=== PATIENT | male | born 1940 | race African-American/Black ===

== ENCOUNTER → 2017-04-20 19:02 | Inpatient (IN) | payer OTHER ==
--- NOTE | 2015-06-26 21:49 | PDOC ---
History of Present Illness - General Chief Complaint: Bleeding from Anus Stated Complaint: RECTAL BLEEDING Time Seen by Provider: 06/26/15 21:49 - History of Present Illness Initial Comments: 06/26/15 21:57 The patient is a 75 year old male with past medical history of hypertension, diabetes, and recent ingrown hernia, who presents to the emergency department with complaints of rectal bleeding that started today. Before being evaluated in the ED he felt the urge to use the restroom and syncopized while walking resulting in him falling and hitting his head. (Marnie Willoughby) Past History - Travel Have you traveled outside of the country in the last 21 days: No Have you been in close contact with anyone: No Do you have fever or illness?: Yes - Past Medical History Diabetes: Yes HTN: Yes Suicide Attempt (Hx): No Other medical history: inguinal hernia L - Immunization History Immunization Up to Date: No - Psycho/Social/Smoking Cessation Hx Anxiety: No Suicidal Ideation: No Smoking Status: No Smoking History: Never smoked Have you smoked in the past 12 months: No Number of Cigarettes Smoked Daily: 0 Information on smoking cessation initiated: No Hx Alcohol Use: No Drug/Substance Use Hx: No Substance Use Type: None <Carmelo Walker - Last Filed: 06/26/15 23:47> - Past Medical History Allergies/Adverse Reactions: Allergies Allergy/AdvReac Type Severity Reaction Status Date / Time No Known Allergies Allergy Verified 06/26/15 21:31 Home Medications: Ambulatory Orders Amlodipine Besylate [Norvasc -] 5 mg PO DAILY #30 tablet 06/01/15 Lisinopril [Prinivil -] 10 mg PO DAILY #30 tablet 06/01/15 Metoprolol Tartrate [Lopressor -] 25 mg PO DAILY #30 tablet 06/01/15 Pantoprazole Sodium [Protonix -] 40 mg PO DAILY #30 tablet.ec 06/01/15 Repaglinide [Prandin -] 0.5 mg PO TIDCM #90 tablet 06/01/15 Review of Systems - Review of Systems Able to Perform ROS?: Yes Is the patient limited Wallisian proficient: No All Other Systems: Reviewed and Negative <Marnie Willoughby - Last Filed: 06/27/15 00:38> - Review of Systems Comments:: 06/26/15 21:58 CONSTITUTIONAL: Absent: fever, no chills, no fatigue EYES: Absent: visual changes ENT: Absent: ear pain, no sore throat CARDIOVASCULAR: Absent: chest pain, no palpitations RESPIRATORY: Absent: cough, no SOB GI: Absent: abdominal pain, no nausea, no vomiting, no constipation, no diarrhea Present: bleeding from anus GENITOURINARY: Absent: dysuria, no frequency, no hematuria MUSKULOSKELETAL: Absent: back pain, no arthralgia, no myalgia SKIN: Absent: rash NEURO: Absent: headache (Marnie Willoughby) *Physical Exam - Vital Signs Vital Signs: Last Vital Signs Temp Pulse Resp BP Pulse Ox 98.1 F 104 H 18 122/61 99 06/27/15 00:14 06/27/15 00:14 06/27/15 00:14 06/27/15 00:14 06/27/15 00:14 - Physical Exam Comments: 06/26/15 22:00 GENERAL: Well-appearing, well-nourished. No apparent distress. HEENT: Normocephalic, atraumatic. PERRL, EOM intact. no scleral icterus CARDIOVASCULAR: Normal S1, S2. Regular rate and rhythm. PULMONARY: Clear to auscultation bilaterally. ABDOMEN: non-distended, non-tender. + abdomen is soft greyson melena per rectum EXTREMITIES: Normal ROM in all four extremities. No gross deformities. SKIN: Warm, dry. No rash, skin shows no evidence of palor NEUROLOGICAL: No focal neurological deficits. Slightly altered but arousable, (Marnie Willoughby) Procedures ECG Review #1 06/26/15 22:35 Sinus tachycardia possible left atrial enlargement left ventricular hypertrophy with repolarization abnormality. Abnormal ECG Vent. Rate: 102 BPM (Marnie Willoughby) ED Treatment Course - LABORATORY CBC & Chemistry Diagram: 06/26/15 22:08 06/26/15 21:50 <Carmelo Walker - Last Filed: 06/26/15 23:47> - LABORATORY CBC & Chemistry Diagram: 06/26/15 22:08 06/26/15 21:50 <Marnie Willoughby - Last Filed: 06/27/15 00:38> - ADDITIONAL ORDERS Additional order review: Laboratory Results 06/26/15 21:50 INR 1.24 H Sodium 143 Potassium 3.4 L Chloride 106 Carbon Dioxide 26 Anion Gap 11 BUN 18 D Creatinine 1.6 H D Creat Clearance w eGFR 42.58 Random Glucose 252 H D Lactic Acid 3.048 H Calcium 9.0 Magnesium 1.9 Total Bilirubin 0.4 D AST 10 L ALT 17 D Alkaline Phosphatase 82 Creatine Kinase 152 Creatine Kinase Index 0.7 CK-MB (CK-2) 1.077 CK-MB (CK-2) Rel Index Cancelled Troponin I 0.02 L Total Protein 7.5 Albumin 3.6 Lipase 140 Blood Type Cancelled Antibody Screen Cancelled Crossmatch See Detail Spec Expiration Date Cancelled 06/26/15 06/26/15 22:08 21:50 RBC 3.50 L Cancelled MCV 89.4 Cancelled MCHC 33.1 Cancelled RDW 14.2 Cancelled MPV 9.4 Cancelled Neutrophils % 52.0 Cancelled Lymphocytes % 37.3 Cancelled Monocytes % 4.6 Cancelled Eosinophils % 5.3 H Cancelled Basophils % 0.8 Cancelled - RADIOLOGY Radiograph Interpretation: 06/27/15 00:36 EXAM: CT of the cervical spine without contrast. Impression: no fracture; as above. EXAM: CT of the brain without contrast. Impression: no hemorrhage or fracture. EXAM: CT evaluation of the abdomen & pelvis without contrast. Impression: right inguinal hernia, as above. Reported by: Reagan Patel MD (Case,Marnie) - Medications Given in the ED: ED Medications Discontinued Medications Generic Name Dose Route Start Last Admin Trade Name Freq PRN Reason Stop Dose Admin Sodium Chloride 1,000 mls @ 1,000 mls/hr 06/26/15 22:35 06/26/15 22:45 Normal Saline - IV 06/26/15 23:34 1,000 mls/hr ASDIR STA Administration Ondansetron HCl 8 mg 06/26/15 22:35 06/26/15 22:47 Zofran Injection - IVPUSH 06/26/15 22:36 8 mg ONCE ONE Administration Medical Decision Making - Critical Care Time Total Critical Care Time (minutes): 60 Critical Care Statement: The care of this patient involved high complexity decision making to prevent further life threatening deterioration of the patient 's condition and/or to evalute & treat vital organ system(s) failure or risk of failure. <Emelle,Sargine - Last Filed: 06/26/15 23:47> - Medical Decision Making 06/26/15 23:47 The scribe's documentation has been prepared under my direction and personally reviewed by me in its entirety. I confirm that the note above accurately reflects all work, treatment, procedures, and medical decision making performed by me. 75-year-old male who presents with a complaint of lower GI bleed. Before coming to the emergency department, the patient had one large bloody bowel movement. Patient was triaged and found to be tachycardic to 120. Denies any nausea vomiting. Denies any abdominal pain. Patient was recently admitted and discharged in the hospital for incarcerated inguinal hernia and small bowel obstruction. Patient did not have surgery at that time. There was no report of any GI bleed at that time also. While in the emergency department, the patient felt the need to have another bowel movement and when he got up he syncopized and hit his head on the floor. A large amount of blood was noted coming from the rectal area. 2 lines were placed in the patient and labs and in addition to CT of the head, cervical spine, and abdomen/pelvis. Hemoglobin was noted to be at 10, which dropped from had dropped tremendously from 13 from the previous admission. Patient also has an acute renal insufficiency with a creatinine of 1.6. Patient is persistently tachycardic. Patient has been accepted by the hospitalist service for admission. Patient has been accepted by Dr. Mast to go to the ICU. Dr. Cast who is covering for Dr. Michelle has been consult and is aware of the patient. 2 units of blood has been ordered for the patient to be infused. (Carmelo Walker) 06/26/15 23:[address] Cast, he was made aware of the patient's status. (Marnie Willoughby) *DC/Admit/Observation/Transfer - Discharge Dispostion Admit: Yes <Carmelo Walker - Last Filed: 06/26/15 23:47> - Diagnosis Diagnosis at time of Disposition: Lower GI bleed - Discharge Dispostion Condition at time of disposition: Guarded - Referrals - Patient Instructions - Post Discharge Activity - Attestations Scribe Attestion: Documentation prepared by Marnie Willoughby, acting as durable medical equipment repairer for Carmelo Walker MD, /DO.
[2015-06-26 22:13] LABS: INR 1.24 (0.86-1.14); PROTHROMBIN TIME (PATIENT) 13.4 SEC (9.5-11.7)
[2015-06-26 22:23] LABS: ALBUMIN 3.6 g/dl (3.5-5.0); BILIRUBIN,TOTAL 0.4 mg/dL (0.2-1.0); CREATININE 1.6 mg/dL (0.6-1.3); MAGNESIUM 1.9 mg/dL (1.8-2.4); TOT PROT 7.5 g/dl (6.4-8.2)
[2015-06-26 22:27] LABS: TROPONIN I 0.02 ng/ml (0.03-0.5)
[2015-06-26 23:19] LABS: BASOPHIL 0.8 % (0-2.0); EOSINOPHIL 5.3 % (0-4.5); MCH 29.6 pg (25.7-33.7); MCHC 33.1 g/dl (32.0-35.9); MEAN CELL VOLUME 89.4 fl (80-96); MEAN PLT VOLUME 9.4 fl (7.5-11.1); PLATELET COUNT 198 K/MM3 (134-434); RDW 14.2 % (11.9-15.9); WHITE BLOOD COUNT 12.6 K/mm3 (4.0-10.0)
--- NOTE | 2015-06-27 00:04 | HP ---
Admitting History and Physical - Admission History of Present Illness: 75yo M c/o BRBPR that started today during a BM at 1500. Pt states that he had the urge to defecate and had a large BRBPR with loose stools. Pt stated several hours later he had another BM with black tarry stools. While in the ER pt had to use the restroom again and when ambulating to the restroom syncopized and hit his head on the floor, sustaining a laceration to the inner left side of bottom lip. He stated he had pain on defecation but denies straining, and was having normal stools for the past several days and had normal brown stools twice daily. +nausea and dizziness that began in the ER. Pt denies CP, SOB, palpitation, blurred vision, fever, chills, V/C. Denies frequent NSAID or ASA use. Pt states he had a bleed many years ago but not as severe as this episodes. Pt was recently discharged 06/01/15 for HTN urgency. PMHx: HTN, DM, inguinal hernia PSHx: hernia repair SOcial Hx: denies ETOH, TObacco, and illicit drug use Family Hx: unknown type of stomach disease in father, CONSTITUTIONAL: generalized weakness Absent: fever, chills, diaphoresis, , malaise, loss of appetite HEENT: Absent: rhinorrhea, nasal congestion, throat pain, throat swelling, difficulty swallowing, mouth swelling, ear pain, eye pain, visual Changes CARDIOVASCULAR: Absent: chest pain, syncope, palpitations, irregular heart rate, lightheadedness , peripheral edema RESPIRATORY: Absent: cough, shortness of breath, dyspnea with exertion, orthopnea, wheezing, stridor, hemoptysis GASTROINTESTINAL:abdominal pain, nausea, melena, hematochezia Absent: abdominal distension, vomiting, diarrhea, constipation, GENITOURINARY: Absent: dysuria, frequency, urgency, hesitancy, hematuria, flank pain, genital pain MUSCULOSKELETAL: Absent: myalgia, arthralgia, joint swelling SKIN: Absent: rash, itching, pallor HEMATOLOGIC/IMMUNOLOGIC: Absent: easy bleeding, easy bruising, lymphadenopathy, frequent infections ENDOCRINE: Absent: unexplained weight gain, unexplained weight loss, heat intolerance, cold intolerance NEUROLOGIC: Absent: headache, focal weakness or paresthesia, dizziness, unsteady gait, seizure, mental status changes, bladder or bowel incontinence PSYCHIATRIC: Absent: anxiety, depression, suicidal or homicidal ideation, hallucinations. Medication Instructions Recorded Amlodipine Besylate [Norvasc -] 5 mg PO DAILY #30 tablet 06/01/15 Lisinopril [Prinivil -] 10 mg PO DAILY #30 tablet 06/01/15 Metoprolol Tartrate [Lopressor -] 25 mg PO DAILY #30 tablet 06/01/15 Pantoprazole Sodium [Protonix -] 40 mg PO DAILY #30 tablet.ec 06/01/15 Repaglinide [Prandin -] 0.5 mg PO TIDCM #90 tablet 06/01/15 Last Vital Signs Temp Pulse Resp BP Pulse Ox 97.9 F 120 H 16 126/74 99 06/26/15 21:28 06/26/15 21:28 06/26/15 21:28 06/26/15 21:28 06/26/15 21:51 GENERAL: Well developed, well nourished. Awake & alert. No acute distress. HEENT: Normocephalic, atraumatic. PERRLA, EOMI. No conjunctival pallor. Sclera are non- icteric. Moist mucous membranes. Oropharynx is clear. NECK: Supple. Full ROM. No JVD. Carotid pulses 2+ and symmetric, without bruits. No thyroidmegaly. No lymphadenopathy. CARDIOVASCULAR: S1 S2 tachycardic . No murmurs, rubs, or gallops. Distal pulses are 2+ and symmetric. PULMONARY: No evidence of respiratory distress. Lungs clear to auscultation bilaterally. No wheezing, rales or rhonchi. ABDOMINAL:+reducible right sided inguinal hernia Soft, Non-tender, Non-distended. No rebound or guarding. No organomegaly. Normoactive bowel sounds. MUSCULOSKELETAL Normal range of motion at all joints. No bony deformities or tenderness. No CVA tenderness. EXTREMITIES: No cyanosis. No clubbing. No edema. No calf tenderness. SKIN: Warm and dry. Normal capillary refill. No rashes. No jaundice. NEUROLOGICAL: Alert, awake, appropriate. Cranial nerves 2-12 intact. No deficits to light touch and temperature in face, upper extremities and lower extremities. No motor deficits in the in face, upper extremities and lower extremities. Normoreflexic in the upper and lower extremities. Normal speech. PSYCHIATRIC: Cooperative. Good eye contact. Appropriate mood and affect. CBCD WBC 12.6 K/mm3 (4.0-10.0) H D 06/26/15 22:08 RBC 3.50 M/mm3 (4.00-5.60) L 06/26/15 22:08 Hgb 10.4 GM/dL (11.7-16.9) L D 06/26/15 22:08 Hct 31.3 % (35.4-49) L D 06/26/15 22:08 MCV 89.4 fl (80-96) 06/26/15 22:08 MCHC 33.1 g/dl (32.0-35.9) 06/26/15 22:08 RDW 14.2 % (11.9-15.9) 06/26/15 22:08 Plt Count 198 K/MM3 (134-434) 06/26/15 22:08 MPV 9.4 fl (7.5-11.1) 06/26/15 22:08 CMP Sodium 143 mmol/L (136-145) 06/26/15 21:50 Potassium 3.4 mmol/L (3.5-5.1) L 06/26/15 21:50 Chloride 106 mmol/L (98-107) 06/26/15 21:50 Carbon Dioxide 26 mmol/L (21-32) 06/26/15 21:50 Anion Gap 11 (8-16) 06/26/15 21:50 BUN 18 mg/dL (7-18) D 06/26/15 21:50 Creatinine 1.6 mg/dL (0.6-1.3) H D 06/26/15 21:50 Creat Clearance w eGFR 42.58 (>60) 06/26/15 21:50 Random Glucose 252 mg/dL (74-106) H D 06/26/15 21:50 Calcium 9.0 mg/dL (8.5-10.1) 06/26/15 21:50 Total Bilirubin 0.4 mg/dL (0.2-1.0) D 06/26/15 21:50 AST 10 U/L (15-37) L 06/26/15 21:50 ALT 17 U/L (12-78) D 06/26/15 21:50 Alkaline Phosphatase 82 U/L (50-136) 06/26/15 21:50 Total Protein 7.5 g/dl (6.4-8.2) 06/26/15 21:50 Albumin 3.6 g/dl (3.5-5.0) 06/26/15 21:50 CARDIAC ENZYMES Creatine Kinase 152 IU/L (38-174) 06/26/15 21:50 Troponin I 0.02 ng/ml (0.03-0.5) L 06/26/15 21:50 A/P 75yo M with PMH HTN, DM and inguinal hernia with GI bleed 1. GI bleed- Admit to MICU for close monitoring, continuous cardiac monitoring. 2 large bore IV, Start Protonix ggt, cbc q8H, NS 2L bolus, NS @ 125cc/h, NPO, type and screen, Consult GI for EGD/colonoscopy. transfuse to keep Hgb >7, trend cardiac markers and EKG for possible demand ischemia due to large acute blood loss. No NSAIDS 2. syncopal episodes- due to acute bleed. F/u ct head and c-spine, fall precautions. bedrest 3. Hypokalemia- replete with KCl 10meq x2. repeat in AM 4. DAVID- likely dehydration. IVF, repeat. avoid nephrotoxic meds 5. HTN- currently normotensive. hold oral hypotensives 6. DM- NPO, monitor sugars closely, FS Q6H, ISS, hold oral hypoglycemics 7. Ingunial hernia- reducible. 8. DVT ppx- SCD - Past Medical History Cardiovascular: Yes: HTN Endocrine: Yes: Diabetes Mellitus - Smoking History Smoking history: Never smoked Have you smoked in the past 12 months: No Aproximately how many cigarettes per day: 0 - Alcohol/Substance Use Hx Alcohol Use: No Home Medications - Allergies Allergies/Adverse Reactions: Allergies Allergy/AdvReac Type Severity Reaction Status Date / Time No Known Allergies Allergy Verified 06/26/15 21:31 - Home Medications Home Medications: Ambulatory Orders Amlodipine Besylate [Norvasc -] 5 mg PO DAILY #30 tablet 06/01/15 Lisinopril [Prinivil -] 10 mg PO DAILY #30 tablet 06/01/15 Metoprolol Tartrate [Lopressor -] 25 mg PO DAILY #30 tablet 06/01/15 Pantoprazole Sodium [Protonix -] 40 mg PO DAILY #30 tablet.ec 06/01/15 Repaglinide [Prandin -] 0.5 mg PO TIDCM #90 tablet 06/01/15 Physical Examination Vital Signs: Vital Signs Temperature 97.9 F 06/26/15 21:28 Pulse Rate 120 H 06/26/15 21:28 Respiratory Rate 16 06/26/15 21:28 Blood Pressure 126/74 06/26/15 21:28 O2 Sat by Pulse Oximetry (%) 99 06/26/15 21:51 Labs: CBC, BMP 06/26/15 22:08 06/26/15 21:50
[2015-06-27] MEDS: PANTOPRAZOLE SODIUM 80 MG in SODIUM CHLORIDE 100 ML IVPB SCH ×2 (01:30→11:34)
[2015-06-27 01:39] VITALS: BMI 28.0
[2015-06-27] MEDS: SODIUM CHLORIDE 1,000 ML IV SCH ×3 (02:00→21:47)
[2015-06-27] MEDS: INSULIN SLIDING SCALE (NOVOLOG) 1 VIAL SQ SCH ×4 (06:47→19:07)
[2015-06-27] MEDS: KCL 10 MEQ IVPB 100 ML IVPB SCH ×2 (06:50→06:58)
[2015-06-27 08:12] LABS: MCHC 34.2 g/dl (32.0-35.9); MEAN CELL VOLUME 87.6 fl (80-96); MEAN PLT VOLUME 8.9 fl (7.5-11.1); PLATELET COUNT 132 K/MM3 (134-434); RDW 14.3 % (11.9-15.9); WHITE BLOOD COUNT 9.6 K/mm3 (4.0-10.0)
--- NOTE | 2015-06-27 08:36 | CONSULT ---
Consult Consult Specialty:: PULMONARY/CCM Referred by:: ER Reason for Consultation:: GI Bleed - History of Present Illness Chief Complaint: rectal bleeding History of Present Illness: 75yo male with h/o HTN, DM, inguinal hernia who presents after rectal bleeding. He states that it started out as bright red but then he had another episode where he had dark tarry stools. While in the ER, he had a syncopal episode while walking to the bathroom. He denies taking NSAIDs or ASA. No alcohol. He reports having a colonoscopy in the past but many years ago. No fevers, chills or sweats. No nausea, vomiting or abdominal pain. No chest pain or shortness of breath. Currently in the ICU for monitoring, AM H/H pending. - History Source History Provided By: Patient, Medical Record Limitations to Obtaining History: No Limitations - Past Medical History Cardio/Vascular: Yes: HTN Endocrine: Yes: Diabetes Mellitus - Past Surgical History Past Surgical History: Yes: Hernia Repair - Alcohol/Substance Use Hx Alcohol Use: No - Smoking History Smoking history: Never smoked Have you smoked in the past 12 months: No Aproximately how many cigarettes per day: 0 Home Medications - Allergies Allergies/Adverse Reactions: Allergies Allergy/AdvReac Type Severity Reaction Status Date / Time No Known Allergies Allergy Verified 06/26/15 21:31 - Home Medications Home Medications: Ambulatory Orders Amlodipine Besylate [Norvasc -] 5 mg PO DAILY #30 tablet 06/01/15 Lisinopril [Prinivil -] 10 mg PO DAILY #30 tablet 06/01/15 Metoprolol Tartrate [Lopressor -] 25 mg PO DAILY #30 tablet 06/01/15 Pantoprazole Sodium [Protonix -] 40 mg PO DAILY #30 tablet.ec 06/01/15 Repaglinide [Prandin -] 0.5 mg PO TIDCM #90 tablet 06/01/15 Family Disease History - Family Disease History Other Family History: non-contributory Review of Systems - Review of Systems Constitutional: reports: Weakness. denies: Chills, Fever Eyes: denies: Recent Change in Vision HENT: denies: Nasal Congestion, Throat Pain Neck: denies: Stiffness, Tenderness Cardiovascular: denies: Chest Pain, Edema, Palpitations, Shortness of Breath Respiratory: denies: Cough, Hemoptysis, SOB, Wheezing Gastrointestinal: reports: Melena, Rectal Bleeding. denies: Abdominal Pain, Diarrhea, Nausea Genitourinary: denies: Dysuria, Hematuria Neurological: reports: Syncope. denies: Headache Endocrine: denies: Unexplained Weight Gain, Unexplained Weight Loss Physical Exam Vital Sings: Vital Signs Temperature 98.2 F 06/27/15 06:00 Pulse Rate 83 06/27/15 08:00 Respiratory Rate 20 06/27/15 08:00 Blood Pressure 133/64 06/27/15 08:00 O2 Sat by Pulse Oximetry (%) 99 06/27/15 01:11 Constitutional: Yes: Calm Eyes: Yes: Conjunctiva Clear, EOM Intact HENT: Yes: Atraumatic, Normocephalic Neck: Yes: Supple, Trachea Midline Cardiovascular: Yes: Regular Rate and Rhythm Respiratory: Yes: Regular, Diminished (decreased breath sounds at the bases) ...Clubbing: No Gastrointestinal: Yes: Normal Bowel Sounds, Soft. No: Tenderness Edema: No Neurological: Yes: Alert, Oriented Labs: CBC, BMP 06/27/15 07:40 Imaging - Results Chest X-ray: Report Reviewed, Image Reviewed (no infiltrates) Assessment/Plan Acute GI Bleed Syncope from above HTN DM CKD - monitor H/H - transfuse as needed - protonix - GI evaluation - IVF - NPO - ensure large bore peripheral access - DVT prophylaxis - continue ICU monitoring for now Thank you for this consult Agus Jordan MD
--- NOTE | 2015-06-27 09:09 | HOSP ---
Subjective - Review of Symptoms Events since last encounter: Hospitalist-addendum Pt awake and alert. No further rectal bleeding. No chest pain or sob. S/p 1 unit prbc overnight as discussed with RN. Awaiting gi eval. VSS. General: Chills, Fatigue, Malaise HEENT: Head Aches, Visual Changes Cardiovascular: Chest Pain Gastrointestinal: Nausea, Vomiting, Abdominal Pain, Diarrhea, Constipation, Melena, Hematochezia Genitourinary: Incontinence Musculoskeletal: Back Pain Neurological: Weakness Physical Examination Vital Signs: Vital Signs Temperature 98.2 F 06/27/15 06:00 Pulse Rate 83 06/27/15 08:00 Respiratory Rate 20 06/27/15 08:00 Blood Pressure 133/64 06/27/15 08:00 O2 Sat by Pulse Oximetry (%) 99 06/27/15 01:11 Constitutional: Yes: Well Nourished, No Distress HENT: Yes: Atraumatic, Normocephalic, Other (pallor, no scleral icterus. Facial/ lip laceration, no bleeding) Cardiovascular: Yes: Regular Rate and Rhythm, S1, S2 Respiratory: Yes: CTA Bilaterally. No: Rales, Rhonchi, Wheezes Gastrointestinal: Yes: Normal Bowel Sounds, Soft, Hernia (rt sided, reducible). No: Distention, Tenderness Extremities: No: Cyanosis, Erythema Edema: No Integumentary: No: Rash Neurological: Yes: Alert, Cran Nerves II-XII Intact Labs: CBC, BMP 06/27/15 07:40 CBCD WBC 9.6 K/mm3 (4.0-10.0) 06/27/15 07:40 RBC 3.00 M/mm3 (4.00-5.60) L 06/27/15 07:40 Hgb 9.0 GM/dL (11.7-16.9) L D 06/27/15 07:40 Hct 26.3 % (35.4-49) L D 06/27/15 07:40 MCV 87.6 fl (80-96) 06/27/15 07:40 MCHC 34.2 g/dl (32.0-35.9) 06/27/15 07:40 RDW 14.3 % (11.9-15.9) 06/27/15 07:40 Plt Count 132 K/MM3 (134-434) L D 06/27/15 07:40 MPV 8.9 fl (7.5-11.1) 06/27/15 07:40 CMP Sodium 143 mmol/L (136-145) 06/26/15 21:50 Potassium 3.4 mmol/L (3.5-5.1) L 06/26/15 21:50 Chloride 106 mmol/L (98-107) 06/26/15 21:50 Carbon Dioxide 26 mmol/L (21-32) 06/26/15 21:50 Anion Gap 11 (8-16) 06/26/15 21:50 BUN 18 mg/dL (7-18) D 06/26/15 21:50 Creatinine 1.6 mg/dL (0.6-1.3) H D 06/26/15 21:50 Creat Clearance w eGFR 42.58 (>60) 06/26/15 21:50 Random Glucose 252 mg/dL (74-106) H D 06/26/15 21:50 Calcium 9.0 mg/dL (8.5-10.1) 06/26/15 21:50 Total Bilirubin 0.4 mg/dL (0.2-1.0) D 06/26/15 21:50 AST 10 U/L (15-37) L 06/26/15 21:50 ALT 17 U/L (12-78) D 06/26/15 21:50 Alkaline Phosphatase 82 U/L (50-136) 06/26/15 21:50 Total Protein 7.5 g/dl (6.4-8.2) 06/26/15 21:50 Albumin 3.6 g/dl (3.5-5.0) 06/26/15 21:50 CARDIAC ENZYMES Creatine Kinase 152 IU/L (38-174) 06/26/15 21:50 Troponin I 0.02 ng/ml (0.03-0.5) L 06/26/15 21:50 Current Medications Generic Name Dose Route Start Last Admin Trade Name Freq PRN Reason Stop Dose Admin Acetaminophen 650 mg 06/27/15 00:32 Tylenol - PO Q6H PRN FEVER OR PAIN Chlorhexidine Gluconate 1 applic 06/27/15 22:00 Hibiclens For Decolonization - TP HS KWAKU Sodium Chloride 1,000 mls @ 125 mls/hr 06/27/15 00:45 06/27/15 05:00 Normal Saline - IV 125 mls/hr ASDIR KWAKU Administration Pantoprazole Sodium 80 mg/ 100 mls @ 10 mls/hr 06/27/15 00:45 06/27/15 01:30 Sodium Chloride IVPB 10 mls/hr Q10H KWAKU Administration 8 MG/HR Insulin Aspart 0 units 06/27/15 03:15 06/27/15 06:47 Novolog Flexpen Sliding Scale - SQ Not Given Q6HPO [facility] Protocol Metoprolol Tartrate 25 mg 06/27/15 10:00 Lopressor - PO DAILY KWAKU Mupirocin 1 applic 06/27/15 10:00 Bactroban Ointment (For Decolonization) - NS 07/02/15 09:59 BID KWAKU Ondansetron HCl 4 mg 06/27/15 00:32 Zofran Injection - IVPB Q6H PRN NAUSEA Hospitalist Encounter Assessment: A/P This is a 75yo M with PMHx HTN, DM and inguinal hernia now presenting with dark tarry stool and BRBPR with epidose of syncope GI bleed, likely upper -cont icu monitoring -protonix drip -npo -ivf -gi eval pending with Dr. Cast f/u h/h, s/p 1 unit prbc; transfuse to keep hgb >7 (baseline appears to be 13, today 9<--10.4) Syncope, likely secondary acute blood loss -F/u ct head and c-spine -fall precautions -bedrest for now -cont ivf -check orthostatics Acute blood loss anemia secondary #1 -f/u h/h and transfuse to keep hgb >7 HTN-controlled, stable -hold antihypertensives secondary to acute blood loss Hypokalemia -replete and check mg; but K+ likely to increased after prbc transfusion as well DAVID- likely dehydration and acute blood loss -avoid nephrotoxic agents -f/u bun/creat (baseline appears to be 1.2-1.5, today 1.6) -f/u UA DM-uncontrolled -NISS with fsbs q6 -hold oral hypoglycemics while npo Ingunial hernia- reducible -f/u as outpatient for elective surgery dvt/gi prophylaxis -scds, no anticoagulation secondary gib -ppi drip
--- NOTE | 2015-06-27 09:57 | PN ---
Progress Note (short form) - Note Progress Note: PULMONARY/CCM Pt found on floor with pool of blood with clots. He denies LOC, states he slipped. EBL ~500mL, will transfuse 2 units PRBC. Agus Jordan MD
--- NOTE | 2015-06-27 10:05 | EKG ---
Test Reason : Blood Pressure : / mmHG Vent. Rate : 102 BPM Atrial Rate : 102 BPM P-R Int : 160 ms QRS Dur : 092 ms QT Int : 374 ms P-R-T Axes : 072 027 066 degrees QTc Int : 487 ms SINUS TACHYCARDIA POSSIBLE LEFT ATRIAL ENLARGEMENT LEFT VENTRICULAR HYPERTROPHY WITH REPOLARIZATION ABNORMALITY ABNORMAL ECG WHEN COMPARED WITH ECG OF 28-MAY-2015 22:15, NO SIGNIFICANT CHANGE WAS FOUND Confirmed by MALI VOGT MD ([id number]) on 06/27/2015 10:04:41 AM Referred By: Overread By: MALI VOGT MD
--- NOTE | 2015-06-27 11:23 | CONSULT ---
Consult Consult Specialty:: gastroenterology Referred by:: hospitalist Reason for Consultation:: lower gi bleeding - History of Present Illness History of Present Illness: 75 y/o male has intermittent rectal bleeding for the past 3 years which are all self limited. Yesterday he developed several episodes of rectal bleeding resulting in syncopal episodes.This morning developed severe bleeding resulting in syncopal episodes.History of hernia repair. - History Source History Provided By: Patient Limitations to Obtaining History: No Limitations - Past Medical History Cardio/Vascular: Yes: HTN Endocrine: Yes: Diabetes Mellitus - Past Surgical History Past Surgical History: Yes: Hernia Repair - Alcohol/Substance Use Hx Alcohol Use: No - Smoking History Smoking history: Never smoked Have you smoked in the past 12 months: No Aproximately how many cigarettes per day: 0 Home Medications - Allergies Allergies/Adverse Reactions: Allergies Allergy/AdvReac Type Severity Reaction Status Date / Time No Known Allergies Allergy Verified 06/26/15 21:31 - Home Medications Home Medications: Ambulatory Orders Amlodipine Besylate [Norvasc -] 5 mg PO DAILY #30 tablet 06/01/15 Lisinopril [Prinivil -] 10 mg PO DAILY #30 tablet 06/01/15 Metoprolol Tartrate [Lopressor -] 25 mg PO DAILY #30 tablet 06/01/15 Pantoprazole Sodium [Protonix -] 40 mg PO DAILY #30 tablet.ec 06/01/15 Repaglinide [Prandin -] 0.5 mg PO TIDCM #90 tablet 06/01/15 Family Disease History - Family Disease History Other Family History: non-contributory Review of Systems - Review of Systems Constitutional: reports: No Symptoms Gastrointestinal: reports: Abdominal Pain Physical Exam-GI Vital Signs: Vital Signs Temperature 98.0 F 06/27/15 10:00 Pulse Rate 80 06/27/15 10:00 Respiratory Rate 20 06/27/15 10:00 Blood Pressure 136/78 06/27/15 10:00 O2 Sat by Pulse Oximetry (%) 99 06/27/15 01:11 Constitutional: Yes: No Distress Eyes: Yes: Conjunctiva Clear HENT: Yes: Normocephalic Neck: Yes: Trachea Midline Cardiovascular: Yes: Regular Rate and Rhythm ...Palpate: Yes: Soft. No: Firm/Rigid, Guarding, Hepatomegaly, Mass, Pulsatile Mass, Splenomegaly, Tenderness Labs: CBC, BMP 06/27/15 07:40 INR, PTT INR 1.24 (0.86-1.14) H 06/26/15 21:50 Imaging - Results Cat Scan: Image Reviewed (right inguinal hernia, small bowel , no dilatation, no SBO) Problem List - Problems (1) Lower GI bleed Assessment/Plan: diverticular bleeding vs malignant lesion r>for colonoscopy, surgical consult ct of head
[2015-06-27 16:41] LABS: MCH 29.4 pg (25.7-33.7); MCHC 33.3 g/dl (32.0-35.9); MEAN CELL VOLUME 88.1 fl (80-96); MEAN PLT VOLUME 9.2 fl (7.5-11.1); PLATELET COUNT 109 K/MM3 (134-434); RDW 14.4 % (11.9-15.9); WHITE BLOOD COUNT 11.5 K/mm3 (4.0-10.0)
[2015-06-27] MEDS: PROPOFOL 100 ML IVPB SCH (20:05)
[2015-06-27 20:59] LABS: URINE APPEARANCE CLEAR; URINE BILIRUBIN NEGATIVE (NEGATIVE); URINE BLOOD NEGATIVE (NEGATIVE); URINE COLOR YELLOW; URINE GLUCOSE (UA) NEGATIVE (NEGATIVE); URINE KETONE NEGATIVE (NEGATIVE); URINE LEUK ESTERASE NEGATIVE (NEGATIVE); URINE NITRITE NEGATIVE (NEGATIVE); URINE PROTEIN NEGATIVE (NEGATIVE); URINE UROBILINOGEN NEGATIVE E.U./dl (0.2-1.0)
[2015-06-27] MEDS: MUPIROCIN 2% TOPICAL OINTMENT FOR DECOLONIZATION NS SCH (21:48)
[2015-06-27] MEDS: CHLORHEXIDINE GLUCONATE 4% CLEANSER FOR DECOLONIZATION TP SCH (21:48)
[2015-06-27 22:11] LABS: MCHC 32.6 g/dl (32.0-35.9); MEAN PLT VOLUME 8.8 fl (7.5-11.1); PLATELET COUNT 114 K/MM3 (134-434); RDW 14.8 % (11.9-15.9)
[2015-06-28] MEDS: INSULIN SLIDING SCALE (NOVOLOG) 1 VIAL SQ SCH ×4 (01:23→18:18)
--- NOTE | 2015-06-28 07:21 | PN ---
GI Progress Note Subjective: pt had rebleeding last nigh at 12 am . The hemoglobin dropped to 7 and low platelets. Platelets were given. Since that time no further bleeding was noted. Fleet enemas was given no active bleeding noted. This morning pt was noted to have a high temperature despite being on Levaquin. - Objective Vital Signs: Vital Signs Temperature 100.6 F H 06/28/15 06:00 Pulse Rate 101 H 06/28/15 06:00 Respiratory Rate 10 L 06/28/15 06:03 Blood Pressure 116/48 06/28/15 06:00 O2 Sat by Pulse Oximetry (%) 100 06/27/15 22:00 Constitutional: Well Nourished Eyes: Yes: Conjunctiva Clear HENT: Yes: Atraumatic Neck: Yes: Supple Cardiovascular: Yes: Regular Rate and Rhythm Respiratory: Yes: CTA Bilaterally ...Palpate: Yes: Soft. No: Firm/Rigid, Guarding, Hepatomegaly, Mass, Pulsatile Mass, Splenomegaly, Tenderness Labs: CBC, BMP 06/27/15 22:00 INR, PTT INR 1.24 (0.86-1.14) H 06/26/15 21:50 Problem List - Problems (1) Lower GI bleed Assessment/Plan: -Diverticular bleeding R> if bleeding recurs will need to transfuse 2 units of FFP. No bleeding noted after platelet transfusion (2) Fever Assessment/Plan: possibly secondary to pneumonia R. repeat c-xray ID consult
--- NOTE | 2015-06-28 09:10 | PN ---
Progress Note (short form) - Note Progress Note: PULMONARY/CCM Pt seen and examined in the ICU. Events noted, pt s/p colonoscopy found to have diverticular disease s/p clipping. Intubated overnight likely from aspiration. Last Vital Signs Temp Pulse Resp BP Pulse Ox 100.6 F H 101 H 10 L 116/48 100 06/28/15 06:00 06/28/15 06:00 06/28/15 06:03 06/28/15 06:00 06/27/15 22:00 Intake & Output 06/25/15 06/26/15 06/27/15 06/28/15 23:59 23:59 23:59 23:59 Intake Total 4994 1770 Output Total 500 600 Balance 4494 1170 Weight 175 lb 168 lb 6.4 oz 175 lb 8 oz Gen: intubated, sedated Heart: tachycardic, regular Lung: decreased breath sounds at the bases Abd: soft, nontender Ext: no edema CBC, BMP 06/27/15 22:00 06/26/15 21:50 CXR: LLL infiltrate Active Medications Acetaminophen (Tylenol -) 650 mg PO Q6H PRN PRN Reason: FEVER OR PAIN Chlorhexidine Gluconate (Hibiclens For Decolonization -) 1 applic TP HS [facility] Last Admin: 06/27/15 21:48 Dose: 1 applic Fentanyl (Sublimaze Injection -) 50 mcg IVPUSH [id number] PRN PRN Reason: PAIN Stop: 06/30/15 20:03 Levofloxacin (Levaquin 250 Mg Premixed Ivpb -) 50 mls @ 50 mls/hr IVPB DAILY [facility] Propofol (Diprivan -) 100 mls @ 2.292 mls/hr IVPB TITR [facility]; 5 MCG/KG/MIN PRN Reason: Protocol Last Titration: 06/28/15 04:21 Dose: 40 mcg/kg/min Pantoprazole Sodium 80 mg/ (Sodium Chloride) 100 mls @ 10 mls/hr IVPB Q10H [facility] PRN Reason: 8 MG/HR Last Admin: 06/28/15 07:30 Dose: Not Given Sodium Chloride (Normal Saline -) 1,000 mls @ 125 mls/hr IV ASDIR [facility] Last Admin: 06/27/15 21:47 Dose: 125 mls/hr Insulin Aspart (Novolog Flexpen Sliding Scale -) 0 units SQ Q6HPO [facility] PRN Reason: Protocol Last Admin: 06/28/15 06:40 Dose: 2 units Metoprolol Tartrate (Lopressor -) [address] [facility] Mupirocin (Bactroban Ointment (For Decolonization) -) [address] [facility] Stop: 07/02/15 21:59 Last Admin: 06/27/15 21:48 Dose: 1 applic Ondansetron HCl (Zofran Injection -) 4 mg IVPB Q6H PRN PRN Reason: NAUSEA A/P Acute Lower Diverticular GI Bleed Acute Blood Loss Anemia Acute Respiratory Failure Pneumonia likely aspiration HTN DM CKD - monitor CBC, coags - transfuse as needed - protonix - IVF - replete lytes - IV antibiotics - f/u cultures - NPO - ensure large bore peripheral access - DVT prophylaxis - continue ICU monitoring
--- NOTE | 2015-06-28 09:38 | PN ---
Progress Note (short form) - Note Progress Note: Pt sedated on the vent. S/p colonoscopy yesterday with clipping. Repeat pending today. Still oozing blood as per RN. Fever 100.6. S/p 3 units prbcs o/n as per RN. Last Vital Signs Temp Pulse Resp BP Pulse Ox 100.6 F H 101 H 10 L 116/48 100 06/28/15 06:00 06/28/15 06:00 06/28/15 09:00 06/28/15 06:00 06/28/15 09:00 Physical Examination Constitutional: Yes: Well Nourished, No Distress HENT: Yes: Atraumatic, Normocephalic, Other (pallor, no scleral icterus. Facial/ lip laceration, no bleeding) Cardiovascular: Yes: Regular Rate and Rhythm, S1, S2 Respiratory: Yes: CTA Bilaterally. No: Rales, Rhonchi, Wheezes Gastrointestinal: Yes: Normal Bowel Sounds, Soft, Hernia (rt sided, reducible). No: Distention, Tenderness Extremities: No: Cyanosis, Erythema Edema: No Integumentary: No: Rash Neurological: Yes: sedated on the vent, unable to assess [employer] Labs: CBCD WBC 20.0 K/mm3 (4.0-10.0) H D 06/27/15 22:00 RBC 2.55 M/mm3 (4.00-5.60) L D 06/27/15 22:00 Hgb 7.4 GM/dL (11.7-16.9) L D 06/27/15 22:00 Hct 22.7 % (35.4-49) L D 06/27/15 22:00 MCV 89.0 fl (80-96) 06/27/15 22:00 MCHC 32.6 g/dl (32.0-35.9) 06/27/15 22:00 RDW 14.8 % (11.9-15.9) 06/27/15 22:00 Plt Count 114 K/MM3 (134-434) L 06/27/15 22:00 MPV 8.8 fl (7.5-11.1) 06/27/15 22:00 CMP Sodium 143 mmol/L (136-145) 06/26/15 21:50 Potassium 3.4 mmol/L (3.5-5.1) L 06/26/15 21:50 Chloride 106 mmol/L (98-107) 06/26/15 21:50 Carbon Dioxide 26 mmol/L (21-32) 06/26/15 21:50 Anion Gap 11 (8-16) 06/26/15 21:50 BUN 18 mg/dL (7-18) D 06/26/15 21:50 Creatinine 1.6 mg/dL (0.6-1.3) H D 06/26/15 21:50 Creat Clearance w eGFR 42.58 (>60) 06/26/15 21:50 Random Glucose 252 mg/dL (74-106) H D 06/26/15 21:50 Calcium 9.0 mg/dL (8.5-10.1) 06/26/15 21:50 Total Bilirubin 0.4 mg/dL (0.2-1.0) D 06/26/15 21:50 AST 10 U/L (15-37) L 06/26/15 21:50 ALT 17 U/L (12-78) D 06/26/15 21:50 Alkaline Phosphatase 82 U/L (50-136) 06/26/15 21:50 Total Protein 7.5 g/dl (6.4-8.2) 06/26/15 21:50 Albumin 3.6 g/dl (3.5-5.0) 06/26/15 21:50 CARDIAC ENZYMES Creatine Kinase 152 IU/L (38-174) 06/26/15 21:50 Troponin I 0.02 ng/ml (0.03-0.5) L 06/26/15 21:50 Current Medications Generic Name Dose Route Start Last Admin Trade Name Freq PRN Reason Stop Dose Admin Acetaminophen 650 mg 06/27/15 20:52 Tylenol - PO Q6H PRN FEVER OR PAIN Chlorhexidine Gluconate 1 applic 06/27/15 22:00 06/27/15 21:48 Hibiclens For Decolonization - TP 1 applic HS [facility] Administration Fentanyl 50 mcg 06/27/15 20:02 Sublimaze Injection - IVPUSH 06/30/15 20:03 [id number] PRN PAIN Levofloxacin 50 mls @ 50 mls/hr 06/28/15 10:00 Levaquin 250 Mg Premixed Ivpb - IVPB DAILY [facility] Propofol 100 mls @ 2.292 mls/hr 06/27/15 20:00 06/28/15 04:21 Diprivan - IVPB 40 mcg/kg/min TITR [facility] Titration Protocol 5 MCG/KG/MIN Pantoprazole Sodium 80 mg/ 100 mls @ 10 mls/hr 06/28/15 06:45 06/28/15 07:30 Sodium Chloride IVPB Not Given Q10H K[facility]U 8 MG/HR Sodium Chloride 1,000 mls @ 125 mls/hr 06/27/15 20:52 06/27/15 21:47 Normal Saline - IV 125 mls/hr ASDIR KWAKU Administration Clindamycin Phosphate 300 mg/ 50 mls @ 104 mls/hr 06/28/15 09:15 Dextrose IVPB Q6H-IV [facility] Insulin Aspart 0 units 06/28/15 00:00 06/28/15 06:40 Novolog Flexpen Sliding Scale - SQ 2 units Q6HPO [facility] Administration Protocol Metoprolol Tartrate 25 mg 06/28/15 10:00 Lopressor - PO DAILY [facility] Mupirocin 1 applic 06/27/15 22:00 06/27/15 21:48 Bactroban Ointment (For Decolonization) - NS 07/02/15 21:59 1 applic BID [facility] Administration Ondansetron HCl 4 mg 06/27/15 20:52 Zofran Injection - IVPB Q6H PRN NAUSEA Hospitalist Encounter Assessment: A/P This is a 75yo M with PMHx HTN, DM and inguinal hernia now presenting with dark tarry stool and BRBPR with epidose of syncope GI bleed, lower due to diverticular bleed -s/p colonoscopy yesterday and clipped, with oozing o/n for repeat colonoscopy today with Dr. Cast; consent for procedure obtained from dtr -gi f/u appreciated -no further melena, all BRBPR cw diverticular LGIB and as per scope -surgery on consult as well pending repeat colonoscopy if will need OR;consent for procedure obtained from dtr -cont icu monitoring -protonix drip -npo -ivf -f/u h/h dropped to 7.4 from 9, s/p 3 unit prbcs o/n 1 unit ffp and 2 plts; transfuse to keep hgb >7 (baseline appears to be 13) -repeat h/h pending this am Syncope, likely secondary acute blood loss -F/u ct head and c-spine negative -fall precautions -bedrest for now -cont ivf -check orthostatics Acute blood loss anemia secondary #1 -f/u h/h and transfuse to keep hgb >7; s/p 3 units prbcs o/n Fever r/o aspiration -pt remains on the vent; pulmonary/CC mgmt appreciated -f/u cxr and abg -trend fever -f/u cultures -cont levaquin and added flagyl to cover anaerobes HTN-controlled, stable -hold antihypertensives secondary to acute blood loss Hypokalemia -replete and check mg; but K+ likely to increased after prbc transfusion as well DAVID- likely dehydration and acute blood loss -avoid nephrotoxic agents -f/u bun/creat (baseline appears to be 1.2-1.5, yesterday 1.6), pending -f/u UA DM-uncontrolled -NISS with fsbs q6 -hold oral hypoglycemics while npo Ingunial hernia- reducible -f/u as outpatient for elective surgery dvt/gi prophylaxis -scds, no anticoagulation secondary gib -ppi drip GI bleed, lower due to diverticular bleed -s/p colonscopy yesterday and clipped, with oozing o/n for repeat colonoscopy today with Dr. Cast; consent for procedure obtained from [facility] -gi f/u appreciated -no further melena, all BRBPR cw diverticular LGIB and as per scope -surgery on consult as well pending repeat colonoscopy if will need OR;consent for procedure obtained from dtr -cont icu monitoring -protonix drip -npo -ivf -f/u h/h dropped to 7.4 from 9, s/p 3 unit prbcs o/n 1 unit ffp and 2 plts; transfuse to keep hgb >7 (baseline appears to be 13) -repeat h/h pending this am Syncope, likely secondary acute blood loss -F/u ct head and c-spine negative -fall precautions -bedrest for now -cont ivf -check orthostatics Acute blood loss anemia secondary #1 -f/u h/h and transfuse to keep hgb >7; s/p 3 units prbcs o/n Fever r/o aspiration -pt remains on the vent; pulmonary/CC mgmt appreciated -f/u cxr and abg -trend fever -f/u cultures -cont levaquin and add flagyl to cover anaerobes HTN-controlled, stable -hold antihypertensives secondary to acute blood loss Hypokalemia -replete and check mg; but K+ likely to increased after prbc transfusion as well DAVID- likely dehydration and acute blood loss -avoid nephrotoxic agents -f/u bun/creat (baseline appears to be 1.2-1.5, yesterday 1.6), pending -f/u UA DM-uncontrolled -NISS with fsbs q6 -hold oral hypoglycemics while npo Ingunial hernia- reducible -f/u as outpatient for elective surgery dvt/gi prophylaxis -scds, no anticoagulation secondary gib -ppi drip
[2015-06-28] MEDS: METOPROLOL TARTRATE 25 MG TABLET (FP) PO SCH (10:00)
[2015-06-28 10:10] LABS: MCH 29.6 pg (25.7-33.7); MCHC 34.5 g/dl (32.0-35.9); MEAN CELL VOLUME 85.8 fl (80-96); MEAN PLT VOLUME 8.4 fl (7.5-11.1); PLATELET COUNT 129 K/MM3 (134-434); RDW 14.3 % (11.9-15.9); WHITE BLOOD COUNT 22.8 K/mm3 (4.0-10.0)
[2015-06-28] MEDS: MUPIROCIN 2% TOPICAL OINTMENT FOR DECOLONIZATION NS SCH ×2 (10:26→22:15)
--- NOTE | 2015-06-28 10:29 | PN ---
Progress Note (short form) - Note Progress Note: ID Consult dictated Respiratory failure Probable aspiration LLL pneumonia Leukocytosis-multifactorial S/P LGIB Pending c/s empiric ceftriaxone 2gm IVPB q24h Ventilatory support
[2015-06-28 10:45] LABS: INR 1.36 (0.86-1.14); PROTHROMBIN TIME (PATIENT) 14.4 SEC (9.5-11.7)
[2015-06-28 10:55] LABS: ALBUMIN 2.4 g/dl (3.5-5.0); CALCIUM 7.9 mg/dL (8.5-10.1); CREATININE 2.3 mg/dL (0.6-1.3); MAGNESIUM 2.3 mg/dL (1.8-2.4); PHOSPHOROUS 3.5 mg/dL (2.5-4.9); TOT PROT 4.6 g/dl (6.4-8.2); TROPONIN I 0.11 ng/ml (0.03-0.5)
[2015-06-28] MEDS: PROPOFOL 100 ML IVPB SCH ×3 (11:05→22:14)
[2015-06-28 11:23] LABS: PLATELET COMMENT2 NO CLOTTING DETECTED; PLATELET ESTIMATE SLT DECREASED (NORMAL)
[2015-06-28 12:08] LABS: URINE APPEARANCE SLCLOUDY; URINE BILIRUBIN NEGATIVE (NEGATIVE); URINE BLOOD NEGATIVE (NEGATIVE); URINE COLOR YELLOW; URINE GLUCOSE (UA) NEGATIVE (NEGATIVE); URINE KETONE NEGATIVE (NEGATIVE); URINE LEUK ESTERASE NEGATIVE (NEGATIVE); URINE NITRITE NEGATIVE (NEGATIVE); URINE PROTEIN NEGATIVE (NEGATIVE); URINE UROBILINOGEN NEGATIVE E.U./dl (0.2-1.0)
[2015-06-28] MEDS: CEFTRIAXONE 2 GM in DEXTROSE 5%-WATER - 100 ML IVPB SCH (12:26)
--- NOTE | 2015-06-28 16:07 | CONSULT ---
Consult - text type - Consultation Consultation Note: HPI: Called to evaluate 75yo male who had BRBPR that started 06/27/15 at 1500. He was admitted to [facility]. While in the ER, pt syncopized while ambulating on his way to use the restroom. Pt is now in the ICU where he was intubated s/p colonoscopy 06/28/15 (bleeding diverticula; clipping) secondary to aspiration. Per RN notes, he had some pain with defecation but denies straining. +nausea and dizziness. Per ER documentation, he had a bleed many years ago but not as severe as this episodes. Recently discharged 06/01/15 for HTN urgency. Patient had multiple bloody bm's yesterday. Received a total of: 8 PRBC, 2 FFP, 2 PLTs. Per previous documentation: denies CP, SOB, palpitation, fever, chills. Denies frequent NSAID or ASA use. PMHx: HTN, DM, inguinal hernia PSHx: hernia repair Medications Acetaminophen (Tylenol -) 650 mg PO Q6H PRN Pantoprazole Sodium 80 mg/ (Sodium Chloride) 100 mls @ 10 mls/hr IVPB Q10H [facility] Ceftriaxone Sodium 2 gm/ (Dextrose) 100 mls @ 200 mls/hr IVPB DAILY [facility] Metoprolol Tartrate (Lopressor -) 25 mg PO DAILY [facility] Mupirocin (Bactroban Ointment (For Decolonization) -) 1 applic NS BID [facility] Allergies: NKDA Colonoscopy 06/28: report pending CXR 06/27/15: Left basilar infiltrate CBC 06/28/15 09:35 BMP 06/28/15 09:35 INR, PTT INR 1.36 (0.86-1.14) H 06/28/15 09:35 Intake & Output 06/27/15 06/28/15 06/28/15 23:59 11:59 23:59 Intake Total 3794 1770 Output Total 500 600 100 Balance 3294 1170 -100 Weight 175 lb 8 oz Intake: IV 2100 365 Normal Saline - 1,000 ml 1500 @ 125 mls/hr IV ASDIR KWAK[facility] Rx#:[id number] Diprivan - 100 ml @ 5 MCG 240 /KG/MIN 2.292 mls/hr IVPB TITR [facility] Rx#:[id number] Normal Saline - 1,000 ml 125 @ 125 mls/hr IV ASDIR [facility] Rx#:[id number] IVPB 100 Blood Product 594 Packed Cells 1100 1050 Platelets 255 Output: Gastric Drainage 400 Urine 500 200 100 Void 200 Schwartz 100 Other: Voiding Method Indwelling Catheter Indwelling Catheter # Unmeasured Voids Schwartz 400 Weight Measurement Method Built in [facility] PE General: Intubated. Lungst: cta b/l anteriorly Cor: S1/S2, no murmurs detected Abd: soft, nt, nd, + bs x4 LE: athrombic pumps b/l. no swelling/edema/pain b/l Assessment: Lower GI bleed (diverticula) Plan: 1. Vent per respiratory 2. Serial Hct 3. Transfuse PRBC prn 4. GI/DVT ppx 5. NGT to intermittent lwcs 6. Schwartz to gravity and monitor I/O 7. Follow up repeat colonoscopy 8. Surgery team will follow 9. Above plan was discussed with Dr. Breaux and agrees.
--- NOTE | 2015-06-28 17:28 | PN ---
Progress Note (short form) - Note Progress Note: chart reviewed consult in chart 75 yr old with Diverticular Bleed/ aspiration pneumonitis At this point bleeding remains well controlled with no further evidence of bleeding will remain on stand by in the even of recurrent bleeding
[2015-06-28] MEDS: SODIUM CHLORIDE 1,000 ML IV SCH (22:14)
[2015-06-28] MEDS: CHLORHEXIDINE GLUCONATE 4% CLEANSER FOR DECOLONIZATION TP SCH (22:15)
[2015-06-28] MEDS: PANTOPRAZOLE SODIUM 40 MG in SODIUM CHLORIDE 100 ML IVPB SCH (22:16)
[2015-06-29 00:22] LABS: BASOPHIL 0.7 % (0-2.0); EOSINOPHIL 2.8 % (0-4.5); MCHC 33.3 g/dl (32.0-35.9); MEAN CELL VOLUME 87.3 fl (80-96); MEAN PLT VOLUME 8.9 fl (7.5-11.1); NEUTROPHILS 71.7 % (42.8-82.8); PLATELET COUNT 108 K/MM3 (134-434); RDW 15.3 % (11.9-15.9); WHITE BLOOD COUNT 15.1 K/mm3 (4.0-10.0)
[2015-06-29] MEDS: INSULIN SLIDING SCALE (NOVOLOG) 1 VIAL SQ SCH ×4 (01:56→20:26)
[2015-06-29 07:31] LABS: BASOPHIL 0.4 % (0-2.0); EOSINOPHIL 1.2 % (0-4.5); MCH 29.7 pg (25.7-33.7); MCHC 33.9 g/dl (32.0-35.9); MEAN CELL VOLUME 87.5 fl (80-96); MEAN PLT VOLUME 7.7 fl (7.5-11.1); NEUTROPHILS 84.6 % (42.8-82.8); PLATELET COUNT 116 K/MM3 (134-434); RDW 14.5 % (11.9-15.9); WHITE BLOOD COUNT 14.3 K/mm3 (4.0-10.0)
[2015-06-29 07:45] LABS: INR 1.4 (0.86-1.14); PROTHROMBIN TIME (PATIENT) 14.8 SEC (9.5-11.7)
[2015-06-29 07:46] LABS: ACTIVATED PTT 25.9 SECONDS (23.5-38.3)
[2015-06-29 08:08] LABS: ALBUMIN 2.1 g/dl (3.5-5.0); BILIRUBIN,TOTAL 0.3 mg/dL (0.2-1.0); CALCIUM 7.1 mg/dL (8.5-10.1); MAGNESIUM 2.2 mg/dL (1.8-2.4); PHOSPHOROUS 3.2 mg/dL (2.5-4.9)
--- NOTE | 2015-06-29 08:40 | PN ---
Progress Note (short form) - Note Progress Note: PULMONARY/CCM Pt seen and examined in the ICU. Continues to bleed. Has received 11 units PRBC , 4 units FFP, 4 units platelets since admission. Remains intubated, sedated. Last Vital Signs Temp Pulse Resp BP Pulse Ox 98.7 F 103 H 19 134/60 97 06/29/15 06:00 06/29/15 06:00 06/29/15 07:08 06/29/15 06:00 06/28/15 22:10 Intake & Output 06/26/15 06/27/15 06/28/15 06/29/15 23:59 23:59 23:59 23:59 Intake Total 4994 3568 2706 Output Total 500 1100 350 Balance 4494 3608 2356 Weight 175 lb 168 lb 6.4 oz 175 lb 8 oz 177 lb 6 oz Gen: intubated, sedated Heart: tachycardic, regular Lung: decreased breath sounds at the bases Abd: soft, nontender Ext: no edema CBC, BMP 06/29/15 07:15 06/29/15 07:15 CXR: LLL infiltrate Active Medications Acetaminophen (Tylenol -) 650 mg PO Q6H PRN PRN Reason: FEVER OR PAIN Chlorhexidine Gluconate (Hibiclens For Decolonization -) 1 applic TP HS [facility] Last Admin: 06/28/15 22:15 Dose: 1 applic Fentanyl (Sublimaze Injection -) 50 mcg IVPUSH [id number] PRN PRN Reason: PAIN Stop: 06/30/15 20:03 Propofol (Diprivan -) 100 mls @ 2.292 mls/hr IVPB TITR [facility]U; 5 MCG/KG/MIN PRN Reason: Protocol Last Admin: 06/28/15 22:14 Dose: 13.749 mls/hr Sodium Chloride (Normal Saline -) 1,000 mls @ 125 mls/hr IV ASDIR [facility] Last Admin: 06/28/15 22:14 Dose: 125 mls/hr Ceftriaxone Sodium 2 gm/ (Dextrose) 100 mls @ 200 mls/hr IVPB DAILY [facility] Last Admin: 06/28/15 12:26 Dose: 200 mls/hr Pantoprazole Sodium 40 mg/ (Sodium Chloride) 100 mls @ 200 mls/hr IVPB BID [facility] Last Admin: 06/28/15 22:16 Dose: 200 mls/hr Insulin Aspart (Novolog Flexpen Sliding Scale -) 0 units SQ Q6HPO [facility] PRN Reason: Protocol Last Admin: 06/29/15 07:56 Dose: Not Given Metoprolol Tartrate (Lopressor -) 25 mg PO DAILY [facility] Last Admin: 06/28/15 10:00 Dose: Not Given Mupirocin (Bactroban Ointment (For Decolonization) -) 1 applic NS BID [facility] Stop: 07/02/15 21:59 Last Admin: 06/28/15 22:15 Dose: 1 applic Ondansetron HCl (Zofran Injection -) 4 mg IVPB Q6H PRN PRN Reason: NAUSEA A/P Acute Lower Diverticular GI Bleed Acute Blood Loss Anemia Acute Respiratory Failure Pneumonia likely aspiration HTN DM CKD - monitor CBC, coags - transfuse as needed - to OR for left hemicolectomy - protonix - continue isotonic IVF, will change to hypotonics when stable - replete lytes - IV antibiotics - f/u cultures - NPO - ensure large bore peripheral access - DVT prophylaxis - continue ICU monitoring
--- NOTE | 2015-06-29 10:04 | EKG ---
Test Reason : Blood Pressure : / mmHG Vent. Rate : 080 BPM Atrial Rate : 080 BPM P-R Int : 162 ms QRS Dur : 094 ms QT Int : 426 ms P-R-T Axes : 049 -04 059 degrees QTc Int : 491 ms NORMAL SINUS RHYTHM WITH SINUS ARRHYTHMIA LEFT VENTRICULAR HYPERTROPHY WITH REPOLARIZATION ABNORMALITY PROLONGED QT ABNORMAL ECG WHEN COMPARED WITH ECG OF 26-JUN-2015 22:13, NO SIGNIFICANT CHANGE WAS FOUND Confirmed by LEIF HERRERA, MONI ([id number]) on 06/29/2015 10:04:35 AM Referred By: AI GARZA DR Overread By: MONI YADAV MD
--- NOTE | 2015-06-29 10:11 | PN ---
Progress Note (short form) - Note Progress Note: Subjective: intubated . per RN, had bleeding perrectum last night , received 3 RBC, 2 FFPs and 2 Plt . n o further bleed. Objective: Last Vital Signs Temp Pulse Resp BP Pulse Ox 98.2 F 106 H 17 116/48 97 06/29/15 08:00 06/29/15 08:00 06/29/15 08:00 06/29/15 08:00 06/28/15 22:10 I&O: Intake & Output 06/26/15 06/27/15 06/28/15 06/29/15 23:59 23:59 23:59 23:59 Intake Total 4994 3568 2706 Output Total 500 1100 350 Balance 4494 2468 2356 Weight 175 lb 168 lb 6.4 oz 175 lb 8 oz 177 lb 6 oz Physical Exam: NAD , intubated, sedated . CV: RRR, tachy 100-105 . lung s: CTAB ext : no edema on legs . abd : soft, NT, ND , nl BS Labs: Laboratory Results - last 24 hr 06/26/15 06/28/15 06/28/15 21:50 06:27 09:35 WBC 22.8 H RBC 3.04 L Hgb 9.0 L D Hct 26.1 L MCV 85.8 MCHC 34.5 RDW 14.3 Plt Count 129 L MPV 8.4 Neutrophils % 83.0 H D Lymphocytes % 6.0 L D Monocytes % 3.0 L Eosinophils % 0.0 D Basophils % 2.0 Band Neutrophils 6.0 Differential Comment Manual diff done Platelet Estimate Slt decreased Platelet Comment No clotting detected INR 1.36 H PTT (Actin FS) Sodium 147 H Potassium 3.9 Chloride 115 H Carbon Dioxide 25 Anion Gap 7 L BUN 25 H D Creatinine 2.3 H D Creat Clearance w eGFR 28.01 POC Glucometer [phone] Random Glucose 188 H D Calcium 7.9 L Phosphorus 3.5 Magnesium 2.3 D Total Bilirubin 1.0 D AST 13 L D ALT 21 D Alkaline Phosphatase 44 L D Creatine Kinase 62 Troponin I 0.11 D Total Protein 4.6 L D Albumin 2.4 L D Urine Color Urine Appearance Urine pH Ur Specific Hitch[place] Urine Protein Urine Glucose (UA) Urine Ketones Urine Blood Urine Nitrite Urine Bilirubin Urine Urobilinogen Ur Leukocyte Esterase Blood Type O POSITIVE Antibody Screen Negative Crossmatch See Detail Crossmatch IS Only See Detail Spec Expiration Date 06/28/15 06/28/15 06/28/15 10:00 12:52 17:42 WBC RBC Hgb Hct MCV MCHC RDW Plt Count MPV Neutrophils % Lymphocytes % Monocytes % Eosinophils % Basophils % Band Neutrophils Differential Comment Platelet Estimate Platelet Comment INR PTT (Actin FS) Sodium Potassium Chloride Carbon Dioxide Anion Gap BUN Creatinine Creat Clearance w eGFR POC Glucometer [phone] Random Glucose Calcium Phosphorus Magnesium Total Bilirubin AST ALT Alkaline Phosphatase Creatine Kinase Troponin I Total Protein Albumin Urine Color Yellow Urine Appearance Slcloudy Urine pH 5.0 Ur Specific Hitch[place] 1.026 Urine Protein Negative Urine Glucose (UA) Negative Urine Ketones Negative Urine Blood Negative Urine Nitrite Negative Urine Bilirubin Negative Urine Urobilinogen Negative Ur Leukocyte Esterase Negative Blood Type Antibody Screen Crossmatch Crossmatch IS Only Spec Expiration Date 06/29/15 06/29/15 00:00 07:15 WBC 15.1 H D 14.3 H RBC 2.27 L D 2.45 L Hgb 6.6 L* D 7.3 L D Hct 19.8 L D 21.5 L MCV 87.3 87.5 MCHC 33.3 33.9 RDW 15.3 14.5 Plt Count 108 L 116 L MPV 8.9 7.7 D Neutrophils % 71.7 84.6 H Lymphocytes % 18.0 D 8.2 D Monocytes % 6.8 D 5.6 Eosinophils % 2.8 D 1.2 Basophils % 0.7 0.4 Band Neutrophils Differential Comment Platelet Estimate Platelet Comment INR 1.40 H PTT (Actin FS) 25.9 Sodium 149 H Potassium 4.0 Chloride 118 H Carbon Dioxide 23 Anion Gap 8 BUN 28 H Creatinine 2.0 H Creat Clearance w eGFR 32.92 POC Glucometer Random Glucose 202 H Calcium 7.1 L Phosphorus 3.2 Magnesium 2.2 Total Bilirubin 0.3 D AST 12 L ALT 14 D Alkaline Phosphatase 36 L Creatine Kinase Troponin I Total Protein 4.0 L Albumin 2.1 L Urine Color Urine Appearance Urine pH Ur Specific [place] Urine Protein Urine Glucose (UA) Urine Ketones Urine Blood Urine Nitrite Urine Bilirubin Urine Urobilinogen Ur Leukocyte Esterase Blood Type Antibody Screen Crossmatch Crossmatch IS Only Spec Expiration Date Current Medications Generic Name Dose Route Start Last Admin Trade Name Freq PRN Reason Stop Dose Admin Acetaminophen 650 mg 06/27/15 20:52 Tylenol - PO Q6H PRN FEVER OR PAIN Chlorhexidine Gluconate 1 applic 06/27/15 22:00 06/28/15 22:15 Hibiclens For Decolonization - TP 1 applic HS KWAKU Administration Fentanyl 50 mcg 06/27/15 20:02 Sublimaze Injection - IVPUSH 06/30/15 20:03 [id number] PRN PAIN Propofol 100 mls @ 2.292 mls/hr 06/27/15 20:00 06/28/15 22:14 Diprivan - IVPB 13.749 mls/hr TITR KWAKU Administration Protocol 5 MCG/KG/MIN Sodium Chloride 1,000 mls @ 125 mls/hr 06/27/15 20:52 06/28/15 22:14 Normal Saline - IV 125 mls/hr ASDIR KWAKU Administration Ceftriaxone Sodium 2 gm/ 100 mls @ 200 mls/hr 06/28/15 10:30 06/28/15 12:26 Dextrose IVPB 200 mls/hr DAILY KWAKU Administration Pantoprazole Sodium 40 mg/ 100 mls @ 200 mls/hr 06/28/15 22:00 06/28/15 22:16 Sodium Chloride IVPB 200 mls/hr BID KWAKU Administration Metronidazole 100 mls @ 100 mls/hr 06/29/15 18:00 Flagyl 500mg Premixed Ivpb - IVPB Q8H-IV KWAKU Insulin Aspart 0 units 06/28/15 00:00 06/29/15 07:56 Novolog Flexpen Sliding Scale - SQ Not Given Q6HPO [facility] Protocol Metoprolol Tartrate 25 mg 06/28/15 10:00 06/28/15 10:00 Lopressor - PO Not Given DAILY KWAKU Mupirocin 1 applic 06/27/15 22:00 06/28/15 22:15 Bactroban Ointment (For Decolonization) - NS 07/02/15 21:59 1 applic BID KWAKU Administration Ondansetron HCl 4 mg 06/27/15 20:52 Zofran Injection - IVPB Q6H PRN NAUSEA Imaging: cxray reviewed. Assessment/Plan: This is a 75yo M with PMHx HTN, DM and inguinal hernia now presenting with dark tarry stool and BRBPR with epidose of syncope 1- Lower GI bleed :s/p colonoscopy on 06/27 . cont to bleed over night , now stopped , Hb dropped, still 7.3 after 3 units of RBC. - getting another unit of rRBC, will be transfused another one. - repeat Hb after transfusion - for hemicolectomy today . - cont PPI - hold BB in the setting of GI bleed 2- leukocytosis : due to suspected LLL asp PNA , - intubated now - cont CtX, appreciate ID REcs - add flagyl to cover Anaerobs as aspiration is suspected - plans fro extubation after sx 3- acute blood loss anemia : as above 4- syncope : probably due to GI bleed and hypotension cont IVF 5- hypernatremia : due to dehydration and free water loss . cont NS ( hypotonic compared to plasma ) , repeat this afternoon 6- DAVID : due to pre-renal azotemia , can't r/o ATN monitor 7-DM : SSI q 6 hrs DVT PX : SCds d/w ICU staff -NISS with fsbs q6 -hold oral hypoglycemics while npo Ingunial hernia- reducible -f/u as outpatient for elective surgery dvt/gi prophylaxis -scds, no anticoagulation secondary gib -ppi drip
[2015-06-29] MEDS: METOPROLOL TARTRATE 25 MG TABLET (FP) PO SCH (11:52)
--- NOTE | 2015-06-29 12:08 | PN ---
Progress Note, Physician History of Present Illness: Sedated on ventilator Recurrent rectal bleeding past 24h requiring transfusion of PRBCs Low grade temps WBC improved - Current Medication List Current Medications: Active Medications Acetaminophen (Tylenol -) 650 mg PO Q6H PRN PRN Reason: FEVER OR PAIN Chlorhexidine Gluconate (Hibiclens For Decolonization -) 1 applic TP HS KWAKU Last Admin: 06/28/15 22:15 Dose: 1 applic Fentanyl (Sublimaze Injection -) 50 mcg IVPUSH [id number] PRN PRN Reason: PAIN Stop: 06/30/15 20:03 Propofol (Diprivan -) 100 mls @ 2.292 mls/hr IVPB TITR KWAKU; 5 MCG/KG/MIN PRN Reason: Protocol Last Admin: 06/28/15 22:14 Dose: 13.749 mls/hr Sodium Chloride (Normal Saline -) 1,000 mls @ 125 mls/hr IV ASDIR KWAKU Last Admin: 06/28/15 22:14 Dose: 125 mls/hr Ceftriaxone Sodium 2 gm/ (Dextrose) 100 mls @ 200 mls/hr IVPB DAILY [facility] Last Admin: 06/28/15 12:26 Dose: 200 mls/hr Pantoprazole Sodium 40 mg/ (Sodium Chloride) 100 mls @ 200 mls/hr IVPB BID KWAKU Last Admin: 06/28/15 22:16 Dose: 200 mls/hr Metronidazole (Flagyl 500mg Premixed Ivpb -) 100 mls @ 100 mls/hr IVPB Q8H-IV KWAKU Insulin Aspart (Novolog Flexpen Sliding Scale -) 0 units SQ Q6HPO KWAKU PRN Reason: Protocol Last Admin: 06/29/15 07:56 Dose: Not Given Mupirocin (Bactroban Ointment (For Decolonization) -) 1 applic NS BID KWAKU Stop: 07/02/15 21:59 Last Admin: 06/28/15 22:15 Dose: 1 applic Ondansetron HCl (Zofran Injection -) 4 mg IVPB Q6H PRN PRN Reason: NAUSEA - Objective Vital Signs: Vital Signs Temperature 98.2 F 06/29/15 10:00 Pulse Rate 105 H 06/29/15 10:00 Respiratory Rate 17 06/29/15 10:00 Blood Pressure 128/55 06/29/15 10:00 O2 Sat by Pulse Oximetry (%) 100 06/29/15 09:43 Constitutional: Yes: No Distress Eyes: Yes: Conjunctiva Clear Cardiovascular: Yes: Regular Rate and Rhythm, S1, S2 Respiratory: Yes: CTA Bilaterally, Mechanically Ventilated Gastrointestinal: Yes: Normal Bowel Sounds, Soft. No: Tenderness Edema: Yes Edema: LLE: 1+, RLE: 1+ Labs: CBC, BMP 06/29/15 07:15 06/29/15 07:15 INR, PTT INR 1.40 (0.86-1.14) H 06/29/15 07:15 Assessment/Plan Probable aspiration pneumonia Lower GI bleed Leukocytosis- improved Azotemia Continue empiric ceftriaxone/ flagyl Ventilatory support
[2015-06-29 13:58] LABS: ARTERIAL BLOOD GAS HCO3 21.8 meq/L (22-26); ARTERIAL BLOOD GAS pH 7.41 (7.35-7.45)
[2015-06-29 14:01] LABS: PT. ON O2? YES
[2015-06-29 14:02] LABS: LPM/O2% 100%; MECH. VENT. Y; TYPE OF O2 MECH VENT; VENT RATE 12; VT/PRESS 500
--- NOTE | 2015-06-29 14:39 | OP ---
Operative Note - Note: Pre-Operative Diagnosis: Gi bleeding Operation: r breann colectomy Findings: diverticulosis Surgeon: Joe Cardoza Anesthesia: General Specimens Removed: r colon Estimated Blood Loss (mls): 100 Blood Volume Replaced (mls): 2 Operative Report Dictated: Yes
--- NOTE | 2015-06-29 14:47 | PN ---
Progress Note (short form) - Note Progress Note: patient developedped severe gi bleeding. Discussed case with daughters at length, risk of surgery discussed at length, agreed to proposed surgery. Case discussed with Dr Dai and Dr May
--- NOTE | 2015-06-29 15:03 | SURG ---
Surgery Trim Mounter Note Trim Mounter: Carmen Hunter PA-C Date of Service: 06/29/15 Diagnosis: diverticular bleeding Procedure: right hemicolectomy I was present for the entirety of the operative procedure. For further detail, please refer to operative report.
[2015-06-29] MEDS: PROPOFOL 100 ML IVPB SCH (15:30)
[2015-06-29] MEDS: HYDROmorphone HCL CARPU-JECT 1 MG/1 ML DISP.SYRIN IVPUSH PRN ×4 (16:08→16:34)
[2015-06-29] MEDS: PANTOPRAZOLE SODIUM 40 MG in SODIUM CHLORIDE 100 ML IVPB SCH ×2 (16:33→22:24)
[2015-06-29] MEDS: CEFTRIAXONE 2 GM in DEXTROSE 5%-WATER - 100 ML IVPB SCH (16:34)
[2015-06-29] MEDS: METRONIDAZOLE 500 MG PREMIXED 100 ML IVPB SCH (19:04)
[2015-06-29 19:08] LABS: BASOPHIL 0.3 % (0-2.0); EOSINOPHIL 1.2 % (0-4.5); MCHC 33.2 g/dl (32.0-35.9); MEAN CELL VOLUME 87.5 fl (80-96); MEAN PLT VOLUME 8.1 fl (7.5-11.1); NEUTROPHILS 84.5 % (42.8-82.8); PLATELET COUNT 87 K/MM3 (134-434); RDW 15.1 % (11.9-15.9); WHITE BLOOD COUNT 14.7 K/mm3 (4.0-10.0)
[2015-06-29 19:32] LABS: CALCIUM 6.9 mg/dL (8.5-10.1); CREATININE 1.5 mg/dL (0.6-1.3)
[2015-06-29] MEDS: MUPIROCIN 2% TOPICAL OINTMENT FOR DECOLONIZATION NS SCH (22:24)
[2015-06-29] MEDS: CHLORHEXIDINE GLUCONATE 4% CLEANSER FOR DECOLONIZATION TP SCH (22:24)
[2015-06-29 22:27] LABS: BASOPHIL 0.1 % (0-2.0); EOSINOPHIL 2.7 % (0-4.5); MCH 29.2 pg (25.7-33.7); MCHC 33.7 g/dl (32.0-35.9); MEAN CELL VOLUME 86.7 fl (80-96); MEAN PLT VOLUME 7.9 fl (7.5-11.1); NEUTROPHILS 83.4 % (42.8-82.8); PLATELET COUNT 89 K/MM3 (134-434); RDW 14.9 % (11.9-15.9); WHITE BLOOD COUNT 15.5 K/mm3 (4.0-10.0)
[2015-06-30] MEDS: INSULIN SLIDING SCALE (NOVOLOG) 1 VIAL SQ SCH ×4 (00:07→18:51)
[2015-06-30] MEDS: METRONIDAZOLE 500 MG PREMIXED 100 ML IVPB SCH ×3 (01:34→17:58)
--- NOTE | 2015-06-30 08:02 | PN ---
Progress Note (short form) - Note Progress Note: ID Day 1 post op Intubated Empiric intrabdominal coverage Ceftriaxone and metronidazole Selected Entries 06/29/15 06/30/15 06/30/15 18:07 06:00 07:24 Temperature 97.7 F 98.4 F Pulse Rate 95 H 84 Respiratory 13 14 Rate Blood Pressure 149/68 166/66 Lung Bilat rhonchi Cor S1 S2 Abd Soft midline op dressing Microbiology 06/28/15 17:30 Sputum - Endotrachea Suction/Ventilator Gram Stain - Final 06/28/15 10:00 Urine For Antigen Detection Legionella Antigen - Final 06/28/15 10:00 Urine For Antigen Detection Streptococcus pneumoniae Antigen (M - Final 06/27/15 20:30 Urine - Urine Schwartz Urine Culture - Final NO GROWTH OBTAINED 06/28/15 09:32 Blood - Peripheral Venous Blood Culture - Preliminary NO GROWTH OBTAINED AFTER 24 HOURS, INCUBATION TO CONTINUE FOR 4 DAYS. 06/28/15 09:32 Blood - Peripheral Venous Blood Culture - Preliminary NO GROWTH OBTAINED AFTER 24 HOURS, INCUBATION TO CONTINUE FOR 4 DAYS. Laboratory Tests 06/29/15 06/29/15 18:30 21:30 WBC 15.5 H Hgb 7.8 L Hct 23.1 L Plt Count 89 L BUN 23 H Creatinine 1.5 H D Assessment Day 1 post op hemicolectomy Respiratory failure ? PNA aspiration Anemia Lower GI bleeding thus surgery Multiply blood transfused Plan Continue antibiotics as ordered Martín HERRERA
--- NOTE | 2015-06-30 08:45 | PN ---
Progress Note (short form) - Note Progress Note: PULMONARY/CCM Pt seen and examined in the ICU. s/p right hemicolectomy. Remains intubated, sedated. Last Vital Signs Temp Pulse Resp BP Pulse Ox 98.4 F 84 14 166/66 100 06/30/15 06:00 06/30/15 06:00 06/30/15 07:24 06/30/15 06:00 06/29/15 21:00 Intake & Output 06/27/15 06/28/15 06/29/15 06/30/15 23:59 23:59 23:59 23:59 Intake Total 4994 3568 5492 1686.4 Output Total 500 1100 1400 400 Balance 4494 2468 4092 1286.4 Weight 168 lb 6.4 oz 175 lb 8 oz 177 lb 6 oz 188 lb 7.924 oz Gen: intubated, sedated Heart: tachycardic, regular Lung: decreased breath sounds at the bases Abd: soft, nontender, dressing dry Ext: no edema CBC, BMP 06/29/15 21:30 06/29/15 18:30 Active Medications Acetaminophen (Tylenol -) 650 mg PO Q6H PRN PRN Reason: FEVER OR PAIN Chlorhexidine Gluconate (Hibiclens For Decolonization -) 1 applic TP HS KWAKU Last Admin: 06/29/15 22:24 Dose: Not Given Hydromorphone HCl (Dilaudid Injection -) 0.5 mg IVPUSH [id number] PRN PRN Reason: PAIN Stop: 07/02/15 15:18 Last Admin: 06/29/15 16:34 Dose: 0.5 mg Metronidazole (Flagyl 500mg Premixed Ivpb -) 100 mls @ 100 mls/hr IVPB Q8H-IV KWAKU Last Admin: 06/30/15 01:34 Dose: 100 mls/hr Propofol (Diprivan -) 100 mls @ 2.292 mls/hr IVPB TITR KWAKU; 5 MCG/KG/MIN PRN Reason: Protocol Last Admin: 06/29/15 15:30 Dose: 0 mls Ceftriaxone Sodium 2 gm/ (Dextrose) 100 mls @ 200 mls/hr IVPB DAILY KWAKU Pantoprazole Sodium 40 mg/ (Sodium Chloride) 100 mls @ 200 mls/hr IVPB BID KWAKU Last Admin: 06/29/15 22:24 Dose: 200 mls/hr Sodium Chloride (Normal Saline -) 1,000 mls @ 125 mls/hr IV ASDIR [facility] Last Admin: 06/29/15 19:11 Dose: 125 mls/hr Insulin Aspart (Novolog Flexpen Sliding Scale -) 0 units SQ Q6HPO KWAKU PRN Reason: Protocol Last Admin: 06/30/15 06:06 Dose: Not Given Morphine Sulfate (Morphine Injection -) 4 mg IVPUSH Q4H PRN PRN Reason: PAIN Mupirocin (Bactroban Ointment (For Decolonization) -) 1 applic NS BID KWAKU Stop: 07/04/15 21:59 Last Admin: 06/29/15 22:24 Dose: 1 applic Ondansetron HCl (Zofran Injection -) 4 mg IVPB Q6H PRN PRN Reason: NAUSEA A/P Acute Lower Diverticular GI Bleed Acute Blood Loss Anemia Acute Respiratory Failure Pneumonia likely aspiration HTN DM CKD - monitor CBC, coags - transfuse as needed - protonix - will change IVF to hypotonic solution - IV antibiotics - f/u cultures - NPO - await return of bowel function - ensure large bore peripheral access - DVT/GI prophylaxis - continue ICU monitoring
[2015-06-30 09:06] LABS: BASOPHIL 0.2 % (0-2.0); EOSINOPHIL 4.2 % (0-4.5); MCH 29.7 pg (25.7-33.7); MCHC 34.2 g/dl (32.0-35.9); MEAN CELL VOLUME 86.8 fl (80-96); PLATELET COUNT 94 K/MM3 (134-434); RDW 15.2 % (11.9-15.9); WHITE BLOOD COUNT 14.3 K/mm3 (4.0-10.0)
[2015-06-30 09:36] LABS: BILIRUBIN,TOTAL 0.4 mg/dL (0.2-1.0); CALCIUM 7.3 mg/dL (8.5-10.1); CREATININE 1.3 mg/dL (0.6-1.3); MAGNESIUM 2.1 mg/dL (1.8-2.4); PHOSPHOROUS 2.5 mg/dL (2.5-4.9); TOT PROT 4.3 g/dl (6.4-8.2)
[2015-06-30] MEDS: PANTOPRAZOLE SODIUM 40 MG in SODIUM CHLORIDE 100 ML IVPB SCH ×2 (09:49→21:17)
[2015-06-30] MEDS: morphine CARPU-JECT 4 MG/1 ML DISP.SYRIN IVPUSH PRN (10:07)
[2015-06-30] MEDS: MUPIROCIN 2% TOPICAL OINTMENT FOR DECOLONIZATION NS SCH ×2 (10:09→21:17)
--- NOTE | 2015-06-30 11:38 | PN ---
Progress Note, Physician Chief Complaint: s/p right hemicolectomy under GA History of Present Illness: Patient came in with lower GI bleed not controlled by endoscopic clipping, went for right hemicolectomy - Current Medication List Current Medications: Active Medications Acetaminophen (Tylenol -) 650 mg PO Q6H PRN PRN Reason: FEVER OR PAIN Chlorhexidine Gluconate (Hibiclens For Decolonization -) 1 applic TP HS [facility] Last Admin: 06/29/15 22:24 Dose: Not Given Hydromorphone HCl (Dilaudid Injection -) 0.5 mg IVPUSH [id number] PRN PRN Reason: PAIN Stop: 07/02/15 15:18 Last Admin: 06/29/15 16:34 Dose: 0.5 mg Metronidazole (Flagyl 500mg Premixed Ivpb -) 100 mls @ 100 mls/hr IVPB Q8H-IV KWAKU Last Admin: 06/30/15 09:43 Dose: 100 mls/hr Propofol (Diprivan -) 100 mls @ 2.292 mls/hr IVPB TITR KWAKU; 5 MCG/KG/MIN PRN Reason: Protocol Last Admin: 06/29/15 15:30 Dose: 0 mls Ceftriaxone Sodium 2 gm/ (Dextrose) 100 mls @ 200 mls/hr IVPB DAILY KWAKU Pantoprazole Sodium 40 mg/ (Sodium Chloride) 100 mls @ 200 mls/hr IVPB BID [facility] Last Admin: 06/30/15 09:49 Dose: 200 mls/hr Potassium Chloride/Dextrose/Sod Cl (D5-1/2ns+20 Meq Kcl -) 1,000 mls @ 75 mls/ hr IV ASDIR [facility] Last Admin: 06/30/15 09:39 Dose: 75 mls/hr Insulin Aspart (Novolog Flexpen Sliding Scale -) 0 units SQ Q6HPO KWAKU PRN Reason: Protocol Last Admin: 06/30/15 06:06 Dose: Not Given Morphine Sulfate (Morphine Injection -) 4 mg IVPUSH Q4H PRN PRN Reason: PAIN Last Admin: 06/30/15 10:07 Dose: 4 mg Mupirocin (Bactroban Ointment (For Decolonization) -) 1 applic NS BID [facility] Stop: 07/04/15 21:59 Last Admin: 06/30/15 10:09 Dose: 1 applic Ondansetron HCl (Zofran Injection -) 4 mg IVPB Q6H PRN PRN Reason: NAUSEA - Objective Vital Signs: Vital Signs Temperature 98.4 F 06/30/15 06:00 Pulse Rate 84 06/30/15 06:00 Respiratory Rate 17 06/30/15 09:00 Blood Pressure 166/66 06/30/15 06:00 O2 Sat by Pulse Oximetry (%) 100 06/30/15 09:00 Constitutional: Yes: Calm Cardiovascular: Yes: Tachycardia Respiratory: Yes: Intubated, Mechanically Ventilated Gastrointestinal: Yes: Soft (sedated) Labs: CBC, BMP 06/30/15 08:25 06/30/15 08:25 INR, PTT INR 1.40 (0.86-1.14) H 06/29/15 07:15 Assessment/Plan Patient is HD stable after surgery post op day 1, hypertensive to the 150's. Patient was on a sedation vacation when seen in the AM. Patient does not require pain management at this time. If the patient needs a TELECOMMUNICATION TOWER TECHNICIAN after extubation, please consult the dept of anesthesia otherwise, we sign off.
[2015-06-30] MEDS: CEFTRIAXONE 2 GM in DEXTROSE 5%-WATER - 100 ML IVPB SCH (12:20)
--- NOTE | 2015-06-30 13:19 | PN ---
Progress Note (short form) - Note Progress Note: Subjective: intubated .no events over night Objective: Last Vital Signs Temp Pulse Resp BP Pulse Ox 97.3 F L 74 17 186/79 100 06/30/15 08:00 06/30/15 10:00 06/30/15 10:00 06/30/15 10:00 06/30/15 09:00 I&O: Intake & Output 06/27/15 06/28/15 06/29/15 06/30/15 23:59 23:59 23:59 23:59 Intake Total 4994 3568 5492 1966.4 Output Total 500 1100 1400 400 Balance 4494 2468 4092 1566.4 Weight 168 lb 6.4 oz 175 lb 8 oz 177 lb 6 oz 188 lb 7.924 oz Physical Exam: NAD , intubated, non responsive CV: RRR, lungs: CTAB ext : no edema on legs . abd : soft, NT, ND , nl BS Labs: Laboratory Results - last 24 hr 06/26/15 06/29/15 06/29/15 21:50 13:57 18:30 WBC 14.7 H RBC 2.75 L Hgb 8.0 L Hct 24.0 L MCV 87.5 MCHC 33.2 RDW 15.1 Plt Count 87 L D MPV 8.1 Neutrophils % 84.5 H Lymphocytes % 8.0 Monocytes % 6.0 Eosinophils % 1.2 Basophils % 0.3 Puncture Site Md puncture ABG pH 7.41 ABG pCO2 at Pt Temp 35.4 ABG pO2 at Pt Temp 338.0 H* ABG HCO3 21.8 L ABG O2 Sat (Measured) 100.0 H* ABG O2 Content 10.4 L ABG Base Excess -2.0 Izaiah Test Not applicable O2 Delivery Device Mech vent Oxygen Flow Rate 100% Vent Mode A/c Vent Rate 12 Mechanical Rate Y PEEP 5.0 Pressure Support Vent 500 Sodium 149 H Potassium 3.9 Chloride 119 H Carbon Dioxide 24 Anion Gap 6 L BUN 23 H Creatinine 1.5 H D Creat Clearance w eGFR POC Glucometer Random Glucose 197 H Calcium 6.9 L* Phosphorus Magnesium Total Bilirubin AST ALT Alkaline Phosphatase Total Protein Albumin Blood Type O POSITIVE Antibody Screen Negative Crossmatch See Detail Crossmatch IS Only See Detail Spec Expiration Date 06/29/15 06/29/15 06/30/15 21:30 23:27 05:35 WBC 15.5 H RBC 2.66 L Hgb 7.8 L Hct 23.1 L MCV 86.7 MCHC 33.7 RDW 14.9 Plt Count 89 L MPV 7.9 Neutrophils % 83.4 H Lymphocytes % 8.6 Monocytes % 5.2 Eosinophils % 2.7 D Basophils % 0.1 Puncture Site ABG pH ABG pCO2 at Pt Temp ABG pO2 at Pt Temp ABG HCO3 ABG O2 Sat (Measured) ABG O2 Content ABG Base Excess Izaiah Test O2 Delivery Device Oxygen Flow Rate Vent Mode Vent Rate Mechanical Rate PEEP Pressure Support Vent Sodium Potassium Chloride Carbon Dioxide Anion Gap BUN Creatinine Creat Clearance w eGFR POC Glucometer 209.45010 198.54236 Random Glucose Calcium Phosphorus Magnesium Total Bilirubin AST ALT Alkaline Phosphatase Total Protein Albumin Blood Type Antibody Screen Crossmatch Crossmatch IS Only Spec Expiration Date 06/30/15 06/30/15 08:25 12:18 WBC 14.3 H RBC 2.52 L Hgb 7.5 L Hct 21.9 L MCV 86.8 MCHC 34.2 RDW 15.2 Plt Count 94 L MPV 8.0 Neutrophils % 82.0 Lymphocytes % 8.5 Monocytes % 5.1 Eosinophils % 4.2 Basophils % 0.2 Puncture Site ABG pH ABG pCO2 at Pt Temp ABG pO2 at Pt Temp ABG HCO3 ABG O2 Sat (Measured) ABG O2 Content ABG Base Excess Izaiah Test O2 Delivery Device Oxygen Flow Rate Vent Mode Vent Rate Mechanical Rate PEEP Pressure Support Vent Sodium 150 H Potassium 3.9 Chloride 119 H Carbon Dioxide 24 Anion Gap 7 L BUN 18 D Creatinine 1.3 Creat Clearance w eGFR 54.11 POC Glucometer 211.27060 Random Glucose 171 H Calcium 7.3 L Phosphorus 2.5 D Magnesium 2.1 Total Bilirubin 0.4 D AST 13 L ALT 14 Alkaline Phosphatase 40 L Total Protein 4.3 L Albumin 2.0 L Blood Type Antibody Screen Crossmatch Crossmatch IS Only Spec Expiration Date Imaging cxray reviewed. Assessment/Plan: This is a 75yo M with PMHx HTN, DM and inguinal hernia now presenting with dark tarry stool and BRBPR with epidose of syncope 1- Lower GI bleed :post op day 1 s/p R hemicolectomy - Hb 7.5 . transfuse 2 units of RBC - repeat Hb at 7 pm . - cont PPI BID 2- lacute resp failure : due to possible aspiration PNA , - intubated now - cont CtX, and flagyl - cxray reviewed. - off sedation for a trial of extubation 3- acute blood loss anemia : as above 4- HTN: resume BB as bleeding stopped 5- hypernatremia : due to dehydration and free water loss . change the IVF to 1/2 NS due to hyperglycemia in the setting of DM monitor NA level closely to ensure appropriate drop in Na level ( < 0.5 meq/dl/ hr ) 6- DAVID : due to pre-renal azotemia , can't r/o ATN monitor 7-DM : SSI q 6 hrs change IVF DVT PX : SCds d/w ICU dr. Jordan
[2015-06-30] MEDS: SODIUM CHLORIDE 0.45%/POT 1,000 ML IV SCH (15:27)
--- NOTE | 2015-06-30 17:09 | PN ---
GI Progress Note Subjective: pt noted to be unresponsive off propofol. no active bleeding, no rectal bleeding - Objective Vital Signs: Vital Signs Temperature 98.9 F 06/30/15 12:00 Pulse Rate 81 06/30/15 16:00 Respiratory Rate 14 06/30/15 16:37 Blood Pressure 171/75 06/30/15 16:00 O2 Sat by Pulse Oximetry (%) 100 06/30/15 10:00 Constitutional: Other (on ventilator) Eyes: Yes: Conjunctiva Clear Neck: Yes: Supple Cardiovascular: Yes: Regular Rate and Rhythm ...Palpate: Yes: Soft. No: Firm/Rigid, Guarding, Hepatomegaly, Mass, Splenomegaly, Tenderness Labs: CBC, BMP 06/30/15 08:25 INR, PTT INR 1.40 (0.86-1.14) H 06/29/15 07:15 Problem List - Problems (1) Lower GI bleed Assessment/Plan: Diverticular bleeding--resolved R> consider neurology consult, Cardiology consult no active bleeding,advance diet as per Surgery, reconsult as necessary
[2015-06-30] MEDS: PROPOFOL 100 ML IVPB SCH (17:57)
[2015-06-30] MEDS: LABETALOL HCL 5 MG/1 ML (100MG/20 ML VIAL) IVPUSH PRN (20:30)
[2015-06-30] MEDS: CHLORHEXIDINE GLUCONATE 4% CLEANSER FOR DECOLONIZATION TP SCH (21:17)
[2015-07-01] MEDS: METRONIDAZOLE 500 MG PREMIXED 100 ML IVPB SCH ×3 (00:59→18:22)
[2015-07-01 03:39] LABS: MCH 29.5 pg (25.7-33.7); MEAN CELL VOLUME 89.2 fl (80-96); MEAN PLT VOLUME 9.5 fl (7.5-11.1); PLATELET COUNT 110 K/MM3 (134-434); RDW 15.4 % (11.9-15.9); WHITE BLOOD COUNT 16.6 K/mm3 (4.0-10.0)
[2015-07-01] MEDS: INSULIN SLIDING SCALE (NOVOLOG) 1 VIAL SQ SCH ×4 (06:28→18:49)
[2015-07-01 06:57] LABS: BASOPHIL 0.3 % (0-2.0); EOSINOPHIL 3.6 % (0-4.5); MCH 30.2 pg (25.7-33.7); MCHC 34.4 g/dl (32.0-35.9); MEAN CELL VOLUME 87.7 fl (80-96); MEAN PLT VOLUME 8.5 fl (7.5-11.1); NEUTROPHILS 79.4 % (42.8-82.8); PLATELET COUNT 105 K/MM3 (134-434); RDW 15.2 % (11.9-15.9); WHITE BLOOD COUNT 16.7 K/mm3 (4.0-10.0)
[2015-07-01 07:28] LABS: INR 1.34 (0.86-1.14); PROTHROMBIN TIME (PATIENT) 14.2 SEC (9.5-11.7)
--- NOTE | 2015-07-01 07:28 | PN ---
Progress Note, Physician Chief Complaint: ID Remains intubated Concern is he that he is unresponsive 2 units PRBC given overnight - Current Medication List Current Medications: Active Medications Acetaminophen (Tylenol -) 650 mg PO Q6H PRN PRN Reason: FEVER OR PAIN Chlorhexidine Gluconate (Hibiclens For Decolonization -) 1 applic TP HS [facility] Last Admin: 06/30/15 21:17 Dose: 1 applic Hydromorphone HCl (Dilaudid Injection -) 0.5 mg IVPUSH [id number] PRN PRN Reason: PAIN Stop: 07/02/15 15:18 Last Admin: 06/29/15 16:34 Dose: 0.5 mg Metronidazole (Flagyl 500mg Premixed Ivpb -) 100 mls @ 100 mls/hr IVPB Q8H-IV [facility] Last Admin: 07/01/15 00:59 Dose: 100 mls/hr Propofol (Diprivan -) 100 mls @ 2.292 mls/hr IVPB TITR [facility]; 5 MCG/KG/MIN PRN Reason: Protocol Last Admin: 06/30/15 17:57 Dose: Not Given Ceftriaxone Sodium 2 gm/ (Dextrose) 100 mls @ 200 mls/hr IVPB DAILY [facility] Last Admin: 06/30/15 12:20 Dose: 200 mls/hr Pantoprazole Sodium 40 mg/ (Sodium Chloride) 100 mls @ 200 mls/hr IVPB BID [facility] Last Admin: 06/30/15 21:17 Dose: 200 mls/hr Potassium Chloride/Sodium Chloride (1/2ns+20meq Kcl) 1,000 mls @ 75 mls/hr IV ASDIR [facility] Last Admin: 06/30/15 15:27 Dose: 75 mls/hr Insulin Aspart (Novolog Flexpen Sliding Scale -) 0 units SQ Q6HPO [facility] PRN Reason: Protocol Last Admin: 07/01/15 06:28 Dose: Not Given Labetalol HCl (Normodyne Injection -) 10 mg IVPUSH Q6H PRN PRN Reason: HYPERTENSION Last Admin: 06/30/15 20:30 Dose: 10 mg Morphine Sulfate (Morphine Injection -) 4 mg IVPUSH Q4H PRN PRN Reason: PAIN Last Admin: 06/30/15 10:07 Dose: 4 mg Mupirocin (Bactroban Ointment (For Decolonization) -) 1 applic NS BID [facility] Stop: 07/04/15 21:59 Last Admin: 06/30/15 21:17 Dose: 1 applic Ondansetron HCl (Zofran Injection -) 4 mg IVPB Q6H PRN PRN Reason: NAUSEA - Objective Vital Signs: Vital Signs Temperature 98.1 F 07/01/15 02:00 Pulse Rate 96 H 07/01/15 06:00 Respiratory Rate 15 07/01/15 07:01 Blood Pressure 185/84 07/01/15 06:00 O2 Sat by Pulse Oximetry (%) 99 06/30/15 22:35 Constitutional: Yes: Other (Unresponsive) Cardiovascular: Yes: Regular Rate and Rhythm, S1, S2 Respiratory: Yes: WNL, Regular, CTA Bilaterally Gastrointestinal: Yes: Soft, Other (surgical incicsion) Edema: No Labs: CBC, BMP 07/01/15 05:30 INR, PTT INR 1.40 (0.86-1.14) H 06/29/15 07:15 Assessment/Plan Microbiology 06/28/15 17:30 Sputum - Endotrachea Suction/Ventilator Gram Stain - Final 06/27/15 20:30 Urine - Urine Schwartz Urine Culture - Final NO GROWTH OBTAINED 06/28/15 17:30 Sputum - Endotrachea Suction/Ventilator Sputum Culture - Preliminary NORMAL RESPIRATORY ARMAND 06/28/15 09:32 Blood - Peripheral Venous Blood Culture - Preliminary NO GROWTH OBTAINED AFTER 48 HOURS, INCUBATION TO CONTINUE FOR 3 DAYS. 06/28/15 09:32 Blood - Peripheral Venous Blood Culture - Preliminary NO GROWTH OBTAINED AFTER 48 HOURS, INCUBATION TO CONTINUE FOR 3 DAYS. Laboratory Tests 07/01/15 05:30 Hgb 8.9 L Hct 25.8 L Plt Count 105 L Assessment Day 2 hemicolectomy for GI bleeding Gi bleed multiply transfused 2units last night PNA probable aspiration Respiratory failure Unresponsive mental status( previous Ct head neg) Plan Continue Ceftriaxone and metronidazole started 06/28 Martín HERRERA
[2015-07-01 07:30] LABS: ACTIVATED PTT 27.8 SECONDS (23.5-38.3); ALBUMIN 2.1 g/dl (3.5-5.0); ALK PHOS 44 U/L (50-136); ANION GAP 6 (8-16); BILIRUBIN,TOTAL 0.6 mg/dL (0.2-1.0); CALCIUM 7.8 mg/dL (8.5-10.1); CO2 26 mmol/L (21-32); CREATININE 1.1 mg/dL (0.6-1.3); GLUCOSE,RANDOM 153 mg/dL (74-106); MAGNESIUM 2.1 mg/dL (1.8-2.4); PHOSPHOROUS 2.1 mg/dL (2.5-4.9); SGOT/AST 12 U/L (15-37); SGPT/ALT 14 U/L (12-78); TOT PROT 4.6 g/dl (6.4-8.2)
[2015-07-01] MEDS: LABETALOL HCL 5 MG/1 ML (100MG/20 ML VIAL) IVPUSH PRN (08:08)
--- NOTE | 2015-07-01 09:07 | PN ---
Progress Note (short form) - Note Progress Note: Progress Note PULM/CCM Patient Name: CRUZ LEE Date of : 1940 Patient Status: Inpatient Attending Provider: Yolis Arthur Patient seen and examined in the ICU. Intubated on AC Mode of vent. Poorly responsive to noxious stimuli. Apparently has been off sedation since yesterday. Intake & Output 06/28/15 06/29/15 06/30/15 07/01/15 23:59 23:59 23:59 23:59 Intake Total 3568 5492 2766.4 412.5 Output Total 1100 1400 1600 600 Balance 2468 4092 1166.4 -187.5 Weight 175 lb 8 oz 177 lb 6 oz 188 lb 7.924 oz 186 lb 4.65 oz Last Vital Signs Temp Pulse Resp BP Pulse Ox 98.1 F 96 H 15 185/84 99 07/01/15 02:00 07/01/15 06:00 07/01/15 07:01 07/01/15 06:00 06/30/15 22:35 Active Medications Acetaminophen (Tylenol -) 650 mg PO Q6H PRN PRN Reason: FEVER OR PAIN Chlorhexidine Gluconate (Hibiclens For Decolonization -) 1 applic TP HS [facility] Last Admin: 06/30/15 21:17 Dose: 1 applic Metronidazole (Flagyl 500mg Premixed Ivpb -) 100 mls @ 100 mls/hr IVPB Q8H-IV [facility] Last Admin: 07/01/15 00:59 Dose: 100 mls/hr Propofol (Diprivan -) 100 mls @ 2.292 mls/hr IVPB TITR [facility]; 5 MCG/KG/MIN PRN Reason: Protocol Last Admin: 06/30/15 17:57 Dose: Not Given Ceftriaxone Sodium 2 gm/ (Dextrose) 100 mls @ 200 mls/hr IVPB DAILY [facility] Last Admin: 06/30/15 12:20 Dose: 200 mls/hr Pantoprazole Sodium 40 mg/ (Sodium Chloride) 100 mls @ 200 mls/hr IVPB BID [facility] Last Admin: 06/30/15 21:17 Dose: 200 mls/hr Potassium Chloride/Sodium Chloride (1/2ns+20meq Kcl) 1,000 mls @ 75 mls/hr IV ASDIR [facility] Last Admin: 06/30/15 15:27 Dose: 75 mls/hr Insulin Aspart (Novolog Flexpen Sliding Scale -) 0 units SQ Q6HPO [facility] PRN Reason: Protocol Last Admin: 07/01/15 06:28 Dose: Not Given Metoprolol Tartrate (Lopressor Injection -) 5 mg IVPUSH Q6H [facility] Morphine Sulfate (Morphine Injection -) 4 mg IVPUSH Q4H PRN PRN Reason: PAIN Last Admin: 06/30/15 10:07 Dose: 4 mg Mupirocin (Bactroban Ointment (For Decolonization) -) 1 applic NS BID [facility] Stop: 07/04/15 21:59 Last Admin: 06/30/15 21:17 Dose: 1 applic Ondansetron HCl (Zofran Injection -) 4 mg IVPB Q6H PRN PRN Reason: NAUSEA Gen: intubated, poorly repsonsive Heart: S1S2 Lung: decreased breath sounds at the bases Abd: soft, (+) Hypoactive BS, dressing dry Ext: no edema Laboratory Results - last 24 hr 06/26/15 06/30/15 06/30/15 21:50 05:35 08:25 WBC 14.3 H RBC 2.52 L Hgb 7.5 L Hct 21.9 L MCV 86.8 MCHC 34.2 RDW 15.2 Plt Count 94 L MPV 8.0 Neutrophils % 82.0 Lymphocytes % 8.5 Monocytes % 5.1 Eosinophils % 4.2 Basophils % 0.2 INR PTT (Actin FS) Sodium 150 H Potassium 3.9 Chloride 119 H Carbon Dioxide 24 Anion Gap 7 L BUN 18 D Creatinine 1.3 Creat Clearance w eGFR 54.11 POC Glucometer 198.41366 Random Glucose 171 H Calcium 7.3 L Phosphorus 2.5 D Magnesium 2.1 Total Bilirubin 0.4 D AST 13 L ALT 14 Alkaline Phosphatase 40 L Total Protein 4.3 L Albumin 2.0 L Blood Type O POSITIVE Antibody Screen Negative Crossmatch See Detail Crossmatch IS Only See Detail Spec Expiration Date 06/30/15 06/30/15 06/30/15 12:18 15:15 16:30 WBC RBC Hgb Hct MCV MCHC RDW Plt Count MPV Neutrophils % Lymphocytes % Monocytes % Eosinophils % Basophils % INR PTT (Actin FS) Sodium 149 H Potassium Chloride Carbon Dioxide Anion Gap BUN Creatinine Creat Clearance w eGFR POC Glucometer 211.56758 Random Glucose Calcium Phosphorus Magnesium Total Bilirubin AST ALT Alkaline Phosphatase Total Protein Albumin Blood Type O POSITIVE Antibody Screen Negative Crossmatch See Detail Crossmatch IS Only Spec Expiration Date 06/30/15 07/01/15 07/01/15 18:10 00:30 03:00 WBC 16.6 H RBC 3.07 L D Hgb 9.1 L D Hct 27.4 L D MCV 89.2 MCHC 33.0 RDW 15.4 Plt Count 110 L MPV 9.5 D Neutrophils % Lymphocytes % Monocytes % Eosinophils % Basophils % INR PTT (Actin FS) Sodium Potassium Chloride Carbon Dioxide Anion Gap BUN Creatinine Creat Clearance w eGFR POC Glucometer 208.60031 157.59173 Random Glucose Calcium Phosphorus Magnesium Total Bilirubin AST ALT Alkaline Phosphatase Total Protein Albumin Blood Type Antibody Screen Crossmatch Crossmatch IS Only Spec Expiration Date 07/01/15 07/01/15 05:30 05:59 WBC 16.7 H RBC 2.94 L Hgb 8.9 L Hct 25.8 L MCV 87.7 MCHC 34.4 RDW 15.2 Plt Count 105 L MPV 8.5 D Neutrophils % 79.4 Lymphocytes % 9.9 Monocytes % 6.8 Eosinophils % 3.6 Basophils % 0.3 INR 1.34 H PTT (Actin FS) 27.8 Sodium 149 H Potassium 3.4 L Chloride 117 H Carbon Dioxide 26 Anion Gap 6 L BUN 14 D Creatinine 1.1 Creat Clearance w eGFR > 60 POC Glucometer 170.27017 Random Glucose 153 H Calcium 7.8 L Phosphorus 2.1 L Magnesium 2.1 Total Bilirubin 0.6 D AST 12 L ALT 14 Alkaline Phosphatase 44 L Total Protein 4.6 L Albumin 2.1 L Blood Type Antibody Screen Crossmatch Crossmatch IS Only Spec Expiration Date IMP: S/P Right Hemicoletomy due to Acute Lower Diverticular GI Bleed AMS -> etiology to be determined -> (?) Lingering sedation Acute Blood Loss Anemia Acute Respiratory Failure Pneumonia likely aspiration HTN DM CKD PLAN: - CT Head - BP control -> will need to restart BP meds - monitor CBC, coags - transfuse as needed - protonix - IVF - IV antibiotics - Enteral feeds when OK with surgery - DVT/GI prophylaxis Dr Agosto CCTime 35"
[2015-07-01] MEDS: MUPIROCIN 2% TOPICAL OINTMENT FOR DECOLONIZATION NS SCH ×2 (10:47→21:11)
[2015-07-01] MEDS: PANTOPRAZOLE SODIUM 40 MG in SODIUM CHLORIDE 100 ML IVPB SCH ×2 (10:48→21:10)
--- NOTE | 2015-07-01 10:57 | PN ---
Progress Note (short form) - Note Progress Note: Subjective: intubated .off sedation since yesterday.no events over night Objective: Last Vital Signs Temp Pulse Resp BP Pulse Ox 97.3 F L 74 17 186/79 100 06/30/15 08:00 06/30/15 10:00 06/30/15 10:00 06/30/15 10:00 06/30/15 09:00 Physical Exam: NAD , intubated, non responsive CV: RRR, lungs: CTAB ext : no edema on legs . abd : soft, NT, ND , nl BS Intake & Output 06/28/15 06/29/15 06/30/15 07/01/15 23:59 23:59 23:59 23:59 Intake Total 3568 5492 2766.4 412.5 Output Total 1100 1400 1600 600 Balance 2468 4092 1166.4 -187.5 Weight 175 lb 8 oz 177 lb 6 oz 188 lb 7.924 oz 186 lb 4.65 oz Labs: Laboratory Results - last 24 hr 06/26/15 06/30/15 06/30/15 21:50 05:35 12:18 WBC RBC Hgb Hct MCV MCHC RDW Plt Count MPV Neutrophils % Lymphocytes % Monocytes % Eosinophils % Basophils % INR PTT (Actin FS) Sodium Potassium Chloride Carbon Dioxide Anion Gap BUN Creatinine Creat Clearance w eGFR POC Glucometer 198.61293 211.13712 Random Glucose Calcium Phosphorus Magnesium Total Bilirubin AST ALT Alkaline Phosphatase Total Protein Albumin Blood Type O POSITIVE Antibody Screen Negative Crossmatch See Detail Crossmatch IS Only See Detail Spec Expiration Date 06/30/15 06/30/15 06/30/15 15:15 16:30 18:10 WBC RBC Hgb Hct MCV MCHC RDW Plt Count MPV Neutrophils % Lymphocytes % Monocytes % Eosinophils % Basophils % INR PTT (Actin FS) Sodium 149 H Potassium Chloride Carbon Dioxide Anion Gap BUN Creatinine Creat Clearance w eGFR POC Glucometer 208.77430 Random Glucose Calcium Phosphorus Magnesium Total Bilirubin AST ALT Alkaline Phosphatase Total Protein Albumin Blood Type O POSITIVE Antibody Screen Negative Crossmatch See Detail Crossmatch IS Only Spec Expiration Date 07/01/15 07/01/15 07/01/15 00:30 03:00 05:30 WBC 16.6 H 16.7 H RBC 3.07 L D 2.94 L Hgb 9.1 L D 8.9 L Hct 27.4 L D 25.8 L MCV 89.2 87.7 MCHC 33.0 34.4 RDW 15.4 15.2 Plt Count 110 L 105 L MPV 9.5 D 8.5 D Neutrophils % 79.4 Lymphocytes % 9.9 Monocytes % 6.8 Eosinophils % 3.6 Basophils % 0.3 INR 1.34 H PTT (Actin FS) 27.8 Sodium 149 H Potassium 3.4 L Chloride 117 H Carbon Dioxide 26 Anion Gap 6 L BUN 14 D Creatinine 1.1 Creat Clearance w eGFR > 60 POC Glucometer 157.66011 Random Glucose 153 H Calcium 7.8 L Phosphorus 2.1 L Magnesium 2.1 Total Bilirubin 0.6 D AST 12 L ALT 14 Alkaline Phosphatase 44 L Total Protein 4.6 L Albumin 2.1 L Blood Type Antibody Screen Crossmatch Crossmatch IS Only Spec Expiration Date 07/01/15 05:59 WBC RBC Hgb Hct MCV MCHC RDW Plt Count MPV Neutrophils % Lymphocytes % Monocytes % Eosinophils % Basophils % INR PTT (Actin FS) Sodium Potassium Chloride Carbon Dioxide Anion Gap BUN Creatinine Creat Clearance w eGFR POC Glucometer 170.51503 Random Glucose Calcium Phosphorus Magnesium Total Bilirubin AST ALT Alkaline Phosphatase Total Protein Albumin Blood Type Antibody Screen Crossmatch Crossmatch IS Only Spec Expiration Date Assessment/Plan: This is a 75yo M with PMHx HTN, DM and inguinal hernia now presenting with dark tarry stool and BRBPR with epidose of syncope 1- Lower GI bleed :post op day 2 s/p R hemicolectomy - Hb 8.9 . s/p 2 units of RBC yesterday - repeat Hb in am - cont PPI BID 2- AMS , inability to extubate : off sedation since yesterday am. ? IC process . ? non convulsive seizures ( unlikely ) . ? unoxic brain injury Ct scan of head ordered. if CT scan with no etiology , will c/s neuro 3- lacute resp failure : due to possible aspiration PNA , - intubated now - cont CtX, and flagyl -try to extubate when possible 4- HTN: added standing lopressor IV q 6 hr this am . HR can tolerate will monitor 5- hypernatremia : due to dehydration and free water loss . cont NS @ 75 . 6- DAVID : due to pre-renal azotemia , can't r/o ATN monitor 7-DM : SSI q 6 hrs 8- hypokalemia , hypophosphatemia : replete DVT PX : SCds ICU level of care ' critical time spent 35 min
[2015-07-01] MEDS: morphine CARPU-JECT 4 MG/1 ML DISP.SYRIN IVPUSH PRN (11:21)
[2015-07-01] MEDS: CEFTRIAXONE 2 GM in DEXTROSE 5%-WATER - 100 ML IVPB SCH (11:24)
--- NOTE | 2015-07-01 12:44 | PN ---
Progress Note (short form) - Note Progress Note: POD#2 s/p Right hemicolectomy for transverse colon diverticulum. As per nursing staff, pt now off sedation since yesterday and is responsive to suctioning. Head CT just completed. No rectal bleeding noted, s/p 2 units PRBC overnight Vital Signs Period Temp Pulse Resp BP Sys/Santiago Pulse Ox Last 24 Hr 98.1 F-99.4 F 72-105 14-23 142-197/55-90 99-100 ngt: bilious, minimal castellano-2200ml over 24 hours PE: GEN: intubated, non-responsive to painful stimuli HEENT: puplis equal and reactive to light ABD: soft, non-distended, non-tender. midline inc c/d/i with naiv LE: scds in place, no calf swelling b/l CBC, BMP 07/01/15 05:30 07/01/15 05:30 CT-07/01 acute, nonhemorrhagic right frontal infarct A/P: 75 yo male s/p Right hemicolectomy, POD#2 now off sedation, non-responsive with CT findings of right frontal non-hemorrhagic infarct cont supportive care neurology consult as per ICU H&H 07/24 after 2 units PRBC post-op without evidence of further rectal bleeding. Continue to monitor daily. May use ngt for meds if needed, but no feeds until bowel function returns D/w Dr. Cardoza
--- NOTE | 2015-07-01 13:00 | HOSP ---
Subjective - Review of Symptoms Events since last encounter: CT scan of head reviewed. Acute stroke . I called a consult for Dr. Nelson, office notified by me and I am waiting for a call back - unfortunately , in the setting of recent severe GI bleed, I can't give aspirin . - will apply permissive HTN, will not treat untill BP > 200/110. - RN notified of new BP med changes - will call daughter Carole Physical Examination Vital Signs: Vital Signs Temperature 98.9 F 07/01/15 10:00 Pulse Rate 93 H 07/01/15 10:56 Respiratory Rate 17 07/01/15 10:56 Blood Pressure 189/88 07/01/15 10:45 O2 Sat by Pulse Oximetry (%) 100 07/01/15 10:56 Labs: CBC, BMP 07/01/15 05:30 07/01/15 05:30
[2015-07-01] MEDS: SODIUM CHLORIDE 0.45%/POT 1,000 ML IV SCH (13:30)
--- NOTE | 2015-07-01 17:27 | PN ---
GI Progress Note Subjective: continue to be unresponsive, spoke to both daughters and made aware diagnosis of acute stroke, no active bleeding noted - Objective Vital Signs: Vital Signs Temperature 100.5 F H 07/01/15 14:00 Pulse Rate 127 H 07/01/15 16:49 Respiratory Rate 16 07/01/15 16:49 Blood Pressure 191/100 07/01/15 16:49 O2 Sat by Pulse Oximetry (%) 100 07/01/15 15:27 Constitutional: Well Nourished Eyes: Yes: Conjunctiva Clear HENT: Yes: Atraumatic Neck: Yes: Supple Respiratory: Yes: Regular ...Auscultate: No: Normoactive Bowel Sounds ...Palpate: Yes: Soft. No: Firm/Rigid, Guarding, Hepatomegaly, Mass, Pulsatile Mass, Splenomegaly, Tenderness Labs: CBC, BMP 07/01/15 05:30 07/01/15 05:30 INR, PTT INR 1.34 (0.86-1.14) H 07/01/15 05:30 Problem List - Problems (1) Lower GI bleed Assessment/Plan: --stable, no bms R> tube feeds as per surgery
--- NOTE | 2015-07-01 17:36 | CONSULT ---
Consult Consult Specialty:: [facility] Referred by:: Jerson Reason for Consultation:: AMS - History Source History Provided By: Medical Record Limitations to Obtaining History: No Limitations - Past Medical History Cardio/Vascular: Yes: HTN Endocrine: Yes: Diabetes Mellitus - Past Surgical History Past Surgical History: Yes: Hernia Repair - Alcohol/Substance Use Hx Alcohol Use: No - Smoking History Smoking history: Never smoked Have you smoked in the past 12 months: No Aproximately how many cigarettes per day: 0 Home Medications - Allergies Allergies/Adverse Reactions: Allergies Allergy/AdvReac Type Severity Reaction Status Date / Time No Known Allergies Allergy Verified 06/26/15 21:31 - Home Medications Home Medications: Ambulatory Orders Amlodipine Besylate [Norvasc -] 5 mg PO DAILY #30 tablet 06/01/15 Lisinopril [Prinivil -] 10 mg PO DAILY #30 tablet 06/01/15 Metoprolol Tartrate [Lopressor -] 25 mg PO DAILY #30 tablet 06/01/15 Pantoprazole Sodium [Protonix -] 40 mg PO DAILY #30 tablet.ec 06/01/15 Repaglinide [Prandin -] 0.5 mg PO TIDCM #90 tablet 06/01/15 Family Disease History - Family Disease History Family History: Denies Other Family History: non-contributory Review of Systems - Review of Systems Constitutional: reports: No Symptoms Eyes: reports: No Symptoms HENT: reports: No Symptoms Physical Exam-Neuro Vital Signs: Vital Signs Temperature 100.5 F H 07/01/15 14:00 Pulse Rate 127 H 07/01/15 16:49 Respiratory Rate 16 07/01/15 16:49 Blood Pressure 191/100 07/01/15 16:49 O2 Sat by Pulse Oximetry (%) 100 07/01/15 15:27 Labs: CBC, BMP 07/01/15 05:30 07/01/15 05:30 INR, PTT INR 1.34 (0.86-1.14) H 07/01/15 05:30 - Neuro Exam Level Of Consciousness: Yes: Comatose (opened eyes ) Eyes: Yes: PERRLA DTR's: 0 Left Bicep, 0 Right Bicep, 0 Right Tricep, 0 Left Brachioradialis Babinski: Present Imaging - Results Cat Scan: Image Reviewed (No CVA) Problem List - Problems (1) Anoxic brain damage Assessment/Plan: NO CVA Head CT repeat NOT BRAIN DANNA No Antiplatelet Prognosis gaurded for any good recoverty follow up with GI
[2015-07-01] MEDS: PROPOFOL 100 ML IVPB SCH (18:16)
--- NOTE | 2015-07-01 19:08 | HOSP ---
Subjective - Review of Symptoms Events since last encounter: Dr. Nelson note reviewed. per him there is no stroke. Dr. nelson paged no response I can't reach the radiologist to discusee. spoke to Dr. Duran , covering for Dr. Nelson. he will look at the CT scan and call back with recommendations , as pt BP is elevated and if he does have a stroke , BP need to be permissively elevated , and if there is no stroke BP need to be lower. Dr. Robertson will call back the covering Night MD. Physical Examination Vital Signs: Vital Signs Temperature 100.5 F H 07/01/15 14:00 Pulse Rate 127 H 07/01/15 16:49 Respiratory Rate 16 07/01/15 16:49 Blood Pressure 191/100 07/01/15 16:49 O2 Sat by Pulse Oximetry (%) 100 07/01/15 15:27 Labs: CBC, BMP 07/01/15 05:30 07/01/15 05:30
[2015-07-01] MEDS: CHLORHEXIDINE GLUCONATE 4% CLEANSER FOR DECOLONIZATION TP SCH (21:11)
--- NOTE | 2015-07-01 22:18 | PN ---
Progress Note (short form) - Note Progress Note: Was asked by the primary care physician to review the head CT. I do agree with the radiologist that there is an acute stroke in the right frontal subcortical centrum semiovale region, it is also possible that the Genu is involved as well. confirm. Comparison is made from prior head ct dated 06/27 in which there findings were not appreciated would reduced sbp by 20% and maintain permissive htn for 48hrs case was discussed with the primary team
[2015-07-02] MEDS: METRONIDAZOLE 500 MG PREMIXED 100 ML IVPB SCH ×3 (02:51→18:44)
[2015-07-02 06:29] LABS: BASOPHIL 0.4 % (0-2.0); MCH 29.8 pg (25.7-33.7); MCHC 33.2 g/dl (32.0-35.9); MEAN CELL VOLUME 89.8 fl (80-96); MEAN PLT VOLUME 8.3 fl (7.5-11.1); NEUTROPHILS 79.6 % (42.8-82.8); PLATELET COUNT 127 K/MM3 (134-434); RDW 15.3 % (11.9-15.9); WHITE BLOOD COUNT 15.1 K/mm3 (4.0-10.0)
[2015-07-02 06:52] LABS: ANION GAP 6 (8-16); CALCIUM 7.6 mg/dL (8.5-10.1); CO2 29 mmol/L (21-32); GLUCOSE,RANDOM 163 mg/dL (74-106); PHOSPHOROUS 1.8 mg/dL (2.5-4.9); SGOT/AST 11 U/L (15-37)
[2015-07-02 06:54] LABS: ALK PHOS 47 U/L (50-136); BILIRUBIN,TOTAL 0.5 mg/dL (0.2-1.0); MAGNESIUM 1.9 mg/dL (1.8-2.4); SGPT/ALT 13 U/L (12-78); TOT PROT 4.7 g/dl (6.4-8.2)
--- NOTE | 2015-07-02 07:29 | PN ---
Progress Note, Physician Chief Complaint: ID Ceftriaxone and metronidazole Intubated Day 3 right hemicolectomy - Current Medication List Current Medications: Active Medications Acetaminophen (Tylenol -) 650 mg PO Q6H PRN PRN Reason: FEVER OR PAIN Chlorhexidine Gluconate (Hibiclens For Decolonization -) 1 applic TP HS [facility] Last Admin: 07/01/15 21:11 Dose: 1 applic Metronidazole (Flagyl 500mg Premixed Ivpb -) 100 mls @ 100 mls/hr IVPB Q8H-IV [facility] Last Admin: 07/02/15 02:51 Dose: 100 mls/hr Propofol (Diprivan -) 100 mls @ 2.292 mls/hr IVPB TITR [facility]; 5 MCG/KG/MIN PRN Reason: Protocol Last Admin: 07/01/15 18:16 Dose: Not Given Ceftriaxone Sodium 2 gm/ (Dextrose) 100 mls @ 200 mls/hr IVPB DAILY [facility] Last Admin: 07/01/15 11:24 Dose: 200 mls/hr Pantoprazole Sodium 40 mg/ (Sodium Chloride) 100 mls @ 200 mls/hr IVPB BID [facility] Last Admin: 07/01/15 21:10 Dose: 200 mls/hr Potassium Chloride/Sodium Chloride (1/2ns+20meq Kcl) 1,000 mls @ 75 mls/hr IV ASDIR [facility] Last Admin: 07/01/15 13:30 Dose: Not Given Insulin Aspart (Novolog Flexpen Sliding Scale -) 0 units SQ Q6HPO [facility] PRN Reason: Protocol Last Admin: 07/02/15 00:00 Dose: Not Given Metoprolol Tartrate (Lopressor Injection -) 5 mg IVPUSH Q6H PRN PRN Reason: HYPERTENSION Mupirocin (Bactroban Ointment (For Decolonization) -) 1 applic NS BID [facility] Stop: 07/04/15 21:59 Last Admin: 07/01/15 21:11 Dose: 1 applic Ondansetron HCl (Zofran Injection -) 4 mg IVPB Q6H PRN PRN Reason: NAUSEA - Objective Vital Signs: Vital Signs Temperature 99.1 F 07/02/15 06:00 Pulse Rate 110 H 07/02/15 06:00 Respiratory Rate 14 07/02/15 06:30 Blood Pressure 163/80 07/02/15 06:00 O2 Sat by Pulse Oximetry (%) 99 07/01/15 21:00 Neck: Yes: WNL, Supple Cardiovascular: Yes: Regular Rate and Rhythm, S1, S2 Respiratory: Yes: WNL, Regular, CTA Bilaterally Gastrointestinal: Yes: Soft, Other (Post op dressing) Labs: CBC, BMP 07/02/15 05:20 INR, PTT INR 1.34 (0.86-1.14) H 07/01/15 05:30 Assessment/Plan Laboratory Tests 07/01/15 07/02/15 05:30 05:20 WBC 15.1 H Hgb 8.1 L Hct 24.4 L Plt Count 127 L D BUN 14 D Creatinine 1.1 Assessment 1. Day 3 surgery post op hemicolectomy 2. Respiratory failure 3. Anemia multiple blood transfusions Plan Continue antibiotics to completion another 72 hrs Martín HERRERA
[2015-07-02 07:44] LABS: ARTERIAL BLOOD GAS HCO3 25.5 meq/L (22-26); ARTERIAL BLOOD GAS pH 7.45 (7.35-7.45)
[2015-07-02 07:46] LABS: LPM/O2% 40%; MECH. VENT. YES; PT. ON O2? YES; TYPE OF O2 VENT; VENT RATE 10; VT/PRESS 500
--- NOTE | 2015-07-02 09:34 | PN ---
Progress Note (short form) - Note Progress Note: Subjective: intubated .still unconscious Objective: Last Vital Signs Temp Pulse Resp BP Pulse Ox 99.1 F 110 H 10 L 163/80 100 07/02/15 06:00 07/02/15 06:00 07/02/15 09:00 07/02/15 06:00 07/02/15 09:00 Physical Exam: NAD , intubated, non responsive CV: RRR, lungs: CTAB ext : no edema on legs . abd : soft, NT, ND , nl BS neuro : unconscious, non responsive to sternal rub. no rigidity in arms, falxid . reflexes : 0biceps b/l , 0 knee jerk b/l no facial droop, round pupils Intake & Output 06/29/15 06/30/15 07/01/15 07/02/15 23:59 23:59 23:59 23:59 Intake Total 5492 2766.4 1762.5 1204.2 Output Total 1400 1600 2300 600 Balance 4092 1166.4 -537.5 604.2 Weight 177 lb 6 oz 188 lb 7.924 oz 186 lb 4.65 oz 186 lb 4.65 oz Labs: Laboratory Results - last 24 hr 06/26/15 07/02/15 07/02/15 21:50 02:56 05:20 WBC 15.1 H RBC 2.71 L Hgb 8.1 L Hct 24.4 L MCV 89.8 MCHC 33.2 RDW 15.3 Plt Count 127 L D MPV 8.3 Neutrophils % 79.6 Lymphocytes % 8.7 Monocytes % 7.3 Eosinophils % 4.0 Basophils % 0.4 Puncture Site ABG pH ABG pCO2 at Pt Temp ABG pO2 at Pt Temp ABG HCO3 ABG O2 Sat (Measured) ABG O2 Content ABG Base Excess Izaiah Test O2 Delivery Device Oxygen Flow Rate Vent Mode Vent Rate Mechanical Rate PEEP Pressure Support Vent Sodium 147 H Potassium 3.3 L Chloride 112 H Carbon Dioxide 29 Anion Gap 6 L BUN 13 Creatinine 1.0 Creat Clearance w eGFR > 60 POC Glucometer 178.33162 Random Glucose 163 H Calcium 7.6 L Phosphorus 1.8 L Magnesium 1.9 Total Bilirubin 0.5 AST 11 L ALT 13 Alkaline Phosphatase 47 L Total Protein 4.7 L Albumin 2.0 L Blood Type O POSITIVE Antibody Screen Negative Crossmatch See Detail Crossmatch IS Only See Detail Spec Expiration Date 07/02/15 07/02/15 06:13 07:10 WBC RBC Hgb Hct MCV MCHC RDW Plt Count MPV Neutrophils % Lymphocytes % Monocytes % Eosinophils % Basophils % Puncture Site Right radial ABG pH 7.45 ABG pCO2 at Pt Temp 37.3 ABG pO2 at Pt Temp 177.0 H* D ABG HCO3 25.5 ABG O2 Sat (Measured) 100.0 H* ABG O2 Content 13.7 L ABG Base Excess 2.0 Izaiah Test Positive O2 Delivery Device Vent Oxygen Flow Rate 40% Vent Mode A/c Vent Rate 10 Mechanical Rate Yes PEEP 5.0 Pressure Support Vent 500 Sodium Potassium Chloride Carbon Dioxide Anion Gap BUN Creatinine Creat Clearance w eGFR POC Glucometer 168.56558 Random Glucose Calcium Phosphorus Magnesium Total Bilirubin AST ALT Alkaline Phosphatase Total Protein Albumin Blood Type Antibody Screen Crossmatch Crossmatch IS Only Spec Expiration Date Assessment/Plan: This is a 75yo M with PMHx HTN, DM and inguinal hernia now presenting with dark tarry stool and BRBPR with epidose of syncope, he was admitted to ICU, continued to beedl despite intervention during colonoscopy . he ended up having R hemicolectomy . now with a stroke and inability to extubate 1- Lower GI bleed :post op day 2 s/p R hemicolectomy - Hb 8.1 . s/p RBC transfusions - monitor carefully , transfuse if Hb < 8 - repeat Hb in am - cont PPI BID 2- AMS , inability to extubate , off sedation but no responsivness . CT scan showed [address] Linton note reviewed. can't obtain MRI as intubated . repeat Ct scan ordered. cont with permissive HTN, and appreciate neuro Recs. can't use anti-platelet meds now as pt had severe GI bleed , and Hb is still dropping. further d/w neuro and GI when stable from GI standpoint . 3- acute resp failure : due to possible aspiration PNA , - intubated now . ABG reviewed - cont CtX, and flagyl - ID on case . Recs appreciated 4- HTN: PRN lopressor for BP > 200/110 further Recs by neuro 5- hypernatremia : due to dehydration and free water loss . cont NS @ 75 . Na improved 6- DAVID : due to pre-renal azotemia , resolved 7-DM : SSI q 6 hrs 8- hypokalemia , hypophosphatemia : replete DVT PX : SCds ICU level of care ' critical time spent 35 min case was d/w daughter yesterday. will contact her again today
--- NOTE | 2015-07-02 09:45 | PN ---
Progress Note (short form) - Note Progress Note: Progress Note PULM/CCM Patient Name: RCUZ LEE Date of : 1940 Patient Status: Inpatient Attending Provider: Yolis Arthur Patient seen and examined in the ICU. Intubated on AC Mode of vent. Remains poorly responsive to noxious stimuli. CT Head: viewed by 2 neuro consultants. Suspicion of acute CVA. This was also the opinion of Radiology. Clinically his exam is consistent with an acute neurologic injury. Intake & Output 06/29/15 06/30/15 07/01/15 07/02/15 23:59 23:59 23:59 23:59 Intake Total 5492 2766.4 1762.5 1204.2 Output Total 1400 1600 2300 600 Balance 4092 1166.4 -537.5 604.2 Weight 177 lb 6 oz 188 lb 7.924 oz 186 lb 4.65 oz 186 lb 4.65 oz Last Vital Signs Temp Pulse Resp BP Pulse Ox 99.1 F 110 H 10 L 163/80 100 07/02/15 06:00 07/02/15 06:00 07/02/15 09:00 07/02/15 06:00 07/02/15 09:00 Active Medications Acetaminophen (Tylenol -) 650 mg PO Q6H PRN PRN Reason: FEVER OR PAIN Chlorhexidine Gluconate (Hibiclens For Decolonization -) 1 applic TP HS [facility] Last Admin: 07/01/15 21:11 Dose: 1 applic Metronidazole (Flagyl 500mg Premixed Ivpb -) 100 mls @ 100 mls/hr IVPB Q8H-IV [facility] Last Admin: 07/02/15 02:51 Dose: 100 mls/hr Propofol (Diprivan -) 100 mls @ 2.292 mls/hr IVPB TITR [facility]; 5 MCG/KG/MIN PRN Reason: Protocol Last Admin: 07/01/15 18:16 Dose: Not Given Ceftriaxone Sodium 2 gm/ (Dextrose) 100 mls @ 200 mls/hr IVPB DAILY [facility] Last Admin: 07/01/15 11:24 Dose: 200 mls/hr Pantoprazole Sodium 40 mg/ (Sodium Chloride) 100 mls @ 200 mls/hr IVPB BID [facility] Last Admin: 07/01/15 21:10 Dose: 200 mls/hr Potassium Chloride/Sodium Chloride (1/2ns+20meq Kcl) 1,000 mls @ 75 mls/hr IV ASDIR [facility] Last Admin: 07/01/15 13:30 Dose: Not Given Potassium Phosphate 15 mm/ (Sodium Chloride) 255 mls @ 62.5 mls/hr IVPB ONCE ONE Stop: 07/02/15 13:39 Insulin Aspart (Novolog Flexpen Sliding Scale -) 0 units SQ Q6HPO [facility] PRN Reason: Protocol Last Admin: 07/02/15 00:00 Dose: Not Given Metoprolol Tartrate (Lopressor Injection -) 5 mg IVPUSH Q6H PRN PRN Reason: HYPERTENSION Mupirocin (Bactroban Ointment (For Decolonization) -) 1 applic NS BID [facility] Stop: 07/04/15 21:59 Last Admin: 07/01/15 21:11 Dose: 1 applic Ondansetron HCl (Zofran Injection -) 4 mg IVPB Q6H PRN PRN Reason: NAUSEA Gen: intubated, poorly repsonsive Heart: S1S2 Lung: decreased breath sounds at the bases Abd: soft, (+) Hypoactive BS, dressing dry Ext: no edema Laboratory Results - last 24 hr 06/26/15 07/02/15 07/02/15 21:50 02:56 05:20 WBC 15.1 H RBC 2.71 L Hgb 8.1 L Hct 24.4 L MCV 89.8 MCHC 33.2 RDW 15.3 Plt Count 127 L D MPV 8.3 Neutrophils % 79.6 Lymphocytes % 8.7 Monocytes % 7.3 Eosinophils % 4.0 Basophils % 0.4 Puncture Site ABG pH ABG pCO2 at Pt Temp ABG pO2 at Pt Temp ABG HCO3 ABG O2 Sat (Measured) ABG O2 Content ABG Base Excess Izaiah Test O2 Delivery Device Oxygen Flow Rate Vent Mode Vent Rate Mechanical Rate PEEP Pressure Support Vent Sodium 147 H Potassium 3.3 L Chloride 112 H Carbon Dioxide 29 Anion Gap 6 L BUN 13 Creatinine 1.0 Creat Clearance w eGFR > 60 POC Glucometer 178.29296 Random Glucose 163 H Calcium 7.6 L Phosphorus 1.8 L Magnesium 1.9 Total Bilirubin 0.5 AST 11 L ALT 13 Alkaline Phosphatase 47 L Total Protein 4.7 L Albumin 2.0 L Blood Type O POSITIVE Antibody Screen Negative Crossmatch See Detail Crossmatch IS Only See Detail Spec Expiration Date 07/02/15 07/02/15 06:13 07:10 WBC RBC Hgb Hct MCV MCHC RDW Plt Count MPV Neutrophils % Lymphocytes % Monocytes % Eosinophils % Basophils % Puncture Site Right radial ABG pH 7.45 ABG pCO2 at Pt Temp 37.3 ABG pO2 at Pt Temp 177.0 H* D ABG HCO3 25.5 ABG O2 Sat (Measured) 100.0 H* ABG O2 Content 13.7 L ABG Base Excess 2.0 Izaiah Test Positive O2 Delivery Device Vent Oxygen Flow Rate 40% Vent Mode A/c Vent Rate 10 Mechanical Rate Yes PEEP 5.0 Pressure Support Vent 500 Sodium Potassium Chloride Carbon Dioxide Anion Gap BUN Creatinine Creat Clearance w eGFR POC Glucometer 168.38611 Random Glucose Calcium Phosphorus Magnesium Total Bilirubin AST ALT Alkaline Phosphatase Total Protein Albumin Blood Type Antibody Screen Crossmatch Crossmatch IS Only Spec Expiration Date IMP: Acute CVA S/P Right Hemicoletomy due to Acute Lower Diverticular GI Bleed Acute Blood Loss Anemia Acute Respiratory Failure Pneumonia likely aspiration HTN DM CKD PLAN: - BP control - Neuro F/up - monitor CBC, coags - transfuse as needed - Replete lytes - protonix - IV antibiotics per ID - Enteral feeds when OK with surgery - DVT/GI prophylaxis - Anti-platelets are on hold due to severe bleeding that required surgery and the fact the his H&H is slowly trending down Dr Agosto CCTime 35"
[2015-07-02] MEDS: PANTOPRAZOLE SODIUM 40 MG in SODIUM CHLORIDE 100 ML IVPB SCH ×2 (10:49→22:25)
[2015-07-02] MEDS: CEFTRIAXONE 2 GM in DEXTROSE 5%-WATER - 100 ML IVPB SCH (10:51)
[2015-07-02] MEDS: PROPOFOL 100 ML IVPB SCH ×2 (11:27→16:31)
--- NOTE | 2015-07-02 11:29 | PATH ---
Surgical Pathology Report Patient Name: CRUZ LEE Med. Rec. 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 Specimen(s) Received RIIGHT COLON Clinical History Lower gastrointestinal hemorrhage Final Diagnosis COLON, RIGHT, HEMICOLECTOMY: SEVERE DIVERTICULOSIS WITH FOCI OF PERIDIVERTICULAR ACTIVE AND CHRONIC INFLAMMATION AND FIBROSIS AND EVIDENCE OF PRIOR CLIPPING. APPENDIX WITH PARTIAL FIBROUS OBLITERATION. SURGICAL RESECTION MARGINS APPEAR VIABLE. NO MALIGNANCY IDENTIFIED. Electronically Signed Rashard Heath M.D. Gross Description Received in formalin, labeled "right colon" is a 4 cm in length portion of terminal ileum with an attached 47 cm in length portion of cecum and right colon. The specimen is received partially opened with a stapled proximal resection margin. The specimen displays abundant detached pericolonic adipose tissue. The serosa is pink-sharma and smooth. There is a 9 cm in length vermiform appendix attached to the cecum. The colonic mucosa is sharma-pink, focally congested wit preserved folds and displays three attached alvarez metallic clips. Sectioning of the specimen in the area of the clips reveals a large diverticulum. Sectioning of the remaining specimen reveals numerous diverticula, some of which contain fecal material. No mucosal masses are identified. Language Asst sections submitted in fifteen cassettes as follows: 1, proximal mucosal margin of resection; 2, distal mucosal margin of resection; 3, mesenteric margin of resection; 4, appendix; 5-6, screening representative large diverticulum in area of metallic clip; 7-13, additional screening representative diverticula; 14, uninvolved colon; 15, uninvolved terminal ileum. (DS) [email or web address]/07/01/2015
[2015-07-02] MEDS: MUPIROCIN 2% TOPICAL OINTMENT FOR DECOLONIZATION NS SCH ×2 (11:30→22:25)
--- NOTE | 2015-07-02 11:59 | HOSP ---
Subjective - Review of Symptoms Events since last encounter: called by RN , pt had big red BM . sample sent for guaiac CBC sent I will order 2 units of RBC to be transfused I spoke with DR. Cast who recommended a CTA of abd /pelvis , will d/w Dr. Galindo will talk to daughter Physical Examination Vital Signs: Vital Signs Temperature 99.1 F 07/02/15 06:00 Pulse Rate 110 H 07/02/15 11:29 Respiratory Rate 21 07/02/15 11:35 Blood Pressure 220/111 07/02/15 11:29 O2 Sat by Pulse Oximetry (%) 98 07/02/15 10:19 Labs: CBC, BMP 07/02/15 05:20 07/02/15 05:20
[2015-07-02 12:18] LABS: MCH 30.1 pg (25.7-33.7); MCHC 33.9 g/dl (32.0-35.9); MEAN CELL VOLUME 88.9 fl (80-96); PLATELET COUNT 128 K/MM3 (134-434); RDW 15.2 % (11.9-15.9); WHITE BLOOD COUNT 15.3 K/mm3 (4.0-10.0)
[2015-07-02 14:50] LABS: ART PUNCT SITE ARTERIAL LINE
[2015-07-02] MEDS: INSULIN SLIDING SCALE (NOVOLOG) 1 VIAL SQ SCH ×3 (14:57→18:43)
[2015-07-02] MEDS: ACETAMINOPHEN 1000 MG/100 ML VIAL (NON FORMULARY) IVPB PRN (16:00)
[2015-07-02] MEDS: SODIUM CHLORIDE 0.45%/POT 1,000 ML IV SCH (16:23)
--- NOTE | 2015-07-02 17:51 | PN ---
Progress Note, Physician History of Present Illness: Chart reviwed and events noted Seen in MICU Still vent dependant Now with myoiclinus omnious ssign for brainstem insult No response to verbal stimuli On Propafol - Current Medication List Current Medications: Active Medications Acetaminophen (Ofirmev Injection -) 1,000 mg IVPB Q6H PRN PRN Reason: FEVER OR PAIN Stop: 07/03/15 04:48 Chlorhexidine Gluconate (Hibiclens For Decolonization -) 1 applic TP HS [facility] Last Admin: 07/01/15 21:11 Dose: 1 applic Metronidazole (Flagyl 500mg Premixed Ivpb -) 100 mls @ 100 mls/hr IVPB Q8H-IV [facility] Last Admin: 07/02/15 11:30 Dose: 100 mls/hr Propofol (Diprivan -) 100 mls @ 2.292 mls/hr IVPB TITR [facility]; 5 MCG/KG/MIN PRN Reason: Protocol Last Admin: 07/02/15 16:31 Dose: 2.292 mls/hr Ceftriaxone Sodium 2 gm/ (Dextrose) 100 mls @ 200 mls/hr IVPB DAILY [facility] Last Admin: 07/02/15 10:51 Dose: 200 mls/hr Pantoprazole Sodium 40 mg/ (Sodium Chloride) 100 mls @ 200 mls/hr IVPB BID [facility] Last Admin: 07/02/15 10:49 Dose: 200 mls/hr Potassium Chloride/Sodium Chloride (1/2ns+20meq Kcl) 1,000 mls @ 75 mls/hr IV ASDIR [facility] Last Admin: 07/02/15 16:23 Dose: 75 mls/hr Insulin Aspart (Novolog Flexpen Sliding Scale -) 0 units SQ Q6HPO [facility] PRN Reason: Protocol Last Admin: 07/02/15 14:57 Dose: Not Given Metoprolol Tartrate (Lopressor Injection -) 5 mg IVPUSH Q6H PRN PRN Reason: HYPERTENSION Last Admin: 07/02/15 11:29 Dose: 5 mg Mupirocin (Bactroban Ointment (For Decolonization) -) 1 applic NS BID [facility] Stop: 07/04/15 21:59 Last Admin: 07/02/15 11:30 Dose: 1 applic Ondansetron HCl (Zofran Injection -) 4 mg IVPB Q6H PRN PRN Reason: NAUSEA - Objective Vital Signs: Vital Signs Temperature 99.6 F 07/02/15 12:00 Pulse Rate 90 07/02/15 16:00 Respiratory Rate 25 H 07/02/15 16:00 Blood Pressure 183/79 07/02/15 16:00 O2 Sat by Pulse Oximetry (%) 98 07/02/15 10:19 Constitutional: Yes: Well Nourished Eyes: Yes: WNL HENT: Yes: WNL Neurological: Yes: Other (Coma On vent Myoclonus Eye gaze up tongue sponatenous movement positive corneals tone) Labs: CBC, BMP 07/02/15 11:45 07/02/15 05:20 INR, PTT INR 1.34 (0.86-1.14) H 07/01/15 05:30 - ....Imaging Cat Scan: Image Reviewed Problem List - Problems (1) Anoxic brain damage Assessment/Plan: Again I reviewed all CT from 06/26 till today The patient suffered anoxic shape insults to brian brain with hypoperfsuion It is not classic ischemic CVA BP management is crucial we target mean ABP at 105-110 to keep the cerebral blood flow Prognosis is gaurded for any good recovery
[2015-07-02 19:20] LABS: BASOPHIL 0.2 % (0-2.0); EOSINOPHIL 2.6 % (0-4.5); MCH 29.6 pg (25.7-33.7); MCHC 33.3 g/dl (32.0-35.9); MEAN CELL VOLUME 89.1 fl (80-96); MEAN PLT VOLUME 8.6 fl (7.5-11.1); NEUTROPHILS 82.7 % (42.8-82.8); PLATELET COUNT 131 K/MM3 (134-434); RDW 15.2 % (11.9-15.9); WHITE BLOOD COUNT 15.2 K/mm3 (4.0-10.0)
[2015-07-02] MEDS: CHLORHEXIDINE GLUCONATE 4% CLEANSER FOR DECOLONIZATION TP SCH (22:25)
[2015-07-02] MEDS: METOPROLOL TARTRATE 5 MG/5 ML VIAL IVPUSH PRN (23:50)
[2015-07-03 00:24] LABS: BASOPHIL 0.7 % (0-2.0); EOSINOPHIL 3.8 % (0-4.5); MCH 29.7 pg (25.7-33.7); MCHC 33.4 g/dl (32.0-35.9); MEAN CELL VOLUME 88.7 fl (80-96); MEAN PLT VOLUME 8.6 fl (7.5-11.1); NEUTROPHILS 79.5 % (42.8-82.8); PLATELET COUNT 141 K/MM3 (134-434); RDW 15.2 % (11.9-15.9); WHITE BLOOD COUNT 15.2 K/mm3 (4.0-10.0)
[2015-07-03] MEDS: METRONIDAZOLE 500 MG PREMIXED 100 ML IVPB SCH ×3 (01:15→19:03)
[2015-07-03] MEDS: ACETAMINOPHEN 1000 MG/100 ML VIAL (NON FORMULARY) IVPB PRN (03:11)
[2015-07-03] MEDS: SODIUM CHLORIDE 0.45%/POT 1,000 ML IV SCH ×3 (03:13→22:32)
[2015-07-03] MEDS: INSULIN SLIDING SCALE (NOVOLOG) 1 VIAL SQ SCH ×4 (05:43→19:02)
[2015-07-03] MEDS: PROPOFOL 100 ML IVPB SCH ×2 (05:43→16:10)
[2015-07-03 06:06] LABS: BASOPHIL 0.3 % (0-2.0); EOSINOPHIL 5.4 % (0-4.5); MCH 29.2 pg (25.7-33.7); MCHC 32.8 g/dl (32.0-35.9); MEAN PLT VOLUME 8.4 fl (7.5-11.1); NEUTROPHILS 78.5 % (42.8-82.8); PLATELET COUNT 138 K/MM3 (134-434); RDW 15.6 % (11.9-15.9); WHITE BLOOD COUNT 15.1 K/mm3 (4.0-10.0)
[2015-07-03] MEDS: METOPROLOL TARTRATE 5 MG/5 ML VIAL IVPUSH PRN ×3 (06:39→22:33)
[2015-07-03 07:02] LABS: ALBUMIN 1.8 g/dl (3.5-5.0); ANION GAP 6 (8-16); CALCIUM 7.8 mg/dL (8.5-10.1); CO2 30 mmol/L (21-32); GLUCOSE,RANDOM 121 mg/dL (74-106); MAGNESIUM 1.9 mg/dL (1.8-2.4); PHOSPHOROUS 2.8 mg/dL (2.5-4.9); SGOT/AST 14 U/L (15-37); SGPT/ALT 10 U/L (12-78)
[2015-07-03 07:04] LABS: ALK PHOS 45 U/L (50-136); BILIRUBIN,TOTAL 0.5 mg/dL (0.2-1.0); TOT PROT 4.6 g/dl (6.4-8.2)
[2015-07-03 08:00] LABS: ARTERIAL BLOOD GAS BASE EXCESS 3.4 meq/l (-2-2); ARTERIAL BLOOD GAS HCO3 25.7 meq/L (22-26)
[2015-07-03 08:02] LABS: ART PUNCT SITE ARTERIAL LINE; PT. ON O2? YES
[2015-07-03 08:03] LABS: ARTERIAL BLOOD GAS pH 7.54 (7.35-7.45); LPM/O2% 40%; MECH. VENT. ESPRIT; TYPE OF O2 MEC.VENT; VENT RATE 10; VT/PRESS 500
--- NOTE | 2015-07-03 08:23 | PN ---
Progress Note (short form) - Note Progress Note: Progress Note PULM/CCM Patient Name: CRUZ LEE Date of : 1940 Patient Status: Inpatient Attending Provider: Yolis Arthur Patient seen and examined in the ICU. Intubated on AC Mode of vent. Remains poorly responsive to noxious stimuli. Elevated BP. Intake & Output 06/30/15 07/01/15 07/02/15 07/03/15 23:59 23:59 23:59 23:59 Intake Total 2766.4 1762.5 3714.2 753 Output Total 1600 2300 2400 600 Balance 1166.4 -537.5 1314.2 153 Weight 188 lb 7.924 oz 186 lb 4.65 oz 186 lb 4.65 oz 182 lb 12.8 oz Last Vital Signs Temp Pulse Resp BP Pulse Ox 98.7 F 77 27 H 197/88 100 07/03/15 08:00 07/03/15 08:00 07/03/15 08:00 07/03/15 08:00 07/02/15 22:00 Active Medications Chlorhexidine Gluconate (Hibiclens For Decolonization -) 1 applic TP HS [facility] Last Admin: 07/02/15 22:25 Dose: 1 applic Metronidazole (Flagyl 500mg Premixed Ivpb -) 100 mls @ 100 mls/hr IVPB Q8H-IV [facility] Last Admin: 07/03/15 01:15 Dose: 100 mls/hr Propofol (Diprivan -) 100 mls @ 2.292 mls/hr IVPB TITR [facility]; 5 MCG/KG/MIN PRN Reason: Protocol Last Admin: 07/03/15 05:43 Dose: 3.667 mls/hr Ceftriaxone Sodium 2 gm/ (Dextrose) 100 mls @ 200 mls/hr IVPB DAILY [facility] Last Admin: 07/02/15 10:51 Dose: 200 mls/hr Pantoprazole Sodium 40 mg/ (Sodium Chloride) 100 mls @ 200 mls/hr IVPB BID [facility] Last Admin: 07/02/15 22:25 Dose: 200 mls/hr Potassium Chloride/Sodium Chloride (1/2ns+20meq Kcl) 1,000 mls @ 75 mls/hr IV ASDIR [facility] Last Admin: 07/03/15 03:13 Dose: 75 mls/hr Insulin Aspart (Novolog Flexpen Sliding Scale -) 0 units SQ Q6HPO [facility] PRN Reason: Protocol Last Admin: 07/03/15 05:43 Dose: Not Given Metoprolol Tartrate (Lopressor Injection -) 5 mg IVPUSH Q6H PRN PRN Reason: HYPERTENSION Last Admin: 07/03/15 06:39 Dose: 5 mg Mupirocin (Bactroban Ointment (For Decolonization) -) 1 applic NS BID [facility] Stop: 07/04/15 21:59 Last Admin: 07/02/15 22:25 Dose: 1 applic Ondansetron HCl (Zofran Injection -) 4 mg IVPB Q6H PRN PRN Reason: NAUSEA Gen: intubated, poorly repsonsive Heart: S1S2 Lung: decreased breath sounds at the bases Abd: soft, (+) Hypoactive BS, dressing dry Ext: no edema IMP: Acute Brainstem CVA S/P Right Hemicoletomy due to Acute Lower Diverticular GI Bleed Acute Blood Loss Anemia Acute Respiratory Failure Pneumonia likely aspiration HTN DM CKD PLAN: - BP control -> will add Enalaprilat for better BP control - Neuro F/up - monitor CBC, coags - transfuse as needed - Replete lytes - protonix - IV antibiotics per ID - Enteral feeds when OK with surgery - DVT/GI prophylaxis - Anti-platelets are on hold due to severe bleeding that required surgery and the fact the his H&H is slowly trending down Dr Agosto CCTime 35"
--- NOTE | 2015-07-03 08:47 | PN ---
Progress Note (short form) - Note Progress Note: Pt sedated on the vent. Not waking up. Discussed with RN Fever 100.7 o/n. No further rectal bleeding. BP elevated. Objective Last Vital Signs Temp Pulse Resp BP Pulse Ox 98.7 F 77 27 H 197/88 100 07/03/15 08:00 07/03/15 08:00 07/03/15 08:00 07/03/15 08:00 07/02/15 22:00 Physical Examination Constitutional: Yes: Well Nourished, No Distress, sedated on the vent HENT: Yes: Atraumatic, Normocephalic, Other (pallor, no scleral icterus. Facial/ lip laceration, no bleeding) Cardiovascular: Yes: Regular Rate and Rhythm, S1, S2 Respiratory: Yes: CTA Bilaterally. 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 Labs: CBCD WBC 15.1 K/mm3 (4.0-10.0) H 07/03/15 05:15 RBC 2.84 M/mm3 (4.00-5.60) L 07/03/15 05:15 Hgb 8.3 GM/dL (11.7-16.9) L 07/03/15 05:15 Hct 25.3 % (35.4-49) L 07/03/15 05:15 MCV 89.0 fl (80-96) 07/03/15 05:15 MCHC 32.8 g/dl (32.0-35.9) 07/03/15 05:15 RDW 15.6 % (11.9-15.9) 07/03/15 05:15 Plt Count 138 K/MM3 (134-434) 07/03/15 05:15 MPV 8.4 fl (7.5-11.1) 07/03/15 05:15 CMP Sodium 147 mmol/L (136-145) H 07/03/15 05:15 Potassium 3.4 mmol/L (3.5-5.1) L 07/03/15 05:15 Chloride 111 mmol/L (98-107) H 07/03/15 05:15 Carbon Dioxide 30 mmol/L (21-32) 07/03/15 05:15 Anion Gap 6 (8-16) L 07/03/15 05:15 BUN 15 mg/dL (7-18) 07/03/15 05:15 Creatinine 1.0 mg/dL (0.6-1.3) 07/03/15 05:15 Creat Clearance w eGFR > 60 (>60) 07/03/15 05:15 Random Glucose 121 mg/dL (74-106) H D 07/03/15 05:15 Calcium 7.8 mg/dL (8.5-10.1) L 07/03/15 05:15 Total Bilirubin 0.5 mg/dL (0.2-1.0) 07/03/15 05:15 AST 14 U/L (15-37) L D 07/03/15 05:15 ALT 10 U/L (12-78) L D 07/03/15 05:15 Alkaline Phosphatase 45 U/L (50-136) L 07/03/15 05:15 Total Protein 4.6 g/dl (6.4-8.2) L 07/03/15 05:15 Albumin 1.8 g/dl (3.5-5.0) L 07/03/15 05:15 CARDIAC ENZYMES Creatine Kinase 62 IU/L (38-174) 06/28/15 09:35 Troponin I 0.11 ng/ml (0.03-0.5) D 06/28/15 09:35 Current Medications Generic Name Dose Route Start Last Admin Trade Name Ginette PRN Reason Stop Dose Admin Chlorhexidine Gluconate 1 applic 06/29/15 22:00 07/02/15 22:25 Hibiclens For Decolonization - TP 1 applic HS [facility] Administration Enalaprilat 1.25 mg 07/03/15 09:00 Vasotec Injection - IVPB Q6H-IV [facility] Hydralazine HCl 10 mg 07/03/15 08:42 Apresoline Injection - IVPUSH 07/03/15 08:43 ONCE ONE Metronidazole 100 mls @ 100 mls/hr 06/29/15 18:00 07/03/15 01:15 Flagyl 500mg Premixed Ivpb - IVPB 100 mls/hr Q8H-IV [facility] Administration Propofol 100 mls @ 2.292 mls/hr 06/29/15 16:02 07/03/15 05:43 Diprivan - IVPB 3.667 mls/hr TITR [facility] Administration Protocol 5 MCG/KG/MIN Ceftriaxone Sodium 2 gm/ 100 mls @ 200 mls/hr 06/30/15 10:00 07/02/15 10:51 Dextrose IVPB 200 mls/hr DAILY [facility] Administration Pantoprazole Sodium 40 mg/ 100 mls @ 200 mls/hr 06/29/15 22:00 07/02/15 22:25 Sodium Chloride IVPB 200 mls/hr BID [facility] Administration Potassium Chloride/Sodium Chloride 1,000 mls @ 75 mls/hr 06/30/15 13:30 03:13 1/2ns+20meq Kcl IV 75 mls/hr ASDIR [facility] Administration Potassium Chloride 100 mls @ 100 mls/hr 07/03/15 08:30 Potassium Chloride 10 Meq Premix Ivpb - IVPB 07/03/15 10:29 Q60M [facility] Insulin Aspart 0 units 06/29/15 18:00 07/03/15 05:43 Novolog Flexpen Sliding Scale - SQ Not Given Q6HPO [facility] Protocol Metoprolol Tartrate 5 mg 07/02/15 19:04 07/03/15 06:39 Lopressor Injection - IVPUSH 5 mg Q6H PRN Administration HYPERTENSION Mupirocin 1 applic 06/29/15 22:00 07/02/15 22:25 Bactroban Ointment (For Decolonization) - NS 07/04/15 21:59 1 applic BID [facility] Administration Ondansetron HCl 4 mg 06/29/15 16:02 Zofran Injection - IVPB Q6H PRN NAUSEA Hospitalist Encounter Assessment: A/P This is a 75yo M with PMHx HTN, DM and inguinal hernia who presented with dark tarry stool and BRBPR with episode of syncope, now s/p rt hemicolectomy and unresponsive on the vent AMS r/o anoxic brain injury r/o CVA -remains intubated on the vent, sedated -pulmonary/critical care mgmt appreciated -f/u abg and cxr -neurology f/u appreciated -pt now with myocolonus jerks GI bleed, lower due to diverticular bleed s/p Rt hemicolectomy, POD#4 -surgery f/u appreciated -s/p colonoscopy and clipped -gi f/u appreciated -no further melena, all BRBPR cw diverticular LGIB and as per scope -cont icu monitoring -protonix drip -npo -ivf -f/u h/h stable, hgb 8.3 -cont flagyl and rocephin as per ID Syncope, likely secondary acute blood loss vs neurologic event -echo showed ef 51%, nml LVSF, mod LVH -Reviewed CT head showing acute vs. subacute infarct -fall precautions -bedrest for now -cont ivf Acute blood loss anemia secondary #1 -f/u h/h, stable w/o further bleeding -transfuse to keep hgb >7 Fever r/o aspiration -pt remains on the vent; pulmonary/CC mgmt appreciated -f/u cxr and abg -trend fever -f/u cultures -cont levaquin and added flagyl to cover anaerobes Accelerated HTN-uncontrolled, stable -cont lopressor and vasotec -added 1 dose hydralazine for sbp 170-200 this am Hypokalemia -replete and check mg; but K+ likely to increased after prbc transfusion as well DAVID- likely dehydration and acute blood loss, improved -avoid nephrotoxic agents -f/u bun/creat, stable -f/u UA DM-controlled -NISS with fsbs q6 -hold oral hypoglycemics while npo dvt/gi prophylaxis -scds, no anticoagulation secondary gib -ppi drip
[2015-07-03] MEDS: ENALAPRILAT DIHYDRATE 1.25 MG/1 ML VIAL IVPB SCH ×3 (09:08→21:00)
[2015-07-03] MEDS: PANTOPRAZOLE SODIUM 40 MG in SODIUM CHLORIDE 100 ML IVPB SCH ×2 (09:30→22:00)
[2015-07-03] MEDS: CEFTRIAXONE 2 GM in DEXTROSE 5%-WATER - 100 ML IVPB SCH (09:31)
--- NOTE | 2015-07-03 10:32 | PN ---
Progress Note (short form) - Note Progress Note: s/p right hemicolectomy stable from surgical point of view with bowel function Incision clean and dry NGt Not in good position ( distal esophagus) would replace witha dopoff feeing tube and may start tube feediings as per ICU team. Thanks
[2015-07-03] MEDS: KCL 10 MEQ IVPB 100 ML IVPB SCH ×2 (10:53→12:25)
[2015-07-03] MEDS: MUPIROCIN 2% TOPICAL OINTMENT FOR DECOLONIZATION NS SCH ×2 (10:54→22:18)
[2015-07-03] MEDS: CHLORHEXIDINE GLUCONATE 4% CLEANSER FOR DECOLONIZATION TP SCH (22:23)
[2015-07-04] MEDS: METRONIDAZOLE 500 MG PREMIXED 100 ML IVPB SCH ×3 (02:00→19:12)
[2015-07-04] MEDS: ENALAPRILAT DIHYDRATE 1.25 MG/1 ML VIAL IVPB SCH ×4 (02:56→21:30)
[2015-07-04] MEDS: PROPOFOL 100 ML IVPB SCH ×3 (02:57→23:40)
[2015-07-04] MEDS: METOPROLOL TARTRATE 5 MG/5 ML VIAL IVPUSH PRN ×3 (06:00→23:41)
[2015-07-04] MEDS: INSULIN SLIDING SCALE (NOVOLOG) 1 VIAL SQ SCH ×4 (06:00→19:11)
[2015-07-04 06:55] LABS: BASOPHIL 0.4 % (0-2.0); EOSINOPHIL 4.2 % (0-4.5); MCH 29.8 pg (25.7-33.7); MCHC 33.5 g/dl (32.0-35.9); MEAN CELL VOLUME 88.7 fl (80-96); MEAN PLT VOLUME 8.8 fl (7.5-11.1); PLATELET COUNT 187 K/MM3 (134-434); RDW 15.4 % (11.9-15.9); WHITE BLOOD COUNT 17.5 K/mm3 (4.0-10.0)
[2015-07-04 07:39] LABS: ALK PHOS 51 U/L (50-136); ANION GAP 9 (8-16); BILIRUBIN,TOTAL 0.5 mg/dL (0.2-1.0); CALCIUM 8.3 mg/dL (8.5-10.1); CO2 24 mmol/L (21-32); CREATININE 0.9 mg/dL (0.6-1.3); GLUCOSE,RANDOM 132 mg/dL (74-106); MAGNESIUM 1.8 mg/dL (1.8-2.4); PHOSPHOROUS 2.7 mg/dL (2.5-4.9); SGOT/AST 18 U/L (15-37); SGPT/ALT 11 U/L (12-78); TOT PROT 5.5 g/dl (6.4-8.2)
[2015-07-04 08:06] LABS: ARTERIAL BLD GAS O2 SATURATION 99.8 % (90-98.9); ARTERIAL BLOOD GAS BASE EXCESS 0.6 meq/l (-2-2); ARTERIAL BLOOD GAS HCO3 22.9 meq/L (22-26)
--- NOTE | 2015-07-04 08:22 | PN ---
Progress Note (short form) - Note Progress Note: Progress Note PULM/CCM Patient Name: CRUZ LEE Date of : 1940 Patient Status: Inpatient Attending Provider: Yolis Arthur Patient seen and examined in the ICU. Intubated on AC Mode of vent. Remains poorly responsive to noxious stimuli, although he is no low dose propofol. Intake & Output 07/01/15 07/02/15 07/03/15 07/04/15 23:59 23:59 23:59 23:59 Intake Total 1762.5 3714.2 1163 692.5 Output Total 2300 2400 2300 500 Balance -537.5 1314.2 -1137 192.5 Weight 186 lb 4.65 oz 186 lb 4.65 oz 182 lb 12.8 oz 181 lb 6.4 oz Last Vital Signs Temp Pulse Resp BP Pulse Ox 98.1 F 89 18 188/92 97 07/04/15 06:00 07/04/15 06:00 07/04/15 07:18 07/04/15 06:00 07/03/15 22:00 Active Medications Chlorhexidine Gluconate (Hibiclens For Decolonization -) 1 applic TP HS [facility] Last Admin: 07/03/15 22:23 Dose: 1 applic Enalaprilat (Vasotec Injection -) 1.25 mg IVPB Q6H-IV [facility] Last Admin: 07/04/15 08:18 Dose: 1.25 mg Metronidazole (Flagyl 500mg Premixed Ivpb -) 100 mls @ 100 mls/hr IVPB Q8H-IV [facility] Last Admin: 07/04/15 02:00 Dose: 100 mls/hr Propofol (Diprivan -) 100 mls @ 2.292 mls/hr IVPB TITR [facility]; 5 MCG/KG/MIN PRN Reason: Protocol Last Admin: 07/04/15 02:57 Dose: 2.292 mls/hr Ceftriaxone Sodium 2 gm/ (Dextrose) 100 mls @ 200 mls/hr IVPB DAILY [facility] Last Admin: 07/03/15 09:31 Dose: 200 mls/hr Pantoprazole Sodium 40 mg/ (Sodium Chloride) 100 mls @ 200 mls/hr IVPB BID [facility] Last Admin: 07/03/15 22:00 Dose: 200 mls/hr Potassium Chloride/Sodium Chloride (1/2ns+20meq Kcl) 1,000 mls @ 75 mls/hr IV ASDIR [facility] Last Admin: 07/03/15 22:32 Dose: 75 mls/hr Insulin Aspart (Novolog Flexpen Sliding Scale -) 0 units SQ Q6HPO [facility] PRN Reason: Protocol Last Admin: 07/04/15 06:00 Dose: Not Given Metoprolol Tartrate (Lopressor Injection -) 5 mg IVPUSH Q6H PRN PRN Reason: HYPERTENSION Last Admin: 07/04/15 06:00 Dose: 5 mg Mupirocin (Bactroban Ointment (For Decolonization) -) 1 applic NS BID [facility] Stop: 07/04/15 21:59 Last Admin: 07/03/15 22:18 Dose: 1 applic Ondansetron HCl (Zofran Injection -) 4 mg IVPB Q6H PRN PRN Reason: NAUSEA Gen: intubated, poorly repsonsive Heart: S1S2 Lung: decreased breath sounds at the bases Abd: soft, (+) Hypoactive BS, dressing dry Ext: no edema Laboratory Results - last 24 hr 06/30/15 07/03/15 07/04/15 15:15 11:41 05:15 WBC 17.5 H RBC 3.31 L Hgb 9.9 L D Hct 29.4 L D MCV 88.7 MCHC 33.5 RDW 15.4 Plt Count 187 D MPV 8.8 Neutrophils % 80.0 Lymphocytes % 9.5 Monocytes % 5.9 Eosinophils % 4.2 Basophils % 0.4 Sodium 142 Potassium 3.3 L Chloride 109 H Carbon Dioxide 24 Anion Gap 9 BUN 16 Creatinine 0.9 Creat Clearance w eGFR > 60 POC Glucometer [phone] Random Glucose 132 H Calcium 8.3 L Phosphorus 2.7 Magnesium 1.8 Total Bilirubin 0.5 AST 18 D ALT 11 L Alkaline Phosphatase 51 Total Protein 5.5 L Albumin 2.0 L Blood Type O POSITIVE Antibody Screen Negative Crossmatch See Detail 07/04/15 05:18 WBC RBC Hgb Hct MCV MCHC RDW Plt Count MPV Neutrophils % Lymphocytes % Monocytes % Eosinophils % Basophils % Sodium Potassium Chloride Carbon Dioxide Anion Gap BUN Creatinine Creat Clearance w eGFR POC Glucometer [phone] Random Glucose Calcium Phosphorus Magnesium Total Bilirubin AST ALT Alkaline Phosphatase Total Protein Albumin Blood Type Antibody Screen Crossmatch IMP: Acute Brainstem CVA S/P Right Hemicoletomy due to Acute Lower Diverticular GI Bleed Acute Blood Loss Anemia Acute Respiratory Failure Pneumonia likely aspiration HTN DM CKD PLAN: - BP control -> MAP 105 to 110 per Guidelines to maintain perfusion - monitor CBC, coags - transfuse as needed - Replete lytes - protonix - IV antibiotics per ID - Enteral feeds trial - DVT/GI prophylaxis - Anti-platelets are on hold due to severe bleeding that required surgery and the fact the his H&H is slowly trending down Dr Agosto CCTime 35"
[2015-07-04 08:49] LABS: ART PUNCT SITE ARTERIAL LINE; LPM/O2% 30%; MECH. VENT. ESPRIT; PT. ON O2? YES; TYPE OF O2 MEC.VENT; VENT RATE 10; VT/PRESS 500
[2015-07-04] MEDS: PANTOPRAZOLE SODIUM 40 MG in SODIUM CHLORIDE 100 ML IVPB SCH ×2 (09:21→22:00)
[2015-07-04] MEDS: CEFTRIAXONE 2 GM in DEXTROSE 5%-WATER - 100 ML IVPB SCH (09:21)
--- NOTE | 2015-07-04 10:54 | PN ---
Progress Note (short form) - Note Progress Note: Pt sedated on the vent. Not waking up. Discussed with RN no fever o/n. No further rectal bleeding. Brown stool. BP elevated. Remains npo. Objective Last Vital Signs Temp Pulse Resp BP Pulse Ox 99.1 F 105 H 17 197/91 97 07/04/15 10:00 07/04/15 10:00 07/04/15 10:00 07/04/15 10:00 07/04/15 09:00 Physical Examination Constitutional: Yes: Well Nourished, No Distress, sedated on the vent HENT: Yes: Atraumatic, Normocephalic, Other (pallor, no scleral icterus. Facial/ lip laceration, no bleeding) Cardiovascular: Yes: Regular Rate and Rhythm, S1, S2 Respiratory: Yes: CTA Bilaterally. 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 WBC 17.5 K/mm3 (4.0-10.0) H 07/04/15 05:15 RBC 3.31 M/mm3 (4.00-5.60) L 07/04/15 05:15 Hgb 9.9 GM/dL (11.7-16.9) L D 07/04/15 05:15 Hct 29.4 % (35.4-49) L D 07/04/15 05:15 MCV 88.7 fl (80-96) 07/04/15 05:15 MCHC 33.5 g/dl (32.0-35.9) 07/04/15 05:15 RDW 15.4 % (11.9-15.9) 07/04/15 05:15 Plt Count 187 K/MM3 (134-434) D 07/04/15 05:15 MPV 8.8 fl (7.5-11.1) 07/04/15 05:15 CMP Sodium 142 mmol/L (136-145) 07/04/15 05:15 Potassium 3.3 mmol/L (3.5-5.1) L 07/04/15 05:15 Chloride 109 mmol/L (98-107) H 07/04/15 05:15 Carbon Dioxide 24 mmol/L (21-32) 07/04/15 05:15 Anion Gap 9 (8-16) 07/04/15 05:15 BUN 16 mg/dL (7-18) 07/04/15 05:15 Creatinine 0.9 mg/dL (0.6-1.3) 07/04/15 05:15 Creat Clearance w eGFR > 60 (>60) 07/04/15 05:15 Random Glucose 132 mg/dL (74-106) H 07/04/15 05:15 Calcium 8.3 mg/dL (8.5-10.1) L 07/04/15 05:15 Total Bilirubin 0.5 mg/dL (0.2-1.0) 07/04/15 05:15 AST 18 U/L (15-37) D 07/04/15 05:15 ALT 11 U/L (12-78) L 07/04/15 05:15 Alkaline Phosphatase 51 U/L (50-136) 07/04/15 05:15 Total Protein 5.5 g/dl (6.4-8.2) L 07/04/15 05:15 Albumin 2.0 g/dl (3.5-5.0) L 07/04/15 05:15 CARDIAC ENZYMES Creatine Kinase 62 IU/L (38-174) 06/28/15 09:35 Troponin I 0.11 ng/ml (0.03-0.5) D 06/28/15 09:35 ABG Results ABG pH 7.50 (7.35-7.45) H 07/04/15 08:00 ABG pCO2 at Pt Temp 29.3 mmHg (35-45) L 07/04/15 08:00 ABG pO2 at Pt Temp 134.0 mmHg (70-100) H 07/04/15 08:00 ABG HCO3 22.9 meq/L (22-26) 07/04/15 08:00 ABG O2 Sat (Measured) 99.8 % (90-98.9) H* 07/04/15 08:00 ABG O2 Content 13.0 % vol (15-22) L 07/04/15 08:00 ABG Base Excess 0.6 meq/l (-2-2) 07/04/15 08:00 Current Medications Generic Name Dose Route Start Last Admin Trade Name Freq PRN Reason Stop Dose Admin Chlorhexidine Gluconate 1 applic 06/29/15 22:00 07/03/15 22:23 Hibiclens For Decolonization - TP 1 applic HS [facility] Administration Enalaprilat 1.25 mg 07/03/15 09:00 07/04/15 08:18 Vasotec Injection - IVPB 1.25 mg Q6H-IV [facility] Administration Metronidazole 100 mls @ 100 mls/hr 06/29/15 18:00 07/04/15 09:21 Flagyl 500mg Premixed Ivpb - IVPB 100 mls/hr Q8H-IV [facility] Administration Propofol 100 mls @ 2.292 mls/hr 06/29/15 16:02 07/04/15 02:57 Diprivan - IVPB 2.292 mls/hr TITR [facility] Administration Protocol 5 MCG/KG/MIN Ceftriaxone Sodium 2 gm/ 100 mls @ 200 mls/hr 06/30/15 10:00 07/04/15 09:21 Dextrose IVPB 200 mls/hr DAILY [facility] Administration Pantoprazole Sodium 40 mg/ 100 mls @ 200 mls/hr 06/29/15 22:00 07/04/15 09:21 Sodium Chloride IVPB 200 mls/hr BID [facility] Administration Potassium Chloride/Sodium Chloride 1,000 mls @ 75 mls/hr 06/30/15 13:30 22:32 1/2ns+20meq Kcl IV 75 mls/hr ASDIR [facility] Administration Insulin Aspart 0 units 06/29/15 18:00 07/04/15 06:00 Novolog Flexpen Sliding Scale - SQ Not Given Q6HPO [facility] Protocol Metoprolol Tartrate 5 mg 07/02/15 19:04 07/04/15 06:00 Lopressor Injection - IVPUSH 5 mg Q6H PRN Administration HYPERTENSION Mupirocin 1 applic 06/29/15 22:00 07/03/15 22:18 Bactroban Ointment (For Decolonization) - NS 07/04/15 21:59 1 applic BID [facility] Administration Ondansetron HCl 4 mg 06/29/15 16:02 Zofran Injection - IVPB Q6H PRN NAUSEA Potassium Chloride 40 meq 07/04/15 18:00 Kcl Oral Solution - PO 07/04/15 18:01 ONCE ONE Microbiology 07/02/15 18:00 Blood - Peripheral Venous Blood Culture - Preliminary NO GROWTH OBTAINED AFTER 24 HOURS, INCUBATION TO CONTINUE FOR 4 DAYS. 07/02/15 18:00 Blood - Peripheral Venous Blood Culture - Preliminary NO GROWTH OBTAINED AFTER 24 HOURS, INCUBATION TO CONTINUE FOR 4 DAYS. 06/28/15 09:32 Blood - Peripheral Venous Blood Culture - Final NO GROWTH AFTER 5 DAYS INCUBATION 06/28/15 09:32 Blood - Peripheral Venous Blood Culture - Final NO GROWTH AFTER 5 DAYS INCUBATION 06/28/15 17:30 Sputum - Endotrachea Suction/Ventilator Gram Stain - Final 06/28/15 17:30 Sputum - Endotrachea Suction/Ventilator Sputum Culture - Final NORMAL RESPIRATORY ARMAND 06/27/15 20:30 Urine - Urine Schwartz Urine Culture - Final NO GROWTH OBTAINED 06/28/15 10:00 Urine For Antigen Detection Legionella Antigen - Final 06/28/15 10:00 Urine For Antigen Detection Streptococcus pneumoniae Antigen (M - Final A/P This is a 75yo M with PMHx HTN, DM and inguinal hernia who presented with dark tarry stool and BRBPR with episode of syncope, now s/p rt hemicolectomy and unresponsive on the vent AMS r/o anoxic brain injury r/o CVA -remains intubated on the vent, sedated -pulmonary/critical care mgmt appreciated -f/u abg and cxr -neurology f/u appreciated -pt now with myocolonus jerks GI bleed, lower due to diverticular bleed s/p Rt hemicolectomy, POD#5 -surgery f/u appreciated -s/p colonoscopy and clipped -gi f/u appreciated -no further melena, all BRBPR cw diverticular LGIB and as per scope -cont icu monitoring -protonix drip -npo -ngt in place with tip in gastric fundus as reviewed xray and report -tody will start enteral feeding trial (Vital 1.2@20cc/hr, increase q8hr 10cc with goal 50cc); ok with pulmonary -ivf -f/u h/h stable, hgb 9.9 -cont flagyl and rocephin as per ID Syncope, likely secondary acute blood loss vs neurologic event -echo showed ef 51%, nml LVSF, mod LVH -Reviewed CT head showing acute vs. subacute infarct -fall precautions -bedrest for now -cont ivf Acute blood loss anemia secondary #1 -f/u h/h, stable w/o further bleeding -transfuse to keep hgb >7 Fever r/o aspiration/leukocytosis -pt remains on the vent; pulmonary/CC mgmt appreciated -f/u cxr and abg -trend fever, 99.1 low grade -wbc uptrending 17.5<-15.1 -f/u cultures -cont levaquin and added flagyl to cover anaerobes Accelerated HTN-uncontrolled, stable -cont lopressor and vasotec -added 1 dose hydralazine for sbp 170-200 this am Hypokalemia -replete and check mg; but K+ likely to increased after prbc transfusion as well DAVID- likely dehydration and acute blood loss, improved -avoid nephrotoxic agents -f/u bun/creat, stable -f/u UA DM-controlled -NISS with fsbs q6 -hold oral hypoglycemics while npo dvt/gi prophylaxis -scds, no anticoagulation secondary gib -ppi drip
[2015-07-04] MEDS: MUPIROCIN 2% TOPICAL OINTMENT FOR DECOLONIZATION NS SCH (11:40)
--- NOTE | 2015-07-04 14:13 | PN ---
Progress Note, Physician History of Present Illness: events noted chart reviewed patient seen in the medical ICU Patient still is vent-dependent patient still with the myoclonic jerking movements these are not seizures. Patient is not responsive to painful stimuli patient grimaces slightly. Patient does not follow any commands all 4 extremities are with increased tone again with no spontaneous movement. - Current Medication List Current Medications: Active Medications Chlorhexidine Gluconate (Hibiclens For Decolonization -) 1 applic TP HS [facility] Last Admin: 07/03/15 22:23 Dose: 1 applic Enalaprilat (Vasotec Injection -) 1.25 mg IVPB Q6H-IV [facility] Last Admin: 07/04/15 08:18 Dose: 1.25 mg Hydralazine HCl (Apresoline Injection -) 10 mg IVPUSH Q6H PRN PRN Reason: HYPERTENSION Metronidazole (Flagyl 500mg Premixed Ivpb -) 100 mls @ 100 mls/hr IVPB Q8H-IV [facility] Last Admin: 07/04/15 09:21 Dose: 100 mls/hr Propofol (Diprivan -) 100 mls @ 2.292 mls/hr IVPB TITR [facility]; 5 MCG/KG/MIN PRN Reason: Protocol Last Titration: 07/04/15 11:41 Dose: 8 mcg/kg/min Ceftriaxone Sodium 2 gm/ (Dextrose) 100 mls @ 200 mls/hr IVPB DAILY [facility] Last Admin: 07/04/15 09:21 Dose: 200 mls/hr Pantoprazole Sodium 40 mg/ (Sodium Chloride) 100 mls @ 200 mls/hr IVPB BID [facility] Last Admin: 07/04/15 09:21 Dose: 200 mls/hr Potassium Chloride/Sodium Chloride (1/2ns+20meq Kcl) 1,000 mls @ 75 mls/hr IV ASDIR [facility] Last Admin: 07/03/15 22:32 Dose: 75 mls/hr Insulin Aspart (Novolog Flexpen Sliding Scale -) 0 units SQ Q6HPO [facility] PRN Reason: Protocol Last Admin: 07/04/15 06:00 Dose: Not Given Metoprolol Tartrate (Lopressor Injection -) 5 mg IVPUSH Q6H PRN PRN Reason: HYPERTENSION Last Admin: 07/04/15 11:03 Dose: 5 mg Mupirocin (Bactroban Ointment (For Decolonization) -) 1 applic NS BID [facility] Stop: 07/04/15 21:59 Last Admin: 07/04/15 11:40 Dose: 1 applic Ondansetron HCl (Zofran Injection -) 4 mg IVPB Q6H PRN PRN Reason: NAUSEA Potassium Chloride (Kcl Oral Solution -) 40 meq PO ONCE ONE Stop: 07/04/15 18:01 - Objective Vital Signs: Vital Signs Temperature 99.1 F 07/04/15 10:00 Pulse Rate 72 07/04/15 12:00 Respiratory Rate 20 07/04/15 12:00 Blood Pressure 185/82 07/04/15 12:00 O2 Sat by Pulse Oximetry (%) 97 07/04/15 10:00 Constitutional: Yes: Well Nourished Eyes: Yes: WNL Neurological: Yes: Other (vvent dependent, , in coma bilateral sluggishly reactive pupil weak gag decreased tone all overcontinue his movements positive corneal) Labs: CBC, BMP 07/04/15 05:15 07/04/15 05:15 INR, PTT INR 1.34 (0.86-1.14) H 07/01/15 05:30 Problem List - Problems (1) Anoxic brain damage Assessment/Plan: not brain 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 Meeting with the family regarding future planning 2. Prognosis is guarded for any functional recovery from the current condition.
[2015-07-04] MEDS: SODIUM CHLORIDE 0.45%/POT 1,000 ML IV SCH (15:04)
[2015-07-04] MEDS: hydrALAZINE HCL 20 MG/ML VIAL IVPUSH PRN (15:25)
[2015-07-04] MEDS: CHLORHEXIDINE GLUCONATE 4% CLEANSER FOR DECOLONIZATION TP SCH (22:00)
[2015-07-05] MEDS: METRONIDAZOLE 500 MG PREMIXED 100 ML IVPB SCH ×3 (02:00→17:25)
[2015-07-05] MEDS: ENALAPRILAT DIHYDRATE 1.25 MG/1 ML VIAL IVPB SCH (03:06)
[2015-07-05] MEDS: SODIUM CHLORIDE 0.45%/POT 1,000 ML IV SCH ×2 (05:21→17:24)
[2015-07-05] MEDS: METOPROLOL TARTRATE 5 MG/5 ML VIAL IVPUSH PRN ×2 (05:22→16:30)
[2015-07-05] MEDS: INSULIN SLIDING SCALE (NOVOLOG) 1 VIAL SQ SCH ×4 (06:00→17:25)
[2015-07-05 06:51] LABS: BASOPHIL 0.4 % (0-2.0); EOSINOPHIL 5.9 % (0-4.5); MCHC 34.1 g/dl (32.0-35.9); MEAN CELL VOLUME 87.9 fl (80-96); MEAN PLT VOLUME 8.3 fl (7.5-11.1); NEUTROPHILS 76.3 % (42.8-82.8); PLATELET COUNT 211 K/MM3 (134-434); RDW 14.9 % (11.9-15.9); WHITE BLOOD COUNT 14.6 K/mm3 (4.0-10.0)
[2015-07-05 07:33] LABS: ALBUMIN 1.9 g/dl (3.5-5.0); ANION GAP 7 (8-16); CALCIUM 7.7 mg/dL (8.5-10.1); CO2 25 mmol/L (21-32); CREATININE 0.9 mg/dL (0.6-1.3); GLUCOSE,RANDOM 189 mg/dL (74-106); MAGNESIUM 1.9 mg/dL (1.8-2.4)
[2015-07-05 07:35] LABS: ALK PHOS 49 U/L (50-136); BILIRUBIN,TOTAL 0.3 mg/dL (0.2-1.0); PHOSPHOROUS 2.7 mg/dL (2.5-4.9); SGOT/AST 18 U/L (15-37); SGPT/ALT 11 U/L (12-78); TOT PROT 4.9 g/dl (6.4-8.2)
--- NOTE | 2015-07-05 08:11 | PN ---
Progress Note (short form) - Note Progress Note: Progress Note PULM/CCM Patient Name: CRUZ LEE Date of : 1940 Patient Status: Inpatient Attending Provider: Yolis Arthur Patient seen and examined in the ICU. Intubated on AC Mode of vent. Remains poorly responsive to noxious stimuli. No significant change in his poor mental status. Tolerating enteral feeds. Intake & Output 07/02/15 07/03/15 07/04/15 07/05/15 23:59 23:59 23:59 23:59 Intake Total 3714.2 1163 2888.5 1023 Output Total 2400 2300 1500 500 Balance 1314.2 -1137 1388.5 523 Weight 186 lb 4.65 oz 182 lb 12.8 oz 181 lb 6.4 oz 182 lb 9.6 oz Last Vital Signs Temp Pulse Resp BP Pulse Ox 98.6 F 82 20 179/85 98 07/05/15 06:00 07/05/15 06:00 07/05/15 06:00 07/05/15 06:00 07/04/15 22:00 Active Medications Chlorhexidine Gluconate (Hibiclens For Decolonization -) 1 applic TP HS [facility] Last Admin: 07/04/15 22:00 Dose: 1 applic Hydralazine HCl (Apresoline Injection -) 10 mg IVPUSH Q6H PRN PRN Reason: HYPERTENSION- prn sbp > 160 Last Admin: 07/04/15 15:25 Dose: 10 mg Metronidazole (Flagyl 500mg Premixed Ivpb -) 100 mls @ 100 mls/hr IVPB Q8H-IV [facility] Last Admin: 07/05/15 02:00 Dose: 100 mls/hr Propofol (Diprivan -) 100 mls @ 2.292 mls/hr IVPB TITR [facility]; 5 MCG/KG/MIN PRN Reason: Protocol Last Admin: 07/04/15 23:40 Dose: 3.667 mls/hr Ceftriaxone Sodium 2 gm/ (Dextrose) 100 mls @ 200 mls/hr IVPB DAILY [facility] Last Admin: 07/04/15 09:21 Dose: 200 mls/hr Pantoprazole Sodium 40 mg/ (Sodium Chloride) 100 mls @ 200 mls/hr IVPB BID [facility] Last Admin: 07/04/15 22:00 Dose: 200 mls/hr Potassium Chloride/Sodium Chloride (1/2ns+20meq Kcl) 1,000 mls @ 75 mls/hr IV ASDIR [facility] Last Admin: 07/05/15 05:21 Dose: 75 mls/hr Insulin Aspart (Novolog Flexpen Sliding Scale -) 0 units SQ Q6HPO [facility] PRN Reason: Protocol Last Admin: 07/05/15 06:00 Dose: Not Given Metoprolol Tartrate (Lopressor Injection -) 5 mg IVPUSH Q6H PRN PRN Reason: HYPERTENSION Last Admin: 07/05/15 05:22 Dose: 5 mg Ondansetron HCl (Zofran Injection -) 4 mg IVPB Q6H PRN PRN Reason: NAUSEA Gen: intubated, poorly repsonsive Heart: S1S2 Lung: decreased breath sounds at the bases Abd: soft, (+) Hypoactive BS, dressing dry Ext: no edema Laboratory Results - last 24 hr 06/30/15 07/04/15 07/04/15 15:15 08:00 17:16 WBC RBC Hgb Hct MCV MCHC RDW Plt Count MPV Neutrophils % Lymphocytes % Monocytes % Eosinophils % Basophils % Puncture Site Arterial line ABG pH 7.50 H ABG pCO2 at Pt Temp 29.3 L ABG pO2 at Pt Temp 134.0 H ABG HCO3 22.9 ABG O2 Sat (Measured) 99.8 H* ABG O2 Content 13.0 L ABG Base Excess 0.6 Izaiah Test Not applicable O2 Delivery Device Mec.vent Oxygen Flow Rate 30% Vent Mode A/c Vent Rate 10 Mechanical Rate Esprit PEEP 5.0 Pressure Support Vent 500 POC Glucometer [phone] Blood Type O POSITIVE Antibody Screen Negative Crossmatch See Detail 07/05/15 07/05/15 07/05/15 01:02 05:40 06:34 WBC 14.6 H RBC 3.03 L Hgb 9.1 L Hct 26.7 L MCV 87.9 MCHC 34.1 RDW 14.9 Plt Count 211 MPV 8.3 Neutrophils % 76.3 Lymphocytes % 10.6 Monocytes % 6.8 Eosinophils % 5.9 H Basophils % 0.4 Puncture Site ABG pH ABG pCO2 at Pt Temp ABG pO2 at Pt Temp ABG HCO3 ABG O2 Sat (Measured) ABG O2 Content ABG Base Excess Izaiah Test O2 Delivery Device Oxygen Flow Rate Vent Mode Vent Rate Mechanical Rate PEEP Pressure Support Vent POC Glucometer 161.74586 [phone] Blood Type Antibody Screen Crossmatch CXR: No gross change 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
[2015-07-05 08:22] LABS: ARTERIAL BLOOD GAS BASE EXCESS 1.5 meq/l (-2-2); ARTERIAL BLOOD GAS HCO3 23.6 meq/L (22-26); ARTERIAL BLOOD GAS pH 7.51 (7.35-7.45)
[2015-07-05 08:23] LABS: ART PUNCT SITE ARTERIAL LINE; LPM/O2% 100; MECH. VENT. YES; PT. ON O2? YES; TYPE OF O2 VENT
[2015-07-05 08:24] LABS: VENT RATE 10; VT/PRESS 500
--- NOTE | 2015-07-05 09:49 | PN ---
Progress Note (short form) - Note Progress Note: Pt sedated on the vent. Not waking up. Discussed with RN no fever o/n. No further rectal bleeding. Having diarrhea. Started on enteral feeds yesterday. BP remains elevated. Objective Last Vital Signs Temp Pulse Resp BP Pulse Ox 98.6 F 84 10 L 182/75 98 07/05/15 06:00 07/05/15 08:00 07/05/15 09:00 07/05/15 08:00 07/05/15 09:00 Physical Examination Constitutional: Yes: Well Nourished, No Distress, sedated on the vent HENT: Yes: Atraumatic, Normocephalic, Other (pallor, no scleral icterus. Facial/ lip laceration, no bleeding) Cardiovascular: Yes: Regular Rate and Rhythm, S1, S2 Respiratory: Yes: CTA Bilaterally. 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, unable to fully assess photographs curator Labs: CBCD WBC 14.6 K/mm3 (4.0-10.0) H 07/05/15 05:40 RBC 3.03 M/mm3 (4.00-5.60) L 07/05/15 05:40 Hgb 9.1 GM/dL (11.7-16.9) L 07/05/15 05:40 Hct 26.7 % (35.4-49) L 07/05/15 05:40 MCV 87.9 fl (80-96) 07/05/15 05:40 MCHC 34.1 g/dl (32.0-35.9) 07/05/15 05:40 RDW 14.9 % (11.9-15.9) 07/05/15 05:40 Plt Count 211 K/MM3 (134-434) 07/05/15 05:40 MPV 8.3 fl (7.5-11.1) 07/05/15 05:40 CMP Sodium 143 mmol/L (136-145) 07/05/15 05:40 Potassium 3.8 mmol/L (3.5-5.1) 07/05/15 05:40 Chloride 111 mmol/L (98-107) H 07/05/15 05:40 Carbon Dioxide 25 mmol/L (21-32) 07/05/15 05:40 Anion Gap 7 (8-16) L 07/05/15 05:40 BUN 18 mg/dL (7-18) 07/05/15 05:40 Creatinine 0.9 mg/dL (0.6-1.3) 07/05/15 05:40 Creat Clearance w eGFR > 60 (>60) 07/05/15 05:40 Random Glucose 189 mg/dL (74-106) H D 07/05/15 05:40 Calcium 7.7 mg/dL (8.5-10.1) L 07/05/15 05:40 Total Bilirubin 0.3 mg/dL (0.2-1.0) D 07/05/15 05:40 AST 18 U/L (15-37) 07/05/15 05:40 ALT 11 U/L (12-78) L 07/05/15 05:40 Alkaline Phosphatase 49 U/L (50-136) L 07/05/15 05:40 Total Protein 4.9 g/dl (6.4-8.2) L 07/05/15 05:40 Albumin 1.9 g/dl (3.5-5.0) L 07/05/15 05:40 CARDIAC ENZYMES Creatine Kinase 62 IU/L (38-174) 06/28/15 09:35 Troponin I 0.11 ng/ml (0.03-0.5) D 06/28/15 09:35 Current Medications Generic Name Dose Route Start Last Admin Trade Name Freq PRN Reason Stop Dose Admin Amlodipine Besylate 5 mg 07/05/15 10:00 Norvasc - PO DAILY KWAKU Chlorhexidine Gluconate 1 applic 06/29/15 22:00 07/04/15 22:00 Hibiclens For Decolonization - TP 1 applic HS KWAKU Administration Hydralazine HCl 10 mg 07/04/15 13:42 07/04/15 15:25 Apresoline Injection - IVPUSH 10 mg Q6H PRN Administration HYPERTENSION- prn sbp > 160 Metronidazole 100 mls @ 100 mls/hr 06/29/15 18:00 07/05/15 02:00 Flagyl 500mg Premixed Ivpb - IVPB 100 mls/hr Q8H-IV KWAKU Administration Propofol 100 mls @ 2.292 mls/hr 06/29/15 16:02 07/04/15 23:40 Diprivan - IVPB 3.667 mls/hr TITR KWAKU Administration Protocol 5 MCG/KG/MIN Ceftriaxone Sodium 2 gm/ 100 mls @ 200 mls/hr 06/30/15 10:00 07/04/15 09:21 Dextrose IVPB 200 mls/hr DAILY KWAKU Administration Pantoprazole Sodium 40 mg/ 100 mls @ 200 mls/hr 06/29/15 22:00 07/04/15 22:00 Sodium Chloride IVPB 200 mls/hr BID KWAKU Administration Potassium Chloride/Sodium Chloride 1,000 mls @ 75 mls/hr 06/30/15 13:30 05:21 1/2ns+20meq Kcl IV 75 mls/hr ASDIR KWAKU Administration Insulin Aspart 0 units 06/29/15 18:00 07/05/15 06:00 Novolog Flexpen Sliding Scale - SQ Not Given Q6HPO KWAKU Protocol Lisinopril 10 mg 07/05/15 10:00 Prinivil - PO DAILY [facility] Metoprolol Tartrate 5 mg 07/02/15 19:04 07/05/15 05:22 Lopressor Injection - IVPUSH 5 mg Q6H PRN Administration HYPERTENSION Ondansetron HCl 4 mg 06/29/15 16:02 Zofran Injection - IVPB Q6H PRN NAUSEA Microbiology 07/02/15 18:00 Blood - Peripheral Venous Blood Culture - Preliminary NO GROWTH OBTAINED AFTER 48 HOURS, INCUBATION TO CONTINUE FOR 3 DAYS. 07/02/15 18:00 Blood - Peripheral Venous Blood Culture - Preliminary NO GROWTH OBTAINED AFTER 48 HOURS, INCUBATION TO CONTINUE FOR 3 DAYS. 06/28/15 09:32 Blood - Peripheral Venous Blood Culture - Final NO GROWTH AFTER 5 DAYS INCUBATION 06/28/15 09:32 Blood - Peripheral Venous Blood Culture - Final NO GROWTH AFTER 5 DAYS INCUBATION 06/28/15 17:30 Sputum - Endotrachea Suction/Ventilator Gram Stain - Final 06/28/15 17:30 Sputum - Endotrachea Suction/Ventilator Sputum Culture - Final NORMAL RESPIRATORY ARMAND 06/27/15 20:30 Urine - Urine Schwartz Urine Culture - Final NO GROWTH OBTAINED 06/28/15 10:00 Urine For Antigen Detection Legionella Antigen - Final 06/28/15 10:00 Urine For Antigen Detection Streptococcus pneumoniae Antigen (M - Final A/P This is a 75yo M with PMHx HTN, DM and inguinal hernia who presented with dark tarry stool and BRBPR with episode of syncope, now s/p rt hemicolectomy and unresponsive on the vent AMS r/o anoxic brain injury r/o CVA, now in ?vegetative state -remains intubated on the vent, sedated -pulmonary/critical care mgmt appreciated -f/u abg and cxr -neurology f/u appreciated -pt now with myocolonus jerks and not seizures per neurology GI bleed, lower due to diverticular bleed s/p Rt hemicolectomy, POD#6 -surgery f/u appreciated -s/p colonoscopy and clipped -gi f/u appreciated -no further melena, all BRBPR cw diverticular LGIB and as per scope -cont icu monitoring -protonix drip -npo -ngt in place with tip in gastric fundus as reviewed xray and report -07/04 started on enteral feeding trial (Vital 1.2@20cc/hr, increase q8hr 10cc with goal 50cc) now at 30cc but having diarrhea with rectal tube in place -ivf -f/u h/h stable, hgb 9.1 -cont flagyl and rocephin as per ID Syncope, likely secondary acute blood loss vs neurologic event -echo showed ef 51%, nml LVSF, mod LVH -Reviewed CT head showing acute vs. subacute infarct -fall precautions -bedrest for now -cont ivf Acute blood loss anemia secondary #1 -f/u h/h, stable w/o further bleeding -transfuse to keep hgb >7 Fever r/o aspiration/leukocytosis -pt remains on the vent; pulmonary/CC mgmt appreciated -f/u cxr and abg -trend fever, 99.1 low grade -wbc uptrending 14.6<-17.5<-15.1 -f/u cultures -cont rocephin and added flagyl to cover anaerobes Accelerated HTN-uncontrolled, stable -cont lopressor and vasotec -added 1 dose hydralazine for sbp 170-200 this am Hypokalemia -replete and check mg; but K+ likely to increased after prbc transfusion as well DAVID- likely dehydration and acute blood loss, improved -avoid nephrotoxic agents -f/u bun/creat, stable -f/u UA DM-controlled -NISS with fsbs q6 -hold oral hypoglycemics while npo dvt/gi prophylaxis -scds, no anticoagulation secondary gib -ppi drip d/c planning -will need trach and peg then LT care since in vegetative state not waking up. Palliative consult pending to discuss further with family if agreeable to proceed with peg and trach as pt will likely then need LT care vs. readdress code status for comfort measures. If family agree to trach then Dr. Agosto would help arrange and consult surgery/CTS. TBD as we discussed
[2015-07-05] MEDS: PANTOPRAZOLE SODIUM 40 MG in SODIUM CHLORIDE 100 ML IVPB SCH ×2 (10:53→21:13)
[2015-07-05] MEDS: CEFTRIAXONE 2 GM in DEXTROSE 5%-WATER - 100 ML IVPB SCH (10:53)
[2015-07-05] MEDS: amLODIPine BESYLATE 5 MG TABLET (FP) PO SCH (12:18)
[2015-07-05] MEDS: LISINOPRIL 10 MG TABLET (FP) PO SCH (12:19)
[2015-07-05] MEDS: PROPOFOL 100 ML IVPB SCH (16:13)
[2015-07-05] MEDS: CHLORHEXIDINE GLUCONATE 4% CLEANSER FOR DECOLONIZATION TP SCH (21:13)
[2015-07-06] MEDS: INSULIN SLIDING SCALE (NOVOLOG) 1 VIAL SQ SCH ×5 (00:17→23:11)
[2015-07-06] MEDS: METRONIDAZOLE 500 MG PREMIXED 100 ML IVPB SCH ×3 (02:32→18:00)
[2015-07-06 06:45] LABS: BASOPHIL 0.4 % (0-2.0); EOSINOPHIL 4.6 % (0-4.5); MCH 29.7 pg (25.7-33.7); MCHC 33.4 g/dl (32.0-35.9); MEAN CELL VOLUME 88.9 fl (80-96); MEAN PLT VOLUME 8.1 fl (7.5-11.1); NEUTROPHILS 83.2 % (42.8-82.8); PLATELET COUNT 285 K/MM3 (134-434); RDW 14.9 % (11.9-15.9); WHITE BLOOD COUNT 18.4 K/mm3 (4.0-10.0)
[2015-07-06 07:17] LABS: CREATININE 0.9 mg/dL (0.6-1.3)
[2015-07-06 07:22] LABS: ALBUMIN 2.1 g/dl (3.5-5.0); ALK PHOS 54 U/L (50-136); ANION GAP 8 (8-16); BILIRUBIN,TOTAL 0.4 mg/dL (0.2-1.0); CO2 24 mmol/L (21-32); GLUCOSE,RANDOM 190 mg/dL (74-106); MAGNESIUM 1.8 mg/dL (1.8-2.4); SGOT/AST 22 U/L (15-37); SGPT/ALT 13 U/L (12-78); TOT PROT 5.4 g/dl (6.4-8.2)
[2015-07-06 07:25] LABS: ARTERIAL BLD GAS O2 SATURATION 99.7 % (90-98.9); ARTERIAL BLOOD GAS BASE EXCESS 0.8 meq/l (-2-2); ARTERIAL BLOOD GAS HCO3 24.3 meq/L (22-26); ARTERIAL BLOOD GAS pH 7.45 (7.35-7.45)
[2015-07-06 07:31] LABS: ART PUNCT SITE ARTERIAL LINE; PT. ON O2? YES
[2015-07-06 07:32] LABS: LPM/O2% 30%; MECH. VENT. ESPRIT; TYPE OF O2 MEC.VENT; VENT RATE 10; VT/PRESS 500
--- NOTE | 2015-07-06 09:02 | PN ---
Progress Note (short form) - Note Progress Note: Progress Note PULM/CCM Patient Name: CRUZ LEE Date of : 1940 Patient Status: Inpatient Attending Provider: Yolis Arthur Patient seen and examined in the ICU. Intubated on AC Mode of vent. Remains poorly responsive to noxious stimuli. No significant change in his poor mental status. Myoclonic jerks intermittently noted. (+) diarrhea Intake & Output 07/03/15 07/04/15 07/05/15 07/06/15 23:59 23:59 23:59 23:59 Intake Total 1163 2888.5 2985 Output Total 2300 1500 1400 700 Balance -1137 1388.5 1585 -700 Weight 182 lb 12.8 oz 181 lb 6.4 oz 182 lb 9.6 oz 182 lb 5.156 oz Last Vital Signs Temp Pulse Resp BP Pulse Ox 100.0 F H 96 H 22 111/86 100 07/06/15 06:00 07/06/15 06:00 07/06/15 07:20 07/06/15 06:00 07/05/15 22:15 Active Medications Amlodipine Besylate (Norvasc -) 5 mg PO DAILY KWAKU Last Admin: 07/05/15 12:18 Dose: 5 mg Chlorhexidine Gluconate (Hibiclens For Decolonization -) 1 applic TP HS KWAKU Last Admin: 07/05/15 21:13 Dose: 1 applic Hydralazine HCl (Apresoline Injection -) 10 mg IVPUSH Q6H PRN PRN Reason: HYPERTENSION- prn sbp > 160 Last Admin: 07/04/15 15:25 Dose: 10 mg Metronidazole (Flagyl 500mg Premixed Ivpb -) 100 mls @ 100 mls/hr IVPB Q8H-IV KWAKU Last Admin: 07/06/15 02:32 Dose: 100 mls/hr Propofol (Diprivan -) 100 mls @ 2.292 mls/hr IVPB TITR KWAKU; 5 MCG/KG/MIN PRN Reason: Protocol Last Admin: 07/05/15 16:13 Dose: Not Given Ceftriaxone Sodium 2 gm/ (Dextrose) 100 mls @ 200 mls/hr IVPB DAILY KWAKU Last Admin: 07/05/15 10:53 Dose: 200 mls/hr Pantoprazole Sodium 40 mg/ (Sodium Chloride) 100 mls @ 200 mls/hr IVPB BID KWAKU Last Admin: 07/05/15 21:13 Dose: 200 mls/hr Potassium Chloride/Sodium Chloride (1/2ns+20meq Kcl) 1,000 mls @ 75 mls/hr IV ASDIR [facility] Last Admin: 07/05/15 17:24 Dose: Not Given Insulin Aspart (Novolog Flexpen Sliding Scale -) 0 units SQ Q6HPO KWAKU PRN Reason: Protocol Last Admin: 07/06/15 06:46 Dose: Not Given Lisinopril (Prinivil -) 10 mg PO DAILY KWAKU Last Admin: 07/05/15 12:19 Dose: 10 mg Metoprolol Tartrate (Lopressor Injection -) 5 mg IVPUSH Q6H PRN PRN Reason: HYPERTENSION Last Admin: 07/05/15 16:30 Dose: 5 mg Ondansetron HCl (Zofran Injection -) 4 mg IVPB Q6H PRN PRN Reason: NAUSEA Gen: intubated, poorly repsonsive Heart: S1S2 Lung: decreased breath sounds at the bases Abd: soft, (+) BS Ext: no edema Laboratory Results - last 24 hr 06/30/15 07/05/15 07/05/15 15:15 12:05 16:29 WBC RBC Hgb Hct MCV MCHC RDW Plt Count MPV Neutrophils % Lymphocytes % Monocytes % Eosinophils % Basophils % Puncture Site ABG pH ABG pCO2 at Pt Temp ABG pO2 at Pt Temp ABG HCO3 ABG O2 Sat (Measured) ABG O2 Content ABG Base Excess Izaiah Test O2 Delivery Device Oxygen Flow Rate Vent Mode Vent Rate Mechanical Rate PEEP Pressure Support Vent Sodium Potassium Chloride Carbon Dioxide Anion Gap BUN Creatinine Creat Clearance w eGFR POC Glucometer 268.72458 205.21972 Random Glucose Calcium Phosphorus Magnesium Total Bilirubin AST ALT Alkaline Phosphatase Total Protein Albumin Blood Type O POSITIVE Antibody Screen Negative Crossmatch See Detail 07/06/15 07/06/15 07/06/15 00:15 06:15 06:22 WBC 18.4 H RBC 2.56 L Hgb 7.6 L D Hct 22.8 L MCV 88.9 MCHC 33.4 RDW 14.9 Plt Count 285 D MPV 8.1 Neutrophils % 83.2 H Lymphocytes % 6.6 L D Monocytes % 5.2 Eosinophils % 4.6 H Basophils % 0.4 Puncture Site ABG pH ABG pCO2 at Pt Temp ABG pO2 at Pt Temp ABG HCO3 ABG O2 Sat (Measured) ABG O2 Content ABG Base Excess Izaiah Test O2 Delivery Device Oxygen Flow Rate Vent Mode Vent Rate Mechanical Rate PEEP Pressure Support Vent Sodium 141 Potassium 3.6 Chloride 109 H Carbon Dioxide 24 Anion Gap 8 BUN 13 D Creatinine 0.9 Creat Clearance w eGFR > 60 POC Glucometer 232.81606 181.81799 Random Glucose 190 H Calcium 8.0 L Phosphorus 3.0 Magnesium 1.8 Total Bilirubin 0.4 D AST 22 D ALT 13 Alkaline Phosphatase 54 Total Protein 5.4 L Albumin 2.1 L Blood Type Antibody Screen Crossmatch 07/06/15 07:25 WBC RBC Hgb Hct MCV MCHC RDW Plt Count MPV Neutrophils % Lymphocytes % Monocytes % Eosinophils % Basophils % Puncture Site Arterial line ABG pH 7.45 ABG pCO2 at Pt Temp 35.8 D ABG pO2 at Pt Temp 137.0 H D ABG HCO3 24.3 ABG O2 Sat (Measured) 99.7 H* ABG O2 Content 12.2 L ABG Base Excess 0.8 Izaiah Test Not applicable O2 Delivery Device Mec.vent Oxygen Flow Rate 30% Vent Mode A/c Vent Rate 10 Mechanical Rate Esprit PEEP 5.0 Pressure Support Vent 500 Sodium Potassium Chloride Carbon Dioxide Anion Gap BUN Creatinine Creat Clearance w eGFR POC Glucometer Random Glucose Calcium Phosphorus Magnesium Total Bilirubin AST ALT Alkaline Phosphatase Total Protein Albumin Blood Type Antibody Screen Crossmatch CXR: No gross change 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
[2015-07-06] MEDS: LISINOPRIL 10 MG TABLET (FP) PO SCH (09:32)
[2015-07-06] MEDS: amLODIPine BESYLATE 5 MG TABLET (FP) PO SCH (09:32)
[2015-07-06] MEDS: CEFTRIAXONE 2 GM in DEXTROSE 5%-WATER - 100 ML IVPB SCH (09:32)
--- NOTE | 2015-07-06 09:59 | PN ---
Progress Note (short form) - Note Progress Note: Pt off sedation on the vent. Pt not waking up. Discussed with RN fever 100 rectally at 6am. No further rectal bleeding. Having diarrhea. Continuing enteral feeds yesterday. BP remains elevated. Awaiting palliative consult to discuss with family if will proceed with trach and peg since pt will need LT care as he remains unresponsive with no improvement in mental status. Objective Last Vital Signs Temp Pulse Resp BP Pulse Ox 100.0 F H 99 H 18 136/69 100 07/06/15 06:00 07/06/15 08:00 07/06/15 08:00 07/06/15 08:00 07/05/15 22:15 Physical Examination Constitutional: Yes: Well Nourished, No Distress, sedated on the vent HENT: Yes: Atraumatic, Normocephalic, Other (pallor, no scleral icterus. Facial/ lip laceration, no bleeding) Cardiovascular: Yes: Regular Rate and Rhythm, S1, S2 Respiratory: Yes: CTA Bilaterally. No: Rales, Rhonchi, Wheezes Gastrointestinal: Yes: Soft, +navi c/d/i, +bowel sounds, less distended Extremities: No: Cyanosis, Erythema, myoclonus jerks Edema: No Integumentary: No: Rash Neurological: Yes: off sedation on the vent, remains unresponsive even to painful stimuli, minimal corneals Labs: CBCD WBC 18.4 K/mm3 (4.0-10.0) H 07/06/15 06:15 RBC 2.56 M/mm3 (4.00-5.60) L 07/06/15 06:15 Hgb 7.6 GM/dL (11.7-16.9) L D 07/06/15 06:15 Hct 22.8 % (35.4-49) L 07/06/15 06:15 MCV 88.9 fl (80-96) 07/06/15 06:15 MCHC 33.4 g/dl (32.0-35.9) 07/06/15 06:15 RDW 14.9 % (11.9-15.9) 07/06/15 06:15 Plt Count 285 K/MM3 (134-434) D 07/06/15 06:15 MPV 8.1 fl (7.5-11.1) 09/08/15 06:15 CMP Sodium 141 mmol/L (136-145) 07/06/15 06:15 Potassium 3.6 mmol/L (3.5-5.1) 07/06/15 06:15 Chloride 109 mmol/L (98-107) H 07/06/15 06:15 Carbon Dioxide 24 mmol/L (21-32) 07/06/15 06:15 Anion Gap 8 (8-16) 07/06/15 06:15 BUN 13 mg/dL (7-18) D 07/06/15 06:15 Creatinine 0.9 mg/dL (0.6-1.3) 07/06/15 06:15 Creat Clearance w eGFR > 60 (>60) 07/06/15 06:15 Random Glucose 190 mg/dL (74-106) H 07/06/15 06:15 Calcium 8.0 mg/dL (8.5-10.1) L 07/06/15 06:15 Total Bilirubin 0.4 mg/dL (0.2-1.0) D 07/06/15 06:15 AST 22 U/L (15-37) D 07/06/15 06:15 ALT 13 U/L (12-78) 07/06/15 06:15 Alkaline Phosphatase 54 U/L (50-136) 07/06/15 06:15 Total Protein 5.4 g/dl (6.4-8.2) L 07/06/15 06:15 Albumin 2.1 g/dl (3.5-5.0) L 07/06/15 06:15 CARDIAC ENZYMES Creatine Kinase 62 IU/L (38-174) 06/28/15 09:35 Troponin I 0.11 ng/ml (0.03-0.5) D 06/28/15 09:35 Microbiology 07/02/15 18:00 Blood - Peripheral Venous Blood Culture - Preliminary NO GROWTH OBTAINED AFTER 72 HOURS, INCUBATION TO CONTINUE FOR 2 DAYS. 07/02/15 18:00 Blood - Peripheral Venous Blood Culture - Preliminary NO GROWTH OBTAINED AFTER 72 HOURS, INCUBATION TO CONTINUE FOR 2 DAYS. 06/28/15 09:32 Blood - Peripheral Venous Blood Culture - Final NO GROWTH AFTER 5 DAYS INCUBATION 06/28/15 09:32 Blood - Peripheral Venous Blood Culture - Final NO GROWTH AFTER 5 DAYS INCUBATION 06/28/15 17:30 Sputum - Endotrachea Suction/Ventilator Gram Stain - Final 06/28/15 17:30 Sputum - Endotrachea Suction/Ventilator Sputum Culture - Final NORMAL RESPIRATORY ARMAND 06/27/15 20:30 Urine - Urine Schwartz Urine Culture - Final NO GROWTH OBTAINED 06/28/15 10:00 Urine For Antigen Detection Legionella Antigen - Final 06/28/15 10:00 Urine For Antigen Detection Streptococcus pneumoniae Antigen (M - Final Current Medications Generic Name Dose Route Start Last Admin Trade Name Freq PRN Reason Stop Dose Admin Amlodipine Besylate 5 mg 07/05/15 10:00 07/06/15 09:32 Norvasc - PO 5 mg DAILY KWAKU Administration Chlorhexidine Gluconate 1 applic 06/29/15 22:00 07/05/15 21:13 Hibiclens For Decolonization - TP 1 applic HS KWAKU Administration Hydralazine HCl 10 mg 07/04/15 13:42 07/04/15 15:25 Apresoline Injection - IVPUSH 10 mg Q6H PRN Administration HYPERTENSION- prn sbp > 160 Metronidazole 100 mls @ 100 mls/hr 06/29/15 18:00 07/06/15 09:32 Flagyl 500mg Premixed Ivpb - IVPB 100 mls/hr Q8H-IV KWAKU Administration Propofol 100 mls @ 2.292 mls/hr 06/29/15 16:02 07/05/15 16:13 Diprivan - IVPB Not Given TITR KWAKU Protocol 5 MCG/KG/MIN Ceftriaxone Sodium 2 gm/ 100 mls @ 200 mls/hr 06/30/15 10:00 07/06/15 09:32 Dextrose IVPB 200 mls/hr DAILY KWAKU Administration Pantoprazole Sodium 40 mg/ 100 mls @ 200 mls/hr 06/29/15 22:00 07/05/15 21:13 Sodium Chloride IVPB 200 mls/hr BID KWAKU Administration Potassium Chloride/Sodium Chloride 1,000 mls @ 75 mls/hr 06/30/15 13:30 17:24 1/2ns+20meq Kcl IV Not Given ASDIR KWAKU Insulin Aspart 0 units 06/29/15 18:00 07/06/15 06:46 Novolog Flexpen Sliding Scale - SQ Not Given Q6HPO KWAKU Protocol Lisinopril 10 mg 07/05/15 10:00 07/06/15 09:32 Prinivil - PO 10 mg DAILY KWAKU Administration Metoprolol Tartrate 5 mg 07/02/15 19:04 07/05/15 16:30 Lopressor Injection - IVPUSH 5 mg Q6H PRN Administration HYPERTENSION Ondansetron HCl 4 mg 06/29/15 16:02 Zofran Injection - IVPB Q6H PRN NAUSEA A/P This is a 75yo M with PMHx HTN, DM and inguinal hernia who presented with dark tarry stool and BRBPR with episode of syncope, now s/p rt hemicolectomy and unresponsive on the vent AMS r/o anoxic brain injury r/o CVA, now in ?vegetative state -remains intubated on the vent, not sedated but not waking up -pulmonary/critical care mgmt appreciated -f/u abg and cxr -neurology f/u appreciated -pt now with myocolonus jerks and not seizures per neurology -will need trach and peg, tbd and will need to start conversation with family; palliative consulted as well since will require LT care since remains unresponsive and prognosis of improving and waking up poor GI bleed, lower due to diverticular bleed s/p Rt hemicolectomy, POD#7 -surgery f/u appreciated -s/p colonoscopy and clipped -gi f/u appreciated -no further melena, all BRBPR cw diverticular LGIB and as per scope -cont icu monitoring -protonix drip -npo -ngt in place with tip in gastric fundus as reviewed xray and report -07/04 started on enteral feeding trial (Vital 1.2@20cc/hr, increase q8hr 10cc with goal 50cc) now at 30cc but having diarrhea with rectal tube in place -ivf -f/u h/h dropped to 7.6<--9.1, repeat today before transfusing -cont flagyl and rocephin as per ID Syncope, likely secondary acute blood loss vs neurologic event -echo showed ef 51%, nml LVSF, mod LVH -Reviewed CT head showing acute vs. subacute infarct -fall precautions -bedrest for now -cont ivf Acute blood loss anemia secondary #1 -f/u h/h, stable w/o further bleeding -transfuse to keep hgb >7 -repeat h/h Fever r/o aspiration/leukocytosis -pt remains on the vent; pulmonary/CC mgmt appreciated -f/u cxr and abg -trend fever, 99.1 low grade -wbc uptrending 18.4<--14.6<-17.5<-15.1 -f/u cultures -cont rocephin and added flagyl to cover anaerobes Accelerated HTN- better controlled, improving -cont lopressor and vasotec -added 1 dose hydralazine for sbp 170-200 this am Hypokalemia -replete and check mg; but K+ likely to increased after prbc transfusion as well DAVID- likely dehydration and acute blood loss, improved -avoid nephrotoxic agents -f/u bun/creat, stable -f/u UA DM-controlled -NISS with fsbs q6 -hold oral hypoglycemics while npo dvt/gi prophylaxis -scds, no anticoagulation secondary gib -ppi drip d/c planning -will need trach and peg then LT care since in vegetative state not waking up. Palliative consult pending to discuss further with family if agreeable to proceed with peg and trach as pt will likely then need LT care vs. readdress code status for comfort measures. If family agree to trach then Dr. Agosto would help arrange and consult surgery/CTS. TBD as we discussed
[2015-07-06] MEDS: PANTOPRAZOLE SODIUM 40 MG in SODIUM CHLORIDE 100 ML IVPB SCH ×2 (10:12→22:52)
--- NOTE | 2015-07-06 10:39 | PN ---
Progress Note (short form) - Note Progress Note: Neurology Pt off sedation on the vent and not responsive. Is overbreathing the vent, minimal myoclonic jerks as would be expected. No significant improvement in mental status. Objective Last Vital Signs Temp Pulse Resp BP Pulse Ox 100.0 F H 99 H 18 136/69 100 07/06/15 06:00 07/06/15 08:00 07/06/15 08:00 07/06/15 08:00 07/05/15 22:15 Physical Examination Constitutional: Yes: Well Nourished, No Distress, sedated on the vent HENT: Yes: Atraumatic, Normocephalic, Other (pallor, no scleral icterus. Facial/ lip laceration, no bleeding) Cardiovascular: Yes: Regular Rate and Rhythm, S1, S2 Respiratory: Yes: CTA Bilaterally. No: Rales, Rhonchi, Wheezes Gastrointestinal: Yes: Soft, +navi c/d/i, +bowel sounds, less distended Extremities: No: Cyanosis, Erythema, myoclonus jerks Edema: No Integumentary: No: Rash Neurological: Yes: off sedation on the vent, remains unresponsive even to painful stimuli, minimal corneals Labs: CBCD WBC 18.4 K/mm3 (4.0-10.0) H 07/06/15 06:15 RBC 2.56 M/mm3 (4.00-5.60) L 07/06/15 06:15 Hgb 7.6 GM/dL (11.7-16.9) L D 07/06/15 06:15 Hct 22.8 % (35.4-49) L 07/06/15 06:15 MCV 88.9 fl (80-96) 07/06/15 06:15 MCHC 33.4 g/dl (32.0-35.9) 07/06/15 06:15 RDW 14.9 % (11.9-15.9) 07/06/15 06:15 Plt Count 285 K/MM3 (134-434) D 07/06/15 06:15 MPV 8.1 fl (7.5-11.1) 07/06/15 06:15 Current Medications Generic Name Dose Route Start Last Admin Trade Name Freq PRN Reason Stop Dose Admin Amlodipine Besylate 5 mg 07/05/15 10:00 07/06/15 09:32 Norvasc - PO 5 mg DAILY KWAKU Administration Chlorhexidine Gluconate 1 applic 06/29/15 22:00 07/05/15 21:13 Hibiclens For Decolonization - TP 1 applic HS KWAKU Administration Hydralazine HCl 10 mg 07/04/15 13:42 07/04/15 15:25 Apresoline Injection - IVPUSH 10 mg Q6H PRN Administration HYPERTENSION- prn sbp > 160 Metronidazole 100 mls @ 100 mls/hr 06/29/15 18:00 07/06/15 09:32 Flagyl 500mg Premixed Ivpb - IVPB 100 mls/hr Q8H-IV KWAKU Administration Propofol 100 mls @ 2.292 mls/hr 06/29/15 16:02 07/05/15 16:13 Diprivan - IVPB Not Given TITR KWAKU Protocol 5 MCG/KG/MIN Ceftriaxone Sodium 2 gm/ 100 mls @ 200 mls/hr 06/30/15 10:00 07/06/15 09:32 Dextrose IVPB 200 mls/hr DAILY KWAKU Administration Pantoprazole Sodium 40 mg/ 100 mls @ 200 mls/hr 06/29/15 22:00 07/05/15 21:13 Sodium Chloride IVPB 200 mls/hr BID KWAKU Administration Potassium Chloride/Sodium Chloride 1,000 mls @ 75 mls/hr 06/30/15 13:30 17:24 1/2ns+20meq Kcl IV Not Given ASDIR KWAKU Insulin Aspart 0 units 06/29/15 18:00 07/06/15 06:46 Novolog Flexpen Sliding Scale - SQ Not Given Q6HPO KWAKU Protocol Lisinopril 10 mg 07/05/15 10:00 07/06/15 09:32 Prinivil - PO 10 mg DAILY KWAKU Administration Metoprolol Tartrate 5 mg 07/02/15 19:04 07/05/15 16:30 Lopressor Injection - IVPUSH 5 mg Q6H PRN Administration HYPERTENSION Ondansetron HCl 4 mg 06/29/15 16:02 Zofran Injection - IVPB Q6H PRN NAUSEA Imagin07/02/15 NCHCT with L posterior infarct A/P This is a 75yo M with PMHx HTN, DM and inguinal hernia who presented with dark tarry stool and BRBPR with episode of syncope, now s/p rt hemicolectomy and unresponsive on the vent possibly anoxic brain injury 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 local [employer] prognosis may be poor given lack of improvement thus far and now off sedation but mental status still obtunded. Consider palliative care.
[2015-07-06] MEDS: SODIUM CHLORIDE 0.45%/POT 1,000 ML IV SCH (14:54)
[2015-07-06] MEDS: CHLORHEXIDINE GLUCONATE 4% CLEANSER FOR DECOLONIZATION TP SCH (22:51)
[2015-07-07] MEDS: INSULIN SLIDING SCALE (NOVOLOG) 1 VIAL SQ SCH ×4 (00:05→17:21)
[2015-07-07 07:09] LABS: BASOPHIL 0.5 % (0-2.0); EOSINOPHIL 4.5 % (0-4.5); MCH 29.4 pg (25.7-33.7); MCHC 33.6 g/dl (32.0-35.9); MEAN CELL VOLUME 87.6 fl (80-96); NEUTROPHILS 83.4 % (42.8-82.8); PLATELET COUNT 248 K/MM3 (134-434); RDW 14.9 % (11.9-15.9); WHITE BLOOD COUNT 17.8 K/mm3 (4.0-10.0)
[2015-07-07 07:36] LABS: ANION GAP 8 (8-16); CO2 24 mmol/L (21-32); GLUCOSE,RANDOM 228 mg/dL (74-106); PHOSPHOROUS 2.8 mg/dL (2.5-4.9); SGOT/AST 29 U/L (15-37)
[2015-07-07 07:39] LABS: ALK PHOS 54 U/L (50-136); BILIRUBIN,TOTAL 0.3 mg/dL (0.2-1.0); CALCIUM 7.8 mg/dL (8.5-10.1); CREATININE 0.6 mg/dL (0.6-1.3); MAGNESIUM 1.8 mg/dL (1.8-2.4); SGPT/ALT 19 U/L (12-78); TOT PROT 5.2 g/dl (6.4-8.2)
[2015-07-07] MEDS: hydrALAZINE HCL 20 MG/ML VIAL IVPUSH PRN ×2 (08:12→17:10)
--- NOTE | 2015-07-07 08:31 | PN ---
Progress Note (short form) - Note Progress Note: Progress Note PULM/CCM Patient Name: CRUZ LEE Date of : 1940 Patient Status: Inpatient Attending Provider: Yolis Arthur Patient seen and examined in the ICU. Intubated on AC Mode of vent. Remains poorly responsive to noxious stimuli. Currently off all sedation. No significant change in his poor mental status. Myoclonic jerks intermittently noted. Intake & Output 07/04/15 07/05/15 07/06/15 07/07/15 23:59 23:59 23:59 23:59 Intake Total 2888.5 2985 1475 945 Output Total 1500 1400 2425 850 Balance 1388.5 1585 -950 95 Weight 181 lb 6.4 oz 182 lb 9.6 oz 182 lb 5.156 oz 182 lb 8.684 oz Last Vital Signs Temp Pulse Resp BP Pulse Ox 98.6 F 110 H 25 H 176/74 100 07/07/15 06:00 07/07/15 08:22 07/07/15 08:00 07/07/15 08:22 07/06/15 20:06 Active Medications Amlodipine Besylate (Norvasc -) 5 mg PO DAILY [facility] Last Admin: 07/06/15 09:32 Dose: 5 mg Chlorhexidine Gluconate (Hibiclens For Decolonization -) 1 applic TP HS [facility] Last Admin: 07/06/15 22:51 Dose: 1 applic Hydralazine HCl (Apresoline Injection -) 10 mg IVPUSH Q6H PRN PRN Reason: HYPERTENSION- prn sbp > 160 Last Admin: 07/07/15 08:12 Dose: 10 mg Ceftriaxone Sodium 2 gm/ (Dextrose) 100 mls @ 200 mls/hr IVPB DAILY [facility] Last Admin: 07/06/15 09:32 Dose: 200 mls/hr Pantoprazole Sodium 40 mg/ (Sodium Chloride) 100 mls @ 200 mls/hr IVPB BID [facility] Last Admin: 07/06/15 22:52 Dose: 200 mls/hr Potassium Chloride/Sodium Chloride (1/2ns+20meq Kcl) 1,000 mls @ 75 mls/hr IV ASDIR [facility] Last Admin: 07/06/15 14:54 Dose: 75 mls/hr Insulin Aspart (Novolog Flexpen Sliding Scale -) 0 units SQ Q6HPO [facility]AKU PRN Reason: Protocol Last Admin: 07/07/15 06:50 Dose: 2 unit Lisinopril (Prinivil -) 10 mg PO DAILY [facility] Last Admin: 07/06/15 09:32 Dose: 10 mg Metoprolol Tartrate (Lopressor Injection -) 5 mg IVPUSH Q6H PRN PRN Reason: HYPERTENSION Last Admin: 07/05/15 16:30 Dose: 5 mg Ondansetron HCl (Zofran Injection -) 4 mg IVPB Q6H PRN PRN Reason: NAUSEA Gen: intubated, poorly repsonsive Heart: S1S2 Lung: decreased breath sounds at the bases Abd: soft, (+) BS Ext: no edema Laboratory Results - last 24 hr 07/03/15 07/06/15 07/06/15 05:15 12:11 19:20 WBC RBC Hgb Hct MCV MCHC RDW Plt Count MPV Neutrophils % Lymphocytes % Monocytes % Eosinophils % Basophils % Sodium Potassium Chloride Carbon Dioxide Anion Gap BUN Creatinine Creat Clearance w eGFR POC Glucometer 274.49270 270.30919 Random Glucose Calcium Phosphorus Magnesium Total Bilirubin AST ALT Alkaline Phosphatase Total Protein Albumin Hepatitis C Ab (EIA) <0.1 07/06/15 07/07/15 07/07/15 22:46 05:20 06:35 WBC 17.8 H RBC 3.03 L Hgb 8.9 L D Hct 26.5 L D MCV 87.6 MCHC 33.6 RDW 14.9 Plt Count 248 MPV 8.0 Neutrophils % 83.4 H Lymphocytes % 6.9 L Monocytes % 4.7 Eosinophils % 4.5 Basophils % 0.5 Sodium 141 Potassium 3.8 Chloride 109 H Carbon Dioxide 24 Anion Gap 8 BUN 10 D Creatinine 0.6 D Creat Clearance w eGFR > 60 POC Glucometer 282.09520 240.80236 Random Glucose 228 H Calcium 7.8 L Phosphorus 2.8 Magnesium 1.8 Total Bilirubin 0.3 D AST 29 D ALT 19 D Alkaline Phosphatase 54 Total Protein 5.2 L Albumin 2.0 L Hepatitis C Ab (EIA) CXR: Rotated / No gross change IMP: Acute Brainstem CVA S/P Right Hemicoletomy due to Acute Lower Diverticular GI Bleed Acute Blood Loss Anemia Acute Respiratory Failure Pneumonia likely aspiration HTN DM CKD PLAN: - BP control - monitor CBC, coags - transfuse as needed - Replete lytes - protonix - IV antibiotics per ID - Enteral feeds as tolerated - DVT/GI prophylaxis - Anti-platelets are on hold due to severe bleeding that required surgery and the fact the his H&H is slowly trending down - Need GOC discussion with family as his overall prognosis for meaningful recovery is grave Dr Agosto CCTime 35"
[2015-07-07] MEDS: LISINOPRIL 10 MG TABLET (FP) PO SCH (09:39)
[2015-07-07] MEDS: amLODIPine BESYLATE 5 MG TABLET (FP) PO SCH (09:39)
[2015-07-07] MEDS: CEFTRIAXONE 2 GM in DEXTROSE 5%-WATER - 100 ML IVPB SCH (09:40)
--- NOTE | 2015-07-07 10:12 | PN ---
Progress Note (short form) - Note Progress Note: Pt remains off sedation on the vent, but not waking up. Discussed with RN fever 99 rectally overnight. No further rectal bleeding. Still having diarrhea. Continuing enteral feeds. BP remains elevated. Awaiting palliative consult to discuss with family if will proceed with trach and peg since pt will need LT care as he remains unresponsive with no improvement in mental status. Objective Last Vital Signs Temp Pulse Resp BP Pulse Ox 98.6 F 110 H 24 167/75 100 07/07/15 06:00 07/07/15 08:22 07/07/15 09:35 07/07/15 09:35 07/07/15 09:00 Physical Examination Constitutional: Yes: Well Nourished, No Distress, sedated on the vent HENT: Yes: Atraumatic, Normocephalic, Other (pallor, no scleral icterus. Facial/ lip laceration, no bleeding) Cardiovascular: Yes: Regular Rate and Rhythm, S1, S2 Respiratory: Yes: CTA Bilaterally. No: Rales, Rhonchi, Wheezes Gastrointestinal: Yes: Soft, +navi c/d/i, +bowel sounds, less distended Extremities: No: Cyanosis, Erythema, myoclonus jerks Edema: No Integumentary: No: Rash Neurological: Yes: off sedation on the vent, remains unresponsive even to painful stimuli, minimal corneals Labs: CBCD WBC 17.8 K/mm3 (4.0-10.0) H 07/07/15 05:20 RBC 3.03 M/mm3 (4.00-5.60) L 07/07/15 05:20 Hgb 8.9 GM/dL (11.7-16.9) L D 07/07/15 05:20 Hct 26.5 % (35.4-49) L D 07/07/15 05:20 MCV 87.6 fl (80-96) 07/07/15 05:20 MCHC 33.6 g/dl (32.0-35.9) 07/07/15 05:20 RDW 14.9 % (11.9-15.9) 07/07/15 05:20 Plt Count 248 K/MM3 (134-434) 07/07/15 05:20 MPV 8.0 fl (7.5-11.1) 07/07/15 05:20 CMP Sodium 141 mmol/L (136-145) 07/07/15 05:20 Potassium 3.8 mmol/L (3.5-5.1) 07/07/15 05:20 Chloride 109 mmol/L (98-107) H 07/07/15 05:20 Carbon Dioxide 24 mmol/L (21-32) 07/07/15 05:20 Anion Gap 8 (8-16) 07/07/15 05:20 BUN 10 mg/dL (7-18) D 07/07/15 05:20 Creatinine 0.6 mg/dL (0.6-1.3) D 07/07/15 05:20 Creat Clearance w eGFR > 60 (>60) 07/07/15 05:20 Random Glucose 228 mg/dL (74-106) H 07/07/15 05:20 Calcium 7.8 mg/dL (8.5-10.1) L 07/07/15 05:20 Total Bilirubin 0.3 mg/dL (0.2-1.0) D 07/07/15 05:20 AST 29 U/L (15-37) D 07/07/15 05:20 ALT 19 U/L (12-78) D 07/07/15 05:20 Alkaline Phosphatase 54 U/L (50-136) 07/07/15 05:20 Total Protein 5.2 g/dl (6.4-8.2) L 07/07/15 05:20 Albumin 2.0 g/dl (3.5-5.0) L 07/07/15 05:20 CARDIAC ENZYMES Creatine Kinase 62 IU/L (38-174) 06/28/15 09:35 Troponin I 0.11 ng/ml (0.03-0.5) D 06/28/15 09:35 ABG Results ABG pH 7.45 (7.35-7.45) 07/06/15 07:25 ABG pCO2 at Pt Temp 35.8 mmHg (35-45) D 07/06/15 07:25 ABG pO2 at Pt Temp 137.0 mmHg (70-100) H D 07/06/15 07:25 ABG HCO3 24.3 meq/L (22-26) 07/06/15 07:25 ABG O2 Sat (Measured) 99.7 % (90-98.9) H* 07/06/15 07:25 ABG O2 Content 12.2 % vol (15-22) L 07/06/15 07:25 ABG Base Excess 0.8 meq/l (-2-2) 07/06/15 07:25 Microbiology 07/02/15 18:00 Blood - Peripheral Venous Blood Culture - Preliminary NO GROWTH OBTAINED AFTER 96 HOURS, INCUBATION TO CONTINUE FOR 1 DAYS. 07/02/15 18:00 Blood - Peripheral Venous Blood Culture - Preliminary NO GROWTH OBTAINED AFTER 96 HOURS, INCUBATION TO CONTINUE FOR 1 DAYS. 06/28/15 09:32 Blood - Peripheral Venous Blood Culture - Final NO GROWTH AFTER 5 DAYS INCUBATION 06/28/15 09:32 Blood - Peripheral Venous Blood Culture - Final NO GROWTH AFTER 5 DAYS INCUBATION 06/28/15 17:30 Sputum - Endotrachea Suction/Ventilator Gram Stain - Final 06/28/15 17:30 Sputum - Endotrachea Suction/Ventilator Sputum Culture - Final NORMAL RESPIRATORY ARMAND 06/27/15 20:30 Urine - Urine Schwartz Urine Culture - Final NO GROWTH OBTAINED 06/28/15 10:00 Urine For Antigen Detection Legionella Antigen - Final 06/28/15 10:00 Urine For Antigen Detection Streptococcus pneumoniae Antigen (M - Final Current Medications Generic Name Dose Route Start Last Admin Trade Name Freq PRN Reason Stop Dose Admin Amlodipine Besylate 5 mg 07/05/15 10:00 07/07/15 09:39 Norvasc - PO 5 mg DAILY [facility] Administration Chlorhexidine Gluconate 1 applic 06/29/15 22:00 07/06/15 22:51 Hibiclens For Decolonization - TP 1 applic HS [facility] Administration Hydralazine HCl 10 mg 07/04/15 13:42 07/07/15 08:12 Apresoline Injection - IVPUSH 10 mg Q6H PRN Administration HYPERTENSION- prn sbp > 160 Pantoprazole Sodium 40 mg/ 100 mls @ 200 mls/hr 06/29/15 22:00 07/06/15 22:52 Sodium Chloride IVPB 200 mls/hr BID [facility]AK[facility] Administration Potassium Chloride/Sodium Chloride 1,000 mls @ 75 mls/hr 06/30/15 13:30 14:54 1/2ns+20meq Kcl IV 75 mls/hr ASDIR [facility] Administration Insulin Aspart 0 units 06/29/15 18:00 07/07/15 06:50 Novolog Flexpen Sliding Scale - SQ 2 unit Q6HPO K[facility]AKU Administration Protocol Lisinopril 10 mg 07/05/15 10:00 07/07/15 09:39 Prinivil - PO 10 mg DAILY [facility] Administration Metoprolol Tartrate 5 mg 07/02/15 19:04 07/05/15 16:30 Lopressor Injection - IVPUSH 5 mg Q6H PRN Administration HYPERTENSION Ondansetron HCl 4 mg 06/29/15 16:02 Zofran Injection - IVPB Q6H PRN NAUSEA A/P This is a 75yo M with PMHx HTN, DM and inguinal hernia who presented with dark tarry stool and BRBPR with episode of syncope, now s/p rt hemicolectomy and unresponsive on the vent AMS-multifactorial secondary anoxic brain injury, 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, not seizures -remains intubated on the vent, not sedated but not waking up -pulmonary/critical care mgmt appreciated -f/u abg and cxr -neurology f/u appreciated -pt now with myocolonus jerks and not seizures per neurology -will need trach and peg, tbd and will need to start conversation with family; palliative consulted as well since will require LT care since remains unresponsive and prognosis of improving and waking up poor GI bleed, lower due to diverticular bleed s/p Rt hemicolectomy, POD#8 -surgery f/u appreciated -s/p colonoscopy and clipped -gi f/u appreciated -no further melena, all BRBPR cw diverticular LGIB and as per scope -cont icu monitoring -protonix drip -npo -ngt in place with tip in gastric fundus as reviewed xray and report -07/04 started on enteral feeding trial (Vital 1.2@20cc/hr, increase q8hr 10cc with goal 50cc) now at 30cc but having diarrhea with rectal tube in place -ivf -f/u h/h 8.9/26.5, stable -s/p flagyl and rocephin as per ID Syncope, likely secondary acute blood loss vs neurologic event -echo showed ef 51%, nml LVSF, mod LVH -Reviewed CT head showing acute vs. subacute infarct -fall precautions -bedrest for now -cont ivf Acute blood loss anemia secondary #1 -f/u h/h, stable w/o further bleeding -transfuse to keep hgb >7 -repeat h/h Fever r/o aspiration/leukocytosis -pt remains on the vent; pulmonary/CC mgmt appreciated -f/u cxr and abg -trend fever, 99.1 low grade -wbc downtrending 17.8<-18.4<--14.6<-17.5<-15.1 -f/u cultures -cont rocephin and added flagyl to cover anaerobes Accelerated HTN- better controlled, improving -cont lopressor and vasotec -hydralazine prn Hypokalemia -replete and check mg; but K+ likely to increased after prbc transfusion as well DAVID- likely dehydration and acute blood loss, improved -avoid nephrotoxic agents -f/u bun/creat, stable -f/u UA DM-controlled -NISS with fsbs q6 -hold oral hypoglycemics while npo dvt/gi prophylaxis -scds, no anticoagulation secondary gib -ppi drip d/c planning -will need trach and peg then LT care since in vegetative state not waking up. Palliative consult pending to discuss further with family if agreeable to proceed with peg and trach as pt will likely then need LT care vs. readdress code status for comfort measures. If family agree to trach then Dr. Agosto would help arrange and consult surgery/CTS. TBD as we discussed
[2015-07-07] MEDS: PANTOPRAZOLE SODIUM 40 MG in SODIUM CHLORIDE 100 ML IVPB SCH ×2 (10:49→21:40)
--- NOTE | 2015-07-07 12:38 | WOUND ---
Wound Assessment [facility] Reason for visit: Wound Assessment Request for consultation: by [facility] Interdisciplinary Wound Care Team Initial Encounter: No Previous Encounter: Yes - History of Present Illness This is a 75yo M with PMHx HTN, DM and inguinal hernia who presented with dark tarry stool and BRBPR with episode of syncope, now s/p rt hemicolectomy and unresponsive on the vent. Patient is presently being treated for: 1. AMS-multifactorial secondary anoxic brain injury, 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, not seizures; remains intubated on the vent, not sedated but not waking up 2. GI bleed, lower due to diverticular bleed s/p Rt hemicolectomy, POD#8 3. Syncope, likely secondary acute blood loss vs neurologic event 4. Acute blood loss anemia secondary GI bleed 5. Fever r/o aspiration/leukocytosis 6. Accelerated HTN- better controlled, improving 7. Hypokalemia 8. DAVID 9. DM Past Medical History Cardio/Vascular HTN Endocrine Diabetes Mellitus Past Surgical History Past Surgical History Hernia Repair Social History Smoking history Never smoked Have you smoked in the past 12 No months Hx Alcohol Use No Current Medications Generic Name Dose Route Start Last Admin Trade Name Freq PRN Reason Stop Dose Admin Amlodipine Besylate 5 mg 07/05/15 10:00 07/07/15 09:39 Norvasc - PO 5 mg DAILY [facility] Administration Chlorhexidine Gluconate 1 applic 06/29/15 22:00 07/06/15 22:51 Hibiclens For Decolonization - TP 1 applic HS [facility] Administration Hydralazine HCl 10 mg 07/04/15 13:42 07/07/15 08:12 Apresoline Injection - IVPUSH 10 mg Q6H PRN Administration HYPERTENSION- prn sbp > 160 Pantoprazole Sodium 40 mg/ 100 mls @ 200 mls/hr 06/29/15 22:00 07/07/15 10:49 Sodium Chloride IVPB 200 mls/hr BID [facility] Administration Potassium Chloride/Sodium Chloride 1,000 mls @ 75 mls/hr 06/30/15 13:30 14:54 1/2ns+20meq Kcl IV 75 mls/hr ASDIR [facility] Administration Insulin Aspart 0 units 06/29/15 18:00 07/07/15 12:27 Novolog Flexpen Sliding Scale - SQ 6 unit Q6HPO [facility]U Administration Protocol Lisinopril 10 mg 07/05/15 10:00 07/07/15 09:39 Prinivil - PO 10 mg DAILY [facility] Administration Metoprolol Tartrate 5 mg 07/02/15 19:04 07/05/15 16:30 Lopressor Injection - IVPUSH 5 mg Q6H PRN Administration HYPERTENSION Ondansetron HCl 4 mg 06/29/15 16:02 Zofran Injection - IVPB Q6H PRN NAUSEA Allergies Allergy/AdvReac Type Severity Reaction Status Date / Time No Known Allergies Allergy Verified 06/26/15 21:31 Physical Exam - Objective Last Vital Signs Temp Pulse Resp BP Pulse Ox 98.7 F 118 H 21 189/76 99 07/07/15 10:00 07/07/15 12:00 07/07/15 12:00 07/07/15 12:00 07/07/15 11:45 Laboratory Last Values WBC 17.8 K/mm3 (4.0-10.0) H 07/07/15 05:20 Corrected WBC (auto) Cancelled 06/26/15 21:50 RBC 3.03 M/mm3 (4.00-5.60) L 07/07/15 05:20 Hgb 8.9 GM/dL (11.7-16.9) L D 07/07/15 05:20 Hct 26.5 % (35.4-49) L D 07/07/15 05:20 MCV 87.6 fl (80-96) 07/07/15 05:20 MCHC 33.6 g/dl (32.0-35.9) 07/07/15 05:20 RDW 14.9 % (11.9-15.9) 07/07/15 05:20 Plt Count 248 K/MM3 (134-434) 07/07/15 05:20 MPV 8.0 fl (7.5-11.1) 07/07/15 05:20 Add Manual Diff Cancelled 06/26/15 21:50 Neutrophils % 83.4 % (42.8-82.8) H 07/07/15 05:20 Lymphocytes % 6.9 % (8-40) L 07/07/15 05:20 Monocytes % 4.7 % (3.8-10.2) 07/07/15 05:20 Eosinophils % 4.5 % (0-4.5) 07/07/15 05:20 Basophils % 0.5 % (0-2.0) 07/07/15 05:20 Band Neutrophils 6.0 % (0-10) 06/28/15 09:35 Differential Comment Manual diff done 06/28/15 09:35 Smudge Cells Cancelled 06/26/15 21:50 Platelet Estimate Slt decreased (NORMAL) 06/28/15 09:35 Platelet Comment No clumping noted 06/28/15 09:35 Platelet Comment No clotting detected 06/28/15 09:35 Normal RBC Morphology Cancelled 06/26/15 21:50 RBC Morphology Cancelled 06/26/15 21:50 INR 1.34 (0.86-1.14) H 07/01/15 05:30 PTT (Actin FS) 27.8 SECONDS (23.5-38.3) 07/01/15 05:30 Puncture Site Arterial line 07/06/15 07:25 ABG pH 7.45 (7.35-7.45) 07/06/15 07:25 ABG pCO2 at Pt Temp 35.8 mmHg (35-45) D 07/06/15 07:25 ABG pO2 at Pt Temp 137.0 mmHg (70-100) H D 07/06/15 07:25 ABG HCO3 24.3 meq/L (22-26) 07/06/15 07:25 ABG O2 Sat (Measured) 99.7 % (90-98.9) H* 07/06/15 07:25 ABG O2 Content 12.2 % vol (15-22) L 07/06/15 07:25 ABG Base Excess 0.8 meq/l (-2-2) 07/06/15 07:25 Izaiah Test Not applicable 07/06/15 07:25 O2 Delivery Device Mec.vent 07/06/15 07:25 Oxygen Flow Rate 30% 07/06/15 07:25 Vent Mode A/c 07/06/15 07:25 Vent Rate 10 07/06/15 07:25 Mechanical Rate Esprit 07/06/15 07:25 PEEP 5.0 cmH2O 07/06/15 07:25 Pressure Support Vent 500 07/06/15 07:25 Sodium 141 mmol/L (136-145) 07/07/15 05:20 Potassium 3.8 mmol/L (3.5-5.1) 07/07/15 05:20 Chloride 109 mmol/L (98-107) H 07/07/15 05:20 Carbon Dioxide 24 mmol/L (21-32) 07/07/15 05:20 Anion Gap 8 (8-16) 07/07/15 05:20 BUN 10 mg/dL (7-18) D 07/07/15 05:20 Creatinine 0.6 mg/dL (0.6-1.3) D 07/07/15 05:20 Creat Clearance w eGFR > 60 (>60) 07/07/15 05:20 POC Glucometer 240.28188 UNITS (()) 07/07/15 06:35 Random Glucose 228 mg/dL (74-106) H 07/07/15 05:20 Lactic Acid 1.606 mmol/L (0.4-2.0) 06/27/15 10:10 Calcium 7.8 mg/dL (8.5-10.1) L 07/07/15 05:20 Phosphorus 2.8 mg/dL (2.5-4.9) 07/07/15 05:20 Magnesium 1.8 mg/dL (1.8-2.4) 07/07/15 05:20 Total Bilirubin 0.3 mg/dL (0.2-1.0) D 07/07/15 05:20 AST 29 U/L (15-37) D 07/07/15 05:20 ALT 19 U/L (12-78) D 07/07/15 05:20 Alkaline Phosphatase 54 U/L (50-136) 07/07/15 05:20 Creatine Kinase 62 IU/L (38-174) 06/28/15 09:35 Creatine Kinase Index 0.7 % (0.0-5.0) 06/26/15 21:50 CK-MB (CK-2) 1.077 ng/ml (0.3-4.0) 06/26/15 21:50 CK-MB (CK-2) Rel Index Cancelled 06/26/15 21:50 Troponin I 0.11 ng/ml (0.03-0.5) D 06/28/15 09:35 Total Protein 5.2 g/dl (6.4-8.2) L 07/07/15 05:20 Albumin 2.0 g/dl (3.5-5.0) L 07/07/15 05:20 Lipase 140 U/L (73-293) 06/26/15 21:50 Prolactin 19.8 ng/ml (4.0-15.2) H 07/02/15 05:20 Urine Color Yellow 06/28/15 10:00 Urine Appearance Slcloudy 06/28/15 10:00 Urine pH 5.0 (5.0-8.0) 06/28/15 10:00 Ur Specific [place] 1.026 (1.001-1.035) 06/28/15 10:00 Urine Protein Negative (NEGATIVE) 06/28/15 10:00 Urine Glucose (UA) Negative (NEGATIVE) 06/28/15 10:00 Urine Ketones Negative (NEGATIVE) 06/28/15 10:00 Urine Blood Negative (NEGATIVE) 06/28/15 10:00 Urine Nitrite Negative (NEGATIVE) 06/28/15 10:00 Urine Bilirubin Negative (NEGATIVE) 06/28/15 10:00 Urine Urobilinogen Negative E.U./dl (0.2-1.0) 06/28/15 10:00 Ur Leukocyte Esterase Negative (NEGATIVE) 06/28/15 10:00 Stool Occult Blood Negative (NEGATIVE) 07/02/15 12:00 Hepatitis C Ab (EIA) <0.1 s/co ratio (0.0-0.9) 07/03/15 05:15 Blood Type O POSITIVE 06/30/15 15:15 Antibody Screen Negative 06/30/15 15:15 Crossmatch See Detail 06/30/15 15:15 Crossmatch IS Only See Detail 06/26/15 21:50 Spec Expiration Date 06/26/15 21:50 Microbiology 07/02/15 18:00 Blood - Peripheral Venous Blood Culture - Preliminary NO GROWTH OBTAINED AFTER 96 HOURS, INCUBATION TO CONTINUE FOR 1 DAYS. 07/02/15 18:00 Blood - Peripheral Venous Blood Culture - Preliminary NO GROWTH OBTAINED AFTER 96 HOURS, INCUBATION TO CONTINUE FOR 1 DAYS. 06/28/15 09:32 Blood - Peripheral Venous Blood Culture - Final NO GROWTH AFTER 5 DAYS INCUBATION 06/28/15 09:32 Blood - Peripheral Venous Blood Culture - Final NO GROWTH AFTER 5 DAYS INCUBATION 06/28/15 17:30 Sputum - Endotrachea Suction/Ventilator Gram Stain - Final 06/28/15 17:30 Sputum - Endotrachea Suction/Ventilator Sputum Culture - Final NORMAL RESPIRATORY ARMAND 06/27/15 20:30 Urine - Urine Schwartz Urine Culture - Final NO GROWTH OBTAINED 06/28/15 10:00 Urine For Antigen Detection Legionella Antigen - Final 06/28/15 10:00 Urine For Antigen Detection Streptococcus pneumoniae Antigen (M - Final Wounds - Wound Wound #1 Type of wound: Yes: Pressure ulcer Stage: II Location/laterality: right buttock Wound size: 1.2cm L x 2.5cm W x 0.1cm deep Thickness: Partial Undermining: No Tunneling: No Drainage/exudate: No Wound bed tissue: Yes: Erythematous Wound edges color: Normally pigmented Wound edges raised: No Wound edges rolled: No Wound edges contracted: No Pain: No Surrounding tissue to 4cm: Yes: Healthy Wound #2 Type of wound: Yes: Pressure ulcer Stage: II Location/laterality: 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, 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 Wound size: 1cm L x 0.25cm W x 0.1cm D Thickness: Partial Undermining: No Tunneling: No Drainage/exudate: No Wound bed tissue: Yes: Erythematous Wound edges color: Normally pigmented Wound edges raised: No Wound edges rolled: No Wound edges contracted: No Pain: No Surrounding tissue to 4cm: Yes: Healthy Assessment/Plan Wound #1 Diagnosis: Pressure ulcer Wound specific intervention: Allevyn dressing Wound #2 Diagnosis: Pressure ulcer Wound specific intervention: Barrier cream Indicators of Infection: No pus, no cellulitis Impediments to healing: Limited mobility, Unable to self-position in bed ( Intubated), Hypoalbunemia, Nutritional deficiencies, Incontinence of urine, Incontinence of bowel Nutrition/Dietary supplements/vitamins: Continue Vital tube feeds; added MVI Support Surface: [employer] Bed HOB elevation: 30 degrees Off-loading: Turning/repositioning q2h, Elevate heels off bed with pillows Incontinence management: Schwartz in place, Rectal tube in place, Avoid diapers; if must be used, do not secure around patient
[2015-07-07] MEDS: SODIUM CHLORIDE 0.45%/POT 1,000 ML IV SCH (14:28)
[2015-07-07] MEDS: CHLORHEXIDINE GLUCONATE 4% CLEANSER FOR DECOLONIZATION TP SCH (21:40)
[2015-07-07] MEDS: MULTIVITAMINS THERAPEUTIC PO SCH (22:15)
[2015-07-08 05:54] LABS: BASOPHIL 0.3 % (0-2.0); EOSINOPHIL 3.4 % (0-4.5); MCH 29.3 pg (25.7-33.7); MEAN CELL VOLUME 88.9 fl (80-96); MEAN PLT VOLUME 8.1 fl (7.5-11.1); NEUTROPHILS 84.1 % (42.8-82.8); PLATELET COUNT 264 K/MM3 (134-434); RDW 15.1 % (11.9-15.9); WHITE BLOOD COUNT 18.3 K/mm3 (4.0-10.0)
[2015-07-08] MEDS: INSULIN SLIDING SCALE (NOVOLOG) 1 VIAL SQ SCH ×3 (06:49→17:29)
[2015-07-08 06:54] LABS: ALBUMIN 1.9 g/dl (3.5-5.0); ANION GAP 7 (8-16); BILIRUBIN,TOTAL 0.2 mg/dL (0.2-1.0); CALCIUM 7.9 mg/dL (8.5-10.1); CO2 25 mmol/L (21-32); CREATININE 0.9 mg/dL (0.6-1.3); GLUCOSE,RANDOM 288 mg/dL (74-106); PHOSPHOROUS 3.4 mg/dL (2.5-4.9); SGOT/AST 24 U/L (15-37); SGPT/ALT 23 U/L (12-78)
[2015-07-08 06:55] LABS: ALK PHOS 59 U/L (50-136)
[2015-07-08] MEDS: hydrALAZINE HCL 20 MG/ML VIAL IVPUSH PRN ×2 (07:10→12:13)
--- NOTE | 2015-07-08 08:23 | PN ---
Progress Note (short form) - Note Progress Note: Pt remains off sedation on the vent, but not waking up. Still spiking low grade fever. Discussed with RN fever 100 rectally overnight. No further rectal bleeding. Still having diarrhea. Continuing enteral feeds. BP remains elevated. Awaiting palliative consult to discuss with family if will proceed with trach and peg since pt will need LT care as he remains unresponsive with no improvement in mental status. Objective Last Vital Signs Temp Pulse Resp BP Pulse Ox 99 F 114 H 25 H 190/82 100 07/08/15 06:00 07/08/15 06:00 07/08/15 06:45 07/08/15 06:00 07/07/15 22:59 Physical Examination Constitutional: Yes: Well Nourished, No Distress, sedated on the vent HENT: Yes: Atraumatic, Normocephalic, Other (pallor, no scleral icterus. Facial/ lip laceration, no bleeding) Cardiovascular: Yes: Regular Rate and Rhythm, S1, S2 Respiratory: Yes: CTA Bilaterally. No: Rales, Rhonchi, Wheezes Gastrointestinal: Yes: Soft, +navi c/d/i, +bowel sounds, less distended Extremities: No: Cyanosis, Erythema, myoclonus jerks Edema: No Integumentary: No: Rash Neurological: Yes: off sedation on the vent, remains unresponsive even to painful stimuli, +corneals Labs: CBCD WBC 18.3 K/mm3 (4.0-10.0) H 07/08/15 05:00 RBC 3.00 M/mm3 (4.00-5.60) L 07/08/15 05:00 Hgb 8.8 GM/dL (11.7-16.9) L 07/08/15 05:00 Hct 26.7 % (35.4-49) L 07/08/15 05:00 MCV 88.9 fl (80-96) 07/08/15 05:00 MCHC 33.0 g/dl (32.0-35.9) 07/08/15 05:00 RDW 15.1 % (11.9-15.9) 07/08/15 05:00 Plt Count 264 K/MM3 (134-434) 07/08/15 05:00 MPV 8.1 fl (7.5-11.1) 07/08/15 05:00 CMP Sodium 143 mmol/L (136-145) 07/08/15 05:00 Potassium 4.3 mmol/L (3.5-5.1) 07/08/15 05:00 Chloride 111 mmol/L (98-107) H 07/08/15 05:00 Carbon Dioxide 25 mmol/L (21-32) 07/08/15 05:00 Anion Gap 7 (8-16) L 07/08/15 05:00 BUN 13 mg/dL (7-18) D 07/08/15 05:00 Creatinine 0.9 mg/dL (0.6-1.3) D 07/08/15 05:00 Creat Clearance w eGFR > 60 (>60) 07/08/15 05:00 Random Glucose 288 mg/dL (74-106) H D 07/08/15 05:00 Calcium 7.9 mg/dL (8.5-10.1) L 07/08/15 05:00 Total Bilirubin 0.2 mg/dL (0.2-1.0) D 07/08/15 05:00 AST 24 U/L (15-37) 07/08/15 05:00 ALT 23 U/L (12-78) D 07/08/15 05:00 Alkaline Phosphatase 59 U/L (50-136) 07/08/15 05:00 Total Protein 5.0 g/dl (6.4-8.2) L 07/08/15 05:00 Albumin 1.9 g/dl (3.5-5.0) L 07/08/15 05:00 CARDIAC ENZYMES Creatine Kinase 62 IU/L (38-174) 06/28/15 09:35 Troponin I 0.11 ng/ml (0.03-0.5) D 06/28/15 09:35 ABG Results ABG pH 7.45 (7.35-7.45) 07/06/15 07:25 ABG pCO2 at Pt Temp 35.8 mmHg (35-45) D 07/06/15 07:25 ABG pO2 at Pt Temp 137.0 mmHg (70-100) H D 07/06/15 07:25 ABG HCO3 24.3 meq/L (22-26) 07/06/15 07:25 ABG O2 Sat (Measured) 99.7 % (90-98.9) H* 07/06/15 07:25 ABG O2 Content 12.2 % vol (15-22) L 07/06/15 07:25 ABG Base Excess 0.8 meq/l (-2-2) 07/06/15 07:25 Microbiology 07/02/15 18:00 Blood - Peripheral Venous Blood Culture - Final NO GROWTH AFTER 5 DAYS INCUBATION 07/02/15 18:00 Blood - Peripheral Venous Blood Culture - Final NO GROWTH AFTER 5 DAYS INCUBATION 06/28/15 09:32 Blood - Peripheral Venous Blood Culture - Final NO GROWTH AFTER 5 DAYS INCUBATION 06/28/15 09:32 Blood - Peripheral Venous Blood Culture - Final NO GROWTH AFTER 5 DAYS INCUBATION 06/28/15 17:30 Sputum - Endotrachea Suction/Ventilator Gram Stain - Final 06/28/15 17:30 Sputum - Endotrachea Suction/Ventilator Sputum Culture - Final NORMAL RESPIRATORY ARMAND 06/27/15 20:30 Urine - Urine Schwartz Urine Culture - Final NO GROWTH OBTAINED 06/28/15 10:00 Urine For Antigen Detection Legionella Antigen - Final 06/28/15 10:00 Urine For Antigen Detection Streptococcus pneumoniae Antigen (M - Final Current Medications Generic Name Dose Route Start Last Admin Trade Name Freq PRN Reason Stop Dose Admin Amlodipine Besylate 5 mg 07/05/15 10:00 07/07/15 09:39 Norvasc - PO 5 mg DAILY KWAKU Administration Chlorhexidine Gluconate 1 applic 06/29/15 22:00 07/07/15 21:40 Hibiclens For Decolonization - TP 1 applic HS KWAKU Administration Hydralazine HCl 10 mg 07/04/15 13:42 07/08/15 07:10 Apresoline Injection - IVPUSH 10 mg Q6H PRN Administration HYPERTENSION- prn sbp > 160 Pantoprazole Sodium 40 mg/ 100 mls @ 200 mls/hr 06/29/15 22:00 07/07/15 21:40 Sodium Chloride IVPB 200 mls/hr BID KWAKU Administration Potassium Chloride/Sodium Chloride 1,000 mls @ 75 mls/hr 06/30/15 13:30 14:28 1/2ns+20meq Kcl IV Not Given ASDIR KWAKU Insulin Aspart 0 units 06/29/15 18:00 07/08/15 06:49 Novolog Flexpen Sliding Scale - SQ Not Given Q6HPO [facility] Protocol Lisinopril 10 mg 07/05/15 10:00 07/07/15 09:39 Prinivil - PO 10 mg DAILY KWAKU Administration Metoprolol Tartrate 5 mg 07/02/15 19:04 07/05/15 16:30 Lopressor Injection - IVPUSH 5 mg Q6H PRN Administration HYPERTENSION Multivitamins 5 ml 07/07/15 21:45 07/07/15 22:15 Thera-Plus - PO 5 ml DAILY KWAKU Administration Ondansetron HCl 4 mg 06/29/15 16:02 Zofran Injection - IVPB Q6H PRN NAUSEA A/P This is a 75yo M with PMHx HTN, DM and inguinal hernia who presented with dark tarry stool and BRBPR with episode of syncope, now s/p rt hemicolectomy and unresponsive on the vent AMS-multifactorial secondary anoxic brain injury, 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, not seizures -remains intubated on the vent, not sedated but not waking up -pulmonary/critical care mgmt appreciated -f/u abg and cxr -neurology f/u appreciated -pt now with myocolonus jerks and not seizures per neurology -will need trach and peg, tbd and will need to start conversation with family; palliative consulted as well since will require LT care since remains unresponsive and prognosis of improving and waking up poor GI bleed, lower due to diverticular bleed s/p Rt hemicolectomy, POD#9 -surgery f/u appreciated -s/p colonoscopy and clipped -gi f/u appreciated -no further melena, all BRBPR cw diverticular LGIB and as per scope -cont icu monitoring -protonix drip -cont enteral feeds as tolerated, at goal of 50cc/hr -ngt in place with tip in gastric fundus as reviewed xray and report -07/04 started on enteral feeding trial (Vital 1.2@20cc/hr, increase q8hr 10cc with goal 50cc) now at 30cc but having diarrhea with rectal tube in place -ivf -f/u h/h 8.8/26.7<--8.9/26.5, stable -s/p flagyl and rocephin as per ID Syncope, likely secondary acute blood loss vs neurologic event -echo showed ef 51%, nml LVSF, mod LVH -Reviewed CT head showing acute vs. subacute infarct -fall precautions -bedrest for now -cont ivf Acute blood loss anemia secondary #1 -f/u h/h, stable w/o further bleeding -transfuse to keep hgb >7 -repeat h/h (8.8 hgb ), stable Fever r/o aspiration/leukocytosis -pt remains on the vent; pulmonary/CC mgmt appreciated -f/u cxr and abg -trend fever, 100 low grade -wbc uptrending 18.3<-17.8<-18.4<--14.6<-17.5<-15.1 -f/u cultures ngtd -cont rocephin and added flagyl to cover anaerobes Accelerated HTN- better controlled, improving -cont lopressor and vasotec -hydralazine prn Hypokalemia, resolved -replete and check mg; but K+ likely to increased after prbc transfusion as well DAVID- likely dehydration and acute blood loss, improved -avoid nephrotoxic agents -f/u bun/creat, stable -f/u UA DM-controlled -NISS with fsbs q6 -hold oral hypoglycemics while npo dvt/gi prophylaxis -scds, no anticoagulation secondary gib -ppi drip d/c planning -will need trach and peg then LT care since in vegetative state not waking up. Palliative consult pending (Nurse Kirsten ryan at present) to discuss further with family if agreeable to proceed with peg and trach as pt will likely then need LT care vs. readdress code status for comfort measures. If family agree to trach then Dr. Agosto would help arrange and consult surgery/CTS. TBD as we discussed
--- NOTE | 2015-07-08 09:41 | PN ---
Progress Note (short form) - Note Progress Note: PULMONARY/CCM Pt seen and examined in the ICU. Remains intubated, unresponsive. Tachycardic and tachypneic this AM. Last Vital Signs Temp Pulse Resp BP Pulse Ox 99 F 142 H 28 H 186/82 98 07/08/15 06:00 07/08/15 09:06 07/08/15 09:06 07/08/15 09:06 07/08/15 09:06 Intake & Output 07/05/15 07/06/15 07/07/15 07/08/15 23:59 23:59 23:59 23:59 Intake Total 2985 1475 2895 940 Output Total 1400 2425 1800 450 Balance 1585 -950 1095 490 Weight 182 lb 9.6 oz 182 lb 5.156 oz 182 lb 8.684 oz 183 lb 3.266 oz Gen: intubated, poorly responsive Heart: tachycardic, regular Lung: decreased breath sounds at the bases Abd: soft, nontender, dressing dry Ext: + edema CBC, BMP 07/08/15 05:00 07/08/15 05:00 Active Medications Amlodipine Besylate (Norvasc -) 5 mg PO DAILY [facility] Last Admin: 07/07/15 09:39 Dose: 5 mg Chlorhexidine Gluconate (Hibiclens For Decolonization -) 1 applic TP HS [facility] Last Admin: 07/07/15 21:40 Dose: 1 applic Hydralazine HCl (Apresoline Injection -) 10 mg IVPUSH Q6H PRN PRN Reason: HYPERTENSION- prn sbp > 160 Last Admin: 07/08/15 07:10 Dose: 10 mg Pantoprazole Sodium 40 mg/ (Sodium Chloride) 100 mls @ 200 mls/hr IVPB BID [facility] Last Admin: 07/07/15 21:40 Dose: 200 mls/hr Potassium Chloride/Sodium Chloride (1/2ns+20meq Kcl) 1,000 mls @ 75 mls/hr IV ASDIR [facility] Last Admin: 07/07/15 14:28 Dose: Not Given Insulin Aspart (Novolog Flexpen Sliding Scale -) 0 units SQ Q6HPO KWAKU PRN Reason: Protocol Last Admin: 07/08/15 06:49 Dose: Not Given Lisinopril (Prinivil -) 10 mg PO DAILY [facility] Last Admin: 07/07/15 09:39 Dose: 10 mg Metoprolol Tartrate (Lopressor Injection -) 5 mg IVPUSH Q6H PRN PRN Reason: HYPERTENSION Last Admin: 07/05/15 16:30 Dose: 5 mg Multivitamins (Thera-Plus -) 5 ml PO DAILY KWAKU Last Admin: 07/07/15 22:15 Dose: 5 ml Ondansetron HCl (Zofran Injection -) 4 mg IVPB Q6H PRN PRN Reason: NAUSEA A/P Acute Lower Diverticular GI Bleed Acute Blood Loss Anemia Acute Respiratory Failure Acute CVA s/p Pneumonia HTN DM CKD - check EKG - IV lopressor - monitor CBC, coags - protonix - d/c IVF - s/p antibiotics - ensure large bore peripheral access - DVT/GI prophylaxis - poor prognosis for meaningful recovery - d/w family goals of care - continue ICU monitoring
[2015-07-08] MEDS: METOPROLOL TARTRATE 5 MG/5 ML VIAL IVPUSH PRN (09:45)
[2015-07-08] MEDS: PANTOPRAZOLE SODIUM 40 MG in SODIUM CHLORIDE 100 ML IVPB SCH ×2 (09:51→21:53)
[2015-07-08] MEDS: amLODIPine BESYLATE 5 MG TABLET (FP) PO SCH (09:52)
[2015-07-08] MEDS: LISINOPRIL 10 MG TABLET (FP) PO SCH (09:52)
[2015-07-08] MEDS: MULTIVITAMINS THERAPEUTIC PO SCH (12:18)
--- NOTE | 2015-07-08 15:53 | EKG ---
Test Reason : Blood Pressure : / mmHG Vent. Rate : 142 BPM Atrial Rate : 142 BPM P-R Int : 126 ms QRS Dur : 084 ms QT Int : 298 ms P-R-T Axes : 055 015 158 degrees QTc Int : [address] ABNORMAL ECG WHEN COMPARED WITH ECG OF 27-JUN-2015 09:55, VENT. RATE HAS INCREASED BY 62 BPM T WAVE INVERSION NOW EVIDENT IN LATERAL LEADS Confirmed by PRABHJOT YOUNG ([id number]) on 07/08/2015 3:52:15 PM Referred By: Overread By: PRABHJOT YOUNG
[2015-07-08] MEDS: CHLORHEXIDINE GLUCONATE 4% CLEANSER FOR DECOLONIZATION TP SCH (21:53)
[2015-07-09 05:55] LABS: BASOPHIL 0.5 % (0-2.0); EOSINOPHIL 3.1 % (0-4.5); MCH 29.4 pg (25.7-33.7); MCHC 32.6 g/dl (32.0-35.9); MEAN CELL VOLUME 90.4 fl (80-96); MEAN PLT VOLUME 8.4 fl (7.5-11.1); NEUTROPHILS 86.4 % (42.8-82.8); PLATELET COUNT 341 K/MM3 (134-434); RDW 15.2 % (11.9-15.9); WHITE BLOOD COUNT 18.8 K/mm3 (4.0-10.0)
[2015-07-09 06:29] LABS: CALCIUM 8.6 mg/dL (8.5-10.1); CREATININE 0.9 mg/dL (0.6-1.3); MAGNESIUM 1.9 mg/dL (1.8-2.4); PHOSPHOROUS 3.8 mg/dL (2.5-4.9)
[2015-07-09] MEDS: INSULIN SLIDING SCALE (NOVOLOG) 1 VIAL SQ SCH ×3 (06:30→12:21)
[2015-07-09] MEDS: hydrALAZINE HCL 20 MG/ML VIAL IVPUSH PRN (06:34)
--- NOTE | 2015-07-09 08:42 | PN ---
Progress Note (short form) - Note Progress Note: Subjective: intubated .still unconscious. per RN , no events over night , no further bleed. BP remains elevated Objective: Last Vital Signs Temp Pulse Resp BP Pulse Ox 98.5 F 113 H 22 182/90 99 07/09/15 06:00 07/09/15 06:00 07/09/15 06:52 07/09/15 06:00 07/08/15 19:51 Physical Exam: NAD , intubated, non responsive even to sternal rub CV: RRR, HR in low 90s on tele lungs: CTAB ext : no edema on legs. abd : soft, NT, ND , nl BS , surgical wound with navi on neuro : unconscious, non responsive to sternal rub.no spontaneous movements in ext . reflexes : 0biceps b/l , 0 knee jerk b/l no facial droop, round pupils reactive to light, positive corneal reflexes . coughs on vent Intake & Output 07/06/15 07/07/15 07/08/15 07/09/15 23:59 23:59 23:59 23:59 Intake Total 1475 2895 1880 720 Output Total 2425 1800 1150 500 Balance -950 1095 730 220 Weight 182 lb 5.156 oz 182 lb 8.684 oz 183 lb 3.266 oz 182 lb Labs: Laboratory Results - last 24 hr 07/08/15 07/08/15 07/08/15 05:46 12:00 16:46 WBC RBC Hgb Hct MCV MCHC RDW Plt Count MPV Neutrophils % Lymphocytes % Monocytes % Eosinophils % Basophils % Sodium Potassium Chloride Carbon Dioxide Anion Gap BUN Creatinine POC Glucometer 163.99140 363.10989 [phone] Random Glucose Calcium Phosphorus Magnesium 07/09/15 07/09/15 07/09/15 00:16 05:00 06:26 WBC 18.8 H RBC 3.35 L Hgb 9.9 L D Hct 30.3 L MCV 90.4 MCHC 32.6 RDW 15.2 Plt Count 341 D MPV 8.4 Neutrophils % 86.4 H Lymphocytes % 6.1 L Monocytes % 3.9 Eosinophils % 3.1 Basophils % 0.5 Sodium 140 Potassium 3.9 Chloride 108 H Carbon Dioxide 26 Anion Gap 6 L BUN 11 Creatinine 0.9 POC Glucometer [phone] Random Glucose 263 H Calcium 8.6 Phosphorus 3.8 Magnesium 1.9 Assessment/Plan: This is a 75yo M with PMHx HTN, DM and inguinal hernia now presenting with dark tarry stool and BRBPR with epidose of syncope, he was admitted to ICU, continued to beed despite intervention during colonoscopy . he ended up having R hemicolectomy . now off sedation , not waking up, with possible anoxic brain injury and stroke 1- Lower GI bleed :post op day 10 s/p R hemicolectomy - stable hb , no further bleed - monitor H&H - cont PPI gtt 2- AMS , inability to extubate , off sedation but no responsiveness . possible anoxic brain injury and CVA still has brain stem reflexes poor prognosis d/w daughter trach and PEG , she will d/w family 3- leukocytosis : worse, received Abx for possible asp PNA . Cxray reviewed, no ASD , no evidence of inf now has diarrhea , possibly due to TF, but infection theresa c diff need to be r/o - send stool studies and C diff 4- HTN: BP on monitor 150 /80 . but has been elevated - cont lisiopril and norvasc - add metoprolol through NG. - d/c PRN hydralazine due to tachycardia . - PRN lopressor IV - EKG from yesterday reviewed, new lateral TWI. - repeat EKG this am , with resolved tachycardia but persistent lateral TWI. - check trop - consult card 5- hypernatremia :resolved 6- DAVID : due to pre-renal azotemia , resolved 7-DM : GBM in 300s , adjust SSI 8- electrolyte Abn : resolved DVT PX : SCds ICU level of care critical time spent 45 min spoke to chente Madden , updated her . d/w her need for PEG and Trach, she will think about it also told her of the poor prognosis. will arrange for a family meeting when family is ready Pressure Support Vent 500 Sodium Potassium Chloride Carbon Dioxide Anion Gap BUN Creatinine Creat Clearance w eGFR POC Glucometer [phone] Random Glucose Calcium Phosphorus Magnesium Total Bilirubin AST ALT Alkaline Phosphatase Total Protein Albumin Blood Type Antibody Screen Crossmatch Crossmatch IS Only Spec Expiration Date Assessment/Plan: This is a 75yo M with PMHx HTN, DM and inguinal hernia now presenting with dark tarry stool and BRBPR with epidose of syncope, he was admitted to ICU, continued to beedl despite intervention during colonoscopy . he ended up having R hemicolectomy . now with a stroke and inability to extubate 1- Lower GI bleed :post op day 2 s/p R hemicolectomy - Hb 8.1 . s/p RBC transfusions - monitor carefully , transfuse if Hb < 8 - repeat Hb in am - cont PPI BID 2- AMS , inability to extubate , off sedation but no responsivness . CT scan showed [address] Linton note reviewed. can't obtain MRI as intubated . repeat Ct scan ordered. cont with permissive HTN, and appreciate neuro Recs. can't use anti-platelet meds now as pt had severe GI bleed , and Hb is still dropping. further d/w neuro and GI when stable from GI standpoint . 3- acute resp failure : due to possible aspiration PNA , - intubated now . ABG reviewed - cont CtX, and flagyl - ID on case . Recs appreciated 4- HTN: PRN lopressor for BP > 200/110 further Recs by neuro 5- hypernatremia : due to dehydration and free water loss . cont NS @ 75 . Na improved 6- DAVID : due to pre-renal azotemia , resolved 7-DM : SSI q 6 hrs 8- hypokalemia , hypophosphatemia : replete DVT PX : SCds ICU level of care ' critical time spent 35 min case was d/w daughter yesterday. will contact her again today
--- NOTE | 2015-07-09 09:15 | PN ---
Progress Note (short form) - Note Progress Note: PULMONARY/CCM Pt seen and examined in the ICU. Remains intubated, unresponsive. Heart rhythm sinus with better rates. Last Vital Signs Temp Pulse Resp BP Pulse Ox 98.5 F 113 H 22 182/90 99 07/09/15 06:00 07/09/15 06:00 07/09/15 06:52 07/09/15 06:00 07/08/15 19:51 Intake & Output 07/06/15 07/07/15 07/08/15 07/09/15 23:59 23:59 23:59 23:59 Intake Total 1475 2895 1880 720 Output Total 2425 1800 1150 500 Balance -950 1095 730 220 Weight 182 lb 5.156 oz 182 lb 8.684 oz 183 lb 3.266 oz 182 lb Gen: intubated, poorly responsive Heart: tachycardic, regular Lung: decreased breath sounds at the bases Abd: soft, nontender, dressing dry Ext: + edema CBC, BMP 07/09/15 05:00 07/09/15 05:00 Active Medications Amlodipine Besylate (Norvasc -) 5 mg PO DAILY [facility] Last Admin: 07/08/15 09:52 Dose: 5 mg Chlorhexidine Gluconate (Hibiclens For Decolonization -) 1 applic TP HS [facility] Last Admin: 07/08/15 21:53 Dose: 1 applic Pantoprazole Sodium 40 mg/ (Sodium Chloride) 100 mls @ 200 mls/hr IVPB BID [facility] Last Admin: 07/08/15 21:53 Dose: 200 mls/hr Insulin Aspart (Novolog Flexpen Sliding Scale -) 0 units SQ Q6HPO [facility] PRN Reason: Protocol Lisinopril (Prinivil -) 10 mg PO DAILY [facility] Last Admin: 07/08/15 09:52 Dose: 10 mg Metoprolol Tartrate (Lopressor -) 25 mg PO BID [facility] Metoprolol Tartrate (Lopressor Injection -) 5 mg IVPUSH Q6H PRN PRN Reason: HYPERTENSION Midazolam HCl (Versed -) 2 mg IVPUSH Q6H PRN PRN Reason: AGITATION Multivitamins (Thera-Plus -) 5 ml PO DAILY [facility] Last Admin: 07/08/15 12:18 Dose: 5 ml Ondansetron HCl (Zofran Injection -) 4 mg IVPB Q6H PRN PRN Reason: NAUSEA A/P Acute Lower Diverticular GI Bleed Acute Blood Loss Anemia Acute Respiratory Failure Acute CVA s/p Pneumonia HTN DM CKD - monitor CBC, coags - protonix - s/p antibiotics - ensure large bore peripheral access - DVT/GI prophylaxis - poor prognosis for meaningful recovery - d/w family goals of care - continue ICU monitoring
--- NOTE | 2015-07-09 09:55 | EKG ---
Test Reason : Blood Pressure : / mmHG Vent. Rate : 094 BPM Atrial Rate : 094 BPM P-R Int : 148 ms QRS Dur : 088 ms QT Int : 414 ms P-R-T Axes : 065 002 117 degrees QTc Int : 517 ms NORMAL SINUS RHYTHM T WAVE ABNORMALITY, CONSIDER LATERAL ISCHEMIA PROLONGED QT ABNORMAL ECG WHEN COMPARED WITH ECG OF 08-JUL-2015 09:34, VENT. RATE HAS DECREASED BY [address] NO LONGER DEPRESSED IN INFERIOR LEADS NONSPECIFIC T WAVE ABNORMALITY NOW EVIDENT IN INFERIOR LEADS T WAVE INVERSION NOW EVIDENT IN ANTERIOR LEADS Confirmed by TORIE HERRERA, MALI ([id number]) on 07/09/2015 9:54:55 AM Referred By: NEVA SHAFFER Overread By: MALI VOGT MD
[2015-07-09] MEDS: PANTOPRAZOLE SODIUM 40 MG in SODIUM CHLORIDE 100 ML IVPB SCH ×2 (10:19→21:53)
[2015-07-09] MEDS: LISINOPRIL 10 MG TABLET (FP) PO SCH (10:19)
[2015-07-09] MEDS: amLODIPine BESYLATE 5 MG TABLET (FP) PO SCH (10:19)
[2015-07-09] MEDS: METOPROLOL TARTRATE 25 MG TABLET (FP) PO SCH ×2 (10:19→21:52)
[2015-07-09] MEDS: MULTIVITAMINS THERAPEUTIC PO SCH (12:22)
[2015-07-09] MEDS: CHLORHEXIDINE GLUCONATE 4% CLEANSER FOR DECOLONIZATION TP SCH (21:52)
[2015-07-10] MEDS: INSULIN SLIDING SCALE (NOVOLOG) 1 VIAL SQ SCH ×4 (00:23→17:09)
[2015-07-10] MEDS: METOPROLOL TARTRATE 5 MG/5 ML VIAL IVPUSH PRN (00:24)
[2015-07-10 06:29] LABS: BASOPHIL 0.7 % (0-2.0); EOSINOPHIL 3.8 % (0-4.5); MCH 29.6 pg (25.7-33.7); MCHC 33.2 g/dl (32.0-35.9); MEAN CELL VOLUME 89.3 fl (80-96); MEAN PLT VOLUME 7.8 fl (7.5-11.1); NEUTROPHILS 82.9 % (42.8-82.8); PLATELET COUNT 351 K/MM3 (134-434); RDW 15.4 % (11.9-15.9); WHITE BLOOD COUNT 15.3 K/mm3 (4.0-10.0)
[2015-07-10 06:38] LABS: ALBUMIN 2.1 g/dl (3.5-5.0); ALK PHOS 59 U/L (50-136); ANION GAP 4 (8-16); BILIRUBIN,TOTAL 0.2 mg/dL (0.2-1.0); CALCIUM 8.4 mg/dL (8.5-10.1); CO2 30 mmol/L (21-32); CREATININE 0.9 mg/dL (0.6-1.3); GLUCOSE,RANDOM 256 mg/dL (74-106); PHOSPHOROUS 4.1 mg/dL (2.5-4.9); SGOT/AST 23 U/L (15-37); SGPT/ALT 26 U/L (12-78); TOT PROT 5.4 g/dl (6.4-8.2)
[2015-07-10] MEDS: MIDAZOLAM HCL 2 MG/2 ML SINGLE DOSE VIAL IVPUSH PRN (07:31)
--- NOTE | 2015-07-10 08:31 | PN ---
Progress Note (short form) - Note Progress Note: Subjective: intubated .still unconscious. per RN , had an episode of tachycardia and tachypnea this am , improved with versed . Objective: Last Vital Signs Temp Pulse Resp BP Pulse Ox 98.5 F 113 H 22 182/90 99 07/09/15 06:00 07/09/15 06:00 07/09/15 06:52 07/09/15 06:00 07/08/15 19:51 Physical Exam: NAD , intubated, non responsive even to sternal rub CV: RRR, HR in 110s lungs: CTAB ext : no edema on legs. abd : soft, NT, ND , nl BS , surgical wound with navi on neuro : unconscious, non responsive to sternal rub.no spontaneous movements in ext . reflexes : 0biceps b/l , 0 knee jerk b/l no facial droop, round pupils reactive to light. Last Vital Signs Temp Pulse Resp BP Pulse Ox 98.6 F 109 H 22 160/78 96 07/10/15 06:00 07/10/15 06:00 07/10/15 07:08 07/10/15 06:00 07/09/15 21:20 Labs: Laboratory Results - last 24 hr 07/09/15 07/09/15 07/09/15 05:00 12:15 16:47 WBC RBC Hgb Hct MCV MCHC RDW Plt Count MPV Neutrophils % Lymphocytes % Monocytes % Eosinophils % Basophils % Sodium Potassium Chloride Carbon Dioxide Anion Gap BUN Creatinine Creat Clearance w eGFR POC Glucometer 323.60171 293.50158 Random Glucose Calcium Phosphorus Magnesium Total Bilirubin AST ALT Alkaline Phosphatase Troponin I 0.07 D Total Protein Albumin 07/10/15 07/10/15 07/10/15 00:22 05:20 07:01 WBC 15.3 H RBC 3.05 L Hgb 9.0 L Hct 27.3 L MCV 89.3 MCHC 33.2 RDW 15.4 Plt Count 351 MPV 7.8 Neutrophils % 82.9 H Lymphocytes % 7.7 L D Monocytes % 4.9 Eosinophils % 3.8 Basophils % 0.7 Sodium 143 Potassium 4.0 Chloride 109 H Carbon Dioxide 30 Anion Gap 4 L BUN 13 Creatinine 0.9 Creat Clearance w eGFR > 60 POC Glucometer 292.13590 303.62705 Random Glucose 256 H Calcium 8.4 L Phosphorus 4.1 Magnesium 2.0 Total Bilirubin 0.2 AST 23 ALT 26 Alkaline Phosphatase 59 Troponin I Total Protein 5.4 L Albumin 2.1 L Assessment/Plan: This is a 75yo M with PMHx HTN, DM and inguinal hernia now presenting with dark tarry stool and BRBPR with epidose of syncope, he was admitted to ICU, continued to bleed despite intervention during colonoscopy . he ended up having R hemicolectomy . now off sedation , not waking up, with possible anoxic brain injury and stroke 1- Lower GI bleed :post op day 11 s/p R hemicolectomy - stable hb , no further bleed - monitor H&H - change PPI to IV protonix BID 2- AMS , inability to extubate , off sedation but no responsiveness . possible anoxic brain injury and CVA still has brain stem reflexes poor prognosis family to decide about PEG and trach 3- leukocytosis : slightly improved today , received Abx for possible asp PNA . diarrhea is most likely due to TF , but stool studies are still pending 4- HTN: BP cont to be elevated - cont lisiopril and norvasc - cont metoprolol through NG. ( started yesterday ) , can adjust further if needed . - PRN lopressor IV - trop nl , card c/s is pending 5- hypernatremia :resolved 6- DAVID : due to pre-renal azotemia , resolved 7-DM : GBM is still elevated , but SSi was adjusted yesterday . if remains elevated can give standing dose of regular insulin 8- electrolyte Abn : resolved DVT PX : SCds , can't use lovenox due to bleeding ICU level of care critical time spent 35 min will arrange for a family meeting when family is ready
[2015-07-10] MEDS: amLODIPine BESYLATE 5 MG TABLET (FP) PO SCH (09:06)
[2015-07-10] MEDS: LISINOPRIL 10 MG TABLET (FP) PO SCH (09:06)
[2015-07-10] MEDS: METOPROLOL TARTRATE 25 MG TABLET (FP) PO SCH ×2 (09:06→21:21)
[2015-07-10] MEDS: PANTOPRAZOLE SODIUM 40 MG in SODIUM CHLORIDE 100 ML IVPB SCH ×2 (09:07→21:21)
[2015-07-10] MEDS: MULTIVITAMINS THERAPEUTIC PO SCH (11:47)
--- NOTE | 2015-07-10 15:23 | PN ---
Progress Note (short form) - Note Progress Note: seen and examined in the ICU remains intubted: PSV 5/5 rr 25 Tv 305 BP stable still non responsive Current Medications Amlodipine Besylate (Norvasc -) 5 mg PO DAILY [facility] Last Admin: 07/10/15 09:06 Dose: 5 mg Chlorhexidine Gluconate (Hibiclens For Decolonization -) 1 applic TP HS [facility] Last Admin: 07/09/15 21:52 Dose: 1 applic Pantoprazole Sodium 40 mg/ (Sodium Chloride) 100 mls @ 200 mls/hr IVPB BID [facility] Last Admin: 07/10/15 09:07 Dose: 200 mls/hr Insulin Aspart (Novolog Flexpen Sliding Scale -) 0 units SQ Q6HPO [facility] PRN Reason: Protocol Last Admin: 07/10/15 11:46 Dose: 8 units Lisinopril (Prinivil -) 10 mg PO DAILY [facility] Last Admin: 07/10/15 09:06 Dose: 10 mg Metoprolol Tartrate (Lopressor -) 25 mg PO BID [facility] Last Admin: 07/10/15 09:06 Dose: 25 mg Metoprolol Tartrate (Lopressor Injection -) 5 mg IVPUSH Q6H PRN PRN Reason: HYPERTENSION Last Admin: 07/10/15 00:24 Dose: 5 mg Midazolam HCl (Versed -) 2 mg IVPUSH Q6H PRN PRN Reason: AGITATION Last Admin: 07/10/15 07:31 Dose: 2 mg Multivitamins (Thera-Plus -) 5 ml PO DAILY [facility] Last Admin: 07/10/15 11:47 Dose: 5 ml Ondansetron HCl (Zofran Injection -) 4 mg IVPB Q6H PRN PRN Reason: NAUSEA Vital Signs Period Temp Pulse Resp BP Sys/Santiago Pulse Ox Last 24 Hr 97.6 F-99 F 88-113 16-26 128-173/59-92 96-100 Intake & Output 07/07/15 07/08/15 07/09/15 07/10/15 23:59 23:59 23:59 23:59 Intake Total 2895 1880 2780 950 Output Total 1800 1150 1800 500 Balance 1095 730 980 450 Weight 82.8 kg 83.1 kg 82.554 kg 81.221 kg Exam: Neuro: opens eyes to voice, not following commands, does not localize to noxious stim CV: NSR s1, s2 Pulm: diminished in bases Abd: SNTND +bs Ext: WWP trace UE edema CBC, BMP 07/10/15 05:20 07/10/15 05:20 Microbiology 07/10/15 10:30 Stool Gram Stain - Final 07/02/15 18:00 Blood - Peripheral Venous Blood Culture - Final NO GROWTH AFTER 5 DAYS INCUBATION 07/02/15 18:00 Blood - Peripheral Venous Blood Culture - Final NO GROWTH AFTER 5 DAYS INCUBATION 06/28/15 09:32 Blood - Peripheral Venous Blood Culture - Final NO GROWTH AFTER 5 DAYS INCUBATION 06/28/15 09:32 Blood - Peripheral Venous Blood Culture - Final NO GROWTH AFTER 5 DAYS INCUBATION 06/28/15 17:30 Sputum - Endotrachea Suction/Ventilator Gram Stain - Final 06/28/15 17:30 Sputum - Endotrachea Suction/Ventilator Sputum Culture - Final NORMAL RESPIRATORY ARMAND 06/27/15 20:30 Urine - Urine Schwartz Urine Culture - Final NO GROWTH OBTAINED 06/28/15 10:00 Urine For Antigen Detection Legionella Antigen - Final 06/28/15 10:00 Urine For Antigen Detection Streptococcus pneumoniae Antigen (M - Final A/P Acute Lower Diverticular GI Bleed Acute Blood Loss Anemia Acute Respiratory Failure Acute CVA s/p Pneumonia HTN DM CKD - monitor CBC, coags - protonix - s/p antibiotics - ensure large bore peripheral access - DVT/GI prophylaxis - poor prognosis for meaningful recovery - d/w family goals of care would likely tolerate extubation but high risk of recurrent resp failure 2/2 AMS and inability to protect airway - continue ICU monitoring Boerem ACNP CCT 35"
[2015-07-10] MEDS: CHLORHEXIDINE GLUCONATE 4% CLEANSER FOR DECOLONIZATION TP SCH (21:21)
[2015-07-11] MEDS: INSULIN SLIDING SCALE (NOVOLOG) 1 VIAL SQ SCH ×4 (00:29→17:06)
[2015-07-11] MEDS: METOPROLOL TARTRATE 5 MG/5 ML VIAL IVPUSH PRN (04:00)
[2015-07-11 06:42] LABS: MCH 29.8 pg (25.7-33.7); MCHC 33.4 g/dl (32.0-35.9); MEAN CELL VOLUME 89.3 fl (80-96); MEAN PLT VOLUME 7.6 fl (7.5-11.1); PLATELET COUNT 317 K/MM3 (134-434); RDW 14.9 % (11.9-15.9); WHITE BLOOD COUNT 12.7 K/mm3 (4.0-10.0)
[2015-07-11 07:08] LABS: CALCIUM 8.1 mg/dL (8.5-10.1); CREATININE 0.8 mg/dL (0.6-1.3); MAGNESIUM 1.9 mg/dL (1.8-2.4)
[2015-07-11 07:09] LABS: PHOSPHOROUS 3.9 mg/dL (2.5-4.9)
[2015-07-11 07:11] LABS: INR 1.26 (0.86-1.14); PROTHROMBIN TIME (PATIENT) 13.3 SEC (9.5-11.7)
--- NOTE | 2015-07-11 08:01 | PN ---
Progress Note (short form) - Note Progress Note: Pulm/CCM seen and examined in the ICU no acute events BP stable poor mental status family considering usp mech vent Active Medications Generic Name Dose Route Start Last Admin Trade Name Freq PRN Reason Stop Dose Admin Amlodipine Besylate 10 mg 07/11/15 10:00 Norvasc - PO DAILY [facility] Chlorhexidine Gluconate 1 applic 06/29/15 22:00 07/10/15 21:21 Hibiclens For Decolonization - TP 1 applic HS [facility] Administration Pantoprazole Sodium 40 mg/ 100 mls @ 200 mls/hr 06/29/15 22:00 07/10/15 21:21 Sodium Chloride IVPB 200 mls/hr BID [facility] Administration Insulin Aspart 0 units 07/09/15 08:57 07/11/15 06:26 Novolog Flexpen Sliding Scale - SQ 6 units Q6HPO [facility] Administration Protocol Lisinopril 10 mg 07/05/15 10:00 07/10/15 09:06 Prinivil - PO 10 mg DAILY [facility] Administration Metoprolol Tartrate 25 mg 07/09/15 10:00 07/10/15 21:21 Lopressor - PO 25 mg BID [facility] Administration Metoprolol Tartrate 5 mg 07/09/15 08:29 07/11/15 04:00 Lopressor Injection - IVPUSH 5 mg Q6H PRN Administration HYPERTENSION Midazolam HCl 2 mg 07/09/15 09:01 07/10/15 07:31 Versed - IVPUSH 2 mg Q6H PRN Administration AGITATION Multivitamins 5 ml 07/07/15 21:45 07/10/15 11:47 Thera-Plus - PO 5 ml DAILY [facility] Administration Ondansetron HCl 4 mg 06/29/15 16:02 Zofran Injection - IVPB Q6H PRN NAUSEA Vital Signs Temperature 99 F 07/11/15 06:00 Pulse Rate 81 07/11/15 06:00 Respiratory Rate 16 07/11/15 06:20 Blood Pressure 153/69 07/11/15 06:00 O2 Sat by Pulse Oximetry (%) 99 07/10/15 20:29 Intake & Output 07/08/15 07/09/15 07/10/15 07/11/15 23:59 23:59 23:59 23:59 Intake Total 1880 2780 1890 940 Output Total 1150 1800 900 700 Balance 730 980 990 240 Weight 83.1 kg 82.554 kg 81.221 kg 80.796 kg Exam: Neuro: opens eyes to loud or noxious stimuli, blinks to threat, does not withdrawal CV: NSR s1, s2 Pulm: coarse crackles bilaterally Abd: SNTND +bs Ext: WWP 2+ dependent edema CBCD WBC 12.7 K/mm3 (4.0-10.0) H 07/11/15 05:20 RBC 2.88 M/mm3 (4.00-5.60) L 07/11/15 05:20 Hgb 8.6 GM/dL (11.7-16.9) L 07/11/15 05:20 Hct 25.7 % (35.4-49) L 07/11/15 05:20 MCV 89.3 fl (80-96) 07/11/15 05:20 MCHC 33.4 g/dl (32.0-35.9) 07/11/15 05:20 RDW 14.9 % (11.9-15.9) 07/11/15 05:20 Plt Count 317 K/MM3 (134-434) 07/11/15 05:20 MPV 7.6 fl (7.5-11.1) 07/11/15 05:20 CMP Sodium 143 mmol/L (136-145) 07/11/15 05:20 Potassium 4.1 mmol/L (3.5-5.1) 07/11/15 05:20 Chloride 108 mmol/L (98-107) H 07/11/15 05:20 Carbon Dioxide 28 mmol/L (21-32) 07/11/15 05:20 Anion Gap 7 (8-16) L 07/11/15 05:20 BUN 15 mg/dL (7-18) 07/11/15 05:20 Creatinine 0.8 mg/dL (0.6-1.3) 07/11/15 05:20 Creat Clearance w eGFR > 60 (>60) 07/10/15 05:20 Calcium 8.1 mg/dL (8.5-10.1) L 07/11/15 05:20 Total Bilirubin 0.2 mg/dL (0.2-1.0) 07/10/15 05:20 AST 23 U/L (15-37) 07/10/15 05:20 ALT 26 U/L (12-78) 07/10/15 05:20 Alkaline Phosphatase 59 U/L (50-136) 07/10/15 05:20 Total Protein 5.4 g/dl (6.4-8.2) L 07/10/15 05:20 Albumin 2.1 g/dl (3.5-5.0) L 07/10/15 05:20 Microbiology 07/10/15 10:30 Stool Gram Stain - Final 07/02/15 18:00 Blood - Peripheral Venous Blood Culture - Final NO GROWTH AFTER 5 DAYS INCUBATION 07/02/15 18:00 Blood - Peripheral Venous Blood Culture - Final NO GROWTH AFTER 5 DAYS INCUBATION 06/28/15 09:32 Blood - Peripheral Venous Blood Culture - Final NO GROWTH AFTER 5 DAYS INCUBATION 06/28/15 09:32 Blood - Peripheral Venous Blood Culture - Final NO GROWTH AFTER 5 DAYS INCUBATION 06/28/15 17:30 Sputum - Endotrachea Suction/Ventilator Gram Stain - Final 06/28/15 17:30 Sputum - Endotrachea Suction/Ventilator Sputum Culture - Final NORMAL RESPIRATORY ARMAND 06/27/15 20:30 Urine - Urine Schwartz Urine Culture - Final NO GROWTH OBTAINED 06/28/15 10:00 Urine For Antigen Detection Legionella Antigen - Final 06/28/15 10:00 Urine For Antigen Detection Streptococcus pneumoniae Antigen (M - Final A/P Acute Lower Diverticular GI Bleed Acute Blood Loss Anemia Acute Respiratory Failure Acute CVA s/p Pneumonia HTN DM CKD - monitor CBC, coags - protonix - s/p antibiotics - ensure large bore peripheral access - DVT/GI prophylaxis - poor prognosis for meaningful recovery - palliative care - continue ICU monitoring - need trach and peg if in line with family wishes Boerem ACNP CCT 35"
[2015-07-11 08:05] LABS: ARTERIAL BLOOD GAS pH 7.44 (7.35-7.45)
[2015-07-11 08:06] LABS: ALLENS TEST POSITIVE; ART PUNCT SITE RIGHT RADIAL; ARTERIAL BLD GAS O2 SATURATION 99.1 % (90-98.9); ARTERIAL BLOOD GAS BASE EXCESS 3.8 meq/l (-2-2); ARTERIAL BLOOD GAS HCO3 27.8 meq/L (22-26); LPM/O2% 30%; MECH. VENT. YES; PT. ON O2? YES; TYPE OF O2 VENTILATOR; VENT RATE 10; VT/PRESS 500
--- NOTE | 2015-07-11 08:23 | PN ---
Progress Note (short form) - Note Progress Note: Subjective: intubated .still unconscious. per RN , had HTN over night and received IV lopressor Objective: Last Vital Signs Temp Pulse Resp BP Pulse Ox 99 F 81 16 153/69 99 07/11/15 06:00 07/11/15 06:00 07/11/15 06:20 07/11/15 06:00 07/10/15 20:29 Physical Exam: NAD , intubated, non responsive even to sternal rub CV: RRR, HR in 110s lungs: CTAB ext : no edema on legs. abd : soft, NT, ND , nl BS , surgical wound with navi on neuro : unconscious, non responsive to sternal rub.no spontaneous movements in ext . reflexes : 0biceps b/l , 0 knee jerk b/l . pupils are round and equal and reactive to light no facial droop, Labs: Laboratory Results - last 24 hr 07/10/15 07/10/15 07/11/15 11:40 17:08 00:22 WBC RBC Hgb Hct MCV MCHC RDW Plt Count MPV INR Anticoagulation Therapy Puncture Site ABG pH ABG pCO2 at Pt Temp ABG pO2 at Pt Temp ABG HCO3 ABG O2 Sat (Measured) ABG O2 Content ABG Base Excess Izaiah Test O2 Delivery Device Oxygen Flow Rate Vent Mode Vent Rate Mechanical Rate PEEP Pressure Support Vent Sodium Potassium Chloride Carbon Dioxide Anion Gap BUN Creatinine POC Glucometer 341.06733 304.72225 273.05914 Random Glucose Calcium Phosphorus Magnesium 07/11/15 07/11/15 05:20 07:07 WBC 12.7 H RBC 2.88 L Hgb 8.6 L Hct 25.7 L MCV 89.3 MCHC 33.4 RDW 14.9 Plt Count 317 MPV 7.6 INR 1.26 H Anticoagulation Therapy Y Puncture Site Right radial ABG pH 7.44 ABG pCO2 at Pt Temp 42.1 ABG pO2 at Pt Temp 113.0 H D ABG HCO3 27.8 H ABG O2 Sat (Measured) 99.1 H ABG O2 Content 13.3 L ABG Base Excess 3.8 H Izaiah Test Positive O2 Delivery Device Ventilator Oxygen Flow Rate 30% Vent Mode A/c Vent Rate 10 Mechanical Rate Yes PEEP 5.0 Pressure Support Vent 500 Sodium 143 Potassium 4.1 Chloride 108 H Carbon Dioxide 28 Anion Gap 7 L BUN 15 Creatinine 0.8 POC Glucometer Random Glucose 236 H Calcium 8.1 L Phosphorus 3.9 Magnesium 1.9 Assessment/Plan: This is a 75yo M with PMHx HTN, DM and inguinal hernia now presenting with dark tarry stool and BRBPR with epidose of syncope, he was admitted to ICU, continued to bleed despite intervention during colonoscopy . he ended up having R hemicolectomy . now off sedation , not waking up, with possible anoxic brain injury and stroke 1- Lower GI bleed :post op day 11 s/p R hemicolectomy - stable hb , no further bleed - cont PPI 2- AMS , inability to extubate , off sedation but no responsiveness . possible anoxic brain injury and CVA still has brain stem reflexes poor prognosis family to decide about PEG and trach 3- leukocytosis : slightly improved today , received Abx for possible asp PNA . developed leuocytosis , and diarrhea , now with positive c diff antigen instool. d/w Dr. Raymond, will treat and isolate 4- HTN: BP cont to be elevated -cont lisiopril and increase norvasc - cont metoprolol through NG. if BP remains elevated , will increase BB - PRN lopressor IV - trop nl , card c/s is still pending due to EKG changes 5- hypernatremia :resolved 6- DAVID : due to pre-renal azotemia , resolved 7-DM : cont SSI 8- electrolyte Abn : resolved DVT PX : SCds , can't use lovenox due to bleeding ICU level of care critical time spent 30 min will arrange for a family meeting when family is ready
[2015-07-11] MEDS: PANTOPRAZOLE SODIUM 40 MG in SODIUM CHLORIDE 100 ML IVPB SCH ×2 (09:22→22:00)
[2015-07-11] MEDS: LISINOPRIL 10 MG TABLET (FP) PO SCH (09:23)
[2015-07-11] MEDS: METOPROLOL TARTRATE 25 MG TABLET (FP) PO SCH ×2 (09:23→22:00)
[2015-07-11] MEDS: amLODIPine BESYLATE 5 MG TABLET (FP) PO SCH (09:23)
[2015-07-11] MEDS: METRONIDAZOLE 500 MG PREMIXED 100 ML IVPB SCH ×2 (12:46→17:06)
[2015-07-11] MEDS: MULTIVITAMINS THERAPEUTIC PO SCH (12:47)
[2015-07-11] MEDS: amLODIPine BESYLATE 10 MG TABLET (FP) PO SCH (12:47)
[2015-07-11] MEDS: CHLORHEXIDINE GLUCONATE 4% CLEANSER FOR DECOLONIZATION TP SCH (22:00)
[2015-07-12] MEDS: INSULIN SLIDING SCALE (NOVOLOG) 1 VIAL SQ SCH ×4 (00:07→18:04)
[2015-07-12] MEDS: METRONIDAZOLE 500 MG PREMIXED 100 ML IVPB SCH ×3 (02:15→18:04)
[2015-07-12 06:43] LABS: BASOPHIL 0.7 % (0-2.0); EOSINOPHIL 6.8 % (0-4.5); MCH 29.5 pg (25.7-33.7); MCHC 33.1 g/dl (32.0-35.9); MEAN CELL VOLUME 89.1 fl (80-96); MEAN PLT VOLUME 7.7 fl (7.5-11.1); NEUTROPHILS 78.3 % (42.8-82.8); PLATELET COUNT 331 K/MM3 (134-434); RDW 14.4 % (11.9-15.9); WHITE BLOOD COUNT 12.8 K/mm3 (4.0-10.0)
[2015-07-12] MEDS: MIDAZOLAM HCL 2 MG/2 ML SINGLE DOSE VIAL IVPUSH PRN (06:49)
[2015-07-12 07:01] LABS: ALBUMIN 2.2 g/dl (3.5-5.0); ALK PHOS 75 U/L (50-136); ANION GAP 6 (8-16); BILIRUBIN,TOTAL 0.2 mg/dL (0.2-1.0); CALCIUM 8.2 mg/dL (8.5-10.1); CO2 31 mmol/L (21-32); CREATININE 0.8 mg/dL (0.6-1.3); GLUCOSE,RANDOM 253 mg/dL (74-106); MAGNESIUM 1.7 mg/dL (1.8-2.4); PHOSPHOROUS 3.9 mg/dL (2.5-4.9); SGOT/AST 17 U/L (15-37); SGPT/ALT 23 U/L (12-78); TOT PROT 5.5 g/dl (6.4-8.2)
--- NOTE | 2015-07-12 09:27 | PN ---
Progress Note (short form) - Note Progress Note: Subjective: intubated .still unconscious. Hypertensive over night , no events Objective: Last Vital Signs Temp Pulse Resp BP Pulse Ox 98.8 F 96 H 21 167/77 99 07/12/15 05:17 07/12/15 05:17 07/12/15 06:10 07/12/15 05:17 07/11/15 21:50 Physical Exam: NAD , intubated, non responsive even to sternal rub . opens his eyes spontaneously CV: RRR, no MRG lungs: CTAB ext : no edema on legs. abd : soft, NT, ND , nl BS , surgical wound with navi on neuro : unconscious, non responsive to sternal rub.no spontaneous movements in ext . reflexes , 0 knee jerk b/l . pupils are round and equal and reactive to light , positive corneal reflex no facial droop, Labs: Laboratory Results - last 24 hr 07/11/15 07/11/15 07/11/15 13:27 16:56 22:48 WBC RBC Hgb Hct MCV MCHC RDW Plt Count MPV Neutrophils % Lymphocytes % Monocytes % Eosinophils % Basophils % Sodium Potassium Chloride Carbon Dioxide Anion Gap BUN Creatinine Creat Clearance w eGFR POC Glucometer 256.25584 214.47902 296.43877 Random Glucose Calcium Phosphorus Magnesium Total Bilirubin AST ALT Alkaline Phosphatase Total Protein Albumin 07/12/15 07/12/15 05:14 05:20 WBC 12.8 H RBC 3.01 L Hgb 8.9 L Hct 26.8 L MCV 89.1 MCHC 33.1 RDW 14.4 Plt Count 331 MPV 7.7 Neutrophils % 78.3 Lymphocytes % 8.6 Monocytes % 5.6 Eosinophils % 6.8 H Basophils % 0.7 Sodium 138 Potassium 3.7 Chloride 101 Carbon Dioxide 31 Anion Gap 6 L BUN 14 Creatinine 0.8 Creat Clearance w eGFR > 60 POC Glucometer [phone] Random Glucose 253 H Calcium 8.2 L Phosphorus 3.9 Magnesium 1.7 L Total Bilirubin 0.2 AST 17 D ALT 23 Alkaline Phosphatase 75 D Total Protein 5.5 L Albumin 2.2 L Assessment/Plan: This is a 75yo M with PMHx HTN, DM and inguinal hernia now presenting with dark tarry stool and BRBPR with epidose of syncope, he was admitted to ICU, continued to bleed despite intervention during colonoscopy . he ended up having R hemicolectomy . now off sedation , not waking up, with possible anoxic brain injury and stroke 1- Lower GI bleed: post op day 12 s/p R hemicolectomy - stable hb , no further bleed - cont PPI 2- AMS , inability to extubate , off sedation but no responsiveness . possible anoxic brain injury and CVA still has brain stem reflexes . opens his eyes today poor prognosis family to decide about PEG and trach after d/w ICU staff 3- leukocytosis : slightly improved today , received Abx for possible asp PNA . developed leuocytosis , and diarrhea , now with positive c diff antigen in stool. cont flagyl day 12/12 4- HTN: BP cont to be elevated -cont lisiopril and norvasc - increase metoprolol through NG. - trop nl , card c/s is still pending due to EKG changes 5- hypernatremia :resolved 6- DAVID : due to pre-renal azotemia , resolved 7-DM : cont SSI 8- electrolyte Abn : replete Mg DVT PX : SCds , can't use lovenox due to bleeding ICU level of care critical time spent 30 min will arrange for a family meeting when family is ready
[2015-07-12] MEDS: amLODIPine BESYLATE 10 MG TABLET (FP) PO SCH (09:47)
[2015-07-12] MEDS: METOPROLOL TARTRATE 25 MG TABLET (FP) PO SCH ×2 (09:47→21:36)
[2015-07-12] MEDS: LISINOPRIL 10 MG TABLET (FP) PO SCH (09:47)
[2015-07-12] MEDS: PANTOPRAZOLE SODIUM 40 MG in SODIUM CHLORIDE 100 ML IVPB SCH ×2 (09:47→21:37)
--- NOTE | 2015-07-12 10:35 | PN ---
Progress Note (short form) - Note Progress Note: PULMONARY/CCM Pt seen and examined in the ICU. Remains intubated, unresponsive. Clinically unchanged. Last Vital Signs Temp Pulse Resp BP Pulse Ox 98.8 F 96 H 22 167/77 95 07/12/15 05:17 07/12/15 05:17 07/12/15 09:48 07/12/15 05:17 07/12/15 09:48 Intake & Output 07/09/15 07/10/15 07/11/15 07/12/15 23:59 23:59 23:59 23:59 Intake Total 2780 1890 2640 690 Output Total 5472 453 8173 700 Balance 980 990 240 -10 Weight 182 lb 179 lb 1 oz 178 lb 2 oz 174 lb 9.6 oz Gen: intubated, poorly responsive Heart: tachycardic, regular Lung: decreased breath sounds at the bases Abd: soft, nontender, dressing dry Ext: + edema CBC, BMP 07/12/15 05:20 07/12/15 05:20 Active Medications Amlodipine Besylate (Norvasc -) 10 mg PO DAILY [facility] Last Admin: 07/12/15 09:47 Dose: 10 mg Chlorhexidine Gluconate (Hibiclens For Decolonization -) 1 applic TP HS [facility] Last Admin: 07/11/15 22:00 Dose: 1 applic Pantoprazole Sodium 40 mg/ (Sodium Chloride) 100 mls @ 200 mls/hr IVPB BID [facility] Last Admin: 07/12/15 09:47 Dose: 200 mls/hr Metronidazole (Flagyl 500mg Premixed Ivpb -) 100 mls @ 100 mls/hr IVPB Q8H-IV [facility] Last Admin: 07/12/15 09:47 Dose: 100 mls/hr Insulin Aspart (Novolog Flexpen Sliding Scale -) 0 units SQ Q6HPO [facility] PRN Reason: Protocol Last Admin: 07/12/15 06:14 Dose: 6 units Lisinopril (Prinivil -) 10 mg PO DAILY [facility] Last Admin: 07/12/15 09:47 Dose: 10 mg Metoprolol Tartrate (Lopressor -) 25 mg PO BID [facility] Last Admin: 07/12/15 09:47 Dose: 25 mg Metoprolol Tartrate (Lopressor Injection -) 5 mg IVPUSH Q6H PRN PRN Reason: HYPERTENSION Last Admin: 07/11/15 04:00 Dose: 5 mg Multivitamins (Thera-Plus -) 5 ml PO DAILY [facility] Last Admin: 07/11/15 12:47 Dose: 5 ml Ondansetron HCl (Zofran Injection -) 4 mg IVPB Q6H PRN PRN Reason: NAUSEA A/P Acute Lower Diverticular GI Bleed Acute Blood Loss Anemia Acute Respiratory Failure Acute CVA s/p Pneumonia HTN DM CKD - monitor CBC, coags - protonix - continue antibiotics - ensure large bore peripheral access - DVT/GI prophylaxis - poor prognosis for meaningful recovery - d/w family goals of care - left message on HCP voicemail to discuss goals of care
[2015-07-12] MEDS: MULTIVITAMINS THERAPEUTIC PO SCH (15:23)
[2015-07-12] MEDS: CHLORHEXIDINE GLUCONATE 4% CLEANSER FOR DECOLONIZATION TP SCH (21:36)
[2015-07-13] MEDS: INSULIN SLIDING SCALE (NOVOLOG) 1 VIAL SQ SCH ×5 (00:30→23:02)
[2015-07-13] MEDS: METRONIDAZOLE 500 MG PREMIXED 100 ML IVPB SCH ×3 (02:00→17:35)
[2015-07-13 06:12] LABS: BASOPHIL 0.6 % (0-2.0); EOSINOPHIL 5.9 % (0-4.5); MCH 29.8 pg (25.7-33.7); MCHC 33.5 g/dl (32.0-35.9); MEAN CELL VOLUME 89.2 fl (80-96); MEAN PLT VOLUME 7.7 fl (7.5-11.1); PLATELET COUNT 348 K/MM3 (134-434); RDW 14.9 % (11.9-15.9); WHITE BLOOD COUNT 13.5 K/mm3 (4.0-10.0)
[2015-07-13 07:17] LABS: ALBUMIN 2.2 g/dl (3.5-5.0); ALK PHOS 75 U/L (50-136); ANION GAP 6 (8-16); BILIRUBIN,TOTAL 0.2 mg/dL (0.2-1.0); CALCIUM 8.3 mg/dL (8.5-10.1); CO2 32 mmol/L (21-32); CREATININE 0.9 mg/dL (0.6-1.3); GLUCOSE,RANDOM 158 mg/dL (74-106); PHOSPHOROUS 4.3 mg/dL (2.5-4.9); SGOT/AST 17 U/L (15-37); SGPT/ALT 18 U/L (12-78); TOT PROT 5.7 g/dl (6.4-8.2)
--- NOTE | 2015-07-13 09:00 | PN ---
Progress Note (short form) - Note Progress Note: PULMONARY/CCM Pt seen and examined in the ICU. Remains intubated, unresponsive. Clinically unchanged. Spoke to daughter Carole yesterday regarding pt's condition and prognosis and need for trach/PEG if they would like to continue medical care. She said she would need to speak to her sister and get back to us. Last Vital Signs Temp Pulse Resp BP Pulse Ox 99.4 F 89 18 157/78 100 07/13/15 06:00 07/13/15 08:45 07/13/15 08:45 07/13/15 07:30 07/13/15 08:45 Intake & Output 07/10/15 07/11/15 07/12/15 07/13/15 23:59 23:59 23:59 23:59 Intake Total 1890 2640 1790 900 Output Total 900 2400 1600 1000 Balance 990 240 190 -100 Weight 179 lb 1 oz 178 lb 2 oz 174 lb 9.6 oz 174 lb Gen: intubated, poorly responsive Heart: tachycardic, regular Lung: decreased breath sounds at the bases Abd: soft, nontender, dressing dry Ext: + edema CBC, BMP 07/13/15 05:00 07/13/15 05:00 Active Medications Amlodipine Besylate (Norvasc -) 10 mg PO DAILY [facility] Last Admin: 07/12/15 09:47 Dose: 10 mg Chlorhexidine Gluconate (Hibiclens For Decolonization -) 1 applic TP HS [facility] Last Admin: 07/12/15 21:36 Dose: 1 applic Pantoprazole Sodium 40 mg/ (Sodium Chloride) 100 mls @ 200 mls/hr IVPB BID [facility] Last Admin: 07/12/15 21:37 Dose: 200 mls/hr Metronidazole (Flagyl 500mg Premixed Ivpb -) 100 mls @ 100 mls/hr IVPB Q8H-IV [facility] Last Admin: 07/13/15 02:00 Dose: 100 mls/hr Insulin Aspart (Novolog Flexpen Sliding Scale -) 0 units SQ Q6HPO [facility] PRN Reason: Protocol Last Admin: 07/13/15 06:01 Dose: 2 units Lisinopril (Prinivil -) 10 mg PO DAILY [facility] Last Admin: 07/12/15 09:47 Dose: 10 mg Metoprolol Tartrate (Lopressor Injection -) 5 mg IVPUSH Q6H PRN PRN Reason: HYPERTENSION Last Admin: 07/11/15 04:00 Dose: 5 mg Metoprolol Tartrate (Lopressor -) 37.5 mg PO BID [facility] Last Admin: 07/12/15 21:36 Dose: 37.5 mg Multivitamins (Thera-Plus -) 5 ml PO DAILY [facility] Last Admin: 07/12/15 15:23 Dose: 5 ml Ondansetron HCl (Zofran Injection -) 4 mg IVPB Q6H PRN PRN Reason: NAUSEA A/P Acute Lower Diverticular GI Bleed Acute Blood Loss Anemia Acute Respiratory Failure Acute CVA s/p Pneumonia HTN DM CKD - monitor CBC, coags - protonix - continue antibiotics - ensure large bore peripheral access - DVT/GI prophylaxis - poor prognosis for meaningful recovery - continue discussions with family re: goals of care
[2015-07-13] MEDS: METOPROLOL TARTRATE 25 MG TABLET (FP) PO SCH ×2 (10:06→22:44)
[2015-07-13] MEDS: amLODIPine BESYLATE 10 MG TABLET (FP) PO SCH (10:06)
[2015-07-13] MEDS: LISINOPRIL 10 MG TABLET (FP) PO SCH (10:06)
[2015-07-13] MEDS: MULTIVITAMINS THERAPEUTIC PO SCH (10:07)
[2015-07-13] MEDS: PANTOPRAZOLE SODIUM 40 MG in SODIUM CHLORIDE 100 ML IVPB SCH ×2 (11:15→22:44)
--- NOTE | 2015-07-13 17:27 | PN ---
Progress Note (short form) - Note Progress Note: Subjective: intubated .still unconscious. no events overnight Objective: Last Vital Signs Temp Pulse Resp BP Pulse Ox 99.1 F 80 21 156/69 100 07/13/15 10:00 07/13/15 16:00 07/13/15 16:00 07/13/15 16:00 07/13/15 08:45 Physical Exam: NAD , intubated, opens his eyes to sternal rub . CV: RRR, no MRG lungs: CTAB ext : no edema on legs. abd : soft, NT, ND , nl BS , surgical wound with navi on neuro : unconscious, .no spontaneous movements in ext . reflexes , 0 knee jerk b/l . pupils are round and equal and reactive to light , positive corneal reflex no facial droop, Labs: Laboratory Results - last 24 hr 07/12/15 07/13/15 07/13/15 17:36 05:00 05:34 WBC 13.5 H RBC 2.95 L Hgb 8.8 L Hct 26.3 L MCV 89.2 MCHC 33.5 RDW 14.9 Plt Count 348 MPV 7.7 Neutrophils % 78.0 Lymphocytes % 8.5 Monocytes % 7.0 Eosinophils % 5.9 H Basophils % 0.6 Sodium 140 Potassium 4.3 Chloride 102 Carbon Dioxide 32 Anion Gap 6 L BUN 15 Creatinine 0.9 Creat Clearance w eGFR > 60 POC Glucometer 352.67066 174.63738 Random Glucose 158 H D Calcium 8.3 L Phosphorus 4.3 Magnesium 2.0 Total Bilirubin 0.2 AST 17 ALT 18 D Alkaline Phosphatase 75 Total Protein 5.7 L Albumin 2.2 L Assessment/Plan: This is a 75yo M with PMHx HTN, DM and inguinal hernia now presenting with dark tarry stool and BRBPR with epidose of syncope, he was admitted to ICU, continued to bleed despite intervention during colonoscopy . he ended up having R hemicolectomy . now off sedation , not waking up, with possible anoxic brain injury and stroke 1- Lower GI bleed: post op day 13 s/p R hemicolectomy - navi to be removed as per d/w Dr. Breaux 2- AMS , inability to extubate , off sedation but no responsiveness . possible anoxic brain injury and CVA pending decision re. PEG and trach 3- leukocytosis : improved, being treated for c diff colitis as he had positive c diff antigen in stool. cont flagyl day 01/09 4- HTN: chnages weremade yesterday -cont lisiopril and norvasc - cont increased dose of metoprolol . 5- hypernatremia :resolved 6- DAVID : due to pre-renal azotemia, resolved 7-DM : cont SSI 8- electrolyte Abn : resolved DVT PX : SCds , can't use lovenox due to bleeding ICU level of care critical time spent 30 min
[2015-07-13] MEDS: CHLORHEXIDINE GLUCONATE 4% CLEANSER FOR DECOLONIZATION TP SCH (22:43)
[2015-07-14] MEDS: METRONIDAZOLE 500 MG PREMIXED 100 ML IVPB SCH ×3 (02:00→18:31)
[2015-07-14] MEDS: METOPROLOL TARTRATE 25 MG TABLET (FP) PO SCH ×2 (09:40→21:34)
[2015-07-14] MEDS: amLODIPine BESYLATE 10 MG TABLET (FP) PO SCH (09:40)
[2015-07-14] MEDS: LISINOPRIL 10 MG TABLET (FP) PO SCH (09:40)
[2015-07-14] MEDS: MULTIVITAMINS THERAPEUTIC PO SCH (09:40)
[2015-07-14 10:13] LABS: BASOPHIL 0.9 % (0-2.0); EOSINOPHIL 5.3 % (0-4.5); MCH 30.3 pg (25.7-33.7); MCHC 34.1 g/dl (32.0-35.9); MEAN CELL VOLUME 88.8 fl (80-96); NEUTROPHILS 74.8 % (42.8-82.8); PLATELET COUNT 363 K/MM3 (134-434); RDW 14.7 % (11.9-15.9); WHITE BLOOD COUNT 10.7 K/mm3 (4.0-10.0)
[2015-07-14 10:34] LABS: ALBUMIN 2.1 g/dl (3.5-5.0); ALK PHOS 78 U/L (50-136); ANION GAP 8 (8-16); BILIRUBIN,TOTAL 0.2 mg/dL (0.2-1.0); CALCIUM 8.4 mg/dL (8.5-10.1); CO2 31 mmol/L (21-32); CREATININE 0.9 mg/dL (0.6-1.3); GLUCOSE,RANDOM 231 mg/dL (74-106); MAGNESIUM 1.9 mg/dL (1.8-2.4); PHOSPHOROUS 3.6 mg/dL (2.5-4.9); SGOT/AST 17 U/L (15-37); SGPT/ALT 19 U/L (12-78); TOT PROT 5.8 g/dl (6.4-8.2)
[2015-07-14] MEDS: PANTOPRAZOLE SODIUM 40 MG in SODIUM CHLORIDE 100 ML IVPB SCH ×2 (10:45→21:35)
--- NOTE | 2015-07-14 12:06 | PN ---
Progress Note (short form) - Note Progress Note: PULMONARY/CCM Pt seen and examined in the ICU. Remains intubated, unresponsive. Clinically unchanged. No decision made from family yet. Last Vital Signs Temp Pulse Resp BP Pulse Ox 98.8 F 86 18 152/64 99 07/14/15 01:53 07/14/15 03:55 07/14/15 12:03 07/14/15 03:55 07/13/15 20:10 Intake & Output 07/11/15 07/12/15 07/13/15 07/14/15 23:59 23:59 23:59 23:59 Intake Total 2640 1790 1950 Output Total 2400 1600 1900 Balance 240 190 50 Weight 178 lb 2 oz 174 lb 9.6 oz 174 lb Gen: intubated, poorly responsive Heart: RRR Lung: decreased breath sounds at the bases Abd: soft, nontender, dressing dry Ext: + edema CBC, BMP 07/14/15 06:00 07/14/15 06:00 Active Medications Amlodipine Besylate (Norvasc -) 10 mg PO DAILY [facility] Last Admin: 07/13/15 10:06 Dose: 10 mg Chlorhexidine Gluconate (Hibiclens For Decolonization -) 1 applic TP HS [facility] Last Admin: 07/13/15 22:43 Dose: 1 applic Pantoprazole Sodium 40 mg/ (Sodium Chloride) 100 mls @ 200 mls/hr IVPB BID [facility] Last Admin: 07/13/15 22:44 Dose: 200 mls/hr Metronidazole (Flagyl 500mg Premixed Ivpb -) 100 mls @ 100 mls/hr IVPB Q8H-IV [facility] Last Admin: 07/14/15 02:00 Dose: 100 mls/hr Insulin Aspart (Novolog Flexpen Sliding Scale -) 0 units SQ Q6HPO [facility] PRN Reason: Protocol Last Admin: 07/13/15 23:02 Dose: 8 units Lisinopril (Prinivil -) 10 mg PO DAILY [facility] Last Admin: 07/13/15 10:06 Dose: 10 mg Metoprolol Tartrate (Lopressor Injection -) 5 mg IVPUSH Q6H PRN PRN Reason: HYPERTENSION Last Admin: 07/11/15 04:00 Dose: 5 mg Metoprolol Tartrate (Lopressor -) 37.5 mg PO BID [facility] Last Admin: 07/13/15 22:44 Dose: 37.5 mg Multivitamins (Thera-Plus -) 5 ml PO DAILY [facility] Last Admin: 07/13/15 10:07 Dose: 5 ml Ondansetron HCl (Zofran Injection -) 4 mg IVPB Q6H PRN PRN Reason: NAUSEA A/P Acute Lower Diverticular GI Bleed Acute Blood Loss Anemia Acute Respiratory Failure Acute CVA s/p Pneumonia HTN DM CKD - monitor CBC, coags - protonix - continue antibiotics - ensure large bore peripheral access - DVT/GI prophylaxis - poor prognosis for meaningful recovery - continue discussions with family re: goals of care
[2015-07-14] MEDS: INSULIN SLIDING SCALE (NOVOLOG) 1 VIAL SQ SCH ×2 (12:46→18:39)
--- NOTE | 2015-07-14 18:12 | PN ---
Progress Note (short form) - Note Progress Note: Subjective: intubated .still unconscious. no events overnight Objective: Last Vital Signs Temp Pulse Resp BP Pulse Ox 98.8 F 108 H 22 169/83 99 07/14/15 01:53 07/14/15 16:00 07/14/15 17:57 07/14/15 16:00 07/14/15 10:00 Physical Exam: NAD , intubated, opens his eyes to sternal rub . CV: RRR, no MRG lungs: CTAB ext : no edema on legs. abd : soft, NT, ND , nl BS , surgical wound with navi on neuro : unconscious, .no spontaneous movements in ext . pupils are round and equal and reactive to light no facial droop, Labs: Laboratory Results - last 24 hr 07/13/15 07/13/15 07/13/15 13:00 17:35 22:23 WBC RBC Hgb Hct MCV MCHC RDW Plt Count MPV Neutrophils % Lymphocytes % Monocytes % Eosinophils % Basophils % Sodium Potassium Chloride Carbon Dioxide Anion Gap BUN Creatinine Creat Clearance w eGFR POC Glucometer 263.97402 295.50139 301.37214 Random Glucose Calcium Phosphorus Magnesium Total Bilirubin AST ALT Alkaline Phosphatase Total Protein Albumin 07/14/15 07/14/15 07/14/15 04:55 06:00 11:56 WBC 10.7 H RBC 2.88 L Hgb 8.7 L Hct 25.5 L MCV 88.8 MCHC 34.1 RDW 14.7 Plt Count 363 MPV 8.0 Neutrophils % 74.8 Lymphocytes % 11.3 D Monocytes % 7.7 Eosinophils % 5.3 H Basophils % 0.9 Sodium 139 Potassium 4.0 Chloride 100 Carbon Dioxide 31 Anion Gap 8 BUN 16 Creatinine 0.9 Creat Clearance w eGFR > 60 POC Glucometer 262.50458 250.75934 Random Glucose 231 H D Calcium 8.4 L Phosphorus 3.6 Magnesium 1.9 Total Bilirubin 0.2 AST 17 ALT 19 Alkaline Phosphatase 78 Total Protein 5.8 L Albumin 2.1 L Assessment/Plan: This is a 75yo M with PMHx HTN, DM and inguinal hernia now presenting with dark tarry stool and BRBPR with epidose of syncope, he was admitted to ICU, continued to bleed despite intervention during colonoscopy . he ended up having R hemicolectomy . now off sedation , not waking up, with possible anoxic brain injury and stroke 1- Lower GI bleed: post op day 14 s/p R hemicolectomy - navi were removed yesterday 2- AMS , inability to extubate , off sedation but no responsiveness . possible anoxic brain injury and CVA pending decision re. PEG and trach and goals of care 3- leukocytosis : improved, being treated for c diff colitis as he had positive c diff antigen in stool. cont flagyl day 02/09 4- HTN: BP cont to be elevated but improved -cont lisiopril and norvasc - cont increased dose of metoprolol . will make new changes tomorrow if needed 5- hypernatremia :resolved 6- DAVID : due to pre-renal azotemia, resolved 7-DM : cont SSI 8- electrolyte Abn : resolved DVT PX : SCds , can't use lovenox due to bleeding ICU level of care critical time spent 30 min d/w Dr. Jordan poor prognosis
[2015-07-14] MEDS: CHLORHEXIDINE GLUCONATE 4% CLEANSER FOR DECOLONIZATION TP SCH (21:34)
[2015-07-15] MEDS: INSULIN SLIDING SCALE (NOVOLOG) 1 VIAL SQ SCH ×4 (00:10→18:16)
[2015-07-15] MEDS: METRONIDAZOLE 500 MG PREMIXED 100 ML IVPB SCH ×3 (01:38→18:17)
[2015-07-15] MEDS: METOPROLOL TARTRATE 5 MG/5 ML VIAL IVPUSH PRN (02:25)
[2015-07-15 05:53] LABS: BASOPHIL 0.8 % (0-2.0); EOSINOPHIL 2.9 % (0-4.5); MCH 29.2 pg (25.7-33.7); MCHC 32.7 g/dl (32.0-35.9); MEAN CELL VOLUME 89.5 fl (80-96); MEAN PLT VOLUME 8.1 fl (7.5-11.1); NEUTROPHILS 77.3 % (42.8-82.8); PLATELET COUNT 407 K/MM3 (134-434); RDW 14.8 % (11.9-15.9); WHITE BLOOD COUNT 13.4 K/mm3 (4.0-10.0)
[2015-07-15 06:14] LABS: CALCIUM 8.4 mg/dL (8.5-10.1)
[2015-07-15 06:19] LABS: ALBUMIN 2.3 g/dl (3.5-5.0); ALK PHOS 90 U/L (50-136); ANION GAP 6 (8-16); BILIRUBIN,TOTAL 0.3 mg/dL (0.2-1.0); CO2 33 mmol/L (21-32); GLUCOSE,RANDOM 274 mg/dL (74-106); MAGNESIUM 1.9 mg/dL (1.8-2.4); PHOSPHOROUS 3.7 mg/dL (2.5-4.9); SGPT/ALT 22 U/L (12-78); TOT PROT 6.4 g/dl (6.4-8.2)
[2015-07-15 07:17] LABS: CREATININE 0.6 mg/dL (0.6-1.3)
[2015-07-15 07:18] LABS: SGOT/AST 37 U/L (15-37)
--- NOTE | 2015-07-15 09:20 | PN ---
Progress Note (short form) - Note Progress Note: Progress Note PULM/CCM Patient Name: CRUZ LEE Date of : 1940 Patient Status: Inpatient Attending Provider: Yolis Arthur Patient seen and examined in the ICU. Intubated on AC Mode of vent. Remains minimally responsive to noxious stimuli. Remains off all sedation. No significant change in his poor mental status. Myoclonic jerks intermittently noted. Intake & Output 07/12/15 07/13/15 07/14/15 07/15/15 23:59 23:59 23:59 23:59 Intake Total 1790 1950 1095 1020 Output Total 1600 1900 400 500 Balance 190 50 695 520 Weight 174 lb 9.6 oz 174 lb 174 lb 8 oz Last Vital Signs Temp Pulse Resp BP Pulse Ox 98.6 F 100 H 18 177/84 100 07/15/15 06:00 07/15/15 06:00 07/15/15 08:32 07/15/15 06:00 07/15/15 08:32 Active Medications Amlodipine Besylate (Norvasc -) 10 mg PO DAILY [facility] Last Admin: 07/14/15 09:40 Dose: 10 mg Chlorhexidine Gluconate (Hibiclens For Decolonization -) 1 applic TP HS [facility] Last Admin: 07/14/15 21:34 Dose: 1 applic Pantoprazole Sodium 40 mg/ (Sodium Chloride) 100 mls @ 200 mls/hr IVPB BID [facility] Last Admin: 07/14/15 21:35 Dose: 200 mls/hr Metronidazole (Flagyl 500mg Premixed Ivpb -) 100 mls @ 100 mls/hr IVPB Q8H-IV [facility] Last Admin: 07/15/15 01:38 Dose: 100 mls/hr Insulin Aspart (Novolog Flexpen Sliding Scale -) 0 units SQ Q6HPO [facility] PRN Reason: Protocol Last Admin: 07/15/15 07:07 Dose: 8 units Lisinopril (Prinivil -) 10 mg PO DAILY [facility] Last Admin: 07/14/15 09:40 Dose: 10 mg Metoprolol Tartrate (Lopressor Injection -) 5 mg IVPUSH Q6H PRN PRN Reason: HYPERTENSION Last Admin: 07/15/15 02:25 Dose: 5 mg Metoprolol Tartrate (Lopressor -) 37.5 mg PO BID [facility] Last Admin: 07/14/15 21:34 Dose: 37.5 mg Multivitamins (Thera-Plus -) 5 ml PO DAILY [facility] Last Admin: 07/14/15 09:40 Dose: 5 ml Ondansetron HCl (Zofran Injection -) 4 mg IVPB Q6H PRN PRN Reason: NAUSEA Gen: intubated, minimally repsonsive Heart: S1S2 Lung: decreased breath sounds at the bases Abd: soft, (+) BS Ext: no edema Laboratory Results - last 24 hr 07/14/15 07/14/15 07/14/15 04:55 06:00 11:56 WBC 10.7 H RBC 2.88 L Hgb 8.7 L Hct 25.5 L MCV 88.8 MCHC 34.1 RDW 14.7 Plt Count 363 MPV 8.0 Neutrophils % 74.8 Lymphocytes % 11.3 D Monocytes % 7.7 Eosinophils % 5.3 H Basophils % 0.9 Sodium 139 Potassium 4.0 Chloride 100 Carbon Dioxide 31 Anion Gap 8 BUN 16 Creatinine 0.9 Creat Clearance w eGFR > 60 POC Glucometer 262.42764 250.19481 Random Glucose 231 H D Calcium 8.4 L Phosphorus 3.6 Magnesium 1.9 Total Bilirubin 0.2 AST 17 ALT 19 Alkaline Phosphatase 78 Total Protein 5.8 L Albumin 2.1 L 07/14/15 07/14/15 07/15/15 18:38 21:43 05:00 WBC 13.4 H RBC 3.28 L Hgb 9.6 L D Hct 29.4 L D MCV 89.5 MCHC 32.7 RDW 14.8 Plt Count 407 MPV 8.1 Neutrophils % 77.3 Lymphocytes % 11.5 Monocytes % 7.5 Eosinophils % 2.9 Basophils % 0.8 Sodium 140 Potassium 4.7 Chloride 101 Carbon Dioxide 33 H Anion Gap 6 L BUN 16 Creatinine 0.6 D Creat Clearance w eGFR > 60 POC Glucometer [phone] Random Glucose 274 H Calcium 8.4 L Phosphorus 3.7 Magnesium 1.9 Total Bilirubin 0.3 D AST 37 D ALT 22 Alkaline Phosphatase 90 Total Protein 6.4 Albumin 2.3 L CXR: No gross change IMP: Acute Brainstem CVA S/P Right Hemicoletomy due to Acute Lower Diverticular GI Bleed Acute Blood Loss Anemia Acute Respiratory Failure Pneumonia likely aspiration HTN DM CKD PLAN: - BP control - monitor CBC - protonix - Antibiotics per ID - Enteral feeds as tolerated - DVT/GI prophylaxis - Anti-platelets are on hold due to severe bleeding that required surgery and the fact the his H&H is slowly trending down - Need GOC discussion with family as his overall prognosis for meaningful recovery is grave - > If family cannot come to a decision -> May need Ethics consult Dr Agosto CCTime [phone]"
[2015-07-15] MEDS: PANTOPRAZOLE SODIUM 40 MG in SODIUM CHLORIDE 100 ML IVPB SCH ×2 (09:56→22:10)
[2015-07-15] MEDS: LISINOPRIL 10 MG TABLET (FP) PO SCH (09:59)
[2015-07-15] MEDS: MULTIVITAMINS THERAPEUTIC PO SCH (10:00)
[2015-07-15] MEDS: amLODIPine BESYLATE 10 MG TABLET (FP) PO SCH (10:00)
--- NOTE | 2015-07-15 11:08 | PN ---
Progress Note (short form) - Note Progress Note: Subjective: intubated .still unconscious. had a fever last night . still with diarrhea. Objective: Last Vital Signs Temp Pulse Resp BP Pulse Ox 98.6 F 96 H 18 177/84 100 07/15/15 06:00 07/15/15 10:53 07/15/15 10:00 07/15/15 06:00 07/15/15 10:53 Physical Exam: NAD , intubated, deos not open his eyes today to sturnal rub CV: RRR, no MRG lungs: CTAB , decreased breath sounds at bases b/l ext : no edema on legs. abd : soft, NT, ND , nl BS neuro : unconscious, .no spontaneous movements in ext . pupils are round and equal and reactive to light, positive corneal reflexes no facial droop, Labs: Laboratory Results - last 24 hr 07/14/15 07/14/15 07/14/15 04:55 11:56 18:38 WBC RBC Hgb Hct MCV MCHC RDW Plt Count MPV Neutrophils % Lymphocytes % Monocytes % Eosinophils % Basophils % Sodium Potassium Chloride Carbon Dioxide Anion Gap BUN Creatinine Creat Clearance w eGFR POC Glucometer 262.65177 250.61981 285.10857 Random Glucose Calcium Phosphorus Magnesium Total Bilirubin AST ALT Alkaline Phosphatase Total Protein Albumin 07/14/15 07/15/15 21:43 05:00 WBC 13.4 H RBC 3.28 L Hgb 9.6 L D Hct 29.4 L D MCV 89.5 MCHC 32.7 RDW 14.8 Plt Count 407 MPV 8.1 Neutrophils % 77.3 Lymphocytes % 11.5 Monocytes % 7.5 Eosinophils % 2.9 Basophils % 0.8 Sodium 140 Potassium 4.7 Chloride 101 Carbon Dioxide 33 H Anion Gap 6 L BUN 16 Creatinine 0.6 D Creat Clearance w eGFR > 60 POC Glucometer 225.08766 Random Glucose 274 H Calcium 8.4 L Phosphorus 3.7 Magnesium 1.9 Total Bilirubin 0.3 D AST 37 D ALT 22 Alkaline Phosphatase 90 Total Protein 6.4 Albumin 2.3 L Assessment/Plan: This is a 75yo M with PMHx HTN, DM and inguinal hernia now presenting with dark tarry stool and BRBPR with epidose of syncope, he was admitted to ICU, continued to bleed despite intervention during colonoscopy . he ended up having R hemicolectomy . now off sedation , not waking up, with possible anoxic brain injury and stroke 1- Lower GI bleed: post op day 15 s/p R hemicolectomy - navi were removed on 07/13 - no further bleed 2- AMS , inability to extubate , off sedation but no responsiveness . possible anoxic brain injury and CVA pending decision re. PEG and trach and goals of care . spoke to daughter Carole over the phone, she will come to ICU today and will discuss 3- leukocytosis : improved, being treated for c diff colitis as he had positive c diff antigen in stool. cont flagyl day had fever last night , and on 07/13 . will send blood cx cxray with no ASD 4- HTN: BP cont to be elevated but improved -cont lisiopril and norvasc - increase metoprolol to 50 BID 5- hypernatremia :resolved 6- DAVID : due to pre-renal azotemia, resolved 7-DM : cont SSI 8- electrolyte Abn : resolved DVT PX : SCds , can't use lovenox due to recent bleeding ICU level of care critical time spent 35 min poor prognosis I encouraged sister to get all her sisters for a family meeting for a decision about either withdrawal of care or PEG /Trach . will discuss further this evening
[2015-07-15] MEDS: METOPROLOL TARTRATE 25 MG TABLET (FP) PO SCH (12:13)
[2015-07-15] MEDS: ACETAMINOPHEN 650 MG/20.3 ML ORAL SOLUTION (CUPS) NGT PRN (18:16)
--- NOTE | 2015-07-15 19:11 | HOSP ---
Subjective - Review of Symptoms Events since last encounter: family meeting with daughter Becca . goals of care discussed, current situation and poor prognosis were explained . family did not make a decision as they are concerned about lack of insurance in case he is tached and PEG'd and has to go to LTAC. . family reassured that pt will get the care he needs here pending placement if care is not withdrawn. social work c/s placed . Physical Examination Vital Signs: Vital Signs Temperature 100.7 F H 07/15/15 18:00 Pulse Rate 101 H 07/15/15 18:00 Respiratory Rate 20 07/15/15 18:47 Blood Pressure 147/69 07/15/15 18:00 O2 Sat by Pulse Oximetry (%) 100 07/15/15 10:53 Labs: CBC, BMP 07/15/15 05:00 07/15/15 05:00
[2015-07-15] MEDS: CHLORHEXIDINE GLUCONATE 4% CLEANSER FOR DECOLONIZATION TP SCH (22:07)
[2015-07-15] MEDS: METOPROLOL TARTRATE 50 MG TABLET (FP) PO SCH (22:08)
[2015-07-16] MEDS: INSULIN SLIDING SCALE (NOVOLOG) 1 VIAL SQ SCH ×5 (00:09→23:31)
[2015-07-16] MEDS: METRONIDAZOLE 500 MG PREMIXED 100 ML IVPB SCH ×3 (01:14→18:01)
[2015-07-16] MEDS: ACETAMINOPHEN 650 MG/20.3 ML ORAL SOLUTION (CUPS) NGT PRN ×2 (06:22→22:26)
[2015-07-16] MEDS: METOPROLOL TARTRATE 5 MG/5 ML VIAL IVPUSH PRN (06:27)
[2015-07-16 06:38] LABS: MCH 29.6 pg (25.7-33.7); MCHC 32.8 g/dl (32.0-35.9); MEAN CELL VOLUME 90.1 fl (80-96); MEAN PLT VOLUME 7.8 fl (7.5-11.1); PLATELET COUNT 384 K/MM3 (134-434); RDW 14.8 % (11.9-15.9); WHITE BLOOD COUNT 12.8 K/mm3 (4.0-10.0)
[2015-07-16 06:52] LABS: ALBUMIN 2.2 g/dl (3.5-5.0); CALCIUM 8.5 mg/dL (8.5-10.1)
[2015-07-16 06:57] LABS: ALK PHOS 93 U/L (50-136); ANION GAP 6 (8-16); BILIRUBIN,TOTAL 0.2 mg/dL (0.2-1.0); CO2 33 mmol/L (21-32); CREATININE 0.8 mg/dL (0.6-1.3); GLUCOSE,RANDOM 257 mg/dL (74-106); SGOT/AST 15 U/L (15-37); SGPT/ALT 18 U/L (12-78); TOT PROT 5.8 g/dl (6.4-8.2)
--- NOTE | 2015-07-16 08:49 | PN ---
Progress Note (short form) - Note Progress Note: Progress Note PULM/CCM Patient Name: CRUZ LEE Date of : 1940 Patient Status: Inpatient Attending Provider: Yolis Arthur Patient seen and examined in the ICU. Intubated on AC Mode of vent. Remains minimally responsive to noxious stimuli. Has been off all sedation. No significant change in his poor mental status. Intake & Output 07/13/15 07/14/15 07/15/15 07/16/15 23:59 23:59 23:59 23:59 Intake Total 1950 1095 1020 Output Total 9417 346 9304 500 Balance 50 985 480 -500 Weight 174 lb 174 lb 8 oz 169 lb 3 oz Last Vital Signs Temp Pulse Resp BP Pulse Ox 99.7 F H 102 H 18 197/95 98 07/16/15 06:00 07/16/15 06:27 07/16/15 06:44 07/16/15 06:27 07/15/15 21:00 Active Medications Acetaminophen (Tylenol Oral Solution -) 650 mg NGT Q6H PRN PRN Reason: FEVER Last Admin: 07/16/15 06:22 Dose: 650 mg Amlodipine Besylate (Norvasc -) 10 mg PO DAILY [facility] Last Admin: 07/15/15 10:00 Dose: 10 mg Chlorhexidine Gluconate (Hibiclens For Decolonization -) 1 applic TP HS [facility] Last Admin: 07/15/15 22:07 Dose: 1 applic Pantoprazole Sodium 40 mg/ (Sodium Chloride) 100 mls @ 200 mls/hr IVPB BID [facility] Last Admin: 07/15/15 22:10 Dose: 200 mls/hr Metronidazole (Flagyl 500mg Premixed Ivpb -) 100 mls @ 100 mls/hr IVPB Q8H-IV [facility] Last Admin: 07/16/15 01:14 Dose: 100 mls/hr Insulin Aspart (Novolog Flexpen Sliding Scale -) 0 units SQ Q6HPO [facility] PRN Reason: Protocol Last Admin: 07/16/15 06:33 Dose: 8 units Lisinopril (Prinivil -) 10 mg PO DAILY [facility] Last Admin: 07/15/15 09:59 Dose: 10 mg Metoprolol Tartrate (Lopressor Injection -) 5 mg IVPUSH Q6H PRN PRN Reason: HYPERTENSION Last Admin: 07/16/15 06:27 Dose: 5 mg Metoprolol Tartrate (Lopressor -) 50 mg PO BID [facility] Last Admin: 07/15/15 22:08 Dose: 50 mg Multivitamins (Thera-Plus -) 5 ml PO DAILY [facility] Last Admin: 07/15/15 10:00 Dose: 5 ml Ondansetron HCl (Zofran Injection -) 4 mg IVPB Q6H PRN PRN Reason: NAUSEA Gen: intubated, minimally repsonsive Heart: S1S2 Lung: decreased breath sounds at the bases Abd: soft, (+) BS Ext: no edema Laboratory Results - last 24 hr 07/15/15 07/15/15 07/16/15 12:18 17:58 00:06 WBC RBC Hgb Hct MCV MCHC RDW Plt Count MPV Sodium Potassium Chloride Carbon Dioxide Anion Gap BUN Creatinine Creat Clearance w eGFR POC Glucometer 320.31033 316.81615 314.59495 Random Glucose Calcium Total Bilirubin AST ALT Alkaline Phosphatase Total Protein Albumin 07/16/15 07/16/15 05:20 06:33 WBC 12.8 H RBC 2.93 L Hgb 8.7 L Hct 26.4 L MCV 90.1 MCHC 32.8 RDW 14.8 Plt Count 384 MPV 7.8 Sodium 141 Potassium 4.1 Chloride 102 Carbon Dioxide 33 H Anion Gap 6 L BUN 17 Creatinine 0.8 D Creat Clearance w eGFR > 60 POC Glucometer 317.03067 Random Glucose 257 H Calcium 8.5 Total Bilirubin 0.2 D AST 15 D ALT 18 Alkaline Phosphatase 93 Total Protein 5.8 L Albumin 2.2 L CXR: Clear IMP: Acute Brainstem CVA S/P Right Hemicoletomy due to Acute Lower Diverticular GI Bleed Acute Blood Loss Anemia Acute Respiratory Failure Pneumonia likely aspiration HTN DM CKD PLAN: - Still no decision by the Family -> they cannot decide between compassionate extubation or Trach/PEG and LTAC placement - protonix - Antibiotics per ID - Enteral feeds as tolerated - DVT/GI prophylaxis - Anti-platelets are on hold due to severe bleeding that required surgery and the fact the his H&H is slowly trending down - Due to his grave prognosis -> I would favor compassionate extubation Dr Agosto CCTime [phone]" CCTime [phone]"
[2015-07-16] MEDS: PANTOPRAZOLE SODIUM 40 MG in SODIUM CHLORIDE 100 ML IVPB SCH ×2 (09:45→22:26)
[2015-07-16] MEDS: LISINOPRIL 10 MG TABLET (FP) PO SCH (09:46)
[2015-07-16] MEDS: METOPROLOL TARTRATE 50 MG TABLET (FP) PO SCH ×2 (09:46→22:25)
[2015-07-16] MEDS: amLODIPine BESYLATE 10 MG TABLET (FP) PO SCH (09:46)
[2015-07-16] MEDS: MULTIVITAMINS THERAPEUTIC PO SCH (09:47)
[2015-07-16] MEDS: CHLORHEXIDINE GLUCONATE 4% CLEANSER FOR DECOLONIZATION TP SCH (22:25)
[2015-07-17] MEDS: METRONIDAZOLE 500 MG PREMIXED 100 ML IVPB SCH ×3 (01:06→17:44)
[2015-07-17 06:03] LABS: MCHC 33.2 g/dl (32.0-35.9); MEAN CELL VOLUME 90.3 fl (80-96); MEAN PLT VOLUME 8.1 fl (7.5-11.1); PLATELET COUNT 358 K/MM3 (134-434); RDW 15.2 % (11.9-15.9); WHITE BLOOD COUNT 13.9 K/mm3 (4.0-10.0)
[2015-07-17 06:25] LABS: ALBUMIN 2.4 g/dl (3.5-5.0); ANION GAP 7 (8-16); CO2 34 mmol/L (21-32); CREATININE 0.8 mg/dL (0.6-1.3); GLUCOSE,RANDOM 235 mg/dL (74-106)
[2015-07-17 06:29] LABS: ALK PHOS 104 U/L (50-136); BILIRUBIN,TOTAL 0.2 mg/dL (0.2-1.0); SGOT/AST 14 U/L (15-37); SGPT/ALT 19 U/L (12-78); TOT PROT 6.3 g/dl (6.4-8.2)
[2015-07-17] MEDS: INSULIN SLIDING SCALE (NOVOLOG) 1 VIAL SQ SCH ×4 (06:43→23:32)
--- NOTE | 2015-07-17 09:06 | PN ---
Progress Note (short form) - Note Progress Note: PULMONARY/CCM Pt seen and examined in the ICU. Remains intubated, unresponsive. Clinically unchanged. No decision made from family yet. Last Vital Signs Temp Pulse Resp BP Pulse Ox 98.9 F 94 H 16 171/80 100 07/17/15 06:00 07/17/15 08:00 07/17/15 08:44 07/17/15 08:00 07/17/15 08:44 Intake & Output 07/14/15 07/15/15 07/16/15 07/17/15 23:59 23:59 23:59 23:59 Intake Total 1095 1020 1790 Output Total 400 1500 2250 500 Balance 475 -164 -623 -500 Weight 174 lb 8 oz 169 lb 3 oz 169 lb 9 oz Gen: intubated, poorly responsive Heart: RRR Lung: decreased breath sounds at the bases Abd: soft, nontender, dressing dry Ext: + edema CBC, BMP 07/17/15 05:00 07/17/15 05:00 Active Medications Acetaminophen (Tylenol Oral Solution -) 650 mg NGT Q6H PRN PRN Reason: FEVER Last Admin: 07/16/15 22:26 Dose: 650 mg Amlodipine Besylate (Norvasc -) 10 mg PO DAILY [facility] Last Admin: 07/16/15 09:46 Dose: 10 mg Chlorhexidine Gluconate (Hibiclens For Decolonization -) 1 applic TP HS [facility] Last Admin: 07/16/15 22:25 Dose: 1 applic Pantoprazole Sodium 40 mg/ (Sodium Chloride) 100 mls @ 200 mls/hr IVPB BID [facility] Last Admin: 07/16/15 22:26 Dose: 200 mls/hr Metronidazole (Flagyl 500mg Premixed Ivpb -) 100 mls @ 100 mls/hr IVPB Q8H-IV [facility] Last Admin: 07/17/15 01:06 Dose: 100 mls/hr Insulin Aspart (Novolog Flexpen Sliding Scale -) 0 units SQ Q6HPO [facility] PRN Reason: Protocol Last Admin: 07/17/15 06:43 Dose: 6 units Lisinopril (Prinivil -) 10 mg PO DAILY [facility] Last Admin: 07/16/15 09:46 Dose: 10 mg Metoprolol Tartrate (Lopressor Injection -) 5 mg IVPUSH Q6H PRN PRN Reason: HYPERTENSION Last Admin: 07/16/15 06:27 Dose: 5 mg Metoprolol Tartrate (Lopressor -) 50 mg PO BID [facility] Last Admin: 07/16/15 22:25 Dose: 50 mg Multivitamins (Thera-Plus -) 5 ml PO DAILY [facility] Last Admin: 07/16/15 09:47 Dose: 5 ml Ondansetron HCl (Zofran Injection -) 4 mg IVPB Q6H PRN PRN Reason: NAUSEA A/P Acute Respiratory Failure Acute CVA/Anoxic Brain Injury Acute Lower Diverticular GI Bleed Acute Blood Loss Anemia s/p Pneumonia HTN DM CKD - monitor CBC, coags - protonix - continue antibiotics - ensure large bore peripheral access - enteral feeds - DVT/GI prophylaxis - poor prognosis for meaningful recovery - continue discussions with family re: goals of care - recommend compassionate extubation
[2015-07-17] MEDS: METOPROLOL TARTRATE 50 MG TABLET (FP) PO SCH ×2 (09:18→21:40)
[2015-07-17] MEDS: amLODIPine BESYLATE 10 MG TABLET (FP) PO SCH (09:19)
[2015-07-17] MEDS: LISINOPRIL 10 MG TABLET (FP) PO SCH (09:19)
[2015-07-17] MEDS: PANTOPRAZOLE SODIUM 40 MG in SODIUM CHLORIDE 100 ML IVPB SCH ×2 (09:26→21:40)
[2015-07-17] MEDS: MULTIVITAMINS THERAPEUTIC PO SCH (12:03)
[2015-07-17] MEDS: ACETAMINOPHEN 650 MG/20.3 ML ORAL SOLUTION (CUPS) NGT PRN (17:45)
[2015-07-17] MEDS: VANCOMYCIN 250 MG/5 ML ORAL SOLUTION PEG SCH ×2 (21:39→23:33)
[2015-07-17] MEDS: CHLORHEXIDINE GLUCONATE 4% CLEANSER FOR DECOLONIZATION TP SCH (21:40)
[2015-07-17] MEDS: CHLORHEXIDINE GLUCONATE 0.12% 15ML CUP MM SCH (23:32)
[2015-07-18] MEDS: VANCOMYCIN 250 MG/5 ML ORAL SOLUTION PEG SCH ×4 (06:05→23:40)
[2015-07-18] MEDS: INSULIN SLIDING SCALE (NOVOLOG) 1 VIAL SQ SCH ×3 (06:05→17:58)
--- NOTE | 2015-07-18 09:01 | PN ---
Progress Note (short form) - Note Progress Note: PULMONARY/CCM Pt seen and examined in the ICU. Remains intubated, unresponsive. Clinically unchanged. Still no decision made from family yet. Last Vital Signs Temp Pulse Resp BP Pulse Ox 98.6 F 97 H 17 160/76 100 07/18/15 06:00 07/18/15 06:00 07/18/15 06:30 07/18/15 06:00 07/17/15 20:39 Intake & Output 07/15/15 07/16/15 07/17/15 07/18/15 23:59 23:59 23:59 23:59 Intake Total 1020 1790 2040 490 Output Total 1500 2250 2000 1400 Balance -480 -460 40 -910 Weight 174 lb 8 oz 169 lb 3 oz 169 lb 9 oz 168 lb Gen: intubated, poorly responsive Heart: RRR Lung: decreased breath sounds at the bases Abd: soft, nontender, dressing dry Ext: + edema CBC, BMP 07/17/15 05:00 07/17/15 05:00 Active Medications Acetaminophen (Tylenol Oral Solution -) 650 mg NGT Q6H PRN PRN Reason: FEVER Last Admin: 07/17/15 17:45 Dose: 650 mg Amlodipine Besylate (Norvasc -) 10 mg PO DAILY [facility] Last Admin: 07/17/15 09:19 Dose: 10 mg Chlorhexidine Gluconate (Hibiclens For Decolonization -) 1 applic TP HS [facility] Last Admin: 07/17/15 21:40 Dose: 1 applic Chlorhexidine Gluconate (Peridex -) 15 ml MM BID [facility] Last Admin: 07/17/15 23:32 Dose: 15 ml Pantoprazole Sodium 40 mg/ (Sodium Chloride) 100 mls @ 200 mls/hr IVPB BID [facility] Last Admin: 07/17/15 21:40 Dose: 200 mls/hr Insulin Aspart (Novolog Flexpen Sliding Scale -) 0 units SQ Q6HPO [facility] PRN Reason: Protocol Last Admin: 07/18/15 06:05 Dose: 6 units Lisinopril (Prinivil -) 10 mg PO DAILY [facility] Last Admin: 07/17/15 09:19 Dose: 10 mg Metoprolol Tartrate (Lopressor Injection -) 5 mg IVPUSH Q6H PRN PRN Reason: HYPERTENSION Last Admin: 07/16/15 06:27 Dose: 5 mg Metoprolol Tartrate (Lopressor -) 50 mg PO BID [facility] Last Admin: 07/17/15 21:40 Dose: 50 mg Multivitamins (Thera-Plus -) 5 ml PO DAILY [facility] Last Admin: 07/17/15 12:03 Dose: 5 ml Ondansetron HCl (Zofran Injection -) 4 mg IVPB Q6H PRN PRN Reason: NAUSEA Vancomycin HCl (Vancomycin Oral Solution) 125 mg PEG Q6HPO [facility] Last Admin: 07/18/15 06:05 Dose: 125 mg A/P Acute Respiratory Failure Acute CVA/Anoxic Brain Injury Acute Lower Diverticular GI Bleed Acute Blood Loss Anemia s/p Pneumonia HTN DM CKD - monitor CBC, coags - protonix - continue antibiotics - ensure large bore peripheral access - enteral feeds - DVT/GI prophylaxis - poor prognosis for meaningful recovery - continue discussions with family re: goals of care - recommend compassionate extubation
[2015-07-18] MEDS: METOPROLOL TARTRATE 50 MG TABLET (FP) PO SCH ×2 (10:51→21:52)
[2015-07-18] MEDS: LISINOPRIL 10 MG TABLET (FP) PO SCH (10:51)
[2015-07-18] MEDS: amLODIPine BESYLATE 10 MG TABLET (FP) PO SCH (10:51)
[2015-07-18] MEDS: PANTOPRAZOLE SODIUM 40 MG in SODIUM CHLORIDE 100 ML IVPB SCH ×2 (10:52→21:52)
[2015-07-18] MEDS: CHLORHEXIDINE GLUCONATE 0.12% 15ML CUP MM SCH ×2 (11:46→21:53)
[2015-07-18] MEDS: MULTIVITAMINS THERAPEUTIC PO SCH (11:46)
[2015-07-18] MEDS: CHLORHEXIDINE GLUCONATE 4% CLEANSER FOR DECOLONIZATION TP SCH (21:53)
[2015-07-19] MEDS: VANCOMYCIN 250 MG/5 ML ORAL SOLUTION PEG SCH ×4 (05:42→23:58)
[2015-07-19] MEDS: INSULIN SLIDING SCALE (NOVOLOG) 1 VIAL SQ SCH ×5 (05:43→23:57)
[2015-07-19 07:26] LABS: BASOPHIL 0.5 % (0-2.0); EOSINOPHIL 3.7 % (0-4.5); MCH 29.8 pg (25.7-33.7); MCHC 33.3 g/dl (32.0-35.9); MEAN CELL VOLUME 89.5 fl (80-96); MEAN PLT VOLUME 8.1 fl (7.5-11.1); NEUTROPHILS 80.9 % (42.8-82.8); PLATELET COUNT 333 K/MM3 (134-434); RDW 14.3 % (11.9-15.9); WHITE BLOOD COUNT 13.2 K/mm3 (4.0-10.0)
[2015-07-19 07:55] LABS: ALBUMIN 2.2 g/dl (3.5-5.0); ALK PHOS 118 U/L (50-136); ANION GAP 7 (8-16); BILIRUBIN,TOTAL 0.3 mg/dL (0.2-1.0); CALCIUM 8.6 mg/dL (8.5-10.1); CO2 33 mmol/L (21-32); CREATININE 0.9 mg/dL (0.6-1.3); GLUCOSE,RANDOM 235 mg/dL (74-106); SGOT/AST 14 U/L (15-37); SGPT/ALT 15 U/L (12-78); TOT PROT 5.9 g/dl (6.4-8.2)
--- NOTE | 2015-07-19 09:13 | PN ---
Progress Note (short form) - Note Progress Note: PULMONARY/CCM Pt seen and examined in the ICU. Remains intubated, unresponsive. Clinically unchanged. Still awaiting decision from family. Last Vital Signs Temp Pulse Resp BP Pulse Ox 99.8 F H 102 H 19 170/80 100 07/19/15 05:39 07/19/15 05:39 07/19/15 06:28 07/19/15 05:39 07/18/15 21:00 Intake & Output 07/16/15 07/17/15 07/18/15 07/19/15 23:59 23:59 23:59 23:59 Intake Total 1790 2040 1450 870 Output Total 2250 1999 1999 700 Balance -460 40 -550 170 Weight 169 lb 3 oz 169 lb 9 oz 168 lb 165 lb 2.02 oz Gen: intubated, poorly responsive Heart: RRR Lung: decreased breath sounds at the bases Abd: soft, nontender, dressing dry Ext: + edema CBC, BMP 07/19/15 05:10 07/19/15 05:10 Active Medications Acetaminophen (Tylenol Oral Solution -) 650 mg NGT Q6H PRN PRN Reason: FEVER Last Admin: 07/17/15 17:45 Dose: 650 mg Amlodipine Besylate (Norvasc -) 10 mg PO DAILY [facility] Last Admin: 07/18/15 10:51 Dose: 10 mg Chlorhexidine Gluconate (Hibiclens For Decolonization -) 1 applic TP HS [facility] Last Admin: 07/18/15 21:53 Dose: 1 applic Chlorhexidine Gluconate (Peridex -) 15 ml MM BID [facility] Last Admin: 07/18/15 21:53 Dose: 15 ml Pantoprazole Sodium 40 mg/ (Sodium Chloride) 100 mls @ 200 mls/hr IVPB BID [facility] Last Admin: 07/18/15 21:52 Dose: 200 mls/hr Insulin Aspart (Novolog Flexpen Sliding Scale -) 0 units SQ Q6HPO [facility] PRN Reason: Protocol Last Admin: 07/19/15 05:43 Dose: 6 units Lisinopril (Prinivil -) 10 mg PO DAILY [facility] Last Admin: 07/18/15 10:51 Dose: 10 mg Metoprolol Tartrate (Lopressor Injection -) 5 mg IVPUSH Q6H PRN PRN Reason: HYPERTENSION Last Admin: 07/16/15 06:27 Dose: 5 mg Metoprolol Tartrate (Lopressor -) 50 mg PO BID [facility] Last Admin: 07/18/15 21:52 Dose: 50 mg Multivitamins (Thera-Plus -) 5 ml PO DAILY [facility] Last Admin: 07/18/15 11:46 Dose: 5 ml Ondansetron HCl (Zofran Injection -) 4 mg IVPB Q6H PRN PRN Reason: NAUSEA Vancomycin HCl (Vancomycin Oral Solution) 125 mg PEG Q6HPO [facility] Last Admin: 07/19/15 05:42 Dose: 125 mg A/P Acute Respiratory Failure Acute CVA/Anoxic Brain Injury Acute Lower Diverticular GI Bleed Acute Blood Loss Anemia s/p Pneumonia HTN DM CKD + C Diff Ag - continue supportive care - continue antibiotics - ensure large bore peripheral access - enteral feeds - DVT/GI prophylaxis - poor prognosis for meaningful recovery - discussed with daughter Carole today at length, she needs more time to decide but will come in Sunday to discuss
[2015-07-19] MEDS: METOPROLOL TARTRATE 50 MG TABLET (FP) PO SCH ×2 (09:23→21:51)
[2015-07-19] MEDS: amLODIPine BESYLATE 10 MG TABLET (FP) PO SCH (09:24)
[2015-07-19] MEDS: CHLORHEXIDINE GLUCONATE 0.12% 15ML CUP MM SCH ×2 (09:24→21:52)
[2015-07-19] MEDS: LISINOPRIL 10 MG TABLET (FP) PO SCH (09:25)
[2015-07-19] MEDS: MULTIVITAMINS THERAPEUTIC PO SCH (09:26)
[2015-07-19] MEDS: PANTOPRAZOLE SODIUM 40 MG in SODIUM CHLORIDE 100 ML IVPB SCH ×2 (09:26→21:51)
[2015-07-19] MEDS: ACETAMINOPHEN 650 MG/20.3 ML ORAL SOLUTION (CUPS) NGT PRN (11:03)
[2015-07-19] MEDS: CHLORHEXIDINE GLUCONATE 4% CLEANSER FOR DECOLONIZATION TP SCH (21:52)
[2015-07-20] MEDS: MIDAZOLAM HCL 2 MG/2 ML SINGLE DOSE VIAL IVPUSH PRN (00:01)
[2015-07-20] MEDS: INSULIN SLIDING SCALE (NOVOLOG) 1 VIAL SQ SCH ×4 (05:56→23:31)
[2015-07-20] MEDS: VANCOMYCIN 250 MG/5 ML ORAL SOLUTION PEG SCH ×4 (05:57→23:31)
[2015-07-20 07:05] LABS: BASOPHIL 0.7 % (0-2.0); EOSINOPHIL 5.8 % (0-4.5); MCH 29.8 pg (25.7-33.7); MCHC 33.1 g/dl (32.0-35.9); MEAN PLT VOLUME 7.7 fl (7.5-11.1); NEUTROPHILS 76.2 % (42.8-82.8); PLATELET COUNT 308 K/MM3 (134-434); RDW 14.6 % (11.9-15.9); WHITE BLOOD COUNT 12.9 K/mm3 (4.0-10.0)
[2015-07-20 07:26] LABS: ALBUMIN 2.3 g/dl (3.5-5.0); ANION GAP 7 (8-16); CALCIUM 8.8 mg/dL (8.5-10.1); CO2 34 mmol/L (21-32); CREATININE 0.9 mg/dL (0.6-1.3); GLUCOSE,RANDOM 224 mg/dL (74-106); PHOSPHOROUS 4.3 mg/dL (2.5-4.9); SGOT/AST 15 U/L (15-37); SGPT/ALT 15 U/L (12-78)
[2015-07-20 07:30] LABS: ALK PHOS 107 U/L (50-136); BILIRUBIN,TOTAL 0.3 mg/dL (0.2-1.0); TOT PROT 6.3 g/dl (6.4-8.2)
--- NOTE | 2015-07-20 07:44 | PN ---
Progress Note (short form) - Note Progress Note: Pt seen and examined. Pt is intubated and unresponsive Current Medications Generic Name Dose Route Start Last Admin Trade Name Freq PRN Reason Stop Dose Admin Acetaminophen 650 mg 07/15/15 11:05 07/19/15 11:03 Tylenol Oral Solution - NGT 650 mg Q6H PRN Administration FEVER Amlodipine Besylate 10 mg 07/11/15 10:00 07/19/15 09:24 Norvasc - PO 10 mg DAILY [facility]U Administration Chlorhexidine Gluconate 1 applic 06/29/15 22:00 07/19/15 21:52 Hibiclens For Decolonization - TP 1 applic HS [facility]U Administration Chlorhexidine Gluconate 15 ml 07/17/15 22:00 07/19/15 21:52 Peridex - MM 15 ml BID K[facility]AKU Administration Pantoprazole Sodium 40 mg/ 100 mls @ 200 mls/hr 06/29/15 22:00 07/19/15 21:51 Sodium Chloride IVPB 200 mls/hr BID [facility]AKU Administration Insulin Aspart 0 units 07/09/15 08:57 07/20/15 05:56 Novolog Flexpen Sliding Scale - SQ 4 units Q6HPO KWAKU Administration Protocol Lisinopril 10 mg 07/05/15 10:00 07/19/15 09:25 Prinivil - PO 10 mg DAILY [facility] Administration Metoprolol Tartrate 5 mg 07/09/15 08:29 07/16/15 06:27 Lopressor Injection - IVPUSH 5 mg Q6H PRN Administration HYPERTENSION Metoprolol Tartrate 50 mg 07/15/15 22:00 07/19/15 21:51 Lopressor - PO 50 mg BID [facility] Administration Midazolam HCl 2 mg 07/19/15 23:24 07/20/15 00:01 Versed - IVPUSH 2 mg Q6H PRN Administration AGITATION Multivitamins 5 ml 07/07/15 21:45 07/19/15 09:26 Thera-Plus - PO 5 ml DAILY [facility] Administration Ondansetron HCl 4 mg 06/29/15 16:02 Zofran Injection - IVPB Q6H PRN NAUSEA Vancomycin HCl 125 mg 07/17/15 18:00 07/20/15 05:57 Vancomycin Oral Solution PEG 125 mg Q6HPO KWAKU Administration Last Vital Signs Temp Pulse Resp BP Pulse Ox 99.9 F H 92 H 18 169/70 98 07/20/15 06:00 07/20/15 06:00 07/20/15 07:15 07/20/15 06:00 07/19/15 22:54 Intake & Output 07/17/15 07/18/15 07/19/15 07/20/15 23:59 23:59 23:59 23:59 Intake Total 2039 1450 1910 500 Output Total 1999 1999 240 900 Balance 40 550 490 -400 Weight 169 lb 9 oz 168 lb 165 lb 2.02 oz 166 lb 0.129 oz General- resting comfortable, pt does not withdraw to pain HEENT- PEERL CV- S1S2 RRR no murmur/rub/gallops Lungs- coarse breath sounds B/L no wheezing/rhonchi/rales Abdomen- soft NT/ND no guarding/rebound +BS Extremities- B/L UE 1+ pitting edema Lines: ETT/NGT/Schwartz/Rectal CBCD WBC 12.9 K/mm3 (4.0-10.0) H 07/20/15 05:20 RBC 2.98 M/mm3 (4.00-5.60) L 07/20/15 05:20 Hgb 8.9 GM/dL (11.7-16.9) L 07/20/15 05:20 Hct 26.8 % (35.4-49) L 07/20/15 05:20 MCV 90.0 fl (80-96) 07/20/15 05:20 MCHC 33.1 g/dl (32.0-35.9) 07/20/15 05:20 RDW 14.6 % (11.9-15.9) 07/20/15 05:20 Plt Count 308 K/MM3 (134-434) 07/20/15 05:20 MPV 7.7 fl (7.5-11.1) 07/20/15 05:20 CMP Sodium 144 mmol/L (136-145) 07/20/15 05:20 Potassium 4.1 mmol/L (3.5-5.1) 07/20/15 05:20 Chloride 103 mmol/L (98-107) 07/20/15 05:20 Carbon Dioxide 34 mmol/L (21-32) H 07/20/15 05:20 Anion Gap 7 (8-16) L 07/20/15 05:20 BUN 20 mg/dL (7-18) H 07/20/15 05:20 Creatinine 0.9 mg/dL (0.6-1.3) 07/20/15 05:20 Creat Clearance w eGFR > 60 (>60) 07/20/15 05:20 Random Glucose 224 mg/dL (74-106) H 07/20/15 05:20 Calcium 8.8 mg/dL (8.5-10.1) 07/20/15 05:20 Total Bilirubin 0.3 mg/dL (0.2-1.0) 07/20/15 05:20 AST 15 U/L (15-37) 07/20/15 05:20 ALT 15 U/L (12-78) 07/20/15 05:20 Alkaline Phosphatase 107 U/L (50-136) 07/20/15 05:20 Total Protein 6.3 g/dl (6.4-8.2) L 07/20/15 05:20 Albumin 2.3 g/dl (3.5-5.0) L 07/20/15 05:20 CARDIAC ENZYMES Creatine Kinase 62 IU/L (38-174) 06/28/15 09:35 Troponin I 0.07 ng/ml (0.03-0.5) D 07/09/15 05:00 CXR- no acute infiltrate A/P 75 yo M with PMH HTN, DM, inguinal hernia a/w BRBPR and melena with multiple syncopal episodes. 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 Neuro- Anoxic brain injury s/p brainstem CVA- +brainstem functioning (pupils reactive, breathing over the vent). Receiving minimal doses of versed. unresponsive. 2. CV- HTN- hemodynamically stable cont metoprolol IVP prn, cont norvasc/ lisinopril 3. Respiratory- Intubated. saturating well on vent. pt will need to be tracheostomy. d/w family tomorrow 4. Abdomen- s/p R hemicolectomy. tolerating enteral feeds. Will need to d/w family for PEG 5. ID- C. diff + Tm 101. mild leukocytosis. on vanco day 4. 6. Endo- DM- uncontrolled. Start levemir 8units QHS, cont FS, ISS 7. DVT/GI PPx- on scd, protonix 8. Poor prognosis, family aware, discussion tomorrow to discuss goals of care.
--- NOTE | 2015-07-20 08:56 | PN ---
Progress Note (short form) - Note Progress Note: PULMONARY/CCM Pt seen and examined in the ICU. Remains intubated, unresponsive. Clinically unchanged. Last Vital Signs Temp Pulse Resp BP Pulse Ox 99.9 F H 92 H 18 169/70 98 07/20/15 06:00 07/20/15 06:00 07/20/15 07:15 07/20/15 06:00 07/19/15 22:54 Intake & Output 07/17/15 07/18/15 07/19/15 07/20/15 23:59 23:59 23:59 23:59 Intake Total 2039 1450 1910 500 Output Total 1999 1999 2400 900 Balance 40 550 -490 -400 Weight 169 lb 9 oz 168 lb 165 lb 2.02 oz 166 lb 0.129 oz Gen: intubated, poorly responsive Heart: RRR Lung: decreased breath sounds at the bases Abd: soft, nontender, dressing dry Ext: + edema CBC, BMP 07/20/15 05:20 07/20/15 05:20 Active Medications Acetaminophen (Tylenol Oral Solution -) 650 mg NGT Q6H PRN PRN Reason: FEVER Last Admin: 07/19/15 11:03 Dose: 650 mg Amlodipine Besylate (Norvasc -) 10 mg PO DAILY [facility] Last Admin: 07/19/15 09:24 Dose: 10 mg Chlorhexidine Gluconate (Hibiclens For Decolonization -) 1 applic TP HS [facility] Last Admin: 07/19/15 21:52 Dose: 1 applic Chlorhexidine Gluconate (Peridex -) 15 ml MM BID [facility] Last Admin: 07/19/15 21:52 Dose: 15 ml Pantoprazole Sodium 40 mg/ (Sodium Chloride) 100 mls @ 200 mls/hr IVPB BID [facility] Last Admin: 07/19/15 21:51 Dose: 200 mls/hr Insulin Aspart (Novolog Flexpen Sliding Scale -) 0 units SQ Q6HPO [facility] PRN Reason: Protocol Last Admin: 07/20/15 05:56 Dose: 4 units Lisinopril (Prinivil -) 10 mg PO DAILY [facility] Last Admin: 07/19/15 09:25 Dose: 10 mg Metoprolol Tartrate (Lopressor Injection -) 5 mg IVPUSH Q6H PRN PRN Reason: HYPERTENSION Last Admin: 07/16/15 06:27 Dose: 5 mg Metoprolol Tartrate (Lopressor -) 50 mg PO BID [facility] Last Admin: 07/19/15 21:51 Dose: 50 mg Midazolam HCl (Versed -) 2 mg IVPUSH Q6H PRN PRN Reason: AGITATION Last Admin: 07/20/15 00:01 Dose: 2 mg Multivitamins (Thera-Plus -) 5 ml PO DAILY [facility] Last Admin: 07/19/15 09:26 Dose: 5 ml Ondansetron HCl (Zofran Injection -) 4 mg IVPB Q6H PRN PRN Reason: NAUSEA Vancomycin HCl (Vancomycin Oral Solution) 125 mg PEG Q6HPO [facility] Last Admin: 07/20/15 05:57 Dose: 125 mg A/P Acute Respiratory Failure Acute CVA/Anoxic Brain Injury Acute Lower Diverticular GI Bleed Acute Blood Loss Anemia s/p Pneumonia HTN DM CKD + C Diff Ag - continue supportive care - continue antibiotics - ensure large bore peripheral access - enteral feeds - DVT/GI prophylaxis - poor prognosis for meaningful recovery - for family meeting tomorrow AM for further direction - will likely need tracheostomy
[2015-07-20] MEDS: METOPROLOL TARTRATE 50 MG TABLET (FP) PO SCH ×2 (09:29→21:20)
[2015-07-20] MEDS: amLODIPine BESYLATE 10 MG TABLET (FP) PO SCH (09:30)
[2015-07-20] MEDS: LISINOPRIL 10 MG TABLET (FP) PO SCH (09:30)
[2015-07-20] MEDS: CHLORHEXIDINE GLUCONATE 0.12% 15ML CUP MM SCH ×2 (09:30→21:22)
[2015-07-20] MEDS: MULTIVITAMINS THERAPEUTIC PO SCH (09:31)
[2015-07-20] MEDS: PANTOPRAZOLE SODIUM 40 MG in SODIUM CHLORIDE 100 ML IVPB SCH ×2 (09:32→21:20)
[2015-07-20] MEDS: METOPROLOL TARTRATE 5 MG/5 ML VIAL IVPUSH PRN (18:12)
[2015-07-20] MEDS: ACETAMINOPHEN 650 MG/20.3 ML ORAL SOLUTION (CUPS) NGT PRN (21:20)
[2015-07-20] MEDS: CHLORHEXIDINE GLUCONATE 4% CLEANSER FOR DECOLONIZATION TP SCH (21:22)
[2015-07-21] MEDS: VANCOMYCIN 250 MG/5 ML ORAL SOLUTION PEG SCH ×4 (06:34→23:06)
[2015-07-21] MEDS: INSULIN SLIDING SCALE (NOVOLOG) 1 VIAL SQ SCH ×4 (06:35→23:04)
[2015-07-21 07:05] LABS: BASOPHIL 0.6 % (0-2.0); MCH 29.8 pg (25.7-33.7); MCHC 33.5 g/dl (32.0-35.9); MEAN CELL VOLUME 88.8 fl (80-96); MEAN PLT VOLUME 7.7 fl (7.5-11.1); NEUTROPHILS 72.2 % (42.8-82.8); PLATELET COUNT 292 K/MM3 (134-434); RDW 14.4 % (11.9-15.9); WHITE BLOOD COUNT 11.8 K/mm3 (4.0-10.0)
[2015-07-21 07:18] LABS: CALCIUM 9.1 mg/dL (8.5-10.1); PHOSPHOROUS 4.1 mg/dL (2.5-4.9)
--- NOTE | 2015-07-21 07:28 | PN ---
Progress Note (short form) - Note Progress Note: Pt seen and examined. Pt is intubated and unresponsive Current Medications Generic Name Dose Route Start Last Admin Trade Name Freq PRN Reason Stop Dose Admin Acetaminophen 650 mg 07/15/15 11:05 07/20/15 21:20 Tylenol Oral Solution - NGT 650 mg Q6H PRN Administration FEVER Amlodipine Besylate 10 mg 07/11/15 10:00 07/20/15 09:30 Norvasc - PO 10 mg DAILY [facility] Administration Chlorhexidine Gluconate 1 applic 06/29/15 22:00 07/20/15 21:22 Hibiclens For Decolonization - TP 1 applic HS [facility]AKU Administration Chlorhexidine Gluconate 15 ml 07/17/15 22:00 07/20/15 21:22 Peridex - MM 15 ml BID [facility] Administration Pantoprazole Sodium 40 mg/ 100 mls @ 200 mls/hr 06/29/15 22:00 07/20/15 21:20 Sodium Chloride IVPB 200 mls/hr BID [facility] Administration Insulin Aspart 0 units 07/09/15 08:57 07/21/15 06:35 Novolog Flexpen Sliding Scale - SQ 4 unit Q6HPO [facility] Administration Protocol Insulin Detemir 8 units 07/20/15 22:00 07/20/15 21:41 Levemir Flexpen - SQ 8 units HS [facility] Administration Lisinopril 10 mg 07/05/15 10:00 07/20/15 09:30 Prinivil - PO 10 mg DAILY [facility] Administration Metoprolol Tartrate 5 mg 07/09/15 08:29 07/20/15 18:12 Lopressor Injection - IVPUSH 5 mg Q6H PRN Administration HYPERTENSION Metoprolol Tartrate 50 mg 07/15/15 22:00 07/20/15 21:20 Lopressor - PO 50 mg BID [facility]AKU Administration Midazolam HCl 2 mg 07/19/15 23:24 07/20/15 00:01 Versed - IVPUSH 2 mg Q6H PRN Administration AGITATION Multivitamins 5 ml 07/07/15 21:45 07/20/15 09:31 Thera-Plus - PO 5 ml DAILY [facility] Administration Ondansetron HCl 4 mg 06/29/15 16:02 Zofran Injection - IVPB Q6H PRN NAUSEA Vancomycin HCl 125 mg 07/17/15 18:00 07/21/15 06:34 Vancomycin Oral Solution PEG 125 mg Q6HPO [facility]AKU Administration Last Vital Signs Temp Pulse Resp BP Pulse Ox 97.6 F 90 15 144/81 100 07/21/15 06:00 07/21/15 06:00 07/21/15 06:25 07/21/15 06:00 07/20/15 22:00 Intake & Output 07/18/15 07/19/15 07/20/15 07/21/15 23:59 23:59 23:59 23:59 Intake Total 1450 1910 1270 800 Output Total 1999 2400 1900 1100 Balance -550 -490 -630 -300 Weight 168 lb 165 lb 2.02 oz 166 lb 0.129 oz 161 lb 4.8 oz General- resting comfortable, pt does not withdraw to pain HEENT- PEERL CV- S1S2 RRR no murmur/rub/gallops Lungs- coarse breath sounds B/L no wheezing/rhonchi/rales Abdomen- soft NT/ND no guarding/rebound +BS Extremities- B/L UE 1+ pitting edema Lines: ETT/NGT/Schwartz/Rectal CBCD WBC 11.8 K/mm3 (4.0-10.0) H 07/21/15 05:20 RBC 3.05 M/mm3 (4.00-5.60) L 07/21/15 05:20 Hgb 9.1 GM/dL (11.7-16.9) L 07/21/15 05:20 Hct 27.1 % (35.4-49) L 07/21/15 05:20 MCV 88.8 fl (80-96) 07/21/15 05:20 MCHC 33.5 g/dl (32.0-35.9) 07/21/15 05:20 RDW 14.4 % (11.9-15.9) 07/21/15 05:20 Plt Count 292 K/MM3 (134-434) 07/21/15 05:20 MPV 7.7 fl (7.5-11.1) 07/21/15 05:20 CMP Sodium 145 mmol/L (136-145) 07/21/15 05:20 Potassium 3.7 mmol/L (3.5-5.1) 07/21/15 05:20 Chloride 104 mmol/L (98-107) 07/21/15 05:20 Carbon Dioxide 33 mmol/L (21-32) H 07/21/15 05:20 Anion Gap 8 (8-16) 07/21/15 05:20 BUN 21 mg/dL (7-18) H 07/21/15 05:20 Creatinine 1.0 mg/dL (0.6-1.3) 07/21/15 05:20 Creat Clearance w eGFR > 60 (>60) 07/20/15 05:20 Calcium 9.1 mg/dL (8.5-10.1) 07/21/15 05:20 Total Bilirubin 0.3 mg/dL (0.2-1.0) 07/20/15 05:20 AST 15 U/L (15-37) 07/20/15 05:20 ALT 15 U/L (12-78) 07/20/15 05:20 Alkaline Phosphatase 107 U/L (50-136) 07/20/15 05:20 Total Protein 6.3 g/dl (6.4-8.2) L 07/20/15 05:20 Albumin 2.3 g/dl (3.5-5.0) L 07/20/15 05:20 A/P 75 yo M with PMH HTN, DM, inguinal hernia a/w BRBPR and melena with multiple syncopal episodes. 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 Neuro- Anoxic brain injury s/p brainstem CVA- +brainstem functioning (pupils reactive, breathing over the vent). Receiving minimal doses of versed. unresponsive. 2. CV- HTN- hemodynamically stable cont metoprolol IVP prn, cont norvasc/ lisinopril 3. Respiratory- Intubated. saturating well on vent. pt will need to be tracheostomy. 4. Abdomen- s/p R hemicolectomy. tolerating enteral feeds. 5. ID- C. diff -Afebrile x24H. mild leukocytosis. on vanco day 4. 6. Endo- DM- uncontrolled. Will increase levemir to 12units QHS, cont FS, ISS 7. DVT/GI PPx- on scd, protonix 8. Poor prognosis, family aware, discussion today regarding passionate extubation and withdrawal of care vs continued support, which would entail Trach and PEG Trach and PEG
--- NOTE | 2015-07-21 08:38 | PN ---
Progress Note (short form) - Note Progress Note: PULMONARY/CCM Pt seen and examined in the ICU. Remains intubated, unresponsive. Clinically unchanged. Last Vital Signs Temp Pulse Resp BP Pulse Ox 97.6 F 90 15 144/81 100 07/21/15 06:00 07/21/15 06:00 07/21/15 06:25 07/21/15 06:00 07/20/15 22:00 Intake & Output 07/18/15 07/19/15 07/20/15 07/21/15 23:59 23:59 23:59 23:59 Intake Total 1450 1910 1270 800 Output Total 1999 2400 1900 1100 Balance -550 -490 -630 -300 Weight 168 lb 165 lb 2.02 oz 166 lb 0.129 oz 161 lb 4.8 oz Gen: intubated, poorly responsive Heart: RRR Lung: decreased breath sounds at the bases Abd: soft, nontender, dressing dry Ext: + edema CBC, BMP 07/21/15 05:20 07/21/15 05:20 Active Medications Acetaminophen (Tylenol Oral Solution -) 650 mg NGT Q6H PRN PRN Reason: FEVER Last Admin: 07/20/15 21:20 Dose: 650 mg Amlodipine Besylate (Norvasc -) 10 mg PO DAILY [facility] Last Admin: 07/20/15 09:30 Dose: 10 mg Chlorhexidine Gluconate (Hibiclens For Decolonization -) 1 applic TP HS [facility] Last Admin: 07/20/15 21:22 Dose: 1 applic Chlorhexidine Gluconate (Peridex -) 15 ml MM BID [facility] Last Admin: 07/20/15 21:22 Dose: 15 ml Pantoprazole Sodium 40 mg/ (Sodium Chloride) 100 mls @ 200 mls/hr IVPB BID [facility] Last Admin: 07/20/15 21:20 Dose: 200 mls/hr Insulin Aspart (Novolog Flexpen Sliding Scale -) 0 units SQ Q6HPO [facility] PRN Reason: Protocol Last Admin: 07/21/15 06:35 Dose: 4 unit Insulin Detemir (Levemir Flexpen -) 8 units SQ HS [facility] Last Admin: 07/20/15 21:41 Dose: 8 units Lisinopril (Prinivil -) 10 mg PO DAILY [facility] Last Admin: 07/20/15 09:30 Dose: 10 mg Metoprolol Tartrate (Lopressor Injection -) 5 mg IVPUSH Q6H PRN PRN Reason: HYPERTENSION Last Admin: 07/20/15 18:12 Dose: 5 mg Metoprolol Tartrate (Lopressor -) 50 mg PO BID [facility] Last Admin: 07/20/15 21:20 Dose: 50 mg Midazolam HCl (Versed -) 2 mg IVPUSH Q6H PRN PRN Reason: AGITATION Last Admin: 07/20/15 00:01 Dose: 2 mg Multivitamins (Thera-Plus -) 5 ml PO DAILY [facility] Last Admin: 07/20/15 09:31 Dose: 5 ml Ondansetron HCl (Zofran Injection -) 4 mg IVPB Q6H PRN PRN Reason: NAUSEA Vancomycin HCl (Vancomycin Oral Solution) 125 mg PEG Q6HPO [facility] Last Admin: 07/21/15 06:34 Dose: 125 mg A/P Acute Respiratory Failure Acute CVA/Anoxic Brain Injury Acute Lower Diverticular GI Bleed Acute Blood Loss Anemia s/p Pneumonia HTN DM CKD + C Diff Ag - continue supportive care - continue antibiotics - enteral feeds - DVT/GI prophylaxis - poor prognosis for meaningful recovery - for family meeting today to discuss further direction - will need tracheostomy
[2015-07-21] MEDS: PANTOPRAZOLE SODIUM 40 MG in SODIUM CHLORIDE 100 ML IVPB SCH ×2 (09:18→21:29)
[2015-07-21] MEDS: METOPROLOL TARTRATE 50 MG TABLET (FP) PO SCH ×2 (09:18→21:28)
[2015-07-21] MEDS: amLODIPine BESYLATE 10 MG TABLET (FP) PO SCH (09:18)
[2015-07-21] MEDS: CHLORHEXIDINE GLUCONATE 0.12% 15ML CUP MM SCH ×2 (09:18→21:29)
[2015-07-21] MEDS: LISINOPRIL 10 MG TABLET (FP) PO SCH (09:18)
[2015-07-21] MEDS: MULTIVITAMINS THERAPEUTIC PO SCH (09:18)
--- NOTE | 2015-07-21 13:54 | PN ---
Progress Note (short form) - Note Progress Note: PULMONARY/CCM Discussed with pt's daughter pt's condition and prognosis. She would like to continue to wait to assess her father's neurologic recovery. She agrees to a tracheostomy and PEG. She also made his father DNR in the event of a cardiac arrest. Agus Jordan MD
[2015-07-21] MEDS: ACETAMINOPHEN 650 MG/20.3 ML ORAL SOLUTION (CUPS) NGT PRN (20:37)
[2015-07-21] MEDS: METOPROLOL TARTRATE 5 MG/5 ML VIAL IVPUSH PRN (20:38)
[2015-07-21] MEDS: CHLORHEXIDINE GLUCONATE 4% CLEANSER FOR DECOLONIZATION TP SCH (21:28)
[2015-07-22] MEDS: INSULIN SLIDING SCALE (NOVOLOG) 1 VIAL SQ SCH ×3 (05:46→18:28)
[2015-07-22] MEDS: VANCOMYCIN 250 MG/5 ML ORAL SOLUTION PEG SCH ×4 (05:46→23:50)
[2015-07-22 06:56] LABS: BASOPHIL 0.7 % (0-2.0); EOSINOPHIL 5.5 % (0-4.5); MCH 29.9 pg (25.7-33.7); MCHC 33.6 g/dl (32.0-35.9); MEAN CELL VOLUME 88.8 fl (80-96); MEAN PLT VOLUME 8.2 fl (7.5-11.1); NEUTROPHILS 72.6 % (42.8-82.8); PLATELET COUNT 273 K/MM3 (134-434); RDW 14.5 % (11.9-15.9); WHITE BLOOD COUNT 11.2 K/mm3 (4.0-10.0)
[2015-07-22 07:08] LABS: INR 1.26 (0.86-1.14); PROTHROMBIN TIME (PATIENT) 13.3 SEC (9.5-11.7)
[2015-07-22 07:18] LABS: CALCIUM 9.3 mg/dL (8.5-10.1); CREATININE 0.7 mg/dL (0.6-1.3); PHOSPHOROUS 4.3 mg/dL (2.5-4.9)
--- NOTE | 2015-07-22 08:48 | PN ---
Progress Note (short form) - Note Progress Note: Progress Note PULM/CCM Patient Name: CRUZ LEE Date of : 1940 Patient Status: Inpatient Attending Provider: Yolis Arthur Patient seen and examined in the ICU. Intubated on AC Mode of vent. No change in mental status. Has been off all sedation. Intake & Output 07/19/15 07/20/15 07/21/15 07/22/15 23:59 23:59 23:59 23:59 Intake Total 1910 1270 1350 Output Total 2400 1900 2050 800 Balance -490 -630 -700 -800 Weight 165 lb 2.02 oz 166 lb 0.129 oz 161 lb 4.8 oz 157 lb 9 oz Last Vital Signs Temp Pulse Resp BP Pulse Ox 99.0 F 97 H 16 155/77 100 07/22/15 06:00 07/22/15 08:05 07/22/15 08:06 07/22/15 06:00 07/22/15 08:06 Active Medications Acetaminophen (Tylenol Oral Solution -) 650 mg NGT Q6H PRN PRN Reason: FEVER Last Admin: 07/21/15 20:37 Dose: 650 mg Amlodipine Besylate (Norvasc -) 10 mg PO DAILY [facility] Last Admin: 07/21/15 09:18 Dose: 10 mg Chlorhexidine Gluconate (Hibiclens For Decolonization -) 1 applic TP HS [facility] Last Admin: 07/21/15 21:28 Dose: 1 applic Chlorhexidine Gluconate (Peridex -) 15 ml MM BID [facility] Last Admin: 07/21/15 21:29 Dose: 15 ml Pantoprazole Sodium 40 mg/ (Sodium Chloride) 100 mls @ 200 mls/hr IVPB BID [facility] Last Admin: 07/21/15 21:29 Dose: 200 mls/hr Insulin Aspart (Novolog Flexpen Sliding Scale -) 0 units SQ Q6HPO [facility] PRN Reason: Protocol Last Admin: 07/22/15 05:46 Dose: 2 units Insulin Detemir (Levemir Flexpen -) 12 units SQ HS [facility] Last Admin: 07/21/15 21:28 Dose: 12 units Lisinopril (Prinivil -) 10 mg PO DAILY [facility] Last Admin: 07/21/15 09:18 Dose: 10 mg Metoprolol Tartrate (Lopressor Injection -) 5 mg IVPUSH Q6H PRN PRN Reason: HYPERTENSION Last Admin: 07/21/15 20:38 Dose: 5 mg Metoprolol Tartrate (Lopressor -) 50 mg PO BID [facility] Last Admin: 07/21/15 21:28 Dose: 50 mg Midazolam HCl (Versed -) 2 mg IVPUSH Q6H PRN PRN Reason: AGITATION Last Admin: 07/20/15 00:01 Dose: 2 mg Multivitamins (Thera-Plus -) 5 ml PO DAILY [facility] Last Admin: 07/21/15 09:18 Dose: 5 ml Ondansetron HCl (Zofran Injection -) 4 mg IVPB Q6H PRN PRN Reason: NAUSEA Vancomycin HCl (Vancomycin Oral Solution) 125 mg PEG Q6HPO [facility] Last Admin: 07/22/15 05:46 Dose: 125 mg Gen: intubated, minimally repsonsive Heart: S1S2 Lung: decreased breath sounds at the bases Abd: soft, (+) BS Ext: (+) edema Laboratory Results - last 24 hr 07/20/15 07/21/15 07/21/15 21:28 06:23 12:04 WBC RBC Hgb Hct MCV MCHC RDW Plt Count MPV Neutrophils % Lymphocytes % Monocytes % Eosinophils % Basophils % INR PTT (Actin FS) Sodium Potassium Chloride Carbon Dioxide Anion Gap BUN Creatinine POC Glucometer [phone] [phone] Random Glucose Calcium Phosphorus Magnesium 07/21/15 07/21/15 07/22/15 17:44 23:02 05:20 WBC 11.2 H RBC 3.19 L Hgb 9.5 L Hct 28.3 L MCV 88.8 MCHC 33.6 RDW 14.5 Plt Count 273 MPV 8.2 Neutrophils % 72.6 Lymphocytes % 15.4 Monocytes % 5.8 Eosinophils % 5.5 H Basophils % 0.7 INR 1.26 H PTT (Actin FS) 28.0 Sodium 146 H Potassium 4.0 Chloride 106 Carbon Dioxide 34 H Anion Gap 6 L BUN 21 H Creatinine 0.7 D POC Glucometer [phone] Random Glucose 176 H Calcium 9.3 Phosphorus 4.3 Magnesium 2.0 07/22/15 05:43 WBC RBC Hgb Hct MCV MCHC RDW Plt Count MPV Neutrophils % Lymphocytes % Monocytes % Eosinophils % Basophils % INR PTT (Actin FS) Sodium Potassium Chloride Carbon Dioxide Anion Gap BUN Creatinine POC Glucometer [phone] Random Glucose Calcium Phosphorus Magnesium CXR: Clear IMP: Acute Brainstem CVA S/P Right Hemicoletomy due to Acute Lower Diverticular GI Bleed Acute Blood Loss Anemia Acute Respiratory Failure Pneumonia likely aspiration HTN DM CKD C diff Ag (+) PLAN: - Family has decided on Trach & PEG - PPI - Antibiotics per ID - Enteral feeds as tolerated - DVT/GI prophylaxis Dr Agosto CCTime 35"
[2015-07-22] MEDS: METOPROLOL TARTRATE 50 MG TABLET (FP) PO SCH ×2 (09:35→22:01)
[2015-07-22] MEDS: amLODIPine BESYLATE 10 MG TABLET (FP) PO SCH (09:36)
[2015-07-22] MEDS: LISINOPRIL 10 MG TABLET (FP) PO SCH (09:36)
[2015-07-22] MEDS: MULTIVITAMINS THERAPEUTIC PO SCH (09:37)
[2015-07-22] MEDS: PANTOPRAZOLE SODIUM 40 MG in SODIUM CHLORIDE 100 ML IVPB SCH ×2 (09:37→22:01)
[2015-07-22] MEDS: CHLORHEXIDINE GLUCONATE 0.12% 15ML CUP MM SCH ×2 (09:37→22:01)
--- NOTE | 2015-07-22 10:06 | CONSULT ---
Consult Consult Specialty:: Cardiothoracic Surgery - History of Present Illness History of Present Illness: 75 yo M who presented with c/o rectal bleeding on 06/26, pt underwent a R hemicoloectomy on 06/29/15. POst operatively pt was unresponsive and found to have a stroke on CT of head on 07/01/15. pt remains intubated and unresponsive in the ICU. I have been consulted for trachestomy placement. - History Source History Provided By: Medical Record Limitations to Obtaining History: Intubated - Past Medical History Cardio/Vascular: Yes: HTN Endocrine: Yes: Diabetes Mellitus - Past Surgical History Past Surgical History: Yes: Hernia Repair - Alcohol/Substance Use Hx Alcohol Use: No - Smoking History Smoking history: Never smoked Have you smoked in the past 12 months: No Aproximately how many cigarettes per day: 0 Home Medications - Allergies Allergies/Adverse Reactions: Allergies Allergy/AdvReac Type Severity Reaction Status Date / Time No Known Allergies Allergy Verified 06/26/15 21:31 - Home Medications Home Medications: Ambulatory Orders Amlodipine Besylate [Norvasc -] 5 mg PO DAILY #30 tablet 06/01/15 Lisinopril [Prinivil -] 10 mg PO DAILY #30 tablet 06/01/15 Metoprolol Tartrate [Lopressor -] 25 mg PO DAILY #30 tablet 06/01/15 Pantoprazole Sodium [Protonix -] 40 mg PO DAILY #30 tablet.ec 06/01/15 Repaglinide [Prandin -] 0.5 mg PO TIDCM #90 tablet 06/01/15 Family Disease History - Family Disease History Other Family History: non-contributory Review of Systems Unable to obtain ROS, reason: pt intubated Physical Exam Vital Signs: Vital Signs Temperature 99.0 F 07/22/15 06:00 Pulse Rate 97 H 07/22/15 08:05 Respiratory Rate 16 07/22/15 08:06 Blood Pressure 155/77 07/22/15 08:00 O2 Sat by Pulse Oximetry (%) 100 07/22/15 08:06 Neck: Yes: WNL, Trachea Midline Cardiovascular: Yes: WNL Respiratory: Yes: Regular, Intubated, Mechanically Ventilated Labs: CBC, BMP 07/22/15 05:20 07/22/15 05:20 Imaging - Results Chest X-ray: Report Reviewed, Image Reviewed Assessment/Plan Failure to wean from ventilator Plan for trachestomy tomorrow. Pre-op/consent/ NPO I spent 45min 50% of which was in results review, planning and consultation with patient and medical team.
--- NOTE | 2015-07-22 12:50 | PN ---
Progress Note (short form) - Note Progress Note: Pt seen and examined. Pt is intubated and unresponsive Current Medications Generic Name Dose Route Start Last Admin Trade Name Freq PRN Reason Stop Dose Admin Acetaminophen 650 mg 07/15/15 11:05 07/21/15 20:37 Tylenol Oral Solution - NGT 650 mg Q6H PRN Administration FEVER Amlodipine Besylate 10 mg 07/11/15 10:00 07/22/15 09:36 Norvasc - PO 10 mg DAILY KWAKU Administration Chlorhexidine Gluconate 1 applic 06/29/15 22:00 07/21/15 21:28 Hibiclens For Decolonization - TP 1 applic HS KWAKU Administration Chlorhexidine Gluconate 15 ml 07/17/15 22:00 07/22/15 09:37 Peridex - MM 15 ml BID KWAKU Administration Pantoprazole Sodium 40 mg/ 100 mls @ 200 mls/hr 06/29/15 22:00 07/22/15 09:37 Sodium Chloride IVPB 200 mls/hr BID KWAKU Administration Insulin Aspart 0 units 07/09/15 08:57 07/22/15 11:10 Novolog Flexpen Sliding Scale - SQ 6 units Q6HPO KWAKU Administration Protocol Insulin Detemir 12 units 07/21/15 13:36 07/21/15 21:28 Levemir Flexpen - SQ 12 units HS KWAKU Administration Lisinopril 10 mg 07/05/15 10:00 07/22/15 09:36 Prinivil - PO 10 mg DAILY KWAKU Administration Metoprolol Tartrate 5 mg 07/09/15 08:29 07/21/15 20:38 Lopressor Injection - IVPUSH 5 mg Q6H PRN Administration HYPERTENSION Metoprolol Tartrate 50 mg 07/15/15 22:00 07/22/15 09:35 Lopressor - PO 50 mg BID KWAKU Administration Midazolam HCl 2 mg 07/19/15 23:24 07/20/15 00:01 Versed - IVPUSH 2 mg Q6H PRN Administration AGITATION Multivitamins 5 ml 07/07/15 21:45 07/22/15 09:37 Thera-Plus - PO 5 ml DAILY KWAKU Administration Ondansetron HCl 4 mg 06/29/15 16:02 Zofran Injection - IVPB Q6H PRN NAUSEA Vancomycin HCl 125 mg 07/17/15 18:00 07/22/15 11:10 Vancomycin Oral Solution PEG 125 mg Q6HPO KWAKU Administration Last Vital Signs Temp Pulse Resp BP Pulse Ox 98.2 F 103 H 17 166/80 100 07/22/15 10:00 07/22/15 10:00 07/22/15 10:00 07/22/15 10:00 07/22/15 10:00 Intake & Output 07/19/15 07/20/15 07/21/15 07/22/15 23:59 23:59 23:59 23:59 Intake Total 1910 1270 1350 Output Total 2400 1900 2050 800 Balance -490 -630 -700 -800 Weight 165 lb 2.02 oz 166 lb 0.129 oz 161 lb 4.8 oz 157 lb 9 oz General- resting comfortable, pt does not withdraw to pain HEENT- PEERL CV- S1S2 RRR no murmur/rub/gallops Lungs- coarse breath sounds B/L no wheezing/rhonchi/rales Abdomen- soft NT/ND no guarding/rebound +BS Extremities- B/L UE 1+ pitting edema Lines: ETT/NGT/Schwartz/Rectal CBCD WBC 11.2 K/mm3 (4.0-10.0) H 07/22/15 05:20 RBC 3.19 M/mm3 (4.00-5.60) L 07/22/15 05:20 Hgb 9.5 GM/dL (11.7-16.9) L 07/22/15 05:20 Hct 28.3 % (35.4-49) L 07/22/15 05:20 MCV 88.8 fl (80-96) 07/22/15 05:20 MCHC 33.6 g/dl (32.0-35.9) 07/22/15 05:20 RDW 14.5 % (11.9-15.9) 07/22/15 05:20 Plt Count 273 K/MM3 (134-434) 07/22/15 05:20 MPV 8.2 fl (7.5-11.1) 07/22/15 05:20 CMP Sodium 146 mmol/L (136-145) H 07/22/15 05:20 Potassium 4.0 mmol/L (3.5-5.1) 07/22/15 05:20 Chloride 106 mmol/L (98-107) 07/22/15 05:20 Carbon Dioxide 34 mmol/L (21-32) H 07/22/15 05:20 Anion Gap 6 (8-16) L 07/22/15 05:20 BUN 21 mg/dL (7-18) H 07/22/15 05:20 Creatinine 0.7 mg/dL (0.6-1.3) D 07/22/15 05:20 Creat Clearance w eGFR > 60 (>60) 07/20/15 05:20 Calcium 9.3 mg/dL (8.5-10.1) 07/22/15 05:20 Total Bilirubin 0.3 mg/dL (0.2-1.0) 07/20/15 05:20 AST 15 U/L (15-37) 07/20/15 05:20 ALT 15 U/L (12-78) 07/20/15 05:20 Alkaline Phosphatase 107 U/L (50-136) 07/20/15 05:20 Total Protein 6.3 g/dl (6.4-8.2) L 07/20/15 05:20 Albumin 2.3 g/dl (3.5-5.0) L 07/20/15 05:20 A/P 75 yo M with PMH HTN, DM, inguinal hernia a/w BRBPR and melena with multiple syncopal episodes. 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 Neuro- Anoxic brain injury s/p brainstem CVA- +brainstem functioning (pupils reactive, breathing over the vent). Has not received any doses of versed in 48H unresponsive. 2. CV- HTN- hypertensive will increase lisinopril to 20mg and metoprolol to 75mg. cont to monitor 3. Respiratory- Intubated. saturating well on vent.family decided on trach. evaluation today. npo tonight for trach 4. Abdomen- s/p R hemicolectomy. tolerating enteral feeds. pt to get PEG 5. ID- C. diff -Afebrile. mild leukocytosis. on vanco po day 6 6. Endo- DM- uncontrolled. cont current mangaement for now to monitor response. will decrease levemir to 6units QHS as pt is npo luis miguel, cont FS, ISS 7. DVT/GI PPx- on scd, protonix 8. Poor prognosis, family discussion yesterday. pt now DNR.
[2015-07-22] MEDS: MIDAZOLAM HCL 2 MG/2 ML SINGLE DOSE VIAL IVPUSH PRN (21:55)
[2015-07-22] MEDS: CHLORHEXIDINE GLUCONATE 4% CLEANSER FOR DECOLONIZATION TP SCH (22:02)
[2015-07-22] MEDS: PROPOFOL 100 ML IVPB SCH (22:30)
[2015-07-23] MEDS: INSULIN SLIDING SCALE (NOVOLOG) 1 VIAL SQ SCH ×4 (00:15→17:08)
[2015-07-23] MEDS: VANCOMYCIN 250 MG/5 ML ORAL SOLUTION PEG SCH ×3 (05:39→17:09)
[2015-07-23 06:39] LABS: MCH 29.2 pg (25.7-33.7); MCHC 32.6 g/dl (32.0-35.9); MEAN CELL VOLUME 89.4 fl (80-96); PLATELET COUNT 241 K/MM3 (134-434); RDW 14.2 % (11.9-15.9)
[2015-07-23 06:49] LABS: INR 1.31 (0.86-1.14); PROTHROMBIN TIME (PATIENT) 14.1 SEC (9.5-11.7)
[2015-07-23 06:52] LABS: ACTIVATED PTT 28.6 SECONDS (23.5-38.3)
[2015-07-23 07:23] LABS: ALBUMIN 2.5 g/dl (3.4-5.0); ALK PHOS 102 U/L (45-117); ANION GAP 6 (8-16); BILIRUBIN,TOTAL 0.3 mg/dL (0.2-1.0); CALCIUM 9.4 mg/dL (8.5-10.1); CO2 32 mmol/L (21-32); CREATININE 0.8 mg/dL (0.6-1.3); GLUCOSE,RANDOM 172 mg/dL (74-106); SGOT/AST 17 U/L (15-37); SGPT/ALT 19 U/L (12-78); TOT PROT 6.7 g/dl (6.4-8.2)
--- NOTE | 2015-07-23 08:06 | PN ---
Progress Note (short form) - Note Progress Note: Pt seen and examined. Pt is intubated and unresponsive Current Medications Generic Name Dose Route Start Last Admin Trade Name Freq PRN Reason Stop Dose Admin Acetaminophen 650 mg 07/15/15 11:05 07/21/15 20:37 Tylenol Oral Solution - NGT 650 mg Q6H PRN Administration FEVER Amlodipine Besylate 10 mg 07/11/15 10:00 07/22/15 09:36 Norvasc - PO 10 mg DAILY KWAKU Administration Chlorhexidine Gluconate 1 applic 06/29/15 22:00 07/22/15 22:02 Hibiclens For Decolonization - TP 1 applic HS KWAKU Administration Chlorhexidine Gluconate 15 ml 07/17/15 22:00 07/22/15 22:01 Peridex - MM 15 ml BID KWAKU Administration Pantoprazole Sodium 40 mg/ 100 mls @ 200 mls/hr 06/29/15 22:00 07/22/15 22:01 Sodium Chloride IVPB 200 mls/hr BID KWAKU Administration Propofol 100 mls @ 2.144 mls/hr 07/22/15 22:30 07/22/15 22:30 Diprivan - IVPB 2.144 mls/hr TITR KWAKU Administration Protocol 5 MCG/KG/MIN Insulin Aspart 0 units 07/09/15 08:57 07/23/15 06:13 Novolog Flexpen Sliding Scale - SQ 2 units Q6HPO KWAKU Administration Protocol Insulin Detemir 6 units 07/22/15 22:00 07/22/15 22:01 Levemir Flexpen - SQ 6 units HS KWAKU Administration Lisinopril 20 mg 07/23/15 10:00 Prinivil - PO DAILY KWAKU Metoprolol Tartrate 5 mg 07/09/15 08:29 07/21/15 20:38 Lopressor Injection - IVPUSH 5 mg Q6H PRN Administration HYPERTENSION Metoprolol Tartrate 75 mg 07/22/15 22:00 07/22/15 22:01 Lopressor - PO 75 mg BID KWAKU Administration Midazolam HCl 2 mg 07/19/15 23:24 07/22/15 21:55 Versed - IVPUSH 2 mg Q6H PRN Administration AGITATION Multivitamins 5 ml 07/07/15 21:45 07/22/15 09:37 Thera-Plus - PO 5 ml DAILY KWAKU Administration Ondansetron HCl 4 mg 06/29/15 16:02 Zofran Injection - IVPB Q6H PRN NAUSEA Vancomycin HCl 125 mg 07/17/15 18:00 07/23/15 05:39 Vancomycin Oral Solution PEG Not Given Q6HPO KWAKU Last Vital Signs Temp Pulse Resp BP Pulse Ox 98.2 F 85 14 150/75 98 07/23/15 06:00 07/23/15 07:48 07/23/15 07:48 07/23/15 06:00 07/23/15 07:48 General- resting comfortable, pt does not withdraw to pain HEENT- PEERL CV- S1S2 RRR no murmur/rub/gallops Lungs- coarse breath sounds B/L no wheezing/rhonchi/rales Abdomen- soft NT/ND no guarding/rebound +BS Extremities- B/L UE 1+ pitting edema Lines: ETT/NGT/Schwartz/Rectal CBCD WBC 11.0 K/mm3 (4.0-10.0) H 07/23/15 05:20 RBC 3.17 M/mm3 (4.00-5.60) L 07/23/15 05:20 Hgb 9.2 GM/dL (11.7-16.9) L 07/23/15 05:20 Hct 28.3 % (35.4-49) L 07/23/15 05:20 MCV 89.4 fl (80-96) 07/23/15 05:20 MCHC 32.6 g/dl (32.0-35.9) 07/23/15 05:20 RDW 14.2 % (11.9-15.9) 07/23/15 05:20 Plt Count 241 K/MM3 (134-434) 07/23/15 05:20 MPV 8.0 fl (7.5-11.1) 07/23/15 05:20 CMP Sodium 145 mmol/L (136-145) 07/23/15 05:20 Potassium 3.8 mmol/L (3.5-5.1) 07/23/15 05:20 Chloride 107 mmol/L (98-107) 07/23/15 05:20 Carbon Dioxide 32 mmol/L (21-32) 07/23/15 05:20 Anion Gap 6 (8-16) L 07/23/15 05:20 BUN 19 mg/dL (7-18) H 07/23/15 05:20 Creatinine 0.8 mg/dL (0.6-1.3) 07/23/15 05:20 Creat Clearance w eGFR > 60 (>60) 07/23/15 05:20 Calcium 9.4 mg/dL (8.5-10.1) 07/23/15 05:20 Total Bilirubin 0.3 mg/dL (0.2-1.0) 07/23/15 05:20 AST 17 U/L (15-37) 07/23/15 05:20 ALT 19 U/L (12-78) D 07/23/15 05:20 Alkaline Phosphatase 102 U/L (45-117) 07/23/15 05:20 Total Protein 6.7 g/dl (6.4-8.2) 07/23/15 05:20 Albumin 2.5 g/dl (3.4-5.0) L 07/23/15 05:20 A/P 75 yo M with PMH HTN, DM, inguinal hernia a/w BRBPR and melena with multiple syncopal episodes. 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 Neuro- Anoxic brain injury s/p brainstem CVA- +brainstem functioning (pupils reactive, breathing over the vent). Minimal doses of versed required. unresponsive. 2. CV- HTN- uncontrolled. will cont to monitor and titrate medications accordingly. Cont lisinopril/metoprolol. 3. Respiratory- Intubated. saturating well on vent.NPO for bedside trach this morning. 4. Abdomen- s/p R hemicolectomy. tolerating enteral feeds. Evaluation for PEG 5. ID- C. diff -Afebrile. mild leukocytosis. on vanco po day 7 6. Endo- DM- uncontrolled. Will resume levemir 12 units at bedtime. will titrate for optimization of sugars, cont FS, ISS 7. DVT/GI PPx- on scd, protonix 8. Poor prognosis, DNR. Pt may go to floors tomorrow if remains hemodynamically stable I spent 35 minutes Critical Care time, excluding separately billable procedures , involving high complexity decision making to assess, manipulate and support vital system function(s) to treat single or multiple vital organ system failure and/or to prevent further life threatening deterioration of the patient's condition.
--- NOTE | 2015-07-23 08:50 | PN ---
Progress Note (short form) - Note Progress Note: Progress Note PULM/CCM Patient Name: CRUZ LEE Date of : 1940 Patient Status: Inpatient Attending Provider: Yolis Arthur Patient seen and examined in the ICU. Intubated on AC Mode of vent. No change in mental status. For bedside Trach this AM. Intake & Output 07/20/15 07/21/15 07/22/15 07/23/15 23:59 23:59 23:59 23:59 Intake Total 1270 1350 940 491 Output Total 1900 2050 3150 500 Balance -630 -700 -2210 -9 Weight 166 lb 0.129 oz 161 lb 4.8 oz 157 lb 9 oz 155 lb 6.4 oz Last Vital Signs Temp Pulse Resp BP Pulse Ox 98.2 F 83 13 143/77 98 07/23/15 06:00 07/23/15 08:00 07/23/15 08:00 07/23/15 08:00 07/23/15 07:48 Active Medications Acetaminophen (Tylenol Oral Solution -) 650 mg NGT Q6H PRN PRN Reason: FEVER Last Admin: 07/21/15 20:37 Dose: 650 mg Amlodipine Besylate (Norvasc -) 10 mg PO DAILY [facility] Last Admin: 07/22/15 09:36 Dose: 10 mg Chlorhexidine Gluconate (Hibiclens For Decolonization -) 1 applic TP HS KWAKU Last Admin: 07/22/15 22:02 Dose: 1 applic Chlorhexidine Gluconate (Peridex -) 15 ml MM BID KWAKU Last Admin: 07/22/15 22:01 Dose: 15 ml Pantoprazole Sodium 40 mg/ (Sodium Chloride) 100 mls @ 200 mls/hr IVPB BID KWAKU Last Admin: 07/22/15 22:01 Dose: 200 mls/hr Propofol (Diprivan -) 100 mls @ 2.144 mls/hr IVPB TITR KWAKU; 5 MCG/KG/MIN PRN Reason: Protocol Last Titration: 07/23/15 08:32 Dose: 10 mcg/kg/min Insulin Aspart (Novolog Flexpen Sliding Scale -) 0 units SQ Q6HPO KWAKU PRN Reason: Protocol Last Admin: 07/23/15 06:13 Dose: 2 units Insulin Detemir (Levemir Flexpen -) 6 units SQ HS [facility] Last Admin: 07/22/15 22:01 Dose: 6 units Lisinopril (Prinivil -) 20 mg PO DAILY [facility] Metoprolol Tartrate (Lopressor Injection -) 5 mg IVPUSH Q6H PRN PRN Reason: HYPERTENSION Last Admin: 07/21/15 20:38 Dose: 5 mg Metoprolol Tartrate (Lopressor -) 75 mg PO BID [facility] Last Admin: 07/22/15 22:01 Dose: 75 mg Midazolam HCl (Versed -) 2 mg IVPUSH Q6H PRN PRN Reason: AGITATION Last Admin: 07/22/15 21:55 Dose: 2 mg Multivitamins (Thera-Plus -) 5 ml PO DAILY [facility] Last Admin: 07/22/15 09:37 Dose: 5 ml Ondansetron HCl (Zofran Injection -) 4 mg IVPB Q6H PRN PRN Reason: NAUSEA Vancomycin HCl (Vancomycin Oral Solution) 125 mg PEG Q6HPO [facility] Last Admin: 07/23/15 05:39 Dose: Not Given Gen: intubated, minimally repsonsive Heart: S1S2 Lung: decreased breath sounds at the bases Abd: soft, (+) BS Ext: (+) edema Laboratory Results - last 24 hr 07/22/15 07/22/15 07/22/15 11:12 11:54 17:47 WBC RBC Hgb Hct MCV MCHC RDW Plt Count MPV INR PTT (Actin FS) Sodium Potassium Chloride Carbon Dioxide Anion Gap BUN Creatinine Creat Clearance w eGFR POC Glucometer 252.52278 262.56408 Random Glucose Calcium Total Bilirubin AST ALT Alkaline Phosphatase Total Protein Albumin Blood Type O POSITIVE Antibody Screen Negative 07/22/15 07/23/15 07/23/15 21:34 00:14 05:20 WBC 11.0 H RBC 3.17 L Hgb 9.2 L Hct 28.3 L MCV 89.4 MCHC 32.6 RDW 14.2 Plt Count 241 MPV 8.0 INR 1.31 H PTT (Actin FS) 28.6 Sodium 145 Potassium 3.8 Chloride 107 Carbon Dioxide 32 Anion Gap 6 L BUN 19 H Creatinine 0.8 Creat Clearance w eGFR > 60 POC Glucometer 228.78548 213.08396 Random Glucose 172 H Calcium 9.4 Total Bilirubin 0.3 AST 17 ALT 19 D Alkaline Phosphatase 102 Total Protein 6.7 Albumin 2.5 L Blood Type Antibody Screen 07/23/15 06:10 WBC RBC Hgb Hct MCV MCHC RDW Plt Count MPV INR PTT (Actin FS) Sodium Potassium Chloride Carbon Dioxide Anion Gap BUN Creatinine Creat Clearance w eGFR POC Glucometer [phone] Random Glucose Calcium Total Bilirubin AST ALT Alkaline Phosphatase Total Protein Albumin Blood Type Antibody Screen IMP: Acute Brainstem CVA S/P Right Hemicoletomy due to Acute Lower Diverticular GI Bleed Acute Blood Loss Anemia Acute Respiratory Failure Pneumonia likely aspiration HTN DM CKD C diff Ag (+) PLAN: - For Bedside Trach - PPI - Antibiotics per ID - Enteral feeds as tolerated - DVT/GI prophylaxis - Floor is stable in the AM Dr Agosto CCTime 35"
--- NOTE | 2015-07-23 09:46 | OP ---
Operative Note - Note: Operative Date: 07/23/15 Pre-Operative Diagnosis: Resp Failure Operation: percutaneous tracheostomy Findings: size [address] Post-Operative Diagnosis: Same as Pre-op Surgeon: Elia Leal Anesthesia: General Estimated Blood Loss (mls): 5 Fluid Volume Replaced (mls): 100 Operative Report Dictated: Yes
[2015-07-23] MEDS: LISINOPRIL 20 MG TABLET (FP) PO SCH (10:01)
[2015-07-23] MEDS: METOPROLOL TARTRATE 50 MG TABLET (FP) PO SCH ×2 (10:01→22:00)
[2015-07-23] MEDS: amLODIPine BESYLATE 10 MG TABLET (FP) PO SCH (10:01)
[2015-07-23] MEDS: CHLORHEXIDINE GLUCONATE 0.12% 15ML CUP MM SCH ×2 (10:01→22:00)
--- NOTE | 2015-07-23 10:01 | PROC ---
Intubation - Intubation Reason for Intubation: Respiratory Failure, Airway Protection, Ventilatory Failure Intubation Method: orotracheal Blade used: Glidescope Tube Size (cm): 7.5 Tube position @ lip (cm): 22 Tube position confirmed by: Direct visualization, CO2 detector, Chest x-ray, Breath sounds Breath Sounds after Intubation: equal Post Intubation Xray: Yes
[2015-07-23] MEDS: MULTIVITAMINS THERAPEUTIC PO SCH (10:02)
[2015-07-23] MEDS: PANTOPRAZOLE SODIUM 40 MG in SODIUM CHLORIDE 100 ML IVPB SCH ×2 (10:02→22:00)
--- NOTE | 2015-07-23 10:44 | PROC ---
Procedure Note Procedure: Bilateral Bronchoscopy. After informed consent was taken the patient was given Propfol and Rocuronium in preparation for the Trach placement. The bronchscope was inserted via the ETT. The areli was visualized. The distal airways were inspected. Copious secretions were noted throughout. No endobronchial lesions noted. The Bronchoscope was withdrawn to the upper 1/3 of the trachea and helped too guide a placement of a Percutaneous Tracheostomy. Dr Agosto
[2015-07-23] MEDS: CHLORHEXIDINE GLUCONATE 4% CLEANSER FOR DECOLONIZATION TP SCH (22:00)
[2015-07-23] MEDS: INSULIN DETEMIR SQ SCH (22:00)
[2015-07-23] MEDS: PROPOFOL 100 ML IVPB SCH (22:05)
[2015-07-24] MEDS: VANCOMYCIN 250 MG/5 ML ORAL SOLUTION PEG SCH ×4 (06:06→18:35)
[2015-07-24] MEDS: INSULIN SLIDING SCALE (NOVOLOG) 1 VIAL SQ SCH ×4 (06:13→18:35)
[2015-07-24 06:38] LABS: BASOPHIL 0.5 % (0-2.0); EOSINOPHIL 1.7 % (0-4.5); MCH 28.9 pg (25.7-33.7); MCHC 32.5 g/dl (32.0-35.9); MEAN CELL VOLUME 88.9 fl (80-96); MEAN PLT VOLUME 7.9 fl (7.5-11.1); NEUTROPHILS 82.7 % (42.8-82.8); PLATELET COUNT 201 K/MM3 (134-434); RDW 14.2 % (11.9-15.9); WHITE BLOOD COUNT 13.2 K/mm3 (4.0-10.0)
[2015-07-24 07:17] LABS: ALBUMIN 2.5 g/dl (3.4-5.0); ALK PHOS 88 U/L (45-117); ANION GAP 8 (8-16); BILIRUBIN,TOTAL 0.4 mg/dL (0.2-1.0); CALCIUM 9.1 mg/dL (8.5-10.1); CO2 30 mmol/L (21-32); CREATININE 0.8 mg/dL (0.6-1.3); GLUCOSE,RANDOM 197 mg/dL (74-106); SGOT/AST 17 U/L (15-37); SGPT/ALT 16 U/L (12-78); TOT PROT 6.8 g/dl (6.4-8.2)
[2015-07-24] MEDS: PROPOFOL 100 ML IVPB SCH ×2 (07:30→23:18)
--- NOTE | 2015-07-24 08:43 | PN ---
Progress Note (short form) - Note Progress Note: Subjective: trached .still unconscious on propofol . no events last night Objective: Last Vital Signs Temp Pulse Resp BP Pulse Ox 98.3 F 110 H 16 179/93 99 07/24/15 02:00 07/24/15 07:47 07/24/15 07:47 07/24/15 02:00 07/24/15 07:47 Physical Exam: NAD, trached .deos not open his eyes today to sturnal rub CV: RRR, no MRG lungs:course breath sounds b/l ext : no edema on legs. hands edema , no erythema abd : soft, NT, ND , nl BS neuro : unconscious,no facial droop , Labs: Laboratory Results - last 24 hr 07/23/15 07/24/15 10:54 05:20 WBC 13.2 H RBC 3.21 L Hgb 9.3 L Hct 28.5 L MCV 88.9 MCHC 32.5 RDW 14.2 Plt Count 201 MPV 7.9 Neutrophils % 82.7 Lymphocytes % 9.2 D Monocytes % 5.9 Eosinophils % 1.7 Basophils % 0.5 Sodium 145 Potassium 3.9 Chloride 107 Carbon Dioxide 30 Anion Gap 8 BUN 19 H Creatinine 0.8 Creat Clearance w eGFR > 60 POC Glucometer 213.75356 Random Glucose 197 H Calcium 9.1 Total Bilirubin 0.4 D AST 17 ALT 16 Alkaline Phosphatase 88 Total Protein 6.8 Albumin 2.5 L Assessment/Plan: 5 yo M with PMH HTN, DM, inguinal hernia a/w BRBPR and melena with multiple syncopal episodes. Dx with persistent diverticular bleed with R hemicolectomy, course complicated with CVA now in the ICU unresponsive and anoxic brain injury had tracheostomy on 07/23. 1- GI bleed, s/p colonoscopy and R hemicolectomy. now stable 2- Anoxic brain injury and CVA, now o n propofol . will try to wean s/p Trach yesterday. plan for PEG by GI 3- uncontrolled HTN: cont norvasc and metoprolol. BP better today , but slightly tachy ( 105-107 on tele ) 4- DM : cont levemir and SSI 5- C diff colitis : day 8 on po vanco 6- dispo : stable to transfer t floor critical care time spent 35 min DNR
--- NOTE | 2015-07-24 09:12 | OP ---
DATE OF OPERATION: 07/23/2015 OPERATION: Percutaneous tracheostomy size 8 Shiley. PREOPERATIVE DIAGNOSIS: Respiratory failure. POSTOPERATIVE DIAGNOSIS: Respiratory failure. ANESTHESIA: General. ANESTHESIOLOGIST: ICU team. ESTIMATED BLOOD LOSS: 5 ml. IV FLUIDS: 100 ml. FINDINGS: Size 8 Shiley placed percutaneously under bronchoscopic guidance. DESCRIPTION OF PROCEDURE: Prior to starting the procedure, a final check was made to confirm the patient's readiness. Patient was placed supine in the ICU bed with a slight neck extension. The neck and chest were prepped and draped in the usual sterile fashion. A bronchoscopy was performed by Dr. Agosto and will be dictated separately. Under bronchoscopic guidance, an access needle was placed through a 1 cm incision, 1 cm above the sternal notch. The access needle was watched entering the anterior surface of the trachea and a guidewire was threaded toward the areli. Sequential dilation over the wire was done under bronchoscopic guidance until a size 8 Shiley was placed and confirmed by bronchoscopy. The cuff was inflated, the tracheostomy was secured with four Prolene stitches and the procedure was done. A dressing was applied. The patient tolerated the procedure well. I was present throughout the case and remained available afterward. Elia Leal MD HJT/htsab
[2015-07-24] MEDS: CHLORHEXIDINE GLUCONATE 0.12% 15ML CUP MM SCH ×2 (09:23→23:17)
[2015-07-24] MEDS: amLODIPine BESYLATE 10 MG TABLET (FP) PO SCH (09:23)
[2015-07-24] MEDS: METOPROLOL TARTRATE 50 MG TABLET (FP) PO SCH ×2 (09:23→23:16)
[2015-07-24] MEDS: LISINOPRIL 20 MG TABLET (FP) PO SCH (09:23)
[2015-07-24] MEDS: MULTIVITAMINS THERAPEUTIC PO SCH (09:24)
[2015-07-24] MEDS: PANTOPRAZOLE SODIUM 40 MG in SODIUM CHLORIDE 100 ML IVPB SCH ×2 (09:24→23:17)
[2015-07-24] MEDS: ACETAMINOPHEN 650 MG/20.3 ML ORAL SOLUTION (CUPS) NGT PRN (09:45)
--- NOTE | 2015-07-24 11:27 | PN ---
GI Progress Note Subjective: s/p trachesotomy , pt on tube feeds - Objective Vital Signs: Vital Signs Temperature 101.6 F H 07/24/15 10:00 Pulse Rate 88 07/24/15 10:00 Respiratory Rate 17 07/24/15 10:00 Blood Pressure 158/83 07/24/15 10:00 O2 Sat by Pulse Oximetry (%) 99 07/24/15 09:00 Constitutional: Well Nourished, Other (on ventilator) Eyes: Yes: Conjunctiva Clear HENT: Yes: Atraumatic Neck: Yes: Supple Cardiovascular: Yes: Regular Rate and Rhythm Respiratory: Yes: CTA Bilaterally ...Palpate: Yes: Soft. No: Firm/Rigid, Guarding, Hepatomegaly, Mass, Splenomegaly, Tenderness Labs: CBC, BMP 07/24/15 05:20 07/24/15 05:20 INR, PTT INR 1.31 (0.86-1.14) H 07/23/15 05:20 Problem List - Problems (1) Dysphagia Assessment/Plan: R.for PEG insertion, informed consent obtained from her daughter Michelle
--- NOTE | 2015-07-24 14:04 | PN ---
Progress Note (short form) - Note Progress Note: Pulm/CCM Patient seen and examined in the ICU. 24HR: Trached without incident Hemodynamically stable fever today but no change in secretions, will send trach aspirated Vital Signs Temp 101.6 F H 07/24/15 10:00 Pulse 90 07/24/15 12:00 Resp 19 07/24/15 12:00 BP 143/73 07/24/15 12:00 Pulse Ox 99 07/24/15 09:00 Intake & Output 07/23/15 07/24/15 07/24/15 23:59 11:59 23:59 Intake Total 1008 250 Output Total 1200 Balance -192 250 Weight 70.5 kg Intake: IV 108 50 Diprivan - 100 ml @ 5 MCG 108 50 /KG/MIN 2.144 mls/hr IVPB TITR [facility] Rx#:[id number] IVPB 200 200 Tube Feeding 250 Packed Cells 350 Tube Irrigant 100 Output: Urine 900 Schwartz 900 Stool 300 Other: Voiding Method Indwelling Catheter Indwelling Catheter Weight Measurement Method Built in [facility] Active Medications Acetaminophen (Tylenol Oral Solution -) 650 mg NGT Q6H PRN PRN Reason: FEVER Last Admin: 07/24/15 09:45 Dose: 650 mg Amlodipine Besylate (Norvasc -) 10 mg PO DAILY [facility] Last Admin: 07/24/15 09:23 Dose: 10 mg Chlorhexidine Gluconate (Hibiclens For Decolonization -) 1 applic TP HS [facility] Last Admin: 07/23/15 22:00 Dose: 1 applic Chlorhexidine Gluconate (Peridex -) 15 ml MM BID [facility] Last Admin: 07/24/15 09:23 Dose: 15 ml Pantoprazole Sodium 40 mg/ (Sodium Chloride) 100 mls @ 200 mls/hr IVPB BID [facility] Last Admin: 07/24/15 09:24 Dose: 200 mls/hr Propofol (Diprivan -) 100 mls @ 2.144 mls/hr IVPB TITR KWAKU; 5 MCG/KG/MIN PRN Reason: Protocol Last Titration: 07/24/15 08:08 Dose: 0 mcg/kg/min Insulin Aspart (Novolog Flexpen Sliding Scale -) 0 units SQ Q6HPO [facility] PRN Reason: Protocol Last Admin: 07/24/15 11:59 Dose: 6 units Insulin Detemir (Levemir Flexpen -) 12 units SQ HS [facility] Last Admin: 07/23/15 22:00 Dose: Not Given Lisinopril (Prinivil -) 20 mg PO DAILY [facility] Last Admin: 07/24/15 09:23 Dose: 20 mg Metoprolol Tartrate (Lopressor Injection -) 5 mg IVPUSH Q6H PRN PRN Reason: HYPERTENSION Last Admin: 07/21/15 20:38 Dose: 5 mg Metoprolol Tartrate (Lopressor -) 75 mg PO BID [facility] Last Admin: 07/24/15 09:23 Dose: 75 mg Multivitamins (Thera-Plus -) 5 ml PO DAILY [facility] Last Admin: 07/24/15 09:24 Dose: 5 ml Ondansetron HCl (Zofran Injection -) 4 mg IVPB Q6H PRN PRN Reason: NAUSEA Vancomycin HCl (Vancomycin Oral Solution) 125 mg PEG Q6HPO [facility] Last Admin: 07/24/15 11:59 Dose: 125 mg Gen: trached, obtunded Heart: S1S2 Lung: decreased breath sounds at the bases Abd: soft, (+) BS Ext: (+) edema bilaterally Laboratory Last Values WBC 13.2 K/mm3 (4.0-10.0) H 07/24/15 05:20 Corrected WBC (auto) Cancelled 06/26/15 21:50 RBC 3.21 M/mm3 (4.00-5.60) L 07/24/15 05:20 Hgb 9.3 GM/dL (11.7-16.9) L 07/24/15 05:20 Hct 28.5 % (35.4-49) L 07/24/15 05:20 MCV 88.9 fl (80-96) 07/24/15 05:20 MCHC 32.5 g/dl (32.0-35.9) 07/24/15 05:20 RDW 14.2 % (11.9-15.9) 07/24/15 05:20 Plt Count 201 K/MM3 (134-434) 07/24/15 05:20 MPV 7.9 fl (7.5-11.1) 07/24/15 05:20 Add Manual Diff Cancelled 06/26/15 21:50 Neutrophils % 82.7 % (42.8-82.8) 07/24/15 05:20 Lymphocytes % 9.2 % (8-40) D 07/24/15 05:20 Monocytes % 5.9 % (3.8-10.2) 07/24/15 05:20 Eosinophils % 1.7 % (0-4.5) 07/24/15 05:20 Basophils % 0.5 % (0-2.0) 07/24/15 05:20 Band Neutrophils 6.0 % (0-10) 06/28/15 09:35 Differential Comment Manual diff done 06/28/15 09:35 Smudge Cells Cancelled 06/26/15 21:50 Platelet Estimate Slt decreased (NORMAL) 06/28/15 09:35 Platelet Comment No clumping noted 06/28/15 09:35 Platelet Comment No clotting detected 06/28/15 09:35 Normal RBC Morphology Cancelled 06/26/15 21:50 RBC Morphology Cancelled 06/26/15 21:50 INR 1.31 (0.86-1.14) H 07/23/15 05:20 PTT (Actin FS) 28.6 SECONDS (23.5-38.3) 07/23/15 05:20 Anticoagulation Therapy Y 07/11/15 07:07 Puncture Site Right radial 07/11/15 07:07 ABG pH 7.44 (7.35-7.45) 07/11/15 07:07 ABG pCO2 at Pt Temp 42.1 mmHg (35-45) 07/11/15 07:07 ABG pO2 at Pt Temp 113.0 mmHg (70-100) H D 07/11/15 07:07 ABG HCO3 27.8 meq/L (22-26) H 07/11/15 07:07 ABG O2 Sat (Measured) 99.1 % (90-98.9) H 07/11/15 07:07 ABG O2 Content 13.3 % vol (15-22) L 07/11/15 07:07 ABG Base Excess 3.8 meq/l (-2-2) H 07/11/15 07:07 Izaiah Test Positive 07/11/15 07:07 O2 Delivery Device Ventilator 07/11/15 07:07 Oxygen Flow Rate 30% 07/11/15 07:07 Vent Mode A/c 07/11/15 07:07 Vent Rate 10 07/11/15 07:07 Mechanical Rate Yes 07/11/15 07:07 PEEP 5.0 cmH2O 07/11/15 07:07 Pressure Support Vent 500 07/11/15 07:07 Sodium 145 mmol/L (136-145) 07/24/15 05:20 Potassium 3.9 mmol/L (3.5-5.1) 07/24/15 05:20 Chloride 107 mmol/L (98-107) 07/24/15 05:20 Carbon Dioxide 30 mmol/L (21-32) 07/24/15 05:20 Anion Gap 8 (8-16) 07/24/15 05:20 BUN 19 mg/dL (7-18) H 07/24/15 05:20 Creatinine 0.8 mg/dL (0.6-1.3) 07/24/15 05:20 Creat Clearance w eGFR > 60 (>60) 07/24/15 05:20 POC Glucometer 213.38040 UNITS (()) 07/23/15 10:54 Random Glucose 197 mg/dL (74-106) H 07/24/15 05:20 Lactic Acid 1.606 mmol/L (0.4-2.0) 06/27/15 10:10 Calcium 9.1 mg/dL (8.5-10.1) 07/24/15 05:20 Phosphorus 4.3 mg/dL (2.5-4.9) 07/22/15 05:20 Magnesium 2.0 mg/dL (1.8-2.4) 07/22/15 05:20 Total Bilirubin 0.4 mg/dL (0.2-1.0) D 07/24/15 05:20 AST 17 U/L (15-37) 07/24/15 05:20 ALT 16 U/L (12-78) 07/24/15 05:20 Alkaline Phosphatase 88 U/L (45-117) 07/24/15 05:20 Creatine Kinase 62 IU/L (38-174) 06/28/15 09:35 Creatine Kinase Index 0.7 % (0.0-5.0) 06/26/15 21:50 CK-MB (CK-2) 1.077 ng/ml (0.3-4.0) 06/26/15 21:50 CK-MB (CK-2) Rel Index Cancelled 06/26/15 21:50 Troponin I 0.07 ng/ml (0.03-0.5) D 07/09/15 05:00 Total Protein 6.8 g/dl (6.4-8.2) 07/24/15 05:20 Albumin 2.5 g/dl (3.4-5.0) L 07/24/15 05:20 Lipase 140 U/L (73-293) 06/26/15 21:50 Prolactin 19.8 ng/ml (4.0-15.2) H 07/02/15 05:20 Urine Color Yellow 06/28/15 10:00 Urine Appearance Slcloudy 06/28/15 10:00 Urine pH 5.0 (5.0-8.0) 06/28/15 10:00 Ur Specific [place] 1.026 (1.001-1.035) 06/28/15 10:00 Urine Protein Negative (NEGATIVE) 06/28/15 10:00 Urine Glucose (UA) Negative (NEGATIVE) 06/28/15 10:00 Urine Ketones Negative (NEGATIVE) 06/28/15 10:00 Urine Blood Negative (NEGATIVE) 06/28/15 10:00 Urine Nitrite Negative (NEGATIVE) 06/28/15 10:00 Urine Bilirubin Negative (NEGATIVE) 06/28/15 10:00 Urine Urobilinogen Negative E.U./dl (0.2-1.0) 06/28/15 10:00 Ur Leukocyte Esterase Negative (NEGATIVE) 06/28/15 10:00 Stool Occult Blood Negative (NEGATIVE) 07/02/15 12:00 Hepatitis C Ab (EIA) <0.1 s/co ratio (0.0-0.9) 07/03/15 05:15 Blood Type O POSITIVE 07/22/15 11:54 Antibody Screen Negative 07/22/15 11:54 Crossmatch See Detail 06/30/15 15:15 Crossmatch IS Only See Detail 06/26/15 21:50 Spec Expiration Date 06/26/15 21:50 Microbiology 07/15/15 11:30 Blood - Peripheral Venous Blood Culture - Final NO GROWTH AFTER 5 DAYS INCUBATION 07/15/15 11:30 Blood - Peripheral Venous Blood Culture - Final NO GROWTH AFTER 5 DAYS INCUBATION 07/10/15 10:30 Stool Stool Culture - Final NO SALMONELLA, SHIGELLA, YERSINIA, CAMPYLOBACTER OR E COLI 0157 ISOLATED 07/10/15 10:35 Stool Clostridium difficile Antigen (MACHO) - Final 07/10/15 10:35 Stool Clostridium difficile Toxin Assay - Final 07/10/15 10:30 Stool Gram Stain - Final 07/02/15 18:00 Blood - Peripheral Venous Blood Culture - Final NO GROWTH AFTER 5 DAYS INCUBATION 07/02/15 18:00 Blood - Peripheral Venous Blood Culture - Final NO GROWTH AFTER 5 DAYS INCUBATION 06/28/15 09:32 Blood - Peripheral Venous Blood Culture - Final NO GROWTH AFTER 5 DAYS INCUBATION 06/28/15 09:32 Blood - Peripheral Venous Blood Culture - Final NO GROWTH AFTER 5 DAYS INCUBATION 06/28/15 17:30 Sputum - Endotrachea Suction/Ventilator Gram Stain - Final 06/28/15 17:30 Sputum - Endotrachea Suction/Ventilator Sputum Culture - Final NORMAL RESPIRATORY ARMAND 06/27/15 20:30 Urine - Urine Schwartz Urine Culture - Final NO GROWTH OBTAINED 06/28/15 10:00 Urine For Antigen Detection Legionella Antigen - Final 06/28/15 10:00 Urine For Antigen Detection Streptococcus pneumoniae Antigen (M - Final IMP: Acute Brainstem CVA S/P Right Hemicoletomy due to Acute Lower Diverticular GI Bleed Acute Blood Loss Anemia Acute Respiratory Failure Pneumonia likely aspiration HTN DM CKD C diff Ag (+) PLAN: - S/p trach - PPI - Antibiotics per ID, - Enteral feeds as tolerated - DVT/GI prophylaxis - Ok for tx to floor, need plan for [place] dispo Luis Berry [id number] CCTime 35"
[2015-07-24] MEDS: CHLORHEXIDINE GLUCONATE 4% CLEANSER FOR DECOLONIZATION TP SCH (23:14)
[2015-07-24] MEDS: INSULIN DETEMIR SQ SCH (23:17)
[2015-07-25 06:38] LABS: BASOPHIL 0.6 % (0-2.0); EOSINOPHIL 3.1 % (0-4.5); MCHC 32.3 g/dl (32.0-35.9); MEAN CELL VOLUME 89.7 fl (80-96); NEUTROPHILS 79.4 % (42.8-82.8); PLATELET COUNT 189 K/MM3 (134-434); RDW 14.6 % (11.9-15.9); WHITE BLOOD COUNT 12.5 K/mm3 (4.0-10.0)
[2015-07-25 06:47] LABS: INR 1.38 (0.86-1.14); PROTHROMBIN TIME (PATIENT) 14.6 SEC (9.5-11.7)
[2015-07-25] MEDS: INSULIN SLIDING SCALE (NOVOLOG) 1 VIAL SQ SCH ×4 (06:50→17:06)
[2015-07-25 07:03] LABS: CALCIUM 9.1 mg/dL (8.5-10.1); CREATININE 0.9 mg/dL (0.6-1.3)
[2015-07-25 07:04] LABS: PHOSPHOROUS 4.1 mg/dL (2.5-4.9)
--- NOTE | 2015-07-25 08:16 | PN ---
Progress Note (short form) - Note Progress Note: Pulm/CCM Patient seen and examined in the ICU. 24HR: Still with low grade temp sput sent yesterday, pending peg planned for Vital Signs Temp 99.3 F 07/25/15 06:00 Pulse 100 H 07/25/15 07:20 Resp 13 07/25/15 07:20 BP 172/83 07/25/15 06:00 Pulse Ox 99 07/25/15 07:20 Intake & Output 07/24/15 07/24/15 07/25/15 11:59 23:59 11:59 Intake Total 250 640 Output Total 550 400 Balance 250 -550 240 Weight 70.5 kg 71 kg Intake: IV 50 Diprivan - 100 ml @ 5 MCG 50 /KG/MIN 2.144 mls/hr IVPB TITR [facility] Rx#:[id number] IVPB 200 100 Tube Feeding 360 Tube Irrigant 180 Output: Urine 550 400 Schwartz 550 400 Other: Voiding Method Indwelling Catheter Indwelling Catheter Indwelling Catheter Weight Measurement Method Built in [facility] Built in [facility] Laboratory Last Values WBC 12.5 K/mm3 (4.0-10.0) H 07/25/15 05:20 Corrected WBC (auto) Cancelled 06/26/15 21:50 RBC 3.17 M/mm3 (4.00-5.60) L 07/25/15 05:20 Hgb 9.2 GM/dL (11.7-16.9) L 07/25/15 05:20 Hct 28.4 % (35.4-49) L 07/25/15 05:20 MCV 89.7 fl (80-96) 07/25/15 05:20 MCHC 32.3 g/dl (32.0-35.9) 07/25/15 05:20 RDW 14.6 % (11.9-15.9) 07/25/15 05:20 Plt Count 189 K/MM3 (134-434) 07/25/15 05:20 MPV 8.0 fl (7.5-11.1) 07/25/15 05:20 Add Manual Diff Cancelled 06/26/15 21:50 Neutrophils % 79.4 % (42.8-82.8) 07/25/15 05:20 Lymphocytes % 10.5 % (8-40) 07/25/15 05:20 Monocytes % 6.4 % (3.8-10.2) 07/25/15 05:20 Eosinophils % 3.1 % (0-4.5) D 07/25/15 05:20 Basophils % 0.6 % (0-2.0) 07/25/15 05:20 Band Neutrophils 6.0 % (0-10) 06/28/15 09:35 Differential Comment Manual diff done 06/28/15 09:35 Smudge Cells Cancelled 06/26/15 21:50 Platelet Estimate Slt decreased (NORMAL) 06/28/15 09:35 Platelet Comment No clumping noted 06/28/15 09:35 Platelet Comment No clotting detected 06/28/15 09:35 Normal RBC Morphology Cancelled 06/26/15 21:50 RBC Morphology Cancelled 06/26/15 21:50 INR 1.38 (0.86-1.14) H 07/25/15 05:20 PTT (Actin FS) 28.6 SECONDS (23.5-38.3) 07/23/15 05:20 Anticoagulation Therapy Y 07/11/15 07:07 Puncture Site Right radial 07/11/15 07:07 ABG pH 7.44 (7.35-7.45) 07/11/15 07:07 ABG pCO2 at Pt Temp 42.1 mmHg (35-45) 07/11/15 07:07 ABG pO2 at Pt Temp 113.0 mmHg (70-100) H D 07/11/15 07:07 ABG HCO3 27.8 meq/L (22-26) H 07/11/15 07:07 ABG O2 Sat (Measured) 99.1 % (90-98.9) H 07/11/15 07:07 ABG O2 Content 13.3 % vol (15-22) L 07/11/15 07:07 ABG Base Excess 3.8 meq/l (-2-2) H 07/11/15 07:07 Izaiah Test Positive 07/11/15 07:07 O2 Delivery Device Ventilator 07/11/15 07:07 Oxygen Flow Rate 30% 07/11/15 07:07 Vent Mode A/c 07/11/15 07:07 Vent Rate 10 07/11/15 07:07 Mechanical Rate Yes 07/11/15 07:07 PEEP 5.0 cmH2O 07/11/15 07:07 Pressure Support Vent 500 07/11/15 07:07 Sodium 146 mmol/L (136-145) H 07/25/15 05:20 Potassium 3.7 mmol/L (3.5-5.1) 07/25/15 05:20 Chloride 109 mmol/L (98-107) H 07/25/15 05:20 Carbon Dioxide 32 mmol/L (21-32) 07/25/15 05:20 Anion Gap 5 (8-16) L 07/25/15 05:20 BUN 22 mg/dL (7-18) H 07/25/15 05:20 Creatinine 0.9 mg/dL (0.6-1.3) 07/25/15 05:20 Creat Clearance w eGFR > 60 (>60) 07/24/15 05:20 POC Glucometer 226.56607 UNITS (()) 07/24/15 16:29 Random Glucose 211 mg/dL (74-106) H 07/25/15 05:20 Lactic Acid 1.606 mmol/L (0.4-2.0) 06/27/15 10:10 Calcium 9.1 mg/dL (8.5-10.1) 07/25/15 05:20 Phosphorus 4.1 mg/dL (2.5-4.9) 07/25/15 05:20 Magnesium 2.0 mg/dL (1.8-2.4) 07/25/15 05:20 Total Bilirubin 0.4 mg/dL (0.2-1.0) D 07/24/15 05:20 AST 17 U/L (15-37) 07/24/15 05:20 ALT 16 U/L (12-78) 07/24/15 05:20 Alkaline Phosphatase 88 U/L (45-117) 07/24/15 05:20 Creatine Kinase 62 IU/L (38-174) 06/28/15 09:35 Creatine Kinase Index 0.7 % (0.0-5.0) 06/26/15 21:50 CK-MB (CK-2) 1.077 ng/ml (0.3-4.0) 06/26/15 21:50 CK-MB (CK-2) Rel Index Cancelled 06/26/15 21:50 Troponin I 0.07 ng/ml (0.03-0.5) D 07/09/15 05:00 Total Protein 6.8 g/dl (6.4-8.2) 07/24/15 05:20 Albumin 2.5 g/dl (3.4-5.0) L 07/24/15 05:20 Lipase 140 U/L (73-293) 06/26/15 21:50 Prolactin 19.8 ng/ml (4.0-15.2) H 07/02/15 05:20 Urine Color Yellow 06/28/15 10:00 Urine Appearance Slcloudy 06/28/15 10:00 Urine pH 5.0 (5.0-8.0) 06/28/15 10:00 Ur Specific [place] 1.026 (1.001-1.035) 06/28/15 10:00 Urine Protein Negative (NEGATIVE) 06/28/15 10:00 Urine Glucose (UA) Negative (NEGATIVE) 06/28/15 10:00 Urine Ketones Negative (NEGATIVE) 06/28/15 10:00 Urine Blood Negative (NEGATIVE) 06/28/15 10:00 Urine Nitrite Negative (NEGATIVE) 06/28/15 10:00 Urine Bilirubin Negative (NEGATIVE) 06/28/15 10:00 Urine Urobilinogen Negative E.U./dl (0.2-1.0) 06/28/15 10:00 Ur Leukocyte Esterase Negative (NEGATIVE) 06/28/15 10:00 Stool Occult Blood Negative (NEGATIVE) 07/02/15 12:00 Hepatitis C Ab (EIA) <0.1 s/co ratio (0.0-0.9) 07/03/15 05:15 Blood Type O POSITIVE 07/22/15 11:54 Antibody Screen Negative 07/22/15 11:54 Crossmatch See Detail 06/30/15 15:15 Crossmatch IS Only See Detail 06/26/15 21:50 Spec Expiration Date 06/26/15 21:50 Gen: trached, obtunded Heart: S1S2 Lung: decreased breath sounds at the bases Abd: soft, (+) BS Ext: (+) edema bilaterally, L UE > R Neuro: minimal response to noxious stimuli Microbiology 07/15/15 11:30 Blood - Peripheral Venous Blood Culture - Final NO GROWTH AFTER 5 DAYS INCUBATION 07/15/15 11:30 Blood - Peripheral Venous Blood Culture - Final NO GROWTH AFTER 5 DAYS INCUBATION 07/10/15 10:30 Stool Stool Culture - Final NO SALMONELLA, SHIGELLA, YERSINIA, CAMPYLOBACTER OR E COLI 0157 ISOLATED 07/10/15 10:35 Stool Clostridium difficile Antigen (MACHO) - Final 07/10/15 10:35 Stool Clostridium difficile Toxin Assay - Final 07/10/15 10:30 Stool Gram Stain - Final 07/02/15 18:00 Blood - Peripheral Venous Blood Culture - Final NO GROWTH AFTER 5 DAYS INCUBATION 07/02/15 18:00 Blood - Peripheral Venous Blood Culture - Final NO GROWTH AFTER 5 DAYS INCUBATION 06/28/15 09:32 Blood - Peripheral Venous Blood Culture - Final NO GROWTH AFTER 5 DAYS INCUBATION 06/28/15 09:32 Blood - Peripheral Venous Blood Culture - Final NO GROWTH AFTER 5 DAYS INCUBATION 06/28/15 17:30 Sputum - Endotrachea Suction/Ventilator Gram Stain - Final 06/28/15 17:30 Sputum - Endotrachea Suction/Ventilator Sputum Culture - Final NORMAL RESPIRATORY ARMAND 06/27/15 20:30 Urine - Urine Schwartz Urine Culture - Final NO GROWTH OBTAINED 06/28/15 10:00 Urine For Antigen Detection Legionella Antigen - Final 06/28/15 10:00 Urine For Antigen Detection Streptococcus pneumoniae Antigen (M - Final IMP: Acute Brainstem CVA S/P Right Hemicoletomy due to Acute Lower Diverticular GI Bleed Acute Blood Loss Anemia Acute Respiratory Failure Pneumonia likely aspiration HTN DM CKD C diff Ag (+) PLAN: - S/p trach - PPI - Antibiotics per ID, trach asp pending - Enteral feeds as tolerated - DVT/GI prophylaxis - Ok for tx to floor, need plan for [place] dispo Luis Berry [id number] CCTime 35"
--- NOTE | 2015-07-25 08:54 | PN ---
Progress Note (short form) - Note Progress Note: Subjective: trached .still unconscious off sedation . no events last night Objective: Last Vital Signs Temp Pulse Resp BP Pulse Ox 99.3 F 100 H 10 L 172/83 99 07/25/15 06:00 07/25/15 07:20 07/25/15 08:29 07/25/15 06:00 07/25/15 08:29 Physical Exam: NAD, trached .deos not open his eyes to sturnal rub CV: RRR, no MRG lungs:course breath sounds b/l ext : no edema on legs. hands edema , no erythema abd : soft, NT, ND , nl BS neuro : unconscious,no facial droop , Labs: Laboratory Results - last 24 hr 07/24/15 07/24/15 07/24/15 06:11 11:57 16:29 WBC RBC Hgb Hct MCV MCHC RDW Plt Count MPV Neutrophils % Lymphocytes % Monocytes % Eosinophils % Basophils % INR Sodium Potassium Chloride Carbon Dioxide Anion Gap BUN Creatinine POC Glucometer 211.42845 254.14922 226.96395 Random Glucose Calcium Phosphorus Magnesium 07/25/15 05:20 WBC 12.5 H RBC 3.17 L Hgb 9.2 L Hct 28.4 L MCV 89.7 MCHC 32.3 RDW 14.6 Plt Count 189 MPV 8.0 Neutrophils % 79.4 Lymphocytes % 10.5 Monocytes % 6.4 Eosinophils % 3.1 D Basophils % 0.6 INR 1.38 H Sodium 146 H Potassium 3.7 Chloride 109 H Carbon Dioxide 32 Anion Gap 5 L BUN 22 H Creatinine 0.9 POC Glucometer Random Glucose 211 H Calcium 9.1 Phosphorus 4.1 Magnesium 2.0 Assessment/Plan: 5 yo M with PMH HTN, DM, inguinal hernia a/w BRBPR and melena with multiple syncopal episodes. Dx with persistent diverticular bleed with R hemicolectomy, course complicated with CVA now in the ICU unresponsive and anoxic brain injury had tracheostomy on 07/23. 1- GI bleed, s/p colonoscopy and R hemicolectomy. now stable 2- Anoxic brain injury and CVA, now off sedation. s/p Trach 07/23. plan for PEG by GI on Sunday 3- uncontrolled HTN: cont norvasc and metoprolol. BP better today 4- hypernatremia : increase free water with TF 5- DM : cont levemir and SSI 6- C diff colitis : day 07/12 on po vanco 7- dispo : stable to transfer t floor critical care time spent 35 min D/w ICU staff DNR
[2015-07-25] MEDS: amLODIPine BESYLATE 10 MG TABLET (FP) PO SCH (09:09)
[2015-07-25] MEDS: MULTIVITAMINS THERAPEUTIC PO SCH (09:09)
[2015-07-25] MEDS: PANTOPRAZOLE SODIUM 40 MG in SODIUM CHLORIDE 100 ML IVPB SCH ×2 (09:09→22:14)
[2015-07-25] MEDS: LISINOPRIL 20 MG TABLET (FP) PO SCH (09:09)
[2015-07-25] MEDS: CHLORHEXIDINE GLUCONATE 0.12% 15ML CUP MM SCH ×2 (09:09→22:14)
[2015-07-25] MEDS: METOPROLOL TARTRATE 50 MG TABLET (FP) PO SCH ×2 (09:09→22:14)
[2015-07-25] MEDS: VANCOMYCIN 250 MG/5 ML ORAL SOLUTION PO SCH ×2 (11:37→17:06)
[2015-07-25] MEDS: ACETAMINOPHEN 650 MG/20.3 ML ORAL SOLUTION (CUPS) NGT PRN (13:04)
[2015-07-25] MEDS: CHLORHEXIDINE GLUCONATE 4% CLEANSER FOR DECOLONIZATION TP SCH (22:13)
[2015-07-25] MEDS: INSULIN DETEMIR SQ SCH (22:13)
[2015-07-26] MEDS: INSULIN SLIDING SCALE (NOVOLOG) 1 VIAL SQ SCH ×5 (06:50→22:40)
[2015-07-26] MEDS: VANCOMYCIN 250 MG/5 ML ORAL SOLUTION PO SCH ×4 (06:50→17:36)
--- NOTE | 2015-07-26 08:26 | PN ---
Progress Note (short form) - Note Progress Note: Subjective: trached .still unconscious off sedation . no events last night Objective: Last Vital Signs Temp Pulse Resp BP Pulse Ox 99.8 F H 106 H 16 154/85 99 07/26/15 02:00 07/26/15 06:00 07/26/15 06:00 07/26/15 06:00 07/25/15 22:00 Physical Exam: NAD, trached .deos not open his eyes to sturnal rub CV: RRR, no MRG lungs:CTAB anteriorly ext: no edema on legs. hands edema , no erythema abd: soft, NT, ND , nl BS neuro : unconscious,no facial droop , Labs: Laboratory Results - last 24 hr 07/24/15 07/25/15 07/25/15 23:03 06:50 11:18 POC Glucometer 209.08108 205.61003 221.88347 07/25/15 07/25/15 07/26/15 16:42 22:06 05:15 POC Glucometer 215.14911 224.42973 252.62359 Assessment/Plan: 5 yo M with PMH HTN, DM, inguinal hernia a/w BRBPR and melena with multiple syncopal episodes. Dx with persistent diverticular bleed with R hemicolectomy, course complicated with CVA now in the ICU unresponsive and anoxic brain injury had tracheostomy on 07/23. 1- GI bleed, s/p colonoscopy and R hemicolectomy. now stable . H&H pending this am 2- Anoxic brain injury and CVA, now off sedation. s/p Trach 07/23. plan for PEG by GI on Sunday make NPO after MN 3- uncontrolled HTN: cont norvasc and metoprolol. BP better today 4- hypernatremia : free water with TF was inreased yesterday , no labs this am yet 5- DM :increase levemir to 14 u HS . cont SSI 6- C diff colitis : 08/11 on po vanco critical care time spent 35 min DNR
--- NOTE | 2015-07-26 09:05 | PN ---
Progress Note (short form) - Note Progress Note: Progress Note PULM/CCM Patient Name: CRUZ LEE Date of : 1940 Patient Status: Inpatient Attending Provider: Yolis Arthur Patient seen and examined in the ICU. AC Mode of vent via a Trach. No change in mental status. Obtunded. Low grade temps. Intake & Output 07/23/15 07/24/15 07/25/15 07/26/15 23:59 23:59 23:59 23:59 Intake Total 4299 490 4167 700 Output Total 8444 985 2076 400 Balance -201 14 65 300 Weight 155 lb 6.4 oz 155 lb 6.814 oz 156 lb 8.451 oz 149 lb 14.629 oz Last Vital Signs Temp Pulse Resp BP Pulse Ox 99.8 F H 106 H 16 154/85 99 07/26/15 02:00 07/26/15 06:00 07/26/15 06:00 07/26/15 06:00 07/25/15 22:00 Active Medications Acetaminophen (Tylenol Oral Solution -) 650 mg NGT Q6H PRN PRN Reason: FEVER Last Admin: 07/25/15 13:04 Dose: 650 mg Amlodipine Besylate (Norvasc -) 10 mg PO DAILY [facility] Last Admin: 07/25/15 09:09 Dose: 10 mg Chlorhexidine Gluconate (Hibiclens For Decolonization -) 1 applic TP HS [facility] Last Admin: 07/25/15 22:13 Dose: 1 applic Chlorhexidine Gluconate (Peridex -) 15 ml MM BID [facility] Last Admin: 07/25/15 22:14 Dose: 15 ml Pantoprazole Sodium 40 mg/ (Sodium Chloride) 100 mls @ 200 mls/hr IVPB BID [facility] Last Admin: 07/25/15 22:14 Dose: 200 mls/hr Insulin Aspart (Novolog Flexpen Sliding Scale -) 0 units SQ Q6HPO [facility] PRN Reason: Protocol Last Admin: 07/26/15 06:50 Dose: 6 units Insulin Detemir (Levemir Flexpen -) 14 units SQ HS [facility] Lisinopril (Prinivil -) 20 mg PO DAILY [facility] Last Admin: 07/25/15 09:09 Dose: 20 mg Metoprolol Tartrate (Lopressor Injection -) 5 mg IVPUSH Q6H PRN PRN Reason: HYPERTENSION Last Admin: 07/21/15 20:38 Dose: 5 mg Metoprolol Tartrate (Lopressor -) 75 mg PO BID [facility] Last Admin: 07/25/15 22:14 Dose: 75 mg Multivitamins (Thera-Plus -) 5 ml PO DAILY [facility] Last Admin: 07/25/15 09:09 Dose: 5 ml Ondansetron HCl (Zofran Injection -) 4 mg IVPB Q6H PRN PRN Reason: NAUSEA Vancomycin HCl (Vancomycin Oral Solution) 125 mg PO Q6HPO [facility] Last Admin: 07/26/15 06:50 Dose: 2.5 ml Gen: intubated, obtunded Heart: S1S2 Lung: decreased breath sounds at the bases Abd: soft, (+) BS Ext: (+) edema Laboratory Results - last 24 hr 07/24/15 07/25/15 07/25/15 23:03 06:50 11:18 POC Glucometer 209.17454 205.08678 221.74867 07/25/15 07/25/15 07/26/15 16:42 22:06 05:15 POC Glucometer 215.95966 224.78181 252.32913 IMP: Acute Brainstem CVA S/P Right Hemicoletomy due to Acute Lower Diverticular GI Bleed Acute Blood Loss Anemia Acute Respiratory Failure Pneumonia likely aspiration HTN DM CKD C diff Ag (+) PLAN: - For PEG - PPI - Antibiotics per ID - Enteral feeds as tolerated - DVT/GI prophylaxis - Vent Floor Dr Agosto CCTime 35"
[2015-07-26] MEDS: amLODIPine BESYLATE 10 MG TABLET (FP) PO SCH (09:30)
[2015-07-26] MEDS: METOPROLOL TARTRATE 50 MG TABLET (FP) PO SCH ×2 (09:30→22:36)
[2015-07-26] MEDS: LISINOPRIL 20 MG TABLET (FP) PO SCH (09:30)
[2015-07-26] MEDS: MULTIVITAMINS THERAPEUTIC PO SCH (09:31)
[2015-07-26] MEDS: CHLORHEXIDINE GLUCONATE 0.12% 15ML CUP MM SCH ×2 (09:31→22:37)
[2015-07-26] MEDS: PANTOPRAZOLE SODIUM 40 MG in SODIUM CHLORIDE 100 ML IVPB SCH ×2 (09:31→22:40)
[2015-07-26] MEDS: CHLORHEXIDINE GLUCONATE 4% CLEANSER FOR DECOLONIZATION TP SCH (22:29)
[2015-07-26] MEDS: ACETAMINOPHEN 650 MG/20.3 ML ORAL SOLUTION (CUPS) NGT PRN (22:30)
[2015-07-26] MEDS: INSULIN DETEMIR SQ SCH (22:34)
[2015-07-27] MEDS: INSULIN SLIDING SCALE (NOVOLOG) 1 VIAL SQ SCH ×5 (06:13→23:18)
[2015-07-27] MEDS: VANCOMYCIN 250 MG/5 ML ORAL SOLUTION PO SCH ×4 (06:13→17:41)
[2015-07-27 06:28] LABS: BASOPHIL 0.5 % (0-2.0); EOSINOPHIL 2.9 % (0-4.5); MCH 29.1 pg (25.7-33.7); MCHC 32.3 g/dl (32.0-35.9); MEAN PLT VOLUME 8.9 fl (7.5-11.1); PLATELET COUNT 182 K/MM3 (134-434); RDW 14.5 % (11.9-15.9); WHITE BLOOD COUNT 12.9 K/mm3 (4.0-10.0)
[2015-07-27 06:57] LABS: ALBUMIN 2.4 g/dl (3.4-5.0); ANION GAP 6 (8-16); CALCIUM 9.3 mg/dL (8.5-10.1); CO2 32 mmol/L (21-32); CREATININE 0.8 mg/dL (0.6-1.3); GLUCOSE,RANDOM 175 mg/dL (74-106); SGOT/AST 21 U/L (15-37); SGPT/ALT 28 U/L (12-78)
[2015-07-27 06:58] LABS: ALK PHOS 87 U/L (45-117); BILIRUBIN,TOTAL 0.4 mg/dL (0.2-1.0); TOT PROT 6.7 g/dl (6.4-8.2)
--- NOTE | 2015-07-27 08:58 | PN ---
Progress Note (short form) - Note Progress Note: Progress Note PULM/CCM Patient Name: CRUZ LEE Date of : 1940 Patient Status: Inpatient Attending Provider: Yolis Arthur Patient seen and examined in the ICU. AC Mode of vent via a Trach. No change in mental status. (+) fever noted. Intake & Output 07/24/15 07/25/15 07/26/15 07/27/15 23:59 23:59 23:59 23:59 Intake Total 664 1340 1280 400 Output Total 650 1275 1300 400 Balance 14 65 -20 0 Weight 155 lb 6.814 oz 156 lb 8.451 oz 149 lb 14.629 oz 149 lb 11.102 oz Last Vital Signs Temp Pulse Resp BP Pulse Ox 100.8 F H 93 H 16 169/75 98 07/27/15 06:00 07/27/15 08:00 07/27/15 08:00 07/27/15 08:00 07/27/15 08:00 Active Medications Acetaminophen (Tylenol Oral Solution -) 650 mg NGT Q6H PRN PRN Reason: FEVER Last Admin: 07/26/15 22:30 Dose: 650 mg Amlodipine Besylate (Norvasc -) 10 mg PO DAILY [facility] Last Admin: 07/26/15 09:30 Dose: 10 mg Chlorhexidine Gluconate (Hibiclens For Decolonization -) 1 applic TP HS [facility] Last Admin: 07/26/15 22:29 Dose: 1 applic Chlorhexidine Gluconate (Peridex -) 15 ml MM BID [facility] Last Admin: 07/26/15 22:37 Dose: 15 ml Pantoprazole Sodium 40 mg/ (Sodium Chloride) 100 mls @ 200 mls/hr IVPB BID [facility] Last Admin: 07/26/15 22:40 Dose: 200 mls/hr Insulin Aspart (Novolog Flexpen Sliding Scale -) 0 units SQ Q6HPO [facility] PRN Reason: Protocol Last Admin: 07/27/15 06:13 Dose: Not Given Insulin Detemir (Levemir Flexpen -) 14 units SQ HS [facility] Last Admin: 07/26/15 22:34 Dose: 14 units Lisinopril (Prinivil -) 20 mg PO DAILY [facility] Last Admin: 07/26/15 09:30 Dose: 20 mg Metoprolol Tartrate (Lopressor Injection -) 5 mg IVPUSH Q6H PRN PRN Reason: HYPERTENSION Last Admin: 07/21/15 20:38 Dose: 5 mg Metoprolol Tartrate (Lopressor -) 75 mg PO BID [facility] Last Admin: 07/26/15 22:36 Dose: 75 mg Multivitamins (Thera-Plus -) 5 ml PO DAILY [facility] Last Admin: 07/26/15 09:31 Dose: 5 ml Ondansetron HCl (Zofran Injection -) 4 mg IVPB Q6H PRN PRN Reason: NAUSEA Vancomycin HCl (Vancomycin Oral Solution) 125 mg PO Q6HPO [facility] Last Admin: 07/27/15 06:13 Dose: Not Given Gen: intubated, obtunded Heart: S1S2 Lung: decreased breath sounds at the bases Abd: soft, (+) BS Ext: (+) edema Laboratory Results - last 24 hr 07/26/15 07/26/15 07/26/15 12:32 17:16 22:32 WBC RBC Hgb Hct MCV MCHC RDW Plt Count MPV Neutrophils % Lymphocytes % Monocytes % Eosinophils % Basophils % Sodium Potassium Chloride Carbon Dioxide Anion Gap BUN Creatinine Creat Clearance w eGFR POC Glucometer 228.55760 249.31971 235.59180 Random Glucose Calcium Total Bilirubin AST ALT Alkaline Phosphatase Total Protein Albumin 07/27/15 07/27/15 05:05 05:49 WBC 12.9 H RBC 3.15 L Hgb 9.1 L Hct 28.3 L MCV 90.0 MCHC 32.3 RDW 14.5 Plt Count 182 MPV 8.9 D Neutrophils % 81.0 Lymphocytes % 10.6 Monocytes % 5.0 Eosinophils % 2.9 Basophils % 0.5 Sodium 148 H Potassium 3.6 Chloride 110 H Carbon Dioxide 32 Anion Gap 6 L BUN 22 H Creatinine 0.8 Creat Clearance w eGFR > 60 POC Glucometer 190.53664 Random Glucose 175 H Calcium 9.3 Total Bilirubin 0.4 AST 21 D ALT 28 D Alkaline Phosphatase 87 Total Protein 6.7 Albumin 2.4 L IMP: Acute Brainstem CVA S/P Right Hemicoletomy due to Acute Lower Diverticular GI Bleed Acute Blood Loss Anemia Acute Respiratory Failure Pneumonia likely aspiration HTN DM CKD C diff Ag (+) PLAN: - For PEG - PPI - Antibiotics per ID - Enteral feeds as tolerated - DVT/GI prophylaxis - Vent Floor Overall prognosis for meaningful recovery is grave Dr Agosto CCTime 35"
[2015-07-27] MEDS: amLODIPine BESYLATE 10 MG TABLET (FP) PO SCH (09:20)
[2015-07-27] MEDS: METOPROLOL TARTRATE 50 MG TABLET (FP) PO SCH ×2 (09:20→21:19)
[2015-07-27] MEDS: LISINOPRIL 20 MG TABLET (FP) PO SCH (09:20)
[2015-07-27] MEDS: PANTOPRAZOLE SODIUM 40 MG in SODIUM CHLORIDE 100 ML IVPB SCH ×2 (09:21→21:19)
[2015-07-27] MEDS: MULTIVITAMINS THERAPEUTIC PO SCH (09:22)
[2015-07-27] MEDS: CHLORHEXIDINE GLUCONATE 0.12% 15ML CUP MM SCH ×2 (09:38→21:19)
--- NOTE | 2015-07-27 12:52 | PN ---
Progress Note (short form) - Note Progress Note: Subjective: trached .still unconscious off sedation . no events last night Objective: Last Vital Signs Temp Pulse Resp BP Pulse Ox 100.8 F H 92 H 15 175/87 98 07/27/15 06:00 07/27/15 11:05 07/27/15 10:00 07/27/15 10:00 07/27/15 11:05 Physical Exam: NAD, trached .deos not open his eyes to sternal rub CV: RRR, no MRG lungs:CTAB anteriorly ext: no edema on legs. hands edema , no erythema abd: soft, NT, ND , nl BS neuro : unconscious,no facial droop , Labs: Laboratory Results - last 24 hr 07/26/15 07/26/15 07/26/15 12:32 17:16 22:32 WBC RBC Hgb Hct MCV MCHC RDW Plt Count MPV Neutrophils % Lymphocytes % Monocytes % Eosinophils % Basophils % Sodium Potassium Chloride Carbon Dioxide Anion Gap BUN Creatinine Creat Clearance w eGFR POC Glucometer 228.39992 249.42188 235.86433 Random Glucose Calcium Total Bilirubin AST ALT Alkaline Phosphatase Total Protein Albumin 07/27/15 07/27/15 05:05 05:49 WBC 12.9 H RBC 3.15 L Hgb 9.1 L Hct 28.3 L MCV 90.0 MCHC 32.3 RDW 14.5 Plt Count 182 MPV 8.9 D Neutrophils % 81.0 Lymphocytes % 10.6 Monocytes % 5.0 Eosinophils % 2.9 Basophils % 0.5 Sodium 148 H Potassium 3.6 Chloride 110 H Carbon Dioxide 32 Anion Gap 6 L BUN 22 H Creatinine 0.8 Creat Clearance w eGFR > 60 POC Glucometer 190.70285 Random Glucose 175 H Calcium 9.3 Total Bilirubin 0.4 AST 21 D ALT 28 D Alkaline Phosphatase 87 Total Protein 6.7 Albumin 2.4 L Assessment/Plan: 5 yo M with PMH HTN, DM, inguinal hernia a/w BRBPR and melena with multiple syncopal episodes. Dx with persistent diverticular bleed with R hemicolectomy, course complicated with CVA now in the ICU unresponsive and anoxic brain injury had tracheostomy on 07/23. 1- GI bleed, s/p colonoscopy and R hemicolectomy. now stable . H&H stabl e 2- Anoxic brain injury and CVA, now off sedation. s/p Trach 07/23. EGD was refused by daughter yesterday , today she is agreeable . plan fro EGD this afternoon will resume feeds as recommended by GI 3- continued fever . unclear reason , being treated for c diff. repeatedly cxray with no PNA . bronch with nl stephanie . check UA and U cx. UA will have pyuria as from [place] but will wait for cx. will d/w ID 4- uncontrolled HTN: cont norvasc and increase metoprolol. 5- hypernatremia : will increase free water with TF when TF are resumed 6- DM : levemir was incfreased to 14 u HS yesterday . cont SSI . BS improved 7- C diff colitis : day 09/11 on po [facility] critical care time spent 35 min transfer to floor will call daughter . DNR
--- NOTE | 2015-07-27 15:17 | PN ---
Progress Note (short form) - Note Progress Note: pt's daughter Craole will need give consent for anesthesia. PEG cancelled again. Please recall as necessary.
--- NOTE | 2015-07-27 16:40 | PN ---
Progress Note (short form) - Note Progress Note: Asked to followup for recurrent fever continues to have loose stools and has rectal tube remains unresponsive s/p percutaneous trach 07/23 fevers since 07/24 po vanco since 07/17 Vital Signs Period Temp Pulse Resp BP Sys/Santiago Pulse Ox Last 24 Hr 99.9 F-101.8 F 76-103 12- 141-175/71-87 98-98 ngt/castellano cor-rrr lungs decreased bs at bases abd no distention, well healed midline scar rectal tube stage two sacral ulcer no erythema, no purulence stage 2 ulcer right ear ext no edema CBC, BMP 07/27/15 05:05 07/27/15 05:05 a/p fevers in the 75 year old man hospital day #30 concerns would include pneumonia, catheter related UTI and 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
[2015-07-27 17:56] LABS: URINE APPEARANCE CLEAR; URINE BILIRUBIN NEGATIVE (NEGATIVE); URINE COLOR YELLOW; URINE GLUCOSE (UA) NEGATIVE (NEGATIVE); URINE KETONE NEGATIVE (NEGATIVE); URINE LEUK ESTERASE NEGATIVE (NEGATIVE); URINE NITRITE NEGATIVE (NEGATIVE); URINE PROTEIN NEGATIVE (NEGATIVE); URINE UROBILINOGEN NEGATIVE E.U./dl (0.2-1.0)
[2015-07-27 18:01] LABS: URINE BLOOD 2+ (NEGATIVE)
[2015-07-27 18:10] LABS: URINE MUCUS RARE; URINE RBC 180 /hpf (0-3); URINE WBC 5 /hpf (3-5)
[2015-07-27] MEDS: CHLORHEXIDINE GLUCONATE 4% CLEANSER FOR DECOLONIZATION TP SCH (21:20)
[2015-07-27] MEDS: INSULIN DETEMIR SQ SCH (23:18)
[2015-07-27] MEDS: ACETAMINOPHEN 650 MG/20.3 ML ORAL SOLUTION (CUPS) NGT PRN (23:19)
[2015-07-28] MEDS: VANCOMYCIN 250 MG/5 ML ORAL SOLUTION PO SCH ×5 (00:21→23:22)
[2015-07-28] MEDS: INSULIN SLIDING SCALE (NOVOLOG) 1 VIAL SQ SCH ×4 (06:05→23:21)
[2015-07-28 06:26] LABS: MCH 28.7 pg (25.7-33.7); MCHC 31.7 g/dl (32.0-35.9); MEAN CELL VOLUME 90.5 fl (80-96); PLATELET COUNT 190 K/MM3 (134-434); RDW 14.1 % (11.9-15.9); WHITE BLOOD COUNT 13.6 K/mm3 (4.0-10.0)
[2015-07-28 06:53] LABS: ALBUMIN 2.5 g/dl (3.4-5.0); ALK PHOS 89 U/L (45-117); ANION GAP 5 (8-16); BILIRUBIN,TOTAL 0.3 mg/dL (0.2-1.0); CALCIUM 9.3 mg/dL (8.5-10.1); CO2 32 mmol/L (21-32); CREATININE 0.8 mg/dL (0.6-1.3); GLUCOSE,RANDOM 199 mg/dL (74-106); SGOT/AST 24 U/L (15-37); SGPT/ALT 29 U/L (12-78); TOT PROT 6.8 g/dl (6.4-8.2)
--- NOTE | 2015-07-28 09:24 | PN ---
Progress Note (short form) - Note Progress Note: PULMONARY/CCM Pt seen and examined in the ICU. Remains intubated, poorly responsive. Remains febrile. Last Vital Signs Temp Pulse Resp BP Pulse Ox 99.0 F 80 15 153/69 98 07/28/15 05:54 07/28/15 05:54 07/28/15 07:27 07/28/15 05:54 07/27/15 21:09 Intake & Output 07/25/15 07/26/15 07/27/15 07/28/15 23:59 23:59 23:59 23:59 Intake Total 1340 1280 800 550 Output Total 1275 1300 1370 500 Balance 65 -20 -570 50 Weight 156 lb 8.451 oz 149 lb 14.629 oz 149 lb 11.102 oz 148 lb 2.41 oz Gen: intubated, poorly responsive Heart: RRR Lung: decreased breath sounds at the bases Abd: soft, nontender, dressing dry Ext: + edema CBC, BMP 07/28/15 05:10 07/28/15 05:10 Active Medications Acetaminophen (Tylenol Oral Solution -) 650 mg NGT Q6H PRN PRN Reason: FEVER Last Admin: 07/27/15 23:19 Dose: 650 mg Amlodipine Besylate (Norvasc -) 10 mg PO DAILY [facility] Last Admin: 07/27/15 09:20 Dose: 10 mg Chlorhexidine Gluconate (Hibiclens For Decolonization -) 1 applic TP HS [facility] Last Admin: 07/27/15 21:20 Dose: 1 applic Chlorhexidine Gluconate (Peridex -) 15 ml MM BID [facility] Last Admin: 07/27/15 21:19 Dose: 15 ml Pantoprazole Sodium 40 mg/ (Sodium Chloride) 100 mls @ 200 mls/hr IVPB BID [facility] Last Admin: 07/27/15 21:19 Dose: 200 mls/hr Insulin Aspart (Novolog Flexpen Sliding Scale -) 0 units SQ Q6HPO [facility] PRN Reason: Protocol Last Admin: 07/28/15 06:05 Dose: 4 units Insulin Detemir (Levemir Flexpen -) 14 units SQ HS [facility] Last Admin: 07/27/15 23:18 Dose: 14 units Lisinopril (Prinivil -) 20 mg PO DAILY [facility] Last Admin: 07/27/15 09:20 Dose: 20 mg Metoprolol Tartrate (Lopressor Injection -) 5 mg IVPUSH Q6H PRN PRN Reason: HYPERTENSION Last Admin: 07/21/15 20:38 Dose: 5 mg Metoprolol Tartrate (Lopressor -) 100 mg PO BID [facility] Last Admin: 07/27/15 21:19 Dose: 100 mg Multivitamins (Thera-Plus -) 5 ml PO DAILY [facility] Last Admin: 07/27/15 09:22 Dose: Not Given Ondansetron HCl (Zofran Injection -) 4 mg IVPB Q6H PRN PRN Reason: NAUSEA Vancomycin HCl (Vancomycin Oral Solution) 125 mg PO Q6HPO [facility] Last Admin: 07/28/15 06:05 Dose: 2.5 ml A/P Acute Respiratory Failure s/p Tracheostomy Acute CVA/Anoxic Brain Injury Acute Lower Diverticular GI Bleed Acute Blood Loss Anemia s/p Pneumonia HTN DM CKD + C Diff Ag Fever - antibiotics per ID - f/u pending cultures - CT sinuses to r/o sinusitis - enteral feeds - increase free water - DVT/GI prophylaxis
[2015-07-28] MEDS: METOPROLOL TARTRATE 50 MG TABLET (FP) PO SCH ×2 (09:46→22:42)
[2015-07-28] MEDS: MULTIVITAMINS THERAPEUTIC PO SCH (09:46)
[2015-07-28] MEDS: CHLORHEXIDINE GLUCONATE 0.12% 15ML CUP MM SCH ×2 (09:46→22:42)
[2015-07-28] MEDS: amLODIPine BESYLATE 10 MG TABLET (FP) PO SCH (09:47)
[2015-07-28] MEDS: LISINOPRIL 20 MG TABLET (FP) PO SCH (09:47)
[2015-07-28] MEDS: PANTOPRAZOLE SODIUM 40 MG in SODIUM CHLORIDE 100 ML IVPB SCH ×2 (09:47→22:42)
[2015-07-28] MEDS: ACETAMINOPHEN 650 MG/20.3 ML ORAL SOLUTION (CUPS) NGT PRN (09:48)
--- NOTE | 2015-07-28 10:44 | PN ---
Progress Note (short form) - Note Progress Note: Subjective: trached .still unconscious off sedation . no events last night Objective: Last Vital Signs Temp Pulse Resp BP Pulse Ox 100.4 F H 108 H 15 151/77 98 07/28/15 10:00 07/28/15 10:00 07/28/15 10:00 07/28/15 10:00 07/27/15 21:09 Physical Exam: NAD, trached .does not open his eyes to sternal rub CV: RRR, no MRG lungs:CTAB anteriorly ext: no edema on legs. hands edema , no erythema abd: soft, NT, ND , nl BS neuro : unconscious,no facial droop , Labs: Laboratory Results - last 24 hr 07/27/15 07/27/15 07/27/15 11:24 15:55 17:29 WBC RBC Hgb Hct MCV MCHC RDW Plt Count MPV Sodium Potassium Chloride Carbon Dioxide Anion Gap BUN Creatinine Creat Clearance w eGFR POC Glucometer 169.93599 172.76230 Random Glucose Calcium Total Bilirubin AST ALT Alkaline Phosphatase Total Protein Albumin Urine Color Yellow Urine Appearance Clear Urine pH 6.0 Ur Specific [place] 1.020 Urine Protein Negative Urine Glucose (UA) Negative Urine Ketones Negative Urine Blood 2+ H Urine Nitrite Negative Urine Bilirubin Negative Urine Urobilinogen Negative Ur Leukocyte Esterase Negative Urine RBC 180 Urine WBC 5 Ur Epithelial Cells Rare Urine Mucus Rare 07/27/15 07/28/15 07/28/15 23:15 05:10 06:03 WBC 13.6 H RBC 3.20 L Hgb 9.2 L Hct 29.0 L MCV 90.5 MCHC 31.7 L RDW 14.1 Plt Count 190 MPV 9.0 Sodium 149 H Potassium 3.6 Chloride 112 H Carbon Dioxide 32 Anion Gap 5 L BUN 22 H Creatinine 0.8 Creat Clearance w eGFR > 60 POC Glucometer 226.90550 214.37722 Random Glucose 199 H Calcium 9.3 Total Bilirubin 0.3 D AST 24 ALT 29 Alkaline Phosphatase 89 Total Protein 6.8 Albumin 2.5 L Urine Color Urine Appearance Urine pH Ur Specific [place] Urine Protein Urine Glucose (UA) Urine Ketones Urine Blood Urine Nitrite Urine Bilirubin Urine Urobilinogen Ur Leukocyte Esterase Urine RBC Urine WBC Ur Epithelial Cells Urine Mucus Assessment/Plan: 5 yo M with PMH HTN, DM, inguinal hernia a/w BRBPR and melena with multiple syncopal episodes. Dx with persistent diverticular bleed with R hemicolectomy, course complicated with CVA now in the ICU unresponsive and anoxic brain injury had tracheostomy on 07/23. 1- GI bleed, s/p colonoscopy and R hemicolectomy. H&H stable 2- Anoxic brain injury and CVA, now off sedation. s/p Trach 07/23. EGD was declined by daughter again yesterday. feeds were resumed yesterday will d/w daughter the option of placing a PEG Via VIR with topical anesthesia as her main concern is [place] 3- continued fever . unclear reason , being treated for c diff. repeatedly cxray with no PNA . bronch with nl stephanie . UA reviewed. and U cx pending CT of sinuses is pending C diff PCR pending cont po vanco 4- uncontrolled HTN: better , cont norvasc and metoprolol. 5- hypernatremia : free water was increased last night with TF. free waater flushed added . will monitor 6- DM : levemir 14 units HS . cont SSI . 7- C diff colitis : day 10/11 on po vanco critical care time spent 35 min transfer to floor pending message left fro daughter to call back DNR
[2015-07-28] MEDS: AMINO ACIDS/PROTEIN HYDROLYS SUGAR-FREE 30 ML PACKET PO SCH (11:37)
[2015-07-28] MEDS: CHLORHEXIDINE GLUCONATE 4% CLEANSER FOR DECOLONIZATION TP SCH (22:40)
[2015-07-29] MEDS: INSULIN SLIDING SCALE (NOVOLOG) 1 VIAL SQ SCH ×4 (07:04→17:16)
[2015-07-29] MEDS: VANCOMYCIN 250 MG/5 ML ORAL SOLUTION PO SCH ×3 (07:05→17:16)
[2015-07-29 08:19] LABS: BASOPHIL 0.6 % (0-2.0); EOSINOPHIL 2.1 % (0-4.5); MCH 28.9 pg (25.7-33.7); MCHC 32.2 g/dl (32.0-35.9); MEAN CELL VOLUME 89.8 fl (80-96); MEAN PLT VOLUME 8.5 fl (7.5-11.1); NEUTROPHILS 80.7 % (42.8-82.8); PLATELET COUNT 201 K/MM3 (134-434); RDW 14.4 % (11.9-15.9); WHITE BLOOD COUNT 15.4 K/mm3 (4.0-10.0)
[2015-07-29 08:51] LABS: ALBUMIN 2.6 g/dl (3.4-5.0); ANION GAP 4 (8-16); BILIRUBIN,TOTAL 0.3 mg/dL (0.2-1.0); CALCIUM 9.5 mg/dL (8.5-10.1); CO2 33 mmol/L (21-32); CREATININE 0.9 mg/dL (0.6-1.3); GLUCOSE,RANDOM 261 mg/dL (74-106); MAGNESIUM 2.2 mg/dL (1.8-2.4); PHOSPHOROUS 3.5 mg/dL (2.5-4.9); SGOT/AST 25 U/L (15-37)
[2015-07-29 08:54] LABS: ALK PHOS 104 U/L (45-117); SGPT/ALT 36 U/L (12-78)
[2015-07-29] MEDS: LISINOPRIL 20 MG TABLET (FP) PO SCH (09:48)
[2015-07-29] MEDS: CHLORHEXIDINE GLUCONATE 0.12% 15ML CUP MM SCH ×2 (09:49→21:27)
[2015-07-29] MEDS: METOPROLOL TARTRATE 50 MG TABLET (FP) PO SCH ×2 (09:49→21:26)
[2015-07-29] MEDS: amLODIPine BESYLATE 10 MG TABLET (FP) PO SCH (09:49)
[2015-07-29] MEDS: AMINO ACIDS/PROTEIN HYDROLYS SUGAR-FREE 30 ML PACKET PO SCH (09:50)
[2015-07-29] MEDS: MULTIVITAMINS THERAPEUTIC PO SCH (09:51)
[2015-07-29 10:37] LABS: INR 1.3 (0.86-1.14); PROTHROMBIN TIME (PATIENT) 13.8 SEC (9.5-11.7)
[2015-07-29] MEDS: PANTOPRAZOLE SODIUM 40 MG in SODIUM CHLORIDE 100 ML IVPB SCH ×2 (12:07→21:27)
--- NOTE | 2015-07-29 14:15 | PN ---
Progress Note (short form) - Note Progress Note: PULMONARY/CCM Pt seen and examined in the ICU. Remains intubated, poorly responsive. Fever curve trending down. Last Vital Signs Temp Pulse Resp BP Pulse Ox 98.7 F 82 18 139/92 96 07/29/15 07:29 07/29/15 10:00 07/29/15 10:00 07/29/15 07:29 07/29/15 10:00 Gen: intubated, poorly responsive Heart: RRR Lung: decreased breath sounds at the bases Abd: soft, nontender, dressing dry Ext: + edema CBC, BMP 07/29/15 07:00 07/29/15 07:00 Active Medications Acetaminophen (Tylenol Oral Solution -) 650 mg NGT Q6H PRN PRN Reason: FEVER Amino Acids (Prostat Sugar-Free Packet -) 30 ml PO DAILY [facility] Last Admin: 07/29/15 09:50 Dose: 30 ml Amlodipine Besylate (Norvasc -) 10 mg PO DAILY [facility] Last Admin: 07/29/15 09:49 Dose: 10 mg Chlorhexidine Gluconate (Hibiclens For Decolonization -) 1 applic TP HS [facility] Last Admin: 07/28/15 22:40 Dose: Not Given Chlorhexidine Gluconate (Peridex -) 15 ml MM BID [facility] Last Admin: 07/29/15 09:49 Dose: 15 ml Pantoprazole Sodium 40 mg/ (Sodium Chloride) 100 mls @ 200 mls/hr IVPB BID [facility] Last Admin: 07/29/15 12:07 Dose: 200 mls/hr Insulin Aspart (Novolog Flexpen Sliding Scale -) 0 units SQ Q6HPO [facility] PRN Reason: Protocol Last Admin: 07/29/15 12:32 Dose: 2 units Insulin Detemir (Levemir Flexpen -) 16 units SQ HS [facility] Lisinopril (Prinivil -) 20 mg PO DAILY [facility] Last Admin: 07/29/15 09:48 Dose: 20 mg Metoprolol Tartrate (Lopressor -) 100 mg PO BID [facility] Last Admin: 07/29/15 09:49 Dose: 100 mg Metoprolol Tartrate (Lopressor Injection -) 5 mg IVPB Q6H PRN PRN Reason: HYPERTENSION Multivitamins (Thera-Plus -) 5 ml PO DAILY [facility] Last Admin: 07/29/15 09:51 Dose: 5 ml Ondansetron HCl (Zofran Injection -) 4 mg IVPB Q6H PRN PRN Reason: NAUSEA Vancomycin HCl (Vancomycin Oral Solution) 125 mg PO Q6HPO [facility] Last Admin: 07/29/15 12:08 Dose: 125 mg A/P Acute Respiratory Failure s/p Tracheostomy Acute CVA/Anoxic Brain Injury Acute Lower Diverticular GI Bleed Acute Blood Loss Anemia s/p Pneumonia HTN DM CKD + C Diff Ag Fever - antibiotics per ID - f/u pending cultures - enteral feeds - increase free water - DVT/GI prophylaxis - continue discussions with family regarding goals of care
--- NOTE | 2015-07-29 15:31 | PN ---
Progress Note, Physician History of Present Illness: Poorly responsive Low grade temp Still with loose stool; has rectal tube For feeding gastrostomy - Current Medication List Current Medications: Active Medications Acetaminophen (Tylenol Oral Solution -) 650 mg NGT Q6H PRN PRN Reason: FEVER Amino Acids (Prostat Sugar-Free Packet -) 30 ml PO DAILY [facility] Last Admin: 07/29/15 09:50 Dose: 30 ml Amlodipine Besylate (Norvasc -) 10 mg PO DAILY [facility] Last Admin: 07/29/15 09:49 Dose: 10 mg Chlorhexidine Gluconate (Hibiclens For Decolonization -) 1 applic TP HS [facility] Last Admin: 07/28/15 22:40 Dose: Not Given Chlorhexidine Gluconate (Peridex -) 15 ml MM BID [facility] Last Admin: 07/29/15 09:49 Dose: 15 ml Pantoprazole Sodium 40 mg/ (Sodium Chloride) 100 mls @ 200 mls/hr IVPB BID [facility] Last Admin: 07/29/15 12:07 Dose: 200 mls/hr Insulin Aspart (Novolog Flexpen Sliding Scale -) 0 units SQ Q6HPO [facility] PRN Reason: Protocol Last Admin: 07/29/15 12:32 Dose: 2 units Insulin Detemir (Levemir Flexpen -) 16 units SQ [facility] Lisinopril (Prinivil -) 20 mg PO DAILY [facility] Last Admin: 07/29/15 09:48 Dose: 20 mg Metoprolol Tartrate (Lopressor -) 100 mg PO BID [facility] Last Admin: 07/29/15 09:49 Dose: 100 mg Metoprolol Tartrate (Lopressor Injection -) 5 mg IVPB Q6H PRN PRN Reason: HYPERTENSION Multivitamins (Thera-Plus -) 5 ml PO DAILY [facility] Last Admin: 07/29/15 09:51 Dose: 5 ml Ondansetron HCl (Zofran Injection -) 4 mg IVPB Q6H PRN PRN Reason: NAUSEA Vancomycin HCl (Vancomycin Oral Solution) 125 mg PO Q6HPO [facility] Last Admin: 07/29/15 12:08 Dose: 125 mg - Objective Vital Signs: Vital Signs Temperature 98.7 F 07/29/15 07:29 Pulse Rate 100 H 07/29/15 15:00 Respiratory Rate 15 07/29/15 15:00 Blood Pressure 130/80 07/29/15 15:00 O2 Sat by Pulse Oximetry (%) 96 07/29/15 10:00 Constitutional: Yes: No Distress, Other (poorly responsive) Cardiovascular: Yes: Regular Rate and Rhythm, S1, S2 Respiratory: Yes: Mechanically Ventilated Gastrointestinal: Yes: Normal Bowel Sounds, Soft. No: Tenderness Labs: CBC, BMP 07/29/15 07:00 07/29/15 07:00 INR, PTT INR 1.30 (0.86-1.14) H 07/29/15 10:00 Assessment/Plan s/p Probable aspiration pneumonia Respiratory failure s/p Lower GI bleed Low grade fever Leukocytosis Azotemia Blood c/s no growth Continue vancomycin po Ventilatory support
--- NOTE | 2015-07-29 19:32 | PN ---
Progress Note (short form) - Note Progress Note: Subjective: trached .still unconscious off sedation . no events last night Objective: Last Vital Signs Temp Pulse Resp BP Pulse Ox 99.9 F H 112 H 17 138/80 98 07/29/15 17:07 07/29/15 17:07 07/29/15 17:07 07/29/15 17:07 07/29/15 10:00 Physical Exam: NAD, trached .does not open his eyes to sternal rub . positive corneal reflexes CV: RRR, no MRG lungs:CTAB anteriorly ext: no edema on legs. hands edema , no erythema abd: soft, NT, ND , nl BS neuro : unconscious,no facial droop , Labs: Laboratory Results - last 24 hr 06/26/15 07/28/15 07/29/15 21:50 23:18 05:34 WBC RBC Hgb Hct MCV MCHC RDW Plt Count MPV Neutrophils % Lymphocytes % Monocytes % Eosinophils % Basophils % INR Sodium Potassium Chloride Carbon Dioxide Anion Gap BUN Creatinine Creat Clearance w eGFR POC Glucometer 190 280 Random Glucose Calcium Phosphorus Magnesium Total Bilirubin AST ALT Alkaline Phosphatase Total Protein Albumin Crossmatch See Detail Crossmatch IS Only See Detail 07/29/15 07/29/15 07/29/15 07:00 10:00 12:10 WBC 15.4 H RBC 3.39 L Hgb 9.8 L Hct 30.4 L MCV 89.8 MCHC 32.2 RDW 14.4 Plt Count 201 MPV 8.5 Neutrophils % 80.7 Lymphocytes % 12.3 Monocytes % 4.3 Eosinophils % 2.1 Basophils % 0.6 INR 1.30 H Sodium 150 H Potassium 3.9 Chloride 113 H Carbon Dioxide 33 H Anion Gap 4 L BUN 26 H Creatinine 0.9 Creat Clearance w eGFR > 60 POC Glucometer 233 Random Glucose 261 H D Calcium 9.5 Phosphorus 3.5 Magnesium 2.2 Total Bilirubin 0.3 AST 25 ALT 36 D Alkaline Phosphatase 104 Total Protein 7.0 Albumin 2.6 L Crossmatch Crossmatch IS Only 07/29/15 17:03 WBC RBC Hgb Hct MCV MCHC RDW Plt Count MPV Neutrophils % Lymphocytes % Monocytes % Eosinophils % Basophils % INR Sodium Potassium Chloride Carbon Dioxide Anion Gap BUN Creatinine Creat Clearance w eGFR POC Glucometer 219 Random Glucose Calcium Phosphorus Magnesium Total Bilirubin AST ALT Alkaline Phosphatase Total Protein Albumin Crossmatch Crossmatch IS Only Microbiology 07/27/15 15:55 Urine Culture - Final Urine - Urine Schwartz NO GROWTH OBTAINED 07/27/15 19:00 Blood Culture - Preliminary Blood - Peripheral Venous NO GROWTH OBTAINED AFTER 24 HOURS, INCUBATION TO CONTINUE FOR 4 DAYS. 07/27/15 19:00 Blood Culture - Preliminary Blood - Peripheral Venous NO GROWTH OBTAINED AFTER 24 HOURS, INCUBATION TO CONTINUE FOR 4 DAYS. Assessment/Plan: 5 yo M with PMH HTN, DM, inguinal hernia a/w BRBPR and melena with multiple syncopal episodes. Dx with persistent diverticular bleed with R hemicolectomy, course complicated with CVA now in the ICU unresponsive and anoxic brain injury had tracheostomy on 07/23. 1- GI bleed, s/p colonoscopy and R hemicolectomy. H&H stable 2- Anoxic brain injury and CVA, now off sedation. s/p Trach 07/23. EGD was declined by daughter . d/w daughter the risk of infection, and ulcers/septal perforation with NG tube , and discussed with her the option of IR placement of PEG with risk of bleed, perforation and infection . she agreed to the procedure . spoke with Dr. Duke , plan for PEG in am . give barium today , resume feeds , NPO after mid night 3- continued fever . unclear reason , being treated for c diff. repeatedly cxray with no PNA . bronch with nl stephanie . U cx no growth CT of sinuses with no infection C diff PCR pending cont po vanco 4- uncontrolled HTN: better , cont norvasc and metoprolol. 5- hypernatremia : cont continuous water with TF and free water flushes 6- DM : levemir 14 units HS . cont SSI . 7- C diff colitis : day 13 on po vanco , will cont pending ID recs and PCR DNR
[2015-07-29] MEDS: CHLORHEXIDINE GLUCONATE 4% CLEANSER FOR DECOLONIZATION TP SCH (21:27)
[2015-07-29] MEDS: INSULIN DETEMIR SQ SCH (21:27)
[2015-07-30] MEDS: INSULIN SLIDING SCALE (NOVOLOG) 1 VIAL SQ SCH ×4 (01:02→18:58)
[2015-07-30] MEDS: VANCOMYCIN 250 MG/5 ML ORAL SOLUTION PO SCH ×3 (01:03→17:32)
[2015-07-30 07:17] LABS: BASOPHIL 0.5 % (0-2.0); EOSINOPHIL 1.5 % (0-4.5); MCH 29.2 pg (25.7-33.7); MCHC 32.5 g/dl (32.0-35.9); MEAN CELL VOLUME 89.8 fl (80-96); MEAN PLT VOLUME 8.8 fl (7.5-11.1); NEUTROPHILS 81.2 % (42.8-82.8); PLATELET COUNT 180 K/MM3 (134-434); RDW 14.3 % (11.9-15.9); WHITE BLOOD COUNT 15.5 K/mm3 (4.0-10.0)
--- NOTE | 2015-07-30 13:13 | PN ---
Progress Note, Physician Chief Complaint: PULMONARY POORLY RESPONSIVE ON VENT SUPPORT AC MODE - Current Medication List Current Medications: Active Medications Acetaminophen (Tylenol Oral Solution -) 650 mg NGT Q6H PRN PRN Reason: FEVER Amino Acids (Prostat Sugar-Free Packet -) 30 ml PO DAILY [facility] Last Admin: 07/29/15 09:50 Dose: 30 ml Amlodipine Besylate (Norvasc -) 10 mg PO DAILY [facility] Last Admin: 07/29/15 09:49 Dose: 10 mg Chlorhexidine Gluconate (Peridex -) 15 ml MM BID [facility] Last Admin: 07/29/15 21:27 Dose: 15 ml Glucagon (Glucagon -) 1 mg IVPUSH ONCE ONE Stop: 07/30/15 11:53 Last Admin: 07/30/15 11:52 Dose: 1 mg Pantoprazole Sodium 40 mg/ (Sodium Chloride) 100 mls @ 200 mls/hr IVPB BID [facility] Last Admin: 07/29/15 21:27 Dose: 200 mls/hr Insulin Aspart (Novolog Flexpen Sliding Scale -) 0 units SQ Q6HPO [facility] PRN Reason: Protocol Last Admin: 07/30/15 07:32 Dose: Not Given Insulin Detemir (Levemir Flexpen -) 16 units SQ HS [facility] Last Admin: 07/29/15 21:27 Dose: 16 units Lisinopril (Prinivil -) 20 mg PO DAILY [facility] Last Admin: 07/29/15 09:48 Dose: 20 mg Metoprolol Tartrate (Lopressor -) 100 mg PO BID [facility] Last Admin: 07/29/15 21:26 Dose: 100 mg Metoprolol Tartrate (Lopressor Injection -) 5 mg IVPB Q6H PRN PRN Reason: HYPERTENSION Multivitamins (Thera-Plus -) 5 ml PO DAILY [facility] Last Admin: 07/29/15 09:51 Dose: 5 ml Ondansetron HCl (Zofran Injection -) 4 mg IVPB Q6H PRN PRN Reason: NAUSEA Vancomycin HCl (Vancomycin Oral Solution) 125 mg PO Q6HPO [facility] Last Admin: 07/30/15 07:32 Dose: Not Given - Objective Vital Signs: Vital Signs Temperature 101.1 F H 07/30/15 09:15 Pulse Rate 98 H 07/30/15 12:54 Respiratory Rate 14 07/30/15 12:09 Blood Pressure 132/80 07/30/15 12:09 O2 Sat by Pulse Oximetry (%) 100 07/30/15 12:54 Constitutional: Yes: Thin, Other (POORLY RESPONSIVE) Eyes: Yes: WNL HENT: Yes: WNL Neck: Yes: Supple (TRACH) Cardiovascular: Yes: Regular Rate and Rhythm, S1, S2 Respiratory: Yes: Rhonchi (FEW SCATTERED RHONCHI) Gastrointestinal: Yes: Normal Bowel Sounds, Soft Extremities: Yes: WNL Edema: No Labs: CBC 07/30/15 06:20 Problem List - Problems (1) Anoxic brain damage Code: G93.1 (2) Lower GI bleed Code: K92.2 (3) 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 (4) Respiratory failure Code: J96.90 Qualifiers: Chronicity: acute (5) Fever Code: R50.9 (6) CVA (cerebral vascular accident) Code: I63.9 Qualifiers: CVA mechanism: unspecified Qualifier Code: (I63.9) Cerebral infarction , unspecified Assessment/Plan A/P Acute Respiratory Failure s/p Tracheostomy Acute CVA/Anoxic Brain Injury Acute Lower Diverticular GI Bleed Acute Blood Loss Anemia s/p Pneumonia HTN DM CKD + C Diff Ag Fever - continue vent support on ac mode - enteral feeds - DVT/GI prophylaxis DR HENRY
[2015-07-30] MEDS: PANTOPRAZOLE SODIUM 40 MG in SODIUM CHLORIDE 100 ML IVPB SCH ×2 (15:00→22:55)
[2015-07-30] MEDS: amLODIPine BESYLATE 10 MG TABLET (FP) PO SCH (17:30)
[2015-07-30] MEDS: METOPROLOL TARTRATE 50 MG TABLET (FP) PO SCH ×2 (17:30→22:28)
[2015-07-30] MEDS: AMINO ACIDS/PROTEIN HYDROLYS SUGAR-FREE 30 ML PACKET PO SCH (17:31)
[2015-07-30] MEDS: LISINOPRIL 20 MG TABLET (FP) PO SCH (17:31)
[2015-07-30] MEDS: MULTIVITAMINS THERAPEUTIC PO SCH (17:32)
--- NOTE | 2015-07-30 17:59 | PN ---
Progress Note (short form) - Note Progress Note: Subjective: trached .still unconscious off sedation . no events last night Objective: Last Vital Signs Temp Pulse Resp BP Pulse Ox 97.6 F 92 H 16 126/70 100 07/30/15 14:14 07/30/15 14:14 07/30/15 14:14 07/30/15 14:14 07/30/15 12:54 Physical Exam: NAD, trached .does not open his eyes to sternal rub . positive corneal reflexes CV: RRR, no MRG lungs:CTAB anteriorly ext: no edema on legs. hands edema improved , no erythema abd: soft, NT, ND , nl BS neuro : unconscious,no facial droop , Labs: Laboratory Results - last 24 hr 07/29/15 07/30/15 07/30/15 21:20 05:44 06:20 WBC 15.5 H RBC 3.20 L Hgb 9.3 L Hct 28.7 L MCV 89.8 MCHC 32.5 RDW 14.3 Plt Count 180 MPV 8.8 Neutrophils % 81.2 Lymphocytes % 11.5 Monocytes % 5.3 Eosinophils % 1.5 Basophils % 0.5 POC Glucometer 214 202 07/30/15 07/30/15 14:22 17:05 WBC RBC Hgb Hct MCV MCHC RDW Plt Count MPV Neutrophils % Lymphocytes % Monocytes % Eosinophils % Basophils % POC Glucometer 220 231 Assessment/Plan: 5 yo M with PMH HTN, DM, inguinal hernia a/w BRBPR and melena with multiple syncopal episodes. Dx with persistent diverticular bleed with R hemicolectomy, course complicated with CVA now in the ICU unresponsive and anoxic brain injury had tracheostomy on 07/23. 1- GI bleed, s/p colonoscopy and R hemicolectomy. H&H stable 2- Anoxic brain injury and CVA, now off sedation. s/p Trach 07/23. PEG through IR this am . keep NPO til am then xray in am . . will start IVF as will be NPO and hypernatremic ( 1/2 NS ) 3- continued fever . unclear reason , being treated for c diff. repeatedly cxray with no PNA . bronch with nl stephanie . U cx no growth CT of sinuses with no infection C diff PCR pending cont po vanco now will repeat blood cx 4- uncontrolled HTN: better , cont norvasc and metoprolol. did not get any meds this am as NPO, BP OK. will add HZN PRN q 6 h fro BP > 165 /100 5- hypernatremia : due to free water deficit . cstart IVF 1/2 NS 6- DM : levemir 14 units HS . cont SSI . kiko BS 7- C diff colitis : day 13 on po vanco , will cont pending ID recs and PCR 8- nutrition : now NPO . but tomorrow if PEg to be used. resume Glucerna 1.5 at goal 50 cc./hr and 24 cc of continuous water. as well as TID free water through PEg ( ordered ) DNR daughter updated yesterday . will start d/c planning on Sunday
[2015-07-30] MEDS: SODIUM CHLORIDE 0.45% 1,000 ML IV SCH (18:56)
[2015-07-30] MEDS: CHLORHEXIDINE GLUCONATE 0.12% 15ML CUP MM SCH ×2 (18:57→22:55)
[2015-07-30] MEDS: INSULIN DETEMIR SQ SCH (22:50)
[2015-07-31] MEDS: VANCOMYCIN 250 MG/5 ML ORAL SOLUTION PO SCH ×3 (00:20→11:23)
[2015-07-31] MEDS: INSULIN SLIDING SCALE (NOVOLOG) 1 VIAL SQ SCH ×5 (00:23→23:15)
[2015-07-31] MEDS: SODIUM CHLORIDE 0.45% 1,000 ML IV SCH (05:41)
--- NOTE | 2015-07-31 07:21 | PN ---
Progress Note (short form) - Note Progress Note: Pt seen and examined. Pt s/p PEG placement. unresponsive Current Medications Generic Name Dose Route Start Last Admin Trade Name Freq PRN Reason Stop Dose Admin Acetaminophen 650 mg 07/28/15 19:09 Tylenol Oral Solution - NGT Q6H PRN FEVER Amino Acids 30 ml 07/28/15 11:00 07/30/15 17:31 Prostat Sugar-Free Packet - PO Not Given DAILY [facility] Amlodipine Besylate 10 mg 07/29/15 10:00 07/30/15 17:30 Norvasc - PO Not Given DAILY [facility] Chlorhexidine Gluconate 15 ml 07/28/15 22:00 07/30/15 22:55 Peridex - MM 15 ml BID [facility] Administration Hydralazine HCl 5 mg 07/30/15 17:52 Apresoline Injection - IVPUSH Q6H PRN HYPERTENSION Pantoprazole Sodium 40 mg/ 100 mls @ 200 mls/hr 07/28/15 22:00 07/30/15 22:55 Sodium Chloride IVPB 200 mls/hr BID [facility] Administration Sodium Chloride 1,000 mls @ 100 mls/hr 07/30/15 18:00 07/31/15 05:41 1/2 Normal Saline IV 100 mls/hr ASDIR [facility] Administration Insulin Aspart 0 units 07/29/15 00:00 07/31/15 06:06 Novolog Flexpen Sliding Scale - SQ Not Given Q6HPO [facility] Protocol Insulin Detemir 16 units 07/29/15 22:00 07/30/15 22:50 Levemir Flexpen - SQ Not Given HS [facility] Lisinopril 20 mg 07/29/15 10:00 07/30/15 17:31 Prinivil - PO Not Given DAILY [facility] Metoprolol Tartrate 100 mg 07/27/15 12:52 07/30/15 22:28 Lopressor - PO Not Given BID [facility] Metoprolol Tartrate 5 mg 07/28/15 19:09 Lopressor Injection - IVPB Q6H PRN HYPERTENSION Multivitamins 5 ml 07/29/15 10:00 07/30/15 17:32 Thera-Plus - PO Not Given DAILY [facility] Ondansetron HCl 4 mg 07/28/15 19:09 Zofran Injection - IVPB Q6H PRN NAUSEA Vancomycin HCl 125 mg 07/29/15 00:00 07/31/15 06:07 Vancomycin Oral Solution PO Not Given Q6HPO [facility] Last Vital Signs Temp Pulse Resp BP Pulse Ox 100.4 F H 113 H 16 146/85 100 07/31/15 07:17 07/31/15 07:17 07/31/15 07:17 07/31/15 07:17 07/30/15 22:00 Intake & Output 07/28/15 07/29/15 07/30/15 07/31/15 23:59 23:59 23:59 23:59 Intake Total 650 2000 1300 Output Total 299 639 2338 350 Balance -150 1300 -1200 950 Weight 148 lb 2.41 oz General- resting comfortable, pt does not withdraw to pain, +gag reflex HEENT- sluggish pupil response CV- S1S2 RRR no murmur/rub/gallops Lungs- coarse breath sounds B/L no wheezing/rhonchi/rales Abdomen- soft NT/ND +LUQ PEG no guarding/rebound +BS Extremities- B/L UE 1+ pitting edema Lines: trach/NGT/PEG/Schwartz/Rectal CBCD WBC 13.8 K/mm3 (4.0-10.0) H 07/31/15 10:10 RBC 3.10 M/mm3 (4.00-5.60) L 07/31/15 10:10 Hgb 9.0 GM/dL (11.7-16.9) L 07/31/15 10:10 Hct 27.8 % (35.4-49) L 07/31/15 10:10 MCV 89.6 fl (80-96) 07/31/15 10:10 MCHC 32.3 g/dl (32.0-35.9) 07/31/15 10:10 RDW 14.3 % (11.9-15.9) 07/31/15 10:10 Plt Count 167 K/MM3 (134-434) 07/31/15 10:10 MPV 8.5 fl (7.5-11.1) 07/31/15 10:10 CMP Sodium 152 mmol/L (136-145) H 07/31/15 10:10 Potassium 3.9 mmol/L (3.5-5.1) 07/29/15 07:00 Chloride 113 mmol/L (98-107) H 07/29/15 07:00 Carbon Dioxide 33 mmol/L (21-32) H 07/29/15 07:00 Anion Gap 4 (8-16) L 07/29/15 07:00 BUN 26 mg/dL (7-18) H 07/29/15 07:00 Creatinine 0.9 mg/dL (0.6-1.3) 07/29/15 07:00 Creat Clearance w eGFR > 60 (>60) 07/29/15 07:00 Calcium 9.5 mg/dL (8.5-10.1) 07/29/15 07:00 Total Bilirubin 0.3 mg/dL (0.2-1.0) 07/29/15 07:00 AST 25 U/L (15-37) 07/29/15 07:00 ALT 36 U/L (12-78) D 07/29/15 07:00 Alkaline Phosphatase 104 U/L (45-117) 07/29/15 07:00 Total Protein 7.0 g/dl (6.4-8.2) 07/29/15 07:00 Albumin 2.6 g/dl (3.4-5.0) L 07/29/15 07:00 Microbiology 07/27/15 19:00 Blood Culture - Preliminary Blood - Peripheral Venous NO GROWTH OBTAINED AFTER 72 HOURS, INCUBATION TO CONTINUE FOR 2 DAYS. 07/27/15 19:00 Blood Culture - Preliminary Blood - Peripheral Venous NO GROWTH OBTAINED AFTER 72 HOURS, INCUBATION TO CONTINUE FOR 2 DAYS. A/P 75 yo M with PMH HTN, DM, inguinal hernia a/w BRBPR and melena with multiple syncopal episodes. 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 Neuro- Anoxic brain injury s/p brainstem CVA- +brainstem functioning (pupils reactive, breathing over the vent). Not requiring medications for agitation. unresponsive. 2. CV- HTN- controlled. will cont to monitor and titrate medications accordingly. Cont lisinopril/metoprolol/norvasc 3. Respiratory- s/p trach. saturating well. 4. Abdomen- s/p R hemicolectomy. s/p PEG yesterday. confirmed placement with GI series and will start tube feeds. Glucerna @ 50cc/H. remove NGT 5. Hypernatremia- will d/c IVF. 3.45L water deficit. start 250cc Q6H 6. ID- C. diff -Afebrile. leukocytosis improved. on vanco po day 15 7. Endo- DM- controlled. Cont levemir 16 units at bedtime. cont FS, ISS 8. DVT/GI PPx- on scd, protonix 9. Poor prognosis, DNR. Pt will require fpc placement, will likely be medically stable for discharge for sunday.
[2015-07-31] MEDS: PANTOPRAZOLE SODIUM 40 MG in SODIUM CHLORIDE 100 ML IVPB SCH ×2 (10:41→22:16)
[2015-07-31 10:45] LABS: BASOPHIL 0.5 % (0-2.0); EOSINOPHIL 2.3 % (0-4.5); MCH 28.9 pg (25.7-33.7); MCHC 32.3 g/dl (32.0-35.9); MEAN CELL VOLUME 89.6 fl (80-96); MEAN PLT VOLUME 8.5 fl (7.5-11.1); NEUTROPHILS 81.9 % (42.8-82.8); PLATELET COUNT 167 K/MM3 (134-434); RDW 14.3 % (11.9-15.9); WHITE BLOOD COUNT 13.8 K/mm3 (4.0-10.0)
[2015-07-31] MEDS: MULTIVITAMINS THERAPEUTIC PO SCH (11:20)
[2015-07-31] MEDS: METOPROLOL TARTRATE 50 MG TABLET (FP) PO SCH (11:20)
[2015-07-31] MEDS: CHLORHEXIDINE GLUCONATE 0.12% 15ML CUP MM SCH ×2 (11:21→22:16)
[2015-07-31] MEDS: amLODIPine BESYLATE 10 MG TABLET (FP) PO SCH (11:21)
[2015-07-31] MEDS: LISINOPRIL 20 MG TABLET (FP) PO SCH (11:21)
[2015-07-31] MEDS: AMINO ACIDS/PROTEIN HYDROLYS SUGAR-FREE 30 ML PACKET PO SCH (11:22)
--- NOTE | 2015-07-31 12:04 | PN ---
Progress Note, Physician History of Present Illness: PULMONARY UNRESPONSIVE ON VENT SUPPORT AC MODE,FEBRILE - Current Medication List Current Medications: Active Medications Acetaminophen (Tylenol Oral Solution -) 650 mg NGT Q6H PRN PRN Reason: FEVER Last Admin: 07/31/15 11:20 Dose: 650 mg Amino Acids (Prostat Sugar-Free Packet -) 30 ml PO DAILY [facility] [place] Last Admin: 07/31/15 11:22 Dose: 30 ml Amlodipine Besylate (Norvasc -) 10 mg PO DAILY [facility] [place] Last Admin: 07/31/15 11:21 Dose: 10 mg Chlorhexidine Gluconate (Peridex -) 15 ml MM BID [facility] [place] Last Admin: 07/31/15 11:21 Dose: 15 ml Hydralazine HCl (Apresoline Injection -) 5 mg IVPUSH Q6H PRN PRN Reason: HYPERTENSION Pantoprazole Sodium 40 mg/ (Sodium Chloride) 100 mls @ 200 mls/hr IVPB BID [facility] [place] Last Admin: 07/31/15 10:41 Dose: 200 mls/hr Sodium Chloride (1/2 Normal Saline) 1,000 mls @ 100 mls/hr IV ASDIR [facility] [place] Last Admin: 07/31/15 05:41 Dose: 100 mls/hr Insulin Aspart (Novolog Flexpen Sliding Scale -) 0 units SQ Q6HPO [facility] PRN Reason: Protocol Last Admin: 07/31/15 11:22 Dose: 2 units Insulin Detemir (Levemir Flexpen -) 16 units SQ HS [facility] [place] Last Admin: 07/30/15 22:50 Dose: Not Given Lisinopril (Prinivil -) 20 mg PO DAILY [facility] [place] Last Admin: 07/31/15 11:21 Dose: 20 mg Metoprolol Tartrate (Lopressor -) 100 mg PO BID [facility] [place] Last Admin: 07/31/15 11:20 Dose: 100 mg Metoprolol Tartrate (Lopressor Injection -) 5 mg IVPB Q6H PRN PRN Reason: HYPERTENSION Multivitamins (Thera-Plus -) 5 ml PO DAILY [facility] [place] Last Admin: 07/31/15 11:20 Dose: 5 ml Ondansetron HCl (Zofran Injection -) 4 mg IVPB Q6H PRN PRN Reason: NAUSEA Vancomycin HCl (Vancomycin Oral Solution) 125 mg PO Q6HPO [facility] [place] Last Admin: 10/03/15 11:23 Dose: 125 mg - Objective Vital Signs: Vital Signs Temperature 100.7 F H 07/31/15 11:00 Pulse Rate 108 H 07/31/15 11:00 Respiratory Rate 16 07/31/15 11:00 Blood Pressure 147/91 07/31/15 11:00 O2 Sat by Pulse Oximetry (%) 100 07/30/15 22:00 Constitutional: Yes: No Distress, Thin, Other (UNRESPONSIVE) Eyes: Yes: WNL HENT: Yes: WNL Neck: Yes: Supple (TRACH) Cardiovascular: Yes: Regular Rate and Rhythm, S1, S2 Respiratory: Yes: Diminished (FEW RHONCHI) Gastrointestinal: Yes: Normal Bowel Sounds, Soft Extremities: Yes: WNL Edema: No Labs: CBC, BMP 07/31/15 10:10 07/31/15 10:10 INR, PTT INR 1.30 (0.86-1.14) H 07/29/15 10:00 Problem List - Problems (1) Anoxic brain damage Code: G93.1 (2) Lower GI bleed Code: K92.2 (3) 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
[2015-07-31] MEDS: VANCOMYCIN 250 MG/5 ML ORAL SOLUTION GT SCH ×2 (17:31→23:16)
[2015-07-31] MEDS: METOPROLOL TARTRATE 50 MG TABLET (FP) GT SCH (22:16)
[2015-07-31] MEDS: INSULIN DETEMIR SQ SCH (23:15)
[2015-08-01] MEDS: INSULIN SLIDING SCALE (NOVOLOG) 1 VIAL SQ SCH ×4 (06:29→23:33)
[2015-08-01] MEDS: VANCOMYCIN 250 MG/5 ML ORAL SOLUTION GT SCH ×4 (06:30→23:34)
--- NOTE | 2015-08-01 07:29 | PN ---
Progress Note (short form) - Note Progress Note: Pt seen and examined. unresponsive Current Medications Generic Name Dose Route Start Last Admin Trade Name Freq PRN Reason Stop Dose Admin Acetaminophen 650 mg 07/31/15 15:42 Tylenol Oral Solution - GT Q6H PRN FEVER Amino Acids 30 ml 08/01/15 10:00 Prostat Sugar-Free Packet - GT DAILY [facility] Amlodipine Besylate 10 mg 08/01/15 10:00 Norvasc - GT DAILY [facility] Chlorhexidine Gluconate 15 ml 07/28/15 22:00 07/31/15 22:16 Peridex - MM 15 ml BID [facility] Administration Pantoprazole Sodium 40 mg/ 100 mls @ 200 mls/hr 07/28/15 22:00 07/31/15 22:16 Sodium Chloride IVPB 200 mls/hr BID [facility] Administration Insulin Aspart 0 units 07/29/15 00:00 08/01/15 06:29 Novolog Flexpen Sliding Scale - SQ 4 units Q6HPO [facility] Administration Protocol Insulin Detemir 16 units 07/29/15 22:00 07/31/15 23:15 Levemir Flexpen - SQ 16 units HS [facility] Administration Lisinopril 20 mg 08/01/15 10:00 Prinivil - GT DAILY [facility] Metoprolol Tartrate 5 mg 07/28/15 19:09 Lopressor Injection - IVPB Q6H PRN HYPERTENSION Metoprolol Tartrate 100 mg 07/31/15 22:00 07/31/15 22:16 Lopressor - GT 100 mg BID [facility] Administration Multivitamins 5 ml 07/31/15 15:38 Thera-Plus - GT DAILY [facility] Ondansetron HCl 4 mg 07/28/15 19:09 Zofran Injection - IVPB Q6H PRN NAUSEA Vancomycin HCl 125 mg 07/31/15 18:00 08/01/15 06:30 Vancomycin Oral Solution GT 125 mg Q6HPO [facility] Administration Last Vital Signs Temp Pulse Resp BP Pulse Ox 99.9 F H 93 H 16 142/84 98 08/01/15 06:00 08/01/15 06:00 08/01/15 06:00 08/01/15 06:00 08/01/15 00:00 Intake & Output 07/29/15 07/30/15 07/31/15 08/01/15 23:59 23:59 23:59 23:59 Intake Total 1999 3400 850 Output Total 700 1200 1550 Balance 1300 -1200 1850 850 General- resting comfortable, pt does not withdraw to pain, +gag reflex HEENT- sluggish pupil response CV- S1S2 RRR no murmur/rub/gallops Lungs- coarse breath sounds B/L no wheezing/rhonchi/rales Abdomen- soft NT/ND +LUQ PEG no guarding/rebound +BS Extremities- B/L UE 1+ pitting edema Lines: trach/PEG/Schwartz/Rectal CBCD WBC 13.4 K/mm3 (4.0-10.0) H 08/01/15 07:20 RBC 3.17 M/mm3 (4.00-5.60) L 08/01/15 07:20 Hgb 9.2 GM/dL (11.7-16.9) L 08/01/15 07:20 Hct 28.4 % (35.4-49) L 08/01/15 07:20 MCV 89.7 fl (80-96) 08/01/15 07:20 MCHC 32.5 g/dl (32.0-35.9) 08/01/15 07:20 RDW 14.2 % (11.9-15.9) 08/01/15 07:20 Plt Count 185 K/MM3 (134-434) 08/01/15 07:20 MPV 9.1 fl (7.5-11.1) 08/01/15 07:20 Microbiology 07/27/15 19:00 Blood Culture - Preliminary Blood - Peripheral Venous NO GROWTH OBTAINED AFTER 96 HOURS, INCUBATION TO CONTINUE FOR 1 DAYS. 07/27/15 19:00 Blood Culture - Preliminary Blood - Peripheral Venous NO GROWTH OBTAINED AFTER 96 HOURS, INCUBATION TO CONTINUE FOR 1 DAYS. 07/30/15 18:30 Blood Culture - Preliminary Blood - Peripheral Venous NO GROWTH OBTAINED AFTER 24 HOURS, INCUBATION TO CONTINUE FOR 4 DAYS. 07/30/15 18:30 Blood Culture - Preliminary Blood - Peripheral Venous NO GROWTH OBTAINED AFTER 24 HOURS, INCUBATION TO CONTINUE FOR 4 DAYS. A/P 75 yo M with PMH HTN, DM, inguinal hernia a/w BRBPR and melena with multiple syncopal episodes. 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 Neuro- Anoxic brain injury s/p brainstem CVA- +brainstem functioning (pupils reactive, breathing over the vent). Not requiring medications for agitation. unresponsive. 2. CV- HTN- controlled. will cont to monitor and titrate medications accordingly. Cont lisinopril/metoprolol/norvasc 3. Respiratory- s/p trach. saturating well. 4. Abdomen- s/p R hemicolectomy. s/p PEG yesterday. confirmed placement with GI series and will start tube feeds. Glucerna @ 50cc/H. 5. Hypernatremia- stable. increase water flushes to 300cc Q6H 6. ID- C. diff -Tmax 100.6. BCx repeated 24H ago, will obtain CXR leukocytosis stable. on vanco po day 16 7. Endo- DM- controlled. Cont levemir 16 units at bedtime. cont FS, ISS 8. DVT/GI PPx- on scd, protonix 9. Poor prognosis, DNR. Pt will require mcc placement once medically stable. 07/30/15 18:30 Blood Culture - Preliminary Blood - Peripheral Venous NO GROWTH OBTAINED AFTER 24 HOURS, INCUBATION TO CONTINUE FOR 4 DAYS. A/P 75 yo M with PMH HTN, DM, inguinal hernia a/w BRBPR and melena with multiple syncopal episodes. 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 Neuro- Anoxic brain injury s/p brainstem CVA- +brainstem functioning (pupils reactive, breathing over the vent). Not requiring medications for agitation. unresponsive. 2. CV- HTN- controlled. will cont to monitor and titrate medications accordingly. Cont lisinopril/metoprolol/norvasc 3. Respiratory- s/p trach. saturating well. 4. Abdomen- s/p R hemicolectomy. s/p PEG yesterday. confirmed placement with GI series and will start tube feeds. Glucerna @ 50cc/H. remove NGT 5. Hypernatremia- will d/c IVF. 3.45L water deficit. start 250cc Q6H 6. ID- C. diff -Afebrile. leukocytosis improved. on vanco po day 15 7. Endo- DM- controlled. Cont levemir 16 units at bedtime. cont FS, ISS 8. DVT/GI PPx- on scd, protonix 9. Poor prognosis, DNR. Pt will require mcc placement, will likely be medically stable for discharge for sunday.
[2015-08-01 09:18] LABS: BASOPHIL 0.6 % (0-2.0); EOSINOPHIL 2.5 % (0-4.5); MCH 29.1 pg (25.7-33.7); MCHC 32.5 g/dl (32.0-35.9); MEAN CELL VOLUME 89.7 fl (80-96); MEAN PLT VOLUME 9.1 fl (7.5-11.1); NEUTROPHILS 81.3 % (42.8-82.8); PLATELET COUNT 185 K/MM3 (134-434); RDW 14.2 % (11.9-15.9); WHITE BLOOD COUNT 13.4 K/mm3 (4.0-10.0)
[2015-08-01] MEDS: METOPROLOL TARTRATE 50 MG TABLET (FP) GT SCH ×2 (10:48→22:05)
[2015-08-01] MEDS: amLODIPine BESYLATE 10 MG TABLET (FP) GT SCH (10:49)
[2015-08-01] MEDS: CHLORHEXIDINE GLUCONATE 0.12% 15ML CUP MM SCH ×2 (10:50→22:05)
[2015-08-01] MEDS: LISINOPRIL 20 MG TABLET (FP) GT SCH (10:51)
[2015-08-01] MEDS: AMINO ACIDS/PROTEIN HYDROLYS SUGAR-FREE 30 ML PACKET GT SCH (10:51)
[2015-08-01] MEDS: MULTIVITAMINS THERAPEUTIC GT SCH (10:52)
[2015-08-01] MEDS: PANTOPRAZOLE SOD 40 MG SUSPENSION PACKET GT SCH (10:52)
[2015-08-01] MEDS: ACETAMINOPHEN 650 MG/20.3 ML ORAL SOLUTION (CUPS) GT PRN ×3 (10:53→23:34)
--- NOTE | 2015-08-01 11:08 | PN ---
Progress Note, Physician History of Present Illness: PULMONARY NO CHANGE UNRESPONSIVE ON VENT SUPPORT AC MODE. - Current Medication List Current Medications: Active Medications Acetaminophen (Tylenol Oral Solution -) 650 mg GT Q6H PRN PRN Reason: FEVER Last Admin: 08/01/15 10:53 Dose: 650 mg Amino Acids (Prostat Sugar-Free Packet -) 30 ml GT DAILY [facility] Last Admin: 08/01/15 10:51 Dose: 30 ml Amlodipine Besylate (Norvasc -) 10 mg GT DAILY [facility] Last Admin: 08/01/15 10:49 Dose: 10 mg Chlorhexidine Gluconate (Peridex -) 15 ml MM BID [facility] Last Admin: 08/01/15 10:50 Dose: 15 ml Insulin Aspart (Novolog Flexpen Sliding Scale -) 0 units SQ Q6HPO [facility] PRN Reason: Protocol Last Admin: 08/01/15 06:29 Dose: 4 units Insulin Detemir (Levemir Flexpen -) 16 units SQ HS [facility] Last Admin: 07/31/15 23:15 Dose: 16 units Lisinopril (Prinivil -) 20 mg GT DAILY [facility] Last Admin: 08/01/15 10:51 Dose: 20 mg Metoprolol Tartrate (Lopressor Injection -) 5 mg IVPB Q6H PRN PRN Reason: HYPERTENSION Metoprolol Tartrate (Lopressor -) 100 mg GT BID [facility] Last Admin: 08/01/15 10:48 Dose: 100 mg Multivitamins (Thera-Plus -) 5 ml GT DAILY [facility] Last Admin: 08/01/15 10:52 Dose: 5 ml Ondansetron HCl (Zofran Injection -) 4 mg IVPB Q6H PRN PRN Reason: NAUSEA Pantoprazole Sodium (Protonix Packets For Oral Suspension -) 40 mg GT DAILY [facility] Last Admin: 08/01/15 10:52 Dose: 40 mg Vancomycin HCl (Vancomycin Oral Solution) 125 mg GT Q6HPO [facility] Last Admin: 08/01/15 06:30 Dose: 125 mg - Objective Vital Signs: Vital Signs Temperature 99.9 F H 08/01/15 06:00 Pulse Rate 93 H 08/01/15 06:00 Respiratory Rate 15 08/01/15 10:00 Blood Pressure 142/84 08/01/15 06:00 O2 Sat by Pulse Oximetry (%) 98 08/01/15 00:00 Constitutional: Yes: Thin, Other (UNRESPONSIVE) Eyes: Yes: WNL HENT: Yes: WNL Neck: Yes: WNL Cardiovascular: Yes: Regular Rate and Rhythm, S1, S2 Respiratory: Yes: Diminished Gastrointestinal: Yes: WNL Extremities: Yes: WNL Edema: No Neurological: Yes: Unresponsive Labs: CBC, BMP 08/01/15 07:20 08/01/15 07:20 INR, PTT INR 1.30 (0.86-1.14) H 07/29/15 10:00 Problem List - Problems (1) Anoxic brain damage Code: G93.1 (2) Lower GI bleed Code: K92.2 (3) 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 - enteral feeds - DVT/GI prophylaxis -chest x-ray today - Prognosis poor DR HENRY
[2015-08-01] MEDS: INSULIN DETEMIR SQ SCH (23:33)
[2015-08-02] MEDS: INSULIN SLIDING SCALE (NOVOLOG) 1 VIAL SQ SCH ×4 (05:37→21:02)
[2015-08-02] MEDS: VANCOMYCIN 250 MG/5 ML ORAL SOLUTION GT SCH ×3 (05:37→18:26)
[2015-08-02] MEDS: ACETAMINOPHEN 650 MG/20.3 ML ORAL SOLUTION (CUPS) GT PRN ×2 (05:37→14:49)
--- NOTE | 2015-08-02 07:44 | PN ---
Progress Note (short form) - Note Progress Note: Pt seen and examined. unresponsive Current Medications Generic Name Dose Route Start Last Admin Trade Name Freq PRN Reason Stop Dose Admin Acetaminophen 650 mg 07/31/15 15:42 08/02/15 05:37 Tylenol Oral Solution - GT 650 mg Q6H PRN Administration FEVER Amino Acids 30 ml 08/01/15 10:00 08/01/15 10:51 Prostat Sugar-Free Packet - GT 30 ml DAILY [facility] Administration Amlodipine Besylate 10 mg 08/01/15 10:00 08/01/15 10:49 Norvasc - GT 10 mg DAILY [facility] Administration Chlorhexidine Gluconate 15 ml 07/28/15 22:00 08/01/15 22:05 Peridex - MM 15 ml BID [facility] Administration Insulin Aspart 0 units 07/29/15 00:00 08/02/15 05:37 Novolog Flexpen Sliding Scale - SQ 6 units Q6HPO [facility] Administration Protocol Insulin Detemir 16 units 07/29/15 22:00 08/01/15 23:33 Levemir Flexpen - SQ 16 units HS [facility] Administration Lisinopril 20 mg 08/01/15 10:00 08/01/15 10:51 Prinivil - GT 20 mg DAILY [facility] Administration Metoprolol Tartrate 5 mg 07/28/15 19:09 Lopressor Injection - IVPB Q6H PRN HYPERTENSION Metoprolol Tartrate 100 mg 07/31/15 22:00 08/01/15 22:05 Lopressor - GT 100 mg BID [facility] Administration Multivitamins 5 ml 07/31/15 15:38 08/01/15 10:52 Thera-Plus - GT 5 ml DAILY [facility] Administration Ondansetron HCl 4 mg 07/28/15 19:09 Zofran Injection - IVPB Q6H PRN NAUSEA Pantoprazole Sodium 40 mg 08/01/15 10:00 08/01/15 10:52 Protonix Packets For Oral Suspension - GT 40 mg DAILY [facility] Administration Vancomycin HCl 125 mg 07/31/15 18:00 08/02/15 05:37 Vancomycin Oral Solution GT 125 mg Q6HPO [facility] Administration Last Vital Signs Temp Pulse Resp BP Pulse Ox 101.7 F H 96 H 14 153/79 100 08/02/15 06:00 08/02/15 06:00 08/02/15 06:25 08/02/15 06:00 08/01/15 21:00 General- resting comfortable, pt does not withdraw to pain, +gag reflex HEENT- sluggish pupil response CV- S1S2 RRR no murmur/rub/gallops Lungs- coarse breath sounds B/L no wheezing/rhonchi/rales Abdomen- soft NT/ND +LUQ PEG no guarding/rebound +BS Extremities- B/L UE 1+ pitting edema Lines: trach/PEG/Schwartz/Rectal CBCD WBC 12.4 K/mm3 (4.0-10.0) H 08/02/15 06:00 RBC 3.13 M/mm3 (4.00-5.60) L 08/02/15 06:00 Hgb 9.2 GM/dL (11.7-16.9) L 08/02/15 06:00 Hct 28.3 % (35.4-49) L 08/02/15 06:00 MCV 90.2 fl (80-96) 08/02/15 06:00 MCHC 32.4 g/dl (32.0-35.9) 08/02/15 06:00 RDW 14.0 % (11.9-15.9) 08/02/15 06:00 Plt Count 182 K/MM3 (134-434) 08/02/15 06:00 MPV 9.1 fl (7.5-11.1) 08/02/15 06:00 CMP Sodium 150 mmol/L (136-145) H 08/02/15 06:00 Potassium 3.9 mmol/L (3.5-5.1) 07/29/15 07:00 Chloride 113 mmol/L (98-107) H 07/29/15 07:00 Carbon Dioxide 33 mmol/L (21-32) H 07/29/15 07:00 Anion Gap 4 (8-16) L 07/29/15 07:00 BUN 26 mg/dL (7-18) H 07/29/15 07:00 Creatinine 0.9 mg/dL (0.6-1.3) 07/29/15 07:00 Creat Clearance w eGFR > 60 (>60) 07/29/15 07:00 Calcium 9.5 mg/dL (8.5-10.1) 07/29/15 07:00 Total Bilirubin 0.3 mg/dL (0.2-1.0) 07/29/15 07:00 AST 25 U/L (15-37) 07/29/15 07:00 ALT 36 U/L (12-78) D 07/29/15 07:00 Alkaline Phosphatase 104 U/L (45-117) 07/29/15 07:00 Total Protein 7.0 g/dl (6.4-8.2) 07/29/15 07:00 Albumin 2.6 g/dl (3.4-5.0) L 07/29/15 07:00 Microbiology 07/27/15 19:00 Blood Culture - Final Blood - Peripheral Venous NO GROWTH AFTER 5 DAYS INCUBATION 07/27/15 19:00 Blood Culture - Final Blood - Peripheral Venous NO GROWTH AFTER 5 DAYS INCUBATION 07/30/15 18:30 Blood Culture - Preliminary Blood - Peripheral Venous NO GROWTH OBTAINED AFTER 48 HOURS, INCUBATION TO CONTINUE FOR 3 DAYS. 07/30/15 18:30 Blood Culture - Preliminary Blood - Peripheral Venous NO GROWTH OBTAINED AFTER 48 HOURS, INCUBATION TO CONTINUE FOR 3 DAYS. CXR- no acute infiltrate A/P 75 yo M with PMH HTN, DM, inguinal hernia a/w BRBPR and melena with multiple syncopal episodes. 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 Neuro- Anoxic brain injury s/p brainstem CVA- +brainstem functioning (pupils reactive, breathing over the vent). Not requiring medications for agitation. unresponsive. 2. CV- HTN- controlled. will cont to monitor and titrate medications accordingly. Cont lisinopril/metoprolol/norvasc 3. Respiratory- s/p trach. saturating well. Vent dependednt 4. Abdomen- s/p R hemicolectomy. s/p PEG tolerating tube feeds. Glucerna @ 50cc/ H. 5. Hypernatremia- stable. cont water flushes at 300cc Q6H 6. ID- C. diff -Tmax 101.7. CXR negative. Repeat BCx no growth will repeat Cdiff culture as stool yellow. WIll start Flagyl 500mg Q8H. will call ID for other suggestions. on vanco po day 17 7. Endo- DM- uncontrolled. possible due to infection. will increase levemir to 20units QHS and start novolog 2units QAC. cont FS, ISS 8. DVT/GI PPx- on scd, protonix 9. Poor prognosis, DNR. Pt will require technician terminal and repeater placement once medically stable.
[2015-08-02] MEDS: METRONIDAZOLE 500 MG PREMIXED 100 ML IVPB SCH ×4 (07:45→18:28)
[2015-08-02 08:04] LABS: BASOPHIL 0.5 % (0-2.0); EOSINOPHIL 3.3 % (0-4.5); MCH 29.2 pg (25.7-33.7); MCHC 32.4 g/dl (32.0-35.9); MEAN CELL VOLUME 90.2 fl (80-96); MEAN PLT VOLUME 9.1 fl (7.5-11.1); NEUTROPHILS 80.8 % (42.8-82.8); PLATELET COUNT 182 K/MM3 (134-434); WHITE BLOOD COUNT 12.4 K/mm3 (4.0-10.0)
[2015-08-02] MEDS: CHLORHEXIDINE GLUCONATE 0.12% 15ML CUP MM SCH ×3 (11:05→21:01)
[2015-08-02] MEDS: METOPROLOL TARTRATE 50 MG TABLET (FP) GT SCH ×2 (11:06→21:00)
[2015-08-02] MEDS: LISINOPRIL 20 MG TABLET (FP) GT SCH (11:06)
[2015-08-02] MEDS: amLODIPine BESYLATE 10 MG TABLET (FP) GT SCH (11:07)
[2015-08-02] MEDS: AMINO ACIDS/PROTEIN HYDROLYS SUGAR-FREE 30 ML PACKET GT SCH (11:08)
[2015-08-02] MEDS: PANTOPRAZOLE SOD 40 MG SUSPENSION PACKET GT SCH ×3 (11:08→15:00)
[2015-08-02] MEDS: MULTIVITAMINS THERAPEUTIC GT SCH (11:08)
--- NOTE | 2015-08-02 12:23 | PN ---
Progress Note, Physician History of Present Illness: PULMONARY NO CHANGE UNRESPONSIVE ON VENT SUPPORT AC MODE,REMAINS FEBRILE. - Current Medication List Current Medications: Active Medications Acetaminophen (Tylenol Oral Solution -) 650 mg GT Q6H PRN PRN Reason: FEVER Last Admin: 08/02/15 05:37 Dose: 650 mg Amino Acids (Prostat Sugar-Free Packet -) 30 ml GT DAILY [facility] Last Admin: 08/02/15 11:08 Dose: 30 ml Amlodipine Besylate (Norvasc -) 10 mg GT DAILY [facility] Last Admin: 08/02/15 11:07 Dose: 10 mg Chlorhexidine Gluconate (Peridex -) 15 ml MM BID [facility] Last Admin: 08/01/15 22:05 Dose: 15 ml Metronidazole (Flagyl 500mg Premixed Ivpb -) 100 mls @ 100 mls/hr IVPB Q8H-IV [facility] Last Admin: 08/02/15 11:07 Dose: 100 mls/hr Insulin Aspart (Novolog Flexpen Sliding Scale -) 0 units SQ Q6HPO [facility] PRN Reason: Protocol Last Admin: 08/02/15 05:37 Dose: 6 units Insulin Detemir (Levemir Flexpen -) 16 units SQ HS [facility] Last Admin: 08/01/15 23:33 Dose: 16 units Lisinopril (Prinivil -) 20 mg GT DAILY [facility] Last Admin: 08/02/15 11:06 Dose: 20 mg Metoprolol Tartrate (Lopressor Injection -) 5 mg IVPB Q6H PRN PRN Reason: HYPERTENSION Metoprolol Tartrate (Lopressor -) 100 mg GT BID [facility] Last Admin: 08/02/15 11:06 Dose: 100 mg Multivitamins (Thera-Plus -) 5 ml GT DAILY [facility] Last Admin: 08/02/15 11:08 Dose: 5 ml Ondansetron HCl (Zofran Injection -) 4 mg IVPB Q6H PRN PRN Reason: NAUSEA Pantoprazole Sodium (Protonix Packets For Oral Suspension -) 40 mg GT DAILY [facility] Last Admin: 08/02/15 11:08 Dose: 40 mg Vancomycin HCl (Vancomycin Oral Solution) 125 mg GT Q6HPO [facility] Last Admin: 08/02/15 11:09 Dose: 125 mg - Objective Vital Signs: Vital Signs Temperature 101.7 F H 08/02/15 06:00 Pulse Rate 96 H 08/02/15 11:04 Respiratory Rate 13 08/02/15 11:04 Blood Pressure 151/84 08/02/15 11:04 O2 Sat by Pulse Oximetry (%) 100 08/01/15 21:00 Constitutional: Yes: Thin, Other (UNRESPONSIVE) Eyes: Yes: WNL HENT: Yes: WNL Neck: Yes: Supple (TRACH) Cardiovascular: Yes: Regular Rate and Rhythm, S1, S2 Respiratory: Yes: Rhonchi (SCATTERED RHONCHI) Gastrointestinal: Yes: Normal Bowel Sounds, Soft Extremities: Yes: WNL Edema: No Labs: CBC, BMP 08/02/15 06:00 08/02/15 06:00 INR, PTT INR 1.30 (0.86-1.14) H 07/29/15 10:00 - ....Imaging Chest X-ray: Report Reviewed, Image Reviewed (no infiltrates) Problem List - Problems (1) Anoxic brain damage Code: G93.1 (2) Lower GI bleed Code: K92.2 (3) 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 - enteral feeds - DVT/GI prophylaxis - cultures - Prognosis poor DR HENRY
--- NOTE | 2015-08-02 16:22 | PN ---
Progress Note, Physician History of Present Illness: Persistant, higher grade fever past 24-28h Continued loose stool in rectal tube Poorly responsive - Current Medication List Current Medications: Active Medications Acetaminophen (Tylenol Oral Solution -) 650 mg GT Q6H PRN PRN Reason: FEVER Last Admin: 08/02/15 14:49 Dose: 650 mg Amino Acids (Prostat Sugar-Free Packet -) 30 ml GT DAILY [facility] Last Admin: 08/02/15 11:08 Dose: 30 ml Amlodipine Besylate (Norvasc -) 10 mg GT DAILY [facility] Last Admin: 08/02/15 11:07 Dose: 10 mg Chlorhexidine Gluconate (Peridex -) 15 ml MM BID [facility] Last Admin: 08/02/15 15:00 Dose: 15 ml Metronidazole (Flagyl 500mg Premixed Ivpb -) 100 mls @ 100 mls/hr IVPB Q8H-IV [facility] Last Admin: 08/02/15 11:10 Dose: 100 mls/hr Insulin Aspart (Novolog Flexpen Sliding Scale -) 0 units SQ Q6HPO [facility] PRN Reason: Protocol Last Admin: 08/02/15 12:15 Dose: 4 units Insulin Aspart (Novolog Flexpen -) 2 units SQ TIDAC [facility] Insulin Detemir (Levemir Flexpen -) 20 units SQ [facility] Lisinopril (Prinivil -) 20 mg GT DAILY [facility] Last Admin: 08/02/15 11:06 Dose: 20 mg Metoprolol Tartrate (Lopressor Injection -) 5 mg IVPB Q6H PRN PRN Reason: HYPERTENSION Metoprolol Tartrate (Lopressor -) 100 mg GT BID [facility] Last Admin: 08/02/15 11:06 Dose: 100 mg Multivitamins (Thera-Plus -) 5 ml GT DAILY [facility] Last Admin: 08/02/15 11:08 Dose: 5 ml Ondansetron HCl (Zofran Injection -) 4 mg IVPB Q6H PRN PRN Reason: NAUSEA Pantoprazole Sodium (Protonix Packets For Oral Suspension -) 40 mg GT DAILY [facility] Last Admin: 08/02/15 15:00 Dose: 40 mg Vancomycin HCl (Vancomycin Oral Solution) 125 mg GT Q6HPO [facility] Last Admin: 08/02/15 11:09 Dose: 125 mg - Objective Vital Signs: Vital Signs Temperature 101.2 F H 08/02/15 14:45 Pulse Rate 89 08/02/15 14:45 Respiratory Rate 15 08/02/15 14:45 Blood Pressure 139/82 08/02/15 14:45 O2 Sat by Pulse Oximetry (%) 98 08/02/15 10:34 Constitutional: Yes: No Distress Cardiovascular: Yes: Regular Rate and Rhythm, S1, S2 Respiratory: Yes: Mechanically Ventilated Gastrointestinal: Yes: Normal Bowel Sounds, Soft. No: Tenderness Edema: Yes Integumentary: Yes: Other (+ sacral decubitus ; + necrotic tissue; no drainage) Labs: CBC, BMP 08/02/15 06:00 08/02/15 06:00 INR, PTT INR 1.30 (0.86-1.14) H 07/29/15 10:00 Assessment/Plan ? recurrent aspiration pneumonia Respiratory failure s/p Lower GI bleed fever Leukocytosis Azotemia Reculture empiric ceftriaxone/ flagyl, stat dose vancomycin
[2015-08-02] MEDS: CEFTRIAXONE 1 GM in DEXTROSE 5%-WATER - 50 ML IVPB SCH (18:10)
[2015-08-02] MEDS: INSULIN ASPART SQ SCH (18:25)
[2015-08-02 19:14] LABS: URINE APPEARANCE CLOUDY; URINE BILIRUBIN NEGATIVE (NEGATIVE); URINE BLOOD NEGATIVE (NEGATIVE); URINE COLOR YELLOW; URINE GLUCOSE (UA) 1+ (NEGATIVE); URINE KETONE NEGATIVE (NEGATIVE); URINE LEUK ESTERASE NEGATIVE (NEGATIVE); URINE NITRITE NEGATIVE (NEGATIVE); URINE PROTEIN NEGATIVE (NEGATIVE); URINE UROBILINOGEN NEGATIVE E.U./dl (0.2-1.0)
[2015-08-02] MEDS: INSULIN DETEMIR SQ SCH (20:59)
[2015-08-03] MEDS: VANCOMYCIN 250 MG/5 ML ORAL SOLUTION GT SCH ×5 (00:03→23:09)
[2015-08-03] MEDS: METRONIDAZOLE 500 MG PREMIXED 100 ML IVPB SCH ×3 (02:01→18:44)
[2015-08-03] MEDS: INSULIN SLIDING SCALE (NOVOLOG) 1 VIAL SQ SCH ×5 (02:02→23:09)
[2015-08-03] MEDS: INSULIN ASPART SQ SCH ×4 (06:22→23:08)
[2015-08-03 07:23] LABS: BASOPHIL 0.5 % (0-2.0); EOSINOPHIL 2.6 % (0-4.5); MCH 28.5 pg (25.7-33.7); MCHC 32.1 g/dl (32.0-35.9); MEAN CELL VOLUME 88.9 fl (80-96); NEUTROPHILS 82.3 % (42.8-82.8); PLATELET COUNT 188 K/MM3 (134-434); RDW 14.2 % (11.9-15.9); WHITE BLOOD COUNT 14.2 K/mm3 (4.0-10.0)
--- NOTE | 2015-08-03 08:12 | PN ---
Progress Note (short form) - Note Progress Note: Pt seen and examined. unresponsive Current Medications Generic Name Dose Route Start Last Admin Trade Name Freq PRN Reason Stop Dose Admin Acetaminophen 650 mg 07/31/15 15:42 08/02/15 14:49 Tylenol Oral Solution - GT 650 mg Q6H PRN Administration FEVER Amino Acids 30 ml 08/01/15 10:00 08/02/15 11:08 Prostat Sugar-Free Packet - GT 30 ml DAILY [facility] Administration Amlodipine Besylate 10 mg 08/01/15 10:00 08/02/15 11:07 Norvasc - GT 10 mg DAILY [facility] Administration Chlorhexidine Gluconate 15 ml 07/28/15 22:00 08/02/15 21:01 Peridex - MM 15 ml BID [facility] Administration Metronidazole 100 mls @ 100 mls/hr 08/02/15 07:45 08/03/15 02:01 Flagyl 500mg Premixed Ivpb - IVPB 100 mls/hr Q8H-IV [facility] Administration Ceftriaxone Sodium 1 gm/ 50 mls @ 100 mls/hr 08/02/15 16:30 08/02/15 18:10 Dextrose IVPB 100 mls/hr DAILY [facility] Administration Insulin Aspart 0 units 07/29/15 00:00 08/03/15 06:21 Novolog Flexpen Sliding Scale - SQ 4 units Q6HPO [facility] Administration Protocol Insulin Aspart 2 units 08/02/15 16:30 08/03/15 06:22 Novolog Flexpen - SQ 2 units TIDAC [facility] Administration Insulin Detemir 20 units 08/02/15 22:00 08/02/15 20:59 Levemir Flexpen - SQ 20 units HS [facility] Administration Lisinopril 20 mg 08/01/15 10:00 08/02/15 11:06 Prinivil - GT 20 mg DAILY [facility] Administration Metoprolol Tartrate 5 mg 07/28/15 19:09 Lopressor Injection - IVPB Q6H PRN HYPERTENSION Metoprolol Tartrate 100 mg 07/31/15 22:00 08/02/15 21:00 Lopressor - GT 100 mg BID [facility] Administration Multivitamins 5 ml 07/31/15 15:38 08/02/15 11:08 Thera-Plus - GT 5 ml DAILY [facility] Administration Ondansetron HCl 4 mg 07/28/15 19:09 Zofran Injection - IVPB Q6H PRN NAUSEA Pantoprazole Sodium 40 mg 08/01/15 10:00 08/02/15 15:00 Protonix Packets For Oral Suspension - GT 40 mg DAILY [facility] Administration Vancomycin HCl 125 mg 07/31/15 18:00 08/03/15 06:22 Vancomycin Oral Solution GT 125 mg Q6HPO [facility] Administration Last Vital Signs Temp Pulse Resp BP Pulse Ox 99.2 F 80 18 145/65 99 08/03/15 06:00 08/03/15 06:00 08/03/15 06:00 08/03/15 06:00 08/02/15 22:36 General- resting comfortable, pt does not withdraw to pain, +gag reflex HEENT- PERRL, no secretions from trach CV- S1S2 RRR no murmur/rub/gallops Lungs- coarse breath sounds B/L no wheezing/rhonchi/rales Abdomen- soft NT/ND +LUQ PEG no guarding/rebound +BS Extremities- B/L UE 2+ pitting edema Lines: trach/PEG/Schwartz/Rectal CBCD WBC 14.2 K/mm3 (4.0-10.0) H 08/03/15 06:35 RBC 3.07 M/mm3 (4.00-5.60) L 08/03/15 06:35 Hgb 8.8 GM/dL (11.7-16.9) L 08/03/15 06:35 Hct 27.3 % (35.4-49) L 08/03/15 06:35 MCV 88.9 fl (80-96) 08/03/15 06:35 MCHC 32.1 g/dl (32.0-35.9) 08/03/15 06:35 RDW 14.2 % (11.9-15.9) 08/03/15 06:35 Plt Count 188 K/MM3 (134-434) 08/03/15 06:35 MPV 9.0 fl (7.5-11.1) 08/03/15 06:35 CMP Sodium 149 mmol/L (136-145) H 08/03/15 06:35 Potassium 3.9 mmol/L (3.5-5.1) 07/29/15 07:00 Chloride 113 mmol/L (98-107) H 07/29/15 07:00 Carbon Dioxide 33 mmol/L (21-32) H 07/29/15 07:00 Anion Gap 4 (8-16) L 07/29/15 07:00 BUN 26 mg/dL (7-18) H 07/29/15 07:00 Creatinine 0.9 mg/dL (0.6-1.3) 07/29/15 07:00 Creat Clearance w eGFR > 60 (>60) 07/29/15 07:00 Calcium 9.5 mg/dL (8.5-10.1) 07/29/15 07:00 Total Bilirubin 0.3 mg/dL (0.2-1.0) 07/29/15 07:00 AST 25 U/L (15-37) 07/29/15 07:00 ALT 36 U/L (12-78) D 07/29/15 07:00 Alkaline Phosphatase 104 U/L (45-117) 07/29/15 07:00 Total Protein 7.0 g/dl (6.4-8.2) 07/29/15 07:00 Albumin 2.6 g/dl (3.4-5.0) L 07/29/15 07:00 Microbiology 07/30/15 18:30 Blood Culture - Preliminary Blood - Peripheral Venous NO GROWTH OBTAINED AFTER 72 HOURS, INCUBATION TO CONTINUE FOR 2 DAYS. 07/30/15 18:30 Blood Culture - Preliminary Blood - Peripheral Venous NO GROWTH OBTAINED AFTER 72 HOURS, INCUBATION TO CONTINUE FOR 2 DAYS. A/P 75 yo M with PMH HTN, DM, inguinal hernia a/w BRBPR and melena with multiple syncopal episodes. 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 Neuro- Anoxic brain injury s/p brainstem CVA- +brainstem functioning (pupils reactive, breathing over the vent). Not requiring medications for agitation. unresponsive. 2. CV- HTN- controlled. will cont to monitor and titrate medications accordingly. Cont lisinopril/metoprolol/norvasc 3. Respiratory- s/p trach. saturating well. Vent dependednt 4. Abdomen- s/p R hemicolectomy. s/p PEG tolerating tube feeds. Glucerna @ 50cc/ H. 5. Hypernatremia- stable. cont water flushes at 300cc Q6H 6. ID- C. diff -Tmax 101.2. mild leukocytosis today. Awaiting repeat Cdiff cx evaluated by ID and started on Vanco IV and Ceftriaxone Day2. COnt Flagyl day2. on vanco po day 18 7. Endo- DM- uncontrolled. possible due to infection. insulin adjusted yesterday will monitor and adjust accordingly. cont FS, ISS 8. DVT/GI PPx- on scd, protonix 9. Poor prognosis, DNR. Pt will require intermodal customer service placement once medically stable.
[2015-08-03] MEDS: CHLORHEXIDINE GLUCONATE 0.12% 15ML CUP MM SCH ×2 (11:14→21:59)
[2015-08-03] MEDS: MULTIVITAMINS THERAPEUTIC GT SCH (11:14)
[2015-08-03] MEDS: amLODIPine BESYLATE 10 MG TABLET (FP) GT SCH (11:15)
[2015-08-03] MEDS: LISINOPRIL 20 MG TABLET (FP) GT SCH (11:15)
[2015-08-03] MEDS: METOPROLOL TARTRATE 50 MG TABLET (FP) GT SCH ×2 (11:16→21:58)
[2015-08-03] MEDS: PANTOPRAZOLE SOD 40 MG SUSPENSION PACKET GT SCH (11:16)
[2015-08-03] MEDS: AMINO ACIDS/PROTEIN HYDROLYS SUGAR-FREE 30 ML PACKET GT SCH (11:16)
--- NOTE | 2015-08-03 11:16 | PN ---
Progress Note (short form) - Note Progress Note: POD#11 s/p trach placement on vent VSS trach site: clean and dry A/P: s/p trach removed trach sutures today Please reconsult if needed
[2015-08-03] MEDS: ACETAMINOPHEN 650 MG/20.3 ML ORAL SOLUTION (CUPS) GT PRN ×2 (11:43→19:10)
--- NOTE | 2015-08-03 14:15 | PN ---
Progress Note, Physician History of Present Illness: Unresponsive Temps lower grade today + Loose stool in rectal tube Breathing non labored - Current Medication List Current Medications: Active Medications Acetaminophen (Tylenol Oral Solution -) 650 mg GT Q6H PRN PRN Reason: FEVER Last Admin: 08/03/15 11:43 Dose: 650 mg Amino Acids (Prostat Sugar-Free Packet -) 30 ml GT DAILY [facility] Last Admin: 08/03/15 11:16 Dose: 30 ml Amlodipine Besylate (Norvasc -) 10 mg GT DAILY [facility] Last Admin: 08/03/15 11:15 Dose: 10 mg Chlorhexidine Gluconate (Peridex -) 15 ml MM BID [facility] Last Admin: 08/03/15 11:14 Dose: 15 ml Metronidazole (Flagyl 500mg Premixed Ivpb -) 100 mls @ 100 mls/hr IVPB Q8H-IV [facility] Last Admin: 08/03/15 11:04 Dose: 100 mls/hr Ceftriaxone Sodium 1 gm/ (Dextrose) 50 mls @ 100 mls/hr IVPB DAILY [facility] Last Admin: 08/02/15 18:10 Dose: 100 mls/hr Insulin Aspart (Novolog Flexpen Sliding Scale -) 0 units SQ Q6HPO [facility] PRN Reason: Protocol Last Admin: 08/03/15 12:03 Dose: 4 units Insulin Aspart (Novolog Flexpen -) 2 units SQ Q6H [facility] Last Admin: 08/03/15 12:04 Dose: 2 units Insulin Detemir (Levemir Flexpen -) 20 units SQ HS [facility] Last Admin: 08/02/15 20:59 Dose: 20 units Lisinopril (Prinivil -) 20 mg GT DAILY [facility] Last Admin: 08/03/15 11:15 Dose: 20 mg Metoprolol Tartrate (Lopressor Injection -) 5 mg IVPB Q6H PRN PRN Reason: HYPERTENSION Metoprolol Tartrate (Lopressor -) 100 mg GT BID [facility] Last Admin: 08/03/15 11:16 Dose: 100 mg Multivitamins (Thera-Plus -) 5 ml GT DAILY [facility] Last Admin: 08/03/15 11:14 Dose: 5 ml Ondansetron HCl (Zofran Injection -) 4 mg IVPB Q6H PRN PRN Reason: NAUSEA Pantoprazole Sodium (Protonix Packets For Oral Suspension -) 40 mg GT DAILY [facility] Last Admin: 08/03/15 11:16 Dose: 40 mg Vancomycin HCl (Vancomycin Oral Solution) 125 mg GT Q6HPO [facility] Last Admin: 08/03/15 11:17 Dose: 125 mg - Objective Vital Signs: Vital Signs Temperature 100.5 F H 08/03/15 13:37 Pulse Rate 75 08/03/15 13:37 Respiratory Rate 20 08/03/15 13:37 Blood Pressure 141/74 08/03/15 13:37 O2 Sat by Pulse Oximetry (%) 98 08/03/15 10:18 Constitutional: Yes: No Distress Cardiovascular: Yes: Regular Rate and Rhythm, S1, S2 Respiratory: Yes: Mechanically Ventilated Gastrointestinal: Yes: Normal Bowel Sounds, Soft. No: Tenderness Edema: Yes Labs: CBC, BMP 08/03/15 06:35 08/03/15 06:35 INR, PTT INR 1.30 (0.86-1.14) H 07/29/15 10:00 Assessment/Plan ? recurrent aspiration pneumonia Respiratory failure s/p Lower GI bleed fever Leukocytosis Azotemia Repeat cultures pending Continue empiric ceftriaxone/ flagyl, stat dose vancomycin given
[2015-08-03] MEDS: CEFTRIAXONE 1 GM in DEXTROSE 5%-WATER - 50 ML IVPB SCH (14:34)
--- NOTE | 2015-08-03 15:08 | PN ---
Progress Note (short form) - Note Progress Note: Progress Note PULM/CCM Patient Name: CRUZ LEE Date of : 1940 Patient Status: Inpatient Attending Provider: Yolis Arthur No change in mental status. Fever noted. Intake & Output 07/31/15 08/01/15 08/02/15 08/03/15 23:59 23:59 23:59 23:59 Intake Total 3400 2750 2750 1450 Output Total 8193 382 7048 300 Balance 1850 1850 1670 1150 Last Vital Signs Temp Pulse Resp BP Pulse Ox 100.5 F H 75 16 141/74 98 08/03/15 13:37 08/03/15 13:37 08/03/15 14:24 08/03/15 13:37 08/03/15 10:18 Active Medications Acetaminophen (Tylenol Oral Solution -) 650 mg GT Q6H PRN PRN Reason: FEVER Last Admin: 08/03/15 11:43 Dose: 650 mg Amino Acids (Prostat Sugar-Free Packet -) 30 ml GT DAILY [facility] Last Admin: 08/03/15 11:16 Dose: 30 ml Amlodipine Besylate (Norvasc -) 10 mg GT DAILY [facility] Last Admin: 08/03/15 11:15 Dose: 10 mg Chlorhexidine Gluconate (Peridex -) 15 ml MM BID [facility] Last Admin: 08/03/15 11:14 Dose: 15 ml Metronidazole (Flagyl 500mg Premixed Ivpb -) 100 mls @ 100 mls/hr IVPB Q8H-IV [facility] Last Admin: 08/03/15 11:04 Dose: 100 mls/hr Ceftriaxone Sodium 1 gm/ (Dextrose) 50 mls @ 100 mls/hr IVPB DAILY [facility] Last Admin: 08/03/15 14:34 Dose: 100 mls/hr Insulin Aspart (Novolog Flexpen Sliding Scale -) 0 units SQ Q6HPO [facility] PRN Reason: Protocol Last Admin: 08/03/15 12:03 Dose: 4 units Insulin Aspart (Novolog Flexpen -) 2 units SQ Q6H [facility] Last Admin: 08/03/15 12:04 Dose: 2 units Insulin Detemir (Levemir Flexpen -) 20 units SQ HS [facility] Last Admin: 08/02/15 20:59 Dose: 20 units Lisinopril (Prinivil -) 20 mg GT DAILY [facility] Last Admin: 08/03/15 11:15 Dose: 20 mg Metoprolol Tartrate (Lopressor Injection -) 5 mg IVPB Q6H PRN PRN Reason: HYPERTENSION Metoprolol Tartrate (Lopressor -) 100 mg GT BID [facility] Last Admin: 08/03/15 11:16 Dose: 100 mg Multivitamins (Thera-Plus -) 5 ml GT DAILY [facility] Last Admin: 08/03/15 11:14 Dose: 5 ml Ondansetron HCl (Zofran Injection -) 4 mg IVPB Q6H PRN PRN Reason: NAUSEA Pantoprazole Sodium (Protonix Packets For Oral Suspension -) 40 mg GT DAILY [facility] Last Admin: 08/03/15 11:16 Dose: 40 mg Vancomycin HCl (Vancomycin Oral Solution) 125 mg GT Q6HPO [facility] Last Admin: 08/03/15 11:17 Dose: 125 mg Gen: Trached, obtunded Heart: S1S2 Lung: decreased breath sounds at the bases Abd: soft, (+) BS Ext: (+) edema Laboratory Results - last 24 hr 08/02/15 08/02/15 08/02/15 17:30 18:15 20:59 WBC RBC Hgb Hct MCV MCHC RDW Plt Count MPV Neutrophils % Lymphocytes % Monocytes % Eosinophils % Basophils % Sodium POC Glucometer 260 226 Urine Color Yellow Urine Appearance Cloudy Urine pH 5.0 Ur Specific [place] 1.029 Urine Protein Negative Urine Glucose (UA) 1+ H Urine Ketones Negative Urine Blood Negative Urine Nitrite Negative Urine Bilirubin Negative Urine Urobilinogen Negative Ur Leukocyte Esterase Negative 08/03/15 08/03/15 08/03/15 06:21 06:35 11:59 WBC 14.2 H RBC 3.07 L Hgb 8.8 L Hct 27.3 L MCV 88.9 MCHC 32.1 RDW 14.2 Plt Count 188 MPV 9.0 Neutrophils % 82.3 Lymphocytes % 10.2 Monocytes % 4.4 Eosinophils % 2.6 Basophils % 0.5 Sodium 149 H POC Glucometer 242 235 Urine Color Urine Appearance Urine pH Ur Specific [place] Urine Protein Urine Glucose (UA) Urine Ketones Urine Blood Urine Nitrite Urine Bilirubin Urine Urobilinogen Ur Leukocyte Esterase IMP: Acute Brainstem CVA S/P Right Hemicoletomy due to Acute Lower Diverticular GI Bleed Acute Blood Loss Anemia Acute Respiratory Failure Pneumonia likely aspiration HTN DM CKD C diff Ag (+) PLAN: - Antibiotics per ID - Enteral feeds as tolerated - DVT/GI prophylaxis - Vent Floor Overall prognosis for meaningful recovery is grave would favor comfort measures only Dr Agosto
[2015-08-03] MEDS: INSULIN DETEMIR SQ SCH (23:07)
[2015-08-04] MEDS: METRONIDAZOLE 500 MG PREMIXED 100 ML IVPB SCH ×3 (02:06→18:11)
[2015-08-04] MEDS: ACETAMINOPHEN 650 MG/20.3 ML ORAL SOLUTION (CUPS) GT PRN ×2 (02:15→22:25)
[2015-08-04] MEDS: INSULIN ASPART SQ SCH ×5 (06:50→23:59)
[2015-08-04] MEDS: INSULIN SLIDING SCALE (NOVOLOG) 1 VIAL SQ SCH ×4 (06:51→23:46)
[2015-08-04] MEDS: VANCOMYCIN 250 MG/5 ML ORAL SOLUTION GT SCH ×4 (06:52→23:48)
[2015-08-04 07:34] LABS: BASOPHIL 0.5 % (0-2.0); MCH 28.9 pg (25.7-33.7); MCHC 32.2 g/dl (32.0-35.9); MEAN PLT VOLUME 9.5 fl (7.5-11.1); NEUTROPHILS 79.5 % (42.8-82.8); PLATELET COUNT 182 K/MM3 (134-434); RDW 14.3 % (11.9-15.9); WHITE BLOOD COUNT 13.3 K/mm3 (4.0-10.0)
[2015-08-04] MEDS: CEFTRIAXONE 1 GM in DEXTROSE 5%-WATER - 50 ML IVPB SCH (09:47)
[2015-08-04] MEDS: AMINO ACIDS/PROTEIN HYDROLYS SUGAR-FREE 30 ML PACKET GT SCH (09:53)
[2015-08-04] MEDS: MULTIVITAMINS THERAPEUTIC GT SCH (09:53)
[2015-08-04] MEDS: CHLORHEXIDINE GLUCONATE 0.12% 15ML CUP MM SCH ×2 (09:53→21:49)
[2015-08-04] MEDS: LISINOPRIL 20 MG TABLET (FP) GT SCH (09:56)
[2015-08-04] MEDS: PANTOPRAZOLE SOD 40 MG SUSPENSION PACKET GT SCH (09:57)
[2015-08-04] MEDS: METOPROLOL TARTRATE 50 MG TABLET (FP) GT SCH ×2 (09:57→21:49)
[2015-08-04] MEDS: amLODIPine BESYLATE 10 MG TABLET (FP) GT SCH (09:57)
--- NOTE | 2015-08-04 10:03 | PN ---
Progress Note (short form) - Note Progress Note: Pt seen and examined. unresponsive Current Medications Generic Name Dose Route Start Last Admin Trade Name Freq PRN Reason Stop Dose Admin Acetaminophen 650 mg 07/31/15 15:42 08/04/15 02:15 Tylenol Oral Solution - GT 650 mg Q6H PRN Administration FEVER Amino Acids 30 ml 08/01/15 10:00 08/04/15 09:53 Prostat Sugar-Free Packet - GT 30 ml DAILY KWAKU Administration Amlodipine Besylate 10 mg 08/01/15 10:00 08/04/15 09:57 Norvasc - GT 10 mg DAILY KWAKU Administration Chlorhexidine Gluconate 15 ml 07/28/15 22:00 08/04/15 09:53 Peridex - MM 15 ml BID KWAKU Administration Metronidazole 100 mls @ 100 mls/hr 08/02/15 07:45 08/04/15 09:47 Flagyl 500mg Premixed Ivpb - IVPB 100 mls/hr Q8H-IV KWAKU Administration Ceftriaxone Sodium 1 gm/ 50 mls @ 100 mls/hr 08/02/15 16:30 08/04/15 09:47 Dextrose IVPB 100 mls/hr DAILY KWAKU Administration Insulin Aspart 0 units 07/29/15 00:00 08/04/15 06:51 Novolog Flexpen Sliding Scale - SQ 4 units Q6HPO KWAKU Administration Protocol Insulin Aspart 2 units 08/03/15 11:45 08/04/15 06:50 Novolog Flexpen - SQ 2 units Q6H KWAKU Administration Insulin Detemir 20 units 08/02/15 22:00 08/03/15 23:07 Levemir Flexpen - SQ 20 units HS KWAKU Administration Lisinopril 20 mg 08/01/15 10:00 08/04/15 09:56 Prinivil - GT 20 mg DAILY KWAKU Administration Metoprolol Tartrate 5 mg 07/28/15 19:09 Lopressor Injection - IVPB Q6H PRN HYPERTENSION Metoprolol Tartrate 100 mg 07/31/15 22:00 08/04/15 09:57 Lopressor - GT 100 mg BID KWAKU Administration Multivitamins 5 ml 07/31/15 15:38 08/04/15 09:53 Thera-Plus - GT 5 ml DAILY KWAKU Administration Ondansetron HCl 4 mg 07/28/15 19:09 Zofran Injection - IVPB Q6H PRN NAUSEA Pantoprazole Sodium 40 mg 08/01/15 10:00 08/04/15 09:57 Protonix Packets For Oral Suspension - GT 40 mg DAILY KWAKU Administration Vancomycin HCl 125 mg 07/31/15 18:00 08/04/15 06:52 Vancomycin Oral Solution GT 125 mg Q6HPO KWAKU Administration Last Vital Signs Temp Pulse Resp BP Pulse Ox 100.1 F H 93 H 18 145/84 100 08/04/15 06:00 08/04/15 06:00 08/04/15 06:45 08/04/15 06:00 08/03/15 22:00 Intake & Output 08/01/15 08/02/15 08/03/15 08/04/15 23:59 23:59 23:59 23:59 Intake Total 2750 2750 3050 1300 Output Total 900 1080 1260 Balance 1850 1670 1790 1300 General- resting comfortable, pt does not withdraw to pain, +gag reflex HEENT- PERRL, no secretions from trach CV- S1S2 RRR no murmur/rub/gallops Lungs- coarse breath sounds B/L no wheezing/rhonchi/rales Abdomen- soft NT/ND +LUQ PEG no guarding/rebound +BS Extremities- B/L UE 2+ pitting edema Lines: trach/PEG/Rectal CBCD WBC 13.3 K/mm3 (4.0-10.0) H 08/04/15 06:00 RBC 2.95 M/mm3 (4.00-5.60) L 08/04/15 06:00 Hgb 8.5 GM/dL (11.7-16.9) L 08/04/15 06:00 Hct 26.6 % (35.4-49) L 08/04/15 06:00 MCV 90.0 fl (80-96) 08/04/15 06:00 MCHC 32.2 g/dl (32.0-35.9) 08/04/15 06:00 RDW 14.3 % (11.9-15.9) 08/04/15 06:00 Plt Count 182 K/MM3 (134-434) 08/04/15 06:00 MPV 9.5 fl (7.5-11.1) 08/04/15 06:00 CMP Sodium 151 mmol/L (136-145) H 08/04/15 06:00 Potassium 3.9 mmol/L (3.5-5.1) 07/29/15 07:00 Chloride 113 mmol/L (98-107) H 07/29/15 07:00 Carbon Dioxide 33 mmol/L (21-32) H 07/29/15 07:00 Anion Gap 4 (8-16) L 07/29/15 07:00 BUN 26 mg/dL (7-18) H 07/29/15 07:00 Creatinine 0.9 mg/dL (0.6-1.3) 07/29/15 07:00 Creat Clearance w eGFR > 60 (>60) 07/29/15 07:00 Calcium 9.5 mg/dL (8.5-10.1) 07/29/15 07:00 Total Bilirubin 0.3 mg/dL (0.2-1.0) 07/29/15 07:00 AST 25 U/L (15-37) 07/29/15 07:00 ALT 36 U/L (12-78) D 07/29/15 07:00 Alkaline Phosphatase 104 U/L (45-117) 07/29/15 07:00 Total Protein 7.0 g/dl (6.4-8.2) 07/29/15 07:00 Albumin 2.6 g/dl (3.4-5.0) L 07/29/15 07:00 Microbiology 08/02/15 19:00 Urine Culture - Final Urine - Urine Schwartz NO GROWTH OBTAINED 07/30/15 18:30 Blood Culture - Preliminary Blood - Peripheral Venous NO GROWTH OBTAINED AFTER 96 HOURS, INCUBATION TO CONTINUE FOR 1 DAYS. 07/30/15 18:30 Blood Culture - Preliminary Blood - Peripheral Venous NO GROWTH OBTAINED AFTER 96 HOURS, INCUBATION TO CONTINUE FOR 1 DAYS. 08/02/15 17:20 Blood Culture - Preliminary Blood - Peripheral Venous NO GROWTH OBTAINED AFTER 24 HOURS, INCUBATION TO CONTINUE FOR 4 DAYS. 08/02/15 17:20 Blood Culture - Preliminary Blood - Peripheral Venous NO GROWTH OBTAINED AFTER 24 HOURS, INCUBATION TO CONTINUE FOR 4 DAYS. 08/02/15 22:55 Clostridium difficile Antigen (MACHO) - Final Stool Clostridium difficile Toxin Assay - Final A/P 75 yo M with PMH HTN, DM, inguinal hernia a/w BRBPR and melena with multiple syncopal episodes. 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 Neuro- Anoxic brain injury s/p brainstem CVA- +brainstem functioning (pupils reactive, breathing over the vent). Not requiring medications for agitation. unresponsive. 2. CV- HTN- controlled. will cont to monitor and titrate medications accordingly. Cont lisinopril/metoprolol/norvasc 3. Respiratory- s/p trach. saturating well. Vent dependent 4. Abdomen- s/p R hemicolectomy. s/p PEG tolerating tube feeds. Glucerna @ 50cc/ H. 5. Hypernatremia- trending up. increase water flushes at 350cc Q6H, water deficit 3.16 L 6. ID- C. diff -Tmax 101.8. multiple spikes. stable leukocytosis. Cdiff negative. Evaluated by ID and started on Vanco and Ceftriaxone Day3. Cont Flagyl day 3. on vanco po day 19. possible d/c po vanco? will discuss with ID 7. Endo- DM- uncontrolled. possible due to infection. Will increase lantus to 25units and novolog 3units Q6H. cont FS, ISS 8. DVT/GI PPx- on scd, protonix 9. Poor prognosis, DNR. Pt will require rn long term care placement once medically stable.
--- NOTE | 2015-08-04 12:54 | WOUND ---
Wound Assessment [facility] Reason for visit: Wound Assessment Request for consultation: by [facility] Interdisciplinary Wound Care Team Initial Encounter: No Previous Encounter: Yes - History of Present Illness Past Medical History Cardio/Vascular HTN Endocrine Diabetes Mellitus Past Surgical History Past Surgical History Hernia Repair Social History Smoking history Never smoked Have you smoked in the past 12 No months Hx Alcohol Use No Current Medications Generic Name Dose Route Start Last Admin Trade Name Freq PRN Reason Stop Dose Admin Acetaminophen 650 mg 07/31/15 15:42 08/04/15 02:15 Tylenol Oral Solution - GT 650 mg Q6H PRN Administration FEVER Amino Acids 30 ml 08/01/15 10:00 08/04/15 09:53 Prostat Sugar-Free Packet - GT 30 ml DAILY KWAKU Administration Amlodipine Besylate 10 mg 08/01/15 10:00 08/04/15 09:57 Norvasc - GT 10 mg DAILY KWAKU Administration Chlorhexidine Gluconate 15 ml 07/28/15 22:00 08/04/15 09:53 Peridex - MM 15 ml BID KWAKU Administration Metronidazole 100 mls @ 100 mls/hr 08/02/15 07:45 08/04/15 09:47 Flagyl 500mg Premixed Ivpb - IVPB 100 mls/hr Q8H-IV KWAKU Administration Ceftriaxone Sodium 1 gm/ 50 mls @ 100 mls/hr 08/02/15 16:30 08/04/15 09:47 Dextrose IVPB 100 mls/hr DAILY KWAKU Administration Insulin Aspart 0 units 07/29/15 00:00 08/04/15 12:13 Novolog Flexpen Sliding Scale - SQ 4 units Q6HPO KWAKU Administration Protocol Insulin Aspart 3 units 08/04/15 11:26 08/04/15 12:24 Novolog Flexpen - SQ Not Given Q6HPO KWAKU Insulin Detemir 25 units 08/04/15 11:26 Levemir Flexpen - SQ [facility] Lisinopril 20 mg 08/01/15 10:00 08/04/15 09:56 Prinivil - GT 20 mg DAILY KWAKU Administration Metoprolol Tartrate 5 mg 07/28/15 19:09 Lopressor Injection - IVPB Q6H PRN HYPERTENSION Metoprolol Tartrate 100 mg 07/31/15 22:00 08/04/15 09:57 Lopressor - GT 100 mg BID KWAKU Administration Multivitamins 5 ml 07/31/15 15:38 08/04/15 09:53 Thera-Plus - GT 5 ml DAILY KWAKU Administration Ondansetron HCl 4 mg 07/28/15 19:09 Zofran Injection - IVPB Q6H PRN NAUSEA Pantoprazole Sodium 40 mg 08/01/15 10:00 08/04/15 09:57 Protonix Packets For Oral Suspension - GT 40 mg DAILY KWAKU Administration Vancomycin HCl 125 mg 07/31/15 18:00 08/04/15 12:14 Vancomycin Oral Solution GT 125 mg Q6HPO KWAKU Administration Allergies Allergy/AdvReac Type Severity Reaction Status Date / Time No Known Allergies Allergy Verified 06/26/15 21:31 Physical Exam - Objective Last Vital Signs Temp Pulse Resp BP Pulse Ox 100.1 F H 97 H 20 145/84 98 08/04/15 06:00 08/04/15 10:07 08/04/15 10:07 08/04/15 06:00 08/04/15 10:07 Laboratory Last Values WBC 13.3 K/mm3 (4.0-10.0) H 08/04/15 06:00 Corrected WBC (auto) Cancelled 06/26/15 21:50 RBC 2.95 M/mm3 (4.00-5.60) L 08/04/15 06:00 Hgb 8.5 GM/dL (11.7-16.9) L 08/04/15 06:00 Hct 26.6 % (35.4-49) L 08/04/15 06:00 MCV 90.0 fl (80-96) 08/04/15 06:00 MCHC 32.2 g/dl (32.0-35.9) 08/04/15 06:00 RDW 14.3 % (11.9-15.9) 08/04/15 06:00 Plt Count 182 K/MM3 (134-434) 08/04/15 06:00 MPV 9.5 fl (7.5-11.1) 08/04/15 06:00 Add Manual Diff Cancelled 06/26/15 21:50 Neutrophils % 79.5 % (42.8-82.8) 08/04/15 06:00 Lymphocytes % 11.7 % (8-40) 08/04/15 06:00 Monocytes % 4.3 % (3.8-10.2) 08/04/15 06:00 Eosinophils % 4.0 % (0-4.5) 08/04/15 06:00 Basophils % 0.5 % (0-2.0) 08/04/15 06:00 Band Neutrophils 6.0 % (0-10) 06/28/15 09:35 Differential Comment Manual diff done 06/28/15 09:35 Smudge Cells Cancelled 06/26/15 21:50 Platelet Estimate Slt decreased (NORMAL) 06/28/15 09:35 Platelet Comment No clumping noted 06/28/15 09:35 Platelet Comment No clotting detected 06/28/15 09:35 Normal RBC Morphology Cancelled 06/26/15 21:50 RBC Morphology Cancelled 06/26/15 21:50 INR 1.30 (0.86-1.14) H 07/29/15 10:00 PTT (Actin FS) 28.6 SECONDS (23.5-38.3) 07/23/15 05:20 Anticoagulation Therapy Y 07/11/15 07:07 Puncture Site Right radial 07/11/15 07:07 ABG pH 7.44 (7.35-7.45) 07/11/15 07:07 ABG pCO2 at Pt Temp 42.1 mmHg (35-45) 07/11/15 07:07 ABG pO2 at Pt Temp 113.0 mmHg (70-100) H D 07/11/15 07:07 ABG HCO3 27.8 meq/L (22-26) H 07/11/15 07:07 ABG O2 Sat (Measured) 99.1 % (90-98.9) H 07/11/15 07:07 ABG O2 Content 13.3 % vol (15-22) L 07/11/15 07:07 ABG Base Excess 3.8 meq/l (-2-2) H 07/11/15 07:07 Izaiah Test Positive 07/11/15 07:07 O2 Delivery Device Ventilator 07/11/15 07:07 Oxygen Flow Rate 30% 07/11/15 07:07 Vent Mode A/c 07/11/15 07:07 Vent Rate 10 07/11/15 07:07 Mechanical Rate Yes 07/11/15 07:07 PEEP 5.0 cmH2O 07/11/15 07:07 Pressure Support Vent 500 09/13/15 07:07 Sodium 151 mmol/L (136-145) H 08/04/15 06:00 Potassium 3.9 mmol/L (3.5-5.1) 07/29/15 07:00 Chloride 113 mmol/L (98-107) H 07/29/15 07:00 Carbon Dioxide 33 mmol/L (21-32) H 07/29/15 07:00 Anion Gap 4 (8-16) L 07/29/15 07:00 BUN 26 mg/dL (7-18) H 07/29/15 07:00 Creatinine 0.9 mg/dL (0.6-1.3) 07/29/15 07:00 Creat Clearance w eGFR > 60 (>60) 07/29/15 07:00 POC Glucometer 212 UNITS (()) 08/04/15 12:10 Random Glucose 261 mg/dL (74-106) H D 07/29/15 07:00 Lactic Acid 1.606 mmol/L (0.4-2.0) 06/27/15 10:10 Calcium 9.5 mg/dL (8.5-10.1) 07/29/15 07:00 Phosphorus 3.5 mg/dL (2.5-4.9) 07/29/15 07:00 Magnesium 2.2 mg/dL (1.8-2.4) 07/29/15 07:00 Total Bilirubin 0.3 mg/dL (0.2-1.0) 07/29/15 07:00 AST 25 U/L (15-37) 07/29/15 07:00 ALT 36 U/L (12-78) D 07/29/15 07:00 Alkaline Phosphatase 104 U/L (45-117) 07/29/15 07:00 Creatine Kinase 62 IU/L (38-174) 06/28/15 09:35 Creatine Kinase Index 0.7 % (0.0-5.0) 06/26/15 21:50 CK-MB (CK-2) 1.077 ng/ml (0.3-4.0) 06/26/15 21:50 CK-MB (CK-2) Rel Index Cancelled 06/26/15 21:50 Troponin I 0.07 ng/ml (0.03-0.5) D 07/09/15 05:00 Total Protein 7.0 g/dl (6.4-8.2) 07/29/15 07:00 Albumin 2.6 g/dl (3.4-5.0) L 07/29/15 07:00 Lipase 140 U/L (73-293) 06/26/15 21:50 Prolactin 19.8 ng/ml (4.0-15.2) H 07/02/15 05:20 Urine Color Yellow 08/02/15 17:30 Urine Appearance Cloudy 08/02/15 17:30 Urine pH 5.0 (5.0-8.0) 08/02/15 17:30 Ur Specific Thor 1.029 (1.001-1.035) 08/02/15 17:30 Urine Protein Negative (NEGATIVE) 08/02/15 17:30 Urine Glucose (UA) 1+ (NEGATIVE) H 08/02/15 17:30 Urine Ketones Negative (NEGATIVE) 08/02/15 17:30 Urine Blood Negative (NEGATIVE) 08/02/15 17:30 Urine Nitrite Negative (NEGATIVE) 08/02/15 17:30 Urine Bilirubin Negative (NEGATIVE) 08/02/15 17:30 Urine Urobilinogen Negative E.U./dl (0.2-1.0) 08/02/15 17:30 Ur Leukocyte Esterase Negative (NEGATIVE) 08/02/15 17:30 Urine RBC 180 /hpf (0-3) 07/27/15 15:55 Urine WBC 5 /hpf (3-5) 07/27/15 15:55 Ur Epithelial Cells Rare /hpf (FEW) 07/27/15 15:55 Urine Mucus Rare 07/27/15 15:55 Stool Occult Blood Negative (NEGATIVE) 07/02/15 12:00 Hepatitis C Ab (EIA) <0.1 s/co ratio (0.0-0.9) 07/03/15 05:15 Blood Type O POSITIVE 07/22/15 11:54 Antibody Screen Negative 07/22/15 11:54 Crossmatch See Detail 06/30/15 15:15 Crossmatch IS Only See Detail 06/26/15 21:50 Spec Expiration Date 06/26/15 21:50 Microbiology 08/02/15 19:00 Urine - Urine Schwartz Urine Culture - Final NO GROWTH OBTAINED 07/30/15 18:30 Blood - Peripheral Venous Blood Culture - Preliminary NO GROWTH OBTAINED AFTER 96 HOURS, INCUBATION TO CONTINUE FOR 1 DAYS. 07/30/15 18:30 Blood - Peripheral Venous Blood Culture - Preliminary NO GROWTH OBTAINED AFTER 96 HOURS, INCUBATION TO CONTINUE FOR 1 DAYS. 08/02/15 17:20 Blood - Peripheral Venous Blood Culture - Preliminary NO GROWTH OBTAINED AFTER 24 HOURS, INCUBATION TO CONTINUE FOR 4 DAYS. 08/02/15 17:20 Blood - Peripheral Venous Blood Culture - Preliminary NO GROWTH OBTAINED AFTER 24 HOURS, INCUBATION TO CONTINUE FOR 4 DAYS. 08/02/15 22:55 Stool Clostridium difficile Antigen (MACHO) - Final 08/02/15 22:55 Stool Clostridium difficile Toxin Assay - Final 07/27/15 19:00 Blood - Peripheral Venous Blood Culture - Final NO GROWTH AFTER 5 DAYS INCUBATION 07/27/15 19:00 Blood - Peripheral Venous Blood Culture - Final NO GROWTH AFTER 5 DAYS INCUBATION 07/27/15 19:30 Stool Clostridium difficile (PCR) - Final 07/27/15 15:55 Urine - Urine Schwartz Urine Culture - Final NO GROWTH OBTAINED 07/24/15 21:50 Sputum - Endotrachea Suction/Ventilator Gram Stain - Final 07/24/15 21:50 Sputum - Endotrachea Suction/Ventilator Sputum Culture - Preliminary NORMAL RESPIRATORY ARMAND 07/15/15 11:30 Blood - Peripheral Venous Blood Culture - Final NO GROWTH AFTER 5 DAYS INCUBATION 07/15/15 11:30 Blood - Peripheral Venous Blood Culture - Final NO GROWTH AFTER 5 DAYS INCUBATION 07/10/15 10:30 Stool Stool Culture - Final NO SALMONELLA, SHIGELLA, YERSINIA, CAMPYLOBACTER OR E COLI 0157 ISOLATED 07/10/15 10:35 Stool Clostridium difficile Antigen (MACHO) - Final 07/10/15 10:35 Stool Clostridium difficile Toxin Assay - Final 07/10/15 10:30 Stool Gram Stain - Final 07/02/15 18:00 Blood - Peripheral Venous Blood Culture - Final NO GROWTH AFTER 5 DAYS INCUBATION 07/02/15 18:00 Blood - Peripheral Venous Blood Culture - Final NO GROWTH AFTER 5 DAYS INCUBATION 06/28/15 09:32 Blood - Peripheral Venous Blood Culture - Final NO GROWTH AFTER 5 DAYS INCUBATION 06/28/15 09:32 Blood - Peripheral Venous Blood Culture - Final NO GROWTH AFTER 5 DAYS INCUBATION 06/28/15 17:30 Sputum - Endotrachea Suction/Ventilator Gram Stain - Final 06/28/15 17:30 Sputum - Endotrachea Suction/Ventilator Sputum Culture - Final NORMAL RESPIRATORY ARMAND 06/27/15 20:30 Urine - Urine Schwartz Urine Culture - Final NO GROWTH OBTAINED 06/28/15 10:00 Urine For Antigen Detection Legionella Antigen - Final 06/28/15 10:00 Urine For Antigen Detection Streptococcus pneumoniae Antigen (M - Final Wounds - Wound Wound #1 Type of wound: Yes: Pressure ulcer Stage: III (healing) Location/laterality: sacrum across the midline Wound size: 5cmL x 9cm W x 05cmD Thickness: Partial Undermining: No Tunneling: No Drainage/exudate: No Wound bed tissue: Yes: Erythematous Wound edges color: Erythematous Wound edges raised: No Wound edges rolled: No Wound edges contracted: No Pain: No Surrounding tissue to 4cm: Yes: Healthy Wound #2 Type of wound: Yes: Pressure ulcer Stage: II Location/laterality: left ear Wound size: 1.5cmL x .75cmW x 0.1cmD Thickness: Partial Undermining: No Tunneling: No Drainage/exudate: No Wound bed tissue: Yes: Erythematous Wound edges color: Normally pigmented Wound edges raised: No Wound edges rolled: No Wound edges contracted: No Pain: No Surrounding tissue to 4cm: Yes: Healthy Assessment/Plan Wound #1 Diagnosis: Pressure ulcer Wound specific intervention: Optifoam sacral dressing Wound #2 Diagnosis: Pressure ulcer Wound specific intervention: apply silvadene to affected area daily Impediments to healing: Limited mobility, Unable to self-position in bed, Hypoalbunemia, Nutritional deficiencies, Incontinence of urine, Incontinence of bowel Nutrition/Dietary supplements/vitamins: No recommendations Support Surface: Accucair Overlay HOB elevation: 30 degrees Off-loading: Turning/repositioning q2h, Elevate heels off bed with pillows Incontinence management: Schwartz in place, Rectal tube in place, Avoid diapers; if must be used, do not secure around patient
--- NOTE | 2015-08-04 14:39 | PN ---
Progress Note (short form) - Note Progress Note: PULMONARY CHART REVIEWED PATIENT EXAMINED VENT SETTINGS NOTED NO OVERALL CHANGE IN CLINICAL CONDITION A/P Respiratory Failure s/p Tracheostomy Acute CVA/Anoxic Brain Injury S/P Acute Lower Diverticular GI Bleed Acute Blood Loss Anemia s/p Pneumonia HTN DM CKD + C Diff Ag Fever - continue vent support on ac mode no weaning potential at this time. - enteral feeds - DVT/GI prophylaxis - cultures - Prognosis poor R VIN HERRERA
[2015-08-04] MEDS: INSULIN DETEMIR SQ SCH (21:48)
[2015-08-05] MEDS: METRONIDAZOLE 500 MG PREMIXED 100 ML IVPB SCH ×2 (01:27→10:22)
[2015-08-05] MEDS: INSULIN ASPART SQ SCH ×4 (05:46→23:38)
[2015-08-05] MEDS: INSULIN SLIDING SCALE (NOVOLOG) 1 VIAL SQ SCH ×4 (05:47→23:37)
[2015-08-05] MEDS: VANCOMYCIN 250 MG/5 ML ORAL SOLUTION GT SCH ×4 (05:47→23:38)
[2015-08-05 08:10] LABS: BASOPHIL 0.6 % (0-2.0); EOSINOPHIL 3.2 % (0-4.5); MCH 28.9 pg (25.7-33.7); MCHC 32.8 g/dl (32.0-35.9); MEAN PLT VOLUME 8.8 fl (7.5-11.1); NEUTROPHILS 81.7 % (42.8-82.8); PLATELET COUNT 184 K/MM3 (134-434); RDW 14.2 % (11.9-15.9); WHITE BLOOD COUNT 13.1 K/mm3 (4.0-10.0)
[2015-08-05] MEDS: LISINOPRIL 20 MG TABLET (FP) GT SCH (10:21)
[2015-08-05] MEDS: CHLORHEXIDINE GLUCONATE 0.12% 15ML CUP MM SCH ×2 (10:21→21:46)
[2015-08-05] MEDS: amLODIPine BESYLATE 10 MG TABLET (FP) GT SCH (10:21)
[2015-08-05] MEDS: METOPROLOL TARTRATE 50 MG TABLET (FP) GT SCH ×2 (10:21→21:45)
[2015-08-05] MEDS: AMINO ACIDS/PROTEIN HYDROLYS SUGAR-FREE 30 ML PACKET GT SCH (10:22)
[2015-08-05] MEDS: PANTOPRAZOLE SOD 40 MG SUSPENSION PACKET GT SCH (10:22)
[2015-08-05] MEDS: MULTIVITAMINS THERAPEUTIC GT SCH (10:23)
--- NOTE | 2015-08-05 10:34 | PN ---
Progress Note (short form) - Note Progress Note: Pt seen and examined. unresponsive Current Medications Generic Name Dose Route Start Last Admin Trade Name Freq PRN Reason Stop Dose Admin Acetaminophen 650 mg 07/31/15 15:42 08/04/15 22:25 Tylenol Oral Solution - GT 650 mg Q6H PRN Administration FEVER Amino Acids 30 ml 08/01/15 10:00 08/05/15 10:22 Prostat Sugar-Free Packet - GT 30 ml DAILY KWAKU Administration Amlodipine Besylate 10 mg 08/01/15 10:00 08/05/15 10:21 Norvasc - GT 10 mg DAILY KWAKU Administration Chlorhexidine Gluconate 15 ml 07/28/15 22:00 08/05/15 10:21 Peridex - MM 15 ml BID KWAKU Administration Metronidazole 100 mls @ 100 mls/hr 08/02/15 07:45 08/05/15 10:22 Flagyl 500mg Premixed Ivpb - IVPB 100 mls/hr Q8H-IV KWAKU Administration Ceftriaxone Sodium 1 gm/ 50 mls @ 100 mls/hr 08/02/15 16:30 08/04/15 09:47 Dextrose IVPB 100 mls/hr DAILY KWAKU Administration Insulin Aspart 0 units 07/29/15 00:00 08/05/15 05:47 Novolog Flexpen Sliding Scale - SQ 2 units Q6HPO KWAKU Administration Protocol Insulin Aspart 3 units 08/04/15 11:26 08/05/15 05:46 Novolog Flexpen - SQ 3 units Q6HPO KWAKU Administration Insulin Detemir 25 units 08/04/15 11:26 08/04/15 21:48 Levemir Flexpen - SQ 25 units HS KWAKU Administration Lisinopril 20 mg 08/01/15 10:00 08/05/15 10:21 Prinivil - GT 20 mg DAILY KWAKU Administration Metoprolol Tartrate 5 mg 07/28/15 19:09 Lopressor Injection - IVPB Q6H PRN HYPERTENSION Metoprolol Tartrate 100 mg 07/31/15 22:00 08/05/15 10:21 Lopressor - GT 100 mg BID KWAKU Administration Multivitamins 5 ml 07/31/15 15:38 08/05/15 10:23 Thera-Plus - GT 5 ml DAILY KWAKU Administration Ondansetron HCl 4 mg 07/28/15 19:09 Zofran Injection - IVPB Q6H PRN NAUSEA Pantoprazole Sodium 40 mg 08/01/15 10:00 08/05/15 10:22 Protonix Packets For Oral Suspension - GT 40 mg DAILY KWAKU Administration Vancomycin HCl 125 mg 07/31/15 18:00 08/05/15 05:47 Vancomycin Oral Solution GT 125 mg Q6HPO KWAKU Administration Last Vital Signs Temp Pulse Resp BP Pulse Ox 98.4 F 99 H 16 151/89 100 08/05/15 06:00 08/05/15 10:13 08/05/15 10:13 08/05/15 10:13 08/04/15 22:00 Intake & Output 08/02/15 08/03/15 08/04/15 08/05/15 23:59 23:59 23:59 23:59 Intake Total 2750 3050 2650 Output Total 1080 1260 800 Balance 1670 1790 1850 General- resting comfortable, pt does not withdraw to pain, +gag reflex HEENT- PERRL, no secretions from trach CV- S1S2 RRR no murmur/rub/gallops Lungs- coarse breath sounds B/L no wheezing/rhonchi/rales Abdomen- soft NT/ND +LUQ PEG no guarding/rebound +BS Extremities- B/L UE 2+ pitting edema Lines: trach/PEG/Rectal CBCD WBC 13.1 K/mm3 (4.0-10.0) H 08/05/15 08:00 RBC 2.83 M/mm3 (4.00-5.60) L 08/05/15 08:00 Hgb 8.2 GM/dL (11.7-16.9) L 08/05/15 08:00 Hct 24.9 % (35.4-49) L 08/05/15 08:00 MCV 88.0 fl (80-96) 08/05/15 08:00 MCHC 32.8 g/dl (32.0-35.9) 08/05/15 08:00 RDW 14.2 % (11.9-15.9) 08/05/15 08:00 Plt Count 184 K/MM3 (134-434) 08/05/15 08:00 MPV 8.8 fl (7.5-11.1) 08/05/15 08:00 CMP Sodium 145 mmol/L (136-145) 08/05/15 Unknown Potassium 3.9 mmol/L (3.5-5.1) 07/29/15 07:00 Chloride 113 mmol/L (98-107) H 07/29/15 07:00 Carbon Dioxide 33 mmol/L (21-32) H 07/29/15 07:00 Anion Gap 4 (8-16) L 07/29/15 07:00 BUN 26 mg/dL (7-18) H 07/29/15 07:00 Creatinine 0.9 mg/dL (0.6-1.3) 07/29/15 07:00 Creat Clearance w eGFR > 60 (>60) 07/29/15 07:00 Calcium 9.5 mg/dL (8.5-10.1) 07/29/15 07:00 Total Bilirubin 0.3 mg/dL (0.2-1.0) 07/29/15 07:00 AST 25 U/L (15-37) 07/29/15 07:00 ALT 36 U/L (12-78) D 07/29/15 07:00 Alkaline Phosphatase 104 U/L (45-117) 07/29/15 07:00 Total Protein 7.0 g/dl (6.4-8.2) 07/29/15 07:00 Albumin 2.6 g/dl (3.4-5.0) L 07/29/15 07:00 Microbiology 07/30/15 18:30 Blood Culture - Final Blood - Peripheral Venous NO GROWTH AFTER 5 DAYS INCUBATION 07/30/15 18:30 Blood Culture - Final Blood - Peripheral Venous NO GROWTH AFTER 5 DAYS INCUBATION 08/02/15 17:20 Blood Culture - Preliminary Blood - Peripheral Venous NO GROWTH OBTAINED AFTER 48 HOURS, INCUBATION TO CONTINUE FOR 3 DAYS. 08/02/15 17:20 Blood Culture - Preliminary Blood - Peripheral Venous NO GROWTH OBTAINED AFTER 48 HOURS, INCUBATION TO CONTINUE FOR 3 DAYS. 08/02/15 19:00 Urine Culture - Final Urine - Urine Schwartz NO GROWTH OBTAINED A/P 75 yo M with PMH HTN, DM, inguinal hernia a/w BRBPR and melena with multiple syncopal episodes. 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 Neuro- Anoxic brain injury s/p brainstem CVA- +brainstem functioning (pupils reactive, breathing over the vent). Not requiring medications for agitation. unresponsive. 2. CV- HTN- controlled. will cont to monitor and titrate medications accordingly. Cont lisinopril/metoprolol/norvasc 3. Respiratory- s/p trach. saturating well. Vent dependent 4. Abdomen- s/p R hemicolectomy. s/p PEG tolerating tube feeds. Glucerna @ 50cc/ H. 5. Hypernatremia- resolved. Cont water flushes at 350cc Q6H, monitor 6. ID- C. diff -Tmax 100.3. stable leukocytosis. Cdiff negative. Cont Flagyl, Vanco and Ceftriaxone Day4. on vanco po day 20. will discuss with ID about de- esculation of abx as repeat BCx, Ucx and cdiff negative, 7. Endo- DM- improved. possible due to infection. insulin regimen adjusted yesterday. will cont to monitor for now. COnt lantus 25units and novolog 3units Q6H. cont FS, ISS 8. DVT/GI PPx- on scd, protonix 9. Poor prognosis, DNR. Pt will require intermediate accountant placement once medically stable, possibly when pt is afebrile 24H off IV Abx
[2015-08-05] MEDS: CEFTRIAXONE 1 GM in DEXTROSE 5%-WATER - 50 ML IVPB SCH (12:17)
--- NOTE | 2015-08-05 13:46 | PN ---
Progress Note (short form) - Note Progress Note: PULMONARY Remains vented, poorly responsive. Low grade fevers. Last Vital Signs Temp Pulse Resp BP Pulse Ox 100.3 F H 99 H 14 151/89 100 08/05/15 10:45 08/05/15 10:13 08/05/15 10:25 08/05/15 10:13 08/04/15 22:00 Gen: intubated, poorly responsive Heart: RRR Lung: decreased breath sounds at the bases Abd: soft, nontender, dressing dry Ext: + edema CBC, BMP 08/05/15 08:00 08/05/15 Unknown Active Medications Acetaminophen (Tylenol Oral Solution -) 650 mg GT Q6H PRN PRN Reason: FEVER Last Admin: 08/04/15 22:25 Dose: 650 mg Amino Acids (Prostat Sugar-Free Packet -) 30 ml GT DAILY [facility] Last Admin: 08/05/15 10:22 Dose: 30 ml Amlodipine Besylate (Norvasc -) 10 mg GT DAILY [facility] Last Admin: 08/05/15 10:21 Dose: 10 mg Chlorhexidine Gluconate (Peridex -) 15 ml MM BID [facility] Last Admin: 08/05/15 10:21 Dose: 15 ml Metronidazole (Flagyl 500mg Premixed Ivpb -) 100 mls @ 100 mls/hr IVPB Q8H-IV [facility] Last Admin: 08/05/15 10:22 Dose: 100 mls/hr Ceftriaxone Sodium 1 gm/ (Dextrose) 50 mls @ 100 mls/hr IVPB DAILY [facility] Last Admin: 08/05/15 12:17 Dose: 100 mls/hr Insulin Aspart (Novolog Flexpen Sliding Scale -) 0 units SQ Q6HPO [facility] PRN Reason: Protocol Last Admin: 08/05/15 12:22 Dose: 4 units Insulin Aspart (Novolog Flexpen -) 3 units SQ Q6HPO [facility] Last Admin: 08/05/15 12:23 Dose: 3 units Insulin Detemir (Levemir Flexpen -) 25 units SQ HS [facility] Last Admin: 08/04/15 21:48 Dose: 25 units Lisinopril (Prinivil -) 20 mg GT DAILY [facility] Last Admin: 08/05/15 10:21 Dose: 20 mg Metoprolol Tartrate (Lopressor Injection -) 5 mg IVPB Q6H PRN PRN Reason: HYPERTENSION Metoprolol Tartrate (Lopressor -) 100 mg GT BID [facility] Last Admin: 08/05/15 10:21 Dose: 100 mg Multivitamins (Thera-Plus -) 5 ml GT DAILY [facility] Last Admin: 08/05/15 10:23 Dose: 5 ml Ondansetron HCl (Zofran Injection -) 4 mg IVPB Q6H PRN PRN Reason: NAUSEA Pantoprazole Sodium (Protonix Packets For Oral Suspension -) 40 mg GT DAILY [facility] Last Admin: 08/05/15 10:22 Dose: 40 mg Vancomycin HCl (Vancomycin Oral Solution) 125 mg GT Q6HPO [facility] Last Admin: 08/05/15 12:17 Dose: 125 mg A/P Acute Respiratory Failure s/p Tracheostomy Acute CVA/Anoxic Brain Injury Acute Lower Diverticular GI Bleed Acute Blood Loss Anemia s/p Pneumonia HTN DM CKD + C Diff Ag Fever - antibiotics per ID - enteral feeds - DVT/GI prophylaxis - continue discussions with family regarding goals of care - poor prognosis for meaningful recovery
--- NOTE | 2015-08-05 14:32 | PN ---
Progress Note, Physician History of Present Illness: Unresponsive Low grade temps Cultures negative to date - Current Medication List Current Medications: Active Medications Acetaminophen (Tylenol Oral Solution -) 650 mg GT Q6H PRN PRN Reason: FEVER Last Admin: 08/04/15 22:25 Dose: 650 mg Amino Acids (Prostat Sugar-Free Packet -) 30 ml GT DAILY [facility] Last Admin: 08/05/15 10:22 Dose: 30 ml Amlodipine Besylate (Norvasc -) 10 mg GT DAILY [facility] Last Admin: 08/05/15 10:21 Dose: 10 mg Chlorhexidine Gluconate (Peridex -) 15 ml MM BID [facility] Last Admin: 08/05/15 10:21 Dose: 15 ml Metronidazole (Flagyl 500mg Premixed Ivpb -) 100 mls @ 100 mls/hr IVPB Q8H-IV [facility] Last Admin: 08/05/15 10:22 Dose: 100 mls/hr Ceftriaxone Sodium 1 gm/ (Dextrose) 50 mls @ 100 mls/hr IVPB DAILY [facility] Last Admin: 08/05/15 12:17 Dose: 100 mls/hr Insulin Aspart (Novolog Flexpen Sliding Scale -) 0 units SQ Q6HPO [facility] PRN Reason: Protocol Last Admin: 08/05/15 12:22 Dose: 4 units Insulin Aspart (Novolog Flexpen -) 3 units SQ Q6HPO [facility] Last Admin: 08/05/15 12:23 Dose: 3 units Insulin Detemir (Levemir Flexpen -) 25 units SQ HS [facility] Last Admin: 08/04/15 21:48 Dose: 25 units Lisinopril (Prinivil -) 20 mg GT DAILY [facility] Last Admin: 08/05/15 10:21 Dose: 20 mg Metoprolol Tartrate (Lopressor Injection -) 5 mg IVPB Q6H PRN PRN Reason: HYPERTENSION Metoprolol Tartrate (Lopressor -) 100 mg GT BID [facility] Last Admin: 08/05/15 10:21 Dose: 100 mg Multivitamins (Thera-Plus -) 5 ml GT DAILY [facility] Last Admin: 08/05/15 10:23 Dose: 5 ml Ondansetron HCl (Zofran Injection -) 4 mg IVPB Q6H PRN PRN Reason: NAUSEA Pantoprazole Sodium (Protonix Packets For Oral Suspension -) 40 mg GT DAILY [facility] Last Admin: 08/05/15 10:22 Dose: 40 mg Vancomycin HCl (Vancomycin Oral Solution) 125 mg GT Q6HPO [facility] Last Admin: 08/05/15 12:17 Dose: 125 mg - Objective Vital Signs: Vital Signs Temperature 100.3 F H 08/05/15 10:45 Pulse Rate 99 H 08/05/15 10:13 Respiratory Rate 14 08/05/15 10:25 Blood Pressure 151/89 08/05/15 10:13 O2 Sat by Pulse Oximetry (%) 100 08/04/15 22:00 Constitutional: Yes: No Distress Eyes: Yes: Conjunctiva Clear Cardiovascular: Yes: Regular Rate and Rhythm, S1, S2 Respiratory: Yes: Diminished Gastrointestinal: Yes: Normal Bowel Sounds, Soft. No: Tenderness Edema: Yes Edema: LLE: 1+, RLE: 1+ Labs: CBC, BMP 08/05/15 08:00 08/05/15 Unknown INR, PTT INR 1.30 (0.86-1.14) H 07/29/15 10:00 Assessment/Plan ? recurrent aspiration pneumonia Respiratory failure s/p Lower GI bleed + C difficile low grade fever Leukocytosis Azotemia D/C IV antibiotics, observe Continue vancomycin via GT for C difficile
[2015-08-05] MEDS: INSULIN DETEMIR SQ SCH (21:45)
[2015-08-06] MEDS: INSULIN ASPART SQ SCH ×4 (05:48→23:42)
[2015-08-06] MEDS: INSULIN SLIDING SCALE (NOVOLOG) 1 VIAL SQ SCH ×4 (05:48→23:43)
[2015-08-06] MEDS: VANCOMYCIN 250 MG/5 ML ORAL SOLUTION GT SCH ×4 (05:49→23:37)
[2015-08-06 08:33] LABS: BASOPHIL 0.4 % (0-2.0); EOSINOPHIL 2.7 % (0-4.5); MCH 29.1 pg (25.7-33.7); MEAN CELL VOLUME 88.3 fl (80-96); MEAN PLT VOLUME 9.4 fl (7.5-11.1); NEUTROPHILS 82.1 % (42.8-82.8); PLATELET COUNT 184 K/MM3 (134-434); RDW 14.1 % (11.9-15.9); WHITE BLOOD COUNT 12.2 K/mm3 (4.0-10.0)
[2015-08-06] MEDS: METOPROLOL TARTRATE 50 MG TABLET (FP) GT SCH ×2 (10:30→21:36)
[2015-08-06] MEDS: LISINOPRIL 20 MG TABLET (FP) GT SCH (10:30)
[2015-08-06] MEDS: MULTIVITAMINS THERAPEUTIC GT SCH (10:31)
[2015-08-06] MEDS: amLODIPine BESYLATE 10 MG TABLET (FP) GT SCH (10:31)
[2015-08-06] MEDS: CHLORHEXIDINE GLUCONATE 0.12% 15ML CUP MM SCH ×2 (10:32→21:37)
[2015-08-06] MEDS: PANTOPRAZOLE SOD 40 MG SUSPENSION PACKET GT SCH (10:32)
[2015-08-06] MEDS: AMINO ACIDS/PROTEIN HYDROLYS SUGAR-FREE 30 ML PACKET GT SCH (10:32)
--- NOTE | 2015-08-06 14:19 | PN ---
Progress Note (short form) - Note Progress Note: Subjective: trached .still unconscious off sedation . no events last night , no fever in last 24 hrs. Objective: Last Vital Signs Temp Pulse Resp BP Pulse Ox 98.1 F 82 23 138/84 95 08/06/15 06:45 08/06/15 04:42 08/06/15 11:10 08/06/15 04:42 08/05/15 14:34 Physical Exam: NAD, trached . does not open his eyes to sternal rub . CV: RRR, no MRG lungs:CTAB anteriorly ext: no edema on legs. abd: soft, NT, ND , nl BS neuro : unconscious,no facial droop , Labs: Laboratory Results - last 24 hr 08/05/15 08/05/15 08/06/15 18:24 23:32 05:45 WBC RBC Hgb Hct MCV MCHC RDW Plt Count MPV Neutrophils % Lymphocytes % Monocytes % Eosinophils % Basophils % Sodium POC Glucometer 245 205 177 08/06/15 08/06/15 06:00 11:10 WBC 12.2 H RBC 2.89 L Hgb 8.4 L Hct 25.5 L MCV 88.3 MCHC 33.0 RDW 14.1 Plt Count 184 MPV 9.4 Neutrophils % 82.1 Lymphocytes % 10.5 Monocytes % 4.3 Eosinophils % 2.7 Basophils % 0.4 Sodium 143 POC Glucometer 155 Microbiology 08/02/15 17:20 Blood Culture - Preliminary Blood - Peripheral Venous NO GROWTH OBTAINED AFTER 72 HOURS, INCUBATION TO CONTINUE FOR 2 DAYS. 08/02/15 17:20 Blood Culture - Preliminary Blood - Peripheral Venous NO GROWTH OBTAINED AFTER 72 HOURS, INCUBATION TO CONTINUE FOR 2 DAYS. Assessment/Plan: 5 yo M with PMH HTN, DM, inguinal hernia a/w BRBPR and melena with multiple syncopal episodes. Dx with persistent diverticular bleed with R hemicolectomy, course complicated with CVA now in the ICU unresponsive and anoxic brain injury had tracheostomy on 07/23. then transferred to floor 1- GI bleed, s/p colonoscopy and R hemicolectomy. no further bleed 2- Anoxic brain injury and CVA, now off sedation. s/p Trach 07/23. s/p PEG no improvement 3- continued fever . no fever for 24 hrs. ID recs appreciated. d/c IV abx. cont po vanco day 21 for c diff 4- uncontrolled HTN: better controlled now 5-hypernatremia : resolved. cont free water with TF 6- DM :stable . cont current regimen 7- nutrition :cont TF. at goal . free water . DNR bed search in progress, SPoke to CM and SW, not able to reach daughter Carole for placement options. can be placed if remains afebrile DNR daughter updated yesterday . will start d/c planning on Sunday 5 yo M with PMH HTN, DM, inguinal hernia a/w BRBPR and melena with multiple syncopal episodes. 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 Neuro- Anoxic brain injury s/p brainstem CVA- +brainstem functioning (pupils reactive, breathing over the vent). Not requiring medications for agitation. unresponsive. 2. CV- HTN- controlled. will cont to monitor and titrate medications accordingly. Cont lisinopril/metoprolol/norvasc 3. Respiratory- s/p trach. saturating well. Vent dependent 4. Abdomen- s/p R hemicolectomy. s/p PEG tolerating tube feeds. Glucerna @ 50cc/ H. 5. Hypernatremia- resolved. Cont water flushes at 350cc Q6H, monitor 6. ID- C. diff -Tmax 100.3. stable leukocytosis. Cdiff negative. Cont Flagyl, Vanco and Ceftriaxone Day4. on vanco po day 20. will discuss with ID about de- esculation of abx as repeat BCx, Ucx and cdiff negative, 7. Endo- DM- improved. possible due to infection. insulin regimen adjusted yesterday. will cont to monitor for now. COnt lantus 25units and novolog 3units Q6H. cont FS, ISS 8. DVT/GI PPx- on scd, protonix 9. Poor prognosis, DNR. Pt will require intermediate project manager placement once medically stable, possibly when pt is afebrile 24H off IV Abx
[2015-08-06] MEDS: INSULIN DETEMIR SQ SCH (21:37)
[2015-08-07] MEDS: INSULIN SLIDING SCALE (NOVOLOG) 1 VIAL SQ SCH ×3 (06:23→18:27)
[2015-08-07] MEDS: INSULIN ASPART SQ SCH ×3 (06:23→18:28)
[2015-08-07] MEDS: VANCOMYCIN 250 MG/5 ML ORAL SOLUTION GT SCH ×3 (06:24→18:36)
[2015-08-07 08:42] LABS: BASOPHIL 0.5 % (0-2.0); EOSINOPHIL 2.2 % (0-4.5); MCH 29.3 pg (25.7-33.7); MCHC 33.2 g/dl (32.0-35.9); MEAN CELL VOLUME 88.3 fl (80-96); MEAN PLT VOLUME 9.7 fl (7.5-11.1); NEUTROPHILS 82.8 % (42.8-82.8); PLATELET COUNT 202 K/MM3 (134-434); RDW 14.3 % (11.9-15.9)
[2015-08-07] MEDS: LISINOPRIL 20 MG TABLET (FP) GT SCH (09:40)
[2015-08-07] MEDS: amLODIPine BESYLATE 10 MG TABLET (FP) GT SCH (09:40)
[2015-08-07] MEDS: METOPROLOL TARTRATE 50 MG TABLET (FP) GT SCH ×2 (09:41→21:49)
[2015-08-07] MEDS: CHLORHEXIDINE GLUCONATE 0.12% 15ML CUP MM SCH ×2 (09:42→21:44)
[2015-08-07] MEDS: PANTOPRAZOLE SOD 40 MG SUSPENSION PACKET GT SCH (09:42)
[2015-08-07] MEDS: MULTIVITAMINS THERAPEUTIC GT SCH (09:42)
[2015-08-07] MEDS: AMINO ACIDS/PROTEIN HYDROLYS SUGAR-FREE 30 ML PACKET GT SCH (09:42)
--- NOTE | 2015-08-07 12:19 | PN ---
Progress Note (short form) - Note Progress Note: PULMONARY CHART REVIEWED PATIENT EXAMINED VENT SETTINGS NOTED LOW GRADE TEMP PERSISTS NO OVERALL CHANGE IN CLINICAL CONDITION A/P Respiratory Failure s/p Tracheostomy Acute CVA/Anoxic Brain Injury S/P Acute Lower Diverticular GI Bleed Acute Blood Loss Anemia s/p Pneumonia HTN DM CKD + C Diff Ag Fever - continue vent support on ac mode no weaning potential at this time. - enteral feeds - DVT/GI prophylaxis - cultures - Prognosis poor [facility]
[2015-08-07] MEDS: INSULIN DETEMIR SQ SCH (21:49)
--- NOTE | 2015-08-07 22:38 | PN ---
Progress Note (short form) - Note Progress Note: SUBJECTIVE: Patient seen and examined at bedside. Intubated, sedated. OBJECTIVE Vitals Vital Signs Period Temp Pulse Resp BP Sys/Santiago Pulse Ox Last 24 Hr 97.2 F-99.1 F 76-100 12-87 136-145/61-90 96-99 PHYSICAL EXAM GENERAL: The patient is sedated. HEAD: Normal with no signs of trauma. EYES: Pupils equal, round and reactive to light, sclera anicteric, conjunctiva clear. ENT: Ears normal, nares patent, oropharynx not visualized due to ETT. Dry mucous membranes. NECK: No lymphadenopathy, JVD, or masses. LUNGS: Mechanical breath sounds. No wheezes, rhonchi or crackles appreciated. HEART: Regular rate and rhythm, normal S1 and S2 without murmur, rub or gallop. ABDOMEN: Soft, nontender, normoactive bowel sounds. No guarding, no rebound. No masses. EXTREMITIES: 2+ edema RUE and RLE; 2+pulses, warm, well-perfused. NEUROLOGICAL: Cannot be assessed. SKIN: Warm, dry, normal turgor. Laboratory Results - last 24 hr 08/06/15 08/07/15 08/07/15 23:40 06:22 07:00 WBC 12.0 H RBC 2.87 L Hgb 8.4 L Hct 25.3 L MCV 88.3 MCHC 33.2 RDW 14.3 Plt Count 202 MPV 9.7 Neutrophils % 82.8 Lymphocytes % 9.8 Monocytes % 4.7 Eosinophils % 2.2 Basophils % 0.5 POC Glucometer 207 154 08/07/15 08/07/15 08/07/15 12:46 18:27 21:42 WBC RBC Hgb Hct MCV MCHC RDW Plt Count MPV Neutrophils % Lymphocytes % Monocytes % Eosinophils % Basophils % POC Glucometer 182 185 220 Current Medications Generic Name Dose Route Start Last Admin Trade Name Freq PRN Reason Stop Dose Admin Acetaminophen 650 mg 07/31/15 15:42 08/04/15 22:25 Tylenol Oral Solution - GT 650 mg Q6H PRN Administration FEVER Amino Acids 30 ml 08/01/15 10:00 08/07/15 09:42 Prostat Sugar-Free Packet - GT 30 ml DAILY [facility] Administration Amlodipine Besylate 10 mg 08/01/15 10:00 08/07/15 09:40 Norvasc - GT 10 mg DAILY [facility] Administration Chlorhexidine Gluconate 15 ml 07/28/15 22:00 08/07/15 21:44 Peridex - MM 15 ml BID [facility] Administration Insulin Aspart 0 units 07/29/15 00:00 08/07/15 18:27 Novolog Flexpen Sliding Scale - SQ 2 units Q6HPO [facility] Administration Protocol Insulin Aspart 3 units 08/04/15 11:26 08/07/15 18:28 Novolog Flexpen - SQ 3 units Q6HPO [facility] Administration Insulin Detemir 25 units 08/04/15 11:26 08/07/15 21:49 Levemir Flexpen - SQ 25 units HS [facility] Administration Lisinopril 20 mg 08/01/15 10:00 08/07/15 09:40 Prinivil - GT 20 mg DAILY [facility] Administration Metoprolol Tartrate 5 mg 07/28/15 19:09 Lopressor Injection - IVPB Q6H PRN HYPERTENSION Metoprolol Tartrate 100 mg 07/31/15 22:00 08/07/15 21:49 Lopressor - GT 100 mg BID [facility] Administration Multivitamins 5 ml 07/31/15 15:38 08/07/15 09:42 Thera-Plus - GT 5 ml DAILY [facility] Administration Ondansetron HCl 4 mg 07/28/15 19:09 Zofran Injection - IVPB Q6H PRN NAUSEA Pantoprazole Sodium 40 mg 08/01/15 10:00 08/07/15 09:42 Protonix Packets For Oral Suspension - GT 40 mg DAILY [facility] Administration Vancomycin HCl 125 mg 07/31/15 18:00 08/07/15 18:36 Vancomycin Oral Solution GT 125 mg Q6HPO [facility] Administration ASSESSMENT & PLAN 75 year-old man with a PMH of HTN, IDDM, inguinal hernia a/w BRBPR and melena with multiple syncopal episodes. 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 By system NEUROLOGICAL Anoxic brain injury s/p brainstem CVA +brainstem functioning (pupils reactive, breathing over the vent). Not requiring medications for agitation. unresponsive. CARDIOVASCULAR Hypertension --controlled --continue lisinopril, metoprolol, amlodipine RESPIRATORY Respiratory failure --s/p trach, vent dependent GASTROINTESTINAL s/p right hemicolectomy s/p PEG --tolerating tube feeds ID C. diff -Tmax 100.3. stable leukocytosis. Cdiff negative. Cont Flagyl, Vanco and Ceftriaxone Day4. on vanco po day 20. will discuss with ID about de- esculation of abx as repeat BCx, Ucx and cdiff negative, RENAL Hypernatremia- resolved. Cont water flushes at 350cc Q6H, monitor ENDOCRINE DM- improved. possible due to infection. insulin regimen adjusted yesterday. will cont to monitor for now. COnt lantus 25units and novolog 3units Q6H. cont FS, ISS FLUIDS/ELECTROLYTES/NUTRITION FLUIDS: ELECTROLYTES: replete as indicated NUTRITION: Glucerna @50cc/hr PROPHYLAXIS DVT: GI: DISPO: Poor prognosis, DNR. Pt will require intermediate card tender placement once medically stable, possibly when pt is afebrile 24H off IV Abx
[2015-08-08] MEDS: VANCOMYCIN 250 MG/5 ML ORAL SOLUTION GT SCH ×4 (00:16→18:16)
[2015-08-08] MEDS: INSULIN SLIDING SCALE (NOVOLOG) 1 VIAL SQ SCH ×4 (00:17→17:59)
[2015-08-08] MEDS: INSULIN ASPART SQ SCH ×4 (00:17→17:59)
[2015-08-08] MEDS: METOPROLOL TARTRATE 50 MG TABLET (FP) GT SCH ×2 (09:07→22:44)
[2015-08-08] MEDS: LISINOPRIL 20 MG TABLET (FP) GT SCH (09:07)
[2015-08-08] MEDS: amLODIPine BESYLATE 10 MG TABLET (FP) GT SCH (09:07)
[2015-08-08 09:08] LABS: BASOPHIL 0.4 % (0-2.0); EOSINOPHIL 2.7 % (0-4.5); MCH 29.1 pg (25.7-33.7); MCHC 32.9 g/dl (32.0-35.9); MEAN CELL VOLUME 88.5 fl (80-96); MEAN PLT VOLUME 8.9 fl (7.5-11.1); NEUTROPHILS 79.6 % (42.8-82.8); PLATELET COUNT 212 K/MM3 (134-434); RDW 14.3 % (11.9-15.9); WHITE BLOOD COUNT 11.5 K/mm3 (4.0-10.0)
[2015-08-08] MEDS: AMINO ACIDS/PROTEIN HYDROLYS SUGAR-FREE 30 ML PACKET GT SCH (09:08)
[2015-08-08] MEDS: PANTOPRAZOLE SOD 40 MG SUSPENSION PACKET GT SCH (09:08)
[2015-08-08] MEDS: CHLORHEXIDINE GLUCONATE 0.12% 15ML CUP MM SCH ×2 (09:08→22:43)
[2015-08-08] MEDS: MULTIVITAMINS THERAPEUTIC GT SCH (09:09)
[2015-08-08 09:59] LABS: ALBUMIN 2.4 g/dl (3.4-5.0); ALK PHOS 106 U/L (45-117); ANION GAP 5 (8-16); BILIRUBIN,TOTAL 0.2 mg/dL (0.2-1.0); CO2 32 mmol/L (21-32); CREATININE 0.6 mg/dL (0.6-1.3); GLUCOSE,RANDOM 146 mg/dL (74-106); MAGNESIUM 2.1 mg/dL (1.8-2.4); PHOSPHOROUS 4.1 mg/dL (2.5-4.9); SGOT/AST 26 U/L (15-37); SGPT/ALT 33 U/L (12-78); TOT PROT 6.1 g/dl (6.4-8.2)
--- NOTE | 2015-08-08 11:21 | PN ---
Progress Note (short form) - Note Progress Note: Hospital day #42 for this 75 year old male with a history of admitted on 06/26 with GI bleed, course complicated by acute CVA and respiratory failure s/p intubation-->tracheostomy. EVENTS: Afebrile > 24h. PHYSICAL EXAM GENERAL: Opens eyes to voice. HEAD: Normal with no signs of trauma. EYES: Pupils equal, round and reactive to light, sclera anicteric, conjunctiva clear. ENT: Ears normal, nares patent. Dry mucous membranes. NECK: No lymphadenopathy, JVD, or masses. LUNGS: Mechanical breath sounds. No wheezes, rhonchi or crackles. HEART: Regular rate and rhythm, normal S1 and S2 without murmur, rub or gallop. ABDOMEN: Soft, nontender, normoactive bowel sounds. No guarding, no rebound. No masses. EXTREMITIES: 2+ edema RUE and RLE; 2+pulses, warm, well-perfused. NEUROLOGICAL: Withdraws to painful stimuli. SKIN: Warm, dry, normal turgor. Stage III sacral, Stage II left ear pressure ulcers. 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 1. NEURO: NEUROLOGICAL -Anoxic brain injury s/p brainstem CVA -No response to painful stimulation off sedation -Poor prognosis for meaningful recovery 2. CARDIOVASCULAR: HTN -At goal -Continue lisinopril, metoprolol, amlodipine 3. RESPIRATORY -S/p trach, vent dependent, no potential for weaning at this time 4. GI: S/p diverticular bleed, right hemicolectomy -S/p PEG -Tolerating feeds 5. ID: C. difficile -Stable (11.5 today) -C difficile positive -Blood and urine cultures negative -Continue Vancomycin per GT, dc IV abx per ID 6. ENDO: DM -Cont Levemir 25units hs and novolog 3 units q6h -FS q6h -Glucerna feeds 7. INTEG: Mult pressure ulcers -Prostat per GT -Optifoam, Allevyn, Accuair mattress -Frequent turning and positioning 8. F/E/N -FLUIDS: Hypernatremia- resolved. Cont water flushes at 350cc Q6H, monitor -ELECTROLYTES: replete as indicated -NUTRITION: Glucerna @50cc/hr PPX: SCDs, protonix GT. DISPO: Transfer to SNF. Discussed with case management. DISPO: Transfer to SNF. Discussed with case management. DISPO: Transfer to SNF. Discussed with case management. --continue lisinopril, metoprolol, amlodipine RESPIRATORY Respiratory failure --s/p trach, vent dependent GASTROINTESTINAL s/p right hemicolectomy s/p PEG --tolerating tube feeds ID C. diff -Tmax 100.3. stable leukocytosis. Cdiff negative. Cont Flagyl, Vanco and Ceftriaxone Day4. on vanco po day 20. will discuss with ID about de- esculation of abx as repeat BCx, Ucx and cdiff negative, RENAL Hypernatremia- resolved. Cont water flushes at 350cc Q6H, monitor ENDOCRINE DM- improved. possible due to infection. insulin regimen adjusted yesterday. will cont to monitor for now. COnt lantus 25units and novolog 3units Q6H. cont FS, ISS FLUIDS/ELECTROLYTES/NUTRITION FLUIDS: ELECTROLYTES: replete as indicated NUTRITION: Glucerna @50cc/hr PROPHYLAXIS DVT: GI: DISPO: Transfer to SNF. Discussed with case management. DISPO: Transfer to SNF. Discussed with case management.
--- NOTE | 2015-08-08 12:18 | PN ---
Progress Note (short form) - Note Progress Note: PULMONARY CHART REVIEWED PATIENT EXAMINED VENT SETTINGS NOTED AFEBRILE NO OVERALL CHANGE IN CLINICAL CONDITION A/P Respiratory Failure s/p Tracheostomy Acute CVA/Anoxic Brain Injury S/P Acute Lower Diverticular GI Bleed Acute Blood Loss Anemia s/p Pneumonia HTN DM CKD + C Diff Ag Fever - continue vent support on ac mode no weaning potential at this time. - enteral feeds - DVT/GI prophylaxis - Prognosis poor R VIN HERRER[facility]
[2015-08-08] MEDS: INSULIN DETEMIR SQ SCH (22:43)
[2015-08-09] MEDS: INSULIN SLIDING SCALE (NOVOLOG) 1 VIAL SQ SCH ×4 (01:04→17:49)
[2015-08-09] MEDS: VANCOMYCIN 250 MG/5 ML ORAL SOLUTION GT SCH ×4 (01:04→17:48)
[2015-08-09] MEDS: INSULIN ASPART SQ SCH ×4 (01:06→17:48)
[2015-08-09] MEDS: amLODIPine BESYLATE 10 MG TABLET (FP) GT SCH (10:19)
[2015-08-09] MEDS: METOPROLOL TARTRATE 50 MG TABLET (FP) GT SCH ×2 (10:19→21:02)
[2015-08-09] MEDS: MULTIVITAMINS THERAPEUTIC GT SCH (10:19)
[2015-08-09] MEDS: CHLORHEXIDINE GLUCONATE 0.12% 15ML CUP MM SCH ×2 (10:19→21:02)
[2015-08-09] MEDS: LISINOPRIL 20 MG TABLET (FP) GT SCH (10:19)
[2015-08-09] MEDS: AMINO ACIDS/PROTEIN HYDROLYS SUGAR-FREE 30 ML PACKET GT SCH (10:19)
[2015-08-09] MEDS: PANTOPRAZOLE SOD 40 MG SUSPENSION PACKET GT SCH (10:19)
--- NOTE | 2015-08-09 13:13 | PN ---
Progress Note, Physician History of Present Illness: PULMONARY NO CHANGE POORLY RESPONSIVE ON VENT SUPPORT AC MODE. - Current Medication List Current Medications: Active Medications Acetaminophen (Tylenol Oral Solution -) 650 mg GT Q6H PRN PRN Reason: FEVER Last Admin: 08/04/15 22:25 Dose: 650 mg Amino Acids (Prostat Sugar-Free Packet -) 30 ml GT DAILY [facility] Last Admin: 08/09/15 10:19 Dose: 30 ml Amlodipine Besylate (Norvasc -) 10 mg GT DAILY [facility] Last Admin: 08/09/15 10:19 Dose: 10 mg Chlorhexidine Gluconate (Peridex -) 15 ml MM BID [facility] Last Admin: 08/09/15 10:19 Dose: 15 ml Insulin Aspart (Novolog Flexpen Sliding Scale -) 0 units SQ Q6HPO [facility] PRN Reason: Protocol Last Admin: 08/09/15 11:23 Dose: 4 units Insulin Aspart (Novolog Flexpen -) 3 units SQ Q6HPO [facility] Last Admin: 08/09/15 11:23 Dose: 3 units Insulin Detemir (Levemir Flexpen -) 25 units SQ HS [facility] Last Admin: 08/08/15 22:43 Dose: 25 units Lisinopril (Prinivil -) 20 mg GT DAILY [facility] Last Admin: 08/09/15 10:19 Dose: 20 mg Metoprolol Tartrate (Lopressor Injection -) 5 mg IVPB Q6H PRN PRN Reason: HYPERTENSION Metoprolol Tartrate (Lopressor -) 100 mg GT BID [facility] Last Admin: 08/09/15 10:19 Dose: 100 mg Multivitamins (Thera-Plus -) 5 ml GT DAILY [facility] Last Admin: 08/09/15 10:19 Dose: 5 ml Ondansetron HCl (Zofran Injection -) 4 mg IVPB Q6H PRN PRN Reason: NAUSEA Pantoprazole Sodium (Protonix Packets For Oral Suspension -) 40 mg GT DAILY [facility] Last Admin: 08/09/15 10:19 Dose: 40 mg Vancomycin HCl (Vancomycin Oral Solution) 125 mg GT Q6HPO [facility] Last Admin: 08/09/15 11:25 Dose: 125 mg - Objective Vital Signs: Vital Signs Temperature 98.9 F 08/09/15 09:00 Pulse Rate 91 H 08/09/15 10:28 Respiratory Rate 16 08/09/15 10:15 Blood Pressure 148/95 08/09/15 09:00 O2 Sat by Pulse Oximetry (%) 98 08/09/15 10:28 Constitutional: Yes: Calm, Thin, Other (POORLY RESPONSIVE) Eyes: Yes: WNL HENT: Yes: WNL Neck: Yes: Supple (TRACHE) Cardiovascular: Yes: Regular Rate and Rhythm, S1, S2 Respiratory: Yes: Rhonchi (SCATTERED JUANPABLO RHONCHI) Gastrointestinal: Yes: Normal Bowel Sounds, Soft Extremities: Yes: WNL Edema: No Labs: CBC, BMP 08/08/15 08:35 08/08/15 08:35 INR, PTT INR 1.30 (0.86-1.14) H 07/29/15 10:00 Problem List - Problems (1) Anoxic brain damage Code: G93.1 (2) Lower GI bleed Code: K92.2 (3) 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 (5) Fever Code: R50.9 (6) CVA (cerebral vascular accident) Code: I63.9 Qualifiers: CVA mechanism: unspecified Qualifier Code: (I63.9) Cerebral infarction , unspecified Assessment/Plan A/P Acute Respiratory Failure s/p Tracheostomy Acute CVA/Anoxic Brain Injury S/P Acute Lower Diverticular GI Bleed Acute Blood Loss Anemia s/p Pneumonia HTN DM CKD + C Diff Ag Fever - continue vent support on ac mode no weaning potential at this time. - enteral feeds - DVT/GI prophylaxis - cultures - Prognosis poor DR HENRY
--- NOTE | 2015-08-09 19:25 | PN ---
Progress Note (short form) - Note Progress Note: SUBJECTIVE Hospital day #43 for this 75 year old male admitted on 06/26 with GI bleed, course complicated by acute CVA and respiratory failure s/p intubation--> tracheostomy and PEG. EVENTS: Afebrile > 24h. PHYSICAL EXAM GENERAL: Eyes open today, moves right hand and wiggles right toes to command. HEAD: Normal with no signs of trauma. EYES: Pupils equal, round and reactive to light, sclera anicteric, conjunctiva clear. ENT: Ears normal, nares patent. Dry mucous membranes. NECK: No lymphadenopathy, JVD, or masses. LUNGS: Mechanical breath sounds. No wheezes, rhonchi or crackles. HEART: Regular rate and rhythm, normal S1 and S2 without murmur, rub or gallop. ABDOMEN: Soft, nontender, normoactive bowel sounds. No guarding, no rebound. No masses. EXTREMITIES: 2+ edema RUE and RLE; 2+pulses, warm, well-perfused. NEUROLOGICAL: Withdraws to painful stimuli. Right-sided facial droop. SKIN: Warm, dry, normal turgor. Stage III sacral, Stage II left ear pressure ulcers. 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 1. NEURO: NEUROLOGICAL -Anoxic brain injury s/p brainstem CVA -Improvement over past 48 hours: eyes are open, following simple commands; can move right hand and right toes; no movement on left side 2. CARDIOVASCULAR: HTN -At goal -Continue lisinopril, metoprolol, amlodipine 3. RESPIRATORY -S/p trach, vent dependent, no potential for weaning at this time 4. GI: S/p diverticular bleed, right hemicolectomy -S/p PEG -Tolerating feeds 5. ID: C. difficile -Stable -C difficile positive -Blood and urine cultures negative -Continue Vancomycin per GT, dc IV abx per ID 6. ENDO: DM -Cont Levemir 25units hs and novolog 3 units q6h -FS q6h -Glucerna feeds 7. INTEG: Mult pressure ulcers -Prostat per GT -Optifoam, Allevyn, Accuair mattress -Frequent turning and positioning 8. F/E/N -FLUIDS: Hypernatremia- resolved. Cont water flushes at 350cc Q6H, monitor -ELECTROLYTES: replete as indicated -NUTRITION: Glucerna @50cc/hr PPX: SCDs, protonix GT. DISPO: Transfer to SNF. Discussed with case management.
[2015-08-09] MEDS: INSULIN DETEMIR SQ SCH (21:02)
[2015-08-10] MEDS: INSULIN SLIDING SCALE (NOVOLOG) 1 VIAL SQ SCH ×5 (00:22→23:31)
[2015-08-10] MEDS: INSULIN ASPART SQ SCH ×5 (00:22→23:30)
[2015-08-10] MEDS: VANCOMYCIN 250 MG/5 ML ORAL SOLUTION GT SCH ×5 (00:23→23:31)
[2015-08-10] MEDS: AMINO ACIDS/PROTEIN HYDROLYS SUGAR-FREE 30 ML PACKET GT SCH (10:23)
[2015-08-10] MEDS: LISINOPRIL 20 MG TABLET (FP) GT SCH (10:23)
[2015-08-10] MEDS: amLODIPine BESYLATE 10 MG TABLET (FP) GT SCH (10:23)
[2015-08-10] MEDS: METOPROLOL TARTRATE 50 MG TABLET (FP) GT SCH ×2 (10:23→22:09)
[2015-08-10] MEDS: CHLORHEXIDINE GLUCONATE 0.12% 15ML CUP MM SCH ×2 (10:23→22:09)
[2015-08-10] MEDS: PANTOPRAZOLE SOD 40 MG SUSPENSION PACKET GT SCH (10:24)
[2015-08-10] MEDS: MULTIVITAMINS THERAPEUTIC GT SCH (10:24)
--- NOTE | 2015-08-10 11:44 | PN ---
Progress Note (short form) - Note Progress Note: PULMONARY Remains vented, poorly responsive. On SIMV trials. Last Vital Signs Temp Pulse Resp BP Pulse Ox 98.8 F 93 H 22 157/88 98 08/10/15 10:00 08/10/15 10:35 08/10/15 10:25 08/10/15 10:00 08/10/15 10:35 Gen: intubated, poorly responsive Heart: RRR Lung: decreased breath sounds at the bases Abd: soft, nontender, dressing dry Ext: + edema CBC, BMP 08/08/15 08:35 08/08/15 08:35 Active Medications Acetaminophen (Tylenol Oral Solution -) 650 mg GT Q6H PRN PRN Reason: FEVER Last Admin: 08/04/15 22:25 Dose: 650 mg Amino Acids (Prostat Sugar-Free Packet -) 30 ml GT DAILY [facility] Last Admin: 08/10/15 10:23 Dose: 30 ml Amlodipine Besylate (Norvasc -) 10 mg GT DAILY [facility] Last Admin: 08/10/15 10:23 Dose: 10 mg Chlorhexidine Gluconate (Peridex -) 15 ml MM BID [facility] Last Admin: 08/10/15 10:23 Dose: 15 ml Insulin Aspart (Novolog Flexpen Sliding Scale -) 0 units SQ Q6HPO [facility] PRN Reason: Protocol Last Admin: 08/10/15 11:37 Dose: 4 units Insulin Aspart (Novolog Flexpen -) 3 units SQ Q6HPO [facility] Last Admin: 08/10/15 11:36 Dose: 3 units Insulin Detemir (Levemir Flexpen -) 25 units SQ HS [facility] Last Admin: 08/09/15 21:02 Dose: 25 units Lisinopril (Prinivil -) 20 mg GT DAILY [facility] Last Admin: 08/10/15 10:23 Dose: 20 mg Metoprolol Tartrate (Lopressor Injection -) 5 mg IVPB Q6H PRN PRN Reason: HYPERTENSION Metoprolol Tartrate (Lopressor -) 100 mg GT BID [facility] Last Admin: 08/10/15 10:23 Dose: 100 mg Multivitamins (Thera-Plus -) 5 ml GT DAILY [facility] Last Admin: 08/10/15 10:24 Dose: 5 ml Ondansetron HCl (Zofran Injection -) 4 mg IVPB Q6H PRN PRN Reason: NAUSEA Pantoprazole Sodium (Protonix Packets For Oral Suspension -) 40 mg GT DAILY [facility] Last Admin: 08/10/15 10:24 Dose: 40 mg Vancomycin HCl (Vancomycin Oral Solution) 125 mg GT Q6HPO [facility] Last Admin: 08/10/15 11:37 Dose: 125 mg A/P Acute Respiratory Failure s/p Tracheostomy Acute CVA/Anoxic Brain Injury Acute Lower Diverticular GI Bleed Acute Blood Loss Anemia s/p Pneumonia HTN DM CKD + C Diff Ag Fever - antibiotics per ID - enteral feeds - DVT/GI prophylaxis - continue discussions with family regarding goals of care - poor prognosis for meaningful recovery
--- NOTE | 2015-08-10 13:55 | PN ---
Progress Note, Physician History of Present Illness: pt seen and evaluated at the bedside - Current Medication List Current Medications: Active Medications Acetaminophen (Tylenol Oral Solution -) 650 mg GT Q6H PRN PRN Reason: FEVER Last Admin: 08/04/15 22:25 Dose: 650 mg Amino Acids (Prostat Sugar-Free Packet -) 30 ml GT DAILY [facility] Last Admin: 08/10/15 10:23 Dose: 30 ml Amlodipine Besylate (Norvasc -) 10 mg GT DAILY [facility] Last Admin: 08/10/15 10:23 Dose: 10 mg Chlorhexidine Gluconate (Peridex -) 15 ml MM BID [facility] Last Admin: 08/10/15 10:23 Dose: 15 ml Insulin Aspart (Novolog Flexpen Sliding Scale -) 0 units SQ Q6HPO [facility] PRN Reason: Protocol Last Admin: 08/10/15 11:37 Dose: 4 units Insulin Aspart (Novolog Flexpen -) 3 units SQ Q6HPO [facility] Last Admin: 08/10/15 11:36 Dose: 3 units Insulin Detemir (Levemir Flexpen -) 25 units SQ [facility] Last Admin: 08/09/15 21:02 Dose: 25 units Lisinopril (Prinivil -) 20 mg GT DAILY [facility] Last Admin: 08/10/15 10:23 Dose: 20 mg Metoprolol Tartrate (Lopressor Injection -) 5 mg IVPB Q6H PRN PRN Reason: HYPERTENSION Metoprolol Tartrate (Lopressor -) 100 mg GT BID [facility] Last Admin: 08/10/15 10:23 Dose: 100 mg Multivitamins (Thera-Plus -) 5 ml GT DAILY [facility] Last Admin: 08/10/15 10:24 Dose: 5 ml Ondansetron HCl (Zofran Injection -) 4 mg IVPB Q6H PRN PRN Reason: NAUSEA Pantoprazole Sodium (Protonix Packets For Oral Suspension -) 40 mg GT DAILY [facility] Last Admin: 08/10/15 10:24 Dose: 40 mg Vancomycin HCl (Vancomycin Oral Solution) 125 mg GT Q6HPO [facility] Last Admin: 08/10/15 11:37 Dose: 125 mg - Objective Vital Signs: Vital Signs Temperature 98.8 F 08/10/15 10:00 Pulse Rate 93 H 08/10/15 10:35 Respiratory Rate 22 08/10/15 10:25 Blood Pressure 157/88 08/10/15 10:00 O2 Sat by Pulse Oximetry (%) 98 08/10/15 10:35 Constitutional: Yes: Well Nourished, No Distress, Calm Eyes: Yes: WNL, Conjunctiva Clear HENT: Yes: WNL, Atraumatic, Normocephalic Neck: Yes: Other (trach collar in place) Cardiovascular: Yes: WNL, Regular Rate and Rhythm Respiratory: Yes: WNL, Regular, CTA Bilaterally Gastrointestinal: Yes: Normal Bowel Sounds, Other (PEG tube in place) ...Rectal Exam: Yes: Other (rectal tube in place) Genitourinary: Yes: Schwartz Present Musculoskeletal: Yes: WNL Extremities: Yes: WNL Edema: No Integumentary: Yes: WNL Neurological: Yes: WNL, Alert, Oriented ...Motor Strength: WNL Psychiatric: Yes: WNL Labs: CBC, BMP 08/08/15 08:35 08/08/15 08:35 INR, PTT INR 1.30 (0.86-1.14) H 07/29/15 10:00 Assessment/Plan 75 year old male admitted on 06/26 with GI bleed, course complicated by acute CVA and respiratory failure s/p intubation-->tracheostomy and PEG. 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 diff -cont PO vancomycin via PEG tube DVT proph -venodyne boots
[2015-08-10] MEDS: INSULIN DETEMIR SQ SCH (23:30)
[2015-08-11] MEDS: INSULIN ASPART SQ SCH ×4 (06:16→23:12)
[2015-08-11] MEDS: INSULIN SLIDING SCALE (NOVOLOG) 1 VIAL SQ SCH ×4 (06:16→23:13)
[2015-08-11] MEDS: VANCOMYCIN 250 MG/5 ML ORAL SOLUTION GT SCH ×4 (06:17→23:13)
--- NOTE | 2015-08-11 09:04 | PN ---
Progress Note, Physician History of Present Illness: pt seen and evaluated at the bedside - Current Medication List Current Medications: Active Medications Acetaminophen (Tylenol Oral Solution -) 650 mg GT Q6H PRN PRN Reason: FEVER Last Admin: 08/04/15 22:25 Dose: 650 mg Amino Acids (Prostat Sugar-Free Packet -) 30 ml GT DAILY [facility] Last Admin: 08/10/15 10:23 Dose: 30 ml Amlodipine Besylate (Norvasc -) 10 mg GT DAILY [facility] Last Admin: 08/10/15 10:23 Dose: 10 mg Chlorhexidine Gluconate (Peridex -) 15 ml MM BID [facility] Last Admin: 08/10/15 22:09 Dose: 15 ml Insulin Aspart (Novolog Flexpen Sliding Scale -) 0 units SQ Q6HPO [facility] PRN Reason: Protocol Last Admin: 08/11/15 06:16 Dose: 4 units Insulin Aspart (Novolog Flexpen -) 3 units SQ Q6HPO [facility] Last Admin: 08/11/15 06:16 Dose: 3 units Insulin Detemir (Levemir Flexpen -) 25 units SQ [facility] Last Admin: 08/10/15 23:30 Dose: 25 units Lisinopril (Prinivil -) 20 mg GT DAILY [facility] Last Admin: 08/10/15 10:23 Dose: 20 mg Metoprolol Tartrate (Lopressor Injection -) 5 mg IVPB Q6H PRN PRN Reason: HYPERTENSION Metoprolol Tartrate (Lopressor -) 100 mg GT BID [facility] Last Admin: 08/10/15 22:09 Dose: 100 mg Multivitamins (Thera-Plus -) 5 ml GT DAILY [facility] Last Admin: 08/10/15 10:24 Dose: 5 ml Ondansetron HCl (Zofran Injection -) 4 mg IVPB Q6H PRN PRN Reason: NAUSEA Pantoprazole Sodium (Protonix Packets For Oral Suspension -) 40 mg GT DAILY [facility] Last Admin: 08/10/15 10:24 Dose: 40 mg Vancomycin HCl (Vancomycin Oral Solution) 125 mg GT Q6HPO [facility] Last Admin: 08/11/15 06:17 Dose: 125 mg - Objective Vital Signs: Vital Signs Temperature 99.8 F H 08/11/15 06:00 Pulse Rate 85 08/11/15 06:00 Respiratory Rate 15 08/11/15 06:23 Blood Pressure 146/81 08/11/15 06:00 O2 Sat by Pulse Oximetry (%) 100 08/10/15 22:00 Eyes: Yes: WNL, Conjunctiva Clear HENT: Yes: WNL, Atraumatic, Normocephalic, Other Neck: Yes: Supple, Trachea Midline, Other (trach collar in place attached to vent) Cardiovascular: Yes: WNL, Regular Rate and Rhythm Respiratory: Yes: WNL, Regular, CTA Bilaterally Gastrointestinal: Yes: Normal Bowel Sounds, Other (PEG tube in place) ...Rectal Exam: Yes: Other (rectal tube in place) Genitourinary: Yes: Schwartz Present Musculoskeletal: Yes: WNL Extremities: Yes: WNL Edema: No Integumentary: Yes: WNL Neurological: Yes: WNL, Alert, Oriented ...Motor Strength: WNL Psychiatric: Yes: WNL Labs: CBC, BMP 08/08/15 08:35 08/08/15 08:35 INR, PTT INR 1.30 (0.86-1.14) H 07/29/15 10:00 Assessment/Plan 75 year old male admitted on 06/26 with GI bleed, course complicated by acute CVA and respiratory failure s/p intubation-->tracheostomy and PEG. 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 diff -cont PO vancomycin via PEG tube DVT proph -venodyne boots
[2015-08-11] MEDS: METOPROLOL TARTRATE 50 MG TABLET (FP) GT SCH ×2 (09:31→22:07)
[2015-08-11] MEDS: amLODIPine BESYLATE 10 MG TABLET (FP) GT SCH (09:31)
[2015-08-11] MEDS: CHLORHEXIDINE GLUCONATE 0.12% 15ML CUP MM SCH ×2 (09:32→22:08)
[2015-08-11] MEDS: LISINOPRIL 20 MG TABLET (FP) GT SCH (09:32)
[2015-08-11] MEDS: AMINO ACIDS/PROTEIN HYDROLYS SUGAR-FREE 30 ML PACKET GT SCH ×2 (09:32→22:08)
[2015-08-11] MEDS: PANTOPRAZOLE SOD 40 MG SUSPENSION PACKET GT SCH (09:32)
[2015-08-11] MEDS: MULTIVITAMINS THERAPEUTIC GT SCH (09:33)
--- NOTE | 2015-08-11 12:28 | WOUND ---
Wound Assessment [facility] Reason for visit: Wound Assessment Request for consultation: by [facility] Interdisciplinary Wound Care Team Initial Encounter: No Previous Encounter: Yes - History of Present Illness Past Medical History Cardio/Vascular HTN Endocrine Diabetes Mellitus Past Surgical History Past Surgical History Hernia Repair Social History Smoking history Never smoked Have you smoked in the past 12 No months Hx Alcohol Use No Current Medications Generic Name Dose Route Start Last Admin Trade Name Freq PRN Reason Stop Dose Admin Acetaminophen 650 mg 07/31/15 15:42 08/04/15 22:25 Tylenol Oral Solution - GT 650 mg Q6H PRN Administration FEVER Amino Acids 30 ml 08/01/15 10:00 08/11/15 09:32 Prostat Sugar-Free Packet - GT 30 ml DAILY [facility] Administration Amlodipine Besylate 10 mg 08/01/15 10:00 08/11/15 09:31 Norvasc - GT 10 mg DAILY [facility] Administration Chlorhexidine Gluconate 15 ml 07/28/15 22:00 08/11/15 09:32 Peridex - MM 15 ml BID [facility] Administration Insulin Aspart 0 units 07/29/15 00:00 08/11/15 12:15 Novolog Flexpen Sliding Scale - SQ 2 units Q6HPO [facility] Administration Protocol Insulin Aspart 3 units 08/04/15 11:26 08/11/15 12:14 Novolog Flexpen - SQ 3 units Q6HPO [facility] Administration Insulin Detemir 25 units 08/04/15 11:26 08/10/15 23:30 Levemir Flexpen - SQ 25 units HS [facility] Administration Lisinopril 20 mg 08/01/15 10:00 08/11/15 09:32 Prinivil - GT 20 mg DAILY [facility] Administration Metoprolol Tartrate 5 mg 07/28/15 19:09 Lopressor Injection - IVPB Q6H PRN HYPERTENSION Metoprolol Tartrate 100 mg 07/31/15 22:00 08/11/15 09:31 Lopressor - GT 100 mg BID [facility] Administration Multivitamins 5 ml 07/31/15 15:38 08/11/15 09:33 Thera-Plus - GT 5 ml DAILY [facility] Administration Ondansetron HCl 4 mg 07/28/15 19:09 Zofran Injection - IVPB Q6H PRN NAUSEA Pantoprazole Sodium 40 mg 08/01/15 10:00 08/11/15 09:32 Protonix Packets For Oral Suspension - GT 40 mg DAILY [facility] Administration Vancomycin HCl 125 mg 07/31/15 18:00 08/11/15 06:17 Vancomycin Oral Solution GT 125 mg Q6HPO [facility] Administration Allergies Allergy/AdvReac Type Severity Reaction Status Date / Time No Known Allergies Allergy Verified 06/26/15 21:31 Physical Exam - Objective Last Vital Signs Temp Pulse Resp BP Pulse Ox 99.8 F H 104 H 12 146/81 95 08/11/15 06:00 08/11/15 09:33 08/11/15 09:33 08/11/15 06:00 08/11/15 09:33 Laboratory Last Values WBC 11.5 K/mm3 (4.0-10.0) H 08/08/15 08:35 Corrected WBC (auto) Cancelled 06/26/15 21:50 RBC 2.80 M/mm3 (4.00-5.60) L 08/08/15 08:35 Hgb 8.1 GM/dL (11.7-16.9) L 08/08/15 08:35 Hct 24.7 % (35.4-49) L 08/08/15 08:35 MCV 88.5 fl (80-96) 08/08/15 08:35 MCHC 32.9 g/dl (32.0-35.9) 08/08/15 08:35 RDW 14.3 % (11.9-15.9) 08/08/15 08:35 Plt Count 212 K/MM3 (134-434) 08/08/15 08:35 MPV 8.9 fl (7.5-11.1) 08/08/15 08:35 Add Manual Diff Cancelled 06/26/15 21:50 Neutrophils % 79.6 % (42.8-82.8) 08/08/15 08:35 Lymphocytes % 11.5 % (8-40) 08/08/15 08:35 Monocytes % 5.8 % (3.8-10.2) 08/08/15 08:35 Eosinophils % 2.7 % (0-4.5) 08/08/15 08:35 Basophils % 0.4 % (0-2.0) 08/08/15 08:35 Band Neutrophils 6.0 % (0-10) 06/28/15 09:35 Differential Comment Manual diff done 06/28/15 09:35 Smudge Cells Cancelled 06/26/15 21:50 Platelet Estimate Slt decreased (NORMAL) 06/28/15 09:35 Platelet Comment No clumping noted 06/28/15 09:35 Platelet Comment No clotting detected 06/28/15 09:35 Normal RBC Morphology Cancelled 06/26/15 21:50 RBC Morphology Cancelled 06/26/15 21:50 INR 1.30 (0.86-1.14) H 07/29/15 10:00 PTT (Actin FS) 28.6 SECONDS (23.5-38.3) 07/23/15 05:20 Anticoagulation Therapy Y 07/11/15 07:07 Puncture Site Right radial 07/11/15 07:07 ABG pH 7.44 (7.35-7.45) 07/11/15 07:07 ABG pCO2 at Pt Temp 42.1 mmHg (35-45) 07/11/15 07:07 ABG pO2 at Pt Temp 113.0 mmHg (70-100) H D 07/11/15 07:07 ABG HCO3 27.8 meq/L (22-26) H 07/11/15 07:07 ABG O2 Sat (Measured) 99.1 % (90-98.9) H 07/11/15 07:07 ABG O2 Content 13.3 % vol (15-22) L 07/11/15 07:07 ABG Base Excess 3.8 meq/l (-2-2) H 07/11/15 07:07 Izaiah Test Positive 07/11/15 07:07 O2 Delivery Device Ventilator 07/11/15 07:07 Oxygen Flow Rate 30% 07/11/15 07:07 Vent Mode A/c 07/11/15 07:07 Vent Rate 10 07/11/15 07:07 Mechanical Rate Yes 07/11/15 07:07 PEEP 5.0 cmH2O 07/11/15 07:07 Pressure Support Vent 500 07/11/15 07:07 Sodium 144 mmol/L (136-145) 08/08/15 08:35 Potassium 4.1 mmol/L (3.5-5.1) 08/08/15 08:35 Chloride 107 mmol/L (98-107) 08/08/15 08:35 Carbon Dioxide 32 mmol/L (21-32) 08/08/15 08:35 Anion Gap 5 (8-16) L 08/08/15 08:35 BUN 19 mg/dL (7-18) H D 08/08/15 08:35 Creatinine 0.6 mg/dL (0.6-1.3) D 08/08/15 08:35 Creat Clearance w eGFR > 60 (>60) 08/08/15 08:35 POC Glucometer 155 UNITS (()) 08/11/15 11:59 Random Glucose 146 mg/dL (74-106) H D 08/08/15 08:35 Lactic Acid 1.606 mmol/L (0.4-2.0) 06/27/15 10:10 Calcium 9.0 mg/dL (8.5-10.1) 08/08/15 08:35 Phosphorus 4.1 mg/dL (2.5-4.9) 08/08/15 08:35 Magnesium 2.1 mg/dL (1.8-2.4) 08/08/15 08:35 Total Bilirubin 0.2 mg/dL (0.2-1.0) D 08/08/15 08:35 AST 26 U/L (15-37) 08/08/15 08:35 ALT 33 U/L (12-78) 08/08/15 08:35 Alkaline Phosphatase 106 U/L (45-117) 08/08/15 08:35 Creatine Kinase 62 IU/L (38-174) 06/28/15 09:35 Creatine Kinase Index 0.7 % (0.0-5.0) 06/26/15 21:50 CK-MB (CK-2) 1.077 ng/ml (0.3-4.0) 06/26/15 21:50 CK-MB (CK-2) Rel Index Cancelled 06/26/15 21:50 Troponin I 0.07 ng/ml (0.03-0.5) D 07/09/15 05:00 Total Protein 6.1 g/dl (6.4-8.2) L 08/08/15 08:35 Albumin 2.4 g/dl (3.4-5.0) L 08/08/15 08:35 Lipase 140 U/L (73-293) 06/26/15 21:50 Prolactin 19.8 ng/ml (4.0-15.2) H 07/02/15 05:20 Urine Color Yellow 08/02/15 17:30 Urine Appearance Cloudy 08/02/15 17:30 Urine pH 5.0 (5.0-8.0) 08/02/15 17:30 Ur Specific Constable 1.029 (1.001-1.035) 08/02/15 17:30 Urine Protein Negative (NEGATIVE) 08/02/15 17:30 Urine Glucose (UA) 1+ (NEGATIVE) H 08/02/15 17:30 Urine Ketones Negative (NEGATIVE) 08/02/15 17:30 Urine Blood Negative (NEGATIVE) 08/02/15 17:30 Urine Nitrite Negative (NEGATIVE) 08/02/15 17: Urine Bilirubin Negative (NEGATIVE) 08/02/15 17:30 Urine Urobilinogen Negative E.U./dl (0.2-1.0) 08/02/15 17:30 Ur Leukocyte Esterase Negative (NEGATIVE) 08/02/15 17:30 Urine RBC 180 /hpf (0-3) 07/27/15 15:55 Urine WBC 5 /hpf (3-5) 07/27/15 15:55 Ur Epithelial Cells Rare /hpf (FEW) 07/27/15 15:55 Urine Mucus Rare 07/27/15 15:55 Stool Occult Blood Negative (NEGATIVE) 07/02/15 12:00 Hepatitis C Ab (EIA) <0.1 s/co ratio (0.0-0.9) 07/03/15 05:15 Blood Type O POSITIVE 07/22/15 11:54 Antibody Screen Negative 07/22/15 11:54 Crossmatch See Detail 06/30/15 15:15 Crossmatch IS Only See Detail 06/26/15 21:50 Spec Expiration Date 06/26/15 21:50 Microbiology 08/02/15 17:20 Blood - Peripheral Venous Blood Culture - Final NO GROWTH AFTER 5 DAYS INCUBATION 08/02/15 17:20 Blood - Peripheral Venous Blood Culture - Final NO GROWTH AFTER 5 DAYS INCUBATION 07/24/15 21:50 Sputum - Endotrachea Suction/Ventilator Gram Stain - Final 07/24/15 21:50 Sputum - Endotrachea Suction/Ventilator Sputum Culture - Final NORMAL RESPIRATORY ARMAND 07/30/15 18:30 Blood - Peripheral Venous Blood Culture - Final NO GROWTH AFTER 5 DAYS INCUBATION 07/30/15 18:30 Blood - Peripheral Venous Blood Culture - Final NO GROWTH AFTER 5 DAYS INCUBATION 08/02/15 19:00 Urine - Urine Schwartz Urine Culture - Final NO GROWTH OBTAINED 08/02/15 22:55 Stool Clostridium difficile Antigen (MACHO) - Final 08/02/15 22:55 Stool Clostridium difficile Toxin Assay - Final 07/27/15 19:00 Blood - Peripheral Venous Blood Culture - Final NO GROWTH AFTER 5 DAYS INCUBATION 07/27/15 19:00 Blood - Peripheral Venous Blood Culture - Final NO GROWTH AFTER 5 DAYS INCUBATION 07/27/15 19:30 Stool Clostridium difficile (PCR) - Final 07/27/15 15:55 Urine - Urine Schwartz Urine Culture - Final NO GROWTH OBTAINED 07/15/15 11:30 Blood - Peripheral Venous Blood Culture - Final NO GROWTH AFTER 5 DAYS INCUBATION 07/15/15 11:30 Blood - Peripheral Venous Blood Culture - Final NO GROWTH AFTER 5 DAYS INCUBATION 07/10/15 10:30 Stool Stool Culture - Final NO SALMONELLA, SHIGELLA, YERSINIA, CAMPYLOBACTER OR E COLI 0157 ISOLATED 07/10/15 10:35 Stool Clostridium difficile Antigen (MACHO) - Final 07/10/15 10:35 Stool Clostridium difficile Toxin Assay - Final 07/10/15 10:30 Stool Gram Stain - Final 07/02/15 18:00 Blood - Peripheral Venous Blood Culture - Final NO GROWTH AFTER 5 DAYS INCUBATION 07/02/15 18:00 Blood - Peripheral Venous Blood Culture - Final NO GROWTH AFTER 5 DAYS INCUBATION 06/28/15 09:32 Blood - Peripheral Venous Blood Culture - Final NO GROWTH AFTER 5 DAYS INCUBATION 06/28/15 09:32 Blood - Peripheral Venous Blood Culture - Final NO GROWTH AFTER 5 DAYS INCUBATION 06/28/15 17:30 Sputum - Endotrachea Suction/Ventilator Gram Stain - Final 06/28/15 17:30 Sputum - Endotrachea Suction/Ventilator Sputum Culture - Final NORMAL RESPIRATORY ARMAND 06/27/15 20:30 Urine - Urine Schwartz Urine Culture - Final NO GROWTH OBTAINED 06/28/15 10:00 Urine For Antigen Detection Legionella Antigen - Final 06/28/15 10:00 Urine For Antigen Detection Streptococcus pneumoniae Antigen (M - Final Wounds - Wound Wound #1 Type of wound: Yes: Pressure ulcer Assessment/Plan Wound #1 Diagnosis: Pressure ulcer Wound #2 Diagnosis: Pressure ulcer
--- NOTE | 2015-08-11 14:33 | PN ---
Progress Note, Physician History of Present Illness: PULMONARY NO CHANGE POORLY RESPONSIVE ON VENT SUPPORT,AC MODE - Current Medication List Current Medications: Active Medications Acetaminophen (Tylenol Oral Solution -) 650 mg GT Q6H PRN PRN Reason: FEVER Last Admin: 08/04/15 22:25 Dose: 650 mg Amino Acids (Prostat Sugar-Free Packet -) 30 ml GT BID [facility] Amlodipine Besylate (Norvasc -) 10 mg GT DAILY [facility] Last Admin: 08/11/15 09:31 Dose: 10 mg Chlorhexidine Gluconate (Peridex -) 15 ml MM BID [facility] Last Admin: 08/11/15 09:32 Dose: 15 ml Insulin Aspart (Novolog Flexpen Sliding Scale -) 0 units SQ Q6HPO [facility] PRN Reason: Protocol Last Admin: 08/11/15 12:15 Dose: 2 units Insulin Aspart (Novolog Flexpen -) 3 units SQ Q6HPO [facility] Last Admin: 08/11/15 12:14 Dose: 3 units Insulin Detemir (Levemir Flexpen -) 25 units SQ HS [facility] Last Admin: 08/10/15 23:30 Dose: 25 units Lisinopril (Prinivil -) 20 mg GT DAILY [facility] Last Admin: 08/11/15 09:32 Dose: 20 mg Metoprolol Tartrate (Lopressor Injection -) 5 mg IVPB Q6H PRN PRN Reason: HYPERTENSION Metoprolol Tartrate (Lopressor -) 100 mg GT BID [facility] Last Admin: 08/11/15 09:31 Dose: 100 mg Multivitamins (Thera-Plus -) 5 ml GT DAILY [facility] Last Admin: 08/11/15 09:33 Dose: 5 ml Ondansetron HCl (Zofran Injection -) 4 mg IVPB Q6H PRN PRN Reason: NAUSEA Pantoprazole Sodium (Protonix Packets For Oral Suspension -) 40 mg GT DAILY [facility] Last Admin: 08/11/15 09:32 Dose: 40 mg Vancomycin HCl (Vancomycin Oral Solution) 125 mg GT Q6HPO [facility] Last Admin: 08/11/15 13:34 Dose: 125 mg - Objective Vital Signs: Vital Signs Temperature 98.1 F 08/11/15 12:46 Pulse Rate 84 08/11/15 12:46 Respiratory Rate 18 08/11/15 14:18 Blood Pressure 146/84 10/14/15 12:46 O2 Sat by Pulse Oximetry (%) 100 08/11/15 12:49 Constitutional: Yes: Thin, Other (POORLY RESPONSIVE) Eyes: Yes: WNL HENT: Yes: WNL Neck: Yes: Supple (TRACH) Cardiovascular: Yes: Regular Rate and Rhythm, S1, S2 Respiratory: Yes: Diminished, Rhonchi (FEW RHONCHI) Gastrointestinal: Yes: WNL Extremities: Yes: WNL Edema: No Labs: Problem List - Problems (1) Anoxic brain damage Code: G93.1 (2) Lower GI bleed Code: K92.2 (3) 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 - enteral feeds - DVT/GI prophylaxis - Prognosis poor DR HENRY
[2015-08-11] MEDS: ACETAMINOPHEN 650 MG/20.3 ML ORAL SOLUTION (CUPS) GT PRN (15:25)
[2015-08-11] MEDS: MUPIROCIN 2% TOPICAL OINTMENT 22 GM TUBE TP SCH (22:07)
[2015-08-11] MEDS: INSULIN DETEMIR SQ SCH (23:12)
[2015-08-12] MEDS: INSULIN ASPART SQ SCH ×3 (06:32→17:48)
[2015-08-12] MEDS: VANCOMYCIN 250 MG/5 ML ORAL SOLUTION GT SCH ×3 (06:33→17:48)
[2015-08-12] MEDS: INSULIN SLIDING SCALE (NOVOLOG) 1 VIAL SQ SCH ×3 (06:33→17:48)
[2015-08-12] MEDS: CHLORHEXIDINE GLUCONATE 0.12% 15ML CUP MM SCH ×2 (10:08→22:09)
[2015-08-12] MEDS: amLODIPine BESYLATE 10 MG TABLET (FP) GT SCH (10:09)
[2015-08-12] MEDS: MULTIVITAMINS THERAPEUTIC GT SCH (10:09)
[2015-08-12] MEDS: PANTOPRAZOLE SOD 40 MG SUSPENSION PACKET GT SCH (10:10)
[2015-08-12] MEDS: AMINO ACIDS/PROTEIN HYDROLYS SUGAR-FREE 30 ML PACKET GT SCH ×2 (10:10→22:09)
[2015-08-12] MEDS: LISINOPRIL 20 MG TABLET (FP) GT SCH (10:10)
[2015-08-12] MEDS: METOPROLOL TARTRATE 50 MG TABLET (FP) GT SCH ×2 (10:11→22:09)
--- NOTE | 2015-08-12 10:54 | PN ---
Progress Note, Physician History of Present Illness: pt seen and evaluated at the bedside - Current Medication List Current Medications: Active Medications Acetaminophen (Tylenol Oral Solution -) 650 mg GT Q6H PRN PRN Reason: FEVER Last Admin: 08/11/15 15:25 Dose: 650 mg Amino Acids (Prostat Sugar-Free Packet -) 30 ml GT BID [facility] Last Admin: 08/12/15 10:10 Dose: 30 ml Amlodipine Besylate (Norvasc -) 10 mg GT DAILY [facility] Last Admin: 08/12/15 10:09 Dose: 10 mg Chlorhexidine Gluconate (Peridex -) 15 ml MM BID [facility] Last Admin: 08/12/15 10:08 Dose: 15 ml Collagenase (Santyl -) 1 applic TP DAILY [facility] Insulin Aspart (Novolog Flexpen Sliding Scale -) 0 units SQ Q6HPO [facility] PRN Reason: Protocol Last Admin: 08/12/15 06:33 Dose: 2 units Insulin Aspart (Novolog Flexpen -) 3 units SQ Q6HPO [facility] Last Admin: 08/12/15 06:32 Dose: 3 units Insulin Detemir (Levemir Flexpen -) 25 units SQ HS [facility] Last Admin: 08/11/15 23:12 Dose: 25 units Lisinopril (Prinivil -) 20 mg GT DAILY [facility] Last Admin: 08/12/15 10:10 Dose: 20 mg Metoprolol Tartrate (Lopressor Injection -) 5 mg IVPB Q6H PRN PRN Reason: HYPERTENSION Metoprolol Tartrate (Lopressor -) 100 mg GT BID [facility] Last Admin: 08/12/15 10:11 Dose: 100 mg Multivitamins (Thera-Plus -) 5 ml GT DAILY [facility] Last Admin: 08/12/15 10:09 Dose: 5 ml Mupirocin (Bactroban 2% Ointment -) 1 applic TP BID [facility] Last Admin: 08/11/15 22:07 Dose: 1 applic Ondansetron HCl (Zofran Injection -) 4 mg IVPB Q6H PRN PRN Reason: NAUSEA Pantoprazole Sodium (Protonix Packets For Oral Suspension -) 40 mg GT DAILY [facility] Last Admin: 08/12/15 10:10 Dose: 40 mg Vancomycin HCl (Vancomycin Oral Solution) 125 mg GT Q6HPO [facility] Last Admin: 08/12/15 06:33 Dose: 125 mg - Objective Vital Signs: Vital Signs Temperature 98.7 F 08/12/15 07:00 Pulse Rate 85 08/12/15 10:00 Respiratory Rate 14 08/12/15 10:00 Blood Pressure 165/88 08/12/15 09:39 O2 Sat by Pulse Oximetry (%) 99 08/12/15 10:00 Eyes: Yes: WNL, Conjunctiva Clear HENT: Yes: WNL, Atraumatic, Normocephalic Neck: Yes: Supple, Trachea Midline, Other (trach collar in place attached to vent) Cardiovascular: Yes: WNL, Regular Rate and Rhythm Respiratory: Yes: WNL, Regular, CTA Bilaterally Gastrointestinal: Yes: WNL, Normal Bowel Sounds Musculoskeletal: Yes: WNL Extremities: Yes: WNL Edema: No Integumentary: Yes: WNL Neurological: Yes: WNL, Alert, Oriented ...Motor Strength: WNL Psychiatric: Yes: WNL Labs: CBC, BMP 08/08/15 08:35 08/08/15 08:35 INR, PTT INR 1.30 (0.86-1.14) H 07/29/15 10:00 Assessment/Plan 75 year old male admitted on 06/26 with GI bleed, course complicated by acute CVA and respiratory failure s/p intubation-->tracheostomy and PEG. 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 diff -cont PO vancomycin via PEG tube DVT proph -venodyne boots
[2015-08-12] MEDS: MUPIROCIN 2% TOPICAL OINTMENT 22 GM TUBE TP SCH ×2 (11:00→22:08)
[2015-08-12] MEDS: COLLAGENASE CLOSTRIDIUM HIST. 30 GRAMS TUBE TP SCH (11:00)
[2015-08-12] MEDS: ACETAMINOPHEN 650 MG/20.3 ML ORAL SOLUTION (CUPS) GT PRN ×2 (12:01→22:19)
--- NOTE | 2015-08-12 14:36 | PN ---
Progress Note (short form) - Note Progress Note: PULMONARY Remains vented, poorly responsive.Febrile overnight. Last Vital Signs Temp Pulse Resp BP Pulse Ox 101.8 F H 111 H 16 165/88 97 08/12/15 11:10 08/12/15 10:00 08/12/15 12:10 08/12/15 09:39 08/12/15 12:10 Gen: intubated, poorly responsive Heart: RRR Lung: decreased breath sounds at the bases Abd: soft, nontender, dressing dry Ext: + edema CBC, BMP 08/08/15 08:35 08/08/15 08:35 Active Medications Acetaminophen (Tylenol Oral Solution -) 650 mg GT Q6H PRN PRN Reason: FEVER Last Admin: 08/12/15 12:01 Dose: 650 mg Amino Acids (Prostat Sugar-Free Packet -) 30 ml GT BID [facility] Last Admin: 08/12/15 10:10 Dose: 30 ml Amlodipine Besylate (Norvasc -) 10 mg GT DAILY [facility] Last Admin: 08/12/15 10:09 Dose: 10 mg Chlorhexidine Gluconate (Peridex -) 15 ml MM BID [facility] Last Admin: 08/12/15 10:08 Dose: 15 ml Collagenase (Santyl -) 1 applic TP DAILY [facility] Last Admin: 08/12/15 11:00 Dose: 1 applic Insulin Aspart (Novolog Flexpen Sliding Scale -) 0 units SQ Q6HPO [facility] PRN Reason: Protocol Last Admin: 08/12/15 11:41 Dose: 4 units Insulin Aspart (Novolog Flexpen -) 3 units SQ Q6HPO [facility] Last Admin: 08/12/15 11:40 Dose: 3 units Insulin Detemir (Levemir Flexpen -) 25 units SQ HS [facility] Last Admin: 08/11/15 23:12 Dose: 25 units Lisinopril (Prinivil -) 20 mg GT DAILY [facility] Last Admin: 08/12/15 10:10 Dose: 20 mg Metoprolol Tartrate (Lopressor Injection -) 5 mg IVPB Q6H PRN PRN Reason: HYPERTENSION Metoprolol Tartrate (Lopressor -) 100 mg GT BID [facility] Last Admin: 08/12/15 10:11 Dose: 100 mg Multivitamins (Thera-Plus -) 5 ml GT DAILY [facility] Last Admin: 08/12/15 10:09 Dose: 5 ml Mupirocin (Bactroban 2% Ointment -) 1 applic TP BID [facility] Last Admin: 08/11/15 22:07 Dose: 1 applic Ondansetron HCl (Zofran Injection -) 4 mg IVPB Q6H PRN PRN Reason: NAUSEA Pantoprazole Sodium (Protonix Packets For Oral Suspension -) 40 mg GT DAILY [facility] Last Admin: 08/12/15 10:10 Dose: 40 mg Vancomycin HCl (Vancomycin Oral Solution) 125 mg GT Q6HPO [facility] Last Admin: 08/12/15 12:03 Dose: 125 mg A/P Acute Respiratory Failure s/p Tracheostomy Acute CVA/Anoxic Brain Injury Acute Lower Diverticular GI Bleed Acute Blood Loss Anemia s/p Pneumonia HTN DM CKD + C Diff Ag Fever - antibiotics per ID - enteral feeds - DVT/GI prophylaxis - continue discussions with family regarding goals of care - poor prognosis for meaningful recovery
[2015-08-12] MEDS: INSULIN DETEMIR SQ SCH (22:10)
[2015-08-13] MEDS: INSULIN SLIDING SCALE (NOVOLOG) 1 VIAL SQ SCH ×5 (00:30→23:15)
[2015-08-13] MEDS: VANCOMYCIN 250 MG/5 ML ORAL SOLUTION GT SCH ×3 (00:31→13:27)
[2015-08-13] MEDS: INSULIN ASPART SQ SCH ×5 (00:31→23:16)
[2015-08-13] MEDS: ACETAMINOPHEN 650 MG/20.3 ML ORAL SOLUTION (CUPS) GT PRN ×2 (06:08→11:06)
[2015-08-13] MEDS: MUPIROCIN 2% TOPICAL OINTMENT 22 GM TUBE TP SCH ×2 (11:02→21:05)
[2015-08-13] MEDS: amLODIPine BESYLATE 10 MG TABLET (FP) GT SCH (11:03)
[2015-08-13] MEDS: METOPROLOL TARTRATE 50 MG TABLET (FP) GT SCH ×2 (11:03→21:05)
[2015-08-13] MEDS: AMINO ACIDS/PROTEIN HYDROLYS SUGAR-FREE 30 ML PACKET GT SCH ×2 (11:04→21:06)
[2015-08-13] MEDS: LISINOPRIL 20 MG TABLET (FP) GT SCH (11:04)
[2015-08-13] MEDS: COLLAGENASE CLOSTRIDIUM HIST. 30 GRAMS TUBE TP SCH (11:04)
[2015-08-13] MEDS: CHLORHEXIDINE GLUCONATE 0.12% 15ML CUP MM SCH ×2 (11:04→21:06)
[2015-08-13] MEDS: PANTOPRAZOLE SOD 40 MG SUSPENSION PACKET GT SCH (11:04)
[2015-08-13] MEDS: MULTIVITAMINS THERAPEUTIC GT SCH (11:05)
--- NOTE | 2015-08-13 13:08 | PN ---
Progress Note, Physician History of Present Illness: pulmonary no change,pooorly responsive on vent support,febrile 102.1 - Current Medication List Current Medications: Active Medications Acetaminophen (Tylenol Oral Solution -) 650 mg GT Q6H PRN PRN Reason: FEVER Last Admin: 08/13/15 11:06 Dose: 650 mg Amino Acids (Prostat Sugar-Free Packet -) 30 ml GT BID [facility] Last Admin: 08/13/15 11:04 Dose: 30 ml Amlodipine Besylate (Norvasc -) 10 mg GT DAILY [facility] Last Admin: 08/13/15 11:03 Dose: 10 mg Chlorhexidine Gluconate (Peridex -) 15 ml MM BID [facility] Last Admin: 08/13/15 11:04 Dose: 15 ml Collagenase (Santyl -) 1 applic TP DAILY [facility] Last Admin: 08/13/15 11:04 Dose: 1 applic Insulin Aspart (Novolog Flexpen Sliding Scale -) 0 units SQ Q6HPO [facility] PRN Reason: Protocol Last Admin: 08/13/15 05:44 Dose: 4 units Insulin Aspart (Novolog Flexpen -) 3 units SQ Q6HPO [facility] Last Admin: 08/13/15 05:45 Dose: 3 units Insulin Detemir (Levemir Flexpen -) 25 units SQ HS [facility] Last Admin: 08/12/15 22:10 Dose: 25 units Lisinopril (Prinivil -) 20 mg GT DAILY [facility] Last Admin: 08/13/15 11:04 Dose: 20 mg Metoprolol Tartrate (Lopressor Injection -) 5 mg IVPB Q6H PRN PRN Reason: HYPERTENSION Metoprolol Tartrate (Lopressor -) 100 mg GT BID [facility] Last Admin: 08/13/15 11:03 Dose: 100 mg Multivitamins (Thera-Plus -) 5 ml GT DAILY [facility] Last Admin: 08/13/15 11:05 Dose: 5 ml Mupirocin (Bactroban 2% Ointment -) 1 applic TP BID [facility] Last Admin: 08/13/15 11:02 Dose: 1 applic Ondansetron HCl (Zofran Injection -) 4 mg IVPB Q6H PRN PRN Reason: NAUSEA Pantoprazole Sodium (Protonix Packets For Oral Suspension -) 40 mg GT DAILY [facility] Last Admin: 08/13/15 11:04 Dose: 40 mg Vancomycin HCl (Vancomycin Oral Solution) 125 mg GT Q6HPO [facility] Last Admin: 08/13/15 05:45 Dose: 125 mg - Objective Vital Signs: Vital Signs Temperature 102.1 F H 08/13/15 11:00 Pulse Rate 116 H 08/13/15 11:00 Respiratory Rate 20 08/13/15 11:00 Blood Pressure 148/88 08/13/15 11:00 O2 Sat by Pulse Oximetry (%) 98 08/13/15 09:50 Constitutional: Yes: Thin, Other (poorly responsive) Eyes: Yes: WNL HENT: Yes: WNL Neck: Yes: Supple (trach) Cardiovascular: Yes: Regular Rate and Rhythm, S1, S2 Respiratory: Yes: Rhonchi (scattered lamien rhonchi) Gastrointestinal: Yes: WNL Extremities: Yes: WNL Edema: No Labs: Problem List - Problems (1) Anoxic brain damage Code: G93.1 (2) Lower GI bleed Code: K92.2 (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 - enteral feeds - DVT/GI prophylaxis - cultures - Prognosis poor - ID f/u DR HENRY
--- NOTE | 2015-08-13 14:45 | PN ---
Progress Note, Physician History of Present Illness: pt seen and evaluated at the bedside - Current Medication List Current Medications: Active Medications Acetaminophen (Tylenol Oral Solution -) 650 mg GT Q6H PRN PRN Reason: FEVER Last Admin: 08/13/15 11:06 Dose: 650 mg Amino Acids (Prostat Sugar-Free Packet -) 30 ml GT BID [facility] Last Admin: 08/13/15 11:04 Dose: 30 ml Amlodipine Besylate (Norvasc -) 10 mg GT DAILY [facility] Last Admin: 08/13/15 11:03 Dose: 10 mg Chlorhexidine Gluconate (Peridex -) 15 ml MM BID [facility] Last Admin: 08/13/15 11:04 Dose: 15 ml Collagenase (Santyl -) 1 applic TP DAILY [facility] Last Admin: 08/13/15 11:04 Dose: 1 applic Insulin Aspart (Novolog Flexpen Sliding Scale -) 0 units SQ Q6HPO [facility] PRN Reason: Protocol Last Admin: 08/13/15 13:26 Dose: 4 units Insulin Aspart (Novolog Flexpen -) 3 units SQ Q6HPO [facility] Last Admin: 08/13/15 13:25 Dose: 3 units Insulin Detemir (Levemir Flexpen -) 25 units SQ HS [facility] Last Admin: 08/12/15 22:10 Dose: 25 units Lisinopril (Prinivil -) 20 mg GT DAILY [facility] Last Admin: 08/13/15 11:04 Dose: 20 mg Metoprolol Tartrate (Lopressor Injection -) 5 mg IVPB Q6H PRN PRN Reason: HYPERTENSION Metoprolol Tartrate (Lopressor -) 100 mg GT BID [facility] Last Admin: 08/13/15 11:03 Dose: 100 mg Multivitamins (Thera-Plus -) 5 ml GT DAILY [facility] Last Admin: 08/13/15 11:05 Dose: 5 ml Mupirocin (Bactroban 2% Ointment -) 1 applic TP BID [facility] Last Admin: 08/13/15 11:02 Dose: 1 applic Ondansetron HCl (Zofran Injection -) 4 mg IVPB Q6H PRN PRN Reason: NAUSEA Pantoprazole Sodium (Protonix Packets For Oral Suspension -) 40 mg GT DAILY [facility] Last Admin: 08/13/15 11:04 Dose: 40 mg - Objective Vital Signs: Vital Signs Temperature 102.1 F H 08/13/15 11:00 Pulse Rate 116 H 08/13/15 11:00 Respiratory Rate 18 08/13/15 13:32 Blood Pressure 148/88 08/13/15 11:00 O2 Sat by Pulse Oximetry (%) 98 08/13/15 09:50 Constitutional: Yes: Well Nourished, No Distress, Calm Eyes: Yes: WNL, Conjunctiva Clear HENT: Yes: WNL, Atraumatic, Normocephalic Neck: Yes: Supple, Trachea Midline, Other (trach collar in place attatched to vent) Cardiovascular: Yes: WNL, Regular Rate and Rhythm Respiratory: Yes: WNL, Regular, CTA Bilaterally Gastrointestinal: Yes: WNL, Normal Bowel Sounds Musculoskeletal: Yes: WNL Extremities: Yes: WNL Edema: No Integumentary: Yes: WNL Neurological: Yes: WNL, Alert, Oriented ...Motor Strength: WNL Psychiatric: Yes: WNL Labs: CBC, BMP 08/08/15 08:35 08/08/15 08:35 INR, PTT INR 1.30 (0.86-1.14) H 07/29/15 10:00 Assessment/Plan 75 year old male admitted on 06/26 with GI bleed, course complicated by acute CVA and respiratory failure s/p intubation-->tracheostomy and PEG. 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 diff -cont PO vancomycin via PEG tube DVT proph -venodyne boots
[2015-08-13 15:44] LABS: BASOPHIL 0.5 % (0-2.0); EOSINOPHIL 1.5 % (0-4.5); MCH 28.3 pg (25.7-33.7); MCHC 31.1 g/dl (32.0-35.9); MEAN PLT VOLUME 8.5 fl (7.5-11.1); PLATELET COUNT 271 K/MM3 (134-434); RDW 15.6 % (11.9-15.9)
[2015-08-13 16:42] LABS: CALCIUM 9.2 mg/dL (8.5-10.1); CREATININE 0.6 mg/dL (0.6-1.3)
[2015-08-13] MEDS: IBUPROFEN 100 MG/5 ML UNIT DOSE CUPS PO PRN ×2 (17:23→23:17)
[2015-08-13] MEDS: INSULIN DETEMIR SQ SCH (21:05)
[2015-08-13] MEDS: VANCOMYCIN 250 MG/5 ML ORAL SOLUTION PO SCH (23:17)
[2015-08-14] MEDS: INSULIN SLIDING SCALE (NOVOLOG) 1 VIAL SQ SCH ×4 (05:50→23:21)
[2015-08-14] MEDS: INSULIN ASPART SQ SCH ×4 (05:50→23:21)
[2015-08-14] MEDS: VANCOMYCIN 250 MG/5 ML ORAL SOLUTION PO SCH ×4 (05:52→23:22)
[2015-08-14] MEDS: ACETAMINOPHEN 650 MG/20.3 ML ORAL SOLUTION (CUPS) GT PRN ×3 (05:53→22:45)
[2015-08-14] MEDS: LISINOPRIL 20 MG TABLET (FP) GT SCH (09:17)
[2015-08-14] MEDS: amLODIPine BESYLATE 10 MG TABLET (FP) GT SCH (09:17)
[2015-08-14] MEDS: MUPIROCIN 2% TOPICAL OINTMENT 22 GM TUBE TP SCH ×2 (09:17→22:27)
[2015-08-14] MEDS: METOPROLOL TARTRATE 50 MG TABLET (FP) GT SCH ×2 (09:17→22:27)
[2015-08-14] MEDS: AMINO ACIDS/PROTEIN HYDROLYS SUGAR-FREE 30 ML PACKET GT SCH ×2 (09:18→22:28)
[2015-08-14] MEDS: CHLORHEXIDINE GLUCONATE 0.12% 15ML CUP MM SCH ×2 (09:18→22:28)
[2015-08-14] MEDS: PANTOPRAZOLE SOD 40 MG SUSPENSION PACKET GT SCH (09:18)
[2015-08-14] MEDS: MULTIVITAMINS THERAPEUTIC GT SCH (09:19)
[2015-08-14 09:20] LABS: URINE APPEARANCE CLEAR; URINE BILIRUBIN NEGATIVE (NEGATIVE); URINE BLOOD NEGATIVE (NEGATIVE); URINE COLOR YELLOW; URINE GLUCOSE (UA) 1+ (NEGATIVE); URINE KETONE NEGATIVE (NEGATIVE); URINE LEUK ESTERASE NEGATIVE (NEGATIVE); URINE NITRITE NEGATIVE (NEGATIVE); URINE PROTEIN NEGATIVE (NEGATIVE); URINE UROBILINOGEN NEGATIVE E.U./dl (0.2-1.0)
[2015-08-14] MEDS: COLLAGENASE CLOSTRIDIUM HIST. 30 GRAMS TUBE TP SCH (10:33)
--- NOTE | 2015-08-14 11:01 | PN ---
Progress Note, Physician History of Present Illness: pt seen and evaluated at the bedside - Current Medication List Current Medications: Active Medications Acetaminophen (Tylenol Oral Solution -) 650 mg GT Q6H PRN PRN Reason: FEVER Last Admin: 08/14/15 05:53 Dose: 650 mg Amino Acids (Prostat Sugar-Free Packet -) 30 ml GT BID [facility] Last Admin: 08/14/15 09:18 Dose: 30 ml Amlodipine Besylate (Norvasc -) 10 mg GT DAILY [facility] Last Admin: 08/14/15 09:17 Dose: 10 mg Chlorhexidine Gluconate (Peridex -) 15 ml MM BID [facility] Last Admin: 08/14/15 09:18 Dose: 15 ml Collagenase (Santyl -) 1 applic TP DAILY [facility] Last Admin: 08/14/15 10:33 Dose: 1 applic Ibuprofen (Motrin Oral Suspension -) 200 mg PO Q6H PRN PRN Reason: FEVER Last Admin: 08/13/15 23:17 Dose: 200 mg Insulin Aspart (Novolog Flexpen Sliding Scale -) 0 units SQ Q6HPO [facility] PRN Reason: Protocol Last Admin: 08/14/15 05:50 Dose: 2 units Insulin Aspart (Novolog Flexpen -) 3 units SQ Q6HPO [facility] Last Admin: 08/14/15 05:50 Dose: 3 units Insulin Detemir (Levemir Flexpen -) 25 units SQ HS [facility] Last Admin: 08/13/15 21:05 Dose: 25 units Lisinopril (Prinivil -) 20 mg GT DAILY [facility] Last Admin: 08/14/15 09:17 Dose: 20 mg Metoprolol Tartrate (Lopressor Injection -) 5 mg IVPB Q6H PRN PRN Reason: HYPERTENSION Metoprolol Tartrate (Lopressor -) 100 mg GT BID [facility] Last Admin: 08/14/15 09:17 Dose: 100 mg Multivitamins (Thera-Plus -) 5 ml GT DAILY [facility] Last Admin: 08/14/15 09:19 Dose: 5 ml Mupirocin (Bactroban 2% Ointment -) 1 applic TP BID [facility] Last Admin: 08/14/15 09:17 Dose: 1 applic Ondansetron HCl (Zofran Injection -) 4 mg IVPB Q6H PRN PRN Reason: NAUSEA Pantoprazole Sodium (Protonix Packets For Oral Suspension -) 40 mg GT DAILY [facility] Last Admin: 08/14/15 09:18 Dose: 40 mg Vancomycin HCl (Vancomycin Oral Solution) 250 mg PO Q6HPO [facility] - Objective Vital Signs: Vital Signs Temperature 102.6 F H 08/13/15 23:00 Pulse Rate 106 H 08/13/15 18:30 Respiratory Rate 16 08/14/15 06:09 Blood Pressure 146/88 08/13/15 18:30 O2 Sat by Pulse Oximetry (%) 97 08/13/15 22:00 Constitutional: Yes: Well Nourished, No Distress, Calm Eyes: Yes: WNL, Conjunctiva Clear HENT: Yes: WNL, Atraumatic, Normocephalic Neck: Yes: Supple, Trachea Midline, Other (trach collar in place attatched to vent) Cardiovascular: Yes: WNL, Regular Rate and Rhythm Respiratory: Yes: WNL, Regular, CTA Bilaterally Gastrointestinal: Yes: Normal Bowel Sounds, Other (PEG tube in place) Musculoskeletal: Yes: WNL Extremities: Yes: WNL Edema: No Integumentary: Yes: WNL Neurological: Yes: WNL, Alert, Oriented ...Motor Strength: WNL Psychiatric: Yes: WNL Labs: CBC, BMP 08/13/15 15:00 08/13/15 15:00 INR, PTT INR 1.30 (0.86-1.14) H 07/29/15 10:00 Assessment/Plan 75 year old male admitted on 06/26 with GI bleed, course complicated by acute CVA and respiratory failure s/p intubation-->tracheostomy and PEG. 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 diff -follow up blood cultures HTN -cont amlodipine -cont lisinopril -cont metoprolol C. diff -cont PO vancomycin via PEG tube DVT proph -venodyne boots
--- NOTE | 2015-08-14 11:05 | PN ---
Progress Note, Physician History of Present Illness: Recurrent fever noted Pt awake, non verbal No acute distress Not acutely toxic appearing - Current Medication List Current Medications: Active Medications Acetaminophen (Tylenol Oral Solution -) 650 mg GT Q6H PRN PRN Reason: FEVER Last Admin: 08/14/15 05:53 Dose: 650 mg Amino Acids (Prostat Sugar-Free Packet -) 30 ml GT BID [facility] Last Admin: 08/14/15 09:18 Dose: 30 ml Amlodipine Besylate (Norvasc -) 10 mg GT DAILY [facility] Last Admin: 08/14/15 09:17 Dose: 10 mg Chlorhexidine Gluconate (Peridex -) 15 ml MM BID [facility] Last Admin: 08/14/15 09:18 Dose: 15 ml Collagenase (Santyl -) 1 applic TP DAILY [facility] Last Admin: 08/14/15 10:33 Dose: 1 applic Ibuprofen (Motrin Oral Suspension -) 200 mg PO Q6H PRN PRN Reason: FEVER Last Admin: 08/13/15 23:17 Dose: 200 mg Insulin Aspart (Novolog Flexpen Sliding Scale -) 0 units SQ Q6HPO [facility] PRN Reason: Protocol Last Admin: 08/14/15 05:50 Dose: 2 units Insulin Aspart (Novolog Flexpen -) 3 units SQ Q6HPO [facility] Last Admin: 08/14/15 05:50 Dose: 3 units Insulin Detemir (Levemir Flexpen -) 25 units SQ HS [facility] Last Admin: 08/13/15 21:05 Dose: 25 units Lisinopril (Prinivil -) 20 mg GT DAILY [facility] Last Admin: 08/14/15 09:17 Dose: 20 mg Metoprolol Tartrate (Lopressor Injection -) 5 mg IVPB Q6H PRN PRN Reason: HYPERTENSION Metoprolol Tartrate (Lopressor -) 100 mg GT BID [facility] Last Admin: 08/14/15 09:17 Dose: 100 mg Multivitamins (Thera-Plus -) 5 ml GT DAILY [facility] Last Admin: 08/14/15 09:19 Dose: 5 ml Mupirocin (Bactroban 2% Ointment -) 1 applic TP BID [facility] Last Admin: 08/14/15 09:17 Dose: 1 applic Ondansetron HCl (Zofran Injection -) 4 mg IVPB Q6H PRN PRN Reason: NAUSEA Pantoprazole Sodium (Protonix Packets For Oral Suspension -) 40 mg GT DAILY [facility] Last Admin: 08/14/15 09:18 Dose: 40 mg Vancomycin HCl (Vancomycin Oral Solution) 250 mg PO Q6HPO [facility] - Objective Vital Signs: Vital Signs Temperature 102.6 F H 08/13/15 23:00 Pulse Rate 106 H 08/13/15 18:30 Respiratory Rate 16 08/14/15 06:09 Blood Pressure 146/88 08/13/15 18:30 O2 Sat by Pulse Oximetry (%) 97 08/13/15 22:00 Constitutional: Yes: No Distress Eyes: Yes: Conjunctiva Clear Cardiovascular: Yes: Regular Rate and Rhythm, S1, S2 Respiratory: Yes: Mechanically Ventilated Gastrointestinal: Yes: Normal Bowel Sounds, Soft. No: Tenderness Edema: Yes Labs: CBC, BMP 08/13/15 15:00 08/13/15 15:00 INR, PTT INR 1.30 (0.86-1.14) H 07/29/15 10:00 Assessment/Plan recurrent fever ? source ? non-infectious ( atelectasis on CXR) Respiratory failure s/p Lower GI bleed + C difficile Leukocytosis Repeat blood, urine c/s Continue vancomycin via GT for C difficile
--- NOTE | 2015-08-14 12:37 | PN ---
Progress Note, Physician History of Present Illness: PULMONARY NO CHANGE,POORLY RESPONSIVE ON VENT SUPPORT AC MODE. REMAINS [place]RILE - Current Medication List Current Medications: Active Medications Acetaminophen (Tylenol Oral Solution -) 650 mg GT Q6H PRN PRN Reason: FEVER Last Admin: 08/14/15 05:53 Dose: 650 mg Amino Acids (Prostat Sugar-Free Packet -) 30 ml GT BID [facility] Last Admin: 08/14/15 09:18 Dose: 30 ml Amlodipine Besylate (Norvasc -) 10 mg GT DAILY [facility] Last Admin: 08/14/15 09:17 Dose: 10 mg Chlorhexidine Gluconate (Peridex -) 15 ml MM BID [facility] Last Admin: 08/14/15 09:18 Dose: 15 ml Collagenase (Santyl -) 1 applic TP DAILY [facility] Last Admin: 08/14/15 10:33 Dose: 1 applic Ibuprofen (Motrin Oral Suspension -) 200 mg PO Q6H PRN PRN Reason: FEVER Last Admin: 08/13/15 23:17 Dose: 200 mg Insulin Aspart (Novolog Flexpen Sliding Scale -) 0 units SQ Q6HPO [facility] PRN Reason: Protocol Last Admin: 08/14/15 05:50 Dose: 2 units Insulin Aspart (Novolog Flexpen -) 3 units SQ Q6HPO [facility] Last Admin: 08/14/15 05:50 Dose: 3 units Insulin Detemir (Levemir Flexpen -) 25 units SQ HS [facility] Last Admin: 08/13/15 21:05 Dose: 25 units Lisinopril (Prinivil -) 20 mg GT DAILY [facility] Last Admin: 08/14/15 09:17 Dose: 20 mg Metoprolol Tartrate (Lopressor Injection -) 5 mg IVPB Q6H PRN PRN Reason: HYPERTENSION Metoprolol Tartrate (Lopressor -) 100 mg GT BID [facility] Last Admin: 08/14/15 09:17 Dose: 100 mg Multivitamins (Thera-Plus -) 5 ml GT DAILY [facility] Last Admin: 08/14/15 09:19 Dose: 5 ml Mupirocin (Bactroban 2% Ointment -) 1 applic TP BID [facility] Last Admin: 08/14/15 09:17 Dose: 1 applic Ondansetron HCl (Zofran Injection -) 4 mg IVPB Q6H PRN PRN Reason: NAUSEA Pantoprazole Sodium (Protonix Packets For Oral Suspension -) 40 mg GT DAILY [facility] Last Admin: 08/14/15 09:18 Dose: 40 mg Vancomycin HCl (Vancomycin Oral Solution) 250 mg PO Q6HPO [facility] - Objective Vital Signs: Vital Signs Temperature 102.6 F H 08/13/15 23:00 Pulse Rate 106 H 08/14/15 10:05 Respiratory Rate 14 08/14/15 10:05 Blood Pressure 146/88 08/13/15 18:30 O2 Sat by Pulse Oximetry (%) 97 08/14/15 10:05 Constitutional: Yes: Calm, Thin Eyes: Yes: WNL HENT: Yes: WNL Neck: Yes: WNL Cardiovascular: Yes: Regular Rate and Rhythm, S1, S2 Respiratory: Yes: Rhonchi, Other (RHONCHI) Gastrointestinal: Yes: Normal Bowel Sounds, Soft Extremities: Yes: WNL Edema: No Labs: CBC, BMP 08/13/15 15:00 08/13/15 15:00 INR, PTT INR 1.30 (0.86-1.14) H 07/29/15 10:00 Problem List - Problems (1) Anoxic brain damage Code: G93.1 (2) Lower GI bleed Code: K92.2 (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 - enteral feeds - DVT/GI prophylaxis - Prognosis poor DR HENRY
[2015-08-14] MEDS: INSULIN DETEMIR SQ SCH (23:20)
[2015-08-15] MEDS: INSULIN ASPART SQ SCH ×4 (07:06→23:31)
[2015-08-15] MEDS: INSULIN SLIDING SCALE (NOVOLOG) 1 VIAL SQ SCH ×4 (07:08→23:31)
[2015-08-15] MEDS: VANCOMYCIN 250 MG/5 ML ORAL SOLUTION PO SCH ×5 (07:08→23:32)
[2015-08-15 07:57] LABS: BASOPHIL 0.5 % (0-2.0); EOSINOPHIL 2.7 % (0-4.5); MCH 29.3 pg (25.7-33.7); MCHC 32.4 g/dl (32.0-35.9); MEAN CELL VOLUME 90.3 fl (80-96); MEAN PLT VOLUME 8.5 fl (7.5-11.1); PLATELET COUNT 232 K/MM3 (134-434); RDW 15.2 % (11.9-15.9); WHITE BLOOD COUNT 15.1 K/mm3 (4.0-10.0)
[2015-08-15 08:24] LABS: CALCIUM 9.6 mg/dL (8.5-10.1); CREATININE 0.6 mg/dL (0.6-1.3)
[2015-08-15] MEDS: amLODIPine BESYLATE 10 MG TABLET (FP) GT SCH (10:38)
[2015-08-15] MEDS: LISINOPRIL 20 MG TABLET (FP) GT SCH (10:38)
[2015-08-15] MEDS: METOPROLOL TARTRATE 50 MG TABLET (FP) GT SCH ×2 (10:38→22:20)
[2015-08-15] MEDS: AMINO ACIDS/PROTEIN HYDROLYS SUGAR-FREE 30 ML PACKET GT SCH ×2 (10:39→22:21)
[2015-08-15] MEDS: PANTOPRAZOLE SOD 40 MG SUSPENSION PACKET GT SCH (10:39)
[2015-08-15] MEDS: CHLORHEXIDINE GLUCONATE 0.12% 15ML CUP MM SCH ×2 (10:39→22:20)
[2015-08-15] MEDS: MULTIVITAMINS THERAPEUTIC GT SCH (10:40)
[2015-08-15] MEDS: IBUPROFEN 100 MG/5 ML UNIT DOSE CUPS PO PRN ×2 (12:00→18:03)
[2015-08-15] MEDS: MUPIROCIN 2% TOPICAL OINTMENT 22 GM TUBE TP SCH ×2 (12:00→22:20)
[2015-08-15] MEDS: COLLAGENASE CLOSTRIDIUM HIST. 30 GRAMS TUBE TP SCH (12:00)
--- NOTE | 2015-08-15 12:10 | PN ---
Progress Note, Physician History of Present Illness: pt seen and evaluated at the bedside - Current Medication List Current Medications: Active Medications Acetaminophen (Tylenol Oral Solution -) 650 mg GT Q6H PRN PRN Reason: FEVER Last Admin: 08/14/15 22:45 Dose: 650 mg Amino Acids (Prostat Sugar-Free Packet -) 30 ml GT BID [facility] Last Admin: 08/15/15 10:39 Dose: 30 ml Amlodipine Besylate (Norvasc -) 10 mg GT DAILY [facility] Last Admin: 08/15/15 10:38 Dose: 10 mg Chlorhexidine Gluconate (Peridex -) 15 ml MM BID [facility] Last Admin: 08/15/15 10:39 Dose: 15 ml Collagenase (Santyl -) 1 applic TP DAILY [facility] Last Admin: 08/14/15 10:33 Dose: 1 applic Ibuprofen (Motrin Oral Suspension -) 200 mg PO Q6H PRN PRN Reason: FEVER Last Admin: 08/13/15 23:17 Dose: 200 mg Insulin Aspart (Novolog Flexpen Sliding Scale -) 0 units SQ Q6HPO [facility] PRN Reason: Protocol Last Admin: 08/15/15 11:14 Dose: 4 units Insulin Aspart (Novolog Flexpen -) 3 units SQ Q6HPO [facility] Last Admin: 08/15/15 11:14 Dose: 3 units Insulin Detemir (Levemir Flexpen -) 25 units SQ HS [facility] Last Admin: 08/14/15 23:20 Dose: 25 units Lisinopril (Prinivil -) 20 mg GT DAILY [facility] Last Admin: 08/15/15 10:38 Dose: 20 mg Metoprolol Tartrate (Lopressor Injection -) 5 mg IVPB Q6H PRN PRN Reason: HYPERTENSION Metoprolol Tartrate (Lopressor -) 100 mg GT BID [facility] Last Admin: 08/15/15 10:38 Dose: 100 mg Multivitamins (Thera-Plus -) 5 ml GT DAILY [facility] Last Admin: 08/15/15 10:40 Dose: 5 ml Mupirocin (Bactroban 2% Ointment -) 1 applic TP BID [facility] Last Admin: 08/14/15 22:27 Dose: 1 applic Ondansetron HCl (Zofran Injection -) 4 mg IVPB Q6H PRN PRN Reason: NAUSEA Pantoprazole Sodium (Protonix Packets For Oral Suspension -) 40 mg GT DAILY [facility] Last Admin: 08/15/15 10:39 Dose: 40 mg Vancomycin HCl (Vancomycin Oral Solution) 250 mg PO Q6HPO [facility] Last Admin: 08/15/15 07:08 Dose: 250 mg - Objective Vital Signs: Vital Signs Temperature 99.2 F 08/15/15 09:00 Pulse Rate 111 H 08/15/15 09:00 Respiratory Rate 15 08/15/15 10:15 Blood Pressure 153/91 08/15/15 09:00 O2 Sat by Pulse Oximetry (%) 100 08/14/15 22:00 Constitutional: Yes: Well Nourished, No Distress, Calm Eyes: Yes: WNL, Conjunctiva Clear HENT: Yes: WNL, Atraumatic, Normocephalic Neck: Yes: WNL, Supple, Trachea Midline Cardiovascular: Yes: WNL, Regular Rate and Rhythm Respiratory: Yes: WNL, Regular, CTA Bilaterally Gastrointestinal: Yes: WNL, Normal Bowel Sounds Musculoskeletal: Yes: WNL Extremities: Yes: WNL Edema: No Integumentary: Yes: WNL Neurological: Yes: WNL, Alert, Oriented ...Motor Strength: WNL Psychiatric: Yes: WNL Labs: CBC, BMP 08/15/15 06:00 08/15/15 06:00 INR, PTT INR 1.30 (0.86-1.14) H 07/29/15 10:00 Assessment/Plan 75 year old male admitted on 06/26 with GI bleed, course complicated by acute CVA and respiratory failure s/p intubation-->tracheostomy and PEG. 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 diff -follow up blood cultures Hypernatremia -started free water 250 Q6 via PEG -cont to follow sodium HTN -cont amlodipine -cont lisinopril -cont metoprolol C. diff -cont PO vancomycin via PEG tube DVT proph -venodyne boots
--- NOTE | 2015-08-15 12:58 | PN ---
Progress Note, Physician History of Present Illness: PULMONARY NO CHANGE POORLY RESPONSIVE ON VENT SUPPORT AC MODE. - Current Medication List Current Medications: Active Medications Acetaminophen (Tylenol Oral Solution -) 650 mg GT Q6H PRN PRN Reason: FEVER Last Admin: 08/14/15 22:45 Dose: 650 mg Amino Acids (Prostat Sugar-Free Packet -) 30 ml GT BID [facility] Last Admin: 08/15/15 10:39 Dose: 30 ml Amlodipine Besylate (Norvasc -) 10 mg GT DAILY [facility] Last Admin: 08/15/15 10:38 Dose: 10 mg Chlorhexidine Gluconate (Peridex -) 15 ml MM BID [facility] Last Admin: 08/15/15 10:39 Dose: 15 ml Collagenase (Santyl -) 1 applic TP DAILY [facility] Last Admin: 08/14/15 10:33 Dose: 1 applic Ibuprofen (Motrin Oral Suspension -) 200 mg PO Q6H PRN PRN Reason: FEVER Last Admin: 08/13/15 23:17 Dose: 200 mg Insulin Aspart (Novolog Flexpen Sliding Scale -) 0 units SQ Q6HPO [facility] PRN Reason: Protocol Last Admin: 08/15/15 11:14 Dose: 4 units Insulin Aspart (Novolog Flexpen -) 3 units SQ Q6HPO [facility] Last Admin: 08/15/15 11:14 Dose: 3 units Insulin Detemir (Levemir Flexpen -) 25 units SQ HS [facility] Last Admin: 08/14/15 23:20 Dose: 25 units Lisinopril (Prinivil -) 20 mg GT DAILY [facility] Last Admin: 08/15/15 10:38 Dose: 20 mg Metoprolol Tartrate (Lopressor Injection -) 5 mg IVPB Q6H PRN PRN Reason: HYPERTENSION Metoprolol Tartrate (Lopressor -) 100 mg GT BID [facility] Last Admin: 08/15/15 10:38 Dose: 100 mg Multivitamins (Thera-Plus -) 5 ml GT DAILY [facility] Last Admin: 08/15/15 10:40 Dose: 5 ml Mupirocin (Bactroban 2% Ointment -) 1 applic TP BID [facility] Last Admin: 08/14/15 22:27 Dose: 1 applic Ondansetron HCl (Zofran Injection -) 4 mg IVPB Q6H PRN PRN Reason: NAUSEA Pantoprazole Sodium (Protonix Packets For Oral Suspension -) 40 mg GT DAILY [facility] Last Admin: 08/15/15 10:39 Dose: 40 mg Vancomycin HCl (Vancomycin Oral Solution) 250 mg PO Q6HPO [facility] Last Admin: 08/15/15 07:08 Dose: 250 mg - Objective Vital Signs: Vital Signs Temperature 101.6 F H 08/15/15 12:00 Pulse Rate 111 H 08/15/15 09:00 Respiratory Rate 15 08/15/15 10:15 Blood Pressure 153/91 08/15/15 09:00 O2 Sat by Pulse Oximetry (%) 100 08/14/15 22:00 Constitutional: Yes: Thin, Other (POORLY RESPONSIVE) Eyes: Yes: WNL HENT: Yes: WNL Neck: Yes: Supple (TRAC) Cardiovascular: Yes: Pulse Irregular, S1, S2 Respiratory: Yes: Rhonchi (FEW RHONCHI) Gastrointestinal: Yes: Normal Bowel Sounds, Soft Extremities: Yes: WNL Edema: No Labs: CBC, BMP 08/15/15 06:00 08/15/15 06:00 INR, PTT INR 1.30 (0.86-1.14) H 07/29/15 10:00 Problem List - Problems (1) Anoxic brain damage Code: G93.1 (2) Lower GI bleed Code: K92.2 (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 - enteral feeds - DVT/GI prophylaxis - Prognosis poor DR HENRY
[2015-08-15] MEDS: ACETAMINOPHEN 650 MG/20.3 ML ORAL SOLUTION (CUPS) GT PRN (22:21)
[2015-08-15] MEDS: INSULIN DETEMIR SQ SCH (23:30)
[2015-08-16] MEDS: INSULIN ASPART SQ SCH (06:20)
[2015-08-16] MEDS: INSULIN SLIDING SCALE (NOVOLOG) 1 VIAL SQ SCH (06:21)
[2015-08-16] MEDS: VANCOMYCIN 250 MG/5 ML ORAL SOLUTION PO SCH ×3 (06:22→18:01)
[2015-08-16 07:47] LABS: BASOPHIL 0.5 % (0-2.0); EOSINOPHIL 2.9 % (0-4.5); MCH 29.2 pg (25.7-33.7); MCHC 32.5 g/dl (32.0-35.9); MEAN PLT VOLUME 8.5 fl (7.5-11.1); NEUTROPHILS 79.8 % (42.8-82.8); PLATELET COUNT 211 K/MM3 (134-434); RDW 15.3 % (11.9-15.9)
[2015-08-16 08:06] LABS: CALCIUM 9.5 mg/dL (8.5-10.1); CREATININE 0.7 mg/dL (0.6-1.3)
[2015-08-16] MEDS: METOPROLOL TARTRATE 50 MG TABLET (FP) GT SCH ×2 (10:24→23:16)
[2015-08-16] MEDS: CHLORHEXIDINE GLUCONATE 0.12% 15ML CUP MM SCH (10:25)
[2015-08-16] MEDS: AMINO ACIDS/PROTEIN HYDROLYS SUGAR-FREE 30 ML PACKET GT SCH ×2 (10:25→23:18)
[2015-08-16] MEDS: LISINOPRIL 20 MG TABLET (FP) GT SCH (10:25)
[2015-08-16] MEDS: amLODIPine BESYLATE 10 MG TABLET (FP) GT SCH (10:25)
[2015-08-16] MEDS: PANTOPRAZOLE SOD 40 MG SUSPENSION PACKET GT SCH (10:26)
[2015-08-16] MEDS: MULTIVITAMINS THERAPEUTIC GT SCH (10:26)
[2015-08-16] MEDS: ACETAMINOPHEN 650 MG/20.3 ML ORAL SOLUTION (CUPS) GT PRN ×2 (10:27→22:20)
[2015-08-16] MEDS: COLLAGENASE CLOSTRIDIUM HIST. 30 GRAMS TUBE TP SCH (11:07)
[2015-08-16] MEDS: MUPIROCIN 2% TOPICAL OINTMENT 22 GM TUBE TP SCH (11:07)
--- NOTE | 2015-08-16 11:31 | PN ---
Progress Note, Physician History of Present Illness: pt seen and evaluated at the bedside - Current Medication List Current Medications: Active Medications Acetaminophen (Tylenol Oral Solution -) 650 mg GT Q6H PRN PRN Reason: FEVER Last Admin: 08/16/15 10:27 Dose: 650 mg Amino Acids (Prostat Sugar-Free Packet -) 30 ml GT BID [facility] Last Admin: 08/16/15 10:25 Dose: 30 ml Amlodipine Besylate (Norvasc -) 10 mg GT DAILY [facility] Last Admin: 08/16/15 10:25 Dose: 10 mg Chlorhexidine Gluconate (Peridex -) 15 ml MM BID [facility] Last Admin: 08/16/15 10:25 Dose: 15 ml Collagenase (Santyl -) 1 applic TP DAILY [facility] Last Admin: 08/16/15 11:07 Dose: 1 applic Ibuprofen (Motrin Oral Suspension -) 200 mg PO Q6H PRN PRN Reason: FEVER Last Admin: 08/15/15 18:03 Dose: 200 mg Insulin Aspart (Novolog Vial) 3 units SQ Q6HPO [facility] Insulin Aspart (Novolog Vial) 0 units SQ Q6HPO [facility] PRN Reason: Protocol Insulin Detemir (Levemir Vial -) [address] [facility] Lisinopril (Prinivil -) 20 mg GT DAILY [facility] Last Admin: 08/16/15 10:25 Dose: 20 mg Metoprolol Tartrate (Lopressor Injection -) 5 mg IVPB Q6H PRN PRN Reason: HYPERTENSION Metoprolol Tartrate (Lopressor -) 100 mg GT BID [facility] Last Admin: 08/16/15 10:24 Dose: 100 mg Multivitamins (Thera-Plus -) 5 ml GT DAILY [facility] Last Admin: 08/16/15 10:26 Dose: 5 ml Mupirocin (Bactroban 2% Ointment -) 1 applic TP BID [facility] Last Admin: 08/16/15 11:07 Dose: 1 applic Ondansetron HCl (Zofran Injection -) 4 mg IVPB Q6H PRN PRN Reason: NAUSEA Pantoprazole Sodium (Protonix Packets For Oral Suspension -) 40 mg GT DAILY [facility] Last Admin: 08/16/15 10:26 Dose: 40 mg Vancomycin HCl (Vancomycin Oral Solution) 250 mg PO Q6HPO [facility] Last Admin: 08/16/15 06:22 Dose: 250 mg - Objective Vital Signs: Vital Signs Temperature 101.7 F H 08/16/15 10:00 Pulse Rate 93 H 08/16/15 10:50 Respiratory Rate 14 08/16/15 10:50 Blood Pressure 159/87 08/16/15 10:00 O2 Sat by Pulse Oximetry (%) 97 08/16/15 10:50 Eyes: Yes: WNL, Conjunctiva Clear HENT: Yes: WNL, Atraumatic, Normocephalic Neck: Yes: Supple, Trachea Midline, Other (trach collar attatched to vent) Cardiovascular: Yes: WNL, Regular Rate and Rhythm Respiratory: Yes: WNL, Regular, CTA Bilaterally Gastrointestinal: Yes: Normal Bowel Sounds, Other (PEG tube in place) Musculoskeletal: Yes: WNL Extremities: Yes: WNL Edema: No Integumentary: Yes: WNL Neurological: Yes: WNL, Alert, Oriented ...Motor Strength: WNL Psychiatric: Yes: WNL Labs: CBC, BMP 08/16/15 06:50 08/16/15 06:50 INR, PTT INR 1.30 (0.86-1.14) H 07/29/15 10:00 Assessment/Plan 75 year old male admitted on 06/26 with GI bleed, course complicated by acute CVA and respiratory failure s/p intubation-->tracheostomy and PEG. 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 diff; will also add flagyl -follow up blood cultures Hypernatremia -started free water 250 Q6 via PEG; will increase to 300 -cont to follow sodium HTN -cont amlodipine -cont lisinopril -cont metoprolol C. diff -cont PO vancomycin via PEG tube DVT proph -venodyne boots
[2015-08-16] MEDS: INSULIN (NOVOLOG) ASPART 100 UNITS/ML 10ML VIAL SQ SCH ×6 (12:40→23:46)
--- NOTE | 2015-08-16 14:48 | PN ---
Progress Note, Physician History of Present Illness: PULMONARY NO CHANGE POORLY RESPONSIVE ON VENT SUPPORT AC MODE. - Current Medication List Current Medications: Active Medications Acetaminophen (Tylenol Oral Solution -) 650 mg GT Q6H PRN PRN Reason: FEVER Last Admin: 08/16/15 10:27 Dose: 650 mg Amino Acids (Prostat Sugar-Free Packet -) 30 ml GT BID [facility] Last Admin: 08/16/15 10:25 Dose: 30 ml Amlodipine Besylate (Norvasc -) 10 mg GT DAILY [facility] Last Admin: 08/16/15 10:25 Dose: 10 mg Chlorhexidine Gluconate (Peridex -) 15 ml MM BID [facility] Last Admin: 08/16/15 10:25 Dose: 15 ml Collagenase (Santyl -) 1 applic TP DAILY [facility] Last Admin: 08/16/15 11:07 Dose: 1 applic Ibuprofen (Motrin Oral Suspension -) 200 mg PO Q6H PRN PRN Reason: FEVER Last Admin: 08/15/15 18:03 Dose: 200 mg Insulin Aspart (Novolog Vial) 3 units SQ Q6HPO [facility] Last Admin: 08/16/15 12:40 Dose: 3 units Insulin Aspart (Novolog Vial) 0 units SQ Q6HPO [facility] PRN Reason: Protocol Last Admin: 08/16/15 12:41 Dose: 4 units Insulin Detemir (Levemir Vial -) 25 units SQ [facility] Lisinopril (Prinivil -) 20 mg GT DAILY [facility] Last Admin: 08/16/15 10:25 Dose: 20 mg Metoprolol Tartrate (Lopressor Injection -) 5 mg IVPB Q6H PRN PRN Reason: HYPERTENSION Metoprolol Tartrate (Lopressor -) 100 mg GT BID [facility] Last Admin: 08/16/15 10:24 Dose: 100 mg Multivitamins (Thera-Plus -) 5 ml GT DAILY [facility] Last Admin: 08/16/15 10:26 Dose: 5 ml Mupirocin (Bactroban 2% Ointment -) 1 applic TP BID [facility] Last Admin: 08/16/15 11:07 Dose: 1 applic Ondansetron HCl (Zofran Injection -) 4 mg IVPB Q6H PRN PRN Reason: NAUSEA Pantoprazole Sodium (Protonix Packets For Oral Suspension -) 40 mg GT DAILY [facility] Last Admin: 08/16/15 10:26 Dose: 40 mg Vancomycin HCl (Vancomycin Oral Solution) 250 mg PO Q6HPO [facility] Last Admin: 08/16/15 12:42 Dose: 250 mg - Objective Vital Signs: Vital Signs Temperature 101.7 F H 08/16/15 10:00 Pulse Rate 93 H 08/16/15 10:50 Respiratory Rate 14 08/16/15 10:50 Blood Pressure 159/87 08/16/15 10:00 O2 Sat by Pulse Oximetry (%) 97 08/16/15 10:50 Constitutional: Yes: Thin, Other (UNRESPONSIVE) Eyes: Yes: WNL HENT: Yes: WNL Neck: Yes: Supple (TRACH) Cardiovascular: Yes: Regular Rate and Rhythm, S1, S2 Respiratory: Yes: Diminished Gastrointestinal: Yes: WNL Extremities: Yes: WNL Edema: No Labs: CBC, BMP 08/16/15 06:50 08/16/15 06:50 INR, PTT INR 1.30 (0.86-1.14) H 07/29/15 10:00 Problem List - Problems (1) Anoxic brain damage Code: G93.1 (2) Lower GI bleed Code: K92.2 (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 - enteral feeds - DVT/GI prophylaxis - Prognosis poor DR HENRY
--- NOTE | 2015-08-16 17:06 | PN ---
Progress Note, Physician History of Present Illness: Awake but not responsive Remains febrile Cultures negative - Current Medication List Current Medications: Active Medications Acetaminophen (Tylenol Oral Solution -) 650 mg GT Q6H PRN PRN Reason: FEVER Last Admin: 08/16/15 10:27 Dose: 650 mg Amino Acids (Prostat Sugar-Free Packet -) 30 ml GT BID [facility] Last Admin: 08/16/15 10:25 Dose: 30 ml Amlodipine Besylate (Norvasc -) 10 mg GT DAILY [facility] Last Admin: 08/16/15 10:25 Dose: 10 mg Chlorhexidine Gluconate (Peridex -) 15 ml MM BID [facility] Last Admin: 08/16/15 10:25 Dose: 15 ml Collagenase (Santyl -) 1 applic TP DAILY [facility] Last Admin: 08/16/15 11:07 Dose: 1 applic Ibuprofen (Motrin Oral Suspension -) 200 mg PO Q6H PRN PRN Reason: FEVER Last Admin: 08/15/15 18:03 Dose: 200 mg Insulin Aspart (Novolog Vial) 3 units SQ Q6HPO [facility] Last Admin: 08/16/15 12:40 Dose: 3 units Insulin Aspart (Novolog Vial) 0 units SQ Q6HPO [facility] PRN Reason: Protocol Last Admin: 08/16/15 12:41 Dose: 4 units Insulin Detemir (Levemir Vial -) 25 units SQ [facility] Lisinopril (Prinivil -) 20 mg GT DAILY [facility] Last Admin: 08/16/15 10:25 Dose: 20 mg Metoprolol Tartrate (Lopressor Injection -) 5 mg IVPB Q6H PRN PRN Reason: HYPERTENSION Metoprolol Tartrate (Lopressor -) 100 mg GT BID [facility] Last Admin: 08/16/15 10:24 Dose: 100 mg Multivitamins (Thera-Plus -) 5 ml GT DAILY [facility] Last Admin: 08/16/15 10:26 Dose: 5 ml Mupirocin (Bactroban 2% Ointment -) 1 applic TP BID [facility] Last Admin: 08/16/15 11:07 Dose: 1 applic Ondansetron HCl (Zofran Injection -) 4 mg IVPB Q6H PRN PRN Reason: NAUSEA Pantoprazole Sodium (Protonix Packets For Oral Suspension -) 40 mg GT DAILY [facility] Last Admin: 08/16/15 10:26 Dose: 40 mg Vancomycin HCl (Vancomycin Oral Solution) 250 mg PO Q6HPO [facility] Last Admin: 08/16/15 12:42 Dose: 250 mg - Objective Vital Signs: Vital Signs Temperature 99.0 F 08/16/15 15:20 Pulse Rate 84 08/16/15 15:20 Respiratory Rate 18 08/16/15 15:20 Blood Pressure 159/87 08/16/15 10:00 O2 Sat by Pulse Oximetry (%) 97 08/16/15 10:50 Constitutional: Yes: Other (chronically il appearing) Eyes: Yes: Conjunctiva Clear Cardiovascular: Yes: Regular Rate and Rhythm, S1, S2 Respiratory: Yes: Mechanically Ventilated Gastrointestinal: Yes: Normal Bowel Sounds, Soft. No: Tenderness Edema: Yes Labs: CBC, BMP 08/16/15 06:50 08/16/15 06:50 INR, PTT INR 1.30 (0.86-1.14) H 07/29/15 10:00 Assessment/Plan recurrent fever ? source ? non-infectious ( atelectasis on CXR) Respiratory failure s/p Lower GI bleed + C difficile Leukocytosis Repeat blood, urine c/s- no growth Continue vancomycin via GT for C difficile
[2015-08-16] MEDS: INSULIN DETEMIR 100 UNITS/ML MDV SQ SCH (23:46)
[2015-08-17] MEDS: MUPIROCIN 2% TOPICAL OINTMENT 22 GM TUBE TP SCH ×3 (00:05→22:00)
[2015-08-17] MEDS: VANCOMYCIN 250 MG/5 ML ORAL SOLUTION PO SCH ×4 (00:17→17:49)
[2015-08-17] MEDS: CHLORHEXIDINE GLUCONATE 0.12% 15ML CUP MM SCH ×3 (00:17→21:14)
[2015-08-17] MEDS: INSULIN (NOVOLOG) ASPART 100 UNITS/ML 10ML VIAL SQ SCH ×6 (06:47→17:50)
[2015-08-17] MEDS: ACETAMINOPHEN 650 MG/20.3 ML ORAL SOLUTION (CUPS) GT PRN ×2 (06:51→15:47)
[2015-08-17] MEDS: MULTIVITAMINS THERAPEUTIC GT SCH (10:57)
[2015-08-17] MEDS: amLODIPine BESYLATE 10 MG TABLET (FP) GT SCH (10:57)
[2015-08-17] MEDS: METOPROLOL TARTRATE 50 MG TABLET (FP) GT SCH ×2 (10:58→21:14)
[2015-08-17] MEDS: LISINOPRIL 20 MG TABLET (FP) GT SCH (10:59)
[2015-08-17] MEDS: AMINO ACIDS/PROTEIN HYDROLYS SUGAR-FREE 30 ML PACKET GT SCH ×2 (10:59→21:14)
[2015-08-17] MEDS: PANTOPRAZOLE SOD 40 MG SUSPENSION PACKET GT SCH (11:00)
[2015-08-17] MEDS: COLLAGENASE CLOSTRIDIUM HIST. 30 GRAMS TUBE TP SCH (11:08)
--- NOTE | 2015-08-17 12:56 | PN ---
Progress Note, Physician History of Present Illness: pulmonary no change poorly responsive on vent support ac mode. - Current Medication List Current Medications: Active Medications Acetaminophen (Tylenol Oral Solution -) 650 mg GT Q6H PRN PRN Reason: FEVER Last Admin: 08/17/15 06:51 Dose: 650 mg Amino Acids (Prostat Sugar-Free Packet -) 30 ml GT BID [facility] Last Admin: 08/17/15 10:59 Dose: 30 ml Amlodipine Besylate (Norvasc -) 10 mg GT DAILY [facility] Last Admin: 08/17/15 10:57 Dose: 10 mg Chlorhexidine Gluconate (Peridex -) 15 ml MM BID [facility] Last Admin: 08/17/15 10:57 Dose: 15 ml Collagenase (Santyl -) 1 applic TP DAILY [facility] Last Admin: 08/17/15 11:08 Dose: 1 applic Ibuprofen (Motrin Oral Suspension -) 200 mg PO Q6H PRN PRN Reason: FEVER Last Admin: 08/15/15 18:03 Dose: 200 mg Insulin Aspart (Novolog Vial) 3 units SQ Q6HPO [facility] Last Admin: 08/17/15 06:47 Dose: 3 units Insulin Aspart (Novolog Vial) 0 units SQ Q6HPO [facility] PRN Reason: Protocol Last Admin: 08/17/15 06:48 Dose: 4 units Insulin Detemir (Levemir Vial -) 25 units SQ HS [facility] Last Admin: 08/16/15 23:46 Dose: 25 units Lisinopril (Prinivil -) 20 mg GT DAILY [facility] Last Admin: 08/17/15 10:59 Dose: 20 mg Metoprolol Tartrate (Lopressor Injection -) 5 mg IVPB Q6H PRN PRN Reason: HYPERTENSION Metoprolol Tartrate (Lopressor -) 100 mg GT BID [facility] Last Admin: 08/17/15 10:58 Dose: 100 mg Multivitamins (Thera-Plus -) 5 ml GT DAILY [facility] Last Admin: 08/17/15 10:57 Dose: 5 ml Mupirocin (Bactroban 2% Ointment -) 1 applic TP BID [facility] Last Admin: 08/17/15 11:07 Dose: 1 applic Ondansetron HCl (Zofran Injection -) 4 mg IVPB Q6H PRN PRN Reason: NAUSEA Pantoprazole Sodium (Protonix Packets For Oral Suspension -) 40 mg GT DAILY [facility] Last Admin: 08/17/15 11:00 Dose: 40 mg Vancomycin HCl (Vancomycin Oral Solution) 250 mg PO Q6HPO [facility] Last Admin: 08/17/15 11:00 Dose: 250 mg - Objective Vital Signs: Vital Signs Temperature 99.7 F H 08/17/15 11:15 Pulse Rate 108 H 08/17/15 11:15 Respiratory Rate 12 08/17/15 11:15 Blood Pressure 152/98 08/17/15 11:15 O2 Sat by Pulse Oximetry (%) 100 08/17/15 10:00 Constitutional: Yes: Thin, Other (poorly responsive) Eyes: Yes: WNL HENT: Yes: WNL Neck: Yes: Supple (trach) Cardiovascular: Yes: Regular Rate and Rhythm, S1, S2 Respiratory: Yes: Diminished Gastrointestinal: Yes: WNL Extremities: Yes: WNL Edema: No Labs: CBC, BMP 08/16/15 06:50 08/16/15 06:50 INR, PTT INR 1.30 (0.86-1.14) H 07/29/15 10:00 Problem List - Problems (1) Anoxic brain damage Code: G93.1 (2) Lower GI bleed Code: K92.2 (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 - enteral feeds - DVT/GI prophylaxis - Prognosis poor DR HENRY
--- NOTE | 2015-08-17 14:12 | PN ---
Progress Note (short form) - Note Progress Note: Pt seen and examined. unresponsive Current Medications Generic Name Dose Route Start Last Admin Trade Name Freq PRN Reason Stop Dose Admin Acetaminophen 650 mg 07/31/15 15:42 08/17/15 06:51 Tylenol Oral Solution - GT 650 mg Q6H PRN Administration FEVER Amino Acids 30 ml 08/11/15 22:00 08/17/15 10:59 Prostat Sugar-Free Packet - GT 30 ml BID KWAKU Administration Amlodipine Besylate 10 mg 08/01/15 10:00 08/17/15 10:57 Norvasc - GT 10 mg DAILY KWAKU Administration Chlorhexidine Gluconate 15 ml 07/28/15 22:00 08/17/15 10:57 Peridex - MM 15 ml BID KWAKU Administration Collagenase 1 applic 08/12/15 10:00 08/17/15 11:08 Santyl - TP 1 applic DAILY KWAKU Administration Ibuprofen 200 mg 08/13/15 14:55 08/15/15 18:03 Motrin Oral Suspension - PO 200 mg Q6H PRN Administration FEVER Insulin Aspart 3 units 08/16/15 12:00 08/17/15 13:00 Novolog Vial SQ 3 units Q6HPO KWAKU Administration Insulin Aspart 0 units 08/16/15 12:00 08/17/15 13:00 Novolog Vial SQ 2 units Q6HPO KWAKU Administration Protocol Insulin Detemir 25 units 08/16/15 22:00 08/16/15 23:46 Levemir Vial - SQ 25 units HS KWAKU Administration Lisinopril 20 mg 08/01/15 10:00 08/17/15 10:59 Prinivil - GT 20 mg DAILY KWAKU Administration Metoprolol Tartrate 5 mg 07/28/15 19:09 Lopressor Injection - IVPB Q6H PRN HYPERTENSION Metoprolol Tartrate 100 mg 07/31/15 22:00 08/17/15 10:58 Lopressor - GT 100 mg BID KWAKU Administration Multivitamins 5 ml 07/31/15 15:38 08/17/15 10:57 Thera-Plus - GT 5 ml DAILY KWAKU Administration Mupirocin 1 applic 08/11/15 22:00 08/17/15 11:07 Bactroban 2% Ointment - TP 1 applic BID KWAKU Administration Ondansetron HCl 4 mg 07/28/15 19:09 Zofran Injection - IVPB Q6H PRN NAUSEA Pantoprazole Sodium 40 mg 08/01/15 10:00 08/17/15 11:00 Protonix Packets For Oral Suspension - GT 40 mg DAILY KWAKU Administration Vancomycin HCl 250 mg 08/14/15 10:34 08/17/15 11:00 Vancomycin Oral Solution PO 250 mg Q6HPO KWAKU Administration Last Vital Signs Temp Pulse Resp BP Pulse Ox 99.7 F H 108 H 12 152/98 100 08/17/15 11:15 08/17/15 11:15 08/17/15 11:15 08/17/15 11:15 08/17/15 10:00 Intake & Output 08/14/15 08/15/15 08/16/15 08/17/15 23:59 23:59 23:59 23:59 Intake Total 1670 2300 2350 950 Output Total 650 Balance 1670 2300 1700 950 General- resting comfortable, pt does not withdraw to pain, +gag reflex, spontaneous eye openning HEENT- PERRL, no secretions from trach CV- S1S2 RRR no murmur/rub/gallops Lungs- coarse breath sounds B/L no wheezing/rhonchi/rales Abdomen- soft NT/ND +LUQ PEG no guarding/rebound +BS Extremities- no edema Lines: trach/PEG/Rectal Microbiology 08/14/15 10:50 Blood Culture - Preliminary Blood - Peripheral Venous NO GROWTH OBTAINED AFTER 72 HOURS, INCUBATION TO CONTINUE FOR 2 DAYS. 08/14/15 10:50 Blood Culture - Preliminary Blood - Peripheral Venous NO GROWTH OBTAINED AFTER 72 HOURS, INCUBATION TO CONTINUE FOR 2 DAYS. A/P 75 yo M with PMH HTN, DM, inguinal hernia a/w BRBPR and melena with multiple syncopal episodes. 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 Neuro- Anoxic brain injury s/p brainstem CVA- +brainstem functioning (pupils reactive, breathing over the vent). Not requiring medications for agitation. unresponsive. 2. CV- HTN- controlled. will cont to monitor and titrate medications accordingly. Cont lisinopril/metoprolol/norvasc 3. Respiratory- s/p trach. saturating well. Vent dependent. no weaning potential at this time 4. Abdomen- s/p R hemicolectomy. s/p PEG tolerating tube feeds. Glucerna @ 50cc/ H. 5. Hypernatremia- elevated. Cont water flushes at 300cc Q6H, monitor 6. ID- C. diff -Tmax 101.5. stable leukocytosis. no source of infection. possible central fevers? Cdiff negative. Cont Vanco po 7. Endo- DM- improved. Cont lantus 25units and novolog 3units Q6H. cont FS, ISS 8. DVT/GI PPx- on scd, protonix 9. Poor prognosis, DNR. Pt awaiting placement in vent capable facility
--- NOTE | 2015-08-17 15:04 | PN ---
Progress Note, Physician History of Present Illness: Non verbal Remains febrile with mildly elevated WBC Cultures negative - Current Medication List Current Medications: Active Medications Acetaminophen (Tylenol Oral Solution -) 650 mg GT Q6H PRN PRN Reason: FEVER Last Admin: 08/17/15 06:51 Dose: 650 mg Amino Acids (Prostat Sugar-Free Packet -) 30 ml GT BID [facility] Last Admin: 08/17/15 10:59 Dose: 30 ml Amlodipine Besylate (Norvasc -) 10 mg GT DAILY [facility] Last Admin: 08/17/15 10:57 Dose: 10 mg Chlorhexidine Gluconate (Peridex -) 15 ml MM BID [facility] Last Admin: 08/17/15 10:57 Dose: 15 ml Collagenase (Santyl -) 1 applic TP DAILY [facility] Last Admin: 08/17/15 11:08 Dose: 1 applic Ibuprofen (Motrin Oral Suspension -) 200 mg PO Q6H PRN PRN Reason: FEVER Last Admin: 08/15/15 18:03 Dose: 200 mg Insulin Aspart (Novolog Vial) 3 units SQ Q6HPO [facility] Last Admin: 08/17/15 13:00 Dose: 3 units Insulin Aspart (Novolog Vial) 0 units SQ Q6HPO KWAKU PRN Reason: Protocol Last Admin: 08/17/15 13:00 Dose: 2 units Insulin Detemir (Levemir Vial -) 25 units SQ HS [facility] Last Admin: 08/16/15 23:46 Dose: 25 units Lisinopril (Prinivil -) 20 mg GT DAILY [facility] Last Admin: 08/17/15 10:59 Dose: 20 mg Metoprolol Tartrate (Lopressor Injection -) 5 mg IVPB Q6H PRN PRN Reason: HYPERTENSION Metoprolol Tartrate (Lopressor -) 100 mg GT BID [facility] Last Admin: 08/17/15 10:58 Dose: 100 mg Multivitamins (Thera-Plus -) 5 ml GT DAILY [facility] Last Admin: 08/17/15 10:57 Dose: 5 ml Mupirocin (Bactroban 2% Ointment -) 1 applic TP BID [facility] Last Admin: 08/17/15 11:07 Dose: 1 applic Ondansetron HCl (Zofran Injection -) 4 mg IVPB Q6H PRN PRN Reason: NAUSEA Pantoprazole Sodium (Protonix Packets For Oral Suspension -) 40 mg GT DAILY [facility] Last Admin: 08/17/15 11:00 Dose: 40 mg Vancomycin HCl (Vancomycin Oral Solution) 250 mg PO Q6HPO [facility] Last Admin: 08/17/15 11:00 Dose: 250 mg - Objective Vital Signs: Vital Signs Temperature 99.7 F H 08/17/15 11:15 Pulse Rate 108 H 08/17/15 11:15 Respiratory Rate 15 08/17/15 15:00 Blood Pressure 152/98 08/17/15 11:15 O2 Sat by Pulse Oximetry (%) 100 08/17/15 10:00 Constitutional: Yes: No Distress, Cachectic Cardiovascular: Yes: Regular Rate and Rhythm, S1, S2 Respiratory: Yes: Mechanically Ventilated Gastrointestinal: Yes: Normal Bowel Sounds, Soft. No: Tenderness Edema: LLE: 1+, RLE: 1+ Labs: CBC, BMP 08/16/15 06:50 08/16/15 06:50 INR, PTT INR 1.30 (0.86-1.14) H 07/29/15 10:00 Assessment/Plan recurrent fever ? source ? non-infectious ( atelectasis on CXR) Respiratory failure s/p Lower GI bleed + C difficile Leukocytosis Repeat blood c/s- no growth Continue vancomycin via GT for C difficile
[2015-08-17] MEDS: INSULIN DETEMIR 100 UNITS/ML MDV SQ SCH (22:14)
[2015-08-18] MEDS: VANCOMYCIN 250 MG/5 ML ORAL SOLUTION PO SCH ×4 (01:00→18:42)
[2015-08-18] MEDS: INSULIN (NOVOLOG) ASPART 100 UNITS/ML 10ML VIAL SQ SCH ×8 (01:00→18:41)
[2015-08-18] MEDS: ACETAMINOPHEN 650 MG/20.3 ML ORAL SOLUTION (CUPS) GT PRN ×2 (06:13→15:26)
[2015-08-18 08:05] LABS: BASOPHIL 0.5 % (0-2.0); EOSINOPHIL 3.2 % (0-4.5); MCH 29.2 pg (25.7-33.7); MEAN CELL VOLUME 91.1 fl (80-96); MEAN PLT VOLUME 9.3 fl (7.5-11.1); NEUTROPHILS 79.3 % (42.8-82.8); PLATELET COUNT 169 K/MM3 (134-434); RDW 15.2 % (11.9-15.9); WHITE BLOOD COUNT 13.6 K/mm3 (4.0-10.0)
--- NOTE | 2015-08-18 09:28 | PN ---
Progress Note (short form) - Note Progress Note: Pt seen and examined. unresponsive Current Medications Generic Name Dose Route Start Last Admin Trade Name Freq PRN Reason Stop Dose Admin Acetaminophen 650 mg 07/31/15 15:42 08/18/15 06:13 Tylenol Oral Solution - GT 650 mg Q6H PRN Administration FEVER Amino Acids 30 ml 08/11/15 22:00 08/17/15 21:14 Prostat Sugar-Free Packet - GT 30 ml BID KAWKU Administration Amlodipine Besylate 10 mg 08/01/15 10:00 08/17/15 10:57 Norvasc - GT 10 mg DAILY KWAKU Administration Chlorhexidine Gluconate 15 ml 07/28/15 22:00 08/17/15 21:14 Peridex - MM 15 ml BID KWAKU Administration Collagenase 1 applic 08/12/15 10:00 08/17/15 11:08 Santyl - TP 1 applic DAILY KWAKU Administration Ibuprofen 200 mg 08/13/15 14:55 08/15/15 18:03 Motrin Oral Suspension - PO 200 mg Q6H PRN Administration FEVER Insulin Aspart 3 units 08/16/15 12:00 08/18/15 06:10 Novolog Vial SQ 3 units Q6HPO KWAKU Administration Insulin Aspart 0 units 08/16/15 12:00 08/18/15 06:11 Novolog Vial SQ 2 units Q6HPO KWAKU Administration Protocol Insulin Detemir 25 units 08/16/15 22:00 08/17/15 22:14 Levemir Vial - SQ 25 units HS KWAKU Administration Lisinopril 20 mg 08/01/15 10:00 08/17/15 10:59 Prinivil - GT 20 mg DAILY KWAKU Administration Metoprolol Tartrate 5 mg 07/28/15 19:09 Lopressor Injection - IVPB Q6H PRN HYPERTENSION Metoprolol Tartrate 100 mg 07/31/15 22:00 08/17/15 21:14 Lopressor - GT 100 mg BID KWAKU Administration Multivitamins 5 ml 07/31/15 15:38 08/17/15 10:57 Thera-Plus - GT 5 ml DAILY KWAKU Administration Mupirocin 1 applic 08/11/15 22:00 08/17/15 22:00 Bactroban 2% Ointment - TP 1 applic BID KWAKU Administration Ondansetron HCl 4 mg 07/28/15 19:09 Zofran Injection - IVPB Q6H PRN NAUSEA Pantoprazole Sodium 40 mg 08/01/15 10:00 08/17/15 11:00 Protonix Packets For Oral Suspension - GT 40 mg DAILY KWAKU Administration Vancomycin HCl 250 mg 08/14/15 10:34 08/18/15 06:13 Vancomycin Oral Solution PO 250 mg Q6HPO KWAKU Administration Last Vital Signs Temp Pulse Resp BP Pulse Ox 100.1 F H 114 H 19 152/90 100 08/18/15 06:00 08/18/15 06:00 08/18/15 06:05 08/18/15 06:00 08/17/15 22:00 Intake & Output 08/15/15 08/16/15 08/17/15 08/18/15 23:59 23:59 23:59 23:59 Intake Total 2300 2350 2350 Output Total 650 Balance 2300 1700 2350 General- resting comfortable, pt does not withdraw to pain, +gag reflex, spontaneous eye openning HEENT- PERRL, no secretions from trach CV- S1S2 RRR no murmur/rub/gallops Lungs- coarse breath sounds B/L no wheezing/rhonchi/rales Abdomen- soft NT/ND +LUQ PEG no guarding/rebound +BS Extremities- no edema Lines: trach/PEG/Rectal CBCD WBC 13.6 K/mm3 (4.0-10.0) H 08/18/15 06:00 RBC 3.23 M/mm3 (4.00-5.60) L 08/18/15 06:00 Hgb 9.4 GM/dL (11.7-16.9) L 08/18/15 06:00 Hct 29.4 % (35.4-49) L 08/18/15 06:00 MCV 91.1 fl (80-96) 08/18/15 06:00 MCHC 32.0 g/dl (32.0-35.9) 08/18/15 06:00 RDW 15.2 % (11.9-15.9) 08/18/15 06:00 Plt Count 169 K/MM3 (134-434) 08/18/15 06:00 MPV 9.3 fl (7.5-11.1) 08/18/15 06:00 CMP Sodium 155 mmol/L (136-145) H 08/18/15 06:00 Potassium 3.9 mmol/L (3.5-5.1) 08/16/15 06:50 Chloride 114 mmol/L (98-107) H 08/16/15 06:50 Carbon Dioxide 30 mmol/L (21-32) 08/16/15 06:50 Anion Gap 10 (8-16) 08/16/15 06:50 BUN 29 mg/dL (7-18) H 08/16/15 06:50 Creatinine 0.7 mg/dL (0.6-1.3) 08/16/15 06:50 Creat Clearance w eGFR > 60 (>60) 08/08/15 08:35 Calcium 9.5 mg/dL (8.5-10.1) 08/16/15 06:50 Total Bilirubin 0.2 mg/dL (0.2-1.0) D 08/08/15 08:35 AST 26 U/L (15-37) 08/08/15 08:35 ALT 33 U/L (12-78) 08/08/15 08:35 Alkaline Phosphatase 106 U/L (45-117) 08/08/15 08:35 Total Protein 6.1 g/dl (6.4-8.2) L 08/08/15 08:35 Albumin 2.4 g/dl (3.4-5.0) L 08/08/15 08:35 Microbiology 08/14/15 10:50 Blood Culture - Preliminary Blood - Peripheral Venous NO GROWTH OBTAINED AFTER 72 HOURS, INCUBATION TO CONTINUE FOR 2 DAYS. 08/14/15 10:50 Blood Culture - Preliminary Blood - Peripheral Venous NO GROWTH OBTAINED AFTER 72 HOURS, INCUBATION TO CONTINUE FOR 2 DAYS. A/P 75 yo M with PMH HTN, DM, inguinal hernia a/w BRBPR and melena with multiple syncopal episodes. 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 Neuro- Anoxic brain injury s/p brainstem CVA- +brainstem functioning (pupils reactive, breathing over the vent). Not requiring medications for agitation. unresponsive. 2. CV- HTN- controlled. will cont to monitor and titrate medications accordingly. Cont lisinopril/metoprolol/norvasc 3. Respiratory- s/p trach. saturating well. Vent dependent. no weaning potential at this time 4. Abdomen- s/p R hemicolectomy. s/p PEG tolerating tube feeds. Glucerna @ 50cc/ H. 5. Hypernatremia- elevated. Water deficit 4.3L. increase water flushes at 350cc Q6H, monitor 6. ID- C. diff -Tmax 100.8. stable leukocytosis. no source of infection. possible central fevers? Cdiff negative. Cont Vanco po 7. Endo- DM- improved. Cont lantus 25units and novolog 3units Q6H. cont FS, ISS 8. DVT/GI PPx- on scd, protonix 9. Poor prognosis, DNR. Pt awaiting placement in vent capable facility
[2015-08-18] MEDS: PANTOPRAZOLE SOD 40 MG SUSPENSION PACKET GT SCH (10:32)
[2015-08-18] MEDS: amLODIPine BESYLATE 10 MG TABLET (FP) GT SCH (10:37)
[2015-08-18] MEDS: AMINO ACIDS/PROTEIN HYDROLYS SUGAR-FREE 30 ML PACKET GT SCH ×2 (10:37→22:52)
[2015-08-18] MEDS: LISINOPRIL 20 MG TABLET (FP) GT SCH (10:37)
[2015-08-18] MEDS: MUPIROCIN 2% TOPICAL OINTMENT 22 GM TUBE TP SCH ×2 (10:37→22:51)
[2015-08-18] MEDS: METOPROLOL TARTRATE 50 MG TABLET (FP) GT SCH ×2 (10:37→22:52)
[2015-08-18] MEDS: CHLORHEXIDINE GLUCONATE 0.12% 15ML CUP MM SCH ×2 (10:37→22:52)
[2015-08-18] MEDS: COLLAGENASE CLOSTRIDIUM HIST. 30 GRAMS TUBE TP SCH (10:38)
--- NOTE | 2015-08-18 11:32 | PN ---
Progress Note (short form) - Note Progress Note: Wound Assessment [facility] Reason for visit: Wound Assessment Request for consultation: by [facility] Interdisciplinary Wound Care Team Initial Encounter: No Previous Encounter: Yes - History of Present Illness Past Medical History Cardio/Vascular HTN Endocrine Diabetes Mellitus Past Surgical History Past Surgical History Hernia Repair Social History Smoking history Never smoked Have you smoked in the past 12 No months Hx Alcohol Use No Current Medications Generic Name Dose Route Start Last Admin Trade Name Freq PRN Reason Stop Dose Admin Acetaminophen 650 mg 07/31/15 15:42 08/04/15 02:15 Tylenol Oral Solution - GT 650 mg Q6H PRN Administration FEVER Amino Acids 30 ml 08/01/15 10:00 08/04/15 09:53 Prostat Sugar-Free Packet - GT 30 ml DAILY KWAKU Administration Amlodipine Besylate 10 mg 08/01/15 10:00 08/04/15 09:57 Norvasc - GT 10 mg DAILY KWAKU Administration Chlorhexidine Gluconate 15 ml 07/28/15 22:00 08/04/15 09:53 Peridex - MM 15 ml BID KWAKU Administration Metronidazole 100 mls @ 100 mls/hr 08/02/15 07:45 08/04/15 09:47 Flagyl 500mg Premixed Ivpb - IVPB 100 mls/hr Q8H-IV KWAKU Administration Ceftriaxone Sodium 1 gm/ 50 mls @ 100 mls/hr 08/02/15 16:30 08/04/15 09:47 Dextrose IVPB 100 mls/hr DAILY KWAKU Administration Insulin Aspart 0 units 07/29/15 00:00 08/04/15 12:13 Novolog Flexpen Sliding Scale - SQ 4 units Q6HPO KWAKU Administration Protocol Insulin Aspart 3 units 08/04/15 11:26 08/04/15 12:24 Novolog Flexpen - SQ Not Given Q6HPO KWAKU Insulin Detemir 25 units 08/04/15 11:26 Levemir Flexpen - SQ HS [facility] Lisinopril 20 mg 08/01/15 10:00 08/04/15 09:56 Prinivil - GT 20 mg DAILY KWAKU Administration Metoprolol Tartrate 5 mg 07/28/15 19:09 Lopressor Injection - IVPB Q6H PRN HYPERTENSION Metoprolol Tartrate 100 mg 07/31/15 22:00 08/04/15 09:57 Lopressor - GT 100 mg BID KWAKU Administration Multivitamins 5 ml 07/31/15 15:38 08/04/15 09:53 Thera-Plus - GT 5 ml DAILY KWAKU Administration Ondansetron HCl 4 mg 07/28/15 19:09 Zofran Injection - IVPB Q6H PRN NAUSEA Pantoprazole Sodium 40 mg 08/01/15 10:00 08/04/15 09:57 Protonix Packets For Oral Suspension - GT 40 mg DAILY KWAKU Administration Vancomycin HCl 125 mg 07/31/15 18:00 08/04/15 12:14 Vancomycin Oral Solution GT 125 mg Q6HPO KWAKU Administration Allergies Allergy/AdvReac Type Severity Reaction Status Date / Time No Known Allergies Allergy Verified 06/26/15 21:31 Physical Exam - Objective Last Vital Signs Temp Pulse Resp BP Pulse Ox 100.1 F H 97 H 20 145/84 98 08/04/15 06:00 08/04/15 10:07 08/04/15 10:07 08/04/15 06:00 08/04/15 10:07 Laboratory Last Values WBC 13.3 K/mm3 (4.0-10.0) H 08/04/15 06:00 Corrected WBC (auto) Cancelled 06/26/15 21:50 RBC 2.95 M/mm3 (4.00-5.60) L 08/04/15 06:00 Hgb 8.5 GM/dL (11.7-16.9) L 08/04/15 06:00 Hct 26.6 % (35.4-49) L 08/04/15 06:00 MCV 90.0 fl (80-96) 08/04/15 06:00 MCHC 32.2 g/dl (32.0-35.9) 08/04/15 06:00 RDW 14.3 % (11.9-15.9) 08/04/15 06:00 Plt Count 182 K/MM3 (134-434) 08/04/15 06:00 MPV 9.5 fl (7.5-11.1) 08/04/15 06:00 Add Manual Diff Cancelled 06/26/15 21:50 Neutrophils % 79.5 % (42.8-82.8) 08/04/15 06:00 Lymphocytes % 11.7 % (8-40) 08/04/15 06:00 Monocytes % 4.3 % (3.8-10.2) 08/04/15 06:00 Eosinophils % 4.0 % (0-4.5) 08/04/15 06:00 Basophils % 0.5 % (0-2.0) 08/04/15 06:00 Band Neutrophils 6.0 % (0-10) 06/28/15 09:35 Differential Comment Manual diff done 06/28/15 09:35 Smudge Cells Cancelled 06/26/15 21:50 Platelet Estimate Slt decreased (NORMAL) 06/28/15 09:35 Platelet Comment No clumping noted 06/28/15 09:35 Platelet Comment No clotting detected 06/28/15 09:35 Normal RBC Morphology Cancelled 06/26/15 21:50 RBC Morphology Cancelled 06/26/15 21:50 INR 1.30 (0.86-1.14) H 07/29/15 10:00 PTT (Actin FS) 28.6 SECONDS (23.5-38.3) 07/23/15 05:20 Anticoagulation Therapy Y 07/11/15 07:07 Puncture Site Right radial 07/11/15 07:07 ABG pH 7.44 (7.35-7.45) 07/11/15 07:07 ABG pCO2 at Pt Temp 42.1 mmHg (35-45) 07/11/15 07:07 ABG pO2 at Pt Temp 113.0 mmHg (70-100) H D 07/11/15 07:07 ABG HCO3 27.8 meq/L (22-26) H 07/11/15 07:07 ABG O2 Sat (Measured) 99.1 % (90-98.9) H 07/11/15 07:07 ABG O2 Content 13.3 % vol (15-22) L 07/11/15 07:07 ABG Base Excess 3.8 meq/l (-2-2) H 07/11/15 07:07 Izaiah Test Positive 07/11/15 07:07 O2 Delivery Device Ventilator 07/11/15 07:07 Oxygen Flow Rate 30% 07/11/15 07:07 Vent Mode A/c 07/11/15 07:07 Vent Rate 10 07/11/15 07:07 Mechanical Rate Yes 07/11/15 07:07 PEEP 5.0 cmH2O 07/11/15 07:07 Pressure Support Vent 500 07/11/15 07:07 Sodium 151 mmol/L (136-145) H 08/04/15 06:00 Potassium 3.9 mmol/L (3.5-5.1) 07/29/15 07:00 Chloride 113 mmol/L (98-107) H 07/29/15 07:00 Carbon Dioxide 33 mmol/L (21-32) H 07/29/15 07:00 Anion Gap 4 (8-16) L 07/29/15 07:00 BUN 26 mg/dL (7-18) H 07/29/15 07:00 Creatinine 0.9 mg/dL (0.6-1.3) 07/29/15 07:00 Creat Clearance w eGFR > 60 (>60) 07/29/15 07:00 POC Glucometer 212 UNITS (()) 08/04/15 12:10 Random Glucose 261 mg/dL (74-106) H D 07/29/15 07:00 Lactic Acid 1.606 mmol/L (0.4-2.0) 06/27/15 10:10 Calcium 9.5 mg/dL (8.5-10.1) 07/29/15 07:00 Phosphorus 3.5 mg/dL (2.5-4.9) 07/29/15 07:00 Magnesium 2.2 mg/dL (1.8-2.4) 07/29/15 07:00 Total Bilirubin 0.3 mg/dL (0.2-1.0) 07/29/15 07:00 AST 25 U/L (15-37) 07/29/15 07:00 ALT 36 U/L (12-78) D 07/29/15 07:00 Alkaline Phosphatase 104 U/L (45-117) 07/29/15 07:00 Creatine Kinase 62 IU/L (38-174) 06/28/15 09:35 Creatine Kinase Index 0.7 % (0.0-5.0) 06/26/15 21:50 CK-MB (CK-2) 1.077 ng/ml (0.3-4.0) 06/26/15 21:50 CK-MB (CK-2) Rel Index Cancelled 06/26/15 21:50 Troponin I 0.07 ng/ml (0.03-0.5) D 07/09/15 05:00 Total Protein 7.0 g/dl (6.4-8.2) 07/29/15 07:00 Albumin 2.6 g/dl (3.4-5.0) L 07/29/15 07:00 Lipase 140 U/L (73-293) 06/26/15 21:50 Prolactin 19.8 ng/ml (4.0-15.2) H 07/02/15 05:20 Urine Color Yellow 08/02/15 17:30 Urine Appearance Cloudy 08/02/15 17:30 Urine pH 5.0 (5.0-8.0) 08/02/15 17:30 Ur Specific [place] 1.029 (1.001-1.035) 08/02/15 17:30 Urine Protein Negative (NEGATIVE) 08/02/15 17:30 Urine Glucose (UA) 1+ (NEGATIVE) H 08/02/15 17:30 Urine Ketones Negative (NEGATIVE) 08/02/15 17:30 Urine Blood Negative (NEGATIVE) 08/02/15 17:30 Urine Nitrite Negative (NEGATIVE) 08/02/15 17:30 Urine Bilirubin Negative (NEGATIVE) 08/02/15 17:30 Urine Urobilinogen Negative E.U./dl (0.2-1.0) 08/02/15 17:30 Ur Leukocyte Esterase Negative (NEGATIVE) 08/02/15 17:30 Urine RBC 180 /hpf (0-3) 07/27/15 15:55 Urine WBC 5 /hpf (3-5) 07/27/15 15:55 Ur Epithelial Cells Rare /hpf (FEW) 07/27/15 15:55 Urine Mucus Rare 07/27/15 15:55 Stool Occult Blood Negative (NEGATIVE) 07/02/15 12:00 Hepatitis C Ab (EIA) <0.1 s/co ratio (0.0-0.9) 07/03/15 05: Blood Type O POSITIVE 07/22/15 11:54 Antibody Screen Negative 07/22/15 11:54 Crossmatch See Detail 06/30/15 15:15 Crossmatch IS Only See Detail 06/26/15 21:50 Spec Expiration Date 06/26/15 21:50 Microbiology 08/02/15 19:00 Urine - Urine Schwartz Urine Culture - Final NO GROWTH OBTAINED 07/30/15 18:30 Blood - Peripheral Venous Blood Culture - Preliminary NO GROWTH OBTAINED AFTER 96 HOURS, INCUBATION TO CONTINUE FOR 1 DAYS. 07/30/15 18:30 Blood - Peripheral Venous Blood Culture - Preliminary NO GROWTH OBTAINED AFTER 96 HOURS, INCUBATION TO CONTINUE FOR 1 DAYS. 08/02/15 17:20 Blood - Peripheral Venous Blood Culture - Preliminary NO GROWTH OBTAINED AFTER 24 HOURS, INCUBATION TO CONTINUE FOR 4 DAYS. 08/02/15 17:20 Blood - Peripheral Venous Blood Culture - Preliminary NO GROWTH OBTAINED AFTER 24 HOURS, INCUBATION TO CONTINUE FOR 4 DAYS. 08/02/15 22:55 Stool Clostridium difficile Antigen (MACHO) - Final 08/02/15 22:55 Stool Clostridium difficile Toxin Assay - Final 07/27/15 19:00 Blood - Peripheral Venous Blood Culture - Final NO GROWTH AFTER 5 DAYS INCUBATION 07/27/15 19:00 Blood - Peripheral Venous Blood Culture - Final NO GROWTH AFTER 5 DAYS INCUBATION 07/27/15 19:30 Stool Clostridium difficile (PCR) - Final 07/27/15 15:55 Urine - Urine Schwartz Urine Culture - Final NO GROWTH OBTAINED 07/24/15 21:50 Sputum - Endotrachea Suction/Ventilator Gram Stain - Final 07/24/15 21:50 Sputum - Endotrachea Suction/Ventilator Sputum Culture - Preliminary NORMAL RESPIRATORY ARMAND 07/15/15 11:30 Blood - Peripheral Venous Blood Culture - Final NO GROWTH AFTER 5 DAYS INCUBATION 07/15/15 11:30 Blood - Peripheral Venous Blood Culture - Final NO GROWTH AFTER 5 DAYS INCUBATION 07/10/15 10:30 Stool Stool Culture - Final NO SALMONELLA, SHIGELLA, YERSINIA, CAMPYLOBACTER OR E COLI 0157 ISOLATED 07/10/15 10:35 Stool Clostridium difficile Antigen (MACHO) - Final 07/10/15 10:35 Stool Clostridium difficile Toxin Assay - Final 07/10/15 10:30 Stool Gram Stain - Final 07/02/15 18:00 Blood - Peripheral Venous Blood Culture - Final NO GROWTH AFTER 5 DAYS INCUBATION 07/02/15 18:00 Blood - Peripheral Venous Blood Culture - Final NO GROWTH AFTER 5 DAYS INCUBATION 06/28/15 09:32 Blood - Peripheral Venous Blood Culture - Final NO GROWTH AFTER 5 DAYS INCUBATION 06/28/15 09:32 Blood - Peripheral Venous Blood Culture - Final NO GROWTH AFTER 5 DAYS INCUBATION 06/28/15 17:30 Sputum - Endotrachea Suction/Ventilator Gram Stain - Final 06/28/15 17:30 Sputum - Endotrachea Suction/Ventilator Sputum Culture - Final NORMAL RESPIRATORY ARMAND 06/27/15 20:30 Urine - Urine Schwartz Urine Culture - Final NO GROWTH OBTAINED 06/28/15 10:00 Urine For Antigen Detection Legionella Antigen - Final 06/28/15 10:00 Urine For Antigen Detection Streptococcus pneumoniae Antigen (M - Final Wounds - Wound Wound #1 Type of wound: Yes: Pressure ulcer Stage: III Location/laterality: sacrum across the midline Wound size: 5cmL x 7cm W x 0.5cmD Thickness: Partial Undermining: No Tunneling: No Drainage/exudate: yes, sanguinous Wound bed tissue: Erythematous, oozing blood Wound edges color: Erythematous Wound edges raised: yes Wound edges rolled: yes, partially Wound edges contracted: No Pain: No Surrounding tissue to 4cm: Yes: erythematous Wound #2 Type of wound: Yes: Pressure ulcer Stage: II Location/laterality: left ear Wound size: 2.0cmL x .5cmW x 0.1cmD Thickness: Partial Undermining: No Tunneling: No Drainage/exudate: Yes, serosanguinous Wound bed tissue: Yes: Erythematous Wound edges color: Normally pigmented Wound edges raised: No Wound edges rolled: No Wound edges contracted: No Pain: No Surrounding tissue to 4cm: Yes: Healthy Wound #3 Pressure ulcer, healed Stage II Assessment/Plan Wound #1 Diagnosis: Pressure ulcer Wound specific intervention: Collagenase to slough area Allevyn dressing Wound #2 Diagnosis: Pressure ulcer Wound specific intervention: apply silvadene to affected area daily Wound 3 Diagnosis: pressure ulcer Wound specific intervention: none Impediments to healing: Limited mobility, Unable to self-position in bed, Hypoalbunemia, Nutritional deficiencies, Incontinence of urine, Incontinence of bowel Nutrition/Dietary supplements/vitamins: change to Jevity 1.5 at goal of 50, continue Prostat BID No recommendations Support Surface: Accucair Overlay HOB elevation: 30 degrees Off-loading: Turning/repositioning q2h, Elevate heels off bed with pillows Incontinence management: Avoid diapers; if must be used, do not secure around patient
[2015-08-18] MEDS: SILVER SULFADIAZINE 1% TOP CREAM 50 GM JAR TP SCH (12:55)
[2015-08-18] MEDS: MULTIVITAMINS THERAPEUTIC GT SCH (15:25)
[2015-08-18] MEDS: INSULIN DETEMIR 100 UNITS/ML MDV SQ SCH (22:51)
[2015-08-19] MEDS: VANCOMYCIN 250 MG/5 ML ORAL SOLUTION PO SCH ×4 (00:21→17:26)
[2015-08-19] MEDS: INSULIN (NOVOLOG) ASPART 100 UNITS/ML 10ML VIAL SQ SCH ×8 (00:21→17:26)
[2015-08-19 07:15] LABS: BASOPHIL 0.5 % (0-2.0); EOSINOPHIL 3.2 % (0-4.5); MCH 28.6 pg (25.7-33.7); MCHC 31.5 g/dl (32.0-35.9); MEAN CELL VOLUME 90.8 fl (80-96); MEAN PLT VOLUME 9.6 fl (7.5-11.1); NEUTROPHILS 79.7 % (42.8-82.8); PLATELET COUNT 152 K/MM3 (134-434); RDW 15.4 % (11.9-15.9); WHITE BLOOD COUNT 13.4 K/mm3 (4.0-10.0)
[2015-08-19] MEDS: METOPROLOL TARTRATE 50 MG TABLET (FP) GT SCH ×2 (10:22→22:47)
[2015-08-19] MEDS: amLODIPine BESYLATE 10 MG TABLET (FP) GT SCH (10:23)
[2015-08-19] MEDS: CHLORHEXIDINE GLUCONATE 0.12% 15ML CUP MM SCH ×2 (10:23→22:47)
[2015-08-19] MEDS: LISINOPRIL 20 MG TABLET (FP) GT SCH (10:24)
[2015-08-19] MEDS: AMINO ACIDS/PROTEIN HYDROLYS SUGAR-FREE 30 ML PACKET GT SCH ×2 (10:24→22:47)
[2015-08-19] MEDS: PANTOPRAZOLE SOD 40 MG SUSPENSION PACKET GT SCH (10:24)
[2015-08-19] MEDS: MULTIVITAMINS THERAPEUTIC GT SCH (10:25)
[2015-08-19] MEDS: COLLAGENASE CLOSTRIDIUM HIST. 30 GRAMS TUBE TP SCH (10:30)
--- NOTE | 2015-08-19 13:34 | PN ---
Progress Note (short form) - Note Progress Note: Pt seen and examined. unresponsive Current Medications Generic Name Dose Route Start Last Admin Trade Name Freq PRN Reason Stop Dose Admin Acetaminophen 650 mg 07/31/15 15:42 08/18/15 15:26 Tylenol Oral Solution - GT 650 mg Q6H PRN Administration FEVER Amino Acids 30 ml 08/11/15 22:00 08/19/15 10:24 Prostat Sugar-Free Packet - GT 30 ml BID KWAKU Administration Amlodipine Besylate 10 mg 08/01/15 10:00 08/19/15 10:23 Norvasc - GT 10 mg DAILY KWAKU Administration Chlorhexidine Gluconate 15 ml 07/28/15 22:00 08/19/15 10:23 Peridex - MM 15 ml BID KWAKU Administration Collagenase 1 applic 08/12/15 10:00 08/19/15 10:30 Santyl - TP 1 applic DAILY KWAKU Administration Ibuprofen 200 mg 08/13/15 14:55 08/15/15 18:03 Motrin Oral Suspension - PO 200 mg Q6H PRN Administration FEVER Insulin Aspart 3 units 08/16/15 12:00 08/19/15 12:07 Novolog Vial SQ 3 units Q6HPO KWAKU Administration Insulin Aspart 0 units 08/16/15 12:00 08/19/15 12:04 Novolog Vial SQ Not Given Q6HPO KWAKU Protocol Insulin Detemir 25 units 08/16/15 22:00 08/18/15 22:51 Levemir Vial - SQ 25 units HS KWAKU Administration Lisinopril 20 mg 08/01/15 10:00 08/19/15 10:24 Prinivil - GT 20 mg DAILY KWAKU Administration Metoprolol Tartrate 5 mg 07/28/15 19:09 Lopressor Injection - IVPB Q6H PRN HYPERTENSION Metoprolol Tartrate 100 mg 07/31/15 22:00 08/19/15 10:22 Lopressor - GT 100 mg BID KWAKU Administration Multivitamins 5 ml 07/31/15 15:38 08/19/15 10:25 Thera-Plus - GT 5 ml DAILY KWAKU Administration Mupirocin 1 applic 08/11/15 22:00 08/18/15 22:51 Bactroban 2% Ointment - TP 1 applic BID KWAKU Administration Ondansetron HCl 4 mg 07/28/15 19:09 Zofran Injection - IVPB Q6H PRN NAUSEA Pantoprazole Sodium 40 mg 08/01/15 10:00 08/19/15 10:24 Protonix Packets For Oral Suspension - GT 40 mg DAILY KWAKU Administration Silver Sulfadiazine 1 applic 08/18/15 11:45 08/18/15 12:55 Silvadene - TP 1 applic DAILY KWAKU Administration Vancomycin HCl 250 mg 08/14/15 10:34 08/19/15 06:25 Vancomycin Oral Solution PO 250 mg Q6HPO KWAKU Administration Last Vital Signs Temp Pulse Resp BP Pulse Ox 97.9 F 89 17 160/89 100 08/19/15 06:00 08/19/15 06:00 08/19/15 10:05 08/19/15 06:00 08/18/15 22:00 General- resting comfortable, pt does not withdraw to pain, +gag reflex, spontaneous eye openning HEENT- PERRL, no secretions from trach CV- S1S2 RRR no murmur/rub/gallops Lungs- coarse breath sounds B/L no wheezing/rhonchi/rales Abdomen- soft NT/ND +LUQ PEG no guarding/rebound +BS Extremities- no edema Lines: trach/PEG/Rectal CBCD WBC 13.4 K/mm3 (4.0-10.0) H 08/19/15 06:25 RBC 3.36 M/mm3 (4.00-5.60) L 08/19/15 06:25 Hgb 9.6 GM/dL (11.7-16.9) L 08/19/15 06:25 Hct 30.5 % (35.4-49) L 08/19/15 06:25 MCV 90.8 fl (80-96) 08/19/15 06:25 MCHC 31.5 g/dl (32.0-35.9) L 08/19/15 06:25 RDW 15.4 % (11.9-15.9) 08/19/15 06:25 Plt Count 152 K/MM3 (134-434) 08/19/15 06:25 MPV 9.6 fl (7.5-11.1) 08/19/15 06:25 CMP Sodium 155 mmol/L (136-145) H 08/19/15 06:25 Potassium 3.9 mmol/L (3.5-5.1) 08/16/15 06:50 Chloride 114 mmol/L (98-107) H 08/16/15 06:50 Carbon Dioxide 30 mmol/L (21-32) 08/16/15 06:50 Anion Gap 10 (8-16) 08/16/15 06:50 BUN 29 mg/dL (7-18) H 08/16/15 06:50 Creatinine 0.7 mg/dL (0.6-1.3) 08/16/15 06:50 Creat Clearance w eGFR > 60 (>60) 08/08/15 08:35 Calcium 9.5 mg/dL (8.5-10.1) 08/16/15 06:50 Total Bilirubin 0.2 mg/dL (0.2-1.0) D 08/08/15 08:35 AST 26 U/L (15-37) 08/08/15 08:35 ALT 33 U/L (12-78) 08/08/15 08:35 Alkaline Phosphatase 106 U/L (45-117) 08/08/15 08:35 Total Protein 6.1 g/dl (6.4-8.2) L 08/08/15 08:35 Albumin 2.4 g/dl (3.4-5.0) L 08/08/15 08:35 A/P 75 yo M with PMH HTN, DM, inguinal hernia a/w BRBPR and melena with multiple syncopal episodes. 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 Neuro- Anoxic brain injury s/p brainstem CVA- +brainstem functioning (pupils reactive, breathing over the vent). Not requiring medications for agitation. unresponsive. 2. CV- HTN- uncontrolled. increased lisinopril to 40mg will cont to monitor and titrate medications accordingly. Cont lisinopril/metoprolol/norvasc 3. Respiratory- s/p trach. saturating well. Vent dependent. no weaning potential at this time 4. Abdomen- s/p R hemicolectomy. s/p PEG tolerating tube feeds. Glucerna @ 50cc/ H. 5. Hypernatremia- elevated. Water deficit 4.3L. increase water flushes at 400cc Q6H, monitor 6. ID- C. diff -Tmax 100.4. stable leukocytosis. no source of infection. possible central fevers? Cdiff negative. Cont Vanco po 7. Endo- DM- improved. Cont lantus 25units and novolog 3units Q6H. cont FS, ISS 8. DVT/GI PPx- on scd, protonix 9. Poor prognosis, DNR. Pt awaiting placement in vent capable facility
--- NOTE | 2015-08-19 14:28 | PN ---
Progress Note (short form) - Note Progress Note: PULMONARY Remains vented, poorly responsive. Tolerating CPAP/PS. Last Vital Signs Temp Pulse Resp BP Pulse Ox 100.0 F H 91 H 17 139/75 100 08/19/15 14:26 08/19/15 14:00 08/19/15 14:23 08/19/15 14:00 08/18/15 22:00 Gen: vented, poorly responsive Heart: RRR Lung: decreased breath sounds at the bases Abd: soft, nontender, dressing dry Ext: + edema CBC, BMP 08/19/15 06:25 08/19/15 06:25 Active Medications Acetaminophen (Tylenol Oral Solution -) 650 mg GT Q6H PRN PRN Reason: FEVER Last Admin: 08/18/15 15:26 Dose: 650 mg Amino Acids (Prostat Sugar-Free Packet -) 30 ml GT BID [facility] Last Admin: 08/19/15 10:24 Dose: 30 ml Amlodipine Besylate (Norvasc -) 10 mg GT DAILY [facility] Last Admin: 08/19/15 10:23 Dose: 10 mg Chlorhexidine Gluconate (Peridex -) 15 ml MM BID [facility] Last Admin: 08/19/15 10:23 Dose: 15 ml Collagenase (Santyl -) 1 applic TP DAILY [facility] Last Admin: 08/19/15 10:30 Dose: 1 applic Ibuprofen (Motrin Oral Suspension -) 200 mg PO Q6H PRN PRN Reason: FEVER Last Admin: 08/15/15 18:03 Dose: 200 mg Insulin Aspart (Novolog Vial) 3 units SQ Q6HPO [facility] Last Admin: 08/19/15 12:07 Dose: 3 units Insulin Aspart (Novolog Vial) 0 units SQ Q6HPO [facility] PRN Reason: Protocol Last Admin: 08/19/15 12:04 Dose: Not Given Insulin Detemir (Levemir Vial -) 25 units SQ HS [facility] Last Admin: 08/18/15 22:51 Dose: 25 units Lisinopril (Prinivil -) 40 mg GT DAILY [facility] Metoprolol Tartrate (Lopressor Injection -) 5 mg IVPB Q6H PRN PRN Reason: HYPERTENSION Metoprolol Tartrate (Lopressor -) 100 mg GT BID [facility] Last Admin: 08/19/15 10:22 Dose: 100 mg Multivitamins (Thera-Plus -) 5 ml GT DAILY [facility] Last Admin: 08/19/15 10:25 Dose: 5 ml Mupirocin (Bactroban 2% Ointment -) 1 applic TP BID [facility] Last Admin: 08/18/15 22:51 Dose: 1 applic Ondansetron HCl (Zofran Injection -) 4 mg IVPB Q6H PRN PRN Reason: NAUSEA Pantoprazole Sodium (Protonix Packets For Oral Suspension -) 40 mg GT DAILY [facility] Last Admin: 08/19/15 10:24 Dose: 40 mg Silver Sulfadiazine (Silvadene -) 1 applic TP DAILY [facility] Last Admin: 08/18/15 12:55 Dose: 1 applic Vancomycin HCl (Vancomycin Oral Solution) 250 mg PO Q6HPO [facility] Last Admin: 08/19/15 06:25 Dose: 250 mg A/P Acute Respiratory Failure s/p Tracheostomy Acute CVA/Anoxic Brain Injury Acute Lower Diverticular GI Bleed Acute Blood Loss Anemia s/p Pneumonia HTN DM CKD + C Diff Ag Fever - antibiotics per ID - enteral feeds - DVT/GI prophylaxis - continue discussions with family regarding goals of care - poor prognosis for meaningful recovery - will need vent placement
[2015-08-19] MEDS: MUPIROCIN 2% TOPICAL OINTMENT 22 GM TUBE TP SCH ×2 (15:27→22:47)
[2015-08-19] MEDS: SILVER SULFADIAZINE 1% TOP CREAM 50 GM JAR TP SCH (15:28)
[2015-08-19] MEDS: ACETAMINOPHEN 650 MG/20.3 ML ORAL SOLUTION (CUPS) GT PRN ×2 (17:28→22:51)
[2015-08-19] MEDS: INSULIN DETEMIR 100 UNITS/ML MDV SQ SCH (22:55)
[2015-08-20] MEDS: INSULIN (NOVOLOG) ASPART 100 UNITS/ML 10ML VIAL SQ SCH ×10 (00:27→23:50)
[2015-08-20] MEDS: VANCOMYCIN 250 MG/5 ML ORAL SOLUTION PO SCH ×5 (00:28→23:50)
[2015-08-20] MEDS: ACETAMINOPHEN 650 MG/20.3 ML ORAL SOLUTION (CUPS) GT PRN ×2 (05:54→16:00)
--- NOTE | 2015-08-20 06:42 | PN ---
Progress Note (short form) - Note Progress Note: Pt seen and examined. unresponsive Current Medications Generic Name Dose Route Start Last Admin Trade Name Freq PRN Reason Stop Dose Admin Acetaminophen 650 mg 07/31/15 15:42 08/20/15 05:54 Tylenol Oral Solution - GT 650 mg Q6H PRN Administration FEVER Amino Acids 30 ml 08/11/15 22:00 08/19/15 22:47 Prostat Sugar-Free Packet - GT 30 ml BID KWAKU Administration Amlodipine Besylate 10 mg 08/01/15 10:00 08/19/15 10:23 Norvasc - GT 10 mg DAILY KWAKU Administration Chlorhexidine Gluconate 15 ml 07/28/15 22:00 08/19/15 22:47 Peridex - MM 15 ml BID KWAKU Administration Collagenase 1 applic 08/12/15 10:00 08/19/15 10:30 Santyl - TP 1 applic DAILY K[facility]AKU Administration Ibuprofen 200 mg 08/13/15 14:55 08/15/15 18:03 Motrin Oral Suspension - PO 200 mg Q6H PRN Administration FEVER Insulin Aspart 3 units 08/16/15 12:00 08/20/15 05:53 Novolog Vial SQ 3 units Q6HPO KWAKU Administration Insulin Aspart 0 units 08/16/15 12:00 08/20/15 05:53 Novolog Vial SQ 2 units Q6HPO KWAKU Administration Protocol Insulin Detemir 25 units 08/16/15 22:00 08/19/15 22:55 Levemir Vial - SQ 25 units HS KWAKU Administration Lisinopril 40 mg 08/20/15 10:00 Prinivil - GT DAILY KWAKU Metoprolol Tartrate 5 mg 07/28/15 19:09 Lopressor Injection - IVPB Q6H PRN HYPERTENSION Metoprolol Tartrate 100 mg 07/31/15 22:00 08/19/15 22:47 Lopressor - GT 100 mg BID KWAKU Administration Multivitamins 5 ml 07/31/15 15:38 08/19/15 10:25 Thera-Plus - GT 5 ml DAILY KWAKU Administration Mupirocin 1 applic 08/11/15 22:00 08/19/15 22:47 Bactroban 2% Ointment - TP 1 applic BID KWAKU Administration Ondansetron HCl 4 mg 07/28/15 19:09 Zofran Injection - IVPB Q6H PRN NAUSEA Pantoprazole Sodium 40 mg 08/01/15 10:00 08/19/15 10:24 Protonix Packets For Oral Suspension - GT 40 mg DAILY KWAKU Administration Silver Sulfadiazine 1 applic 08/18/15 11:45 08/19/15 15:28 Silvadene - TP 1 applic DAILY KWAKU Administration Vancomycin HCl 250 mg 08/14/15 10:34 08/20/15 05:54 Vancomycin Oral Solution PO 250 mg Q6HPO KWAKU Administration Last Vital Signs Temp Pulse Resp BP Pulse Ox 102.0 F H 96 H 18 140/81 99 08/20/15 02:00 08/20/15 04:00 08/20/15 04:00 08/20/15 04:00 08/19/15 10:00 General- resting comfortable, pt does not withdraw to pain, +gag reflex, spontaneous eye openning HEENT- PERRL, no secretions from trach CV- S1S2 RRR no murmur/rub/gallops Lungs- coarse breath sounds B/L no wheezing/rhonchi/rales Abdomen- soft NT/ND +LUQ PEG no guarding/rebound +BS Extremities- no edema Lines: trach/PEG/Rectal CBCD WBC 12.7 K/mm3 (4.0-10.0) H 08/20/15 06:35 RBC 3.12 M/mm3 (4.00-5.60) L 08/20/15 06:35 Hgb 8.9 GM/dL (11.7-16.9) L 08/20/15 06:35 Hct 28.6 % (35.4-49) L 08/20/15 06:35 MCV 91.8 fl (80-96) 08/20/15 06:35 MCHC 31.1 g/dl (32.0-35.9) L 08/20/15 06:35 RDW 15.7 % (11.9-15.9) 08/20/15 06:35 Plt Count 137 K/MM3 (134-434) 08/20/15 06:35 MPV 10.2 fl (7.5-11.1) 08/20/15 06:35 CMP Sodium 156 mmol/L (136-145) H 08/20/15 06:35 Potassium 3.9 mmol/L (3.5-5.1) 08/16/15 06:50 Chloride 114 mmol/L (98-107) H 08/16/15 06:50 Carbon Dioxide 30 mmol/L (21-32) 08/16/15 06:50 Anion Gap 10 (8-16) 08/16/15 06:50 BUN 29 mg/dL (7-18) H 08/16/15 06:50 Creatinine 0.7 mg/dL (0.6-1.3) 08/16/15 06:50 Creat Clearance w eGFR > 60 (>60) 08/08/15 08:35 Calcium 9.5 mg/dL (8.5-10.1) 08/16/15 06:50 Total Bilirubin 0.2 mg/dL (0.2-1.0) D 08/08/15 08:35 AST 26 U/L (15-37) 08/08/15 08:35 ALT 33 U/L (12-78) 08/08/15 08:35 Alkaline Phosphatase 106 U/L (45-117) 08/08/15 08:35 Total Protein 6.1 g/dl (6.4-8.2) L 08/08/15 08:35 Albumin 2.4 g/dl (3.4-5.0) L 08/08/15 08:35 A/P 75 yo M with PMH HTN, DM, inguinal hernia a/w BRBPR and melena with multiple syncopal episodes. 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 Neuro- Anoxic brain injury s/p brainstem CVA- +brainstem functioning (pupils reactive, breathing over the vent). Not requiring medications for agitation. unresponsive. 2. CV- HTN- improved. cont to monitor and titrate medications accordingly. Cont lisinopril/metoprolol/norvasc 3. Respiratory- s/p trach. saturating well. Vent dependent. no weaning potential at this time 4. Abdomen- s/p R hemicolectomy. s/p PEG tolerating tube feeds. Switch tube feeds to Jevity 1.5 @ 50cc/H. 5. Hypernatremia- elevated. Water deficit 4.3L. cont water flushes at 400cc Q6H , monitor 6. ID- C. diff -Tmax 102. stable leukocytosis. no source of infection. possible central fevers? Cdiff negative. Cont Vanco po 7. Endo- DM- improved. Cont lantus 25units and novolog 3units Q6H. cont FS, ISS 8. DVT/GI PPx- on scd, protonix 9. Poor prognosis, DNR. Pt awaiting placement in vent capable facility
[2015-08-20 07:39] LABS: BASOPHIL 0.6 % (0-2.0); EOSINOPHIL 3.9 % (0-4.5); MCH 28.6 pg (25.7-33.7); MCHC 31.1 g/dl (32.0-35.9); MEAN CELL VOLUME 91.8 fl (80-96); MEAN PLT VOLUME 10.2 fl (7.5-11.1); NEUTROPHILS 78.8 % (42.8-82.8); PLATELET COUNT 137 K/MM3 (134-434); RDW 15.7 % (11.9-15.9); WHITE BLOOD COUNT 12.7 K/mm3 (4.0-10.0)
[2015-08-20] MEDS: amLODIPine BESYLATE 10 MG TABLET (FP) GT SCH (09:00)
[2015-08-20] MEDS: LISINOPRIL 20 MG TABLET (FP) GT SCH (09:00)
[2015-08-20] MEDS: AMINO ACIDS/PROTEIN HYDROLYS SUGAR-FREE 30 ML PACKET GT SCH ×2 (09:02→21:15)
[2015-08-20] MEDS: PANTOPRAZOLE SOD 40 MG SUSPENSION PACKET GT SCH (09:02)
[2015-08-20] MEDS: METOPROLOL TARTRATE 50 MG TABLET (FP) GT SCH ×2 (09:02→21:14)
[2015-08-20] MEDS: CHLORHEXIDINE GLUCONATE 0.12% 15ML CUP MM SCH ×2 (09:03→21:15)
[2015-08-20] MEDS: MULTIVITAMINS THERAPEUTIC GT SCH (09:03)
[2015-08-20] MEDS: MUPIROCIN 2% TOPICAL OINTMENT 22 GM TUBE TP SCH ×2 (11:05→21:12)
[2015-08-20] MEDS: SILVER SULFADIAZINE 1% TOP CREAM 50 GM JAR TP SCH (11:05)
[2015-08-20] MEDS: COLLAGENASE CLOSTRIDIUM HIST. 30 GRAMS TUBE TP SCH (11:05)
--- NOTE | 2015-08-20 15:06 | PN ---
Progress Note (short form) - Note Progress Note: PULMONARY CHART REVIEWED PATIENT EXAMINED VENT SETTINGS NOTED TEMP CURVE DECREASING CLINICAL CONDITION UNCHANGED A/P Respiratory Failure s/p Tracheostomy Acute CVA/Anoxic Brain Injury S/P Acute Lower Diverticular GI Bleed Acute Blood Loss Anemia s/p Pneumonia HTN DM CKD + C Diff Ag Fever - continue vent support on ac mode no weaning potential at this time. - enteral feeds - DVT/GI prophylaxis - Prognosis poor - vent snf placement Demario BANUELOS MD
[2015-08-20] MEDS: INSULIN DETEMIR 100 UNITS/ML MDV SQ SCH (21:12)
[2015-08-21] MEDS: ACETAMINOPHEN 650 MG/20.3 ML ORAL SOLUTION (CUPS) GT PRN (02:06)
[2015-08-21] MEDS: VANCOMYCIN 250 MG/5 ML ORAL SOLUTION PO SCH ×4 (06:14→23:56)
[2015-08-21] MEDS: IBUPROFEN 100 MG/5 ML UNIT DOSE CUPS PO PRN (06:14)
[2015-08-21] MEDS: INSULIN (NOVOLOG) ASPART 100 UNITS/ML 10ML VIAL SQ SCH ×7 (06:16→23:57)
[2015-08-21 07:26] LABS: BASOPHIL 0.5 % (0-2.0); EOSINOPHIL 3.8 % (0-4.5); MCH 29.3 pg (25.7-33.7); MCHC 32.2 g/dl (32.0-35.9); MEAN CELL VOLUME 91.2 fl (80-96); MEAN PLT VOLUME 9.9 fl (7.5-11.1); NEUTROPHILS 77.1 % (42.8-82.8); RDW 15.6 % (11.9-15.9); WHITE BLOOD COUNT 11.5 K/mm3 (4.0-10.0)
[2015-08-21 09:18] LABS: PLATELET COUNT 119 K/MM3 (134-434)
--- NOTE | 2015-08-21 09:31 | PN ---
Progress Note (short form) - Note Progress Note: Pt seen and examined. unresponsive Current Medications Generic Name Dose Route Start Last Admin Trade Name Freq PRN Reason Stop Dose Admin Acetaminophen 650 mg 07/31/15 15:42 08/21/15 02:06 Tylenol Oral Solution - GT 650 mg Q6H PRN Administration FEVER Amino Acids 30 ml 08/11/15 22:00 08/20/15 21:15 Prostat Sugar-Free Packet - GT 30 ml BID KWAKU Administration Amlodipine Besylate 10 mg 08/01/15 10:00 08/20/15 09:00 Norvasc - GT 10 mg DAILY [facility]U Administration Chlorhexidine Gluconate 15 ml 07/28/15 22:00 08/20/15 21:15 Peridex - MM 15 ml BID KWAKU Administration Collagenase 1 applic 08/12/15 10:00 08/20/15 11:05 Santyl - TP 1 applic DAILY [facility]U Administration Ibuprofen 200 mg 08/13/15 14:55 08/21/15 06:14 Motrin Oral Suspension - PO 200 mg Q6H PRN Administration FEVER Insulin Aspart 3 units 08/16/15 12:00 08/21/15 06:16 Novolog Vial SQ 3 units Q6HPO KWAKU Administration Insulin Aspart 0 units 08/16/15 12:00 08/21/15 06:17 Novolog Vial SQ 4 units Q6HPO KWAKU Administration Protocol Insulin Detemir 25 units 08/16/15 22:00 08/20/15 21:12 Levemir Vial - SQ 25 units HS [facility]WAKU Administration Lisinopril 40 mg 08/20/15 10:00 08/20/15 09:00 Prinivil - GT 40 mg DAILY [facility]AKU Administration Metoprolol Tartrate 5 mg 07/28/15 19:09 Lopressor Injection - IVPB Q6H PRN HYPERTENSION Metoprolol Tartrate 100 mg 07/31/15 22:00 08/20/15 21:14 Lopressor - GT 100 mg BID KWKAU Administration Multivitamins 5 ml 07/31/15 15:38 08/20/15 09:03 Thera-Plus - GT 5 ml DAILY KWAKU Administration Mupirocin 1 applic 08/11/15 22:00 08/20/15 21:12 Bactroban 2% Ointment - TP 1 applic BID KWAKU Administration Ondansetron HCl 4 mg 07/28/15 19:09 Zofran Injection - IVPB Q6H PRN NAUSEA Pantoprazole Sodium 40 mg 08/01/15 10:00 08/20/15 09:02 Protonix Packets For Oral Suspension - GT 40 mg DAILY KWAKU Administration Silver Sulfadiazine 1 applic 08/18/15 11:45 08/20/15 11:05 Silvadene - TP 1 applic DAILY KWAKU Administration Vancomycin HCl 250 mg 08/14/15 10:34 08/21/15 06:14 Vancomycin Oral Solution PO 250 mg Q6HPO KWAKU Administration Last Vital Signs Temp Pulse Resp BP Pulse Ox 100.9 F H 91 H 14 129/78 100 08/21/15 07:59 08/21/15 07:59 08/21/15 06:10 08/21/15 07:59 08/20/15 22:00 General- resting comfortable, pt does not withdraw to pain, +gag reflex, spontaneous eye openning HEENT- PERRL, no secretions from trach CV- S1S2 RRR no murmur/rub/gallops Lungs- coarse breath sounds B/L no wheezing/rhonchi/rales Abdomen- soft NT/ND +LUQ PEG no guarding/rebound +BS Extremities- no edema Lines: trach/PEG/Rectal CBCD WBC 11.5 K/mm3 (4.0-10.0) H 08/21/15 06:30 RBC 2.93 M/mm3 (4.00-5.60) L 08/21/15 06:30 Hgb 8.6 GM/dL (11.7-16.9) L 08/21/15 06:30 Hct 26.7 % (35.4-49) L 08/21/15 06:30 MCV 91.2 fl (80-96) 08/21/15 06:30 MCHC 32.2 g/dl (32.0-35.9) 08/21/15 06:30 RDW 15.6 % (11.9-15.9) 08/21/15 06:30 Plt Count 119 K/MM3 (134-434) L 08/21/15 06:30 MPV 9.9 fl (7.5-11.1) 08/21/15 06:30 CMP Sodium 152 mmol/L (136-145) H 08/21/15 06:00 Potassium 3.9 mmol/L (3.5-5.1) 08/16/15 06:50 Chloride 114 mmol/L (98-107) H 08/16/15 06:50 Carbon Dioxide 30 mmol/L (21-32) 08/16/15 06:50 Anion Gap 10 (8-16) 08/16/15 06:50 BUN 29 mg/dL (7-18) H 08/16/15 06:50 Creatinine 0.7 mg/dL (0.6-1.3) 08/16/15 06:50 Creat Clearance w eGFR > 60 (>60) 08/08/15 08:35 Calcium 9.5 mg/dL (8.5-10.1) 08/16/15 06:50 Total Bilirubin 0.2 mg/dL (0.2-1.0) D 08/08/15 08:35 AST 26 U/L (15-37) 08/08/15 08:35 ALT 33 U/L (12-78) 08/08/15 08:35 Alkaline Phosphatase 106 U/L (45-117) 08/08/15 08:35 Total Protein 6.1 g/dl (6.4-8.2) L 08/08/15 08:35 Albumin 2.4 g/dl (3.4-5.0) L 08/08/15 08:35 A/P 75 yo M with PMH HTN, DM, inguinal hernia a/w BRBPR and melena with multiple syncopal episodes. 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 Neuro- Anoxic brain injury s/p brainstem CVA- +brainstem functioning (pupils reactive, breathing over the vent). Not requiring medications for agitation. unresponsive. 2. CV- HTN- elevated. Increase metoprolol to 125mg BID. cont to monitor and titrate medications accordingly. Cont lisinopril/metoprolol/norvasc 3. Respiratory- s/p trach. saturating well. Vent dependent. no weaning potential at this time 4. Abdomen- s/p R hemicolectomy. s/p PEG tolerating tube feeds. Switch tube feeds to Jevity 1.5 @ 50cc/H. 5. Hypernatremia- improved. Water deficit 3.45L. cont water flushes at 400cc Q6H , monitor 6. ID- C. diff -Tmax 101.7. stable leukocytosis. no source of infection. possible central fevers? Cdiff negative. Cont Vanco po 7. Endo- DM- uncontrolled possible due to change in tube feeds. will increase novolog to 5units Q6H and lantus to 28units. cont FS, ISS 8. DVT/GI PPx- on scd, protonix 9. Poor prognosis, DNR. Pt awaiting placement in vent capable facility
[2015-08-21] MEDS: COLLAGENASE CLOSTRIDIUM HIST. 30 GRAMS TUBE TP SCH (10:00)
[2015-08-21] MEDS: SILVER SULFADIAZINE 1% TOP CREAM 50 GM JAR TP SCH (10:00)
[2015-08-21] MEDS: MUPIROCIN 2% TOPICAL OINTMENT 22 GM TUBE TP SCH ×2 (10:00→21:18)
[2015-08-21] MEDS: amLODIPine BESYLATE 10 MG TABLET (FP) GT SCH (10:09)
[2015-08-21] MEDS: LISINOPRIL 20 MG TABLET (FP) GT SCH (10:09)
[2015-08-21] MEDS: MULTIVITAMINS THERAPEUTIC GT SCH (10:10)
[2015-08-21] MEDS: AMINO ACIDS/PROTEIN HYDROLYS SUGAR-FREE 30 ML PACKET GT SCH ×2 (10:10→21:18)
[2015-08-21] MEDS: METOPROLOL TARTRATE 50 MG TABLET (FP) GT SCH ×2 (10:44→21:17)
[2015-08-21] MEDS: CHLORHEXIDINE GLUCONATE 0.12% 15ML CUP MM SCH ×2 (15:51→21:16)
[2015-08-21] MEDS: PANTOPRAZOLE SOD 40 MG SUSPENSION PACKET GT SCH (18:45)
[2015-08-21] MEDS: INSULIN DETEMIR 100 UNITS/ML MDV SQ SCH (22:47)
[2015-08-22] MEDS: INSULIN (NOVOLOG) ASPART 100 UNITS/ML 10ML VIAL SQ SCH ×8 (05:51→23:04)
[2015-08-22] MEDS: VANCOMYCIN 250 MG/5 ML ORAL SOLUTION PO SCH ×4 (05:54→23:02)
[2015-08-22] MEDS: CHLORHEXIDINE GLUCONATE 0.12% 15ML CUP MM SCH ×2 (09:59→21:29)
[2015-08-22] MEDS: PANTOPRAZOLE SOD 40 MG SUSPENSION PACKET GT SCH (09:59)
[2015-08-22] MEDS: METOPROLOL TARTRATE 50 MG TABLET (FP) GT SCH ×2 (10:02→21:29)
[2015-08-22] MEDS: amLODIPine BESYLATE 10 MG TABLET (FP) GT SCH (10:03)
[2015-08-22] MEDS: LISINOPRIL 20 MG TABLET (FP) GT SCH (10:03)
[2015-08-22] MEDS: AMINO ACIDS/PROTEIN HYDROLYS SUGAR-FREE 30 ML PACKET GT SCH ×2 (10:04→21:30)
[2015-08-22] MEDS: MULTIVITAMINS THERAPEUTIC GT SCH (10:08)
[2015-08-22] MEDS: MUPIROCIN 2% TOPICAL OINTMENT 22 GM TUBE TP SCH ×2 (11:24→21:31)
[2015-08-22] MEDS: COLLAGENASE CLOSTRIDIUM HIST. 30 GRAMS TUBE TP SCH (11:24)
[2015-08-22] MEDS: SILVER SULFADIAZINE 1% TOP CREAM 50 GM JAR TP SCH (11:25)
--- NOTE | 2015-08-22 12:51 | PN ---
Progress Note (short form) - Note Progress Note: PULMONARY CHART REVIEWED PATIENT EXAMINED VENT SETTINGS NOTED/ APPEARS TO BE TOLERATING CPAP WITH PSV 15 TEMP CURVE DECREASING CLINICAL CONDITION UNCHANGED A/P Respiratory Failure s/p Tracheostomy Acute CVA/Anoxic Brain Injury S/P Acute Lower Diverticular GI Bleed Acute Blood Loss Anemia s/p Pneumonia HTN DM CKD + C Diff Ag Fever - continue vent support/would keep on a/c as weaning off vent given neurological status does not seem to be an option. - enteral feeds - DVT/GI prophylaxis - Prognosis poor - vent snf placement Demario BANUELOS MD
--- NOTE | 2015-08-22 13:35 | PN ---
Progress Note (short form) - Note Progress Note: Pt seen and examined. unresponsive Current Medications Generic Name Dose Route Start Last Admin Trade Name Freq PRN Reason Stop Dose Admin Acetaminophen 650 mg 07/31/15 15:42 08/21/15 02:06 Tylenol Oral Solution - GT 650 mg Q6H PRN Administration FEVER Amino Acids 30 ml 08/11/15 22:00 08/22/15 10:04 Prostat Sugar-Free Packet - GT 30 ml BID KWAKU Administration Amlodipine Besylate 10 mg 08/01/15 10:00 08/22/15 10:03 Norvasc - GT 10 mg DAILY K[facility]U Administration Chlorhexidine Gluconate 15 ml 07/28/15 22:00 08/22/15 09:59 Peridex - MM 15 ml BID K[facility]AKU Administration Collagenase 1 applic 08/12/15 10:00 08/22/15 11:24 Santyl - TP 1 applic DAILY [facility]U Administration Ibuprofen 200 mg 08/13/15 14:55 08/21/15 06:14 Motrin Oral Suspension - PO 200 mg Q6H PRN Administration FEVER Insulin Aspart 5 units 08/21/15 09:35 08/22/15 12:19 Novolog Vial SQ 5 units Q6HPO K[facility]U Administration Insulin Aspart 0 units 08/21/15 18:00 08/22/15 12:19 Novolog Vial SQ Not Given Q6HPO KWAKU Protocol Insulin Detemir 28 units 08/21/15 09:35 08/21/15 22:47 Levemir Vial SQ 28 units HS [facility]U Administration Lisinopril 40 mg 08/20/15 10:00 08/22/15 10:03 Prinivil - GT 40 mg DAILY [facility] Administration Metoprolol Tartrate 5 mg 07/28/15 19:09 Lopressor Injection - IVPB Q6H PRN HYPERTENSION Metoprolol Tartrate 125 mg 08/21/15 09:35 08/22/15 10:02 Lopressor - GT 125 mg BID [facility]U Administration Multivitamins 5 ml 07/31/15 15:38 08/22/15 10:08 Thera-Plus - GT 5 ml DAILY [facility] Administration Mupirocin 1 applic 08/11/15 22:00 08/22/15 11:24 Bactroban 2% Ointment - TP 1 applic BID [facility] Administration Ondansetron HCl 4 mg 07/28/15 19:09 Zofran Injection - IVPB Q6H PRN NAUSEA Pantoprazole Sodium 40 mg 08/01/15 10:00 08/22/15 09:59 Protonix Packets For Oral Suspension - GT 40 mg DAILY [facility] Administration Silver Sulfadiazine 1 applic 08/18/15 11:45 08/22/15 11:25 Silvadene - TP 1 applic DAILY [facility] Administration Vancomycin HCl 250 mg 08/14/15 10:34 08/22/15 12:20 Vancomycin Oral Solution PO 250 mg Q6HPO [facility] Administration Last Vital Signs Temp Pulse Resp BP Pulse Ox 100.8 F H 93 H 18 142/86 99 08/22/15 09:12 08/22/15 10:47 08/22/15 10:47 08/22/15 09:12 08/22/15 10:47 General- resting comfortable, pt does not withdraw to pain, +gag reflex, spontaneous eye openning HEENT- PERRL, no secretions from trach CV- S1S2 RRR no murmur/rub/gallops Lungs- coarse breath sounds B/L no wheezing/rhonchi/rales Abdomen- soft NT/ND +LUQ PEG no guarding/rebound +BS Extremities- no edema Lines: trach/PEG/Rectal A/P 75 yo M with PMH HTN, DM, inguinal hernia a/w BRBPR and melena with multiple syncopal episodes. 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 Neuro- Anoxic brain injury s/p brainstem CVA- +brainstem functioning (pupils reactive, breathing over the vent). Not requiring medications for agitation. unresponsive. 2. CV- HTN- stable. cont to monitor and titrate medications accordingly. Cont lisinopril/metoprolol/norvasc 3. Respiratory- s/p trach. saturating well. Vent dependent. no weaning potential at this time 4. Abdomen- s/p R hemicolectomy. s/p PEG tolerating tube feeds. Jevity 1.5 @ 50cc/H. 5. Hypernatremia- cont water flushes at 400cc Q6H, monitor 6. ID- C. diff -Tmax 101.8. stable leukocytosis. no source of infection. possible central fevers? Cdiff negative. Cont Vanco po 7. Endo- DM- now controlled. cont novolog 5units Q6H and lantus 28units. cont FS , ISS 8. DVT/GI PPx- on scd, protonix 9. Poor prognosis, DNR. Pt awaiting placement in vent capable facility
[2015-08-22] MEDS: ACETAMINOPHEN 650 MG/20.3 ML ORAL SOLUTION (CUPS) GT PRN (14:54)
[2015-08-22] MEDS: INSULIN DETEMIR 100 UNITS/ML MDV SQ SCH (21:30)
[2015-08-23] MEDS: INSULIN (NOVOLOG) ASPART 100 UNITS/ML 10ML VIAL SQ SCH ×6 (05:47→18:10)
[2015-08-23] MEDS: VANCOMYCIN 250 MG/5 ML ORAL SOLUTION PO SCH ×3 (05:48→18:11)
[2015-08-23] MEDS: ACETAMINOPHEN 650 MG/20.3 ML ORAL SOLUTION (CUPS) GT PRN (05:48)
[2015-08-23 07:40] LABS: BASOPHIL 0.6 % (0-2.0); EOSINOPHIL 4.6 % (0-4.5); MCH 29.7 pg (25.7-33.7); MCHC 32.8 g/dl (32.0-35.9); MEAN CELL VOLUME 90.5 fl (80-96); MEAN PLT VOLUME 9.7 fl (7.5-11.1); NEUTROPHILS 73.2 % (42.8-82.8); PLATELET COUNT 115 K/MM3 (134-434); RDW 15.2 % (11.9-15.9); WHITE BLOOD COUNT 8.9 K/mm3 (4.0-10.0)
[2015-08-23] MEDS: METOPROLOL TARTRATE 50 MG TABLET (FP) GT SCH ×2 (09:36→22:26)
[2015-08-23] MEDS: LISINOPRIL 20 MG TABLET (FP) GT SCH (09:39)
[2015-08-23] MEDS: amLODIPine BESYLATE 10 MG TABLET (FP) GT SCH (09:40)
[2015-08-23] MEDS: AMINO ACIDS/PROTEIN HYDROLYS SUGAR-FREE 30 ML PACKET GT SCH ×2 (09:56→22:27)
[2015-08-23] MEDS: MULTIVITAMINS THERAPEUTIC GT SCH (09:57)
[2015-08-23] MEDS: PANTOPRAZOLE SOD 40 MG SUSPENSION PACKET GT SCH (09:57)
[2015-08-23] MEDS: CHLORHEXIDINE GLUCONATE 0.12% 15ML CUP MM SCH ×2 (10:00→22:26)
[2015-08-23] MEDS: SILVER SULFADIAZINE 1% TOP CREAM 50 GM JAR TP SCH (10:00)
[2015-08-23] MEDS: COLLAGENASE CLOSTRIDIUM HIST. 30 GRAMS TUBE TP SCH (10:00)
--- NOTE | 2015-08-23 10:22 | PN ---
Progress Note (short form) - Note Progress Note: Pt seen and examined. unresponsive Current Medications Generic Name Dose Route Start Last Admin Trade Name Freq PRN Reason Stop Dose Admin Acetaminophen 650 mg 07/31/15 15:42 08/23/15 05:48 Tylenol Oral Solution - GT 650 mg Q6H PRN Administration FEVER Amino Acids 30 ml 08/11/15 22:00 08/23/15 09:56 Prostat Sugar-Free Packet - GT 30 ml BID [facility] Administration Amlodipine Besylate 10 mg 08/01/15 10:00 08/23/15 09:40 Norvasc - GT 10 mg DAILY [facility] Administration Chlorhexidine Gluconate 15 ml 07/28/15 22:00 08/22/15 21:29 Peridex - MM 15 ml BID [facility] Administration Collagenase 1 applic 08/12/15 10:00 08/22/15 11:24 Santyl - TP 1 applic DAILY [facility] Administration Ibuprofen 200 mg 08/13/15 14:55 08/21/15 06:14 Motrin Oral Suspension - PO 200 mg Q6H PRN Administration FEVER Insulin Aspart 5 units 08/21/15 09:35 08/23/15 05:47 Novolog Vial SQ 5 units Q6HPO [facility] Administration Insulin Aspart 0 units 08/21/15 18:00 08/23/15 05:47 Novolog Vial SQ 2 units Q6HPO [facility] Administration Protocol Insulin Detemir 28 units 08/21/15 09:35 08/22/15 21:30 Levemir Vial SQ 28 units HS [facility] Administration Lisinopril 40 mg 08/20/15 10:00 08/23/15 09:39 Prinivil - GT 40 mg DAILY [facility] Administration Metoprolol Tartrate 5 mg 07/28/15 19:09 Lopressor Injection - IVPB Q6H PRN HYPERTENSION Metoprolol Tartrate 125 mg 08/21/15 09:35 08/23/15 09:36 Lopressor - GT 125 mg BID [facility] Administration Multivitamins 5 ml 07/31/15 15:38 08/23/15 09:57 Thera-Plus - GT 5 ml DAILY [facility] Administration Mupirocin 1 applic 08/11/15 22:00 08/22/15 21:31 Bactroban 2% Ointment - TP 1 applic BID [facility] Administration Ondansetron HCl 4 mg 07/28/15 19:09 Zofran Injection - IVPB Q6H PRN NAUSEA Pantoprazole Sodium 40 mg 08/01/15 10:00 08/23/15 09:57 Protonix Packets For Oral Suspension - GT 40 mg DAILY [facility] Administration Silver Sulfadiazine 1 applic 08/18/15 11:45 08/22/15 11:25 Silvadene - TP 1 applic DAILY [facility] Administration Vancomycin HCl 250 mg 08/14/15 10:34 08/23/15 05:48 Vancomycin Oral Solution PO 250 mg Q6HPO [facility] Administration Last Vital Signs Temp Pulse Resp BP Pulse Ox 101.0 F H 85 14 149/81 98 08/23/15 05:00 08/23/15 05:00 08/23/15 06:12 08/23/15 05:00 08/22/15 22:00 General- resting comfortable, pt does not withdraw to pain, +gag reflex, spontaneous eye openning HEENT- PERRL, no secretions from trach CV- S1S2 RRR no murmur/rub/gallops Lungs- coarse breath sounds B/L no wheezing/rhonchi/rales Abdomen- soft NT/ND +LUQ PEG no guarding/rebound +BS Extremities- no edema Lines: trach/PEG/Rectal CMP Sodium 154 mmol/L (136-145) H 08/23/15 06:15 Potassium 3.9 mmol/L (3.5-5.1) 08/16/15 06:50 Chloride 114 mmol/L (98-107) H 08/16/15 06:50 Carbon Dioxide 30 mmol/L (21-32) 08/16/15 06:50 Anion Gap 10 (8-16) 08/16/15 06:50 BUN 29 mg/dL (7-18) H 08/16/15 06:50 Creatinine 0.7 mg/dL (0.6-1.3) 08/16/15 06:50 Creat Clearance w eGFR > 60 (>60) 08/08/15 08:35 Calcium 9.5 mg/dL (8.5-10.1) 08/16/15 06:50 Total Bilirubin 0.2 mg/dL (0.2-1.0) D 08/08/15 08:35 AST 26 U/L (15-37) 08/08/15 08:35 ALT 33 U/L (12-78) 08/08/15 08:35 Alkaline Phosphatase 106 U/L (45-117) 08/08/15 08:35 Total Protein 6.1 g/dl (6.4-8.2) L 08/08/15 08:35 Albumin 2.4 g/dl (3.4-5.0) L 08/08/15 08:35 A/P 75 yo M with PMH HTN, DM, inguinal hernia a/w BRBPR and melena with multiple syncopal episodes. 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 Neuro- Anoxic brain injury s/p brainstem CVA- +brainstem functioning (pupils reactive, breathing over the vent). Not requiring medications for agitation. unresponsive. 2. CV- HTN- stable. cont to monitor and titrate medications accordingly. Cont lisinopril/metoprolol/norvasc 3. Respiratory- s/p trach. saturating well. Vent dependent. no weaning potential at this time 4. Abdomen- s/p R hemicolectomy. s/p PEG tolerating tube feeds. Jevity 1.5 @ 50cc/H. 5. Hypernatremia- water deficit 4L. increase water flushes at 500cc Q6H, monitor 6. ID- C. diff -Tmax 101.1. leukocytosis resolved. no source of infection. possible central fevers? Cdiff negative. Cont Vanco po per ID 7. Endo- DM- now controlled. cont novolog 5units Q6H and lantus 28units. cont FS , ISS 8. DVT/GI PPx- on scd, protonix 9. Poor prognosis, DNR. Pt awaiting placement in vent capable facility
[2015-08-23] MEDS: MUPIROCIN 2% TOPICAL OINTMENT 22 GM TUBE TP SCH ×2 (11:00→22:27)
--- NOTE | 2015-08-23 12:47 | PN ---
Progress Note, Physician History of Present Illness: Pulmonary no change unresponsive on vent support ac mode,remains febrile. - Current Medication List Current Medications: Active Medications Acetaminophen (Tylenol Oral Solution -) 650 mg GT Q6H PRN PRN Reason: FEVER Last Admin: 08/23/15 05:48 Dose: 650 mg Amino Acids (Prostat Sugar-Free Packet -) 30 ml GT BID [facility] Last Admin: 08/23/15 09:56 Dose: 30 ml Amlodipine Besylate (Norvasc -) 10 mg GT DAILY [facility] Last Admin: 08/23/15 09:40 Dose: 10 mg Chlorhexidine Gluconate (Peridex -) 15 ml MM BID [facility] Last Admin: 08/22/15 21:29 Dose: 15 ml Collagenase (Santyl -) 1 applic TP DAILY [facility] Last Admin: 08/22/15 11:24 Dose: 1 applic Ibuprofen (Motrin Oral Suspension -) 200 mg PO Q6H PRN PRN Reason: FEVER Last Admin: 08/21/15 06:14 Dose: 200 mg Insulin Aspart (Novolog Vial) 5 units SQ Q6HPO [facility] Last Admin: 08/23/15 12:01 Dose: Not Given Insulin Aspart (Novolog Vial) 0 units SQ Q6HPO [facility] PRN Reason: Protocol Last Admin: 08/23/15 12:01 Dose: Not Given Insulin Detemir (Levemir Vial) 28 units SQ HS [facility] Last Admin: 08/22/15 21:30 Dose: 28 units Lisinopril (Prinivil -) 40 mg GT DAILY [facility] Last Admin: 08/23/15 09:39 Dose: 40 mg Metoprolol Tartrate (Lopressor Injection -) 5 mg IVPB Q6H PRN PRN Reason: HYPERTENSION Metoprolol Tartrate (Lopressor -) 125 mg GT BID [facility] Last Admin: 08/23/15 09:36 Dose: 125 mg Multivitamins (Thera-Plus -) 5 ml GT DAILY [facility] Last Admin: 08/23/15 09:57 Dose: 5 ml Mupirocin (Bactroban 2% Ointment -) 1 applic TP BID [facility] Last Admin: 08/22/15 21:31 Dose: 1 applic Ondansetron HCl (Zofran Injection -) 4 mg IVPB Q6H PRN PRN Reason: NAUSEA Pantoprazole Sodium (Protonix Packets For Oral Suspension -) 40 mg GT DAILY [facility] Last Admin: 08/23/15 09:57 Dose: 40 mg Silver Sulfadiazine (Silvadene -) 1 applic TP DAILY [facility] Last Admin: 08/22/15 11:25 Dose: 1 applic Vancomycin HCl (Vancomycin Oral Solution) 250 mg PO Q6HPO [facility] Last Admin: 08/23/15 12:02 Dose: Not Given - Objective Vital Signs: Vital Signs Temperature 101.0 F H 08/23/15 05:00 Pulse Rate 85 08/23/15 05:00 Respiratory Rate 13 08/23/15 10:30 Blood Pressure 149/81 08/23/15 05:00 O2 Sat by Pulse Oximetry (%) 98 08/22/15 22:00 Constitutional: Yes: Thin, Other (unresponsive) Eyes: Yes: WNL HENT: Yes: WNL Neck: Yes: Supple (trach) Cardiovascular: Yes: Regular Rate and Rhythm, S1, S2 Respiratory: Yes: Diminished (few scattered lamine rhonchi) Gastrointestinal: Yes: Normal Bowel Sounds, Soft Extremities: Yes: WNL Edema: No Labs: CBC, BMP 08/23/15 06:15 08/23/15 06:15 INR, PTT INR 1.30 (0.86-1.14) H 07/29/15 10:00 Problem List - Problems (1) Anoxic brain damage Code: G93.1 (2) Lower GI bleed Code: K92.2 (3) 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 - enteral feeds - DVT/GI prophylaxis - Prognosis poor DR HENRY
[2015-08-23] MEDS: INSULIN DETEMIR 100 UNITS/ML MDV SQ SCH (22:26)
[2015-08-24] MEDS: INSULIN (NOVOLOG) ASPART 100 UNITS/ML 10ML VIAL SQ SCH ×10 (00:13→23:43)
[2015-08-24] MEDS: VANCOMYCIN 250 MG/5 ML ORAL SOLUTION PO SCH ×5 (00:13→23:44)
[2015-08-24] MEDS: ACETAMINOPHEN 650 MG/20.3 ML ORAL SOLUTION (CUPS) GT PRN ×2 (06:45→15:00)
[2015-08-24 08:11] LABS: BASOPHIL 0.6 % (0-2.0); EOSINOPHIL 3.8 % (0-4.5); MCH 29.8 pg (25.7-33.7); MCHC 33.1 g/dl (32.0-35.9); MEAN CELL VOLUME 89.9 fl (80-96); MEAN PLT VOLUME 9.2 fl (7.5-11.1); NEUTROPHILS 74.3 % (42.8-82.8); PLATELET COUNT 125 K/MM3 (134-434); RDW 15.6 % (11.9-15.9); WHITE BLOOD COUNT 9.5 K/mm3 (4.0-10.0)
[2015-08-24] MEDS: LISINOPRIL 20 MG TABLET (FP) GT SCH (10:57)
[2015-08-24] MEDS: amLODIPine BESYLATE 10 MG TABLET (FP) GT SCH (10:57)
[2015-08-24] MEDS: PANTOPRAZOLE SOD 40 MG SUSPENSION PACKET GT SCH (10:58)
[2015-08-24] MEDS: MULTIVITAMINS THERAPEUTIC GT SCH (10:58)
[2015-08-24] MEDS: AMINO ACIDS/PROTEIN HYDROLYS SUGAR-FREE 30 ML PACKET GT SCH ×2 (10:58→22:32)
[2015-08-24] MEDS: METOPROLOL TARTRATE 50 MG TABLET (FP) GT SCH ×2 (10:59→22:22)
[2015-08-24] MEDS: CHLORHEXIDINE GLUCONATE 0.12% 15ML CUP MM SCH ×2 (10:59→22:32)
[2015-08-24] MEDS: MUPIROCIN 2% TOPICAL OINTMENT 22 GM TUBE TP SCH ×2 (11:30→22:33)
--- NOTE | 2015-08-24 11:45 | PN ---
Progress Note, Physician History of Present Illness: pulmonary no change,unresponsive on vent support ac mode,afebrile - Current Medication List Current Medications: Active Medications Acetaminophen (Tylenol Oral Solution -) 650 mg GT Q6H PRN PRN Reason: FEVER Last Admin: 08/24/15 06:45 Dose: 650 mg Amino Acids (Prostat Sugar-Free Packet -) 30 ml GT BID [facility] Last Admin: 08/24/15 10:58 Dose: 30 ml Amlodipine Besylate (Norvasc -) 10 mg GT DAILY [facility] Last Admin: 08/24/15 10:57 Dose: 10 mg Chlorhexidine Gluconate (Peridex -) 15 ml MM BID [facility] Last Admin: 08/24/15 10:59 Dose: 15 ml Collagenase (Santyl -) 1 applic TP DAILY [facility] Last Admin: 08/23/15 10:00 Dose: 1 applic Ibuprofen (Motrin Oral Suspension -) 200 mg PO Q6H PRN PRN Reason: FEVER Last Admin: 08/21/15 06:14 Dose: 200 mg Insulin Aspart (Novolog Vial) 5 units SQ Q6HPO [facility] Last Admin: 08/24/15 06:46 Dose: 5 units Insulin Aspart (Novolog Vial) 0 units SQ Q6HPO [facility] PRN Reason: Protocol Last Admin: 08/24/15 06:46 Dose: 2 units Insulin Detemir (Levemir Vial) 28 units SQ HS [facility] Last Admin: 08/23/15 22:26 Dose: 28 units Lisinopril (Prinivil -) 40 mg GT DAILY [facility] Last Admin: 08/24/15 10:57 Dose: 40 mg Metoprolol Tartrate (Lopressor Injection -) 5 mg IVPB Q6H PRN PRN Reason: HYPERTENSION Metoprolol Tartrate (Lopressor -) 125 mg GT BID [facility] Last Admin: 08/24/15 10:59 Dose: 125 mg Multivitamins (Thera-Plus -) 5 ml GT DAILY [facility] Last Admin: 08/24/15 10:58 Dose: 5 ml Mupirocin (Bactroban 2% Ointment -) 1 applic TP BID [facility] Last Admin: 08/23/15 22:27 Dose: 1 applic Ondansetron HCl (Zofran Injection -) 4 mg IVPB Q6H PRN PRN Reason: NAUSEA Pantoprazole Sodium (Protonix Packets For Oral Suspension -) 40 mg GT DAILY [facility] Last Admin: 08/24/15 10:58 Dose: 40 mg Silver Sulfadiazine (Silvadene -) 1 applic TP DAILY [facility] Last Admin: 08/23/15 10:00 Dose: 1 applic Vancomycin HCl (Vancomycin Oral Solution) 250 mg PO Q6HPO [facility] Last Admin: 08/24/15 06:45 Dose: 250 mg - Objective Vital Signs: Vital Signs Temperature 98.1 F 08/24/15 06:00 Pulse Rate 91 H 08/24/15 10:56 Respiratory Rate 13 08/24/15 10:56 Blood Pressure 142/83 08/24/15 10:56 O2 Sat by Pulse Oximetry (%) 99 08/23/15 22:00 Constitutional: Yes: Thin, Other (unresponsive) Eyes: Yes: WNL HENT: Yes: WNL Neck: Yes: Supple Cardiovascular: Yes: Regular Rate and Rhythm, S1, S2 Respiratory: Yes: Rhonchi (few rhonchi lamine) Gastrointestinal: Yes: Normal Bowel Sounds, Soft Extremities: Yes: WNL Edema: No Labs: CBC, BMP 08/24/15 07:15 08/24/15 07:15 INR, PTT INR 1.30 (0.86-1.14) H 07/29/15 10:00 Problem List - Problems (1) Anoxic brain damage Code: G93.1 (2) Lower GI bleed Code: K92.2 (3) 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 - enteral feeds - DVT/GI prophylaxis - Prognosis poor DR HENRY
--- NOTE | 2015-08-24 12:59 | PN ---
Progress Note (short form) - Note Progress Note: Subjective: Pt seen at bedside. He is non responsive. Objective: Last Vital Signs Temp Pulse Resp BP Pulse Ox 98.1 F 91 H 13 142/83 99 08/24/15 06:00 08/24/15 10:56 08/24/15 10:56 08/24/15 10:56 08/23/15 22:00 PE: Neuro: non responsive, appears comfortable, spontaneous eye movement Pulm: clear anteriorly, trach placed Cv: s1 s2 rrr no mrg Abd: peg tube CDI, soft, +Bs : rectal tube Ext: no edema, warm Vent Settings: AC/10/500/40/5 CBCD WBC 9.5 K/mm3 (4.0-10.0) 08/24/15 07:15 RBC 2.98 M/mm3 (4.00-5.60) L 08/24/15 07:15 Hgb 8.9 GM/dL (11.7-16.9) L 08/24/15 07:15 Hct 26.8 % (35.4-49) L 08/24/15 07:15 MCV 89.9 fl (80-96) 08/24/15 07:15 MCHC 33.1 g/dl (32.0-35.9) 08/24/15 07:15 RDW 15.6 % (11.9-15.9) 08/24/15 07:15 Plt Count 125 K/MM3 (134-434) L 08/24/15 07:15 MPV 9.2 fl (7.5-11.1) 08/24/15 07:15 CMP Sodium 149 mmol/L (136-145) H 08/24/15 07:15 Potassium 3.9 mmol/L (3.5-5.1) 08/16/15 06:50 Chloride 114 mmol/L (98-107) H 08/16/15 06:50 Carbon Dioxide 30 mmol/L (21-32) 08/16/15 06:50 Anion Gap 10 (8-16) 08/16/15 06:50 BUN 29 mg/dL (7-18) H 08/16/15 06:50 Creatinine 0.7 mg/dL (0.6-1.3) 08/16/15 06:50 Creat Clearance w eGFR > 60 (>60) 08/08/15 08:35 Calcium 9.5 mg/dL (8.5-10.1) 08/16/15 06:50 Total Bilirubin 0.2 mg/dL (0.2-1.0) D 08/08/15 08:35 AST 26 U/L (15-37) 08/08/15 08:35 ALT 33 U/L (12-78) 08/08/15 08:35 Alkaline Phosphatase 106 U/L (45-117) 08/08/15 08:35 Total Protein 6.1 g/dl (6.4-8.2) L 08/08/15 08:35 Albumin 2.4 g/dl (3.4-5.0) L 08/08/15 08:35 Current Medications Generic Name Dose Route Start Last Admin Trade Name Freq PRN Reason Stop Dose Admin Acetaminophen 650 mg 07/31/15 15:42 08/24/15 06:45 Tylenol Oral Solution - GT 650 mg Q6H PRN Administration FEVER Amino Acids 30 ml 08/11/15 22:00 08/24/15 10:58 Prostat Sugar-Free Packet - GT 30 ml BID [facility] Administration Amlodipine Besylate 10 mg 08/01/15 10:00 08/24/15 10:57 Norvasc - GT 10 mg DAILY [facility] Administration Chlorhexidine Gluconate 15 ml 07/28/15 22:00 08/24/15 10:59 Peridex - MM 15 ml BID [facility] Administration Collagenase 1 applic 08/12/15 10:00 08/23/15 10:00 Santyl - TP 1 applic DAILY [facility] Administration Ibuprofen 200 mg 08/13/15 14:55 08/21/15 06:14 Motrin Oral Suspension - PO 200 mg Q6H PRN Administration FEVER Insulin Aspart 5 units 08/21/15 09:35 08/24/15 12:15 Novolog Vial SQ 5 units Q6HPO [facility] Administration Insulin Aspart 0 units 08/21/15 18:00 08/24/15 12:16 Novolog Vial SQ 3 units Q6HPO [facility] Administration Protocol Insulin Detemir 28 units 08/21/15 09:35 08/23/15 22:26 Levemir Vial SQ 28 units HS [facility] Administration Lisinopril 40 mg 08/20/15 10:00 08/24/15 10:57 Prinivil - GT 40 mg DAILY [facility] Administration Metoprolol Tartrate 5 mg 07/28/15 19:09 Lopressor Injection - IVPB Q6H PRN HYPERTENSION Metoprolol Tartrate 125 mg 08/21/15 09:35 08/24/15 10:59 Lopressor - GT 125 mg BID [facility] Administration Multivitamins 5 ml 07/31/15 15:38 08/24/15 10:58 Thera-Plus - GT 5 ml DAILY [facility] Administration Mupirocin 1 applic 08/11/15 22:00 08/23/15 22:27 Bactroban 2% Ointment - TP 1 applic BID [facility] Administration Ondansetron HCl 4 mg 07/28/15 19:09 Zofran Injection - IVPB Q6H PRN NAUSEA Pantoprazole Sodium 40 mg 08/01/15 10:00 08/24/15 10:58 Protonix Packets For Oral Suspension - GT 40 mg DAILY [facility] Administration Silver Sulfadiazine 1 applic 08/18/15 11:45 08/23/15 10:00 Silvadene - TP 1 applic DAILY [facility] Administration Vancomycin HCl 250 mg 08/14/15 10:34 08/24/15 12:17 Vancomycin Oral Solution PO 250 mg Q6HPO [facility] Administration Assessment: 75 year old male with PMH HTN, DM, inguinal hernia admitted with BRBPR and melena with multiple syncopal episodes. 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 Plan: 1. Anoxic brain injury s/p brainstem CVA - +brainstem functioning: pupils reactive, breathing over the vent 2. HTN- stable - Cont lisinopril/metoprolol/norvasc - Monitor and increase as needed 3. Vent dependent s/p ROSAMARIA - s/p trach, vent dependent with no weaning potential at this time 4. s/p R hemicolectomy - PEG intact, cont with tube feeds of Jevity 1.5 @ 50cc/H 5. Hypernatremia - Water deficit 2.5L today - Cont water flushes at 500cc Q6H, monitor 6. Diarrhea - C diff on 08/02/15 toxin negative - Diarrhea reported today, resend c diff culture - Cont Vanco po per ID 7. Febrile - Leukocytosis resolved - Central fevers? Monitor 8. DM - cont novolog 5units Q6H - Lantus 28units - BGM, ISS ACHS 8. DVT/GI PPx- on scd, protonix 9. Poor prognosis, DNR. Pt awaiting placement in vent capable facility
[2015-08-24] MEDS: SILVER SULFADIAZINE 1% TOP CREAM 50 GM JAR TP SCH (14:00)
[2015-08-24] MEDS: COLLAGENASE CLOSTRIDIUM HIST. 30 GRAMS TUBE TP SCH (14:00)
[2015-08-24] MEDS: INSULIN DETEMIR 100 UNITS/ML MDV SQ SCH (22:32)
[2015-08-25] MEDS: INSULIN (NOVOLOG) ASPART 100 UNITS/ML 10ML VIAL SQ SCH ×6 (06:59→18:49)
[2015-08-25] MEDS: VANCOMYCIN 250 MG/5 ML ORAL SOLUTION PO SCH ×3 (07:00→18:26)
[2015-08-25 08:00] LABS: BASOPHIL 0.6 % (0-2.0); EOSINOPHIL 3.3 % (0-4.5); MCH 29.2 pg (25.7-33.7); MCHC 32.4 g/dl (32.0-35.9); MEAN CELL VOLUME 90.2 fl (80-96); MEAN PLT VOLUME 9.6 fl (7.5-11.1); NEUTROPHILS 76.1 % (42.8-82.8); PLATELET COUNT 138 K/MM3 (134-434); RDW 15.6 % (11.9-15.9); WHITE BLOOD COUNT 12.3 K/mm3 (4.0-10.0)
[2015-08-25] MEDS: ACETAMINOPHEN 650 MG/20.3 ML ORAL SOLUTION (CUPS) GT PRN ×2 (08:22→08:23)
[2015-08-25] MEDS: METOPROLOL TARTRATE 50 MG TABLET (FP) GT SCH ×2 (10:14→22:42)
[2015-08-25] MEDS: amLODIPine BESYLATE 10 MG TABLET (FP) GT SCH (10:14)
[2015-08-25] MEDS: LISINOPRIL 20 MG TABLET (FP) GT SCH (10:15)
[2015-08-25] MEDS: AMINO ACIDS/PROTEIN HYDROLYS SUGAR-FREE 30 ML PACKET GT SCH ×2 (10:15→22:42)
[2015-08-25] MEDS: CHLORHEXIDINE GLUCONATE 0.12% 15ML CUP MM SCH ×2 (10:15→22:42)
[2015-08-25] MEDS: PANTOPRAZOLE SOD 40 MG SUSPENSION PACKET GT SCH (10:16)
[2015-08-25] MEDS: MULTIVITAMINS THERAPEUTIC GT SCH (10:17)
[2015-08-25] MEDS: COLLAGENASE CLOSTRIDIUM HIST. 30 GRAMS TUBE TP SCH (12:00)
[2015-08-25] MEDS: SILVER SULFADIAZINE 1% TOP CREAM 50 GM JAR TP SCH (12:00)
[2015-08-25] MEDS: MUPIROCIN 2% TOPICAL OINTMENT 22 GM TUBE TP SCH ×2 (12:00→22:37)
--- NOTE | 2015-08-25 12:25 | PN ---
Progress Note, Physician History of Present Illness: PULMONARY NO CHANGE UNRESPONSIVE ON VENT SUPPORT,FEBRILE - Current Medication List Current Medications: Active Medications Acetaminophen (Tylenol Oral Solution -) 650 mg GT Q6H PRN PRN Reason: FEVER Last Admin: 08/25/15 08:23 Dose: 650 mg Amino Acids (Prostat Sugar-Free Packet -) 30 ml GT BID [facility] Last Admin: 08/25/15 10:15 Dose: 30 ml Amlodipine Besylate (Norvasc -) 10 mg GT DAILY [facility] Last Admin: 08/25/15 10:14 Dose: 10 mg Chlorhexidine Gluconate (Peridex -) 15 ml MM BID [facility] Last Admin: 08/25/15 10:15 Dose: 15 ml Collagenase (Santyl -) 1 applic TP DAILY [facility] Last Admin: 08/24/15 14:00 Dose: 1 applic Ibuprofen (Motrin Oral Suspension -) 200 mg PO Q6H PRN PRN Reason: FEVER Last Admin: 08/21/15 06:14 Dose: 200 mg Insulin Aspart (Novolog Vial) 5 units SQ Q6HPO [facility] Last Admin: 08/25/15 12:13 Dose: 5 units Insulin Aspart (Novolog Vial) 0 units SQ Q6HPO [facility] PRN Reason: Protocol Last Admin: 08/25/15 07:00 Dose: 2 units Insulin Detemir (Levemir Vial) 28 units SQ HS [facility] Last Admin: 08/24/15 22:32 Dose: 28 units Lisinopril (Prinivil -) 40 mg GT DAILY [facility] Last Admin: 08/25/15 10:15 Dose: 40 mg Metoprolol Tartrate (Lopressor Injection -) 5 mg IVPB Q6H PRN PRN Reason: HYPERTENSION Metoprolol Tartrate (Lopressor -) 125 mg GT BID [facility] Last Admin: 08/25/15 10:14 Dose: 125 mg Multivitamins (Thera-Plus -) 5 ml GT DAILY [facility] Last Admin: 08/25/15 10:17 Dose: 5 ml Mupirocin (Bactroban 2% Ointment -) 1 applic TP BID [facility] Last Admin: 08/24/15 22:33 Dose: 1 applic Ondansetron HCl (Zofran Injection -) 4 mg IVPB Q6H PRN PRN Reason: NAUSEA Pantoprazole Sodium (Protonix Packets For Oral Suspension -) 40 mg GT DAILY [facility] Last Admin: 08/25/15 10:16 Dose: 40 mg Silver Sulfadiazine (Silvadene -) 1 applic TP DAILY [facility] Last Admin: 08/24/15 14:00 Dose: 1 applic Vancomycin HCl (Vancomycin Oral Solution) 250 mg PO Q6HPO [facility] Last Admin: 08/25/15 07:00 Dose: 250 mg - Objective Vital Signs: Vital Signs Temperature 101.4 F H 08/25/15 08:17 Pulse Rate 78 08/25/15 10:00 Respiratory Rate 11 L 08/25/15 10:00 Blood Pressure 146/80 08/25/15 08:17 O2 Sat by Pulse Oximetry (%) 97 08/25/15 10:00 Constitutional: Yes: Thin, Other (UNRESPONSIVE) Eyes: Yes: WNL HENT: Yes: WNL Neck: Yes: Supple (TRACH) Cardiovascular: Yes: Regular Rate and Rhythm, S1, S2 Respiratory: Yes: Diminished Gastrointestinal: Yes: WNL Extremities: Yes: WNL Labs: CBC, BMP 08/25/15 06:00 08/25/15 06:00 INR, PTT INR 1.30 (0.86-1.14) H 07/29/15 10:00 Problem List - Problems (1) Anoxic brain damage Code: G93.1 (2) Lower GI bleed Code: K92.2 (3) 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 - enteral feeds - DVT/GI prophylaxis - Prognosis poor DR HENRY
--- NOTE | 2015-08-25 13:55 | PN ---
Progress Note (short form) - Note Progress Note: Subjective: Pt seen at bedside. He is non responsive. He appears comfortable. Objective: Last Vital Signs Temp Pulse Resp BP Pulse Ox 100.3 F H 79 17 145/80 100 08/26/15 06:00 08/26/15 06:00 08/26/15 06:26 08/26/15 06:00 08/25/15 22:00 PE: Neuro: non responsive, appears comfortable, spontaneous eye movement Pulm: clear anteriorly, trach placed Cv: s1 s2 rrr no mrg Abd: peg tube CDI, soft, +Bs Ext: no edema, warm Vent Settings: AC/10/500/30/5 CBCD WBC 11.1 K/mm3 (4.0-10.0) H 08/26/15 08:30 RBC 2.78 M/mm3 (4.00-5.60) L 08/26/15 08:30 Hgb 8.1 GM/dL (11.7-16.9) L 08/26/15 08:30 Hct 25.0 % (35.4-49) L 08/26/15 08:30 MCV 90.0 fl (80-96) 08/26/15 08:30 MCHC 32.4 g/dl (32.0-35.9) 08/26/15 08:30 RDW 15.9 % (11.9-15.9) 08/26/15 08:30 Plt Count 136 K/MM3 (134-434) 08/26/15 08:30 MPV 9.5 fl (7.5-11.1) 08/26/15 08:30 CMP Sodium 146 mmol/L (136-145) H 08/26/15 08:30 Potassium 3.4 mmol/L (3.5-5.1) L 08/26/15 08:30 Chloride 109 mmol/L (98-107) H 08/26/15 08:30 Carbon Dioxide 33 mmol/L (21-32) H 08/26/15 08:30 Anion Gap 4 (8-16) L 08/26/15 08:30 BUN 21 mg/dL (7-18) H D 08/26/15 08:30 Creatinine 0.5 mg/dL (0.6-1.3) L D 08/26/15 08:30 Creat Clearance w eGFR > 60 (>60) 08/08/15 08:35 Calcium 9.3 mg/dL (8.5-10.1) 08/26/15 08:30 Total Bilirubin 0.2 mg/dL (0.2-1.0) D 08/08/15 08:35 AST 26 U/L (15-37) 08/08/15 08:35 ALT 33 U/L (12-78) 08/08/15 08:35 Alkaline Phosphatase 106 U/L (45-117) 08/08/15 08:35 Total Protein 6.1 g/dl (6.4-8.2) L 08/08/15 08:35 Albumin 2.4 g/dl (3.4-5.0) L 08/08/15 08:35 Current Medications Generic Name Dose Route Start Last Admin Trade Name Freq PRN Reason Stop Dose Admin Acetaminophen 650 mg 07/31/15 15:42 08/25/15 08:23 Tylenol Oral Solution - GT 650 mg Q6H PRN Administration FEVER Amino Acids 30 ml 08/11/15 22:00 08/25/15 10:15 Prostat Sugar-Free Packet - GT 30 ml BID [facility] Administration Amlodipine Besylate 10 mg 08/01/15 10:00 08/25/15 10:14 Norvasc - GT 10 mg DAILY [facility] Administration Chlorhexidine Gluconate 15 ml 07/28/15 22:00 08/25/15 10:15 Peridex - MM 15 ml BID [facility] Administration Collagenase 1 applic 08/12/15 10:00 08/24/15 14:00 Santyl - TP 1 applic DAILY [facility] Administration Ibuprofen 200 mg 08/13/15 14:55 08/21/15 06:14 Motrin Oral Suspension - PO 200 mg Q6H PRN Administration FEVER Insulin Aspart 5 units 08/21/15 09:35 08/25/15 12:13 Novolog Vial SQ 5 units Q6HPO [facility] Administration Insulin Aspart 0 units 08/21/15 18:00 08/25/15 07:00 Novolog Vial SQ 2 units Q6HPO [facility] Administration Protocol Insulin Detemir 28 units 08/21/15 09:35 08/24/15 22:32 Levemir Vial SQ 28 units HS [facility] Administration Lisinopril 40 mg 08/20/15 10:00 08/25/15 10:15 Prinivil - GT 40 mg DAILY [facility] Administration Metoprolol Tartrate 5 mg 07/28/15 19:09 Lopressor Injection - IVPB Q6H PRN HYPERTENSION Metoprolol Tartrate 125 mg 08/21/15 09:35 08/25/15 10:14 Lopressor - GT 125 mg BID [facility] Administration Multivitamins 5 ml 07/31/15 15:38 08/25/15 10:17 Thera-Plus - GT 5 ml DAILY [facility] Administration Mupirocin 1 applic 08/11/15 22:00 08/24/15 22:33 Bactroban 2% Ointment - TP 1 applic BID [facility] Administration Ondansetron HCl 4 mg 07/28/15 19:09 Zofran Injection - IVPB Q6H PRN NAUSEA Pantoprazole Sodium 40 mg 08/01/15 10:00 08/25/15 10:16 Protonix Packets For Oral Suspension - GT 40 mg DAILY [facility] Administration Silver Sulfadiazine 1 applic 08/18/15 11:45 08/24/15 14:00 Silvadene - TP 1 applic DAILY [facility] Administration Vancomycin HCl 250 mg 08/14/15 10:34 08/25/15 13:15 Vancomycin Oral Solution PO 250 mg Q6HPO [facility] Administration Assessment: 75 year old male with PMH HTN, DM, inguinal hernia admitted with BRBPR and melena with multiple syncopal episodes. 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 Plan: 1. Anoxic brain injury s/p brainstem CVA - +brainstem functioning: pupils reactive 2. HTN- stable - Cont lisinopril/metoprolol/norvasc - Monitor and increase as needed 3. Vent dependent s/p ROSAMARIA - s/p trach, vent dependent with no weaning potential at this time 4. s/p R hemicolectomy - PEG intact, cont with tube feeds of Jevity 1.5 @ 50cc/H - Dietary re consult to adjust feeds d/t diarrhea 5. Hypernatremia - Water deficit 1.7 L today - Decrease water flushes at 250cc Q6H, monitor 6. Diarrhea - C diff on 08/02/15 toxin negative - Repeat c diff negative - will obtain dietary consult for eval of tube feeds - Cont PO vanc per ID 7. Febrile - Likely neurogenic as has been febrile majority of hospital stay - Cultures pending 8. DM - cont novolog 5units Q6H - Lantus 28units - BGM, ISS ACHS 9. Electrolytes: - Hypokalemia: replete 20meq today 8. DVT/GI PPx- on scd, protonix 9. Poor prognosis, DNR. Pt awaiting placement in vent capable facility
[2015-08-25] MEDS: INSULIN DETEMIR 100 UNITS/ML MDV SQ SCH (22:37)
[2015-08-26] MEDS: INSULIN (NOVOLOG) ASPART 100 UNITS/ML 10ML VIAL SQ SCH ×10 (00:42→23:03)
[2015-08-26] MEDS: VANCOMYCIN 250 MG/5 ML ORAL SOLUTION PO SCH ×5 (00:44→23:04)
[2015-08-26 09:10] LABS: BASOPHIL 0.6 % (0-2.0); EOSINOPHIL 3.7 % (0-4.5); MCH 29.2 pg (25.7-33.7); MCHC 32.4 g/dl (32.0-35.9); MEAN PLT VOLUME 9.5 fl (7.5-11.1); NEUTROPHILS 74.1 % (42.8-82.8); PLATELET COUNT 136 K/MM3 (134-434); RDW 15.9 % (11.9-15.9); WHITE BLOOD COUNT 11.1 K/mm3 (4.0-10.0)
[2015-08-26] MEDS: SILVER SULFADIAZINE 1% TOP CREAM 50 GM JAR TP SCH (09:33)
[2015-08-26] MEDS: CHLORHEXIDINE GLUCONATE 0.12% 15ML CUP MM SCH ×2 (09:34→23:02)
[2015-08-26] MEDS: PANTOPRAZOLE SOD 40 MG SUSPENSION PACKET GT SCH (09:34)
[2015-08-26] MEDS: amLODIPine BESYLATE 10 MG TABLET (FP) GT SCH (09:35)
[2015-08-26] MEDS: LISINOPRIL 20 MG TABLET (FP) GT SCH (09:35)
[2015-08-26] MEDS: METOPROLOL TARTRATE 50 MG TABLET (FP) GT SCH ×2 (09:35→23:02)
[2015-08-26] MEDS: MUPIROCIN 2% TOPICAL OINTMENT 22 GM TUBE TP SCH ×2 (09:36→23:01)
[2015-08-26] MEDS: COLLAGENASE CLOSTRIDIUM HIST. 30 GRAMS TUBE TP SCH (09:36)
[2015-08-26] MEDS: AMINO ACIDS/PROTEIN HYDROLYS SUGAR-FREE 30 ML PACKET GT SCH ×2 (09:36→23:02)
[2015-08-26] MEDS: MULTIVITAMINS THERAPEUTIC GT SCH (09:36)
[2015-08-26 09:37] LABS: CALCIUM 9.3 mg/dL (8.5-10.1); CREATININE 0.5 mg/dL (0.6-1.3)
--- NOTE | 2015-08-26 12:26 | PN ---
Progress Note (short form) - Note Progress Note: PULMONARY Remains vented, poorly responsive. Low grade fevers overnight. Last Vital Signs Temp Pulse Resp BP Pulse Ox 98.1 F 76 11 L 143/77 99 08/26/15 10:00 08/26/15 10:15 08/26/15 10:15 08/26/15 10:00 08/26/15 10:15 Gen: vented, poorly responsive Heart: RRR Lung: decreased breath sounds at the bases Abd: soft, nontender, dressing dry Ext: + edema CBC, BMP 08/26/15 08:30 08/26/15 08:30 Active Medications Acetaminophen (Tylenol Oral Solution -) 650 mg GT Q6H PRN PRN Reason: FEVER Last Admin: 08/25/15 08:23 Dose: 650 mg Amino Acids (Prostat Sugar-Free Packet -) 30 ml GT BID [facility] Last Admin: 08/26/15 09:36 Dose: 30 ml Amlodipine Besylate (Norvasc -) 10 mg GT DAILY [facility] Last Admin: 08/26/15 09:35 Dose: 10 mg Chlorhexidine Gluconate (Peridex -) 15 ml MM BID [facility] Last Admin: 08/26/15 09:34 Dose: 15 ml Collagenase (Santyl -) 1 applic TP DAILY [facility] Last Admin: 08/26/15 09:36 Dose: 1 applic Ibuprofen (Motrin Oral Suspension -) 200 mg PO Q6H PRN PRN Reason: FEVER Last Admin: 08/21/15 06:14 Dose: 200 mg Insulin Aspart (Novolog Vial) 5 units SQ Q6HPO [facility] Last Admin: 08/26/15 05:22 Dose: 5 units Insulin Aspart (Novolog Vial) 0 units SQ Q6HPO [facility] PRN Reason: Protocol Last Admin: 08/26/15 05:22 Dose: Not Given Insulin Detemir (Levemir Vial) 28 units SQ HS [facility] Last Admin: 08/25/15 22:37 Dose: 28 units Lisinopril (Prinivil -) 40 mg GT DAILY [facility] Last Admin: 08/26/15 09:35 Dose: 40 mg Metoprolol Tartrate (Lopressor Injection -) 5 mg IVPB Q6H PRN PRN Reason: HYPERTENSION Metoprolol Tartrate (Lopressor -) 125 mg GT BID [facility] Last Admin: 08/26/15 09:35 Dose: 125 mg Multivitamins (Thera-Plus -) 5 ml GT DAILY [facility] Last Admin: 08/26/15 09:36 Dose: 5 ml Mupirocin (Bactroban 2% Ointment -) 1 applic TP BID [facility] Last Admin: 08/26/15 09:36 Dose: 1 applic Ondansetron HCl (Zofran Injection -) 4 mg IVPB Q6H PRN PRN Reason: NAUSEA Pantoprazole Sodium (Protonix Packets For Oral Suspension -) 40 mg GT DAILY [facility] Last Admin: 08/26/15 09:34 Dose: 40 mg Silver Sulfadiazine (Silvadene -) 1 applic TP DAILY [facility] Last Admin: 08/26/15 09:33 Dose: 1 applic Vancomycin HCl (Vancomycin Oral Solution) 250 mg PO Q6HPO [facility] Last Admin: 08/26/15 05:21 Dose: 250 mg A/P Acute Respiratory Failure s/p Tracheostomy Acute CVA/Anoxic Brain Injury Acute Lower Diverticular GI Bleed Acute Blood Loss Anemia s/p Pneumonia HTN DM CKD + C Diff Ag Fever - antibiotics per ID - enteral feeds - DVT/GI prophylaxis - poor prognosis for meaningful recovery - will need vent placement
[2015-08-26] MEDS: INSULIN DETEMIR 100 UNITS/ML MDV SQ SCH (23:01)
[2015-08-27] MEDS: ACETAMINOPHEN 650 MG/20.3 ML ORAL SOLUTION (CUPS) GT PRN ×3 (02:45→16:00)
[2015-08-27] MEDS: INSULIN (NOVOLOG) ASPART 100 UNITS/ML 10ML VIAL SQ SCH ×6 (06:35→17:57)
[2015-08-27] MEDS: VANCOMYCIN 250 MG/5 ML ORAL SOLUTION PO SCH ×3 (06:36→17:31)
[2015-08-27 07:09] LABS: BASOPHIL 0.4 % (0-2.0); EOSINOPHIL 2.7 % (0-4.5); MCH 29.3 pg (25.7-33.7); MCHC 32.8 g/dl (32.0-35.9); MEAN CELL VOLUME 89.4 fl (80-96); MEAN PLT VOLUME 9.7 fl (7.5-11.1); NEUTROPHILS 80.5 % (42.8-82.8); PLATELET COUNT 150 K/MM3 (134-434); RDW 15.8 % (11.9-15.9)
[2015-08-27 07:27] LABS: CALCIUM 9.5 mg/dL (8.5-10.1); CREATININE 0.6 mg/dL (0.6-1.3)
[2015-08-27] MEDS: COLLAGENASE CLOSTRIDIUM HIST. 30 GRAMS TUBE TP SCH (09:57)
[2015-08-27] MEDS: MUPIROCIN 2% TOPICAL OINTMENT 22 GM TUBE TP SCH ×2 (09:57→22:24)
[2015-08-27] MEDS: SILVER SULFADIAZINE 1% TOP CREAM 50 GM JAR TP SCH (09:58)
[2015-08-27] MEDS: METOPROLOL TARTRATE 50 MG TABLET (FP) GT SCH ×2 (10:06→22:24)
[2015-08-27] MEDS: CHLORHEXIDINE GLUCONATE 0.12% 15ML CUP MM SCH ×2 (10:08→22:24)
[2015-08-27] MEDS: amLODIPine BESYLATE 10 MG TABLET (FP) GT SCH (10:08)
[2015-08-27] MEDS: LISINOPRIL 20 MG TABLET (FP) GT SCH (10:08)
[2015-08-27] MEDS: MULTIVITAMINS THERAPEUTIC GT SCH (10:09)
[2015-08-27] MEDS: PANTOPRAZOLE SOD 40 MG SUSPENSION PACKET GT SCH (10:09)
[2015-08-27] MEDS: AMINO ACIDS/PROTEIN HYDROLYS SUGAR-FREE 30 ML PACKET GT SCH ×2 (10:09→22:25)
--- NOTE | 2015-08-27 11:49 | PN ---
Progress Note, Physician History of Present Illness: PULMONARY NO CHANGE POORLY RESPONSIVE ON VENT SUPPORT AC MODE. - Current Medication List Current Medications: Active Medications Acetaminophen (Tylenol Oral Solution -) 650 mg GT Q6H PRN PRN Reason: FEVER Last Admin: 08/27/15 10:23 Dose: 650 mg Amino Acids (Prostat Sugar-Free Packet -) 30 ml GT BID [facility] Last Admin: 08/27/15 10:09 Dose: 30 ml Amlodipine Besylate (Norvasc -) 10 mg GT DAILY [facility] Last Admin: 08/27/15 10:08 Dose: 10 mg Chlorhexidine Gluconate (Peridex -) 15 ml MM BID [facility] Last Admin: 08/27/15 10:08 Dose: 15 ml Collagenase (Santyl -) 1 applic TP DAILY [facility] Last Admin: 08/27/15 09:57 Dose: 1 applic Ibuprofen (Motrin Oral Suspension -) 200 mg PO Q6H PRN PRN Reason: FEVER Last Admin: 08/21/15 06:14 Dose: 200 mg Insulin Aspart (Novolog Vial) 5 units SQ Q6HPO [facility] Last Admin: 08/27/15 11:38 Dose: 5 units Insulin Aspart (Novolog Vial) 0 units SQ Q6HPO [facility] PRN Reason: Protocol Last Admin: 08/27/15 11:38 Dose: 2 units Insulin Detemir (Levemir Vial) 28 units SQ HS [facility] Last Admin: 08/26/15 23:01 Dose: 28 units Lisinopril (Prinivil -) 40 mg GT DAILY [facility] Last Admin: 08/27/15 10:08 Dose: 40 mg Metoprolol Tartrate (Lopressor Injection -) 5 mg IVPB Q6H PRN PRN Reason: HYPERTENSION Metoprolol Tartrate (Lopressor -) 125 mg GT BID [facility] Last Admin: 08/27/15 10:06 Dose: 125 mg Multivitamins (Thera-Plus -) 5 ml GT DAILY [facility] Last Admin: 08/27/15 10:09 Dose: 5 ml Mupirocin (Bactroban 2% Ointment -) 1 applic TP BID [facility] Last Admin: 08/27/15 09:57 Dose: 1 applic Ondansetron HCl (Zofran Injection -) 4 mg IVPB Q6H PRN PRN Reason: NAUSEA Pantoprazole Sodium (Protonix Packets For Oral Suspension -) 40 mg GT DAILY [facility] Last Admin: 08/27/15 10:09 Dose: 40 mg Silver Sulfadiazine (Silvadene -) 1 applic TP DAILY [facility] Last Admin: 08/27/15 09:58 Dose: 1 applic Vancomycin HCl (Vancomycin Oral Solution) 250 mg PO Q6HPO [facility] Last Admin: 08/27/15 06:36 Dose: 250 mg - Objective Vital Signs: Vital Signs Temperature 101.2 F H 08/27/15 10:00 Pulse Rate 102 H 08/27/15 10:00 Respiratory Rate 18 08/27/15 10:00 Blood Pressure 151/74 08/27/15 10:00 O2 Sat by Pulse Oximetry (%) 99 08/26/15 22:00 Constitutional: Yes: Thin, Other (POORLY RESPONSIVE) Eyes: Yes: WNL HENT: Yes: WNL Neck: Yes: Supple (TRACH) Cardiovascular: Yes: Regular Rate and Rhythm, S1, S2 Respiratory: Yes: Diminished Gastrointestinal: Yes: WNL Extremities: Yes: WNL Edema: No Labs: CBC, BMP 08/27/15 06:30 08/27/15 06:30 INR, PTT INR 1.30 (0.86-1.14) H 07/29/15 10:00 Problem List - Problems (1) Anoxic brain damage Code: G93.1 (2) Lower GI bleed Code: K92.2 (3) 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 - enteral feeds - DVT/GI prophylaxis - Prognosis poor - [place] placement vent facility DR HENRY
--- NOTE | 2015-08-27 15:32 | PN ---
Progress Note (short form) - Note Progress Note: SUBJECTIVE: Patient seen and examined. On vent. No signs of pain. OBJECTIVE GENERAL: In no apparent distress. HEAD: Normal with no signs of trauma. EYES: Pupils equal, round and reactive to light, sclera anicteric, conjunctiva clear. ENT: Ears normal, nares patent. Dry mucous membranes. NECK: No lymphadenopathy, JVD, or masses. LUNGS: Mechanical breath sounds. No wheezes, rhonchi or crackles. HEART: Regular rate and rhythm, normal S1 and S2 without murmur, rub or gallop. ABDOMEN: Soft, nontender, normoactive bowel sounds. No guarding, no rebound. No masses. EXTREMITIES: 2+ edema RUE and RLE; 2+pulses, warm, well-perfused. NEUROLOGICAL: Opened eyes to gentle stimulation. Not following commands. Right- sided facial droop. CBCD WBC 13.0 K/mm3 (4.0-10.0) H 08/27/15 06:30 RBC 2.94 M/mm3 (4.00-5.60) L 08/27/15 06:30 Hgb 8.6 GM/dL (11.7-16.9) L 08/27/15 06:30 Hct 26.3 % (35.4-49) L 08/27/15 06:30 MCV 89.4 fl (80-96) 08/27/15 06:30 MCHC 32.8 g/dl (32.0-35.9) 08/27/15 06:30 RDW 15.8 % (11.9-15.9) 08/27/15 06:30 Plt Count 150 K/MM3 (134-434) 08/27/15 06:30 MPV 9.7 fl (7.5-11.1) 08/27/15 06:30 CMP Sodium 150 mmol/L (136-145) H 08/27/15 06:30 Potassium 3.7 mmol/L (3.5-5.1) 08/27/15 06:30 Chloride 111 mmol/L (98-107) H 08/27/15 06:30 Carbon Dioxide 30 mmol/L (21-32) 08/27/15 06:30 Anion Gap 9 (8-16) 08/27/15 06:30 BUN 23 mg/dL (7-18) H 08/27/15 06:30 Creatinine 0.6 mg/dL (0.6-1.3) 08/27/15 06:30 Creat Clearance w eGFR > 60 (>60) 08/08/15 08:35 Calcium 9.5 mg/dL (8.5-10.1) 08/27/15 06:30 Total Bilirubin 0.2 mg/dL (0.2-1.0) D 08/08/15 08:35 AST 26 U/L (15-37) 08/08/15 08:35 ALT 33 U/L (12-78) 08/08/15 08:35 Alkaline Phosphatase 106 U/L (45-117) 08/08/15 08:35 Total Protein 6.1 g/dl (6.4-8.2) L 08/08/15 08:35 Albumin 2.4 g/dl (3.4-5.0) L 08/08/15 08:35 Current Medications Generic Name Dose Route Start Last Admin Trade Name Jaylanq PRN Reason Stop Dose Admin Acetaminophen 650 mg 07/31/15 15:42 08/27/15 10:23 Tylenol Oral Solution - GT 650 mg Q6H PRN Administration FEVER Amino Acids 30 ml 08/11/15 22:00 08/27/15 10:09 Prostat Sugar-Free Packet - GT 30 ml BID [facility] Administration Amlodipine Besylate 10 mg 08/01/15 10:00 08/27/15 10:08 Norvasc - GT 10 mg DAILY [facility] Administration Chlorhexidine Gluconate 15 ml 07/28/15 22:00 08/27/15 10:08 Peridex - MM 15 ml BID [facility] Administration Collagenase 1 applic 08/12/15 10:00 08/27/15 09:57 Santyl - TP 1 applic DAILY [facility] Administration Ibuprofen 200 mg 08/13/15 14:55 08/21/15 06:14 Motrin Oral Suspension - PO 200 mg Q6H PRN Administration FEVER Insulin Aspart 5 units 08/21/15 09:35 08/27/15 11:38 Novolog Vial SQ 5 units Q6HPO [facility] Administration Insulin Aspart 0 units 08/21/15 18:00 08/27/15 11:38 Novolog Vial SQ 2 units Q6HPO [facility] Administration Protocol Insulin Detemir 28 units 08/21/15 09:35 08/26/15 23:01 Levemir Vial SQ 28 units HS [facility] Administration Lisinopril 40 mg 08/20/15 10:00 08/27/15 10:08 Prinivil - GT 40 mg DAILY [facility] Administration Metoprolol Tartrate 5 mg 07/28/15 19:09 Lopressor Injection - IVPB Q6H PRN HYPERTENSION Metoprolol Tartrate 125 mg 08/21/15 09:35 08/27/15 10:06 Lopressor - GT 125 mg BID [facility] Administration Multivitamins 5 ml 07/31/15 15:38 08/27/15 10:09 Thera-Plus - GT 5 ml DAILY [facility] Administration Mupirocin 1 applic 08/11/15 22:00 08/27/15 09:57 Bactroban 2% Ointment - TP 1 applic BID [facility] Administration Ondansetron HCl 4 mg 07/28/15 19:09 Zofran Injection - IVPB Q6H PRN NAUSEA Pantoprazole Sodium 40 mg 08/01/15 10:00 08/27/15 10:09 Protonix Packets For Oral Suspension - GT 40 mg DAILY [facility] Administration Silver Sulfadiazine 1 applic 08/18/15 11:45 08/27/15 09:58 Silvadene - TP 1 applic DAILY [facility] Administration Vancomycin HCl 250 mg 08/26/15 18:00 08/27/15 15:02 Vancomycin Oral Solution PO 250 mg Q6HPO [facility] Administration A/P: This is hospital day #61 for this 75 year-old male with HTN, IDDM, inguinal hernia, and diverticular bleed s/p R hemicolectomy, 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 Anoxic brain injury s/p brainstem CVA --+brainstem functioning; opens eyes to gentle physical stimulation Hypertension --continue lisinopril, metoprolol, amlodipine Respiratory failure secondary to anoxic brain injury --s/p trach, vent dependent, no potential for weaning --vent settings: AC/10/500/30/5 s/p diverticular bleed, right hemicolectomy --s/p PEG --tolerating feeds Hypernatremia --stop free water q3 hours; instead, program tube feed flushes to 40cc's per hour = 960cc's q24 hours and see if Na improves C. difficile colitis --continue PO Vanc per PEG IDDM --Levemir --Novolog standing and sliding scale --fingersticks Multiple pressure ulcers -- Stage III sacrum, Stage II left ear -- optifoam, Allevyn, Accuair mattress -- frequent turning and positioning FLUIDS/ELECTROLYTES/NUTRITION FLUIDS: Hypernatremic; will give 40cc free water hourly with tube feeds ELECTROLYTES: replete as indicated NUTRITION: Glucerna tube feeds at goal DVT Prophylaxis --SCDs, lovenox DISPO: Placement issue due to lack of any insurance. Advised case management is working on this. Needs transfer to long-term care facility. DNR.
[2015-08-27] MEDS: ENOXAPARIN NA (PORCINE) 40 MG/0.4 ML DISP.SYRIN SQ SCH (18:24)
[2015-08-27] MEDS: INSULIN DETEMIR 100 UNITS/ML MDV SQ SCH (22:25)
[2015-08-28] MEDS: INSULIN (NOVOLOG) ASPART 100 UNITS/ML 10ML VIAL SQ SCH ×8 (00:41→17:44)
[2015-08-28] MEDS: VANCOMYCIN 250 MG/5 ML ORAL SOLUTION PO SCH ×4 (00:42→17:42)
[2015-08-28] MEDS: IBUPROFEN 100 MG/5 ML UNIT DOSE CUPS PO PRN (06:48)
[2015-08-28 08:15] LABS: BASOPHIL 0.7 % (0-2.0); EOSINOPHIL 2.5 % (0-4.5); MCH 29.4 pg (25.7-33.7); MCHC 32.4 g/dl (32.0-35.9); MEAN CELL VOLUME 90.5 fl (80-96); MEAN PLT VOLUME 9.6 fl (7.5-11.1); PLATELET COUNT 173 K/MM3 (134-434); RDW 16.4 % (11.9-15.9); WHITE BLOOD COUNT 13.8 K/mm3 (4.0-10.0)
[2015-08-28 08:41] LABS: ALBUMIN 2.7 g/dl (3.4-5.0); ANION GAP 6 (8-16); CALCIUM 9.4 mg/dL (8.5-10.1); CO2 31 mmol/L (21-32); CREATININE 0.6 mg/dL (0.6-1.3); GLUCOSE,RANDOM 140 mg/dL (74-106); SGOT/AST 23 U/L (15-37); SGPT/ALT 37 U/L (12-78)
[2015-08-28 08:43] LABS: ALK PHOS 111 U/L (45-117); BILIRUBIN,TOTAL 0.3 mg/dL (0.2-1.0); TOT PROT 6.9 g/dl (6.4-8.2)
[2015-08-28] MEDS: MUPIROCIN 2% TOPICAL OINTMENT 22 GM TUBE TP SCH ×2 (10:09→22:05)
[2015-08-28] MEDS: METOPROLOL TARTRATE 50 MG TABLET (FP) GT SCH ×2 (10:10→22:04)
[2015-08-28] MEDS: CHLORHEXIDINE GLUCONATE 0.12% 15ML CUP MM SCH ×2 (10:11→22:04)
[2015-08-28] MEDS: LISINOPRIL 20 MG TABLET (FP) GT SCH (10:11)
[2015-08-28] MEDS: amLODIPine BESYLATE 10 MG TABLET (FP) GT SCH (10:11)
[2015-08-28] MEDS: ENOXAPARIN NA (PORCINE) 40 MG/0.4 ML DISP.SYRIN SQ SCH (10:11)
[2015-08-28] MEDS: COLLAGENASE CLOSTRIDIUM HIST. 30 GRAMS TUBE TP SCH (10:12)
[2015-08-28] MEDS: AMINO ACIDS/PROTEIN HYDROLYS SUGAR-FREE 30 ML PACKET GT SCH ×2 (10:12→22:04)
[2015-08-28] MEDS: PANTOPRAZOLE SOD 40 MG SUSPENSION PACKET GT SCH (10:12)
[2015-08-28] MEDS: SILVER SULFADIAZINE 1% TOP CREAM 50 GM JAR TP SCH (10:13)
[2015-08-28] MEDS: MULTIVITAMINS THERAPEUTIC GT SCH (10:13)
--- NOTE | 2015-08-28 11:17 | PN ---
Progress Note, Physician History of Present Illness: PULMONARY NO CHANGE POORLY RESPONSIVE ON VENT SUPPORT AC MODE, REMAINS FEBRILE - Current Medication List Current Medications: Active Medications Acetaminophen (Tylenol Oral Solution -) 650 mg GT Q6H PRN PRN Reason: FEVER Last Admin: 08/27/15 16:00 Dose: 650 mg Amino Acids (Prostat Sugar-Free Packet -) 30 ml GT BID [facility] Last Admin: 08/28/15 10:12 Dose: 30 ml Amlodipine Besylate (Norvasc -) 10 mg GT DAILY [facility] Last Admin: 08/28/15 10:11 Dose: 10 mg Chlorhexidine Gluconate (Peridex -) 15 ml MM BID [facility] Last Admin: 08/28/15 10:11 Dose: 15 ml Collagenase (Santyl -) 1 applic TP DAILY [facility] Last Admin: 08/28/15 10:12 Dose: 1 applic Enoxaparin Sodium (Lovenox -) 40 mg SQ DAILY [facility] Last Admin: 08/28/15 10:11 Dose: 40 mg Ibuprofen (Motrin Oral Suspension -) 200 mg PO Q6H PRN PRN Reason: FEVER Last Admin: 08/28/15 06:48 Dose: 200 mg Insulin Aspart (Novolog Vial) 5 units SQ Q6HPO [facility] Last Admin: 08/28/15 06:49 Dose: 5 units Insulin Aspart (Novolog Vial) 0 units SQ Q6HPO [facility] PRN Reason: Protocol Last Admin: 08/28/15 06:49 Dose: 2 units Insulin Detemir (Levemir Vial) 28 units SQ HS [facility] Last Admin: 08/27/15 22:25 Dose: 28 units Lisinopril (Prinivil -) 40 mg GT DAILY [facility] Last Admin: 08/28/15 10:11 Dose: 40 mg Metoprolol Tartrate (Lopressor Injection -) 5 mg IVPB Q6H PRN PRN Reason: HYPERTENSION Metoprolol Tartrate (Lopressor -) 125 mg GT BID [facility] Last Admin: 08/28/15 10:10 Dose: 125 mg Multivitamins (Thera-Plus -) 5 ml GT DAILY [facility] Last Admin: 08/28/15 10:13 Dose: 5 ml Mupirocin (Bactroban 2% Ointment -) 1 applic TP BID [facility] Last Admin: 08/28/15 10:09 Dose: 1 applic Ondansetron HCl (Zofran Injection -) 4 mg IVPB Q6H PRN PRN Reason: NAUSEA Pantoprazole Sodium (Protonix Packets For Oral Suspension -) 40 mg GT DAILY [facility] Last Admin: 08/28/15 10:12 Dose: 40 mg Silver Sulfadiazine (Silvadene -) 1 applic TP DAILY [facility] Last Admin: 08/28/15 10:13 Dose: 1 applic Vancomycin HCl (Vancomycin Oral Solution) 250 mg PO Q6HPO [facility] Last Admin: 08/28/15 06:48 Dose: 250 mg - Objective Vital Signs: Vital Signs Temperature 101.9 F H 08/28/15 06:00 Pulse Rate 104 H 08/28/15 10:00 Respiratory Rate 14 08/28/15 10:00 Blood Pressure 156/80 08/28/15 10:00 O2 Sat by Pulse Oximetry (%) 99 08/27/15 22:00 Constitutional: Yes: Calm, Thin Eyes: Yes: WNL HENT: Yes: WNL Neck: Yes: WNL Cardiovascular: Yes: Regular Rate and Rhythm, S1, S2 Respiratory: Yes: Rhonchi (FEW RHONCHI) Gastrointestinal: Yes: Normal Bowel Sounds, Soft Extremities: Yes: WNL Edema: No Labs: CBC, BMP 08/28/15 07:20 08/28/15 07:20 INR, PTT INR 1.30 (0.86-1.14) H 07/29/15 10:00 Problem List - Problems (1) Anoxic brain damage Code: G93.1 (2) Lower GI bleed Code: K92.2 (3) 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 - enteral feeds - DVT/GI prophylaxis - Prognosis poor - [place] placement vent facility DR HENRY
--- NOTE | 2015-08-28 11:45 | PN ---
Progress Note (short form) - Note Progress Note: SUBJECTIVE: Patient seen and examined. OBJECTIVE Vital Signs Period Temp Pulse Resp BP Sys/Santiago Pulse Ox Last 24 Hr 101.5 F-101.9 F 20-104 13-84 134-162/69-80 98-99 GENERAL: In no apparent distress. HEAD: Normal with no signs of trauma. EYES: Pupils equal, round and reactive to light, sclera anicteric, conjunctiva clear. ENT: Ears normal, nares patent. Dry mucous membranes. NECK: No lymphadenopathy, JVD, or masses. LUNGS: Mechanical breath sounds. No wheezes, rhonchi or crackles. HEART: Regular rate and rhythm, normal S1 and S2 without murmur, rub or gallop. ABDOMEN: Soft, nontender, normoactive bowel sounds. No guarding, no rebound. No masses. EXTREMITIES: 2+ edema RUE and RLE; 2+pulses, warm, well-perfused. NEUROLOGICAL: Eyes open, not tracking. No purposeful movement. Right-sided facial droop. Laboratory Results - last 24 hr 08/27/15 08/27/15 08/28/15 11:35 17:09 00:40 WBC RBC Hgb Hct MCV MCHC RDW Plt Count MPV Neutrophils % Lymphocytes % Monocytes % Eosinophils % Basophils % Sodium Potassium Chloride Carbon Dioxide Anion Gap BUN Creatinine Creat Clearance w eGFR POC Glucometer 198 182 211 Random Glucose Calcium Magnesium Total Bilirubin AST ALT Alkaline Phosphatase Total Protein Albumin 08/28/15 08/28/15 06:23 07:20 WBC 13.8 H RBC 3.04 L Hgb 8.9 L Hct 27.5 L MCV 90.5 MCHC 32.4 RDW 16.4 H Plt Count 173 MPV 9.6 Neutrophils % 79.0 Lymphocytes % 13.0 Monocytes % 4.8 Eosinophils % 2.5 Basophils % 0.7 Sodium 148 H Potassium 3.5 Chloride 111 H Carbon Dioxide 31 Anion Gap 6 L BUN 21 H Creatinine 0.6 Creat Clearance w eGFR > 60 POC Glucometer 164 Random Glucose 140 H D Calcium 9.4 Magnesium 2.0 Total Bilirubin 0.3 D AST 23 ALT 37 Alkaline Phosphatase 111 Total Protein 6.9 Albumin 2.7 L Current Medications Generic Name Dose Route Start Last Admin Trade Name Freq PRN Reason Stop Dose Admin Acetaminophen 650 mg 07/31/15 15:42 08/27/15 16:00 Tylenol Oral Solution - GT 650 mg Q6H PRN Administration FEVER Amino Acids 30 ml 08/11/15 22:00 08/28/15 10:12 Prostat Sugar-Free Packet - GT 30 ml BID [facility]WAKU Administration Amlodipine Besylate 10 mg 08/01/15 10:00 08/28/15 10:11 Norvasc - GT 10 mg DAILY [facility]U Administration Chlorhexidine Gluconate 15 ml 07/28/15 22:00 08/28/15 10:11 Peridex - MM 15 ml BID KWAKU Administration Collagenase 1 applic 08/12/15 10:00 08/28/15 10:12 Santyl - TP 1 applic DAILY [facility]AKU Administration Enoxaparin Sodium 40 mg 08/27/15 16:15 08/28/15 10:11 Lovenox - SQ 40 mg DAILY [facility]U Administration Ibuprofen 200 mg 08/13/15 14:55 08/28/15 06:48 Motrin Oral Suspension - PO 200 mg Q6H PRN Administration FEVER Insulin Aspart 5 units 08/21/15 09:35 08/28/15 06:49 Novolog Vial SQ 5 units Q6HPO K[facility]AKU Administration Insulin Aspart 0 units 08/21/15 18:00 08/28/15 06:49 Novolog Vial SQ 2 units Q6HPO K[facility]U Administration Protocol Insulin Detemir 28 units 08/21/15 09:35 08/27/15 22:25 Levemir Vial SQ 28 units HS [facility]U Administration Lisinopril 40 mg 08/20/15 10:00 08/28/15 10:11 Prinivil - GT 40 mg DAILY [facility]U Administration Metoprolol Tartrate 5 mg 07/28/15 19:09 Lopressor Injection - IVPB Q6H PRN HYPERTENSION Metoprolol Tartrate 125 mg 08/21/15 09:35 08/28/15 10:10 Lopressor - GT 125 mg BID K[facility]AKU Administration Multivitamins 5 ml 07/31/15 15:38 08/28/15 10:13 Thera-Plus - GT 5 ml DAILY [facility]U Administration Mupirocin 1 applic 08/11/15 22:00 08/28/15 10:09 Bactroban 2% Ointment - TP 1 applic BID [facility]U Administration Ondansetron HCl 4 mg 07/28/15 19:09 Zofran Injection - IVPB Q6H PRN NAUSEA Pantoprazole Sodium 40 mg 08/01/15 10:00 08/28/15 10:12 Protonix Packets For Oral Suspension - GT 40 mg DAILY [facility]U Administration Silver Sulfadiazine 1 applic 08/18/15 11:45 08/28/15 10:13 Silvadene - TP 1 applic DAILY [facility]U Administration Vancomycin HCl 250 mg 08/26/15 18:00 08/28/15 06:48 Vancomycin Oral Solution PO 250 mg Q6HPO K[facility]AKU Administration A/P: This is hospital day #62 for this 75 year-old male with HTN, IDDM, inguinal hernia, and diverticular bleed s/p R hemicolectomy, 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 Anoxic brain injury s/p brainstem CVA Hypertension --continue lisinopril, metoprolol, amlodipine Respiratory failure secondary to anoxic brain injury CPAP trial --s/p trach, vent dependent, no potential for weaning --trial of CPAP today x 3 hours --vent settings: AC 10/500/30/5 s/p diverticular bleed, right hemicolectomy --s/p PEG --tolerating feeds Hypernatremia --improved to 148 (<--150); continue free water via feeding tube pump @40cc' s per hour C. difficile colitis, ruled out --negative, d/c PO vanco IDDM --Levemir --Novolog standing and sliding scale --fingersticks Multiple pressure ulcers -- Stage III sacrum, Stage II left ear -- optifoam, Allevyn, Accuair mattress -- frequent turning and positioning FLUIDS/ELECTROLYTES/NUTRITION FLUIDS: 40cc free water hourly via tube feeds pump ELECTROLYTES: replete as indicated NUTRITION: Glucerna tube feeds at goal DVT Prophylaxis --SCDs, lovenox DISPO: Placement issue due to lack of any insurance. Advised case management is working on this. Needs transfer to long-term care facility. DNR.
[2015-08-28] MEDS: ACETAMINOPHEN 650 MG/20.3 ML ORAL SOLUTION (CUPS) GT PRN ×2 (12:04→22:05)
[2015-08-28] MEDS: INSULIN DETEMIR 100 UNITS/ML MDV SQ SCH (22:02)
[2015-08-29] MEDS: INSULIN (NOVOLOG) ASPART 100 UNITS/ML 10ML VIAL SQ SCH ×8 (00:04→17:07)
[2015-08-29 07:49] LABS: BASOPHIL 0.5 % (0-2.0); EOSINOPHIL 2.5 % (0-4.5); MCH 29.2 pg (25.7-33.7); MCHC 32.5 g/dl (32.0-35.9); MEAN CELL VOLUME 89.9 fl (80-96); MEAN PLT VOLUME 9.3 fl (7.5-11.1); PLATELET COUNT 189 K/MM3 (134-434); RDW 16.5 % (11.9-15.9)
[2015-08-29 08:15] LABS: ALBUMIN 2.7 g/dl (3.4-5.0); ANION GAP 10 (8-16); BILIRUBIN,TOTAL 0.3 mg/dL (0.2-1.0); CALCIUM 9.1 mg/dL (8.5-10.1); CO2 29 mmol/L (21-32); CREATININE 0.5 mg/dL (0.6-1.3); GLUCOSE,RANDOM 191 mg/dL (74-106); SGOT/AST 21 U/L (15-37); SGPT/ALT 38 U/L (12-78); TOT PROT 6.7 g/dl (6.4-8.2)
[2015-08-29 08:16] LABS: ALK PHOS 114 U/L (45-117)
[2015-08-29] MEDS: ACETAMINOPHEN 650 MG/20.3 ML ORAL SOLUTION (CUPS) GT PRN ×2 (11:09→18:39)
--- NOTE | 2015-08-29 11:38 | PN ---
Progress Note, Physician History of Present Illness: pulmonary no change unresponsive on vent support ac mode. - Current Medication List Current Medications: Active Medications Acetaminophen (Tylenol Oral Solution -) 650 mg GT Q6H PRN PRN Reason: FEVER Last Admin: 08/29/15 11:09 Dose: 650 mg Amino Acids (Prostat Sugar-Free Packet -) 30 ml GT BID [facility] Last Admin: 08/28/15 22:04 Dose: 30 ml Amlodipine Besylate (Norvasc -) 10 mg GT DAILY [facility] Last Admin: 08/28/15 10:11 Dose: 10 mg Chlorhexidine Gluconate (Peridex -) 15 ml MM BID [facility] Last Admin: 08/28/15 22:04 Dose: 15 ml Collagenase (Santyl -) 1 applic TP DAILY [facility] Last Admin: 08/28/15 10:12 Dose: 1 applic Enoxaparin Sodium (Lovenox -) 40 mg SQ DAILY [facility] Last Admin: 08/28/15 10:11 Dose: 40 mg Ibuprofen (Motrin Oral Suspension -) 200 mg PO Q6H PRN PRN Reason: FEVER Last Admin: 08/28/15 06:48 Dose: 200 mg Insulin Aspart (Novolog Vial) 5 units SQ Q6HPO [facility] Last Admin: 08/29/15 06:28 Dose: 5 units Insulin Aspart (Novolog Vial) 0 units SQ Q6HPO [facility] PRN Reason: Protocol Last Admin: 08/29/15 06:28 Dose: 2 units Insulin Detemir (Levemir Vial) 28 units SQ HS [facility] Last Admin: 08/28/15 22:02 Dose: 28 units Lisinopril (Prinivil -) 40 mg GT DAILY [facility] Last Admin: 08/28/15 10:11 Dose: 40 mg Metoprolol Tartrate (Lopressor Injection -) 5 mg IVPB Q6H PRN PRN Reason: HYPERTENSION Metoprolol Tartrate (Lopressor -) 125 mg GT BID [facility] Last Admin: 08/28/15 22:04 Dose: 125 mg Multivitamins (Thera-Plus -) 5 ml GT DAILY [facility] Last Admin: 08/28/15 10:13 Dose: 5 ml Mupirocin (Bactroban 2% Ointment -) 1 applic TP BID [facility] Last Admin: 08/28/15 22:05 Dose: 1 applic Ondansetron HCl (Zofran Injection -) 4 mg IVPB Q6H PRN PRN Reason: NAUSEA Pantoprazole Sodium (Protonix Packets For Oral Suspension -) 40 mg GT DAILY [facility] Last Admin: 08/28/15 10:12 Dose: 40 mg Silver Sulfadiazine (Silvadene -) 1 applic TP DAILY [facility] Last Admin: 08/28/15 10:13 Dose: 1 applic - Objective Vital Signs: Vital Signs Temperature 99.7 F H 08/29/15 05:00 Pulse Rate 93 H 08/29/15 05:00 Respiratory Rate 08/29/15 10:55 Blood Pressure 149/84 08/29/15 05:00 O2 Sat by Pulse Oximetry (%) 98 08/28/15 10:00 Constitutional: Yes: Thin, Other (unresponsive) Eyes: Yes: WNL HENT: Yes: WNL Neck: Yes: Supple (trach) Cardiovascular: Yes: S1, S2 Respiratory: Yes: Rhonchi (few rhonchi) Gastrointestinal: Yes: Normal Bowel Sounds, Soft Extremities: Yes: WNL Edema: No Labs: CBC, BMP 08/29/15 06:00 08/29/15 06:00 INR, PTT INR 1.30 (0.86-1.14) H 07/29/15 10:00 Problem List - Problems (1) Anoxic brain damage Code: G93.1 (2) Lower GI bleed Code: K92.2 (3) 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 - enteral feeds - DVT/GI prophylaxis - Prognosis poor - NH placement vent facility DR HENRY
[2015-08-29] MEDS: LISINOPRIL 20 MG TABLET (FP) GT SCH (11:55)
[2015-08-29] MEDS: amLODIPine BESYLATE 10 MG TABLET (FP) GT SCH (11:55)
[2015-08-29] MEDS: ENOXAPARIN NA (PORCINE) 40 MG/0.4 ML DISP.SYRIN SQ SCH (11:56)
[2015-08-29] MEDS: CHLORHEXIDINE GLUCONATE 0.12% 15ML CUP MM SCH ×2 (11:56→22:28)
[2015-08-29] MEDS: METOPROLOL TARTRATE 50 MG TABLET (FP) GT SCH ×2 (11:56→22:28)
[2015-08-29] MEDS: AMINO ACIDS/PROTEIN HYDROLYS SUGAR-FREE 30 ML PACKET GT SCH ×2 (11:57→22:28)
[2015-08-29] MEDS: PANTOPRAZOLE SOD 40 MG SUSPENSION PACKET GT SCH (11:58)
[2015-08-29] MEDS: MULTIVITAMINS THERAPEUTIC GT SCH (11:58)
[2015-08-29] MEDS: SILVER SULFADIAZINE 1% TOP CREAM 50 GM JAR TP SCH (12:06)
[2015-08-29] MEDS: COLLAGENASE CLOSTRIDIUM HIST. 30 GRAMS TUBE TP SCH (12:07)
[2015-08-29] MEDS: MUPIROCIN 2% TOPICAL OINTMENT 22 GM TUBE TP SCH ×2 (12:08→22:26)
--- NOTE | 2015-08-29 16:57 | PN ---
Progress Note (short form) - Note Progress Note: SUBJECTIVE: Patient seen and examined. No s/s of pain. OBJECTIVE Vital Signs Period Temp Pulse Resp BP Sys/Santiago Pulse Ox Last 24 Hr 98.9 F-101.8 F 77-106 15-20 125-149/65-93 100-100 GENERAL: In no apparent distress. HEAD: Normal with no signs of trauma. EYES: Pupils equal, round and reactive to light, sclera anicteric, conjunctiva clear. ENT: Ears normal, nares patent. Dry mucous membranes. NECK: No lymphadenopathy, JVD, or masses. LUNGS: Mechanical breath sounds. No wheezes, rhonchi or crackles. HEART: Regular rate and rhythm, normal S1 and S2 without murmur, rub or gallop. ABDOMEN: Soft, nontender, normoactive bowel sounds. No guarding, no rebound. No masses. EXTREMITIES: 2+ edema RUE and RLE; 2+pulses, warm, well-perfused. NEUROLOGICAL: Opens eyes to physical stimulus. No purposeful movement. Right- sided facial droop. Laboratory Results - last 24 hr 08/28/15 08/28/15 08/28/15 07:20 17:41 21:53 WBC RBC Hgb Hct MCV MCHC RDW Plt Count MPV Neutrophils % Lymphocytes % Monocytes % Eosinophils % Basophils % Sodium Potassium Chloride Carbon Dioxide Anion Gap BUN Creatinine Creat Clearance w eGFR POC Glucometer 157 160 Random Glucose Calcium Phosphorus 3.7 Magnesium Total Bilirubin AST ALT Alkaline Phosphatase Total Protein Albumin 08/29/15 08/29/15 08/29/15 00:01 05:28 05:32 WBC RBC Hgb Hct MCV MCHC RDW Plt Count MPV Neutrophils % Lymphocytes % Monocytes % Eosinophils % Basophils % Sodium Potassium Chloride Carbon Dioxide Anion Gap BUN Creatinine Creat Clearance w eGFR POC Glucometer 219 179 66 Random Glucose Calcium Phosphorus Magnesium Total Bilirubin AST ALT Alkaline Phosphatase Total Protein Albumin 08/29/15 08/29/15 06:00 11:00 WBC 15.0 H RBC 2.98 L Hgb 8.7 L Hct 26.8 L MCV 89.9 MCHC 32.5 RDW 16.5 H Plt Count 189 MPV 9.3 Neutrophils % 75.0 Lymphocytes % 17.1 D Monocytes % 4.9 Eosinophils % 2.5 Basophils % 0.5 Sodium 149 H Potassium 3.3 L Chloride 110 H Carbon Dioxide 29 Anion Gap 10 BUN 22 H Creatinine 0.5 L Creat Clearance w eGFR > 60 POC Glucometer 199 Random Glucose 191 H D Calcium 9.1 Phosphorus 4.0 Magnesium 2.0 Total Bilirubin 0.3 AST 21 ALT 38 Alkaline Phosphatase 114 Total Protein 6.7 Albumin 2.7 L Current Medications Generic Name Dose Route Start Last Admin Trade Name Freq PRN Reason Stop Dose Admin Acetaminophen 650 mg 07/31/15 15:42 08/29/15 11:09 Tylenol Oral Solution - GT 650 mg Q6H PRN Administration FEVER Amino Acids 30 ml 08/11/15 22:00 08/29/15 11:57 Prostat Sugar-Free Packet - GT 30 ml BID KWAKU Administration Amlodipine Besylate 10 mg 08/01/15 10:00 08/29/15 11:55 Norvasc - GT 10 mg DAILY [facility]U Administration Chlorhexidine Gluconate 15 ml 07/28/15 22:00 08/29/15 11:56 Peridex - MM 15 ml BID KWAKU Administration Collagenase 1 applic 08/12/15 10:00 08/29/15 12:07 Santyl - TP 1 applic DAILY [facility] Administration Enoxaparin Sodium 40 mg 08/27/15 16:15 08/29/15 11:56 Lovenox - SQ 40 mg DAILY [facility] Administration Ibuprofen 200 mg 08/13/15 14:55 08/28/15 06:48 Motrin Oral Suspension - PO 200 mg Q6H PRN Administration FEVER Insulin Aspart 5 units 08/21/15 09:35 08/29/15 12:06 Novolog Vial SQ 5 units Q6HPO [facility]AKU Administration Insulin Aspart 0 units 08/21/15 18:00 08/29/15 12:06 Novolog Vial SQ 2 units Q6HPO [facility]AKU Administration Protocol Insulin Detemir 28 units 08/21/15 09:35 08/28/15 22:02 Levemir Vial SQ 28 units HS [facility]AKU Administration Lisinopril 40 mg 08/20/15 10:00 08/29/15 11:55 Prinivil - GT 40 mg DAILY [facility] Administration Metoprolol Tartrate 5 mg 07/28/15 19:09 Lopressor Injection - IVPB Q6H PRN HYPERTENSION Metoprolol Tartrate 125 mg 08/21/15 09:35 08/29/15 11:56 Lopressor - GT 125 mg BID KWAKU Administration Multivitamins 5 ml 07/31/15 15:38 08/29/15 11:58 Thera-Plus - GT 5 ml DAILY [facility] Administration Mupirocin 1 applic 08/11/15 22:00 08/29/15 12:08 Bactroban 2% Ointment - TP 1 applic BID [facility]U Administration Ondansetron HCl 4 mg 07/28/15 19:09 Zofran Injection - IVPB Q6H PRN NAUSEA Pantoprazole Sodium 40 mg 08/01/15 10:00 08/29/15 11:58 Protonix Packets For Oral Suspension - GT 40 mg DAILY [facility] Administration Silver Sulfadiazine 1 applic 08/18/15 11:45 08/29/15 12:06 Silvadene - TP 1 applic DAILY [facility] Administration A/P: This is hospital day #63 for this 75 year-old male with HTN, IDDM, inguinal hernia, and diverticular bleed s/p R hemicolectomy, 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 Anoxic brain injury s/p brainstem CVA Hypertension --continue lisinopril, metoprolol, amlodipine Respiratory failure secondary to anoxic brain injury CPAP trial --s/p trach, vent dependent, daily pressure support trials --spoke to respiratory, no pressure support trial today due to tachypnea --vent settings: AC 10/500/30/5 s/p diverticular bleed, right hemicolectomy --s/p PEG --tolerating feeds Hypernatremia --Na 149, increase free water via feeding tube pump to 45cc's per hour C. difficile colitis, ruled out IDDM --Levemir --Novolog standing and sliding scale --fingersticks Multiple pressure ulcers -- Stage III sacrum, Stage II left ear -- optifoam, Allevyn, Accuair mattress -- frequent turning and positioning FLUIDS/ELECTROLYTES/NUTRITION FLUIDS: 45cc free water hourly via tube feeds pump ELECTROLYTES: replete as indicated NUTRITION: Glucerna tube feeds at goal DVT Prophylaxis --SCDs, lovenox DISPO: Placement issue due to lack of any insurance. Advised case management is working on this. Needs transfer to long-term care facility. DNR.
[2015-08-29] MEDS: INSULIN DETEMIR 100 UNITS/ML MDV SQ SCH (23:05)
[2015-08-30] MEDS: ACETAMINOPHEN 650 MG/20.3 ML ORAL SOLUTION (CUPS) GT PRN (06:17)
[2015-08-30] MEDS: INSULIN (NOVOLOG) ASPART 100 UNITS/ML 10ML VIAL SQ SCH ×10 (06:20→23:00)
[2015-08-30] MEDS: MULTIVITAMINS THERAPEUTIC GT SCH (10:01)
[2015-08-30] MEDS: PANTOPRAZOLE SOD 40 MG SUSPENSION PACKET GT SCH (10:01)
[2015-08-30] MEDS: amLODIPine BESYLATE 10 MG TABLET (FP) GT SCH (10:01)
[2015-08-30] MEDS: ENOXAPARIN NA (PORCINE) 40 MG/0.4 ML DISP.SYRIN SQ SCH (10:01)
[2015-08-30] MEDS: LISINOPRIL 20 MG TABLET (FP) GT SCH (10:01)
[2015-08-30] MEDS: CHLORHEXIDINE GLUCONATE 0.12% 15ML CUP MM SCH ×2 (10:02→22:33)
[2015-08-30] MEDS: AMINO ACIDS/PROTEIN HYDROLYS SUGAR-FREE 30 ML PACKET GT SCH ×2 (10:02→22:31)
[2015-08-30] MEDS: SILVER SULFADIAZINE 1% TOP CREAM 50 GM JAR TP SCH (10:03)
[2015-08-30] MEDS: COLLAGENASE CLOSTRIDIUM HIST. 30 GRAMS TUBE TP SCH (10:03)
[2015-08-30] MEDS: MUPIROCIN 2% TOPICAL OINTMENT 22 GM TUBE TP SCH ×2 (10:05→22:33)
[2015-08-30] MEDS: METOPROLOL TARTRATE 50 MG TABLET (FP) GT SCH ×2 (10:05→22:32)
--- NOTE | 2015-08-30 11:57 | PN ---
Progress Note (short form) - Note Progress Note: PULMONARY Remains vented, poorly responsive. Febrile overnight. Last Vital Signs Temp Pulse Resp BP Pulse Ox 99.0 F 104 H 15 158/91 98 08/30/15 09:26 08/30/15 10:05 08/30/15 10:00 08/30/15 09:26 08/30/15 10:05 Gen: vented, poorly responsive Heart: RRR Lung: decreased breath sounds at the bases Abd: soft, nontender, dressing dry Ext: no edema CBC, BMP 08/29/15 06:00 08/29/15 06:00 Active Medications Acetaminophen (Tylenol Oral Solution -) 650 mg GT Q6H PRN PRN Reason: FEVER Last Admin: 08/30/15 06:17 Dose: 650 mg Amino Acids (Prostat Sugar-Free Packet -) 30 ml GT BID [facility] Last Admin: 08/30/15 10:02 Dose: 30 ml Amlodipine Besylate (Norvasc -) 10 mg GT DAILY [facility] Last Admin: 08/30/15 10:01 Dose: 10 mg Chlorhexidine Gluconate (Peridex -) 15 ml MM BID [facility] Last Admin: 08/30/15 10:02 Dose: 15 ml Collagenase (Santyl -) 1 applic TP DAILY [facility] Last Admin: 08/30/15 10:03 Dose: 1 applic Enoxaparin Sodium (Lovenox -) 40 mg SQ DAILY [facility] Last Admin: 08/30/15 10:01 Dose: 40 mg Ibuprofen (Motrin Oral Suspension -) 200 mg PO Q6H PRN PRN Reason: FEVER Last Admin: 08/28/15 06:48 Dose: 200 mg Insulin Aspart (Novolog Vial) 5 units SQ Q6HPO [facility] Last Admin: 08/30/15 11:22 Dose: 5 units Insulin Aspart (Novolog Vial) 0 units SQ Q6HPO [facility] PRN Reason: Protocol Last Admin: 08/30/15 11:23 Dose: 2 units Insulin Detemir (Levemir Vial) 28 units SQ HS [facility] Last Admin: 08/29/15 23:05 Dose: 28 units Lisinopril (Prinivil -) 40 mg GT DAILY [facility] Last Admin: 08/30/15 10:01 Dose: 40 mg Metoprolol Tartrate (Lopressor Injection -) 5 mg IVPB Q6H PRN PRN Reason: HYPERTENSION Metoprolol Tartrate (Lopressor -) 125 mg GT BID [facility] Last Admin: 08/30/15 10:05 Dose: 125 mg Multivitamins (Thera-Plus -) 5 ml GT DAILY [facility] Last Admin: 08/30/15 10:01 Dose: 5 ml Mupirocin (Bactroban 2% Ointment -) 1 applic TP BID [facility] Last Admin: 08/30/15 10:05 Dose: 1 applic Ondansetron HCl (Zofran Injection -) 4 mg IVPB Q6H PRN PRN Reason: NAUSEA Pantoprazole Sodium (Protonix Packets For Oral Suspension -) 40 mg GT DAILY [facility] Last Admin: 08/30/15 10:01 Dose: 40 mg Silver Sulfadiazine (Silvadene -) 1 applic TP DAILY [facility] Last Admin: 08/30/15 10:03 Dose: 1 applic A/P Acute Respiratory Failure s/p Tracheostomy Acute CVA/Anoxic Brain Injury Acute Lower Diverticular GI Bleed Acute Blood Loss Anemia s/p Pneumonia HTN DM CKD + C Diff Ag Fever - antibiotics per ID - enteral feeds - DVT/GI prophylaxis - poor prognosis for meaningful recovery - spontaneous breathing trials as tolerated but pt poor candidate for weaning due to poor mental status - will need vent placement
--- NOTE | 2015-08-30 18:42 | PN ---
Progress Note (short form) - Note Progress Note: SUBJECTIVE: Patient seen and examined. No s/s of pain. OBJECTIVE Vital Signs Period Temp Pulse Resp BP Sys/Santiago Pulse Ox Last 24 Hr 99.0 F-102.1 F 96-107 12-18 155-158/83-91 98-99 GENERAL: In no apparent distress. HEAD: Normal with no signs of trauma. EYES: Pupils equal, round and reactive to light, sclera anicteric, conjunctiva clear. ENT: Ears normal, nares patent. Dry mucous membranes. NECK: No lymphadenopathy, JVD, or masses. LUNGS: Mechanical breath sounds. No wheezes, rhonchi or crackles. HEART: Regular rate and rhythm, normal S1 and S2 without murmur, rub or gallop. ABDOMEN: Soft, nontender, normoactive bowel sounds. No guarding, no rebound. No masses. EXTREMITIES: 2+ edema RUE and RLE; 2+pulses, warm, well-perfused. NEUROLOGICAL: Opens eyes to physical stimulus. No purposeful movement. Right- sided facial droop. CBCD WBC 15.0 K/mm3 (4.0-10.0) H 08/29/15 06:00 RBC 2.98 M/mm3 (4.00-5.60) L 08/29/15 06:00 Hgb 8.7 GM/dL (11.7-16.9) L 08/29/15 06:00 Hct 26.8 % (35.4-49) L 08/29/15 06:00 MCV 89.9 fl (80-96) 08/29/15 06:00 MCHC 32.5 g/dl (32.0-35.9) 08/29/15 06:00 RDW 16.5 % (11.9-15.9) H 08/29/15 06:00 Plt Count 189 K/MM3 (134-434) 08/29/15 06:00 MPV 9.3 fl (7.5-11.1) 08/29/15 06:00 CMP Sodium 149 mmol/L (136-145) H 08/29/15 06:00 Potassium 3.3 mmol/L (3.5-5.1) L 08/29/15 06:00 Chloride 110 mmol/L (98-107) H 08/29/15 06:00 Carbon Dioxide 29 mmol/L (21-32) 08/29/15 06:00 Anion Gap 10 (8-16) 08/29/15 06:00 BUN 22 mg/dL (7-18) H 08/29/15 06:00 Creatinine 0.5 mg/dL (0.6-1.3) L 08/29/15 06:00 Creat Clearance w eGFR > 60 (>60) 08/29/15 06:00 Calcium 9.1 mg/dL (8.5-10.1) 08/29/15 06:00 Total Bilirubin 0.3 mg/dL (0.2-1.0) 08/29/15 06:00 AST 21 U/L (15-37) 08/29/15 06:00 ALT 38 U/L (12-78) 08/29/15 06:00 Alkaline Phosphatase 114 U/L (45-117) 08/29/15 06:00 Total Protein 6.7 g/dl (6.4-8.2) 08/29/15 06:00 Albumin 2.7 g/dl (3.4-5.0) L 08/29/15 06:00 Current Medications Generic Name Dose Route Start Last Admin Trade Name Freq PRN Reason Stop Dose Admin Acetaminophen 650 mg 07/31/15 15:42 08/30/15 06:17 Tylenol Oral Solution - GT 650 mg Q6H PRN Administration FEVER Amino Acids 30 ml 08/11/15 22:00 08/30/15 10:02 Prostat Sugar-Free Packet - GT 30 ml BID [facility]U Administration Amlodipine Besylate 10 mg 08/01/15 10:00 08/30/15 10:01 Norvasc - GT 10 mg DAILY [facility] Administration Chlorhexidine Gluconate 15 ml 07/28/15 22:00 08/30/15 10:02 Peridex - MM 15 ml BID [facility] Administration Collagenase 1 applic 08/12/15 10:00 08/30/15 10:03 Santyl - TP 1 applic DAILY [facility] Administration Enoxaparin Sodium 40 mg 08/27/15 16:15 08/30/15 10:01 Lovenox - SQ 40 mg DAILY [facility] Administration Ibuprofen 200 mg 08/13/15 14:55 08/28/15 06:48 Motrin Oral Suspension - PO 200 mg Q6H PRN Administration FEVER Insulin Aspart 5 units 08/21/15 09:35 08/30/15 17:51 Novolog Vial SQ 5 units Q6HPO [facility]U Administration Insulin Aspart 0 units 08/21/15 18:00 08/30/15 17:51 Novolog Vial SQ 4 units Q6HPO [facility] Administration Protocol Insulin Detemir 28 units 08/21/15 09:35 08/29/15 23:05 Levemir Vial SQ 28 units HS [facility] Administration Lisinopril 40 mg 08/20/15 10:00 08/30/15 10:01 Prinivil - GT 40 mg DAILY [facility] Administration Metoprolol Tartrate 5 mg 07/28/15 19:09 Lopressor Injection - IVPB Q6H PRN HYPERTENSION Metoprolol Tartrate 125 mg 08/21/15 09:35 08/30/15 10:05 Lopressor - GT 125 mg BID [facility] Administration Multivitamins 5 ml 07/31/15 15:38 08/30/15 10:01 Thera-Plus - GT 5 ml DAILY [facility] Administration Mupirocin 1 applic 08/11/15 22:00 08/30/15 10:05 Bactroban 2% Ointment - TP 1 applic BID [facility] Administration Ondansetron HCl 4 mg 07/28/15 19:09 Zofran Injection - IVPB Q6H PRN NAUSEA Pantoprazole Sodium 40 mg 08/01/15 10:00 08/30/15 10:01 Protonix Packets For Oral Suspension - GT 40 mg DAILY [facility] Administration Silver Sulfadiazine 1 applic 08/18/15 11:45 08/30/15 10:03 Silvadene - TP 1 applic DAILY [facility] Administration A/P: This is hospital day #64 for this 75 year-old male with HTN, IDDM, inguinal hernia, and diverticular bleed s/p R hemicolectomy, 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 Anoxic brain injury s/p brainstem CVA Hypertension --continue lisinopril, metoprolol, amlodipine Respiratory failure secondary to anoxic brain injury CPAP trial --s/p trach, vent dependent, daily pressure support trials --spoke to respiratory, no pressure support trial today due to tachypnea --vent settings: AC 10/500/30/5 s/p diverticular bleed, right hemicolectomy --s/p PEG --tolerating feeds Hypernatremia --Na 149, free water via feeding tube pump @ 45cc's per hour; check Na level in am C. difficile colitis, ruled out IDDM --Levemir --Novolog standing and sliding scale --fingersticks Multiple pressure ulcers -- Stage III sacrum, Stage II left ear -- optifoam, Allevyn, Accuair mattress -- frequent turning and positioning FLUIDS/ELECTROLYTES/NUTRITION FLUIDS: 45cc free water hourly via tube feeds pump ELECTROLYTES: replete as indicated NUTRITION: Glucerna tube feeds at goal DVT Prophylaxis --SCDs, lovenox DISPO: Placement issue due to lack of any insurance. Advised case management is working on this. Needs transfer to long-term care facility. DNR.
[2015-08-30] MEDS: INSULIN DETEMIR 100 UNITS/ML MDV SQ SCH (22:53)
[2015-08-31] MEDS: INSULIN (NOVOLOG) ASPART 100 UNITS/ML 10ML VIAL SQ SCH ×6 (06:48→18:02)
--- NOTE | 2015-08-31 09:33 | PN ---
Progress Note (short form) - Note Progress Note: Subjective: The patient was seen and examined at the bedside, trach, opening eyes to verbal stimuli, not following commands Current Medications Generic Name Dose Route Start Last Admin Trade Name Freq PRN Reason Stop Dose Admin Acetaminophen 650 mg 07/31/15 15:42 08/30/15 06:17 Tylenol Oral Solution - GT 650 mg Q6H PRN Administration FEVER Amino Acids 30 ml 08/11/15 22:00 08/30/15 22:31 Prostat Sugar-Free Packet - GT 30 ml BID KWAKU Administration Amlodipine Besylate 10 mg 08/01/15 10:00 08/30/15 10:01 Norvasc - GT 10 mg DAILY KWAKU Administration Chlorhexidine Gluconate 15 ml 07/28/15 22:00 08/30/15 22:33 Peridex - MM 15 ml BID KWAKU Administration Collagenase 1 applic 08/12/15 10:00 08/30/15 10:03 Santyl - TP 1 applic DAILY KWAKU Administration Enoxaparin Sodium 40 mg 08/27/15 16:15 08/30/15 10:01 Lovenox - SQ 40 mg DAILY KWAKU Administration Ibuprofen 200 mg 08/13/15 14:55 08/28/15 06:48 Motrin Oral Suspension - PO 200 mg Q6H PRN Administration FEVER Insulin Aspart 5 units 08/21/15 09:35 08/31/15 06:48 Novolog Vial SQ 5 units Q6HPO KWAKU Administration Insulin Aspart 0 units 08/21/15 18:00 08/31/15 06:49 Novolog Vial SQ 4 units Q6HPO KWAKU Administration Protocol Insulin Detemir 28 units 08/21/15 09:35 08/30/15 22:53 Levemir Vial SQ 28 units HS KWAKU Administration Lisinopril 40 mg 08/20/15 10:00 08/30/15 10:01 Prinivil - GT 40 mg DAILY KWAKU Administration Metoprolol Tartrate 5 mg 07/28/15 19:09 Lopressor Injection - IVPB Q6H PRN HYPERTENSION Metoprolol Tartrate 125 mg 08/21/15 09:35 08/30/15 22:32 Lopressor - GT 125 mg BID KWAKU Administration Multivitamins 5 ml 07/31/15 15:38 08/30/15 10:01 Thera-Plus - GT 5 ml DAILY KWAKU Administration Mupirocin 1 applic 08/11/15 22:00 08/30/15 22:33 Bactroban 2% Ointment - TP 1 applic BID KWAKU Administration Ondansetron HCl 4 mg 07/28/15 19:09 Zofran Injection - IVPB Q6H PRN NAUSEA Pantoprazole Sodium 40 mg 08/01/15 10:00 08/30/15 10:01 Protonix Packets For Oral Suspension - GT 40 mg DAILY KWAKU Administration Silver Sulfadiazine 1 applic 08/18/15 11:45 08/30/15 10:03 Silvadene - TP 1 applic DAILY KWAKU Administration Objective: Vital Signs Period Temp Pulse Resp BP Sys/Santiago Pulse Ox Last 24 Hr 98.9 F-100.4 F 88-104 12-18 128-150/66-81 98-99 Physical Exam: General: No distressed noted, not able to follow commands HEENT: Trach in place, on vent Lungs: Mechanical breath sounds, no adventitious sounds Heart: RRR, S1S2 Abd: Soft, non-tender, non-distended. Normoactive bowel sounds Ext: Warm, well-perfused. 2+ DP/PT bilaterally Neuro: Eye opening to verbal stimuli. Right side facial droop CBCD WBC 15.0 K/mm3 (4.0-10.0) H 08/29/15 06:00 RBC 2.98 M/mm3 (4.00-5.60) L 08/29/15 06:00 Hgb 8.7 GM/dL (11.7-16.9) L 08/29/15 06:00 Hct 26.8 % (35.4-49) L 08/29/15 06:00 MCV 89.9 fl (80-96) 08/29/15 06:00 MCHC 32.5 g/dl (32.0-35.9) 08/29/15 06:00 RDW 16.5 % (11.9-15.9) H 08/29/15 06:00 Plt Count 189 K/MM3 (134-434) 08/29/15 06:00 MPV 9.3 fl (7.5-11.1) 08/29/15 06:00 CMP Sodium 149 mmol/L (136-145) H 08/29/15 06:00 Potassium 3.3 mmol/L (3.5-5.1) L 08/29/15 06:00 Chloride 110 mmol/L (98-107) H 08/29/15 06:00 Carbon Dioxide 29 mmol/L (21-32) 08/29/15 06:00 Anion Gap 10 (8-16) 08/29/15 06:00 BUN 22 mg/dL (7-18) H 08/29/15 06:00 Creatinine 0.5 mg/dL (0.6-1.3) L 08/29/15 06:00 Creat Clearance w eGFR > 60 (>60) 08/29/15 06:00 Random Glucose 191 mg/dL (74-106) H D 08/29/15 06:00 Calcium 9.1 mg/dL (8.5-10.1) 08/29/15 06:00 Total Bilirubin 0.3 mg/dL (0.2-1.0) 08/29/15 06:00 AST 21 U/L (15-37) 08/29/15 06:00 ALT 38 U/L (12-78) 08/29/15 06:00 Alkaline Phosphatase 114 U/L (45-117) 08/29/15 06:00 Total Protein 6.7 g/dl (6.4-8.2) 08/29/15 06:00 Albumin 2.7 g/dl (3.4-5.0) L 08/29/15 06:00 CARDIAC ENZYMES Creatine Kinase 62 IU/L (38-174) 06/28/15 09:35 Troponin I 0.07 ng/ml (0.03-0.5) D 07/09/15 05:00 Assessment: This is a 75 year old male with PMHx of HTN, IDDM, inguinal hernia who presented to the ED with diverticular bleed s/p R hemicolectomy with hospital course (day 65) 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 Plan: 1) Neurology: Brainstem CVA with anoxic brain injury - S/p trach placement 07/23 - Ventilatory dependent: 2) Cardiology: HTN - Continue Lisinopril - Continue Metoprolol - Continue Amlodipine 3) GI: Diverticular bleed, s/p right hemicoletomy with PEG placement - Tolerating feeds well - Per dietary, free water at 175cc q3h - Hypernatremia, f/u CMP this AM C.diff - Completed course of Vancomycin on 08/26 4) Endocrine: IDDM - ISS q6h - BGM q6h - Levemir 28u sq qhs 5) Integumentary: Compromised skin integrity - Stage III sacrum - Stage II left eat - Turn and reposition q2h - Accuair mattress 6) F/E/N: - Tube feeds with free water q3h - Monitor electrolytes - Prostat bid - Multivitamin 7) Prophylaxis: - Lovenox 40mg sq daily - SCDs bilaterally 8)Dispo: - Discussed with Cammie GONZALEZ), working on long-term care facility placement CODE STATUS: DNR working on this. Needs transfer to long-term care facility. DNR. --SCDs, lovenox DISPO: Placement issue due to lack of any insurance. Advised case management is working on this. Needs transfer to long-term care facility. DNR. Q6HPO KWAKU Administration Insulin Aspart 0 units 08/21/15 18:00 08/30/15 17:51 Novolog Vial SQ 4 units Q6HPO KWAKU Administration Protocol Insulin Detemir 28 units 08/21/15 09:35 08/29/15 23:05 Levemir Vial SQ 28 units HS KWAKU Administration Lisinopril 40 mg 08/20/15 10:00 08/30/15 10:01 Prinivil - GT 40 mg DAILY KWAKU Administration Metoprolol Tartrate 5 mg 07/28/15 19:09 Lopressor Injection - IVPB Q6H PRN HYPERTENSION Metoprolol Tartrate 125 mg 08/21/15 09:35 08/30/15 10:05 Lopressor - GT 125 mg BID KWAKU Administration Multivitamins 5 ml 07/31/15 15:38 08/30/15 10:01 Thera-Plus - GT 5 ml DAILY KWAKU Administration Mupirocin 1 applic 08/11/15 22:00 08/30/15 10:05 Bactroban 2% Ointment - TP 1 applic BID KWAKU Administration Ondansetron HCl 4 mg 07/28/15 19:09 Zofran Injection - IVPB Q6H PRN NAUSEA Pantoprazole Sodium 40 mg 08/01/15 10:00 08/30/15 10:01 Protonix Packets For Oral Suspension - GT 40 mg DAILY KWAKU Administration Silver Sulfadiazine 1 applic 08/18/15 11:45 08/30/15 10:03 Silvadene - TP 1 applic DAILY KWAKU Administration A/P: This is hospital day #64 for this 75 year-old male with HTN, IDDM, inguinal hernia, and diverticular bleed s/p R hemicolectomy, 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 Anoxic brain injury s/p brainstem CVA Hypertension --continue lisinopril, metoprolol, amlodipine Respiratory failure secondary to anoxic brain injury CPAP trial --s/p trach, vent dependent, daily pressure support trials --spoke to respiratory, no pressure support trial today due to tachypnea --vent settings: AC 10/500/30/5 s/p diverticular bleed, right hemicolectomy --s/p PEG --tolerating feeds Hypernatremia --Na 149, free water via feeding tube pump @ 45cc's per hour; check Na level in am C. difficile colitis, ruled out IDDM --Levemir --Novolog standing and sliding scale --fingersticks Multiple pressure ulcers -- Stage III sacrum, Stage II left ear -- optifoam, Allevyn, Accuair mattress -- frequent turning and positioning FLUIDS/ELECTROLYTES/NUTRITION FLUIDS: 45cc free water hourly via tube feeds pump ELECTROLYTES: replete as indicated NUTRITION: Glucerna tube feeds at goal DVT Prophylaxis --SCDs, lovenox DISPO: Placement issue due to lack of any insurance. Advised case management is working on this. Needs transfer to long-term care facility. DNR.
[2015-08-31] MEDS: ENOXAPARIN NA (PORCINE) 40 MG/0.4 ML DISP.SYRIN SQ SCH (11:15)
[2015-08-31] MEDS: SILVER SULFADIAZINE 1% TOP CREAM 50 GM JAR TP SCH (11:15)
[2015-08-31] MEDS: COLLAGENASE CLOSTRIDIUM HIST. 30 GRAMS TUBE TP SCH (11:15)
[2015-08-31] MEDS: MUPIROCIN 2% TOPICAL OINTMENT 22 GM TUBE TP SCH ×2 (11:15→22:52)
[2015-08-31] MEDS: AMINO ACIDS/PROTEIN HYDROLYS SUGAR-FREE 30 ML PACKET GT SCH ×2 (11:16→22:53)
[2015-08-31] MEDS: CHLORHEXIDINE GLUCONATE 0.12% 15ML CUP MM SCH ×2 (11:16→22:53)
[2015-08-31] MEDS: amLODIPine BESYLATE 10 MG TABLET (FP) GT SCH (11:16)
[2015-08-31] MEDS: LISINOPRIL 20 MG TABLET (FP) GT SCH (11:16)
[2015-08-31] MEDS: METOPROLOL TARTRATE 50 MG TABLET (FP) GT SCH ×2 (11:17→22:52)
[2015-08-31] MEDS: PANTOPRAZOLE SOD 40 MG SUSPENSION PACKET GT SCH (11:17)
[2015-08-31] MEDS: MULTIVITAMINS THERAPEUTIC GT SCH (11:17)
--- NOTE | 2015-08-31 11:51 | PN ---
Progress Note, Physician History of Present Illness: pulmonary no change unresponsive on vent support ac mode. - Current Medication List Current Medications: Active Medications Acetaminophen (Tylenol Oral Solution -) 650 mg GT Q6H PRN PRN Reason: FEVER Last Admin: 08/30/15 06:17 Dose: 650 mg Amino Acids (Prostat Sugar-Free Packet -) 30 ml GT BID [facility] Last Admin: 08/31/15 11:16 Dose: 30 ml Amlodipine Besylate (Norvasc -) 10 mg GT DAILY [facility] Last Admin: 08/31/15 11:16 Dose: 10 mg Chlorhexidine Gluconate (Peridex -) 15 ml MM BID [facility] Last Admin: 08/31/15 11:16 Dose: 15 ml Collagenase (Santyl -) 1 applic TP DAILY [facility] Last Admin: 08/31/15 11:15 Dose: 1 applic Enoxaparin Sodium (Lovenox -) 40 mg SQ DAILY [facility] Last Admin: 08/31/15 11:15 Dose: 40 mg Ibuprofen (Motrin Oral Suspension -) 200 mg PO Q6H PRN PRN Reason: FEVER Last Admin: 08/28/15 06:48 Dose: 200 mg Insulin Aspart (Novolog Vial) 5 units SQ Q6HPO [facility] Last Admin: 08/31/15 06:48 Dose: 5 units Insulin Aspart (Novolog Vial) 0 units SQ Q6HPO [facility] PRN Reason: Protocol Last Admin: 08/31/15 06:49 Dose: 4 units Insulin Detemir (Levemir Vial) 28 units SQ HS [facility] Last Admin: 08/30/15 22:53 Dose: 28 units Lisinopril (Prinivil -) 40 mg GT DAILY [facility] Last Admin: 08/31/15 11:16 Dose: 40 mg Metoprolol Tartrate (Lopressor Injection -) 5 mg IVPB Q6H PRN PRN Reason: HYPERTENSION Metoprolol Tartrate (Lopressor -) 125 mg GT BID [facility] Last Admin: 08/31/15 11:17 Dose: 125 mg Multivitamins (Thera-Plus -) 5 ml GT DAILY [facility] Last Admin: 08/31/15 11:17 Dose: 5 ml Mupirocin (Bactroban 2% Ointment -) 1 applic TP BID [facility] Last Admin: 08/31/15 11:15 Dose: 1 applic Ondansetron HCl (Zofran Injection -) 4 mg IVPB Q6H PRN PRN Reason: NAUSEA Pantoprazole Sodium (Protonix Packets For Oral Suspension -) 40 mg GT DAILY [facility] Last Admin: 08/31/15 11:17 Dose: 40 mg Silver Sulfadiazine (Silvadene -) 1 applic TP DAILY [facility] Last Admin: 08/31/15 11:15 Dose: 1 applic - Objective Vital Signs: Vital Signs Temperature 98.9 F 08/31/15 09:07 Pulse Rate 88 08/31/15 09:07 Respiratory Rate 12 08/31/15 10:36 Blood Pressure 132/78 08/31/15 09:07 O2 Sat by Pulse Oximetry (%) 99 08/30/15 22:00 Constitutional: Yes: Thin, Other (unresponsive) Eyes: Yes: WNL HENT: Yes: WNL Neck: Yes: Supple (trached) Cardiovascular: Yes: Regular Rate and Rhythm, S1, S2 Respiratory: Yes: Rhonchi (few rhonchi) Gastrointestinal: Yes: Normal Bowel Sounds, Soft Extremities: Yes: WNL Edema: No Labs: CBC, BMP 08/29/15 06:00 08/29/15 06:00 INR, PTT INR 1.30 (0.86-1.14) H 07/29/15 10:00 Problem List - Problems (1) Anoxic brain damage Code: G93.1 (2) Lower GI bleed Code: K92.2 (3) 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 - enteral feeds - DVT/GI prophylaxis - Prognosis poor - NH placement vent facility - [facility]
[2015-08-31 12:21] LABS: BASOPHIL 0.4 % (0-2.0); EOSINOPHIL 3.5 % (0-4.5); MCH 28.5 pg (25.7-33.7); MCHC 32.2 g/dl (32.0-35.9); MEAN CELL VOLUME 88.7 fl (80-96); PLATELET COUNT 222 K/MM3 (134-434); RDW 15.5 % (11.9-15.9); WHITE BLOOD COUNT 12.9 K/mm3 (4.0-10.0)
[2015-08-31 12:51] LABS: ALBUMIN 2.5 g/dl (3.4-5.0); ANION GAP 7 (8-16); BILIRUBIN,TOTAL 0.2 mg/dL (0.2-1.0); CALCIUM 9.3 mg/dL (8.5-10.1); CO2 31 mmol/L (21-32); CREATININE 0.4 mg/dL (0.6-1.3); GLUCOSE,RANDOM 147 mg/dL (74-106); MAGNESIUM 2.1 mg/dL (1.8-2.4); SGOT/AST 14 U/L (15-37); SGPT/ALT 30 U/L (12-78)
[2015-08-31 12:52] LABS: ALK PHOS 104 U/L (45-117); TOT PROT 6.5 g/dl (6.4-8.2)
--- NOTE | 2015-08-31 16:10 | PN ---
Progress Note (short form) - Note Progress Note: neurology follow up pt seen and examined at bedside today. He is now trached but awake and able to establish eye contact he appears to make purposeful movements with his right arm carotids dopplers were negative 2d echo was limited VSS/Afebrile general: resting in bed comfortable, no distress abd: soft ND/NT/+bs neuro: sensory aphaisa, possible motor as well but does not have a speaking valve to evaluate, does not mimic gestures slight left NFL,left arm plegic, minimal toe movement in the left foot minimal reaction to tactile stimuli in the left arm and left foot. + babinski left foot, reduced muscle bulk throughout A/P likely had multi territory ischemic infarcts with resultant left arm/leg plegia that were not well visualized on prior CTH in the setting of rectal bleeding resulting in the need for a hemicolectomy. 1. repeat HCT 2. check ldl 3. not on anti-platelets due to gi bleeding 4. physical therapy 5. attempt speaking valve trail if able 6. supportive care
[2015-08-31] MEDS: INSULIN DETEMIR 100 UNITS/ML MDV SQ SCH (22:53)
[2015-09-01] MEDS: INSULIN (NOVOLOG) ASPART 100 UNITS/ML 10ML VIAL SQ SCH ×8 (00:05→17:39)
[2015-09-01 08:04] LABS: BASOPHIL 0.5 % (0-2.0); EOSINOPHIL 3.5 % (0-4.5); MCH 29.1 pg (25.7-33.7); MCHC 32.8 g/dl (32.0-35.9); MEAN CELL VOLUME 88.8 fl (80-96); MEAN PLT VOLUME 8.8 fl (7.5-11.1); NEUTROPHILS 79.2 % (42.8-82.8); PLATELET COUNT 232 K/MM3 (134-434); RDW 15.8 % (11.9-15.9); WHITE BLOOD COUNT 11.6 K/mm3 (4.0-10.0)
[2015-09-01 08:31] LABS: ALBUMIN 2.6 g/dl (3.4-5.0); ANION GAP 8 (8-16); BILIRUBIN,TOTAL 0.2 mg/dL (0.2-1.0); CALCIUM 9.3 mg/dL (8.5-10.1); CO2 30 mmol/L (21-32); CREATININE 0.3 mg/dL (0.6-1.3); GLUCOSE,RANDOM 152 mg/dL (74-106); SGOT/AST 14 U/L (15-37); SGPT/ALT 29 U/L (12-78); TOT PROT 6.6 g/dl (6.4-8.2)
[2015-09-01 08:32] LABS: ALK PHOS 112 U/L (45-117)
[2015-09-01] MEDS: MUPIROCIN 2% TOPICAL OINTMENT 22 GM TUBE TP SCH ×2 (10:00→21:24)
[2015-09-01] MEDS: METOPROLOL TARTRATE 50 MG TABLET (FP) GT SCH ×2 (10:21→21:32)
[2015-09-01] MEDS: ENOXAPARIN NA (PORCINE) 40 MG/0.4 ML DISP.SYRIN SQ SCH (10:22)
[2015-09-01] MEDS: amLODIPine BESYLATE 10 MG TABLET (FP) GT SCH (10:22)
[2015-09-01] MEDS: AMINO ACIDS/PROTEIN HYDROLYS SUGAR-FREE 30 ML PACKET GT SCH ×2 (10:23→21:33)
[2015-09-01] MEDS: CHLORHEXIDINE GLUCONATE 0.12% 15ML CUP MM SCH ×2 (10:23→21:28)
[2015-09-01] MEDS: LISINOPRIL 20 MG TABLET (FP) GT SCH (10:23)
[2015-09-01] MEDS: MULTIVITAMINS THERAPEUTIC GT SCH (10:24)
[2015-09-01] MEDS: PANTOPRAZOLE SOD 40 MG SUSPENSION PACKET GT SCH (10:24)
[2015-09-01] MEDS: SILVER SULFADIAZINE 1% TOP CREAM 50 GM JAR TP SCH (10:25)
[2015-09-01] MEDS: COLLAGENASE CLOSTRIDIUM HIST. 30 GRAMS TUBE TP SCH (10:25)
--- NOTE | 2015-09-01 12:21 | PN ---
Progress Note (short form) - Note Progress Note: [facility] *LIVE* Progress Note (short form) Patient Name: CRUZ LEE Date of : 1940 Patient Status: Inpatient Attending Provider: Pam Silverman Date: 08/18/15 11:32 Initialization Date: 08/18/15 11:32 Progress Note (short form) - Note Progress Note: Wound Assessment [facility] Reason for visit: Wound Assessment Request for consultation: by [facility] Interdisciplinary Wound Care Team Initial Encounter: No Previous Encounter: Yes - History of Present Illness Past Medical History Cardio/Vascular HTN Endocrine Diabetes Mellitus Past Surgical History Past Surgical History Hernia Repair Social History Smoking history Never smoked Have you smoked in the past 12 No months Hx Alcohol Use No Current Medications Generic Name Dose Route Start Last Admin Trade Name Freq PRN Reason Stop Dose Admin Acetaminophen 650 mg 07/31/15 15:42 08/04/15 02:15 Tylenol Oral Solution - GT 650 mg Q6H PRN Administration FEVER Amino Acids 30 ml 08/01/15 10:00 08/04/15 09:53 Prostat Sugar-Free Packet - GT 30 ml DAILY KWAKU Administration Amlodipine Besylate 10 mg 08/01/15 10:00 08/04/15 09:57 Norvasc - GT 10 mg DAILY KWAKU Administration Chlorhexidine Gluconate 15 ml 07/28/15 22:00 08/04/15 09:53 Peridex - MM 15 ml BID KWAKU Administration Metronidazole 100 mls @ 100 mls/hr 08/02/15 07:45 08/04/15 09:47 Flagyl 500mg Premixed Ivpb - IVPB 100 mls/hr Q8H-IV KWAKU Administration Ceftriaxone Sodium 1 gm/ 50 mls @ 100 mls/hr 08/02/15 16:30 08/04/15 09:47 Dextrose IVPB 100 mls/hr DAILY KWAKU Administration Insulin Aspart 0 units 07/29/15 00:00 08/04/15 12:13 Novolog Flexpen Sliding Scale - SQ 4 units Q6HPO KWAKU Administration Protocol Insulin Aspart 3 units 08/04/15 11:26 08/04/15 12:24 Novolog Flexpen - SQ Not Given Q6HPO KWAKU Insulin Detemir 25 units 08/04/15 11:26 Levemir Flexpen - SQ HS KWAKU Lisinopril 20 mg 08/01/15 10:00 08/04/15 09:56 Prinivil - GT 20 mg DAILY KWAKU Administration Metoprolol Tartrate 5 mg 07/28/15 19:09 Lopressor Injection - IVPB Q6H PRN HYPERTENSION Metoprolol Tartrate 100 mg 07/31/15 22:00 08/04/15 09:57 Lopressor - GT 100 mg BID KWAKU Administration Multivitamins 5 ml 07/31/15 15:38 08/04/15 09:53 Thera-Plus - GT 5 ml DAILY KWAKU Administration Ondansetron HCl 4 mg 07/28/15 19:09 Zofran Injection - IVPB Q6H PRN NAUSEA Pantoprazole Sodium 40 mg 08/01/15 10:00 08/04/15 09:57 Protonix Packets For Oral Suspension - GT 40 mg DAILY KWAKU Administration Vancomycin HCl 125 mg 07/31/15 18:00 08/04/15 12:14 Vancomycin Oral Solution GT 125 mg Q6HPO KWAKU Administration Allergies Allergy/AdvReac Type Severity Reaction Status Date / Time No Known Allergies Allergy Verified 06/26/15 21:31 Physical Exam - Objective Last Vital Signs Temp Pulse Resp BP Pulse Ox 100.1 F H 97 H 20 145/84 98 08/04/15 06:00 08/04/15 10:07 08/04/15 10:07 08/04/15 06:00 08/04/15 10:07 Laboratory Last Values WBC 13.3 K/mm3 (4.0-10.0) H 08/04/15 06:00 Corrected WBC (auto) Cancelled 06/26/15 21:50 RBC 2.95 M/mm3 (4.00-5.60) L 08/04/15 06:00 Hgb 8.5 GM/dL (11.7-16.9) L 08/04/15 06:00 Hct 26.6 % (35.4-49) L 08/04/15 06:00 MCV 90.0 fl (80-96) 08/04/15 06:00 MCHC 32.2 g/dl (32.0-35.9) 08/04/15 06:00 RDW 14.3 % (11.9-15.9) 08/04/15 06:00 Plt Count 182 K/MM3 (134-434) 08/04/15 06:00 MPV 9.5 fl (7.5-11.1) 08/04/15 06:00 Add Manual Diff Cancelled 06/26/15 21:50 Neutrophils % 79.5 % (42.8-82.8) 08/04/15 06:00 Lymphocytes % 11.7 % (8-40) 08/04/15 06:00 Monocytes % 4.3 % (3.8-10.2) 08/04/15 06:00 Eosinophils % 4.0 % (0-4.5) 08/04/15 06:00 Basophils % 0.5 % (0-2.0) 08/04/15 06:00 Band Neutrophils 6.0 % (0-10) 06/28/15 09:35 Differential Comment Manual diff done 06/28/15 09:35 Smudge Cells Cancelled 06/26/15 21:50 Platelet Estimate Slt decreased (NORMAL) 06/28/15 09:35 Platelet Comment No clumping noted 06/28/15 09:35 Platelet Comment No clotting detected 06/28/15 09:35 Normal RBC Morphology Cancelled 06/26/15 21:50 RBC Morphology Cancelled 06/26/15 21:50 INR 1.30 (0.86-1.14) H 07/29/15 10:00 PTT (Actin FS) 28.6 SECONDS (23.5-38.3) 07/23/15 05:20 Anticoagulation Therapy Y 07/11/15 07:07 Puncture Site Right radial 07/11/15 07:07 ABG pH 7.44 (7.35-7.45) 07/11/15 07:07 ABG pCO2 at Pt Temp 42.1 mmHg (35-45) 07/11/15 07:07 ABG pO2 at Pt Temp 113.0 mmHg (70-100) H D 07/11/15 07:07 ABG HCO3 27.8 meq/L (22-26) H 07/11/15 07:07 ABG O2 Sat (Measured) 99.1 % (90-98.9) H 07/11/15 07:07 ABG O2 Content 13.3 % vol (15-22) L 07/11/15 07:07 ABG Base Excess 3.8 meq/l (-2-2) H 07/11/15 07:07 Izaiah Test Positive 07/11/15 07:07 O2 Delivery Device Ventilator 07/11/15 07:07 Oxygen Flow Rate 30% 07/11/15 07:07 Vent Mode A/c 07/11/15 07:07 Vent Rate 10 07/11/15 07:07 Mechanical Rate Yes 07/11/15 07:07 PEEP 5.0 cmH2O 07/11/15 07:07 Pressure Support Vent 500 07/11/15 07:07 Sodium 151 mmol/L (136-145) H 08/04/15 06:00 Potassium 3.9 mmol/L (3.5-5.1) 07/29/15 07:00 Chloride 113 mmol/L (98-107) H 07/29/15 07:00 Carbon Dioxide 33 mmol/L (21-32) H 07/29/15 07:00 Anion Gap 4 (8-16) L 07/29/15 07:00 BUN 26 mg/dL (7-18) H 07/29/15 07:00 Creatinine 0.9 mg/dL (0.6-1.3) 07/29/15 07:00 Creat Clearance w eGFR > 60 (>60) 07/29/15 07:00 POC Glucometer 212 UNITS (()) 08/04/15 12:10 Random Glucose 261 mg/dL (74-106) H D 07/29/15 07:00 Lactic Acid 1.606 mmol/L (0.4-2.0) 06/27/15 10:10 Calcium 9.5 mg/dL (8.5-10.1) 07/29/15 07:00 Phosphorus 3.5 mg/dL (2.5-4.9) 07/29/15 07:00 Magnesium 2.2 mg/dL (1.8-2.4) 07/29/15 07:00 Total Bilirubin 0.3 mg/dL (0.2-1.0) 07/29/15 07:00 AST 25 U/L (15-37) 07/29/15 07:00 ALT 36 U/L (12-78) D 07/29/15 07:00 Alkaline Phosphatase 104 U/L (45-117) 07/29/15 07:00 Creatine Kinase 62 IU/L (38-174) 06/28/15 09:35 Creatine Kinase Index 0.7 % (0.0-5.0) 06/26/15 21:50 CK-MB (CK-2) 1.077 ng/ml (0.3-4.0) 06/26/15 21:50 CK-MB (CK-2) Rel Index Cancelled 06/26/15 21:50 Troponin I 0.07 ng/ml (0.03-0.5) D 07/09/15 05:00 Total Protein 7.0 g/dl (6.4-8.2) 07/29/15 07:00 Albumin 2.6 g/dl (3.4-5.0) L 07/29/15 07:00 Lipase 140 U/L (73-293) 06/26/15 21:50 Prolactin 19.8 ng/ml (4.0-15.2) H 07/02/15 05:20 Urine Color Yellow 08/02/15 17:30 Urine Appearance Cloudy 08/02/15 17:30 Urine pH 5.0 (5.0-8.0) 08/02/15 17:30 Ur Specific Carson 1.029 (1.001-1.035) 08/02/15 17:30 Urine Protein Negative (NEGATIVE) 08/02/15 17:30 Urine Glucose (UA) 1+ (NEGATIVE) H 08/02/15 17:30 Urine Ketones Negative (NEGATIVE) 08/02/15 17:30 Urine Blood Negative (NEGATIVE) 08/02/15 17:30 Urine Nitrite Negative (NEGATIVE) 08/02/15 17:30 Urine Bilirubin Negative (NEGATIVE) 08/02/15 17:30 Urine Urobilinogen Negative E.U./dl (0.2-1.0) 08/02/15 17:30 Ur Leukocyte Esterase Negative (NEGATIVE) 08/02/15 17:30 Urine RBC 180 /hpf (0-3) 07/27/15 15:55 Urine WBC 5 /hpf (3-5) 07/27/15 15:55 Ur Epithelial Cells Rare /hpf (FEW) 07/27/15 15:55 Urine Mucus Rare 07/27/15 15:55 Stool Occult Blood Negative (NEGATIVE) 07/02/15 12:00 Hepatitis C Ab (EIA) <0.1 s/co ratio (0.0-0.9) 07/03/15 05:15 Blood Type O POSITIVE 07/22/15 11:54 Antibody Screen Negative 07/22/15 11:54 Crossmatch See Detail 06/30/15 15:15 Crossmatch IS Only See Detail 06/26/15 21:50 Spec Expiration Date 06/26/15 21:50 Microbiology 08/02/15 19:00 Urine - Urine Castellano Urine Culture - Final NO GROWTH OBTAINED 07/30/15 18:30 Blood - Peripheral Venous Blood Culture - Preliminary NO GROWTH OBTAINED AFTER 96 HOURS, INCUBATION TO CONTINUE FOR 1 DAYS. 07/30/15 18:30 Blood - Peripheral Venous Blood Culture - Preliminary NO GROWTH OBTAINED AFTER 96 HOURS, INCUBATION TO CONTINUE FOR 1 DAYS. 08/02/15 17:20 Blood - Peripheral Venous Blood Culture - Preliminary NO GROWTH OBTAINED AFTER 24 HOURS, INCUBATION TO CONTINUE FOR 4 DAYS. 08/02/15 17:20 Blood - Peripheral Venous Blood Culture - Preliminary NO GROWTH OBTAINED AFTER 24 HOURS, INCUBATION TO CONTINUE FOR 4 DAYS. 08/02/15 22:55 Stool Clostridium difficile Antigen (MACHO) - Final 08/02/15 22:55 Stool Clostridium difficile Toxin Assay - Final 07/27/15 19:00 Blood - Peripheral Venous Blood Culture - Final NO GROWTH AFTER 5 DAYS INCUBATION 07/27/15 19:00 Blood - Peripheral Venous Blood Culture - Final NO GROWTH AFTER 5 DAYS INCUBATION 07/27/15 19:30 Stool Clostridium difficile (PCR) - Final 07/27/15 15:55 Urine - Urine Castellano Urine Culture - Final NO GROWTH OBTAINED 07/24/15 21:50 Sputum - Endotrachea Suction/Ventilator Gram Stain - Final 07/24/15 21:50 Sputum - Endotrachea Suction/Ventilator Sputum Culture - Preliminary NORMAL RESPIRATORY ARMAND 07/15/15 11:30 Blood - Peripheral Venous Blood Culture - Final NO GROWTH AFTER 5 DAYS INCUBATION 07/15/15 11:30 Blood - Peripheral Venous Blood Culture - Final NO GROWTH AFTER 5 DAYS INCUBATION 07/10/15 10:30 Stool Stool Culture - Final NO SALMONELLA, SHIGELLA, YERSINIA, CAMPYLOBACTER OR E COLI 0157 ISOLATED 07/10/15 10:35 Stool Clostridium difficile Antigen (MACHO) - Final 07/10/15 10:35 Stool Clostridium difficile Toxin Assay - Final 07/10/15 10:30 Stool Gram Stain - Final 07/02/15 18:00 Blood - Peripheral Venous Blood Culture - Final NO GROWTH AFTER 5 DAYS INCUBATION 07/02/15 18:00 Blood - Peripheral Venous Blood Culture - Final NO GROWTH AFTER 5 DAYS INCUBATION 06/28/15 09:32 Blood - Peripheral Venous Blood Culture - Final NO GROWTH AFTER 5 DAYS INCUBATION 06/28/15 09:32 Blood - Peripheral Venous Blood Culture - Final NO GROWTH AFTER 5 DAYS INCUBATION 06/28/15 17:30 Sputum - Endotrachea Suction/Ventilator Gram Stain - Final 06/28/15 17:30 Sputum - Endotrachea Suction/Ventilator Sputum Culture - Final NORMAL RESPIRATORY ARMAND 06/27/15 20:30 Urine - Urine Castellano Urine Culture - Final NO GROWTH OBTAINED 06/28/15 10:00 Urine For Antigen Detection Legionella Antigen - Final 06/28/15 10:00 Urine For Antigen Detection Streptococcus pneumoniae Antigen (M - Final Wounds - Wound Wound #1 Type of wound: Yes: Pressure ulcer Stage: III healing; no slough, but edges macerated Location/laterality: sacrum across the midline Wound size: 5cmL x 4cm W x 1.0cmD Thickness: Partial Undermining: No Tunneling: No Drainage/exudate: no Wound bed tissue: Erythematous Wound edges color: Erythematous Wound edges raised: yes Wound edges rolled: yes, partially Wound edges contracted: No Pain: No Surrounding tissue to 4cm: Yes: erythematous Wound #2 Type of wound: Yes: Pressure ulcer Stage: II healing Location/laterality: left ear Wound size: 2.0cmL x .5cmW x 0.1cmD Thickness: Partial Undermining: No Tunneling: No Drainage/exudate: Yes, serosanguinous Wound bed tissue: Yes: Erythematous Wound edges color: Normally pigmented Wound edges raised: No Wound edges rolled: No Wound edges contracted: No Pain: No Surrounding tissue to 4cm: Yes: Healthy Wound #3 Pressure ulcer, healed Stage II Assessment/Plan Wound #1 Diagnosis: Pressure ulcer Wound specific intervention: Collagenase to slough area; continue daily; castellano collection system to reduce moisture, maceration Allevyn dressing Wound #2 Diagnosis: Pressure ulcer Wound specific intervention: apply silvadene to affected area daily Wound 3 Diagnosis: pressure ulcer Wound specific intervention: none Impediments to healing: Limited mobility, Unable to self-position in bed, Hypoalbunemia, Nutritional deficiencies, Incontinence of urine, Incontinence of bowel Nutrition/Dietary supplements/vitamins: change to Jevity 1.5 at goal of 50, continue Prostat BID; free water via tube feed pump No recommendations Support Surface: Accucair Overlay HOB elevation: 30 degrees Off-loading: Turning/repositioning q2h, Elevate heels off bed with pillows Incontinence management: Avoid diapers; if must be used, do not secure around patient
--- NOTE | 2015-09-01 15:02 | PN ---
Progress Note (short form) - Note Progress Note: PULMONARY Remains vented, eyes open. Febrile overnight. Last Vital Signs Temp Pulse Resp BP Pulse Ox 100.7 F H 78 18 131/70 99 09/01/15 13:17 09/01/15 13:17 09/01/15 14:09 09/01/15 13:17 09/01/15 11:31 Gen: vented, awake Heart: RRR Lung: decreased breath sounds at the bases Abd: soft, nontender, dressing dry Ext: no edema CBC, BMP 09/01/15 07:10 09/01/15 07:10 Active Medications Acetaminophen (Tylenol Oral Solution -) 650 mg GT Q6H PRN PRN Reason: FEVER Last Admin: 08/30/15 06:17 Dose: 650 mg Amino Acids (Prostat Sugar-Free Packet -) 30 ml GT BID [facility] Last Admin: 09/01/15 10:23 Dose: 30 ml Amlodipine Besylate (Norvasc -) 10 mg GT DAILY [facility] Last Admin: 09/01/15 10:22 Dose: 10 mg Chlorhexidine Gluconate (Peridex -) 15 ml MM BID [facility] Last Admin: 09/01/15 10:23 Dose: 15 ml Collagenase (Santyl -) 1 applic TP DAILY [facility] Last Admin: 09/01/15 10:25 Dose: 1 applic Enoxaparin Sodium (Lovenox -) 40 mg SQ DAILY [facility] Last Admin: 09/01/15 10:22 Dose: 40 mg Ibuprofen (Motrin Oral Suspension -) 200 mg PO Q6H PRN PRN Reason: FEVER Last Admin: 08/28/15 06:48 Dose: 200 mg Insulin Aspart (Novolog Vial) 5 units SQ Q6HPO [facility] Last Admin: 09/01/15 13:07 Dose: 5 units Insulin Aspart (Novolog Vial) 0 units SQ Q6HPO [facility] PRN Reason: Protocol Last Admin: 09/01/15 12:43 Dose: Not Given Insulin Detemir (Levemir Vial) 28 units SQ HS [facility] Last Admin: 08/31/15 22:53 Dose: 28 units Lisinopril (Prinivil -) 40 mg GT DAILY [facility] Last Admin: 09/01/15 10:23 Dose: 40 mg Metoprolol Tartrate (Lopressor Injection -) 5 mg IVPB Q6H PRN PRN Reason: HYPERTENSION Metoprolol Tartrate (Lopressor -) 125 mg GT BID [facility] Last Admin: 09/01/15 10:21 Dose: 125 mg Multivitamins (Thera-Plus -) 5 ml GT DAILY [facility] Last Admin: 09/01/15 10:24 Dose: 5 ml Mupirocin (Bactroban 2% Ointment -) 1 applic TP BID [facility] Last Admin: 08/31/15 22:52 Dose: 1 applic Ondansetron HCl (Zofran Injection -) 4 mg IVPB Q6H PRN PRN Reason: NAUSEA Pantoprazole Sodium (Protonix Packets For Oral Suspension -) 40 mg GT DAILY [facility] Last Admin: 09/01/15 10:24 Dose: 40 mg Silver Sulfadiazine (Silvadene -) 1 applic TP DAILY [facility] Last Admin: 09/01/15 10:25 Dose: 1 applic A/P Acute Respiratory Failure s/p Tracheostomy Acute CVA/Anoxic Brain Injury Acute Lower Diverticular GI Bleed Acute Blood Loss Anemia s/p Pneumonia HTN DM CKD + C Diff Ag Fever - enteral feeds - DVT/GI prophylaxis - spontaneous breathing trials as tolerated but pt poor candidate for weaning due to poor mental status - will need vent placement
--- NOTE | 2015-09-01 15:42 | PN ---
Progress Note (short form) - Note Progress Note: neurology follow up pt seen and examined at bedside today. He is now trached but awake and able to establish eye contact makes purposeful movements with his right arm carotids dopplers were negative 2d echo was limited VSS/Afebrile general: resting in bed comfortable, no distress abd: soft ND/NT/+bs neuro: sensory aphaisa, possible motor as well but does not have a speaking valve to evaluate, does not mimic gestures slight left NFL,left arm plegic, minimal toe movement in the left foot minimal reaction to tactile stimuli in the left arm and left foot. + babinski left foot, reduced muscle bulk throughout A/P likely had multi territory ischemic infarcts with resultant left arm/leg plegia that were not well visualized on prior CTH in the setting of rectal bleeding resulting in the need for a hemicolectomy. 1. repeat HCT 2. check ldl 3. not on anti-platelets due to gi bleeding 4. physical therapy 5. attempt speaking valve trail if able 6. supportive care
--- NOTE | 2015-09-01 15:43 | PN ---
Progress Note (short form) - Note Progress Note: Subjective: The patient was seen and examined at the bedside, trach, opening eyes to verbal stimuli, not following commands 24 hour events: Febrile, f/u urine culture, UA, blood culture, chest x-ray Current Medications Generic Name Dose Route Start Last Admin Trade Name Freq PRN Reason Stop Dose Admin Acetaminophen 650 mg 07/31/15 15:42 08/30/15 06:17 Tylenol Oral Solution - GT 650 mg Q6H PRN Administration FEVER Amino Acids 30 ml 08/11/15 22:00 09/01/15 10:23 Prostat Sugar-Free Packet - GT 30 ml BID [facility] Administration Amlodipine Besylate 10 mg 08/01/15 10:00 09/01/15 10:22 Norvasc - GT 10 mg DAILY [facility] Administration Chlorhexidine Gluconate 15 ml 07/28/15 22:00 09/01/15 10:23 Peridex - MM 15 ml BID [facility] Administration Collagenase 1 applic 08/12/15 10:00 09/01/15 10:25 Santyl - TP 1 applic DAILY [facility] Administration Enoxaparin Sodium 40 mg 08/27/15 16:15 09/01/15 10:22 Lovenox - SQ 40 mg DAILY [facility] Administration Ibuprofen 200 mg 08/13/15 14:55 08/28/15 06:48 Motrin Oral Suspension - PO 200 mg Q6H PRN Administration FEVER Insulin Aspart 5 units 08/21/15 09:35 09/01/15 13:07 Novolog Vial SQ 5 units Q6HPO [facility] Administration Insulin Aspart 0 units 08/21/15 18:00 09/01/15 12:43 Novolog Vial SQ Not Given Q6HPO [facility] Protocol Insulin Detemir 28 units 08/21/15 09:35 08/31/15 22:53 Levemir Vial SQ 28 units HS [facility] Administration Lisinopril 40 mg 08/20/15 10:00 09/01/15 10:23 Prinivil - GT 40 mg DAILY [facility] Administration Metoprolol Tartrate 5 mg 07/28/15 19:09 Lopressor Injection - IVPB Q6H PRN HYPERTENSION Metoprolol Tartrate 125 mg 08/21/15 09:35 09/01/15 10:21 Lopressor - GT 125 mg BID [facility] Administration Multivitamins 5 ml 07/31/15 15:38 09/01/15 10:24 Thera-Plus - GT 5 ml DAILY [facility] Administration Mupirocin 1 applic 08/11/15 22:00 08/31/15 22:52 Bactroban 2% Ointment - TP 1 applic BID [facility] Administration Ondansetron HCl 4 mg 07/28/15 19:09 Zofran Injection - IVPB Q6H PRN NAUSEA Pantoprazole Sodium 40 mg 08/01/15 10:00 09/01/15 10:24 Protonix Packets For Oral Suspension - GT 40 mg DAILY [facility] Administration Silver Sulfadiazine 1 applic 08/18/15 11:45 09/01/15 10:25 Silvadene - TP 1 applic DAILY [facility] Administration Objective: Vital Signs Period Temp Pulse Resp BP Sys/Santiago Pulse Ox Last 24 Hr 99.4 F-100.7 F 78-98 10 131-142/70-78 99-100 Physical Exam: General: No distress noted, not able to follow commands HEENT: Trach in place, on vent Lungs: Mechanical breath sounds, no adventitious sounds Heart: RRR, S1S2 Abd: Soft, non-tender, non-distended. Normoactive bowel sounds Ext: Warm, well-perfused. 2+ DP/PT bilaterally Neuro: Eye opening to verbal stimuli. Right side facial droop CBCD WBC 11.6 K/mm3 (4.0-10.0) H 09/01/15 07:10 RBC 2.96 M/mm3 (4.00-5.60) L 09/01/15 07:10 Hgb 8.6 GM/dL (11.7-16.9) L 09/01/15 07:10 Hct 26.3 % (35.4-49) L 09/01/15 07:10 MCV 88.8 fl (80-96) 09/01/15 07:10 MCHC 32.8 g/dl (32.0-35.9) 09/01/15 07:10 RDW 15.8 % (11.9-15.9) 09/01/15 07:10 Plt Count 232 K/MM3 (134-434) 09/01/15 07:10 MPV 8.8 fl (7.5-11.1) 09/01/15 07:10 CMP Sodium 144 mmol/L (136-145) 09/01/15 07:10 Potassium 3.4 mmol/L (3.5-5.1) L 09/01/15 07:10 Chloride 106 mmol/L (98-107) 09/01/15 07:10 Carbon Dioxide 30 mmol/L (21-32) 09/01/15 07:10 Anion Gap 8 (8-16) 09/01/15 07:10 BUN 20 mg/dL (7-18) H 09/01/15 07:10 Creatinine 0.3 mg/dL (0.6-1.3) L D 09/01/15 07:10 Creat Clearance w eGFR > 60 (>60) 09/01/15 07:10 Random Glucose 152 mg/dL (74-106) H 09/01/15 07:10 Calcium 9.3 mg/dL (8.5-10.1) 09/01/15 07:10 Total Bilirubin 0.2 mg/dL (0.2-1.0) 09/01/15 07:10 AST 14 U/L (15-37) L 09/01/15 07:10 ALT 29 U/L (12-78) 09/01/15 07:10 Alkaline Phosphatase 112 U/L (45-117) 09/01/15 07:10 Total Protein 6.6 g/dl (6.4-8.2) 09/01/15 07:10 Albumin 2.6 g/dl (3.4-5.0) L 09/01/15 07:10 CARDIAC ENZYMES Creatine Kinase 62 IU/L (38-174) 06/28/15 09:35 Troponin I 0.07 ng/ml (0.03-0.5) D 07/09/15 05:00 Assessment: This is a 75 year old male with PMHx of HTN, IDDM, inguinal hernia who presented to the ED with diverticular bleed s/p R hemicolectomy with hospital course (day 65) 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 Plan: 1) Neurology: Brainstem CVA with anoxic brain injury - S/p trach placement 07/23 - Ventilatory dependent: // - Not a good candidate for wean trial, poor mental status - Per neuro, no anticoagulation 2/2 GI bleeding 2) ID: Persistent leukocytosis, febrile - F/u UA, urine culture - F/u blood culture - Chest X-ray with bibasilar atelectasis - Will reconsult ID for evaluation 3) Cardiology: HTN - Continue Lisinopril - Continue Metoprolol - Continue Amlodipine 4) GI: Diverticular bleed, s/p right hemicoletomy with PEG placement - Tolerating feeds well - Per dietary, free water at 175cc q3h C.diff - Completed course of Vancomycin on 08/26 5) Endocrine: IDDM - ISS q6h - BGM q6h - Levemir 28u sq qhs 6) Integumentary: Compromised skin integrity - Stage III sacrum - Stage II left eat - Turn and reposition q2h - Accuair mattress 7) F/E/N: - Tube feeds with free water q3h - Monitor electrolytes - Prostat bid - Multivitamin - Hypernatremia, resolved 8) Prophylaxis: - Lovenox 40mg sq daily - SCDs bilaterally 9) Dispo: - Discussed with Cammie GONZALEZ), working on long-term care facility placement CODE STATUS: DNR
[2015-09-01 21:33] LABS: URINE APPEARANCE SLCLOUDY; URINE BILIRUBIN NEGATIVE (NEGATIVE); URINE BLOOD NEGATIVE (NEGATIVE); URINE COLOR YELLOW; URINE GLUCOSE (UA) NEGATIVE (NEGATIVE); URINE KETONE NEGATIVE (NEGATIVE); URINE LEUK ESTERASE NEGATIVE (NEGATIVE); URINE NITRITE NEGATIVE (NEGATIVE); URINE PROTEIN NEGATIVE (NEGATIVE); URINE UROBILINOGEN NEGATIVE E.U./dl (0.2-1.0)
[2015-09-01] MEDS: INSULIN DETEMIR 100 UNITS/ML MDV SQ SCH (22:27)
[2015-09-02] MEDS: INSULIN (NOVOLOG) ASPART 100 UNITS/ML 10ML VIAL SQ SCH ×10 (00:50→23:41)
[2015-09-02 08:22] LABS: BASOPHIL 0.6 % (0-2.0); EOSINOPHIL 2.7 % (0-4.5); MCH 29.1 pg (25.7-33.7); MCHC 32.9 g/dl (32.0-35.9); MEAN CELL VOLUME 88.4 fl (80-96); MEAN PLT VOLUME 8.7 fl (7.5-11.1); PLATELET COUNT 256 K/MM3 (134-434); RDW 15.8 % (11.9-15.9); WHITE BLOOD COUNT 13.3 K/mm3 (4.0-10.0)
[2015-09-02 08:54] LABS: ALBUMIN 2.6 g/dl (3.4-5.0); ANION GAP 7 (8-16); BILIRUBIN,TOTAL 0.2 mg/dL (0.2-1.0); CALCIUM 9.4 mg/dL (8.5-10.1); CHOLESTEROL 106 mg/dL (50-200); CO2 27 mmol/L (21-32); CREATININE 0.4 mg/dL (0.6-1.3); GLUCOSE,RANDOM 154 mg/dL (74-106); LDL CHOLESTEROL (ONLY SJRH) 66 mg/dL; SGOT/AST 17 U/L (15-37); SGPT/ALT 24 U/L (12-78); TOT PROT 6.7 g/dl (6.4-8.2)
[2015-09-02 08:55] LABS: ALK PHOS 104 U/L (45-117)
[2015-09-02] MEDS: ENOXAPARIN NA (PORCINE) 40 MG/0.4 ML DISP.SYRIN SQ SCH (10:37)
[2015-09-02] MEDS: METOPROLOL TARTRATE 50 MG TABLET (FP) GT SCH ×2 (10:40→21:23)
[2015-09-02] MEDS: amLODIPine BESYLATE 10 MG TABLET (FP) GT SCH (10:41)
[2015-09-02] MEDS: CHLORHEXIDINE GLUCONATE 0.12% 15ML CUP MM SCH ×2 (10:41→21:18)
[2015-09-02] MEDS: LISINOPRIL 20 MG TABLET (FP) GT SCH (10:41)
[2015-09-02] MEDS: AMINO ACIDS/PROTEIN HYDROLYS SUGAR-FREE 30 ML PACKET GT SCH ×2 (10:42→21:18)
[2015-09-02] MEDS: PANTOPRAZOLE SOD 40 MG SUSPENSION PACKET GT SCH (10:42)
[2015-09-02] MEDS: ACETAMINOPHEN 650 MG/20.3 ML ORAL SOLUTION (CUPS) GT PRN (10:43)
[2015-09-02] MEDS: MULTIVITAMINS THERAPEUTIC GT SCH (10:43)
[2015-09-02] MEDS: MUPIROCIN 2% TOPICAL OINTMENT 22 GM TUBE TP SCH ×2 (10:47→21:19)
[2015-09-02] MEDS: COLLAGENASE CLOSTRIDIUM HIST. 30 GRAMS TUBE TP SCH (10:48)
[2015-09-02] MEDS: SILVER SULFADIAZINE 1% TOP CREAM 50 GM JAR TP SCH (10:48)
--- NOTE | 2015-09-02 12:38 | CONSULT ---
Admitting History and Physical - Primary Care Physician PCP: Pam Silverman - Admission History Source: Medical Record Limitations to Obtaining History: Other (Lethargy/trach/vent/Peg) - Past Medical History Cardiovascular: Yes: HTN Endocrine: Yes: Diabetes Mellitus - Past Surgical History Past Surgical History: Yes: Hernia Repair - Smoking History Smoking history: Never smoked Have you smoked in the past 12 months: No Aproximately how many cigarettes per day: 0 - Alcohol/Substance Use Hx Alcohol Use: No History - Admission Reason For Visit: LOWER GASTROINTESTINAL HEMORRHAGE - General Mental Status: Lethargic (briefly arousable) - Hearing Hearing: Normal Speech Evaluation - Communication Primary Language: FILIPINO Communication: Yes: Non-Communicable Oral Expression Ability: Yes: Non-Verbal, Non-Vocal - Speech Production Able to Make Needs Known: Yes: Severely Impaired (no attempt) - Swallow Evaluation/Bedside Assessment Current Nutritional Intake: G Tube Tracheostomy Present: Yes Patient on Ventilator: Yes Recommendations - Speech Evaluation, Impression/Plan Impression: Non communicative. Lethargic but arousable. left hemiplegia. Recommendations: Passy [place] Valve - Recommendations Diet Consistency: NPO Liquids: NPO
--- NOTE | 2015-09-02 12:47 | CONSULT ---
[place] Valve Eval - Assessment Prior to PMV Placement O2 Sat by Pulse Oximetry (%): 99 Secretions: Small Amount Patient on Ventilator: Yes Suctioned: Yes Cuff Status: Inflated [place] Valve in Place - Speech Characteristics Able to Phonate with PMV in place: No Speech Pattern: Impaired - Assessment with PMV in Place O2 Sat by Pulse Oximetry (%): 99 Change in Mental Status with PMV in Place: No Able to Manage Secretions: Yes Pt's subjective response to PMV: Yes: Other (Pt swallowed saliva x 2 while on PMV.) Length of time with PMV in place: 10 min - Recommendations Recommendations: PMV as tolerated, Remove PMV while sleeping, Monitor Pulse Ox PMV on (to expedite weaning. ), Supervision while PMV on
--- NOTE | 2015-09-02 13:23 | PN ---
Progress Note (short form) - Note Progress Note: neurology follow up pt seen and examined at bedside today. CTH reviewed trached slightly more lethargic today makes purposeful movements with his right arm carotids Dopplers were negative 2d echo was limited VSS/Afebrile general: resting in bed comfortable, no distress abd: soft ND/NT/+bs neuro: sensory aphaisa, possible motor as well but does not have a speaking valve to evaluate, does not mimic gestures slight left NFL,left arm plegic, minimal toe movement in the left foot minimal reaction to tactile stimuli in the left arm and left foot. + babinski left foot, reduced muscle bulk throughout A/P likely had multi territory ischemic infarcts with resultant left arm/leg plegia that were not well visualized on prior CTH in the setting of rectal bleeding resulting in the need for a hemicolectomy. 1. repeat HCT can explain the patients left side weakness and given degree of atrophy likely represents prior cognitive impairment. however the degree of language deficit cannot be explained by the HEAD CT alone and may represent some degree of depression or toxic metabolic encephalopathy 2. ldl 66 3. not on anti-platelets due to gi bleeding 4. physical therapy 5. speaking valve trail started 6. supportive care
--- NOTE | 2015-09-02 13:39 | PN ---
Progress Note (short form) - Note Progress Note: Subjective: The patient was seen and examined at the bedside, trach, opening eyes to verbal stimuli, squeezed right hand on command and wiggled right toes on command. Current Medications Generic Name Dose Route Start Last Admin Trade Name Freq PRN Reason Stop Dose Admin Acetaminophen 650 mg 07/31/15 15:42 09/02/15 10:43 Tylenol Oral Solution - GT 650 mg Q6H PRN Administration FEVER Amino Acids 30 ml 08/11/15 22:00 09/02/15 10:42 Prostat Sugar-Free Packet - GT 30 ml BID [facility] Administration Amlodipine Besylate 10 mg 08/01/15 10:00 09/02/15 10:41 Norvasc - GT 10 mg DAILY [facility] Administration Chlorhexidine Gluconate 15 ml 07/28/15 22:00 09/02/15 10:41 Peridex - MM 15 ml BID [facility] Administration Collagenase 1 applic 08/12/15 10:00 09/02/15 10:48 Santyl - TP 1 applic DAILY [facility] Administration Enoxaparin Sodium 40 mg 08/27/15 16:15 09/02/15 10:37 Lovenox - SQ 40 mg DAILY [facility] Administration Ibuprofen 200 mg 08/13/15 14:55 08/28/15 06:48 Motrin Oral Suspension - PO 200 mg Q6H PRN Administration FEVER Insulin Aspart 5 units 08/21/15 09:35 09/02/15 11:57 Novolog Vial SQ 5 units Q6HPO [facility] Administration Insulin Aspart 0 units 08/21/15 18:00 09/02/15 11:59 Novolog Vial SQ 2 units Q6HPO [facility] Administration Protocol Insulin Detemir 28 units 08/21/15 09:35 09/01/15 22:27 Levemir Vial SQ 28 units HS [facility] Administration Lisinopril 40 mg 08/20/15 10:00 09/02/15 10:41 Prinivil - GT 40 mg DAILY [facility] Administration Metoprolol Tartrate 5 mg 07/28/15 19:09 Lopressor Injection - IVPB Q6H PRN HYPERTENSION Metoprolol Tartrate 125 mg 08/21/15 09:35 09/02/15 10:40 Lopressor - GT 125 mg BID [facility] Administration Multivitamins 5 ml 07/31/15 15:38 09/02/15 10:43 Thera-Plus - GT 5 ml DAILY [facility] Administration Mupirocin 1 applic 08/11/15 22:00 09/02/15 10:47 Bactroban 2% Ointment - TP 1 applic BID [facility] Administration Ondansetron HCl 4 mg 07/28/15 19:09 Zofran Injection - IVPB Q6H PRN NAUSEA Pantoprazole Sodium 40 mg 08/01/15 10:00 09/02/15 10:42 Protonix Packets For Oral Suspension - GT 40 mg DAILY [facility] Administration Silver Sulfadiazine 1 applic 08/18/15 11:45 09/02/15 10:48 Silvadene - TP 1 applic DAILY [facility] Administration Objective: Vital Signs Period Temp Pulse Resp BP Sys/Santiago Pulse Ox Last 24 Hr 98.6 F-99.9 F 80-108 15-19 136-156/80-82 99-100 Physical Exam: General: No distress noted, following simple commands today HEENT: Trach in place, on vent Lungs: Mechanical breath sounds, no adventitious sounds Heart: RRR, S1S2 Abd: PEG in place. Rectal tube in place. Soft, non-tender, non-distended. Normoactive bowel sounds Ext: Warm, well-perfused. 2+ DP/PT bilaterally Neuro: Eye opening to verbal stimuli. Right side facial droop CBCD WBC 13.3 K/mm3 (4.0-10.0) H 09/02/15 06:30 RBC 2.88 M/mm3 (4.00-5.60) L 09/02/15 06:30 Hgb 8.4 GM/dL (11.7-16.9) L 09/02/15 06:30 Hct 25.4 % (35.4-49) L 09/02/15 06:30 MCV 88.4 fl (80-96) 09/02/15 06:30 MCHC 32.9 g/dl (32.0-35.9) 09/02/15 06:30 RDW 15.8 % (11.9-15.9) 09/02/15 06:30 Plt Count 256 K/MM3 (134-434) 09/02/15 06:30 MPV 8.7 fl (7.5-11.1) 09/02/15 06:30 CMP Sodium 141 mmol/L (136-145) 09/02/15 06:30 Potassium 3.8 mmol/L (3.5-5.1) 09/02/15 06:30 Chloride 107 mmol/L (98-107) 09/02/15 06:30 Carbon Dioxide 27 mmol/L (21-32) 09/02/15 06:30 Anion Gap 7 (8-16) L 09/02/15 06:30 BUN 18 mg/dL (7-18) 09/02/15 06:30 Creatinine 0.4 mg/dL (0.6-1.3) L D 09/02/15 06:30 Creat Clearance w eGFR > 60 (>60) 09/02/15 06:30 Random Glucose 154 mg/dL (74-106) H 09/02/15 06:30 Calcium 9.4 mg/dL (8.5-10.1) 09/02/15 06:30 Total Bilirubin 0.2 mg/dL (0.2-1.0) 09/02/15 06:30 AST 17 U/L (15-37) D 09/02/15 06:30 ALT 24 U/L (12-78) 09/02/15 06:30 Alkaline Phosphatase 104 U/L (45-117) 09/02/15 06:30 Total Protein 6.7 g/dl (6.4-8.2) 09/02/15 06:30 Albumin 2.6 g/dl (3.4-5.0) L 09/02/15 06:30 CARDIAC ENZYMES Creatine Kinase 62 IU/L (38-174) 06/28/15 09:35 Troponin I 0.07 ng/ml (0.03-0.5) D 07/09/15 05:00 Assessment: This is a 75 year old male with PMHx of HTN, IDDM, inguinal hernia who presented to the ED with diverticular bleed s/p R hemicolectomy with hospital course (day 65) 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 Plan: 1) Neurology: Acute CVA with anoxic brain injury - S/p trach placement 07/23 - Ventilatory dependent: /30/5 - Per neuro, no anticoagulation 2/2 GI bleeding - Passy-[place] Valve trial for about 10min, pulse ox remained 99%, patient was able to swallow 2x - Continue PMV while awake as tolerated - Appreciate Susanne Mckenzie consult - Appreciate neuro consult 2) ID: Persistent leukocytosis, febrile - UA negative, F/u urine culture - Blood culture, NGTD - Chest X-ray with bibasilar atelectasis - Low grade fever this AM, worsening leukocytosis: Will obtain CT chest, CTAP to r/o any infectious process - F/u ESR/CRP - Appreciate ID consult 3) Cardiology: HTN - Continue Lisinopril - Continue Metoprolol - Continue Amlodipine 4) GI: Diverticular bleed, s/p right hemicoletomy with PEG placement - Tolerating feeds well - Per dietary, free water at 175cc q3h C.diff - Completed course of Vancomycin on 08/26 5) Endocrine: IDDM - ISS q6h - BGM q6h - Levemir 28u sq qhs 6) Integumentary: Compromised skin integrity - Stage III sacrum - Stage II left eat - Turn and reposition q2h - Accuair mattress 7) F/E/N: - Tube feeds with free water q3h - Monitor electrolytes - Prostat bid - Multivitamin - Hypernatremia, resolved 8) Prophylaxis: - Lovenox 40mg sq daily - SCDs bilaterally 9) Dispo: - Discussed with Cammie GONZALEZ), working on long-term care facility placement CODE STATUS: DNR
--- NOTE | 2015-09-02 14:56 | PN ---
Progress Note (short form) - Note Progress Note: Progress Note PULM/CCM Patient Name: CRUZ LEE Date of : 1940 Patient Status: Inpatient Attending Provider: Yolis Arthur NAD on AC Mode of vent 30% FiO2. Intermittently opening eyes to command/moving right side. Intake & Output 08/30/15 08/31/15 09/01/15 09/02/15 23:59 23:59 23:59 23:59 Intake Total 1994 3350 1200 50 Balance 1994 3350 1200 50 Last Vital Signs Temp Pulse Resp BP Pulse Ox 97.3 F L 98 H 16 154/87 99 09/02/15 14:37 09/02/15 10:39 09/02/15 14:37 09/02/15 14:37 09/02/15 12:47 Active Medications Acetaminophen (Tylenol Oral Solution -) 650 mg GT Q6H PRN PRN Reason: FEVER Last Admin: 09/02/15 10:43 Dose: 650 mg Amino Acids (Prostat Sugar-Free Packet -) 30 ml GT BID [facility] Last Admin: 09/02/15 10:42 Dose: 30 ml Amlodipine Besylate (Norvasc -) 10 mg GT DAILY [facility] Last Admin: 09/02/15 10:41 Dose: 10 mg Chlorhexidine Gluconate (Peridex -) 15 ml MM BID [facility] Last Admin: 09/02/15 10:41 Dose: 15 ml Collagenase (Santyl -) 1 applic TP DAILY [facility] Last Admin: 09/02/15 10:48 Dose: 1 applic Enoxaparin Sodium (Lovenox -) 40 mg SQ DAILY [facility] Last Admin: 09/02/15 10:37 Dose: 40 mg Ibuprofen (Motrin Oral Suspension -) 200 mg PO Q6H PRN PRN Reason: FEVER Last Admin: 08/28/15 06:48 Dose: 200 mg Insulin Aspart (Novolog Vial) 5 units SQ Q6HPO [facility] Last Admin: 09/02/15 11:57 Dose: 5 units Insulin Aspart (Novolog Vial) 0 units SQ Q6HPO [facility] PRN Reason: Protocol Last Admin: 09/02/15 11:59 Dose: 2 units Insulin Detemir (Levemir Vial) 28 units SQ HS [facility] Last Admin: 09/01/15 22:27 Dose: 28 units Lisinopril (Prinivil -) 40 mg GT DAILY [facility] Last Admin: 09/02/15 10:41 Dose: 40 mg Metoprolol Tartrate (Lopressor Injection -) 5 mg IVPB Q6H PRN PRN Reason: HYPERTENSION Metoprolol Tartrate (Lopressor -) 125 mg GT BID [facility] Last Admin: 09/02/15 10:40 Dose: 125 mg Multivitamins (Thera-Plus -) 5 ml GT DAILY [facility] Last Admin: 09/02/15 10:43 Dose: 5 ml Mupirocin (Bactroban 2% Ointment -) 1 applic TP BID [facility] Last Admin: 09/02/15 10:47 Dose: 1 applic Ondansetron HCl (Zofran Injection -) 4 mg IVPB Q6H PRN PRN Reason: NAUSEA Pantoprazole Sodium (Protonix Packets For Oral Suspension -) 40 mg GT DAILY [facility] Last Admin: 09/02/15 10:42 Dose: 40 mg Silver Sulfadiazine (Silvadene -) 1 applic TP DAILY [facility] Last Admin: 09/02/15 10:48 Dose: 1 applic Gen: Trached, NAD Heart: S1S2 Lung: decreased breath sounds at the bases Abd: soft, (+) BS Ext: (+) edema Laboratory Results - last 24 hr 09/01/15 09/01/15 09/02/15 17:06 20:00 00:56 WBC RBC Hgb Hct MCV MCHC RDW Plt Count MPV Neutrophils % Lymphocytes % Monocytes % Eosinophils % Basophils % Sodium Potassium Chloride Carbon Dioxide Anion Gap BUN Creatinine Creat Clearance w eGFR POC Glucometer 162 221 Random Glucose Calcium Total Bilirubin AST ALT Alkaline Phosphatase Total Protein Albumin Triglycerides Cholesterol Total LDL Cholesterol HDL Cholesterol Urine Color Yellow Urine Appearance Slcloudy Urine pH 5.0 Ur Specific [place] 1.021 Urine Protein Negative Urine Glucose (UA) Negative Urine Ketones Negative Urine Blood Negative Urine Nitrite Negative Urine Bilirubin Negative Urine Urobilinogen Negative Ur Leukocyte Esterase Negative 09/02/15 09/02/15 09/02/15 06:28 06:30 11:42 WBC 13.3 H RBC 2.88 L Hgb 8.4 L Hct 25.4 L MCV 88.4 MCHC 32.9 RDW 15.8 Plt Count 256 MPV 8.7 Neutrophils % 80.0 Lymphocytes % 11.7 Monocytes % 5.0 Eosinophils % 2.7 Basophils % 0.6 Sodium 141 Potassium 3.8 Chloride 107 Carbon Dioxide 27 Anion Gap 7 L BUN 18 Creatinine 0.4 L D Creat Clearance w eGFR > 60 POC Glucometer 192 167 Random Glucose 154 H Calcium 9.4 Total Bilirubin 0.2 AST 17 D ALT 24 Alkaline Phosphatase 104 Total Protein 6.7 Albumin 2.6 L Triglycerides 143 D Cholesterol 106 D Total LDL Cholesterol 66 HDL Cholesterol 26 L D Urine Color Urine Appearance Urine pH Ur Specific [place] Urine Protein Urine Glucose (UA) Urine Ketones Urine Blood Urine Nitrite Urine Bilirubin Urine Urobilinogen Ur Leukocyte Esterase IMP: Acute Brainstem CVA S/P Right Hemicoletomy due to Acute Lower Diverticular GI Bleed Acute Blood Loss Anemia Acute Respiratory Failure Pneumonia likely aspiration HTN DM CKD C diff Ag (+) PLAN: - Enteral feeds as tolerated - DVT/GI prophylaxis - Wean as mental status allows - D/C Planning Dr Agosto
--- NOTE | 2015-09-02 16:51 | PN ---
Progress Note (short form) - Note Progress Note: lethargic asked to f/u for continued intermittent fevers s/p right hemicolectomy 06/29 s/p trach 07/23 s/p gt 07/30 continued intermittent fevers Vital Signs Period Temp Pulse Resp BP Sys/Santiago Pulse Ox Last 24 Hr 97.3 F-99.9 F 91-108 13-19 136-156/80-87 99-100 cor-rrr lungs decreased bs at bases abd soft,nt ext no edema healing sacral ulcer cxray bibasilar atelectasis CBC, BMP 09/02/15 06:30 09/02/15 06:30 lfts normal Microbiology 09/01/15 10:10 Urine Culture - Final Urine - Urine - Catheterized 09/01/15 08:53 Blood Culture - Preliminary Blood - Peripheral Venous NO GROWTH OBTAINED AFTER 24 HOURS, INCUBATION TO CONTINUE FOR 4 DAYS. 09/01/15 08:53 Blood Culture - Preliminary Blood - Peripheral Venous NO GROWTH OBTAINED AFTER 24 HOURS, INCUBATION TO CONTINUE FOR 4 DAYS. Current Medications Acetaminophen (Tylenol Oral Solution -) 650 mg GT Q6H PRN PRN Reason: FEVER Last Admin: 09/02/15 10:43 Dose: 650 mg Amino Acids (Prostat Sugar-Free Packet -) 30 ml GT BID [facility] Last Admin: 09/02/15 10:42 Dose: 30 ml Amlodipine Besylate (Norvasc -) 10 mg GT DAILY [facility] Last Admin: 09/02/15 10:41 Dose: 10 mg Chlorhexidine Gluconate (Peridex -) 15 ml MM BID [facility] Last Admin: 09/02/15 10:41 Dose: 15 ml Collagenase (Santyl -) 1 applic TP DAILY [facility] Last Admin: 09/02/15 10:48 Dose: 1 applic Enoxaparin Sodium (Lovenox -) 40 mg SQ DAILY [facility] Last Admin: 09/02/15 10:37 Dose: 40 mg Ibuprofen (Motrin Oral Suspension -) 200 mg PO Q6H PRN PRN Reason: FEVER Last Admin: 08/28/15 06:48 Dose: 200 mg Insulin Aspart (Novolog Vial) 5 units SQ Q6HPO [facility] Last Admin: 09/02/15 11:57 Dose: 5 units Insulin Aspart (Novolog Vial) 0 units SQ Q6HPO [facility] PRN Reason: Protocol Last Admin: 09/02/15 11:59 Dose: 2 units Insulin Detemir (Levemir Vial) 28 units SQ HS [facility] Last Admin: 09/01/15 22:27 Dose: 28 units Lisinopril (Prinivil -) 40 mg GT DAILY [facility] Last Admin: 09/02/15 10:41 Dose: 40 mg Metoprolol Tartrate (Lopressor Injection -) 5 mg IVPB Q6H PRN PRN Reason: HYPERTENSION Metoprolol Tartrate (Lopressor -) 125 mg GT BID [facility] Last Admin: 09/02/15 10:40 Dose: 125 mg Multivitamins (Thera-Plus -) 5 ml GT DAILY [facility] Last Admin: 09/02/15 10:43 Dose: 5 ml Mupirocin (Bactroban 2% Ointment -) 1 applic TP BID [facility] Last Admin: 09/02/15 10:47 Dose: 1 applic Ondansetron HCl (Zofran Injection -) 4 mg IVPB Q6H PRN PRN Reason: NAUSEA Pantoprazole Sodium (Protonix Packets For Oral Suspension -) 40 mg GT DAILY [facility] Last Admin: 09/02/15 10:42 Dose: 40 mg Silver Sulfadiazine (Silvadene -) 1 applic TP DAILY [facility] Last Admin: 09/02/15 10:48 Dose: 1 applic a/p FUO- check esr/crp multiple negative cultures consider CT scan chest abd pelvis for completeness to r/o any infectious source observe off antibiotics
[2015-09-02] MEDS: INSULIN DETEMIR 100 UNITS/ML MDV SQ SCH (21:16)
[2015-09-03] MEDS: IBUPROFEN 100 MG/5 ML UNIT DOSE CUPS PO PRN (02:05)
[2015-09-03] MEDS: INSULIN (NOVOLOG) ASPART 100 UNITS/ML 10ML VIAL SQ SCH ×6 (06:16→17:21)
[2015-09-03 08:33] LABS: BASOPHIL 0.4 % (0-2.0); EOSINOPHIL 3.5 % (0-4.5); MCHC 32.8 g/dl (32.0-35.9); MEAN CELL VOLUME 88.3 fl (80-96); MEAN PLT VOLUME 8.6 fl (7.5-11.1); NEUTROPHILS 78.8 % (42.8-82.8); PLATELET COUNT 264 K/MM3 (134-434); RDW 15.5 % (11.9-15.9); WHITE BLOOD COUNT 12.4 K/mm3 (4.0-10.0)
[2015-09-03 09:03] LABS: ALBUMIN 2.5 g/dl (3.4-5.0); ANION GAP 8 (8-16); C-REACTIVE PROTEIN 2.1 MG/DL (0.00-0.3); CALCIUM 9.5 mg/dL (8.5-10.1); CO2 29 mmol/L (21-32); CREATININE 0.3 mg/dL (0.6-1.3); GLUCOSE,RANDOM 136 mg/dL (74-106); SGOT/AST 11 U/L (15-37); SGPT/ALT 22 U/L (12-78)
[2015-09-03 09:05] LABS: ALK PHOS 101 U/L (45-117); BILIRUBIN,TOTAL 0.2 mg/dL (0.2-1.0); TOT PROT 6.4 g/dl (6.4-8.2)
--- NOTE | 2015-09-03 10:27 | PN ---
Progress Note (short form) - Note Progress Note: SUBJECTIVE: Patient seen and examined. No s/s of pain. Squeezes hand on command. OBJECTIVE Vital Signs Period Temp Pulse Resp BP Sys/Santiago Pulse Ox Last 24 Hr 97.3 F-101.2 F 86-98 10-16 139-155/70-87 99-99 GENERAL: In no apparent distress. HEAD: Normal with no signs of trauma. EYES: Pupils equal, round and reactive to light, sclera anicteric, conjunctiva clear. ENT: Ears normal, nares patent. Dry mucous membranes. NECK: No lymphadenopathy, JVD, or masses. LUNGS: Mechanical breath sounds. No wheezes, rhonchi or crackles. HEART: Regular rate and rhythm, normal S1 and S2 without murmur, rub or gallop. ABDOMEN: Soft, nontender, normoactive bowel sounds. No guarding, no rebound. No masses. EXTREMITIES: 2+ edema RUE and RLE; 2+pulses, warm, well-perfused. NEUROLOGICAL: Eyes open today. Squeezes right hand to command. Laboratory Results - last 24 hr 09/02/15 09/02/15 09/02/15 11:42 17:28 21:15 WBC RBC Hgb Hct MCV MCHC RDW Plt Count MPV Neutrophils % Lymphocytes % Monocytes % Eosinophils % Basophils % Sodium Potassium Chloride Carbon Dioxide Anion Gap BUN Creatinine Creat Clearance w eGFR POC Glucometer 167 164 178 Random Glucose Calcium Total Bilirubin AST ALT Alkaline Phosphatase C-Reactive Protein Total Protein Albumin 09/02/15 09/03/15 09/03/15 23:32 06:15 07:30 WBC 12.4 H RBC 2.90 L Hgb 8.4 L Hct 25.6 L MCV 88.3 MCHC 32.8 RDW 15.5 Plt Count 264 MPV 8.6 Neutrophils % 78.8 Lymphocytes % 12.1 Monocytes % 5.2 Eosinophils % 3.5 Basophils % 0.4 Sodium 144 Potassium 3.6 Chloride 107 Carbon Dioxide 29 Anion Gap 8 BUN 18 Creatinine 0.3 L D Creat Clearance w eGFR > 60 POC Glucometer 166 171 Random Glucose 136 H Calcium 9.5 Total Bilirubin 0.2 AST 11 L D ALT 22 Alkaline Phosphatase 101 C-Reactive Protein 2.1 H Total Protein 6.4 Albumin 2.5 L Current Medications Generic Name Dose Route Start Last Admin Trade Name Freq PRN Reason Stop Dose Admin Acetaminophen 650 mg 07/31/15 15:42 09/02/15 10:43 Tylenol Oral Solution - GT 650 mg Q6H PRN Administration FEVER Amino Acids 30 ml 08/11/15 22:00 09/02/15 21:18 Prostat Sugar-Free Packet - GT 30 ml BID [facility] Administration Amlodipine Besylate 10 mg 08/01/15 10:00 09/02/15 10:41 Norvasc - GT 10 mg DAILY [facility] Administration Chlorhexidine Gluconate 15 ml 07/28/15 22:00 09/02/15 21:18 Peridex - MM 15 ml BID [facility] Administration Collagenase 1 applic 08/12/15 10:00 09/02/15 10:48 Santyl - TP 1 applic DAILY [facility] Administration Enoxaparin Sodium 40 mg 08/27/15 16:15 09/02/15 10:37 Lovenox - SQ 40 mg DAILY [facility] Administration Ibuprofen 200 mg 08/13/15 14:55 09/03/15 02:05 Motrin Oral Suspension - PO 200 mg Q6H PRN Administration FEVER Insulin Aspart 5 units 08/21/15 09:35 09/03/15 06:16 Novolog Vial SQ 5 units Q6HPO [facility] Administration Insulin Aspart 0 units 08/21/15 18:00 09/03/15 06:17 Novolog Vial SQ 2 units Q6HPO [facility] Administration Protocol Insulin Detemir 28 units 08/21/15 09:35 09/02/15 21:16 Levemir Vial SQ 28 units HS [facility] Administration Lisinopril 40 mg 08/20/15 10:00 09/02/15 10:41 Prinivil - GT 40 mg DAILY [facility] Administration Metoprolol Tartrate 5 mg 07/28/15 19:09 Lopressor Injection - IVPB Q6H PRN HYPERTENSION Metoprolol Tartrate 125 mg 08/21/15 09:35 09/02/15 21:23 Lopressor - GT 125 mg BID [facility] Administration Multivitamins 5 ml 07/31/15 15:38 09/02/15 10:43 Thera-Plus - GT 5 ml DAILY [facility] Administration Mupirocin 1 applic 08/11/15 22:00 09/02/15 21:19 Bactroban 2% Ointment - TP 1 applic BID [facility] Administration Ondansetron HCl 4 mg 07/28/15 19:09 Zofran Injection - IVPB Q6H PRN NAUSEA Pantoprazole Sodium 40 mg 08/01/15 10:00 09/02/15 10:42 Protonix Packets For Oral Suspension - GT 40 mg DAILY [facility] Administration Silver Sulfadiazine 1 applic 08/18/15 11:45 09/02/15 10:48 Silvadene - TP 1 applic DAILY [facility] Administration A/P: This is hospital day #68 for this 75 year-old male with HTN, IDDM, inguinal hernia, and diverticular bleed s/p R hemicolectomy, 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 Anoxic brain injury s/p brainstem CVA Persistent fevers of unknown origin Persistent leukocytosis --fevers are likely neurogenic secondary to anoxic brain injury, but CT chest , abdomen, pelvis today per ID recommendation to r/o infectious source --esr, crp pending Hypertension --continue lisinopril, metoprolol, amlodipine Respiratory failure secondary to anoxic brain injury CPAP trial --s/p trach, vent dependent; last documented pressure support trial was on by SOLE Koenig; order entered 08/29 for respiratory to perform daily pressure support trials and document if done or not done; no entries noted; will discuss with [employer] supervisor of respiratory s/p diverticular bleed, right hemicolectomy --s/p PEG --tolerating feeds Hypernatremia --Na 144, free water via feeding tube pump @ 45cc's per hour; check Na level in am C. difficile colitis, ruled out IDDM --Levemir --Novolog standing and sliding scale --fingersticks Multiple pressure ulcers -- Stage III sacrum healing, Stage II left ear healing -- collagenase to Stage III slough area, silvadene to Stage II left ear --turn and position q2h FLUIDS/ELECTROLYTES/NUTRITION FLUIDS: 45cc free water hourly via tube feeds pump ELECTROLYTES: replete as indicated NUTRITION: Glucerna tube feeds at goal DVT Prophylaxis --SCDs, lovenox DISPO: Placement issue due to lack of any insurance. Advised case management is working on this. Needs transfer to long-term care facility. DNR.
[2015-09-03] MEDS: LISINOPRIL 20 MG TABLET (FP) GT SCH (11:21)
[2015-09-03] MEDS: METOPROLOL TARTRATE 50 MG TABLET (FP) GT SCH ×2 (11:21→23:51)
[2015-09-03] MEDS: amLODIPine BESYLATE 10 MG TABLET (FP) GT SCH (11:21)
[2015-09-03] MEDS: CHLORHEXIDINE GLUCONATE 0.12% 15ML CUP MM SCH ×2 (11:22→23:51)
[2015-09-03] MEDS: AMINO ACIDS/PROTEIN HYDROLYS SUGAR-FREE 30 ML PACKET GT SCH (11:22)
[2015-09-03] MEDS: ENOXAPARIN NA (PORCINE) 40 MG/0.4 ML DISP.SYRIN SQ SCH (11:22)
[2015-09-03] MEDS: PANTOPRAZOLE SOD 40 MG SUSPENSION PACKET GT SCH (11:23)
[2015-09-03] MEDS: MULTIVITAMINS THERAPEUTIC GT SCH (11:23)
[2015-09-03] MEDS: MUPIROCIN 2% TOPICAL OINTMENT 22 GM TUBE TP SCH (12:31)
[2015-09-03] MEDS: SILVER SULFADIAZINE 1% TOP CREAM 50 GM JAR TP SCH (12:32)
[2015-09-03] MEDS: COLLAGENASE CLOSTRIDIUM HIST. 30 GRAMS TUBE TP SCH (12:32)
--- NOTE | 2015-09-03 17:12 | PN ---
Progress Note (short form) - Note Progress Note: PULMONARY CHART REVIEWED PATIENT EXAMINED VENT SETTINGS NOTED/ NAD on AC Mode of vent 30% FiO2. Intermittently opening eyes to command/moving right side. TEMP CURVE PROBLEMATIC CLINICAL CONDITION UNCHANGED A/P Respiratory Failure s/p Tracheostomy Acute CVA/Anoxic Brain Injury S/P Acute Lower Diverticular GI Bleed Acute Blood Loss Anemia s/p Pneumonia HTN DM CKD + C Diff Ag Fever - continue vent support/would keep on a/c as weaning off vent given neurological status does not seem to be an option. - enteral feeds - DVT/GI prophylaxis - Prognosis poor - vent snf placement - ID suggests ct abd/pelvis Demario BANUELOS MD
--- NOTE | 2015-09-03 19:41 | HOSP ---
Subjective - Review of Symptoms Subjective: I called pt daughter and informed her of the CT findings of active bleeding and this is an urgent situation that will eventually need an IR procedure . daughter, initial reaction she did not want aggressive procedures because her dad started to get better. I explained that if this bleeding continues it might lead to . and she understands that. I explained that radiologist will discuss the procedure further with her , and she can make that decision at that time. primary team , has contacted radiologist . and blood transfusin ordered. Physical Examination Vital Signs: Vital Signs Temperature 99.4 F 09/03/15 18:58 Pulse Rate 90 09/03/15 18:58 Respiratory Rate 12 09/03/15 19:16 Blood Pressure 147/81 09/03/15 18:58 O2 Sat by Pulse Oximetry (%) 98 09/03/15 11:13
[2015-09-03 19:42] LABS: BASOPHIL 0.4 % (0-2.0); EOSINOPHIL 2.7 % (0-4.5); MCH 28.1 pg (25.7-33.7); MCHC 31.3 g/dl (32.0-35.9); MEAN CELL VOLUME 89.9 fl (80-96); MEAN PLT VOLUME 8.6 fl (7.5-11.1); NEUTROPHILS 78.1 % (42.8-82.8); PLATELET COUNT 277 K/MM3 (134-434); RDW 15.7 % (11.9-15.9); WHITE BLOOD COUNT 12.8 K/mm3 (4.0-10.0)
[2015-09-03 19:48] LABS: INR 1.32 (0.86-1.14); PROTHROMBIN TIME (PATIENT) 14.2 SEC (9.5-11.7)
[2015-09-03 19:50] LABS: ACTIVATED PTT 28.9 SECONDS (23.5-38.3)
[2015-09-03 19:57] LABS: ALBUMIN 2.5 g/dl (3.4-5.0); ALK PHOS 90 U/L (45-117); ANION GAP 4 (8-16); BILIRUBIN,TOTAL 0.3 mg/dL (0.2-1.0); CALCIUM 9.3 mg/dL (8.5-10.1); CO2 31 mmol/L (21-32); CREATININE 0.4 mg/dL (0.6-1.3); GLUCOSE,RANDOM 80 mg/dL (74-106); SGOT/AST 17 U/L (15-37); SGPT/ALT 22 U/L (12-78); TOT PROT 6.4 g/dl (6.4-8.2)
[2015-09-03] MEDS: INSULIN DETEMIR 100 UNITS/ML MDV SQ SCH (23:52)
[2015-09-03] MEDS: MUPIROCIN 2% TOPICAL OINTMENT FOR DECOLONIZATION NS SCH (23:52)
[2015-09-04 03:16] LABS: BASOPHIL 0.5 % (0-2.0); EOSINOPHIL 1.6 % (0-4.5); MCH 28.6 pg (25.7-33.7); MCHC 31.9 g/dl (32.0-35.9); MEAN CELL VOLUME 89.5 fl (80-96); MEAN PLT VOLUME 9.2 fl (7.5-11.1); NEUTROPHILS 84.1 % (42.8-82.8); PLATELET COUNT 244 K/MM3 (134-434); RDW 15.9 % (11.9-15.9)
[2015-09-04] MEDS: INSULIN (NOVOLOG) ASPART 100 UNITS/ML 10ML VIAL SQ SCH ×8 (07:55→17:21)
--- NOTE | 2015-09-04 08:50 | PN ---
Progress Note, Physician History of Present Illness: Events noted CT A/P done for persistant fevers showed an active GI bleed. Now in ICU s/p IR procedure Awake, no acute distress Still with intermittant fever, elevated WBC. Cultures negative CT chest showed atelectasis - Current Medication List Current Medications: Active Medications Acetaminophen (Tylenol Oral Solution -) 650 mg GT Q6H PRN PRN Reason: FEVER Last Admin: 09/02/15 10:43 Dose: 650 mg Amlodipine Besylate (Norvasc -) 10 mg GT DAILY [facility] Last Admin: 09/03/15 11:21 Dose: 10 mg Chlorhexidine Gluconate (Peridex -) 15 ml MM BID [facility] Last Admin: 09/03/15 23:51 Dose: 15 ml Chlorhexidine Gluconate (Hibiclens For Decolonization -) 1 applic TP HS [facility] Last Admin: 09/03/15 23:51 Dose: 1 applic Collagenase (Santyl -) 1 applic TP DAILY [facility] Last Admin: 09/03/15 12:32 Dose: 1 applic Ibuprofen (Motrin Oral Suspension -) 200 mg PO Q6H PRN PRN Reason: FEVER Last Admin: 09/03/15 02:05 Dose: 200 mg Insulin Aspart (Novolog Vial) 5 units SQ Q6HPO [facility] Last Admin: 09/04/15 07:55 Dose: Not Given Insulin Aspart (Novolog Vial) 0 units SQ Q6HPO [facility] PRN Reason: Protocol Last Admin: 09/04/15 07:55 Dose: Not Given Insulin Detemir (Levemir Vial) 28 units SQ [facility] Last Admin: 09/03/15 23:52 Dose: 28 units Lisinopril (Prinivil -) 40 mg GT DAILY [facility] Last Admin: 09/03/15 11:21 Dose: 40 mg Metoprolol Tartrate (Lopressor Injection -) 5 mg IVPB Q6H PRN PRN Reason: HYPERTENSION Metoprolol Tartrate (Lopressor -) 125 mg GT BID [facility] Last Admin: 09/03/15 23:51 Dose: 125 mg Multivitamins (Thera-Plus -) 5 ml GT DAILY [facility] Last Admin: 09/03/15 11:23 Dose: 5 ml Mupirocin (Bactroban Ointment (For Decolonization) -) 1 applic NS BID [facility] Stop: 09/08/15 21:59 Last Admin: 09/03/15 23:52 Dose: 1 applic Ondansetron HCl (Zofran Injection -) 4 mg IVPB Q6H PRN PRN Reason: NAUSEA Pantoprazole Sodium (Protonix Packets For Oral Suspension -) 40 mg GT DAILY [facility] Last Admin: 09/03/15 11:23 Dose: 40 mg Silver Sulfadiazine (Silvadene -) 1 applic TP DAILY [facility] Last Admin: 09/03/15 12:32 Dose: 1 applic - Objective Vital Signs: Vital Signs Temperature 99.4 F 09/03/15 22:00 Pulse Rate 82 09/04/15 05:00 Respiratory Rate 16 09/04/15 07:19 Blood Pressure 151/76 09/04/15 05:00 O2 Sat by Pulse Oximetry (%) 100 09/03/15 22:17 Constitutional: Yes: No Distress Cardiovascular: Yes: Regular Rate and Rhythm, S1, S2 Respiratory: Yes: Diminished Gastrointestinal: Yes: Normal Bowel Sounds, Soft. No: Tenderness Edema: Yes Labs: CBC, BMP 09/04/15 02:15 09/03/15 19:20 INR, PTT INR 1.32 (0.86-1.14) H 09/03/15 19:20 Assessment/Plan S/P GI bleed Fever/ leukocytosis Hx R hemicolectomy for diverticular bleed S/P CVA Resp failure Hx C difficile Continue ICU monitoring Reculture for persistant temp Observe off antibiotics- hesitant to treat in light of absence of clear infectious focus, negative cultures, and protracted C difficile
--- NOTE | 2015-09-04 09:19 | PN ---
Progress Note (short form) - Note Progress Note: Progress Note: Progress Note PULM/CCM Patient Name: CRUZ LEE Date of : 1940 Patient Status: Inpatient Attending Provider: Yolis Arthur Pt seen and examined in ICU 24HR: illiac artery bleed, went to IR unclear where coiled or gel foam embo but crit stable dressing at R groin with small hematoma, no active bleeding Vital Signs Temp 99.4 F 09/03/15 22:00 Pulse 82 09/04/15 05:00 Resp 16 09/04/15 07:19 BP 151/76 09/04/15 05:00 Pulse Ox 100 09/03/15 22:17 Intake & Output 09/03/15 09/03/15 09/04/15 11:59 23:59 11:59 Intake Total 450 500 Balance 450 500 Weight 75.1 kg Intake: IV 500 Normal Saline - 1,000 ml 500 @ 1000 mls/hr IV ASDIR STA Rx#:[id number] Tube Feeding 250 Tube Irrigant 200 Other: Voiding Method Diaper Indwelling Catheter # Unmeasured Voids Void 1 2 Weight Measurement Method Built in [facility] Active Medications Acetaminophen (Tylenol Oral Solution -) 650 mg GT Q6H PRN PRN Reason: FEVER Last Admin: 09/02/15 10:43 Dose: 650 mg Amlodipine Besylate (Norvasc -) 10 mg GT DAILY [facility] Last Admin: 09/03/15 11:21 Dose: 10 mg Chlorhexidine Gluconate (Peridex -) 15 ml MM BID [facility] Last Admin: 09/03/15 23:51 Dose: 15 ml Chlorhexidine Gluconate (Hibiclens For Decolonization -) 1 applic TP HS [facility] Last Admin: 09/03/15 23:51 Dose: 1 applic Collagenase (Santyl -) 1 applic TP DAILY [facility] Last Admin: 09/03/15 12:32 Dose: 1 applic Ibuprofen (Motrin Oral Suspension -) 200 mg PO Q6H PRN PRN Reason: FEVER Last Admin: 09/03/15 02:05 Dose: 200 mg Insulin Aspart (Novolog Vial) 5 units SQ Q6HPO [facility] Last Admin: 09/04/15 07:55 Dose: Not Given Insulin Aspart (Novolog Vial) 0 units SQ Q6HPO [facility] PRN Reason: Protocol Last Admin: 09/04/15 07:55 Dose: Not Given Insulin Detemir (Levemir Vial) 28 units SQ HS [facility] Last Admin: 09/03/15 23:52 Dose: 28 units Lisinopril (Prinivil -) 40 mg GT DAILY [facility] Last Admin: 09/03/15 11:21 Dose: 40 mg Metoprolol Tartrate (Lopressor Injection -) 5 mg IVPB Q6H PRN PRN Reason: HYPERTENSION Metoprolol Tartrate (Lopressor -) 125 mg GT BID [facility] Last Admin: 09/03/15 23:51 Dose: 125 mg Multivitamins (Thera-Plus -) 5 ml GT DAILY [facility] Last Admin: 09/03/15 11:23 Dose: 5 ml Mupirocin (Bactroban Ointment (For Decolonization) -) 1 applic NS BID [facility] Stop: 09/08/15 21:59 Last Admin: 09/03/15 23:52 Dose: 1 applic Ondansetron HCl (Zofran Injection -) 4 mg IVPB Q6H PRN PRN Reason: NAUSEA Pantoprazole Sodium (Protonix Packets For Oral Suspension -) 40 mg GT DAILY [facility] Last Admin: 09/03/15 11:23 Dose: 40 mg Silver Sulfadiazine (Silvadene -) 1 applic TP DAILY [facility] Last Admin: 09/03/15 12:32 Dose: 1 applic Gen: Trached, NAD Heart: S1S2 Lung: decreased breath sounds at the bases Abd: soft, (+) BS Groin: dressed access site R groin with small hematoma, no active bleeding Ext: (+) edema CBC, BMP 09/04/15 02:15 09/03/15 19:20 IMP: Illiac bleed s/p IR procedure with apparent hemostasis achieved Acute Brainstem CVA S/P Right Hemicoletomy due to Acute Lower Diverticular GI Bleed Acute Blood Loss Anemia Acute Respiratory Failure Pneumonia likely aspiration HTN DM CKD C diff Ag (+) PLAN: - trend CBC, monitor hematoma - Enteral feeds as tolerated - DVT/GI prophylaxis - Wean as mental status allows - D/C Planning - ID following, cxl off abx, monitor fever curve/wbc -ok for floor Luis Berry [facility] [id number] 35min CCT Problem List - Problems (1) Anoxic brain damage Code: G93.1 (2) Fever Code: R50.9 (3) 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
[2015-09-04] MEDS: PANTOPRAZOLE SOD 40 MG SUSPENSION PACKET GT SCH (09:52)
[2015-09-04] MEDS: METOPROLOL TARTRATE 50 MG TABLET (FP) GT SCH ×2 (09:52→21:56)
[2015-09-04] MEDS: MULTIVITAMINS THERAPEUTIC GT SCH (09:53)
[2015-09-04] MEDS: SILVER SULFADIAZINE 1% TOP CREAM 50 GM JAR TP SCH (09:53)
[2015-09-04] MEDS: COLLAGENASE CLOSTRIDIUM HIST. 30 GRAMS TUBE TP SCH (09:53)
[2015-09-04] MEDS: MUPIROCIN 2% TOPICAL OINTMENT FOR DECOLONIZATION NS SCH ×2 (09:57→21:55)
[2015-09-04] MEDS: amLODIPine BESYLATE 10 MG TABLET (FP) GT SCH (09:57)
[2015-09-04] MEDS: LISINOPRIL 20 MG TABLET (FP) GT SCH (09:57)
[2015-09-04] MEDS: CHLORHEXIDINE GLUCONATE 0.12% 15ML CUP MM SCH ×2 (09:57→21:56)
--- NOTE | 2015-09-04 18:21 | PN ---
Progress Note (short form) - Note Progress Note: 24 hour events: --Sent for CT imaging abdomen/pelvis to see if abscess/collection as possible soure of persistent fevers and leukocytosis; no abscess or collection seen but active bleed from the left internal illiac artery into the left medial gluteus muscle; IR notified,embolization performed and coils placed; f/u imaging showed reduction of flow but no dense occlusion; patient tolerated well, remained hemodynamically stable throughout, no transfusion required SUBJECTIVE: Patient seen and examined. No s/s of pain. Not opening eyes or following commands today. OBJECTIVE Vital Signs Period Temp Pulse Resp BP Sys/Santiago Pulse Ox Last 24 Hr 99.2 F-99.4 F 74-123 10-19 142-179/65-87 95-100 GENERAL: In no apparent distress. HEAD: Normal with no signs of trauma. EYES: Pupils equal, round and reactive to light, sclera anicteric, conjunctiva clear. ENT: Ears normal, nares patent. Dry mucous membranes. NECK: No lymphadenopathy, JVD, or masses. LUNGS: Mechanical breath sounds. No wheezes, rhonchi or crackles. HEART: Regular rate and rhythm, normal S1 and S2 without murmur, rub or gallop. ABDOMEN: Soft, nontender, normoactive bowel sounds. No guarding, no rebound. No masses. EXTREMITIES: dressing at right groin with small hematoma, c/d/i NEUROLOGICAL: Not following commands Laboratory Results - last 24 hr 09/03/15 09/03/15 09/03/15 18:48 19:00 19:20 WBC 12.8 H RBC 2.89 L Hgb 8.1 L Hct 26.0 L MCV 89.9 MCHC 31.3 L RDW 15.7 Plt Count 277 MPV 8.6 Neutrophils % 78.1 Lymphocytes % 13.8 Monocytes % 5.0 Eosinophils % 2.7 Basophils % 0.4 INR 1.32 H PTT (Actin FS) 28.9 Sodium 139 Potassium 3.6 Chloride 104 Carbon Dioxide 31 Anion Gap 4 L BUN 16 Creatinine 0.4 L D Creat Clearance w eGFR > 60 POC Glucometer Random Glucose 80 D Lactic Acid 1.561 Calcium 9.3 Total Bilirubin 0.3 D AST 17 D ALT 22 Alkaline Phosphatase 90 Total Protein 6.4 Albumin 2.5 L Blood Type O POSITIVE Antibody Screen Negative Crossmatch See Detail See Detail 11/07/15 11/07/15 11/07/15 00:15 02:15 07:41 WBC 14.0 H RBC 2.93 L Hgb 8.4 L Hct 26.2 L MCV 89.5 MCHC 31.9 L RDW 15.9 Plt Count 244 MPV 9.2 Neutrophils % 84.1 H Lymphocytes % 9.2 D Monocytes % 4.6 Eosinophils % 1.6 Basophils % 0.5 INR PTT (Actin FS) Sodium Potassium Chloride Carbon Dioxide Anion Gap BUN Creatinine Creat Clearance w eGFR POC Glucometer 145.92702 99.54087 Random Glucose Lactic Acid Calcium Total Bilirubin AST ALT Alkaline Phosphatase Total Protein Albumin Blood Type Antibody Screen Crossmatch Current Medications Generic Name Dose Route Start Last Admin Trade Name Freq PRN Reason Stop Dose Admin Acetaminophen 650 mg 07/31/15 15:42 09/02/15 10:43 Tylenol Oral Solution - GT 650 mg Q6H PRN Administration FEVER Amlodipine Besylate 10 mg 08/01/15 10:00 09/04/15 09:57 Norvasc - GT 10 mg DAILY [facility] Administration Chlorhexidine Gluconate 15 ml 07/28/15 22:00 09/04/15 09:57 Peridex - MM 15 ml BID [facility] Administration Chlorhexidine Gluconate 1 applic 09/03/15 22:00 09/03/15 23:51 Hibiclens For Decolonization - TP 1 applic HS [facility] Administration Collagenase 1 applic 08/12/15 10:00 09/04/15 09:53 Santyl - TP 1 applic DAILY [facility] Administration Ibuprofen 200 mg 08/13/15 14:55 09/03/15 02:05 Motrin Oral Suspension - PO 200 mg Q6H PRN Administration FEVER Insulin Aspart 5 units 08/21/15 09:35 09/04/15 17:19 Novolog Vial SQ 5 units Q6HPO [facility] Administration Insulin Aspart 0 units 08/21/15 18:00 09/04/15 17:21 Novolog Vial SQ Not Given Q6HPO [facility] Protocol Insulin Detemir 28 units 08/21/15 09:35 09/03/15 23:52 Levemir Vial SQ 28 units HS [facility] Administration Lisinopril 40 mg 08/20/15 10:00 09/04/15 09:57 Prinivil - GT 40 mg DAILY [facility] Administration Metoprolol Tartrate 5 mg 07/28/15 19:09 Lopressor Injection - IVPB Q6H PRN HYPERTENSION Metoprolol Tartrate 125 mg 08/21/15 09:35 09/04/15 09:52 Lopressor - GT 125 mg BID [facility] Administration Multivitamins 5 ml 07/31/15 15:38 09/04/15 09:53 Thera-Plus - GT 5 ml DAILY [facility] Administration Mupirocin 1 applic 09/03/15 22:00 09/04/15 09:57 Bactroban Ointment (For Decolonization) - NS 09/08/15 21:59 1 applic BID [facility] Administration Ondansetron HCl 4 mg 07/28/15 19:09 Zofran Injection - IVPB Q6H PRN NAUSEA Pantoprazole Sodium 40 mg 08/01/15 10:00 09/04/15 09:52 Protonix Packets For Oral Suspension - GT 40 mg DAILY [facility] Administration Silver Sulfadiazine 1 applic 08/18/15 11:45 09/04/15 09:53 Silvadene - TP 1 applic DAILY [facility] Administration A/P: This is hospital day #69 for this 75 year-old male with HTN, IDDM, inguinal hernia, and diverticular bleed s/p R hemicolectomy, 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 s/p trach and PEG. S/p embolization of left internal illiac artery bleed on 09/03. Anoxic brain injury s/p brainstem CVA --intermittently able to follow minimal commands to open eyes, squeeze right hand Persistent fevers of unknown origin Persistent leukocytosis --multiple rounds of cultures negative --[place] CT scans yesterday show no obvious source --esr, crp mildly elevated Hypertension --continue lisinopril, metoprolol, amlodipine Respiratory failure secondary to anoxic brain injury CPAP trial --s/p trach, vent dependent; last documented pressure support trial was on by SOLE Koenig; order entered 08/29 for respiratory to perform daily pressure support trials and document if done or not done; no entries noted; will discuss with [employer] supervisor [employer] of respiratory s/p diverticular bleed, right hemicolectomy --s/p PEG --tolerating feeds Hypernatremia --Na 139 (received 2L+ of NS yesterday in anticipation of embolization/ concern for active bleed); continue frree water via feeding tube pump @ 45cc's per hour; check Na level in am C. difficile colitis, ruled out IDDM --Levemir --Novolog standing and sliding scale --fingersticks Multiple pressure ulcers -- Stage III sacrum healing, Stage II left ear healing -- collagenase to Stage III slough area, silvadene to Stage II left ear --turn and position q2h FLUIDS/ELECTROLYTES/NUTRITION FLUIDS: 45cc free water hourly via tube feeds pump ELECTROLYTES: replete as indicated NUTRITION: Glucerna tube feeds at goal DVT Prophylaxis --SCDs, lovenox DISPO: Placement issue due to lack of any insurance. Advised case management is working on this. Needs transfer to long-term care facility. DNR.
[2015-09-04] MEDS: CHLORHEXIDINE GLUCONATE 4% CLEANSER FOR DECOLONIZATION TP SCH (21:55)
[2015-09-04] MEDS: INSULIN DETEMIR 100 UNITS/ML MDV SQ SCH (21:59)
[2015-09-05] MEDS: INSULIN (NOVOLOG) ASPART 100 UNITS/ML 10ML VIAL SQ SCH ×8 (00:03→17:09)
[2015-09-05 07:23] LABS: BASOPHIL 0.4 % (0-2.0); EOSINOPHIL 2.8 % (0-4.5); MCH 29.2 pg (25.7-33.7); MCHC 33.4 g/dl (32.0-35.9); MEAN CELL VOLUME 87.3 fl (80-96); MEAN PLT VOLUME 8.4 fl (7.5-11.1); NEUTROPHILS 77.6 % (42.8-82.8); PLATELET COUNT 266 K/MM3 (134-434); RDW 15.8 % (11.9-15.9); WHITE BLOOD COUNT 12.9 K/mm3 (4.0-10.0)
[2015-09-05 07:49] LABS: ALBUMIN 2.5 g/dl (3.4-5.0); ANION GAP 7 (8-16); BILIRUBIN,TOTAL 0.3 mg/dL (0.2-1.0); CALCIUM 8.6 mg/dL (8.5-10.1); CO2 27 mmol/L (21-32); CREATININE 0.5 mg/dL (0.6-1.3); GLUCOSE,RANDOM 149 mg/dL (74-106); MAGNESIUM 1.7 mg/dL (1.8-2.4); SGOT/AST 11 U/L (15-37); SGPT/ALT 18 U/L (12-78); TOT PROT 6.2 g/dl (6.4-8.2)
[2015-09-05 07:50] LABS: ALK PHOS 100 U/L (45-117)
[2015-09-05] MEDS: MUPIROCIN 2% TOPICAL OINTMENT FOR DECOLONIZATION NS SCH ×2 (09:41→21:40)
[2015-09-05] MEDS: amLODIPine BESYLATE 10 MG TABLET (FP) GT SCH (09:51)
[2015-09-05] MEDS: METOPROLOL TARTRATE 50 MG TABLET (FP) GT SCH ×2 (09:51→21:39)
[2015-09-05] MEDS: PANTOPRAZOLE SOD 40 MG SUSPENSION PACKET GT SCH (09:52)
[2015-09-05] MEDS: CHLORHEXIDINE GLUCONATE 0.12% 15ML CUP MM SCH ×2 (09:52→21:39)
[2015-09-05] MEDS: LISINOPRIL 20 MG TABLET (FP) GT SCH (09:52)
[2015-09-05] MEDS: MULTIVITAMINS THERAPEUTIC GT SCH (09:53)
[2015-09-05] MEDS: COLLAGENASE CLOSTRIDIUM HIST. 30 GRAMS TUBE TP SCH (09:53)
[2015-09-05] MEDS: SILVER SULFADIAZINE 1% TOP CREAM 50 GM JAR TP SCH (09:53)
--- NOTE | 2015-09-05 15:00 | PN ---
Progress Note (short form) - Note Progress Note: Progress Note: Progress Note PULM/CCM Patient Name: CRUZ LEE Date of : 1940 Patient Status: Inpatient Attending Provider: Yolis Arthur Pt seen and examined in ICU 24HR: crit stable, no overt bleeding in for floor bed, none avail Vital Signs Temp 98.1 F 09/05/15 06:00 Pulse 72 09/05/15 14:00 Resp 16 09/05/15 14:00 BP 139/58 09/05/15 14:00 Pulse Ox 99 09/05/15 10:00 Intake & Output 09/04/15 09/05/15 09/05/15 23:59 11:59 23:59 Intake Total 2475 1465 Output Total 800 Balance 2475 665 Weight 72.575 kg Intake: IV 1000 Normal Saline - 1,000 ml 1000 @ 1000 mls/hr IV ASDIR STA Rx#:[id number] Tube Feeding 800 1150 Tube Irrigant 675 315 Output: Drainage 400 fecal tube 400 Urine 400 Void 400 Other: Voiding Method External Catheter External Catheter # Unmeasured Voids Void 1 Weight Measurement Method Built in [facility] Current Medications Acetaminophen (Tylenol Oral Solution -) 650 mg GT Q6H PRN PRN Reason: FEVER Amlodipine Besylate (Norvasc -) 10 mg GT DAILY [facility] Last Admin: 09/05/15 09:51 Dose: 10 mg Chlorhexidine Gluconate (Hibiclens For Decolonization -) 1 applic TP HS [facility] Last Admin: 09/04/15 21:55 Dose: 1 applic Chlorhexidine Gluconate (Peridex -) 15 ml MM BID [facility] Last Admin: 09/05/15 09:52 Dose: 15 ml Collagenase (Santyl -) 1 applic TP DAILY [facility] Last Admin: 09/05/15 09:53 Dose: 1 applic Ibuprofen (Motrin Oral Suspension -) 200 mg PO Q6H PRN PRN Reason: FEVER Insulin Aspart (Novolog Vial) 5 units SQ Q6HPO [facility] Last Admin: 09/05/15 06:49 Dose: 5 units Insulin Aspart (Novolog Vial) 0 units SQ Q6HPO [facility] PRN Reason: Protocol Last Admin: 09/05/15 06:49 Dose: 2 units Insulin Detemir (Levemir Vial) 28 units SQ HS [facility] Last Admin: 09/04/15 21:59 Dose: 28 units Lisinopril (Prinivil -) 40 mg GT DAILY [facility] Last Admin: 09/05/15 09:52 Dose: 40 mg Metoprolol Tartrate (Lopressor -) 125 mg GT BID [facility] Last Admin: 09/05/15 09:51 Dose: 125 mg Metoprolol Tartrate (Lopressor Injection -) 5 mg IVPB Q6H PRN PRN Reason: HYPERTENSION Multivitamins (Thera-Plus -) 5 ml GT DAILY [facility] Last Admin: 09/05/15 09:53 Dose: 5 ml Mupirocin (Bactroban Ointment (For Decolonization) -) 1 applic NS BID [facility] Stop: 09/08/15 21:59 Last Admin: 09/05/15 09:41 Dose: 1 applic Ondansetron HCl (Zofran Injection -) 4 mg IVPB Q6H PRN PRN Reason: NAUSEA Pantoprazole Sodium (Protonix Packets For Oral Suspension -) 40 mg GT DAILY [facility] Last Admin: 09/05/15 09:52 Dose: 40 mg Silver Sulfadiazine (Silvadene -) 1 applic TP DAILY [facility] Last Admin: 09/05/15 09:53 Dose: 1 applic Gen: Trached, NAD Heart: S1S2 Lung: decreased breath sounds at the bases Abd: soft, (+) BS Groin: dressed access site R groin with small hematoma, no active bleeding Ext: (+) edema CBC, BMP 09/05/15 05:10 09/05/15 05:10 IMP: Illiac bleed s/p IR procedure with apparent hemostasis achieved Acute Brainstem CVA S/P Right Hemicoletomy due to Acute Lower Diverticular GI Bleed Acute Blood Loss Anemia Acute Respiratory Failure Pneumonia likely aspiration HTN DM CKD C diff Ag (+) PLAN: - trend CBC, monitor hematoma - Enteral feeds as tolerated - DVT/GI prophylaxis - Wean vent as mental status allows - D/C Planning for NH - ID following, cxl off abx, monitor fever curve/wbc -ok for floor [facility] [id number] Problem List - Problems (1) Anoxic brain damage Code: G93.1 (2) Fever Code: R50.9 (3) 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
[2015-09-05 15:20] LABS: PHOSPHOROUS 3.8 mg/dL (2.5-4.9)
--- NOTE | 2015-09-05 19:34 | PN ---
Progress Note (short form) - Note Progress Note: SUBJECTIVE: Patient seen and examined. No s/s of pain. Not opening eyes or following commands. OBJECTIVE Vital Signs Period Temp Pulse Resp BP Sys/Santiago Pulse Ox Last 24 Hr 97.3 F-99.4 F 68-102 10-19 120-155/58-80 99-100 GENERAL: In no apparent distress. HEAD: Normal with no signs of trauma. EYES: Pupils equal, round and reactive to light, sclera anicteric, conjunctiva clear. ENT: Ears normal, nares patent. Dry mucous membranes. NECK: No lymphadenopathy, JVD, or masses. LUNGS: Mechanical breath sounds. No wheezes, rhonchi or crackles. HEART: Regular rate and rhythm, normal S1 and S2 without murmur, rub or gallop. ABDOMEN: Soft, nontender, normoactive bowel sounds. No guarding, no rebound. No masses. EXTREMITIES: dressing at right groin with small hematoma, c/d/i NEUROLOGICAL: Not following commands Laboratory Results - last 24 hr 09/04/15 09/05/15 09/05/15 23:59 05:10 06:08 WBC 12.9 H RBC 2.79 L Hgb 8.1 L Hct 24.3 L MCV 87.3 MCHC 33.4 RDW 15.8 Plt Count 266 MPV 8.4 Neutrophils % 77.6 Lymphocytes % 13.5 D Monocytes % 5.7 Eosinophils % 2.8 Basophils % 0.4 Sodium 137 Potassium 3.4 L Chloride 103 Carbon Dioxide 27 Anion Gap 7 L BUN 12 D Creatinine 0.5 L D Creat Clearance w eGFR > 60 POC Glucometer 198.23076 178.83684 Random Glucose 149 H D Calcium 8.6 Phosphorus 3.8 Magnesium 1.7 L Total Bilirubin 0.3 AST 11 L D ALT 18 Alkaline Phosphatase 100 Total Protein 6.2 L Albumin 2.5 L 09/05/15 09/05/15 11:43 17:08 WBC RBC Hgb Hct MCV MCHC RDW Plt Count MPV Neutrophils % Lymphocytes % Monocytes % Eosinophils % Basophils % Sodium Potassium Chloride Carbon Dioxide Anion Gap BUN Creatinine Creat Clearance w eGFR POC Glucometer 186.12892 208.54772 Random Glucose Calcium Phosphorus Magnesium Total Bilirubin AST ALT Alkaline Phosphatase Total Protein Albumin Current Medications Generic Name Dose Route Start Last Admin Trade Name Freq PRN Reason Stop Dose Admin Acetaminophen 650 mg 09/04/15 19:27 Tylenol Oral Solution - GT Q6H PRN FEVER Amlodipine Besylate 10 mg 09/05/15 10:00 09/05/15 09:51 Norvasc - GT 10 mg DAILY [facility] Administration Chlorhexidine Gluconate 1 applic 09/04/15 22:00 09/04/15 21:55 Hibiclens For Decolonization - TP 1 applic HS [facility] Administration Chlorhexidine Gluconate 15 ml 09/04/15 22:00 09/05/15 09:52 Peridex - MM 15 ml BID [facility] Administration Collagenase 1 applic 09/05/15 10:00 09/05/15 09:53 Santyl - TP 1 applic DAILY [facility] Administration Ibuprofen 200 mg 09/04/15 19:27 Motrin Oral Suspension - PO Q6H PRN FEVER Insulin Aspart 5 units 09/05/15 00:00 09/05/15 17:08 Novolog Vial SQ 5 units Q6HPO [facility] Administration Insulin Aspart 0 units 09/05/15 00:00 09/05/15 17:09 Novolog Vial SQ 4 units Q6HPO [facility] Administration Protocol Insulin Detemir 28 units 09/04/15 22:00 09/04/15 21:59 Levemir Vial SQ 28 units HS [facility] Administration Lisinopril 40 mg 09/05/15 10:00 09/05/15 09:52 Prinivil - GT 40 mg DAILY [facility] Administration Metoprolol Tartrate 125 mg 09/04/15 22:00 09/05/15 09:51 Lopressor - GT 125 mg BID [facility] Administration Metoprolol Tartrate 5 mg 09/04/15 19:27 Lopressor Injection - IVPB Q6H PRN HYPERTENSION Multivitamins 5 ml 09/05/15 10:00 09/05/15 09:53 Thera-Plus - GT 5 ml DAILY [facility] Administration Mupirocin 1 applic 09/04/15 22:00 09/05/15 09:41 Bactroban Ointment (For Decolonization) - NS 09/08/15 21:59 1 applic BID [facility] Administration Ondansetron HCl 4 mg 09/04/15 19:27 Zofran Injection - IVPB Q6H PRN NAUSEA Pantoprazole Sodium 40 mg 09/05/15 10:00 09/05/15 09:52 Protonix Packets For Oral Suspension - GT 40 mg DAILY [facility] Administration Silver Sulfadiazine 1 applic 09/05/15 10:00 09/05/15 09:53 Silvadene - TP 1 applic DAILY [facility] Administration A/P: This is hospital day #70 for this 75 year-old male with HTN, IDDM, inguinal hernia, and diverticular bleed s/p R hemicolectomy, 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 s/p trach and PEG. S/p embolization of left internal illiac artery bleed on 09/03. Anoxic brain injury s/p brainstem CVA --intermittently able to follow minimal commands to open eyes, squeeze right hand Persistent fevers of unknown origin Persistent leukocytosis --multiple rounds of cultures negative --09/03 CT scans show no obvious source --esr, crp mildly elevated Hypertension --continue lisinopril, metoprolol, amlodipine Respiratory failure secondary to anoxic brain injury CPAP trial --s/p trach, vent dependent; needs daily pressure support trials s/p diverticular bleed, right hemicolectomy --s/p PEG --tolerating feeds Hypernatremia --Na 137; continue free water via feeding tube pump @ 45cc's per houR C. difficile colitis, ruled out IDDM --Levemir --Novolog standing and sliding scale --fingersticks Multiple pressure ulcers -- Stage III sacrum healing, Stage II left ear healing -- collagenase to Stage III slough area, silvadene to Stage II left ear -- turn and position q2h FLUIDS/ELECTROLYTES/NUTRITION FLUIDS: 45cc free water hourly via tube feeds pump ELECTROLYTES: replete as indicated NUTRITION: Glucerna tube feeds at goal DVT Prophylaxis --SCDs, lovenox DISPO: Placement issue due to lack of any insurance. Advised case management is working on this. Needs transfer to long-term care facility. DNR. concern for active bleed); continue frree water via feeding tube pump @ 45cc's per hour; check Na level in am C. difficile colitis, ruled out IDDM --Levemir --Novolog standing and sliding scale --fingersticks Multiple pressure ulcers -- Stage III sacrum healing, Stage II left ear healing -- collagenase to Stage III slough area, silvadene to Stage II left ear --turn and position q2h FLUIDS/ELECTROLYTES/NUTRITION FLUIDS: 45cc free water hourly via tube feeds pump ELECTROLYTES: replete as indicated NUTRITION: Glucerna tube feeds at goal DVT Prophylaxis --SCDs, lovenox DISPO: Placement issue due to lack of any insurance. Advised case management is working on this. Needs transfer to long-term care facility. DNR.
[2015-09-05] MEDS: CHLORHEXIDINE GLUCONATE 4% CLEANSER FOR DECOLONIZATION TP SCH (21:39)
[2015-09-05] MEDS: INSULIN DETEMIR 100 UNITS/ML MDV SQ SCH (21:44)
[2015-09-06 06:09] LABS: BASOPHIL 0.7 % (0-2.0); EOSINOPHIL 3.8 % (0-4.5); MCH 29.3 pg (25.7-33.7); MEAN CELL VOLUME 88.7 fl (80-96); MEAN PLT VOLUME 8.8 fl (7.5-11.1); NEUTROPHILS 77.8 % (42.8-82.8); PLATELET COUNT 244 K/MM3 (134-434); RDW 15.8 % (11.9-15.9); WHITE BLOOD COUNT 13.1 K/mm3 (4.0-10.0)
[2015-09-06] MEDS: INSULIN (NOVOLOG) ASPART 100 UNITS/ML 10ML VIAL SQ SCH ×6 (06:18→12:40)
[2015-09-06 06:44] LABS: ALBUMIN 2.3 g/dl (3.4-5.0); ALK PHOS 90 U/L (45-117); ANION GAP 7 (8-16); BILIRUBIN,TOTAL 0.2 mg/dL (0.2-1.0); CALCIUM 8.4 mg/dL (8.5-10.1); CO2 27 mmol/L (21-32); CREATININE 0.5 mg/dL (0.6-1.3); GLUCOSE,RANDOM 143 mg/dL (74-106); PHOSPHOROUS 3.3 mg/dL (2.5-4.9); SGOT/AST 8 U/L (15-37); SGPT/ALT 14 U/L (12-78)
[2015-09-06 08:26] LABS: BASOPHIL 0.8 % (0-2.0); EOSINOPHIL 3.9 % (0-4.5); MCH 29.7 pg (25.7-33.7); MCHC 33.7 g/dl (32.0-35.9); MEAN CELL VOLUME 88.2 fl (80-96); MEAN PLT VOLUME 7.6 fl (7.5-11.1); NEUTROPHILS 77.2 % (42.8-82.8); PLATELET COUNT 248 K/MM3 (134-434); WHITE BLOOD COUNT 13.4 K/mm3 (4.0-10.0)
--- NOTE | 2015-09-06 09:11 | PN ---
Progress Note (short form) - Note Progress Note: Progress Note PULM/CCM Patient Name: CRUZ LEE Date of : 1940 Patient Status: Inpatient Attending Provider: Marcella Mcdonald No acute events overnight. AC mode of vent. No overt bleeding overnight. Intake & Output 09/03/15 09/04/15 09/05/15 09/06/15 23:59 23:59 23:59 23:59 Intake Total 450 2975 2065 1240 Output Total 1200 Balance 450 2975 865 1240 Weight 165 lb 9.074 oz 160 lb 161 lb 4.8 oz Last Vital Signs Temp Pulse Resp BP Pulse Ox 99.2 F 95 H 12 132/60 99 09/06/15 06:00 09/06/15 06:00 09/06/15 06:43 09/06/15 06:00 09/05/15 22:00 Active Medications Acetaminophen (Tylenol Oral Solution -) 650 mg GT Q6H PRN PRN Reason: FEVER Amlodipine Besylate (Norvasc -) 10 mg GT DAILY [facility] Last Admin: 09/05/15 09:51 Dose: 10 mg Chlorhexidine Gluconate (Hibiclens For Decolonization -) 1 applic TP HS [facility] Last Admin: 09/05/15 21:39 Dose: 1 applic Chlorhexidine Gluconate (Peridex -) 15 ml MM BID [facility] Last Admin: 09/05/15 21:39 Dose: 15 ml Collagenase (Santyl -) 1 applic TP DAILY [facility] Last Admin: 09/05/15 09:53 Dose: 1 applic Ibuprofen (Motrin Oral Suspension -) 200 mg PO Q6H PRN PRN Reason: FEVER Insulin Aspart (Novolog Vial) 5 units SQ Q6HPO [facility] Last Admin: 09/06/15 06:18 Dose: 5 units Insulin Aspart (Novolog Vial) 0 units SQ Q6HPO [facility] PRN Reason: Protocol Last Admin: 09/06/15 06:18 Dose: 2 units Insulin Detemir (Levemir Vial) 28 units SQ HS [facility] Last Admin: 09/05/15 21:44 Dose: 28 units Lisinopril (Prinivil -) 40 mg GT DAILY [facility] Last Admin: 09/05/15 09:52 Dose: 40 mg Metoprolol Tartrate (Lopressor -) 125 mg GT BID [facility] Last Admin: 09/05/15 21:39 Dose: 125 mg Metoprolol Tartrate (Lopressor Injection -) 5 mg IVPB Q6H PRN PRN Reason: HYPERTENSION Multivitamins (Thera-Plus -) 5 ml GT DAILY [facility] Last Admin: 09/05/15 09:53 Dose: 5 ml Mupirocin (Bactroban Ointment (For Decolonization) -) 1 applic NS BID [facility] Stop: 09/08/15 21:59 Last Admin: 09/05/15 21:40 Dose: 1 applic Ondansetron HCl (Zofran Injection -) 4 mg IVPB Q6H PRN PRN Reason: NAUSEA Pantoprazole Sodium (Protonix Packets For Oral Suspension -) 40 mg GT DAILY [facility] Last Admin: 09/05/15 09:52 Dose: 40 mg Silver Sulfadiazine (Silvadene -) 1 applic TP DAILY [facility] Last Admin: 09/05/15 09:53 Dose: 1 applic Gen: Trached, NAD Heart: S1S2 Lung: decreased breath sounds at the bases Abd: soft, (+) BS Groin: dressed access site R groin with small hematoma, no active bleeding Ext: (+) edema Laboratory Results - last 24 hr 09/03/15 09/05/15 09/05/15 19:20 05:10 11:43 WBC RBC Hgb Hct MCV MCHC RDW Plt Count MPV Neutrophils % Lymphocytes % Monocytes % Eosinophils % Basophils % Sodium Potassium Chloride Carbon Dioxide Anion Gap BUN Creatinine Creat Clearance w eGFR POC Glucometer [phone] Random Glucose Calcium Phosphorus 3.8 Magnesium Total Bilirubin AST ALT Alkaline Phosphatase Total Protein Albumin Crossmatch See Detail 09/05/15 09/05/15 09/06/15 17:08 21:30 05:10 WBC 13.1 H RBC 2.51 L Hgb 7.3 L Hct 22.2 L MCV 88.7 MCHC 33.0 RDW 15.8 Plt Count 244 MPV 8.8 Neutrophils % 77.8 Lymphocytes % 11.8 Monocytes % 5.9 Eosinophils % 3.8 Basophils % 0.7 Sodium 137 Potassium 3.7 Chloride 103 Carbon Dioxide 27 Anion Gap 7 L BUN 11 Creatinine 0.5 L Creat Clearance w eGFR > 60 POC Glucometer 208.64374 155.81766 Random Glucose 143 H Calcium 8.4 L Phosphorus 3.3 Magnesium 2.0 Total Bilirubin 0.2 D AST 8 L D ALT 14 D Alkaline Phosphatase 90 Total Protein 6.0 L Albumin 2.3 L Crossmatch 09/06/15 09/06/15 05:34 08:17 WBC 13.4 H RBC 2.55 L Hgb 7.6 L Hct 22.5 L MCV 88.2 MCHC 33.7 RDW 16.0 H Plt Count 248 MPV 7.6 D Neutrophils % 77.2 Lymphocytes % 11.1 Monocytes % 7.0 Eosinophils % 3.9 Basophils % 0.8 Sodium Potassium Chloride Carbon Dioxide Anion Gap BUN Creatinine Creat Clearance w eGFR POC Glucometer 163.80424 Random Glucose Calcium Phosphorus Magnesium Total Bilirubin AST ALT Alkaline Phosphatase Total Protein Albumin Crossmatch IMP: Illiac bleed s/p IR procedure with apparent hemostasis achieved Acute Brainstem CVA S/P Right Hemicoletomy due to Acute Lower Diverticular GI Bleed Acute Blood Loss Anemia Acute Respiratory Failure Pneumonia likely aspiration HTN DM CKD C diff Ag (+) PLAN: - trend CBC, monitor hematoma - Enteral feeds as tolerated - DVT/GI prophylaxis - Wean vent as mental status allows - D/C Planning for NH - ID following, cxl off abx, monitor fever curve/wbc -ok for floor Problem List - Problems (1) Anoxic brain damage Code: G93.1 (2) Fever Code: R50.9 (3) 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
[2015-09-06] MEDS: MUPIROCIN 2% TOPICAL OINTMENT FOR DECOLONIZATION NS SCH ×2 (10:00→21:49)
--- NOTE | 2015-09-06 10:41 | PN ---
Progress Note, Physician History of Present Illness: No acute distress on ventilator Afebrile No further GI bleeding reported WBC remains slightly elevated Stable off antibiotics - Current Medication List Current Medications: Active Medications Acetaminophen (Tylenol Oral Solution -) 650 mg GT Q6H PRN PRN Reason: FEVER Amlodipine Besylate (Norvasc -) 10 mg GT DAILY [facility] Last Admin: 09/05/15 09:51 Dose: 10 mg Chlorhexidine Gluconate (Hibiclens For Decolonization -) 1 applic TP HS [facility] Last Admin: 09/05/15 21:39 Dose: 1 applic Chlorhexidine Gluconate (Peridex -) 15 ml MM BID [facility] Last Admin: 09/05/15 21:39 Dose: 15 ml Collagenase (Santyl -) 1 applic TP DAILY [facility] Last Admin: 09/05/15 09:53 Dose: 1 applic Ibuprofen (Motrin Oral Suspension -) 200 mg PO Q6H PRN PRN Reason: FEVER Insulin Aspart (Novolog Vial) 5 units SQ Q6HPO [facility] Last Admin: 09/06/15 06:18 Dose: 5 units Insulin Aspart (Novolog Vial) 0 units SQ Q6HPO [facility] PRN Reason: Protocol Last Admin: 09/06/15 06:18 Dose: 2 units Insulin Detemir (Levemir Vial) 28 units SQ HS [facility] Last Admin: 09/05/15 21:44 Dose: 28 units Lisinopril (Prinivil -) 40 mg GT DAILY [facility] Last Admin: 09/05/15 09:52 Dose: 40 mg Metoprolol Tartrate (Lopressor -) 125 mg GT BID [facility] Last Admin: 09/05/15 21:39 Dose: 125 mg Metoprolol Tartrate (Lopressor Injection -) 5 mg IVPB Q6H PRN PRN Reason: HYPERTENSION Multivitamins (Thera-Plus -) 5 ml GT DAILY [facility] Last Admin: 09/05/15 09:53 Dose: 5 ml Mupirocin (Bactroban Ointment (For Decolonization) -) 1 applic NS BID [facility] Stop: 09/08/15 21:59 Last Admin: 09/05/15 21:40 Dose: 1 applic Ondansetron HCl (Zofran Injection -) 4 mg IVPB Q6H PRN PRN Reason: NAUSEA Pantoprazole Sodium (Protonix Packets For Oral Suspension -) 40 mg GT DAILY [facility] Last Admin: 09/05/15 09:52 Dose: 40 mg Silver Sulfadiazine (Silvadene -) 1 applic TP DAILY [facility] Last Admin: 09/05/15 09:53 Dose: 1 applic - Objective Vital Signs: Vital Signs Temperature 99.2 F 09/06/15 06:00 Pulse Rate 95 H 09/06/15 06:00 Respiratory Rate 14 09/06/15 09:24 Blood Pressure 132/60 09/06/15 06:00 O2 Sat by Pulse Oximetry (%) 99 09/05/15 22:00 Constitutional: Yes: No Distress Eyes: Yes: Conjunctiva Clear Cardiovascular: Yes: Regular Rate and Rhythm, S1, S2 Respiratory: Yes: CTA Bilaterally Gastrointestinal: Yes: Normal Bowel Sounds, Soft. No: Tenderness Edema: Yes Edema: LLE: 1+, RLE: 1+ Labs: CBC, BMP 09/06/15 08:17 09/06/15 05:10 INR, PTT INR 1.32 (0.86-1.14) H 09/03/15 19:20 Assessment/Plan S/P GI bleed Fever/ leukocytosis Hx R hemicolectomy for diverticular bleed S/P CVA Resp failure Hx C difficile Continue ICU monitoring Reculture for persistant temp Observe off antibiotics
[2015-09-06] MEDS: METOPROLOL TARTRATE 50 MG TABLET (FP) GT SCH ×2 (10:54→21:49)
[2015-09-06] MEDS: amLODIPine BESYLATE 10 MG TABLET (FP) GT SCH (10:55)
[2015-09-06] MEDS: CHLORHEXIDINE GLUCONATE 0.12% 15ML CUP MM SCH ×2 (10:55→21:49)
[2015-09-06] MEDS: LISINOPRIL 20 MG TABLET (FP) GT SCH (10:55)
[2015-09-06] MEDS: PANTOPRAZOLE SOD 40 MG SUSPENSION PACKET GT SCH (10:56)
--- NOTE | 2015-09-06 12:29 | PN ---
Progress Note (short form) - Note Progress Note: SUBJECTIVE: Patient seen and examined. Opened eyes to voice. OBJECTIVE Vital Signs Period Temp Pulse Resp BP Sys/Santiago Pulse Ox Last 24 Hr 99 F-99.5 F 72-107 10-18 120-147/58-69 99-99 GENERAL: In no apparent distress. HEAD: Normal with no signs of trauma. EYES: Pupils equal, round and reactive to light, sclera anicteric, conjunctiva clear. ENT: Ears normal, nares patent. Dry mucous membranes. NECK: No lymphadenopathy, JVD, or masses. LUNGS: Mechanical breath sounds. No wheezes, rhonchi or crackles. HEART: Regular rate and rhythm, normal S1 and S2 without murmur, rub or gallop. ABDOMEN: Soft, nontender, normoactive bowel sounds. No guarding, no rebound. No masses. EXTREMITIES: dressing at right groin with small hematoma, c/d/i NEUROLOGICAL: Not following commands CBCD WBC 13.4 K/mm3 (4.0-10.0) H 09/06/15 08:17 RBC 2.55 M/mm3 (4.00-5.60) L 09/06/15 08:17 Hgb 7.6 GM/dL (11.7-16.9) L 09/06/15 08:17 Hct 22.5 % (35.4-49) L 09/06/15 08:17 MCV 88.2 fl (80-96) 09/06/15 08:17 MCHC 33.7 g/dl (32.0-35.9) 09/06/15 08:17 RDW 16.0 % (11.9-15.9) H 09/06/15 08:17 Plt Count 248 K/MM3 (134-434) 09/06/15 08:17 MPV 7.6 fl (7.5-11.1) D 09/06/15 08:17 CMP Sodium 137 mmol/L (136-145) 09/06/15 05:10 Potassium 3.7 mmol/L (3.5-5.1) 09/06/15 05:10 Chloride 103 mmol/L (98-107) 09/06/15 05:10 Carbon Dioxide 27 mmol/L (21-32) 09/06/15 05:10 Anion Gap 7 (8-16) L 09/06/15 05:10 BUN 11 mg/dL (7-18) 09/06/15 05:10 Creatinine 0.5 mg/dL (0.6-1.3) L 09/06/15 05:10 Creat Clearance w eGFR > 60 (>60) 09/06/15 05:10 Calcium 8.4 mg/dL (8.5-10.1) L 09/06/15 05:10 Total Bilirubin 0.2 mg/dL (0.2-1.0) D 09/06/15 05:10 AST 8 U/L (15-37) L D 09/06/15 05:10 ALT 14 U/L (12-78) D 09/06/15 05:10 Alkaline Phosphatase 90 U/L (45-117) 09/06/15 05:10 Total Protein 6.0 g/dl (6.4-8.2) L 09/06/15 05:10 Albumin 2.3 g/dl (3.4-5.0) L 09/06/15 05:10 Current Medications Generic Name Dose Route Start Last Admin Trade Name Freq PRN Reason Stop Dose Admin Acetaminophen 650 mg 09/04/15 19:27 Tylenol Oral Solution - GT Q6H PRN FEVER Amlodipine Besylate 10 mg 09/05/15 10:00 09/06/15 10:55 Norvasc - GT 10 mg DAILY [facility] Administration Chlorhexidine Gluconate 1 applic 09/04/15 22:00 09/05/15 21:39 Hibiclens For Decolonization - TP 1 applic HS [facility] Administration Chlorhexidine Gluconate 15 ml 09/04/15 22:00 09/06/15 10:55 Peridex - MM 15 ml BID [facility] Administration Collagenase 1 applic 09/05/15 10:00 09/05/15 09:53 Santyl - TP 1 applic DAILY [facility] Administration Ibuprofen 200 mg 09/04/15 19:27 Motrin Oral Suspension - PO Q6H PRN FEVER Insulin Aspart 5 units 09/05/15 00:00 09/06/15 06:18 Novolog Vial SQ 5 units Q6HPO [facility] Administration Insulin Aspart 0 units 09/05/15 00:00 09/06/15 06:18 Novolog Vial SQ 2 units Q6HPO [facility] Administration Protocol Insulin Detemir 28 units 09/04/15 22:00 11/08/15 21:44 Levemir Vial SQ 28 units HS [facility] Administration Lisinopril 40 mg 09/05/15 10:00 09/06/15 10:55 Prinivil - GT 40 mg DAILY [facility] Administration Metoprolol Tartrate 125 mg 09/04/15 22:00 09/06/15 10:54 Lopressor - GT 125 mg BID [facility] Administration Metoprolol Tartrate 5 mg 09/04/15 19:27 Lopressor Injection - IVPB Q6H PRN HYPERTENSION Multivitamins 5 ml 09/05/15 10:00 09/05/15 09:53 Thera-Plus - GT 5 ml DAILY [facility] Administration Mupirocin 1 applic 09/04/15 22:00 09/05/15 21:40 Bactroban Ointment (For Decolonization) - NS 09/08/15 21:59 1 applic BID [facility] Administration Ondansetron HCl 4 mg 09/04/15 19:27 Zofran Injection - IVPB Q6H PRN NAUSEA Pantoprazole Sodium 40 mg 09/05/15 10:00 09/06/15 10:56 Protonix Packets For Oral Suspension - GT 40 mg DAILY [facility] Administration Silver Sulfadiazine 1 applic 09/05/15 10:00 09/05/15 09:53 Silvadene - TP 1 applic DAILY [facility] Administration A/P: This is hospital day #71 for this 75 year-old male with HTN, IDDM, inguinal hernia, and diverticular bleed s/p R hemicolectomy, 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 S/p trach and PEG. S/p embolization of left internal illiac artery bleed on 09/03. Iliac artery bleed s/p embolization --h/h dropped today 8.1-->7.6; will repeat in 6 hours Anoxic brain injury s/p brainstem CVA --intermittently able to follow minimal commands to open eyes, squeeze right hand Persistent fevers of unknown origin Persistent leukocytosis --multiple rounds of cultures negative --09/03 CT scans show no obvious source --esr, crp mildly elevated Hypertension --continue lisinopril, metoprolol, amlodipine Respiratory failure secondary to anoxic brain injury CPAP trial --s/p trach, vent dependent; needs daily pressure support trials s/p diverticular bleed, right hemicolectomy --s/p PEG --tolerating feeds Hypernatremia --Na 137; continue free water via feeding tube pump @ 45cc's per houR C. difficile colitis, ruled out IDDM --Levemir --Novolog standing and sliding scale --fingersticks Multiple pressure ulcers -- Stage III sacrum healing, Stage II left ear healing -- collagenase to Stage III slough area, silvadene to Stage II left ear -- turn and position q2h FLUIDS/ELECTROLYTES/NUTRITION FLUIDS: 45cc free water hourly via tube feeds pump ELECTROLYTES: replete as indicated NUTRITION: Glucerna tube feeds at goal DVT Prophylaxis --SCDs, lovenox DISPO: Placement issue due to lack of any insurance. Advised case management is working on this. Needs transfer to long-term care facility. DNR.
[2015-09-06] MEDS: COLLAGENASE CLOSTRIDIUM HIST. 30 GRAMS TUBE TP SCH (12:39)
[2015-09-06] MEDS: SILVER SULFADIAZINE 1% TOP CREAM 50 GM JAR TP SCH (12:39)
[2015-09-06] MEDS: MULTIVITAMINS THERAPEUTIC GT SCH (13:27)
[2015-09-06] MEDS: CHLORHEXIDINE GLUCONATE 4% CLEANSER FOR DECOLONIZATION TP SCH (21:49)
[2015-09-06] MEDS: INSULIN DETEMIR 100 UNITS/ML MDV SQ SCH (22:00)
[2015-09-07 06:51] LABS: MCH 28.4 pg (25.7-33.7); MCHC 32.5 g/dl (32.0-35.9); MEAN CELL VOLUME 87.4 fl (80-96); MEAN PLT VOLUME 7.8 fl (7.5-11.1); PLATELET COUNT 304 K/MM3 (134-434); RDW 15.9 % (11.9-15.9); WHITE BLOOD COUNT 12.6 K/mm3 (4.0-10.0)
[2015-09-07] MEDS: INSULIN (NOVOLOG) ASPART 100 UNITS/ML 10ML VIAL SQ SCH ×9 (07:03→19:12)
--- NOTE | 2015-09-07 08:19 | PN ---
Progress Note (short form) - Note Progress Note: SUBJECTIVE: Patient seen and examined. Eyes open, no purposeful movement. OBJECTIVE Vital Signs Period Temp Pulse Resp BP Sys/Santiago Pulse Ox Last 24 Hr 98.1 F-99.8 F 72-107 14-33 119-155/63-81 97-98 GENERAL: In no apparent distress. HEAD: Normal with no signs of trauma. EYES: Pupils equal, round and reactive to light, sclera anicteric, conjunctiva clear. ENT: Ears normal, nares patent. Dry mucous membranes. NECK: No lymphadenopathy, JVD, or masses. LUNGS: Mechanical breath sounds. No wheezes, rhonchi or crackles. HEART: Regular rate and rhythm, normal S1 and S2 without murmur, rub or gallop. ABDOMEN: Soft, nontender, normoactive bowel sounds. No guarding, no rebound. No masses. EXTREMITIES: dressing at right groin with small hematoma, c/d/i NEUROLOGICAL: Not following commands CBCD WBC 12.6 K/mm3 (4.0-10.0) H 09/07/15 05:00 RBC 2.72 M/mm3 (4.00-5.60) L 09/07/15 05:00 Hgb 7.7 GM/dL (11.7-16.9) L 09/07/15 05:00 Hct 23.8 % (35.4-49) L 09/07/15 05:00 MCV 87.4 fl (80-96) 09/07/15 05:00 MCHC 32.5 g/dl (32.0-35.9) 09/07/15 05:00 RDW 15.9 % (11.9-15.9) 09/07/15 05:00 Plt Count 304 K/MM3 (134-434) D 09/07/15 05:00 MPV 7.8 fl (7.5-11.1) 09/07/15 05:00 CMP Sodium 137 mmol/L (136-145) 09/06/15 05:10 Potassium 3.7 mmol/L (3.5-5.1) 09/06/15 05:10 Chloride 103 mmol/L (98-107) 09/06/15 05:10 Carbon Dioxide 27 mmol/L (21-32) 09/06/15 05:10 Anion Gap 7 (8-16) L 09/06/15 05:10 BUN 11 mg/dL (7-18) 09/06/15 05:10 Creatinine 0.5 mg/dL (0.6-1.3) L 09/06/15 05:10 Creat Clearance w eGFR > 60 (>60) 09/06/15 05:10 Calcium 8.4 mg/dL (8.5-10.1) L 09/06/15 05:10 Total Bilirubin 0.2 mg/dL (0.2-1.0) D 09/06/15 05:10 AST 8 U/L (15-37) L D 09/06/15 05:10 ALT 14 U/L (12-78) D 09/06/15 05:10 Alkaline Phosphatase 90 U/L (45-117) 09/06/15 05:10 Total Protein 6.0 g/dl (6.4-8.2) L 09/06/15 05:10 Albumin 2.3 g/dl (3.4-5.0) L 09/06/15 05:10 Current Medications Generic Name Dose Route Start Last Admin Trade Name Freq PRN Reason Stop Dose Admin Acetaminophen 650 mg 09/04/15 19:27 Tylenol Oral Solution - GT Q6H PRN FEVER Amlodipine Besylate 10 mg 09/05/15 10:00 09/07/15 10:02 Norvasc - GT 10 mg DAILY KWAKU Administration Chlorhexidine Gluconate 1 applic 09/04/15 22:00 09/06/15 21:49 Hibiclens For Decolonization - TP 1 applic HS KWAKU Administration Chlorhexidine Gluconate 15 ml 09/04/15 22:00 09/07/15 10:02 Peridex - MM 15 ml BID KWAKU Administration Collagenase 1 applic 09/05/15 10:00 09/07/15 10:04 Santyl - TP 1 applic DAILY KWAKU Administration Ibuprofen 200 mg 09/04/15 19:27 Motrin Oral Suspension - PO Q6H PRN FEVER Insulin Aspart 5 units 09/05/15 00:00 09/07/15 12:46 Novolog Vial SQ 5 units Q6HPO KWAKU Administration Insulin Aspart 0 units 09/05/15 00:00 09/07/15 12:45 Novolog Vial SQ 4 units Q6HPO KWAKU Administration Protocol Insulin Detemir 28 units 09/04/15 22:00 09/06/15 22:00 Levemir Vial SQ 28 units HS KWAKU Administration Lisinopril 40 mg 09/05/15 10:00 09/07/15 10:02 Prinivil - GT 40 mg DAILY KWAKU Administration Metoprolol Tartrate 125 mg 09/04/15 22:00 09/07/15 10:01 Lopressor - GT 125 mg BID KWAKU Administration Metoprolol Tartrate 5 mg 09/04/15 19:27 Lopressor Injection - IVPB Q6H PRN HYPERTENSION Multivitamins 5 ml 09/05/15 10:00 09/07/15 10:05 Thera-Plus - GT 5 ml DAILY KWAKU Administration Mupirocin 1 applic 09/04/15 22:00 09/07/15 10:00 Bactroban Ointment (For Decolonization) - NS 09/08/15 21:59 1 applic BID KWAKU Administration Ondansetron HCl 4 mg 09/04/15 19:27 Zofran Injection - IVPB Q6H PRN NAUSEA Pantoprazole Sodium 40 mg 09/05/15 10:00 09/07/15 12:10 Protonix Packets For Oral Suspension - GT 40 mg DAILY KWAKU Administration Silver Sulfadiazine 1 applic 09/05/15 10:00 09/07/15 10:04 Silvadene - TP 1 applic DAILY KWAKU Administration A/P: This is hospital day #72 for this 75 year-old male with HTN, IDDM, inguinal hernia, and diverticular bleed s/p R hemicolectomy, 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 S/p trach and PEG. S/p embolization of left internal illiac artery bleed on 09/03. Iliac artery bleed s/p embolization --h/h 7.7, stable Anoxic brain injury s/p brainstem CVA --intermittently able to follow minimal commands to open eyes, squeeze right hand Persistent fevers of unknown origin Persistent leukocytosis --multiple rounds of cultures negative --09/03 CT scans show no obvious source --esr, crp mildly elevated Hypertension --continue lisinopril, metoprolol, amlodipine Respiratory failure secondary to anoxic brain injury CPAP trial --s/p trach, vent dependent; needs daily pressure support trials; have discussed this with boot lace cutter machine and nursing staff; standing order for respiratory therapy to do this and to make written entry of daily progress s/p diverticular bleed, right hemicolectomy --s/p PEG --tolerating feeds Hypernatremia --Na 137; continue free water via feeding tube pump @ 45cc's per houR C. difficile colitis, ruled out IDDM --Levemir --Novolog standing and sliding scale --fingersticks Multiple pressure ulcers -- Stage III sacrum healing, Stage II left ear healing -- collagenase to Stage III slough area, silvadene to Stage II left ear -- turn and position q2h FLUIDS/ELECTROLYTES/NUTRITION FLUIDS: 45cc free water hourly via tube feeds pump ELECTROLYTES: replete as indicated NUTRITION: Glucerna tube feeds at goal DVT Prophylaxis --SCDs, lovenox DISPO: Placement issue due to lack of any insurance. Advised case management is working on this. Needs transfer to long-term care facility. DNR.
--- NOTE | 2015-09-07 08:38 | PN ---
Progress Note (short form) - Note Progress Note: Progress Note PULM/CCM Patient Name: CRUZ LEE Date of : 1940 Patient Status: Inpatient Attending Provider: Marcella Mcdonald No acute events overnight. AC mode of vent. No overt bleeding overnight. H&H stable on today's labs. Intake & Output 09/04/15 09/05/15 09/06/15 09/07/15 23:59 23:59 23:59 23:59 Intake Total 2975 2065 1340 950 Output Total 9148 145 2951 Balance 2975 865 1040 -300 Weight 165 lb 9.074 oz 160 lb 161 lb 4.8 oz 158 lb 3.2 oz Last Vital Signs Temp Pulse Resp BP Pulse Ox 98.4 F 95 H 14 155/79 98 09/07/15 06:00 09/07/15 06:00 09/07/15 07:19 09/07/15 06:00 09/06/15 22:33 Active Medications Acetaminophen (Tylenol Oral Solution -) 650 mg GT Q6H PRN PRN Reason: FEVER Amlodipine Besylate (Norvasc -) 10 mg GT DAILY [facility] Last Admin: 09/06/15 10:55 Dose: 10 mg Chlorhexidine Gluconate (Hibiclens For Decolonization -) 1 applic TP HS [facility] Last Admin: 09/06/15 21:49 Dose: 1 applic Chlorhexidine Gluconate (Peridex -) 15 ml MM BID KWAKU Last Admin: 09/06/15 21:49 Dose: 15 ml Collagenase (Santyl -) 1 applic TP DAILY [facility] Last Admin: 09/06/15 12:39 Dose: 1 applic Ibuprofen (Motrin Oral Suspension -) 200 mg PO Q6H PRN PRN Reason: FEVER Insulin Aspart (Novolog Vial) 5 units SQ Q6HPO KWAKU Last Admin: 09/07/15 07:03 Dose: 5 units Insulin Aspart (Novolog Vial) 0 units SQ Q6HPO KWAKU PRN Reason: Protocol Last Admin: 09/07/15 07:04 Dose: 2 units Insulin Detemir (Levemir Vial) 28 units SQ HS [facility] Last Admin: 09/06/15 22:00 Dose: 28 units Lisinopril (Prinivil -) 40 mg GT DAILY [facility] Last Admin: 09/06/15 10:55 Dose: 40 mg Metoprolol Tartrate (Lopressor -) 125 mg GT BID [facility] Last Admin: 09/06/15 21:49 Dose: 125 mg Metoprolol Tartrate (Lopressor Injection -) 5 mg IVPB Q6H PRN PRN Reason: HYPERTENSION Multivitamins (Thera-Plus -) 5 ml GT DAILY [facility] Last Admin: 09/06/15 13:27 Dose: 5 ml Mupirocin (Bactroban Ointment (For Decolonization) -) 1 applic NS BID [facility] Stop: 09/08/15 21:59 Last Admin: 09/06/15 21:49 Dose: 1 applic Ondansetron HCl (Zofran Injection -) 4 mg IVPB Q6H PRN PRN Reason: NAUSEA Pantoprazole Sodium (Protonix Packets For Oral Suspension -) 40 mg GT DAILY [facility] Last Admin: 09/06/15 10:56 Dose: 40 mg Silver Sulfadiazine (Silvadene -) 1 applic TP DAILY [facility] Last Admin: 09/06/15 12:39 Dose: 1 applic Gen: Trached, NAD Heart: S1S2 Lung: decreased breath sounds at the bases Abd: soft, (+) BS Groin: no active bleeding Ext: (+) edema Laboratory Results - last 24 hr 09/03/15 09/06/15 09/06/15 18:48 11:43 18:12 WBC RBC Hgb Hct MCV MCHC RDW Plt Count MPV POC Glucometer [id number] Crossmatch See Detail 09/07/15 05:00 WBC 12.6 H RBC 2.72 L Hgb 7.7 L Hct 23.8 L MCV 87.4 MCHC 32.5 RDW 15.9 Plt Count 304 D MPV 7.8 POC Glucometer Crossmatch IMP: Illiac bleed s/p IR procedure with apparent hemostasis achieved Acute Brainstem CVA S/P Right Hemicoletomy due to Acute Lower Diverticular GI Bleed Acute Blood Loss Anemia Acute Respiratory Failure Pneumonia likely aspiration HTN DM CKD C diff Ag (+) PLAN: - Follow CBC - Enteral feeds as tolerated - DVT/GI prophylaxis - Wean vent as mental status allows - Vent floor Problem List - Problems (1) Anoxic brain damage Code: G93.1 (2) Fever Code: R50.9 (3) 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
[2015-09-07] MEDS: MUPIROCIN 2% TOPICAL OINTMENT FOR DECOLONIZATION NS SCH ×2 (10:00→21:43)
[2015-09-07] MEDS: METOPROLOL TARTRATE 50 MG TABLET (FP) GT SCH ×2 (10:01→21:49)
[2015-09-07] MEDS: amLODIPine BESYLATE 10 MG TABLET (FP) GT SCH (10:02)
[2015-09-07] MEDS: CHLORHEXIDINE GLUCONATE 0.12% 15ML CUP MM SCH ×2 (10:02→21:49)
[2015-09-07] MEDS: LISINOPRIL 20 MG TABLET (FP) GT SCH (10:02)
[2015-09-07] MEDS: SILVER SULFADIAZINE 1% TOP CREAM 50 GM JAR TP SCH (10:04)
[2015-09-07] MEDS: COLLAGENASE CLOSTRIDIUM HIST. 30 GRAMS TUBE TP SCH (10:04)
[2015-09-07] MEDS: MULTIVITAMINS THERAPEUTIC GT SCH (10:05)
[2015-09-07] MEDS: PANTOPRAZOLE SOD 40 MG SUSPENSION PACKET GT SCH (12:10)
[2015-09-07] MEDS: CHLORHEXIDINE GLUCONATE 4% CLEANSER FOR DECOLONIZATION TP SCH (21:43)
[2015-09-07] MEDS: INSULIN DETEMIR 100 UNITS/ML MDV SQ SCH (21:59)
[2015-09-08] MEDS: INSULIN (NOVOLOG) ASPART 100 UNITS/ML 10ML VIAL SQ SCH ×8 (00:07→18:02)
[2015-09-08 06:23] LABS: MCH 28.7 pg (25.7-33.7); MCHC 32.5 g/dl (32.0-35.9); MEAN CELL VOLUME 88.4 fl (80-96); MEAN PLT VOLUME 7.7 fl (7.5-11.1); PLATELET COUNT 289 K/MM3 (134-434); RDW 15.7 % (11.9-15.9); WHITE BLOOD COUNT 10.2 K/mm3 (4.0-10.0)
[2015-09-08 07:21] LABS: ALBUMIN 2.6 g/dl (3.4-5.0); ALK PHOS 95 U/L (45-117); ANION GAP 7 (8-16); BILIRUBIN,TOTAL 0.2 mg/dL (0.2-1.0); CALCIUM 9.4 mg/dL (8.5-10.1); CO2 30 mmol/L (21-32); CREATININE 0.3 mg/dL (0.6-1.3); GLUCOSE,RANDOM 97 mg/dL (74-106); SGOT/AST 10 U/L (15-37); SGPT/ALT 15 U/L (12-78); TOT PROT 6.7 g/dl (6.4-8.2)
--- NOTE | 2015-09-08 08:04 | PN ---
Progress Note (short form) - Note Progress Note: Seen and examined in the ICU. Lethargic. AC mode vent 30% FIO2. Open eyes with tactile stimulus. No acute events overnight. Intake & Output 09/05/15 09/06/15 09/07/15 09/08/15 23:59 23:59 23:59 23:59 Intake Total 2065 1340 2000 1140 Output Total 9516 102 4144 300 Balance 865 1040 -1350 840 Weight 72.575 kg 73.164 kg 71.758 kg 72.631 kg Last Vital Signs Temp Pulse Resp BP Pulse Ox 98.4 F 90 16 148/71 98 09/08/15 06:00 09/08/15 06:00 09/08/15 07:00 09/08/15 06:00 09/07/15 22:00 Active Medications Generic Name Dose Route Start Last Admin Trade Name Freq PRN Reason Stop Dose Admin Acetaminophen 650 mg 09/04/15 19:27 Tylenol Oral Solution - GT Q6H PRN FEVER Amlodipine Besylate 10 mg 09/05/15 10:00 09/07/15 10:02 Norvasc - GT 10 mg DAILY KWAKU Administration Chlorhexidine Gluconate 1 applic 09/04/15 22:00 09/07/15 21:43 Hibiclens For Decolonization - TP 1 applic HS KWAKU Administration Chlorhexidine Gluconate 15 ml 09/04/15 22:00 09/07/15 21:49 Peridex - MM 15 ml BID KWAKU Administration Collagenase 1 applic 09/05/15 10:00 09/07/15 10:04 Santyl - TP 1 applic DAILY KWAKU Administration Ibuprofen 200 mg 09/04/15 19:27 Motrin Oral Suspension - PO Q6H PRN FEVER Insulin Aspart 5 units 09/05/15 00:00 09/08/15 06:28 Novolog Vial SQ Not Given Q6HPO KWAKU Insulin Aspart 0 units 09/05/15 00:00 09/08/15 06:28 Novolog Vial SQ Not Given Q6HPO KWAKU Protocol Insulin Detemir 28 units 09/04/15 22:00 09/07/15 21:59 Levemir Vial SQ 28 units HS KWAKU Administration Lisinopril 40 mg 09/05/15 10:00 09/07/15 10:02 Prinivil - GT 40 mg DAILY KWAKU Administration Metoprolol Tartrate 125 mg 09/04/15 22:00 09/07/15 21:49 Lopressor - GT 125 mg BID KWAKU Administration Metoprolol Tartrate 5 mg 09/04/15 19:27 Lopressor Injection - IVPB Q6H PRN HYPERTENSION Multivitamins 5 ml 09/05/15 10:00 09/07/15 10:05 Thera-Plus - GT 5 ml DAILY KWAKU Administration Mupirocin 1 applic 09/04/15 22:00 09/07/15 21:43 Bactroban Ointment (For Decolonization) - NS 09/08/15 21:59 1 applic BID KWAKU Administration Ondansetron HCl 4 mg 09/04/15 19:27 Zofran Injection - IVPB Q6H PRN NAUSEA Pantoprazole Sodium 40 mg 09/05/15 10:00 09/07/15 12:10 Protonix Packets For Oral Suspension - GT 40 mg DAILY KWAKU Administration Silver Sulfadiazine 1 applic 09/05/15 10:00 09/07/15 10:04 Silvadene - TP 1 applic DAILY KWAKU Administration GENERAL: Lethargic. Trached. No apparent distress. HEENT: Trached. CARDIOVASCULAR: Normal S1, S2. Regular rate and rhythm. PULMONARY: Few scattered rhonchi at the bases. ABDOMEN: Soft, non-distended, non-tender. + Bowel sounds. Intact PEG. EXTREMITIES: Chronic changes. SKIN: Warm, dry. No rash NEUROLOGICAL: Lethargic, not following commands. Laboratory Last Values WBC 10.2 K/mm3 (4.0-10.0) H 09/08/15 05:10 Corrected WBC (auto) Cancelled 06/26/15 21:50 RBC 2.75 M/mm3 (4.00-5.60) L 09/08/15 05:10 Hgb 7.9 GM/dL (11.7-16.9) L 09/08/15 05:10 Hct 24.3 % (35.4-49) L 09/08/15 05:10 MCV 88.4 fl (80-96) 09/08/15 05:10 MCHC 32.5 g/dl (32.0-35.9) 09/08/15 05:10 RDW 15.7 % (11.9-15.9) 09/08/15 05:10 Plt Count 289 K/MM3 (134-434) 09/08/15 05:10 MPV 7.7 fl (7.5-11.1) 09/08/15 05:10 Add Manual Diff Cancelled 06/26/15 21:50 Neutrophils % 77.2 % (42.8-82.8) 09/06/15 08:17 Lymphocytes % 11.1 % (8-40) 09/06/15 08:17 Monocytes % 7.0 % (3.8-10.2) 09/06/15 08:17 Eosinophils % 3.9 % (0-4.5) 09/06/15 08:17 Basophils % 0.8 % (0-2.0) 09/06/15 08:17 Band Neutrophils 6.0 % (0-10) 06/28/15 09:35 Differential Comment Manual diff done 06/28/15 09:35 Smudge Cells Cancelled 06/26/15 21:50 Platelet Estimate Slt decreased (NORMAL) 06/28/15 09:35 Platelet Comment No clumping noted 06/28/15 09:35 Platelet Comment No clotting detected 06/28/15 09:35 Normal RBC Morphology Cancelled 06/26/15 21:50 RBC Morphology Cancelled 06/26/15 21:50 ESR 66 mm/hr (0-20) H 09/03/15 07:30 INR 1.32 (0.86-1.14) H 09/03/15 19:20 PTT (Actin FS) 28.9 SECONDS (23.5-38.3) 09/03/15 19:20 Anticoagulation Therapy Y 07/11/15 07:07 Puncture Site Right radial 07/11/15 07:07 ABG pH 7.44 (7.35-7.45) 07/11/15 07:07 ABG pCO2 at Pt Temp 42.1 mmHg (35-45) 07/11/15 07:07 ABG pO2 at Pt Temp 113.0 mmHg (70-100) H D 07/11/15 07:07 ABG HCO3 27.8 meq/L (22-26) H 07/11/15 07:07 ABG O2 Sat (Measured) 99.1 % (90-98.9) H 07/11/15 07:07 ABG O2 Content 13.3 % vol (15-22) L 07/11/15 07:07 ABG Base Excess 3.8 meq/l (-2-2) H 07/11/15 07:07 Izaiah Test Positive 07/11/15 07:07 O2 Delivery Device Ventilator 07/11/15 07:07 Oxygen Flow Rate 30% 07/11/15 07:07 Vent Mode A/c 07/11/15 07:07 Vent Rate 10 07/11/15 07:07 Mechanical Rate Yes 07/11/15 07:07 PEEP 5.0 cmH2O 07/11/15 07:07 Pressure Support Vent 500 07/11/15 07:07 Sodium 138 mmol/L (136-145) 09/08/15 05:10 Potassium 3.5 mmol/L (3.5-5.1) 09/08/15 05:10 Chloride 101 mmol/L (98-107) 09/08/15 05:10 Carbon Dioxide 30 mmol/L (21-32) 09/08/15 05:10 Anion Gap 7 (8-16) L 09/08/15 05:10 BUN 8 mg/dL (7-18) D 09/08/15 05:10 Creatinine 0.3 mg/dL (0.6-1.3) L D 09/08/15 05:10 Creat Clearance w eGFR > 60 (>60) 09/08/15 05:10 POC Glucometer 191.12273 UNITS (()) 09/07/15 16:54 Random Glucose 97 mg/dL (74-106) D 09/08/15 05:10 Lactic Acid 1.561 mmol/L (0.4-2.0) 09/03/15 19:00 Calcium 9.4 mg/dL (8.5-10.1) 09/08/15 05:10 Phosphorus 3.3 mg/dL (2.5-4.9) 09/06/15 05:10 Magnesium 2.0 mg/dL (1.8-2.4) 09/06/15 05:10 Total Bilirubin 0.2 mg/dL (0.2-1.0) 09/08/15 05:10 AST 10 U/L (15-37) L D 09/08/15 05:10 ALT 15 U/L (12-78) 09/08/15 05:10 Alkaline Phosphatase 95 U/L (45-117) 09/08/15 05:10 Creatine Kinase 62 IU/L (38-174) 06/28/15 09:35 Creatine Kinase Index 0.7 % (0.0-5.0) 06/26/15 21:50 CK-MB (CK-2) 1.077 ng/ml (0.3-4.0) 06/26/15 21:50 CK-MB (CK-2) Rel Index Cancelled 06/26/15 21:50 Troponin I 0.07 ng/ml (0.03-0.5) D 07/09/15 05:00 C-Reactive Protein 2.1 MG/DL (0.00-0.3) H 09/03/15 07:30 Total Protein 6.7 g/dl (6.4-8.2) 09/08/15 05:10 Albumin 2.6 g/dl (3.4-5.0) L 09/08/15 05:10 Triglycerides 143 mg/dL (35-160) D 09/02/15 06:30 Cholesterol 106 mg/dL (50-200) D 09/02/15 06:30 Total LDL Cholesterol 66 mg/dL 09/02/15 06:30 HDL Cholesterol 26 mg/dL (40-60) L D 09/02/15 06:30 Lipase 140 U/L (73-293) 06/26/15 21:50 Prolactin 19.8 ng/ml (4.0-15.2) H 07/02/15 05:20 Urine Color Yellow 09/01/15 20:00 Urine Appearance Slcloudy 09/01/15 20:00 Urine pH 5.0 (5.0-8.0) 09/01/15 20:00 Ur Specific [place] 1.021 (1.001-1.035) 09/01/15 20:00 Urine Protein Negative (NEGATIVE) 09/01/15 20:00 Urine Glucose (UA) Negative (NEGATIVE) 09/01/15 20:00 Urine Ketones Negative (NEGATIVE) 09/01/15 20:00 Urine Blood Negative (NEGATIVE) 09/01/15 20:00 Urine Nitrite Negative (NEGATIVE) 09/01/15 20:00 Urine Bilirubin Negative (NEGATIVE) 09/01/15 20:00 Urine Urobilinogen Negative E.U./dl (0.2-1.0) 09/01/15 20:00 Ur Leukocyte Esterase Negative (NEGATIVE) 09/01/15 20:00 Urine RBC 180 /hpf (0-3) 07/27/15 15:55 Urine WBC 5 /hpf (3-5) 07/27/15 15:55 Ur Epithelial Cells Rare /hpf (FEW) 07/27/15 15:55 Urine Mucus Rare 07/27/15 15:55 Stool Occult Blood Negative (NEGATIVE) 07/02/15 12:00 Hepatitis C Ab (EIA) <0.1 s/co ratio (0.0-0.9) 07/03/15 05:15 Blood Type O POSITIVE 09/03/15 18:48 Antibody Screen Negative 09/03/15 18:48 Crossmatch See Detail 09/03/15 19:20 Crossmatch IS Only See Detail 06/26/15 21:50 Spec Expiration Date 06/26/15 21:50 PLAN: - Follow CBC - Enteral feeds as tolerated - DVT/GI prophylaxis - Wean vent as mental status allows - Vent floor Dr. Agosto Documentation prepared by Angelina Amaro, acting as director of medical education for Francisco Agosto MD. 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 difficile colitis Code: A04.7
[2015-09-08] MEDS: MUPIROCIN 2% TOPICAL OINTMENT FOR DECOLONIZATION NS SCH (11:01)
[2015-09-08] MEDS: CHLORHEXIDINE GLUCONATE 0.12% 15ML CUP MM SCH ×2 (11:01→21:37)
[2015-09-08] MEDS: amLODIPine BESYLATE 10 MG TABLET (FP) GT SCH (11:01)
[2015-09-08] MEDS: METOPROLOL TARTRATE 50 MG TABLET (FP) GT SCH ×2 (11:01→21:36)
[2015-09-08] MEDS: MULTIVITAMINS THERAPEUTIC GT SCH (11:01)
[2015-09-08] MEDS: PANTOPRAZOLE SOD 40 MG SUSPENSION PACKET GT SCH (11:02)
[2015-09-08] MEDS: LISINOPRIL 20 MG TABLET (FP) GT SCH (11:02)
[2015-09-08] MEDS: COLLAGENASE CLOSTRIDIUM HIST. 30 GRAMS TUBE TP SCH (11:02)
[2015-09-08] MEDS: SILVER SULFADIAZINE 1% TOP CREAM 50 GM JAR TP SCH (11:02)
--- NOTE | 2015-09-08 13:29 | PN ---
Progress Note (short form) - Note Progress Note: Wound Assessment H Reason for visit: Wound Assessment Request for consultation: by [facility] Interdisciplinary Wound Care Team Initial Encounter: No Previous Encounter: Yes Wounds - Wound Wound #1 Type of wound: Yes: Pressure ulcer Stage: III Location/laterality: sacrum across the midline Wound size: 9cmL x 11cm W x 0.5cmD Thickness: Partial Undermining: No Tunneling: No Drainage/exudate: yes, sanguinous Wound bed tissue: Erythematous, oozing blood Wound edges color: Erythematous Wound edges raised: yes Wound edges rolled: yes, partially Wound edges contracted: No Pain: No Surrounding tissue to 4cm: Yes: erythematous Wound #2 Type of wound: Yes: Pressure ulcer Stage: III Location/laterality: left ear Wound size: 2.0cmL x 1.0cmW x 0.1cmD Thickness: Partial Undermining: No Tunneling: No Drainage/exudate: Yes, serosanguinous Wound bed tissue: Yes: Erythematous Wound edges color: Normally pigmented Wound edges raised: No Wound edges rolled: No Wound edges contracted: No Pain: No Surrounding tissue to 4cm: Yes: Healthy Wound #3 Pressure ulcer, healed Stage II Assessment/Plan Wound #1 Diagnosis: Pressure ulcer Wound specific intervention: Collagenase to slough area Allevyn dressing Wound #2 Diagnosis: Pressure ulcer Wound specific intervention: Collagenase Wound 3 Diagnosis: pressure ulcer Wound specific intervention: none Impediments to healing: Limited mobility, Unable to self-position in bed, Hypoalbunemia, Nutritional deficiencies, Incontinence of urine, Incontinence of bowel Nutrition/Dietary supplements/vitamins: change to Jevity 1.5 at goal of 50, continue Prostat BID No recommendations Support Surface: Accucair Overlay HOB elevation: 30 degrees Off-loading: Turning/repositioning q2h, Elevate heels off bed with pillows Incontinence management: Avoid diapers; if must be used, do not secure around patient Insulin Aspart 3 units 08/04/15 11:26 08/04/15 12:24 Novolog Flexpen - SQ Not Given Q6HPO KWAKU Insulin Detemir 25 units 08/04/15 11:26 Levemir Flexpen - SQ HS KWAKU Lisinopril 20 mg 08/01/15 10:00 08/04/15 09:56 Prinivil - GT 20 mg DAILY KWAKU Administration Metoprolol Tartrate 5 mg 07/28/15 19:09 Lopressor Injection - IVPB Q6H PRN HYPERTENSION Metoprolol Tartrate 100 mg 07/31/15 22:00 08/04/15 09:57 Lopressor - GT 100 mg BID KWAKU Administration Multivitamins 5 ml 07/31/15 15:38 08/04/15 09:53 Thera-Plus - GT 5 ml DAILY KWAKU Administration Ondansetron HCl 4 mg 07/28/15 19:09 Zofran Injection - IVPB Q6H PRN NAUSEA Pantoprazole Sodium 40 mg 08/01/15 10:00 08/04/15 09:57 Protonix Packets For Oral Suspension - GT 40 mg DAILY KWAKU Administration Vancomycin HCl 125 mg 07/31/15 18:00 08/04/15 12:14 Vancomycin Oral Solution GT 125 mg Q6HPO KWAKU Administration Allergies Allergy/AdvReac Type Severity Reaction Status Date / Time No Known Allergies Allergy Verified 06/26/15 21:31 Physical Exam - Objective Last Vital Signs Temp Pulse Resp BP Pulse Ox 100.1 F H 97 H 20 145/84 98 08/04/15 06:00 08/04/15 10:07 08/04/15 10:07 08/04/15 06:00 08/04/15 10:07 Laboratory Last Values WBC 13.3 K/mm3 (4.0-10.0) H 08/04/15 06:00 Corrected WBC (auto) Cancelled 06/26/15 21:50 RBC 2.95 M/mm3 (4.00-5.60) L 08/04/15 06:00 Hgb 8.5 GM/dL (11.7-16.9) L 08/04/15 06:00 Hct 26.6 % (35.4-49) L 08/04/15 06:00 MCV 90.0 fl (80-96) 08/04/15 06:00 MCHC 32.2 g/dl (32.0-35.9) 08/04/15 06:00 RDW 14.3 % (11.9-15.9) 08/04/15 06:00 Plt Count 182 K/MM3 (134-434) 08/04/15 06:00 MPV 9.5 fl (7.5-11.1) 08/04/15 06:00 Add Manual Diff Cancelled 06/26/15 21:50 Neutrophils % 79.5 % (42.8-82.8) 08/04/15 06:00 Lymphocytes % 11.7 % (8-40) 08/04/15 06:00 Monocytes % 4.3 % (3.8-10.2) 08/04/15 06:00 Eosinophils % 4.0 % (0-4.5) 08/04/15 06:00 Basophils % 0.5 % (0-2.0) 08/04/15 06:00 Band Neutrophils 6.0 % (0-10) 06/28/15 09:35 Differential Comment Manual diff done 06/28/15 09:35 Smudge Cells Cancelled 06/26/15 21:50 Platelet Estimate Slt decreased (NORMAL) 06/28/15 09:35 Platelet Comment No clumping noted 06/28/15 09:35 Platelet Comment No clotting detected 06/28/15 09:35 Normal RBC Morphology Cancelled 06/26/15 21:50 RBC Morphology Cancelled 06/26/15 21:50 INR 1.30 (0.86-1.14) H 07/29/15 10:00 PTT (Actin FS) 28.6 SECONDS (23.5-38.3) 07/23/15 05:20 Anticoagulation Therapy Y 07/11/15 07:07 Puncture Site Right radial 07/11/15 07:07 ABG pH 7.44 (7.35-7.45) 07/11/15 07:07 ABG pCO2 at Pt Temp 42.1 mmHg (35-45) 07/11/15 07:07 ABG pO2 at Pt Temp 113.0 mmHg (70-100) H D 07/11/15 07:07 ABG HCO3 27.8 meq/L (22-26) H 07/11/15 07:07 ABG O2 Sat (Measured) 99.1 % (90-98.9) H 07/11/15 07:07 ABG O2 Content 13.3 % vol (15-22) L 07/11/15 07:07 ABG Base Excess 3.8 meq/l (-2-2) H 07/11/15 07:07 Izaiah Test Positive 07/11/15 07:07 O2 Delivery Device Ventilator 07/11/15 07:07 Oxygen Flow Rate 30% 07/11/15 07:07 Vent Mode A/c 07/11/15 07:07 Vent Rate 10 07/11/15 07:07 Mechanical Rate Yes 07/11/15 07:07 PEEP 5.0 cmH2O 07/11/15 07:07 Pressure Support Vent 500 07/11/15 07:07 Sodium 151 mmol/L (136-145) H 08/04/15 06:00 Potassium 3.9 mmol/L (3.5-5.1) 07/29/15 07:00 Chloride 113 mmol/L (98-107) H 07/29/15 07:00 Carbon Dioxide 33 mmol/L (21-32) H 07/29/15 07:00 Anion Gap 4 (8-16) L 07/29/15 07:00 BUN 26 mg/dL (7-18) H 07/29/15 07:00 Creatinine 0.9 mg/dL (0.6-1.3) 07/29/15 07:00 Creat Clearance w eGFR > 60 (>60) 07/29/15 07:00 POC Glucometer 212 UNITS (()) 08/04/15 12:10 Random Glucose 261 mg/dL (74-106) H D 07/29/15 07:00 Lactic Acid 1.606 mmol/L (0.4-2.0) 06/27/15 10:10 Calcium 9.5 mg/dL (8.5-10.1) 07/29/15 07:00 Phosphorus 3.5 mg/dL (2.5-4.9) 07/29/15 07:00 Magnesium 2.2 mg/dL (1.8-2.4) 07/29/15 07:00 Total Bilirubin 0.3 mg/dL (0.2-1.0) 07/29/15 07:00 AST 25 U/L (15-37) 07/29/15 07:00 ALT 36 U/L (12-78) D 07/29/15 07:00 Alkaline Phosphatase 104 U/L (45-117) 07/29/15 07:00 Creatine Kinase 62 IU/L (38-174) 06/28/15 09:35 Creatine Kinase Index 0.7 % (0.0-5.0) 06/26/15 21:50 CK-MB (CK-2) 1.077 ng/ml (0.3-4.0) 06/26/15 21:50 CK-MB (CK-2) Rel Index Cancelled 06/26/15 21:50 Troponin I 0.07 ng/ml (0.03-0.5) D 07/09/15 05:00 Total Protein 7.0 g/dl (6.4-8.2) 07/29/15 07:00 Albumin 2.6 g/dl (3.4-5.0) L 07/29/15 07:00 Lipase 140 U/L (73-293) 06/26/15 21:50 Prolactin 19.8 ng/ml (4.0-15.2) H 07/02/15 05:20 Urine Color Yellow 08/02/15 17:30 Urine Appearance Cloudy 08/02/15 17:30 Urine pH 5.0 (5.0-8.0) 08/02/15 17:30 Ur Specific Slater 1.029 (1.001-1.035) 08/02/15 17:30 Urine Protein Negative (NEGATIVE) 08/02/15 17:30 Urine Glucose (UA) 1+ (NEGATIVE) H 08/02/15 17:30 Urine Ketones Negative (NEGATIVE) 08/02/15 17:30 Urine Blood Negative (NEGATIVE) 08/02/15 17:30 Urine Nitrite Negative (NEGATIVE) 08/02/15 17:30 Urine Bilirubin Negative (NEGATIVE) 08/02/15 17:30 Urine Urobilinogen Negative E.U./dl (0.2-1.0) 08/02/15 17:30 Ur Leukocyte Esterase Negative (NEGATIVE) 08/02/15 17:30 Urine RBC 180 /hpf (0-3) 07/27/15 15:55 Urine WBC 5 /hpf (3-5) 07/27/15 15:55 Ur Epithelial Cells Rare /hpf (FEW) 07/27/15 15:55 Urine Mucus Rare 07/27/15 15:55 Stool Occult Blood Negative (NEGATIVE) 07/02/15 12:00 Hepatitis C Ab (EIA) <0.1 s/co ratio (0.0-0.9) 07/03/15 05:15 Blood Type O POSITIVE 07/22/15 11:54 Antibody Screen Negative 07/22/15 11:54 Crossmatch See Detail 06/30/15 15:15 Crossmatch IS Only See Detail 06/26/15 21:50 Spec Expiration Date 06/26/15 21:50 Microbiology 08/02/15 19:00 Urine - Urine Schwartz Urine Culture - Final NO GROWTH OBTAINED 07/30/15 18:30 Blood - Peripheral Venous Blood Culture - Preliminary NO GROWTH OBTAINED AFTER 96 HOURS, INCUBATION TO CONTINUE FOR 1 DAYS. 07/30/15 18:30 Blood - Peripheral Venous Blood Culture - Preliminary NO GROWTH OBTAINED AFTER 96 HOURS, INCUBATION TO CONTINUE FOR 1 DAYS. 08/02/15 17:20 Blood - Peripheral Venous Blood Culture - Preliminary NO GROWTH OBTAINED AFTER 24 HOURS, INCUBATION TO CONTINUE FOR 4 DAYS. 08/02/15 17:20 Blood - Peripheral Venous Blood Culture - Preliminary NO GROWTH OBTAINED AFTER 24 HOURS, INCUBATION TO CONTINUE FOR 4 DAYS. 08/02/15 22:55 Stool Clostridium difficile Antigen (MACHO) - Final 08/02/15 22:55 Stool Clostridium difficile Toxin Assay - Final 07/27/15 19:00 Blood - Peripheral Venous Blood Culture - Final NO GROWTH AFTER 5 DAYS INCUBATION 07/27/15 19:00 Blood - Peripheral Venous Blood Culture - Final NO GROWTH AFTER 5 DAYS INCUBATION 07/27/15 19:30 Stool Clostridium difficile (PCR) - Final 07/27/15 15:55 Urine - Urine Schwartz Urine Culture - Final NO GROWTH OBTAINED 07/24/15 21:50 Sputum - Endotrachea Suction/Ventilator Gram Stain - Final 07/24/15 21:50 Sputum - Endotrachea Suction/Ventilator Sputum Culture - Preliminary NORMAL RESPIRATORY ARMAND 07/15/15 11:30 Blood - Peripheral Venous Blood Culture - Final NO GROWTH AFTER 5 DAYS INCUBATION 07/15/15 11:30 Blood - Peripheral Venous Blood Culture - Final NO GROWTH AFTER 5 DAYS INCUBATION 07/10/15 10:30 Stool Stool Culture - Final NO SALMONELLA, SHIGELLA, YERSINIA, CAMPYLOBACTER OR E COLI 0157 ISOLATED 07/10/15 10:35 Stool Clostridium difficile Antigen (MACHO) - Final 07/10/15 10:35 Stool Clostridium difficile Toxin Assay - Final 07/10/15 10:30 Stool Gram Stain - Final 07/02/15 18:00 Blood - Peripheral Venous Blood Culture - Final NO GROWTH AFTER 5 DAYS INCUBATION 07/02/15 18:00 Blood - Peripheral Venous Blood Culture - Final NO GROWTH AFTER 5 DAYS INCUBATION 06/28/15 09:32 Blood - Peripheral Venous Blood Culture - Final NO GROWTH AFTER 5 DAYS INCUBATION 06/28/15 09:32 Blood - Peripheral Venous Blood Culture - Final NO GROWTH AFTER 5 DAYS INCUBATION 06/28/15 17:30 Sputum - Endotrachea Suction/Ventilator Gram Stain - Final 06/28/15 17:30 Sputum - Endotrachea Suction/Ventilator Sputum Culture - Final NORMAL RESPIRATORY ARMAND 06/27/15 20:30 Urine - Urine Schwartz Urine Culture - Final NO GROWTH OBTAINED 06/28/15 10:00 Urine For Antigen Detection Legionella Antigen - Final 06/28/15 10:00 Urine For Antigen Detection Streptococcus pneumoniae Antigen (M - Final Wounds - Wound Wound #1 Type of wound: Yes: Pressure ulcer Stage: III Location/laterality: sacrum across the midline Wound size: 9cmL x 11cm W x 0.5cmD Thickness: Partial Undermining: No Tunneling: No Drainage/exudate: yes, sanguinous Wound bed tissue: Erythematous, oozing blood Wound edges color: Erythematous Wound edges raised: yes Wound edges rolled: yes, partially Wound edges contracted: No Pain: No Surrounding tissue to 4cm: Yes: erythematous Wound #2 Type of wound: Yes: Pressure ulcer Stage: III Location/laterality: left ear Wound size: 2.0cmL x 1.0cmW x 0.1cmD Thickness: Partial Undermining: No Tunneling: No Drainage/exudate: Yes, serosanguinous Wound bed tissue: Yes: Erythematous Wound edges color: Normally pigmented Wound edges raised: No Wound edges rolled: No Wound edges contracted: No Pain: No Surrounding tissue to 4cm: Yes: Healthy Wound #3 Pressure ulcer, healed Stage II Assessment/Plan Wound #1 Diagnosis: Pressure ulcer Wound specific intervention: Collagenase to slough area Allevyn dressing Wound #2 Diagnosis: Pressure ulcer Wound specific intervention: Collagenase Wound 3 Diagnosis: pressure ulcer Wound specific intervention: none Impediments to healing: Limited mobility, Unable to self-position in bed, Hypoalbunemia, Nutritional deficiencies, Incontinence of urine, Incontinence of bowel Nutrition/Dietary supplements/vitamins: change to Jevity 1.5 at goal of 50, continue Prostat BID No recommendations Support Surface: Accucair Overlay HOB elevation: 30 degrees Off-loading: Turning/repositioning q2h, Elevate heels off bed with pillows Incontinence management: Avoid diapers; if must be used, do not secure around patient
--- NOTE | 2015-09-08 14:32 | PN ---
Progress Note (short form) - Note Progress Note: Hospitalist Progress Note SUBJECTIVE:This patient is new to me on this admission. Patient in nonverbal. Eyes open, no purposeful movement. Not following commands. OBJECTIVE: Last Vital Signs Temp Pulse Resp BP Pulse Ox 98.7 F 84 12 144/75 99 09/08/15 10:00 09/08/15 12:00 09/08/15 12:00 09/08/15 12:00 09/08/15 10:00 GENERAL: Lethargic. Trached. No apparent distress. PULMONARY: Few scattered rhonchi at the bases. CARDIOVASCULAR: nS1,S2, RRR ABDOMINAL: Soft, non-distended, non-tender. + Bowel sounds. Intact PEG. EXTREMITIES: chronic changes, warm, dry NEUROLOGICAL: lethargic, not following commands. Eyes open. CBCD WBC 10.2 K/mm3 (4.0-10.0) H 09/08/15 05:10 RBC 2.75 M/mm3 (4.00-5.60) L 09/08/15 05:10 Hgb 7.9 GM/dL (11.7-16.9) L 09/08/15 05:10 Hct 24.3 % (35.4-49) L 09/08/15 05:10 MCV 88.4 fl (80-96) 09/08/15 05:10 MCHC 32.5 g/dl (32.0-35.9) 09/08/15 05:10 RDW 15.7 % (11.9-15.9) 09/08/15 05:10 Plt Count 289 K/MM3 (134-434) 09/08/15 05:10 MPV 7.7 fl (7.5-11.1) 09/08/15 05:10 CMP Sodium 138 mmol/L (136-145) 09/08/15 05:10 Potassium 3.5 mmol/L (3.5-5.1) 09/08/15 05:10 Chloride 101 mmol/L (98-107) 09/08/15 05:10 Carbon Dioxide 30 mmol/L (21-32) 09/08/15 05:10 Anion Gap 7 (8-16) L 09/08/15 05:10 BUN 8 mg/dL (7-18) D 09/08/15 05:10 Creatinine 0.3 mg/dL (0.6-1.3) L D 09/08/15 05:10 Creat Clearance w eGFR > 60 (>60) 09/08/15 05:10 Calcium 9.4 mg/dL (8.5-10.1) 09/08/15 05:10 Total Bilirubin 0.2 mg/dL (0.2-1.0) 09/08/15 05:10 AST 10 U/L (15-37) L D 09/08/15 05:10 ALT 15 U/L (12-78) 09/08/15 05:10 Alkaline Phosphatase 95 U/L (45-117) 09/08/15 05:10 Total Protein 6.7 g/dl (6.4-8.2) 09/08/15 05:10 Albumin 2.6 g/dl (3.4-5.0) L 09/08/15 05:10 Current Medications Generic Name Dose Route Start Last Admin Trade Name Freq PRN Reason Stop Dose Admin Acetaminophen 650 mg 09/04/15 19:27 Tylenol Oral Solution - GT Q6H PRN FEVER Amlodipine Besylate 10 mg 09/05/15 10:00 09/08/15 11:01 Norvasc - GT 10 mg DAILY KWAKU Administration Chlorhexidine Gluconate 1 applic 09/04/15 22:00 09/07/15 21:43 Hibiclens For Decolonization - TP 1 applic HS KWAKU Administration Chlorhexidine Gluconate 15 ml 09/04/15 22:00 09/08/15 11:01 Peridex - MM 15 ml BID KWAKU Administration Collagenase 1 applic 09/05/15 10:00 09/08/15 11:02 Santyl - TP 1 applic DAILY KWAKU Administration Ibuprofen 200 mg 09/04/15 19:27 Motrin Oral Suspension - PO Q6H PRN FEVER Insulin Aspart 5 units 09/05/15 00:00 09/08/15 12:37 Novolog Vial SQ 5 units Q6HPO KWAKU Administration Insulin Aspart 0 units 09/05/15 00:00 09/08/15 12:36 Novolog Vial SQ 2 units Q6HPO KWAKU Administration Protocol Insulin Detemir 28 units 09/04/15 22:00 09/07/15 21:59 Levemir Vial SQ 28 units HS KWAKU Administration Lisinopril 40 mg 09/05/15 10:00 09/08/15 11:02 Prinivil - GT 40 mg DAILY KWAKU Administration Metoprolol Tartrate 125 mg 09/04/15 22:00 09/08/15 11:01 Lopressor - GT 125 mg BID KWAKU Administration Metoprolol Tartrate 5 mg 09/04/15 19:27 Lopressor Injection - IVPB Q6H PRN HYPERTENSION Multivitamins 5 ml 09/05/15 10:00 09/08/15 11:01 Thera-Plus - GT 5 ml DAILY KWAKU Administration Mupirocin 1 applic 09/04/15 22:00 09/08/15 11:01 Bactroban Ointment (For Decolonization) - NS 09/08/15 21:59 1 applic BID KWAKU Administration Ondansetron HCl 4 mg 09/04/15 19:27 Zofran Injection - IVPB Q6H PRN NAUSEA Pantoprazole Sodium 40 mg 09/05/15 10:00 09/08/15 11:02 Protonix Packets For Oral Suspension - GT 40 mg DAILY KWAKU Administration Silver Sulfadiazine 1 applic 09/05/15 10:00 09/08/15 11:02 Silvadene - TP 1 applic DAILY KWAKU Administration ASSESSMENT/PLAN:This is hospital day #73 for this 75 year-old male with HTN, IDDM, inguinal hernia, and diverticular bleed s/p R hemicolectomy, 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 S/p trach and PEG. S/p embolization of left internal illiac artery bleed on 09/03. Iliac artery bleed s/p embolization -h/h 7.9, stable - no signs of active bleeding Anoxic brain injury s/p brainstem CVA -intermittently able to follow minimal commands to open eyes, squeeze right hand Persistent fevers of unknown origin Persistent leukocytosis - currently afebrile - WBC trending down -multiple rounds of cultures negative -09/03 CT scans show no obvious source -esr, crp mildly elevated Hypertension -continue lisinopril, metoprolol, amlodipine Respiratory failure secondary to anoxic brain injury CPAP trial -s/p trach, vent dependent; needs daily pressure support trials; have discussed this with maintenance welder and nursing staff; standing order for respiratory therapy to do this and to make written entry of daily progress s/p diverticular bleed, right hemicolectomy -s/p PEG -tolerating feeds Hypernatremia -Na 137; continue free water via feeding tube pump @ 45cc's per hour IDDM -Levemir -Novolog standing and sliding scale -fingersticks Multiple pressure ulcers - Stage III sacrum healing, Stage II left ear healing - collagenase to Stage III slough area, silvadene to Stage II left ear - turn and position q2h FLUIDS/ELECTROLYTES/NUTRITION -FLUIDS: 45cc free water hourly via tube feeds pump -ELECTROLYTES: replete as indicated -NUTRITION: Glucerna tube feeds at goal DVT Prophylaxis --SCDs, lovenox DISPO: Transfer to vent floor. Placement issue due to lack of any insurance. Advised case management is working on this. Needs transfer to long-term care facility. DNR.
[2015-09-08] MEDS: CHLORHEXIDINE GLUCONATE 4% CLEANSER FOR DECOLONIZATION TP SCH (21:36)
[2015-09-08] MEDS: INSULIN DETEMIR 100 UNITS/ML MDV SQ SCH (22:08)
[2015-09-09] MEDS: INSULIN (NOVOLOG) ASPART 100 UNITS/ML 10ML VIAL SQ SCH ×8 (00:04→17:21)
[2015-09-09 06:27] LABS: MCH 28.4 pg (25.7-33.7); MCHC 32.2 g/dl (32.0-35.9); MEAN CELL VOLUME 88.1 fl (80-96); MEAN PLT VOLUME 7.5 fl (7.5-11.1); PLATELET COUNT 330 K/MM3 (134-434); RDW 15.6 % (11.9-15.9); WHITE BLOOD COUNT 11.1 K/mm3 (4.0-10.0)
--- NOTE | 2015-09-09 08:43 | PN ---
Progress Note (short form) - Note Progress Note: Progress Note PULM/CCM Patient Name: CRUZ LEE Date of : 1940 Patient Status: Inpatient Attending Provider: Marcella Mcdonald No acute events overnight. AC mode of vent. No overt bleeding overnight. Intake & Output 09/06/15 09/07/15 09/08/15 09/09/15 23:59 23:59 23:59 23:59 Intake Total 1340 2000 1670 2800 Output Total 300 3350 2060 2300 Balance 1040 -1350 -390 500 Weight 161 lb 4.8 oz 158 lb 3.2 oz 160 lb 2 oz 159 lb 3.2 oz Last Vital Signs Temp Pulse Resp BP Pulse Ox 98.4 F 98 H 18 147/73 98 09/09/15 06:00 09/09/15 06:00 09/09/15 07:38 09/09/15 06:00 09/08/15 22:31 Active Medications Acetaminophen (Tylenol Oral Solution -) 650 mg GT Q6H PRN PRN Reason: FEVER Amlodipine Besylate (Norvasc -) 10 mg GT DAILY [facility] Last Admin: 09/08/15 11:01 Dose: 10 mg Chlorhexidine Gluconate (Hibiclens For Decolonization -) 1 applic TP HS [facility] Last Admin: 09/08/15 21:36 Dose: 1 applic Chlorhexidine Gluconate (Peridex -) 15 ml MM BID KWAKU Last Admin: 09/08/15 21:37 Dose: 15 ml Collagenase (Santyl -) 1 applic TP DAILY [facility] Last Admin: 09/08/15 11:02 Dose: 1 applic Ibuprofen (Motrin Oral Suspension -) 200 mg PO Q6H PRN PRN Reason: FEVER Insulin Aspart (Novolog Vial) 5 units SQ Q6HPO KWAKU Last Admin: 09/09/15 06:38 Dose: Not Given Insulin Aspart (Novolog Vial) 0 units SQ Q6HPO KWAKU PRN Reason: Protocol Last Admin: 09/09/15 06:38 Dose: Not Given Insulin Detemir (Levemir Vial) 28 units SQ HS [facility] Last Admin: 09/08/15 22:08 Dose: 28 units Lisinopril (Prinivil -) 40 mg GT DAILY [facility] Last Admin: 09/08/15 11:02 Dose: 40 mg Metoprolol Tartrate (Lopressor -) 125 mg GT BID [facility] Last Admin: 09/08/15 21:36 Dose: 125 mg Metoprolol Tartrate (Lopressor Injection -) 5 mg IVPB Q6H PRN PRN Reason: HYPERTENSION Multivitamins (Thera-Plus -) 5 ml GT DAILY [facility] Last Admin: 09/08/15 11:01 Dose: 5 ml Ondansetron HCl (Zofran Injection -) 4 mg IVPB Q6H PRN PRN Reason: NAUSEA Pantoprazole Sodium (Protonix Packets For Oral Suspension -) 40 mg GT DAILY [facility] Last Admin: 09/08/15 11:02 Dose: 40 mg Silver Sulfadiazine (Silvadene -) 1 applic TP DAILY [facility] Last Admin: 09/08/15 11:02 Dose: 1 applic Gen: Trached, NAD Heart: S1S2 Lung: decreased breath sounds at the bases Abd: soft, (+) BS Groin: no active bleeding Ext: (+) edema Laboratory Results - last 24 hr 09/08/15 09/08/15 09/08/15 00:04 06:22 12:35 WBC RBC Hgb Hct MCV MCHC RDW Plt Count MPV POC Glucometer 190.36806 117.55509 153.44048 09/08/15 09/08/15 09/08/15 18:01 21:46 23:29 WBC RBC Hgb Hct MCV MCHC RDW Plt Count MPV POC Glucometer 121.66741 219.92434 239.25132 09/09/15 09/09/15 05:10 06:24 WBC 11.1 H RBC 2.77 L Hgb 7.9 L Hct 24.5 L MCV 88.1 MCHC 32.2 RDW 15.6 Plt Count 330 MPV 7.5 POC Glucometer 124.00506 IMP: Illiac bleed s/p IR procedure with apparent hemostasis achieved Acute Brainstem CVA S/P Right Hemicoletomy due to Acute Lower Diverticular GI Bleed Acute Blood Loss Anemia Acute Respiratory Failure Pneumonia likely aspiration HTN DM CKD C diff Ag (+) PLAN: - Follow CBC - Enteral feeds as tolerated - DVT/GI prophylaxis - Wean vent as mental status allows - Vent floor Problem List - Problems (1) Anoxic brain damage Code: G93.1 (2) Fever Code: R50.9 (3) 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
[2015-09-09] MEDS: METOPROLOL TARTRATE 50 MG TABLET (FP) GT SCH ×3 (09:08→21:47)
[2015-09-09] MEDS: amLODIPine BESYLATE 10 MG TABLET (FP) GT SCH ×2 (09:08→10:15)
[2015-09-09] MEDS: LISINOPRIL 20 MG TABLET (FP) GT SCH ×2 (09:09→10:15)
[2015-09-09] MEDS: PANTOPRAZOLE SOD 40 MG SUSPENSION PACKET GT SCH ×2 (09:09→10:16)
[2015-09-09] MEDS: SILVER SULFADIAZINE 1% TOP CREAM 50 GM JAR TP SCH ×2 (09:10→10:17)
[2015-09-09] MEDS: MULTIVITAMINS THERAPEUTIC GT SCH ×2 (09:10→10:17)
[2015-09-09] MEDS: COLLAGENASE CLOSTRIDIUM HIST. 30 GRAMS TUBE TP SCH ×2 (09:10→10:16)
--- NOTE | 2015-09-09 10:15 | PN ---
Progress Note (short form) - Note Progress Note: Hospitalist Progress Note SUBJECTIVE: Patient in nonverbal. no purposeful movement noted. Responses to tactile stimuli. Not following commands. OBJECTIVE: Last Vital Signs Temp Pulse Resp BP Pulse Ox 98.4 F 100 H 14 140/70 98 09/09/15 06:00 09/09/15 08:00 09/09/15 08:00 09/09/15 08:00 09/08/15 22:31 GENERAL: Lethargic. Trached. No apparent distress. PULMONARY: Few scattered rhonchi at the bases. CARDIOVASCULAR: nS1,S2, RRR ABDOMINAL: Soft, non-distended, non-tender. + Bowel sounds. Intact PEG. EXTREMITIES: chronic changes, warm, dry NEUROLOGICAL: lethargic, not following commands. Eyes open to tactile stimuli. CBCD WBC 11.1 K/mm3 (4.0-10.0) H 09/09/15 05:10 RBC 2.77 M/mm3 (4.00-5.60) L 09/09/15 05:10 Hgb 7.9 GM/dL (11.7-16.9) L 09/09/15 05:10 Hct 24.5 % (35.4-49) L 09/09/15 05:10 MCV 88.1 fl (80-96) 09/09/15 05:10 MCHC 32.2 g/dl (32.0-35.9) 09/09/15 05:10 RDW 15.6 % (11.9-15.9) 09/09/15 05:10 Plt Count 330 K/MM3 (134-434) 09/09/15 05:10 MPV 7.5 fl (7.5-11.1) 09/09/15 05:10 CMP Sodium 138 mmol/L (136-145) 09/08/15 05:10 Potassium 3.5 mmol/L (3.5-5.1) 09/08/15 05:10 Chloride 101 mmol/L (98-107) 09/08/15 05:10 Carbon Dioxide 30 mmol/L (21-32) 09/08/15 05:10 Anion Gap 7 (8-16) L 09/08/15 05:10 BUN 8 mg/dL (7-18) D 09/08/15 05:10 Creatinine 0.3 mg/dL (0.6-1.3) L D 09/08/15 05:10 Creat Clearance w eGFR > 60 (>60) 09/08/15 05:10 Calcium 9.4 mg/dL (8.5-10.1) 09/08/15 05:10 Total Bilirubin 0.2 mg/dL (0.2-1.0) 09/08/15 05:10 AST 10 U/L (15-37) L D 09/08/15 05:10 ALT 15 U/L (12-78) 09/08/15 05:10 Alkaline Phosphatase 95 U/L (45-117) 09/08/15 05:10 Total Protein 6.7 g/dl (6.4-8.2) 09/08/15 05:10 Albumin 2.6 g/dl (3.4-5.0) L 09/08/15 05:10 Current Medications Generic Name Dose Route Start Last Admin Trade Name Freq PRN Reason Stop Dose Admin Acetaminophen 650 mg 09/09/15 09:29 Tylenol Oral Solution - GT Q6H PRN FEVER Amlodipine Besylate 10 mg 09/09/15 10:00 Norvasc - GT DAILY [facility] Chlorhexidine Gluconate 1 applic 09/09/15 22:00 Hibiclens For Decolonization - TP HS [facility] Chlorhexidine Gluconate 15 ml 09/09/15 10:00 Peridex - MM BID [facility] Collagenase 1 applic 09/09/15 10:00 Santyl - TP DAILY [facility] Ibuprofen 200 mg 09/09/15 09:29 Motrin Oral Suspension - PO Q6H PRN FEVER Insulin Aspart 5 units 09/09/15 12:00 Novolog Vial SQ Q6HPO [facility] Insulin Aspart 0 units 09/09/15 12:00 Novolog Vial SQ Q6HPO [facility] Protocol Insulin Detemir 28 units 09/09/15 22:00 Levemir Vial SQ HS [facility] Lisinopril 40 mg 09/09/15 10:00 Prinivil - GT DAILY [facility] Metoprolol Tartrate 125 mg 09/09/15 10:00 Lopressor - GT BID [facility] Metoprolol Tartrate 5 mg 09/09/15 09:29 Lopressor Injection - IVPB Q6H PRN HYPERTENSION Multivitamins 5 ml 09/09/15 10:00 Thera-Plus - GT DAILY [facility] Ondansetron HCl 4 mg 09/09/15 09:29 Zofran Injection - IVPB Q6H PRN NAUSEA Pantoprazole Sodium 40 mg 09/09/15 10:00 Protonix Packets For Oral Suspension - GT DAILY [facility] Silver Sulfadiazine 1 applic 09/09/15 10:00 Silvadene - TP DAILY [facility] ASSESSMENT/PLAN:This is hospital day #74 for this 75 year-old male with HTN, IDDM, inguinal hernia, and diverticular bleed s/p R hemicolectomy, 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 S/p trach and PEG. S/p embolization of left internal illiac artery bleed on 09/03. Iliac artery bleed s/p embolization -hgb 7.9, stable - no signs of active bleeding Anoxic brain injury s/p brainstem CVA -intermittently able to follow minimal commands to open eyes, squeeze right hand - Eyes only to tactile stimuli Persistent fevers of unknown origin -Persistent leukocytosis -currently afebrile -multiple rounds of cultures negative -09/03 CT scans show no obvious source -esr, crp mildly elevated Hypertension -continue lisinopril, metoprolol, amlodipine Respiratory failure secondary to anoxic brain injury CPAP trial -s/p trach, vent dependent; needs daily pressure support trials; have discussed this with waste oil pumper and nursing staff; standing order for respiratory therapy to do this and to make written entry of daily progress s/p diverticular bleed, right hemicolectomy -s/p PEG -tolerating feeds Hypernatremia -resolved; continue free water via feeding tube pump @ 45cc's per hour IDDM -Levemir -Novolog standing and sliding scale -fingersticks Multiple pressure ulcers - Stage III sacrum healing, Stage II left ear healing - collagenase to Stage III slough area, silvadene to Stage II left ear - turn and position q2h FLUIDS/ELECTROLYTES/NUTRITION -FLUIDS: 45cc free water hourly via tube feeds pump -ELECTROLYTES: replete as indicated -NUTRITION: Glucerna tube feeds at goal DVT Prophylaxis -SCDs, lovenox DISPO: Transfer to vent floor. Placement issue due to lack of any insurance. Advised case management is working on this. Needs transfer to long-term care facility. DNR.
[2015-09-09] MEDS: CHLORHEXIDINE GLUCONATE 0.12% 15ML CUP MM SCH ×2 (11:51→21:47)
[2015-09-09] MEDS: CHLORHEXIDINE GLUCONATE 4% CLEANSER FOR DECOLONIZATION TP SCH (21:47)
[2015-09-09] MEDS: INSULIN DETEMIR 100 UNITS/ML MDV SQ SCH (22:12)
[2015-09-10] MEDS: INSULIN (NOVOLOG) ASPART 100 UNITS/ML 10ML VIAL SQ SCH ×8 (00:04→17:54)
[2015-09-10 06:20] LABS: MCH 28.1 pg (25.7-33.7); MEAN CELL VOLUME 87.9 fl (80-96); MEAN PLT VOLUME 7.5 fl (7.5-11.1); PLATELET COUNT 340 K/MM3 (134-434); RDW 15.7 % (11.9-15.9); WHITE BLOOD COUNT 11.6 K/mm3 (4.0-10.0)
--- NOTE | 2015-09-10 08:48 | PN ---
Progress Note (short form) - Note Progress Note: Seen and examined in the ICU. Awake AC motive vent 35 % FiO2. No acute events overnight. Not following commands. No occult bleeding overnight. H/H stable. Intake & Output 09/07/15 09/08/15 09/09/15 09/10/15 23:59 23:59 23:59 23:59 Intake Total 1999 1670 2800 1200 Output Total 3350 2060 2550 900 Balance -1350 -390 250 300 Weight 71.758 kg 72.631 kg 72.212 kg 71.781 kg Last Vital Signs Temp Pulse Resp BP Pulse Ox 98.7 F 94 H 16 154/74 98 09/10/15 06:00 09/10/15 06:00 09/10/15 08:00 09/10/15 06:00 09/10/15 08:09 Active Medications Generic Name Dose Route Start Last Admin Trade Name Freq PRN Reason Stop Dose Admin Acetaminophen 650 mg 09/09/15 09:29 Tylenol Oral Solution - GT Q6H PRN FEVER Amlodipine Besylate 10 mg 09/09/15 10:00 09/10/15 09:07 Norvasc - GT 10 mg DAILY [facility] Administration Chlorhexidine Gluconate 1 applic 09/09/15 22:00 09/09/15 21:47 Hibiclens For Decolonization - TP 1 applic HS [facility] Administration Chlorhexidine Gluconate 15 ml 09/09/15 10:00 09/09/15 21:47 Peridex - MM 15 ml BID [facility] Administration Collagenase 1 applic 09/09/15 10:00 09/10/15 09:08 Santyl - TP 1 applic DAILY [facility] Administration Ibuprofen 200 mg 09/09/15 09:29 Motrin Oral Suspension - PO Q6H PRN FEVER Insulin Aspart 5 units 09/09/15 12:00 09/10/15 06:24 Novolog Vial SQ Not Given Q6HPO [facility] Insulin Aspart 0 units 09/09/15 12:00 09/10/15 06:25 Novolog Vial SQ Not Given Q6HPO [facility] Protocol Insulin Detemir 28 units 09/09/15 22:00 09/09/15 22:12 Levemir Vial SQ 28 units HS [facility] Administration Lisinopril 40 mg 09/09/15 10:00 09/10/15 09:08 Prinivil - GT 40 mg DAILY [facility] Administration Metoprolol Tartrate 125 mg 09/09/15 10:00 09/10/15 09:07 Lopressor - GT 125 mg BID [facility] Administration Metoprolol Tartrate 5 mg 09/09/15 09:29 Lopressor Injection - IVPB Q6H PRN HYPERTENSION Multivitamins 5 ml 09/09/15 10:00 09/10/15 09:09 Thera-Plus - GT 5 ml DAILY [facility] Administration Ondansetron HCl 4 mg 09/09/15 09:29 Zofran Injection - IVPB Q6H PRN NAUSEA Pantoprazole Sodium 40 mg 09/09/15 10:00 09/10/15 09:08 Protonix Packets For Oral Suspension - GT 40 mg DAILY [facility] Administration Silver Sulfadiazine 1 applic 09/09/15 10:00 09/10/15 09:08 Silvadene - TP 1 applic DAILY [facility] Administration Gen: Trached, no drainage from the tracheostomy site Heart: RRR Lung: Clear Abd: Soft, +bowel sounds, Peg tube intact Ext: No edema Laboratory Last Values WBC 11.6 K/mm3 (4.0-10.0) H 09/10/15 05:00 Corrected WBC (auto) Cancelled 06/26/15 21:50 RBC 2.85 M/mm3 (4.00-5.60) L 09/10/15 05:00 Hgb 8.0 GM/dL (11.7-16.9) L 09/10/15 05:00 Hct 25.1 % (35.4-49) L 09/10/15 05:00 MCV 87.9 fl (80-96) 09/10/15 05:00 MCHC 32.0 g/dl (32.0-35.9) 09/10/15 05:00 RDW 15.7 % (11.9-15.9) 09/10/15 05:00 Plt Count 340 K/MM3 (134-434) 09/10/15 05:00 MPV 7.5 fl (7.5-11.1) 09/10/15 05:00 Add Manual Diff Cancelled 06/26/15 21:50 Neutrophils % 77.2 % (42.8-82.8) 09/06/15 08:17 Lymphocytes % 11.1 % (8-40) 09/06/15 08:17 Monocytes % 7.0 % (3.8-10.2) 09/06/15 08:17 Eosinophils % 3.9 % (0-4.5) 09/06/15 08:17 Basophils % 0.8 % (0-2.0) 09/06/15 08:17 Band Neutrophils 6.0 % (0-10) 06/28/15 09:35 Differential Comment Manual diff done 06/28/15 09:35 Smudge Cells Cancelled 06/26/15 21:50 Platelet Estimate Slt decreased (NORMAL) 06/28/15 09:35 Platelet Comment No clumping noted 06/28/15 09:35 Platelet Comment No clotting detected 06/28/15 09:35 Normal RBC Morphology Cancelled 06/26/15 21:50 RBC Morphology Cancelled 06/26/15 21:50 ESR 66 mm/hr (0-20) H 09/03/15 07:30 INR 1.32 (0.86-1.14) H 09/03/15 19:20 PTT (Actin FS) 28.9 SECONDS (23.5-38.3) 09/03/15 19:20 Anticoagulation Therapy Y 07/11/15 07:07 Puncture Site Right radial 07/11/15 07:07 ABG pH 7.44 (7.35-7.45) 07/11/15 07:07 ABG pCO2 at Pt Temp 42.1 mmHg (35-45) 07/11/15 07:07 ABG pO2 at Pt Temp 113.0 mmHg (70-100) H D 07/11/15 07:07 ABG HCO3 27.8 meq/L (22-26) H 07/11/15 07:07 ABG O2 Sat (Measured) 99.1 % (90-98.9) H 07/11/15 07:07 ABG O2 Content 13.3 % vol (15-22) L 07/11/15 07:07 ABG Base Excess 3.8 meq/l (-2-2) H 07/11/15 07:07 Izaiah Test Positive 07/11/15 07:07 O2 Delivery Device Ventilator 07/11/15 07:07 Oxygen Flow Rate 30% 07/11/15 07:07 Vent Mode A/c 07/11/15 07:07 Vent Rate 10 07/11/15 07:07 Mechanical Rate Yes 07/11/15 07:07 PEEP 5.0 cmH2O 07/11/15 07:07 Pressure Support Vent 500 07/11/15 07:07 Sodium 138 mmol/L (136-145) 09/08/15 05:10 Potassium 3.5 mmol/L (3.5-5.1) 09/08/15 05:10 Chloride 101 mmol/L (98-107) 09/08/15 05:10 Carbon Dioxide 30 mmol/L (21-32) 09/08/15 05:10 Anion Gap 7 (8-16) L 09/08/15 05:10 BUN 8 mg/dL (7-18) D 09/08/15 05:10 Creatinine 0.3 mg/dL (0.6-1.3) L D 09/08/15 05:10 Creat Clearance w eGFR > 60 (>60) 09/08/15 05:10 POC Glucometer 199.40312 UNITS (()) 09/09/15 16:54 Random Glucose 97 mg/dL (74-106) D 09/08/15 05:10 Lactic Acid 1.561 mmol/L (0.4-2.0) 09/03/15 19:00 Calcium 9.4 mg/dL (8.5-10.1) 09/08/15 05:10 Phosphorus 3.3 mg/dL (2.5-4.9) 09/06/15 05:10 Magnesium 2.0 mg/dL (1.8-2.4) 09/06/15 05:10 Total Bilirubin 0.2 mg/dL (0.2-1.0) 09/08/15 05:10 AST 10 U/L (15-37) L D 09/08/15 05:10 ALT 15 U/L (12-78) 09/08/15 05:10 Alkaline Phosphatase 95 U/L (45-117) 09/08/15 05:10 Creatine Kinase 62 IU/L (38-174) 06/28/15 09:35 Creatine Kinase Index 0.7 % (0.0-5.0) 06/26/15 21:50 CK-MB (CK-2) 1.077 ng/ml (0.3-4.0) 06/26/15 21:50 CK-MB (CK-2) Rel Index Cancelled 06/26/15 21:50 Troponin I 0.07 ng/ml (0.03-0.5) D 07/09/15 05:00 C-Reactive Protein 2.1 MG/DL (0.00-0.3) H 09/03/15 07:30 Total Protein 6.7 g/dl (6.4-8.2) 09/08/15 05:10 Albumin 2.6 g/dl (3.4-5.0) L 09/08/15 05:10 Triglycerides 143 mg/dL (35-160) D 09/02/15 06:30 Cholesterol 106 mg/dL (50-200) D 09/02/15 06:30 Total LDL Cholesterol 66 mg/dL 09/02/15 06:30 HDL Cholesterol 26 mg/dL (40-60) L D 09/02/15 06:30 Lipase 140 U/L (73-293) 06/26/15 21:50 Prolactin 19.8 ng/ml (4.0-15.2) H 07/02/15 05:20 Urine Color Yellow 09/01/15 20:00 Urine Appearance Slcloudy 09/01/15 20:00 Urine pH 5.0 (5.0-8.0) 09/01/15 20:00 Ur Specific [place] 1.021 (1.001-1.035) 09/01/15 20:00 Urine Protein Negative (NEGATIVE) 09/01/15 20:00 Urine Glucose (UA) Negative (NEGATIVE) 09/01/15 20:00 Urine Ketones Negative (NEGATIVE) 09/01/15 20:00 Urine Blood Negative (NEGATIVE) 09/01/15 20:00 Urine Nitrite Negative (NEGATIVE) 09/01/15 20:00 Urine Bilirubin Negative (NEGATIVE) 09/01/15 20:00 Urine Urobilinogen Negative E.U./dl (0.2-1.0) 09/01/15 20:00 Ur Leukocyte Esterase Negative (NEGATIVE) 09/01/15 20:00 Urine RBC 180 /hpf (0-3) 07/27/15 15:55 Urine WBC 5 /hpf (3-5) 07/27/15 15:55 Ur Epithelial Cells Rare /hpf (FEW) 07/27/15 15:55 Urine Mucus Rare 07/27/15 15:55 Stool Occult Blood Negative (NEGATIVE) 07/02/15 12:00 Hepatitis C Ab (EIA) <0.1 s/co ratio (0.0-0.9) 07/03/15 05:15 Blood Type O POSITIVE 09/03/15 18:48 Antibody Screen Negative 09/03/15 18:48 Crossmatch See Detail 09/03/15 19:20 Crossmatch IS Only See Detail 06/26/15 21:50 Spec Expiration Date 06/26/15 21:50 IMP: Illiac bleed s/p IR procedure with apparent hemostasis achieved Acute Brainstem CVA S/P Right Hemicoletomy due to Acute Lower Diverticular GI Bleed Acute Blood Loss Anemia Acute Respiratory Failure Pneumonia likely aspiration HTN DM CKD C diff Ag (+) PLAN: - Follow CBC - Enteral feeds as tolerated - DVT/GI prophylaxis - Wean vent as mental status allows - Vent floor Dr. Agosto Documentation prepared by Linsey Hollins, acting as expert medical writer for Saman Agosto MD.
[2015-09-10] MEDS: amLODIPine BESYLATE 10 MG TABLET (FP) GT SCH (09:07)
[2015-09-10] MEDS: METOPROLOL TARTRATE 50 MG TABLET (FP) GT SCH ×2 (09:07→21:14)
[2015-09-10] MEDS: SILVER SULFADIAZINE 1% TOP CREAM 50 GM JAR TP SCH (09:08)
[2015-09-10] MEDS: PANTOPRAZOLE SOD 40 MG SUSPENSION PACKET GT SCH (09:08)
[2015-09-10] MEDS: COLLAGENASE CLOSTRIDIUM HIST. 30 GRAMS TUBE TP SCH (09:08)
[2015-09-10] MEDS: LISINOPRIL 20 MG TABLET (FP) GT SCH (09:08)
[2015-09-10] MEDS: MULTIVITAMINS THERAPEUTIC GT SCH (09:09)
[2015-09-10] MEDS: CHLORHEXIDINE GLUCONATE 0.12% 15ML CUP MM SCH ×2 (13:25→21:14)
--- NOTE | 2015-09-10 16:08 | PN ---
Progress Note (short form) - Note Progress Note: Hospitalist Progress Note SUBJECTIVE: Patient in nonverbal. no purposeful movement noted. Responses to tactile stimuli. Not following commands. OBJECTIVE: Last Vital Signs Temp Pulse Resp BP Pulse Ox 98.7 F 85 20 154/64 97 09/10/15 06:00 09/10/15 14:00 09/10/15 15:25 09/10/15 14:00 09/10/15 11:08 GENERAL: Lethargic. Trached. No apparent distress. PULMONARY: Few scattered rhonchi at the bases. CARDIOVASCULAR: nS1,S2, RRR ABDOMINAL: Soft, non-distended, non-tender. + Bowel sounds. Intact PEG. EXTREMITIES: chronic changes, warm, dry NEUROLOGICAL: lethargic, not following commands. Eyes open to tactile stimuli. CBCD WBC 11.6 K/mm3 (4.0-10.0) H 09/10/15 05:00 RBC 2.85 M/mm3 (4.00-5.60) L 09/10/15 05:00 Hgb 8.0 GM/dL (11.7-16.9) L 09/10/15 05:00 Hct 25.1 % (35.4-49) L 09/10/15 05:00 MCV 87.9 fl (80-96) 09/10/15 05:00 MCHC 32.0 g/dl (32.0-35.9) 09/10/15 05:00 RDW 15.7 % (11.9-15.9) 09/10/15 05:00 Plt Count 340 K/MM3 (134-434) 09/10/15 05:00 MPV 7.5 fl (7.5-11.1) 09/10/15 05:00 CMP Sodium 138 mmol/L (136-145) 09/08/15 05:10 Potassium 3.5 mmol/L (3.5-5.1) 09/08/15 05:10 Chloride 101 mmol/L (98-107) 09/08/15 05:10 Carbon Dioxide 30 mmol/L (21-32) 09/08/15 05:10 Anion Gap 7 (8-16) L 09/08/15 05:10 BUN 8 mg/dL (7-18) D 09/08/15 05:10 Creatinine 0.3 mg/dL (0.6-1.3) L D 09/08/15 05:10 Creat Clearance w eGFR > 60 (>60) 09/08/15 05:10 Calcium 9.4 mg/dL (8.5-10.1) 09/08/15 05:10 Total Bilirubin 0.2 mg/dL (0.2-1.0) 09/08/15 05:10 AST 10 U/L (15-37) L D 09/08/15 05:10 ALT 15 U/L (12-78) 09/08/15 05:10 Alkaline Phosphatase 95 U/L (45-117) 09/08/15 05:10 Total Protein 6.7 g/dl (6.4-8.2) 09/08/15 05:10 Albumin 2.6 g/dl (3.4-5.0) L 09/08/15 05:10 Current Medications Generic Name Dose Route Start Last Admin Trade Name Freq PRN Reason Stop Dose Admin Acetaminophen 650 mg 09/09/15 09:29 Tylenol Oral Solution - GT Q6H PRN FEVER Amlodipine Besylate 10 mg 09/09/15 10:00 09/10/15 09:07 Norvasc - GT 10 mg DAILY [facility] Administration Chlorhexidine Gluconate 1 applic 09/09/15 22:00 09/09/15 21:47 Hibiclens For Decolonization - TP 1 applic HS [facility] Administration Chlorhexidine Gluconate 15 ml 09/09/15 10:00 09/10/15 13:25 Peridex - MM 15 ml BID [facility] Administration Collagenase 1 applic 09/09/15 10:00 09/10/15 09:08 Santyl - TP 1 applic DAILY [facility] Administration Ibuprofen 200 mg 09/09/15 09:29 Motrin Oral Suspension - PO Q6H PRN FEVER Insulin Aspart 5 units 09/09/15 12:00 09/10/15 13:16 Novolog Vial SQ Not Given Q6HPO [facility] Insulin Aspart 0 units 09/09/15 12:00 09/10/15 11:40 Novolog Vial SQ Not Given Q6HPO [facility] Protocol Insulin Detemir 28 units 09/09/15 22:00 09/09/15 22:12 Levemir Vial SQ 28 units HS [facility] Administration Lisinopril 40 mg 09/09/15 10:00 09/10/15 09:08 Prinivil - GT 40 mg DAILY [facility] Administration Metoprolol Tartrate 125 mg 09/09/15 10:00 09/10/15 09:07 Lopressor - GT 125 mg BID [facility] Administration Metoprolol Tartrate 5 mg 09/09/15 09:29 Lopressor Injection - IVPB Q6H PRN HYPERTENSION Multivitamins 5 ml 09/09/15 10:00 09/10/15 09:09 Thera-Plus - GT 5 ml DAILY [facility] Administration Ondansetron HCl 4 mg 09/09/15 09:29 Zofran Injection - IVPB Q6H PRN NAUSEA Pantoprazole Sodium 40 mg 09/09/15 10:00 09/10/15 09:08 Protonix Packets For Oral Suspension - GT 40 mg DAILY [facility] Administration Silver Sulfadiazine 1 applic 09/09/15 10:00 09/10/15 09:08 Silvadene - TP 1 applic DAILY [facility] Administration ASSESSMENT/PLAN:This is hospital day #74 for this 75 year-old male with HTN, IDDM, inguinal hernia, and diverticular bleed s/p R hemicolectomy, 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 S/p trach and PEG. S/p embolization of left internal illiac artery bleed on 09/03. Iliac artery bleed s/p embolization - stable - no signs of active bleeding Anoxic brain injury s/p brainstem CVA - was intermittently able to follow minimal commands to open eyes, squeeze right hand - not currently following commands - Eyes only to tactile stimuli Persistent fevers of unknown origin -Persistent leukocytosis -currently afebrile -multiple rounds of cultures negative -09/03 CT scans show no obvious source -esr, crp mildly elevated - repeat c.dif negative Hypertension -continue lisinopril, metoprolol, amlodipine Respiratory failure secondary to anoxic brain injury -CPAP trials -s/p trach, vent dependent; needs daily pressure support trials; have discussed this with plate mill hand and nursing staff; standing order for respiratory therapy to do this and to make written entry of daily progress s/p diverticular bleed, right hemicolectomy -s/p PEG -tolerating feeds Hypernatremia -resolved; continue free water via feeding tube pump @ 45cc's per hour IDDM -Levemir -Novolog standing and sliding scale -fingersticks Multiple pressure ulcers - Stage III sacrum healing, Stage II left ear healing - collagenase to Stage III slough area, silvadene to Stage II left ear - turn and position q2h FEN: -FLUIDS: 45cc free water hourly via tube feeds pump -ELECTROLYTES: replete as indicated -NUTRITION: Glucerna tube feeds DVT Prophylaxis -SCDs, lovenox DISPO: Transfer to vent floor. Placement issue due to lack of any insurance. Advised case management is working on this. Needs transfer to long-term care facility. DNR.
[2015-09-10] MEDS: CHLORHEXIDINE GLUCONATE 4% CLEANSER FOR DECOLONIZATION TP SCH (21:00)
[2015-09-10] MEDS: INSULIN DETEMIR 100 UNITS/ML MDV SQ SCH (21:13)
[2015-09-11] MEDS: INSULIN (NOVOLOG) ASPART 100 UNITS/ML 10ML VIAL SQ SCH ×10 (00:39→23:32)
[2015-09-11] MEDS: amLODIPine BESYLATE 10 MG TABLET (FP) GT SCH ×2 (10:00→11:13)
[2015-09-11] MEDS: METOPROLOL TARTRATE 50 MG TABLET (FP) GT SCH ×3 (10:00→21:44)
[2015-09-11] MEDS: LISINOPRIL 20 MG TABLET (FP) GT SCH ×2 (10:00→11:13)
[2015-09-11] MEDS: CHLORHEXIDINE GLUCONATE 0.12% 15ML CUP MM SCH ×2 (11:13→21:44)
[2015-09-11] MEDS: PANTOPRAZOLE SOD 40 MG SUSPENSION PACKET GT SCH (11:14)
[2015-09-11] MEDS: MULTIVITAMINS THERAPEUTIC GT SCH (11:14)
[2015-09-11] MEDS: COLLAGENASE CLOSTRIDIUM HIST. 30 GRAMS TUBE TP SCH (11:14)
[2015-09-11] MEDS: SILVER SULFADIAZINE 1% TOP CREAM 50 GM JAR TP SCH (11:14)
--- NOTE | 2015-09-11 14:03 | PN ---
Progress Note, Physician History of Present Illness: PULMONARY POORLY RESPONSIVE ON VENT SUPPORT AC MODE,-RESP DISTRESS - Current Medication List Current Medications: Active Medications Acetaminophen (Tylenol Oral Solution -) 650 mg GT Q6H PRN PRN Reason: FEVER Amlodipine Besylate (Norvasc -) 10 mg GT DAILY [facility] Last Admin: 09/11/15 10:00 Dose: 10 mg Chlorhexidine Gluconate (Hibiclens For Decolonization -) 1 applic TP HS [facility] Last Admin: 09/10/15 21:00 Dose: 1 applic Chlorhexidine Gluconate (Peridex -) 15 ml MM BID [facility] Last Admin: 09/11/15 11:13 Dose: 15 ml Collagenase (Santyl -) 1 applic TP DAILY [facility] Last Admin: 09/11/15 11:14 Dose: 1 applic Ibuprofen (Motrin Oral Suspension -) 200 mg PO Q6H PRN PRN Reason: FEVER Insulin Aspart (Novolog Vial) 5 units SQ Q6HPO [facility] Last Admin: 09/11/15 12:17 Dose: 5 units Insulin Aspart (Novolog Vial) 0 units SQ Q6HPO [facility] PRN Reason: Protocol Last Admin: 09/11/15 12:18 Dose: 4 units Insulin Detemir (Levemir Vial) 28 units SQ HS [facility] Last Admin: 09/10/15 21:13 Dose: 28 units Lisinopril (Prinivil -) 40 mg GT DAILY [facility] Last Admin: 09/11/15 10:00 Dose: 40 mg Metoprolol Tartrate (Lopressor -) 125 mg GT BID [facility] Last Admin: 09/11/15 10:00 Dose: 125 mg Metoprolol Tartrate (Lopressor Injection -) 5 mg IVPB Q6H PRN PRN Reason: HYPERTENSION Multivitamins (Thera-Plus -) 5 ml GT DAILY [facility] Last Admin: 09/11/15 11:14 Dose: 5 ml Ondansetron HCl (Zofran Injection -) 4 mg IVPB Q6H PRN PRN Reason: NAUSEA Pantoprazole Sodium (Protonix Packets For Oral Suspension -) 40 mg GT DAILY [facility] Last Admin: 09/11/15 11:14 Dose: 40 mg Silver Sulfadiazine (Silvadene -) 1 applic TP DAILY [facility] Last Admin: 09/11/15 11:14 Dose: 1 applic - Objective Vital Signs: Vital Signs Temperature 99.4 F 09/11/15 08:57 Pulse Rate 111 H 09/11/15 08:57 Respiratory Rate 12 09/11/15 10:30 Blood Pressure 145/75 09/11/15 08:57 O2 Sat by Pulse Oximetry (%) 99 09/11/15 10:30 Constitutional: Yes: Thin, Other (POORLY RESPONSIVE) Eyes: Yes: WNL HENT: Yes: WNL, Atraumatic, Normocephalic Neck: Yes: Supple (TRACHED) Cardiovascular: Yes: Regular Rate and Rhythm, S1, S2 Respiratory: Yes: Diminished Gastrointestinal: Yes: WNL Extremities: Yes: WNL Edema: No Labs: CBC, BMP 09/10/15 05:00 09/08/15 05:10 INR, PTT INR 1.32 (0.86-1.14) H 09/03/15 19:20 Problem List - Problems (1) Anoxic brain damage Code: G93.1 (2) Lower GI bleed Code: K92.2 (3) 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 Qualifier Code: (J96.20) Acute and chronic respiratory failure, unspecified whether with hypoxia or hypercapnia (5) Fever Code: R50.9 (6) CVA (cerebral vascular accident) Code: I63.9 Qualifiers: CVA mechanism: unspecified Qualifier Code: (I63.9) Cerebral infarction , unspecified (7) Acute blood loss anemia Code: D62 (8) Acute brainstem infarction Code: I63.8 (9) CKD (chronic kidney disease) Code: N18.9 (10) Pneumonia Code: J18.9 Assessment/Plan IMP: Illiac bleed s/p IR procedure with apparent hemostasis achieved Acute Brainstem CVA S/P Right Hemicoletomy due to Acute Lower Diverticular GI Bleed Acute Blood Loss Anemia Acute Respiratory Failure Pneumonia likely aspiration HTN DM CKD C diff Ag (+) PLAN: - Follow CBC - Enteral feeds as tolerated - DVT/GI prophylaxis - Wean vent as mental status allows - Vent floor - pt will require placement in in ventilator unit in [facility]dc care facility DR HENRY
--- NOTE | 2015-09-11 17:12 | PN ---
Progress Note (short form) - Note Progress Note: Subjective: pt seen and examined at bedside, spontaneous eye movement noted, no purposeful movement, appears comfortable Objective: Last Vital Signs Temp Pulse Resp BP Pulse Ox 99.6 F 80 16 145/75 99 09/11/15 15:03 09/11/15 15:03 09/11/15 15:03 09/11/15 08:57 09/11/15 10:30 PE: Neuro: spontaneous eye movement Pulm: Course BS, trach placed Cv: s1 s2 rrr no mrg Abd: peg tube CDI, soft, +Bs Ext: LUE edema +2, no lower ext edema Vent Settings: CPAP /10/500/30/5 CBCD WBC 11.6 K/mm3 (4.0-10.0) H 09/10/15 05:00 RBC 2.85 M/mm3 (4.00-5.60) L 09/10/15 05:00 Hgb 8.0 GM/dL (11.7-16.9) L 09/10/15 05:00 Hct 25.1 % (35.4-49) L 09/10/15 05:00 MCV 87.9 fl (80-96) 09/10/15 05:00 MCHC 32.0 g/dl (32.0-35.9) 09/10/15 05:00 RDW 15.7 % (11.9-15.9) 09/10/15 05:00 Plt Count 340 K/MM3 (134-434) 09/10/15 05:00 MPV 7.5 fl (7.5-11.1) 09/10/15 05:00 Current Medications Generic Name Dose Route Start Last Admin Trade Name Freq PRN Reason Stop Dose Admin Acetaminophen 650 mg 09/09/15 09:29 Tylenol Oral Solution - GT Q6H PRN FEVER Amlodipine Besylate 10 mg 09/09/15 10:00 09/11/15 10:00 Norvasc - GT 10 mg DAILY [facility] Administration Chlorhexidine Gluconate 1 applic 09/09/15 22:00 09/10/15 21:00 Hibiclens For Decolonization - TP 1 applic HS [facility] Administration Chlorhexidine Gluconate 15 ml 09/09/15 10:00 09/11/15 11:13 Peridex - MM 15 ml BID [facility] Administration Collagenase 1 applic 09/09/15 10:00 09/11/15 11:14 Santyl - TP 1 applic DAILY [facility] Administration Ibuprofen 200 mg 09/09/15 09:29 Motrin Oral Suspension - PO Q6H PRN FEVER Insulin Aspart 5 units 09/09/15 12:00 09/11/15 12:17 Novolog Vial SQ 5 units Q6HPO [facility] Administration Insulin Aspart 0 units 09/09/15 12:00 09/11/15 12:18 Novolog Vial SQ 4 units Q6HPO [facility] Administration Protocol Insulin Detemir 28 units 09/09/15 22:00 09/10/15 21:13 Levemir Vial SQ 28 units HS [facility] Administration Lisinopril 40 mg 09/09/15 10:00 09/11/15 10:00 Prinivil - GT 40 mg DAILY [facility] Administration Metoprolol Tartrate 125 mg 09/09/15 10:00 09/11/15 10:00 Lopressor - GT 125 mg BID [facility] Administration Metoprolol Tartrate 5 mg 09/09/15 09:29 Lopressor Injection - IVPB Q6H PRN HYPERTENSION Multivitamins 5 ml 09/09/15 10:00 09/11/15 11:14 Thera-Plus - GT 5 ml DAILY [facility] Administration Ondansetron HCl 4 mg 09/09/15 09:29 Zofran Injection - IVPB Q6H PRN NAUSEA Pantoprazole Sodium 40 mg 09/09/15 10:00 09/11/15 11:14 Protonix Packets For Oral Suspension - GT 40 mg DAILY [facility] Administration Silver Sulfadiazine 1 applic 09/09/15 10:00 09/11/15 11:14 Silvadene - TP 1 applic DAILY [facility] Administration Assessment: 75 year old male with PMHx of HTN, IDDM, inguinal hernia who presented to the ED with diverticular bleed s/p R hemicolectomy with hospital course complicated by 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 Plan: 1.Anoxic brain injury s/p brainstem CVA - Currently not following commands, eyes open to tactile stimuli 2. Persistent fevers of unknown origin - Persistent leukocytosis with continuously negative blood cultures - Diarrhea resolved, c diff negative - Likely neurogenic 3. Respiratory failure secondary to anoxic brain injury - s/p trach, vent dependent - Cont CPAP trials - Daily pressure support trails per RT 4. Iliac artery bleed s/p embolization 09/03 - Hgb Stable 5. HTN - Continue lisinopril, metoprolol, amlodipine 6. Multiple pressure ulcers - Stage III sacrum healing, Stage II left ear healing, per wound care assessment - Collagenase to Stage III slough area, silvadene to Stage II left ear - turn and position q2h 7. S/p diverticular bleed with right hemicolectomy -s/p PEG with continuous tube feeds 8. Hypernatremia -resolved; continue free water via feeding tube pump @ 45cc's per hour 9. IDDM - Levemir 28units HS - ISS BGM ACHS FEN: -FLUIDS: 45cc free water hourly via tube feeds pump -ELECTROLYTES: replete as indicated -NUTRITION: Glucerna tube feeds DVT Prophylaxis: SCDs, lovenox DISPO: Transfer to vent floor. Placement issue due to lack of any insurance. Advised case management is working on this. Needs transfer to long-term care facility. DNR. Placement issue due to lack of any insurance. Advised case management is working on this. Needs transfer to long-term care facility. DNR.
[2015-09-11] MEDS: CHLORHEXIDINE GLUCONATE 4% CLEANSER FOR DECOLONIZATION TP SCH (21:44)
[2015-09-11] MEDS: INSULIN DETEMIR 100 UNITS/ML MDV SQ SCH (23:00)
[2015-09-12] MEDS: INSULIN (NOVOLOG) ASPART 100 UNITS/ML 10ML VIAL SQ SCH ×10 (06:46→23:04)
[2015-09-12 07:48] LABS: BASOPHIL 0.7 % (0-2.0); MCHC 33.2 g/dl (32.0-35.9); MEAN CELL VOLUME 87.4 fl (80-96); MEAN PLT VOLUME 6.8 fl (7.5-11.1); NEUTROPHILS 70.3 % (42.8-82.8); PLATELET COUNT 311 K/MM3 (134-434); RDW 15.5 % (11.9-15.9); WHITE BLOOD COUNT 9.9 K/mm3 (4.0-10.0)
[2015-09-12 08:51] LABS: CALCIUM 9.1 mg/dL (8.5-10.1); CREATININE 0.5 mg/dL (0.6-1.3)
[2015-09-12] MEDS: METOPROLOL TARTRATE 50 MG TABLET (FP) GT SCH ×2 (11:01→21:27)
[2015-09-12] MEDS: amLODIPine BESYLATE 10 MG TABLET (FP) GT SCH (11:01)
[2015-09-12] MEDS: PANTOPRAZOLE SOD 40 MG SUSPENSION PACKET GT SCH (11:02)
[2015-09-12] MEDS: COLLAGENASE CLOSTRIDIUM HIST. 30 GRAMS TUBE TP SCH (11:02)
[2015-09-12] MEDS: CHLORHEXIDINE GLUCONATE 0.12% 15ML CUP MM SCH ×2 (11:02→23:00)
[2015-09-12] MEDS: LISINOPRIL 20 MG TABLET (FP) GT SCH (11:02)
[2015-09-12] MEDS: SILVER SULFADIAZINE 1% TOP CREAM 50 GM JAR TP SCH (11:03)
[2015-09-12] MEDS: MULTIVITAMINS THERAPEUTIC GT SCH (11:03)
--- NOTE | 2015-09-12 15:36 | PN ---
Progress Note (short form) - Note Progress Note: Subjective: pt seen and examined at bedside, no change. non verbal, appears comfortable. Objective: Last Vital Signs Temp Pulse Resp BP Pulse Ox 99.3 F 86 18 169/91 98 09/12/15 15:05 09/12/15 15:05 09/12/15 15:05 09/12/15 15:05 09/12/15 11:54 PE: Neuro: spontaneous eye movement Pulm: Course BS, trach placed Cv: s1 s2 rrr no mrg Abd: peg tube CDI, soft, +Bs Ext: LUE edema +2, no lower ext edema Vent Settings: CPAP /10/500/30/10 CBCD WBC 9.9 K/mm3 (4.0-10.0) 09/12/15 06:00 RBC 2.76 M/mm3 (4.00-5.60) L 09/12/15 06:00 Hgb 8.0 GM/dL (11.7-16.9) L 09/12/15 06:00 Hct 24.1 % (35.4-49) L 09/12/15 06:00 MCV 87.4 fl (80-96) 09/12/15 06:00 MCHC 33.2 g/dl (32.0-35.9) 09/12/15 06:00 RDW 15.5 % (11.9-15.9) 09/12/15 06:00 Plt Count 311 K/MM3 (134-434) 09/12/15 06:00 MPV 6.8 fl (7.5-11.1) L 09/12/15 06:00 CMP Sodium 137 mmol/L (136-145) 09/12/15 06:00 Potassium 3.7 mmol/L (3.5-5.1) 09/12/15 06:00 Chloride 97 mmol/L (98-107) L 09/12/15 06:00 Carbon Dioxide 31 mmol/L (21-32) 09/12/15 06:00 Anion Gap 9 (8-16) 09/12/15 06:00 BUN 12 mg/dL (7-18) D 09/12/15 06:00 Creatinine 0.5 mg/dL (0.6-1.3) L D 09/12/15 06:00 Creat Clearance w eGFR > 60 (>60) 09/08/15 05:10 Calcium 9.1 mg/dL (8.5-10.1) 09/12/15 06:00 Total Bilirubin 0.2 mg/dL (0.2-1.0) 09/08/15 05:10 AST 10 U/L (15-37) L D 09/08/15 05:10 ALT 15 U/L (12-78) 09/08/15 05:10 Alkaline Phosphatase 95 U/L (45-117) 09/08/15 05:10 Total Protein 6.7 g/dl (6.4-8.2) 09/08/15 05:10 Albumin 2.6 g/dl (3.4-5.0) L 09/08/15 05:10 Current Medications Generic Name Dose Route Start Last Admin Trade Name Freq PRN Reason Stop Dose Admin Acetaminophen 650 mg 09/09/15 09:29 Tylenol Oral Solution - GT Q6H PRN FEVER Amlodipine Besylate 10 mg 09/09/15 10:00 09/12/15 11:01 Norvasc - GT 10 mg DAILY [facility] Administration Chlorhexidine Gluconate 1 applic 09/09/15 22:00 09/11/15 21:44 Hibiclens For Decolonization - TP 1 applic HS [facility] Administration Chlorhexidine Gluconate 15 ml 09/09/15 10:00 09/12/15 11:02 Peridex - MM 15 ml BID [facility] Administration Collagenase 1 applic 09/09/15 10:00 09/12/15 11:02 Santyl - TP 1 applic DAILY [facility] Administration Ibuprofen 200 mg 09/09/15 09:29 Motrin Oral Suspension - PO Q6H PRN FEVER Insulin Aspart 5 units 09/09/15 12:00 09/12/15 06:46 Novolog Vial SQ 5 units Q6HPO [facility] Administration Insulin Aspart 0 units 09/09/15 12:00 09/12/15 06:47 Novolog Vial SQ 2 units Q6HPO [facility] Administration Protocol Insulin Detemir 28 units 09/09/15 22:00 09/11/15 23:00 Levemir Vial SQ 28 units HS [facility] Administration Lisinopril 40 mg 09/09/15 10:00 09/12/15 11:02 Prinivil - GT 40 mg DAILY [facility] Administration Metoprolol Tartrate 125 mg 09/09/15 10:00 09/12/15 11:01 Lopressor - GT 125 mg BID [facility] Administration Metoprolol Tartrate 5 mg 09/09/15 09:29 Lopressor Injection - IVPB Q6H PRN HYPERTENSION Multivitamins 5 ml 09/09/15 10:00 09/12/15 11:03 Thera-Plus - GT 5 ml DAILY [facility] Administration Ondansetron HCl 4 mg 09/09/15 09:29 Zofran Injection - IVPB Q6H PRN NAUSEA Pantoprazole Sodium 40 mg 09/09/15 10:00 09/12/15 11:02 Protonix Packets For Oral Suspension - GT 40 mg DAILY [facility] Administration Silver Sulfadiazine 1 applic 09/09/15 10:00 09/12/15 11:03 Silvadene - TP 1 applic DAILY [facility] Administration Assessment: 75 year old male with PMHx of HTN, IDDM, inguinal hernia who presented to the ED with diverticular bleed s/p R hemicolectomy with hospital course complicated by 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 Plan: 1.Anoxic brain injury s/p brainstem CVA - Currently not following commands, eyes open to tactile stimuli 2. Leukocytosis - Resolved - Afebrile, culture data negative 3. Respiratory failure secondary to anoxic brain injury - s/p trach, vent dependent - Cont CPAP trials - Daily pressure support trails per RT 4. Iliac artery bleed s/p embolization 09/03 - Hgb Stable 5. HTN - Continue lisinopril, metoprolol, amlodipine 6. Multiple pressure ulcers - Stage III sacrum healing, Stage II left ear healing, per wound care assessment - Collagenase to Stage III slough area, silvadene to Stage II left ear - turn and position q2h 7. S/p diverticular bleed with right hemicolectomy - S/p PEG with continuous tube feeds 8. Hypernatremia - Resolved; continue free water via feeding tube pump @ 45cc's per hour 9. IDDM - Levemir 28units HS - ISS BGM ACHS FEN: -FLUIDS: 45cc free water hourly via tube feeds pump -ELECTROLYTES: replete as indicated -NUTRITION: Glucerna tube feeds DVT Prophylaxis: SCDs, lovenox DISPO: Transfer to vent floor. Placement issue due to lack of any insurance. Advised case management is working on this. Needs transfer to long-term care facility. DNR. working on this. Needs transfer to long-term care facility. DNR.
[2015-09-12] MEDS: INSULIN DETEMIR 100 UNITS/ML MDV SQ SCH (21:26)
[2015-09-12] MEDS: CHLORHEXIDINE GLUCONATE 4% CLEANSER FOR DECOLONIZATION TP SCH (21:28)
[2015-09-13] MEDS: INSULIN (NOVOLOG) ASPART 100 UNITS/ML 10ML VIAL SQ SCH ×8 (05:44→23:01)
[2015-09-13 07:42] LABS: BASOPHIL 0.6 % (0-2.0); EOSINOPHIL 5.6 % (0-4.5); MCH 29.1 pg (25.7-33.7); MCHC 33.5 g/dl (32.0-35.9); MEAN CELL VOLUME 86.8 fl (80-96); MEAN PLT VOLUME 6.8 fl (7.5-11.1); NEUTROPHILS 70.7 % (42.8-82.8); PLATELET COUNT 282 K/MM3 (134-434); RDW 15.3 % (11.9-15.9); WHITE BLOOD COUNT 9.8 K/mm3 (4.0-10.0)
--- NOTE | 2015-09-13 10:21 | PN ---
Progress Note (short form) - Note Progress Note: Subjective: pt seen and examined at bedside, no acute events noted overnight. Objective: Last Vital Signs Temp Pulse Resp BP Pulse Ox 99.1 F 86 18 140/75 98 09/13/15 05:55 09/13/15 05:55 09/13/15 05:55 09/13/15 05:55 09/12/15 22:00 PE: Neuro: spontaneous eye movement Pulm: Course BS, trach placed Cv: s1 s2 rrr no mrg Abd: peg tube CDI, soft, +Bs Ext: LUE edema +2, no lower ext edema, warm to touch Vent Settings: CPAP/10/500/30/10 CBCD WBC 9.8 K/mm3 (4.0-10.0) 09/13/15 07:00 RBC 2.64 M/mm3 (4.00-5.60) L 09/13/15 07:00 Hgb 7.7 GM/dL (11.7-16.9) L 09/13/15 07:00 Hct 23.0 % (35.4-49) L 09/13/15 07:00 MCV 86.8 fl (80-96) 09/13/15 07:00 MCHC 33.5 g/dl (32.0-35.9) 09/13/15 07:00 RDW 15.3 % (11.9-15.9) 09/13/15 07:00 Plt Count 282 K/MM3 (134-434) 09/13/15 07:00 MPV 6.8 fl (7.5-11.1) L 09/13/15 07:00 Current Medications Generic Name Dose Route Start Last Admin Trade Name Freq PRN Reason Stop Dose Admin Acetaminophen 650 mg 09/09/15 09:29 Tylenol Oral Solution - GT Q6H PRN FEVER Amlodipine Besylate 10 mg 09/09/15 10:00 09/12/15 11:01 Norvasc - GT 10 mg DAILY [facility] Administration Chlorhexidine Gluconate 1 applic 09/09/15 22:00 09/12/15 21:28 Hibiclens For Decolonization - TP Not Given HS [facility]U Chlorhexidine Gluconate 15 ml 09/09/15 10:00 09/12/15 23:00 Peridex - MM 15 ml BID [facility] Administration Collagenase 1 applic 09/09/15 10:00 09/12/15 11:02 Santyl - TP 1 applic DAILY [facility] Administration Ibuprofen 200 mg 09/09/15 09:29 Motrin Oral Suspension - PO Q6H PRN FEVER Insulin Aspart 5 units 09/09/15 12:00 09/13/15 05:44 Novolog Vial SQ 5 units Q6HPO [facility] Administration Insulin Aspart 0 units 09/09/15 12:00 09/13/15 05:47 Novolog Vial SQ 2 units Q6HPO [facility] Administration Protocol Insulin Detemir 28 units 09/09/15 22:00 09/12/15 21:26 Levemir Vial SQ 28 units HS [facility] Administration Lisinopril 40 mg 09/09/15 10:00 09/12/15 11:02 Prinivil - GT 40 mg DAILY [facility] Administration Metoprolol Tartrate 125 mg 09/09/15 10:00 09/12/15 21:27 Lopressor - GT 125 mg BID [facility] Administration Metoprolol Tartrate 5 mg 09/09/15 09:29 Lopressor Injection - IVPB Q6H PRN HYPERTENSION Multivitamins 5 ml 09/09/15 10:00 09/12/15 11:03 Thera-Plus - GT 5 ml DAILY [facility] Administration Ondansetron HCl 4 mg 09/09/15 09:29 Zofran Injection - IVPB Q6H PRN NAUSEA Pantoprazole Sodium 40 mg 09/09/15 10:00 09/12/15 11:02 Protonix Packets For Oral Suspension - GT 40 mg DAILY [facility] Administration Silver Sulfadiazine 1 applic 09/09/15 10:00 09/12/15 11:03 Silvadene - TP 1 applic DAILY [facility] Administration Assessment: 75 year old male with PMHx of HTN, IDDM, inguinal hernia who presented to the ED with diverticular bleed s/p R hemicolectomy with hospital course complicated by 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 Plan: 1.Anoxic brain injury s/p brainstem CVA - Currently not following commands, eyes open to tactile stimuli 2. Respiratory failure secondary to anoxic brain injury - s/p trach, vent dependent - Cont CPAP trials - Daily pressure support trails per RT 3. Iliac artery bleed s/p embolization 09/03 - Hgb minor decrease, monitor for bleeding 4. HTN - Continue lisinopril, metoprolol, amlodipine 5. Multiple pressure ulcers - Stage III sacrum healing, Stage II left ear healing, per wound care assessment - Collagenase to Stage III slough area, silvadene to Stage II left ear - turn and position q2h 6. S/p diverticular bleed with right hemicolectomy - S/p PEG with continuous tube feeds 9. Hypernatremia - Resolved; continue free water via feeding tube pump @ 45cc's per hour 10. IDDM - Levemir 28units HS - ISS BGM ACHS FEN: -FLUIDS: 45cc free water hourly via tube feeds pump -ELECTROLYTES: replete as indicated -NUTRITION: Glucerna tube feeds DVT Prophylaxis: SCDs, lovenox DISPO: Placement issue due to lack of any insurance. Advised case management is working on this. Needs transfer to long-term care facility. DNR.
[2015-09-13] MEDS: METOPROLOL TARTRATE 50 MG TABLET (FP) GT SCH ×2 (10:30→22:46)
[2015-09-13] MEDS: amLODIPine BESYLATE 10 MG TABLET (FP) GT SCH (10:31)
[2015-09-13] MEDS: COLLAGENASE CLOSTRIDIUM HIST. 30 GRAMS TUBE TP SCH (10:31)
[2015-09-13] MEDS: LISINOPRIL 20 MG TABLET (FP) GT SCH (10:31)
[2015-09-13] MEDS: MULTIVITAMINS THERAPEUTIC GT SCH (10:33)
[2015-09-13] MEDS: SILVER SULFADIAZINE 1% TOP CREAM 50 GM JAR TP SCH (10:33)
[2015-09-13] MEDS: PANTOPRAZOLE SOD 40 MG SUSPENSION PACKET GT SCH (10:33)
[2015-09-13] MEDS: CHLORHEXIDINE GLUCONATE 0.12% 15ML CUP MM SCH ×2 (13:30→22:46)
--- NOTE | 2015-09-13 15:45 | PN ---
Progress Note, Physician History of Present Illness: PULMONARY POORLY RESPONSIVE ON VENT SUPPORT CURRENTLY ON CPAP WITH PS TOLERATION WELL. - Current Medication List Current Medications: Active Medications Acetaminophen (Tylenol Oral Solution -) 650 mg GT Q6H PRN PRN Reason: FEVER Amlodipine Besylate (Norvasc -) 10 mg GT DAILY [facility] Last Admin: 09/13/15 10:31 Dose: 10 mg Chlorhexidine Gluconate (Hibiclens For Decolonization -) 1 applic TP HS [facility] Last Admin: 09/12/15 21:28 Dose: Not Given Chlorhexidine Gluconate (Peridex -) 15 ml MM BID [facility] Last Admin: 09/13/15 13:30 Dose: 15 ml Collagenase (Santyl -) 1 applic TP DAILY [facility] Last Admin: 09/13/15 10:31 Dose: 1 applic Ibuprofen (Motrin Oral Suspension -) 200 mg PO Q6H PRN PRN Reason: FEVER Insulin Aspart (Novolog Vial) 5 units SQ Q6HPO [facility] Last Admin: 09/13/15 13:36 Dose: 5 units Insulin Aspart (Novolog Vial) 0 units SQ Q6HPO [facility] PRN Reason: Protocol Last Admin: 09/13/15 13:40 Dose: Not Given Insulin Detemir (Levemir Vial) 28 units SQ HS [facility] Last Admin: 09/12/15 21:26 Dose: 28 units Lisinopril (Prinivil -) 40 mg GT DAILY [facility] Last Admin: 09/13/15 10:31 Dose: 40 mg Metoprolol Tartrate (Lopressor -) 125 mg GT BID [facility] Last Admin: 09/13/15 10:30 Dose: 125 mg Metoprolol Tartrate (Lopressor Injection -) 5 mg IVPB Q6H PRN PRN Reason: HYPERTENSION Multivitamins (Thera-Plus -) 5 ml GT DAILY [facility] Last Admin: 09/13/15 10:33 Dose: 5 ml Ondansetron HCl (Zofran Injection -) 4 mg IVPB Q6H PRN PRN Reason: NAUSEA Pantoprazole Sodium (Protonix Packets For Oral Suspension -) 40 mg GT DAILY [facility] Last Admin: 09/13/15 10:33 Dose: 40 mg Silver Sulfadiazine (Silvadene -) 1 applic TP DAILY [facility] Last Admin: 09/13/15 10:33 Dose: 1 applic - Objective Vital Signs: Vital Signs Temperature 98.7 F 09/13/15 09:00 Pulse Rate 91 H 09/13/15 09:00 Respiratory Rate 21 09/13/15 14:33 Blood Pressure 129/63 09/13/15 09:00 O2 Sat by Pulse Oximetry (%) 98 09/13/15 10:00 Constitutional: Yes: Thin, Other (POORLY RESPONSIVE) Eyes: Yes: WNL HENT: Yes: WNL Neck: Yes: Supple (TRACH) Cardiovascular: Yes: Pulse Irregular, S1, S2 Respiratory: Yes: Diminished, Rhonchi (SCATTERED RHONCHI) Gastrointestinal: Yes: Normal Bowel Sounds, Soft Extremities: Yes: WNL Edema: No Labs: CBC, BMP 09/13/15 07:00 09/12/15 06:00 INR, PTT INR 1.32 (0.86-1.14) H 09/03/15 19:20 Problem List - Problems (1) Anoxic brain damage Code: G93.1 (2) Lower GI bleed Code: K92.2 (3) 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 Qualifier Code: (J96.20) Acute and chronic respiratory failure, unspecified whether with hypoxia or hypercapnia (5) Fever Code: R50.9 (6) CVA (cerebral vascular accident) Code: I63.9 Qualifiers: CVA mechanism: unspecified Qualifier Code: (I63.9) Cerebral infarction , unspecified (7) Acute blood loss anemia Code: D62 (8) 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
[2015-09-13] MEDS: INSULIN DETEMIR 100 UNITS/ML MDV SQ SCH (22:57)
[2015-09-13] MEDS: CHLORHEXIDINE GLUCONATE 4% CLEANSER FOR DECOLONIZATION TP SCH (23:01)
[2015-09-14] MEDS: INSULIN (NOVOLOG) ASPART 100 UNITS/ML 10ML VIAL SQ SCH ×8 (06:20→23:31)
[2015-09-14] MEDS: LISINOPRIL 20 MG TABLET (FP) GT SCH (10:31)
[2015-09-14] MEDS: amLODIPine BESYLATE 10 MG TABLET (FP) GT SCH (10:31)
[2015-09-14] MEDS: METOPROLOL TARTRATE 50 MG TABLET (FP) GT SCH ×2 (10:31→22:04)
[2015-09-14] MEDS: PANTOPRAZOLE SOD 40 MG SUSPENSION PACKET GT SCH (10:32)
[2015-09-14] MEDS: CHLORHEXIDINE GLUCONATE 0.12% 15ML CUP MM SCH ×2 (10:32→22:04)
[2015-09-14] MEDS: COLLAGENASE CLOSTRIDIUM HIST. 30 GRAMS TUBE TP SCH (10:33)
[2015-09-14] MEDS: SILVER SULFADIAZINE 1% TOP CREAM 50 GM JAR TP SCH (10:33)
[2015-09-14] MEDS: MULTIVITAMINS THERAPEUTIC GT SCH (10:33)
--- NOTE | 2015-09-14 13:26 | PN ---
Progress Note (short form) - Note Progress Note: Subjective: pt seen and examined at bedside, no acute events noted overnight. Objective: Last Vital Signs Temp Pulse Resp BP Pulse Ox 99.4 F 110 H 21 170/99 97 09/14/15 09:00 09/14/15 09:00 09/14/15 10:30 09/14/15 09:00 09/14/15 10:00 PE: Neuro: spontaneous eye movement Pulm: Course BS, trach placed Cv: s1 s2 rrr no mrg Abd: peg tube CDI, soft, +Bs Ext: LUE edema +2, no lower ext edema, warm to touch Vent Settings: CPAP/10/500/30/10 CBCD WBC 9.8 K/mm3 (4.0-10.0) 09/13/15 07:00 RBC 2.64 M/mm3 (4.00-5.60) L 09/13/15 07:00 Hgb 7.7 GM/dL (11.7-16.9) L 09/13/15 07:00 Hct 23.0 % (35.4-49) L 09/13/15 07:00 MCV 86.8 fl (80-96) 09/13/15 07:00 MCHC 33.5 g/dl (32.0-35.9) 09/13/15 07:00 RDW 15.3 % (11.9-15.9) 09/13/15 07:00 Plt Count 282 K/MM3 (134-434) 09/13/15 07:00 MPV 6.8 fl (7.5-11.1) L 09/13/15 07:00 CMP Sodium 137 mmol/L (136-145) 09/12/15 06:00 Potassium 3.7 mmol/L (3.5-5.1) 09/12/15 06:00 Chloride 97 mmol/L (98-107) L 09/12/15 06:00 Carbon Dioxide 31 mmol/L (21-32) 09/12/15 06:00 Anion Gap 9 (8-16) 09/12/15 06:00 BUN 12 mg/dL (7-18) D 09/12/15 06:00 Creatinine 0.5 mg/dL (0.6-1.3) L D 09/12/15 06:00 Creat Clearance w eGFR > 60 (>60) 09/08/15 05:10 Calcium 9.1 mg/dL (8.5-10.1) 09/12/15 06:00 Total Bilirubin 0.2 mg/dL (0.2-1.0) 09/08/15 05:10 AST 10 U/L (15-37) L D 09/08/15 05:10 ALT 15 U/L (12-78) 09/08/15 05:10 Alkaline Phosphatase 95 U/L (45-117) 09/08/15 05:10 Total Protein 6.7 g/dl (6.4-8.2) 09/08/15 05:10 Albumin 2.6 g/dl (3.4-5.0) L 09/08/15 05:10 Current Medications Generic Name Dose Route Start Last Admin Trade Name Freq PRN Reason Stop Dose Admin Acetaminophen 650 mg 09/09/15 09:29 Tylenol Oral Solution - GT Q6H PRN FEVER Amlodipine Besylate 10 mg 09/09/15 10:00 09/14/15 10:31 Norvasc - GT 10 mg DAILY [facility] Administration Chlorhexidine Gluconate 1 applic 09/09/15 22:00 09/13/15 23:01 Hibiclens For Decolonization - TP Not Given HS [facility] Chlorhexidine Gluconate 15 ml 09/09/15 10:00 09/14/15 10:32 Peridex - MM 15 ml BID [facility] Administration Collagenase 1 applic 09/09/15 10:00 09/14/15 10:33 Santyl - TP 1 applic DAILY [facility] Administration Ibuprofen 200 mg 09/09/15 09:29 Motrin Oral Suspension - PO Q6H PRN FEVER Insulin Aspart 5 units 09/09/15 12:00 09/14/15 14:09 Novolog Vial SQ 5 units Q6HPO [facility] Administration Insulin Aspart 0 units 09/09/15 12:00 09/14/15 14:10 Novolog Vial SQ 2 units Q6HPO [facility] Administration Protocol Insulin Detemir 28 units 09/09/15 22:00 09/13/15 22:57 Levemir Vial SQ 28 units HS [facility] Administration Lisinopril 40 mg 09/09/15 10:00 09/14/15 10:31 Prinivil - GT 40 mg DAILY [facility] Administration Metoprolol Tartrate 125 mg 09/09/15 10:00 09/14/15 10:31 Lopressor - GT 125 mg BID [facility] Administration Metoprolol Tartrate 5 mg 09/09/15 09:29 Lopressor Injection - IVPB Q6H PRN HYPERTENSION Multivitamins 5 ml 09/09/15 10:00 09/14/15 10:33 Thera-Plus - GT 5 ml DAILY [facility] Administration Ondansetron HCl 4 mg 09/09/15 09:29 Zofran Injection - IVPB Q6H PRN NAUSEA Pantoprazole Sodium 40 mg 09/09/15 10:00 09/14/15 10:32 Protonix Packets For Oral Suspension - GT 40 mg DAILY [facility] Administration Silver Sulfadiazine 1 applic 09/09/15 10:00 09/14/15 10:33 Silvadene - TP 1 applic DAILY [facility] Administration Assessment/Plan: 75 year old male with PMHx of HTN, IDDM, inguinal hernia who presented to the ED with diverticular bleed s/p R hemicolectomy with hospital course complicated by 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 Anoxic brain injury s/p brainstem CVA - Currently not following commands, eyes open to tactile stimuli. Moving all extremities R>L Respiratory failure secondary to anoxic brain injury - s/p trach, vent dependent - Cont CPAP trials - Daily pressure support trails per RT Iliac artery bleed s/p embolization 09/03 - Hgb minor decrease, monitor for bleeding HTN - Continue lisinopril, metoprolol, amlodipine Multiple pressure ulcers - Stage III sacrum healing, Stage II left ear healing, per wound care assessment - Collagenase to Stage III slough area, silvadene to Stage II left ear - turn and position q2h S/p diverticular bleed with right hemicolectomy - S/p PEG with continuous tube feeds Hypernatremia - Resolved; continue free water via feeding tube pump @ 45cc's per hour IDDM - Levemir 28units HS - ISS BGM ACHS FEN: -FLUIDS: 45cc free water hourly via tube feeds pump -ELECTROLYTES: replete as indicated -NUTRITION: Glucerna tube feeds DVT Prophylaxis: SCDs, lovenox DISPO: Placement issue due to lack of any insurance. Advised case management is working on this. Needs transfer to long-term care facility. DNR.
--- NOTE | 2015-09-14 14:17 | PN ---
Progress Note (short form) - Note Progress Note: Progress Note PULM/CCM Patient Name: CRUZ LEE Date of : 1940 Patient Status: Inpatient Attending Provider: Marcella Mcdonald No acute events overnight. Intermittently tolerating CPAP wean. Intake & Output 09/11/15 09/12/15 09/13/15 09/14/15 23:59 23:59 23:59 23:59 Intake Total 1200 2300 1300 Output Total 600 Balance 1200 2300 1300 -600 Last Vital Signs Temp Pulse Resp BP Pulse Ox 99.4 F 110 H 21 170/99 97 09/14/15 09:00 09/14/15 09:00 09/14/15 10:30 09/14/15 09:00 09/14/15 10:00 Active Medications Acetaminophen (Tylenol Oral Solution -) 650 mg GT Q6H PRN PRN Reason: FEVER Amlodipine Besylate (Norvasc -) 10 mg GT DAILY [facility] Last Admin: 09/14/15 10:31 Dose: 10 mg Chlorhexidine Gluconate (Hibiclens For Decolonization -) 1 applic TP HS [facility] Last Admin: 09/13/15 23:01 Dose: Not Given Chlorhexidine Gluconate (Peridex -) 15 ml MM BID [facility] Last Admin: 09/14/15 10:32 Dose: 15 ml Collagenase (Santyl -) 1 applic TP DAILY [facility] Last Admin: 09/14/15 10:33 Dose: 1 applic Ibuprofen (Motrin Oral Suspension -) 200 mg PO Q6H PRN PRN Reason: FEVER Insulin Aspart (Novolog Vial) 5 units SQ Q6HPO [facility] Last Admin: 09/14/15 14:09 Dose: 5 units Insulin Aspart (Novolog Vial) 0 units SQ Q6HPO [facility] PRN Reason: Protocol Last Admin: 09/14/15 14:10 Dose: 2 units Insulin Detemir (Levemir Vial) 28 units SQ HS [facility] Last Admin: 09/13/15 22:57 Dose: 28 units Lisinopril (Prinivil -) 40 mg GT DAILY [facility] Last Admin: 09/14/15 10:31 Dose: 40 mg Metoprolol Tartrate (Lopressor -) 125 mg GT BID [facility] Last Admin: 09/14/15 10:31 Dose: 125 mg Metoprolol Tartrate (Lopressor Injection -) 5 mg IVPB Q6H PRN PRN Reason: HYPERTENSION Multivitamins (Thera-Plus -) 5 ml GT DAILY [facility] Last Admin: 09/14/15 10:33 Dose: 5 ml Ondansetron HCl (Zofran Injection -) 4 mg IVPB Q6H PRN PRN Reason: NAUSEA Pantoprazole Sodium (Protonix Packets For Oral Suspension -) 40 mg GT DAILY [facility] Last Admin: 09/14/15 10:32 Dose: 40 mg Silver Sulfadiazine (Silvadene -) 1 applic TP DAILY [facility] Last Admin: 09/14/15 10:33 Dose: 1 applic Gen: Trached, NAD Heart: S1S2 Lung: decreased breath sounds at the bases Abd: soft, (+) BS Groin: no active bleeding Ext: (+) edema Laboratory Results - last 24 hr 09/13/15 09/13/15 09/14/15 17:17 22:54 06:19 POC Glucometer 124 141 126 IMP: Illiac bleed s/p IR procedure with apparent hemostasis achieved Acute Brainstem CVA S/P Right Hemicoletomy due to Acute Lower Diverticular GI Bleed Acute Blood Loss Anemia Acute Respiratory Failure Pneumonia likely aspiration HTN DM CKD C diff Ag (+) PLAN: - Wean as tolerated - DVT/GI prophylaxis - D/C planning Problem List - Problems (1) Anoxic brain damage Code: G93.1 (2) Fever Code: R50.9 (3) 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 Plt Count MPV POC Glucometer 121.87237 219.74236 239.79235 09/09/15 09/09/15 05:10 06:24 WBC 11.1 H RBC 2.77 L Hgb 7.9 L Hct 24.5 L MCV 88.1 MCHC 32.2 RDW 15.6 Plt Count 330 MPV 7.5 POC Glucometer [phone] IMP: Illiac bleed s/p IR procedure with apparent hemostasis achieved Acute Brainstem CVA S/P Right Hemicoletomy due to Acute Lower Diverticular GI Bleed Acute Blood Loss Anemia Acute Respiratory Failure Pneumonia likely aspiration HTN DM CKD C diff Ag (+) PLAN: - Follow CBC - Enteral feeds as tolerated - DVT/GI prophylaxis - Wean vent as mental status allows - Vent floor Problem List - Problems (1) Anoxic brain damage Code: G93.1 (2) Fever Code: R50.9 (3) 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
[2015-09-14] MEDS: INSULIN DETEMIR 100 UNITS/ML MDV SQ SCH (22:04)
[2015-09-14] MEDS: CHLORHEXIDINE GLUCONATE 4% CLEANSER FOR DECOLONIZATION TP SCH (22:05)
[2015-09-15] MEDS: INSULIN (NOVOLOG) ASPART 100 UNITS/ML 10ML VIAL SQ SCH ×5 (06:34→17:51)
[2015-09-15] MEDS: METOPROLOL TARTRATE 50 MG TABLET (FP) GT SCH ×2 (10:23→22:02)
[2015-09-15] MEDS: amLODIPine BESYLATE 10 MG TABLET (FP) GT SCH (10:23)
[2015-09-15] MEDS: PANTOPRAZOLE SOD 40 MG SUSPENSION PACKET GT SCH (10:23)
[2015-09-15] MEDS: LISINOPRIL 20 MG TABLET (FP) GT SCH (10:23)
[2015-09-15] MEDS: CHLORHEXIDINE GLUCONATE 0.12% 15ML CUP MM SCH ×2 (10:23→22:03)
[2015-09-15] MEDS: MULTIVITAMINS THERAPEUTIC GT SCH (10:24)
--- NOTE | 2015-09-15 11:54 | PN ---
Progress Note (short form) - Note Progress Note: Wound Assessment H Reason for visit: Wound Assessment Request for consultation: by [facility] Interdisciplinary Wound Care Team Initial Encounter: No Previous Encounter: Yes Wounds - Wound Wound #1 Type of wound: Yes: Pressure ulcer Stage: III Location/laterality: sacrum across the midline Wound size: 9cmL x 11cm W x 0.5cmD Thickness: Partial Undermining: No Tunneling: No Drainage/exudate: yes, sanguinous Wound bed tissue: Slough, erythematous Wound edges color: Erythematous Wound edges raised: yes Wound edges rolled: yes, partially Wound edges contracted: No Pain: No Surrounding tissue to 4cm: Yes: erythematous Wound #2 Type of wound: Yes: Pressure ulcer Stage: III Location/laterality: left ear Wound size: 2.0cmL x 1.0cmW x 0.1cmD Thickness: Partial Undermining: No Tunneling: No Drainage/exudate: Yes, serosanguinous Wound bed tissue: Yes: Erythematous Wound edges color: Normally pigmented Wound edges raised: No Wound edges rolled: No Wound edges contracted: No Pain: No Surrounding tissue to 4cm: Yes: Healthy Wound #3 Pressure ulcer, healed Stage II Assessment/Plan Wound #1 Diagnosis: Pressure ulcer Wound specific intervention: Collagenase to slough area Allevyn dressing Wound #2 Diagnosis: Pressure ulcer Wound specific intervention: Silvadene Wound 3 Diagnosis: pressure ulcer Wound specific intervention: none Impediments to healing: Limited mobility, Unable to self-position in bed, Hypoalbunemia, Nutritional deficiencies, Incontinence of urine, Incontinence of bowel Nutrition/Dietary supplements/vitamins: change to Jevity 1.5 at goal of 50, continue Prostat BID No recommendations; added Prostat BID today Support Surface: Accucair Overlay HOB elevation: 30 degrees Off-loading: Turning/repositioning q2h, Elevate heels off bed with pillows Incontinence management: Avoid diapers; if must be used, do not secure around patient
[2015-09-15] MEDS: SILVER SULFADIAZINE 1% TOP CREAM 50 GM JAR TP SCH (12:17)
[2015-09-15] MEDS: COLLAGENASE CLOSTRIDIUM HIST. 30 GRAMS TUBE TP SCH (12:17)
--- NOTE | 2015-09-15 13:16 | PN ---
Progress Note (short form) - Note Progress Note: PULMONARY CHART REVIEWED PATIENT EXAMINED VENT SETTINGS NOTED/ NAD on CPAP Will attempt trach collar Intermittently opening eyes to command/moving right side. TEMP CURVE PROBLEMATIC CLINICAL CONDITION UNCHANGED A/P Respiratory Failure s/p Tracheostomy Acute CVA/Anoxic Brain Injury S/P Acute Lower Diverticular GI Bleed Acute Blood Loss Anemia s/p Pneumonia HTN DM CKD + C Diff Ag Fever - continue vent support/with weaning as tolerated - enteral feeds - DVT/GI prophylaxis - Prognosis poor - vent snf placement Demario BANUELOS MD
--- NOTE | 2015-09-15 14:20 | PN ---
Progress Note (short form) - Note Progress Note: Subjective: pt seen and examined at bedside, no acute events noted overnight. Objective: Last Vital Signs Temp Pulse Resp BP Pulse Ox 99.3 F 86 18 148/79 100 09/15/15 06:00 09/15/15 13:13 09/15/15 09:50 09/15/15 06:00 09/15/15 13:13 PE: Neuro: spontaneous eye movement Pulm: Course BS, trach placed Cv: s1 s2 rrr no mrg Abd: peg tube CDI, soft, +Bs Ext: LUE edema +2, no lower ext edema, warm to touch Vent Settings: CPAP/10/500/30/10 CBCD WBC 9.8 K/mm3 (4.0-10.0) 09/13/15 07:00 RBC 2.64 M/mm3 (4.00-5.60) L 09/13/15 07:00 Hgb 7.7 GM/dL (11.7-16.9) L 09/13/15 07:00 Hct 23.0 % (35.4-49) L 09/13/15 07:00 MCV 86.8 fl (80-96) 09/13/15 07:00 MCHC 33.5 g/dl (32.0-35.9) 09/13/15 07:00 RDW 15.3 % (11.9-15.9) 09/13/15 07:00 Plt Count 282 K/MM3 (134-434) 09/13/15 07:00 MPV 6.8 fl (7.5-11.1) L 09/13/15 07:00 CMP Sodium 137 mmol/L (136-145) 09/12/15 06:00 Potassium 3.7 mmol/L (3.5-5.1) 09/12/15 06:00 Chloride 97 mmol/L (98-107) L 09/12/15 06:00 Carbon Dioxide 31 mmol/L (21-32) 09/12/15 06:00 Anion Gap 9 (8-16) 09/12/15 06:00 BUN 12 mg/dL (7-18) D 09/12/15 06:00 Creatinine 0.5 mg/dL (0.6-1.3) L D 09/12/15 06:00 Creat Clearance w eGFR > 60 (>60) 09/08/15 05:10 Calcium 9.1 mg/dL (8.5-10.1) 09/12/15 06:00 Total Bilirubin 0.2 mg/dL (0.2-1.0) 09/08/15 05:10 AST 10 U/L (15-37) L D 09/08/15 05:10 ALT 15 U/L (12-78) 09/08/15 05:10 Alkaline Phosphatase 95 U/L (45-117) 09/08/15 05:10 Total Protein 6.7 g/dl (6.4-8.2) 09/08/15 05:10 Albumin 2.6 g/dl (3.4-5.0) L 09/08/15 05:10 Current Medications Generic Name Dose Route Start Last Admin Trade Name Freq PRN Reason Stop Dose Admin Acetaminophen 650 mg 09/09/15 09:29 Tylenol Oral Solution - GT Q6H PRN FEVER Amino Acids 30 ml 09/15/15 17:30 Prostat Sugar-Free Packet - PO BID@0800,1730 [facility] Amlodipine Besylate 10 mg 09/09/15 10:00 09/15/15 10:23 Norvasc - GT 10 mg DAILY [facility] Administration Chlorhexidine Gluconate 1 applic 09/09/15 22:00 09/14/15 22:05 Hibiclens For Decolonization - TP Not Given HS [facility] Chlorhexidine Gluconate 15 ml 09/09/15 10:00 09/15/15 10:23 Peridex - MM 15 ml BID [facility] Administration Collagenase 1 applic 09/09/15 10:00 09/15/15 12:17 Santyl - TP 1 applic DAILY [facility] Administration Ibuprofen 200 mg 09/09/15 09:29 Motrin Oral Suspension - PO Q6H PRN FEVER Insulin Aspart 0 units 09/09/15 12:00 09/15/15 12:18 Novolog Vial SQ Not Given Q6HPO [facility] Protocol Insulin Detemir 28 units 09/09/15 22:00 09/14/15 22:04 Levemir Vial SQ 28 units HS [facility] Administration Lisinopril 40 mg 09/09/15 10:00 09/15/15 10:23 Prinivil - GT 40 mg DAILY [facility] Administration Metoprolol Tartrate 125 mg 09/09/15 10:00 09/15/15 10:23 Lopressor - GT 125 mg BID [facility] Administration Metoprolol Tartrate 5 mg 09/09/15 09:29 Lopressor Injection - IVPB Q6H PRN HYPERTENSION Multivitamins 5 ml 09/09/15 10:00 09/15/15 10:24 Thera-Plus - GT 5 ml DAILY [facility] Administration Ondansetron HCl 4 mg 09/09/15 09:29 Zofran Injection - IVPB Q6H PRN NAUSEA Pantoprazole Sodium 40 mg 09/09/15 10:00 09/15/15 10:23 Protonix Packets For Oral Suspension - GT 40 mg DAILY [facility] Administration Silver Sulfadiazine 1 applic 09/09/15 10:00 09/15/15 12:17 Silvadene - TP 1 applic DAILY [facility] Administration Assessment/Plan: 75 year old male with PMHx of HTN, IDDM, inguinal hernia who presented to the ED with diverticular bleed s/p R hemicolectomy with hospital course complicated by 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 Anoxic brain injury s/p brainstem CVA - Currently not following commands, eyes open to tactile stimuli. Moving all extremities R>L Respiratory failure secondary to anoxic brain injury - s/p trach, vent dependent - Cont CPAP trials - Daily pressure support trails per RT Iliac artery bleed s/p embolization 09/03 - Hgb stable. repeat cbc in am. monitor for bleeding HTN - Continue lisinopril, metoprolol, amlodipine Multiple pressure ulcers - Stage III sacrum healing, Stage II left ear healing, per wound care assessment - Collagenase to Stage III slough area, silvadene to Stage II left ear - turn and position q2h S/p diverticular bleed with right hemicolectomy - S/p PEG with continuous tube feeds Hypernatremia - Resolved; continue free water via feeding tube pump @ 45cc's per hour IDDM - Levemir 28units HS - ISS BGM ACHS FEN: -FLUIDS: 45cc free water hourly via tube feeds pump -ELECTROLYTES: replete as indicated -NUTRITION: Glucerna tube feeds DVT Prophylaxis: SCDs, lovenox DISPO: Placement issue due to lack of any insurance. Advised case management is working on this. Needs transfer to long-term care facility. DNR.
[2015-09-15] MEDS: AMINO ACIDS/PROTEIN HYDROLYS SUGAR-FREE 30 ML PACKET PO SCH (17:49)
[2015-09-15] MEDS: INSULIN DETEMIR 100 UNITS/ML MDV SQ SCH (22:00)
[2015-09-15] MEDS: CHLORHEXIDINE GLUCONATE 4% CLEANSER FOR DECOLONIZATION TP SCH (22:01)
[2015-09-16] MEDS: INSULIN (NOVOLOG) ASPART 100 UNITS/ML 10ML VIAL SQ SCH ×5 (00:50→23:03)
[2015-09-16 07:44] LABS: MCH 28.2 pg (25.7-33.7); MCHC 32.7 g/dl (32.0-35.9); MEAN CELL VOLUME 86.2 fl (80-96); MEAN PLT VOLUME 6.7 fl (7.5-11.1); RDW 15.4 % (11.9-15.9); WHITE BLOOD COUNT 11.1 K/mm3 (4.0-10.0)
[2015-09-16 08:20] LABS: CALCIUM 9.1 mg/dL (8.5-10.1); CREATININE 0.5 mg/dL (0.6-1.3)
[2015-09-16 09:36] LABS: PLATELET COMMENT2 NO CLOTTING DETECTED; PLATELET COUNT 279 K/MM3 (134-434); PLATELET ESTIMATE ADEQUATE (NORMAL)
[2015-09-16] MEDS: AMINO ACIDS/PROTEIN HYDROLYS SUGAR-FREE 30 ML PACKET PO SCH ×2 (10:45→16:57)
[2015-09-16] MEDS: PANTOPRAZOLE SOD 40 MG SUSPENSION PACKET GT SCH (10:46)
[2015-09-16] MEDS: CHLORHEXIDINE GLUCONATE 0.12% 15ML CUP MM SCH ×2 (10:46→22:33)
[2015-09-16] MEDS: METOPROLOL TARTRATE 50 MG TABLET (FP) GT SCH ×2 (10:46→22:32)
[2015-09-16] MEDS: COLLAGENASE CLOSTRIDIUM HIST. 30 GRAMS TUBE TP SCH (10:47)
[2015-09-16] MEDS: amLODIPine BESYLATE 10 MG TABLET (FP) GT SCH (10:47)
[2015-09-16] MEDS: LISINOPRIL 20 MG TABLET (FP) GT SCH (10:47)
[2015-09-16] MEDS: SILVER SULFADIAZINE 1% TOP CREAM 50 GM JAR TP SCH (10:48)
[2015-09-16] MEDS: MULTIVITAMINS THERAPEUTIC GT SCH (10:48)
--- NOTE | 2015-09-16 14:01 | PN ---
Progress Note (short form) - Note Progress Note: Subjective: pt seen and examined at bedside, no acute events noted overnight. Objective: Last Vital Signs Temp Pulse Resp BP Pulse Ox 99.4 F 95 H 18 145/84 99 09/16/15 10:00 09/16/15 10:00 09/16/15 10:00 09/16/15 10:00 09/16/15 09:15 PE: Neuro: spontaneous eye movement Pulm: Course BS, trach placed Cv: s1 s2 rrr no mrg Abd: peg tube CDI, soft, +Bs Ext: LUE edema +2, no lower ext edema, warm to touch CBCD WBC 11.1 K/mm3 (4.0-10.0) H 09/16/15 07:20 RBC 2.75 M/mm3 (4.00-5.60) L 09/16/15 07:20 Hgb 7.7 GM/dL (11.7-16.9) L 09/16/15 07:20 Hct 23.7 % (35.4-49) L 09/16/15 07:20 MCV 86.2 fl (80-96) 09/16/15 07:20 MCHC 32.7 g/dl (32.0-35.9) 09/16/15 07:20 RDW 15.4 % (11.9-15.9) 09/16/15 07:20 Plt Count 279 K/MM3 (134-434) 09/16/15 07:20 MPV 6.7 fl (7.5-11.1) L 09/16/15 07:20 CMP Sodium 136 mmol/L (136-145) 09/16/15 07:20 Potassium 3.4 mmol/L (3.5-5.1) L 09/16/15 07:20 Chloride 97 mmol/L (98-107) L 09/16/15 07:20 Carbon Dioxide 32 mmol/L (21-32) 09/16/15 07:20 Anion Gap 7 (8-16) L 09/16/15 07:20 BUN 10 mg/dL (7-18) 09/16/15 07:20 Creatinine 0.5 mg/dL (0.6-1.3) L 09/16/15 07:20 Creat Clearance w eGFR > 60 (>60) 09/08/15 05:10 Calcium 9.1 mg/dL (8.5-10.1) 09/16/15 07:20 Total Bilirubin 0.2 mg/dL (0.2-1.0) 09/08/15 05:10 AST 10 U/L (15-37) L D 09/08/15 05:10 ALT 15 U/L (12-78) 09/08/15 05:10 Alkaline Phosphatase 95 U/L (45-117) 09/08/15 05:10 Total Protein 6.7 g/dl (6.4-8.2) 09/08/15 05:10 Albumin 2.6 g/dl (3.4-5.0) L 09/08/15 05:10 Current Medications Generic Name Dose Route Start Last Admin Trade Name Freq PRN Reason Stop Dose Admin Acetaminophen 650 mg 09/09/15 09:29 Tylenol Oral Solution - GT Q6H PRN FEVER Amino Acids 30 ml 09/15/15 17:30 09/16/15 10:45 Prostat Sugar-Free Packet - PO 30 ml BID@0800,1730 [facility] Administration Amlodipine Besylate 10 mg 09/09/15 10:00 09/16/15 10:47 Norvasc - GT 10 mg DAILY [facility] Administration Chlorhexidine Gluconate 1 applic 09/09/15 22:00 09/15/15 22:01 Hibiclens For Decolonization - TP 1 applic HS [facility] Administration Chlorhexidine Gluconate 15 ml 09/09/15 10:00 09/16/15 10:46 Peridex - MM 15 ml BID [facility] Administration Collagenase 1 applic 09/09/15 10:00 09/16/15 10:47 Santyl - TP 1 applic DAILY [facility] Administration Ibuprofen 200 mg 09/09/15 09:29 Motrin Oral Suspension - PO Q6H PRN FEVER Insulin Aspart 0 units 09/09/15 12:00 09/16/15 11:08 Novolog Vial SQ Not Given Q6HPO [facility] Protocol Insulin Detemir 28 units 09/09/15 22:00 09/15/15 22:00 Levemir Vial SQ 28 units HS [facility] Administration Lisinopril 40 mg 09/09/15 10:00 09/16/15 10:47 Prinivil - GT 40 mg DAILY [facility] Administration Metoprolol Tartrate 125 mg 09/09/15 10:00 09/16/15 10:46 Lopressor - GT 125 mg BID [facility] Administration Metoprolol Tartrate 5 mg 09/09/15 09:29 Lopressor Injection - IVPB Q6H PRN HYPERTENSION Multivitamins 5 ml 09/09/15 10:00 09/16/15 10:48 Thera-Plus - GT 5 ml DAILY [facility] Administration Ondansetron HCl 4 mg 09/09/15 09:29 Zofran Injection - IVPB Q6H PRN NAUSEA Pantoprazole Sodium 40 mg 09/09/15 10:00 09/16/15 10:46 Protonix Packets For Oral Suspension - GT 40 mg DAILY [facility] Administration Silver Sulfadiazine 1 applic 09/09/15 10:00 09/16/15 10:48 Silvadene - TP 1 applic DAILY [facility] Administration Assessment/Plan: 75 year old male with PMHx of HTN, IDDM, inguinal hernia who presented to the ED with diverticular bleed s/p R hemicolectomy with hospital course complicated by 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 Anoxic brain injury s/p brainstem CVA - Currently not following commands, eyes open to tactile stimuli. Moving all extremities R>L Respiratory failure secondary to anoxic brain injury - s/p trach, vent dependent - Cont CPAP trials - Daily pressure support trails per RT Iliac artery bleed s/p embolization 09/03 - Hgb stable. HTN - Continue lisinopril, metoprolol, amlodipine Multiple pressure ulcers - Stage III sacrum healing, Stage II left ear healing, per wound care assessment - Collagenase to Stage III slough area, silvadene to Stage II left ear - turn and position q2h S/p diverticular bleed with right hemicolectomy - S/p PEG with continuous tube feeds Hypernatremia - Resolved; continue free water via feeding tube pump @ 45cc's per hour IDDM - Levemir 28units HS - ISS BGM ACHS FEN: -FLUIDS: 45cc free water hourly via tube feeds pump -ELECTROLYTES: replete as indicated -NUTRITION: Glucerna tube feeds DVT Prophylaxis: SCDs, lovenox DISPO: Placement issue due to lack of any insurance. Needs transfer to long-term care facility. DNR.
[2015-09-16] MEDS: CHLORHEXIDINE GLUCONATE 4% CLEANSER FOR DECOLONIZATION TP SCH (22:32)
[2015-09-16] MEDS: INSULIN DETEMIR 100 UNITS/ML MDV SQ SCH (23:02)
[2015-09-17] MEDS: INSULIN (NOVOLOG) ASPART 100 UNITS/ML 10ML VIAL SQ SCH ×4 (05:34→23:00)
[2015-09-17] MEDS: amLODIPine BESYLATE 10 MG TABLET (FP) GT SCH (11:06)
[2015-09-17] MEDS: LISINOPRIL 20 MG TABLET (FP) GT SCH (11:06)
[2015-09-17] MEDS: METOPROLOL TARTRATE 100 MG, METOPROLOL TARTRATE 25 MG GT SCH ×2 (11:07→22:51)
[2015-09-17] MEDS: AMINO ACIDS/PROTEIN HYDROLYS SUGAR-FREE 30 ML PACKET PO SCH ×2 (11:07→17:29)
[2015-09-17] MEDS: PANTOPRAZOLE SOD 40 MG SUSPENSION PACKET GT SCH (11:07)
[2015-09-17] MEDS: CHLORHEXIDINE GLUCONATE 0.12% 15ML CUP MM SCH (11:14)
[2015-09-17] MEDS: SILVER SULFADIAZINE 1% TOP CREAM 50 GM JAR TP SCH (11:15)
[2015-09-17] MEDS: MULTIVITAMINS THERAPEUTIC GT SCH (11:16)
--- NOTE | 2015-09-17 12:24 | PN ---
Progress Note (short form) - Note Progress Note: Subjective: pt seen and examined at bedside, he appears comfortable he is on Trach collar 35%. Objective: Last Vital Signs Temp Pulse Resp BP Pulse Ox 98.9 F 101 H 19 151/88 97 09/17/15 10:00 09/17/15 10:00 09/17/15 10:00 09/17/15 10:00 09/17/15 09:44 PE: Neuro: non responsive, non verbal Pulm: Course BS, trach placed Cv: s1 s2 rrr no mrg Abd: peg tube CDI, soft, +Bs Ext: LUE edema +2, no lower ext edema, warm to touch Current Medications Generic Name Dose Route Start Last Admin Trade Name Freq PRN Reason Stop Dose Admin Acetaminophen 650 mg 09/09/15 09:29 Tylenol Oral Solution - GT Q6H PRN FEVER Amino Acids 30 ml 09/15/15 17:30 09/17/15 11:07 Prostat Sugar-Free Packet - PO 30 ml BID@0800,1730 [facility] Administration Amlodipine Besylate 10 mg 09/09/15 10:00 09/17/15 11:06 Norvasc - GT 10 mg DAILY [facility] Administration Collagenase 1 applic 09/09/15 10:00 09/16/15 10:47 Santyl - TP 1 applic DAILY [facility] Administration Ibuprofen 200 mg 09/09/15 09:29 Motrin Oral Suspension - PO Q6H PRN FEVER Insulin Aspart 0 units 09/09/15 12:00 09/17/15 11:35 Novolog Vial SQ 2 units Q6HPO [facility] Administration Protocol Insulin Detemir 28 units 09/09/15 22:00 09/16/15 23:02 Levemir Vial SQ Not Given HS [facility] Lisinopril 40 mg 09/09/15 10:00 09/17/15 11:06 Prinivil - GT 40 mg DAILY [facility] Administration Metoprolol Tartrate 5 mg 09/09/15 09:29 Lopressor Injection - IVPB Q6H PRN HYPERTENSION Metoprolol Tartrate 100 mg/ 125 mg 09/17/15 10:00 09/17/15 11:07 Metoprolol Tartrate 25 mg GT 125 mg BID [facility] Administration Multivitamins 5 ml 09/09/15 10:00 09/17/15 11:16 Thera-Plus - GT 5 ml DAILY [facility] Administration Ondansetron HCl 4 mg 09/09/15 09:29 Zofran Injection - IVPB Q6H PRN NAUSEA Pantoprazole Sodium 40 mg 09/09/15 10:00 09/17/15 11:07 Protonix Packets For Oral Suspension - GT 40 mg DAILY [facility] Administration Silver Sulfadiazine 1 applic 09/09/15 10:00 09/17/15 11:15 Silvadene - TP 1 applic DAILY [facility] Administration Assessment: 75 year old male with PMHx of HTN, IDDM, inguinal hernia who presented to the ED with diverticular bleed s/p R hemicolectomy with hospital course complicated by 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 Plan: 1.Anoxic brain injury s/p brainstem CVAs - Mental status unchanged 2. Respiratory failure secondary to anoxic brain injury - On trach collar since 09/14 3. Iliac artery bleed s/p embolization 09/03 - Will trend hgb, stable 4. HTN - Continue lisinopril, metoprolol, amlodipine 5. Multiple pressure ulcers - Stage III sacrum healing, Stage II left ear healing, per wound care assessment - Collagenase to Stage III slough area, silvadene to Stage II left ear - turn and position q2h 6. S/p diverticular bleed with right hemicolectomy - S/p PEG with continuous tube feeds 9. Hypernatremia - Resolved; continue free water via feeding tube pump @ 45cc's per hour 10. IDDM - Levemir 28units HS - ISS BGM ACHS FEN: -FLUIDS: 45cc free water hourly via tube feeds pump -ELECTROLYTES: replete as indicated -NUTRITION: Glucerna tube feeds DVT Prophylaxis: SCDs, lovenox DISPO: Placement issue due to lack of any insurance. Advised case management is working on this. Needs transfer to long-term care facility. DNR.
[2015-09-17] MEDS: COLLAGENASE CLOSTRIDIUM HIST. 30 GRAMS TUBE TP SCH (17:29)
[2015-09-17] MEDS: INSULIN DETEMIR 100 UNITS/ML MDV SQ SCH (22:59)
[2015-09-18] MEDS: INSULIN (NOVOLOG) ASPART 100 UNITS/ML 10ML VIAL SQ SCH ×3 (06:15→18:20)
[2015-09-18 08:38] LABS: BASOPHIL 1.3 % (0-2.0); MCH 28.1 pg (25.7-33.7); MCHC 32.5 g/dl (32.0-35.9); MEAN CELL VOLUME 86.3 fl (80-96); NEUTROPHILS 74.2 % (42.8-82.8); PLATELET COUNT 297 K/MM3 (134-434); RDW 15.4 % (11.9-15.9); WHITE BLOOD COUNT 12.2 K/mm3 (4.0-10.0)
[2015-09-18] MEDS: AMINO ACIDS/PROTEIN HYDROLYS SUGAR-FREE 30 ML PACKET PO SCH ×2 (08:48→18:20)
[2015-09-18 09:05] LABS: CALCIUM 9.7 mg/dL (8.5-10.1); CREATININE 0.5 mg/dL (0.7-1.3)
--- NOTE | 2015-09-18 09:45 | PN ---
Progress Note (short form) - Note Progress Note: Subjective: pt seen and examined at bedside, comfortable, on Trach collar 40% Objective: Last Vital Signs Temp Pulse Resp BP Pulse Ox 99.3 F 96 H 22 153/96 98 09/18/15 07:59 09/18/15 07:59 09/18/15 06:00 09/18/15 07:59 09/17/15 21:00 PE: Neuro: spontaneous eye movement, non verbal Pulm: Course BS, trach placed Cv: s1 s2 rrr no mrg Abd: peg tube CDI, soft, +Bs Ext: Spontaneous movement of RUE, LUE edema +2, no lower ext edema, warm to touch CBCD WBC 12.2 K/mm3 (4.0-10.0) H 09/18/15 08:10 RBC 3.09 M/mm3 (4.00-5.60) L 09/18/15 08:10 Hgb 8.7 GM/dL (11.7-16.9) L D 09/18/15 08:10 Hct 26.7 % (35.4-49) L 09/18/15 08:10 MCV 86.3 fl (80-96) 09/18/15 08:10 MCHC 32.5 g/dl (32.0-35.9) 09/18/15 08:10 RDW 15.4 % (11.9-15.9) 09/18/15 08:10 Plt Count 297 K/MM3 (134-434) 09/18/15 08:10 MPV 7.0 fl (7.5-11.1) L 09/18/15 08:10 CMP Sodium 140 mmol/L (136-145) 09/18/15 08:10 Potassium 3.7 mmol/L (3.5-5.1) 09/18/15 08:10 Chloride 98 mmol/L (98-107) 09/18/15 08:10 Carbon Dioxide 34 mmol/L (21-32) H 09/18/15 08:10 Anion Gap 8 (8-16) 09/18/15 08:10 BUN 14 mg/dL (7-18) D 09/18/15 08:10 Creatinine 0.5 mg/dL (0.7-1.3) L 09/18/15 08:10 Creat Clearance w eGFR > 60 (>60) 09/08/15 05:10 Calcium 9.7 mg/dL (8.5-10.1) 09/18/15 08:10 Total Bilirubin 0.2 mg/dL (0.2-1.0) 09/08/15 05:10 AST 10 U/L (15-37) L D 09/08/15 05:10 ALT 15 U/L (12-78) 09/08/15 05:10 Alkaline Phosphatase 95 U/L (45-117) 09/08/15 05:10 Total Protein 6.7 g/dl (6.4-8.2) 09/08/15 05:10 Albumin 2.6 g/dl (3.4-5.0) L 09/08/15 05:10 09/18/15 08:10 Calcium 9.7 Current Medications Generic Name Dose Route Start Last Admin Trade Name Freq PRN Reason Stop Dose Admin Acetaminophen 650 mg 09/09/15 09:29 Tylenol Oral Solution - GT Q6H PRN FEVER Albuterol Sulfate 1 amp 09/18/15 09:30 Ventolin 0.083% Nebulizer Soln - NEB Q4H PRN SHORT OF BREATH/WHEEZING Amino Acids 30 ml 09/15/15 17:30 09/18/15 08:48 Prostat Sugar-Free Packet - PO 30 ml BID@0800,1730 [facility] Administration Amlodipine Besylate 10 mg 09/09/15 10:00 09/17/15 11:06 Norvasc - GT 10 mg DAILY [facility] Administration Collagenase 1 applic 09/09/15 10:00 09/17/15 17:29 Santyl - TP 1 applic DAILY [facility] Administration Ibuprofen 200 mg 09/09/15 09:29 Motrin Oral Suspension - PO Q6H PRN FEVER Insulin Aspart 0 units 09/09/15 12:00 09/18/15 06:15 Novolog Vial SQ Not Given Q6HPO [facility] Protocol Insulin Detemir 28 units 09/09/15 22:00 09/17/15 22:59 Levemir Vial SQ 28 units HS [facility] Administration Lisinopril 40 mg 09/09/15 10:00 09/17/15 11:06 Prinivil - GT 40 mg DAILY [facility] Administration Metoprolol Tartrate 5 mg 09/09/15 09:29 Lopressor Injection - IVPB Q6H PRN HYPERTENSION Metoprolol Tartrate 100 mg/ 125 mg 09/17/15 10:00 09/17/15 22:51 Metoprolol Tartrate 25 mg GT 125 mg BID [facility] Administration Multivitamins 5 ml 09/09/15 10:00 09/17/15 11:16 Thera-Plus - GT 5 ml DAILY [facility] Administration Ondansetron HCl 4 mg 09/09/15 09:29 Zofran Injection - IVPB Q6H PRN NAUSEA Pantoprazole Sodium 40 mg 09/09/15 10:00 09/17/15 11:07 Protonix Packets For Oral Suspension - GT 40 mg DAILY [facility] Administration Silver Sulfadiazine 1 applic 09/09/15 10:00 09/17/15 11:15 Silvadene - TP 1 applic DAILY [facility] Administration Assessment: 75 year old male with PMHx of HTN, IDDM, inguinal hernia who presented to the ED with diverticular bleed s/p R hemicolectomy with hospital course complicated by 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 Plan: 1.Anoxic brain injury s/p brainstem CVAs - Mental status unchanged 2. Respiratory failure secondary to anoxic brain injury - On trach collar since 09/14 - Albuterol neb PRN 3. Leukocytosis - During this admission pt has has persistent leukocytosis, all culture date negative - Will monitor, likely neurogenic 4. 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 HTN - Continue lisinopril, metoprolol, amlodipine 6. Multiple pressure ulcers - Stage III sacrum healing, Stage II left ear healing, per wound care assessment - Collagenase to Stage III slough area, silvadene to Stage II left ear - turn and position q2h 7. S/p diverticular bleed with right hemicolectomy - S/p PEG with continuous tube feeds 8. Hypernatremia - Resolved; continue free water via feeding tube pump @ 45cc's per hour 9. IDDM - Levemir 28units HS - ISS BGM ACHS FEN: -FLUIDS: 45cc free water hourly via tube feeds pump -ELECTROLYTES: replete as indicated -NUTRITION: Glucerna tube feeds DVT Prophylaxis: SCDs, lovenox DISPO: Placement issue due to lack of any insurance. Advised case management is working on this. Needs transfer to long-term care facility. DNR.
[2015-09-18] MEDS: METOPROLOL TARTRATE 100 MG, METOPROLOL TARTRATE 25 MG GT SCH ×2 (10:09→21:32)
[2015-09-18] MEDS: PANTOPRAZOLE SOD 40 MG SUSPENSION PACKET GT SCH (10:09)
[2015-09-18] MEDS: LISINOPRIL 20 MG TABLET (FP) GT SCH (10:09)
[2015-09-18] MEDS: amLODIPine BESYLATE 10 MG TABLET (FP) GT SCH (10:09)
[2015-09-18] MEDS: COLLAGENASE CLOSTRIDIUM HIST. 30 GRAMS TUBE TP SCH (10:10)
[2015-09-18] MEDS: MULTIVITAMINS THERAPEUTIC GT SCH (10:10)
[2015-09-18] MEDS: SILVER SULFADIAZINE 1% TOP CREAM 50 GM JAR TP SCH (10:10)
--- NOTE | 2015-09-18 12:24 | PN ---
Progress Note (short form) - Note Progress Note: PULMONARY CHART REVIEWED PATIENT EXAMINED / stable on trach collar Intermittently opening eyes to command/moving right side. TEMP CURVE PROBLEMATIC CLINICAL CONDITION UNCHANGED A/P Respiratory Failure s/p Tracheostomy Acute CVA/Anoxic Brain Injury S/P Acute Lower Diverticular GI Bleed Acute Blood Loss Anemia s/p Pneumonia HTN DM CKD + C Diff Ag Fever - continue trach collar with vent back-up - enteral feeds - DVT/GI prophylaxis - Prognosis poor - snf placement Demario BANUELOS MD
[2015-09-18] MEDS: INSULIN DETEMIR 100 UNITS/ML MDV SQ SCH (21:32)
[2015-09-19] MEDS: INSULIN (NOVOLOG) ASPART 100 UNITS/ML 10ML VIAL SQ SCH ×4 (00:25→17:32)
[2015-09-19] MEDS: amLODIPine BESYLATE 10 MG TABLET (FP) GT SCH (10:33)
[2015-09-19] MEDS: AMINO ACIDS/PROTEIN HYDROLYS SUGAR-FREE 30 ML PACKET PO SCH ×2 (10:33→17:33)
[2015-09-19] MEDS: LISINOPRIL 20 MG TABLET (FP) GT SCH (10:33)
[2015-09-19] MEDS: METOPROLOL TARTRATE 100 MG, METOPROLOL TARTRATE 25 MG GT SCH ×2 (10:33→21:39)
[2015-09-19] MEDS: PANTOPRAZOLE SOD 40 MG SUSPENSION PACKET GT SCH (10:34)
[2015-09-19] MEDS: MULTIVITAMINS THERAPEUTIC GT SCH (10:34)
[2015-09-19] MEDS: SILVER SULFADIAZINE 1% TOP CREAM 50 GM JAR TP SCH (10:34)
[2015-09-19] MEDS: COLLAGENASE CLOSTRIDIUM HIST. 30 GRAMS TUBE TP SCH (10:34)
--- NOTE | 2015-09-19 10:59 | PN ---
Progress Note (short form) - Note Progress Note: PULMONARY CHART REVIEWED PATIENT EXAMINED / stable on trach collar Intermittently opening eyes to command/moving right side. TEMP CURVE REMAINS PROBLEMATIC CLINICAL CONDITION UNCHANGED A/P Respiratory Failure s/p Tracheostomy Acute CVA/Anoxic Brain Injury S/P Acute Lower Diverticular GI Bleed Acute Blood Loss Anemia s/p Pneumonia HTN DM CKD + C Diff Ag Fever - continue trach collar with vent back-up - enteral feeds - DVT/GI prophylaxis - Prognosis poor - snf placement Demario BANUELOS MD
--- NOTE | 2015-09-19 11:14 | PN ---
Progress Note (short form) - Note Progress Note: Subjective: pt seen and examined at bedside, comfortable, eyes open, on Trach collar 40% Objective: Last Vital Signs Temp Pulse Resp BP Pulse Ox 99.5 F 96 H 20 144/85 98 09/19/15 07:00 09/19/15 07:00 09/18/15 22:00 09/19/15 07:00 09/18/15 22:52 PE: Neuro: spontaneous eye movement, non verbal Pulm: Tach collar placed Cv: s1 s2 rrr no mrg Abd: peg tube CDI, soft, +Bs Ext: Spontaneous movement of RUE LUE edema +2, no lower ext edema, warm to touch Current Medications Generic Name Dose Route Start Last Admin Trade Name Freq PRN Reason Stop Dose Admin Acetaminophen 650 mg 09/09/15 09:29 Tylenol Oral Solution - GT Q6H PRN FEVER Albuterol Sulfate 1 amp 09/18/15 09:30 Ventolin 0.083% Nebulizer Soln - NEB Q4H PRN SHORT OF BREATH/WHEEZING Amino Acids 30 ml 09/15/15 17:30 09/19/15 10:33 Prostat Sugar-Free Packet - PO 30 ml BID@0800,1730 [facility] Administration Amlodipine Besylate 10 mg 09/09/15 10:00 09/19/15 10:33 Norvasc - GT 10 mg DAILY [facility] Administration Collagenase 1 applic 09/09/15 10:00 09/19/15 10:34 Santyl - TP 1 applic DAILY [facility] Administration Ibuprofen 200 mg 09/09/15 09:29 Motrin Oral Suspension - PO Q6H PRN FEVER Insulin Aspart 0 units 09/09/15 12:00 09/19/15 06:32 Novolog Vial SQ 2 units Q6HPO [facility] Administration Protocol Insulin Detemir 28 units 09/09/15 22:00 09/18/15 21:32 Levemir Vial SQ 28 units HS [facility] Administration Lisinopril 40 mg 09/09/15 10:00 09/19/15 10:33 Prinivil - GT 40 mg DAILY [facility] Administration Metoprolol Tartrate 5 mg 09/09/15 09:29 Lopressor Injection - IVPB Q6H PRN HYPERTENSION Metoprolol Tartrate 100 mg/ 125 mg 09/17/15 10:00 09/19/15 10:33 Metoprolol Tartrate 25 mg GT 125 mg BID [facility] Administration Multivitamins 5 ml 09/09/15 10:00 09/19/15 10:34 Thera-Plus - GT 5 ml DAILY [facility] Administration Ondansetron HCl 4 mg 09/09/15 09:29 Zofran Injection - IVPB Q6H PRN NAUSEA Pantoprazole Sodium 40 mg 09/09/15 10:00 09/19/15 10:34 Protonix Packets For Oral Suspension - GT 40 mg DAILY [facility] Administration Silver Sulfadiazine 1 applic 09/09/15 10:00 09/19/15 10:34 Silvadene - TP 1 applic DAILY [facility] Administration Assessment: 75 year old male with PMHx of HTN, IDDM, inguinal hernia who presented to the ED with diverticular bleed s/p R hemicolectomy with hospital course complicated by 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 Plan: 1.Anoxic brain injury s/p brainstem CVAs - Mental status unchanged 2. Respiratory failure secondary to anoxic brain injury - On trach collar since 09/14 - Albuterol neb PRN 3. Leukocytosis - During this admission pt has has persistent leukocytosis, all culture date negative - Elevated today, continue to monitor, likely neurogenic 4. 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 HTN - Continue lisinopril, metoprolol, amlodipine 6. Multiple pressure ulcers - Stage III sacrum healing, Stage II left ear healing, per wound care assessment - Collagenase to Stage III slough area, silvadene to Stage II left ear - turn and position q2h 7. S/p diverticular bleed with right hemicolectomy - S/p PEG with continuous tube feeds 8. Hypernatremia - Resolved; continue free water via feeding tube pump @ 45cc's per hour 9. IDDM - Levemir 28units HS - ISS BGM ACHS FEN: -FLUIDS: 45cc free water hourly via tube feeds pump -ELECTROLYTES: replete as indicated -NUTRITION: Glucerna tube feeds DVT Prophylaxis: SCDs, lovenox DISPO: Placement issue due to lack of any insurance. Advised case management is working on this. Needs transfer to long-term care facility. DNR.
[2015-09-19] MEDS: ALBUTEROL SO4 0.083% IH SOL 2.5 MG/3 ML VIAL.NEB. NEB PRN (11:52)
[2015-09-19] MEDS: INSULIN DETEMIR 100 UNITS/ML MDV SQ SCH (21:39)
[2015-09-20] MEDS: INSULIN (NOVOLOG) ASPART 100 UNITS/ML 10ML VIAL SQ SCH ×5 (00:15→23:01)
[2015-09-20] MEDS: AMINO ACIDS/PROTEIN HYDROLYS SUGAR-FREE 30 ML PACKET PO SCH ×2 (08:00→18:15)
[2015-09-20] MEDS: PANTOPRAZOLE SOD 40 MG SUSPENSION PACKET GT SCH (10:00)
[2015-09-20] MEDS: COLLAGENASE CLOSTRIDIUM HIST. 30 GRAMS TUBE TP SCH (10:00)
[2015-09-20] MEDS: SILVER SULFADIAZINE 1% TOP CREAM 50 GM JAR TP SCH (10:00)
[2015-09-20] MEDS: amLODIPine BESYLATE 10 MG TABLET (FP) GT SCH (10:00)
[2015-09-20] MEDS: MULTIVITAMINS THERAPEUTIC GT SCH (10:00)
[2015-09-20] MEDS: LISINOPRIL 20 MG TABLET (FP) GT SCH (10:00)
[2015-09-20] MEDS: METOPROLOL TARTRATE 100 MG, METOPROLOL TARTRATE 25 MG GT SCH ×2 (10:00→23:00)
--- NOTE | 2015-09-20 11:14 | PN ---
Progress Note (short form) - Note Progress Note: PULMONARY No fevers overnight. Tolerating trach collar since yesterday. Last Vital Signs Temp Pulse Resp BP Pulse Ox 98.2 F 95 H 20 146/76 98 09/20/15 09:48 09/20/15 09:48 09/20/15 09:48 09/20/15 09:48 09/20/15 06:10 Gen: eyes open, breathing nonlabored Heart: RRR Lung: decreased breath sounds at the bases Abd: soft, nontender Ext: no edema CBC, BMP 09/18/15 08:10 09/18/15 08:10 Active Medications Acetaminophen (Tylenol Oral Solution -) 650 mg GT Q6H PRN PRN Reason: FEVER Albuterol Sulfate (Ventolin 0.083% Nebulizer Soln -) 1 amp NEB Q4H PRN PRN Reason: SHORT OF BREATH/WHEEZING Last Admin: 09/19/15 11:52 Dose: 1 amp Amino Acids (Prostat Sugar-Free Packet -) 30 ml PO BID@0800,1730 [facility] Last Admin: 09/19/15 17:33 Dose: 30 ml Amlodipine Besylate (Norvasc -) 10 mg GT DAILY [facility] Last Admin: 09/19/15 10:33 Dose: 10 mg Collagenase (Santyl -) 1 applic TP DAILY [facility] Last Admin: 09/19/15 10:34 Dose: 1 applic Ibuprofen (Motrin Oral Suspension -) 200 mg PO Q6H PRN PRN Reason: FEVER Insulin Aspart (Novolog Vial) 0 units SQ Q6HPO [facility] PRN Reason: Protocol Last Admin: 09/20/15 06:15 Dose: Not Given Insulin Detemir (Levemir Vial) 28 units SQ HS [facility] Last Admin: 09/19/15 21:39 Dose: 28 units Lisinopril (Prinivil -) 40 mg GT DAILY [facility] Last Admin: 09/19/15 10:33 Dose: 40 mg Metoprolol Tartrate (Lopressor Injection -) 5 mg IVPB Q6H PRN PRN Reason: HYPERTENSION Metoprolol Tartrate 100 mg/ (Metoprolol Tartrate 25 mg) 125 mg GT BID [facility] Last Admin: 09/19/15 21:39 Dose: 125 mg Multivitamins (Thera-Plus -) 5 ml GT DAILY [facility] Last Admin: 09/19/15 10:34 Dose: 5 ml Ondansetron HCl (Zofran Injection -) 4 mg IVPB Q6H PRN PRN Reason: NAUSEA Pantoprazole Sodium (Protonix Packets For Oral Suspension -) 40 mg GT DAILY [facility] Last Admin: 09/19/15 10:34 Dose: 40 mg Silver Sulfadiazine (Silvadene -) 1 applic TP DAILY [facility] Last Admin: 09/19/15 10:34 Dose: 1 applic A/P Acute Respiratory Failure s/p Tracheostomy Acute CVA/Anoxic Brain Injury Acute Lower Diverticular GI Bleed Acute Blood Loss Anemia s/p Pneumonia HTN DM CKD + C Diff Ag Fever - enteral feeds - DVT prophylaxis - aspiration precautions - trach collar as tolerated - may not need vent facility placement if tolerating trach collar
--- NOTE | 2015-09-20 16:25 | PN ---
Progress Note (short form) - Note Progress Note: Subjective: pt seen and examined at bedside, maintaining stable status with trach collar 40%. Objective: Last Vital Signs Temp Pulse Resp BP Pulse Ox 99.5 F 96 H 20 144/85 98 09/19/15 07:00 09/19/15 07:00 09/18/15 22:00 09/19/15 07:00 09/18/15 22:52 PE: Neuro: spontaneous eye movement, non verbal Pulm: Tach collar placed, clear anteriorly Cv: s1 s2 rrr no mrg Abd: peg tube CDI, soft, +Bs Ext: Spontaneous movement of RUE LUE edema +2, no lower ext edema, warm to touch Current Medications Generic Name Dose Route Start Last Admin Trade Name Freq PRN Reason Stop Dose Admin Acetaminophen 650 mg 09/09/15 09:29 Tylenol Oral Solution - GT Q6H PRN FEVER Albuterol Sulfate 1 amp 09/18/15 09:30 09/19/15 11:52 Ventolin 0.083% Nebulizer Soln - NEB 1 amp Q4H PRN Administration SHORT OF BREATH/WHEEZING Amino Acids 30 ml 09/15/15 17:30 09/20/15 08:00 Prostat Sugar-Free Packet - PO 30 ml BID@0800,1730 [facility] Administration Amlodipine Besylate 10 mg 09/09/15 10:00 09/20/15 10:00 Norvasc - GT 10 mg DAILY [facility] Administration Collagenase 1 applic 09/09/15 10:00 09/20/15 10:00 Santyl - TP 1 applic DAILY [facility] Administration Ibuprofen 200 mg 09/09/15 09:29 Motrin Oral Suspension - PO Q6H PRN FEVER Insulin Aspart 0 units 09/09/15 12:00 09/20/15 12:51 Novolog Vial SQ Not Given Q6HPO [facility] Protocol Insulin Detemir 28 units 09/09/15 22:00 09/19/15 21:39 Levemir Vial SQ 28 units HS [facility] Administration Lisinopril 40 mg 09/09/15 10:00 09/20/15 10:00 Prinivil - GT 40 mg DAILY [facility] Administration Metoprolol Tartrate 5 mg 09/09/15 09:29 Lopressor Injection - IVPB Q6H PRN HYPERTENSION Metoprolol Tartrate 100 mg/ 125 mg 09/17/15 10:00 09/20/15 10:00 Metoprolol Tartrate 25 mg GT 125 mg BID [facility] Administration Multivitamins 5 ml 09/09/15 10:00 09/20/15 10:00 Thera-Plus - GT 5 ml DAILY [facility] Administration Ondansetron HCl 4 mg 09/09/15 09:29 Zofran Injection - IVPB Q6H PRN NAUSEA Pantoprazole Sodium 40 mg 09/09/15 10:00 09/20/15 10:00 Protonix Packets For Oral Suspension - GT 40 mg DAILY [facility] Administration Silver Sulfadiazine 1 applic 09/09/15 10:00 09/20/15 10:00 Silvadene - TP 1 applic DAILY [facility] Administration Assessment: 75 year old male with PMHx of HTN, IDDM, inguinal hernia who presented to the ED with diverticular bleed s/p R hemicolectomy with hospital course complicated by 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 Plan: 1. Anoxic brain injury s/p brainstem CVAs - Mental status unchanged 2. Respiratory failure secondary to anoxic brain injury - On trach collar since 09/14/15, to this fact may no longer need placement d/t vent. Will discuss with CM - Albuterol neb PRN 3. Leukocytosis - During this admission pt has has persistent leukocytosis, all culture date negative - Elevated today, continue to monitor, likely neurogenic 4. 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 HTN - Continue lisinopril, metoprolol, amlodipine 6. Multiple pressure ulcers - Stage III sacrum healing, Stage II left ear healing, per wound care assessment - Collagenase to Stage III slough area, silvadene to Stage II left ear - turn and position q2h 7. S/p diverticular bleed with right hemicolectomy - S/p PEG with continuous tube feeds 8. Hypernatremia - Resolved; continue free water via feeding tube pump @ 45cc's per hour 9. IDDM - Levemir 28 units HS - ISS BGM ACHS FEN: -FLUIDS: 45cc free water hourly via tube feeds pump -ELECTROLYTES: replete as indicated -NUTRITION: Glucerna tube feeds DVT Prophylaxis: SCDs, lovenox Dispo: - Placement issue continue issues due to lack of insurance. Case management aware, placement facilities increase as may no longer vent placement with trach collar in place CODE STATUS: DNR
[2015-09-20] MEDS: INSULIN DETEMIR 100 UNITS/ML MDV SQ SCH (23:00)
[2015-09-20] MEDS: ACETAMINOPHEN 650 MG/20.3 ML ORAL SOLUTION (CUPS) GT PRN (23:03)
[2015-09-21] MEDS: INSULIN (NOVOLOG) ASPART 100 UNITS/ML 10ML VIAL SQ SCH ×4 (07:09→23:04)
[2015-09-21] MEDS: AMINO ACIDS/PROTEIN HYDROLYS SUGAR-FREE 30 ML PACKET PO SCH ×2 (08:28→17:40)
[2015-09-21] MEDS: LISINOPRIL 20 MG TABLET (FP) GT SCH (09:57)
[2015-09-21] MEDS: PANTOPRAZOLE SOD 40 MG SUSPENSION PACKET GT SCH (09:57)
[2015-09-21] MEDS: METOPROLOL TARTRATE 100 MG, METOPROLOL TARTRATE 25 MG GT SCH ×2 (09:57→23:03)
[2015-09-21] MEDS: MULTIVITAMINS THERAPEUTIC GT SCH (09:57)
[2015-09-21] MEDS: amLODIPine BESYLATE 10 MG TABLET (FP) GT SCH (09:57)
[2015-09-21] MEDS: COLLAGENASE CLOSTRIDIUM HIST. 30 GRAMS TUBE TP SCH (09:58)
[2015-09-21] MEDS: SILVER SULFADIAZINE 1% TOP CREAM 50 GM JAR TP SCH (09:58)
--- NOTE | 2015-09-21 13:09 | PN ---
Progress Note (short form) - Note Progress Note: PULMONARY Febrile overnight. Tolerating trach collar over 2 days. Last Vital Signs Temp Pulse Resp BP Pulse Ox 98.8 F 106 H 18 145/78 95 09/21/15 10:00 09/21/15 10:00 09/21/15 10:00 09/21/15 10:00 09/21/15 10:00 Gen: eyes open, breathing nonlabored Heart: RRR Lung: decreased breath sounds at the bases Abd: soft, nontender Ext: no edema CBC, BMP 09/18/15 08:10 09/18/15 08:10 Active Medications Acetaminophen (Tylenol Oral Solution -) 650 mg GT Q6H PRN PRN Reason: FEVER Last Admin: 09/20/15 23:03 Dose: 650 mg Albuterol Sulfate (Ventolin 0.083% Nebulizer Soln -) 1 amp NEB Q4H PRN PRN Reason: SHORT OF BREATH/WHEEZING Last Admin: 09/19/15 11:52 Dose: 1 amp Amino Acids (Prostat Sugar-Free Packet -) 30 ml PO BID@0800,1730 [facility] Last Admin: 09/21/15 08:28 Dose: 30 ml Amlodipine Besylate (Norvasc -) 10 mg GT DAILY [facility] Last Admin: 09/21/15 09:57 Dose: 10 mg Collagenase (Santyl -) 1 applic TP DAILY [facility] Last Admin: 09/21/15 09:58 Dose: 1 applic Ibuprofen (Motrin Oral Suspension -) 200 mg PO Q6H PRN PRN Reason: FEVER Insulin Aspart (Novolog Vial) 0 units SQ Q6HPO [facility] PRN Reason: Protocol Last Admin: 09/21/15 07:09 Dose: Not Given Insulin Detemir (Levemir Vial) 28 units SQ HS [facility] Last Admin: 09/20/15 23:00 Dose: 28 units Lisinopril (Prinivil -) 40 mg GT DAILY [facility] Last Admin: 09/21/15 09:57 Dose: 40 mg Metoprolol Tartrate (Lopressor Injection -) 5 mg IVPB Q6H PRN PRN Reason: HYPERTENSION Metoprolol Tartrate 100 mg/ (Metoprolol Tartrate 25 mg) 125 mg GT BID [facility] Last Admin: 09/21/15 09:57 Dose: 125 mg Multivitamins (Thera-Plus -) 5 ml GT DAILY [facility] Last Admin: 09/21/15 09:57 Dose: 5 ml Ondansetron HCl (Zofran Injection -) 4 mg IVPB Q6H PRN PRN Reason: NAUSEA Pantoprazole Sodium (Protonix Packets For Oral Suspension -) 40 mg GT DAILY [facility] Last Admin: 09/21/15 09:57 Dose: 40 mg Silver Sulfadiazine (Silvadene -) 1 applic TP DAILY [facility] Last Admin: 09/21/15 09:58 Dose: 1 applic A/P Acute Respiratory Failure s/p Tracheostomy Acute CVA/Anoxic Brain Injury Acute Lower Diverticular GI Bleed Acute Blood Loss Anemia s/p Pneumonia HTN DM CKD + C Diff Ag Fever - enteral feeds - DVT prophylaxis - aspiration precautions - trach collar as tolerated - may not need vent facility placement if tolerating trach collar
--- NOTE | 2015-09-21 16:16 | PN ---
Progress Note (short form) - Note Progress Note: Subjective: pt seen and examined at bedside, stable on trach collar 40%. Objective: Last Vital Signs Temp Pulse Resp BP Pulse Ox 99.8 F H 82 18 122/83 96 09/21/15 15:06 09/21/15 15:06 09/21/15 15:06 09/21/15 15:06 09/21/15 10:30 PE: Neuro: spontaneous eye movement, non verbal Pulm: Tach collar placed, clear anteriorly Cv: s1 s2 rrr no mrg Abd: peg tube CDI, soft, +Bs Ext: Spontaneous movement of RUE LUE edema +2, no lower ext edema, warm to touch Current Medications Generic Name Dose Route Start Last Admin Trade Name Freq PRN Reason Stop Dose Admin Acetaminophen 650 mg 09/09/15 09:29 09/20/15 23:03 Tylenol Oral Solution - GT 650 mg Q6H PRN Administration FEVER Albuterol Sulfate 1 amp 09/18/15 09:30 09/19/15 11:52 Ventolin 0.083% Nebulizer Soln - NEB 1 amp Q4H PRN Administration SHORT OF BREATH/WHEEZING Amino Acids 30 ml 09/15/15 17:30 09/21/15 08:28 Prostat Sugar-Free Packet - PO 30 ml BID@0800,1730 [facility] Administration Amlodipine Besylate 10 mg 09/09/15 10:00 09/21/15 09:57 Norvasc - GT 10 mg DAILY [facility] Administration Collagenase 1 applic 09/09/15 10:00 09/21/15 09:58 Santyl - TP 1 applic DAILY [facility] Administration Ibuprofen 200 mg 09/09/15 09:29 Motrin Oral Suspension - PO Q6H PRN FEVER Insulin Aspart 0 units 09/09/15 12:00 09/21/15 12:00 Novolog Vial SQ 2 units Q6HPO [facility] Administration Protocol Insulin Detemir 28 units 09/09/15 22:00 09/20/15 23:00 Levemir Vial SQ 28 units HS [facility] Administration Lisinopril 40 mg 09/09/15 10:00 09/21/15 09:57 Prinivil - GT 40 mg DAILY [facility] Administration Metoprolol Tartrate 5 mg 09/09/15 09:29 Lopressor Injection - IVPB Q6H PRN HYPERTENSION Metoprolol Tartrate 100 mg/ 125 mg 09/17/15 10:00 09/21/15 09:57 Metoprolol Tartrate 25 mg GT 125 mg BID [facility] Administration Multivitamins 5 ml 09/09/15 10:00 09/21/15 09:57 Thera-Plus - GT 5 ml DAILY [facility] Administration Ondansetron HCl 4 mg 09/09/15 09:29 Zofran Injection - IVPB Q6H PRN NAUSEA Pantoprazole Sodium 40 mg 09/09/15 10:00 09/21/15 09:57 Protonix Packets For Oral Suspension - GT 40 mg DAILY [facility] Administration Silver Sulfadiazine 1 applic 09/09/15 10:00 09/21/15 09:58 Silvadene - TP 1 applic DAILY [facility] Administration Assessment: 75 year old male with PMHx of HTN, IDDM, inguinal hernia who presented to the ED with diverticular bleed s/p R hemicolectomy with hospital course complicated by 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 Plan: 1. Anoxic brain injury s/p brainstem CVAs - Mental status unchanged 2. Respiratory failure secondary to anoxic brain injury - Cont trach collar - Albuterol neb PRN 3. Leukocytosis - During this admission pt has has persistent leukocytosis, all culture date negative 4. 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 HTN - Continue lisinopril, metoprolol, amlodipine 6. Multiple pressure ulcers - Stage III sacrum healing, Stage II left ear healing, per wound care assessment - Collagenase to Stage III slough area, silvadene to Stage II left ear - turn and position q2h 7. S/p diverticular bleed with right hemicolectomy - S/p PEG with continuous tube feeds 8. Hypernatremia - Resolved; continue free water via feeding tube pump @ 45cc's per hour 9. IDDM - Levemir 28 units HS - ISS BGM ACHS FEN: -FLUIDS: 45cc free water hourly via tube feeds pump -ELECTROLYTES: replete as indicated -NUTRITION: Glucerna tube feeds DVT Prophylaxis: SCDs, lovenox CODE STATUS: DNR Dispo: - Placement issue continue issues due to lack of insurance. Case management aware, placement facilities increase as may no longer vent placement with trach collar in place CODE STATUS: DNR
[2015-09-21] MEDS: INSULIN DETEMIR 100 UNITS/ML MDV SQ SCH (23:04)
[2015-09-22] MEDS: INSULIN (NOVOLOG) ASPART 100 UNITS/ML 10ML VIAL SQ SCH ×3 (06:50→17:34)
[2015-09-22] MEDS: AMINO ACIDS/PROTEIN HYDROLYS SUGAR-FREE 30 ML PACKET PO SCH ×2 (08:08→17:34)
[2015-09-22] MEDS: amLODIPine BESYLATE 10 MG TABLET (FP) GT SCH (11:29)
[2015-09-22] MEDS: LISINOPRIL 20 MG TABLET (FP) GT SCH (11:29)
[2015-09-22] MEDS: METOPROLOL TARTRATE 100 MG, METOPROLOL TARTRATE 25 MG GT SCH ×2 (11:29→22:39)
[2015-09-22] MEDS: PANTOPRAZOLE SOD 40 MG SUSPENSION PACKET GT SCH (11:29)
[2015-09-22] MEDS: MULTIVITAMINS THERAPEUTIC GT SCH (11:30)
[2015-09-22] MEDS: SILVER SULFADIAZINE 1% TOP CREAM 50 GM JAR TP SCH (12:46)
[2015-09-22] MEDS: COLLAGENASE CLOSTRIDIUM HIST. 30 GRAMS TUBE TP SCH (12:46)
--- NOTE | 2015-09-22 13:10 | PN ---
Progress Note (short form) - Note Progress Note: Subjective: pt seen and examined at bedside, stable on trach collar 40%. Objective: Last Vital Signs Temp Pulse Resp BP Pulse Ox 98.9 F 108 H 20 152/86 98 09/22/15 10:00 09/22/15 10:00 09/22/15 10:00 09/22/15 10:00 09/22/15 10:00 PE: General: No acute distress Neuro: spontaneous eye movement, non verbal Pulm: Tach collar placed, clear anteriorly Cv: s1 s2 rrr no mrg Abd: peg tube CDI, soft, +Bs Ext: LUE edema +2, no lower ext edema, warm to touch CBCD WBC 12.2 K/mm3 (4.0-10.0) H 09/18/15 08:10 RBC 3.09 M/mm3 (4.00-5.60) L 09/18/15 08:10 Hgb 8.7 GM/dL (11.7-16.9) L D 09/18/15 08:10 Hct 26.7 % (35.4-49) L 09/18/15 08:10 MCV 86.3 fl (80-96) 09/18/15 08:10 MCHC 32.5 g/dl (32.0-35.9) 09/18/15 08:10 RDW 15.4 % (11.9-15.9) 09/18/15 08:10 Plt Count 297 K/MM3 (134-434) 09/18/15 08:10 MPV 7.0 fl (7.5-11.1) L 09/18/15 08:10 CMP Sodium 140 mmol/L (136-145) 09/18/15 08:10 Potassium 3.7 mmol/L (3.5-5.1) 09/18/15 08:10 Chloride 98 mmol/L (98-107) 09/18/15 08:10 Carbon Dioxide 34 mmol/L (21-32) H 09/18/15 08:10 Anion Gap 8 (8-16) 09/18/15 08:10 BUN 14 mg/dL (7-18) D 09/18/15 08:10 Creatinine 0.5 mg/dL (0.7-1.3) L 09/18/15 08:10 Creat Clearance w eGFR > 60 (>60) 09/08/15 05:10 Calcium 9.7 mg/dL (8.5-10.1) 09/18/15 08:10 Total Bilirubin 0.2 mg/dL (0.2-1.0) 09/08/15 05:10 AST 10 U/L (15-37) L D 09/08/15 05:10 ALT 15 U/L (12-78) 09/08/15 05:10 Alkaline Phosphatase 95 U/L (45-117) 09/08/15 05:10 Total Protein 6.7 g/dl (6.4-8.2) 09/08/15 05:10 Albumin 2.6 g/dl (3.4-5.0) L 09/08/15 05:10 Current Medications Generic Name Dose Route Start Last Admin Trade Name Freq PRN Reason Stop Dose Admin Acetaminophen 650 mg 09/09/15 09:29 09/20/15 23:03 Tylenol Oral Solution - GT 650 mg Q6H PRN Administration FEVER Albuterol Sulfate 1 amp 09/18/15 09:30 09/19/15 11:52 Ventolin 0.083% Nebulizer Soln - NEB 1 amp Q4H PRN Administration SHORT OF BREATH/WHEEZING Amino Acids 30 ml 09/15/15 17:30 09/22/15 08:08 Prostat Sugar-Free Packet - PO 30 ml BID@0800,1730 [facility] Administration Amlodipine Besylate 10 mg 09/09/15 10:00 09/22/15 11:29 Norvasc - GT 10 mg DAILY [facility] Administration Collagenase 1 applic 09/09/15 10:00 09/22/15 12:46 Santyl - TP 1 applic DAILY [facility] Administration Ibuprofen 200 mg 09/09/15 09:29 Motrin Oral Suspension - PO Q6H PRN FEVER Insulin Aspart 0 units 09/09/15 12:00 09/22/15 11:33 Novolog Vial SQ 2 units Q6HPO [facility] Administration Protocol Insulin Detemir 28 units 09/09/15 22:00 09/21/15 23:04 Levemir Vial SQ 28 units HS [facility] Administration Lisinopril 40 mg 09/09/15 10:00 09/22/15 11:29 Prinivil - GT 40 mg DAILY [facility] Administration Metoprolol Tartrate 5 mg 09/09/15 09:29 Lopressor Injection - IVPB Q6H PRN HYPERTENSION Metoprolol Tartrate 100 mg/ 125 mg 09/17/15 10:00 09/22/15 11:29 Metoprolol Tartrate 25 mg GT 125 mg BID [facility] Administration Multivitamins 5 ml 09/09/15 10:00 09/22/15 11:30 Thera-Plus - GT 5 ml DAILY [facility] Administration Ondansetron HCl 4 mg 09/09/15 09:29 Zofran Injection - IVPB Q6H PRN NAUSEA Pantoprazole Sodium 40 mg 09/09/15 10:00 09/22/15 11:29 Protonix Packets For Oral Suspension - GT 40 mg DAILY [facility] Administration Silver Sulfadiazine 1 applic 09/09/15 10:00 09/22/15 12:46 Silvadene - TP 1 applic DAILY [facility] Administration Assessment: 75 year old male with PMHx of HTN, IDDM, inguinal hernia who presented to the ED with diverticular bleed s/p R hemicolectomy with hospital course complicated by 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 Plan: 1. Anoxic brain injury s/p brainstem CVAs - Mental status unchanged 2. Respiratory failure secondary to anoxic brain injury - Cont trach collar - Albuterol neb PRN 3. Leukocytosis - During this admission pt has has persistent leukocytosis, all culture date negative - afebrile 4. 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 HTN - Continue lisinopril, metoprolol, amlodipine 6. Multiple pressure ulcers - Stage III sacrum healing, Stage II left ear healing, per wound care assessment - Collagenase to Stage III slough area, silvadene to Stage II left ear - turn and position q2h 7. S/p diverticular bleed with right hemicolectomy - S/p PEG with continuous tube feeds 8. Hypernatremia - Resolved; continue free water via feeding tube pump @ 45cc's per hour 9. IDDM - Levemir 28 units HS - ISS BGM ACHS FEN: -FLUIDS: 45cc free water hourly via tube feeds pump -ELECTROLYTES: replete as indicated -NUTRITION: Glucerna tube feeds DVT Prophylaxis: SCDs, lovenox CODE STATUS: DNR
[2015-09-22] MEDS: INSULIN DETEMIR 100 UNITS/ML MDV SQ SCH (22:33)
[2015-09-23] MEDS: INSULIN (NOVOLOG) ASPART 100 UNITS/ML 10ML VIAL SQ SCH ×5 (00:10→23:10)
[2015-09-23 08:00] LABS: MCH 28.5 pg (25.7-33.7); MCHC 33.1 g/dl (32.0-35.9); MEAN CELL VOLUME 86.2 fl (80-96); MEAN PLT VOLUME 6.8 fl (7.5-11.1); PLATELET COUNT 269 K/MM3 (134-434); RDW 15.4 % (11.9-15.9)
[2015-09-23] MEDS: AMINO ACIDS/PROTEIN HYDROLYS SUGAR-FREE 30 ML PACKET PO SCH ×2 (08:26→17:35)
[2015-09-23 08:29] LABS: CALCIUM 9.6 mg/dL (8.5-10.1); CREATININE 0.5 mg/dL (0.7-1.3)
--- NOTE | 2015-09-23 09:53 | PN ---
Progress Note (short form) - Note Progress Note: Subjective: pt seen and examined at bedside, stable on trach collar 40%. Objective: Last Vital Signs Temp Pulse Resp BP Pulse Ox 98.8 F 84 20 146/82 98 09/23/15 06:00 09/23/15 06:00 09/23/15 06:00 09/23/15 06:00 09/23/15 02:24 PE: General: No acute distress Neuro: spontaneous eye movement, non verbal Pulm: Tach collar placed, rhonchi Cv: s1 s2 rrr no mrg Abd: peg tube CDI, soft, +Bs Ext: LUE edema +1, no lower ext edema, warm to touch CBCD WBC 9.0 K/mm3 (4.0-10.0) 09/23/15 07:00 RBC 2.97 M/mm3 (4.00-5.60) L 09/23/15 07:00 Hgb 8.5 GM/dL (11.7-16.9) L 09/23/15 07:00 Hct 25.6 % (35.4-49) L 09/23/15 07:00 MCV 86.2 fl (80-96) 09/23/15 07:00 MCHC 33.1 g/dl (32.0-35.9) 09/23/15 07:00 RDW 15.4 % (11.9-15.9) 09/23/15 07:00 Plt Count 269 K/MM3 (134-434) 09/23/15 07:00 MPV 6.8 fl (7.5-11.1) L 09/23/15 07:00 CMP Sodium 138 mmol/L (136-145) 09/23/15 07:00 Potassium 3.3 mmol/L (3.5-5.1) L 09/23/15 07:00 Chloride 98 mmol/L (98-107) 09/23/15 07:00 Carbon Dioxide 32 mmol/L (21-32) 09/23/15 07:00 Anion Gap 8 (8-16) 09/23/15 07:00 BUN 15 mg/dL (7-18) 09/23/15 07:00 Creatinine 0.5 mg/dL (0.7-1.3) L 09/23/15 07:00 Creat Clearance w eGFR > 60 (>60) 09/08/15 05:10 Calcium 9.6 mg/dL (8.5-10.1) 09/23/15 07:00 Total Bilirubin 0.2 mg/dL (0.2-1.0) 09/08/15 05:10 AST 10 U/L (15-37) L D 09/08/15 05:10 ALT 15 U/L (12-78) 09/08/15 05:10 Alkaline Phosphatase 95 U/L (45-117) 09/08/15 05:10 Total Protein 6.7 g/dl (6.4-8.2) 09/08/15 05:10 Albumin 2.6 g/dl (3.4-5.0) L 09/08/15 05:10 Current Medications Generic Name Dose Route Start Last Admin Trade Name Freq PRN Reason Stop Dose Admin Acetaminophen 650 mg 09/09/15 09:29 09/20/15 23:03 Tylenol Oral Solution - GT 650 mg Q6H PRN Administration FEVER Albuterol Sulfate 1 amp 09/18/15 09:30 09/19/15 11:52 Ventolin 0.083% Nebulizer Soln - NEB 1 amp Q4H PRN Administration SHORT OF BREATH/WHEEZING Amino Acids 30 ml 09/15/15 17:30 09/23/15 08:26 Prostat Sugar-Free Packet - PO 30 ml BID@0800,1730 KWAKU Administration Amlodipine Besylate 10 mg 09/09/15 10:00 09/22/15 11:29 Norvasc - GT 10 mg DAILY KWAKU Administration Collagenase 1 applic 09/09/15 10:00 09/22/15 12:46 Santyl - TP 1 applic DAILY KWAKU Administration Ibuprofen 200 mg 09/09/15 09:29 Motrin Oral Suspension - PO Q6H PRN FEVER Insulin Aspart 0 units 09/09/15 12:00 09/23/15 06:24 Novolog Vial SQ 2 units Q6HPO KWAKU Administration Protocol Insulin Detemir 28 units 09/09/15 22:00 09/22/15 22:33 Levemir Vial SQ 28 units HS KWAKU Administration Lisinopril 40 mg 09/09/15 10:00 09/22/15 11:29 Prinivil - GT 40 mg DAILY KWAKU Administration Metoprolol Tartrate 5 mg 09/09/15 09:29 Lopressor Injection - IVPB Q6H PRN HYPERTENSION Metoprolol Tartrate 100 mg/ 125 mg 09/17/15 10:00 09/22/15 22:39 Metoprolol Tartrate 25 mg GT 125 mg BID KWAKU Administration Multivitamins 5 ml 09/09/15 10:00 09/22/15 11:30 Thera-Plus - GT 5 ml DAILY KWAKU Administration Ondansetron HCl 4 mg 09/09/15 09:29 Zofran Injection - IVPB Q6H PRN NAUSEA Pantoprazole Sodium 40 mg 09/09/15 10:00 09/22/15 11:29 Protonix Packets For Oral Suspension - GT 40 mg DAILY KWAKU Administration Silver Sulfadiazine 1 applic 09/09/15 10:00 09/22/15 12:46 Silvadene - TP 1 applic DAILY KWAKU Administration Assessment/plan: 75 year old male with PMHx of HTN, IDDM, inguinal hernia who presented to the ED with diverticular bleed s/p R hemicolectomy with hospital course complicated by 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 Anoxic brain injury s/p brainstem CVAs - Mental status unchanged Respiratory failure secondary to anoxic brain injury - Cont trach collar - Albuterol neb PRN Leukocytosis - During this admission pt has has persistent leukocytosis, all culture date negative - afebrile - resolved Iliac artery bleed s/p embolization 09/03 - Stable at this time HTN - Continue lisinopril, metoprolol, amlodipine Multiple pressure ulcers - Stage III sacrum healing, Stage II left ear healing, per wound care assessment - Collagenase to Stage III slough area, silvadene to Stage II left ear - turn and position q2h S/p diverticular bleed with right hemicolectomy - S/p PEG with continuous tube feeds Hypernatremia - Resolved; continue free water via feeding tube pump @ 45cc's per hour IDDM - Levemir 28 units HS - ISS BGM ACHS FEN: -FLUIDS: 45cc free water hourly via tube feeds pump -ELECTROLYTES: replete as indicated. Hypokalemia today, repleted -NUTRITION: Glucerna tube feeds DVT Prophylaxis: SCDs, lovenox CODE STATUS: DNR
[2015-09-23] MEDS: LISINOPRIL 20 MG TABLET (FP) GT SCH (10:19)
[2015-09-23] MEDS: amLODIPine BESYLATE 10 MG TABLET (FP) GT SCH (10:20)
[2015-09-23] MEDS: PANTOPRAZOLE SOD 40 MG SUSPENSION PACKET GT SCH (10:20)
[2015-09-23] MEDS: METOPROLOL TARTRATE 100 MG, METOPROLOL TARTRATE 25 MG GT SCH ×2 (10:20→23:05)
[2015-09-23] MEDS: MULTIVITAMINS THERAPEUTIC GT SCH (10:22)
[2015-09-23] MEDS: COLLAGENASE CLOSTRIDIUM HIST. 30 GRAMS TUBE TP SCH (10:38)
[2015-09-23] MEDS: SILVER SULFADIAZINE 1% TOP CREAM 50 GM JAR TP SCH (10:39)
--- NOTE | 2015-09-23 11:04 | PN ---
Progress Note (short form) - Note Progress Note: PULMONARY PATIENT EXAMINED / stable on trach collar/O2 Intermittently opening eyes to command/moving right side. CLINICAL CONDITION UNCHANGED A/P Respiratory Failure s/p Tracheostomy now stable on O2 off vent Acute CVA/Anoxic Brain Injury S/P Acute Lower Diverticular GI Bleed Acute Blood Loss Anemia s/p Pneumonia HTN DM CKD + C Diff Ag - continue trach collar with O2 - enteral feeds - DVT/GI prophylaxis - snf placement Demario BANUELOS MD
[2015-09-23] MEDS: INSULIN DETEMIR 100 UNITS/ML MDV SQ SCH (23:10)
[2015-09-24] MEDS: INSULIN (NOVOLOG) ASPART 100 UNITS/ML 10ML VIAL SQ SCH ×3 (06:30→17:49)
[2015-09-24] MEDS: AMINO ACIDS/PROTEIN HYDROLYS SUGAR-FREE 30 ML PACKET PO SCH ×2 (09:05→17:49)
[2015-09-24] MEDS: METOPROLOL TARTRATE 100 MG, METOPROLOL TARTRATE 25 MG GT SCH ×2 (09:19→22:04)
[2015-09-24] MEDS: MULTIVITAMINS THERAPEUTIC GT SCH (09:20)
[2015-09-24] MEDS: amLODIPine BESYLATE 10 MG TABLET (FP) GT SCH (09:20)
[2015-09-24] MEDS: LISINOPRIL 20 MG TABLET (FP) GT SCH (09:20)
[2015-09-24] MEDS: PANTOPRAZOLE SOD 40 MG SUSPENSION PACKET GT SCH (09:20)
[2015-09-24] MEDS: SILVER SULFADIAZINE 1% TOP CREAM 50 GM JAR TP SCH (11:00)
[2015-09-24] MEDS: COLLAGENASE CLOSTRIDIUM HIST. 30 GRAMS TUBE TP SCH (11:00)
--- NOTE | 2015-09-24 15:19 | PN ---
Progress Note (short form) - Note Progress Note: Subjective: pt seen and examined at bedside. No acute events overnight. Objective: Selected Entries 09/24/15 05:00 Temperature 98.8 F Pulse Rate 83 Respiratory 20 Rate Blood Pressure 162/95 PE: General: No acute distress Neuro: spontaneous eye movement, non verbal Pulm: Tach collar placed, rhonchi Cv: s1 s2 rrr no mrg Abd: peg tube CDI, soft, +Bs Ext: LUE edema +1, no lower ext edema, warm to touch CBCD WBC 9.0 K/mm3 (4.0-10.0) 09/23/15 07:00 RBC 2.97 M/mm3 (4.00-5.60) L 09/23/15 07:00 Hgb 8.5 GM/dL (11.7-16.9) L 09/23/15 07:00 Hct 25.6 % (35.4-49) L 09/23/15 07:00 MCV 86.2 fl (80-96) 09/23/15 07:00 MCHC 33.1 g/dl (32.0-35.9) 09/23/15 07:00 RDW 15.4 % (11.9-15.9) 09/23/15 07:00 Plt Count 269 K/MM3 (134-434) 09/23/15 07:00 MPV 6.8 fl (7.5-11.1) L 09/23/15 07:00 CMP Sodium 138 mmol/L (136-145) 09/23/15 07:00 Potassium 3.3 mmol/L (3.5-5.1) L 09/23/15 07:00 Chloride 98 mmol/L (98-107) 09/23/15 07:00 Carbon Dioxide 32 mmol/L (21-32) 09/23/15 07:00 Anion Gap 8 (8-16) 09/23/15 07:00 BUN 15 mg/dL (7-18) 09/23/15 07:00 Creatinine 0.5 mg/dL (0.7-1.3) L 09/23/15 07:00 Creat Clearance w eGFR > 60 (>60) 09/08/15 05:10 Calcium 9.6 mg/dL (8.5-10.1) 09/23/15 07:00 Total Bilirubin 0.2 mg/dL (0.2-1.0) 09/08/15 05:10 AST 10 U/L (15-37) L D 09/08/15 05:10 ALT 15 U/L (12-78) 09/08/15 05:10 Alkaline Phosphatase 95 U/L (45-117) 09/08/15 05:10 Total Protein 6.7 g/dl (6.4-8.2) 09/08/15 05:10 Albumin 2.6 g/dl (3.4-5.0) L 09/08/15 05:10 Current Medications Generic Name Dose Route Start Last Admin Trade Name Freq PRN Reason Stop Dose Admin Acetaminophen 650 mg 09/09/15 09:29 09/20/15 23:03 Tylenol Oral Solution - GT 650 mg Q6H PRN Administration FEVER Albuterol Sulfate 1 amp 09/18/15 09:30 09/19/15 11:52 Ventolin 0.083% Nebulizer Soln - NEB 1 amp Q4H PRN Administration SHORT OF BREATH/WHEEZING Amino Acids 30 ml 09/15/15 17:30 09/23/15 08:26 Prostat Sugar-Free Packet - PO 30 ml BID@0800,1730 KWAKU Administration Amlodipine Besylate 10 mg 09/09/15 10:00 09/22/15 11:29 Norvasc - GT 10 mg DAILY KWAKU Administration Collagenase 1 applic 09/09/15 10:00 09/22/15 12:46 Santyl - TP 1 applic DAILY KWAKU Administration Ibuprofen 200 mg 09/09/15 09:29 Motrin Oral Suspension - PO Q6H PRN FEVER Insulin Aspart 0 units 09/09/15 12:00 09/23/15 06:24 Novolog Vial SQ 2 units Q6HPO KWAKU Administration Protocol Insulin Detemir 28 units 09/09/15 22:00 09/22/15 22:33 Levemir Vial SQ 28 units HS KWAKU Administration Lisinopril 40 mg 09/09/15 10:00 09/22/15 11:29 Prinivil - GT 40 mg DAILY KWAKU Administration Metoprolol Tartrate 5 mg 09/09/15 09:29 Lopressor Injection - IVPB Q6H PRN HYPERTENSION Metoprolol Tartrate 100 mg/ 125 mg 09/17/15 10:00 09/22/15 22:39 Metoprolol Tartrate 25 mg GT 125 mg BID KWAKU Administration Multivitamins 5 ml 09/09/15 10:00 09/22/15 11:30 Thera-Plus - GT 5 ml DAILY KWAKU Administration Ondansetron HCl 4 mg 09/09/15 09:29 Zofran Injection - IVPB Q6H PRN NAUSEA Pantoprazole Sodium 40 mg 09/09/15 10:00 09/22/15 11:29 Protonix Packets For Oral Suspension - GT 40 mg DAILY KWAKU Administration Silver Sulfadiazine 1 applic 09/09/15 10:00 09/22/15 12:46 Silvadene - TP 1 applic DAILY KWAKU Administration Assessment/plan: 75 year old male with PMHx of HTN, IDDM, inguinal hernia who presented to the ED with diverticular bleed s/p R hemicolectomy with hospital course complicated by 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 Anoxic brain injury s/p brainstem CVAs - Mental status unchanged Respiratory failure secondary to anoxic brain injury - Cont trach collar - Albuterol neb PRN Leukocytosis - During this admission pt has has persistent leukocytosis, all culture date negative Iliac artery bleed s/p embolization 09/03 - Stable at this time HTN - Continue lisinopril, metoprolol, amlodipine Multiple pressure ulcers - Stage III sacrum healing, Stage II left ear healing, per wound care assessment - Collagenase to Stage III slough area, silvadene to Stage II left ear - turn and position q2h S/p diverticular bleed with right hemicolectomy - S/p PEG with continuous tube feeds Hypernatremia - Resolved; continue free water via feeding tube pump @ 45cc's per hour IDDM - Levemir 28 units HS - ISS BGM ACHS FEN: -FLUIDS: 45cc free water hourly via tube feeds pump -ELECTROLYTES: replete as indicated. Hypokalemia today, repleted -NUTRITION: Glucerna tube feeds DVT Prophylaxis: SCDs, lovenox CODE STATUS: DNR
[2015-09-24] MEDS: INSULIN DETEMIR 100 UNITS/ML MDV SQ SCH (22:05)
[2015-09-25] MEDS: INSULIN (NOVOLOG) ASPART 100 UNITS/ML 10ML VIAL SQ SCH ×4 (00:59→18:35)
[2015-09-25] MEDS: amLODIPine BESYLATE 10 MG TABLET (FP) GT SCH (09:22)
[2015-09-25] MEDS: METOPROLOL TARTRATE 100 MG, METOPROLOL TARTRATE 25 MG GT SCH ×2 (09:22→22:14)
[2015-09-25] MEDS: PANTOPRAZOLE SOD 40 MG SUSPENSION PACKET GT SCH (09:23)
[2015-09-25] MEDS: LISINOPRIL 20 MG TABLET (FP) GT SCH (09:23)
[2015-09-25] MEDS: SILVER SULFADIAZINE 1% TOP CREAM 50 GM JAR TP SCH (09:24)
[2015-09-25] MEDS: COLLAGENASE CLOSTRIDIUM HIST. 30 GRAMS TUBE TP SCH (09:24)
[2015-09-25] MEDS: MULTIVITAMINS THERAPEUTIC GT SCH (09:25)
[2015-09-25] MEDS: AMINO ACIDS/PROTEIN HYDROLYS SUGAR-FREE 30 ML PACKET PO SCH ×2 (09:25→18:35)
--- NOTE | 2015-09-25 10:41 | PN ---
Progress Note (short form) - Note Progress Note: Subjective: pt seen and examined at bedside, no overnight events Objective: Last Vital Signs Temp Pulse Resp BP Pulse Ox 99.4 F 87 16 125/78 98 09/25/15 06:00 09/25/15 06:00 09/25/15 06:00 09/25/15 06:00 09/25/15 03:25 PE: General: No acute distress Neuro: spontaneous eye movement, non verbal Pulm: Tach collar placed, clear breath sounds bilaterally Cv: s1 s2 rrr no mrg Abd: peg tube CDI, soft, +Bs Ext: LUE edema +1, no lower ext edema, warm to touch CBCD WBC 9.0 K/mm3 (4.0-10.0) 09/23/15 07:00 RBC 2.97 M/mm3 (4.00-5.60) L 09/23/15 07:00 Hgb 8.5 GM/dL (11.7-16.9) L 09/23/15 07:00 Hct 25.6 % (35.4-49) L 09/23/15 07:00 MCV 86.2 fl (80-96) 09/23/15 07:00 MCHC 33.1 g/dl (32.0-35.9) 09/23/15 07:00 RDW 15.4 % (11.9-15.9) 09/23/15 07:00 Plt Count 269 K/MM3 (134-434) 09/23/15 07:00 MPV 6.8 fl (7.5-11.1) L 09/23/15 07:00 CMP Sodium 138 mmol/L (136-145) 09/23/15 07:00 Potassium 3.3 mmol/L (3.5-5.1) L 09/23/15 07:00 Chloride 98 mmol/L (98-107) 09/23/15 07:00 Carbon Dioxide 32 mmol/L (21-32) 09/23/15 07:00 Anion Gap 8 (8-16) 09/23/15 07:00 BUN 15 mg/dL (7-18) 09/23/15 07:00 Creatinine 0.5 mg/dL (0.7-1.3) L 09/23/15 07:00 Creat Clearance w eGFR > 60 (>60) 09/08/15 05:10 Calcium 9.6 mg/dL (8.5-10.1) 09/23/15 07:00 Total Bilirubin 0.2 mg/dL (0.2-1.0) 09/08/15 05:10 AST 10 U/L (15-37) L D 09/08/15 05:10 ALT 15 U/L (12-78) 09/08/15 05:10 Alkaline Phosphatase 95 U/L (45-117) 09/08/15 05:10 Total Protein 6.7 g/dl (6.4-8.2) 09/08/15 05:10 Albumin 2.6 g/dl (3.4-5.0) L 09/08/15 05:10 Current Medications Generic Name Dose Route Start Last Admin Trade Name Freq PRN Reason Stop Dose Admin Acetaminophen 650 mg 09/09/15 09:29 09/20/15 23:03 Tylenol Oral Solution - GT 650 mg Q6H PRN Administration FEVER Albuterol Sulfate 1 amp 09/18/15 09:30 09/19/15 11:52 Ventolin 0.083% Nebulizer Soln - NEB 1 amp Q4H PRN Administration SHORT OF BREATH/WHEEZING Amino Acids 30 ml 09/15/15 17:30 09/25/15 09:25 Prostat Sugar-Free Packet - PO 30 ml BID@0800,1730 KWKAU Administration Amlodipine Besylate 10 mg 09/09/15 10:00 09/25/15 09:22 Norvasc - GT 10 mg DAILY KWAKU Administration Collagenase 1 applic 09/09/15 10:00 09/25/15 09:24 Santyl - TP 1 applic DAILY KWAKU Administration Ibuprofen 200 mg 09/09/15 09:29 Motrin Oral Suspension - PO Q6H PRN FEVER Insulin Aspart 0 units 09/09/15 12:00 09/25/15 06:12 Novolog Vial SQ Not Given Q6HPO [facility] Protocol Insulin Detemir 28 units 09/09/15 22:00 09/24/15 22:05 Levemir Vial SQ 28 units HS KWAKU Administration Lisinopril 40 mg 09/09/15 10:00 09/25/15 09:23 Prinivil - GT 40 mg DAILY KWAKU Administration Metoprolol Tartrate 5 mg 09/09/15 09:29 Lopressor Injection - IVPB Q6H PRN HYPERTENSION Metoprolol Tartrate 100 mg/ 125 mg 09/17/15 10:00 09/25/15 09:22 Metoprolol Tartrate 25 mg GT 125 mg BID KWAKU Administration Multivitamins 5 ml 09/09/15 10:00 09/25/15 09:25 Thera-Plus - GT 5 ml DAILY KWAKU Administration Ondansetron HCl 4 mg 09/09/15 09:29 Zofran Injection - IVPB Q6H PRN NAUSEA Pantoprazole Sodium 40 mg 09/09/15 10:00 09/25/15 09:23 Protonix Packets For Oral Suspension - GT 40 mg DAILY KWAKU Administration Silver Sulfadiazine 1 applic 09/09/15 10:00 09/25/15 09:24 Silvadene - TP 1 applic DAILY KWAKU Administration Assessment/plan: 75 year old male with PMHx of HTN, IDDM, inguinal hernia who presented to the ED with diverticular bleed s/p R hemicolectomy with hospital course complicated by 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 Anoxic brain injury s/p brainstem CVAs - Mental status unchanged Respiratory failure secondary to anoxic brain injury - Cont trach collar - Albuterol neb PRN Leukocytosis - During this admission pt has has persistent leukocytosis, all culture date negative - afebrile Iliac artery bleed s/p embolization 09/03 - Stable at this time HTN - Continue lisinopril, metoprolol, amlodipine Multiple pressure ulcers - Stage III sacrum healing, Stage II left ear healing, per wound care assessment - Collagenase to Stage III slough area, silvadene to Stage II left ear - turn and position q2h S/p diverticular bleed with right hemicolectomy - S/p PEG with continuous tube feeds Hypernatremia - Resolved; continue free water via feeding tube pump @ 45cc's per hour IDDM - Levemir 28 units HS - ISS BGM ACHS FEN: -FLUIDS: 45cc free water hourly via tube feeds pump -ELECTROLYTES: replete as indicated. -NUTRITION: Glucerna tube feeds DVT Prophylaxis: SCDs, lovenox CODE STATUS: DNR
[2015-09-25 17:12] LABS: CALCIUM 9.6 mg/dL (8.5-10.1); CREATININE 0.6 mg/dL (0.7-1.3)
[2015-09-25] MEDS: INSULIN DETEMIR 100 UNITS/ML MDV SQ SCH (22:13)
[2015-09-26] MEDS: INSULIN (NOVOLOG) ASPART 100 UNITS/ML 10ML VIAL SQ SCH ×4 (00:21→17:19)
[2015-09-26] MEDS: ALBUTEROL SO4 0.083% IH SOL 2.5 MG/3 ML VIAL.NEB. NEB PRN (02:03)
[2015-09-26 08:09] LABS: MCH 28.6 pg (25.7-33.7); MCHC 33.3 g/dl (32.0-35.9); MEAN CELL VOLUME 85.8 fl (80-96); PLATELET COUNT 297 K/MM3 (134-434); RDW 15.8 % (11.9-15.9); WHITE BLOOD COUNT 9.9 K/mm3 (4.0-10.0)
[2015-09-26 09:13] LABS: CALCIUM 9.9 mg/dL (8.5-10.1); CREATININE 0.6 mg/dL (0.7-1.3)
[2015-09-26] MEDS: LISINOPRIL 20 MG TABLET (FP) GT SCH (09:26)
[2015-09-26] MEDS: PANTOPRAZOLE SOD 40 MG SUSPENSION PACKET GT SCH (09:26)
[2015-09-26] MEDS: COLLAGENASE CLOSTRIDIUM HIST. 30 GRAMS TUBE TP SCH (09:26)
[2015-09-26] MEDS: SILVER SULFADIAZINE 1% TOP CREAM 50 GM JAR TP SCH (09:26)
[2015-09-26] MEDS: MULTIVITAMINS THERAPEUTIC GT SCH (09:27)
[2015-09-26] MEDS: AMINO ACIDS/PROTEIN HYDROLYS SUGAR-FREE 30 ML PACKET PO SCH ×2 (09:27→17:19)
[2015-09-26] MEDS: METOPROLOL TARTRATE 100 MG, METOPROLOL TARTRATE 25 MG GT SCH ×2 (09:28→22:36)
[2015-09-26] MEDS: amLODIPine BESYLATE 10 MG TABLET (FP) GT SCH (09:28)
--- NOTE | 2015-09-26 11:56 | PN ---
Progress Note (short form) - Note Progress Note: Subjective: pt seen and examined at bedside. No acute events overnight. Objective: Last Vital Signs Temp Pulse Resp BP Pulse Ox 99.1 F 75 20 153/73 99 09/26/15 10:00 09/26/15 11:05 09/26/15 10:00 09/26/15 10:00 09/26/15 11:05 PE: General: No acute distress Neuro: spontaneous eye movement, non verbal Pulm: Tach collar placed, rhonchi Cv: s1 s2 rrr no mrg Abd: peg tube CDI, soft, +Bs Ext: LUE edema +1, no lower ext edema, warm to touch CBCD WBC 9.9 K/mm3 (4.0-10.0) 09/26/15 07:20 RBC 3.00 M/mm3 (4.00-5.60) L 09/26/15 07:20 Hgb 8.6 GM/dL (11.7-16.9) L 09/26/15 07:20 Hct 25.7 % (35.4-49) L 09/26/15 07:20 MCV 85.8 fl (80-96) 09/26/15 07:20 MCHC 33.3 g/dl (32.0-35.9) 09/26/15 07:20 RDW 15.8 % (11.9-15.9) 09/26/15 07:20 Plt Count 297 K/MM3 (134-434) 09/26/15 07:20 MPV 7.0 fl (7.5-11.1) L 09/26/15 07:20 CMP Sodium 138 mmol/L (136-145) 09/26/15 07:20 Potassium 3.4 mmol/L (3.5-5.1) L 09/26/15 07:20 Chloride 97 mmol/L (98-107) L 09/26/15 07:20 Carbon Dioxide 33 mmol/L (21-32) H 09/26/15 07:20 Anion Gap 8 (8-16) 09/26/15 07:20 BUN 17 mg/dL (7-18) 09/26/15 07:20 Creatinine 0.6 mg/dL (0.7-1.3) L 09/26/15 07:20 Creat Clearance w eGFR > 60 (>60) 09/08/15 05:10 Calcium 9.9 mg/dL (8.5-10.1) 09/26/15 07:20 Total Bilirubin 0.2 mg/dL (0.2-1.0) 09/08/15 05:10 AST 10 U/L (15-37) L D 09/08/15 05:10 ALT 15 U/L (12-78) 09/08/15 05:10 Alkaline Phosphatase 95 U/L (45-117) 09/08/15 05:10 Total Protein 6.7 g/dl (6.4-8.2) 09/08/15 05:10 Albumin 2.6 g/dl (3.4-5.0) L 09/08/15 05:10 Current Medications Generic Name Dose Route Start Last Admin Trade Name Freq PRN Reason Stop Dose Admin Acetaminophen 650 mg 09/09/15 09:29 09/20/15 23:03 Tylenol Oral Solution - GT 650 mg Q6H PRN Administration FEVER Albuterol Sulfate 1 amp 09/18/15 09:30 09/26/15 02:03 Ventolin 0.083% Nebulizer Soln - NEB 1 amp Q4H PRN Administration SHORT OF BREATH/WHEEZING Amino Acids 30 ml 09/15/15 17:30 09/26/15 09:27 Prostat Sugar-Free Packet - PO 30 ml BID@0800,1730 KWKAU Administration Amlodipine Besylate 10 mg 09/09/15 10:00 09/26/15 09:28 Norvasc - GT 10 mg DAILY KWAKU Administration Collagenase 1 applic 09/09/15 10:00 09/26/15 09:26 Santyl - TP 1 applic DAILY KWAKU Administration Ibuprofen 200 mg 09/09/15 09:29 Motrin Oral Suspension - PO Q6H PRN FEVER Insulin Aspart 0 units 09/09/15 12:00 09/26/15 12:29 Novolog Vial SQ 2 units Q6HPO KWAKU Administration Protocol Insulin Detemir 28 units 09/09/15 22:00 09/25/15 22:13 Levemir Vial SQ 28 units HS KWAKU Administration Lisinopril 40 mg 09/09/15 10:00 09/26/15 09:26 Prinivil - GT 40 mg DAILY KWAKU Administration Metoprolol Tartrate 5 mg 09/09/15 09:29 Lopressor Injection - IVPB Q6H PRN HYPERTENSION Metoprolol Tartrate 100 mg/ 125 mg 09/17/15 10:00 09/26/15 09:28 Metoprolol Tartrate 25 mg GT 125 mg BID KWAKU Administration Multivitamins 5 ml 09/09/15 10:00 09/26/15 09:27 Thera-Plus - GT 5 ml DAILY KWAKU Administration Ondansetron HCl 4 mg 09/09/15 09:29 Zofran Injection - IVPB Q6H PRN NAUSEA Pantoprazole Sodium 40 mg 09/09/15 10:00 09/26/15 09:26 Protonix Packets For Oral Suspension - GT 40 mg DAILY KWAKU Administration Silver Sulfadiazine 1 applic 09/09/15 10:00 09/26/15 09:26 Silvadene - TP 1 applic DAILY KWAKU Administration Assessment/plan: 75 year old male with PMHx of HTN, IDDM, inguinal hernia who presented to the ED with diverticular bleed s/p R hemicolectomy with hospital course complicated by 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 Anoxic brain injury s/p brainstem CVAs - Mental status unchanged Respiratory failure secondary to anoxic brain injury - Cont trach collar - Albuterol neb PRN Leukocytosis - During this admission pt has has persistent leukocytosis, all culture date negative Iliac artery bleed s/p embolization 09/03 - Stable at this time HTN - Continue lisinopril, metoprolol, amlodipine Multiple pressure ulcers - Stage III sacrum healing, Stage II left ear healing, per wound care assessment - Collagenase to Stage III slough area, silvadene to Stage II left ear - turn and position q2h S/p diverticular bleed with right hemicolectomy - S/p PEG with continuous tube feeds Hypernatremia - Resolved; continue free water via feeding tube pump @ 45cc's per hour IDDM - Levemir 28 units HS - ISS BGM ACHS FEN: -FLUIDS: 45cc free water hourly via tube feeds pump -ELECTROLYTES: replete as indicated. Hypokalemia today, repleted -NUTRITION: Glucerna tube feeds DVT Prophylaxis: SCDs, lovenox CODE STATUS: DNR
[2015-09-26] MEDS: INSULIN DETEMIR 100 UNITS/ML MDV SQ SCH (22:36)
[2015-09-26] MEDS: ENOXAPARIN NA (PORCINE) 40 MG/0.4 ML DISP.SYRIN SQ SCH (22:36)
[2015-09-27] MEDS: INSULIN (NOVOLOG) ASPART 100 UNITS/ML 10ML VIAL SQ SCH ×4 (00:30→23:27)
[2015-09-27] MEDS: METOPROLOL TARTRATE 100 MG, METOPROLOL TARTRATE 25 MG GT SCH ×2 (10:54→23:25)
[2015-09-27] MEDS: amLODIPine BESYLATE 10 MG TABLET (FP) GT SCH (10:56)
[2015-09-27] MEDS: ENOXAPARIN NA (PORCINE) 40 MG/0.4 ML DISP.SYRIN SQ SCH (10:56)
[2015-09-27] MEDS: LISINOPRIL 20 MG TABLET (FP) GT SCH (10:57)
[2015-09-27] MEDS: PANTOPRAZOLE SOD 40 MG SUSPENSION PACKET GT SCH (10:58)
[2015-09-27] MEDS: COLLAGENASE CLOSTRIDIUM HIST. 30 GRAMS TUBE TP SCH (10:58)
[2015-09-27] MEDS: SILVER SULFADIAZINE 1% TOP CREAM 50 GM JAR TP SCH (10:59)
[2015-09-27] MEDS: MULTIVITAMINS THERAPEUTIC GT SCH (10:59)
[2015-09-27] MEDS: AMINO ACIDS/PROTEIN HYDROLYS SUGAR-FREE 30 ML PACKET PO SCH ×2 (11:00→17:38)
--- NOTE | 2015-09-27 11:47 | PN ---
Progress Note (short form) - Note Progress Note: Subjective: Pt seen and examined at bedside. No acute events overnight. Appears comfortable. TC 40% Objective: Last Vital Signs Temp Pulse Resp BP Pulse Ox 100.1 F H 89 22 140/75 96 09/27/15 07:00 09/27/15 07:00 09/26/15 17:00 09/27/15 07:00 09/26/15 22:00 PE: General: No acute distress Neuro: spontaneous eye movement, non verbal Pulm: Tach collar placed, clear anteriorly Cv: s1 s2 rrr no mrg Abd: peg tube CDI, soft, +Bs Ext: LUE edema +1, no lower ext edema, warm to touch, non purposeful movement of RUE Current Medications Generic Name Dose Route Start Last Admin Trade Name Freq PRN Reason Stop Dose Admin Acetaminophen 650 mg 09/09/15 09:29 09/20/15 23:03 Tylenol Oral Solution - GT 650 mg Q6H PRN Administration FEVER Amino Acids 30 ml 09/15/15 17:30 09/27/15 11:00 Prostat Sugar-Free Packet - PO 30 ml BID@0800,1730 KWAKU Administration Amlodipine Besylate 10 mg 09/09/15 10:00 09/27/15 10:56 Norvasc - GT 10 mg DAILY KWAKU Administration Collagenase 1 applic 09/09/15 10:00 09/27/15 10:58 Santyl - TP 1 applic DAILY KWAKU Administration Enoxaparin Sodium 40 mg 09/26/15 18:15 09/27/15 10:56 Lovenox - SQ 40 mg DAILY KWAKU Administration Ibuprofen 200 mg 09/09/15 09:29 Motrin Oral Suspension - PO Q6H PRN FEVER Insulin Aspart 0 units 09/09/15 12:00 09/27/15 06:10 Novolog Vial SQ Not Given Q6HPO [facility] Protocol Insulin Detemir 28 units 09/09/15 22:00 09/26/15 22:36 Levemir Vial SQ 28 units HS KWAKU Administration Lisinopril 40 mg 09/09/15 10:00 09/27/15 10:57 Prinivil - GT 40 mg DAILY KWAKU Administration Metoprolol Tartrate 5 mg 09/09/15 09:29 Lopressor Injection - IVPB Q6H PRN HYPERTENSION Metoprolol Tartrate 100 mg/ 125 mg 09/17/15 10:00 09/27/15 10:54 Metoprolol Tartrate 25 mg GT 125 mg BID KWAKU Administration Multivitamins 5 ml 09/09/15 10:00 09/27/15 10:59 Thera-Plus - GT 5 ml DAILY KWAKU Administration Ondansetron HCl 4 mg 09/09/15 09:29 Zofran Injection - IVPB Q6H PRN NAUSEA Pantoprazole Sodium 40 mg 09/09/15 10:00 09/27/15 10:58 Protonix Packets For Oral Suspension - GT 40 mg DAILY KWAKU Administration Silver Sulfadiazine 1 applic 09/09/15 10:00 09/27/15 10:59 Silvadene - TP Not Given DAILY KWAKU Assessment: 75 year old male with PMHx of HTN, IDDM, inguinal hernia who presented to the ED with diverticular bleed s/p Righ hemicolectomy with 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 Plan: 1. Anoxic brain injury s/p brainstem CVAs - Mental status unchanged 2. Respiratory failure secondary to anoxic brain injury - Cont trach collar - Albuterol neb PRN 3. HTN - Continue lisinopril, metoprolol, amlodipine 4. Multiple pressure ulcers - Stage III sacrum healing, Stage II left ear healing, per wound care assessment - Collagenase to Stage III slough area, silvadene to Stage II left ear - turn and position q2h 5. IDDM - Levemir 28 units HS - ISS BGM ACHS FEN: -FLUIDS: 45cc free water hourly via tube feeds pump -ELECTROLYTES: replete as indicated -NUTRITION: Glucerna tube feeds DVT Prophylaxis: SCDs, lovenox CODE STATUS: DNR
[2015-09-27] MEDS: INSULIN DETEMIR 100 UNITS/ML MDV SQ SCH (21:18)
[2015-09-28] MEDS: INSULIN (NOVOLOG) ASPART 100 UNITS/ML 10ML VIAL SQ SCH ×4 (05:17→23:36)
--- NOTE | 2015-09-28 09:58 | PN ---
Progress Note (short form) - Note Progress Note: Subjective: Pt seen and examined at bedside. No acute changes overnight, resting comfortably. TC 35% Objective: Last Vital Signs Temp Pulse Resp BP Pulse Ox 99.8 F H 90 20 156/81 98 09/28/15 07:59 09/28/15 07:59 09/28/15 07:59 09/28/15 07:59 09/28/15 02:35 PE: General: No acute distress Neuro: spontaneous eye movement, non verbal Pulm: Tach collar placed, clear anteriorly Cv: s1 s2 rrr no mrg Abd: peg tube CDI, soft, +BS Ext: LUE edema +1, no lower ext edema, warm to touch, non purposeful movement of RUE Current Medications Generic Name Dose Route Start Last Admin Trade Name Freq PRN Reason Stop Dose Admin Acetaminophen 650 mg 09/09/15 09:29 09/20/15 23:03 Tylenol Oral Solution - GT 650 mg Q6H PRN Administration FEVER Amino Acids 30 ml 09/15/15 17:30 09/27/15 17:38 Prostat Sugar-Free Packet - PO 30 ml BID@0800,1730 [facility] Administration Amlodipine Besylate 10 mg 09/09/15 10:00 09/27/15 10:56 Norvasc - GT 10 mg DAILY [facility] Administration Collagenase 1 applic 09/09/15 10:00 09/27/15 10:58 Santyl - TP 1 applic DAILY [facility] Administration Enoxaparin Sodium 40 mg 09/26/15 18:15 09/27/15 10:56 Lovenox - SQ 40 mg DAILY [facility] Administration Ibuprofen 200 mg 09/09/15 09:29 Motrin Oral Suspension - PO Q6H PRN FEVER Insulin Aspart 0 units 09/09/15 12:00 09/28/15 05:17 Novolog Vial SQ Not Given Q6HPO [facility] Protocol Insulin Detemir 28 units 09/09/15 22:00 09/27/15 21:18 Levemir Vial SQ 28 units HS [facility] Administration Lisinopril 40 mg 09/09/15 10:00 09/27/15 10:57 Prinivil - GT 40 mg DAILY [facility] Administration Metoprolol Tartrate 5 mg 09/09/15 09:29 Lopressor Injection - IVPB Q6H PRN HYPERTENSION Metoprolol Tartrate 100 mg/ 125 mg 09/17/15 10:00 09/27/15 23:25 Metoprolol Tartrate 25 mg GT 125 mg BID [facility] Administration Multivitamins 5 ml 09/09/15 10:00 09/27/15 10:59 Thera-Plus - GT 5 ml DAILY [facility] Administration Ondansetron HCl 4 mg 09/09/15 09:29 Zofran Injection - IVPB Q6H PRN NAUSEA Pantoprazole Sodium 40 mg 09/09/15 10:00 09/27/15 10:58 Protonix Packets For Oral Suspension - GT 40 mg DAILY [facility] Administration Silver Sulfadiazine 1 applic 09/09/15 10:00 09/27/15 10:59 Silvadene - TP Not Given DAILY [facility] Assessment: 75 year old male with PMHx of HTN, IDDM, inguinal hernia who presented to the ED with diverticular bleed s/p Righ hemicolectomy with 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 Plan: 1. Anoxic brain injury s/p brainstem CVAs - Mental status unchanged 2. Respiratory failure secondary to anoxic brain injury - Cont trach collar - Albuterol neb PRN 3. HTN - Continue lisinopril, metoprolol, amlodipine 4. Multiple pressure ulcers - Stage III sacrum healing, Stage II left ear healing, per wound care assessment - Collagenase to Stage III slough area, silvadene to Stage II left ear - turn and position q2h 5. IDDM - Levemir 28 units HS - ISS BGM ACHS FEN: -FLUIDS: 45cc free water hourly via tube feeds pump -ELECTROLYTES: replete as indicated -NUTRITION: Glucerna tube feeds DVT Prophylaxis: SCDs, lovenox CODE STATUS: DNR
[2015-09-28] MEDS: METOPROLOL TARTRATE 100 MG, METOPROLOL TARTRATE 25 MG GT SCH ×2 (10:19→21:46)
[2015-09-28] MEDS: LISINOPRIL 20 MG TABLET (FP) GT SCH (10:19)
[2015-09-28] MEDS: amLODIPine BESYLATE 10 MG TABLET (FP) GT SCH (10:19)
[2015-09-28] MEDS: ENOXAPARIN NA (PORCINE) 40 MG/0.4 ML DISP.SYRIN SQ SCH (10:20)
[2015-09-28] MEDS: PANTOPRAZOLE SOD 40 MG SUSPENSION PACKET GT SCH (10:20)
[2015-09-28] MEDS: AMINO ACIDS/PROTEIN HYDROLYS SUGAR-FREE 30 ML PACKET PO SCH ×2 (10:20→17:42)
[2015-09-28] MEDS: MULTIVITAMINS THERAPEUTIC GT SCH (10:20)
[2015-09-28] MEDS: INSULIN DETEMIR 100 UNITS/ML MDV SQ SCH (21:40)
[2015-09-29] MEDS: INSULIN (NOVOLOG) ASPART 100 UNITS/ML 10ML VIAL SQ SCH ×3 (06:23→18:05)
[2015-09-29 08:13] LABS: BASOPHIL 1.3 % (0-2.0); EOSINOPHIL 4.8 % (0-4.5); MCH 28.4 pg (25.7-33.7); MCHC 32.9 g/dl (32.0-35.9); MEAN CELL VOLUME 86.5 fl (80-96); MEAN PLT VOLUME 7.2 fl (7.5-11.1); NEUTROPHILS 68.5 % (42.8-82.8); PLATELET COUNT 345 K/MM3 (134-434); RDW 15.9 % (11.9-15.9); WHITE BLOOD COUNT 9.9 K/mm3 (4.0-10.0)
[2015-09-29] MEDS: AMINO ACIDS/PROTEIN HYDROLYS SUGAR-FREE 30 ML PACKET PO SCH ×2 (09:00→18:05)
[2015-09-29 09:50] LABS: ANION GAP 7 (8-16); CALCIUM 9.6 mg/dL (8.5-10.1); CO2 32 mmol/L (21-32); CREATININE 0.6 mg/dL (0.7-1.3); GLUCOSE,RANDOM 161 mg/dL (74-106); SGOT/AST 31 U/L (15-37); SGPT/ALT 82 U/L (12-78)
[2015-09-29 09:53] LABS: ALK PHOS 99 U/L (45-117); BILIRUBIN,TOTAL 0.2 mg/dL (0.2-1.0); TOT PROT 7.3 g/dl (6.4-8.2)
[2015-09-29] MEDS: LISINOPRIL 20 MG TABLET (FP) GT SCH (10:42)
[2015-09-29] MEDS: ENOXAPARIN NA (PORCINE) 40 MG/0.4 ML DISP.SYRIN SQ SCH (10:42)
[2015-09-29] MEDS: amLODIPine BESYLATE 10 MG TABLET (FP) GT SCH (10:42)
[2015-09-29] MEDS: PANTOPRAZOLE SOD 40 MG SUSPENSION PACKET GT SCH (10:43)
[2015-09-29] MEDS: MULTIVITAMINS THERAPEUTIC GT SCH (10:43)
[2015-09-29] MEDS: METOPROLOL TARTRATE 100 MG, METOPROLOL TARTRATE 25 MG GT SCH ×2 (10:43→22:09)
--- NOTE | 2015-09-29 12:27 | PN ---
Progress Note (short form) - Note Progress Note: Wound Assessment H Reason for visit: Wound Assessment Request for consultation: by [facility] Interdisciplinary Wound Care Team Initial Encounter: No Previous Encounter: Yes Wounds - Wound Wound #1 Type of wound: Yes: Pressure ulcer Stage: III Location/laterality: sacrum across the midline Wound size: 6cmL x 6cm W x 0.5cmD Thickness: Partial Undermining: No Tunneling: No Drainage/exudate: yes, serosanguinous, COPIOUS Wound bed tissue: Slough, erythematous Wound edges color: Erythematous Wound edges raised: yes Wound edges rolled: yes, partially Wound edges contracted: No Pain: No Surrounding tissue to 4cm: Yes: erythematous Wound #2 Type of wound: Yes: Pressure ulcer Stage: III healing Location/laterality: left ear Wound size: 0.5cmL x 0.7cmW x 0.1cmD Thickness: Partial Undermining: No Tunneling: No Drainage/exudate: Yes, Wound bed tissue: Yes: Erythematous, slough Wound edges color: Normally pigmented Wound edges raised: No Wound edges rolled: No Wound edges contracted: No Pain: No Surrounding tissue to 4cm: Yes: Healthy Wound #3 Pressure ulcer, healed Stage II Assessment/Plan Wound #1 Diagnosis: Pressure ulcer Wound specific intervention: Collagenase to slough area TWICE DAILY Allevyn dressing Wound #2 Diagnosis: Pressure ulcer Wound specific intervention: Silvadene DAILY Wound 3 Diagnosis: pressure ulcer Wound specific intervention: none Impediments to healing: Limited mobility, Unable to self-position in bed, Hypoalbunemia, Nutritional deficiencies, Incontinence of urine, Incontinence of bowel Nutrition/Dietary supplements/vitamins: change to Jevity 1.5 at goal of 50, continue Prostat BID No recommendations; added Prostat BID today Support Surface: Accucair Overlay HOB elevation: 30 degrees Off-loading: Turning/repositioning q2h, Elevate heels off bed with pillows Incontinence management: Avoid diapers; if must be used, do not secure around patient
[2015-09-29] MEDS: COLLAGENASE CLOSTRIDIUM HIST. 30 GRAMS TUBE TP SCH ×2 (12:59→13:00)
[2015-09-29] MEDS: SILVER SULFADIAZINE 1% TOP CREAM 50 GM JAR TP SCH ×2 (12:59→13:03)
--- NOTE | 2015-09-29 13:23 | PN ---
Progress Note (short form) - Note Progress Note: Subjective: Pt seen and examined at bedside. No acute changes overnight, resting comfortably. Current Medications Generic Name Dose Route Start Last Admin Trade Name Freq PRN Reason Stop Dose Admin Acetaminophen 650 mg 09/09/15 09:29 09/20/15 23:03 Tylenol Oral Solution - GT 650 mg Q6H PRN Administration FEVER Amino Acids 30 ml 09/15/15 17:30 09/29/15 09:00 Prostat Sugar-Free Packet - PO 30 ml BID@0800,1730 [facility] Administration Amlodipine Besylate 10 mg 09/09/15 10:00 09/29/15 10:42 Norvasc - GT 10 mg DAILY [facility] Administration Collagenase 1 applic 09/09/15 10:00 09/29/15 13:00 Santyl - TP Not Given DAILY [facility] Enoxaparin Sodium 40 mg 09/26/15 18:15 09/29/15 10:42 Lovenox - SQ 40 mg DAILY [facility] Administration Ibuprofen 200 mg 09/09/15 09:29 Motrin Oral Suspension - PO Q6H PRN FEVER Insulin Aspart 0 units 09/09/15 12:00 09/29/15 12:59 Novolog Vial SQ 2 units Q6HPO [facility] Administration Protocol Insulin Detemir 28 units 09/09/15 22:00 09/28/15 21:40 Levemir Vial SQ 28 units HS [facility] Administration Lisinopril 40 mg 09/09/15 10:00 09/29/15 10:42 Prinivil - GT 40 mg DAILY [facility] Administration Metoprolol Tartrate 5 mg 09/09/15 09:29 Lopressor Injection - IVPB Q6H PRN HYPERTENSION Metoprolol Tartrate 100 mg/ 125 mg 09/17/15 10:00 09/29/15 10:43 Metoprolol Tartrate 25 mg GT 125 mg BID [facility] Administration Multivitamins 5 ml 09/09/15 10:00 09/29/15 10:43 Thera-Plus - GT 5 ml DAILY [facility] Administration Ondansetron HCl 4 mg 09/09/15 09:29 Zofran Injection - IVPB Q6H PRN NAUSEA Pantoprazole Sodium 40 mg 09/09/15 10:00 09/29/15 10:43 Protonix Packets For Oral Suspension - GT 40 mg DAILY [facility] Administration Silver Sulfadiazine 1 applic 09/09/15 10:00 09/29/15 13:03 Silvadene - TP Not Given DAILY K[facility]AKU Objective: Vital Signs Period Temp Pulse Resp BP Sys/Santiago Pulse Ox Last 24 Hr 97.7 F-99.5 F 84-103 18-20 136-145/66-79 97-98 Physical Exam: General: No acute distress Neuro: spontaneous eye movement, non verbal Pulm: Tach collar placed, clear anteriorly Cv: s1 s2 rrr no mrg Abd: peg tube CDI, soft, +BS Ext: LUE edema +1, no lower ext edema, warm to touch, non purposeful movement of RUE CBCD WBC 9.9 K/mm3 (4.0-10.0) 09/29/15 07:00 RBC 3.32 M/mm3 (4.00-5.60) L 09/29/15 07:00 Hgb 9.4 GM/dL (11.7-16.9) L 09/29/15 07:00 Hct 28.7 % (35.4-49) L 09/29/15 07:00 MCV 86.5 fl (80-96) 09/29/15 07:00 MCHC 32.9 g/dl (32.0-35.9) 09/29/15 07:00 RDW 15.9 % (11.9-15.9) 09/29/15 07:00 Plt Count 345 K/MM3 (134-434) 09/29/15 07:00 MPV 7.2 fl (7.5-11.1) L 09/29/15 07:00 CMP Sodium 138 mmol/L (136-145) 09/29/15 08:30 Potassium 3.4 mmol/L (3.5-5.1) L 09/29/15 08:30 Chloride 99 mmol/L (98-107) 09/29/15 08:30 Carbon Dioxide 32 mmol/L (21-32) 09/29/15 08:30 Anion Gap 7 (8-16) L 09/29/15 08:30 BUN 17 mg/dL (7-18) 09/29/15 08:30 Creatinine 0.6 mg/dL (0.7-1.3) L 09/29/15 08:30 Creat Clearance w eGFR > 60 (>60) 09/29/15 08:30 Random Glucose 161 mg/dL (74-106) H 09/29/15 08:30 Calcium 9.6 mg/dL (8.5-10.1) 09/29/15 08:30 Total Bilirubin 0.2 mg/dL (0.2-1.0) 09/29/15 08:30 AST 31 U/L (15-37) D 09/29/15 08:30 ALT 82 U/L (12-78) H D 09/29/15 08:30 Alkaline Phosphatase 99 U/L (45-117) 09/29/15 08:30 Total Protein 7.3 g/dl (6.4-8.2) 09/29/15 08:30 Albumin 3.0 g/dl (3.4-5.0) L 09/29/15 08:30 CARDIAC ENZYMES Creatine Kinase 62 IU/L (38-174) 06/28/15 09:35 Troponin I 0.07 ng/ml (0.03-0.5) D 07/09/15 05:00 Assessment: 75 year old male with PMHx of HTN, IDDM, inguinal hernia who presented to the ED with diverticular bleed s/p Righ hemicolectomy with 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 Plan: 1. Anoxic brain injury s/p brainstem CVAs - Mental status unchanged 2. Respiratory failure secondary to anoxic brain injury - Cont trach collar - Albuterol neb PRN 3. HTN - Continue lisinopril, metoprolol, amlodipine 4. Multiple pressure ulcers - Stage III sacrum healing: Collagenase bid with Allevyn dressing - Stage II left ear healing: Silvadene - Turn and position q2h 5. IDDM - Levemir 28 units HS - ISS BGM ACHS 6. F/E/N: - Tube feeds: Vital 1.5 @60ml/hr - Hypokalemia: replete 7. Prophylaxis: - SCDs bilaterally - Lovenox CODE STATUS: DNR CODE STATUS: DNR
[2015-09-29] MEDS: INSULIN DETEMIR 100 UNITS/ML MDV SQ SCH (22:09)
[2015-09-30] MEDS: INSULIN (NOVOLOG) ASPART 100 UNITS/ML 10ML VIAL SQ SCH ×5 (00:25→22:59)
[2015-09-30 08:27] LABS: ALK PHOS 99 U/L (45-117); ANION GAP 8 (8-16); BILIRUBIN,TOTAL 0.2 mg/dL (0.2-1.0); CALCIUM 9.8 mg/dL (8.5-10.1); CO2 32 mmol/L (21-32); CREATININE 0.5 mg/dL (0.7-1.3); GLUCOSE,RANDOM 139 mg/dL (74-106); SGOT/AST 22 U/L (15-37); SGPT/ALT 63 U/L (12-78); TOT PROT 7.4 g/dl (6.4-8.2)
[2015-09-30] MEDS: AMINO ACIDS/PROTEIN HYDROLYS SUGAR-FREE 30 ML PACKET PO SCH ×2 (09:25→17:51)
[2015-09-30] MEDS: LISINOPRIL 20 MG TABLET (FP) GT SCH (09:25)
[2015-09-30] MEDS: ENOXAPARIN NA (PORCINE) 40 MG/0.4 ML DISP.SYRIN SQ SCH (09:26)
[2015-09-30] MEDS: amLODIPine BESYLATE 10 MG TABLET (FP) GT SCH (09:26)
[2015-09-30] MEDS: PANTOPRAZOLE SOD 40 MG SUSPENSION PACKET GT SCH (09:26)
[2015-09-30] MEDS: MULTIVITAMINS THERAPEUTIC GT SCH (09:34)
[2015-09-30] MEDS: METOPROLOL TARTRATE 100 MG, METOPROLOL TARTRATE 25 MG GT SCH ×2 (09:35→22:53)
[2015-09-30] MEDS: SILVER SULFADIAZINE 1% TOP CREAM 50 GM JAR TP SCH (12:31)
[2015-09-30] MEDS: COLLAGENASE CLOSTRIDIUM HIST. 30 GRAMS TUBE TP SCH (12:31)
--- NOTE | 2015-09-30 12:48 | PN ---
Progress Note (short form) - Note Progress Note: PULMONARY Doing well on trach collar. Last Vital Signs Temp Pulse Resp BP Pulse Ox 98.7 F 91 H 18 145/78 97 09/30/15 09:39 09/30/15 10:51 09/30/15 09:39 09/30/15 09:39 09/30/15 10:51 Gen: eyes open, breathing nonlabored Heart: RRR Lung: decreased breath sounds at the bases Abd: soft, nontender Ext: no edema CBC, BMP 09/29/15 07:00 09/30/15 06:50 Active Medications Acetaminophen (Tylenol Oral Solution -) 650 mg GT Q6H PRN PRN Reason: FEVER Last Admin: 09/20/15 23:03 Dose: 650 mg Amino Acids (Prostat Sugar-Free Packet -) 30 ml PO BID@0800,1730 [facility] Last Admin: 09/30/15 09:25 Dose: 30 ml Amlodipine Besylate (Norvasc -) 10 mg GT DAILY [facility] Last Admin: 09/30/15 09:26 Dose: 10 mg Collagenase (Santyl -) 1 applic TP DAILY [facility] Last Admin: 09/30/15 12:31 Dose: 1 applic Enoxaparin Sodium (Lovenox -) 40 mg SQ DAILY [facility] Last Admin: 09/30/15 09:26 Dose: 40 mg Ibuprofen (Motrin Oral Suspension -) 200 mg PO Q6H PRN PRN Reason: FEVER Insulin Aspart (Novolog Vial) 0 units SQ Q6HPO [facility] PRN Reason: Protocol Last Admin: 09/30/15 12:30 Dose: 2 units Insulin Detemir (Levemir Vial) 28 units SQ HS [facility] Last Admin: 09/29/15 22:09 Dose: 28 units Lisinopril (Prinivil -) 40 mg GT DAILY [facility] Last Admin: 09/30/15 09:25 Dose: 40 mg Metoprolol Tartrate (Lopressor Injection -) 5 mg IVPB Q6H PRN PRN Reason: HYPERTENSION Metoprolol Tartrate 100 mg/ (Metoprolol Tartrate 25 mg) 125 mg GT BID [facility] Last Admin: 09/30/15 09:35 Dose: 125 mg Multivitamins (Thera-Plus -) 5 ml GT DAILY [facility] Last Admin: 09/30/15 09:34 Dose: 5 ml Ondansetron HCl (Zofran Injection -) 4 mg IVPB Q6H PRN PRN Reason: NAUSEA Pantoprazole Sodium (Protonix Packets For Oral Suspension -) 40 mg GT DAILY [facility] Last Admin: 09/30/15 09:26 Dose: 40 mg Silver Sulfadiazine (Silvadene -) 1 applic TP DAILY [facility] Last Admin: 09/30/15 12:31 Dose: 1 applic A/P Acute Respiratory Failure s/p Tracheostomy Acute CVA/Anoxic Brain Injury Acute Lower Diverticular GI Bleed Acute Blood Loss Anemia s/p Pneumonia HTN DM CKD + C Diff Ag Fever - enteral feeds - DVT prophylaxis - aspiration precautions - trach collar as tolerated - does not need vent facility placement
--- NOTE | 2015-09-30 13:00 | PN ---
Progress Note (short form) - Note Progress Note: Subjective: Pt seen and examined at bedside. No acute changes overnight, resting comfortably. Current Medications Generic Name Dose Route Start Last Admin Trade Name Freq PRN Reason Stop Dose Admin Acetaminophen 650 mg 09/09/15 09:29 09/20/15 23:03 Tylenol Oral Solution - GT 650 mg Q6H PRN Administration FEVER Amino Acids 30 ml 09/15/15 17:30 09/29/15 09:00 Prostat Sugar-Free Packet - PO 30 ml BID@0800,1730 [facility] Administration Amlodipine Besylate 10 mg 09/09/15 10:00 09/29/15 10:42 Norvasc - GT 10 mg DAILY [facility] Administration Collagenase 1 applic 09/09/15 10:00 09/29/15 13:00 Santyl - TP Not Given DAILY [facility] Enoxaparin Sodium 40 mg 09/26/15 18:15 09/29/15 10:42 Lovenox - SQ 40 mg DAILY [facility] Administration Ibuprofen 200 mg 09/09/15 09:29 Motrin Oral Suspension - PO Q6H PRN FEVER Insulin Aspart 0 units 09/09/15 12:00 09/29/15 12:59 Novolog Vial SQ 2 units Q6HPO [facility] Administration Protocol Insulin Detemir 28 units 09/09/15 22:00 09/28/15 21:40 Levemir Vial SQ 28 units HS [facility] Administration Lisinopril 40 mg 09/09/15 10:00 09/29/15 10:42 Prinivil - GT 40 mg DAILY [facility] Administration Metoprolol Tartrate 5 mg 09/09/15 09:29 Lopressor Injection - IVPB Q6H PRN HYPERTENSION Metoprolol Tartrate 100 mg/ 125 mg 09/17/15 10:00 09/29/15 10:43 Metoprolol Tartrate 25 mg GT 125 mg BID [facility]U Administration Multivitamins 5 ml 09/09/15 10:00 09/29/15 10:43 Thera-Plus - GT 5 ml DAILY [facility] Administration Ondansetron HCl 4 mg 09/09/15 09:29 Zofran Injection - IVPB Q6H PRN NAUSEA Pantoprazole Sodium 40 mg 09/09/15 10:00 09/29/15 10:43 Protonix Packets For Oral Suspension - GT 40 mg DAILY [facility] Administration Silver Sulfadiazine 1 applic 09/09/15 10:00 09/29/15 13:03 Silvadene - TP Not Given DAILY [facility] Objective: Vital Signs Period Temp Pulse Resp BP Sys/Santiago Pulse Ox Last 24 Hr 97.6 F-99.0 F 88-95 18-20 133-150/70-83 97-99 Physical Exam: General: No acute distress Neuro: spontaneous eye movement, non verbal Pulm: Tach collar placed, clear anteriorly Cv: s1 s2 rrr no mrg Abd: peg tube CDI, soft, +BS Ext: LUE edema +1, no lower ext edema, warm to touch CBCD WBC 9.9 K/mm3 (4.0-10.0) 09/29/15 07:00 RBC 3.32 M/mm3 (4.00-5.60) L 09/29/15 07:00 Hgb 9.4 GM/dL (11.7-16.9) L 09/29/15 07:00 Hct 28.7 % (35.4-49) L 09/29/15 07:00 MCV 86.5 fl (80-96) 09/29/15 07:00 MCHC 32.9 g/dl (32.0-35.9) 09/29/15 07:00 RDW 15.9 % (11.9-15.9) 09/29/15 07:00 Plt Count 345 K/MM3 (134-434) 09/29/15 07:00 MPV 7.2 fl (7.5-11.1) L 09/29/15 07:00 CMP Sodium 139 mmol/L (136-145) 09/30/15 06:50 Potassium 3.7 mmol/L (3.5-5.1) 09/30/15 06:50 Chloride 99 mmol/L (98-107) 09/30/15 06:50 Carbon Dioxide 32 mmol/L (21-32) 09/30/15 06:50 Anion Gap 8 (8-16) 09/30/15 06:50 BUN 16 mg/dL (7-18) 09/30/15 06:50 Creatinine 0.5 mg/dL (0.7-1.3) L 09/30/15 06:50 Creat Clearance w eGFR > 60 (>60) 09/30/15 06:50 Random Glucose 139 mg/dL (74-106) H 09/30/15 06:50 Calcium 9.8 mg/dL (8.5-10.1) 09/30/15 06:50 Total Bilirubin 0.2 mg/dL (0.2-1.0) 09/30/15 06:50 AST 22 U/L (15-37) D 09/30/15 06:50 ALT 63 U/L (12-78) D 09/30/15 06:50 Alkaline Phosphatase 99 U/L (45-117) 09/30/15 06:50 Total Protein 7.4 g/dl (6.4-8.2) 09/30/15 06:50 Albumin 3.0 g/dl (3.4-5.0) L 09/30/15 06:50 CARDIAC ENZYMES Creatine Kinase 62 IU/L (38-174) 06/28/15 09:35 Troponin I 0.07 ng/ml (0.03-0.5) D 07/09/15 05:00 Assessment: 75 year old male with PMHx of HTN, IDDM, inguinal hernia who presented to the ED with diverticular bleed s/p Righ hemicolectomy with 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 Plan: 1. Anoxic brain injury s/p brainstem CVAs - Mental status unchanged 2. Respiratory failure secondary to anoxic brain injury - Cont trach collar - Will not need to be discharged to a vent facility - Albuterol neb PRN 3. HTN - Continue lisinopril, metoprolol, amlodipine 4. Multiple pressure ulcers - Stage III sacrum healing: Collagenase bid with Allevyn dressing - Stage II left ear healing: Silvadene - Turn and position q2h 5. IDDM - Levemir 28 units HS - ISS BGM ACHS 6. F/E/N: - Tube feeds: Vital 1.5 @60ml/hr - Hypokalemia: replete 7. Prophylaxis: - SCDs bilaterally - Lovenox CODE STATUS: DNR
[2015-09-30] MEDS: INSULIN DETEMIR 100 UNITS/ML MDV SQ SCH (22:58)
[2015-10-01] MEDS: ACETAMINOPHEN 650 MG/20.3 ML ORAL SOLUTION (CUPS) GT PRN (03:14)
[2015-10-01] MEDS: INSULIN (NOVOLOG) ASPART 100 UNITS/ML 10ML VIAL SQ SCH ×4 (06:38→23:17)
[2015-10-01] MEDS: AMINO ACIDS/PROTEIN HYDROLYS SUGAR-FREE 30 ML PACKET PO SCH ×2 (08:30→18:08)
[2015-10-01] MEDS: amLODIPine BESYLATE 10 MG TABLET (FP) GT SCH (10:00)
[2015-10-01] MEDS: LISINOPRIL 20 MG TABLET (FP) GT SCH (10:00)
[2015-10-01] MEDS: PANTOPRAZOLE SOD 40 MG SUSPENSION PACKET GT SCH (10:00)
[2015-10-01] MEDS: MULTIVITAMINS THERAPEUTIC GT SCH (10:00)
[2015-10-01] MEDS: METOPROLOL TARTRATE 100 MG, METOPROLOL TARTRATE 25 MG GT SCH ×2 (10:00→23:18)
[2015-10-01] MEDS: ENOXAPARIN NA (PORCINE) 40 MG/0.4 ML DISP.SYRIN SQ SCH (10:00)
[2015-10-01] MEDS: SILVER SULFADIAZINE 1% TOP CREAM 50 GM JAR TP SCH (11:45)
[2015-10-01] MEDS: COLLAGENASE CLOSTRIDIUM HIST. 30 GRAMS TUBE TP SCH (11:45)
--- NOTE | 2015-10-01 14:20 | PN ---
Progress Note (short form) - Note Progress Note: Subjective: Pt seen and examined at bedside. Resting comfortably, no acute changes. Objective: Last Vital Signs Temp Pulse Resp BP Pulse Ox 99.1 F 108 H 20 149/56 95 10/01/15 10:00 10/01/15 12:20 10/01/15 10:00 10/01/15 10:00 10/01/15 12:20 PE: General: No acute distress Neuro: spontaneous eye movement, non verbal Pulm: Tach collar placed, clear anteriorly Cv: s1 s2 rrr no mrg Abd: peg tube CDI, soft, +BS Ext: LUE edema +1, no lower ext edema, warm to touch, non purposeful movement of RUE Current Medications Generic Name Dose Route Start Last Admin Trade Name Freq PRN Reason Stop Dose Admin Acetaminophen 650 mg 09/09/15 09:29 10/01/15 03:14 Tylenol Oral Solution - GT 650 mg Q6H PRN Administration FEVER Amino Acids 30 ml 09/15/15 17:30 10/01/15 08:30 Prostat Sugar-Free Packet - PO 30 ml BID@0800,1730 [facility] Administration Amlodipine Besylate 10 mg 09/09/15 10:00 10/01/15 10:00 Norvasc - GT 10 mg DAILY [facility] Administration Collagenase 1 applic 09/09/15 10:00 10/01/15 11:45 Santyl - TP 1 applic DAILY [facility] Administration Enoxaparin Sodium 40 mg 09/26/15 18:15 10/01/15 10:00 Lovenox - SQ 40 mg DAILY [facility] Administration Ibuprofen 200 mg 09/09/15 09:29 Motrin Oral Suspension - PO Q6H PRN FEVER Insulin Aspart 0 units 09/09/15 12:00 10/01/15 13:31 Novolog Vial SQ Not Given Q6HPO [facility] Protocol Insulin Detemir 28 units 09/09/15 22:00 09/30/15 22:58 Levemir Vial SQ 28 units HS [facility] Administration Lisinopril 40 mg 09/09/15 10:00 10/01/15 10:00 Prinivil - GT 40 mg DAILY [facility] Administration Metoprolol Tartrate 5 mg 09/09/15 09:29 Lopressor Injection - IVPB Q6H PRN HYPERTENSION Metoprolol Tartrate 100 mg/ 125 mg 09/17/15 10:00 10/01/15 10:00 Metoprolol Tartrate 25 mg GT 125 mg BID [facility] Administration Multivitamins 5 ml 09/09/15 10:00 10/01/15 10:00 Thera-Plus - GT 5 ml DAILY [facility] Administration Ondansetron HCl 4 mg 09/09/15 09:29 Zofran Injection - IVPB Q6H PRN NAUSEA Pantoprazole Sodium 40 mg 09/09/15 10:00 10/01/15 10:00 Protonix Packets For Oral Suspension - GT 40 mg DAILY [facility] Administration Silver Sulfadiazine 1 applic 09/09/15 10:00 10/01/15 11:45 Silvadene - TP 1 applic DAILY [facility] Administration Assessment: 75 year old male with PMHx of HTN, IDDM, inguinal hernia who presented to the ED with diverticular bleed s/p Righ hemicolectomy with 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 Plan: 1. Anoxic brain injury s/p brainstem CVAs - Mental status unchanged 2. Respiratory failure secondary to anoxic brain injury - Cont trach collar - Albuterol neb PRN 3. HTN - Continue lisinopril, metoprolol, amlodipine 4. Multiple pressure ulcers - Stage III sacrum healing: Collagenase bid with Allevyn dressing - Stage II left ear healing: Silvadene - Turn and position q2h 5. IDDM - Levemir 28 units HS - ISS BGM ACHS 6. F/E/N: - Tube feeds: Vital 1.5 @60ml/hr 7. Prophylaxis: - SCDs bilaterally - Lovenox CODE STATUS: DNR
[2015-10-01] MEDS: INSULIN DETEMIR 100 UNITS/ML MDV SQ SCH (23:17)
[2015-10-02] MEDS: INSULIN (NOVOLOG) ASPART 100 UNITS/ML 10ML VIAL SQ SCH ×3 (05:59→18:01)
[2015-10-02] MEDS: ACETAMINOPHEN 650 MG/20.3 ML ORAL SOLUTION (CUPS) GT PRN (07:06)
--- NOTE | 2015-10-02 08:43 | PN ---
Progress Note (short form) - Note Progress Note: Subjective: Pt seen and examined at bedside. Low grade temp overnight, tylenol given. Currently, resting comfortable. TC 40% Objective: Last Vital Signs Temp Pulse Resp BP Pulse Ox 100.2 F H 104 H 20 140/92 98 10/02/15 07:05 10/02/15 07:05 10/02/15 07:05 10/02/15 07:05 10/02/15 06:56 PE: General: No acute distress Neuro: spontaneous eye movement, non verbal Pulm: Tach collar placed, clear anteriorly Cv: s1 s2 rrr no mrg Abd: peg tube CDI, soft, +BS Ext: LUE edema+1, no lower ext edema, warm to touch +2 DP pulses, non purposeful movement of RUE Current Medications Generic Name Dose Route Start Last Admin Trade Name Freq PRN Reason Stop Dose Admin Acetaminophen 650 mg 09/09/15 09:29 10/02/15 07:06 Tylenol Oral Solution - GT 650 mg Q6H PRN Administration FEVER Amino Acids 30 ml 09/15/15 17:30 10/01/15 18:08 Prostat Sugar-Free Packet - PO 30 ml BID@0800,1730 [facility] Administration Amlodipine Besylate 10 mg 09/09/15 10:00 10/01/15 10:00 Norvasc - GT 10 mg DAILY [facility] Administration Collagenase 1 applic 09/09/15 10:00 10/01/15 11:45 Santyl - TP 1 applic DAILY [facility] Administration Enoxaparin Sodium 40 mg 09/26/15 18:15 10/01/15 10:00 Lovenox - SQ 40 mg DAILY [facility] Administration Ibuprofen 200 mg 09/09/15 09:29 Motrin Oral Suspension - PO Q6H PRN FEVER Insulin Aspart 0 units 09/09/15 12:00 10/02/15 05:59 Novolog Vial SQ 2 units Q6HPO [facility] Administration Protocol Insulin Detemir 28 units 09/09/15 22:00 10/01/15 23:17 Levemir Vial SQ 28 units HS [facility] Administration Lisinopril 40 mg 09/09/15 10:00 10/01/15 10:00 Prinivil - GT 40 mg DAILY [facility] Administration Metoprolol Tartrate 5 mg 09/09/15 09:29 Lopressor Injection - IVPB Q6H PRN HYPERTENSION Metoprolol Tartrate 100 mg/ 125 mg 09/17/15 10:00 10/01/15 23:18 Metoprolol Tartrate 25 mg GT 125 mg BID [facility] Administration Multivitamins 5 ml 09/09/15 10:00 10/01/15 10:00 Thera-Plus - GT 5 ml DAILY [facility] Administration Ondansetron HCl 4 mg 09/09/15 09:29 Zofran Injection - IVPB Q6H PRN NAUSEA Pantoprazole Sodium 40 mg 09/09/15 10:00 10/01/15 10:00 Protonix Packets For Oral Suspension - GT 40 mg DAILY [facility] Administration Silver Sulfadiazine 1 applic 09/09/15 10:00 10/01/15 11:45 Silvadene - TP 1 applic DAILY [facility] Administration Assessment: 75 year old male with PMHx of HTN, IDDM, inguinal hernia who presented to the ED with diverticular bleed s/p Righ hemicolectomy with 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 Plan: 1. Anoxic brain injury s/p brainstem CVAs - Mental status unchanged 2. Respiratory failure secondary to anoxic brain injury - Cont trach collar - Albuterol neb PRN 3. HTN - Continue lisinopril, metoprolol, amlodipine 4. Multiple pressure ulcers - Stage III sacrum healing: Collagenase bid with Allevyn dressing - Stage II left ear healing: Silvadene - Turn and position q2h 5. IDDM - Levemir 28 units HS - ISS BGM ACHS 6. F/E/N: - Tube feeds: Vital 1.5 @60ml/hr 7. Prophylaxis: - SCDs bilaterally - Lovenox CODE STATUS: DNR
[2015-10-02] MEDS: AMINO ACIDS/PROTEIN HYDROLYS SUGAR-FREE 30 ML PACKET PO SCH ×2 (08:53→17:58)
[2015-10-02] MEDS: METOPROLOL TARTRATE 100 MG, METOPROLOL TARTRATE 25 MG GT SCH ×2 (09:43→22:06)
[2015-10-02] MEDS: LISINOPRIL 20 MG TABLET (FP) GT SCH (09:43)
[2015-10-02] MEDS: amLODIPine BESYLATE 10 MG TABLET (FP) GT SCH (09:43)
[2015-10-02] MEDS: PANTOPRAZOLE SOD 40 MG SUSPENSION PACKET GT SCH (09:43)
[2015-10-02] MEDS: MULTIVITAMINS THERAPEUTIC GT SCH (09:44)
[2015-10-02] MEDS: ENOXAPARIN NA (PORCINE) 40 MG/0.4 ML DISP.SYRIN SQ SCH (09:44)
[2015-10-02] MEDS: COLLAGENASE CLOSTRIDIUM HIST. 30 GRAMS TUBE TP SCH (11:43)
[2015-10-02] MEDS: SILVER SULFADIAZINE 1% TOP CREAM 50 GM JAR TP SCH (11:44)
[2015-10-02] MEDS: INSULIN DETEMIR 100 UNITS/ML MDV SQ SCH (22:06)
[2015-10-03] MEDS: INSULIN (NOVOLOG) ASPART 100 UNITS/ML 10ML VIAL SQ SCH ×5 (00:42→23:01)
--- NOTE | 2015-10-03 08:55 | PN ---
Progress Note (short form) - Note Progress Note: Subjective: Pt seen and examined at bedside. He appears comfortable. Objective: Last Vital Signs Temp Pulse Resp BP Pulse Ox 97.4 F L 93 H 18 142/87 99 10/03/15 06:05 10/03/15 06:05 10/03/15 06:05 10/03/15 06:05 10/02/15 21:00 PE: General: No acute distress Neuro: spontaneous eye movement, non verbal Pulm: Tach collar 40%, scattered ronchi anteriorly Cv: s1 s2 rrr no mrg Abd: peg tube CDI, soft, +BS Ext: LUE edema+1, no lower ext edema, warm to touch +2 DP pulses, non purposeful movement of RUE Current Medications Generic Name Dose Route Start Last Admin Trade Name Freq PRN Reason Stop Dose Admin Acetaminophen 650 mg 09/09/15 09:29 10/02/15 07:06 Tylenol Oral Solution - GT 650 mg Q6H PRN Administration FEVER Albuterol Sulfate 1 amp 10/02/15 18:41 Ventolin 0.083% Nebulizer Soln - NEB Q4H PRN SHORT OF BREATH/WHEEZING Amino Acids 30 ml 09/15/15 17:30 10/02/15 17:58 Prostat Sugar-Free Packet - PO 30 ml BID@0800,1730 KWAKU Administration Amlodipine Besylate 10 mg 09/09/15 10:00 10/02/15 09:43 Norvasc - GT 10 mg DAILY KWAKU Administration Collagenase 1 applic 09/09/15 10:00 10/02/15 11:43 Santyl - TP 1 applic DAILY KWAKU Administration Enoxaparin Sodium 40 mg 09/26/15 18:15 10/02/15 09:44 Lovenox - SQ 40 mg DAILY KWAKU Administration Ibuprofen 200 mg 09/09/15 09:29 Motrin Oral Suspension - PO Q6H PRN FEVER Insulin Aspart 0 units 09/09/15 12:00 10/03/15 05:26 Novolog Vial SQ 2 units Q6HPO KWAKU Administration Protocol Insulin Detemir 28 units 09/09/15 22:00 10/02/15 22:06 Levemir Vial SQ 28 units HS KWAKU Administration Lisinopril 40 mg 09/09/15 10:00 10/02/15 09:43 Prinivil - GT 40 mg DAILY KWAKU Administration Metoprolol Tartrate 5 mg 09/09/15 09:29 Lopressor Injection - IVPB Q6H PRN HYPERTENSION Metoprolol Tartrate 100 mg/ 125 mg 09/17/15 10:00 10/02/15 22:06 Metoprolol Tartrate 25 mg GT 125 mg BID KWAKU Administration Multivitamins 5 ml 09/09/15 10:00 10/02/15 09:44 Thera-Plus - GT 5 ml DAILY KWAKU Administration Ondansetron HCl 4 mg 09/09/15 09:29 Zofran Injection - IVPB Q6H PRN NAUSEA Pantoprazole Sodium 40 mg 09/09/15 10:00 10/02/15 09:43 Protonix Packets For Oral Suspension - GT 40 mg DAILY KWAKU Administration Silver Sulfadiazine 1 applic 09/09/15 10:00 10/02/15 11:44 Silvadene - TP 1 applic DAILY KWAKU Administration Assessment: 75 year old male with PMHx of HTN, IDDM, inguinal hernia who presented to the ED with diverticular bleed s/p Right hemicolectomy with 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 Plan: 1. Anoxic brain injury s/p brainstem CVAs - Mental status unchanged 2. Respiratory failure secondary to anoxic brain injury - Trach collar - Albuterol neb PRN 3. HTN - Lisinopril/Metoprolol/Amlodipine 4. Multiple pressure ulcers - Stage III sacrum healing: Collagenase bid with Allevyn dressing - Stage II left ear healing: Silvadene - Turn and position q2h 5. IDDM - Levemir 28 units HS - ISS BGM ACHS 6. F/E/N: - Tube feeds: Vital 1.5 @60ml/hr 7. Prophylaxis: - SCDs bilaterally - Lovenox CODE STATUS: DNR
[2015-10-03] MEDS: amLODIPine BESYLATE 10 MG TABLET (FP) GT SCH (10:57)
[2015-10-03] MEDS: AMINO ACIDS/PROTEIN HYDROLYS SUGAR-FREE 30 ML PACKET PO SCH ×2 (10:57→17:10)
[2015-10-03] MEDS: LISINOPRIL 20 MG TABLET (FP) GT SCH (10:57)
[2015-10-03] MEDS: PANTOPRAZOLE SOD 40 MG SUSPENSION PACKET GT SCH (10:58)
[2015-10-03] MEDS: ENOXAPARIN NA (PORCINE) 40 MG/0.4 ML DISP.SYRIN SQ SCH (10:58)
[2015-10-03] MEDS: METOPROLOL TARTRATE 100 MG, METOPROLOL TARTRATE 25 MG GT SCH ×2 (10:58→23:01)
[2015-10-03] MEDS: MULTIVITAMINS THERAPEUTIC GT SCH (10:59)
[2015-10-03] MEDS: SILVER SULFADIAZINE 1% TOP CREAM 50 GM JAR TP SCH (11:54)
[2015-10-03] MEDS: COLLAGENASE CLOSTRIDIUM HIST. 30 GRAMS TUBE TP SCH (11:55)
[2015-10-03] MEDS: INSULIN DETEMIR 100 UNITS/ML MDV SQ SCH (23:00)
[2015-10-04] MEDS: INSULIN (NOVOLOG) ASPART 100 UNITS/ML 10ML VIAL SQ SCH ×4 (06:28→23:01)
--- NOTE | 2015-10-04 08:07 | PN ---
Progress Note (short form) - Note Progress Note: Subjective: Pt seen and examined at bedside. He is resting comfortably. Objective: Last Vital Signs Temp Pulse Resp BP Pulse Ox 98.8 F 96 H 20 153/95 97 10/04/15 05:59 10/04/15 06:20 10/04/15 05:59 10/04/15 05:59 10/04/15 06:20 PE: General: No acute distress Neuro: spontaneous eye movement, non verbal Pulm: Tach collar 35%, scattered ronchi anteriorly Cv: s1 s2 rrr no mrg Abd: peg tube CDI, soft, +BS Ext: LUE edema+1, no lower ext edema, warm, non purposeful movement of RUE Current Medications Generic Name Dose Route Start Last Admin Trade Name Freq PRN Reason Stop Dose Admin Acetaminophen 650 mg 09/09/15 09:29 10/02/15 07:06 Tylenol Oral Solution - GT 650 mg Q6H PRN Administration FEVER Albuterol Sulfate 1 amp 10/02/15 18:41 Ventolin 0.083% Nebulizer Soln - NEB Q4H PRN SHORT OF BREATH/WHEEZING Amino Acids 30 ml 09/15/15 17:30 10/03/15 17:10 Prostat Sugar-Free Packet - PO 30 ml BID@0800,1730 KWAKU Administration Amlodipine Besylate 10 mg 09/09/15 10:00 10/03/15 10:57 Norvasc - GT 10 mg DAILY KWAKU Administration Collagenase 1 applic 09/09/15 10:00 10/03/15 11:55 Santyl - TP 1 applic DAILY KWAKU Administration Enoxaparin Sodium 40 mg 09/26/15 18:15 10/03/15 10:58 Lovenox - SQ 40 mg DAILY KWAKU Administration Ibuprofen 200 mg 09/09/15 09:29 Motrin Oral Suspension - PO Q6H PRN FEVER Insulin Aspart 0 units 09/09/15 12:00 10/04/15 06:28 Novolog Vial SQ 2 units Q6HPO KWAKU Administration Protocol Insulin Detemir 28 units 09/09/15 22:00 10/03/15 23:00 Levemir Vial SQ 28 units HS KWAKU Administration Lisinopril 40 mg 09/09/15 10:00 10/03/15 10:57 Prinivil - GT 40 mg DAILY KWAKU Administration Metoprolol Tartrate 5 mg 09/09/15 09:29 Lopressor Injection - IVPB Q6H PRN HYPERTENSION Metoprolol Tartrate 100 mg/ 125 mg 09/17/15 10:00 10/03/15 23:01 Metoprolol Tartrate 25 mg GT 125 mg BID KWAKU Administration Multivitamins 5 ml 09/09/15 10:00 10/03/15 10:59 Thera-Plus - GT 5 ml DAILY KWAKU Administration Ondansetron HCl 4 mg 09/09/15 09:29 Zofran Injection - IVPB Q6H PRN NAUSEA Pantoprazole Sodium 40 mg 09/09/15 10:00 10/03/15 10:58 Protonix Packets For Oral Suspension - GT 40 mg DAILY KWAKU Administration Silver Sulfadiazine 1 applic 09/09/15 10:00 10/03/15 11:54 Silvadene - TP 1 applic DAILY KWAKU Administration Assessment: 75 year old male with PMHx of HTN, IDDM, inguinal hernia who presented to the ED with diverticular bleed s/p Right hemicolectomy with 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 Plan: 1. Anoxic brain injury s/p brainstem CVAs - Mental status unchanged 2. Respiratory failure secondary to anoxic brain injury - Trach collar - Albuterol neb PRN 3. HTN - Lisinopril/Metoprolol/Amlodipine 4. Multiple pressure ulcers - Stage III sacrum healing: Collagenase bid with Allevyn dressing - Stage II left ear healing: Silvadene - Turn and position q2h 5. IDDM - Levemir 28 units HS - ISS BGM ACHS 6. F/E/N: - Tube feeds: Vital 1.5 @60ml/hr 7. Prophylaxis: - SCDs bilaterally - Lovenox CODE STATUS: DNR
[2015-10-04] MEDS: AMINO ACIDS/PROTEIN HYDROLYS SUGAR-FREE 30 ML PACKET PO SCH ×2 (09:30→18:00)
[2015-10-04] MEDS: amLODIPine BESYLATE 10 MG TABLET (FP) GT SCH (11:31)
[2015-10-04] MEDS: ENOXAPARIN NA (PORCINE) 40 MG/0.4 ML DISP.SYRIN SQ SCH (11:31)
[2015-10-04] MEDS: LISINOPRIL 20 MG TABLET (FP) GT SCH (11:31)
[2015-10-04] MEDS: METOPROLOL TARTRATE 100 MG, METOPROLOL TARTRATE 25 MG GT SCH ×2 (11:32→22:46)
[2015-10-04] MEDS: PANTOPRAZOLE SOD 40 MG SUSPENSION PACKET GT SCH (11:33)
[2015-10-04] MEDS: MULTIVITAMINS THERAPEUTIC GT SCH (11:34)
[2015-10-04] MEDS: COLLAGENASE CLOSTRIDIUM HIST. 30 GRAMS TUBE TP SCH (14:00)
[2015-10-04] MEDS: SILVER SULFADIAZINE 1% TOP CREAM 50 GM JAR TP SCH (14:00)
[2015-10-04] MEDS: INSULIN DETEMIR 100 UNITS/ML MDV SQ SCH (22:45)
[2015-10-05] MEDS: INSULIN (NOVOLOG) ASPART 100 UNITS/ML 10ML VIAL SQ SCH ×3 (05:58→17:57)
[2015-10-05] MEDS: AMINO ACIDS/PROTEIN HYDROLYS SUGAR-FREE 30 ML PACKET PO SCH ×2 (10:03→17:57)
[2015-10-05] MEDS: ENOXAPARIN NA (PORCINE) 40 MG/0.4 ML DISP.SYRIN SQ SCH (10:03)
[2015-10-05] MEDS: LISINOPRIL 20 MG TABLET (FP) GT SCH (10:03)
[2015-10-05] MEDS: METOPROLOL TARTRATE 100 MG, METOPROLOL TARTRATE 25 MG GT SCH ×2 (10:04→21:38)
[2015-10-05] MEDS: PANTOPRAZOLE SOD 40 MG SUSPENSION PACKET GT SCH (10:04)
[2015-10-05] MEDS: amLODIPine BESYLATE 10 MG TABLET (FP) GT SCH (10:04)
[2015-10-05] MEDS: MULTIVITAMINS THERAPEUTIC GT SCH (10:05)
[2015-10-05] MEDS: COLLAGENASE CLOSTRIDIUM HIST. 30 GRAMS TUBE TP SCH (11:51)
[2015-10-05] MEDS: SILVER SULFADIAZINE 1% TOP CREAM 50 GM JAR TP SCH (11:51)
--- NOTE | 2015-10-05 12:42 | PN ---
Progress Note (short form) - Note Progress Note: Subjective: Pt seen and examined at bedside. No events overnight. Per RN patient coughs copious amounts of sputum up himself. Objective: Last Vital Signs Temp Pulse Resp BP Pulse Ox 100.3 F H 88 22 150/83 98 10/05/15 10:00 10/05/15 10:01 10/05/15 10:00 10/05/15 10:00 10/05/15 10:01 PE: General: No acute distress Neuro: spontaneous eye movement, non verbal Pulm: Tach collar 35%, scattered ronchi anteriorly Cv: s1 s2 rrr no mrg Abd: peg tube CDI, soft, +BS Ext: LUE edema+1, no lower ext edema, warm, non purposeful movement of RUE Current Medications Generic Name Dose Route Start Last Admin Trade Name Freq PRN Reason Stop Dose Admin Acetaminophen 650 mg 09/09/15 09:29 10/02/15 07:06 Tylenol Oral Solution - GT 650 mg Q6H PRN Administration FEVER Albuterol Sulfate 1 amp 10/02/15 18:41 Ventolin 0.083% Nebulizer Soln - NEB Q4H PRN SHORT OF BREATH/WHEEZING Amino Acids 30 ml 09/15/15 17:30 10/05/15 10:03 Prostat Sugar-Free Packet - PO 30 ml BID@0800,1730 KWAKU Administration Amlodipine Besylate 10 mg 09/09/15 10:00 10/05/15 10:04 Norvasc - GT 10 mg DAILY KWAKU Administration Collagenase 1 applic 09/09/15 10:00 10/05/15 11:51 Santyl - TP 1 applic DAILY KWAKU Administration Enoxaparin Sodium 40 mg 09/26/15 18:15 10/05/15 10:03 Lovenox - SQ 40 mg DAILY KWAKU Administration Ibuprofen 200 mg 09/09/15 09:29 Motrin Oral Suspension - PO Q6H PRN FEVER Insulin Aspart 0 units 09/09/15 12:00 10/05/15 11:52 Novolog Vial SQ Not Given Q6HPO [facility] Protocol Insulin Detemir 28 units 09/09/15 22:00 10/04/15 22:45 Levemir Vial SQ 28 units HS KWAKU Administration Lisinopril 40 mg 09/09/15 10:00 10/05/15 10:03 Prinivil - GT 40 mg DAILY KWAKU Administration Metoprolol Tartrate 5 mg 09/09/15 09:29 Lopressor Injection - IVPB Q6H PRN HYPERTENSION Metoprolol Tartrate 100 mg/ 125 mg 09/17/15 10:00 10/05/15 10:04 Metoprolol Tartrate 25 mg GT 125 mg BID KWAKU Administration Multivitamins 5 ml 09/09/15 10:00 10/05/15 10:05 Thera-Plus - GT 5 ml DAILY KWAKU Administration Ondansetron HCl 4 mg 09/09/15 09:29 Zofran Injection - IVPB Q6H PRN NAUSEA Pantoprazole Sodium 40 mg 09/09/15 10:00 10/05/15 10:04 Protonix Packets For Oral Suspension - GT 40 mg DAILY KWAKU Administration Silver Sulfadiazine 1 applic 09/09/15 10:00 10/05/15 11:51 Silvadene - TP 1 applic DAILY KWAKU Administration Assessment: 75 year old male with PMHx of HTN, IDDM, inguinal hernia who presented to the ED with diverticular bleed s/p Right hemicolectomy with 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 Plan: 1. Anoxic brain injury s/p brainstem CVAs - Mental status unchanged 2. Respiratory failure secondary to anoxic brain injury - Trach collar - Albuterol neb PRN 3. HTN - Lisinopril/Metoprolol/Amlodipine 4. Multiple pressure ulcers - Stage III sacrum healing: Collagenase bid with Allevyn dressing - Stage II left ear healing: Silvadene - Turn and position q2h 5. IDDM - Levemir 28 units HS - ISS BGM ACHS 6. F/E/N: - Tube feeds: Vital 1.5 @60ml/hr 7. Prophylaxis: - SCDs bilaterally - Lovenox CODE STATUS: DNR
[2015-10-05] MEDS: INSULIN DETEMIR 100 UNITS/ML MDV SQ SCH (21:38)
[2015-10-06] MEDS: INSULIN (NOVOLOG) ASPART 100 UNITS/ML 10ML VIAL SQ SCH ×4 (00:30→17:42)
[2015-10-06 09:17] LABS: BASOPHIL 1.3 % (0-2.0); EOSINOPHIL 3.7 % (0-4.5); MCH 27.8 pg (25.7-33.7); MCHC 32.2 g/dl (32.0-35.9); MEAN CELL VOLUME 86.3 fl (80-96); MEAN PLT VOLUME 7.9 fl (7.5-11.1); NEUTROPHILS 73.7 % (42.8-82.8); PLATELET COUNT 321 K/MM3 (134-434); RDW 16.2 % (11.9-15.9); WHITE BLOOD COUNT 11.6 K/mm3 (4.0-10.0)
[2015-10-06] MEDS: LISINOPRIL 20 MG TABLET (FP) GT SCH (09:38)
[2015-10-06] MEDS: amLODIPine BESYLATE 10 MG TABLET (FP) GT SCH (09:38)
[2015-10-06] MEDS: MULTIVITAMINS THERAPEUTIC GT SCH (09:38)
[2015-10-06] MEDS: PANTOPRAZOLE SOD 40 MG SUSPENSION PACKET GT SCH (09:39)
[2015-10-06] MEDS: AMINO ACIDS/PROTEIN HYDROLYS SUGAR-FREE 30 ML PACKET PO SCH ×2 (09:40→17:42)
[2015-10-06] MEDS: METOPROLOL TARTRATE 100 MG, METOPROLOL TARTRATE 25 MG GT SCH ×2 (09:40→21:49)
[2015-10-06] MEDS: ENOXAPARIN NA (PORCINE) 40 MG/0.4 ML DISP.SYRIN SQ SCH (09:41)
[2015-10-06 09:49] LABS: ALBUMIN 2.9 g/dl (3.4-5.0); ANION GAP 8 (8-16); CALCIUM 9.5 mg/dL (8.5-10.1); CO2 32 mmol/L (21-32); CREATININE 0.6 mg/dL (0.7-1.3); GLUCOSE,RANDOM 148 mg/dL (74-106); SGOT/AST 14 U/L (15-37); SGPT/ALT 27 U/L (12-78)
[2015-10-06 09:51] LABS: ALK PHOS 94 U/L (45-117); BILIRUBIN,TOTAL 0.2 mg/dL (0.2-1.0); TOT PROT 7.1 g/dl (6.4-8.2)
[2015-10-06] MEDS: SILVER SULFADIAZINE 1% TOP CREAM 50 GM JAR TP SCH (10:00)
[2015-10-06] MEDS: COLLAGENASE CLOSTRIDIUM HIST. 30 GRAMS TUBE TP SCH (10:00)
--- NOTE | 2015-10-06 10:09 | PN ---
Progress Note (short form) - Note Progress Note: Subjective: Pt seen and examined at bedside. He is sleeping, non responsive to verbal stimuli. He appears comfortable. Objective: Last Vital Signs Temp Pulse Resp BP Pulse Ox 97.5 F L 101 H 20 129/81 100 10/06/15 06:00 10/06/15 06:00 10/06/15 06:00 10/06/15 06:00 10/05/15 21:00 PE: General: No acute distress Neuro: spontaneous eye movement, non verbal Pulm: Tach collar 35%, scattered ronchi anteriorly, + secretions Cv: s1 s2 rrr no mrg Abd: peg tube CDI, soft, +BS Ext: LUE edema+1, no lower ext edema, warm, non purposeful movement of RUE CBCD WBC 11.6 K/mm3 (4.0-10.0) H 10/06/15 08:30 RBC 3.10 M/mm3 (4.00-5.60) L 10/06/15 08:30 Hgb 8.6 GM/dL (11.7-16.9) L 10/06/15 08:30 Hct 26.7 % (35.4-49) L 10/06/15 08:30 MCV 86.3 fl (80-96) 10/06/15 08:30 MCHC 32.2 g/dl (32.0-35.9) 10/06/15 08:30 RDW 16.2 % (11.9-15.9) H 10/06/15 08:30 Plt Count 321 K/MM3 (134-434) 10/06/15 08:30 MPV 7.9 fl (7.5-11.1) 10/06/15 08:30 CMP Sodium 140 mmol/L (136-145) 10/06/15 08:30 Potassium 3.7 mmol/L (3.5-5.1) 10/06/15 08:30 Chloride 100 mmol/L (98-107) 10/06/15 08:30 Carbon Dioxide 32 mmol/L (21-32) 10/06/15 08:30 Anion Gap 8 (8-16) 10/06/15 08:30 BUN 18 mg/dL (7-18) 10/06/15 08:30 Creatinine 0.6 mg/dL (0.7-1.3) L 10/06/15 08:30 Creat Clearance w eGFR > 60 (>60) 10/06/15 08:30 Calcium 9.5 mg/dL (8.5-10.1) 10/06/15 08:30 Total Bilirubin 0.2 mg/dL (0.2-1.0) 10/06/15 08:30 AST 14 U/L (15-37) L D 10/06/15 08:30 ALT 27 U/L (12-78) D 10/06/15 08:30 Alkaline Phosphatase 94 U/L (45-117) 10/06/15 08:30 Total Protein 7.1 g/dl (6.4-8.2) 10/06/15 08:30 Albumin 2.9 g/dl (3.4-5.0) L 10/06/15 08:30 Current Medications Generic Name Dose Route Start Last Admin Trade Name Freq PRN Reason Stop Dose Admin Acetaminophen 650 mg 09/09/15 09:29 10/02/15 07:06 Tylenol Oral Solution - GT 650 mg Q6H PRN Administration FEVER Albuterol Sulfate 1 amp 10/02/15 18:41 Ventolin 0.083% Nebulizer Soln - NEB Q4H PRN SHORT OF BREATH/WHEEZING Amino Acids 30 ml 09/15/15 17:30 10/06/15 09:40 Prostat Sugar-Free Packet - PO 30 ml BID@0800,1730 KWAKU Administration Amlodipine Besylate 10 mg 09/09/15 10:00 10/06/15 09:38 Norvasc - GT 10 mg DAILY KWAKU Administration Collagenase 1 applic 09/09/15 10:00 10/05/15 11:51 Santyl - TP 1 applic DAILY KWAKU Administration Enoxaparin Sodium 40 mg 09/26/15 18:15 10/06/15 09:41 Lovenox - SQ 40 mg DAILY KWAKU Administration Ibuprofen 200 mg 09/09/15 09:29 Motrin Oral Suspension - PO Q6H PRN FEVER Insulin Aspart 0 units 09/09/15 12:00 10/06/15 06:44 Novolog Vial SQ Not Given Q6HPO [facility] Protocol Insulin Detemir 28 units 09/09/15 22:00 10/05/15 21:38 Levemir Vial SQ 28 units HS KWAKU Administration Lisinopril 40 mg 09/09/15 10:00 10/06/15 09:38 Prinivil - GT 40 mg DAILY KWAKU Administration Metoprolol Tartrate 5 mg 09/09/15 09:29 Lopressor Injection - IVPB Q6H PRN HYPERTENSION Metoprolol Tartrate 100 mg/ 125 mg 09/17/15 10:00 10/06/15 09:40 Metoprolol Tartrate 25 mg GT 125 mg BID KWAKU Administration Multivitamins 5 ml 09/09/15 10:00 10/06/15 09:38 Thera-Plus - GT 5 ml DAILY KWAKU Administration Ondansetron HCl 4 mg 09/09/15 09:29 Zofran Injection - IVPB Q6H PRN NAUSEA Pantoprazole Sodium 40 mg 09/09/15 10:00 10/06/15 09:39 Protonix Packets For Oral Suspension - GT 40 mg DAILY KWAKU Administration Silver Sulfadiazine 1 applic 09/09/15 10:00 10/05/15 11:51 Silvadene - TP 1 applic DAILY KWAKU Administration Assessment: 75 year old male with PMHx of HTN, IDDM, inguinal hernia who presented to the ED with diverticular bleed s/p Right hemicolectomy with 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 Plan: 1. Anoxic brain injury s/p brainstem CVAs - Mental status unchanged 2. Respiratory failure secondary to anoxic brain injury - Trach collar - Albuterol neb PRN 3. HTN - Lisinopril/Metoprolol/Amlodipine 4. Multiple pressure ulcers - Stage III sacrum healing: Collagenase bid with Allevyn dressing - Stage II left ear healing: Silvadene - Turn and position q2h 5. IDDM - Levemir 28 units HS - ISS BGM ACHS 6. F/E/N: - Tube feeds: Vital 1.5 @60ml/hr 7. Prophylaxis: - SCDs bilaterally - Lovenox CODE STATUS: DNR
[2015-10-06] MEDS: INSULIN DETEMIR 100 UNITS/ML MDV SQ SCH (21:49)
[2015-10-07] MEDS: INSULIN (NOVOLOG) ASPART 100 UNITS/ML 10ML VIAL SQ SCH ×4 (06:35→23:08)
[2015-10-07] MEDS: AMINO ACIDS/PROTEIN HYDROLYS SUGAR-FREE 30 ML PACKET PO SCH ×2 (09:00→17:54)
[2015-10-07] MEDS: ENOXAPARIN NA (PORCINE) 40 MG/0.4 ML DISP.SYRIN SQ SCH (10:22)
[2015-10-07] MEDS: COLLAGENASE CLOSTRIDIUM HIST. 30 GRAMS TUBE TP SCH (10:26)
[2015-10-07] MEDS: LISINOPRIL 20 MG TABLET (FP) GT SCH (10:26)
[2015-10-07] MEDS: PANTOPRAZOLE SOD 40 MG SUSPENSION PACKET GT SCH (10:26)
[2015-10-07] MEDS: amLODIPine BESYLATE 10 MG TABLET (FP) GT SCH (10:26)
[2015-10-07] MEDS: SILVER SULFADIAZINE 1% TOP CREAM 50 GM JAR TP SCH (10:26)
[2015-10-07] MEDS: METOPROLOL TARTRATE 100 MG, METOPROLOL TARTRATE 25 MG GT SCH ×2 (10:27→23:07)
[2015-10-07] MEDS: MULTIVITAMINS THERAPEUTIC GT SCH (10:27)
--- NOTE | 2015-10-07 12:16 | PN ---
Progress Note (short form) - Note Progress Note: Subjective: Pt seen and examined at bedside. He is awake, non responsive to verbal stimuli. He appears comfortable. Objective: Last Vital Signs Temp Pulse Resp BP Pulse Ox 99.9 F H 87 20 149/79 94 L 10/07/15 06:00 10/07/15 09:05 10/06/15 22:33 10/07/15 06:00 10/07/15 09:05 PE: General: No acute distress Neuro: spontaneous eye movement, non verbal Pulm: Tach collar 35%, scattered rhonchi anteriorly, + secretions Cv: s1 s2 rrr no mrg Abd: peg tube CDI, soft, +BS Ext: LUE edema+1, no lower ext edema, warm, non purposeful movement of RUE CBCD WBC 11.6 K/mm3 (4.0-10.0) H 10/06/15 08:30 RBC 3.10 M/mm3 (4.00-5.60) L 10/06/15 08:30 Hgb 8.6 GM/dL (11.7-16.9) L 10/06/15 08:30 Hct 26.7 % (35.4-49) L 10/06/15 08:30 MCV 86.3 fl (80-96) 10/06/15 08:30 MCHC 32.2 g/dl (32.0-35.9) 10/06/15 08:30 RDW 16.2 % (11.9-15.9) H 10/06/15 08:30 Plt Count 321 K/MM3 (134-434) 10/06/15 08:30 MPV 7.9 fl (7.5-11.1) 10/06/15 08:30 CMP Sodium 140 mmol/L (136-145) 10/06/15 08:30 Potassium 3.7 mmol/L (3.5-5.1) 10/06/15 08:30 Chloride 100 mmol/L (98-107) 10/06/15 08:30 Carbon Dioxide 32 mmol/L (21-32) 10/06/15 08:30 Anion Gap 8 (8-16) 10/06/15 08:30 BUN 18 mg/dL (7-18) 10/06/15 08:30 Creatinine 0.6 mg/dL (0.7-1.3) L 10/06/15 08:30 Creat Clearance w eGFR > 60 (>60) 10/06/15 08:30 Calcium 9.5 mg/dL (8.5-10.1) 10/06/15 08:30 Total Bilirubin 0.2 mg/dL (0.2-1.0) 10/06/15 08:30 AST 14 U/L (15-37) L D 10/06/15 08:30 ALT 27 U/L (12-78) D 10/06/15 08:30 Alkaline Phosphatase 94 U/L (45-117) 10/06/15 08:30 Total Protein 7.1 g/dl (6.4-8.2) 10/06/15 08:30 Albumin 2.9 g/dl (3.4-5.0) L 10/06/15 08:30 Current Medications Generic Name Dose Route Start Last Admin Trade Name Freq PRN Reason Stop Dose Admin Acetaminophen 650 mg 09/09/15 09:29 10/02/15 07:06 Tylenol Oral Solution - GT 650 mg Q6H PRN Administration FEVER Albuterol Sulfate 1 amp 10/02/15 18:41 Ventolin 0.083% Nebulizer Soln - NEB Q4H PRN SHORT OF BREATH/WHEEZING Amino Acids 30 ml 09/15/15 17:30 10/07/15 09:00 Prostat Sugar-Free Packet - PO 30 ml BID@0800,1730 KWAKU Administration Amlodipine Besylate 10 mg 09/09/15 10:00 10/07/15 10:26 Norvasc - GT 10 mg DAILY KWAKU Administration Collagenase 1 applic 09/09/15 10:00 10/07/15 10:26 Santyl - TP 1 applic DAILY KWAKU Administration Enoxaparin Sodium 40 mg 09/26/15 18:15 10/07/15 10:22 Lovenox - SQ 40 mg DAILY KWAKU Administration Ibuprofen 200 mg 09/09/15 09:29 Motrin Oral Suspension - PO Q6H PRN FEVER Insulin Aspart 0 units 09/09/15 12:00 10/07/15 06:35 Novolog Vial SQ 2 units Q6HPO KWAKU Administration Protocol Insulin Detemir 28 units 09/09/15 22:00 10/06/15 21:49 Levemir Vial SQ 28 units HS KWAKU Administration Lisinopril 40 mg 11/12/15 10:00 10/07/15 10:26 Prinivil - GT 40 mg DAILY KWAKU Administration Metoprolol Tartrate 5 mg 09/09/15 09:29 Lopressor Injection - IVPB Q6H PRN HYPERTENSION Metoprolol Tartrate 100 mg/ 125 mg 09/17/15 10:00 10/07/15 10:27 Metoprolol Tartrate 25 mg GT 125 mg BID KWAKU Administration Multivitamins 5 ml 09/09/15 10:00 10/07/15 10:27 Thera-Plus - GT 5 ml DAILY KWAKU Administration Ondansetron HCl 4 mg 09/09/15 09:29 Zofran Injection - IVPB Q6H PRN NAUSEA Pantoprazole Sodium 40 mg 09/09/15 10:00 10/07/15 10:26 Protonix Packets For Oral Suspension - GT 40 mg DAILY KWAKU Administration Silver Sulfadiazine 1 applic 09/09/15 10:00 10/07/15 10:26 Silvadene - TP 1 applic DAILY KWAKU Administration Assessment/Plan: 75 year old male with PMHx of HTN, IDDM, inguinal hernia who presented to the ED with diverticular bleed s/p Right hemicolectomy with 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 Anoxic brain injury s/p brainstem CVAs - Mental status unchanged Respiratory failure secondary to anoxic brain injury - Trach collar - Albuterol neb PRN HTN - Lisinopril/Metoprolol/Amlodipine Multiple pressure ulcers - Stage III sacrum healing: Collagenase bid with Allevyn dressing - Stage II left ear healing: Silvadene - Turn and position q2h IDDM - Levemir 28 units HS - ISS BGM ACHS F/E/N: - Tube feeds: Vital 1.5 @60ml/hr Prophylaxis: - SCDs bilaterally - Lovenox CODE STATUS: DNR
[2015-10-07] MEDS: INSULIN DETEMIR 100 UNITS/ML MDV SQ SCH (23:07)
[2015-10-08] MEDS: INSULIN (NOVOLOG) ASPART 100 UNITS/ML 10ML VIAL SQ SCH ×4 (06:07→23:00)
[2015-10-08] MEDS: LISINOPRIL 20 MG TABLET (FP) GT SCH (09:37)
[2015-10-08] MEDS: ENOXAPARIN NA (PORCINE) 40 MG/0.4 ML DISP.SYRIN SQ SCH (09:37)
[2015-10-08] MEDS: amLODIPine BESYLATE 10 MG TABLET (FP) GT SCH (09:37)
[2015-10-08] MEDS: METOPROLOL TARTRATE 100 MG, METOPROLOL TARTRATE 25 MG GT SCH ×2 (09:38→22:52)
[2015-10-08] MEDS: PANTOPRAZOLE SOD 40 MG SUSPENSION PACKET GT SCH (09:38)
[2015-10-08] MEDS: AMINO ACIDS/PROTEIN HYDROLYS SUGAR-FREE 30 ML PACKET PO SCH ×2 (09:38→17:21)
[2015-10-08] MEDS: MULTIVITAMINS THERAPEUTIC GT SCH (09:39)
[2015-10-08] MEDS: COLLAGENASE CLOSTRIDIUM HIST. 30 GRAMS TUBE TP SCH (15:00)
[2015-10-08] MEDS: SILVER SULFADIAZINE 1% TOP CREAM 50 GM JAR TP SCH (15:00)
--- NOTE | 2015-10-08 16:23 | PN ---
Progress Note (short form) - Note Progress Note: Subjective: Pt seen and examined at bedside. He is awake, non responsive to verbal stimuli. NAD. Objective: Last Vital Signs Temp Pulse Resp BP Pulse Ox 99.8 F H 85 20 157/93 97 10/08/15 14:45 10/08/15 14:45 10/08/15 14:45 10/08/15 09:44 10/08/15 10:00 PE: General: No acute distress Neuro: spontaneous eye movement, non verbal Pulm: Tach collar 35%, scattered rhonchi anteriorly, + secretions Cv: s1 s2 rrr no mrg Abd: peg tube CDI, soft, +BS Ext: LUE edema+1, no lower ext edema, warm, non purposeful movement of RUE CBCD WBC 11.6 K/mm3 (4.0-10.0) H 10/06/15 08:30 RBC 3.10 M/mm3 (4.00-5.60) L 10/06/15 08:30 Hgb 8.6 GM/dL (11.7-16.9) L 10/06/15 08:30 Hct 26.7 % (35.4-49) L 10/06/15 08:30 MCV 86.3 fl (80-96) 10/06/15 08:30 MCHC 32.2 g/dl (32.0-35.9) 10/06/15 08:30 RDW 16.2 % (11.9-15.9) H 10/06/15 08:30 Plt Count 321 K/MM3 (134-434) 10/06/15 08:30 MPV 7.9 fl (7.5-11.1) 10/06/15 08:30 CMP Sodium 140 mmol/L (136-145) 10/06/15 08:30 Potassium 3.7 mmol/L (3.5-5.1) 10/06/15 08:30 Chloride 100 mmol/L (98-107) 10/06/15 08:30 Carbon Dioxide 32 mmol/L (21-32) 10/06/15 08:30 Anion Gap 8 (8-16) 10/06/15 08:30 BUN 18 mg/dL (7-18) 10/06/15 08:30 Creatinine 0.6 mg/dL (0.7-1.3) L 10/06/15 08:30 Creat Clearance w eGFR > 60 (>60) 10/06/15 08:30 Calcium 9.5 mg/dL (8.5-10.1) 10/06/15 08:30 Total Bilirubin 0.2 mg/dL (0.2-1.0) 10/06/15 08:30 AST 14 U/L (15-37) L D 10/06/15 08:30 ALT 27 U/L (12-78) D 10/06/15 08:30 Alkaline Phosphatase 94 U/L (45-117) 10/06/15 08:30 Total Protein 7.1 g/dl (6.4-8.2) 10/06/15 08:30 Albumin 2.9 g/dl (3.4-5.0) L 10/06/15 08:30 Current Medications Generic Name Dose Route Start Last Admin Trade Name Freq PRN Reason Stop Dose Admin Acetaminophen 650 mg 09/09/15 09:29 10/02/15 07:06 Tylenol Oral Solution - GT 650 mg Q6H PRN Administration FEVER Amino Acids 30 ml 09/15/15 17:30 10/08/15 09:38 Prostat Sugar-Free Packet - PO 30 ml BID@0800,1730 KWAKU Administration Amlodipine Besylate 10 mg 09/09/15 10:00 10/08/15 09:37 Norvasc - GT 10 mg DAILY KWAKU Administration Collagenase 1 applic 09/09/15 10:00 10/07/15 10:26 Santyl - TP 1 applic DAILY KWAKU Administration Enoxaparin Sodium 40 mg 09/26/15 18:15 10/08/15 09:37 Lovenox - SQ 40 mg DAILY KWAKU Administration Ibuprofen 200 mg 09/09/15 09:29 Motrin Oral Suspension - PO Q6H PRN FEVER Insulin Aspart 0 units 09/09/15 12:00 10/08/15 13:01 Novolog Vial SQ 2 units Q6HPO KWAKU Administration Protocol Insulin Detemir 28 units 09/09/15 22:00 10/07/15 23:07 Levemir Vial SQ 28 units HS KWAKU Administration Lisinopril 40 mg 09/09/15 10:00 10/08/15 09:37 Prinivil - GT 40 mg DAILY KWAKU Administration Metoprolol Tartrate 5 mg 09/09/15 09:29 Lopressor Injection - IVPB Q6H PRN HYPERTENSION Metoprolol Tartrate 100 mg/ 125 mg 09/17/15 10:00 10/08/15 09:38 Metoprolol Tartrate 25 mg GT 125 mg BID KWAKU Administration Multivitamins 5 ml 09/09/15 10:00 10/08/15 09:39 Thera-Plus - GT 5 ml DAILY KWAKU Administration Ondansetron HCl 4 mg 09/09/15 09:29 Zofran Injection - IVPB Q6H PRN NAUSEA Pantoprazole Sodium 40 mg 09/09/15 10:00 10/08/15 09:38 Protonix Packets For Oral Suspension - GT 40 mg DAILY KWAKU Administration Silver Sulfadiazine 1 applic 09/09/15 10:00 10/07/15 10:26 Silvadene - TP 1 applic DAILY KWAKU Administration Assessment/Plan: 75 year old male with PMHx of HTN, IDDM, inguinal hernia who presented to the ED with diverticular bleed s/p Right hemicolectomy with 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 Anoxic brain injury s/p brainstem CVAs - Mental status unchanged Respiratory failure secondary to anoxic brain injury - Trach collar - Albuterol neb PRN HTN - Lisinopril/Metoprolol/Amlodipine Multiple pressure ulcers - Stage III sacrum healing: Collagenase bid with Allevyn dressing - Stage II left ear healing: Silvadene - Turn and position q2h IDDM - Levemir 28 units HS - ISS BGM ACHS F/E/N: - Tube feeds: Vital 1.5 @60ml/hr Prophylaxis: - SCDs bilaterally - Lovenox CODE STATUS: DNR
[2015-10-08] MEDS: INSULIN DETEMIR 100 UNITS/ML MDV SQ SCH (22:53)
[2015-10-09] MEDS: INSULIN (NOVOLOG) ASPART 100 UNITS/ML 10ML VIAL SQ SCH ×3 (05:31→17:42)
[2015-10-09] MEDS: METOPROLOL TARTRATE 100 MG, METOPROLOL TARTRATE 25 MG GT SCH ×2 (09:28→22:10)
[2015-10-09] MEDS: PANTOPRAZOLE SOD 40 MG SUSPENSION PACKET GT SCH (09:28)
[2015-10-09] MEDS: amLODIPine BESYLATE 10 MG TABLET (FP) GT SCH (09:29)
[2015-10-09] MEDS: AMINO ACIDS/PROTEIN HYDROLYS SUGAR-FREE 30 ML PACKET PO SCH ×2 (09:29→17:42)
[2015-10-09] MEDS: LISINOPRIL 20 MG TABLET (FP) GT SCH (09:29)
[2015-10-09] MEDS: ENOXAPARIN NA (PORCINE) 40 MG/0.4 ML DISP.SYRIN SQ SCH (09:29)
[2015-10-09] MEDS: MULTIVITAMINS THERAPEUTIC GT SCH (09:30)
[2015-10-09] MEDS: COLLAGENASE CLOSTRIDIUM HIST. 30 GRAMS TUBE TP SCH (10:00)
[2015-10-09] MEDS: SILVER SULFADIAZINE 1% TOP CREAM 50 GM JAR TP SCH (10:00)
--- NOTE | 2015-10-09 12:40 | PN ---
Progress Note (short form) - Note Progress Note: Subjective: Pt seen and examined at bedside. TC @35%, asleep. No events overnight Objective: Last Vital Signs Temp Pulse Resp BP Pulse Ox 98.9 F 79 20 157/85 98 10/09/15 10:00 10/09/15 10:05 10/09/15 10:00 10/09/15 10:00 10/09/15 10:05 PE: General: No acute distress Neuro: spontaneous eye movement, non verbal Pulm: TC, scattered ronchi anteriorly, + secretions Cv: s1 s2 rrr no mrg Abd: peg tube CDI, soft, +BS Ext: LUE edema+1, no lower ext edema, warm, non purposeful movement of RUE, no LUE movement Current Medications Generic Name Dose Route Start Last Admin Trade Name Freq PRN Reason Stop Dose Admin Acetaminophen 650 mg 09/09/15 09:29 10/02/15 07:06 Tylenol Oral Solution - GT 650 mg Q6H PRN Administration FEVER Amino Acids 30 ml 09/15/15 17:30 10/09/15 09:29 Prostat Sugar-Free Packet - PO 30 ml BID@0800,1730 KWAKU Administration Amlodipine Besylate 10 mg 09/09/15 10:00 10/09/15 09:29 Norvasc - GT 10 mg DAILY KWAKU Administration Collagenase 1 applic 09/09/15 10:00 10/08/15 15:00 Santyl - TP 1 applic DAILY KWAKU Administration Enoxaparin Sodium 40 mg 09/26/15 18:15 10/09/15 09:29 Lovenox - SQ 40 mg DAILY KWAKU Administration Ibuprofen 200 mg 09/09/15 09:29 Motrin Oral Suspension - PO Q6H PRN FEVER Insulin Aspart 0 units 09/09/15 12:00 10/09/15 11:35 Novolog Vial SQ 6 units Q6HPO KWAKU Administration Protocol Insulin Detemir 28 units 09/09/15 22:00 10/08/15 22:53 Levemir Vial SQ 28 units HS KWAKU Administration Lisinopril 40 mg 09/09/15 10:00 10/09/15 09:29 Prinivil - GT 40 mg DAILY KWAKU Administration Metoprolol Tartrate 5 mg 09/09/15 09:29 Lopressor Injection - IVPB Q6H PRN HYPERTENSION Metoprolol Tartrate 100 mg/ 125 mg 09/17/15 10:00 10/09/15 09:28 Metoprolol Tartrate 25 mg GT 125 mg BID KWAKU Administration Multivitamins 5 ml 09/09/15 10:00 10/09/15 09:30 Thera-Plus - GT 5 ml DAILY KWAKU Administration Ondansetron HCl 4 mg 09/09/15 09:29 Zofran Injection - IVPB Q6H PRN NAUSEA Pantoprazole Sodium 40 mg 09/09/15 10:00 10/09/15 09:28 Protonix Packets For Oral Suspension - GT 40 mg DAILY KWAKU Administration Silver Sulfadiazine 1 applic 09/09/15 10:00 10/08/15 15:00 Silvadene - TP 1 applic DAILY KWAKU Administration Assessment: 75 year old male with PMHx of HTN, IDDM, inguinal hernia who presented to the ED with diverticular bleed s/p Right hemicolectomy with 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 Plan: 1. Anoxic brain injury s/p brainstem CVAs - Mental status unchanged 2. Respiratory failure secondary to anoxic brain injury - Trach collar - Albuterol neb PRN 3. HTN - Lisinopril/Metoprolol/Amlodipine 4. Multiple pressure ulcers - Stage III sacrum healing: Collagenase bid with Allevyn dressing - Stage II left ear healing: Silvadene - Turn and position q2h 5. IDDM - Levemir 28 units HS - ISS BGM ACHS 6. F/E/N: - Tube feeds: Vital 1.5 @60ml/hr 7. Prophylaxis: - SCDs bilaterally - Lovenox CODE STATUS: DNR
[2015-10-09] MEDS: INSULIN DETEMIR 100 UNITS/ML MDV SQ SCH (22:09)
[2015-10-10] MEDS: INSULIN (NOVOLOG) ASPART 100 UNITS/ML 10ML VIAL SQ SCH ×5 (00:26→23:09)
[2015-10-10] MEDS: ACETAMINOPHEN 650 MG/20.3 ML ORAL SOLUTION (CUPS) GT PRN (01:19)
[2015-10-10] MEDS: LISINOPRIL 20 MG TABLET (FP) GT SCH (09:36)
[2015-10-10] MEDS: amLODIPine BESYLATE 10 MG TABLET (FP) GT SCH (09:36)
[2015-10-10] MEDS: AMINO ACIDS/PROTEIN HYDROLYS SUGAR-FREE 30 ML PACKET PO SCH ×2 (09:37→16:49)
[2015-10-10] MEDS: METOPROLOL TARTRATE 100 MG, METOPROLOL TARTRATE 25 MG GT SCH ×2 (09:37→22:44)
[2015-10-10] MEDS: PANTOPRAZOLE SOD 40 MG SUSPENSION PACKET GT SCH (09:38)
[2015-10-10] MEDS: MULTIVITAMINS THERAPEUTIC GT SCH (09:38)
[2015-10-10] MEDS: SILVER SULFADIAZINE 1% TOP CREAM 50 GM JAR TP SCH (10:00)
[2015-10-10] MEDS: COLLAGENASE CLOSTRIDIUM HIST. 30 GRAMS TUBE TP SCH (10:00)
--- NOTE | 2015-10-10 10:07 | PN ---
Progress Note (short form) - Note Progress Note: Subjective: Pt seen and examined at bedside. No acute distress noted. Objective: Last Vital Signs Temp Pulse Resp BP Pulse Ox 98.8 F 113 H 22 179/90 98 10/10/15 09:13 10/10/15 09:13 10/10/15 09:13 10/10/15 09:13 10/09/15 21:00 PE: General: No acute distress Neuro: spontaneous eye movement, non verbal Pulm: TC, scattered ronchi anteriorly Cv: s1 s2 rrr no mrg Abd: peg tube CDI, soft, +BS Ext: LUE edema+1, no lower ext edema, warm, non purposeful movement of RUE, no LUE movement Current Medications Generic Name Dose Route Start Last Admin Trade Name Freq PRN Reason Stop Dose Admin Acetaminophen 650 mg 09/09/15 09:29 10/10/15 01:19 Tylenol Oral Solution - GT 650 mg Q6H PRN Administration FEVER Amino Acids 30 ml 09/15/15 17:30 10/10/15 09:37 Prostat Sugar-Free Packet - PO 30 ml BID@0800,1730 KWAKU Administration Amlodipine Besylate 10 mg 09/09/15 10:00 10/10/15 09:36 Norvasc - GT 10 mg DAILY KWAKU Administration Collagenase 1 applic 09/09/15 10:00 10/09/15 10:00 Santyl - TP 1 applic DAILY KWAKU Administration Ibuprofen 200 mg 09/09/15 09:29 Motrin Oral Suspension - PO Q6H PRN FEVER Insulin Aspart 0 units 09/09/15 12:00 10/10/15 05:49 Novolog Vial SQ 2 units Q6HPO KWAKU Administration Protocol Insulin Detemir 28 units 09/09/15 22:00 10/09/15 22:09 Levemir Vial SQ 28 units HS KWAKU Administration Lisinopril 40 mg 09/09/15 10:00 10/10/15 09:36 Prinivil - GT 40 mg DAILY KWAKU Administration Metoprolol Tartrate 5 mg 09/09/15 09:29 Lopressor Injection - IVPB Q6H PRN HYPERTENSION Metoprolol Tartrate 100 mg/ 125 mg 09/17/15 10:00 10/10/15 09:37 Metoprolol Tartrate 25 mg GT 125 mg BID KWAKU Administration Multivitamins 5 ml 09/09/15 10:00 12/13/15 09:38 Thera-Plus - GT 5 ml DAILY KWAKU Administration Ondansetron HCl 4 mg 09/09/15 09:29 Zofran Injection - IVPB Q6H PRN NAUSEA Pantoprazole Sodium 40 mg 09/09/15 10:00 10/10/15 09:38 Protonix Packets For Oral Suspension - GT 40 mg DAILY KWAKU Administration Silver Sulfadiazine 1 applic 09/09/15 10:00 10/09/15 10:00 Silvadene - TP 1 applic DAILY KWAKU Administration Assessment: 75 year old male with PMHx of HTN, IDDM, inguinal hernia who presented to the ED with diverticular bleed s/p Right hemicolectomy with 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 Plan: 1. Anoxic brain injury s/p brainstem CVAs - Mental status unchanged 2. Respiratory failure secondary to anoxic brain injury - Trach collar - Albuterol neb PRN 3. HTN - Lisinopril/Metoprolol/Amlodipine 4. Multiple pressure ulcers - Stage III sacrum healing: Collagenase bid with Allevyn dressing - Stage II left ear healing: Silvadene - Turn and position q2h 5. IDDM - Levemir 28 units HS - ISS BGM ACHS 6. F/E/N: - Tube feeds: Vital 1.5 @60ml/hr 7. Prophylaxis: - SCDs bilaterally - Lovenox CODE STATUS: DNR - Tube feeds: Vital 1.5 @60ml/hr 7. Prophylaxis: - SCDs bilaterally - Lovenox CODE STATUS: DNR
[2015-10-10] MEDS: INSULIN DETEMIR 100 UNITS/ML MDV SQ SCH (22:42)
[2015-10-11] MEDS: INSULIN (NOVOLOG) ASPART 100 UNITS/ML 10ML VIAL SQ SCH ×3 (06:15→18:24)
[2015-10-11] MEDS: AMINO ACIDS/PROTEIN HYDROLYS SUGAR-FREE 30 ML PACKET PO SCH ×2 (08:57→18:25)
[2015-10-11] MEDS: LISINOPRIL 20 MG TABLET (FP) GT SCH (09:19)
[2015-10-11] MEDS: amLODIPine BESYLATE 10 MG TABLET (FP) GT SCH (09:19)
[2015-10-11] MEDS: METOPROLOL TARTRATE 100 MG, METOPROLOL TARTRATE 25 MG GT SCH ×2 (09:20→22:32)
[2015-10-11] MEDS: MULTIVITAMINS THERAPEUTIC GT SCH (09:21)
[2015-10-11] MEDS: PANTOPRAZOLE SOD 40 MG SUSPENSION PACKET GT SCH (09:21)
[2015-10-11] MEDS: SILVER SULFADIAZINE 1% TOP CREAM 50 GM JAR TP SCH (11:55)
[2015-10-11] MEDS: COLLAGENASE CLOSTRIDIUM HIST. 30 GRAMS TUBE TP SCH (11:55)
--- NOTE | 2015-10-11 12:27 | PN ---
Progress Note (short form) - Note Progress Note: Subjective: Pt seen and examined at bedside. No acute distress noted. TC 35% Objective: Last Vital Signs Temp Pulse Resp BP Pulse Ox 99.6 F 96 H 20 156/96 99 10/11/15 06:00 10/11/15 06:00 10/10/15 22:00 10/11/15 06:00 10/10/15 21:00 PE: General: No acute distress Neuro: spontaneous eye movement, non verbal Pulm: TC, scattered ronchi anteriorly Cv: s1 s2 rrr no mrg Abd: peg tube CDI, soft, +BS Ext: LUE edema+1, no lower ext edema, warm, non purposeful movement of RUE, no LUE movement Current Medications Generic Name Dose Route Start Last Admin Trade Name Freq PRN Reason Stop Dose Admin Acetaminophen 650 mg 09/09/15 09:29 10/10/15 01:19 Tylenol Oral Solution - GT 650 mg Q6H PRN Administration FEVER Amino Acids 30 ml 09/15/15 17:30 10/11/15 08:57 Prostat Sugar-Free Packet - PO 30 ml BID@0800,1730 KWAKU Administration Amlodipine Besylate 10 mg 09/09/15 10:00 10/11/15 09:19 Norvasc - GT 10 mg DAILY KWAKU Administration Collagenase 1 applic 09/09/15 10:00 10/11/15 11:55 Santyl - TP 1 applic DAILY KWAKU Administration Ibuprofen 200 mg 09/09/15 09:29 Motrin Oral Suspension - PO Q6H PRN FEVER Insulin Aspart 0 units 09/09/15 12:00 10/11/15 11:54 Novolog Vial SQ 2 units Q6HPO KWAKU Administration Protocol Insulin Detemir 28 units 09/09/15 22:00 10/10/15 22:42 Levemir Vial SQ 28 units HS KWAKU Administration Lisinopril 40 mg 09/09/15 10:00 10/11/15 09:19 Prinivil - GT 40 mg DAILY KWAKU Administration Metoprolol Tartrate 5 mg 09/09/15 09:29 Lopressor Injection - IVPB Q6H PRN HYPERTENSION Metoprolol Tartrate 100 mg/ 125 mg 09/17/15 10:00 10/11/15 09:20 Metoprolol Tartrate 25 mg GT 125 mg BID KWAKU Administration Multivitamins 5 ml 09/09/15 10:00 10/11/15 09:21 Thera-Plus - GT 5 ml DAILY KWAKU Administration Ondansetron HCl 4 mg 09/09/15 09:29 Zofran Injection - IVPB Q6H PRN NAUSEA Pantoprazole Sodium 40 mg 09/09/15 10:00 10/11/15 09:21 Protonix Packets For Oral Suspension - GT 40 mg DAILY KAWKU Administration Silver Sulfadiazine 1 applic 09/09/15 10:00 10/11/15 11:55 Silvadene - TP 1 applic DAILY KWAKU Administration Assessment: 75 year old male with PMHx of HTN, IDDM, inguinal hernia who presented to the ED with diverticular bleed s/p Right hemicolectomy with 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 Plan: 1. Anoxic brain injury s/p brainstem CVAs - Mental status unchanged 2. Respiratory failure secondary to anoxic brain injury - Trach collar - Albuterol neb PRN 3. HTN - Lisinopril/Metoprolol/Amlodipine 4. Multiple pressure ulcers - Stage III sacrum healing: Collagenase bid with Allevyn dressing - Stage II left ear healing: Silvadene - Turn and position q2h 5. IDDM - Levemir 28 units HS - ISS BGM ACHS 6. F/E/N: - Tube feeds: Vital 1.5 @60ml/hr 7. Prophylaxis: - SCDs bilaterally - Lovenox CODE STATUS: DNR
[2015-10-11] MEDS: INSULIN DETEMIR 100 UNITS/ML MDV SQ SCH (22:31)
[2015-10-12] MEDS: INSULIN (NOVOLOG) ASPART 100 UNITS/ML 10ML VIAL SQ SCH ×4 (00:21→18:47)
--- NOTE | 2015-10-12 08:05 | PN ---
Progress Note (short form) - Note Progress Note: Subjective: Pt seen and examined at bedside. No changes reported. Objective: Last Vital Signs Temp Pulse Resp BP Pulse Ox 99.1 F 109 H 20 146/86 98 10/11/15 22:00 10/11/15 22:16 10/11/15 22:00 10/11/15 22:00 10/11/15 22:16 PE: Neuro: spontaneous eye movement, non verbal Pulm: TC, scattered ronchi anteriorly Cv: s1 s2 rrr no mrg Abd: peg tube CDI, soft, +BS Ext: LUE edema+1, no lower ext edema, warm, non purposeful movement of RUE, no LUE movement Current Medications Generic Name Dose Route Start Last Admin Trade Name Freq PRN Reason Stop Dose Admin Acetaminophen 650 mg 09/09/15 09:29 10/10/15 01:19 Tylenol Oral Solution - GT 650 mg Q6H PRN Administration FEVER Amino Acids 30 ml 09/15/15 17:30 10/11/15 18:25 Prostat Sugar-Free Packet - PO 30 ml BID@0800,1730 KWAKU Administration Amlodipine Besylate 10 mg 09/09/15 10:00 10/11/15 09:19 Norvasc - GT 10 mg DAILY KWAKU Administration Collagenase 1 applic 09/09/15 10:00 10/11/15 11:55 Santyl - TP 1 applic DAILY KWAKU Administration Ibuprofen 200 mg 09/09/15 09:29 Motrin Oral Suspension - PO Q6H PRN FEVER Insulin Aspart 0 units 09/09/15 12:00 10/12/15 05:48 Novolog Vial SQ Not Given Q6HPO [facility] Protocol Insulin Detemir 28 units 09/09/15 22:00 10/11/15 22:31 Levemir Vial SQ 28 units HS KWAKU Administration Lisinopril 40 mg 09/09/15 10:00 10/11/15 09:19 Prinivil - GT 40 mg DAILY KWAKU Administration Metoprolol Tartrate 5 mg 09/09/15 09:29 Lopressor Injection - IVPB Q6H PRN HYPERTENSION Metoprolol Tartrate 100 mg/ 125 mg 09/17/15 10:00 10/11/15 22:32 Metoprolol Tartrate 25 mg GT 125 mg BID KWAKU Administration Multivitamins 5 ml 09/09/15 10:00 10/11/15 09:21 Thera-Plus - GT 5 ml DAILY KWAKU Administration Ondansetron HCl 4 mg 09/09/15 09:29 Zofran Injection - IVPB Q6H PRN NAUSEA Pantoprazole Sodium 40 mg 09/09/15 10:00 10/11/15 09:21 Protonix Packets For Oral Suspension - GT 40 mg DAILY KWAKU Administration Silver Sulfadiazine 1 applic 09/09/15 10:00 10/11/15 11:55 Silvadene - TP 1 applic DAILY KWAKU Administration Assessment: 75 year old male with PMHx of HTN, IDDM, inguinal hernia who presented to the ED with diverticular bleed s/p Right hemicolectomy with 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 Plan: 1. Anoxic brain injury s/p brainstem CVAs - Mental status unchanged 2. Respiratory failure secondary to anoxic brain injury - Trach collar - Albuterol neb PRN 3. HTN - Lisinopril/Metoprolol/Amlodipine 4. Multiple pressure ulcers - Stage III sacrum healing: Collagenase bid with Allevyn dressing - Stage II left ear healing: Silvadene - Turn and position q2h 5. IDDM - Levemir 28 units HS - ISS BGM ACHS 6. F/E/N: - Tube feeds: Vital 1.5 @60ml/hr 7. Prophylaxis: - SCDs bilaterally - Lovenox CODE STATUS: DNR
[2015-10-12] MEDS: AMINO ACIDS/PROTEIN HYDROLYS SUGAR-FREE 30 ML PACKET PO SCH ×2 (08:56→18:47)
[2015-10-12] MEDS: LISINOPRIL 20 MG TABLET (FP) GT SCH (10:47)
[2015-10-12] MEDS: amLODIPine BESYLATE 10 MG TABLET (FP) GT SCH (10:47)
[2015-10-12] MEDS: METOPROLOL TARTRATE 100 MG, METOPROLOL TARTRATE 25 MG GT SCH ×2 (10:47→22:15)
[2015-10-12] MEDS: MULTIVITAMINS THERAPEUTIC GT SCH (10:48)
[2015-10-12] MEDS: PANTOPRAZOLE SOD 40 MG SUSPENSION PACKET GT SCH (10:48)
[2015-10-12] MEDS: SILVER SULFADIAZINE 1% TOP CREAM 50 GM JAR TP SCH (14:00)
[2015-10-12] MEDS: COLLAGENASE CLOSTRIDIUM HIST. 30 GRAMS TUBE TP SCH ×2 (18:51→22:15)
[2015-10-12] MEDS: INSULIN DETEMIR 100 UNITS/ML MDV SQ SCH (22:16)
[2015-10-13] MEDS: INSULIN (NOVOLOG) ASPART 100 UNITS/ML 10ML VIAL SQ SCH ×4 (00:15→17:21)
[2015-10-13 08:29] LABS: BASOPHIL 0.7 % (0-2.0); EOSINOPHIL 6.3 % (0-4.5); MCH 28.2 pg (25.7-33.7); MCHC 32.7 g/dl (32.0-35.9); MEAN CELL VOLUME 86.4 fl (80-96); MEAN PLT VOLUME 7.6 fl (7.5-11.1); NEUTROPHILS 65.2 % (42.8-82.8); PLATELET COUNT 295 K/MM3 (134-434); RDW 15.8 % (11.9-15.9); WHITE BLOOD COUNT 7.7 K/mm3 (4.0-10.0)
[2015-10-13 08:57] LABS: ALBUMIN 3.2 g/dl (3.4-5.0); ALK PHOS 95 U/L (45-117); ANION GAP 8 (8-16); BILIRUBIN,TOTAL 0.2 mg/dL (0.2-1.0); CALCIUM 9.8 mg/dL (8.5-10.1); CO2 32 mmol/L (21-32); CREATININE 0.6 mg/dL (0.7-1.3); GLUCOSE,RANDOM 143 mg/dL (74-106); SGOT/AST 14 U/L (15-37); SGPT/ALT 24 U/L (12-78); TOT PROT 7.4 g/dl (6.4-8.2)
[2015-10-13] MEDS: PANTOPRAZOLE SOD 40 MG SUSPENSION PACKET GT SCH (09:12)
[2015-10-13] MEDS: AMINO ACIDS/PROTEIN HYDROLYS SUGAR-FREE 30 ML PACKET PO SCH ×2 (09:13→17:20)
[2015-10-13] MEDS: amLODIPine BESYLATE 10 MG TABLET (FP) GT SCH (09:13)
[2015-10-13] MEDS: LISINOPRIL 20 MG TABLET (FP) GT SCH (09:13)
[2015-10-13] MEDS: MULTIVITAMINS THERAPEUTIC GT SCH (09:14)
[2015-10-13] MEDS: METOPROLOL TARTRATE 100 MG, METOPROLOL TARTRATE 25 MG GT SCH ×2 (09:14→22:20)
--- NOTE | 2015-10-13 11:22 | PN ---
Progress Note (short form) - Note Progress Note: Subjective: Pt seen and examined at bedside. Passive ROM provided. Current Medications Generic Name Dose Route Start Last Admin Trade Name Freq PRN Reason Stop Dose Admin Acetaminophen 650 mg 09/09/15 09:29 10/10/15 01:19 Tylenol Oral Solution - GT 650 mg Q6H PRN Administration FEVER Albuterol Sulfate 1 amp 10/12/15 17:04 Ventolin 0.083% Nebulizer Soln - NEB Q4H PRN SHORT OF BREATH/WHEEZING Amino Acids 30 ml 09/15/15 17:30 10/13/15 09:13 Prostat Sugar-Free Packet - PO 30 ml BID@0800,1730 KWAKU Administration Amlodipine Besylate 10 mg 09/09/15 10:00 10/13/15 09:13 Norvasc - GT 10 mg DAILY KWAKU Administration Collagenase 1 applic 10/12/15 22:00 10/12/15 22:15 Santyl - TP 1 applic BID KWAKU Administration Ibuprofen 200 mg 09/09/15 09:29 Motrin Oral Suspension - PO Q6H PRN FEVER Insulin Aspart 0 units 09/09/15 12:00 10/13/15 06:29 Novolog Vial SQ Not Given Q6HPO KWAKU Protocol Insulin Detemir 28 units 09/09/15 22:00 10/12/15 22:16 Levemir Vial SQ 28 units HS KWAKU Administration Lisinopril 40 mg 09/09/15 10:00 10/13/15 09:13 Prinivil - GT 40 mg DAILY KWAKU Administration Metoprolol Tartrate 5 mg 09/09/15 09:29 Lopressor Injection - IVPB Q6H PRN HYPERTENSION Metoprolol Tartrate 100 mg/ 125 mg 09/17/15 10:00 10/13/15 09:14 Metoprolol Tartrate 25 mg GT 125 mg BID KWAKU Administration Multivitamins 5 ml 09/09/15 10:00 10/13/15 09:14 Thera-Plus - GT 5 ml DAILY KWAKU Administration Ondansetron HCl 4 mg 09/09/15 09:29 Zofran Injection - IVPB Q6H PRN NAUSEA Pantoprazole Sodium 40 mg 09/09/15 10:00 10/13/15 09:12 Protonix Packets For Oral Suspension - GT 40 mg DAILY KWAKU Administration Silver Sulfadiazine 1 applic 09/09/15 10:00 10/12/15 14:00 Silvadene - TP 1 applic DAILY KWAKU Administration Objective: Vital Signs Period Temp Pulse Resp BP Sys/Santiago Pulse Ox Last 24 Hr 98.4 F-99.2 F 70-92 19-20 123-152/66-90 98-99 Physical Exam: General: No acute distress Neuro: spontaneous eye movement, non verbal Pulm: Tach collar placed, clear anteriorly CV: RRR, S1S2 Abd: Soft, non-tender, non-distended. Normoactive bowel sounds. Peg tube CDI, Ext: Warm, well-perfused. 2+ DP/PT bilaterally CBCD WBC 7.7 K/mm3 (4.0-10.0) D 10/13/15 07:50 RBC 3.36 M/mm3 (4.00-5.60) L 10/13/15 07:50 Hgb 9.5 GM/dL (11.7-16.9) L D 10/13/15 07:50 Hct 29.0 % (35.4-49) L 10/13/15 07:50 MCV 86.4 fl (80-96) 10/13/15 07:50 MCHC 32.7 g/dl (32.0-35.9) 10/13/15 07:50 RDW 15.8 % (11.9-15.9) 10/13/15 07:50 Plt Count 295 K/MM3 (134-434) 10/13/15 07:50 MPV 7.6 fl (7.5-11.1) 10/13/15 07:50 CMP Sodium 141 mmol/L (136-145) 10/13/15 07:50 Potassium 3.5 mmol/L (3.5-5.1) 10/13/15 07:50 Chloride 101 mmol/L (98-107) 10/13/15 07:50 Carbon Dioxide 32 mmol/L (21-32) 10/13/15 07:50 Anion Gap 8 (8-16) 10/13/15 07:50 BUN 20 mg/dL (7-18) H 10/13/15 07:50 Creatinine 0.6 mg/dL (0.7-1.3) L 10/13/15 07:50 Creat Clearance w eGFR > 60 (>60) 10/13/15 07:50 Random Glucose 143 mg/dL (74-106) H 10/13/15 07:50 Calcium 9.8 mg/dL (8.5-10.1) 10/13/15 07:50 Total Bilirubin 0.2 mg/dL (0.2-1.0) 10/13/15 07:50 AST 14 U/L (15-37) L 10/13/15 07:50 ALT 24 U/L (12-78) 10/13/15 07:50 Alkaline Phosphatase 95 U/L (45-117) 10/13/15 07:50 Total Protein 7.4 g/dl (6.4-8.2) 10/13/15 07:50 Albumin 3.2 g/dl (3.4-5.0) L 10/13/15 07:50 CARDIAC ENZYMES Creatine Kinase 62 IU/L (38-174) 06/28/15 09:35 Troponin I 0.07 ng/ml (0.03-0.5) D 07/09/15 05:00 Assessment: 75 year old male with PMHx of HTN, IDDM, inguinal hernia who presented to the ED with diverticular bleed s/p Righ hemicolectomy with 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 Plan: 1. Anoxic brain injury s/p brainstem CVAs - Mental status unchanged - Moves R foot toes on command 2. Respiratory failure secondary to anoxic brain injury - Cont trach collar - Will not need to be discharged to a vent facility - Albuterol neb PRN 3. HTN - Continue lisinopril, metoprolol, amlodipine 4. Multiple pressure ulcers - Stage III sacrum healing: Will change to Medihoney dressing daily - Stage II left ear healing: healed - Turn and position q2h 5. IDDM - Levemir 28 units HS - ISS BGM ACHS 6. F/E/N: - Tube feeds: Vital 1.5 @60ml/hr 7. Prophylaxis: - SCDs bilaterally - Lovenox - PT for passive ROM. Instructed the nurse to do frequent passive ROM as well CODE STATUS: DNR
[2015-10-13] MEDS: COLLAGENASE CLOSTRIDIUM HIST. 30 GRAMS TUBE TP SCH ×2 (11:30→22:20)
--- NOTE | 2015-10-13 11:50 | PN ---
Progress Note (short form) - Note Progress Note: Wound Assessment H Reason for visit: Wound Assessment Request for consultation: by [facility] Interdisciplinary Wound Care Team Initial Encounter: No Previous Encounter: Yes Wounds - Wound Wound #1 Type of wound: Yes: Pressure ulcer Stage: III Location/laterality: sacrum across the midline Wound size: 5cmL x 5cm W x 0.5cmD Thickness: Partial Undermining: No Tunneling: No Drainage/exudate: yes, serosanguinous, COPIOUS Wound bed tissue: Slough, erythematous Wound edges color: Erythematous Wound edges raised: yes Wound edges rolled: yes, partially Wound edges contracted: No Pain: No Surrounding tissue to 4cm: Yes: erythematous Wound #2 Type of wound: Yes: Pressure ulcer Stage: III healed Location/laterality: left ear Wound size: 0.5cmL x 0.7cmW x 0.1cmD Thickness: Partial Undermining: No Tunneling: No Drainage/exudate: Yes, Wound bed tissue: Yes: Erythematous, slough Wound edges color: Normally pigmented Wound edges raised: No Wound edges rolled: No Wound edges contracted: No Pain: No Surrounding tissue to 4cm: Yes: Healthy Wound #3 Pressure ulcer, healed Stage II Assessment/Plan Wound #1 Diagnosis: Pressure ulcer Wound specific intervention: Collagenase to slough area TWICE DAILY Allevyn dressing Wound #2 Diagnosis: Pressure ulcer Wound specific intervention: None Wound 3 Diagnosis: pressure ulcer Wound specific intervention: none Impediments to healing: Limited mobility, Unable to self-position in bed, Hypoalbunemia, Nutritional deficiencies, Incontinence of urine, Incontinence of bowel Nutrition/Dietary supplements/vitamins: change to Jevity 1.5 at goal of 50, continue Prostat BID No recommendations; added Prostat BID today Support Surface: Accucair Overlay HOB elevation: 30 degrees Off-loading: Turning/repositioning q2h, Elevate heels off bed with pillows Incontinence management: Avoid diapers; if must be used, do not secure around patient
[2015-10-13] MEDS: SILVER SULFADIAZINE 1% TOP CREAM 50 GM JAR TP SCH (13:00)
[2015-10-13] MEDS: INSULIN DETEMIR 100 UNITS/ML MDV SQ SCH (22:20)
[2015-10-14] MEDS: INSULIN (NOVOLOG) ASPART 100 UNITS/ML 10ML VIAL SQ SCH ×4 (00:09→17:29)
[2015-10-14] MEDS: ALBUTEROL SO4 0.083% IH SOL 2.5 MG/3 ML VIAL.NEB. NEB PRN ×2 (06:50→11:10)
[2015-10-14] MEDS: AMINO ACIDS/PROTEIN HYDROLYS SUGAR-FREE 30 ML PACKET PO SCH ×2 (08:48→17:38)
[2015-10-14] MEDS: COLLAGENASE CLOSTRIDIUM HIST. 30 GRAMS TUBE TP SCH ×2 (09:29→22:37)
[2015-10-14] MEDS: amLODIPine BESYLATE 10 MG TABLET (FP) GT SCH (09:29)
[2015-10-14] MEDS: LISINOPRIL 20 MG TABLET (FP) GT SCH (09:29)
[2015-10-14] MEDS: MULTIVITAMINS THERAPEUTIC GT SCH (09:30)
[2015-10-14] MEDS: PANTOPRAZOLE SOD 40 MG SUSPENSION PACKET GT SCH (09:30)
[2015-10-14] MEDS: METOPROLOL TARTRATE 100 MG, METOPROLOL TARTRATE 25 MG GT SCH ×2 (09:30→22:37)
--- NOTE | 2015-10-14 10:14 | PN ---
Progress Note (short form) - Note Progress Note: Hospitalist Progress Note SUBJECTIVE: Patient seen and examined at bedside. NAD noted. Awake. OBJECTIVE: Last Vital Signs Temp Pulse Resp BP Pulse Ox 98.9 F 89 20 135/70 98 10/14/15 06:00 10/14/15 06:00 10/14/15 06:00 10/14/15 06:00 10/14/15 02:35 GENERAL: no acute distress PULMONARY:Tach collar placed, rhonchi. CARDIOVASCULAR: nS1,S2, RRR, no RMG ABDOMINAL: soft, nontender, nondistended, normoactive bowel sounds. Peg tube CDI. EXTREMITIES: warm, well perfused, no edema. 2+ DP/PT bilaterally NEUROLOGICAL:spontaneous eye movement, non verbal CBCD WBC 7.7 K/mm3 (4.0-10.0) D 10/13/15 07:50 RBC 3.36 M/mm3 (4.00-5.60) L 10/13/15 07:50 Hgb 9.5 GM/dL (11.7-16.9) L D 10/13/15 07:50 Hct 29.0 % (35.4-49) L 10/13/15 07:50 MCV 86.4 fl (80-96) 10/13/15 07:50 MCHC 32.7 g/dl (32.0-35.9) 10/13/15 07:50 RDW 15.8 % (11.9-15.9) 10/13/15 07:50 Plt Count 295 K/MM3 (134-434) 10/13/15 07:50 MPV 7.6 fl (7.5-11.1) 10/13/15 07:50 CMP Sodium 141 mmol/L (136-145) 10/13/15 07:50 Potassium 3.5 mmol/L (3.5-5.1) 10/13/15 07:50 Chloride 101 mmol/L (98-107) 10/13/15 07:50 Carbon Dioxide 32 mmol/L (21-32) 10/13/15 07:50 Anion Gap 8 (8-16) 10/13/15 07:50 BUN 20 mg/dL (7-18) H 10/13/15 07:50 Creatinine 0.6 mg/dL (0.7-1.3) L 10/13/15 07:50 Creat Clearance w eGFR > 60 (>60) 10/13/15 07:50 Calcium 9.8 mg/dL (8.5-10.1) 10/13/15 07:50 Total Bilirubin 0.2 mg/dL (0.2-1.0) 10/13/15 07:50 AST 14 U/L (15-37) L 10/13/15 07:50 ALT 24 U/L (12-78) 10/13/15 07:50 Alkaline Phosphatase 95 U/L (45-117) 10/13/15 07:50 Total Protein 7.4 g/dl (6.4-8.2) 10/13/15 07:50 Albumin 3.2 g/dl (3.4-5.0) L 10/13/15 07:50 Current Medications Generic Name Dose Route Start Last Admin Trade Name Freq PRN Reason Stop Dose Admin Acetaminophen 650 mg 09/09/15 09:29 10/10/15 01:19 Tylenol Oral Solution - GT 650 mg Q6H PRN Administration FEVER Albuterol Sulfate 1 amp 10/12/15 17:04 10/14/15 06:50 Ventolin 0.083% Nebulizer Soln - NEB 1 amp Q4H PRN Administration SHORT OF BREATH/WHEEZING Amino Acids 30 ml 09/15/15 17:30 10/14/15 08:48 Prostat Sugar-Free Packet - PO 30 ml BID@0800,1730 KWAKU Administration Amlodipine Besylate 10 mg 09/09/15 10:00 10/14/15 09:29 Norvasc - GT 10 mg DAILY KWAKU Administration Collagenase 1 applic 10/12/15 22:00 10/14/15 09:29 Santyl - TP 1 applic BID KWAKU Administration Ibuprofen 200 mg 09/09/15 09:29 Motrin Oral Suspension - PO Q6H PRN FEVER Insulin Aspart 0 units 09/09/15 12:00 10/14/15 06:25 Novolog Vial SQ Not Given Q6HPO [facility] Protocol Insulin Detemir 28 units 09/09/15 22:00 10/13/15 22:20 Levemir Vial SQ 28 units HS KWAKU Administration Lisinopril 40 mg 09/09/15 10:00 10/14/15 09:29 Prinivil - GT 40 mg DAILY KWAKU Administration Metoprolol Tartrate 5 mg 09/09/15 09:29 Lopressor Injection - IVPB Q6H PRN HYPERTENSION Metoprolol Tartrate 100 mg/ 125 mg 09/17/15 10:00 10/14/15 09:30 Metoprolol Tartrate 25 mg GT 125 mg BID KWAKU Administration Multivitamins 5 ml 09/09/15 10:00 10/14/15 09:30 Thera-Plus - GT 5 ml DAILY KWAKU Administration Ondansetron HCl 4 mg 09/09/15 09:29 Zofran Injection - IVPB Q6H PRN NAUSEA Pantoprazole Sodium 40 mg 09/09/15 10:00 10/14/15 09:30 Protonix Packets For Oral Suspension - GT 40 mg DAILY KWAKU Administration Assessment/Plan: 75 year old male with PMHx of HTN, IDDM, inguinal hernia who presented to the ED with diverticular bleed s/p Righ hemicolectomy with 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 Anoxic brain injury s/p brainstem CVAs - Mental status unchanged - Moves R foot toes on command Respiratory failure secondary to anoxic brain injury - Cont trach collar - Will not need to be discharged to a vent facility - Albuterol neb PRN HTN - Continue lisinopril, metoprolol, amlodipine Multiple pressure ulcers - Stage III sacrum healing: Will change to Medihoney dressing daily - Stage II left ear healing: healed - Turn and position q2h IDDM - Levemir 28 units HS - ISS BGM ACHS F/E/N: - Tube feeds: Vital 1.5 @60ml/hr Prophylaxis: - SCDs bilaterally - Lovenox - PT for passive ROM. frequent passive ROM as well by nursing Dispo: Requires alf placement. CODE STATUS: DNR
[2015-10-14] MEDS: INSULIN DETEMIR 100 UNITS/ML MDV SQ SCH (22:36)
[2015-10-15] MEDS: INSULIN (NOVOLOG) ASPART 100 UNITS/ML 10ML VIAL SQ SCH ×4 (06:52→17:27)
[2015-10-15] MEDS: AMINO ACIDS/PROTEIN HYDROLYS SUGAR-FREE 30 ML PACKET PO SCH ×2 (08:56→17:20)
[2015-10-15] MEDS: ACETAMINOPHEN 650 MG/20.3 ML ORAL SOLUTION (CUPS) GT PRN (10:23)
[2015-10-15] MEDS: METOPROLOL TARTRATE 100 MG, METOPROLOL TARTRATE 25 MG GT SCH ×2 (10:24→22:35)
[2015-10-15] MEDS: amLODIPine BESYLATE 10 MG TABLET (FP) GT SCH (10:24)
[2015-10-15] MEDS: ENOXAPARIN NA (PORCINE) 40 MG/0.4 ML DISP.SYRIN SQ SCH (10:24)
[2015-10-15] MEDS: PANTOPRAZOLE SOD 40 MG SUSPENSION PACKET GT SCH (10:24)
[2015-10-15] MEDS: MULTIVITAMINS THERAPEUTIC GT SCH (10:24)
[2015-10-15] MEDS: LISINOPRIL 20 MG TABLET (FP) GT SCH (10:24)
[2015-10-15] MEDS: COLLAGENASE CLOSTRIDIUM HIST. 30 GRAMS TUBE TP SCH ×2 (10:25→22:35)
--- NOTE | 2015-10-15 15:13 | PN ---
Progress Note (short form) - Note Progress Note: Hospitalist Progress Note SUBJECTIVE: Patient seen and examined at bedside. NAD noted. Awake. OBJECTIVE: Last Vital Signs Temp Pulse Resp BP Pulse Ox 99.2 F 99 H 18 147/90 97 10/15/15 10:00 10/15/15 10:30 10/15/15 10:00 10/15/15 10:00 10/15/15 10:30 GENERAL: no acute distress PULMONARY:Tach collar placed, rhonchi. CARDIOVASCULAR: nS1,S2, RRR, no RMG ABDOMINAL: soft, nontender, nondistended, normoactive bowel sounds. Peg tube CDI. EXTREMITIES: warm, well perfused, no edema. 2+ DP/PT bilaterally NEUROLOGICAL:spontaneous eye movement, non verbal CBCD WBC 7.7 K/mm3 (4.0-10.0) D 10/13/15 07:50 RBC 3.36 M/mm3 (4.00-5.60) L 10/13/15 07:50 Hgb 9.5 GM/dL (11.7-16.9) L D 10/13/15 07:50 Hct 29.0 % (35.4-49) L 10/13/15 07:50 MCV 86.4 fl (80-96) 10/13/15 07:50 MCHC 32.7 g/dl (32.0-35.9) 10/13/15 07:50 RDW 15.8 % (11.9-15.9) 10/13/15 07:50 Plt Count 295 K/MM3 (134-434) 10/13/15 07:50 MPV 7.6 fl (7.5-11.1) 10/13/15 07:50 CMP Sodium 141 mmol/L (136-145) 10/13/15 07:50 Potassium 3.5 mmol/L (3.5-5.1) 10/13/15 07:50 Chloride 101 mmol/L (98-107) 10/13/15 07:50 Carbon Dioxide 32 mmol/L (21-32) 10/13/15 07:50 Anion Gap 8 (8-16) 10/13/15 07:50 BUN 20 mg/dL (7-18) H 10/13/15 07:50 Creatinine 0.6 mg/dL (0.7-1.3) L 10/13/15 07:50 Creat Clearance w eGFR > 60 (>60) 10/13/15 07:50 Calcium 9.8 mg/dL (8.5-10.1) 10/13/15 07:50 Total Bilirubin 0.2 mg/dL (0.2-1.0) 10/13/15 07:50 AST 14 U/L (15-37) L 10/13/15 07:50 ALT 24 U/L (12-78) 10/13/15 07:50 Alkaline Phosphatase 95 U/L (45-117) 10/13/15 07:50 Total Protein 7.4 g/dl (6.4-8.2) 10/13/15 07:50 Albumin 3.2 g/dl (3.4-5.0) L 10/13/15 07:50 Current Medications Generic Name Dose Route Start Last Admin Trade Name Freq PRN Reason Stop Dose Admin Acetaminophen 650 mg 09/09/15 09:29 10/15/15 10:23 Tylenol Oral Solution - GT 650 mg Q6H PRN Administration FEVER Albuterol Sulfate 1 amp 10/12/15 17:04 10/14/15 11:10 Ventolin 0.083% Nebulizer Soln - NEB 1 amp Q4H PRN Administration SHORT OF BREATH/WHEEZING Amino Acids 30 ml 09/15/15 17:30 10/15/15 08:56 Prostat Sugar-Free Packet - PO 30 ml BID@0800,1730 KWAKU Administration Amlodipine Besylate 10 mg 09/09/15 10:00 10/15/15 10:24 Norvasc - GT 10 mg DAILY KWAKU Administration Collagenase 1 applic 10/12/15 22:00 10/15/15 10:25 Santyl - TP 1 applic BID KWAKU Administration Enoxaparin Sodium 40 mg 10/15/15 10:00 10/15/15 10:24 Lovenox - SQ 40 mg DAILY KWAKU Administration Ibuprofen 200 mg 09/09/15 09:29 Motrin Oral Suspension - PO Q6H PRN FEVER Insulin Aspart 0 units 09/09/15 12:00 10/15/15 11:31 Novolog Vial SQ Not Given Q6HPO KWAKU Protocol Insulin Detemir 28 units 09/09/15 22:00 10/14/15 22:36 Levemir Vial SQ 28 units HS KWAKU Administration Lisinopril 40 mg 09/09/15 10:00 10/15/15 10:24 Prinivil - GT 40 mg DAILY KWAKU Administration Metoprolol Tartrate 5 mg 09/09/15 09:29 Lopressor Injection - IVPB Q6H PRN HYPERTENSION Metoprolol Tartrate 100 mg/ 125 mg 09/17/15 10:00 10/15/15 10:24 Metoprolol Tartrate 25 mg GT 125 mg BID KWAKU Administration Multivitamins 5 ml 09/09/15 10:00 10/15/15 10:24 Thera-Plus - GT 5 ml DAILY KWAKU Administration Ondansetron HCl 4 mg 09/09/15 09:29 Zofran Injection - IVPB Q6H PRN NAUSEA Pantoprazole Sodium 40 mg 09/09/15 10:00 10/15/15 10:24 Protonix Packets For Oral Suspension - GT 40 mg DAILY KWAKU Administration Assessment/Plan: 75 year old male with PMHx of HTN, IDDM, inguinal hernia who presented to the ED with diverticular bleed s/p Righ hemicolectomy with 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 Anoxic brain injury s/p brainstem CVAs - Mental status unchanged - not following commands Respiratory failure secondary to anoxic brain injury - Cont trach collar - Albuterol neb PRN HTN - Continue lisinopril, metoprolol, amlodipine Multiple pressure ulcers - Stage III sacrum healing: Will change to Medihoney dressing daily - Stage II left ear healing: healed - Turn and position q2h IDDM - Levemir 28 units HS - ISS BGM ACHS F/E/N: - Tube feeds: Vital 1.5 @60ml/hr Prophylaxis: - SCDs bilaterally - Lovenox - PT for passive ROM. frequent passive ROM as well by nursing Dispo: Requires [facility] care CODE STATUS: DNR
[2015-10-15] MEDS: INSULIN DETEMIR 100 UNITS/ML MDV SQ SCH (22:35)
[2015-10-16] MEDS: INSULIN (NOVOLOG) ASPART 100 UNITS/ML 10ML VIAL SQ SCH ×4 (01:24→17:55)
[2015-10-16] MEDS: amLODIPine BESYLATE 10 MG TABLET (FP) GT SCH (10:26)
[2015-10-16] MEDS: LISINOPRIL 20 MG TABLET (FP) GT SCH (10:26)
[2015-10-16] MEDS: METOPROLOL TARTRATE 100 MG, METOPROLOL TARTRATE 25 MG GT SCH ×2 (10:27→21:22)
[2015-10-16] MEDS: PANTOPRAZOLE SOD 40 MG SUSPENSION PACKET GT SCH (10:28)
[2015-10-16] MEDS: MULTIVITAMINS THERAPEUTIC GT SCH (10:29)
[2015-10-16] MEDS: COLLAGENASE CLOSTRIDIUM HIST. 30 GRAMS TUBE TP SCH ×2 (10:29→21:22)
[2015-10-16] MEDS: AMINO ACIDS/PROTEIN HYDROLYS SUGAR-FREE 30 ML PACKET PO SCH ×2 (10:29→17:56)
--- NOTE | 2015-10-16 14:01 | PN ---
Progress Note (short form) - Note Progress Note: Hospitalist Progress Note SUBJECTIVE: Patient seen and examined at bedside. NAD noted. Awake. OBJECTIVE: Last Vital Signs Temp Pulse Resp BP Pulse Ox 98.9 F 103 H 20 146/89 98 10/16/15 05:44 10/16/15 11:33 10/16/15 05:44 10/16/15 05:44 10/16/15 11:33 GENERAL: no acute distress PULMONARY:Tach collar placed, rhonchi. CARDIOVASCULAR: nS1,S2, RRR, no RMG ABDOMINAL: soft, nontender, nondistended, normoactive bowel sounds. Peg tube CDI. EXTREMITIES: warm, well perfused, no edema. 2+ DP/PT bilaterally NEUROLOGICAL:spontaneous eye movement, non verbal CBCD WBC 7.7 K/mm3 (4.0-10.0) D 10/13/15 07:50 RBC 3.36 M/mm3 (4.00-5.60) L 10/13/15 07:50 Hgb 9.5 GM/dL (11.7-16.9) L D 10/13/15 07:50 Hct 29.0 % (35.4-49) L 10/13/15 07:50 MCV 86.4 fl (80-96) 10/13/15 07:50 MCHC 32.7 g/dl (32.0-35.9) 10/13/15 07:50 RDW 15.8 % (11.9-15.9) 10/13/15 07:50 Plt Count 295 K/MM3 (134-434) 10/13/15 07:50 MPV 7.6 fl (7.5-11.1) 10/13/15 07:50 CMP Sodium 141 mmol/L (136-145) 10/13/15 07:50 Potassium 3.5 mmol/L (3.5-5.1) 10/13/15 07:50 Chloride 101 mmol/L (98-107) 10/13/15 07:50 Carbon Dioxide 32 mmol/L (21-32) 10/13/15 07:50 Anion Gap 8 (8-16) 10/13/15 07:50 BUN 20 mg/dL (7-18) H 10/13/15 07:50 Creatinine 0.6 mg/dL (0.7-1.3) L 10/13/15 07:50 Creat Clearance w eGFR > 60 (>60) 10/13/15 07:50 Calcium 9.8 mg/dL (8.5-10.1) 10/13/15 07:50 Total Bilirubin 0.2 mg/dL (0.2-1.0) 10/13/15 07:50 AST 14 U/L (15-37) L 10/13/15 07:50 ALT 24 U/L (12-78) 10/13/15 07:50 Alkaline Phosphatase 95 U/L (45-117) 10/13/15 07:50 Total Protein 7.4 g/dl (6.4-8.2) 10/13/15 07:50 Albumin 3.2 g/dl (3.4-5.0) L 10/13/15 07:50 Current Medications Generic Name Dose Route Start Last Admin Trade Name Freq PRN Reason Stop Dose Admin Acetaminophen 650 mg 09/09/15 09:29 10/15/15 10:23 Tylenol Oral Solution - GT 650 mg Q6H PRN Administration FEVER Albuterol Sulfate 1 amp 10/12/15 17:04 10/14/15 11:10 Ventolin 0.083% Nebulizer Soln - NEB 1 amp Q4H PRN Administration SHORT OF BREATH/WHEEZING Amino Acids 30 ml 09/15/15 17:30 10/16/15 10:29 Prostat Sugar-Free Packet - PO 30 ml BID@0800,1730 KWAKU Administration Amlodipine Besylate 10 mg 09/09/15 10:00 10/16/15 10:26 Norvasc - GT 10 mg DAILY KWAKU Administration Collagenase 1 applic 10/12/15 22:00 10/16/15 10:29 Santyl - TP 1 applic BID KWAKU Administration Enoxaparin Sodium 40 mg 10/15/15 10:00 10/15/15 10:24 Lovenox - SQ 40 mg DAILY KWAKU Administration Ibuprofen 200 mg 09/09/15 09:29 Motrin Oral Suspension - PO Q6H PRN FEVER Insulin Aspart 0 units 09/09/15 12:00 10/16/15 12:12 Novolog Vial SQ 2 units Q6HPO KWAKU Administration Protocol Insulin Detemir 28 units 09/09/15 22:00 10/15/15 22:35 Levemir Vial SQ 28 units HS KWAKU Administration Lisinopril 40 mg 09/09/15 10:00 10/16/15 10:26 Prinivil - GT 40 mg DAILY KWAKU Administration Metoprolol Tartrate 5 mg 09/09/15 09:29 Lopressor Injection - IVPB Q6H PRN HYPERTENSION Metoprolol Tartrate 100 mg/ 125 mg 09/17/15 10:00 10/16/15 10:27 Metoprolol Tartrate 25 mg GT 125 mg BID KWAKU Administration Multivitamins 5 ml 09/09/15 10:00 10/16/15 10:29 Thera-Plus - GT 5 ml DAILY KWAKU Administration Ondansetron HCl 4 mg 09/09/15 09:29 Zofran Injection - IVPB Q6H PRN NAUSEA Pantoprazole Sodium 40 mg 09/09/15 10:00 10/16/15 10:28 Protonix Packets For Oral Suspension - GT 40 mg DAILY KWAKU Administration Assessment/Plan: Patient is a 75 year old male with PMHx of HTN, IDDM, inguinal hernia who presented to the ED with diverticular bleed s/p Righ hemicolectomy with 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 Anoxic brain injury s/p brainstem CVAs - Mental status unchanged - awake - not following commands Respiratory failure secondary to anoxic brain injury - Cont trach collar - Albuterol neb PRN HTN - Continue lisinopril, metoprolol, amlodipine Multiple pressure ulcers - Stage III sacrum healing: Will change to Medihoney dressing daily - Stage II left ear healing: healed - Turn and position q2h IDDM - Levemir 28 units HS - ISS BGM ACHS F/E/N: - Tube feeds: Vital 1.5 @60ml/hr Prophylaxis: - SCDs bilaterally - Lovenox - PT for passive ROM. frequent passive ROM as well by nursing Dispo: Requires terminal clerk care CODE STATUS: DNR
[2015-10-16] MEDS: ENOXAPARIN NA (PORCINE) 40 MG/0.4 ML DISP.SYRIN SQ SCH (14:48)
[2015-10-16] MEDS: INSULIN DETEMIR 100 UNITS/ML MDV SQ SCH (21:23)
[2015-10-17] MEDS: INSULIN (NOVOLOG) ASPART 100 UNITS/ML 10ML VIAL SQ SCH ×5 (00:54→23:20)
[2015-10-17] MEDS: ENOXAPARIN NA (PORCINE) 40 MG/0.4 ML DISP.SYRIN SQ SCH (09:06)
[2015-10-17] MEDS: AMINO ACIDS/PROTEIN HYDROLYS SUGAR-FREE 30 ML PACKET PO SCH ×2 (09:06→17:49)
[2015-10-17] MEDS: amLODIPine BESYLATE 10 MG TABLET (FP) GT SCH (09:07)
[2015-10-17] MEDS: LISINOPRIL 20 MG TABLET (FP) GT SCH (09:07)
[2015-10-17] MEDS: METOPROLOL TARTRATE 100 MG, METOPROLOL TARTRATE 25 MG GT SCH ×2 (09:07→21:58)
[2015-10-17] MEDS: PANTOPRAZOLE SOD 40 MG SUSPENSION PACKET GT SCH (09:08)
[2015-10-17] MEDS: MULTIVITAMINS THERAPEUTIC GT SCH (09:08)
[2015-10-17] MEDS: COLLAGENASE CLOSTRIDIUM HIST. 30 GRAMS TUBE TP SCH ×2 (09:08→21:57)
[2015-10-17 09:19] LABS: MCH 28.3 pg (25.7-33.7); MCHC 32.8 g/dl (32.0-35.9); MEAN CELL VOLUME 86.2 fl (80-96); MEAN PLT VOLUME 7.6 fl (7.5-11.1); PLATELET COUNT 286 K/MM3 (134-434); RDW 16.2 % (11.9-15.9); WHITE BLOOD COUNT 9.2 K/mm3 (4.0-10.0)
[2015-10-17 10:04] LABS: CALCIUM 10.9 mg/dL (8.5-10.1); CREATININE 0.6 mg/dL (0.7-1.3)
--- NOTE | 2015-10-17 12:19 | PN ---
Progress Note (short form) - Note Progress Note: Hospitalist Progress Note SUBJECTIVE: Patient seen and examined at bedside. NAD noted. Awake. OBJECTIVE: Last Vital Signs Temp Pulse Resp BP Pulse Ox 97.6 F 87 18 139/85 98 10/16/15 17:10 10/17/15 10:31 10/17/15 06:00 10/17/15 06:00 10/17/15 10:31 GENERAL: no acute distress PULMONARY:Tach collar placed, rhonchi. CARDIOVASCULAR: nS1,S2, RRR, no RMG ABDOMINAL: soft, nontender, nondistended, normoactive bowel sounds. Peg tube CDI. EXTREMITIES: warm, well perfused, no edema. 2+ DP/PT bilaterally NEUROLOGICAL:spontaneous eye movement, non verbal CBCD WBC 9.2 K/mm3 (4.0-10.0) 10/17/15 08:00 RBC 3.43 M/mm3 (4.00-5.60) L 10/17/15 08:00 Hgb 9.7 GM/dL (11.7-16.9) L 10/17/15 08:00 Hct 29.6 % (35.4-49) L 10/17/15 08:00 MCV 86.2 fl (80-96) 10/17/15 08:00 MCHC 32.8 g/dl (32.0-35.9) 10/17/15 08:00 RDW 16.2 % (11.9-15.9) H 10/17/15 08:00 Plt Count 286 K/MM3 (134-434) 10/17/15 08:00 MPV 7.6 fl (7.5-11.1) 10/17/15 08:00 CMP Sodium 141 mmol/L (136-145) 10/17/15 08:00 Potassium 3.4 mmol/L (3.5-5.1) L 10/17/15 08:00 Chloride 101 mmol/L (98-107) 10/17/15 08:00 Carbon Dioxide 31 mmol/L (21-32) 10/17/15 08:00 Anion Gap 9 (8-16) 10/17/15 08:00 BUN 20 mg/dL (7-18) H 10/17/15 08:00 Creatinine 0.6 mg/dL (0.7-1.3) L 10/17/15 08:00 Creat Clearance w eGFR > 60 (>60) 10/13/15 07:50 Calcium 10.9 mg/dL (8.5-10.1) H 10/17/15 08:00 Total Bilirubin 0.2 mg/dL (0.2-1.0) 10/13/15 07:50 AST 14 U/L (15-37) L 10/13/15 07:50 ALT 24 U/L (12-78) 10/13/15 07:50 Alkaline Phosphatase 95 U/L (45-117) 10/13/15 07:50 Total Protein 7.4 g/dl (6.4-8.2) 10/13/15 07:50 Albumin 3.2 g/dl (3.4-5.0) L 10/13/15 07:50 Current Medications Generic Name Dose Route Start Last Admin Trade Name Freq PRN Reason Stop Dose Admin Acetaminophen 650 mg 09/09/15 09:29 10/15/15 10:23 Tylenol Oral Solution - GT 650 mg Q6H PRN Administration FEVER Albuterol Sulfate 1 amp 10/12/15 17:04 10/14/15 11:10 Ventolin 0.083% Nebulizer Soln - NEB 1 amp Q4H PRN Administration SHORT OF BREATH/WHEEZING Amino Acids 30 ml 09/15/15 17:30 10/17/15 09:06 Prostat Sugar-Free Packet - PO 30 ml BID@0800,1730 KWAKU Administration Amlodipine Besylate 10 mg 09/09/15 10:00 10/17/15 09:07 Norvasc - GT 10 mg DAILY KWAKU Administration Collagenase 1 applic 10/12/15 22:00 10/17/15 09:08 Santyl - TP 1 applic BID KWAKU Administration Enoxaparin Sodium 40 mg 10/15/15 10:00 10/17/15 09:06 Lovenox - SQ 40 mg DAILY KWAKU Administration Ibuprofen 200 mg 09/09/15 09:29 Motrin Oral Suspension - PO Q6H PRN FEVER Insulin Aspart 0 units 09/09/15 12:00 10/17/15 12:12 Novolog Vial SQ 2 units Q6HPO KWAKU Administration Protocol Insulin Detemir 28 units 09/09/15 22:00 10/16/15 21:23 Levemir Vial SQ 28 units HS KWAKU Administration Lisinopril 40 mg 09/09/15 10:00 10/17/15 09:07 Prinivil - GT 40 mg DAILY KWAKU Administration Metoprolol Tartrate 5 mg 09/09/15 09:29 Lopressor Injection - IVPB Q6H PRN HYPERTENSION Metoprolol Tartrate 100 mg/ 125 mg 09/17/15 10:00 10/17/15 09:07 Metoprolol Tartrate 25 mg GT 125 mg BID KWAKU Administration Multivitamins 5 ml 09/09/15 10:00 10/17/15 09:08 Thera-Plus - GT 5 ml DAILY KWAKU Administration Ondansetron HCl 4 mg 09/09/15 09:29 Zofran Injection - IVPB Q6H PRN NAUSEA Pantoprazole Sodium 40 mg 09/09/15 10:00 10/17/15 09:08 Protonix Packets For Oral Suspension - GT 40 mg DAILY KWAKU Administration Potassium Chloride 20 meq 10/17/15 10:43 Kcl Oral Solution - PO 10/17/15 10:44 ONCE ONE Assessment/Plan: Patient is a 75 year old male with PMHx of HTN, IDDM, inguinal hernia who presented to the ED with diverticular bleed s/p Righ hemicolectomy with 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 Anoxic brain injury s/p brainstem CVAs - Mental status unchanged - awake - not following commands Respiratory failure secondary to anoxic brain injury - Cont trach collar - Albuterol neb PRN HTN - Continue lisinopril, metoprolol, amlodipine Multiple pressure ulcers - Stage III sacrum healing: Medihoney dressing daily - Stage II left ear healing: healed - Turn and position q2h IDDM - Levemir 28 units HS - ISS BGM ACHS F/E/N: - Tube feeds: Vital 1.5 @60ml/hr - hypokalemia-- repleted Prophylaxis: - SCDs bilaterally - Lovenox - PT for passive ROM. frequent passive ROM as well by nursing Dispo: Requires termite exterminator care CODE STATUS: DNR
[2015-10-17] MEDS: INSULIN DETEMIR 100 UNITS/ML MDV SQ SCH (21:56)
[2015-10-18] MEDS: INSULIN (NOVOLOG) ASPART 100 UNITS/ML 10ML VIAL SQ SCH ×4 (06:35→23:10)
[2015-10-18] MEDS: AMINO ACIDS/PROTEIN HYDROLYS SUGAR-FREE 30 ML PACKET PO SCH ×2 (09:00→17:45)
--- NOTE | 2015-10-18 10:20 | PN ---
Progress Note (short form) - Note Progress Note: Subjective: Pt seen and examined at bedside. Appears comfortable. Objective: Last Vital Signs Temp Pulse Resp BP Pulse Ox 98.8 F 89 20 137/91 98 10/18/15 06:10 10/18/15 06:15 10/18/15 06:10 10/18/15 06:10 10/18/15 06:15 PE: Neuro: spontaneous eye movement, non verbal Pulm: TC, scattered ronchi anteriorly Cv: s1 s2 rrr no mrg Abd: peg tube CDI, soft, +BS Ext: LUE edema+1, no lower ext edema, warm, non purposeful movement of RUE, no LUE movement Current Medications Generic Name Dose Route Start Last Admin Trade Name Freq PRN Reason Stop Dose Admin Acetaminophen 650 mg 09/09/15 09:29 10/15/15 10:23 Tylenol Oral Solution - GT 650 mg Q6H PRN Administration FEVER Albuterol Sulfate 1 amp 10/12/15 17:04 10/14/15 11:10 Ventolin 0.083% Nebulizer Soln - NEB 1 amp Q4H PRN Administration SHORT OF BREATH/WHEEZING Amino Acids 30 ml 09/15/15 17:30 10/17/15 17:49 Prostat Sugar-Free Packet - PO 30 ml BID@0800,1730 KWAKU Administration Amlodipine Besylate 10 mg 09/09/15 10:00 10/17/15 09:07 Norvasc - GT 10 mg DAILY KWAKU Administration Collagenase 1 applic 10/12/15 22:00 10/17/15 21:57 Santyl - TP 1 applic BID KWAKU Administration Enoxaparin Sodium 40 mg 10/15/15 10:00 10/17/15 09:06 Lovenox - SQ 40 mg DAILY KWAKU Administration Ibuprofen 200 mg 09/09/15 09:29 Motrin Oral Suspension - PO Q6H PRN FEVER Insulin Aspart 0 units 09/09/15 12:00 10/18/15 06:35 Novolog Vial SQ 2 units Q6HPO KWAKU Administration Protocol Insulin Detemir 28 units 09/09/15 22:00 10/17/15 21:56 Levemir Vial SQ 28 units HS KWAKU Administration Lisinopril 40 mg 09/09/15 10:00 10/17/15 09:07 Prinivil - GT 40 mg DAILY KWAKU Administration Metoprolol Tartrate 5 mg 09/09/15 09:29 Lopressor Injection - IVPB Q6H PRN HYPERTENSION Metoprolol Tartrate 100 mg/ 125 mg 09/17/15 10:00 10/17/15 21:58 Metoprolol Tartrate 25 mg GT 125 mg BID KWAKU Administration Multivitamins 5 ml 09/09/15 10:00 10/17/15 09:08 Thera-Plus - GT 5 ml DAILY KWAKU Administration Ondansetron HCl 4 mg 09/09/15 09:29 Zofran Injection - IVPB Q6H PRN NAUSEA Pantoprazole Sodium 40 mg 09/09/15 10:00 10/17/15 09:08 Protonix Packets For Oral Suspension - GT 40 mg DAILY KWAKU Administration Assessment: 75 year old male with PMHx of HTN, IDDM, inguinal hernia who presented to the ED with diverticular bleed s/p Right hemicolectomy with 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 Plan: 1. Respiratory failure secondary to anoxic brain injury - Trach collar - Albuterol neb PRN 2. HTN - Lisinopril/Metoprolol/Amlodipine 3. Multiple pressure ulcers - Stage III sacrum healing: Collagenase bid with Allevyn dressing - Stage II left ear healing: Silvadene - Turn and position q2h 4. IDDM - Levemir 28 units HS - ISS BGM ACHS 5. F/E/N: - Tube feeds: Vital 1.5 @60ml/hr 6. Prophylaxis: - SCDs bilaterally - Lovenox CODE STATUS: DNR CODE STATUS: DNR
[2015-10-18] MEDS: ENOXAPARIN NA (PORCINE) 40 MG/0.4 ML DISP.SYRIN SQ SCH (11:58)
[2015-10-18] MEDS: METOPROLOL TARTRATE 100 MG, METOPROLOL TARTRATE 25 MG GT SCH ×2 (11:58→22:58)
[2015-10-18] MEDS: MULTIVITAMINS THERAPEUTIC GT SCH (11:59)
[2015-10-18] MEDS: COLLAGENASE CLOSTRIDIUM HIST. 30 GRAMS TUBE TP SCH ×2 (11:59→23:00)
[2015-10-18] MEDS: LISINOPRIL 20 MG TABLET (FP) GT SCH (11:59)
[2015-10-18] MEDS: PANTOPRAZOLE SOD 40 MG SUSPENSION PACKET GT SCH (11:59)
[2015-10-18] MEDS: amLODIPine BESYLATE 10 MG TABLET (FP) GT SCH (11:59)
[2015-10-18] MEDS: INSULIN DETEMIR 100 UNITS/ML MDV SQ SCH (22:58)
[2015-10-19] MEDS: INSULIN (NOVOLOG) ASPART 100 UNITS/ML 10ML VIAL SQ SCH ×3 (05:36→17:02)
[2015-10-19] MEDS: ENOXAPARIN NA (PORCINE) 40 MG/0.4 ML DISP.SYRIN SQ SCH (09:27)
[2015-10-19] MEDS: METOPROLOL TARTRATE 100 MG, METOPROLOL TARTRATE 25 MG GT SCH ×2 (09:27→22:29)
[2015-10-19] MEDS: AMINO ACIDS/PROTEIN HYDROLYS SUGAR-FREE 30 ML PACKET PO SCH ×2 (09:27→17:02)
[2015-10-19] MEDS: MULTIVITAMINS THERAPEUTIC GT SCH (09:27)
[2015-10-19] MEDS: amLODIPine BESYLATE 10 MG TABLET (FP) GT SCH (09:28)
[2015-10-19] MEDS: PANTOPRAZOLE SOD 40 MG SUSPENSION PACKET GT SCH (09:28)
[2015-10-19] MEDS: LISINOPRIL 20 MG TABLET (FP) GT SCH (09:28)
[2015-10-19] MEDS: COLLAGENASE CLOSTRIDIUM HIST. 30 GRAMS TUBE TP SCH ×2 (09:28→22:29)
--- NOTE | 2015-10-19 12:24 | PN ---
Progress Note (short form) - Note Progress Note: Subjective: Pt seen and examined at bedside. His eyes open to verbal stimuli. He is not following commands. Per RN he was dangled this AM. Objective: Last Vital Signs Temp Pulse Resp BP Pulse Ox 99.7 F H 105 H 20 140/91 98 10/19/15 09:32 10/19/15 10:50 10/19/15 09:32 10/19/15 09:32 10/19/15 10:50 PE: Neuro: spontaneous eye movement, non verbal Pulm: TC, clear anteriorly Cv: s1 s2 rrr no mrg Abd: peg tube CDI, soft, +BS Ext: LUE edema+1, no lower ext edema, warm, non purposeful movement of RUE, no LUE movement Current Medications Generic Name Dose Route Start Last Admin Trade Name Freq PRN Reason Stop Dose Admin Acetaminophen 650 mg 09/09/15 09:29 10/15/15 10:23 Tylenol Oral Solution - GT 650 mg Q6H PRN Administration FEVER Albuterol Sulfate 1 amp 10/12/15 17:04 10/14/15 11:10 Ventolin 0.083% Nebulizer Soln - NEB 1 amp Q4H PRN Administration SHORT OF BREATH/WHEEZING Amino Acids 30 ml 09/15/15 17:30 10/19/15 09:27 Prostat Sugar-Free Packet - PO 30 ml BID@0800,1730 KWAKU Administration Amlodipine Besylate 10 mg 09/09/15 10:00 10/19/15 09:28 Norvasc - GT 10 mg DAILY KWAKU Administration Collagenase 1 applic 10/12/15 22:00 10/19/15 09:28 Santyl - TP 1 applic BID KWAKU Administration Enoxaparin Sodium 40 mg 10/15/15 10:00 10/19/15 09:27 Lovenox - SQ 40 mg DAILY KWAKU Administration Ibuprofen 200 mg 09/09/15 09:29 Motrin Oral Suspension - PO Q6H PRN FEVER Insulin Aspart 0 units 09/09/15 12:00 10/19/15 12:15 Novolog Vial SQ 2 units Q6HPO KWAKU Administration Protocol Insulin Detemir 28 units 09/09/15 22:00 10/18/15 22:58 Levemir Vial SQ 28 units HS KWAKU Administration Lisinopril 40 mg 09/09/15 10:00 10/19/15 09:28 Prinivil - GT 40 mg DAILY KWAKU Administration Metoprolol Tartrate 5 mg 09/09/15 09:29 Lopressor Injection - IVPB Q6H PRN HYPERTENSION Metoprolol Tartrate 100 mg/ 125 mg 09/17/15 10:00 10/19/15 09:27 Metoprolol Tartrate 25 mg GT 125 mg BID KWAKU Administration Multivitamins 5 ml 09/09/15 10:00 10/19/15 09:27 Thera-Plus - GT 5 ml DAILY KWAKU Administration Ondansetron HCl 4 mg 09/09/15 09:29 Zofran Injection - IVPB Q6H PRN NAUSEA Pantoprazole Sodium 40 mg 09/09/15 10:00 10/19/15 09:28 Protonix Packets For Oral Suspension - GT 40 mg DAILY KWAKU Administration Assessment: 75 year old male with PMHx of HTN, IDDM, inguinal hernia who presented to the ED with diverticular bleed s/p Right hemicolectomy with 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 Plan: 1. Respiratory failure secondary to anoxic brain injury - Trach collar - Albuterol neb PRN 2. HTN - Lisinopril/Metoprolol/Amlodipine 3. Multiple pressure ulcers - Stage III sacrum healing: Collagenase bid with Allevyn dressing - Stage II left ear healing: Silvadene - Turn and position q2h 4. IDDM - Levemir 28 units HS - ISS BGM ACHS 5. F/E/N: - Tube feeds: Vital 1.5 @60ml/hr 6. Prophylaxis: - SCDs bilaterally - Lovenox CODE STATUS: DNR
[2015-10-19] MEDS: INSULIN DETEMIR 100 UNITS/ML MDV SQ SCH (22:28)
[2015-10-20] MEDS: INSULIN (NOVOLOG) ASPART 100 UNITS/ML 10ML VIAL SQ SCH ×4 (00:27→17:35)
[2015-10-20] MEDS: AMINO ACIDS/PROTEIN HYDROLYS SUGAR-FREE 30 ML PACKET PO SCH ×2 (10:00→17:36)
[2015-10-20] MEDS: MULTIVITAMINS THERAPEUTIC GT SCH (11:00)
[2015-10-20] MEDS: METOPROLOL TARTRATE 100 MG, METOPROLOL TARTRATE 25 MG GT SCH ×2 (11:00→21:39)
[2015-10-20] MEDS: LISINOPRIL 20 MG TABLET (FP) GT SCH (11:00)
[2015-10-20] MEDS: PANTOPRAZOLE SOD 40 MG SUSPENSION PACKET GT SCH (11:00)
[2015-10-20] MEDS: amLODIPine BESYLATE 10 MG TABLET (FP) GT SCH (11:00)
[2015-10-20] MEDS: ENOXAPARIN NA (PORCINE) 40 MG/0.4 ML DISP.SYRIN SQ SCH (11:00)
[2015-10-20] MEDS: COLLAGENASE CLOSTRIDIUM HIST. 30 GRAMS TUBE TP SCH ×2 (11:36→21:40)
[2015-10-20] MEDS: INSULIN DETEMIR 100 UNITS/ML MDV SQ SCH (21:39)
[2015-10-21] MEDS: INSULIN (NOVOLOG) ASPART 100 UNITS/ML 10ML VIAL SQ SCH ×4 (00:15→17:15)
[2015-10-21 08:03] LABS: BASOPHIL 0.9 % (0-2.0); EOSINOPHIL 5.8 % (0-4.5); MCH 27.7 pg (25.7-33.7); MCHC 32.1 g/dl (32.0-35.9); MEAN CELL VOLUME 86.3 fl (80-96); MEAN PLT VOLUME 8.2 fl (7.5-11.1); NEUTROPHILS 57.4 % (42.8-82.8); PLATELET COUNT 274 K/MM3 (134-434); RDW 16.3 % (11.9-15.9); WHITE BLOOD COUNT 8.4 K/mm3 (4.0-10.0)
[2015-10-21 08:21] LABS: ALBUMIN 3.3 g/dl (3.4-5.0); ANION GAP 8 (8-16); BILIRUBIN,TOTAL 0.2 mg/dL (0.2-1.0); CALCIUM 10.5 mg/dL (8.5-10.1); CO2 32 mmol/L (21-32); CREATININE 0.6 mg/dL (0.7-1.3); GLUCOSE,RANDOM 133 mg/dL (74-106); SGOT/AST 17 U/L (15-37); SGPT/ALT 30 U/L (12-78); TOT PROT 7.9 g/dl (6.4-8.2)
[2015-10-21 08:22] LABS: ALK PHOS 91 U/L (45-117)
[2015-10-21] MEDS: AMINO ACIDS/PROTEIN HYDROLYS SUGAR-FREE 30 ML PACKET PO SCH ×2 (09:14→17:15)
[2015-10-21] MEDS: amLODIPine BESYLATE 10 MG TABLET (FP) GT SCH (09:15)
[2015-10-21] MEDS: METOPROLOL TARTRATE 100 MG, METOPROLOL TARTRATE 25 MG GT SCH ×2 (09:15→21:17)
[2015-10-21] MEDS: ENOXAPARIN NA (PORCINE) 40 MG/0.4 ML DISP.SYRIN SQ SCH (09:15)
[2015-10-21] MEDS: MULTIVITAMINS THERAPEUTIC GT SCH (09:16)
[2015-10-21] MEDS: LISINOPRIL 20 MG TABLET (FP) GT SCH (09:16)
[2015-10-21] MEDS: PANTOPRAZOLE SOD 40 MG SUSPENSION PACKET GT SCH (09:16)
[2015-10-21] MEDS: COLLAGENASE CLOSTRIDIUM HIST. 30 GRAMS TUBE TP SCH ×2 (12:04→21:18)
--- NOTE | 2015-10-21 13:29 | PN ---
Progress Note (short form) - Note Progress Note: Subjective: Pt seen and examined at bedside. He has increased secretions, suction at the bedside by RN. Objective: Last Vital Signs Temp Pulse Resp BP Pulse Ox 98.6 F 96 H 18 139/90 97 10/21/15 10:00 10/21/15 10:00 10/21/15 10:00 10/21/15 10:00 10/20/15 22:30 PE: Neuro: spontaneous eye movement, non verbal Pulm: TC 28%. + secretions Cv: s1 s2 rrr no mrg Abd: peg tube CDI, soft, +BS Ext: LUE edema+1, no lower ext edema, warm, non purposeful movement of RUE, no LUE movement CBCD WBC 8.4 K/mm3 (4.0-10.0) 10/21/15 07:20 RBC 3.61 M/mm3 (4.00-5.60) L 10/21/15 07:20 Hgb 10.0 GM/dL (11.7-16.9) L 10/21/15 07:20 Hct 31.2 % (35.4-49) L 10/21/15 07:20 MCV 86.3 fl (80-96) 10/21/15 07:20 MCHC 32.1 g/dl (32.0-35.9) 10/21/15 07:20 RDW 16.3 % (11.9-15.9) H 10/21/15 07:20 Plt Count 274 K/MM3 (134-434) 10/21/15 07:20 MPV 8.2 fl (7.5-11.1) 10/21/15 07:20 CMP Sodium 142 mmol/L (136-145) 10/21/15 07:20 Potassium 3.6 mmol/L (3.5-5.1) 10/21/15 07:20 Chloride 102 mmol/L (98-107) 10/21/15 07:20 Carbon Dioxide 32 mmol/L (21-32) 10/21/15 07:20 Anion Gap 8 (8-16) 10/21/15 07:20 BUN 19 mg/dL (7-18) H 10/21/15 07:20 Creatinine 0.6 mg/dL (0.7-1.3) L 10/21/15 07:20 Creat Clearance w eGFR > 60 (>60) 10/21/15 07:20 Calcium 10.5 mg/dL (8.5-10.1) H 10/21/15 07:20 Total Bilirubin 0.2 mg/dL (0.2-1.0) 10/21/15 07:20 AST 17 U/L (15-37) D 10/21/15 07:20 ALT 30 U/L (12-78) D 10/21/15 07:20 Alkaline Phosphatase 91 U/L (45-117) 10/21/15 07:20 Total Protein 7.9 g/dl (6.4-8.2) 10/21/15 07:20 Albumin 3.3 g/dl (3.4-5.0) L 10/21/15 07:20 Current Medications Generic Name Dose Route Start Last Admin Trade Name Freq PRN Reason Stop Dose Admin Acetaminophen 650 mg 09/09/15 09:29 10/15/15 10:23 Tylenol Oral Solution - GT 650 mg Q6H PRN Administration FEVER Albuterol Sulfate 1 amp 10/19/15 17:04 Ventolin 0.083% Nebulizer Soln - NEB Q4H PRN SHORT OF BREATH/WHEEZING Amino Acids 30 ml 09/15/15 17:30 10/21/15 09:14 Prostat Sugar-Free Packet - PO 30 ml BID@0800,1730 KWAKU Administration Amlodipine Besylate 10 mg 09/09/15 10:00 10/21/15 09:15 Norvasc - GT 10 mg DAILY KWAKU Administration Collagenase 1 applic 10/12/15 22:00 10/21/15 12:04 Santyl - TP 1 applic BID KWAKU Administration Enoxaparin Sodium 40 mg 10/15/15 10:00 10/21/15 09:15 Lovenox - SQ 40 mg DAILY KWAKU Administration Ibuprofen 200 mg 09/09/15 09:29 Motrin Oral Suspension - PO Q6H PRN FEVER Insulin Aspart 0 units 09/09/15 12:00 10/21/15 12:03 Novolog Vial SQ 2 units Q6HPO KWAKU Administration Protocol Insulin Detemir 28 units 09/09/15 22:00 10/20/15 21:39 Levemir Vial SQ 28 units HS KWAKU Administration Lisinopril 40 mg 09/09/15 10:00 10/21/15 09:16 Prinivil - GT 40 mg DAILY KWAKU Administration Metoprolol Tartrate 5 mg 09/09/15 09:29 Lopressor Injection - IVPB Q6H PRN HYPERTENSION Metoprolol Tartrate 100 mg/ 125 mg 09/17/15 10:00 10/21/15 09:15 Metoprolol Tartrate 25 mg GT 125 mg BID KWAKU Administration Multivitamins 5 ml 09/09/15 10:00 10/21/15 09:16 Thera-Plus - GT 5 ml DAILY KWAKU Administration Ondansetron HCl 4 mg 09/09/15 09:29 Zofran Injection - IVPB Q6H PRN NAUSEA Pantoprazole Sodium 40 mg 09/09/15 10:00 10/21/15 09:16 Protonix Packets For Oral Suspension - GT 40 mg DAILY KWAKU Administration Assessment: 75 year old male with PMHx of HTN, IDDM, inguinal hernia who presented to the ED with diverticular bleed s/p Right hemicolectomy with 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 Plan: 1. Respiratory failure secondary to anoxic brain injury - Trach collar - Albuterol neb PRN 2. HTN - Lisinopril/Metoprolol/Amlodipine 3. Multiple pressure ulcers - Stage III sacrum healing: Collagenase bid with Allevyn dressing - Stage II left ear healing: Silvadene - Turn and position q2h 4. IDDM - Levemir 28 units HS - ISS BGM ACHS 5. F/E/N: - Tube feeds: Vital 1.5 @60ml/hr 6. Prophylaxis: - SCDs bilaterally - Lovenox CODE STATUS: DNR
[2015-10-21] MEDS: INSULIN DETEMIR 100 UNITS/ML MDV SQ SCH (22:40)
[2015-10-22] MEDS: INSULIN (NOVOLOG) ASPART 100 UNITS/ML 10ML VIAL SQ SCH ×4 (00:38→17:54)
[2015-10-22] MEDS: AMINO ACIDS/PROTEIN HYDROLYS SUGAR-FREE 30 ML PACKET PO SCH ×2 (08:54→17:54)
[2015-10-22] MEDS: MULTIVITAMINS THERAPEUTIC GT SCH (09:00)
[2015-10-22] MEDS: PANTOPRAZOLE SOD 40 MG SUSPENSION PACKET GT SCH (09:00)
[2015-10-22] MEDS: amLODIPine BESYLATE 10 MG TABLET (FP) GT SCH (09:00)
[2015-10-22] MEDS: LISINOPRIL 20 MG TABLET (FP) GT SCH (09:00)
[2015-10-22] MEDS: ENOXAPARIN NA (PORCINE) 40 MG/0.4 ML DISP.SYRIN SQ SCH (09:01)
[2015-10-22] MEDS: METOPROLOL TARTRATE 100 MG, METOPROLOL TARTRATE 25 MG GT SCH ×2 (09:01→21:55)
[2015-10-22] MEDS: COLLAGENASE CLOSTRIDIUM HIST. 30 GRAMS TUBE TP SCH ×2 (11:58→21:55)
--- NOTE | 2015-10-22 13:24 | PN ---
Progress Note (short form) - Note Progress Note: Subjective: Pt seen and examined at bedside. He is awake, he is comfortable. Objective: Last Vital Signs Temp Pulse Resp BP Pulse Ox 98.9 F 81 20 142/86 99 10/22/15 10:00 10/22/15 10:44 10/22/15 10:00 10/22/15 10:00 10/22/15 10:44 PE: Neuro: spontaneous eye movement, non verbal Pulm: TC 28%, clear anteriorly Cv: s1 s2 rrr no mrg Abd: peg tube CDI, soft, +BS Ext: LUE edema+1, no lower ext edema, warm, non purposeful movement of RUE, no LUE movement Current Medications Generic Name Dose Route Start Last Admin Trade Name Freq PRN Reason Stop Dose Admin Acetaminophen 650 mg 09/09/15 09:29 10/15/15 10:23 Tylenol Oral Solution - GT 650 mg Q6H PRN Administration FEVER Albuterol Sulfate 1 amp 10/19/15 17:04 Ventolin 0.083% Nebulizer Soln - NEB Q4H PRN SHORT OF BREATH/WHEEZING Amino Acids 30 ml 09/15/15 17:30 10/22/15 08:54 Prostat Sugar-Free Packet - PO 30 ml BID@0800,1730 KWAKU Administration Amlodipine Besylate 10 mg 09/09/15 10:00 10/22/15 09:00 Norvasc - GT 10 mg DAILY KWAKU Administration Collagenase 1 applic 10/12/15 22:00 10/22/15 11:58 Santyl - TP 1 applic BID KWAKU Administration Enoxaparin Sodium 40 mg 10/15/15 10:00 10/22/15 09:01 Lovenox - SQ 40 mg DAILY KWAKU Administration Ibuprofen 200 mg 09/09/15 09:29 Motrin Oral Suspension - PO Q6H PRN FEVER Insulin Aspart 0 units 09/09/15 12:00 10/22/15 11:58 Novolog Vial SQ 2 units Q6HPO KWAKU Administration Protocol Insulin Detemir 28 units 09/09/15 22:00 10/21/15 22:40 Levemir Vial SQ 28 units HS KWAKU Administration Lisinopril 40 mg 09/09/15 10:00 10/22/15 09:00 Prinivil - GT 40 mg DAILY KWAKU Administration Metoprolol Tartrate 5 mg 09/09/15 09:29 Lopressor Injection - IVPB Q6H PRN HYPERTENSION Metoprolol Tartrate 100 mg/ 125 mg 09/17/15 10:00 10/22/15 09:01 Metoprolol Tartrate 25 mg GT 125 mg BID KWAKU Administration Multivitamins 5 ml 09/09/15 10:00 10/22/15 09:00 Thera-Plus - GT 5 ml DAILY KWAKU Administration Ondansetron HCl 4 mg 09/09/15 09:29 Zofran Injection - IVPB Q6H PRN NAUSEA Pantoprazole Sodium 40 mg 09/09/15 10:00 10/22/15 09:00 Protonix Packets For Oral Suspension - GT 40 mg DAILY KWAKU Administration Assessment: 75 year old male with PMHx of HTN, IDDM, inguinal hernia who presented to the ED with diverticular bleed s/p Right hemicolectomy with 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 Plan: 1. Respiratory failure secondary to anoxic brain injury - Cont trach collar - Albuterol neb PRN 2. HTN - Lisinopril/Metoprolol/Amlodipine 3. Multiple pressure ulcers - Stage III sacrum healing: Collagenase bid with Allevyn dressing - Stage II left ear healing: Silvadene - Turn and position q2h 4. IDDM - Levemir 28 units HS - ISS BGM ACHS 5. F/E/N: - Tube feeds: Vital 1.5 @60ml/hr 6. Prophylaxis: - SCDs bilaterally - Lovenox CODE STATUS: DNR
[2015-10-22] MEDS: INSULIN DETEMIR 100 UNITS/ML MDV SQ SCH (21:54)
[2015-10-23] MEDS: INSULIN (NOVOLOG) ASPART 100 UNITS/ML 10ML VIAL SQ SCH ×4 (00:02→18:13)
[2015-10-23] MEDS: ALBUTEROL SO4 0.083% IH SOL 2.5 MG/3 ML VIAL.NEB. NEB PRN ×2 (06:20→09:15)
[2015-10-23] MEDS: AMINO ACIDS/PROTEIN HYDROLYS SUGAR-FREE 30 ML PACKET PO SCH ×2 (08:49→18:14)
[2015-10-23] MEDS: amLODIPine BESYLATE 10 MG TABLET (FP) GT SCH (10:47)
[2015-10-23] MEDS: LISINOPRIL 20 MG TABLET (FP) GT SCH (10:47)
[2015-10-23] MEDS: ENOXAPARIN NA (PORCINE) 40 MG/0.4 ML DISP.SYRIN SQ SCH (10:48)
[2015-10-23] MEDS: COLLAGENASE CLOSTRIDIUM HIST. 30 GRAMS TUBE TP SCH ×2 (10:48→21:35)
[2015-10-23] MEDS: MULTIVITAMINS THERAPEUTIC GT SCH (10:48)
[2015-10-23] MEDS: METOPROLOL TARTRATE 100 MG, METOPROLOL TARTRATE 25 MG GT SCH ×2 (10:48→21:21)
[2015-10-23] MEDS: PANTOPRAZOLE SOD 40 MG SUSPENSION PACKET GT SCH (10:48)
--- NOTE | 2015-10-23 14:04 | PN ---
Progress Note (short form) - Note Progress Note: SUBJECTIVE: Patient seen and examined at bedside. Opened eyes to physical touch. Non-purposeful head movements. OBJECTIVE: Vitals Vital Signs Period Temp Pulse Resp BP Sys/Santiago Pulse Ox Last 24 Hr 97.9 F-98.8 F 77-106 18-22 124-156/85-92 96-98 GENERAL: The patient is somnolent, arousable, opens eyes to physical stimulation. No signs of pain. HEAD: Normal with no signs of trauma. EYES: Pupils equal, round and reactive to light, extraocular movements intact, sclera anicteric, conjunctiva clear. ENT: Ears normal, nares patent, oropharynx clear without exudates. Moist mucous membranes. Trach collar. NECK: Normal range of motion, supple without lymphadenopathy, JVD, or masses. LUNGS: Breath sounds equal, clear to auscultation bilaterally. No wheezes, and no crackles. HEART: Regular rate and rhythm, normal S1 and S2 without murmur, rub or gallop. ABDOMEN: Soft, nontender, normoactive bowel sounds. No guarding, no rebound. No masses. UPPER EXTREMITIES: 2+ pulses, warm, well-perfused, no edema. LOWER EXTREMITIES: 2+ pulses, warm, well-perfused, no edema. NEUROLOGICAL: Unable to assess. CBCD WBC 8.4 K/mm3 (4.0-10.0) 10/21/15 07:20 RBC 3.61 M/mm3 (4.00-5.60) L 10/21/15 07:20 Hgb 10.0 GM/dL (11.7-16.9) L 10/21/15 07:20 Hct 31.2 % (35.4-49) L 10/21/15 07:20 MCV 86.3 fl (80-96) 10/21/15 07:20 MCHC 32.1 g/dl (32.0-35.9) 10/21/15 07:20 RDW 16.3 % (11.9-15.9) H 10/21/15 07:20 Plt Count 274 K/MM3 (134-434) 10/21/15 07:20 MPV 8.2 fl (7.5-11.1) 10/21/15 07:20 CMP Sodium 142 mmol/L (136-145) 10/21/15 07:20 Potassium 3.6 mmol/L (3.5-5.1) 10/21/15 07:20 Chloride 102 mmol/L (98-107) 10/21/15 07:20 Carbon Dioxide 32 mmol/L (21-32) 10/21/15 07:20 Anion Gap 8 (8-16) 10/21/15 07:20 BUN 19 mg/dL (7-18) H 10/21/15 07:20 Creatinine 0.6 mg/dL (0.7-1.3) L 10/21/15 07:20 Creat Clearance w eGFR > 60 (>60) 10/21/15 07:20 Calcium 10.5 mg/dL (8.5-10.1) H 10/21/15 07:20 Total Bilirubin 0.2 mg/dL (0.2-1.0) 10/21/15 07:20 AST 17 U/L (15-37) D 10/21/15 07:20 ALT 30 U/L (12-78) D 10/21/15 07:20 Alkaline Phosphatase 91 U/L (45-117) 10/21/15 07:20 Total Protein 7.9 g/dl (6.4-8.2) 10/21/15 07:20 Albumin 3.3 g/dl (3.4-5.0) L 10/21/15 07:20 Current Medications Generic Name Dose Route Start Last Admin Trade Name Freq PRN Reason Stop Dose Admin Acetaminophen 650 mg 09/09/15 09:29 10/15/15 10:23 Tylenol Oral Solution - GT 650 mg Q6H PRN Administration FEVER Albuterol Sulfate 1 amp 10/19/15 17:04 10/23/15 09:15 Ventolin 0.083% Nebulizer Soln - NEB 1 amp Q4H PRN Administration SHORT OF BREATH/WHEEZING Amino Acids 30 ml 09/15/15 17:30 10/23/15 18:14 Prostat Sugar-Free Packet - PO 30 ml BID@0800,1730 KWAKU Administration Amlodipine Besylate 10 mg 09/09/15 10:00 10/23/15 10:47 Norvasc - GT 10 mg DAILY KWAKU Administration Collagenase 1 applic 10/12/15 22:00 10/23/15 10:48 Santyl - TP 1 applic BID KWAKU Administration Enoxaparin Sodium 40 mg 10/15/15 10:00 10/23/15 10:48 Lovenox - SQ 40 mg DAILY KWAKU Administration Ibuprofen 200 mg 09/09/15 09:29 Motrin Oral Suspension - PO Q6H PRN FEVER Insulin Aspart 0 units 09/09/15 12:00 10/23/15 18:13 Novolog Vial SQ 2 units Q6HPO KWAKU Administration Protocol Insulin Detemir 28 units 09/09/15 22:00 10/22/15 21:54 Levemir Vial SQ 28 units HS KWAKU Administration Lisinopril 40 mg 09/09/15 10:00 10/23/15 10:47 Prinivil - GT 40 mg DAILY KWAKU Administration Metoprolol Tartrate 5 mg 09/09/15 09:29 Lopressor Injection - IVPB Q6H PRN HYPERTENSION Metoprolol Tartrate 100 mg/ 125 mg 09/17/15 10:00 10/23/15 10:48 Metoprolol Tartrate 25 mg GT 125 mg BID KWAKU Administration Multivitamins 5 ml 09/09/15 10:00 10/23/15 10:48 Thera-Plus - GT 5 ml DAILY KWAKU Administration Ondansetron HCl 4 mg 09/09/15 09:29 Zofran Injection - IVPB Q6H PRN NAUSEA Pantoprazole Sodium 40 mg 09/09/15 10:00 10/23/15 10:48 Protonix Packets For Oral Suspension - GT 40 mg DAILY KWAKU Administration Assessment: 75 year old male with PMHx of HTN, IDDM, inguinal hernia who presented to the ED with diverticular bleed s/p Right hemicolectomy with 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 Plan: 1. Respiratory failure secondary to anoxic brain injury - Cont trach collar - Albuterol neb PRN 2. HTN - Lisinopril/Metoprolol/Amlodipine 3. Multiple pressure ulcers - Stage III sacrum healing: Collagenase bid with Allevyn dressing - Stage II left ear healing: Silvadene - Turn and position q2h 4. IDDM - Levemir 28 units HS - ISS BGM ACHS 5. F/E/N: - Tube feeds: Vital 1.5 @60ml/hr 6. Prophylaxis: - SCDs bilaterally - Lovenox CODE STATUS: DNR
[2015-10-23] MEDS: INSULIN DETEMIR 100 UNITS/ML MDV SQ SCH (21:24)
[2015-10-24] MEDS: INSULIN (NOVOLOG) ASPART 100 UNITS/ML 10ML VIAL SQ SCH ×5 (00:17→23:43)
[2015-10-24] MEDS: PANTOPRAZOLE SOD 40 MG SUSPENSION PACKET GT SCH (09:39)
[2015-10-24] MEDS: METOPROLOL TARTRATE 100 MG, METOPROLOL TARTRATE 25 MG GT SCH ×2 (09:39→21:19)
[2015-10-24] MEDS: ENOXAPARIN NA (PORCINE) 40 MG/0.4 ML DISP.SYRIN SQ SCH (09:39)
[2015-10-24] MEDS: LISINOPRIL 20 MG TABLET (FP) GT SCH (09:39)
[2015-10-24] MEDS: amLODIPine BESYLATE 10 MG TABLET (FP) GT SCH (09:39)
[2015-10-24] MEDS: AMINO ACIDS/PROTEIN HYDROLYS SUGAR-FREE 30 ML PACKET PO SCH ×2 (09:39→17:45)
[2015-10-24] MEDS: MULTIVITAMINS THERAPEUTIC GT SCH (09:40)
[2015-10-24] MEDS: ALBUTEROL SO4 0.083% IH SOL 2.5 MG/3 ML VIAL.NEB. NEB PRN (10:50)
[2015-10-24] MEDS: COLLAGENASE CLOSTRIDIUM HIST. 30 GRAMS TUBE TP SCH ×2 (12:11→21:18)
--- NOTE | 2015-10-24 20:08 | PN ---
Progress Note (short form) - Note Progress Note: SUBJECTIVE: Patient seen and examined at bedside. Opened eyes to voice today. OBJECTIVE: Vitals Vital Signs Period Temp Pulse Resp BP Sys/Santiago Pulse Ox Last 24 Hr 98.6 F-98.9 F 79-94 18-22 134-138/72-84 96-99 GENERAL: The patient is somnolent, arousable, opens eyes to physical stimulation. No signs of pain. HEAD: Normal with no signs of trauma. EYES: Pupils equal, round and reactive to light, extraocular movements intact, sclera anicteric, conjunctiva clear. ENT: Ears normal, nares patent, oropharynx clear without exudates. Moist mucous membranes. Trach collar. NECK: Normal range of motion, supple without lymphadenopathy, JVD, or masses. LUNGS: Breath sounds equal, clear to auscultation bilaterally. No wheezes, and no crackles. HEART: Regular rate and rhythm, normal S1 and S2 without murmur, rub or gallop. ABDOMEN: Soft, nontender, normoactive bowel sounds. No guarding, no rebound. No masses. UPPER EXTREMITIES: 2+ pulses, warm, well-perfused, no edema. LOWER EXTREMITIES: 2+ pulses, warm, well-perfused, no edema. NEUROLOGICAL: Unable to assess. CBCD WBC 8.4 K/mm3 (4.0-10.0) 10/21/15 07:20 RBC 3.61 M/mm3 (4.00-5.60) L 10/21/15 07:20 Hgb 10.0 GM/dL (11.7-16.9) L 10/21/15 07:20 Hct 31.2 % (35.4-49) L 10/21/15 07:20 MCV 86.3 fl (80-96) 10/21/15 07:20 MCHC 32.1 g/dl (32.0-35.9) 10/21/15 07:20 RDW 16.3 % (11.9-15.9) H 10/21/15 07:20 Plt Count 274 K/MM3 (134-434) 10/21/15 07:20 MPV 8.2 fl (7.5-11.1) 10/21/15 07:20 CMP Sodium 142 mmol/L (136-145) 10/21/15 07:20 Potassium 3.6 mmol/L (3.5-5.1) 10/21/15 07:20 Chloride 102 mmol/L (98-107) 10/21/15 07:20 Carbon Dioxide 32 mmol/L (21-32) 10/21/15 07:20 Anion Gap 8 (8-16) 10/21/15 07:20 BUN 19 mg/dL (7-18) H 10/21/15 07:20 Creatinine 0.6 mg/dL (0.7-1.3) L 10/21/15 07:20 Creat Clearance w eGFR > 60 (>60) 10/21/15 07:20 Calcium 10.5 mg/dL (8.5-10.1) H 10/21/15 07:20 Total Bilirubin 0.2 mg/dL (0.2-1.0) 10/21/15 07:20 AST 17 U/L (15-37) D 10/21/15 07:20 ALT 30 U/L (12-78) D 10/21/15 07:20 Alkaline Phosphatase 91 U/L (45-117) 10/21/15 07:20 Total Protein 7.9 g/dl (6.4-8.2) 10/21/15 07:20 Albumin 3.3 g/dl (3.4-5.0) L 10/21/15 07:20 Current Medications Generic Name Dose Route Start Last Admin Trade Name Freq PRN Reason Stop Dose Admin Acetaminophen 650 mg 09/09/15 09:29 10/15/15 10:23 Tylenol Oral Solution - GT 650 mg Q6H PRN Administration FEVER Amino Acids 30 ml 09/15/15 17:30 10/24/15 17:45 Prostat Sugar-Free Packet - PO 30 ml BID@0800,1730 KWAKU Administration Amlodipine Besylate 10 mg 09/09/15 10:00 10/24/15 09:39 Norvasc - GT 10 mg DAILY KWAKU Administration Collagenase 1 applic 10/12/15 22:00 10/24/15 12:11 Santyl - TP 1 applic BID KWAKU Administration Enoxaparin Sodium 40 mg 10/15/15 10:00 10/24/15 09:39 Lovenox - SQ 40 mg DAILY KWAKU Administration Ibuprofen 200 mg 09/09/15 09:29 Motrin Oral Suspension - PO Q6H PRN FEVER Insulin Aspart 0 units 09/09/15 12:00 10/24/15 17:45 Novolog Vial SQ 2 units Q6HPO KWAKU Administration Protocol Insulin Detemir 28 units 09/09/15 22:00 10/23/15 21:24 Levemir Vial SQ 28 units HS KWAKU Administration Lisinopril 40 mg 09/09/15 10:00 10/24/15 09:39 Prinivil - GT 40 mg DAILY KWAKU Administration Metoprolol Tartrate 5 mg 09/09/15 09:29 Lopressor Injection - IVPB Q6H PRN HYPERTENSION Metoprolol Tartrate 100 mg/ 125 mg 09/17/15 10:00 10/24/15 09:39 Metoprolol Tartrate 25 mg GT 125 mg BID KWAKU Administration Multivitamins 5 ml 09/09/15 10:00 10/24/15 09:40 Thera-Plus - GT 5 ml DAILY KWAKU Administration Ondansetron HCl 4 mg 09/09/15 09:29 Zofran Injection - IVPB Q6H PRN NAUSEA Pantoprazole Sodium 40 mg 09/09/15 10:00 10/24/15 09:39 Protonix Packets For Oral Suspension - GT 40 mg DAILY KWAKU Administration Assessment: 75 year old male with PMHx of HTN, IDDM, inguinal hernia who presented to the ED with diverticular bleed s/p Right hemicolectomy with 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 Plan: 1. Respiratory failure secondary to anoxic brain injury - Cont trach collar - Albuterol neb PRN 2. HTN - Lisinopril/Metoprolol/Amlodipine 3. Multiple pressure ulcers - Stage III sacrum healing: Collagenase bid with Allevyn dressing - Stage II left ear healed - Turn and position q2h 4. IDDM - Levemir 28 units HS - ISS BGM ACHS 5. F/E/N: - Tube feeds: Vital 1.5 @60ml/hr 6. Prophylaxis: - SCDs bilaterally - Lovenox CODE STATUS: DNR
[2015-10-24] MEDS: INSULIN DETEMIR 100 UNITS/ML MDV SQ SCH (21:14)
[2015-10-25] MEDS: INSULIN (NOVOLOG) ASPART 100 UNITS/ML 10ML VIAL SQ SCH ×4 (05:45→23:30)
[2015-10-25] MEDS: AMINO ACIDS/PROTEIN HYDROLYS SUGAR-FREE 30 ML PACKET PO SCH ×2 (08:55→16:54)
[2015-10-25] MEDS: METOPROLOL TARTRATE 100 MG, METOPROLOL TARTRATE 25 MG GT SCH ×2 (08:59→21:30)
[2015-10-25] MEDS: amLODIPine BESYLATE 10 MG TABLET (FP) GT SCH (08:59)
[2015-10-25] MEDS: LISINOPRIL 20 MG TABLET (FP) GT SCH (08:59)
[2015-10-25] MEDS: MULTIVITAMINS THERAPEUTIC GT SCH (09:00)
[2015-10-25] MEDS: ENOXAPARIN NA (PORCINE) 40 MG/0.4 ML DISP.SYRIN SQ SCH (09:00)
[2015-10-25] MEDS: PANTOPRAZOLE SOD 40 MG SUSPENSION PACKET GT SCH (09:00)
--- NOTE | 2015-10-25 11:04 | PN ---
Progress Note (short form) - Note Progress Note: SUBJECTIVE: Patient seen and examined at bedside. Not responsive to voice today. Responds to physical stimuli. OBJECTIVE: Vitals Vital Signs Period Temp Pulse Resp BP Sys/Santiago Pulse Ox Last 24 Hr 98.6 F-99.7 F 87-105 18-22 135-152/84-92 96-96 GENERAL: The patient is somnolent. No signs of pain. HEAD: Normal with no signs of trauma. EYES: Pupils equal, round and reactive to light, extraocular movements intact, sclera anicteric, conjunctiva clear. ENT: Ears normal, nares patent, oropharynx clear without exudates. Moist mucous membranes. Trach collar. NECK: Normal range of motion, supple without lymphadenopathy, JVD, or masses. LUNGS: Breath sounds equal, clear to auscultation bilaterally. No wheezes, and no crackles. HEART: Regular rate and rhythm, normal S1 and S2 without murmur, rub or gallop. ABDOMEN: Soft, nontender, normoactive bowel sounds. No guarding, no rebound. No masses. UPPER EXTREMITIES: 2+ pulses, warm, well-perfused, no edema. LOWER EXTREMITIES: 2+ pulses, warm, well-perfused, no edema. NEUROLOGICAL: Unable to assess. CBCD WBC 8.4 K/mm3 (4.0-10.0) 10/21/15 07:20 RBC 3.61 M/mm3 (4.00-5.60) L 10/21/15 07:20 Hgb 10.0 GM/dL (11.7-16.9) L 10/21/15 07:20 Hct 31.2 % (35.4-49) L 10/21/15 07:20 MCV 86.3 fl (80-96) 10/21/15 07:20 MCHC 32.1 g/dl (32.0-35.9) 10/21/15 07:20 RDW 16.3 % (11.9-15.9) H 10/21/15 07:20 Plt Count 274 K/MM3 (134-434) 10/21/15 07:20 MPV 8.2 fl (7.5-11.1) 10/21/15 07:20 CMP Sodium 142 mmol/L (136-145) 10/21/15 07:20 Potassium 3.6 mmol/L (3.5-5.1) 10/21/15 07:20 Chloride 102 mmol/L (98-107) 10/21/15 07:20 Carbon Dioxide 32 mmol/L (21-32) 10/21/15 07:20 Anion Gap 8 (8-16) 10/21/15 07:20 BUN 19 mg/dL (7-18) H 10/21/15 07:20 Creatinine 0.6 mg/dL (0.7-1.3) L 10/21/15 07:20 Creat Clearance w eGFR > 60 (>60) 10/21/15 07:20 Calcium 10.5 mg/dL (8.5-10.1) H 10/21/15 07:20 Total Bilirubin 0.2 mg/dL (0.2-1.0) 10/21/15 07:20 AST 17 U/L (15-37) D 10/21/15 07:20 ALT 30 U/L (12-78) D 10/21/15 07:20 Alkaline Phosphatase 91 U/L (45-117) 10/21/15 07:20 Total Protein 7.9 g/dl (6.4-8.2) 10/21/15 07:20 Albumin 3.3 g/dl (3.4-5.0) L 10/21/15 07:20 Current Medications Generic Name Dose Route Start Last Admin Trade Name Ginette PRN Reason Stop Dose Admin Acetaminophen 650 mg 09/09/15 09:29 10/15/15 10:23 Tylenol Oral Solution - GT 650 mg Q6H PRN Administration FEVER Albuterol Sulfate 1 amp 10/25/15 10:42 Ventolin 0.083% Nebulizer Soln - NEB Q4H PRN SHORT OF BREATH/WHEEZING Amino Acids 30 ml 09/15/15 17:30 10/25/15 08:55 Prostat Sugar-Free Packet - PO 30 ml BID@0800,1730 KWAKU Administration Amlodipine Besylate 10 mg 09/09/15 10:00 10/25/15 08:59 Norvasc - GT 10 mg DAILY KWAKU Administration Collagenase 1 applic 10/12/15 22:00 10/24/15 21:18 Santyl - TP 1 applic BID KWAKU Administration Enoxaparin Sodium 40 mg 10/15/15 10:00 10/25/15 09:00 Lovenox - SQ 40 mg DAILY KWAKU Administration Ibuprofen 200 mg 09/09/15 09:29 Motrin Oral Suspension - PO Q6H PRN FEVER Insulin Aspart 0 units 09/09/15 12:00 10/25/15 05:45 Novolog Vial SQ 2 units Q6HPO KWAKU Administration Protocol Insulin Detemir 28 units 09/09/15 22:00 10/24/15 21:14 Levemir Vial SQ 28 units HS KWAKU Administration Lisinopril 40 mg 09/09/15 10:00 10/25/15 08:59 Prinivil - GT 40 mg DAILY KWAKU Administration Metoprolol Tartrate 5 mg 09/09/15 09:29 Lopressor Injection - IVPB Q6H PRN HYPERTENSION Metoprolol Tartrate 100 mg/ 125 mg 09/17/15 10:00 10/25/15 08:59 Metoprolol Tartrate 25 mg GT 125 mg BID KWAKU Administration Multivitamins 5 ml 09/09/15 10:00 10/25/15 09:00 Thera-Plus - GT 5 ml DAILY KWAKU Administration Ondansetron HCl 4 mg 09/09/15 09:29 Zofran Injection - IVPB Q6H PRN NAUSEA Pantoprazole Sodium 40 mg 09/09/15 10:00 10/25/15 09:00 Protonix Packets For Oral Suspension - GT 40 mg DAILY KWAKU Administration Assessment: 75 year old male with PMHx of HTN, IDDM, inguinal hernia who presented to the ED with diverticular bleed s/p right hemicolectomy with 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 Plan: 1. Respiratory failure secondary to anoxic brain injury - Cont trach collar - Albuterol neb PRN 2. HTN - Lisinopril/Metoprolol/Amlodipine 3. Multiple pressure ulcers - Stage III sacrum healing: Collagenase bid with Allevyn dressing - Stage II left ear healed - Turn and position q2h 4. IDDM - Levemir 28 units HS - ISS BGM ACHS 5. F/E/N: - Tube feeds: Vital 1.5 @60ml/hr 6. Prophylaxis: - SCDs bilaterally - Lovenox CODE STATUS: DNR
[2015-10-25] MEDS: COLLAGENASE CLOSTRIDIUM HIST. 30 GRAMS TUBE TP SCH ×2 (13:00→22:30)
[2015-10-25] MEDS: INSULIN DETEMIR 100 UNITS/ML MDV SQ SCH (21:30)
[2015-10-26] MEDS: INSULIN (NOVOLOG) ASPART 100 UNITS/ML 10ML VIAL SQ SCH ×4 (05:59→23:19)
[2015-10-26] MEDS: AMINO ACIDS/PROTEIN HYDROLYS SUGAR-FREE 30 ML PACKET PO SCH ×2 (09:10→17:58)
[2015-10-26] MEDS: LISINOPRIL 20 MG TABLET (FP) GT SCH (09:57)
[2015-10-26] MEDS: ENOXAPARIN NA (PORCINE) 40 MG/0.4 ML DISP.SYRIN SQ SCH (09:57)
[2015-10-26] MEDS: amLODIPine BESYLATE 10 MG TABLET (FP) GT SCH (09:57)
[2015-10-26] MEDS: METOPROLOL TARTRATE 100 MG, METOPROLOL TARTRATE 25 MG GT SCH ×2 (09:57→23:18)
[2015-10-26] MEDS: PANTOPRAZOLE SOD 40 MG SUSPENSION PACKET GT SCH (09:58)
[2015-10-26] MEDS: COLLAGENASE CLOSTRIDIUM HIST. 30 GRAMS TUBE TP SCH ×2 (09:59→23:19)
[2015-10-26] MEDS: MULTIVITAMINS THERAPEUTIC GT SCH (10:00)
--- NOTE | 2015-10-26 22:27 | PN ---
Progress Note (short form) - Note Progress Note: SUBJECTIVE: Patient seen and examined at bedside. Not responsive to voice. Responds to physical stimuli. OBJECTIVE: Vitals Vital Signs Period Temp Pulse Resp BP Sys/Santiago Pulse Ox Last 24 Hr 98.4 F-100.0 F 81-93 19-22 125-157/75-90 96-98 GENERAL: The patient is somnolent. No signs of pain. HEAD: Normal with no signs of trauma. EYES: Pupils equal, round and reactive to light, extraocular movements intact, sclera anicteric, conjunctiva clear. ENT: Ears normal, nares patent, oropharynx clear without exudates. Moist mucous membranes. Trach collar. NECK: Normal range of motion, supple without lymphadenopathy, JVD, or masses. LUNGS: Breath sounds equal, clear to auscultation bilaterally. No wheezes, and no crackles. HEART: Regular rate and rhythm, normal S1 and S2 without murmur, rub or gallop. ABDOMEN: Soft, nontender, normoactive bowel sounds. No guarding, no rebound. No masses. UPPER EXTREMITIES: 2+ pulses, warm, well-perfused, no edema. LOWER EXTREMITIES: 2+ pulses, warm, well-perfused, no edema. NEUROLOGICAL: Unable to assess. CBCD WBC 8.4 K/mm3 (4.0-10.0) 10/21/15 07:20 RBC 3.61 M/mm3 (4.00-5.60) L 10/21/15 07:20 Hgb 10.0 GM/dL (11.7-16.9) L 10/21/15 07:20 Hct 31.2 % (35.4-49) L 10/21/15 07:20 MCV 86.3 fl (80-96) 10/21/15 07:20 MCHC 32.1 g/dl (32.0-35.9) 10/21/15 07:20 RDW 16.3 % (11.9-15.9) H 10/21/15 07:20 Plt Count 274 K/MM3 (134-434) 10/21/15 07:20 MPV 8.2 fl (7.5-11.1) 10/21/15 07:20 CMP Sodium 142 mmol/L (136-145) 10/21/15 07:20 Potassium 3.6 mmol/L (3.5-5.1) 10/21/15 07:20 Chloride 102 mmol/L (98-107) 10/21/15 07:20 Carbon Dioxide 32 mmol/L (21-32) 10/21/15 07:20 Anion Gap 8 (8-16) 10/21/15 07:20 BUN 19 mg/dL (7-18) H 10/21/15 07:20 Creatinine 0.6 mg/dL (0.7-1.3) L 10/21/15 07:20 Creat Clearance w eGFR > 60 (>60) 10/21/15 07:20 Calcium 10.5 mg/dL (8.5-10.1) H 10/21/15 07:20 Total Bilirubin 0.2 mg/dL (0.2-1.0) 10/21/15 07:20 AST 17 U/L (15-37) D 10/21/15 07:20 ALT 30 U/L (12-78) D 10/21/15 07:20 Alkaline Phosphatase 91 U/L (45-117) 10/21/15 07:20 Total Protein 7.9 g/dl (6.4-8.2) 10/21/15 07:20 Albumin 3.3 g/dl (3.4-5.0) L 10/21/15 07:20 Current Medications Generic Name Dose Route Start Last Admin Trade Name Freq PRN Reason Stop Dose Admin Acetaminophen 650 mg 09/09/15 09:29 10/15/15 10:23 Tylenol Oral Solution - GT 650 mg Q6H PRN Administration FEVER Albuterol Sulfate 1 amp 10/25/15 10:42 Ventolin 0.083% Nebulizer Soln - NEB Q4H PRN SHORT OF BREATH/WHEEZING Amino Acids 30 ml 09/15/15 17:30 10/26/15 17:58 Prostat Sugar-Free Packet - PO 30 ml BID@0800,1730 KWAKU Administration Amlodipine Besylate 10 mg 09/09/15 10:00 10/26/15 09:57 Norvasc - GT 10 mg DAILY KWAKU Administration Collagenase 1 applic 10/12/15 22:00 10/26/15 09:59 Santyl - TP 1 applic BID KWAKU Administration Enoxaparin Sodium 40 mg 10/15/15 10:00 10/26/15 09:57 Lovenox - SQ 40 mg DAILY KWAKU Administration Ibuprofen 200 mg 09/09/15 09:29 Motrin Oral Suspension - PO Q6H PRN FEVER Insulin Aspart 0 units 09/09/15 12:00 10/26/15 17:58 Novolog Vial SQ 2 units Q6HPO KWAKU Administration Protocol Insulin Detemir 28 units 09/09/15 22:00 10/25/15 21:30 Levemir Vial SQ 28 units HS KWAKU Administration Lisinopril 40 mg 09/09/15 10:00 10/26/15 09:57 Prinivil - GT 40 mg DAILY KWAKU Administration Metoprolol Tartrate 5 mg 09/09/15 09:29 Lopressor Injection - IVPB Q6H PRN HYPERTENSION Metoprolol Tartrate 100 mg/ 125 mg 09/17/15 10:00 10/26/15 09:57 Metoprolol Tartrate 25 mg GT 125 mg BID KWAKU Administration Multivitamins 5 ml 09/09/15 10:00 10/26/15 10:00 Thera-Plus - GT 5 ml DAILY KWAKU Administration Ondansetron HCl 4 mg 09/09/15 09:29 Zofran Injection - IVPB Q6H PRN NAUSEA Pantoprazole Sodium 40 mg 09/09/15 10:00 10/26/15 09:58 Protonix Packets For Oral Suspension - GT 40 mg DAILY KWAKU Administration Assessment: 75 year old male with PMHx of HTN, IDDM, inguinal hernia who presented to the ED with diverticular bleed s/p right hemicolectomy with 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 Plan: 1. Respiratory failure secondary to anoxic brain injury - Cont trach collar - Albuterol neb PRN 2. HTN - Lisinopril/Metoprolol/Amlodipine 3. Multiple pressure ulcers - Stage III sacrum healing: Collagenase bid with Allevyn dressing - Stage II left ear healed - Turn and position q2h - Wound care rounds tomorrow 4. IDDM - Levemir 28 units HS - ISS BGM ACHS 5. F/E/N: - Tube feeds: Vital 1.5 @60ml/hr 6. Prophylaxis: - SCDs bilaterally - Lovenox CODE STATUS: DNR
[2015-10-26] MEDS: INSULIN DETEMIR 100 UNITS/ML MDV SQ SCH (23:18)
[2015-10-27] MEDS: INSULIN (NOVOLOG) ASPART 100 UNITS/ML 10ML VIAL SQ SCH ×3 (05:26→17:47)
[2015-10-27] MEDS: AMINO ACIDS/PROTEIN HYDROLYS SUGAR-FREE 30 ML PACKET PO SCH ×2 (09:43→17:57)
[2015-10-27] MEDS: METOPROLOL TARTRATE 100 MG, METOPROLOL TARTRATE 25 MG GT SCH ×2 (09:43→21:59)
[2015-10-27] MEDS: MULTIVITAMINS THERAPEUTIC GT SCH (09:44)
[2015-10-27] MEDS: amLODIPine BESYLATE 10 MG TABLET (FP) GT SCH (09:44)
[2015-10-27] MEDS: ENOXAPARIN NA (PORCINE) 40 MG/0.4 ML DISP.SYRIN SQ SCH (09:44)
[2015-10-27] MEDS: PANTOPRAZOLE SOD 40 MG SUSPENSION PACKET GT SCH (09:44)
[2015-10-27] MEDS: LISINOPRIL 20 MG TABLET (FP) GT SCH (09:44)
--- NOTE | 2015-10-27 10:47 | PN ---
Progress Note (short form) - Note Progress Note: [facility] *LIVE* Progress Note (short form) Patient Name: CRUZ LEE Date of : 1940 Patient Status: Inpatient Attending Provider: Marcella Mcdonald Date: 10/13/15 11:45 Initialization Date: 10/13/15 11:45 Progress Note (short form) - Note Progress Note: Wound Assessment [facility] Reason for visit: Wound Assessment Request for consultation: by [facility] Interdisciplinary Wound Care Team Initial Encounter: No Previous Encounter: Yes Wounds - Wound Wound #1 A Type of wound: Yes: Pressure ulcer Stage: III Location/laterality: left buttock Wound size: 3cmL x 2cm W x 0.5cmD Thickness: Partial Undermining: No Tunneling: No Drainage/exudate: yes, serosanguinous, sca t Wound bed tissue: granulating Wound edges color: thick, white, fibrous Wound edges raised: yes Wound edges rolled: yes, partially Wound edges contracted: yes Pain: No Surrounding tissue to 4cm: Yes: healthy - Wound Wound #1 B Type of wound: Yes: Pressure ulcer Stage: III Location/laterality: left buttock Wound size: 2.5cmL x 2cm W x 0.5cmD Thickness: Partial Undermining: No Tunneling: No Drainage/exudate: yes, serosanguinous, sca t Wound bed tissue: slough Wound edges color: thick, white, fibrous Wound edges raised: yes Wound edges rolled: yes, partially Wound edges contracted: yes Pain: No Surrounding tissue to 4cm: Yes: healthy Wound #2 Type of wound: Yes: Pressure ulcer Stage: III healed Location/laterality: left ear Wound size: 0.5cmL x 0.7cmW x 0.1cmD Thickness: Partial Undermining: No Tunneling: No Drainage/exudate: Yes, Wound bed tissue: Yes: Erythematous, slough Wound edges color: Normally pigmented Wound edges raised: No Wound edges rolled: No Wound edges contracted: No Pain: No Surrounding tissue to 4cm: Yes: Healthy Assessment/Plan Wound #1 Diagnosis: Pressure ulcer Wound specific intervention: Collagenase to slough area daily Allevyn dressing Wound #2 Diagnosis: Pressure ulcer Wound specific intervention: None Wound 3 Diagnosis: pressure ulcer Wound specific intervention: none Impediments to healing: Limited mobility, Unable to self-position in bed, Hypoalbunemia, Nutritional deficiencies, Incontinence of urine, Incontinence of bowel Nutrition/Dietary supplements/vitamins: change to Jevity 1.5 at goal of 50, continue Prostat BID No recommendations; added Prostat BID today Support Surface: Accucair Overlay HOB elevation: 30 degrees Off-loading: Turning/repositioning q2h, Elevate heels off bed with pillows Incontinence management: Avoid diapers; if must be used, do not secure around patient
[2015-10-27] MEDS: COLLAGENASE CLOSTRIDIUM HIST. 30 GRAMS TUBE TP SCH ×2 (12:23→21:59)
[2015-10-27] MEDS: INSULIN DETEMIR 100 UNITS/ML MDV SQ SCH (21:59)
[2015-10-28] MEDS: INSULIN (NOVOLOG) ASPART 100 UNITS/ML 10ML VIAL SQ SCH ×5 (00:17→23:52)
[2015-10-28 10:28] LABS: MCH 27.8 pg (25.7-33.7); MCHC 31.9 g/dl (32.0-35.9); MEAN CELL VOLUME 87.3 fl (80-96); MEAN PLT VOLUME 8.5 fl (7.5-11.1); PLATELET COUNT 251 K/MM3 (134-434); RDW 16.7 % (11.9-15.9); WHITE BLOOD COUNT 17.4 K/mm3 (4.0-10.0)
[2015-10-28] MEDS: PANTOPRAZOLE SOD 40 MG SUSPENSION PACKET GT SCH (10:30)
[2015-10-28] MEDS: LISINOPRIL 20 MG TABLET (FP) GT SCH (10:31)
[2015-10-28] MEDS: METOPROLOL TARTRATE 100 MG, METOPROLOL TARTRATE 25 MG GT SCH ×2 (10:32→22:03)
[2015-10-28] MEDS: ENOXAPARIN NA (PORCINE) 40 MG/0.4 ML DISP.SYRIN SQ SCH (10:32)
[2015-10-28] MEDS: amLODIPine BESYLATE 10 MG TABLET (FP) GT SCH (10:33)
[2015-10-28] MEDS: AMINO ACIDS/PROTEIN HYDROLYS SUGAR-FREE 30 ML PACKET PO SCH ×2 (10:33→17:44)
[2015-10-28] MEDS: MULTIVITAMINS THERAPEUTIC GT SCH (10:34)
[2015-10-28] MEDS: ACETAMINOPHEN 650 MG/20.3 ML ORAL SOLUTION (CUPS) GT PRN ×2 (12:00→17:53)
[2015-10-28] MEDS: COLLAGENASE CLOSTRIDIUM HIST. 30 GRAMS TUBE TP SCH ×2 (12:41→22:03)
--- NOTE | 2015-10-28 13:38 | PN ---
Progress Note, Physician Chief Complaint: Pt seen and examined at bedside, status remains unchanged - Current Medication List Current Medications: Active Medications Acetaminophen (Tylenol Oral Solution -) 650 mg GT Q6H PRN PRN Reason: FEVER Last Admin: 10/28/15 12:00 Dose: 650 mg Albuterol Sulfate (Ventolin 0.083% Nebulizer Soln -) 1 amp NEB Q4H PRN PRN Reason: SHORT OF BREATH/WHEEZING Amino Acids (Prostat Sugar-Free Packet -) 30 ml PO BID@0800,1730 [facility] Last Admin: 10/28/15 10:33 Dose: 30 ml Amlodipine Besylate (Norvasc -) 10 mg GT DAILY [facility] Last Admin: 10/28/15 10:33 Dose: 10 mg Collagenase (Santyl -) 1 applic TP BID [facility] Last Admin: 10/28/15 12:41 Dose: 1 applic Ampicillin Sodium/Sulbactam (Sodium 1.5 gm/ Sodium Chloride) 100 mls @ 200 mls/ hr IVPB Q8H-IV [facility] Last Admin: 10/28/15 13:22 Dose: 200 mls/hr Ibuprofen (Motrin Oral Suspension -) 200 mg PO Q6H PRN PRN Reason: FEVER Last Admin: 10/28/15 13:23 Dose: 200 mg Insulin Aspart (Novolog Vial) 0 units SQ Q6HPO [facility] PRN Reason: Protocol Last Admin: 10/28/15 12:41 Dose: 2 units Insulin Detemir (Levemir Vial) 28 units SQ HS [facility] Last Admin: 10/27/15 21:59 Dose: 28 units Lisinopril (Prinivil -) 40 mg GT DAILY [facility] Last Admin: 10/28/15 10:31 Dose: 40 mg Metoprolol Tartrate (Lopressor Injection -) 5 mg IVPB Q6H PRN PRN Reason: HYPERTENSION Metoprolol Tartrate 100 mg/ (Metoprolol Tartrate 25 mg) 125 mg GT BID [facility] Last Admin: 10/28/15 10:32 Dose: 125 mg Multivitamins (Thera-Plus -) 5 ml GT DAILY [facility] Last Admin: 10/28/15 10:34 Dose: 5 ml Ondansetron HCl (Zofran Injection -) 4 mg IVPB Q6H PRN PRN Reason: NAUSEA Pantoprazole Sodium (Protonix Packets For Oral Suspension -) 40 mg GT DAILY [facility] Last Admin: 10/28/15 10:30 Dose: 40 mg - Objective Vital Signs: Vital Signs Temperature 101.7 F H 10/28/15 09:23 Pulse Rate 124 H 10/28/15 09:23 Respiratory Rate 22 10/28/15 09:23 Blood Pressure 177/92 10/28/15 09:23 O2 Sat by Pulse Oximetry (%) 97 10/28/15 10:00 Constitutional: Yes: No Distress, Calm, Other (non verbal) Eyes: Yes: WNL, Conjunctiva Clear HENT: Yes: Normocephalic Neck: Yes: WNL, Supple Cardiovascular: Yes: WNL, Regular Rate and Rhythm Respiratory: Yes: Other (trach) Gastrointestinal: Yes: Normal Bowel Sounds, Soft, Other (peg tube) Genitourinary: Yes: Incontinence Musculoskeletal: Yes: Muscle Weakness Edema: No Peripheral Pulses WNL: Yes Integumentary: Yes: Pressure Ulcer (sacral ulcer) Wound/Incision: Yes: Dressing Dry and Intact Neurological: Yes: Unresponsive Labs: CBC, BMP 10/28/15 10:00 10/21/15 07:20 INR, PTT INR 1.32 (0.86-1.14) H 09/03/15 19:20 - ....Imaging Chest X-ray: Pending Assessment/Plan This is a 75 year old male with PMHx of HTN, IDDM, inguinal hernia who presented to the ED with diverticular bleed s/p right hemicolectomy with 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 * Fever r/o sepsis? aspiration pneumonia - Lopez cultures ordered - WBC trending up from 8.4 to 17.4 - cxr ordered - lactic acid level 2.7 , will give IV and Rpt lactic acid in 6 hrs - case discussed with ID Dr. Guardado, will see pt later - started on Unasyn * Respiratory failure secondary to anoxic brain injury - Cont trach collar - Albuterol neb PRN * HTN- elevated - will cont on Lisinopril/Metoprolol/Amlodipine and PRN Lopressor - will monitor BP closely * Multiple pressure ulcers - Stage III sacrum healing: Collagenase bid with Allevyn dressing - Stage II left ear healed - Turn and position q2h - will cont wound care *IDDM - Levemir 28 units HS - ISS BGM ACHS * F/E/N: - Tube feeds: Vital 1.5 @60ml/hr *Prophylaxis: - SCDs bilaterally - Lovenox CODE STATUS: DNR
[2015-10-28 14:54] LABS: URINE APPEARANCE CLEAR; URINE BILIRUBIN NEGATIVE (NEGATIVE); URINE BLOOD NEGATIVE (NEGATIVE); URINE COLOR YELLOW; URINE GLUCOSE (UA) NEGATIVE (NEGATIVE); URINE KETONE NEGATIVE (NEGATIVE); URINE LEUK ESTERASE NEGATIVE (NEGATIVE); URINE NITRITE NEGATIVE (NEGATIVE); URINE PROTEIN NEGATIVE (NEGATIVE); URINE UROBILINOGEN NEGATIVE E.U./dl (0.2-1.0)
[2015-10-28] MEDS: PIPERACILLIN/TAZOB 3.375 GM 3.375 GM in DEXTROSE 5%-WATER - 50 ML IVPB SCH ×2 (16:29→17:44)
[2015-10-28] MEDS: SODIUM CHLORIDE 1,000 ML IV SCH (17:47)
[2015-10-28 18:57] LABS: CALCIUM 9.3 mg/dL (8.5-10.1)
[2015-10-28 18:58] LABS: CREATININE 0.9 mg/dL (0.7-1.3)
[2015-10-28] MEDS: INSULIN DETEMIR 100 UNITS/ML MDV SQ SCH (22:02)
[2015-10-29] MEDS: PIPERACILLIN/TAZOB 3.375 GM 3.375 GM in DEXTROSE 5%-WATER - 50 ML IVPB SCH ×3 (01:13→18:03)
[2015-10-29] MEDS: INSULIN (NOVOLOG) ASPART 100 UNITS/ML 10ML VIAL SQ SCH ×4 (05:37→23:50)
[2015-10-29 07:47] LABS: BASOPHIL 0.3 % (0-2.0); EOSINOPHIL 4.6 % (0-4.5); MCH 28.5 pg (25.7-33.7); MCHC 32.8 g/dl (32.0-35.9); MEAN CELL VOLUME 86.8 fl (80-96); MEAN PLT VOLUME 8.4 fl (7.5-11.1); NEUTROPHILS 68.3 % (42.8-82.8); PLATELET COUNT 196 K/MM3 (134-434); RDW 16.7 % (11.9-15.9); WHITE BLOOD COUNT 10.3 K/mm3 (4.0-10.0)
[2015-10-29] MEDS: AMINO ACIDS/PROTEIN HYDROLYS SUGAR-FREE 30 ML PACKET PO SCH ×2 (08:52→18:03)
[2015-10-29] MEDS: COLLAGENASE CLOSTRIDIUM HIST. 30 GRAMS TUBE TP SCH ×2 (10:00→21:25)
--- NOTE | 2015-10-29 11:23 | PN ---
Progress Note, Physician Chief Complaint: ID Discussed with Marcella Mcdonald regarding new onset fevers Vancomcyin and Zosyn given empiriclly per Dr Guardado day 1 I note on exam now profuse diarrhea - Current Medication List Current Medications: Active Medications Acetaminophen (Tylenol Oral Solution -) 650 mg GT Q6H PRN PRN Reason: FEVER Last Admin: 10/28/15 17:53 Dose: 650 mg Albuterol Sulfate (Ventolin 0.083% Nebulizer Soln -) 1 amp NEB Q4H PRN PRN Reason: SHORT OF BREATH/WHEEZING Amino Acids (Prostat Sugar-Free Packet -) 30 ml PO BID@0800,1730 [facility] Last Admin: 10/29/15 08:52 Dose: 30 ml Amlodipine Besylate (Norvasc -) 10 mg GT DAILY [facility] Last Admin: 10/28/15 10:33 Dose: 10 mg Collagenase (Santyl -) 1 applic TP BID [facility] Last Admin: 10/28/15 22:03 Dose: 1 applic Sodium Chloride (Normal Saline -) 1,000 mls @ 100 mls/hr IV ASDIR [facility] Last Admin: 10/28/15 17:47 Dose: 100 mls/hr Piperacillin Sod/Tazobactam (Sod 3.375 gm/ Dextrose) 50 mls @ 100 mls/hr IVPB Q8H-IV [facility] Last Admin: 10/29/15 01:13 Dose: 100 mls/hr Ibuprofen (Motrin Oral Suspension -) 200 mg PO Q6H PRN PRN Reason: FEVER Last Admin: 10/28/15 13:23 Dose: 200 mg Insulin Aspart (Novolog Vial) 0 units SQ Q6HPO [facility] PRN Reason: Protocol Last Admin: 10/29/15 05:37 Dose: 2 units Insulin Detemir (Levemir Vial) 28 units SQ HS [facility] Last Admin: 10/28/15 22:02 Dose: 28 units Lisinopril (Prinivil -) 40 mg GT DAILY [facility] Last Admin: 10/28/15 10:31 Dose: 40 mg Metoprolol Tartrate (Lopressor Injection -) 5 mg IVPB Q6H PRN PRN Reason: HYPERTENSION Metoprolol Tartrate 100 mg/ (Metoprolol Tartrate 25 mg) 125 mg GT BID [facility] Last Admin: 10/28/15 22:03 Dose: 125 mg Multivitamins (Thera-Plus -) 5 ml GT DAILY [facility] Last Admin: 10/28/15 10:34 Dose: 5 ml Ondansetron HCl (Zofran Injection -) 4 mg IVPB Q6H PRN PRN Reason: NAUSEA Pantoprazole Sodium (Protonix Packets For Oral Suspension -) 40 mg GT DAILY [facility] Last Admin: 10/28/15 10:30 Dose: 40 mg - Objective Vital Signs: Vital Signs Temperature 99.1 F 10/29/15 06:00 Pulse Rate 101 H 10/29/15 09:17 Respiratory Rate 18 10/28/15 23:37 Blood Pressure 140/75 10/29/15 06:00 O2 Sat by Pulse Oximetry (%) 97 10/29/15 09:17 Cardiovascular: Yes: S1, S2 Respiratory: Yes: WNL, Regular, CTA Bilaterally Gastrointestinal: Yes: WNL, Normal Bowel Sounds, Soft Integumentary: Yes: Other (Buttock decubitus ulcer) Labs: CBC, BMP 10/29/15 06:00 10/28/15 17:13 INR, PTT INR 1.32 (0.86-1.14) H 09/03/15 19:20 Assessment/Plan Microbiology 10/28/15 10:50 Blood - Peripheral Venous Blood Culture - Preliminary NO GROWTH OBTAINED AFTER 24 HOURS, INCUBATION TO CONTINUE FOR 4 DAYS. 10/28/15 10:50 Blood - Peripheral Venous Blood Culture - Preliminary NO GROWTH OBTAINED AFTER 24 HOURS, INCUBATION TO CONTINUE FOR 4 DAYS. Laboratory Tests 10/28/15 10/28/15 10/28/15 10:00 14:30 17:13 WBC 17.4 H D Hgb Hct Plt Count BUN 28 H D Creatinine 0.9 D Ur Leukocyte Esterase Negative 10/29/15 06:00 WBC 10.3 H D Hgb 8.6 L D Hct 26.3 L D Plt Count 196 D BUN Creatinine Ur Leukocyte Esterase Assessment New onset of fever for this 75 year old with tracheostomy and decubitus ulcers Straight cath urine analysis not impressive nor is chest xray. He has diarrhea raising again the issue fever from C diff. Blood cultures no growth Doubt sacral osteo would cause this acute onset of fever Plan Await cultures Sputum from trach Zosyn continue C diff toxin to send\Add flagyl
--- NOTE | 2015-10-29 14:42 | PN ---
Progress Note (short form) - Note Progress Note: SUBJECTIVE: Patient seen and examined at bedside. Eyes open, non-purposeful movement. Does not track to voice. Reflex hand grasping. OBJECTIVE: Vitals Vital Signs Period Temp Pulse Resp BP Sys/Santiago Pulse Ox Last 24 Hr 99.1 F-100.5 F 87-115 18-20 124-142/64-79 97-97 GENERAL: The patient has periods of somnolence, periods of wakefulness. No signs of pain. HEAD: Normal with no signs of trauma. EYES: Pupils equal, round and reactive to light, sclera anicteric, conjunctiva clear. ENT: Ears normal, nares patent, oropharynx clear without exudates. Moist mucous membranes. Trach collar. NECK: Normal range of motion, supple without lymphadenopathy, JVD, or masses. LUNGS: Breath sounds equal, clear to auscultation bilaterally. No wheezes, and no crackles. HEART: Regular rate and rhythm, normal S1 and S2 without murmur, rub or gallop. ABDOMEN: Soft, nontender, normoactive bowel sounds. No guarding, no rebound. No masses. UPPER EXTREMITIES: 2+ pulses, warm, well-perfused, no edema. LOWER EXTREMITIES: 2+ pulses, warm, well-perfused, no edema. NEUROLOGICAL: Unable to assess. Laboratory Results - last 24 hr 10/28/15 10/29/15 10/29/15 23:50 05:35 06:00 WBC 10.3 H D RBC 3.03 L D Hgb 8.6 L D Hct 26.3 L D MCV 86.8 MCHC 32.8 RDW 16.7 H Plt Count 196 D MPV 8.4 Neutrophils % 68.3 Lymphocytes % 20.4 D Monocytes % 6.4 Eosinophils % 4.6 H Basophils % 0.3 POC Glucometer 185 164 10/29/15 10/29/15 12:45 18:01 WBC RBC Hgb Hct MCV MCHC RDW Plt Count MPV Neutrophils % Lymphocytes % Monocytes % Eosinophils % Basophils % POC Glucometer 87 120 Current Medications Generic Name Dose Route Start Last Admin Trade Name Freq PRN Reason Stop Dose Admin Acetaminophen 650 mg 09/09/15 09:29 10/28/15 17:53 Tylenol Oral Solution - GT 650 mg Q6H PRN Administration FEVER Albuterol Sulfate 1 amp 10/25/15 10:42 Ventolin 0.083% Nebulizer Soln - NEB Q4H PRN SHORT OF BREATH/WHEEZING Amino Acids 30 ml 09/15/15 17:30 10/29/15 18:03 Prostat Sugar-Free Packet - PO 30 ml BID@0800,1730 [facility] Administration Amlodipine Besylate 10 mg 09/09/15 10:00 10/29/15 16:29 Norvasc - GT 10 mg DAILY [facility] Administration Collagenase 1 applic 10/12/15 22:00 10/29/15 10:00 Santyl - TP 1 applic BID [facility] Administration Sodium Chloride 1,000 mls @ 100 mls/hr 10/28/15 14:15 10/29/15 16:38 Normal Saline - IV 100 mls/hr ASDIR [facility] Administration Piperacillin Sod/Tazobactam 50 mls @ 100 mls/hr 10/28/15 15:30 10/29/15 18:03 Sod 3.375 gm/ Dextrose IVPB 100 mls/hr Q8H-IV [facility] Administration Ibuprofen 200 mg 09/09/15 09:29 10/28/15 13:23 Motrin Oral Suspension - PO 200 mg Q6H PRN Administration FEVER Insulin Aspart 0 units 09/09/15 12:00 10/29/15 18:04 Novolog Vial SQ Not Given Q6HPO [facility] Protocol Insulin Detemir 28 units 09/09/15 22:00 10/28/15 22:02 Levemir Vial SQ 28 units HS [facility] Administration Lisinopril 40 mg 09/09/15 10:00 10/29/15 16:29 Prinivil - GT 40 mg DAILY [facility] Administration Metoprolol Tartrate 5 mg 09/09/15 09:29 Lopressor Injection - IVPB Q6H PRN HYPERTENSION Metoprolol Tartrate 100 mg/ 125 mg 09/17/15 10:00 10/29/15 16:46 Metoprolol Tartrate 25 mg GT Not Given BID [facility] Metronidazole 500 mg 10/29/15 14:00 10/29/15 16:35 Flagyl - PO 500 mg TID [facility] Administration Multivitamins 5 ml 09/09/15 10:00 10/29/15 16:30 Thera-Plus - GT 5 ml DAILY [facility] Administration Ondansetron HCl 4 mg 09/09/15 09:29 Zofran Injection - IVPB Q6H PRN NAUSEA Pantoprazole Sodium 40 mg 09/09/15 10:00 10/29/15 16:30 Protonix Packets For Oral Suspension - GT 40 mg DAILY [facility] Administration Assessment & Plan: 75 year old male with PMHx of HTN, IDDM, inguinal hernia who presented to the ED with diverticular bleed s/p right hemicolectomy with 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 Over past 24 hours, spiked fever and white count. Leukocytosis Fever Lactic acidosis --yesterday WBC 17.3, today 10.3; Tm 101.8; lactic acid 2.7-->2.3 --cultures pending --C.diff antigen and antibody negative, ordered C.diff PCR --continue Zosyn (day #2) Respiratory failure secondary to anoxic brain injury --Cont trach collar --Albuterol neb PRN Hypertension Lisinopril/Metoprolol/Amlodipine Multiple pressure ulcers IDDM --Levemir 28 units HS --Novolog sliding scale coverage --fingersticks 5. F/E/N: - Tube feeds: Vital 1.5 @60ml/hr 6. Prophylaxis: - SCDs bilaterally - Lovenox CODE STATUS: DNR IDDM - Levemir 28 units HS - ISS BGM ACHS 5. F/E/N: - Tube feeds: Vital 1.5 @60ml/hr 6. Prophylaxis: - SCDs bilaterally - Lovenox CODE STATUS: DNR
[2015-10-29] MEDS: SODIUM CHLORIDE 1,000 ML IV SCH ×2 (16:28→16:38)
[2015-10-29] MEDS: amLODIPine BESYLATE 10 MG TABLET (FP) GT SCH (16:29)
[2015-10-29] MEDS: LISINOPRIL 20 MG TABLET (FP) GT SCH (16:29)
[2015-10-29] MEDS: PANTOPRAZOLE SOD 40 MG SUSPENSION PACKET GT SCH (16:30)
[2015-10-29] MEDS: MULTIVITAMINS THERAPEUTIC GT SCH (16:30)
[2015-10-29] MEDS: metroNIDAZOLE 250 MG TABLET PO SCH ×2 (16:35→21:24)
[2015-10-29] MEDS: METOPROLOL TARTRATE 100 MG, METOPROLOL TARTRATE 25 MG GT SCH ×2 (16:46→21:25)
[2015-10-29] MEDS: ALBUTEROL SO4 0.083% IH SOL 2.5 MG/3 ML VIAL.NEB. NEB PRN (17:30)
[2015-10-29] MEDS: INSULIN DETEMIR 100 UNITS/ML MDV SQ SCH (21:29)
[2015-10-30] MEDS: PIPERACILLIN/TAZOB 3.375 GM 3.375 GM in DEXTROSE 5%-WATER - 50 ML IVPB SCH ×3 (01:00→17:23)
[2015-10-30] MEDS: metroNIDAZOLE 250 MG TABLET PO SCH ×3 (06:03→21:33)
[2015-10-30] MEDS: INSULIN (NOVOLOG) ASPART 100 UNITS/ML 10ML VIAL SQ SCH ×3 (06:04→17:24)
[2015-10-30] MEDS: AMINO ACIDS/PROTEIN HYDROLYS SUGAR-FREE 30 ML PACKET PO SCH ×2 (10:36→17:23)
[2015-10-30] MEDS: COLLAGENASE CLOSTRIDIUM HIST. 30 GRAMS TUBE TP SCH ×2 (10:39→21:35)
[2015-10-30] MEDS: METOPROLOL TARTRATE 100 MG, METOPROLOL TARTRATE 25 MG GT SCH ×2 (10:40→21:32)
[2015-10-30] MEDS: MULTIVITAMINS THERAPEUTIC GT SCH (10:41)
[2015-10-30] MEDS: PANTOPRAZOLE SOD 40 MG SUSPENSION PACKET GT SCH (10:41)
[2015-10-30] MEDS: amLODIPine BESYLATE 10 MG TABLET (FP) GT SCH (10:41)
[2015-10-30] MEDS: LISINOPRIL 20 MG TABLET (FP) GT SCH (10:41)
[2015-10-30 12:32] LABS: BASOPHIL 0.7 % (0-2.0); EOSINOPHIL 6.8 % (0-4.5); MCH 28.9 pg (25.7-33.7); MEAN CELL VOLUME 87.7 fl (80-96); MEAN PLT VOLUME 8.7 fl (7.5-11.1); NEUTROPHILS 65.9 % (42.8-82.8); PLATELET COUNT 190 K/MM3 (134-434); RDW 16.5 % (11.9-15.9)
[2015-10-30 13:05] LABS: ALBUMIN 2.7 g/dl (3.4-5.0); ALK PHOS 73 U/L (45-117); ANION GAP 8 (8-16); BILIRUBIN,TOTAL 0.2 mg/dL (0.2-1.0); CO2 28 mmol/L (21-32); CREATININE 0.6 mg/dL (0.7-1.3); GLUCOSE,RANDOM 126 mg/dL (74-106); SGOT/AST 11 U/L (15-37); SGPT/ALT 14 U/L (12-78); TOT PROT 6.4 g/dl (6.4-8.2)
[2015-10-30] MEDS: SODIUM CHLORIDE 1,000 ML IV SCH (14:39)
[2015-10-30] MEDS: POTASSIUM CHLORIDE 40 MEQ/30 ML UNIT DOSE CUP PO SCH ×2 (17:23→21:32)
--- NOTE | 2015-10-30 18:26 | PN ---
Progress Note (short form) - Note Progress Note: SUBJECTIVE: Patient seen and examined at bedside. Eyes open, non-purposeful movement. Does not track to voice. Reflex hand grasping. OBJECTIVE: Vitals Vital Signs Temperature 97.9 F 10/30/15 17:26 Pulse Rate 91 H 10/30/15 17:26 Respiratory Rate 20 10/30/15 17:26 Blood Pressure 148/83 10/30/15 17:26 O2 Sat by Pulse Oximetry (%) 99 10/30/15 10:45 GENERAL: The patient has periods of somnolence, periods of wakefulness. No signs of pain. HEAD: Normal with no signs of trauma. EYES: Pupils equal, round and reactive to light, sclera anicteric, conjunctiva clear. ENT: Ears normal, nares patent, oropharynx clear without exudates. Moist mucous membranes. Trach collar. NECK: Normal range of motion, supple without lymphadenopathy, JVD, or masses. LUNGS: Breath sounds equal, clear to auscultation bilaterally. No wheezes, and no crackles. HEART: Regular rate and rhythm, normal S1 and S2 without murmur, rub or gallop. ABDOMEN: Soft, nontender, normoactive bowel sounds. No guarding, no rebound. No masses. UPPER EXTREMITIES: 2+ pulses, warm, well-perfused, no edema. LOWER EXTREMITIES: 2+ pulses, warm, well-perfused, no edema. NEUROLOGICAL: Unable to assess. Laboratory Results - last 24 hr 10/30/15 10/30/15 10/30/15 11:23 11:55 17:20 WBC 8.0 RBC 2.94 L Hgb 8.5 L Hct 25.7 L MCV 87.7 MCHC 33.0 RDW 16.5 H Plt Count 190 MPV 8.7 Neutrophils % 65.9 Lymphocytes % 20.7 Monocytes % 5.9 Eosinophils % 6.8 H Basophils % 0.7 Sodium 144 Potassium 3.2 L Chloride 108 H Carbon Dioxide 28 Anion Gap 8 BUN 15 D Creatinine 0.6 L D Creat Clearance w eGFR > 60 POC Glucometer 135 156 Random Glucose 126 H D Calcium 9.0 Total Bilirubin 0.2 AST 11 L D ALT 14 D Alkaline Phosphatase 73 Total Protein 6.4 Albumin 2.7 L Current Medications Generic Name Dose Route Start Last Admin Trade Name Freq PRN Reason Stop Dose Admin Acetaminophen 650 mg 09/09/15 09:29 12/31/15 17:53 Tylenol Oral Solution - GT 650 mg Q6H PRN Administration FEVER Albuterol Sulfate 1 amp 10/25/15 10:42 10/29/15 17:30 Ventolin 0.083% Nebulizer Soln - NEB 1 amp Q4H PRN Administration SHORT OF BREATH/WHEEZING Amino Acids 30 ml 09/15/15 17:30 10/30/15 17:23 Prostat Sugar-Free Packet - PO 30 ml BID@0800,1730 [facility] Administration Amlodipine Besylate 10 mg 09/09/15 10:00 10/30/15 10:41 Norvasc - GT 10 mg DAILY [facility] Administration Collagenase 1 applic 10/12/15 22:00 10/30/15 10:39 Santyl - TP 1 applic BID [facility] Administration Sodium Chloride 1,000 mls @ 100 mls/hr 10/28/15 14:15 10/30/15 14:39 Normal Saline - IV 100 mls/hr ASDIR [facility] Administration Piperacillin Sod/Tazobactam 50 mls @ 100 mls/hr 10/28/15 15:30 10/30/15 17:23 Sod 3.375 gm/ Dextrose IVPB 100 mls/hr Q8H-IV [facility] Administration Ibuprofen 200 mg 09/09/15 09:29 10/28/15 13:23 Motrin Oral Suspension - PO 200 mg Q6H PRN Administration FEVER Insulin Aspart 0 units 09/09/15 12:00 10/30/15 17:24 Novolog Vial SQ 2 units Q6HPO [facility] Administration Protocol Insulin Detemir 28 units 09/09/15 22:00 10/29/15 21:29 Levemir Vial SQ 28 units HS [facility] Administration Lisinopril 40 mg 09/09/15 10:00 10/30/15 10:41 Prinivil - GT 40 mg DAILY [facility] Administration Metoprolol Tartrate 5 mg 09/09/15 09:29 Lopressor Injection - IVPB Q6H PRN HYPERTENSION Metoprolol Tartrate 100 mg/ 125 mg 09/17/15 10:00 10/30/15 10:40 Metoprolol Tartrate 25 mg GT 125 mg BID [facility] Administration Metronidazole 500 mg 10/29/15 14:00 10/30/15 14:40 Flagyl - PO 500 mg TID [facility] Administration Multivitamins 5 ml 09/09/15 10:00 10/30/15 10:41 Thera-Plus - GT 5 ml DAILY [facility] Administration Ondansetron HCl 4 mg 09/09/15 09:29 Zofran Injection - IVPB Q6H PRN [facility]A Pantoprazole Sodium 40 mg 09/09/15 10:00 10/30/15 10:41 Protonix Packets For Oral Suspension - GT 40 mg DAILY [facility] Administration Potassium Chloride 40 meq 10/30/15 15:00 10/30/15 17:23 Kcl Oral Solution - PO 10/30/15 22:01 40 meq BID [facility] Administration Assessment & Plan: 75 year old male with PMHx of HTN, IDDM, inguinal hernia who presented to the ED with diverticular bleed s/p right hemicolectomy with 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 Over past 24 hours, spiked fever and white count. Leukocytosis, resolved Fever, resolved Lactic acidosis --WBC has trended to WNL, Tm 100.3 --cultures pending --C.diff antigen and antibody negative, ordered C.diff PCR --continue Zosyn (day #3), metronidazole (day #2) Respiratory failure secondary to anoxic brain injury --Cont trach collar --Albuterol neb PRN Hypertension Lisinopril/Metoprolol/Amlodipine Multiple pressure ulcers IDDM --Levemir 28 units HS --Novolog sliding scale coverage --fingersticks 5. F/E/N: - Tube feeds: Vital 1.5 @60ml/hr 6. Prophylaxis: - SCDs bilaterally - Lovenox CODE STATUS: DNR
--- NOTE | 2015-10-30 18:29 | PN ---
Progress Note, Physician History of Present Illness: Awake. responsive Temps, WBC down + loose BMs - Current Medication List Current Medications: Active Medications Acetaminophen (Tylenol Oral Solution -) 650 mg GT Q6H PRN PRN Reason: FEVER Last Admin: 10/28/15 17:53 Dose: 650 mg Albuterol Sulfate (Ventolin 0.083% Nebulizer Soln -) 1 amp NEB Q4H PRN PRN Reason: SHORT OF BREATH/WHEEZING Last Admin: 10/29/15 17:30 Dose: 1 amp Amino Acids (Prostat Sugar-Free Packet -) 30 ml PO BID@0800,1730 [facility] Last Admin: 10/30/15 17:23 Dose: 30 ml Amlodipine Besylate (Norvasc -) 10 mg GT DAILY [facility] Last Admin: 10/30/15 10:41 Dose: 10 mg Collagenase (Santyl -) 1 applic TP BID [facility] Last Admin: 10/30/15 10:39 Dose: 1 applic Sodium Chloride (Normal Saline -) 1,000 mls @ 100 mls/hr IV ASDIR [facility] Last Admin: 10/30/15 14:39 Dose: 100 mls/hr Piperacillin Sod/Tazobactam (Sod 3.375 gm/ Dextrose) 50 mls @ 100 mls/hr IVPB Q8H-IV [facility] Last Admin: 10/30/15 17:23 Dose: 100 mls/hr Ibuprofen (Motrin Oral Suspension -) 200 mg PO Q6H PRN PRN Reason: FEVER Last Admin: 10/28/15 13:23 Dose: 200 mg Insulin Aspart (Novolog Vial) 0 units SQ Q6HPO [facility] PRN Reason: Protocol Last Admin: 10/30/15 17:24 Dose: 2 units Insulin Detemir (Levemir Vial) 28 units SQ HS [facility] Last Admin: 10/29/15 21:29 Dose: 28 units Lisinopril (Prinivil -) 40 mg GT DAILY [facility] Last Admin: 10/30/15 10:41 Dose: 40 mg Metoprolol Tartrate (Lopressor Injection -) 5 mg IVPB Q6H PRN PRN Reason: HYPERTENSION Metoprolol Tartrate 100 mg/ (Metoprolol Tartrate 25 mg) 125 mg GT BID [facility] Last Admin: 10/30/15 10:40 Dose: 125 mg Metronidazole (Flagyl -) 500 mg PO TID [facility] Last Admin: 10/30/15 14:40 Dose: 500 mg Multivitamins (Thera-Plus -) 5 ml GT DAILY [facility] Last Admin: 10/30/15 10:41 Dose: 5 ml Ondansetron HCl (Zofran Injection -) 4 mg IVPB Q6H PRN PRN Reason: NAUSEA Pantoprazole Sodium (Protonix Packets For Oral Suspension -) 40 mg GT DAILY [facility] Last Admin: 10/30/15 10:41 Dose: 40 mg Potassium Chloride (Kcl Oral Solution -) 40 meq PO BID [facility] Stop: 10/30/15 22:01 Last Admin: 10/30/15 17:23 Dose: 40 meq - Objective Vital Signs: Vital Signs Temperature 97.9 F 10/30/15 17:26 Pulse Rate 91 H 10/30/15 17:26 Respiratory Rate 20 10/30/15 17:26 Blood Pressure 148/83 10/30/15 17:26 O2 Sat by Pulse Oximetry (%) 99 10/30/15 10:45 Constitutional: Yes: No Distress Cardiovascular: Yes: Regular Rate and Rhythm, S1, S2 Respiratory: Yes: Diminished Gastrointestinal: Yes: Normal Bowel Sounds, Soft Labs: CBC, BMP 10/30/15 11:55 10/30/15 11:55 INR, PTT INR 1.32 (0.86-1.14) H 09/03/15 19:20 Assessment/Plan Fever/ leukocytosis-improved S/P CVA Resp failure R/O C difficile Continue empiric zosyn/ flagyl
[2015-10-30] MEDS: INSULIN DETEMIR 100 UNITS/ML MDV SQ SCH (21:34)
[2015-10-31] MEDS: INSULIN (NOVOLOG) ASPART 100 UNITS/ML 10ML VIAL SQ SCH ×4 (00:02→18:29)
[2015-10-31] MEDS: PIPERACILLIN/TAZOB 3.375 GM 3.375 GM in DEXTROSE 5%-WATER - 50 ML IVPB SCH ×3 (02:04→17:32)
[2015-10-31] MEDS: metroNIDAZOLE 250 MG TABLET PO SCH ×3 (06:36→22:34)
[2015-10-31] MEDS: SODIUM CHLORIDE 1,000 ML IV SCH ×3 (06:37→14:47)
[2015-10-31 08:36] LABS: BASOPHIL 1.1 % (0-2.0); EOSINOPHIL 5.6 % (0-4.5); MCH 28.2 pg (25.7-33.7); MCHC 32.4 g/dl (32.0-35.9); MEAN CELL VOLUME 86.9 fl (80-96); MEAN PLT VOLUME 8.7 fl (7.5-11.1); NEUTROPHILS 64.2 % (42.8-82.8); PLATELET COUNT 242 K/MM3 (134-434); RDW 16.4 % (11.9-15.9); WHITE BLOOD COUNT 7.4 K/mm3 (4.0-10.0)
[2015-10-31 08:58] LABS: ALBUMIN 3.2 g/dl (3.4-5.0); ALK PHOS 88 U/L (45-117); ANION GAP 10 (8-16); BILIRUBIN,TOTAL 0.2 mg/dL (0.2-1.0); CALCIUM 9.9 mg/dL (8.5-10.1); CO2 26 mmol/L (21-32); CREATININE 0.5 mg/dL (0.7-1.3); GLUCOSE,RANDOM 154 mg/dL (74-106); MAGNESIUM 1.8 mg/dL (1.8-2.4); PHOSPHOROUS 2.8 mg/dL (2.5-4.9); SGOT/AST 12 U/L (15-37); SGPT/ALT 16 U/L (12-78); TOT PROT 7.7 g/dl (6.4-8.2)
[2015-10-31] MEDS: PANTOPRAZOLE SOD 40 MG SUSPENSION PACKET GT SCH (10:28)
[2015-10-31] MEDS: METOPROLOL TARTRATE 100 MG, METOPROLOL TARTRATE 25 MG GT SCH ×2 (10:28→22:34)
[2015-10-31] MEDS: AMINO ACIDS/PROTEIN HYDROLYS SUGAR-FREE 30 ML PACKET PO SCH ×2 (10:28→17:32)
[2015-10-31] MEDS: LISINOPRIL 20 MG TABLET (FP) GT SCH (10:28)
[2015-10-31] MEDS: amLODIPine BESYLATE 10 MG TABLET (FP) GT SCH (10:28)
[2015-10-31] MEDS: COLLAGENASE CLOSTRIDIUM HIST. 30 GRAMS TUBE TP SCH ×2 (10:28→22:34)
[2015-10-31] MEDS: MULTIVITAMINS THERAPEUTIC GT SCH (10:29)
[2015-10-31] MEDS: INSULIN DETEMIR 100 UNITS/ML MDV SQ SCH (22:31)
[2015-10-31] MEDS: ENOXAPARIN NA (PORCINE) 40 MG/0.4 ML DISP.SYRIN SQ SCH (22:31)
[2015-11-01] MEDS: INSULIN (NOVOLOG) ASPART 100 UNITS/ML 10ML VIAL SQ SCH ×5 (00:59→23:17)
[2015-11-01] MEDS: PIPERACILLIN/TAZOB 3.375 GM 3.375 GM in DEXTROSE 5%-WATER - 50 ML IVPB SCH ×3 (01:00→17:25)
[2015-11-01] MEDS: metroNIDAZOLE 250 MG TABLET PO SCH ×3 (06:17→23:15)
--- NOTE | 2015-11-01 08:08 | CONSULT ---
Consult Consult Specialty:: Vascular Surgery (Dr. Moser) Referred by:: Medicine Reason for Consultation:: Sacral Ulcer - History of Present Illness Chief Complaint: None offered by patient History of Present Illness: Called to evaluate sacral ulcer. 75 yo male with multiple medical problems. Trached. Bed-bound patient who remains in supine position. - History Source History Provided By: Medical Record Limitations to Obtaining History: Clinical Condition - Past Medical History Cardio/Vascular: Yes: HTN Endocrine: Yes: Diabetes Mellitus - Past Surgical History Past Surgical History: Yes: Hernia Repair - Alcohol/Substance Use Hx Alcohol Use: No - Smoking History Smoking history: Never smoked Have you smoked in the past 12 months: No Aproximately how many cigarettes per day: 0 Home Medications - Allergies Allergies/Adverse Reactions: Allergies Allergy/AdvReac Type Severity Reaction Status Date / Time No Known Allergies Allergy Verified 06/26/15 21:31 - Home Medications Home Medications: Ambulatory Orders Amino Acids/Protein Hydrolys [Prostat Sugar-Free Packet -] 30 ml GT DAILY packet 08/09/15 Amlodipine Besylate [Norvasc -] 10 mg GT DAILY tablet 08/09/15 Chlorhexidine Gluconate [Peridex -] 15 ml MM BID cup 08/09/15 Insulin (Levemir) [Levemir Flexpen -] 25 units SQ HS pen 08/09/15 Insulin (Novolog) [Novolog Flexpen -] 3 units SQ Q6HPO pen 08/09/15 Insulin Sliding Scale [Novolog Vial Sliding Scale -] 0 units SQ Q6HPO pen 08/09 Lisinopril [Prinivil -] 20 mg GT DAILY tablet 08/09/15 Metoprolol Tartrate Injection [Lopressor Injection -] 5 mg IVPB Q6H PRN #0 vial 08/09/15 Metoprolol Tartrate [Lopressor -] 100 mg GT BID tablet 08/09/15 Ondansetron Injection [Zofran Injection] 4 mg IVPB Q6H PRN #0 vial 08/09/15 Pantoprazole Suspension [Protonix Packets For Oral Suspension -] 40 mg GT DAILY packet 08/09/15 Vancomycin Oral Solution 125 mg GT Q6HPO ml 08/09/15 Family Disease History - Family Disease History Other Family History: non-contributory Review of Systems - Review of Systems Constitutional: denies: Chills, Fever Neck: reports: No Symptoms Cardiovascular: denies: Chest Pain, Palpitations Respiratory: denies: SOB, Wheezing Gastrointestinal: reports: No Symptoms. denies: Abdominal Pain Physical Exam Vital Signs: Vital Signs Temperature 98.9 F 11/01/15 07:38 Pulse Rate 91 H 11/01/15 07:38 Respiratory Rate 20 10/31/15 22:00 Blood Pressure 148/85 11/01/15 07:38 O2 Sat by Pulse Oximetry (%) 98 11/01/15 06:30 Constitutional: Yes: Calm, Thin Cardiovascular: Yes: Regular Rate and Rhythm, S1, S2 Respiratory: Yes: Regular, CTA Bilaterally Gastrointestinal: Yes: Normal Bowel Sounds, Soft Musculoskeletal: No: Joint Stiffness, Joint Swelling Extremities: Yes: WNL Edema: No Peripheral Pulses WNL: Yes (2+ b/l upper/lower extrem) Integumentary: Yes: Pressure Ulcer, Other (Sacral ulcer x2. approx 2x2cm. Both are pink. + granulation tissue to base. no undermining. no slough. no foul odor. ) Neurological: Yes: Aphasia, Pre-Existing Deficit Labs: CBC, BMP 10/31/15 07:15 10/31/15 07:15 Problem List - Problems (1) Sacral decubitus ulcer, stage II Code: L89.152 Assessment/Plan 1. Frequent repositioning of patient (RLR --> Supine --> LLR q 20 mins) 2. No surgical or enzymatic debridement needed 3. Xeroform dressing daily to sacral ulcers 4. Cont medical management On behalf of Dr. Moser, thank you for allowing us to participate in your patients care. Re-consult PRN.
[2015-11-01 08:09] LABS: BASOPHIL 1.4 % (0-2.0); EOSINOPHIL 6.1 % (0-4.5); MCH 28.9 pg (25.7-33.7); MCHC 33.7 g/dl (32.0-35.9); MEAN CELL VOLUME 85.8 fl (80-96); MEAN PLT VOLUME 8.5 fl (7.5-11.1); NEUTROPHILS 63.2 % (42.8-82.8); PLATELET COUNT 272 K/MM3 (134-434); RDW 16.5 % (11.9-15.9); WHITE BLOOD COUNT 5.7 K/mm3 (4.0-10.0)
[2015-11-01] MEDS: AMINO ACIDS/PROTEIN HYDROLYS SUGAR-FREE 30 ML PACKET PO SCH ×2 (08:31→17:32)
[2015-11-01 08:33] LABS: ALBUMIN 2.8 g/dl (3.4-5.0); ANION GAP 10 (8-16); CALCIUM 9.1 mg/dL (8.5-10.1); CO2 26 mmol/L (21-32); CREATININE 0.6 mg/dL (0.7-1.3); GLUCOSE,RANDOM 165 mg/dL (74-106); MAGNESIUM 1.5 mg/dL (1.8-2.4); SGOT/AST 14 U/L (15-37); SGPT/ALT 14 U/L (12-78)
[2015-11-01 08:35] LABS: ALK PHOS 88 U/L (45-117); BILIRUBIN,TOTAL 0.3 mg/dL (0.2-1.0); TOT PROT 6.8 g/dl (6.4-8.2)
[2015-11-01] MEDS: METOPROLOL TARTRATE 100 MG, METOPROLOL TARTRATE 25 MG GT SCH ×2 (09:09→23:16)
[2015-11-01] MEDS: LISINOPRIL 20 MG TABLET (FP) GT SCH (09:10)
[2015-11-01] MEDS: amLODIPine BESYLATE 10 MG TABLET (FP) GT SCH (09:10)
[2015-11-01] MEDS: ENOXAPARIN NA (PORCINE) 40 MG/0.4 ML DISP.SYRIN SQ SCH (09:11)
[2015-11-01] MEDS: MULTIVITAMINS THERAPEUTIC GT SCH (09:11)
[2015-11-01] MEDS: COLLAGENASE CLOSTRIDIUM HIST. 30 GRAMS TUBE TP SCH ×2 (09:11→23:16)
[2015-11-01] MEDS: PANTOPRAZOLE SOD 40 MG SUSPENSION PACKET GT SCH (09:11)
[2015-11-01] MEDS: ALBUTEROL SO4 0.083% IH SOL 2.5 MG/3 ML VIAL.NEB. NEB PRN (10:30)
--- NOTE | 2015-11-01 11:22 | CONSULT ---
Consult Consult Specialty:: Urology Reason for Consultation:: Hydronephrosis on Ct Scan - History Source History Provided By: Medical Record Limitations to Obtaining History: Intubated - Past Medical History Cardio/Vascular: Yes: HTN Endocrine: Yes: Diabetes Mellitus - Past Surgical History Past Surgical History: Yes: Hernia Repair - Alcohol/Substance Use Hx Alcohol Use: No - Smoking History Smoking history: Never smoked Have you smoked in the past 12 months: No Aproximately how many cigarettes per day: 0 Home Medications - Allergies Allergies/Adverse Reactions: Allergies Allergy/AdvReac Type Severity Reaction Status Date / Time No Known Allergies Allergy Verified 06/26/15 21:31 - Home Medications Home Medications: Ambulatory Orders Amino Acids/Protein Hydrolys [Prostat Sugar-Free Packet -] 30 ml GT DAILY packet 08/09/15 Amlodipine Besylate [Norvasc -] 10 mg GT DAILY tablet 08/09/15 Chlorhexidine Gluconate [Peridex -] 15 ml MM BID cup 08/09/15 Insulin (Levemir) [Levemir Flexpen -] 25 units SQ HS pen 08/09/15 Insulin (Novolog) [Novolog Flexpen -] 3 units SQ Q6HPO pen 08/09/15 Insulin Sliding Scale [Novolog Vial Sliding Scale -] 0 units SQ Q6HPO pen 08/09 Lisinopril [Prinivil -] 20 mg GT DAILY tablet 08/09/15 Metoprolol Tartrate Injection [Lopressor Injection -] 5 mg IVPB Q6H PRN #0 vial 08/09/15 Metoprolol Tartrate [Lopressor -] 100 mg GT BID tablet 08/09/15 Ondansetron Injection [Zofran Injection] 4 mg IVPB Q6H PRN #0 vial 08/09/15 Pantoprazole Suspension [Protonix Packets For Oral Suspension -] 40 mg GT DAILY packet 08/09/15 Vancomycin Oral Solution 125 mg GT Q6HPO ml 08/09/15 Family Disease History - Family Disease History Other Family History: non-contributory Physical Exam- Vital Signs: Vital Signs Temperature 99.2 F 11/01/15 08:56 Pulse Rate 100 H 11/01/15 08:56 Respiratory Rate 20 11/01/15 08:56 Blood Pressure 137/96 11/01/15 08:56 O2 Sat by Pulse Oximetry (%) 98 11/01/15 06:30 Labs: CBC, BMP 11/01/15 08:00 11/01/15 08:00 Assessment/Plan 75 yr old with multiple medical problem, who is incontinent, but voiding was found to have mild hydro on Ct Scan. Unable to get any history. Ct Scan reviewd. No evidence of any acute pathology. Please let us know if you need any further urology follow up. Pt. was seen on 10/31/2015. Thank you
[2015-11-01] MEDS: SODIUM CHLORIDE 1,000 ML IV SCH ×2 (11:45→17:25)
[2015-11-01] MEDS: POTASSIUM CHLORIDE 40 MEQ/30 ML UNIT DOSE CUP PO SCH ×2 (11:45→17:32)
--- NOTE | 2015-11-01 13:56 | PN ---
Progress Note (short form) - Note Progress Note: SUBJECTIVE: Patient seen and examined at bedside. Eyes open, non-purposeful movement. Does not track to voice. Reflex hand grasping. OBJECTIVE: Vitals Vital Signs Period Temp Pulse Resp BP Sys/Santiago Pulse Ox Last 24 Hr 98.6 F-983 F 71-100 20-21 137-149/83-96 96-100 GENERAL: The patient has periods of somnolence, periods of wakefulness. No signs of pain. HEAD: Normal with no signs of trauma. EYES: Pupils equal, round and reactive to light, sclera anicteric, conjunctiva clear. ENT: Ears normal, nares patent, oropharynx clear without exudates. Moist mucous membranes. Trach collar. NECK: Normal range of motion, supple without lymphadenopathy, JVD, or masses. LUNGS: Breath sounds equal, clear to auscultation bilaterally. No wheezes, and no crackles. HEART: Regular rate and rhythm, normal S1 and S2 without murmur, rub or gallop. ABDOMEN: Soft, nontender, normoactive bowel sounds. No guarding, no rebound. No masses. UPPER EXTREMITIES: 2+ pulses, warm, well-perfused, no edema. LOWER EXTREMITIES: 2+ pulses, warm, well-perfused, no edema. NEUROLOGICAL: Unable to assess. Laboratory Results - last 24 hr 10/31/15 10/31/15 11/01/15 17:50 21:14 05:55 WBC RBC Hgb Hct MCV MCHC RDW Plt Count MPV Neutrophils % Lymphocytes % Monocytes % Eosinophils % Basophils % Sodium Potassium Chloride Carbon Dioxide Anion Gap BUN Creatinine Creat Clearance w eGFR POC Glucometer 231 212 188 Random Glucose Calcium Magnesium Total Bilirubin AST ALT Alkaline Phosphatase Total Protein Albumin 11/01/15 11/01/15 11/01/15 08:00 11:33 16:51 WBC 5.7 RBC 3.36 L Hgb 9.7 L D Hct 28.8 L MCV 85.8 MCHC 33.7 RDW 16.5 H Plt Count 272 MPV 8.5 Neutrophils % 63.2 Lymphocytes % 24.3 Monocytes % 5.0 Eosinophils % 6.1 H Basophils % 1.4 Sodium 143 Potassium 3.4 L Chloride 107 Carbon Dioxide 26 Anion Gap 10 BUN 11 D Creatinine 0.6 L Creat Clearance w eGFR > 60 POC Glucometer 131 143 Random Glucose 165 H Calcium 9.1 Magnesium 1.5 L Total Bilirubin 0.3 D AST 14 L ALT 14 Alkaline Phosphatase 88 Total Protein 6.8 Albumin 2.8 L Current Medications Generic Name Dose Route Start Last Admin Trade Name Ginette PRN Reason Stop Dose Admin Acetaminophen 650 mg 09/09/15 09:29 10/28/15 17:53 Tylenol Oral Solution - GT 650 mg Q6H PRN Administration FEVER Albuterol Sulfate 1 amp 10/25/15 10:42 11/01/15 10:30 Ventolin 0.083% Nebulizer Soln - NEB 1 amp Q4H PRN Administration SHORT OF BREATH/WHEEZING Amino Acids 30 ml 09/15/15 17:30 11/01/15 17:32 Prostat Sugar-Free Packet - PO 30 ml BID@0800,1730 [facility] Administration Amlodipine Besylate 10 mg 09/09/15 10:00 11/01/15 09:10 Norvasc - GT 10 mg DAILY [facility] Administration Collagenase 1 applic 10/12/15 22:00 11/01/15 09:11 Santyl - TP 1 applic BID [facility] Administration Enoxaparin Sodium 40 mg 10/31/15 17:15 11/01/15 09:11 Lovenox - SQ 40 mg DAILY [facility] Administration Sodium Chloride 1,000 mls @ 100 mls/hr 10/28/15 14:15 11/01/15 17:25 Normal Saline - IV Not Given ASDIR [facility] Piperacillin Sod/Tazobactam 50 mls @ 100 mls/hr 10/28/15 15:30 11/01/15 17:25 Sod 3.375 gm/ Dextrose IVPB 100 mls/hr Q8H-IV [facility] Administration Ibuprofen 200 mg 09/09/15 09:29 10/28/15 13:23 Motrin Oral Suspension - PO 200 mg Q6H PRN Administration FEVER Insulin Aspart 0 units 09/09/15 12:00 11/01/15 17:20 Novolog Vial SQ Not Given Q6HPO [facility] Protocol Insulin Detemir 28 units 09/09/15 22:00 10/31/15 22:31 Levemir Vial SQ 28 units HS [facility] Administration Lisinopril 40 mg 09/09/15 10:00 11/01/15 09:10 Prinivil - GT 40 mg DAILY [facility] Administration Metoprolol Tartrate 5 mg 09/09/15 09:29 Lopressor Injection - IVPB Q6H PRN HYPERTENSION Metoprolol Tartrate 100 mg/ 125 mg 09/17/15 10:00 11/01/15 09:09 Metoprolol Tartrate 25 mg GT 125 mg BID [facility] Administration Metronidazole 500 mg 10/29/15 14:00 11/01/15 13:58 Flagyl - PO 500 mg TID [facility] Administration Multivitamins 5 ml 09/09/15 10:00 11/01/15 09:11 Thera-Plus - GT 5 ml DAILY [facility] Administration Ondansetron HCl 4 mg 09/09/15 09:29 Zofran Injection - IVPB Q6H PRN NAUSEA Pantoprazole Sodium 40 mg 09/09/15 10:00 11/01/15 09:11 Protonix Packets For Oral Suspension - GT 40 mg DAILY [facility] Administration Potassium Chloride 40 meq 11/01/15 12:00 11/01/15 17:32 Kcl Oral Solution - PO 11/01/15 18:01 40 meq Q6H [facility] Administration Assessment & Plan: 75 year old male with PMHx of HTN, IDDM, inguinal hernia who presented to the ED with diverticular bleed s/p right hemicolectomy with 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 Over past 24 hours, spiked fever and white count. Leukocytosis, resolved Fever, resolved Lactic acidosis Diarrhea --WBC has trended to WNL, afebrile --blood cultures from 10/28 NGTD; urine culture from 10/28 negative --C.diff antigen and antibody from 10/29 negative, C.diff PCR from 10/30 pending --continue Zosyn (day #4), metronidazole (day #3) Respiratory failure secondary to anoxic brain injury --Cont trach collar --Albuterol neb PRN Hypertension Lisinopril/Metoprolol/Amlodipine Multiple pressure ulcers IDDM --Levemir 28 units HS --Novolog sliding scale coverage --fingersticks 5. F/E/N: - Tube feeds: Vital 1.5 @60ml/hr 6. Prophylaxis: - SCDs bilaterally - Lovenox CODE STATUS: DNR
--- NOTE | 2015-11-01 15:46 | PN ---
Progress Note (short form) - Note Progress Note: ID Since starting Zosyn and metronidazole his fevers have been flat. Still has diarrhea but getting feedings. Has rectal tubes Selected Entries 11/01/15 15:21 Temperature 98.6 F Pulse Rate 86 Respiratory 21 Rate Blood Pressure 149/85 NeckTracheostomy Abd PEG tube Sacral wound Laboratory Tests 11/01/15 08:00 WBC 5.7 Hgb 9.7 L D Hct 28.8 L Plt Count 272 BUN 11 D Creatinine 0.6 L Microbiology 10/29/15 11:15 Stool Clostridium difficile Antigen (MACHO) - Final 10/29/15 11:15 Stool Clostridium difficile Toxin Assay - Final 10/28/15 10:50 Blood - Peripheral Venous Blood Culture - Preliminary NO GROWTH OBTAINED AFTER 96 HOURS, INCUBATION TO CONTINUE FOR 1 DAYS. Assessment Respiratory failure Fevers resolved on antibiotics Stage 2 decubitus Issue of C diff infection discussed but toxin neg(PCR ordered) Plan Continue zosyn for 7 days Flagyl pending C diff PCR Martín HERRERA
[2015-11-01] MEDS: INSULIN DETEMIR 100 UNITS/ML MDV SQ SCH (23:15)
[2015-11-02] MEDS: PIPERACILLIN/TAZOB 3.375 GM 3.375 GM in DEXTROSE 5%-WATER - 50 ML IVPB SCH ×3 (03:21→18:56)
[2015-11-02] MEDS: metroNIDAZOLE 250 MG TABLET PO SCH ×3 (06:13→22:00)
[2015-11-02] MEDS: INSULIN (NOVOLOG) ASPART 100 UNITS/ML 10ML VIAL SQ SCH ×4 (06:13→23:31)
[2015-11-02] MEDS: AMINO ACIDS/PROTEIN HYDROLYS SUGAR-FREE 30 ML PACKET PO SCH ×2 (08:00→18:56)
[2015-11-02 09:47] LABS: BASOPHIL 0.6 % (0-2.0); EOSINOPHIL 5.7 % (0-4.5); MCHC 33.6 g/dl (32.0-35.9); MEAN CELL VOLUME 86.3 fl (80-96); NEUTROPHILS 66.8 % (42.8-82.8); PLATELET COUNT 259 K/MM3 (134-434); WHITE BLOOD COUNT 7.3 K/mm3 (4.0-10.0)
[2015-11-02] MEDS: METOPROLOL TARTRATE 100 MG, METOPROLOL TARTRATE 25 MG GT SCH ×2 (10:07→22:00)
[2015-11-02] MEDS: ENOXAPARIN NA (PORCINE) 40 MG/0.4 ML DISP.SYRIN SQ SCH (10:07)
[2015-11-02] MEDS: MULTIVITAMINS THERAPEUTIC GT SCH (10:08)
[2015-11-02] MEDS: LISINOPRIL 20 MG TABLET (FP) GT SCH (10:08)
[2015-11-02] MEDS: COLLAGENASE CLOSTRIDIUM HIST. 30 GRAMS TUBE TP SCH ×2 (10:08→22:00)
[2015-11-02] MEDS: amLODIPine BESYLATE 10 MG TABLET (FP) GT SCH (10:08)
[2015-11-02] MEDS: PANTOPRAZOLE SOD 40 MG SUSPENSION PACKET GT SCH (10:08)
[2015-11-02 10:23] LABS: ALBUMIN 2.9 g/dl (3.4-5.0); ALK PHOS 83 U/L (45-117); ANION GAP 8 (8-16); BILIRUBIN,TOTAL 0.2 mg/dL (0.2-1.0); CALCIUM 9.5 mg/dL (8.5-10.1); CO2 28 mmol/L (21-32); CREATININE 0.6 mg/dL (0.7-1.3); GLUCOSE,RANDOM 195 mg/dL (74-106); MAGNESIUM 1.9 mg/dL (1.8-2.4); SGOT/AST 13 U/L (15-37); SGPT/ALT 19 U/L (12-78)
[2015-11-02] MEDS: ALBUTEROL SO4 0.083% IH SOL 2.5 MG/3 ML VIAL.NEB. NEB PRN (11:02)
[2015-11-02] MEDS: SODIUM CHLORIDE 1,000 ML IV SCH (14:30)
--- NOTE | 2015-11-02 18:10 | PN ---
Progress Note (short form) - Note Progress Note: Hospitalist Progress Note SUBJECTIVE: Patient seen and examined at bedside. NAD noted. Awake. OBJECTIVE: Last Vital Signs Temp Pulse Resp BP Pulse Ox 99.4 F 82 22 157/99 100 11/02/15 14:55 11/02/15 14:55 11/02/15 14:55 11/02/15 10:00 11/02/15 12:45 GENERAL: no acute distress. Awake. PULMONARY:Tach collar placed, rhonchi. CARDIOVASCULAR: nS1,S2, RRR, no RMG ABDOMINAL: soft, nontender, nondistended, normoactive bowel sounds. Peg tube CDI. EXTREMITIES: warm, well perfused, no edema. 2+ DP/PT bilaterally NEUROLOGICAL:spontaneous eye movement, non verbal. Unable to fully assess. CBCD WBC 7.3 K/mm3 (4.0-10.0) 11/02/15 07:45 RBC 3.20 M/mm3 (4.00-5.60) L 11/02/15 07:45 Hgb 9.3 GM/dL (11.7-16.9) L 11/02/15 07:45 Hct 27.7 % (35.4-49) L 11/02/15 07:45 MCV 86.3 fl (80-96) 11/02/15 07:45 MCHC 33.6 g/dl (32.0-35.9) 11/02/15 07:45 RDW 16.0 % (11.9-15.9) H 11/02/15 07:45 Plt Count 259 K/MM3 (134-434) 11/02/15 07:45 MPV 8.0 fl (7.5-11.1) 11/02/15 07:45 CMP Sodium 142 mmol/L (136-145) 11/02/15 07:45 Potassium 3.6 mmol/L (3.5-5.1) 11/02/15 07:45 Chloride 106 mmol/L (98-107) 11/02/15 07:45 Carbon Dioxide 28 mmol/L (21-32) 11/02/15 07:45 Anion Gap 8 (8-16) 11/02/15 07:45 BUN 11 mg/dL (7-18) 11/02/15 07:45 Creatinine 0.6 mg/dL (0.7-1.3) L 11/02/15 07:45 Creat Clearance w eGFR > 60 (>60) 11/02/15 07:45 Calcium 9.5 mg/dL (8.5-10.1) 11/02/15 07:45 Total Bilirubin 0.2 mg/dL (0.2-1.0) D 11/02/15 07:45 AST 13 U/L (15-37) L 11/02/15 07:45 ALT 19 U/L (12-78) D 11/02/15 07:45 Alkaline Phosphatase 83 U/L (45-117) 11/02/15 07:45 Total Protein 7.0 g/dl (6.4-8.2) 11/02/15 07:45 Albumin 2.9 g/dl (3.4-5.0) L 11/02/15 07:45 Current Medications Generic Name Dose Route Start Last Admin Trade Name Freq PRN Reason Stop Dose Admin Acetaminophen 650 mg 09/09/15 09:29 10/28/15 17:53 Tylenol Oral Solution - GT 650 mg Q6H PRN Administration FEVER Albuterol Sulfate 1 amp 10/25/15 10:42 11/02/15 11:02 Ventolin 0.083% Nebulizer Soln - NEB 1 amp Q4H PRN Administration SHORT OF BREATH/WHEEZING Amino Acids 30 ml 09/15/15 17:30 11/02/15 08:00 Prostat Sugar-Free Packet - PO 30 ml BID@0800,1730 [facility] Administration Amlodipine Besylate 10 mg 09/09/15 10:00 11/02/15 10:08 Norvasc - GT 10 mg DAILY [facility] Administration Collagenase 1 applic 10/12/15 22:00 11/02/15 10:08 Santyl - TP 1 applic BID [facility] Administration Enoxaparin Sodium 40 mg 10/31/15 17:15 11/02/15 10:07 Lovenox - SQ 40 mg DAILY [facility] Administration Sodium Chloride 1,000 mls @ 100 mls/hr 10/28/15 14:15 11/01/15 17:25 Normal Saline - IV Not Given ASDIR KWAKU Piperacillin Sod/Tazobactam 50 mls @ 100 mls/hr 10/28/15 15:30 11/02/15 10:05 Sod 3.375 gm/ Dextrose IVPB 100 mls/hr Q8H-IV [facility] Administration Ibuprofen 200 mg 09/09/15 09:29 10/28/15 13:23 Motrin Oral Suspension - PO 200 mg Q6H PRN Administration FEVER Insulin Aspart 0 units 09/09/15 12:00 11/02/15 11:59 Novolog Vial SQ Not Given Q6HPO [facility] Protocol Insulin Detemir 28 units 09/09/15 22:00 11/01/15 23:15 Levemir Vial SQ 28 units HS [facility] Administration Lisinopril 40 mg 09/09/15 10:00 11/02/15 10:08 Prinivil - GT 40 mg DAILY [facility] Administration Metoprolol Tartrate 5 mg 09/09/15 09:29 Lopressor Injection - IVPB Q6H PRN HYPERTENSION Metoprolol Tartrate 100 mg/ 125 mg 09/17/15 10:00 11/02/15 10:07 Metoprolol Tartrate 25 mg GT 125 mg BID [facility] Administration Metronidazole 500 mg 10/29/15 14:00 11/02/15 06:13 Flagyl - PO 500 mg TID [facility] Administration Multivitamins 5 ml 09/09/15 10:00 11/02/15 10:08 Thera-Plus - GT 5 ml DAILY [facility] Administration Ondansetron HCl 4 mg 09/09/15 09:29 Zofran Injection - IVPB Q6H PRN NAUSEA Pantoprazole Sodium 40 mg 09/09/15 10:00 11/02/15 10:08 Protonix Packets For Oral Suspension - GT 40 mg DAILY [facility] Administration Assessment/Plan: Patient is a 75 year old male with PMHx of HTN, IDDM, inguinal hernia who presented to the ED with diverticular bleed s/p Righ hemicolectomy with 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 Leukocytosis, resolved Fever, resolved Lactic acidosis Diarrhea -WBC has trended to WNL, afebrile -blood cultures from 10/28 NGTD; urine culture from 10/28 negative -C.diff antigen and antibody from 10/29 negative, C.diff PCR from 10/30 pending -continue Zosyn (day #5), metronidazole (day #4)-- continue zosyn for total of 7 days. Respiratory failure secondary to anoxic brain injury -Cont trach collar -Albuterol neb PRN Hypertension -Continue Lisinopril/Metoprolol/Amlodipine Multiple pressure ulcers IDDM -Levemir 28 units HS -Novolog sliding scale coverage -fingersticks F/E/N: - Tube feeds: Vital 1.5 @60ml/hr Prophylaxis: - SCDs bilaterally - Lovenox CODE STATUS: DNR
[2015-11-02] MEDS: INSULIN DETEMIR 100 UNITS/ML MDV SQ SCH (23:00)
[2015-11-03] MEDS: INSULIN (NOVOLOG) ASPART 100 UNITS/ML 10ML VIAL SQ SCH ×5 (01:00→23:37)
[2015-11-03] MEDS: PIPERACILLIN/TAZOB 3.375 GM 3.375 GM in DEXTROSE 5%-WATER - 50 ML IVPB SCH ×3 (01:03→18:12)
[2015-11-03] MEDS: metroNIDAZOLE 250 MG TABLET PO SCH (06:44)
[2015-11-03] MEDS: AMINO ACIDS/PROTEIN HYDROLYS SUGAR-FREE 30 ML PACKET PO SCH ×2 (09:01→18:11)
--- NOTE | 2015-11-03 09:59 | PN ---
Progress Note, Physician History of Present Illness: Awake, responsive No acute distress Afebrile - Current Medication List Current Medications: Active Medications Acetaminophen (Tylenol Oral Solution -) 650 mg GT Q6H PRN PRN Reason: FEVER Last Admin: 10/28/15 17:53 Dose: 650 mg Albuterol Sulfate (Ventolin 0.083% Nebulizer Soln -) 1 amp NEB Q4H PRN PRN Reason: SHORT OF BREATH/WHEEZING Last Admin: 11/02/15 11:02 Dose: 1 amp Amino Acids (Prostat Sugar-Free Packet -) 30 ml PO BID@0800,1730 [facility] Last Admin: 11/03/15 09:01 Dose: 30 ml Amlodipine Besylate (Norvasc -) 10 mg GT DAILY [facility] Last Admin: 11/02/15 10:08 Dose: 10 mg Collagenase (Santyl -) 1 applic TP BID [facility] Last Admin: 11/02/15 22:00 Dose: 1 applic Enoxaparin Sodium (Lovenox -) 40 mg SQ DAILY [facility] Last Admin: 11/02/15 10:07 Dose: 40 mg Sodium Chloride (Normal Saline -) 1,000 mls @ 100 mls/hr IV ASDIR [facility] Last Admin: 11/02/15 14:30 Dose: 100 mls/hr Piperacillin Sod/Tazobactam (Sod 3.375 gm/ Dextrose) 50 mls @ 100 mls/hr IVPB Q8H-IV [facility] Last Admin: 11/03/15 01:03 Dose: 100 mls/hr Ibuprofen (Motrin Oral Suspension -) 200 mg PO Q6H PRN PRN Reason: FEVER Last Admin: 10/28/15 13:23 Dose: 200 mg Insulin Aspart (Novolog Vial) 0 units SQ Q6HPO [facility] PRN Reason: Protocol Last Admin: 11/03/15 06:37 Dose: 2 units Insulin Detemir (Levemir Vial) 28 units SQ HS [facility] Last Admin: 11/02/15 23:00 Dose: 28 units Lisinopril (Prinivil -) 40 mg GT DAILY [facility] Last Admin: 11/02/15 10:08 Dose: 40 mg Metoprolol Tartrate (Lopressor Injection -) 5 mg IVPB Q6H PRN PRN Reason: HYPERTENSION Metoprolol Tartrate 100 mg/ (Metoprolol Tartrate 25 mg) 125 mg GT BID [facility] Last Admin: 11/02/15 22:00 Dose: 125 mg Metronidazole (Flagyl -) 500 mg PO TID [facility] Last Admin: 11/03/15 06:44 Dose: 500 mg Multivitamins (Thera-Plus -) 5 ml GT DAILY [facility] Last Admin: 11/02/15 10:08 Dose: 5 ml Ondansetron HCl (Zofran Injection -) 4 mg IVPB Q6H PRN PRN Reason: NAUSEA Pantoprazole Sodium (Protonix Packets For Oral Suspension -) 40 mg GT DAILY [facility] Last Admin: 11/02/15 10:08 Dose: 40 mg - Objective Vital Signs: Vital Signs Temperature 98.8 F 11/03/15 07:52 Pulse Rate 82 11/03/15 07:52 Respiratory Rate 20 11/03/15 07:52 Blood Pressure 149/88 11/03/15 07:52 O2 Sat by Pulse Oximetry (%) 100 11/02/15 12:45 Constitutional: Yes: No Distress Cardiovascular: Yes: Regular Rate and Rhythm, S1, S2 Respiratory: Yes: Diminished Gastrointestinal: Yes: Normal Bowel Sounds, Soft. No: Tenderness Edema: No Labs: CBC, BMP 11/02/15 07:45 11/02/15 07:45 INR, PTT INR 1.32 (0.86-1.14) H 09/03/15 19:20 Assessment/Plan Respiratory failure Fever/ leukocytosis- resolved Decubitus ulcer Diarrhea C difficile PCR (-) Continue zosyn/ flagyl additional 24hr
[2015-11-03] MEDS: LISINOPRIL 20 MG TABLET (FP) GT SCH (10:50)
[2015-11-03] MEDS: METOPROLOL TARTRATE 100 MG, METOPROLOL TARTRATE 25 MG GT SCH ×2 (10:50→22:28)
[2015-11-03] MEDS: amLODIPine BESYLATE 10 MG TABLET (FP) GT SCH (10:51)
[2015-11-03] MEDS: PANTOPRAZOLE SOD 40 MG SUSPENSION PACKET GT SCH (10:51)
[2015-11-03] MEDS: ENOXAPARIN NA (PORCINE) 40 MG/0.4 ML DISP.SYRIN SQ SCH (10:51)
[2015-11-03] MEDS: MULTIVITAMINS THERAPEUTIC GT SCH (10:51)
[2015-11-03] MEDS: COLLAGENASE CLOSTRIDIUM HIST. 30 GRAMS TUBE TP SCH ×2 (11:00→22:28)
[2015-11-03 11:40] LABS: MCH 28.4 pg (25.7-33.7); MCHC 32.9 g/dl (32.0-35.9); MEAN CELL VOLUME 86.5 fl (80-96); MEAN PLT VOLUME 7.5 fl (7.5-11.1); PLATELET COUNT 289 K/MM3 (134-434); RDW 16.5 % (11.9-15.9); WHITE BLOOD COUNT 9.4 K/mm3 (4.0-10.0)
[2015-11-03 12:00] LABS: CALCIUM 9.5 mg/dL (8.5-10.1); CREATININE 0.7 mg/dL (0.7-1.3)
--- NOTE | 2015-11-03 15:48 | PN ---
Progress Note (short form) - Note Progress Note: Hospitalist Progress Note SUBJECTIVE: Patient seen and examined at bedside. NAD noted. Awake. does not follow commands OBJECTIVE: Last Vital Signs Temp Pulse Resp BP Pulse Ox 99.3 F 90 22 145/83 97 11/03/15 14:34 11/03/15 14:34 11/03/15 14:34 11/03/15 14:00 11/03/15 09:55 GENERAL: no acute distress. Awake. PULMONARY:Tach collar placed, rhonchi. CARDIOVASCULAR: nS1,S2, RRR, no RMG ABDOMINAL: soft, nontender, nondistended, normoactive bowel sounds. Peg tube CDI. EXTREMITIES: warm, well perfused, no edema. 2+ DP/PT bilaterally NEUROLOGICAL:spontaneous eye movement, non verbal. Unable to fully assess. CBCD WBC 9.4 K/mm3 (4.0-10.0) 11/03/15 11:05 RBC 3.24 M/mm3 (4.00-5.60) L 11/03/15 11:05 Hgb 9.2 GM/dL (11.7-16.9) L 11/03/15 11:05 Hct 28.0 % (35.4-49) L 11/03/15 11:05 MCV 86.5 fl (80-96) 11/03/15 11:05 MCHC 32.9 g/dl (32.0-35.9) 11/03/15 11:05 RDW 16.5 % (11.9-15.9) H 11/03/15 11:05 Plt Count 289 K/MM3 (134-434) 11/03/15 11:05 MPV 7.5 fl (7.5-11.1) 11/03/15 11:05 CMP Sodium 143 mmol/L (136-145) 11/03/15 11:05 Potassium 3.7 mmol/L (3.5-5.1) 11/03/15 11:05 Chloride 107 mmol/L (98-107) 11/03/15 11:05 Carbon Dioxide 27 mmol/L (21-32) 11/03/15 11:05 Anion Gap 9 (8-16) 11/03/15 11:05 BUN 12 mg/dL (7-18) 11/03/15 11:05 Creatinine 0.7 mg/dL (0.7-1.3) 11/03/15 11:05 Creat Clearance w eGFR > 60 (>60) 11/02/15 07:45 Calcium 9.5 mg/dL (8.5-10.1) 11/03/15 11:05 Total Bilirubin 0.2 mg/dL (0.2-1.0) D 11/02/15 07:45 AST 13 U/L (15-37) L 11/02/15 07:45 ALT 19 U/L (12-78) D 11/02/15 07:45 Alkaline Phosphatase 83 U/L (45-117) 11/02/15 07:45 Total Protein 7.0 g/dl (6.4-8.2) 11/02/15 07:45 Albumin 2.9 g/dl (3.4-5.0) L 11/02/15 07:45 Current Medications Generic Name Dose Route Start Last Admin Trade Name Freq PRN Reason Stop Dose Admin Acetaminophen 650 mg 09/09/15 09:29 10/28/15 17:53 Tylenol Oral Solution - GT 650 mg Q6H PRN Administration FEVER Albuterol Sulfate 1 amp 10/25/15 10:42 11/02/15 11:02 Ventolin 0.083% Nebulizer Soln - NEB 1 amp Q4H PRN Administration SHORT OF BREATH/WHEEZING Amino Acids 30 ml 09/15/15 17:30 11/03/15 09:01 Prostat Sugar-Free Packet - PO 30 ml BID@0800,1730 [facility] Administration Amlodipine Besylate 10 mg 09/09/15 10:00 11/03/15 10:51 Norvasc - GT 10 mg DAILY [facility] Administration Collagenase 1 applic 10/12/15 22:00 11/02/15 22:00 Santyl - TP 1 applic BID [facility] Administration Enoxaparin Sodium 40 mg 10/31/15 17:15 11/03/15 10:51 Lovenox - SQ 40 mg DAILY [facility] Administration Sodium Chloride 1,000 mls @ 100 mls/hr 10/28/15 14:15 11/02/15 14:30 Normal Saline - IV 100 mls/hr ASDIR [facility] Administration Piperacillin Sod/Tazobactam 50 mls @ 100 mls/hr 10/28/15 15:30 11/03/15 10:52 Sod 3.375 gm/ Dextrose IVPB 100 mls/hr Q8H-IV [facility] Administration Ibuprofen 200 mg 09/09/15 09:29 10/28/15 13:23 Motrin Oral Suspension - PO 200 mg Q6H PRN Administration FEVER Insulin Aspart 0 units 09/09/15 12:00 11/03/15 12:51 Novolog Vial SQ 2 units Q6HPO [facility] Administration Protocol Insulin Detemir 28 units 09/09/15 22:00 11/02/15 23:00 Levemir Vial SQ 28 units HS [facility] Administration Lisinopril 40 mg 09/09/15 10:00 11/03/15 10:50 Prinivil - GT 40 mg DAILY [facility] Administration Metoprolol Tartrate 5 mg 09/09/15 09:29 Lopressor Injection - IVPB Q6H PRN HYPERTENSION Metoprolol Tartrate 100 mg/ 125 mg 09/17/15 10:00 11/03/15 10:50 Metoprolol Tartrate 25 mg GT 25 mg BID [facility] Administration Multivitamins 5 ml 09/09/15 10:00 11/03/15 10:51 Thera-Plus - GT 5 ml DAILY [facility] Administration Ondansetron HCl 4 mg 09/09/15 09:29 Zofran Injection - IVPB Q6H PRN NAUSEA Pantoprazole Sodium 40 mg 09/09/15 10:00 11/03/15 10:51 Protonix Packets For Oral Suspension - GT 40 mg DAILY [facility] Administration Assessment/Plan: Patient is a 75 year old male with PMHx of HTN, IDDM, inguinal hernia who presented to the ED with diverticular bleed s/p Righ hemicolectomy with 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 Leukocytosis, resolved Fever, resolved Lactic acidosis- resolved Diarrhea -WBC has trended to WNL, afebrile -blood cultures from 10/28 NGTD; urine culture from 10/28 negative -C.diff antigen and antibody from 10/29 negative, C.diff PCR from 10/30 negative -continue Zosyn Respiratory failure secondary to anoxic brain injury -Cont trach collar -Albuterol neb PRN Hypertension -Continue Lisinopril/Metoprolol/Amlodipine Multiple pressure ulcers IDDM -Levemir 28 units HS -Novolog sliding scale coverage -fingersticks F/E/N: - Tube feeds: Vital 1.5 @60ml/hr Prophylaxis: - SCDs bilaterally - Lovenox CODE STATUS: DNR
[2015-11-03] MEDS: SODIUM CHLORIDE 1,000 ML IV SCH (19:45)
[2015-11-03] MEDS: INSULIN DETEMIR 100 UNITS/ML MDV SQ SCH (22:29)
[2015-11-04] MEDS: PIPERACILLIN/TAZOB 3.375 GM 3.375 GM in DEXTROSE 5%-WATER - 50 ML IVPB SCH ×4 (03:00→18:55)
[2015-11-04] MEDS: INSULIN (NOVOLOG) ASPART 100 UNITS/ML 10ML VIAL SQ SCH ×4 (06:40→23:53)
[2015-11-04] MEDS: AMINO ACIDS/PROTEIN HYDROLYS SUGAR-FREE 30 ML PACKET PO SCH ×2 (09:10→18:00)
[2015-11-04] MEDS: METOPROLOL TARTRATE 100 MG, METOPROLOL TARTRATE 25 MG GT SCH ×2 (10:58→23:00)
[2015-11-04] MEDS: ENOXAPARIN NA (PORCINE) 40 MG/0.4 ML DISP.SYRIN SQ SCH (10:59)
[2015-11-04] MEDS: PANTOPRAZOLE SOD 40 MG SUSPENSION PACKET GT SCH (10:59)
[2015-11-04] MEDS: amLODIPine BESYLATE 10 MG TABLET (FP) GT SCH (10:59)
[2015-11-04] MEDS: MULTIVITAMINS THERAPEUTIC GT SCH (10:59)
[2015-11-04] MEDS: LISINOPRIL 20 MG TABLET (FP) GT SCH (10:59)
[2015-11-04] MEDS: SODIUM CHLORIDE 1,000 ML IV SCH ×3 (11:20→23:56)
[2015-11-04] MEDS: COLLAGENASE CLOSTRIDIUM HIST. 30 GRAMS TUBE TP SCH ×2 (12:00→22:59)
--- NOTE | 2015-11-04 16:42 | PN ---
Progress Note, Physician History of Present Illness: Awake, alert No acute distress Afebrile WBC normal - Current Medication List Current Medications: Active Medications Acetaminophen (Tylenol Oral Solution -) 650 mg GT Q6H PRN PRN Reason: FEVER Last Admin: 10/28/15 17:53 Dose: 650 mg Albuterol Sulfate (Ventolin 0.083% Nebulizer Soln -) 1 amp NEB Q4H PRN PRN Reason: SHORT OF BREATH/WHEEZING Last Admin: 11/02/15 11:02 Dose: 1 amp Amino Acids (Prostat Sugar-Free Packet -) 30 ml PO BID@0800,1730 [facility] Last Admin: 11/04/15 09:10 Dose: 30 ml Amlodipine Besylate (Norvasc -) 10 mg GT DAILY [facility] Last Admin: 11/04/15 10:59 Dose: 10 mg Collagenase (Santyl -) 1 applic TP BID [facility] Last Admin: 11/03/15 22:28 Dose: 1 applic Enoxaparin Sodium (Lovenox -) 40 mg SQ DAILY [facility] Last Admin: 11/04/15 10:59 Dose: 40 mg Sodium Chloride (Normal Saline -) 1,000 mls @ 100 mls/hr IV ASDIR [facility] Last Admin: 11/04/15 11:20 Dose: 100 mls/hr Ibuprofen (Motrin Oral Suspension -) 200 mg PO Q6H PRN PRN Reason: FEVER Last Admin: 10/28/15 13:23 Dose: 200 mg Insulin Aspart (Novolog Vial) 0 units SQ Q6HPO [facility] PRN Reason: Protocol Last Admin: 11/04/15 12:30 Dose: Not Given Insulin Detemir (Levemir Vial) 28 units SQ HS [facility] Last Admin: 11/03/15 22:29 Dose: 28 units Lisinopril (Prinivil -) 40 mg GT DAILY [facility] Last Admin: 11/04/15 10:59 Dose: 40 mg Metoprolol Tartrate (Lopressor Injection -) 5 mg IVPB Q6H PRN PRN Reason: HYPERTENSION Metoprolol Tartrate 100 mg/ (Metoprolol Tartrate 25 mg) 125 mg GT BID [facility] Last Admin: 11/04/15 10:58 Dose: 125 mg Multivitamins (Thera-Plus -) 5 ml GT DAILY [facility] Last Admin: 11/04/15 10:59 Dose: 5 ml Ondansetron HCl (Zofran Injection -) 4 mg IVPB Q6H PRN PRN Reason: NAUSEA Pantoprazole Sodium (Protonix Packets For Oral Suspension -) 40 mg GT DAILY [facility] Last Admin: 11/04/15 10:59 Dose: 40 mg - Objective Vital Signs: Vital Signs Temperature 99.9 F H 11/04/15 14:13 Pulse Rate 90 11/04/15 14:13 Respiratory Rate 22 11/04/15 14:13 Blood Pressure 147/90 11/04/15 10:52 O2 Sat by Pulse Oximetry (%) 98 11/04/15 08:10 Constitutional: Yes: No Distress Eyes: Yes: Conjunctiva Clear Cardiovascular: Yes: Regular Rate and Rhythm, S1, S2 Respiratory: Yes: Diminished Gastrointestinal: Yes: Normal Bowel Sounds, Soft. No: Tenderness Labs: CBC, BMP 11/03/15 11:05 11/03/15 11:05 INR, PTT INR 1.32 (0.86-1.14) H 09/03/15 19:20 Assessment/Plan Respiratory failure Fever/ leukocytosis- resolved Decubitus ulcer Diarrhea C difficile PCR (-) Discontinue zosyn/ flagyl , observe off
--- NOTE | 2015-11-04 16:55 | PN ---
Progress Note (short form) - Note Progress Note: Hospitalist Progress Note SUBJECTIVE: Patient seen and examined at bedside. NAD noted. Awake. OBJECTIVE: Last Vital Signs Temp Pulse Resp BP Pulse Ox 99.9 F H 90 22 147/90 98 11/04/15 14:13 11/04/15 14:13 11/04/15 14:13 11/04/15 10:52 11/04/15 08:10 GENERAL: no acute distress. Awake. PULMONARY:Tach collar placed, rhonchi. CARDIOVASCULAR: nS1,S2, RRR, no RMG ABDOMINAL: soft, nontender, nondistended, normoactive bowel sounds. Peg tube CDI. EXTREMITIES: warm, well perfused, no edema. 2+ DP/PT bilaterally NEUROLOGICAL:spontaneous eye movement, non verbal. Unable to fully assess. CBCD WBC 9.4 K/mm3 (4.0-10.0) 11/03/15 11:05 RBC 3.24 M/mm3 (4.00-5.60) L 11/03/15 11:05 Hgb 9.2 GM/dL (11.7-16.9) L 11/03/15 11:05 Hct 28.0 % (35.4-49) L 11/03/15 11:05 MCV 86.5 fl (80-96) 11/03/15 11:05 MCHC 32.9 g/dl (32.0-35.9) 11/03/15 11:05 RDW 16.5 % (11.9-15.9) H 11/03/15 11:05 Plt Count 289 K/MM3 (134-434) 11/03/15 11:05 MPV 7.5 fl (7.5-11.1) 11/03/15 11:05 CMP Sodium 143 mmol/L (136-145) 11/03/15 11:05 Potassium 3.7 mmol/L (3.5-5.1) 11/03/15 11:05 Chloride 107 mmol/L (98-107) 11/03/15 11:05 Carbon Dioxide 27 mmol/L (21-32) 11/03/15 11:05 Anion Gap 9 (8-16) 11/03/15 11:05 BUN 12 mg/dL (7-18) 11/03/15 11:05 Creatinine 0.7 mg/dL (0.7-1.3) 11/03/15 11:05 Creat Clearance w eGFR > 60 (>60) 11/02/15 07:45 Calcium 9.5 mg/dL (8.5-10.1) 11/03/15 11:05 Total Bilirubin 0.2 mg/dL (0.2-1.0) D 11/02/15 07:45 AST 13 U/L (15-37) L 11/02/15 07:45 ALT 19 U/L (12-78) D 11/02/15 07:45 Alkaline Phosphatase 83 U/L (45-117) 11/02/15 07:45 Total Protein 7.0 g/dl (6.4-8.2) 11/02/15 07:45 Albumin 2.9 g/dl (3.4-5.0) L 11/02/15 07:45 Current Medications Generic Name Dose Route Start Last Admin Trade Name Freq PRN Reason Stop Dose Admin Acetaminophen 650 mg 09/09/15 09:29 10/28/15 17:53 Tylenol Oral Solution - GT 650 mg Q6H PRN Administration FEVER Albuterol Sulfate 1 amp 10/25/15 10:42 11/02/15 11:02 Ventolin 0.083% Nebulizer Soln - NEB 1 amp Q4H PRN Administration SHORT OF BREATH/WHEEZING Amino Acids 30 ml 09/15/15 17:30 11/04/15 09:10 Prostat Sugar-Free Packet - PO 30 ml BID@0800,1730 KWAKU Administration Amlodipine Besylate 10 mg 09/09/15 10:00 11/04/15 10:59 Norvasc - GT 10 mg DAILY KWAKU Administration Collagenase 1 applic 10/12/15 22:00 11/03/15 22:28 Santyl - TP 1 applic BID KWKAU Administration Enoxaparin Sodium 40 mg 10/31/15 17:15 11/04/15 10:59 Lovenox - SQ 40 mg DAILY KWAKU Administration Sodium Chloride 1,000 mls @ 100 mls/hr 10/28/15 14:15 11/04/15 11:20 Normal Saline - IV 100 mls/hr ASDIR KWAKU Administration Ibuprofen 200 mg 09/09/15 09:29 10/28/15 13:23 Motrin Oral Suspension - PO 200 mg Q6H PRN Administration FEVER Insulin Aspart 0 units 09/09/15 12:00 11/04/15 12:30 Novolog Vial SQ Not Given Q6HPO [facility] Protocol Insulin Detemir 28 units 09/09/15 22:00 11/03/15 22:29 Levemir Vial SQ 28 units HS KWAKU Administration Lisinopril 40 mg 09/09/15 10:00 11/04/15 10:59 Prinivil - GT 40 mg DAILY KWAKU Administration Metoprolol Tartrate 5 mg 09/09/15 09:29 Lopressor Injection - IVPB Q6H PRN HYPERTENSION Metoprolol Tartrate 100 mg/ 125 mg 09/17/15 10:00 11/04/15 10:58 Metoprolol Tartrate 25 mg GT 125 mg BID KWAKU Administration Multivitamins 5 ml 09/09/15 10:00 11/04/15 10:59 Thera-Plus - GT 5 ml DAILY KWAKU Administration Ondansetron HCl 4 mg 09/09/15 09:29 Zofran Injection - IVPB Q6H PRN NAUSEA Pantoprazole Sodium 40 mg 09/09/15 10:00 11/04/15 10:59 Protonix Packets For Oral Suspension - GT 40 mg DAILY KWAKU Administration Assessment/Plan: Patient is a 75 year old male with PMHx of HTN, IDDM, inguinal hernia who presented to the ED with diverticular bleed s/p Righ hemicolectomy with 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 Leukocytosis, resolved Fever, resolved Lactic acidosis- resolved Diarrhea -WBC has trended to WNL, afebrile -blood cultures from 10/28 NGTD; urine culture from 10/28 negative -C.diff antigen and antibody from 10/29 negative, C.diff PCR from 10/30 negative - observe off antibiotics Respiratory failure secondary to anoxic brain injury -Cont trach collar -Albuterol neb PRN Hypertension -Continue Lisinopril/Metoprolol/Amlodipine Multiple pressure ulcers IDDM -Levemir 28 units HS -Novolog sliding scale coverage -fingersticks F/E/N: - Tube feeds: Vital 1.5 @60ml/hr Prophylaxis: - SCDs bilaterally - Lovenox CODE STATUS: DNR
[2015-11-04] MEDS: INSULIN DETEMIR 100 UNITS/ML MDV SQ SCH (23:53)
[2015-11-05] MEDS: PIPERACILLIN/TAZOB 3.375 GM 3.375 GM in DEXTROSE 5%-WATER - 50 ML IVPB SCH ×3 (02:14→17:26)
[2015-11-05] MEDS: INSULIN (NOVOLOG) ASPART 100 UNITS/ML 10ML VIAL SQ SCH ×3 (06:36→17:27)
[2015-11-05] MEDS: SODIUM CHLORIDE 1,000 ML IV SCH ×2 (10:58→14:15)
[2015-11-05] MEDS: ENOXAPARIN NA (PORCINE) 40 MG/0.4 ML DISP.SYRIN SQ SCH (11:08)
[2015-11-05] MEDS: METOPROLOL TARTRATE 100 MG, METOPROLOL TARTRATE 25 MG GT SCH ×2 (11:08→21:44)
[2015-11-05] MEDS: AMINO ACIDS/PROTEIN HYDROLYS SUGAR-FREE 30 ML PACKET PO SCH ×2 (11:08→17:27)
[2015-11-05] MEDS: PANTOPRAZOLE SOD 40 MG SUSPENSION PACKET GT SCH (11:08)
[2015-11-05] MEDS: LISINOPRIL 20 MG TABLET (FP) GT SCH (11:09)
[2015-11-05] MEDS: amLODIPine BESYLATE 10 MG TABLET (FP) GT SCH (11:09)
[2015-11-05] MEDS: MULTIVITAMINS THERAPEUTIC GT SCH (11:10)
--- NOTE | 2015-11-05 12:16 | PN ---
Progress Note (short form) - Note Progress Note: Hospitalist Progress Note SUBJECTIVE: Patient seen and examined at bedside. NAD noted. Awake. Spontaneous movement. OBJECTIVE: Last Vital Signs Temp Pulse Resp BP Pulse Ox 98.6 F 99 H 20 167/88 97 11/05/15 06:05 11/05/15 10:21 11/05/15 10:00 11/05/15 10:00 11/05/15 10:21 GENERAL: no acute distress. Awake. PULMONARY:Tach collar placed, rhonchi. CARDIOVASCULAR: nS1,S2, RRR, no RMG ABDOMINAL: soft, nontender, nondistended, normoactive bowel sounds. Peg tube CDI. EXTREMITIES: warm, well perfused, no edema. 2+ DP/PT bilaterally NEUROLOGICAL:spontaneous eye movement, non verbal. Unable to fully assess. CBCD WBC 9.4 K/mm3 (4.0-10.0) 11/03/15 11:05 RBC 3.24 M/mm3 (4.00-5.60) L 11/03/15 11:05 Hgb 9.2 GM/dL (11.7-16.9) L 11/03/15 11:05 Hct 28.0 % (35.4-49) L 11/03/15 11:05 MCV 86.5 fl (80-96) 11/03/15 11:05 MCHC 32.9 g/dl (32.0-35.9) 11/03/15 11:05 RDW 16.5 % (11.9-15.9) H 11/03/15 11:05 Plt Count 289 K/MM3 (134-434) 11/03/15 11:05 MPV 7.5 fl (7.5-11.1) 11/03/15 11:05 CMP Sodium 143 mmol/L (136-145) 11/03/15 11:05 Potassium 3.7 mmol/L (3.5-5.1) 11/03/15 11:05 Chloride 107 mmol/L (98-107) 11/03/15 11:05 Carbon Dioxide 27 mmol/L (21-32) 11/03/15 11:05 Anion Gap 9 (8-16) 11/03/15 11:05 BUN 12 mg/dL (7-18) 11/03/15 11:05 Creatinine 0.7 mg/dL (0.7-1.3) 11/03/15 11:05 Creat Clearance w eGFR > 60 (>60) 11/02/15 07:45 Calcium 9.5 mg/dL (8.5-10.1) 11/03/15 11:05 Total Bilirubin 0.2 mg/dL (0.2-1.0) D 11/02/15 07:45 AST 13 U/L (15-37) L 11/02/15 07:45 ALT 19 U/L (12-78) D 11/02/15 07:45 Alkaline Phosphatase 83 U/L (45-117) 11/02/15 07:45 Total Protein 7.0 g/dl (6.4-8.2) 11/02/15 07:45 Albumin 2.9 g/dl (3.4-5.0) L 11/02/15 07:45 Assessment/Plan: Patient is a 75 year old male with PMHx of HTN, IDDM, inguinal hernia who presented to the ED with diverticular bleed s/p Righ hemicolectomy with 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 Leukocytosis, resolved Fever, resolved Lactic acidosis- resolved Diarrhea -WBC has trended to WNL, afebrile -blood cultures from 10/28 NGTD; urine culture from 10/28 negative -C.diff antigen and antibody from 10/29 negative, C.diff PCR from 10/30 negative - abx per ID Respiratory failure secondary to anoxic brain injury -Cont trach collar -Albuterol neb PRN Hypertension -Continue Lisinopril/Metoprolol/Amlodipine Multiple pressure ulcers IDDM -Levemir 28 units HS -Novolog sliding scale coverage -fingersticks F/E/N: - Tube feeds: Vital 1.5 @60ml/hr Prophylaxis: - SCDs bilaterally - Lovenox CODE STATUS: DNR
[2015-11-05] MEDS: ALBUTEROL SO4 0.083% IH SOL 2.5 MG/3 ML VIAL.NEB. NEB PRN (12:28)
[2015-11-05] MEDS: COLLAGENASE CLOSTRIDIUM HIST. 30 GRAMS TUBE TP SCH ×2 (13:00→21:44)
[2015-11-05] MEDS: INSULIN DETEMIR 100 UNITS/ML MDV SQ SCH (21:44)
[2015-11-06] MEDS: INSULIN (NOVOLOG) ASPART 100 UNITS/ML 10ML VIAL SQ SCH ×5 (00:22→23:18)
[2015-11-06] MEDS: SODIUM CHLORIDE 1,000 ML IV SCH ×3 (00:30→22:50)
[2015-11-06] MEDS: PIPERACILLIN/TAZOB 3.375 GM 3.375 GM in DEXTROSE 5%-WATER - 50 ML IVPB SCH ×3 (02:29→17:35)
[2015-11-06] MEDS: AMINO ACIDS/PROTEIN HYDROLYS SUGAR-FREE 30 ML PACKET PO SCH ×2 (08:16→17:35)
[2015-11-06] MEDS: METOPROLOL TARTRATE 100 MG, METOPROLOL TARTRATE 25 MG GT SCH ×2 (10:09→22:51)
[2015-11-06] MEDS: ENOXAPARIN NA (PORCINE) 40 MG/0.4 ML DISP.SYRIN SQ SCH (10:10)
[2015-11-06] MEDS: PANTOPRAZOLE SOD 40 MG SUSPENSION PACKET GT SCH (10:11)
[2015-11-06] MEDS: amLODIPine BESYLATE 10 MG TABLET (FP) GT SCH (10:11)
[2015-11-06] MEDS: LISINOPRIL 20 MG TABLET (FP) GT SCH (10:11)
[2015-11-06] MEDS: MULTIVITAMINS THERAPEUTIC GT SCH (10:12)
[2015-11-06] MEDS: COLLAGENASE CLOSTRIDIUM HIST. 30 GRAMS TUBE TP SCH ×2 (13:28→22:51)
--- NOTE | 2015-11-06 17:23 | PN ---
Progress Note (short form) - Note Progress Note: Subjective: Pt seen and examined at bedside. Rectal tube with watery bowel. Saline flush turned off. Sacral wound cleaned and re dressed. Now with spontaneous movement Objective: Last Vital Signs Temp Pulse Resp BP Pulse Ox 98.6 F 85 18 144/86 97 11/06/15 14:00 11/06/15 14:00 11/06/15 14:00 11/06/15 14:00 11/06/15 10:25 PE: Neuro: spontaneous eye movement, non verbal Pulm: bilateral rhonchi, + secretions, trach collar CV: s1 s2 rrr no mrg Abd: s, nt nd +bs Skin: sacral ulcer red, no draining Ext: warm, no edema Current Medications Generic Name Dose Route Start Last Admin Trade Name Freq PRN Reason Stop Dose Admin Acetaminophen 650 mg 09/09/15 09:29 10/28/15 17:53 Tylenol Oral Solution - GT 650 mg Q6H PRN Administration FEVER Amino Acids 30 ml 09/15/15 17:30 11/06/15 08:16 Prostat Sugar-Free Packet - PO 30 ml BID@0800,1730 KWAKU Administration Amlodipine Besylate 10 mg 09/09/15 10:00 11/06/15 10:11 Norvasc - GT 10 mg DAILY KWAKU Administration Collagenase 1 applic 10/12/15 22:00 11/06/15 13:28 Santyl - TP 1 applic BID KWAKU Administration Enoxaparin Sodium 40 mg 10/31/15 17:15 11/06/15 10:10 Lovenox - SQ 40 mg DAILY KWAKU Administration Sodium Chloride 1,000 mls @ 100 mls/hr 10/28/15 14:15 11/06/15 11:02 Normal Saline - IV 100 mls/hr ASDIR KWAKU Administration Piperacillin Sod/Tazobactam 50 mls @ 100 mls/hr 11/04/15 18:30 11/06/15 10:14 Sod 3.375 gm/ Dextrose IVPB 100 mls/hr Q8H-IV KWAKU Administration Ibuprofen 200 mg 09/09/15 09:29 10/28/15 13:23 Motrin Oral Suspension - PO 200 mg Q6H PRN Administration FEVER Insulin Aspart 0 units 09/09/15 12:00 11/06/15 13:27 Novolog Vial SQ 2 units Q6HPO KWAKU Administration Protocol Insulin Detemir 28 units 09/09/15 22:00 11/05/15 21:44 Levemir Vial SQ 28 units HS KWAKU Administration Lisinopril 40 mg 09/09/15 10:00 11/06/15 10:11 Prinivil - GT 40 mg DAILY KWAKU Administration Metoprolol Tartrate 5 mg 09/09/15 09:29 Lopressor Injection - IVPB Q6H PRN HYPERTENSION Metoprolol Tartrate 100 mg/ 125 mg 09/17/15 10:00 11/06/15 10:09 Metoprolol Tartrate 25 mg GT 125 mg BID KWAKU Administration Multivitamins 5 ml 09/09/15 10:00 11/06/15 10:12 Thera-Plus - GT 5 ml DAILY KWAKU Administration Ondansetron HCl 4 mg 09/09/15 09:29 Zofran Injection - IVPB Q6H PRN NAUSEA Pantoprazole Sodium 40 mg 09/09/15 10:00 11/06/15 10:11 Protonix Packets For Oral Suspension - GT 40 mg DAILY KWAKU Administration Assessment: 75 year old male with PMHx of HTN, IDDM, inguinal hernia presented to the ED with diverticular bleed s/p Right hemicolectomy. 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 Plan: 1. Diarrhea - Negative for C diff - Cont saline flush turned off, will monitor for formed bowel, if improves can start probiotic - Observe off antibiotics - Has been afebrile for 24 hours - ID following, rec appreciated 2. Respiratory failure secondary to anoxic brain injury - Cont trach collar - Albuterol neb PRN 3. Hypertension - Cont Lisinopril/Metoprolol/Amlodipine 4. Multiple pressure ulcers - Cont daily dressing changes - Turn Q2 hours 5. IDDM - Levemir 28 units HS - ISS, BGM ACHS 6. F/E/N: - Tube feeds: Vital 1.5 @60ml/hr Prophylaxis: - SCDs bilaterally - Lovenox CODE STATUS: DNR CODE STATUS: DNR DAILY KWAKU Administration Ondansetron HCl 4 mg 09/09/15 09:29 Zofran Injection - IVPB Q6H PRN NAUSEA Pantoprazole Sodium 40 mg 09/09/15 10:00 11/06/15 10:11 Protonix Packets For Oral Suspension - GT 40 mg DAILY KWAKU Administration
[2015-11-06] MEDS: INSULIN DETEMIR 100 UNITS/ML MDV SQ SCH (22:51)
[2015-11-07] MEDS: PIPERACILLIN/TAZOB 3.375 GM 3.375 GM in DEXTROSE 5%-WATER - 50 ML IVPB SCH ×3 (02:37→17:22)
[2015-11-07] MEDS: INSULIN (NOVOLOG) ASPART 100 UNITS/ML 10ML VIAL SQ SCH ×3 (06:52→17:28)
[2015-11-07] MEDS: AMINO ACIDS/PROTEIN HYDROLYS SUGAR-FREE 30 ML PACKET PO SCH ×2 (07:56→17:22)
[2015-11-07] MEDS: SODIUM CHLORIDE 1,000 ML IV SCH ×2 (09:48→14:27)
[2015-11-07] MEDS: METOPROLOL TARTRATE 100 MG, METOPROLOL TARTRATE 25 MG GT SCH ×2 (09:49→22:21)
[2015-11-07] MEDS: ENOXAPARIN NA (PORCINE) 40 MG/0.4 ML DISP.SYRIN SQ SCH (09:49)
[2015-11-07] MEDS: amLODIPine BESYLATE 10 MG TABLET (FP) GT SCH (09:50)
[2015-11-07] MEDS: LISINOPRIL 20 MG TABLET (FP) GT SCH (09:51)
[2015-11-07] MEDS: COLLAGENASE CLOSTRIDIUM HIST. 30 GRAMS TUBE TP SCH ×2 (09:51→22:22)
[2015-11-07] MEDS: PANTOPRAZOLE SOD 40 MG SUSPENSION PACKET GT SCH (09:51)
[2015-11-07] MEDS: MULTIVITAMINS THERAPEUTIC GT SCH (09:51)
--- NOTE | 2015-11-07 10:38 | PN ---
Progress Note (short form) - Note Progress Note: Subjective: Pt seen and examined at bedside. Bowel movements show some formation , however still watery. Pt resting comfortably. Objective: Last Vital Signs Temp Pulse Resp BP Pulse Ox 98.8 F 96 H 20 165/99 96 11/07/15 10:00 11/07/15 10:00 11/07/15 10:00 11/07/15 10:00 11/06/15 21:00 PE: Neuro: spontaneous eye movement, non verbal Pulm: bilateral rhonchi, trach collar CV: s1 s2 rrr no mrg Abd: s, nt nd +bs Skin: sacral ulcer dressed Ext: warm, no edema Current Medications Generic Name Dose Route Start Last Admin Trade Name Freq PRN Reason Stop Dose Admin Acetaminophen 650 mg 09/09/15 09:29 10/28/15 17:53 Tylenol Oral Solution - GT 650 mg Q6H PRN Administration FEVER Amino Acids 30 ml 09/15/15 17:30 11/07/15 07:56 Prostat Sugar-Free Packet - PO 30 ml BID@0800,1730 KWAKU Administration Amlodipine Besylate 10 mg 09/09/15 10:00 11/07/15 09:50 Norvasc - GT 10 mg DAILY KWAKU Administration Collagenase 1 applic 10/12/15 22:00 11/07/15 09:51 Santyl - TP 1 applic BID KWAKU Administration Enoxaparin Sodium 40 mg 10/31/15 17:15 11/07/15 09:49 Lovenox - SQ 40 mg DAILY KWAKU Administration Sodium Chloride 1,000 mls @ 100 mls/hr 10/28/15 14:15 11/07/15 09:48 Normal Saline - IV 100 mls/hr ASDIR KWAKU Administration Piperacillin Sod/Tazobactam 50 mls @ 100 mls/hr 11/04/15 18:30 11/07/15 09:51 Sod 3.375 gm/ Dextrose IVPB 100 mls/hr Q8H-IV KWAKU Administration Ibuprofen 200 mg 09/09/15 09:29 10/28/15 13:23 Motrin Oral Suspension - PO 200 mg Q6H PRN Administration FEVER Insulin Aspart 0 units 09/09/15 12:00 11/07/15 06:52 Novolog Vial SQ 2 units Q6HPO KWAKU Administration Protocol Insulin Detemir 28 units 09/09/15 22:00 11/06/15 22:51 Levemir Vial SQ 28 units HS KWAKU Administration Lisinopril 40 mg 09/09/15 10:00 11/07/15 09:51 Prinivil - GT 40 mg DAILY KWAKU Administration Metoprolol Tartrate 5 mg 09/09/15 09:29 Lopressor Injection - IVPB Q6H PRN HYPERTENSION Metoprolol Tartrate 100 mg/ 125 mg 09/17/15 10:00 11/07/15 09:49 Metoprolol Tartrate 25 mg GT 125 mg BID KWAKU Administration Multivitamins 5 ml 09/09/15 10:00 11/07/15 09:51 Thera-Plus - GT 5 ml DAILY KWAKU Administration Ondansetron HCl 4 mg 09/09/15 09:29 Zofran Injection - IVPB Q6H PRN NAUSEA Pantoprazole Sodium 40 mg 09/09/15 10:00 11/07/15 09:51 Protonix Packets For Oral Suspension - GT 40 mg DAILY KWAKU Administration Assessment: 75 year old male with PMHx of HTN, IDDM, inguinal hernia presented to the ED with diverticular bleed s/p Right hemicolectomy. 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 Plan: 1. Diarrhea - Negative for C diff, PCR negative - Cont to observe off antibiotics, afebrile x48hr - Follow cbc in am - Consider probiotic - ID following 2. Respiratory failure secondary to anoxic brain injury - Cont trach collar - Albuterol neb PRN 3. Hypertension - Cont Lisinopril/Metoprolol/Amlodipine 4. Multiple pressure ulcers - Cont daily dressing changes - Turn Q2 hours 5. IDDM - Levemir 28 units HS - ISS, BGM ACHS 6. F/E/N: - Tube feeds: Vital 1.5 @60ml/hr - RD aware of diarrhea Prophylaxis: - SCDs bilaterally - Lovenox CODE STATUS: DNR
[2015-11-07] MEDS: INSULIN DETEMIR 100 UNITS/ML MDV SQ SCH (22:21)
[2015-11-08] MEDS: INSULIN (NOVOLOG) ASPART 100 UNITS/ML 10ML VIAL SQ SCH ×5 (00:02→23:29)
[2015-11-08] MEDS: PIPERACILLIN/TAZOB 3.375 GM 3.375 GM in DEXTROSE 5%-WATER - 50 ML IVPB SCH ×3 (01:59→17:45)
[2015-11-08] MEDS: SODIUM CHLORIDE 1,000 ML IV SCH ×3 (01:59→19:05)
[2015-11-08] MEDS: amLODIPine BESYLATE 10 MG TABLET (FP) GT SCH (09:29)
[2015-11-08] MEDS: METOPROLOL TARTRATE 100 MG, METOPROLOL TARTRATE 25 MG GT SCH ×2 (09:29→21:23)
[2015-11-08] MEDS: PANTOPRAZOLE SOD 40 MG SUSPENSION PACKET GT SCH (09:29)
[2015-11-08] MEDS: AMINO ACIDS/PROTEIN HYDROLYS SUGAR-FREE 30 ML PACKET PO SCH ×2 (09:29→17:45)
[2015-11-08] MEDS: LISINOPRIL 20 MG TABLET (FP) GT SCH (09:30)
[2015-11-08] MEDS: MULTIVITAMINS THERAPEUTIC GT SCH (09:30)
[2015-11-08] MEDS: COLLAGENASE CLOSTRIDIUM HIST. 30 GRAMS TUBE TP SCH ×2 (13:27→21:28)
--- NOTE | 2015-11-08 18:20 | PN ---
Progress Note (short form) - Note Progress Note: Subjective: Pt seen and examined at bedside. Bowel formation improving, rectal tube reported leaks, RN aware to change. Objective: Last Vital Signs Temp Pulse Resp BP Pulse Ox 98.8 F 96 H 20 165/99 96 11/07/15 10:00 11/07/15 10:00 11/07/15 10:00 11/07/15 10:00 11/06/15 21:00 PE: Neuro: spontaneous eye movement, non verbal Pulm: bilateral rhonchi, trach collar CV: s1 s2 rrr no mrg Abd: s, nt nd +bs Skin: sacral ulcer dressed Ext: warm, no edema, bi lateral arm movement, and right lower extremity Current Medications Generic Name Dose Route Start Last Admin Trade Name Freq PRN Reason Stop Dose Admin Acetaminophen 650 mg 09/09/15 09:29 10/28/15 17:53 Tylenol Oral Solution - GT 650 mg Q6H PRN Administration FEVER Amino Acids 30 ml 09/15/15 17:30 11/08/15 17:45 Prostat Sugar-Free Packet - PO 30 ml BID@0800,1730 KWAKU Administration Amlodipine Besylate 10 mg 09/09/15 10:00 11/08/15 09:29 Norvasc - GT 10 mg DAILY KWAKU Administration Collagenase 1 applic 10/12/15 22:00 11/08/15 13:27 Santyl - TP 1 applic BID KWAKU Administration Sodium Chloride 1,000 mls @ 100 mls/hr 10/28/15 14:15 11/08/15 14:23 Normal Saline - IV 100 mls/hr ASDIR KWAKU Administration Piperacillin Sod/Tazobactam 50 mls @ 100 mls/hr 11/04/15 18:30 11/08/15 17:45 Sod 3.375 gm/ Dextrose IVPB 100 mls/hr Q8H-IV KWAKU Administration Ibuprofen 200 mg 09/09/15 09:29 10/28/15 13:23 Motrin Oral Suspension - PO 200 mg Q6H PRN Administration FEVER Insulin Aspart 0 units 09/09/15 12:00 11/08/15 17:37 Novolog Vial SQ Not Given Q6HPO [facility] Protocol Insulin Detemir 28 units 09/09/15 22:00 11/07/15 22:21 Levemir Vial SQ 28 units HS KWAKU Administration Lisinopril 40 mg 09/09/15 10:00 11/08/15 09:30 Prinivil - GT 40 mg DAILY KWAKU Administration Metoprolol Tartrate 5 mg 09/09/15 09:29 Lopressor Injection - IVPB Q6H PRN HYPERTENSION Metoprolol Tartrate 100 mg/ 125 mg 09/17/15 10:00 11/08/15 09:29 Metoprolol Tartrate 25 mg GT 125 mg BID KWAKU Administration Multivitamins 5 ml 09/09/15 10:00 11/08/15 09:30 Thera-Plus - GT 5 ml DAILY KWAKU Administration Ondansetron HCl 4 mg 09/09/15 09:29 Zofran Injection - IVPB Q6H PRN NAUSEA Pantoprazole Sodium 40 mg 09/09/15 10:00 11/08/15 09:29 Protonix Packets For Oral Suspension - GT 40 mg DAILY KWAKU Administration Assessment: 75 year old male with PMHx of HTN, IDDM, inguinal hernia presented to the ED with diverticular bleed s/p Right hemicolectomy. 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 Plan: 1. Diarrhea - Negative for C diff, PCR negative - Stool formation improving - Start Bacid - ID following 2. Respiratory failure secondary to anoxic brain injury - Cont trach collar - Albuterol neb PRN 3. Hypertension - Cont Lisinopril/Metoprolol/Amlodipine 4. Multiple pressure ulcers - Cont daily dressing changes - Turn Q2 hours 5. IDDM - Levemir 28 units HS - ISS, BGM ACHS 6. F/E/N: - Tube feeds: Vital 1.5 @60ml/hr Prophylaxis: - SCDs bilaterally - Lovenox CODE STATUS: DNR - Lovenox CODE STATUS: DNR
[2015-11-08] MEDS: LACTOBACILLUS ACIDOPHILUS 1 EACH TAB (FP) PO SCH (21:23)
[2015-11-08] MEDS: INSULIN DETEMIR 100 UNITS/ML MDV SQ SCH (21:27)
[2015-11-09] MEDS: SODIUM CHLORIDE 1,000 ML IV SCH ×2 (02:00→15:14)
[2015-11-09] MEDS: PIPERACILLIN/TAZOB 3.375 GM 3.375 GM in DEXTROSE 5%-WATER - 50 ML IVPB SCH ×3 (02:19→18:16)
[2015-11-09] MEDS: INSULIN (NOVOLOG) ASPART 100 UNITS/ML 10ML VIAL SQ SCH ×3 (05:25→18:16)
[2015-11-09] MEDS: AMINO ACIDS/PROTEIN HYDROLYS SUGAR-FREE 30 ML PACKET PO SCH ×2 (09:30→18:16)
[2015-11-09] MEDS: amLODIPine BESYLATE 10 MG TABLET (FP) GT SCH (10:59)
[2015-11-09] MEDS: PANTOPRAZOLE SOD 40 MG SUSPENSION PACKET GT SCH (10:59)
[2015-11-09] MEDS: LISINOPRIL 20 MG TABLET (FP) GT SCH (11:00)
[2015-11-09] MEDS: METOPROLOL TARTRATE 100 MG, METOPROLOL TARTRATE 25 MG GT SCH ×2 (11:00→21:26)
[2015-11-09] MEDS: MULTIVITAMINS THERAPEUTIC GT SCH (11:00)
[2015-11-09] MEDS: LACTOBACILLUS ACIDOPHILUS 1 EACH TAB (FP) PO SCH (11:01)
[2015-11-09] MEDS: COLLAGENASE CLOSTRIDIUM HIST. 30 GRAMS TUBE TP SCH ×2 (12:14→21:26)
--- NOTE | 2015-11-09 16:21 | PN ---
Progress Note (short form) - Note Progress Note: Subjective: Pt seen and examined at bedside he is awake, appears comfortable. Objective: Last Vital Signs Temp Pulse Resp BP Pulse Ox 98.4 F 92 H 22 157/98 96 11/09/15 14:06 11/09/15 14:06 11/09/15 14:06 11/09/15 09:00 11/09/15 09:00 PE: Neuro: spontaneous eye movement, non verbal Pulm: bilateral rhonchi, trach collar CV: s1 s2 rrr no mrg Abd: s, nt nd +bs Skin: sacral ulcer dressed Ext: warm, no edema, bi lateral arm movement, and right lower extremity Current Medications Generic Name Dose Route Start Last Admin Trade Name Freq PRN Reason Stop Dose Admin Acetaminophen 650 mg 09/09/15 09:29 10/28/15 17:53 Tylenol Oral Solution - GT 650 mg Q6H PRN Administration FEVER Amino Acids 30 ml 09/15/15 17:30 11/08/15 17:45 Prostat Sugar-Free Packet - PO 30 ml BID@0800,1730 KWAKU Administration Amlodipine Besylate 10 mg 09/09/15 10:00 11/08/15 09:29 Norvasc - GT 10 mg DAILY KWAKU Administration Collagenase 1 applic 10/12/15 22:00 11/08/15 13:27 Santyl - TP 1 applic BID KWAKU Administration Sodium Chloride 1,000 mls @ 100 mls/hr 10/28/15 14:15 11/08/15 14:23 Normal Saline - IV 100 mls/hr ASDIR KWAKU Administration Piperacillin Sod/Tazobactam 50 mls @ 100 mls/hr 11/04/15 18:30 11/08/15 17:45 Sod 3.375 gm/ Dextrose IVPB 100 mls/hr Q8H-IV KWAKU Administration Ibuprofen 200 mg 09/09/15 09:29 10/28/15 13:23 Motrin Oral Suspension - PO 200 mg Q6H PRN Administration FEVER Insulin Aspart 0 units 09/09/15 12:00 11/08/15 17:37 Novolog Vial SQ Not Given Q6HPO KWAKU Protocol Insulin Detemir 28 units 09/09/15 22:00 11/07/15 22:21 Levemir Vial SQ 28 units HS KWAKU Administration Lisinopril 40 mg 09/09/15 10:00 11/08/15 09:30 Prinivil - GT 40 mg DAILY KWAKU Administration Metoprolol Tartrate 5 mg 09/09/15 09:29 Lopressor Injection - IVPB Q6H PRN HYPERTENSION Metoprolol Tartrate 100 mg/ 125 mg 09/17/15 10:00 11/08/15 09:29 Metoprolol Tartrate 25 mg GT 125 mg BID KWAKU Administration Multivitamins 5 ml 09/09/15 10:00 11/08/15 09:30 Thera-Plus - GT 5 ml DAILY KWAKU Administration Ondansetron HCl 4 mg 09/09/15 09:29 Zofran Injection - IVPB Q6H PRN NAUSEA Pantoprazole Sodium 40 mg 09/09/15 10:00 11/08/15 09:29 Protonix Packets For Oral Suspension - GT 40 mg DAILY KWAKU Administration Assessment: 75 year old male with PMHx of HTN, IDDM, inguinal hernia presented to the ED with diverticular bleed s/p Right hemicolectomy. 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 Plan: 1. Diarrhea - Improved - Stool formation improved since continuous saline flush discontinued - Cont Bacid - ID following 2. Respiratory failure secondary to anoxic brain injury - Cont trach collar - Albuterol neb PRN 3. Hypertension - Cont Lisinopril/Metoprolol/Amlodipine 4. Multiple pressure ulcers - Cont daily dressing changes - Turn Q2 hours 5. IDDM - Levemir 28 units HS - ISS, BGM ACHS 6. F/E/N: - Tube feeds: Vital 1.5 @60ml/hr Prophylaxis: - SCDs bilaterally - Lovenox CODE STATUS: DNR
[2015-11-09] MEDS: INSULIN DETEMIR 100 UNITS/ML MDV SQ SCH (21:26)
[2015-11-10] MEDS: INSULIN (NOVOLOG) ASPART 100 UNITS/ML 10ML VIAL SQ SCH ×5 (00:35→23:17)
[2015-11-10] MEDS: PIPERACILLIN/TAZOB 3.375 GM 3.375 GM in DEXTROSE 5%-WATER - 50 ML IVPB SCH ×3 (02:47→18:03)
[2015-11-10] MEDS: SODIUM CHLORIDE 1,000 ML IV SCH ×2 (02:48→13:00)
[2015-11-10] MEDS: ALBUTEROL SO4 0.083% IH SOL 2.5 MG/3 ML VIAL.NEB. NEB SCH ×4 (06:00→19:10)
[2015-11-10] MEDS: AMINO ACIDS/PROTEIN HYDROLYS SUGAR-FREE 30 ML PACKET PO SCH ×2 (10:58→17:55)
[2015-11-10] MEDS: PANTOPRAZOLE SOD 40 MG SUSPENSION PACKET GT SCH (10:59)
[2015-11-10] MEDS: METOPROLOL TARTRATE 100 MG, METOPROLOL TARTRATE 25 MG GT SCH ×2 (10:59→22:26)
[2015-11-10] MEDS: LISINOPRIL 20 MG TABLET (FP) GT SCH (11:00)
[2015-11-10] MEDS: MULTIVITAMINS THERAPEUTIC GT SCH (11:00)
[2015-11-10] MEDS: LACTOBACILLUS ACIDOPHILUS 1 EACH TAB (FP) PO SCH (11:00)
[2015-11-10] MEDS: amLODIPine BESYLATE 10 MG TABLET (FP) GT SCH (11:00)
[2015-11-10] MEDS: COLLAGENASE CLOSTRIDIUM HIST. 30 GRAMS TUBE TP SCH (15:45)
--- NOTE | 2015-11-10 22:35 | PN ---
Progress Note (short form) - Note Progress Note: SUBJECTIVE: Patient seen and examined at bedside. Eyes open, non-purposeful movement. Does not track to voice. Reflex hand grasping. OBJECTIVE: Vitals Vital Signs Period Temp Pulse Resp BP Sys/Santiago Pulse Ox Last 24 Hr 97.2 F-98.6 F 84-93 16-24 149-164/86-96 97-98 GENERAL: The patient has periods of somnolence, periods of wakefulness. No signs of pain. HEAD: Normal with no signs of trauma. EYES: Pupils equal, round and reactive to light, sclera anicteric, conjunctiva clear. ENT: Ears normal, nares patent, oropharynx clear without exudates. Moist mucous membranes. Trach collar. NECK: Normal range of motion, supple without lymphadenopathy, JVD, or masses. LUNGS: Breath sounds equal, clear to auscultation bilaterally. No wheezes, and no crackles. HEART: Regular rate and rhythm, normal S1 and S2 without murmur, rub or gallop. ABDOMEN: Soft, nontender, normoactive bowel sounds. No guarding, no rebound. No masses. UPPER EXTREMITIES: 2+ pulses, warm, well-perfused, no edema. LOWER EXTREMITIES: 2+ pulses, warm, well-perfused, no edema. NEUROLOGICAL: Unable to assess. SKIN: #1: Right buttock Stage III pressure ulcer healing 3.0cmL x 2.0cm W x 0.2cm D fibrous rim circumscribes the wound, granulating tissue at base #2: Left buttock State III pressure ulcer healing 4.0cmL x 3.0cmW x 0.2cm D fibrous rim circumscribes the wound, granulating tissue at base CBCD WBC 9.4 K/mm3 (4.0-10.0) 11/03/15 11:05 RBC 3.24 M/mm3 (4.00-5.60) L 11/03/15 11:05 Hgb 9.2 GM/dL (11.7-16.9) L 11/03/15 11:05 Hct 28.0 % (35.4-49) L 11/03/15 11:05 MCV 86.5 fl (80-96) 11/03/15 11:05 MCHC 32.9 g/dl (32.0-35.9) 11/03/15 11:05 RDW 16.5 % (11.9-15.9) H 11/03/15 11:05 Plt Count 289 K/MM3 (134-434) 11/03/15 11:05 MPV 7.5 fl (7.5-11.1) 11/03/15 11:05 CMP Sodium 143 mmol/L (136-145) 11/03/15 11:05 Potassium 3.7 mmol/L (3.5-5.1) 11/03/15 11:05 Chloride 107 mmol/L (98-107) 11/03/15 11:05 Carbon Dioxide 27 mmol/L (21-32) 11/03/15 11:05 Anion Gap 9 (8-16) 11/03/15 11:05 BUN 12 mg/dL (7-18) 11/03/15 11:05 Creatinine 0.7 mg/dL (0.7-1.3) 11/03/15 11:05 Creat Clearance w eGFR > 60 (>60) 11/02/15 07:45 Calcium 9.5 mg/dL (8.5-10.1) 11/03/15 11:05 Total Bilirubin 0.2 mg/dL (0.2-1.0) D 11/02/15 07:45 AST 13 U/L (15-37) L 11/02/15 07:45 ALT 19 U/L (12-78) D 11/02/15 07:45 Alkaline Phosphatase 83 U/L (45-117) 11/02/15 07:45 Total Protein 7.0 g/dl (6.4-8.2) 11/02/15 07:45 Albumin 2.9 g/dl (3.4-5.0) L 11/02/15 07:45 Current Medications Generic Name Dose Route Start Last Admin Trade Name Freq PRN Reason Stop Dose Admin Acetaminophen 650 mg 09/09/15 09:29 10/28/15 17:53 Tylenol Oral Solution - GT 650 mg Q6H PRN Administration FEVER Albuterol Sulfate 1 amp 11/09/15 18:00 11/10/15 19:10 Ventolin 0.083% Nebulizer Soln - NEB 1 amp QIDR KWAKU Administration Amino Acids 30 ml 09/15/15 17:30 11/10/15 17:55 Prostat Sugar-Free Packet - PO 30 ml BID@0800,1730 KWAKU Administration Amlodipine Besylate 10 mg 09/09/15 10:00 11/10/15 11:00 Norvasc - GT 10 mg DAILY KWAKU Administration Sodium Chloride 1,000 mls @ 100 mls/hr 10/28/15 14:15 11/10/15 13:00 Normal Saline - IV 100 mls/hr ASDIR KWAKU Administration Piperacillin Sod/Tazobactam 50 mls @ 100 mls/hr 11/04/15 18:30 11/10/15 18:03 Sod 3.375 gm/ Dextrose IVPB 100 mls/hr Q8H-IV KWAKU Administration Ibuprofen 200 mg 09/09/15 09:29 10/28/15 13:23 Motrin Oral Suspension - PO 200 mg Q6H PRN Administration FEVER Insulin Aspart 0 units 09/09/15 12:00 11/10/15 17:55 Novolog Vial SQ 2 units Q6HPO KWAKU Administration Protocol Insulin Detemir 28 units 09/09/15 22:00 11/09/15 21:26 Levemir Vial SQ 28 units HS KWAKU Administration Lactobacillus Acidophilus 1 tab 11/08/15 18:30 11/10/15 11:00 Bacid - PO 1 tab DAILY KWAKU Administration Lisinopril 40 mg 09/09/15 10:00 11/10/15 11:00 Prinivil - GT 40 mg DAILY KWAKU Administration Metoprolol Tartrate 5 mg 09/09/15 09:29 Lopressor Injection - IVPB Q6H PRN HYPERTENSION Metoprolol Tartrate 100 mg/ 125 mg 09/17/15 10:00 11/10/15 22:26 Metoprolol Tartrate 25 mg GT 125 mg BID KWAKU Administration Multivitamins 5 ml 09/09/15 10:00 11/10/15 11:00 Thera-Plus - GT 5 ml DAILY KWAKU Administration Ondansetron HCl 4 mg 09/09/15 09:29 Zofran Injection - IVPB Q6H PRN NAUSEA Pantoprazole Sodium 40 mg 09/09/15 10:00 11/10/15 10:59 Protonix Packets For Oral Suspension - GT 40 mg DAILY KWAKU Administration Assessment & Plan: 75 year old male with PMHx of HTN, IDDM, inguinal hernia who presented to the ED with diverticular bleed s/p right hemicolectomy with 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 Leukocytosis, resolved Fever, resolved Diarrhea, improved --WBC WNL, afebrile --C.diff antigen and antibody from 10/29 negative, C.diff PCR from 10/30 negative --all antibiotics off Respiratory failure secondary to anoxic brain injury --Cont trach collar --Albuterol neb PRN Hypertension Lisinopril/Metoprolol/Amlodipine Multiple pressure ulcers, improving --d/c collagenase --Allevyn sacral ulcer dressing only IDDM --Levemir 28 units HS --Novolog sliding scale coverage --fingersticks 5. F/E/N: - Tube feeds: Vital 1.5 @60ml/hr 6. Prophylaxis: - SCDs bilaterally - Lovenox CODE STATUS: DNR
[2015-11-10] MEDS: INSULIN DETEMIR 100 UNITS/ML MDV SQ SCH (23:17)
[2015-11-11] MEDS: SODIUM CHLORIDE 1,000 ML IV SCH ×4 (02:40→22:35)
[2015-11-11] MEDS: PIPERACILLIN/TAZOB 3.375 GM 3.375 GM in DEXTROSE 5%-WATER - 50 ML IVPB SCH ×3 (02:40→17:37)
[2015-11-11] MEDS: ALBUTEROL SO4 0.083% IH SOL 2.5 MG/3 ML VIAL.NEB. NEB SCH ×4 (06:00→18:27)
[2015-11-11] MEDS: INSULIN (NOVOLOG) ASPART 100 UNITS/ML 10ML VIAL SQ SCH ×4 (07:00→23:17)
[2015-11-11] MEDS: LISINOPRIL 20 MG TABLET (FP) GT SCH (10:06)
[2015-11-11] MEDS: METOPROLOL TARTRATE 100 MG, METOPROLOL TARTRATE 25 MG GT SCH ×2 (10:07→22:36)
[2015-11-11] MEDS: LACTOBACILLUS ACIDOPHILUS 1 EACH TAB (FP) PO SCH (10:07)
[2015-11-11] MEDS: AMINO ACIDS/PROTEIN HYDROLYS SUGAR-FREE 30 ML PACKET PO SCH ×2 (10:07→17:44)
[2015-11-11] MEDS: PANTOPRAZOLE SOD 40 MG SUSPENSION PACKET GT SCH (10:08)
[2015-11-11] MEDS: MULTIVITAMINS THERAPEUTIC GT SCH (10:08)
[2015-11-11] MEDS: amLODIPine BESYLATE 10 MG TABLET (FP) GT SCH (10:08)
--- NOTE | 2015-11-11 22:44 | PN ---
Progress Note (short form) - Note Progress Note: SUBJECTIVE: Patient seen and examined at bedside. Eyes open, non-purposeful movement. Does not track to voice. Spasticity noted in right arm today. OBJECTIVE: Vitals Vital Signs Period Temp Pulse Resp BP Sys/Santiago Pulse Ox Last 24 Hr 98.0 F-98.9 F 72-98 14-20 116-172/67-100 96-97 GENERAL: The patient has periods of somnolence, periods of wakefulness. Wakeful today. No signs of pain. HEAD: Normal with no signs of trauma. EYES: Pupils equal, round and reactive to light, sclera anicteric, conjunctiva clear. ENT: Ears normal, nares patent, oropharynx clear without exudates. Moist mucous membranes. Trach collar, thin white secretions. NECK: Normal range of motion, supple without lymphadenopathy, JVD, or masses. LUNGS: Breath sounds equal, clear to auscultation bilaterally. No wheezes, and no crackles. HEART: Regular rate and rhythm, normal S1 and S2 without murmur, rub or gallop. ABDOMEN: Soft, nontender, normoactive bowel sounds. No guarding, no rebound. No masses. UPPER EXTREMITIES: 2+ pulses, warm, well-perfused, no edema. LOWER EXTREMITIES: 2+ pulses, warm, well-perfused, no edema. NEUROLOGICAL: Unable to assess. SKIN: #1: Right buttock Stage III pressure ulcer healing 3.0cmL x 2.0cm W x 0.2cm D fibrous rim circumscribes the wound, granulating tissue at base #2: Left buttock State III pressure ulcer healing 4.0cmL x 3.0cmW x 0.2cm D fibrous rim circumscribes the wound, granulating tissue at base CBCD WBC 9.4 K/mm3 (4.0-10.0) 11/03/15 11:05 RBC 3.24 M/mm3 (4.00-5.60) L 11/03/15 11:05 Hgb 9.2 GM/dL (11.7-16.9) L 11/03/15 11:05 Hct 28.0 % (35.4-49) L 11/03/15 11:05 MCV 86.5 fl (80-96) 11/03/15 11:05 MCHC 32.9 g/dl (32.0-35.9) 11/03/15 11:05 RDW 16.5 % (11.9-15.9) H 11/03/15 11:05 Plt Count 289 K/MM3 (134-434) 11/03/15 11:05 MPV 7.5 fl (7.5-11.1) 11/03/15 11:05 CMP Sodium 143 mmol/L (136-145) 11/03/15 11:05 Potassium 3.7 mmol/L (3.5-5.1) 11/03/15 11:05 Chloride 107 mmol/L (98-107) 11/03/15 11:05 Carbon Dioxide 27 mmol/L (21-32) 11/03/15 11:05 Anion Gap 9 (8-16) 11/03/15 11:05 BUN 12 mg/dL (7-18) 11/03/15 11:05 Creatinine 0.7 mg/dL (0.7-1.3) 11/03/15 11:05 Creat Clearance w eGFR > 60 (>60) 11/02/15 07:45 Calcium 9.5 mg/dL (8.5-10.1) 11/03/15 11:05 Total Bilirubin 0.2 mg/dL (0.2-1.0) D 11/02/15 07:45 AST 13 U/L (15-37) L 11/02/15 07:45 ALT 19 U/L (12-78) D 11/02/15 07:45 Alkaline Phosphatase 83 U/L (45-117) 11/02/15 07:45 Total Protein 7.0 g/dl (6.4-8.2) 11/02/15 07:45 Albumin 2.9 g/dl (3.4-5.0) L 11/02/15 07:45 Current Medications Generic Name Dose Route Start Last Admin Trade Name Freq PRN Reason Stop Dose Admin Acetaminophen 650 mg 09/09/15 09:29 10/28/15 17:53 Tylenol Oral Solution - GT 650 mg Q6H PRN Administration FEVER Albuterol Sulfate 1 amp 11/09/15 18:00 11/11/15 18:27 Ventolin 0.083% Nebulizer Soln - NEB 1 amp QIDR KWAKU Administration Amino Acids 30 ml 09/15/15 17:30 11/11/15 17:44 Prostat Sugar-Free Packet - PO 30 ml BID@0800,1730 KWAKU Administration Amlodipine Besylate 10 mg 09/09/15 10:00 11/11/15 10:08 Norvasc - GT 10 mg DAILY KWAKU Administration Sodium Chloride 1,000 mls @ 100 mls/hr 10/28/15 14:15 11/11/15 22:35 Normal Saline - IV 100 mls/hr ASDIR KWAKU Administration Ibuprofen 200 mg 09/09/15 09:29 10/28/15 13:23 Motrin Oral Suspension - PO 200 mg Q6H PRN Administration FEVER Insulin Aspart 0 units 09/09/15 12:00 11/11/15 17:18 Novolog Vial SQ Not Given Q6HPO [facility] Protocol Insulin Detemir 28 units 09/09/15 22:00 11/10/15 23:17 Levemir Vial SQ 28 units HS KWAKU Administration Lactobacillus Acidophilus 1 tab 11/08/15 18:30 11/11/15 10:07 Bacid - PO 1 tab DAILY KWAKU Administration Lisinopril 40 mg 09/09/15 10:00 11/11/15 10:06 Prinivil - GT 40 mg DAILY KWAKU Administration Metoprolol Tartrate 5 mg 09/09/15 09:29 Lopressor Injection - IVPB Q6H PRN HYPERTENSION Metoprolol Tartrate 100 mg/ 125 mg 09/17/15 10:00 11/11/15 22:36 Metoprolol Tartrate 25 mg GT 125 mg BID KWAKU Administration Multivitamins 5 ml 09/09/15 10:00 11/11/15 10:08 Thera-Plus - GT 5 ml DAILY KWAKU Administration Ondansetron HCl 4 mg 09/09/15 09:29 Zofran Injection - IVPB Q6H PRN NAUSEA Pantoprazole Sodium 40 mg 09/09/15 10:00 11/11/15 10:08 Protonix Packets For Oral Suspension - GT 40 mg DAILY KWAKU Administration Assessment & Plan: 75 year old male with PMHx of HTN, IDDM, inguinal hernia who presented to the ED with diverticular bleed s/p right hemicolectomy with 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 Respiratory failure secondary to anoxic brain injury --Cont trach collar --Albuterol neb PRN Hypertension Lisinopril/Metoprolol/Amlodipine Multiple pressure ulcers, improving --d/c collagenase --Allevyn sacral ulcer dressing only IDDM --Levemir 28 units HS --Novolog sliding scale coverage --fingersticks 5. F/E/N: - Tube feeds: Vital 1.5 @60ml/hr 6. Prophylaxis: - SCDs bilaterally - Lovenox CODE STATUS: DNR
[2015-11-11] MEDS: INSULIN DETEMIR 100 UNITS/ML MDV SQ SCH (23:17)
[2015-11-12] MEDS: ALBUTEROL SO4 0.083% IH SOL 2.5 MG/3 ML VIAL.NEB. NEB SCH ×4 (00:05→18:22)
[2015-11-12] MEDS: INSULIN (NOVOLOG) ASPART 100 UNITS/ML 10ML VIAL SQ SCH ×4 (06:27→23:24)
[2015-11-12] MEDS: AMINO ACIDS/PROTEIN HYDROLYS SUGAR-FREE 30 ML PACKET PO SCH ×2 (08:55→18:27)
[2015-11-12] MEDS: SODIUM CHLORIDE 1,000 ML IV SCH ×2 (10:00→21:34)
[2015-11-12] MEDS: amLODIPine BESYLATE 10 MG TABLET (FP) GT SCH (10:45)
[2015-11-12] MEDS: METOPROLOL TARTRATE 100 MG, METOPROLOL TARTRATE 25 MG GT SCH ×2 (10:46→21:32)
[2015-11-12] MEDS: PANTOPRAZOLE SOD 40 MG SUSPENSION PACKET GT SCH (10:47)
[2015-11-12] MEDS: LACTOBACILLUS ACIDOPHILUS 1 EACH TAB (FP) PO SCH (10:47)
[2015-11-12] MEDS: LISINOPRIL 20 MG TABLET (FP) GT SCH (10:47)
[2015-11-12] MEDS: MULTIVITAMINS THERAPEUTIC GT SCH (15:10)
--- NOTE | 2015-11-12 18:29 | PN ---
Progress Note (short form) - Note Progress Note: SUBJECTIVE: Patient seen and examined at bedside. Eyes open, non-purposeful movement. Does not track to voice. No spasticity today in upper extremities, reflexively grabs hand on right. OBJECTIVE: Vitals Vital Signs Period Temp Pulse Resp BP Sys/Santiago Pulse Ox Last 24 Hr 97.9 F-99.2 F 69-104 20-24 130-160/79-89 99 GENERAL: The patient has periods of somnolence, periods of wakefulness. Wakeful again today. No signs of pain. HEAD: Normal with no signs of trauma. EYES: Pupils equal, round and reactive to light, sclera anicteric, conjunctiva clear. ENT: Ears normal, nares patent, oropharynx clear without exudates. Moist mucous membranes. Trach collar, thin white secretions. NECK: Normal range of motion, supple without lymphadenopathy, JVD, or masses. LUNGS: Coarse breath sounds. No wheezes, and no crackles. HEART: Regular rate and rhythm, normal S1 and S2 without murmur, rub or gallop. ABDOMEN: Soft, nontender, normoactive bowel sounds. No guarding, no rebound. No masses. UPPER EXTREMITIES: 2+ pulses, warm, well-perfused, no edema. LOWER EXTREMITIES: 2+ pulses, warm, well-perfused, no edema. NEUROLOGICAL: Unable to assess. SKIN: #1: Right buttock Stage III pressure ulcer healing 3.0cmL x 2.0cm W x 0.2cm D fibrous rim circumscribes the wound, granulating tissue at base #2: Left buttock State III pressure ulcer healing 4.0cmL x 3.0cmW x 0.2cm D fibrous rim circumscribes the wound, granulating tissue at base CBCD WBC 9.4 K/mm3 (4.0-10.0) 11/03/15 11:05 RBC 3.24 M/mm3 (4.00-5.60) L 11/03/15 11:05 Hgb 9.2 GM/dL (11.7-16.9) L 11/03/15 11:05 Hct 28.0 % (35.4-49) L 11/03/15 11:05 MCV 86.5 fl (80-96) 11/03/15 11:05 MCHC 32.9 g/dl (32.0-35.9) 11/03/15 11:05 RDW 16.5 % (11.9-15.9) H 11/03/15 11:05 Plt Count 289 K/MM3 (134-434) 11/03/15 11:05 MPV 7.5 fl (7.5-11.1) 11/03/15 11:05 CMP Sodium 143 mmol/L (136-145) 11/03/15 11:05 Potassium 3.7 mmol/L (3.5-5.1) 11/03/15 11:05 Chloride 107 mmol/L (98-107) 11/03/15 11:05 Carbon Dioxide 27 mmol/L (21-32) 11/03/15 11:05 Anion Gap 9 (8-16) 11/03/15 11:05 BUN 12 mg/dL (7-18) 11/03/15 11:05 Creatinine 0.7 mg/dL (0.7-1.3) 11/03/15 11:05 Creat Clearance w eGFR > 60 (>60) 11/02/15 07:45 Calcium 9.5 mg/dL (8.5-10.1) 11/03/15 11:05 Total Bilirubin 0.2 mg/dL (0.2-1.0) D 11/02/15 07:45 AST 13 U/L (15-37) L 11/02/15 07:45 ALT 19 U/L (12-78) D 11/02/15 07:45 Alkaline Phosphatase 83 U/L (45-117) 11/02/15 07:45 Total Protein 7.0 g/dl (6.4-8.2) 11/02/15 07:45 Albumin 2.9 g/dl (3.4-5.0) L 11/02/15 07:45 Current Medications Generic Name Dose Route Start Last Admin Trade Name Freq PRN Reason Stop Dose Admin Acetaminophen 650 mg 09/09/15 09:29 10/28/15 17:53 Tylenol Oral Solution - GT 650 mg Q6H PRN Administration FEVER Albuterol Sulfate 1 amp 11/09/15 18:00 11/11/15 18:27 Ventolin 0.083% Nebulizer Soln - NEB 1 amp QIDR KWAKU Administration Amino Acids 30 ml 09/15/15 17:30 11/11/15 17:44 Prostat Sugar-Free Packet - PO 30 ml BID@0800,1730 KWAKU Administration Amlodipine Besylate 10 mg 09/09/15 10:00 11/11/15 10:08 Norvasc - GT 10 mg DAILY KWAKU Administration Sodium Chloride 1,000 mls @ 100 mls/hr 10/28/15 14:15 11/11/15 22:35 Normal Saline - IV 100 mls/hr ASDIR KWAKU Administration Ibuprofen 200 mg 09/09/15 09:29 10/28/15 13:23 Motrin Oral Suspension - PO 200 mg Q6H PRN Administration FEVER Insulin Aspart 0 units 09/09/15 12:00 11/11/15 17:18 Novolog Vial SQ Not Given Q6HPO KWAKU Protocol Insulin Detemir 28 units 09/09/15 22:00 11/10/15 23:17 Levemir Vial SQ 28 units HS KWAKU Administration Lactobacillus Acidophilus 1 tab 11/08/15 18:30 11/11/15 10:07 Bacid - PO 1 tab DAILY KWAKU Administration Lisinopril 40 mg 09/09/15 10:00 11/11/15 10:06 Prinivil - GT 40 mg DAILY KWAKU Administration Metoprolol Tartrate 5 mg 09/09/15 09:29 Lopressor Injection - IVPB Q6H PRN HYPERTENSION Metoprolol Tartrate 100 mg/ 125 mg 09/17/15 10:00 11/11/15 22:36 Metoprolol Tartrate 25 mg GT 125 mg BID KWAKU Administration Multivitamins 5 ml 09/09/15 10:00 11/11/15 10:08 Thera-Plus - GT 5 ml DAILY KWAKU Administration Ondansetron HCl 4 mg 09/09/15 09:29 Zofran Injection - IVPB Q6H PRN NAUSEA Pantoprazole Sodium 40 mg 09/09/15 10:00 11/11/15 10:08 Protonix Packets For Oral Suspension - GT 40 mg DAILY KWAKU Administration Assessment & Plan: 75 year old male with PMHx of HTN, IDDM, inguinal hernia who presented to the ED with diverticular bleed s/p right hemicolectomy with 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 Respiratory failure secondary to anoxic brain injury --Cont trach collar --Albuterol neb PRN Hypertension Lisinopril/Metoprolol/Amlodipine Multiple pressure ulcers, improving --d/c collagenase --Allevyn sacral ulcer dressing only IDDM --Levemir 28 units HS --Novolog sliding scale coverage --fingersticks 5. F/E/N: - Tube feeds: Vital 1.5 @60ml/hr 6. Prophylaxis: - SCDs bilaterally - Lovenox CODE STATUS: DNR; weekly labs tomorrow.
[2015-11-12] MEDS: INSULIN DETEMIR 100 UNITS/ML MDV SQ SCH (22:17)
[2015-11-13] MEDS: ALBUTEROL SO4 0.083% IH SOL 2.5 MG/3 ML VIAL.NEB. NEB SCH ×5 (00:08→23:44)
[2015-11-13] MEDS: INSULIN (NOVOLOG) ASPART 100 UNITS/ML 10ML VIAL SQ SCH ×3 (06:09→18:32)
[2015-11-13 08:57] LABS: EOSINOPHIL 3.8 % (0-4.5); MCH 29.2 pg (25.7-33.7); MCHC 33.8 g/dl (32.0-35.9); MEAN CELL VOLUME 86.4 fl (80-96); MEAN PLT VOLUME 7.4 fl (7.5-11.1); NEUTROPHILS 70.7 % (42.8-82.8); PLATELET COUNT 267 K/MM3 (134-434); RDW 17.6 % (11.9-15.9); WHITE BLOOD COUNT 9.4 K/mm3 (4.0-10.0)
[2015-11-13 09:10] LABS: INR 1.29 (0.80-1.00); PROTHROMBIN TIME (PATIENT) 13.6 SEC (9.4-11.6)
[2015-11-13 09:59] LABS: ALK PHOS 98 U/L (45-117); ANION GAP 11 (8-16); BILIRUBIN,TOTAL 0.2 mg/dL (0.2-1.0); CO2 27 mmol/L (21-32); CREATININE 0.5 mg/dL (0.7-1.3); GLUCOSE,RANDOM 150 mg/dL (74-106); MAGNESIUM 1.6 mg/dL (1.8-2.4); PHOSPHOROUS 3.4 mg/dL (2.5-4.9); SGOT/AST 14 U/L (15-37); SGPT/ALT 17 U/L (12-78); TOT PROT 7.3 g/dl (6.4-8.2)
[2015-11-13] MEDS: SODIUM CHLORIDE 1,000 ML IV SCH ×3 (10:04→21:35)
[2015-11-13] MEDS: LISINOPRIL 20 MG TABLET (FP) GT SCH (10:05)
[2015-11-13] MEDS: PANTOPRAZOLE SOD 40 MG SUSPENSION PACKET GT SCH (10:05)
[2015-11-13] MEDS: MULTIVITAMINS THERAPEUTIC GT SCH (10:05)
[2015-11-13] MEDS: LACTOBACILLUS ACIDOPHILUS 1 EACH TAB (FP) PO SCH (10:05)
[2015-11-13] MEDS: METOPROLOL TARTRATE 100 MG, METOPROLOL TARTRATE 25 MG GT SCH ×2 (10:05→21:33)
[2015-11-13] MEDS: amLODIPine BESYLATE 10 MG TABLET (FP) GT SCH (10:05)
[2015-11-13] MEDS: AMINO ACIDS/PROTEIN HYDROLYS SUGAR-FREE 30 ML PACKET PO SCH ×2 (10:06→18:41)
[2015-11-13] MEDS: POTASSIUM CHLORIDE 40 MEQ/30 ML UNIT DOSE CUP GT SCH ×2 (12:37→18:41)
[2015-11-13] MEDS: INSULIN DETEMIR 100 UNITS/ML MDV SQ SCH (22:33)
--- NOTE | 2015-11-13 23:05 | PN ---
Progress Note (short form) - Note Progress Note: SUBJECTIVE: Patient seen and examined at bedside. Eyes open, non-purposeful movement. Does not track to voice. OBJECTIVE: Vitals Vital Signs Period Temp Pulse Resp BP Sys/Santiago Pulse Ox Last 24 Hr 97.7 F-99.5 F 86-92 18-20 148-160/61-94 100-100 GENERAL: The patient has periods of somnolence, periods of wakefulness. Wakeful today. Eyes open. No signs of pain. HEAD: Normal with no signs of trauma. EYES: Pupils equal, round and reactive to light, sclera anicteric, conjunctiva clear. ENT: Ears normal, nares patent, oropharynx clear without exudates. Moist mucous membranes. Trach collar, no secretions. NECK: Normal range of motion, supple without lymphadenopathy, JVD, or masses. LUNGS: Coarse breath sounds. No wheezes, and no crackles. HEART: Regular rate and rhythm, normal S1 and S2 without murmur, rub or gallop. ABDOMEN: Soft, nontender, normoactive bowel sounds. No guarding, no rebound. No masses. UPPER EXTREMITIES: 2+ pulses, warm, well-perfused, no edema. LOWER EXTREMITIES: 2+ pulses, warm, well-perfused, no edema. NEUROLOGICAL: Unable to assess. SKIN: Wounds not visualized today. Laboratory Results - last 24 hr 11/13/15 11/13/15 11/13/15 07:15 12:55 18:30 WBC 9.4 RBC 3.43 L Hgb 10.0 L Hct 29.7 L MCV 86.4 MCHC 33.8 RDW 17.6 H Plt Count 267 MPV 7.4 L Neutrophils % 70.7 Lymphocytes % 20.4 Monocytes % 4.1 Eosinophils % 3.8 Basophils % 1.0 INR 1.29 H Sodium 142 Potassium 3.4 L Chloride 104 Carbon Dioxide 27 Anion Gap 11 BUN 11 Creatinine 0.5 L D Creat Clearance w eGFR > 60 POC Glucometer 179 150 Random Glucose 150 H D Calcium 10.0 Phosphorus 3.4 D Magnesium 1.6 L Total Bilirubin 0.2 AST 14 L ALT 17 Alkaline Phosphatase 98 Total Protein 7.3 Albumin 3.0 L Current Medications Generic Name Dose Route Start Last Admin Trade Name Freq PRN Reason Stop Dose Admin Acetaminophen 650 mg 09/09/15 09:29 10/28/15 17:53 Tylenol Oral Solution - GT 650 mg Q6H PRN Administration FEVER Albuterol Sulfate 1 amp 11/09/15 18:00 11/13/15 17:53 Ventolin 0.083% Nebulizer Soln - NEB 1 amp QIDR KWAKU Administration Amino Acids 30 ml 09/15/15 17:30 11/13/15 18:41 Prostat Sugar-Free Packet - PO 30 ml BID@0800,1730 KWAKU Administration Amlodipine Besylate 10 mg 09/09/15 10:00 11/13/15 10:05 Norvasc - GT 10 mg DAILY KWAKU Administration Sodium Chloride 1,000 mls @ 100 mls/hr 10/28/15 14:15 11/13/15 21:35 Normal Saline - IV 100 mls/hr ASDIR KWAKU Administration Ibuprofen 200 mg 09/09/15 09:29 10/28/15 13:23 Motrin Oral Suspension - PO 200 mg Q6H PRN Administration FEVER Insulin Aspart 0 units 09/09/15 12:00 11/13/15 18:32 Novolog Vial SQ Not Given Q6HPO [facility] Protocol Insulin Detemir 28 units 09/09/15 22:00 11/13/15 22:33 Levemir Vial SQ 28 units HS KWAKU Administration Lactobacillus Acidophilus 1 tab 11/08/15 18:30 11/13/15 10:05 Bacid - PO 1 tab DAILY KWAKU Administration Lisinopril 40 mg 09/09/15 10:00 11/13/15 10:05 Prinivil - GT 40 mg DAILY KWAKU Administration Metoprolol Tartrate 5 mg 09/09/15 09:29 Lopressor Injection - IVPB Q6H PRN HYPERTENSION Metoprolol Tartrate 100 mg/ 125 mg 09/17/15 10:00 11/13/15 21:33 Metoprolol Tartrate 25 mg GT 125 mg BID KWAKU Administration Multivitamins 5 ml 09/09/15 10:00 11/13/15 10:05 Thera-Plus - GT 5 ml DAILY KWAKU Administration Ondansetron HCl 4 mg 09/09/15 09:29 Zofran Injection - IVPB Q6H PRN NAUSEA Pantoprazole Sodium 40 mg 09/09/15 10:00 11/13/15 10:05 Protonix Packets For Oral Suspension - GT 40 mg DAILY KWAKU Administration Assessment & Plan: 75 year old male with PMHx of HTN, IDDM, inguinal hernia who presented to the ED with diverticular bleed s/p right hemicolectomy with 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 Respiratory failure secondary to anoxic brain injury --Cont trach collar --Albuterol neb PRN Hypertension Lisinopril/Metoprolol/Amlodipine Multiple pressure ulcers, improving --d/c collagenase --Allevyn sacral ulcer dressing only IDDM --Levemir 28 units HS --Novolog sliding scale coverage --fingersticks Fluids/Electrolytes/Nutrition Fluids: d/c IV fluids Electrolytes: replete as indicated; Mg and K repleted today Nutrition: tube feeds at goal; will discuss free water calculation with nutrition DVT prophylaxis: SCDs bilaterally, Lovenox CODE STATUS: DNR
[2015-11-14] MEDS: INSULIN (NOVOLOG) ASPART 100 UNITS/ML 10ML VIAL SQ SCH ×4 (01:07→18:20)
[2015-11-14] MEDS: ALBUTEROL SO4 0.083% IH SOL 2.5 MG/3 ML VIAL.NEB. NEB SCH ×4 (06:30→23:25)
[2015-11-14 09:54] LABS: CALCIUM 9.7 mg/dL (8.5-10.1); CREATININE 0.5 mg/dL (0.7-1.3)
[2015-11-14] MEDS: LACTOBACILLUS ACIDOPHILUS 1 EACH TAB (FP) PO SCH (10:42)
[2015-11-14] MEDS: PANTOPRAZOLE SOD 40 MG SUSPENSION PACKET GT SCH (10:42)
[2015-11-14] MEDS: LISINOPRIL 20 MG TABLET (FP) GT SCH (10:42)
[2015-11-14] MEDS: MULTIVITAMINS THERAPEUTIC GT SCH (10:42)
[2015-11-14] MEDS: AMINO ACIDS/PROTEIN HYDROLYS SUGAR-FREE 30 ML PACKET PO SCH ×2 (10:43→18:20)
[2015-11-14] MEDS: amLODIPine BESYLATE 10 MG TABLET (FP) GT SCH (10:43)
[2015-11-14] MEDS: METOPROLOL TARTRATE 100 MG, METOPROLOL TARTRATE 25 MG GT SCH ×2 (10:43→21:38)
[2015-11-14 11:23] LABS: MAGNESIUM 1.9 mg/dL (1.8-2.4)
--- NOTE | 2015-11-14 16:37 | PN ---
Progress Note (short form) - Note Progress Note: SUBJECTIVE: Patient seen and examined at bedside. OBJECTIVE: Vitals Vital Signs Period Temp Pulse Resp BP Sys/Santiago Pulse Ox Last 24 Hr 97.9 F-98.7 F 70-100 18-22 139-150/69-94 99-100 GENERAL: The patient has periods of somnolence, periods of wakefulness. Eyes closed today. No signs of pain. HEAD: Normal with no signs of trauma. EYES: Pupils equal, round and reactive to light, sclera anicteric, conjunctiva clear. ENT: Ears normal, nares patent, oropharynx clear without exudates. Moist mucous membranes. Trach collar, no secretions. NECK: Normal range of motion, supple without lymphadenopathy, JVD, or masses. LUNGS: Coarse breath sounds. No wheezes, and no crackles. HEART: Regular rate and rhythm, normal S1 and S2 without murmur, rub or gallop. ABDOMEN: Soft, nontender, normoactive bowel sounds. No guarding, no rebound. No masses. UPPER EXTREMITIES: 2+ pulses, warm, well-perfused, no edema. LOWER EXTREMITIES: 2+ pulses, warm, well-perfused, no edema. NEUROLOGICAL: Unable to assess. SKIN: Wounds not visualized today. CBCD WBC 9.4 K/mm3 (4.0-10.0) 11/13/15 07:15 RBC 3.43 M/mm3 (4.00-5.60) L 11/13/15 07:15 Hgb 10.0 GM/dL (11.7-16.9) L 11/13/15 07:15 Hct 29.7 % (35.4-49) L 11/13/15 07:15 MCV 86.4 fl (80-96) 11/13/15 07:15 MCHC 33.8 g/dl (32.0-35.9) 11/13/15 07:15 RDW 17.6 % (11.9-15.9) H 11/13/15 07:15 Plt Count 267 K/MM3 (134-434) 11/13/15 07:15 MPV 7.4 fl (7.5-11.1) L 11/13/15 07:15 CMP Sodium 144 mmol/L (136-145) 11/14/15 09:00 Potassium 3.7 mmol/L (3.5-5.1) 11/14/15 09:00 Chloride 107 mmol/L (98-107) 11/14/15 09:00 Carbon Dioxide 28 mmol/L (21-32) 11/14/15 09:00 Anion Gap 9 (8-16) 11/14/15 09:00 BUN 13 mg/dL (7-18) 11/14/15 09:00 Creatinine 0.5 mg/dL (0.7-1.3) L 11/14/15 09:00 Creat Clearance w eGFR > 60 (>60) 11/13/15 07:15 Calcium 9.7 mg/dL (8.5-10.1) 11/14/15 09:00 Total Bilirubin 0.2 mg/dL (0.2-1.0) 11/13/15 07:15 AST 14 U/L (15-37) L 11/13/15 07:15 ALT 17 U/L (12-78) 11/13/15 07:15 Alkaline Phosphatase 98 U/L (45-117) 11/13/15 07:15 Total Protein 7.3 g/dl (6.4-8.2) 11/13/15 07:15 Albumin 3.0 g/dl (3.4-5.0) L 11/13/15 07:15 Current Medications Generic Name Dose Route Start Last Admin Trade Name Freq PRN Reason Stop Dose Admin Acetaminophen 650 mg 09/09/15 09:29 10/28/15 17:53 Tylenol Oral Solution - GT 650 mg Q6H PRN Administration FEVER Albuterol Sulfate 1 amp 11/09/15 18:00 11/14/15 11:27 Ventolin 0.083% Nebulizer Soln - NEB 1 amp QIDR KWAKU Administration Amino Acids 30 ml 09/15/15 17:30 11/14/15 10:43 Prostat Sugar-Free Packet - PO 30 ml BID@0800,1730 KWAKU Administration Amlodipine Besylate 10 mg 09/09/15 10:00 11/14/15 10:43 Norvasc - GT 10 mg DAILY KWAKU Administration Ibuprofen 200 mg 09/09/15 09:29 10/28/15 13:23 Motrin Oral Suspension - PO 200 mg Q6H PRN Administration FEVER Insulin Aspart 0 units 09/09/15 12:00 11/14/15 12:01 Novolog Vial SQ 2 units Q6HPO KWAKU Administration Protocol Insulin Detemir 28 units 09/09/15 22:00 11/13/15 22:33 Levemir Vial SQ 28 units HS KWAKU Administration Lactobacillus Acidophilus 1 tab 11/08/15 18:30 11/14/15 10:42 Bacid - PO 1 tab DAILY KWAKU Administration Lisinopril 40 mg 09/09/15 10:00 11/14/15 10:42 Prinivil - GT 40 mg DAILY KWAKU Administration Metoprolol Tartrate 5 mg 09/09/15 09:29 Lopressor Injection - IVPB Q6H PRN HYPERTENSION Metoprolol Tartrate 100 mg/ 125 mg 09/17/15 10:00 11/14/15 10:43 Metoprolol Tartrate 25 mg GT 125 mg BID KWAKU Administration Multivitamins 5 ml 09/09/15 10:00 11/14/15 10:42 Thera-Plus - GT 5 ml DAILY KWAKU Administration Pantoprazole Sodium 40 mg 09/09/15 10:00 11/14/15 10:42 Protonix Packets For Oral Suspension - GT 40 mg DAILY KWAKU Administration Assessment & Plan: 75 year old male with PMHx of HTN, IDDM, inguinal hernia who presented to the ED with diverticular bleed s/p right hemicolectomy with 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 Respiratory failure secondary to anoxic brain injury --Cont trach collar --Albuterol neb PRN Hypertension Lisinopril/Metoprolol/Amlodipine Multiple pressure ulcers, improving --d/c collagenase --Allevyn sacral ulcer dressing only IDDM --Levemir 28 units HS --Novolog sliding scale coverage --fingersticks Fluids/Electrolytes/Nutrition Fluids: d/c IV fluids Electrolytes: replete as indicated; Mg and K WNL today Nutrition: tube feeds at goal; will discuss free water calculation with nutrition DVT prophylaxis: SCDs bilaterally, Lovenox CODE STATUS: DNR
[2015-11-14] MEDS: INSULIN DETEMIR 100 UNITS/ML MDV SQ SCH (21:40)
[2015-11-15] MEDS: INSULIN (NOVOLOG) ASPART 100 UNITS/ML 10ML VIAL SQ SCH ×4 (00:22→18:35)
[2015-11-15] MEDS: ALBUTEROL SO4 0.083% IH SOL 2.5 MG/3 ML VIAL.NEB. NEB SCH ×3 (06:37→18:48)
[2015-11-15] MEDS: AMINO ACIDS/PROTEIN HYDROLYS SUGAR-FREE 30 ML PACKET PO SCH (09:18)
[2015-11-15] MEDS: LISINOPRIL 20 MG TABLET (FP) GT SCH (09:55)
[2015-11-15] MEDS: LACTOBACILLUS ACIDOPHILUS 1 EACH TAB (FP) PO SCH (09:56)
[2015-11-15] MEDS: amLODIPine BESYLATE 10 MG TABLET (FP) GT SCH (09:56)
[2015-11-15] MEDS: METOPROLOL TARTRATE 100 MG, METOPROLOL TARTRATE 25 MG GT SCH ×2 (09:56→22:13)
[2015-11-15] MEDS: MULTIVITAMINS THERAPEUTIC GT SCH (09:57)
[2015-11-15] MEDS: PANTOPRAZOLE SOD 40 MG SUSPENSION PACKET GT SCH (09:57)
--- NOTE | 2015-11-15 17:56 | PN ---
Progress Note (short form) - Note Progress Note: SUBJECTIVE: Patient seen and examined at bedside. Awake. OBJECTIVE: Vitals Vital Signs Period Temp Pulse Resp BP Sys/Santiago Pulse Ox Last 24 Hr 97.9 F-98.7 F 70-100 18-22 139-150/69-94 99-100 GENERAL: The patient has periods of somnolence, periods of wakefulness. Awake today, moving head back and forth in the absence of any type of stimulus. No vocalization, no grimacing. No indication of pain. HEAD: Normal with no signs of trauma. EYES: Pupils equal, round and reactive to light, sclera anicteric, conjunctiva clear. ENT: Ears normal, nares patent, oropharynx clear without exudates. Moist mucous membranes. Trach collar, thin, white/sharma secretions. NECK: Normal range of motion, supple without lymphadenopathy, JVD, or masses. LUNGS: Coarse breath sounds. No wheezes, and no crackles. HEART: Regular rate and rhythm, normal S1 and S2 without murmur, rub or gallop. ABDOMEN: Soft, nontender, normoactive bowel sounds. No guarding, no rebound. No masses. UPPER EXTREMITIES: 2+ pulses, warm, well-perfused, no edema. LOWER EXTREMITIES: 2+ pulses, warm, well-perfused, no edema. NEUROLOGICAL: Unable to assess. SKIN: Wounds not visualized today. CBCD WBC 9.4 K/mm3 (4.0-10.0) 11/13/15 07:15 RBC 3.43 M/mm3 (4.00-5.60) L 11/13/15 07:15 Hgb 10.0 GM/dL (11.7-16.9) L 11/13/15 07:15 Hct 29.7 % (35.4-49) L 11/13/15 07:15 MCV 86.4 fl (80-96) 11/13/15 07:15 MCHC 33.8 g/dl (32.0-35.9) 11/13/15 07:15 RDW 17.6 % (11.9-15.9) H 11/13/15 07:15 Plt Count 267 K/MM3 (134-434) 11/13/15 07:15 MPV 7.4 fl (7.5-11.1) L 11/13/15 07:15 CMP Sodium 144 mmol/L (136-145) 11/14/15 09:00 Potassium 3.7 mmol/L (3.5-5.1) 11/14/15 09:00 Chloride 107 mmol/L (98-107) 11/14/15 09:00 Carbon Dioxide 28 mmol/L (21-32) 11/14/15 09:00 Anion Gap 9 (8-16) 11/14/15 09:00 BUN 13 mg/dL (7-18) 11/14/15 09:00 Creatinine 0.5 mg/dL (0.7-1.3) L 11/14/15 09:00 Creat Clearance w eGFR > 60 (>60) 11/13/15 07:15 Calcium 9.7 mg/dL (8.5-10.1) 11/14/15 09:00 Total Bilirubin 0.2 mg/dL (0.2-1.0) 11/13/15 07:15 AST 14 U/L (15-37) L 11/13/15 07:15 ALT 17 U/L (12-78) 11/13/15 07:15 Alkaline Phosphatase 98 U/L (45-117) 11/13/15 07:15 Total Protein 7.3 g/dl (6.4-8.2) 11/13/15 07:15 Albumin 3.0 g/dl (3.4-5.0) L 11/13/15 07:15 Current Medications Generic Name Dose Route Start Last Admin Trade Name Freq PRN Reason Stop Dose Admin Acetaminophen 650 mg 09/09/15 09:29 10/28/15 17:53 Tylenol Oral Solution - GT 650 mg Q6H PRN Administration FEVER Albuterol Sulfate 1 amp 11/09/15 18:00 11/15/15 12:00 Ventolin 0.083% Nebulizer Soln - NEB 1 amp QIDR KWAKU Administration Amino Acids 30 ml 09/15/15 17:30 11/15/15 09:18 Prostat Sugar-Free Packet - PO 30 ml BID@0800,1730 KWAKU Administration Amlodipine Besylate 10 mg 09/09/15 10:00 11/15/15 09:56 Norvasc - GT 10 mg DAILY KWAKU Administration Ibuprofen 200 mg 09/09/15 09:29 10/28/15 13:23 Motrin Oral Suspension - PO 200 mg Q6H PRN Administration FEVER Insulin Aspart 0 units 09/09/15 12:00 11/15/15 12:21 Novolog Vial SQ Not Given Q6HPO [facility] Protocol Insulin Detemir 28 units 09/09/15 22:00 11/14/15 21:40 Levemir Vial SQ 28 units HS KWAKU Administration Lactobacillus Acidophilus 1 tab 11/08/15 18:30 11/15/15 09:56 Bacid - PO 1 tab DAILY KWAKU Administration Lisinopril 40 mg 09/09/15 10:00 11/15/15 09:55 Prinivil - GT 40 mg DAILY KWAKU Administration Metoprolol Tartrate 5 mg 09/09/15 09:29 Lopressor Injection - IVPB Q6H PRN HYPERTENSION Metoprolol Tartrate 100 mg/ 125 mg 09/17/15 10:00 11/15/15 09:56 Metoprolol Tartrate 25 mg GT 125 mg BID KWAKU Administration Multivitamins 5 ml 09/09/15 10:00 11/15/15 09:57 Thera-Plus - GT 5 ml DAILY KWAKU Administration Pantoprazole Sodium 40 mg 09/09/15 10:00 11/15/15 09:57 Protonix Packets For Oral Suspension - GT 40 mg DAILY KWAKU Administration Assessment & Plan: 75 year old male with PMHx of HTN, IDDM, inguinal hernia who presented to the ED with diverticular bleed s/p right hemicolectomy with 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 Respiratory failure secondary to anoxic brain injury --Cont trach collar --Albuterol neb PRN Hypertension Lisinopril/Metoprolol/Amlodipine Multiple pressure ulcers, improving --Allevyn sacral ulcer dressing only IDDM --Levemir 28 units HS --Novolog sliding scale coverage --fingersticks Fluids/Electrolytes/Nutrition Fluids: 45mL/hour free water via pump; appreciate nutrition's input Electrolytes: replete as indicated; Mg and K WNL today Nutrition: tube feeds at goal DVT prophylaxis: SCDs bilaterally, Lovenox CODE STATUS: DNR
[2015-11-15] MEDS: INSULIN DETEMIR 100 UNITS/ML MDV SQ SCH (22:12)
[2015-11-16] MEDS: INSULIN (NOVOLOG) ASPART 100 UNITS/ML 10ML VIAL SQ SCH ×4 (00:10→18:42)
[2015-11-16] MEDS: ALBUTEROL SO4 0.083% IH SOL 2.5 MG/3 ML VIAL.NEB. NEB SCH ×4 (00:17→18:09)
[2015-11-16] MEDS: MULTIVITAMINS THERAPEUTIC GT SCH (10:58)
[2015-11-16] MEDS: METOPROLOL TARTRATE 100 MG, METOPROLOL TARTRATE 25 MG GT SCH (10:58)
[2015-11-16] MEDS: LACTOBACILLUS ACIDOPHILUS 1 EACH TAB (FP) PO SCH (10:58)
[2015-11-16] MEDS: AMINO ACIDS/PROTEIN HYDROLYS SUGAR-FREE 30 ML PACKET PO SCH ×2 (10:58→18:41)
[2015-11-16] MEDS: LISINOPRIL 20 MG TABLET (FP) GT SCH (10:58)
[2015-11-16] MEDS: amLODIPine BESYLATE 10 MG TABLET (FP) GT SCH (10:58)
[2015-11-16] MEDS: PANTOPRAZOLE SOD 40 MG SUSPENSION PACKET GT SCH (12:05)
[2015-11-16] MEDS: INSULIN DETEMIR 100 UNITS/ML MDV SQ SCH (21:42)
--- NOTE | 2015-11-16 21:43 | PN ---
Progress Note (short form) - Note Progress Note: SUBJECTIVE: Patient seen and examined at bedside. Awake. OBJECTIVE: Vitals Vital Signs Period Temp Pulse Resp BP Sys/Santiago Pulse Ox Last 24 Hr 98.0 F-99.4 F 91-115 18-22 130-172/77-93 97-100 GENERAL: The patient has periods of somnolence, periods of wakefulness. Awake today, moving head back and forth in the absence of any type of stimulus. No vocalization, no grimacing. No indication of pain. HEAD: Normal with no signs of trauma. EYES: Pupils equal, round and reactive to light, sclera anicteric, conjunctiva clear. ENT: Ears normal, nares patent, oropharynx clear without exudates. Moist mucous membranes. Trach collar, thin, white/sharma secretions. NECK: Normal range of motion, supple without lymphadenopathy, JVD, or masses. LUNGS: Coarse breath sounds. No wheezes, and no crackles. HEART: Regular rate and rhythm, normal S1 and S2 without murmur, rub or gallop. ABDOMEN: Soft, nontender, normoactive bowel sounds. No guarding, no rebound. No masses. UPPER EXTREMITIES: 2+ pulses, warm, well-perfused, no edema. LOWER EXTREMITIES: 2+ pulses, warm, well-perfused, no edema. NEUROLOGICAL: Unable to assess. SKIN: Wounds not visualized today. CBCD WBC 9.4 K/mm3 (4.0-10.0) 11/13/15 07:15 RBC 3.43 M/mm3 (4.00-5.60) L 11/13/15 07:15 Hgb 10.0 GM/dL (11.7-16.9) L 11/13/15 07:15 Hct 29.7 % (35.4-49) L 11/13/15 07:15 MCV 86.4 fl (80-96) 11/13/15 07:15 MCHC 33.8 g/dl (32.0-35.9) 11/13/15 07:15 RDW 17.6 % (11.9-15.9) H 11/13/15 07:15 Plt Count 267 K/MM3 (134-434) 11/13/15 07:15 MPV 7.4 fl (7.5-11.1) L 11/13/15 07:15 CMP Sodium 144 mmol/L (136-145) 11/14/15 09:00 Potassium 3.7 mmol/L (3.5-5.1) 11/14/15 09:00 Chloride 107 mmol/L (98-107) 11/14/15 09:00 Carbon Dioxide 28 mmol/L (21-32) 11/14/15 09:00 Anion Gap 9 (8-16) 11/14/15 09:00 BUN 13 mg/dL (7-18) 11/14/15 09:00 Creatinine 0.5 mg/dL (0.7-1.3) L 11/14/15 09:00 Creat Clearance w eGFR > 60 (>60) 11/13/15 07:15 Calcium 9.7 mg/dL (8.5-10.1) 11/14/15 09:00 Total Bilirubin 0.2 mg/dL (0.2-1.0) 11/13/15 07:15 AST 14 U/L (15-37) L 11/13/15 07:15 ALT 17 U/L (12-78) 11/13/15 07:15 Alkaline Phosphatase 98 U/L (45-117) 11/13/15 07:15 Total Protein 7.3 g/dl (6.4-8.2) 11/13/15 07:15 Albumin 3.0 g/dl (3.4-5.0) L 11/13/15 07:15 Current Medications Generic Name Dose Route Start Last Admin Trade Name Freq PRN Reason Stop Dose Admin Acetaminophen 650 mg 09/09/15 09:29 10/28/15 17:53 Tylenol Oral Solution - GT 650 mg Q6H PRN Administration FEVER Albuterol Sulfate 1 amp 11/09/15 18:00 11/16/15 18:09 Ventolin 0.083% Nebulizer Soln - NEB 1 amp QIDR KWAKU Administration Amino Acids 30 ml 09/15/15 17:30 11/16/15 18:41 Prostat Sugar-Free Packet - PO 30 ml BID@0800,1730 KWAKU Administration Amlodipine Besylate 10 mg 09/09/15 10:00 11/16/15 10:58 Norvasc - GT 10 mg DAILY KWAKU Administration Ibuprofen 200 mg 09/09/15 09:29 10/28/15 13:23 Motrin Oral Suspension - PO 200 mg Q6H PRN Administration FEVER Insulin Aspart 0 units 09/09/15 12:00 11/16/15 18:42 Novolog Vial SQ 2 units Q6HPO KWAKU Administration Protocol Insulin Detemir 28 units 09/09/15 22:00 11/15/15 22:12 Levemir Vial SQ 28 units HS KWAKU Administration Lactobacillus Acidophilus 1 tab 11/08/15 18:30 11/16/15 10:58 Bacid - PO 1 tab DAILY KWAKU Administration Lisinopril 40 mg 09/09/15 10:00 11/16/15 10:58 Prinivil - GT 40 mg DAILY KWAKU Administration Metoprolol Tartrate 5 mg 09/09/15 09:29 Lopressor Injection - IVPB Q6H PRN HYPERTENSION Metoprolol Tartrate 150 mg 11/16/15 21:12 Lopressor - GT BID KWAKU Multivitamins 5 ml 09/09/15 10:00 11/16/15 10:58 Thera-Plus - GT 5 ml DAILY KWAKU Administration Pantoprazole Sodium 40 mg 09/09/15 10:00 11/16/15 12:05 Protonix Packets For Oral Suspension - GT 40 mg DAILY KWAKU Administration Assessment & Plan: 75 year old male with PMHx of HTN, IDDM, inguinal hernia who presented to the ED with diverticular bleed s/p right hemicolectomy with 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 Anoxic brain injury --second day where patient observed to have increased repetitive rotation of head and neck, eyes open; will obtain EEG Respiratory failure secondary to anoxic brain injury --Cont trach collar --Albuterol neb PRN Hypertension --blood pressure and HR have been incrementally increasing; increase metoprolol to 150mg GT BID; continue amlodipine, lisinopril Sacral pressure ulcers, improving --these wounds continue to improve and are monitored on weekly wound rounds; granulating tissue in wound beds --Allevyn sacral ulcer dressing only IDDM --Levemir 28 units HS --Novolog sliding scale coverage --fingersticks Fluids/Electrolytes/Nutrition Fluids: 45mL/hour free water via pump; appreciate nutrition's input Electrolytes: replete as indicated; Mg and K WNL today Nutrition: tube feeds at goal DVT prophylaxis: SCDs bilaterally, Lovenox CODE STATUS: DNR
[2015-11-16] MEDS: METOPROLOL TARTRATE 50 MG TABLET (FP) GT SCH (21:45)
[2015-11-17] MEDS: INSULIN (NOVOLOG) ASPART 100 UNITS/ML 10ML VIAL SQ SCH ×4 (00:15→17:40)
[2015-11-17] MEDS: ALBUTEROL SO4 0.083% IH SOL 2.5 MG/3 ML VIAL.NEB. NEB SCH ×4 (06:00→18:20)
[2015-11-17] MEDS: LISINOPRIL 20 MG TABLET (FP) GT SCH (09:52)
[2015-11-17] MEDS: METOPROLOL TARTRATE 50 MG TABLET (FP) GT SCH ×2 (09:52→21:47)
[2015-11-17] MEDS: LACTOBACILLUS ACIDOPHILUS 1 EACH TAB (FP) PO SCH (09:52)
[2015-11-17] MEDS: MULTIVITAMINS THERAPEUTIC GT SCH (09:53)
[2015-11-17] MEDS: PANTOPRAZOLE SOD 40 MG SUSPENSION PACKET GT SCH (09:53)
[2015-11-17] MEDS: amLODIPine BESYLATE 10 MG TABLET (FP) GT SCH (09:53)
[2015-11-17] MEDS: AMINO ACIDS/PROTEIN HYDROLYS SUGAR-FREE 30 ML PACKET PO SCH ×3 (09:53→21:47)
--- NOTE | 2015-11-17 17:49 | PN ---
Progress Note (short form) - Note Progress Note: This patient is new to me today (11/17/2015) on this admission,was admitted on . Date of admission 06/27/2015 for GI bleed. Events noted. Patient is a 75 yo M with PMHx HTN, DM, inguinal hernia was admitted on 2014 for Bright red blood per rectum and melena with multiple syncopal episodes. Dxgnosed with persistent diverticular bleed s/p colonoscopy ,s/p R hemicolectomy due to GI bleed on 06/29/2015. Course was complicated with CVA. patient was in the ICU unresponsive with anoxic brain injury had tracheostomy on 07/23/2015 .and then transferred to floor. Patient is on the vent. lying in bed unresponsive ,due anoxia . Vital Signs Temperature 97.3 F L 11/17/15 14:43 Pulse Rate 75 11/17/15 14:43 Respiratory Rate 17 11/17/15 14:43 Blood Pressure 138/74 11/17/15 14:43 O2 Sat by Pulse Oximetry (%) 97 11/17/15 09:28 GENERAL: The patient has periods of somnolence, periods of wakefulness. Awake today, moving head back and forth in the absence of any type of stimulus. No vocalization, no grimacing. No indication of pain. HEAD: Normal with no signs of trauma. EYES: PERRLA, sclera anicteric, conjunctiva clear. ENT: positive for Trach collar, thin, white/sharma secretions. NECK: supple , no JVD, no masses. LUNGS: Coarse breath sounds. No wheezes, and no crackles. HEART: RRR, normal S1 and S2 without murmur, rub or gallop. ABDOMEN: Soft, NT, normoactive bowel sounds. NG,NR, No masses. EXTREMITIES: 2+ pulses, warm, well-perfused, no edema. NEUROLOGICAL: Unable to assess. SKIN: Wounds not visualized today. CBCD WBC 9.4 K/mm3 (4.0-10.0) 11/13/15 07:15 RBC 3.43 M/mm3 (4.00-5.60) L 11/13/15 07:15 Hgb 10.0 GM/dL (11.7-16.9) L 11/13/15 07:15 Hct 29.7 % (35.4-49) L 11/13/15 07:15 MCV 86.4 fl (80-96) 11/13/15 07:15 MCHC 33.8 g/dl (32.0-35.9) 11/13/15 07:15 RDW 17.6 % (11.9-15.9) H 11/13/15 07:15 Plt Count 267 K/MM3 (134-434) 11/13/15 07:15 MPV 7.4 fl (7.5-11.1) L 11/13/15 07:15 CMP Sodium 144 mmol/L (136-145) 11/14/15 09:00 Potassium 3.7 mmol/L (3.5-5.1) 11/14/15 09:00 Chloride 107 mmol/L (98-107) 11/14/15 09:00 Carbon Dioxide 28 mmol/L (21-32) 11/14/15 09:00 Anion Gap 9 (8-16) 11/14/15 09:00 BUN 13 mg/dL (7-18) 11/14/15 09:00 Creatinine 0.5 mg/dL (0.7-1.3) L 11/14/15 09:00 Creat Clearance w eGFR > 60 (>60) 11/13/15 07:15 Random Glucose 186 mg/dL (74-106) H D 11/14/15 09:00 Calcium 9.7 mg/dL (8.5-10.1) 11/14/15 09:00 Total Bilirubin 0.2 mg/dL (0.2-1.0) 11/13/15 07:15 AST 14 U/L (15-37) L 11/13/15 07:15 ALT 17 U/L (12-78) 11/13/15 07:15 Alkaline Phosphatase 98 U/L (45-117) 11/13/15 07:15 Total Protein 7.3 g/dl (6.4-8.2) 11/13/15 07:15 Albumin 3.0 g/dl (3.4-5.0) L 11/13/15 07:15 CARDIAC ENZYMES Creatine Kinase 62 IU/L (38-174) 06/28/15 09:35 Troponin I 0.07 ng/ml (0.03-0.5) D 07/09/15 05:00 Current Medications Generic Name Dose Route Start Last Admin Trade Name Freq PRN Reason Stop Dose Admin Acetaminophen 650 mg 09/09/15 09:29 10/28/15 17:53 Tylenol Oral Solution - GT 650 mg Q6H PRN Administration FEVER Albuterol Sulfate 1 amp 11/09/15 18:00 11/17/15 12:30 Ventolin 0.083% Nebulizer Soln - NEB 1 amp QIDR KWAKU Administration Amino Acids 30 ml 09/15/15 17:30 11/17/15 17:38 Prostat Sugar-Free Packet - PO Not Given BID@0800,1730 KWAKU Amlodipine Besylate 10 mg 09/09/15 10:00 11/17/15 09:53 Norvasc - GT 10 mg DAILY KWAKU Administration Ibuprofen 200 mg 09/09/15 09:29 10/28/15 13:23 Motrin Oral Suspension - PO 200 mg Q6H PRN Administration FEVER Insulin Aspart 0 units 09/09/15 12:00 11/17/15 17:40 Novolog Vial SQ 2 units Q6HPO KWAKU Administration Protocol Insulin Detemir 28 units 09/09/15 22:00 11/16/15 21:42 Levemir Vial SQ 28 units HS KWAKU Administration Lactobacillus Acidophilus 1 tab 11/08/15 18:30 11/17/15 09:52 Bacid - PO 1 tab DAILY KWAKU Administration Lisinopril 40 mg 09/09/15 10:00 11/17/15 09:52 Prinivil - GT 40 mg DAILY KWAKU Administration Metoprolol Tartrate 5 mg 09/09/15 09:29 Lopressor Injection - IVPB Q6H PRN HYPERTENSION Metoprolol Tartrate 150 mg 11/16/15 21:12 11/17/15 09:52 Lopressor - GT 150 mg BID KWAKU Administration Multivitamins 5 ml 09/09/15 10:00 11/17/15 09:53 Thera-Plus - GT 5 ml DAILY KWAKU Administration Pantoprazole Sodium 40 mg 09/09/15 10:00 11/17/15 09:53 Protonix Packets For Oral Suspension - GT 40 mg DAILY KWAKU Administration 75 year old male with PMHx of HTN, IDDM, inguinal hernia who presented to the ED with diverticular bleed s/p right hemicolectomy with 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 1-s/p Acute GI bleed, s/p colonoscopy and R hemicolectomy. no further bleed noted 2- Anoxic brain injury and CVA, s/p Trach 07/23, s/p PEG 3- HTN Uncontrolled continue meds on lopressor 4-Acute hypernatremia : resolved. cont free water with TF 5- DM2:stable . cont current regimen 6- nutrition :cont TF. at goal . free water . DVT Px: SCds DNR Daughter's name Carole. 5- DM :stable . cont current regimen 6- nutrition :cont TF. at goal . free water . DNR Daughter's name Carole.
[2015-11-17] MEDS: INSULIN DETEMIR 100 UNITS/ML MDV SQ SCH (21:47)
[2015-11-18] MEDS: INSULIN (NOVOLOG) ASPART 100 UNITS/ML 10ML VIAL SQ SCH ×4 (00:15→18:15)
[2015-11-18] MEDS: ALBUTEROL SO4 0.083% IH SOL 2.5 MG/3 ML VIAL.NEB. NEB SCH ×4 (06:00→18:15)
[2015-11-18] MEDS: PANTOPRAZOLE SOD 40 MG SUSPENSION PACKET GT SCH (11:11)
[2015-11-18] MEDS: amLODIPine BESYLATE 10 MG TABLET (FP) GT SCH (11:11)
[2015-11-18] MEDS: METOPROLOL TARTRATE 50 MG TABLET (FP) GT SCH ×2 (11:11→21:56)
[2015-11-18] MEDS: LACTOBACILLUS ACIDOPHILUS 1 EACH TAB (FP) PO SCH (11:12)
[2015-11-18] MEDS: AMINO ACIDS/PROTEIN HYDROLYS SUGAR-FREE 30 ML PACKET PO SCH ×2 (11:12→18:15)
[2015-11-18] MEDS: LISINOPRIL 20 MG TABLET (FP) GT SCH (11:12)
[2015-11-18] MEDS: MULTIVITAMINS THERAPEUTIC GT SCH (11:13)
--- NOTE | 2015-11-18 18:52 | PN ---
Progress Note (short form) - Note Progress Note: This patient is new to [place] 11/18/[facility],was admitted on 06/27/2015 from emergency room. Date of admission 06/27/2015 for GI bleed. Events noted. Patient is a 75 yo M with PMHx HTN, DM, inguinal hernia was admitted on 2014 for Bright red blood per rectum and melena with multiple syncopal episodes. Dxgnosed with persistent diverticular bleed s/p colonoscopy ,s/p R hemicolectomy due to GI bleed on 06/29/2015. Course was complicated with CVA. patient was in the ICU unresponsive with anoxic brain injury had tracheostomy on 07/23/2015 .and then transferred to floor. comfortable, no acute distress, no new events. Vital Signs Temperature 99.7 F H 11/18/15 15:17 Pulse Rate 93 H 11/18/15 15:17 Respiratory Rate 20 11/18/15 15:17 Blood Pressure 146/92 11/18/15 15:17 O2 Sat by Pulse Oximetry (%) 98 11/18/15 12:53 GENERAL: The patient has periods of somnolence, periods of wakefulness. HEAD: Normal with no signs of trauma. EYES: PERRLA, sclera anicteric, conjunctiva clear. ENT: positive for Trach collar, thin, white/sharma secretions. NECK: supple , no JVD, no masses. LUNGS: Coarse breath sounds. No wheezes, and no crackles. HEART: RRR, normal S1 and S2 without murmur, rub or gallop. ABDOMEN: Soft, NT, normoactive bowel sounds. NG,NR, No masses. EXTREMITIES: 2+ pulses, warm, well-perfused, no edema. NEUROLOGICAL: Unable to assess. SKIN: Wounds not visualized today CBCD WBC 9.4 K/mm3 (4.0-10.0) 11/13/15 07:15 RBC 3.43 M/mm3 (4.00-5.60) L 11/13/15 07:15 Hgb 10.0 GM/dL (11.7-16.9) L 11/13/15 07:15 Hct 29.7 % (35.4-49) L 11/13/15 07:15 MCV 86.4 fl (80-96) 11/13/15 07:15 MCHC 33.8 g/dl (32.0-35.9) 11/13/15 07:15 RDW 17.6 % (11.9-15.9) H 11/13/15 07:15 Plt Count 267 K/MM3 (134-434) 11/13/15 07:15 MPV 7.4 fl (7.5-11.1) L 11/13/15 07:15 CMP Sodium 144 mmol/L (136-145) 11/14/15 09:00 Potassium 3.7 mmol/L (3.5-5.1) 11/14/15 09:00 Chloride 107 mmol/L (98-107) 11/14/15 09:00 Carbon Dioxide 28 mmol/L (21-32) 11/14/15 09:00 Anion Gap 9 (8-16) 11/14/15 09:00 BUN 13 mg/dL (7-18) 11/14/15 09:00 Creatinine 0.5 mg/dL (0.7-1.3) L 11/14/15 09:00 Creat Clearance w eGFR > 60 (>60) 11/13/15 07:15 Random Glucose 186 mg/dL (74-106) H D 11/14/15 09:00 Calcium 9.7 mg/dL (8.5-10.1) 11/14/15 09:00 Total Bilirubin 0.2 mg/dL (0.2-1.0) 11/13/15 07:15 AST 14 U/L (15-37) L 11/13/15 07:15 ALT 17 U/L (12-78) 11/13/15 07:15 Alkaline Phosphatase 98 U/L (45-117) 11/13/15 07:15 Total Protein 7.3 g/dl (6.4-8.2) 11/13/15 07:15 Albumin 3.0 g/dl (3.4-5.0) L 11/13/15 07:15 CARDIAC ENZYMES Creatine Kinase 62 IU/L (38-174) 06/28/15 09:35 Troponin I 0.07 ng/ml (0.03-0.5) D 07/09/15 05:00 Current Medications Generic Name Dose Route Start Last Admin Trade Name Freq PRN Reason Stop Dose Admin Acetaminophen 650 mg 09/09/15 09:29 10/28/15 17:53 Tylenol Oral Solution - GT 650 mg Q6H PRN Administration FEVER Albuterol Sulfate 1 amp 11/09/15 18:00 11/18/15 18:15 Ventolin 0.083% Nebulizer Soln - NEB 1 amp QIDR KWAKU Administration Amino Acids 30 ml 09/15/15 17:30 11/18/15 18:15 Prostat Sugar-Free Packet - PO 30 ml BID@0800,1730 KWAKU Administration Amlodipine Besylate 10 mg 09/09/15 10:00 11/18/15 11:11 Norvasc - GT 10 mg DAILY KWAKU Administration Ibuprofen 200 mg 09/09/15 09:29 10/28/15 13:23 Motrin Oral Suspension - PO 200 mg Q6H PRN Administration FEVER Insulin Aspart 0 units 09/09/15 12:00 11/18/15 18:15 Novolog Vial SQ 2 units Q6HPO KWAKU Administration Protocol Insulin Detemir 28 units 09/09/15 22:00 11/17/15 21:47 Levemir Vial SQ 28 units HS KWAKU Administration Lactobacillus Acidophilus 1 tab 11/08/15 18:30 11/18/15 11:12 Bacid - PO 1 tab DAILY KWAKU Administration Lisinopril 40 mg 09/09/15 10:00 11/18/15 11:12 Prinivil - GT 40 mg DAILY KWAKU Administration Metoprolol Tartrate 5 mg 09/09/15 09:29 Lopressor Injection - IVPB Q6H PRN HYPERTENSION Metoprolol Tartrate 150 mg 11/16/15 21:12 11/18/15 11:11 Lopressor - GT 150 mg BID KWAKU Administration Multivitamins 5 ml 09/09/15 10:00 11/18/15 11:13 Thera-Plus - GT 5 ml DAILY KWAKU Administration Pantoprazole Sodium 40 mg 09/09/15 10:00 11/18/15 11:11 Protonix Packets For Oral Suspension - GT 40 mg DAILY KWAKU Administration 75 year old male with PMHx of HTN, IDDM, inguinal hernia who presented to the ED with diverticular bleed s/p right hemicolectomy with 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 75 year old male with PMHx of HTN, IDDM, inguinal hernia who presented to the ED with diverticular bleed s/p right hemicolectomy with 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 1-s/p Acute GI bleed, s/p colonoscopy and R hemicolectomy. no further bleed noted 2- Anoxic brain injury and CVA, s/p Trach 07/23, s/p PEG 3- HTN Uncontrolled continue meds on lopressor 4-Acute hypernatremia : resolved. cont free water with TF 5- DM2:stable . cont current regimen 6- nutrition :cont TF. at goal . free water . DVT Px: SCds DNR Daughter's name Carole. continue current treatment. Daughter's name Carole. continue current treatment. DVT Px: SCds DNR Daughter's name Carole. continue current treatment.
[2015-11-18] MEDS: INSULIN DETEMIR 100 UNITS/ML MDV SQ SCH (21:56)
[2015-11-19] MEDS: INSULIN (NOVOLOG) ASPART 100 UNITS/ML 10ML VIAL SQ SCH ×4 (00:08→18:48)
[2015-11-19] MEDS: METOPROLOL TARTRATE 50 MG TABLET (FP) GT SCH ×2 (09:10→21:49)
[2015-11-19] MEDS: AMINO ACIDS/PROTEIN HYDROLYS SUGAR-FREE 30 ML PACKET PO SCH ×2 (09:10→17:18)
[2015-11-19] MEDS: MULTIVITAMINS THERAPEUTIC GT SCH (12:10)
[2015-11-19] MEDS: LISINOPRIL 20 MG TABLET (FP) GT SCH (12:11)
[2015-11-19] MEDS: LACTOBACILLUS ACIDOPHILUS 1 EACH TAB (FP) PO SCH (12:11)
[2015-11-19] MEDS: amLODIPine BESYLATE 10 MG TABLET (FP) GT SCH (12:12)
[2015-11-19] MEDS: PANTOPRAZOLE SOD 40 MG SUSPENSION PACKET GT SCH (12:12)
--- NOTE | 2015-11-19 15:45 | PN ---
Progress Note (short form) - Note Progress Note: This patient is new [place] [facility] 11/18/[facility],was admitted on 06/27/2015. Date of admission 06/27/2015 for GI bleed. Events noted. Patient is a 75 yo M with PMHx HTN, DM, inguinal hernia was admitted on 2014 for Bright red blood per rectum and melena with multiple syncopal episodes. Dxgnosed with persistent diverticular bleed s/p colonoscopy ,s/p R hemicolectomy due to GI bleed on 06/29/2015. Course was complicated with CVA. patient was in the ICU unresponsive with anoxic brain injury had tracheostomy on 07/23/2015 .and then transferred to floor. No fever or chills, on trach. Vital Signs Temperature 98.5 F 11/19/15 14:27 Pulse Rate 82 11/19/15 14:27 Respiratory Rate 18 11/19/15 14:27 Blood Pressure 150/97 11/19/15 10:00 O2 Sat by Pulse Oximetry (%) 96 11/19/15 10:13 GENERAL: The patient has periods of somnolence, periods of wakefulness. . HEAD: Normal with no signs of trauma. EYES: PERRLA, sclera anicteric, conjunctiva clear. ENT: positive for Trach collar, thin, white/sharma secretions. NECK: supple , no JVD, no masses. LUNGS: Coarse breath sounds. No wheezes, and no crackles. HEART: RRR, normal S1 and S2 without murmur, rub or gallop. ABDOMEN: Soft, NT, normoactive bowel sounds. NG,NR, No masses. EXTREMITIES: 2+ pulses, warm, well-perfused, no edema. NEUROLOGICAL: Unable to assess. SKIN: Wounds not visualized today CBCD WBC 9.4 K/mm3 (4.0-10.0) 11/13/15 07:15 RBC 3.43 M/mm3 (4.00-5.60) L 11/13/15 07:15 Hgb 10.0 GM/dL (11.7-16.9) L 11/13/15 07:15 Hct 29.7 % (35.4-49) L 11/13/15 07:15 MCV 86.4 fl (80-96) 11/13/15 07:15 MCHC 33.8 g/dl (32.0-35.9) 11/13/15 07:15 RDW 17.6 % (11.9-15.9) H 11/13/15 07:15 Plt Count 267 K/MM3 (134-434) 11/13/15 07:15 MPV 7.4 fl (7.5-11.1) L 11/13/15 07:15 CMP Sodium 144 mmol/L (136-145) 11/14/15 09:00 Potassium 3.7 mmol/L (3.5-5.1) 11/14/15 09:00 Chloride 107 mmol/L (98-107) 11/14/15 09:00 Carbon Dioxide 28 mmol/L (21-32) 11/14/15 09:00 Anion Gap 9 (8-16) 11/14/15 09:00 BUN 13 mg/dL (7-18) 11/14/15 09:00 Creatinine 0.5 mg/dL (0.7-1.3) L 11/14/15 09:00 Creat Clearance w eGFR > 60 (>60) 11/13/15 07:15 Random Glucose 186 mg/dL (74-106) H D 11/14/15 09:00 Calcium 9.7 mg/dL (8.5-10.1) 11/14/15 09:00 Total Bilirubin 0.2 mg/dL (0.2-1.0) 11/13/15 07:15 AST 14 U/L (15-37) L 11/13/15 07:15 ALT 17 U/L (12-78) 11/13/15 07:15 Alkaline Phosphatase 98 U/L (45-117) 11/13/15 07:15 Total Protein 7.3 g/dl (6.4-8.2) 11/13/15 07:15 Albumin 3.0 g/dl (3.4-5.0) L 11/13/15 07:15 CARDIAC ENZYMES Creatine Kinase 62 IU/L (38-174) 06/28/15 09:35 Troponin I 0.07 ng/ml (0.03-0.5) D 07/09/15 05:00 Current Medications Generic Name Dose Route Start Last Admin Trade Name Freq PRN Reason Stop Dose Admin Acetaminophen 650 mg 09/09/15 09:29 10/28/15 17:53 Tylenol Oral Solution - GT 650 mg Q6H PRN Administration FEVER Amino Acids 30 ml 09/15/15 17:30 11/19/15 09:10 Prostat Sugar-Free Packet - PO 30 ml BID@0800,1730 KWAKU Administration Amlodipine Besylate 10 mg 09/09/15 10:00 11/19/15 12:12 Norvasc - GT 10 mg DAILY KWAKU Administration Ibuprofen 200 mg 09/09/15 09:29 10/28/15 13:23 Motrin Oral Suspension - PO 200 mg Q6H PRN Administration FEVER Insulin Aspart 0 units 09/09/15 12:00 11/19/15 12:21 Novolog Vial SQ 2 units Q6HPO KWAKU Administration Protocol Insulin Detemir 28 units 09/09/15 22:00 11/18/15 21:56 Levemir Vial SQ 28 units HS KWAKU Administration Lactobacillus Acidophilus 1 tab 11/08/15 18:30 11/19/15 12:11 Bacid - PO 1 tab DAILY KWAKU Administration Lisinopril 40 mg 09/09/15 10:00 11/19/15 12:11 Prinivil - GT 40 mg DAILY KWAKU Administration Metoprolol Tartrate 5 mg 09/09/15 09:29 Lopressor Injection - IVPB Q6H PRN HYPERTENSION Metoprolol Tartrate 150 mg 11/16/15 21:12 11/19/15 09:10 Lopressor - GT 150 mg BID KWAKU Administration Multivitamins 5 ml 09/09/15 10:00 11/19/15 12:10 Thera-Plus - GT 5 ml DAILY KWAKU Administration Pantoprazole Sodium 40 mg 09/09/15 10:00 11/19/15 12:12 Protonix Packets For Oral Suspension - GT 40 mg DAILY KWAKU Administration 75 year old male with PMHx of HTN, IDDM, inguinal hernia who presented to the ED with diverticular bleed s/p right hemicolectomy with 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 75 year old male with PMHx of HTN, IDDM, inguinal hernia who presented to the ED with diverticular bleed s/p right hemicolectomy with 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 1-s/p Acute GI bleed, s/p colonoscopy and R hemicolectomy. no further bleed noted 2- Anoxic brain injury and CVA, s/p Trach 07/23, s/p PEG 3- HTN Uncontrolled continue meds on lopressor 4-Acute hypernatremia : resolved. cont free water with TF 5- DM2:stable . cont current regimen 6- nutrition :cont TF. at goal . free water . DVT Px: SCds DNR Daughter's name Carole. 6- nutrition :cont TF. at goal . free water . DVT Px: SCds DNR Daughter's name Carole. 6- nutrition :cont TF. at goal . free water . DVT Px: SCds DNR Daughter's name Carole.
[2015-11-19] MEDS: INSULIN DETEMIR 100 UNITS/ML MDV SQ SCH (21:48)
[2015-11-20] MEDS: INSULIN (NOVOLOG) ASPART 100 UNITS/ML 10ML VIAL SQ SCH ×5 (00:15→23:56)
[2015-11-20] MEDS: AMINO ACIDS/PROTEIN HYDROLYS SUGAR-FREE 30 ML PACKET PO SCH ×2 (08:00→17:00)
[2015-11-20] MEDS: METOPROLOL TARTRATE 50 MG TABLET (FP) GT SCH ×2 (10:23→23:56)
[2015-11-20] MEDS: LACTOBACILLUS ACIDOPHILUS 1 EACH TAB (FP) PO SCH (10:23)
[2015-11-20] MEDS: PANTOPRAZOLE SOD 40 MG SUSPENSION PACKET GT SCH (10:24)
[2015-11-20] MEDS: MULTIVITAMINS THERAPEUTIC GT SCH (10:24)
[2015-11-20] MEDS: amLODIPine BESYLATE 10 MG TABLET (FP) GT SCH (10:24)
[2015-11-20] MEDS: LISINOPRIL 20 MG TABLET (FP) GT SCH (10:24)
--- NOTE | 2015-11-20 16:38 | PN ---
Progress Note (short form) - Note Progress Note: This patient is new to [facility] 11/18/2015,was admitted on 06/27/2015. Date of admission 06/27/2015 for GI bleed. Events noted. Patient is a 75 yo M with PMHx HTN, DM, inguinal hernia was admitted on 2014 for Bright red blood per rectum and melena with multiple syncopal episodes. Dxgnosed with persistent diverticular bleed s/p colonoscopy ,s/p R hemicolectomy due to GI bleed on 06/29/2015. Course was complicated with CVA. patient was in the ICU unresponsive with anoxic brain injury had tracheostomy on 07/23/2015 .and then transferred to floor. Comfortable, no acute distress, positive for trach. Vital Signs Temperature 98.4 F 11/20/15 14:49 Pulse Rate 88 11/20/15 14:49 Respiratory Rate 22 11/20/15 14:49 Blood Pressure 143/91 11/20/15 10:00 O2 Sat by Pulse Oximetry (%) 98 11/20/15 09:00 GENERAL: The patient has periods of somnolence, periods of wakefulness. HEAD: Normal with no signs of trauma. EYES: PERRLA, sclera anicteric, conjunctiva clear. ENT: positive for Trach collar, thin, white/sharma secretions. NECK: supple , no JVD, no masses. LUNGS: Coarse breath sounds. No wheezes, and no crackles. HEART: RRR, normal S1 and S2 without murmur, rub or gallop. ABDOMEN: Soft, NT, normoactive bowel sounds. NG,NR, No masses. EXTREMITIES: 2+ pulses, warm, well-perfused, no edema. NEUROLOGICAL: Unable to assess. SKIN: Wounds not visualized today CBCD WBC 9.4 K/mm3 (4.0-10.0) 11/13/15 07:15 RBC 3.43 M/mm3 (4.00-5.60) L 11/13/15 07:15 Hgb 10.0 GM/dL (11.7-16.9) L 11/13/15 07:15 Hct 29.7 % (35.4-49) L 11/13/15 07:15 MCV 86.4 fl (80-96) 11/13/15 07:15 MCHC 33.8 g/dl (32.0-35.9) 11/13/15 07:15 RDW 17.6 % (11.9-15.9) H 11/13/15 07:15 Plt Count 267 K/MM3 (134-434) 11/13/15 07:15 MPV 7.4 fl (7.5-11.1) L 11/13/15 07:15 CMP Sodium 144 mmol/L (136-145) 11/14/15 09:00 Potassium 3.7 mmol/L (3.5-5.1) 11/14/15 09:00 Chloride 107 mmol/L (98-107) 11/14/15 09:00 Carbon Dioxide 28 mmol/L (21-32) 11/14/15 09:00 Anion Gap 9 (8-16) 11/14/15 09:00 BUN 13 mg/dL (7-18) 11/14/15 09:00 Creatinine 0.5 mg/dL (0.7-1.3) L 11/14/15 09:00 Creat Clearance w eGFR > 60 (>60) 11/13/15 07:15 Random Glucose 186 mg/dL (74-106) H D 11/14/15 09:00 Calcium 9.7 mg/dL (8.5-10.1) 11/14/15 09:00 Total Bilirubin 0.2 mg/dL (0.2-1.0) 11/13/15 07:15 AST 14 U/L (15-37) L 11/13/15 07:15 ALT 17 U/L (12-78) 11/13/15 07:15 Alkaline Phosphatase 98 U/L (45-117) 11/13/15 07:15 Total Protein 7.3 g/dl (6.4-8.2) 11/13/15 07:15 Albumin 3.0 g/dl (3.4-5.0) L 11/13/15 07:15 CARDIAC ENZYMES Creatine Kinase 62 IU/L (38-174) 06/28/15 09:35 Troponin I 0.07 ng/ml (0.03-0.5) D 07/09/15 05:00 Current Medications Generic Name Dose Route Start Last Admin Trade Name Freq PRN Reason Stop Dose Admin Acetaminophen 650 mg 09/09/15 09:29 10/28/15 17:53 Tylenol Oral Solution - GT 650 mg Q6H PRN Administration FEVER Amino Acids 30 ml 09/15/15 17:30 11/20/15 08:00 Prostat Sugar-Free Packet - PO 30 ml BID@0800,1730 KWAKU Administration Amlodipine Besylate 10 mg 09/09/15 10:00 11/20/15 10:24 Norvasc - GT 10 mg DAILY KWAKU Administration Ibuprofen 200 mg 09/09/15 09:29 10/28/15 13:23 Motrin Oral Suspension - PO 200 mg Q6H PRN Administration FEVER Insulin Aspart 0 units 09/09/15 12:00 11/20/15 12:05 Novolog Vial SQ 2 units Q6HPO KWAKU Administration Protocol Insulin Detemir 28 units 09/09/15 22:00 11/19/15 21:48 Levemir Vial SQ 28 units HS KWAKU Administration Lactobacillus Acidophilus 1 tab 11/08/15 18:30 11/20/15 10:23 Bacid - PO 1 tab DAILY KWAKU Administration Lisinopril 40 mg 09/09/15 10:00 11/20/15 10:24 Prinivil - GT 40 mg DAILY KWAKU Administration Metoprolol Tartrate 5 mg 09/09/15 09:29 Lopressor Injection - IVPB Q6H PRN HYPERTENSION Metoprolol Tartrate 150 mg 11/16/15 21:12 11/20/15 10:23 Lopressor - GT 150 mg BID KWAKU Administration Multivitamins 5 ml 09/09/15 10:00 11/20/15 10:24 Thera-Plus - GT 5 ml DAILY KWAKU Administration Pantoprazole Sodium 40 mg 09/09/15 10:00 11/20/15 10:24 Protonix Packets For Oral Suspension - GT 40 mg DAILY KWAKU Administration 75 year old male with PMHx of HTN, IDDM, inguinal hernia who presented to the ED with diverticular bleed s/p right hemicolectomy with 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 1-s/p Acute GI bleed, s/p colonoscopy and R hemicolectomy. no further bleed noted 2- Anoxic brain injury and CVA, s/p Trach 07/23, s/p PEG 3- HTN Uncontrolled continue meds on lopressor 4-Acute hypernatremia : resolved. cont free water with TF 5- DM2:stable . cont current regimen 6- nutrition :cont TF. at goal . free water . DVT Px: SCds DNR Daughter's name Carole.
[2015-11-20] MEDS: INSULIN DETEMIR 100 UNITS/ML MDV SQ SCH (23:55)
[2015-11-21] MEDS: INSULIN (NOVOLOG) ASPART 100 UNITS/ML 10ML VIAL SQ SCH ×4 (06:44→23:09)
[2015-11-21] MEDS: AMINO ACIDS/PROTEIN HYDROLYS SUGAR-FREE 30 ML PACKET PO SCH ×2 (09:00→23:00)
[2015-11-21] MEDS: MULTIVITAMINS THERAPEUTIC GT SCH (10:41)
[2015-11-21] MEDS: METOPROLOL TARTRATE 50 MG TABLET (FP) GT SCH ×2 (10:41→23:00)
[2015-11-21] MEDS: LACTOBACILLUS ACIDOPHILUS 1 EACH TAB (FP) PO SCH (10:42)
[2015-11-21] MEDS: amLODIPine BESYLATE 10 MG TABLET (FP) GT SCH (10:42)
[2015-11-21] MEDS: PANTOPRAZOLE SOD 40 MG SUSPENSION PACKET GT SCH (10:42)
[2015-11-21] MEDS: LISINOPRIL 20 MG TABLET (FP) GT SCH (10:42)
--- NOTE | 2015-11-21 19:42 | PN ---
Progress Note (short form) - Note Progress Note: Subjective: . no events last night Objective: Last Vital Signs Temp Pulse Resp BP Pulse Ox 98.3 F 85 20 146/83 97 11/21/15 16:50 11/21/15 16:50 11/21/15 16:50 11/21/15 16:50 11/21/15 11:29 Physical Exam: NAD, trached .spontaneous head movements . CV: RRR, no MRG lungs:CTAB anteriorly ext: no edema on legs. L heal bruise abd: soft, NT, ND , nl BS PEG Laboratory Results - last 24 hr 11/20/15 11/20/15 11/21/15 19:58 23:50 06:04 POC Glucometer 137 205 160 11/21/15 11/21/15 12:19 17:49 POC Glucometer 156 147 Current Medications Generic Name Dose Route Start Last Admin Trade Name Freq PRN Reason Stop Dose Admin Acetaminophen 650 mg 09/09/15 09:29 10/28/15 17:53 Tylenol Oral Solution - GT 650 mg Q6H PRN Administration FEVER Amino Acids 30 ml 09/15/15 17:30 11/21/15 09:00 Prostat Sugar-Free Packet - PO 30 ml BID@0800,1730 KWAKU Administration Amlodipine Besylate 10 mg 09/09/15 10:00 11/21/15 10:42 Norvasc - GT 10 mg DAILY KWAKU Administration Ibuprofen 200 mg 09/09/15 09:29 10/28/15 13:23 Motrin Oral Suspension - PO 200 mg Q6H PRN Administration FEVER Insulin Aspart 0 units 09/09/15 12:00 11/21/15 17:49 Novolog Vial SQ Not Given Q6HPO [facility] Protocol Insulin Detemir 28 units 09/09/15 22:00 11/20/15 23:55 Levemir Vial SQ 28 units HS KWAKU Administration Lactobacillus Acidophilus 1 tab 11/08/15 18:30 11/21/15 10:42 Bacid - PO 1 tab DAILY KWAKU Administration Lisinopril 40 mg 09/09/15 10:00 11/21/15 10:42 Prinivil - GT 40 mg DAILY KWAKU Administration Metoprolol Tartrate 5 mg 09/09/15 09:29 Lopressor Injection - IVPB Q6H PRN HYPERTENSION Metoprolol Tartrate 150 mg 11/16/15 21:12 11/21/15 10:41 Lopressor - GT 150 mg BID KWAKU Administration Multivitamins 5 ml 09/09/15 10:00 11/21/15 10:41 Thera-Plus - GT 5 ml DAILY KWAKU Administration Pantoprazole Sodium 40 mg 09/09/15 10:00 11/21/15 10:42 Protonix Packets For Oral Suspension - GT 40 mg DAILY KWAKU Administration Assessment/Plan: 5 yo M with PMH HTN, DM, inguinal hernia a/w BRBPR and melena with multiple syncopal episodes. Dx with persistent diverticular bleed with R hemicolectomy, course complicated with CVA now in the ICU unresponsive and anoxic brain injury had tracheostomy on 07/23. also s/p PEG placement and iliac artery bleed s /p embolization 09/03/15. 1-acute GI bleed, s/p colonoscopy and R hemicolectomy. no further bleed 2- Anoxic brain injury and CVA, s/p Trach 07/23. s/p PEG 3- HTN : cont meds . better controlled 4- DM : cont insulin 5- nutrition through PEG DNR
[2015-11-21] MEDS: INSULIN DETEMIR 100 UNITS/ML MDV SQ SCH (23:00)
[2015-11-22] MEDS: INSULIN (NOVOLOG) ASPART 100 UNITS/ML 10ML VIAL SQ SCH ×4 (06:22→23:39)
[2015-11-22] MEDS: AMINO ACIDS/PROTEIN HYDROLYS SUGAR-FREE 30 ML PACKET PO SCH ×2 (09:32→17:56)
[2015-11-22] MEDS: METOPROLOL TARTRATE 50 MG TABLET (FP) GT SCH ×2 (09:57→22:04)
[2015-11-22] MEDS: LISINOPRIL 20 MG TABLET (FP) GT SCH (09:57)
[2015-11-22] MEDS: LACTOBACILLUS ACIDOPHILUS 1 EACH TAB (FP) PO SCH (09:57)
[2015-11-22] MEDS: PANTOPRAZOLE SOD 40 MG SUSPENSION PACKET GT SCH (09:57)
[2015-11-22] MEDS: MULTIVITAMINS THERAPEUTIC GT SCH (09:57)
[2015-11-22] MEDS: amLODIPine BESYLATE 10 MG TABLET (FP) GT SCH (09:58)
--- NOTE | 2015-11-22 16:58 | PN ---
Progress Note (short form) - Note Progress Note: This patient is new to [facility] 11/18/2015,was admitted on 06/27/2015. Date of admission 06/27/2015 for GI bleed. Events noted. Patient is a 75 yo M with PMHx HTN, DM, inguinal hernia was admitted on 2014 for Bright red blood per rectum and melena with multiple syncopal episodes. Dxgnosed with persistent diverticular bleed s/p colonoscopy ,s/p R hemicolectomy due to GI bleed on 06/29/2015. Course was complicated with CVA. patient was in the ICU unresponsive with anoxic brain injury had tracheostomy on 07/23/2015 .and then transferred to floor. No new events noted. Vital Signs Temperature 98.4 F 11/22/15 14:32 Pulse Rate 84 11/22/15 14:32 Respiratory Rate 22 11/22/15 14:32 Blood Pressure 150/96 11/22/15 10:00 O2 Sat by Pulse Oximetry (%) 98 11/22/15 10:03 GENERAL: The patient has periods of somnolence, periods of wakefulness. No vocalization, no grimacing. No indication of pain. HEAD: Normal with no signs of trauma. EYES: PERRLA, sclera anicteric, conjunctiva clear. ENT: positive for Trach collar, thin, white/sharma secretions. NECK: supple , no JVD, no masses. LUNGS: Coarse breath sounds. No wheezes, and no crackles. HEART: RRR, normal S1 and S2 without murmur, rub or gallop. ABDOMEN: Soft, NT, normoactive bowel sounds. NG,NR, No masses. EXTREMITIES: 2+ pulses, warm, well-perfused, no edema. NEUROLOGICAL: Unable to assess. SKIN: Wounds not visualized today. CBCD WBC 9.4 K/mm3 (4.0-10.0) 11/13/15 07:15 RBC 3.43 M/mm3 (4.00-5.60) L 11/13/15 07:15 Hgb 10.0 GM/dL (11.7-16.9) L 11/13/15 07:15 Hct 29.7 % (35.4-49) L 11/13/15 07:15 MCV 86.4 fl (80-96) 11/13/15 07:15 MCHC 33.8 g/dl (32.0-35.9) 11/13/15 07:15 RDW 17.6 % (11.9-15.9) H 11/13/15 07:15 Plt Count 267 K/MM3 (134-434) 11/13/15 07:15 MPV 7.4 fl (7.5-11.1) L 11/13/15 07:15 CMP Sodium 144 mmol/L (136-145) 11/14/15 09:00 Potassium 3.7 mmol/L (3.5-5.1) 11/14/15 09:00 Chloride 107 mmol/L (98-107) 11/14/15 09:00 Carbon Dioxide 28 mmol/L (21-32) 11/14/15 09:00 Anion Gap 9 (8-16) 11/14/15 09:00 BUN 13 mg/dL (7-18) 11/14/15 09:00 Creatinine 0.5 mg/dL (0.7-1.3) L 11/14/15 09:00 Creat Clearance w eGFR > 60 (>60) 11/13/15 07:15 Random Glucose 186 mg/dL (74-106) H D 11/14/15 09:00 Calcium 9.7 mg/dL (8.5-10.1) 11/14/15 09:00 Total Bilirubin 0.2 mg/dL (0.2-1.0) 11/13/15 07:15 AST 14 U/L (15-37) L 11/13/15 07:15 ALT 17 U/L (12-78) 11/13/15 07:15 Alkaline Phosphatase 98 U/L (45-117) 11/13/15 07:15 Total Protein 7.3 g/dl (6.4-8.2) 11/13/15 07:15 Albumin 3.0 g/dl (3.4-5.0) L 11/13/15 07:15 CARDIAC ENZYMES Creatine Kinase 62 IU/L (38-174) 06/28/15 09:35 Troponin I 0.07 ng/ml (0.03-0.5) D 07/09/15 05:00 Current Medications Generic Name Dose Route Start Last Admin Trade Name Freq PRN Reason Stop Dose Admin Acetaminophen 650 mg 09/09/15 09:29 10/28/15 17:53 Tylenol Oral Solution - GT 650 mg Q6H PRN Administration FEVER Amino Acids 30 ml 09/15/15 17:30 11/22/15 09:32 Prostat Sugar-Free Packet - PO 30 ml BID@0800,1730 KWAKU Administration Amlodipine Besylate 10 mg 09/09/15 10:00 11/22/15 09:58 Norvasc - GT 10 mg DAILY KWAKU Administration Ibuprofen 200 mg 09/09/15 09:29 10/28/15 13:23 Motrin Oral Suspension - PO 200 mg Q6H PRN Administration FEVER Insulin Aspart 0 units 09/09/15 12:00 11/22/15 12:56 Novolog Vial SQ Not Given Q6HPO [facility] Protocol Insulin Detemir 28 units 09/09/15 22:00 11/21/15 23:00 Levemir Vial SQ 28 units HS KWAKU Administration Lactobacillus Acidophilus 1 tab 11/08/15 18:30 11/22/15 09:57 Bacid - PO 1 tab DAILY KWAKU Administration Lisinopril 40 mg 09/09/15 10:00 11/22/15 09:57 Prinivil - GT 40 mg DAILY KWAKU Administration Metoprolol Tartrate 5 mg 09/09/15 09:29 Lopressor Injection - IVPB Q6H PRN HYPERTENSION Metoprolol Tartrate 150 mg 11/16/15 21:12 11/22/15 09:57 Lopressor - GT 150 mg BID KWAKU Administration Multivitamins 5 ml 09/09/15 10:00 11/22/15 09:57 Thera-Plus - GT 5 ml DAILY KWAKU Administration Pantoprazole Sodium 40 mg 09/09/15 10:00 11/22/15 09:57 Protonix Packets For Oral Suspension - GT 40 mg DAILY KWAKU Administration 75 year old male with PMHx of HTN, IDDM, inguinal hernia who presented to the ED with diverticular bleed s/p right hemicolectomy with 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 1-s/p Acute GI bleed, s/p colonoscopy and R hemicolectomy. no further bleed noted 2- Anoxic brain injury and CVA, s/p Trach 07/23, s/p PEG 3- HTN Uncontrolled continue meds on lopressor 4-Acute hypernatremia : resolved. cont free water with TF 5- DM2:stable . cont current regimen 6- nutrition :cont TF. at goal . free water . DVT Px: SCds DNR Daughter's name Carole. will order some labs for am.
[2015-11-22 18:26] LABS: BASOPHIL 0.8 % (0-2.0); EOSINOPHIL 3.7 % (0-4.5); MEAN CELL VOLUME 87.6 fl (80-96); MEAN PLT VOLUME 8.8 fl (7.5-11.1); NEUTROPHILS 68.1 % (42.8-82.8); PLATELET COUNT 228 K/MM3 (134-434); RDW 17.4 % (11.9-15.9); WHITE BLOOD COUNT 9.2 K/mm3 (4.0-10.0)
[2015-11-22] MEDS: INSULIN DETEMIR 100 UNITS/ML MDV SQ SCH (22:03)
[2015-11-23] MEDS: INSULIN (NOVOLOG) ASPART 100 UNITS/ML 10ML VIAL SQ SCH ×4 (06:17→23:31)
[2015-11-23 08:35] LABS: CALCIUM 9.8 mg/dL (8.5-10.1); MAGNESIUM 1.9 mg/dL (1.8-2.4)
[2015-11-23 08:38] LABS: CREATININE 0.7 mg/dL (0.7-1.3); PHOSPHOROUS 3.6 mg/dL (2.5-4.9)
[2015-11-23] MEDS: LACTOBACILLUS ACIDOPHILUS 1 EACH TAB (FP) PO SCH (10:50)
[2015-11-23] MEDS: LISINOPRIL 20 MG TABLET (FP) GT SCH (10:50)
[2015-11-23] MEDS: METOPROLOL TARTRATE 50 MG TABLET (FP) GT SCH ×2 (10:50→23:30)
[2015-11-23] MEDS: PANTOPRAZOLE SOD 40 MG SUSPENSION PACKET GT SCH (10:50)
[2015-11-23] MEDS: AMINO ACIDS/PROTEIN HYDROLYS SUGAR-FREE 30 ML PACKET PO SCH ×2 (10:50→19:13)
[2015-11-23] MEDS: amLODIPine BESYLATE 10 MG TABLET (FP) GT SCH (10:50)
[2015-11-23] MEDS: MULTIVITAMINS THERAPEUTIC GT SCH (10:50)
--- NOTE | 2015-11-23 17:04 | PN ---
Progress Note (short form) - Note Progress Note: Vital Signs This patient is new to [place] 11/18/2015,was admitted on 06/27/2015. Date of admission 06/27/2015 for GI bleed. Events noted. Patient is a 75 yo M with PMHx HTN, DM, inguinal hernia was admitted on 2014 for Bright red blood per rectum and melena with multiple syncopal episodes. Dxgnosed with persistent diverticular bleed s/p colonoscopy ,s/p R hemicolectomy due to GI bleed on 06/29/2015. Course was complicated with CVA. patient was in the ICU unresponsive with anoxic brain injury had tracheostomy on 07/23/2015 .and then transferred to floor. No new event noted. Temperature 98.9 F 11/23/15 10:00 Pulse Rate 88 11/23/15 11:10 Respiratory Rate 20 11/23/15 10:00 Blood Pressure 152/87 11/23/15 10:00 O2 Sat by Pulse Oximetry (%) 97 11/23/15 11:10 GENERAL: The patient has periods of somnolence, periods of wakefulness. No vocalization, no grimacing. No indication of pain. HEAD: Normal with no signs of trauma. EYES: PERRLA, sclera anicteric, conjunctiva clear. ENT: positive for Trach collar, thin, white/sharma secretions. NECK: supple , no JVD, no masses. LUNGS: Coarse breath sounds. No wheezes, and no crackles. HEART: RRR, normal S1 and S2 without murmur, rub or gallop. ABDOMEN: Soft, NT, normoactive bowel sounds. NG,NR, No masses. EXTREMITIES: 2+ pulses, warm, well-perfused, no edema. NEUROLOGICAL: Unable to assess. SKIN: Wounds not visualized today. CBCD WBC 9.2 K/mm3 (4.0-10.0) 11/22/15 17:15 RBC 3.65 M/mm3 (4.00-5.60) L 11/22/15 17:15 Hgb 10.2 GM/dL (11.7-16.9) L 11/22/15 17:15 Hct 32.0 % (35.4-49) L 11/22/15 17:15 MCV 87.6 fl (80-96) 11/22/15 17:15 MCHC 32.0 g/dl (32.0-35.9) 11/22/15 17:15 RDW 17.4 % (11.9-15.9) H 11/22/15 17:15 Plt Count 228 K/MM3 (134-434) 11/22/15 17:15 MPV 8.8 fl (7.5-11.1) D 11/22/15 17:15 CMP Sodium 143 mmol/L (136-145) 11/23/15 06:45 Potassium 3.6 mmol/L (3.5-5.1) 11/23/15 06:45 Chloride 102 mmol/L (98-107) 11/23/15 06:45 Carbon Dioxide 32 mmol/L (21-32) 11/23/15 06:45 Anion Gap 9 (8-16) 11/23/15 06:45 BUN 24 mg/dL (7-18) H D 11/23/15 06:45 Creatinine 0.7 mg/dL (0.7-1.3) D 11/23/15 06:45 Creat Clearance w eGFR > 60 (>60) 11/13/15 07:15 Random Glucose 163 mg/dL (74-106) H 11/23/15 06:45 Calcium 9.8 mg/dL (8.5-10.1) 11/23/15 06:45 Total Bilirubin 0.2 mg/dL (0.2-1.0) 11/13/15 07:15 AST 14 U/L (15-37) L 11/13/15 07:15 ALT 17 U/L (12-78) 11/13/15 07:15 Alkaline Phosphatase 98 U/L (45-117) 11/13/15 07:15 Total Protein 7.3 g/dl (6.4-8.2) 11/13/15 07:15 Albumin 3.0 g/dl (3.4-5.0) L 11/13/15 07:15 CARDIAC ENZYMES Creatine Kinase 62 IU/L (38-174) 06/28/15 09:35 Troponin I 0.07 ng/ml (0.03-0.5) D 07/09/15 05:00 Current Medications Generic Name Dose Route Start Last Admin Trade Name Freq PRN Reason Stop Dose Admin Acetaminophen 650 mg 09/09/15 09:29 12/31/15 17:53 Tylenol Oral Solution - GT 650 mg Q6H PRN Administration FEVER Amino Acids 30 ml 09/15/15 17:30 11/23/15 10:50 Prostat Sugar-Free Packet - PO 30 ml BID@0800,1730 [facility] Administration Amlodipine Besylate 10 mg 09/09/15 10:00 11/23/15 10:50 Norvasc - GT 10 mg DAILY [facility] Administration Ibuprofen 200 mg 09/09/15 09:29 10/28/15 13:23 Motrin Oral Suspension - PO 200 mg Q6H PRN Administration FEVER Insulin Aspart 0 units 09/09/15 12:00 11/23/15 12:59 Novolog Vial SQ 2 units Q6HPO [facility] Administration Protocol Insulin Detemir 28 units 09/09/15 22:00 11/22/15 22:03 Levemir Vial SQ 28 units HS [facility] Administration Lactobacillus Acidophilus 1 tab 11/08/15 18:30 11/23/15 10:50 Bacid - PO 1 tab DAILY [facility] Administration Lisinopril 40 mg 09/09/15 10:00 11/23/15 10:50 Prinivil - GT 40 mg DAILY [facility] Administration Metoprolol Tartrate 5 mg 09/09/15 09:29 Lopressor Injection - IVPB Q6H PRN HYPERTENSION Metoprolol Tartrate 150 mg 11/16/15 21:12 11/23/15 10:50 Lopressor - GT 150 mg BID [facility] Administration Multivitamins 5 ml 09/09/15 10:00 11/23/15 10:50 Thera-Plus - GT 5 ml DAILY [facility] Administration Pantoprazole Sodium 40 mg 09/09/15 10:00 11/23/15 10:50 Protonix Packets For Oral Suspension - GT 40 mg DAILY [facility] Administration 75 year old male with PMHx of HTN, IDDM, inguinal hernia who presented to the ED with diverticular bleed s/p right hemicolectomy with 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 1-s/p Acute GI bleed, s/p colonoscopy and R hemicolectomy. no further bleed noted 2- Anoxic brain injury and CVA, s/p Trach 9/25, s/p PEG 3- HTN Uncontrolled continue meds on lopressor 4-Acute hypernatremia : resolved. cont free water with TF 5- DM2:stable . cont current regimen 6- nutrition :cont TF. at goal . free water . DVT Px: SCds DNR Daughter's name Carole. weekly labs.
[2015-11-23] MEDS: INSULIN DETEMIR 100 UNITS/ML MDV SQ SCH (23:30)
[2015-11-24] MEDS: INSULIN (NOVOLOG) ASPART 100 UNITS/ML 10ML VIAL SQ SCH ×4 (06:24→23:44)
[2015-11-24] MEDS: LISINOPRIL 20 MG TABLET (FP) GT SCH (09:54)
[2015-11-24] MEDS: PANTOPRAZOLE SOD 40 MG SUSPENSION PACKET GT SCH (09:54)
[2015-11-24] MEDS: MULTIVITAMINS THERAPEUTIC GT SCH (09:54)
[2015-11-24] MEDS: AMINO ACIDS/PROTEIN HYDROLYS SUGAR-FREE 30 ML PACKET PO SCH ×2 (09:55→17:11)
[2015-11-24] MEDS: METOPROLOL TARTRATE 50 MG TABLET (FP) GT SCH ×2 (09:55→21:50)
[2015-11-24] MEDS: amLODIPine BESYLATE 10 MG TABLET (FP) GT SCH (09:55)
[2015-11-24] MEDS: LACTOBACILLUS ACIDOPHILUS 1 EACH TAB (FP) PO SCH (09:55)
--- NOTE | 2015-11-24 21:20 | PN ---
Progress Note (short form) - Note Progress Note: Subjective: . no events last night Objective: Last Vital Signs Temp Pulse Resp BP Pulse Ox 99.4 F 98 H 20 142/83 96 11/24/15 18:24 11/24/15 18:24 11/24/15 18:24 11/24/15 18:24 11/24/15 10:08 Physical Exam: NAD, trached .spontaneous head movements . mucus secretions at trach CV: RRR, no MRG lungs:CTAB anteriorly ext: no edema on legs. L heal bruise abd: soft, NT, ND , nl BS PEG Assessment/Plan: 5 yo M with PMH HTN, DM, inguinal hernia a/w BRBPR and melena with multiple syncopal episodes. Dx with persistent diverticular bleed with R hemicolectomy, course complicated with CVA now in the ICU unresponsive and anoxic brain injury had tracheostomy on 07/23. also s/p PEG placement and iliac artery bleed s /p embolization 09/03/15. 1-acute GI bleed, s/p colonoscopy and R hemicolectomy. no further bleed 2- Anoxic brain injury and CVA, s/p Trach 07/23. s/p PEG check Cxray as he has increased secretions from trach 3- HTN : cont meds . better controlled 4- DM : cont insulin 5- nutrition through PEG DNR
[2015-11-24] MEDS: INSULIN DETEMIR 100 UNITS/ML MDV SQ SCH (21:50)
[2015-11-25] MEDS: INSULIN (NOVOLOG) ASPART 100 UNITS/ML 10ML VIAL SQ SCH ×3 (05:51→17:58)
[2015-11-25] MEDS: AMINO ACIDS/PROTEIN HYDROLYS SUGAR-FREE 30 ML PACKET PO SCH ×2 (08:50→17:59)
[2015-11-25] MEDS: amLODIPine BESYLATE 10 MG TABLET (FP) GT SCH (10:28)
[2015-11-25] MEDS: LISINOPRIL 20 MG TABLET (FP) GT SCH (10:28)
[2015-11-25] MEDS: METOPROLOL TARTRATE 50 MG TABLET (FP) GT SCH ×2 (10:29→23:21)
[2015-11-25] MEDS: PANTOPRAZOLE SOD 40 MG SUSPENSION PACKET GT SCH (10:29)
[2015-11-25] MEDS: LACTOBACILLUS ACIDOPHILUS 1 EACH TAB (FP) PO SCH (10:29)
[2015-11-25] MEDS: MULTIVITAMINS THERAPEUTIC GT SCH (10:29)
--- NOTE | 2015-11-25 20:26 | PN ---
Progress Note (short form) - Note Progress Note: Subjective: . no events last night . increased yellowish secretions Objective: Last Vital Signs Temp Pulse Resp BP Pulse Ox 100 F H 100 H 24 133/82 98 11/25/15 10:11/25/15 10:11/25/15 10:11/25/15 10:11/25/15 11:00 Physical Exam: NAD, trached .spontaneous head movements . mucus secretions at trach CV: RRR, no MRG lungs:CTAB anteriorly ext: no edema on legs. L heal bruise abd: soft, NT, ND , nl BS PEG Assessment/Plan: 5 yo M with PMH HTN, DM, inguinal hernia a/w BRBPR and melena with multiple syncopal episodes. Dx with persistent diverticular bleed with R hemicolectomy, course complicated with CVA now in the ICU unresponsive and anoxic brain injury had tracheostomy on 07/23. also s/p PEG placement and iliac artery bleed s /p embolization 09/03/15. 1-acute GI bleed, s/p colonoscopy and R hemicolectomy. no further bleed 2- fever , increased secretions ( yellow ) , cxray with possible retrocardiac infiltrate .: will start vanc and zosyn . will contact Dr. Fragoso for approval of treatment for HAP 3- Anoxic brain injury and CVA, s/p Trach 07/23. s/p PEG 3- HTN : cont meds . better controlled 4- DM : cont insulin 5- nutrition through PEG DNR
[2015-11-25] MEDS: INSULIN DETEMIR 100 UNITS/ML MDV SQ SCH (23:26)
[2015-11-26] MEDS: INSULIN (NOVOLOG) ASPART 100 UNITS/ML 10ML VIAL SQ SCH ×4 (01:31→17:43)
[2015-11-26] MEDS: PIPERACILLIN/TAZOB 3.375 GM 3.375 GM in DEXTROSE 5%-WATER - 50 ML IVPB SCH ×6 (03:44→21:47)
[2015-11-26] MEDS: VANCOMYCIN 1,000 MG in DEXTROSE 5%-WATER - 250 ML IVPB SCH ×4 (03:45→17:24)
[2015-11-26 07:25] LABS: BASOPHIL 0.6 % (0-2.0); EOSINOPHIL 5.3 % (0-4.5); MCH 28.6 pg (25.7-33.7); MCHC 33.1 g/dl (32.0-35.9); MEAN CELL VOLUME 86.4 fl (80-96); MEAN PLT VOLUME 8.3 fl (7.5-11.1); NEUTROPHILS 63.6 % (42.8-82.8); PLATELET COUNT 194 K/MM3 (134-434); RDW 17.2 % (11.9-15.9); WHITE BLOOD COUNT 7.1 K/mm3 (4.0-10.0)
[2015-11-26] MEDS: AMINO ACIDS/PROTEIN HYDROLYS SUGAR-FREE 30 ML PACKET PO SCH ×2 (09:03→17:45)
[2015-11-26] MEDS: LACTOBACILLUS ACIDOPHILUS 1 EACH TAB (FP) PO SCH (09:04)
[2015-11-26] MEDS: PANTOPRAZOLE SOD 40 MG SUSPENSION PACKET GT SCH (09:04)
[2015-11-26] MEDS: METOPROLOL TARTRATE 50 MG TABLET (FP) GT SCH ×2 (09:04→21:51)
[2015-11-26] MEDS: LISINOPRIL 20 MG TABLET (FP) GT SCH (09:04)
[2015-11-26] MEDS: amLODIPine BESYLATE 10 MG TABLET (FP) GT SCH (09:05)
[2015-11-26] MEDS: MULTIVITAMINS THERAPEUTIC GT SCH (12:48)
--- NOTE | 2015-11-26 15:29 | PN ---
Progress Note (short form) - Note Progress Note: Subjective: Pt seen and examined at bedside. Passive ROM provided. 24 hour events: tmax 99.1 Current Medications Generic Name Dose Route Start Last Admin Trade Name Freq PRN Reason Stop Dose Admin Acetaminophen 650 mg 09/09/15 09:29 10/28/15 17:53 Tylenol Oral Solution - GT 650 mg Q6H PRN Administration FEVER Amino Acids 30 ml 09/15/15 17:30 11/26/15 09:03 Prostat Sugar-Free Packet - PO 30 ml BID@0800,1730 [facility] Administration Amlodipine Besylate 10 mg 09/09/15 10:00 11/26/15 09:05 Norvasc - GT 10 mg DAILY [facility] Administration Piperacillin Sod/Tazobactam 50 mls @ 100 mls/hr 11/25/15 21:45 11/26/15 10:41 Sod 3.375 gm/ Dextrose IVPB 100 mls/hr Q6H-IV [facility] Administration Vancomycin HCl 1,000 mg/ 250 mls @ 166.667 mls/hr 11/26/15 16:30 Dextrose IVPB Q12H [facility] Ibuprofen 200 mg 09/09/15 09:29 10/28/15 13:23 Motrin Oral Suspension - PO 200 mg Q6H PRN Administration FEVER Insulin Aspart 0 units 09/09/15 12:00 11/26/15 12:48 Novolog Vial SQ Not Given Q6HPO ON LICENSE OF [facility] Protocol Insulin Detemir 28 units 09/09/15 22:00 11/25/15 23:26 Levemir Vial SQ 28 units HS [facility] Administration Lactobacillus Acidophilus 1 tab 11/08/15 18:30 11/26/15 09:04 Bacid - PO 1 tab DAILY [facility] Administration Lisinopril 40 mg 09/09/15 10:00 11/26/15 09:04 Prinivil - GT 40 mg DAILY [facility] Administration Metoprolol Tartrate 5 mg 09/09/15 09:29 Lopressor Injection - IVPB Q6H PRN HYPERTENSION Metoprolol Tartrate 150 mg 11/16/15 21:12 11/26/15 09:04 Lopressor - GT 150 mg BID [facility] Administration Multivitamins 5 ml 09/09/15 10:00 11/26/15 12:48 Thera-Plus - GT 5 ml DAILY [facility] Administration Pantoprazole Sodium 40 mg 09/09/15 10:00 11/26/15 09:04 Protonix Packets For Oral Suspension - GT 40 mg DAILY [facility] Administration Objective: Vital Signs Period Temp Pulse Resp BP Sys/Santiago Pulse Ox Last 24 Hr 98.2 F-99.1 F 83-103 20-24 133-148/74-90 97-99 Physical Exam: General: No acute distress Neuro: spontaneous eye movement, non verbal Pulm: Tach collar, clear anteriorly, minimal yellow secretions CV: RRR, S1S2 Abd: Soft, non-tender, non-distended. Normoactive bowel sounds. Peg tube CDI, Ext: Warm, well-perfused. 2+ DP/PT bilaterally CBCD WBC 7.1 K/mm3 (4.0-10.0) 11/26/15 06:45 RBC 3.43 M/mm3 (4.00-5.60) L 11/26/15 06:45 Hgb 9.8 GM/dL (11.7-16.9) L 11/26/15 06:45 Hct 29.6 % (35.4-49) L 11/26/15 06:45 MCV 86.4 fl (80-96) 11/26/15 06:45 MCHC 33.1 g/dl (32.0-35.9) 11/26/15 06:45 RDW 17.2 % (11.9-15.9) H 11/26/15 06:45 Plt Count 194 K/MM3 (134-434) 11/26/15 06:45 MPV 8.3 fl (7.5-11.1) 11/26/15 06:45 CMP Sodium 143 mmol/L (136-145) 11/23/15 06:45 Potassium 3.6 mmol/L (3.5-5.1) 11/23/15 06:45 Chloride 102 mmol/L (98-107) 11/23/15 06:45 Carbon Dioxide 32 mmol/L (21-32) 11/23/15 06:45 Anion Gap 9 (8-16) 11/23/15 06:45 BUN 24 mg/dL (7-18) H D 11/23/15 06:45 Creatinine 0.7 mg/dL (0.7-1.3) D 11/23/15 06:45 Creat Clearance w eGFR > 60 (>60) 11/13/15 07:15 Random Glucose 163 mg/dL (74-106) H 11/23/15 06:45 Calcium 9.8 mg/dL (8.5-10.1) 11/23/15 06:45 Total Bilirubin 0.2 mg/dL (0.2-1.0) 11/13/15 07:15 AST 14 U/L (15-37) L 11/13/15 07:15 ALT 17 U/L (12-78) 11/13/15 07:15 Alkaline Phosphatase 98 U/L (45-117) 11/13/15 07:15 Total Protein 7.3 g/dl (6.4-8.2) 11/13/15 07:15 Albumin 3.0 g/dl (3.4-5.0) L 11/13/15 07:15 CARDIAC ENZYMES Creatine Kinase 62 IU/L (38-174) 06/28/15 09:35 Troponin I 0.07 ng/ml (0.03-0.5) D 07/09/15 05:00 Assessment: 75 year old male with PMHx of HTN, IDDM, inguinal hernia who presented to the ED with diverticular bleed s/p Righ hemicolectomy with 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 Plan: 1. Pneumonia: HAP - Chest X-ray with possible retrocardiac infiltrate. - Continue Vancomycin - Continue Zosyn 2. Anoxic brain injury s/p brainstem CVAs - Mental status unchanged 3. Respiratory failure secondary to anoxic brain injury - Cont trach collar - Will not need to be discharged to a vent facility - Albuterol neb PRN 4. HTN - Continue lisinopril, metoprolol, amlodipine 5. Multiple pressure ulcers - Stage III sacrum healing - Stage II left ear healing - Turn and position q2h 6. IDDM - Levemir 28 units HS - ISS BGM ACHS 7. F/E/N: - Tube feeds: Vital 1.5 @60ml/hr 8. Prophylaxis: - SCDs bilaterally - Lovenox - PT for passive ROM. Instructed the nurse to do frequent passive ROM as well CODE STATUS: DNR
[2015-11-26] MEDS: INSULIN DETEMIR 100 UNITS/ML MDV SQ SCH (21:49)
[2015-11-27] MEDS: INSULIN (NOVOLOG) ASPART 100 UNITS/ML 10ML VIAL SQ SCH ×4 (00:05→17:19)
[2015-11-27] MEDS: PIPERACILLIN/TAZOB 3.375 GM 3.375 GM in DEXTROSE 5%-WATER - 50 ML IVPB SCH ×4 (02:29→22:23)
[2015-11-27] MEDS: VANCOMYCIN 1,000 MG in DEXTROSE 5%-WATER - 250 ML IVPB SCH ×2 (03:39→17:19)
[2015-11-27] MEDS: AMINO ACIDS/PROTEIN HYDROLYS SUGAR-FREE 30 ML PACKET PO SCH ×2 (08:45→17:19)
[2015-11-27] MEDS: LACTOBACILLUS ACIDOPHILUS 1 EACH TAB (FP) PO SCH (11:51)
[2015-11-27] MEDS: LISINOPRIL 20 MG TABLET (FP) GT SCH (11:51)
[2015-11-27] MEDS: ENOXAPARIN NA (PORCINE) 40 MG/0.4 ML DISP.SYRIN SQ SCH (11:52)
[2015-11-27] MEDS: PANTOPRAZOLE SOD 40 MG SUSPENSION PACKET GT SCH (11:52)
[2015-11-27] MEDS: MULTIVITAMINS THERAPEUTIC GT SCH (11:52)
[2015-11-27] MEDS: amLODIPine BESYLATE 10 MG TABLET (FP) GT SCH (11:52)
[2015-11-27] MEDS: METOPROLOL TARTRATE 50 MG TABLET (FP) GT SCH ×2 (11:53→22:23)
--- NOTE | 2015-11-27 18:41 | PN ---
Progress Note (short form) - Note Progress Note: Subjective: . no events last night . Objective: Last Vital Signs Temp Pulse Resp BP Pulse Ox 98.8 F 84 20 151/97 98 11/27/15 15:41 11/27/15 15:41 11/27/15 15:41 11/27/15 15:41 11/27/15 10:02 Physical Exam: NAD, trached .track with his eyes . CV: RRR, no MRG lungs:course breath sounds b/l anteriorly ext: no edema on legs. L heal bruise abd: soft, NT, ND , nl BS PEG Assessment/Plan: 5 yo M with PMH HTN, DM, inguinal hernia a/w BRBPR and melena with multiple syncopal episodes. Dx with persistent diverticular bleed with R hemicolectomy, course complicated with CVA now in the ICU unresponsive and anoxic brain injury had tracheostomy on 07/23. also s/p PEG placement and iliac artery bleed s /p embolization 09/03/15. 1-acute GI bleed, s/p colonoscopy and R hemicolectomy. no further bleed 2- hcap: cont vanc and zosyn 3- Anoxic brain injury and CVA, s/p Trach 07/23. s/p PEG 3- HTN : cont meds . better controlled 4- DM : cont insulin 5- nutrition through PEG DNR
[2015-11-27] MEDS: INSULIN DETEMIR 100 UNITS/ML MDV SQ SCH (22:23)
[2015-11-28] MEDS: INSULIN (NOVOLOG) ASPART 100 UNITS/ML 10ML VIAL SQ SCH ×5 (00:10→23:54)
[2015-11-28] MEDS: PIPERACILLIN/TAZOB 3.375 GM 3.375 GM in DEXTROSE 5%-WATER - 50 ML IVPB SCH ×4 (02:22→21:12)
[2015-11-28] MEDS: VANCOMYCIN 1,000 MG in DEXTROSE 5%-WATER - 250 ML IVPB SCH ×2 (04:47→16:30)
[2015-11-28] MEDS: AMINO ACIDS/PROTEIN HYDROLYS SUGAR-FREE 30 ML PACKET PO SCH ×2 (08:59→17:11)
[2015-11-28] MEDS: LACTOBACILLUS ACIDOPHILUS 1 EACH TAB (FP) PO SCH (09:06)
[2015-11-28] MEDS: LISINOPRIL 20 MG TABLET (FP) GT SCH (09:06)
[2015-11-28] MEDS: METOPROLOL TARTRATE 50 MG TABLET (FP) GT SCH ×2 (09:07→21:17)
[2015-11-28] MEDS: ENOXAPARIN NA (PORCINE) 40 MG/0.4 ML DISP.SYRIN SQ SCH (09:07)
[2015-11-28] MEDS: PANTOPRAZOLE SOD 40 MG SUSPENSION PACKET GT SCH (09:08)
[2015-11-28] MEDS: MULTIVITAMINS THERAPEUTIC GT SCH (09:08)
[2015-11-28] MEDS: amLODIPine BESYLATE 10 MG TABLET (FP) GT SCH (09:08)
--- NOTE | 2015-11-28 18:39 | PN ---
Progress Note (short form) - Note Progress Note: Subjective: . no events last night . Objective: Last Vital Signs Temp Pulse Resp BP Pulse Ox 99.3 F 92 H 20 142/89 96 11/28/15 17:10 11/28/15 17:10 11/28/15 17:10 11/28/15 17:10 11/28/15 11:41 Physical Exam: NAD, trached .track with his eyes . CV: RRR, no MRG lungs:course breath sounds b/l anteriorly ext: no edema on legs. L heal bruise abd: soft, NT, ND , nl BS PEG Assessment/Plan: 5 yo M with PMH HTN, DM, inguinal hernia a/w BRBPR and melena with multiple syncopal episodes. Dx with persistent diverticular bleed with R hemicolectomy, course complicated with CVA now in the ICU unresponsive and anoxic brain injury had tracheostomy on 07/23. also s/p PEG placement and iliac artery bleed s /p embolization 09/03/15. 1-acute GI bleed, s/p colonoscopy and R hemicolectomy. no further bleed 2- hcap: cont vanc and zosyn day 3- Anoxic brain injury and CVA, s/p Trach 07/23. s/p PEG 3- HTN : cont meds . better controlled 4- DM : cont insulin 5- nutrition through PEG : at goal 60 cc/he of jevity 1.5 with free water 45/hr DNR
[2015-11-28] MEDS: INSULIN DETEMIR 100 UNITS/ML MDV SQ SCH (21:12)
[2015-11-29] MEDS: PIPERACILLIN/TAZOB 3.375 GM 3.375 GM in DEXTROSE 5%-WATER - 50 ML IVPB SCH ×4 (03:28→21:03)
[2015-11-29] MEDS: VANCOMYCIN 1,000 MG in DEXTROSE 5%-WATER - 250 ML IVPB SCH ×2 (04:54→16:58)
[2015-11-29] MEDS: INSULIN (NOVOLOG) ASPART 100 UNITS/ML 10ML VIAL SQ SCH ×4 (05:15→23:49)
[2015-11-29] MEDS: AMINO ACIDS/PROTEIN HYDROLYS SUGAR-FREE 30 ML PACKET PO SCH ×2 (09:14→17:00)
[2015-11-29] MEDS: ENOXAPARIN NA (PORCINE) 40 MG/0.4 ML DISP.SYRIN SQ SCH (10:08)
[2015-11-29] MEDS: LISINOPRIL 20 MG TABLET (FP) GT SCH (10:09)
[2015-11-29] MEDS: MULTIVITAMINS THERAPEUTIC GT SCH (10:09)
[2015-11-29] MEDS: PANTOPRAZOLE SOD 40 MG SUSPENSION PACKET GT SCH (10:09)
[2015-11-29] MEDS: METOPROLOL TARTRATE 50 MG TABLET (FP) GT SCH ×2 (10:09→21:04)
[2015-11-29] MEDS: amLODIPine BESYLATE 10 MG TABLET (FP) GT SCH (10:09)
[2015-11-29] MEDS: LACTOBACILLUS ACIDOPHILUS 1 EACH TAB (FP) PO SCH (10:10)
--- NOTE | 2015-11-29 17:50 | PN ---
Progress Note (short form) - Note Progress Note: Subjective: . no events last night . Objective: Last Vital Signs Temp Pulse Resp BP Pulse Ox 98.3 F 110 H 12 155/83 98 11/29/15 14:00 11/29/15 14:00 11/29/15 14:00 11/29/15 14:00 11/29/15 10:28 Physical Exam: NAD .tracks with his eyes and his head . CV: RRR, no MRG lungs:course breath sounds b/l anteriorly ext: no edema on legs. L heal bruise abd: soft, NT, ND , nl BS PEG Laboratory Results - last 24 hr 11/28/15 11/28/15 11/29/15 21:22 23:53 05:14 POC Glucometer 137 146 202 11/29/15 11/29/15 12:41 16:59 POC Glucometer 203 209 Assessment/Plan: 75 yo M with PMH HTN, DM, inguinal hernia a/w BRBPR and melena with multiple syncopal episodes. Dx with persistent diverticular bleed with R hemicolectomy, course complicated with CVA now in the ICU unresponsive and anoxic brain injury had tracheostomy on 07/23. also s/p PEG placement and iliac artery bleed s /p embolization 09/03/15. 1-acute GI bleed, s/p colonoscopy and R hemicolectomy. no further bleed 2- HCAP: cont vanc and zosyn day no more fever 3- Anoxic brain injury and CVA, s/p Trach 07/23. s/p PEG 3- HTN: cont meds . slightly better today 4- DM : cont insulin 5- nutrition through PEG : at goal 60 cc/he of jevity 1.5 with free water 45/hr DNR
[2015-11-29] MEDS: INSULIN DETEMIR 100 UNITS/ML MDV SQ SCH (21:04)
[2015-11-30] MEDS: PIPERACILLIN/TAZOB 3.375 GM 3.375 GM in DEXTROSE 5%-WATER - 50 ML IVPB SCH ×4 (03:23→21:53)
[2015-11-30] MEDS: VANCOMYCIN 1,000 MG in DEXTROSE 5%-WATER - 250 ML IVPB SCH ×2 (04:55→17:57)
[2015-11-30] MEDS: INSULIN (NOVOLOG) ASPART 100 UNITS/ML 10ML VIAL SQ SCH ×3 (05:12→18:08)
[2015-11-30] MEDS: AMINO ACIDS/PROTEIN HYDROLYS SUGAR-FREE 30 ML PACKET PO SCH ×2 (08:54→17:57)
[2015-11-30] MEDS: LACTOBACILLUS ACIDOPHILUS 1 EACH TAB (FP) PO SCH (09:48)
[2015-11-30] MEDS: amLODIPine BESYLATE 10 MG TABLET (FP) GT SCH (09:49)
[2015-11-30] MEDS: ENOXAPARIN NA (PORCINE) 40 MG/0.4 ML DISP.SYRIN SQ SCH (09:49)
[2015-11-30] MEDS: LISINOPRIL 20 MG TABLET (FP) GT SCH (09:50)
[2015-11-30] MEDS: METOPROLOL TARTRATE 50 MG TABLET (FP) GT SCH ×2 (10:01→21:53)
[2015-11-30] MEDS: PANTOPRAZOLE SOD 40 MG SUSPENSION PACKET GT SCH (10:20)
[2015-11-30] MEDS: MULTIVITAMINS THERAPEUTIC GT SCH (10:20)
--- NOTE | 2015-11-30 18:15 | PN ---
Progress Note (short form) - Note Progress Note: Subjective: . no events last night . Objective: Last Vital Signs Temp Pulse Resp BP Pulse Ox 98.9 F 92 H 18 142/83 98 11/30/15 14:00 11/30/15 14:00 11/30/15 14:00 11/30/15 14:00 11/30/15 10:07 Physical Exam: NAD .tracks with his eyes and his head . CV: RRR, no MRG lungs:course breath sounds b/l anteriorly ext: no edema on legs. L heal bruise abd: soft, NT, ND , nl BS PEG Laboratory Results - last 24 hr 11/29/15 11/29/15 11/30/15 21:00 23:22 05:11 POC Glucometer 196 154 178 11/30/15 12:11 POC Glucometer 188 Assessment/Plan: 75 yo M with PMH HTN, DM, inguinal hernia a/w BRBPR and melena with multiple syncopal episodes. Dx with persistent diverticular bleed with R hemicolectomy, course complicated with CVA now in the ICU unresponsive and anoxic brain injury had tracheostomy on 07/23. also s/p PEG placement and iliac artery bleed s /p embolization 09/03/15. 1-acute GI bleed, s/p colonoscopy and R hemicolectomy. no further bleed 2- HCAP: cont vanc and zosyn day no more fever vanco trough tomorrow am 3- Anoxic brain injury and CVA, s/p Trach 07/23. s/p PEG 3- HTN: cont meds . 4- DM : cont insulin 5- nutrition through PEG : at goal 60 cc/he of jevity 1.5 with free water 45/hr DNR
[2015-11-30] MEDS: INSULIN DETEMIR 100 UNITS/ML MDV SQ SCH (21:53)
[2015-12-01] MEDS: INSULIN (NOVOLOG) ASPART 100 UNITS/ML 10ML VIAL SQ SCH ×4 (00:15→18:00)
[2015-12-01] MEDS: PIPERACILLIN/TAZOB 3.375 GM 3.375 GM in DEXTROSE 5%-WATER - 50 ML IVPB SCH ×4 (03:20→21:29)
[2015-12-01] MEDS: VANCOMYCIN 1,000 MG in DEXTROSE 5%-WATER - 250 ML IVPB SCH ×2 (06:37→16:46)
[2015-12-01] MEDS: LACTOBACILLUS ACIDOPHILUS 1 EACH TAB (FP) PO SCH (11:25)
[2015-12-01] MEDS: LISINOPRIL 20 MG TABLET (FP) GT SCH (11:25)
[2015-12-01] MEDS: PANTOPRAZOLE SOD 40 MG SUSPENSION PACKET GT SCH (11:25)
[2015-12-01] MEDS: MULTIVITAMINS THERAPEUTIC GT SCH (11:25)
[2015-12-01] MEDS: AMINO ACIDS/PROTEIN HYDROLYS SUGAR-FREE 30 ML PACKET PO SCH ×2 (11:26→16:46)
[2015-12-01] MEDS: amLODIPine BESYLATE 10 MG TABLET (FP) GT SCH (11:26)
[2015-12-01] MEDS: METOPROLOL TARTRATE 50 MG TABLET (FP) GT SCH ×2 (11:26→22:29)
[2015-12-01] MEDS: ENOXAPARIN NA (PORCINE) 40 MG/0.4 ML DISP.SYRIN SQ SCH (11:26)
--- NOTE | 2015-12-01 12:59 | PN ---
Progress Note, Physician History of Present Illness: pt seen and evaluated at the bedside - Current Medication List Current Medications: Active Medications Acetaminophen (Tylenol Oral Solution -) 650 mg GT Q6H PRN PRN Reason: FEVER Last Admin: 10/28/15 17:53 Dose: 650 mg Amino Acids (Prostat Sugar-Free Packet -) 30 ml PO BID@0800,1730 [facility] Last Admin: 12/01/15 11:26 Dose: 30 ml Amlodipine Besylate (Norvasc -) 10 mg GT DAILY [facility] Last Admin: 12/01/15 11:26 Dose: 10 mg Enoxaparin Sodium (Lovenox -) 40 mg SQ DAILY [facility] Last Admin: 12/01/15 11:26 Dose: 40 mg Piperacillin Sod/Tazobactam (Sod 3.375 gm/ Dextrose) 50 mls @ 100 mls/hr IVPB Q6H-IV [facility] Last Admin: 12/01/15 09:44 Dose: 100 mls/hr Vancomycin HCl 1,000 mg/ (Dextrose) 250 mls @ 166.667 mls/hr IVPB Q12H [facility] Last Admin: 12/01/15 06:37 Dose: 166.667 mls/hr Ibuprofen (Motrin Oral Suspension -) 200 mg PO Q6H PRN PRN Reason: FEVER Last Admin: 10/28/15 13:23 Dose: 200 mg Insulin Aspart (Novolog Vial) 0 units SQ Q6HPO [facility] PRN Reason: Protocol Last Admin: 12/01/15 11:30 Dose: 2 units Insulin Detemir (Levemir Vial) 28 units SQ HS [facility] Last Admin: 11/30/15 21:53 Dose: 28 units Lactobacillus Acidophilus (Bacid -) 1 tab PO DAILY [facility] Last Admin: 12/01/15 11:25 Dose: 1 tab Lisinopril (Prinivil -) 40 mg GT DAILY [facility] Last Admin: 12/01/15 11:25 Dose: 40 mg Metoprolol Tartrate (Lopressor Injection -) 5 mg IVPB Q6H PRN PRN Reason: HYPERTENSION Metoprolol Tartrate (Lopressor -) 150 mg GT BID [facility] Last Admin: 12/01/15 11:26 Dose: 150 mg Multivitamins (Thera-Plus -) 5 ml GT DAILY [facility] Last Admin: 12/01/15 11:25 Dose: 5 ml Pantoprazole Sodium (Protonix Packets For Oral Suspension -) 40 mg GT DAILY [facility] Last Admin: 12/01/15 11:25 Dose: 40 mg - Objective Vital Signs: Vital Signs Temperature 98.5 F 12/01/15 11:41 Pulse Rate 90 12/01/15 11:41 Respiratory Rate 20 12/01/15 11:41 Blood Pressure 156/94 12/01/15 11:41 O2 Sat by Pulse Oximetry (%) 97 12/01/15 11:13 Constitutional: Yes: Well Nourished, No Distress, Calm Eyes: Yes: WNL, Conjunctiva Clear HENT: Yes: WNL, Atraumatic, Normocephalic Neck: Yes: Supple, Trachea Midline, Other (trach in place) Cardiovascular: Yes: WNL, Regular Rate and Rhythm Respiratory: Yes: WNL, Regular, CTA Bilaterally Gastrointestinal: Yes: Normal Bowel Sounds, Other (PEG in Place) Musculoskeletal: Yes: WNL Extremities: Yes: WNL Edema: No Integumentary: Yes: WNL Neurological: Yes: Alert ...Motor Strength: WNL Psychiatric: Yes: WNL Labs: CBC, BMP 11/26/15 06:45 11/23/15 06:45 INR, PTT INR 1.29 (0.80-1.00) H 11/13/15 07:15 Assessment/Plan 75 year old male admitted on 06/26 with GI bleed, course complicated by acute CVA and respiratory failure s/p intubation-->tracheostomy and PEG. 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 diff -completed PO vancomycin via PEG tube DVT proph -venodyne boots
[2015-12-01] MEDS: INSULIN DETEMIR 100 UNITS/ML MDV SQ SCH (22:29)
[2015-12-02] MEDS: INSULIN (NOVOLOG) ASPART 100 UNITS/ML 10ML VIAL SQ SCH ×5 (00:15→23:09)
[2015-12-02] MEDS: PIPERACILLIN/TAZOB 3.375 GM 3.375 GM in DEXTROSE 5%-WATER - 50 ML IVPB SCH ×4 (02:43→22:00)
[2015-12-02] MEDS: VANCOMYCIN 1,000 MG in DEXTROSE 5%-WATER - 250 ML IVPB SCH ×2 (04:46→17:22)
[2015-12-02] MEDS: LACTOBACILLUS ACIDOPHILUS 1 EACH TAB (FP) PO SCH (11:39)
[2015-12-02] MEDS: METOPROLOL TARTRATE 50 MG TABLET (FP) GT SCH ×2 (11:39→22:02)
[2015-12-02] MEDS: LISINOPRIL 20 MG TABLET (FP) GT SCH (11:39)
[2015-12-02] MEDS: amLODIPine BESYLATE 10 MG TABLET (FP) GT SCH (11:40)
[2015-12-02] MEDS: ENOXAPARIN NA (PORCINE) 40 MG/0.4 ML DISP.SYRIN SQ SCH (11:40)
[2015-12-02] MEDS: MULTIVITAMINS THERAPEUTIC GT SCH (11:40)
[2015-12-02] MEDS: AMINO ACIDS/PROTEIN HYDROLYS SUGAR-FREE 30 ML PACKET PO SCH ×2 (11:40→17:23)
[2015-12-02] MEDS: PANTOPRAZOLE SOD 40 MG SUSPENSION PACKET GT SCH (11:40)
[2015-12-02] MEDS: ALBUTEROL SO4 2.5/IPRATROPIUM 0.5 INH SOL 3 ML VIAL.NEB. NEB PRN (14:33)
--- NOTE | 2015-12-02 17:59 | PN ---
Progress Note, Physician History of Present Illness: pt seen and evaluated at the bedside - Current Medication List Current Medications: Active Medications Acetaminophen (Tylenol Oral Solution -) 650 mg GT Q6H PRN PRN Reason: FEVER Last Admin: 10/28/15 17:53 Dose: 650 mg Albuterol/Ipratropium (Duoneb -) 1 amp NEB Q4H PRN PRN Reason: SHORTNESS OF BREATH Last Admin: 12/02/15 14:33 Dose: 1 amp Amino Acids (Prostat Sugar-Free Packet -) 30 ml PO BID@0800,1730 [facility] Last Admin: 12/02/15 17:23 Dose: 30 ml Amlodipine Besylate (Norvasc -) 10 mg GT DAILY [facility] Last Admin: 12/02/15 11:40 Dose: 10 mg Enoxaparin Sodium (Lovenox -) 40 mg SQ DAILY [facility] Last Admin: 12/02/15 11:40 Dose: 40 mg Piperacillin Sod/Tazobactam (Sod 3.375 gm/ Dextrose) 50 mls @ 100 mls/hr IVPB Q6H-IV [facility] Last Admin: 12/02/15 15:09 Dose: 100 mls/hr Vancomycin HCl 1,000 mg/ (Dextrose) 250 mls @ 166.667 mls/hr IVPB Q12H [facility] Last Admin: 12/02/15 17:22 Dose: 166.667 mls/hr Ibuprofen (Motrin Oral Suspension -) 200 mg PO Q6H PRN PRN Reason: FEVER Last Admin: 10/28/15 13:23 Dose: 200 mg Insulin Aspart (Novolog Vial) 0 units SQ Q6HPO [facility] PRN Reason: Protocol Last Admin: 12/02/15 17:48 Dose: 2 units Insulin Detemir (Levemir Vial) 28 units SQ HS [facility] Last Admin: 12/01/15 22:29 Dose: 28 units Lactobacillus Acidophilus (Bacid -) 1 tab PO DAILY [facility] Last Admin: 12/02/15 11:39 Dose: 1 tab Lisinopril (Prinivil -) 40 mg GT DAILY [facility] Last Admin: 12/02/15 11:39 Dose: 40 mg Metoprolol Tartrate (Lopressor Injection -) 5 mg IVPB Q6H PRN PRN Reason: HYPERTENSION Metoprolol Tartrate (Lopressor -) 150 mg GT BID [facility] Last Admin: 12/02/15 11:39 Dose: 150 mg Multivitamins (Thera-Plus -) 5 ml GT DAILY [facility] Last Admin: 12/02/15 11:40 Dose: 5 ml Pantoprazole Sodium (Protonix Packets For Oral Suspension -) 40 mg GT DAILY [facility] Last Admin: 12/02/15 11:40 Dose: 40 mg - Objective Vital Signs: Vital Signs Temperature 98.6 F 12/02/15 13:55 Pulse Rate 79 12/02/15 13:56 Respiratory Rate 18 12/02/15 13:55 Blood Pressure 146/97 12/02/15 13:55 O2 Sat by Pulse Oximetry (%) 99 12/02/15 13:56 Eyes: Yes: WNL, Conjunctiva Clear HENT: Yes: WNL, Atraumatic, Normocephalic Neck: Yes: Supple, Trachea Midline, Other (trach in place) Cardiovascular: Yes: WNL, Regular Rate and Rhythm Respiratory: Yes: WNL, Regular, CTA Bilaterally Gastrointestinal: Yes: Normal Bowel Sounds, Other (PEG in place) Musculoskeletal: Yes: WNL Extremities: Yes: WNL Edema: No Integumentary: Yes: WNL Neurological: Yes: WNL, Alert, Oriented ...Motor Strength: WNL Psychiatric: Yes: WNL Labs: CBC, BMP 11/26/15 06:45 11/23/15 06:45 INR, PTT INR 1.29 (0.80-1.00) H 11/13/15 07:15 Assessment/Plan 75 year old male admitted on 06/26 with GI bleed, course complicated by acute CVA and respiratory failure s/p intubation-->tracheostomy and PEG. 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 diff -completed PO vancomycin via PEG tube DVT proph -venodyne boots
[2015-12-02] MEDS: INSULIN DETEMIR 100 UNITS/ML MDV SQ SCH (22:10)
[2015-12-03] MEDS: VANCOMYCIN 1,000 MG in DEXTROSE 5%-WATER - 250 ML IVPB SCH ×2 (05:27→16:14)
[2015-12-03] MEDS: INSULIN (NOVOLOG) ASPART 100 UNITS/ML 10ML VIAL SQ SCH ×3 (05:35→17:28)
[2015-12-03 08:16] LABS: ALBUMIN 3.1 g/dl (3.4-5.0); ALK PHOS 96 U/L (45-117); ANION GAP 9 (8-16); BILIRUBIN,TOTAL 0.3 mg/dL (0.2-1.0); CO2 30 mmol/L (21-32); CREATININE 0.7 mg/dL (0.7-1.3); GLUCOSE,RANDOM 229 mg/dL (74-106); SGOT/AST 20 U/L (15-37); SGPT/ALT 20 U/L (12-78); TOT PROT 7.3 g/dl (6.4-8.2)
[2015-12-03 09:50] LABS: BASOPHIL 1.1 % (0-2.0); EOSINOPHIL 4.3 % (0-4.5); MCH 28.2 pg (25.7-33.7); MEAN CELL VOLUME 85.3 fl (80-96); MEAN PLT VOLUME 7.9 fl (7.5-11.1); NEUTROPHILS 67.6 % (42.8-82.8); PLATELET COUNT 239 K/MM3 (134-434); RDW 16.5 % (11.9-15.9); WHITE BLOOD COUNT 8.8 K/mm3 (4.0-10.0)
[2015-12-03] MEDS: MULTIVITAMINS THERAPEUTIC GT SCH (10:16)
[2015-12-03] MEDS: ENOXAPARIN NA (PORCINE) 40 MG/0.4 ML DISP.SYRIN SQ SCH (10:17)
[2015-12-03] MEDS: AMINO ACIDS/PROTEIN HYDROLYS SUGAR-FREE 30 ML PACKET PO SCH ×2 (10:18→17:28)
[2015-12-03] MEDS: LACTOBACILLUS ACIDOPHILUS 1 EACH TAB (FP) PO SCH (10:18)
[2015-12-03] MEDS: amLODIPine BESYLATE 10 MG TABLET (FP) GT SCH (10:18)
[2015-12-03] MEDS: PANTOPRAZOLE SOD 40 MG SUSPENSION PACKET GT SCH (10:23)
[2015-12-03] MEDS: METOPROLOL TARTRATE 50 MG TABLET (FP) GT SCH ×2 (10:23→21:51)
[2015-12-03] MEDS: LISINOPRIL 20 MG TABLET (FP) GT SCH (10:23)
[2015-12-03] MEDS: ALBUTEROL SO4 2.5/IPRATROPIUM 0.5 INH SOL 3 ML VIAL.NEB. NEB PRN ×2 (12:00→18:27)
--- NOTE | 2015-12-03 18:24 | PN ---
Progress Note, Physician History of Present Illness: pt seen and evaluated at the bedside - Current Medication List Current Medications: Active Medications Acetaminophen (Tylenol Oral Solution -) 650 mg GT Q6H PRN PRN Reason: FEVER Last Admin: 10/28/15 17:53 Dose: 650 mg Albuterol/Ipratropium (Duoneb -) 1 amp NEB Q4H PRN PRN Reason: SHORTNESS OF BREATH Last Admin: 12/03/15 12:00 Dose: 1 amp Amino Acids (Prostat Sugar-Free Packet -) 30 ml PO BID@0800,1730 [facility] Last Admin: 12/03/15 17:28 Dose: 30 ml Amlodipine Besylate (Norvasc -) 10 mg GT DAILY [facility] Last Admin: 12/03/15 10:18 Dose: 10 mg Enoxaparin Sodium (Lovenox -) 40 mg SQ DAILY [facility] Last Admin: 12/03/15 10:17 Dose: 40 mg Guaifenesin (Robitussin Dm -) 10 ml PO Q6H PRN PRN Reason: COUGH Ibuprofen (Motrin Oral Suspension -) 200 mg PO Q6H PRN PRN Reason: FEVER Last Admin: 10/28/15 13:23 Dose: 200 mg Insulin Aspart (Novolog Vial) 0 units SQ Q6HPO [facility] PRN Reason: Protocol Last Admin: 12/03/15 17:28 Dose: 2 units Insulin Detemir (Levemir Vial) 28 units SQ HS [facility] Last Admin: 12/02/15 22:10 Dose: 28 units Lactobacillus Acidophilus (Bacid -) 1 tab PO DAILY [facility] Last Admin: 12/03/15 10:18 Dose: 1 tab Lisinopril (Prinivil -) 40 mg GT DAILY [facility] Last Admin: 12/03/15 10:23 Dose: 40 mg Metoprolol Tartrate (Lopressor Injection -) 5 mg IVPB Q6H PRN PRN Reason: HYPERTENSION Metoprolol Tartrate (Lopressor -) 150 mg GT BID [facility] Last Admin: 12/03/15 10:23 Dose: 150 mg Multivitamins (Thera-Plus -) 5 ml GT DAILY [facility] Last Admin: 12/03/15 10:16 Dose: 5 ml Pantoprazole Sodium (Protonix Packets For Oral Suspension -) 40 mg GT DAILY [facility] Last Admin: 12/03/15 10:23 Dose: 40 mg - Objective Vital Signs: Vital Signs Temperature 98.7 F 12/03/15 18:18 Pulse Rate 88 12/03/15 18:18 Respiratory Rate 20 12/03/15 18:18 Blood Pressure 151/88 12/03/15 18:18 O2 Sat by Pulse Oximetry (%) 98 12/03/15 10:10 Eyes: Yes: WNL, Conjunctiva Clear HENT: Yes: WNL, Atraumatic, Normocephalic Neck: Yes: Supple, Trachea Midline, Other (trach in place) Cardiovascular: Yes: WNL, Regular Rate and Rhythm Respiratory: Yes: WNL, Regular, CTA Bilaterally Gastrointestinal: Yes: Normal Bowel Sounds, Other (PEG in place) Musculoskeletal: Yes: WNL Extremities: Yes: WNL Edema: No Integumentary: Yes: WNL Neurological: Yes: WNL, Alert, Oriented ...Motor Strength: WNL Psychiatric: Yes: WNL Labs: CBC, BMP 12/03/15 06:35 12/03/15 06:35 INR, PTT INR 1.29 (0.80-1.00) H 11/13/15 07:15 Assessment/Plan 75 year old male admitted on 06/26 with GI bleed, course complicated by acute CVA and respiratory failure s/p intubation-->tracheostomy and PEG. 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 diff -completed PO vancomycin via PEG tube DVT proph -venodyne boots
[2015-12-03] MEDS: INSULIN DETEMIR 100 UNITS/ML MDV SQ SCH (21:52)
[2015-12-04] MEDS: INSULIN (NOVOLOG) ASPART 100 UNITS/ML 10ML VIAL SQ SCH ×4 (00:38→18:54)
[2015-12-04] MEDS: AMINO ACIDS/PROTEIN HYDROLYS SUGAR-FREE 30 ML PACKET PO SCH ×2 (08:00→17:59)
[2015-12-04] MEDS: LACTOBACILLUS ACIDOPHILUS 1 EACH TAB (FP) PO SCH (10:42)
[2015-12-04] MEDS: METOPROLOL TARTRATE 50 MG TABLET (FP) GT SCH ×2 (10:46→21:37)
[2015-12-04] MEDS: PANTOPRAZOLE SOD 40 MG SUSPENSION PACKET GT SCH (10:47)
[2015-12-04] MEDS: MULTIVITAMINS THERAPEUTIC GT SCH (10:47)
[2015-12-04] MEDS: ENOXAPARIN NA (PORCINE) 40 MG/0.4 ML DISP.SYRIN SQ SCH (10:47)
[2015-12-04] MEDS: LISINOPRIL 20 MG TABLET (FP) GT SCH (10:47)
[2015-12-04] MEDS: amLODIPine BESYLATE 10 MG TABLET (FP) GT SCH (10:47)
--- NOTE | 2015-12-04 17:39 | PN ---
Progress Note, Physician History of Present Illness: pt seen and evaluated at the bedside - Current Medication List Current Medications: Active Medications Acetaminophen (Tylenol Oral Solution -) 650 mg GT Q6H PRN PRN Reason: FEVER Last Admin: 10/28/15 17:53 Dose: 650 mg Albuterol/Ipratropium (Duoneb -) 1 amp NEB Q4H PRN PRN Reason: SHORTNESS OF BREATH Last Admin: 12/03/15 18:27 Dose: 1 amp Amino Acids (Prostat Sugar-Free Packet -) 30 ml PO BID@0800,1730 [facility] Last Admin: 12/04/15 08:00 Dose: 30 ml Amlodipine Besylate (Norvasc -) 10 mg GT DAILY [facility] Last Admin: 12/04/15 10:47 Dose: 10 mg Guaifenesin (Robitussin Dm -) 10 ml PO Q6H PRN PRN Reason: COUGH Ibuprofen (Motrin Oral Suspension -) 200 mg PO Q6H PRN PRN Reason: FEVER Last Admin: 10/28/15 13:23 Dose: 200 mg Insulin Aspart (Novolog Vial) 0 units SQ Q6HPO [facility] PRN Reason: Protocol Last Admin: 12/04/15 16:47 Dose: 2 units Insulin Detemir (Levemir Vial) 28 units SQ HS [facility] Last Admin: 12/03/15 21:52 Dose: 28 units Lactobacillus Acidophilus (Bacid -) 1 tab PO DAILY [facility] Last Admin: 12/04/15 10:42 Dose: 1 tab Lisinopril (Prinivil -) 40 mg GT DAILY [facility] Last Admin: 12/04/15 10:47 Dose: 40 mg Metoprolol Tartrate (Lopressor Injection -) 5 mg IVPB Q6H PRN PRN Reason: HYPERTENSION Metoprolol Tartrate (Lopressor -) 150 mg GT BID [facility] Last Admin: 12/04/15 10:46 Dose: 150 mg Multivitamins (Thera-Plus -) 5 ml GT DAILY [facility] Last Admin: 12/04/15 10:47 Dose: 5 ml Pantoprazole Sodium (Protonix Packets For Oral Suspension -) 40 mg GT DAILY [facility] Last Admin: 12/04/15 10:47 Dose: 40 mg - Objective Vital Signs: Vital Signs Temperature 98.1 F 12/04/15 16:50 Pulse Rate 94 H 12/04/15 16:50 Respiratory Rate 22 12/04/15 16:50 Blood Pressure 162/86 12/04/15 16:50 O2 Sat by Pulse Oximetry (%) 99 12/03/15 21:00 Eyes: Yes: WNL, Conjunctiva Clear HENT: Yes: WNL, Atraumatic, Normocephalic Neck: Yes: Supple, Trachea Midline, Other (trach collar in place) Cardiovascular: Yes: WNL, Regular Rate and Rhythm Respiratory: Yes: WNL, Regular, CTA Bilaterally Gastrointestinal: Yes: Normal Bowel Sounds, Other (PEG tube in place) Musculoskeletal: Yes: WNL Extremities: Yes: WNL Edema: No Integumentary: Yes: WNL Neurological: Yes: WNL, Alert, Oriented ...Motor Strength: WNL Psychiatric: Yes: WNL Labs: CBC, BMP 12/03/15 06:35 12/03/15 06:35 INR, PTT INR 1.29 (0.80-1.00) H 11/13/15 07:15 Assessment/Plan 75 year old male admitted on 06/26 with GI bleed, course complicated by acute CVA and respiratory failure s/p intubation-->tracheostomy and PEG. 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 diff -completed PO vancomycin via PEG tube DVT proph -venodyne boots
[2015-12-04] MEDS: ALBUTEROL SO4 2.5/IPRATROPIUM 0.5 INH SOL 3 ML VIAL.NEB. NEB PRN (19:44)
[2015-12-04] MEDS: guaiFENesin/D-METHORPHAN HB 10 ML UNIT-DOSE CUPS PO PRN (21:37)
[2015-12-04] MEDS: INSULIN DETEMIR 100 UNITS/ML MDV SQ SCH (21:40)
[2015-12-05] MEDS: INSULIN (NOVOLOG) ASPART 100 UNITS/ML 10ML VIAL SQ SCH ×4 (00:54→17:39)
[2015-12-05] MEDS: AMINO ACIDS/PROTEIN HYDROLYS SUGAR-FREE 30 ML PACKET PO SCH ×2 (07:36→17:37)
[2015-12-05] MEDS: LACTOBACILLUS ACIDOPHILUS 1 EACH TAB (FP) PO SCH (09:46)
[2015-12-05] MEDS: METOPROLOL TARTRATE 50 MG TABLET (FP) GT SCH ×2 (09:47→21:35)
[2015-12-05] MEDS: LISINOPRIL 20 MG TABLET (FP) GT SCH (09:48)
[2015-12-05] MEDS: amLODIPine BESYLATE 10 MG TABLET (FP) GT SCH (09:48)
[2015-12-05] MEDS: MULTIVITAMINS THERAPEUTIC GT SCH (09:49)
[2015-12-05] MEDS: PANTOPRAZOLE SOD 40 MG SUSPENSION PACKET GT SCH (09:49)
--- NOTE | 2015-12-05 10:28 | PN ---
Progress Note, Physician History of Present Illness: pt seen and evaluated at the bedside - Current Medication List Current Medications: Active Medications Acetaminophen (Tylenol Oral Solution -) 650 mg GT Q6H PRN PRN Reason: FEVER Last Admin: 10/28/15 17:53 Dose: 650 mg Albuterol/Ipratropium (Duoneb -) 1 amp NEB Q4H PRN PRN Reason: SHORTNESS OF BREATH Last Admin: 12/04/15 19:44 Dose: 1 amp Amino Acids (Prostat Sugar-Free Packet -) 30 ml PO BID@0800,1730 [facility] Last Admin: 12/05/15 07:36 Dose: 30 ml Amlodipine Besylate (Norvasc -) 10 mg GT DAILY [facility] Last Admin: 12/05/15 09:48 Dose: 10 mg Guaifenesin (Robitussin Dm -) 10 ml PO Q6H PRN PRN Reason: COUGH Last Admin: 12/04/15 21:37 Dose: 10 ml Ibuprofen (Motrin Oral Suspension -) 200 mg PO Q6H PRN PRN Reason: FEVER Last Admin: 10/28/15 13:23 Dose: 200 mg Insulin Aspart (Novolog Vial) 0 units SQ Q6HPO [facility] PRN Reason: Protocol Last Admin: 12/05/15 06:02 Dose: Not Given Insulin Detemir (Levemir Vial) 28 units SQ HS [facility] Last Admin: 12/04/15 21:40 Dose: 28 units Lactobacillus Acidophilus (Bacid -) 1 tab PO DAILY [facility] Last Admin: 12/05/15 09:46 Dose: 1 tab Lisinopril (Prinivil -) 40 mg GT DAILY [facility] Last Admin: 12/05/15 09:48 Dose: 40 mg Metoprolol Tartrate (Lopressor Injection -) 5 mg IVPB Q6H PRN PRN Reason: HYPERTENSION Metoprolol Tartrate (Lopressor -) 150 mg GT BID [facility] Last Admin: 12/05/15 09:47 Dose: 150 mg Multivitamins (Thera-Plus -) 5 ml GT DAILY [facility] Last Admin: 12/05/15 09:49 Dose: 5 ml Pantoprazole Sodium (Protonix Packets For Oral Suspension -) 40 mg GT DAILY [facility] Last Admin: 12/05/15 09:49 Dose: 40 mg - Objective Vital Signs: Vital Signs Temperature 98.1 F 12/04/15 16:50 Pulse Rate 95 H 12/04/15 22:00 Respiratory Rate 20 12/04/15 22:00 Blood Pressure 161/87 12/04/15 22:00 O2 Sat by Pulse Oximetry (%) 97 12/04/15 21:00 Eyes: Yes: WNL, Conjunctiva Clear HENT: Yes: WNL, Atraumatic, Normocephalic Neck: Yes: Supple, Trachea Midline, Other (trach in place) Cardiovascular: Yes: WNL, Regular Rate and Rhythm Respiratory: Yes: WNL, Regular, CTA Bilaterally Gastrointestinal: Yes: Normal Bowel Sounds, Other (PEG in place) Musculoskeletal: Yes: WNL Extremities: Yes: WNL Edema: No Integumentary: Yes: WNL Neurological: Yes: WNL, Alert, Oriented ...Motor Strength: WNL Psychiatric: Yes: WNL Labs: CBC, BMP 12/03/15 06:35 12/03/15 06:35 INR, PTT INR 1.29 (0.80-1.00) H 11/13/15 07:15 Assessment/Plan 75 year old male admitted on 06/26 with GI bleed, course complicated by acute CVA and respiratory failure s/p intubation-->tracheostomy and PEG. 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 diff -completed PO vancomycin via PEG tube DVT proph -lovenox 40
[2015-12-05] MEDS: INSULIN DETEMIR 100 UNITS/ML MDV SQ SCH (21:35)
[2015-12-05] MEDS: guaiFENesin/D-METHORPHAN HB 10 ML UNIT-DOSE CUPS PO PRN (21:47)
[2015-12-06] MEDS: INSULIN (NOVOLOG) ASPART 100 UNITS/ML 10ML VIAL SQ SCH ×5 (00:07→23:17)
[2015-12-06] MEDS: MULTIVITAMINS THERAPEUTIC GT SCH (09:36)
[2015-12-06] MEDS: PANTOPRAZOLE SOD 40 MG SUSPENSION PACKET GT SCH (09:36)
[2015-12-06] MEDS: AMINO ACIDS/PROTEIN HYDROLYS SUGAR-FREE 30 ML PACKET PO SCH ×2 (09:36→17:22)
[2015-12-06] MEDS: LISINOPRIL 20 MG TABLET (FP) GT SCH (09:36)
[2015-12-06] MEDS: guaiFENesin/D-METHORPHAN HB 10 ML UNIT-DOSE CUPS PO PRN ×2 (09:37→17:23)
[2015-12-06] MEDS: METOPROLOL TARTRATE 50 MG TABLET (FP) GT SCH ×2 (09:37→22:22)
[2015-12-06] MEDS: LACTOBACILLUS ACIDOPHILUS 1 EACH TAB (FP) PO SCH (09:37)
[2015-12-06] MEDS: amLODIPine BESYLATE 10 MG TABLET (FP) GT SCH (09:37)
[2015-12-06] MEDS: ENOXAPARIN NA (PORCINE) 40 MG/0.4 ML DISP.SYRIN SQ SCH (09:38)
--- NOTE | 2015-12-06 11:28 | PN ---
Progress Note, Physician History of Present Illness: pt seen and evaluated at the bedside - Current Medication List Current Medications: Active Medications Acetaminophen (Tylenol Oral Solution -) 650 mg GT Q6H PRN PRN Reason: FEVER Last Admin: 10/28/15 17:53 Dose: 650 mg Albuterol/Ipratropium (Duoneb -) 1 amp NEB Q4H PRN PRN Reason: SHORTNESS OF BREATH Last Admin: 12/04/15 19:44 Dose: 1 amp Amino Acids (Prostat Sugar-Free Packet -) 30 ml PO BID@0800,1730 [facility] Last Admin: 12/06/15 09:36 Dose: 30 ml Amlodipine Besylate (Norvasc -) 10 mg GT DAILY [facility] Last Admin: 12/06/15 09:37 Dose: 10 mg Enoxaparin Sodium (Lovenox -) 40 mg SQ DAILY [facility] Last Admin: 12/06/15 09:38 Dose: 40 mg Fluconazole (Diflucan 40mg/Ml Suspension -) 200 mg PO ONCE ONE Stop: 12/06/15 11:25 Fluconazole (Diflucan 40mg/Ml Suspension -) 100 mg PO DAILY [facility] Guaifenesin (Robitussin Dm -) 10 ml PO Q6H PRN PRN Reason: COUGH Last Admin: 12/06/15 09:37 Dose: 10 ml Ibuprofen (Motrin Oral Suspension -) 200 mg PO Q6H PRN PRN Reason: FEVER Last Admin: 10/28/15 13:23 Dose: 200 mg Insulin Aspart (Novolog Vial) 0 units SQ Q6HPO [facility] PRN Reason: Protocol Last Admin: 12/06/15 06:06 Dose: 2 units Insulin Detemir (Levemir Vial) 28 units SQ HS [facility] Last Admin: 12/05/15 21:35 Dose: 28 units Lactobacillus Acidophilus (Bacid -) 1 tab PO DAILY [facility] Last Admin: 12/06/15 09:37 Dose: 1 tab Lisinopril (Prinivil -) 40 mg GT DAILY [facility] Last Admin: 12/06/15 09:36 Dose: 40 mg Metoprolol Tartrate (Lopressor Injection -) 5 mg IVPB Q6H PRN PRN Reason: HYPERTENSION Metoprolol Tartrate (Lopressor -) 150 mg GT BID [facility] Last Admin: 12/06/15 09:37 Dose: 150 mg Multivitamins (Thera-Plus -) 5 ml GT DAILY [facility] Last Admin: 12/06/15 09:36 Dose: 5 ml Pantoprazole Sodium (Protonix Packets For Oral Suspension -) 40 mg GT DAILY [facility] Last Admin: 12/06/15 09:36 Dose: 40 mg - Objective Vital Signs: Vital Signs Temperature 98.6 F 12/06/15 09:35 Pulse Rate 100 H 12/06/15 09:35 Respiratory Rate 19 12/06/15 09:35 Blood Pressure 144/92 12/06/15 09:35 O2 Sat by Pulse Oximetry (%) 97 12/05/15 22:20 Eyes: Yes: WNL, Conjunctiva Clear HENT: Yes: WNL, Atraumatic, Normocephalic Neck: Yes: Supple, Trachea Midline, Other (trach in place) Cardiovascular: Yes: WNL, Regular Rate and Rhythm Respiratory: Yes: WNL, Regular, CTA Bilaterally Gastrointestinal: Yes: Normal Bowel Sounds, Other (PEG in place) Musculoskeletal: Yes: WNL Extremities: Yes: WNL Edema: No Integumentary: Yes: WNL Neurological: Yes: WNL, Alert, Oriented ...Motor Strength: WNL Psychiatric: Yes: WNL Labs: CBC, BMP 12/03/15 06:35 12/03/15 06:35 INR, PTT INR 1.29 (0.80-1.00) H 11/13/15 07:15 Assessment/Plan 75 year old male admitted on 06/26 with GI bleed, course complicated by acute CVA and respiratory failure s/p intubation-->tracheostomy and PEG. 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 diff -completed PO vancomycin via PEG tube Thrush/oral candidiasis -start fluconazoe x 2 weeks total -follow up LFT's DVT proph -lovenox 40
[2015-12-06] MEDS: INSULIN DETEMIR 100 UNITS/ML MDV SQ SCH (21:36)
[2015-12-07] MEDS: INSULIN (NOVOLOG) ASPART 100 UNITS/ML 10ML VIAL SQ SCH ×3 (06:21→17:36)
[2015-12-07] MEDS: AMINO ACIDS/PROTEIN HYDROLYS SUGAR-FREE 30 ML PACKET PO SCH ×2 (08:19→17:36)
[2015-12-07 08:54] LABS: ALBUMIN 3.2 g/dl (3.4-5.0); ANION GAP 11 (8-16); BILIRUBIN,TOTAL 0.2 mg/dL (0.2-1.0); CO2 30 mmol/L (21-32); CREATININE 0.8 mg/dL (0.7-1.3); GLUCOSE,RANDOM 140 mg/dL (74-106); SGOT/AST 12 U/L (15-37); SGPT/ALT 18 U/L (12-78); TOT PROT 7.8 g/dl (6.4-8.2)
[2015-12-07 08:55] LABS: ALK PHOS 95 U/L (45-117)
[2015-12-07] MEDS: FLUCONAZOLE 100 MG TABLET (UD) PO SCH (10:34)
[2015-12-07] MEDS: METOPROLOL TARTRATE 50 MG TABLET (FP) GT SCH ×2 (10:34→22:06)
[2015-12-07] MEDS: MULTIVITAMINS THERAPEUTIC GT SCH (10:35)
[2015-12-07] MEDS: amLODIPine BESYLATE 10 MG TABLET (FP) GT SCH (10:35)
[2015-12-07] MEDS: LISINOPRIL 20 MG TABLET (FP) GT SCH (10:35)
[2015-12-07] MEDS: LACTOBACILLUS ACIDOPHILUS 1 EACH TAB (FP) PO SCH (10:36)
[2015-12-07] MEDS: ENOXAPARIN NA (PORCINE) 40 MG/0.4 ML DISP.SYRIN SQ SCH (10:36)
[2015-12-07] MEDS: PANTOPRAZOLE SOD 40 MG SUSPENSION PACKET GT SCH (10:37)
--- NOTE | 2015-12-07 13:37 | PN ---
Progress Note (short form) - Note Progress Note: Subjective: PT seen and examined at bedside. Does not track with eyes today. Spontaneously waves with R arm Objective: Last Vital Signs Temp Pulse Resp BP Pulse Ox 98.6 F 105 H 24 141/66 95 12/07/15 06:00 12/07/15 10:29 12/07/15 10:29 12/07/15 10:29 12/07/15 10:15 PE: Neuro: open eyes, makes sniffing sounds Pulm: course BS anteriorly + trach CV: s1 s2 rrr no mrg Abd: PEG tube CDI +BS Ext: warm, spontaneous ROM CMP Sodium 144 mmol/L (136-145) 12/07/15 07:00 Potassium 3.6 mmol/L (3.5-5.1) 12/07/15 07:00 Chloride 103 mmol/L (98-107) 12/07/15 07:00 Carbon Dioxide 30 mmol/L (21-32) 12/07/15 07:00 Anion Gap 11 (8-16) 12/07/15 07:00 BUN 24 mg/dL (7-18) H D 12/07/15 07:00 Creatinine 0.8 mg/dL (0.7-1.3) 12/07/15 07:00 Creat Clearance w eGFR > 60 (>60) 12/07/15 07:00 Calcium 10.0 mg/dL (8.5-10.1) 12/07/15 07:00 Total Bilirubin 0.2 mg/dL (0.2-1.0) D 12/07/15 07:00 AST 12 U/L (15-37) L D 12/07/15 07:00 ALT 18 U/L (12-78) 12/07/15 07:00 Alkaline Phosphatase 95 U/L (45-117) 12/07/15 07:00 Total Protein 7.8 g/dl (6.4-8.2) 12/07/15 07:00 Albumin 3.2 g/dl (3.4-5.0) L 12/07/15 07:00 Current Medications Generic Name Dose Route Start Last Admin Trade Name Freq PRN Reason Stop Dose Admin Acetaminophen 650 mg 09/09/15 09:29 10/28/15 17:53 Tylenol Oral Solution - GT 650 mg Q6H PRN Administration FEVER Albuterol/Ipratropium 1 amp 12/02/15 14:23 12/04/15 19:44 Duoneb - NEB 1 amp Q4H PRN Administration SHORTNESS OF BREATH Amino Acids 30 ml 09/15/15 17:30 12/07/15 08:19 Prostat Sugar-Free Packet - PO 30 ml BID@0800,1730 [facility] Administration Amlodipine Besylate 10 mg 09/09/15 10:00 12/07/15 10:35 Norvasc - GT 10 mg DAILY [facility] Administration Enoxaparin Sodium 40 mg 12/06/15 10:00 12/07/15 10:36 Lovenox - SQ 40 mg DAILY [facility] Administration Fluconazole 100 mg 12/07/15 10:00 12/07/15 10:34 Diflucan - PO 100 mg DAILY [facility] Administration Guaifenesin 10 ml 12/02/15 17:59 12/06/15 17:23 Robitussin Dm - PO 10 ml Q6H PRN Administration COUGH Ibuprofen 200 mg 09/09/15 09:29 10/28/15 13:23 Motrin Oral Suspension - PO 200 mg Q6H PRN Administration FEVER Insulin Aspart 0 units 09/09/15 12:00 12/07/15 12:14 Novolog Vial SQ Not Given Q6HPO [facility] Protocol Insulin Detemir 28 units 09/09/15 22:00 12/06/15 21:36 Levemir Vial SQ 28 units HS [facility] Administration Lactobacillus Acidophilus 1 tab 11/08/15 18:30 12/07/15 10:36 Bacid - PO 1 tab DAILY [facility] Administration Lisinopril 40 mg 09/09/15 10:00 12/07/15 10:35 Prinivil - GT 40 mg DAILY [facility] Administration Metoprolol Tartrate 5 mg 09/09/15 09:29 Lopressor Injection - IVPB Q6H PRN HYPERTENSION Metoprolol Tartrate 150 mg 11/16/15 21:12 12/07/15 10:34 Lopressor - GT 150 mg BID [facility] Administration Multivitamins 5 ml 09/09/15 10:00 12/07/15 10:35 Thera-Plus - GT 5 ml DAILY [facility] Administration Pantoprazole Sodium 40 mg 09/09/15 10:00 12/07/15 10:37 Protonix Packets For Oral Suspension - GT 40 mg DAILY [facility] Administration Assessment: 75 year old male admitted on 06/26 with GI bleed, s/p Right hemicolectomyy, course complicated by acute CVA and respiratory failure s/p intubation, followed by tracheostomy and PEG. Plan: 1. 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 Fever d/t HAP - Completed 7 day course of vanco/zosyn 4. HTN - Cont amlodipine/lisinopril/metoprolol 5. C. diff - Completed PO vancomycin via PEG tube 6. Thrush/oral candidiasis - cont Fluconazoe x 2 weeks total (-) - Follow LFT's during treatment PPX: Lovenox 40mg daily FEN: Vital 1.5 @ 60 cc/hr with free water 45/hr CODE STATUS: DNR Assessment/Plan: 1-acute GI bleed, s/p colonoscopy and R hemicolectomy. no further bleed 2- HCAP: cont vanc and zosyn day no more fever vanco trough tomorrow am 3- Anoxic brain injury and CVA, s/p Trach 07/23. s/p PEG 3- HTN: cont meds . 4- DM : cont insulin 5- nutrition through PEG : at goal 60 cc/he of jevity 1.5 with free water 45/hr DNR
[2015-12-07] MEDS: INSULIN DETEMIR 100 UNITS/ML MDV SQ SCH (22:05)
[2015-12-08] MEDS: INSULIN (NOVOLOG) ASPART 100 UNITS/ML 10ML VIAL SQ SCH ×3 (06:28→12:40)
[2015-12-08] MEDS: AMINO ACIDS/PROTEIN HYDROLYS SUGAR-FREE 30 ML PACKET PO SCH ×2 (08:03→17:36)
[2015-12-08] MEDS: LACTOBACILLUS ACIDOPHILUS 1 EACH TAB (FP) PO SCH (10:26)
[2015-12-08] MEDS: METOPROLOL TARTRATE 50 MG TABLET (FP) GT SCH ×2 (10:27→22:18)
[2015-12-08] MEDS: FLUCONAZOLE 100 MG TABLET (UD) PO SCH (10:27)
[2015-12-08] MEDS: ENOXAPARIN NA (PORCINE) 40 MG/0.4 ML DISP.SYRIN SQ SCH (10:28)
[2015-12-08] MEDS: amLODIPine BESYLATE 10 MG TABLET (FP) GT SCH (10:28)
[2015-12-08] MEDS: PANTOPRAZOLE SOD 40 MG SUSPENSION PACKET GT SCH (10:29)
[2015-12-08] MEDS: MULTIVITAMINS THERAPEUTIC GT SCH (10:29)
[2015-12-08] MEDS: LISINOPRIL 20 MG TABLET (FP) GT SCH (13:25)
[2015-12-08] MEDS: ALBUTEROL SO4 2.5/IPRATROPIUM 0.5 INH SOL 3 ML VIAL.NEB. NEB PRN ×2 (17:30→23:00)
[2015-12-08] MEDS: INSULIN SLIDING SCALE (NOVOLOG) 1 VIAL SQ SCH (17:36)
--- NOTE | 2015-12-08 17:39 | PN ---
Progress Note (short form) - Note Progress Note: Subjective: PT seen and examined at bedside. No acute changes. Family member at bedside. Objective: Last Vital Signs Temp Pulse Resp BP Pulse Ox 98.2 F 89 20 138/87 98 12/08/15 13:40 12/08/15 13:40 12/08/15 13:40 12/08/15 13:40 12/08/15 12:19 PE: Neuro: open eyes Pulm: course BS anteriorly + trach CV: s1 s2 rrr no mrg Abd: PEG tube CDI +BS Ext: warm, spontaneous ROM Current Medications Generic Name Dose Route Start Last Admin Trade Name Freq PRN Reason Stop Dose Admin Acetaminophen 650 mg 12/08/15 13:53 Tylenol Oral Solution - GT Q6H PRN FEVER Albuterol/Ipratropium 1 amp 12/02/15 14:23 12/04/15 19:44 Duoneb - NEB 1 amp Q4H PRN Administration SHORTNESS OF BREATH Amino Acids 30 ml 12/08/15 17:30 12/08/15 17:36 Prostat Sugar-Free Packet - PO 30 ml BID@0800,1730 [facility] Administration Amlodipine Besylate 10 mg 12/09/15 10:00 Norvasc - GT DAILY [facility] Enoxaparin Sodium 40 mg 12/06/15 10:00 12/08/15 10:28 Lovenox - SQ 40 mg DAILY [facility] Administration Fluconazole 100 mg 12/07/15 10:00 12/08/15 10:27 Diflucan - PO 100 mg DAILY [facility] Administration Guaifenesin 10 ml 12/02/15 17:59 12/06/15 17:23 Robitussin Dm - PO 10 ml Q6H PRN Administration COUGH Ibuprofen 200 mg 12/08/15 13:57 Motrin Oral Suspension - PO Q6H PRN FEVER Insulin Aspart 1 vial 12/08/15 18:00 12/08/15 17:36 Novolog Vial Sliding Scale - SQ 2 units Q6HPO [facility] Administration Protocol Insulin Detemir 28 units 12/08/15 22:00 Levemir Vial SQ HS [facility] Lactobacillus Acidophilus 1 tab 12/09/15 10:00 Bacid - PO DAILY [facility] Lisinopril 40 mg 12/09/15 10:00 Prinivil - GT DAILY [facility] Metoprolol Tartrate 5 mg 12/08/15 14:02 Lopressor Injection - IVPB Q6H PRN HYPERTENSION Metoprolol Tartrate 150 mg 12/08/15 22:00 Lopressor - GT BID [facility] Multivitamins 5 ml 12/09/15 10:00 Thera-Plus - GT DAILY [facility] Pantoprazole Sodium 40 mg 12/09/15 10:00 Protonix Packets For Oral Suspension - GT DAILY [facility] Assessment: 75 year old male admitted on 06/26 with GI bleed, s/p Right hemicolectomyy, course complicated by acute CVA and respiratory failure s/p intubation, followed by tracheostomy and PEG. Plan: 1. 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 Fever d/t HAP - Completed 7 day course of vanco/zosyn 4. HTN - Cont amlodipine/lisinopril/metoprolol 5. C. diff - Completed PO vancomycin via PEG tube 6. Thrush/oral candidiasis - Cont Fluconazoe x 2 weeks total (12/06-) - Follow LFT's during treatment PPX: Lovenox 40mg daily FEN: Vital 1.5 @ 60 cc/hr with free water 45/hr CODE STATUS: DNR
[2015-12-08] MEDS: INSULIN DETEMIR 100 UNITS/ML MDV SQ SCH (22:21)
[2015-12-09] MEDS: INSULIN SLIDING SCALE (NOVOLOG) 1 VIAL SQ SCH ×4 (00:14→17:30)
[2015-12-09] MEDS: AMINO ACIDS/PROTEIN HYDROLYS SUGAR-FREE 30 ML PACKET PO SCH ×2 (08:20→17:30)
[2015-12-09 08:28] LABS: BASOPHIL 1.2 % (0-2.0); EOSINOPHIL 5.3 % (0-4.5); MCH 28.5 pg (25.7-33.7); MCHC 33.2 g/dl (32.0-35.9); MEAN CELL VOLUME 85.7 fl (80-96); MEAN PLT VOLUME 7.8 fl (7.5-11.1); NEUTROPHILS 65.6 % (42.8-82.8); PLATELET COUNT 271 K/MM3 (134-434); RDW 16.6 % (11.9-15.9); WHITE BLOOD COUNT 9.4 K/mm3 (4.0-10.0)
[2015-12-09 08:58] LABS: ALBUMIN 3.6 g/dl (3.4-5.0); ANION GAP 8 (8-16); CALCIUM 10.6 mg/dL (8.5-10.1); CO2 31 mmol/L (21-32); CREATININE 0.9 mg/dL (0.7-1.3); GLUCOSE,RANDOM 96 mg/dL (74-106); SGOT/AST 13 U/L (15-37); SGPT/ALT 17 U/L (12-78)
[2015-12-09 09:00] LABS: ALK PHOS 87 U/L (45-117); BILIRUBIN,TOTAL 0.3 mg/dL (0.2-1.0); TOT PROT 8.2 g/dl (6.4-8.2)
[2015-12-09] MEDS: ALBUTEROL SO4 2.5/IPRATROPIUM 0.5 INH SOL 3 ML VIAL.NEB. NEB PRN (10:05)
[2015-12-09] MEDS: LACTOBACILLUS ACIDOPHILUS 1 EACH TAB (FP) PO SCH (10:06)
[2015-12-09] MEDS: FLUCONAZOLE 100 MG TABLET (UD) PO SCH (10:07)
[2015-12-09] MEDS: METOPROLOL TARTRATE 50 MG TABLET (FP) GT SCH ×2 (10:08→22:18)
[2015-12-09] MEDS: ENOXAPARIN NA (PORCINE) 40 MG/0.4 ML DISP.SYRIN SQ SCH (10:09)
[2015-12-09] MEDS: amLODIPine BESYLATE 10 MG TABLET (FP) GT SCH (10:10)
[2015-12-09] MEDS: MULTIVITAMINS THERAPEUTIC GT SCH (10:11)
[2015-12-09] MEDS: LISINOPRIL 20 MG TABLET (FP) GT SCH (10:11)
[2015-12-09] MEDS: PANTOPRAZOLE SOD 40 MG SUSPENSION PACKET GT SCH (10:11)
--- NOTE | 2015-12-09 12:25 | PN ---
Progress Note (short form) - Note Progress Note: Subjective: Pt seen and examined at bedside. Current Medications Generic Name Dose Route Start Last Admin Trade Name Freq PRN Reason Stop Dose Admin Acetaminophen 650 mg 12/08/15 13:53 Tylenol Oral Solution - GT Q6H PRN FEVER Albuterol/Ipratropium 1 amp 12/02/15 14:23 12/09/15 10:05 Duoneb - NEB 1 amp Q4H PRN Administration SHORTNESS OF BREATH Amino Acids 30 ml 12/08/15 17:30 12/09/15 08:20 Prostat Sugar-Free Packet - PO 30 ml BID@0800,1730 KWAKU Administration Amlodipine Besylate 10 mg 12/09/15 10:00 12/09/15 10:10 Norvasc - GT 10 mg DAILY KWAKU Administration Enoxaparin Sodium 40 mg 12/06/15 10:00 12/09/15 10:09 Lovenox - SQ 40 mg DAILY KWAKU Administration Fluconazole 100 mg 12/07/15 10:00 12/09/15 10:07 Diflucan - PO 100 mg DAILY KWAKU Administration Guaifenesin 10 ml 12/02/15 17:59 12/06/15 17:23 Robitussin Dm - PO 10 ml Q6H PRN Administration COUGH Ibuprofen 200 mg 12/08/15 13:57 Motrin Oral Suspension - PO Q6H PRN FEVER Insulin Aspart 1 vial 12/08/15 18:00 12/09/15 11:59 Novolog Vial Sliding Scale - SQ 2 units Q6HPO KWAKU Administration Protocol Insulin Detemir 28 units 12/08/15 22:00 12/08/15 22:21 Levemir Vial SQ 28 units HS KWAKU Administration Lactobacillus Acidophilus 1 tab 12/09/15 10:00 12/09/15 10:06 Bacid - PO 1 tab DAILY KWAKU Administration Lisinopril 40 mg 12/09/15 10:00 12/09/15 10:11 Prinivil - GT 40 mg DAILY KWAKU Administration Metoprolol Tartrate 5 mg 12/08/15 14:02 Lopressor Injection - IVPB Q6H PRN HYPERTENSION Metoprolol Tartrate 150 mg 12/08/15 22:00 12/09/15 10:08 Lopressor - GT 150 mg BID KWAKU Administration Multivitamins 5 ml 12/09/15 10:00 12/09/15 10:11 Thera-Plus - GT 5 ml DAILY KWAKU Administration Pantoprazole Sodium 40 mg 12/09/15 10:00 12/09/15 10:11 Protonix Packets For Oral Suspension - GT 40 mg DAILY KWAKU Administration Objective: Vital Signs Period Temp Pulse Resp BP Sys/Santiago Pulse Ox Last 24 Hr 98.2 F-98.6 F 66-119 20-20 137-150/76-94 97-98 Physical Exam: General: No acute distress Neuro: spontaneous eye movement, non verbal Pulm: Tach collar, clear anteriorly, minimal yellow secretions CV: RRR, S1S2 Abd: Soft, non-tender, non-distended. Normoactive bowel sounds. Peg tube c/d/i Ext: Warm, well-perfused. 2+ DP/PT bilaterally CBCD WBC 9.4 K/mm3 (4.0-10.0) 12/09/15 08:10 RBC 3.66 M/mm3 (4.00-5.60) L 12/09/15 08:10 Hgb 10.4 GM/dL (11.7-16.9) L 12/09/15 08:10 Hct 31.4 % (35.4-49) L 12/09/15 08:10 MCV 85.7 fl (80-96) 12/09/15 08:10 MCHC 33.2 g/dl (32.0-35.9) 12/09/15 08:10 RDW 16.6 % (11.9-15.9) H 12/09/15 08:10 Plt Count 271 K/MM3 (134-434) 12/09/15 08:10 MPV 7.8 fl (7.5-11.1) 12/09/15 08:10 CMP Sodium 144 mmol/L (136-145) 12/09/15 08:10 Potassium 3.7 mmol/L (3.5-5.1) 12/09/15 08:10 Chloride 105 mmol/L (98-107) 12/09/15 08:10 Carbon Dioxide 31 mmol/L (21-32) 12/09/15 08:10 Anion Gap 8 (8-16) 12/09/15 08:10 BUN 25 mg/dL (7-18) H 12/09/15 08:10 Creatinine 0.9 mg/dL (0.7-1.3) 12/09/15 08:10 Creat Clearance w eGFR > 60 (>60) 12/09/15 08:10 Random Glucose 96 mg/dL (74-106) D 12/09/15 08:10 Calcium 10.6 mg/dL (8.5-10.1) H 12/09/15 08:10 Total Bilirubin 0.3 mg/dL (0.2-1.0) D 12/09/15 08:10 AST 13 U/L (15-37) L 12/09/15 08:10 ALT 17 U/L (12-78) 12/09/15 08:10 Alkaline Phosphatase 87 U/L (45-117) 12/09/15 08:10 Total Protein 8.2 g/dl (6.4-8.2) 12/09/15 08:10 Albumin 3.6 g/dl (3.4-5.0) 12/09/15 08:10 CARDIAC ENZYMES Creatine Kinase 62 IU/L (38-174) 06/28/15 09:35 Troponin I 0.07 ng/ml (0.03-0.5) D 07/09/15 05:00 Assessment: 75 year old male with PMHx of HTN, IDDM, inguinal hernia who presented to the ED with diverticular bleed s/p Righ hemicolectomy with 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 Plan: 1. Pneumonia: HAP - Completed 7 day course of IV Zosyn and Vancomycin 2. Anoxic brain injury s/p brainstem CVAs - Mental status unchanged 3. Respiratory failure secondary to anoxic brain injury - Cont trach collar - Will not need to be discharged to a vent facility - Albuterol neb PRN 4. HTN - Continue lisinopril, metoprolol, amlodipine 5. Multiple pressure ulcers - Stage III sacrum healing - Stage II left ear healing - Turn and position q2h 6. IDDM - Levemir 28 units HS - ISS BGM ACHS 7. F/E/N: - Tube feeds: Vital 1.5 @60ml/hr 8. Prophylaxis: - SCDs bilaterally - Lovenox - PT for passive ROM CODE STATUS: DNR CODE STATUS: DNR
[2015-12-09] MEDS: INSULIN DETEMIR 100 UNITS/ML MDV SQ SCH (22:31)
[2015-12-10] MEDS: INSULIN SLIDING SCALE (NOVOLOG) 1 VIAL SQ SCH ×4 (00:35→17:45)
[2015-12-10] MEDS: ENOXAPARIN NA (PORCINE) 40 MG/0.4 ML DISP.SYRIN SQ SCH (11:22)
[2015-12-10] MEDS: LACTOBACILLUS ACIDOPHILUS 1 EACH TAB (FP) PO SCH (11:22)
[2015-12-10] MEDS: PANTOPRAZOLE SOD 40 MG SUSPENSION PACKET GT SCH (11:23)
[2015-12-10] MEDS: amLODIPine BESYLATE 10 MG TABLET (FP) GT SCH (11:23)
[2015-12-10] MEDS: FLUCONAZOLE 100 MG TABLET (UD) PO SCH (11:23)
[2015-12-10] MEDS: METOPROLOL TARTRATE 50 MG TABLET (FP) GT SCH ×2 (11:23→21:14)
[2015-12-10] MEDS: LISINOPRIL 20 MG TABLET (FP) GT SCH (11:23)
[2015-12-10] MEDS: AMINO ACIDS/PROTEIN HYDROLYS SUGAR-FREE 30 ML PACKET PO SCH ×2 (11:23→17:45)
[2015-12-10] MEDS: MULTIVITAMINS THERAPEUTIC GT SCH (11:24)
[2015-12-10] MEDS: ALBUTEROL SO4 2.5/IPRATROPIUM 0.5 INH SOL 3 ML VIAL.NEB. NEB PRN (21:12)
[2015-12-10] MEDS: INSULIN DETEMIR 100 UNITS/ML MDV SQ SCH (21:15)
[2015-12-11] MEDS: INSULIN SLIDING SCALE (NOVOLOG) 1 VIAL SQ SCH ×4 (00:24→18:09)
--- NOTE | 2015-12-11 08:56 | PN ---
Progress Note (short form) - Note Progress Note: Subjective: PT seen and examined at bedside. No acute changes. Objective: Last Vital Signs Temp Pulse Resp BP Pulse Ox 98.8 F 97 H 18 167/87 96 12/11/15 06:10 12/11/15 06:10 12/11/15 06:10 12/11/15 06:10 12/10/15 20:08 PE: Neuro: non verbal, spontaneous U/L extremity movement Pulm: Trach placed, scattered rhonchi, + secretions w cough CV: s1 s2 RRR no mrg Abd: PEG tube placed CDI +BS, soft Ext: warm, +DP, no edema Current Medications Generic Name Dose Route Start Last Admin Trade Name Freq PRN Reason Stop Dose Admin Acetaminophen 650 mg 12/08/15 13:53 Tylenol Oral Solution - GT Q6H PRN FEVER Albuterol/Ipratropium 1 amp 12/02/15 14:23 12/10/15 21:12 Duoneb - NEB 1 amp Q4H PRN Administration SHORTNESS OF BREATH Amino Acids 30 ml 12/08/15 17:30 12/11/15 09:14 Prostat Sugar-Free Packet - PO 30 ml BID@0800,1730 KWAKU Administration Amlodipine Besylate 10 mg 12/09/15 10:00 12/11/15 09:13 Norvasc - GT 10 mg DAILY KWAKU Administration Enoxaparin Sodium 40 mg 12/06/15 10:00 12/11/15 09:15 Lovenox - SQ 40 mg DAILY KWAKU Administration Fluconazole 100 mg 12/07/15 10:00 12/11/15 09:13 Diflucan - PO 100 mg DAILY KWAKU Administration Guaifenesin 10 ml 12/02/15 17:59 12/06/15 17:23 Robitussin Dm - PO 10 ml Q6H PRN Administration COUGH Ibuprofen 200 mg 12/08/15 13:57 Motrin Oral Suspension - PO Q6H PRN FEVER Insulin Aspart 1 vial 12/08/15 18:00 12/11/15 12:19 Novolog Vial Sliding Scale - SQ Not Given Q6HPO [facility] Protocol Insulin Detemir 28 units 12/08/15 22:00 12/10/15 21:15 Levemir Vial SQ 28 units HS KWAKU Administration Lactobacillus Acidophilus 1 tab 12/09/15 10:00 12/11/15 09:15 Bacid - PO 1 tab DAILY KWAKU Administration Lisinopril 40 mg 12/09/15 10:00 12/11/15 09:14 Prinivil - GT 40 mg DAILY KWAKU Administration Metoprolol Tartrate 5 mg 12/08/15 14:02 Lopressor Injection - IVPB Q6H PRN HYPERTENSION Metoprolol Tartrate 150 mg 12/08/15 22:00 12/11/15 09:14 Lopressor - GT 150 mg BID KWAKU Administration Multivitamins 5 ml 12/09/15 10:00 12/11/15 09:15 Thera-Plus - GT 5 ml DAILY KWAKU Administration Pantoprazole Sodium 40 mg 12/09/15 10:00 12/11/15 09:15 Protonix Packets For Oral Suspension - GT 40 mg DAILY KWAKU Administration Assessment: 75 year old male with PMHx of HTN, IDDM, inguinal hernia who presented to the ED with diverticular bleed s/p Righ hemicolectomy with 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 Plan: 1. Anoxic brain injury s/p brainstem CVAs - Mental status unchanged 2. Respiratory failure secondary to anoxic brain injury - Cont trach collar - Add atrovent PRN for secretions - Albuterol neb PRN 3. HTN - Cont lisinopril, metoprolol, amlodipine 4. Multiple pressure ulcers - Stage III sacrum healing - Stage II left ear healing - Turn and position q2h 5. IDDM - Levemir 28 units HS - ISS BGM ACHS 6. HAP - S/p 7 day course Zosyn and Vancomycin 12/01/15 7. FEN: - Tube feeds: Vital 1.5 @60ml/hr 8. Prophylaxis: - SCDs bilaterally/Lovenox - PT for passive ROM CODE STATUS: DNR HYPERTENSION Metoprolol Tartrate 150 mg 12/08/15 22:00 12/10/15 21:14 Lopressor - GT 150 mg BID KWAKU Administration Multivitamins 5 ml 12/09/15 10:00 12/10/15 11:24 Thera-Plus - GT 5 ml DAILY KWAKU Administration Pantoprazole Sodium 40 mg 12/09/15 10:00 12/10/15 11:23 Protonix Packets For Oral Suspension - GT 40 mg DAILY KWAKU Administration Assessment: 75 year old male with PMHx of HTN, IDDM, inguinal hernia who presented to the ED with diverticular bleed s/p Righ hemicolectomy with 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 Plan: 1. Anoxic brain injury s/p brainstem CVAs - Mental status unchanged 2. Respiratory failure secondary to anoxic brain injury - Cont trach collar - Albuterol neb PRN 3. HTN - Cont lisinopril, metoprolol, amlodipine 4. Multiple pressure ulcers - Stage III sacrum healing - Stage II left ear healing - Turn and position q2h 5. IDDM - Levemir 28 units HS - ISS BGM ACHS 6. HAP - S/p 7 day course Zosyn and Vancomycin 12/01/15 7. FEN: - Tube feeds: Vital 1.5 @60ml/hr 8. Prophylaxis: - SCDs bilaterally/Lovenox - PT for passive ROM CODE STATUS: DNR CODE STATUS: DNR CODE STATUS: DNR
[2015-12-11] MEDS: amLODIPine BESYLATE 10 MG TABLET (FP) GT SCH (09:13)
[2015-12-11] MEDS: FLUCONAZOLE 100 MG TABLET (UD) PO SCH (09:13)
[2015-12-11] MEDS: LISINOPRIL 20 MG TABLET (FP) GT SCH (09:14)
[2015-12-11] MEDS: AMINO ACIDS/PROTEIN HYDROLYS SUGAR-FREE 30 ML PACKET PO SCH ×2 (09:14→18:09)
[2015-12-11] MEDS: METOPROLOL TARTRATE 50 MG TABLET (FP) GT SCH ×2 (09:14→22:01)
[2015-12-11] MEDS: LACTOBACILLUS ACIDOPHILUS 1 EACH TAB (FP) PO SCH (09:15)
[2015-12-11] MEDS: ENOXAPARIN NA (PORCINE) 40 MG/0.4 ML DISP.SYRIN SQ SCH (09:15)
[2015-12-11] MEDS: MULTIVITAMINS THERAPEUTIC GT SCH (09:15)
[2015-12-11] MEDS: PANTOPRAZOLE SOD 40 MG SUSPENSION PACKET GT SCH (09:15)
[2015-12-11] MEDS: INSULIN DETEMIR 100 UNITS/ML MDV SQ SCH (22:00)
[2015-12-12] MEDS: INSULIN SLIDING SCALE (NOVOLOG) 1 VIAL SQ SCH ×4 (00:06→17:04)
[2015-12-12] MEDS: MULTIVITAMINS THERAPEUTIC GT SCH (09:14)
[2015-12-12] MEDS: PANTOPRAZOLE SOD 40 MG SUSPENSION PACKET GT SCH (09:14)
[2015-12-12] MEDS: METOPROLOL TARTRATE 50 MG TABLET (FP) GT SCH ×2 (09:14→22:36)
[2015-12-12] MEDS: AMINO ACIDS/PROTEIN HYDROLYS SUGAR-FREE 30 ML PACKET PO SCH ×2 (09:15→16:56)
[2015-12-12] MEDS: LACTOBACILLUS ACIDOPHILUS 1 EACH TAB (FP) PO SCH (09:15)
[2015-12-12] MEDS: ENOXAPARIN NA (PORCINE) 40 MG/0.4 ML DISP.SYRIN SQ SCH (09:16)
[2015-12-12] MEDS: amLODIPine BESYLATE 10 MG TABLET (FP) GT SCH (09:16)
[2015-12-12] MEDS: FLUCONAZOLE 100 MG TABLET (UD) PO SCH (09:16)
[2015-12-12] MEDS: LISINOPRIL 20 MG TABLET (FP) GT SCH (09:17)
--- NOTE | 2015-12-12 13:11 | PN ---
Progress Note (short form) - Note Progress Note: Subjective: PT seen and examined at bedside. No acute changes. Objective: Last Vital Signs Temp Pulse Resp BP Pulse Ox 98.1 F 78 22 140/82 98 12/12/15 10:00 12/12/15 11:21 12/12/15 10:00 12/12/15 10:00 12/12/15 11:21 PE: Neuro: non verbal, spontaneous U/L extremity movement Pulm: Trach placed, + secretions clear CV: s1 s2 RRR no mrg Abd: PEG tube placed CDI +BS, soft Ext: warm, +DP, no edema Current Medications Generic Name Dose Route Start Last Admin Trade Name Freq PRN Reason Stop Dose Admin Acetaminophen 650 mg 12/08/15 13:53 Tylenol Oral Solution - GT Q6H PRN FEVER Albuterol/Ipratropium 1 amp 12/02/15 14:23 12/10/15 21:12 Duoneb - NEB 1 amp Q4H PRN Administration SHORTNESS OF BREATH Amino Acids 30 ml 12/08/15 17:30 12/12/15 09:15 Prostat Sugar-Free Packet - PO 30 ml BID@0800,1730 KWAKU Administration Amlodipine Besylate 10 mg 12/09/15 10:00 12/12/15 09:16 Norvasc - GT 10 mg DAILY KWAKU Administration Enoxaparin Sodium 40 mg 12/06/15 10:00 12/12/15 09:16 Lovenox - SQ 40 mg DAILY KWAKU Administration Fluconazole 100 mg 12/07/15 10:00 12/12/15 09:16 Diflucan - PO 100 mg DAILY KWAKU Administration Guaifenesin 10 ml 12/02/15 17:59 12/06/15 17:23 Robitussin Dm - PO 10 ml Q6H PRN Administration COUGH Ibuprofen 200 mg 12/08/15 13:57 Motrin Oral Suspension - PO Q6H PRN FEVER Insulin Aspart 1 vial 12/08/15 18:00 12/12/15 12:14 Novolog Vial Sliding Scale - SQ 2 units Q6HPO KWAKU Administration Protocol Insulin Detemir 28 units 12/08/15 22:00 12/11/15 22:00 Levemir Vial SQ 28 units HS KWAKU Administration Lactobacillus Acidophilus 1 tab 12/09/15 10:00 12/12/15 09:15 Bacid - PO 1 tab DAILY KWAKU Administration Lisinopril 40 mg 12/09/15 10:00 12/12/15 09:17 Prinivil - GT 40 mg DAILY KWAKU Administration Metoprolol Tartrate 5 mg 12/08/15 14:02 Lopressor Injection - IVPB Q6H PRN HYPERTENSION Metoprolol Tartrate 150 mg 12/08/15 22:00 12/12/15 09:14 Lopressor - GT 150 mg BID KWAKU Administration Multivitamins 5 ml 12/09/15 10:00 12/12/15 09:14 Thera-Plus - GT 5 ml DAILY KWAKU Administration Pantoprazole Sodium 40 mg 12/09/15 10:00 12/12/15 09:14 Protonix Packets For Oral Suspension - GT 40 mg DAILY KWAKU Administration Assessment: 75 year old male with PMHx of HTN, IDDM, inguinal hernia who presented to the ED with diverticular bleed s/p Righ hemicolectomy with 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 Plan: 1. Anoxic brain injury s/p brainstem CVAs - Mental status unchanged 2. Respiratory failure secondary to anoxic brain injury - Cont trach collar - Cont duonebs PRN - Albuterol neb PRN 3. HTN - Cont lisinopril, metoprolol, amlodipine 4. Multiple pressure ulcers - Stage III sacrum healing - Stage II left ear healing - Turn and position q2h 5. IDDM - Levemir 28 units HS - ISS BGM ACHS 6. HAP - S/p 7 day course Zosyn and Vancomycin 12/01/15 7. FEN: - Tube feeds: Vital 1.5 @60ml/hr 8. Prophylaxis: - SCDs bilaterally/Lovenox - PT for passive ROM CODE STATUS: DNR
[2015-12-12] MEDS: INSULIN DETEMIR 100 UNITS/ML MDV SQ SCH (22:35)
[2015-12-13] MEDS: INSULIN SLIDING SCALE (NOVOLOG) 1 VIAL SQ SCH ×4 (00:15→17:28)
[2015-12-13] MEDS: AMINO ACIDS/PROTEIN HYDROLYS SUGAR-FREE 30 ML PACKET PO SCH ×2 (08:27→17:28)
[2015-12-13] MEDS: ENOXAPARIN NA (PORCINE) 40 MG/0.4 ML DISP.SYRIN SQ SCH (09:17)
[2015-12-13] MEDS: METOPROLOL TARTRATE 50 MG TABLET (FP) GT SCH ×2 (09:18→22:26)
[2015-12-13] MEDS: LACTOBACILLUS ACIDOPHILUS 1 EACH TAB (FP) PO SCH (09:18)
[2015-12-13] MEDS: MULTIVITAMINS THERAPEUTIC GT SCH (09:18)
[2015-12-13] MEDS: amLODIPine BESYLATE 10 MG TABLET (FP) GT SCH (09:18)
[2015-12-13] MEDS: PANTOPRAZOLE SOD 40 MG SUSPENSION PACKET GT SCH (09:18)
[2015-12-13] MEDS: FLUCONAZOLE 100 MG TABLET (UD) PO SCH (09:18)
[2015-12-13] MEDS: LISINOPRIL 20 MG TABLET (FP) GT SCH (09:23)
--- NOTE | 2015-12-13 10:35 | PN ---
Progress Note (short form) - Note Progress Note: Subjective: PT seen and examined at bedside. Appears comfortable. Objective: Last Vital Signs Temp Pulse Resp BP Pulse Ox 98.9 F 100 H 18 133/85 99 12/13/15 06:00 12/13/15 06:00 12/13/15 06:00 12/13/15 06:00 12/12/15 21:00 PE: Neuro: non verbal, spontaneous U/L extremity movement Pulm: Trach placed CV: s1 s2 RRR no mrg Abd: PEG tube placed CDI +BS, soft Ext: warm, +DP, no edema, heel ulcers dressed Current Medications Generic Name Dose Route Start Last Admin Trade Name Freq PRN Reason Stop Dose Admin Acetaminophen 650 mg 12/08/15 13:53 Tylenol Oral Solution - GT Q6H PRN FEVER Albuterol/Ipratropium 1 amp 12/02/15 14:23 12/10/15 21:12 Duoneb - NEB 1 amp Q4H PRN Administration SHORTNESS OF BREATH Amino Acids 30 ml 12/08/15 17:30 12/13/15 08:27 Prostat Sugar-Free Packet - PO 30 ml BID@0800,1730 KWAKU Administration Amlodipine Besylate 10 mg 12/09/15 10:00 12/13/15 09:18 Norvasc - GT 10 mg DAILY KWAKU Administration Fluconazole 100 mg 12/07/15 10:00 12/13/15 09:18 Diflucan - PO 100 mg DAILY KWAKU Administration Guaifenesin 10 ml 12/02/15 17:59 12/06/15 17:23 Robitussin Dm - PO 10 ml Q6H PRN Administration COUGH Ibuprofen 200 mg 12/08/15 13:57 Motrin Oral Suspension - PO Q6H PRN FEVER Insulin Aspart 1 vial 12/08/15 18:00 12/13/15 05:56 Novolog Vial Sliding Scale - SQ Not Given Q6HPO COUNTS INCLUDE 234 BEDS AT [facility] Protocol Insulin Detemir 28 units 12/08/15 22:00 12/12/15 22:35 Levemir Vial SQ 28 units HS KWAKU Administration Lactobacillus Acidophilus 1 tab 12/09/15 10:00 12/13/15 09:18 Bacid - PO 1 tab DAILY KWAKU Administration Lisinopril 40 mg 12/09/15 10:00 12/13/15 09:23 Prinivil - GT 40 mg DAILY KWAKU Administration Metoprolol Tartrate 5 mg 12/08/15 14:02 Lopressor Injection - IVPB Q6H PRN HYPERTENSION Metoprolol Tartrate 150 mg 12/08/15 22:00 12/13/15 09:18 Lopressor - GT 150 mg BID KWAKU Administration Multivitamins 5 ml 12/09/15 10:00 12/13/15 09:18 Thera-Plus - GT 5 ml DAILY KWAKU Administration Pantoprazole Sodium 40 mg 12/09/15 10:00 12/13/15 09:18 Protonix Packets For Oral Suspension - GT 40 mg DAILY KWAKU Administration Assessment: 75 year old male with PMHx of HTN, IDDM, inguinal hernia who presented to the ED with diverticular bleed s/p Righ hemicolectomy with 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 PT developed HCAP and completed 7 days course of vanc/zosyn on 12/01/15. Plan: 1. Anoxic brain injury s/p brainstem CVAs - Mental status unchanged 2. Respiratory failure secondary to anoxic brain injury - Cont trach collar - Cont duonebs PRN - Albuterol neb PRN 3. HTN - Cont lisinopril, metoprolol, amlodipine 4. Multiple pressure ulcers - Stage III sacrum healing - Stage II left ear healing - Turn and position q2h 5. IDDM - Levemir 28 units HS - ISS BGM ACHS 6. FEN: - Tube feeds: Vital 1.5 @60ml/hr 7. Prophylaxis: - SCDs bilaterally/Lovenox - PT for passive ROM CODE STATUS: DNR
[2015-12-13] MEDS: INSULIN DETEMIR 100 UNITS/ML MDV SQ SCH (22:27)
[2015-12-14] MEDS: INSULIN SLIDING SCALE (NOVOLOG) 1 VIAL SQ SCH ×5 (00:05→23:19)
[2015-12-14] MEDS: AMINO ACIDS/PROTEIN HYDROLYS SUGAR-FREE 30 ML PACKET PO SCH ×2 (08:40→18:24)
[2015-12-14] MEDS: PANTOPRAZOLE SOD 40 MG SUSPENSION PACKET GT SCH (09:41)
[2015-12-14] MEDS: MULTIVITAMINS THERAPEUTIC GT SCH (09:41)
[2015-12-14] MEDS: LACTOBACILLUS ACIDOPHILUS 1 EACH TAB (FP) PO SCH (09:42)
[2015-12-14] MEDS: amLODIPine BESYLATE 10 MG TABLET (FP) GT SCH (09:42)
--- NOTE | 2015-12-14 10:56 | PN ---
Progress Note (short form) - Note Progress Note: Subjective: PT seen and examined at bedside. Sleeping, no acute distress. Objective: Last Vital Signs Temp Pulse Resp BP Pulse Ox 97.7 F 102 H 20 165/97 98 12/14/15 06:00 12/14/15 06:00 12/14/15 06:00 12/14/15 06:00 12/13/15 21:00 PE: Neuro: non verbal, spontaneous U/L extremity movement Pulm: Trach placed, scattered crackles CV: s1 s2 RRR no mrg Abd: PEG tube placed CDI +BS, soft Ext: warm, +DP, no edema, heel ulcers dressed Current Medications Generic Name Dose Route Start Last Admin Trade Name Freq PRN Reason Stop Dose Admin Acetaminophen 650 mg 12/08/15 13:53 Tylenol Oral Solution - GT Q6H PRN FEVER Albuterol/Ipratropium 1 amp 12/02/15 14:23 12/10/15 21:12 Duoneb - NEB 1 amp Q4H PRN Administration SHORTNESS OF BREATH Amino Acids 30 ml 12/08/15 17:30 12/14/15 08:40 Prostat Sugar-Free Packet - PO 30 ml BID@0800,1730 KWAKU Administration Amlodipine Besylate 10 mg 12/09/15 10:00 12/14/15 09:42 Norvasc - GT 10 mg DAILY KWAKU Administration Guaifenesin 10 ml 12/02/15 17:59 12/06/15 17:23 Robitussin Dm - PO 10 ml Q6H PRN Administration COUGH Ibuprofen 200 mg 12/08/15 13:57 Motrin Oral Suspension - PO Q6H PRN FEVER Insulin Aspart 1 vial 12/08/15 18:00 12/14/15 06:14 Novolog Vial Sliding Scale - SQ Not Given Q6HPO [facility] Protocol Insulin Detemir 28 units 12/08/15 22:00 12/13/15 22:27 Levemir Vial SQ 28 units HS KWAKU Administration Lactobacillus Acidophilus 1 tab 12/09/15 10:00 12/14/15 09:42 Bacid - PO 1 tab DAILY KWAKU Administration Lisinopril 40 mg 12/09/15 10:00 12/13/15 09:23 Prinivil - GT 40 mg DAILY KWAKU Administration Metoprolol Tartrate 5 mg 02/10/16 14:02 Lopressor Injection - IVPB Q6H PRN HYPERTENSION Metoprolol Tartrate 150 mg 12/08/15 22:00 12/13/15 22:26 Lopressor - GT 150 mg BID KWAKU Administration Multivitamins 5 ml 12/09/15 10:00 12/14/15 09:41 Thera-Plus - GT 5 ml DAILY KWAKU Administration Pantoprazole Sodium 40 mg 12/09/15 10:00 12/14/15 09:41 Protonix Packets For Oral Suspension - GT 40 mg DAILY KWAKU Administration Assessment: 75 year old male with PMHx of HTN, IDDM, inguinal hernia who presented to the ED with diverticular bleed s/p Righ hemicolectomy with 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 PT developed HCAP and completed 7 days course of vanc/zosyn on 12/01/15. Plan: 1. Anoxic brain injury s/p brainstem CVAs - Mental status unchanged 2. Respiratory failure secondary to anoxic brain injury - Cont trach collar - Cont duonebs PRN - Albuterol neb PRN 3. HTN - Cont lisinopril, metoprolol, amlodipine 4. Multiple pressure ulcers - Stage III sacrum healing - Stage II left ear healing - Turn and position q2h 5. IDDM - Levemir 28 units HS - ISS BGM ACHS 6. FEN: - Tube feeds: Vital 1.5 @60ml/hr 7. Prophylaxis: - SCDs bilaterally/Lovenox - PT for passive ROM CODE STATUS: DNR
[2015-12-14] MEDS: METOPROLOL TARTRATE 50 MG TABLET (FP) GT SCH ×2 (11:09→23:18)
[2015-12-14] MEDS: LISINOPRIL 20 MG TABLET (FP) GT SCH (11:10)
[2015-12-14] MEDS: FLUCONAZOLE 100 MG TABLET (UD) PO SCH (13:55)
[2015-12-14] MEDS: INSULIN DETEMIR 100 UNITS/ML MDV SQ SCH (23:18)
[2015-12-15] MEDS: INSULIN SLIDING SCALE (NOVOLOG) 1 VIAL SQ SCH ×4 (06:14→23:00)
[2015-12-15] MEDS: LACTOBACILLUS ACIDOPHILUS 1 EACH TAB (FP) PO SCH (09:59)
[2015-12-15] MEDS: PANTOPRAZOLE SOD 40 MG SUSPENSION PACKET GT SCH (09:59)
[2015-12-15] MEDS: AMINO ACIDS/PROTEIN HYDROLYS SUGAR-FREE 30 ML PACKET PO SCH ×2 (09:59→17:41)
[2015-12-15] MEDS: MULTIVITAMINS THERAPEUTIC GT SCH (10:00)
[2015-12-15] MEDS: amLODIPine BESYLATE 10 MG TABLET (FP) GT SCH (10:00)
[2015-12-15] MEDS: ACETAMINOPHEN 650 MG/20.3 ML ORAL SOLUTION (CUPS) GT PRN (10:01)
[2015-12-15] MEDS: guaiFENesin/D-METHORPHAN HB 10 ML UNIT-DOSE CUPS PO PRN (10:01)
[2015-12-15] MEDS: METOPROLOL TARTRATE 50 MG TABLET (FP) GT SCH ×2 (10:04→23:00)
[2015-12-15] MEDS: LISINOPRIL 20 MG TABLET (FP) GT SCH (10:04)
--- NOTE | 2015-12-15 11:15 | PN ---
Progress Note (short form) - Note Progress Note: Subjective: PT seen and examined at bedside. No acute overnight events. Objective: Last Vital Signs Temp Pulse Resp BP Pulse Ox 99.3 F 100 H 20 138/84 97 12/15/15 09:57 12/15/15 10:33 12/15/15 09:57 12/15/15 09:57 12/15/15 10:33 PE: Neuro: non verbal, spontaneous U/L extremity movement, opens eyes Pulm: Trach placed, clear anteriorly CV: s1 s2 RRR no mrg Abd: PEG tube placed CDI +BS, soft Ext: warm, +DP, no edema, heel ulcers dressed Current Medications Generic Name Dose Route Start Last Admin Trade Name Freq PRN Reason Stop Dose Admin Acetaminophen 650 mg 12/08/15 13:53 12/15/15 10:01 Tylenol Oral Solution - GT 650 mg Q6H PRN Administration FEVER Albuterol/Ipratropium 1 amp 12/02/15 14:23 12/10/15 21:12 Duoneb - NEB 1 amp Q4H PRN Administration SHORTNESS OF BREATH Amino Acids 30 ml 12/08/15 17:30 12/15/15 09:59 Prostat Sugar-Free Packet - PO 30 ml BID@0800,1730 KWAKU Administration Amlodipine Besylate 10 mg 12/09/15 10:00 12/15/15 10:00 Norvasc - GT 10 mg DAILY KWAKU Administration Guaifenesin 10 ml 12/02/15 17:59 12/15/15 10:01 Robitussin Dm - PO 10 ml Q6H PRN Administration COUGH Ibuprofen 200 mg 12/08/15 13:57 Motrin Oral Suspension - PO Q6H PRN FEVER Insulin Aspart 1 vial 12/08/15 18:00 12/15/15 06:14 Novolog Vial Sliding Scale - SQ 2 units Q6HPO KWAKU Administration Protocol Insulin Detemir 28 units 12/08/15 22:00 12/14/15 23:18 Levemir Vial SQ 28 units HS KWAKU Administration Lactobacillus Acidophilus 1 tab 12/09/15 10:00 12/15/15 09:59 Bacid - PO 1 tab DAILY KWAKU Administration Lisinopril 40 mg 12/09/15 10:00 12/15/15 10:04 Prinivil - GT 40 mg DAILY KWAKU Administration Metoprolol Tartrate 5 mg 12/08/15 14:02 Lopressor Injection - IVPB Q6H PRN HYPERTENSION Metoprolol Tartrate 150 mg 12/08/15 22:00 12/15/15 10:04 Lopressor - GT 150 mg BID KWAKU Administration Multivitamins 5 ml 12/09/15 10:00 12/15/15 10:00 Thera-Plus - GT 5 ml DAILY KWAKU Administration Pantoprazole Sodium 40 mg 12/09/15 10:00 12/15/15 09:59 Protonix Packets For Oral Suspension - GT 40 mg DAILY KWAKU Administration Assessment: 75 year old male with PMHx of HTN, IDDM, inguinal hernia who presented to the ED with diverticular bleed s/p Righ hemicolectomy with 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 PT developed HCAP and completed 7 days course of vanc/zosyn on 12/01/15. Plan: 1. Anoxic brain injury s/p brainstem CVAs - Mental status unchanged 2. Respiratory failure secondary to anoxic brain injury - Cont trach collar - Cont duonebs PRN - Albuterol neb PRN 3. HTN - Cont lisinopril, metoprolol, amlodipine 4. Multiple pressure ulcers - Stage III sacrum healing - Stage II left ear healing - Turn and position q2h 5. IDDM - Levemir 28 units HS - ISS BGM ACHS 6. FEN: - Tube feeds: Vital 1.5 @60ml/hr 7. Prophylaxis: - SCDs bilaterally/Lovenox - PT for passive ROM CODE STATUS: DNR
[2015-12-15] MEDS: INSULIN DETEMIR 100 UNITS/ML MDV SQ SCH (23:00)
[2015-12-16] MEDS: INSULIN SLIDING SCALE (NOVOLOG) 1 VIAL SQ SCH ×3 (06:34→17:38)
[2015-12-16] MEDS: AMINO ACIDS/PROTEIN HYDROLYS SUGAR-FREE 30 ML PACKET PO SCH ×2 (09:43→17:39)
[2015-12-16] MEDS: LACTOBACILLUS ACIDOPHILUS 1 EACH TAB (FP) PO SCH (09:43)
[2015-12-16] MEDS: METOPROLOL TARTRATE 50 MG TABLET (FP) GT SCH ×2 (09:44→22:40)
[2015-12-16] MEDS: amLODIPine BESYLATE 10 MG TABLET (FP) GT SCH (09:45)
[2015-12-16] MEDS: PANTOPRAZOLE SOD 40 MG SUSPENSION PACKET GT SCH (09:47)
[2015-12-16] MEDS: LISINOPRIL 20 MG TABLET (FP) GT SCH (09:47)
--- NOTE | 2015-12-16 10:37 | PN ---
Progress Note (short form) - Note Progress Note: This patient is new to [facility] 11/18/2015,was admitted on 06/27/2015. Date of admission 06/27/2015 for GI bleed. Events noted. Patient is a 75 yo M with PMHx HTN, DM, inguinal hernia was admitted on 2014 for Bright red blood per rectum and melena with multiple syncopal episodes. Dxgnosed with persistent diverticular bleed s/p colonoscopy ,s/p R hemicolectomy due to GI bleed on 06/29/2015. Course was complicated with CVA. patient was in the ICU unresponsive with anoxic brain injury had tracheostomy on 07/23/2015 .and then transferred to floor. No new event noted. Vital Signs Temperature 98.9 F 12/16/15 06:00 Pulse Rate 111 H 12/16/15 06:00 Respiratory Rate 22 12/16/15 06:00 Blood Pressure 157/99 12/16/15 06:00 O2 Sat by Pulse Oximetry (%) 97 12/15/15 10:33 Neuro: non verbal, spontaneous U/L extremity movement, opens eyes Pulm: Trach placed, clear anteriorly CV: s1 s2 RRR no mrg Abd: PEG tube placed CDI +BS, soft Ext: warm, +DP, no edema, heel ulcers dressed WBC 9.4 K/mm3 (4.0-10.0) 12/09/15 08:10 RBC 3.66 M/mm3 (4.00-5.60) L 12/09/15 08:10 Hgb 10.4 GM/dL (11.7-16.9) L 12/09/15 08:10 Hct 31.4 % (35.4-49) L 12/09/15 08:10 MCV 85.7 fl (80-96) 12/09/15 08:10 MCHC 33.2 g/dl (32.0-35.9) 12/09/15 08:10 RDW 16.6 % (11.9-15.9) H 12/09/15 08:10 Plt Count 271 K/MM3 (134-434) 12/09/15 08:10 MPV 7.8 fl (7.5-11.1) 12/09/15 08:10 CMP Sodium 144 mmol/L (136-145) 12/09/15 08:10 Potassium 3.7 mmol/L (3.5-5.1) 12/09/15 08:10 Chloride 105 mmol/L (98-107) 12/09/15 08:10 Carbon Dioxide 31 mmol/L (21-32) 12/09/15 08:10 Anion Gap 8 (8-16) 12/09/15 08:10 BUN 25 mg/dL (7-18) H 12/09/15 08:10 Creatinine 0.9 mg/dL (0.7-1.3) 12/09/15 08:10 Creat Clearance w eGFR > 60 (>60) 12/09/15 08:10 Random Glucose 96 mg/dL (74-106) D 12/09/15 08:10 Calcium 10.6 mg/dL (8.5-10.1) H 12/09/15 08:10 Total Bilirubin 0.3 mg/dL (0.2-1.0) D 12/09/15 08:10 AST 13 U/L (15-37) L 12/09/15 08:10 ALT 17 U/L (12-78) 12/09/15 08:10 Alkaline Phosphatase 87 U/L (45-117) 12/09/15 08:10 Total Protein 8.2 g/dl (6.4-8.2) 12/09/15 08:10 Albumin 3.6 g/dl (3.4-5.0) 12/09/15 08:10 CARDIAC ENZYMES Creatine Kinase 62 IU/L (38-174) 06/28/15 09:35 Troponin I 0.07 ng/ml (0.03-0.5) D 07/09/15 05:00 Current Medications Generic Name Dose Route Start Last Admin Trade Name Freq PRN Reason Stop Dose Admin Acetaminophen 650 mg 12/08/15 13:53 12/15/15 10:01 Tylenol Oral Solution - GT 650 mg Q6H PRN Administration FEVER Albuterol/Ipratropium 1 amp 12/02/15 14:23 12/10/15 21:12 Duoneb - NEB 1 amp Q4H PRN Administration SHORTNESS OF BREATH Amino Acids 30 ml 12/08/15 17:30 12/16/15 09:43 Prostat Sugar-Free Packet - PO 30 ml BID@0800,1730 KWAKU Administration Amlodipine Besylate 10 mg 12/09/15 10:00 12/16/15 09:45 Norvasc - GT 10 mg DAILY KWAKU Administration Guaifenesin 10 ml 12/02/15 17:59 12/15/15 10:01 Robitussin Dm - PO 10 ml Q6H PRN Administration COUGH Ibuprofen 200 mg 12/08/15 13:57 Motrin Oral Suspension - PO Q6H PRN FEVER Insulin Aspart 1 vial 12/08/15 18:00 12/16/15 06:34 Novolog Vial Sliding Scale - SQ Not Given Q6HPO [facility] Protocol Insulin Detemir 28 units 12/08/15 22:00 12/15/15 23:00 Levemir Vial SQ 28 units HS KWAKU Administration Lactobacillus Acidophilus 1 tab 12/09/15 10:00 12/16/15 09:43 Bacid - PO 1 tab DAILY KWAKU Administration Lisinopril 40 mg 12/09/15 10:00 12/16/15 09:47 Prinivil - GT 40 mg DAILY KWAKU Administration Metoprolol Tartrate 5 mg 12/08/15 14:02 Lopressor Injection - IVPB Q6H PRN HYPERTENSION Metoprolol Tartrate 150 mg 12/08/15 22:00 12/16/15 09:44 Lopressor - GT 150 mg BID KWAKU Administration Multivitamins 5 ml 12/09/15 10:00 12/15/15 10:00 Thera-Plus - GT 5 ml DAILY KWAKU Administration Pantoprazole Sodium 40 mg 12/09/15 10:00 12/16/15 09:47 Protonix Packets For Oral Suspension - GT 40 mg DAILY KWAKU Administration Medication Instructions Recorded Amino Acids/Protein Hydrolys 30 ml GT DAILY packet 08/09/15 [Prostat Sugar-Free Packet -] Amlodipine Besylate [Norvasc -] 10 mg GT DAILY tablet 08/09/15 Chlorhexidine Gluconate [Peridex -] 15 ml MM BID cup 08/09/15 Insulin (Levemir) [Levemir Flexpen 25 units SQ HS pen 08/09/15 -] Insulin (Novolog) [Novolog Flexpen 3 units SQ Q6HPO pen 08/09/15 -] Insulin Sliding Scale [Novolog 0 units SQ Q6HPO pen 08/09/15 Vial Sliding Scale -] Lisinopril [Prinivil -] 20 mg GT DAILY tablet 08/09/15 Metoprolol Tartrate Injection 5 mg IVPB Q6H PRN #0 vial 08/09/15 [Lopressor Injection -] Metoprolol Tartrate [Lopressor -] 100 mg GT BID tablet 08/09/15 Ondansetron Injection [Zofran 4 mg IVPB Q6H PRN #0 vial 08/09/15 Injection] Pantoprazole Suspension [Protonix 40 mg GT DAILY packet 08/09/15 Packets For Oral Suspension -] Vancomycin Oral Solution 125 mg GT Q6HPO ml 08/09/15 Assessment/plan: 75 year old male with PMHx of HTN, IDDM, inguinal hernia who presented to the ED with diverticular bleed s/p Righ hemicolectomy with 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 PT developed HCAP and completed 7 days course of vanc/zosyn on 12/01/15. 1. Anoxic brain injury s/p brainstem CVAs - Mental status unchanged 2. Respiratory failure secondary to anoxic brain injury - Cont trach collar , duonebs PRN ,Albuterol neb PRN 3. HTN Cont lisinopril, metoprolol, amlodipine 4. Multiple pressure ulcers, Stage III sacrum healing - Stage II left ear healing, Turn and position q2h 5. IDDM, Levemir 28 units HS - ISS BGM ACHS 6. FEN: - Tube feeds: Vital 1.5 @60ml/hr 7. Prophylaxis: - SCDs bilaterally/Lovenox - PT for passive ROM CODE STATUS: DNR
[2015-12-16] MEDS: MULTIVITAMINS THERAPEUTIC GT SCH (17:39)
[2015-12-16] MEDS: INSULIN DETEMIR 100 UNITS/ML MDV SQ SCH (22:39)
[2015-12-17] MEDS: INSULIN SLIDING SCALE (NOVOLOG) 1 VIAL SQ SCH ×5 (00:23→23:12)
[2015-12-17] MEDS: LACTOBACILLUS ACIDOPHILUS 1 EACH TAB (FP) PO SCH (10:37)
[2015-12-17] MEDS: AMINO ACIDS/PROTEIN HYDROLYS SUGAR-FREE 30 ML PACKET PO SCH ×2 (10:37→17:40)
[2015-12-17] MEDS: METOPROLOL TARTRATE 50 MG TABLET (FP) GT SCH ×2 (10:37→23:11)
[2015-12-17] MEDS: amLODIPine BESYLATE 10 MG TABLET (FP) GT SCH (10:37)
[2015-12-17] MEDS: PANTOPRAZOLE SOD 40 MG SUSPENSION PACKET GT SCH (10:37)
[2015-12-17] MEDS: MULTIVITAMINS THERAPEUTIC GT SCH (10:37)
[2015-12-17] MEDS: LISINOPRIL 20 MG TABLET (FP) GT SCH (10:37)
[2015-12-17] MEDS: INSULIN DETEMIR 100 UNITS/ML MDV SQ SCH (23:11)
[2015-12-18] MEDS: INSULIN SLIDING SCALE (NOVOLOG) 1 VIAL SQ SCH ×3 (06:16→17:56)
[2015-12-18] MEDS: AMINO ACIDS/PROTEIN HYDROLYS SUGAR-FREE 30 ML PACKET PO SCH ×2 (09:11→17:57)
[2015-12-18] MEDS: LACTOBACILLUS ACIDOPHILUS 1 EACH TAB (FP) PO SCH (09:27)
[2015-12-18] MEDS: PANTOPRAZOLE SOD 40 MG SUSPENSION PACKET GT SCH (09:27)
[2015-12-18] MEDS: amLODIPine BESYLATE 10 MG TABLET (FP) GT SCH (09:28)
[2015-12-18] MEDS: METOPROLOL TARTRATE 50 MG TABLET (FP) GT SCH ×2 (09:28→21:56)
[2015-12-18] MEDS: LISINOPRIL 20 MG TABLET (FP) GT SCH (09:28)
[2015-12-18] MEDS: MULTIVITAMINS THERAPEUTIC GT SCH ×2 (09:30→14:44)
[2015-12-18] MEDS: INSULIN DETEMIR 100 UNITS/ML MDV SQ SCH (21:55)
[2015-12-19] MEDS: INSULIN SLIDING SCALE (NOVOLOG) 1 VIAL SQ SCH ×4 (06:45→17:41)
[2015-12-19] MEDS: AMINO ACIDS/PROTEIN HYDROLYS SUGAR-FREE 30 ML PACKET PO SCH ×2 (08:49→17:41)
[2015-12-19] MEDS: PANTOPRAZOLE SOD 40 MG SUSPENSION PACKET GT SCH (09:49)
[2015-12-19] MEDS: amLODIPine BESYLATE 10 MG TABLET (FP) GT SCH (09:50)
[2015-12-19] MEDS: LISINOPRIL 20 MG TABLET (FP) GT SCH (09:50)
[2015-12-19] MEDS: METOPROLOL TARTRATE 50 MG TABLET (FP) GT SCH ×2 (09:51→22:00)
[2015-12-19] MEDS: LACTOBACILLUS ACIDOPHILUS 1 EACH TAB (FP) PO SCH (09:51)
[2015-12-19] MEDS: MULTIVITAMINS THERAPEUTIC GT SCH ×2 (10:00→14:21)
[2015-12-19] MEDS: INSULIN DETEMIR 100 UNITS/ML MDV SQ SCH (22:43)
--- NOTE | 2015-12-19 23:17 | PN ---
Progress Note (short form) - Note Progress Note: This patient is new [place] [facility] 11/18/2015,was admitted on 06/27/2015. Date of admission 06/27/2015 for GI bleed. Events noted. Patient is a 75 yo M with PMHx HTN, DM, inguinal hernia was admitted on 2014 for Bright red blood per rectum and melena with multiple syncopal episodes. Dxgnosed with persistent diverticular bleed s/p colonoscopy ,s/p R hemicolectomy due to GI bleed on 06/29/2015. Course was complicated with CVA. patient was in the ICU unresponsive with anoxic brain injury had tracheostomy on 07/23/2015 .and then transferred to floor. comfortable,no acute distress. Vital Signs Period Temp Pulse Resp BP Sys/Santiago Pulse Ox Last 24 Hr 98.9 F-99.7 F 81-98 20-24 130-158/79-86 95-98 Neuro: non verbal, spontaneous U/L extremity movement, opens eyes Pulm: Trach placed, clear anteriorly CV: s1 s2 RRR no mrg Abd: PEG tube placed CDI +BS, soft Ext: warm, +DP, no edema, heel ulcers dressed CBCD WBC 9.4 K/mm3 (4.0-10.0) 12/09/15 08:10 RBC 3.66 M/mm3 (4.00-5.60) L 12/09/15 08:10 Hgb 10.4 GM/dL (11.7-16.9) L 12/09/15 08:10 Hct 31.4 % (35.4-49) L 12/09/15 08:10 MCV 85.7 fl (80-96) 12/09/15 08:10 MCHC 33.2 g/dl (32.0-35.9) 12/09/15 08:10 RDW 16.6 % (11.9-15.9) H 12/09/15 08:10 Plt Count 271 K/MM3 (134-434) 12/09/15 08:10 MPV 7.8 fl (7.5-11.1) 12/09/15 08:10 CMP Sodium 144 mmol/L (136-145) 12/09/15 08:10 Potassium 3.7 mmol/L (3.5-5.1) 12/09/15 08:10 Chloride 105 mmol/L (98-107) 12/09/15 08:10 Carbon Dioxide 31 mmol/L (21-32) 12/09/15 08:10 Anion Gap 8 (8-16) 12/09/15 08:10 BUN 25 mg/dL (7-18) H 12/09/15 08:10 Creatinine 0.9 mg/dL (0.7-1.3) 12/09/15 08:10 Creat Clearance w eGFR > 60 (>60) 12/09/15 08:10 Random Glucose 96 mg/dL (74-106) D 12/09/15 08:10 Calcium 10.6 mg/dL (8.5-10.1) H 12/09/15 08:10 Total Bilirubin 0.3 mg/dL (0.2-1.0) D 12/09/15 08:10 AST 13 U/L (15-37) L 12/09/15 08:10 ALT 17 U/L (12-78) 12/09/15 08:10 Alkaline Phosphatase 87 U/L (45-117) 12/09/15 08:10 Total Protein 8.2 g/dl (6.4-8.2) 12/09/15 08:10 Albumin 3.6 g/dl (3.4-5.0) 12/09/15 08:10 CARDIAC ENZYMES Creatine Kinase 62 IU/L (38-174) 06/28/15 09:35 Troponin I 0.07 ng/ml (0.03-0.5) D 07/09/15 05:00 Assessment/plan: 75 year old male with PMHx of HTN, IDDM, inguinal hernia who presented to the ED with diverticular bleed s/p Righ hemicolectomy with 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 PT developed HCAP and completed 7 days course of vanc/zosyn on 12/01/15. 1. Anoxic brain injury s/p brainstem CVAs - Mental status unchanged 2. Respiratory failure secondary to anoxic brain injury - Cont trach collar , duonebs PRN ,Albuterol neb PRN 3. HTN Cont lisinopril, metoprolol, amlodipine 4. Multiple pressure ulcers, Stage III sacrum healing - Stage II left ear healing, Turn and position q2h 5. IDDM, Levemir 28 units HS - ISS BGM ACHS 6. FEN: - Tube feeds: Vital 1.5 @60ml/hr 7. Prophylaxis: - SCDs bilaterally/Lovenox - PT for passive ROM CODE STATUS: DNR
--- NOTE | 2015-12-19 23:25 | PN ---
Progress Note (short form) - Note Progress Note: [place] patient is new [place] 11/18/2015,was admitted on 06/27/2015. Date of admission 06/27/2015 for GI bleed. Events noted. Patient is a 75 yo M with PMHx HTN, DM, inguinal hernia was admitted on 2014 for Bright red blood per rectum and melena with multiple syncopal episodes. Dxgnosed with persistent diverticular bleed s/p colonoscopy ,s/p R hemicolectomy due to GI bleed on 06/29/2015. Course was complicated with CVA. patient was in the ICU unresponsive with anoxic brain injury had tracheostomy on 07/23/2015 .and then transferred to floor. comfortable, non verbal Vital Signs Temperature 99.1 F 12/19/15 22:52 Pulse Rate 96 H 12/19/15 19:01 Respiratory Rate 24 12/19/15 22:52 Blood Pressure 130/79 12/19/15 19:00 O2 Sat by Pulse Oximetry (%) 95 12/19/15 19:01 Neuro: non verbal, spontaneous U/L extremity movement, opens eyes Pulm: Trach placed, clear anteriorly CV: s1 s2 RRR no mrg Abd: PEG tube placed CDI +BS, soft Ext: warm, +DP, no edema, heel ulcers dressed CBCD WBC 9.4 K/mm3 (4.0-10.0) 12/09/15 08:10 RBC 3.66 M/mm3 (4.00-5.60) L 12/09/15 08:10 Hgb 10.4 GM/dL (11.7-16.9) L 12/09/15 08:10 Hct 31.4 % (35.4-49) L 12/09/15 08:10 MCV 85.7 fl (80-96) 12/09/15 08:10 MCHC 33.2 g/dl (32.0-35.9) 12/09/15 08:10 RDW 16.6 % (11.9-15.9) H 12/09/15 08:10 Plt Count 271 K/MM3 (134-434) 12/09/15 08:10 MPV 7.8 fl (7.5-11.1) 12/09/15 08:10 CMP Sodium 144 mmol/L (136-145) 12/09/15 08:10 Potassium 3.7 mmol/L (3.5-5.1) 12/09/15 08:10 Chloride 105 mmol/L (98-107) 12/09/15 08:10 Carbon Dioxide 31 mmol/L (21-32) 12/09/15 08:10 Anion Gap 8 (8-16) 12/09/15 08:10 BUN 25 mg/dL (7-18) H 12/09/15 08:10 Creatinine 0.9 mg/dL (0.7-1.3) 12/09/15 08:10 Creat Clearance w eGFR > 60 (>60) 12/09/15 08:10 Random Glucose 96 mg/dL (74-106) D 12/09/15 08:10 Calcium 10.6 mg/dL (8.5-10.1) H 12/09/15 08:10 Total Bilirubin 0.3 mg/dL (0.2-1.0) D 12/09/15 08:10 AST 13 U/L (15-37) L 12/09/15 08:10 ALT 17 U/L (12-78) 12/09/15 08:10 Alkaline Phosphatase 87 U/L (45-117) 12/09/15 08:10 Total Protein 8.2 g/dl (6.4-8.2) 12/09/15 08:10 Albumin 3.6 g/dl (3.4-5.0) 12/09/15 08:10 CARDIAC ENZYMES Creatine Kinase 62 IU/L (38-174) 06/28/15 09:35 Troponin I 0.07 ng/ml (0.03-0.5) D 07/09/15 05:00 Current Medications Generic Name Dose Route Start Last Admin Trade Name Freq PRN Reason Stop Dose Admin Acetaminophen 650 mg 12/08/15 13:53 12/15/15 10:01 Tylenol Oral Solution - GT 650 mg Q6H PRN Administration FEVER Albuterol/Ipratropium 1 amp 12/02/15 14:23 12/10/15 21:12 Duoneb - NEB 1 amp Q4H PRN Administration SHORTNESS OF BREATH Amino Acids 30 ml 12/08/15 17:30 12/19/15 17:41 Prostat Sugar-Free Packet - PO 30 ml BID@0800,1730 KWAKU Administration Amlodipine Besylate 10 mg 12/09/15 10:00 12/19/15 09:50 Norvasc - GT 10 mg DAILY KWAKU Administration Guaifenesin 10 ml 12/02/15 17:59 12/15/15 10:01 Robitussin Dm - PO 10 ml Q6H PRN Administration COUGH Ibuprofen 200 mg 12/08/15 13:57 Motrin Oral Suspension - PO Q6H PRN FEVER Insulin Aspart 1 vial 12/08/15 18:00 12/19/15 17:41 Novolog Vial Sliding Scale - SQ 2 units Q6HPO KWAKU Administration Protocol Insulin Detemir 28 units 12/08/15 22:00 12/19/15 22:43 Levemir Vial SQ 28 units HS KWAKU Administration Lactobacillus Acidophilus 1 tab 12/09/15 10:00 12/19/15 09:51 Bacid - PO 1 tab DAILY KWAKU Administration Lisinopril 40 mg 12/09/15 10:00 12/19/15 09:50 Prinivil - GT 40 mg DAILY KWAKU Administration Metoprolol Tartrate 5 mg 12/08/15 14:02 Lopressor Injection - IVPB Q6H PRN HYPERTENSION Metoprolol Tartrate 150 mg 12/08/15 22:00 12/19/15 09:51 Lopressor - GT 150 mg BID KWAKU Administration Multivitamins 5 ml 12/09/15 10:00 12/19/15 14:21 Thera-Plus - GT 5 ml DAILY KWAKU Administration Pantoprazole Sodium 40 mg 12/09/15 10:00 12/19/15 09:49 Protonix Packets For Oral Suspension - GT 40 mg DAILY KWAKU Administration Medication Instructions Recorded Amino Acids/Protein Hydrolys 30 ml GT DAILY packet 08/09/15 [Prostat Sugar-Free Packet -] Amlodipine Besylate [Norvasc -] 10 mg GT DAILY tablet 08/09/15 Chlorhexidine Gluconate [Peridex -] 15 ml MM BID cup 08/09/15 Insulin (Levemir) [Levemir Flexpen 25 units SQ HS pen 08/09/15 -] Insulin (Novolog) [Novolog Flexpen 3 units SQ Q6HPO pen 08/09/15 -] Insulin Sliding Scale [Novolog 0 units SQ Q6HPO pen 08/09/15 Vial Sliding Scale -] Lisinopril [Prinivil -] 20 mg GT DAILY tablet 08/09/15 Metoprolol Tartrate Injection 5 mg IVPB Q6H PRN #0 vial 08/09/15 [Lopressor Injection -] Metoprolol Tartrate [Lopressor -] 100 mg GT BID tablet 08/09/15 Ondansetron Injection [Zofran 4 mg IVPB Q6H PRN #0 vial 08/09/15 Injection] Pantoprazole Suspension [Protonix 40 mg GT DAILY packet 08/09/15 Packets For Oral Suspension -] Vancomycin Oral Solution 125 mg GT Q6HPO ml 08/09/15 Assessment/plan: 75 year old male with PMHx of HTN, IDDM, inguinal hernia who presented to the ED with diverticular bleed s/p Righ hemicolectomy with 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 PT developed HCAP and completed 7 days course of vanc/zosyn on 12/01/15. 1. Anoxic brain injury s/p brainstem CVAs - no change of Mental status 2. Respiratory failure secondary to anoxic brain injury - Cont trach collar , duonebs PRN ,Albuterol neb PRN 3. HTN Cont lisinopril, metoprolol, amlodipine 4. Multiple pressure ulcers, Stage III sacrum healing - Stage II left ear healing, Turn and position q2h 5. IDDM, Levemir 28 units HS - ISS BGM ACHS 6. FEN: - Tube feeds: Vital 1.5 @60ml/hr 7. Prophylaxis: - SCDs bilaterally/Lovenox - PT for passive ROM CODE STATUS: DNR
[2015-12-20] MEDS: guaiFENesin/D-METHORPHAN HB 10 ML UNIT-DOSE CUPS PO PRN (01:21)
[2015-12-20] MEDS: INSULIN SLIDING SCALE (NOVOLOG) 1 VIAL SQ SCH ×4 (01:25→17:22)
[2015-12-20] MEDS: AMINO ACIDS/PROTEIN HYDROLYS SUGAR-FREE 30 ML PACKET PO SCH ×2 (07:45→17:22)
[2015-12-20 07:54] LABS: BASOPHIL 0.7 % (0-2.0); EOSINOPHIL 3.4 % (0-4.5); MCH 28.5 pg (25.7-33.7); MCHC 32.9 g/dl (32.0-35.9); MEAN CELL VOLUME 86.5 fl (80-96); MEAN PLT VOLUME 8.6 fl (7.5-11.1); NEUTROPHILS 69.1 % (42.8-82.8); PLATELET COUNT 187 K/MM3 (134-434); RDW 16.3 % (11.9-15.9); WHITE BLOOD COUNT 9.4 K/mm3 (4.0-10.0)
[2015-12-20 08:22] LABS: ALBUMIN 3.4 g/dl (3.4-5.0); ANION GAP 6 (8-16); BILIRUBIN,TOTAL 0.3 mg/dL (0.2-1.0); CALCIUM 9.9 mg/dL (8.5-10.1); CO2 32 mmol/L (21-32); CREATININE 0.9 mg/dL (0.7-1.3); GLUCOSE,RANDOM 199 mg/dL (74-106); SGOT/AST 14 U/L (15-37); SGPT/ALT 20 U/L (12-78); TOT PROT 7.6 g/dl (6.4-8.2)
[2015-12-20 08:23] LABS: ALK PHOS 97 U/L (45-117)
[2015-12-20] MEDS: PANTOPRAZOLE SOD 40 MG SUSPENSION PACKET GT SCH (10:26)
[2015-12-20] MEDS: amLODIPine BESYLATE 10 MG TABLET (FP) GT SCH (10:26)
[2015-12-20] MEDS: LACTOBACILLUS ACIDOPHILUS 1 EACH TAB (FP) PO SCH (10:26)
[2015-12-20] MEDS: LISINOPRIL 20 MG TABLET (FP) GT SCH (10:27)
[2015-12-20] MEDS: METOPROLOL TARTRATE 50 MG TABLET (FP) GT SCH ×2 (10:28→21:31)
[2015-12-20] MEDS: MULTIVITAMINS THERAPEUTIC GT SCH (12:29)
--- NOTE | 2015-12-20 17:36 | PN ---
Progress Note (short form) - Note Progress Note: This patient is new to [place] 11/18/2015,was admitted on 06/27/2015. Date of admission 06/27/2015 for GI bleed. Events noted. Patient is a 75 yo M with PMHx HTN, DM, inguinal hernia was admitted on 2014 for Bright red blood per rectum and melena with multiple syncopal episodes. Dxgnosed with persistent diverticular bleed s/p colonoscopy ,s/p R hemicolectomy due to GI bleed on 06/29/2015. Course was complicated with CVA. patient was in the ICU unresponsive with anoxic brain injury had tracheostomy on 07/23/2015 .and then transferred to floor. Continues to be non verbal Vital Signs Temperature 98.7 F 12/20/15 15:48 Pulse Rate 87 12/20/15 15:48 Respiratory Rate 20 12/20/15 15:48 Blood Pressure 148/87 12/20/15 15:48 O2 Sat by Pulse Oximetry (%) 97 12/20/15 11:50 Neuro: non verbal, spontaneous U/L extremity movement, opens eyes Pulm: Trach placed, clear anteriorly CV: s1 s2 RRR no mrg Abd: PEG tube placed CDI +BS, soft Ext: warm, +DP, no edema, heel ulcers dressed CBCD WBC 9.4 K/mm3 (4.0-10.0) 12/20/15 06:50 RBC 3.46 M/mm3 (4.00-5.60) L 12/20/15 06:50 Hgb 9.8 GM/dL (11.7-16.9) L 12/20/15 06:50 Hct 29.9 % (35.4-49) L 12/20/15 06:50 MCV 86.5 fl (80-96) 12/20/15 06:50 MCHC 32.9 g/dl (32.0-35.9) 12/20/15 06:50 RDW 16.3 % (11.9-15.9) H 12/20/15 06:50 Plt Count 187 K/MM3 (134-434) D 12/20/15 06:50 MPV 8.6 fl (7.5-11.1) D 12/20/15 06:50 CMP Sodium 142 mmol/L (136-145) 12/20/15 06:50 Potassium 3.6 mmol/L (3.5-5.1) 12/20/15 06:50 Chloride 104 mmol/L (98-107) 12/20/15 06:50 Carbon Dioxide 32 mmol/L (21-32) 12/20/15 06:50 Anion Gap 6 (8-16) L 12/20/15 06:50 BUN 26 mg/dL (7-18) H 12/20/15 06:50 Creatinine 0.9 mg/dL (0.7-1.3) 12/20/15 06:50 Creat Clearance w eGFR > 60 (>60) 12/20/15 06:50 Random Glucose 199 mg/dL (74-106) H D 12/20/15 06:50 Calcium 9.9 mg/dL (8.5-10.1) 12/20/15 06:50 Total Bilirubin 0.3 mg/dL (0.2-1.0) 12/20/15 06:50 AST 14 U/L (15-37) L 12/20/15 06:50 ALT 20 U/L (12-78) 12/20/15 06:50 Alkaline Phosphatase 97 U/L (45-117) 12/20/15 06:50 Total Protein 7.6 g/dl (6.4-8.2) 12/20/15 06:50 Albumin 3.4 g/dl (3.4-5.0) 12/20/15 06:50 CARDIAC ENZYMES Creatine Kinase 62 IU/L (38-174) 06/28/15 09:35 Troponin I 0.07 ng/ml (0.03-0.5) D 07/09/15 05:00 Current Medications Generic Name Dose Route Start Last Admin Trade Name Freq PRN Reason Stop Dose Admin Acetaminophen 650 mg 12/08/15 13:53 12/15/15 10:01 Tylenol Oral Solution - GT 650 mg Q6H PRN Administration FEVER Albuterol/Ipratropium 1 amp 12/02/15 14:23 12/10/15 21:12 Duoneb - NEB 1 amp Q4H PRN Administration SHORTNESS OF BREATH Amino Acids 30 ml 12/08/15 17:30 12/20/15 17:22 Prostat Sugar-Free Packet - PO 30 ml BID@0800,1730 KWAKU Administration Amlodipine Besylate 10 mg 12/09/15 10:00 12/20/15 10:26 Norvasc - GT 10 mg DAILY KWAKU Administration Guaifenesin 10 ml 12/02/15 17:59 12/20/15 01:21 Robitussin Dm - PO 10 ml Q6H PRN Administration COUGH Ibuprofen 200 mg 12/08/15 13:57 Motrin Oral Suspension - PO Q6H PRN FEVER Insulin Aspart 1 vial 12/08/15 18:00 12/20/15 17:22 Novolog Vial Sliding Scale - SQ 2 units Q6HPO KWAKU Administration Protocol Insulin Detemir 28 units 12/08/15 22:00 12/19/15 22:43 Levemir Vial SQ 28 units HS KWAKU Administration Lactobacillus Acidophilus 1 tab 12/09/15 10:00 12/20/15 10:26 Bacid - PO 1 tab DAILY KWAKU Administration Lisinopril 40 mg 12/09/15 10:00 12/20/15 10:27 Prinivil - GT 40 mg DAILY KWAKU Administration Metoprolol Tartrate 5 mg 12/08/15 14:02 Lopressor Injection - IVPB Q6H PRN HYPERTENSION Metoprolol Tartrate 150 mg 12/08/15 22:00 12/20/15 10:28 Lopressor - GT 150 mg BID KWAKU Administration Multivitamins 5 ml 12/09/15 10:00 12/20/15 12:29 Thera-Plus - GT 5 ml DAILY KWAKU Administration Pantoprazole Sodium 40 mg 12/09/15 10:00 12/20/15 10:26 Protonix Packets For Oral Suspension - GT 40 mg DAILY KWAKU Administration Assessment/plan: 75 year old male with PMHx of HTN, IDDM, inguinal hernia who presented to the ED with diverticular bleed s/p Righ hemicolectomy with 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 PT developed HCAP and completed 7 days course of vanc/zosyn on 12/01/15. 1. Anoxic brain injury s/p brainstem CVAs - Mental status unchanged 2. Respiratory failure secondary to anoxic brain injury - Cont trach collar , duonebs PRN ,Albuterol neb PRN 3. HTN Cont lisinopril, metoprolol, amlodipine 4. Multiple pressure ulcers, Stage III sacrum healing - Stage II left ear healing, Turn and position q2h 5. IDDM, Levemir 28 units HS - ISS BGM ACHS 6. FEN: - Tube feeds: Vital 1.5 @60ml/hr 7. Prophylaxis: - SCDs bilaterally/Lovenox - PT for passive ROM CODE STATUS: DNR
[2015-12-20] MEDS: INSULIN DETEMIR 100 UNITS/ML MDV SQ SCH (21:40)
[2015-12-21] MEDS: INSULIN SLIDING SCALE (NOVOLOG) 1 VIAL SQ SCH ×4 (01:38→17:06)
--- NOTE | 2015-12-21 09:10 | PN ---
Progress Note (short form) - Note Progress Note: This patient is new to de 11/18/2015,was admitted on 06/27/2015. Date of admission 06/27/2015 for GI bleed. Events noted. Patient is a 75 yo M with PMHx HTN, DM, inguinal hernia was admitted on 2014 for Bright red blood per rectum and melena with multiple syncopal episodes. Dxgnosed with persistent diverticular bleed s/p colonoscopy ,s/p R hemicolectomy due to GI bleed on 06/29/2015. Course was complicated with CVA. patient was in the ICU unresponsive with anoxic brain injury had tracheostomy on 07/23/2015 .and then transferred to floor. Lying in bed comfortably in NAD, non verbal Vital Signs Temperature 97.9 F 12/21/15 06:00 Pulse Rate 85 12/21/15 06:00 Respiratory Rate 20 12/21/15 06:00 Blood Pressure 146/80 12/21/15 06:00 O2 Sat by Pulse Oximetry (%) 96 12/20/15 23:39 Neuro: non verbal, spontaneous U/L extremity movement, opens eyes Pulm: Trach placed, clear anteriorly CV: s1 s2 RRR no mrg Abd: PEG tube placed CDI +BS, soft Ext: warm, +DP, no edema, heel ulcers dressed CBCD WBC 9.4 K/mm3 (4.0-10.0) 12/20/15 06:50 RBC 3.46 M/mm3 (4.00-5.60) L 12/20/15 06:50 Hgb 9.8 GM/dL (11.7-16.9) L 12/20/15 06:50 Hct 29.9 % (35.4-49) L 12/20/15 06:50 MCV 86.5 fl (80-96) 12/20/15 06:50 MCHC 32.9 g/dl (32.0-35.9) 12/20/15 06:50 RDW 16.3 % (11.9-15.9) H 12/20/15 06:50 Plt Count 187 K/MM3 (134-434) D 12/20/15 06:50 MPV 8.6 fl (7.5-11.1) D 12/20/15 06:50 CMP Sodium 142 mmol/L (136-145) 12/20/15 06:50 Potassium 3.6 mmol/L (3.5-5.1) 12/20/15 06:50 Chloride 104 mmol/L (98-107) 12/20/15 06:50 Carbon Dioxide 32 mmol/L (21-32) 12/20/15 06:50 Anion Gap 6 (8-16) L 12/20/15 06:50 BUN 26 mg/dL (7-18) H 12/20/15 06:50 Creatinine 0.9 mg/dL (0.7-1.3) 12/20/15 06:50 Creat Clearance w eGFR > 60 (>60) 12/20/15 06:50 Random Glucose 199 mg/dL (74-106) H D 12/20/15 06:50 Calcium 9.9 mg/dL (8.5-10.1) 12/20/15 06:50 Total Bilirubin 0.3 mg/dL (0.2-1.0) 12/20/15 06:50 AST 14 U/L (15-37) L 12/20/15 06:50 ALT 20 U/L (12-78) 12/20/15 06:50 Alkaline Phosphatase 97 U/L (45-117) 12/20/15 06:50 Total Protein 7.6 g/dl (6.4-8.2) 12/20/15 06:50 Albumin 3.4 g/dl (3.4-5.0) 12/20/15 06:50 CARDIAC ENZYMES Creatine Kinase 62 IU/L (38-174) 06/28/15 09:35 Troponin I 0.07 ng/ml (0.03-0.5) D 07/09/15 05:00 Current Medications Generic Name Dose Route Start Last Admin Trade Name Freq PRN Reason Stop Dose Admin Acetaminophen 650 mg 12/08/15 13:53 12/15/15 10:01 Tylenol Oral Solution - GT 650 mg Q6H PRN Administration FEVER Albuterol/Ipratropium 1 amp 12/02/15 14:23 12/10/15 21:12 Duoneb - NEB 1 amp Q4H PRN Administration SHORTNESS OF BREATH Amino Acids 30 ml 12/08/15 17:30 12/20/15 17:22 Prostat Sugar-Free Packet - PO 30 ml BID@0800,1730 KWAKU Administration Amlodipine Besylate 10 mg 12/09/15 10:00 12/20/15 10:26 Norvasc - GT 10 mg DAILY KWAKU Administration Guaifenesin 10 ml 12/02/15 17:59 12/20/15 01:21 Robitussin Dm - PO 10 ml Q6H PRN Administration COUGH Ibuprofen 200 mg 12/08/15 13:57 Motrin Oral Suspension - PO Q6H PRN FEVER Insulin Aspart 1 vial 12/08/15 18:00 12/21/15 06:20 Novolog Vial Sliding Scale - SQ 2 units Q6HPO KWAKU Administration Protocol Insulin Detemir 28 units 12/08/15 22:00 12/20/15 21:40 Levemir Vial SQ 28 units HS KWAKU Administration Lactobacillus Acidophilus 1 tab 12/09/15 10:00 12/20/15 10:26 Bacid - PO 1 tab DAILY KWAKU Administration Lisinopril 40 mg 12/09/15 10:00 12/20/15 10:27 Prinivil - GT 40 mg DAILY KWAKU Administration Metoprolol Tartrate 5 mg 12/08/15 14:02 Lopressor Injection - IVPB Q6H PRN HYPERTENSION Metoprolol Tartrate 150 mg 12/08/15 22:00 12/20/15 21:31 Lopressor - GT 150 mg BID KWAKU Administration Multivitamins 5 ml 12/09/15 10:00 12/20/15 12:29 Thera-Plus - GT 5 ml DAILY KWAKU Administration Pantoprazole Sodium 40 mg 12/09/15 10:00 12/20/15 10:26 Protonix Packets For Oral Suspension - GT 40 mg DAILY KWAKU Administration Medication Instructions Recorded Amino Acids/Protein Hydrolys 30 ml GT DAILY packet 08/09/15 [Prostat Sugar-Free Packet -] Amlodipine Besylate [Norvasc -] 10 mg GT DAILY tablet 08/09/15 Chlorhexidine Gluconate [Peridex -] 15 ml MM BID cup 08/09/15 Insulin (Levemir) [Levemir Flexpen 25 units SQ HS pen 08/09/15 -] Insulin (Novolog) [Novolog Flexpen 3 units SQ Q6HPO pen 08/09/15 -] Insulin Sliding Scale [Novolog 0 units SQ Q6HPO pen 08/09/15 Vial Sliding Scale -] Lisinopril [Prinivil -] 20 mg GT DAILY tablet 08/09/15 Metoprolol Tartrate Injection 5 mg IVPB Q6H PRN #0 vial 08/09/15 [Lopressor Injection -] Metoprolol Tartrate [Lopressor -] 100 mg GT BID tablet 08/09/15 Ondansetron Injection [Zofran 4 mg IVPB Q6H PRN #0 vial 08/09/15 Injection] Pantoprazole Suspension [Protonix 40 mg GT DAILY packet 08/09/15 Packets For Oral Suspension -] Vancomycin Oral Solution 125 mg GT Q6HPO ml 08/09/15 Assessment/plan: 75 year old male with PMHx of HTN, IDDM, inguinal hernia who presented to the ED with diverticular bleed s/p Righ hemicolectomy with 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 PT developed HCAP and completed 7 days course of vanc/zosyn on 12/01/15. no change in his outcome, weekly labs.stable. 1. Anoxic brain injury s/p brainstem CVAs - Mental status unchanged 2. Respiratory failure secondary to anoxic brain injury - Cont trach collar , duonebs PRN ,Albuterol neb PRN 3. HTN Cont lisinopril, metoprolol, amlodipine 4. Multiple pressure ulcers, Stage III sacrum healing - Stage II left ear healing, Turn and position q2h 5. IDDM, Levemir 28 units HS - ISS BGM ACHS 6. FEN: - Tube feeds: Vital 1.5 @60ml/hr 7. Prophylaxis: - SCDs bilaterally/Lovenox - PT for passive ROM CODE STATUS: DNR
[2015-12-21] MEDS: ALBUTEROL SO4 2.5/IPRATROPIUM 0.5 INH SOL 3 ML VIAL.NEB. NEB PRN (09:40)
[2015-12-21] MEDS: PANTOPRAZOLE SOD 40 MG SUSPENSION PACKET GT SCH (09:57)
[2015-12-21] MEDS: amLODIPine BESYLATE 10 MG TABLET (FP) GT SCH (09:57)
[2015-12-21] MEDS: LISINOPRIL 20 MG TABLET (FP) GT SCH (09:57)
[2015-12-21] MEDS: METOPROLOL TARTRATE 50 MG TABLET (FP) GT SCH ×2 (09:57→22:23)
[2015-12-21] MEDS: AMINO ACIDS/PROTEIN HYDROLYS SUGAR-FREE 30 ML PACKET PO SCH ×2 (09:58→17:05)
[2015-12-21] MEDS: LACTOBACILLUS ACIDOPHILUS 1 EACH TAB (FP) PO SCH (09:58)
[2015-12-21] MEDS: MULTIVITAMINS THERAPEUTIC GT SCH (11:27)
[2015-12-21] MEDS: guaiFENesin/D-METHORPHAN HB 10 ML UNIT-DOSE CUPS PO PRN (17:14)
[2015-12-21] MEDS: INSULIN DETEMIR 100 UNITS/ML MDV SQ SCH (22:23)
[2015-12-22] MEDS: INSULIN SLIDING SCALE (NOVOLOG) 1 VIAL SQ SCH ×5 (00:34→23:29)
[2015-12-22] MEDS: PANTOPRAZOLE SOD 40 MG SUSPENSION PACKET GT SCH (09:59)
[2015-12-22] MEDS: AMINO ACIDS/PROTEIN HYDROLYS SUGAR-FREE 30 ML PACKET PO SCH ×2 (09:59→18:09)
[2015-12-22] MEDS: METOPROLOL TARTRATE 50 MG TABLET (FP) GT SCH ×2 (09:59→22:01)
[2015-12-22] MEDS: LISINOPRIL 20 MG TABLET (FP) GT SCH (10:01)
[2015-12-22] MEDS: amLODIPine BESYLATE 10 MG TABLET (FP) GT SCH (10:01)
[2015-12-22] MEDS: LACTOBACILLUS ACIDOPHILUS 1 EACH TAB (FP) PO SCH (10:01)
[2015-12-22] MEDS: MULTIVITAMINS THERAPEUTIC GT SCH (12:03)
[2015-12-22] MEDS: INSULIN DETEMIR 100 UNITS/ML MDV SQ SCH (22:00)
[2015-12-23] MEDS: INSULIN SLIDING SCALE (NOVOLOG) 1 VIAL SQ SCH ×3 (05:18→18:11)
[2015-12-23] MEDS: AMINO ACIDS/PROTEIN HYDROLYS SUGAR-FREE 30 ML PACKET PO SCH ×2 (09:16→18:11)
[2015-12-23] MEDS: LACTOBACILLUS ACIDOPHILUS 1 EACH TAB (FP) PO SCH (09:16)
[2015-12-23] MEDS: amLODIPine BESYLATE 10 MG TABLET (FP) GT SCH (09:17)
[2015-12-23] MEDS: LISINOPRIL 20 MG TABLET (FP) GT SCH (09:17)
[2015-12-23] MEDS: PANTOPRAZOLE SOD 40 MG SUSPENSION PACKET GT SCH (09:18)
[2015-12-23] MEDS: METOPROLOL TARTRATE 50 MG TABLET (FP) GT SCH ×2 (09:18→21:57)
[2015-12-23] MEDS: MULTIVITAMINS THERAPEUTIC GT SCH (14:00)
--- NOTE | 2015-12-23 18:24 | PN ---
Progress Note (short form) - Note Progress Note: Subjective: .unable to obtain hx , no events Objective: Last Vital Signs Temp Pulse Resp BP Pulse Ox 99.4 F 90 20 141/85 99 12/23/15 15:07 12/23/15 18:17 12/23/15 15:07 12/23/15 15:07 12/23/15 18:17 Physical Exam: NAD .sleeping . CV: RRR, no MRG lungs:course breath sounds b/l anteriorly ext: no edema on legs. abd: soft, NT, ND , nl BS PEG Laboratory Results - last 24 hr 12/22/15 12/23/15 12/23/15 23:26 05:13 12:57 POC Glucometer 179 138 177 Assessment/Plan: 75 yo M with PMH HTN, DM, inguinal hernia a/w BRBPR and melena with multiple syncopal episodes. Dx with persistent diverticular bleed with R hemicolectomy, course complicated with CVA now in the ICU unresponsive and anoxic brain injury had tracheostomy on 07/23. also s/p PEG placement and iliac artery bleed s /p embolization 09/03/15. received a course of ABx for HCAp in Oct/nov 1-acute GI bleed, s/p colonoscopy and R hemicolectomy. no further bleed 2- Anoxic brain injury and CVA, s/p Trach 07/23. s/p PEG 3- HTN: cont meds . 4- DM : cont insulin 5- nutrition through PEG : at goal 60 cc/hr DNR DNR
[2015-12-23] MEDS: INSULIN DETEMIR 100 UNITS/ML MDV SQ SCH (21:56)
[2015-12-23] MEDS: ACETAMINOPHEN 650 MG/20.3 ML ORAL SOLUTION (CUPS) GT PRN (23:50)
[2015-12-24] MEDS: INSULIN SLIDING SCALE (NOVOLOG) 1 VIAL SQ SCH ×4 (00:07→18:30)
[2015-12-24 05:04] LABS: URINE APPEARANCE SLCLOUDY; URINE BILIRUBIN NEGATIVE (NEGATIVE); URINE BLOOD NEGATIVE (NEGATIVE); URINE COLOR YELLOW; URINE GLUCOSE (UA) NEGATIVE (NEGATIVE); URINE KETONE NEGATIVE (NEGATIVE); URINE LEUK ESTERASE NEGATIVE (NEGATIVE); URINE NITRITE NEGATIVE (NEGATIVE); URINE PROTEIN NEGATIVE (NEGATIVE); URINE UROBILINOGEN NEGATIVE E.U./dl (0.2-1.0)
[2015-12-24] MEDS: LACTOBACILLUS ACIDOPHILUS 1 EACH TAB (FP) PO SCH (10:38)
[2015-12-24] MEDS: LISINOPRIL 20 MG TABLET (FP) GT SCH (10:38)
[2015-12-24] MEDS: amLODIPine BESYLATE 10 MG TABLET (FP) GT SCH (10:39)
[2015-12-24] MEDS: PANTOPRAZOLE SOD 40 MG SUSPENSION PACKET GT SCH (10:39)
[2015-12-24] MEDS: AMINO ACIDS/PROTEIN HYDROLYS SUGAR-FREE 30 ML PACKET PO SCH ×2 (10:39→18:30)
[2015-12-24] MEDS: METOPROLOL TARTRATE 50 MG TABLET (FP) GT SCH ×2 (10:39→22:15)
[2015-12-24] MEDS: MULTIVITAMINS THERAPEUTIC GT SCH (10:42)
[2015-12-24] MEDS: ACETAMINOPHEN 650 MG/20.3 ML ORAL SOLUTION (CUPS) GT PRN (10:52)
--- NOTE | 2015-12-24 20:01 | PN ---
Progress Note (short form) - Note Progress Note: Subjective: .unable to obtain hx ,had fever last night . Objective: Last Vital Signs Temp Pulse Resp BP Pulse Ox 98.3 F 85 20 152/88 98 12/24/15 17:25 12/24/15 17:25 12/24/15 17:25 12/24/15 17:25 12/24/15 11:33 Physical Exam: NAD .sleeping . CV: RRR, no MRG lungs:course breath sounds b/l anteriorly ext: no edema on legs. abd: soft, NT, ND , nl BS PEG Laboratory Results - last 24 hr 12/24/15 12/24/15 12/24/15 00:06 03:07 06:26 POC Glucometer 220 183 Urine Color Yellow Urine Appearance Slcloudy Urine pH 5.0 Ur Specific [place] 1.020 Urine Protein Negative Urine Glucose (UA) Negative Urine Ketones Negative Urine Blood Negative Urine Nitrite Negative Urine Bilirubin Negative Urine Urobilinogen Negative Ur Leukocyte Esterase Negative 12/24/15 12/24/15 12:31 17:54 POC Glucometer 207 166 Urine Color Urine Appearance Urine pH Ur Specific [place] Urine Protein Urine Glucose (UA) Urine Ketones Urine Blood Urine Nitrite Urine Bilirubin Urine Urobilinogen Ur Leukocyte Esterase Assessment/Plan: 75 yo M with PMH HTN, DM, inguinal hernia a/w BRBPR and melena with multiple syncopal episodes. Dx with persistent diverticular bleed with R hemicolectomy, course complicated with CVA now in the ICU unresponsive and anoxic brain injury had tracheostomy on 07/23. also s/p PEG placement and iliac artery bleed s /p embolization 09/03/15. received a course of ABx for HCAp in Oct/nov 1-fever : unclear source. Cxray to me looks unchanged form before . UA clean. blood cx sent . fever resolved this am . check CBC in am will monitor off abx 2- acute GI bleed, s/p colonoscopy and R hemicolectomy. no further bleed 3- Anoxic brain injury and CVA, s/p Trach 07/23. s/p PEG 4- HTN: cont meds . 5- DM : cont insulin 6- nutrition through PEG : at goal 60 cc/hr 7- Add DVT prophylaxis heparin sq. he has not been bleeding and Hb has been stable . DNR
[2015-12-24] MEDS: HEPARIN NA (PORCINE) 5,000 UNITS/ML 1ML VIAL SQ SCH (22:15)
[2015-12-24] MEDS: INSULIN DETEMIR 100 UNITS/ML MDV SQ SCH (22:33)
[2015-12-25] MEDS: INSULIN SLIDING SCALE (NOVOLOG) 1 VIAL SQ SCH ×5 (00:06→23:10)
[2015-12-25] MEDS: ACETAMINOPHEN 650 MG/20.3 ML ORAL SOLUTION (CUPS) GT PRN (03:57)
[2015-12-25] MEDS: HEPARIN NA (PORCINE) 5,000 UNITS/ML 1ML VIAL SQ SCH ×3 (06:01→23:09)
[2015-12-25] MEDS: AMINO ACIDS/PROTEIN HYDROLYS SUGAR-FREE 30 ML PACKET PO SCH ×2 (08:43→18:15)
[2015-12-25 09:01] LABS: BASOPHIL 0.2 % (0-2.0); EOSINOPHIL 3.4 % (0-4.5); MCH 28.4 pg (25.7-33.7); MCHC 32.7 g/dl (32.0-35.9); MEAN CELL VOLUME 86.9 fl (80-96); MEAN PLT VOLUME 9.1 fl (7.5-11.1); NEUTROPHILS 62.2 % (42.8-82.8); PLATELET COUNT 199 K/MM3 (134-434); RDW 15.3 % (11.9-15.9)
[2015-12-25 09:29] LABS: CALCIUM 10.1 mg/dL (8.5-10.1); CREATININE 0.8 mg/dL (0.7-1.3)
[2015-12-25] MEDS: LACTOBACILLUS ACIDOPHILUS 1 EACH TAB (FP) PO SCH (11:05)
[2015-12-25] MEDS: amLODIPine BESYLATE 10 MG TABLET (FP) GT SCH (11:10)
[2015-12-25] MEDS: METOPROLOL TARTRATE 50 MG TABLET (FP) GT SCH ×2 (11:10→23:10)
[2015-12-25] MEDS: LISINOPRIL 20 MG TABLET (FP) GT SCH (11:11)
[2015-12-25] MEDS: PANTOPRAZOLE SOD 40 MG SUSPENSION PACKET GT SCH (11:11)
[2015-12-25] MEDS: MULTIVITAMINS THERAPEUTIC GT SCH (11:12)
--- NOTE | 2015-12-25 18:18 | PN ---
Progress Note (short form) - Note Progress Note: Subjective: .unable to obtain hx , cont to have fever Objective: Last Vital Signs Temp Pulse Resp BP Pulse Ox 99.0 F 89 20 146/82 96 12/25/15 15:57 12/25/15 15:57 12/25/15 15:57 12/25/15 10:00 12/25/15 11:45 Physical Exam: NAD .sleeping . CV: RRR, no MRG lungs:course breath sounds b/l anteriorly ext: no edema on legs. abd: soft, NT, ND , nl BS PEG skin : stage 3 sacral decub with granulating tissue and no secretions . healed ulcers onears Laboratory Results - last 24 hr 12/24/15 12/25/15 12/25/15 22:31 05:54 07:45 WBC 13.0 H D RBC 3.39 L Hgb 9.6 L Hct 29.4 L MCV 86.9 MCHC 32.7 RDW 15.3 Plt Count 199 MPV 9.1 Neutrophils % 62.2 Lymphocytes % 27.8 D Monocytes % 6.4 Eosinophils % 3.4 Basophils % 0.2 Sodium 142 Potassium 3.5 Chloride 102 Carbon Dioxide 29 Anion Gap 11 BUN 24 H Creatinine 0.8 POC Glucometer 221 181 Random Glucose 147 H D Calcium 10.1 12/25/15 12:28 WBC RBC Hgb Hct MCV MCHC RDW Plt Count MPV Neutrophils % Lymphocytes % Monocytes % Eosinophils % Basophils % Sodium Potassium Chloride Carbon Dioxide Anion Gap BUN Creatinine POC Glucometer 184 Random Glucose Calcium Assessment/Plan: 75 yo M with PMH HTN, DM, inguinal hernia a/w BRBPR and melena with multiple syncopal episodes. Dx with persistent diverticular bleed with R hemicolectomy, course complicated with CVA now in the ICU unresponsive and anoxic brain injury had tracheostomy on 07/23. also s/p PEG placement and iliac artery bleed s /p embolization 09/03/15. received a course of ABx for HCAp in Oct/nov 1-fever : unclear source. Cxray to me looks unchanged form before . UA clean. blood cx pending - order lactate - repeat cxray - cbc in am - check US for DVt as a source of fever - skin with no source of infection - if chest xray co nt to show infiltrate will start abx 2- acute GI bleed, s/p colonoscopy and R hemicolectomy. no further bleed 3- Anoxic brain injury and CVA, s/p Trach 07/23. s/p PEG 4- HTN: cont meds . 5- DM : cont insulin 6- nutrition through PEG : at goal 60 cc/hr 7- DVT prophylaxis heparin sq. DNR
[2015-12-25] MEDS: INSULIN DETEMIR 100 UNITS/ML MDV SQ SCH (23:10)
[2015-12-26] MEDS: HEPARIN NA (PORCINE) 5,000 UNITS/ML 1ML VIAL SQ SCH ×3 (06:51→23:23)
[2015-12-26] MEDS: INSULIN SLIDING SCALE (NOVOLOG) 1 VIAL SQ SCH ×3 (06:52→17:01)
[2015-12-26] MEDS: AMINO ACIDS/PROTEIN HYDROLYS SUGAR-FREE 30 ML PACKET PO SCH ×2 (09:06→17:02)
[2015-12-26] MEDS: PANTOPRAZOLE SOD 40 MG SUSPENSION PACKET GT SCH (09:06)
[2015-12-26] MEDS: METOPROLOL TARTRATE 50 MG TABLET (FP) GT SCH ×2 (09:07→23:23)
[2015-12-26] MEDS: LACTOBACILLUS ACIDOPHILUS 1 EACH TAB (FP) PO SCH (09:08)
[2015-12-26] MEDS: LISINOPRIL 20 MG TABLET (FP) GT SCH (09:08)
[2015-12-26] MEDS: amLODIPine BESYLATE 10 MG TABLET (FP) GT SCH (09:08)
[2015-12-26 09:19] LABS: BASOPHIL 0.8 % (0-2.0); MCH 28.7 pg (25.7-33.7); MCHC 33.1 g/dl (32.0-35.9); MEAN CELL VOLUME 86.8 fl (80-96); MEAN PLT VOLUME 8.7 fl (7.5-11.1); NEUTROPHILS 61.7 % (42.8-82.8); PLATELET COUNT 212 K/MM3 (134-434); RDW 15.1 % (11.9-15.9)
[2015-12-26 09:34] LABS: INR 1.29 (0.80-1.00); PROTHROMBIN TIME (PATIENT) 13.6 SEC (9.4-11.6)
--- NOTE | 2015-12-26 10:52 | PN ---
Progress Note (short form) - Note Progress Note: Subjective: .unable to obtain hx , fever resolved Objective: Last Vital Signs Temp Pulse Resp BP Pulse Ox 98.2 F 81 20 163/73 99 12/26/15 06:00 12/26/15 06:00 12/26/15 06:00 12/26/15 06:00 12/25/15 21:00 Physical Exam: NAD .sleeping . CV: RRR, no MRG lungs:course breath sounds b/l anteriorly ext: no edema on legs. abd: soft, NT, ND , nl BS PEG skin : stage 3 sacral decub with granulating tissue and no secretions . healed ulcers on ears Laboratory Results - last 24 hr 12/25/15 12/25/15 12/25/15 12:28 12:45 18:18 WBC RBC Hgb Hct MCV MCHC RDW Plt Count MPV Neutrophils % Lymphocytes % Monocytes % Eosinophils % Basophils % INR POC Glucometer 184 165 Lactic Acid 1.217 12/25/15 12/26/15 12/26/15 23:08 06:49 08:45 WBC 8.0 D RBC 3.29 L Hgb 9.5 L Hct 28.6 L MCV 86.8 MCHC 33.1 RDW 15.1 Plt Count 212 MPV 8.7 Neutrophils % 61.7 Lymphocytes % 24.6 Monocytes % 6.9 Eosinophils % 6.0 H Basophils % 0.8 D INR 1.29 H POC Glucometer 170 158 Lactic Acid Assessment/Plan: 75 yo M with PMH HTN, DM, inguinal hernia a/w BRBPR and melena with multiple syncopal episodes. Dx with persistent diverticular bleed with R hemicolectomy, course complicated with CVA now in the ICU unresponsive and anoxic brain injury had tracheostomy on 07/23. also s/p PEG placement and iliac artery bleed s /p embolization 09/03/15. received a course of ABx for HCAp in Oct/nov 1-fever : likely from DVTs , infectious w/u neg so far - repeat cxray reviewed. no convincing infiltrate - cbc in am - skin with no source of infection 2- b/l DVTs : due to the severe bleeds he had ( Gi and gluteal muscles ) , will be risky to anticoagulate. - will consult vascular for IVC filter placement - spoke to daughter and updated her . explained risk of bleed with AC , and d/w her IVC filter . she will need to d/w vascular . appreciate input. 3- acute GI bleed, s/p colonoscopy and R hemicolectomy. no further bleed 4- Anoxic brain injury and CVA, s/p Trach 07/23. s/p PEG 5- HTN: cont meds .slightly elevated today 6- DM : cont insulin 7- nutrition through PEG : at goal 60 cc/hr 8- DVT prophylaxis heparin sq. DNR
[2015-12-26] MEDS: guaiFENesin/D-METHORPHAN HB 10 ML UNIT-DOSE CUPS PO PRN (11:14)
[2015-12-26] MEDS: MULTIVITAMINS THERAPEUTIC GT SCH (11:15)
[2015-12-26] MEDS: INSULIN DETEMIR 100 UNITS/ML MDV SQ SCH (22:00)
[2015-12-27] MEDS: INSULIN SLIDING SCALE (NOVOLOG) 1 VIAL SQ SCH ×4 (00:57→17:56)
[2015-12-27] MEDS: HEPARIN NA (PORCINE) 5,000 UNITS/ML 1ML VIAL SQ SCH ×3 (05:28→21:50)
[2015-12-27 08:19] LABS: BASOPHIL 0.6 % (0-2.0); EOSINOPHIL 2.7 % (0-4.5); MCH 28.4 pg (25.7-33.7); MCHC 33.2 g/dl (32.0-35.9); MEAN CELL VOLUME 85.6 fl (80-96); MEAN PLT VOLUME 8.2 fl (7.5-11.1); NEUTROPHILS 64.7 % (42.8-82.8); PLATELET COUNT 247 K/MM3 (134-434); RDW 15.1 % (11.9-15.9); WHITE BLOOD COUNT 9.7 K/mm3 (4.0-10.0)
[2015-12-27] MEDS: AMINO ACIDS/PROTEIN HYDROLYS SUGAR-FREE 30 ML PACKET PO SCH ×2 (10:05→17:57)
[2015-12-27] MEDS: LACTOBACILLUS ACIDOPHILUS 1 EACH TAB (FP) PO SCH (10:05)
[2015-12-27] MEDS: MULTIVITAMINS THERAPEUTIC GT SCH ×2 (10:05→13:57)
[2015-12-27] MEDS: amLODIPine BESYLATE 10 MG TABLET (FP) GT SCH (10:51)
[2015-12-27] MEDS: METOPROLOL TARTRATE 50 MG TABLET (FP) GT SCH ×2 (10:51→23:19)
[2015-12-27] MEDS: LISINOPRIL 20 MG TABLET (FP) GT SCH (10:51)
[2015-12-27] MEDS: PANTOPRAZOLE SOD 40 MG SUSPENSION PACKET GT SCH (10:52)
--- NOTE | 2015-12-27 18:03 | PN ---
Progress Note (short form) - Note Progress Note: Subjective: .unable to obtain hx , fever resolved Objective: Last Vital Signs Temp Pulse Resp BP Pulse Ox 97.7 F 71 20 142/80 97 12/27/15 14:29 12/27/15 14:52 12/27/15 14:29 12/27/15 10:39 12/27/15 14:52 Physical Exam: NAD .sleeping . CV: RRR, no MRG lungs:course breath sounds b/l anteriorly ext: no edema on legs. abd: soft, NT, ND , nl BS PEG Laboratory Results - last 24 hr 12/26/15 12/27/15 12/27/15 22:24 05:55 07:20 WBC 9.7 RBC 3.61 L Hgb 10.3 L Hct 30.9 L MCV 85.6 MCHC 33.2 RDW 15.1 Plt Count 247 MPV 8.2 Neutrophils % 64.7 Lymphocytes % 26.6 Monocytes % 5.4 Eosinophils % 2.7 Basophils % 0.6 POC Glucometer 199 196 12/27/15 10:58 WBC RBC Hgb Hct MCV MCHC RDW Plt Count MPV Neutrophils % Lymphocytes % Monocytes % Eosinophils % Basophils % POC Glucometer 179 Assessment/Plan: 75 yo M with PMH HTN, DM, inguinal hernia a/w BRBPR and melena with multiple syncopal episodes. Dx with persistent diverticular bleed with R hemicolectomy, course complicated with CVA now in the ICU unresponsive and anoxic brain injury had tracheostomy on 07/23. also s/p PEG placement and iliac artery bleed s /p embolization 09/03/15. received a course of ABx for HCAp in Oct/nov 1-fever : likely from DVTs , infectious w/u neg so far - no source of infectin 2- b/l DVTs : due to the severe bleeds he had ( Gi and gluteal muscles ) , will be risky to anticoagulate. - vascular consult for IVC filter placement is pending still - daughter would likekto d/w surgeon . 3- acute GI bleed, s/p colonoscopy and R hemicolectomy. no further bleed 4- Anoxic brain injury and CVA, s/p Trach 07/23. s/p PEG 5- HTN: cont meds . 6- DM : cont insulin 7- nutrition through PEG : at goal 60 cc/hr 8- DVT prophylaxis heparin sq. DNR
--- NOTE | 2015-12-27 19:23 | CONSULT ---
Consult - Past Medical History Cardio/Vascular: Yes: HTN Endocrine: Yes: Diabetes Mellitus - Past Surgical History Past Surgical History: Yes: Hernia Repair - Alcohol/Substance Use Hx Alcohol Use: No - Smoking History Smoking history: Never smoked Have you smoked in the past 12 months: No Aproximately how many cigarettes per day: 0 Home Medications - Allergies Allergies/Adverse Reactions: Allergies Allergy/AdvReac Type Severity Reaction Status Date / Time No Known Allergies Allergy Verified 06/26/15 21:31 - Home Medications Home Medications: Ambulatory Orders Amino Acids/Protein Hydrolys [Prostat Sugar-Free Packet -] 30 ml GT DAILY packet 08/09/15 Amlodipine Besylate [Norvasc -] 10 mg GT DAILY tablet 08/09/15 Chlorhexidine Gluconate [Peridex -] 15 ml MM BID cup 08/09/15 Insulin (Levemir) [Levemir Flexpen -] 25 units SQ HS pen 08/09/15 Insulin (Novolog) [Novolog Flexpen -] 3 units SQ Q6HPO pen 08/09/15 Insulin Sliding Scale [Novolog Vial Sliding Scale -] 0 units SQ Q6HPO pen 08/09 Lisinopril [Prinivil -] 20 mg GT DAILY tablet 08/09/15 Metoprolol Tartrate Injection [Lopressor Injection -] 5 mg IVPB Q6H PRN #0 vial 08/09/15 Metoprolol Tartrate [Lopressor -] 100 mg GT BID tablet 08/09/15 Ondansetron Injection [Zofran Injection] 4 mg IVPB Q6H PRN #0 vial 08/09/15 Pantoprazole Suspension [Protonix Packets For Oral Suspension -] 40 mg GT DAILY packet 08/09/15 Vancomycin Oral Solution 125 mg GT Q6HPO ml 08/09/15 Family Disease History - Family Disease History Other Family History: non-contributory Physical Exam Vital Signs: Vital Signs Temperature 98.5 F 12/27/15 18:41 Pulse Rate 90 12/27/15 18:41 Respiratory Rate 22 12/27/15 18:41 Blood Pressure 147/88 12/27/15 18:41 O2 Sat by Pulse Oximetry (%) 98 12/27/15 18:36 Labs: CBC, BMP 12/27/15 07:20 12/25/15 07:45 Assessment/Plan Vascular Surgery 75 yo M with PMH HTN, DM, inguinal hernia a/w BRBPR and melena with multiple syncopal episodes. Dx with persistent diverticular bleed with R hemicolectomy, course complicated with CVA now in the ICU unresponsive and anoxic brain injury had tracheostomy on 07/23. also s/p PEG placement and iliac artery bleed s /p embolization 09/03/15. received a course of ABx for HCAp in Oct/nov 1-fever : likely from DVTs , infectious w/u neg so far - no source of infectin 2- b/l DVTs : due to the severe bleeds he had ( Gi and gluteal muscles ) , will be risky to anticoagulate. PE Head - NC/AT lung - CTA Heart - RRR Abd - soft,,nt,nd Ext -warm, pink. A/P EXtensive bleeding history now with left common femoral vein DVt. CAnnot be anticoaulated and would benefit from IVC filter. Can do filter SUN morning. Will speak to family. Thanks for the consult. Rodriguez Moser DO
[2015-12-27] MEDS: INSULIN DETEMIR 100 UNITS/ML MDV SQ SCH (23:19)
[2015-12-28] MEDS: INSULIN SLIDING SCALE (NOVOLOG) 1 VIAL SQ SCH ×4 (00:08→17:31)
[2015-12-28] MEDS: HEPARIN NA (PORCINE) 5,000 UNITS/ML 1ML VIAL SQ SCH ×2 (06:08→14:54)
[2015-12-28] MEDS: AMINO ACIDS/PROTEIN HYDROLYS SUGAR-FREE 30 ML PACKET PO SCH ×2 (09:30→16:50)
[2015-12-28] MEDS: LACTOBACILLUS ACIDOPHILUS 1 EACH TAB (FP) PO SCH (10:25)
[2015-12-28] MEDS: amLODIPine BESYLATE 10 MG TABLET (FP) GT SCH (10:25)
[2015-12-28] MEDS: PANTOPRAZOLE SOD 40 MG SUSPENSION PACKET GT SCH (10:25)
[2015-12-28] MEDS: MULTIVITAMINS THERAPEUTIC GT SCH (10:25)
[2015-12-28] MEDS: METOPROLOL TARTRATE 50 MG TABLET (FP) GT SCH ×2 (10:25→21:56)
[2015-12-28] MEDS: LISINOPRIL 20 MG TABLET (FP) GT SCH (10:25)
--- NOTE | 2015-12-28 19:51 | PN ---
Progress Note (short form) - Note Progress Note: Subjective: .unable to obtain hx Objective: Last Vital Signs Temp Pulse Resp BP Pulse Ox 98.4 F 82 20 140/86 100 12/28/15 18:17 12/28/15 18:17 12/28/15 18:17 12/28/15 18:17 12/28/15 11:50 Physical Exam: NAD .sleeping . CV: RRR, no MRG lungs: course breath sounds b/l anteriorly ext: no edema on legs. abd: soft, NT, ND , nl BS PEG Laboratory Results - last 24 hr 12/27/15 12/28/15 12/28/15 21:25 06:11 11:12 POC Glucometer 180 174 189 12/28/15 16:50 POC Glucometer 192 Assessment/Plan: 75 yo M with PMH HTN, DM, inguinal hernia a/w BRBPR and melena with multiple syncopal episodes. Dx with persistent diverticular bleed with R hemicolectomy, course complicated with CVA now in the ICU unresponsive and anoxic brain injury had tracheostomy on 07/23. also s/p PEG placement and iliac artery bleed s /p embolization 09/03/15. received a course of ABx for HCAp in Oct/nov 1-fever : likely from DVTs , infectious w/u neg so far 2- b/l DVTs : due to the severe bleeds he had ( Gi and gluteal muscle ) , will be risky to anticoagulate. - appreciate Dr. Moser help - for IVC filter tomorrow - NPO after mid night - hold heparin sq tonight 3- acute GI bleed, s/p colonoscopy and R hemicolectomy. no further bleed 4- Anoxic brain injury and CVA, s/p Trach 07/23. s/p PEG 5- HTN: cont meds . 6- DM : cont insulin 7- nutrition through PEG : at goal 60 cc/hr 8- DVT prophylaxis heparin sq to be held tonight DNR daughter was updated yesterday
[2015-12-28] MEDS: INSULIN DETEMIR 100 UNITS/ML MDV SQ SCH (22:43)
[2015-12-29] MEDS: INSULIN SLIDING SCALE (NOVOLOG) 1 VIAL SQ SCH ×4 (08:05→17:06)
--- NOTE | 2015-12-29 08:46 | PN ---
Progress Note (short form) - Note Progress Note: his patient is new to [facility] 11/18/2015,was admitted on 06/27/2015. Date of admission 06/27/2015 for GI bleed. Events noted. Patient is a 75 yo M with PMHx HTN, DM, inguinal hernia was admitted on 2014 for Bright red blood per rectum and melena with multiple syncopal episodes. Dxgnosed with persistent diverticular bleed s/p colonoscopy ,s/p R hemicolectomy due to GI bleed on 06/29/2015. Course was complicated with CVA. patient was in the ICU unresponsive with anoxic brain injury had tracheostomy on 07/23/2015 .and then transferred to floor. Patient is going for IVC filter today. Patient was found to have bilateral DVT. Vital Signs Temperature 98.0 F 12/29/15 06:00 Pulse Rate 94 H 12/29/15 06:00 Respiratory Rate 20 12/29/15 06:00 Blood Pressure 157/58 12/29/15 06:00 O2 Sat by Pulse Oximetry (%) 95 12/28/15 21:00 GENERAL: The patient has periods of somnolence, periods of wakefulness. Awake today, moving head back and forth in the absence of any type of stimulus. No vocalization, no grimacing. No indication of pain. HEAD: Normal with no signs of trauma. EYES: Pupils equal, round and reactive to light, sclera anicteric, conjunctiva clear. ENT: Ears normal, nares patent. Moist mucous membranes. Trach collar, thin, white/sharma secretions. NECK: Normal range of motion, supple without lymphadenopathy, JVD, or masses. LUNGS: Coarse breath sounds. No wheezes, and no crackles. HEART: Regular rate and rhythm, normal S1 and S2 without murmur, rub or gallop. ABDOMEN: Soft, nontender, normoactive bowel sounds. No guarding, no rebound. UPPER EXTREMITIES: 2+ pulses, warm, well-perfused, no edema. LOWER EXTREMITIES: 2+ pulses, warm, well-perfused, no edema. NEUROLOGICAL: Unable to assess. SKIN: Wounds not visualized today. CBCD WBC 9.7 K/mm3 (4.0-10.0) 12/27/15 07:20 RBC 3.61 M/mm3 (4.00-5.60) L 12/27/15 07:20 Hgb 10.3 GM/dL (11.7-16.9) L 12/27/15 07:20 Hct 30.9 % (35.4-49) L 12/27/15 07:20 MCV 85.6 fl (80-96) 12/27/15 07:20 MCHC 33.2 g/dl (32.0-35.9) 12/27/15 07:20 RDW 15.1 % (11.9-15.9) 12/27/15 07:20 Plt Count 247 K/MM3 (134-434) 12/27/15 07:20 MPV 8.2 fl (7.5-11.1) 12/27/15 07:20 CMP Sodium 142 mmol/L (136-145) 12/25/15 07:45 Potassium 3.5 mmol/L (3.5-5.1) 12/25/15 07:45 Chloride 102 mmol/L (98-107) 12/25/15 07:45 Carbon Dioxide 29 mmol/L (21-32) 12/25/15 07:45 Anion Gap 11 (8-16) 12/25/15 07:45 BUN 24 mg/dL (7-18) H 12/25/15 07:45 Creatinine 0.8 mg/dL (0.7-1.3) 12/25/15 07:45 Creat Clearance w eGFR > 60 (>60) 12/20/15 06:50 Random Glucose 147 mg/dL (74-106) H D 12/25/15 07:45 Calcium 10.1 mg/dL (8.5-10.1) 12/25/15 07:45 Total Bilirubin 0.3 mg/dL (0.2-1.0) 12/20/15 06:50 AST 14 U/L (15-37) L 12/20/15 06:50 ALT 20 U/L (12-78) 12/20/15 06:50 Alkaline Phosphatase 97 U/L (45-117) 12/20/15 06:50 Total Protein 7.6 g/dl (6.4-8.2) 12/20/15 06:50 Albumin 3.4 g/dl (3.4-5.0) 12/20/15 06:50 CARDIAC ENZYMES Creatine Kinase 62 IU/L (38-174) 06/28/15 09:35 Troponin I 0.07 ng/ml (0.03-0.5) D 07/09/15 05:00 Current Medications Generic Name Dose Route Start Last Admin Trade Name Freq PRN Reason Stop Dose Admin Acetaminophen 650 mg 12/08/15 13:53 12/25/15 03:57 Tylenol Oral Solution - GT 650 mg Q6H PRN Administration FEVER Amino Acids 30 ml 12/08/15 17:30 12/28/15 16:50 Prostat Sugar-Free Packet - PO 30 ml BID@0800,1730 KWAKU Administration Amlodipine Besylate 10 mg 12/09/15 10:00 12/28/15 10:25 Norvasc - GT 10 mg DAILY KWAKU Administration Guaifenesin 10 ml 12/02/15 17:59 12/26/15 11:14 Robitussin Dm - PO 10 ml Q6H PRN Administration COUGH Heparin Sodium (Porcine) 5,000 unit 12/24/15 22:00 12/28/15 14:54 Heparin - SQ 5,000 unit TID KWAKU Administration Ibuprofen 200 mg 12/08/15 13:57 Motrin Oral Suspension - PO Q6H PRN FEVER Insulin Aspart 1 vial 12/08/15 18:00 12/29/15 08:05 Novolog Vial Sliding Scale - SQ Not Given Q6HPO [facility] Protocol Insulin Detemir 28 units 12/08/15 22:00 12/28/15 22:43 Levemir Vial SQ 28 units HS KWAKU Administration Lactobacillus Acidophilus 1 tab 12/09/15 10:00 12/28/15 10:25 Bacid - PO 1 tab DAILY KWAKU Administration Lisinopril 40 mg 12/09/15 10:00 12/28/15 10:25 Prinivil - GT 40 mg DAILY KWAKU Administration Metoprolol Tartrate 5 mg 12/08/15 14:02 Lopressor Injection - IVPB Q6H PRN HYPERTENSION Metoprolol Tartrate 150 mg 12/08/15 22:00 12/28/15 21:56 Lopressor - GT 150 mg BID KWAKU Administration Multivitamins 5 ml 12/09/15 10:00 12/28/15 10:25 Thera-Plus - GT 5 ml DAILY KWAKU Administration Pantoprazole Sodium 40 mg 12/09/15 10:00 12/28/15 10:25 Protonix Packets For Oral Suspension - GT 40 mg DAILY KWAKU Administration Medication Instructions Recorded Amino Acids/Protein Hydrolys 30 ml GT DAILY packet 08/09/15 [Prostat Sugar-Free Packet -] Amlodipine Besylate [Norvasc -] 10 mg GT DAILY tablet 08/09/15 Chlorhexidine Gluconate [Peridex -] 15 ml MM BID cup 08/09/15 Insulin (Levemir) [Levemir Flexpen 25 units SQ HS pen 08/09/15 -] Insulin (Novolog) [Novolog Flexpen 3 units SQ Q6HPO pen 08/09/15 -] Insulin Sliding Scale [Novolog 0 units SQ Q6HPO pen 08/09/15 Vial Sliding Scale -] Lisinopril [Prinivil -] 20 mg GT DAILY tablet 08/09/15 Metoprolol Tartrate Injection 5 mg IVPB Q6H PRN #0 vial 08/09/15 [Lopressor Injection -] Metoprolol Tartrate [Lopressor -] 100 mg GT BID tablet 08/09/15 Ondansetron Injection [Zofran 4 mg IVPB Q6H PRN #0 vial 08/09/15 Injection] Pantoprazole Suspension [Protonix 40 mg GT DAILY packet 08/09/15 Packets For Oral Suspension -] Vancomycin Oral Solution 125 mg GT Q6HPO ml 08/09/15 Hepatic Panel Total Bilirubin 0.3 mg/dL (0.2-1.0) 12/20/15 06:50 AST 14 U/L (15-37) L 12/20/15 06:50 ALT 20 U/L (12-78) 12/20/15 06:50 Alkaline Phosphatase 97 U/L (45-117) 12/20/15 06:50 Albumin 3.4 g/dl (3.4-5.0) 12/20/15 06:50 Assessment/plan: 75 year old male with PMHx of HTN, IDDM, inguinal hernia who presented to the ED with diverticular bleed s/p Righ hemicolectomy with 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 PT developed HCAP and completed 7 days course of vanc/zosyn on 12/01/15. no change in his outcome, weekly labs.stable. 1. B/L DVT of lower extremities going for SCD 2. Anoxic brain injury s/p brainstem CVAs - Mental status unchanged 3. Respiratory failure secondary to anoxic brain injury - Cont trach collar , duonebs PRN ,Albuterol neb PRN 4. HTN Cont lisinopril, metoprolol, amlodipine 5. Multiple pressure ulcers, Stage III sacrum healing - Stage II left ear healing, Turn and position q2h 6. IDDM, Levemir 28 units HS - ISS BGM ACHS FEN: - Tube feeds: Vital 1.5 @60ml/hr continue - PT for passive ROM CODE STATUS: DNR
[2015-12-29] MEDS: amLODIPine BESYLATE 10 MG TABLET (FP) GT SCH (10:16)
[2015-12-29] MEDS: METOPROLOL TARTRATE 50 MG TABLET (FP) GT SCH ×2 (10:16→22:20)
[2015-12-29] MEDS: LACTOBACILLUS ACIDOPHILUS 1 EACH TAB (FP) PO SCH (10:16)
[2015-12-29] MEDS: AMINO ACIDS/PROTEIN HYDROLYS SUGAR-FREE 30 ML PACKET PO SCH ×2 (10:16→17:10)
[2015-12-29] MEDS: MULTIVITAMINS THERAPEUTIC GT SCH (10:17)
[2015-12-29] MEDS: PANTOPRAZOLE SOD 40 MG SUSPENSION PACKET GT SCH (10:17)
[2015-12-29] MEDS: LISINOPRIL 20 MG TABLET (FP) GT SCH (10:17)
--- NOTE | 2015-12-29 10:24 | OP ---
Operative Note - Note: Operative Date: 12/29/15 Pre-Operative Diagnosis: DVT, GI bleed Operation: Insertion of IVC filter, with venogram Post-Operative Diagnosis: Same as Pre-op Surgeon: Rodriguez Moser Anesthesia: Fractional Estimated Blood Loss (mls): 2 Operative Report Dictated: Yes
[2015-12-29] MEDS: INSULIN DETEMIR 100 UNITS/ML MDV SQ SCH (22:19)
[2015-12-30] MEDS: INSULIN SLIDING SCALE (NOVOLOG) 1 VIAL SQ SCH ×5 (06:07→23:54)
[2015-12-30] MEDS: AMINO ACIDS/PROTEIN HYDROLYS SUGAR-FREE 30 ML PACKET PO SCH ×2 (08:35→17:26)
[2015-12-30] MEDS: ACETAMINOPHEN 650 MG/20.3 ML ORAL SOLUTION (CUPS) GT PRN (09:38)
[2015-12-30] MEDS: LISINOPRIL 20 MG TABLET (FP) GT SCH (09:39)
[2015-12-30] MEDS: PANTOPRAZOLE SOD 40 MG SUSPENSION PACKET GT SCH (09:39)
[2015-12-30] MEDS: METOPROLOL TARTRATE 50 MG TABLET (FP) GT SCH ×2 (09:39→21:58)
[2015-12-30] MEDS: LACTOBACILLUS ACIDOPHILUS 1 EACH TAB (FP) PO SCH (09:39)
[2015-12-30] MEDS: amLODIPine BESYLATE 10 MG TABLET (FP) GT SCH (09:40)
[2015-12-30] MEDS: MULTIVITAMINS THERAPEUTIC GT SCH (09:40)
--- NOTE | 2015-12-30 18:34 | PN ---
Progress Note (short form) - Note Progress Note: Vital Signs This patient is new to [facility] 11/18/2015,was admitted on 06/27/2015. Date of admission 06/27/2015 for GI bleed. Events noted. Patient is a 75 yo M with PMHx HTN, DM, inguinal hernia was admitted on 2014 for Bright red blood per rectum and melena with multiple syncopal episodes. Dxgnosed with persistent diverticular bleed s/p colonoscopy ,s/p R hemicolectomy due to GI bleed on 06/29/2015. Course was complicated with CVA. patient was in the ICU unresponsive with anoxic brain injury had tracheostomy on 07/23/2015 .and then transferred to floor. Patient is s/t IVC filter . Patient was found to have bilateral DVT. Temperature 98.4 F 12/30/15 14:00 Pulse Rate 69 12/30/15 14:00 Respiratory Rate 18 12/30/15 14:00 Blood Pressure 149/87 12/30/15 14:00 O2 Sat by Pulse Oximetry (%) 100 12/30/15 10:30 GENERAL: The patient has periods of somnolence, periods of wakefulness. Awake today, moving head back and forth in the absence of any type of stimulus. No vocalization, no grimacing. No indication of pain. HEAD: Normal with no signs of trauma. EYES: Pupils equal, round and reactive to light, sclera anicteric, conjunctiva clear. ENT: Ears normal, nares patent. Moist mucous membranes. Trach collar, thin, white/sharma secretions. NECK: Normal range of motion, supple without lymphadenopathy, JVD, or masses. LUNGS: Coarse breath sounds. No wheezes, and no crackles. HEART: Regular rate and rhythm, normal S1 and S2 without murmur, rub or gallop. ABDOMEN: Soft, nontender, normoactive bowel sounds. No guarding, no rebound. UPPER EXTREMITIES: 2+ pulses, warm, well-perfused, no edema. LOWER EXTREMITIES: 2+ pulses, warm, well-perfused, no edema. NEUROLOGICAL: Unable to assess. SKIN: Wounds not visualized today. CBCD WBC 9.7 K/mm3 (4.0-10.0) 12/27/15 07:20 RBC 3.61 M/mm3 (4.00-5.60) L 12/27/15 07:20 Hgb 10.3 GM/dL (11.7-16.9) L 12/27/15 07:20 Hct 30.9 % (35.4-49) L 12/27/15 07:20 MCV 85.6 fl (80-96) 12/27/15 07:20 MCHC 33.2 g/dl (32.0-35.9) 12/27/15 07:20 RDW 15.1 % (11.9-15.9) 12/27/15 07:20 Plt Count 247 K/MM3 (134-434) 12/27/15 07:20 MPV 8.2 fl (7.5-11.1) 12/27/15 07:20 CMP Sodium 142 mmol/L (136-145) 12/25/15 07:45 Potassium 3.5 mmol/L (3.5-5.1) 12/25/15 07:45 Chloride 102 mmol/L (98-107) 12/25/15 07:45 Carbon Dioxide 29 mmol/L (21-32) 12/25/15 07:45 Anion Gap 11 (8-16) 12/25/15 07:45 BUN 24 mg/dL (7-18) H 12/25/15 07:45 Creatinine 0.8 mg/dL (0.7-1.3) 12/25/15 07:45 Creat Clearance w eGFR > 60 (>60) 12/20/15 06:50 Random Glucose 147 mg/dL (74-106) H D 12/25/15 07:45 Calcium 10.1 mg/dL (8.5-10.1) 12/25/15 07:45 Total Bilirubin 0.3 mg/dL (0.2-1.0) 12/20/15 06:50 AST 14 U/L (15-37) L 12/20/15 06:50 ALT 20 U/L (12-78) 12/20/15 06:50 Alkaline Phosphatase 97 U/L (45-117) 12/20/15 06:50 Total Protein 7.6 g/dl (6.4-8.2) 12/20/15 06:50 Albumin 3.4 g/dl (3.4-5.0) 12/20/15 06:50 CARDIAC ENZYMES Creatine Kinase 62 IU/L (38-174) 06/28/15 09:35 Troponin I 0.07 ng/ml (0.03-0.5) D 07/09/15 05:00 Current Medications Generic Name Dose Route Start Last Admin Trade Name Freq PRN Reason Stop Dose Admin Acetaminophen 650 mg 12/29/15 10:43 12/30/15 09:38 Tylenol Oral Solution - GT 650 mg Q6H PRN Administration FEVER Amino Acids 30 ml 12/29/15 17:30 12/30/15 17:26 Prostat Sugar-Free Packet - PO 30 ml BID@0800,1730 KWAKU Administration Amlodipine Besylate 10 mg 12/30/15 10:00 12/30/15 09:40 Norvasc - GT 10 mg DAILY KWAKU Administration Guaifenesin 10 ml 12/29/15 10:43 Robitussin Dm - PO Q6H PRN COUGH Ibuprofen 200 mg 12/29/15 10:43 Motrin Oral Suspension - PO Q6H PRN FEVER Insulin Aspart 1 vial 12/29/15 12:00 12/30/15 17:27 Novolog Vial Sliding Scale - SQ 2 units Q6HPO KWAKU Administration Protocol Insulin Detemir 28 units 12/29/15 22:00 12/29/15 22:19 Levemir Vial SQ 28 units HS KWAKU Administration Lactobacillus Acidophilus 1 tab 12/30/15 10:00 12/30/15 09:39 Bacid - PO 1 tab DAILY KWAKU Administration Lisinopril 40 mg 12/30/15 10:00 12/30/15 09:39 Prinivil - GT 40 mg DAILY KWAKU Administration Metoprolol Tartrate 150 mg 12/29/15 22:00 12/30/15 09:39 Lopressor - GT 150 mg BID KWAKU Administration Metoprolol Tartrate 5 mg 12/29/15 10:43 Lopressor Injection - IVPB Q6H PRN HYPERTENSION Multivitamins 5 ml 12/30/15 10:00 12/30/15 09:40 Thera-Plus - GT 5 ml DAILY KWAKU Administration Pantoprazole Sodium 40 mg 12/30/15 10:00 12/30/15 09:39 Protonix Packets For Oral Suspension - GT 40 mg DAILY KWAKU Administration s/p :Insertion of IVC filter, with venogram Assessment/plan: 75 year old male with PMHx of HTN, IDDM, inguinal hernia who presented to the ED with diverticular bleed s/p Righ hemicolectomy with 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 PT developed HCAP and completed 7 days course of vanc/zosyn on 12/01/15. no change in his outcome, weekly labs.stable. 1. 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 2. Anoxic brain injury s/p brainstem CVAs - Mental status unchanged 3. Respiratory failure secondary to anoxic brain injury - Cont trach collar , duonebs PRN ,Albuterol neb PRN 4. HTN Cont lisinopril, metoprolol, amlodipine 5. Multiple pressure ulcers, Stage III sacrum healing - Stage II left ear healing, Turn and position q2h 6. IDDM, Levemir 28 units HS - ISS BGM ACHS FEN: - Tube feeds: Vital 1.5 @60ml/hr continue - PT for passive ROM CODE STATUS: DNR
[2015-12-30] MEDS: INSULIN DETEMIR 100 UNITS/ML MDV SQ SCH (21:58)
[2015-12-31] MEDS: INSULIN SLIDING SCALE (NOVOLOG) 1 VIAL SQ SCH ×4 (06:51→23:49)
[2015-12-31] MEDS: AMINO ACIDS/PROTEIN HYDROLYS SUGAR-FREE 30 ML PACKET PO SCH ×2 (09:30→16:53)
--- NOTE | 2015-12-31 09:56 | PN ---
Progress Note (short form) - Note Progress Note: his patient is new to [place] 11/18/2015,was admitted on 06/27/2015. Date of admission 06/27/2015 for GI bleed. Events noted. Patient is a 75 yo M with PMHx HTN, DM, inguinal hernia was admitted on 2014 for Bright red blood per rectum and melena with multiple syncopal episodes. Dxgnosed with persistent diverticular bleed s/p colonoscopy ,s/p R hemicolectomy due to GI bleed on 06/29/2015. Course was complicated with CVA. patient was in the ICU unresponsive with anoxic brain injury had tracheostomy on 07/23/2015 .and then transferred to floor. Patient is/p IVC filter due to having bilateral DVT. Vital Signs Temperature 98.6 F 12/31/15 06:00 Pulse Rate 91 H 12/31/15 06:00 Respiratory Rate 20 12/31/15 06:00 Blood Pressure 149/87 12/31/15 06:00 O2 Sat by Pulse Oximetry (%) 100 12/30/15 21:00 GENERAL: The patient has periods of somnolence, periods of wakefulness. Awake today, moving head back and forth in the absence of any type of stimulus. No vocalization, no grimacing. No indication of pain. HEAD: Normal with no signs of trauma. EYES: Pupils equal, round and reactive to light, sclera anicteric, conjunctiva clear. ENT: Ears normal, nares patent. Moist mucous membranes. Trach collar, thin, white/sharma secretions. NECK: Normal range of motion, supple without lymphadenopathy, JVD, or masses. LUNGS: Coarse breath sounds. No wheezes, and no crackles. HEART: Regular rate and rhythm, normal S1 and S2 without murmur, rub or gallop. ABDOMEN: Soft, nontender, normoactive bowel sounds. No guarding, no rebound. UPPER EXTREMITIES: 2+ pulses, warm, well-perfused, no edema. LOWER EXTREMITIES: 2+ pulses, warm, well-perfused, no edema. NEUROLOGICAL: Unable to assess. SKIN: Wounds not visualized today. CBCD WBC 9.7 K/mm3 (4.0-10.0) 12/27/15 07:20 RBC 3.61 M/mm3 (4.00-5.60) L 12/27/15 07:20 Hgb 10.3 GM/dL (11.7-16.9) L 12/27/15 07:20 Hct 30.9 % (35.4-49) L 12/27/15 07:20 MCV 85.6 fl (80-96) 12/27/15 07:20 MCHC 33.2 g/dl (32.0-35.9) 12/27/15 07:20 RDW 15.1 % (11.9-15.9) 12/27/15 07:20 Plt Count 247 K/MM3 (134-434) 12/27/15 07:20 MPV 8.2 fl (7.5-11.1) 12/27/15 07:20 CMP Sodium 142 mmol/L (136-145) 12/25/15 07:45 Potassium 3.5 mmol/L (3.5-5.1) 12/25/15 07:45 Chloride 102 mmol/L (98-107) 12/25/15 07:45 Carbon Dioxide 29 mmol/L (21-32) 12/25/15 07:45 Anion Gap 11 (8-16) 12/25/15 07:45 BUN 24 mg/dL (7-18) H 12/25/15 07:45 Creatinine 0.8 mg/dL (0.7-1.3) 12/25/15 07:45 Creat Clearance w eGFR > 60 (>60) 12/20/15 06:50 Random Glucose 147 mg/dL (74-106) H D 12/25/15 07:45 Calcium 10.1 mg/dL (8.5-10.1) 12/25/15 07:45 Total Bilirubin 0.3 mg/dL (0.2-1.0) 12/20/15 06:50 AST 14 U/L (15-37) L 12/20/15 06:50 ALT 20 U/L (12-78) 12/20/15 06:50 Alkaline Phosphatase 97 U/L (45-117) 12/20/15 06:50 Total Protein 7.6 g/dl (6.4-8.2) 12/20/15 06:50 Albumin 3.4 g/dl (3.4-5.0) 12/20/15 06:50 CARDIAC ENZYMES Creatine Kinase 62 IU/L (38-174) 06/28/15 09:35 Troponin I 0.07 ng/ml (0.03-0.5) D 07/09/15 05:00 Current Medications Generic Name Dose Route Start Last Admin Trade Name Freq PRN Reason Stop Dose Admin Acetaminophen 650 mg 12/29/15 10:43 12/30/15 09:38 Tylenol Oral Solution - GT 650 mg Q6H PRN Administration FEVER Amino Acids 30 ml 12/29/15 17:30 12/31/15 09:30 Prostat Sugar-Free Packet - PO 30 ml BID@0800,1730 KWAKU Administration Amlodipine Besylate 10 mg 12/30/15 10:00 12/30/15 09:40 Norvasc - GT 10 mg DAILY KWAKU Administration Guaifenesin 10 ml 12/29/15 10:43 Robitussin Dm - PO Q6H PRN COUGH Ibuprofen 200 mg 12/29/15 10:43 Motrin Oral Suspension - PO Q6H PRN FEVER Insulin Aspart 1 vial 12/29/15 12:00 12/31/15 06:51 Novolog Vial Sliding Scale - SQ 2 units Q6HPO KWAKU Administration Protocol Insulin Detemir 28 units 12/29/15 22:00 12/30/15 21:58 Levemir Vial SQ 28 units HS KWAKU Administration Lactobacillus Acidophilus 1 tab 12/30/15 10:00 12/30/15 09:39 Bacid - PO 1 tab DAILY KWAKU Administration Lisinopril 40 mg 12/30/15 10:00 12/30/15 09:39 Prinivil - GT 40 mg DAILY KWAKU Administration Metoprolol Tartrate 150 mg 12/29/15 22:00 12/30/15 21:58 Lopressor - GT 150 mg BID KWAKU Administration Metoprolol Tartrate 5 mg 12/29/15 10:43 Lopressor Injection - IVPB Q6H PRN HYPERTENSION Multivitamins 5 ml 12/30/15 10:00 12/30/15 09:40 Thera-Plus - GT 5 ml DAILY KWAKU Administration Pantoprazole Sodium 40 mg 12/30/15 10:00 12/30/15 09:39 Protonix Packets For Oral Suspension - GT 40 mg DAILY KWAKU Administration Medication Instructions Recorded Amino Acids/Protein Hydrolys 30 ml GT DAILY packet 08/09/15 [Prostat Sugar-Free Packet -] Amlodipine Besylate [Norvasc -] 10 mg GT DAILY tablet 08/09/15 Chlorhexidine Gluconate [Peridex -] 15 ml MM BID cup 08/09/15 Insulin (Levemir) [Levemir Flexpen 25 units SQ HS pen 08/09/15 -] Insulin (Novolog) [Novolog Flexpen 3 units SQ Q6HPO pen 08/09/15 -] Insulin Sliding Scale [Novolog 0 units SQ Q6HPO pen 08/09/15 Vial Sliding Scale -] Lisinopril [Prinivil -] 20 mg GT DAILY tablet 08/09/15 Metoprolol Tartrate Injection 5 mg IVPB Q6H PRN #0 vial 08/09/15 [Lopressor Injection -] Metoprolol Tartrate [Lopressor -] 100 mg GT BID tablet 08/09/15 Ondansetron Injection [Zofran 4 mg IVPB Q6H PRN #0 vial 08/09/15 Injection] Pantoprazole Suspension [Protonix 40 mg GT DAILY packet 08/09/15 Packets For Oral Suspension -] Vancomycin Oral Solution 125 mg GT Q6HPO ml 08/09/15 Assessment/plan: 75 year old male with PMHx of HTN, IDDM, inguinal hernia who presented to the ED with diverticular bleed s/p Righ hemicolectomy with 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 PT developed HCAP and completed 7 days course of vanc/zosyn on 12/01/15. no change in his outcome, weekly labs.stable . 1. 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 2. Anoxic brain injury s/p brainstem CVAs - Mental status unchanged 3. Respiratory failure secondary to anoxic brain injury - Cont trach collar , duonebs PRN ,Albuterol neb PRN 4. HTN Cont lisinopril, metoprolol, amlodipine 5. Multiple pressure ulcers, Stage III sacrum healing - Stage II left ear healing, Turn and position q2h 6. IDDM, Levemir 28 units HS - ISS BGM ACHS FEN: - Tube feeds: Vital 1.5 @60ml/hr continue - PT for passive ROM CODE STATUS: DNR
[2015-12-31] MEDS: LACTOBACILLUS ACIDOPHILUS 1 EACH TAB (FP) PO SCH (10:44)
[2015-12-31] MEDS: amLODIPine BESYLATE 10 MG TABLET (FP) GT SCH (10:44)
[2015-12-31] MEDS: LISINOPRIL 20 MG TABLET (FP) GT SCH (10:45)
[2015-12-31] MEDS: METOPROLOL TARTRATE 50 MG TABLET (FP) GT SCH ×2 (10:45→22:04)
[2015-12-31] MEDS: PANTOPRAZOLE SOD 40 MG SUSPENSION PACKET GT SCH (10:46)
[2015-12-31] MEDS: MULTIVITAMINS THERAPEUTIC GT SCH (12:21)
[2015-12-31] MEDS: INSULIN DETEMIR 100 UNITS/ML MDV SQ SCH (22:04)
[2016-01-01] MEDS: INSULIN SLIDING SCALE (NOVOLOG) 1 VIAL SQ SCH ×3 (06:03→18:12)
[2016-01-01] MEDS: AMINO ACIDS/PROTEIN HYDROLYS SUGAR-FREE 30 ML PACKET PO SCH ×2 (08:00→18:12)
[2016-01-01] MEDS: amLODIPine BESYLATE 10 MG TABLET (FP) GT SCH (10:44)
[2016-01-01] MEDS: LACTOBACILLUS ACIDOPHILUS 1 EACH TAB (FP) PO SCH (10:44)
[2016-01-01] MEDS: METOPROLOL TARTRATE 50 MG TABLET (FP) GT SCH ×2 (10:44→21:35)
[2016-01-01] MEDS: LISINOPRIL 20 MG TABLET (FP) GT SCH (10:45)
[2016-01-01] MEDS: PANTOPRAZOLE SOD 40 MG SUSPENSION PACKET GT SCH (10:45)
[2016-01-01] MEDS: MULTIVITAMINS THERAPEUTIC GT SCH (11:40)
--- NOTE | 2016-01-01 16:42 | PN ---
Progress Note (short form) - Note Progress Note: [facility],was admitted on 06/27/2015. Date of admission 06/27/2015 for GI bleed. Events noted. Patient is a 75 yo M with PMHx HTN, DM, inguinal hernia was admitted on 2014 for Bright red blood per rectum and melena with multiple syncopal episodes. Dxgnosed with persistent diverticular bleed s/p colonoscopy ,s/p R hemicolectomy due to GI bleed on 06/29/2015. Course was complicated with CVA. patient was in the ICU unresponsive with anoxic brain injury had tracheostomy on 07/23/2015 .and then transferred to floor. Patient is/p IVC filter due to having bilateral DVT. Vital Signs Temperature 98.3 F 01/01/16 14:59 Pulse Rate 76 01/01/16 14:59 Respiratory Rate 18 01/01/16 14:59 Blood Pressure 167/95 01/01/16 14:59 O2 Sat by Pulse Oximetry (%) 98 01/01/16 09:00 GENERAL: The patient has periods of somnolence, periods of wakefulness. Awake today, moving head back and forth in the absence of any type of stimulus. No vocalization, no grimacing. No indication of pain. HEAD: Normal with no signs of trauma. EYES: Pupils equal, round and reactive to light, sclera anicteric, conjunctiva clear. ENT: Ears normal, nares patent. Moist mucous membranes. Trach collar, thin, white/sharma secretions. NECK: Normal range of motion, supple without lymphadenopathy, JVD, or masses. LUNGS: Coarse breath sounds. No wheezes, and no crackles. HEART: Regular rate and rhythm, normal S1 and S2 without murmur, rub or gallop. ABDOMEN: Soft, nontender, normoactive bowel sounds. No guarding, no rebound. EXTREMITIES: NEUROLOGICAL: Unable to assess. SKIN: Wounds not visualized today. CBCD WBC 9.7 K/mm3 (4.0-10.0) 12/27/15 07:20 RBC 3.61 M/mm3 (4.00-5.60) L 12/27/15 07:20 Hgb 10.3 GM/dL (11.7-16.9) L 12/27/15 07:20 Hct 30.9 % (35.4-49) L 12/27/15 07:20 MCV 85.6 fl (80-96) 12/27/15 07:20 MCHC 33.2 g/dl (32.0-35.9) 12/27/15 07:20 RDW 15.1 % (11.9-15.9) 12/27/15 07:20 Plt Count 247 K/MM3 (134-434) 12/27/15 07:20 MPV 8.2 fl (7.5-11.1) 12/27/15 07:20 CMP Sodium 142 mmol/L (136-145) 12/25/15 07:45 Potassium 3.5 mmol/L (3.5-5.1) 12/25/15 07:45 Chloride 102 mmol/L (98-107) 12/25/15 07:45 Carbon Dioxide 29 mmol/L (21-32) 12/25/15 07:45 Anion Gap 11 (8-16) 12/25/15 07:45 BUN 24 mg/dL (7-18) H 12/25/15 07:45 Creatinine 0.8 mg/dL (0.7-1.3) 12/25/15 07:45 Creat Clearance w eGFR > 60 (>60) 12/20/15 06:50 Random Glucose 147 mg/dL (74-106) H D 12/25/15 07:45 Calcium 10.1 mg/dL (8.5-10.1) 12/25/15 07:45 Total Bilirubin 0.3 mg/dL (0.2-1.0) 12/20/15 06:50 AST 14 U/L (15-37) L 12/20/15 06:50 ALT 20 U/L (12-78) 12/20/15 06:50 Alkaline Phosphatase 97 U/L (45-117) 12/20/15 06:50 Total Protein 7.6 g/dl (6.4-8.2) 12/20/15 06:50 Albumin 3.4 g/dl (3.4-5.0) 12/20/15 06:50 CARDIAC ENZYMES Creatine Kinase 62 IU/L (38-174) 06/28/15 09:35 Troponin I 0.07 ng/ml (0.03-0.5) D 07/09/15 05:00 Current Medications Generic Name Dose Route Start Last Admin Trade Name Freq PRN Reason Stop Dose Admin Acetaminophen 650 mg 12/29/15 10:43 12/30/15 09:38 Tylenol Oral Solution - GT 650 mg Q6H PRN Administration FEVER Amino Acids 30 ml 12/29/15 17:30 01/01/16 08:00 Prostat Sugar-Free Packet - PO 30 ml BID@0800,1730 KWAKU Administration Amlodipine Besylate 10 mg 12/30/15 10:00 01/01/16 10:44 Norvasc - GT 10 mg DAILY KWAKU Administration Guaifenesin 10 ml 12/29/15 10:43 Robitussin Dm - PO Q6H PRN COUGH Ibuprofen 200 mg 12/29/15 10:43 Motrin Oral Suspension - PO Q6H PRN FEVER Insulin Aspart 1 vial 12/29/15 12:00 01/01/16 11:40 Novolog Vial Sliding Scale - SQ Not Given Q6HPO [facility] Protocol Insulin Detemir 28 units 12/29/15 22:00 12/31/15 22:04 Levemir Vial SQ 28 units HS KWAKU Administration Lactobacillus Acidophilus 1 tab 12/30/15 10:00 01/01/16 10:44 Bacid - PO 1 tab DAILY KWAKU Administration Lisinopril 40 mg 12/30/15 10:00 01/01/16 10:45 Prinivil - GT 40 mg DAILY KWAKU Administration Metoprolol Tartrate 150 mg 12/29/15 22:00 01/01/16 10:44 Lopressor - GT 150 mg BID KWAKU Administration Metoprolol Tartrate 5 mg 12/29/15 10:43 Lopressor Injection - IVPB Q6H PRN HYPERTENSION Multivitamins 5 ml 12/30/15 10:00 01/01/16 11:40 Thera-Plus - GT 5 ml DAILY KWAKU Administration Pantoprazole Sodium 40 mg 12/30/15 10:00 01/01/16 10:45 Protonix Packets For Oral Suspension - GT 40 mg DAILY KWAKU Administration Medication Instructions Recorded Amino Acids/Protein Hydrolys 30 ml GT DAILY packet 08/09/15 [Prostat Sugar-Free Packet -] Amlodipine Besylate [Norvasc -] 10 mg GT DAILY tablet 08/09/15 Chlorhexidine Gluconate [Peridex -] 15 ml MM BID cup 08/09/15 Insulin (Levemir) [Levemir Flexpen 25 units SQ HS pen 08/09/15 -] Insulin (Novolog) [Novolog Flexpen 3 units SQ Q6HPO pen 08/09/15 -] Insulin Sliding Scale [Novolog 0 units SQ Q6HPO pen 08/09/15 Vial Sliding Scale -] Lisinopril [Prinivil -] 20 mg GT DAILY tablet 08/09/15 Metoprolol Tartrate Injection 5 mg IVPB Q6H PRN #0 vial 08/09/15 [Lopressor Injection -] Metoprolol Tartrate [Lopressor -] 100 mg GT BID tablet 08/09/15 Ondansetron Injection [Zofran 4 mg IVPB Q6H PRN #0 vial 08/09/15 Injection] Pantoprazole Suspension [Protonix 40 mg GT DAILY packet 08/09/15 Packets For Oral Suspension -] Vancomycin Oral Solution 125 mg GT Q6HPO ml 08/09/15 Assessment/plan: 75 year old male with PMHx of HTN, IDDM, inguinal hernia who presented to the ED with diverticular bleed s/p Righ hemicolectomy with 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 PT developed HCAP and completed 7 days course of vanc/zosyn on 12/01/15. no change in his outcome, weekly labs.stable . 1. 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 2. Anoxic brain injury s/p brainstem CVAs , Mental status unchanged 3. Respiratory failure secondary to anoxic brain injury - Cont trach collar , duonebs PRN ,Albuterol neb PRN 4. HTN Cont lisinopril, metoprolol, amlodipine 5. Multiple pressure ulcers, Stage III sacrum healing - Stage II left ear healing, Turn and position q2h 6. IDDM, Levemir 28 units HS - ISS BGM ACHS FEN: - Tube feeds: Vital 1.5 @60ml/hr continue - PT for passive ROM CODE STATUS: DNR
[2016-01-01] MEDS: INSULIN DETEMIR 100 UNITS/ML MDV SQ SCH (21:35)
[2016-01-02] MEDS: INSULIN SLIDING SCALE (NOVOLOG) 1 VIAL SQ SCH ×4 (01:43→17:35)
[2016-01-02] MEDS: AMINO ACIDS/PROTEIN HYDROLYS SUGAR-FREE 30 ML PACKET PO SCH ×2 (08:00→17:35)
[2016-01-02] MEDS: LACTOBACILLUS ACIDOPHILUS 1 EACH TAB (FP) PO SCH (10:01)
[2016-01-02] MEDS: METOPROLOL TARTRATE 50 MG TABLET (FP) GT SCH ×2 (10:01→21:41)
[2016-01-02] MEDS: amLODIPine BESYLATE 10 MG TABLET (FP) GT SCH (10:02)
[2016-01-02] MEDS: MULTIVITAMINS THERAPEUTIC GT SCH (10:02)
[2016-01-02] MEDS: LISINOPRIL 20 MG TABLET (FP) GT SCH (10:02)
[2016-01-02] MEDS: PANTOPRAZOLE SOD 40 MG SUSPENSION PACKET GT SCH (10:02)
--- NOTE | 2016-01-02 18:44 | PN ---
Progress Note (short form) - Note Progress Note: This patient is [place] [facility] 11/[facility],was admitted on 06/27/2015. Date of admission 06/27/2015 for GI bleed. Events noted. Patient is a 75 yo M with PMHx HTN, DM, inguinal hernia was admitted on 2014 for Bright red blood per rectum and melena with multiple syncopal episodes. Dxgnosed with persistent diverticular bleed s/p colonoscopy ,s/p R hemicolectomy due to GI bleed on 06/29/2015. Course was complicated with CVA. patient was in the ICU unresponsive with anoxic brain injury had tracheostomy on 07/23/2015 .and then transferred to floor. Patient is/p IVC filter due to having bilateral DVT. Vital Signs Temperature 100.2 F H 01/02/16 14:52 Pulse Rate 78 01/02/16 14:52 Respiratory Rate 20 01/02/16 14:52 Blood Pressure 140/86 01/02/16 14:52 O2 Sat by Pulse Oximetry (%) 97 01/02/16 12:13 GENERAL: The patient has periods of somnolence, periods of wakefulness. Awake today, moving head back and forth in the absence of any type of stimulus. No vocalization, no grimacing. No indication of pain. HEAD: Normal with no signs of trauma. EYES: Pupils equal, round and reactive to light, sclera anicteric, conjunctiva clear. ENT: Ears normal, nares patent. Moist mucous membranes. Trach collar, thin, white/sharma secretions. NECK: Normal range of motion, supple without lymphadenopathy, JVD, or masses. LUNGS: Coarse breath sounds. No wheezes, and no crackles. HEART: Regular rate and rhythm, normal S1 and S2 without murmur, rub or gallop. ABDOMEN: Soft, nontender, normoactive bowel sounds. No guarding, no rebound. EXTREMITIES: 2+ pulses, warm, well-perfused, no edema. NEUROLOGICAL: Unable to assess. SKIN: Wounds not visualized today. CBCD WBC 9.7 K/mm3 (4.0-10.0) 12/27/15 07:20 RBC 3.61 M/mm3 (4.00-5.60) L 12/27/15 07:20 Hgb 10.3 GM/dL (11.7-16.9) L 12/27/15 07:20 Hct 30.9 % (35.4-49) L 12/27/15 07:20 MCV 85.6 fl (80-96) 12/27/15 07:20 MCHC 33.2 g/dl (32.0-35.9) 12/27/15 07:20 RDW 15.1 % (11.9-15.9) 12/27/15 07:20 Plt Count 247 K/MM3 (134-434) 12/27/15 07:20 MPV 8.2 fl (7.5-11.1) 12/27/15 07:20 CMP Sodium 142 mmol/L (136-145) 12/25/15 07:45 Potassium 3.5 mmol/L (3.5-5.1) 12/25/15 07:45 Chloride 102 mmol/L (98-107) 12/25/15 07:45 Carbon Dioxide 29 mmol/L (21-32) 12/25/15 07:45 Anion Gap 11 (8-16) 12/25/15 07:45 BUN 24 mg/dL (7-18) H 12/25/15 07:45 Creatinine 0.8 mg/dL (0.7-1.3) 12/25/15 07:45 Creat Clearance w eGFR > 60 (>60) 12/20/15 06:50 Random Glucose 147 mg/dL (74-106) H D 12/25/15 07:45 Calcium 10.1 mg/dL (8.5-10.1) 12/25/15 07:45 Total Bilirubin 0.3 mg/dL (0.2-1.0) 12/20/15 06:50 AST 14 U/L (15-37) L 12/20/15 06:50 ALT 20 U/L (12-78) 12/20/15 06:50 Alkaline Phosphatase 97 U/L (45-117) 12/20/15 06:50 Total Protein 7.6 g/dl (6.4-8.2) 12/20/15 06:50 Albumin 3.4 g/dl (3.4-5.0) 12/20/15 06:50 CARDIAC ENZYMES Creatine Kinase 62 IU/L (38-174) 06/28/15 09:35 Troponin I 0.07 ng/ml (0.03-0.5) D 07/09/15 05:00 Current Medications Generic Name Dose Route Start Last Admin Trade Name Freq PRN Reason Stop Dose Admin Acetaminophen 650 mg 12/29/15 10:43 12/30/15 09:38 Tylenol Oral Solution - GT 650 mg Q6H PRN Administration FEVER Amino Acids 30 ml 12/29/15 17:30 01/02/16 17:35 Prostat Sugar-Free Packet - PO 30 ml BID@0800,1730 KWAKU Administration Amlodipine Besylate 10 mg 12/30/15 10:00 01/02/16 10:02 Norvasc - GT 10 mg DAILY KWAKU Administration Guaifenesin 10 ml 12/29/15 10:43 Robitussin Dm - PO Q6H PRN COUGH Ibuprofen 200 mg 12/29/15 10:43 Motrin Oral Suspension - PO Q6H PRN FEVER Insulin Aspart 1 vial 12/29/15 12:00 01/02/16 17:35 Novolog Vial Sliding Scale - SQ 2 units Q6HPO KWAKU Administration Protocol Insulin Detemir 28 units 12/29/15 22:00 01/01/16 21:35 Levemir Vial SQ 28 units HS KWAKU Administration Lactobacillus Acidophilus 1 tab 12/30/15 10:00 01/02/16 10:01 Bacid - PO 1 tab DAILY KWAKU Administration Lisinopril 40 mg 12/30/15 10:00 01/02/16 10:02 Prinivil - GT 40 mg DAILY KWAKU Administration Metoprolol Tartrate 150 mg 12/29/15 22:00 01/02/16 10:01 Lopressor - GT 150 mg BID KWAKU Administration Metoprolol Tartrate 5 mg 12/29/15 10:43 Lopressor Injection - IVPB Q6H PRN HYPERTENSION Multivitamins 5 ml 12/30/15 10:00 01/02/16 10:02 Thera-Plus - GT 5 ml DAILY KWAKU Administration Pantoprazole Sodium 40 mg 12/30/15 10:00 01/02/16 10:02 Protonix Packets For Oral Suspension - GT 40 mg DAILY KWAKU Administration Medication Instructions Recorded Amino Acids/Protein Hydrolys 30 ml GT DAILY packet 08/09/15 [Prostat Sugar-Free Packet -] Amlodipine Besylate [Norvasc -] 10 mg GT DAILY tablet 08/09/15 Chlorhexidine Gluconate [Peridex -] 15 ml MM BID cup 08/09/15 Insulin (Levemir) [Levemir Flexpen 25 units SQ HS pen 08/09/15 -] Insulin (Novolog) [Novolog Flexpen 3 units SQ Q6HPO pen 08/09/15 -] Insulin Sliding Scale [Novolog 0 units SQ Q6HPO pen 08/09/15 Vial Sliding Scale -] Lisinopril [Prinivil -] 20 mg GT DAILY tablet 08/09/15 Metoprolol Tartrate Injection 5 mg IVPB Q6H PRN #0 vial 08/09/15 [Lopressor Injection -] Metoprolol Tartrate [Lopressor -] 100 mg GT BID tablet 08/09/15 Ondansetron Injection [Zofran 4 mg IVPB Q6H PRN #0 vial 08/09/15 Injection] Pantoprazole Suspension [Protonix 40 mg GT DAILY packet 08/09/15 Packets For Oral Suspension -] Vancomycin Oral Solution 125 mg GT Q6HPO ml 08/09/15 Hepatic Panel Total Bilirubin 0.3 mg/dL (0.2-1.0) 12/20/15 06:50 AST 14 U/L (15-37) L 12/20/15 06:50 ALT 20 U/L (12-78) 12/20/15 06:50 Alkaline Phosphatase 97 U/L (45-117) 12/20/15 06:50 Albumin 3.4 g/dl (3.4-5.0) 12/20/15 06:50 Assessment/plan: 75 year old male with PMHx of HTN, IDDM, inguinal hernia who presented to the ED with diverticular bleed s/p Righ hemicolectomy with 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 PT developed HCAP and completed 7 days course of vanc/zosyn on 12/01/15. no change in his outcome, weekly labs.stable . 1. 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 2. Anoxic brain injury s/p brainstem CVAs , Mental status unchanged 3. Respiratory failure secondary to anoxic brain injury - Cont trach collar , duonebs PRN ,Albuterol neb PRN 4. HTN Cont lisinopril, metoprolol, amlodipine 5. Multiple pressure ulcers, Stage III sacrum healing - Stage II left ear healing, Turn and position q2h 6. IDDM, Levemir 28 units HS - ISS BGM ACHS FEN: - Tube feeds: Vital 1.5 @60ml/hr continue - PT for passive ROM CODE STATUS: DNR
[2016-01-02] MEDS: INSULIN DETEMIR 100 UNITS/ML MDV SQ SCH (21:41)
[2016-01-03] MEDS: INSULIN SLIDING SCALE (NOVOLOG) 1 VIAL SQ SCH ×5 (00:28→23:05)
--- NOTE | 2016-01-03 10:04 | OP ---
DATE OF OPERATION: / / OPERATION: Insertion of IVC filter with venacavagram. SURGEON: RODRIGUEZ TORRES MD PREOPERATIVE DIAGNOSIS: Deep venous thrombosis, gastrointestinal bleed. POSTOPERATIVE DIAGNOSIS: Deep venous thrombosis, gastrointestinal bleed. ANESTHESIA: Fractional BLOOD LOSS: 2 cc INDICATIONS: Mr. Maggi Mayfield is a [id number] that has a left common femoral vein DVT and a GI bleed and thus cannot be anticoagulated. Surgery was consulted for IVC filter placement. The patient's family was consented for the procedure understanding all risks, benefits and alternatives and was taken to the operating room. DESCRIPTION OF PROCEDURE: Once in the operating room he was laid on the operating table in supine manner and the area of the right groin was prepped and draped in sterile surgical manner. 10 cc of lidocaine 1% was injected there. We then took our micropuncture needle and punctured the right common femoral vein. A micropuncture wire was inserted. 5 [place] sheath was inserted. Micropuncture sheath was inserted. We then placed a 0.035 floppy guidewire under fluoroscopy up into the inferior vena cava. We then placed our IVC filter sheath to L3. We then shot a venacavagram by hand injection showing that the right and left renal veins came off at L1. That was then marked on the screen. We then pulled the filter into the sheath and the filter was then deployed between L2 and L3. completion venacavagram showed that the filter was in place. There was no extravasation of contrast. There was no migration of the filter and bilateral renal veins were patent. We then took out our sheath and pressure was held on the right groin for five minutes. After there was no bleeding, the area was wet and dried and Dermabond was placed. The patient tolerated the procedure. There were no complications. The patient was transferred to the PACU in stable condition. TOTAL BLOOD LOSS: 2 cc Rodriguez Torres MD CREATIVE CONSULTANT/htszd
[2016-01-03] MEDS: AMINO ACIDS/PROTEIN HYDROLYS SUGAR-FREE 30 ML PACKET PO SCH ×2 (12:14→18:08)
[2016-01-03] MEDS: LACTOBACILLUS ACIDOPHILUS 1 EACH TAB (FP) PO SCH (12:15)
[2016-01-03] MEDS: METOPROLOL TARTRATE 50 MG TABLET (FP) GT SCH ×2 (12:15→23:04)
[2016-01-03] MEDS: amLODIPine BESYLATE 10 MG TABLET (FP) GT SCH (12:17)
[2016-01-03] MEDS: LISINOPRIL 20 MG TABLET (FP) GT SCH (12:17)
[2016-01-03] MEDS: PANTOPRAZOLE SOD 40 MG SUSPENSION PACKET GT SCH (12:17)
[2016-01-03] MEDS: MULTIVITAMINS THERAPEUTIC GT SCH (12:18)
[2016-01-03] MEDS: guaiFENesin/D-METHORPHAN HB 10 ML UNIT-DOSE CUPS PO PRN (18:09)
--- NOTE | 2016-01-03 18:47 | PN ---
Progress Note (short form) - Note Progress Note: This patient is new to [facility] 11/18/2015,was admitted on 06/27/2015. Date of admission 06/27/2015 for GI bleed. Events noted. Patient is a 75 yo M with PMHx HTN, DM, inguinal hernia was admitted on 2014 for Bright red blood per rectum and melena with multiple syncopal episodes. Dxgnosed with persistent diverticular bleed s/p colonoscopy ,s/p R hemicolectomy due to GI bleed on 06/29/2015. Course was complicated with CVA. patient was in the ICU unresponsive with anoxic brain injury had tracheostomy on 07/23/2015 .and then transferred to floor. Patient is/p IVC filter due to having bilateral DVT. no new findings. no change his status. Vital Signs Temperature 98.8 F 01/03/16 18:40 Pulse Rate 86 01/03/16 18:40 Respiratory Rate 20 01/03/16 18:40 Blood Pressure 131/78 01/03/16 18:40 O2 Sat by Pulse Oximetry (%) 96 01/03/16 12:16 GENERAL: The patient has periods of somnolence, periods of wakefulness. Awake today, moving head back and forth in the absence of any type of stimulus. No vocalization, no grimacing. No indication of pain. HEAD: Normal with no signs of trauma. EYES: Pupils equal, round and reactive to light, sclera anicteric, conjunctiva clear. ENT: Ears normal, nares patent. Moist mucous membranes. Trach collar, thin, white/sharma secretions. NECK: Normal range of motion, supple without lymphadenopathy, JVD, or masses. LUNGS: Coarse breath sounds. No wheezes, and no crackles. HEART: Regular rate and rhythm, normal S1 and S2 without murmur, rub or gallop. ABDOMEN: Soft, nontender, normoactive bowel sounds. No guarding, no rebound. EXTREMITIES: 2+ pulses, warm, well-perfused, no edema. NEUROLOGICAL: Unable to assess. SKIN: Wounds not visualized today. CBCD WBC 9.7 K/mm3 (4.0-10.0) 12/27/15 07:20 RBC 3.61 M/mm3 (4.00-5.60) L 12/27/15 07:20 Hgb 10.3 GM/dL (11.7-16.9) L 12/27/15 07:20 Hct 30.9 % (35.4-49) L 12/27/15 07:20 MCV 85.6 fl (80-96) 12/27/15 07:20 MCHC 33.2 g/dl (32.0-35.9) 12/27/15 07:20 RDW 15.1 % (11.9-15.9) 12/27/15 07:20 Plt Count 247 K/MM3 (134-434) 12/27/15 07:20 MPV 8.2 fl (7.5-11.1) 12/27/15 07:20 CMP Sodium 142 mmol/L (136-145) 12/25/15 07:45 Potassium 3.5 mmol/L (3.5-5.1) 12/25/15 07:45 Chloride 102 mmol/L (98-107) 12/25/15 07:45 Carbon Dioxide 29 mmol/L (21-32) 12/25/15 07:45 Anion Gap 11 (8-16) 12/25/15 07:45 BUN 24 mg/dL (7-18) H 12/25/15 07:45 Creatinine 0.8 mg/dL (0.7-1.3) 12/25/15 07:45 Creat Clearance w eGFR > 60 (>60) 12/20/15 06:50 Random Glucose 147 mg/dL (74-106) H D 12/25/15 07:45 Calcium 10.1 mg/dL (8.5-10.1) 12/25/15 07:45 Total Bilirubin 0.3 mg/dL (0.2-1.0) 12/20/15 06:50 AST 14 U/L (15-37) L 12/20/15 06:50 ALT 20 U/L (12-78) 12/20/15 06:50 Alkaline Phosphatase 97 U/L (45-117) 12/20/15 06:50 Total Protein 7.6 g/dl (6.4-8.2) 12/20/15 06:50 Albumin 3.4 g/dl (3.4-5.0) 12/20/15 06:50 CARDIAC ENZYMES Creatine Kinase 62 IU/L (38-174) 06/28/15 09:35 Troponin I 0.07 ng/ml (0.03-0.5) D 07/09/15 05:00 Current Medications Generic Name Dose Route Start Last Admin Trade Name Freq PRN Reason Stop Dose Admin Acetaminophen 650 mg 12/29/15 10:43 12/30/15 09:38 Tylenol Oral Solution - GT 650 mg Q6H PRN Administration FEVER Amino Acids 30 ml 12/29/15 17:30 01/03/16 18:08 Prostat Sugar-Free Packet - PO 30 ml BID@0800,1730 KWAKU Administration Amlodipine Besylate 10 mg 12/30/15 10:00 01/03/16 12:17 Norvasc - GT 10 mg DAILY KWAKU Administration Guaifenesin 10 ml 12/29/15 10:43 01/03/16 18:09 Robitussin Dm - PO 10 ml Q6H PRN Administration COUGH Ibuprofen 200 mg 12/29/15 10:43 Motrin Oral Suspension - PO Q6H PRN FEVER Insulin Aspart 1 vial 12/29/15 12:00 01/03/16 18:08 Novolog Vial Sliding Scale - SQ 2 units Q6HPO KWAKU Administration Protocol Insulin Detemir 28 units 12/29/15 22:00 01/02/16 21:41 Levemir Vial SQ 28 units HS KWAKU Administration Lactobacillus Acidophilus 1 tab 12/30/15 10:00 01/03/16 12:15 Bacid - PO 1 tab DAILY KWAKU Administration Lisinopril 40 mg 12/30/15 10:00 01/03/16 12:17 Prinivil - GT 40 mg DAILY KWAKU Administration Metoprolol Tartrate 150 mg 12/29/15 22:00 01/03/16 12:15 Lopressor - GT 150 mg BID KWAKU Administration Metoprolol Tartrate 5 mg 12/29/15 10:43 Lopressor Injection - IVPB Q6H PRN HYPERTENSION Multivitamins 5 ml 12/30/15 10:00 01/03/16 12:18 Thera-Plus - GT 5 ml DAILY KWAKU Administration Pantoprazole Sodium 40 mg 12/30/15 10:00 01/03/16 12:17 Protonix Packets For Oral Suspension - GT 40 mg DAILY KWAKU Administration Assessment/plan: 75 year old male with PMHx of HTN, IDDM, inguinal hernia who presented to the ED with diverticular bleed s/p Righ hemicolectomy with 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 PT developed HCAP and completed 7 days course of vanc/zosyn on 12/01/15. no change in his outcome, weekly labs.stable . 1. 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 2. Anoxic brain injury s/p brainstem CVAs , Mental status unchanged 3. Respiratory failure secondary to anoxic brain injury - Cont trach collar , duonebs PRN ,Albuterol neb PRN 4. HTN Cont lisinopril, metoprolol, amlodipine 5. Multiple pressure ulcers, Stage III sacrum healing - Stage II left ear healing, Turn and position q2h 6. IDDM, Levemir 28 units HS - ISS BGM ACHS FEN: - Tube feeds: Vital 1.5 @60ml/hr continue - PT for passive ROM CODE STATUS: DNR
[2016-01-03] MEDS: INSULIN DETEMIR 100 UNITS/ML MDV SQ SCH (23:04)
[2016-01-04] MEDS: INSULIN SLIDING SCALE (NOVOLOG) 1 VIAL SQ SCH ×3 (06:29→18:42)
[2016-01-04] MEDS: AMINO ACIDS/PROTEIN HYDROLYS SUGAR-FREE 30 ML PACKET PO SCH ×2 (12:15→18:42)
[2016-01-04] MEDS: METOPROLOL TARTRATE 50 MG TABLET (FP) GT SCH ×2 (12:15→21:30)
[2016-01-04] MEDS: LISINOPRIL 20 MG TABLET (FP) GT SCH (12:15)
[2016-01-04] MEDS: MULTIVITAMINS THERAPEUTIC GT SCH (12:16)
[2016-01-04] MEDS: amLODIPine BESYLATE 10 MG TABLET (FP) GT SCH (12:16)
[2016-01-04] MEDS: PANTOPRAZOLE SOD 40 MG SUSPENSION PACKET GT SCH (12:16)
[2016-01-04] MEDS: LACTOBACILLUS ACIDOPHILUS 1 EACH TAB (FP) PO SCH (16:40)
[2016-01-04] MEDS: INSULIN DETEMIR 100 UNITS/ML MDV SQ SCH (21:30)
--- NOTE | 2016-01-04 21:32 | PN ---
Progress Note (short form) - Note Progress Note: This patient is new to [place] 11/18/2015,was admitted on 06/27/2015. Date of admission 06/27/2015 for GI bleed. Events noted. Patient is a 75 yo M with PMHx HTN, DM, inguinal hernia was admitted on 2014 for Bright red blood per rectum and melena with multiple syncopal episodes. Dxgnosed with persistent diverticular bleed s/p colonoscopy ,s/p R hemicolectomy due to GI bleed on 06/29/2015. Course was complicated with CVA. patient was in the ICU unresponsive with anoxic brain injury had tracheostomy on 07/23/2015 .and then transferred to floor. Patient is/p IVC filter due to having bilateral DVT. no new findings. no change his status. Vital Signs Temperature 98.7 F 01/04/16 20:42 Pulse Rate 90 01/04/16 20:42 Respiratory Rate 20 01/04/16 20:42 Blood Pressure 140/88 01/04/16 20:42 O2 Sat by Pulse Oximetry (%) 98 01/04/16 20:42 GENERAL: The patient has periods of somnolence, periods of wakefulness. Awake today, moving head back and forth in the absence of any type of stimulus. No vocalization, no grimacing. No indication of pain. HEAD: Normal with no signs of trauma. EYES: Pupils equal, round and reactive to light, sclera anicteric, conjunctiva clear. ENT: Ears normal, nares patent. Moist mucous membranes. Trach collar, thin, white/sharma secretions. NECK: Normal range of motion, supple without lymphadenopathy, JVD, or masses. LUNGS: Coarse breath sounds. No wheezes, and no crackles. HEART: Regular rate and rhythm, normal S1 and S2 without murmur, rub or gallop. ABDOMEN: Soft, nontender, normoactive bowel sounds. No guarding, no rebound. EXTREMITIES: 2+ pulses, warm, well-perfused, no edema. NEUROLOGICAL: Unable to assess. SKIN: Wounds not visualized today. CBCD WBC 9.7 K/mm3 (4.0-10.0) 12/27/15 07:20 RBC 3.61 M/mm3 (4.00-5.60) L 12/27/15 07:20 Hgb 10.3 GM/dL (11.7-16.9) L 12/27/15 07:20 Hct 30.9 % (35.4-49) L 12/27/15 07:20 MCV 85.6 fl (80-96) 12/27/15 07:20 MCHC 33.2 g/dl (32.0-35.9) 12/27/15 07:20 RDW 15.1 % (11.9-15.9) 12/27/15 07:20 Plt Count 247 K/MM3 (134-434) 12/27/15 07:20 MPV 8.2 fl (7.5-11.1) 12/27/15 07:20 CMP Sodium 142 mmol/L (136-145) 12/25/15 07:45 Potassium 3.5 mmol/L (3.5-5.1) 12/25/15 07:45 Chloride 102 mmol/L (98-107) 12/25/15 07:45 Carbon Dioxide 29 mmol/L (21-32) 12/25/15 07:45 Anion Gap 11 (8-16) 12/25/15 07:45 BUN 24 mg/dL (7-18) H 12/25/15 07:45 Creatinine 0.8 mg/dL (0.7-1.3) 12/25/15 07:45 Creat Clearance w eGFR > 60 (>60) 12/20/15 06:50 Random Glucose 147 mg/dL (74-106) H D 12/25/15 07:45 Calcium 10.1 mg/dL (8.5-10.1) 12/25/15 07:45 Total Bilirubin 0.3 mg/dL (0.2-1.0) 12/20/15 06:50 AST 14 U/L (15-37) L 12/20/15 06:50 ALT 20 U/L (12-78) 12/20/15 06:50 Alkaline Phosphatase 97 U/L (45-117) 12/20/15 06:50 Total Protein 7.6 g/dl (6.4-8.2) 12/20/15 06:50 Albumin 3.4 g/dl (3.4-5.0) 12/20/15 06:50 CARDIAC ENZYMES Creatine Kinase 62 IU/L (38-174) 06/28/15 09:35 Troponin I 0.07 ng/ml (0.03-0.5) D 07/09/15 05:00 Current Medications Generic Name Dose Route Start Last Admin Trade Name Freq PRN Reason Stop Dose Admin Acetaminophen 650 mg 12/29/15 10:43 12/30/15 09:38 Tylenol Oral Solution - GT 650 mg Q6H PRN Administration FEVER Amino Acids 30 ml 12/29/15 17:30 01/04/16 18:42 Prostat Sugar-Free Packet - PO 30 ml BID@0800,1730 KWAKU Administration Amlodipine Besylate 10 mg 12/30/15 10:00 01/04/16 12:16 Norvasc - GT 10 mg DAILY KWAKU Administration Guaifenesin 10 ml 12/29/15 10:43 01/03/16 18:09 Robitussin Dm - PO 10 ml Q6H PRN Administration COUGH Ibuprofen 200 mg 12/29/15 10:43 Motrin Oral Suspension - PO Q6H PRN FEVER Insulin Aspart 1 vial 12/29/15 12:00 01/04/16 18:42 Novolog Vial Sliding Scale - SQ 4 units Q6HPO KWAKU Administration Protocol Insulin Detemir 28 units 12/29/15 22:00 01/04/16 21:30 Levemir Vial SQ 28 units HS KWAKU Administration Lactobacillus Acidophilus 1 tab 12/30/15 10:00 01/04/16 16:40 Bacid - PO 1 tab DAILY KWAKU Administration Lisinopril 40 mg 12/30/15 10:00 01/04/16 12:15 Prinivil - GT 40 mg DAILY KWAKU Administration Metoprolol Tartrate 150 mg 12/29/15 22:00 01/04/16 21:30 Lopressor - GT 150 mg BID KWAKU Administration Metoprolol Tartrate 5 mg 12/29/15 10:43 Lopressor Injection - IVPB Q6H PRN HYPERTENSION Multivitamins 5 ml 12/30/15 10:00 01/04/16 12:16 Thera-Plus - GT 5 ml DAILY KWAKU Administration Pantoprazole Sodium 40 mg 12/30/15 10:00 01/04/16 12:16 Protonix Packets For Oral Suspension - GT 40 mg DAILY KWAKU Administration Assessment/plan: 75 year old male with PMHx of HTN, IDDM, inguinal hernia who presented to the ED with diverticular bleed s/p Righ hemicolectomy with 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 PT developed HCAP and completed 7 days course of vanc/zosyn on 12/01/15. no change in his outcome, weekly labs.stable . 1. 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 2. Anoxic brain injury s/p brainstem CVAs , Mental status unchanged 3. Respiratory failure secondary to anoxic brain injury - Cont trach collar , duonebs PRN ,Albuterol neb PRN 4. HTN Cont lisinopril, metoprolol, amlodipine 5. Multiple pressure ulcers, Stage III sacrum healing - Stage II left ear healing, Turn and position q2h 6. IDDM, Levemir 28 units HS - ISS BGM ACHS FEN: - Tube feeds: Vital 1.5 @60ml/hr continue - PT for passive ROM CODE STATUS: DNR
[2016-01-05] MEDS: INSULIN SLIDING SCALE (NOVOLOG) 1 VIAL SQ SCH ×5 (00:26→23:15)
[2016-01-05] MEDS: AMINO ACIDS/PROTEIN HYDROLYS SUGAR-FREE 30 ML PACKET PO SCH ×2 (09:00→18:01)
[2016-01-05] MEDS: LACTOBACILLUS ACIDOPHILUS 1 EACH TAB (FP) PO SCH (11:52)
[2016-01-05] MEDS: METOPROLOL TARTRATE 50 MG TABLET (FP) GT SCH ×2 (11:53→23:16)
[2016-01-05] MEDS: amLODIPine BESYLATE 10 MG TABLET (FP) GT SCH (11:53)
[2016-01-05] MEDS: LISINOPRIL 20 MG TABLET (FP) GT SCH (11:54)
[2016-01-05] MEDS: MULTIVITAMINS THERAPEUTIC GT SCH (11:55)
[2016-01-05] MEDS: PANTOPRAZOLE SOD 40 MG SUSPENSION PACKET GT SCH (11:55)
--- NOTE | 2016-01-05 20:18 | PN ---
Progress Note (short form) - Note Progress Note: Subjective: .unable to obtain hx Objective: Last Vital Signs Temp Pulse Resp BP Pulse Ox 98.6 F 76 20 147/67 98 01/05/16 18:00 01/05/16 18:00 01/05/16 18:00 01/05/16 18:00 01/05/16 09:10 Physical Exam: NAD .sleeping . CV: RRR, no MRG lungs: course breath sounds b/l anteriorly ext: no edema on legs. abd: soft, NT, ND , nl BS PEG Laboratory Results - last 24 hr 01/04/16 01/05/16 01/05/16 21:28 00:20 05:22 POC Glucometer 172 186 130 01/05/16 01/05/16 12:17 16:57 POC Glucometer 192 166 Assessment/Plan: 75 yo M with PMH HTN, DM, inguinal hernia a/w BRBPR and melena with multiple syncopal episodes. Dx with persistent diverticular bleed with R hemicolectomy, course complicated with CVA now in the ICU unresponsive and anoxic brain injury had tracheostomy on 07/23. also s/p PEG placement and iliac artery bleed s /p embolization 09/03/15. received a course of ABx for HCAp in Oct/nov 1-fever :resolved 2- b/l DVTs : s/p IVC filter 3- acute GI bleed, s/p colonoscopy and R hemicolectomy. no further bleed 4- Anoxic brain injury and CVA, s/p Trach 07/23. s/p PEG 5- HTN: cont meds . 6- DM : cont insulin 7- nutrition through PEG : at goal 60 cc/hr DNR
[2016-01-05] MEDS: INSULIN DETEMIR 100 UNITS/ML MDV SQ SCH (23:16)
[2016-01-06] MEDS: INSULIN SLIDING SCALE (NOVOLOG) 1 VIAL SQ SCH ×4 (06:21→23:18)
[2016-01-06] MEDS: PANTOPRAZOLE SOD 40 MG SUSPENSION PACKET GT SCH (10:26)
[2016-01-06] MEDS: LACTOBACILLUS ACIDOPHILUS 1 EACH TAB (FP) PO SCH (10:26)
[2016-01-06] MEDS: guaiFENesin/D-METHORPHAN HB 10 ML UNIT-DOSE CUPS PO PRN ×2 (10:26→17:14)
[2016-01-06] MEDS: ACETAMINOPHEN 650 MG/20.3 ML ORAL SOLUTION (CUPS) GT PRN (10:26)
[2016-01-06] MEDS: amLODIPine BESYLATE 10 MG TABLET (FP) GT SCH (10:26)
[2016-01-06] MEDS: METOPROLOL TARTRATE 50 MG TABLET (FP) GT SCH ×2 (10:26→23:17)
[2016-01-06] MEDS: AMINO ACIDS/PROTEIN HYDROLYS SUGAR-FREE 30 ML PACKET PO SCH ×2 (10:27→17:15)
[2016-01-06] MEDS: LISINOPRIL 20 MG TABLET (FP) GT SCH (10:27)
[2016-01-06] MEDS: MULTIVITAMINS THERAPEUTIC GT SCH (10:28)
--- NOTE | 2016-01-06 16:11 | PN ---
Progress Note (short form) - Note Progress Note: Subjective: .unable to obtain hx . had diarrhea Objective: Last Vital Signs Temp Pulse Resp BP Pulse Ox 98.9 F 87 18 153/85 97 01/06/16 14:54 01/06/16 14:54 01/06/16 14:54 01/06/16 14:54 01/06/16 10:31 Physical Exam: NAD .sleeping . CV: RRR, no MRG lungs: course breath sounds b/l anteriorly ext: no edema on legs. abd: soft, NT, ND , nl BS. PEG in place with intact skin Laboratory Results - last 24 hr 01/05/16 01/05/16 01/06/16 16:57 23:14 06:20 POC Glucometer 166 168 158 01/06/16 12:04 POC Glucometer 196 Assessment/Plan: 75 yo M with PMH HTN, DM, inguinal hernia a/w BRBPR and melena with multiple syncopal episodes. Dx with persistent diverticular bleed with R hemicolectomy, course complicated with CVA now in the ICU unresponsive and anoxic brain injury had tracheostomy on 07/23. also s/p PEG placement and iliac artery bleed s /p embolization 09/03/15. received a course of ABx for HCAp in Oct/nov 1-diarrhea : check c diff 2- b/l DVTs : s/p IVC filter 3- acute GI bleed, s/p colonoscopy and R hemicolectomy. no further bleed 4- Anoxic brain injury and CVA, s/p Trach 07/23. s/p PEG 5- HTN: cont meds . 6- DM : cont insulin 7- nutrition through PEG : at goal 60 cc/hr DNR
[2016-01-06] MEDS: INSULIN DETEMIR 100 UNITS/ML MDV SQ SCH (23:17)
[2016-01-07] MEDS: INSULIN SLIDING SCALE (NOVOLOG) 1 VIAL SQ SCH ×4 (06:22→23:25)
[2016-01-07] MEDS: PANTOPRAZOLE SOD 40 MG SUSPENSION PACKET GT SCH (09:50)
[2016-01-07] MEDS: METOPROLOL TARTRATE 50 MG TABLET (FP) GT SCH ×2 (09:50→21:58)
[2016-01-07] MEDS: MULTIVITAMINS THERAPEUTIC GT SCH (09:50)
[2016-01-07] MEDS: LISINOPRIL 20 MG TABLET (FP) GT SCH (09:51)
[2016-01-07] MEDS: AMINO ACIDS/PROTEIN HYDROLYS SUGAR-FREE 30 ML PACKET PO SCH ×2 (09:51→17:34)
[2016-01-07] MEDS: amLODIPine BESYLATE 10 MG TABLET (FP) GT SCH (09:51)
[2016-01-07] MEDS: LACTOBACILLUS ACIDOPHILUS 1 EACH TAB (FP) PO SCH (09:51)
--- NOTE | 2016-01-07 16:44 | PN ---
Progress Note (short form) - Note Progress Note: Subjective: .unable to obtain hx. Objective: Last Vital Signs Temp Pulse Resp BP Pulse Ox 98.8 F 86 22 141/89 96 01/07/16 14:02 01/07/16 14:02 01/07/16 14:02 01/07/16 14:02 01/07/16 10:40 Physical Exam: NAD .sleeping . CV: RRR, no MRG lungs: course breath sounds b/l anteriorly ext: no edema on legs. abd: soft, NT, ND , nl BS. PEG in place with intact skin Laboratory Results - last 24 hr 01/06/16 01/06/16 01/07/16 17:12 23:16 06:21 POC Glucometer 162 135 154 01/07/16 01/07/16 12:19 12:20 POC Glucometer 80 162 Assessment/Plan: 75 yo M with PMH HTN, DM, inguinal hernia a/w BRBPR and melena with multiple syncopal episodes. Dx with persistent diverticular bleed with R hemicolectomy, course complicated with CVA now in the ICU unresponsive and anoxic brain injury had tracheostomy on 07/23. also s/p PEG placement and iliac artery bleed s /p embolization 09/03/15. received a course of ABx for HCAp in Oct/nov 1-diarrhea : c diff neg . resolved . check cbc in am 2- b/l DVTs : s/p IVC filter 3- acute GI bleed, s/p colonoscopy and R hemicolectomy. no further bleed 4- Anoxic brain injury and CVA, s/p Trach 07/23. s/p PEG 5- HTN: cont meds . 6- DM : cont insulin 7- nutrition through PEG : at goal 60 cc/hr DNR
[2016-01-07] MEDS: INSULIN DETEMIR 100 UNITS/ML MDV SQ SCH (22:50)
[2016-01-08] MEDS: INSULIN SLIDING SCALE (NOVOLOG) 1 VIAL SQ SCH ×4 (05:56→23:23)
[2016-01-08] MEDS: AMINO ACIDS/PROTEIN HYDROLYS SUGAR-FREE 30 ML PACKET PO SCH ×2 (08:48→17:54)
[2016-01-08 09:51] LABS: CALCIUM 10.2 mg/dL (8.5-10.1)
[2016-01-08 09:55] LABS: CREATININE 0.8 mg/dL (0.7-1.3)
[2016-01-08] MEDS: PANTOPRAZOLE SOD 40 MG SUSPENSION PACKET GT SCH (10:44)
[2016-01-08] MEDS: LACTOBACILLUS ACIDOPHILUS 1 EACH TAB (FP) PO SCH (10:44)
[2016-01-08] MEDS: amLODIPine BESYLATE 10 MG TABLET (FP) GT SCH (10:44)
[2016-01-08] MEDS: LISINOPRIL 20 MG TABLET (FP) GT SCH (10:44)
[2016-01-08] MEDS: METOPROLOL TARTRATE 50 MG TABLET (FP) GT SCH ×2 (10:44→22:04)
[2016-01-08] MEDS: MULTIVITAMINS THERAPEUTIC GT SCH (10:44)
--- NOTE | 2016-01-08 17:26 | PN ---
Progress Note (short form) - Note Progress Note: Subjective: unable to obtain hx. Objective: Last Vital Signs Temp Pulse Resp BP Pulse Ox 99.1 F 82 22 135/78 94 L 01/08/16 15:50 01/08/16 15:50 01/08/16 15:50 01/08/16 15:50 01/08/16 10:30 Physical Exam: NAD .sleeping . CV: RRR, no MRG lungs: course breath sounds b/l anteriorly ext: no edema on legs. abd: soft, NT, ND , nl BS. PEG in place with intact skin Laboratory Results - last 24 hr 01/07/16 01/07/16 01/08/16 17:18 22:39 05:29 Sodium Potassium Chloride Carbon Dioxide Anion Gap BUN Creatinine POC Glucometer 159 231 156 Random Glucose Calcium 01/08/16 01/08/16 07:45 11:52 Sodium 140 Potassium 3.5 Chloride 102 Carbon Dioxide 31 Anion Gap 7 L BUN 24 H Creatinine 0.8 POC Glucometer 181 Random Glucose 140 H Calcium 10.2 H Assessment/Plan: 75 yo M with PMH HTN, DM, inguinal hernia a/w BRBPR and melena with multiple syncopal episodes. Dx with persistent diverticular bleed with R hemicolectomy, course complicated with CVA now in the ICU unresponsive and anoxic brain injury had tracheostomy on 07/23. also s/p PEG placement and iliac artery bleed s /p embolization 09/03/15. received a course of ABx for HCAp in Oct/nov 1-diarrhea : c diff neg . resolved . cbc 2- b/l DVTs : s/p IVC filter 3- acute GI bleed, s/p colonoscopy and R hemicolectomy. no further bleed 4- Anoxic brain injury and CVA, s/p Trach 07/23. s/p PEG 5- HTN: cont meds . 6- DM : cont insulin 7- nutrition through PEG : at goal 60 cc/hr. will increase free water rate to 50 due to increased BUN/Cr and slight hypercalcemia DNR
[2016-01-08] MEDS: INSULIN DETEMIR 100 UNITS/ML MDV SQ SCH (22:03)
[2016-01-09] MEDS: INSULIN SLIDING SCALE (NOVOLOG) 1 VIAL SQ SCH ×4 (06:55→23:15)
[2016-01-09 08:47] LABS: BASOPHIL 0.5 % (0-2.0); EOSINOPHIL 3.9 % (0-4.5); MCHC 33.6 g/dl (32.0-35.9); MEAN CELL VOLUME 86.3 fl (80-96); MEAN PLT VOLUME 8.5 fl (7.5-11.1); NEUTROPHILS 62.9 % (42.8-82.8); PLATELET COUNT 243 K/MM3 (134-434); RDW 14.9 % (11.9-15.9); WHITE BLOOD COUNT 9.6 K/mm3 (4.0-10.0)
[2016-01-09] MEDS: AMINO ACIDS/PROTEIN HYDROLYS SUGAR-FREE 30 ML PACKET PO SCH ×2 (10:27→16:56)
[2016-01-09] MEDS: LISINOPRIL 20 MG TABLET (FP) GT SCH (10:29)
[2016-01-09] MEDS: amLODIPine BESYLATE 10 MG TABLET (FP) GT SCH (10:29)
[2016-01-09] MEDS: MULTIVITAMINS THERAPEUTIC GT SCH (10:30)
[2016-01-09] MEDS: PANTOPRAZOLE SOD 40 MG SUSPENSION PACKET GT SCH (10:30)
[2016-01-09] MEDS: METOPROLOL TARTRATE 50 MG TABLET (FP) GT SCH ×2 (10:35→23:15)
[2016-01-09] MEDS: LACTOBACILLUS ACIDOPHILUS 1 EACH TAB (FP) PO SCH (15:06)
--- NOTE | 2016-01-09 15:07 | PN ---
Progress Note (short form) - Note Progress Note: Subjective: unable to obtain hx. Objective: Last Vital Signs Temp Pulse Resp BP Pulse Ox 98.7 F 104 H 20 153/86 95 01/09/16 10:00 01/09/16 11:44 01/09/16 10:00 01/09/16 10:00 01/09/16 11:44 Physical Exam: NAD .sleeping . CV: RRR, no MRG lungs: course breath sounds b/l anteriorly ext: no edema on legs. abd: soft, NT, ND , nl BS. PEG in place with intact skin . Laboratory Results - last 24 hr 01/08/16 01/08/16 01/09/16 17:52 23:12 06:21 WBC RBC Hgb Hct MCV MCHC RDW Plt Count MPV Neutrophils % Lymphocytes % Monocytes % Eosinophils % Basophils % POC Glucometer 186 145 156 01/09/16 01/09/16 07:45 11:24 WBC 9.6 RBC 3.66 L Hgb 10.6 L Hct 31.6 L MCV 86.3 MCHC 33.6 RDW 14.9 Plt Count 243 MPV 8.5 Neutrophils % 62.9 Lymphocytes % 27.1 Monocytes % 5.6 Eosinophils % 3.9 Basophils % 0.5 POC Glucometer 156 Assessment/Plan: 75 yo M with PMH HTN, DM, inguinal hernia a/w BRBPR and melena with multiple syncopal episodes. Dx with persistent diverticular bleed with R hemicolectomy, course complicated with CVA now in the ICU unresponsive and anoxic brain injury had tracheostomy on 07/23. also s/p PEG placement and iliac artery bleed s /p embolization 09/03/15. received a course of ABx for HCAp in Oct/nov 1-diarrhea : c diff neg . resolved . 2- b/l DVTs : s/p IVC filter 3- acute GI bleed, s/p colonoscopy and R hemicolectomy. no further bleed 4- Anoxic brain injury and CVA, s/p Trach 07/23. s/p PEG 5- HTN: cont meds . 6- DM : cont insulin 7- nutrition through PEG : at goal 60 cc/hr.cont increased free water rate at 50 cc /hr due to increased BUN/Cr and slight hypercalcemia repeat labs tomorrow DNR
[2016-01-09] MEDS: INSULIN DETEMIR 100 UNITS/ML MDV SQ SCH (23:15)
[2016-01-10] MEDS: INSULIN SLIDING SCALE (NOVOLOG) 1 VIAL SQ SCH ×3 (06:28→23:11)
[2016-01-10] MEDS: AMINO ACIDS/PROTEIN HYDROLYS SUGAR-FREE 30 ML PACKET PO SCH ×2 (08:45→18:53)
[2016-01-10 09:00] LABS: CALCIUM 9.7 mg/dL (8.5-10.1); CREATININE 0.7 mg/dL (0.7-1.3)
[2016-01-10] MEDS: LACTOBACILLUS ACIDOPHILUS 1 EACH TAB (FP) PO SCH (09:26)
[2016-01-10] MEDS: METOPROLOL TARTRATE 50 MG TABLET (FP) GT SCH ×2 (09:26→23:10)
[2016-01-10] MEDS: amLODIPine BESYLATE 10 MG TABLET (FP) GT SCH (09:26)
[2016-01-10] MEDS: PANTOPRAZOLE SOD 40 MG SUSPENSION PACKET GT SCH (09:26)
[2016-01-10] MEDS: LISINOPRIL 20 MG TABLET (FP) GT SCH (09:27)
[2016-01-10] MEDS: MULTIVITAMINS THERAPEUTIC GT SCH (14:50)
--- NOTE | 2016-01-10 19:03 | PN ---
Progress Note (short form) - Note Progress Note: Subjective: unable to obtain hx. Objective: Last Vital Signs Temp Pulse Resp BP Pulse Ox 98.6 F 91 H 22 147/89 97 01/10/16 15:41 01/10/16 15:41 01/10/16 15:41 01/10/16 15:41 01/10/16 10:11 Physical Exam: NAD .sleeping . CV: RRR, no MRG lungs: course breath sounds b/l anteriorly ext: no edema on legs. abd: soft, NT, ND , nl BS. PEG in place with intact skin . Laboratory Results - last 24 hr 01/09/16 01/10/16 01/10/16 23:07 06:00 06:27 Sodium 141 Potassium 3.7 Chloride 102 Carbon Dioxide 31 Anion Gap 8 BUN 23 H Creatinine 0.7 POC Glucometer 156 136 Random Glucose 151 H Calcium 9.7 01/10/16 12:17 Sodium Potassium Chloride Carbon Dioxide Anion Gap BUN Creatinine POC Glucometer 164 Random Glucose Calcium Assessment/Plan: 75 yo M with PMH HTN, DM, inguinal hernia a/w BRBPR and melena with multiple syncopal episodes. Dx with persistent diverticular bleed with R hemicolectomy, course complicated with CVA now in the ICU unresponsive and anoxic brain injury had tracheostomy on 07/23. also s/p PEG placement and iliac artery bleed s /p embolization 09/03/15. received a course of ABx for HCAp in Oct/nov 1-diarrhea : c diff neg . resolved . 2- b/l DVTs : s/p IVC filter 3- acute GI bleed, s/p colonoscopy and R hemicolectomy. no further bleed 4- Anoxic brain injury and CVA, s/p Trach 07/23. s/p PEG 5- HTN: cont meds . 6- DM: cont insulin 7- nutrition through PEG : at goal 60 cc/hr.cont increased free water rate at 50 cc /hr due to increased BUN/Cr and slight hypercalcemia hypercalcemia resolved DNR
[2016-01-10] MEDS: INSULIN DETEMIR 100 UNITS/ML MDV SQ SCH (23:11)
[2016-01-11] MEDS: INSULIN SLIDING SCALE (NOVOLOG) 1 VIAL SQ SCH ×3 (06:22→18:14)
[2016-01-11] MEDS: AMINO ACIDS/PROTEIN HYDROLYS SUGAR-FREE 30 ML PACKET PO SCH ×2 (08:09→16:52)
[2016-01-11] MEDS: METOPROLOL TARTRATE 50 MG TABLET (FP) GT SCH ×2 (11:17→22:30)
[2016-01-11] MEDS: amLODIPine BESYLATE 10 MG TABLET (FP) GT SCH (11:19)
[2016-01-11] MEDS: PANTOPRAZOLE SOD 40 MG SUSPENSION PACKET GT SCH (11:20)
[2016-01-11] MEDS: LISINOPRIL 20 MG TABLET (FP) GT SCH (11:34)
[2016-01-11] MEDS: MULTIVITAMINS THERAPEUTIC GT SCH (11:35)
[2016-01-11] MEDS: LACTOBACILLUS ACIDOPHILUS 1 EACH TAB (FP) PO SCH (13:39)
[2016-01-11] MEDS: INSULIN DETEMIR 100 UNITS/ML MDV SQ SCH (22:30)
[2016-01-12] MEDS: INSULIN SLIDING SCALE (NOVOLOG) 1 VIAL SQ SCH ×4 (00:09→18:44)
[2016-01-12] MEDS: AMINO ACIDS/PROTEIN HYDROLYS SUGAR-FREE 30 ML PACKET PO SCH ×2 (09:51→18:44)
[2016-01-12] MEDS: LACTOBACILLUS ACIDOPHILUS 1 EACH TAB (FP) PO SCH (09:52)
[2016-01-12] MEDS: METOPROLOL TARTRATE 50 MG TABLET (FP) GT SCH (09:53)
[2016-01-12] MEDS: amLODIPine BESYLATE 10 MG TABLET (FP) GT SCH (09:54)
[2016-01-12] MEDS: PANTOPRAZOLE SOD 40 MG SUSPENSION PACKET GT SCH (09:56)
[2016-01-12] MEDS: LISINOPRIL 20 MG TABLET (FP) GT SCH (09:56)
[2016-01-12] MEDS: MULTIVITAMINS THERAPEUTIC GT SCH (12:07)
--- NOTE | 2016-01-12 19:03 | PN ---
Progress Note (short form) - Note Progress Note: This patient is new to [facility] 11/18/2015,was admitted on 06/27/2015. Date of admission 06/27/2015 for GI bleed. Events noted. Patient is a 75 yo M with PMHx HTN, DM, inguinal hernia was admitted on 2014 for Bright red blood per rectum and melena with multiple syncopal episodes. Dxgnosed with persistent diverticular bleed s/p colonoscopy ,s/p R hemicolectomy due to GI bleed on 06/29/2015. Course was complicated with CVA. patient was in the ICU unresponsive with anoxic brain injury had tracheostomy on 07/23/2015 .and then transferred to floor. Patient is/p IVC filter due to having bilateral DVT. no new findings. no change in his status, lying in bed with no acute distress. Vital Signs Temperature 98.4 F 01/12/16 14:13 Pulse Rate 84 01/12/16 14:13 Respiratory Rate 22 01/12/16 14:13 Blood Pressure 142/76 01/12/16 14:13 O2 Sat by Pulse Oximetry (%) 99 01/12/16 12:22 GENERAL: The patient has periods of somnolence, periods of wakefulness. Awake today, moving head back and forth in the absence of any type of stimulus. No vocalization, no grimacing. No indication of pain. HEAD: Normal with no signs of trauma. EYES: Pupils equal, round and reactive to light, sclera anicteric, conjunctiva clear. ENT: Ears normal, nares patent. Moist mucous membranes. Trach collar, thin, white/sharma secretions. NECK: Normal range of motion, supple without lymphadenopathy, JVD, or masses. LUNGS: Coarse breath sounds. No wheezes, and no crackles. HEART: Regular rate and rhythm, normal S1 and S2 without murmur, rub or gallop. ABDOMEN: Soft, nontender, normoactive bowel sounds. No guarding, no rebound. EXTREMITIES: 2+ pulses, warm, well-perfused, no edema. NEUROLOGICAL: Unable to assess. SKIN: Wounds not visualized today. CBCD WBC 9.6 K/mm3 (4.0-10.0) 01/09/16 07:45 RBC 3.66 M/mm3 (4.00-5.60) L 01/09/16 07:45 Hgb 10.6 GM/dL (11.7-16.9) L 01/09/16 07:45 Hct 31.6 % (35.4-49) L 01/09/16 07:45 MCV 86.3 fl (80-96) 01/09/16 07:45 MCHC 33.6 g/dl (32.0-35.9) 01/09/16 07:45 RDW 14.9 % (11.9-15.9) 01/09/16 07:45 Plt Count 243 K/MM3 (134-434) 01/09/16 07:45 MPV 8.5 fl (7.5-11.1) 01/09/16 07:45 CMP Sodium 141 mmol/L (136-145) 01/10/16 06:00 Potassium 3.7 mmol/L (3.5-5.1) 01/10/16 06:00 Chloride 102 mmol/L (98-107) 01/10/16 06:00 Carbon Dioxide 31 mmol/L (21-32) 01/10/16 06:00 Anion Gap 8 (8-16) 01/10/16 06:00 BUN 23 mg/dL (7-18) H 01/10/16 06:00 Creatinine 0.7 mg/dL (0.7-1.3) 01/10/16 06:00 Creat Clearance w eGFR > 60 (>60) 12/20/15 06:50 Random Glucose 151 mg/dL (74-106) H 01/10/16 06:00 Calcium 9.7 mg/dL (8.5-10.1) 01/10/16 06:00 Total Bilirubin 0.3 mg/dL (0.2-1.0) 12/20/15 06:50 AST 14 U/L (15-37) L 12/20/15 06:50 ALT 20 U/L (12-78) 12/20/15 06:50 Alkaline Phosphatase 97 U/L (45-117) 12/20/15 06:50 Total Protein 7.6 g/dl (6.4-8.2) 12/20/15 06:50 Albumin 3.4 g/dl (3.4-5.0) 12/20/15 06:50 CARDIAC ENZYMES Creatine Kinase 62 IU/L (38-174) 06/28/15 09:35 Troponin I 0.07 ng/ml (0.03-0.5) D 07/09/15 05:00 Current Medications Generic Name Dose Route Start Last Admin Trade Name Freq PRN Reason Stop Dose Admin Acetaminophen 650 mg 12/29/15 10:43 01/06/16 10:26 Tylenol Oral Solution - GT 650 mg Q6H PRN Administration FEVER Amino Acids 30 ml 12/29/15 17:30 01/12/16 18:44 Prostat Sugar-Free Packet - PO 30 ml BID@0800,1730 KWAKU Administration Amlodipine Besylate 10 mg 12/30/15 10:00 01/12/16 09:54 Norvasc - GT 10 mg DAILY KWAKU Administration Guaifenesin 10 ml 12/29/15 10:43 01/06/16 17:14 Robitussin Dm - PO 10 ml Q6H PRN Administration COUGH Ibuprofen 200 mg 12/29/15 10:43 Motrin Oral Suspension - PO Q6H PRN FEVER Insulin Aspart 1 vial 12/29/15 12:00 01/12/16 18:44 Novolog Vial Sliding Scale - SQ 2 units Q6HPO KWAKU Administration Protocol Insulin Detemir 28 units 12/29/15 22:00 01/11/16 22:30 Levemir Vial SQ 28 units HS KWAKU Administration Lactobacillus Acidophilus 1 tab 12/30/15 10:00 01/12/16 09:52 Bacid - PO 1 tab DAILY KWAKU Administration Lisinopril 40 mg 12/30/15 10:00 01/12/16 09:56 Prinivil - GT 40 mg DAILY KWAKU Administration Metoprolol Tartrate 150 mg 12/29/15 22:00 01/12/16 09:53 Lopressor - GT 150 mg BID KWAKU Administration Metoprolol Tartrate 5 mg 12/29/15 10:43 Lopressor Injection - IVPB Q6H PRN HYPERTENSION Multivitamins 5 ml 12/30/15 10:00 01/12/16 12:07 Thera-Plus - GT 5 ml DAILY KWAKU Administration Pantoprazole Sodium 40 mg 12/30/15 10:00 01/12/16 09:56 Protonix Packets For Oral Suspension - GT 40 mg DAILY KWAKU Administration Medication Instructions Recorded Amino Acids/Protein Hydrolys 30 ml GT DAILY packet 08/09/15 [Prostat Sugar-Free Packet -] Amlodipine Besylate [Norvasc -] 10 mg GT DAILY tablet 08/09/15 Chlorhexidine Gluconate [Peridex -] 15 ml MM BID cup 08/09/15 Insulin (Levemir) [Levemir Flexpen 25 units SQ HS pen 08/09/15 -] Insulin (Novolog) [Novolog Flexpen 3 units SQ Q6HPO pen 08/09/15 -] Insulin Sliding Scale [Novolog 0 units SQ Q6HPO pen 08/09/15 Vial Sliding Scale -] Lisinopril [Prinivil -] 20 mg GT DAILY tablet 08/09/15 Metoprolol Tartrate Injection 5 mg IVPB Q6H PRN #0 vial 08/09/15 [Lopressor Injection -] Metoprolol Tartrate [Lopressor -] 100 mg GT BID tablet 08/09/15 Ondansetron Injection [Zofran 4 mg IVPB Q6H PRN #0 vial 08/09/15 Injection] Pantoprazole Suspension [Protonix 40 mg GT DAILY packet 08/09/15 Packets For Oral Suspension -] Vancomycin Oral Solution 125 mg GT Q6HPO ml 08/09/15 Assessment/plan: 75 year old male with PMHx of HTN, IDDM, inguinal hernia who presented to the ED with diverticular bleed s/p Righ hemicolectomy with 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 PT developed HCAP and completed 7 days course of vanc/zosyn on 12/01/15. no change in his outcome, weekly labs.stable . 1. 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 2. Anoxic brain injury s/p brainstem CVAs , Mental status unchanged 3. Respiratory failure secondary to anoxic brain injury - Cont trach collar , duonebs PRN ,Albuterol neb PRN 4. HTN Cont lisinopril, metoprolol, amlodipine 5. Multiple pressure ulcers, Stage III sacrum healing - Stage II left ear healing, Turn and position q2h 6. IDDM, Levemir 28 units HS - ISS BGM ACHS FEN: - Tube feeds: Vital 1.5 @60ml/hr continue - PT for passive ROM CODE STATUS: DNR
[2016-01-13] MEDS: INSULIN SLIDING SCALE (NOVOLOG) 1 VIAL SQ SCH ×4 (00:07→17:22)
[2016-01-13] MEDS: INSULIN DETEMIR 100 UNITS/ML MDV SQ SCH ×2 (00:10→22:30)
[2016-01-13] MEDS: METOPROLOL TARTRATE 50 MG TABLET (FP) GT SCH ×3 (00:13→22:30)
[2016-01-13] MEDS: AMINO ACIDS/PROTEIN HYDROLYS SUGAR-FREE 30 ML PACKET PO SCH ×2 (08:39→17:22)
[2016-01-13] MEDS: LISINOPRIL 20 MG TABLET (FP) GT SCH (10:02)
[2016-01-13] MEDS: amLODIPine BESYLATE 10 MG TABLET (FP) GT SCH (10:03)
[2016-01-13] MEDS: PANTOPRAZOLE SOD 40 MG SUSPENSION PACKET GT SCH (10:04)
[2016-01-13] MEDS: MULTIVITAMINS THERAPEUTIC GT SCH (10:04)
[2016-01-13] MEDS: LACTOBACILLUS ACIDOPHILUS 1 EACH TAB (FP) PO SCH (14:09)
--- NOTE | 2016-01-13 18:01 | PN ---
Progress Note (short form) - Note Progress Note: This patient is new to me on 11/18/2015,was admitted on 06/27/2015. Date of admission 06/27/2015 for GI bleed. Events noted. Patient is a 75 yo M with PMHx HTN, DM, inguinal hernia was admitted on 2014 for Bright red blood per rectum and melena with multiple syncopal episodes. Dxgnosed with persistent diverticular bleed s/p colonoscopy ,s/p R hemicolectomy due to GI bleed on 06/29/2015. Course was complicated with CVA. patient was in the ICU unresponsive with anoxic brain injury had tracheostomy on 07/23/2015 .and then transferred to floor. Patient is/p IVC filter due to having bilateral DVT. no new findings. no change in his mental status. Temperature 98.4 F 01/13/16 14:14 Pulse Rate 84 01/13/16 14:14 Respiratory Rate 18 01/13/16 14:14 Blood Pressure 146/82 01/13/16 14:14 O2 Sat by Pulse Oximetry (%) 98 01/13/16 12:41 GENERAL: The patient has periods of somnolence, periods of wakefulness. Awake today, moving head back and forth in the absence of any type of stimulus. No vocalization, no grimacing. No indication of pain. HEAD: Normal with no signs of trauma. EYES: Pupils equal, round and reactive to light, sclera anicteric, conjunctiva clear. ENT: Ears normal, nares patent. Moist mucous membranes. Trach collar, thin, white/sharma secretions. NECK: Normal range of motion, supple without lymphadenopathy, JVD, or masses. LUNGS: Coarse breath sounds. No wheezes, and no crackles. HEART: Regular rate and rhythm, normal S1 and S2 without murmur, rub or gallop. ABDOMEN: Soft, nontender, normoactive bowel sounds. No guarding, no rebound. EXTREMITIES: 2+ pulses, warm, well-perfused, no edema. NEUROLOGICAL: Unable to assess. SKIN: Wounds not visualized today. CBCD WBC 9.6 K/mm3 (4.0-10.0) 01/09/16 07:45 RBC 3.66 M/mm3 (4.00-5.60) L 01/09/16 07:45 Hgb 10.6 GM/dL (11.7-16.9) L 01/09/16 07:45 Hct 31.6 % (35.4-49) L 01/09/16 07:45 MCV 86.3 fl (80-96) 01/09/16 07:45 MCHC 33.6 g/dl (32.0-35.9) 01/09/16 07:45 RDW 14.9 % (11.9-15.9) 01/09/16 07:45 Plt Count 243 K/MM3 (134-434) 01/09/16 07:45 MPV 8.5 fl (7.5-11.1) 01/09/16 07:45 CMP Sodium 141 mmol/L (136-145) 01/10/16 06:00 Potassium 3.7 mmol/L (3.5-5.1) 01/10/16 06:00 Chloride 102 mmol/L (98-107) 01/10/16 06:00 Carbon Dioxide 31 mmol/L (21-32) 01/10/16 06:00 Anion Gap 8 (8-16) 01/10/16 06:00 BUN 23 mg/dL (7-18) H 01/10/16 06:00 Creatinine 0.7 mg/dL (0.7-1.3) 01/10/16 06:00 Creat Clearance w eGFR > 60 (>60) 12/20/15 06:50 Random Glucose 151 mg/dL (74-106) H 01/10/16 06:00 Calcium 9.7 mg/dL (8.5-10.1) 01/10/16 06:00 Total Bilirubin 0.3 mg/dL (0.2-1.0) 12/20/15 06:50 AST 14 U/L (15-37) L 12/20/15 06:50 ALT 20 U/L (12-78) 12/20/15 06:50 Alkaline Phosphatase 97 U/L (45-117) 12/20/15 06:50 Total Protein 7.6 g/dl (6.4-8.2) 12/20/15 06:50 Albumin 3.4 g/dl (3.4-5.0) 12/20/15 06:50 CARDIAC ENZYMES Creatine Kinase 62 IU/L (38-174) 06/28/15 09:35 Troponin I 0.07 ng/ml (0.03-0.5) D 07/09/15 05:00 Current Medications Generic Name Dose Route Start Last Admin Trade Name Freq PRN Reason Stop Dose Admin Acetaminophen 650 mg 12/29/15 10:43 01/06/16 10:26 Tylenol Oral Solution - GT 650 mg Q6H PRN Administration FEVER Amino Acids 30 ml 12/29/15 17:30 01/13/16 17:22 Prostat Sugar-Free Packet - PO 30 ml BID@0800,1730 KWAKU Administration Amlodipine Besylate 10 mg 12/30/15 10:00 01/13/16 10:03 Norvasc - GT 10 mg DAILY KWAKU Administration Guaifenesin 10 ml 12/29/15 10:43 01/06/16 17:14 Robitussin Dm - PO 10 ml Q6H PRN Administration COUGH Ibuprofen 200 mg 12/29/15 10:43 Motrin Oral Suspension - PO Q6H PRN FEVER Insulin Aspart 1 vial 12/29/15 12:00 01/13/16 17:22 Novolog Vial Sliding Scale - SQ 2 units Q6HPO KWAKU Administration Protocol Insulin Detemir 28 units 12/29/15 22:00 01/13/16 00:10 Levemir Vial SQ Not Given HS KWAKU Lactobacillus Acidophilus 1 tab 12/30/15 10:00 01/13/16 14:09 Bacid - PO 1 tab DAILY KWAKU Administration Lisinopril 40 mg 12/30/15 10:00 01/13/16 10:02 Prinivil - GT 40 mg DAILY KWAKU Administration Metoprolol Tartrate 150 mg 12/29/15 22:00 01/13/16 10:03 Lopressor - GT 150 mg BID KWAKU Administration Metoprolol Tartrate 5 mg 12/29/15 10:43 Lopressor Injection - IVPB Q6H PRN HYPERTENSION Multivitamins 5 ml 12/30/15 10:00 01/13/16 10:04 Thera-Plus - GT 5 ml DAILY KWAKU Administration Pantoprazole Sodium 40 mg 12/30/15 10:00 01/13/16 10:04 Protonix Packets For Oral Suspension - GT 40 mg DAILY KWAKU Administration Assessment/plan: 75 year old male with PMHx of HTN, IDDM, inguinal hernia who presented to the ED with diverticular bleed s/p Righ hemicolectomy with 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 PT developed HCAP and completed 7 days course of vanc/zosyn on 12/01/15. no change in his outcome, weekly labs.stable . 1. 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 2. Anoxic brain injury s/p brainstem CVAs , Mental status unchanged 3. Respiratory failure secondary to anoxic brain injury - Cont trach collar , duonebs PRN ,Albuterol neb PRN 4. HTN Cont lisinopril, metoprolol, amlodipine 5. Multiple pressure ulcers, Stage III sacrum healing - Stage II left ear healing, Turn and position q2h 6. IDDM, Levemir 28 units HS - ISS BGM ACHS FEN: - Tube feeds: Vital 1.5 @60ml/hr continue - PT for passive ROM CODE STATUS: DNR - PT for passive ROM CODE STATUS: DNR
[2016-01-14] MEDS: INSULIN SLIDING SCALE (NOVOLOG) 1 VIAL SQ SCH ×4 (01:20→17:09)
[2016-01-14] MEDS: AMINO ACIDS/PROTEIN HYDROLYS SUGAR-FREE 30 ML PACKET PO SCH ×2 (09:00→17:09)
[2016-01-14] MEDS: LACTOBACILLUS ACIDOPHILUS 1 EACH TAB (FP) PO SCH (10:20)
[2016-01-14] MEDS: LISINOPRIL 20 MG TABLET (FP) GT SCH (10:20)
[2016-01-14] MEDS: PANTOPRAZOLE SOD 40 MG SUSPENSION PACKET GT SCH (10:21)
[2016-01-14] MEDS: amLODIPine BESYLATE 10 MG TABLET (FP) GT SCH (10:22)
[2016-01-14] MEDS: METOPROLOL TARTRATE 50 MG TABLET (FP) GT SCH ×2 (10:22→21:47)
[2016-01-14] MEDS: MULTIVITAMINS THERAPEUTIC GT SCH (12:12)
--- NOTE | 2016-01-14 14:53 | PN ---
Progress Note (short form) - Note Progress Note: Vital Signs This patient is new to ct 11/18/2015,was admitted on 06/27/2015. Date of admission 06/27/2015 for GI bleed. Events noted. Patient is a 75 yo M with PMHx HTN, DM, inguinal hernia was admitted on 2014 for Bright red blood per rectum and melena with multiple syncopal episodes. Dxgnosed with persistent diverticular bleed s/p colonoscopy ,s/p R hemicolectomy due to GI bleed on 06/29/2015. Course was complicated with CVA. patient was in the ICU unresponsive with anoxic brain injury had tracheostomy on 07/23/2015 .and then transferred to floor. Patient is/p IVC filter due to having bilateral DVT. continues with no change in his mental status. Temperature 98.9 F 01/14/16 14:35 Pulse Rate 81 01/14/16 14:35 Respiratory Rate 20 01/14/16 14:35 Blood Pressure 142/89 01/14/16 14:35 O2 Sat by Pulse Oximetry (%) 97 01/14/16 11:37 GENERAL: The patient has periods of somnolence, periods of wakefulness. Awake today, moving head back and forth in the absence of any type of stimulus. No vocalization, no grimacing. No indication of pain. HEAD: Normal with no signs of trauma. EYES: Pupils equal, round and reactive to light, sclera anicteric, conjunctiva clear. ENT: Ears normal, nares patent. Moist mucous membranes. Trach collar, thin, white/sharma secretions. NECK: Normal range of motion, supple without lymphadenopathy, JVD, or masses. LUNGS: Coarse breath sounds. No wheezes, and no crackles. HEART: Regular rate and rhythm, normal S1 and S2 without murmur, rub or gallop. ABDOMEN: Soft, nontender, normoactive bowel sounds. No guarding, no rebound. EXTREMITIES: 2+ pulses, warm, well-perfused, no edema. NEUROLOGICAL: Unable to assess. SKIN: Wounds not visualized today. CBCD WBC 9.6 K/mm3 (4.0-10.0) 01/09/16 07:45 RBC 3.66 M/mm3 (4.00-5.60) L 01/09/16 07:45 Hgb 10.6 GM/dL (11.7-16.9) L 01/09/16 07:45 Hct 31.6 % (35.4-49) L 01/09/16 07:45 MCV 86.3 fl (80-96) 01/09/16 07:45 MCHC 33.6 g/dl (32.0-35.9) 01/09/16 07:45 RDW 14.9 % (11.9-15.9) 01/09/16 07:45 Plt Count 243 K/MM3 (134-434) 01/09/16 07:45 MPV 8.5 fl (7.5-11.1) 01/09/16 07:45 CMP Sodium 141 mmol/L (136-145) 01/10/16 06:00 Potassium 3.7 mmol/L (3.5-5.1) 01/10/16 06:00 Chloride 102 mmol/L (98-107) 01/10/16 06:00 Carbon Dioxide 31 mmol/L (21-32) 01/10/16 06:00 Anion Gap 8 (8-16) 01/10/16 06:00 BUN 23 mg/dL (7-18) H 01/10/16 06:00 Creatinine 0.7 mg/dL (0.7-1.3) 01/10/16 06:00 Creat Clearance w eGFR > 60 (>60) 12/20/15 06:50 Random Glucose 151 mg/dL (74-106) H 01/10/16 06:00 Calcium 9.7 mg/dL (8.5-10.1) 01/10/16 06:00 Total Bilirubin 0.3 mg/dL (0.2-1.0) 12/20/15 06:50 AST 14 U/L (15-37) L 12/20/15 06:50 ALT 20 U/L (12-78) 12/20/15 06:50 Alkaline Phosphatase 97 U/L (45-117) 12/20/15 06:50 Total Protein 7.6 g/dl (6.4-8.2) 12/20/15 06:50 Albumin 3.4 g/dl (3.4-5.0) 12/20/15 06:50 CARDIAC ENZYMES Creatine Kinase 62 IU/L (38-174) 08/31/15 09:35 Troponin I 0.07 ng/ml (0.03-0.5) D 07/09/15 05:00 Current Medications Generic Name Dose Route Start Last Admin Trade Name Frefox PRN Reason Stop Dose Admin Acetaminophen 650 mg 12/29/15 10:43 01/06/16 10:26 Tylenol Oral Solution - GT 650 mg Q6H PRN Administration FEVER Amino Acids 30 ml 12/29/15 17:30 01/14/16 09:00 Prostat Sugar-Free Packet - PO 30 ml BID@0800,1730 KWAKU Administration Amlodipine Besylate 10 mg 12/30/15 10:00 01/14/16 10:22 Norvasc - GT 10 mg DAILY KWAKU Administration Guaifenesin 10 ml 12/29/15 10:43 01/06/16 17:14 Robitussin Dm - PO 10 ml Q6H PRN Administration COUGH Ibuprofen 200 mg 12/29/15 10:43 Motrin Oral Suspension - PO Q6H PRN FEVER Insulin Aspart 1 vial 12/29/15 12:00 01/14/16 12:11 Novolog Vial Sliding Scale - SQ 2 units Q6HPO KWAKU Administration Protocol Insulin Detemir 28 units 12/29/15 22:00 01/13/16 22:30 Levemir Vial SQ 28 units HS KWAKU Administration Lactobacillus Acidophilus 1 tab 12/30/15 10:00 01/14/16 10:20 Bacid - PO 1 tab DAILY KWAKU Administration Lisinopril 40 mg 12/30/15 10:00 01/14/16 10:20 Prinivil - GT 40 mg DAILY KWAKU Administration Metoprolol Tartrate 150 mg 12/29/15 22:00 01/14/16 10:22 Lopressor - GT 150 mg BID KWAKU Administration Metoprolol Tartrate 5 mg 12/29/15 10:43 Lopressor Injection - IVPB Q6H PRN HYPERTENSION Multivitamins 5 ml 12/30/15 10:00 01/14/16 12:12 Thera-Plus - GT 5 ml DAILY KWAKU Administration Pantoprazole Sodium 40 mg 12/30/15 10:00 01/14/16 10:21 Protonix Packets For Oral Suspension - GT 40 mg DAILY KWAKU Administration Assessment/plan: 75 year old male with PMHx of HTN, IDDM, inguinal hernia who presented to the ED with diverticular bleed s/p Righ hemicolectomy with 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 PT developed HCAP and completed 7 days course of vanc/zosyn on 12/01/15. no change in his outcome, weekly labs.stable . 1. 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 2. Anoxic brain injury s/p brainstem CVAs , Mental status unchanged 3. Respiratory failure secondary to anoxic brain injury - Cont trach collar , duonebs PRN ,Albuterol neb PRN 4. HTN Cont lisinopril, metoprolol, amlodipine 5. Multiple pressure ulcers, Stage III sacrum healing - Stage II left ear healing, Turn and position q2h 6. IDDM, Levemir 28 units HS - ISS BGM ACHS FEN: - Tube feeds: Vital 1.5 @60ml/hr continue - PT for passive ROM CODE STATUS: DNR CODE STATUS: DNR
[2016-01-14] MEDS: INSULIN DETEMIR 100 UNITS/ML MDV SQ SCH (23:00)
[2016-01-15] MEDS: INSULIN SLIDING SCALE (NOVOLOG) 1 VIAL SQ SCH ×5 (00:10→23:21)
[2016-01-15] MEDS: IBUPROFEN 100 MG/5 ML UNIT DOSE CUPS PO PRN (05:55)
[2016-01-15] MEDS: LACTOBACILLUS ACIDOPHILUS 1 EACH TAB (FP) PO SCH (09:15)
[2016-01-15] MEDS: LISINOPRIL 20 MG TABLET (FP) GT SCH (09:15)
[2016-01-15] MEDS: PANTOPRAZOLE SOD 40 MG SUSPENSION PACKET GT SCH (09:15)
[2016-01-15] MEDS: AMINO ACIDS/PROTEIN HYDROLYS SUGAR-FREE 30 ML PACKET PO SCH ×2 (09:15→17:49)
[2016-01-15] MEDS: METOPROLOL TARTRATE 50 MG TABLET (FP) GT SCH ×2 (09:15→23:17)
[2016-01-15] MEDS: amLODIPine BESYLATE 10 MG TABLET (FP) GT SCH (09:15)
[2016-01-15] MEDS: MULTIVITAMINS THERAPEUTIC GT SCH (09:16)
--- NOTE | 2016-01-15 20:19 | PN ---
Progress Note (short form) - Note Progress Note: This patient is new to [facility] 11/18/2015,was admitted on 06/27/2015. Date of admission 06/27/2015 for GI bleed. Events noted. Patient is a 75 yo M with PMHx HTN, DM, inguinal hernia was admitted on 2014 for Bright red blood per rectum and melena with multiple syncopal episodes. Dxgnosed with persistent diverticular bleed s/p colonoscopy ,s/p R hemicolectomy due to GI bleed on 06/29/2015. Course was complicated with CVA. patient was in the ICU unresponsive with anoxic brain injury had tracheostomy on 07/23/2015 .and then transferred to floor. Patient is/p IVC filter due to having bilateral DVT. no new findings. no change his status. Vital Signs Temperature 98.1 F 01/15/16 19:00 Pulse Rate 92 H 01/15/16 19:00 Respiratory Rate 18 01/15/16 19:00 Blood Pressure 147/97 01/15/16 19:00 O2 Sat by Pulse Oximetry (%) 97 01/15/16 09:00 GENERAL: The patient has periods of somnolence, periods of wakefulness. Awake today, moving head back and forth in the absence of any type of stimulus. No vocalization, no grimacing. No indication of pain. HEAD: Normal with no signs of trauma. EYES: Pupils equal, round and reactive to light, sclera anicteric, conjunctiva clear. ENT: Ears normal, nares patent. Moist mucous membranes. Trach collar, thin, white/sharma secretions. NECK: Normal range of motion, supple without lymphadenopathy, JVD, or masses. LUNGS: Coarse breath sounds. No wheezes, and no crackles. HEART: Regular rate and rhythm, normal S1 and S2 without murmur, rub or gallop. ABDOMEN: Soft, nontender, normoactive bowel sounds. No guarding, no rebound. EXTREMITIES: 2+ pulses, warm, well-perfused, no edema. NEUROLOGICAL: Unable to assess. SKIN: Wounds not visualized today. CBCD WBC 9.6 K/mm3 (4.0-10.0) 01/09/16 07:45 RBC 3.66 M/mm3 (4.00-5.60) L 01/09/16 07:45 Hgb 10.6 GM/dL (11.7-16.9) L 01/09/16 07:45 Hct 31.6 % (35.4-49) L 01/09/16 07:45 MCV 86.3 fl (80-96) 01/09/16 07:45 MCHC 33.6 g/dl (32.0-35.9) 01/09/16 07:45 RDW 14.9 % (11.9-15.9) 01/09/16 07:45 Plt Count 243 K/MM3 (134-434) 01/09/16 07:45 MPV 8.5 fl (7.5-11.1) 01/09/16 07:45 CMP Sodium 141 mmol/L (136-145) 01/10/16 06:00 Potassium 3.7 mmol/L (3.5-5.1) 01/10/16 06:00 Chloride 102 mmol/L (98-107) 01/10/16 06:00 Carbon Dioxide 31 mmol/L (21-32) 01/10/16 06:00 Anion Gap 8 (8-16) 01/10/16 06:00 BUN 23 mg/dL (7-18) H 01/10/16 06:00 Creatinine 0.7 mg/dL (0.7-1.3) 01/10/16 06:00 Creat Clearance w eGFR > 60 (>60) 12/20/15 06:50 Random Glucose 151 mg/dL (74-106) H 01/10/16 06:00 Calcium 9.7 mg/dL (8.5-10.1) 01/10/16 06:00 Total Bilirubin 0.3 mg/dL (0.2-1.0) 12/20/15 06:50 AST 14 U/L (15-37) L 12/20/15 06:50 ALT 20 U/L (12-78) 12/20/15 06:50 Alkaline Phosphatase 97 U/L (45-117) 12/20/15 06:50 Total Protein 7.6 g/dl (6.4-8.2) 12/20/15 06:50 Albumin 3.4 g/dl (3.4-5.0) 12/20/15 06:50 CARDIAC ENZYMES Creatine Kinase 62 IU/L (38-174) 06/28/15 09:35 Troponin I 0.07 ng/ml (0.03-0.5) D 07/09/15 05:00 Current Medications Generic Name Dose Route Start Last Admin Trade Name Ginette PRN Reason Stop Dose Admin Acetaminophen 650 mg 12/29/15 10:43 01/06/16 10:26 Tylenol Oral Solution - GT 650 mg Q6H PRN Administration FEVER Amino Acids 30 ml 12/29/15 17:30 01/15/16 17:49 Prostat Sugar-Free Packet - PO 30 ml BID@0800,1730 KWAKU Administration Amlodipine Besylate 10 mg 12/30/15 10:00 01/15/16 09:15 Norvasc - GT 10 mg DAILY KWAKU Administration Guaifenesin 10 ml 12/29/15 10:43 01/06/16 17:14 Robitussin Dm - PO 10 ml Q6H PRN Administration COUGH Ibuprofen 200 mg 12/29/15 10:43 01/15/16 05:55 Motrin Oral Suspension - PO 200 mg Q6H PRN Administration FEVER Insulin Aspart 1 vial 12/29/15 12:00 01/15/16 17:49 Novolog Vial Sliding Scale - SQ 2 units Q6HPO KWAKU Administration Protocol Insulin Detemir 28 units 12/29/15 22:00 01/14/16 23:00 Levemir Vial SQ 28 units HS KWAKU Administration Lactobacillus Acidophilus 1 tab 12/30/15 10:00 01/15/16 09:15 Bacid - PO 1 tab DAILY KWAKU Administration Lisinopril 40 mg 12/30/15 10:00 01/15/16 09:15 Prinivil - GT 40 mg DAILY KWAKU Administration Metoprolol Tartrate 150 mg 12/29/15 22:00 01/15/16 09:15 Lopressor - GT 150 mg BID KWAKU Administration Metoprolol Tartrate 5 mg 12/29/15 10:43 Lopressor Injection - IVPB Q6H PRN HYPERTENSION Multivitamins 5 ml 12/30/15 10:00 01/15/16 09:16 Thera-Plus - GT 5 ml DAILY KWAKU Administration Pantoprazole Sodium 40 mg 12/30/15 10:00 01/15/16 09:15 Protonix Packets For Oral Suspension - GT 40 mg DAILY KWAKU Administration Assessment/plan: 75 year old male with PMHx of HTN, IDDM, inguinal hernia who presented to the ED with diverticular bleed s/p Righ hemicolectomy with 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 PT developed HCAP and completed 7 days course of vanc/zosyn on 12/01/15. no change in his outcome, weekly labs.stable . 1. 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 2. Anoxic brain injury s/p brainstem CVAs , Mental status unchanged 3. Respiratory failure secondary to anoxic brain injury - Cont trach collar , duonebs PRN ,Albuterol neb PRN 4. HTN Cont lisinopril, metoprolol, amlodipine 5. Multiple pressure ulcers, Stage III sacrum healing - Stage II left ear healing, Turn and position q2h 6. IDDM, Levemir 28 units HS - ISS BGM ACHS FEN: - Tube feeds: Vital 1.5 @60ml/hr continue - PT for passive ROM CODE STATUS: DNR
[2016-01-15] MEDS: INSULIN DETEMIR 100 UNITS/ML MDV SQ SCH (23:16)
[2016-01-16] MEDS: AMINO ACIDS/PROTEIN HYDROLYS SUGAR-FREE 30 ML PACKET PO SCH ×2 (07:49→16:43)
[2016-01-16] MEDS: INSULIN SLIDING SCALE (NOVOLOG) 1 VIAL SQ SCH ×4 (08:00→23:30)
[2016-01-16] MEDS: METOPROLOL TARTRATE 50 MG TABLET (FP) GT SCH ×2 (09:19→22:19)
[2016-01-16] MEDS: LISINOPRIL 20 MG TABLET (FP) GT SCH (09:20)
[2016-01-16] MEDS: PANTOPRAZOLE SOD 40 MG SUSPENSION PACKET GT SCH (09:20)
[2016-01-16] MEDS: amLODIPine BESYLATE 10 MG TABLET (FP) GT SCH (09:21)
[2016-01-16] MEDS: MULTIVITAMINS THERAPEUTIC GT SCH (09:21)
[2016-01-16] MEDS: LACTOBACILLUS ACIDOPHILUS 1 EACH TAB (FP) PO SCH (11:35)
[2016-01-16] MEDS: INSULIN DETEMIR 100 UNITS/ML MDV SQ SCH (22:19)
--- NOTE | 2016-01-16 22:23 | PN ---
Progress Note (short form) - Note Progress Note: This patient is new to [facility] 11/18/2015,was admitted on 06/27/2015. Date of admission 06/27/2015 for GI bleed. Events noted. Patient is a 75 yo M with PMHx HTN, DM, inguinal hernia was admitted on 2014 for Bright red blood per rectum and melena with multiple syncopal episodes. Dxgnosed with persistent diverticular bleed s/p colonoscopy ,s/p R hemicolectomy due to GI bleed on 06/29/2015. Course was complicated with CVA. patient was in the ICU unresponsive with anoxic brain injury had tracheostomy on 07/23/2015 .and then transferred to floor. Patient is/p IVC filter due to having bilateral DVT. Comfortable with no acute distress,no change in his mental status. Vital Signs Temperature 98.4 F 01/16/16 18:45 Pulse Rate 90 01/16/16 18:45 Respiratory Rate 20 01/16/16 18:45 Blood Pressure 140/86 01/16/16 18:45 O2 Sat by Pulse Oximetry (%) 99 01/16/16 12:24 GENERAL: The patient has periods of somnolence, periods of wakefulness. Awake today, moving head back and forth in the absence of any type of stimulus. No vocalization, no grimacing. No indication of pain. HEAD: Normal with no signs of trauma. EYES: Pupils equal, round and reactive to light, sclera anicteric, conjunctiva clear. ENT: Ears normal, nares patent. Moist mucous membranes. Trach collar, thin, white/sharma secretions. NECK: Normal range of motion, supple without lymphadenopathy, JVD, or masses. LUNGS: Coarse breath sounds. No wheezes, and no crackles. HEART: Regular rate and rhythm, normal S1 and S2 without murmur, rub or gallop. ABDOMEN: Soft, nontender, normoactive bowel sounds. No guarding, no rebound. EXTREMITIES: 2+ pulses, warm, well-perfused, no edema. NEUROLOGICAL: Unable to assess. SKIN: Wounds not visualized today. CBCD WBC 9.6 K/mm3 (4.0-10.0) 01/09/16 07:45 RBC 3.66 M/mm3 (4.00-5.60) L 01/09/16 07:45 Hgb 10.6 GM/dL (11.7-16.9) L 01/09/16 07:45 Hct 31.6 % (35.4-49) L 01/09/16 07:45 MCV 86.3 fl (80-96) 01/09/16 07:45 MCHC 33.6 g/dl (32.0-35.9) 01/09/16 07:45 RDW 14.9 % (11.9-15.9) 01/09/16 07:45 Plt Count 243 K/MM3 (134-434) 01/09/16 07:45 MPV 8.5 fl (7.5-11.1) 01/09/16 07:45 CMP Sodium 141 mmol/L (136-145) 01/10/16 06:00 Potassium 3.7 mmol/L (3.5-5.1) 01/10/16 06:00 Chloride 102 mmol/L (98-107) 01/10/16 06:00 Carbon Dioxide 31 mmol/L (21-32) 01/10/16 06:00 Anion Gap 8 (8-16) 01/10/16 06:00 BUN 23 mg/dL (7-18) H 01/10/16 06:00 Creatinine 0.7 mg/dL (0.7-1.3) 01/10/16 06:00 Creat Clearance w eGFR > 60 (>60) 12/20/15 06:50 Random Glucose 151 mg/dL (74-106) H 01/10/16 06:00 Calcium 9.7 mg/dL (8.5-10.1) 01/10/16 06:00 Total Bilirubin 0.3 mg/dL (0.2-1.0) 12/20/15 06:50 AST 14 U/L (15-37) L 12/20/15 06:50 ALT 20 U/L (12-78) 12/20/15 06:50 Alkaline Phosphatase 97 U/L (45-117) 12/20/15 06:50 Total Protein 7.6 g/dl (6.4-8.2) 12/20/15 06:50 Albumin 3.4 g/dl (3.4-5.0) 12/20/15 06:50 CARDIAC ENZYMES Creatine Kinase 62 IU/L (38-174) 06/28/15 09:35 Troponin I 0.07 ng/ml (0.03-0.5) D 07/09/15 05:00 Current Medications Generic Name Dose Route Start Last Admin Trade Name Freq PRN Reason Stop Dose Admin Acetaminophen 650 mg 12/29/15 10:43 01/06/16 10:26 Tylenol Oral Solution - GT 650 mg Q6H PRN Administration FEVER Amino Acids 30 ml 12/29/15 17:30 01/16/16 16:43 Prostat Sugar-Free Packet - PO 30 ml BID@0800,1730 KWAKU Administration Amlodipine Besylate 10 mg 12/30/15 10:00 01/16/16 09:21 Norvasc - GT 10 mg DAILY KWAKU Administration Guaifenesin 10 ml 12/29/15 10:43 01/06/16 17:14 Robitussin Dm - PO 10 ml Q6H PRN Administration COUGH Ibuprofen 200 mg 12/29/15 10:43 01/15/16 05:55 Motrin Oral Suspension - PO 200 mg Q6H PRN Administration FEVER Insulin Aspart 1 vial 12/29/15 12:00 01/16/16 17:14 Novolog Vial Sliding Scale - SQ Not Given Q6HPO [facility] Protocol Insulin Detemir 28 units 12/29/15 22:00 01/16/16 22:19 Levemir Vial SQ 28 units HS KWAKU Administration Lactobacillus Acidophilus 1 tab 12/30/15 10:00 01/16/16 11:35 Bacid - PO 1 tab DAILY KWAKU Administration Lisinopril 40 mg 12/30/15 10:00 01/16/16 09:20 Prinivil - GT 40 mg DAILY KWAKU Administration Metoprolol Tartrate 150 mg 12/29/15 22:00 01/16/16 22:19 Lopressor - GT 150 mg BID KWAKU Administration Metoprolol Tartrate 5 mg 12/29/15 10:43 Lopressor Injection - IVPB Q6H PRN HYPERTENSION Multivitamins 5 ml 12/30/15 10:00 01/16/16 09:21 Thera-Plus - GT 5 ml DAILY KWAKU Administration Pantoprazole Sodium 40 mg 12/30/15 10:00 01/16/16 09:20 Protonix Packets For Oral Suspension - GT 40 mg DAILY KWAKU Administration Medication Instructions Recorded Amino Acids/Protein Hydrolys 30 ml GT DAILY packet 08/09/15 [Prostat Sugar-Free Packet -] Amlodipine Besylate [Norvasc -] 10 mg GT DAILY tablet 08/09/15 Chlorhexidine Gluconate [Peridex -] 15 ml MM BID cup 08/09/15 Insulin (Levemir) [Levemir Flexpen 25 units SQ HS pen 08/09/15 -] Insulin (Novolog) [Novolog Flexpen 3 units SQ Q6HPO pen 08/09/15 -] Insulin Sliding Scale [Novolog 0 units SQ Q6HPO pen 08/09/15 Vial Sliding Scale -] Lisinopril [Prinivil -] 20 mg GT DAILY tablet 08/09/15 Metoprolol Tartrate Injection 5 mg IVPB Q6H PRN #0 vial 08/09/15 [Lopressor Injection -] Metoprolol Tartrate [Lopressor -] 100 mg GT BID tablet 08/09/15 Ondansetron Injection [Zofran 4 mg IVPB Q6H PRN #0 vial 08/09/15 Injection] Pantoprazole Suspension [Protonix 40 mg GT DAILY packet 08/09/15 Packets For Oral Suspension -] Vancomycin Oral Solution 125 mg GT Q6HPO ml 08/09/15 Assessment/plan: 75 year old male with PMHx of HTN, IDDM, inguinal hernia who presented to the ED with diverticular bleed s/p Righ hemicolectomy with 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 PT developed HCAP and completed 7 days course of vanc/zosyn on 12/01/15. no change in his outcome, weekly labs.stable . 1. 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 2. Anoxic brain injury s/p brainstem CVAs , Mental status unchanged 3. Respiratory failure secondary to anoxic brain injury - Cont trach collar , duonebs PRN ,Albuterol neb PRN 4. HTN Cont lisinopril, metoprolol, amlodipine 5. Multiple pressure ulcers, Stage III sacrum healing - Stage II left ear healing, Turn and position q2h 6. IDDM, Levemir 28 units HS - ISS BGM ACHS FEN: - Tube feeds: Vital 1.5 @60ml/hr continue - PT for passive ROM CODE STATUS: DNR
[2016-01-17] MEDS: INSULIN SLIDING SCALE (NOVOLOG) 1 VIAL SQ SCH ×4 (05:57→23:28)
[2016-01-17] MEDS: AMINO ACIDS/PROTEIN HYDROLYS SUGAR-FREE 30 ML PACKET PO SCH ×2 (09:00→18:57)
[2016-01-17] MEDS: LACTOBACILLUS ACIDOPHILUS 1 EACH TAB (FP) PO SCH (12:01)
[2016-01-17] MEDS: LISINOPRIL 20 MG TABLET (FP) GT SCH (12:01)
[2016-01-17] MEDS: amLODIPine BESYLATE 10 MG TABLET (FP) GT SCH (12:01)
[2016-01-17] MEDS: METOPROLOL TARTRATE 50 MG TABLET (FP) GT SCH ×2 (12:01→23:27)
[2016-01-17] MEDS: PANTOPRAZOLE SOD 40 MG SUSPENSION PACKET GT SCH (12:02)
[2016-01-17] MEDS: MULTIVITAMINS THERAPEUTIC GT SCH (12:03)
--- NOTE | 2016-01-17 20:27 | PN ---
Progress Note (short form) - Note Progress Note: This patient is new [facility] 11/[facility],was admitted on 06/27/2015. Date of admission 06/27/2015 for GI bleed. Events noted. Patient is a 75 yo M with PMHx HTN, DM, inguinal hernia was admitted on 2014 for Bright red blood per rectum and melena with multiple syncopal episodes. Dxgnosed with persistent diverticular bleed s/p colonoscopy ,s/p R hemicolectomy due to GI bleed on 06/29/2015. Course was complicated with CVA. patient was in the ICU unresponsive with anoxic brain injury had tracheostomy on 07/23/2015 .and then transferred to floor. Patient is/p IVC filter due to having bilateral DVT. no new findings. no change his status. Vital Signs Temperature 98.3 F 01/17/16 18:00 Pulse Rate 87 01/17/16 18:00 Respiratory Rate 20 01/17/16 18:00 Blood Pressure 149/81 01/17/16 18:00 O2 Sat by Pulse Oximetry (%) 99 01/17/16 10:24 GENERAL: The patient has periods of somnolence, periods of wakefulness. Awake today, moving head back and forth in the absence of any type of stimulus. No vocalization, no grimacing. No indication of pain. HEAD: Normal with no signs of trauma. EYES: Pupils equal, round and reactive to light, sclera anicteric, conjunctiva clear. ENT: Ears normal, nares patent. Moist mucous membranes. Trach collar, thin, white/sharma secretions. NECK: Normal range of motion, supple without lymphadenopathy, JVD, or masses. LUNGS: Coarse breath sounds. No wheezes, and no crackles. HEART: Regular rate and rhythm, normal S1 and S2 without murmur, rub or gallop. ABDOMEN: Soft, nontender, normoactive bowel sounds. No guarding, no rebound. EXTREMITIES: 2+ pulses, warm, well-perfused, no edema. NEUROLOGICAL: Unable to assess. SKIN: Wounds not visualized today. CBCD WBC 9.6 K/mm3 (4.0-10.0) 01/09/16 07:45 RBC 3.66 M/mm3 (4.00-5.60) L 01/09/16 07:45 Hgb 10.6 GM/dL (11.7-16.9) L 01/09/16 07:45 Hct 31.6 % (35.4-49) L 01/09/16 07:45 MCV 86.3 fl (80-96) 01/09/16 07:45 MCHC 33.6 g/dl (32.0-35.9) 01/09/16 07:45 RDW 14.9 % (11.9-15.9) 01/09/16 07:45 Plt Count 243 K/MM3 (134-434) 01/09/16 07:45 MPV 8.5 fl (7.5-11.1) 01/09/16 07:45 CMP Sodium 141 mmol/L (136-145) 01/10/16 06:00 Potassium 3.7 mmol/L (3.5-5.1) 01/10/16 06:00 Chloride 102 mmol/L (98-107) 01/10/16 06:00 Carbon Dioxide 31 mmol/L (21-32) 01/10/16 06:00 Anion Gap 8 (8-16) 01/10/16 06:00 BUN 23 mg/dL (7-18) H 01/10/16 06:00 Creatinine 0.7 mg/dL (0.7-1.3) 01/10/16 06:00 Creat Clearance w eGFR > 60 (>60) 12/20/15 06:50 Random Glucose 151 mg/dL (74-106) H 01/10/16 06:00 Calcium 9.7 mg/dL (8.5-10.1) 01/10/16 06:00 Total Bilirubin 0.3 mg/dL (0.2-1.0) 12/20/15 06:50 AST 14 U/L (15-37) L 12/20/15 06:50 ALT 20 U/L (12-78) 12/20/15 06:50 Alkaline Phosphatase 97 U/L (45-117) 12/20/15 06:50 Total Protein 7.6 g/dl (6.4-8.2) 12/20/15 06:50 Albumin 3.4 g/dl (3.4-5.0) 12/20/15 06:50 CARDIAC ENZYMES Creatine Kinase 62 IU/L (38-174) 08/31/15 09:35 Troponin I 0.07 ng/ml (0.03-0.5) D 07/09/15 05:00 Current Medications Generic Name Dose Route Start Last Admin Trade Name Ginette PRN Reason Stop Dose Admin Acetaminophen 650 mg 12/29/15 10:43 01/06/16 10:26 Tylenol Oral Solution - GT 650 mg Q6H PRN Administration FEVER Amino Acids 30 ml 12/29/15 17:30 01/17/16 18:57 Prostat Sugar-Free Packet - PO Not Given BID@0800,1730 [facility] Amlodipine Besylate 10 mg 12/30/15 10:00 01/17/16 12:01 Norvasc - GT 10 mg DAILY KWAKU Administration Guaifenesin 10 ml 12/29/15 10:43 01/06/16 17:14 Robitussin Dm - PO 10 ml Q6H PRN Administration COUGH Ibuprofen 200 mg 12/29/15 10:43 01/15/16 05:55 Motrin Oral Suspension - PO 200 mg Q6H PRN Administration FEVER Insulin Aspart 1 vial 12/29/15 12:00 01/17/16 17:46 Novolog Vial Sliding Scale - SQ Not Given Q6HPO [facility] Protocol Insulin Detemir 28 units 12/29/15 22:00 01/16/16 22:19 Levemir Vial SQ 28 units HS KWAKU Administration Lactobacillus Acidophilus 1 tab 12/30/15 10:00 01/17/16 12:01 Bacid - PO 1 tab DAILY KWAKU Administration Lisinopril 40 mg 12/30/15 10:00 01/17/16 12:01 Prinivil - GT 40 mg DAILY K[facility]AKU Administration Metoprolol Tartrate 150 mg 12/29/15 22:00 01/17/16 12:01 Lopressor - GT 150 mg BID KWAKU Administration Metoprolol Tartrate 5 mg 12/29/15 10:43 Lopressor Injection - IVPB Q6H PRN HYPERTENSION Multivitamins 5 ml 12/30/15 10:00 01/17/16 12:03 Thera-Plus - GT 5 ml DAILY K[facility]AKU Administration Pantoprazole Sodium 40 mg 12/30/15 10:00 01/17/16 12:02 Protonix Packets For Oral Suspension - GT 40 mg DAILY KWAKU Administration Assessment/plan: 75 year old male with PMHx of HTN, IDDM, inguinal hernia who presented to the ED with diverticular bleed s/p Righ hemicolectomy with 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 PT developed HCAP and completed 7 days course of vanc/zosyn on 12/01/15. no change in his outcome, weekly labs.stable . 1. 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 2. Anoxic brain injury s/p brainstem CVAs , Mental status unchanged 3. Respiratory failure secondary to anoxic brain injury - Cont trach collar , duonebs PRN ,Albuterol neb PRN 4. HTN Cont lisinopril, metoprolol, amlodipine 5. Multiple pressure ulcers, Stage III sacrum healing - Stage II left ear healing, Turn and position q2h 6. IDDM, Levemir 28 units HS - ISS BGM ACHS FEN: - Tube feeds: Vital 1.5 @60ml/hr continue - PT for passive ROM CODE STATUS: DNR
[2016-01-17] MEDS: INSULIN DETEMIR 100 UNITS/ML MDV SQ SCH (23:27)
[2016-01-18] MEDS: INSULIN SLIDING SCALE (NOVOLOG) 1 VIAL SQ SCH ×4 (06:22→23:07)
[2016-01-18 09:06] LABS: BASOPHIL 0.7 % (0-2.0); EOSINOPHIL 5.7 % (0-4.5); MCH 28.8 pg (25.7-33.7); MCHC 33.5 g/dl (32.0-35.9); MEAN CELL VOLUME 86.1 fl (80-96); MEAN PLT VOLUME 8.2 fl (7.5-11.1); NEUTROPHILS 64.4 % (42.8-82.8); PLATELET COUNT 247 K/MM3 (134-434); RDW 15.4 % (11.9-15.9); WHITE BLOOD COUNT 8.3 K/mm3 (4.0-10.0)
[2016-01-18 09:36] LABS: ALBUMIN 3.3 g/dl (3.4-5.0); ANION GAP 9 (8-16); CALCIUM 9.6 mg/dL (8.5-10.1); CO2 31 mmol/L (21-32); CREATININE 0.8 mg/dL (0.7-1.3); GLUCOSE,RANDOM 169 mg/dL (74-106); SGOT/AST 14 U/L (15-37); SGPT/ALT 22 U/L (12-78)
[2016-01-18 09:38] LABS: ALK PHOS 93 U/L (45-117); BILIRUBIN,TOTAL 0.2 mg/dL (0.2-1.0); TOT PROT 7.6 g/dl (6.4-8.2)
[2016-01-18] MEDS: amLODIPine BESYLATE 10 MG TABLET (FP) GT SCH (09:53)
[2016-01-18] MEDS: LISINOPRIL 20 MG TABLET (FP) GT SCH (09:53)
[2016-01-18] MEDS: METOPROLOL TARTRATE 50 MG TABLET (FP) GT SCH ×2 (09:53→23:06)
[2016-01-18] MEDS: LACTOBACILLUS ACIDOPHILUS 1 EACH TAB (FP) PO SCH (09:53)
[2016-01-18] MEDS: PANTOPRAZOLE SOD 40 MG SUSPENSION PACKET GT SCH (09:53)
[2016-01-18] MEDS: AMINO ACIDS/PROTEIN HYDROLYS SUGAR-FREE 30 ML PACKET PO SCH ×2 (09:53→17:44)
[2016-01-18] MEDS: MULTIVITAMINS THERAPEUTIC GT SCH (09:54)
--- NOTE | 2016-01-18 13:07 | PN ---
Progress Note (short form) - Note Progress Note: This patient is new [facility] 11/18/2015,was admitted on 06/27/2015. Date of admission 06/27/2015 for GI bleed. Events noted. Patient is a 75 yo M with PMHx HTN, DM, inguinal hernia was admitted on 2014 for Bright red blood per rectum and melena with multiple syncopal episodes. Dxgnosed with persistent diverticular bleed s/p colonoscopy ,s/p R hemicolectomy due to GI bleed on 06/29/2015. Course was complicated with CVA. patient was in the ICU unresponsive with anoxic brain injury had tracheostomy on 07/23/2015 .and then transferred to floor. Patient is/p IVC filter due to having bilateral DVT. no new findings. no change his status. Vital Signs Temperature 97.3 F L 01/18/16 10:00 Pulse Rate 83 01/18/16 10:00 Respiratory Rate 20 01/18/16 10:00 Blood Pressure 142/74 01/18/16 10:00 O2 Sat by Pulse Oximetry (%) 98 01/18/16 09:07 GENERAL: The patient has periods of somnolence, periods of wakefulness. Awake today, moving head back and forth in the absence of any type of stimulus. No vocalization, no grimacing. No indication of pain. HEAD: Normal with no signs of trauma. EYES: Pupils equal, round and reactive to light, sclera anicteric, conjunctiva clear. ENT: Ears normal, nares patent. Moist mucous membranes. Trach collar, thin, white/sharma secretions. NECK: Normal range of motion, supple without lymphadenopathy, JVD, or masses. LUNGS: Coarse breath sounds. No wheezes, and no crackles. HEART: Regular rate and rhythm, normal S1 and S2 without murmur, rub or gallop. ABDOMEN: Soft, nontender, normoactive bowel sounds. No guarding, no rebound. EXTREMITIES: 2+ pulses, warm, well-perfused, no edema. NEUROLOGICAL: Unable to assess. SKIN: Wounds not visualized today. CBCD WBC 8.3 K/mm3 (4.0-10.0) 01/18/16 08:00 RBC 3.66 M/mm3 (4.00-5.60) L 01/18/16 08:00 Hgb 10.6 GM/dL (11.7-16.9) L 01/18/16 08:00 Hct 31.6 % (35.4-49) L 01/18/16 08:00 MCV 86.1 fl (80-96) 01/18/16 08:00 MCHC 33.5 g/dl (32.0-35.9) 01/18/16 08:00 RDW 15.4 % (11.9-15.9) 01/18/16 08:00 Plt Count 247 K/MM3 (134-434) 01/18/16 08:00 MPV 8.2 fl (7.5-11.1) 01/18/16 08:00 CMP Sodium 140 mmol/L (136-145) 01/18/16 08:00 Potassium 3.6 mmol/L (3.5-5.1) 01/18/16 08:00 Chloride 100 mmol/L (98-107) 01/18/16 08:00 Carbon Dioxide 31 mmol/L (21-32) 01/18/16 08:00 Anion Gap 9 (8-16) 01/18/16 08:00 BUN 20 mg/dL (7-18) H 01/18/16 08:00 Creatinine 0.8 mg/dL (0.7-1.3) 01/18/16 08:00 Creat Clearance w eGFR > 60 (>60) 01/18/16 08:00 Random Glucose 169 mg/dL (74-106) H 01/18/16 08:00 Calcium 9.6 mg/dL (8.5-10.1) 01/18/16 08:00 Total Bilirubin 0.2 mg/dL (0.2-1.0) D 01/18/16 08:00 AST 14 U/L (15-37) L 01/18/16 08:00 ALT 22 U/L (12-78) 01/18/16 08:00 Alkaline Phosphatase 93 U/L (45-117) 01/18/16 08:00 Total Protein 7.6 g/dl (6.4-8.2) 01/18/16 08:00 Albumin 3.3 g/dl (3.4-5.0) L 01/18/16 08:00 CARDIAC ENZYMES Creatine Kinase 62 IU/L (38-174) 06/28/15 09:35 Troponin I 0.07 ng/ml (0.03-0.5) D 07/09/15 05:00 Current Medications Generic Name Dose Route Start Last Admin Trade Name Ginette PRN Reason Stop Dose Admin Acetaminophen 650 mg 12/29/15 10:43 01/06/16 10:26 Tylenol Oral Solution - GT 650 mg Q6H PRN Administration FEVER Amino Acids 30 ml 12/29/15 17:30 01/18/16 09:53 Prostat Sugar-Free Packet - PO 30 ml BID@0800,1730 [facility] Administration Amlodipine Besylate 10 mg 12/30/15 10:00 01/18/16 09:53 Norvasc - GT 10 mg DAILY [facility] Administration Guaifenesin 10 ml 12/29/15 10:43 01/06/16 17:14 Robitussin Dm - PO 10 ml Q6H PRN Administration COUGH Ibuprofen 200 mg 12/29/15 10:43 01/15/16 05:55 Motrin Oral Suspension - PO 200 mg Q6H PRN Administration FEVER Insulin Aspart 1 vial 12/29/15 12:00 01/18/16 12:54 Novolog Vial Sliding Scale - SQ Not Given Q6HPO [facility] Protocol Insulin Detemir 28 units 12/29/15 22:00 01/17/16 23:27 Levemir Vial SQ 28 units HS KWAKU Administration Lactobacillus Acidophilus 1 tab 12/30/15 10:00 01/18/16 09:53 Bacid - PO 1 tab DAILY [facility] Administration Lisinopril 40 mg 12/30/15 10:00 01/18/16 09:53 Prinivil - GT 40 mg DAILY [facility] Administration Metoprolol Tartrate 150 mg 12/29/15 22:00 01/18/16 09:53 Lopressor - GT 150 mg BID K[facility]AK[facility] Administration Metoprolol Tartrate 5 mg 12/29/15 10:43 Lopressor Injection - IVPB Q6H PRN HYPERTENSION Multivitamins 5 ml 12/30/15 10:00 01/18/16 09:54 Thera-Plus - GT 5 ml DAILY KWAKU Administration Pantoprazole Sodium 40 mg 12/30/15 10:00 01/18/16 09:53 Protonix Packets For Oral Suspension - GT 40 mg DAILY KWAKU Administration Hepatic Panel Total Bilirubin 0.2 mg/dL (0.2-1.0) D 01/18/16 08:00 AST 14 U/L (15-37) L 01/18/16 08:00 ALT 22 U/L (12-78) 01/18/16 08:00 Alkaline Phosphatase 93 U/L (45-117) 01/18/16 08:00 Albumin 3.3 g/dl (3.4-5.0) L 01/18/16 08:00 Medication Instructions Recorded Amino Acids/Protein Hydrolys 30 ml GT DAILY packet 08/09/15 [Prostat Sugar-Free Packet -] Amlodipine Besylate [Norvasc -] 10 mg GT DAILY tablet 08/09/15 Chlorhexidine Gluconate [Peridex -] 15 ml MM BID cup 08/09/15 Insulin (Levemir) [Levemir Flexpen 25 units SQ HS pen 08/09/15 -] Insulin (Novolog) [Novolog Flexpen 3 units SQ Q6HPO pen 08/09/15 -] Insulin Sliding Scale [Novolog 0 units SQ Q6HPO pen 08/09/15 Vial Sliding Scale -] Lisinopril [Prinivil -] 20 mg GT DAILY tablet 08/09/15 Metoprolol Tartrate Injection 5 mg IVPB Q6H PRN #0 vial 08/09/15 [Lopressor Injection -] Metoprolol Tartrate [Lopressor -] 100 mg GT BID tablet 08/09/15 Ondansetron Injection [Zofran 4 mg IVPB Q6H PRN #0 vial 08/09/15 Injection] Pantoprazole Suspension [Protonix 40 mg GT DAILY packet 08/09/15 Packets For Oral Suspension -] Vancomycin Oral Solution 125 mg GT Q6HPO ml 08/09/15 Assessment/plan: 75 year old male with PMHx of HTN, IDDM, inguinal hernia who presented to the ED with diverticular bleed s/p Righ hemicolectomy with 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 PT developed HCAP and completed 7 days course of vanc/zosyn on 12/01/15. no change in his outcome, weekly labs.stable . 1. 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 2. Anoxic brain injury s/p brainstem CVAs , Mental status unchanged 3. Respiratory failure secondary to anoxic brain injury - Cont trach collar , duonebs PRN ,Albuterol neb PRN 4. HTN Cont lisinopril, metoprolol, amlodipine 5. Multiple pressure ulcers, Stage III sacrum healing - Stage II left ear healing, Turn and position q2h 6. IDDM, Levemir 28 units HS - ISS BGM ACHS FEN: - Tube feeds: Vital 1.5 @60ml/hr continue - PT for passive ROM CODE STATUS: DNR
[2016-01-18] MEDS: INSULIN DETEMIR 100 UNITS/ML MDV SQ SCH (23:06)
[2016-01-19] MEDS: INSULIN SLIDING SCALE (NOVOLOG) 1 VIAL SQ SCH ×3 (06:34→17:54)
[2016-01-19] MEDS: LISINOPRIL 20 MG TABLET (FP) GT SCH (10:03)
[2016-01-19] MEDS: METOPROLOL TARTRATE 50 MG TABLET (FP) GT SCH ×2 (10:04→21:33)
[2016-01-19] MEDS: PANTOPRAZOLE SOD 40 MG SUSPENSION PACKET GT SCH (10:04)
[2016-01-19] MEDS: AMINO ACIDS/PROTEIN HYDROLYS SUGAR-FREE 30 ML PACKET PO SCH ×2 (10:04→17:54)
[2016-01-19] MEDS: MULTIVITAMINS THERAPEUTIC GT SCH (10:04)
[2016-01-19] MEDS: amLODIPine BESYLATE 10 MG TABLET (FP) GT SCH (10:04)
[2016-01-19] MEDS: LACTOBACILLUS ACIDOPHILUS 1 EACH TAB (FP) PO SCH (10:04)
--- NOTE | 2016-01-19 19:56 | PN ---
Physical Exam: SUBJECTIVE: Patient seen and examined. no OBJECTIVE: Vital Signs - 24 hr 01/18/16 01/18/16 01/18/16 20:03 21:00 23:05 Temperature 98.8 F 98.7 F Pulse Rate 89 96 H Respiratory 22 22 Rate Blood Pressure 142/83 158/91 O2 Sat by Pulse 98 Oximetry (%) 01/19/16 01/19/16 01/19/16 06:00 09:00 09:19 Temperature 97.0 F L 98.7 F Pulse Rate 88 87 Respiratory 22 20 Rate Blood Pressure 145/76 139/80 O2 Sat by Pulse 97 Oximetry (%) 01/19/16 01/19/16 09:21 14:28 Temperature 98.6 F Pulse Rate 89 80 Respiratory 18 Rate Blood Pressure 147/83 O2 Sat by Pulse 97 Oximetry (%) GENERAL: The patient is awake, alert, and fully oriented, in no acute distress. HEAD: Normal with no signs of trauma. EYES: PERRL, extraocular movements intact, sclera anicteric, conjunctiva clear. No ptosis. ENT: Ears normal, nares patent, oropharynx clear without exudates, moist mucous membranes. NECK: Trachea midline, full range of motion, supple. LUNGS: Breath sounds equal, clear to auscultation bilaterally, no wheezes, no crackles, no accessory muscle use. HEART: Regular rate and rhythm, S1, S2 without murmur, rub or gallop. ABDOMEN: Soft, nontender, nondistended, normoactive bowel sounds, no guarding, no rebound, no hepatosplenomegaly, no masses. EXTREMITIES: 2+ pulses, warm, well-perfused, no edema. NEUROLOGICAL: Cranial nerves II through XII grossly intact. Normal speech, gait not observed. PSYCH: Normal mood, normal affect. SKIN: Warm, dry, normal turgor, no rashes or lesions noted Laboratory Results - last 24 hr 01/18/16 01/19/16 01/19/16 23:01 06:33 12:29 POC Glucometer 133 148 190 01/19/16 17:44 POC Glucometer 144 Active Medications Generic Name Dose Route Start Last Admin Trade Name Freq PRN Reason Stop Dose Admin Acetaminophen 650 mg 12/29/15 10:43 01/06/16 10:26 Tylenol Oral Solution - GT 650 mg Q6H PRN Administration FEVER Amino Acids 30 ml 12/29/15 17:30 01/19/16 17:54 Prostat Sugar-Free Packet - PO 30 ml BID@0800,1730 [facility] Administration Amlodipine Besylate 10 mg 12/30/15 10:00 01/19/16 10:04 Norvasc - GT 10 mg DAILY [facility]AKU Administration Guaifenesin 10 ml 12/29/15 10:43 01/06/16 17:14 Robitussin Dm - PO 10 ml Q6H PRN Administration COUGH Ibuprofen 200 mg 12/29/15 10:43 01/15/16 05:55 Motrin Oral Suspension - PO 200 mg Q6H PRN Administration FEVER Insulin Aspart 1 vial 12/29/15 12:00 01/19/16 17:54 Novolog Vial Sliding Scale - SQ Not Given Q6HPO [facility] Protocol Insulin Detemir 28 units 12/29/15 22:00 01/18/16 23:06 Levemir Vial SQ 28 units HS KWAKU Administration Lactobacillus Acidophilus 1 tab 12/30/15 10:00 01/19/16 10:04 Bacid - PO 1 tab DAILY KWAKU Administration Lisinopril 40 mg 12/30/15 10:00 01/19/16 10:03 Prinivil - GT 40 mg DAILY [facility] Administration Metoprolol Tartrate 150 mg 12/29/15 22:00 01/19/16 10:04 Lopressor - GT 150 mg BID [facility] Administration Metoprolol Tartrate 5 mg 12/29/15 10:43 Lopressor Injection - IVPB Q6H PRN HYPERTENSION Multivitamins 5 ml 12/30/15 10:00 01/19/16 10:04 Thera-Plus - GT 5 ml DAILY [facility] Administration Pantoprazole Sodium 40 mg 12/30/15 10:00 01/19/16 10:04 Protonix Packets For Oral Suspension - GT 40 mg DAILY KWAKU Administration ASSESSMENT/PLAN:
--- NOTE | 2016-01-19 19:58 | PN ---
Progress Note (short form) - Note Progress Note: Subjective: unable to obtain hx. Objective: Last Vital Signs Temp Pulse Resp BP Pulse Ox 98.6 F 80 18 147/83 97 01/19/16 14:28 01/19/16 14:28 01/19/16 14:28 01/19/16 14:28 01/19/16 09:21 Physical Exam: NAD .awake , tracks CV: RRR, no MRG lungs: course breath sounds b/l anteriorly ext: no edema on legs. abd: soft, NT, ND , nl BS. PEG in place with intact skin . Laboratory Results - last 24 hr 01/18/16 01/19/16 01/19/16 23:01 06:33 12:29 POC Glucometer 133 148 190 01/19/16 17:44 POC Glucometer 144 Assessment/Plan: 75 yo M with PMH HTN, DM, inguinal hernia a/w BRBPR and melena with multiple syncopal episodes. Dx with persistent diverticular bleed with R hemicolectomy, course complicated with CVA now in the ICU unresponsive and anoxic brain injury had tracheostomy on 07/23. also s/p PEG placement and iliac artery bleed s /p embolization 09/03/15. received a course of ABx for HCAp in Oct/nov 1-diarrhea : c diff neg . resolved . 2- b/l DVTs : s/p IVC filter 3- acute GI bleed, s/p colonoscopy and R hemicolectomy. no further bleed 4- Anoxic brain injury and CVA, s/p Trach 07/23. s/p PEG 5- HTN: cont meds . 6- DM: cont insulin 7- nutrition through PEG : at goal 60 cc/hr.cont free water rate at 50 cc /hr DNR spoke to his daughter at bed side
[2016-01-19] MEDS: INSULIN DETEMIR 100 UNITS/ML MDV SQ SCH (21:32)
[2016-01-20] MEDS: INSULIN SLIDING SCALE (NOVOLOG) 1 VIAL SQ SCH ×5 (00:28→23:24)
[2016-01-20] MEDS: AMINO ACIDS/PROTEIN HYDROLYS SUGAR-FREE 30 ML PACKET PO SCH ×2 (08:22→23:23)
[2016-01-20] MEDS: METOPROLOL TARTRATE 50 MG TABLET (FP) GT SCH ×2 (09:34→23:24)
[2016-01-20] MEDS: PANTOPRAZOLE SOD 40 MG SUSPENSION PACKET GT SCH (09:34)
[2016-01-20] MEDS: LACTOBACILLUS ACIDOPHILUS 1 EACH TAB (FP) PO SCH (09:34)
[2016-01-20] MEDS: amLODIPine BESYLATE 10 MG TABLET (FP) GT SCH (09:35)
[2016-01-20] MEDS: MULTIVITAMINS THERAPEUTIC GT SCH (09:35)
[2016-01-20] MEDS: LISINOPRIL 20 MG TABLET (FP) GT SCH (09:35)
[2016-01-20] MEDS: INSULIN DETEMIR 100 UNITS/ML MDV SQ SCH (23:23)
[2016-01-21] MEDS: INSULIN SLIDING SCALE (NOVOLOG) 1 VIAL SQ SCH ×4 (06:23→23:54)
[2016-01-21] MEDS: AMINO ACIDS/PROTEIN HYDROLYS SUGAR-FREE 30 ML PACKET PO SCH ×2 (08:39→18:10)
[2016-01-21] MEDS: LISINOPRIL 20 MG TABLET (FP) GT SCH (10:49)
[2016-01-21] MEDS: LACTOBACILLUS ACIDOPHILUS 1 EACH TAB (FP) PO SCH (10:49)
[2016-01-21] MEDS: PANTOPRAZOLE SOD 40 MG SUSPENSION PACKET GT SCH (10:50)
[2016-01-21] MEDS: amLODIPine BESYLATE 10 MG TABLET (FP) GT SCH (10:50)
[2016-01-21] MEDS: METOPROLOL TARTRATE 50 MG TABLET (FP) GT SCH ×2 (10:50→23:54)
[2016-01-21] MEDS: MULTIVITAMINS THERAPEUTIC GT SCH (10:51)
--- NOTE | 2016-01-21 19:18 | PN ---
Progress Note (short form) - Note Progress Note: Subjective: unable to obtain hx. no events per RN Objective: Last Vital Signs Temp Pulse Resp BP Pulse Ox 98.3 F 88 20 138/70 98 01/21/16 14:42 01/21/16 17:18 01/21/16 14:42 01/21/16 14:42 01/21/16 17:18 Physical Exam: NAD .awake , tracks , clear secretions from trach CV: RRR, no MRG lungs: course breath sounds b/l anteriorly ext: no edema on legs. abd: soft, NT, ND , nl BS. PEG in place with intact skin . Laboratory Results - last 24 hr 01/20/16 01/21/16 01/21/16 23:21 06:20 12:33 POC Glucometer 168 155 179 01/21/16 18:08 POC Glucometer 165 Assessment/Plan: 75 yo M with PMH HTN, DM, inguinal hernia a/w BRBPR and melena with multiple syncopal episodes. Dx with persistent diverticular bleed with R hemicolectomy, course complicated with CVA now in the ICU unresponsive and anoxic brain injury had tracheostomy on 07/23. also s/p PEG placement and iliac artery bleed s /p embolization 09/03/15. received a course of ABx for HCAp in Oct/nov 1-diarrhea: resolved 2- b/l DVTs : s/p IVC filter 3- acute GI bleed, s/p colonoscopy and R hemicolectomy. no further bleed 4- Anoxic brain injury and CVA, s/p Trach 07/23. s/p PEG 5- HTN: cont meds . 6- DM: cont insulin 7- nutrition through PEG : at goal 60 cc/hr. cont free water rate at 50 cc /hr DNR
[2016-01-21] MEDS: INSULIN DETEMIR 100 UNITS/ML MDV SQ SCH (23:54)
[2016-01-22] MEDS: INSULIN SLIDING SCALE (NOVOLOG) 1 VIAL SQ SCH ×4 (06:08→23:21)
[2016-01-22] MEDS: AMINO ACIDS/PROTEIN HYDROLYS SUGAR-FREE 30 ML PACKET PO SCH ×2 (08:08→17:05)
[2016-01-22] MEDS: amLODIPine BESYLATE 10 MG TABLET (FP) GT SCH (11:14)
[2016-01-22] MEDS: METOPROLOL TARTRATE 50 MG TABLET (FP) GT SCH ×2 (11:14→22:44)
[2016-01-22] MEDS: LACTOBACILLUS ACIDOPHILUS 1 EACH TAB (FP) PO SCH (11:14)
[2016-01-22] MEDS: LISINOPRIL 20 MG TABLET (FP) GT SCH (11:15)
[2016-01-22] MEDS: MULTIVITAMINS THERAPEUTIC GT SCH (11:16)
[2016-01-22] MEDS: PANTOPRAZOLE SOD 40 MG SUSPENSION PACKET GT SCH (11:16)
--- NOTE | 2016-01-22 19:02 | PN ---
Progress Note (short form) - Note Progress Note: Subjective: unable to obtain hx. no events per RN Objective: Last Vital Signs Temp Pulse Resp BP Pulse Ox 99.2 F 88 20 140/87 97 01/22/16 15:12 01/22/16 15:12 01/22/16 15:12 01/22/16 15:12 01/22/16 11:42 Physical Exam: NAD .awake , tracks , clear secretions from trach CV: RRR, no MRG lungs: course breath sounds b/l anteriorly ext: no edema on legs. abd: soft, NT, ND , nl BS. PEG in place with intact skin . Laboratory Results - last 24 hr 01/21/16 01/22/16 01/22/16 23:50 06:07 12:36 POC Glucometer 177 135 158 01/22/16 18:29 POC Glucometer 176 Assessment/Plan: 75 yo M with PMH HTN, DM, inguinal hernia a/w BRBPR and melena with multiple syncopal episodes. Dx with persistent diverticular bleed with R hemicolectomy, course complicated with CVA now in the ICU unresponsive and anoxic brain injury had tracheostomy on 07/23. also s/p PEG placement and iliac artery bleed s /p embolization 09/03/15. received a course of ABx for HCAp in Oct/nov 1-diarrhea: resolved 2- b/l DVTs : s/p IVC filter 3- acute GI bleed, s/p colonoscopy and R hemicolectomy. no further bleed 4- Anoxic brain injury and CVA, s/p Trach 07/23. s/p PEG 5- HTN: cont meds . 6- DM: cont insulin 7- nutrition through PEG : at goal 60 cc/hr. cont free water rate at 50 cc /hr DNR
[2016-01-22] MEDS: INSULIN DETEMIR 100 UNITS/ML MDV SQ SCH (22:02)
[2016-01-23] MEDS: INSULIN SLIDING SCALE (NOVOLOG) 1 VIAL SQ SCH ×3 (06:46→18:08)
[2016-01-23] MEDS: AMINO ACIDS/PROTEIN HYDROLYS SUGAR-FREE 30 ML PACKET PO SCH ×2 (08:49→18:08)
[2016-01-23] MEDS: METOPROLOL TARTRATE 50 MG TABLET (FP) GT SCH ×2 (09:38→22:15)
[2016-01-23] MEDS: LACTOBACILLUS ACIDOPHILUS 1 EACH TAB (FP) PO SCH (09:39)
[2016-01-23] MEDS: PANTOPRAZOLE SOD 40 MG SUSPENSION PACKET GT SCH (09:39)
[2016-01-23] MEDS: LISINOPRIL 20 MG TABLET (FP) GT SCH (09:39)
[2016-01-23] MEDS: amLODIPine BESYLATE 10 MG TABLET (FP) GT SCH (09:39)
[2016-01-23] MEDS: MULTIVITAMINS THERAPEUTIC GT SCH (09:40)
--- NOTE | 2016-01-23 18:30 | PN ---
Progress Note (short form) - Note Progress Note: Subjective: unable to obtain hx. no events per RN Objective: Last Vital Signs Temp Pulse Resp BP Pulse Ox 99.3 F 82 20 153/89 99 01/23/16 15:18 01/23/16 15:18 01/23/16 15:18 01/23/16 15:18 01/23/16 11:04 Physical Exam: NAD .awake , tracks , clear secretions from trach CV: RRR, no MRG lungs: course breath sounds b/l anteriorly ext: no edema on legs. abd: soft, NT, ND , nl BS. PEG in place with intact skin . Laboratory Results - last 24 hr 01/22/16 01/22/16 01/23/16 18:29 22:01 06:45 POC Glucometer 176 134 160 01/23/16 12:19 POC Glucometer 140 Assessment/Plan: 75 yo M with PMH HTN, DM, inguinal hernia a/w BRBPR and melena with multiple syncopal episodes. Dx with persistent diverticular bleed with R hemicolectomy, course complicated with CVA now in the ICU unresponsive and anoxic brain injury had tracheostomy on 07/23. also s/p PEG placement and iliac artery bleed s /p embolization 09/03/15. received a course of ABx for HCAp in Oct/nov 1-diarrhea: resolved 2- b/l DVTs : s/p IVC filter 3- acute GI bleed, s/p colonoscopy and R hemicolectomy. no further bleed 4- Anoxic brain injury and CVA, s/p Trach 07/23. s/p PEG 5- HTN: cont meds . 6- DM: cont insulin . 7- nutrition through PEG : at goal 60 cc/hr. cont free water rate at 50 cc /hr check BMP tomorrow DNR
[2016-01-23] MEDS: INSULIN DETEMIR 100 UNITS/ML MDV SQ SCH (22:15)
[2016-01-24] MEDS: INSULIN SLIDING SCALE (NOVOLOG) 1 VIAL SQ SCH ×4 (00:10→17:26)
[2016-01-24 08:39] LABS: CREATININE 0.8 mg/dL (0.7-1.3)
[2016-01-24] MEDS: AMINO ACIDS/PROTEIN HYDROLYS SUGAR-FREE 30 ML PACKET PO SCH ×2 (08:57→17:25)
[2016-01-24] MEDS: amLODIPine BESYLATE 10 MG TABLET (FP) GT SCH (10:54)
[2016-01-24] MEDS: METOPROLOL TARTRATE 50 MG TABLET (FP) GT SCH ×2 (10:54→22:57)
[2016-01-24] MEDS: LACTOBACILLUS ACIDOPHILUS 1 EACH TAB (FP) PO SCH (10:54)
[2016-01-24] MEDS: PANTOPRAZOLE SOD 40 MG SUSPENSION PACKET GT SCH (10:58)
[2016-01-24] MEDS: LISINOPRIL 20 MG TABLET (FP) GT SCH (10:58)
[2016-01-24] MEDS: MULTIVITAMINS THERAPEUTIC GT SCH (10:58)
--- NOTE | 2016-01-24 20:16 | PN ---
Progress Note (short form) - Note Progress Note: Subjective: unable to obtain hx. no events per RN Objective: Last Vital Signs Temp Pulse Resp BP Pulse Ox 98.7 F 88 20 150/80 97 01/24/16 14:53 01/24/16 14:53 01/24/16 14:53 01/24/16 14:53 01/24/16 10:45 Physical Exam: NAD .awake , tracks , clear secretions from trach CV: RRR, no MRG lungs: course breath sounds b/l anteriorly ext: no edema on legs. abd: soft, NT, ND , nl BS. PEG in place with intact skin . Laboratory Results - last 24 hr 01/23/16 01/24/16 01/24/16 22:13 06:26 06:50 Sodium 142 Potassium 3.6 Chloride 102 Carbon Dioxide 30 Anion Gap 10 BUN 24 H Creatinine 0.8 POC Glucometer 138 169 Random Glucose 149 H Calcium 10.0 01/24/16 01/24/16 10:56 17:23 Sodium Potassium Chloride Carbon Dioxide Anion Gap BUN Creatinine POC Glucometer 125 169 Random Glucose Calcium Assessment/Plan: 75 yo M with PMH HTN, DM, inguinal hernia a/w BRBPR and melena with multiple syncopal episodes. Dx with persistent diverticular bleed with R hemicolectomy, course complicated with CVA now in the ICU unresponsive and anoxic brain injury had tracheostomy on 07/23. also s/p PEG placement and iliac artery bleed s /p embolization 09/03/15. received a course of ABx for HCAp in Oct/nov 1-diarrhea: resolved 2- b/l DVTs : s/p IVC filter 3- acute GI bleed, s/p colonoscopy and R hemicolectomy. no further bleed 4- Anoxic brain injury and CVA, s/p Trach 07/23. s/p PEG 5- HTN: cont meds . 6- DM: cont insulin . 7- nutrition through PEG : at goal 60 cc/hr. cont free water rate at 50 cc /hr labs reviewed. DNR
[2016-01-24] MEDS: INSULIN DETEMIR 100 UNITS/ML MDV SQ SCH (22:58)
[2016-01-25] MEDS: INSULIN SLIDING SCALE (NOVOLOG) 1 VIAL SQ SCH ×4 (00:35→17:01)
[2016-01-25] MEDS: AMINO ACIDS/PROTEIN HYDROLYS SUGAR-FREE 30 ML PACKET PO SCH ×2 (09:04→18:22)
[2016-01-25] MEDS: MULTIVITAMINS THERAPEUTIC GT SCH (11:53)
[2016-01-25] MEDS: PANTOPRAZOLE SOD 40 MG SUSPENSION PACKET GT SCH (11:53)
[2016-01-25] MEDS: METOPROLOL TARTRATE 50 MG TABLET (FP) GT SCH ×2 (11:54→23:00)
[2016-01-25] MEDS: LISINOPRIL 20 MG TABLET (FP) GT SCH (11:55)
[2016-01-25] MEDS: amLODIPine BESYLATE 10 MG TABLET (FP) GT SCH (11:56)
[2016-01-25] MEDS: LACTOBACILLUS ACIDOPHILUS 1 EACH TAB (FP) PO SCH (11:56)
--- NOTE | 2016-01-25 16:26 | PN ---
Progress Note (short form) - Note Progress Note: Subjective: unable to obtain hx. no events per RN Objective: Last Vital Signs Temp Pulse Resp BP Pulse Ox 99.8 F H 87 20 147/78 97 01/25/16 14:58 01/25/16 14:58 01/25/16 14:58 01/25/16 14:58 01/25/16 11:17 Physical Exam: NAD .awake , clear secretions from trach CV: RRR, no MRG lungs: course breath sounds b/l anteriorly ext: no edema on legs. abd: soft, NT, ND , nl BS. PEG in place with intact skin . Laboratory Results - last 24 hr 01/24/16 01/25/16 01/25/16 17:23 00:05 05:30 POC Glucometer 169 176 161 01/25/16 12:27 POC Glucometer 159 Assessment/Plan: 75 yo M with PMH HTN, DM, inguinal hernia a/w BRBPR and melena with multiple syncopal episodes. Dx with persistent diverticular bleed with R hemicolectomy, course complicated with CVA now in the ICU unresponsive and anoxic brain injury had tracheostomy on 07/23. also s/p PEG placement and iliac artery bleed s /p embolization 09/03/15. received a course of ABx for HCAp in Oct/nov 1-diarrhea: resolved 2- b/l DVTs : s/p IVC filter 3- acute GI bleed, s/p colonoscopy and R hemicolectomy. no further bleed 4- Anoxic brain injury and CVA, s/p Trach 07/23. s/p PEG 5- HTN: cont meds . 6- DM: cont insulin . 7- nutrition through PEG : at goal 60 cc/hr. cont free water rate at 50 cc /hr DNR
[2016-01-25] MEDS: INSULIN DETEMIR 100 UNITS/ML MDV SQ SCH (22:56)
[2016-01-26] MEDS: INSULIN SLIDING SCALE (NOVOLOG) 1 VIAL SQ SCH ×4 (00:25→18:24)
[2016-01-26] MEDS: AMINO ACIDS/PROTEIN HYDROLYS SUGAR-FREE 30 ML PACKET PO SCH ×2 (09:00→18:26)
[2016-01-26] MEDS: MULTIVITAMINS THERAPEUTIC GT SCH (10:47)
[2016-01-26] MEDS: PANTOPRAZOLE SOD 40 MG SUSPENSION PACKET GT SCH (10:47)
[2016-01-26] MEDS: amLODIPine BESYLATE 10 MG TABLET (FP) GT SCH (10:47)
[2016-01-26] MEDS: LACTOBACILLUS ACIDOPHILUS 1 EACH TAB (FP) PO SCH (10:47)
[2016-01-26] MEDS: METOPROLOL TARTRATE 50 MG TABLET (FP) GT SCH ×2 (10:47→21:41)
[2016-01-26] MEDS: LISINOPRIL 20 MG TABLET (FP) GT SCH (10:47)
--- NOTE | 2016-01-26 12:08 | PN ---
Physical Exam: SUBJECTIVE: Patient seen and examined I have seen this patient for the 1st time on 11/18/2015,was admitted on 2014. Date of admission 06/27/2015 for GI bleed. Events noted. Patient is a 75 yo M with PMHx HTN, DM, inguinal hernia was admitted on 2014 for Bright red blood per rectum and melena with multiple syncopal episodes. Dxgnosed with persistent diverticular bleed s/p colonoscopy ,s/p R hemicolectomy due to GI bleed on 06/29/2015. Course was complicated with CVA. patient was in the ICU unresponsive with anoxic brain injury had tracheostomy on 07/23/2015 .and then transferred to floor. Patient is/p IVC filter due to having bilateral DVT. no new findings. no change his status. OBJECTIVE: Vital Signs - 24 hr 01/25/16 01/25/16 01/25/16 14:58 18:00 21:00 Temperature 99.8 F H 98.6 F Pulse Rate 87 79 Respiratory 20 20 Rate Blood Pressure 147/78 137/68 O2 Sat by Pulse 97 Oximetry (%) 01/26/16 01/26/16 01/26/16 06:00 10:00 11:21 Temperature 97.2 F L 98.6 F Pulse Rate 80 88 92 H Respiratory 20 20 Rate Blood Pressure 146/80 151/82 O2 Sat by Pulse 100 Oximetry (%) SKIN: Warm, dry, normal turgor, no rashes or lesions noted GENERAL: The patient has periods of somnolence, periods of wakefulness. Awake today, moving head back and forth in the absence of any type of stimulus. No vocalization, no grimacing. No indication of pain. HEAD: Normal with no signs of trauma. EYES: Pupils equal, round and reactive to light, sclera anicteric, conjunctiva clear. ENT: Ears normal, nares patent. Moist mucous membranes. Trach collar, thin, white/sharma secretions. NECK: Normal range of motion, supple without lymphadenopathy, JVD, or masses. LUNGS: Coarse breath sounds. No wheezes, and no crackles. HEART: Regular rate and rhythm, normal S1 and S2 without murmur, rub or gallop. ABDOMEN: Soft, nontender, normoactive bowel sounds. No guarding, no rebound. EXTREMITIES: 2+ pulses, warm, well-perfused, no edema. NEUROLOGICAL: Unable to assess. SKIN: Wounds not visualized today. Laboratory Results - last 24 hr 01/25/16 01/25/16 01/26/16 12:27 16:53 00:18 POC Glucometer 159 138 163 01/26/16 05:26 POC Glucometer 145 Active Medications Generic Name Dose Route Start Last Admin Trade Name Freq PRN Reason Stop Dose Admin Acetaminophen 650 mg 12/29/15 10:43 01/06/16 10:26 Tylenol Oral Solution - GT 650 mg Q6H PRN Administration FEVER Amino Acids 30 ml 12/29/15 17:30 01/26/16 09:00 Prostat Sugar-Free Packet - PO 30 ml BID@0800,1730 KWAKU Administration Amlodipine Besylate 10 mg 12/30/15 10:00 01/26/16 10:47 Norvasc - GT 10 mg DAILY KWAKU Administration Guaifenesin 10 ml 12/29/15 10:43 01/06/16 17:14 Robitussin Dm - PO 10 ml Q6H PRN Administration COUGH Ibuprofen 200 mg 12/29/15 10:43 01/15/16 05:55 Motrin Oral Suspension - PO 200 mg Q6H PRN Administration FEVER Insulin Aspart 1 vial 12/29/15 12:00 01/26/16 11:49 Novolog Vial Sliding Scale - SQ 2 units Q6HPO KWAKU Administration Protocol Insulin Detemir 28 units 12/29/15 22:00 01/25/16 22:56 Levemir Vial SQ 28 units HS KWAKU Administration Lactobacillus Acidophilus 1 tab 12/30/15 10:00 01/26/16 10:47 Bacid - PO 1 tab DAILY KWAKU Administration Lisinopril 40 mg 12/30/15 10:00 01/26/16 10:47 Prinivil - GT 40 mg DAILY KWAKU Administration Metoprolol Tartrate 150 mg 12/29/15 22:00 01/26/16 10:47 Lopressor - GT 150 mg BID KWAKU Administration Metoprolol Tartrate 5 mg 12/29/15 10:43 Lopressor Injection - IVPB Q6H PRN HYPERTENSION Multivitamins 5 ml 12/30/15 10:00 01/26/16 10:47 Thera-Plus - GT 5 ml DAILY KWAKU Administration Pantoprazole Sodium 40 mg 12/30/15 10:00 01/26/16 10:47 Protonix Packets For Oral Suspension - GT 40 mg DAILY KWAKU Administration ASSESSMENT/PLAN: Assessment/plan: 75 year old male with PMHx of HTN, IDDM, inguinal hernia who presented to the ED with diverticular bleed s/p Righ hemicolectomy with 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 PT developed HCAP and completed 7 days course of vanc/zosyn on 12/01/15. no change in his outcome, weekly labs.stable . 1. 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 2. Anoxic brain injury s/p brainstem CVAs , Mental status unchanged 3. Respiratory failure secondary to anoxic brain injury - Cont trach collar , duonebs PRN ,Albuterol neb PRN 4. HTN Cont lisinopril, metoprolol, amlodipine 5. Multiple pressure ulcers, Stage III sacrum healing - Stage II left ear healing, Turn and position q2h 6. IDDM, Levemir 28 units HS - ISS BGM ACHS FEN: - continue Tube feeds: Vital 1.5 @60ml/hr continue - PT for passive ROM CODE STATUS: DNR Visit Type - Emergency Visit Emergency Visit: No - New Patient This patient is new to me today: No - Critical Care Critical Care patient: No
[2016-01-26] MEDS: INSULIN DETEMIR 100 UNITS/ML MDV SQ SCH (21:40)
[2016-01-27] MEDS: INSULIN SLIDING SCALE (NOVOLOG) 1 VIAL SQ SCH ×4 (06:13→17:43)
[2016-01-27] MEDS: AMINO ACIDS/PROTEIN HYDROLYS SUGAR-FREE 30 ML PACKET PO SCH ×2 (09:00→17:43)
[2016-01-27] MEDS: PANTOPRAZOLE SOD 40 MG SUSPENSION PACKET GT SCH (10:30)
[2016-01-27] MEDS: LISINOPRIL 20 MG TABLET (FP) GT SCH (10:30)
[2016-01-27] MEDS: METOPROLOL TARTRATE 50 MG TABLET (FP) GT SCH ×2 (10:30→22:01)
[2016-01-27] MEDS: amLODIPine BESYLATE 10 MG TABLET (FP) GT SCH (10:30)
[2016-01-27] MEDS: MULTIVITAMINS THERAPEUTIC GT SCH (10:31)
[2016-01-27] MEDS: LACTOBACILLUS ACIDOPHILUS 1 EACH TAB (FP) PO SCH (10:31)
[2016-01-27] MEDS: ACETAMINOPHEN 650 MG/20.3 ML ORAL SOLUTION (CUPS) GT PRN (10:32)
--- NOTE | 2016-01-27 14:20 | PN ---
Progress Note (short form) - Note Progress Note: I have seen this patient for the 1st time on 11/18/2015,was admitted on 2014. Date of admission 06/27/2015 for GI bleed. Events noted. Patient is a 75 yo M with PMHx HTN, DM, inguinal hernia was admitted on 2014 for Bright red blood per rectum and melena with multiple syncopal episodes. Dxgnosed with persistent diverticular bleed s/p colonoscopy ,s/p R hemicolectomy due to GI bleed on 06/29/2015. Course was complicated with CVA. patient was in the ICU unresponsive with anoxic brain injury had tracheostomy on 07/23/2015 .and then transferred to floor. Patient is/p IVC filter due to having bilateral DVT. Patient is comfortable with no acute distress. Vital Signs Temperature 100.8 F H 01/27/16 09:00 Pulse Rate 122 H 01/27/16 11:03 Respiratory Rate 22 01/27/16 09:00 Blood Pressure 144/97 01/27/16 09:00 O2 Sat by Pulse Oximetry (%) 96 01/27/16 11:03 SKIN: Warm, dry, normal turgor, no rashes or lesions noted GENERAL: The patient has periods of somnolence, periods of wakefulness. Awake today, moving head back and forth in the absence of any type of stimulus. No vocalization, no grimacing. No indication of pain. HEAD: Normal with no signs of trauma. EYES: Pupils equal, round and reactive to light, sclera anicteric, conjunctiva clear. ENT: Ears normal, nares patent. Moist mucous membranes. Trach collar, thin, white/sharma secretions. NECK: Normal range of motion, supple without lymphadenopathy, JVD, or masses. LUNGS: Coarse breath sounds. No wheezes, and no crackles. HEART: Regular rate and rhythm, normal S1 and S2 without murmur, rub or gallop. ABDOMEN: Soft, nontender, normoactive bowel sounds. No guarding, no rebound. EXTREMITIES: 2+ pulses, warm, well-perfused, no edema. NEUROLOGICAL: Unable to assess. SKIN: Wounds not visualized today. CBCD WBC 8.3 K/mm3 (4.0-10.0) 01/18/16 08:00 RBC 3.66 M/mm3 (4.00-5.60) L 01/18/16 08:00 Hgb 10.6 GM/dL (11.7-16.9) L 01/18/16 08:00 Hct 31.6 % (35.4-49) L 01/18/16 08:00 MCV 86.1 fl (80-96) 01/18/16 08:00 MCHC 33.5 g/dl (32.0-35.9) 01/18/16 08:00 RDW 15.4 % (11.9-15.9) 01/18/16 08:00 Plt Count 247 K/MM3 (134-434) 01/18/16 08:00 MPV 8.2 fl (7.5-11.1) 01/18/16 08:00 CMP Sodium 142 mmol/L (136-145) 01/24/16 06:50 Potassium 3.6 mmol/L (3.5-5.1) 01/24/16 06:50 Chloride 102 mmol/L (98-107) 01/24/16 06:50 Carbon Dioxide 30 mmol/L (21-32) 01/24/16 06:50 Anion Gap 10 (8-16) 01/24/16 06:50 BUN 24 mg/dL (7-18) H 01/24/16 06:50 Creatinine 0.8 mg/dL (0.7-1.3) 01/24/16 06:50 Creat Clearance w eGFR > 60 (>60) 01/18/16 08:00 Random Glucose 149 mg/dL (74-106) H 01/24/16 06:50 Calcium 10.0 mg/dL (8.5-10.1) 01/24/16 06:50 Total Bilirubin 0.2 mg/dL (0.2-1.0) D 01/18/16 08:00 AST 14 U/L (15-37) L 01/18/16 08:00 ALT 22 U/L (12-78) 01/18/16 08:00 Alkaline Phosphatase 93 U/L (45-117) 01/18/16 08:00 Total Protein 7.6 g/dl (6.4-8.2) 01/18/16 08:00 Albumin 3.3 g/dl (3.4-5.0) L 01/18/16 08:00 CARDIAC ENZYMES Creatine Kinase 62 IU/L (38-174) 06/28/15 09:35 Troponin I 0.07 ng/ml (0.03-0.5) D 07/09/15 05:00 Current Medications Generic Name Dose Route Start Last Admin Trade Name Freq PRN Reason Stop Dose Admin Acetaminophen 650 mg 12/29/15 10:43 01/27/16 10:32 Tylenol Oral Solution - GT 650 mg Q6H PRN Administration FEVER Amino Acids 30 ml 12/29/15 17:30 01/27/16 09:00 Prostat Sugar-Free Packet - PO 30 ml BID@0800,1730 KWAKU Administration Amlodipine Besylate 10 mg 12/30/15 10:00 01/27/16 10:30 Norvasc - GT 10 mg DAILY KWAKU Administration Guaifenesin 10 ml 12/29/15 10:43 01/06/16 17:14 Robitussin Dm - PO 10 ml Q6H PRN Administration COUGH Ibuprofen 200 mg 12/29/15 10:43 01/15/16 05:55 Motrin Oral Suspension - PO 200 mg Q6H PRN Administration FEVER Insulin Aspart 1 vial 12/29/15 12:00 01/27/16 13:01 Novolog Vial Sliding Scale - SQ Not Given Q6HPO [facility] Protocol Insulin Detemir 28 units 12/29/15 22:00 01/26/16 21:40 Levemir Vial SQ 28 units HS KWAKU Administration Lactobacillus Acidophilus 1 tab 12/30/15 10:00 01/27/16 10:31 Bacid - PO 1 tab DAILY KWAKU Administration Lisinopril 40 mg 12/30/15 10:00 01/27/16 10:30 Prinivil - GT 40 mg DAILY KWAKU Administration Metoprolol Tartrate 150 mg 12/29/15 22:00 01/27/16 10:30 Lopressor - GT 150 mg BID KWAKU Administration Metoprolol Tartrate 5 mg 12/29/15 10:43 Lopressor Injection - IVPB Q6H PRN HYPERTENSION Multivitamins 5 ml 12/30/15 10:00 01/27/16 10:31 Thera-Plus - GT 5 ml DAILY KWAKU Administration Pantoprazole Sodium 40 mg 12/30/15 10:00 01/27/16 10:30 Protonix Packets For Oral Suspension - GT 40 mg DAILY KWAKU Administration Medication Instructions Recorded Amino Acids/Protein Hydrolys 30 ml GT DAILY packet 08/09/15 [Prostat Sugar-Free Packet -] Amlodipine Besylate [Norvasc -] 10 mg GT DAILY tablet 08/09/15 Chlorhexidine Gluconate [Peridex -] 15 ml MM BID cup 08/09/15 Insulin (Levemir) [Levemir Flexpen 25 units SQ HS pen 08/09/15 -] Insulin (Novolog) [Novolog Flexpen 3 units SQ Q6HPO pen 08/09/15 -] Insulin Sliding Scale [Novolog 0 units SQ Q6HPO pen 08/09/15 Vial Sliding Scale -] Lisinopril [Prinivil] 20 mg GT DAILY tablet 08/09/15 Metoprolol Tartrate Injection 5 mg IVPB Q6H PRN #0 vial 08/09/15 [Lopressor Injection -] Metoprolol Tartrate [Lopressor -] 100 mg GT BID tablet 08/09/15 Ondansetron Injection [Zofran 4 mg IVPB Q6H PRN #0 vial 08/09/15 Injection] Pantoprazole Suspension [Protonix 40 mg GT DAILY packet 08/09/15 Packets For Oral Suspension -] Vancomycin Oral Solution 125 mg GT Q6HPO ml 08/09/15 ASSESSMENT/PLAN: Assessment/plan: 75 year old male with PMHx of HTN, IDDM, inguinal hernia who presented to the ED with diverticular bleed s/p Righ hemicolectomy with 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 PT developed HCAP and completed 7 days course of vanc/zosyn on 12/01/15. no change in his outcome, weekly labs.stable. 1. 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 2. Anoxic brain injury s/p brainstem CVAs , Mental status unchanged 3. Respiratory failure secondary to anoxic brain injury - Cont trach collar , duonebs PRN ,Albuterol neb PRN 4. HTN Cont lisinopril, metoprolol, amlodipine 5. Multiple pressure ulcers, Stage III sacrum healing - Stage II left ear healing, Turn and position q2h 6. IDDM, Levemir 28 units HS - ISS BGM ACHS FEN: - continue Tube feeds: Vital 1.5 @60ml/hr continue - PT for passive ROM CODE STATUS: DNR
[2016-01-27] MEDS: INSULIN DETEMIR 100 UNITS/ML MDV SQ SCH (22:01)
[2016-01-28] MEDS: INSULIN SLIDING SCALE (NOVOLOG) 1 VIAL SQ SCH ×4 (01:45→16:41)
--- NOTE | 2016-01-28 09:09 | PN ---
Progress Note (short form) - Note Progress Note: have seen this patient for the 1st time on 11/18/2015,was admitted on 2014. Date of admission 06/27/2015 for GI bleed. Events noted. Patient is a 75 yo M with PMHx HTN, DM, inguinal hernia was admitted on 2014 for Bright red blood per rectum and melena with multiple syncopal episodes. Dxgnosed with persistent diverticular bleed s/p colonoscopy ,s/p R hemicolectomy due to GI bleed on 06/29/2015. Course was complicated with CVA. patient was in the ICU unresponsive with anoxic brain injury had tracheostomy on 07/23/2015 .and then transferred to floor. Patient is/p IVC filter due to having bilateral DVT. Patient is comfortable with no acute distress. Vital Signs Temperature 100.8 F H 01/27/16 09:00 Pulse Rate 122 H 01/27/16 11:03 Respiratory Rate 22 01/27/16 09:00 Blood Pressure 144/97 01/27/16 09:00 O2 Sat by Pulse Oximetry (%) 96 01/27/16 11:03 SKIN: Warm, dry, normal turgor, no rashes or lesions noted GENERAL: The patient has periods of somnolence, periods of wakefulness. Awake today, moving head back and forth in the absence of any type of stimulus. No vocalization, no grimacing. No indication of pain. HEAD: Normal with no signs of trauma. EYES: Pupils equal, round and reactive to light, sclera anicteric, conjunctiva clear. ENT: Ears normal, nares patent. Moist mucous membranes. Trach collar, thin, white/sharma secretions. NECK: Normal range of motion, supple without lymphadenopathy, JVD, or masses. LUNGS: Coarse breath sounds. No wheezes, and no crackles. HEART: Regular rate and rhythm, normal S1 and S2 without murmur, rub or gallop. ABDOMEN: Soft, nontender, normoactive bowel sounds. No guarding, no rebound. EXTREMITIES: 2+ pulses, warm, well-perfused, no edema. NEUROLOGICAL: Unable to assess. SKIN: Wounds not visualized today. CBCD WBC 8.3 K/mm3 (4.0-10.0) 01/18/16 08:00 RBC 3.66 M/mm3 (4.00-5.60) L 01/18/16 08:00 Hgb 10.6 GM/dL (11.7-16.9) L 01/18/16 08:00 Hct 31.6 % (35.4-49) L 01/18/16 08:00 MCV 86.1 fl (80-96) 01/18/16 08:00 MCHC 33.5 g/dl (32.0-35.9) 01/18/16 08:00 RDW 15.4 % (11.9-15.9) 01/18/16 08:00 Plt Count 247 K/MM3 (134-434) 01/18/16 08:00 MPV 8.2 fl (7.5-11.1) 01/18/16 08:00 CMP Sodium 142 mmol/L (136-145) 01/24/16 06:50 Potassium 3.6 mmol/L (3.5-5.1) 01/24/16 06:50 Chloride 102 mmol/L (98-107) 01/24/16 06:50 Carbon Dioxide 30 mmol/L (21-32) 01/24/16 06:50 Anion Gap 10 (8-16) 01/24/16 06:50 BUN 24 mg/dL (7-18) H 01/24/16 06:50 Creatinine 0.8 mg/dL (0.7-1.3) 01/24/16 06:50 Creat Clearance w eGFR > 60 (>60) 01/18/16 08:00 Random Glucose 149 mg/dL (74-106) H 01/24/16 06:50 Calcium 10.0 mg/dL (8.5-10.1) 01/24/16 06:50 Total Bilirubin 0.2 mg/dL (0.2-1.0) D 01/18/16 08:00 AST 14 U/L (15-37) L 01/18/16 08:00 ALT 22 U/L (12-78) 01/18/16 08:00 Alkaline Phosphatase 93 U/L (45-117) 01/18/16 08:00 Total Protein 7.6 g/dl (6.4-8.2) 01/18/16 08:00 Albumin 3.3 g/dl (3.4-5.0) L 01/18/16 08:00 CARDIAC ENZYMES Creatine Kinase 62 IU/L (38-174) 06/28/15 09:35 Troponin I 0.07 ng/ml (0.03-0.5) D 07/09/15 05:00 Current Medications Generic Name Dose Route Start Last Admin Trade Name Freq PRN Reason Stop Dose Admin Acetaminophen 650 mg 12/29/15 10:43 01/27/16 10:32 Tylenol Oral Solution - GT 650 mg Q6H PRN Administration FEVER Amino Acids 30 ml 12/29/15 17:30 01/27/16 17:43 Prostat Sugar-Free Packet - PO 30 ml BID@0800,1730 KWAKU Administration Amlodipine Besylate 10 mg 12/30/15 10:00 01/27/16 10:30 Norvasc - GT 10 mg DAILY KWAKU Administration Guaifenesin 10 ml 12/29/15 10:43 01/06/16 17:14 Robitussin Dm - PO 10 ml Q6H PRN Administration COUGH Ibuprofen 200 mg 12/29/15 10:43 01/15/16 05:55 Motrin Oral Suspension - PO 200 mg Q6H PRN Administration FEVER Insulin Aspart 1 vial 12/29/15 12:00 01/28/16 05:57 Novolog Vial Sliding Scale - SQ 2 units Q6HPO KWAKU Administration Protocol Insulin Detemir 28 units 12/29/15 22:00 01/27/16 22:01 Levemir Vial SQ 28 units HS KWAKU Administration Lactobacillus Acidophilus 1 tab 12/30/15 10:00 01/27/16 10:31 Bacid - PO 1 tab DAILY KWAKU Administration Lisinopril 40 mg 12/30/15 10:00 01/27/16 10:30 Prinivil - GT 40 mg DAILY KWAKU Administration Metoprolol Tartrate 150 mg 12/29/15 22:00 01/27/16 22:01 Lopressor - GT 150 mg BID KWAKU Administration Metoprolol Tartrate 5 mg 12/29/15 10:43 Lopressor Injection - IVPB Q6H PRN HYPERTENSION Multivitamins 5 ml 12/30/15 10:00 01/27/16 10:31 Thera-Plus - GT 5 ml DAILY KWAKU Administration Pantoprazole Sodium 40 mg 12/30/15 10:00 01/27/16 10:30 Protonix Packets For Oral Suspension - GT 40 mg DAILY KWAKU Administration Medication Instructions Recorded Amino Acids/Protein Hydrolys 30 ml GT DAILY packet 08/09/15 [Prostat Sugar-Free Packet -] Amlodipine Besylate [Norvasc -] 10 mg GT DAILY tablet 08/09/15 Chlorhexidine Gluconate [Peridex -] 15 ml MM BID cup 08/09/15 Insulin (Levemir) [Levemir Flexpen 25 units SQ HS pen 08/09/15 -] Insulin (Novolog) [Novolog Flexpen 3 units SQ Q6HPO pen 08/09/15 -] Insulin Sliding Scale [Novolog 0 units SQ Q6HPO pen 08/09/15 Vial Sliding Scale -] Lisinopril [Prinivil] 20 mg GT DAILY tablet 08/09/15 Metoprolol Tartrate Injection 5 mg IVPB Q6H PRN #0 vial 08/09/15 [Lopressor Injection -] Metoprolol Tartrate [Lopressor -] 100 mg GT BID tablet 08/09/15 Ondansetron Injection [Zofran 4 mg IVPB Q6H PRN #0 vial 08/09/15 Injection] Pantoprazole Suspension [Protonix 40 mg GT DAILY packet 08/09/15 Packets For Oral Suspension -] Vancomycin Oral Solution 125 mg GT Q6HPO ml 08/09/15 ASSESSMENT/PLAN: Assessment/plan: 75 year old male with PMHx of HTN, IDDM, inguinal hernia who presented to the ED with diverticular bleed s/p Righ hemicolectomy with 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 PT developed HCAP and completed 7 days course of vanc/zosyn on 12/01/15. no change in his outcome, weekly labs.stable. 1. 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 2. Anoxic brain injury s/p brainstem CVAs , Mental status unchanged 3. Respiratory failure secondary to anoxic brain injury - Cont trach collar , duonebs PRN ,Albuterol neb PRN 4. HTN Cont lisinopril, metoprolol, amlodipine 5. Multiple pressure ulcers, Stage III sacrum healing - Stage II left ear healing, Turn and position q2h 6. IDDM, Levemir 28 units HS - ISS BGM ACHS FEN: - continue Tube feeds: Vital 1.5 @60ml/hr continue - PT for passive ROM CODE STATUS: DNR
[2016-01-28] MEDS: AMINO ACIDS/PROTEIN HYDROLYS SUGAR-FREE 30 ML PACKET PO SCH ×2 (10:51→16:43)
[2016-01-28] MEDS: amLODIPine BESYLATE 10 MG TABLET (FP) GT SCH (10:52)
[2016-01-28] MEDS: METOPROLOL TARTRATE 50 MG TABLET (FP) GT SCH ×2 (10:52→23:00)
[2016-01-28] MEDS: LISINOPRIL 20 MG TABLET (FP) GT SCH (10:52)
[2016-01-28] MEDS: LACTOBACILLUS ACIDOPHILUS 1 EACH TAB (FP) PO SCH (10:52)
[2016-01-28] MEDS: MULTIVITAMINS THERAPEUTIC GT SCH (10:53)
[2016-01-28] MEDS: PANTOPRAZOLE SOD 40 MG SUSPENSION PACKET GT SCH (10:53)
[2016-01-28] MEDS: ACETAMINOPHEN 650 MG/20.3 ML ORAL SOLUTION (CUPS) GT PRN (11:03)
[2016-01-28] MEDS: IBUPROFEN 100 MG/5 ML UNIT DOSE CUPS PO PRN (16:44)
[2016-01-28] MEDS: guaiFENesin/D-METHORPHAN HB 10 ML UNIT-DOSE CUPS PO PRN (16:44)
[2016-01-28] MEDS: INSULIN DETEMIR 100 UNITS/ML MDV SQ SCH (23:00)
[2016-01-29] MEDS: INSULIN SLIDING SCALE (NOVOLOG) 1 VIAL SQ SCH ×2 (06:37→17:13)
[2016-01-29] MEDS: METOPROLOL TARTRATE 50 MG TABLET (FP) GT SCH ×2 (10:40→22:21)
[2016-01-29] MEDS: LACTOBACILLUS ACIDOPHILUS 1 EACH TAB (FP) PO SCH (10:40)
[2016-01-29] MEDS: PANTOPRAZOLE SOD 40 MG SUSPENSION PACKET GT SCH (10:41)
[2016-01-29] MEDS: AMINO ACIDS/PROTEIN HYDROLYS SUGAR-FREE 30 ML PACKET PO SCH ×2 (10:41→16:48)
[2016-01-29] MEDS: LISINOPRIL 20 MG TABLET (FP) GT SCH (10:41)
[2016-01-29] MEDS: amLODIPine BESYLATE 10 MG TABLET (FP) GT SCH (10:41)
[2016-01-29] MEDS: ACETAMINOPHEN 650 MG/20.3 ML ORAL SOLUTION (CUPS) GT PRN (10:42)
[2016-01-29] MEDS: MULTIVITAMINS THERAPEUTIC GT SCH (10:42)
[2016-01-29 15:31] LABS: URINE APPEARANCE CLEAR; URINE BILIRUBIN NEGATIVE (NEGATIVE); URINE BLOOD 2 (NEGATIVE); URINE COLOR YELLOW; URINE GLUCOSE (UA) NEGATIVE (NEGATIVE); URINE KETONE NEGATIVE (NEGATIVE)
[2016-01-29 15:32] LABS: URINE LEUK ESTERASE 3+ (NEGATIVE); URINE NITRITE NEGATIVE (NEGATIVE); URINE PROTEIN 2+ (NEGATIVE); URINE RBC 20 /hpf (0-3); URINE UROBILINOGEN NORMAL (0.2-1.0)
[2016-01-29 15:33] LABS: CALCIUM OXALATE CRYSTALS FEW /hpf (NONE SEEN); URINE BACTERIA MANY /hpf (NEGATIVE); URINE HYALINE CAST 3 /lpf; URINE WBC 176 (3-5); YEAST FEW
[2016-01-29 15:34] LABS: NEG URINE CALC NO
[2016-01-29 15:35] LABS: GRANULAR CASTS 0 /lpf
[2016-01-29] MEDS: INSULIN DETEMIR 100 UNITS/ML MDV SQ SCH (22:21)
--- NOTE | 2016-01-30 02:36 | PN ---
Progress Note (short form) - Note Progress Note: Was called by the nurse that the patient is having fever today. Tylenol was given ,and patient is feeling better today. Vital Signs Temperature 99.3 F 01/29/16 16:20 Pulse Rate 89 01/29/16 16:20 Respiratory Rate 18 01/29/16 16:20 Blood Pressure 139/72 01/29/16 16:20 O2 Sat by Pulse Oximetry (%) 98 01/29/16 21:00 SKIN: Warm, dry, normal turgor, no rashes or lesions noted GENERAL: The patient has periods of somnolence, periods of wakefulness. Awake today EYES: Pupils equal, round and reactive to light, sclera anicteric, conjunctiva clear. ENT: Ears normal, nares patent. Moist mucous membranes. Trach collar, thin, white/sharma secretions. NECK: Normal range of motion, supple without lymphadenopathy, JVD, or masses. LUNGS: Coarse breath sounds. No wheezes, and no crackles. HEART: Regular rate and rhythm, normal S1 and S2 without murmur, rub or gallop. ABDOMEN: Soft, nontender, normoactive bowel sounds. No guarding, no rebound. EXTREMITIES: 2+ pulses, warm, well-perfused, no edema. NEUROLOGICAL: Unable to assess. SKIN: Wounds not visualized today. CBCD WBC 8.3 K/mm3 (4.0-10.0) 01/18/16 08:00 RBC 3.66 M/mm3 (4.00-5.60) L 01/18/16 08:00 Hgb 10.6 GM/dL (11.7-16.9) L 01/18/16 08:00 Hct 31.6 % (35.4-49) L 01/18/16 08:00 MCV 86.1 fl (80-96) 01/18/16 08:00 MCHC 33.5 g/dl (32.0-35.9) 01/18/16 08:00 RDW 15.4 % (11.9-15.9) 01/18/16 08:00 Plt Count 247 K/MM3 (134-434) 01/18/16 08:00 MPV 8.2 fl (7.5-11.1) 01/18/16 08:00 CMP Sodium 142 mmol/L (136-145) 01/24/16 06:50 Potassium 3.6 mmol/L (3.5-5.1) 01/24/16 06:50 Chloride 102 mmol/L (98-107) 01/24/16 06:50 Carbon Dioxide 30 mmol/L (21-32) 01/24/16 06:50 Anion Gap 10 (8-16) 01/24/16 06:50 BUN 24 mg/dL (7-18) H 01/24/16 06:50 Creatinine 0.8 mg/dL (0.7-1.3) 01/24/16 06:50 Creat Clearance w eGFR > 60 (>60) 01/18/16 08:00 Random Glucose 149 mg/dL (74-106) H 01/24/16 06:50 Calcium 10.0 mg/dL (8.5-10.1) 01/24/16 06:50 Total Bilirubin 0.2 mg/dL (0.2-1.0) D 01/18/16 08:00 AST 14 U/L (15-37) L 01/18/16 08:00 ALT 22 U/L (12-78) 01/18/16 08:00 Alkaline Phosphatase 93 U/L (45-117) 01/18/16 08:00 Total Protein 7.6 g/dl (6.4-8.2) 01/18/16 08:00 Albumin 3.3 g/dl (3.4-5.0) L 01/18/16 08:00 CARDIAC ENZYMES Creatine Kinase 62 IU/L (38-174) 06/28/15 09:35 Troponin I 0.07 ng/ml (0.03-0.5) D 07/09/15 05:00 Current Medications Generic Name Dose Route Start Last Admin Trade Name Freq PRN Reason Stop Dose Admin Acetaminophen 650 mg 12/29/15 10:43 01/29/16 10:42 Tylenol Oral Solution - GT 650 mg Q6H PRN Administration FEVER Amino Acids 30 ml 12/29/15 17:30 01/29/16 16:48 Prostat Sugar-Free Packet - PO 30 ml BID@0800,1730 KWAKU Administration Amlodipine Besylate 10 mg 12/30/15 10:00 01/29/16 10:41 Norvasc - GT 10 mg DAILY KWAKU Administration Guaifenesin 10 ml 12/29/15 10:43 04/01/16 16:44 Robitussin Dm - PO 10 ml Q6H PRN Administration COUGH Ibuprofen 200 mg 12/29/15 10:43 01/28/16 16:44 Motrin Oral Suspension - PO 200 mg Q6H PRN Administration FEVER Insulin Aspart 1 vial 01/28/16 16:30 01/29/16 17:13 Novolog Vial Sliding Scale - SQ 2 units BIDI KWAKU Administration Protocol Insulin Detemir 28 units 12/29/15 22:00 01/29/16 22:21 Levemir Vial SQ 28 units HS KWAKU Administration Lactobacillus Acidophilus 1 tab 12/30/15 10:00 01/29/16 10:40 Bacid - PO 1 tab DAILY KWAKU Administration Lisinopril 40 mg 12/30/15 10:00 01/29/16 10:41 Prinivil - GT 40 mg DAILY KWAKU Administration Metoprolol Tartrate 150 mg 12/29/15 22:00 01/29/16 22:21 Lopressor - GT 150 mg BID KWAKU Administration Metoprolol Tartrate 5 mg 12/29/15 10:43 Lopressor Injection - IVPB Q6H PRN HYPERTENSION Multivitamins 5 ml 12/30/15 10:00 01/29/16 10:42 Thera-Plus - GT 5 ml DAILY KWAKU Administration Pantoprazole Sodium 40 mg 12/30/15 10:00 01/29/16 10:41 Protonix Packets For Oral Suspension - GT 40 mg DAILY KWAKU Administration Medication Instructions Recorded Amino Acids/Protein Hydrolys 30 ml GT DAILY packet 08/09/15 [Prostat Sugar-Free Packet -] Amlodipine Besylate [Norvasc -] 10 mg GT DAILY tablet 08/09/15 Chlorhexidine Gluconate [Peridex -] 15 ml MM BID cup 08/09/15 Insulin (Levemir) [Levemir Flexpen 25 units SQ HS pen 08/09/15 -] Insulin (Novolog) [Novolog Flexpen 3 units SQ Q6HPO pen 08/09/15 -] Insulin Sliding Scale [Novolog 0 units SQ Q6HPO pen 08/09/15 Vial Sliding Scale -] Lisinopril [Prinivil] 20 mg GT DAILY tablet 08/09/15 Metoprolol Tartrate Injection 5 mg IVPB Q6H PRN #0 vial 08/09/15 [Lopressor Injection -] Metoprolol Tartrate [Lopressor -] 100 mg GT BID tablet 08/09/15 Ondansetron Injection [Zofran 4 mg IVPB Q6H PRN #0 vial 08/09/15 Injection] Pantoprazole Suspension [Protonix 40 mg GT DAILY packet 08/09/15 Packets For Oral Suspension -] Vancomycin Oral Solution 125 mg GT Q6HPO ml 08/09/15 ASSESSMENT/PLAN: Assessment/plan: 75 year old male with PMHx of HTN, IDDM, inguinal hernia who presented to the ED with diverticular bleed s/p Righ hemicolectomy with 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 PT developed HCAP and completed 7 days course of vanc/zosyn on 12/01/15. no change in his outcome, weekly labs.stable. 1. B/L DVT of lower extremities s/p IVC filter, most likely Fever is from DVT, post tylenol patient is afebrile. 2. Anoxic brain injury s/p brainstem CVAs , Mental status unchanged 3. Respiratory failure secondary to anoxic brain injury - Cont trach collar , duonebs PRN ,Albuterol neb PRN 4. HTN Cont lisinopril, metoprolol, amlodipine 5. Multiple pressure ulcers, Stage III sacrum healing - Stage II left ear healing, Turn and position q2h 6. IDDM, Levemir 28 units HS - ISS BGM ACHS FEN: - continue Tube feeds: Vital 1.5 @60ml/hr continue - PT for passive ROM CODE STATUS: DNR
[2016-01-30] MEDS: INSULIN SLIDING SCALE (NOVOLOG) 1 VIAL SQ SCH ×2 (06:15→17:32)
[2016-01-30] MEDS: LACTOBACILLUS ACIDOPHILUS 1 EACH TAB (FP) PO SCH (10:42)
[2016-01-30] MEDS: METOPROLOL TARTRATE 50 MG TABLET (FP) GT SCH ×2 (10:42→22:35)
[2016-01-30] MEDS: AMINO ACIDS/PROTEIN HYDROLYS SUGAR-FREE 30 ML PACKET PO SCH ×2 (10:42→17:17)
[2016-01-30] MEDS: amLODIPine BESYLATE 10 MG TABLET (FP) GT SCH (10:43)
[2016-01-30] MEDS: LISINOPRIL 20 MG TABLET (FP) GT SCH (10:44)
[2016-01-30] MEDS: PANTOPRAZOLE SOD 40 MG SUSPENSION PACKET GT SCH (10:45)
[2016-01-30] MEDS: MULTIVITAMINS THERAPEUTIC GT SCH (10:45)
[2016-01-30] MEDS: ACETAMINOPHEN 650 MG/20.3 ML ORAL SOLUTION (CUPS) GT PRN ×2 (10:46→23:18)
[2016-01-30] MEDS: IBUPROFEN 100 MG/5 ML UNIT DOSE CUPS PO PRN (14:19)
--- NOTE | 2016-01-30 16:57 | PN ---
Progress Note (short form) - Note Progress Note: Patient continuing to have fevers with Tmax 103. Unresponsive. Vital Signs - 24 hr 01/29/16 01/30/16 01/30/16 21:00 06:00 09:00 Temperature 99.1 F Pulse Rate 110 H Respiratory 20 Rate Blood Pressure 142/87 O2 Sat by Pulse 98 97 Oximetry (%) 01/30/16 01/30/16 01/30/16 10:54 11:00 14:32 Temperature 103.0 F H 102.1 F H Pulse Rate 120 H 105 H 94 H Respiratory 24 20 Rate Blood Pressure 124/78 149/80 O2 Sat by Pulse 96 Oximetry (%) PEx: GEN: Awake, febrile, non-verbal, unresponsive to painful stimuli on trachea collar. HEENT: Perrl, Collar with excessive secretions. CVS: RRR, S1,S2 RESP: Trach collar on vent ABD: Soft , NT , ND, BS+ Ext: equal b/l pulses, b/l foot drop. Neuro: spontaneous response to sternal rub, Laboratory Results - last 24 hr 01/29/16 01/30/16 17:02 06:11 POC Glucometer 193 194 CBCD WBC 8.3 K/mm3 (4.0-10.0) 01/18/16 08:00 RBC 3.66 M/mm3 (4.00-5.60) L 01/18/16 08:00 Hgb 10.6 GM/dL (11.7-16.9) L 01/18/16 08:00 Hct 31.6 % (35.4-49) L 01/18/16 08:00 MCV 86.1 fl (80-96) 01/18/16 08:00 MCHC 33.5 g/dl (32.0-35.9) 01/18/16 08:00 RDW 15.4 % (11.9-15.9) 01/18/16 08:00 Plt Count 247 K/MM3 (134-434) 01/18/16 08:00 MPV 8.2 fl (7.5-11.1) 01/18/16 08:00 CMP Sodium 142 mmol/L (136-145) 01/24/16 06:50 Potassium 3.6 mmol/L (3.5-5.1) 01/24/16 06:50 Chloride 102 mmol/L (98-107) 01/24/16 06:50 Carbon Dioxide 30 mmol/L (21-32) 01/24/16 06:50 Anion Gap 10 (8-16) 01/24/16 06:50 BUN 24 mg/dL (7-18) H 01/24/16 06:50 Creatinine 0.8 mg/dL (0.7-1.3) 01/24/16 06:50 Creat Clearance w eGFR > 60 (>60) 01/18/16 08:00 Random Glucose 149 mg/dL (74-106) H 01/24/16 06:50 Calcium 10.0 mg/dL (8.5-10.1) 01/24/16 06:50 Total Bilirubin 0.2 mg/dL (0.2-1.0) D 01/18/16 08:00 AST 14 U/L (15-37) L 01/18/16 08:00 ALT 22 U/L (12-78) 01/18/16 08:00 Alkaline Phosphatase 93 U/L (45-117) 01/18/16 08:00 Total Protein 7.6 g/dl (6.4-8.2) 01/18/16 08:00 Albumin 3.3 g/dl (3.4-5.0) L 01/18/16 08:00 CARDIAC ENZYMES Creatine Kinase 62 IU/L (38-174) 06/28/15 09:35 Troponin I 0.07 ng/ml (0.03-0.5) D 07/09/15 05:00 assessment/plan: 75-year-old male sent to the ED for diverticular bleed status post right hemicolectomy, hospital course complicated with CVA and anoxic brain injury patient now vent dependent with trachea collar, with PEG, and iliac artery bleed s/p embolization. Status post recent HCAP treated with vancomycin and Zosyn for 7 days. fever: No source detected, possibly secondary to bilateral lower extremity DVTs. Follow blood cultures. Tylenol/Motrin when necessary for fever. Consider cooling blankets. * Anoxic brainy status post CVA-unchanged. Patient now DNR * Vent dependent- must d/w family shaving patient's anderson. * HTN- Cont medications * Decubitus ulcers stage 3 on sacral, turn q2h and wound care daily. * DM2- levemir 28 units HS,RISS * Continue tube feed @ 60ml/hr * PT * CODE; DNR * D/w daughter option of continued care in patient's home country of [place], she was open to investigating the option but concerned about him having visitation while there and the ability to visit him herself as she is with little financial resources. * Daughter also agrees to having the immediate area around his anderson shaved but otherwise wants to respect his wishes Problem List - Problems (1) Anoxic brain damage Code(s): G93.1 - ANOXIC BRAIN DAMAGE, NOT ELSEWHERE CLASSIFIED (2) CVA (cerebral vascular accident) Code(s): I63.9 - CEREBRAL INFARCTION, UNSPECIFIED Qualifiers: CVA mechanism: unspecified Qualified Code(s): I63.9 - Cerebral infarction, unspecified (3) Diabetes Code(s): E11.9 - TYPE 2 DIABETES MELLITUS WITHOUT COMPLICATIONS (4) Fever Code(s): R50.9 - FEVER, UNSPECIFIED (5) H/O right hemicolectomy Code(s): Z90.49 - ACQUIRED ABSENCE OF OTHER SPECIFIED PARTS OF DIGESTIVE TRACT (6) Hypertension Code(s): I10 - ESSENTIAL (PRIMARY) HYPERTENSION (7) Iliac artery bleed Code(s): R58 - HEMORRHAGE, NOT ELSEWHERE CLASSIFIED (8) Respirator dependent Code(s): Z99.11 - DEPENDENCE ON RESPIRATOR [VENTILATOR] STATUS (9) Sacral decubitus ulcer, stage II Code(s): L89.152 - PRESSURE ULCER OF SACRAL REGION, STAGE 2
[2016-01-30] MEDS: INSULIN DETEMIR 100 UNITS/ML MDV SQ SCH (22:35)
[2016-01-31] MEDS: ACETAMINOPHEN 650 MG/20.3 ML ORAL SOLUTION (CUPS) GT PRN (05:25)
[2016-01-31] MEDS: INSULIN SLIDING SCALE (NOVOLOG) 1 VIAL SQ SCH ×2 (06:21→18:24)
[2016-01-31] MEDS: AMINO ACIDS/PROTEIN HYDROLYS SUGAR-FREE 30 ML PACKET PO SCH ×2 (08:38→18:47)
[2016-01-31] MEDS: METOPROLOL TARTRATE 50 MG TABLET (FP) GT SCH ×2 (10:31→21:19)
[2016-01-31] MEDS: LISINOPRIL 20 MG TABLET (FP) GT SCH (10:31)
[2016-01-31] MEDS: PANTOPRAZOLE SOD 40 MG SUSPENSION PACKET GT SCH (10:32)
[2016-01-31] MEDS: amLODIPine BESYLATE 10 MG TABLET (FP) GT SCH (10:33)
[2016-01-31] MEDS: LACTOBACILLUS ACIDOPHILUS 1 EACH TAB (FP) PO SCH (10:33)
[2016-01-31] MEDS: MULTIVITAMINS THERAPEUTIC GT SCH (10:33)
[2016-01-31] MEDS: IBUPROFEN 100 MG/5 ML UNIT DOSE CUPS PO PRN (15:52)
--- NOTE | 2016-01-31 19:42 | PN ---
Physical Exam: SUBJECTIVE: Patient seen and examined, no change in status, continues to have febrile episodes overnight sputum culture sent growing yeast. OBJECTIVE: Vital Signs - 24 hr 01/30/16 01/30/16 01/31/16 21:00 22:00 02:20 Temperature 101.5 F H 99.8 F H Pulse Rate 108 H Respiratory 22 Rate Blood Pressure 147/75 O2 Sat by Pulse 99 Oximetry (%) 01/31/16 01/31/16 01/31/16 06:00 09:00 10:00 Temperature 101 F H 101.9 F H Pulse Rate 99 H 109 H Respiratory 22 20 20 Rate Blood Pressure 142/68 148/72 O2 Sat by Pulse 98 Oximetry (%) 01/31/16 01/31/16 01/31/16 12:25 15:44 18:00 Temperature 101.7 F H Pulse Rate 91 H 107 H 100 H Respiratory 20 20 Rate Blood Pressure 128/65 143/74 O2 Sat by Pulse 98 Oximetry (%) 01/31/16 18:38 Temperature 100.4 F H Pulse Rate Respiratory Rate Blood Pressure O2 Sat by Pulse Oximetry (%) GENERAL: The patient is with low grade fever,in no acute distress. GCS 3, on trache collar HEENT: NC, AT, PERRL, sclera anicteric, conjunctiva clear. Ears normal, nares patent, Trachea collar in place with secretions. LUNGS: Breath sounds equal, vent dependent. HEART: Regular rate and rhythm, S1, S2 without murmur, rub or gallop. ABDOMEN: Soft, nontender, nondistended, normoactive bowel sounds, no masses. EXTREMITIES: + pulses, warm, no edema. NEUROLOGICAL: GCS 3 SKIN: Decubitus ulcer Laboratory Results - last 24 hr 01/31/16 01/31/16 01/31/16 05:23 10:52 18:13 POC Glucometer 138 202 226 Active Medications Generic Name Dose Route Start Last Admin Trade Name Freq PRN Reason Stop Dose Admin Acetaminophen 650 mg 12/29/15 10:43 01/31/16 05:25 Tylenol Oral Solution - GT 650 mg Q6H PRN Administration FEVER Amino Acids 30 ml 12/29/15 17:30 01/31/16 18:47 Prostat Sugar-Free Packet - PO Not Given BID@0800,1730 KWAKU Amlodipine Besylate 10 mg 12/30/15 10:00 01/31/16 10:33 Norvasc - GT 10 mg DAILY KWAKU Administration Guaifenesin 10 ml 12/29/15 10:43 01/28/16 16:44 Robitussin Dm - PO 10 ml Q6H PRN Administration COUGH Fluconazole 100 mls @ 100 mls/hr 01/31/16 19:39 Diflucan 200 Mg/D5w Premixed Ivpb - IVPB 01/31/16 20:38 ONCE ONE Fluconazole 50 mls @ 50 mls/hr 02/01/16 10:00 Diflucan 100 Mg/D5w Premixed Ivpb - IVPB DAILY KWAKU Ibuprofen 200 mg 12/29/15 10:43 01/31/16 15:52 Motrin Oral Suspension - PO 200 mg Q6H PRN Administration FEVER Insulin Aspart 1 vial 01/28/16 16:30 01/31/16 18:24 Novolog Vial Sliding Scale - SQ 4 units BIDI KWAKU Administration Protocol Insulin Detemir 28 units 12/29/15 22:00 01/30/16 22:35 Levemir Vial SQ 28 units HS KWAKU Administration Lactobacillus Acidophilus 1 tab 12/30/15 10:00 01/31/16 10:33 Bacid - PO 1 tab DAILY KWAKU Administration Lisinopril 40 mg 12/30/15 10:00 01/31/16 10:31 Prinivil - GT 40 mg DAILY KWAKU Administration Metoprolol Tartrate 150 mg 12/29/15 22:00 01/31/16 10:31 Lopressor - GT 150 mg BID KWAKU Administration Metoprolol Tartrate 5 mg 12/29/15 10:43 Lopressor Injection - IVPB Q6H PRN HYPERTENSION Multivitamins 5 ml 12/30/15 10:00 01/31/16 10:33 Thera-Plus - GT 5 ml DAILY KWAKU Administration Pantoprazole Sodium 40 mg 12/30/15 10:00 01/31/16 10:32 Protonix Packets For Oral Suspension - GT 40 mg DAILY KWAKU Administration ASSESSMENT/PLAN: assessment/plan: 75-year-old male sent to the ED for diverticular bleed status post right hemicolectomy, hospital course complicated with CVA and anoxic brain injury patient now vent dependent with trachea collar, with PEG, and iliac artery bleed s/p embolization. Status post recent HCAP treated with vancomycin and Zosyn for 7 days. fever: No source detected, possibly secondary to bilateral lower extremity DVTs. Follow blood cultures. Tylenol/Motrin when necessary for fever. Consider cooling blankets. * Anoxic brain injury, status post CVA-unchanged. Patient now DNR * Vent dependent- continue same settings. Shave immediate area around tracheostomy * Yeast + in sputum from around trach collar- Fluconazole IVPB 200mg given and then 100mg daily. will reconsult ID in AM * HTN- Cont medications * Decubitus ulcers stage 3 on sacral, turn q2h and wound care daily. * DM2- levemir 28 units HS,RISS * Continue tube feed @ 60ml/hr * PT * CODE; DNR * D/w Radha Mata from [facility] ( email: [email or web address]) the possibilty of care in [place] and requesting letter be sent requesting assistance from consulate in locating placement in [facility] in [facility]. Also d/w SW and found estimated cost of transportation for vent patient approximately $35K. SW will try and identify additional family in [place]. Contacting [facility] tomorrow to ID if they are willing to accept patient if transferred. Visit Type - Emergency Visit Emergency Visit: Yes ED Registration Date: 06/27/15 Care time: The patient presented to the Emergency Department on the above date and was hospitalized for further evaluation of their emergent condition. - New Patient This patient is new to me today: No - Critical Care Critical Care patient: No
[2016-01-31] MEDS: INSULIN DETEMIR 100 UNITS/ML MDV SQ SCH (21:18)
[2016-02-01] MEDS: INSULIN SLIDING SCALE (NOVOLOG) 1 VIAL SQ SCH ×2 (06:19→16:47)
[2016-02-01] MEDS: AMINO ACIDS/PROTEIN HYDROLYS SUGAR-FREE 30 ML PACKET PO SCH ×2 (08:00→16:29)
[2016-02-01] MEDS: LISINOPRIL 20 MG TABLET (FP) GT SCH (10:42)
[2016-02-01] MEDS: PANTOPRAZOLE SOD 40 MG SUSPENSION PACKET GT SCH (10:42)
[2016-02-01] MEDS: METOPROLOL TARTRATE 50 MG TABLET (FP) GT SCH ×2 (10:42→21:45)
[2016-02-01] MEDS: MULTIVITAMINS THERAPEUTIC GT SCH (10:42)
[2016-02-01] MEDS: amLODIPine BESYLATE 10 MG TABLET (FP) GT SCH (10:42)
[2016-02-01] MEDS: LACTOBACILLUS ACIDOPHILUS 1 EACH TAB (FP) PO SCH (10:42)
[2016-02-01] MEDS: FLUCONAZOLE 100 MG/D5W 50 ML IVPB SCH (11:28)
--- NOTE | 2016-02-01 12:58 | PN ---
Physical Exam: SUBJECTIVE: Patient seen and examined OBJECTIVE: Vital Signs - 24 hr 01/31/16 01/31/16 01/31/16 15:44 18:00 18:38 Temperature 101.7 F H 100.4 F H Pulse Rate 107 H 100 H Respiratory 20 20 Rate Blood Pressure 128/65 143/74 O2 Sat by Pulse Oximetry (%) 01/31/16 02/01/16 02/01/16 21:00 02:00 06:00 Temperature 97.8 F 98.6 F Pulse Rate 88 98 H Respiratory 20 20 Rate Blood Pressure 145/79 146/78 O2 Sat by Pulse 99 Oximetry (%) 02/01/16 02/01/16 10:00 10:33 Temperature 100.3 F H Pulse Rate 120 H 122 H Respiratory 18 Rate Blood Pressure 141/73 O2 Sat by Pulse 99 Oximetry (%) GENERAL: in no acute distress. HEAD: Normal with no signs of trauma. EYES: PERRL, extraocular movements intact, sclera anicteric, conjunctiva clear. No ptosis. ENT: Trachea with excesive white mucus NECK: Trachea collar. LUNGS: Breath sounds equal, Rhonchi bilaterally, no wheezes, no accessory muscle use. HEART: Regular rate and rhythm, S1, S2 without murmur, rub or gallop. ABDOMEN: Soft, nontender, nondistended, normoactive bowel sounds, no guarding, no rebound, no hepatosplenomegaly, no masses.Peg EXTREMITIES: 2+ pulses, warm, well-perfused, no edema. NEUROLOGICAL: GCS3 SKIN: Warm, dry, normal turgor, no rashes or lesions noted Laboratory Results - last 24 hr 01/31/16 01/31/16 02/01/16 18:13 21:17 06:18 POC Glucometer 226 200 165 Active Medications Generic Name Dose Route Start Last Admin Trade Name Freq PRN Reason Stop Dose Admin Acetaminophen 650 mg 12/29/15 10:43 01/31/16 05:25 Tylenol Oral Solution - GT 650 mg Q6H PRN Administration FEVER Amino Acids 30 ml 12/29/15 17:30 02/01/16 08:00 Prostat Sugar-Free Packet - PO 30 ml BID@0800,1730 KWAKU Administration Amlodipine Besylate 10 mg 12/30/15 10:00 02/01/16 10:42 Norvasc - GT 10 mg DAILY KWAKU Administration Guaifenesin 10 ml 12/29/15 10:43 01/28/16 16:44 Robitussin Dm - PO 10 ml Q6H PRN Administration COUGH Fluconazole 50 mls @ 50 mls/hr 02/01/16 10:00 02/01/16 11:28 Diflucan 100 Mg/D5w Premixed Ivpb - IVPB 50 mls/hr DAILY KWAKU Administration Ibuprofen 200 mg 12/29/15 10:43 01/31/16 15:52 Motrin Oral Suspension - PO 200 mg Q6H PRN Administration FEVER Insulin Aspart 1 vial 01/28/16 16:30 02/01/16 06:19 Novolog Vial Sliding Scale - SQ 2 units BIDI KWAKU Administration Protocol Insulin Detemir 28 units 12/29/15 22:00 01/31/16 21:18 Levemir Vial SQ 28 units HS KWAKU Administration Lactobacillus Acidophilus 1 tab 12/30/15 10:00 02/01/16 10:42 Bacid - PO 1 tab DAILY KWAKU Administration Lisinopril 40 mg 12/30/15 10:00 02/01/16 10:42 Prinivil - GT 40 mg DAILY KWAKU Administration Metoprolol Tartrate 150 mg 12/29/15 22:00 02/01/16 10:42 Lopressor - GT 150 mg BID KWAKU Administration Metoprolol Tartrate 5 mg 12/29/15 10:43 Lopressor Injection - IVPB Q6H PRN HYPERTENSION Multivitamins 5 ml 12/30/15 10:00 02/01/16 10:42 Thera-Plus - GT 5 ml DAILY KWAKU Administration Pantoprazole Sodium 40 mg 12/30/15 10:00 02/01/16 10:42 Protonix Packets For Oral Suspension - GT 40 mg DAILY KWAKU Administration ASSESSMENT/PLAN: Problem List - Problems (1) Anoxic brain damage Assessment/Plan: DNR Code(s): G93.1 - ANOXIC BRAIN DAMAGE, NOT ELSEWHERE CLASSIFIED (2) CVA (cerebral vascular accident) Assessment/Plan: ON vent continue at documented settings Continue to work with SW on placement Continue to reach out to daughter for family members Code(s): I63.9 - CEREBRAL INFARCTION, UNSPECIFIED Qualifiers: CVA mechanism: unspecified Qualified Code(s): I63.9 - Cerebral infarction, unspecified (3) Diabetes Code(s): E11.9 - TYPE 2 DIABETES MELLITUS WITHOUT COMPLICATIONS (4) Fever Assessment/Plan: Follow cultures Continue Antibiotics as documented And follow ID consult Code(s): R50.9 - FEVER, UNSPECIFIED (5) H/O right hemicolectomy Code(s): Z90.49 - ACQUIRED ABSENCE OF OTHER SPECIFIED PARTS OF DIGESTIVE TRACT (6) Hypertension Code(s): I10 - ESSENTIAL (PRIMARY) HYPERTENSION (7) Iliac artery bleed Code(s): R58 - HEMORRHAGE, NOT ELSEWHERE CLASSIFIED (8) Respirator dependent Code(s): Z99.11 - DEPENDENCE ON RESPIRATOR [VENTILATOR] STATUS (9) Sacral decubitus ulcer, stage II Code(s): L89.152 - PRESSURE ULCER OF SACRAL REGION, STAGE 2 Visit Type - Emergency Visit Emergency Visit: Yes ED Registration Date: 06/27/15 Care time: The patient presented to the Emergency Department on the above date and was hospitalized for further evaluation of their emergent condition. - New Patient This patient is new to me today: No - Critical Care Critical Care patient: No
[2016-02-01] MEDS: IBUPROFEN 100 MG/5 ML UNIT DOSE CUPS PO PRN (16:28)
[2016-02-01] MEDS: INSULIN DETEMIR 100 UNITS/ML MDV SQ SCH (21:45)
[2016-02-02] MEDS: INSULIN SLIDING SCALE (NOVOLOG) 1 VIAL SQ SCH ×2 (06:20→17:17)
[2016-02-02] MEDS: LACTOBACILLUS ACIDOPHILUS 1 EACH TAB (FP) PO SCH (11:07)
[2016-02-02] MEDS: FLUCONAZOLE 100 MG/D5W 50 ML IVPB SCH (11:07)
[2016-02-02] MEDS: AMINO ACIDS/PROTEIN HYDROLYS SUGAR-FREE 30 ML PACKET PO SCH ×2 (11:07→17:17)
[2016-02-02] MEDS: MULTIVITAMINS THERAPEUTIC GT SCH (11:08)
[2016-02-02] MEDS: amLODIPine BESYLATE 10 MG TABLET (FP) GT SCH (11:08)
[2016-02-02] MEDS: PANTOPRAZOLE SOD 40 MG SUSPENSION PACKET GT SCH (11:08)
[2016-02-02] MEDS: LISINOPRIL 20 MG TABLET (FP) GT SCH (11:08)
[2016-02-02] MEDS: METOPROLOL TARTRATE 50 MG TABLET (FP) GT SCH ×2 (11:08→21:17)
--- NOTE | 2016-02-02 11:55 | WOUND ---
Wound Assessment [facility] Reason for visit: Wound Assessment Request for consultation: by [facility] Interdisciplinary Wound Care Team Initial Encounter: No Previous Encounter: Yes - History of Present Illness Past Medical History Cardio/Vascular HTN Endocrine Diabetes Mellitus Past Surgical History Past Surgical History Hernia Repair Social History Smoking history Never smoked Have you smoked in the past 12 No months Hx Alcohol Use No Current Medications Generic Name Dose Route Start Last Admin Trade Name Freq PRN Reason Stop Dose Admin Acetaminophen 650 mg 12/29/15 10:43 01/31/16 05:25 Tylenol Oral Solution - GT 650 mg Q6H PRN Administration FEVER Amino Acids 30 ml 12/29/15 17:30 02/02/16 11:07 Prostat Sugar-Free Packet - PO 30 ml BID@0800,1730 KWAKU Administration Amlodipine Besylate 10 mg 12/30/15 10:00 02/02/16 11:08 Norvasc - GT 10 mg DAILY KWAKU Administration Guaifenesin 10 ml 12/29/15 10:43 01/28/16 16:44 Robitussin Dm - PO 10 ml Q6H PRN Administration COUGH Fluconazole 50 mls @ 50 mls/hr 02/01/16 10:00 02/02/16 11:07 Diflucan 100 Mg/D5w Premixed Ivpb - IVPB 50 mls/hr DAILY KWAKU Administration Ibuprofen 200 mg 12/29/15 10:43 02/01/16 16:28 Motrin Oral Suspension - PO 200 mg Q6H PRN Administration FEVER Insulin Aspart 1 vial 01/28/16 16:30 02/02/16 06:20 Novolog Vial Sliding Scale - SQ 4 units BIDI KWAKU Administration Protocol Insulin Detemir 28 units 12/29/15 22:00 02/01/16 21:45 Levemir Vial SQ 28 units HS KWAKU Administration Lactobacillus Acidophilus 1 tab 12/30/15 10:00 02/02/16 11:07 Bacid - PO 1 tab DAILY KWAKU Administration Lisinopril 40 mg 12/30/15 10:00 02/02/16 11:08 Prinivil - GT 40 mg DAILY KWAKU Administration Metoprolol Tartrate 150 mg 12/29/15 22:00 02/02/16 11:08 Lopressor - GT 150 mg BID KWAKU Administration Metoprolol Tartrate 5 mg 12/29/15 10:43 Lopressor Injection - IVPB Q6H PRN HYPERTENSION Multivitamins 5 ml 12/30/15 10:00 02/02/16 11:08 Thera-Plus - GT 5 ml DAILY KWAKU Administration Pantoprazole Sodium 40 mg 12/30/15 10:00 02/02/16 11:08 Protonix Packets For Oral Suspension - GT 40 mg DAILY KWAKU Administration Allergies Allergy/AdvReac Type Severity Reaction Status Date / Time No Known Allergies Allergy Verified 06/26/15 21:31 Physical Exam - Objective Last Vital Signs Temp Pulse Resp BP Pulse Ox 99.6 F 105 H 20 150/85 99 02/02/16 05:55 02/02/16 09:25 02/02/16 09:25 02/02/16 09:25 02/01/16 21:00 Laboratory Last Values WBC 8.3 K/mm3 (4.0-10.0) 01/18/16 08:00 Corrected WBC (auto) Cancelled 06/26/15 21:50 RBC 3.66 M/mm3 (4.00-5.60) L 01/18/16 08:00 Hgb 10.6 GM/dL (11.7-16.9) L 01/18/16 08:00 Hct 31.6 % (35.4-49) L 01/18/16 08:00 MCV 86.1 fl (80-96) 01/18/16 08:00 MCHC 33.5 g/dl (32.0-35.9) 01/18/16 08:00 RDW 15.4 % (11.9-15.9) 01/18/16 08:00 Plt Count 247 K/MM3 (134-434) 01/18/16 08:00 MPV 8.2 fl (7.5-11.1) 01/18/16 08:00 Add Manual Diff Cancelled 06/26/15 21:50 Neutrophils % 64.4 % (42.8-82.8) 01/18/16 08:00 Lymphocytes % 23.2 % (8-40) 01/18/16 08:00 Monocytes % 6.0 % (3.8-10.2) 01/18/16 08:00 Eosinophils % 5.7 % (0-4.5) H 01/18/16 08:00 Basophils % 0.7 % (0-2.0) 01/18/16 08:00 Band Neutrophils 6.0 % (0-10) 06/28/15 09:35 Differential Comment Slide scanned 09/16/15 07:20 Smudge Cells Cancelled 06/26/15 21:50 Platelet Estimate Adequate (NORMAL) 09/16/15 07:20 Platelet Comment No clumping noted 09/16/15 07:20 Platelet Comment No clotting detected 09/16/15 07:20 Normal RBC Morphology Cancelled 06/26/15 21:50 RBC Morphology Cancelled 06/26/15 21:50 ESR 66 mm/hr (0-20) H 09/03/15 07:30 INR 1.29 (0.80-1.00) H 12/26/15 08:45 PTT (Actin FS) 28.9 SECONDS (23.5-38.3) 09/03/15 19:20 Anticoagulation Therapy Y 07/11/15 07:07 Puncture Site Right radial 07/11/15 07:07 ABG pH 7.44 (7.35-7.45) 07/11/15 07:07 ABG pCO2 at Pt Temp 42.1 mmHg (35-45) 07/11/15 07:07 ABG pO2 at Pt Temp 113.0 mmHg (70-100) H D 07/11/15 07:07 ABG HCO3 27.8 meq/L (22-26) H 07/11/15 07:07 ABG O2 Sat (Measured) 99.1 % (90-98.9) H 07/11/15 07:07 ABG O2 Content 13.3 % vol (15-22) L 07/11/15 07:07 ABG Base Excess 3.8 meq/l (-2-2) H 07/11/15 07:07 Izaiah Test Positive 07/11/15 07:07 O2 Delivery Device Ventilator 07/11/15 07:07 Oxygen Flow Rate 30% 07/11/15 07:07 Vent Mode A/c 07/11/15 07:07 Vent Rate 10 07/11/15 07:07 Mechanical Rate Yes 07/11/15 07:07 PEEP 5.0 cmH2O 07/11/15 07:07 Pressure Support Vent 500 07/11/15 07:07 Sodium 142 mmol/L (136-145) 01/24/16 06:50 Potassium 3.6 mmol/L (3.5-5.1) 01/24/16 06:50 Chloride 102 mmol/L (98-107) 01/24/16 06:50 Carbon Dioxide 30 mmol/L (21-32) 01/24/16 06:50 Anion Gap 10 (8-16) 01/24/16 06:50 BUN 24 mg/dL (7-18) H 01/24/16 06:50 Creatinine 0.8 mg/dL (0.7-1.3) 01/24/16 06:50 Creat Clearance w eGFR > 60 (>60) 01/18/16 08:00 POC Glucometer 225 UNITS (()) 02/02/16 06:04 Random Glucose 149 mg/dL (74-106) H 01/24/16 06:50 Lactic Acid 1.217 mmol/L (0.4-2.0) 12/25/15 12:45 Calcium 10.0 mg/dL (8.5-10.1) 01/24/16 06:50 Phosphorus 3.6 mg/dL (2.5-4.9) 11/23/15 06:45 Magnesium 2.0 mg/dL (1.8-2.4) 12/20/15 06:50 Total Bilirubin 0.2 mg/dL (0.2-1.0) D 01/18/16 08:00 AST 14 U/L (15-37) L 01/18/16 08:00 ALT 22 U/L (12-78) 01/18/16 08:00 Alkaline Phosphatase 93 U/L (45-117) 01/18/16 08:00 Creatine Kinase 62 IU/L (38-174) 06/28/15 09:35 Creatine Kinase Index 0.7 % (0.0-5.0) 06/26/15 21:50 CK-MB (CK-2) 1.077 ng/ml (0.3-4.0) 06/26/15 21:50 CK-MB (CK-2) Rel Index Cancelled 06/26/15 21:50 Troponin I 0.07 ng/ml (0.03-0.5) D 07/09/15 05:00 C-Reactive Protein 2.1 MG/DL (0.00-0.3) H 09/03/15 07:30 Total Protein 7.6 g/dl (6.4-8.2) 01/18/16 08:00 Albumin 3.3 g/dl (3.4-5.0) L 01/18/16 08:00 Triglycerides 143 mg/dL (35-160) D 09/02/15 06:30 Cholesterol 106 mg/dL (50-200) D 09/02/15 06:30 Total LDL Cholesterol 66 mg/dL 09/02/15 06:30 HDL Cholesterol 26 mg/dL (40-60) L D 09/02/15 06:30 Lipase 140 U/L (73-293) 06/26/15 21:50 Prolactin 19.8 ng/ml (4.0-15.2) H 07/02/15 05:20 Urine Color Yellow 01/29/16 14:44 Urine Appearance Clear 01/29/16 14:44 Urine pH 6.0 (4.5-8) 01/29/16 14:44 Ur Specific [place] 1.018 (1.005-1.025) 01/29/16 14:44 Urine Protein 2+ (NEGATIVE) H 01/29/16 14:44 Urine Glucose (UA) Negative (NEGATIVE) 01/29/16 14:44 Urine Ketones Negative (NEGATIVE) 01/29/16 14:44 Urine Blood 2 (NEGATIVE) H 01/29/16 14:44 Urine Nitrite Negative (NEGATIVE) 01/29/16 14:44 Urine Bilirubin Negative (NEGATIVE) 01/29/16 14:44 Urine Ictotest Negative (NEGATIVE) 01/29/16 14:44 Urine Urobilinogen Normal (0.2-1.0) 01/29/16 14:44 Ur Leukocyte Esterase 3+ (NEGATIVE) H 01/29/16 14:44 Urine RBC 20 /hpf (0-3) 01/29/16 14:44 Urine WBC 176 (3-5) 01/29/16 14:44 Ur Epithelial Cells Few /HPF 01/29/16 14:44 Calcium Oxalate Crystal Few /hpf (NONE SEEN) 01/29/16 14:44 Urine Bacteria Many /hpf (NEGATIVE) 01/29/16 14:44 Hyaline Casts 3 /lpf 01/29/16 14:44 Granular Casts 0 /lpf 01/29/16 14:44 Urine Mucus Rare 07/27/15 15:55 Urine Yeast Few 01/29/16 14:44 Stool Occult Blood Negative (NEGATIVE) 07/02/15 12:00 Vancomycin Trough 20.819 ug/ml (5.0-10.0) H* 12/01/15 04:30 Hepatitis C Ab (EIA) <0.1 s/co ratio (0.0-0.9) 07/03/15 05:15 Blood Type O POSITIVE 09/03/15 18:48 Antibody Screen Negative 09/03/15 18:48 Crossmatch See Detail 09/03/15 19:20 Crossmatch IS Only See Detail 06/26/15 21:50 Spec Expiration Date 06/26/15 21:50 Wounds - Wound Wound #1 Type of wound: Yes: Pressure ulcer Stage: III (Healing nicely) Location/laterality: left buttock Wound size: 2.0cmL x 0.5cm W x 0.2cm D Thickness: Partial Undermining: No Tunneling: No Drainage/exudate: No Wound bed tissue: Yes: Erythematous Wound edges color: Other (White fibrous) Wound edges raised: Yes Wound edges rolled: No Wound edges contracted: No Pain: No Surrounding tissue to 4cm: Yes: Healthy Wound #2 Type of wound: Yes: Pressure ulcer Stage: III (Healing nicely) Location/laterality: right buttock Wound size: 0.5cmL x 0.3cmW x 0.1cmD Thickness: Surface Undermining: No Tunneling: No Drainage/exudate: No Wound bed tissue: Yes: Erythematous Wound edges color: Erythematous Wound edges raised: No Wound edges rolled: No Wound edges contracted: No Pain: No Surrounding tissue to 4cm: Yes: Healthy Assessment/Plan Wound #1 Diagnosis: Pressure ulcer Wound specific intervention: Allevyn dressing only. Wound #2 Diagnosis: Pressure ulcer Wound specific intervention: Allevyn dressing only. Impediments to healing: Limited mobility, Unable to self-position in bed, Hypoalbunemia, Nutritional deficiencies, Incontinence of urine, Incontinence of bowel, Other (Trach, PEG, ) Nutrition/Dietary supplements/vitamins: Continue current TF Vital at 60 ml/hr and Prostat SF BID, pump water flushes of 50 ml/hr. Last weighed 3, placed order for weekly weights to be done. Support Surface: [employer] Sport Bed HOB elevation: 30 degrees Off-loading: Turning/repositioning q2h, Elevate heels off bed with pillows Incontinence management: Avoid diapers; if must be used, do not secure around patient 08/02/15 19:00 Urine - Urine Schwartz Urine Culture - Final NO GROWTH OBTAINED 08/02/15 22:55 Stool Clostridium difficile Antigen (MACHO) - Final 08/02/15 22:55 Stool Clostridium difficile Toxin Assay - Final 07/27/15 19:00 Blood - Peripheral Venous Blood Culture - Final NO GROWTH AFTER 5 DAYS INCUBATION 07/27/15 19:00 Blood - Peripheral Venous Blood Culture - Final NO GROWTH AFTER 5 DAYS INCUBATION 07/27/15 19:30 Stool Clostridium difficile (PCR) - Final 07/27/15 15:55 Urine - Urine Schwartz Urine Culture - Final NO GROWTH OBTAINED 07/15/15 11:30 Blood - Peripheral Venous Blood Culture - Final NO GROWTH AFTER 5 DAYS INCUBATION 07/15/15 11:30 Blood - Peripheral Venous Blood Culture - Final NO GROWTH AFTER 5 DAYS INCUBATION 07/10/15 10:30 Stool Stool Culture - Final NO SALMONELLA, SHIGELLA, YERSINIA, CAMPYLOBACTER OR E COLI 0157 ISOLATED 07/10/15 10:35 Stool Clostridium difficile Antigen (MACHO) - Final 07/10/15 10:35 Stool Clostridium difficile Toxin Assay - Final 07/10/15 10:30 Stool Gram Stain - Final 07/02/15 18:00 Blood - Peripheral Venous Blood Culture - Final NO GROWTH AFTER 5 DAYS INCUBATION 07/02/15 18:00 Blood - Peripheral Venous Blood Culture - Final NO GROWTH AFTER 5 DAYS INCUBATION 06/28/15 09:32 Blood - Peripheral Venous Blood Culture - Final NO GROWTH AFTER 5 DAYS INCUBATION 06/28/15 09:32 Blood - Peripheral Venous Blood Culture - Final NO GROWTH AFTER 5 DAYS INCUBATION 06/28/15 17:30 Sputum - Endotrachea Suction/Ventilator Gram Stain - Final 06/28/15 17:30 Sputum - Endotrachea Suction/Ventilator Sputum Culture - Final NORMAL RESPIRATORY ARMAND 06/27/15 20:30 Urine - Urine Schwartz Urine Culture - Final NO GROWTH OBTAINED 06/28/15 10:00 Urine For Antigen Detection Legionella Antigen - Final 06/28/15 10:00 Urine For Antigen Detection Streptococcus pneumoniae Antigen (M - Final Wounds - Wound Wound #1 Type of wound: Yes: Pressure ulcer Assessment/Plan Wound #1 Diagnosis: Pressure ulcer Wound #2 Diagnosis: Pressure ulcer
[2016-02-02 12:49] LABS: BASOPHIL 0.6 % (0-2.0); EOSINOPHIL 4.4 % (0-4.5); MCH 28.5 pg (25.7-33.7); MCHC 32.9 g/dl (32.0-35.9); MEAN CELL VOLUME 86.6 fl (80-96); MEAN PLT VOLUME 8.2 fl (7.5-11.1); NEUTROPHILS 76.2 % (42.8-82.8); PLATELET COUNT 251 K/MM3 (134-434); RDW 15.1 % (11.9-15.9); WHITE BLOOD COUNT 13.4 K/mm3 (4.0-10.0)
--- NOTE | 2016-02-02 13:53 | PN ---
Progress Note (short form) - Note Progress Note: Hospital day #220 asked to see for fevers He has had intermittent fever since 01/26 started on fluconazole 4/5 resting comfortably patient is nonverbal he opens his eyes, has some spontaneous movements of his arms does not follow commands no diarrhae no increase in tracheal secretions looks very comfortable in no distress yawning alert Vital Signs Period Temp Pulse Resp BP Sys/Santiago Pulse Ox Last 24 Hr 98.0 F-101.1 F 93-105 16-20 140-152/65-85 99 trach site no erythema cor-rrr lungs decreased bs at bases abd soft,nt +GT site clean ext no edema sacral ulcer stage 2 - 2 small ulcers- no drainage, shallow, no erythema or purulence CBC, BMP 02/02/16 12:40 01/24/16 06:50 Microbiology 01/29/16 11:05 Blood Culture - Preliminary Blood - Peripheral Venous NO GROWTH OBTAINED AFTER 96 HOURS, INCUBATION TO CONTINUE FOR 1 DAYS. 01/29/16 11:05 Blood Culture - Preliminary Blood - Peripheral Venous NO GROWTH OBTAINED AFTER 96 HOURS, INCUBATION TO CONTINUE FOR 1 DAYS. 01/30/16 08:00 Gram Stain - Final Sputum - Endotracheal Suction W/O Vent Sputum Culture - Final Acinetobacter Baumannii/Haemol cxray with bibasilar atelectasis a/p FUO- doubt pneumonia fevers seem to be trending down doubt resistant gram negative pneumonia with acinetobacter-he looks too well check esr in am if persists would consider ct scan c/a/p and duplex of legs for now would observe off antibiotics can d/c diflucan repeat labs in am strict contact isolation for the acinetobacter- reviewed with nursing staff d/w Dr Arthur- we will repeat duplex of legs and f/u labs observe off antibiotics
--- NOTE | 2016-02-02 18:44 | PN ---
Progress Note (short form) - Note Progress Note: Subjective: unable to obtain hx. cont to have fever Objective: Last Vital Signs Temp Pulse Resp BP Pulse Ox 99.9 F H 96 H 18 146/81 99 02/02/16 14:00 02/02/16 14:00 02/02/16 14:00 02/02/16 14:00 02/01/16 21:00 Physical Exam: NAD .awake , clear secretions from trach CV: RRR, no MRG lungs: course breath sounds b/l anteriorly ext: no edema on legs. abd: soft, NT, ND , nl BS. PEG in place with intact skin . Laboratory Results - last 24 hr 02/01/16 02/02/16 02/02/16 21:40 06:04 12:40 WBC 13.4 H D RBC 3.58 L Hgb 10.2 L Hct 31.0 L MCV 86.6 MCHC 32.9 RDW 15.1 Plt Count 251 MPV 8.2 Neutrophils % 76.2 Lymphocytes % 12.4 D Monocytes % 6.4 Eosinophils % 4.4 Basophils % 0.6 POC Glucometer 223 225 02/02/16 17:15 WBC RBC Hgb Hct MCV MCHC RDW Plt Count MPV Neutrophils % Lymphocytes % Monocytes % Eosinophils % Basophils % POC Glucometer 173 Microbiology 01/29/16 11:05 Blood Culture - Preliminary Blood - Peripheral Venous NO GROWTH OBTAINED AFTER 96 HOURS, INCUBATION TO CONTINUE FOR 1 DAYS. 01/29/16 11:05 Blood Culture - Preliminary Blood - Peripheral Venous NO GROWTH OBTAINED AFTER 96 HOURS, INCUBATION TO CONTINUE FOR 1 DAYS. 01/30/16 08:00 Gram Stain - Final Sputum - Endotracheal Suction W/O Vent Sputum Culture - Final Acinetobacter Baumannii/Haemol Assessment/Plan: 75 yo M with PMH HTN, DM, inguinal hernia a/w BRBPR and melena with multiple syncopal episodes. Dx with persistent diverticular bleed with R hemicolectomy, course complicated with CVA now in the ICU unresponsive and anoxic brain injury had tracheostomy on 07/23. also s/p PEG placement and iliac artery bleed s /p embolization 09/03/15. received a course of ABx for HCAp in Oct/nov 1-fever : no clear infectious source . blood cx , neg . cxrayon 01/28 neg . - repeat cxray - CBC with mild leukocytosis . will repeat in am - US to r/o new DVT or extension of old DVT - no need to treat acinetobacter. d/w Dr. 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 no further bleed 4- Anoxic brain injury and CVA, s/p Trach 07/23. s/p PEG 5- HTN: cont meds . 6- DM: cont insulin . 7- nutrition through PEG : at goal 60 cc/hr. cont free water rate at 50 cc /hr DNR
[2016-02-02] MEDS: INSULIN DETEMIR 100 UNITS/ML MDV SQ SCH (21:17)
[2016-02-03] MEDS: INSULIN SLIDING SCALE (NOVOLOG) 1 VIAL SQ SCH ×2 (06:12→17:19)
[2016-02-03] MEDS: AMINO ACIDS/PROTEIN HYDROLYS SUGAR-FREE 30 ML PACKET PO SCH ×2 (07:55→17:20)
[2016-02-03 08:31] LABS: BASOPHIL 1.2 % (0-2.0); EOSINOPHIL 3.8 % (0-4.5); MCH 28.7 pg (25.7-33.7); MCHC 33.1 g/dl (32.0-35.9); MEAN CELL VOLUME 86.7 fl (80-96); NEUTROPHILS 72.2 % (42.8-82.8); PLATELET COUNT 270 K/MM3 (134-434); RDW 14.8 % (11.9-15.9); WHITE BLOOD COUNT 12.9 K/mm3 (4.0-10.0)
[2016-02-03 09:17] LABS: ALK PHOS 121 U/L (45-117); ANION GAP 11 (8-16); BILIRUBIN,TOTAL 0.3 mg/dL (0.2-1.0); CALCIUM 9.3 mg/dL (8.5-10.1); CO2 28 mmol/L (21-32); CREATININE 0.7 mg/dL (0.7-1.3); GLUCOSE,RANDOM 189 mg/dL (74-106); SGOT/AST 12 U/L (15-37); SGPT/ALT 24 U/L (12-78); TOT PROT 7.6 g/dl (6.4-8.2)
[2016-02-03] MEDS: METOPROLOL TARTRATE 50 MG TABLET (FP) GT SCH ×2 (10:19→22:23)
[2016-02-03] MEDS: LACTOBACILLUS ACIDOPHILUS 1 EACH TAB (FP) PO SCH (10:19)
[2016-02-03] MEDS: PANTOPRAZOLE SOD 40 MG SUSPENSION PACKET GT SCH (10:20)
[2016-02-03] MEDS: amLODIPine BESYLATE 10 MG TABLET (FP) GT SCH (10:20)
[2016-02-03] MEDS: MULTIVITAMINS THERAPEUTIC GT SCH (10:20)
[2016-02-03] MEDS: ACETAMINOPHEN 650 MG/20.3 ML ORAL SOLUTION (CUPS) GT PRN (10:20)
[2016-02-03] MEDS: LISINOPRIL 20 MG TABLET (FP) GT SCH (10:20)
[2016-02-03] MEDS: guaiFENesin/D-METHORPHAN HB 10 ML UNIT-DOSE CUPS PO PRN (10:21)
[2016-02-03] MEDS: IBUPROFEN 100 MG/5 ML UNIT DOSE CUPS PO PRN (15:10)
--- NOTE | 2016-02-03 17:59 | PN ---
Progress Note (short form) - Note Progress Note: awake eyes open doesnot follow commands NAD Vital Signs Period Temp Pulse Resp BP Sys/Santiago Pulse Ox Last 24 Hr 98.2 F-100.6 F 88-107 18-20 133-176/81-92 96-98 cor-rrr lungs clear abd soft,nt ext no edema nonocclusiv thrombus left common femoral vein cxray-unchanged CBC, BMP 02/03/16 06:25 02/03/16 06:25 Microbiology 01/29/16 11:05 Blood Culture - Final Blood - Peripheral Venous NO GROWTH AFTER 5 DAYS INCUBATION 01/29/16 11:05 Blood Culture - Final Blood - Peripheral Venous NO GROWTH AFTER 5 DAYS INCUBATION a/p FUO- low grade temps leukocytosis unchanged observe off antibiotics colonization with resistant acinteobacter noted strict contact isolation
--- NOTE | 2016-02-03 19:17 | PN ---
Progress Note (short form) - Note Progress Note: Subjective: unable to obtain hx. Objective: Last Vital Signs Temp Pulse Resp BP Pulse Ox 98.5 F 93 H 22 127/81 98 02/03/16 16:50 02/03/16 16:50 02/03/16 16:50 02/03/16 16:50 02/03/16 09:55 Physical Exam: NAD .awake , clear secretions from trach CV: RRR, no MRG lungs: course breath sounds b/l anteriorly ext: no edema on legs. abd: soft, NT, ND , nl BS. PEG in place with intact skin . Laboratory Results - last 24 hr 02/02/16 02/03/16 02/03/16 21:16 05:59 06:25 WBC 12.9 H RBC 3.19 L Hgb 9.2 L Hct 27.7 L MCV 86.7 MCHC 33.1 RDW 14.8 Plt Count 270 MPV 9.0 Neutrophils % 72.2 Lymphocytes % 16.8 D Monocytes % 6.0 Eosinophils % 3.8 Basophils % 1.2 ESR Sodium Potassium Chloride Carbon Dioxide Anion Gap BUN Creatinine Creat Clearance w eGFR POC Glucometer 231 198 Random Glucose Calcium Total Bilirubin AST ALT Alkaline Phosphatase Total Protein Albumin 02/03/16 02/03/16 02/03/16 06:25 06:25 17:09 WBC RBC Hgb Hct MCV MCHC RDW Plt Count MPV Neutrophils % Lymphocytes % Monocytes % Eosinophils % Basophils % ESR 100 H Sodium 138 Potassium 3.8 Chloride 99 Carbon Dioxide 28 Anion Gap 11 BUN 16 D Creatinine 0.7 Creat Clearance w eGFR > 60 POC Glucometer 185 Random Glucose 189 H D Calcium 9.3 Total Bilirubin 0.3 D AST 12 L ALT 24 Alkaline Phosphatase 121 H D Total Protein 7.6 Albumin 3.0 L Current Medications Generic Name Dose Route Start Last Admin Trade Name Freq PRN Reason Stop Dose Admin Acetaminophen 650 mg 12/29/15 10:43 01/31/16 05:25 Tylenol Oral Solution - GT 650 mg Q6H PRN Administration FEVER Albuterol/Ipratropium 1 amp 02/02/16 18:45 Duoneb - NEB Q4H PRN SHORTNESS OF BREATH Amino Acids 30 ml 12/29/15 17:30 02/03/16 17:20 Prostat Sugar-Free Packet - PO 30 ml BID@0800,1730 KWAKU Administration Amlodipine Besylate 10 mg 12/30/15 10:00 02/03/16 10:20 Norvasc - GT 10 mg DAILY KWAKU Administration Guaifenesin 10 ml 12/29/15 10:43 02/03/16 10:21 Robitussin Dm - PO 10 ml Q6H PRN Administration COUGH Ibuprofen 200 mg 12/29/15 10:43 02/03/16 15:10 Motrin Oral Suspension - PO 200 mg Q6H PRN Administration FEVER Insulin Aspart 1 vial 01/28/16 16:30 02/03/16 17:19 Novolog Vial Sliding Scale - SQ 2 units BIDI KWAKU Administration Protocol Insulin Detemir 28 units 12/29/15 22:00 02/02/16 21:17 Levemir Vial SQ 28 units HS KWAKU Administration Lactobacillus Acidophilus 1 tab 12/30/15 10:00 02/03/16 10:19 Bacid - PO 1 tab DAILY KWAKU Administration Lisinopril 40 mg 12/30/15 10:00 02/03/16 10:20 Prinivil - GT 40 mg DAILY KWAKU Administration Metoprolol Tartrate 150 mg 12/29/15 22:00 02/03/16 10:19 Lopressor - GT 150 mg BID KWAKU Administration Metoprolol Tartrate 5 mg 12/29/15 10:43 Lopressor Injection - IVPB Q6H PRN HYPERTENSION Multivitamins 5 ml 12/30/15 10:00 02/03/16 10:20 Thera-Plus - GT 5 ml DAILY KWAKU Administration Pantoprazole Sodium 40 mg 12/30/15 10:00 02/03/16 10:20 Protonix Packets For Oral Suspension - GT 40 mg DAILY KWAKU Administration Assessment/Plan: 75 yo M with PMH HTN, DM, inguinal hernia a/w BRBPR and melena with multiple syncopal episodes. Dx with persistent diverticular bleed with R hemicolectomy, course complicated with CVA now in the ICU unresponsive and anoxic brain injury had tracheostomy on 07/23. also s/p PEG placement and iliac artery bleed s /p embolization 09/03/15. received a course of ABx for HCAp in Oct/nov 1-fever : no clear infectious source . fever could be due to the new thrombus noted in L greater [place] . ( old US showed L femoral , and superficial thrombosis in R lesser saphenous ) - monitor leukocytosis - no need to treat acinetobacter as it is colonization . - cxray with more congestion , will decrease rate of free water with TF 2- DVTs : s/p IVC filter 3- acute GI bleed, s/p colonoscopy and R hemicolectomy. no further bleed 4- Anoxic brain injury and CVA, s/p Trach 07/23. s/p PEG 5- HTN: cont meds . 6- DM: cont insulin . 7- nutrition through PEG : at goal 60 cc/hr. decrease free water rate at to 40 cc /hr DNR
[2016-02-03] MEDS: INSULIN DETEMIR 100 UNITS/ML MDV SQ SCH (22:37)
[2016-02-04] MEDS: INSULIN SLIDING SCALE (NOVOLOG) 1 VIAL SQ SCH ×2 (06:22→17:58)
[2016-02-04 08:08] LABS: BASOPHIL 0.3 % (0-2.0); EOSINOPHIL 4.6 % (0-4.5); MCH 29.3 pg (25.7-33.7); MCHC 34.1 g/dl (32.0-35.9); MEAN CELL VOLUME 86.1 fl (80-96); MEAN PLT VOLUME 8.4 fl (7.5-11.1); NEUTROPHILS 72.6 % (42.8-82.8); PLATELET COUNT 287 K/MM3 (134-434); RDW 14.8 % (11.9-15.9); WHITE BLOOD COUNT 10.8 K/mm3 (4.0-10.0)
[2016-02-04] MEDS: AMINO ACIDS/PROTEIN HYDROLYS SUGAR-FREE 30 ML PACKET PO SCH ×2 (10:27→17:59)
[2016-02-04] MEDS: amLODIPine BESYLATE 10 MG TABLET (FP) GT SCH (10:29)
[2016-02-04] MEDS: METOPROLOL TARTRATE 50 MG TABLET (FP) GT SCH ×2 (10:29→21:59)
[2016-02-04] MEDS: LACTOBACILLUS ACIDOPHILUS 1 EACH TAB (FP) PO SCH (10:29)
[2016-02-04] MEDS: LISINOPRIL 20 MG TABLET (FP) GT SCH (10:29)
[2016-02-04] MEDS: MULTIVITAMINS THERAPEUTIC GT SCH (10:30)
[2016-02-04] MEDS: PANTOPRAZOLE SOD 40 MG SUSPENSION PACKET GT SCH (10:30)
--- NOTE | 2016-02-04 18:53 | PN ---
Progress Note (short form) - Note Progress Note: Subjective: unable to obtain hx. Objective: Last Vital Signs Temp Pulse Resp BP Pulse Ox 99.1 F 93 H 20 138/78 98 02/04/16 16:45 02/04/16 16:45 02/04/16 16:45 02/04/16 16:45 02/04/16 14:30 Physical Exam: NAD. awake, clear secretions from trach CV: RRR, no MRG lungs: course breath sounds b/l anteriorly ext: no edema on legs. abd: soft, NT, ND , nl BS. PEG in place with intact skin . Laboratory Results - last 24 hr 02/03/16 02/04/16 02/04/16 22:22 06:14 07:00 WBC 10.8 H RBC 3.40 L Hgb 10.0 L Hct 29.2 L MCV 86.1 MCHC 34.1 RDW 14.8 Plt Count 287 MPV 8.4 Neutrophils % 72.6 Lymphocytes % 17.3 Monocytes % 5.2 Eosinophils % 4.6 H Basophils % 0.3 POC Glucometer 204 201 02/04/16 17:18 WBC RBC Hgb Hct MCV MCHC RDW Plt Count MPV Neutrophils % Lymphocytes % Monocytes % Eosinophils % Basophils % POC Glucometer 198 Assessment/Plan: 75 yo M with PMH HTN, DM, inguinal hernia a/w BRBPR and melena with multiple syncopal episodes. Dx with persistent diverticular bleed with R hemicolectomy, course complicated with CVA now in the ICU unresponsive and anoxic brain injury had tracheostomy on 07/23. also s/p PEG placement and iliac artery bleed s /p embolization 09/03/15. received a course of ABx for HCAp in Oct/nov 1-fever : no clear infectious source . fever could be due to the new thrombus noted in L [place] - leukocytosis improved - no need to treat acinetobacter as it is colonization . 2- DVTs : s/p IVC filter 3- acute GI bleed, s/p colonoscopy and R hemicolectomy. no further bleed 4- Anoxic brain injury and CVA, s/p Trach 07/23. s/p PEG 5- HTN: cont meds . 6- DM: cont insulin . 7- nutrition through PEG : at goal 60 cc/hr. decrease free water rate at to 40 cc /hr DNR
[2016-02-04] MEDS: INSULIN DETEMIR 100 UNITS/ML MDV SQ SCH (22:00)
[2016-02-05] MEDS: INSULIN SLIDING SCALE (NOVOLOG) 1 VIAL SQ SCH ×2 (06:05→17:25)
[2016-02-05] MEDS: AMINO ACIDS/PROTEIN HYDROLYS SUGAR-FREE 30 ML PACKET PO SCH ×2 (08:00→17:24)
[2016-02-05 09:17] LABS: BASOPHIL 1.4 % (0-2.0); EOSINOPHIL 3.2 % (0-4.5); MCH 28.6 pg (25.7-33.7); MCHC 33.1 g/dl (32.0-35.9); MEAN CELL VOLUME 86.5 fl (80-96); MEAN PLT VOLUME 8.4 fl (7.5-11.1); NEUTROPHILS 73.1 % (42.8-82.8); PLATELET COUNT 305 K/MM3 (134-434); RDW 14.8 % (11.9-15.9); WHITE BLOOD COUNT 12.5 K/mm3 (4.0-10.0)
[2016-02-05] MEDS: LISINOPRIL 20 MG TABLET (FP) GT SCH (10:41)
[2016-02-05] MEDS: LACTOBACILLUS ACIDOPHILUS 1 EACH TAB (FP) PO SCH (10:41)
[2016-02-05] MEDS: METOPROLOL TARTRATE 50 MG TABLET (FP) GT SCH ×2 (10:41→22:11)
[2016-02-05] MEDS: amLODIPine BESYLATE 10 MG TABLET (FP) GT SCH (10:42)
[2016-02-05] MEDS: PANTOPRAZOLE SOD 40 MG SUSPENSION PACKET GT SCH (10:42)
[2016-02-05] MEDS: MULTIVITAMINS THERAPEUTIC GT SCH (10:42)
--- NOTE | 2016-02-05 17:21 | PN ---
Progress Note (short form) - Note Progress Note: Subjective: unable to obtain hx. Objective: Last Vital Signs Temp Pulse Resp BP Pulse Ox 98.0 F 91 H 20 141/85 99 02/05/16 14:39 02/05/16 14:39 02/05/16 14:39 02/05/16 14:39 02/05/16 10:25 Physical Exam: NAD. sleeping CV: RRR, no MRG lungs: clear chest today ext: no edema on legs. abd: soft, NT, ND , nl BS. PEG in place with intact skin . Laboratory Results - last 24 hr 02/04/16 02/04/16 02/05/16 17:18 21:56 06:02 WBC RBC Hgb Hct MCV MCHC RDW Plt Count MPV Neutrophils % Lymphocytes % Monocytes % Eosinophils % Basophils % POC Glucometer 198 194 232 02/05/16 07:30 WBC 12.5 H RBC 3.50 L Hgb 10.0 L Hct 30.3 L MCV 86.5 MCHC 33.1 RDW 14.8 Plt Count 305 MPV 8.4 Neutrophils % 73.1 Lymphocytes % 17.6 Monocytes % 4.7 Eosinophils % 3.2 Basophils % 1.4 D POC Glucometer Assessment/Plan: 75 yo M with PMH HTN, DM, inguinal hernia a/w BRBPR and melena with multiple syncopal episodes. Dx with persistent diverticular bleed with R hemicolectomy, course complicated with CVA now in the ICU unresponsive and anoxic brain injury had tracheostomy on 07/23. also s/p PEG placement and iliac artery bleed s /p embolization 09/03/15. received a course of ABx for HCAp in Oct/nov 1-fever : no clear infectious source . fever could be due to the new thrombus noted in L [place] - leukocytosis worse today . will repeat - no need to treat acinetobacter as it is likely colonization . 2- DVTs : s/p IVC filter 3- acute GI bleed, s/p colonoscopy and R hemicolectomy. no further bleed 4- Anoxic brain injury and CVA, s/p Trach 07/23. s/p PEG 5- HTN: cont meds . 6- DM: cont insulin . 7- nutrition through PEG : at goal 60 cc/hr. free water rate at 40 cc /hr ( changed 02/03) DNR
[2016-02-05] MEDS: INSULIN DETEMIR 100 UNITS/ML MDV SQ SCH (22:11)
[2016-02-06] MEDS: INSULIN SLIDING SCALE (NOVOLOG) 1 VIAL SQ SCH ×2 (06:52→16:56)
[2016-02-06 08:19] LABS: BASOPHIL 0.7 % (0-2.0); EOSINOPHIL 3.4 % (0-4.5); MCH 28.6 pg (25.7-33.7); MCHC 33.4 g/dl (32.0-35.9); MEAN CELL VOLUME 85.6 fl (80-96); MEAN PLT VOLUME 7.7 fl (7.5-11.1); NEUTROPHILS 74.4 % (42.8-82.8); PLATELET COUNT 319 K/MM3 (134-434); WHITE BLOOD COUNT 11.1 K/mm3 (4.0-10.0)
[2016-02-06] MEDS: AMINO ACIDS/PROTEIN HYDROLYS SUGAR-FREE 30 ML PACKET PO SCH ×2 (10:58→16:57)
[2016-02-06] MEDS: PANTOPRAZOLE SOD 40 MG SUSPENSION PACKET GT SCH (10:59)
[2016-02-06] MEDS: LACTOBACILLUS ACIDOPHILUS 1 EACH TAB (FP) PO SCH (10:59)
[2016-02-06] MEDS: MULTIVITAMINS THERAPEUTIC GT SCH (10:59)
[2016-02-06] MEDS: METOPROLOL TARTRATE 50 MG TABLET (FP) GT SCH ×2 (10:59→23:03)
[2016-02-06] MEDS: amLODIPine BESYLATE 10 MG TABLET (FP) GT SCH (10:59)
[2016-02-06] MEDS: LISINOPRIL 20 MG TABLET (FP) GT SCH (10:59)
[2016-02-06] MEDS: guaiFENesin/D-METHORPHAN HB 10 ML UNIT-DOSE CUPS PO PRN ×2 (11:00→23:04)
--- NOTE | 2016-02-06 20:30 | PN ---
Progress Note (short form) - Note Progress Note: Subjective: unable to obtain hx. Objective: Last Vital Signs Temp Pulse Resp BP Pulse Ox 98.8 F 79 20 142/88 98 02/06/16 16:45 02/06/16 16:45 02/06/16 16:45 02/06/16 16:45 02/06/16 10:15 Physical Exam: NAD. sleeping CV: RRR, no MRG lungs: clear chest today ext: no edema on legs. abd: soft, NT, ND , nl BS. PEG in place with intact skin . Laboratory Results - last 24 hr 02/05/16 02/06/16 02/06/16 22:05 06:49 07:15 WBC 11.1 H RBC 3.45 L Hgb 9.9 L Hct 29.5 L MCV 85.6 MCHC 33.4 RDW 15.0 Plt Count 319 MPV 7.7 Neutrophils % 74.4 Lymphocytes % 16.7 Monocytes % 4.8 Eosinophils % 3.4 Basophils % 0.7 POC Glucometer 205 174 02/06/16 16:54 WBC RBC Hgb Hct MCV MCHC RDW Plt Count MPV Neutrophils % Lymphocytes % Monocytes % Eosinophils % Basophils % POC Glucometer 209 Assessment/Plan: 75 yo M with PMH HTN, DM, inguinal hernia a/w BRBPR and melena with multiple syncopal episodes. Dx with persistent diverticular bleed with R hemicolectomy, course complicated with CVA now in the ICU unresponsive and anoxic brain injury had tracheostomy on 07/23. also s/p PEG placement and iliac artery bleed s /p embolization 09/03/15. received a course of ABx for HCAp in Oct/nov 1-fever : probably due to the new thrombus noted in L [place] . resolved - leukocytosis better today . - no need to treat acinetobacter as it is likely colonization . 2- DVTs : s/p IVC filter 3- acute GI bleed, s/p colonoscopy and R hemicolectomy. no further bleed 4- Anoxic brain injury and CVA, s/p Trach 07/23. s/p PEG 5- HTN: cont meds . 6- DM: cont insulin . 7- nutrition through PEG : at goal 60 cc/hr. free water rate at 40 cc /hr ( changed 02/03) DNR
[2016-02-06] MEDS: INSULIN DETEMIR 100 UNITS/ML MDV SQ SCH (23:02)
[2016-02-06] MEDS: ACETAMINOPHEN 650 MG/20.3 ML ORAL SOLUTION (CUPS) GT PRN (23:04)
[2016-02-07] MEDS: INSULIN SLIDING SCALE (NOVOLOG) 1 VIAL SQ SCH ×2 (06:41→17:23)
[2016-02-07] MEDS: AMINO ACIDS/PROTEIN HYDROLYS SUGAR-FREE 30 ML PACKET PO SCH ×2 (08:36→17:24)
[2016-02-07] MEDS: LISINOPRIL 20 MG TABLET (FP) GT SCH (10:56)
[2016-02-07] MEDS: LACTOBACILLUS ACIDOPHILUS 1 EACH TAB (FP) PO SCH (10:57)
[2016-02-07] MEDS: PANTOPRAZOLE SOD 40 MG SUSPENSION PACKET GT SCH (10:57)
[2016-02-07] MEDS: MULTIVITAMINS THERAPEUTIC GT SCH (10:57)
[2016-02-07] MEDS: amLODIPine BESYLATE 10 MG TABLET (FP) GT SCH (10:57)
[2016-02-07] MEDS: METOPROLOL TARTRATE 50 MG TABLET (FP) GT SCH ×2 (10:57→22:53)
--- NOTE | 2016-02-07 18:28 | PN ---
Progress Note (short form) - Note Progress Note: Subjective: unable to obtain hx. Objective: Last Vital Signs Temp Pulse Resp BP Pulse Ox 99.6 F 84 18 156/93 96 02/07/16 14:04 02/07/16 14:04 02/07/16 14:04 02/07/16 14:04 02/07/16 11:54 Physical Exam: NAD. sleeping CV: RRR, no MRG lungs: clear chest today ext: no edema on legs. abd: soft, NT, ND , nl BS. PEG in place with intact skin . Laboratory Results - last 24 hr 02/07/16 02/07/16 06:39 16:56 POC Glucometer 144 168 Assessment/Plan: 75 yo M with PMH HTN, DM, inguinal hernia a/w BRBPR and melena with multiple syncopal episodes. Dx with persistent diverticular bleed with R hemicolectomy, course complicated with CVA now in the ICU unresponsive and anoxic brain injury had tracheostomy on 07/23. also s/p PEG placement and iliac artery bleed s /p embolization 09/03/15. received a course of ABx for HCAp in Oct/nov 1-fever : probably due to the new thrombus noted in L [place] . resolved - no need to treat acinetobacter as it is likely colonization . 2- DVTs : s/p IVC filter 3- acute GI bleed, s/p colonoscopy and R hemicolectomy. no further bleed 4- Anoxic brain injury and CVA, s/p Trach 07/23. s/p PEG 5- HTN: cont meds . 6- DM: cont insulin . 7- nutrition through PEG : at goal 60 cc/hr. free water rate at 40 cc /hr ( changed 02/03) DNR
[2016-02-07] MEDS: INSULIN DETEMIR 100 UNITS/ML MDV SQ SCH (22:48)
[2016-02-08] MEDS: INSULIN SLIDING SCALE (NOVOLOG) 1 VIAL SQ SCH ×2 (06:21→17:45)
[2016-02-08] MEDS: AMINO ACIDS/PROTEIN HYDROLYS SUGAR-FREE 30 ML PACKET PO SCH ×2 (10:37→17:44)
[2016-02-08] MEDS: PANTOPRAZOLE SOD 40 MG SUSPENSION PACKET GT SCH (10:40)
[2016-02-08] MEDS: LACTOBACILLUS ACIDOPHILUS 1 EACH TAB (FP) PO SCH (10:40)
[2016-02-08] MEDS: LISINOPRIL 20 MG TABLET (FP) GT SCH (10:41)
[2016-02-08] MEDS: amLODIPine BESYLATE 10 MG TABLET (FP) GT SCH (10:41)
[2016-02-08] MEDS: METOPROLOL TARTRATE 50 MG TABLET (FP) GT SCH ×2 (10:41→22:25)
[2016-02-08] MEDS: MULTIVITAMINS THERAPEUTIC GT SCH (10:41)
--- NOTE | 2016-02-08 16:02 | PN ---
Progress Note (short form) - Note Progress Note: Subjective: unable to obtain hx. Objective: Last Vital Signs Temp Pulse Resp BP Pulse Ox 99.2 F 90 20 142/64 96 02/08/16 15:25 02/08/16 15:25 02/08/16 15:25 02/08/16 15:25 02/07/16 11:54 Physical Exam: NAD. sleeping CV: RRR, no MRG lungs: clear chest today ext: no edema on legs. abd: soft, NT, ND , nl BS. PEG in place with intact skin . Laboratory Results - last 24 hr 02/07/16 02/07/16 02/08/16 16:56 22:47 06:12 POC Glucometer 168 203 205 02/08/16 10:39 POC Glucometer 110 Assessment/Plan: 75 yo M with PMH HTN, DM, inguinal hernia a/w BRBPR and melena with multiple syncopal episodes. Dx with persistent diverticular bleed with R hemicolectomy, course complicated with CVA now in the ICU unresponsive and anoxic brain injury had tracheostomy on 07/23. also s/p PEG placement and iliac artery bleed s /p embolization 09/03/15. received a course of ABx for HCAp in Oct/nov 1-fever : probably due to the new thrombus noted in L [place] . resolved - no need to treat acinetobacter as it is likely colonization . - CBC tomorrow 2- DVTs : s/p IVC filter 3- acute GI bleed, s/p colonoscopy and R hemicolectomy. no further bleed 4- Anoxic brain injury and CVA, s/p Trach 07/23. s/p PEG 5- HTN: cont meds . 6- DM: cont insulin . 7- nutrition through PEG : at goal 60 cc/hr. free water rate at 40 cc /hr ( changed 02/03) check Na level DNR
[2016-02-08] MEDS: INSULIN DETEMIR 100 UNITS/ML MDV SQ SCH (22:25)
[2016-02-09] MEDS: INSULIN SLIDING SCALE (NOVOLOG) 1 VIAL SQ SCH ×2 (06:02→17:17)
[2016-02-09] MEDS: AMINO ACIDS/PROTEIN HYDROLYS SUGAR-FREE 30 ML PACKET PO SCH ×2 (08:00→17:17)
--- NOTE | 2016-02-09 10:19 | PN ---
Progress Note (short form) - Note Progress Note: Patient has no new complains. No changes with his mentation. Vital Signs Temperature 97.5 F L 02/09/16 06:00 Pulse Rate 86 02/09/16 06:00 Respiratory Rate 18 02/09/16 06:00 Blood Pressure 138/92 02/09/16 06:00 O2 Sat by Pulse Oximetry (%) 94 L 02/08/16 21:00 SKIN: Warm, dry, normal turgor, no rashes or lesions noted GENERAL: The patient has periods of somnolence, periods of wakefulness. Awake today EYES: Pupils equal, round and reactive to light, sclera anicteric, conjunctiva clear. ENT: Ears normal, nares patent. Moist mucous membranes. Trach collar, thin, white/sharma secretions. NECK: Normal range of motion, supple without lymphadenopathy, JVD, or masses. LUNGS: Coarse breath sounds. No wheezes, and no crackles. HEART: Regular rate and rhythm, normal S1 and S2 without murmur, rub or gallop. ABDOMEN: Soft, nontender, normoactive bowel sounds. No guarding, no rebound. EXTREMITIES: 2+ pulses, warm, well-perfused, no edema. NEUROLOGICAL: Unable to assess. SKIN: Wounds not visualized today. CBCD WBC 11.1 K/mm3 (4.0-10.0) H 02/06/16 07:15 RBC 3.45 M/mm3 (4.00-5.60) L 02/06/16 07:15 Hgb 9.9 GM/dL (11.7-16.9) L 02/06/16 07:15 Hct 29.5 % (35.4-49) L 02/06/16 07:15 MCV 85.6 fl (80-96) 02/06/16 07:15 MCHC 33.4 g/dl (32.0-35.9) 02/06/16 07:15 RDW 15.0 % (11.9-15.9) 02/06/16 07:15 Plt Count 319 K/MM3 (134-434) 02/06/16 07:15 MPV 7.7 fl (7.5-11.1) 02/06/16 07:15 CMP Sodium 141 mmol/L (136-145) 02/09/16 06:00 Potassium 3.8 mmol/L (3.5-5.1) 02/03/16 06:25 Chloride 99 mmol/L (98-107) 02/03/16 06:25 Carbon Dioxide 28 mmol/L (21-32) 02/03/16 06:25 Anion Gap 11 (8-16) 02/03/16 06:25 BUN 16 mg/dL (7-18) D 02/03/16 06:25 Creatinine 0.7 mg/dL (0.7-1.3) 02/03/16 06:25 Creat Clearance w eGFR > 60 (>60) 02/03/16 06:25 Random Glucose 189 mg/dL (74-106) H D 02/03/16 06:25 Calcium 9.3 mg/dL (8.5-10.1) 02/03/16 06:25 Total Bilirubin 0.3 mg/dL (0.2-1.0) D 02/03/16 06:25 AST 12 U/L (15-37) L 02/03/16 06:25 ALT 24 U/L (12-78) 02/03/16 06:25 Alkaline Phosphatase 121 U/L (45-117) H D 02/03/16 06:25 Total Protein 7.6 g/dl (6.4-8.2) 02/03/16 06:25 Albumin 3.0 g/dl (3.4-5.0) L 02/03/16 06:25 CARDIAC ENZYMES Creatine Kinase 62 IU/L (38-174) 06/28/15 09:35 Troponin I 0.07 ng/ml (0.03-0.5) D 07/09/15 05:00 Current Medications Generic Name Dose Route Start Last Admin Trade Name Freq PRN Reason Stop Dose Admin Acetaminophen 650 mg 12/29/15 10:43 02/06/16 23:04 Tylenol Oral Solution - GT 650 mg Q6H PRN Administration FEVER Albuterol/Ipratropium 1 amp 02/02/16 18:45 Duoneb - NEB Q4H PRN SHORTNESS OF BREATH Amino Acids 30 ml 12/29/15 17:30 02/08/16 17:44 Prostat Sugar-Free Packet - PO 30 ml BID@0800,1730 KWAKU Administration Amlodipine Besylate 10 mg 12/30/15 10:00 02/08/16 10:41 Norvasc - GT 10 mg DAILY KWAKU Administration Guaifenesin 10 ml 12/29/15 10:43 02/06/16 23:04 Robitussin Dm - PO 10 ml Q6H PRN Administration COUGH Ibuprofen 200 mg 12/29/15 10:43 02/03/16 15:10 Motrin Oral Suspension - PO 200 mg Q6H PRN Administration FEVER Insulin Aspart 1 vial 01/28/16 16:30 02/09/16 06:02 Novolog Vial Sliding Scale - SQ 4 units BIDI KWAKU Administration Protocol Insulin Detemir 28 units 12/29/15 22:00 02/08/16 22:25 Levemir Vial SQ 28 units HS KWAKU Administration Lactobacillus Acidophilus 1 tab 12/30/15 10:00 02/08/16 10:40 Bacid - PO 1 tab DAILY KWAKU Administration Lisinopril 40 mg 12/30/15 10:00 02/08/16 10:41 Prinivil - GT 40 mg DAILY KWAKU Administration Metoprolol Tartrate 150 mg 12/29/15 22:00 02/08/16 22:25 Lopressor - GT 150 mg BID KWAKU Administration Metoprolol Tartrate 5 mg 12/29/15 10:43 Lopressor Injection - IVPB Q6H PRN HYPERTENSION Multivitamins 5 ml 12/30/15 10:00 02/08/16 10:41 Thera-Plus - GT 5 ml DAILY KWAKU Administration Pantoprazole Sodium 40 mg 12/30/15 10:00 02/08/16 10:40 Protonix Packets For Oral Suspension - GT 40 mg DAILY KWAKU Administration Medication Instructions Recorded Amino Acids/Protein Hydrolys 30 ml GT DAILY packet 08/09/15 [Prostat Sugar-Free Packet -] Amlodipine Besylate [Norvasc -] 10 mg GT DAILY tablet 08/09/15 Chlorhexidine Gluconate [Peridex -] 15 ml MM BID cup 08/09/15 Insulin (Levemir) [Levemir Flexpen 25 units SQ HS pen 08/09/15 -] Insulin (Novolog) [Novolog Flexpen 3 units SQ Q6HPO pen 08/09/15 -] Insulin Sliding Scale [Novolog 0 units SQ Q6HPO pen 08/09/15 Vial Sliding Scale -] Lisinopril [Prinivil] 20 mg GT DAILY tablet 08/09/15 Metoprolol Tartrate Injection 5 mg IVPB Q6H PRN #0 vial 08/09/15 [Lopressor Injection -] Metoprolol Tartrate [Lopressor -] 100 mg GT BID tablet 08/09/15 Ondansetron Injection [Zofran 4 mg IVPB Q6H PRN #0 vial 08/09/15 Injection] Pantoprazole Suspension [Protonix 40 mg GT DAILY packet 08/09/15 Packets For Oral Suspension -] Vancomycin Oral Solution 125 mg GT Q6HPO ml 08/09/15 ASSESSMENT/PLAN: 75 year old male with PMHx of HTN, IDDM, inguinal hernia who presented to the ED with diverticular bleed s/p Right hemicolectomy with 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 PT developed HCAP and completed 7 days course of vanc/zosyn on 12/01/15. no change in his outcome, weekly labs.stable. 1. B/L DVT of lower extremities s/p IVC filter, No fever today but previously was from his DVT, post tylenol patient is afebrile. 2. Anoxic brain injury s/p brainstem CVAs , Mental status unchanged 3. Respiratory failure secondary to anoxic brain injury - Cont trach collar , duonebs PRN ,Albuterol neb PRN 4. HTN Cont lisinopril, metoprolol, amlodipine 5. Multiple pressure ulcers, Stage III sacrum healing - Stage II left ear healing, Turn and position q2h 6. IDDM, Levemir 28 units HS - ISS BGM ACHS FEN: - continue Tube feeds: Vital 1.5 @60ml/hr continue - PT for passive ROM - PT for passive ROM
[2016-02-09] MEDS: METOPROLOL TARTRATE 50 MG TABLET (FP) GT SCH ×2 (10:55→21:36)
[2016-02-09] MEDS: LACTOBACILLUS ACIDOPHILUS 1 EACH TAB (FP) PO SCH (10:55)
[2016-02-09] MEDS: LISINOPRIL 20 MG TABLET (FP) GT SCH (10:56)
[2016-02-09] MEDS: amLODIPine BESYLATE 10 MG TABLET (FP) GT SCH (10:56)
[2016-02-09] MEDS: MULTIVITAMINS THERAPEUTIC GT SCH (10:56)
[2016-02-09] MEDS: PANTOPRAZOLE SOD 40 MG SUSPENSION PACKET GT SCH (10:56)
[2016-02-09] MEDS: INSULIN DETEMIR 100 UNITS/ML MDV SQ SCH (21:35)
[2016-02-10] MEDS: INSULIN SLIDING SCALE (NOVOLOG) 1 VIAL SQ SCH ×2 (06:41→17:53)
[2016-02-10] MEDS: AMINO ACIDS/PROTEIN HYDROLYS SUGAR-FREE 30 ML PACKET PO SCH ×2 (08:15→17:56)
[2016-02-10] MEDS: LACTOBACILLUS ACIDOPHILUS 1 EACH TAB (FP) PO SCH (09:46)
[2016-02-10] MEDS: METOPROLOL TARTRATE 50 MG TABLET (FP) GT SCH ×2 (09:47→21:53)
[2016-02-10] MEDS: amLODIPine BESYLATE 10 MG TABLET (FP) GT SCH (09:48)
[2016-02-10] MEDS: LISINOPRIL 20 MG TABLET (FP) GT SCH (09:48)
[2016-02-10] MEDS: MULTIVITAMINS THERAPEUTIC GT SCH (09:49)
[2016-02-10] MEDS: PANTOPRAZOLE SOD 40 MG SUSPENSION PACKET GT SCH (09:49)
--- NOTE | 2016-02-10 16:01 | PN ---
Progress Note (short form) - Note Progress Note: No new changes now. Vital Signs Temperature 99.8 F H 02/10/16 14:57 Pulse Rate 94 H 02/10/16 14:57 Respiratory Rate 22 02/10/16 14:57 Blood Pressure 162/96 02/10/16 14:57 O2 Sat by Pulse Oximetry (%) 95 02/10/16 11:06 SKIN: Warm, dry, normal turgor, no rashes or lesions noted GENERAL: The patient has periods of somnolence, periods of wakefulness. Awake today EYES: Pupils equal, round and reactive to light, sclera anicteric, conjunctiva clear. ENT: Ears normal, nares patent. Moist mucous membranes. Trach collar, thin, white/sharma secretions. NECK: Normal range of motion, supple without lymphadenopathy, JVD, or masses. LUNGS: Coarse breath sounds. No wheezes, and no crackles. HEART: Regular rate and rhythm, normal S1 and S2 without murmur, rub or gallop. ABDOMEN: Soft, nontender, normoactive bowel sounds. No guarding, no rebound. EXTREMITIES: 2+ pulses, warm, well-perfused, no edema. NEUROLOGICAL: Unable to assess. SKIN: Wounds not visualized today. CBCD WBC 11.1 K/mm3 (4.0-10.0) H 02/06/16 07:15 RBC 3.45 M/mm3 (4.00-5.60) L 02/06/16 07:15 Hgb 9.9 GM/dL (11.7-16.9) L 02/06/16 07:15 Hct 29.5 % (35.4-49) L 02/06/16 07:15 MCV 85.6 fl (80-96) 02/06/16 07:15 MCHC 33.4 g/dl (32.0-35.9) 02/06/16 07:15 RDW 15.0 % (11.9-15.9) 02/06/16 07:15 Plt Count 319 K/MM3 (134-434) 02/06/16 07:15 MPV 7.7 fl (7.5-11.1) 02/06/16 07:15 CMP Sodium 141 mmol/L (136-145) 02/09/16 06:00 Potassium 3.8 mmol/L (3.5-5.1) 02/03/16 06:25 Chloride 99 mmol/L (98-107) 02/03/16 06:25 Carbon Dioxide 28 mmol/L (21-32) 02/03/16 06:25 Anion Gap 11 (8-16) 02/03/16 06:25 BUN 16 mg/dL (7-18) D 02/03/16 06:25 Creatinine 0.7 mg/dL (0.7-1.3) 02/03/16 06:25 Creat Clearance w eGFR > 60 (>60) 02/03/16 06:25 Random Glucose 189 mg/dL (74-106) H D 02/03/16 06:25 Calcium 9.3 mg/dL (8.5-10.1) 02/03/16 06:25 Total Bilirubin 0.3 mg/dL (0.2-1.0) D 02/03/16 06:25 AST 12 U/L (15-37) L 02/03/16 06:25 ALT 24 U/L (12-78) 02/03/16 06:25 Alkaline Phosphatase 121 U/L (45-117) H D 02/03/16 06:25 Total Protein 7.6 g/dl (6.4-8.2) 02/03/16 06:25 Albumin 3.0 g/dl (3.4-5.0) L 02/03/16 06:25 CARDIAC ENZYMES Creatine Kinase 62 IU/L (38-174) 06/28/15 09:35 Troponin I 0.07 ng/ml (0.03-0.5) D 07/09/15 05:00 Current Medications Generic Name Dose Route Start Last Admin Trade Name Freq PRN Reason Stop Dose Admin Acetaminophen 650 mg 12/29/15 10:43 02/06/16 23:04 Tylenol Oral Solution - GT 650 mg Q6H PRN Administration FEVER Albuterol/Ipratropium 1 amp 02/02/16 18:45 Duoneb - NEB Q4H PRN SHORTNESS OF BREATH Amino Acids 30 ml 12/29/15 17:30 02/10/16 08:15 Prostat Sugar-Free Packet - PO 30 ml BID@0800,1730 KWAKU Administration Amlodipine Besylate 10 mg 12/30/15 10:00 02/10/16 09:48 Norvasc - GT 10 mg DAILY KWAKU Administration Guaifenesin 10 ml 12/29/15 10:43 02/06/16 23:04 Robitussin Dm - PO 10 ml Q6H PRN Administration COUGH Ibuprofen 200 mg 12/29/15 10:43 02/03/16 15:10 Motrin Oral Suspension - PO 200 mg Q6H PRN Administration FEVER Insulin Aspart 1 vial 01/28/16 16:30 02/10/16 06:41 Novolog Vial Sliding Scale - SQ 2 units BIDI KWAKU Administration Protocol Insulin Detemir 28 units 12/29/15 22:00 02/09/16 21:35 Levemir Vial SQ 28 units HS KWAKU Administration Lactobacillus Acidophilus 1 tab 12/30/15 10:00 02/10/16 09:46 Bacid - PO 1 tab DAILY KWAKU Administration Lisinopril 40 mg 12/30/15 10:00 02/10/16 09:48 Prinivil - GT 40 mg DAILY KWAKU Administration Metoprolol Tartrate 150 mg 12/29/15 22:00 02/10/16 09:47 Lopressor - GT 150 mg BID KWAKU Administration Metoprolol Tartrate 5 mg 12/29/15 10:43 Lopressor Injection - IVPB Q6H PRN HYPERTENSION Multivitamins 5 ml 12/30/15 10:00 02/10/16 09:49 Thera-Plus - GT 5 ml DAILY KWAKU Administration Pantoprazole Sodium 40 mg 12/30/15 10:00 02/10/16 09:49 Protonix Packets For Oral Suspension - GT 40 mg DAILY KWAKU Administration ASSESSMENT/PLAN: 75 year old male with PMHx of HTN, IDDM, inguinal hernia who presented to the ED with diverticular bleed s/p Righ hemicolectomy with 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 PT developed HCAP and completed 7 days course of vanc/zosyn on 12/01/15. no change in his outcome, weekly labs.stable. 1. B/L DVT of lower extremities s/p IVC filter, most likely Fever is from DVT, post tylenol patient is afebrile. 2. Anoxic brain injury s/p brainstem CVAs , Mental status unchanged 3. Respiratory failure secondary to anoxic brain injury - Cont trach collar , duonebs PRN ,Albuterol neb PRN 4. HTN Cont lisinopril, metoprolol, amlodipine 5. Multiple pressure ulcers, Stage III sacrum healing - Stage II left ear healing, Turn and position q2h 6. IDDM, Levemir 28 units HS - ISS BGM ACHS FEN: - continue Tube feeds: Vital 1.5 @60ml/hr continue - PT for passive ROM CODE STATUS: DNR
[2016-02-10] MEDS: INSULIN DETEMIR 100 UNITS/ML MDV SQ SCH (21:54)
[2016-02-11] MEDS: INSULIN SLIDING SCALE (NOVOLOG) 1 VIAL SQ SCH ×2 (06:21→18:10)
[2016-02-11] MEDS: MULTIVITAMINS THERAPEUTIC GT SCH (11:03)
[2016-02-11] MEDS: LACTOBACILLUS ACIDOPHILUS 1 EACH TAB (FP) PO SCH (11:03)
[2016-02-11] MEDS: METOPROLOL TARTRATE 50 MG TABLET (FP) GT SCH ×2 (11:03→22:12)
[2016-02-11] MEDS: AMINO ACIDS/PROTEIN HYDROLYS SUGAR-FREE 30 ML PACKET PO SCH ×2 (11:04→18:07)
[2016-02-11] MEDS: amLODIPine BESYLATE 10 MG TABLET (FP) GT SCH (11:04)
[2016-02-11] MEDS: LISINOPRIL 20 MG TABLET (FP) GT SCH (11:05)
[2016-02-11] MEDS: PANTOPRAZOLE SOD 40 MG SUSPENSION PACKET GT SCH (11:05)
--- NOTE | 2016-02-11 16:38 | PN ---
Progress Note (short form) - Note Progress Note: Comfortable, no new changes. Vital Signs Temperature 98.8 F 02/11/16 15:55 Pulse Rate 90 02/11/16 15:55 Respiratory Rate 22 02/11/16 15:55 Blood Pressure 153/96 02/11/16 15:55 O2 Sat by Pulse Oximetry (%) 99 02/11/16 10:10 SKIN: Warm, dry, normal turgor, no rashes or lesions noted GENERAL: The patient has periods of somnolence, periods of wakefulness. Awake today EYES: Pupils equal, round and reactive to light, sclera anicteric, conjunctiva clear. ENT: Ears normal, nares patent. Moist mucous membranes. Trach collar, thin, white/sharma secretions. NECK: Normal range of motion, supple without lymphadenopathy, JVD, or masses. LUNGS: Coarse breath sounds. No wheezes, and no crackles. HEART: Regular rate and rhythm, normal S1 and S2 without murmur, rub or gallop. ABDOMEN: Soft, nontender, normoactive bowel sounds. No guarding, no rebound. EXTREMITIES: 2+ pulses, warm, well-perfused, no edema. NEUROLOGICAL: Unable to assess. SKIN: Wounds not visualized today. CBCD WBC 11.1 K/mm3 (4.0-10.0) H 02/06/16 07:15 RBC 3.45 M/mm3 (4.00-5.60) L 02/06/16 07:15 Hgb 9.9 GM/dL (11.7-16.9) L 02/06/16 07:15 Hct 29.5 % (35.4-49) L 02/06/16 07:15 MCV 85.6 fl (80-96) 02/06/16 07:15 MCHC 33.4 g/dl (32.0-35.9) 02/06/16 07:15 RDW 15.0 % (11.9-15.9) 02/06/16 07:15 Plt Count 319 K/MM3 (134-434) 02/06/16 07:15 MPV 7.7 fl (7.5-11.1) 02/06/16 07:15 CMP Sodium 141 mmol/L (136-145) 02/09/16 06:00 Potassium 3.8 mmol/L (3.5-5.1) 02/03/16 06:25 Chloride 99 mmol/L (98-107) 02/03/16 06:25 Carbon Dioxide 28 mmol/L (21-32) 02/03/16 06:25 Anion Gap 11 (8-16) 02/03/16 06:25 BUN 16 mg/dL (7-18) D 02/03/16 06:25 Creatinine 0.7 mg/dL (0.7-1.3) 02/03/16 06:25 Creat Clearance w eGFR > 60 (>60) 02/03/16 06:25 Random Glucose 189 mg/dL (74-106) H D 02/03/16 06:25 Calcium 9.3 mg/dL (8.5-10.1) 02/03/16 06:25 Total Bilirubin 0.3 mg/dL (0.2-1.0) D 02/03/16 06:25 AST 12 U/L (15-37) L 02/03/16 06:25 ALT 24 U/L (12-78) 02/03/16 06:25 Alkaline Phosphatase 121 U/L (45-117) H D 02/03/16 06:25 Total Protein 7.6 g/dl (6.4-8.2) 02/03/16 06:25 Albumin 3.0 g/dl (3.4-5.0) L 02/03/16 06:25 CARDIAC ENZYMES Creatine Kinase 62 IU/L (38-174) 06/28/15 09:35 Troponin I 0.07 ng/ml (0.03-0.5) D 07/09/15 05:00 Current Medications Generic Name Dose Route Start Last Admin Trade Name Freq PRN Reason Stop Dose Admin Acetaminophen 650 mg 12/29/15 10:43 02/06/16 23:04 Tylenol Oral Solution - GT 650 mg Q6H PRN Administration FEVER Albuterol/Ipratropium 1 amp 02/02/16 18:45 Duoneb - NEB Q4H PRN SHORTNESS OF BREATH Amino Acids 30 ml 12/29/15 17:30 02/11/16 11:04 Prostat Sugar-Free Packet - PO 30 ml BID@0800,1730 KWAKU Administration Amlodipine Besylate 10 mg 12/30/15 10:00 02/11/16 11:04 Norvasc - GT 10 mg DAILY KWAKU Administration Guaifenesin 10 ml 12/29/15 10:43 02/06/16 23:04 Robitussin Dm - PO 10 ml Q6H PRN Administration COUGH Ibuprofen 200 mg 12/29/15 10:43 02/03/16 15:10 Motrin Oral Suspension - PO 200 mg Q6H PRN Administration FEVER Insulin Aspart 1 vial 01/28/16 16:30 02/11/16 06:21 Novolog Vial Sliding Scale - SQ 4 units BIDI KWAKU Administration Protocol Insulin Detemir 28 units 12/29/15 22:00 02/10/16 21:54 Levemir Vial SQ 28 units HS KWAKU Administration Lactobacillus Acidophilus 1 tab 12/30/15 10:00 02/11/16 11:03 Bacid - PO 1 tab DAILY KWAKU Administration Lisinopril 40 mg 12/30/15 10:00 02/11/16 11:05 Prinivil - GT 40 mg DAILY KWAKU Administration Metoprolol Tartrate 150 mg 12/29/15 22:00 02/11/16 11:03 Lopressor - GT 150 mg BID KWAKU Administration Metoprolol Tartrate 5 mg 12/29/15 10:43 Lopressor Injection - IVPB Q6H PRN HYPERTENSION Multivitamins 5 ml 12/30/15 10:00 02/11/16 11:03 Thera-Plus - GT 5 ml DAILY KWAKU Administration Pantoprazole Sodium 40 mg 12/30/15 10:00 02/11/16 11:05 Protonix Packets For Oral Suspension - GT 40 mg DAILY KWAKU Administration ASSESSMENT/PLAN: 75 year old male with PMHx of HTN, IDDM, inguinal hernia who presented to the ED with diverticular bleed s/p Righ hemicolectomy with 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 PT developed HCAP and completed 7 days course of vanc/zosyn on 12/01/15. no change in his outcome, weekly labs.stable. 1. B/L DVT of lower extremities s/p IVC filter, most likely Fever is from DVT, post tylenol patient is afebrile. 2. Anoxic brain injury s/p brainstem CVAs , Mental status unchanged 3. Respiratory failure secondary to anoxic brain injury - Cont trach collar , duonebs PRN ,Albuterol neb PRN 4. HTN Cont lisinopril, metoprolol, amlodipine 5. Multiple pressure ulcers, Stage III sacrum healing - Stage II left ear healing, Turn and position q2h 6. IDDM, Levemir 28 units HS - ISS BGM ACHS FEN: - continue Tube feeds: Vital 1.5 @60ml/hr continue - PT for passive ROM CODE STATUS: DNR - PT for passive ROM CODE STATUS: DNR
[2016-02-11 18:54] LABS: BASOPHIL 0.6 % (0-2.0); EOSINOPHIL 2.9 % (0-4.5); MCH 28.3 pg (25.7-33.7); MCHC 32.3 g/dl (32.0-35.9); MEAN CELL VOLUME 87.8 fl (80-96); MEAN PLT VOLUME 7.9 fl (7.5-11.1); PLATELET COUNT 401 K/MM3 (134-434); WHITE BLOOD COUNT 13.7 K/mm3 (4.0-10.0)
[2016-02-11] MEDS: INSULIN DETEMIR 100 UNITS/ML MDV SQ SCH (22:12)
[2016-02-12] MEDS: INSULIN SLIDING SCALE (NOVOLOG) 1 VIAL SQ SCH ×2 (06:57→17:18)
[2016-02-12] MEDS: AMINO ACIDS/PROTEIN HYDROLYS SUGAR-FREE 30 ML PACKET PO SCH ×2 (08:00→17:18)
[2016-02-12 09:10] LABS: ALK PHOS 97 U/L (45-117); ANION GAP 7 (8-16); BILIRUBIN,TOTAL 0.2 mg/dL (0.2-1.0); CALCIUM 9.8 mg/dL (8.5-10.1); CO2 33 mmol/L (21-32); CREATININE 0.8 mg/dL (0.7-1.3); GLUCOSE,RANDOM 139 mg/dL (74-106); MAGNESIUM 1.9 mg/dL (1.8-2.4); SGOT/AST 13 U/L (15-37); SGPT/ALT 21 U/L (12-78); TOT PROT 7.5 g/dl (6.4-8.2)
[2016-02-12] MEDS: MULTIVITAMINS THERAPEUTIC GT SCH (10:57)
[2016-02-12] MEDS: LACTOBACILLUS ACIDOPHILUS 1 EACH TAB (FP) PO SCH (10:57)
[2016-02-12] MEDS: METOPROLOL TARTRATE 50 MG TABLET (FP) GT SCH ×2 (10:57→21:07)
[2016-02-12] MEDS: LISINOPRIL 20 MG TABLET (FP) GT SCH (10:57)
[2016-02-12] MEDS: PANTOPRAZOLE SOD 40 MG SUSPENSION PACKET GT SCH (10:57)
[2016-02-12] MEDS: amLODIPine BESYLATE 10 MG TABLET (FP) GT SCH (10:57)
--- NOTE | 2016-02-12 19:16 | PN ---
Progress Note (short form) - Note Progress Note: Lying in bed with no change. Vital Signs Temperature 98.6 F 02/12/16 18:08 Pulse Rate 82 02/12/16 18:08 Respiratory Rate 18 02/12/16 18:08 Blood Pressure 133/79 02/12/16 18:08 O2 Sat by Pulse Oximetry (%) 98 02/12/16 11:39 SKIN: Warm, dry, normal turgor, no rashes or lesions noted GENERAL: The patient has periods of somnolence, periods of wakefulness. Awake today EYES: Pupils equal, round and reactive to light, sclera anicteric, conjunctiva clear. ENT: Ears normal, nares patent. Moist mucous membranes. Trach collar, thin, white/sharma secretions. NECK: Normal range of motion, supple without lymphadenopathy, JVD, or masses. LUNGS: Coarse breath sounds. No wheezes, and no crackles. HEART: Regular rate and rhythm, normal S1 and S2 without murmur, rub or gallop. ABDOMEN: Soft, nontender, normoactive bowel sounds. No guarding, no rebound. EXTREMITIES: 2+ pulses, warm, well-perfused, no edema. NEUROLOGICAL: Unable to assess. SKIN: Wounds not visualized today. CBCD WBC 13.7 K/mm3 (4.0-10.0) H 02/11/16 17:10 RBC 3.37 M/mm3 (4.00-5.60) L 02/11/16 17:10 Hgb 9.5 GM/dL (11.7-16.9) L 02/11/16 17:10 Hct 29.6 % (35.4-49) L 02/11/16 17:10 MCV 87.8 fl (80-96) 02/11/16 17:10 MCHC 32.3 g/dl (32.0-35.9) 02/11/16 17:10 RDW 15.0 % (11.9-15.9) 02/11/16 17:10 Plt Count 401 K/MM3 (134-434) D 02/11/16 17:10 MPV 7.9 fl (7.5-11.1) 02/11/16 17:10 CMP Sodium 142 mmol/L (136-145) 02/12/16 08:00 Potassium 4.0 mmol/L (3.5-5.1) 02/12/16 08:00 Chloride 102 mmol/L (98-107) 02/12/16 08:00 Carbon Dioxide 33 mmol/L (21-32) H 02/12/16 08:00 Anion Gap 7 (8-16) L 02/12/16 08:00 BUN 26 mg/dL (7-18) H D 02/12/16 08:00 Creatinine 0.8 mg/dL (0.7-1.3) 02/12/16 08:00 Creat Clearance w eGFR > 60 (>60) 02/12/16 08:00 Random Glucose 139 mg/dL (74-106) H D 02/12/16 08:00 Calcium 9.8 mg/dL (8.5-10.1) 02/12/16 08:00 Total Bilirubin 0.2 mg/dL (0.2-1.0) D 02/12/16 08:00 AST 13 U/L (15-37) L 02/12/16 08:00 ALT 21 U/L (12-78) 02/12/16 08:00 Alkaline Phosphatase 97 U/L (45-117) 02/12/16 08:00 Total Protein 7.5 g/dl (6.4-8.2) 02/12/16 08:00 Albumin 3.0 g/dl (3.4-5.0) L 02/12/16 08:00 CARDIAC ENZYMES Creatine Kinase 62 IU/L (38-174) 06/28/15 09:35 Troponin I 0.07 ng/ml (0.03-0.5) D 07/09/15 05:00 Current Medications Generic Name Dose Route Start Last Admin Trade Name Freq PRN Reason Stop Dose Admin Acetaminophen 650 mg 12/29/15 10:43 02/06/16 23:04 Tylenol Oral Solution - GT 650 mg Q6H PRN Administration FEVER Albuterol/Ipratropium 1 amp 02/02/16 18:45 Duoneb - NEB Q4H PRN SHORTNESS OF BREATH Amino Acids 30 ml 12/29/15 17:30 02/12/16 17:18 Prostat Sugar-Free Packet - PO 30 ml BID@0800,1730 KWAKU Administration Amlodipine Besylate 10 mg 12/30/15 10:00 02/12/16 10:57 Norvasc - GT 10 mg DAILY KWAKU Administration Guaifenesin 10 ml 12/29/15 10:43 02/06/16 23:04 Robitussin Dm - PO 10 ml Q6H PRN Administration COUGH Ibuprofen 200 mg 12/29/15 10:43 02/03/16 15:10 Motrin Oral Suspension - PO 200 mg Q6H PRN Administration FEVER Insulin Aspart 1 vial 01/28/16 16:30 02/12/16 17:18 Novolog Vial Sliding Scale - SQ 2 units BIDI KWAKU Administration Protocol Insulin Detemir 28 units 12/29/15 22:00 02/11/16 22:12 Levemir Vial SQ 28 units HS KWAKU Administration Lactobacillus Acidophilus 1 tab 12/30/15 10:00 02/12/16 10:57 Bacid - PO 1 tab DAILY KWAKU Administration Lisinopril 40 mg 12/30/15 10:00 02/12/16 10:57 Prinivil - GT 40 mg DAILY KWAKU Administration Metoprolol Tartrate 150 mg 12/29/15 22:00 02/12/16 10:57 Lopressor - GT 150 mg BID KWAKU Administration Metoprolol Tartrate 5 mg 12/29/15 10:43 Lopressor Injection - IVPB Q6H PRN HYPERTENSION Multivitamins 5 ml 12/30/15 10:00 02/12/16 10:57 Thera-Plus - GT 5 ml DAILY KWAKU Administration Pantoprazole Sodium 40 mg 12/30/15 10:00 02/12/16 10:57 Protonix Packets For Oral Suspension - GT 40 mg DAILY KWAKU Administration Current Medications Generic Name Dose Route Start Last Admin Trade Name Freq PRN Reason Stop Dose Admin Acetaminophen 650 mg 12/29/15 10:43 02/06/16 23:04 Tylenol Oral Solution - GT 650 mg Q6H PRN Administration FEVER Albuterol/Ipratropium 1 amp 02/02/16 18:45 Duoneb - NEB Q4H PRN SHORTNESS OF BREATH Amino Acids 30 ml 12/29/15 17:30 02/12/16 17:18 Prostat Sugar-Free Packet - PO 30 ml BID@0800,1730 KWAKU Administration Amlodipine Besylate 10 mg 12/30/15 10:00 02/12/16 10:57 Norvasc - GT 10 mg DAILY KWAKU Administration Guaifenesin 10 ml 12/29/15 10:43 02/06/16 23:04 Robitussin Dm - PO 10 ml Q6H PRN Administration COUGH Ibuprofen 200 mg 12/29/15 10:43 02/03/16 15:10 Motrin Oral Suspension - PO 200 mg Q6H PRN Administration FEVER Insulin Aspart 1 vial 01/28/16 16:30 02/12/16 17:18 Novolog Vial Sliding Scale - SQ 2 units BIDI KWAKU Administration Protocol Insulin Detemir 28 units 12/29/15 22:00 02/11/16 22:12 Levemir Vial SQ 28 units HS KWAKU Administration Lactobacillus Acidophilus 1 tab 12/30/15 10:00 02/12/16 10:57 Bacid - PO 1 tab DAILY KWAKU Administration Lisinopril 40 mg 12/30/15 10:00 02/12/16 10:57 Prinivil - GT 40 mg DAILY KWAKU Administration Metoprolol Tartrate 150 mg 12/29/15 22:00 02/12/16 10:57 Lopressor - GT 150 mg BID KWAKU Administration Metoprolol Tartrate 5 mg 12/29/15 10:43 Lopressor Injection - IVPB Q6H PRN HYPERTENSION Multivitamins 5 ml 12/30/15 10:00 02/12/16 10:57 Thera-Plus - GT 5 ml DAILY KWAKU Administration Pantoprazole Sodium 40 mg 12/30/15 10:00 02/12/16 10:57 Protonix Packets For Oral Suspension - GT 40 mg DAILY KWAKU Administration ASSESSMENT/PLAN: 75 year old male with PMHx of HTN, IDDM, inguinal hernia who presented to the ED with diverticular bleed s/p Righ hemicolectomy with 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 PT developed HCAP and completed 7 days course of vanc/zosyn on 12/01/15. no change in his outcome, weekly labs.stable. 1. B/L DVT of lower extremities s/p IVC filter, most likely Fever is from DVT, post tylenol patient is afebrile. 2. Anoxic brain injury s/p brainstem CVAs , Mental status unchanged 3. Respiratory failure secondary to anoxic brain injury - Cont trach collar , duonebs PRN ,Albuterol neb PRN 4. HTN Cont lisinopril, metoprolol, amlodipine 5. Multiple pressure ulcers, Stage III sacrum healing - Stage II left ear healing, Turn and position q2h 6. IDDM, Levemir 28 units HS - ISS BGM ACHS 7. Slight leukocytosis most likely due to DVT FEN: - continue Tube feeds: Vital 1.5 @60ml/hr continue - PT for passive ROM CODE STATUS: DNR
[2016-02-12] MEDS: INSULIN DETEMIR 100 UNITS/ML MDV SQ SCH (22:02)
[2016-02-13] MEDS: INSULIN SLIDING SCALE (NOVOLOG) 1 VIAL SQ SCH ×2 (06:07→17:59)
[2016-02-13] MEDS: AMINO ACIDS/PROTEIN HYDROLYS SUGAR-FREE 30 ML PACKET PO SCH ×2 (08:00→18:00)
--- NOTE | 2016-02-13 08:34 | PN ---
Physical Exam: SUBJECTIVE: Patient lying comfortably in bed. OBJECTIVE Vital Signs Period Temp Pulse Resp BP Sys/Santiago Pulse Ox Last 24 Hr 98.6 F-99.2 F 82-110 18-20 133-160/76-91 98-98 GENERAL: The patient opens his eyes but is otherwise unresponsive. NECK: Trachea midline, full range of motion, supple. s/p tracheostomy. LUNGS: Bilateral rhonchi, no wheezes, no crackles. HEART: Regular rate and rhythm, S1, S2 without murmur, rub or gallop. ABDOMEN: Soft, nondistended, normoactive bowel sounds, no hepatosplenomegaly, no masses. EXTREMITIES: 2+ pulses, warm, well-perfused, no edema. SKIN: Warm, dry, normal turgor, no rashes or lesions noted Active Medications Generic Name Dose Route Start Last Admin Trade Name Freq PRN Reason Stop Dose Admin Acetaminophen 650 mg 12/29/15 10:43 02/06/16 23:04 Tylenol Oral Solution - GT 650 mg Q6H PRN Administration FEVER Albuterol/Ipratropium 1 amp 02/02/16 18:45 Duoneb - NEB Q4H PRN SHORTNESS OF BREATH Amino Acids 30 ml 12/29/15 17:30 02/12/16 17:18 Prostat Sugar-Free Packet - PO 30 ml BID@0800,1730 KWAKU Administration Amlodipine Besylate 10 mg 12/30/15 10:00 02/12/16 10:57 Norvasc - GT 10 mg DAILY KWAKU Administration Guaifenesin 10 ml 12/29/15 10:43 02/06/16 23:04 Robitussin Dm - PO 10 ml Q6H PRN Administration COUGH Ibuprofen 200 mg 12/29/15 10:43 02/03/16 15:10 Motrin Oral Suspension - PO 200 mg Q6H PRN Administration FEVER Insulin Aspart 1 vial 01/28/16 16:30 02/13/16 06:07 Novolog Vial Sliding Scale - SQ 2 units BIDI KWAKU Administration Protocol Insulin Detemir 28 units 12/29/15 22:00 02/12/16 22:02 Levemir Vial SQ 28 units HS KWAKU Administration Lactobacillus Acidophilus 1 tab 12/30/15 10:00 02/12/16 10:57 Bacid - PO 1 tab DAILY KWAKU Administration Lisinopril 40 mg 12/30/15 10:00 02/12/16 10:57 Prinivil - GT 40 mg DAILY KWAKU Administration Metoprolol Tartrate 150 mg 12/29/15 22:00 02/12/16 21:07 Lopressor - GT 150 mg BID KWAKU Administration Metoprolol Tartrate 5 mg 12/29/15 10:43 Lopressor Injection - IVPB Q6H PRN HYPERTENSION Multivitamins 5 ml 12/30/15 10:00 02/12/16 10:57 Thera-Plus - GT 5 ml DAILY KWAKU Administration Pantoprazole Sodium 40 mg 12/30/15 10:00 02/12/16 10:57 Protonix Packets For Oral Suspension - GT 40 mg DAILY KWAKU Administration Laboratory Results - last 24 hr 02/12/16 02/12/16 02/13/16 08:00 17:17 06:06 Sodium 142 Potassium 4.0 Chloride 102 Carbon Dioxide 33 H Anion Gap 7 L BUN 26 H D Creatinine 0.8 Creat Clearance w eGFR > 60 POC Glucometer 167 181 Random Glucose 139 H D Calcium 9.8 Magnesium 1.9 Total Bilirubin 0.2 D AST 13 L ALT 21 Alkaline Phosphatase 97 Total Protein 7.5 Albumin 3.0 L Microbiology 01/29/16 11:05 Blood - Peripheral Venous Blood Culture - Final NO GROWTH AFTER 5 DAYS INCUBATION 01/29/16 11:05 Blood - Peripheral Venous Blood Culture - Final NO GROWTH AFTER 5 DAYS INCUBATION 01/30/16 08:00 Sputum - Endotracheal Suction W/O Vent Gram Stain - Final 01/30/16 08:00 Sputum - Endotracheal Suction W/O Vent Sputum Culture - Final Acinetobacter Baumannii/Haemol 01/29/16 22:12 Stool Clostridium difficile Antigen (MACHO) - Final 01/29/16 22:12 Stool Clostridium difficile Toxin Assay - Final 01/29/16 14:44 Urine - Urine - Catheterized Urine Culture - Final NO GROWTH OBTAINED 01/06/16 16:00 Stool Clostridium difficile Antigen (MACHO) - Final 01/06/16 16:00 Stool Clostridium difficile Toxin Assay - Final 12/24/15 04:00 Blood - Peripheral Venous Blood Culture - Final NO GROWTH AFTER 5 DAYS INCUBATION 12/24/15 03:30 Blood - Peripheral Venous Blood Culture - Final NO GROWTH AFTER 5 DAYS INCUBATION 12/24/15 05:45 Urine - Urine Clean Catch Urine Culture - Final 10/28/15 10:50 Blood - Peripheral Venous Blood Culture - Final NO GROWTH AFTER 5 DAYS INCUBATION 10/28/15 10:50 Blood - Peripheral Venous Blood Culture - Final NO GROWTH AFTER 5 DAYS INCUBATION 10/30/15 21:15 Stool Clostridium difficile (PCR) - Final 10/28/15 14:30 Urine - Urine - Catheterized Urine Culture - Final NO GROWTH OBTAINED 10/29/15 11:15 Stool Clostridium difficile Antigen (MACHO) - Final 10/29/15 11:15 Stool Clostridium difficile Toxin Assay - Final 09/08/15 16:30 Stool Clostridium difficile Antigen (MACHO) - Final 09/08/15 16:30 Stool Clostridium difficile Toxin Assay - Final 09/01/15 08:53 Blood - Peripheral Venous Blood Culture - Final NO GROWTH AFTER 5 DAYS INCUBATION 09/01/15 08:53 Blood - Peripheral Venous Blood Culture - Final NO GROWTH AFTER 5 DAYS INCUBATION 09/01/15 10:10 Urine - Urine - Catheterized Urine Culture - Final 08/25/15 15:00 Blood - Peripheral Venous Blood Culture - Final NO GROWTH AFTER 5 DAYS INCUBATION 08/25/15 15:00 Blood - Peripheral Venous Blood Culture - Final NO GROWTH AFTER 5 DAYS INCUBATION 08/24/15 19:30 Stool Clostridium difficile Antigen (MACHO) - Final 08/24/15 19:30 Stool Clostridium difficile Toxin Assay - Final 08/14/15 10:50 Blood - Peripheral Venous Blood Culture - Final NO GROWTH AFTER 5 DAYS INCUBATION 08/14/15 10:50 Blood - Peripheral Venous Blood Culture - Final NO GROWTH AFTER 5 DAYS INCUBATION 08/02/15 17:20 Blood - Peripheral Venous Blood Culture - Final NO GROWTH AFTER 5 DAYS INCUBATION 08/02/15 17:20 Blood - Peripheral Venous Blood Culture - Final NO GROWTH AFTER 5 DAYS INCUBATION 07/24/15 21:50 Sputum - Endotrachea Suction/Ventilator Gram Stain - Final 07/24/15 21:50 Sputum - Endotrachea Suction/Ventilator Sputum Culture - Final NORMAL RESPIRATORY ARMAND 07/30/15 18:30 Blood - Peripheral Venous Blood Culture - Final NO GROWTH AFTER 5 DAYS INCUBATION 07/30/15 18:30 Blood - Peripheral Venous Blood Culture - Final NO GROWTH AFTER 5 DAYS INCUBATION 08/02/15 19:00 Urine - Urine Schwratz Urine Culture - Final NO GROWTH OBTAINED 08/02/15 22:55 Stool Clostridium difficile Antigen (MACHO) - Final 08/02/15 22:55 Stool Clostridium difficile Toxin Assay - Final 07/27/15 19:00 Blood - Peripheral Venous Blood Culture - Final NO GROWTH AFTER 5 DAYS INCUBATION 07/27/15 19:00 Blood - Peripheral Venous Blood Culture - Final NO GROWTH AFTER 5 DAYS INCUBATION 07/27/15 19:30 Stool Clostridium difficile (PCR) - Final 07/27/15 15:55 Urine - Urine Schwartz Urine Culture - Final NO GROWTH OBTAINED 07/15/15 11:30 Blood - Peripheral Venous Blood Culture - Final NO GROWTH AFTER 5 DAYS INCUBATION 07/15/15 11:30 Blood - Peripheral Venous Blood Culture - Final NO GROWTH AFTER 5 DAYS INCUBATION 07/10/15 10:30 Stool Stool Culture - Final NO SALMONELLA, SHIGELLA, YERSINIA, CAMPYLOBACTER OR E COLI 0157 ISOLATED 07/10/15 10:35 Stool Clostridium difficile Antigen (MACHO) - Final 07/10/15 10:35 Stool Clostridium difficile Toxin Assay - Final 07/10/15 10:30 Stool Gram Stain - Final 07/02/15 18:00 Blood - Peripheral Venous Blood Culture - Final NO GROWTH AFTER 5 DAYS INCUBATION 07/02/15 18:00 Blood - Peripheral Venous Blood Culture - Final NO GROWTH AFTER 5 DAYS INCUBATION 06/28/15 09:32 Blood - Peripheral Venous Blood Culture - Final NO GROWTH AFTER 5 DAYS INCUBATION 06/28/15 09:32 Blood - Peripheral Venous Blood Culture - Final NO GROWTH AFTER 5 DAYS INCUBATION 06/28/15 17:30 Sputum - Endotrachea Suction/Ventilator Gram Stain - Final 06/28/15 17:30 Sputum - Endotrachea Suction/Ventilator Sputum Culture - Final NORMAL RESPIRATORY ARMAND 06/27/15 20:30 Urine - Urine Schwartz Urine Culture - Final NO GROWTH OBTAINED 06/28/15 10:00 Urine For Antigen Detection Legionella Antigen - Final 06/28/15 10:00 Urine For Antigen Detection Streptococcus pneumoniae Antigen (M - Final ASSESSMENT/PLAN: This is a 75-year-old man with a history of HTN, IDDM, inguinal hernia who presented to the ED with diverticular bleed s/p right hemicolectomy with hospital course complicated by brainstem CVA, anoxic brain injury. 1. DVTs of both lower extremities, s/p IVC filter 2. Anoxic brain injury 3. s/p brainstem CVAs 4. Chronic hypoxic respiratory failure secondary to anoxic brain injury - s/p tracheostomy - Continue DuoNeb as needed 5. HTN - Continue Lisinopril, Lopressor, Norvasc 6. Multiple pressure ulcers - Stage III of sacrum - Stage II of left ear - Continue wound care 7. IDDM - Contniue Levemir, Novolog sliding scale 8. Nutrition - Continue Vital 1.5 via PEG @ 60ml/hr, ProStat, multivitamin Visit Type - Emergency Visit Emergency Visit: Yes ED Registration Date: 06/27/15 Care time: The patient presented to the Emergency Department on the above date and was hospitalized for further evaluation of their emergent condition. - New Patient This patient is new to me today: Yes Date on this admission: 02/13/16 - Critical Care Critical Care patient: No
[2016-02-13] MEDS: LACTOBACILLUS ACIDOPHILUS 1 EACH TAB (FP) PO SCH (11:18)
[2016-02-13] MEDS: MULTIVITAMINS THERAPEUTIC GT SCH (11:19)
[2016-02-13] MEDS: METOPROLOL TARTRATE 50 MG TABLET (FP) GT SCH ×2 (11:19→22:16)
[2016-02-13] MEDS: amLODIPine BESYLATE 10 MG TABLET (FP) GT SCH (11:19)
[2016-02-13] MEDS: PANTOPRAZOLE SOD 40 MG SUSPENSION PACKET GT SCH (11:19)
[2016-02-13] MEDS: LISINOPRIL 20 MG TABLET (FP) GT SCH (11:19)
[2016-02-13] MEDS: guaiFENesin/D-METHORPHAN HB 10 ML UNIT-DOSE CUPS PO PRN (11:20)
[2016-02-13] MEDS: INSULIN DETEMIR 100 UNITS/ML MDV SQ SCH (22:16)
[2016-02-14] MEDS: INSULIN SLIDING SCALE (NOVOLOG) 1 VIAL SQ SCH ×2 (06:26→17:44)
[2016-02-14] MEDS: METOPROLOL TARTRATE 50 MG TABLET (FP) GT SCH ×2 (11:33→22:09)
[2016-02-14] MEDS: LISINOPRIL 20 MG TABLET (FP) GT SCH (11:34)
[2016-02-14] MEDS: PANTOPRAZOLE SOD 40 MG SUSPENSION PACKET GT SCH (11:34)
[2016-02-14] MEDS: amLODIPine BESYLATE 10 MG TABLET (FP) GT SCH (11:34)
[2016-02-14] MEDS: LACTOBACILLUS ACIDOPHILUS 1 EACH TAB (FP) PO SCH (11:34)
[2016-02-14] MEDS: AMINO ACIDS/PROTEIN HYDROLYS SUGAR-FREE 30 ML PACKET PO SCH ×2 (11:34→17:44)
[2016-02-14] MEDS: MULTIVITAMINS THERAPEUTIC GT SCH (11:35)
--- NOTE | 2016-02-14 12:31 | PN ---
Progress Note (short form) - Note Progress Note: No new complains, lying in bed just stares at you. Vital Signs Temperature 98.2 F 02/14/16 06:00 Pulse Rate 95 H 02/14/16 11:46 Respiratory Rate 20 02/14/16 06:00 Blood Pressure 142/86 02/14/16 06:00 O2 Sat by Pulse Oximetry (%) 98 02/14/16 11:46 SKIN: Warm, dry, normal turgor, no rashes or lesions noted GENERAL: The patient has periods of somnolence, periods of wakefulness. Awake today EYES: Pupils equal, round and reactive to light, sclera anicteric, conjunctiva clear. ENT: Ears normal, nares patent. Moist mucous membranes. Trach collar, thin, white/sharma secretions. NECK: Normal range of motion, supple without lymphadenopathy, JVD, or masses. LUNGS: Coarse breath sounds. No wheezes, and no crackles. HEART: Regular rate and rhythm, normal S1 and S2 without murmur, rub or gallop. ABDOMEN: Soft, nontender, normoactive bowel sounds. No guarding, no rebound. EXTREMITIES: 2+ pulses, warm, well-perfused, no edema. NEUROLOGICAL: Unable to assess. SKIN: Wounds not visualized today. CBCD WBC 13.7 K/mm3 (4.0-10.0) H 02/11/16 17:10 RBC 3.37 M/mm3 (4.00-5.60) L 02/11/16 17:10 Hgb 9.5 GM/dL (11.7-16.9) L 02/11/16 17:10 Hct 29.6 % (35.4-49) L 02/11/16 17:10 MCV 87.8 fl (80-96) 02/11/16 17:10 MCHC 32.3 g/dl (32.0-35.9) 02/11/16 17:10 RDW 15.0 % (11.9-15.9) 02/11/16 17:10 Plt Count 401 K/MM3 (134-434) D 02/11/16 17:10 MPV 7.9 fl (7.5-11.1) 02/11/16 17:10 CMP Sodium 142 mmol/L (136-145) 02/12/16 08:00 Potassium 4.0 mmol/L (3.5-5.1) 02/12/16 08:00 Chloride 102 mmol/L (98-107) 02/12/16 08:00 Carbon Dioxide 33 mmol/L (21-32) H 02/12/16 08:00 Anion Gap 7 (8-16) L 02/12/16 08:00 BUN 26 mg/dL (7-18) H D 02/12/16 08:00 Creatinine 0.8 mg/dL (0.7-1.3) 02/12/16 08:00 Creat Clearance w eGFR > 60 (>60) 02/12/16 08:00 Random Glucose 139 mg/dL (74-106) H D 02/12/16 08:00 Calcium 9.8 mg/dL (8.5-10.1) 02/12/16 08:00 Total Bilirubin 0.2 mg/dL (0.2-1.0) D 02/12/16 08:00 AST 13 U/L (15-37) L 02/12/16 08:00 ALT 21 U/L (12-78) 02/12/16 08:00 Alkaline Phosphatase 97 U/L (45-117) 02/12/16 08:00 Total Protein 7.5 g/dl (6.4-8.2) 02/12/16 08:00 Albumin 3.0 g/dl (3.4-5.0) L 02/12/16 08:00 CARDIAC ENZYMES Creatine Kinase 62 IU/L (38-174) 06/28/15 09:35 Troponin I 0.07 ng/ml (0.03-0.5) D 07/09/15 05:00 Current Medications Generic Name Dose Route Start Last Admin Trade Name Freq PRN Reason Stop Dose Admin Acetaminophen 650 mg 12/29/15 10:43 02/06/16 23:04 Tylenol Oral Solution - GT 650 mg Q6H PRN Administration FEVER Albuterol/Ipratropium 1 amp 02/02/16 18:45 Duoneb - NEB Q4H PRN SHORTNESS OF BREATH Amino Acids 30 ml 12/29/15 17:30 02/14/16 11:34 Prostat Sugar-Free Packet - PO 30 ml BID@0800,1730 KWAKU Administration Amlodipine Besylate 10 mg 12/30/15 10:00 02/14/16 11:34 Norvasc - GT 10 mg DAILY KWAKU Administration Guaifenesin 10 ml 12/29/15 10:43 02/13/16 11:20 Robitussin Dm - PO 10 ml Q6H PRN Administration COUGH Ibuprofen 200 mg 12/29/15 10:43 02/03/16 15:10 Motrin Oral Suspension - PO 200 mg Q6H PRN Administration FEVER Insulin Aspart 1 vial 01/28/16 16:30 02/14/16 06:26 Novolog Vial Sliding Scale - SQ 4 units BIDI KWAKU Administration Protocol Insulin Detemir 28 units 12/29/15 22:00 02/13/16 22:16 Levemir Vial SQ 28 units HS KWAKU Administration Lactobacillus Acidophilus 1 tab 12/30/15 10:00 02/14/16 11:34 Bacid - PO 1 tab DAILY KWAKU Administration Lisinopril 40 mg 12/30/15 10:00 02/14/16 11:34 Prinivil - GT 40 mg DAILY KWAKU Administration Metoprolol Tartrate 150 mg 12/29/15 22:00 02/14/16 11:33 Lopressor - GT 150 mg BID KWAKU Administration Metoprolol Tartrate 5 mg 12/29/15 10:43 Lopressor Injection - IVPB Q6H PRN HYPERTENSION Multivitamins 5 ml 12/30/15 10:00 02/14/16 11:35 Thera-Plus - GT 5 ml DAILY KWAKU Administration Pantoprazole Sodium 40 mg 12/30/15 10:00 02/14/16 11:34 Protonix Packets For Oral Suspension - GT 40 mg DAILY KWAKU Administration Medication Instructions Recorded Amino Acids/Protein Hydrolys 30 ml GT DAILY packet 08/09/15 [Prostat Sugar-Free Packet -] Amlodipine Besylate [Norvasc -] 10 mg GT DAILY tablet 08/09/15 Chlorhexidine Gluconate [Peridex -] 15 ml MM BID cup 08/09/15 Insulin (Levemir) [Levemir Flexpen 25 units SQ HS pen 08/09/15 -] Insulin (Novolog) [Novolog Flexpen 3 units SQ Q6HPO pen 08/09/15 -] Insulin Sliding Scale [Novolog 0 units SQ Q6HPO pen 08/09/15 Vial Sliding Scale -] Lisinopril [Prinivil] 20 mg GT DAILY tablet 08/09/15 Metoprolol Tartrate Injection 5 mg IVPB Q6H PRN #0 vial 08/09/15 [Lopressor Injection -] Metoprolol Tartrate [Lopressor -] 100 mg GT BID tablet 08/09/15 Ondansetron Injection [Zofran 4 mg IVPB Q6H PRN #0 vial 08/09/15 Injection] Pantoprazole Suspension [Protonix 40 mg GT DAILY packet 08/09/15 Packets For Oral Suspension -] Vancomycin Oral Solution 125 mg GT Q6HPO ml 08/09/15 ASSESSMENT/PLAN: 75 year old male with PMHx of HTN, IDDM, inguinal hernia who presented to the ED with diverticular bleed s/p Righ hemicolectomy with 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 PT developed HCAP and completed 7 days course of vanc/zosyn on 12/01/15. no change in his outcome, weekly labs.stable. 1. B/L DVT of lower extremities s/p IVC filter, most likely Fever is from DVT, post tylenol patient is afebrile. 2. Anoxic brain injury s/p brainstem CVAs , Mental status unchanged 3. Respiratory failure secondary to anoxic brain injury - Cont trach collar , duonebs PRN ,Albuterol neb PRN 4. HTN Cont lisinopril, metoprolol, amlodipine 5. Multiple pressure ulcers, Stage III sacrum healing - Stage II left ear healing, Turn and position q2h 6. IDDM, Levemir 28 units HS - ISS BGM ACHS 7. Slight leukocytosis most likely due to DVT FEN: - continue Tube feeds: Vital 1.5 @60ml/hr continue - PT for passive ROM CODE STATUS: DNR CODE STATUS: DNR
[2016-02-14] MEDS: INSULIN DETEMIR 100 UNITS/ML MDV SQ SCH (22:09)
[2016-02-15] MEDS: INSULIN SLIDING SCALE (NOVOLOG) 1 VIAL SQ SCH ×2 (06:33→17:45)
[2016-02-15] MEDS: AMINO ACIDS/PROTEIN HYDROLYS SUGAR-FREE 30 ML PACKET PO SCH ×2 (08:05→17:45)
[2016-02-15] MEDS: amLODIPine BESYLATE 10 MG TABLET (FP) GT SCH (10:45)
[2016-02-15] MEDS: LISINOPRIL 20 MG TABLET (FP) GT SCH (10:45)
[2016-02-15] MEDS: LACTOBACILLUS ACIDOPHILUS 1 EACH TAB (FP) PO SCH (10:45)
[2016-02-15] MEDS: PANTOPRAZOLE SOD 40 MG SUSPENSION PACKET GT SCH (10:46)
[2016-02-15] MEDS: MULTIVITAMINS THERAPEUTIC GT SCH (10:46)
[2016-02-15] MEDS: METOPROLOL TARTRATE 50 MG TABLET (FP) GT SCH ×2 (10:47→22:24)
[2016-02-15] MEDS: ALBUTEROL SO4 2.5/IPRATROPIUM 0.5 INH SOL 3 ML VIAL.NEB. NEB PRN (12:09)
--- NOTE | 2016-02-15 19:44 | PN ---
Progress Note (short form) - Note Progress Note: No new changes. Vital Signs Temperature 99.4 F 02/15/16 14:40 Pulse Rate 92 H 02/15/16 14:40 Respiratory Rate 22 02/15/16 14:40 Blood Pressure 158/84 02/15/16 14:40 O2 Sat by Pulse Oximetry (%) 97 02/15/16 12:12 SKIN: Warm, dry, normal turgor, no rashes or lesions noted GENERAL: The patient has periods of somnolence, periods of wakefulness. Awake today EYES: Pupils equal, round and reactive to light, sclera anicteric, conjunctiva clear. ENT: Ears normal, nares patent. Moist mucous membranes. Trach collar, thin, white/sharma secretions. NECK: Normal range of motion, supple without lymphadenopathy, JVD, or masses. LUNGS: Coarse breath sounds. No wheezes, and no crackles. HEART: Regular rate and rhythm, normal S1 and S2 without murmur, rub or gallop. ABDOMEN: Soft, nontender, normoactive bowel sounds. No guarding, no rebound. EXTREMITIES: 2+ pulses, warm, well-perfused, no edema. NEUROLOGICAL: Unable to assess. SKIN: Wounds not visualized today. CBCD WBC 13.7 K/mm3 (4.0-10.0) H 02/11/16 17:10 RBC 3.37 M/mm3 (4.00-5.60) L 02/11/16 17:10 Hgb 9.5 GM/dL (11.7-16.9) L 02/11/16 17:10 Hct 29.6 % (35.4-49) L 02/11/16 17:10 MCV 87.8 fl (80-96) 02/11/16 17:10 MCHC 32.3 g/dl (32.0-35.9) 02/11/16 17:10 RDW 15.0 % (11.9-15.9) 02/11/16 17:10 Plt Count 401 K/MM3 (134-434) D 02/11/16 17:10 MPV 7.9 fl (7.5-11.1) 02/11/16 17:10 CMP Sodium 142 mmol/L (136-145) 02/12/16 08:00 Potassium 4.0 mmol/L (3.5-5.1) 02/12/16 08:00 Chloride 102 mmol/L (98-107) 02/12/16 08:00 Carbon Dioxide 33 mmol/L (21-32) H 02/12/16 08:00 Anion Gap 7 (8-16) L 02/12/16 08:00 BUN 26 mg/dL (7-18) H D 02/12/16 08:00 Creatinine 0.8 mg/dL (0.7-1.3) 02/12/16 08:00 Creat Clearance w eGFR > 60 (>60) 02/12/16 08:00 Random Glucose 139 mg/dL (74-106) H D 02/12/16 08:00 Calcium 9.8 mg/dL (8.5-10.1) 02/12/16 08:00 Total Bilirubin 0.2 mg/dL (0.2-1.0) D 02/12/16 08:00 AST 13 U/L (15-37) L 02/12/16 08:00 ALT 21 U/L (12-78) 02/12/16 08:00 Alkaline Phosphatase 97 U/L (45-117) 02/12/16 08:00 Total Protein 7.5 g/dl (6.4-8.2) 02/12/16 08:00 Albumin 3.0 g/dl (3.4-5.0) L 02/12/16 08:00 CARDIAC ENZYMES Creatine Kinase 62 IU/L (38-174) 06/28/15 09:35 Troponin I 0.07 ng/ml (0.03-0.5) D 07/09/15 05:00 Current Medications Generic Name Dose Route Start Last Admin Trade Name Freq PRN Reason Stop Dose Admin Acetaminophen 650 mg 12/29/15 10:43 02/06/16 23:04 Tylenol Oral Solution - GT 650 mg Q6H PRN Administration FEVER Albuterol/Ipratropium 1 amp 02/02/16 18:45 02/15/16 12:09 Duoneb - NEB 1 amp Q4H PRN Administration SHORTNESS OF BREATH Amino Acids 30 ml 12/29/15 17:30 02/15/16 17:45 Prostat Sugar-Free Packet - PO 30 ml BID@0800,1730 KWAKU Administration Amlodipine Besylate 10 mg 12/30/15 10:00 02/15/16 10:45 Norvasc - GT 10 mg DAILY KWAKU Administration Guaifenesin 10 ml 12/29/15 10:43 02/13/16 11:20 Robitussin Dm - PO 10 ml Q6H PRN Administration COUGH Ibuprofen 200 mg 12/29/15 10:43 02/03/16 15:10 Motrin Oral Suspension - PO 200 mg Q6H PRN Administration FEVER Insulin Aspart 1 vial 01/28/16 16:30 02/15/16 17:45 Novolog Vial Sliding Scale - SQ 4 units BIDI KWAKU Administration Protocol Insulin Detemir 28 units 12/29/15 22:00 02/14/16 22:09 Levemir Vial SQ 28 units HS KWAKU Administration Lactobacillus Acidophilus 1 tab 12/30/15 10:00 02/15/16 10:45 Bacid - PO 1 tab DAILY KWAKU Administration Lisinopril 40 mg 12/30/15 10:00 02/15/16 10:45 Prinivil - GT 40 mg DAILY KWAKU Administration Metoprolol Tartrate 150 mg 12/29/15 22:00 02/15/16 10:47 Lopressor - GT 150 mg BID KWAKU Administration Metoprolol Tartrate 5 mg 12/29/15 10:43 Lopressor Injection - IVPB Q6H PRN HYPERTENSION Multivitamins 5 ml 12/30/15 10:00 02/15/16 10:46 Thera-Plus - GT 5 ml DAILY KWAKU Administration Pantoprazole Sodium 40 mg 12/30/15 10:00 02/15/16 10:46 Protonix Packets For Oral Suspension - GT 40 mg DAILY KWAKU Administration ASSESSMENT/PLAN: 75 year old male with PMHx of HTN, IDDM, inguinal hernia who presented to the ED with diverticular bleed s/p Righ hemicolectomy with 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 PT developed HCAP and completed 7 days course of vanc/zosyn on 12/01/15. no change in his outcome, weekly labs.stable. 1. B/L DVT of lower extremities s/p IVC filter, most likely Fever is from DVT, post tylenol patient is afebrile. 2. Anoxic brain injury s/p brainstem CVAs , Mental status unchanged 3. Respiratory failure secondary to anoxic brain injury - Cont trach collar , duonebs PRN ,Albuterol neb PRN 4. HTN Cont lisinopril, metoprolol, amlodipine 5. Multiple pressure ulcers, Stage III sacrum healing - Stage II left ear healing, Turn and position q2h 6. IDDM, Levemir 28 units HS - ISS BGM ACHS 7. Slight leukocytosis most likely due to DVT FEN: - continue Tube feeds: Vital 1.5 @60ml/hr continue - PT for passive ROM CODE STATUS: DNR
[2016-02-15] MEDS: INSULIN DETEMIR 100 UNITS/ML MDV SQ SCH (22:24)
[2016-02-16] MEDS: INSULIN SLIDING SCALE (NOVOLOG) 1 VIAL SQ SCH ×2 (06:21→16:37)
[2016-02-16] MEDS: AMINO ACIDS/PROTEIN HYDROLYS SUGAR-FREE 30 ML PACKET PO SCH ×2 (08:24→16:38)
[2016-02-16] MEDS: METOPROLOL TARTRATE 50 MG TABLET (FP) GT SCH ×2 (10:32→23:44)
[2016-02-16] MEDS: LACTOBACILLUS ACIDOPHILUS 1 EACH TAB (FP) PO SCH (10:32)
[2016-02-16] MEDS: amLODIPine BESYLATE 10 MG TABLET (FP) GT SCH (10:33)
[2016-02-16] MEDS: PANTOPRAZOLE SOD 40 MG SUSPENSION PACKET GT SCH (10:33)
[2016-02-16] MEDS: MULTIVITAMINS THERAPEUTIC GT SCH (10:35)
[2016-02-16] MEDS: LISINOPRIL 20 MG TABLET (FP) GT SCH (11:57)
[2016-02-16] MEDS: ACETAMINOPHEN 650 MG/20.3 ML ORAL SOLUTION (CUPS) GT PRN (12:07)
--- NOTE | 2016-02-16 16:28 | PN ---
Progress Note (short form) - Note Progress Note: Subjective: unable to obtain hx. no events over note Objective: Last Vital Signs Temp Pulse Resp BP Pulse Ox 99.6 F 96 H 22 157/90 97 02/16/16 14:39 02/16/16 14:39 02/16/16 14:39 02/16/16 14:39 02/16/16 11:30 Physical Exam: NAD. sleeping CV: RRR, no MRG lungs: clear lungs ext: no edema on legs. abd: soft, NT, ND , nl BS. PEG in place with intact skin . Laboratory Results - last 24 hr 02/15/16 02/15/16 02/16/16 16:38 16:40 06:19 POC Glucometer 230 287 218 Assessment/Plan: 75 yo M with PMH HTN, DM, inguinal hernia a/w BRBPR and melena with multiple syncopal episodes. Dx with persistent diverticular bleed with R hemicolectomy, course complicated with CVA now in the ICU unresponsive and anoxic brain injury had tracheostomy on 07/23. also s/p PEG placement and iliac artery bleed s /p embolization 09/03/15. received a course of ABx for HCAp in Oct/nov 1-fever : resolved 2- b/l DVTS s/p IVC filter 3- GI bleed: resolved 4- anoxic brain injury 5- s/p Trach 07/23. s/p PEG 6- DM . 7- HTN Plan : - cont antihypertensive meds - cont insulin - change TF to glucerna , cont free water - check CBC in am - SCDs
[2016-02-16] MEDS: INSULIN DETEMIR 100 UNITS/ML MDV SQ SCH (23:44)
[2016-02-17] MEDS: INSULIN SLIDING SCALE (NOVOLOG) 1 VIAL SQ SCH ×2 (05:59→18:02)
[2016-02-17] MEDS: AMINO ACIDS/PROTEIN HYDROLYS SUGAR-FREE 30 ML PACKET PO SCH ×2 (07:59→18:03)
[2016-02-17 08:23] LABS: BASOPHIL 0.9 % (0-2.0); EOSINOPHIL 2.9 % (0-4.5); MCH 28.4 pg (25.7-33.7); MCHC 33.1 g/dl (32.0-35.9); MEAN PLT VOLUME 7.9 fl (7.5-11.1); NEUTROPHILS 70.9 % (42.8-82.8); PLATELET COUNT 330 K/MM3 (134-434); RDW 15.2 % (11.9-15.9); WHITE BLOOD COUNT 10.7 K/mm3 (4.0-10.0)
[2016-02-17] MEDS: amLODIPine BESYLATE 10 MG TABLET (FP) GT SCH (09:42)
[2016-02-17] MEDS: LACTOBACILLUS ACIDOPHILUS 1 EACH TAB (FP) PO SCH (09:42)
[2016-02-17] MEDS: LISINOPRIL 20 MG TABLET (FP) GT SCH (09:43)
[2016-02-17] MEDS: METOPROLOL TARTRATE 50 MG TABLET (FP) GT SCH ×2 (09:43→21:54)
[2016-02-17] MEDS: PANTOPRAZOLE SOD 40 MG SUSPENSION PACKET GT SCH (09:43)
[2016-02-17] MEDS: MULTIVITAMINS THERAPEUTIC GT SCH (15:04)
--- NOTE | 2016-02-17 16:07 | PN ---
Progress Note (short form) - Note Progress Note: Subjective: unable to obtain hx. no events over night Objective: Last Vital Signs Temp Pulse Resp BP Pulse Ox 98.9 F 84 22 149/86 95 02/17/16 14:26 02/17/16 14:26 02/17/16 14:26 02/17/16 14:26 02/17/16 14:16 Physical Exam: NAD. sleeping CV: RRR, no MRG lungs: clear lungs ext: no edema on legs. abd: soft, NT, ND , nl BS. PEG in place with intact skin . Laboratory Results - last 24 hr 02/16/16 02/17/16 02/17/16 16:35 05:42 07:30 WBC 10.7 H RBC 3.43 L Hgb 9.7 L Hct 29.5 L MCV 86.0 MCHC 33.1 RDW 15.2 Plt Count 330 MPV 7.9 Neutrophils % 70.9 Lymphocytes % 19.0 Monocytes % 6.3 Eosinophils % 2.9 Basophils % 0.9 POC Glucometer 167 194 Assessment/Plan: 75 yo M with PMH HTN, DM, inguinal hernia a/w BRBPR and melena with multiple syncopal episodes. Dx with persistent diverticular bleed with R hemicolectomy, course complicated with CVA now in the ICU unresponsive and anoxic brain injury had tracheostomy on 07/23. also s/p PEG placement and iliac artery bleed s /p embolization 09/03/15. received a course of ABx for HCAp in Oct/nov 1-fever : resolved 2- b/l DVTS s/p IVC filter 3- GI bleed: resolved 4- anoxic brain injury 5- s/p Trach 07/23. s/p PEG 6- DM . 7- HTN Plan : - cont antihypertensive meds - cont insulin - cont glucerna , cont free water - CBC reviewed. leukocytosis improved - SCDs
[2016-02-17] MEDS: INSULIN DETEMIR 100 UNITS/ML MDV SQ SCH (21:54)
[2016-02-18] MEDS: INSULIN SLIDING SCALE (NOVOLOG) 1 VIAL SQ SCH ×2 (06:23→16:24)
[2016-02-18] MEDS: AMINO ACIDS/PROTEIN HYDROLYS SUGAR-FREE 30 ML PACKET PO SCH ×2 (09:00→17:40)
[2016-02-18] MEDS: PANTOPRAZOLE SOD 40 MG SUSPENSION PACKET GT SCH (09:59)
[2016-02-18] MEDS: LACTOBACILLUS ACIDOPHILUS 1 EACH TAB (FP) PO SCH (10:00)
[2016-02-18] MEDS: METOPROLOL TARTRATE 50 MG TABLET (FP) GT SCH ×2 (10:00→22:37)
[2016-02-18] MEDS: LISINOPRIL 20 MG TABLET (FP) GT SCH (10:00)
[2016-02-18] MEDS: amLODIPine BESYLATE 10 MG TABLET (FP) GT SCH (10:00)
[2016-02-18] MEDS: MULTIVITAMINS THERAPEUTIC GT SCH (10:01)
[2016-02-18] MEDS: ALBUTEROL SO4 2.5/IPRATROPIUM 0.5 INH SOL 3 ML VIAL.NEB. NEB PRN (11:33)
--- NOTE | 2016-02-18 16:23 | PN ---
Progress Note (short form) - Note Progress Note: Subjective: unable to obtain hx. no events over night Objective: Last Vital Signs Temp Pulse Resp BP Pulse Ox 99.8 F H 98 H 20 155/98 98 02/18/16 14:26 02/18/16 14:26 02/18/16 14:26 02/18/16 08:54 02/18/16 11:30 Physical Exam: NAD. sleeping CV: RRR, no MRG lungs: clear lungs ext: no edema on legs. abd: soft, NT, ND , nl BS. PEG in place with intact skin . Laboratory Results - last 24 hr 02/17/16 02/17/16 02/18/16 16:56 21:47 05:34 POC Glucometer 128 124 154 Assessment/Plan: 75 yo M with PMH HTN, DM, inguinal hernia a/w BRBPR and melena with multiple syncopal episodes. Dx with persistent diverticular bleed with R hemicolectomy, course complicated with CVA now in the ICU unresponsive and anoxic brain injury had tracheostomy on 07/23. also s/p PEG placement and iliac artery bleed s /p embolization 09/03/15. received a course of ABx for HCAp in Oct/nov 1-fever : resolved 2- b/l DVTS s/p IVC filter 3- GI bleed: resolved 4- anoxic brain injury 5- s/p Trach 07/23. s/p PEG 6- DM . 7- HTN Plan : - cont antihypertensive meds - cont insulin - cont glucerna , cont free water - SCDs
[2016-02-18] MEDS: INSULIN DETEMIR 100 UNITS/ML MDV SQ SCH (22:36)
[2016-02-19] MEDS: INSULIN SLIDING SCALE (NOVOLOG) 1 VIAL SQ SCH ×2 (06:49→17:21)
[2016-02-19] MEDS: AMINO ACIDS/PROTEIN HYDROLYS SUGAR-FREE 30 ML PACKET PO SCH ×2 (08:00→17:44)
[2016-02-19] MEDS: LISINOPRIL 20 MG TABLET (FP) GT SCH (09:59)
[2016-02-19] MEDS: LACTOBACILLUS ACIDOPHILUS 1 EACH TAB (FP) PO SCH (10:00)
[2016-02-19] MEDS: METOPROLOL TARTRATE 50 MG TABLET (FP) GT SCH ×2 (10:00→21:43)
[2016-02-19] MEDS: MULTIVITAMINS THERAPEUTIC GT SCH (10:00)
[2016-02-19] MEDS: amLODIPine BESYLATE 10 MG TABLET (FP) GT SCH (10:00)
[2016-02-19] MEDS: PANTOPRAZOLE SOD 40 MG SUSPENSION PACKET GT SCH (10:00)
--- NOTE | 2016-02-19 17:06 | PN ---
Progress Note (short form) - Note Progress Note: Subjective: unable to obtain hx. no events over night Objective: Last Vital Signs Temp Pulse Resp BP Pulse Ox 98.7 F 88 20 144/84 96 02/19/16 15:40 02/19/16 15:40 02/19/16 15:40 02/19/16 15:40 02/19/16 10:25 Physical Exam: NAD. sleeping , secretions coming out of trach CV: RRR, no MRG lungs: slightly course breath sounds ext: no edema on legs. abd: soft, NT, ND , nl BS. PEG in place with intact skin . Laboratory Results - last 24 hr 02/18/16 02/19/16 22:35 05:22 POC Glucometer 130 117 Assessment/Plan: 75 yo M with PMH HTN, DM, inguinal hernia a/w BRBPR and melena with multiple syncopal episodes. Dx with persistent diverticular bleed with R hemicolectomy, course complicated with CVA now in the ICU unresponsive and anoxic brain injury had tracheostomy on 07/23. also s/p PEG placement and iliac artery bleed s /p embolization 09/03/15. received a course of ABx for HCAp in Oct/nov 1-fever : resolved 2- b/l DVTS s/p IVC filter 3- GI bleed: resolved 4- anoxic brain injury 5- s/p Trach 07/23. s/p PEG 6- DM . 7- HTN Plan: - cont antihypertensive meds - cont insulin - cont glucerna , cont free water ( with the feeding ) - TEds ordered
[2016-02-19] MEDS: INSULIN DETEMIR 100 UNITS/ML MDV SQ SCH (21:43)
[2016-02-19] MEDS: ALBUTEROL SO4 2.5/IPRATROPIUM 0.5 INH SOL 3 ML VIAL.NEB. NEB PRN (22:40)
[2016-02-20] MEDS: INSULIN SLIDING SCALE (NOVOLOG) 1 VIAL SQ SCH ×2 (06:23→16:45)
[2016-02-20] MEDS: ALBUTEROL SO4 2.5/IPRATROPIUM 0.5 INH SOL 3 ML VIAL.NEB. NEB PRN (06:45)
[2016-02-20] MEDS: AMINO ACIDS/PROTEIN HYDROLYS SUGAR-FREE 30 ML PACKET PO SCH ×2 (08:00→17:49)
[2016-02-20] MEDS: LISINOPRIL 20 MG TABLET (FP) GT SCH (10:47)
[2016-02-20] MEDS: LACTOBACILLUS ACIDOPHILUS 1 EACH TAB (FP) PO SCH (10:47)
[2016-02-20] MEDS: PANTOPRAZOLE SOD 40 MG SUSPENSION PACKET GT SCH (10:48)
[2016-02-20] MEDS: amLODIPine BESYLATE 10 MG TABLET (FP) GT SCH (10:48)
[2016-02-20] MEDS: METOPROLOL TARTRATE 50 MG TABLET (FP) GT SCH ×2 (10:48→22:04)
[2016-02-20] MEDS: MULTIVITAMINS THERAPEUTIC GT SCH (10:48)
--- NOTE | 2016-02-20 15:10 | PN ---
Progress Note (short form) - Note Progress Note: Subjective: unable to obtain hx. no events over night Objective: Last Vital Signs Temp Pulse Resp BP Pulse Ox 98.7 F 88 20 144/84 96 02/19/16 15:40 02/19/16 15:40 02/19/16 15:40 02/19/16 15:40 02/19/16 10:25 Physical Exam: NAD. sleeping , secretions coming out of trach CV: RRR, no MRG lungs: slightly course breath sounds ext: no edema on legs. abd: soft, NT, ND , nl BS. PEG in place with intact skin . Laboratory Results - last 24 hr 02/18/16 02/19/16 22:35 05:22 POC Glucometer 130 117 Assessment/Plan: 75 yo M with PMH HTN, DM, inguinal hernia a/w BRBPR and melena with multiple syncopal episodes. Dx with persistent diverticular bleed with R hemicolectomy, course complicated with CVA now in the ICU unresponsive and anoxic brain injury had tracheostomy on 07/23. also s/p PEG placement and iliac artery bleed s /p embolization 09/03/15. received a course of ABx for HCAp in Oct/nov 1- fever : resolved 2- b/l DVTS s/p IVC filter 3- GI bleed: resolved 4- anoxic brain injury 5- s/p Trach 07/23. s/p PEG 6- DM . 7- HTN Plan: - cont antihypertensive meds - cont insulin - cont glucerna , cont free water ( with the feeding ) - TEds ordered
[2016-02-20] MEDS: INSULIN DETEMIR 100 UNITS/ML MDV SQ SCH (22:03)
[2016-02-21] MEDS: LACTOBACILLUS ACIDOPHILUS 1 EACH TAB (FP) PO SCH (09:28)
[2016-02-21] MEDS: PANTOPRAZOLE SOD 40 MG SUSPENSION PACKET GT SCH (09:29)
[2016-02-21] MEDS: LISINOPRIL 20 MG TABLET (FP) GT SCH (09:29)
[2016-02-21] MEDS: amLODIPine BESYLATE 10 MG TABLET (FP) GT SCH (09:30)
[2016-02-21] MEDS: AMINO ACIDS/PROTEIN HYDROLYS SUGAR-FREE 30 ML PACKET PO SCH ×2 (09:30→17:50)
[2016-02-21] MEDS: METOPROLOL TARTRATE 50 MG TABLET (FP) GT SCH ×2 (09:31→22:25)
[2016-02-21] MEDS: ACETAMINOPHEN 650 MG/20.3 ML ORAL SOLUTION (CUPS) GT PRN (09:32)
[2016-02-21] MEDS: MULTIVITAMINS THERAPEUTIC GT SCH ×2 (10:54→13:53)
--- NOTE | 2016-02-21 16:37 | PN ---
Progress Note (short form) - Note Progress Note: Subjective: unable to obtain hx. no events over night . had fever this am Objective: Last Vital Signs Temp Pulse Resp BP Pulse Ox 99.6 F 89 22 146/56 100 02/21/16 15:11 02/21/16 15:11 02/21/16 15:11 02/21/16 15:11 02/21/16 09:00 Physical Exam: NAD. eyes open CV: RRR, no MRG lungs: slightly course breath sounds ext: no edema on legs. abd: soft, NT, ND , nl BS. PEG in place with intact skin . L Laboratory Results - last 24 hr 02/20/16 02/21/16 02/21/16 16:44 05:58 10:57 POC Glucometer 144 185 177 Assessment/Plan: 75 yo M with PMH HTN, DM, inguinal hernia a/w BRBPR and melena with multiple syncopal episodes. Dx with persistent diverticular bleed with R hemicolectomy, course complicated with CVA now in the ICU unresponsive and anoxic brain injury had tracheostomy on 07/23. also s/p PEG placement and iliac artery bleed s /p embolization 09/03/15. received a course of ABx for HCAp in Oct/nov 1- fever : recurred x1 today 2- b/l DVTS s/p IVC filter 3- GI bleed: resolved 4- anoxic brain injury 5- s/p Trach 07/23. s/p PEG 6- DM . 7- HTN Plan: - will monitor fever for tody . CBC in am . hold off culture if fever does not recur - cont antihypertensive meds - cont insulin - cont glucerna , cont free water ( with the feeding ) - TEds
[2016-02-21] MEDS: INSULIN SLIDING SCALE (NOVOLOG) 1 VIAL SQ SCH (17:49)
[2016-02-21] MEDS: INSULIN DETEMIR 100 UNITS/ML MDV SQ SCH (22:25)
[2016-02-22] MEDS: INSULIN SLIDING SCALE (NOVOLOG) 1 VIAL SQ SCH ×2 (06:24→17:01)
[2016-02-22 08:11] LABS: BASOPHIL 0.9 % (0-2.0); EOSINOPHIL 2.9 % (0-4.5); MCH 27.9 pg (25.7-33.7); MCHC 32.4 g/dl (32.0-35.9); MEAN PLT VOLUME 8.9 fl (7.5-11.1); NEUTROPHILS 71.4 % (42.8-82.8); PLATELET COUNT 255 K/MM3 (134-434); RDW 15.5 % (11.9-15.9)
[2016-02-22] MEDS: PANTOPRAZOLE SOD 40 MG SUSPENSION PACKET GT SCH (09:22)
[2016-02-22] MEDS: LISINOPRIL 20 MG TABLET (FP) GT SCH (09:23)
[2016-02-22] MEDS: METOPROLOL TARTRATE 50 MG TABLET (FP) GT SCH ×2 (09:23→22:16)
[2016-02-22] MEDS: LACTOBACILLUS ACIDOPHILUS 1 EACH TAB (FP) PO SCH (09:23)
[2016-02-22] MEDS: AMINO ACIDS/PROTEIN HYDROLYS SUGAR-FREE 30 ML PACKET PO SCH ×2 (09:24→17:05)
[2016-02-22] MEDS: amLODIPine BESYLATE 10 MG TABLET (FP) GT SCH (09:24)
[2016-02-22] MEDS: MULTIVITAMINS THERAPEUTIC GT SCH (09:25)
--- NOTE | 2016-02-22 16:58 | PN ---
Progress Note (short form) - Note Progress Note: Subjective: unable to obtain hx. no events over night . had fever yesterday Objective: Last Vital Signs Temp Pulse Resp BP Pulse Ox 99.6 F 89 22 146/56 100 02/21/16 15:11 02/21/16 15:11 02/21/16 15:11 02/21/16 15:11 02/21/16 09:00 Physical Exam: NAD. eyes open CV: RRR, no MRG lungs: slightly course breath sounds ext: no edema on legs. abd: soft, NT, ND , nl BS. PEG in place with intact skin . Laboratory Results - last 24 hr 02/21/16 02/21/16 02/22/16 16:45 22:24 06:22 WBC RBC Hgb Hct MCV MCHC RDW Plt Count MPV Neutrophils % Lymphocytes % Monocytes % Eosinophils % Basophils % POC Glucometer 151 164 155 02/22/16 02/22/16 07:00 16:32 WBC 13.0 H RBC 3.62 L Hgb 10.1 L Hct 31.2 L MCV 86.0 MCHC 32.4 RDW 15.5 Plt Count 255 D MPV 8.9 D Neutrophils % 71.4 Lymphocytes % 20.2 Monocytes % 4.6 Eosinophils % 2.9 Basophils % 0.9 POC Glucometer 150 Assessment/Plan: 75 yo M with PMH HTN, DM, inguinal hernia a/w BRBPR and melena with multiple syncopal episodes. Dx with persistent diverticular bleed with R hemicolectomy, course complicated with CVA now in the ICU unresponsive and anoxic brain injury had tracheostomy on 07/23. also s/p PEG placement and iliac artery bleed s /p embolization 09/03/15. received a course of ABx for HCAp in Oct/nov 1- fever: yesterday , resolved today 2- b/l DVTS s/p IVC filter 3- GI bleed: resolved 4- anoxic brain injury 5- s/p Trach 07/23. s/p PEG 6- DM . 7- HTN 8- leukocytosis Plan: - monitor for fever and leukocytosis . if fever recur will reculture - cont antihypertensive meds - cont insulin - cont glucerna , cont free water ( with the feeding ) - TEds - CBC in AM
[2016-02-22] MEDS: ACETAMINOPHEN 650 MG/20.3 ML ORAL SOLUTION (CUPS) GT PRN (18:47)
[2016-02-22] MEDS: INSULIN DETEMIR 100 UNITS/ML MDV SQ SCH (22:15)
[2016-02-23] MEDS: INSULIN SLIDING SCALE (NOVOLOG) 1 VIAL SQ SCH ×2 (06:27→17:11)
[2016-02-23] MEDS: AMINO ACIDS/PROTEIN HYDROLYS SUGAR-FREE 30 ML PACKET PO SCH ×2 (08:00→17:11)
[2016-02-23 08:46] LABS: BASOPHIL 0.6 % (0-2.0); EOSINOPHIL 3.5 % (0-4.5); MCH 27.8 pg (25.7-33.7); MCHC 32.3 g/dl (32.0-35.9); MEAN PLT VOLUME 8.9 fl (7.5-11.1); NEUTROPHILS 73.1 % (42.8-82.8); PLATELET COUNT 242 K/MM3 (134-434); RDW 15.4 % (11.9-15.9); WHITE BLOOD COUNT 12.7 K/mm3 (4.0-10.0)
[2016-02-23] MEDS: LACTOBACILLUS ACIDOPHILUS 1 EACH TAB (FP) PO SCH (11:45)
[2016-02-23] MEDS: LISINOPRIL 20 MG TABLET (FP) GT SCH (11:46)
[2016-02-23] MEDS: METOPROLOL TARTRATE 50 MG TABLET (FP) GT SCH ×2 (11:46→22:30)
[2016-02-23] MEDS: amLODIPine BESYLATE 10 MG TABLET (FP) GT SCH (11:46)
[2016-02-23] MEDS: MULTIVITAMINS THERAPEUTIC GT SCH (11:47)
[2016-02-23] MEDS: PANTOPRAZOLE SOD 40 MG SUSPENSION PACKET GT SCH (11:47)
[2016-02-23] MEDS: IBUPROFEN 100 MG/5 ML UNIT DOSE CUPS PO PRN (17:11)
--- NOTE | 2016-02-23 17:18 | PN ---
Progress Note (short form) - Note Progress Note: Patient continued to have fever today, 101.7. no other new findings or complain. Vital Signs Temperature 98.8 F 02/23/16 14:21 Pulse Rate 85 02/23/16 14:21 Respiratory Rate 20 02/23/16 14:21 Blood Pressure 138/85 02/23/16 14:21 O2 Sat by Pulse Oximetry (%) 97 02/23/16 10:20 SKIN: Warm, dry, normal turgor, no rashes or lesions noted GENERAL: The patient has periods of somnolence, periods of wakefulness. Awake today EYES: Pupils equal, round and reactive to light, sclera anicteric, conjunctiva clear. ENT: Ears normal, Moist mucous membranes. Trach collar, thin, white/sharma secretions. NECK: Normal range of motion, supple without lymphadenopathy, JVD, or masses. LUNGS: Coarse breath sounds. No wheezes, and no crackles. HEART: Regular rate and rhythm, normal S1 and S2 without murmur, rub or gallop. ABDOMEN: Soft, nontender, normoactive bowel sounds. No guarding, no rebound. EXTREMITIES: 2+ pulses, warm, well-perfused, no edema. NEUROLOGICAL: Unable to assess. SKIN: Wounds not visualized today. CBCD WBC 12.7 K/mm3 (4.0-10.0) H 02/23/16 08:00 RBC 3.48 M/mm3 (4.00-5.60) L 02/23/16 08:00 Hgb 9.7 GM/dL (11.7-16.9) L 02/23/16 08:00 Hct 30.0 % (35.4-49) L 02/23/16 08:00 MCV 86.0 fl (80-96) 02/23/16 08:00 MCHC 32.3 g/dl (32.0-35.9) 02/23/16 08:00 RDW 15.4 % (11.9-15.9) 02/23/16 08:00 Plt Count 242 K/MM3 (134-434) 02/23/16 08:00 MPV 8.9 fl (7.5-11.1) 02/23/16 08:00 CMP Sodium 142 mmol/L (136-145) 02/12/16 08:00 Potassium 4.0 mmol/L (3.5-5.1) 02/12/16 08:00 Chloride 102 mmol/L (98-107) 02/12/16 08:00 Carbon Dioxide 33 mmol/L (21-32) H 02/12/16 08:00 Anion Gap 7 (8-16) L 02/12/16 08:00 BUN 26 mg/dL (7-18) H D 02/12/16 08:00 Creatinine 0.8 mg/dL (0.7-1.3) 02/12/16 08:00 Creat Clearance w eGFR > 60 (>60) 02/12/16 08:00 Random Glucose 139 mg/dL (74-106) H D 02/12/16 08:00 Calcium 9.8 mg/dL (8.5-10.1) 02/12/16 08:00 Total Bilirubin 0.2 mg/dL (0.2-1.0) D 02/12/16 08:00 AST 13 U/L (15-37) L 02/12/16 08:00 ALT 21 U/L (12-78) 02/12/16 08:00 Alkaline Phosphatase 97 U/L (45-117) 02/12/16 08:00 Total Protein 7.5 g/dl (6.4-8.2) 02/12/16 08:00 Albumin 3.0 g/dl (3.4-5.0) L 02/12/16 08:00 CARDIAC ENZYMES Creatine Kinase 62 IU/L (38-174) 06/28/15 09:35 Troponin I 0.07 ng/ml (0.03-0.5) D 07/09/15 05:00 Current Medications Generic Name Dose Route Start Last Admin Trade Name Freq PRN Reason Stop Dose Admin Acetaminophen 650 mg 12/29/15 10:43 02/22/16 18:47 Tylenol Oral Solution - GT 650 mg Q6H PRN Administration FEVER Albuterol/Ipratropium 1 amp 02/02/16 18:45 02/20/16 06:45 Duoneb - NEB 1 amp Q4H PRN Administration SHORTNESS OF BREATH Amino Acids 30 ml 12/29/15 17:30 02/23/16 17:11 Prostat Sugar-Free Packet - PO 30 ml BID@0800,1730 KWAKU Administration Amlodipine Besylate 10 mg 12/30/15 10:00 02/23/16 11:46 Norvasc - GT 10 mg DAILY KWAKU Administration Guaifenesin 10 ml 12/29/15 10:43 02/13/16 11:20 Robitussin Dm - PO 10 ml Q6H PRN Administration COUGH Ibuprofen 200 mg 12/29/15 10:43 02/23/16 17:11 Motrin Oral Suspension - PO 200 mg Q6H PRN Administration FEVER Insulin Aspart 1 vial 01/28/16 16:30 02/23/16 17:11 Novolog Vial Sliding Scale - SQ 2 units BIDI KWAKU Administration Protocol Insulin Detemir 28 units 12/29/15 22:00 02/22/16 22:15 Levemir Vial SQ 28 units HS KWAKU Administration Lactobacillus Acidophilus 1 tab 12/30/15 10:00 02/23/16 11:45 Bacid - PO 1 tab DAILY KWAKU Administration Lisinopril 40 mg 12/30/15 10:00 02/23/16 11:46 Prinivil - GT 40 mg DAILY KWAKU Administration Metoprolol Tartrate 150 mg 12/29/15 22:00 02/23/16 11:46 Lopressor - GT 150 mg BID KWAKU Administration Metoprolol Tartrate 5 mg 12/29/15 10:43 Lopressor Injection - IVPB Q6H PRN HYPERTENSION Multivitamins 5 ml 12/30/15 10:00 02/23/16 11:47 Thera-Plus - GT 5 ml DAILY KWAKU Administration Pantoprazole Sodium 40 mg 12/30/15 10:00 02/23/16 11:47 Protonix Packets For Oral Suspension - GT 40 mg DAILY KWAKU Administration Medication Instructions Recorded Amino Acids/Protein Hydrolys 30 ml GT DAILY packet 08/09/15 [Prostat Sugar-Free Packet -] Amlodipine Besylate [Norvasc -] 10 mg GT DAILY tablet 08/09/15 Chlorhexidine Gluconate [Peridex -] 15 ml MM BID cup 08/09/15 Insulin (Levemir) [Levemir Flexpen 25 units SQ HS pen 08/09/15 -] Insulin (Novolog) [Novolog Flexpen 3 units SQ Q6HPO pen 08/09/15 -] Insulin Sliding Scale [Novolog 0 units SQ Q6HPO pen 08/09/15 Vial Sliding Scale -] Lisinopril [Prinivil] 20 mg GT DAILY tablet 08/09/15 Metoprolol Tartrate Injection 5 mg IVPB Q6H PRN #0 vial 08/09/15 [Lopressor Injection -] Metoprolol Tartrate [Lopressor -] 100 mg GT BID tablet 08/09/15 Ondansetron Injection [Zofran 4 mg IVPB Q6H PRN #0 vial 08/09/15 Injection] Pantoprazole Suspension [Protonix 40 mg GT DAILY packet 08/09/15 Packets For Oral Suspension -] Vancomycin Oral Solution 125 mg GT Q6HPO ml 08/09/15 ASSESSMENT/PLAN: 75 year old male with PMHx of HTN, IDDM, inguinal hernia who presented to the ED with diverticular bleed s/p Righ hemicolectomy with 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 PT developed HCAP and completed 7 days course of vanc/zosyn on 12/01/15. no change in his outcome, weekly labs.stable. #. Fever today with mild leukocytosis, will get UA, urine culture, blood culture stat, Tylenol for fever. #. 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 #. Anoxic brain injury s/p brainstem CVAs , Mental status unchanged #. Respiratory failure secondary to anoxic brain injury - Cont trach collar , duonebs PRN ,Albuterol neb PRN # HTN Cont lisinopril, metoprolol, amlodipine # Multiple pressure ulcers, Stage III sacrum healing - Stage II left ear healing, Turn and position q2h #. IDDM, Levemir 28 units HS - ISS BGM ACHS #. GI bleed: resolved s/p PEG - continue Tube feeds: glucerna now - PT for passive ROM CODE STATUS: DNR
[2016-02-23 20:46] LABS: URINE APPEARANCE TURBID; URINE BILIRUBIN NEGATIVE (NEGATIVE); URINE BLOOD NEGATIVE (NEGATIVE); URINE COLOR YELLOW; URINE GLUCOSE (UA) NEGATIVE (NEGATIVE); URINE KETONE NEGATIVE (NEGATIVE); URINE NITRITE NEGATIVE (NEGATIVE); URINE UROBILINOGEN NEGATIVE E.U./dl (0.2-1.0)
[2016-02-23 21:26] LABS: URINE LEUK ESTERASE 3+ (NEGATIVE); URINE PROTEIN 1+ (NEGATIVE)
[2016-02-23 21:39] LABS: URINE MUCUS RARE; URINE RBC 2 /hpf (0-3); URINE WBC 47 /hpf (3-5)
[2016-02-23] MEDS: INSULIN DETEMIR 100 UNITS/ML MDV SQ SCH (22:29)
[2016-02-23] MEDS: ALBUTEROL SO4 2.5/IPRATROPIUM 0.5 INH SOL 3 ML VIAL.NEB. NEB PRN (22:35)
[2016-02-24] MEDS: INSULIN SLIDING SCALE (NOVOLOG) 1 VIAL SQ SCH ×2 (06:55→17:40)
--- NOTE | 2016-02-24 08:57 | PN ---
Progress Note (short form) - Note Progress Note: Was called for having low grade fever. no new changes. Vital Signs Temperature 100.2 F H 02/24/16 06:00 Pulse Rate 92 H 02/24/16 06:00 Respiratory Rate 22 02/24/16 06:00 Blood Pressure 143/81 02/24/16 06:00 O2 Sat by Pulse Oximetry (%) 97 02/23/16 10:20 SKIN: Warm, dry, normal turgor, no rashes or lesions noted GENERAL: The patient has periods of somnolence, periods of wakefulness. Awake today EYES: Pupils equal, round and reactive to light, sclera anicteric, conjunctiva clear. ENT: Ears normal, Moist mucous membranes. Trach collar, thin, white/sharma secretions. NECK: Normal range of motion, supple without lymphadenopathy, JVD, or masses. LUNGS: Coarse breath sounds. No wheezes, and no crackles. HEART: Regular rate and rhythm, normal S1 and S2 without murmur, rub or gallop. ABDOMEN: Soft, nontender, normoactive bowel sounds. No guarding, no rebound. EXTREMITIES: 2+ pulses, warm, well-perfused, no edema. NEUROLOGICAL: Unable to assess. SKIN: Wounds not visualized today. CBCD WBC 12.7 K/mm3 (4.0-10.0) H 02/23/16 08:00 RBC 3.48 M/mm3 (4.00-5.60) L 02/23/16 08:00 Hgb 9.7 GM/dL (11.7-16.9) L 02/23/16 08:00 Hct 30.0 % (35.4-49) L 02/23/16 08:00 MCV 86.0 fl (80-96) 02/23/16 08:00 MCHC 32.3 g/dl (32.0-35.9) 02/23/16 08:00 RDW 15.4 % (11.9-15.9) 02/23/16 08:00 Plt Count 242 K/MM3 (134-434) 02/23/16 08:00 MPV 8.9 fl (7.5-11.1) 02/23/16 08:00 CMP Sodium 142 mmol/L (136-145) 02/12/16 08:00 Potassium 4.0 mmol/L (3.5-5.1) 02/12/16 08:00 Chloride 102 mmol/L (98-107) 02/12/16 08:00 Carbon Dioxide 33 mmol/L (21-32) H 02/12/16 08:00 Anion Gap 7 (8-16) L 02/12/16 08:00 BUN 26 mg/dL (7-18) H D 02/12/16 08:00 Creatinine 0.8 mg/dL (0.7-1.3) 02/12/16 08:00 Creat Clearance w eGFR > 60 (>60) 02/12/16 08:00 Random Glucose 139 mg/dL (74-106) H D 02/12/16 08:00 Calcium 9.8 mg/dL (8.5-10.1) 02/12/16 08:00 Total Bilirubin 0.2 mg/dL (0.2-1.0) D 02/12/16 08:00 AST 13 U/L (15-37) L 02/12/16 08:00 ALT 21 U/L (12-78) 02/12/16 08:00 Alkaline Phosphatase 97 U/L (45-117) 02/12/16 08:00 Total Protein 7.5 g/dl (6.4-8.2) 02/12/16 08:00 Albumin 3.0 g/dl (3.4-5.0) L 02/12/16 08:00 CARDIAC ENZYMES Creatine Kinase 62 IU/L (38-174) 06/28/15 09:35 Troponin I 0.07 ng/ml (0.03-0.5) D 07/09/15 05:00 Current Medications Generic Name Dose Route Start Last Admin Trade Name Freq PRN Reason Stop Dose Admin Acetaminophen 650 mg 12/29/15 10:43 02/22/16 18:47 Tylenol Oral Solution - GT 650 mg Q6H PRN Administration FEVER Albuterol/Ipratropium 1 amp 02/02/16 18:45 02/23/16 22:35 Duoneb - NEB 1 amp Q4H PRN Administration SHORTNESS OF BREATH Amino Acids 30 ml 12/29/15 17:30 02/23/16 17:11 Prostat Sugar-Free Packet - PO 30 ml BID@0800,1730 KWAKU Administration Amlodipine Besylate 10 mg 12/30/15 10:00 02/23/16 11:46 Norvasc - GT 10 mg DAILY KWAKU Administration Guaifenesin 10 ml 12/29/15 10:43 02/13/16 11:20 Robitussin Dm - PO 10 ml Q6H PRN Administration COUGH Ibuprofen 200 mg 12/29/15 10:43 02/23/16 17:11 Motrin Oral Suspension - PO 200 mg Q6H PRN Administration FEVER Insulin Aspart 1 vial 01/28/16 16:30 02/24/16 06:55 Novolog Vial Sliding Scale - SQ 2 units BIDI KWAKU Administration Protocol Insulin Detemir 28 units 12/29/15 22:00 02/23/16 22:29 Levemir Vial SQ 28 units HS KWAKU Administration Lactobacillus Acidophilus 1 tab 12/30/15 10:00 02/23/16 11:45 Bacid - PO 1 tab DAILY KWAKU Administration Lisinopril 40 mg 12/30/15 10:00 02/23/16 11:46 Prinivil - GT 40 mg DAILY KWAKU Administration Metoprolol Tartrate 150 mg 12/29/15 22:00 02/23/16 22:30 Lopressor - GT 150 mg BID KWAKU Administration Metoprolol Tartrate 5 mg 12/29/15 10:43 Lopressor Injection - IVPB Q6H PRN HYPERTENSION Multivitamins 5 ml 12/30/15 10:00 02/23/16 11:47 Thera-Plus - GT 5 ml DAILY KWAKU Administration Pantoprazole Sodium 40 mg 12/30/15 10:00 02/23/16 11:47 Protonix Packets For Oral Suspension - GT 40 mg DAILY KWAKU Administration Medication Instructions Recorded Amino Acids/Protein Hydrolys 30 ml GT DAILY packet 08/09/15 [Prostat Sugar-Free Packet -] Amlodipine Besylate [Norvasc -] 10 mg GT DAILY tablet 08/09/15 Chlorhexidine Gluconate [Peridex -] 15 ml MM BID cup 08/09/15 Insulin (Levemir) [Levemir Flexpen 25 units SQ HS pen 08/09/15 -] Insulin (Novolog) [Novolog Flexpen 3 units SQ Q6HPO pen 08/09/15 -] Insulin Sliding Scale [Novolog 0 units SQ Q6HPO pen 08/09/15 Vial Sliding Scale -] Lisinopril [Prinivil] 20 mg GT DAILY tablet 08/09/15 Metoprolol Tartrate Injection 5 mg IVPB Q6H PRN #0 vial 08/09/15 [Lopressor Injection -] Metoprolol Tartrate [Lopressor -] 100 mg GT BID tablet 08/09/15 Ondansetron Injection [Zofran 4 mg IVPB Q6H PRN #0 vial 08/09/15 Injection] Pantoprazole Suspension [Protonix 40 mg GT DAILY packet 08/09/15 Packets For Oral Suspension -] Vancomycin Oral Solution 125 mg GT Q6HPO ml 08/09/15 Urine Test Results Urine Color Yellow 02/23/16 19:45 Urine Appearance Turbid 02/23/16 19:45 Urine pH 8.0 (5.0-8.0) D 02/23/16 19:45 Ur Specific Sublimity 1.014 (1.001-1.035) 02/23/16 19:45 Urine Protein 1+ (NEGATIVE) H 02/23/16 19:45 Urine Glucose (UA) Negative (NEGATIVE) 02/23/16 19:45 Urine Ketones Negative (NEGATIVE) 02/23/16 19:45 Urine Blood Negative (NEGATIVE) 02/23/16 19:45 Urine Nitrite Negative (NEGATIVE) 02/23/16 19:45 Urine Bilirubin Negative (NEGATIVE) 02/23/16 19:45 Ur Leukocyte Esterase 3+ (NEGATIVE) H 02/23/16 19:45 Urine RBC 2 /hpf (0-3) 02/23/16 19:45 Urine WBC 47 /hpf (3-5) 02/23/16 19:45 Ur Epithelial Cells Rare /hpf (FEW) 02/23/16 19:45 Urine Bacteria Many /hpf (NEGATIVE) 01/29/16 14:44 Urine Mucus Rare 02/23/16 19:45 ASSESSMENT/PLAN: 75 year old male with PMHx of HTN, IDDM, inguinal hernia who presented to the ED with diverticular bleed s/p Righ hemicolectomy with 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 PT developed HCAP and completed 7 days course of vanc/zosyn on 12/01/15. no change in his outcome, weekly labs.stable. #. Fever today with mild leukocytosis, will get UA, urine culture, pending, Tylenol for fever. #. 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 #. Anoxic brain injury s/p brainstem CVAs , Mental status unchanged #. Respiratory failure secondary to anoxic brain injury - Cont trach collar , duonebs PRN ,Albuterol neb PRN # HTN Cont lisinopril, metoprolol, amlodipine # Multiple pressure ulcers, Stage III sacrum healing - Stage II left ear healing, Turn and position q2h #. IDDM, Levemir 28 units HS - ISS BGM ACHS #. GI bleed: resolved s/p PEG - continue Tube feeds: glucerna now - PT for passive ROM CODE STATUS: DNR
[2016-02-24] MEDS: LISINOPRIL 20 MG TABLET (FP) GT SCH (12:22)
[2016-02-24] MEDS: METOPROLOL TARTRATE 50 MG TABLET (FP) GT SCH ×2 (12:22→21:56)
[2016-02-24] MEDS: PANTOPRAZOLE SOD 40 MG SUSPENSION PACKET GT SCH (12:22)
[2016-02-24] MEDS: amLODIPine BESYLATE 10 MG TABLET (FP) GT SCH (12:22)
[2016-02-24] MEDS: MULTIVITAMINS THERAPEUTIC GT SCH (12:22)
[2016-02-24] MEDS: LACTOBACILLUS ACIDOPHILUS 1 EACH TAB (FP) PO SCH (12:22)
[2016-02-24] MEDS: AMINO ACIDS/PROTEIN HYDROLYS SUGAR-FREE 30 ML PACKET PO SCH ×2 (12:23→17:40)
[2016-02-24] MEDS: INSULIN DETEMIR 100 UNITS/ML MDV SQ SCH (21:56)
[2016-02-25] MEDS: INSULIN SLIDING SCALE (NOVOLOG) 1 VIAL SQ SCH ×2 (06:47→17:37)
--- NOTE | 2016-02-25 09:31 | PN ---
Progress Note (short form) - Note Progress Note: No new complains Vital Signs Temperature 99.9 F H 02/25/16 06:00 Pulse Rate 96 H 02/25/16 06:00 Respiratory Rate 20 02/25/16 06:00 Blood Pressure 149/86 02/25/16 06:00 O2 Sat by Pulse Oximetry (%) 98 02/24/16 21:00 SKIN: Warm, dry, normal turgor, no rashes or lesions noted GENERAL: The patient has periods of somnolence, periods of wakefulness. Awake today EYES: Pupils equal, round and reactive to light, sclera anicteric, conjunctiva clear. ENT: Ears normal, Moist mucous membranes. Trach collar, thin, white/sharma secretions. NECK: Normal range of motion, supple without lymphadenopathy, JVD, or masses. LUNGS: Coarse breath sounds. No wheezes, and no crackles. HEART: Regular rate and rhythm, normal S1 and S2 without murmur, rub or gallop. ABDOMEN: Soft, nontender, normoactive bowel sounds. No guarding, no rebound. EXTREMITIES: 2+ pulses, warm, well-perfused, no edema. NEUROLOGICAL: Unable to assess. SKIN: Wounds not visualized today. CBCD WBC 12.7 K/mm3 (4.0-10.0) H 02/23/16 08:00 RBC 3.48 M/mm3 (4.00-5.60) L 02/23/16 08:00 Hgb 9.7 GM/dL (11.7-16.9) L 02/23/16 08:00 Hct 30.0 % (35.4-49) L 02/23/16 08:00 MCV 86.0 fl (80-96) 02/23/16 08:00 MCHC 32.3 g/dl (32.0-35.9) 02/23/16 08:00 RDW 15.4 % (11.9-15.9) 02/23/16 08:00 Plt Count 242 K/MM3 (134-434) 02/23/16 08:00 MPV 8.9 fl (7.5-11.1) 02/23/16 08:00 CMP Sodium 142 mmol/L (136-145) 02/12/16 08:00 Potassium 4.0 mmol/L (3.5-5.1) 02/12/16 08:00 Chloride 102 mmol/L (98-107) 02/12/16 08:00 Carbon Dioxide 33 mmol/L (21-32) H 02/12/16 08:00 Anion Gap 7 (8-16) L 02/12/16 08:00 BUN 26 mg/dL (7-18) H D 02/12/16 08:00 Creatinine 0.8 mg/dL (0.7-1.3) 02/12/16 08:00 Creat Clearance w eGFR > 60 (>60) 02/12/16 08:00 Random Glucose 139 mg/dL (74-106) H D 02/12/16 08:00 Calcium 9.8 mg/dL (8.5-10.1) 02/12/16 08:00 Total Bilirubin 0.2 mg/dL (0.2-1.0) D 02/12/16 08:00 AST 13 U/L (15-37) L 02/12/16 08:00 ALT 21 U/L (12-78) 02/12/16 08:00 Alkaline Phosphatase 97 U/L (45-117) 02/12/16 08:00 Total Protein 7.5 g/dl (6.4-8.2) 02/12/16 08:00 Albumin 3.0 g/dl (3.4-5.0) L 02/12/16 08:00 CARDIAC ENZYMES Creatine Kinase 62 IU/L (38-174) 06/28/15 09:35 Troponin I 0.07 ng/ml (0.03-0.5) D 07/09/15 05:00 Current Medications Generic Name Dose Route Start Last Admin Trade Name Freq PRN Reason Stop Dose Admin Acetaminophen 650 mg 12/29/15 10:43 02/22/16 18:47 Tylenol Oral Solution - GT 650 mg Q6H PRN Administration FEVER Albuterol/Ipratropium 1 amp 02/02/16 18:45 02/23/16 22:35 Duoneb - NEB 1 amp Q4H PRN Administration SHORTNESS OF BREATH Amino Acids 30 ml 12/29/15 17:30 02/24/16 17:40 Prostat Sugar-Free Packet - PO 30 ml BID@0800,1730 KWAKU Administration Amlodipine Besylate 10 mg 12/30/15 10:00 02/24/16 12:22 Norvasc - GT 10 mg DAILY KWAKU Administration Guaifenesin 10 ml 12/29/15 10:43 02/13/16 11:20 Robitussin Dm - PO 10 ml Q6H PRN Administration COUGH Ibuprofen 200 mg 12/29/15 10:43 02/23/16 17:11 Motrin Oral Suspension - PO 200 mg Q6H PRN Administration FEVER Insulin Aspart 1 vial 01/28/16 16:30 02/25/16 06:47 Novolog Vial Sliding Scale - SQ 2 units BIDI KWAKU Administration Protocol Insulin Detemir 28 units 12/29/15 22:00 02/24/16 21:56 Levemir Vial SQ 28 units HS KWAKU Administration Lactobacillus Acidophilus 1 tab 12/30/15 10:00 02/24/16 12:22 Bacid - PO 1 tab DAILY KWAKU Administration Lisinopril 40 mg 12/30/15 10:00 02/24/16 12:22 Prinivil - GT 40 mg DAILY KWAKU Administration Metoprolol Tartrate 150 mg 12/29/15 22:00 02/24/16 21:56 Lopressor - GT 150 mg BID KWAKU Administration Metoprolol Tartrate 5 mg 12/29/15 10:43 Lopressor Injection - IVPB Q6H PRN HYPERTENSION Multivitamins 5 ml 12/30/15 10:00 02/24/16 12:22 Thera-Plus - GT 5 ml DAILY KWAKU Administration Pantoprazole Sodium 40 mg 12/30/15 10:00 02/24/16 12:22 Protonix Packets For Oral Suspension - GT 40 mg DAILY KWAKU Administration Medication Instructions Recorded Amino Acids/Protein Hydrolys 30 ml GT DAILY packet 08/09/15 [Prostat Sugar-Free Packet -] Amlodipine Besylate [Norvasc -] 10 mg GT DAILY tablet 08/09/15 Chlorhexidine Gluconate [Peridex -] 15 ml MM BID cup 08/09/15 Insulin (Levemir) [Levemir Flexpen 25 units SQ HS pen 08/09/15 -] Insulin (Novolog) [Novolog Flexpen 3 units SQ Q6HPO pen 08/09/15 -] Insulin Sliding Scale [Novolog 0 units SQ Q6HPO pen 08/09/15 Vial Sliding Scale -] Lisinopril [Prinivil] 20 mg GT DAILY tablet 08/09/15 Metoprolol Tartrate Injection 5 mg IVPB Q6H PRN #0 vial 08/09/15 [Lopressor Injection -] Metoprolol Tartrate [Lopressor -] 100 mg GT BID tablet 08/09/15 Ondansetron Injection [Zofran 4 mg IVPB Q6H PRN #0 vial 08/09/15 Injection] Pantoprazole Suspension [Protonix 40 mg GT DAILY packet 08/09/15 Packets For Oral Suspension -] Vancomycin Oral Solution 125 mg GT Q6HPO ml 08/09/15 ASSESSMENT/PLAN: 75 year old male with PMHx of HTN, IDDM, inguinal hernia who presented to the ED with diverticular bleed s/p Righ hemicolectomy with 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 PT developed HCAP and completed 7 days course of vanc/zosyn on 12/01/15. no change in his outcome, weekly labs.stable. #. Fever today with mild leukocytosis, will get UA, urine culture, blood culture stat, Tylenol for fever. #. 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 #. Anoxic brain injury s/p brainstem CVAs , Mental status unchanged #. Respiratory failure secondary to anoxic brain injury - Cont trach collar , duonebs PRN ,Albuterol neb PRN # HTN Cont lisinopril, metoprolol, amlodipine # Multiple pressure ulcers, Stage III sacrum healing - Stage II left ear healing, Turn and position q2h #. IDDM, Levemir 28 units HS - ISS BGM ACHS #. GI bleed: resolved s/p PEG - continue Tube feeds: glucerna now - PT for passive ROM CODE STATUS: DNR
[2016-02-25] MEDS: LACTOBACILLUS ACIDOPHILUS 1 EACH TAB (FP) PO SCH (11:05)
[2016-02-25] MEDS: METOPROLOL TARTRATE 50 MG TABLET (FP) GT SCH ×2 (11:05→22:53)
[2016-02-25] MEDS: amLODIPine BESYLATE 10 MG TABLET (FP) GT SCH (11:06)
[2016-02-25] MEDS: LISINOPRIL 20 MG TABLET (FP) GT SCH (11:06)
[2016-02-25] MEDS: PANTOPRAZOLE SOD 40 MG SUSPENSION PACKET GT SCH (11:06)
[2016-02-25] MEDS: MULTIVITAMINS THERAPEUTIC GT SCH (11:06)
[2016-02-25] MEDS: AMINO ACIDS/PROTEIN HYDROLYS SUGAR-FREE 30 ML PACKET PO SCH ×2 (11:07→17:37)
[2016-02-25] MEDS: INSULIN DETEMIR 100 UNITS/ML MDV SQ SCH (22:52)
[2016-02-26] MEDS: INSULIN SLIDING SCALE (NOVOLOG) 1 VIAL SQ SCH ×2 (07:00→17:50)
[2016-02-26] MEDS: IBUPROFEN 100 MG/5 ML UNIT DOSE CUPS PO PRN (10:46)
[2016-02-26] MEDS: LISINOPRIL 20 MG TABLET (FP) GT SCH (10:46)
[2016-02-26] MEDS: amLODIPine BESYLATE 10 MG TABLET (FP) GT SCH (10:46)
[2016-02-26] MEDS: METOPROLOL TARTRATE 50 MG TABLET (FP) GT SCH ×2 (10:46→22:42)
[2016-02-26] MEDS: LACTOBACILLUS ACIDOPHILUS 1 EACH TAB (FP) PO SCH (10:46)
[2016-02-26] MEDS: MULTIVITAMINS THERAPEUTIC GT SCH (10:47)
[2016-02-26] MEDS: PANTOPRAZOLE SOD 40 MG SUSPENSION PACKET GT SCH (10:47)
[2016-02-26] MEDS: AMINO ACIDS/PROTEIN HYDROLYS SUGAR-FREE 30 ML PACKET PO SCH ×2 (10:47→17:50)
--- NOTE | 2016-02-26 16:31 | PN ---
Progress Note (short form) - Note Progress Note: Patient is comfortable with no acute distress, no new findings. Temperature 97.8 F 02/26/16 14:00 Pulse Rate 90 02/26/16 14:00 Respiratory Rate 18 02/26/16 14:00 Blood Pressure 136/78 02/26/16 14:00 O2 Sat by Pulse Oximetry (%) 100 02/26/16 10:50 SKIN: Warm, dry, normal turgor, no rashes or lesions noted GENERAL: The patient has periods of somnolence, periods of wakefulness. Awake today EYES: Pupils equal, round and reactive to light, sclera anicteric, conjunctiva clear. ENT: Ears normal, Moist mucous membranes. Trach collar, thin, white/sharma secretions. NECK: Normal range of motion, supple without lymphadenopathy, JVD, or masses. LUNGS: Coarse breath sounds. No wheezes, and no crackles. HEART: Regular rate and rhythm, normal S1 and S2 without murmur, rub or gallop. ABDOMEN: Soft, nontender, normoactive bowel sounds. No guarding, no rebound. EXTREMITIES: 2+ pulses, warm, well-perfused, no edema. NEUROLOGICAL: Unable to assess. SKIN: Wounds not visualized today. CBCD WBC 12.7 K/mm3 (4.0-10.0) H 02/23/16 08:00 RBC 3.48 M/mm3 (4.00-5.60) L 02/23/16 08:00 Hgb 9.7 GM/dL (11.7-16.9) L 02/23/16 08:00 Hct 30.0 % (35.4-49) L 02/23/16 08:00 MCV 86.0 fl (80-96) 02/23/16 08:00 MCHC 32.3 g/dl (32.0-35.9) 02/23/16 08:00 RDW 15.4 % (11.9-15.9) 02/23/16 08:00 Plt Count 242 K/MM3 (134-434) 02/23/16 08:00 MPV 8.9 fl (7.5-11.1) 02/23/16 08:00 CMP Sodium 142 mmol/L (136-145) 02/12/16 08:00 Potassium 4.0 mmol/L (3.5-5.1) 02/12/16 08:00 Chloride 102 mmol/L (98-107) 02/12/16 08:00 Carbon Dioxide 33 mmol/L (21-32) H 02/12/16 08:00 Anion Gap 7 (8-16) L 02/12/16 08:00 BUN 26 mg/dL (7-18) H D 02/12/16 08:00 Creatinine 0.8 mg/dL (0.7-1.3) 02/12/16 08:00 Creat Clearance w eGFR > 60 (>60) 02/12/16 08:00 Random Glucose 139 mg/dL (74-106) H D 02/12/16 08:00 Calcium 9.8 mg/dL (8.5-10.1) 02/12/16 08:00 Total Bilirubin 0.2 mg/dL (0.2-1.0) D 02/12/16 08:00 AST 13 U/L (15-37) L 02/12/16 08:00 ALT 21 U/L (12-78) 02/12/16 08:00 Alkaline Phosphatase 97 U/L (45-117) 02/12/16 08:00 Total Protein 7.5 g/dl (6.4-8.2) 02/12/16 08:00 Albumin 3.0 g/dl (3.4-5.0) L 02/12/16 08:00 CARDIAC ENZYMES Creatine Kinase 62 IU/L (38-174) 06/28/15 09:35 Troponin I 0.07 ng/ml (0.03-0.5) D 07/09/15 05:00 Current Medications Generic Name Dose Route Start Last Admin Trade Name Freq PRN Reason Stop Dose Admin Acetaminophen 650 mg 12/29/15 10:43 02/22/16 18:47 Tylenol Oral Solution - GT 650 mg Q6H PRN Administration FEVER Albuterol/Ipratropium 1 amp 02/02/16 18:45 02/23/16 22:35 Duoneb - NEB 1 amp Q4H PRN Administration SHORTNESS OF BREATH Amino Acids 30 ml 12/29/15 17:30 02/26/16 10:47 Prostat Sugar-Free Packet - PO 30 ml BID@0800,1730 KWAKU Administration Amlodipine Besylate 10 mg 12/30/15 10:00 02/26/16 10:46 Norvasc - GT 10 mg DAILY KWAKU Administration Guaifenesin 10 ml 12/29/15 10:43 02/13/16 11:20 Robitussin Dm - PO 10 ml Q6H PRN Administration COUGH Ibuprofen 200 mg 12/29/15 10:43 02/26/16 10:46 Motrin Oral Suspension - PO 200 mg Q6H PRN Administration FEVER Insulin Aspart 1 vial 01/28/16 16:30 02/26/16 07:00 Novolog Vial Sliding Scale - SQ 2 units BIDI KWAKU Administration Protocol Insulin Detemir 28 units 12/29/15 22:00 02/25/16 22:52 Levemir Vial SQ 28 units HS KWAKU Administration Lactobacillus Acidophilus 1 tab 12/30/15 10:00 02/26/16 10:46 Bacid - PO 1 tab DAILY KWAKU Administration Lisinopril 40 mg 12/30/15 10:00 02/26/16 10:46 Prinivil - GT 40 mg DAILY KWAKU Administration Metoprolol Tartrate 150 mg 12/29/15 22:00 02/26/16 10:46 Lopressor - GT 150 mg BID KWAKU Administration Metoprolol Tartrate 5 mg 12/29/15 10:43 Lopressor Injection - IVPB Q6H PRN HYPERTENSION Multivitamins 5 ml 12/30/15 10:00 02/26/16 10:47 Thera-Plus - GT 5 ml DAILY KWAKU Administration Pantoprazole Sodium 40 mg 12/30/15 10:00 02/26/16 10:47 Protonix Packets For Oral Suspension - GT 40 mg DAILY KWAKU Administration Medication Instructions Recorded Amino Acids/Protein Hydrolys 30 ml GT DAILY packet 08/09/15 [Prostat Sugar-Free Packet -] Amlodipine Besylate [Norvasc -] 10 mg GT DAILY tablet 08/09/15 Chlorhexidine Gluconate [Peridex -] 15 ml MM BID cup 08/09/15 Insulin (Levemir) [Levemir Flexpen 25 units SQ HS pen 08/09/15 -] Insulin (Novolog) [Novolog Flexpen 3 units SQ Q6HPO pen 08/09/15 -] Insulin Sliding Scale [Novolog 0 units SQ Q6HPO pen 08/09/15 Vial Sliding Scale -] Lisinopril [Prinivil] 20 mg GT DAILY tablet 08/09/15 Metoprolol Tartrate Injection 5 mg IVPB Q6H PRN #0 vial 08/09/15 [Lopressor Injection -] Metoprolol Tartrate [Lopressor -] 100 mg GT BID tablet 08/09/15 Ondansetron Injection [Zofran 4 mg IVPB Q6H PRN #0 vial 08/09/15 Injection] Pantoprazole Suspension [Protonix 40 mg GT DAILY packet 08/09/15 Packets For Oral Suspension -] Vancomycin Oral Solution 125 mg GT Q6HPO ml 08/09/15 ASSESSMENT/PLAN: 75 year old male with PMHx of HTN, IDDM, inguinal hernia who presented to the ED with diverticular bleed s/p Righ hemicolectomy with 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 PT developed HCAP and completed 7 days course of vanc/zosyn on 12/01/15. no change in his outcome, weekly labs.stable. #. No Fever today with mild leukocytosis, straight cath for UA, urine culture, Tylenol for fever prn. #. 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 #. Anoxic brain injury s/p brainstem CVAs , Mental status unchanged #. Respiratory failure secondary to anoxic brain injury - Cont trach collar , duonebs PRN ,Albuterol neb PRN # HTN Cont lisinopril, metoprolol, amlodipine # Multiple pressure ulcers, Stage III sacrum healing - Stage II left ear healing, Turn and position q2h #. IDDM, Levemir 28 units HS - ISS BGM ACHS #. GI bleed: resolved s/p PEG - continue Tube feeds: glucerna now - PT for passive ROM CODE STATUS: DNR CODE STATUS: DNR
[2016-02-26] MEDS: ALBUTEROL SO4 2.5/IPRATROPIUM 0.5 INH SOL 3 ML VIAL.NEB. NEB PRN (18:36)
[2016-02-26] MEDS: INSULIN DETEMIR 100 UNITS/ML MDV SQ SCH (22:42)
[2016-02-27] MEDS: INSULIN SLIDING SCALE (NOVOLOG) 1 VIAL SQ SCH ×2 (06:23→17:39)
[2016-02-27] MEDS: AMINO ACIDS/PROTEIN HYDROLYS SUGAR-FREE 30 ML PACKET PO SCH ×2 (07:36→17:40)
[2016-02-27] MEDS: amLODIPine BESYLATE 10 MG TABLET (FP) GT SCH (09:53)
[2016-02-27] MEDS: LISINOPRIL 20 MG TABLET (FP) GT SCH (09:53)
[2016-02-27] MEDS: METOPROLOL TARTRATE 50 MG TABLET (FP) GT SCH ×2 (09:53→22:15)
[2016-02-27] MEDS: LACTOBACILLUS ACIDOPHILUS 1 EACH TAB (FP) PO SCH (09:53)
[2016-02-27] MEDS: MULTIVITAMINS THERAPEUTIC GT SCH (09:54)
[2016-02-27] MEDS: PANTOPRAZOLE SOD 40 MG SUSPENSION PACKET GT SCH (09:54)
[2016-02-27] MEDS: INSULIN DETEMIR 100 UNITS/ML MDV SQ SCH (22:15)
[2016-02-28] MEDS: INSULIN SLIDING SCALE (NOVOLOG) 1 VIAL SQ SCH ×2 (06:24→18:10)
[2016-02-28] MEDS: AMINO ACIDS/PROTEIN HYDROLYS SUGAR-FREE 30 ML PACKET PO SCH ×2 (08:36→18:10)
[2016-02-28] MEDS: METOPROLOL TARTRATE 50 MG TABLET (FP) GT SCH ×2 (11:42→22:05)
[2016-02-28] MEDS: LACTOBACILLUS ACIDOPHILUS 1 EACH TAB (FP) PO SCH (11:42)
[2016-02-28] MEDS: amLODIPine BESYLATE 10 MG TABLET (FP) GT SCH (11:43)
[2016-02-28] MEDS: LISINOPRIL 20 MG TABLET (FP) GT SCH (11:43)
[2016-02-28] MEDS: PANTOPRAZOLE SOD 40 MG SUSPENSION PACKET GT SCH (11:43)
[2016-02-28] MEDS: MULTIVITAMINS THERAPEUTIC GT SCH (11:43)
--- NOTE | 2016-02-28 15:37 | PN ---
Progress Note (short form) - Note Progress Note: patient has mild tachycardia, no fever, or chills, otherwise comfortable. Vital Signs Temperature 99.0 F 02/28/16 10:00 Pulse Rate 106 H 02/28/16 13:54 Respiratory Rate 26 H 02/28/16 10:00 Blood Pressure 144/89 02/28/16 10:00 O2 Sat by Pulse Oximetry (%) 96 02/28/16 13:54 SKIN: Warm, dry, normal turgor, no rashes or lesions noted GENERAL: The patient has periods of somnolence, periods of wakefulness. Awake today EYES: Pupils equal, round and reactive to light, sclera anicteric, conjunctiva clear. ENT: Ears normal, Moist mucous membranes. Trach collar, thin, white/sharma secretions. NECK: Normal range of motion, supple without lymphadenopathy, JVD, or masses. LUNGS: Coarse breath sounds. No wheezes, and no crackles. HEART: Regular rate and rhythm, normal S1 and S2 without murmur, rub or gallop. ABDOMEN: Soft, nontender, normoactive bowel sounds. No guarding, no rebound. EXTREMITIES: 2+ pulses, warm, well-perfused, no edema. NEUROLOGICAL: Unable to assess. SKIN: Wounds not visualized today. CBCD WBC 12.7 K/mm3 (4.0-10.0) H 02/23/16 08:00 RBC 3.48 M/mm3 (4.00-5.60) L 02/23/16 08:00 Hgb 9.7 GM/dL (11.7-16.9) L 02/23/16 08:00 Hct 30.0 % (35.4-49) L 02/23/16 08:00 MCV 86.0 fl (80-96) 02/23/16 08:00 MCHC 32.3 g/dl (32.0-35.9) 02/23/16 08:00 RDW 15.4 % (11.9-15.9) 02/23/16 08:00 Plt Count 242 K/MM3 (134-434) 02/23/16 08:00 MPV 8.9 fl (7.5-11.1) 02/23/16 08:00 CMP Sodium 142 mmol/L (136-145) 02/12/16 08:00 Potassium 4.0 mmol/L (3.5-5.1) 02/12/16 08:00 Chloride 102 mmol/L (98-107) 02/12/16 08:00 Carbon Dioxide 33 mmol/L (21-32) H 02/12/16 08:00 Anion Gap 7 (8-16) L 02/12/16 08:00 BUN 26 mg/dL (7-18) H D 02/12/16 08:00 Creatinine 0.8 mg/dL (0.7-1.3) 02/12/16 08:00 Creat Clearance w eGFR > 60 (>60) 02/12/16 08:00 Random Glucose 139 mg/dL (74-106) H D 02/12/16 08:00 Calcium 9.8 mg/dL (8.5-10.1) 02/12/16 08:00 Total Bilirubin 0.2 mg/dL (0.2-1.0) D 02/12/16 08:00 AST 13 U/L (15-37) L 02/12/16 08:00 ALT 21 U/L (12-78) 02/12/16 08:00 Alkaline Phosphatase 97 U/L (45-117) 02/12/16 08:00 Total Protein 7.5 g/dl (6.4-8.2) 02/12/16 08:00 Albumin 3.0 g/dl (3.4-5.0) L 02/12/16 08:00 CARDIAC ENZYMES Creatine Kinase 62 IU/L (38-174) 06/28/15 09:35 Troponin I 0.07 ng/ml (0.03-0.5) D 07/09/15 05:00 Current Medications Generic Name Dose Route Start Last Admin Trade Name Freq PRN Reason Stop Dose Admin Acetaminophen 650 mg 12/29/15 10:43 02/22/16 18:47 Tylenol Oral Solution - GT 650 mg Q6H PRN Administration FEVER Amino Acids 30 ml 12/29/15 17:30 02/28/16 08:36 Prostat Sugar-Free Packet - PO 30 ml BID@0800,1730 KWAKU Administration Amlodipine Besylate 10 mg 12/30/15 10:00 02/28/16 11:43 Norvasc - GT 10 mg DAILY KWAKU Administration Guaifenesin 10 ml 12/29/15 10:43 02/13/16 11:20 Robitussin Dm - PO 10 ml Q6H PRN Administration COUGH Ibuprofen 200 mg 12/29/15 10:43 02/26/16 10:46 Motrin Oral Suspension - PO 200 mg Q6H PRN Administration FEVER Insulin Aspart 1 vial 01/28/16 16:30 02/28/16 06:24 Novolog Vial Sliding Scale - SQ 2 units BIDI KWAKU Administration Protocol Insulin Detemir 28 units 12/29/15 22:00 02/27/16 22:15 Levemir Vial SQ 28 units HS KWAKU Administration Lactobacillus Acidophilus 1 tab 12/30/15 10:00 02/28/16 11:42 Bacid - PO 1 tab DAILY KWAKU Administration Lisinopril 40 mg 12/30/15 10:00 02/28/16 11:43 Prinivil - GT 40 mg DAILY KWAKU Administration Metoprolol Tartrate 150 mg 12/29/15 22:00 02/28/16 11:42 Lopressor - GT 150 mg BID KWAKU Administration Metoprolol Tartrate 5 mg 12/29/15 10:43 Lopressor Injection - IVPB Q6H PRN HYPERTENSION Multivitamins 5 ml 12/30/15 10:00 02/28/16 11:43 Thera-Plus - GT 5 ml DAILY KWAKU Administration Pantoprazole Sodium 40 mg 12/30/15 10:00 02/28/16 11:43 Protonix Packets For Oral Suspension - GT 40 mg DAILY KWAKU Administration ASSESSMENT/PLAN: 75 year old male with PMHx of HTN, IDDM, inguinal hernia who presented to the ED with diverticular bleed s/p Righ hemicolectomy with 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 PT developed HCAP and completed 7 days course of vanc/zosyn on 12/01/15. no change in his outcome, weekly labs.stable. #.No Fever today with mild leukocytosis, check UA, urine culture, blood culture , Tylenol for fever prn. #. 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 #. Anoxic brain injury s/p brainstem CVAs , Mental status unchanged #. Respiratory failure secondary to anoxic brain injury - Cont trach collar , duonebs PRN ,Albuterol neb PRN # HTN Cont lisinopril, metoprolol, amlodipine # Multiple pressure ulcers, Stage III sacrum healing - Stage II left ear healing, Turn and position q2h #. IDDM, Levemir 28 units HS - ISS BGM ACHS #. GI bleed: resolved s/p PEG - continue Tube feeds: glucerna now - PT for passive ROM CODE STATUS: DNR
--- NOTE | 2016-02-28 15:37 | PN ---
Progress Note (short form) - Note Progress Note: Comforatble, no new changes. Low grade fever on and off. Vital Signs Period Temp Pulse Resp BP Sys/Santiago Pulse Ox Last 24 Hr 97.3 F-99.0 F 83-111 20-26 139-150/77-89 96-99 SKIN: Warm, dry, normal turgor, no rashes or lesions noted GENERAL: The patient has periods of somnolence, periods of wakefulness. Awake today EYES: Pupils equal, round and reactive to light, sclera anicteric, conjunctiva clear. ENT: Ears normal, Moist mucous membranes. Trach collar, thin, white/sharma secretions. NECK: Normal range of motion, supple without lymphadenopathy, JVD, or masses. LUNGS: Coarse breath sounds. No wheezes, and no crackles. HEART: Regular rate and rhythm, normal S1 and S2 without murmur, rub or gallop. ABDOMEN: Soft, nontender, normoactive bowel sounds. No guarding, no rebound. EXTREMITIES: 2+ pulses, warm, well-perfused, no edema. NEUROLOGICAL: Unable to assess. CBCD WBC 12.7 K/mm3 (4.0-10.0) H 02/23/16 08:00 RBC 3.48 M/mm3 (4.00-5.60) L 02/23/16 08:00 Hgb 9.7 GM/dL (11.7-16.9) L 02/23/16 08:00 Hct 30.0 % (35.4-49) L 02/23/16 08:00 MCV 86.0 fl (80-96) 02/23/16 08:00 MCHC 32.3 g/dl (32.0-35.9) 02/23/16 08:00 RDW 15.4 % (11.9-15.9) 02/23/16 08:00 Plt Count 242 K/MM3 (134-434) 02/23/16 08:00 MPV 8.9 fl (7.5-11.1) 02/23/16 08:00 CMP Sodium 142 mmol/L (136-145) 02/12/16 08:00 Potassium 4.0 mmol/L (3.5-5.1) 02/12/16 08:00 Chloride 102 mmol/L (98-107) 02/12/16 08:00 Carbon Dioxide 33 mmol/L (21-32) H 02/12/16 08:00 Anion Gap 7 (8-16) L 02/12/16 08:00 BUN 26 mg/dL (7-18) H D 02/12/16 08:00 Creatinine 0.8 mg/dL (0.7-1.3) 02/12/16 08:00 Creat Clearance w eGFR > 60 (>60) 02/12/16 08:00 Random Glucose 139 mg/dL (74-106) H D 02/12/16 08:00 Calcium 9.8 mg/dL (8.5-10.1) 02/12/16 08:00 Total Bilirubin 0.2 mg/dL (0.2-1.0) D 02/12/16 08:00 AST 13 U/L (15-37) L 02/12/16 08:00 ALT 21 U/L (12-78) 02/12/16 08:00 Alkaline Phosphatase 97 U/L (45-117) 02/12/16 08:00 Total Protein 7.5 g/dl (6.4-8.2) 02/12/16 08:00 Albumin 3.0 g/dl (3.4-5.0) L 02/12/16 08:00 CARDIAC ENZYMES Creatine Kinase 62 IU/L (38-174) 06/28/15 09:35 Troponin I 0.07 ng/ml (0.03-0.5) D 07/09/15 05:00 Medication Instructions Recorded Amino Acids/Protein Hydrolys 30 ml GT DAILY packet 08/09/15 [Prostat Sugar-Free Packet -] Amlodipine Besylate [Norvasc -] 10 mg GT DAILY tablet 08/09/15 Chlorhexidine Gluconate [Peridex -] 15 ml MM BID cup 08/09/15 Insulin (Levemir) [Levemir Flexpen 25 units SQ HS pen 08/09/15 -] Insulin (Novolog) [Novolog Flexpen 3 units SQ Q6HPO pen 08/09/15 -] Insulin Sliding Scale [Novolog 0 units SQ Q6HPO pen 08/09/15 Vial Sliding Scale -] Lisinopril [Prinivil] 20 mg GT DAILY tablet 08/09/15 Metoprolol Tartrate Injection 5 mg IVPB Q6H PRN #0 vial 08/09/15 [Lopressor Injection -] Metoprolol Tartrate [Lopressor -] 100 mg GT BID tablet 08/09/15 Ondansetron Injection [Zofran 4 mg IVPB Q6H PRN #0 vial 08/09/15 Injection] Pantoprazole Suspension [Protonix 40 mg GT DAILY packet 08/09/15 Packets For Oral Suspension -] Vancomycin Oral Solution 125 mg GT Q6HPO ml 08/09/15 ASSESSMENT/PLAN: 75 year old male with PMHx of HTN, IDDM, inguinal hernia who presented to the ED with diverticular bleed s/p Righ hemicolectomy with 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 PT developed HCAP and completed 7 days course of vanc/zosyn on 12/01/15. no change in his outcome, weekly labs.stable. #. Fever resolved with mild leukocytosis, will get UA, urine culture, blood culture stat, Tylenol for fever. #. 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 #. Anoxic brain injury s/p brainstem CVAs , Mental status unchanged #. Respiratory failure secondary to anoxic brain injury - Cont trach collar , duonebs PRN ,Albuterol neb PRN # HTN Cont lisinopril, metoprolol, amlodipine # Multiple pressure ulcers, Stage III sacrum healing - Stage II left ear healing, Turn and position q2h #. IDDM, Levemir 28 units HS - ISS BGM ACHS #. GI bleed: resolved s/p PEG - continue Tube feeds: glucerna now - PT for passive ROM CODE STATUS: DNR
[2016-02-28] MEDS: INSULIN DETEMIR 100 UNITS/ML MDV SQ SCH (22:08)
[2016-02-29] MEDS: INSULIN SLIDING SCALE (NOVOLOG) 1 VIAL SQ SCH ×2 (06:17→17:50)
[2016-02-29] MEDS: AMINO ACIDS/PROTEIN HYDROLYS SUGAR-FREE 30 ML PACKET PO SCH ×2 (08:55→18:49)
--- NOTE | 2016-02-29 09:13 | PN ---
Progress Note (short form) - Note Progress Note: no fever ,but tachycardic today. Vital Signs Temperature 97.6 F 02/29/16 06:00 Pulse Rate 120 H 02/29/16 06:00 Respiratory Rate 20 02/29/16 06:00 Blood Pressure 154/92 02/29/16 06:00 O2 Sat by Pulse Oximetry (%) 97 02/28/16 21:00 SKIN: Warm, dry, normal turgor, no rashes or lesions noted GENERAL: The patient has periods of somnolence, periods of wakefulness. Awake today EYES: Pupils equal, round and reactive to light, sclera anicteric, conjunctiva clear. ENT: Ears normal, Moist mucous membranes. Trach collar, thin, white/sharma secretions. NECK: Normal range of motion, supple without lymphadenopathy, JVD, or masses. LUNGS: Coarse breath sounds. No wheezes, and no crackles. HEART: Regular rate and rhythm, normal S1 and S2 without murmur, rub or gallop. ABDOMEN: Soft, nontender, normoactive bowel sounds. No guarding, no rebound. EXTREMITIES: 2+ pulses, warm, well-perfused, no edema. NEUROLOGICAL: Unable to assess. SKIN: Wounds not visualized today. CBCD WBC 12.7 K/mm3 (4.0-10.0) H 02/23/16 08:00 RBC 3.48 M/mm3 (4.00-5.60) L 02/23/16 08:00 Hgb 9.7 GM/dL (11.7-16.9) L 02/23/16 08:00 Hct 30.0 % (35.4-49) L 02/23/16 08:00 MCV 86.0 fl (80-96) 02/23/16 08:00 MCHC 32.3 g/dl (32.0-35.9) 02/23/16 08:00 RDW 15.4 % (11.9-15.9) 02/23/16 08:00 Plt Count 242 K/MM3 (134-434) 02/23/16 08:00 MPV 8.9 fl (7.5-11.1) 02/23/16 08:00 CMP Sodium 142 mmol/L (136-145) 02/12/16 08:00 Potassium 4.0 mmol/L (3.5-5.1) 02/12/16 08:00 Chloride 102 mmol/L (98-107) 02/12/16 08:00 Carbon Dioxide 33 mmol/L (21-32) H 02/12/16 08:00 Anion Gap 7 (8-16) L 02/12/16 08:00 BUN 26 mg/dL (7-18) H D 02/12/16 08:00 Creatinine 0.8 mg/dL (0.7-1.3) 02/12/16 08:00 Creat Clearance w eGFR > 60 (>60) 02/12/16 08:00 Random Glucose 139 mg/dL (74-106) H D 02/12/16 08:00 Calcium 9.8 mg/dL (8.5-10.1) 02/12/16 08:00 Total Bilirubin 0.2 mg/dL (0.2-1.0) D 02/12/16 08:00 AST 13 U/L (15-37) L 02/12/16 08:00 ALT 21 U/L (12-78) 02/12/16 08:00 Alkaline Phosphatase 97 U/L (45-117) 02/12/16 08:00 Total Protein 7.5 g/dl (6.4-8.2) 02/12/16 08:00 Albumin 3.0 g/dl (3.4-5.0) L 02/12/16 08:00 CARDIAC ENZYMES Creatine Kinase 62 IU/L (38-174) 06/28/15 09:35 Troponin I 0.07 ng/ml (0.03-0.5) D 07/09/15 05:00 Current Medications Generic Name Dose Route Start Last Admin Trade Name Freq PRN Reason Stop Dose Admin Acetaminophen 650 mg 12/29/15 10:43 02/22/16 18:47 Tylenol Oral Solution - GT 650 mg Q6H PRN Administration FEVER Amino Acids 30 ml 12/29/15 17:30 02/28/16 18:10 Prostat Sugar-Free Packet - PO 30 ml BID@0800,1730 KWAKU Administration Amlodipine Besylate 10 mg 12/30/15 10:00 02/28/16 11:43 Norvasc - GT 10 mg DAILY KWAKU Administration Guaifenesin 10 ml 12/29/15 10:43 02/13/16 11:20 Robitussin Dm - PO 10 ml Q6H PRN Administration COUGH Ibuprofen 200 mg 12/29/15 10:43 02/26/16 10:46 Motrin Oral Suspension - PO 200 mg Q6H PRN Administration FEVER Insulin Aspart 1 vial 01/28/16 16:30 02/29/16 06:17 Novolog Vial Sliding Scale - SQ 2 units BIDI KWAKU Administration Protocol Insulin Detemir 28 units 12/29/15 22:00 02/28/16 22:08 Levemir Vial SQ 28 units HS KWAKU Administration Lactobacillus Acidophilus 1 tab 12/30/15 10:00 02/28/16 11:42 Bacid - PO 1 tab DAILY KWAKU Administration Lisinopril 40 mg 12/30/15 10:00 02/28/16 11:43 Prinivil - GT 40 mg DAILY KWAKU Administration Metoprolol Tartrate 150 mg 12/29/15 22:00 02/28/16 22:05 Lopressor - GT 150 mg BID KWAKU Administration Metoprolol Tartrate 5 mg 12/29/15 10:43 Lopressor Injection - IVPB Q6H PRN HYPERTENSION Multivitamins 5 ml 12/30/15 10:00 02/28/16 11:43 Thera-Plus - GT 5 ml DAILY KWAKU Administration Pantoprazole Sodium 40 mg 12/30/15 10:00 02/28/16 11:43 Protonix Packets For Oral Suspension - GT 40 mg DAILY KWAKU Administration Urine Test Results Urine Color Yellow 02/23/16 19:45 Urine Appearance Turbid 02/23/16 19:45 Urine pH 8.0 (5.0-8.0) D 02/23/16 19:45 Ur Specific [place] 1.014 (1.001-1.035) 02/23/16 19:45 Urine Protein 1+ (NEGATIVE) H 02/23/16 19:45 Urine Glucose (UA) Negative (NEGATIVE) 02/23/16 19:45 Urine Ketones Negative (NEGATIVE) 02/23/16 19:45 Urine Blood Negative (NEGATIVE) 02/23/16 19:45 Urine Nitrite Negative (NEGATIVE) 02/23/16 19:45 Urine Bilirubin Negative (NEGATIVE) 02/23/16 19:45 Ur Leukocyte Esterase 3+ (NEGATIVE) H 02/23/16 19:45 Urine RBC 2 /hpf (0-3) 02/23/16 19:45 Urine WBC 47 /hpf (3-5) 02/23/16 19:45 Ur Epithelial Cells Rare /hpf (FEW) 02/23/16 19:45 Urine Bacteria Many /hpf (NEGATIVE) 01/29/16 14:44 Urine Mucus Rare 02/23/16 19:45 Microbiology 02/23/16 17:35 Blood - Peripheral Venous Blood Culture - Final NO GROWTH AFTER 5 DAYS INCUBATION 02/23/16 17:35 Blood - Peripheral Venous Blood Culture - Final NO GROWTH AFTER 5 DAYS INCUBATION 02/27/16 14:15 Urine - Urine Clean Catch Urine Culture - Final Contaminated: Please Repeat 02/23/16 19:45 Urine - Urine Schwartz Urine Culture - Final Contaminated: Please Repeat 01/29/16 11:05 Blood - Peripheral Venous Blood Culture - Final NO GROWTH AFTER 5 DAYS INCUBATION 01/29/16 11:05 Blood - Peripheral Venous Blood Culture - Final NO GROWTH AFTER 5 DAYS INCUBATION 01/30/16 08:00 Sputum - Endotracheal Suction W/O Vent Gram Stain - Final 01/30/16 08:00 Sputum - Endotracheal Suction W/O Vent Sputum Culture - Final Acinetobacter Baumannii/Haemol 01/29/16 22:12 Stool Clostridium difficile Antigen (MACHO) - Final 01/29/16 22:12 Stool Clostridium difficile Toxin Assay - Final 01/29/16 14:44 Urine - Urine - Catheterized Urine Culture - Final NO GROWTH OBTAINED ASSESSMENT/PLAN: 75 year old male with PMHx of HTN, IDDM, inguinal hernia who presented to the ED with diverticular bleed s/p Righ hemicolectomy with 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 PT developed HCAP and completed 7 days course of vanc/zosyn on 12/01/15. no change in his outcome, weekly labs.stable. #. Acute UTI , low grade fever on and off ,with tachycardia , Tylenol for fever. Repeat labs in am , will start Rocephin 1gm daily. #. 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 #. Anoxic brain injury s/p brainstem CVAs , Mental status unchanged #. Respiratory failure secondary to anoxic brain injury - Cont trach collar , duonebs PRN ,Albuterol neb PRN # HTN Cont lisinopril, metoprolol, amlodipine # Multiple pressure ulcers, Stage III sacrum healing - Stage II left ear healing, Turn and position q2h #. IDDM, Levemir 28 units HS - ISS BGM ACHS #. GI bleed: resolved s/p PEG - continue Tube feeds: glucerna now - PT for passive ROM CODE STATUS: DNR
[2016-02-29] MEDS: LACTOBACILLUS ACIDOPHILUS 1 EACH TAB (FP) PO SCH (11:05)
[2016-02-29] MEDS: PANTOPRAZOLE SOD 40 MG SUSPENSION PACKET GT SCH ×2 (11:06→11:27)
[2016-02-29] MEDS: LISINOPRIL 20 MG TABLET (FP) GT SCH (11:06)
[2016-02-29] MEDS: amLODIPine BESYLATE 10 MG TABLET (FP) GT SCH (11:06)
[2016-02-29] MEDS: METOPROLOL TARTRATE 50 MG TABLET (FP) GT SCH ×2 (11:28→21:53)
[2016-02-29] MEDS: MULTIVITAMINS THERAPEUTIC GT SCH (11:28)
[2016-02-29] MEDS: INSULIN DETEMIR 100 UNITS/ML MDV SQ SCH (21:53)
[2016-03-01] MEDS: INSULIN SLIDING SCALE (NOVOLOG) 1 VIAL SQ SCH ×2 (06:36→17:32)
[2016-03-01 08:25] LABS: BASOPHIL 0.6 % (0-2.0); EOSINOPHIL 2.9 % (0-4.5); MCH 27.9 pg (25.7-33.7); MCHC 32.8 g/dl (32.0-35.9); MEAN CELL VOLUME 85.1 fl (80-96); MEAN PLT VOLUME 8.3 fl (7.5-11.1); NEUTROPHILS 69.2 % (42.8-82.8); PLATELET COUNT 223 K/MM3 (134-434); RDW 14.9 % (11.9-15.9); WHITE BLOOD COUNT 11.9 K/mm3 (4.0-10.0)
[2016-03-01] MEDS: METOPROLOL TARTRATE 50 MG TABLET (FP) GT SCH ×2 (10:00→22:50)
[2016-03-01] MEDS: AMINO ACIDS/PROTEIN HYDROLYS SUGAR-FREE 30 ML PACKET PO SCH (10:00)
[2016-03-01] MEDS: cefTRIAXone 1 GM/50 ML BAG (PRE-DOCKED) IVPB SCH (10:00)
[2016-03-01] MEDS: LISINOPRIL 20 MG TABLET (FP) GT SCH (10:00)
[2016-03-01] MEDS: LACTOBACILLUS ACIDOPHILUS 1 EACH TAB (FP) PO SCH (10:00)
[2016-03-01] MEDS: amLODIPine BESYLATE 10 MG TABLET (FP) GT SCH (10:00)
[2016-03-01] MEDS: PANTOPRAZOLE SOD 40 MG SUSPENSION PACKET GT SCH (10:00)
[2016-03-01] MEDS: MULTIVITAMINS THERAPEUTIC GT SCH (18:19)
--- NOTE | 2016-03-01 20:12 | PN ---
Progress Note (short form) - Note Progress Note: Subjective: unable to obtain hx. no events over night . had 3 loose BM today Objective: Last Vital Signs Temp Pulse Resp BP Pulse Ox 99.4 F 89 16 150/89 98 03/01/16 16:45 03/01/16 16:45 03/01/16 16:45 03/01/16 16:45 03/01/16 11:42 Physical Exam: NAD. eyes open CV: RRR, no MRG lungs: slightly course breath sounds ext: no edema on legs. abd: soft, NT, ND , nl BS. PEG in place with intact skin . Laboratory Results - last 24 hr 02/29/16 03/01/16 03/01/16 21:37 06:19 07:45 WBC 11.9 H RBC 3.49 L Hgb 9.7 L Hct 29.7 L MCV 85.1 MCHC 32.8 RDW 14.9 Plt Count 223 MPV 8.3 Neutrophils % 69.2 Lymphocytes % 21.4 D Monocytes % 5.9 Eosinophils % 2.9 Basophils % 0.6 POC Glucometer 162 166 03/01/16 17:31 WBC RBC Hgb Hct MCV MCHC RDW Plt Count MPV Neutrophils % Lymphocytes % Monocytes % Eosinophils % Basophils % POC Glucometer 145 Assessment/Plan: 75 yo M with PMH HTN, DM, inguinal hernia a/w BRBPR and melena with multiple syncopal episodes. Dx with persistent diverticular bleed with R hemicolectomy, course complicated with CVA now in the ICU unresponsive and anoxic brain injury had tracheostomy on 07/23. also s/p PEG placement and iliac artery bleed s /p embolization 09/03/15. received a course of ABx for HCAp in Oct/nov 1- fever:resolved 2- b/l DVTS s/p IVC filter 3- GI bleed: resolved 4- anoxic brain injury 5- s/p Trach 07/23. s/p PEG 6- DM . 7- HTN 8-mild leukocytosis 9- loose stool Plan: -check c diff due to llose stool - cont antihypertensive meds - cont insulin - cont glucerna , cont free water with TF - TEds
[2016-03-01] MEDS: INSULIN DETEMIR 100 UNITS/ML MDV SQ SCH (22:50)
[2016-03-01] MEDS: ACETAMINOPHEN 650 MG/20.3 ML ORAL SOLUTION (CUPS) GT PRN (23:28)
[2016-03-02] MEDS: ACETAMINOPHEN 650 MG/20.3 ML ORAL SOLUTION (CUPS) GT PRN (05:07)
[2016-03-02] MEDS: INSULIN SLIDING SCALE (NOVOLOG) 1 VIAL SQ SCH ×2 (06:13→17:07)
[2016-03-02 09:26] LABS: ALBUMIN 2.9 g/dl (3.4-5.0); ANION GAP 7 (8-16); BILIRUBIN,TOTAL 0.2 mg/dL (0.2-1.0); CALCIUM 9.5 mg/dL (8.5-10.1); CO2 33 mmol/L (21-32); CREATININE 0.9 mg/dL (0.7-1.3); GLUCOSE,RANDOM 145 mg/dL (74-106); MAGNESIUM 2.1 mg/dL (1.8-2.4); SGOT/AST 15 U/L (15-37); SGPT/ALT 40 U/L (12-78); TOT PROT 7.8 g/dl (6.4-8.2)
[2016-03-02 09:27] LABS: ALK PHOS 106 U/L (45-117)
[2016-03-02] MEDS: PANTOPRAZOLE SOD 40 MG SUSPENSION PACKET GT SCH (11:46)
[2016-03-02] MEDS: MULTIVITAMINS THERAPEUTIC GT SCH (11:46)
[2016-03-02] MEDS: LISINOPRIL 20 MG TABLET (FP) GT SCH (11:46)
[2016-03-02] MEDS: METOPROLOL TARTRATE 50 MG TABLET (FP) GT SCH ×2 (11:46→23:02)
[2016-03-02] MEDS: LACTOBACILLUS ACIDOPHILUS 1 EACH TAB (FP) PO SCH (11:46)
[2016-03-02] MEDS: AMINO ACIDS/PROTEIN HYDROLYS SUGAR-FREE 30 ML PACKET PO SCH (11:47)
[2016-03-02] MEDS: amLODIPine BESYLATE 10 MG TABLET (FP) GT SCH (11:47)
[2016-03-02] MEDS: cefTRIAXone 1 GM/50 ML BAG (PRE-DOCKED) IVPB SCH (11:47)
--- NOTE | 2016-03-02 16:36 | PN ---
Progress Note (short form) - Note Progress Note: Subjective: unable to obtain hx. no events over night. Objective: Last Vital Signs Temp Pulse Resp BP Pulse Ox 100.4 F H 92 H 22 143/91 97 03/02/16 15:08 03/02/16 15:08 03/02/16 15:08 03/02/16 15:08 03/02/16 10:40 Physical Exam: NAD. eyes open CV: RRR, no MRG lungs: CTAB ext: no edema on legs. abd: soft, NT, ND , nl BS. PEG in place with intact skin. Laboratory Results - last 24 hr 03/01/16 03/02/16 03/02/16 17:31 06:11 07:45 Sodium 145 Potassium 3.6 Chloride 105 Carbon Dioxide 33 H Anion Gap 7 L BUN 27 H Creatinine 0.9 Creat Clearance w eGFR > 60 POC Glucometer 145 191 Random Glucose 145 H Calcium 9.5 Magnesium 2.1 Total Bilirubin 0.2 AST 15 ALT 40 D Alkaline Phosphatase 106 Total Protein 7.8 Albumin 2.9 L Assessment/Plan: 75 yo M with PMH HTN, DM, inguinal hernia a/w BRBPR and melena with multiple syncopal episodes. Dx with persistent diverticular bleed with R hemicolectomy, course complicated with CVA now in the ICU unresponsive and anoxic brain injury had tracheostomy on 07/23. also s/p PEG placement and iliac artery bleed s /p embolization 09/03/15. received a course of ABx for HCAp in Oct/nov 1- fever:resolved 2- b/l DVTS s/p IVC filter 3- GI bleed: resolved 4- anoxic brain injury 5- s/p Trach 07/23. s/p PEG 6- DM . 7- HTN 8- mild leukocytosis 9- loose stool Plan: -check c diff neg - cont antihypertensive meds - cont insulin - cont glucerna , cont free water with TF - TEds
[2016-03-02] MEDS: INSULIN DETEMIR 100 UNITS/ML MDV SQ SCH (23:01)
[2016-03-03] MEDS: INSULIN SLIDING SCALE (NOVOLOG) 1 VIAL SQ SCH ×2 (06:25→17:33)
[2016-03-03] MEDS: PANTOPRAZOLE SOD 40 MG SUSPENSION PACKET GT SCH (09:15)
[2016-03-03] MEDS: LACTOBACILLUS ACIDOPHILUS 1 EACH TAB (FP) PO SCH (09:15)
[2016-03-03] MEDS: AMINO ACIDS/PROTEIN HYDROLYS SUGAR-FREE 30 ML PACKET PO SCH (09:16)
[2016-03-03] MEDS: LISINOPRIL 20 MG TABLET (FP) GT SCH (09:16)
[2016-03-03] MEDS: amLODIPine BESYLATE 10 MG TABLET (FP) GT SCH (09:16)
[2016-03-03] MEDS: MULTIVITAMINS THERAPEUTIC GT SCH (09:17)
[2016-03-03] MEDS: METOPROLOL TARTRATE 50 MG TABLET (FP) GT SCH ×2 (09:17→22:27)
[2016-03-03] MEDS: cefTRIAXone 1 GM/50 ML BAG (PRE-DOCKED) IVPB SCH (09:17)
--- NOTE | 2016-03-03 16:17 | PN ---
Progress Note (short form) - Note Progress Note: Subjective: unable to obtain hx. no events over night. Objective: Last Vital Signs Temp Pulse Resp BP Pulse Ox 100.5 F H 84 20 147/90 97 03/03/16 14:45 03/03/16 14:45 03/03/16 14:45 03/03/16 09:14 03/03/16 10:05 Physical Exam: NAD. eyes open CV: RRR, no MRG lungs: CTAB ext: no edema on legs. abd: soft, NT, ND , nl BS. PEG in place with intact skin. sacral decub stage 2 smaller than before . Laboratory Results - last 24 hr 03/02/16 03/02/16 03/03/16 17:05 22:59 06:24 POC Glucometer 172 166 233 Assessment/Plan: 75 yo M with PMH HTN, DM, inguinal hernia a/w BRBPR and melena with multiple syncopal episodes. Dx with persistent diverticular bleed with R hemicolectomy, course complicated with CVA now in the ICU unresponsive and anoxic brain injury had tracheostomy on 07/23. also s/p PEG placement and iliac artery bleed s /p embolization 09/03/15. received a course of ABx for HCAp in Oct/nov 1- fever:resolved 2- b/l DVTS s/p IVC filter 3- GI bleed: resolved 4- anoxic brain injury 5- s/p Trach 07/23. s/p PEG 6- DM . 7- HTN 8- mild leukocytosis 9- loose stool Plan: -check c diff neg - cont antihypertensive meds - cont insulin - cont glucerna , cont free water with TF - TEds - wound care
[2016-03-03] MEDS: INSULIN DETEMIR 100 UNITS/ML MDV SQ SCH (22:27)
--- NOTE | 2016-03-04 06:00 | HOSP ---
Subjective - Review of Symptoms Events since last encounter: G tube misplaced while nursing was turning patient - Will get Abd. Xray - if misplaced needs Gi eval Physical Examination Vital Signs: Vital Signs Temperature 99.8 F H 03/03/16 17:30 Pulse Rate 92 H 03/03/16 22:26 Respiratory Rate 20 03/03/16 22:26 Blood Pressure 152/88 03/03/16 22:26 O2 Sat by Pulse Oximetry (%) 98 03/03/16 21:00 Labs: CBC, BMP 03/01/16 07:45 03/02/16 07:45
[2016-03-04] MEDS: INSULIN SLIDING SCALE (NOVOLOG) 1 VIAL SQ SCH ×2 (06:19→17:18)
[2016-03-04] MEDS: LACTOBACILLUS ACIDOPHILUS 1 EACH TAB (FP) PO SCH (10:42)
[2016-03-04] MEDS: AMINO ACIDS/PROTEIN HYDROLYS SUGAR-FREE 30 ML PACKET PO SCH (10:43)
[2016-03-04] MEDS: LISINOPRIL 20 MG TABLET (FP) GT SCH (10:43)
[2016-03-04] MEDS: METOPROLOL TARTRATE 50 MG TABLET (FP) GT SCH ×2 (10:43→21:48)
[2016-03-04] MEDS: amLODIPine BESYLATE 10 MG TABLET (FP) GT SCH (10:43)
[2016-03-04] MEDS: MULTIVITAMINS THERAPEUTIC GT SCH (10:44)
[2016-03-04] MEDS: PANTOPRAZOLE SOD 40 MG SUSPENSION PACKET GT SCH (10:44)
[2016-03-04] MEDS: cefTRIAXone 1 GM/50 ML BAG (PRE-DOCKED) IVPB SCH (12:49)
--- NOTE | 2016-03-04 13:41 | CONSULT ---
Consult Consult Specialty:: GI Referred by:: Hospitalist Reason for Consultation:: G-tube out - History of Present Illness Chief Complaint: G-tube pulled out History of Present Illness: Patient with multiple medical problems, respiratory failure on vent. Pulled out G-tube. - History Source History Provided By: Medical Record Limitations to Obtaining History: Clinical Condition - Past Medical History Cardio/Vascular: Yes: HTN Endocrine: Yes: Diabetes Mellitus - Past Surgical History Past Surgical History: Yes: Hernia Repair - Alcohol/Substance Use Hx Alcohol Use: No - Smoking History Smoking history: Never smoked Have you smoked in the past 12 months: No Aproximately how many cigarettes per day: 0 Home Medications - Allergies Allergies/Adverse Reactions: Allergies Allergy/AdvReac Type Severity Reaction Status Date / Time No Known Allergies Allergy Verified 06/26/15 21:31 - Home Medications Home Medications: Ambulatory Orders Amino Acids/Protein Hydrolys [Prostat Sugar-Free Packet -] 30 ml GT DAILY packet 08/09/15 Amlodipine Besylate [Norvasc -] 10 mg GT DAILY tablet 08/09/15 Chlorhexidine Gluconate [Peridex -] 15 ml MM BID cup 08/09/15 Insulin (Levemir) [Levemir Flexpen -] 25 units SQ HS pen 08/09/15 Insulin (Novolog) [Novolog Flexpen -] 3 units SQ Q6HPO pen 08/09/15 Insulin Sliding Scale [Novolog Vial Sliding Scale -] 0 units SQ Q6HPO pen 08/09 Lisinopril [Prinivil] 20 mg GT DAILY tablet 08/09/15 Metoprolol Tartrate Injection [Lopressor Injection -] 5 mg IVPB Q6H PRN #0 vial 08/09/15 Metoprolol Tartrate [Lopressor -] 100 mg GT BID tablet 08/09/15 Ondansetron Injection [Zofran Injection] 4 mg IVPB Q6H PRN #0 vial 08/09/15 Pantoprazole Suspension [Protonix Packets For Oral Suspension -] 40 mg GT DAILY packet 08/09/15 Vancomycin Oral Solution 125 mg GT Q6HPO ml 08/09/15 Family Disease History - Family Disease History Other Family History: non-contributory Physical Exam-GI Vital Signs: Vital Signs Temperature 98.1 F 03/04/16 06:00 Pulse Rate 103 H 05/07/16 11:35 Respiratory Rate 20 03/04/16 06:00 Blood Pressure 142/83 03/04/16 06:00 O2 Sat by Pulse Oximetry (%) 94 L 03/04/16 11:35 Constitutional: Yes: Cachectic HENT: Yes: Atraumatic Neck: Yes: Supple Cardiovascular: Yes: Regular Rate and Rhythm Respiratory: Yes: CTA Bilaterally, Mechanically Ventilated Gastrointestinal Inspection: Yes: WNL, Other (G-tube site with castellano in place) ...Auscultate: Yes: Normoactive Bowel Sounds ...Palpate: Yes: Soft Wound/Incision: Yes: [place] Removed Labs: CBC, BMP 03/01/16 07:45 03/02/16 07:45 INR, PTT INR 1.29 (0.80-1.00) H 12/26/15 08:45 Assessment/Plan 16 Fr G-tube placed through existing tract. Uncomplicated and well-tolerated. Get gastrograffin study to determine placement, and then resume TF-same formula at same rate
--- NOTE | 2016-03-04 19:08 | PN ---
Progress Note (short form) - Note Progress Note: Subjective: unable to obtain hx. no events over night. last night PEG tube was dislodged Objective: Last Vital Signs Temp Pulse Resp BP Pulse Ox 98.6 F 116 H 20 143/95 94 L 03/04/16 17:00 03/04/16 17:00 03/04/16 17:00 03/04/16 17:00 03/04/16 11:35 Physical Exam: NAD. eyes open CV: RRR, no MRG lungs: CTAB ext: no edema on legs. abd: soft, NT, ND , nl BS. sacral decub stage 2 was not examined . Laboratory Results - last 24 hr 03/03/16 03/04/16 03/04/16 22:25 06:18 16:52 POC Glucometer 160 133 92 Assessment/Plan: 75 yo M with PMH HTN, DM, inguinal hernia a/w BRBPR and melena with multiple syncopal episodes. Dx with persistent diverticular bleed with R hemicolectomy, course complicated with CVA now in the ICU unresponsive and anoxic brain injury had tracheostomy on 07/23. also s/p PEG placement and iliac artery bleed s /p embolization 09/03/15. received a course of ABx for HCAp in Oct/nov 1- fever:resolved 2- b/l DVTS s/p IVC filter 3- GI bleed: resolved 4- anoxic brain injury 5- s/p Trach 07/23. s/p PEG 6- DM . 7- HTN 8- mild leukocytosis 9- loose stool 10 dislodged PEG last night Plan: - PEG replaced by TAYE Cain conformed placement . .resume TF - cont antihypertensive meds - cont insulin - cont glucerna , cont free water with TF - TEds - wound care
--- NOTE | 2016-03-04 22:06 | HOSP ---
Subjective - Review of Symptoms Events since last encounter: Peg fell out - will keep pt. npo - start D5 1/2 ns since pt. is diabetic and got insulin - Gi eval in am Physical Examination Vital Signs: Vital Signs Temperature 98.6 F 03/04/16 17:00 Pulse Rate 116 H 03/04/16 17:00 Respiratory Rate 20 03/04/16 17:00 Blood Pressure 143/95 03/04/16 17:00 O2 Sat by Pulse Oximetry (%) 94 L 03/04/16 11:35 Labs: CBC, BMP 03/01/16 07:45 03/02/16 07:45
[2016-03-04] MEDS: INSULIN DETEMIR 100 UNITS/ML MDV SQ SCH (22:34)
[2016-03-05] MEDS: INSULIN SLIDING SCALE (NOVOLOG) 1 VIAL SQ SCH ×2 (06:26→17:21)
[2016-03-05] MEDS: METOPROLOL TARTRATE 50 MG TABLET (FP) GT SCH ×2 (09:28→23:28)
[2016-03-05] MEDS: LACTOBACILLUS ACIDOPHILUS 1 EACH TAB (FP) PO SCH (09:28)
[2016-03-05] MEDS: amLODIPine BESYLATE 10 MG TABLET (FP) GT SCH (09:28)
[2016-03-05] MEDS: MULTIVITAMINS THERAPEUTIC GT SCH (09:29)
[2016-03-05] MEDS: LISINOPRIL 20 MG TABLET (FP) GT SCH (09:29)
[2016-03-05] MEDS: AMINO ACIDS/PROTEIN HYDROLYS SUGAR-FREE 30 ML PACKET PO SCH (09:29)
[2016-03-05] MEDS: PANTOPRAZOLE SOD 40 MG SUSPENSION PACKET GT SCH (09:29)
[2016-03-05] MEDS: cefTRIAXone 1 GM/50 ML BAG (PRE-DOCKED) IVPB SCH (09:31)
--- NOTE | 2016-03-05 16:17 | PN ---
Progress Note (short form) - Note Progress Note: Subjective: unable to obtain hx. no events over night. last night pt pulled his PEG again, it was not possible to place a castellano in place Objective: Last Vital Signs Temp Pulse Resp BP Pulse Ox 99.7 F H 116 H 20 153/93 98 03/05/16 14:52 03/05/16 14:52 03/05/16 14:52 03/05/16 10:00 03/05/16 10:19 Physical Exam: NAD. eyes open CV: RRR, no MRG lungs: CTAB ext: no edema on legs. abd: soft, NT, ND , nl BS. no PRG in place sacral decub stage 2 was not examined . Laboratory Results - last 24 hr 03/04/16 03/04/16 03/05/16 16:52 22:12 06:23 POC Glucometer 92 137 116 Assessment/Plan: 75 yo M with PMH HTN, DM, inguinal hernia a/w BRBPR and melena with multiple syncopal episodes. Dx with persistent diverticular bleed with R hemicolectomy, course complicated with CVA now in the ICU unresponsive and anoxic brain injury had tracheostomy on 07/23. also s/p PEG placement and iliac artery bleed s /p embolization 09/03/15. received a course of ABx for HCAp in Oct/nov 1- fever:alst on 03/03 2- b/l DVTS s/p IVC filter 3- GI bleed: resolved 4- anoxic brain injury 5- s/p Trach 07/23. s/p PEG 6- DM . 7- HTN 8- mild leukocytosis 9- loose stool 10 dislodged PEG last night again Plan: - Dr. Cast notified of the PEG situation earlier this am - will plcae a c/s for Dr. Quezada for pEG insertion - increase rate of IVF as pt is tachycardic - d/c CTx ( day 6) , as urine cx neg - cont antihypertensive meds - cont insulin - will resume glucerna when PE is placed - repeat labs - TEds - wound care d/w SOLE
[2016-03-05] MEDS: DEXTROSE 5%-0.45% SALINE 1,000 ML IV SCH (17:53)
[2016-03-05] MEDS: INSULIN DETEMIR 100 UNITS/ML MDV SQ SCH (22:55)
[2016-03-06] MEDS: INSULIN SLIDING SCALE (NOVOLOG) 1 VIAL SQ SCH ×2 (06:09→17:22)
[2016-03-06 07:56] LABS: BASOPHIL 1.1 % (0-2.0); EOSINOPHIL 3.1 % (0-4.5); MCH 27.7 pg (25.7-33.7); MCHC 32.6 g/dl (32.0-35.9); NEUTROPHILS 71.6 % (42.8-82.8); PLATELET COUNT 269 K/MM3 (134-434); RDW 15.2 % (11.9-15.9); WHITE BLOOD COUNT 9.9 K/mm3 (4.0-10.0)
[2016-03-06 08:27] LABS: CREATININE 0.9 mg/dL (0.7-1.3)
--- NOTE | 2016-03-06 10:31 | PN ---
Progress Note (short form) - Note Progress Note: Subjective: unable to obtain hx. no events over night. no events overnight Objective: Last Vital Signs Temp Pulse Resp BP Pulse Ox 99.0 F 116 H 18 145/88 98 03/06/16 05:30 03/06/16 05:30 03/06/16 05:30 03/06/16 05:30 03/05/16 21:00 Physical Exam: NAD. sleeping CV: RRR, no MRG lungs: CTAB. ext: no edema on legs. abd: soft, NT, ND , nl BS. sacral decub stage 2 was not examined. Laboratory Results - last 24 hr 03/05/16 03/06/16 03/06/16 16:55 05:55 06:30 WBC 9.9 RBC 3.71 L Hgb 10.3 L Hct 31.6 L MCV 85.0 MCHC 32.6 RDW 15.2 Plt Count 269 D MPV 9.0 Neutrophils % 71.6 Lymphocytes % 19.3 Monocytes % 4.9 Eosinophils % 3.1 Basophils % 1.1 Sodium Potassium Chloride Carbon Dioxide Anion Gap BUN Creatinine POC Glucometer 130 142 Random Glucose Calcium 03/06/16 06:30 WBC RBC Hgb Hct MCV MCHC RDW Plt Count MPV Neutrophils % Lymphocytes % Monocytes % Eosinophils % Basophils % Sodium 148 H Potassium 3.5 Chloride 110 H Carbon Dioxide 31 Anion Gap 7 L BUN 15 D Creatinine 0.9 POC Glucometer Random Glucose 127 H Calcium 10.0 Assessment/Plan: 75 yo M with PMH HTN, DM, inguinal hernia a/w BRBPR and melena with multiple syncopal episodes. Dx with persistent diverticular bleed with R hemicolectomy, course complicated with CVA now in the ICU unresponsive and anoxic brain injury had tracheostomy on 07/23. also s/p PEG placement and iliac artery bleed s /p embolization 09/03/15. received a course of ABx for HCAp in Oct/nov 1- fever: resolved 2- b/l DVTS s/p IVC filter 3- GI bleed: resolved 4- anoxic brain injury 5- s/p Trach 07/23. s/p PEG 6- DM . 7- HTN 8- mild leukocytosis : resolved 9- loose stool 10 - dislodged PEG tube 11- hypernatremia due to dehydration Plan: - PEg to be placed by IR - cont IVF , and resume free water with feeding once PEG in place to correct hypernatremia and dehydration - off abx - cont antihypertensive meds - cont insulin - repeat BMP in am - TEds - wound care
[2016-03-06] MEDS: LACTOBACILLUS ACIDOPHILUS 1 EACH TAB (FP) PO SCH (11:45)
[2016-03-06] MEDS: amLODIPine BESYLATE 10 MG TABLET (FP) GT SCH (11:45)
[2016-03-06] MEDS: METOPROLOL TARTRATE 50 MG TABLET (FP) GT SCH ×2 (11:45→22:58)
[2016-03-06] MEDS: PANTOPRAZOLE SOD 40 MG SUSPENSION PACKET GT SCH (11:46)
[2016-03-06] MEDS: LISINOPRIL 20 MG TABLET (FP) GT SCH (11:46)
[2016-03-06] MEDS: AMINO ACIDS/PROTEIN HYDROLYS SUGAR-FREE 30 ML PACKET PO SCH (11:46)
[2016-03-06] MEDS: MULTIVITAMINS THERAPEUTIC GT SCH (11:47)
[2016-03-06] MEDS: DEXTROSE 5%-0.45% SALINE 1,000 ML IV SCH (22:58)
[2016-03-06] MEDS: INSULIN DETEMIR 100 UNITS/ML MDV SQ SCH (22:58)
[2016-03-07] MEDS: INSULIN SLIDING SCALE (NOVOLOG) 1 VIAL SQ SCH ×2 (07:29→17:20)
[2016-03-07] MEDS: LACTOBACILLUS ACIDOPHILUS 1 EACH TAB (FP) PO SCH (11:23)
[2016-03-07] MEDS: METOPROLOL TARTRATE 50 MG TABLET (FP) GT SCH ×2 (11:23→21:34)
[2016-03-07] MEDS: amLODIPine BESYLATE 10 MG TABLET (FP) GT SCH (11:23)
[2016-03-07] MEDS: MULTIVITAMINS THERAPEUTIC GT SCH (11:24)
[2016-03-07] MEDS: AMINO ACIDS/PROTEIN HYDROLYS SUGAR-FREE 30 ML PACKET PO SCH (11:24)
[2016-03-07] MEDS: PANTOPRAZOLE SOD 40 MG SUSPENSION PACKET GT SCH (11:24)
[2016-03-07] MEDS: LISINOPRIL 20 MG TABLET (FP) GT SCH (11:24)
[2016-03-07] MEDS: DEXTROSE 5%-0.45% SALINE 1,000 ML IV SCH (17:18)
[2016-03-07] MEDS: INSULIN DETEMIR 100 UNITS/ML MDV SQ SCH (21:34)
[2016-03-08] MEDS: INSULIN SLIDING SCALE (NOVOLOG) 1 VIAL SQ SCH ×2 (06:20→17:08)
--- NOTE | 2016-03-08 10:19 | PN ---
Progress Note (short form) - Note Progress Note: comfortable, no acute distress s/p G-tube placement today. Vital Signs Temperature 98.8 F 03/08/16 06:00 Pulse Rate 106 H 03/08/16 06:00 Respiratory Rate 18 03/08/16 06:00 Blood Pressure 141/89 03/08/16 06:00 O2 Sat by Pulse Oximetry (%) 99 03/07/16 21:00 SKIN: Warm, dry, normal turgor, no rashes or lesions noted GENERAL: The patient has periods of somnolence, periods of wakefulness. EYES: Pupils equal, round and reactive to light, sclera anicteric, conjunctiva clear. ENT: Ears normal, Moist mucous membranes. positive for Trach collar, thin, white /sharma secretions. NECK: Normal range of motion, supple without lymphadenopathy, no JVD, or masses. LUNGS: Coarse breath sounds. No wheezes, and no crackles. HEART: Regular rate and rhythm, normal S1 and S2 without murmur, rub or gallop. ABDOMEN: Soft, nontender, normoactive bowel sounds. No guarding, no rebound. EXTREMITIES: 2+ pulses, warm, well-perfused, no edema. NEUROLOGICAL: Unable to assess. SKIN: Wounds not visualized today. CBCD WBC 9.9 K/mm3 (4.0-10.0) 03/06/16 06:30 RBC 3.71 M/mm3 (4.00-5.60) L 03/06/16 06:30 Hgb 10.3 GM/dL (11.7-16.9) L 03/06/16 06:30 Hct 31.6 % (35.4-49) L 03/06/16 06:30 MCV 85.0 fl (80-96) 03/06/16 06:30 MCHC 32.6 g/dl (32.0-35.9) 03/06/16 06:30 RDW 15.2 % (11.9-15.9) 03/06/16 06:30 Plt Count 269 K/MM3 (134-434) D 03/06/16 06:30 MPV 9.0 fl (7.5-11.1) 03/06/16 06:30 CMP Sodium 147 mmol/L (136-145) H 03/07/16 06:20 Potassium 3.5 mmol/L (3.5-5.1) 03/06/16 06:30 Chloride 110 mmol/L (98-107) H 03/06/16 06:30 Carbon Dioxide 31 mmol/L (21-32) 03/06/16 06:30 Anion Gap 7 (8-16) L 03/06/16 06:30 BUN 15 mg/dL (7-18) D 03/06/16 06:30 Creatinine 0.9 mg/dL (0.7-1.3) 03/06/16 06:30 Creat Clearance w eGFR > 60 (>60) 03/02/16 07:45 Random Glucose 127 mg/dL (74-106) H 03/06/16 06:30 Calcium 10.0 mg/dL (8.5-10.1) 03/06/16 06:30 Total Bilirubin 0.2 mg/dL (0.2-1.0) 03/02/16 07:45 AST 15 U/L (15-37) 03/02/16 07:45 ALT 40 U/L (12-78) D 03/02/16 07:45 Alkaline Phosphatase 106 U/L (45-117) 03/02/16 07:45 Total Protein 7.8 g/dl (6.4-8.2) 03/02/16 07:45 Albumin 2.9 g/dl (3.4-5.0) L 03/02/16 07:45 CARDIAC ENZYMES Creatine Kinase 62 IU/L (38-174) 06/28/15 09:35 Troponin I 0.07 ng/ml (0.03-0.5) D 07/09/15 05:00 Current Medications Generic Name Dose Route Start Last Admin Trade Name Freq PRN Reason Stop Dose Admin Acetaminophen 650 mg 12/29/15 10:43 03/02/16 05:07 Tylenol Oral Solution - GT 650 mg Q6H PRN Administration FEVER Amino Acids 30 ml 03/01/16 10:00 03/07/16 11:24 Prostat Sugar-Free Packet - PO Not Given DAILY [facility] Amlodipine Besylate 10 mg 12/30/15 10:00 03/07/16 11:23 Norvasc - GT Not Given DAILY [facility] Guaifenesin 10 ml 12/29/15 10:43 02/13/16 11:20 Robitussin Dm - PO 10 ml Q6H PRN Administration COUGH Dextrose/Sodium Chloride 1,000 mls @ 75 mls/hr 03/05/16 16:13 03/07/16 17:18 D5-1/2ns - IV Not Given ASDIR [facility] Ibuprofen 200 mg 12/29/15 10:43 02/26/16 10:46 Motrin Oral Suspension - PO 200 mg Q6H PRN Administration FEVER Insulin Aspart 1 vial 01/28/16 16:30 03/08/16 06:20 Novolog Vial Sliding Scale - SQ Not Given BIDI [facility] Protocol Insulin Detemir 28 units 12/29/15 22:00 03/07/16 21:34 Levemir Vial SQ Not Given HS [facility] Lactobacillus Acidophilus 1 tab 12/30/15 10:00 03/07/16 11:23 Bacid - PO Not Given DAILY [facility] Lisinopril 40 mg 12/30/15 10:00 03/07/16 11:24 Prinivil - GT Not Given DAILY [facility] Metoprolol Tartrate 150 mg 12/29/15 22:00 03/07/16 21:34 Lopressor - GT Not Given BID [facility] Metoprolol Tartrate 5 mg 12/29/15 10:43 Lopressor Injection - IVPB Q6H PRN HYPERTENSION Multivitamins 5 ml 12/30/15 10:00 03/07/16 11:24 Thera-Plus - GT Not Given DAILY [facility] Pantoprazole Sodium 40 mg 12/30/15 10:00 03/07/16 11:24 Protonix Packets For Oral Suspension - GT Not Given DAILY [facility] Assessment/Plan: 75 yo M with PMH HTN, DM, inguinal hernia a/w BRBPR and melena with multiple syncopal episodes. Dx with persistent diverticular bleed with R hemicolectomy, course complicated with CVA now in the ICU unresponsive and anoxic brain injury had tracheostomy on 07/23. also s/p PEG placement and iliac artery bleed s /p embolization 09/03/15. received a course of ABx for HCAp in Oct/nov 1- s/p Leukocytosis and fever: resolved 2- b/l DVTS s/p IVC filter; anticoagulation is contraindicated due to severe GI bleed 3- GI bleed: resolved 4- anoxic brain injury 5- s/p Trach 07/23. s/p G-tube placement by IR today 6- DM controlled cont insulin 7- HTN cont antihypertensive meds 8- loose stool 9 - dislodged G-tube 10- hypernatremia due to dehydration - TEds - wound care - PEg to be placed by IR - cont IVF , and resume free water with feeding once PEG in place to correct hypernatremia and dehydration - off abx - cont antihypertensive meds - cont insulin - repeat BMP in am - TEds - wound care - wound care - TEds - wound care
[2016-03-08] MEDS: DEXTROSE 5%-0.45% SALINE 1,000 ML IV SCH (10:20)
[2016-03-08] MEDS: LACTOBACILLUS ACIDOPHILUS 1 EACH TAB (FP) PO SCH (11:02)
[2016-03-08] MEDS: METOPROLOL TARTRATE 50 MG TABLET (FP) GT SCH ×2 (11:03→22:58)
[2016-03-08] MEDS: LISINOPRIL 20 MG TABLET (FP) GT SCH (11:03)
[2016-03-08] MEDS: amLODIPine BESYLATE 10 MG TABLET (FP) GT SCH (11:03)
[2016-03-08] MEDS: AMINO ACIDS/PROTEIN HYDROLYS SUGAR-FREE 30 ML PACKET PO SCH (11:04)
[2016-03-08] MEDS: PANTOPRAZOLE SOD 40 MG SUSPENSION PACKET GT SCH (11:04)
[2016-03-08] MEDS: MULTIVITAMINS THERAPEUTIC GT SCH (11:05)
[2016-03-09] MEDS: DEXTROSE 5%-0.45% SALINE 1,000 ML IV SCH (02:00)
[2016-03-09] MEDS: INSULIN DETEMIR 100 UNITS/ML MDV SQ SCH ×2 (02:15→22:53)
[2016-03-09] MEDS: INSULIN SLIDING SCALE (NOVOLOG) 1 VIAL SQ SCH ×2 (06:12→17:13)
[2016-03-09] MEDS: METOPROLOL TARTRATE 50 MG TABLET (FP) GT SCH ×2 (12:40→22:53)
[2016-03-09] MEDS: AMINO ACIDS/PROTEIN HYDROLYS SUGAR-FREE 30 ML PACKET PO SCH (12:40)
[2016-03-09] MEDS: LISINOPRIL 20 MG TABLET (FP) GT SCH (12:41)
[2016-03-09] MEDS: LACTOBACILLUS ACIDOPHILUS 1 EACH TAB (FP) PO SCH (12:41)
[2016-03-09] MEDS: amLODIPine BESYLATE 10 MG TABLET (FP) GT SCH (12:41)
[2016-03-09] MEDS: PANTOPRAZOLE SOD 40 MG SUSPENSION PACKET GT SCH (12:42)
[2016-03-09] MEDS: MULTIVITAMINS THERAPEUTIC GT SCH (12:42)
--- NOTE | 2016-03-09 15:20 | PN ---
Progress Note (short form) - Note Progress Note: s/p G-tube placement. Vital Signs Temperature 99.5 F 03/09/16 14:00 Pulse Rate 75 03/09/16 14:00 Respiratory Rate 19 03/09/16 14:00 Blood Pressure 146/90 03/09/16 14:00 O2 Sat by Pulse Oximetry (%) 99 03/09/16 10:00 SKIN: Warm, dry, normal turgor, no rashes or lesions noted GENERAL: The patient has periods of somnolence, periods of wakefulness. EYES: Pupils equal, round and reactive to light, sclera anicteric, conjunctiva clear. ENT: Ears normal, Moist mucous membranes. positive for Trach collar, thin, white /sharma secretions. NECK: Normal range of motion, supple without lymphadenopathy, no JVD, or masses. LUNGS: Coarse breath sounds. No wheezes, and no crackles. HEART: Regular rate and rhythm, normal S1 and S2 without murmur, rub or gallop. ABDOMEN: Soft, nontender, normoactive bowel sounds. positive for G-tube EXTREMITIES: 2+ pulses, warm, well-perfused, no edema. NEUROLOGICAL: Unable to assess. SKIN: Wounds not visualized today. CBCD WBC 9.9 K/mm3 (4.0-10.0) 03/06/16 06:30 RBC 3.71 M/mm3 (4.00-5.60) L 03/06/16 06:30 Hgb 10.3 GM/dL (11.7-16.9) L 03/06/16 06:30 Hct 31.6 % (35.4-49) L 03/06/16 06:30 MCV 85.0 fl (80-96) 03/06/16 06:30 MCHC 32.6 g/dl (32.0-35.9) 03/06/16 06:30 RDW 15.2 % (11.9-15.9) 03/06/16 06:30 Plt Count 269 K/MM3 (134-434) D 03/06/16 06:30 MPV 9.0 fl (7.5-11.1) 03/06/16 06:30 CMP Sodium 147 mmol/L (136-145) H 03/07/16 06:20 Potassium 3.5 mmol/L (3.5-5.1) 03/06/16 06:30 Chloride 110 mmol/L (98-107) H 03/06/16 06:30 Carbon Dioxide 31 mmol/L (21-32) 03/06/16 06:30 Anion Gap 7 (8-16) L 03/06/16 06:30 BUN 15 mg/dL (7-18) D 03/06/16 06:30 Creatinine 0.9 mg/dL (0.7-1.3) 03/06/16 06:30 Creat Clearance w eGFR > 60 (>60) 03/02/16 07:45 Random Glucose 127 mg/dL (74-106) H 03/06/16 06:30 Calcium 10.0 mg/dL (8.5-10.1) 03/06/16 06:30 Total Bilirubin 0.2 mg/dL (0.2-1.0) 03/02/16 07:45 AST 15 U/L (15-37) 03/02/16 07:45 ALT 40 U/L (12-78) D 03/02/16 07:45 Alkaline Phosphatase 106 U/L (45-117) 03/02/16 07:45 Total Protein 7.8 g/dl (6.4-8.2) 03/02/16 07:45 Albumin 2.9 g/dl (3.4-5.0) L 03/02/16 07:45 CARDIAC ENZYMES Creatine Kinase 62 IU/L (38-174) 06/28/15 09:35 Troponin I 0.07 ng/ml (0.03-0.5) D 07/09/15 05:00 Current Medications Generic Name Dose Route Start Last Admin Trade Name Freq PRN Reason Stop Dose Admin Acetaminophen 650 mg 12/29/15 10:43 03/02/16 05:07 Tylenol Oral Solution - GT 650 mg Q6H PRN Administration FEVER Amino Acids 30 ml 03/01/16 10:00 03/09/16 12:40 Prostat Sugar-Free Packet - PO 30 ml DAILY [facility] Administration Amlodipine Besylate 10 mg 12/30/15 10:00 03/09/16 12:41 Norvasc - GT 10 mg DAILY [facility] Administration Guaifenesin 10 ml 12/29/15 10:43 02/13/16 11:20 Robitussin Dm - PO 10 ml Q6H PRN Administration COUGH Ibuprofen 200 mg 12/29/15 10:43 02/26/16 10:46 Motrin Oral Suspension - PO 200 mg Q6H PRN Administration FEVER Insulin Aspart 1 vial 01/28/16 16:30 03/09/16 06:12 Novolog Vial Sliding Scale - SQ 2 units BIDI [facility] Administration Protocol Insulin Detemir 28 units 12/29/15 22:00 03/09/16 02:15 Levemir Vial SQ 28 units HS [facility] Administration Lactobacillus Acidophilus 1 tab 12/30/15 10:00 03/09/16 12:41 Bacid - PO 1 tab DAILY [facility] Administration Lisinopril 40 mg 12/30/15 10:00 03/09/16 12:41 Prinivil - GT 40 mg DAILY [facility] Administration Metoprolol Tartrate 150 mg 12/29/15 22:00 03/09/16 12:40 Lopressor - GT 150 mg BID [facility] Administration Metoprolol Tartrate 5 mg 12/29/15 10:43 Lopressor Injection - IVPB Q6H PRN HYPERTENSION Multivitamins 5 ml 12/30/15 10:00 03/09/16 12:42 Thera-Plus - GT 5 ml DAILY [facility] Administration Pantoprazole Sodium 40 mg 12/30/15 10:00 03/09/16 12:42 Protonix Packets For Oral Suspension - GT 40 mg DAILY [facility] Administration Medication Instructions Recorded Amino Acids/Protein Hydrolys 30 ml GT DAILY packet 08/09/15 [Prostat Sugar-Free Packet -] Amlodipine Besylate [Norvasc -] 10 mg GT DAILY tablet 08/09/15 Chlorhexidine Gluconate [Peridex -] 15 ml MM BID cup 08/09/15 Insulin (Levemir) [Levemir Flexpen 25 units SQ HS pen 08/09/15 -] Insulin (Novolog) [Novolog Flexpen 3 units SQ Q6HPO pen 08/09/15 -] Insulin Sliding Scale [Novolog 0 units SQ Q6HPO pen 08/09/15 Vial Sliding Scale -] Lisinopril [Prinivil] 20 mg GT DAILY tablet 08/09/15 Metoprolol Tartrate Injection 5 mg IVPB Q6H PRN #0 vial 08/09/15 [Lopressor Injection -] Metoprolol Tartrate [Lopressor -] 100 mg GT BID tablet 08/09/15 Ondansetron Injection [Zofran 4 mg IVPB Q6H PRN #0 vial 08/09/15 Injection] Pantoprazole Suspension [Protonix 40 mg GT DAILY packet 08/09/15 Packets For Oral Suspension -] Vancomycin Oral Solution 125 mg GT Q6HPO ml 08/09/15 Assessment/Plan: 75 yo M with PMH HTN, DM, inguinal hernia a/w BRBPR and melena with multiple syncopal episodes. Dx with persistent diverticular bleed with R hemicolectomy, course complicated with CVA now in the ICU unresponsive and anoxic brain injury had tracheostomy on 07/23. also s/p PEG placement and iliac artery bleed s /p embolization 09/03/15. received a course of ABx for HCAp in Oct/nov Elevate the head of the bed above 60 since patient is coughing on G-tube feeding when the head of bed down, needs above 60 the head not to aspirate. 1- s/p Leukocytosis and fever: resolved 2- b/l DVTS s/p IVC filter; anticoagulation is contraindicated due to severe GI bleed 3- GI bleed: resolved 4- anoxic brain injury 5- s/p Trach 07/23. s/p G-tube placement by IR today 6- DM controlled cont insulin 7- HTN cont antihypertensive meds 8 - dislodged G-tube s/p replacement of Gtube By IR 03/08/2016 9- hypernatremia due to dehydration - TEds - wound care ELevate HOB above 60 to avoid aspiration Glucerna 1.5 feeding 40cc/hr ---> goal 60cc/hr h20 is getting 50cc/hr
[2016-03-10] MEDS: INSULIN SLIDING SCALE (NOVOLOG) 1 VIAL SQ SCH ×2 (06:32→17:45)
[2016-03-10] MEDS: PANTOPRAZOLE SOD 40 MG SUSPENSION PACKET GT SCH (10:40)
[2016-03-10] MEDS: LACTOBACILLUS ACIDOPHILUS 1 EACH TAB (FP) PO SCH (10:40)
[2016-03-10] MEDS: LISINOPRIL 20 MG TABLET (FP) GT SCH (10:40)
[2016-03-10] MEDS: MULTIVITAMINS THERAPEUTIC GT SCH (10:41)
[2016-03-10] MEDS: METOPROLOL TARTRATE 50 MG TABLET (FP) GT SCH ×2 (10:41→22:26)
[2016-03-10] MEDS: AMINO ACIDS/PROTEIN HYDROLYS SUGAR-FREE 30 ML PACKET PO SCH (10:41)
[2016-03-10] MEDS: amLODIPine BESYLATE 10 MG TABLET (FP) GT SCH (10:41)
[2016-03-10] MEDS: INSULIN DETEMIR 100 UNITS/ML MDV SQ SCH (22:27)
--- NOTE | 2016-03-10 22:55 | PN ---
Progress Note (short form) - Note Progress Note: No new complain, comfortable Vital Signs Temperature 98.0 F 03/10/16 19:40 Pulse Rate 83 03/10/16 19:40 Respiratory Rate 20 03/10/16 19:40 Blood Pressure 145/92 03/10/16 19:40 O2 Sat by Pulse Oximetry (%) 97 03/10/16 18:49 SKIN: Warm, dry, normal turgor, no rashes or lesions noted GENERAL: The patient has periods of somnolence, periods of wakefulness. EYES: Pupils equal, round and reactive to light, sclera anicteric, conjunctiva clear. ENT: Ears normal, Moist mucous membranes. positive for Trach collar, thin, white /sharma secretions. NECK: Normal range of motion, supple without lymphadenopathy, no JVD, or masses. LUNGS: Coarse breath sounds. No wheezes, and no crackles. HEART: Regular rate and rhythm, normal S1 and S2 without murmur, rub or gallop. ABDOMEN: Soft, nontender, normoactive bowel sounds. positive for G-tube EXTREMITIES: 2+ pulses, warm, well-perfused, no edema. NEUROLOGICAL: Unable to assess. SKIN: Wounds not visualized today. CBCD WBC 9.9 K/mm3 (4.0-10.0) 03/06/16 06:30 RBC 3.71 M/mm3 (4.00-5.60) L 03/06/16 06:30 Hgb 10.3 GM/dL (11.7-16.9) L 03/06/16 06:30 Hct 31.6 % (35.4-49) L 03/06/16 06:30 MCV 85.0 fl (80-96) 03/06/16 06:30 MCHC 32.6 g/dl (32.0-35.9) 03/06/16 06:30 RDW 15.2 % (11.9-15.9) 03/06/16 06:30 Plt Count 269 K/MM3 (134-434) D 03/06/16 06:30 MPV 9.0 fl (7.5-11.1) 03/06/16 06:30 CMP Sodium 147 mmol/L (136-145) H 03/07/16 06:20 Potassium 3.5 mmol/L (3.5-5.1) 03/06/16 06:30 Chloride 110 mmol/L (98-107) H 03/06/16 06:30 Carbon Dioxide 31 mmol/L (21-32) 03/06/16 06:30 Anion Gap 7 (8-16) L 03/06/16 06:30 BUN 15 mg/dL (7-18) D 03/06/16 06:30 Creatinine 0.9 mg/dL (0.7-1.3) 03/06/16 06:30 Creat Clearance w eGFR > 60 (>60) 03/02/16 07:45 Random Glucose 127 mg/dL (74-106) H 03/06/16 06:30 Calcium 10.0 mg/dL (8.5-10.1) 03/06/16 06:30 Total Bilirubin 0.2 mg/dL (0.2-1.0) 03/02/16 07:45 AST 15 U/L (15-37) 03/02/16 07:45 ALT 40 U/L (12-78) D 03/02/16 07:45 Alkaline Phosphatase 106 U/L (45-117) 03/02/16 07:45 Total Protein 7.8 g/dl (6.4-8.2) 03/02/16 07:45 Albumin 2.9 g/dl (3.4-5.0) L 03/02/16 07:45 CARDIAC ENZYMES Creatine Kinase 62 IU/L (38-174) 06/28/15 09:35 Troponin I 0.07 ng/ml (0.03-0.5) D 07/09/15 05:00 Current Medications Generic Name Dose Route Start Last Admin Trade Name Freq PRN Reason Stop Dose Admin Acetaminophen 650 mg 12/29/15 10:43 03/02/16 05:07 Tylenol Oral Solution - GT 650 mg Q6H PRN Administration FEVER Amino Acids 30 ml 03/01/16 10:00 03/10/16 10:41 Prostat Sugar-Free Packet - PO 30 ml DAILY [facility] Administration Amlodipine Besylate 10 mg 12/30/15 10:00 03/10/16 10:41 Norvasc - GT 10 mg DAILY [facility] Administration Guaifenesin 10 ml 12/29/15 10:43 02/13/16 11:20 Robitussin Dm - PO 10 ml Q6H PRN Administration COUGH Ibuprofen 200 mg 12/29/15 10:43 02/26/16 10:46 Motrin Oral Suspension - PO 200 mg Q6H PRN Administration FEVER Insulin Aspart 1 vial 01/28/16 16:30 03/10/16 17:45 Novolog Vial Sliding Scale - SQ Not Given BIDI [facility] Protocol Insulin Detemir 28 units 12/29/15 22:00 03/10/16 22:27 Levemir Vial SQ 28 units HS [facility] Administration Lactobacillus Acidophilus 1 tab 12/30/15 10:00 03/10/16 10:40 Bacid - PO 1 tab DAILY [facility] Administration Lisinopril 40 mg 12/30/15 10:00 03/10/16 10:40 Prinivil - GT 40 mg DAILY [facility] Administration Metoprolol Tartrate 150 mg 12/29/15 22:00 03/10/16 22:26 Lopressor - GT 150 mg BID [facility] Administration Metoprolol Tartrate 5 mg 12/29/15 10:43 Lopressor Injection - IVPB Q6H PRN HYPERTENSION Multivitamins 5 ml 12/30/15 10:00 03/10/16 10:41 Thera-Plus - GT 5 ml DAILY [facility] Administration Pantoprazole Sodium 40 mg 12/30/15 10:00 03/10/16 10:40 Protonix Packets For Oral Suspension - GT 40 mg DAILY [facility] Administration Medication Instructions Recorded Amino Acids/Protein Hydrolys 30 ml GT DAILY packet 08/09/15 [Prostat Sugar-Free Packet -] Amlodipine Besylate [Norvasc -] 10 mg GT DAILY tablet 08/09/15 Chlorhexidine Gluconate [Peridex -] 15 ml MM BID cup 08/09/15 Insulin (Levemir) [Levemir Flexpen 25 units SQ HS pen 08/09/15 -] Insulin (Novolog) [Novolog Flexpen 3 units SQ Q6HPO pen 08/09/15 -] Insulin Sliding Scale [Novolog 0 units SQ Q6HPO pen 08/09/15 Vial Sliding Scale -] Lisinopril [Prinivil] 20 mg GT DAILY tablet 08/09/15 Metoprolol Tartrate Injection 5 mg IVPB Q6H PRN #0 vial 08/09/15 [Lopressor Injection -] Metoprolol Tartrate [Lopressor -] 100 mg GT BID tablet 10/12/15 Ondansetron Injection [Zofran 4 mg IVPB Q6H PRN #0 vial 08/09/15 Injection] Pantoprazole Suspension [Protonix 40 mg GT DAILY packet 08/09/15 Packets For Oral Suspension -] Vancomycin Oral Solution 125 mg GT Q6HPO ml 08/09/15 Assessment/Plan: 75 yo M with PMH HTN, DM, inguinal hernia a/w BRBPR and melena with multiple syncopal episodes. Dx with persistent diverticular bleed with R hemicolectomy, course complicated with CVA now in the ICU unresponsive and anoxic brain injury had tracheostomy on 07/23. also s/p PEG placement and iliac artery bleed s /p embolization 09/03/15. received a course of ABx for HCAp in Oct/nov Elevate the head of the bed above 60 since patient is coughing on G-tube feeding when the head of bed down, needs above 60 the head not to aspirate. 1- s/p Leukocytosis and fever: resolved will continue to monitor 2- b/l DVTS s/p IVC filter; anticoagulation is contraindicated due to severe GI bleed 3- GI bleed: resolved 4- anoxic brain injury 5- s/p Trach 07/23. s/p G-tube placement by IR today 6- DM controlled cont insulin 7- HTN cont antihypertensive meds 8 - dislodged G-tube s/p replacement of Gtube By IR 03/08/2016 9- hypernatremia due to dehydration - TEds - wound care ELevate HOB above 60 to avoid aspiration Glucerna 1.5 feeding 40cc/hr ---> goal 60cc/hr h20 is getting 50cc/hr
[2016-03-11] MEDS: INSULIN SLIDING SCALE (NOVOLOG) 1 VIAL SQ SCH ×2 (06:24→17:49)
[2016-03-11] MEDS: AMINO ACIDS/PROTEIN HYDROLYS SUGAR-FREE 30 ML PACKET PO SCH (09:51)
[2016-03-11] MEDS: LACTOBACILLUS ACIDOPHILUS 1 EACH TAB (FP) PO SCH (09:52)
[2016-03-11] MEDS: MULTIVITAMINS THERAPEUTIC GT SCH (09:52)
[2016-03-11] MEDS: LISINOPRIL 20 MG TABLET (FP) GT SCH (09:52)
[2016-03-11] MEDS: METOPROLOL TARTRATE 50 MG TABLET (FP) GT SCH ×2 (09:53→22:14)
[2016-03-11] MEDS: amLODIPine BESYLATE 10 MG TABLET (FP) GT SCH (09:53)
[2016-03-11] MEDS: PANTOPRAZOLE SOD 40 MG SUSPENSION PACKET GT SCH (09:53)
[2016-03-11] MEDS: INSULIN DETEMIR 100 UNITS/ML MDV SQ SCH (22:14)
[2016-03-12] MEDS: INSULIN SLIDING SCALE (NOVOLOG) 1 VIAL SQ SCH ×2 (06:11→18:38)
[2016-03-12] MEDS: amLODIPine BESYLATE 10 MG TABLET (FP) GT SCH (09:48)
[2016-03-12] MEDS: LISINOPRIL 20 MG TABLET (FP) GT SCH (09:48)
[2016-03-12] MEDS: PANTOPRAZOLE SOD 40 MG SUSPENSION PACKET GT SCH (09:48)
[2016-03-12] MEDS: LACTOBACILLUS ACIDOPHILUS 1 EACH TAB (FP) PO SCH (09:48)
[2016-03-12] MEDS: METOPROLOL TARTRATE 50 MG TABLET (FP) GT SCH ×2 (09:49→23:05)
[2016-03-12] MEDS: AMINO ACIDS/PROTEIN HYDROLYS SUGAR-FREE 30 ML PACKET PO SCH (09:49)
[2016-03-12] MEDS: MULTIVITAMINS THERAPEUTIC GT SCH (09:52)
--- NOTE | 2016-03-12 18:02 | PN ---
Progress Note (short form) - Note Progress Note: Patient is comfortable with no acute distress, lying in bed comfortably. 03/11/16 03/11/16 03/11/16 11:22 14:19 18:53 Temperature 97.4 F L 97.9 F Pulse Rate 80 87 78 Respiratory 22 22 Rate Blood Pressure 148/96 146/82 O2 Sat by Pulse 98 Oximetry (%) 03/11/16 03/11/16 03/11/16 19:29 21:00 22:10 Temperature Pulse Rate 98 H 88 Respiratory 22 Rate Blood Pressure 146/81 O2 Sat by Pulse 97 98 Oximetry (%) SKIN: Warm, dry, normal turgor, no rashes or lesions noted GENERAL: The patient has periods of somnolence, periods of wakefulness. EYES: Pupils equal, round and reactive to light, sclera anicteric, conjunctiva clear. ENT: Ears normal, Moist mucous membranes. positive for Trach collar, thin, white /sharma secretions. NECK: Normal range of motion, supple without lymphadenopathy, no JVD, or masses. LUNGS: Coarse breath sounds. No wheezes, and no crackles. HEART: Regular rate and rhythm, normal S1 and S2 without murmur, rub or gallop. ABDOMEN: Soft, nontender, normoactive bowel sounds. positive for G-tube EXTREMITIES: 2+ pulses, warm, well-perfused, no edema. NEUROLOGICAL: Unable to assess. SKIN: Wounds not visualized today. CBCD WBC 9.9 K/mm3 (4.0-10.0) 03/06/16 06:30 RBC 3.71 M/mm3 (4.00-5.60) L 03/06/16 06:30 Hgb 10.3 GM/dL (11.7-16.9) L 03/06/16 06:30 Hct 31.6 % (35.4-49) L 03/06/16 06:30 MCV 85.0 fl (80-96) 03/06/16 06:30 MCHC 32.6 g/dl (32.0-35.9) 03/06/16 06:30 RDW 15.2 % (11.9-15.9) 03/06/16 06:30 Plt Count 269 K/MM3 (134-434) D 03/06/16 06:30 MPV 9.0 fl (7.5-11.1) 03/06/16 06:30 CMP Sodium 147 mmol/L (136-145) H 03/07/16 06:20 Potassium 3.5 mmol/L (3.5-5.1) 03/06/16 06:30 Chloride 110 mmol/L (98-107) H 03/06/16 06:30 Carbon Dioxide 31 mmol/L (21-32) 03/06/16 06:30 Anion Gap 7 (8-16) L 03/06/16 06:30 BUN 15 mg/dL (7-18) D 03/06/16 06:30 Creatinine 0.9 mg/dL (0.7-1.3) 03/06/16 06:30 Creat Clearance w eGFR > 60 (>60) 03/02/16 07:45 Random Glucose 127 mg/dL (74-106) H 03/06/16 06:30 Calcium 10.0 mg/dL (8.5-10.1) 03/06/16 06:30 Total Bilirubin 0.2 mg/dL (0.2-1.0) 03/02/16 07:45 AST 15 U/L (15-37) 03/02/16 07:45 ALT 40 U/L (12-78) D 03/02/16 07:45 Alkaline Phosphatase 106 U/L (45-117) 03/02/16 07:45 Total Protein 7.8 g/dl (6.4-8.2) 03/02/16 07:45 Albumin 2.9 g/dl (3.4-5.0) L 03/02/16 07:45 CARDIAC ENZYMES Creatine Kinase 62 IU/L (38-174) 06/28/15 09:35 Troponin I 0.07 ng/ml (0.03-0.5) D 07/09/15 05:00 Current Medications Generic Name Dose Route Start Last Admin Trade Name Freq PRN Reason Stop Dose Admin Acetaminophen 650 mg 12/29/15 10:43 03/02/16 05:07 Tylenol Oral Solution - GT 650 mg Q6H PRN Administration FEVER Amino Acids 30 ml 03/01/16 10:00 03/11/16 09:49 Prostat Sugar-Free Packet - PO 30 ml DAILY [facility] Administration Amlodipine Besylate 10 mg 12/30/15 10:00 03/12/16 09:48 Norvasc - GT 10 mg DAILY [facility] Administration Guaifenesin 10 ml 12/29/15 10:43 02/13/16 11:20 Robitussin Dm - PO 10 ml Q6H PRN Administration COUGH Ibuprofen 200 mg 12/29/15 10:43 02/26/16 10:46 Motrin Oral Suspension - PO 200 mg Q6H PRN Administration FEVER Insulin Aspart 1 vial 01/28/16 16:30 03/11/16 06:11 Novolog Vial Sliding Scale - SQ Not Given BIDI [facility] Protocol Insulin Detemir 28 units 12/29/15 22:00 03/11/16 22:14 Levemir Vial SQ 28 units HS [facility] Administration Lactobacillus Acidophilus 1 tab 12/30/15 10:00 03/11/16 09:48 Bacid - PO 1 tab DAILY [facility] Administration Lisinopril 40 mg 12/30/15 10:00 03/11/16 09:48 Prinivil - GT 40 mg DAILY [facility] Administration Metoprolol Tartrate 150 mg 12/29/15 22:00 03/11/16 09:49 Lopressor - GT 150 mg BID [facility] Administration Metoprolol Tartrate 5 mg 12/29/15 10:43 Lopressor Injection - IVPB Q6H PRN HYPERTENSION Multivitamins 5 ml 12/30/15 10:00 03/11/16 09:52 Thera-Plus - GT 5 ml DAILY [facility] Administration Pantoprazole Sodium 40 mg 12/30/15 10:00 03/11/16 09:48 Protonix Packets For Oral Suspension - GT 40 mg DAILY [facility] Administration Assessment/Plan: 75 yo M with PMH HTN, DM, inguinal hernia a/w BRBPR and melena with multiple syncopal episodes. Dx with persistent diverticular bleed with R hemicolectomy, course complicated with CVA now in the ICU unresponsive and anoxic brain injury had tracheostomy on 07/23. also s/p PEG placement and iliac artery bleed s /p embolization 09/03/15. received a course of ABx for HCAp in Oct/b Elevate the head of the bed above 60 since patient is coughing on G-tube feeding when the head of bed down, needs above 60 the head not to aspirate. Continue to monitor the patient. 1- s/p Leukocytosis and fever: resolved will continue to monitor 2- b/l DVTS s/p IVC filter; anticoagulation is contraindicated due to severe GI bleed 3- GI bleed: resolved 4- anoxic brain injury 5- s/p Trach 07/23. s/p G-tube placement by IR today 6- DM controlled cont insulin 7- HTN cont antihypertensive meds 8 - dislodged G-tube s/p replacement of Gtube By IR 03/08/2016 9- hypernatremia due to dehydration - TEds - wound care ELevate HOB above 60 to avoid aspiration Glucerna 1.5 feeding 40cc/hr ---> goal 60cc/hr h20 is getting 50cc/hr
--- NOTE | 2016-03-12 18:03 | PN ---
Progress Note (short form) - Note Progress Note: Vital SignsNo new changes, lying in bed comfortable Temperature 98.5 F 03/12/16 14:44 Pulse Rate 77 03/12/16 14:44 Respiratory Rate 20 03/12/16 14:44 Blood Pressure 129/84 03/12/16 14:44 O2 Sat by Pulse Oximetry (%) 96 03/12/16 11:40 SKIN: Warm, dry, normal turgor, no rashes or lesions noted GENERAL: The patient has periods of somnolence, periods of wakefulness. EYES: Pupils equal, round and reactive to light, sclera anicteric, conjunctiva clear. ENT: Ears normal, Moist mucous membranes. positive for Trach collar, thin, white /sharma secretions. NECK: Normal range of motion, supple without lymphadenopathy, no JVD, or masses. LUNGS: Coarse breath sounds. No wheezes, and no crackles. HEART: Regular rate and rhythm, normal S1 and S2 without murmur, rub or gallop. ABDOMEN: Soft, nontender, normoactive bowel sounds. positive for G-tube EXTREMITIES: 2+ pulses, warm, well-perfused, no edema. NEUROLOGICAL: Unable to assess. SKIN: Wounds not visualized today. CBCD WBC 9.9 K/mm3 (4.0-10.0) 03/06/16 06:30 RBC 3.71 M/mm3 (4.00-5.60) L 03/06/16 06:30 Hgb 10.3 GM/dL (11.7-16.9) L 03/06/16 06:30 Hct 31.6 % (35.4-49) L 03/06/16 06:30 MCV 85.0 fl (80-96) 03/06/16 06:30 MCHC 32.6 g/dl (32.0-35.9) 03/06/16 06:30 RDW 15.2 % (11.9-15.9) 03/06/16 06:30 Plt Count 269 K/MM3 (134-434) D 03/06/16 06:30 MPV 9.0 fl (7.5-11.1) 03/06/16 06:30 CMP Sodium 147 mmol/L (136-145) H 03/07/16 06:20 Potassium 3.5 mmol/L (3.5-5.1) 03/06/16 06:30 Chloride 110 mmol/L (98-107) H 03/06/16 06:30 Carbon Dioxide 31 mmol/L (21-32) 03/06/16 06:30 Anion Gap 7 (8-16) L 03/06/16 06:30 BUN 15 mg/dL (7-18) D 03/06/16 06:30 Creatinine 0.9 mg/dL (0.7-1.3) 03/06/16 06:30 Creat Clearance w eGFR > 60 (>60) 03/02/16 07:45 Random Glucose 127 mg/dL (74-106) H 03/06/16 06:30 Calcium 10.0 mg/dL (8.5-10.1) 03/06/16 06:30 Total Bilirubin 0.2 mg/dL (0.2-1.0) 03/02/16 07:45 AST 15 U/L (15-37) 03/02/16 07:45 ALT 40 U/L (12-78) D 03/02/16 07:45 Alkaline Phosphatase 106 U/L (45-117) 03/02/16 07:45 Total Protein 7.8 g/dl (6.4-8.2) 03/02/16 07:45 Albumin 2.9 g/dl (3.4-5.0) L 03/02/16 07:45 CARDIAC ENZYMES Creatine Kinase 62 IU/L (38-174) 06/28/15 09:35 Troponin I 0.07 ng/ml (0.03-0.5) D 07/09/15 05:00 Current Medications Generic Name Dose Route Start Last Admin Trade Name Freq PRN Reason Stop Dose Admin Acetaminophen 650 mg 12/29/15 10:43 03/02/16 05:07 Tylenol Oral Solution - GT 650 mg Q6H PRN Administration FEVER Amino Acids 30 ml 03/01/16 10:00 03/12/16 09:49 Prostat Sugar-Free Packet - PO 30 ml DAILY KWAKU Administration Amlodipine Besylate 10 mg 12/30/15 10:00 03/12/16 09:48 Norvasc - GT 10 mg DAILY KWAKU Administration Guaifenesin 10 ml 12/29/15 10:43 02/13/16 11:20 Robitussin Dm - PO 10 ml Q6H PRN Administration COUGH Ibuprofen 200 mg 12/29/15 10:43 02/26/16 10:46 Motrin Oral Suspension - PO 200 mg Q6H PRN Administration FEVER Insulin Aspart 1 vial 01/28/16 16:30 03/12/16 06:11 Novolog Vial Sliding Scale - SQ Not Given BIDI [facility] Protocol Insulin Detemir 28 units 12/29/15 22:00 03/11/16 22:14 Levemir Vial SQ 28 units HS KWAKU Administration Lactobacillus Acidophilus 1 tab 12/30/15 10:00 03/12/16 09:48 Bacid - PO 1 tab DAILY KWAKU Administration Lisinopril 40 mg 12/30/15 10:00 03/12/16 09:48 Prinivil - GT 40 mg DAILY KWAKU Administration Metoprolol Tartrate 150 mg 12/29/15 22:00 03/12/16 09:49 Lopressor - GT 150 mg BID KWAKU Administration Metoprolol Tartrate 5 mg 12/29/15 10:43 Lopressor Injection - IVPB Q6H PRN HYPERTENSION Multivitamins 5 ml 12/30/15 10:00 03/12/16 09:52 Thera-Plus - GT 5 ml DAILY KWAKU Administration Pantoprazole Sodium 40 mg 12/30/15 10:00 03/12/16 09:48 Protonix Packets For Oral Suspension - GT 40 mg DAILY KWAKU Administration Assessment/Plan: 75 yo M with PMH HTN, DM, inguinal hernia a/w BRBPR and melena with multiple syncopal episodes. Dx with persistent diverticular bleed with R hemicolectomy, course complicated with CVA now in the ICU unresponsive and anoxic brain injury had tracheostomy on 07/23. also s/p PEG placement and iliac artery bleed s /p embolization 09/03/15. received a course of ABx for HCAp in Oct/b Elevate the head of the bed above 60 since patient is coughing on G-tube feeding when the head of bed down, needs above 60 the head not to aspirate. 1- s/p Leukocytosis and fever: resolved will continue to monitor 2- b/l DVTS s/p IVC filter; anticoagulation is contraindicated due to severe GI bleed 3- GI bleed: resolved 4- anoxic brain injury 5- s/p Trach 07/23. s/p G-tube placement by IR today 6- DM controlled cont insulin 7- HTN cont antihypertensive meds 8 - dislodged G-tube s/p replacement of Gtube By IR 03/08/2016 9- hypernatremia due to dehydration - TEds - wound care ELevate HOB above 60 to avoid aspiration Glucerna 1.5 feeding 40cc/hr ---> goal 60cc/hr h20 is getting 50cc/hr
[2016-03-12] MEDS: INSULIN DETEMIR 100 UNITS/ML MDV SQ SCH (23:05)
[2016-03-13] MEDS: INSULIN SLIDING SCALE (NOVOLOG) 1 VIAL SQ SCH ×2 (06:04→18:13)
[2016-03-13] MEDS: amLODIPine BESYLATE 10 MG TABLET (FP) GT SCH (10:12)
[2016-03-13] MEDS: METOPROLOL TARTRATE 50 MG TABLET (FP) GT SCH ×2 (10:13→23:29)
[2016-03-13] MEDS: LISINOPRIL 20 MG TABLET (FP) GT SCH (10:13)
[2016-03-13] MEDS: PANTOPRAZOLE SOD 40 MG SUSPENSION PACKET GT SCH (10:13)
[2016-03-13] MEDS: AMINO ACIDS/PROTEIN HYDROLYS SUGAR-FREE 30 ML PACKET PO SCH (10:13)
[2016-03-13] MEDS: MULTIVITAMINS THERAPEUTIC GT SCH (10:13)
[2016-03-13] MEDS: LACTOBACILLUS ACIDOPHILUS 1 EACH TAB (FP) PO SCH (10:13)
--- NOTE | 2016-03-13 16:00 | PN ---
Progress Note (short form) - Note Progress Note: Lying in ed comfortably with no new symptoms. Vital Signs Temperature 98.2 F 03/13/16 14:19 Pulse Rate 92 H 03/13/16 14:19 Respiratory Rate 20 03/13/16 14:19 Blood Pressure 132/100 03/13/16 09:43 O2 Sat by Pulse Oximetry (%) 98 03/13/16 10:07 SKIN: Warm, dry, normal turgor, no rashes or lesions noted GENERAL: The patient has periods of somnolence, periods of wakefulness. EYES: Pupils equal, round and reactive to light, sclera anicteric, conjunctiva clear. ENT: Ears normal, Moist mucous membranes. positive for Trach collar, thin, white /sharma secretions. NECK: Normal range of motion, supple without lymphadenopathy, no JVD, or masses. LUNGS: Coarse breath sounds. No wheezes, and no crackles. HEART: Regular rate and rhythm, normal S1 and S2 without murmur, rub or gallop. ABDOMEN: Soft, nontender, normoactive bowel sounds. positive for G-tube EXTREMITIES: 2+ pulses, warm, well-perfused, no edema. NEUROLOGICAL: Unable to assess. SKIN: Wounds not visualized today. CBCD WBC 9.9 K/mm3 (4.0-10.0) 03/06/16 06:30 RBC 3.71 M/mm3 (4.00-5.60) L 03/06/16 06:30 Hgb 10.3 GM/dL (11.7-16.9) L 03/06/16 06:30 Hct 31.6 % (35.4-49) L 03/06/16 06:30 MCV 85.0 fl (80-96) 03/06/16 06:30 MCHC 32.6 g/dl (32.0-35.9) 03/06/16 06:30 RDW 15.2 % (11.9-15.9) 03/06/16 06:30 Plt Count 269 K/MM3 (134-434) D 03/06/16 06:30 MPV 9.0 fl (7.5-11.1) 03/06/16 06:30 CMP Sodium 147 mmol/L (136-145) H 03/07/16 06:20 Potassium 3.5 mmol/L (3.5-5.1) 03/06/16 06:30 Chloride 110 mmol/L (98-107) H 03/06/16 06:30 Carbon Dioxide 31 mmol/L (21-32) 03/06/16 06:30 Anion Gap 7 (8-16) L 03/06/16 06:30 BUN 15 mg/dL (7-18) D 03/06/16 06:30 Creatinine 0.9 mg/dL (0.7-1.3) 03/06/16 06:30 Creat Clearance w eGFR > 60 (>60) 03/02/16 07:45 Random Glucose 127 mg/dL (74-106) H 03/06/16 06:30 Calcium 10.0 mg/dL (8.5-10.1) 03/06/16 06:30 Total Bilirubin 0.2 mg/dL (0.2-1.0) 03/02/16 07:45 AST 15 U/L (15-37) 03/02/16 07:45 ALT 40 U/L (12-78) D 03/02/16 07:45 Alkaline Phosphatase 106 U/L (45-117) 03/02/16 07:45 Total Protein 7.8 g/dl (6.4-8.2) 03/02/16 07:45 Albumin 2.9 g/dl (3.4-5.0) L 03/02/16 07:45 CARDIAC ENZYMES Creatine Kinase 62 IU/L (38-174) 06/28/15 09:35 Troponin I 0.07 ng/ml (0.03-0.5) D 07/09/15 05:00 Current Medications Generic Name Dose Route Start Last Admin Trade Name Freq PRN Reason Stop Dose Admin Acetaminophen 650 mg 12/29/15 10:43 03/02/16 05:07 Tylenol Oral Solution - GT 650 mg Q6H PRN Administration FEVER Amino Acids 30 ml 03/01/16 10:00 03/13/16 10:13 Prostat Sugar-Free Packet - PO 30 ml DAILY KWAKU Administration Amlodipine Besylate 10 mg 12/30/15 10:00 03/13/16 10:12 Norvasc - GT 10 mg DAILY KWAKU Administration Guaifenesin 10 ml 12/29/15 10:43 02/13/16 11:20 Robitussin Dm - PO 10 ml Q6H PRN Administration COUGH Ibuprofen 200 mg 12/29/15 10:43 02/26/16 10:46 Motrin Oral Suspension - PO 200 mg Q6H PRN Administration FEVER Insulin Aspart 1 vial 01/28/16 16:30 03/13/16 06:04 Novolog Vial Sliding Scale - SQ Not Given BIDI [facility] Protocol Insulin Detemir 28 units 12/29/15 22:00 03/12/16 23:05 Levemir Vial SQ 28 units HS KWAKU Administration Lactobacillus Acidophilus 1 tab 12/30/15 10:00 03/13/16 10:13 Bacid - PO 1 tab DAILY KWAKU Administration Lisinopril 40 mg 12/30/15 10:00 03/13/16 10:13 Prinivil - GT 40 mg DAILY KWAKU Administration Metoprolol Tartrate 150 mg 12/29/15 22:00 03/13/16 10:13 Lopressor - GT 150 mg BID KWAKU Administration Metoprolol Tartrate 5 mg 12/29/15 10:43 Lopressor Injection - IVPB Q6H PRN HYPERTENSION Multivitamins 5 ml 12/30/15 10:00 03/13/16 10:13 Thera-Plus - GT 5 ml DAILY KWAKU Administration Pantoprazole Sodium 40 mg 12/30/15 10:00 03/13/16 10:13 Protonix Packets For Oral Suspension - GT 40 mg DAILY KWAKU Administration Medication Instructions Recorded Amino Acids/Protein Hydrolys 30 ml GT DAILY packet 08/09/15 [Prostat Sugar-Free Packet -] Amlodipine Besylate [Norvasc -] 10 mg GT DAILY tablet 08/09/15 Chlorhexidine Gluconate [Peridex -] 15 ml MM BID cup 08/09/15 Insulin (Levemir) [Levemir Flexpen 25 units SQ HS pen 08/09/15 -] Insulin (Novolog) [Novolog Flexpen 3 units SQ Q6HPO pen 08/09/15 -] Insulin Sliding Scale [Novolog 0 units SQ Q6HPO pen 08/09/15 Vial Sliding Scale -] Lisinopril [Prinivil] 20 mg GT DAILY tablet 08/09/15 Metoprolol Tartrate Injection 5 mg IVPB Q6H PRN #0 vial 08/09/15 [Lopressor Injection -] Metoprolol Tartrate [Lopressor -] 100 mg GT BID tablet 08/09/15 Ondansetron Injection [Zofran 4 mg IVPB Q6H PRN #0 vial 08/09/15 Injection] Pantoprazole Suspension [Protonix 40 mg GT DAILY packet 08/09/15 Packets For Oral Suspension -] Vancomycin Oral Solution 125 mg GT Q6HPO ml 08/09/15 Assessment/Plan: 75 yo M with PMH HTN, DM, inguinal hernia a/w BRBPR and melena with multiple syncopal episodes. Dx with persistent diverticular bleed with R hemicolectomy, course complicated with CVA now in the ICU unresponsive and anoxic brain injury had tracheostomy on 07/23. also s/p PEG placement and iliac artery bleed s /p embolization 09/03/15. received a course of ABx for HCAp in Oct/nov Elevate the head of the bed above 60 since patient is coughing on G-tube feeding when the head of bed down, needs above 60 the head not to aspirate. Continue to monitor the patient. 1- s/p Leukocytosis and fever: resolved will continue to monitor 2- b/l DVTS s/p IVC filter; anticoagulation is contraindicated due to severe GI bleed 3- GI bleed: resolved 4- anoxic brain injury 5- s/p Trach 07/23. s/p G-tube placement by IR today 6- DM controlled cont insulin 7- HTN cont antihypertensive meds 8 - dislodged G-tube s/p replacement of Gtube By IR 03/08/2016 9- hypernatremia due to dehydration - TEds - wound care ELevate HOB above 60 to avoid aspiration Glucerna 1.5 feeding 40cc/hr ---> goal 60cc/hr h20 is getting 50cc/hr Glucerna 1.5 feeding 40cc/hr ---> goal 60cc/hr h20 is getting 50cc/hr
[2016-03-13] MEDS: INSULIN DETEMIR 100 UNITS/ML MDV SQ SCH (23:29)
[2016-03-13] MEDS: guaiFENesin/D-METHORPHAN HB 10 ML UNIT-DOSE CUPS PO PRN (23:29)
[2016-03-14] MEDS: INSULIN SLIDING SCALE (NOVOLOG) 1 VIAL SQ SCH ×2 (06:25→17:49)
[2016-03-14] MEDS: METOPROLOL TARTRATE 50 MG TABLET (FP) GT SCH ×2 (10:56→22:52)
[2016-03-14] MEDS: LACTOBACILLUS ACIDOPHILUS 1 EACH TAB (FP) PO SCH (10:56)
[2016-03-14] MEDS: amLODIPine BESYLATE 10 MG TABLET (FP) GT SCH (10:56)
[2016-03-14] MEDS: LISINOPRIL 20 MG TABLET (FP) GT SCH (10:56)
[2016-03-14] MEDS: PANTOPRAZOLE SOD 40 MG SUSPENSION PACKET GT SCH (10:58)
[2016-03-14] MEDS: AMINO ACIDS/PROTEIN HYDROLYS SUGAR-FREE 30 ML PACKET PO SCH (10:59)
[2016-03-14] MEDS: MULTIVITAMINS THERAPEUTIC GT SCH (10:59)
--- NOTE | 2016-03-14 19:25 | PN ---
Progress Note (short form) - Note Progress Note: no new symptoms. Vital Signs Temperature 98.7 F 03/14/16 14:00 Pulse Rate 69 03/14/16 14:00 Respiratory Rate 18 03/14/16 14:00 Blood Pressure 146/83 03/14/16 14:00 O2 Sat by Pulse Oximetry (%) 96 03/14/16 10:20 SKIN: Warm, dry, normal turgor, no rashes or lesions noted GENERAL: The patient has periods of somnolence, periods of wakefulness. EYES: Pupils equal, round and reactive to light, sclera anicteric, conjunctiva clear. ENT: Ears normal, Moist mucous membranes. positive for Trach collar, thin, white /sharma secretions. NECK: Normal range of motion, supple without lymphadenopathy, no JVD, or masses. LUNGS: Coarse breath sounds. No wheezes, and no crackles. HEART: Regular rate and rhythm, normal S1 and S2 without murmur, rub or gallop. ABDOMEN: Soft, nontender, normoactive bowel sounds. positive for G-tube EXTREMITIES: 2+ pulses, warm, well-perfused, no edema. NEUROLOGICAL: Unable to assess. SKIN: Wounds not visualized today. CBCD WBC 9.9 K/mm3 (4.0-10.0) 03/06/16 06:30 RBC 3.71 M/mm3 (4.00-5.60) L 03/06/16 06:30 Hgb 10.3 GM/dL (11.7-16.9) L 03/06/16 06:30 Hct 31.6 % (35.4-49) L 03/06/16 06:30 MCV 85.0 fl (80-96) 03/06/16 06:30 MCHC 32.6 g/dl (32.0-35.9) 03/06/16 06:30 RDW 15.2 % (11.9-15.9) 03/06/16 06:30 Plt Count 269 K/MM3 (134-434) D 03/06/16 06:30 MPV 9.0 fl (7.5-11.1) 03/06/16 06:30 CMP Sodium 147 mmol/L (136-145) H 03/07/16 06:20 Potassium 3.5 mmol/L (3.5-5.1) 03/06/16 06:30 Chloride 110 mmol/L (98-107) H 03/06/16 06:30 Carbon Dioxide 31 mmol/L (21-32) 03/06/16 06:30 Anion Gap 7 (8-16) L 03/06/16 06:30 BUN 15 mg/dL (7-18) D 03/06/16 06:30 Creatinine 0.9 mg/dL (0.7-1.3) 03/06/16 06:30 Creat Clearance w eGFR > 60 (>60) 03/02/16 07:45 Random Glucose 127 mg/dL (74-106) H 03/06/16 06:30 Calcium 10.0 mg/dL (8.5-10.1) 03/06/16 06:30 Total Bilirubin 0.2 mg/dL (0.2-1.0) 03/02/16 07:45 AST 15 U/L (15-37) 03/02/16 07:45 ALT 40 U/L (12-78) D 03/02/16 07:45 Alkaline Phosphatase 106 U/L (45-117) 03/02/16 07:45 Total Protein 7.8 g/dl (6.4-8.2) 03/02/16 07:45 Albumin 2.9 g/dl (3.4-5.0) L 03/02/16 07:45 CARDIAC ENZYMES Creatine Kinase 62 IU/L (38-174) 06/28/15 09:35 Troponin I 0.07 ng/ml (0.03-0.5) D 07/09/15 05:00 Current Medications Generic Name Dose Route Start Last Admin Trade Name Freq PRN Reason Stop Dose Admin Acetaminophen 650 mg 12/29/15 10:43 03/02/16 05:07 Tylenol Oral Solution - GT 650 mg Q6H PRN Administration FEVER Amino Acids 30 ml 03/01/16 10:00 03/14/16 10:59 Prostat Sugar-Free Packet - PO 30 ml DAILY KWAKU Administration Amlodipine Besylate 10 mg 12/30/15 10:00 03/14/16 10:56 Norvasc - GT 10 mg DAILY KWAKU Administration Guaifenesin 10 ml 12/29/15 10:43 03/13/16 23:29 Robitussin Dm - PO 10 ml Q6H PRN Administration COUGH Ibuprofen 200 mg 12/29/15 10:43 02/26/16 10:46 Motrin Oral Suspension - PO 200 mg Q6H PRN Administration FEVER Insulin Aspart 1 vial 01/28/16 16:30 03/14/16 17:49 Novolog Vial Sliding Scale - SQ 2 units BIDI KWAKU Administration Protocol Insulin Detemir 28 units 12/29/15 22:00 03/13/16 23:29 Levemir Vial SQ 28 units HS KWAKU Administration Lactobacillus Acidophilus 1 tab 12/30/15 10:00 03/14/16 10:56 Bacid - PO 1 tab DAILY KWAKU Administration Lisinopril 40 mg 12/30/15 10:00 03/14/16 10:56 Prinivil - GT 40 mg DAILY KWAKU Administration Metoprolol Tartrate 150 mg 12/29/15 22:00 03/14/16 10:56 Lopressor - GT 150 mg BID KWAKU Administration Metoprolol Tartrate 5 mg 12/29/15 10:43 Lopressor Injection - IVPB Q6H PRN HYPERTENSION Multivitamins 5 ml 12/30/15 10:00 03/14/16 10:59 Thera-Plus - GT 5 ml DAILY KWAKU Administration Pantoprazole Sodium 40 mg 12/30/15 10:00 03/14/16 10:58 Protonix Packets For Oral Suspension - GT 40 mg DAILY KWAKU Administration Assessment/Plan: 75 yo M with PMH HTN, DM, inguinal hernia a/w BRBPR and melena with multiple syncopal episodes. Dx with persistent diverticular bleed with R hemicolectomy, course complicated with CVA now in the ICU unresponsive and anoxic brain injury had tracheostomy on 07/23. also s/p PEG placement and iliac artery bleed s /p embolization 09/03/15. received a course of ABx for HCAp in Oct/nov Continue to Elevate the head of the bed above 60 since patient is coughing on G- tube feeding when the head of bed down, needs above 60 the head to avoid aspiration. Continue to monitor the patient. 1- s/p Leukocytosis and fever: resolved will continue to monitor 2- b/l DVTS s/p IVC filter; anticoagulation is contraindicated due to severe GI bleed 3- GI bleed: resolved 4- anoxic brain injury 5- s/p Trach 07/23. s/p G-tube placement by IR today 6- DM controlled cont insulin 7- HTN cont antihypertensive meds 8 - dislodged G-tube s/p replacement of Gtube By IR 03/08/2016 9- hypernatremia due to dehydration DVT Px: TEds - wound care ELevate HOB above 60 to avoid aspiration Glucerna 1.5 feeding 40cc/hr ---> goal 60cc/hr h20 is getting 50cc/hr
[2016-03-14] MEDS: INSULIN DETEMIR 100 UNITS/ML MDV SQ SCH (22:51)
[2016-03-14] MEDS: guaiFENesin/D-METHORPHAN HB 10 ML UNIT-DOSE CUPS PO PRN (22:52)
[2016-03-14] MEDS: IBUPROFEN 100 MG/5 ML UNIT DOSE CUPS PO PRN (22:52)
[2016-03-15] MEDS: INSULIN SLIDING SCALE (NOVOLOG) 1 VIAL SQ SCH ×2 (06:13→17:50)
[2016-03-15] MEDS: AMINO ACIDS/PROTEIN HYDROLYS SUGAR-FREE 30 ML PACKET PO SCH (09:14)
[2016-03-15] MEDS: PANTOPRAZOLE SOD 40 MG SUSPENSION PACKET GT SCH (09:15)
[2016-03-15] MEDS: LACTOBACILLUS ACIDOPHILUS 1 EACH TAB (FP) PO SCH (09:15)
[2016-03-15] MEDS: LISINOPRIL 20 MG TABLET (FP) GT SCH (09:16)
[2016-03-15] MEDS: METOPROLOL TARTRATE 50 MG TABLET (FP) GT SCH ×2 (09:16→22:39)
[2016-03-15] MEDS: amLODIPine BESYLATE 10 MG TABLET (FP) GT SCH (09:16)
[2016-03-15] MEDS: MULTIVITAMINS THERAPEUTIC GT SCH (09:23)
--- NOTE | 2016-03-15 20:07 | PN ---
Progress Note (short form) - Note Progress Note: Subjective: unable to obtain hx. no events over night Objective: Last Vital Signs Temp Pulse Resp BP Pulse Ox 98.4 F 83 16 142/87 98 03/15/16 14:00 03/15/16 18:08 03/15/16 18:08 03/15/16 18:08 03/15/16 17:46 Physical Exam: NAD. sleeping CV: RRR, no MRG lungs: CTAB. ext: no edema on legs. abd: soft, NT, ND , nl BS. PEG in place sacral decub stage 2 was not examined. Laboratory Results - last 24 hr 03/15/16 03/15/16 06:11 17:45 POC Glucometer 134 136 Assessment/Plan: 75 yo M with PMH HTN, DM, inguinal hernia a/w BRBPR and melena with multiple syncopal episodes. Dx with persistent diverticular bleed with R hemicolectomy, course complicated with CVA now in the ICU unresponsive and anoxic brain injury had tracheostomy on 07/23. also s/p PEG placement and iliac artery bleed s /p embolization 09/03/15. received a course of ABx for HCAp in Oct/nov 1- fever: resolved 2- b/l DVTS s/p IVC filter 3- GI bleed: resolved 4- anoxic brain injury 5- s/p Trach 07/23. s/p PEG 6- DM . 7- HTN 8- mild leukocytosis : resolved 9- hypernatremia due to dehydration Plan: - repeat Na level in am - alen nt TF - off abx - cont antihypertensive meds - cont insulin - OK to use CSDs now since it has been awhile since last DVT - wound care
[2016-03-15] MEDS: INSULIN DETEMIR 100 UNITS/ML MDV SQ SCH (22:39)
[2016-03-16] MEDS: INSULIN SLIDING SCALE (NOVOLOG) 1 VIAL SQ SCH ×2 (06:53→17:55)
[2016-03-16 09:31] LABS: CALCIUM 9.7 mg/dL (8.5-10.1)
[2016-03-16 09:32] LABS: CREATININE 0.8 mg/dL (0.7-1.3)
[2016-03-16] MEDS: LACTOBACILLUS ACIDOPHILUS 1 EACH TAB (FP) PO SCH (10:53)
[2016-03-16] MEDS: amLODIPine BESYLATE 10 MG TABLET (FP) GT SCH (10:54)
[2016-03-16] MEDS: LISINOPRIL 20 MG TABLET (FP) GT SCH (10:54)
[2016-03-16] MEDS: AMINO ACIDS/PROTEIN HYDROLYS SUGAR-FREE 30 ML PACKET PO SCH (10:54)
[2016-03-16] MEDS: METOPROLOL TARTRATE 50 MG TABLET (FP) GT SCH ×2 (10:54→22:37)
[2016-03-16] MEDS: PANTOPRAZOLE SOD 40 MG SUSPENSION PACKET GT SCH (10:54)
[2016-03-16] MEDS: MULTIVITAMINS THERAPEUTIC GT SCH (10:58)
--- NOTE | 2016-03-16 17:45 | PN ---
Progress Note (short form) - Note Progress Note: Subjective: unable to obtain hx. no events over night Objective: Last Vital Signs Temp Pulse Resp BP Pulse Ox 99.1 F 73 19 138/89 96 03/16/16 14:00 03/16/16 14:00 03/16/16 14:00 03/16/16 14:00 03/16/16 10:13 Physical Exam: NAD. CV: RRR, no MRG lungs: CTAB. ext: slight edema on feet SCDs on abd: soft, NT, ND , nl BS. PEG in place Laboratory Results - last 24 hr 03/15/16 03/16/16 03/16/16 17:45 06:43 08:00 Sodium 138 Potassium 3.9 Chloride 99 Carbon Dioxide 33 H Anion Gap 6 L BUN 21 H D Creatinine 0.8 POC Glucometer 136 132 Random Glucose 114 H Calcium 9.7 Assessment/Plan: 75 yo M with PMH HTN, DM, inguinal hernia a/w BRBPR and melena with multiple syncopal episodes. Dx with persistent diverticular bleed with R hemicolectomy, course complicated with CVA now in the ICU unresponsive and anoxic brain injury had tracheostomy on 07/23. also s/p PEG placement and iliac artery bleed s /p embolization 09/03/15. received a course of ABx for HCAp in Oct/nov 1- fever: resolved 2- b/l DVTS s/p IVC filter 3- GI bleed: resolved 4- anoxic brain injury 5- s/p Trach 07/23. s/p PEG 6- DM . 7- HTN 8- mild leukocytosis : resolved 9- hypernatremia due to dehydration: resolved Plan: - cont TF - off abx - cont antihypertensive meds - cont insulin -SCDs - wound care
[2016-03-16] MEDS: INSULIN DETEMIR 100 UNITS/ML MDV SQ SCH (22:37)
[2016-03-17] MEDS: INSULIN SLIDING SCALE (NOVOLOG) 1 VIAL SQ SCH ×2 (06:00→18:32)
[2016-03-17] MEDS: METOPROLOL TARTRATE 50 MG TABLET (FP) GT SCH ×2 (09:44→21:43)
[2016-03-17] MEDS: LISINOPRIL 20 MG TABLET (FP) GT SCH (09:44)
[2016-03-17] MEDS: LACTOBACILLUS ACIDOPHILUS 1 EACH TAB (FP) PO SCH (09:44)
[2016-03-17] MEDS: MULTIVITAMINS THERAPEUTIC GT SCH (09:45)
[2016-03-17] MEDS: amLODIPine BESYLATE 10 MG TABLET (FP) GT SCH (09:45)
[2016-03-17] MEDS: AMINO ACIDS/PROTEIN HYDROLYS SUGAR-FREE 30 ML PACKET PO SCH (09:45)
[2016-03-17] MEDS: PANTOPRAZOLE SOD 40 MG SUSPENSION PACKET GT SCH (09:45)
--- NOTE | 2016-03-17 18:12 | PN ---
Progress Note (short form) - Note Progress Note: Subjective: unable to obtain hx. no events over night Objective: Last Vital Signs Temp Pulse Resp BP Pulse Ox 98.1 F 66 22 146/87 97 03/17/16 15:36 03/17/16 15:36 03/17/16 15:36 03/17/16 15:36 03/17/16 10:50 Exam ext: slight edema on feet SCDs on abd: soft, NT, ND , nl BS. PEG in place CV: RRR Lungs : CTAB Laboratory Results - last 24 hr 03/17/16 03/17/16 05:39 17:37 POC Glucometer 131 168 Assessment/Plan: 75 yo M with PMH HTN, DM, inguinal hernia a/w BRBPR and melena with multiple syncopal episodes. Dx with persistent diverticular bleed with R hemicolectomy, course complicated with CVA now in the ICU unresponsive and anoxic brain injury had tracheostomy on 07/23. also s/p PEG placement and iliac artery bleed s /p embolization 09/03/15. received a course of ABx for HCAp in Oct/nov 1- fever: resolved 2- b/l DVTS s/p IVC filter 3- GI bleed: resolved 4- anoxic brain injury 5- s/p Trach 07/23. s/p PEG 6- DM . 7- HTN 8- mild leukocytosis : resolved 9- hypernatremia due to dehydration: resolved Plan: - cont TF - off abx - cont antihypertensive meds - cont insulin -SCDs - wound care
[2016-03-17] MEDS: INSULIN DETEMIR 100 UNITS/ML MDV SQ SCH (21:41)
[2016-03-17] MEDS: IBUPROFEN 100 MG/5 ML UNIT DOSE CUPS PO PRN (21:47)
[2016-03-17] MEDS: guaiFENesin/D-METHORPHAN HB 10 ML UNIT-DOSE CUPS PO PRN (21:49)
[2016-03-18] MEDS: INSULIN SLIDING SCALE (NOVOLOG) 1 VIAL SQ SCH ×2 (06:04→16:51)
[2016-03-18] MEDS: PANTOPRAZOLE SOD 40 MG SUSPENSION PACKET GT SCH (11:03)
[2016-03-18] MEDS: LACTOBACILLUS ACIDOPHILUS 1 EACH TAB (FP) PO SCH (11:03)
[2016-03-18] MEDS: LISINOPRIL 20 MG TABLET (FP) GT SCH (11:03)
[2016-03-18] MEDS: MULTIVITAMINS THERAPEUTIC GT SCH (11:03)
[2016-03-18] MEDS: AMINO ACIDS/PROTEIN HYDROLYS SUGAR-FREE 30 ML PACKET PO SCH (11:03)
[2016-03-18] MEDS: METOPROLOL TARTRATE 50 MG TABLET (FP) GT SCH ×2 (11:05→21:22)
[2016-03-18] MEDS: amLODIPine BESYLATE 10 MG TABLET (FP) GT SCH (11:05)
[2016-03-18] MEDS: INSULIN DETEMIR 100 UNITS/ML MDV SQ SCH (21:22)
[2016-03-19] MEDS: INSULIN SLIDING SCALE (NOVOLOG) 1 VIAL SQ SCH ×2 (06:07→16:56)
[2016-03-19] MEDS: LISINOPRIL 20 MG TABLET (FP) GT SCH (10:19)
[2016-03-19] MEDS: amLODIPine BESYLATE 10 MG TABLET (FP) GT SCH (10:19)
[2016-03-19] MEDS: PANTOPRAZOLE SOD 40 MG SUSPENSION PACKET GT SCH (10:19)
[2016-03-19] MEDS: MULTIVITAMINS THERAPEUTIC GT SCH (10:20)
[2016-03-19] MEDS: METOPROLOL TARTRATE 50 MG TABLET (FP) GT SCH ×2 (10:20→22:25)
[2016-03-19] MEDS: AMINO ACIDS/PROTEIN HYDROLYS SUGAR-FREE 30 ML PACKET PO SCH (10:20)
[2016-03-19] MEDS: LACTOBACILLUS ACIDOPHILUS 1 EACH TAB (FP) PO SCH (10:20)
--- NOTE | 2016-03-19 19:30 | PN ---
Progress Note (short form) - Note Progress Note: Subjective: unable to obtain hx. no events over night Objective: Last Vital Signs Temp Pulse Resp BP Pulse Ox 98.4 F 78 22 162/89 99 03/19/16 16:25 03/19/16 16:25 03/19/16 16:25 03/19/16 16:03/19/16 10:00 Exam ext: slight edema on feet SCDs on abd: soft, NT, ND , nl BS. PEG in place CV: RRR Lungs : CTAB Laboratory Results - last 24 hr 03/19/16 03/19/16 05:48 16:36 POC Glucometer 120 134 Assessment/Plan: 75 yo M with PMH HTN, DM, inguinal hernia a/w BRBPR and melena with multiple syncopal episodes. Dx with persistent diverticular bleed with R hemicolectomy, course complicated with CVA now in the ICU unresponsive and anoxic brain injury had tracheostomy on 07/23. also s/p PEG placement and iliac artery bleed s /p embolization 09/03/15. received a course of ABx for HCAp in Oct/nov 1- fever: resolved 2- b/l DVTS s/p IVC filter 3- GI bleed: resolved 4- anoxic brain injury 5- s/p Trach 07/23. s/p PEG 6- DM . 7- HTN 8- mild leukocytosis : resolved 9- hypernatremia due to dehydration: resolved Plan: - cont TF - cont antihypertensive meds - cont insulin -SCDs - wound care
[2016-03-19] MEDS: INSULIN DETEMIR 100 UNITS/ML MDV SQ SCH (22:25)
[2016-03-20] MEDS: INSULIN SLIDING SCALE (NOVOLOG) 1 VIAL SQ SCH ×2 (06:12→17:07)
[2016-03-20] MEDS: METOPROLOL TARTRATE 50 MG TABLET (FP) GT SCH ×2 (09:49→22:45)
[2016-03-20] MEDS: LACTOBACILLUS ACIDOPHILUS 1 EACH TAB (FP) PO SCH (09:50)
[2016-03-20] MEDS: amLODIPine BESYLATE 10 MG TABLET (FP) GT SCH (09:51)
[2016-03-20] MEDS: LISINOPRIL 20 MG TABLET (FP) GT SCH (09:51)
[2016-03-20] MEDS: AMINO ACIDS/PROTEIN HYDROLYS SUGAR-FREE 30 ML PACKET PO SCH (09:51)
[2016-03-20] MEDS: PANTOPRAZOLE SOD 40 MG SUSPENSION PACKET GT SCH (09:52)
[2016-03-20] MEDS: MULTIVITAMINS THERAPEUTIC GT SCH (09:56)
--- NOTE | 2016-03-20 17:55 | PN ---
Progress Note (short form) - Note Progress Note: Subjective: unable to obtain hx. no events over night Objective: Last Vital Signs Temp Pulse Resp BP Pulse Ox 97.8 F 82 22 139/84 98 03/20/16 14:07 03/20/16 14:07 03/20/16 14:07 03/20/16 14:07 03/20/16 09:15 ext: slight edema on feet SCDs on abd: soft, NT, ND , nl BS. PEG in place CV: RRR Lungs : CTAB Laboratory Results - last 24 hr 03/20/16 03/20/16 05:49 17:03 POC Glucometer 112 152 Assessment/Plan: 75 yo M with PMH HTN, DM, inguinal hernia a/w BRBPR and melena with multiple syncopal episodes. Dx with persistent diverticular bleed with R hemicolectomy, course complicated with CVA now in the ICU unresponsive and anoxic brain injury had tracheostomy on 07/23. also s/p PEG placement and iliac artery bleed s /p embolization 09/03/15. received a course of ABx for HCAp in Oct/nov 1- fever: resolved 2- b/l DVTS s/p IVC filter 3- GI bleed: resolved 4- anoxic brain injury 5- s/p Trach 07/23. s/p PEG 6- DM . 7- HTN 8- mild leukocytosis : resolved 9- hypernatremia due to dehydration: resolved Plan: - cont TF - cont antihypertensive meds - cont insulin -SCDs - wound care
[2016-03-20] MEDS: INSULIN DETEMIR 100 UNITS/ML MDV SQ SCH (22:44)
[2016-03-21] MEDS: METOPROLOL TARTRATE 50 MG TABLET (FP) GT SCH ×2 (06:00→22:42)
[2016-03-21] MEDS: INSULIN SLIDING SCALE (NOVOLOG) 1 VIAL SQ SCH ×2 (06:38→18:12)
[2016-03-21] MEDS: LISINOPRIL 20 MG TABLET (FP) GT SCH (11:00)
[2016-03-21] MEDS: amLODIPine BESYLATE 10 MG TABLET (FP) GT SCH (11:00)
[2016-03-21] MEDS: AMINO ACIDS/PROTEIN HYDROLYS SUGAR-FREE 30 ML PACKET PO SCH (11:00)
[2016-03-21] MEDS: MULTIVITAMINS THERAPEUTIC GT SCH (11:00)
[2016-03-21] MEDS: PANTOPRAZOLE SOD 40 MG SUSPENSION PACKET GT SCH (11:00)
[2016-03-21] MEDS: LACTOBACILLUS ACIDOPHILUS 1 EACH TAB (FP) PO SCH (11:00)
--- NOTE | 2016-03-21 12:49 | PN ---
Progress Note (short form) - Note Progress Note: Subjective: unable to obtain hx. no events over night Objective: Last Vital Signs Temp Pulse Resp BP Pulse Ox 99.5 F 84 20 154/84 95 03/21/16 10:31 03/21/16 10:31 03/21/16 10:31 03/21/16 10:31 03/21/16 10:15 ext: slight edema on feet SCDs on abd: soft, NT, ND , nl BS. PEG in place CV: RRR Lungs : CTAB Laboratory Results - last 24 hr 03/20/16 03/21/16 17:03 06:04 POC Glucometer 152 114 Assessment/Plan: 75 yo M with PMH HTN, DM, inguinal hernia a/w BRBPR and melena with multiple syncopal episodes. Dx with persistent diverticular bleed with R hemicolectomy, course complicated with CVA now in the ICU unresponsive and anoxic brain injury had tracheostomy on 07/23. also s/p PEG placement and iliac artery bleed s /p embolization 09/03/15. received a course of ABx for HCAp in Oct/nov 1- fever: resolved 2- b/l DVTS s/p IVC filter 3- GI bleed: resolved 4- anoxic brain injury 5- s/p Trach 07/23. s/p PEG 6- DM . 7- HTN 8- mild leukocytosis : resolved 9- hypernatremia due to dehydration: resolved Plan: - cont TF - cont antihypertensive meds - cont insulin - SCDs - wound care
[2016-03-21] MEDS: INSULIN DETEMIR 100 UNITS/ML MDV SQ SCH (22:42)
[2016-03-22] MEDS: INSULIN SLIDING SCALE (NOVOLOG) 1 VIAL SQ SCH ×2 (06:50→17:26)
[2016-03-22] MEDS: LACTOBACILLUS ACIDOPHILUS 1 EACH TAB (FP) PO SCH (09:40)
[2016-03-22] MEDS: AMINO ACIDS/PROTEIN HYDROLYS SUGAR-FREE 30 ML PACKET PO SCH (09:41)
[2016-03-22] MEDS: LISINOPRIL 20 MG TABLET (FP) GT SCH (09:41)
[2016-03-22] MEDS: PANTOPRAZOLE SOD 40 MG SUSPENSION PACKET GT SCH (09:41)
[2016-03-22] MEDS: METOPROLOL TARTRATE 50 MG TABLET (FP) GT SCH ×2 (09:41→21:53)
[2016-03-22] MEDS: amLODIPine BESYLATE 10 MG TABLET (FP) GT SCH (09:41)
[2016-03-22] MEDS: MULTIVITAMINS THERAPEUTIC GT SCH (09:42)
--- NOTE | 2016-03-22 14:22 | PN ---
Progress Note (short form) - Note Progress Note: Patient is comfortable with no new changes. Vital Signs Temperature 98.3 F 03/22/16 06:00 Pulse Rate 102 H 03/22/16 10:00 Respiratory Rate 20 03/22/16 06:00 Blood Pressure 148/98 03/22/16 06:00 O2 Sat by Pulse Oximetry (%) 100 03/22/16 10:00 SKIN: Warm, dry, normal turgor, no rashes or lesions noted GENERAL: The patient has periods of somnolence, periods of wakefulness. EYES: Pupils equal, round and reactive to light, sclera anicteric, conjunctiva clear. ENT: Ears normal, Moist mucous membranes. positive for Trach collar, thin, white /sharma secretions. NECK: Normal range of motion, supple without lymphadenopathy, no JVD, or masses. LUNGS: Coarse breath sounds. No wheezes, and no crackles. HEART: Regular rate and rhythm, normal S1 and S2 without murmur, rub or gallop. ABDOMEN: Soft, nontender, normoactive bowel sounds. positive for G-tube EXTREMITIES: 2+ pulses, warm, well-perfused, no edema. NEUROLOGICAL: Unable to assess. SKIN: Wounds not visualized today. CBCD WBC 9.9 K/mm3 (4.0-10.0) 03/06/16 06:30 RBC 3.71 M/mm3 (4.00-5.60) L 03/06/16 06:30 Hgb 10.3 GM/dL (11.7-16.9) L 03/06/16 06:30 Hct 31.6 % (35.4-49) L 03/06/16 06:30 MCV 85.0 fl (80-96) 03/06/16 06:30 MCHC 32.6 g/dl (32.0-35.9) 03/06/16 06:30 RDW 15.2 % (11.9-15.9) 03/06/16 06:30 Plt Count 269 K/MM3 (134-434) D 03/06/16 06:30 MPV 9.0 fl (7.5-11.1) 03/06/16 06:30 CMP Sodium 138 mmol/L (136-145) 03/16/16 08:00 Potassium 3.9 mmol/L (3.5-5.1) 03/16/16 08:00 Chloride 99 mmol/L (98-107) 03/16/16 08:00 Carbon Dioxide 33 mmol/L (21-32) H 03/16/16 08:00 Anion Gap 6 (8-16) L 03/16/16 08:00 BUN 21 mg/dL (7-18) H D 03/16/16 08:00 Creatinine 0.8 mg/dL (0.7-1.3) 03/16/16 08:00 Creat Clearance w eGFR > 60 (>60) 03/02/16 07:45 Random Glucose 114 mg/dL (74-106) H 03/16/16 08:00 Calcium 9.7 mg/dL (8.5-10.1) 03/16/16 08:00 Total Bilirubin 0.2 mg/dL (0.2-1.0) 03/02/16 07:45 AST 15 U/L (15-37) 03/02/16 07:45 ALT 40 U/L (12-78) D 03/02/16 07:45 Alkaline Phosphatase 106 U/L (45-117) 03/02/16 07:45 Total Protein 7.8 g/dl (6.4-8.2) 03/02/16 07:45 Albumin 2.9 g/dl (3.4-5.0) L 03/02/16 07:45 CARDIAC ENZYMES Creatine Kinase 62 IU/L (38-174) 06/28/15 09:35 Troponin I 0.07 ng/ml (0.03-0.5) D 07/09/15 05:00 Current Medications Generic Name Dose Route Start Last Admin Trade Name Freq PRN Reason Stop Dose Admin Acetaminophen 650 mg 12/29/15 10:43 03/02/16 05:07 Tylenol Oral Solution - GT 650 mg Q6H PRN Administration FEVER Amino Acids 30 ml 03/01/16 10:00 03/22/16 09:41 Prostat Sugar-Free Packet - PO 30 ml DAILY KWAKU Administration Amlodipine Besylate 10 mg 12/30/15 10:00 03/22/16 09:41 Norvasc - GT 10 mg DAILY KWAKU Administration Guaifenesin 10 ml 12/29/15 10:43 03/17/16 21:49 Robitussin Dm - PO 10 ml Q6H PRN Administration COUGH Ibuprofen 200 mg 12/29/15 10:43 03/17/16 21:47 Motrin Oral Suspension - PO 200 mg Q6H PRN Administration FEVER Insulin Aspart 1 vial 01/28/16 16:30 03/22/16 06:50 Novolog Vial Sliding Scale - SQ Not Given [facility] Protocol Insulin Detemir 28 units 12/29/15 22:00 03/21/16 22:42 Levemir Vial SQ 28 units HS KWAKU Administration Lactobacillus Acidophilus 1 tab 12/30/15 10:00 03/22/16 09:40 Bacid - PO 1 tab DAILY KWAKU Administration Lisinopril 40 mg 12/30/15 10:00 03/22/16 09:41 Prinivil - GT 40 mg DAILY KWAKU Administration Metoprolol Tartrate 150 mg 12/29/15 22:00 03/22/16 09:41 Lopressor - GT 150 mg BID KWAKU Administration Metoprolol Tartrate 5 mg 12/29/15 10:43 Lopressor Injection - IVPB Q6H PRN HYPERTENSION Multivitamins 5 ml 12/30/15 10:00 03/22/16 09:42 Thera-Plus - GT 5 ml DAILY KWAKU Administration Pantoprazole Sodium 40 mg 12/30/15 10:00 03/22/16 09:41 Protonix Packets For Oral Suspension - GT 40 mg DAILY KWAKU Administration Medication Instructions Recorded Amino Acids/Protein Hydrolys 30 ml GT DAILY packet 08/09/15 [Prostat Sugar-Free Packet -] Amlodipine Besylate [Norvasc -] 10 mg GT DAILY tablet 08/09/15 Chlorhexidine Gluconate [Peridex -] 15 ml MM BID cup 08/09/15 Insulin (Levemir) [Levemir Flexpen 25 units SQ HS pen 08/09/15 -] Insulin (Novolog) [Novolog Flexpen 3 units SQ Q6HPO pen 08/09/15 -] Insulin Sliding Scale [Novolog 0 units SQ Q6HPO pen 08/09/15 Vial Sliding Scale -] Lisinopril [Prinivil] 20 mg GT DAILY tablet 08/09/15 Metoprolol Tartrate Injection 5 mg IVPB Q6H PRN #0 vial 08/09/15 [Lopressor Injection -] Metoprolol Tartrate [Lopressor -] 100 mg GT BID tablet 08/09/15 Ondansetron Injection [Zofran 4 mg IVPB Q6H PRN #0 vial 08/09/15 Injection] Pantoprazole Suspension [Protonix 40 mg GT DAILY packet 08/09/15 Packets For Oral Suspension -] Vancomycin Oral Solution 125 mg GT Q6HPO ml 08/09/15 Assessment/Plan: 75 yo M with PMH HTN, DM, inguinal hernia a/w BRBPR and melena with multiple syncopal episodes. Dx with persistent diverticular bleed with R hemicolectomy, course complicated with CVA now in the ICU unresponsive and anoxic brain injury had tracheostomy on 07/23. also s/p PEG placement and iliac artery bleed s /p embolization 09/03/15. received a course of ABx for HCAp in Oct/nov 1- s/p Leukocytosis and fever: resolved will continue to monitor 2- b/l DVTS s/p IVC filter; anticoagulation is contraindicated due to severe GI bleed 3- GI bleed: resolved 4- anoxic brain injury 5- s/p Trach 07/23. s/p G-tube placement by IR today 6- DM controlled cont insulin 7- HTN cont antihypertensive meds 8 - dislodged G-tube s/p replacement of Gtube By IR 03/08/2016 9- hypernatremia due to dehydration resolved DVT Px: TEds - wound care ELevate HOB above 60 to avoid aspiration Glucerna 1.5 feeding 40cc/hr ---> goal 60cc/hr h20 is getting 50cc/hr - wound care ELevate HOB above 60 to avoid aspiration Glucerna 1.5 feeding 40cc/hr ---> goal 60cc/hr h20 is getting 50cc/hr
[2016-03-22] MEDS: INSULIN DETEMIR 100 UNITS/ML MDV SQ SCH (21:53)
[2016-03-23] MEDS: INSULIN SLIDING SCALE (NOVOLOG) 1 VIAL SQ SCH ×2 (06:01→18:18)
[2016-03-23] MEDS: AMINO ACIDS/PROTEIN HYDROLYS SUGAR-FREE 30 ML PACKET PO SCH (10:42)
[2016-03-23] MEDS: METOPROLOL TARTRATE 50 MG TABLET (FP) GT SCH ×2 (10:42→21:48)
[2016-03-23] MEDS: LACTOBACILLUS ACIDOPHILUS 1 EACH TAB (FP) PO SCH (10:42)
[2016-03-23] MEDS: amLODIPine BESYLATE 10 MG TABLET (FP) GT SCH (10:42)
[2016-03-23] MEDS: LISINOPRIL 20 MG TABLET (FP) GT SCH (10:42)
[2016-03-23] MEDS: MULTIVITAMINS THERAPEUTIC GT SCH (10:43)
[2016-03-23] MEDS: PANTOPRAZOLE SOD 40 MG SUSPENSION PACKET GT SCH (10:50)
--- NOTE | 2016-03-23 19:56 | PN ---
Progress Note (short form) - Note Progress Note: Lying in bed with no new complains. Vital Signs Temperature 97.8 F 03/23/16 14:30 Pulse Rate 92 H 03/23/16 14:30 Respiratory Rate 22 03/23/16 14:30 Blood Pressure 122/76 03/23/16 10:29 O2 Sat by Pulse Oximetry (%) 98 03/23/16 11:00 SKIN: Warm, dry, normal turgor, no rashes or lesions noted GENERAL: The patient has periods of somnolence, periods of wakefulness. EYES: Pupils equal, round and reactive to light, sclera anicteric, conjunctiva clear. ENT: Ears normal, Moist mucous membranes. positive for Trach collar, thin, white /sharma secretions. NECK: Normal range of motion, supple without lymphadenopathy, no JVD, or masses. LUNGS: Coarse breath sounds. No wheezes, and no crackles. HEART: Regular rate and rhythm, normal S1 and S2 without murmur, rub or gallop. ABDOMEN: Soft, nontender, normoactive bowel sounds. positive for G-tube EXTREMITIES: 2+ pulses, warm, well-perfused, no edema. NEUROLOGICAL: Unable to assess. SKIN: Wounds not visualized today. CBCD WBC 9.9 K/mm3 (4.0-10.0) 03/06/16 06:30 RBC 3.71 M/mm3 (4.00-5.60) L 03/06/16 06:30 Hgb 10.3 GM/dL (11.7-16.9) L 03/06/16 06:30 Hct 31.6 % (35.4-49) L 03/06/16 06:30 MCV 85.0 fl (80-96) 03/06/16 06:30 MCHC 32.6 g/dl (32.0-35.9) 03/06/16 06:30 RDW 15.2 % (11.9-15.9) 03/06/16 06:30 Plt Count 269 K/MM3 (134-434) D 03/06/16 06:30 MPV 9.0 fl (7.5-11.1) 03/06/16 06:30 CMP Sodium 138 mmol/L (136-145) 03/16/16 08:00 Potassium 3.9 mmol/L (3.5-5.1) 03/16/16 08:00 Chloride 99 mmol/L (98-107) 03/16/16 08:00 Carbon Dioxide 33 mmol/L (21-32) H 03/16/16 08:00 Anion Gap 6 (8-16) L 03/16/16 08:00 BUN 21 mg/dL (7-18) H D 03/16/16 08:00 Creatinine 0.8 mg/dL (0.7-1.3) 03/16/16 08:00 Creat Clearance w eGFR > 60 (>60) 03/02/16 07:45 Random Glucose 114 mg/dL (74-106) H 03/16/16 08:00 Calcium 9.7 mg/dL (8.5-10.1) 03/16/16 08:00 Total Bilirubin 0.2 mg/dL (0.2-1.0) 03/02/16 07:45 AST 15 U/L (15-37) 03/02/16 07:45 ALT 40 U/L (12-78) D 03/02/16 07:45 Alkaline Phosphatase 106 U/L (45-117) 03/02/16 07:45 Total Protein 7.8 g/dl (6.4-8.2) 03/02/16 07:45 Albumin 2.9 g/dl (3.4-5.0) L 03/02/16 07:45 CARDIAC ENZYMES Creatine Kinase 62 IU/L (38-174) 06/28/15 09:35 Troponin I 0.07 ng/ml (0.03-0.5) D 07/09/15 05:00 Current Medications Generic Name Dose Route Start Last Admin Trade Name Freq PRN Reason Stop Dose Admin Acetaminophen 650 mg 12/29/15 10:43 03/02/16 05:07 Tylenol Oral Solution - GT 650 mg Q6H PRN Administration FEVER Amino Acids 30 ml 03/01/16 10:00 03/23/16 10:42 Prostat Sugar-Free Packet - PO 30 ml DAILY KWAKU Administration Amlodipine Besylate 10 mg 12/30/15 10:00 03/23/16 10:42 Norvasc - GT 10 mg DAILY KWAKU Administration Guaifenesin 10 ml 12/29/15 10:43 03/17/16 21:49 Robitussin Dm - PO 10 ml Q6H PRN Administration COUGH Ibuprofen 200 mg 12/29/15 10:43 03/17/16 21:47 Motrin Oral Suspension - PO 200 mg Q6H PRN Administration FEVER Insulin Aspart 1 vial 01/28/16 16:30 03/23/16 18:18 Novolog Vial Sliding Scale - SQ Not Given BIDI [facility] Protocol Insulin Detemir 28 units 12/29/15 22:00 03/22/16 21:53 Levemir Vial SQ 28 units HS KWAKU Administration Lactobacillus Acidophilus 1 tab 12/30/15 10:00 03/23/16 10:42 Bacid - PO 1 tab DAILY KWAKU Administration Lisinopril 40 mg 12/30/15 10:00 03/23/16 10:42 Prinivil - GT 40 mg DAILY KWAKU Administration Metoprolol Tartrate 150 mg 12/29/15 22:00 03/23/16 10:42 Lopressor - GT 150 mg BID KWAKU Administration Metoprolol Tartrate 5 mg 12/29/15 10:43 Lopressor Injection - IVPB Q6H PRN HYPERTENSION Multivitamins 5 ml 12/30/15 10:00 03/23/16 10:43 Thera-Plus - GT 5 ml DAILY KWAKU Administration Pantoprazole Sodium 40 mg 12/30/15 10:00 03/23/16 10:50 Protonix Packets For Oral Suspension - GT 40 mg DAILY KWAKU Administration Assessment/Plan: 75 yo M with PMH HTN, DM, inguinal hernia a/w BRBPR and melena with multiple syncopal episodes. Dx with persistent diverticular bleed with R hemicolectomy, course complicated with CVA now in the ICU unresponsive and anoxic brain injury had tracheostomy on 07/23. also s/p PEG placement and iliac artery bleed s /p embolization 09/03/15. received a course of ABx for HCAp in Oct/nov 1- s/p Leukocytosis and fever: resolved 2- b/l DVTS s/p IVC filter; anticoagulation is contraindicated due to severe GI bleed 3- GI bleed: resolved 4- anoxic brain injury 5- s/p Trach 07/23. s/p G-tube placement by IR today 6- DM controlled cont insulin 7- HTN cont antihypertensive meds 8 - dislodged G-tube s/p replacement of Gtube By IR 03/08/2016 9- hypernatremia due to dehydration resolved DVT Px: TEds - wound care ELevate HOB above 60 to avoid aspiration Glucerna 1.5 feeding 40cc/hr ---> goal 60cc/hr h20 is getting 50cc/hr 5- s/p Trach 07/23. s/p G-tube placement by IR today 6- DM controlled cont insulin 7- HTN cont antihypertensive meds 8 - dislodged G-tube s/p replacement of Gtube By IR 03/08/2016 9- hypernatremia due to dehydration DVT Px: TEds - wound care ELevate HOB above 60 to avoid aspiration Glucerna 1.5 feeding 40cc/hr ---> goal 60cc/hr h20 is getting 50cc/hr
[2016-03-23] MEDS: INSULIN DETEMIR 100 UNITS/ML MDV SQ SCH (21:47)
[2016-03-24] MEDS: INSULIN SLIDING SCALE (NOVOLOG) 1 VIAL SQ SCH ×2 (06:19→16:33)
[2016-03-24] MEDS: METOPROLOL TARTRATE 50 MG TABLET (FP) GT SCH ×2 (10:35→21:37)
[2016-03-24] MEDS: LISINOPRIL 20 MG TABLET (FP) GT SCH (10:35)
[2016-03-24] MEDS: amLODIPine BESYLATE 10 MG TABLET (FP) GT SCH (10:35)
[2016-03-24] MEDS: AMINO ACIDS/PROTEIN HYDROLYS SUGAR-FREE 30 ML PACKET PO SCH (10:36)
[2016-03-24] MEDS: MULTIVITAMINS THERAPEUTIC GT SCH (10:37)
[2016-03-24] MEDS: PANTOPRAZOLE SOD 40 MG SUSPENSION PACKET GT SCH (10:37)
[2016-03-24] MEDS: LACTOBACILLUS ACIDOPHILUS 1 EACH TAB (FP) PO SCH (10:40)
--- NOTE | 2016-03-24 14:03 | PN ---
Progress Note (short form) - Note Progress Note: Patient is comfortable with no new changes, lying in bed with no acute distress Temperature 97.5 F L 03/24/16 08:00 Pulse Rate 90 03/24/16 11:10 Respiratory Rate 20 03/24/16 08:00 Blood Pressure 154/94 03/24/16 08:00 O2 Sat by Pulse Oximetry (%) 98 03/24/16 11:10 SKIN: Warm, dry, normal turgor, no rashes or lesions noted GENERAL: The patient has periods of somnolence, periods of wakefulness. EYES: Pupils equal, round and reactive to light, sclera anicteric, conjunctiva clear. ENT: Ears normal, Moist mucous membranes. positive for Trach collar, thin, white /sharma secretions. NECK: Normal range of motion, supple without lymphadenopathy, no JVD, or masses. LUNGS: Coarse breath sounds. No wheezes, and no crackles. HEART: Regular rate and rhythm, normal S1 and S2 without murmur, rub or gallop. ABDOMEN: Soft, nontender, normoactive bowel sounds. positive for G-tube EXTREMITIES: 2+ pulses, warm, well-perfused, no edema. NEUROLOGICAL: Unable to assess. SKIN: Wounds not visualized today. CBCD WBC 9.9 K/mm3 (4.0-10.0) 03/06/16 06:30 RBC 3.71 M/mm3 (4.00-5.60) L 03/06/16 06:30 Hgb 10.3 GM/dL (11.7-16.9) L 03/06/16 06:30 Hct 31.6 % (35.4-49) L 03/06/16 06:30 MCV 85.0 fl (80-96) 03/06/16 06:30 MCHC 32.6 g/dl (32.0-35.9) 03/06/16 06:30 RDW 15.2 % (11.9-15.9) 03/06/16 06:30 Plt Count 269 K/MM3 (134-434) D 03/06/16 06:30 MPV 9.0 fl (7.5-11.1) 03/06/16 06:30 CMP Sodium 138 mmol/L (136-145) 03/16/16 08:00 Potassium 3.9 mmol/L (3.5-5.1) 03/16/16 08:00 Chloride 99 mmol/L (98-107) 03/16/16 08:00 Carbon Dioxide 33 mmol/L (21-32) H 03/16/16 08:00 Anion Gap 6 (8-16) L 03/16/16 08:00 BUN 21 mg/dL (7-18) H D 03/16/16 08:00 Creatinine 0.8 mg/dL (0.7-1.3) 03/16/16 08:00 Creat Clearance w eGFR > 60 (>60) 03/02/16 07:45 Random Glucose 114 mg/dL (74-106) H 03/16/16 08:00 Calcium 9.7 mg/dL (8.5-10.1) 03/16/16 08:00 Total Bilirubin 0.2 mg/dL (0.2-1.0) 03/02/16 07:45 AST 15 U/L (15-37) 03/02/16 07:45 ALT 40 U/L (12-78) D 03/02/16 07:45 Alkaline Phosphatase 106 U/L (45-117) 03/02/16 07:45 Total Protein 7.8 g/dl (6.4-8.2) 03/02/16 07:45 Albumin 2.9 g/dl (3.4-5.0) L 03/02/16 07:45 CARDIAC ENZYMES Creatine Kinase 62 IU/L (38-174) 06/28/15 09:35 Troponin I 0.07 ng/ml (0.03-0.5) D 07/09/15 05:00 Current Medications Generic Name Dose Route Start Last Admin Trade Name Freq PRN Reason Stop Dose Admin Acetaminophen 650 mg 12/29/15 10:43 03/02/16 05:07 Tylenol Oral Solution - GT 650 mg Q6H PRN Administration FEVER Amino Acids 30 ml 03/01/16 10:00 03/24/16 10:36 Prostat Sugar-Free Packet - PO 30 ml DAILY KWAKU Administration Amlodipine Besylate 10 mg 12/30/15 10:00 03/24/16 10:35 Norvasc - GT 10 mg DAILY KWAKU Administration Guaifenesin 10 ml 12/29/15 10:43 03/17/16 21:49 Robitussin Dm - PO 10 ml Q6H PRN Administration COUGH Ibuprofen 200 mg 12/29/15 10:43 03/17/16 21:47 Motrin Oral Suspension - PO 200 mg Q6H PRN Administration FEVER Insulin Aspart 1 vial 01/28/16 16:30 03/24/16 06:19 Novolog Vial Sliding Scale - SQ Not Given BIDI [facility] Protocol Insulin Detemir 28 units 12/29/15 22:00 03/23/16 21:47 Levemir Vial SQ 28 units HS KWAKU Administration Lactobacillus Acidophilus 1 tab 12/30/15 10:00 03/24/16 10:40 Bacid - PO 1 tab DAILY KWAKU Administration Lisinopril 40 mg 12/30/15 10:00 03/24/16 10:35 Prinivil - GT 40 mg DAILY KWAKU Administration Metoprolol Tartrate 150 mg 12/29/15 22:00 03/24/16 10:35 Lopressor - GT 150 mg BID KWAKU Administration Metoprolol Tartrate 5 mg 12/29/15 10:43 Lopressor Injection - IVPB Q6H PRN HYPERTENSION Multivitamins 5 ml 12/30/15 10:00 03/24/16 10:37 Thera-Plus - GT 5 ml DAILY KWAKU Administration Pantoprazole Sodium 40 mg 12/30/15 10:00 03/24/16 10:37 Protonix Packets For Oral Suspension - GT 40 mg DAILY KWAKU Administration Medication Instructions Recorded Amino Acids/Protein Hydrolys 30 ml GT DAILY packet 08/09/15 [Prostat Sugar-Free Packet -] Amlodipine Besylate [Norvasc -] 10 mg GT DAILY tablet 08/09/15 Chlorhexidine Gluconate [Peridex -] 15 ml MM BID cup 08/09/15 Insulin (Levemir) [Levemir Flexpen 25 units SQ HS pen 08/09/15 -] Insulin (Novolog) [Novolog Flexpen 3 units SQ Q6HPO pen 08/09/15 -] Insulin Sliding Scale [Novolog 0 units SQ Q6HPO pen 08/09/15 Vial Sliding Scale -] Lisinopril [Prinivil] 20 mg GT DAILY tablet 08/09/15 Metoprolol Tartrate Injection 5 mg IVPB Q6H PRN #0 vial 08/09/15 [Lopressor Injection -] Metoprolol Tartrate [Lopressor -] 100 mg GT BID tablet 08/09/15 Ondansetron Injection [Zofran 4 mg IVPB Q6H PRN #0 vial 08/09/15 Injection] Pantoprazole Suspension [Protonix 40 mg GT DAILY packet 08/09/15 Packets For Oral Suspension -] Vancomycin Oral Solution 125 mg GT Q6HPO ml 08/09/15 Assessment/Plan: 75 yo M with PMH HTN, DM, inguinal hernia a/w BRBPR and melena with multiple syncopal episodes. Dx with persistent diverticular bleed with R hemicolectomy, course complicated with CVA now in the ICU unresponsive and anoxic brain injury had tracheostomy on 07/23. also s/p PEG placement and iliac artery bleed s /p embolization 09/03/15. received a course of ABx for HCAp in Oct/nov 1- s/p Leukocytosis and fever: resolved 2- b/l DVTS s/p IVC filter; anticoagulation is contraindicated due to severe GI bleed 3- GI bleed: resolved 4- anoxic brain injury 5- s/p Trach 07/23. s/p G-tube placement by IR today 6- DM controlled cont insulin with SS 7- HTN cont antihypertensive meds 8 - dislodged G-tube s/p replacement of Gtube By IR 03/08/2016 9- hypernatremia due to dehydration resolved DVT Px: TEds - wound care ELevate HOB above 60 to avoid aspiration Glucerna 1.5 feeding 40cc/hr ---> goal 60cc/hr h20 is getting 50cc/hr
[2016-03-24] MEDS: INSULIN DETEMIR 100 UNITS/ML MDV SQ SCH (21:38)
[2016-03-25] MEDS: INSULIN SLIDING SCALE (NOVOLOG) 1 VIAL SQ SCH ×2 (06:01→16:15)
[2016-03-25] MEDS: amLODIPine BESYLATE 10 MG TABLET (FP) GT SCH (10:04)
[2016-03-25] MEDS: LISINOPRIL 20 MG TABLET (FP) GT SCH (10:04)
[2016-03-25] MEDS: PANTOPRAZOLE SOD 40 MG SUSPENSION PACKET GT SCH (10:04)
[2016-03-25] MEDS: METOPROLOL TARTRATE 50 MG TABLET (FP) GT SCH ×2 (10:05→22:34)
[2016-03-25] MEDS: LACTOBACILLUS ACIDOPHILUS 1 EACH TAB (FP) PO SCH (10:05)
[2016-03-25] MEDS: AMINO ACIDS/PROTEIN HYDROLYS SUGAR-FREE 30 ML PACKET PO SCH (10:06)
[2016-03-25] MEDS: MULTIVITAMINS THERAPEUTIC GT SCH (10:06)
--- NOTE | 2016-03-25 19:06 | PN ---
Progress Note (short form) - Note Progress Note: No change with his status Vital Signs Temperature 98.1 F 03/25/16 18:00 Pulse Rate 83 03/25/16 18:00 Respiratory Rate 20 03/25/16 18:00 Blood Pressure 147/89 03/25/16 18:00 O2 Sat by Pulse Oximetry (%) 98 03/25/16 17:19 SKIN: Warm, dry, normal turgor, no rashes or lesions noted GENERAL: The patient has periods of somnolence, periods of wakefulness. EYES: Pupils equal, round and reactive to light, sclera anicteric, conjunctiva clear. ENT: Ears normal, Moist mucous membranes. positive for Trach collar, thin, white /sharma secretions. NECK: Normal range of motion, supple without lymphadenopathy, no JVD, or masses. LUNGS: Coarse breath sounds. No wheezes, and no crackles. HEART: Regular rate and rhythm, normal S1 and S2 without murmur, rub or gallop. ABDOMEN: Soft, nontender, normoactive bowel sounds. positive for G-tube EXTREMITIES: 2+ pulses, warm, well-perfused, no edema. NEUROLOGICAL: Unable to assess. SKIN: Wounds not visualized today. CBCD WBC 9.9 K/mm3 (4.0-10.0) 03/06/16 06:30 RBC 3.71 M/mm3 (4.00-5.60) L 03/06/16 06:30 Hgb 10.3 GM/dL (11.7-16.9) L 03/06/16 06:30 Hct 31.6 % (35.4-49) L 03/06/16 06:30 MCV 85.0 fl (80-96) 03/06/16 06:30 MCHC 32.6 g/dl (32.0-35.9) 03/06/16 06:30 RDW 15.2 % (11.9-15.9) 03/06/16 06:30 Plt Count 269 K/MM3 (134-434) D 03/06/16 06:30 MPV 9.0 fl (7.5-11.1) 03/06/16 06:30 CMP Sodium 138 mmol/L (136-145) 03/16/16 08:00 Potassium 3.9 mmol/L (3.5-5.1) 03/16/16 08:00 Chloride 99 mmol/L (98-107) 03/16/16 08:00 Carbon Dioxide 33 mmol/L (21-32) H 03/16/16 08:00 Anion Gap 6 (8-16) L 03/16/16 08:00 BUN 21 mg/dL (7-18) H D 03/16/16 08:00 Creatinine 0.8 mg/dL (0.7-1.3) 03/16/16 08:00 Creat Clearance w eGFR > 60 (>60) 03/02/16 07:45 Random Glucose 114 mg/dL (74-106) H 03/16/16 08:00 Calcium 9.7 mg/dL (8.5-10.1) 03/16/16 08:00 Total Bilirubin 0.2 mg/dL (0.2-1.0) 03/02/16 07:45 AST 15 U/L (15-37) 03/02/16 07:45 ALT 40 U/L (12-78) D 03/02/16 07:45 Alkaline Phosphatase 106 U/L (45-117) 03/02/16 07:45 Total Protein 7.8 g/dl (6.4-8.2) 03/02/16 07:45 Albumin 2.9 g/dl (3.4-5.0) L 03/02/16 07:45 CARDIAC ENZYMES Creatine Kinase 62 IU/L (38-174) 06/28/15 09:35 Troponin I 0.07 ng/ml (0.03-0.5) D 07/09/15 05:00 Current Medications Generic Name Dose Route Start Last Admin Trade Name Freq PRN Reason Stop Dose Admin Acetaminophen 650 mg 12/29/15 10:43 03/02/16 05:07 Tylenol Oral Solution - GT 650 mg Q6H PRN Administration FEVER Amino Acids 30 ml 03/01/16 10:00 03/25/16 10:06 Prostat Sugar-Free Packet - PO 30 ml DAILY KWAKU Administration Amlodipine Besylate 10 mg 12/30/15 10:00 03/25/16 10:04 Norvasc - GT 10 mg DAILY KWAKU Administration Guaifenesin 10 ml 12/29/15 10:43 03/17/16 21:49 Robitussin Dm - PO 10 ml Q6H PRN Administration COUGH Ibuprofen 200 mg 12/29/15 10:43 03/17/16 21:47 Motrin Oral Suspension - PO 200 mg Q6H PRN Administration FEVER Insulin Aspart 1 vial 01/28/16 16:30 03/25/16 16:15 Novolog Vial Sliding Scale - SQ Not Given BIDI [facility] Protocol Insulin Detemir 28 units 12/29/15 22:00 03/24/16 21:38 Levemir Vial SQ 28 units HS KWAKU Administration Lactobacillus Acidophilus 1 tab 12/30/15 10:00 03/25/16 10:05 Bacid - PO 1 tab DAILY KWAKU Administration Lisinopril 40 mg 12/30/15 10:00 03/25/16 10:04 Prinivil - GT 40 mg DAILY KWAKU Administration Metoprolol Tartrate 150 mg 12/29/15 22:00 03/25/16 10:05 Lopressor - GT 150 mg BID KWAKU Administration Metoprolol Tartrate 5 mg 12/29/15 10:43 Lopressor Injection - IVPB Q6H PRN HYPERTENSION Multivitamins 5 ml 12/30/15 10:00 03/25/16 10:06 Thera-Plus - GT 5 ml DAILY KWAKU Administration Pantoprazole Sodium 40 mg 12/30/15 10:00 03/25/16 10:04 Protonix Packets For Oral Suspension - GT 40 mg DAILY KWAKU Administration Medication Instructions Recorded Amino Acids/Protein Hydrolys 30 ml GT DAILY packet 08/09/15 [Prostat Sugar-Free Packet -] Amlodipine Besylate [Norvasc -] 10 mg GT DAILY tablet 08/09/15 Chlorhexidine Gluconate [Peridex -] 15 ml MM BID cup 08/09/15 Insulin (Levemir) [Levemir Flexpen 25 units SQ HS pen 08/09/15 -] Insulin (Novolog) [Novolog Flexpen 3 units SQ Q6HPO pen 08/09/15 -] Insulin Sliding Scale [Novolog 0 units SQ Q6HPO pen 08/09/15 Vial Sliding Scale -] Lisinopril [Prinivil] 20 mg GT DAILY tablet 08/09/15 Metoprolol Tartrate Injection 5 mg IVPB Q6H PRN #0 vial 08/09/15 [Lopressor Injection -] Metoprolol Tartrate [Lopressor -] 100 mg GT BID tablet 08/09/15 Ondansetron Injection [Zofran 4 mg IVPB Q6H PRN #0 vial 08/09/15 Injection] Pantoprazole Suspension [Protonix 40 mg GT DAILY packet 08/09/15 Packets For Oral Suspension -] Vancomycin Oral Solution 125 mg GT Q6HPO ml 08/09/15 Assessment/Plan: 75 yo M with PMH HTN, DM, inguinal hernia a/w BRBPR and melena with multiple syncopal episodes. Dx with persistent diverticular bleed with R hemicolectomy, course complicated with CVA now in the ICU unresponsive and anoxic brain injury had tracheostomy on 07/23. also s/p PEG placement and iliac artery bleed s /p embolization 09/03/15. received a course of ABx for HCAp in Oct/nov 29.anoxic brain injury 2. s/p Leukocytosis and fever: resolved 3- b/l DVTS s/p IVC filter; anticoagulation is contraindicated due to severe GI bleed 4- GI bleed: resolved 5- s/p Trach 07/23. s/p G-tube placement by IR today 6- DM controlled cont insulin 7- HTN cont antihypertensive meds 8 - dislodged G-tube s/p replacement of Gtube By IR 03/08/2016 9- hypernatremia due to dehydration resolved DVT Px: TEds - wound care ELevate HOB above 60 to avoid aspiration Glucerna 1.5 feeding 40cc/hr ---> goal 60cc/hr h20 is getting 50cc/hr Glucerna 1.5 feeding 40cc/hr ---> goal 60cc/hr h20 is getting 50cc/hr
[2016-03-25] MEDS: INSULIN DETEMIR 100 UNITS/ML MDV SQ SCH (22:34)
[2016-03-26] MEDS: INSULIN SLIDING SCALE (NOVOLOG) 1 VIAL SQ SCH ×2 (06:38→17:25)
[2016-03-26] MEDS: MULTIVITAMINS THERAPEUTIC GT SCH (10:32)
[2016-03-26] MEDS: LACTOBACILLUS ACIDOPHILUS 1 EACH TAB (FP) PO SCH (10:32)
[2016-03-26] MEDS: PANTOPRAZOLE SOD 40 MG SUSPENSION PACKET GT SCH (10:32)
[2016-03-26] MEDS: AMINO ACIDS/PROTEIN HYDROLYS SUGAR-FREE 30 ML PACKET PO SCH (10:33)
[2016-03-26] MEDS: LISINOPRIL 20 MG TABLET (FP) GT SCH (10:34)
[2016-03-26] MEDS: METOPROLOL TARTRATE 50 MG TABLET (FP) GT SCH ×2 (10:35→21:31)
[2016-03-26] MEDS: amLODIPine BESYLATE 10 MG TABLET (FP) GT SCH (10:35)
[2016-03-26] MEDS: INSULIN DETEMIR 100 UNITS/ML MDV SQ SCH (21:30)
[2016-03-27] MEDS: INSULIN SLIDING SCALE (NOVOLOG) 1 VIAL SQ SCH ×2 (06:13→18:05)
[2016-03-27] MEDS: MULTIVITAMINS THERAPEUTIC GT SCH (09:35)
[2016-03-27] MEDS: PANTOPRAZOLE SOD 40 MG SUSPENSION PACKET GT SCH (09:35)
[2016-03-27] MEDS: METOPROLOL TARTRATE 50 MG TABLET (FP) GT SCH ×2 (09:36→21:51)
[2016-03-27] MEDS: AMINO ACIDS/PROTEIN HYDROLYS SUGAR-FREE 30 ML PACKET PO SCH (09:36)
[2016-03-27] MEDS: amLODIPine BESYLATE 10 MG TABLET (FP) GT SCH (09:37)
[2016-03-27] MEDS: LISINOPRIL 20 MG TABLET (FP) GT SCH (09:37)
[2016-03-27] MEDS: LACTOBACILLUS ACIDOPHILUS 1 EACH TAB (FP) PO SCH (09:37)
--- NOTE | 2016-03-27 17:04 | PN ---
Progress Note (short form) - Note Progress Note: Called by the stating that the patient is having soft stool. Vital Signs 03/27/16 03/27/16 03/27/16 09:30 10:00 14:57 Temperature 100.6 F H 100.4 F H Pulse Rate 79 85 Respiratory 24 20 Rate Blood Pressure 143/84 158/95 O2 Sat by Pulse 100 Oximetry (%) SKIN: Warm, dry, normal turgor, no rashes or lesions noted GENERAL: The patient has periods of somnolence, periods of wakefulness. EYES: Pupils equal, round and reactive to light, sclera anicteric, conjunctiva clear. ENT: Ears normal, Moist mucous membranes. positive for Trach collar, thin, white /sharma secretions. NECK: Normal range of motion, supple without lymphadenopathy, no JVD, or masses. LUNGS: Coarse breath sounds. No wheezes, and no crackles. HEART: Regular rate and rhythm, normal S1 and S2 without murmur, rub or gallop. ABDOMEN: Soft, nontender, normoactive bowel sounds. positive for G-tube EXTREMITIES: 2+ pulses, warm, well-perfused, no edema. NEUROLOGICAL: Unable to assess. SKIN: Wounds not visualized today. CBCD WBC 9.9 K/mm3 (4.0-10.0) 03/06/16 06:30 RBC 3.71 M/mm3 (4.00-5.60) L 03/06/16 06:30 Hgb 10.3 GM/dL (11.7-16.9) L 03/06/16 06:30 Hct 31.6 % (35.4-49) L 03/06/16 06:30 MCV 85.0 fl (80-96) 03/06/16 06:30 MCHC 32.6 g/dl (32.0-35.9) 03/06/16 06:30 RDW 15.2 % (11.9-15.9) 03/06/16 06:30 Plt Count 269 K/MM3 (134-434) D 03/06/16 06:30 MPV 9.0 fl (7.5-11.1) 03/06/16 06:30 CMP Sodium 138 mmol/L (136-145) 03/16/16 08:00 Potassium 3.9 mmol/L (3.5-5.1) 03/16/16 08:00 Chloride 99 mmol/L (98-107) 03/16/16 08:00 Carbon Dioxide 33 mmol/L (21-32) H 03/16/16 08:00 Anion Gap 6 (8-16) L 03/16/16 08:00 BUN 21 mg/dL (7-18) H D 03/16/16 08:00 Creatinine 0.8 mg/dL (0.7-1.3) 03/16/16 08:00 Creat Clearance w eGFR > 60 (>60) 03/02/16 07:45 Random Glucose 114 mg/dL (74-106) H 03/16/16 08:00 Calcium 9.7 mg/dL (8.5-10.1) 03/16/16 08:00 Total Bilirubin 0.2 mg/dL (0.2-1.0) 03/02/16 07:45 AST 15 U/L (15-37) 03/02/16 07:45 ALT 40 U/L (12-78) D 03/02/16 07:45 Alkaline Phosphatase 106 U/L (45-117) 03/02/16 07:45 Total Protein 7.8 g/dl (6.4-8.2) 03/02/16 07:45 Albumin 2.9 g/dl (3.4-5.0) L 03/02/16 07:45 CARDIAC ENZYMES Creatine Kinase 62 IU/L (38-174) 06/28/15 09:35 Troponin I 0.07 ng/ml (0.03-0.5) D 07/09/15 05:00 Current Medications Generic Name Dose Route Start Last Admin Trade Name Freq PRN Reason Stop Dose Admin Acetaminophen 650 mg 12/29/15 10:43 03/02/16 05:07 Tylenol Oral Solution - GT 650 mg Q6H PRN Administration FEVER Amino Acids 30 ml 03/01/16 10:00 03/27/16 09:36 Prostat Sugar-Free Packet - PO 30 ml DAILY KWAKU Administration Amlodipine Besylate 10 mg 12/30/15 10:00 03/27/16 09:37 Norvasc - GT 10 mg DAILY KWAKU Administration Guaifenesin 10 ml 12/29/15 10:43 03/17/16 21:49 Robitussin Dm - PO 10 ml Q6H PRN Administration COUGH Ibuprofen 200 mg 12/29/15 10:43 03/17/16 21:47 Motrin Oral Suspension - PO 200 mg Q6H PRN Administration FEVER Insulin Aspart 1 vial 01/28/16 16:30 03/27/16 06:13 Novolog Vial Sliding Scale - SQ Not Given BIDI [facility] Protocol Insulin Detemir 28 units 12/29/15 22:00 03/26/16 21:30 Levemir Vial SQ 28 units HS KWAKU Administration Lactobacillus Acidophilus 1 tab 12/30/15 10:00 03/27/16 09:37 Bacid - PO 1 tab DAILY KWAKU Administration Lisinopril 40 mg 12/30/15 10:00 03/27/16 09:37 Prinivil - GT 40 mg DAILY KWAKU Administration Metoprolol Tartrate 150 mg 12/29/15 22:00 03/27/16 09:36 Lopressor - GT 150 mg BID KWAKU Administration Metoprolol Tartrate 5 mg 12/29/15 10:43 Lopressor Injection - IVPB Q6H PRN HYPERTENSION Multivitamins 5 ml 12/30/15 10:00 03/27/16 09:35 Thera-Plus - GT 5 ml DAILY KWAKU Administration Pantoprazole Sodium 40 mg 12/30/15 10:00 03/27/16 09:35 Protonix Packets For Oral Suspension - GT 40 mg DAILY KWAKU Administration Medication Instructions Recorded Amino Acids/Protein Hydrolys 30 ml GT DAILY packet 08/09/15 [Prostat Sugar-Free Packet -] Amlodipine Besylate [Norvasc -] 10 mg GT DAILY tablet 08/09/15 Chlorhexidine Gluconate [Peridex -] 15 ml MM BID cup 08/09/15 Insulin (Levemir) [Levemir Flexpen 25 units SQ HS pen 08/09/15 -] Insulin (Novolog) [Novolog Flexpen 3 units SQ Q6HPO pen 08/09/15 -] Insulin Sliding Scale [Novolog 0 units SQ Q6HPO pen 08/09/15 Vial Sliding Scale -] Lisinopril [Prinivil] 20 mg GT DAILY tablet 08/09/15 Metoprolol Tartrate Injection 5 mg IVPB Q6H PRN #0 vial 08/09/15 [Lopressor Injection -] Metoprolol Tartrate [Lopressor -] 100 mg GT BID tablet 08/09/15 Ondansetron Injection [Zofran 4 mg IVPB Q6H PRN #0 vial 08/09/15 Injection] Pantoprazole Suspension [Protonix 40 mg GT DAILY packet 08/09/15 Packets For Oral Suspension -] Vancomycin Oral Solution 125 mg GT Q6HPO ml 08/09/15 Assessment/Plan: 75 yo M with PMH HTN, DM, inguinal hernia a/w BRBPR and melena with multiple syncopal episodes. Dx with persistent diverticular bleed with R hemicolectomy, course complicated with CVA now in the ICU unresponsive and anoxic brain injury had tracheostomy on 07/23. also s/p PEG placement and iliac artery bleed s /p embolization 09/03/15. received a course of ABx for HCAp in Oct/nov # Soft Stool was send for possible CDiff. , called the plastic molder change the feeding to a different feeding since having multiple oft stool. 1- s/p Leukocytosis and fever: resolved 2- b/l DVTS s/p IVC filter; anticoagulation is contraindicated due to severe GI bleed 3- GI bleed: resolved 4- anoxic brain injury 5- s/p Trach 07/23. s/p G-tube placement by IR today 6- DM controlled cont insulin 7- HTN cont antihypertensive meds 8 - dislodged G-tube s/p replacement of Gtube By IR 03/08/2016 9- hypernatremia due to dehydration resolved DVT Px: TEds - wound care ELevate HOB above 60 to avoid aspiration Glucerna 1.5 feeding 40cc/hr ---> goal 60cc/hr h20 is getting 50cc/hr
[2016-03-27] MEDS: INSULIN DETEMIR 100 UNITS/ML MDV SQ SCH (21:51)
[2016-03-28] MEDS: INSULIN SLIDING SCALE (NOVOLOG) 1 VIAL SQ SCH ×2 (06:23→17:30)
[2016-03-28] MEDS: amLODIPine BESYLATE 10 MG TABLET (FP) GT SCH (10:34)
[2016-03-28] MEDS: METOPROLOL TARTRATE 50 MG TABLET (FP) GT SCH ×2 (10:34→22:25)
[2016-03-28] MEDS: PANTOPRAZOLE SOD 40 MG SUSPENSION PACKET GT SCH (10:34)
[2016-03-28] MEDS: LACTOBACILLUS ACIDOPHILUS 1 EACH TAB (FP) PO SCH (10:34)
[2016-03-28] MEDS: LISINOPRIL 20 MG TABLET (FP) GT SCH (10:34)
[2016-03-28] MEDS: AMINO ACIDS/PROTEIN HYDROLYS SUGAR-FREE 30 ML PACKET PO SCH (10:35)
[2016-03-28] MEDS: MULTIVITAMINS THERAPEUTIC GT SCH (10:35)
--- NOTE | 2016-03-28 21:12 | PN ---
Progress Note (short form) - Note Progress Note: No change with his status. Temperature 98.4 F 03/28/16 18:00 Pulse Rate 95 H 03/28/16 18:00 Respiratory Rate 20 03/28/16 18:00 Blood Pressure 151/96 03/28/16 18:00 O2 Sat by Pulse Oximetry (%) 98 03/28/16 10:54 SKIN: Warm, dry, normal turgor, no rashes or lesions noted GENERAL: The patient has periods of somnolence, periods of wakefulness. EYES: Pupils equal, round and reactive to light, sclera anicteric, conjunctiva clear. ENT: Ears normal, Moist mucous membranes. positive for Trach collar, thin, white /sharma secretions. NECK: Normal range of motion, supple without lymphadenopathy, no JVD, or masses. LUNGS: Coarse breath sounds. No wheezes, and no crackles. HEART: Regular rate and rhythm, normal S1 and S2 without murmur, rub or gallop. ABDOMEN: Soft, nontender, normoactive bowel sounds. positive for G-tube EXTREMITIES: 2+ pulses, warm, well-perfused, no edema. NEUROLOGICAL: Unable to assess. SKIN: Wounds not visualized today. CBCD WBC 9.9 K/mm3 (4.0-10.0) 03/06/16 06:30 RBC 3.71 M/mm3 (4.00-5.60) L 03/06/16 06:30 Hgb 10.3 GM/dL (11.7-16.9) L 03/06/16 06:30 Hct 31.6 % (35.4-49) L 03/06/16 06:30 MCV 85.0 fl (80-96) 03/06/16 06:30 MCHC 32.6 g/dl (32.0-35.9) 03/06/16 06:30 RDW 15.2 % (11.9-15.9) 03/06/16 06:30 Plt Count 269 K/MM3 (134-434) D 03/06/16 06:30 MPV 9.0 fl (7.5-11.1) 03/06/16 06:30 CMP Sodium 138 mmol/L (136-145) 03/16/16 08:00 Potassium 3.9 mmol/L (3.5-5.1) 03/16/16 08:00 Chloride 99 mmol/L (98-107) 03/16/16 08:00 Carbon Dioxide 33 mmol/L (21-32) H 03/16/16 08:00 Anion Gap 6 (8-16) L 03/16/16 08:00 BUN 21 mg/dL (7-18) H D 03/16/16 08:00 Creatinine 0.8 mg/dL (0.7-1.3) 03/16/16 08:00 Creat Clearance w eGFR > 60 (>60) 03/02/16 07:45 Random Glucose 114 mg/dL (74-106) H 03/16/16 08:00 Calcium 9.7 mg/dL (8.5-10.1) 03/16/16 08:00 Total Bilirubin 0.2 mg/dL (0.2-1.0) 03/02/16 07:45 AST 15 U/L (15-37) 03/02/16 07:45 ALT 40 U/L (12-78) D 03/02/16 07:45 Alkaline Phosphatase 106 U/L (45-117) 03/02/16 07:45 Total Protein 7.8 g/dl (6.4-8.2) 03/02/16 07:45 Albumin 2.9 g/dl (3.4-5.0) L 03/02/16 07:45 CARDIAC ENZYMES Creatine Kinase 62 IU/L (38-174) 06/28/15 09:35 Troponin I 0.07 ng/ml (0.03-0.5) D 07/09/15 05:00 Current Medications Generic Name Dose Route Start Last Admin Trade Name Freq PRN Reason Stop Dose Admin Acetaminophen 650 mg 12/29/15 10:43 03/02/16 05:07 Tylenol Oral Solution - GT 650 mg Q6H PRN Administration FEVER Amino Acids 30 ml 03/01/16 10:00 03/28/16 10:35 Prostat Sugar-Free Packet - PO 30 ml DAILY KWAKU Administration Amlodipine Besylate 10 mg 12/30/15 10:00 03/28/16 10:34 Norvasc - GT 10 mg DAILY KWAKU Administration Guaifenesin 10 ml 12/29/15 10:43 03/17/16 21:49 Robitussin Dm - PO 10 ml Q6H PRN Administration COUGH Ibuprofen 200 mg 12/29/15 10:43 03/17/16 21:47 Motrin Oral Suspension - PO 200 mg Q6H PRN Administration FEVER Insulin Aspart 1 vial 01/28/16 16:30 03/28/16 17:30 Novolog Vial Sliding Scale - SQ Not Given BIDI [facility] Protocol Insulin Detemir 28 units 12/29/15 22:00 03/27/16 21:51 Levemir Vial SQ 28 units HS KWAKU Administration Lactobacillus Acidophilus 1 tab 12/30/15 10:00 03/28/16 10:34 Bacid - PO 1 tab DAILY KWAKU Administration Lisinopril 40 mg 12/30/15 10:00 03/28/16 10:34 Prinivil - GT 40 mg DAILY KWAKU Administration Metoprolol Tartrate 150 mg 12/29/15 22:00 03/28/16 10:34 Lopressor - GT 150 mg BID KWAKU Administration Metoprolol Tartrate 5 mg 12/29/15 10:43 Lopressor Injection - IVPB Q6H PRN HYPERTENSION Multivitamins 5 ml 12/30/15 10:00 03/28/16 10:35 Thera-Plus - GT 5 ml DAILY KWAKU Administration Pantoprazole Sodium 40 mg 12/30/15 10:00 03/28/16 10:34 Protonix Packets For Oral Suspension - GT 40 mg DAILY KWAKU Administration Medication Instructions Recorded Amino Acids/Protein Hydrolys 30 ml GT DAILY packet 08/09/15 [Prostat Sugar-Free Packet -] Amlodipine Besylate [Norvasc -] 10 mg GT DAILY tablet 08/09/15 Chlorhexidine Gluconate [Peridex -] 15 ml MM BID cup 08/09/15 Insulin (Levemir) [Levemir Flexpen 25 units SQ HS pen 08/09/15 -] Insulin (Novolog) [Novolog Flexpen 3 units SQ Q6HPO pen 08/09/15 -] Insulin Sliding Scale [Novolog 0 units SQ Q6HPO pen 08/09/15 Vial Sliding Scale -] Lisinopril [Prinivil] 20 mg GT DAILY tablet 08/09/15 Metoprolol Tartrate Injection 5 mg IVPB Q6H PRN #0 vial 08/09/15 [Lopressor Injection -] Metoprolol Tartrate [Lopressor -] 100 mg GT BID tablet 08/09/15 Ondansetron Injection [Zofran 4 mg IVPB Q6H PRN #0 vial 08/09/15 Injection] Pantoprazole Suspension [Protonix 40 mg GT DAILY packet 08/09/15 Packets For Oral Suspension -] Vancomycin Oral Solution 125 mg GT Q6HPO ml 08/09/15 Microbiology 03/27/16 15:25 Clostridium difficile Antigen (MACHO) - Final Stool Clostridium difficile Toxin Assay - Final Assessment/Plan: 75 yo M with PMH HTN, DM, inguinal hernia a/w BRBPR and melena with multiple syncopal episodes. Dx with persistent diverticular bleed with R hemicolectomy, course complicated with CVA now in the ICU unresponsive and anoxic brain injury had tracheostomy on 07/23. also s/p PEG placement and iliac artery bleed s /p embolization 09/03/15. received a course of ABx for HCAp in Oct/nov Stool is negative for cdiff, most likely need to be changed to a different feeding if soft stool continues perhaps cholestyramine needs to be added. 1- s/p Leukocytosis and fever: resolved 2- b/l DVTS s/p IVC filter; anticoagulation is contraindicated due to severe GI bleed 3- GI bleed: resolved 4- anoxic brain injury 5- s/p Trach 07/23. s/p G-tube placement by IR today 6- DM controlled cont insulin 7- HTN cont antihypertensive meds 8 - dislodged G-tube s/p replacement of Gtube By IR 03/08/2016 9- hypernatremia due to dehydration resolved DVT Px: TEds - wound care ELevate HOB above 60 to avoid aspiration Glucerna 1.5 feeding 40cc/hr ---> goal 60cc/hr h20 is getting 50cc/hr will recheck his labs.
[2016-03-28] MEDS: INSULIN DETEMIR 100 UNITS/ML MDV SQ SCH (22:35)
[2016-03-29] MEDS: INSULIN SLIDING SCALE (NOVOLOG) 1 VIAL SQ SCH ×2 (06:38→17:32)
[2016-03-29 07:56] LABS: BASOPHIL 0.7 % (0-2.0); EOSINOPHIL 3.5 % (0-4.5); MCH 27.8 pg (25.7-33.7); MCHC 32.5 g/dl (32.0-35.9); MEAN CELL VOLUME 85.7 fl (80-96); MEAN PLT VOLUME 9.1 fl (7.5-11.1); NEUTROPHILS 64.3 % (42.8-82.8); PLATELET COUNT 204 K/MM3 (134-434); RDW 17.1 % (11.9-15.9); WHITE BLOOD COUNT 6.9 K/mm3 (4.0-10.0)
[2016-03-29 08:27] LABS: ALBUMIN 3.4 g/dl (3.4-5.0); ALK PHOS 124 U/L (45-117); ANION GAP 7 (8-16); BILIRUBIN,TOTAL 0.3 mg/dL (0.2-1.0); CALCIUM 9.9 mg/dL (8.5-10.1); CO2 31 mmol/L (21-32); CREATININE 0.9 mg/dL (0.7-1.3); GLUCOSE,RANDOM 94 mg/dL (74-106); MAGNESIUM 2.4 mg/dL (1.8-2.4); PHOSPHOROUS 3.3 mg/dL (2.5-4.9); SGOT/AST 45 U/L (15-37); SGPT/ALT 103 U/L (12-78); TOT PROT 8.2 g/dl (6.4-8.2)
[2016-03-29] MEDS: METOPROLOL TARTRATE 50 MG TABLET (FP) GT SCH ×2 (13:10→22:01)
[2016-03-29] MEDS: amLODIPine BESYLATE 10 MG TABLET (FP) GT SCH (13:11)
[2016-03-29] MEDS: AMINO ACIDS/PROTEIN HYDROLYS SUGAR-FREE 30 ML PACKET PO SCH (13:11)
[2016-03-29] MEDS: PANTOPRAZOLE SOD 40 MG SUSPENSION PACKET GT SCH (13:11)
[2016-03-29] MEDS: LISINOPRIL 20 MG TABLET (FP) GT SCH (13:12)
[2016-03-29] MEDS: LACTOBACILLUS ACIDOPHILUS 1 EACH TAB (FP) PO SCH (13:12)
[2016-03-29] MEDS: MULTIVITAMINS THERAPEUTIC GT SCH (13:12)
--- NOTE | 2016-03-29 16:16 | PN ---
Progress Note (short form) - Note Progress Note: Hospitalist Progress Note SUBJECTIVE: Patient seen and examined at bedside. NAD noted. Awake. Spontaneous movement. OBJECTIVE: Vital Signs Period Temp Pulse Resp BP Sys/Santiago Pulse Ox Last 24 Hr 97.5 F-98.8 F 78-95 20-24 129-151/78-96 96-99 GENERAL: no acute distress. Awake. PULMONARY:Tach collar placed, rhonchi. CARDIOVASCULAR: nS1,S2, RRR, no RMG ABDOMINAL: soft, nontender, nondistended, normoactive bowel sounds. Peg tube CDI. EXTREMITIES: warm, well perfused, no edema. 2+ DP/PT bilaterally NEUROLOGICAL:spontaneous eye movement, non verbal. Unable to fully assess. CBCD WBC 6.9 K/mm3 (4.0-10.0) D 03/29/16 06:10 RBC 3.70 M/mm3 (4.00-5.60) L 03/29/16 06:10 Hgb 10.3 GM/dL (11.7-16.9) L 03/29/16 06:10 Hct 31.7 % (35.4-49) L 03/29/16 06:10 MCV 85.7 fl (80-96) 03/29/16 06:10 MCHC 32.5 g/dl (32.0-35.9) 03/29/16 06:10 RDW 17.1 % (11.9-15.9) H D 03/29/16 06:10 Plt Count 204 K/MM3 (134-434) D 03/29/16 06:10 MPV 9.1 fl (7.5-11.1) 03/29/16 06:10 CMP Sodium 140 mmol/L (136-145) 03/29/16 06:10 Potassium 3.6 mmol/L (3.5-5.1) 03/29/16 06:10 Chloride 102 mmol/L (98-107) 03/29/16 06:10 Carbon Dioxide 31 mmol/L (21-32) 03/29/16 06:10 Anion Gap 7 (8-16) L 03/29/16 06:10 BUN 24 mg/dL (7-18) H 03/29/16 06:10 Creatinine 0.9 mg/dL (0.7-1.3) 03/29/16 06:10 Creat Clearance w eGFR > 60 (>60) 03/29/16 06:10 Calcium 9.9 mg/dL (8.5-10.1) 03/29/16 06:10 Total Bilirubin 0.3 mg/dL (0.2-1.0) D 03/29/16 06:10 AST 45 U/L (15-37) H D 03/29/16 06:10 ALT 103 U/L (12-78) H D 03/29/16 06:10 Alkaline Phosphatase 124 U/L (45-117) H 03/29/16 06:10 Total Protein 8.2 g/dl (6.4-8.2) 03/29/16 06:10 Albumin 3.4 g/dl (3.4-5.0) 03/29/16 06:10 Current Medications Generic Name Dose Route Start Last Admin Trade Name Freq PRN Reason Stop Dose Admin Acetaminophen 650 mg 12/29/15 10:43 03/02/16 05:07 Tylenol Oral Solution - GT 650 mg Q6H PRN Administration FEVER Amino Acids 30 ml 03/01/16 10:00 03/29/16 13:11 Prostat Sugar-Free Packet - PO 30 ml DAILY KWAKU Administration Amlodipine Besylate 10 mg 12/30/15 10:00 03/29/16 13:11 Norvasc - GT 10 mg DAILY KWAKU Administration Guaifenesin 10 ml 12/29/15 10:43 03/17/16 21:49 Robitussin Dm - PO 10 ml Q6H PRN Administration COUGH Ibuprofen 200 mg 12/29/15 10:43 03/17/16 21:47 Motrin Oral Suspension - PO 200 mg Q6H PRN Administration FEVER Insulin Aspart 1 vial 01/28/16 16:30 03/29/16 06:38 Novolog Vial Sliding Scale - SQ Not Given BIDI [facility] Protocol Insulin Detemir 28 units 12/29/15 22:00 03/28/16 22:35 Levemir Vial SQ 28 units HS KWAKU Administration Lactobacillus Acidophilus 1 tab 12/30/15 10:00 03/29/16 13:12 Bacid - PO 1 tab DAILY KWAKU Administration Lisinopril 40 mg 12/30/15 10:00 03/29/16 13:12 Prinivil - GT 40 mg DAILY KWAKU Administration Metoprolol Tartrate 150 mg 12/29/15 22:00 03/29/16 13:10 Lopressor - GT 150 mg BID KWAKU Administration Metoprolol Tartrate 5 mg 12/29/15 10:43 Lopressor Injection - IVPB Q6H PRN HYPERTENSION Multivitamins 5 ml 12/30/15 10:00 03/29/16 13:12 Thera-Plus - GT 5 ml DAILY KWAKU Administration Pantoprazole Sodium 40 mg 12/30/15 10:00 03/29/16 13:11 Protonix Packets For Oral Suspension - GT 40 mg DAILY KWAKU Administration Assessment/Plan: Patient is a 75 year old male with PMHx of HTN, IDDM, inguinal hernia who presented to the ED with diverticular bleed s/p Righ hemicolectomy with 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 Leukocytosis, resolved - monitor for fevers Bilateral DVTS -s/p IVC filter Respiratory failure secondary to anoxic brain injury -Cont trach collar -Albuterol neb PRN Hypertension -Continue Lisinopril/Metoprolol/Amlodipine Multiple pressure ulcers - wound care - turn and position hypernatremia - likely due to dehydration - resolved Elevated LFTS - repeat LFTs to monitor IDDM -Levemir 28 units HS -Novolog sliding scale coverage -fingersticks F/E/N: - PEG tube - Tube feeds: Vital 1.5 @60ml/hr Prophylaxis: - SCDs bilaterally CODE STATUS: DNR
[2016-03-29] MEDS: INSULIN DETEMIR 100 UNITS/ML MDV SQ SCH (22:04)
[2016-03-30] MEDS: INSULIN SLIDING SCALE (NOVOLOG) 1 VIAL SQ SCH ×2 (06:26→17:51)
[2016-03-30] MEDS: LACTOBACILLUS ACIDOPHILUS 1 EACH TAB (FP) PO SCH (11:06)
[2016-03-30] MEDS: amLODIPine BESYLATE 10 MG TABLET (FP) GT SCH (11:06)
[2016-03-30] MEDS: LISINOPRIL 20 MG TABLET (FP) GT SCH (11:06)
[2016-03-30] MEDS: METOPROLOL TARTRATE 50 MG TABLET (FP) GT SCH ×2 (11:06→22:17)
[2016-03-30] MEDS: PANTOPRAZOLE SOD 40 MG SUSPENSION PACKET GT SCH (11:06)
[2016-03-30] MEDS: AMINO ACIDS/PROTEIN HYDROLYS SUGAR-FREE 30 ML PACKET PO SCH (11:07)
[2016-03-30] MEDS: MULTIVITAMINS THERAPEUTIC GT SCH (11:08)
--- NOTE | 2016-03-30 16:51 | PN ---
Physical Exam: SUBJECTIVE: Patient seen and examined. Eyes open but not communicating well. Do not follow simple command. On the Vent without any significant distress OBJECTIVE:Afebrile, Vitals are stable, no evident distress noted. Tolerating vent well and have PEG tube feeding Vital Signs - 24 hr 03/29/16 03/29/16 03/30/16 21:00 22:00 07:11 Temperature 97.8 F Pulse Rate 88 79 Respiratory 22 22 22 Rate Blood Pressure 150/91 150/96 O2 Sat by Pulse 99 Oximetry (%) 03/30/16 03/30/16 03/30/16 11:00 11:02 11:05 Temperature Pulse Rate 77 84 Respiratory 24 Rate Blood Pressure 153/92 O2 Sat by Pulse 100 97 Oximetry (%) 03/30/16 14:10 Temperature 97.8 F Pulse Rate 87 Respiratory 24 Rate Blood Pressure O2 Sat by Pulse Oximetry (%) GENERAL: The patient is awake, in no acute distress.On the Vent HEAD: Normal with no signs of trauma. EYES: PERRL, extraocular movements intact, sclera anicteric, conjunctiva clear. No ptosis. ENT: Ears normal, nares patent, oropharynx clear without exudates, moist mucous membranes. NECK: Trachea midline, full range of motion, supple. Midline Tracheostomy LUNGS: Breath sounds equal, clear to auscultation bilaterally, scattered ronchi , no accessory muscle use. HEART: Regular rate and rhythm, S1, S2 without murmur, rub or gallop. ABDOMEN: Soft, nontender, nondistended, normoactive bowel sounds, Peg tube in place, no rebound, no hepatosplenomegaly, no masses. EXTREMITIES: 2+ pulses, warm, well-perfused, no edema. NEUROLOGICAL: Difficult to evaluate PSYCH: Normal mood, normal affect. SKIN: multiple decubiti ulcers Laboratory Results - last 24 hr 03/29/16 03/30/16 17:30 06:24 POC Glucometer 137 89 Active Medications Generic Name Dose Route Start Last Admin Trade Name Freq PRN Reason Stop Dose Admin Acetaminophen 650 mg 12/29/15 10:43 03/02/16 05:07 Tylenol Oral Solution - GT 650 mg Q6H PRN Administration FEVER Amino Acids 30 ml 03/01/16 10:00 03/30/16 11:07 Prostat Sugar-Free Packet - PO 30 ml DAILY KWAKU Administration Amlodipine Besylate 10 mg 12/30/15 10:00 03/30/16 11:06 Norvasc - GT 10 mg DAILY KWAKU Administration Guaifenesin 10 ml 12/29/15 10:43 03/17/16 21:49 Robitussin Dm - PO 10 ml Q6H PRN Administration COUGH Ibuprofen 200 mg 12/29/15 10:43 03/17/16 21:47 Motrin Oral Suspension - PO 200 mg Q6H PRN Administration FEVER Insulin Aspart 1 vial 01/28/16 16:30 03/30/16 06:26 Novolog Vial Sliding Scale - SQ Not Given BIDI [facility] Protocol Insulin Detemir 28 units 12/29/15 22:00 03/29/16 22:04 Levemir Vial SQ 28 units HS KWAKU Administration Lactobacillus Acidophilus 1 tab 12/30/15 10:00 03/30/16 11:06 Bacid - PO 1 tab DAILY KWAKU Administration Lisinopril 40 mg 12/30/15 10:00 03/30/16 11:06 Prinivil - GT 40 mg DAILY KWAKU Administration Metoprolol Tartrate 150 mg 12/29/15 22:00 03/30/16 11:06 Lopressor - GT 150 mg BID KWAKU Administration Metoprolol Tartrate 5 mg 12/29/15 10:43 Lopressor Injection - IVPB Q6H PRN HYPERTENSION Multivitamins 5 ml 12/30/15 10:00 03/30/16 11:08 Thera-Plus - GT 5 ml DAILY KWAKU Administration Pantoprazole Sodium 40 mg 12/30/15 10:00 03/30/16 11:06 Protonix Packets For Oral Suspension - GT 40 mg DAILY KWAKU Administration ASSESSMENT/PLAN: VDRF: Continue the ventilator support, Pulmonary toiletting, and breathing treatments Anoxic Encephalopathy: Unchanged Leukocytosis, resolved - monitor for fevers Bilateral DVTS -s/p IVC filter Respiratory failure secondary to anoxic brain injury -Cont trach collar -Albuterol neb PRN Hypertension -Continue Lisinopril/Metoprolol/Amlodipine Multiple pressure ulcers - wound care - turn and position hypernatremia - likely due to dehydration - resolved Elevated LFTS - repeat LFTs to monitor IDDM -Levemir 28 units HS -Novolog sliding scale coverage -fingersticks F/E/N: - PEG tube - Tube feeds: Vital 1.5 @60ml/hr Prophylaxis: - SCDs bilaterally CODE STATUS: DNR Visit Type - Emergency Visit Emergency Visit: Yes ED Registration Date: 06/27/15 Care time: The patient presented to the Emergency Department on the above date and was hospitalized for further evaluation of their emergent condition. - New Patient This patient is new to me today: Yes Date on this admission: 03/30/16 - Critical Care Critical Care patient: No
[2016-03-30] MEDS: INSULIN DETEMIR 100 UNITS/ML MDV SQ SCH (22:15)
[2016-03-31] MEDS: INSULIN SLIDING SCALE (NOVOLOG) 1 VIAL SQ SCH ×2 (06:53→18:00)
--- NOTE | 2016-03-31 10:28 | PN ---
Physical Exam: SUBJECTIVE: Patient seen and examined. Condition is unchanged. Tolerating theTrach mask and PEG tube feeding.No new issue at this point OBJECTIVE:Non verbal and not following command, Does not seems like in any pain. Patient has stage 3 decubiti ulcer and wound care is following Vital Signs - 24 hr 03/30/16 03/30/16 03/30/16 11:00 11:02 11:05 Temperature Pulse Rate 77 84 Respiratory 24 Rate Blood Pressure 153/92 O2 Sat by Pulse 100 97 Oximetry (%) 03/30/16 03/30/16 03/30/16 14:10 18:04 21:00 Temperature 97.8 F 98 F Pulse Rate 87 72 Respiratory 24 22 Rate Blood Pressure 145/82 O2 Sat by Pulse 97 Oximetry (%) 03/30/16 22:00 Temperature 98.4 F Pulse Rate 86 Respiratory 24 Rate Blood Pressure 147/83 O2 Sat by Pulse Oximetry (%) GENERAL: The patient is awake, in no acute distress. HEAD: Normal with no signs of trauma. EYES: PERRL, extraocular movements intact, sclera anicteric, conjunctiva clear. No ptosis. ENT: Ears normal, nares patent, oropharynx clear without exudates, moist mucous membranes. NECK: Trachea midline, S/p Tracheostomy and on trach mask LUNGS: Breath sounds equal,Scattered ronchi more on L side as compared to right side, no wheezes, no crackles, no accessory muscle use. HEART: Regular rate and rhythm, S1, S2 without murmur, rub or gallop. ABDOMEN: Soft, nontender, nondistended, normoactive bowel sounds, no guarding, no rebound, no hepatosplenomegaly, no masses.PEG tube in place EXTREMITIES: 2+ pulses, warm, no edema. NEUROLOGICAL: Difficult to evaluate at this point secondary to anoxic encephalopathy PSYCH: unable to determine SKIN: Warm, dry, no rashes or lesions noted Laboratory Results - last 24 hr 03/30/16 03/31/16 17:49 06:52 POC Glucometer 163 98 Active Medications Generic Name Dose Route Start Last Admin Trade Name Freq PRN Reason Stop Dose Admin Acetaminophen 650 mg 12/29/15 10:43 03/02/16 05:07 Tylenol Oral Solution - GT 650 mg Q6H PRN Administration FEVER Amino Acids 30 ml 03/01/16 10:00 03/30/16 11:07 Prostat Sugar-Free Packet - PO 30 ml DAILY KWAKU Administration Amlodipine Besylate 10 mg 12/30/15 10:00 03/30/16 11:06 Norvasc - GT 10 mg DAILY KWAKU Administration Guaifenesin 10 ml 12/29/15 10:43 03/17/16 21:49 Robitussin Dm - PO 10 ml Q6H PRN Administration COUGH Ibuprofen 200 mg 12/29/15 10:43 03/17/16 21:47 Motrin Oral Suspension - PO 200 mg Q6H PRN Administration FEVER Insulin Aspart 1 vial 01/28/16 16:30 03/31/16 06:53 Novolog Vial Sliding Scale - SQ Not Given BIDI [facility] Protocol Insulin Detemir 28 units 12/29/15 22:00 03/30/16 22:15 Levemir Vial SQ 28 units HS KWAKU Administration Lactobacillus Acidophilus 1 tab 12/30/15 10:00 03/30/16 11:06 Bacid - PO 1 tab DAILY KWAKU Administration Lisinopril 40 mg 12/30/15 10:00 03/30/16 11:06 Prinivil - GT 40 mg DAILY KWAKU Administration Metoprolol Tartrate 150 mg 12/29/15 22:00 03/30/16 22:17 Lopressor - GT 150 mg BID KWAKU Administration Metoprolol Tartrate 5 mg 12/29/15 10:43 Lopressor Injection - IVPB Q6H PRN HYPERTENSION Multivitamins 5 ml 12/30/15 10:00 03/30/16 11:08 Thera-Plus - GT 5 ml DAILY [facility]WAK[facility] Administration Pantoprazole Sodium 40 mg 12/30/15 10:00 03/30/16 11:06 Protonix Packets For Oral Suspension - GT 40 mg DAILY [facility]AK[facility] Administration ASSESSMENT/PLAN: Respiratory failure S/P Tracheostomy.. Now tolerating trach mask. Continue the breathing treatment and frequent pulmonary toileting Decubiti Ulcer.. wound care following the patient. Keep albumin optimal and add zinc Nutrition.. Peg tube feeding DM.. Continue the levemir and SSI HTN.. controlled with lisinopril and B Adelfo and Norvasc consult PT for passive ROM H/O Bilateral DVT s/p IVC filter Abnormal LFT ..Monitor Continue the supportive care Visit Type - Emergency Visit Emergency Visit: Yes ED Registration Date: 06/27/15 Care time: The patient presented to the Emergency Department on the above date and was hospitalized for further evaluation of their emergent condition. - New Patient This patient is new to me today: No - Critical Care Critical Care patient: No
[2016-03-31] MEDS: LACTOBACILLUS ACIDOPHILUS 1 EACH TAB (FP) PO SCH (10:55)
[2016-03-31] MEDS: METOPROLOL TARTRATE 50 MG TABLET (FP) GT SCH ×2 (10:56→22:49)
[2016-03-31] MEDS: amLODIPine BESYLATE 10 MG TABLET (FP) GT SCH (10:56)
[2016-03-31] MEDS: AMINO ACIDS/PROTEIN HYDROLYS SUGAR-FREE 30 ML PACKET PO SCH (10:56)
[2016-03-31] MEDS: LISINOPRIL 20 MG TABLET (FP) GT SCH (10:56)
[2016-03-31] MEDS: MULTIVITAMINS THERAPEUTIC GT SCH (10:57)
[2016-03-31] MEDS: PANTOPRAZOLE SOD 40 MG SUSPENSION PACKET GT SCH (10:58)
[2016-03-31] MEDS: INSULIN DETEMIR 100 UNITS/ML MDV SQ SCH (22:48)
[2016-03-31] MEDS: ZINC SULFATE 220 MG CAPSULE (FP) PO SCH (22:49)
[2016-04-01] MEDS: INSULIN SLIDING SCALE (NOVOLOG) 1 VIAL SQ SCH ×2 (06:59→17:30)
[2016-04-01 09:01] LABS: MCHC 32.9 g/dl (32.0-35.9); MEAN CELL VOLUME 85.2 fl (80-96); MEAN PLT VOLUME 9.2 fl (7.5-11.1); PLATELET COUNT 170 K/MM3 (134-434); RDW 17.2 % (11.9-15.9); WHITE BLOOD COUNT 6.1 K/mm3 (4.0-10.0)
[2016-04-01] MEDS: LISINOPRIL 20 MG TABLET (FP) GT SCH (11:23)
[2016-04-01] MEDS: PANTOPRAZOLE SOD 40 MG SUSPENSION PACKET GT SCH (11:23)
[2016-04-01] MEDS: LACTOBACILLUS ACIDOPHILUS 1 EACH TAB (FP) PO SCH (11:24)
[2016-04-01] MEDS: ZINC SULFATE 220 MG CAPSULE (FP) PO SCH ×2 (11:24→21:48)
[2016-04-01] MEDS: METOPROLOL TARTRATE 50 MG TABLET (FP) GT SCH ×2 (11:24→21:47)
[2016-04-01] MEDS: AMINO ACIDS/PROTEIN HYDROLYS SUGAR-FREE 30 ML PACKET PO SCH (11:25)
[2016-04-01] MEDS: amLODIPine BESYLATE 10 MG TABLET (FP) GT SCH (11:25)
[2016-04-01] MEDS: MULTIVITAMINS THERAPEUTIC GT SCH (11:26)
[2016-04-01 11:28] LABS: ALBUMIN 3.3 g/dl (3.4-5.0); ALK PHOS 123 U/L (45-117); ANION GAP 5 (8-16); BILIRUBIN,TOTAL 0.4 mg/dL (0.2-1.0); CO2 33 mmol/L (21-32); CREATININE 0.8 mg/dL (0.7-1.3); GLUCOSE,RANDOM 107 mg/dL (74-106); MAGNESIUM 2.3 mg/dL (1.8-2.4); PHOSPHOROUS 3.4 mg/dL (2.5-4.9); SGOT/AST 35 U/L (15-37); SGPT/ALT 88 U/L (12-78); TOT PROT 7.9 g/dl (6.4-8.2)
--- NOTE | 2016-04-01 13:04 | PN ---
Physical Exam: SUBJECTIVE: Patient seen and examined. Condition Unchanged OBJECTIVE: No evident distress Vital Signs - 24 hr 03/31/16 03/31/16 04/01/16 14:02 19:01 06:00 Temperature 99.8 F H 99.3 F 98.2 F Pulse Rate 75 82 78 Respiratory 22 22 20 Rate Blood Pressure 144/76 136/74 150/89 O2 Sat by Pulse Oximetry (%) 04/01/16 04/01/16 10:00 11:31 Temperature 98.7 F Pulse Rate 82 90 Respiratory 20 Rate Blood Pressure 148/93 O2 Sat by Pulse 98 95 Oximetry (%) GENERAL: The patient is awake, in no acute distress. HEAD: Normal with no signs of trauma. EYES: PERRL, extraocular movements intact, sclera anicteric, conjunctiva clear. No ptosis. ENT: Ears normal, nares patent, oropharynx clear without exudates, moist mucous membranes. NECK: Trachea midline, S/p Tracheostomy and on trach mask LUNGS: Breath sounds equal,Scattered ronchi more on L side as compared to right side, no wheezes, no crackles, no accessory muscle use. HEART: Regular rate and rhythm, S1, S2 without murmur, rub or gallop. ABDOMEN: Soft, nontender, nondistended, normoactive bowel sounds, no guarding, no rebound, no hepatosplenomegaly, no masses.PEG tube in place EXTREMITIES: 2+ pulses, warm, no edema. NEUROLOGICAL: Difficult to evaluate at this point secondary to anoxic encephalopathy PSYCH: unable to determine SKIN: Warm, dry, no rashes or lesions noted Laboratory Results - last 24 hr 03/31/16 04/01/16 04/01/16 17:25 06:06 07:30 WBC 6.1 RBC 3.60 L Hgb 10.1 L Hct 30.7 L MCV 85.2 MCHC 32.9 RDW 17.2 H Plt Count 170 MPV 9.2 Sodium Potassium Chloride Carbon Dioxide Anion Gap BUN Creatinine Creat Clearance w eGFR POC Glucometer 156 126 Random Glucose Calcium Phosphorus Magnesium Total Bilirubin AST ALT Alkaline Phosphatase Total Protein Albumin 04/01/16 07:30 WBC RBC Hgb Hct MCV MCHC RDW Plt Count MPV Sodium 140 Potassium 3.7 Chloride 102 Carbon Dioxide 33 H Anion Gap 5 L BUN 25 H Creatinine 0.8 Creat Clearance w eGFR > 60 POC Glucometer Random Glucose 107 H Calcium 10.0 Phosphorus 3.4 Magnesium 2.3 Total Bilirubin 0.4 D AST 35 D ALT 88 H Alkaline Phosphatase 123 H Total Protein 7.9 Albumin 3.3 L Active Medications Generic Name Dose Route Start Last Admin Trade Name Freq PRN Reason Stop Dose Admin Acetaminophen 650 mg 12/29/15 10:43 03/02/16 05:07 Tylenol Oral Solution - GT 650 mg Q6H PRN Administration FEVER Amino Acids 30 ml 03/01/16 10:00 04/01/16 11:25 Prostat Sugar-Free Packet - PO 30 ml DAILY KWAKU Administration Amlodipine Besylate 10 mg 12/30/15 10:00 04/01/16 11:25 Norvasc - GT 10 mg DAILY KWAKU Administration Guaifenesin 10 ml 12/29/15 10:43 03/17/16 21:49 Robitussin Dm - PO 10 ml Q6H PRN Administration COUGH Ibuprofen 200 mg 12/29/15 10:43 03/17/16 21:47 Motrin Oral Suspension - PO 200 mg Q6H PRN Administration FEVER Insulin Aspart 1 vial 01/28/16 16:30 04/01/16 06:59 Novolog Vial Sliding Scale - SQ Not Given BIDI [facility] Protocol Insulin Detemir 28 units 12/29/15 22:00 03/31/16 22:48 Levemir Vial SQ 28 units HS KWAKU Administration Lactobacillus Acidophilus 1 tab 12/30/15 10:00 04/01/16 11:24 Bacid - PO 1 tab DAILY KWAKU Administration Lisinopril 40 mg 12/30/15 10:00 04/01/16 11:23 Prinivil - GT 40 mg DAILY KWAKU Administration Metoprolol Tartrate 150 mg 12/29/15 22:00 04/01/16 11:24 Lopressor - GT 150 mg BID KWAKU Administration Metoprolol Tartrate 5 mg 12/29/15 10:43 Lopressor Injection - IVPB Q6H PRN HYPERTENSION Multivitamins 5 ml 12/30/15 10:00 04/01/16 11:26 Thera-Plus - GT 5 ml DAILY KWAKU Administration Pantoprazole Sodium 40 mg 12/30/15 10:00 04/01/16 11:23 Protonix Packets For Oral Suspension - GT 40 mg DAILY KWAKU Administration Zinc Sulfate 220 mg 03/31/16 22:04/01/16 11:24 Orazinc - PO 220 mg BID KWAKU Administration ASSESSMENT/PLAN: Respiratory failure S/P Tracheostomy.. Now tolerating trach mask. Continue the breathing treatment and frequent pulmonary toileting Decubiti Ulcer.. wound care following the patient. Keep albumin optimal and add zinc Nutrition.. Peg tube feeding DM.. Continue the levemir and SSI HTN.. controlled with lisinopril and B Adelfo and Norvasc consult PT for passive ROM H/O Bilateral DVT s/p IVC filter Abnormal LFT ..Monitor Continue the supportive care Visit Type - Emergency Visit Emergency Visit: Yes ED Registration Date: 06/27/15 Care time: The patient presented to the Emergency Department on the above date and was hospitalized for further evaluation of their emergent condition. - New Patient This patient is new to me today: No - Critical Care Critical Care patient: No
[2016-04-01] MEDS: INSULIN DETEMIR 100 UNITS/ML MDV SQ SCH (21:46)
[2016-04-02] MEDS: INSULIN SLIDING SCALE (NOVOLOG) 1 VIAL SQ SCH ×2 (06:02→18:04)
[2016-04-02] MEDS: ZINC SULFATE 220 MG CAPSULE (FP) PO SCH ×2 (11:29→21:58)
[2016-04-02] MEDS: PANTOPRAZOLE SOD 40 MG SUSPENSION PACKET GT SCH (11:29)
[2016-04-02] MEDS: LISINOPRIL 20 MG TABLET (FP) GT SCH (11:29)
[2016-04-02] MEDS: LACTOBACILLUS ACIDOPHILUS 1 EACH TAB (FP) PO SCH (11:29)
[2016-04-02] MEDS: METOPROLOL TARTRATE 50 MG TABLET (FP) GT SCH ×2 (11:29→21:58)
[2016-04-02] MEDS: MULTIVITAMINS THERAPEUTIC GT SCH (11:30)
[2016-04-02] MEDS: amLODIPine BESYLATE 10 MG TABLET (FP) GT SCH (11:30)
[2016-04-02] MEDS: AMINO ACIDS/PROTEIN HYDROLYS SUGAR-FREE 30 ML PACKET PO SCH (11:30)
--- NOTE | 2016-04-02 13:43 | PN ---
Physical Exam: SUBJECTIVE: Patient seen and examined. Condition unchanged. Bringing up clear tenacious phlegm. Not following commands OBJECTIVE: No new concerns Vital Signs - 24 hr 04/01/16 04/01/16 04/01/16 15:35 17:35 20:37 Temperature 98.8 F 98.5 F 98.8 F Pulse Rate 53 L 78 85 Respiratory 20 20 20 Rate Blood Pressure 127/76 151/88 165/97 O2 Sat by Pulse Oximetry (%) 04/01/16 04/02/16 04/02/16 21:00 10:00 11:15 Temperature Pulse Rate 74 72 Respiratory 20 Rate Blood Pressure 141/78 O2 Sat by Pulse 99 99 95 Oximetry (%) 04/02/16 12:00 Temperature 99.4 F Pulse Rate Respiratory Rate Blood Pressure O2 Sat by Pulse Oximetry (%) GENERAL: The patient is awake, in no acute distress. HEAD: Normal with no signs of trauma. EYES: PERRL, extraocular movements intact, sclera anicteric, conjunctiva clear. No ptosis. ENT: Ears normal, nares patent, oropharynx clear without exudates, moist mucous membranes. NECK: Trachea midline, S/p Tracheostomy and on trach mask LUNGS: Breath sounds equal,Scattered ronchi more on L side as compared to right side, no wheezes, no crackles, no accessory muscle use. HEART: Regular rate and rhythm, S1, S2 without murmur, rub or gallop. ABDOMEN: Soft, nontender, nondistended, normoactive bowel sounds, no guarding, no rebound, no hepatosplenomegaly, no masses.PEG tube in place EXTREMITIES: 2+ pulses, warm, no edema. NEUROLOGICAL: Difficult to evaluate at this point secondary to anoxic encephalopathy PSYCH: unable to determine SKIN: Warm, dry, no rashes or lesions noted Laboratory Results - last 24 hr 04/01/16 04/02/16 17:15 06:00 POC Glucometer 133 91 Active Medications Generic Name Dose Route Start Last Admin Trade Name Freq PRN Reason Stop Dose Admin Acetaminophen 650 mg 12/29/15 10:43 03/02/16 05:07 Tylenol Oral Solution - GT 650 mg Q6H PRN Administration FEVER Amino Acids 30 ml 03/01/16 10:00 04/02/16 11:30 Prostat Sugar-Free Packet - PO 30 ml DAILY KWAKU Administration Amlodipine Besylate 10 mg 12/30/15 10:00 04/02/16 11:30 Norvasc - GT 10 mg DAILY KWAKU Administration Guaifenesin 10 ml 12/29/15 10:43 03/17/16 21:49 Robitussin Dm - PO 10 ml Q6H PRN Administration COUGH Ibuprofen 200 mg 12/29/15 10:43 03/17/16 21:47 Motrin Oral Suspension - PO 200 mg Q6H PRN Administration FEVER Insulin Aspart 1 vial 01/28/16 16:30 04/02/16 06:02 Novolog Vial Sliding Scale - SQ Not Given BIDI [facility] Protocol Insulin Detemir 28 units 12/29/15 22:00 04/01/16 21:46 Levemir Vial SQ 28 units HS KWAKU Administration Lactobacillus Acidophilus 1 tab 12/30/15 10:00 04/02/16 11:29 Bacid - PO 1 tab DAILY KWAKU Administration Lisinopril 40 mg 12/30/15 10:00 04/02/16 11:29 Prinivil - GT 40 mg DAILY KWAKU Administration Metoprolol Tartrate 150 mg 12/29/15 22:00 04/02/16 11:29 Lopressor - GT 150 mg BID KWAKU Administration Metoprolol Tartrate 5 mg 12/29/15 10:43 Lopressor Injection - IVPB Q6H PRN HYPERTENSION Multivitamins 5 ml 12/30/15 10:00 04/02/16 11:30 Thera-Plus - GT 5 ml DAILY KWAKU Administration Pantoprazole Sodium 40 mg 12/30/15 10:00 04/02/16 11:29 Protonix Packets For Oral Suspension - GT 40 mg DAILY KWAKU Administration Zinc Sulfate 220 mg 03/31/16 22:00 04/02/16 11:29 Orazinc - PO 220 mg BID KWAKU Administration ASSESSMENT/PLAN: Respiratory failure S/P Tracheostomy.. Now tolerating trach mask. Continue the breathing treatment and frequent pulmonary toileting Decubiti Ulcer.. wound care following the patient. Keep albumin optimal and add zinc Nutrition.. Peg tube feeding DM.. Continue the levemir and SSI HTN.. controlled with lisinopril and B Adelfo and Norvasc consult PT for passive ROM H/O Bilateral DVT s/p IVC filter Abnormal LFT ..Monitor Continue the supportive care Large Finger nails.. need to be trimmed Check a chest XR Visit Type - Emergency Visit Emergency Visit: Yes ED Registration Date: 06/27/15 Care time: The patient presented to the Emergency Department on the above date and was hospitalized for further evaluation of their emergent condition. - New Patient This patient is new to me today: No - Critical Care Critical Care patient: No
[2016-04-02] MEDS: INSULIN DETEMIR 100 UNITS/ML MDV SQ SCH (21:56)
[2016-04-03] MEDS: INSULIN SLIDING SCALE (NOVOLOG) 1 VIAL SQ SCH ×2 (06:15→17:14)
[2016-04-03] MEDS: LISINOPRIL 20 MG TABLET (FP) GT SCH (10:12)
[2016-04-03] MEDS: amLODIPine BESYLATE 10 MG TABLET (FP) GT SCH (10:12)
[2016-04-03] MEDS: PANTOPRAZOLE SOD 40 MG SUSPENSION PACKET GT SCH (10:13)
[2016-04-03] MEDS: MULTIVITAMINS THERAPEUTIC GT SCH (10:13)
[2016-04-03] MEDS: AMINO ACIDS/PROTEIN HYDROLYS SUGAR-FREE 30 ML PACKET PO SCH (10:13)
[2016-04-03] MEDS: METOPROLOL TARTRATE 50 MG TABLET (FP) GT SCH ×2 (10:14→21:38)
[2016-04-03] MEDS: LACTOBACILLUS ACIDOPHILUS 1 EACH TAB (FP) PO SCH (10:14)
[2016-04-03] MEDS: ZINC SULFATE 220 MG CAPSULE (FP) PO SCH ×2 (10:15→21:38)
--- NOTE | 2016-04-03 12:39 | PN ---
Physical Exam: SUBJECTIVE: Patient seen and examined. No change in the condition. CXR showed Basilar atelectasis. Still have some sputum production( Clear) OBJECTIVE: Not awake, Do not following Vital Signs - 24 hr 04/02/16 04/02/16 04/02/16 15:42 16:40 20:00 Temperature 99.6 F 98.2 F 98.1 F Pulse Rate 80 73 81 Respiratory 20 20 20 Rate Blood Pressure 147/90 142/89 144/94 O2 Sat by Pulse Oximetry (%) 04/02/16 04/03/16 04/03/16 21:00 09:59 10:35 Temperature 98.2 F Pulse Rate 76 82 Respiratory 20 Rate Blood Pressure 145/85 O2 Sat by Pulse 98 97 Oximetry (%) GENERAL: The patient is awake, in no acute distress. HEAD: Normal with no signs of trauma. EYES: PERRL, extraocular movements intact, sclera anicteric, conjunctiva clear. No ptosis. ENT: Ears normal, nares patent, oropharynx clear without exudates, moist mucous membranes. NECK: Trachea midline, S/p Tracheostomy and on trach mask LUNGS: Breath sounds equal,Scattered ronchi more on L side as compared to right side, no wheezes, no crackles, no accessory muscle use. HEART: Regular rate and rhythm, S1, S2 without murmur, rub or gallop. ABDOMEN: Soft, nontender, nondistended, normoactive bowel sounds, no guarding, no rebound, no hepatosplenomegaly, no masses.PEG tube in place EXTREMITIES: 2+ pulses, warm, no edema. NEUROLOGICAL: Difficult to evaluate at this point secondary to anoxic encephalopathy PSYCH: unable to determine SKIN: Warm, dry, no rashes or lesions noted Laboratory Results - last 24 hr 04/02/16 04/03/16 17:59 06:12 POC Glucometer 125 127 Active Medications Generic Name Dose Route Start Last Admin Trade Name Freq PRN Reason Stop Dose Admin Acetaminophen 650 mg 12/29/15 10:43 03/02/16 05:07 Tylenol Oral Solution - GT 650 mg Q6H PRN Administration FEVER Amino Acids 30 ml 03/01/16 10:00 04/03/16 10:13 Prostat Sugar-Free Packet - PO 30 ml DAILY KWAKU Administration Amlodipine Besylate 10 mg 12/30/15 10:00 04/03/16 10:12 Norvasc - GT 10 mg DAILY KWAKU Administration Guaifenesin 10 ml 12/29/15 10:43 03/17/16 21:49 Robitussin Dm - PO 10 ml Q6H PRN Administration COUGH Ibuprofen 200 mg 12/29/15 10:43 03/17/16 21:47 Motrin Oral Suspension - PO 200 mg Q6H PRN Administration FEVER Insulin Aspart 1 vial 01/28/16 16:30 04/03/16 06:15 Novolog Vial Sliding Scale - SQ Not Given BIDI [facility] Protocol Insulin Detemir 28 units 12/29/15 22:00 04/02/16 21:56 Levemir Vial SQ 28 units HS KWAKU Administration Lactobacillus Acidophilus 1 tab 12/30/15 10:00 04/03/16 10:14 Bacid - PO 1 tab DAILY KWAKU Administration Lisinopril 40 mg 12/30/15 10:00 04/03/16 10:12 Prinivil - GT 40 mg DAILY KWAKU Administration Metoprolol Tartrate 150 mg 12/29/15 22:00 04/03/16 10:14 Lopressor - GT 150 mg BID KWAKU Administration Metoprolol Tartrate 5 mg 12/29/15 10:43 Lopressor Injection - IVPB Q6H PRN HYPERTENSION Multivitamins 5 ml 12/30/15 10:00 04/03/16 10:13 Thera-Plus - GT 5 ml DAILY KWAKU Administration Pantoprazole Sodium 40 mg 12/30/15 10:00 04/03/16 10:13 Protonix Packets For Oral Suspension - GT 40 mg DAILY KWAKU Administration Zinc Sulfate 220 mg 03/31/16 22:00 04/03/16 10:15 Orazinc - PO 220 mg BID KWAKU Administration ASSESSMENT/PLAN: Respiratory failure S/P Tracheostomy.. Now tolerating trach mask. Continue the breathing treatment and frequent pulmonary toileting Decubiti Ulcer.. wound care following the patient. Keep albumin optimal and add zinc Nutrition.. Peg tube feeding DM.. Continue the levemir and SSI HTN.. controlled with lisinopril and B Adelfo and Norvasc consult PT for passive ROM H/O Bilateral DVT s/p IVC filter Abnormal LFT ..Monitor Continue the supportive care Large Finger nails.. need to be trimmed Check a chest XR... CXR showed Bibasilar atelectasis Visit Type - Emergency Visit Emergency Visit: Yes ED Registration Date: 06/27/15 Care time: The patient presented to the Emergency Department on the above date and was hospitalized for further evaluation of their emergent condition. - New Patient This patient is new to me today: No - Critical Care Critical Care patient: No
[2016-04-03] MEDS: INSULIN DETEMIR 100 UNITS/ML MDV SQ SCH (21:37)
[2016-04-03] MEDS: IBUPROFEN 100 MG/5 ML UNIT DOSE CUPS PO PRN (21:38)
[2016-04-04] MEDS: INSULIN SLIDING SCALE (NOVOLOG) 1 VIAL SQ SCH ×2 (06:33→18:04)
[2016-04-04] MEDS: LACTOBACILLUS ACIDOPHILUS 1 EACH TAB (FP) PO SCH (11:33)
[2016-04-04] MEDS: ZINC SULFATE 220 MG CAPSULE (FP) PO SCH ×2 (11:34→23:04)
[2016-04-04] MEDS: amLODIPine BESYLATE 10 MG TABLET (FP) GT SCH (11:34)
[2016-04-04] MEDS: LISINOPRIL 20 MG TABLET (FP) GT SCH (11:34)
[2016-04-04] MEDS: AMINO ACIDS/PROTEIN HYDROLYS SUGAR-FREE 30 ML PACKET PO SCH (11:34)
[2016-04-04] MEDS: METOPROLOL TARTRATE 50 MG TABLET (FP) GT SCH ×2 (11:34→23:04)
[2016-04-04] MEDS: PANTOPRAZOLE SOD 40 MG SUSPENSION PACKET GT SCH (11:34)
[2016-04-04] MEDS: MULTIVITAMINS THERAPEUTIC GT SCH (11:43)
--- NOTE | 2016-04-04 12:30 | PN ---
Physical Exam: SUBJECTIVE: Patient seen and examined. No change in the condition. Tolerating the trach mask. No new issue oer nursing staff OBJECTIVE: No evident distress Vital Signs - 24 hr 04/03/16 04/03/16 04/03/16 14:00 16:30 21:00 Temperature 99.1 F 96.8 F L Pulse Rate 77 77 91 H Respiratory 20 20 20 Rate Blood Pressure 154/94 148/78 146/77 O2 Sat by Pulse 99 Oximetry (%) 04/04/16 04/04/16 04/04/16 05:45 06:00 10:28 Temperature 99.4 F 99.4 F Pulse Rate 89 76 Respiratory 22 Rate Blood Pressure 144/76 O2 Sat by Pulse 99 Oximetry (%) GENERAL: The patient is awake, in no acute distress. HEAD: Normal with no signs of trauma. EYES: PERRL, extraocular movements intact, sclera anicteric, conjunctiva clear. No ptosis. ENT: Ears normal, nares patent, oropharynx clear without exudates, moist mucous membranes. NECK: Trachea midline, S/p Tracheostomy and on trach mask LUNGS: Breath sounds equal,Scattered ronchi more on L side as compared to right side, no wheezes, no crackles, no accessory muscle use. HEART: Regular rate and rhythm, S1, S2 without murmur, rub or gallop. ABDOMEN: Soft, nontender, nondistended, normoactive bowel sounds, no guarding, no rebound, no hepatosplenomegaly, no masses.PEG tube in place EXTREMITIES: 2+ pulses, warm, no edema. NEUROLOGICAL: Difficult to evaluate at this point secondary to anoxic encephalopathy PSYCH: unable to determine SKIN: Warm, dry, no rashes or lesions noted Laboratory Results - last 24 hr 04/03/16 04/04/16 16:45 06:07 POC Glucometer 142 145 Active Medications Generic Name Dose Route Start Last Admin Trade Name Freq PRN Reason Stop Dose Admin Acetaminophen 650 mg 12/29/15 10:43 03/02/16 05:07 Tylenol Oral Solution - GT 650 mg Q6H PRN Administration FEVER Amino Acids 30 ml 03/01/16 10:00 04/04/16 11:34 Prostat Sugar-Free Packet - PO 30 ml DAILY KWAKU Administration Amlodipine Besylate 10 mg 12/30/15 10:00 04/04/16 11:34 Norvasc - GT 10 mg DAILY KWAKU Administration Guaifenesin 10 ml 12/29/15 10:43 03/17/16 21:49 Robitussin Dm - PO 10 ml Q6H PRN Administration COUGH Ibuprofen 200 mg 12/29/15 10:43 04/03/16 21:38 Motrin Oral Suspension - PO 200 mg Q6H PRN Administration FEVER Insulin Aspart 1 vial 01/28/16 16:30 04/04/16 06:33 Novolog Vial Sliding Scale - SQ Not Given BIDI [facility] Protocol Insulin Detemir 28 units 12/29/15 22:00 04/03/16 21:37 Levemir Vial SQ 28 units HS KWAKU Administration Lactobacillus Acidophilus 1 tab 12/30/15 10:00 04/04/16 11:33 Bacid - PO 1 tab DAILY KWAKU Administration Lisinopril 40 mg 12/30/15 10:00 04/04/16 11:34 Prinivil - GT 40 mg DAILY KWAKU Administration Metoprolol Tartrate 150 mg 12/29/15 22:00 04/04/16 11:34 Lopressor - GT 150 mg BID KWAKU Administration Metoprolol Tartrate 5 mg 12/29/15 10:43 Lopressor Injection - IVPB Q6H PRN HYPERTENSION Multivitamins 5 ml 12/30/15 10:00 04/04/16 11:43 Thera-Plus - GT 5 ml DAILY KWAKU Administration Pantoprazole Sodium 40 mg 12/30/15 10:00 04/04/16 11:34 Protonix Packets For Oral Suspension - GT 40 mg DAILY KWAKU Administration Zinc Sulfate 220 mg 03/31/16 22:00 04/04/16 11:34 Orazinc - PO 220 mg BID KWAKU Administration ASSESSMENT/PLAN: Respiratory failure S/P Tracheostomy.. Now tolerating trach mask. Continue the breathing treatment and frequent pulmonary toileting Decubiti Ulcer.. wound care following the patient. Keep albumin optimal and add zinc Nutrition.. Peg tube feeding DM.. Continue the levemir and SSI HTN.. controlled with lisinopril and B Adelfo and Norvasc consult PT for passive ROM H/O Bilateral DVT s/p IVC filter Abnormal LFT ..Monitor Continue the supportive care Large Finger nails.. need to be trimmed Check a chest XR Visit Type - Emergency Visit Emergency Visit: Yes ED Registration Date: 06/27/15 Care time: The patient presented to the Emergency Department on the above date and was hospitalized for further evaluation of their emergent condition. - New Patient This patient is new to me today: No - Critical Care Critical Care patient: No
[2016-04-04] MEDS: INSULIN DETEMIR 100 UNITS/ML MDV SQ SCH (23:03)
[2016-04-05] MEDS: INSULIN SLIDING SCALE (NOVOLOG) 1 VIAL SQ SCH ×2 (06:57→16:53)
[2016-04-05 08:55] LABS: ALBUMIN 3.8 g/dl (3.4-5.0); ALK PHOS 132 U/L (45-117); ANION GAP 12 (8-16); BILIRUBIN,TOTAL 0.4 mg/dL (0.2-1.0); CO2 29 mmol/L (21-32); CREATININE 0.9 mg/dL (0.7-1.3); GLUCOSE,RANDOM 176 mg/dL (74-106); MAGNESIUM 2.3 mg/dL (1.8-2.4); PHOSPHOROUS 3.7 mg/dL (2.5-4.9); SGOT/AST 65 U/L (15-37); SGPT/ALT 127 U/L (12-78); TOT PROT 8.9 g/dl (6.4-8.2)
[2016-04-05] MEDS: METOPROLOL TARTRATE 50 MG TABLET (FP) GT SCH ×2 (10:50→21:56)
[2016-04-05] MEDS: LACTOBACILLUS ACIDOPHILUS 1 EACH TAB (FP) PO SCH (10:50)
[2016-04-05] MEDS: ZINC SULFATE 220 MG CAPSULE (FP) PO SCH ×2 (10:51→21:56)
[2016-04-05] MEDS: LISINOPRIL 20 MG TABLET (FP) GT SCH (10:51)
[2016-04-05] MEDS: MULTIVITAMINS THERAPEUTIC GT SCH (10:51)
[2016-04-05] MEDS: AMINO ACIDS/PROTEIN HYDROLYS SUGAR-FREE 30 ML PACKET PO SCH (10:51)
[2016-04-05] MEDS: PANTOPRAZOLE SOD 40 MG SUSPENSION PACKET GT SCH (10:51)
[2016-04-05] MEDS: amLODIPine BESYLATE 10 MG TABLET (FP) GT SCH (10:51)
--- NOTE | 2016-04-05 17:54 | PN ---
Physical Exam: SUBJECTIVE: Patient seen and examined Conditioned unchanged OBJECTIVE: No new issue Vital Signs - 24 hr 04/04/16 04/04/16 04/04/16 18:00 21:00 23:03 Temperature 98.9 F 98.6 F Pulse Rate 83 92 H Respiratory 18 18 18 Rate Blood Pressure 142/87 145/81 O2 Sat by Pulse 99 Oximetry (%) 04/05/16 04/05/16 04/05/16 07:15 09:00 09:45 Temperature 98.5 F Pulse Rate 87 66 Respiratory 20 Rate Blood Pressure 111/75 O2 Sat by Pulse 98 98 Oximetry (%) 04/05/16 04/05/16 10:00 14:00 Temperature 98.1 F 98.5 F Pulse Rate 98 H 69 Respiratory 20 20 Rate Blood Pressure 137/94 128/69 O2 Sat by Pulse Oximetry (%) GENERAL: The patient is awake, in no acute distress. HEAD: Normal with no signs of trauma. EYES: PERRL, extraocular movements intact, sclera anicteric, conjunctiva clear. No ptosis. ENT: Ears normal, nares patent, oropharynx clear without exudates, moist mucous membranes. NECK: Trachea midline, S/p Tracheostomy and on trach mask LUNGS: Breath sounds equal,Scattered ronchi more on L side as compared to right side, no wheezes, no crackles, no accessory muscle use. HEART: Regular rate and rhythm, S1, S2 without murmur, rub or gallop. ABDOMEN: Soft, nontender, nondistended, normoactive bowel sounds, no guarding, no rebound, no hepatosplenomegaly, no masses.PEG tube in place EXTREMITIES: 2+ pulses, warm, no edema. NEUROLOGICAL: Difficult to evaluate at this point secondary to anoxic encephalopathy PSYCH: unable to determine SKIN: Warm, dry, no rashes or lesions noted Laboratory Results - last 24 hr 04/04/16 04/04/16 04/05/16 17:55 23:01 06:00 Sodium 142 Potassium 3.7 Chloride 101 Carbon Dioxide 29 Anion Gap 12 BUN 26 H Creatinine 0.9 Creat Clearance w eGFR > 60 POC Glucometer 146 147 Random Glucose 176 H D Calcium 10.0 Phosphorus 3.7 Magnesium 2.3 Total Bilirubin 0.4 AST 65 H D ALT 127 H D Alkaline Phosphatase 132 H Total Protein 8.9 H Albumin 3.8 04/05/16 04/05/16 06:54 16:42 Sodium Potassium Chloride Carbon Dioxide Anion Gap BUN Creatinine Creat Clearance w eGFR POC Glucometer 193 163 Random Glucose Calcium Phosphorus Magnesium Total Bilirubin AST ALT Alkaline Phosphatase Total Protein Albumin Active Medications Generic Name Dose Route Start Last Admin Trade Name Freq PRN Reason Stop Dose Admin Acetaminophen 650 mg 12/29/15 10:43 03/02/16 05:07 Tylenol Oral Solution - GT 650 mg Q6H PRN Administration FEVER Amino Acids 30 ml 03/01/16 10:00 04/05/16 10:51 Prostat Sugar-Free Packet - PO 30 ml DAILY KWAKU Administration Amlodipine Besylate 10 mg 12/30/15 10:00 04/05/16 10:51 Norvasc - GT 10 mg DAILY KWAKU Administration Guaifenesin 10 ml 12/29/15 10:43 03/17/16 21:49 Robitussin Dm - PO 10 ml Q6H PRN Administration COUGH Ibuprofen 200 mg 12/29/15 10:43 04/03/16 21:38 Motrin Oral Suspension - PO 200 mg Q6H PRN Administration FEVER Insulin Aspart 1 vial 01/28/16 16:30 04/05/16 16:53 Novolog Vial Sliding Scale - SQ 2 units BIDI KWAKU Administration Protocol Insulin Detemir 28 units 12/29/15 22:00 04/04/16 23:03 Levemir Vial SQ 28 units HS KWAKU Administration Lactobacillus Acidophilus 1 tab 12/30/15 10:00 04/05/16 10:50 Bacid - PO 1 tab DAILY KWAKU Administration Lisinopril 40 mg 12/30/15 10:00 04/05/16 10:51 Prinivil - GT 40 mg DAILY KWAKU Administration Metoprolol Tartrate 150 mg 12/29/15 22:00 04/05/16 10:50 Lopressor - GT 150 mg BID KWAKU Administration Metoprolol Tartrate 5 mg 12/29/15 10:43 Lopressor Injection - IVPB Q6H PRN HYPERTENSION Multivitamins 5 ml 12/30/15 10:00 04/05/16 10:51 Thera-Plus - GT 5 ml DAILY KWAKU Administration Pantoprazole Sodium 40 mg 12/30/15 10:00 04/05/16 10:51 Protonix Packets For Oral Suspension - GT 40 mg DAILY KWAKU Administration Zinc Sulfate 220 mg 03/31/16 22:00 04/05/16 10:51 Orazinc - PO 220 mg BID KWAKU Administration ASSESSMENT/PLAN: Respiratory failure S/P Tracheostomy.. Now tolerating trach mask. Continue the breathing treatment and frequent pulmonary toileting Decubiti Ulcer.. wound care following the patient. Keep albumin optimal and add zinc Nutrition.. Peg tube feeding DM.. Continue the levemir and SSI HTN.. controlled with lisinopril and B Adelfo and Norvasc consult PT for passive ROM H/O Bilateral DVT s/p IVC filter Abnormal LFT ..Monitor Continue the supportive care Large Finger nails.. need to be trimmed Check a chest XR... CXR showed Bibasilar a Visit Type - Emergency Visit Emergency Visit: Yes ED Registration Date: 06/27/15 Care time: The patient presented to the Emergency Department on the above date and was hospitalized for further evaluation of their emergent condition. - New Patient This patient is new to me today: No - Critical Care Critical Care patient: No
[2016-04-05] MEDS: INSULIN DETEMIR 100 UNITS/ML MDV SQ SCH (21:56)
[2016-04-06] MEDS: INSULIN SLIDING SCALE (NOVOLOG) 1 VIAL SQ SCH ×2 (06:23→16:58)
[2016-04-06] MEDS: LISINOPRIL 20 MG TABLET (FP) GT SCH (11:06)
[2016-04-06] MEDS: ZINC SULFATE 220 MG CAPSULE (FP) PO SCH ×2 (11:06→23:57)
[2016-04-06] MEDS: LACTOBACILLUS ACIDOPHILUS 1 EACH TAB (FP) PO SCH (11:07)
[2016-04-06] MEDS: METOPROLOL TARTRATE 50 MG TABLET (FP) GT SCH ×2 (11:07→23:57)
[2016-04-06] MEDS: MULTIVITAMINS THERAPEUTIC GT SCH (11:07)
[2016-04-06] MEDS: PANTOPRAZOLE SOD 40 MG SUSPENSION PACKET GT SCH (11:07)
[2016-04-06] MEDS: amLODIPine BESYLATE 10 MG TABLET (FP) GT SCH (11:07)
[2016-04-06] MEDS: AMINO ACIDS/PROTEIN HYDROLYS SUGAR-FREE 30 ML PACKET PO SCH (11:07)
--- NOTE | 2016-04-06 13:31 | PN ---
Physical Exam: SUBJECTIVE: Patient seen and examined no new changes OBJECTIVE: Unable to communicate. Not in distress Vital Signs - 24 hr 04/05/16 04/05/16 04/05/16 14:00 18:46 19:21 Temperature 98.5 F 97.8 F Pulse Rate 69 87 Respiratory 20 19 Rate Blood Pressure 128/69 149/91 O2 Sat by Pulse Oximetry (%) 04/05/16 04/05/16 04/06/16 21:00 21:55 06:00 Temperature 97.9 F 97.9 F Pulse Rate 82 74 Respiratory 20 20 Rate Blood Pressure 145/91 138/76 O2 Sat by Pulse 99 Oximetry (%) 04/06/16 09:20 Temperature Pulse Rate 93 H Respiratory Rate Blood Pressure O2 Sat by Pulse 97 Oximetry (%) GENERAL: In the bed with tracheal mask. No respiratory difficulty HEAD: Normal with no signs of trauma. EYES: PERRL, moves eyes spontaneously, sclera anicteric, conjunctiva clear. No ptosis. ENT: Ears normal, nares patent, oropharynx clear without exudates, moist mucous membranes. NECK: Trachea midline, full range of motion, supple. LUNGS: Bilateral breath sound with throughout crackles. No accessory muscle use. HEART: Regular rate and rhythm, S1, S2 without murmur, rub or gallop. ABDOMEN: Soft, nontender, nondistended, normoactive bowel sounds, no guarding, no rebound, no hepatosplenomegaly, no masses. EXTREMITIES: 2+ pulses, warm, no edema. NEUROLOGICAL: Do not follow command. PSYCH: Unable to evaluate SKIN: Warm, dry, Decubiti ulcer Laboratory Results - last 24 hr 04/05/16 04/05/16 04/06/16 16:42 21:53 06:22 POC Glucometer 163 145 131 Active Medications Generic Name Dose Route Start Last Admin Trade Name Freq PRN Reason Stop Dose Admin Acetaminophen 650 mg 12/29/15 10:43 03/02/16 05:07 Tylenol Oral Solution - GT 650 mg Q6H PRN Administration FEVER Amino Acids 30 ml 03/01/16 10:00 04/06/16 11:07 Prostat Sugar-Free Packet - PO 30 ml DAILY [facility] Administration Amlodipine Besylate 10 mg 12/30/15 10:00 04/06/16 11:07 Norvasc - GT 10 mg DAILY [facility] Administration Guaifenesin 10 ml 12/29/15 10:43 03/17/16 21:49 Robitussin Dm - PO 10 ml Q6H PRN Administration COUGH Ibuprofen 200 mg 12/29/15 10:43 04/03/16 21:38 Motrin Oral Suspension - PO 200 mg Q6H PRN Administration FEVER Insulin Aspart 1 vial 01/28/16 16:30 04/06/16 06:23 Novolog Vial Sliding Scale - SQ Not Given BIDI [facility] Protocol Insulin Detemir 28 units 12/29/15 22:00 04/05/16 21:56 Levemir Vial SQ 28 units HS K[facility]AKU Administration Lactobacillus Acidophilus 1 tab 12/30/15 10:00 04/06/16 11:07 Bacid - PO 1 tab DAILY [facility] Administration Lisinopril 40 mg 12/30/15 10:00 04/06/16 11:06 Prinivil - GT 40 mg DAILY [facility] Administration Metoprolol Tartrate 150 mg 12/29/15 22:00 04/06/16 11:07 Lopressor - GT 150 mg BID [facility] Administration Metoprolol Tartrate 5 mg 12/29/15 10:43 Lopressor Injection - IVPB Q6H PRN HYPERTENSION Multivitamins 5 ml 12/30/15 10:00 04/06/16 11:07 Thera-Plus - GT 5 ml DAILY K[facility]U Administration Pantoprazole Sodium 40 mg 12/30/15 10:00 04/06/16 11:07 Protonix Packets For Oral Suspension - GT 40 mg DAILY [facility] Administration Zinc Sulfate 220 mg 03/31/16 22:00 04/06/16 11:06 Orazinc - PO 220 mg BID K[facility]U Administration ASSESSMENT/PLAN: Respiratory failure S/P Tracheostomy.. Now tolerating trach mask. Continue the breathing treatment and frequent pulmonary toileting Decubiti Ulcer.. wound care following the patient. Keep albumin optimal and add zinc Nutrition.. Peg tube feeding DM.. Continue the levemir and SSI HTN.. controlled with lisinopril and B Adelfo and Norvasc consult PT for passive ROM H/O Bilateral DVT s/p IVC filter Abnormal LFT ..Monitor Continue the supportive care Large Finger nails.. need to be trimmed Check a chest XR... CXR showed Bibasilar a Visit Type - Emergency Visit Emergency Visit: Yes ED Registration Date: 06/27/15 Care time: The patient presented to the Emergency Department on the above date and was hospitalized for further evaluation of their emergent condition. - New Patient This patient is new to me today: No - Critical Care Critical Care patient: No
[2016-04-06] MEDS: INSULIN DETEMIR 100 UNITS/ML MDV SQ SCH (23:57)
[2016-04-07] MEDS: INSULIN SLIDING SCALE (NOVOLOG) 1 VIAL SQ SCH ×2 (06:26→17:33)
[2016-04-07] MEDS: LACTOBACILLUS ACIDOPHILUS 1 EACH TAB (FP) PO SCH (09:16)
[2016-04-07] MEDS: PANTOPRAZOLE SOD 40 MG SUSPENSION PACKET GT SCH (09:17)
[2016-04-07] MEDS: METOPROLOL TARTRATE 50 MG TABLET (FP) GT SCH ×2 (09:17→22:10)
[2016-04-07] MEDS: LISINOPRIL 20 MG TABLET (FP) GT SCH (09:18)
[2016-04-07] MEDS: amLODIPine BESYLATE 10 MG TABLET (FP) GT SCH (09:18)
[2016-04-07] MEDS: ZINC SULFATE 220 MG CAPSULE (FP) PO SCH ×2 (09:18→22:10)
[2016-04-07] MEDS: AMINO ACIDS/PROTEIN HYDROLYS SUGAR-FREE 30 ML PACKET PO SCH (09:19)
[2016-04-07] MEDS: MULTIVITAMINS THERAPEUTIC GT SCH (09:21)
--- NOTE | 2016-04-07 12:50 | PN ---
Physical Exam: SUBJECTIVE: Patient seen and examined No change in the status. Tolerating trach mask OBJECTIVE: looks comfortable Vital Signs - 24 hr 04/06/16 04/06/16 04/06/16 14:00 18:30 21:00 Temperature 98.7 F 98.2 F Pulse Rate 78 78 Respiratory 20 20 20 Rate Blood Pressure 149/87 141/84 O2 Sat by Pulse 99 Oximetry (%) 04/06/16 04/06/16 04/07/16 22:00 23:35 05:05 Temperature 98.7 F 99.9 F H Pulse Rate 86 76 89 Respiratory 20 20 20 Rate Blood Pressure 149/91 142/82 152/98 O2 Sat by Pulse 98 Oximetry (%) 04/07/16 09:30 Temperature Pulse Rate 78 Respiratory Rate Blood Pressure O2 Sat by Pulse 98 Oximetry (%) GENERAL: In the bed with tracheal mask. No respiratory difficulty HEAD: Normal with no signs of trauma. EYES: PERRL, moves eyes spontaneously, sclera anicteric, conjunctiva clear. No ptosis. ENT: Ears normal, nares patent, oropharynx clear without exudates, moist mucous membranes. NECK: Trachea midline, full range of motion, supple. LUNGS: Bilateral breath sound with throughout crackles. No accessory muscle use. HEART: Regular rate and rhythm, S1, S2 without murmur, rub or gallop. ABDOMEN: Soft, nontender, nondistended, normoactive bowel sounds, no guarding, no rebound, no hepatosplenomegaly, no masses. EXTREMITIES: 2+ pulses, warm, no edema. NEUROLOGICAL: Do not follow command. PSYCH: Unable to evaluate SKIN: Warm, dry, Decubiti ulcer Laboratory Results - last 24 hr 04/06/16 04/07/16 04/07/16 16:47 00:14 05:57 POC Glucometer 138 144 110 Active Medications Generic Name Dose Route Start Last Admin Trade Name Freq PRN Reason Stop Dose Admin Acetaminophen 650 mg 12/29/15 10:43 03/02/16 05:07 Tylenol Oral Solution - GT 650 mg Q6H PRN Administration FEVER Amino Acids 30 ml 03/01/16 10:00 04/07/16 09:19 Prostat Sugar-Free Packet - PO 30 ml DAILY [facility] Administration Amlodipine Besylate 10 mg 12/30/15 10:00 04/07/16 09:18 Norvasc - GT 10 mg DAILY [facility] Administration Guaifenesin 10 ml 12/29/15 10:43 03/17/16 21:49 Robitussin Dm - PO 10 ml Q6H PRN Administration COUGH Ibuprofen 200 mg 12/29/15 10:43 04/03/16 21:38 Motrin Oral Suspension - PO 200 mg Q6H PRN Administration FEVER Insulin Aspart 1 vial 01/28/16 16:30 04/07/16 06:26 Novolog Vial Sliding Scale - SQ Not Given BIDI [facility] Protocol Insulin Detemir 28 units 12/29/15 22:00 04/06/16 23:57 Levemir Vial SQ 28 units HS K[facility]AKU Administration Lactobacillus Acidophilus 1 tab 12/30/15 10:00 04/07/16 09:16 Bacid - PO 1 tab DAILY [facility] Administration Lisinopril 40 mg 12/30/15 10:00 04/07/16 09:18 Prinivil - GT 40 mg DAILY [facility] Administration Metoprolol Tartrate 150 mg 12/29/15 22:00 04/07/16 09:17 Lopressor - GT 150 mg BID [facility] Administration Metoprolol Tartrate 5 mg 12/29/15 10:43 Lopressor Injection - IVPB Q6H PRN HYPERTENSION Multivitamins 5 ml 12/30/15 10:00 04/07/16 09:21 Thera-Plus - GT 5 ml DAILY [facility] Administration Pantoprazole Sodium 40 mg 12/30/15 10:00 04/07/16 09:17 Protonix Packets For Oral Suspension - GT 40 mg DAILY [facility] Administration Zinc Sulfate 220 mg 03/31/16 22:00 04/07/16 09:18 Orazinc - PO 220 mg BID [facility] Administration ASSESSMENT/PLAN: Respiratory failure S/P Tracheostomy.. Now tolerating trach mask. Continue the breathing treatment and frequent pulmonary toileting Decubiti Ulcer.. wound care following the patient. Keep albumin optimal and add zinc Nutrition.. Peg tube feeding DM.. Continue the levemir and SSI HTN.. controlled with lisinopril and B Adelfo and Norvasc consult PT for passive ROM H/O Bilateral DVT s/p IVC filter Abnormal LFT ..Monitor Continue the supportive care Large Finger nails.. need to be trimmed Check a chest XR... CXR showed Bibasilar a Visit Type - Emergency Visit Emergency Visit: Yes ED Registration Date: 06/27/15 Care time: The patient presented to the Emergency Department on the above date and was hospitalized for further evaluation of their emergent condition. - New Patient This patient is new to me today: No - Critical Care Critical Care patient: No
[2016-04-07] MEDS: INSULIN DETEMIR 100 UNITS/ML MDV SQ SCH (22:10)
[2016-04-08] MEDS: INSULIN SLIDING SCALE (NOVOLOG) 1 VIAL SQ SCH ×2 (06:44→16:54)
[2016-04-08] MEDS: METOPROLOL TARTRATE 50 MG TABLET (FP) GT SCH ×2 (10:47→23:07)
[2016-04-08] MEDS: PANTOPRAZOLE SOD 40 MG SUSPENSION PACKET GT SCH (10:48)
[2016-04-08] MEDS: LISINOPRIL 20 MG TABLET (FP) GT SCH (10:48)
[2016-04-08] MEDS: LACTOBACILLUS ACIDOPHILUS 1 EACH TAB (FP) PO SCH (10:48)
[2016-04-08] MEDS: ZINC SULFATE 220 MG CAPSULE (FP) PO SCH ×2 (10:48→23:08)
[2016-04-08] MEDS: amLODIPine BESYLATE 10 MG TABLET (FP) GT SCH (10:49)
[2016-04-08] MEDS: MULTIVITAMINS THERAPEUTIC GT SCH (10:49)
[2016-04-08] MEDS: AMINO ACIDS/PROTEIN HYDROLYS SUGAR-FREE 30 ML PACKET PO SCH (10:49)
--- NOTE | 2016-04-08 13:15 | PN ---
Progress Note, Physician - Current Medication List Current Medications: Active Medications Acetaminophen (Tylenol Oral Solution -) 650 mg GT Q6H PRN PRN Reason: FEVER Last Admin: 03/02/16 05:07 Dose: 650 mg Amino Acids (Prostat Sugar-Free Packet -) 30 ml PO DAILY [facility] Last Admin: 04/08/16 10:49 Dose: 30 ml Amlodipine Besylate (Norvasc -) 10 mg GT DAILY [facility] Last Admin: 04/08/16 10:49 Dose: 10 mg Guaifenesin (Robitussin Dm -) 10 ml PO Q6H PRN PRN Reason: COUGH Last Admin: 03/17/16 21:49 Dose: 10 ml Ibuprofen (Motrin Oral Suspension -) 200 mg PO Q6H PRN PRN Reason: FEVER Last Admin: 04/03/16 21:38 Dose: 200 mg Insulin Aspart (Novolog Vial Sliding Scale -) 1 vial SQ BIDI [facility] PRN Reason: Protocol Last Admin: 04/08/16 06:44 Dose: Not Given Insulin Detemir (Levemir Vial) 28 units SQ HS [facility] Last Admin: 04/07/16 22:10 Dose: 28 units Lactobacillus Acidophilus (Bacid -) 1 tab PO DAILY [facility] Last Admin: 04/08/16 10:48 Dose: 1 tab Lisinopril (Prinivil -) 40 mg GT DAILY [facility] Last Admin: 04/08/16 10:48 Dose: 40 mg Metoprolol Tartrate (Lopressor -) 150 mg GT BID [facility] Last Admin: 04/08/16 10:47 Dose: 150 mg Metoprolol Tartrate (Lopressor Injection -) 5 mg IVPB Q6H PRN PRN Reason: HYPERTENSION Multivitamins (Thera-Plus -) 5 ml GT DAILY [facility] Last Admin: 04/08/16 10:49 Dose: 5 ml Pantoprazole Sodium (Protonix Packets For Oral Suspension -) 40 mg GT DAILY [facility] Last Admin: 04/08/16 10:48 Dose: 40 mg Zinc Sulfate (Orazinc -) 220 mg PO BID [facility] Last Admin: 04/08/16 10:48 Dose: 220 mg - Objective Vital Signs: Vital Signs Temperature 97.8 F 04/08/16 11:45 Pulse Rate 102 H 04/08/16 11:04 Respiratory Rate 24 04/08/16 10:41 Blood Pressure 142/84 04/08/16 10:41 O2 Sat by Pulse Oximetry (%) 96 04/08/16 11:04 Constitutional: Yes: Well Nourished, No Distress, Calm Eyes: Yes: WNL, Conjunctiva Clear HENT: Yes: WNL, Atraumatic, Normocephalic Neck: Yes: Other (Trach collar in place) Cardiovascular: Yes: WNL, Regular Rate and Rhythm Respiratory: Yes: WNL, Regular, CTA Bilaterally Gastrointestinal: Yes: WNL, Normal Bowel Sounds Musculoskeletal: Yes: WNL Extremities: Yes: WNL Edema: No Integumentary: Yes: WNL Neurological: Yes: WNL, Alert, Oriented ...Motor Strength: WNL Psychiatric: Yes: WNL Labs: CBC, BMP 04/01/16 07:30 04/05/16 06:00 INR, PTT INR 1.29 (0.80-1.00) H 12/26/15 08:45 Assessment/Plan 75 year old male admitted on 06/26 with GI bleed, course complicated by acute CVA and respiratory failure s/p intubation-->tracheostomy and PEG. 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
[2016-04-08] MEDS: ENOXAPARIN NA (PORCINE) 40 MG/0.4 ML DISP.SYRIN SQ SCH (16:54)
[2016-04-08] MEDS: INSULIN DETEMIR 100 UNITS/ML MDV SQ SCH (23:07)
[2016-04-09] MEDS: INSULIN SLIDING SCALE (NOVOLOG) 1 VIAL SQ SCH ×2 (06:06→18:16)
[2016-04-09 08:09] LABS: WHITE BLOOD COUNT 7.3 K/mm3 (4.0-10.0)
[2016-04-09 08:10] LABS: MCH 27.5 pg (25.7-33.7); MCHC 31.9 g/dl (32.0-35.9); MEAN CELL VOLUME 86.3 fl (80-96); PLATELET COUNT 208 K/MM3 (134-434); RDW 16.7 % (11.9-15.9)
[2016-04-09 08:11] LABS: MEAN PLT VOLUME 8.9 fl (7.5-11.1)
[2016-04-09 08:40] LABS: ALBUMIN 3.6 g/dl (3.4-5.0); ALK PHOS 139 U/L (45-117); ANION GAP 9 (8-16); BILIRUBIN,TOTAL 0.3 mg/dL (0.2-1.0); CO2 30 mmol/L (21-32); CREATININE 0.9 mg/dL (0.7-1.3); GLUCOSE,RANDOM 112 mg/dL (74-106); SGOT/AST 47 U/L (15-37); SGPT/ALT 112 U/L (12-78); TOT PROT 8.5 g/dl (6.4-8.2)
[2016-04-09] MEDS: PANTOPRAZOLE SOD 40 MG SUSPENSION PACKET GT SCH (12:05)
[2016-04-09] MEDS: ZINC SULFATE 220 MG CAPSULE (FP) PO SCH ×2 (12:05→22:49)
[2016-04-09] MEDS: amLODIPine BESYLATE 10 MG TABLET (FP) GT SCH (12:06)
[2016-04-09] MEDS: METOPROLOL TARTRATE 50 MG TABLET (FP) GT SCH ×2 (12:06→22:49)
[2016-04-09] MEDS: LISINOPRIL 20 MG TABLET (FP) GT SCH (12:06)
[2016-04-09] MEDS: ENOXAPARIN NA (PORCINE) 40 MG/0.4 ML DISP.SYRIN SQ SCH (12:07)
[2016-04-09] MEDS: LACTOBACILLUS ACIDOPHILUS 1 EACH TAB (FP) PO SCH (12:07)
[2016-04-09] MEDS: MULTIVITAMINS THERAPEUTIC GT SCH (12:07)
[2016-04-09] MEDS: AMINO ACIDS/PROTEIN HYDROLYS SUGAR-FREE 30 ML PACKET PO SCH (12:07)
--- NOTE | 2016-04-09 17:01 | PN ---
Progress Note (short form) - Note Progress Note: Patient is lying in bed with no acute distress. Vital Signs Temperature 97.2 F L 04/09/16 14:34 Pulse Rate 84 04/09/16 14:34 Respiratory Rate 22 04/09/16 14:34 Blood Pressure 135/83 04/09/16 10:00 O2 Sat by Pulse Oximetry (%) 98 04/09/16 10:33 SKIN: Warm, dry, normal turgor, no rashes or lesions noted GENERAL: The patient has periods of somnolence, periods of wakefulness. EYES: Pupils equal, round and reactive to light, sclera anicteric, conjunctiva clear. ENT: Ears normal, Moist mucous membranes. positive for Trach collar, thin. NECK: Normal range of motion, supple without lymphadenopathy, no JVD, or masses. LUNGS: Coarse breath sounds. No wheezes, and no crackles. HEART: Regular rate and rhythm, normal S1 and S2 without murmur, rub or gallop. ABDOMEN: Soft, nontender, normoactive bowel sounds. positive for G-tube EXTREMITIES: 2+ pulses, warm, well-perfused, no edema. NEUROLOGICAL: Unable to assess. SKIN: Wounds not visualized today. CBCD WBC 7.3 K/mm3 (4.0-10.0) 04/09/16 07:00 RBC 4.01 M/mm3 (4.00-5.60) 04/09/16 07:00 Hgb 11.0 GM/dL (11.7-16.9) L 04/09/16 07:00 Hct 34.6 % (35.4-49) L 04/09/16 07:00 MCV 86.3 fl (80-96) 04/09/16 07:00 MCHC 31.9 g/dl (32.0-35.9) L 04/09/16 07:00 RDW 16.7 % (11.9-15.9) H 04/09/16 07:00 Plt Count 208 K/MM3 (134-434) D 04/09/16 07:00 MPV 8.9 fl (7.5-11.1) 04/09/16 07:00 CMP Sodium 142 mmol/L (136-145) 04/09/16 07:00 Potassium 3.8 mmol/L (3.5-5.1) 04/09/16 07:00 Chloride 103 mmol/L (98-107) 04/09/16 07:00 Carbon Dioxide 30 mmol/L (21-32) 04/09/16 07:00 Anion Gap 9 (8-16) 04/09/16 07:00 BUN 25 mg/dL (7-18) H 04/09/16 07:00 Creatinine 0.9 mg/dL (0.7-1.3) 04/09/16 07:00 Creat Clearance w eGFR > 60 (>60) 04/09/16 07:00 Random Glucose 112 mg/dL (74-106) H D 04/09/16 07:00 Calcium 10.0 mg/dL (8.5-10.1) 04/09/16 07:00 Total Bilirubin 0.3 mg/dL (0.2-1.0) D 04/09/16 07:00 AST 47 U/L (15-37) H D 04/09/16 07:00 ALT 112 U/L (12-78) H 04/09/16 07:00 Alkaline Phosphatase 139 U/L (45-117) H 04/09/16 07:00 Total Protein 8.5 g/dl (6.4-8.2) H 04/09/16 07:00 Albumin 3.6 g/dl (3.4-5.0) 04/09/16 07:00 CARDIAC ENZYMES Creatine Kinase 62 IU/L (38-174) 06/28/15 09:35 Troponin I 0.07 ng/ml (0.03-0.5) D 07/09/15 05:00 Current Medications Generic Name Dose Route Start Last Admin Trade Name Freq PRN Reason Stop Dose Admin Acetaminophen 650 mg 12/29/15 10:43 03/02/16 05:07 Tylenol Oral Solution - GT 650 mg Q6H PRN Administration FEVER Amino Acids 30 ml 03/01/16 10:00 04/09/16 12:07 Prostat Sugar-Free Packet - PO 30 ml DAILY [facility] Administration Amlodipine Besylate 10 mg 12/30/15 10:00 04/09/16 12:06 Norvasc - GT 10 mg DAILY [facility] Administration Guaifenesin 10 ml 12/29/15 10:43 03/17/16 21:49 Robitussin Dm - PO 10 ml Q6H PRN Administration COUGH Ibuprofen 200 mg 12/29/15 10:43 04/03/16 21:38 Motrin Oral Suspension - PO 200 mg Q6H PRN Administration FEVER Insulin Aspart 1 vial 01/28/16 16:30 04/09/16 06:06 Novolog Vial Sliding Scale - SQ Not Given BIDI [facility] Protocol Insulin Detemir 28 units 12/29/15 22:00 04/08/16 23:07 Levemir Vial SQ 28 units HS [facility]U Administration Lactobacillus Acidophilus 1 tab 12/30/15 10:00 04/09/16 12:07 Bacid - PO 1 tab DAILY [facility] Administration Lisinopril 40 mg 12/30/15 10:00 04/09/16 12:06 Prinivil - GT 40 mg DAILY [facility] Administration Metoprolol Tartrate 150 mg 12/29/15 22:00 04/09/16 12:06 Lopressor - GT 150 mg BID [facility] Administration Metoprolol Tartrate 5 mg 12/29/15 10:43 Lopressor Injection - IVPB Q6H PRN HYPERTENSION Multivitamins 5 ml 12/30/15 10:00 04/09/16 12:07 Thera-Plus - GT 5 ml DAILY [facility] Administration Pantoprazole Sodium 40 mg 12/30/15 10:00 04/09/16 12:05 Protonix Packets For Oral Suspension - GT 40 mg DAILY [facility] Administration Zinc Sulfate 220 mg 03/31/16 22:00 04/09/16 12:05 Orazinc - PO 220 mg BID [facility] Administration Assessment/Plan: 75 yo M with PMH HTN, DM, inguinal hernia a/w BRBPR and melena with multiple syncopal episodes. Dx with persistent diverticular bleed with R hemicolectomy, course complicated with CVA now in the ICU unresponsive and anoxic brain injury had tracheostomy on 07/23. also s/p PEG placement and iliac artery bleed s /p embolization 09/03/15. received a course of ABx for HCAp in Oct/nov 1- s/p Leukocytosis and fever: resolved 2- b/l DVTS s/p IVC filter; anticoagulation is contraindicated due to severe GI bleed 3- GI bleed: resolved 4- anoxic brain injury 5- s/p Trach 07/23. s/p G-tube placement by IR today 6- DM controlled cont insulin with sliding scale , continue Levemir 7- HTN cont antihypertensive meds ; On Norvasc, Lisinipril and metoprolol continue. 8 dislodged G-tube s/p replacement of Gtube By IR 03/08/2016 9- hypernatremia due to dehydration resolved DVT Px: TEds - wound care ELevate HOB above 60 to avoid aspiration Glucerna 1.5 feeding 40cc/hr ---> goal 60cc/hr h20 is getting 50cc/hr -awaiting placement at [facility] facility
[2016-04-09] MEDS: INSULIN DETEMIR 100 UNITS/ML MDV SQ SCH (22:49)
[2016-04-10] MEDS: INSULIN SLIDING SCALE (NOVOLOG) 1 VIAL SQ SCH ×2 (06:45→17:25)
[2016-04-10] MEDS: LACTOBACILLUS ACIDOPHILUS 1 EACH TAB (FP) PO SCH (10:34)
[2016-04-10] MEDS: ZINC SULFATE 220 MG CAPSULE (FP) PO SCH ×2 (10:34→21:56)
[2016-04-10] MEDS: PANTOPRAZOLE SOD 40 MG SUSPENSION PACKET GT SCH (10:35)
[2016-04-10] MEDS: LISINOPRIL 20 MG TABLET (FP) GT SCH (10:35)
[2016-04-10] MEDS: AMINO ACIDS/PROTEIN HYDROLYS SUGAR-FREE 30 ML PACKET PO SCH (10:35)
[2016-04-10] MEDS: amLODIPine BESYLATE 10 MG TABLET (FP) GT SCH (10:41)
[2016-04-10] MEDS: MULTIVITAMINS THERAPEUTIC GT SCH (10:41)
[2016-04-10] MEDS: METOPROLOL TARTRATE 50 MG TABLET (FP) GT SCH ×2 (10:43→21:56)
--- NOTE | 2016-04-10 18:51 | PN ---
Progress Note (short form) - Note Progress Note: Patient is comfortable with no new changes. Vital Signs Temperature 100.6 F H 04/10/16 14:38 Pulse Rate 72 04/10/16 15:50 Respiratory Rate 20 04/10/16 15:50 Blood Pressure 127/57 04/10/16 15:50 O2 Sat by Pulse Oximetry (%) 96 04/10/16 11:00 SKIN: Warm, dry, normal turgor, no rashes or lesions noted GENERAL: The patient has periods of somnolence, periods of wakefulness. EYES: Pupils equal, round and reactive to light, sclera anicteric, conjunctiva clear. ENT: Ears normal, Moist mucous membranes. positive for Trach collar, thin. NECK: Normal range of motion, supple without lymphadenopathy, no JVD, or masses. LUNGS: Coarse breath sounds. No wheezes, and no crackles. HEART: Regular rate and rhythm, normal S1 and S2 without murmur, rub or gallop. ABDOMEN: Soft, nontender, normoactive bowel sounds. positive for G-tube EXTREMITIES: 2+ pulses, warm, well-perfused, no edema. NEUROLOGICAL: Unable to assess. SKIN: Wounds not visualized today. CBCD WBC 7.3 K/mm3 (4.0-10.0) 04/09/16 07:00 RBC 4.01 M/mm3 (4.00-5.60) 04/09/16 07:00 Hgb 11.0 GM/dL (11.7-16.9) L 04/09/16 07:00 Hct 34.6 % (35.4-49) L 04/09/16 07:00 MCV 86.3 fl (80-96) 04/09/16 07:00 MCHC 31.9 g/dl (32.0-35.9) L 04/09/16 07:00 RDW 16.7 % (11.9-15.9) H 04/09/16 07:00 Plt Count 208 K/MM3 (134-434) D 04/09/16 07:00 MPV 8.9 fl (7.5-11.1) 04/09/16 07:00 CMP Sodium 142 mmol/L (136-145) 04/09/16 07:00 Potassium 3.8 mmol/L (3.5-5.1) 04/09/16 07:00 Chloride 103 mmol/L (98-107) 04/09/16 07:00 Carbon Dioxide 30 mmol/L (21-32) 04/09/16 07:00 Anion Gap 9 (8-16) 04/09/16 07:00 BUN 25 mg/dL (7-18) H 04/09/16 07:00 Creatinine 0.9 mg/dL (0.7-1.3) 04/09/16 07:00 Creat Clearance w eGFR > 60 (>60) 04/09/16 07:00 Random Glucose 112 mg/dL (74-106) H D 04/09/16 07:00 Calcium 10.0 mg/dL (8.5-10.1) 04/09/16 07:00 Total Bilirubin 0.3 mg/dL (0.2-1.0) D 04/09/16 07:00 AST 47 U/L (15-37) H D 04/09/16 07:00 ALT 112 U/L (12-78) H 04/09/16 07:00 Alkaline Phosphatase 139 U/L (45-117) H 04/09/16 07:00 Total Protein 8.5 g/dl (6.4-8.2) H 04/09/16 07:00 Albumin 3.6 g/dl (3.4-5.0) 04/09/16 07:00 CARDIAC ENZYMES Creatine Kinase 62 IU/L (38-174) 06/28/15 09:35 Troponin I 0.07 ng/ml (0.03-0.5) D 07/09/15 05:00 Current Medications Generic Name Dose Route Start Last Admin Trade Name Freq PRN Reason Stop Dose Admin Acetaminophen 650 mg 12/29/15 10:43 03/02/16 05:07 Tylenol Oral Solution - GT 650 mg Q6H PRN Administration FEVER Amino Acids 30 ml 03/01/16 10:00 04/10/16 10:35 Prostat Sugar-Free Packet - PO 30 ml DAILY [facility] Administration Amlodipine Besylate 10 mg 12/30/15 10:00 04/10/16 10:41 Norvasc - GT 10 mg DAILY [facility] Administration Guaifenesin 10 ml 12/29/15 10:43 03/17/16 21:49 Robitussin Dm - PO 10 ml Q6H PRN Administration COUGH Ibuprofen 200 mg 03/02/16 10:43 04/03/16 21:38 Motrin Oral Suspension - PO 200 mg Q6H PRN Administration FEVER Insulin Aspart 1 vial 01/28/16 16:30 04/10/16 17:25 Novolog Vial Sliding Scale - SQ 2 units BIDI [facility] Administration Protocol Insulin Detemir 28 units 12/29/15 22:00 04/09/16 22:49 Levemir Vial SQ 28 units HS [facility] Administration Lactobacillus Acidophilus 1 tab 12/30/15 10:00 04/10/16 10:34 Bacid - PO 1 tab DAILY [facility] Administration Lisinopril 40 mg 12/30/15 10:00 04/10/16 10:35 Prinivil - GT 40 mg DAILY [facility] Administration Metoprolol Tartrate 150 mg 12/29/15 22:00 04/10/16 10:43 Lopressor - GT 150 mg BID [facility] Administration Metoprolol Tartrate 5 mg 12/29/15 10:43 Lopressor Injection - IVPB Q6H PRN HYPERTENSION Multivitamins 5 ml 12/30/15 10:00 04/10/16 10:41 Thera-Plus - GT 5 ml DAILY [facility] Administration Pantoprazole Sodium 40 mg 12/30/15 10:00 04/10/16 10:35 Protonix Packets For Oral Suspension - GT 40 mg DAILY [facility] Administration Zinc Sulfate 220 mg 03/31/16 22:00 04/10/16 10:34 Orazinc - PO 220 mg BID [facility] Administration Medication Instructions Recorded Amino Acids/Protein Hydrolys 30 ml GT DAILY packet 08/09/15 [Prostat Sugar-Free Packet -] Amlodipine Besylate [Norvasc -] 10 mg GT DAILY tablet 08/09/15 Chlorhexidine Gluconate [Peridex -] 15 ml MM BID cup 08/09/15 Insulin (Levemir) [Levemir Flexpen 25 units SQ HS pen 08/09/15 -] Insulin (Novolog) [Novolog Flexpen 3 units SQ Q6HPO pen 08/09/15 -] Insulin Sliding Scale [Novolog 0 units SQ Q6HPO pen 08/09/15 Vial Sliding Scale -] Lisinopril [Prinivil] 20 mg GT DAILY tablet 08/09/15 Metoprolol Tartrate Injection 5 mg IVPB Q6H PRN #0 vial 08/09/15 [Lopressor Injection -] Metoprolol Tartrate [Lopressor -] 100 mg GT BID tablet 08/09/15 Ondansetron Injection [Zofran 4 mg IVPB Q6H PRN #0 vial 08/09/15 Injection] Pantoprazole Suspension [Protonix 40 mg GT DAILY packet 08/09/15 Packets For Oral Suspension -] Vancomycin Oral Solution 125 mg GT Q6HPO ml 08/09/15 Assessment/Plan: 75 yo M with PMH HTN, DM, inguinal hernia a/w BRBPR and melena with multiple syncopal episodes. Dx with persistent diverticular bleed with R hemicolectomy, course complicated with CVA now in the ICU unresponsive and anoxic brain injury had tracheostomy on 07/23. also s/p PEG placement and iliac artery bleed s /p embolization 09/03/15. received a course of ABx for HCAp in Oct/nov no new event 1- s/p Leukocytosis and fever: resolved 2- b/l DVTS s/p IVC filter; anticoagulation is contraindicated due to severe GI bleed 3- GI bleed: resolved 4- anoxic brain injury 5- s/p Trach 07/23. s/p G-tube placement by IR today 6- DM controlled cont insulin with sliding scale , continue Levemir 7- HTN cont antihypertensive meds ; On Norvasc, Lisinipril and metoprolol continue. 8 dislodged G-tube s/p replacement of Gtube By IR 03/08/2016 9- hypernatremia due to dehydration resolved DVT Px: TEds - wound care ELevate HOB above 60 to avoid aspiration Glucerna 1.5 feeding 40cc/hr ---> goal 60cc/hr h20 is getting 50cc/hr -[facility]aiting [facility] -[facility]ing [facility]
[2016-04-10] MEDS: INSULIN DETEMIR 100 UNITS/ML MDV SQ SCH (21:55)
[2016-04-11] MEDS: INSULIN SLIDING SCALE (NOVOLOG) 1 VIAL SQ SCH ×2 (06:20→18:16)
[2016-04-11] MEDS: LISINOPRIL 20 MG TABLET (FP) GT SCH (11:13)
[2016-04-11] MEDS: LACTOBACILLUS ACIDOPHILUS 1 EACH TAB (FP) PO SCH (11:13)
[2016-04-11] MEDS: ZINC SULFATE 220 MG CAPSULE (FP) PO SCH ×2 (11:13→23:02)
[2016-04-11] MEDS: PANTOPRAZOLE SOD 40 MG SUSPENSION PACKET GT SCH (11:14)
[2016-04-11] MEDS: AMINO ACIDS/PROTEIN HYDROLYS SUGAR-FREE 30 ML PACKET PO SCH (11:14)
[2016-04-11] MEDS: amLODIPine BESYLATE 10 MG TABLET (FP) GT SCH (11:14)
[2016-04-11] MEDS: METOPROLOL TARTRATE 50 MG TABLET (FP) GT SCH ×2 (11:14→23:02)
[2016-04-11] MEDS: MULTIVITAMINS THERAPEUTIC GT SCH (11:14)
--- NOTE | 2016-04-11 16:09 | PN ---
Progress Note (short form) - Note Progress Note: Lying in bed comfotable, with no acute distress. Vital Signs Temperature 98.4 F 04/11/16 14:42 Pulse Rate 92 H 04/11/16 14:42 Respiratory Rate 22 04/11/16 14:42 Blood Pressure 138/73 04/11/16 08:58 O2 Sat by Pulse Oximetry (%) 98 04/11/16 09:00 SKIN: Warm, dry, normal turgor, no rashes or lesions noted GENERAL: The patient has periods of somnolence, periods of wakefulness. EYES: Pupils equal, round and reactive to light, sclera anicteric, conjunctiva clear. ENT: Ears normal, Moist mucous membranes. positive for Trach collar, thin. NECK: Normal range of motion, supple without lymphadenopathy, no JVD, or masses. LUNGS: Coarse breath sounds. No wheezes, and no crackles. HEART: Regular rate and rhythm, normal S1 and S2 without murmur, rub or gallop. ABDOMEN: Soft, nontender, normoactive bowel sounds. positive for G-tube EXTREMITIES: 2+ pulses, warm, well-perfused, no edema. NEUROLOGICAL: Unable to assess. SKIN: Wounds not visualized today. CBCD WBC 7.3 K/mm3 (4.0-10.0) 04/09/16 07:00 RBC 4.01 M/mm3 (4.00-5.60) 04/09/16 07:00 Hgb 11.0 GM/dL (11.7-16.9) L 04/09/16 07:00 Hct 34.6 % (35.4-49) L 04/09/16 07:00 MCV 86.3 fl (80-96) 04/09/16 07:00 MCHC 31.9 g/dl (32.0-35.9) L 04/09/16 07:00 RDW 16.7 % (11.9-15.9) H 04/09/16 07:00 Plt Count 208 K/MM3 (134-434) D 04/09/16 07:00 MPV 8.9 fl (7.5-11.1) 04/09/16 07:00 CMP Sodium 142 mmol/L (136-145) 04/09/16 07:00 Potassium 3.8 mmol/L (3.5-5.1) 04/09/16 07:00 Chloride 103 mmol/L (98-107) 04/09/16 07:00 Carbon Dioxide 30 mmol/L (21-32) 04/09/16 07:00 Anion Gap 9 (8-16) 04/09/16 07:00 BUN 25 mg/dL (7-18) H 04/09/16 07:00 Creatinine 0.9 mg/dL (0.7-1.3) 04/09/16 07:00 Creat Clearance w eGFR > 60 (>60) 04/09/16 07:00 Random Glucose 112 mg/dL (74-106) H D 04/09/16 07:00 Calcium 10.0 mg/dL (8.5-10.1) 04/09/16 07:00 Total Bilirubin 0.3 mg/dL (0.2-1.0) D 04/09/16 07:00 AST 47 U/L (15-37) H D 04/09/16 07:00 ALT 112 U/L (12-78) H 04/09/16 07:00 Alkaline Phosphatase 139 U/L (45-117) H 04/09/16 07:00 Total Protein 8.5 g/dl (6.4-8.2) H 04/09/16 07:00 Albumin 3.6 g/dl (3.4-5.0) 04/09/16 07:00 CARDIAC ENZYMES Creatine Kinase 62 IU/L (38-174) 06/28/15 09:35 Troponin I 0.07 ng/ml (0.03-0.5) D 07/09/15 05:00 Current Medications Generic Name Dose Route Start Last Admin Trade Name Freq PRN Reason Stop Dose Admin Acetaminophen 650 mg 12/29/15 10:43 03/02/16 05:07 Tylenol Oral Solution - GT 650 mg Q6H PRN Administration FEVER Amino Acids 30 ml 03/01/16 10:00 04/11/16 11:14 Prostat Sugar-Free Packet - PO 30 ml DAILY KWAKU Administration Amlodipine Besylate 10 mg 12/30/15 10:00 04/11/16 11:14 Norvasc - GT 10 mg DAILY KWAKU Administration Guaifenesin 10 ml 12/29/15 10:43 03/17/16 21:49 Robitussin Dm - PO 10 ml Q6H PRN Administration COUGH Ibuprofen 200 mg 12/29/15 10:43 04/03/16 21:38 Motrin Oral Suspension - PO 200 mg Q6H PRN Administration FEVER Insulin Aspart 1 vial 01/28/16 16:30 04/11/16 06:20 Novolog Vial Sliding Scale - SQ Not Given [facility] Protocol Insulin Detemir 28 units 12/29/15 22:00 04/10/16 21:55 Levemir Vial SQ 28 units HS KWAKU Administration Lactobacillus Acidophilus 1 tab 12/30/15 10:00 04/11/16 11:13 Bacid - PO 1 tab DAILY KWAKU Administration Lisinopril 40 mg 12/30/15 10:00 04/11/16 11:13 Prinivil - GT 40 mg DAILY KWAKU Administration Metoprolol Tartrate 150 mg 12/29/15 22:00 04/11/16 11:14 Lopressor - GT 150 mg BID KWAKU Administration Metoprolol Tartrate 5 mg 12/29/15 10:43 Lopressor Injection - IVPB Q6H PRN HYPERTENSION Multivitamins 5 ml 12/30/15 10:00 04/11/16 11:14 Thera-Plus - GT 5 ml DAILY KWAKU Administration Pantoprazole Sodium 40 mg 12/30/15 10:00 04/11/16 11:14 Protonix Packets For Oral Suspension - GT 40 mg DAILY KWAKU Administration Zinc Sulfate 220 mg 03/31/16 22:00 04/11/16 11:13 Orazinc - PO 220 mg BID KWAKU Administration Medication Instructions Recorded Amino Acids/Protein Hydrolys 30 ml GT DAILY packet 08/09/15 [Prostat Sugar-Free Packet -] Amlodipine Besylate [Norvasc -] 10 mg GT DAILY tablet 08/09/15 Chlorhexidine Gluconate [Peridex -] 15 ml MM BID cup 08/09/15 Insulin (Levemir) [Levemir Flexpen 25 units SQ HS pen 08/09/15 -] Insulin (Novolog) [Novolog Flexpen 3 units SQ Q6HPO pen 08/09/15 -] Insulin Sliding Scale [Novolog 0 units SQ Q6HPO pen 08/09/15 Vial Sliding Scale -] Lisinopril [Prinivil] 20 mg GT DAILY tablet 08/09/15 Metoprolol Tartrate Injection 5 mg IVPB Q6H PRN #0 vial 08/09/15 [Lopressor Injection -] Metoprolol Tartrate [Lopressor -] 100 mg GT BID tablet 08/09/15 Ondansetron Injection [Zofran 4 mg IVPB Q6H PRN #0 vial 08/09/15 Injection] Pantoprazole Suspension [Protonix 40 mg GT DAILY packet 08/09/15 Packets For Oral Suspension -] Vancomycin Oral Solution 125 mg GT Q6HPO ml 08/09/15 Assessment/Plan: 75 yo M with PMH HTN, DM, inguinal hernia a/w BRBPR and melena with multiple syncopal episodes. Dx with persistent diverticular bleed with R hemicolectomy, course complicated with CVA now in the ICU unresponsive and anoxic brain injury had tracheostomy on 07/23. also s/p PEG placement and iliac artery bleed s /p embolization 09/03/15. received a course of ABx for HCAp in Oct/nov # reported soft stool, but its normal due to his tube feeding. 1- s/p Leukocytosis and fever: resolved 2- b/l DVTS s/p IVC filter; anticoagulation is contraindicated due to severe GI bleed 3- GI bleed: resolved 4- anoxic brain injury 5- s/p Trach 07/23. s/p G-tube placement by IR today 6- DM controlled cont insulin with sliding scale , continue Levemir 7- HTN cont antihypertensive meds ; On Norvasc, Lisinipril and metoprolol continue. 8 dislodged G-tube s/p replacement of Gtube By IR 03/08/2016 9- hypernatremia due to dehydration resolved DVT Px: TEds - wound care ELevate HOB above 60 to avoid aspiration Glucerna 1.5 feeding 40cc/hr ---> goal 60cc/hr h20 is getting 50cc/hr -awaiting placement at [facility] facility
[2016-04-11] MEDS: INSULIN DETEMIR 100 UNITS/ML MDV SQ SCH (23:02)
[2016-04-12] MEDS: INSULIN SLIDING SCALE (NOVOLOG) 1 VIAL SQ SCH ×2 (06:58→18:15)
[2016-04-12] MEDS: LACTOBACILLUS ACIDOPHILUS 1 EACH TAB (FP) PO SCH (11:28)
[2016-04-12] MEDS: AMINO ACIDS/PROTEIN HYDROLYS SUGAR-FREE 30 ML PACKET PO SCH (11:29)
[2016-04-12] MEDS: amLODIPine BESYLATE 10 MG TABLET (FP) GT SCH (11:29)
[2016-04-12] MEDS: ZINC SULFATE 220 MG CAPSULE (FP) PO SCH ×2 (11:29→23:22)
[2016-04-12] MEDS: LISINOPRIL 20 MG TABLET (FP) GT SCH (11:29)
[2016-04-12] MEDS: METOPROLOL TARTRATE 50 MG TABLET (FP) GT SCH ×2 (11:29→23:22)
[2016-04-12] MEDS: MULTIVITAMINS THERAPEUTIC GT SCH (11:30)
[2016-04-12] MEDS: PANTOPRAZOLE SOD 40 MG SUSPENSION PACKET GT SCH (11:30)
--- NOTE | 2016-04-12 15:47 | PN ---
Progress Note (short form) - Note Progress Note: Vital Signs No fever or chills, no shortness of breath, no nausea or vomiting. Temperature 98.8 F 04/12/16 15:29 Pulse Rate 86 04/12/16 15:29 Respiratory Rate 24 04/12/16 15:29 Blood Pressure 138/72 04/12/16 15:29 O2 Sat by Pulse Oximetry (%) 97 04/12/16 10:09 SKIN: Warm, dry, normal turgor, no rashes or lesions noted GENERAL: The patient has periods of somnolence, periods of wakefulness. EYES: Pupils equal, round and reactive to light, sclera anicteric, conjunctiva clear. ENT: Ears normal, Moist mucous membranes. positive for Trach collar, thin. NECK: Normal range of motion, supple without lymphadenopathy, no JVD, or masses. LUNGS: Coarse breath sounds. No wheezes, and no crackles. HEART: Regular rate and rhythm, normal S1 and S2 without murmur, rub or gallop. ABDOMEN: Soft, nontender, normoactive bowel sounds. positive for G-tube EXTREMITIES: 2+ pulses, warm, well-perfused, no edema. NEUROLOGICAL: Unable to assess. SKIN: Wounds not visualized today. CBCD WBC 7.3 K/mm3 (4.0-10.0) 04/09/16 07:00 RBC 4.01 M/mm3 (4.00-5.60) 04/09/16 07:00 Hgb 11.0 GM/dL (11.7-16.9) L 04/09/16 07:00 Hct 34.6 % (35.4-49) L 04/09/16 07:00 MCV 86.3 fl (80-96) 04/09/16 07:00 MCHC 31.9 g/dl (32.0-35.9) L 04/09/16 07:00 RDW 16.7 % (11.9-15.9) H 04/09/16 07:00 Plt Count 208 K/MM3 (134-434) D 04/09/16 07:00 MPV 8.9 fl (7.5-11.1) 04/09/16 07:00 CMP Sodium 142 mmol/L (136-145) 04/09/16 07:00 Potassium 3.8 mmol/L (3.5-5.1) 04/09/16 07:00 Chloride 103 mmol/L (98-107) 04/09/16 07:00 Carbon Dioxide 30 mmol/L (21-32) 04/09/16 07:00 Anion Gap 9 (8-16) 04/09/16 07:00 BUN 25 mg/dL (7-18) H 04/09/16 07:00 Creatinine 0.9 mg/dL (0.7-1.3) 04/09/16 07:00 Creat Clearance w eGFR > 60 (>60) 04/09/16 07:00 Random Glucose 112 mg/dL (74-106) H D 04/09/16 07:00 Calcium 10.0 mg/dL (8.5-10.1) 04/09/16 07:00 Total Bilirubin 0.3 mg/dL (0.2-1.0) D 04/09/16 07:00 AST 47 U/L (15-37) H D 04/09/16 07:00 ALT 112 U/L (12-78) H 04/09/16 07:00 Alkaline Phosphatase 139 U/L (45-117) H 04/09/16 07:00 Total Protein 8.5 g/dl (6.4-8.2) H 04/09/16 07:00 Albumin 3.6 g/dl (3.4-5.0) 04/09/16 07:00 CARDIAC ENZYMES Creatine Kinase 62 IU/L (38-174) 06/28/15 09:35 Troponin I 0.07 ng/ml (0.03-0.5) D 07/09/15 05:00 Current Medications Generic Name Dose Route Start Last Admin Trade Name Freq PRN Reason Stop Dose Admin Acetaminophen 650 mg 12/29/15 10:43 03/02/16 05:07 Tylenol Oral Solution - GT 650 mg Q6H PRN Administration FEVER Amino Acids 30 ml 03/01/16 10:00 04/12/16 11:29 Prostat Sugar-Free Packet - PO 30 ml DAILY KWAKU Administration Amlodipine Besylate 10 mg 12/30/15 10:00 04/12/16 11:29 Norvasc - GT 10 mg DAILY KWAKU Administration Guaifenesin 10 ml 12/29/15 10:43 03/17/16 21:49 Robitussin Dm - PO 10 ml Q6H PRN Administration COUGH Ibuprofen 200 mg 12/29/15 10:43 04/03/16 21:38 Motrin Oral Suspension - PO 200 mg Q6H PRN Administration FEVER Insulin Aspart 1 vial 01/28/16 16:30 04/12/16 06:58 Novolog Vial Sliding Scale - SQ Not Given BIDI [facility] Protocol Insulin Detemir 28 units 12/29/15 22:00 04/11/16 23:02 Levemir Vial SQ 28 units HS KWAKU Administration Lactobacillus Acidophilus 1 tab 12/30/15 10:00 04/12/16 11:28 Bacid - PO 1 tab DAILY KWAKU Administration Lisinopril 40 mg 12/30/15 10:00 04/12/16 11:29 Prinivil - GT 40 mg DAILY KWAKU Administration Metoprolol Tartrate 150 mg 12/29/15 22:00 04/12/16 11:29 Lopressor - GT 150 mg BID KWAKU Administration Metoprolol Tartrate 5 mg 12/29/15 10:43 Lopressor Injection - IVPB Q6H PRN HYPERTENSION Multivitamins 5 ml 12/30/15 10:00 04/12/16 11:30 Thera-Plus - GT 5 ml DAILY KWAKU Administration Pantoprazole Sodium 40 mg 12/30/15 10:00 04/12/16 11:30 Protonix Packets For Oral Suspension - GT 40 mg DAILY KWAKU Administration Zinc Sulfate 220 mg 03/31/16 22:00 04/12/16 11:29 Orazinc - PO 220 mg BID KWAKU Administration Medication Instructions Recorded Amino Acids/Protein Hydrolys 30 ml GT DAILY packet 08/09/15 [Prostat Sugar-Free Packet -] Amlodipine Besylate [Norvasc -] 10 mg GT DAILY tablet 08/09/15 Chlorhexidine Gluconate [Peridex -] 15 ml MM BID cup 08/09/15 Insulin (Levemir) [Levemir Flexpen 25 units SQ HS pen 08/09/15 -] Insulin (Novolog) [Novolog Flexpen 3 units SQ Q6HPO pen 08/09/15 -] Insulin Sliding Scale [Novolog 0 units SQ Q6HPO pen 08/09/15 Vial Sliding Scale -] Lisinopril [Prinivil] 20 mg GT DAILY tablet 08/09/15 Metoprolol Tartrate Injection 5 mg IVPB Q6H PRN #0 vial 08/09/15 [Lopressor Injection -] Metoprolol Tartrate [Lopressor -] 100 mg GT BID tablet 08/09/15 Ondansetron Injection [Zofran 4 mg IVPB Q6H PRN #0 vial 08/09/15 Injection] Pantoprazole Suspension [Protonix 40 mg GT DAILY packet 08/09/15 Packets For Oral Suspension -] Vancomycin Oral Solution 125 mg GT Q6HPO ml 08/09/15 Assessment/Plan: 75 yo M with PMH HTN, DM, inguinal hernia a/w BRBPR and melena with multiple syncopal episodes. Dx with persistent diverticular bleed with R hemicolectomy, course complicated with CVA now in the ICU unresponsive and anoxic brain injury had tracheostomy on 07/23. also s/p PEG placement and iliac artery bleed s /p embolization 09/03/15. received a course of ABx for HCAp in Oct/nov no new changes. 1- s/p Leukocytosis and fever: resolved 2- b/l DVTS s/p IVC filter; anticoagulation is contraindicated due to severe GI bleed 3- GI bleed: resolved 4- anoxic brain injury 5- s/p Trach 07/23. s/p G-tube placement by IR today 6- DM controlled cont insulin with sliding scale , continue Levemir 7- HTN cont antihypertensive meds ; On Norvasc, Lisinipril and metoprolol continue. 8 dislodged G-tube s/p replacement of Gtube By IR 03/08/2016 9- hypernatremia due to dehydration resolved DVT Px: TEds - wound care ELevate HOB above 60 to avoid aspiration Glucerna 1.5 feeding 40cc/hr ---> goal 60cc/hr h20 is getting 50cc/hr -awaiting placement at [facility] facility
[2016-04-12] MEDS: INSULIN DETEMIR 100 UNITS/ML MDV SQ SCH (23:22)
[2016-04-13] MEDS: INSULIN SLIDING SCALE (NOVOLOG) 1 VIAL SQ SCH ×2 (07:06→16:41)
[2016-04-13] MEDS: LACTOBACILLUS ACIDOPHILUS 1 EACH TAB (FP) PO SCH (09:01)
[2016-04-13] MEDS: METOPROLOL TARTRATE 50 MG TABLET (FP) GT SCH ×2 (09:02→21:39)
[2016-04-13] MEDS: amLODIPine BESYLATE 10 MG TABLET (FP) GT SCH (09:02)
[2016-04-13] MEDS: PANTOPRAZOLE SOD 40 MG SUSPENSION PACKET GT SCH (09:02)
[2016-04-13] MEDS: ZINC SULFATE 220 MG CAPSULE (FP) PO SCH ×2 (09:02→21:39)
[2016-04-13] MEDS: LISINOPRIL 20 MG TABLET (FP) GT SCH (09:02)
[2016-04-13] MEDS: AMINO ACIDS/PROTEIN HYDROLYS SUGAR-FREE 30 ML PACKET PO SCH (10:00)
[2016-04-13] MEDS: MULTIVITAMINS THERAPEUTIC GT SCH (11:36)
--- NOTE | 2016-04-13 15:14 | PN ---
Progress Note (short form) - Note Progress Note: no change in his mental status, no shortness of breath. Vital Signs Temperature 99.0 F 04/13/16 10:00 Pulse Rate 98 H 04/13/16 10:35 Respiratory Rate 22 04/13/16 10:00 Blood Pressure 138/80 04/13/16 10:00 O2 Sat by Pulse Oximetry (%) 95 04/13/16 10:35 SKIN: Warm, dry, normal turgor, no rashes or lesions noted GENERAL: The patient has periods of somnolence, periods of wakefulness. EYES: Pupils equal, round and reactive to light, sclera anicteric, conjunctiva clear. ENT: Ears normal, Moist mucous membranes. positive for Trach collar, thin. NECK: Normal range of motion, supple without lymphadenopathy, no JVD, or masses. LUNGS: Coarse breath sounds. No wheezes, and no crackles. HEART: Regular rate and rhythm, normal S1 and S2 without murmur, rub or gallop. ABDOMEN: Soft, nontender, normoactive bowel sounds. positive for G-tube EXTREMITIES: 2+ pulses, warm, well-perfused, no edema. NEUROLOGICAL: Unable to assess. SKIN: Wounds not visualized today. CBCD WBC 7.3 K/mm3 (4.0-10.0) 04/09/16 07:00 RBC 4.01 M/mm3 (4.00-5.60) 04/09/16 07:00 Hgb 11.0 GM/dL (11.7-16.9) L 04/09/16 07:00 Hct 34.6 % (35.4-49) L 04/09/16 07:00 MCV 86.3 fl (80-96) 04/09/16 07:00 MCHC 31.9 g/dl (32.0-35.9) L 04/09/16 07:00 RDW 16.7 % (11.9-15.9) H 04/09/16 07:00 Plt Count 208 K/MM3 (134-434) D 04/09/16 07:00 MPV 8.9 fl (7.5-11.1) 04/09/16 07:00 CMP Sodium 142 mmol/L (136-145) 04/09/16 07:00 Potassium 3.8 mmol/L (3.5-5.1) 04/09/16 07:00 Chloride 103 mmol/L (98-107) 04/09/16 07:00 Carbon Dioxide 30 mmol/L (21-32) 04/09/16 07:00 Anion Gap 9 (8-16) 04/09/16 07:00 BUN 25 mg/dL (7-18) H 04/09/16 07:00 Creatinine 0.9 mg/dL (0.7-1.3) 04/09/16 07:00 Creat Clearance w eGFR > 60 (>60) 04/09/16 07:00 Random Glucose 112 mg/dL (74-106) H D 04/09/16 07:00 Calcium 10.0 mg/dL (8.5-10.1) 04/09/16 07:00 Total Bilirubin 0.3 mg/dL (0.2-1.0) D 04/09/16 07:00 AST 47 U/L (15-37) H D 04/09/16 07:00 ALT 112 U/L (12-78) H 04/09/16 07:00 Alkaline Phosphatase 139 U/L (45-117) H 04/09/16 07:00 Total Protein 8.5 g/dl (6.4-8.2) H 04/09/16 07:00 Albumin 3.6 g/dl (3.4-5.0) 04/09/16 07:00 CARDIAC ENZYMES Creatine Kinase 62 IU/L (38-174) 06/28/15 09:35 Troponin I 0.07 ng/ml (0.03-0.5) D 07/09/15 05:00 Current Medications Generic Name Dose Route Start Last Admin Trade Name Freq PRN Reason Stop Dose Admin Acetaminophen 650 mg 12/29/15 10:43 03/02/16 05:07 Tylenol Oral Solution - GT 650 mg Q6H PRN Administration FEVER Amino Acids 30 ml 03/01/16 10:00 04/13/16 10:00 Prostat Sugar-Free Packet - PO 30 ml DAILY KWAKU Administration Amlodipine Besylate 10 mg 12/30/15 10:00 04/13/16 09:02 Norvasc - GT 10 mg DAILY KWAKU Administration Guaifenesin 10 ml 12/29/15 10:43 03/17/16 21:49 Robitussin Dm - PO 10 ml Q6H PRN Administration COUGH Ibuprofen 200 mg 12/29/15 10:43 04/03/16 21:38 Motrin Oral Suspension - PO 200 mg Q6H PRN Administration FEVER Insulin Aspart 1 vial 01/28/16 16:30 04/13/16 07:06 Novolog Vial Sliding Scale - SQ Not Given BIDI [facility] Protocol Insulin Detemir 28 units 12/29/15 22:00 04/12/16 23:22 Levemir Vial SQ 28 units HS KWAKU Administration Lactobacillus Acidophilus 1 tab 12/30/15 10:00 04/13/16 09:01 Bacid - PO 1 tab DAILY KWAKU Administration Lisinopril 40 mg 12/30/15 10:00 04/13/16 09:02 Prinivil - GT 40 mg DAILY KWAKU Administration Metoprolol Tartrate 150 mg 12/29/15 22:00 04/13/16 09:02 Lopressor - GT 150 mg BID KWAKU Administration Metoprolol Tartrate 5 mg 12/29/15 10:43 Lopressor Injection - IVPB Q6H PRN HYPERTENSION Multivitamins 5 ml 12/30/15 10:00 04/13/16 11:36 Thera-Plus - GT 5 ml DAILY KWAKU Administration Pantoprazole Sodium 40 mg 12/30/15 10:00 04/13/16 09:02 Protonix Packets For Oral Suspension - GT 40 mg DAILY KWAKU Administration Zinc Sulfate 220 mg 03/31/16 22:00 04/13/16 09:02 Orazinc - PO 220 mg BID KWAKU Administration Hepatic Panel Total Bilirubin 0.3 mg/dL (0.2-1.0) D 04/09/16 07:00 AST 47 U/L (15-37) H D 04/09/16 07:00 ALT 112 U/L (12-78) H 04/09/16 07:00 Alkaline Phosphatase 139 U/L (45-117) H 04/09/16 07:00 Albumin 3.6 g/dl (3.4-5.0) 04/09/16 07:00 Assessment/Plan: 75 yo M with PMH HTN, DM, inguinal hernia a/w BRBPR and melena with multiple syncopal episodes. Dx with persistent diverticular bleed with R hemicolectomy, course complicated with CVA now in the ICU unresponsive and anoxic brain injury had tracheostomy on 07/23. also s/p PEG placement and iliac artery bleed s /p embolization 09/03/15. received a course of ABx for HCAp in Oct/nov No change in status 1- s/p Leukocytosis and fever: resolved 2- b/l DVTS s/p IVC filter; anticoagulation is contraindicated due to severe GI bleed 3- GI bleed: resolved 4- anoxic brain injury 5- s/p Trach 07/23. s/p G-tube placement by IR today 6- DM controlled cont insulin with sliding scale , continue Levemir 7- HTN cont antihypertensive meds ; On Norvasc, Lisinipril and metoprolol continue. 8 dislodged G-tube s/p replacement of Gtube By IR 03/08/2016 9- hypernatremia due to dehydration resolved DVT Px: TEds - wound care ELevate HOB above 60 to avoid aspiration Glucerna 1.5 feeding 40cc/hr ---> goal 60cc/hr h20 is getting 50cc/hr -awaiting placement at [facility] facility cbc with diff, cmp, mag, phos.
[2016-04-13] MEDS: ACETAMINOPHEN 650 MG/20.3 ML ORAL SOLUTION (CUPS) GT PRN (16:41)
[2016-04-13] MEDS: INSULIN DETEMIR 100 UNITS/ML MDV SQ SCH (21:38)
[2016-04-14] MEDS: INSULIN SLIDING SCALE (NOVOLOG) 1 VIAL SQ SCH ×2 (06:10→17:31)
[2016-04-14] MEDS: METOPROLOL TARTRATE 50 MG TABLET (FP) GT SCH ×2 (10:18→22:59)
[2016-04-14] MEDS: LACTOBACILLUS ACIDOPHILUS 1 EACH TAB (FP) PO SCH (10:18)
[2016-04-14] MEDS: MULTIVITAMINS THERAPEUTIC GT SCH (10:19)
[2016-04-14] MEDS: amLODIPine BESYLATE 10 MG TABLET (FP) GT SCH (10:19)
[2016-04-14] MEDS: PANTOPRAZOLE SOD 40 MG SUSPENSION PACKET GT SCH (10:19)
[2016-04-14] MEDS: AMINO ACIDS/PROTEIN HYDROLYS SUGAR-FREE 30 ML PACKET PO SCH (10:19)
[2016-04-14] MEDS: LISINOPRIL 20 MG TABLET (FP) GT SCH (10:19)
[2016-04-14] MEDS: ZINC SULFATE 220 MG CAPSULE (FP) PO SCH ×2 (10:19→22:59)
[2016-04-14] MEDS: ACETAMINOPHEN 650 MG/20.3 ML ORAL SOLUTION (CUPS) GT PRN ×2 (14:58→22:59)
[2016-04-14] MEDS: INSULIN DETEMIR 100 UNITS/ML MDV SQ SCH (22:53)
--- NOTE | 2016-04-14 23:17 | PN ---
Progress Note (short form) - Note Progress Note: No new change. Vital Signs Temperature 98.4 F 04/14/16 17:45 Pulse Rate 75 04/14/16 17:45 Respiratory Rate 22 04/14/16 17:45 Blood Pressure 147/81 04/14/16 17:45 O2 Sat by Pulse Oximetry (%) 98 04/14/16 10:35 SKIN: Warm, dry, normal turgor, no rashes or lesions noted GENERAL: The patient has periods of somnolence, periods of wakefulness. EYES: Pupils equal, round and reactive to light, sclera anicteric, conjunctiva clear. ENT: Ears normal, Moist mucous membranes. positive for Trach collar, thin. NECK: Normal range of motion, supple without lymphadenopathy, no JVD, or masses. LUNGS: Coarse breath sounds. No wheezes, and no crackles. HEART: Regular rate and rhythm, normal S1 and S2 without murmur, rub or gallop. ABDOMEN: Soft, nontender, normoactive bowel sounds. positive for G-tube EXTREMITIES: 2+ pulses, warm, well-perfused, no edema. NEUROLOGICAL: Unable to assess. SKIN: Wounds not visualized today. CBCD WBC 7.3 K/mm3 (4.0-10.0) 04/09/16 07:00 RBC 4.01 M/mm3 (4.00-5.60) 04/09/16 07:00 Hgb 11.0 GM/dL (11.7-16.9) L 04/09/16 07:00 Hct 34.6 % (35.4-49) L 04/09/16 07:00 MCV 86.3 fl (80-96) 04/09/16 07:00 MCHC 31.9 g/dl (32.0-35.9) L 04/09/16 07:00 RDW 16.7 % (11.9-15.9) H 04/09/16 07:00 Plt Count 208 K/MM3 (134-434) D 04/09/16 07:00 MPV 8.9 fl (7.5-11.1) 04/09/16 07:00 CMP Sodium 142 mmol/L (136-145) 04/09/16 07:00 Potassium 3.8 mmol/L (3.5-5.1) 04/09/16 07:00 Chloride 103 mmol/L (98-107) 04/09/16 07:00 Carbon Dioxide 30 mmol/L (21-32) 04/09/16 07:00 Anion Gap 9 (8-16) 04/09/16 07:00 BUN 25 mg/dL (7-18) H 04/09/16 07:00 Creatinine 0.9 mg/dL (0.7-1.3) 04/09/16 07:00 Creat Clearance w eGFR > 60 (>60) 04/09/16 07:00 Random Glucose 112 mg/dL (74-106) H D 04/09/16 07:00 Calcium 10.0 mg/dL (8.5-10.1) 04/09/16 07:00 Total Bilirubin 0.3 mg/dL (0.2-1.0) D 04/09/16 07:00 AST 47 U/L (15-37) H D 04/09/16 07:00 ALT 112 U/L (12-78) H 04/09/16 07:00 Alkaline Phosphatase 139 U/L (45-117) H 04/09/16 07:00 Total Protein 8.5 g/dl (6.4-8.2) H 04/09/16 07:00 Albumin 3.6 g/dl (3.4-5.0) 04/09/16 07:00 CARDIAC ENZYMES Creatine Kinase 62 IU/L (38-174) 06/28/15 09:35 Troponin I 0.07 ng/ml (0.03-0.5) D 07/09/15 05:00 Current Medications Generic Name Dose Route Start Last Admin Trade Name Ginette PRN Reason Stop Dose Admin Acetaminophen 650 mg 12/29/15 10:43 04/14/16 22:59 Tylenol Oral Solution - GT 650 mg Q6H PRN Administration FEVER Amino Acids 30 ml 03/01/16 10:00 04/14/16 10:19 Prostat Sugar-Free Packet - PO 30 ml DAILY KWAKU Administration Amlodipine Besylate 10 mg 12/30/15 10:00 04/14/16 10:19 Norvasc - GT 10 mg DAILY KWAKU Administration Guaifenesin 10 ml 12/29/15 10:43 03/17/16 21:49 Robitussin Dm - PO 10 ml Q6H PRN Administration COUGH Ibuprofen 200 mg 12/29/15 10:43 04/03/16 21:38 Motrin Oral Suspension - PO 200 mg Q6H PRN Administration FEVER Insulin Aspart 1 vial 01/28/16 16:30 04/14/16 17:31 Novolog Vial Sliding Scale - SQ 2 units BIDI KWAKU Administration Protocol Insulin Detemir 28 units 12/29/15 22:00 04/14/16 22:53 Levemir Vial SQ Not Given HS KWAKU Lactobacillus Acidophilus 1 tab 12/30/15 10:00 04/14/16 10:18 Bacid - PO 1 tab DAILY KWAKU Administration Lisinopril 40 mg 12/30/15 10:00 04/14/16 10:19 Prinivil - GT 40 mg DAILY KWAKU Administration Metoprolol Tartrate 150 mg 12/29/15 22:00 04/14/16 22:59 Lopressor - GT 150 mg BID KWAKU Administration Metoprolol Tartrate 5 mg 12/29/15 10:43 Lopressor Injection - IVPB Q6H PRN HYPERTENSION Multivitamins 5 ml 12/30/15 10:00 04/14/16 10:19 Thera-Plus - GT 5 ml DAILY KWAKU Administration Pantoprazole Sodium 40 mg 12/30/15 10:00 04/14/16 10:19 Protonix Packets For Oral Suspension - GT 40 mg DAILY KWAKU Administration Zinc Sulfate 220 mg 03/31/16 22:00 04/14/16 22:59 Orazinc - PO 220 mg BID KWAKU Administration Assessment/Plan: 75 yo M with PMH HTN, DM, inguinal hernia a/w BRBPR and melena with multiple syncopal episodes. Dx with persistent diverticular bleed with R hemicolectomy, course complicated with CVA now in the ICU unresponsive and anoxic brain injury had tracheostomy on 07/23. also s/p PEG placement and iliac artery bleed s /p embolization 09/03/15. received a course of ABx for HCAp in Oct/nov No change in status 1- s/p Leukocytosis and fever: resolved 2- b/l DVTS s/p IVC filter; anticoagulation is contraindicated due to severe GI bleed 3- GI bleed: resolved 4- anoxic brain injury 5- s/p Trach 07/23. s/p G-tube placement by IR today 6- DM controlled cont insulin with sliding scale , continue Levemir 7- HTN cont antihypertensive meds ; On Norvasc, Lisinipril and metoprolol continue. 8 dislodged G-tube s/p replacement of Gtube By IR 03/08/2016 9- hypernatremia due to dehydration resolved DVT Px: TEds - wound care ELevate HOB above 60 to avoid aspiration Glucerna 1.5 feeding 40cc/hr ---> goal 60cc/hr h20 is getting 50cc/hr -awaiting placement at [facility] facility repeat labs:cbc with diff, cmp, mag, phos.
[2016-04-15] MEDS: INSULIN SLIDING SCALE (NOVOLOG) 1 VIAL SQ SCH ×2 (06:06→16:54)
[2016-04-15 08:49] LABS: BASOPHIL 0.8 % (0-2.0); EOSINOPHIL 4.5 % (0-4.5); MCH 27.7 pg (25.7-33.7); MCHC 32.2 g/dl (32.0-35.9); MEAN CELL VOLUME 85.9 fl (80-96); MEAN PLT VOLUME 8.7 fl (7.5-11.1); NEUTROPHILS 58.3 % (42.8-82.8); PLATELET COUNT 197 K/MM3 (134-434); RDW 16.3 % (11.9-15.9); WHITE BLOOD COUNT 6.8 K/mm3 (4.0-10.0)
[2016-04-15 09:29] LABS: ALBUMIN 3.5 g/dl (3.4-5.0); ALK PHOS 141 U/L (45-117); ANION GAP 11 (8-16); BILIRUBIN,TOTAL 0.2 mg/dL (0.2-1.0); CO2 28 mmol/L (21-32); CREATININE 0.8 mg/dL (0.7-1.3); GLUCOSE,RANDOM 118 mg/dL (74-106); MAGNESIUM 2.3 mg/dL (1.8-2.4); PHOSPHOROUS 3.7 mg/dL (2.5-4.9); SGOT/AST 36 U/L (15-37); SGPT/ALT 92 U/L (12-78); TOT PROT 8.3 g/dl (6.4-8.2)
[2016-04-15] MEDS: METOPROLOL TARTRATE 50 MG TABLET (FP) GT SCH ×2 (09:54→21:26)
[2016-04-15] MEDS: LISINOPRIL 20 MG TABLET (FP) GT SCH (09:54)
[2016-04-15] MEDS: PANTOPRAZOLE SOD 40 MG SUSPENSION PACKET GT SCH (09:54)
[2016-04-15] MEDS: ZINC SULFATE 220 MG CAPSULE (FP) PO SCH ×2 (09:55→21:26)
[2016-04-15] MEDS: AMINO ACIDS/PROTEIN HYDROLYS SUGAR-FREE 30 ML PACKET PO SCH (09:55)
[2016-04-15] MEDS: amLODIPine BESYLATE 10 MG TABLET (FP) GT SCH (09:55)
[2016-04-15] MEDS: MULTIVITAMINS THERAPEUTIC GT SCH (09:56)
[2016-04-15] MEDS: LACTOBACILLUS ACIDOPHILUS 1 EACH TAB (FP) PO SCH (09:57)
[2016-04-16] MEDS: INSULIN SLIDING SCALE (NOVOLOG) 1 VIAL SQ SCH ×2 (06:37→18:20)
[2016-04-16] MEDS: LISINOPRIL 20 MG TABLET (FP) GT SCH (10:29)
[2016-04-16] MEDS: amLODIPine BESYLATE 10 MG TABLET (FP) GT SCH (10:29)
[2016-04-16] MEDS: METOPROLOL TARTRATE 50 MG TABLET (FP) GT SCH ×2 (10:29→22:06)
[2016-04-16] MEDS: ZINC SULFATE 220 MG CAPSULE (FP) PO SCH ×2 (10:30→22:07)
[2016-04-16] MEDS: MULTIVITAMINS THERAPEUTIC GT SCH (10:30)
[2016-04-16] MEDS: PANTOPRAZOLE SOD 40 MG SUSPENSION PACKET GT SCH (10:30)
[2016-04-16] MEDS: LACTOBACILLUS ACIDOPHILUS 1 EACH TAB (FP) PO SCH (10:30)
[2016-04-16] MEDS: AMINO ACIDS/PROTEIN HYDROLYS SUGAR-FREE 30 ML PACKET PO SCH (10:30)
[2016-04-16] MEDS: INSULIN DETEMIR 100 UNITS/ML MDV SQ SCH (22:05)
[2016-04-17] MEDS: INSULIN SLIDING SCALE (NOVOLOG) 1 VIAL SQ SCH ×2 (06:43→18:10)
[2016-04-17] MEDS: METOPROLOL TARTRATE 50 MG TABLET (FP) GT SCH ×2 (11:00→22:37)
[2016-04-17] MEDS: amLODIPine BESYLATE 10 MG TABLET (FP) GT SCH (11:00)
[2016-04-17] MEDS: ZINC SULFATE 220 MG CAPSULE (FP) PO SCH ×2 (11:00→22:38)
[2016-04-17] MEDS: LACTOBACILLUS ACIDOPHILUS 1 EACH TAB (FP) PO SCH (11:00)
[2016-04-17] MEDS: AMINO ACIDS/PROTEIN HYDROLYS SUGAR-FREE 30 ML PACKET PO SCH (11:00)
[2016-04-17] MEDS: LISINOPRIL 20 MG TABLET (FP) GT SCH (11:00)
[2016-04-17] MEDS: MULTIVITAMINS THERAPEUTIC GT SCH (11:00)
[2016-04-17] MEDS: PANTOPRAZOLE SOD 40 MG SUSPENSION PACKET GT SCH (11:01)
--- NOTE | 2016-04-17 17:51 | PN ---
Progress Note (short form) - Note Progress Note: Subjective: unable to obtain hx. no events over night. had fever x2 tiday Objective: Last Vital Signs Temp Pulse Resp BP Pulse Ox 100.6 F H 74 20 136/78 96 04/17/16 15:27 04/17/16 15:27 04/17/16 15:27 04/17/16 15:27 04/17/16 11:00 ext: no edema abd: soft, NT, ND , nl BS. PEG in place CV: RRR Lungs : CTAB Laboratory Results - last 24 hr 04/17/16 06:41 POC Glucometer 130 Assessment/Plan: 75 yo M with PMH HTN, DM, inguinal hernia a/w BRBPR and melena with multiple syncopal episodes. Dx with persistent diverticular bleed with R hemicolectomy, course complicated with CVA now in the ICU unresponsive and anoxic brain injury had tracheostomy on 07/23. also s/p PEG placement and iliac artery bleed s /p embolization 09/03/15. received a course of ABx for HCAp in Oct/nov 1- fever: recurred 2- b/l DVTS s/p IVC filter 3- GI bleed: resolved 4- anoxic brain injury 5- s/p Trach 07/23. s/p PEG 6- DM . 7- HTN 8- LFTS abn: elevayed Alk Phos 9- hypernatremia resolved Plan: - w/u for fever : check UA , cxray , send blood cx , CBC - check GGT , repeat LFTS in am , unclear why alk phos is elevated . - cont TF - cont antihypertensive meds - cont insulin - SCDs - wound care
[2016-04-17 19:30] LABS: URINE APPEARANCE CLOUDY; URINE BILIRUBIN NEGATIVE (NEGATIVE); URINE BLOOD NEGATIVE (NEGATIVE); URINE COLOR YELLOW; URINE GLUCOSE (UA) NEGATIVE (NEGATIVE); URINE KETONE NEGATIVE (NEGATIVE); URINE LEUK ESTERASE NEGATIVE (NEGATIVE); URINE NITRITE NEGATIVE (NEGATIVE); URINE PROTEIN NEGATIVE (NEGATIVE); URINE UROBILINOGEN NEGATIVE E.U./dl (0.2-1.0)
[2016-04-17] MEDS: INSULIN DETEMIR 100 UNITS/ML MDV SQ SCH (22:36)
[2016-04-18] MEDS: INSULIN SLIDING SCALE (NOVOLOG) 1 VIAL SQ SCH ×2 (06:35→17:42)
[2016-04-18 08:13] LABS: BASOPHIL 0.7 % (0-2.0); EOSINOPHIL 4.1 % (0-4.5); MCHC 32.7 g/dl (32.0-35.9); MEAN CELL VOLUME 85.5 fl (80-96); MEAN PLT VOLUME 9.4 fl (7.5-11.1); NEUTROPHILS 61.6 % (42.8-82.8); PLATELET COUNT 216 K/MM3 (134-434); RDW 16.5 % (11.9-15.9); WHITE BLOOD COUNT 7.6 K/mm3 (4.0-10.0)
[2016-04-18 08:53] LABS: ALBUMIN 3.6 g/dl (3.4-5.0); BILIRUBIN,DIRECT 0.1 mg/dL (0.0-0.2); BILIRUBIN,TOTAL 0.3 mg/dL (0.2-1.0); TOT PROT 8.1 g/dl (6.4-8.2)
[2016-04-18] MEDS: LISINOPRIL 20 MG TABLET (FP) GT SCH (11:04)
[2016-04-18] MEDS: amLODIPine BESYLATE 10 MG TABLET (FP) GT SCH (11:04)
[2016-04-18] MEDS: AMINO ACIDS/PROTEIN HYDROLYS SUGAR-FREE 30 ML PACKET PO SCH (11:05)
[2016-04-18] MEDS: ZINC SULFATE 220 MG CAPSULE (FP) PO SCH ×2 (11:05→22:20)
[2016-04-18] MEDS: PANTOPRAZOLE SOD 40 MG SUSPENSION PACKET GT SCH (11:05)
[2016-04-18] MEDS: METOPROLOL TARTRATE 50 MG TABLET (FP) GT SCH ×2 (11:05→21:36)
[2016-04-18] MEDS: LACTOBACILLUS ACIDOPHILUS 1 EACH TAB (FP) PO SCH (11:06)
[2016-04-18] MEDS: MULTIVITAMINS THERAPEUTIC GT SCH (11:06)
--- NOTE | 2016-04-18 14:40 | PN ---
Progress Note (short form) - Note Progress Note: Subjective: unable to obtain hx. cont to have low grade fever Objective: Last Vital Signs Temp Pulse Resp BP Pulse Ox 100.4 F H 89 20 143/87 98 04/18/16 10:00 04/18/16 13:51 04/18/16 11:05 04/18/16 11:05 04/18/16 13:51 ext: no edema abd: soft, NT, ND , nl BS. PEG in place , with no erythema or discharge CV: RRR Lungs: CTAB decub stage 3 , with no signs of infection Laboratory Results - last 24 hr 04/17/16 04/17/16 04/18/16 18:03 18:30 05:45 WBC 7.6 RBC 3.65 L Hgb 10.2 L Hct 31.2 L MCV 85.5 MCHC 32.7 RDW 16.5 H Plt Count 216 MPV 9.4 Neutrophils % 61.6 Lymphocytes % 28.1 Monocytes % 5.5 Eosinophils % 4.1 Basophils % 0.7 POC Glucometer 152 Total Bilirubin Direct Bilirubin GGT AST ALT Alkaline Phosphatase Total Protein Albumin Urine Color Yellow Urine Appearance Cloudy Urine pH 7.0 Ur Specific [place] 1.012 Urine Protein Negative Urine Glucose (UA) Negative Urine Ketones Negative Urine Blood Negative Urine Nitrite Negative Urine Bilirubin Negative Urine Urobilinogen Negative Ur Leukocyte Esterase Negative 04/18/16 04/18/16 05:45 05:59 WBC RBC Hgb Hct MCV MCHC RDW Plt Count MPV Neutrophils % Lymphocytes % Monocytes % Eosinophils % Basophils % POC Glucometer 127 Total Bilirubin 0.3 D Direct Bilirubin 0.1 GGT 29 AST 43 H ALT 104 H Alkaline Phosphatase 140 H Total Protein 8.1 Albumin 3.6 Urine Color Urine Appearance Urine pH Ur Specific [place] Urine Protein Urine Glucose (UA) Urine Ketones Urine Blood Urine Nitrite Urine Bilirubin Urine Urobilinogen Ur Leukocyte Esterase Assessment/Plan: 75 yo M with PMH HTN, DM, inguinal hernia a/w BRBPR and melena with multiple syncopal episodes. Dx with persistent diverticular bleed with R hemicolectomy, course complicated with CVA now in the ICU unresponsive and anoxic brain injury had tracheostomy on 07/23. also s/p PEG placement and iliac artery bleed s /p embolization 09/03/15. received a course of ABx for HCAp in Oct/nov 1- fever: recurred 2- b/l DVTS s/p IVC filter 3- GI bleed: resolved 4- anoxic brain injury 5- s/p Trach 07/23. s/p PEG 6- DM . 7- HTN 8- LFTS abn: elevayed Alk Phos 9- hypernatremia resolved Plan: - w/u for fever : UA , cxray , WBC , nothing to suggest infection . check c diff toxin new DVT can cause fever , but US is not to change mgt , as he has IVC filter. will not start empiric abx follow blood cx - if fever continues, and ALk phos cont to rise , need to check US. GGT is nl though , which suggests a bone source not biliary source . will track. - cont TF - cont antihypertensive meds - cont insulin - SCDs - wound care
[2016-04-18] MEDS: INSULIN DETEMIR 100 UNITS/ML MDV SQ SCH (21:36)
[2016-04-19] MEDS: INSULIN SLIDING SCALE (NOVOLOG) 1 VIAL SQ SCH ×2 (06:11→17:30)
[2016-04-19 09:15] LABS: ALBUMIN 3.2 g/dl (3.4-5.0)
[2016-04-19 09:19] LABS: ALK PHOS 136 U/L (45-117); BILIRUBIN,TOTAL 0.2 mg/dL (0.2-1.0); SGPT/ALT 92 U/L (12-78); TOT PROT 7.9 g/dl (6.4-8.2)
[2016-04-19 09:31] LABS: BILIRUBIN,DIRECT < 0.1 mg/dL (0.0-0.2); SGOT/AST 52 U/L (15-37)
[2016-04-19] MEDS: ZINC SULFATE 220 MG CAPSULE (FP) PO SCH ×2 (10:23→22:59)
[2016-04-19] MEDS: LISINOPRIL 20 MG TABLET (FP) GT SCH (10:23)
[2016-04-19] MEDS: AMINO ACIDS/PROTEIN HYDROLYS SUGAR-FREE 30 ML PACKET PO SCH (10:23)
[2016-04-19] MEDS: METOPROLOL TARTRATE 50 MG TABLET (FP) GT SCH ×2 (10:23→22:58)
[2016-04-19] MEDS: LACTOBACILLUS ACIDOPHILUS 1 EACH TAB (FP) PO SCH (10:23)
[2016-04-19] MEDS: amLODIPine BESYLATE 10 MG TABLET (FP) GT SCH (10:23)
[2016-04-19] MEDS: MULTIVITAMINS THERAPEUTIC GT SCH (10:24)
[2016-04-19] MEDS: PANTOPRAZOLE SOD 40 MG SUSPENSION PACKET GT SCH (10:24)
--- NOTE | 2016-04-19 11:45 | PN ---
Progress Note, Physician History of Present Illness: pt seen and evaluated at the bedside - Current Medication List Current Medications: Active Medications Acetaminophen (Tylenol Oral Solution -) 650 mg GT Q6H PRN PRN Reason: FEVER Last Admin: 04/14/16 22:59 Dose: 650 mg Amino Acids (Prostat Sugar-Free Packet -) 30 ml PO DAILY [facility] Last Admin: 04/19/16 10:23 Dose: 30 ml Amlodipine Besylate (Norvasc -) 10 mg GT DAILY [facility] Last Admin: 04/19/16 10:23 Dose: 10 mg Guaifenesin (Robitussin Dm -) 10 ml PO Q6H PRN PRN Reason: COUGH Last Admin: 03/17/16 21:49 Dose: 10 ml Ibuprofen (Motrin Oral Suspension -) 200 mg PO Q6H PRN PRN Reason: FEVER Last Admin: 04/03/16 21:38 Dose: 200 mg Insulin Aspart (Novolog Vial Sliding Scale -) 1 vial SQ BIDI [facility] PRN Reason: Protocol Last Admin: 04/19/16 06:11 Dose: Not Given Insulin Detemir (Levemir Vial) 28 units SQ HS [facility] Last Admin: 04/18/16 21:36 Dose: 28 units Lactobacillus Acidophilus (Bacid -) 1 tab PO DAILY [facility] Last Admin: 04/19/16 10:23 Dose: 1 tab Lisinopril (Prinivil -) 40 mg GT DAILY [facility] Last Admin: 04/19/16 10:23 Dose: 40 mg Metoprolol Tartrate (Lopressor -) 150 mg GT BID [facility] Last Admin: 04/19/16 10:23 Dose: 150 mg Metoprolol Tartrate (Lopressor Injection -) 5 mg IVPB Q6H PRN PRN Reason: HYPERTENSION Multivitamins (Thera-Plus -) 5 ml GT DAILY [facility] Last Admin: 04/19/16 10:24 Dose: 5 ml Pantoprazole Sodium (Protonix Packets For Oral Suspension -) 40 mg GT DAILY [facility] Last Admin: 04/19/16 10:24 Dose: 40 mg Zinc Sulfate (Orazinc -) 220 mg PO BID [facility] Last Admin: 04/19/16 10:23 Dose: 220 mg - Objective Vital Signs: Vital Signs Temperature 100.4 F H 04/19/16 11:01 Pulse Rate 82 04/19/16 10:22 Respiratory Rate 20 04/19/16 10:22 Blood Pressure 136/77 04/19/16 10:22 O2 Sat by Pulse Oximetry (%) 97 04/19/16 09:55 Constitutional: Yes: No Distress, Calm Eyes: Yes: WNL, Conjunctiva Clear HENT: Yes: Atraumatic, Normocephalic, Other (trach collar in place) Neck: Yes: WNL, Supple, Trachea Midline Cardiovascular: Yes: WNL, Regular Rate and Rhythm Respiratory: Yes: WNL, Regular, CTA Bilaterally Gastrointestinal: Yes: Normal Bowel Sounds, Soft, Other (PEG in place) Musculoskeletal: Yes: WNL Extremities: Yes: WNL Edema: No Integumentary: Yes: WNL Neurological: Yes: WNL, Alert, Oriented ...Motor Strength: WNL Psychiatric: Yes: WNL Labs: CBC, BMP 04/18/16 05:45 04/15/16 07:20 INR, PTT INR 1.29 (0.80-1.00) H 12/26/15 08:45 Assessment/Plan 75 year old male admitted on 06/26 with GI bleed, course complicated by acute CVA and respiratory failure s/p intubation-->tracheostomy and PEG. 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 diff HTN -cont amlodipine -cont lisinopril -cont metoprolol DM -cont sliding scale -cont levemir 28 DVT proph -restart lovenox 40
--- NOTE | 2016-04-19 13:12 | WOUND ---
Wound Assessment [facility] Request for consultation: by [facility] Interdisciplinary Wound Care Team Initial Encounter: No Previous Encounter: No - History of Present Illness Past Medical History Cardio/Vascular HTN Endocrine Diabetes Mellitus Past Surgical History Past Surgical History Hernia Repair Social History Smoking history Never smoked Have you smoked in the past 12 No months Hx Alcohol Use No Current Medications Generic Name Dose Route Start Last Admin Trade Name Freq PRN Reason Stop Dose Admin Acetaminophen 650 mg 12/29/15 10:43 04/14/16 22:59 Tylenol Oral Solution - GT 650 mg Q6H PRN Administration FEVER Amino Acids 30 ml 03/01/16 10:00 04/19/16 10:23 Prostat Sugar-Free Packet - PO 30 ml DAILY [facility] Administration Amlodipine Besylate 10 mg 12/30/15 10:00 04/19/16 10:23 Norvasc - GT 10 mg DAILY [facility] Administration Enoxaparin Sodium 40 mg 04/19/16 13:15 Lovenox - SQ DAILY [facility] Guaifenesin 10 ml 12/29/15 10:43 03/17/16 21:49 Robitussin Dm - PO 10 ml Q6H PRN Administration COUGH Ibuprofen 200 mg 12/29/15 10:43 04/03/16 21:38 Motrin Oral Suspension - PO 200 mg Q6H PRN Administration FEVER Insulin Aspart 1 vial 01/28/16 16:30 04/19/16 06:11 Novolog Vial Sliding Scale - SQ Not Given [facility] Protocol Insulin Detemir 28 units 12/29/15 22:00 04/18/16 21:36 Levemir Vial SQ 28 units HS [facility] Administration Lactobacillus Acidophilus 1 tab 12/30/15 10:00 04/19/16 10:23 Bacid - PO 1 tab DAILY [facility] Administration Lisinopril 40 mg 12/30/15 10:00 04/19/16 10:23 Prinivil - GT 40 mg DAILY [facility] Administration Metoprolol Tartrate 150 mg 12/29/15 22:00 04/19/16 10:23 Lopressor - GT 150 mg BID [facility] Administration Metoprolol Tartrate 5 mg 12/29/15 10:43 Lopressor Injection - IVPB Q6H PRN HYPERTENSION Multivitamins 5 ml 12/30/15 10:00 04/19/16 10:24 Thera-Plus - GT 5 ml DAILY [facility] Administration Pantoprazole Sodium 40 mg 12/30/15 10:00 04/19/16 10:24 Protonix Packets For Oral Suspension - GT 40 mg DAILY [facility] Administration Zinc Sulfate 220 mg 03/31/16 22:00 04/19/16 10:23 Orazinc - PO 220 mg BID [facility] Administration Allergies Allergy/AdvReac Type Severity Reaction Status Date / Time No Known Allergies Allergy Verified 06/26/15 21:31 Physical Exam - Objective Last Vital Signs Temp Pulse Resp BP Pulse Ox 100.4 F H 82 20 136/77 97 04/19/16 11:01 04/19/16 10:22 04/19/16 10:22 04/19/16 10:22 04/19/16 09:55 Laboratory Last Values WBC 7.6 K/mm3 (4.0-10.0) 04/18/16 05:45 Corrected WBC (auto) Cancelled 06/26/15 21:50 RBC 3.65 M/mm3 (4.00-5.60) L 04/18/16 05:45 Hgb 10.2 GM/dL (11.7-16.9) L 04/18/16 05:45 Hct 31.2 % (35.4-49) L 04/18/16 05:45 MCV 85.5 fl (80-96) 04/18/16 05:45 MCHC 32.7 g/dl (32.0-35.9) 04/18/16 05:45 RDW 16.5 % (11.9-15.9) H 04/18/16 05:45 Plt Count 216 K/MM3 (134-434) 04/18/16 05:45 MPV 9.4 fl (7.5-11.1) 04/18/16 05:45 Add Manual Diff Cancelled 06/26/15 21:50 Neutrophils % 61.6 % (42.8-82.8) 04/18/16 05:45 Lymphocytes % 28.1 % (8-40) 04/18/16 05:45 Monocytes % 5.5 % (3.8-10.2) 04/18/16 05:45 Eosinophils % 4.1 % (0-4.5) 04/18/16 05:45 Basophils % 0.7 % (0-2.0) 04/18/16 05:45 Band Neutrophils 6.0 % (0-10) 06/28/15 09:35 Differential Comment Slide scanned 09/16/15 07:20 Smudge Cells Cancelled 06/26/15 21:50 Platelet Estimate Adequate (NORMAL) 09/16/15 07:20 Platelet Comment No clumping noted 09/16/15 07:20 Platelet Comment No clotting detected 09/16/15 07:20 Normal RBC Morphology Cancelled 06/26/15 21:50 RBC Morphology Cancelled 06/26/15 21:50 ESR 100 mm/hr (0-20) H 02/03/16 06:25 INR 1.29 (0.80-1.00) H 12/26/15 08:45 PTT (Actin FS) 28.9 SECONDS (23.5-38.3) 09/03/15 19:20 Anticoagulation Therapy Y 07/11/15 07:07 Puncture Site Right radial 07/11/15 07:07 ABG pH 7.44 (7.35-7.45) 07/11/15 07:07 ABG pCO2 at Pt Temp 42.1 mmHg (35-45) 07/11/15 07:07 ABG pO2 at Pt Temp 113.0 mmHg (70-100) H D 07/11/15 07:07 ABG HCO3 27.8 meq/L (22-26) H 07/11/15 07:07 ABG O2 Sat (Measured) 99.1 % (90-98.9) H 07/11/15 07:07 ABG O2 Content 13.3 % vol (15-22) L 07/11/15 07:07 ABG Base Excess 3.8 meq/l (-2-2) H 07/11/15 07:07 Izaiah Test Positive 07/11/15 07:07 O2 Delivery Device Ventilator 07/11/15 07:07 Oxygen Flow Rate 30% 07/11/15 07:07 Vent Mode A/c 07/11/15 07:07 Vent Rate 10 07/11/15 07:07 Mechanical Rate Yes 07/11/15 07:07 PEEP 5.0 cmH2O 07/11/15 07:07 Pressure Support Vent 500 07/11/15 07:07 Sodium 140 mmol/L (136-145) 04/15/16 07:20 Potassium 3.7 mmol/L (3.5-5.1) 04/15/16 07:20 Chloride 101 mmol/L (98-107) 04/15/16 07:20 Carbon Dioxide 28 mmol/L (21-32) 04/15/16 07:20 Anion Gap 11 (8-16) 04/15/16 07:20 BUN 23 mg/dL (7-18) H 04/15/16 07:20 Creatinine 0.8 mg/dL (0.7-1.3) 04/15/16 07:20 Creat Clearance w eGFR > 60 (>60) 04/15/16 07:20 POC Glucometer 118 UNITS (()) 04/19/16 06:03 Random Glucose 118 mg/dL (74-106) H 04/15/16 07:20 Lactic Acid 1.217 mmol/L (0.4-2.0) 12/25/15 12:45 Calcium 10.0 mg/dL (8.5-10.1) 04/15/16 07:20 Phosphorus 3.7 mg/dL (2.5-4.9) 04/15/16 07:20 Magnesium 2.3 mg/dL (1.8-2.4) 04/15/16 07:20 Total Bilirubin 0.2 mg/dL (0.2-1.0) D 04/19/16 07:30 Direct Bilirubin < 0.1 mg/dL (0.0-0.2) 04/19/16 07:30 GGT 29 U/L (5-85) 04/18/16 05:45 AST 52 U/L (15-37) H D 04/19/16 07:30 ALT 92 U/L (12-78) H 04/19/16 07:30 Alkaline Phosphatase 136 U/L (45-117) H 04/19/16 07:30 Creatine Kinase 62 IU/L (38-174) 06/28/15 09:35 Creatine Kinase Index 0.7 % (0.0-5.0) 06/26/15 21:50 CK-MB (CK-2) 1.077 ng/ml (0.3-4.0) 06/26/15 21:50 CK-MB (CK-2) Rel Index Cancelled 06/26/15 21:50 Troponin I 0.07 ng/ml (0.03-0.5) D 07/09/15 05:00 C-Reactive Protein 2.1 MG/DL (0.00-0.3) H 09/03/15 07:30 Total Protein 7.9 g/dl (6.4-8.2) 04/19/16 07:30 Albumin 3.2 g/dl (3.4-5.0) L 04/19/16 07:30 Triglycerides 143 mg/dL (35-160) D 09/02/15 06:30 Cholesterol 106 mg/dL (50-200) D 09/02/15 06:30 Total LDL Cholesterol 66 mg/dL 09/02/15 06:30 HDL Cholesterol 26 mg/dL (40-60) L D 09/02/15 06:30 Lipase 140 U/L (73-293) 06/26/15 21:50 Prolactin 19.8 ng/ml (4.0-15.2) H 07/02/15 05:20 Urine Color Yellow 04/17/16 18:30 Urine Appearance Cloudy 04/17/16 18:30 Urine pH 7.0 (5.0-8.0) 04/17/16 18:30 Ur Specific [place] 1.012 (1.001-1.035) 04/17/16 18:30 Urine Protein Negative (NEGATIVE) 04/17/16 18:30 Urine Glucose (UA) Negative (NEGATIVE) 04/17/16 18:30 Urine Ketones Negative (NEGATIVE) 04/17/16 18:30 Urine Blood Negative (NEGATIVE) 04/17/16 18:30 Urine Nitrite Negative (NEGATIVE) 04/17/16 18:30 Urine Bilirubin Negative (NEGATIVE) 04/17/16 18:30 Urine Ictotest Negative (NEGATIVE) 01/29/16 14:44 Urine Urobilinogen Negative E.U./dl (0.2-1.0) 04/17/16 18:30 Ur Leukocyte Esterase Negative (NEGATIVE) 04/17/16 18:30 Urine RBC 2 /hpf (0-3) 02/23/16 19:45 Urine WBC 47 /hpf (3-5) 02/23/16 19:45 Ur Epithelial Cells Rare /hpf (FEW) 02/23/16 19:45 Calcium Oxalate Crystal Few /hpf (NONE SEEN) 01/29/16 14:44 Urine Bacteria Many /hpf (NEGATIVE) 01/29/16 14:44 Hyaline Casts 3 /lpf 01/29/16 14:44 Granular Casts 0 /lpf 01/29/16 14:44 Urine Mucus Rare 02/23/16 19:45 Urine Yeast Few 01/29/16 14:44 Stool Occult Blood Negative (NEGATIVE) 07/02/15 12:00 Vancomycin Trough 20.819 ug/ml (5.0-10.0) H* 12/01/15 04:30 Hepatitis C Ab (EIA) <0.1 s/co ratio (0.0-0.9) 07/03/15 05:15 Blood Type O POSITIVE 09/03/15 18:48 Antibody Screen Negative 09/03/15 18:48 Crossmatch See Detail 09/03/15 19:20 Crossmatch IS Only See Detail 06/26/15 21:50 Spec Expiration Date 06/26/15 21:50 Microbiology 04/17/16 16:55 Blood - Peripheral Venous Blood Culture - Preliminary NO GROWTH OBTAINED AFTER 24 HOURS, INCUBATION TO CONTINUE FOR 4 DAYS. 04/17/16 16:55 Blood - Peripheral Venous Blood Culture - Preliminary NO GROWTH OBTAINED AFTER 24 HOURS, INCUBATION TO CONTINUE FOR 4 DAYS. 03/27/16 15:25 Stool Clostridium difficile Antigen (MACHO) - Final 03/27/16 15:25 Stool Clostridium difficile Toxin Assay - Final 03/02/16 02:00 Stool Clostridium difficile Antigen (MACHO) - Final 03/02/16 02:00 Stool Clostridium difficile Toxin Assay - Final 02/28/16 16:30 Urine - Urine - Catheterized Urine Culture - Final NO GROWTH OBTAINED 02/23/16 17:35 Blood - Peripheral Venous Blood Culture - Final NO GROWTH AFTER 5 DAYS INCUBATION 02/23/16 17:35 Blood - Peripheral Venous Blood Culture - Final NO GROWTH AFTER 5 DAYS INCUBATION 02/27/16 14:15 Urine - Urine Clean Catch Urine Culture - Final Contaminated: Please Repeat 02/23/16 19:45 Urine - Urine Schwartz Urine Culture - Final Contaminated: Please Repeat 01/29/16 11:05 Blood - Peripheral Venous Blood Culture - Final NO GROWTH AFTER 5 DAYS INCUBATION 01/29/16 11:05 Blood - Peripheral Venous Blood Culture - Final NO GROWTH AFTER 5 DAYS INCUBATION 01/30/16 08:00 Sputum - Endotracheal Suction W/O Vent Gram Stain - Final 01/30/16 08:00 Sputum - Endotracheal Suction W/O Vent Sputum Culture - Final Acinetobacter Baumannii/Haemol 01/29/16 22:12 Stool Clostridium difficile Antigen (MACHO) - Final 01/29/16 22:12 Stool Clostridium difficile Toxin Assay - Final 01/29/16 14:44 Urine - Urine - Catheterized Urine Culture - Final NO GROWTH OBTAINED 01/06/16 16:00 Stool Clostridium difficile Antigen (MACHO) - Final 01/06/16 16:00 Stool Clostridium difficile Toxin Assay - Final 12/24/15 04:00 Blood - Peripheral Venous Blood Culture - Final NO GROWTH AFTER 5 DAYS INCUBATION 12/24/15 03:30 Blood - Peripheral Venous Blood Culture - Final NO GROWTH AFTER 5 DAYS INCUBATION 12/24/15 05:45 Urine - Urine Clean Catch Urine Culture - Final 10/28/15 10:50 Blood - Peripheral Venous Blood Culture - Final NO GROWTH AFTER 5 DAYS INCUBATION 10/28/15 10:50 Blood - Peripheral Venous Blood Culture - Final NO GROWTH AFTER 5 DAYS INCUBATION 10/30/15 21:15 Stool Clostridium difficile (PCR) - Final 10/28/15 14:30 Urine - Urine - Catheterized Urine Culture - Final NO GROWTH OBTAINED 10/29/15 11:15 Stool Clostridium difficile Antigen (MACHO) - Final 10/29/15 11:15 Stool Clostridium difficile Toxin Assay - Final 09/08/15 16:30 Stool Clostridium difficile Antigen (MACHO) - Final 09/08/15 16:30 Stool Clostridium difficile Toxin Assay - Final 09/01/15 08:53 Blood - Peripheral Venous Blood Culture - Final NO GROWTH AFTER 5 DAYS INCUBATION 09/01/15 08:53 Blood - Peripheral Venous Blood Culture - Final NO GROWTH AFTER 5 DAYS INCUBATION 09/01/15 10:10 Urine - Urine - Catheterized Urine Culture - Final 08/25/15 15:00 Blood - Peripheral Venous Blood Culture - Final NO GROWTH AFTER 5 DAYS INCUBATION 08/25/15 15:00 Blood - Peripheral Venous Blood Culture - Final NO GROWTH AFTER 5 DAYS INCUBATION 08/24/15 19:30 Stool Clostridium difficile Antigen (MCAHO) - Final 08/24/15 19:30 Stool Clostridium difficile Toxin Assay - Final 08/14/15 10:50 Blood - Peripheral Venous Blood Culture - Final NO GROWTH AFTER 5 DAYS INCUBATION 08/14/15 10:50 Blood - Peripheral Venous Blood Culture - Final NO GROWTH AFTER 5 DAYS INCUBATION 08/02/15 17:20 Blood - Peripheral Venous Blood Culture - Final NO GROWTH AFTER 5 DAYS INCUBATION 08/02/15 17:20 Blood - Peripheral Venous Blood Culture - Final NO GROWTH AFTER 5 DAYS INCUBATION 07/24/15 21:50 Sputum - Endotrachea Suction/Ventilator Gram Stain - Final 07/24/15 21:50 Sputum - Endotrachea Suction/Ventilator Sputum Culture - Final NORMAL RESPIRATORY ARMAND 07/30/15 18:30 Blood - Peripheral Venous Blood Culture - Final NO GROWTH AFTER 5 DAYS INCUBATION 07/30/15 18:30 Blood - Peripheral Venous Blood Culture - Final NO GROWTH AFTER 5 DAYS INCUBATION 08/02/15 19:00 Urine - Urine Schwartz Urine Culture - Final NO GROWTH OBTAINED 08/02/15 22:55 Stool Clostridium difficile Antigen (MACHO) - Final 08/02/15 22:55 Stool Clostridium difficile Toxin Assay - Final 07/27/15 19:00 Blood - Peripheral Venous Blood Culture - Final NO GROWTH AFTER 5 DAYS INCUBATION 07/27/15 19:00 Blood - Peripheral Venous Blood Culture - Final NO GROWTH AFTER 5 DAYS INCUBATION 07/27/15 19:30 Stool Clostridium difficile (PCR) - Final 07/27/15 15:55 Urine - Urine Schwartz Urine Culture - Final NO GROWTH OBTAINED 07/15/15 11:30 Blood - Peripheral Venous Blood Culture - Final NO GROWTH AFTER 5 DAYS INCUBATION 07/15/15 11:30 Blood - Peripheral Venous Blood Culture - Final NO GROWTH AFTER 5 DAYS INCUBATION 07/10/15 10:30 Stool Stool Culture - Final NO SALMONELLA, SHIGELLA, YERSINIA, CAMPYLOBACTER OR E COLI 0157 ISOLATED 07/10/15 10:35 Stool Clostridium difficile Antigen (MACHO) - Final 07/10/15 10:35 Stool Clostridium difficile Toxin Assay - Final 07/10/15 10:30 Stool Gram Stain - Final 07/02/15 18:00 Blood - Peripheral Venous Blood Culture - Final NO GROWTH AFTER 5 DAYS INCUBATION 07/02/15 18:00 Blood - Peripheral Venous Blood Culture - Final NO GROWTH AFTER 5 DAYS INCUBATION 06/28/15 09:32 Blood - Peripheral Venous Blood Culture - Final NO GROWTH AFTER 5 DAYS INCUBATION 06/28/15 09:32 Blood - Peripheral Venous Blood Culture - Final NO GROWTH AFTER 5 DAYS INCUBATION 06/28/15 17:30 Sputum - Endotrachea Suction/Ventilator Gram Stain - Final 06/28/15 17:30 Sputum - Endotrachea Suction/Ventilator Sputum Culture - Final NORMAL RESPIRATORY ARMAND 06/27/15 20:30 Urine - Urine Schwartz Urine Culture - Final NO GROWTH OBTAINED 06/28/15 10:00 Urine For Antigen Detection Legionella Antigen - Final 06/28/15 10:00 Urine For Antigen Detection Streptococcus pneumoniae Antigen (M - Final Wounds - Wound Wound #1 Type of wound: Yes: Pressure ulcer Stage: III (Healed) Location/laterality: right buttock Wound #2 Type of wound: Yes: Pressure ulcer Stage: III (healing) Location/laterality: left buttock Assessment/Plan Wound #1 Diagnosis: Pressure ulcer Wound specific intervention: Allevyn dressing only. Allevyn dressing only. Wound #2 Diagnosis: Pressure ulcer Wound specific intervention: Alleyn dressing only Impediments to healing: Limited mobility, Unable to self-position in bed, Hypoalbunemia, Nutritional deficiencies, Incontinence of urine, Incontinence of bowel, Other (Trach, PEG) Nutrition/Dietary supplements/vitamins: No additional recommendations Support Surface: Accucair Overlay HOB elevation: 30 degrees Off-loading: Turning/repositioning q2h Incontinence management: Avoid diapers; if must be used, do not secure around patient
[2016-04-19] MEDS: ENOXAPARIN NA (PORCINE) 40 MG/0.4 ML DISP.SYRIN SQ SCH (14:50)
[2016-04-19] MEDS: INSULIN DETEMIR 100 UNITS/ML MDV SQ SCH (23:01)
[2016-04-20] MEDS: INSULIN SLIDING SCALE (NOVOLOG) 1 VIAL SQ SCH ×2 (06:31→17:25)
[2016-04-20] MEDS: PANTOPRAZOLE SOD 40 MG SUSPENSION PACKET GT SCH (10:33)
[2016-04-20] MEDS: METOPROLOL TARTRATE 50 MG TABLET (FP) GT SCH ×2 (10:33→23:24)
[2016-04-20] MEDS: ZINC SULFATE 220 MG CAPSULE (FP) PO SCH ×2 (10:33→23:37)
[2016-04-20] MEDS: MULTIVITAMINS THERAPEUTIC GT SCH (10:33)
[2016-04-20] MEDS: LISINOPRIL 20 MG TABLET (FP) GT SCH (10:33)
[2016-04-20] MEDS: ENOXAPARIN NA (PORCINE) 40 MG/0.4 ML DISP.SYRIN SQ SCH (10:34)
[2016-04-20] MEDS: amLODIPine BESYLATE 10 MG TABLET (FP) GT SCH (10:34)
[2016-04-20] MEDS: ACETAMINOPHEN 650 MG/20.3 ML ORAL SOLUTION (CUPS) GT PRN (10:34)
[2016-04-20] MEDS: LACTOBACILLUS ACIDOPHILUS 1 EACH TAB (FP) PO SCH (10:34)
[2016-04-20] MEDS: AMINO ACIDS/PROTEIN HYDROLYS SUGAR-FREE 30 ML PACKET PO SCH (10:34)
--- NOTE | 2016-04-20 11:25 | PN ---
Progress Note, Physician - Current Medication List Current Medications: Active Medications Acetaminophen (Tylenol Oral Solution -) 650 mg GT Q6H PRN PRN Reason: FEVER Last Admin: 04/20/16 10:34 Dose: 650 mg Amino Acids (Prostat Sugar-Free Packet -) 30 ml PO DAILY [facility] Last Admin: 04/20/16 10:34 Dose: 30 ml Amlodipine Besylate (Norvasc -) 10 mg GT DAILY [facility] Last Admin: 04/20/16 10:34 Dose: 10 mg Enoxaparin Sodium (Lovenox -) 40 mg SQ DAILY [facility] Last Admin: 04/20/16 10:34 Dose: 40 mg Guaifenesin (Robitussin Dm -) 10 ml PO Q6H PRN PRN Reason: COUGH Last Admin: 03/17/16 21:49 Dose: 10 ml Ibuprofen (Motrin Oral Suspension -) 200 mg PO Q6H PRN PRN Reason: FEVER Last Admin: 04/03/16 21:38 Dose: 200 mg Insulin Aspart (Novolog Vial Sliding Scale -) 1 vial SQ BIDI [facility] PRN Reason: Protocol Last Admin: 04/20/16 06:31 Dose: Not Given Insulin Detemir (Levemir Vial) 28 units SQ HS [facility] Last Admin: 04/19/16 23:01 Dose: 28 units Lactobacillus Acidophilus (Bacid -) 1 tab PO DAILY [facility] Last Admin: 04/20/16 10:34 Dose: 1 tab Lisinopril (Prinivil -) 40 mg GT DAILY [facility] Last Admin: 04/20/16 10:33 Dose: 40 mg Metoprolol Tartrate (Lopressor -) 150 mg GT BID [facility] Last Admin: 04/20/16 10:33 Dose: 150 mg Metoprolol Tartrate (Lopressor Injection -) 5 mg IVPB Q6H PRN PRN Reason: HYPERTENSION Multivitamins (Thera-Plus -) 5 ml GT DAILY [facility] Last Admin: 04/20/16 10:33 Dose: 5 ml Pantoprazole Sodium (Protonix Packets For Oral Suspension -) 40 mg GT DAILY [facility] Last Admin: 04/20/16 10:33 Dose: 40 mg Zinc Sulfate (Orazinc -) 220 mg PO BID [facility] Last Admin: 04/20/16 10:33 Dose: 220 mg - Objective Vital Signs: Vital Signs Temperature 99.6 F 04/20/16 06:00 Pulse Rate 78 04/20/16 09:54 Respiratory Rate 20 04/20/16 06:00 Blood Pressure 149/86 04/20/16 06:00 O2 Sat by Pulse Oximetry (%) 98 04/20/16 09:54 Constitutional: Yes: Well Nourished, No Distress, Calm Eyes: Yes: WNL, Conjunctiva Clear HENT: Yes: WNL, Atraumatic, Normocephalic Neck: Yes: Supple, Trachea Midline, Other (trach in place) Cardiovascular: Yes: WNL, Regular Rate and Rhythm Respiratory: Yes: WNL, Regular, CTA Bilaterally Gastrointestinal: Yes: Normal Bowel Sounds, Other (peg in place) Musculoskeletal: Yes: WNL Extremities: Yes: WNL Edema: No Integumentary: Yes: WNL Neurological: Yes: WNL, Alert, Oriented ...Motor Strength: WNL Psychiatric: Yes: WNL Labs: CBC, BMP 04/18/16 05:45 04/15/16 07:20 INR, PTT INR 1.29 (0.80-1.00) H 12/26/15 08:45 Assessment/Plan 75 year old male admitted on 06/26 with GI bleed, course complicated by acute CVA and respiratory failure s/p intubation-->tracheostomy and PEG. 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 diff negative HTN -cont amlodipine -cont lisinopril -cont metoprolol DM -cont sliding scale -cont levemir 28 DVT proph -restarted lovenox 40
[2016-04-20] MEDS: INSULIN DETEMIR 100 UNITS/ML MDV SQ SCH (23:24)
[2016-04-21] MEDS: INSULIN SLIDING SCALE (NOVOLOG) 1 VIAL SQ SCH ×2 (06:30→16:41)
--- NOTE | 2016-04-21 08:25 | PN ---
Progress Note (short form) - Note Progress Note: Merino sno new changes, lying in bed with no acute distress Vital Signs Temperature 99.0 F 04/21/16 06:00 Pulse Rate 65 04/21/16 06:00 Respiratory Rate 18 04/21/16 06:00 Blood Pressure 149/89 04/21/16 06:00 O2 Sat by Pulse Oximetry (%) 98 04/20/16 21:00 SKIN: Warm, dry, normal turgor, no rashes or lesions noted GENERAL: The patient has periods of somnolence, periods of wakefulness. EYES: Pupils equal, round and reactive to light, sclera anicteric, conjunctiva clear. ENT: Ears normal, Moist mucous membranes. positive for Trach collar, thin. NECK: Normal range of motion, supple without lymphadenopathy, no JVD, or masses. LUNGS: Coarse breath sounds. No wheezes, and no crackles. HEART: Regular rate and rhythm, normal S1 and S2 without murmur, rub or gallop. ABDOMEN: Soft, nontender, normoactive bowel sounds. positive for G-tube EXTREMITIES: 2+ pulses, warm, well-perfused, no edema. NEUROLOGICAL: Unable to assess. SKIN: Wounds not visualized today. CBCD WBC 7.6 K/mm3 (4.0-10.0) 04/18/16 05:45 RBC 3.65 M/mm3 (4.00-5.60) L 04/18/16 05:45 Hgb 10.2 GM/dL (11.7-16.9) L 04/18/16 05:45 Hct 31.2 % (35.4-49) L 04/18/16 05:45 MCV 85.5 fl (80-96) 04/18/16 05:45 MCHC 32.7 g/dl (32.0-35.9) 04/18/16 05:45 RDW 16.5 % (11.9-15.9) H 04/18/16 05:45 Plt Count 216 K/MM3 (134-434) 04/18/16 05:45 MPV 9.4 fl (7.5-11.1) 04/18/16 05:45 CMP Sodium 140 mmol/L (136-145) 04/15/16 07:20 Potassium 3.7 mmol/L (3.5-5.1) 04/15/16 07:20 Chloride 101 mmol/L (98-107) 04/15/16 07:20 Carbon Dioxide 28 mmol/L (21-32) 04/15/16 07:20 Anion Gap 11 (8-16) 04/15/16 07:20 BUN 23 mg/dL (7-18) H 04/15/16 07:20 Creatinine 0.8 mg/dL (0.7-1.3) 04/15/16 07:20 Creat Clearance w eGFR > 60 (>60) 04/15/16 07:20 Random Glucose 118 mg/dL (74-106) H 04/15/16 07:20 Calcium 10.0 mg/dL (8.5-10.1) 04/15/16 07:20 Total Bilirubin 0.2 mg/dL (0.2-1.0) D 04/19/16 07:30 AST 52 U/L (15-37) H D 04/19/16 07:30 ALT 92 U/L (12-78) H 04/19/16 07:30 Alkaline Phosphatase 136 U/L (45-117) H 04/19/16 07:30 Total Protein 7.9 g/dl (6.4-8.2) 04/19/16 07:30 Albumin 3.2 g/dl (3.4-5.0) L 04/19/16 07:30 CARDIAC ENZYMES Creatine Kinase 62 IU/L (38-174) 06/28/15 09:35 Troponin I 0.07 ng/ml (0.03-0.5) D 07/09/15 05:00 Current Medications Generic Name Dose Route Start Last Admin Trade Name Freq PRN Reason Stop Dose Admin Acetaminophen 650 mg 12/29/15 10:43 04/20/16 10:34 Tylenol Oral Solution - GT 650 mg Q6H PRN Administration FEVER Amino Acids 30 ml 03/01/16 10:00 04/20/16 10:34 Prostat Sugar-Free Packet - PO 30 ml DAILY KWAKU Administration Amlodipine Besylate 10 mg 12/30/15 10:00 04/20/16 10:34 Norvasc - GT 10 mg DAILY KWAKU Administration Enoxaparin Sodium 40 mg 04/19/16 13:15 04/20/16 10:34 Lovenox - SQ 40 mg DAILY KWAKU Administration Guaifenesin 10 ml 12/29/15 10:43 03/17/16 21:49 Robitussin Dm - PO 10 ml Q6H PRN Administration COUGH Ibuprofen 200 mg 12/29/15 10:43 04/03/16 21:38 Motrin Oral Suspension - PO 200 mg Q6H PRN Administration FEVER Insulin Aspart 1 vial 01/28/16 16:30 04/21/16 06:30 Novolog Vial Sliding Scale - SQ Not Given BIDI [facility] Protocol Insulin Detemir 28 units 12/29/15 22:00 04/20/16 23:24 Levemir Vial SQ 28 units HS KWAKU Administration Lactobacillus Acidophilus 1 tab 12/30/15 10:00 04/20/16 10:34 Bacid - PO 1 tab DAILY KWAKU Administration Lisinopril 40 mg 12/30/15 10:00 04/20/16 10:33 Prinivil - GT 40 mg DAILY KWAKU Administration Metoprolol Tartrate 150 mg 12/29/15 22:00 04/20/16 23:24 Lopressor - GT 150 mg BID KWAKU Administration Metoprolol Tartrate 5 mg 12/29/15 10:43 Lopressor Injection - IVPB Q6H PRN HYPERTENSION Multivitamins 5 ml 12/30/15 10:00 04/20/16 10:33 Thera-Plus - GT 5 ml DAILY KWAKU Administration Pantoprazole Sodium 40 mg 12/30/15 10:00 04/20/16 10:33 Protonix Packets For Oral Suspension - GT 40 mg DAILY KWAKU Administration Zinc Sulfate 220 mg 03/31/16 22:00 04/20/16 23:37 Orazinc - PO 220 mg BID KWAKU Administration Assessment/Plan: 75 yo M with PMH HTN, DM, inguinal hernia a/w BRBPR and melena with multiple syncopal episodes. Dx with persistent diverticular bleed with R hemicolectomy, course complicated with CVA now in the ICU unresponsive and anoxic brain injury had tracheostomy on 07/23. also s/p PEG placement and iliac artery bleed s /p embolization 09/03/15. received a course of ABx for HCAp in Oct/nov No change in status 1- s/p Leukocytosis and fever: resolved 2- b/l DVTS s/p IVC filter; anticoagulation is contraindicated due to severe GI bleed 3- GI bleed: resolved 4- anoxic brain injury 5- s/p Trach 07/23. s/p G-tube placement by IR today 6- DM controlled cont insulin with sliding scale , continue Levemir 7- HTN cont antihypertensive meds ; On Norvasc, Lisinipril and metoprolol continue. 8 dislodged G-tube s/p replacement of Gtube By IR 03/08/2016 9- hypernatremia due to dehydration resolved DVT Px: TEds - wound care ELevate HOB above 60 to avoid aspiration Glucerna 1.5 feeding 40cc/hr ---> goal 60cc/hr h20 is getting 50cc/hr -awaiting placement at [facility] facility repeat labs:cbc with diff, cmp, mag, phos.
[2016-04-21] MEDS: ACETAMINOPHEN 650 MG/20.3 ML ORAL SOLUTION (CUPS) GT PRN (09:56)
[2016-04-21] MEDS: LISINOPRIL 20 MG TABLET (FP) GT SCH (09:57)
[2016-04-21] MEDS: PANTOPRAZOLE SOD 40 MG SUSPENSION PACKET GT SCH (09:57)
[2016-04-21] MEDS: MULTIVITAMINS THERAPEUTIC GT SCH (09:57)
[2016-04-21] MEDS: ZINC SULFATE 220 MG CAPSULE (FP) PO SCH ×2 (09:57→22:19)
[2016-04-21] MEDS: LACTOBACILLUS ACIDOPHILUS 1 EACH TAB (FP) PO SCH (09:57)
[2016-04-21] MEDS: amLODIPine BESYLATE 10 MG TABLET (FP) GT SCH (09:57)
[2016-04-21] MEDS: AMINO ACIDS/PROTEIN HYDROLYS SUGAR-FREE 30 ML PACKET PO SCH (09:57)
[2016-04-21] MEDS: ENOXAPARIN NA (PORCINE) 40 MG/0.4 ML DISP.SYRIN SQ SCH (09:57)
[2016-04-21] MEDS: METOPROLOL TARTRATE 50 MG TABLET (FP) GT SCH ×2 (09:57→22:19)
[2016-04-21] MEDS: INSULIN DETEMIR 100 UNITS/ML MDV SQ SCH (22:20)
[2016-04-22] MEDS: INSULIN SLIDING SCALE (NOVOLOG) 1 VIAL SQ SCH ×2 (06:03→16:35)
[2016-04-22] MEDS: LACTOBACILLUS ACIDOPHILUS 1 EACH TAB (FP) PO SCH (10:59)
[2016-04-22] MEDS: PANTOPRAZOLE SOD 40 MG SUSPENSION PACKET GT SCH (11:00)
[2016-04-22] MEDS: LISINOPRIL 20 MG TABLET (FP) GT SCH (11:00)
[2016-04-22] MEDS: ZINC SULFATE 220 MG CAPSULE (FP) PO SCH ×2 (11:00→21:59)
[2016-04-22] MEDS: ENOXAPARIN NA (PORCINE) 40 MG/0.4 ML DISP.SYRIN SQ SCH (11:00)
[2016-04-22] MEDS: amLODIPine BESYLATE 10 MG TABLET (FP) GT SCH (11:01)
[2016-04-22] MEDS: AMINO ACIDS/PROTEIN HYDROLYS SUGAR-FREE 30 ML PACKET PO SCH (11:01)
[2016-04-22] MEDS: METOPROLOL TARTRATE 50 MG TABLET (FP) GT SCH ×2 (11:01→21:59)
[2016-04-22] MEDS: MULTIVITAMINS THERAPEUTIC GT SCH (11:02)
--- NOTE | 2016-04-22 16:41 | PN ---
Progress Note (short form) - Note Progress Note: no new changes lying in bed comfortably. Vital Signs Temperature 99.1 F 04/22/16 14:00 Pulse Rate 83 04/22/16 14:30 Respiratory Rate 19 04/22/16 14:00 Blood Pressure 153/97 04/22/16 14:00 O2 Sat by Pulse Oximetry (%) 98 04/22/16 14:30 SKIN: Warm, dry, normal turgor, no rashes or lesions noted GENERAL: The patient has periods of somnolence, periods of wakefulness. EYES: Pupils equal, round and reactive to light, sclera anicteric, conjunctiva clear. ENT: Ears normal, Moist mucous membranes. positive for Trach collar, thin. NECK: Normal range of motion, supple without lymphadenopathy, no JVD, or masses. LUNGS: Coarse breath sounds. No wheezes, and no crackles. HEART: Regular rate and rhythm, normal S1 and S2 without murmur, rub or gallop. ABDOMEN: Soft, nontender, normoactive bowel sounds. positive for G-tube EXTREMITIES: 2+ pulses, warm, well-perfused, no edema. NEUROLOGICAL: Unable to assess. SKIN: Wounds not visualized today. CBCD WBC 7.6 K/mm3 (4.0-10.0) 04/18/16 05:45 RBC 3.65 M/mm3 (4.00-5.60) L 04/18/16 05:45 Hgb 10.2 GM/dL (11.7-16.9) L 04/18/16 05:45 Hct 31.2 % (35.4-49) L 04/18/16 05:45 MCV 85.5 fl (80-96) 04/18/16 05:45 MCHC 32.7 g/dl (32.0-35.9) 04/18/16 05:45 RDW 16.5 % (11.9-15.9) H 04/18/16 05:45 Plt Count 216 K/MM3 (134-434) 04/18/16 05:45 MPV 9.4 fl (7.5-11.1) 04/18/16 05:45 CMP Sodium 140 mmol/L (136-145) 04/15/16 07:20 Potassium 3.7 mmol/L (3.5-5.1) 04/15/16 07:20 Chloride 101 mmol/L (98-107) 04/15/16 07:20 Carbon Dioxide 28 mmol/L (21-32) 04/15/16 07:20 Anion Gap 11 (8-16) 04/15/16 07:20 BUN 23 mg/dL (7-18) H 04/15/16 07:20 Creatinine 0.8 mg/dL (0.7-1.3) 04/15/16 07:20 Creat Clearance w eGFR > 60 (>60) 04/15/16 07:20 Random Glucose 118 mg/dL (74-106) H 04/15/16 07:20 Calcium 10.0 mg/dL (8.5-10.1) 04/15/16 07:20 Total Bilirubin 0.2 mg/dL (0.2-1.0) D 04/19/16 07:30 AST 52 U/L (15-37) H D 04/19/16 07:30 ALT 92 U/L (12-78) H 04/19/16 07:30 Alkaline Phosphatase 136 U/L (45-117) H 04/19/16 07:30 Total Protein 7.9 g/dl (6.4-8.2) 04/19/16 07:30 Albumin 3.2 g/dl (3.4-5.0) L 04/19/16 07:30 CARDIAC ENZYMES Creatine Kinase 62 IU/L (38-174) 06/28/15 09:35 Troponin I 0.07 ng/ml (0.03-0.5) D 07/09/15 05:00 Current Medications Generic Name Dose Route Start Last Admin Trade Name Jaylanq PRN Reason Stop Dose Admin Acetaminophen 650 mg 12/29/15 10:43 04/21/16 09:56 Tylenol Oral Solution - GT 650 mg Q6H PRN Administration FEVER Amino Acids 30 ml 03/01/16 10:00 04/22/16 11:01 Prostat Sugar-Free Packet - PO 30 ml DAILY KWAKU Administration Amlodipine Besylate 10 mg 12/30/15 10:00 04/22/16 11:01 Norvasc - GT 10 mg DAILY KWAKU Administration Enoxaparin Sodium 40 mg 04/19/16 13:15 04/22/16 11:00 Lovenox - SQ 40 mg DAILY KWAKU Administration Guaifenesin 10 ml 12/29/15 10:43 03/17/16 21:49 Robitussin Dm - PO 10 ml Q6H PRN Administration COUGH Ibuprofen 200 mg 12/29/15 10:43 04/03/16 21:38 Motrin Oral Suspension - PO 200 mg Q6H PRN Administration FEVER Insulin Aspart 1 vial 01/28/16 16:30 04/22/16 16:35 Novolog Vial Sliding Scale - SQ Not Given BIDI [facility] Protocol Insulin Detemir 28 units 12/29/15 22:00 04/21/16 22:20 Levemir Vial SQ 28 units HS KWAKU Administration Lactobacillus Acidophilus 1 tab 12/30/15 10:00 04/22/16 10:59 Bacid - PO 1 tab DAILY KWAKU Administration Lisinopril 40 mg 12/30/15 10:00 04/22/16 11:00 Prinivil - GT 40 mg DAILY KWAKU Administration Metoprolol Tartrate 150 mg 12/29/15 22:00 04/22/16 11:01 Lopressor - GT 150 mg BID KWAKU Administration Metoprolol Tartrate 5 mg 12/29/15 10:43 Lopressor Injection - IVPB Q6H PRN HYPERTENSION Multivitamins 5 ml 12/30/15 10:00 04/22/16 11:02 Thera-Plus - GT 5 ml DAILY KWAKU Administration Pantoprazole Sodium 40 mg 12/30/15 10:00 04/22/16 11:00 Protonix Packets For Oral Suspension - GT 40 mg DAILY KWAKU Administration Zinc Sulfate 220 mg 03/31/16 22:00 04/22/16 11:00 Orazinc - PO 220 mg BID KWAKU Administration Medication Instructions Recorded Amino Acids/Protein Hydrolys 30 ml GT DAILY packet 08/09/15 [Prostat Sugar-Free Packet -] Amlodipine Besylate [Norvasc -] 10 mg GT DAILY tablet 08/09/15 Chlorhexidine Gluconate [Peridex -] 15 ml MM BID cup 08/09/15 Insulin (Levemir) [Levemir Flexpen 25 units SQ HS pen 08/09/15 -] Insulin (Novolog) [Novolog Flexpen 3 units SQ Q6HPO pen 08/09/15 -] Insulin Sliding Scale [Novolog 0 units SQ Q6HPO pen 08/09/15 Vial Sliding Scale -] Lisinopril [Prinivil] 20 mg GT DAILY tablet 10/12/15 Metoprolol Tartrate Injection 5 mg IVPB Q6H PRN #0 vial 08/09/15 [Lopressor Injection -] Metoprolol Tartrate [Lopressor -] 100 mg GT BID tablet 08/09/15 Ondansetron Injection [Zofran 4 mg IVPB Q6H PRN #0 vial 08/09/15 Injection] Pantoprazole Suspension [Protonix 40 mg GT DAILY packet 08/09/15 Packets For Oral Suspension -] Vancomycin Oral Solution 125 mg GT Q6HPO ml 08/09/15 Assessment/Plan: 75 yo M with PMH HTN, DM, inguinal hernia a/w BRBPR and melena with multiple syncopal episodes. Dx with persistent diverticular bleed with R hemicolectomy, course complicated with CVA now in the ICU unresponsive and anoxic brain injury had tracheostomy on 07/23. also s/p PEG placement and iliac artery bleed s /p embolization 09/03/15. received a course of ABx for HCAp in Oct/nov No change in status, lying in bed comfortably 1- s/p Leukocytosis and fever: resolved 2- b/l DVTS s/p IVC filter; anticoagulation is contraindicated due to severe GI bleed 3- GI bleed: resolved 4- anoxic brain injury 5- s/p Trach 07/23. s/p G-tube placement by IR today 6- DM controlled cont insulin with sliding scale , continue Levemir 7- HTN cont antihypertensive meds ; On Norvasc, Lisinipril and metoprolol continue. 8 dislodged G-tube s/p replacement of Gtube By IR 03/08/2016 9- hypernatremia due to dehydration resolved DVT Px: TEds - wound care ELevate HOB above 60 to avoid aspiration Glucerna 1.5 feeding 40cc/hr ---> goal 60cc/hr h20 is getting 50cc/hr -awaiting placement at [facility] facility repeat labs:cbc with diff, cmp, mag, phos.
[2016-04-22] MEDS: INSULIN DETEMIR 100 UNITS/ML MDV SQ SCH (21:59)
[2016-04-23] MEDS: INSULIN SLIDING SCALE (NOVOLOG) 1 VIAL SQ SCH ×2 (06:01→16:26)
[2016-04-23 07:41] LABS: BASOPHIL 0.5 % (0-2.0); EOSINOPHIL 4.1 % (0-4.5); MCH 27.7 pg (25.7-33.7); MCHC 32.5 g/dl (32.0-35.9); MEAN CELL VOLUME 85.1 fl (80-96); NEUTROPHILS 59.8 % (42.8-82.8); PLATELET COUNT 213 K/MM3 (134-434); RDW 16.4 % (11.9-15.9); WHITE BLOOD COUNT 6.5 K/mm3 (4.0-10.0)
[2016-04-23 08:08] LABS: ALBUMIN 3.4 g/dl (3.4-5.0); ANION GAP 8 (8-16); CALCIUM 10.1 mg/dL (8.5-10.1); CO2 30 mmol/L (21-32); GLUCOSE,RANDOM 90 mg/dL (74-106)
[2016-04-23 08:12] LABS: ALK PHOS 138 U/L (45-117); BILIRUBIN,TOTAL 0.3 mg/dL (0.2-1.0); CREATININE 0.8 mg/dL (0.7-1.3); SGOT/AST 42 U/L (15-37); SGPT/ALT 93 U/L (12-78); TOT PROT 7.9 g/dl (6.4-8.2)
[2016-04-23] MEDS: ENOXAPARIN NA (PORCINE) 40 MG/0.4 ML DISP.SYRIN SQ SCH (09:53)
[2016-04-23] MEDS: ZINC SULFATE 220 MG CAPSULE (FP) PO SCH ×2 (09:57→22:26)
[2016-04-23] MEDS: amLODIPine BESYLATE 10 MG TABLET (FP) GT SCH (10:00)
[2016-04-23] MEDS: LISINOPRIL 20 MG TABLET (FP) GT SCH (10:00)
[2016-04-23] MEDS: METOPROLOL TARTRATE 50 MG TABLET (FP) GT SCH ×2 (10:00→22:26)
[2016-04-23] MEDS: AMINO ACIDS/PROTEIN HYDROLYS SUGAR-FREE 30 ML PACKET PO SCH (10:01)
[2016-04-23] MEDS: LACTOBACILLUS ACIDOPHILUS 1 EACH TAB (FP) PO SCH (10:01)
[2016-04-23] MEDS: PANTOPRAZOLE SOD 40 MG SUSPENSION PACKET GT SCH (10:02)
[2016-04-23] MEDS: MULTIVITAMINS THERAPEUTIC GT SCH (10:03)
--- NOTE | 2016-04-23 14:42 | CONSULT ---
Consult - text type - Consultation Consultation Note: Podiatry Consultation: 75 year old M, admitted for almost 1 year, GI bleed complicated with CVA, hypoxic failure. Podiatry consultation sought for elongated, discolored, thickened nails x 10. Patient is not responsive to verbal. Does elicit response from pain. BINA: Pedal pulses palpable, pedal edema bilaterally. Temp gradient WNL, CFT brisk to all toes bilaterally. There are no open wounds on bilateral feet. Digital nails are elongated, discolored, thickened, tender x 10. No paronychia noted, no signs of fungal or bacterial infection. Imp: 75 year old M with onychomycosis 1. Manual debridement of mycotic nails x 10 with nail nipper. Patient tolerated the procedure well. 2. Foot hygiene. 3. Offloading measures. 4. Thank you for the courtesy of this consultation. Kell Garcia DPM
--- NOTE | 2016-04-23 18:58 | PN ---
Progress Note (short form) - Note Progress Note: per nurse patient as increased secretions that requiring suctioning continuously. Vital Signs Temperature 98.8 F 04/23/16 18:00 Pulse Rate 84 04/23/16 18:32 Respiratory Rate 22 04/23/16 18:00 Blood Pressure 140/83 04/23/16 18:00 O2 Sat by Pulse Oximetry (%) 95 04/23/16 18:32 SKIN: Warm, dry, normal turgor, no rashes or lesions noted GENERAL: The patient has periods of somnolence, periods of wakefulness. EYES: Pupils equal, round and reactive to light, sclera anicteric, conjunctiva clear. ENT: Ears normal, Moist mucous membranes. positive for Trach collar, thin. NECK: Normal range of motion, supple without lymphadenopathy, no JVD, or masses. LUNGS: Coarse breath sounds. No wheezes, and no crackles. HEART: Regular rate and rhythm, normal S1 and S2 without murmur, rub or gallop. ABDOMEN: Soft, nontender, normoactive bowel sounds. positive for G-tube EXTREMITIES: 2+ pulses, warm, well-perfused, no edema. NEUROLOGICAL: Unable to assess. SKIN: Wounds not visualized today. CBCD WBC 6.5 K/mm3 (4.0-10.0) 04/23/16 06:15 RBC 3.75 M/mm3 (4.00-5.60) L 04/23/16 06:15 Hgb 10.4 GM/dL (11.7-16.9) L 04/23/16 06:15 Hct 31.9 % (35.4-49) L 04/23/16 06:15 MCV 85.1 fl (80-96) 04/23/16 06:15 MCHC 32.5 g/dl (32.0-35.9) 04/23/16 06:15 RDW 16.4 % (11.9-15.9) H 04/23/16 06:15 Plt Count 213 K/MM3 (134-434) 04/23/16 06:15 MPV 9.0 fl (7.5-11.1) 04/23/16 06:15 CMP Sodium 140 mmol/L (136-145) 04/23/16 06:15 Potassium 3.8 mmol/L (3.5-5.1) 04/23/16 06:15 Chloride 102 mmol/L (98-107) 04/23/16 06:15 Carbon Dioxide 30 mmol/L (21-32) 04/23/16 06:15 Anion Gap 8 (8-16) 04/23/16 06:15 BUN 25 mg/dL (7-18) H 04/23/16 06:15 Creatinine 0.8 mg/dL (0.7-1.3) 04/23/16 06:15 Creat Clearance w eGFR > 60 (>60) 04/23/16 06:15 Random Glucose 90 mg/dL (74-106) D 04/23/16 06:15 Calcium 10.1 mg/dL (8.5-10.1) 04/23/16 06:15 Total Bilirubin 0.3 mg/dL (0.2-1.0) D 04/23/16 06:15 AST 42 U/L (15-37) H 04/23/16 06:15 ALT 93 U/L (12-78) H 04/23/16 06:15 Alkaline Phosphatase 138 U/L (45-117) H 04/23/16 06:15 Total Protein 7.9 g/dl (6.4-8.2) 04/23/16 06:15 Albumin 3.4 g/dl (3.4-5.0) 04/23/16 06:15 CARDIAC ENZYMES Creatine Kinase 62 IU/L (38-174) 06/28/15 09:35 Troponin I 0.07 ng/ml (0.03-0.5) D 07/09/15 05:00 Current Medications Generic Name Dose Route Start Last Admin Trade Name Jaylanq PRN Reason Stop Dose Admin Acetaminophen 650 mg 12/29/15 10:43 04/21/16 09:56 Tylenol Oral Solution - GT 650 mg Q6H PRN Administration FEVER Amino Acids 30 ml 03/01/16 10:00 04/23/16 10:01 Prostat Sugar-Free Packet - PO 30 ml DAILY KWAKU Administration Amlodipine Besylate 10 mg 12/30/15 10:00 04/23/16 10:00 Norvasc - GT 10 mg DAILY KWAKU Administration Enoxaparin Sodium 40 mg 04/19/16 13:15 04/23/16 09:53 Lovenox - SQ 40 mg DAILY KWAKU Administration Guaifenesin 10 ml 12/29/15 10:43 03/17/16 21:49 Robitussin Dm - PO 10 ml Q6H PRN Administration COUGH Ibuprofen 200 mg 12/29/15 10:43 04/03/16 21:38 Motrin Oral Suspension - PO 200 mg Q6H PRN Administration FEVER Insulin Aspart 1 vial 01/28/16 16:30 04/23/16 16:26 Novolog Vial Sliding Scale - SQ Not Given BIDI ON LICENSE OF [facility] Protocol Insulin Detemir 28 units 12/29/15 22:00 04/22/16 21:59 Levemir Vial SQ 28 units HS KWAKU Administration Lactobacillus Acidophilus 1 tab 12/30/15 10:00 04/23/16 10:01 Bacid - PO 1 tab DAILY KWAKU Administration Lisinopril 40 mg 12/30/15 10:00 04/23/16 10:00 Prinivil - GT 40 mg DAILY KWAKU Administration Metoprolol Tartrate 150 mg 12/29/15 22:00 04/23/16 10:00 Lopressor - GT 150 mg BID KWAKU Administration Metoprolol Tartrate 5 mg 12/29/15 10:43 Lopressor Injection - IVPB Q6H PRN HYPERTENSION Multivitamins 5 ml 12/30/15 10:00 04/23/16 10:03 Thera-Plus - GT 5 ml DAILY KWAKU Administration Pantoprazole Sodium 40 mg 12/30/15 10:00 04/23/16 10:02 Protonix Packets For Oral Suspension - GT 40 mg DAILY KWAKU Administration Zinc Sulfate 220 mg 03/31/16 22:00 04/23/16 09:57 Orazinc - PO 220 mg BID KWAKU Administration Assessment/Plan: 75 yo M with PMH HTN, DM, inguinal hernia a/w BRBPR and melena with multiple syncopal episodes. Dx with persistent diverticular bleed with R hemicolectomy, course complicated with CVA now in the ICU unresponsive and anoxic brain injury had tracheostomy on 07/23. also s/p PEG placement and iliac artery bleed s /p embolization 09/03/15. received a course of ABx for HCAp in Oct/nov No change in status, lying in bed comfortably will get CXr r/o congestion 1- s/p Leukocytosis and fever: resolved 2- b/l DVTS s/p IVC filter; anticoagulation is contraindicated due to severe GI bleed 3- GI bleed: resolved 4- anoxic brain injury 5- s/p Trach 07/23. s/p G-tube placement by IR today 6- DM controlled cont insulin with sliding scale , continue Levemir 7- HTN cont antihypertensive meds ; On Norvasc, Lisinipril and metoprolol continue. 8 dislodged G-tube s/p replacement of Gtube By IR 03/08/2016 9- s/p hypernatremia due to dehydration resolved DVT Px: TEds - wound care ELevate HOB above 60 to avoid aspiration Glucerna 1.5 feeding 40cc/hr ---> goal 60cc/hr h20 is getting 50cc/hr -awaiting placement at [facility] facility repeat labs:cbc with diff, cmp, mag, phos.
[2016-04-23] MEDS: INSULIN DETEMIR 100 UNITS/ML MDV SQ SCH (22:26)
[2016-04-24] MEDS: INSULIN SLIDING SCALE (NOVOLOG) 1 VIAL SQ SCH ×2 (06:28→17:12)
[2016-04-24] MEDS: ZINC SULFATE 220 MG CAPSULE (FP) PO SCH ×2 (10:28→21:32)
[2016-04-24] MEDS: PANTOPRAZOLE SOD 40 MG SUSPENSION PACKET GT SCH (10:28)
[2016-04-24] MEDS: METOPROLOL TARTRATE 50 MG TABLET (FP) GT SCH ×2 (10:28→21:32)
[2016-04-24] MEDS: ACETAMINOPHEN 650 MG/20.3 ML ORAL SOLUTION (CUPS) GT PRN (10:28)
[2016-04-24] MEDS: LACTOBACILLUS ACIDOPHILUS 1 EACH TAB (FP) PO SCH (10:28)
[2016-04-24] MEDS: LISINOPRIL 20 MG TABLET (FP) GT SCH (10:29)
[2016-04-24] MEDS: amLODIPine BESYLATE 10 MG TABLET (FP) GT SCH (10:29)
[2016-04-24] MEDS: MULTIVITAMINS THERAPEUTIC GT SCH (10:29)
[2016-04-24] MEDS: AMINO ACIDS/PROTEIN HYDROLYS SUGAR-FREE 30 ML PACKET PO SCH (10:29)
[2016-04-24] MEDS: ENOXAPARIN NA (PORCINE) 40 MG/0.4 ML DISP.SYRIN SQ SCH (10:29)
--- NOTE | 2016-04-24 19:26 | PN ---
Progress Note (short form) - Note Progress Note: comfortably lying in bed with no acute distress. Vital Signs Temperature 98.4 F 04/24/16 17:49 Pulse Rate 78 04/24/16 17:49 Respiratory Rate 22 04/24/16 17:49 Blood Pressure 136/70 04/24/16 17:49 O2 Sat by Pulse Oximetry (%) 98 04/24/16 09:11 SKIN: Warm, dry, normal turgor, no rashes or lesions noted GENERAL: The patient has periods of somnolence, periods of wakefulness. EYES: Pupils equal, round and reactive to light, sclera anicteric, conjunctiva clear. ENT: Ears normal, Moist mucous membranes. positive for Trach collar, thin. NECK: Normal range of motion, supple without lymphadenopathy, no JVD, or masses. LUNGS: Coarse breath sounds. No wheezes, and no crackles. HEART: Regular rate and rhythm, normal S1 and S2 without murmur, rub or gallop. ABDOMEN: Soft, nontender, normoactive bowel sounds. positive for G-tube EXTREMITIES: 2+ pulses, warm, well-perfused, no edema. NEUROLOGICAL: Unable to assess. SKIN: Wounds not visualized today. CBCD WBC 6.5 K/mm3 (4.0-10.0) 04/23/16 06:15 RBC 3.75 M/mm3 (4.00-5.60) L 04/23/16 06:15 Hgb 10.4 GM/dL (11.7-16.9) L 04/23/16 06:15 Hct 31.9 % (35.4-49) L 04/23/16 06:15 MCV 85.1 fl (80-96) 04/23/16 06:15 MCHC 32.5 g/dl (32.0-35.9) 04/23/16 06:15 RDW 16.4 % (11.9-15.9) H 04/23/16 06:15 Plt Count 213 K/MM3 (134-434) 04/23/16 06:15 MPV 9.0 fl (7.5-11.1) 04/23/16 06:15 CMP Sodium 140 mmol/L (136-145) 04/23/16 06:15 Potassium 3.8 mmol/L (3.5-5.1) 04/23/16 06:15 Chloride 102 mmol/L (98-107) 04/23/16 06:15 Carbon Dioxide 30 mmol/L (21-32) 04/23/16 06:15 Anion Gap 8 (8-16) 04/23/16 06:15 BUN 25 mg/dL (7-18) H 04/23/16 06:15 Creatinine 0.8 mg/dL (0.7-1.3) 04/23/16 06:15 Creat Clearance w eGFR > 60 (>60) 04/23/16 06:15 Random Glucose 90 mg/dL (74-106) D 04/23/16 06:15 Calcium 10.1 mg/dL (8.5-10.1) 04/23/16 06:15 Total Bilirubin 0.3 mg/dL (0.2-1.0) D 04/23/16 06:15 AST 42 U/L (15-37) H 04/23/16 06:15 ALT 93 U/L (12-78) H 04/23/16 06:15 Alkaline Phosphatase 138 U/L (45-117) H 04/23/16 06:15 Total Protein 7.9 g/dl (6.4-8.2) 04/23/16 06:15 Albumin 3.4 g/dl (3.4-5.0) 04/23/16 06:15 CARDIAC ENZYMES Creatine Kinase 62 IU/L (38-174) 06/28/15 09:35 Troponin I 0.07 ng/ml (0.03-0.5) D 07/09/15 05:00 Current Medications Generic Name Dose Route Start Last Admin Trade Name Ginette PRN Reason Stop Dose Admin Acetaminophen 650 mg 12/29/15 10:43 04/24/16 10:28 Tylenol Oral Solution - GT 650 mg Q6H PRN Administration FEVER Amino Acids 30 ml 03/01/16 10:00 04/24/16 10:29 Prostat Sugar-Free Packet - PO 30 ml DAILY KWAKU Administration Amlodipine Besylate 10 mg 12/30/15 10:00 04/24/16 10:29 Norvasc - GT 10 mg DAILY KWAKU Administration Enoxaparin Sodium 40 mg 04/19/16 13:15 04/24/16 10:29 Lovenox - SQ 40 mg DAILY KWAKU Administration Guaifenesin 10 ml 12/29/15 10:43 03/17/16 21:49 Robitussin Dm - PO 10 ml Q6H PRN Administration COUGH Ibuprofen 200 mg 12/29/15 10:43 04/03/16 21:38 Motrin Oral Suspension - PO 200 mg Q6H PRN Administration FEVER Insulin Aspart 1 vial 01/28/16 16:30 04/24/16 17:12 Novolog Vial Sliding Scale - SQ Not Given BIDI [facility] Protocol Insulin Detemir 28 units 12/29/15 22:00 04/23/16 22:26 Levemir Vial SQ 28 units HS KWAKU Administration Lactobacillus Acidophilus 1 tab 12/30/15 10:00 04/24/16 10:28 Bacid - PO 1 tab DAILY KWAKU Administration Lisinopril 40 mg 12/30/15 10:00 04/24/16 10:29 Prinivil - GT 40 mg DAILY KWAKU Administration Metoprolol Tartrate 150 mg 12/29/15 22:00 04/24/16 10:28 Lopressor - GT 150 mg BID KWAKU Administration Metoprolol Tartrate 5 mg 12/29/15 10:43 Lopressor Injection - IVPB Q6H PRN HYPERTENSION Multivitamins 5 ml 12/30/15 10:00 04/24/16 10:29 Thera-Plus - GT 5 ml DAILY KWAKU Administration Pantoprazole Sodium 40 mg 12/30/15 10:00 04/24/16 10:28 Protonix Packets For Oral Suspension - GT 40 mg DAILY KWAKU Administration Zinc Sulfate 220 mg 03/31/16 22:00 04/24/16 10:28 Orazinc - PO 220 mg BID KWAKU Administration Medication Instructions Recorded Amino Acids/Protein Hydrolys 30 ml GT DAILY packet 08/09/15 [Prostat Sugar-Free Packet -] Amlodipine Besylate [Norvasc -] 10 mg GT DAILY tablet 08/09/15 Chlorhexidine Gluconate [Peridex -] 15 ml MM BID cup 08/09/15 Insulin (Levemir) [Levemir Flexpen 25 units SQ HS pen 08/09/15 -] Insulin (Novolog) [Novolog Flexpen 3 units SQ Q6HPO pen 08/09/15 -] Insulin Sliding Scale [Novolog 0 units SQ Q6HPO pen 08/09/15 Vial Sliding Scale -] Lisinopril [Prinivil] 20 mg GT DAILY tablet 08/09/15 Metoprolol Tartrate Injection 5 mg IVPB Q6H PRN #0 vial 08/09/15 [Lopressor Injection -] Metoprolol Tartrate [Lopressor -] 100 mg GT BID tablet 08/09/15 Ondansetron Injection [Zofran 4 mg IVPB Q6H PRN #0 vial 08/09/15 Injection] Pantoprazole Suspension [Protonix 40 mg GT DAILY packet 08/09/15 Packets For Oral Suspension -] Vancomycin Oral Solution 125 mg GT Q6HPO ml 08/09/15 Assessment/Plan: 75 yo M with PMH HTN, DM, inguinal hernia a/w BRBPR and melena with multiple syncopal episodes. Dx with persistent diverticular bleed with R hemicolectomy, course complicated with CVA now in the ICU unresponsive and anoxic brain injury had tracheostomy on 07/23. also s/p PEG placement and iliac artery bleed s /p embolization 09/03/15. received a course of ABx for HCAp in Oct/nov No change in status, lying in bed comfortably will get CXr r/o congestion 1- s/p Leukocytosis and fever: resolved 2- b/l DVTS s/p IVC filter; anticoagulation is contraindicated due to severe GI bleed 3- GI bleed: resolved 4- anoxic brain injury 5- s/p Trach 07/23. s/p G-tube placement by IR today 6- DM controlled cont insulin with sliding scale , continue Levemir 7- HTN cont antihypertensive meds ; On Norvasc, Lisinipril and metoprolol continue. 8 dislodged G-tube s/p replacement of Gtube By IR 03/08/2016 9- s/p hypernatremia due to dehydration resolved DVT Px: TEds - wound care Prostat is discontinued, weekly weights ELevate HOB above 60 to avoid aspiration Glucerna 1.5 feeding 40cc/hr ---> goal 60cc/hr h20 is getting 50cc/hr -awaiting placement at [facility] facility repeat labs:cbc with diff, cmp, mag, phos.
[2016-04-24] MEDS: INSULIN DETEMIR 100 UNITS/ML MDV SQ SCH (21:33)
[2016-04-25] MEDS: INSULIN SLIDING SCALE (NOVOLOG) 1 VIAL SQ SCH ×2 (06:00→17:42)
[2016-04-25] MEDS: METOPROLOL TARTRATE 50 MG TABLET (FP) GT SCH ×2 (09:13→22:01)
[2016-04-25] MEDS: LACTOBACILLUS ACIDOPHILUS 1 EACH TAB (FP) PO SCH (09:14)
[2016-04-25] MEDS: LISINOPRIL 20 MG TABLET (FP) GT SCH (09:14)
[2016-04-25] MEDS: PANTOPRAZOLE SOD 40 MG SUSPENSION PACKET GT SCH (09:14)
[2016-04-25] MEDS: ENOXAPARIN NA (PORCINE) 40 MG/0.4 ML DISP.SYRIN SQ SCH (09:14)
[2016-04-25] MEDS: amLODIPine BESYLATE 10 MG TABLET (FP) GT SCH (09:14)
[2016-04-25] MEDS: ZINC SULFATE 220 MG CAPSULE (FP) PO SCH ×2 (09:14→22:01)
[2016-04-25] MEDS: MULTIVITAMINS THERAPEUTIC GT SCH (09:14)
--- NOTE | 2016-04-25 19:51 | PN ---
Progress Note (short form) - Note Progress Note: patient is lying in bed with no acute distress. Vital Signs Temperature 98.8 F 04/25/16 17:20 Pulse Rate 69 04/25/16 17:20 Respiratory Rate 22 04/25/16 17:20 Blood Pressure 132/71 04/25/16 17:20 O2 Sat by Pulse Oximetry (%) 97 04/25/16 09:36 SKIN: Warm, dry, normal turgor, no rashes or lesions noted GENERAL: The patient has periods of somnolence, periods of wakefulness. EYES: Pupils equal, round and reactive to light, sclera anicteric, conjunctiva clear. ENT: Ears normal, Moist mucous membranes. positive for Trach collar, thin. NECK: Normal range of motion, supple without lymphadenopathy, no JVD, or masses. LUNGS: Coarse breath sounds. No wheezes, and no crackles. HEART: Regular rate and rhythm, normal S1 and S2 without murmur, rub or gallop. ABDOMEN: Soft, nontender, normoactive bowel sounds. positive for G-tube EXTREMITIES: 2+ pulses, warm, well-perfused, no edema. NEUROLOGICAL: Unable to assess. SKIN: Wounds not visualized today. CBCD WBC 6.5 K/mm3 (4.0-10.0) 04/23/16 06:15 RBC 3.75 M/mm3 (4.00-5.60) L 04/23/16 06:15 Hgb 10.4 GM/dL (11.7-16.9) L 04/23/16 06:15 Hct 31.9 % (35.4-49) L 04/23/16 06:15 MCV 85.1 fl (80-96) 04/23/16 06:15 MCHC 32.5 g/dl (32.0-35.9) 04/23/16 06:15 RDW 16.4 % (11.9-15.9) H 04/23/16 06:15 Plt Count 213 K/MM3 (134-434) 04/23/16 06:15 MPV 9.0 fl (7.5-11.1) 04/23/16 06:15 CMP Sodium 140 mmol/L (136-145) 04/23/16 06:15 Potassium 3.8 mmol/L (3.5-5.1) 04/23/16 06:15 Chloride 102 mmol/L (98-107) 04/23/16 06:15 Carbon Dioxide 30 mmol/L (21-32) 04/23/16 06:15 Anion Gap 8 (8-16) 04/23/16 06:15 BUN 25 mg/dL (7-18) H 04/23/16 06:15 Creatinine 0.8 mg/dL (0.7-1.3) 04/23/16 06:15 Creat Clearance w eGFR > 60 (>60) 04/23/16 06:15 Random Glucose 90 mg/dL (74-106) D 04/23/16 06:15 Calcium 10.1 mg/dL (8.5-10.1) 04/23/16 06:15 Total Bilirubin 0.3 mg/dL (0.2-1.0) D 04/23/16 06:15 AST 42 U/L (15-37) H 04/23/16 06:15 ALT 93 U/L (12-78) H 04/23/16 06:15 Alkaline Phosphatase 138 U/L (45-117) H 04/23/16 06:15 Total Protein 7.9 g/dl (6.4-8.2) 04/23/16 06:15 Albumin 3.4 g/dl (3.4-5.0) 04/23/16 06:15 CARDIAC ENZYMES Creatine Kinase 62 IU/L (38-174) 06/28/15 09:35 Troponin I 0.07 ng/ml (0.03-0.5) D 07/09/15 05:00 Current Medications Generic Name Dose Route Start Last Admin Trade Name Jaylanq PRN Reason Stop Dose Admin Acetaminophen 650 mg 12/29/15 10:43 04/24/16 10:28 Tylenol Oral Solution - GT 650 mg Q6H PRN Administration FEVER Amlodipine Besylate 10 mg 12/30/15 10:00 04/25/16 09:14 Norvasc - GT 10 mg DAILY KWAKU Administration Enoxaparin Sodium 40 mg 04/19/16 13:15 04/25/16 09:14 Lovenox - SQ 40 mg DAILY KWAKU Administration Guaifenesin 10 ml 12/29/15 10:43 03/17/16 21:49 Robitussin Dm - PO 10 ml Q6H PRN Administration COUGH Ibuprofen 200 mg 12/29/15 10:43 04/03/16 21:38 Motrin Oral Suspension - PO 200 mg Q6H PRN Administration FEVER Insulin Aspart 1 vial 01/28/16 16:30 04/25/16 17:42 Novolog Vial Sliding Scale - SQ Not Given BIDI [facility] Protocol Insulin Detemir 28 units 12/29/15 22:00 04/24/16 21:33 Levemir Vial SQ 28 units HS KWAKU Administration Lactobacillus Acidophilus 1 tab 12/30/15 10:00 04/25/16 09:14 Bacid - PO 1 tab DAILY KWAKU Administration Lisinopril 40 mg 12/30/15 10:00 04/25/16 09:14 Prinivil - GT 40 mg DAILY KWAKU Administration Metoprolol Tartrate 150 mg 12/29/15 22:00 04/25/16 09:13 Lopressor - GT 150 mg BID KWAKU Administration Metoprolol Tartrate 5 mg 12/29/15 10:43 Lopressor Injection - IVPB Q6H PRN HYPERTENSION Multivitamins 5 ml 12/30/15 10:00 04/25/16 09:14 Thera-Plus - GT 5 ml DAILY KWAKU Administration Pantoprazole Sodium 40 mg 12/30/15 10:00 04/25/16 09:14 Protonix Packets For Oral Suspension - GT 40 mg DAILY KWAKU Administration Zinc Sulfate 220 mg 03/31/16 22:00 04/25/16 09:14 Orazinc - PO 220 mg BID KWAKU Administration Assessment/Plan: 75 yo M with PMH HTN, DM, inguinal hernia a/w BRBPR and melena with multiple syncopal episodes. Dx with persistent diverticular bleed with R hemicolectomy, course complicated with CVA now in the ICU unresponsive and anoxic brain injury had tracheostomy on 07/23. also s/p PEG placement and iliac artery bleed s /p embolization 09/03/15. received a course of ABx for HCAp in Oct/nov No change in status, lying in bed comfortably 1- s/p Leukocytosis and fever: resolved 2- b/l DVTS s/p IVC filter; anticoagulation is contraindicated due to severe GI bleed 3- GI bleed: resolved 4- anoxic brain injury 5- s/p Trach 07/23. s/p G-tube placement by IR today 6- DM controlled cont insulin with sliding scale , continue Levemir 7- HTN cont antihypertensive meds ; On Norvasc, Lisinipril and metoprolol continue. 8 dislodged G-tube s/p replacement of Gtube By IR 03/08/2016 9- s/p hypernatremia due to dehydration resolved DVT Px: TEds - wound care Prostat is discontinued, weekly weights ELevate HOB above 60 to avoid aspiration Glucerna 1.5 feeding 40cc/hr ---> goal 60cc/hr h20 is getting 50cc/hr -awaiting placement at [facility] facility
[2016-04-25] MEDS: INSULIN DETEMIR 100 UNITS/ML MDV SQ SCH (22:00)
[2016-04-26] MEDS: INSULIN SLIDING SCALE (NOVOLOG) 1 VIAL SQ SCH ×2 (07:00→19:04)
[2016-04-26] MEDS: LISINOPRIL 20 MG TABLET (FP) GT SCH (11:20)
[2016-04-26] MEDS: LACTOBACILLUS ACIDOPHILUS 1 EACH TAB (FP) PO SCH (11:21)
[2016-04-26] MEDS: PANTOPRAZOLE SOD 40 MG SUSPENSION PACKET GT SCH (11:21)
[2016-04-26] MEDS: METOPROLOL TARTRATE 50 MG TABLET (FP) GT SCH ×2 (11:21→22:23)
[2016-04-26] MEDS: MULTIVITAMINS THERAPEUTIC GT SCH (11:21)
[2016-04-26] MEDS: ENOXAPARIN NA (PORCINE) 40 MG/0.4 ML DISP.SYRIN SQ SCH (11:21)
[2016-04-26] MEDS: ZINC SULFATE 220 MG CAPSULE (FP) PO SCH ×2 (11:22→22:23)
[2016-04-26] MEDS: amLODIPine BESYLATE 10 MG TABLET (FP) GT SCH (11:34)
--- NOTE | 2016-04-26 19:41 | PN ---
Progress Note (short form) - Note Progress Note: Subjective: unable to obtain hx. Objective: Last Vital Signs Temp Pulse Resp BP Pulse Ox 98.2 F 75 20 132/84 98 04/26/16 19:09 04/26/16 19:09 04/26/16 19:09 04/26/16 19:04/26/16 09:00 ext: no edema abd: soft, NT, ND , nl BS. PEG in place , with no erythema or discharge CV: RRR Lungs: CTAB Laboratory Results - last 24 hr 04/26/16 04/26/16 06:02 17:33 POC Glucometer 130 136 Assessment/Plan: 75 yo M with PMH HTN, DM, inguinal hernia a/w BRBPR and melena with multiple syncopal episodes. Dx with persistent diverticular bleed with R hemicolectomy, course complicated with CVA now in the ICU unresponsive and anoxic brain injury had tracheostomy on 07/23. also s/p PEG placement and iliac artery bleed s /p embolization 09/03/15. received a course of ABx for HCAp in Oct/nov 1- fever: resolved 2- b/l DVTS s/p IVC filter 3- GI bleed: resolved 4- anoxic brain injury 5- s/p Trach 07/23. s/p PEG 6- DM . 7- HTN 8- LFTS abn: elevayed Alk Phos 9- hypernatremia resolved Plan: - cont TF - cont antihypertensive meds - cont insulin - SCDs - wound care
[2016-04-26] MEDS: INSULIN DETEMIR 100 UNITS/ML MDV SQ SCH (22:22)
[2016-04-27] MEDS: INSULIN SLIDING SCALE (NOVOLOG) 1 VIAL SQ SCH ×2 (06:34→16:59)
[2016-04-27] MEDS: LISINOPRIL 20 MG TABLET (FP) GT SCH (10:14)
[2016-04-27] MEDS: amLODIPine BESYLATE 10 MG TABLET (FP) GT SCH (10:14)
[2016-04-27] MEDS: ZINC SULFATE 220 MG CAPSULE (FP) PO SCH ×2 (10:14→22:13)
[2016-04-27] MEDS: LACTOBACILLUS ACIDOPHILUS 1 EACH TAB (FP) PO SCH (10:14)
[2016-04-27] MEDS: METOPROLOL TARTRATE 50 MG TABLET (FP) GT SCH ×2 (10:14→22:13)
[2016-04-27] MEDS: PANTOPRAZOLE SOD 40 MG SUSPENSION PACKET GT SCH (10:15)
[2016-04-27] MEDS: MULTIVITAMINS THERAPEUTIC GT SCH (10:15)
--- NOTE | 2016-04-27 18:02 | PN ---
Progress Note (short form) - Note Progress Note: Subjective: unable to obtain hx Last Vital Signs Temp Pulse Resp BP Pulse Ox 99.2 F 77 22 131/94 95 04/27/16 14:16 04/27/16 14:16 04/27/16 14:16 04/27/16 14:16 04/27/16 14:02 Laboratory Results - last 24 hr 04/27/16 04/27/16 05:23 16:54 POC Glucometer 125 122 PE : ext: no edema abd: soft, NT, ND , nl BS. PEG in place , with no erythema or discharge CV: RRR Lungs: CTAB Assessment/Plan: 75 yo M with PMH HTN, DM, inguinal hernia a/w BRBPR and melena with multiple syncopal episodes. Dx with persistent diverticular bleed with R hemicolectomy, course complicated with CVA now in the ICU unresponsive and anoxic brain injury had tracheostomy on 07/23. also s/p PEG placement and iliac artery bleed s /p embolization 09/03/15. received a course of ABx for HCAp in Oct/nov 1- fever: resolved 2- b/l DVTS s/p IVC filter 3- GI bleed: resolved 4- anoxic brain injury 5- s/p Trach 07/23. s/p PEG 6- DM . 7- HTN 8- LFTS abn: elevayed Alk Phos 9- hypernatremia resolved Plan: - cont TF - cont antihypertensive meds - cont insulin - SCDs - wound care
[2016-04-27] MEDS: INSULIN DETEMIR 100 UNITS/ML MDV SQ SCH (22:14)
[2016-04-28] MEDS: INSULIN SLIDING SCALE (NOVOLOG) 1 VIAL SQ SCH ×2 (06:11→17:43)
[2016-04-28] MEDS: ZINC SULFATE 220 MG CAPSULE (FP) PO SCH ×2 (11:01→21:49)
[2016-04-28] MEDS: amLODIPine BESYLATE 10 MG TABLET (FP) GT SCH (11:01)
[2016-04-28] MEDS: LISINOPRIL 20 MG TABLET (FP) GT SCH (11:01)
[2016-04-28] MEDS: METOPROLOL TARTRATE 50 MG TABLET (FP) GT SCH ×2 (11:01→21:49)
[2016-04-28] MEDS: PANTOPRAZOLE SOD 40 MG SUSPENSION PACKET GT SCH (11:01)
[2016-04-28] MEDS: LACTOBACILLUS ACIDOPHILUS 1 EACH TAB (FP) PO SCH (11:01)
[2016-04-28] MEDS: MULTIVITAMINS THERAPEUTIC GT SCH (11:02)
--- NOTE | 2016-04-28 13:03 | PN ---
Progress Note (short form) - Note Progress Note: Subjective: unable to obtain hx Last Vital Signs Temp Pulse Resp BP Pulse Ox 98.9 F 60 20 138/52 95 04/28/16 06:00 04/28/16 06:00 04/28/16 06:00 04/28/16 06:00 04/27/16 21:00 Laboratory Results - last 24 hr 04/27/16 04/27/16 04/28/16 05:23 16:54 05:37 POC Glucometer 125 122 126 PE : ext: no edema abd: soft, NT, ND , nl BS. PEG in place , with no erythema or discharge CV: RRR Lungs: CTAB Assessment/Plan: 75 yo M with PMH HTN, DM, inguinal hernia a/w BRBPR and melena with multiple syncopal episodes. Dx with persistent diverticular bleed with R hemicolectomy, course complicated with CVA now in the ICU unresponsive and anoxic brain injury had tracheostomy on 07/23. also s/p PEG placement and iliac artery bleed s /p embolization 09/03/15. received a course of ABx for HCAp in Oct/nov 1- fever: resolved 2- b/l DVTS s/p IVC filter 3- GI bleed: resolved 4- anoxic brain injury 5- s/p Trach 07/23. s/p PEG 6- DM . 7- HTN 8- LFTS abn 9- hypernatremia resolved Plan: - cont TF - cont antihypertensive meds - cont insulin - SCDs - wound care
[2016-04-28] MEDS: INSULIN DETEMIR 100 UNITS/ML MDV SQ SCH (21:57)
[2016-04-29] MEDS: INSULIN SLIDING SCALE (NOVOLOG) 1 VIAL SQ SCH ×2 (06:06→17:19)
[2016-04-29] MEDS: METOPROLOL TARTRATE 50 MG TABLET (FP) GT SCH ×2 (11:08→21:53)
[2016-04-29] MEDS: amLODIPine BESYLATE 10 MG TABLET (FP) GT SCH (11:08)
[2016-04-29] MEDS: LACTOBACILLUS ACIDOPHILUS 1 EACH TAB (FP) PO SCH (11:08)
[2016-04-29] MEDS: PANTOPRAZOLE SOD 40 MG SUSPENSION PACKET GT SCH (11:09)
[2016-04-29] MEDS: LISINOPRIL 20 MG TABLET (FP) GT SCH (11:09)
[2016-04-29] MEDS: MULTIVITAMINS THERAPEUTIC GT SCH (11:09)
[2016-04-29] MEDS: ZINC SULFATE 220 MG CAPSULE (FP) PO SCH ×2 (11:09→21:53)
--- NOTE | 2016-04-29 15:44 | PN ---
Progress Note (short form) - Note Progress Note: Subjective: unable to obtain hx. no events Last Vital Signs Temp Pulse Resp BP Pulse Ox 98.9 F 73 20 144/91 99 04/29/16 15:12 04/29/16 15:12 04/29/16 15:12 04/29/16 15:12 04/29/16 09:00 Laboratory Results - last 24 hr 04/28/16 04/28/16 04/29/16 16:40 21:50 05:21 POC Glucometer 125 133 118 PE : ext: no edema abd: soft, NT, ND , nl BS. PEG in place , with no erythema or discharge CV: RRR Lungs: CTAB anteriorly Assessment/Plan: 75 yo M with PMH HTN, DM, inguinal hernia a/w BRBPR and melena with multiple syncopal episodes. Dx with persistent diverticular bleed with R hemicolectomy, course complicated with CVA now in the ICU unresponsive and anoxic brain injury had tracheostomy on 07/23. also s/p PEG placement and iliac artery bleed s /p embolization 09/03/15. received a course of ABx for HCAp in Oct/nov 1- fever: resolved 2- b/l DVTS s/p IVC filter 3- GI bleed: resolved 4- anoxic brain injury 5- s/p Trach 07/23. s/p PEG 6- DM . 7- HTN 8- LFTS abn 9- hypernatremia resolved Plan: - cont TF - cont antihypertensive meds - cont insulin - SCDs . no SQ heparin or lovenox due to h/o spontaneous gluteal bled and severe GI bleed - wound care
[2016-04-29] MEDS: INSULIN DETEMIR 100 UNITS/ML MDV SQ SCH (21:52)
[2016-04-30] MEDS: INSULIN SLIDING SCALE (NOVOLOG) 1 VIAL SQ SCH ×2 (06:46→18:10)
[2016-04-30] MEDS: ZINC SULFATE 220 MG CAPSULE (FP) PO SCH ×2 (09:47→21:09)
[2016-04-30] MEDS: MULTIVITAMINS THERAPEUTIC GT SCH (09:47)
[2016-04-30] MEDS: amLODIPine BESYLATE 10 MG TABLET (FP) GT SCH (09:47)
[2016-04-30] MEDS: LISINOPRIL 20 MG TABLET (FP) GT SCH (09:47)
[2016-04-30] MEDS: PANTOPRAZOLE SOD 40 MG SUSPENSION PACKET GT SCH (09:47)
[2016-04-30] MEDS: LACTOBACILLUS ACIDOPHILUS 1 EACH TAB (FP) PO SCH (09:47)
[2016-04-30] MEDS: METOPROLOL TARTRATE 50 MG TABLET (FP) GT SCH ×2 (09:47→21:08)
--- NOTE | 2016-04-30 15:53 | PN ---
Progress Note (short form) - Note Progress Note: Subjective: unable to obtain hx. pt vomited twice today . non bloody evidence Last Vital Signs Temp Pulse Resp BP Pulse Ox 97.4 F L 85 18 142/96 97 04/30/16 15:11 04/30/16 15:11 04/30/16 15:11 04/30/16 15:11 04/30/16 10:35 Laboratory Results - last 24 hr 04/29/16 04/29/16 04/30/16 17:13 21:08 05:52 POC Glucometer 126 139 149 PE : ext: no edema abd: soft, NT, slightly more ditended than before , nl BS. PEG in place , with no erythema or discharge CV: RRR Lungs: Course breath sounds b/l Assessment/Plan: 75 yo M with PMH HTN, DM, inguinal hernia a/w BRBPR and melena with multiple syncopal episodes. Dx with persistent diverticular bleed with R hemicolectomy, course complicated with CVA now in the ICU unresponsive and anoxic brain injury had tracheostomy on 07/23. also s/p PEG placement and iliac artery bleed s /p embolization 09/03/15. received a course of ABx for HCAp in Oct/nov 1- fever: resolved 2- b/l DVTS s/p IVC filter 3- GI bleed: resolved 4- anoxic brain injury 5- s/p Trach 07/23. s/p PEG 6- DM . 7- HTN 8- LFTS abn 9- hypernatremia resolved 10 - vomiting Plan: - unclear why pt is vomiting . ABd is slightly distended than before . will get KUB, and hold feeds for now , till ileus is ro - check CMP, CBC - cont antihypertensive meds - cont insulin . if we are to hold TF longer will decrease insulin dosing . - give 17 units of levemir toight as insulin was held for feew hours - SCDs . no SQ heparin or lovenox due to h/o spontaneous gluteal bled and severe GI bleed - wound care
[2016-04-30 17:45] LABS: MCH 27.6 pg (25.7-33.7); MCHC 32.7 g/dl (32.0-35.9); MEAN CELL VOLUME 84.3 fl (80-96); MEAN PLT VOLUME 10.1 fl (7.5-11.1); RDW 16.5 % (11.9-15.9); WHITE BLOOD COUNT 12.4 K/mm3 (4.0-10.0)
[2016-04-30 18:08] LABS: ALK PHOS 132 U/L (45-117); ANION GAP 8 (8-16); BILIRUBIN,TOTAL 0.4 mg/dL (0.2-1.0); CALCIUM 10.7 mg/dL (8.5-10.1); CO2 29 mmol/L (21-32); CREATININE 0.9 mg/dL (0.7-1.3); GLUCOSE,RANDOM 186 mg/dL (74-106); SGOT/AST 29 U/L (15-37); SGPT/ALT 84 U/L (12-78); TOT PROT 8.9 g/dl (6.4-8.2)
[2016-04-30 18:52] LABS: PLATELET ESTIMATE ADEQUATE (NORMAL)
[2016-05-01] MEDS: INSULIN SLIDING SCALE (NOVOLOG) 1 VIAL SQ SCH ×2 (06:45→15:55)
[2016-05-01] MEDS: PANTOPRAZOLE SOD 40 MG SUSPENSION PACKET GT SCH (09:55)
[2016-05-01] MEDS: LISINOPRIL 20 MG TABLET (FP) GT SCH (09:55)
[2016-05-01] MEDS: METOPROLOL TARTRATE 50 MG TABLET (FP) GT SCH ×2 (09:55→21:55)
[2016-05-01] MEDS: LACTOBACILLUS ACIDOPHILUS 1 EACH TAB (FP) PO SCH (09:55)
[2016-05-01] MEDS: ZINC SULFATE 220 MG CAPSULE (FP) PO SCH ×2 (09:55→21:55)
[2016-05-01] MEDS: MULTIVITAMINS THERAPEUTIC GT SCH (09:56)
[2016-05-01] MEDS: amLODIPine BESYLATE 10 MG TABLET (FP) GT SCH (09:56)
--- NOTE | 2016-05-01 15:53 | PN ---
Progress Note (short form) - Note Progress Note: Subjective: unable to obtain hx. pt vomited twice today . non bloody evidence Last Vital Signs Temp Pulse Resp BP Pulse Ox 100.2 F H 93 H 22 131/81 96 05/01/16 14:59 05/01/16 14:59 05/01/16 14:59 05/01/16 14:59 05/01/16 10:22 Laboratory Results - last 24 hr 04/30/16 04/30/16 04/30/16 17:00 17:00 17:24 WBC 12.4 H D RBC 4.25 Hgb 11.7 D Hct 35.8 MCV 84.3 MCHC 32.7 RDW 16.5 H Plt Count Y MPV 10.1 D Neutrophils % 90.0 H D Lymphocytes % 4.0 L D Monocytes % 4.0 Differential Comment Slt plt clumping Reactive Lymphocytes 2 Platelet Estimate Adequate Sodium 140 Potassium 3.8 Chloride 103 Carbon Dioxide 29 Anion Gap 8 BUN 23 H Creatinine 0.9 Creat Clearance w eGFR > 60 POC Glucometer 187 Random Glucose 186 H D Calcium 10.7 H Total Bilirubin 0.4 D AST 29 D ALT 84 H Alkaline Phosphatase 132 H Total Protein 8.9 H Albumin 4.0 04/30/16 05/01/16 05/01/16 21:20 00:12 03:17 WBC RBC Hgb Hct MCV MCHC RDW Plt Count MPV Neutrophils % Lymphocytes % Monocytes % Differential Comment Reactive Lymphocytes Platelet Estimate Sodium Potassium Chloride Carbon Dioxide Anion Gap BUN Creatinine Creat Clearance w eGFR POC Glucometer 138 152 147 Random Glucose Calcium Total Bilirubin AST ALT Alkaline Phosphatase Total Protein Albumin 05/01/16 06:25 WBC RBC Hgb Hct MCV MCHC RDW Plt Count MPV Neutrophils % Lymphocytes % Monocytes % Differential Comment Reactive Lymphocytes Platelet Estimate Sodium Potassium Chloride Carbon Dioxide Anion Gap BUN Creatinine Creat Clearance w eGFR POC Glucometer 110 Random Glucose Calcium Total Bilirubin AST ALT Alkaline Phosphatase Total Protein Albumin PE : ext: no edema abd: soft, NT, no distention, nl BS. PEG in place , with no erythema or discharge CV: RRR Lungs: Course breath sounds b/l Assessment/Plan: 75 yo M with PMH HTN, DM, inguinal hernia a/w BRBPR and melena with multiple syncopal episodes. Dx with persistent diverticular bleed with R hemicolectomy, course complicated with CVA now in the ICU unresponsive and anoxic brain injury had tracheostomy on 07/23. also s/p PEG placement and iliac artery bleed s /p embolization 09/03/15. received a course of ABx for HCAp in 1- fever: returned 2- b/l DVTS s/p IVC filter 3- GI bleed: resolved 4- anoxic brain injury 5- s/p Trach 07/23. s/p PEG 6- DM . 7- HTN 8- LFTS abn 9- hypernatremia resolved 10 - vomiting : again last night Plan: - uncelar etiology for vomiting . KUB with no ileus or obstruction . will try to resume TF again . check US of liver , also need to check Cxray to r/o aspiration PNA as now has fever , and leukocytosis after vomiting . - repeat CBC today - cont antihypertensive meds - was started on D5 early this am as TF were held, now GBM 136. will stop IVF , resume TF. if vomits again , will hold TF and resume IVF - hold lantus tonight ( was on 28 u HS , last night got 17 , dose tomorrow wo be determined ) - SCDs . no SQ heparin or lovenox due to h/o spontaneous gluteal bled and severe GI bleed - wound care
[2016-05-01 16:43] LABS: BASOPHIL 0.4 % (0-2.0); EOSINOPHIL 4.3 % (0-4.5); MCH 27.8 pg (25.7-33.7); MCHC 32.8 g/dl (32.0-35.9); MEAN CELL VOLUME 84.9 fl (80-96); MEAN PLT VOLUME 9.6 fl (7.5-11.1); NEUTROPHILS 54.2 % (42.8-82.8); PLATELET COUNT 202 K/MM3 (134-434); RDW 16.6 % (11.9-15.9); WHITE BLOOD COUNT 6.7 K/mm3 (4.0-10.0)
[2016-05-01] MEDS: SCOPOLAMINE HYDROBROMIDE 1 PATCH PATCH.TD72 TD SCH (18:32)
[2016-05-02] MEDS: INSULIN SLIDING SCALE (NOVOLOG) 1 VIAL SQ SCH ×2 (06:31→17:58)
[2016-05-02 08:39] LABS: BASOPHIL 0.6 % (0-2.0); EOSINOPHIL 4.4 % (0-4.5); MCH 27.7 pg (25.7-33.7); MCHC 32.3 g/dl (32.0-35.9); MEAN CELL VOLUME 85.8 fl (80-96); NEUTROPHILS 60.5 % (42.8-82.8); PLATELET COUNT 184 K/MM3 (134-434); RDW 16.2 % (11.9-15.9); WHITE BLOOD COUNT 7.7 K/mm3 (4.0-10.0)
[2016-05-02] MEDS: PANTOPRAZOLE SOD 40 MG SUSPENSION PACKET GT SCH (10:52)
[2016-05-02] MEDS: LACTOBACILLUS ACIDOPHILUS 1 EACH TAB (FP) PO SCH (10:52)
[2016-05-02] MEDS: MULTIVITAMINS THERAPEUTIC GT SCH (10:52)
[2016-05-02] MEDS: LISINOPRIL 20 MG TABLET (FP) GT SCH (10:52)
[2016-05-02] MEDS: amLODIPine BESYLATE 10 MG TABLET (FP) GT SCH (10:52)
[2016-05-02] MEDS: METOPROLOL TARTRATE 50 MG TABLET (FP) GT SCH ×2 (10:52→22:03)
[2016-05-02] MEDS: ZINC SULFATE 220 MG CAPSULE (FP) PO SCH ×2 (10:52→22:03)
--- NOTE | 2016-05-02 11:43 | PN ---
Progress Note (short form) - Note Progress Note: Subjective: Pt seen and examined at bedside. He is non-verbal. He vomited twice yesterday. Tmax 100.2 yesterday Current Medications Generic Name Dose Route Start Last Admin Trade Name Freq PRN Reason Stop Dose Admin Acetaminophen 650 mg 12/29/15 10:43 04/24/16 10:28 Tylenol Oral Solution - GT 650 mg Q6H PRN Administration FEVER Amlodipine Besylate 10 mg 12/30/15 10:00 05/02/16 10:52 Norvasc - GT 10 mg DAILY KWAKU Administration Guaifenesin 10 ml 12/29/15 10:43 03/17/16 21:49 Robitussin Dm - PO 10 ml Q6H PRN Administration COUGH Ibuprofen 200 mg 12/29/15 10:43 04/03/16 21:38 Motrin Oral Suspension - PO 200 mg Q6H PRN Administration FEVER Insulin Aspart 1 vial 01/28/16 16:30 05/02/16 06:31 Novolog Vial Sliding Scale - SQ Not Given BIDI [facility] Protocol Lactobacillus Acidophilus 1 tab 12/30/15 10:00 05/02/16 10:52 Bacid - PO 1 tab DAILY KWAKU Administration Lisinopril 40 mg 12/30/15 10:00 05/02/16 10:52 Prinivil - GT 40 mg DAILY KWAKU Administration Metoprolol Tartrate 150 mg 12/29/15 22:00 05/02/16 10:52 Lopressor - GT 150 mg BID KWAKU Administration Metoprolol Tartrate 5 mg 12/29/15 10:43 Lopressor Injection - IVPB Q6H PRN HYPERTENSION Multivitamins 5 ml 12/30/15 10:00 05/02/16 10:52 Thera-Plus - GT 5 ml DAILY KWAKU Administration Pantoprazole Sodium 40 mg 12/30/15 10:00 05/02/16 10:52 Protonix Packets For Oral Suspension - GT 40 mg DAILY KWAKU Administration Scopolamine HBr 1 patch 05/01/16 17:30 05/01/16 18:32 Transderm-Scop - TD 1 patch Q72H KWAKU Administration Zinc Sulfate 220 mg 03/31/16 22:00 05/02/16 10:52 Orazinc - PO 220 mg BID KWAKU Administration Objective: Vital Signs Period Temp Pulse Resp BP Sys/Santiago Pulse Ox Last 24 Hr 99.2 F-100.2 F 74-103 20-22 131-146/64-100 100 Physical Exam: General: No acute distress Neuro: Eye tracking to verbal stimulus Pulm: Tach collar, rhonchi throughout CV: RRR, S1S2 Abd: Soft, non-tender, non-distended. Normoactive bowel sounds. Peg tube c/d/i Ext: Warm, well-perfused. 2+ DP/PT bilaterally CBCD WBC 7.7 K/mm3 (4.0-10.0) 05/02/16 07:00 RBC 3.96 M/mm3 (4.00-5.60) L 05/02/16 07:00 Hgb 11.0 GM/dL (11.7-16.9) L 05/02/16 07:00 Hct 34.0 % (35.4-49) L 05/02/16 07:00 MCV 85.8 fl (80-96) 05/02/16 07:00 MCHC 32.3 g/dl (32.0-35.9) 05/02/16 07:00 RDW 16.2 % (11.9-15.9) H 05/02/16 07:00 Plt Count 184 K/MM3 (134-434) 05/02/16 07:00 MPV 9.0 fl (7.5-11.1) 05/02/16 07:00 CMP Sodium 140 mmol/L (136-145) 04/30/16 17:00 Potassium 3.8 mmol/L (3.5-5.1) 04/30/16 17:00 Chloride 103 mmol/L (98-107) 04/30/16 17:00 Carbon Dioxide 29 mmol/L (21-32) 04/30/16 17:00 Anion Gap 8 (8-16) 04/30/16 17:00 BUN 23 mg/dL (7-18) H 04/30/16 17:00 Creatinine 0.9 mg/dL (0.7-1.3) 04/30/16 17:00 Creat Clearance w eGFR > 60 (>60) 04/30/16 17:00 Random Glucose 186 mg/dL (74-106) H D 04/30/16 17:00 Calcium 10.7 mg/dL (8.5-10.1) H 04/30/16 17:00 Total Bilirubin 0.4 mg/dL (0.2-1.0) D 04/30/16 17:00 AST 29 U/L (15-37) D 04/30/16 17:00 ALT 84 U/L (12-78) H 04/30/16 17:00 Alkaline Phosphatase 132 U/L (45-117) H 04/30/16 17:00 Total Protein 8.9 g/dl (6.4-8.2) H 04/30/16 17:00 Albumin 4.0 g/dl (3.4-5.0) 04/30/16 17:00 CARDIAC ENZYMES Creatine Kinase 62 IU/L (38-174) 06/28/15 09:35 Troponin I 0.07 ng/ml (0.03-0.5) D 07/09/15 05:00 Assessment: 75 year old male with PMHx of HTN, IDDM, inguinal hernia who presented to the ED with diverticular bleed s/p Righ hemicolectomy with 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 Plan: 1. Fever, vomiting - Chest X-ray with some increased markings - Abd x-ray with abdominal distention on the right, no signs of free air - Tube feeds restarted at lower rate, will increase slowly - No vomiting noted since yesterday - Continue to monitor. If fevers persist, recheck chest x-ray 2. Anoxic brain injury s/p brainstem CVAs - Mental status unchanged 3. Respiratory failure secondary to anoxic brain injury - Cont trach collar - Duonebs PRN 4. HTN - Continue lisinopril, metoprolol, amlodipine 5. Multiple pressure ulcers - Turn and position q2h 6. IDDM - Levemir on hold as tube feeds were stopped, will monitor glucose and restart Levemir once tube feeds at goal rate - ISS BGM ACHS 7. F/E/N: - Tube feeds: increase slowly until at goal of 60ml/hr 8. Prophylaxis: - SCDs bilaterally - No chemical anticoagulation 2/2 spontaneous gluteal bleed and severe GI bleed - PT for passive ROM CODE STATUS: DNR 2- b/l DVTS s/p IVC filter 3- GI bleed: resolved 4- anoxic brain injury 5- s/p Trach 07/23. s/p PEG 6- DM . 7- HTN 8- LFTS abn 9- hypernatremia resolved 10 - vomiting : again last night Plan: - uncelar etiology for vomiting . KUB with no ileus or obstruction . will try to resume TF again . check US of liver , also need to check Cxray to r/o aspiration PNA as now has fever , and leukocytosis after vomiting . - repeat CBC today - cont antihypertensive meds - was started on D5 early this am as TF were held, now GBM 136. will stop IVF , resume TF. if vomits again , will hold TF and resume IVF - hold lantus tonight ( was on 28 u HS , last night got 17 , dose tomorrow wo be determined ) - SCDs . no SQ heparin or lovenox due to h/o spontaneous gluteal bled and severe GI bleed - wound care
[2016-05-02] MEDS: ACETAMINOPHEN 650 MG/20.3 ML ORAL SOLUTION (CUPS) GT PRN (22:11)
[2016-05-03] MEDS: INSULIN SLIDING SCALE (NOVOLOG) 1 VIAL SQ SCH ×2 (06:44→17:39)
[2016-05-03 09:02] LABS: BASOPHIL 0.8 % (0-2.0); EOSINOPHIL 5.9 % (0-4.5); MCH 27.6 pg (25.7-33.7); MCHC 32.3 g/dl (32.0-35.9); MEAN CELL VOLUME 85.7 fl (80-96); MEAN PLT VOLUME 8.4 fl (7.5-11.1); NEUTROPHILS 60.4 % (42.8-82.8); PLATELET COUNT 181 K/MM3 (134-434); RDW 16.1 % (11.9-15.9); WHITE BLOOD COUNT 7.3 K/mm3 (4.0-10.0)
[2016-05-03 09:26] LABS: ALBUMIN 3.3 g/dl (3.4-5.0); ANION GAP 6 (8-16); CALCIUM 9.5 mg/dL (8.5-10.1); CO2 31 mmol/L (21-32); GLUCOSE,RANDOM 124 mg/dL (74-106)
[2016-05-03 09:30] LABS: ALK PHOS 113 U/L (45-117); BILIRUBIN,TOTAL 0.3 mg/dL (0.2-1.0); CREATININE 0.9 mg/dL (0.7-1.3); SGOT/AST 18 U/L (15-37); SGPT/ALT 55 U/L (12-78); TOT PROT 7.4 g/dl (6.4-8.2)
[2016-05-03] MEDS: LISINOPRIL 20 MG TABLET (FP) GT SCH (11:00)
[2016-05-03] MEDS: PANTOPRAZOLE SOD 40 MG SUSPENSION PACKET GT SCH (11:00)
[2016-05-03] MEDS: ZINC SULFATE 220 MG CAPSULE (FP) PO SCH (11:00)
[2016-05-03] MEDS: LACTOBACILLUS ACIDOPHILUS 1 EACH TAB (FP) PO SCH (11:00)
[2016-05-03] MEDS: amLODIPine BESYLATE 10 MG TABLET (FP) GT SCH (11:01)
[2016-05-03] MEDS: MULTIVITAMINS THERAPEUTIC GT SCH (11:01)
[2016-05-03] MEDS: METOPROLOL TARTRATE 50 MG TABLET (FP) GT SCH ×2 (11:02→22:17)
[2016-05-03] MEDS: ACETAMINOPHEN 650 MG/20.3 ML ORAL SOLUTION (CUPS) GT PRN ×2 (11:38→19:25)
[2016-05-03 15:17] LABS: URINE APPEARANCE CLEAR; URINE BILIRUBIN NEGATIVE (NEGATIVE); URINE BLOOD NEGATIVE (NEGATIVE); URINE COLOR YELLOW; URINE GLUCOSE (UA) NEGATIVE (NEGATIVE); URINE KETONE NEGATIVE (NEGATIVE); URINE LEUK ESTERASE NEGATIVE (NEGATIVE); URINE NITRITE NEGATIVE (NEGATIVE); URINE PROTEIN NEGATIVE (NEGATIVE); URINE UROBILINOGEN NEGATIVE E.U./dl (0.2-1.0)
--- NOTE | 2016-05-03 16:01 | PN ---
Progress Note (short form) - Note Progress Note: Subjective: Pt seen and examined at bedside. He is non-verbal. He vomited twice yesterday. Tmax 100.2 yesterday Current Medications Generic Name Dose Route Start Last Admin Trade Name Freq PRN Reason Stop Dose Admin Acetaminophen 650 mg 12/29/15 10:43 05/03/16 11:38 Tylenol Oral Solution - GT 650 mg Q6H PRN Administration FEVER Albuterol/Ipratropium 1 amp 05/02/16 11:51 Duoneb - NEB Q6H PRN SHORTNESS OF BREATH Amlodipine Besylate 10 mg 12/30/15 10:00 05/03/16 11:01 Norvasc - GT 10 mg DAILY [facility]U Administration Guaifenesin 10 ml 12/29/15 10:43 03/17/16 21:49 Robitussin Dm - PO 10 ml Q6H PRN Administration COUGH Ibuprofen 200 mg 12/29/15 10:43 04/03/16 21:38 Motrin Oral Suspension - PO 200 mg Q6H PRN Administration FEVER Insulin Aspart 1 vial 01/28/16 16:30 05/03/16 06:44 Novolog Vial Sliding Scale - SQ 2 units BIDI KWAKU Administration Protocol Lactobacillus Acidophilus 1 tab 12/30/15 10:00 05/03/16 11:00 Bacid - PO 1 tab DAILY KWAKU Administration Lisinopril 40 mg 12/30/15 10:00 05/03/16 11:00 Prinivil - GT 40 mg DAILY KWAKU Administration Metoprolol Tartrate 150 mg 12/29/15 22:00 05/03/16 11:02 Lopressor - GT 150 mg BID KWAKU Administration Metoprolol Tartrate 5 mg 12/29/15 10:43 Lopressor Injection - IVPB Q6H PRN HYPERTENSION Multivitamins 5 ml 12/30/15 10:00 05/03/16 11:01 Thera-Plus - GT 5 ml DAILY KWAKU Administration Pantoprazole Sodium 40 mg 12/30/15 10:00 05/03/16 11:00 Protonix Packets For Oral Suspension - GT 40 mg DAILY K[facility]U Administration Scopolamine HBr 1 patch 05/01/16 17:30 05/01/16 18:32 Transderm-Scop - TD 1 patch Q72H KWAKU Administration Objective: Vital Signs Period Temp Pulse Resp BP Sys/Santiago Pulse Ox Last 24 Hr 97.9 F-100.6 F 67-94 20-24 133-146/74-81 98 Physical Exam: General: No acute distress Neuro: Eye tracking to verbal stimulus Pulm: Tach collar, rhonchi throughout CV: RRR, S1S2 Abd: Soft, non-tender, non-distended. Normoactive bowel sounds. Peg tube c/d/i Ext: Warm, well-perfused. 2+ DP/PT bilaterally CBCD WBC 7.3 K/mm3 (4.0-10.0) 05/03/16 08:15 RBC 3.69 M/mm3 (4.00-5.60) L 05/03/16 08:15 Hgb 10.2 GM/dL (11.7-16.9) L 05/03/16 08:15 Hct 31.6 % (35.4-49) L 05/03/16 08:15 MCV 85.7 fl (80-96) 05/03/16 08:15 MCHC 32.3 g/dl (32.0-35.9) 05/03/16 08:15 RDW 16.1 % (11.9-15.9) H 05/03/16 08:15 Plt Count 181 K/MM3 (134-434) 05/03/16 08:15 MPV 8.4 fl (7.5-11.1) 05/03/16 08:15 CMP Sodium 143 mmol/L (136-145) 05/03/16 08:15 Potassium 3.7 mmol/L (3.5-5.1) 05/03/16 08:15 Chloride 106 mmol/L (98-107) 05/03/16 08:15 Carbon Dioxide 31 mmol/L (21-32) 05/03/16 08:15 Anion Gap 6 (8-16) L 05/03/16 08:15 BUN 24 mg/dL (7-18) H 05/03/16 08:15 Creatinine 0.9 mg/dL (0.7-1.3) 05/03/16 08:15 Creat Clearance w eGFR > 60 (>60) 05/03/16 08:15 Random Glucose 124 mg/dL (74-106) H D 05/03/16 08:15 Calcium 9.5 mg/dL (8.5-10.1) 05/03/16 08:15 Total Bilirubin 0.3 mg/dL (0.2-1.0) D 05/03/16 08:15 AST 18 U/L (15-37) D 05/03/16 08:15 ALT 55 U/L (12-78) D 05/03/16 08:15 Alkaline Phosphatase 113 U/L (45-117) 05/03/16 08:15 Total Protein 7.4 g/dl (6.4-8.2) 05/03/16 08:15 Albumin 3.3 g/dl (3.4-5.0) L 05/03/16 08:15 CARDIAC ENZYMES Creatine Kinase 62 IU/L (38-174) 06/28/15 09:35 Troponin I 0.07 ng/ml (0.03-0.5) D 07/09/15 05:00 Assessment: 75 year old male with PMHx of HTN, IDDM, inguinal hernia who presented to the ED with diverticular bleed s/p Righ hemicolectomy with 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 Plan: 1. Fever - Vomiting resolved - Chest X-ray with no evidence of infiltrates - UA negative - F/u urine culture, f/u blood cultures - Abd x-ray with abdominal distention on the right, no signs of free air - Tube feeds restarted at lower rate yesterday, will increase slowly - Continue to monitor, will hold off on antibiotics until source found - F/u c.diff 2. Anoxic brain injury s/p brainstem CVAs - Mental status unchanged 3. Respiratory failure secondary to anoxic brain injury - Cont trach collar - Duonebs PRN 4. HTN - Continue lisinopril, metoprolol, amlodipine 5. Multiple pressure ulcers - Turn and position q2h 6. IDDM - Levemir on hold as tube feeds were stopped, will monitor glucose and restart Levemir once tube feeds at goal rate - ISS BGM ACHS 7. F/E/N: - Tube feeds: increase slowly until at goal of 60ml/hr 8. Prophylaxis: - SCDs bilaterally - No chemical anticoagulation 2/2 spontaneous gluteal bleed and severe GI bleed - PT for passive ROM CODE STATUS: DNR
[2016-05-04] MEDS: INSULIN SLIDING SCALE (NOVOLOG) 1 VIAL SQ SCH ×2 (06:46→17:29)
[2016-05-04 08:54] LABS: MCH 27.6 pg (25.7-33.7); MEAN CELL VOLUME 86.3 fl (80-96); PLATELET COUNT 177 K/MM3 (134-434); RDW 16.2 % (11.9-15.9); WHITE BLOOD COUNT 6.3 K/mm3 (4.0-10.0)
[2016-05-04 09:15] LABS: ALBUMIN 3.4 g/dl (3.4-5.0); ALK PHOS 137 U/L (45-117); ANION GAP 8 (8-16); BILIRUBIN,TOTAL 0.2 mg/dL (0.2-1.0); CALCIUM 9.6 mg/dL (8.5-10.1); CO2 29 mmol/L (21-32); CREATININE 0.9 mg/dL (0.7-1.3); GLUCOSE,RANDOM 139 mg/dL (74-106); SGOT/AST 20 U/L (15-37); SGPT/ALT 54 U/L (12-78); TOT PROT 7.7 g/dl (6.4-8.2)
--- NOTE | 2016-05-04 10:16 | PN ---
Progress Note, Physician Chief Complaint: ID Asked to follow up on this patient who neurologically unable to follow any commands for low grade temps Tmax 100. 6. By bedside observation not in any distress. Off antibiotics Blood and urine cultures no growth - Current Medication List Current Medications: Active Medications Acetaminophen (Tylenol Oral Solution -) 650 mg GT Q6H PRN PRN Reason: FEVER Last Admin: 05/03/16 19:25 Dose: 650 mg Albuterol/Ipratropium (Duoneb -) 1 amp NEB Q6H PRN PRN Reason: SHORTNESS OF BREATH Amlodipine Besylate (Norvasc -) 10 mg GT DAILY [facility] Last Admin: 05/03/16 11:01 Dose: 10 mg Guaifenesin (Robitussin Dm -) 10 ml PO Q6H PRN PRN Reason: COUGH Last Admin: 03/17/16 21:49 Dose: 10 ml Ibuprofen (Motrin Oral Suspension -) 200 mg PO Q6H PRN PRN Reason: FEVER Last Admin: 04/03/16 21:38 Dose: 200 mg Insulin Aspart (Novolog Vial Sliding Scale -) 1 vial SQ BIDI [facility] PRN Reason: Protocol Last Admin: 05/04/16 06:46 Dose: Not Given Lactobacillus Acidophilus (Bacid -) 1 tab PO DAILY [facility] Last Admin: 05/03/16 11:00 Dose: 1 tab Lisinopril (Prinivil -) 40 mg GT DAILY [facility] Last Admin: 05/03/16 11:00 Dose: 40 mg Metoprolol Tartrate (Lopressor -) 150 mg GT BID [facility] Last Admin: 05/03/16 22:17 Dose: 150 mg Metoprolol Tartrate (Lopressor Injection -) 5 mg IVPB Q6H PRN PRN Reason: HYPERTENSION Multivitamins (Thera-Plus -) 5 ml GT DAILY [facility] Last Admin: 05/03/16 11:01 Dose: 5 ml Pantoprazole Sodium (Protonix Packets For Oral Suspension -) 40 mg GT DAILY [facility] Last Admin: 05/03/16 11:00 Dose: 40 mg Scopolamine HBr (Transderm-Scop -) 1 patch TD Q72H [facility] Last Admin: 05/01/16 18:32 Dose: 1 patch - Objective Vital Signs: Vital Signs Temperature 99.8 F H 05/04/16 07:19 Pulse Rate 92 H 05/04/16 07:19 Respiratory Rate 20 05/04/16 07:19 Blood Pressure 132/66 05/04/16 07:19 O2 Sat by Pulse Oximetry (%) 92 L 05/03/16 21:00 Constitutional: Yes: No Distress Neck: Yes: Other (Trach with O2) Cardiovascular: Yes: S1, S2 Respiratory: Yes: Rhonchi Gastrointestinal: Yes: Soft. No: Tenderness, Tenderness, Rebound Edema: No Integumentary: Yes: Pressure Ulcer, Other (Sacral area) Labs: CBC, BMP 05/04/16 08:00 05/04/16 08:00 INR, PTT INR 1.29 (0.80-1.00) H 12/26/15 08:45 Assessment/Plan Laboratory Tests 05/04/16 05/04/16 08:00 08:00 WBC 6.3 Hgb 10.5 L Hct 32.8 L Plt Count 177 BUN 22 H Creatinine 0.9 AST 20 ALT 54 Alkaline Phosphatase 137 H D Assessment Anoxic brain injury with tracheostomy/ decubitus ulcer some low grade fevers Certainly this bedbound man at risk for nosocomial infection/pneumonia. Currently however in ramirez to want to treat him antibiotics unless fever 101/ WBC elevation should develop. Plan Lets watch for now ( note previously had that very resistant Acinetobacter in event he has fever)--? [employer] & tobra josé miguel Resendiz MD
--- NOTE | 2016-05-04 10:30 | PN ---
Progress Note (short form) - Note Progress Note: Subjective: Pt seen and examined at bedside. He is non-verbal. He vomited twice yesterday. Tmax 100.2 yesterday Current Medications Generic Name Dose Route Start Last Admin Trade Name Freq PRN Reason Stop Dose Admin Acetaminophen 650 mg 12/29/15 10:43 05/03/16 19:25 Tylenol Oral Solution - GT 650 mg Q6H PRN Administration FEVER Albuterol/Ipratropium 1 amp 05/02/16 11:51 Duoneb - NEB Q6H PRN SHORTNESS OF BREATH Amlodipine Besylate 10 mg 12/30/15 10:00 05/03/16 11:01 Norvasc - GT 10 mg DAILY KWAKU Administration Guaifenesin 10 ml 12/29/15 10:43 03/17/16 21:49 Robitussin Dm - PO 10 ml Q6H PRN Administration COUGH Ibuprofen 200 mg 12/29/15 10:43 04/03/16 21:38 Motrin Oral Suspension - PO 200 mg Q6H PRN Administration FEVER Insulin Aspart 1 vial 01/28/16 16:30 05/04/16 06:46 Novolog Vial Sliding Scale - SQ Not Given BIDI KWAKU Protocol Lactobacillus Acidophilus 1 tab 12/30/15 10:00 05/03/16 11:00 Bacid - PO 1 tab DAILY KWAKU Administration Lisinopril 40 mg 12/30/15 10:00 05/03/16 11:00 Prinivil - GT 40 mg DAILY KWAKU Administration Metoprolol Tartrate 150 mg 12/29/15 22:00 05/03/16 22:17 Lopressor - GT 150 mg BID KWAKU Administration Metoprolol Tartrate 5 mg 12/29/15 10:43 Lopressor Injection - IVPB Q6H PRN HYPERTENSION Multivitamins 5 ml 12/30/15 10:00 05/03/16 11:01 Thera-Plus - GT 5 ml DAILY KWAKU Administration Pantoprazole Sodium 40 mg 12/30/15 10:00 05/03/16 11:00 Protonix Packets For Oral Suspension - GT 40 mg DAILY KWAKU Administration Scopolamine HBr 1 patch 05/01/16 17:30 05/01/16 18:32 Transderm-Scop - TD 1 patch Q72H KWAKU Administration Objective: Vital Signs Period Temp Pulse Resp BP Sys/Santiago Pulse Ox Last 24 Hr 99.0 F-100.6 F 57-92 20-24 132-146/64-81 92-97 Physical Exam: General: No acute distress Neuro: Eye tracking to verbal stimulus Pulm: Tach collar, rhonchi throughout CV: RRR, S1S2 Abd: Soft, non-tender, non-distended. Normoactive bowel sounds. Peg tube c/d/i Ext: Warm, well-perfused. 2+ DP/PT bilaterally CBCD WBC 6.3 K/mm3 (4.0-10.0) 05/04/16 08:00 RBC 3.80 M/mm3 (4.00-5.60) L 05/04/16 08:00 Hgb 10.5 GM/dL (11.7-16.9) L 05/04/16 08:00 Hct 32.8 % (35.4-49) L 05/04/16 08:00 MCV 86.3 fl (80-96) 05/04/16 08:00 MCHC 32.0 g/dl (32.0-35.9) 05/04/16 08:00 RDW 16.2 % (11.9-15.9) H 05/04/16 08:00 Plt Count 177 K/MM3 (134-434) 05/04/16 08:00 MPV 9.0 fl (7.5-11.1) 05/04/16 08:00 CMP Sodium 142 mmol/L (136-145) 05/04/16 08:00 Potassium 3.8 mmol/L (3.5-5.1) 05/04/16 08:00 Chloride 105 mmol/L (98-107) 05/04/16 08:00 Carbon Dioxide 29 mmol/L (21-32) 05/04/16 08:00 Anion Gap 8 (8-16) 05/04/16 08:00 BUN 22 mg/dL (7-18) H 05/04/16 08:00 Creatinine 0.9 mg/dL (0.7-1.3) 05/04/16 08:00 Creat Clearance w eGFR > 60 (>60) 05/04/16 08:00 Random Glucose 139 mg/dL (74-106) H 05/04/16 08:00 Calcium 9.6 mg/dL (8.5-10.1) 05/04/16 08:00 Total Bilirubin 0.2 mg/dL (0.2-1.0) D 05/04/16 08:00 AST 20 U/L (15-37) 05/04/16 08:00 ALT 54 U/L (12-78) 05/04/16 08:00 Alkaline Phosphatase 137 U/L (45-117) H D 05/04/16 08:00 Total Protein 7.7 g/dl (6.4-8.2) 05/04/16 08:00 Albumin 3.4 g/dl (3.4-5.0) 05/04/16 08:00 CARDIAC ENZYMES Creatine Kinase 62 IU/L (38-174) 06/28/15 09:35 Troponin I 0.07 ng/ml (0.03-0.5) D 07/09/15 05:00 Assessment: 75 year old male with PMHx of HTN, IDDM, inguinal hernia who presented to the ED with diverticular bleed s/p Righ hemicolectomy with 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 Plan: 1. Fever s/p vomiting - Per ID, no abx at this time. Continue to observe, if leukocytosis or febrile to 101 will consider adding abx - Chest X-ray with no evidence of infiltrates - UA negative - F/u urine culture, f/u blood cultures - Abd x-ray with abdominal distention on the right, no signs of free air - Tube feeds restarted at lower rate yesterday, will increase slowly - Continue to monitor, will hold off on antibiotics until source found - F/u c.diff 2. Anoxic brain injury s/p brainstem CVAs - Mental status unchanged 3. Respiratory failure secondary to anoxic brain injury - Cont trach collar - Duonebs PRN 4. HTN - Continue lisinopril, metoprolol, amlodipine 5. Multiple pressure ulcers - Turn and position q2h 6. IDDM - Levemir on hold as tube feeds were stopped, will monitor glucose and restart Levemir once tube feeds at goal rate - ISS BGM ACHS 7. F/E/N: - Tube feeds: increase slowly until at goal of 60ml/hr 8. Prophylaxis: - SCDs bilaterally - No chemical anticoagulation 2/2 spontaneous gluteal bleed and severe GI bleed - PT for passive ROM CODE STATUS: DNR
[2016-05-04] MEDS: MULTIVITAMINS THERAPEUTIC GT SCH (11:12)
[2016-05-04] MEDS: LISINOPRIL 20 MG TABLET (FP) GT SCH (11:12)
[2016-05-04] MEDS: PANTOPRAZOLE SOD 40 MG SUSPENSION PACKET GT SCH (11:12)
[2016-05-04] MEDS: METOPROLOL TARTRATE 50 MG TABLET (FP) GT SCH ×2 (11:12→21:43)
[2016-05-04] MEDS: amLODIPine BESYLATE 10 MG TABLET (FP) GT SCH (11:12)
[2016-05-04] MEDS: LACTOBACILLUS ACIDOPHILUS 1 EACH TAB (FP) PO SCH (11:12)
[2016-05-04] MEDS: ACETAMINOPHEN 650 MG/20.3 ML ORAL SOLUTION (CUPS) GT PRN (11:12)
[2016-05-04] MEDS: SCOPOLAMINE HYDROBROMIDE 1 PATCH PATCH.TD72 TD SCH (17:28)
[2016-05-05] MEDS: INSULIN SLIDING SCALE (NOVOLOG) 1 VIAL SQ SCH ×2 (06:30→17:25)
[2016-05-05] MEDS: ACETAMINOPHEN 650 MG/20.3 ML ORAL SOLUTION (CUPS) GT PRN (06:30)
[2016-05-05 09:05] LABS: MCH 27.7 pg (25.7-33.7); MCHC 32.2 g/dl (32.0-35.9); MEAN CELL VOLUME 85.9 fl (80-96); MEAN PLT VOLUME 9.4 fl (7.5-11.1); PLATELET COUNT 187 K/MM3 (134-434); RDW 16.7 % (11.9-15.9); WHITE BLOOD COUNT 7.7 K/mm3 (4.0-10.0)
[2016-05-05] MEDS: LISINOPRIL 20 MG TABLET (FP) GT SCH (10:28)
[2016-05-05] MEDS: PANTOPRAZOLE SOD 40 MG SUSPENSION PACKET GT SCH (10:28)
[2016-05-05] MEDS: amLODIPine BESYLATE 10 MG TABLET (FP) GT SCH (10:28)
[2016-05-05] MEDS: METOPROLOL TARTRATE 50 MG TABLET (FP) GT SCH ×2 (10:28→22:12)
[2016-05-05] MEDS: LACTOBACILLUS ACIDOPHILUS 1 EACH TAB (FP) PO SCH (10:28)
[2016-05-05] MEDS: MULTIVITAMINS THERAPEUTIC GT SCH (10:29)
--- NOTE | 2016-05-05 11:12 | PN ---
Progress Note (short form) - Note Progress Note: Subjective: Pt seen and examined at bedside. He is non-verbal. Tmax 101.1 Repeat blood cultures sent Chest X-ray today suggestive of mild pulmonary venous congestion Current Medications Generic Name Dose Route Start Last Admin Trade Name Freq PRN Reason Stop Dose Admin Acetaminophen 650 mg 12/29/15 10:43 05/05/16 06:30 Tylenol Oral Solution - GT 650 mg Q6H PRN Administration FEVER Albuterol/Ipratropium 1 amp 05/02/16 11:51 Duoneb - NEB Q6H PRN SHORTNESS OF BREATH Amlodipine Besylate 10 mg 12/30/15 10:00 05/05/16 10:28 Norvasc - GT 10 mg DAILY KWAKU Administration Cefepime HCl 1 gm 05/05/16 11:00 Maxipime (Restricted To Id) - IVPB BID KWAKU Guaifenesin 10 ml 12/29/15 10:43 03/17/16 21:49 Robitussin Dm - PO 10 ml Q6H PRN Administration COUGH Vancomycin HCl 1,000 mg/ 250 mls @ 250 mls/hr 05/05/16 11:00 Dextrose IVPB BID KWAKU Ibuprofen 200 mg 12/29/15 10:43 04/03/16 21:38 Motrin Oral Suspension - PO 200 mg Q6H PRN Administration FEVER Insulin Aspart 1 vial 01/28/16 16:30 05/05/16 06:30 Novolog Vial Sliding Scale - SQ 2 units BIDI KWAKU Administration Protocol Lactobacillus Acidophilus 1 tab 12/30/15 10:00 05/05/16 10:28 Bacid - PO 1 tab DAILY KWAKU Administration Lisinopril 40 mg 12/30/15 10:00 05/05/16 10:28 Prinivil - GT 40 mg DAILY KWAKU Administration Metoprolol Tartrate 150 mg 12/29/15 22:00 05/05/16 10:28 Lopressor - GT 150 mg BID KWAKU Administration Metoprolol Tartrate 5 mg 12/29/15 10:43 Lopressor Injection - IVPB Q6H PRN HYPERTENSION Multivitamins 5 ml 12/30/15 10:00 05/05/16 10:29 Thera-Plus - GT 5 ml DAILY KWAKU Administration Pantoprazole Sodium 40 mg 12/30/15 10:00 05/05/16 10:28 Protonix Packets For Oral Suspension - GT 40 mg DAILY KWAKU Administration Scopolamine HBr 1 patch 05/01/16 17:30 05/04/16 17:28 Transderm-Scop - TD 1 patch Q72H KWAKU Administration Objective: Vital Signs Period Temp Pulse Resp BP Sys/Santiago Pulse Ox Last 24 Hr 98.6 F-101.1 F 74-93 18-20 148-165/80-96 95-96 Physical Exam: General: No acute distress Neuro: Eye tracking to verbal stimulus Pulm: Tach collar, rhonchi throughout CV: RRR, S1S2 Abd: Soft, non-tender, non-distended. Normoactive bowel sounds. Peg tube c/d/i Ext: Warm, well-perfused. 2+ DP/PT bilaterally CBCD WBC 7.7 K/mm3 (4.0-10.0) 05/05/16 08:00 RBC 3.96 M/mm3 (4.00-5.60) L 05/05/16 08:00 Hgb 11.0 GM/dL (11.7-16.9) L 05/05/16 08:00 Hct 34.0 % (35.4-49) L 05/05/16 08:00 MCV 85.9 fl (80-96) 05/05/16 08:00 MCHC 32.2 g/dl (32.0-35.9) 05/05/16 08:00 RDW 16.7 % (11.9-15.9) H 05/05/16 08:00 Plt Count 187 K/MM3 (134-434) 05/05/16 08:00 MPV 9.4 fl (7.5-11.1) 05/05/16 08:00 CMP Sodium 142 mmol/L (136-145) 05/04/16 08:00 Potassium 3.8 mmol/L (3.5-5.1) 05/04/16 08:00 Chloride 105 mmol/L (98-107) 05/04/16 08:00 Carbon Dioxide 29 mmol/L (21-32) 05/04/16 08:00 Anion Gap 8 (8-16) 05/04/16 08:00 BUN 22 mg/dL (7-18) H 05/04/16 08:00 Creatinine 0.9 mg/dL (0.7-1.3) 05/04/16 08:00 Creat Clearance w eGFR > 60 (>60) 05/04/16 08:00 Random Glucose 139 mg/dL (74-106) H 05/04/16 08:00 Calcium 9.6 mg/dL (8.5-10.1) 05/04/16 08:00 Total Bilirubin 0.2 mg/dL (0.2-1.0) D 05/04/16 08:00 AST 20 U/L (15-37) 05/04/16 08:00 ALT 54 U/L (12-78) 05/04/16 08:00 Alkaline Phosphatase 137 U/L (45-117) H D 05/04/16 08:00 Total Protein 7.7 g/dl (6.4-8.2) 05/04/16 08:00 Albumin 3.4 g/dl (3.4-5.0) 05/04/16 08:00 CARDIAC ENZYMES Creatine Kinase 62 IU/L (38-174) 06/28/15 09:35 Troponin I 0.07 ng/ml (0.03-0.5) D 07/09/15 05:00 Microbiology 05/03/16 19:00 Stool Clostridium difficile Antigen (MACHO) - Final 05/03/16 19:00 Stool Clostridium difficile Toxin Assay - Final 05/03/16 13:08 Blood - Peripheral Venous Blood Culture - Preliminary NO GROWTH OBTAINED AFTER 24 HOURS, INCUBATION TO CONTINUE FOR 4 DAYS. 05/03/16 13:08 Blood - Peripheral Venous Blood Culture - Preliminary NO GROWTH OBTAINED AFTER 24 HOURS, INCUBATION TO CONTINUE FOR 4 DAYS. 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 Plan: 1. Fever s/p vomiting - Tmax 101.1 - Discussed with Dr. Resendiz, will start Vancomycin and Cefepime - Chest X-ray with no evidence of infiltrates - UA negative - Urine culture with no growth - C.diff negative - F/u blood cultures from 7/8 - Appreciate ID consult 2. Anoxic brain injury s/p brainstem CVAs - Mental status unchanged 3. Respiratory failure secondary to anoxic brain injury - Cont trach collar - Duonebs PRN 4. HTN - Continue lisinopril, metoprolol, amlodipine 5. Multiple pressure ulcers - Turn and position q2h 6. IDDM - Restart Levemir at 14u sq qhs - ISS BGM ACHS 7. F/E/N: - Tube feeds: increase slowly until at goal of 60ml/hr 8. Prophylaxis: - SCDs bilaterally - No chemical anticoagulation 2/2 spontaneous gluteal bleed and severe GI bleed - PT for passive ROM CODE STATUS: DNR
--- NOTE | 2016-05-05 14:59 | PN ---
Progress Note, Physician Chief Complaint: ID Follow up as anticipated fevers 101 now Congested with tracheostomy NAD - Current Medication List Current Medications: Active Medications Acetaminophen (Tylenol Oral Solution -) 650 mg GT Q6H PRN PRN Reason: FEVER Last Admin: 05/05/16 06:30 Dose: 650 mg Albuterol/Ipratropium (Duoneb -) 1 amp NEB Q6H PRN PRN Reason: SHORTNESS OF BREATH Amlodipine Besylate (Norvasc -) 10 mg GT DAILY [facility] Last Admin: 05/05/16 10:28 Dose: 10 mg Cefepime HCl (Maxipime (Restricted To Id) -) 1 gm IVPB BID [facility] Guaifenesin (Robitussin Dm -) 10 ml PO Q6H PRN PRN Reason: COUGH Last Admin: 03/17/16 21:49 Dose: 10 ml Vancomycin HCl 1,000 mg/ (Dextrose) 250 mls @ 250 mls/hr IVPB BID [facility] Ibuprofen (Motrin Oral Suspension -) 200 mg PO Q6H PRN PRN Reason: FEVER Last Admin: 04/03/16 21:38 Dose: 200 mg Insulin Aspart (Novolog Vial Sliding Scale -) 1 vial SQ BIDI [facility] PRN Reason: Protocol Last Admin: 05/05/16 06:30 Dose: 2 units Insulin Detemir (Levemir Vial) 14 units SQ HS [facility] Lactobacillus Acidophilus (Bacid -) 1 tab PO DAILY [facility] Last Admin: 05/05/16 10:28 Dose: 1 tab Lisinopril (Prinivil -) 40 mg GT DAILY [facility] Last Admin: 05/05/16 10:28 Dose: 40 mg Metoprolol Tartrate (Lopressor -) 150 mg GT BID [facility] Last Admin: 05/05/16 10:28 Dose: 150 mg Metoprolol Tartrate (Lopressor Injection -) 5 mg IVPB Q6H PRN PRN Reason: HYPERTENSION Multivitamins (Thera-Plus -) 5 ml GT DAILY [facility] Last Admin: 05/05/16 10:29 Dose: 5 ml Pantoprazole Sodium (Protonix Packets For Oral Suspension -) 40 mg GT DAILY [facility] Last Admin: 05/05/16 10:28 Dose: 40 mg Scopolamine HBr (Transderm-Scop -) 1 patch TD Q72H [facility] Last Admin: 07/07/16 17:28 Dose: 1 patch - Objective Vital Signs: Vital Signs Temperature 99.6 F 05/05/16 10:00 Pulse Rate 90 05/05/16 10:00 Respiratory Rate 18 05/05/16 10:00 Blood Pressure 148/94 05/05/16 10:00 O2 Sat by Pulse Oximetry (%) 96 05/04/16 21:00 Neck: Yes: Other (Trach) Cardiovascular: Yes: S1, S2 Respiratory: Yes: Rhonchi Gastrointestinal: Yes: Soft Labs: CBC, BMP 05/05/16 08:00 05/04/16 08:00 INR, PTT INR 1.29 (0.80-1.00) H 12/26/15 08:45 Assessment/Plan Microbiology 05/03/16 13:08 Blood - Peripheral Venous Blood Culture - Preliminary NO GROWTH OBTAINED AFTER 48 HOURS, INCUBATION TO CONTINUE FOR 3 DAYS. Laboratory Tests 05/04/16 05/05/16 08:00 08:00 WBC 7.7 Hgb 11.0 L Plt Count 187 Creatinine 0.9 Creat Clearance w eGFR > 60 Assessment Fevers ? aspiration related Anoxic brain injury Plan Vanco and Cefepime empiric Get sputum from trach ? resistant organism Martín HERRERA
[2016-05-05] MEDS: CEFTAZIDIME PENTAHYDRATE 2 GM in DEXTROSE 5%-WATER - 100 ML IVPB SCH (18:27)
[2016-05-05] MEDS: INSULIN DETEMIR 100 UNITS/ML MDV SQ SCH (22:11)
[2016-05-06] MEDS: CEFTAZIDIME PENTAHYDRATE 2 GM in DEXTROSE 5%-WATER - 100 ML IVPB SCH ×3 (01:51→17:08)
[2016-05-06] MEDS: VANCOMYCIN 1 GRAM (PRE-DOCKED) 250 ML IVPB SCH ×2 (02:33→14:26)
[2016-05-06] MEDS: INSULIN SLIDING SCALE (NOVOLOG) 1 VIAL SQ SCH ×2 (06:27→17:10)
[2016-05-06 08:57] LABS: MCH 27.8 pg (25.7-33.7); MCHC 32.5 g/dl (32.0-35.9); MEAN CELL VOLUME 85.5 fl (80-96); MEAN PLT VOLUME 8.7 fl (7.5-11.1); PLATELET COUNT 164 K/MM3 (134-434); RDW 16.4 % (11.9-15.9); WHITE BLOOD COUNT 7.4 K/mm3 (4.0-10.0)
[2016-05-06] MEDS: PANTOPRAZOLE SOD 40 MG SUSPENSION PACKET GT SCH (10:27)
[2016-05-06] MEDS: METOPROLOL TARTRATE 50 MG TABLET (FP) GT SCH ×2 (10:27→22:38)
[2016-05-06] MEDS: MULTIVITAMINS THERAPEUTIC GT SCH (10:27)
[2016-05-06] MEDS: LACTOBACILLUS ACIDOPHILUS 1 EACH TAB (FP) PO SCH (10:27)
[2016-05-06] MEDS: LISINOPRIL 20 MG TABLET (FP) GT SCH (10:27)
[2016-05-06] MEDS: amLODIPine BESYLATE 10 MG TABLET (FP) GT SCH (10:27)
[2016-05-06] MEDS: ALBUTEROL SO4 2.5/IPRATROPIUM 0.5 INH SOL 3 ML VIAL.NEB. NEB PRN (11:31)
--- NOTE | 2016-05-06 13:25 | PN ---
Progress Note (short form) - Note Progress Note: SUBJECTIVE: Patient seen and examined. Pt is new to me this admission. Pt with minimal responsiveness. No acute distress noted. Pt nonverbal. Nursing denies fever, chills, further vomiting or other distress. Last fever yesterday 2pm. OBJECTIVE: Vital Signs 3 Temperature 98.5 F 05/06/16 14:37 Pulse Rate 82 05/06/16 14:55 Respiratory Rate 20 05/06/16 14:37 Blood Pressure 154/95 05/06/16 10:30 O2 Sat by Pulse Oximetry (%) 97 05/06/16 14:55 GENERAL: The patient is awake, nonverbal, in no acute distress. does not follow commands. Tracks movement with eyes at times. HEAD: Normal with no signs of trauma. EYES: PERRL, extraocular movements intact, sclera anicteric, conjunctiva clear. No ptosis. ENT: Ears normal, nares patent, oropharynx clear without exudates, moist mucous membranes. NECK: Trachea midline, full range of motion, supple. tracheostomy present LUNGS: Breath sounds equal, clear to auscultation bilaterally, no wheezes, no crackles, no accessory muscle use. HEART: Regular rate and rhythm, S1, S2 without murmur, rub or gallop. ABDOMEN: Soft, nontender, nondistended, normoactive bowel sounds, no guarding, no rebound, no hepatosplenomegaly, no masses. EXTREMITIES: 2+ pulses, warm, well-perfused, no edema. NEUROLOGICAL: Cranial nerves II through XII grossly intact. PSYCH: Normal mood, normal affect. SKIN: Warm, dry, normal turgor, no rashes or lesions noted CBCD 3 WBC 7.4 K/mm3 (4.0-10.0) 05/06/16 07:45 RBC 3.87 M/mm3 (4.00-5.60) L 05/06/16 07:45 Hgb 10.8 GM/dL (11.7-16.9) L 05/06/16 07:45 Hct 33.1 % (35.4-49) L 05/06/16 07:45 MCV 85.5 fl (80-96) 05/06/16 07:45 MCHC 32.5 g/dl (32.0-35.9) 05/06/16 07:45 RDW 16.4 % (11.9-15.9) H 05/06/16 07:45 Plt Count 164 K/MM3 (134-434) 05/06/16 07:45 MPV 8.7 fl (7.5-11.1) 05/06/16 07:45 CMP 3 Sodium 142 mmol/L (136-145) 05/04/16 08:00 Potassium 3.8 mmol/L (3.5-5.1) 05/04/16 08:00 Chloride 105 mmol/L (98-107) 05/04/16 08:00 Carbon Dioxide 29 mmol/L (21-32) 05/04/16 08:00 Anion Gap 8 (8-16) 05/04/16 08:00 BUN 22 mg/dL (7-18) H 05/04/16 08:00 Creatinine 0.9 mg/dL (0.7-1.3) 05/04/16 08:00 Creat Clearance w eGFR > 60 (>60) 05/04/16 08:00 Calcium 9.6 mg/dL (8.5-10.1) 05/04/16 08:00 Total Bilirubin 0.2 mg/dL (0.2-1.0) D 05/04/16 08:00 AST 20 U/L (15-37) 05/04/16 08:00 ALT 54 U/L (12-78) 05/04/16 08:00 Alkaline Phosphatase 137 U/L (45-117) H D 05/04/16 08:00 Total Protein 7.7 g/dl (6.4-8.2) 05/04/16 08:00 Albumin 3.4 g/dl (3.4-5.0) 05/04/16 08:00 Microbiology 05/03/16 13:08 Blood - Peripheral Venous Blood Culture - Preliminary NO GROWTH OBTAINED AFTER 72 HOURS, INCUBATION TO CONTINUE FOR 2 DAYS. 05/03/16 13:08 Blood - Peripheral Venous Blood Culture - Preliminary NO GROWTH OBTAINED AFTER 72 HOURS, INCUBATION TO CONTINUE FOR 2 DAYS. 05/05/16 11:00 Blood - Peripheral Venous Blood Culture - Preliminary NO GROWTH OBTAINED AFTER 24 HOURS, INCUBATION TO CONTINUE FOR 4 DAYS. 05/05/16 11:00 Blood - Peripheral Venous Blood Culture - Preliminary NO GROWTH OBTAINED AFTER 24 HOURS, INCUBATION TO CONTINUE FOR 4 DAYS. 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 Now with recent fever Plan: 1. Aspiration pneumonitis, fever - afebrile, lung sounds improved - Discussed with Dr. Resendiz, will start Vancomycin and Cefepime - Chest X-ray with no evidence of infiltrates - UA negative - Urine culture with no growth - C.diff negative - F/u blood cultures from 05/05 - Appreciate ID consult 2. Anoxic brain injury s/p brainstem CVAs - Mental status unchanged 3. Respiratory failure secondary to anoxic brain injury - Cont trach collar - Duonebs PRN 4. HTN - Continue lisinopril, metoprolol, amlodipine 5. IDDM - Restart Levemir at 14u sq qhs - ISS BGM ACHS 6. F/E/N: - Tube feeds: tolerating without issues. 8. Prophylaxis: - SCDs bilaterally - No chemical anticoagulation 2/2 spontaneous gluteal bleed and severe GI bleed - PT for passive ROM CODE STATUS: DNR
[2016-05-06] MEDS: INSULIN DETEMIR 100 UNITS/ML MDV SQ SCH (22:37)
[2016-05-07] MEDS: CEFTAZIDIME PENTAHYDRATE 2 GM in DEXTROSE 5%-WATER - 100 ML IVPB SCH ×3 (02:08→17:20)
[2016-05-07] MEDS: VANCOMYCIN 1 GRAM (PRE-DOCKED) 250 ML IVPB SCH ×2 (02:08→14:50)
[2016-05-07] MEDS: INSULIN SLIDING SCALE (NOVOLOG) 1 VIAL SQ SCH ×2 (06:30→17:21)
[2016-05-07 08:51] LABS: BASOPHIL 0.7 % (0-2.0); EOSINOPHIL 6.1 % (0-4.5); MCHC 32.8 g/dl (32.0-35.9); MEAN CELL VOLUME 85.3 fl (80-96); MEAN PLT VOLUME 8.6 fl (7.5-11.1); NEUTROPHILS 64.4 % (42.8-82.8); PLATELET COUNT 167 K/MM3 (134-434); RDW 16.5 % (11.9-15.9); WHITE BLOOD COUNT 7.7 K/mm3 (4.0-10.0)
[2016-05-07 09:31] LABS: ALBUMIN 3.5 g/dl (3.4-5.0); ANION GAP 7 (8-16); CALCIUM 9.6 mg/dL (8.5-10.1); CO2 30 mmol/L (21-32); CREATININE 0.8 mg/dL (0.7-1.3); GLUCOSE,RANDOM 124 mg/dL (74-106); SGOT/AST 17 U/L (15-37); SGPT/ALT 40 U/L (12-78)
[2016-05-07 09:33] LABS: ALK PHOS 147 U/L (45-117); BILIRUBIN,TOTAL 0.3 mg/dL (0.2-1.0); TOT PROT 8.1 g/dl (6.4-8.2)
[2016-05-07] MEDS: ALBUTEROL SO4 2.5/IPRATROPIUM 0.5 INH SOL 3 ML VIAL.NEB. NEB PRN (10:41)
[2016-05-07] MEDS: METOPROLOL TARTRATE 50 MG TABLET (FP) GT SCH ×2 (11:08→21:46)
[2016-05-07] MEDS: PANTOPRAZOLE SOD 40 MG SUSPENSION PACKET GT SCH (11:08)
[2016-05-07] MEDS: LACTOBACILLUS ACIDOPHILUS 1 EACH TAB (FP) PO SCH (11:09)
[2016-05-07] MEDS: amLODIPine BESYLATE 10 MG TABLET (FP) GT SCH (11:09)
[2016-05-07] MEDS: LISINOPRIL 20 MG TABLET (FP) GT SCH (11:09)
[2016-05-07] MEDS: MULTIVITAMINS THERAPEUTIC GT SCH (11:10)
[2016-05-07] MEDS: SCOPOLAMINE HYDROBROMIDE 1 PATCH PATCH.TD72 TD SCH (17:21)
[2016-05-07] MEDS: INSULIN DETEMIR 100 UNITS/ML MDV SQ SCH (21:46)
--- NOTE | 2016-05-07 23:22 | PN ---
Physical Exam: Late entry: SUBJECTIVE: Patient seen and examined at 4pm Staff report no acute CIC. Noted with cough, productive white/yellow sputum. Tmax 99.4 @240pm. OBJECTIVE: Vital Signs Period Temp Pulse Resp BP Sys/Santiago Pulse Ox Last 24 Hr 98.1 F-99.8 F 69-90 20-22 136-158/76-98 97-98 GENERAL: The patient is awake, alert, nonverbal, does not follow commands, in no acute distress. HEAD: Normal with no signs of trauma. EYES: PERRL, extraocular movements grossly intact-does not follow commands, sclera anicteric, conjunctiva clear. ENT: Ears normal, nares patent, oropharynx clear without exudates, moist mucous membranes. NECK: Trachea midline, full range of motion, supple. tracheostomy present LUNGS: Breath sounds equal, clear to auscultation bilaterally, no wheezes, no crackles, no accessory muscle use. HEART: Regular rate and rhythm, S1, S2 without murmur, rub or gallop. ABDOMEN: Soft, nontender, nondistended, normoactive bowel sounds, no guarding, no rebound, no hepatosplenomegaly, no masses. EXTREMITIES: 2+ pulses, warm, well-perfused, no edema. NEUROLOGICAL: Cranial nerves II through XII grossly intact. Normal speech SKIN: Warm, dry, normal turgor, no rashes noted Laboratory Results - last 24 hr 05/07/16 05/07/16 05/07/16 05:55 08:00 08:00 WBC 7.7 RBC 3.76 L Hgb 10.5 L Hct 32.0 L MCV 85.3 MCHC 32.8 RDW 16.5 H Plt Count 167 MPV 8.6 Neutrophils % 64.4 Lymphocytes % 22.3 Monocytes % 6.5 Eosinophils % 6.1 H Basophils % 0.7 Sodium 136 Potassium 3.9 Chloride 99 Carbon Dioxide 30 Anion Gap 7 L BUN 19 H Creatinine 0.8 Creat Clearance w eGFR > 60 POC Glucometer 176 Random Glucose 124 H Calcium 9.6 Total Bilirubin 0.3 D AST 17 ALT 40 D Alkaline Phosphatase 147 H Total Protein 8.1 Albumin 3.5 05/07/16 16:58 WBC RBC Hgb Hct MCV MCHC RDW Plt Count MPV Neutrophils % Lymphocytes % Monocytes % Eosinophils % Basophils % Sodium Potassium Chloride Carbon Dioxide Anion Gap BUN Creatinine Creat Clearance w eGFR POC Glucometer 171 Random Glucose Calcium Total Bilirubin AST ALT Alkaline Phosphatase Total Protein Albumin Active Medications Generic Name Dose Route Start Last Admin Trade Name Jaylanq PRN Reason Stop Dose Admin Acetaminophen 650 mg 12/29/15 10:43 05/05/16 06:30 Tylenol Oral Solution - GT 650 mg Q6H PRN Administration FEVER Albuterol/Ipratropium 1 amp 05/02/16 11:51 05/07/16 10:41 Duoneb - NEB 1 amp Q6H PRN Administration SHORTNESS OF BREATH Amlodipine Besylate 10 mg 12/30/15 10:00 05/07/16 11:09 Norvasc - GT 10 mg DAILY KWAKU Administration Guaifenesin 10 ml 12/29/15 10:43 03/17/16 21:49 Robitussin Dm - PO 10 ml Q6H PRN Administration COUGH Vancomycin HCl 250 mls @ 166.667 mls/hr 05/06/16 02:00 05/07/16 14:50 Vancomycin (Pre-Docked) IVPB 166.667 mls/hr BID@0200,1400 KWAKU Administration Ceftazidime 2 gm/ Dextrose 100 mls @ 200 mls/hr 05/05/16 18:00 05/07/16 17:20 IVPB 200 mls/hr Q8H-IV KWAKU Administration Ibuprofen 200 mg 12/29/15 10:43 04/03/16 21:38 Motrin Oral Suspension - PO 200 mg Q6H PRN Administration FEVER Insulin Aspart 1 vial 01/28/16 16:30 05/07/16 17:21 Novolog Vial Sliding Scale - SQ 2 units BIDI KWAKU Administration Protocol Insulin Detemir 14 units 05/05/16 22:00 05/07/16 21:46 Levemir Vial SQ 14 units HS KWAKU Administration Lactobacillus Acidophilus 1 tab 12/30/15 10:00 05/07/16 11:09 Bacid - PO 1 tab DAILY KWAKU Administration Lisinopril 40 mg 12/30/15 10:00 05/07/16 11:09 Prinivil - GT 40 mg DAILY KWAKU Administration Metoprolol Tartrate 150 mg 12/29/15 22:00 05/07/16 21:46 Lopressor - GT 150 mg BID KWAKU Administration Metoprolol Tartrate 5 mg 12/29/15 10:43 Lopressor Injection - IVPB Q6H PRN HYPERTENSION Multivitamins 5 ml 12/30/15 10:00 05/07/16 11:10 Thera-Plus - GT 5 ml DAILY KWAKU Administration Pantoprazole Sodium 40 mg 12/30/15 10:00 05/07/16 11:08 Protonix Packets For Oral Suspension - GT 40 mg DAILY KWAKU Administration Scopolamine HBr 1 patch 05/01/16 17:30 05/07/16 17:21 Transderm-Scop - TD 1 patch Q72H KWAKU Administration ASSESSMENT/PLAN: Assessment: 75 year old male with PMHx of HTN, IDDM, inguinal hernia who presented to the ED with diverticular bleed s/p Right hemicolectomy with 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 Now with recent fever Plan: 1. Aspiration pneumonitis, fever - afebrile, lung sounds improved - Chest X-ray with no evidence of infiltrates - UA negative - Urine culture with no growth - C.diff negative - F/u blood cultures from 05/05, NGTD - sputum c/s pending - Appreciate ID consult 2. Anoxic brain injury s/p brainstem CVAs - Mental status unchanged 3. Respiratory failure secondary to anoxic brain injury - Cont trach collar - Duonebs PRN 4. HTN - Continue lisinopril, metoprolol, amlodipine 5. IDDM - cont Levemir at 14u sq qhs, FSBS 100s with same. - ISS BGM ACHS 6. F/E/N: - Tube feeds: tolerating without issues. 8. Prophylaxis: - SCDs bilaterally - No chemical anticoagulation 2/2 spontaneous gluteal bleed and severe GI bleed - PT for passive ROM CODE STATUS: DNR Visit Type - Emergency Visit Emergency Visit: Yes ED Registration Date: 06/27/15 Care time: The patient presented to the Emergency Department on the above date and was hospitalized for further evaluation of their emergent condition. - New Patient This patient is new to me today: No - Critical Care Critical Care patient: No
[2016-05-08] MEDS: CEFTAZIDIME PENTAHYDRATE 2 GM in DEXTROSE 5%-WATER - 100 ML IVPB SCH ×3 (02:08→18:28)
[2016-05-08] MEDS: VANCOMYCIN 1 GRAM (PRE-DOCKED) 250 ML IVPB SCH (02:09)
[2016-05-08] MEDS: INSULIN SLIDING SCALE (NOVOLOG) 1 VIAL SQ SCH ×2 (06:18→18:28)
--- NOTE | 2016-05-08 09:22 | PN ---
Progress Note (short form) - Note Progress Note: OPENS eyes does not follow commands still with tracheal secretions Vital Signs Period Temp Pulse Resp BP Sys/Santiago Pulse Ox Last 24 Hr 98.1 F-136 F 69-90 20-22 128-158/60-98 97-98 spoke with RN, no fevers trach with thick white secretions cor-rrr abd soft, NT +GT ext bilateral drop CBC, BMP 05/07/16 08:00 05/07/16 08:00 Microbiology 05/05/16 19:00 Gram Stain - Final Sputum - Endotracheal Suction W/O Vent Sputum Culture - Preliminary Non Lactose Fermenting Gnb 05/03/16 13:08 Blood Culture - Preliminary Blood - Peripheral Venous NO GROWTH OBTAINED AFTER 96 HOURS, INCUBATION TO CONTINUE FOR 1 DAYS. 05/03/16 13:08 Blood Culture - Preliminary Blood - Peripheral Venous NO GROWTH OBTAINED AFTER 96 HOURS, INCUBATION TO CONTINUE FOR 1 DAYS. 05/05/16 11:00 Blood Culture - Preliminary Blood - Peripheral Venous NO GROWTH OBTAINED AFTER 48 HOURS, INCUBATION TO CONTINUE FOR 3 DAYS. 05/05/16 11:00 Blood Culture - Preliminary Blood - Peripheral Venous NO GROWTH OBTAINED AFTER 48 HOURS, INCUBATION TO CONTINUE FOR 3 DAYS. cxray no clear infiltrate +congestion a/p fevers- improved Probable aspiration continue fortaz day #3 d/c vancomycin - f/u cultures
[2016-05-08] MEDS: METOPROLOL TARTRATE 50 MG TABLET (FP) GT SCH ×2 (10:37→22:07)
[2016-05-08] MEDS: PANTOPRAZOLE SOD 40 MG SUSPENSION PACKET GT SCH (10:37)
[2016-05-08] MEDS: LACTOBACILLUS ACIDOPHILUS 1 EACH TAB (FP) PO SCH (10:37)
[2016-05-08] MEDS: amLODIPine BESYLATE 10 MG TABLET (FP) GT SCH (10:38)
[2016-05-08] MEDS: LISINOPRIL 20 MG TABLET (FP) GT SCH (10:38)
[2016-05-08] MEDS: MULTIVITAMINS THERAPEUTIC GT SCH (10:38)
--- NOTE | 2016-05-08 11:38 | PN ---
Progress Note (short form) - Note Progress Note: Subjective: Pt seen and examined at bedside. He is non-verbal. Tmax 99.8 Remained afebrile since 05/05 Sputum culture positive for pseudomonas aeruginosa resistant to ceftazidime. Discussed with Dr. Fragoso who states to continue the Ceftazidime as the patient has improved on it and is now afebrile. Current Medications Generic Name Dose Route Start Last Admin Trade Name Freq PRN Reason Stop Dose Admin Acetaminophen 650 mg 12/29/15 10:43 05/05/16 06:30 Tylenol Oral Solution - GT 650 mg Q6H PRN Administration FEVER Albuterol/Ipratropium 1 amp 05/02/16 11:51 05/07/16 10:41 Duoneb - NEB 1 amp Q6H PRN Administration SHORTNESS OF BREATH Amlodipine Besylate 10 mg 12/30/15 10:00 05/08/16 10:38 Norvasc - GT 10 mg DAILY KWAKU Administration Guaifenesin 10 ml 12/29/15 10:43 03/17/16 21:49 Robitussin Dm - PO 10 ml Q6H PRN Administration COUGH Ceftazidime 2 gm/ Dextrose 100 mls @ 200 mls/hr 05/05/16 18:00 05/08/16 10:37 IVPB 200 mls/hr Q8H-IV KWAKU Administration Ibuprofen 200 mg 12/29/15 10:43 04/03/16 21:38 Motrin Oral Suspension - PO 200 mg Q6H PRN Administration FEVER Insulin Aspart 1 vial 01/28/16 16:30 05/08/16 06:18 Novolog Vial Sliding Scale - SQ 2 units BIDI KWAKU Administration Protocol Insulin Detemir 14 units 05/05/16 22:00 05/07/16 21:46 Levemir Vial SQ 14 units HS KWAKU Administration Lactobacillus Acidophilus 1 tab 12/30/15 10:00 05/08/16 10:37 Bacid - PO 1 tab DAILY KWAKU Administration Lisinopril 40 mg 12/30/15 10:00 05/08/16 10:38 Prinivil - GT 40 mg DAILY KWAKU Administration Metoprolol Tartrate 150 mg 12/29/15 22:00 05/08/16 10:37 Lopressor - GT 150 mg BID KWAKU Administration Metoprolol Tartrate 5 mg 12/29/15 10:43 Lopressor Injection - IVPB Q6H PRN HYPERTENSION Multivitamins 5 ml 12/30/15 10:00 05/08/16 10:38 Thera-Plus - GT 5 ml DAILY KWAKU Administration Pantoprazole Sodium 40 mg 12/30/15 10:00 05/08/16 10:37 Protonix Packets For Oral Suspension - GT 40 mg DAILY KWAKU Administration Scopolamine HBr 1 patch 05/01/16 17:30 05/07/16 17:21 Transderm-Scop - TD 1 patch Q72H KWAKU Administration Objective: Vital Signs Period Temp Pulse Resp BP Sys/Santiago Pulse Ox Last 24 Hr 98.6 F-136 F 69-88 22-22 128-157/60-98 97-98 Physical Exam: General: No acute distress Neuro: Eye tracking to verbal stimulus Pulm: Tach collar, rhonchi throughout CV: RRR, S1S2 Abd: Soft, non-tender, non-distended. Normoactive bowel sounds. Peg tube c/d/i Ext: Warm, well-perfused. 2+ DP/PT bilaterally CBCD WBC 7.7 K/mm3 (4.0-10.0) 05/07/16 08:00 RBC 3.76 M/mm3 (4.00-5.60) L 05/07/16 08:00 Hgb 10.5 GM/dL (11.7-16.9) L 05/07/16 08:00 Hct 32.0 % (35.4-49) L 05/07/16 08:00 MCV 85.3 fl (80-96) 05/07/16 08:00 MCHC 32.8 g/dl (32.0-35.9) 05/07/16 08:00 RDW 16.5 % (11.9-15.9) H 05/07/16 08:00 Plt Count 167 K/MM3 (134-434) 05/07/16 08:00 MPV 8.6 fl (7.5-11.1) 05/07/16 08:00 CMP Sodium 136 mmol/L (136-145) 05/07/16 08:00 Potassium 3.9 mmol/L (3.5-5.1) 05/07/16 08:00 Chloride 99 mmol/L (98-107) 05/07/16 08:00 Carbon Dioxide 30 mmol/L (21-32) 05/07/16 08:00 Anion Gap 7 (8-16) L 05/07/16 08:00 BUN 19 mg/dL (7-18) H 05/07/16 08:00 Creatinine 0.8 mg/dL (0.7-1.3) 05/07/16 08:00 Creat Clearance w eGFR > 60 (>60) 05/07/16 08:00 Random Glucose 124 mg/dL (74-106) H 05/07/16 08:00 Calcium 9.6 mg/dL (8.5-10.1) 05/07/16 08:00 Total Bilirubin 0.3 mg/dL (0.2-1.0) D 05/07/16 08:00 AST 17 U/L (15-37) 05/07/16 08:00 ALT 40 U/L (12-78) D 05/07/16 08:00 Alkaline Phosphatase 147 U/L (45-117) H 05/07/16 08:00 Total Protein 8.1 g/dl (6.4-8.2) 05/07/16 08:00 Albumin 3.5 g/dl (3.4-5.0) 05/07/16 08:00 CARDIAC ENZYMES Creatine Kinase 62 IU/L (38-174) 06/28/15 09:35 Troponin I 0.07 ng/ml (0.03-0.5) D 07/09/15 05:00 Microbiology 05/05/16 11:00 Blood - Peripheral Venous Blood Culture - Preliminary NO GROWTH OBTAINED AFTER 72 HOURS, INCUBATION TO CONTINUE FOR 2 DAYS. 05/05/16 11:00 Blood - Peripheral Venous Blood Culture - Preliminary NO GROWTH OBTAINED AFTER 72 HOURS, INCUBATION TO CONTINUE FOR 2 DAYS. 05/05/16 19:00 Sputum - Endotracheal Suction W/O Vent Gram Stain - Final 05/05/16 19:00 Sputum - Endotracheal Suction W/O Vent Sputum Culture - Final Pseudomonas Aeruginosa 05/03/16 13:08 Blood - Peripheral Venous Blood Culture - Preliminary NO GROWTH OBTAINED AFTER 96 HOURS, INCUBATION TO CONTINUE FOR 1 DAYS. 05/03/16 13:08 Blood - Peripheral Venous Blood Culture - Preliminary NO GROWTH OBTAINED AFTER 96 HOURS, INCUBATION TO CONTINUE FOR 1 DAYS. 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 Plan: 1. Fever s/p vomiting - Afebrile since 05/05 - Sputum culture with pseudomonas aeruginosa, resistant to ceftazidime. Dr. Fragoso aware and recommends continuing current treatment plan - Chest X-ray with no evidence of infiltrates - UA negative - Urine culture with no growth - C.diff negative - F/u blood cultures from 05/05, NGTD - Appreciate ID consult 2. Anoxic brain injury s/p brainstem CVAs - Mental status unchanged 3. Respiratory failure secondary to anoxic brain injury - Cont trach collar - Duonebs PRN 4. HTN - Continue lisinopril, metoprolol, amlodipine 5. Multiple pressure ulcers - Turn and position q2h 6. IDDM - Restart Levemir at 14u sq qhs - ISS BGM ACHS 7. F/E/N: - Tube feeds: increase slowly until at goal of 60ml/hr 8. Prophylaxis: - SCDs bilaterally - No chemical anticoagulation 2/2 spontaneous gluteal bleed and severe GI bleed - PT for passive ROM CODE STATUS: DNR
[2016-05-08] MEDS: INSULIN DETEMIR 100 UNITS/ML MDV SQ SCH (22:06)
[2016-05-09] MEDS: CEFTAZIDIME PENTAHYDRATE 2 GM in DEXTROSE 5%-WATER - 100 ML IVPB SCH ×3 (01:41→17:18)
[2016-05-09] MEDS: INSULIN SLIDING SCALE (NOVOLOG) 1 VIAL SQ SCH ×2 (06:09→17:32)
[2016-05-09] MEDS: LISINOPRIL 20 MG TABLET (FP) GT SCH (11:17)
[2016-05-09] MEDS: amLODIPine BESYLATE 10 MG TABLET (FP) GT SCH (11:17)
[2016-05-09] MEDS: METOPROLOL TARTRATE 50 MG TABLET (FP) GT SCH ×2 (11:18→22:28)
[2016-05-09] MEDS: LACTOBACILLUS ACIDOPHILUS 1 EACH TAB (FP) PO SCH (11:18)
[2016-05-09] MEDS: MULTIVITAMINS THERAPEUTIC GT SCH (11:18)
[2016-05-09] MEDS: PANTOPRAZOLE SOD 40 MG SUSPENSION PACKET GT SCH (11:18)
--- NOTE | 2016-05-09 13:03 | PN ---
Progress Note (short form) - Note Progress Note: OPENS eyes does not follow commands tracheal secretions improved Vital Signs Period Temp Pulse Resp BP Sys/Santiago Pulse Ox Last 24 Hr 98.8 F-99.9 F 76-96 20-20 137-149/1-91 95-96 cor-rrr lungs scattered rhonchi abd soft, nt +GT ext no edema CBC, BMP 05/07/16 08:00 05/07/16 08:00 Microbiology 05/05/16 11:00 Blood Culture - Preliminary Blood - Peripheral Venous NO GROWTH OBTAINED AFTER 96 HOURS, INCUBATION TO CONTINUE FOR 1 DAYS. 05/05/16 11:00 Blood Culture - Preliminary Blood - Peripheral Venous NO GROWTH OBTAINED AFTER 96 HOURS, INCUBATION TO CONTINUE FOR 1 DAYS. 05/03/16 13:08 Blood Culture - Final Blood - Peripheral Venous NO GROWTH AFTER 5 DAYS INCUBATION 05/03/16 13:08 Blood Culture - Final Blood - Peripheral Venous NO GROWTH AFTER 5 DAYS INCUBATION 05/05/16 19:00 Gram Stain - Final Sputum - Endotracheal Suction W/O Vent Sputum Culture - Final Pseudomonas Aeruginosa Current Medications Acetaminophen (Tylenol Oral Solution -) 650 mg GT Q6H PRN PRN Reason: FEVER Last Admin: 05/05/16 06:30 Dose: 650 mg Albuterol/Ipratropium (Duoneb -) 1 amp NEB Q6H PRN PRN Reason: SHORTNESS OF BREATH Last Admin: 05/07/16 10:41 Dose: 1 amp Amlodipine Besylate (Norvasc -) 10 mg GT DAILY KWAKU Last Admin: 05/09/16 11:17 Dose: 10 mg Guaifenesin (Robitussin Dm -) 10 ml PO Q6H PRN PRN Reason: COUGH Last Admin: 03/17/16 21:49 Dose: 10 ml Ceftazidime 2 gm/ Dextrose 100 mls @ 200 mls/hr IVPB Q8H-IV KWAKU Last Admin: 05/09/16 11:20 Dose: 200 mls/hr Ibuprofen (Motrin Oral Suspension -) 200 mg PO Q6H PRN PRN Reason: FEVER Last Admin: 04/03/16 21:38 Dose: 200 mg Insulin Aspart (Novolog Vial Sliding Scale -) 1 vial SQ BIDI KWAKU PRN Reason: Protocol Last Admin: 05/09/16 06:09 Dose: Not Given Insulin Detemir (Levemir Vial) 14 units SQ HS [facility] Last Admin: 05/08/16 22:06 Dose: 14 units Lactobacillus Acidophilus (Bacid -) 1 tab PO DAILY [facility] Last Admin: 05/09/16 11:18 Dose: 1 tab Lisinopril (Prinivil -) 40 mg GT DAILY [facility] Last Admin: 05/09/16 11:17 Dose: 40 mg Metoprolol Tartrate (Lopressor -) 150 mg GT BID [facility] Last Admin: 05/09/16 11:18 Dose: 150 mg Metoprolol Tartrate (Lopressor Injection -) 5 mg IVPB Q6H PRN PRN Reason: HYPERTENSION Multivitamins (Thera-Plus -) 5 ml GT DAILY [facility] Last Admin: 05/09/16 11:18 Dose: 5 ml Pantoprazole Sodium (Protonix Packets For Oral Suspension -) 40 mg GT DAILY [facility] Last Admin: 05/09/16 11:18 Dose: 40 mg Scopolamine HBr (Transderm-Scop -) 1 patch TD Q72H [facility] Last Admin: 05/07/16 17:21 Dose: 1 patch a/p fevers- improved Probable aspiration continue fortaz day #4/7 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
--- NOTE | 2016-05-09 16:25 | PN ---
Progress Note (short form) - Note Progress Note: Subjective: Pt seen and examined at bedside. He is non-verbal. Tmax 99.6 Remained afebrile since 05/05 Current Medications Generic Name Dose Route Start Last Admin Trade Name Freq PRN Reason Stop Dose Admin Acetaminophen 650 mg 12/29/15 10:43 05/05/16 06:30 Tylenol Oral Solution - GT 650 mg Q6H PRN Administration FEVER Albuterol/Ipratropium 1 amp 05/02/16 11:51 05/07/16 10:41 Duoneb - NEB 1 amp Q6H PRN Administration SHORTNESS OF BREATH Amlodipine Besylate 10 mg 12/30/15 10:00 05/08/16 10:38 Norvasc - GT 10 mg DAILY KWAKU Administration Guaifenesin 10 ml 12/29/15 10:43 03/17/16 21:49 Robitussin Dm - PO 10 ml Q6H PRN Administration COUGH Ceftazidime 2 gm/ Dextrose 100 mls @ 200 mls/hr 05/05/16 18:00 05/08/16 10:37 IVPB 200 mls/hr Q8H-IV KWAKU Administration Ibuprofen 200 mg 12/29/15 10:43 04/03/16 21:38 Motrin Oral Suspension - PO 200 mg Q6H PRN Administration FEVER Insulin Aspart 1 vial 01/28/16 16:30 05/08/16 06:18 Novolog Vial Sliding Scale - SQ 2 units BIDI KWAKU Administration Protocol Insulin Detemir 14 units 05/05/16 22:00 05/07/16 21:46 Levemir Vial SQ 14 units HS KWAKU Administration Lactobacillus Acidophilus 1 tab 12/30/15 10:00 05/08/16 10:37 Bacid - PO 1 tab DAILY KWAKU Administration Lisinopril 40 mg 12/30/15 10:00 05/08/16 10:38 Prinivil - GT 40 mg DAILY KWAKU Administration Metoprolol Tartrate 150 mg 12/29/15 22:00 05/08/16 10:37 Lopressor - GT 150 mg BID KWAKU Administration Metoprolol Tartrate 5 mg 12/29/15 10:43 Lopressor Injection - IVPB Q6H PRN HYPERTENSION Multivitamins 5 ml 12/30/15 10:00 05/08/16 10:38 Thera-Plus - GT 5 ml DAILY KWAKU Administration Pantoprazole Sodium 40 mg 12/30/15 10:00 05/08/16 10:37 Protonix Packets For Oral Suspension - GT 40 mg DAILY KWAKU Administration Scopolamine HBr 1 patch 05/01/16 17:30 05/07/16 17:21 Transderm-Scop - TD 1 patch Q72H KWAKU Administration Objective: Vital Signs Period Temp Pulse Resp BP Sys/Santiago Pulse Ox Last 24 Hr 98.8 F-99.6 F 72-96 18-20 149-162/71-92 95-96 Physical Exam: General: No acute distress Neuro: Eye tracking to verbal stimulus Pulm: Tach collar, rhonchi throughout CV: RRR, S1S2 Abd: Soft, non-tender, non-distended. Normoactive bowel sounds. Peg tube c/d/i Ext: Warm, well-perfused. 2+ DP/PT bilaterally CBCD WBC 7.7 K/mm3 (4.0-10.0) 05/07/16 08:00 RBC 3.76 M/mm3 (4.00-5.60) L 05/07/16 08:00 Hgb 10.5 GM/dL (11.7-16.9) L 05/07/16 08:00 Hct 32.0 % (35.4-49) L 05/07/16 08:00 MCV 85.3 fl (80-96) 05/07/16 08:00 MCHC 32.8 g/dl (32.0-35.9) 05/07/16 08:00 RDW 16.5 % (11.9-15.9) H 05/07/16 08:00 Plt Count 167 K/MM3 (134-434) 05/07/16 08:00 MPV 8.6 fl (7.5-11.1) 05/07/16 08:00 CMP Sodium 136 mmol/L (136-145) 05/07/16 08:00 Potassium 3.9 mmol/L (3.5-5.1) 05/07/16 08:00 Chloride 99 mmol/L (98-107) 05/07/16 08:00 Carbon Dioxide 30 mmol/L (21-32) 05/07/16 08:00 Anion Gap 7 (8-16) L 05/07/16 08:00 BUN 19 mg/dL (7-18) H 05/07/16 08:00 Creatinine 0.8 mg/dL (0.7-1.3) 05/07/16 08:00 Creat Clearance w eGFR > 60 (>60) 05/07/16 08:00 Random Glucose 124 mg/dL (74-106) H 05/07/16 08:00 Calcium 9.6 mg/dL (8.5-10.1) 05/07/16 08:00 Total Bilirubin 0.3 mg/dL (0.2-1.0) D 05/07/16 08:00 AST 17 U/L (15-37) 05/07/16 08:00 ALT 40 U/L (12-78) D 05/07/16 08:00 Alkaline Phosphatase 147 U/L (45-117) H 05/07/16 08:00 Total Protein 8.1 g/dl (6.4-8.2) 05/07/16 08:00 Albumin 3.5 g/dl (3.4-5.0) 05/07/16 08:00 CARDIAC ENZYMES Creatine Kinase 62 IU/L (38-174) 06/28/15 09:35 Troponin I 0.07 ng/ml (0.03-0.5) D 07/09/15 05:00 Microbiology 05/05/16 11:00 Blood - Peripheral Venous Blood Culture - Preliminary NO GROWTH OBTAINED AFTER 72 HOURS, INCUBATION TO CONTINUE FOR 2 DAYS. 05/05/16 11:00 Blood - Peripheral Venous Blood Culture - Preliminary NO GROWTH OBTAINED AFTER 72 HOURS, INCUBATION TO CONTINUE FOR 2 DAYS. 05/05/16 19:00 Sputum - Endotracheal Suction W/O Vent Gram Stain - Final 05/05/16 19:00 Sputum - Endotracheal Suction W/O Vent Sputum Culture - Final Pseudomonas Aeruginosa 05/03/16 13:08 Blood - Peripheral Venous Blood Culture - Preliminary NO GROWTH OBTAINED AFTER 96 HOURS, INCUBATION TO CONTINUE FOR 1 DAYS. 05/03/16 13:08 Blood - Peripheral Venous Blood Culture - Preliminary NO GROWTH OBTAINED AFTER 96 HOURS, INCUBATION TO CONTINUE FOR 1 DAYS. 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 Plan: 1. Fever s/p vomiting - Afebrile since 05/05 - Sputum culture with pseudomonas aeruginosa, resistant to ceftazidime. Dr. Fragoso aware and recommends continuing current treatment plan - Chest X-ray with no evidence of infiltrates - UA negative - Urine culture with no growth - C.diff negative - F/u blood cultures from 05/05, NGTD - Appreciate ID consult 2. Anoxic brain injury s/p brainstem CVAs - Mental status unchanged 3. Respiratory failure secondary to anoxic brain injury - Cont trach collar - Duonebs PRN 4. HTN - Continue lisinopril, metoprolol, amlodipine 5. Multiple pressure ulcers - Turn and position q2h 6. IDDM - Restart Levemir at 14u sq qhs - ISS BGM ACHS 7. F/E/N: - Tube feeds: increase slowly until at goal of 60ml/hr 8. Prophylaxis: - SCDs bilaterally - No chemical anticoagulation 2/2 spontaneous gluteal bleed and severe GI bleed - PT for passive ROM CODE STATUS: DNR
[2016-05-09] MEDS: INSULIN DETEMIR 100 UNITS/ML MDV SQ SCH (22:27)
[2016-05-10] MEDS: CEFTAZIDIME PENTAHYDRATE 2 GM in DEXTROSE 5%-WATER - 100 ML IVPB SCH ×3 (02:09→17:58)
[2016-05-10] MEDS: INSULIN SLIDING SCALE (NOVOLOG) 1 VIAL SQ SCH ×2 (06:37→17:58)
[2016-05-10] MEDS: LISINOPRIL 20 MG TABLET (FP) GT SCH (12:28)
[2016-05-10] MEDS: amLODIPine BESYLATE 10 MG TABLET (FP) GT SCH (12:29)
[2016-05-10] MEDS: LACTOBACILLUS ACIDOPHILUS 1 EACH TAB (FP) PO SCH (12:29)
[2016-05-10] MEDS: PANTOPRAZOLE SOD 40 MG SUSPENSION PACKET GT SCH (12:29)
[2016-05-10] MEDS: METOPROLOL TARTRATE 50 MG TABLET (FP) GT SCH ×2 (12:29→22:36)
[2016-05-10] MEDS: MULTIVITAMINS THERAPEUTIC GT SCH (12:30)
--- NOTE | 2016-05-10 13:29 | PN ---
Progress Note (short form) - Note Progress Note: Subjective: Pt seen and examined at bedside. He is non-verbal. Tmax 99.8 Current Medications Generic Name Dose Route Start Last Admin Trade Name Freq PRN Reason Stop Dose Admin Acetaminophen 650 mg 12/29/15 10:43 05/05/16 06:30 Tylenol Oral Solution - GT 650 mg Q6H PRN Administration FEVER Albuterol/Ipratropium 1 amp 05/02/16 11:51 05/07/16 10:41 Duoneb - NEB 1 amp Q6H PRN Administration SHORTNESS OF BREATH Amlodipine Besylate 10 mg 12/30/15 10:00 05/10/16 12:29 Norvasc - GT 10 mg DAILY KWAKU Administration Guaifenesin 10 ml 12/29/15 10:43 03/17/16 21:49 Robitussin Dm - PO 10 ml Q6H PRN Administration COUGH Ceftazidime 2 gm/ Dextrose 100 mls @ 200 mls/hr 05/05/16 18:00 05/10/16 02:09 IVPB 200 mls/hr Q8H-IV KWAKU Administration Ibuprofen 200 mg 12/29/15 10:43 04/03/16 21:38 Motrin Oral Suspension - PO 200 mg Q6H PRN Administration FEVER Insulin Aspart 1 vial 01/28/16 16:30 05/10/16 06:37 Novolog Vial Sliding Scale - SQ Not Given BIDI COUNT INCLUDES THE [facility] Protocol Insulin Detemir 14 units 05/05/16 22:00 05/09/16 22:27 Levemir Vial SQ 14 units HS KWAKU Administration Lactobacillus Acidophilus 1 tab 12/30/15 10:00 05/10/16 12:29 Bacid - PO 1 tab DAILY KWAKU Administration Lisinopril 40 mg 12/30/15 10:00 05/10/16 12:28 Prinivil - GT 40 mg DAILY KWAKU Administration Metoprolol Tartrate 150 mg 12/29/15 22:00 05/10/16 12:29 Lopressor - GT 150 mg BID KWAKU Administration Metoprolol Tartrate 5 mg 12/29/15 10:43 Lopressor Injection - IVPB Q6H PRN HYPERTENSION Multivitamins 5 ml 12/30/15 10:00 05/10/16 12:30 Thera-Plus - GT 5 ml DAILY KWAKU Administration Pantoprazole Sodium 40 mg 12/30/15 10:00 05/10/16 12:29 Protonix Packets For Oral Suspension - GT 40 mg DAILY KWAKU Administration Scopolamine HBr 1 patch 05/01/16 17:30 05/07/16 17:21 Transderm-Scop - TD 1 patch Q72H KWAKU Administration Objective: Vital Signs Period Temp Pulse Resp BP Sys/Santiago Pulse Ox Last 24 Hr 98.9 F-99.8 F 60-79 18-20 131-149/68-77 97 Physical Exam: General: No acute distress Neuro: Eye tracking to verbal stimulus Pulm: Tach collar, rhonchi throughout CV: RRR, S1S2 Abd: Soft, non-tender, non-distended. Normoactive bowel sounds. Peg tube c/d/i Ext: Warm, well-perfused. 2+ DP/PT bilaterally CBCD WBC 7.7 K/mm3 (4.0-10.0) 05/07/16 08:00 RBC 3.76 M/mm3 (4.00-5.60) L 05/07/16 08:00 Hgb 10.5 GM/dL (11.7-16.9) L 05/07/16 08:00 Hct 32.0 % (35.4-49) L 05/07/16 08:00 MCV 85.3 fl (80-96) 05/07/16 08:00 MCHC 32.8 g/dl (32.0-35.9) 05/07/16 08:00 RDW 16.5 % (11.9-15.9) H 05/07/16 08:00 Plt Count 167 K/MM3 (134-434) 05/07/16 08:00 MPV 8.6 fl (7.5-11.1) 05/07/16 08:00 CMP Sodium 136 mmol/L (136-145) 05/07/16 08:00 Potassium 3.9 mmol/L (3.5-5.1) 05/07/16 08:00 Chloride 99 mmol/L (98-107) 05/07/16 08:00 Carbon Dioxide 30 mmol/L (21-32) 05/07/16 08:00 Anion Gap 7 (8-16) L 05/07/16 08:00 BUN 19 mg/dL (7-18) H 05/07/16 08:00 Creatinine 0.8 mg/dL (0.7-1.3) 05/07/16 08:00 Creat Clearance w eGFR > 60 (>60) 05/07/16 08:00 Random Glucose 124 mg/dL (74-106) H 05/07/16 08:00 Calcium 9.6 mg/dL (8.5-10.1) 05/07/16 08:00 Total Bilirubin 0.3 mg/dL (0.2-1.0) D 05/07/16 08:00 AST 17 U/L (15-37) 05/07/16 08:00 ALT 40 U/L (12-78) D 05/07/16 08:00 Alkaline Phosphatase 147 U/L (45-117) H 05/07/16 08:00 Total Protein 8.1 g/dl (6.4-8.2) 05/07/16 08:00 Albumin 3.5 g/dl (3.4-5.0) 05/07/16 08:00 CARDIAC ENZYMES Creatine Kinase 62 IU/L (38-174) 06/28/15 09:35 Troponin I 0.07 ng/ml (0.03-0.5) D 07/09/15 05:00 Microbiology 05/05/16 11:00 Blood - Peripheral Venous Blood Culture - Preliminary NO GROWTH OBTAINED AFTER 72 HOURS, INCUBATION TO CONTINUE FOR 2 DAYS. 05/05/16 11:00 Blood - Peripheral Venous Blood Culture - Preliminary NO GROWTH OBTAINED AFTER 72 HOURS, INCUBATION TO CONTINUE FOR 2 DAYS. 05/05/16 19:00 Sputum - Endotracheal Suction W/O Vent Gram Stain - Final 05/05/16 19:00 Sputum - Endotracheal Suction W/O Vent Sputum Culture - Final Pseudomonas Aeruginosa 05/03/16 13:08 Blood - Peripheral Venous Blood Culture - Preliminary NO GROWTH OBTAINED AFTER 96 HOURS, INCUBATION TO CONTINUE FOR 1 DAYS. 05/03/16 13:08 Blood - Peripheral Venous Blood Culture - Preliminary NO GROWTH OBTAINED AFTER 96 HOURS, INCUBATION TO CONTINUE FOR 1 DAYS. 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 Plan: 1. Fever s/p vomiting - Afebrile since 05/05 - Sputum culture with pseudomonas aeruginosa, resistant to ceftazidime. Dr. Fragoso aware and recommends continuing current treatment plan, day 03/04 - Chest X-ray with no evidence of infiltrates - UA negative - Urine culture with no growth - C.diff negative - F/u blood cultures from 05/05, NGTD - Appreciate ID consult 2. Anoxic brain injury s/p brainstem CVAs - Mental status unchanged 3. Respiratory failure secondary to anoxic brain injury - Cont trach collar - Duonebs PRN 4. HTN - Continue lisinopril, metoprolol, amlodipine 5. Multiple pressure ulcers - Turn and position q2h 6. IDDM - Restart Levemir at 14u sq qhs - ISS BGM ACHS 7. F/E/N: - Tube feeds: increase slowly until at goal of 60ml/hr 8. Prophylaxis: - SCDs bilaterally - No chemical anticoagulation 2/2 spontaneous gluteal bleed and severe GI bleed - PT for passive ROM CODE STATUS: DNR
[2016-05-10] MEDS: SCOPOLAMINE HYDROBROMIDE 1 PATCH PATCH.TD72 TD SCH (17:57)
[2016-05-10] MEDS: INSULIN DETEMIR 100 UNITS/ML MDV SQ SCH (22:35)
[2016-05-11] MEDS: CEFTAZIDIME PENTAHYDRATE 2 GM in DEXTROSE 5%-WATER - 100 ML IVPB SCH ×3 (02:49→17:14)
[2016-05-11] MEDS: INSULIN SLIDING SCALE (NOVOLOG) 1 VIAL SQ SCH ×2 (06:05→16:44)
[2016-05-11 09:26] LABS: MCH 27.6 pg (25.7-33.7); MCHC 32.5 g/dl (32.0-35.9); MEAN PLT VOLUME 9.9 fl (7.5-11.1); RDW 16.5 % (11.9-15.9); WHITE BLOOD COUNT 5.6 K/mm3 (4.0-10.0)
[2016-05-11 09:52] LABS: ALBUMIN 3.2 g/dl (3.4-5.0); ANION GAP 7 (8-16); BILIRUBIN,TOTAL 0.4 mg/dL (0.2-1.0); CALCIUM 9.6 mg/dL (8.5-10.1); CO2 30 mmol/L (21-32); CREATININE 0.8 mg/dL (0.7-1.3); GLUCOSE,RANDOM 143 mg/dL (74-106); SGOT/AST 18 U/L (15-37); SGPT/ALT 32 U/L (12-78); TOT PROT 7.7 g/dl (6.4-8.2)
[2016-05-11 09:53] LABS: ALK PHOS 139 U/L (45-117)
[2016-05-11] MEDS: PANTOPRAZOLE SOD 40 MG SUSPENSION PACKET GT SCH (10:51)
[2016-05-11] MEDS: amLODIPine BESYLATE 10 MG TABLET (FP) GT SCH (10:51)
[2016-05-11] MEDS: LACTOBACILLUS ACIDOPHILUS 1 EACH TAB (FP) PO SCH (10:52)
[2016-05-11] MEDS: LISINOPRIL 20 MG TABLET (FP) GT SCH (10:52)
[2016-05-11] MEDS: METOPROLOL TARTRATE 50 MG TABLET (FP) GT SCH ×2 (10:54→21:31)
[2016-05-11] MEDS: MULTIVITAMINS THERAPEUTIC GT SCH (10:55)
[2016-05-11 11:19] LABS: PLATELET COMMENT2 UNABLE TO ENUMERATE; PLATELET COMMENT3 NO CLOTTING DETECTED; PLATELET ESTIMATE ADEQUATE (NORMAL)
--- NOTE | 2016-05-11 14:25 | PN ---
Progress Note (short form) - Note Progress Note: Hospitalist Progress Note This patient presented to the emergency department and was admitted for further evaluation of their emergent condition. SUBJECTIVE: Pt seen and examined at bedside. He is non-verba OBJECTIVE: Vital Signs Period Temp Pulse Resp BP Sys/Santiago Pulse Ox Last 24 Hr 98.9 F-101.8 F 70-81 20-24 134-157/66-87 97-97 GENERAL: no acute distress PULMONARY: CTAB CARDIOVASCULAR: nS1,S2, RRR, no RMG ABDOMINAL: Soft, non-tender, non-distended. Normoactive bowel sounds. Peg tube c /d/i EXTREMITIES: warm, well perfused, no edema NEUROLOGICAL: Eye tracking to verbal stimulus CBCD WBC 5.6 K/mm3 (4.0-10.0) 05/11/16 09:15 RBC 3.84 M/mm3 (4.00-5.60) L 05/11/16 09:15 Hgb 10.6 GM/dL (11.7-16.9) L 05/11/16 09:15 Hct 32.6 % (35.4-49) L 05/11/16 09:15 MCV 85.0 fl (80-96) 05/11/16 09:15 MCHC 32.5 g/dl (32.0-35.9) 05/11/16 09:15 RDW 16.5 % (11.9-15.9) H 05/11/16 09:15 Plt Count Y 05/11/16 09:15 MPV 9.9 fl (7.5-11.1) D 05/11/16 09:15 CMP Sodium 137 mmol/L (136-145) 05/11/16 09:15 Potassium 3.8 mmol/L (3.5-5.1) 05/11/16 09:15 Chloride 100 mmol/L (98-107) 05/11/16 09:15 Carbon Dioxide 30 mmol/L (21-32) 05/11/16 09:15 Anion Gap 7 (8-16) L 05/11/16 09:15 BUN 17 mg/dL (7-18) 05/11/16 09:15 Creatinine 0.8 mg/dL (0.7-1.3) 05/11/16 09:15 Creat Clearance w eGFR > 60 (>60) 05/11/16 09:15 Calcium 9.6 mg/dL (8.5-10.1) 05/11/16 09:15 Total Bilirubin 0.4 mg/dL (0.2-1.0) D 05/11/16 09:15 AST 18 U/L (15-37) 05/11/16 09:15 ALT 32 U/L (12-78) 05/11/16 09:15 Alkaline Phosphatase 139 U/L (45-117) H 05/11/16 09:15 Total Protein 7.7 g/dl (6.4-8.2) 05/11/16 09:15 Albumin 3.2 g/dl (3.4-5.0) L 05/11/16 09:15 Current Medications Generic Name Dose Route Start Last Admin Trade Name Freq PRN Reason Stop Dose Admin Acetaminophen 650 mg 12/29/15 10:43 05/05/16 06:30 Tylenol Oral Solution - GT 650 mg Q6H PRN Administration FEVER Albuterol/Ipratropium 1 amp 05/02/16 11:51 05/07/16 10:41 Duoneb - NEB 1 amp Q6H PRN Administration SHORTNESS OF BREATH Amlodipine Besylate 10 mg 12/30/15 10:00 05/11/16 10:51 Norvasc - GT 10 mg DAILY KWAKU Administration Guaifenesin 10 ml 12/29/15 10:43 03/17/16 21:49 Robitussin Dm - PO 10 ml Q6H PRN Administration COUGH Ceftazidime 2 gm/ Dextrose 100 mls @ 200 mls/hr 05/05/16 18:00 05/11/16 10:52 IVPB 200 mls/hr Q8H-IV KWAKU Administration Ibuprofen 200 mg 12/29/15 10:43 04/03/16 21:38 Motrin Oral Suspension - PO 200 mg Q6H PRN Administration FEVER Insulin Aspart 1 vial 01/28/16 16:30 05/11/16 06:05 Novolog Vial Sliding Scale - SQ Not Given BIDI [facility] Protocol Insulin Detemir 14 units 05/05/16 22:00 05/10/16 22:35 Levemir Vial SQ 14 units HS KWAKU Administration Lactobacillus Acidophilus 1 tab 12/30/15 10:00 05/11/16 10:52 Bacid - PO 1 tab DAILY KWAKU Administration Lisinopril 40 mg 12/30/15 10:00 05/11/16 10:52 Prinivil - GT 40 mg DAILY KWAKU Administration Metoprolol Tartrate 150 mg 12/29/15 22:00 05/11/16 10:54 Lopressor - GT 150 mg BID KWAKU Administration Metoprolol Tartrate 5 mg 12/29/15 10:43 Lopressor Injection - IVPB Q6H PRN HYPERTENSION Multivitamins 5 ml 12/30/15 10:00 05/11/16 10:55 Thera-Plus - GT 5 ml DAILY KWAKU Administration Pantoprazole Sodium 40 mg 12/30/15 10:00 05/11/16 10:51 Protonix Packets For Oral Suspension - GT 40 mg DAILY KWAKU Administration Scopolamine HBr 1 patch 05/01/16 17:30 05/10/16 17:57 Transderm-Scop - TD 1 patch Q72H KWAKU Administration Microbiology 05/05/16 11:00 Blood Culture - Final Blood - Peripheral Venous NO GROWTH AFTER 5 DAYS INCUBATION 05/05/16 11:00 Blood Culture - Final Blood - Peripheral Venous NO GROWTH AFTER 5 DAYS INCUBATION ASSESSMENT/PLAN: 75 year old male with PMHx of HTN, IDDM, inguinal hernia who presented to the ED with diverticular bleed s/p Righ hemicolectomy with 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 1. Fever s/p vomiting - Afebrile since 05/05 - Sputum culture with pseudomonas aeruginosa, resistant to ceftazidime. Dr. Fragoso aware and recommends continuing current treatment plan, day 04/04 - Chest X-ray with no evidence of infiltrates - UA negative - Urine culture with no growth - C.diff negative - F/u blood cultures from 05/05, NGTD - Appreciate ID consult 2. Anoxic brain injury s/p brainstem CVAs - Mental status unchanged 3. Respiratory failure secondary to anoxic brain injury - Cont trach collar - Duonebs PRN 4. HTN - Continue lisinopril, metoprolol, amlodipine 5. Multiple pressure ulcers - Turn and position q2h 6. IDDM - Levemir at 14u sq qhs - ISS BGM ACHS 7. F/E/N: - Tube feeds: goal of 60ml/hr 8. Prophylaxis: - SCDs bilaterally - No chemical anticoagulation 2/2 spontaneous gluteal bleed and severe GI bleed - PT for passive ROM CODE STATUS: DNR
[2016-05-11] MEDS: INSULIN DETEMIR 100 UNITS/ML MDV SQ SCH (21:31)
[2016-05-12] MEDS: CEFTAZIDIME PENTAHYDRATE 2 GM in DEXTROSE 5%-WATER - 100 ML IVPB SCH ×3 (03:02→17:11)
[2016-05-12] MEDS: INSULIN SLIDING SCALE (NOVOLOG) 1 VIAL SQ SCH ×2 (06:11→17:19)
[2016-05-12 09:32] LABS: BASOPHIL 0.8 % (0-2.0); EOSINOPHIL 5.9 % (0-4.5); MCH 27.3 pg (25.7-33.7); MEAN CELL VOLUME 85.4 fl (80-96); MEAN PLT VOLUME 9.3 fl (7.5-11.1); NEUTROPHILS 60.6 % (42.8-82.8); PLATELET COUNT 169 K/MM3 (134-434); RDW 16.4 % (11.9-15.9); WHITE BLOOD COUNT 6.6 K/mm3 (4.0-10.0)
[2016-05-12 10:05] LABS: CALCIUM 9.7 mg/dL (8.5-10.1); CREATININE 0.8 mg/dL (0.7-1.3)
--- NOTE | 2016-05-12 11:44 | PN ---
Progress Note (short form) - Note Progress Note: Hospitalist Progress Note This patient presented to the emergency department and was admitted for further evaluation of their emergent condition. SUBJECTIVE: Pt seen and examined at bedside. He is non-verbal. No acute distress. OBJECTIVE: Vital Signs Period Temp Pulse Resp BP Sys/Santiago Pulse Ox Last 24 Hr 98.2 F-98.6 F 74-80 20-20 144-145/74-75 97-98 GENERAL: no acute distress PULMONARY: rhonchi bilaterally CARDIOVASCULAR: nS1,S2, RRR, no RMG ABDOMINAL: Soft, non-tender, non-distended. Normoactive bowel sounds. Peg tube c /d/i EXTREMITIES: warm, well perfused, no edema NEUROLOGICAL: opens eyes to verbal and tactile stimulus CBCD WBC 6.6 K/mm3 (4.0-10.0) 05/12/16 06:00 RBC 3.92 M/mm3 (4.00-5.60) L 05/12/16 06:00 Hgb 10.7 GM/dL (11.7-16.9) L 05/12/16 06:00 Hct 33.5 % (35.4-49) L 05/12/16 06:00 MCV 85.4 fl (80-96) 05/12/16 06:00 MCHC 32.0 g/dl (32.0-35.9) 05/12/16 06:00 RDW 16.4 % (11.9-15.9) H 05/12/16 06:00 Plt Count 169 K/MM3 (134-434) 05/12/16 06:00 MPV 9.3 fl (7.5-11.1) 05/12/16 06:00 CMP Sodium 139 mmol/L (136-145) 05/12/16 06:00 Potassium 3.8 mmol/L (3.5-5.1) 05/12/16 06:00 Chloride 100 mmol/L (98-107) 05/12/16 06:00 Carbon Dioxide 30 mmol/L (21-32) 05/12/16 06:00 Anion Gap 9 (8-16) 05/12/16 06:00 BUN 18 mg/dL (7-18) 05/12/16 06:00 Creatinine 0.8 mg/dL (0.7-1.3) 05/12/16 06:00 Creat Clearance w eGFR > 60 (>60) 05/11/16 09:15 Calcium 9.7 mg/dL (8.5-10.1) 05/12/16 06:00 Total Bilirubin 0.4 mg/dL (0.2-1.0) D 05/11/16 09:15 AST 18 U/L (15-37) 05/11/16 09:15 ALT 32 U/L (12-78) 05/11/16 09:15 Alkaline Phosphatase 139 U/L (45-117) H 05/11/16 09:15 Total Protein 7.7 g/dl (6.4-8.2) 05/11/16 09:15 Albumin 3.2 g/dl (3.4-5.0) L 05/11/16 09:15 Current Medications Generic Name Dose Route Start Last Admin Trade Name Freq PRN Reason Stop Dose Admin Acetaminophen 650 mg 12/29/15 10:43 05/05/16 06:30 Tylenol Oral Solution - GT 650 mg Q6H PRN Administration FEVER Albuterol/Ipratropium 1 amp 05/02/16 11:51 05/07/16 10:41 Duoneb - NEB 1 amp Q6H PRN Administration SHORTNESS OF BREATH Amlodipine Besylate 10 mg 12/30/15 10:00 05/11/16 10:51 Norvasc - GT 10 mg DAILY KWAKU Administration Guaifenesin 10 ml 12/29/15 10:43 03/17/16 21:49 Robitussin Dm - PO 10 ml Q6H PRN Administration COUGH Ceftazidime 2 gm/ Dextrose 100 mls @ 200 mls/hr 05/05/16 18:00 05/12/16 03:02 IVPB 200 mls/hr Q8H-IV KWAKU Administration Ibuprofen 200 mg 12/29/15 10:43 04/03/16 21:38 Motrin Oral Suspension - PO 200 mg Q6H PRN Administration FEVER Insulin Aspart 1 vial 01/28/16 16:30 05/12/16 06:11 Novolog Vial Sliding Scale - SQ Not Given BIDI [facility] Protocol Insulin Detemir 14 units 05/05/16 22:00 05/11/16 21:31 Levemir Vial SQ 14 units HS KWAKU Administration Lactobacillus Acidophilus 1 tab 12/30/15 10:00 05/11/16 10:52 Bacid - PO 1 tab DAILY KWAKU Administration Lisinopril 40 mg 12/30/15 10:00 05/11/16 10:52 Prinivil - GT 40 mg DAILY KWAKU Administration Metoprolol Tartrate 150 mg 12/29/15 22:00 05/11/16 21:31 Lopressor - GT 150 mg BID KWAKU Administration Metoprolol Tartrate 5 mg 12/29/15 10:43 Lopressor Injection - IVPB Q6H PRN HYPERTENSION Multivitamins 5 ml 12/30/15 10:00 05/11/16 10:55 Thera-Plus - GT 5 ml DAILY KWAKU Administration Pantoprazole Sodium 40 mg 12/30/15 10:00 05/11/16 10:51 Protonix Packets For Oral Suspension - GT 40 mg DAILY KWAKU Administration Scopolamine HBr 1 patch 05/01/16 17:30 05/10/16 17:57 Transderm-Scop - TD 1 patch Q72H KWAKU Administration ASSESSMENT/PLAN: 75 year old male with PMHx of HTN, IDDM, inguinal hernia who presented to the ED with diverticular bleed s/p Righ hemicolectomy with 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 Fever s/p vomiting - Afebrile since 05/05 - Sputum culture with pseudomonas aeruginosa, resistant to ceftazidime. Dr. Fragoso aware and recommends continuing current treatment plan, day 6 - Chest X-ray with no evidence of infiltrates - UA negative - Urine culture with no growth - C.diff negative - F/u blood cultures from 05/05, NGTD - Appreciate ID consult Anoxic brain injury s/p brainstem CVAs - Mental status unchanged Respiratory failure secondary to anoxic brain injury - Cont trach collar - Duonebs PRN HTN - Continue lisinopril, metoprolol, amlodipine Multiple pressure ulcers - Turn and position q2h IDDM - Levemir at 14u sq qhs - ISS BGM ACHS F/E/N: - Tube feeds: goal of 60ml/hr Prophylaxis: - SCDs bilaterally - No chemical anticoagulation 2/2 spontaneous gluteal bleed and severe GI bleed - PT for passive ROM CODE STATUS: DNR
[2016-05-12] MEDS: LISINOPRIL 20 MG TABLET (FP) GT SCH (12:19)
[2016-05-12] MEDS: PANTOPRAZOLE SOD 40 MG SUSPENSION PACKET GT SCH (12:19)
[2016-05-12] MEDS: METOPROLOL TARTRATE 50 MG TABLET (FP) GT SCH ×3 (12:20→22:01)
[2016-05-12] MEDS: LACTOBACILLUS ACIDOPHILUS 1 EACH TAB (FP) PO SCH (12:20)
[2016-05-12] MEDS: amLODIPine BESYLATE 10 MG TABLET (FP) GT SCH (12:20)
[2016-05-12] MEDS: MULTIVITAMINS THERAPEUTIC GT SCH (12:21)
[2016-05-12] MEDS: guaiFENesin/D-METHORPHAN HB 10 ML UNIT-DOSE CUPS PO PRN (17:11)
[2016-05-12] MEDS: INSULIN DETEMIR 100 UNITS/ML MDV SQ SCH ×2 (21:59→22:02)
[2016-05-13] MEDS: INSULIN SLIDING SCALE (NOVOLOG) 1 VIAL SQ SCH ×2 (06:10→16:44)
[2016-05-13] MEDS: PANTOPRAZOLE SOD 40 MG SUSPENSION PACKET GT SCH (10:38)
[2016-05-13] MEDS: amLODIPine BESYLATE 10 MG TABLET (FP) GT SCH (10:38)
[2016-05-13] MEDS: LACTOBACILLUS ACIDOPHILUS 1 EACH TAB (FP) PO SCH (10:38)
[2016-05-13] MEDS: METOPROLOL TARTRATE 50 MG TABLET (FP) GT SCH ×2 (10:38→21:02)
[2016-05-13] MEDS: MULTIVITAMINS THERAPEUTIC GT SCH (10:38)
[2016-05-13] MEDS: LISINOPRIL 20 MG TABLET (FP) GT SCH (10:38)
--- NOTE | 2016-05-13 11:08 | PN ---
Progress Note (short form) - Note Progress Note: Subjective: Pt seen and examined at bedside. He is non-verbal. Tmax 99.8 Current Medications Generic Name Dose Route Start Last Admin Trade Name Freq PRN Reason Stop Dose Admin Acetaminophen 650 mg 12/29/15 10:43 05/05/16 06:30 Tylenol Oral Solution - GT 650 mg Q6H PRN Administration FEVER Albuterol/Ipratropium 1 amp 05/02/16 11:51 05/07/16 10:41 Duoneb - NEB 1 amp Q6H PRN Administration SHORTNESS OF BREATH Amlodipine Besylate 10 mg 12/30/15 10:00 05/10/16 12:29 Norvasc - GT 10 mg DAILY KWAKU Administration Guaifenesin 10 ml 12/29/15 10:43 03/17/16 21:49 Robitussin Dm - PO 10 ml Q6H PRN Administration COUGH Ceftazidime 2 gm/ Dextrose 100 mls @ 200 mls/hr 05/05/16 18:00 05/10/16 02:09 IVPB 200 mls/hr Q8H-IV KWAKU Administration Ibuprofen 200 mg 12/29/15 10:43 04/03/16 21:38 Motrin Oral Suspension - PO 200 mg Q6H PRN Administration FEVER Insulin Aspart 1 vial 01/28/16 16:30 05/10/16 06:37 Novolog Vial Sliding Scale - SQ Not Given BIDI [facility] Protocol Insulin Detemir 14 units 05/05/16 22:00 05/09/16 22:27 Levemir Vial SQ 14 units HS KWAKU Administration Lactobacillus Acidophilus 1 tab 12/30/15 10:00 05/10/16 12:29 Bacid - PO 1 tab DAILY KWAKU Administration Lisinopril 40 mg 12/30/15 10:00 05/10/16 12:28 Prinivil - GT 40 mg DAILY KWAUK Administration Metoprolol Tartrate 150 mg 12/29/15 22:00 05/10/16 12:29 Lopressor - GT 150 mg BID KWAKU Administration Metoprolol Tartrate 5 mg 12/29/15 10:43 Lopressor Injection - IVPB Q6H PRN HYPERTENSION Multivitamins 5 ml 12/30/15 10:00 05/10/16 12:30 Thera-Plus - GT 5 ml DAILY KWAKU Administration Pantoprazole Sodium 40 mg 12/30/15 10:00 05/10/16 12:29 Protonix Packets For Oral Suspension - GT 40 mg DAILY KWAKU Administration Scopolamine HBr 1 patch 05/01/16 17:30 05/07/16 17:21 Transderm-Scop - TD 1 patch Q72H KWAKU Administration Objective: Vital Signs Period Temp Pulse Resp BP Sys/Santiago Pulse Ox Last 24 Hr 98.9 F-99.8 F 60-79 18-20 131-149/68-77 97 Physical Exam: General: No acute distress Neuro: Eye tracking to verbal stimulus Pulm: Tach collar, rhonchi throughout CV: RRR, S1S2 Abd: Soft, non-tender, non-distended. Normoactive bowel sounds. Peg tube c/d/i Ext: Warm, well-perfused. 2+ DP/PT bilaterally CBCD WBC 7.7 K/mm3 (4.0-10.0) 05/07/16 08:00 RBC 3.76 M/mm3 (4.00-5.60) L 05/07/16 08:00 Hgb 10.5 GM/dL (11.7-16.9) L 05/07/16 08:00 Hct 32.0 % (35.4-49) L 05/07/16 08:00 MCV 85.3 fl (80-96) 05/07/16 08:00 MCHC 32.8 g/dl (32.0-35.9) 05/07/16 08:00 RDW 16.5 % (11.9-15.9) H 05/07/16 08:00 Plt Count 167 K/MM3 (134-434) 05/07/16 08:00 MPV 8.6 fl (7.5-11.1) 05/07/16 08:00 CMP Sodium 136 mmol/L (136-145) 05/07/16 08:00 Potassium 3.9 mmol/L (3.5-5.1) 05/07/16 08:00 Chloride 99 mmol/L (98-107) 05/07/16 08:00 Carbon Dioxide 30 mmol/L (21-32) 05/07/16 08:00 Anion Gap 7 (8-16) L 05/07/16 08:00 BUN 19 mg/dL (7-18) H 05/07/16 08:00 Creatinine 0.8 mg/dL (0.7-1.3) 05/07/16 08:00 Creat Clearance w eGFR > 60 (>60) 05/07/16 08:00 Random Glucose 124 mg/dL (74-106) H 05/07/16 08:00 Calcium 9.6 mg/dL (8.5-10.1) 05/07/16 08:00 Total Bilirubin 0.3 mg/dL (0.2-1.0) D 05/07/16 08:00 AST 17 U/L (15-37) 05/07/16 08:00 ALT 40 U/L (12-78) D 05/07/16 08:00 Alkaline Phosphatase 147 U/L (45-117) H 05/07/16 08:00 Total Protein 8.1 g/dl (6.4-8.2) 05/07/16 08:00 Albumin 3.5 g/dl (3.4-5.0) 05/07/16 08:00 CARDIAC ENZYMES Creatine Kinase 62 IU/L (38-174) 06/28/15 09:35 Troponin I 0.07 ng/ml (0.03-0.5) D 07/09/15 05:00 Microbiology 05/05/16 11:00 Blood - Peripheral Venous Blood Culture - Preliminary NO GROWTH OBTAINED AFTER 72 HOURS, INCUBATION TO CONTINUE FOR 2 DAYS. 05/05/16 11:00 Blood - Peripheral Venous Blood Culture - Preliminary NO GROWTH OBTAINED AFTER 72 HOURS, INCUBATION TO CONTINUE FOR 2 DAYS. 05/05/16 19:00 Sputum - Endotracheal Suction W/O Vent Gram Stain - Final 05/05/16 19:00 Sputum - Endotracheal Suction W/O Vent Sputum Culture - Final Pseudomonas Aeruginosa 05/03/16 13:08 Blood - Peripheral Venous Blood Culture - Preliminary NO GROWTH OBTAINED AFTER 96 HOURS, INCUBATION TO CONTINUE FOR 1 DAYS. 05/03/16 13:08 Blood - Peripheral Venous Blood Culture - Preliminary NO GROWTH OBTAINED AFTER 96 HOURS, INCUBATION TO CONTINUE FOR 1 DAYS. 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 Plan: 1. Fever s/p vomiting on 05/01 - Afebrile since 05/10 - Sputum culture with pseudomonas aeruginosa, resistant to ceftazidime. Dr. Fragoso aware and recommends continuing current treatment plan, completed Ceftazidime 7 days - Appreciate ID consult 2. Anoxic brain injury s/p brainstem CVAs - Mental status unchanged 3. Respiratory failure secondary to anoxic brain injury - Cont trach collar - Duonebs PRN 4. HTN - Continue lisinopril, metoprolol, amlodipine 5. Multiple pressure ulcers - Turn and position q2h 6. IDDM - Continue Levemir at 14u sq qhs - ISS BGM ACHS 7. F/E/N: - Tube feeds: increase slowly until at goal of 60ml/hr 8. Prophylaxis: - SCDs bilaterally - No chemical anticoagulation 2/2 spontaneous gluteal bleed and severe GI bleed - PT for passive ROM CODE STATUS: DNR
[2016-05-13] MEDS: SCOPOLAMINE HYDROBROMIDE 1 PATCH PATCH.TD72 TD SCH (18:19)
[2016-05-13] MEDS: INSULIN DETEMIR 100 UNITS/ML MDV SQ SCH (21:02)
[2016-05-14] MEDS: INSULIN SLIDING SCALE (NOVOLOG) 1 VIAL SQ SCH ×2 (06:18→17:23)
[2016-05-14] MEDS: LISINOPRIL 20 MG TABLET (FP) GT SCH (09:53)
[2016-05-14] MEDS: amLODIPine BESYLATE 10 MG TABLET (FP) GT SCH (09:53)
[2016-05-14] MEDS: METOPROLOL TARTRATE 50 MG TABLET (FP) GT SCH ×2 (09:53→23:35)
[2016-05-14] MEDS: LACTOBACILLUS ACIDOPHILUS 1 EACH TAB (FP) PO SCH (09:53)
[2016-05-14] MEDS: MULTIVITAMINS THERAPEUTIC GT SCH (09:53)
[2016-05-14] MEDS: PANTOPRAZOLE SOD 40 MG SUSPENSION PACKET GT SCH (09:53)
--- NOTE | 2016-05-14 11:28 | PN ---
Progress Note (short form) - Note Progress Note: Subjective: Pt seen and examined at bedside. He is non-verbal. Afebrile off abx Current Medications Generic Name Dose Route Start Last Admin Trade Name Freq PRN Reason Stop Dose Admin Acetaminophen 650 mg 12/29/15 10:43 05/05/16 06:30 Tylenol Oral Solution - GT 650 mg Q6H PRN Administration FEVER Albuterol/Ipratropium 1 amp 05/02/16 11:51 05/07/16 10:41 Duoneb - NEB 1 amp Q6H PRN Administration SHORTNESS OF BREATH Amlodipine Besylate 10 mg 12/30/15 10:00 05/14/16 09:53 Norvasc - GT 10 mg DAILY KWAKU Administration Guaifenesin 10 ml 12/29/15 10:43 05/12/16 17:11 Robitussin Dm - PO 10 ml Q6H PRN Administration COUGH Ibuprofen 200 mg 12/29/15 10:43 04/03/16 21:38 Motrin Oral Suspension - PO 200 mg Q6H PRN Administration FEVER Insulin Aspart 1 vial 01/28/16 16:30 05/14/16 06:18 Novolog Vial Sliding Scale - SQ Not Given BIDI [facility] Protocol Insulin Detemir 14 units 05/05/16 22:00 05/13/16 21:02 Levemir Vial SQ 14 units HS KWAKU Administration Lactobacillus Acidophilus 1 tab 12/30/15 10:00 05/14/16 09:53 Bacid - PO 1 tab DAILY KWAKU Administration Lisinopril 40 mg 12/30/15 10:00 05/14/16 09:53 Prinivil - GT 40 mg DAILY KWAKU Administration Metoprolol Tartrate 150 mg 12/29/15 22:00 05/14/16 09:53 Lopressor - GT 150 mg BID KWAKU Administration Metoprolol Tartrate 5 mg 12/29/15 10:43 Lopressor Injection - IVPB Q6H PRN HYPERTENSION Multivitamins 5 ml 12/30/15 10:00 05/14/16 09:53 Thera-Plus - GT 5 ml DAILY KWAKU Administration Pantoprazole Sodium 40 mg 12/30/15 10:00 05/14/16 09:53 Protonix Packets For Oral Suspension - GT 40 mg DAILY KWAKU Administration Scopolamine HBr 1 patch 05/01/16 17:30 05/13/16 18:19 Transderm-Scop - TD 1 patch Q72H KWAKU Administration Objective: Vital Signs Period Temp Pulse Resp BP Sys/Santiago Pulse Ox Last 24 Hr 96.8 F-98.8 F 74-87 20-20 141-148/79-91 98 Physical Exam: General: No acute distress Neuro: Eye tracking to verbal stimulus Pulm: Tach collar, rhonchi throughout CV: RRR, S1S2 Abd: Soft, non-distended. Normoactive bowel sounds. Peg tube c/d/i Ext: Warm, well-perfused. 2+ DP/PT bilaterally CBCD WBC 6.6 K/mm3 (4.0-10.0) 05/12/16 06:00 RBC 3.92 M/mm3 (4.00-5.60) L 05/12/16 06:00 Hgb 10.7 GM/dL (11.7-16.9) L 05/12/16 06:00 Hct 33.5 % (35.4-49) L 05/12/16 06:00 MCV 85.4 fl (80-96) 05/12/16 06:00 MCHC 32.0 g/dl (32.0-35.9) 05/12/16 06:00 RDW 16.4 % (11.9-15.9) H 05/12/16 06:00 Plt Count 169 K/MM3 (134-434) 05/12/16 06:00 MPV 9.3 fl (7.5-11.1) 05/12/16 06:00 CMP Sodium 139 mmol/L (136-145) 05/12/16 06:00 Potassium 3.8 mmol/L (3.5-5.1) 05/12/16 06:00 Chloride 100 mmol/L (98-107) 05/12/16 06:00 Carbon Dioxide 30 mmol/L (21-32) 05/12/16 06:00 Anion Gap 9 (8-16) 05/12/16 06:00 BUN 18 mg/dL (7-18) 05/12/16 06:00 Creatinine 0.8 mg/dL (0.7-1.3) 05/12/16 06:00 Creat Clearance w eGFR > 60 (>60) 05/11/16 09:15 Random Glucose 131 mg/dL (74-106) H 05/12/16 06:00 Calcium 9.7 mg/dL (8.5-10.1) 05/12/16 06:00 Total Bilirubin 0.4 mg/dL (0.2-1.0) D 05/11/16 09:15 AST 18 U/L (15-37) 05/11/16 09:15 ALT 32 U/L (12-78) 05/11/16 09:15 Alkaline Phosphatase 139 U/L (45-117) H 05/11/16 09:15 Total Protein 7.7 g/dl (6.4-8.2) 05/11/16 09:15 Albumin 3.2 g/dl (3.4-5.0) L 05/11/16 09:15 CARDIAC ENZYMES Creatine Kinase 62 IU/L (38-174) 06/28/15 09:35 Troponin I 0.07 ng/ml (0.03-0.5) D 07/09/15 05:00 Microbiology 05/05/16 11:00 Blood - Peripheral Venous Blood Culture - Final NO GROWTH AFTER 5 DAYS INCUBATION 05/05/16 11:00 Blood - Peripheral Venous Blood Culture - Final NO GROWTH AFTER 5 DAYS INCUBATION 05/03/16 13:08 Blood - Peripheral Venous Blood Culture - Final NO GROWTH AFTER 5 DAYS INCUBATION 05/03/16 13:08 Blood - Peripheral Venous Blood Culture - Final NO GROWTH AFTER 5 DAYS INCUBATION 05/05/16 19:00 Sputum - Endotracheal Suction W/O Vent Gram Stain - Final 05/05/16 19:00 Sputum - Endotracheal Suction W/O Vent Sputum Culture - Final Pseudomonas Aeruginosa 05/03/16 19:00 Stool Clostridium difficile Antigen (MACHO) - Final 05/03/16 19:00 Stool Clostridium difficile Toxin Assay - Final 05/03/16 15:00 Urine - Urine - Catheterized Urine Culture - Final NO GROWTH OBTAINED Assessment: 75 year old male with PMHx of HTN, IDDM, inguinal hernia who presented to the ED with diverticular bleed s/p Righ hemicolectomy with 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 Plan: 1. Fever s/p vomiting on 05/01 - Afebrile since 05/10 - Sputum culture with pseudomonas aeruginosa, resistant to ceftazidime. Dr. Fragoso aware and recommends continuing current treatment plan, completed Ceftazidime 7 days - Appreciate ID consult 2. Anoxic brain injury s/p brainstem CVAs - Mental status unchanged 3. Respiratory failure secondary to anoxic brain injury - Cont trach collar - Duonebs PRN 4. HTN - Continue lisinopril, metoprolol, amlodipine 5. Multiple pressure ulcers - Turn and position q2h 6. IDDM - Continue Levemir at 14u sq qhs - ISS BGM ACHS 7. F/E/N: - Tube feeds 8. Prophylaxis: - SCDs bilaterally - No chemical anticoagulation 2/2 spontaneous gluteal bleed and severe GI bleed - PT for passive ROM CODE STATUS: DNR
[2016-05-14] MEDS: INSULIN DETEMIR 100 UNITS/ML MDV SQ SCH (23:35)
[2016-05-15] MEDS: INSULIN SLIDING SCALE (NOVOLOG) 1 VIAL SQ SCH ×2 (06:19→17:37)
[2016-05-15] MEDS: LISINOPRIL 20 MG TABLET (FP) GT SCH (11:56)
[2016-05-15] MEDS: METOPROLOL TARTRATE 50 MG TABLET (FP) GT SCH ×2 (11:56→21:12)
[2016-05-15] MEDS: LACTOBACILLUS ACIDOPHILUS 1 EACH TAB (FP) PO SCH (11:56)
[2016-05-15] MEDS: MULTIVITAMINS THERAPEUTIC GT SCH (11:56)
[2016-05-15] MEDS: amLODIPine BESYLATE 10 MG TABLET (FP) GT SCH (11:56)
[2016-05-15] MEDS: PANTOPRAZOLE SOD 40 MG SUSPENSION PACKET GT SCH (11:56)
--- NOTE | 2016-05-15 14:21 | PN ---
Progress Note (short form) - Note Progress Note: Subjective: Pt seen and examined at bedside. He is non-verbal. Not following commands at this time Current Medications Generic Name Dose Route Start Last Admin Trade Name Freq PRN Reason Stop Dose Admin Acetaminophen 650 mg 12/29/15 10:43 05/05/16 06:30 Tylenol Oral Solution - GT 650 mg Q6H PRN Administration FEVER Albuterol/Ipratropium 1 amp 05/02/16 11:51 05/07/16 10:41 Duoneb - NEB 1 amp Q6H PRN Administration SHORTNESS OF BREATH Amlodipine Besylate 10 mg 12/30/15 10:00 05/15/16 11:56 Norvasc - GT 10 mg DAILY KWAKU Administration Guaifenesin 10 ml 12/29/15 10:43 05/12/16 17:11 Robitussin Dm - PO 10 ml Q6H PRN Administration COUGH Ibuprofen 200 mg 12/29/15 10:43 04/03/16 21:38 Motrin Oral Suspension - PO 200 mg Q6H PRN Administration FEVER Insulin Aspart 1 vial 01/28/16 16:30 05/15/16 06:19 Novolog Vial Sliding Scale - SQ Not Given BIDI [facility] Protocol Insulin Detemir 14 units 05/05/16 22:00 05/14/16 23:35 Levemir Vial SQ 14 units HS KWAKU Administration Lactobacillus Acidophilus 1 tab 12/30/15 10:00 05/15/16 11:56 Bacid - PO 1 tab DAILY KWAKU Administration Lisinopril 40 mg 12/30/15 10:00 05/15/16 11:56 Prinivil - GT 40 mg DAILY KWAKU Administration Metoprolol Tartrate 150 mg 12/29/15 22:00 05/15/16 11:56 Lopressor - GT 150 mg BID KWAKU Administration Metoprolol Tartrate 5 mg 12/29/15 10:43 Lopressor Injection - IVPB Q6H PRN HYPERTENSION Multivitamins 5 ml 12/30/15 10:00 05/15/16 11:56 Thera-Plus - GT 5 ml DAILY KWAKU Administration Pantoprazole Sodium 40 mg 12/30/15 10:00 05/15/16 11:56 Protonix Packets For Oral Suspension - GT 40 mg DAILY KWAKU Administration Scopolamine HBr 1 patch 05/01/16 17:30 05/13/16 18:19 Transderm-Scop - TD 1 patch Q72H KWAKU Administration Objective: Vital Signs Period Temp Pulse Resp BP Sys/Santiago Pulse Ox Last 24 Hr 98.0 F-99.8 F 77-97 20-22 141-168/70-89 98 Physical Exam: General: No acute distress Neuro: Eye tracking to verbal stimulus Pulm: Tach collar, rhonchi throughout CV: RRR, S1S2 Abd: Soft, non-distended. Normoactive bowel sounds. Peg tube c/d/i Ext: Warm, well-perfused. 2+ DP/PT bilaterally CBCD WBC 6.6 K/mm3 (4.0-10.0) 05/12/16 06:00 RBC 3.92 M/mm3 (4.00-5.60) L 05/12/16 06:00 Hgb 10.7 GM/dL (11.7-16.9) L 05/12/16 06:00 Hct 33.5 % (35.4-49) L 05/12/16 06:00 MCV 85.4 fl (80-96) 05/12/16 06:00 MCHC 32.0 g/dl (32.0-35.9) 05/12/16 06:00 RDW 16.4 % (11.9-15.9) H 05/12/16 06:00 Plt Count 169 K/MM3 (134-434) 05/12/16 06:00 MPV 9.3 fl (7.5-11.1) 05/12/16 06:00 CMP Sodium 139 mmol/L (136-145) 05/12/16 06:00 Potassium 3.8 mmol/L (3.5-5.1) 05/12/16 06:00 Chloride 100 mmol/L (98-107) 05/12/16 06:00 Carbon Dioxide 30 mmol/L (21-32) 05/12/16 06:00 Anion Gap 9 (8-16) 05/12/16 06:00 BUN 18 mg/dL (7-18) 05/12/16 06:00 Creatinine 0.8 mg/dL (0.7-1.3) 05/12/16 06:00 Creat Clearance w eGFR > 60 (>60) 05/11/16 09:15 Random Glucose 131 mg/dL (74-106) H 05/12/16 06:00 Calcium 9.7 mg/dL (8.5-10.1) 05/12/16 06:00 Total Bilirubin 0.4 mg/dL (0.2-1.0) D 05/11/16 09:15 AST 18 U/L (15-37) 05/11/16 09:15 ALT 32 U/L (12-78) 05/11/16 09:15 Alkaline Phosphatase 139 U/L (45-117) H 05/11/16 09:15 Total Protein 7.7 g/dl (6.4-8.2) 05/11/16 09:15 Albumin 3.2 g/dl (3.4-5.0) L 05/11/16 09:15 CARDIAC ENZYMES Creatine Kinase 62 IU/L (38-174) 06/28/15 09:35 Troponin I 0.07 ng/ml (0.03-0.5) D 07/09/15 05:00 Microbiology 05/05/16 11:00 Blood - Peripheral Venous Blood Culture - Final NO GROWTH AFTER 5 DAYS INCUBATION 05/05/16 11:00 Blood - Peripheral Venous Blood Culture - Final NO GROWTH AFTER 5 DAYS INCUBATION 05/03/16 13:08 Blood - Peripheral Venous Blood Culture - Final NO GROWTH AFTER 5 DAYS INCUBATION 05/03/16 13:08 Blood - Peripheral Venous Blood Culture - Final NO GROWTH AFTER 5 DAYS INCUBATION 05/05/16 19:00 Sputum - Endotracheal Suction W/O Vent Gram Stain - Final 05/05/16 19:00 Sputum - Endotracheal Suction W/O Vent Sputum Culture - Final Pseudomonas Aeruginosa 05/03/16 19:00 Stool Clostridium difficile Antigen (MACHO) - Final 05/03/16 19:00 Stool Clostridium difficile Toxin Assay - Final 05/03/16 15:00 Urine - Urine - Catheterized Urine Culture - Final NO GROWTH OBTAINED Assessment: 75 year old male with PMHx of HTN, IDDM, inguinal hernia who presented to the ED with diverticular bleed s/p Righ hemicolectomy with 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 Plan: 1. Fever s/p vomiting on 05/01 - Afebrile since 05/10 - Completed 7 days of Ceftazadime on 05/12 - Appreciate ID consult 2. Anoxic brain injury s/p brainstem CVAs - Mental status unchanged 3. Respiratory failure secondary to anoxic brain injury - Cont trach collar - Duonebs PRN 4. HTN - Continue lisinopril, metoprolol, amlodipine 5. Multiple pressure ulcers - Turn and position q2h 6. IDDM - Continue Levemir at 14u sq qhs - ISS BGM ACHS 7. F/E/N: - Tube feeds 8. Prophylaxis: - SCDs bilaterally - No chemical anticoagulation 2/2 spontaneous gluteal bleed and severe GI bleed - PT CODE STATUS: DNR
[2016-05-15] MEDS: INSULIN DETEMIR 100 UNITS/ML MDV SQ SCH (21:13)
[2016-05-16] MEDS: INSULIN SLIDING SCALE (NOVOLOG) 1 VIAL SQ SCH ×2 (06:53→18:09)
[2016-05-16] MEDS: LACTOBACILLUS ACIDOPHILUS 1 EACH TAB (FP) PO SCH (10:16)
[2016-05-16] MEDS: amLODIPine BESYLATE 10 MG TABLET (FP) GT SCH (10:16)
[2016-05-16] MEDS: METOPROLOL TARTRATE 50 MG TABLET (FP) GT SCH ×2 (10:16→23:32)
[2016-05-16] MEDS: MULTIVITAMINS THERAPEUTIC GT SCH (10:16)
[2016-05-16] MEDS: LISINOPRIL 20 MG TABLET (FP) GT SCH (10:16)
[2016-05-16] MEDS: PANTOPRAZOLE SOD 40 MG SUSPENSION PACKET GT SCH (10:16)
[2016-05-16] MEDS: guaiFENesin/D-METHORPHAN HB 10 ML UNIT-DOSE CUPS PO PRN (10:16)
--- NOTE | 2016-05-16 13:35 | PN ---
Physical Exam: SUBJECTIVE: Patient seen and examined at bedside. Non-verbal at baseline. OBJECTIVE: Vital Signs Period Temp Pulse Resp BP Sys/Santiago Pulse Ox Last 24 Hr 98.4 F-99.3 F 73-80 19-20 145-147/75-91 99 GENERAL/NEURO: Eyes open. Non-verbal. Does not follow commands. Non-purposeful movement. HEAD: Normal with no signs of trauma. EYES: PERRL, extraocular movements intact, sclera anicteric, conjunctiva clear. No ptosis. ENT: Ears normal, nares patent, oropharynx clear without exudates, moist mucous membranes. LUNGS: Coarse breath sounds. HEART: Regular rate and rhythm, S1, S2 without murmur, rub or gallop. ABDOMEN: Soft, nontender, nondistended, normoactive bowel sounds, no guarding, no rebound, no hepatosplenomegaly, no masses. EXTREMITIES: 2+ pulses, warm, well-perfused, no edema. SKIN: Healing Stage III pressure ulcer upper left buttock, 1.2cmL x 1cmW x .2cmD ; scant blood observed in wound bed; Stage III ulcer right buttock healed CBCD WBC 6.6 K/mm3 (4.0-10.0) 05/12/16 06:00 RBC 3.92 M/mm3 (4.00-5.60) L 05/12/16 06:00 Hgb 10.7 GM/dL (11.7-16.9) L 05/12/16 06:00 Hct 33.5 % (35.4-49) L 05/12/16 06:00 MCV 85.4 fl (80-96) 05/12/16 06:00 MCHC 32.0 g/dl (32.0-35.9) 05/12/16 06:00 RDW 16.4 % (11.9-15.9) H 05/12/16 06:00 Plt Count 169 K/MM3 (134-434) 05/12/16 06:00 MPV 9.3 fl (7.5-11.1) 05/12/16 06:00 CMP Sodium 139 mmol/L (136-145) 05/12/16 06:00 Potassium 3.8 mmol/L (3.5-5.1) 05/12/16 06:00 Chloride 100 mmol/L (98-107) 05/12/16 06:00 Carbon Dioxide 30 mmol/L (21-32) 05/12/16 06:00 Anion Gap 9 (8-16) 05/12/16 06:00 BUN 18 mg/dL (7-18) 05/12/16 06:00 Creatinine 0.8 mg/dL (0.7-1.3) 05/12/16 06:00 Creat Clearance w eGFR > 60 (>60) 05/11/16 09:15 Calcium 9.7 mg/dL (8.5-10.1) 05/12/16 06:00 Total Bilirubin 0.4 mg/dL (0.2-1.0) D 05/11/16 09:15 AST 18 U/L (15-37) 05/11/16 09:15 ALT 32 U/L (12-78) 05/11/16 09:15 Alkaline Phosphatase 139 U/L (45-117) H 05/11/16 09:15 Total Protein 7.7 g/dl (6.4-8.2) 05/11/16 09:15 Albumin 3.2 g/dl (3.4-5.0) L 05/11/16 09:15 Active Medications Generic Name Dose Route Start Last Admin Trade Name Freq PRN Reason Stop Dose Admin Acetaminophen 650 mg 12/29/15 10:43 05/05/16 06:30 Tylenol Oral Solution - GT 650 mg Q6H PRN Administration FEVER Albuterol/Ipratropium 1 amp 05/02/16 11:51 05/07/16 10:41 Duoneb - NEB 1 amp Q6H PRN Administration SHORTNESS OF BREATH Amlodipine Besylate 10 mg 12/30/15 10:00 05/16/16 10:16 Norvasc - GT 10 mg DAILY KWAKU Administration Guaifenesin 10 ml 12/29/15 10:43 05/16/16 10:16 Robitussin Dm - PO 10 ml Q6H PRN Administration COUGH Insulin Aspart 1 vial 01/28/16 16:30 05/16/16 06:53 Novolog Vial Sliding Scale - SQ Not Given BIDI [facility] Protocol Insulin Detemir 14 units 05/05/16 22:00 05/15/16 21:13 Levemir Vial SQ 14 units HS KWAKU Administration Lactobacillus Acidophilus 1 tab 12/30/15 10:00 05/16/16 10:16 Bacid - PO 1 tab DAILY KWAKU Administration Lisinopril 40 mg 12/30/15 10:00 05/16/16 10:16 Prinivil - GT 40 mg DAILY KWAKU Administration Metoprolol Tartrate 150 mg 12/29/15 22:00 05/16/16 10:16 Lopressor - GT 150 mg BID KWAKU Administration Metoprolol Tartrate 5 mg 12/29/15 10:43 Lopressor Injection - IVPB Q6H PRN HYPERTENSION Multivitamins 5 ml 12/30/15 10:00 05/16/16 10:16 Thera-Plus - GT 5 ml DAILY KWAKU Administration Pantoprazole Sodium 40 mg 12/30/15 10:00 05/16/16 10:16 Protonix Packets For Oral Suspension - GT 40 mg DAILY KWAKU Administration Scopolamine HBr 1 patch 05/01/16 17:30 05/13/16 18:19 Transderm-Scop - TD 1 patch Q72H KWAKU Administration ASSESSMENT/PLAN: 75 year old male with PMHx of HTN, IDDM, inguinal hernia who presented to the ED with diverticular bleed s/p right hemicolectomy. 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 Plan: 1. Fever s/p vomiting on 05/01 - Afebrile since 05/10 - Completed 7 days of Ceftazadime on 05/12 - trach sputum positive for pseudomonas, considered colonization - followed by ID 2. Anoxic brain injury s/p brainstem CVAs - Mental status unchanged 3. Respiratory failure secondary to anoxic brain injury - Cont trach collar - Duonebs PRN 4. HTN - Continue lisinopril, metoprolol, amlodipine 5. Multiple pressure ulcers - single remaining Stage III healing pressure ulcer on left buttock - wet to dry dressing 6. IDDM - Continue Levemir at 14u sq qhs - ISS BGM ACHS 7. F/E/N: - Tube feeds 8. Prophylaxis: - SCDs bilaterally - No chemical anticoagulation 2/2 spontaneous gluteal bleed and severe GI bleed - PT CODE STATUS: DNR Visit Type - Emergency Visit Emergency Visit: Yes ED Registration Date: 06/27/15 Care time: The patient presented to the Emergency Department on the above date and was hospitalized for further evaluation of their emergent condition. - New Patient This patient is new to me today: No - Critical Care Critical Care patient: No
[2016-05-16] MEDS: SCOPOLAMINE HYDROBROMIDE 1 PATCH PATCH.TD72 TD SCH (23:30)
[2016-05-16] MEDS: INSULIN DETEMIR 100 UNITS/ML MDV SQ SCH (23:33)
[2016-05-17] MEDS: INSULIN SLIDING SCALE (NOVOLOG) 1 VIAL SQ SCH ×2 (06:32→17:59)
[2016-05-17] MEDS: PANTOPRAZOLE SOD 40 MG SUSPENSION PACKET GT SCH (10:42)
[2016-05-17] MEDS: MULTIVITAMINS THERAPEUTIC GT SCH (10:43)
[2016-05-17] MEDS: METOPROLOL TARTRATE 50 MG TABLET (FP) GT SCH ×2 (10:43→21:03)
[2016-05-17] MEDS: LISINOPRIL 20 MG TABLET (FP) GT SCH (10:44)
[2016-05-17] MEDS: LACTOBACILLUS ACIDOPHILUS 1 EACH TAB (FP) PO SCH (10:44)
[2016-05-17] MEDS: amLODIPine BESYLATE 10 MG TABLET (FP) GT SCH (10:44)
--- NOTE | 2016-05-17 17:06 | PN ---
Physical Exam: *LIVE* Progress Note-Symphony Patient Name: CRUZ LEE Date of : 1940 Patient Status: Inpatient Attending Provider: Marcella Mcdonald Date: 05/17/16 17:04 Initialization Date: 05/16/16 13:30 Physical Exam: SUBJECTIVE: Patient seen and examined at bedside. Non-verbal at baseline. OBJECTIVE: Vital Signs Period Temp Pulse Resp BP Sys/Santiago Pulse Ox Last 24 Hr 98.6 F-99.3 F 62-96 18-24 118-149/69-93 96-99 GENERAL/NEURO: Eyes open. Non-verbal. Does not follow commands. Non-purposeful movement. HEAD: Normal with no signs of trauma. EYES: PERRL, extraocular movements intact, sclera anicteric, conjunctiva clear. No ptosis. ENT: Ears normal, nares patent, oropharynx clear without exudates, moist mucous membranes. LUNGS: Coarse breath sounds. HEART: Regular rate and rhythm, S1, S2 without murmur, rub or gallop. ABDOMEN: Soft, nontender, nondistended, normoactive bowel sounds, no guarding, no rebound, no hepatosplenomegaly, no masses. EXTREMITIES: 2+ pulses, warm, well-perfused, no edema. SKIN: Healing Stage III pressure ulcer upper left buttock, 1.2cmL x 1cmW x .2cmD ; scant blood observed in wound bed; Stage III ulcer right buttock healed CBCD WBC 6.6 K/mm3 (4.0-10.0) 05/12/16 06:00 RBC 3.92 M/mm3 (4.00-5.60) L 05/12/16 06:00 Hgb 10.7 GM/dL (11.7-16.9) L 05/12/16 06:00 Hct 33.5 % (35.4-49) L 05/12/16 06:00 MCV 85.4 fl (80-96) 05/12/16 06:00 MCHC 32.0 g/dl (32.0-35.9) 05/12/16 06:00 RDW 16.4 % (11.9-15.9) H 05/12/16 06:00 Plt Count 169 K/MM3 (134-434) 05/12/16 06:00 MPV 9.3 fl (7.5-11.1) 05/12/16 06:00 CMP Sodium 139 mmol/L (136-145) 05/12/16 06:00 Potassium 3.8 mmol/L (3.5-5.1) 05/12/16 06:00 Chloride 100 mmol/L (98-107) 05/12/16 06:00 Carbon Dioxide 30 mmol/L (21-32) 05/12/16 06:00 Anion Gap 9 (8-16) 05/12/16 06:00 BUN 18 mg/dL (7-18) 05/12/16 06:00 Creatinine 0.8 mg/dL (0.7-1.3) 05/12/16 06:00 Creat Clearance w eGFR > 60 (>60) 05/11/16 09:15 Calcium 9.7 mg/dL (8.5-10.1) 05/12/16 06:00 Total Bilirubin 0.4 mg/dL (0.2-1.0) D 05/11/16 09:15 AST 18 U/L (15-37) 05/11/16 09:15 ALT 32 U/L (12-78) 05/11/16 09:15 Alkaline Phosphatase 139 U/L (45-117) H 05/11/16 09:15 Total Protein 7.7 g/dl (6.4-8.2) 05/11/16 09:15 Albumin 3.2 g/dl (3.4-5.0) L 05/11/16 09:15 Active Medications Generic Name Dose Route Start Last Admin Trade Name Freq PRN Reason Stop Dose Admin Acetaminophen 650 mg 12/29/15 10:43 05/05/16 06:30 Tylenol Oral Solution - GT 650 mg Q6H PRN Administration FEVER Albuterol/Ipratropium 1 amp 05/02/16 11:51 05/07/16 10:41 Duoneb - NEB 1 amp Q6H PRN Administration SHORTNESS OF BREATH Amlodipine Besylate 10 mg 12/30/15 10:00 05/16/16 10:16 Norvasc - GT 10 mg DAILY KWAKU Administration Guaifenesin 10 ml 12/29/15 10:43 05/16/16 10:16 Robitussin Dm - PO 10 ml Q6H PRN Administration COUGH Insulin Aspart 1 vial 01/28/16 16:30 05/16/16 06:53 Novolog Vial Sliding Scale - SQ Not Given BIDI [facility] Protocol Insulin Detemir 14 units 05/05/16 22:00 05/15/16 21:13 Levemir Vial SQ 14 units HS KWAKU Administration Lactobacillus Acidophilus 1 tab 12/30/15 10:00 05/16/16 10:16 Bacid - PO 1 tab DAILY KWAKU Administration Lisinopril 40 mg 12/30/15 10:00 05/16/16 10:16 Prinivil - GT 40 mg DAILY KWAKU Administration Metoprolol Tartrate 150 mg 12/29/15 22:00 05/16/16 10:16 Lopressor - GT 150 mg BID KWAKU Administration Metoprolol Tartrate 5 mg 12/29/15 10:43 Lopressor Injection - IVPB Q6H PRN HYPERTENSION Multivitamins 5 ml 12/30/15 10:00 05/16/16 10:16 Thera-Plus - GT 5 ml DAILY KWAKU Administration Pantoprazole Sodium 40 mg 12/30/15 10:00 05/16/16 10:16 Protonix Packets For Oral Suspension - GT 40 mg DAILY KWAKU Administration Scopolamine HBr 1 patch 05/01/16 17:30 05/13/16 18:19 Transderm-Scop - TD 1 patch Q72H KWAKU Administration ASSESSMENT/PLAN: 75 year old male with PMHx of HTN, IDDM, inguinal hernia who presented to the ED with diverticular bleed s/p right hemicolectomy. 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 Fever s/p vomiting on 05/01 - Afebrile since 05/10 - Completed 7 days of Ceftazadime on 05/12 - trach sputum positive for pseudomonas, considered colonization - followed by ID Anoxic brain injury s/p brainstem CVAs - Mental status unchanged Respiratory failure secondary to anoxic brain injury - Cont trach collar - Duonebs PRN HTN - BP well-controlled - Continue lisinopril, metoprolol, amlodipine Multiple pressure ulcers - single remaining Stage III healing pressure ulcer on left buttock - wet to dry dressing IDDM - Continue Levemir at 14u sq qhs - ISS BGM ACHS F/E/N - Tube feeds w/ free water Prophylaxis - SCDs bilaterally - No chemical anticoagulation 2/2 spontaneous gluteal bleed and severe GI bleed - PT CODE STATUS: DNR Visit Type - Emergency Visit Emergency Visit: Yes ED Registration Date: 06/27/15 Care time: The patient presented to the Emergency Department on the above date and was hospitalized for further evaluation of their emergent condition. - New Patient This patient is new to me today: No - Critical Care Critical Care patient: No Visit Type - Emergency Visit Emergency Visit: Yes ED Registration Date: 06/27/15 Care time: The patient presented to the Emergency Department on the above date and was hospitalized for further evaluation of their emergent condition. - New Patient This patient is new to me today: No - Critical Care Critical Care patient: No
[2016-05-17] MEDS: INSULIN DETEMIR 100 UNITS/ML MDV SQ SCH (21:04)
[2016-05-18] MEDS: INSULIN SLIDING SCALE (NOVOLOG) 1 VIAL SQ SCH ×2 (06:41→17:31)
[2016-05-18] MEDS: LACTOBACILLUS ACIDOPHILUS 1 EACH TAB (FP) PO SCH (10:10)
[2016-05-18] MEDS: METOPROLOL TARTRATE 50 MG TABLET (FP) GT SCH ×2 (10:10→21:32)
[2016-05-18] MEDS: ACETAMINOPHEN 650 MG/20.3 ML ORAL SOLUTION (CUPS) GT PRN (10:11)
[2016-05-18] MEDS: MULTIVITAMINS THERAPEUTIC GT SCH (10:11)
[2016-05-18] MEDS: PANTOPRAZOLE SOD 40 MG SUSPENSION PACKET GT SCH (10:11)
[2016-05-18] MEDS: amLODIPine BESYLATE 10 MG TABLET (FP) GT SCH (10:11)
[2016-05-18] MEDS: LISINOPRIL 20 MG TABLET (FP) GT SCH (10:11)
--- NOTE | 2016-05-18 12:15 | PN ---
Physical Exam: SUBJECTIVE: Patient seen and examined OBJECTIVE: Vital Signs Period Temp Pulse Resp BP Sys/Santiago Pulse Ox Last 24 Hr 97.5 F-99.4 F 66-98 18-18 143-159/83-95 95-98 GENERAL/NEURO: Eyes open. Non-verbal. Does not follow commands. Non-purposeful movement. HEAD: Normal with no signs of trauma. EYES: PERRL, extraocular movements intact, sclera anicteric, conjunctiva clear. No ptosis. ENT: Ears normal, nares patent, oropharynx clear without exudates, moist mucous membranes. LUNGS: Coarse breath sounds. HEART: Regular rate and rhythm, S1, S2 without murmur, rub or gallop. ABDOMEN: Soft, nontender, nondistended, normoactive bowel sounds, no guarding, no rebound, no hepatosplenomegaly, no masses. EXTREMITIES: 2+ pulses, warm, well-perfused, no edema. SKIN: Healing Stage III pressure ulcer upper left buttock, not visualized today. CBCD WBC 6.6 K/mm3 (4.0-10.0) 05/12/16 06:00 RBC 3.92 M/mm3 (4.00-5.60) L 05/12/16 06:00 Hgb 10.7 GM/dL (11.7-16.9) L 05/12/16 06:00 Hct 33.5 % (35.4-49) L 05/12/16 06:00 MCV 85.4 fl (80-96) 05/12/16 06:00 MCHC 32.0 g/dl (32.0-35.9) 05/12/16 06:00 RDW 16.4 % (11.9-15.9) H 05/12/16 06:00 Plt Count 169 K/MM3 (134-434) 05/12/16 06:00 MPV 9.3 fl (7.5-11.1) 05/12/16 06:00 CMP Sodium 139 mmol/L (136-145) 05/12/16 06:00 Potassium 3.8 mmol/L (3.5-5.1) 05/12/16 06:00 Chloride 100 mmol/L (98-107) 05/12/16 06:00 Carbon Dioxide 30 mmol/L (21-32) 05/12/16 06:00 Anion Gap 9 (8-16) 05/12/16 06:00 BUN 18 mg/dL (7-18) 05/12/16 06:00 Creatinine 0.8 mg/dL (0.7-1.3) 05/12/16 06:00 Creat Clearance w eGFR > 60 (>60) 05/11/16 09:15 Calcium 9.7 mg/dL (8.5-10.1) 05/12/16 06:00 Total Bilirubin 0.4 mg/dL (0.2-1.0) D 05/11/16 09:15 AST 18 U/L (15-37) 05/11/16 09:15 ALT 32 U/L (12-78) 05/11/16 09:15 Alkaline Phosphatase 139 U/L (45-117) H 05/11/16 09:15 Total Protein 7.7 g/dl (6.4-8.2) 05/11/16 09:15 Albumin 3.2 g/dl (3.4-5.0) L 05/11/16 09:15 Active Medications Generic Name Dose Route Start Last Admin Trade Name Freq PRN Reason Stop Dose Admin Acetaminophen 650 mg 12/29/15 10:43 05/18/16 10:11 Tylenol Oral Solution - GT 650 mg Q6H PRN Administration FEVER Albuterol/Ipratropium 1 amp 05/02/16 11:51 05/07/16 10:41 Duoneb - NEB 1 amp Q6H PRN Administration SHORTNESS OF BREATH Amlodipine Besylate 10 mg 12/30/15 10:00 05/18/16 10:11 Norvasc - GT 10 mg DAILY KWAKU Administration Guaifenesin 10 ml 12/29/15 10:43 05/16/16 10:16 Robitussin Dm - PO 10 ml Q6H PRN Administration COUGH Insulin Aspart 1 vial 01/28/16 16:30 05/18/16 06:41 Novolog Vial Sliding Scale - SQ Not Given BIDI [facility] Protocol Insulin Detemir 14 units 05/05/16 22:00 05/17/16 21:04 Levemir Vial SQ 14 units HS KWAKU Administration Lactobacillus Acidophilus 1 tab 12/30/15 10:00 05/18/16 10:10 Bacid - PO 1 tab DAILY KWAKU Administration Lisinopril 40 mg 12/30/15 10:00 05/18/16 10:11 Prinivil - GT 40 mg DAILY KWAKU Administration Metoprolol Tartrate 150 mg 12/29/15 22:00 05/18/16 10:10 Lopressor - GT 150 mg BID KWAKU Administration Metoprolol Tartrate 5 mg 12/29/15 10:43 Lopressor Injection - IVPB Q6H PRN HYPERTENSION Multivitamins 5 ml 12/30/15 10:00 05/18/16 10:11 Thera-Plus - GT 5 ml DAILY KWAKU Administration Pantoprazole Sodium 40 mg 12/30/15 10:00 05/18/16 10:11 Protonix Packets For Oral Suspension - GT 40 mg DAILY KWAKU Administration Scopolamine HBr 1 patch 05/01/16 17:30 05/16/16 23:30 Transderm-Scop - TD 1 patch Q72H KWAKU Administration ASSESSMENT/PLAN: 75 year old male with PMHx of HTN, IDDM, inguinal hernia who presented to the ED with diverticular bleed s/p right hemicolectomy. 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 Fever s/p vomiting on 05/01, resolved Anoxic brain injury s/p brainstem CVAs - Mental status unchanged Respiratory failure secondary to anoxic brain injury - Cont trach collar - Duonebs PRN HTN - BP well-controlled - Continue lisinopril, metoprolol, amlodipine Multiple pressure ulcers - single remaining Stage III healing pressure ulcer on left buttock - wet to dry dressing IDDM - Continue Levemir at 14u sq qhs - ISS BGM ACHS F/E/N - Tube feeds w/ free water Prophylaxis - SCDs bilaterally - No chemical anticoagulation 2/2 spontaneous gluteal bleed and severe GI bleed - PT CODE STATUS: DNR Visit Type - Emergency Visit Emergency Visit: Yes ED Registration Date: 06/27/15 Care time: The patient presented to the Emergency Department on the above date and was hospitalized for further evaluation of their emergent condition. - New Patient This patient is new to me today: No - Critical Care Critical Care patient: No
[2016-05-18] MEDS: INSULIN DETEMIR 100 UNITS/ML MDV SQ SCH (21:31)
--- NOTE | 2016-05-19 03:31 | HOSP ---
Subjective - Review of Symptoms Events since last encounter: Pt. seen at bedside for vomiting Abdomen soft non-distended, BS X4 peg in place will hold feeds to reduce risk of aspiration and chk. abd xray Physical Examination Vital Signs: Vital Signs Temperature 98.6 F 05/18/16 14:00 Pulse Rate 90 05/18/16 22:00 Respiratory Rate 18 05/18/16 22:00 Blood Pressure 168/90 05/18/16 22:00 O2 Sat by Pulse Oximetry (%) 96 05/18/16 21:00 Labs: CBC, BMP 05/12/16 06:00 05/12/16 06:00
[2016-05-19] MEDS: INSULIN SLIDING SCALE (NOVOLOG) 1 VIAL SQ SCH ×2 (06:36→23:31)
[2016-05-19] MEDS: amLODIPine BESYLATE 10 MG TABLET (FP) GT SCH (10:49)
[2016-05-19] MEDS: LACTOBACILLUS ACIDOPHILUS 1 EACH TAB (FP) PO SCH (10:49)
[2016-05-19] MEDS: LISINOPRIL 20 MG TABLET (FP) GT SCH (10:49)
[2016-05-19] MEDS: METOPROLOL TARTRATE 50 MG TABLET (FP) GT SCH ×2 (10:49→23:32)
[2016-05-19] MEDS: PANTOPRAZOLE SOD 40 MG SUSPENSION PACKET GT SCH (10:49)
[2016-05-19] MEDS: MULTIVITAMINS THERAPEUTIC GT SCH (10:50)
[2016-05-19 11:23] LABS: BASOPHIL 0.6 % (0-2.0); EOSINOPHIL 2.5 % (0-4.5); MCH 27.2 pg (25.7-33.7); MCHC 32.2 g/dl (32.0-35.9); MEAN CELL VOLUME 84.6 fl (80-96); MEAN PLT VOLUME 8.4 fl (7.5-11.1); NEUTROPHILS 66.3 % (42.8-82.8); PLATELET COUNT 216 K/MM3 (134-434); RDW 16.6 % (11.9-15.9); WHITE BLOOD COUNT 7.4 K/mm3 (4.0-10.0)
[2016-05-19 11:55] LABS: ALBUMIN 3.5 g/dl (3.4-5.0); BILIRUBIN,DIRECT 0.1 mg/dL (0.0-0.2); CALCIUM 10.3 mg/dL (8.5-10.1); CREATININE 0.8 mg/dL (0.7-1.3); MAGNESIUM 2.4 mg/dL (1.8-2.4); PHOSPHOROUS 3.6 mg/dL (2.5-4.9)
[2016-05-19 11:56] LABS: BILIRUBIN,TOTAL 0.5 mg/dL (0.2-1.0); TOT PROT 8.3 g/dl (6.4-8.2)
--- NOTE | 2016-05-19 19:12 | PN ---
Physical Exam: SUBJECTIVE: Patient seen and examined. OBJECTIVE: Vital Signs Period Temp Pulse Resp BP Sys/Santiago Pulse Ox Last 24 Hr 98.9 F-99.0 F 62-93 18-22 148-168/77-90 96-98 GENERAL/NEURO: Eyes open. Non-verbal. Does not follow commands. Non-purposeful movement. HEAD: Normal with no signs of trauma. EYES: PERRL, extraocular movements intact, sclera anicteric, conjunctiva clear. No ptosis. ENT: Ears normal, nares patent, oropharynx clear without exudates, moist mucous membranes. LUNGS: Coarse breath sounds. HEART: Regular rate and rhythm, S1, S2 without murmur, rub or gallop. ABDOMEN: Soft, nontender, nondistended, normoactive bowel sounds, no guarding, no rebound, no hepatosplenomegaly, no masses. EXTREMITIES: 2+ pulses, warm, well-perfused, no edema. SKIN: Healing Stage III pressure ulcer upper left buttock, not visualized today. Laboratory Results - last 24 hr 05/19/16 05/19/16 05/19/16 06:05 11:00 11:00 WBC 7.4 RBC 3.97 L Hgb 10.8 L Hct 33.6 L MCV 84.6 MCHC 32.2 RDW 16.6 H Plt Count 216 D MPV 8.4 Neutrophils % 66.3 Lymphocytes % 25.2 Monocytes % 5.4 Eosinophils % 2.5 Basophils % 0.6 Sodium 142 Potassium 3.7 Chloride 105 Carbon Dioxide 29 Anion Gap 8 BUN 18 Creatinine 0.8 POC Glucometer 137 Random Glucose 102 D Calcium 10.3 H Phosphorus 3.6 Magnesium 2.4 Total Bilirubin 0.5 D Direct Bilirubin 0.1 AST 20 ALT 42 D Alkaline Phosphatase 112 Total Protein 8.3 H Albumin 3.5 Lipase 05/19/16 05/19/16 11:00 18:30 WBC RBC Hgb Hct MCV MCHC RDW Plt Count MPV Neutrophils % Lymphocytes % Monocytes % Eosinophils % Basophils % Sodium Potassium Chloride Carbon Dioxide Anion Gap BUN Creatinine POC Glucometer 102 Random Glucose Calcium Phosphorus Magnesium Total Bilirubin Direct Bilirubin AST ALT Alkaline Phosphatase Total Protein Albumin Lipase 172 Active Medications Generic Name Dose Route Start Last Admin Trade Name Freq PRN Reason Stop Dose Admin Acetaminophen 650 mg 12/29/15 10:43 05/18/16 10:11 Tylenol Oral Solution - GT 650 mg Q6H PRN Administration FEVER Albuterol/Ipratropium 1 amp 05/02/16 11:51 05/07/16 10:41 Duoneb - NEB 1 amp Q6H PRN Administration SHORTNESS OF BREATH Amlodipine Besylate 10 mg 12/30/15 10:00 05/19/16 10:49 Norvasc - GT 10 mg DAILY KWAKU Administration Guaifenesin 10 ml 12/29/15 10:43 05/16/16 10:16 Robitussin Dm - PO 10 ml Q6H PRN Administration COUGH Insulin Aspart 1 vial 01/28/16 16:30 05/19/16 06:36 Novolog Vial Sliding Scale - SQ Not Given BIDI [facility] Protocol Insulin Detemir 14 units 05/05/16 22:00 05/18/16 21:31 Levemir Vial SQ 14 units HS KWAKU Administration Lactobacillus Acidophilus 1 tab 12/30/15 10:00 05/19/16 10:49 Bacid - PO 1 tab DAILY KWAKU Administration Lisinopril 40 mg 12/30/15 10:00 05/19/16 10:49 Prinivil - GT 40 mg DAILY KWAKU Administration Metoprolol Tartrate 150 mg 12/29/15 22:00 05/19/16 10:49 Lopressor - GT 150 mg BID KWAKU Administration Metoprolol Tartrate 5 mg 12/29/15 10:43 Lopressor Injection - IVPB Q6H PRN HYPERTENSION Multivitamins 5 ml 12/30/15 10:00 05/19/16 10:50 Thera-Plus - GT 5 ml DAILY KWAKU Administration Pantoprazole Sodium 40 mg 12/30/15 10:00 05/19/16 10:49 Protonix Packets For Oral Suspension - GT 40 mg DAILY KWAKU Administration Scopolamine HBr 1 patch 05/01/16 17:30 05/16/16 23:30 Transderm-Scop - TD 1 patch Q72H KWAKU Administration ASSESSMENT/PLAN: 75 year old male with PMHx of HTN, IDDM, inguinal hernia who presented to the ED with diverticular bleed s/p right hemicolectomy. 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 Vomiting --vomited tube feeds overnight; this is a second vomiting episode, first one on 05/01 after which patient developed a fever and was treated for aspiration pneumnia --Abdominal xray shows some abdominal distension, no free air; PEG tube appears well-positioned; tube feeds on hold --CT chest, abdomen, pelvis ordered --daily labs to closely monitor cbc, lytes Anoxic brain injury s/p brainstem CVAs - Mental status unchanged Respiratory failure secondary to anoxic brain injury - Cont trach collar - Duonebs PRN HTN - BP well-controlled - Continue lisinopril, metoprolol, amlodipine Multiple pressure ulcers - single remaining Stage III healing pressure ulcer on left buttock - wet to dry dressing IDDM - Continue Levemir at 14u sq qhs - ISS BGM ACHS F/E/N - Tube feeds w/ free water Prophylaxis - SCDs bilaterally - No chemical anticoagulation 2/2 spontaneous gluteal bleed and severe GI bleed - PT CODE STATUS: DNR Visit Type - Emergency Visit Emergency Visit: Yes ED Registration Date: 06/27/15 Care time: The patient presented to the Emergency Department on the above date and was hospitalized for further evaluation of their emergent condition. - New Patient This patient is new to me today: No - Critical Care Critical Care patient: No
[2016-05-19] MEDS: ALBUTEROL SO4 2.5/IPRATROPIUM 0.5 INH SOL 3 ML VIAL.NEB. NEB PRN (22:55)
[2016-05-19] MEDS: INSULIN DETEMIR 100 UNITS/ML MDV SQ SCH (23:32)
[2016-05-20] MEDS: ALBUTEROL SO4 2.5/IPRATROPIUM 0.5 INH SOL 3 ML VIAL.NEB. NEB PRN (06:30)
[2016-05-20] MEDS: INSULIN SLIDING SCALE (NOVOLOG) 1 VIAL SQ SCH ×2 (07:25→16:20)
[2016-05-20 08:14] LABS: BASOPHIL 0.7 % (0-2.0); EOSINOPHIL 3.5 % (0-4.5); MCH 27.8 pg (25.7-33.7); MCHC 32.4 g/dl (32.0-35.9); MEAN CELL VOLUME 85.6 fl (80-96); MEAN PLT VOLUME 9.3 fl (7.5-11.1); NEUTROPHILS 56.5 % (42.8-82.8); PLATELET COUNT 228 K/MM3 (134-434); WHITE BLOOD COUNT 8.6 K/mm3 (4.0-10.0)
[2016-05-20 08:33] LABS: ALBUMIN 3.9 g/dl (3.4-5.0); ALK PHOS 109 U/L (45-117); ANION GAP 10 (8-16); BILIRUBIN,TOTAL 0.6 mg/dL (0.2-1.0); CALCIUM 10.5 mg/dL (8.5-10.1); CO2 27 mmol/L (21-32); CREATININE 0.9 mg/dL (0.7-1.3); GLUCOSE,RANDOM 109 mg/dL (74-106); MAGNESIUM 2.3 mg/dL (1.8-2.4); SGOT/AST 20 U/L (15-37); SGPT/ALT 43 U/L (12-78); TOT PROT 8.6 g/dl (6.4-8.2)
[2016-05-20] MEDS: METOPROLOL TARTRATE 50 MG TABLET (FP) GT SCH ×3 (10:21→22:48)
[2016-05-20] MEDS: amLODIPine BESYLATE 10 MG TABLET (FP) GT SCH (10:33)
[2016-05-20] MEDS: PANTOPRAZOLE SOD 40 MG SUSPENSION PACKET GT SCH (10:33)
[2016-05-20] MEDS: LISINOPRIL 20 MG TABLET (FP) GT SCH (10:33)
[2016-05-20] MEDS: LACTOBACILLUS ACIDOPHILUS 1 EACH TAB (FP) PO SCH (10:33)
[2016-05-20] MEDS: MULTIVITAMINS THERAPEUTIC GT SCH (10:34)
[2016-05-20] MEDS: SCOPOLAMINE HYDROBROMIDE 1 PATCH PATCH.TD72 TD SCH (16:20)
--- NOTE | 2016-05-20 21:17 | PN ---
Physical Exam: SUBJECTIVE: Patient seen and examined at bedside. OBJECTIVE: Vital Signs Period Temp Pulse Resp BP Sys/Santiago Pulse Ox Last 24 Hr 97.9 F-99.6 F 69-97 20-22 136-149/80-91 94-98 GENERAL/NEURO: Eyes open. Non-verbal. Does not follow commands. Non-purposeful movement. HEAD: Normal with no signs of trauma. Trach. EYES: PERRL, extraocular movements intact, sclera anicteric, conjunctiva clear. No ptosis. ENT: Ears normal, nares patent, oropharynx clear without exudates, moist mucous membranes. LUNGS: CTA; on trach collar; no wheezing, no rhonchi, no accessory muscle use. HEART: Regular rate and rhythm, S1, S2 without murmur, rub or gallop. ABDOMEN: Soft, nontender, nondistended, normoactive bowel sounds, no guarding, no rebound, no hepatosplenomegaly, no masses. PEG tube. EXTREMITIES: 2+ pulses, warm, well-perfused, no edema. SKIN: Healing Stage III pressure ulcer upper left buttock, not visualized today. Laboratory Results - last 24 hr 05/19/16 05/20/16 05/20/16 23:30 07:25 07:30 WBC 8.6 RBC 4.07 Hgb 11.3 L Hct 34.8 L MCV 85.6 MCHC 32.4 RDW 16.0 H Plt Count 228 MPV 9.3 D Neutrophils % 56.5 Lymphocytes % 33.9 D Monocytes % 5.4 Eosinophils % 3.5 Basophils % 0.7 Sodium Potassium Chloride Carbon Dioxide Anion Gap BUN Creatinine Creat Clearance w eGFR POC Glucometer 129 127 Random Glucose Calcium Magnesium Total Bilirubin AST ALT Alkaline Phosphatase Total Protein Albumin 05/20/16 05/20/16 07:30 16:19 WBC RBC Hgb Hct MCV MCHC RDW Plt Count MPV Neutrophils % Lymphocytes % Monocytes % Eosinophils % Basophils % Sodium 141 Potassium 3.5 Chloride 104 Carbon Dioxide 27 Anion Gap 10 BUN 16 Creatinine 0.9 Creat Clearance w eGFR > 60 POC Glucometer 113 Random Glucose 109 H Calcium 10.5 H Magnesium 2.3 Total Bilirubin 0.6 AST 20 ALT 43 Alkaline Phosphatase 109 Total Protein 8.6 H Albumin 3.9 Active Medications Generic Name Dose Route Start Last Admin Trade Name Freq PRN Reason Stop Dose Admin Acetaminophen 650 mg 12/29/15 10:43 05/18/16 10:11 Tylenol Oral Solution - GT 650 mg Q6H PRN Administration FEVER Albuterol/Ipratropium 1 amp 05/02/16 11:51 05/20/16 06:30 Duoneb - NEB 1 amp Q6H PRN Administration SHORTNESS OF BREATH Amlodipine Besylate 10 mg 12/30/15 10:00 05/20/16 10:33 Norvasc - GT 10 mg DAILY KWAKU Administration Guaifenesin 10 ml 12/29/15 10:43 05/16/16 10:16 Robitussin Dm - PO 10 ml Q6H PRN Administration COUGH Insulin Aspart 1 vial 01/28/16 16:30 05/20/16 16:20 Novolog Vial Sliding Scale - SQ Not Given BIDI [facility] Protocol Insulin Detemir 14 units 05/05/16 22:00 05/19/16 23:32 Levemir Vial SQ Not Given HS KWAKU Lactobacillus Acidophilus 1 tab 12/30/15 10:00 05/20/16 10:33 Bacid - PO 1 tab DAILY KWAKU Administration Lisinopril 40 mg 12/30/15 10:00 05/20/16 10:33 Prinivil - GT 40 mg DAILY KWAKU Administration Metoprolol Tartrate 150 mg 12/29/15 22:00 05/20/16 12:20 Lopressor - GT 150 mg BID KWAKU Administration Metoprolol Tartrate 5 mg 12/29/15 10:43 Lopressor Injection - IVPB Q6H PRN HYPERTENSION Multivitamins 5 ml 12/30/15 10:00 05/20/16 10:34 Thera-Plus - GT 5 ml DAILY KWAKU Administration Pantoprazole Sodium 40 mg 12/30/15 10:00 05/20/16 10:33 Protonix Packets For Oral Suspension - GT 40 mg DAILY KWAKU Administration Scopolamine HBr 1 patch 05/20/16 15:45 05/20/16 16:20 Transderm-Scop - TD 1 patch Q72H KWAKU Administration ASSESSMENT/PLAN: 75 year old male with PMHx of HTN, IDDM, inguinal hernia who presented to the ED with diverticular bleed s/p right hemicolectomy. 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 Now with hydronephrosis Vomiting --vomited tube feeds overnight; this is a second vomiting episode, first one on 05/01 after which patient developed a fever and was treated for aspiration pneumnia --CT chest: bilateral lower lobe atelectasis; no acute process --remains afebrile, no leukocytosis --will continue to monitor closely for signs of aspiration pneumonia Hydronephrosis --CTAP: moderate to marked left-sided hydronephrosis likely due to UVJ obstruction --Cr is stable --request for urology re-consult Right inguinal hernia --CTAP: right inguinal hernia sac with fluid, extending to the ipsilateral hemiscrotum; no free fluid in pelvis/abdomen --will obtain surgery consult Anoxic brain injury s/p brainstem CVAs - Mental status unchanged Respiratory failure secondary to anoxic brain injury - Cont trach collar - Duonebs PRN HTN - BP well-controlled - Continue lisinopril, metoprolol, amlodipine Multiple pressure ulcers - single remaining Stage III healing pressure ulcer on left buttock - wet to dry dressing IDDM - Continue Levemir at 14u sq qhs - ISS BGM ACHS F/E/N - Tube feeds restarted, goal rate reduced to decrease chance of vomiting Prophylaxis - SCDs bilaterally - No chemical anticoagulation 2/2 spontaneous gluteal bleed and severe GI bleed - PT CODE STATUS: DNR Visit Type - Emergency Visit Emergency Visit: Yes ED Registration Date: 06/27/15 Care time: The patient presented to the Emergency Department on the above date and was hospitalized for further evaluation of their emergent condition. - New Patient This patient is new to me today: No - Critical Care Critical Care patient: No
[2016-05-20] MEDS: INSULIN DETEMIR 100 UNITS/ML MDV SQ SCH (22:49)
[2016-05-21] MEDS: ALBUTEROL SO4 2.5/IPRATROPIUM 0.5 INH SOL 3 ML VIAL.NEB. NEB PRN ×2 (02:25→10:00)
[2016-05-21] MEDS: INSULIN SLIDING SCALE (NOVOLOG) 1 VIAL SQ SCH ×2 (06:23→16:30)
[2016-05-21 08:46] LABS: BASOPHIL 0.7 % (0-2.0); EOSINOPHIL 4.9 % (0-4.5); MCH 27.7 pg (25.7-33.7); MCHC 32.6 g/dl (32.0-35.9); MEAN PLT VOLUME 8.6 fl (7.5-11.1); NEUTROPHILS 60.1 % (42.8-82.8); PLATELET COUNT 225 K/MM3 (134-434); RDW 16.1 % (11.9-15.9); WHITE BLOOD COUNT 7.7 K/mm3 (4.0-10.0)
[2016-05-21 09:06] LABS: ALBUMIN 3.5 g/dl (3.4-5.0); ANION GAP 8 (8-16); BILIRUBIN,TOTAL 0.4 mg/dL (0.2-1.0); CALCIUM 9.9 mg/dL (8.5-10.1); CO2 30 mmol/L (21-32); GLUCOSE,RANDOM 137 mg/dL (74-106); MAGNESIUM 2.3 mg/dL (1.8-2.4); PHOSPHOROUS 3.4 mg/dL (2.5-4.9); SGOT/AST 18 U/L (15-37); SGPT/ALT 34 U/L (12-78); TOT PROT 8.3 g/dl (6.4-8.2)
[2016-05-21 09:07] LABS: ALK PHOS 112 U/L (45-117)
[2016-05-21] MEDS: LACTOBACILLUS ACIDOPHILUS 1 EACH TAB (FP) PO SCH (09:27)
[2016-05-21] MEDS: PANTOPRAZOLE SOD 40 MG SUSPENSION PACKET GT SCH (09:28)
[2016-05-21] MEDS: LISINOPRIL 20 MG TABLET (FP) GT SCH (09:28)
[2016-05-21] MEDS: METOPROLOL TARTRATE 50 MG TABLET (FP) GT SCH ×2 (09:28→22:01)
[2016-05-21] MEDS: amLODIPine BESYLATE 10 MG TABLET (FP) GT SCH (09:28)
[2016-05-21] MEDS: MULTIVITAMINS THERAPEUTIC GT SCH (09:29)
--- NOTE | 2016-05-21 11:09 | PN ---
Progress Note (short form) - Note Progress Note: urology consultation I was contacted by dr. ramsey (covering for dr. elliott) who requested that I assume care of this pt., and I have agreed reason for consultation: UVJ obstruction; hydronephrosis referrer: jumana cárdenas source: chart Pt. was seen and examined at about 10:30pm on 05/20/16 Pt. is DNR 75 y/o AA male with anoxic brain injury who has been hospitalized for nearly one year, found to have L hydronephrosis on imaging. [place] was noted on CT from 10/2015, and now continues to be present on an updated CT. Pt. has a tracheostomy and altered mental status and is unable to communicate. No h/o UTI since admission per the chart; serum creatinine has been essentially nL. Pt. 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 and bleed; iliac a. bleed psxh: trach and PEG placements; R hemicolectomy for bleeding; IVC filter insertion; embolization of iliac a. bleed meds: Current Medications Acetaminophen (Tylenol Oral Solution -) 650 mg GT Q6H PRN PRN Reason: FEVER Last Admin: 05/18/16 10:11 Dose: 650 mg Albuterol/Ipratropium (Duoneb -) 1 amp NEB Q6H PRN PRN Reason: SHORTNESS OF BREATH Last Admin: 05/21/16 10:00 Dose: 1 amp Amlodipine Besylate (Norvasc -) 10 mg GT DAILY KWAKU Last Admin: 05/21/16 09:28 Dose: 10 mg Guaifenesin (Robitussin Dm -) 10 ml PO Q6H PRN PRN Reason: COUGH Last Admin: 05/16/16 10:16 Dose: 10 ml Insulin Aspart (Novolog Vial Sliding Scale -) 1 vial SQ BIDI KWAKU PRN Reason: Protocol Last Admin: 05/21/16 06:23 Dose: Not Given Insulin Detemir (Levemir Vial) 14 units SQ HS KWAKU Last Admin: 05/20/16 22:49 Dose: 14 units Lactobacillus Acidophilus (Bacid -) 1 tab PO DAILY KWAKU Last Admin: 05/21/16 09:27 Dose: 1 tab Lisinopril (Prinivil -) 40 mg GT DAILY KWAKU Last Admin: 05/21/16 09:28 Dose: 40 mg Metoprolol Tartrate (Lopressor -) 150 mg GT BID [facility] Last Admin: 05/21/16 09:28 Dose: 150 mg Metoprolol Tartrate (Lopressor Injection -) 5 mg IVPB Q6H PRN PRN Reason: HYPERTENSION Multivitamins (Thera-Plus -) 5 ml GT DAILY [facility] Last Admin: 05/21/16 09:29 Dose: 5 ml Pantoprazole Sodium (Protonix Packets For Oral Suspension -) 40 mg GT DAILY [facility] Last Admin: 05/21/16 09:28 Dose: 40 mg Scopolamine HBr (Transderm-Scop -) 1 patch TD Q72H [facility] Last Admin: 05/20/16 16:20 Dose: 1 patch nkda fh: F-stomach dz, unknown type sh: no cigs/etoh/illicit drug use ros: unable to obtain due to altered mental status and presence of trach Elderly male, awake, unable to verbalize, in NAD neck: +tracheostomy abd-lower abd soft, however, unable to fully examine due to presence of abdominal binder and contracted UEs over upper abd; no palpable inguinal hernias present, however, pt. unable to participate in Valsalva maneuver; unable to examine back because pt. not cooperative w/positioning uncircumcised, w/o d/c or lesions, external meatus patent; testes b/l descended , w/o tenderness elicited or masses; no hydrocele present ext-feet extended b/l neuro-A&O x 0 CBC,CMP WBC 7.7 K/mm3 (4.0-10.0) 05/21/16 07:45 Corrected WBC (auto) Cancelled 06/26/15 21:50 RBC 3.75 M/mm3 (4.00-5.60) L 05/21/16 07:45 Hgb 10.4 GM/dL (11.7-16.9) L 05/21/16 07:45 Hct 31.9 % (35.4-49) L 05/21/16 07:45 MCV 85.0 fl (80-96) 05/21/16 07:45 MCHC 32.6 g/dl (32.0-35.9) 05/21/16 07:45 RDW 16.1 % (11.9-15.9) H 05/21/16 07:45 Plt Count 225 K/MM3 (134-434) 05/21/16 07:45 MPV 8.6 fl (7.5-11.1) 05/21/16 07:45 Add Manual Diff Cancelled 06/26/15 21:50 Neutrophils % 60.1 % (42.8-82.8) 05/21/16 07:45 Lymphocytes % 27.5 % (8-40) 05/21/16 07:45 Monocytes % 6.8 % (3.8-10.2) 05/21/16 07:45 Eosinophils % 4.9 % (0-4.5) H 05/21/16 07:45 Basophils % 0.7 % (0-2.0) 05/21/16 07:45 Band Neutrophils 6.0 % (0-10) 06/28/15 09:35 Differential Comment Slide scanned 05/11/16 09:15 Reactive Lymphocytes 2 % (0-80) 04/30/16 17:00 Smudge Cells Cancelled 06/26/15 21:50 Platelet Estimate Adequate (NORMAL) 05/11/16 09:15 Platelet Comment Slt plt clumping 05/11/16 09:15 Platelet Comment Unable to enumerate 05/11/16 09:15 Normal RBC Morphology Cancelled 06/26/15 21:50 RBC Morphology Cancelled 06/26/15 21:50 ESR 100 mm/hr (0-20) H 02/03/16 06:25 Sodium 142 mmol/L (136-145) 05/21/16 07:45 Potassium 3.7 mmol/L (3.5-5.1) 05/21/16 07:45 Chloride 104 mmol/L (98-107) 05/21/16 07:45 Carbon Dioxide 30 mmol/L (21-32) 05/21/16 07:45 Anion Gap 8 (8-16) 05/21/16 07:45 BUN 21 mg/dL (7-18) H D 05/21/16 07:45 Creatinine 1.0 mg/dL (0.7-1.3) 05/21/16 07:45 Creat Clearance w eGFR > 60 (>60) 05/21/16 07:45 POC Glucometer 137 UNITS (()) 05/21/16 04:50 Random Glucose 137 mg/dL (74-106) H D 05/21/16 07:45 Lactic Acid 1.217 mmol/L (0.4-2.0) 12/25/15 12:45 Calcium 9.9 mg/dL (8.5-10.1) 05/21/16 07:45 Phosphorus 3.4 mg/dL (2.5-4.9) 05/21/16 07:45 Magnesium 2.3 mg/dL (1.8-2.4) 05/21/16 07:45 Total Bilirubin 0.4 mg/dL (0.2-1.0) D 05/21/16 07:45 Direct Bilirubin 0.1 mg/dL (0.0-0.2) 05/19/16 11:00 GGT 29 U/L (5-85) 04/18/16 05:45 AST 18 U/L (15-37) 05/21/16 07:45 ALT 34 U/L (12-78) D 05/21/16 07:45 Alkaline Phosphatase 112 U/L (45-117) 05/21/16 07:45 Creatine Kinase 62 IU/L (38-174) 06/28/15 09:35 Creatine Kinase Index 0.7 % (0.0-5.0) 06/26/15 21:50 CK-MB (CK-2) 1.077 ng/ml (0.3-4.0) 06/26/15 21:50 CK-MB (CK-2) Rel Index Cancelled 06/26/15 21:50 Troponin I 0.07 ng/ml (0.03-0.5) D 07/09/15 05:00 C-Reactive Protein 2.1 MG/DL (0.00-0.3) H 09/03/15 07:30 Total Protein 8.3 g/dl (6.4-8.2) H 05/21/16 07:45 Albumin 3.5 g/dl (3.4-5.0) 05/21/16 07:45 Triglycerides 143 mg/dL (35-160) D 09/02/15 06:30 Cholesterol 106 mg/dL (50-200) D 09/02/15 06:30 Total LDL Cholesterol 66 mg/dL 09/02/15 06:30 HDL Cholesterol 26 mg/dL (40-60) L D 09/02/15 06:30 Lipase 172 U/L (73-393) 05/19/16 11:00 Prolactin 19.8 ng/ml (4.0-15.2) H 07/02/15 05:20 INR, PTT INR 1.29 (0.80-1.00) H 12/26/15 08:45 Urine Test Results Urine Color Yellow 05/03/16 13:00 Urine Appearance Clear 05/03/16 13:00 Urine pH 7.0 (5.0-8.0) 05/03/16 13:00 Ur Specific [place] 1.017 (1.001-1.035) 05/03/16 13:00 Urine Protein Negative (NEGATIVE) 05/03/16 13:00 Urine Glucose (UA) Negative (NEGATIVE) 05/03/16 13:00 Urine Ketones Negative (NEGATIVE) 05/03/16 13:00 Urine Blood Negative (NEGATIVE) 05/03/16 13:00 Urine Nitrite Negative (NEGATIVE) 05/03/16 13:00 Urine Bilirubin Negative (NEGATIVE) 05/03/16 13:00 Ur Leukocyte Esterase Negative (NEGATIVE) 05/03/16 13:00 Urine RBC 2 /hpf (0-3) 02/23/16 19:45 Urine WBC 47 /hpf (3-5) 02/23/16 19:45 Ur Epithelial Cells Rare /hpf (FEW) 02/23/16 19:45 Urine Bacteria Many /hpf (NEGATIVE) 01/29/16 14:44 Urine Mucus Rare 02/23/16 19:45 blood and ucx-neg. since 01/2016 CT a/p w/iv and po contrast (pre-contrast not done)-10/2015: films and report reviewed: small, hypodense R renal lesion w/smooth rosenbaum c/w renal cyst; punctate, hypodense RLP renal lesion c/w cyst; small, hypodense L renal lesion w /smooth rosenbaum c/w renal cyst; mod-severe L hydronephrosis w/blunting of calyces w/abrupt termination of hydro at UPJ c/w UPJ obstruction; herniation of portion of R bladder wall into R inguinal canal CT a/p w/iv and po contrast-04/29/16-films and report reviewed: no change from CT of 10/2015, except herniated bladder replaced with fibrous thickening and peritoneal fluid; IVC filter in place; L ureter of nL caliber distal to point of L UPJ obstruction A/P: 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 Difficult to assess for presence of flank pain given pt's non-verbal state. Given pt's guarded prognosis and current DNR status, would recommend continued observation until absolute indications for definitive surgical intervention arise (including, but not limited to, elevated serum creatinine, recurrent UTI or urosepsis, flank pain and/or gross hematuria). Continue to periodically monitor bun/cr, ucx and signs/ symptoms. In the meantime, a renal scan w/Lasix (to be ordered by primary service if approved by family) would be helpful in determining the degree of obstruction and whether a nephrostomy is necessary. R inguinal hernia containing bladder wall-current CT shows that this has now been replaced with possible fibrous tissue or may continue to contain bladder (hard to tell on CT) . The bladder may be sliding into and out of hernia sac. Recommend surgical consultation for evaluation for R inguinal hernia repair. At this time, there is no hematuria or other signs to suggest that bladder is compromised in any way (i.e., incarcerated or strangulated), so would continue to observe until a repair of the inguinal hernia can be safely performed. Renal cyst-b/l, acquired renal cysts, which appear to be simple on CT, can continue to be monitored for change with US or CT periodically, but no intervention indicated at this time Total activity time: 120 mins.
--- NOTE | 2016-05-21 13:10 | PN ---
Physical Exam: SUBJECTIVE: Patient seen and examined at bedside. OBJECTIVE: Vital Signs Period Temp Pulse Resp BP Sys/Santiago Pulse Ox Last 24 Hr 98.6 F-99.6 F 68-87 20-20 142-148/82-91 94-100 GENERAL/NEURO: Eyes open. Non-verbal. Does not follow commands. Non-purposeful movement. HEAD: Normal with no signs of trauma. Trach. EYES: PERRL, extraocular movements intact, sclera anicteric, conjunctiva clear. No ptosis. ENT: Ears normal, nares patent, oropharynx clear without exudates, moist mucous membranes. LUNGS: CTA; on trach collar; no wheezing, no rhonchi, no accessory muscle use. HEART: Regular rate and rhythm, S1, S2 without murmur, rub or gallop. ABDOMEN: Soft, nontender, nondistended, normoactive bowel sounds, no guarding, no rebound, no hepatosplenomegaly, no masses. PEG tube. EXTREMITIES: 2+ pulses, warm, well-perfused, no edema. SKIN: Healing Stage III pressure ulcer upper left buttock, not visualized today. Laboratory Results - last 24 hr 05/20/16 05/20/16 05/21/16 16:19 22:47 04:50 WBC RBC Hgb Hct MCV MCHC RDW Plt Count MPV Neutrophils % Lymphocytes % Monocytes % Eosinophils % Basophils % Sodium Potassium Chloride Carbon Dioxide Anion Gap BUN Creatinine Creat Clearance w eGFR POC Glucometer 113 114 137 Random Glucose Calcium Phosphorus Magnesium Total Bilirubin AST ALT Alkaline Phosphatase Total Protein Albumin 05/21/16 05/21/16 07:45 07:45 WBC 7.7 RBC 3.75 L Hgb 10.4 L Hct 31.9 L MCV 85.0 MCHC 32.6 RDW 16.1 H Plt Count 225 MPV 8.6 Neutrophils % 60.1 Lymphocytes % 27.5 Monocytes % 6.8 Eosinophils % 4.9 H Basophils % 0.7 Sodium 142 Potassium 3.7 Chloride 104 Carbon Dioxide 30 Anion Gap 8 BUN 21 H D Creatinine 1.0 Creat Clearance w eGFR > 60 POC Glucometer Random Glucose 137 H D Calcium 9.9 Phosphorus 3.4 Magnesium 2.3 Total Bilirubin 0.4 D AST 18 ALT 34 D Alkaline Phosphatase 112 Total Protein 8.3 H Albumin 3.5 Active Medications Generic Name Dose Route Start Last Admin Trade Name Freq PRN Reason Stop Dose Admin Acetaminophen 650 mg 12/29/15 10:43 05/18/16 10:11 Tylenol Oral Solution - GT 650 mg Q6H PRN Administration FEVER Albuterol/Ipratropium 1 amp 05/02/16 11:51 05/21/16 10:00 Duoneb - NEB 1 amp Q6H PRN Administration SHORTNESS OF BREATH Amlodipine Besylate 10 mg 12/30/15 10:00 05/21/16 09:28 Norvasc - GT 10 mg DAILY KWAKU Administration Guaifenesin 10 ml 12/29/15 10:43 05/16/16 10:16 Robitussin Dm - PO 10 ml Q6H PRN Administration COUGH Insulin Aspart 1 vial 01/28/16 16:30 05/21/16 06:23 Novolog Vial Sliding Scale - SQ Not Given BIDI [facility] Protocol Insulin Detemir 14 units 05/05/16 22:00 05/20/16 22:49 Levemir Vial SQ 14 units HS KWAKU Administration Lactobacillus Acidophilus 1 tab 12/30/15 10:00 05/21/16 09:27 Bacid - PO 1 tab DAILY KWAKU Administration Lisinopril 40 mg 12/30/15 10:00 05/21/16 09:28 Prinivil - GT 40 mg DAILY KWAKU Administration Metoprolol Tartrate 150 mg 12/29/15 22:00 05/21/16 09:28 Lopressor - GT 150 mg BID KWAKU Administration Metoprolol Tartrate 5 mg 12/29/15 10:43 Lopressor Injection - IVPB Q6H PRN HYPERTENSION Multivitamins 5 ml 12/30/15 10:00 05/21/16 09:29 Thera-Plus - GT 5 ml DAILY [facility]WAKU Administration Pantoprazole Sodium 40 mg 12/30/15 10:00 05/21/16 09:28 Protonix Packets For Oral Suspension - GT 40 mg DAILY [facility]U Administration Scopolamine HBr 1 patch 05/20/16 15:45 05/20/16 16:20 Transderm-Scop - TD 1 patch Q72H [facility]WAKU Administration ASSESSMENT/PLAN: 75 year old male with PMHx of HTN, IDDM, inguinal hernia who presented to the ED with diverticular bleed s/p right hemicolectomy. 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 Now with hydronephrosis Vomiting, resolved --no further vomiting episodes --CT chest: bilateral lower lobe atelectasis; no acute process --remains afebrile, no leukocytosis --will continue to monitor closely for signs of aspiration pneumonia Hydronephrosis --CTAP: moderate to marked left-sided hydronephrosis likely due to UVJ obstruction --Cr is stable -- urology re-consult pending Right inguinal hernia --CTAP: right inguinal hernia sac with fluid, extending to the ipsilateral hemiscrotum; no free fluid in pelvis/abdomen --will obtain surgery consult Anoxic brain injury s/p brainstem CVAs - Mental status unchanged Respiratory failure secondary to anoxic brain injury - Cont trach collar - Duonebs PRN HTN - BP well-controlled - Continue lisinopril, metoprolol, amlodipine Multiple pressure ulcers - single remaining Stage III healing pressure ulcer on left buttock - wet to dry dressing IDDM - Continue Levemir at 14u sq qhs - ISS BGM ACHS F/E/N - Tube feeds restarted, goal rate reduced to decrease chance of vomiting Prophylaxis - SCDs bilaterally - No chemical anticoagulation 2/2 spontaneous gluteal bleed and severe GI bleed - PT CODE STATUS: DNR Visit Type - Emergency Visit Emergency Visit: Yes ED Registration Date: 06/27/15 Care time: The patient presented to the Emergency Department on the above date and was hospitalized for further evaluation of their emergent condition. - New Patient This patient is new to me today: No - Critical Care Critical Care patient: No
[2016-05-21] MEDS: INSULIN DETEMIR 100 UNITS/ML MDV SQ SCH (22:12)
[2016-05-22] MEDS: INSULIN SLIDING SCALE (NOVOLOG) 1 VIAL SQ SCH ×2 (06:01→17:37)
[2016-05-22 07:33] LABS: BASOPHIL 0.8 % (0-2.0); EOSINOPHIL 2.6 % (0-4.5); MCH 27.6 pg (25.7-33.7); MCHC 31.9 g/dl (32.0-35.9); MEAN CELL VOLUME 86.4 fl (80-96); RDW 16.4 % (11.9-15.9); WHITE BLOOD COUNT 7.9 K/mm3 (4.0-10.0)
[2016-05-22 08:10] LABS: ALBUMIN 3.6 g/dl (3.4-5.0); ALK PHOS 116 U/L (45-117); ANION GAP 9 (8-16); BILIRUBIN,TOTAL 0.3 mg/dL (0.2-1.0); CALCIUM 10.1 mg/dL (8.5-10.1); CO2 30 mmol/L (21-32); CREATININE 0.9 mg/dL (0.7-1.3); GLUCOSE,RANDOM 116 mg/dL (74-106); MAGNESIUM 2.3 mg/dL (1.8-2.4); SGOT/AST 24 U/L (15-37); SGPT/ALT 30 U/L (12-78); TOT PROT 8.3 g/dl (6.4-8.2)
[2016-05-22] MEDS: amLODIPine BESYLATE 10 MG TABLET (FP) GT SCH (11:14)
[2016-05-22] MEDS: METOPROLOL TARTRATE 50 MG TABLET (FP) GT SCH ×2 (11:14→22:50)
[2016-05-22] MEDS: PANTOPRAZOLE SOD 40 MG SUSPENSION PACKET GT SCH (11:14)
[2016-05-22] MEDS: LACTOBACILLUS ACIDOPHILUS 1 EACH TAB (FP) PO SCH (11:14)
[2016-05-22] MEDS: LISINOPRIL 20 MG TABLET (FP) GT SCH (11:14)
[2016-05-22] MEDS: MULTIVITAMINS THERAPEUTIC GT SCH (11:16)
[2016-05-22 11:33] LABS: PLATELET COMMENT2 NO CLOTTING DETECTED; PLATELET COUNT 189 K/MM3 (134-434); PLATELET ESTIMATE ADEQUATE (NORMAL)
--- NOTE | 2016-05-22 17:49 | PN ---
Physical Exam: Subjective: Patient seen and examined. He appears comfortable. 24: incidence report made due to feeding pump malfunction, pt received entire bag of TF in 4.5 hrs Objective: Vital Signs Period Temp Pulse Resp BP Sys/Santiago Pulse Ox Last 24 Hr 98.6 F-99.1 F 65-94 18-20 141-146/68-91 97-98 PE: Neuro: Eyes open. Non-verbal. Pulm: Trach collar, clear anteriorly CV: s1 s2 rrr no mrg Abd: peg tube cdi, s nt nd +bs Ext: no edema, warm CBCD WBC 7.9 K/mm3 (4.0-10.0) 05/22/16 06:00 RBC 4.23 M/mm3 (4.00-5.60) 05/22/16 06:00 Hgb 11.6 GM/dL (11.7-16.9) L D 05/22/16 06:00 Hct 36.5 % (35.4-49) 05/22/16 06:00 MCV 86.4 fl (80-96) 05/22/16 06:00 MCHC 31.9 g/dl (32.0-35.9) L 05/22/16 06:00 RDW 16.4 % (11.9-15.9) H 05/22/16 06:00 Plt Count 189 K/MM3 (134-434) 05/22/16 06:00 MPV 9.0 fl (7.5-11.1) 05/22/16 06:00 CMP Sodium 146 mmol/L (136-145) H 05/22/16 06:00 Potassium 3.9 mmol/L (3.5-5.1) 05/22/16 06:00 Chloride 107 mmol/L (98-107) 05/22/16 06:00 Carbon Dioxide 30 mmol/L (21-32) 05/22/16 06:00 Anion Gap 9 (8-16) 05/22/16 06:00 BUN 24 mg/dL (7-18) H 05/22/16 06:00 Creatinine 0.9 mg/dL (0.7-1.3) 05/22/16 06:00 Creat Clearance w eGFR > 60 (>60) 05/22/16 06:00 Calcium 10.1 mg/dL (8.5-10.1) 05/22/16 06:00 Total Bilirubin 0.3 mg/dL (0.2-1.0) D 05/22/16 06:00 AST 24 U/L (15-37) D 05/22/16 06:00 ALT 30 U/L (12-78) 05/22/16 06:00 Alkaline Phosphatase 116 U/L (45-117) 05/22/16 06:00 Total Protein 8.3 g/dl (6.4-8.2) H 05/22/16 06:00 Albumin 3.6 g/dl (3.4-5.0) 05/22/16 06:00 Active Medications Generic Name Dose Route Start Last Admin Trade Name Freq PRN Reason Stop Dose Admin Acetaminophen 650 mg 12/29/15 10:43 05/18/16 10:11 Tylenol Oral Solution - GT 650 mg Q6H PRN Administration FEVER Albuterol/Ipratropium 1 amp 05/02/16 11:51 05/21/16 10:00 Duoneb - NEB 1 amp Q6H PRN Administration SHORTNESS OF BREATH Amlodipine Besylate 10 mg 12/30/15 10:00 05/22/16 11:14 Norvasc - GT 10 mg DAILY KWAKU Administration Guaifenesin 10 ml 12/29/15 10:43 05/16/16 10:16 Robitussin Dm - PO 10 ml Q6H PRN Administration COUGH Insulin Aspart 1 vial 01/28/16 16:30 05/22/16 17:37 Novolog Vial Sliding Scale - SQ Not Given BIDI [facility] Protocol Insulin Detemir 14 units 05/05/16 22:00 05/21/16 22:12 Levemir Vial SQ Not Given HS [facility] Lactobacillus Acidophilus 1 tab 12/30/15 10:00 05/22/16 11:14 Bacid - PO 1 tab DAILY K[facility]KU Administration Lisinopril 40 mg 12/30/15 10:00 05/22/16 11:14 Prinivil - GT 40 mg DAILY K[facility]U Administration Metoprolol Tartrate 150 mg 12/29/15 22:00 05/22/16 11:14 Lopressor - GT 150 mg BID KWAKU Administration Metoprolol Tartrate 5 mg 12/29/15 10:43 Lopressor Injection - IVPB Q6H PRN HYPERTENSION Multivitamins 5 ml 12/30/15 10:00 05/22/16 11:16 Thera-Plus - GT 5 ml DAILY KWAKU Administration Pantoprazole Sodium 40 mg 12/30/15 10:00 05/22/16 11:14 Protonix Packets For Oral Suspension - GT 40 mg DAILY [facility]AKU Administration Scopolamine HBr 1 patch 05/20/16 15:45 05/20/16 16:20 Transderm-Scop - TD 1 patch Q72H KWAKU Administration Imaging: - CTAP: moderate to marked left-sided hydronephrosis likely due to UVJ obstruction - CTAP: right inguinal hernia sac with fluid, extending to the ipsilateral hemiscrotum; no free fluid in pelvis/abdomen Assessment: 75 year old male with PMHx of HTN, IDDM, inguinal hernia who presented to the ED with diverticular bleed s/p right hemicolectomy. 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 Now with hydronephrosis and right sided inguinal hernia Plan: 1. Vomiting - Resolved - Will continue to monitor closely for signs of aspiration pneumonia 2. Hydronephrosis - Will order renal scan with diuretic eval obstruction w/ need for possible nephrostomy - [facility] for procedure - Per urology, no intervention at this time, continue close monitoring of renal fxn 3. Right inguinal hernia - Hernia with fluid - Dr. Orr re consulted as preformed previous hemicolectomy in 06/2015 4. Anoxic brain injury s/p brainstem CVAs - Mental status unchanged 5. Respiratory failure secondary to anoxic brain injury - Cont trach collar - Duonebs PRN 6. HTN - Cont lisinopril, metoprolol, amlodipine 7. Multiple pressure ulcers - single remaining Stage III healing pressure ulcer on left buttock - wet to dry dressing 8. DM II - Continue Levemir at 14u sq qhs - ISS BGM ACHS 9. Nutrition: - Tube feeds on hold, RD to reassess tomorrow following TF incident noted above 10. Prophylaxis - SCDs bilaterally - No chemical anticoagulation 2/2 spontaneous gluteal bleed and severe GI bleed - PT CODE STATUS: DNR Visit Type - Emergency Visit Emergency Visit: Yes ED Registration Date: 06/27/15 Care time: The patient presented to the Emergency Department on the above date and was hospitalized for further evaluation of their emergent condition. - New Patient This patient is new to me today: No - Critical Care Critical Care patient: No Bacid - PO 1 tab DAILY KWAKU Administration Lisinopril 40 mg 12/30/15 10:00 05/22/16 11:14 Prinivil - GT 40 mg DAILY [facility] Administration Metoprolol Tartrate 150 mg 12/29/15 22:00 05/22/16 11:14 Lopressor - GT 150 mg BID [facility] Administration Metoprolol Tartrate 5 mg 12/29/15 10:43 Lopressor Injection - IVPB Q6H PRN HYPERTENSION Multivitamins 5 ml 12/30/15 10:00 05/22/16 11:16 Thera-Plus - GT 5 ml DAILY [facility]WAK[facility] Administration Pantoprazole Sodium 40 mg 12/30/15 10:00 05/22/16 11:14 Protonix Packets For Oral Suspension - GT 40 mg DAILY [facility] Administration Scopolamine HBr 1 patch 05/20/16 15:45 05/20/16 16:20 Transderm-Scop - TD 1 patch Q72H KWAKU Administration Imaging: - CTAP: moderate to marked left-sided hydronephrosis likely due to UVJ obstruction Assessment: 75 year old male with PMHx of HTN, IDDM, inguinal hernia who presented to the ED with diverticular bleed s/p right hemicolectomy. 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 Now with hydronephrosis and right sided inguinal hernia Plan: Vomiting, resolved - Will continue to monitor closely for signs of aspiration pneumonia Hydronephrosis - Will order renal scan with diuretic - [facility] - Per urology, no intervention at this time, continue close monitoring of renal fxn and Right inguinal hernia --CTAP: right inguinal hernia sac with fluid, extending to the ipsilateral hemiscrotum; no free fluid in pelvis/abdomen --will obtain surgery consult Anoxic brain injury s/p brainstem CVAs - Mental status unchanged Respiratory failure secondary to anoxic brain injury - Cont trach collar - Duonebs PRN HTN - BP well-controlled - Continue lisinopril, metoprolol, amlodipine Multiple pressure ulcers - single remaining Stage III healing pressure ulcer on left buttock - wet to dry dressing IDDM - Continue Levemir at 14u sq qhs - ISS BGM ACHS F/E/N - Tube feeds restarted, goal rate reduced to decrease chance of vomiting Prophylaxis - SCDs bilaterally - No chemical anticoagulation 2/2 spontaneous gluteal bleed and severe GI bleed - PT CODE STATUS: DNR
[2016-05-22] MEDS: ALBUTEROL SO4 2.5/IPRATROPIUM 0.5 INH SOL 3 ML VIAL.NEB. NEB PRN (22:00)
[2016-05-22] MEDS: INSULIN DETEMIR 100 UNITS/ML MDV SQ SCH ×2 (22:51→22:57)
[2016-05-23] MEDS: INSULIN SLIDING SCALE (NOVOLOG) 1 VIAL SQ SCH ×2 (06:43→17:18)
[2016-05-23] MEDS: METOPROLOL TARTRATE 50 MG TABLET (FP) GT SCH ×2 (10:53→21:59)
[2016-05-23] MEDS: LACTOBACILLUS ACIDOPHILUS 1 EACH TAB (FP) PO SCH (10:53)
[2016-05-23] MEDS: LISINOPRIL 20 MG TABLET (FP) GT SCH (10:53)
[2016-05-23] MEDS: PANTOPRAZOLE SOD 40 MG SUSPENSION PACKET GT SCH (10:53)
[2016-05-23] MEDS: MULTIVITAMINS THERAPEUTIC GT SCH (10:54)
[2016-05-23] MEDS: amLODIPine BESYLATE 10 MG TABLET (FP) GT SCH (10:54)
--- NOTE | 2016-05-23 14:46 | CONSULT ---
Consult Consult Specialty:: surgery for Dr. Cardoza Referred by:: medicine Reason for Consultation:: We have been asked to surgically evaluate this patient for a right inguinal hernia. - History of Present Illness History of Present Illness: This patient has been hospitalized here for almost one year. This 75 year old male with a PMH of HTN and IDDM presented to the ED at that time with a diverticular bleed. He underwent a right hemicolectomy. Since that time the patient had a brainstem CVA with anoxic brain injury. Subsequently he had a tracheostomy and PEG placement, and placement of an IVC filter. The hernia appears to be an incidental finding on a CT scan that was performed after patient had 2 recent episodes of vomiting following a tube feed. - History Source History Provided By: Medical Record Limitations to Obtaining History: Clinical Condition - Past Medical History [employer]: Yes: CVA Cardio/Vascular: Yes: HTN Gastrointestinal: Yes: GI Bleed Endocrine: Yes: Diabetes Mellitus - Past Surgical History Past Surgical History: Yes: Colectomy Additional Surgical History: s/p right hemicolectomy, tracheostomy, PEG tube placement, and IVC filter. - Alcohol/Substance Use Hx Alcohol Use: No - Smoking History Smoking history: Never smoked Have you smoked in the past 12 months: No Aproximately how many cigarettes per day: 0 Home Medications - Allergies Allergies/Adverse Reactions: Allergies Allergy/AdvReac Type Severity Reaction Status Date / Time No Known Allergies Allergy Verified 06/26/15 21:31 - Home Medications Home Medications: Ambulatory Orders Amino Acids/Protein Hydrolys [Prostat Sugar-Free Packet -] 30 ml GT DAILY packet 08/09/15 Amlodipine Besylate [Norvasc -] 10 mg GT DAILY tablet 08/09/15 Chlorhexidine Gluconate [Peridex -] 15 ml MM BID cup 08/09/15 Insulin (Levemir) [Levemir Flexpen -] 25 units SQ HS pen 08/09/15 Insulin (Novolog) [Novolog Flexpen -] 3 units SQ Q6HPO pen 08/09/15 Insulin Sliding Scale [Novolog Vial Sliding Scale -] 0 units SQ Q6HPO pen 08/09 Lisinopril [Prinivil] 20 mg GT DAILY tablet 08/09/15 Metoprolol Tartrate Injection [Lopressor Injection -] 5 mg IVPB Q6H PRN #0 vial 08/09/15 Metoprolol Tartrate [Lopressor -] 100 mg GT BID tablet 08/09/15 Ondansetron Injection [Zofran Injection] 4 mg IVPB Q6H PRN #0 vial 08/09/15 Pantoprazole Suspension [Protonix Packets For Oral Suspension -] 40 mg GT DAILY packet 08/09/15 Vancomycin Oral Solution 125 mg GT Q6HPO ml 08/09/15 Family Disease History - Family Disease History Other Family History: non-contributory Review of Systems Unable to obtain ROS, reason: Patient is nonverbal Physical Exam Vital Signs: Vital Signs Temperature 98.2 F 05/23/16 08:15 Pulse Rate 65 05/23/16 09:44 Respiratory Rate 16 05/23/16 08:15 Blood Pressure 154/86 05/23/16 08:15 O2 Sat by Pulse Oximetry (%) 100 05/23/16 09:44 Constitutional: Yes: No Distress (Elderly male, awake, nonverbal, bedridden) Cardiovascular: Yes: WNL, Regular Rate and Rhythm Respiratory: Yes: WNL, Regular Gastrointestinal: Yes: WNL, Soft, Other (presence of PEG tube). No: Tenderness Renal/: Yes: Other (unable to perform valsalva. No palpable inguinal hernia. Testes are descended b/l without swelling or tenderness.). No: Scrotal Edema Extremities: Yes: Other (bilateral UE contracted over upper abdomen. Bilateral LE extended.) Edema: No Peripheral Pulses WNL: Yes Neurological: Yes: Alert Labs: CBC, BMP 05/22/16 06:00 05/22/16 06:00 Imaging - Results X-ray: Report Reviewed (abdominal x ray of 05/19 shows some abdominal distention. Free air not seen.) Cat Scan: Report Reviewed (interval development of free intraperitoneal fluid within a right lateral hernia extending into the ipsilateral hemiscrotum. No associated bowel herniation.) Assessment/Plan 75 year old bedbound male, with multiple comorbidities including HTN, IDDM, diverticular bleed, s/p right hemicolectomy, s/p brainstem CVA and anoxic brain injury, s/p tracheostomy and PEG with with incidental finding of right inguinal hernia on CT scan. Unable to palpate hernia or have patient perform a valsalva. No bowel involvement currently. No surgical intervention at this time. Reconsult if condition warrants. Case discussed with Dr. Cardoza.
[2016-05-23] MEDS: SCOPOLAMINE HYDROBROMIDE 1 PATCH PATCH.TD72 TD SCH (16:53)
--- NOTE | 2016-05-23 17:31 | PN ---
Physical Exam: Subjective: Patient seen and examined. Awake, spontaneous movement in bed. Objective: Vital Signs Period Temp Pulse Resp BP Sys/Santiago Pulse Ox Last 24 Hr 98.0 F-99.8 F 58-82 16-20 113-159/52-86 95-100 PE: Neuro: Eyes open. Non-verbal Pulm: Trach collar, clear anteriorly CV: s1 s2 rrr no mrg Abd: peg tube cdi, s nt nd +bs Ext: no edema, warm Laboratory Results - last 24 hr 05/22/16 05/22/16 05/23/16 17:12 22:54 06:41 POC Glucometer 122 110 105 05/23/16 16:59 POC Glucometer 117 Active Medications Generic Name Dose Route Start Last Admin Trade Name Freq PRN Reason Stop Dose Admin Acetaminophen 650 mg 12/29/15 10:43 05/18/16 10:11 Tylenol Oral Solution - GT 650 mg Q6H PRN Administration FEVER Albuterol/Ipratropium 1 amp 05/02/16 11:51 05/22/16 22:00 Duoneb - NEB 1 amp Q6H PRN Administration SHORTNESS OF BREATH Amlodipine Besylate 10 mg 12/30/15 10:00 05/23/16 10:54 Norvasc - GT 10 mg DAILY KWAKU Administration Guaifenesin 10 ml 12/29/15 10:43 05/16/16 10:16 Robitussin Dm - PO 10 ml Q6H PRN Administration COUGH Insulin Aspart 1 vial 01/28/16 16:30 05/23/16 17:18 Novolog Vial Sliding Scale - SQ Not Given BIDI [facility] Protocol Insulin Detemir 14 units 05/05/16 22:00 05/22/16 22:57 Levemir Vial SQ Not Given HS [facility] Lactobacillus Acidophilus 1 tab 12/30/15 10:00 05/23/16 10:53 Bacid - PO 1 tab DAILY KWAKU Administration Lisinopril 40 mg 12/30/15 10:00 05/23/16 10:53 Prinivil - GT 40 mg DAILY KWAKU Administration Metoprolol Tartrate 150 mg 12/29/15 22:00 05/23/16 10:53 Lopressor - GT 150 mg BID KWAKU Administration Metoprolol Tartrate 5 mg 12/29/15 10:43 Lopressor Injection - IVPB Q6H PRN HYPERTENSION Multivitamins 5 ml 12/30/15 10:00 05/23/16 10:54 Thera-Plus - GT 5 ml DAILY KWAKU Administration Pantoprazole Sodium 40 mg 12/30/15 10:00 05/23/16 10:53 Protonix Packets For Oral Suspension - GT 40 mg DAILY KWAKU Administration Scopolamine HBr 1 patch 05/20/16 15:45 05/23/16 16:53 Transderm-Scop - TD 1 patch Q72H KWAKU Administration Imaging: - CTAP: moderate to marked left-sided hydronephrosis likely due to UVJ obstruction - CTAP: right inguinal hernia sac with fluid, extending to the ipsilateral hemiscrotum; no free fluid in pelvis/abdomen Assessment: 75 year old male with PMHx of HTN, IDDM, inguinal hernia who presented to the ED with diverticular bleed s/p right hemicolectomy. 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 Now with hydronephrosis and right sided inguinal hernia Plan: 1. Vomiting - Resolved 2. Hydronephrosis - Renal scan with diuretic ordered - Place castellano for procedure - Per urology, no intervention at this time, continue close monitoring of renal fxn 3. Right inguinal hernia - D/w surgery no bowel involvement and no surgery at this time 4. Anoxic brain injury s/p brainstem CVAs - Mental status unchanged 5. Respiratory failure secondary to anoxic brain injury - Cont trach collar - Duonebs PRN 6. HTN - Cont lisinopril, metoprolol, amlodipine 7. Multiple pressure ulcers - single remaining Stage III healing pressure ulcer on left buttock - wet to dry dressing 8. DM II - Continue Levemir at 14u sq qhs - ISS BGM ACHS 9. Nutrition: - Tube feeds on hold, RD to reassess tomorrow following TF incident noted above 10. Prophylaxis - SCDs bilaterally - No chemical anticoagulation 2/2 spontaneous gluteal bleed and severe GI bleed - PT CODE STATUS: DNR Visit Type - Emergency Visit Emergency Visit: Yes ED Registration Date: 06/27/15 Care time: The patient presented to the Emergency Department on the above date and was hospitalized for further evaluation of their emergent condition. - New Patient This patient is new to me today: No - Critical Care Critical Care patient: No
[2016-05-23] MEDS: INSULIN DETEMIR 100 UNITS/ML MDV SQ SCH (21:50)
[2016-05-24] MEDS: INSULIN SLIDING SCALE (NOVOLOG) 1 VIAL SQ SCH ×2 (06:04→17:23)
--- NOTE | 2016-05-24 11:40 | PN ---
Physical Exam: Subjective: Patient seen and examined at bedside. No acute events overnight. Objective: Vital Signs Period Temp Pulse Resp BP Sys/Santiago Pulse Ox Last 24 Hr 98.1 F-99.8 F 58-94 18-19 113-159/70-83 96 PE: Neuro: Eyes open. Non-verbal Pulm: Trach collar, clear anteriorly CV: s1 s2 rrr no mrg Abd: peg tube cdi, s nt nd +bs Ext: no edema, warm Laboratory Results - last 24 hr 05/23/16 05/23/16 05/24/16 16:59 20:58 05:54 POC Glucometer 117 97 97 Active Medications Generic Name Dose Route Start Last Admin Trade Name Freq PRN Reason Stop Dose Admin Acetaminophen 650 mg 12/29/15 10:43 05/18/16 10:11 Tylenol Oral Solution - GT 650 mg Q6H PRN Administration FEVER Albuterol/Ipratropium 1 amp 05/02/16 11:51 05/22/16 22:00 Duoneb - NEB 1 amp Q6H PRN Administration SHORTNESS OF BREATH Amlodipine Besylate 10 mg 12/30/15 10:00 05/23/16 10:54 Norvasc - GT 10 mg DAILY KWAKU Administration Guaifenesin 10 ml 12/29/15 10:43 05/16/16 10:16 Robitussin Dm - PO 10 ml Q6H PRN Administration COUGH Insulin Aspart 1 vial 01/28/16 16:30 05/24/16 06:04 Novolog Vial Sliding Scale - SQ Not Given BIDI [facility] Protocol Insulin Detemir 14 units 05/05/16 22:00 05/23/16 21:50 Levemir Vial SQ Not Given HS [facility] Lactobacillus Acidophilus 1 tab 12/30/15 10:00 05/23/16 10:53 Bacid - PO 1 tab DAILY KWAKU Administration Lisinopril 40 mg 12/30/15 10:00 05/23/16 10:53 Prinivil - GT 40 mg DAILY KWAKU Administration Metoprolol Tartrate 150 mg 12/29/15 22:00 05/23/16 21:59 Lopressor - GT 150 mg BID KWAKU Administration Metoprolol Tartrate 5 mg 12/29/15 10:43 Lopressor Injection - IVPB Q6H PRN HYPERTENSION Multivitamins 5 ml 12/30/15 10:00 05/23/16 10:54 Thera-Plus - GT 5 ml DAILY KWAKU Administration Pantoprazole Sodium 40 mg 12/30/15 10:00 05/23/16 10:53 Protonix Packets For Oral Suspension - GT 40 mg DAILY KWAKU Administration Scopolamine HBr 1 patch 05/20/16 15:45 05/23/16 16:53 Transderm-Scop - TD 1 patch Q72H KWAKU Administration Imaging: - CTAP: moderate to marked left-sided hydronephrosis likely due to UVJ obstruction - CTAP: right inguinal hernia sac with fluid, extending to the ipsilateral hemiscrotum; no free fluid in pelvis/abdomen Assessment: 75 year old male with PMHx of HTN, IDDM, inguinal hernia who presented to the ED with diverticular bleed s/p right hemicolectomy. 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 Now with hydronephrosis and right sided inguinal hernia Plan: 1. Vomiting - Resolved 2. Hydronephrosis - Renal scan with diuretic ordered, will speak with daughter regarding consent with social work, as she has not returned initial phone call - If daughter does not return phone call, will need to d/c castellano - Per urology, no intervention at this time, continue close monitoring of renal fxn 3. Right inguinal hernia - D/w surgery no bowel involvement and no surgery at this time 4. Anoxic brain injury s/p brainstem CVAs - Mental status unchanged 5. Respiratory failure secondary to anoxic brain injury - Cont trach collar - Duonebs PRN 6. HTN - Cont lisinopril, metoprolol, amlodipine 7. Multiple pressure ulcers - single remaining Stage III healing pressure ulcer on left buttock - wet to dry dressing 8. DM II - Continue Levemir at 14u sq qhs - ISS BGM ACHS 9. Nutrition: - Awaiting RD evaluation for restarting of TF 10. Prophylaxis - SCDs bilaterally - No chemical anticoagulation 2/2 spontaneous gluteal bleed and severe GI bleed - PT CODE STATUS: DNR Visit Type - Emergency Visit Emergency Visit: Yes ED Registration Date: 06/27/15 Care time: The patient presented to the Emergency Department on the above date and was hospitalized for further evaluation of their emergent condition. - New Patient This patient is new to me today: No - Critical Care Critical Care patient: No
[2016-05-24] MEDS: LISINOPRIL 20 MG TABLET (FP) GT SCH (11:50)
[2016-05-24] MEDS: amLODIPine BESYLATE 10 MG TABLET (FP) GT SCH (11:51)
[2016-05-24] MEDS: METOPROLOL TARTRATE 50 MG TABLET (FP) GT SCH ×2 (11:51→22:21)
[2016-05-24] MEDS: PANTOPRAZOLE SOD 40 MG SUSPENSION PACKET GT SCH (11:51)
[2016-05-24] MEDS: LACTOBACILLUS ACIDOPHILUS 1 EACH TAB (FP) PO SCH (11:51)
[2016-05-24] MEDS: MULTIVITAMINS THERAPEUTIC GT SCH (12:16)
[2016-05-24] MEDS: INSULIN DETEMIR 100 UNITS/ML MDV SQ SCH (22:49)
[2016-05-25] MEDS: INSULIN SLIDING SCALE (NOVOLOG) 1 VIAL SQ SCH ×2 (06:54→16:38)
[2016-05-25 08:37] LABS: ALBUMIN 3.6 g/dl (3.4-5.0); ALK PHOS 93 U/L (45-117); ANION GAP 9 (8-16); BILIRUBIN,TOTAL 0.4 mg/dL (0.2-1.0); CALCIUM 10.5 mg/dL (8.5-10.1); CO2 29 mmol/L (21-32); CREATININE 0.9 mg/dL (0.7-1.3); GLUCOSE,RANDOM 131 mg/dL (74-106); SGOT/AST 13 U/L (15-37); SGPT/ALT 22 U/L (12-78); TOT PROT 8.3 g/dl (6.4-8.2)
[2016-05-25] MEDS: LACTOBACILLUS ACIDOPHILUS 1 EACH TAB (FP) PO SCH (11:27)
[2016-05-25] MEDS: amLODIPine BESYLATE 10 MG TABLET (FP) GT SCH (11:28)
[2016-05-25] MEDS: PANTOPRAZOLE SOD 40 MG SUSPENSION PACKET GT SCH (11:28)
[2016-05-25] MEDS: METOPROLOL TARTRATE 50 MG TABLET (FP) GT SCH ×2 (11:28→21:33)
[2016-05-25] MEDS: MULTIVITAMINS THERAPEUTIC GT SCH (11:28)
[2016-05-25] MEDS: LISINOPRIL 20 MG TABLET (FP) GT SCH (11:28)
--- NOTE | 2016-05-25 13:29 | PN ---
Progress Note (short form) - Note Progress Note: Hospitalist Progress Note This patient presented to the emergency department and was admitted for further evaluation of their emergent condition. SUBJECTIVE:No acute events overnight. Daughter called overnight. Return call place,awaiting call back from daughter. OBJECTIVE: Vital Signs Period Temp Pulse Resp BP Sys/Santiago Pulse Ox Last 24 Hr 98.0 F-99.1 F 64-104 16-20 141-168/78-104 95 GENERAL: no acute distress PULMONARY: trach collar, CTAB CARDIOVASCULAR: nS1,S2, RRR, no RMG ABDOMINAL: soft, nontender, nondistended, normoactive bowel sounds.+Peg tube EXTREMITIES: warm, well perfused, no edema NEUROLOGICAL: nonfocal CBCD WBC 7.9 K/mm3 (4.0-10.0) 05/22/16 06:00 RBC 4.23 M/mm3 (4.00-5.60) 05/22/16 06:00 Hgb 11.6 GM/dL (11.7-16.9) L D 05/22/16 06:00 Hct 36.5 % (35.4-49) 05/22/16 06:00 MCV 86.4 fl (80-96) 05/22/16 06:00 MCHC 31.9 g/dl (32.0-35.9) L 05/22/16 06:00 RDW 16.4 % (11.9-15.9) H 05/22/16 06:00 Plt Count 189 K/MM3 (134-434) 05/22/16 06:00 MPV 9.0 fl (7.5-11.1) 05/22/16 06:00 CMP Sodium 146 mmol/L (136-145) H 05/25/16 05:40 Potassium 3.6 mmol/L (3.5-5.1) 05/25/16 05:40 Chloride 108 mmol/L (98-107) H 05/25/16 05:40 Carbon Dioxide 29 mmol/L (21-32) 05/25/16 05:40 Anion Gap 9 (8-16) 05/25/16 05:40 BUN 19 mg/dL (7-18) H D 05/25/16 05:40 Creatinine 0.9 mg/dL (0.7-1.3) 05/25/16 05:40 Creat Clearance w eGFR > 60 (>60) 05/25/16 05:40 Calcium 10.5 mg/dL (8.5-10.1) H 05/25/16 05:40 Total Bilirubin 0.4 mg/dL (0.2-1.0) D 05/25/16 05:40 AST 13 U/L (15-37) L D 05/25/16 05:40 ALT 22 U/L (12-78) D 05/25/16 05:40 Alkaline Phosphatase 93 U/L (45-117) 05/25/16 05:40 Total Protein 8.3 g/dl (6.4-8.2) H 05/25/16 05:40 Albumin 3.6 g/dl (3.4-5.0) 05/25/16 05:40 Current Medications Generic Name Dose Route Start Last Admin Trade Name Freq PRN Reason Stop Dose Admin Acetaminophen 650 mg 12/29/15 10:43 05/18/16 10:11 Tylenol Oral Solution - GT 650 mg Q6H PRN Administration FEVER Albuterol/Ipratropium 1 amp 05/02/16 11:51 05/22/16 22:00 Duoneb - NEB 1 amp Q6H PRN Administration SHORTNESS OF BREATH Amlodipine Besylate 10 mg 12/30/15 10:00 05/25/16 11:28 Norvasc - GT 10 mg DAILY KWAKU Administration Guaifenesin 10 ml 12/29/15 10:43 05/16/16 10:16 Robitussin Dm - PO 10 ml Q6H PRN Administration COUGH Insulin Aspart 1 vial 01/28/16 16:30 05/25/16 06:54 Novolog Vial Sliding Scale - SQ Not Given BIDI [facility] Protocol Insulin Detemir 14 units 05/05/16 22:00 05/24/16 22:49 Levemir Vial SQ Not Given HS [facility] Lactobacillus Acidophilus 1 tab 12/30/15 10:00 05/25/16 11:27 Bacid - PO 1 tab DAILY KWAKU Administration Lisinopril 40 mg 12/30/15 10:00 05/25/16 11:28 Prinivil - GT 40 mg DAILY KWAKU Administration Metoprolol Tartrate 150 mg 12/29/15 22:00 05/25/16 11:28 Lopressor - GT 150 mg BID KWAKU Administration Metoprolol Tartrate 5 mg 12/29/15 10:43 Lopressor Injection - IVPB Q6H PRN HYPERTENSION Multivitamins 5 ml 12/30/15 10:00 05/25/16 11:28 Thera-Plus - GT 5 ml DAILY KWAKU Administration Pantoprazole Sodium 40 mg 12/30/15 10:00 05/25/16 11:28 Protonix Packets For Oral Suspension - GT 40 mg DAILY KWAKU Administration Scopolamine HBr 1 patch 05/20/16 15:45 05/23/16 16:53 Transderm-Scop - TD 1 patch Q72H KWAKU Administration - CTAP: moderate to marked left-sided hydronephrosis likely due to UVJ obstruction - CTAP: right inguinal hernia sac with fluid, extending to the ipsilateral hemiscrotum; no free fluid in pelvis/abdomen ASSESSMENT/PLAN: Patient is a 75 year old male with PMHx of HTN, IDDM, inguinal hernia who presented to the ED with diverticular bleed s/p right hemicolectomy. 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 Now with hydronephrosis and right sided inguinal hernia Vomiting - Resolved Hydronephrosis - Renal scan with diuretic ordered, will speak with daughter regarding consent with social work, Daughter called back. Awaiting call. - Per urology, no intervention at this time, continue close monitoring of renal fxn Right inguinal hernia - Per surgery no bowel involvement and no surgery at this time. Continue to monitor. Anoxic brain injury s/p brainstem CVAs - Mental status unchanged Respiratory failure secondary to anoxic brain injury - Cont trach collar - Duonebs PRN HTN - Cont lisinopril, metoprolol, amlodipine Multiple pressure ulcers - single remaining Stage III healing pressure ulcer on left buttock - wet to dry dressing DM II - Continue Levemir at 14u sq qhs - ISS BGM ACHS Nutrition: - Awaiting RD evaluation for restarting of TF Prophylaxis - SCDs bilaterally - No chemical anticoagulation 2/2 spontaneous gluteal bleed and severe GI bleed - PT CODE STATUS: DNR
[2016-05-25] MEDS: ACETAMINOPHEN 650 MG/20.3 ML ORAL SOLUTION (CUPS) GT PRN (17:54)
[2016-05-25] MEDS: INSULIN DETEMIR 100 UNITS/ML MDV SQ SCH (21:41)
[2016-05-25 22:15] LABS: URINE APPEARANCE CLOUDY; URINE BILIRUBIN NEGATIVE (NEGATIVE); URINE COLOR DKYELLOW; URINE GLUCOSE (UA) NEGATIVE (NEGATIVE); URINE KETONE NEGATIVE (NEGATIVE); URINE NITRITE POSITIVE (NEGATIVE); URINE UROBILINOGEN NEGATIVE E.U./dl (0.2-1.0)
[2016-05-25 22:39] LABS: URINE BLOOD 2+ (NEGATIVE); URINE LEUK ESTERASE 2+ (NEGATIVE); URINE PROTEIN 2+ (NEGATIVE)
[2016-05-25 23:01] LABS: URINE BACTERIA MANY /hpf (NONE SEEN); URINE MUCUS MANY; URINE RBC 90 /hpf (0-3); URINE WBC 57 /hpf (3-5)
[2016-05-26] MEDS: ACETAMINOPHEN 650 MG/20.3 ML ORAL SOLUTION (CUPS) GT PRN ×3 (02:37→21:31)
[2016-05-26] MEDS: INSULIN SLIDING SCALE (NOVOLOG) 1 VIAL SQ SCH ×2 (06:29→17:05)
[2016-05-26] MEDS: PANTOPRAZOLE SOD 40 MG SUSPENSION PACKET GT SCH (11:24)
[2016-05-26] MEDS: METOPROLOL TARTRATE 50 MG TABLET (FP) GT SCH ×2 (11:24→21:29)
[2016-05-26] MEDS: LACTOBACILLUS ACIDOPHILUS 1 EACH TAB (FP) PO SCH (11:24)
[2016-05-26] MEDS: LISINOPRIL 20 MG TABLET (FP) GT SCH (11:31)
[2016-05-26] MEDS: amLODIPine BESYLATE 10 MG TABLET (FP) GT SCH (11:31)
[2016-05-26] MEDS: MULTIVITAMINS THERAPEUTIC GT SCH (11:32)
--- NOTE | 2016-05-26 13:48 | PN ---
Progress Note (short form) - Note Progress Note: OPENS eyes does not follow commands castellano placed over the weekend for renal scan Vital Signs Period Temp Pulse Resp BP Sys/Santiago Pulse Ox Last 24 Hr 99.1 F-102.6 F 89-110 18-22 132-152/73-97 9-95 cor-rrr lungs clear abd soft,nt ext no edema CBC, BMP 05/22/16 06:00 05/25/16 05:40 cultures pending a/p fevers- new ?castellano related UTI d/w hospitalist d/c castellano if possible empiric cefepime f/u cultures adjust antibiotics as needed
[2016-05-26] MEDS: SCOPOLAMINE HYDROBROMIDE 1 PATCH PATCH.TD72 TD SCH (15:55)
[2016-05-26] MEDS: CEFTAZIDIME PENTAHYDRATE 1 GM in DEXTROSE 5%-WATER - 50 ML IVPB SCH ×2 (16:30→18:17)
--- NOTE | 2016-05-26 17:20 | PN ---
Physical Exam: Subjective: Patient seen and examined. Awake w/ non purposeful movement. Febrile since yesterday Objective: Vital Signs Period Temp Pulse Resp BP Sys/Santiago Pulse Ox Last 24 Hr 100.8 F-102.6 F 72-110 18-19 125-144/70-85 9-95 PE: Neuro: Eyes open. Non-verbal Pulm: Trach collar, clear anteriorly CV: s1 s2 rrr no mrg Abd: peg tube cdi, s nt nd +bs : castellano Ext: no edema, warm Laboratory Results - last 24 hr 05/25/16 05/25/16 05/26/16 21:27 21:35 06:28 POC Glucometer 179 165 Urine Color Dkyellow Urine Appearance Cloudy Urine pH 5.0 D Ur Specific [place] 1.023 Urine Protein 2+ H Urine Glucose (UA) Negative Urine Ketones Negative Urine Blood 2+ H Urine Nitrite Positive Urine Bilirubin Negative Urine Urobilinogen Negative Ur Leukocyte Esterase 2+ H Urine RBC 90 Urine WBC 57 Ur Epithelial Cells Rare Urine Bacteria Many Urine Mucus Many Active Medications Generic Name Dose Route Start Last Admin Trade Name Freq PRN Reason Stop Dose Admin Acetaminophen 650 mg 05/26/16 14:23 Tylenol Oral Solution - GT Q4H PRN FEVER Albuterol/Ipratropium 1 amp 05/02/16 11:51 05/22/16 22:00 Duoneb - NEB 1 amp Q6H PRN Administration SHORTNESS OF BREATH Amlodipine Besylate 10 mg 12/30/15 10:00 05/26/16 11:31 Norvasc - GT 10 mg DAILY KWAKU Administration Guaifenesin 10 ml 12/29/15 10:43 05/16/16 10:16 Robitussin Dm - PO 10 ml Q6H PRN Administration COUGH Ceftazidime 1 gm/ Dextrose 50 mls @ 100 mls/hr 05/26/16 16:30 IVPB Q8H-IV KWAKU Insulin Aspart 1 vial 01/28/16 16:30 05/26/16 17:05 Novolog Vial Sliding Scale - SQ Not Given BIDI [facility] Protocol Insulin Detemir 14 units 05/05/16 22:00 05/25/16 21:41 Levemir Vial SQ 14 units HS KWAKU Administration Lactobacillus Acidophilus 1 tab 12/30/15 10:00 05/26/16 11:24 Bacid - PO 1 tab DAILY KWAKU Administration Lisinopril 40 mg 12/30/15 10:00 05/26/16 11:31 Prinivil - GT 40 mg DAILY KWAKU Administration Metoprolol Tartrate 150 mg 12/29/15 22:00 05/26/16 11:24 Lopressor - GT 150 mg BID KWAKU Administration Metoprolol Tartrate 5 mg 12/29/15 10:43 Lopressor Injection - IVPB Q6H PRN HYPERTENSION Multivitamins 5 ml 12/30/15 10:00 05/26/16 11:32 Thera-Plus - GT 5 ml DAILY KWAKU Administration Pantoprazole Sodium 40 mg 12/30/15 10:00 05/26/16 11:24 Protonix Packets For Oral Suspension - GT 40 mg DAILY KWAKU Administration Scopolamine HBr 1 patch 05/20/16 15:45 05/26/16 15:55 Transderm-Scop - TD 1 patch Q72H KWAKU Administration Imaging: - CTAP: moderate to marked left-sided hydronephrosis likely due to UVJ obstruction - CTAP: right inguinal hernia sac with fluid, extending to the ipsilateral hemiscrotum; no free fluid in pelvis/abdomen Assessment: 75 year old male with PMHx of HTN, IDDM, inguinal hernia who presented to the ED with diverticular bleed s/p right hemicolectomy. 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 Now with hydronephrosis and right sided inguinal hernia Plan: 1. Vomiting - Resolved 2. Hydronephrosis - Renal scan with diuretic done, report pending - D/c castellano - Per urology, no intervention at this time, continue close monitoring of renal fxn 3. Right inguinal hernia - D/w surgery no bowel involvement and no surgery at this time 4. Anoxic brain injury s/p brainstem CVAs - Mental status unchanged 5. Respiratory failure secondary to anoxic brain injury - Cont trach collar - Duonebs PRN 6. HTN - Cont lisinopril, metoprolol, amlodipine 7. Multiple pressure ulcers - single remaining Stage III healing pressure ulcer on left buttock - wet to dry dressing 8. DM II - Continue Levemir at 14u sq qhs - ISS BGM ACHS 9. Nutrition: - Awaiting RD evaluation for restarting of TF 10. Prophylaxis - SCDs bilaterally - No chemical anticoagulation 2/2 spontaneous gluteal bleed and severe GI bleed - PT CODE STATUS: DNR Visit Type - Emergency Visit Emergency Visit: Yes ED Registration Date: 06/27/15 Care time: The patient presented to the Emergency Department on the above date and was hospitalized for further evaluation of their emergent condition. - New Patient This patient is new to me today: No - Critical Care Critical Care patient: No
[2016-05-26] MEDS: INSULIN DETEMIR 100 UNITS/ML MDV SQ SCH (21:29)
[2016-05-27] MEDS: ACETAMINOPHEN 650 MG/20.3 ML ORAL SOLUTION (CUPS) GT PRN ×3 (01:45→22:39)
[2016-05-27] MEDS: CEFTAZIDIME PENTAHYDRATE 1 GM in DEXTROSE 5%-WATER - 50 ML IVPB SCH ×3 (01:46→17:02)
[2016-05-27] MEDS: INSULIN SLIDING SCALE (NOVOLOG) 1 VIAL SQ SCH ×2 (06:34→17:10)
[2016-05-27] MEDS: LACTOBACILLUS ACIDOPHILUS 1 EACH TAB (FP) PO SCH (09:34)
[2016-05-27] MEDS: amLODIPine BESYLATE 10 MG TABLET (FP) GT SCH (09:35)
[2016-05-27] MEDS: LISINOPRIL 20 MG TABLET (FP) GT SCH (09:35)
[2016-05-27] MEDS: PANTOPRAZOLE SOD 40 MG SUSPENSION PACKET GT SCH (09:35)
[2016-05-27] MEDS: METOPROLOL TARTRATE 50 MG TABLET (FP) GT SCH ×2 (09:35→22:18)
[2016-05-27] MEDS: MULTIVITAMINS THERAPEUTIC GT SCH (09:35)
--- NOTE | 2016-05-27 10:13 | PN ---
Progress Note (short form) - Note Progress Note: ID Ceftazidime given in response to fevers which have been recurrent Nurses suctioning respiratory secretions Trach O2 dependent Selected Entries 05/27/16 05/27/16 05/27/16 01:42 03:45 06:00 Temperature 103.2 F H 101.8 F H Respiratory 20 Rate Blood Pressure 143/77 05/27/16 06:32 Temperature 100.4 F H Respiratory Rate Blood Pressure Microbiology 05/05/16 19:00 Sputum - Endotracheal Suction W/O Vent Gram Stain - Final 05/05/16 19:00 Sputum - Endotracheal Suction W/O Vent Sputum Culture - Final Pseudomonas Aeruginosa 05/25/16 18:45 Urine - Urine Schwartz Urine Culture - Preliminary Non Lactose Fermenting Gnb 05/25/16 18:45 Blood - Peripheral Venous Blood Culture - Preliminary NO GROWTH OBTAINED AFTER 24 HOURS, INCUBATION TO CONTINUE FOR 4 DAYS. 05/25/16 18:45 Blood - Peripheral Venous Blood Culture - Preliminary NO GROWTH OBTAINED AFTER 24 HOURS, INCUBATION TO CONTINUE FOR 4 DAYS. Laboratory Tests 02/03/16 05/22/16 05/25/16 06:25 06:00 21:27 WBC 7.9 Hgb 11.6 L D Plt Count 189 ESR 100 H Ur Leukocyte Esterase 2+ H Urine RBC 90 Urine WBC 57 Assessment Anoxic brain injury now with rcurren fever " too many possible sources" Plan Lets continue Fortaz and see how his fever responds Martín HERRERA
--- NOTE | 2016-05-27 15:33 | PN ---
Physical Exam: SUBJECTIVE: Patient seen and examined. No changes. low grade fever this am OBJECTIVE: Vital Signs Period Temp Pulse Resp BP Sys/Santiago Pulse Ox Last 24 Hr 99.2 F-103.2 F 76-103 20-20 123-143/71-77 96-96 PE: Neuro: Eyes open. Non-verbal Pulm: Trach collar, clear anteriorly CV: s1 s2 rrr no mrg Abd: peg tube cdi, s nt nd +bs Ext: no edema, warm Laboratory Results - last 24 hr 05/26/16 05/27/16 17:03 06:02 POC Glucometer 142 155 Active Medications Generic Name Dose Route Start Last Admin Trade Name Freq PRN Reason Stop Dose Admin Acetaminophen 650 mg 05/26/16 14:23 05/27/16 09:35 Tylenol Oral Solution - GT 650 mg Q4H PRN Administration FEVER Albuterol/Ipratropium 1 amp 05/02/16 11:51 05/22/16 22:00 Duoneb - NEB 1 amp Q6H PRN Administration SHORTNESS OF BREATH Amlodipine Besylate 10 mg 12/30/15 10:00 05/27/16 09:35 Norvasc - GT 10 mg DAILY KWAKU Administration Guaifenesin 10 ml 12/29/15 10:43 05/16/16 10:16 Robitussin Dm - PO 10 ml Q6H PRN Administration COUGH Ceftazidime 1 gm/ Dextrose 50 mls @ 100 mls/hr 05/26/16 16:30 05/27/16 09:34 IVPB 100 mls/hr Q8H-IV KWAKU Administration Insulin Aspart 1 vial 01/28/16 16:30 05/27/16 06:34 Novolog Vial Sliding Scale - SQ 2 units BIDI KWAKU Administration Protocol Insulin Detemir 14 units 05/05/16 22:00 05/26/16 21:29 Levemir Vial SQ 14 units HS KWAKU Administration Lactobacillus Acidophilus 1 tab 12/30/15 10:00 05/27/16 09:34 Bacid - PO 1 tab DAILY KWAKU Administration Lisinopril 40 mg 12/30/15 10:00 05/27/16 09:35 Prinivil - GT 40 mg DAILY KWAKU Administration Metoprolol Tartrate 150 mg 12/29/15 22:00 05/27/16 09:35 Lopressor - GT 150 mg BID KWAKU Administration Metoprolol Tartrate 5 mg 12/29/15 10:43 Lopressor Injection - IVPB Q6H PRN HYPERTENSION Multivitamins 5 ml 12/30/15 10:00 05/27/16 09:35 Thera-Plus - GT 5 ml DAILY KWAKU Administration Pantoprazole Sodium 40 mg 12/30/15 10:00 05/27/16 09:35 Protonix Packets For Oral Suspension - GT 40 mg DAILY KWAKU Administration Scopolamine HBr 1 patch 05/20/16 15:45 05/26/16 15:55 Transderm-Scop - TD 1 patch Q72H KWAKU Administration Microbiology 05/25/16 18:45 Urine Culture - Preliminary Urine - Urine Schwartz Non Lactose Fermenting Gnb 05/25/16 18:45 Blood Culture - Preliminary Blood - Peripheral Venous NO GROWTH OBTAINED AFTER 24 HOURS, INCUBATION TO CONTINUE FOR 4 DAYS. 05/25/16 18:45 Blood Culture - Preliminary Blood - Peripheral Venous NO GROWTH OBTAINED AFTER 24 HOURS, INCUBATION TO CONTINUE FOR 4 DAYS. 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 Now with hydronephrosis and right sided inguinal hernia Plan: 1. Vomiting - Resolved 2. Hydronephrosis - Renal scan with diuretic done show mod-linda left hydro - Per urology, no intervention at this time, continue close monitoring of renal fxn - Urology to comment on renal scan 3. UTI - pre milan cx w NL GNB - Continue fortaz (day 2) 4. Right inguinal hernia - D/w surgery no bowel involvement and no surgery at this time 5. Anoxic brain injury s/p brainstem CVAs - Mental status unchanged 6. Respiratory failure secondary to anoxic brain injury - Cont trach collar - Duonebs PRN 7. HTN - Cont lisinopril, metoprolol, amlodipine 8. Multiple pressure ulcers - single remaining Stage III healing pressure ulcer on left buttock - wet to dry dressing 9. DM II - Continue Levemir at 14u sq qhs - ISS BGM ACHS 10. Nutrition: - TF restarted per RD recs 11. Prophylaxis - SCDs bilaterally - No chemical anticoagulation 2/2 spontaneous gluteal bleed and severe GI bleed - PT CODE STATUS: DNR Visit Type - Emergency Visit Emergency Visit: Yes ED Registration Date: 06/27/15 Care time: The patient presented to the Emergency Department on the above date and was hospitalized for further evaluation of their emergent condition. - New Patient This patient is new to me today: No - Critical Care Critical Care patient: No
[2016-05-27] MEDS: INSULIN DETEMIR 100 UNITS/ML MDV SQ SCH (22:18)
[2016-05-28] MEDS: CEFTAZIDIME PENTAHYDRATE 1 GM in DEXTROSE 5%-WATER - 50 ML IVPB SCH ×3 (01:10→18:25)
[2016-05-28] MEDS: ACETAMINOPHEN 650 MG/20.3 ML ORAL SOLUTION (CUPS) GT PRN ×2 (02:40→10:14)
[2016-05-28] MEDS: INSULIN SLIDING SCALE (NOVOLOG) 1 VIAL SQ SCH ×2 (06:08→17:37)
[2016-05-28] MEDS: METOPROLOL TARTRATE 50 MG TABLET (FP) GT SCH ×2 (10:14→21:18)
[2016-05-28] MEDS: LACTOBACILLUS ACIDOPHILUS 1 EACH TAB (FP) PO SCH (10:14)
[2016-05-28] MEDS: PANTOPRAZOLE SOD 40 MG SUSPENSION PACKET GT SCH (10:14)
[2016-05-28] MEDS: amLODIPine BESYLATE 10 MG TABLET (FP) GT SCH (10:14)
[2016-05-28] MEDS: LISINOPRIL 20 MG TABLET (FP) GT SCH (10:14)
[2016-05-28] MEDS: MULTIVITAMINS THERAPEUTIC GT SCH (10:15)
--- NOTE | 2016-05-28 12:27 | PN ---
Physical Exam: Subjective: Patient seen and examined. Awake, no distress, low grade fever this am. Objective: Vital Signs Period Temp Pulse Resp BP Sys/Santiago Pulse Ox Last 24 Hr 98.4 F-102.2 F 67-117 18-20 121-138/63-85 94-96 PE: Neuro: Eyes open. Non-verbal Pulm: Trach collar, clear anteriorly CV: s1 s2 rrr no mrg Abd: peg tube cdi, s nt nd +bs Ext: no edema, warm Laboratory Results - last 24 hr 05/27/16 05/27/16 05/28/16 17:08 22:16 05:12 POC Glucometer 181 143 152 Active Medications Generic Name Dose Route Start Last Admin Trade Name Freq PRN Reason Stop Dose Admin Acetaminophen 650 mg 05/26/16 14:23 05/28/16 10:14 Tylenol Oral Solution - GT 650 mg Q4H PRN Administration FEVER Albuterol/Ipratropium 1 amp 05/02/16 11:51 05/22/16 22:00 Duoneb - NEB 1 amp Q6H PRN Administration SHORTNESS OF BREATH Amlodipine Besylate 10 mg 12/30/15 10:00 05/28/16 10:14 Norvasc - GT 10 mg DAILY KWAKU Administration Guaifenesin 10 ml 12/29/15 10:43 05/16/16 10:16 Robitussin Dm - PO 10 ml Q6H PRN Administration COUGH Ceftazidime 1 gm/ Dextrose 50 mls @ 100 mls/hr 05/26/16 16:30 05/28/16 10:14 IVPB 100 mls/hr Q8H-IV KWAKU Administration Insulin Aspart 1 vial 01/28/16 16:30 05/28/16 06:08 Novolog Vial Sliding Scale - SQ 2 units BIDI KWAKU Administration Protocol Insulin Detemir 14 units 05/05/16 22:00 05/27/16 22:18 Levemir Vial SQ 14 units HS KWAKU Administration Lactobacillus Acidophilus 1 tab 12/30/15 10:00 05/28/16 10:14 Bacid - PO 1 tab DAILY KWAKU Administration Lisinopril 40 mg 12/30/15 10:00 05/28/16 10:14 Prinivil - GT 40 mg DAILY KWAKU Administration Metoprolol Tartrate 150 mg 12/29/15 22:00 05/28/16 10:14 Lopressor - GT 150 mg BID KWAKU Administration Metoprolol Tartrate 5 mg 12/29/15 10:43 Lopressor Injection - IVPB Q6H PRN HYPERTENSION Multivitamins 5 ml 12/30/15 10:00 05/28/16 10:15 Thera-Plus - GT 5 ml DAILY KWAKU Administration Pantoprazole Sodium 40 mg 12/30/15 10:00 05/28/16 10:14 Protonix Packets For Oral Suspension - GT 40 mg DAILY KWAKU Administration Scopolamine HBr 1 patch 05/20/16 15:45 05/26/16 15:55 Transderm-Scop - TD 1 patch Q72H KWAKU Administration Microbiology 05/25/16 18:45 Urine Culture - Preliminary Urine - Urine Schwartz Providencia Stuartii Group D Strep Or Entero Coccus 05/25/16 18:45 Blood Culture - Preliminary Blood - Peripheral Venous NO GROWTH OBTAINED AFTER 48 HOURS, INCUBATION TO CONTINUE FOR 3 DAYS. 05/25/16 18:45 Blood Culture - Preliminary Blood - Peripheral Venous NO GROWTH OBTAINED AFTER 48 HOURS, INCUBATION TO CONTINUE FOR 3 DAYS. 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 Now with hydronephrosis and right sided inguinal hernia Plan: 1. Hydronephrosis - Renal scan with diuretic done show mod-linda left hydro - Per urology, no intervention at this time, continue close monitoring of renal fxn - Urology to comment on renal scan 3. UTI - Final rx shows Providencia Stuartii - Will d/w ID to change to sensitive abx - Continue fortaz (day 3) 4. Right inguinal hernia - D/w surgery no bowel involvement and no surgery at this time 5. Anoxic brain injury s/p brainstem CVAs - Mental status unchanged 6. Respiratory failure secondary to anoxic brain injury - Cont trach collar - Duonebs PRN 7. HTN - Cont lisinopril, metoprolol, amlodipine 8. Multiple pressure ulcers - single remaining Stage III healing pressure ulcer on left buttock - wet to dry dressing 9. DM II - Continue Levemir at 14u sq qhs - ISS BGM ACHS 10. Nutrition: - TF per RD 11. Prophylaxis - SCDs bilaterally - No chemical anticoagulation 2/2 spontaneous gluteal bleed and severe GI bleed - PT CODE STATUS: DNR Visit Type - Emergency Visit Emergency Visit: Yes ED Registration Date: 06/27/15 Care time: The patient presented to the Emergency Department on the above date and was hospitalized for further evaluation of their emergent condition. - New Patient This patient is new to me today: No - Critical Care Critical Care patient: No
[2016-05-28] MEDS: MEROPENEM 1 GM in DEXTROSE 5%-WATER - 250 ML IVPB SCH (21:18)
[2016-05-28] MEDS: VANCOMYCIN 1 GRAM (PRE-DOCKED) 1,000 MG/250 ML BAG IVPB SCH (21:19)
[2016-05-28] MEDS: INSULIN DETEMIR 100 UNITS/ML MDV SQ SCH (21:19)
[2016-05-29] MEDS: MEROPENEM 1 GM in DEXTROSE 5%-WATER - 250 ML IVPB SCH ×2 (02:49→10:40)
[2016-05-29] MEDS: INSULIN SLIDING SCALE (NOVOLOG) 1 VIAL SQ SCH ×2 (06:41→18:35)
--- NOTE | 2016-05-29 09:45 | PN ---
Physical Exam: Subjective: Patient seen and examined. Febrile last night and this AM. Objective: Vital Signs Period Temp Pulse Resp BP Sys/Santiago Pulse Ox Last 24 Hr 99.6 F-100.5 F 77-108 18-20 125-151/72-86 96-96 PE: Neuro: Arousable, dose not follow direction Pulm: Trach collar, clear anteriorly CV: s1 s2 rrr no mrg Abd: peg tube cdi, s nt nd +bs Ext: no edema, warm Laboratory Results - last 24 hr 05/28/16 05/28/16 05/29/16 17:33 21:30 06:28 POC Glucometer 167 123 181 Active Medications Generic Name Dose Route Start Last Admin Trade Name Freq PRN Reason Stop Dose Admin Acetaminophen 650 mg 05/26/16 14:23 05/28/16 10:14 Tylenol Oral Solution - GT 650 mg Q4H PRN Administration FEVER Albuterol/Ipratropium 1 amp 05/02/16 11:51 05/22/16 22:00 Duoneb - NEB 1 amp Q6H PRN Administration SHORTNESS OF BREATH Amlodipine Besylate 10 mg 12/30/15 10:00 05/28/16 10:14 Norvasc - GT 10 mg DAILY KWAKU Administration Guaifenesin 10 ml 12/29/15 10:43 05/16/16 10:16 Robitussin Dm - PO 10 ml Q6H PRN Administration COUGH Meropenem 1 gm/ Dextrose 250 mls @ 500 mls/hr 05/28/16 19:30 05/29/16 02:49 IVPB 500 mls/hr Q8H-IV KWAKU Administration Insulin Aspart 1 vial 01/28/16 16:30 05/29/16 06:41 Novolog Vial Sliding Scale - SQ 2 units BIDI KWAKU Administration Protocol Insulin Detemir 14 units 05/05/16 22:00 05/28/16 21:19 Levemir Vial SQ 14 units HS KWAKU Administration Lactobacillus Acidophilus 1 tab 12/30/15 10:00 05/28/16 10:14 Bacid - PO 1 tab DAILY KWAKU Administration Lisinopril 40 mg 12/30/15 10:00 05/28/16 10:14 Prinivil - GT 40 mg DAILY KWAKU Administration Metoprolol Tartrate 150 mg 12/29/15 22:00 05/28/16 21:18 Lopressor - GT 150 mg BID KWAKU Administration Metoprolol Tartrate 5 mg 12/29/15 10:43 Lopressor Injection - IVPB Q6H PRN HYPERTENSION Multivitamins 5 ml 12/30/15 10:00 05/28/16 10:15 Thera-Plus - GT 5 ml DAILY KWAKU Administration Pantoprazole Sodium 40 mg 12/30/15 10:00 05/28/16 10:14 Protonix Packets For Oral Suspension - GT 40 mg DAILY KWAKU Administration Scopolamine HBr 1 patch 05/20/16 15:45 05/26/16 15:55 Transderm-Scop - TD 1 patch Q72H KWAKU Administration Vancomycin HCl 1,000 mg 05/28/16 22:00 05/28/16 21:19 Vancomycin (Pre-Docked) IVPB 1,000 mg BID KWAKU Administration Microbiology 05/25/16 18:45 Blood Culture - Preliminary Blood - Peripheral Venous NO GROWTH OBTAINED AFTER 72 HOURS, INCUBATION TO CONTINUE FOR 2 DAYS. 05/25/16 18:45 Blood Culture - Preliminary Blood - Peripheral Venous NO GROWTH OBTAINED AFTER 72 HOURS, INCUBATION TO CONTINUE FOR 2 DAYS. 05/25/16 18:45 Urine Culture - Preliminary Urine - Urine Schwartz Providencia Stuartii Group D Strep Or Entero Coccus Assessment: 75 year old male with PMHx of HTN, IDDM, inguinal hernia who presented to the ED with diverticular bleed s/p right hemicolectomy. 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 On 05/19/16 CTAP showed hydronephrosis and right sided inguinal hernia, with plans for no intervention at this time. Plan: 1. UTI - Final ucx shows Providencia Stuartii - Abx changed to vanco/meropenem last night - ID aware 2. Hydronephrosis - Renal scan with diuretic done show mod-linda left hydro - Urology to comment on renal scan 3. Respiratory failure secondary to anoxic brain injury - Cont trach collar - Duonebs PRN 4. HTN - Cont lisinopril, metoprolol, amlodipine 5. Multiple pressure ulcers - single remaining Stage III healing pressure ulcer on left buttock - wet to dry dressing 6. DM II - Continue Levemir at 14u sq qhs - ISS BGM ACHS 7. Nutrition - TF per RD 8. Prophylaxis - SCDs bilaterally - No chemical anticoagulation 2/2 spontaneous gluteal bleed and severe GI bleed - PT CODE STATUS: DNR Visit Type - Emergency Visit Emergency Visit: Yes ED Registration Date: 06/27/15 Care time: The patient presented to the Emergency Department on the above date and was hospitalized for further evaluation of their emergent condition. - New Patient This patient is new to me today: No - Critical Care Critical Care patient: No
[2016-05-29] MEDS: MULTIVITAMINS THERAPEUTIC GT SCH (10:40)
[2016-05-29] MEDS: LACTOBACILLUS ACIDOPHILUS 1 EACH TAB (FP) PO SCH (10:40)
[2016-05-29] MEDS: LISINOPRIL 20 MG TABLET (FP) GT SCH (10:40)
[2016-05-29] MEDS: amLODIPine BESYLATE 10 MG TABLET (FP) GT SCH (10:40)
[2016-05-29] MEDS: METOPROLOL TARTRATE 50 MG TABLET (FP) GT SCH ×2 (10:40→22:20)
[2016-05-29] MEDS: PANTOPRAZOLE SOD 40 MG SUSPENSION PACKET GT SCH (10:40)
[2016-05-29] MEDS: VANCOMYCIN 1 GRAM (PRE-DOCKED) 1,000 MG/250 ML BAG IVPB SCH (11:16)
--- NOTE | 2016-05-29 12:28 | PN ---
Progress Note (short form) - Note Progress Note: OPENS eyes does not follow commands no respiratory distress low grade temp Vital Signs Period Temp Pulse Resp BP Sys/Santiago Pulse Ox Last 24 Hr 99.1 F-100.5 F 77-108 18-20 127-151/72-86 cor-rrr lungs clear abd soft,nt ext no edema CBC, BMP 05/22/16 06:00 05/25/16 05:40 Microbiology 05/25/16 18:45 Urine - Urine Castellano Urine Culture - Final Providencia Stuartii Vr Ec Faecalis 05/25/16 18:45 Blood - Peripheral Venous Blood Culture - Preliminary NO GROWTH OBTAINED AFTER 72 HOURS, INCUBATION TO CONTINUE FOR 2 DAYS. 05/25/16 18:45 Blood - Peripheral Venous Blood Culture - Preliminary NO GROWTH OBTAINED AFTER 72 HOURS, INCUBATION TO CONTINUE FOR 2 DAYS. castellano placed over the weekend for renal scan-now removed cxray ?atelectasis right base a/p fevers- new ?castellano related UTI doubt pneumonia switch to zosyn d/c meropenem/vancomycin contact isolation urology f/u for ?UPJ obstruction
[2016-05-29] MEDS: SCOPOLAMINE HYDROBROMIDE 1 PATCH PATCH.TD72 TD SCH (15:47)
[2016-05-29] MEDS: PIPERACILLIN/TAZOB 3.375 GM/50 ML PRE-DOCKED IVPB SCH ×2 (15:47→18:35)
[2016-05-29] MEDS: INSULIN DETEMIR 100 UNITS/ML MDV SQ SCH (22:19)
[2016-05-30] MEDS: PIPERACILLIN/TAZOB 3.375 GM/50 ML PRE-DOCKED IVPB SCH ×3 (02:22→17:54)
[2016-05-30] MEDS: ALBUTEROL SO4 2.5/IPRATROPIUM 0.5 INH SOL 3 ML VIAL.NEB. NEB PRN (02:55)
[2016-05-30] MEDS: INSULIN SLIDING SCALE (NOVOLOG) 1 VIAL SQ SCH ×2 (06:33→17:53)
[2016-05-30 07:58] LABS: BASOPHIL 0.5 % (0-2.0); EOSINOPHIL 8.9 % (0-4.5); MCH 27.9 pg (25.7-33.7); MCHC 32.6 g/dl (32.0-35.9); MEAN CELL VOLUME 85.8 fl (80-96); MEAN PLT VOLUME 9.8 fl (7.5-11.1); NEUTROPHILS 62.9 % (42.8-82.8); PLATELET COUNT 130 K/MM3 (134-434); RDW 15.3 % (11.9-15.9); WHITE BLOOD COUNT 6.2 K/mm3 (4.0-10.0)
[2016-05-30 08:22] LABS: ANION GAP 8 (8-16); CALCIUM 9.3 mg/dL (8.5-10.1); CO2 31 mmol/L (21-32); CREATININE 0.9 mg/dL (0.7-1.3); GLUCOSE,RANDOM 166 mg/dL (74-106); MAGNESIUM 2.2 mg/dL (1.8-2.4); PHOSPHOROUS 2.6 mg/dL (2.5-4.9); SGOT/AST 24 U/L (15-37); SGPT/ALT 32 U/L (12-78)
[2016-05-30 08:25] LABS: ALK PHOS 118 U/L (45-117); BILIRUBIN,TOTAL 0.3 mg/dL (0.2-1.0); TOT PROT 7.2 g/dl (6.4-8.2)
[2016-05-30] MEDS: LISINOPRIL 20 MG TABLET (FP) GT SCH (10:47)
[2016-05-30] MEDS: PANTOPRAZOLE SOD 40 MG SUSPENSION PACKET GT SCH (10:47)
[2016-05-30] MEDS: amLODIPine BESYLATE 10 MG TABLET (FP) GT SCH (10:48)
[2016-05-30] MEDS: METOPROLOL TARTRATE 50 MG TABLET (FP) GT SCH ×2 (10:48→22:40)
[2016-05-30] MEDS: LACTOBACILLUS ACIDOPHILUS 1 EACH TAB (FP) PO SCH (10:48)
[2016-05-30] MEDS: MULTIVITAMINS THERAPEUTIC GT SCH (10:49)
--- NOTE | 2016-05-30 13:53 | PN ---
Progress Note (short form) - Note Progress Note: OPENS eyes does not follow commands no respiratory distress no fevers Vital Signs Period Temp Pulse Resp BP Sys/Santiago Pulse Ox Last 24 Hr 98.5 F-99.6 F 65-83 18-24 129-136/73-78 97-98 cor-rrr lungs cler abd soft,nt ext no edema CBC, BMP 05/30/16 06:50 05/30/16 06:50 Microbiology 05/25/16 18:45 Urine - Urine Castellano Urine Culture - Final Providencia Stuartii Vr Ec Faecalis 05/25/16 18:45 Blood - Peripheral Venous Blood Culture - Preliminary NO GROWTH OBTAINED AFTER 72 HOURS, INCUBATION TO CONTINUE FOR 2 DAYS. 05/25/16 18:45 Blood - Peripheral Venous Blood Culture - Preliminary NO GROWTH OBTAINED AFTER 72 HOURS, INCUBATION TO CONTINUE FOR 2 DAYS. castellano placed over the weekend for renal scan-now removed cxray ?atelectasis right base a/p fevers resolved ?castellano related UTI doubt pneumonia continue zosyn day #2 contact isolation urology f/u for ?UPJ obstruction
--- NOTE | 2016-05-30 15:05 | PN ---
Physical Exam: SUBJECTIVE: Patient seen and examined. No fevers, no acute issues reported. OBJECTIVE: Vital Signs Period Temp Pulse Resp BP Sys/Santiago Pulse Ox Last 24 Hr 98.5 F-99.6 F 65-83 18-24 129-136/73-78 97-98 PE: Neuro: Arousable, dose not follow direction Pulm: Trach collar, clear anteriorly CV: s1 s2 rrr no mrg Abd: peg tube cdi, s nt nd +bs Ext: no edema, warm CBCD WBC 6.2 K/mm3 (4.0-10.0) 05/30/16 06:50 RBC 3.62 M/mm3 (4.00-5.60) L 05/30/16 06:50 Hgb 10.1 GM/dL (11.7-16.9) L D 05/30/16 06:50 Hct 31.0 % (35.4-49) L D 05/30/16 06:50 MCV 85.8 fl (80-96) 05/30/16 06:50 MCHC 32.6 g/dl (32.0-35.9) 05/30/16 06:50 RDW 15.3 % (11.9-15.9) 05/30/16 06:50 Plt Count 130 K/MM3 (134-434) L D 05/30/16 06:50 MPV 9.8 fl (7.5-11.1) 05/30/16 06:50 CMP Sodium 140 mmol/L (136-145) 05/30/16 06:50 Potassium 3.6 mmol/L (3.5-5.1) 05/30/16 06:50 Chloride 101 mmol/L (98-107) 05/30/16 06:50 Carbon Dioxide 31 mmol/L (21-32) 05/30/16 06:50 Anion Gap 8 (8-16) 05/30/16 06:50 BUN 20 mg/dL (7-18) H 05/30/16 06:50 Creatinine 0.9 mg/dL (0.7-1.3) 05/30/16 06:50 Creat Clearance w eGFR > 60 (>60) 05/30/16 06:50 Calcium 9.3 mg/dL (8.5-10.1) 05/30/16 06:50 Total Bilirubin 0.3 mg/dL (0.2-1.0) D 05/30/16 06:50 AST 24 U/L (15-37) D 05/30/16 06:50 ALT 32 U/L (12-78) D 05/30/16 06:50 Alkaline Phosphatase 118 U/L (45-117) H D 05/30/16 06:50 Total Protein 7.2 g/dl (6.4-8.2) 05/30/16 06:50 Albumin 3.0 g/dl (3.4-5.0) L 05/30/16 06:50 05/30/16 06:50 Phosphorus 2.6 D Magnesium 2.2 Active Medications Generic Name Dose Route Start Last Admin Trade Name Freq PRN Reason Stop Dose Admin Acetaminophen 650 mg 05/26/16 14:23 05/28/16 10:14 Tylenol Oral Solution - GT 650 mg Q4H PRN Administration FEVER Albuterol/Ipratropium 1 amp 05/02/16 11:51 05/30/16 02:55 Duoneb - NEB 1 amp Q6H PRN Administration SHORTNESS OF BREATH Amlodipine Besylate 10 mg 12/30/15 10:00 05/30/16 10:48 Norvasc - GT 10 mg DAILY KWAKU Administration Guaifenesin 10 ml 12/29/15 10:43 05/16/16 10:16 Robitussin Dm - PO 10 ml Q6H PRN Administration COUGH Insulin Aspart 1 vial 01/28/16 16:30 05/30/16 06:33 Novolog Vial Sliding Scale - SQ Not Given BIDI [facility] Protocol Insulin Detemir 14 units 05/05/16 22:00 05/29/16 22:19 Levemir Vial SQ 14 units HS KWAKU Administration Lactobacillus Acidophilus 1 tab 12/30/15 10:00 05/30/16 10:48 Bacid - PO 1 tab DAILY KWAKU Administration Lisinopril 40 mg 12/30/15 10:00 05/30/16 10:47 Prinivil - GT 40 mg DAILY KWAKU Administration Metoprolol Tartrate 150 mg 12/29/15 22:00 05/30/16 10:48 Lopressor - GT 150 mg BID KWAKU Administration Metoprolol Tartrate 5 mg 12/29/15 10:43 Lopressor Injection - IVPB Q6H PRN HYPERTENSION Multivitamins 5 ml 12/30/15 10:00 05/30/16 10:49 Thera-Plus - GT 5 ml DAILY KWAKU Administration Pantoprazole Sodium 40 mg 12/30/15 10:00 05/30/16 10:47 Protonix Packets For Oral Suspension - GT 40 mg DAILY KWAKU Administration Piperacillin Sod/Tazobactam Sod 3.375 gm 05/29/16 14:30 05/30/16 10:49 Zosyn 3.375gm Ivpb (Pre-Docked) IVPB 3.375 gm Q8H-IV KWAKU Administration Scopolamine HBr 1 patch 05/20/16 15:45 05/29/16 15:47 Transderm-Scop - TD 1 patch Q72H KWAKU Administration Assessment: 75 year old male with PMHx of HTN, IDDM, inguinal hernia who presented to the ED with diverticular bleed s/p right hemicolectomy. 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 On 05/19/16 CTAP showed hydronephrosis and right sided inguinal hernia, with plans for no intervention at this time. Plan: 1. UTI d/t Providencia Stuartii - ? Schwartz related UTI - Zosyn (day 2) 2. Hydronephrosis, - D/w Urology regarding renal scan, he believes this to be a chronic obstruction , the pt could benefit an nephrostomy tube in IR however, may be risky given sedentary lifestyle and risk for increased infection. - Will place call to daughter to discuss options 3. Respiratory failure secondary to anoxic brain injury - Cont trach collar - Duonebs PRN 4. HTN - Cont lisinopril, metoprolol, amlodipine 5. Multiple pressure ulcers - single remaining Stage III healing pressure ulcer on left buttock - wet to dry dressing 6. DM II - Continue Levemir at 14u sq qhs - ISS BGM ACHS 7. Nutrition - TF per RD 8. Prophylaxis - SCDs bilaterally - No chemical anticoagulation 2/2 spontaneous gluteal bleed and severe GI bleed - PT Visit Type - Emergency Visit Emergency Visit: Yes ED Registration Date: 06/27/15 Care time: The patient presented to the Emergency Department on the above date and was hospitalized for further evaluation of their emergent condition. - New Patient This patient is new to me today: No - Critical Care Critical Care patient: No Metoprolol Tartrate 150 mg 12/29/15 22:00 05/30/16 10:48 Lopressor - GT 150 mg BID KWAKU Administration Metoprolol Tartrate 5 mg 12/29/15 10:43 Lopressor Injection - IVPB Q6H PRN HYPERTENSION Multivitamins 5 ml 12/30/15 10:00 05/30/16 10:49 Thera-Plus - GT 5 ml DAILY KWAKU Administration Pantoprazole Sodium 40 mg 12/30/15 10:00 05/30/16 10:47 Protonix Packets For Oral Suspension - GT 40 mg DAILY KWAKU Administration Piperacillin Sod/Tazobactam Sod 3.375 gm 05/29/16 14:30 05/30/16 10:49 Zosyn 3.375gm Ivpb (Pre-Docked) IVPB 3.375 gm Q8H-IV KWAKU Administration Scopolamine HBr 1 patch 05/20/16 15:45 05/29/16 15:47 Transderm-Scop - TD 1 patch Q72H KWAKU Administration Assessment: 75 year old male with PMHx of HTN, IDDM, inguinal hernia who presented to the ED with diverticular bleed s/p right hemicolectomy. 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 On 05/19/16 CTAP showed hydronephrosis and right sided inguinal hernia, with plans for no intervention at this time. Plan: 1. UTI d/t Providencia Stuartii - ? Schwartz related UTI - Zosyn (day 2) 2. Hydronephrosis, - D/w Urology regarding renal scan, he believes this to be a chronic obstruction , the pt could benefit an nephrostomy tube in IR however, may be risky given sedentary lifestyle and risk for increased infection. - Will place call to daughter to discuss options 3. Respiratory failure secondary to anoxic brain injury - Cont trach collar - Duonebs PRN 4. HTN - Cont lisinopril, metoprolol, amlodipine 5. Multiple pressure ulcers - single remaining Stage III healing pressure ulcer on left buttock - wet to dry dressing 6. DM II - Continue Levemir at 14u sq qhs - ISS BGM ACHS 7. Nutrition - TF per RD 8. Prophylaxis - SCDs bilaterally - No chemical anticoagulation 2/2 spontaneous gluteal bleed and severe GI bleed - PT
[2016-05-30] MEDS: INSULIN DETEMIR 100 UNITS/ML MDV SQ SCH (22:32)
[2016-05-31] MEDS: PIPERACILLIN/TAZOB 3.375 GM/50 ML PRE-DOCKED IVPB SCH ×3 (02:08→17:47)
[2016-05-31] MEDS: INSULIN SLIDING SCALE (NOVOLOG) 1 VIAL SQ SCH ×2 (06:30→18:00)
[2016-05-31] MEDS: METOPROLOL TARTRATE 50 MG TABLET (FP) GT SCH ×2 (11:26→22:24)
[2016-05-31] MEDS: amLODIPine BESYLATE 10 MG TABLET (FP) GT SCH (11:26)
[2016-05-31] MEDS: PANTOPRAZOLE SOD 40 MG SUSPENSION PACKET GT SCH (11:27)
[2016-05-31] MEDS: LISINOPRIL 20 MG TABLET (FP) GT SCH (11:27)
[2016-05-31] MEDS: LACTOBACILLUS ACIDOPHILUS 1 EACH TAB (FP) PO SCH (11:27)
[2016-05-31] MEDS: MULTIVITAMINS THERAPEUTIC GT SCH (11:28)
--- NOTE | 2016-05-31 13:13 | PN ---
Progress Note (short form) - Note Progress Note: OPENS eyes no fevers no diarrhea today Vital Signs Period Temp Pulse Resp BP Sys/Santiago Pulse Ox Last 24 Hr 97.5 F-99.6 F 69-92 18-20 115-147/73-86 cor-rrr lungs scattered rhonchi abd- soft,nt ext no edema CBC, BMP 05/30/16 06:50 05/30/16 06:50 Microbiology 05/25/16 18:45 Urine - Urine Castellano Urine Culture - Final Providencia Stuartii Vr Ec Faecalis 05/25/16 18:45 Blood - Peripheral Venous Blood Culture - Preliminary NO GROWTH OBTAINED AFTER 72 HOURS, INCUBATION TO CONTINUE FOR 2 DAYS. 05/25/16 18:45 Blood - Peripheral Venous Blood Culture - Preliminary NO GROWTH OBTAINED AFTER 72 HOURS, INCUBATION TO CONTINUE FOR 2 DAYS. cxray ?atelectasis right base a/p fevers resolved ?castellano related UTI doubt pneumonia continue zosyn day #3-plan total 7 days for UTI contact isolation urology f/u for ?UPJ obstruction
--- NOTE | 2016-05-31 14:08 | PN ---
Physical Exam: Subjective: Patient seen and examined. No changes, afebrile. - Episodes of diarrhea -CD negative Objective: Vital Signs Period Temp Pulse Resp BP Sys/Santiago Pulse Ox Last 24 Hr 97.5 F-99.6 F 69-92 18-20 115-147/73-86 95 PE: Neuro: Arousable, dose not follow direction, moving head Pulm: Trach collar, clear anteriorly CV: s1 s2 rrr no mrg Abd: peg tube cdi, s nt nd +bs Ext: no edema, warm Laboratory Results - last 24 hr 05/30/16 05/30/16 05/31/16 17:46 21:39 05:52 POC Glucometer 171 148 144 Active Medications Generic Name Dose Route Start Last Admin Trade Name Freq PRN Reason Stop Dose Admin Acetaminophen 650 mg 05/26/16 14:23 05/28/16 10:14 Tylenol Oral Solution - GT 650 mg Q4H PRN Administration FEVER Albuterol/Ipratropium 1 amp 05/02/16 11:51 05/30/16 02:55 Duoneb - NEB 1 amp Q6H PRN Administration SHORTNESS OF BREATH Amlodipine Besylate 10 mg 12/30/15 10:00 05/31/16 11:26 Norvasc - GT 10 mg DAILY KWAKU Administration Guaifenesin 10 ml 12/29/15 10:43 05/16/16 10:16 Robitussin Dm - PO 10 ml Q6H PRN Administration COUGH Insulin Aspart 1 vial 01/28/16 16:30 05/31/16 06:30 Novolog Vial Sliding Scale - SQ Not Given BIDI [facility] Protocol Insulin Detemir 14 units 05/05/16 22:00 05/30/16 22:32 Levemir Vial SQ 14 units HS KWAKU Administration Lactobacillus Acidophilus 1 tab 12/30/15 10:00 05/31/16 11:27 Bacid - PO 1 tab DAILY KWAKU Administration Lisinopril 40 mg 12/30/15 10:00 05/31/16 11:27 Prinivil - GT 40 mg DAILY KWAKU Administration Metoprolol Tartrate 150 mg 12/29/15 22:00 05/31/16 11:26 Lopressor - GT 150 mg BID KWAKU Administration Metoprolol Tartrate 5 mg 12/29/15 10:43 Lopressor Injection - IVPB Q6H PRN HYPERTENSION Multivitamins 5 ml 12/30/15 10:00 05/31/16 11:28 Thera-Plus - GT 5 ml DAILY KWAKU Administration Pantoprazole Sodium 40 mg 12/30/15 10:00 05/31/16 11:27 Protonix Packets For Oral Suspension - GT 40 mg DAILY KWAKU Administration Piperacillin Sod/Tazobactam Sod 3.375 gm 05/29/16 14:30 05/31/16 11:28 Zosyn 3.375gm Ivpb (Pre-Docked) IVPB 3.375 gm Q8H-IV KWAKU Administration Scopolamine HBr 1 patch 05/20/16 15:45 05/29/16 15:47 Transderm-Scop - TD 1 patch Q72H KWAKU Administration Assessment: 75 year old male with PMHx of HTN, IDDM, inguinal hernia who presented to the ED with diverticular bleed s/p right hemicolectomy. 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 On 05/19/16 CTAP showed hydronephrosis and right sided inguinal hernia, with plans for no intervention at this time. Plan: 1. UTI d/t Providencia Stuartii - ? Schwartz related UTI - Zosyn (day 4) 2. Hydronephrosis, - D/w Urology regarding renal scan, he believes this to be a chronic obstruction , the pt could benefit an nephrostomy tube in IR however, may be risky given sedentary lifestyle and risk for increased infection. - To discuss options with daughter 3. Respiratory failure secondary to anoxic brain injury - Cont trach collar - Duonebs PRN 4. HTN - Cont lisinopril, metoprolol, amlodipine 5. Multiple pressure ulcers - single remaining Stage III healing pressure ulcer on left buttock - wet to dry dressing 6. DM II - Continue Levemir at 14u sq qhs - ISS BGM ACHS 7. Nutrition - TF per RD 8. Prophylaxis - SCDs bilaterally - No chemical anticoagulation 2/2 spontaneous gluteal bleed and severe GI bleed - PT Visit Type - Emergency Visit Emergency Visit: Yes ED Registration Date: 06/27/15 Care time: The patient presented to the Emergency Department on the above date and was hospitalized for further evaluation of their emergent condition. - New Patient This patient is new to me today: No - Critical Care Critical Care patient: No - SCDs bilaterally - No chemical anticoagulation 2/2 spontaneous gluteal bleed and severe GI bleed - PT
[2016-05-31] MEDS: ALBUTEROL SO4 2.5/IPRATROPIUM 0.5 INH SOL 3 ML VIAL.NEB. NEB PRN (18:53)
[2016-05-31] MEDS: INSULIN DETEMIR 100 UNITS/ML MDV SQ SCH (22:23)
[2016-06-01] MEDS: PIPERACILLIN/TAZOB 3.375 GM/50 ML PRE-DOCKED IVPB SCH ×3 (01:47→17:59)
[2016-06-01] MEDS: ACETAMINOPHEN 650 MG/20.3 ML ORAL SOLUTION (CUPS) GT PRN (01:47)
[2016-06-01] MEDS: INSULIN SLIDING SCALE (NOVOLOG) 1 VIAL SQ SCH ×2 (06:07→18:05)
[2016-06-01] MEDS: METOPROLOL TARTRATE 50 MG TABLET (FP) GT SCH ×2 (10:48→22:20)
[2016-06-01] MEDS: LACTOBACILLUS ACIDOPHILUS 1 EACH TAB (FP) PO SCH (10:50)
[2016-06-01] MEDS: PANTOPRAZOLE SOD 40 MG SUSPENSION PACKET GT SCH (10:50)
[2016-06-01] MEDS: amLODIPine BESYLATE 10 MG TABLET (FP) GT SCH (10:50)
[2016-06-01] MEDS: MULTIVITAMINS THERAPEUTIC GT SCH (10:50)
[2016-06-01] MEDS: LISINOPRIL 20 MG TABLET (FP) GT SCH (10:52)
--- NOTE | 2016-06-01 13:34 | PN ---
Physical Exam: Subjective: Patient seen and examined. no changes. Calm Objective: Vital Signs Period Temp Pulse Resp BP Sys/Santiago Pulse Ox Last 24 Hr 98 F-100.5 F 73-84 18-22 124-149/63-82 97-97 PE: Neuro: awake, no distress Pulm: Trach collar, clear anteriorly CV: s1 s2 rrr no mrg Abd: peg tube cdi, s nt nd +bs Ext: no edema, warm Laboratory Results - last 24 hr 05/31/16 06/01/16 17:52 06:02 POC Glucometer 165 151 Active Medications Generic Name Dose Route Start Last Admin Trade Name Freq PRN Reason Stop Dose Admin Acetaminophen 650 mg 05/26/16 14:23 06/01/16 01:47 Tylenol Oral Solution - GT 650 mg Q4H PRN Administration FEVER Albuterol/Ipratropium 1 amp 05/02/16 11:51 05/31/16 18:53 Duoneb - NEB 1 amp Q6H PRN Administration SHORTNESS OF BREATH Amlodipine Besylate 10 mg 12/30/15 10:00 06/01/16 10:50 Norvasc - GT 10 mg DAILY KWAKU Administration Guaifenesin 10 ml 12/29/15 10:43 05/16/16 10:16 Robitussin Dm - PO 10 ml Q6H PRN Administration COUGH Insulin Aspart 1 vial 01/28/16 16:30 06/01/16 06:07 Novolog Vial Sliding Scale - SQ 2 units BIDI KWAKU Administration Protocol Insulin Detemir 14 units 05/05/16 22:00 05/31/16 22:23 Levemir Vial SQ 14 units HS KWAKU Administration Lactobacillus Acidophilus 1 tab 12/30/15 10:00 06/01/16 10:50 Bacid - PO 1 tab DAILY KWAKU Administration Lisinopril 40 mg 12/30/15 10:00 06/01/16 10:52 Prinivil - GT 40 mg DAILY KWAKU Administration Metoprolol Tartrate 150 mg 12/29/15 22:00 06/01/16 10:48 Lopressor - GT 150 mg BID KWAKU Administration Metoprolol Tartrate 5 mg 12/29/15 10:43 Lopressor Injection - IVPB Q6H PRN HYPERTENSION Multivitamins 5 ml 12/30/15 10:00 06/01/16 10:50 Thera-Plus - GT 5 ml DAILY KWAKU Administration Pantoprazole Sodium 40 mg 12/30/15 10:00 06/01/16 10:50 Protonix Packets For Oral Suspension - GT 40 mg DAILY KWAKU Administration Piperacillin Sod/Tazobactam Sod 3.375 gm 05/29/16 14:30 06/01/16 10:52 Zosyn 3.375gm Ivpb (Pre-Docked) IVPB 3.375 gm Q8H-IV KWAKU Administration Scopolamine HBr 1 patch 05/20/16 15:45 05/29/16 15:47 Transderm-Scop - TD 1 patch Q72H KWAKU Administration Assessment: 75 year old male with PMHx of HTN, IDDM, inguinal hernia who presented to the ED with diverticular bleed s/p right hemicolectomy. 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 On 05/19/16 CTAP showed hydronephrosis and right sided inguinal hernia, with plans for no intervention at this time. Plan: 1. UTI d/t Providencia Stuartii - ? Schwartz related UTI - Zosyn (day 5) 2. Hydronephrosis, - D/w Urology regarding renal scan, he believes this to be a chronic obstruction , the pt could benefit an nephrostomy tube in IR however, may be risky given sedentary lifestyle and risk for increased infection. - To discuss options with daughter 3. Respiratory failure secondary to anoxic brain injury - Cont trach collar - Duonebs PRN 4. HTN - Cont lisinopril, metoprolol, amlodipine 5. Multiple pressure ulcers - single remaining Stage III healing pressure ulcer on left buttock - wet to dry dressing 6. DM II - Continue Levemir at 14u sq qhs - ISS BGM ACHS 7. Nutrition - TF per RD 8. Prophylaxis - SCDs bilaterally - No chemical anticoagulation 2/2 spontaneous gluteal bleed and severe GI bleed - PT Visit Type - Emergency Visit Emergency Visit: Yes ED Registration Date: 06/27/15 Care time: The patient presented to the Emergency Department on the above date and was hospitalized for further evaluation of their emergent condition. - New Patient This patient is new to me today: No - Critical Care Critical Care patient: No
--- NOTE | 2016-06-01 15:03 | PN ---
Progress Note (short form) - Note Progress Note: OPENS eyes no fevers Vital Signs Period Temp Pulse Resp BP Sys/Santiago Pulse Ox Last 24 Hr 98 F-100.5 F 73-84 18-22 135-149/63-82 97-97 cor-rrr lungs clear, decreased bs at bases abd-+bs, soft,nt ext no edema CBC, BMP 05/30/16 06:50 05/30/16 06:50 Microbiology 05/30/16 21:30 Clostridium difficile Antigen (MACHO) - Final Stool Clostridium difficile Toxin Assay - Final cxray ?atelectasis right base a/p fevers resolved ?castellano related UTI doubt pneumonia continue zosyn day #4-plan total 7 days for UTI contact isolation urology f/u for ?UPJ obstruction please call back if needed
[2016-06-01] MEDS: SCOPOLAMINE HYDROBROMIDE 1 PATCH PATCH.TD72 TD SCH (15:20)
[2016-06-01] MEDS: ALBUTEROL SO4 2.5/IPRATROPIUM 0.5 INH SOL 3 ML VIAL.NEB. NEB PRN (15:27)
[2016-06-01] MEDS: INSULIN DETEMIR 100 UNITS/ML MDV SQ SCH (22:20)
[2016-06-02] MEDS: PIPERACILLIN/TAZOB 3.375 GM/50 ML PRE-DOCKED IVPB SCH ×3 (01:51→17:29)
[2016-06-02] MEDS: INSULIN SLIDING SCALE (NOVOLOG) 1 VIAL SQ SCH ×2 (06:29→17:30)
[2016-06-02] MEDS: ALBUTEROL SO4 2.5/IPRATROPIUM 0.5 INH SOL 3 ML VIAL.NEB. NEB PRN (06:30)
[2016-06-02] MEDS: PANTOPRAZOLE SOD 40 MG SUSPENSION PACKET GT SCH (09:57)
[2016-06-02] MEDS: amLODIPine BESYLATE 10 MG TABLET (FP) GT SCH (09:57)
[2016-06-02] MEDS: METOPROLOL TARTRATE 50 MG TABLET (FP) GT SCH ×2 (09:57→21:40)
[2016-06-02] MEDS: LISINOPRIL 20 MG TABLET (FP) GT SCH (09:57)
[2016-06-02] MEDS: LACTOBACILLUS ACIDOPHILUS 1 EACH TAB (FP) PO SCH (09:57)
[2016-06-02] MEDS: MULTIVITAMINS THERAPEUTIC GT SCH (09:57)
--- NOTE | 2016-06-02 14:10 | PN ---
Physical Exam: SUBJECTIVE: Patient seen and examined at bedside. OBJECTIVE: Vital Signs Period Temp Pulse Resp BP Sys/Santiago Pulse Ox Last 24 Hr 98.4 F-99.8 F 68-91 20-22 133-157/73-88 100 GENERAL/NEURO: Eyes open. Non-verbal. Does not follow commands. Non-purposeful movement. HEAD: Normal with no signs of trauma. Trach. EYES: PERRL, extraocular movements intact, sclera anicteric, conjunctiva clear. No ptosis. ENT: Ears normal, nares patent, oropharynx clear without exudates, moist mucous membranes. LUNGS: CTA; on trach collar; no wheezing, no rhonchi, no accessory muscle use. HEART: Regular rate and rhythm, S1, S2 without murmur, rub or gallop. ABDOMEN: Soft, nontender, nondistended, normoactive bowel sounds, no guarding, no rebound, no hepatosplenomegaly, no masses. PEG tube. EXTREMITIES: 2+ pulses, warm, well-perfused, no edema. SKIN: Healing Stage III pressure ulcer upper left buttock, not visualized today. CBCD WBC 6.2 K/mm3 (4.0-10.0) 05/30/16 06:50 RBC 3.62 M/mm3 (4.00-5.60) L 05/30/16 06:50 Hgb 10.1 GM/dL (11.7-16.9) L D 05/30/16 06:50 Hct 31.0 % (35.4-49) L D 05/30/16 06:50 MCV 85.8 fl (80-96) 05/30/16 06:50 MCHC 32.6 g/dl (32.0-35.9) 05/30/16 06:50 RDW 15.3 % (11.9-15.9) 05/30/16 06:50 Plt Count 130 K/MM3 (134-434) L D 05/30/16 06:50 MPV 9.8 fl (7.5-11.1) 05/30/16 06:50 CMP Sodium 140 mmol/L (136-145) 05/30/16 06:50 Potassium 3.6 mmol/L (3.5-5.1) 05/30/16 06:50 Chloride 101 mmol/L (98-107) 05/30/16 06:50 Carbon Dioxide 31 mmol/L (21-32) 05/30/16 06:50 Anion Gap 8 (8-16) 05/30/16 06:50 BUN 20 mg/dL (7-18) H 05/30/16 06:50 Creatinine 0.9 mg/dL (0.7-1.3) 05/30/16 06:50 Creat Clearance w eGFR > 60 (>60) 05/30/16 06:50 Calcium 9.3 mg/dL (8.5-10.1) 05/30/16 06:50 Total Bilirubin 0.3 mg/dL (0.2-1.0) D 05/30/16 06:50 AST 24 U/L (15-37) D 05/30/16 06:50 ALT 32 U/L (12-78) D 05/30/16 06:50 Alkaline Phosphatase 118 U/L (45-117) H D 05/30/16 06:50 Total Protein 7.2 g/dl (6.4-8.2) 05/30/16 06:50 Albumin 3.0 g/dl (3.4-5.0) L 05/30/16 06:50 Active Medications Generic Name Dose Route Start Last Admin Trade Name Freq PRN Reason Stop Dose Admin Acetaminophen 650 mg 05/26/16 14:23 06/01/16 01:47 Tylenol Oral Solution - GT 650 mg Q4H PRN Administration FEVER Albuterol/Ipratropium 1 amp 05/02/16 11:51 06/02/16 06:30 Duoneb - NEB 1 amp Q6H PRN Administration SHORTNESS OF BREATH Amlodipine Besylate 10 mg 12/30/15 10:00 06/02/16 09:57 Norvasc - GT 10 mg DAILY KWAKU Administration Guaifenesin 10 ml 12/29/15 10:43 05/16/16 10:16 Robitussin Dm - PO 10 ml Q6H PRN Administration COUGH Insulin Aspart 1 vial 01/28/16 16:30 06/02/16 06:29 Novolog Vial Sliding Scale - SQ 2 units BIDI KWAKU Administration Protocol Insulin Detemir 14 units 05/05/16 22:00 06/01/16 22:20 Levemir Vial SQ 14 units HS KWAKU Administration Lactobacillus Acidophilus 1 tab 12/30/15 10:00 06/02/16 09:57 Bacid - PO 1 tab DAILY KWAKU Administration Lisinopril 40 mg 12/30/15 10:00 06/02/16 09:57 Prinivil - GT 40 mg DAILY KWAKU Administration Metoprolol Tartrate 150 mg 12/29/15 22:00 06/02/16 09:57 Lopressor - GT 150 mg BID KWAKU Administration Metoprolol Tartrate 5 mg 12/29/15 10:43 Lopressor Injection - IVPB Q6H PRN HYPERTENSION Multivitamins 5 ml 12/30/15 10:00 06/02/16 09:57 Thera-Plus - GT 5 ml DAILY KWAKU Administration Pantoprazole Sodium 40 mg 12/30/15 10:00 06/02/16 09:57 Protonix Packets For Oral Suspension - GT 40 mg DAILY KWAKU Administration Piperacillin Sod/Tazobactam Sod 3.375 gm 05/29/16 14:30 06/02/16 09:58 Zosyn 3.375gm Ivpb (Pre-Docked) IVPB 3.375 gm Q8H-IV KWAKU Administration Scopolamine HBr 1 patch 05/20/16 15:45 06/01/16 15:20 Transderm-Scop - TD 1 patch Q72H KWAKU Administration ASSESSMENT/PLAN: 75 year old male with PMHx of HTN, IDDM, inguinal hernia who presented to the ED with diverticular bleed s/p right hemicolectomy. 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 Presently being treated for UTI. 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 Jansen: "given pt's guarded prognosis and current DNR status, would recommend continued observation until absolute indications for definitive surgical intervention arise (including, but not limited to, elevated serum creatinine, recurrent UTI or urosepsis, flank pain and/or gross hematuria) " Right inguinal hernia --incidental finding on CT --no surgical intervention at this time Anoxic brain injury s/p brainstem CVAs - Mental status unchanged Respiratory failure secondary to anoxic brain injury - Cont trach collar - Duonebs PRN HTN - BP well-controlled - Continue lisinopril, metoprolol, amlodipine Multiple pressure ulcers - single remaining Stage III healing pressure ulcer on left buttock - wet to dry dressing IDDM - Continue Levemir at 14u sq qhs - ISS BGM ACHS F/E/N - Tube feeds restarted, goal rate reduced to decrease chance of vomiting Prophylaxis - SCDs bilaterally - No chemical anticoagulation 2/2 spontaneous gluteal bleed and severe GI bleed - PT CODE STATUS: DNR Visit Type - Emergency Visit Emergency Visit: Yes ED Registration Date: 06/27/15 Care time: The patient presented to the Emergency Department on the above date and was hospitalized for further evaluation of their emergent condition. - New Patient This patient is new to me today: No - Critical Care Critical Care patient: No
[2016-06-02] MEDS: INSULIN DETEMIR 100 UNITS/ML MDV SQ SCH (21:39)
[2016-06-03] MEDS: PIPERACILLIN/TAZOB 3.375 GM/50 ML PRE-DOCKED IVPB SCH ×3 (02:39→17:36)
[2016-06-03] MEDS: INSULIN SLIDING SCALE (NOVOLOG) 1 VIAL SQ SCH ×2 (06:31→17:40)
[2016-06-03] MEDS: ALBUTEROL SO4 2.5/IPRATROPIUM 0.5 INH SOL 3 ML VIAL.NEB. NEB PRN (11:06)
[2016-06-03] MEDS: PANTOPRAZOLE SOD 40 MG SUSPENSION PACKET GT SCH (12:02)
[2016-06-03] MEDS: LACTOBACILLUS ACIDOPHILUS 1 EACH TAB (FP) PO SCH (12:03)
[2016-06-03] MEDS: MULTIVITAMINS THERAPEUTIC GT SCH (12:03)
[2016-06-03] MEDS: LISINOPRIL 20 MG TABLET (FP) GT SCH (12:03)
[2016-06-03] MEDS: amLODIPine BESYLATE 10 MG TABLET (FP) GT SCH (12:04)
[2016-06-03] MEDS: METOPROLOL TARTRATE 50 MG TABLET (FP) GT SCH ×2 (12:04→21:53)
--- NOTE | 2016-06-03 16:31 | PN ---
Physical Exam: SUBJECTIVE: Patient seen and examined OBJECTIVE: Vital Signs - 24 hr 06/02/16 06/03/16 06/03/16 22:00 07:46 10:00 Temperature 97.7 F 97.8 F 98.4 F Pulse Rate 86 80 80 Respiratory 20 20 20 Rate Blood Pressure 136/89 140/87 137/91 O2 Sat by Pulse Oximetry (%) 06/03/16 06/03/16 11:05 14:00 Temperature 99.1 F Pulse Rate 80 67 Respiratory 18 Rate Blood Pressure 143/91 O2 Sat by Pulse 95 Oximetry (%) GENERAL: The patient is awake, alert, and in no acute distress. No verbal output , eyes open spontaneously HEAD: Normal with no signs of trauma. EYES: PERRL, extraocular movements intact, sclera anicteric, conjunctiva clear. No ptosis. ENT: Ears normal, nares patent, oropharynx clear without exudates, moist mucous membranes. NECK: Trachea midline, full range of motion, supple. LUNGS: Breath sounds equal, clear to auscultation bilaterally, no wheezes, no crackles, no accessory muscle use. diminished bilat bases HEART: Regular rate and rhythm, S1, S2 without murmur, rub or gallop. ABDOMEN: Soft, nontender, nondistended, normoactive bowel sounds, no guarding, no rebound, no hepatosplenomegaly, no masses. EXTREMITIES: 2+ pulses, warm, well-perfused, no edema. NEUROLOGICAL: Cranial nerves II through XII grossly intact. Gait not observed. Pt with reflexive movements, squeezes fingers when placed in hand but unable to follow commands SKIN: + pressure ulcer left upper buttock, not observed today on exam. Laboratory Results - last 24 hr 06/02/16 06/03/16 17:16 06:30 POC Glucometer 141 159 Active Medications Generic Name Dose Route Start Last Admin Trade Name Freq PRN Reason Stop Dose Admin Acetaminophen 650 mg 05/26/16 14:23 06/01/16 01:47 Tylenol Oral Solution - GT 650 mg Q4H PRN Administration FEVER Albuterol/Ipratropium 1 amp 05/02/16 11:51 06/03/16 11:06 Duoneb - NEB 1 amp Q6H PRN Administration SHORTNESS OF BREATH Amlodipine Besylate 10 mg 12/30/15 10:00 06/03/16 12:04 Norvasc - GT 10 mg DAILY KWAKU Administration Guaifenesin 10 ml 12/29/15 10:43 05/16/16 10:16 Robitussin Dm - PO 10 ml Q6H PRN Administration COUGH Insulin Aspart 1 vial 01/28/16 16:30 06/03/16 06:31 Novolog Vial Sliding Scale - SQ 2 units BIDI KWAKU Administration Protocol Insulin Detemir 14 units 05/05/16 22:00 06/02/16 21:39 Levemir Vial SQ 14 units HS KWAKU Administration Lactobacillus Acidophilus 1 tab 12/30/15 10:00 06/03/16 12:03 Bacid - PO 1 tab DAILY KWAKU Administration Lisinopril 40 mg 12/30/15 10:00 06/03/16 12:03 Prinivil - GT 40 mg DAILY KWAKU Administration Metoprolol Tartrate 150 mg 12/29/15 22:00 06/03/16 12:04 Lopressor - GT 150 mg BID KWAKU Administration Metoprolol Tartrate 5 mg 12/29/15 10:43 Lopressor Injection - IVPB Q6H PRN HYPERTENSION Multivitamins 5 ml 12/30/15 10:00 06/03/16 12:03 Thera-Plus - GT 5 ml DAILY KWAKU Administration Pantoprazole Sodium 40 mg 12/30/15 10:00 06/03/16 12:02 Protonix Packets For Oral Suspension - GT 40 mg DAILY KWAKU Administration Piperacillin Sod/Tazobactam Sod 3.375 gm 05/29/16 14:30 06/03/16 12:05 Zosyn 3.375gm Ivpb (Pre-Docked) IVPB 3.375 gm Q8H-IV KWAKU Administration Scopolamine HBr 1 patch 05/20/16 15:45 06/01/16 15:20 Transderm-Scop - TD 1 patch Q72H KWAKU Administration ASSESSMENT/PLAN: 75 year old male with PMHx of HTN, IDDM, inguinal hernia who presented to the ED with diverticular bleed s/p right hemicolectomy. 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 Presently being treated for UTI. 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 Jansen: "given pt's guarded prognosis and current DNR status, would recommend continued observation until absolute indications for definitive surgical intervention arise (including, but not limited to, elevated serum creatinine, recurrent UTI or urosepsis, flank pain and/or gross hematuria) " Right inguinal hernia --incidental finding on CT --no surgical intervention at this time Anoxic brain injury s/p brainstem CVAs - Mental status unchanged Respiratory failure secondary to anoxic brain injury - Cont trach collar - Duonebs PRN HTN - BP well-controlled - Continue lisinopril, metoprolol, amlodipine Multiple pressure ulcers - single remaining Stage III healing pressure ulcer on left buttock - wet to dry dressing IDDM - Continue Levemir at 14u sq qhs - ISS BGM ACHS F/E/N - Cont tube feeds. Prophylaxis - SCDs bilaterally - No chemical anticoagulation 2/2 severe GI bleed Visit Type - Emergency Visit Emergency Visit: Yes ED Registration Date: 06/27/15 Care time: The patient presented to the Emergency Department on the above date and was hospitalized for further evaluation of their emergent condition. - New Patient This patient is new to me today: No - Critical Care Critical Care patient: No F/E/N - Tube feeds restarted, goal rate reduced to decrease chance of vomiting Prophylaxis - SCDs bilaterally - No chemical anticoagulation 2/2 spontaneous gluteal bleed and severe GI bleed - PT
[2016-06-03] MEDS: INSULIN DETEMIR 100 UNITS/ML MDV SQ SCH (21:53)
[2016-06-04] MEDS: PIPERACILLIN/TAZOB 3.375 GM/50 ML PRE-DOCKED IVPB SCH ×3 (01:46→18:03)
[2016-06-04] MEDS: INSULIN SLIDING SCALE (NOVOLOG) 1 VIAL SQ SCH ×2 (06:40→18:02)
[2016-06-04] MEDS: amLODIPine BESYLATE 10 MG TABLET (FP) GT SCH (09:03)
[2016-06-04] MEDS: LACTOBACILLUS ACIDOPHILUS 1 EACH TAB (FP) PO SCH (09:03)
[2016-06-04] MEDS: LISINOPRIL 20 MG TABLET (FP) GT SCH (09:03)
[2016-06-04] MEDS: PANTOPRAZOLE SOD 40 MG SUSPENSION PACKET GT SCH (09:03)
[2016-06-04] MEDS: MULTIVITAMINS THERAPEUTIC GT SCH (09:04)
[2016-06-04] MEDS: METOPROLOL TARTRATE 50 MG TABLET (FP) GT SCH ×2 (09:04→22:20)
[2016-06-04] MEDS: ALBUTEROL SO4 2.5/IPRATROPIUM 0.5 INH SOL 3 ML VIAL.NEB. NEB PRN (10:59)
--- NOTE | 2016-06-04 15:11 | PN ---
Progress Note (short form) - Note Progress Note: Pt seen and examined. alert, nonverbal Current Medications Generic Name Dose Route Start Last Admin Trade Name Freq PRN Reason Stop Dose Admin Acetaminophen 650 mg 05/26/16 14:23 06/01/16 01:47 Tylenol Oral Solution - GT 650 mg Q4H PRN Administration FEVER Albuterol/Ipratropium 1 amp 05/02/16 11:51 06/04/16 10:59 Duoneb - NEB 1 amp Q6H PRN Administration SHORTNESS OF BREATH Amlodipine Besylate 10 mg 12/30/15 10:00 06/04/16 09:03 Norvasc - GT 10 mg DAILY KWAKU Administration Guaifenesin 10 ml 12/29/15 10:43 05/16/16 10:16 Robitussin Dm - PO 10 ml Q6H PRN Administration COUGH Insulin Aspart 1 vial 01/28/16 16:30 06/04/16 06:40 Novolog Vial Sliding Scale - SQ Not Given BIDI [facility] Protocol Insulin Detemir 14 units 05/05/16 22:00 06/03/16 21:53 Levemir Vial SQ 14 units HS KWAKU Administration Lactobacillus Acidophilus 1 tab 12/30/15 10:00 06/04/16 09:03 Bacid - PO 1 tab DAILY KWAKU Administration Lisinopril 40 mg 12/30/15 10:00 06/04/16 09:03 Prinivil - GT 40 mg DAILY KWAKU Administration Metoprolol Tartrate 150 mg 12/29/15 22:00 06/04/16 09:04 Lopressor - GT 150 mg BID KWAKU Administration Metoprolol Tartrate 5 mg 12/29/15 10:43 Lopressor Injection - IVPB Q6H PRN HYPERTENSION Multivitamins 5 ml 12/30/15 10:00 06/04/16 09:04 Thera-Plus - GT 5 ml DAILY KWAKU Administration Pantoprazole Sodium 40 mg 12/30/15 10:00 06/04/16 09:03 Protonix Packets For Oral Suspension - GT 40 mg DAILY KWAKU Administration Piperacillin Sod/Tazobactam Sod 3.375 gm 05/29/16 14:30 06/04/16 08:59 Zosyn 3.375gm Ivpb (Pre-Docked) IVPB 3.375 gm Q8H-IV KWAKU Administration Scopolamine HBr 1 patch 05/20/16 15:45 06/01/16 15:20 Transderm-Scop - TD 1 patch Q72H KWAKU Administration Last Vital Signs Temp Pulse Resp BP Pulse Ox 99.1 F 84 20 167/87 100 06/04/16 14:00 06/04/16 14:00 06/04/16 14:00 06/04/16 14:00 06/04/16 10:47 General- resting comfortable, open eyes to verbal stimuli, doesnt withdraw to pain HEENT- PERRL, no secretions from trach CV- S1S2 RRR no murmur/rub/gallops Lungs- coarse breath sounds B/L no wheezing/rhonchi/rales Abdomen- soft NT/ND +LUQ PEG no guarding/rebound +BS Extremities- no edema A/P 75 yo M with PMH HTN, DM, inguinal hernia a/w BRBPR and melena with multiple syncopal episodes. 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 Neuro- Anoxic brain injury s/p brainstem CVA- +brainstem functioning . Not requiring medications for agitation. 2. CV- HTN- stable. cont to monitor and titrate medications accordingly. Cont lisinopril/metoprolol/norvasc 3. Respiratory- s/p trach. saturating well. Vent dependent. no weaning potential at this time 4. Abdomen- s/p R hemicolectomy. s/p PEG tolerating tube feeds. 5. Skin0 stage 3 pressure ulcer on L buttock (reported by RN, not directly visualized) cont wound management 6. ID- + VRE UTI, afebrile. cont zosyn day 7 of 7 will d/c once course completed. 7. Endo- DM- controlled. cont FS, ISS 8. DVT/GI PPx- on scd, protonix 9. Poor prognosis, DNR. Pt awaiting placement in vent capable facility 9. Poor prognosis, DNR. Pt awaiting placement in vent capable facility
[2016-06-04] MEDS: SCOPOLAMINE HYDROBROMIDE 1 PATCH PATCH.TD72 TD SCH (15:37)
[2016-06-04] MEDS: INSULIN DETEMIR 100 UNITS/ML MDV SQ SCH (22:19)
[2016-06-05] MEDS: PIPERACILLIN/TAZOB 3.375 GM/50 ML PRE-DOCKED IVPB SCH ×3 (01:31→17:12)
[2016-06-05] MEDS: INSULIN SLIDING SCALE (NOVOLOG) 1 VIAL SQ SCH ×2 (06:19→17:12)
[2016-06-05] MEDS: LACTOBACILLUS ACIDOPHILUS 1 EACH TAB (FP) PO SCH (10:55)
[2016-06-05] MEDS: LISINOPRIL 20 MG TABLET (FP) GT SCH (10:55)
[2016-06-05] MEDS: PANTOPRAZOLE SOD 40 MG SUSPENSION PACKET GT SCH (10:56)
[2016-06-05] MEDS: METOPROLOL TARTRATE 50 MG TABLET (FP) GT SCH ×2 (10:56→22:24)
[2016-06-05] MEDS: MULTIVITAMINS THERAPEUTIC GT SCH (10:56)
[2016-06-05] MEDS: amLODIPine BESYLATE 10 MG TABLET (FP) GT SCH (10:56)
--- NOTE | 2016-06-05 15:54 | WOUND ---
Wound Assessment [facility] Reason for visit: Wound Assessment Request for consultation: by [facility] Interdisciplinary Wound Care Team Initial Encounter: No Previous Encounter: Yes - History of Present Illness Past Medical History [employer] CVA Cardio/Vascular HTN Gastrointestinal GI Bleed Endocrine Diabetes Mellitus Past Surgical History Past Surgical History Colectomy Social History Smoking history Never smoked Have you smoked in the past 12 No months Hx Alcohol Use No Current Medications Generic Name Dose Route Start Last Admin Trade Name Freq PRN Reason Stop Dose Admin Acetaminophen 650 mg 05/26/16 14:23 06/01/16 01:47 Tylenol Oral Solution - GT 650 mg Q4H PRN Administration FEVER Albuterol/Ipratropium 1 amp 05/02/16 11:51 06/04/16 10:59 Duoneb - NEB 1 amp Q6H PRN Administration SHORTNESS OF BREATH Amlodipine Besylate 10 mg 12/30/15 10:00 06/05/16 10:56 Norvasc - GT 10 mg DAILY KWAKU Administration Guaifenesin 10 ml 12/29/15 10:43 05/16/16 10:16 Robitussin Dm - PO 10 ml Q6H PRN Administration COUGH Insulin Aspart 1 vial 01/28/16 16:30 06/05/16 06:19 Novolog Vial Sliding Scale - SQ Not Given BIDI [facility] Protocol Insulin Detemir 14 units 05/05/16 22:00 06/04/16 22:19 Levemir Vial SQ 14 units HS KWAKU Administration Lactobacillus Acidophilus 1 tab 12/30/15 10:00 06/05/16 10:55 Bacid - PO 1 tab DAILY KWAKU Administration Lisinopril 40 mg 12/30/15 10:00 06/05/16 10:55 Prinivil - GT 40 mg DAILY KWAKU Administration Metoprolol Tartrate 150 mg 12/29/15 22:00 06/05/16 10:56 Lopressor - GT 150 mg BID KWAKU Administration Metoprolol Tartrate 5 mg 12/29/15 10:43 Lopressor Injection - IVPB Q6H PRN HYPERTENSION Multivitamins 5 ml 12/30/15 10:00 06/05/16 10:56 Thera-Plus - GT 5 ml DAILY KWAKU Administration Pantoprazole Sodium 40 mg 12/30/15 10:00 06/05/16 10:56 Protonix Packets For Oral Suspension - GT 40 mg DAILY KWAKU Administration Piperacillin Sod/Tazobactam Sod 3.375 gm 05/29/16 14:30 06/05/16 10:56 Zosyn 3.375gm Ivpb (Pre-Docked) IVPB 3.375 gm Q8H-IV KWAKU Administration Scopolamine HBr 1 patch 05/20/16 15:45 06/04/16 15:37 Transderm-Scop - TD 1 patch Q72H KWAKU Administration Allergies Allergy/AdvReac Type Severity Reaction Status Date / Time No Known Allergies Allergy Verified 06/26/15 21:31 Physical Exam - Objective Last Vital Signs Temp Pulse Resp BP Pulse Ox 98.3 F 81 22 130/80 96 06/05/16 10:00 06/05/16 11:05 06/05/16 10:00 06/05/16 10:00 06/05/16 11:05 Laboratory Last Values WBC 6.2 K/mm3 (4.0-10.0) 05/30/16 06:50 Corrected WBC (auto) Cancelled 06/26/15 21:50 RBC 3.62 M/mm3 (4.00-5.60) L 05/30/16 06:50 Hgb 10.1 GM/dL (11.7-16.9) L D 05/30/16 06:50 Hct 31.0 % (35.4-49) L D 05/30/16 06:50 MCV 85.8 fl (80-96) 05/30/16 06:50 MCHC 32.6 g/dl (32.0-35.9) 05/30/16 06:50 RDW 15.3 % (11.9-15.9) 05/30/16 06:50 Plt Count 130 K/MM3 (134-434) L D 05/30/16 06:50 MPV 9.8 fl (7.5-11.1) 05/30/16 06:50 Add Manual Diff Cancelled 06/26/15 21:50 Neutrophils % 62.9 % (42.8-82.8) 05/30/16 06:50 Lymphocytes % 19.9 % (8-40) 05/30/16 06:50 Monocytes % 7.8 % (3.8-10.2) 05/30/16 06:50 Eosinophils % 8.9 % (0-4.5) H D 05/30/16 06:50 Basophils % 0.5 % (0-2.0) 05/30/16 06:50 Band Neutrophils 6.0 % (0-10) 06/28/15 09:35 Differential Comment Slide scanned 05/22/16 06:00 Reactive Lymphocytes 2 % (0-80) 04/30/16 17:00 Smudge Cells Cancelled 06/26/15 21:50 Platelet Estimate Adequate (NORMAL) 05/22/16 06:00 Platelet Comment No clumping noted 05/22/16 06:00 Platelet Comment No clotting detected 05/22/16 06:00 Normal RBC Morphology Cancelled 06/26/15 21:50 RBC Morphology Cancelled 06/26/15 21:50 ESR 100 mm/hr (0-20) H 02/03/16 06:25 INR 1.29 (0.80-1.00) H 12/26/15 08:45 PTT (Actin FS) 28.9 SECONDS (23.5-38.3) 09/03/15 19:20 Anticoagulation Therapy Y 07/11/15 07:07 Puncture Site Right radial 07/11/15 07:07 ABG pH 7.44 (7.35-7.45) 07/11/15 07:07 ABG pCO2 at Pt Temp 42.1 mmHg (35-45) 07/11/15 07:07 ABG pO2 at Pt Temp 113.0 mmHg (70-100) H D 07/11/15 07:07 ABG HCO3 27.8 meq/L (22-26) H 07/11/15 07:07 ABG O2 Sat (Measured) 99.1 % (90-98.9) H 07/11/15 07:07 ABG O2 Content 13.3 % vol (15-22) L 07/11/15 07:07 ABG Base Excess 3.8 meq/l (-2-2) H 07/11/15 07:07 Izaiah Test Positive 07/11/15 07:07 O2 Delivery Device Ventilator 07/11/15 07:07 Oxygen Flow Rate 30% 07/11/15 07:07 Vent Mode A/c 07/11/15 07:07 Vent Rate 10 07/11/15 07:07 Mechanical Rate Yes 07/11/15 07:07 PEEP 5.0 cmH2O 07/11/15 07:07 Pressure Support Vent 500 07/11/15 07:07 Sodium 140 mmol/L (136-145) 05/30/16 06:50 Potassium 3.6 mmol/L (3.5-5.1) 05/30/16 06:50 Chloride 101 mmol/L (98-107) 05/30/16 06:50 Carbon Dioxide 31 mmol/L (21-32) 05/30/16 06:50 Anion Gap 8 (8-16) 05/30/16 06:50 BUN 20 mg/dL (7-18) H 05/30/16 06:50 Creatinine 0.9 mg/dL (0.7-1.3) 05/30/16 06:50 Creat Clearance w eGFR > 60 (>60) 05/30/16 06:50 POC Glucometer 116 UNITS (()) 06/05/16 06:03 Random Glucose 166 mg/dL (74-106) H D 05/30/16 06:50 Lactic Acid 1.217 mmol/L (0.4-2.0) 12/25/15 12:45 Calcium 9.3 mg/dL (8.5-10.1) 05/30/16 06:50 Phosphorus 2.6 mg/dL (2.5-4.9) D 05/30/16 06:50 Magnesium 2.2 mg/dL (1.8-2.4) 05/30/16 06:50 Total Bilirubin 0.3 mg/dL (0.2-1.0) D 05/30/16 06:50 Direct Bilirubin 0.1 mg/dL (0.0-0.2) 05/19/16 11:00 GGT 29 U/L (5-85) 04/18/16 05:45 AST 24 U/L (15-37) D 05/30/16 06:50 ALT 32 U/L (12-78) D 05/30/16 06:50 Alkaline Phosphatase 118 U/L (45-117) H D 05/30/16 06:50 Creatine Kinase 62 IU/L (38-174) 06/28/15 09:35 Creatine Kinase Index 0.7 % (0.0-5.0) 06/26/15 21:50 CK-MB (CK-2) 1.077 ng/ml (0.3-4.0) 06/26/15 21:50 CK-MB (CK-2) Rel Index Cancelled 06/26/15 21:50 Troponin I 0.07 ng/ml (0.03-0.5) D 07/09/15 05:00 C-Reactive Protein 2.1 MG/DL (0.00-0.3) H 09/03/15 07:30 Total Protein 7.2 g/dl (6.4-8.2) 05/30/16 06:50 Albumin 3.0 g/dl (3.4-5.0) L 05/30/16 06:50 Triglycerides 143 mg/dL (35-160) D 09/02/15 06:30 Cholesterol 106 mg/dL (50-200) D 09/02/15 06:30 Total LDL Cholesterol 66 mg/dL 09/02/15 06:30 HDL Cholesterol 26 mg/dL (40-60) L D 09/02/15 06:30 Lipase 172 U/L (73-393) 05/19/16 11:00 Prolactin 19.8 ng/ml (4.0-15.2) H 07/02/15 05:20 Urine Color Dkyellow 05/25/16 21:27 Urine Appearance Cloudy 05/25/16 21:27 Urine pH 5.0 (5.0-8.0) D 05/25/16 21:27 Ur Specific Mcclelland 1.023 (1.001-1.035) 05/25/16 21:27 Urine Protein 2+ (NEGATIVE) H 05/25/16 21:27 Urine Glucose (UA) Negative (NEGATIVE) 05/25/16 21:27 Urine Ketones Negative (NEGATIVE) 05/25/16 21:27 Urine Blood 2+ (NEGATIVE) H 05/25/16 21:27 Urine Nitrite Positive (NEGATIVE) 05/25/16 21:27 Urine Bilirubin Negative (NEGATIVE) 05/25/16 21:27 Urine Ictotest Negative (NEGATIVE) 01/29/16 14:44 Urine Urobilinogen Negative E.U./dl (0.2-1.0) 05/25/16 21:27 Ur Leukocyte Esterase 2+ (NEGATIVE) H 05/25/16 21:27 Urine RBC 90 /hpf (0-3) 05/25/16 21:27 Urine WBC 57 /hpf (3-5) 05/25/16 21:27 Ur Epithelial Cells Rare /hpf (FEW) 05/25/16 21:27 Calcium Oxalate Crystal Few /hpf (NONE SEEN) 01/29/16 14:44 Urine Bacteria Many /hpf (NONE SEEN) 05/25/16 21:27 Hyaline Casts 3 /lpf 01/29/16 14:44 Granular Casts 0 /lpf 01/29/16 14:44 Urine Mucus Many 05/25/16 21:27 Urine Yeast Few 01/29/16 14:44 Stool Occult Blood Negative (NEGATIVE) 07/02/15 12:00 Vancomycin Trough 20.819 ug/ml (5.0-10.0) H* 12/01/15 04:30 Hepatitis C Ab (EIA) <0.1 s/co ratio (0.0-0.9) 07/03/15 05:15 Blood Type O POSITIVE 09/03/15 18:48 Antibody Screen Negative 09/03/15 18:48 Crossmatch See Detail 09/03/15 19:20 Crossmatch IS Only See Detail 06/26/15 21:50 Spec Expiration Date 06/26/15 21:50 Microbiology 05/30/16 21:30 Stool Clostridium difficile Antigen (MACHO) - Final 05/30/16 21:30 Stool Clostridium difficile Toxin Assay - Final 05/25/16 18:45 Blood - Peripheral Venous Blood Culture - Final NO GROWTH AFTER 5 DAYS INCUBATION 05/25/16 18:45 Blood - Peripheral Venous Blood Culture - Final NO GROWTH AFTER 5 DAYS INCUBATION 05/25/16 18:45 Urine - Urine Schwartz Urine Culture - Final Providencia Stuartii Vr Ec Faecalis 05/05/16 11:00 Blood - Peripheral Venous Blood Culture - Final NO GROWTH AFTER 5 DAYS INCUBATION 05/05/16 11:00 Blood - Peripheral Venous Blood Culture - Final NO GROWTH AFTER 5 DAYS INCUBATION 05/03/16 13:08 Blood - Peripheral Venous Blood Culture - Final NO GROWTH AFTER 5 DAYS INCUBATION 05/03/16 13:08 Blood - Peripheral Venous Blood Culture - Final NO GROWTH AFTER 5 DAYS INCUBATION 05/05/16 19:00 Sputum - Endotracheal Suction W/O Vent Gram Stain - Final 05/05/16 19:00 Sputum - Endotracheal Suction W/O Vent Sputum Culture - Final Pseudomonas Aeruginosa 05/03/16 19:00 Stool Clostridium difficile Antigen (MACHO) - Final 05/03/16 19:00 Stool Clostridium difficile Toxin Assay - Final 05/03/16 15:00 Urine - Urine - Catheterized Urine Culture - Final NO GROWTH OBTAINED 04/17/16 16:55 Blood - Peripheral Venous Blood Culture - Final NO GROWTH AFTER 5 DAYS INCUBATION 04/17/16 16:55 Blood - Peripheral Venous Blood Culture - Final NO GROWTH AFTER 5 DAYS INCUBATION 04/18/16 21:30 Stool Clostridium difficile Antigen (MACHO) - Final 04/18/16 21:30 Stool Clostridium difficile Toxin Assay - Final 03/27/16 15:25 Stool Clostridium difficile Antigen (MACHO) - Final 03/27/16 15:25 Stool Clostridium difficile Toxin Assay - Final 03/02/16 02:00 Stool Clostridium difficile Antigen (MACHO) - Final 03/02/16 02:00 Stool Clostridium difficile Toxin Assay - Final 02/28/16 16:30 Urine - Urine - Catheterized Urine Culture - Final NO GROWTH OBTAINED 02/23/16 17:35 Blood - Peripheral Venous Blood Culture - Final NO GROWTH AFTER 5 DAYS INCUBATION 02/23/16 17:35 Blood - Peripheral Venous Blood Culture - Final NO GROWTH AFTER 5 DAYS INCUBATION 02/27/16 14:15 Urine - Urine Clean Catch Urine Culture - Final Contaminated: Please Repeat 02/23/16 19:45 Urine - Urine Schwartz Urine Culture - Final Contaminated: Please Repeat 01/29/16 11:05 Blood - Peripheral Venous Blood Culture - Final NO GROWTH AFTER 5 DAYS INCUBATION 01/29/16 11:05 Blood - Peripheral Venous Blood Culture - Final NO GROWTH AFTER 5 DAYS INCUBATION 01/30/16 08:00 Sputum - Endotracheal Suction W/O Vent Gram Stain - Final 01/30/16 08:00 Sputum - Endotracheal Suction W/O Vent Sputum Culture - Final Acinetobacter Baumannii/Haemol 01/29/16 22:12 Stool Clostridium difficile Antigen (MACHO) - Final 01/29/16 22:12 Stool Clostridium difficile Toxin Assay - Final 01/29/16 14:44 Urine - Urine - Catheterized Urine Culture - Final NO GROWTH OBTAINED 01/06/16 16:00 Stool Clostridium difficile Antigen (MACHO) - Final 01/06/16 16:00 Stool Clostridium difficile Toxin Assay - Final 12/24/15 04:00 Blood - Peripheral Venous Blood Culture - Final NO GROWTH AFTER 5 DAYS INCUBATION 12/24/15 03:30 Blood - Peripheral Venous Blood Culture - Final NO GROWTH AFTER 5 DAYS INCUBATION 12/24/15 05:45 Urine - Urine Clean Catch Urine Culture - Final 10/28/15 10:50 Blood - Peripheral Venous Blood Culture - Final NO GROWTH AFTER 5 DAYS INCUBATION 10/28/15 10:50 Blood - Peripheral Venous Blood Culture - Final NO GROWTH AFTER 5 DAYS INCUBATION 10/30/15 21:15 Stool Clostridium difficile (PCR) - Final 10/28/15 14:30 Urine - Urine - Catheterized Urine Culture - Final NO GROWTH OBTAINED 10/29/15 11:15 Stool Clostridium difficile Antigen (MACHO) - Final 10/29/15 11:15 Stool Clostridium difficile Toxin Assay - Final 09/08/15 16:30 Stool Clostridium difficile Antigen (MACHO) - Final 09/08/15 16:30 Stool Clostridium difficile Toxin Assay - Final 09/01/15 08:53 Blood - Peripheral Venous Blood Culture - Final NO GROWTH AFTER 5 DAYS INCUBATION 09/01/15 08:53 Blood - Peripheral Venous Blood Culture - Final NO GROWTH AFTER 5 DAYS INCUBATION 09/01/15 10:10 Urine - Urine - Catheterized Urine Culture - Final 08/25/15 15:00 Blood - Peripheral Venous Blood Culture - Final NO GROWTH AFTER 5 DAYS INCUBATION 08/25/15 15:00 Blood - Peripheral Venous Blood Culture - Final NO GROWTH AFTER 5 DAYS INCUBATION 08/24/15 19:30 Stool Clostridium difficile Antigen (MACHO) - Final 08/24/15 19:30 Stool Clostridium difficile Toxin Assay - Final 08/14/15 10:50 Blood - Peripheral Venous Blood Culture - Final NO GROWTH AFTER 5 DAYS INCUBATION 08/14/15 10:50 Blood - Peripheral Venous Blood Culture - Final NO GROWTH AFTER 5 DAYS INCUBATION 08/02/15 17:20 Blood - Peripheral Venous Blood Culture - Final NO GROWTH AFTER 5 DAYS INCUBATION 08/02/15 17:20 Blood - Peripheral Venous Blood Culture - Final NO GROWTH AFTER 5 DAYS INCUBATION 07/24/15 21:50 Sputum - Endotrachea Suction/Ventilator Gram Stain - Final 07/24/15 21:50 Sputum - Endotrachea Suction/Ventilator Sputum Culture - Final NORMAL RESPIRATORY ARMAND 07/30/15 18:30 Blood - Peripheral Venous Blood Culture - Final NO GROWTH AFTER 5 DAYS INCUBATION 07/30/15 18:30 Blood - Peripheral Venous Blood Culture - Final NO GROWTH AFTER 5 DAYS INCUBATION 08/02/15 19:00 Urine - Urine Schwartz Urine Culture - Final NO GROWTH OBTAINED 08/02/15 22:55 Stool Clostridium difficile Antigen (MACHO) - Final 08/02/15 22:55 Stool Clostridium difficile Toxin Assay - Final 07/27/15 19:00 Blood - Peripheral Venous Blood Culture - Final NO GROWTH AFTER 5 DAYS INCUBATION 07/27/15 19:00 Blood - Peripheral Venous Blood Culture - Final NO GROWTH AFTER 5 DAYS INCUBATION 07/27/15 19:30 Stool Clostridium difficile (PCR) - Final 07/27/15 15:55 Urine - Urine Schwartz Urine Culture - Final NO GROWTH OBTAINED 07/15/15 11:30 Blood - Peripheral Venous Blood Culture - Final NO GROWTH AFTER 5 DAYS INCUBATION 07/15/15 11:30 Blood - Peripheral Venous Blood Culture - Final NO GROWTH AFTER 5 DAYS INCUBATION 07/10/15 10:30 Stool Stool Culture - Final NO SALMONELLA, SHIGELLA, YERSINIA, CAMPYLOBACTER OR E COLI 0157 ISOLATED 07/10/15 10:35 Stool Clostridium difficile Antigen (MACHO) - Final 07/10/15 10:35 Stool Clostridium difficile Toxin Assay - Final 07/10/15 10:30 Stool Gram Stain - Final 07/02/15 18:00 Blood - Peripheral Venous Blood Culture - Final NO GROWTH AFTER 5 DAYS INCUBATION 07/02/15 18:00 Blood - Peripheral Venous Blood Culture - Final NO GROWTH AFTER 5 DAYS INCUBATION 06/28/15 09:32 Blood - Peripheral Venous Blood Culture - Final NO GROWTH AFTER 5 DAYS INCUBATION 06/28/15 09:32 Blood - Peripheral Venous Blood Culture - Final NO GROWTH AFTER 5 DAYS INCUBATION 06/28/15 17:30 Sputum - Endotrachea Suction/Ventilator Gram Stain - Final 06/28/15 17:30 Sputum - Endotrachea Suction/Ventilator Sputum Culture - Final NORMAL RESPIRATORY ARMAND 06/27/15 20:30 Urine - Urine Schwartz Urine Culture - Final NO GROWTH OBTAINED 06/28/15 10:00 Urine For Antigen Detection Legionella Antigen - Final 06/28/15 10:00 Urine For Antigen Detection Streptococcus pneumoniae Antigen (M - Final Wounds - Wound Wound #1 Type of wound: Yes: Pressure ulcer Stage: III (Previously healed Stage III has reopened) Location/laterality: Right buttock Wound size: 0.5cmL x 0.5cmW x 0.1cm D Thickness: Partial Undermining: No Tunneling: No Drainage/exudate: No Wound bed tissue: Yes: Erythematous Wound edges color: Other (White fibrous) Wound edges raised: Yes Wound edges rolled: No Wound edges contracted: No Pain: No Surrounding tissue to 4cm: Yes: Healthy Wound #2 Type of wound: Yes: Pressure ulcer Stage: III (Healing stage III) Location/laterality: Left buttock - superior Wound size: .75cmL x .75cmW x .1cmD Thickness: Partial Undermining: No Tunneling: No Drainage/exudate: No Wound bed tissue: Yes: Erythematous Wound edges color: Other (White fibrous) Wound edges raised: Yes Wound edges rolled: No Wound edges contracted: No Pain: No Surrounding tissue to 4cm: Yes: Healthy Wound #3 Type of wound: Yes: Pressure ulcer Stage: II Location/laterality: Left buttock - inferior Wound size: 0.5cmL x 0.5cmW x 0.1cmD Thickness: Partial Undermining: No Tunneling: No Drainage/exudate: No Wound bed tissue: Yes: Erythematous Wound edges color: Other (White fibrous) Wound edges raised: Yes Wound edges rolled: No Wound edges contracted: No Pain: No Surrounding tissue to 4cm: Yes: Healthy Assessment/Plan Wound #1 Diagnosis: Pressure ulcer Wound specific intervention: Allevyn dressing only Wound #2 Diagnosis: Pressure ulcer Wound specific intervention: Allevyn dressing only Wound #3 Diagnosis: Pressure ulcer Wound specific intervention: Allevyn dressing only Impediments to healing: Limited mobility, Unable to self-position in bed, Hypoalbunemia, Nutritional deficiencies, Incontinence of urine, Incontinence of bowel, Other (Trach collar; PEG) Nutrition/Dietary supplements/vitamins: - continue TF Glucerna 1.5 at goal rate of 60 ml/hr (2160 kcal/118 gm Prot ) - continue water flushes at 50 ml/hr - continue weekly weights for close monitoring Support Surface: [employer] Sport Bed HOB elevation: 30 degrees Off-loading: Turning/repositioning q2h, Elevate heels off bed with pillows Incontinence management: Avoid diapers; if must be used, do not secure around patient
[2016-06-05] MEDS: INSULIN DETEMIR 100 UNITS/ML MDV SQ SCH (22:23)
[2016-06-06] MEDS: PIPERACILLIN/TAZOB 3.375 GM/50 ML PRE-DOCKED IVPB SCH ×2 (01:44→10:08)
[2016-06-06] MEDS: INSULIN SLIDING SCALE (NOVOLOG) 1 VIAL SQ SCH ×2 (06:02→18:20)
--- NOTE | 2016-06-06 07:17 | PN ---
Physical Exam: SUBJECTIVE: Patient seen and examined OBJECTIVE: Vital Signs Period Temp Pulse Resp BP Sys/Santiago Pulse Ox Last 24 Hr 98.0 F-98.5 F 74-81 22-22 130-144/80-83 96-96 GENERAL/NEURO: Eyes open. Non-verbal. Does not follow commands. Non-purposeful movement. HEAD: Normal with no signs of trauma. Trach. EYES: PERRL, extraocular movements intact, sclera anicteric, conjunctiva clear. No ptosis. ENT: Ears normal, nares patent, oropharynx clear without exudates, moist mucous membranes. LUNGS: CTA; on trach collar; no wheezing, no rhonchi, no accessory muscle use. HEART: Regular rate and rhythm, S1, S2 without murmur, rub or gallop. ABDOMEN: Soft, nontender, nondistended, normoactive bowel sounds, no guarding, no rebound, no hepatosplenomegaly, no masses. PEG tube. EXTREMITIES: 2+ pulses, warm, well-perfused, no edema. SKIN: Three stage II and III sacral pressure ulcers, not visualized today CBCD WBC 6.2 K/mm3 (4.0-10.0) 05/30/16 06:50 RBC 3.62 M/mm3 (4.00-5.60) L 05/30/16 06:50 Hgb 10.1 GM/dL (11.7-16.9) L D 05/30/16 06:50 Hct 31.0 % (35.4-49) L D 05/30/16 06:50 MCV 85.8 fl (80-96) 05/30/16 06:50 MCHC 32.6 g/dl (32.0-35.9) 05/30/16 06:50 RDW 15.3 % (11.9-15.9) 05/30/16 06:50 Plt Count 130 K/MM3 (134-434) L D 05/30/16 06:50 MPV 9.8 fl (7.5-11.1) 05/30/16 06:50 CMP Sodium 140 mmol/L (136-145) 05/30/16 06:50 Potassium 3.6 mmol/L (3.5-5.1) 05/30/16 06:50 Chloride 101 mmol/L (98-107) 05/30/16 06:50 Carbon Dioxide 31 mmol/L (21-32) 05/30/16 06:50 Anion Gap 8 (8-16) 05/30/16 06:50 BUN 20 mg/dL (7-18) H 05/30/16 06:50 Creatinine 0.9 mg/dL (0.7-1.3) 05/30/16 06:50 Creat Clearance w eGFR > 60 (>60) 05/30/16 06:50 Calcium 9.3 mg/dL (8.5-10.1) 05/30/16 06:50 Total Bilirubin 0.3 mg/dL (0.2-1.0) D 05/30/16 06:50 AST 24 U/L (15-37) D 05/30/16 06:50 ALT 32 U/L (12-78) D 05/30/16 06:50 Alkaline Phosphatase 118 U/L (45-117) H D 05/30/16 06:50 Total Protein 7.2 g/dl (6.4-8.2) 05/30/16 06:50 Albumin 3.0 g/dl (3.4-5.0) L 05/30/16 06:50 Current Medications Generic Name Dose Route Start Last Admin Trade Name Freq PRN Reason Stop Dose Admin Acetaminophen 650 mg 05/26/16 14:23 06/01/16 01:47 Tylenol Oral Solution - GT 650 mg Q4H PRN Administration FEVER Albuterol/Ipratropium 1 amp 05/02/16 11:51 06/04/16 10:59 Duoneb - NEB 1 amp Q6H PRN Administration SHORTNESS OF BREATH Amlodipine Besylate 10 mg 12/30/15 10:00 06/06/16 10:08 Norvasc - GT 10 mg DAILY KWAKU Administration Guaifenesin 10 ml 12/29/15 10:43 05/16/16 10:16 Robitussin Dm - PO 10 ml Q6H PRN Administration COUGH Insulin Aspart 1 vial 01/28/16 16:30 06/06/16 06:02 Novolog Vial Sliding Scale - SQ Not Given BIDI [facility] Protocol Insulin Detemir 14 units 05/05/16 22:00 06/05/16 22:23 Levemir Vial SQ 14 units HS KWAKU Administration Lactobacillus Acidophilus 1 tab 12/30/15 10:00 06/06/16 10:07 Bacid - PO 1 tab DAILY KWAKU Administration Lisinopril 40 mg 12/30/15 10:00 06/06/16 10:08 Prinivil - GT 40 mg DAILY KWAKU Administration Metoprolol Tartrate 150 mg 12/29/15 22:00 06/06/16 10:07 Lopressor - GT 150 mg BID KWAKU Administration Metoprolol Tartrate 5 mg 12/29/15 10:43 Lopressor Injection - IVPB Q6H PRN HYPERTENSION Multivitamins 5 ml 12/30/15 10:00 06/06/16 10:08 Thera-Plus - GT 5 ml DAILY KWAKU Administration Pantoprazole Sodium 40 mg 12/30/15 10:00 06/06/16 10:08 Protonix Packets For Oral Suspension - GT 40 mg DAILY KWAKU Administration Scopolamine HBr 1 patch 05/20/16 15:45 06/04/16 15:37 Transderm-Scop - TD 1 patch Q72H KWAKU Administration ASSESSMENT/PLAN: 75 year old male with PMHx of HTN, IDDM, inguinal hernia who presented to the ED with diverticular bleed s/p right hemicolectomy. 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 Presently being treated for UTI. UTI, resolved --completed seven-day course of Zosyn --repeat UA/UC ordered Hydronephrosis, chronic --renal function stable Right inguinal hernia --incidental finding on CT --no surgical intervention at this time Anoxic brain injury s/p brainstem CVAs --mental status unchanged Respiratory failure secondary to anoxic brain injury --cont trach collar --Duonebs PRN HTN --BP well-controlled --continue lisinopril, metoprolol, amlodipine Multiple pressure ulcers --three (3) stage II and III sacral pressure ulcers --Allevyn dressing IDDM --Levemir --Novolog sliding scale coverage --fingersticks DVT prophylaxis: SCDs, no chemical anticoagulation Dispo: Continue regular weekly lab draws and ECGs on Wednesdays, and PRN; UA/UC pending to see if cleared UTI. DNR/DNI. Visit Type - Emergency Visit Emergency Visit: Yes ED Registration Date: 06/27/15 Care time: The patient presented to the Emergency Department on the above date and was hospitalized for further evaluation of their emergent condition. - New Patient This patient is new to me today: No - Critical Care Critical Care patient: No
[2016-06-06] MEDS: LACTOBACILLUS ACIDOPHILUS 1 EACH TAB (FP) PO SCH (10:07)
[2016-06-06] MEDS: METOPROLOL TARTRATE 50 MG TABLET (FP) GT SCH ×2 (10:07→22:48)
[2016-06-06] MEDS: MULTIVITAMINS THERAPEUTIC GT SCH (10:08)
[2016-06-06] MEDS: amLODIPine BESYLATE 10 MG TABLET (FP) GT SCH (10:08)
[2016-06-06] MEDS: LISINOPRIL 20 MG TABLET (FP) GT SCH (10:08)
[2016-06-06] MEDS: PANTOPRAZOLE SOD 40 MG SUSPENSION PACKET GT SCH (10:08)
[2016-06-06 16:42] LABS: URINE APPEARANCE CLEAR; URINE BILIRUBIN NEGATIVE (NEGATIVE); URINE BLOOD NEGATIVE (NEGATIVE); URINE COLOR YELLOW; URINE GLUCOSE (UA) NEGATIVE (NEGATIVE); URINE KETONE NEGATIVE (NEGATIVE); URINE LEUK ESTERASE NEGATIVE (NEGATIVE); URINE NITRITE NEGATIVE (NEGATIVE); URINE PROTEIN NEGATIVE (NEGATIVE); URINE UROBILINOGEN NEGATIVE E.U./dl (0.2-1.0)
[2016-06-06] MEDS: INSULIN DETEMIR 100 UNITS/ML MDV SQ SCH (22:48)
[2016-06-07] MEDS: INSULIN SLIDING SCALE (NOVOLOG) 1 VIAL SQ SCH ×2 (06:04→17:03)
[2016-06-07 08:11] LABS: BASOPHIL 0.6 % (0-2.0); EOSINOPHIL 3.6 % (0-4.5); MCH 27.5 pg (25.7-33.7); MCHC 32.2 g/dl (32.0-35.9); MEAN CELL VOLUME 85.4 fl (80-96); MEAN PLT VOLUME 7.7 fl (7.5-11.1); NEUTROPHILS 66.4 % (42.8-82.8); PLATELET COUNT 287 K/MM3 (134-434); RDW 15.4 % (11.9-15.9)
[2016-06-07 08:36] LABS: ALBUMIN 3.2 g/dl (3.4-5.0); ANION GAP 6 (8-16); CALCIUM 9.8 mg/dL (8.5-10.1); CO2 31 mmol/L (21-32); GLUCOSE,RANDOM 154 mg/dL (74-106); MAGNESIUM 2.2 mg/dL (1.8-2.4)
[2016-06-07 08:41] LABS: ALK PHOS 130 U/L (45-117); BILIRUBIN,TOTAL 0.3 mg/dL (0.2-1.0); CREATININE 0.8 mg/dL (0.7-1.3); SGOT/AST 15 U/L (15-37); SGPT/ALT 28 U/L (12-78); TOT PROT 7.7 g/dl (6.4-8.2)
[2016-06-07] MEDS: PANTOPRAZOLE SOD 40 MG SUSPENSION PACKET GT SCH (11:11)
[2016-06-07] MEDS: LACTOBACILLUS ACIDOPHILUS 1 EACH TAB (FP) PO SCH (11:11)
[2016-06-07] MEDS: METOPROLOL TARTRATE 50 MG TABLET (FP) GT SCH (11:11)
[2016-06-07] MEDS: LISINOPRIL 20 MG TABLET (FP) GT SCH (11:12)
[2016-06-07] MEDS: MULTIVITAMINS THERAPEUTIC GT SCH (11:12)
[2016-06-07] MEDS: amLODIPine BESYLATE 10 MG TABLET (FP) GT SCH (11:12)
--- NOTE | 2016-06-07 11:28 | PN ---
Progress Note (short form) - Note Progress Note: Hospitalist Progress Note This patient presented to the emergency department and was admitted for further evaluation of their emergent condition. SUBJECTIVE:Patient seen and examined. No acute events overnight. OBJECTIVE: Vital Signs Period Temp Pulse Resp BP Sys/Santiago Pulse Ox Last 24 Hr 98.8 F-99.2 F 67-79 20-20 143-154/79-89 97-98 GENERAL: no acute distress PULMONARY: trach collar, CTAB CARDIOVASCULAR: nS1,S2, RRR, no RMG ABDOMINAL: soft, nontender, nondistended, normoactive bowel sounds.+Peg tube EXTREMITIES: warm, well perfused, no edema NEUROLOGICAL: nonfocal CBCD WBC 9.0 K/mm3 (4.0-10.0) D 06/07/16 07:40 RBC 3.58 M/mm3 (4.00-5.60) L 06/07/16 07:40 Hgb 9.8 GM/dL (11.7-16.9) L 06/07/16 07:40 Hct 30.6 % (35.4-49) L 06/07/16 07:40 MCV 85.4 fl (80-96) 06/07/16 07:40 MCHC 32.2 g/dl (32.0-35.9) 06/07/16 07:40 RDW 15.4 % (11.9-15.9) 06/07/16 07:40 Plt Count 287 K/MM3 (134-434) D 06/07/16 07:40 MPV 7.7 fl (7.5-11.1) D 06/07/16 07:40 CMP Sodium 139 mmol/L (136-145) 06/07/16 07:40 Potassium 3.9 mmol/L (3.5-5.1) 06/07/16 07:40 Chloride 102 mmol/L (98-107) 06/07/16 07:40 Carbon Dioxide 31 mmol/L (21-32) 06/07/16 07:40 Anion Gap 6 (8-16) L 06/07/16 07:40 BUN 18 mg/dL (7-18) 06/07/16 07:40 Creatinine 0.8 mg/dL (0.7-1.3) 06/07/16 07:40 Creat Clearance w eGFR > 60 (>60) 06/07/16 07:40 Calcium 9.8 mg/dL (8.5-10.1) 06/07/16 07:40 Total Bilirubin 0.3 mg/dL (0.2-1.0) 06/07/16 07:40 AST 15 U/L (15-37) D 06/07/16 07:40 ALT 28 U/L (12-78) 06/07/16 07:40 Alkaline Phosphatase 130 U/L (45-117) H 06/07/16 07:40 Total Protein 7.7 g/dl (6.4-8.2) 06/07/16 07:40 Albumin 3.2 g/dl (3.4-5.0) L 06/07/16 07:40 Current Medications Generic Name Dose Route Start Last Admin Trade Name Freq PRN Reason Stop Dose Admin Acetaminophen 650 mg 05/26/16 14:23 06/01/16 01:47 Tylenol Oral Solution - GT 650 mg Q4H PRN Administration FEVER Albuterol/Ipratropium 1 amp 05/02/16 11:51 06/04/16 10:59 Duoneb - NEB 1 amp Q6H PRN Administration SHORTNESS OF BREATH Amlodipine Besylate 10 mg 12/30/15 10:00 06/07/16 11:12 Norvasc - GT 10 mg DAILY KWAKU Administration Guaifenesin 10 ml 12/29/15 10:43 05/16/16 10:16 Robitussin Dm - PO 10 ml Q6H PRN Administration COUGH Insulin Aspart 1 vial 01/28/16 16:30 06/07/16 06:04 Novolog Vial Sliding Scale - SQ Not Given BIDI [facility] Protocol Insulin Detemir 14 units 05/05/16 22:00 06/06/16 22:48 Levemir Vial SQ 14 units HS KWAKU Administration Lactobacillus Acidophilus 1 tab 12/30/15 10:00 06/07/16 11:11 Bacid - PO 1 tab DAILY KWAKU Administration Lisinopril 40 mg 12/30/15 10:00 06/07/16 11:12 Prinivil - GT 40 mg DAILY KWAKU Administration Metoprolol Tartrate 150 mg 12/29/15 22:00 06/07/16 11:11 Lopressor - GT 150 mg BID KWAKU Administration Metoprolol Tartrate 5 mg 12/29/15 10:43 Lopressor Injection - IVPB Q6H PRN HYPERTENSION Multivitamins 5 ml 12/30/15 10:00 06/07/16 11:12 Thera-Plus - GT 5 ml DAILY KWAKU Administration Pantoprazole Sodium 40 mg 12/30/15 10:00 06/07/16 11:11 Protonix Packets For Oral Suspension - GT 40 mg DAILY KWAKU Administration Scopolamine HBr 1 patch 05/20/16 15:45 06/04/16 15:37 Transderm-Scop - TD 1 patch Q72H KWAKU Administration ASSESSMENT/PLAN: Patient is a 75 year old male with PMHx of HTN, IDDM, inguinal hernia who presented to the ED with diverticular bleed s/p right hemicolectomy. 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 Now with hydronephrosis and right sided inguinal hernia UTI - Completed seven-day course of zosyn - repeat UA negative - wbc WNL, afebrile Vomiting - Resolved Hydronephrosis - Per urology, no intervention at this time, continue close monitoring of renal fxn Right inguinal hernia - Per surgery no bowel involvement and no surgery at this time. Continue to monitor. Anoxic brain injury s/p brainstem CVAs - Mental status unchanged - Trach collar - duonebs prn - monitor SpO2 Respiratory failure secondary to anoxic brain injury - Cont trach collar - Duonebs PRN HTN - Cont lisinopril, metoprolol, amlodipine Multiple pressure ulcers - Three Stage III healing pressure sacral - wet to dry dressing DM II - Continue Levemir - ISS BGM ACHS Prophylaxis - SCDs bilaterally - No chemical anticoagulation 2/2 spontaneous gluteal bleed and severe GI bleed - PT CODE STATUS: DNR CODE STATUS: DNR
--- NOTE | 2016-06-07 14:17 | EKG ---
Test Reason : Blood Pressure : / mmHG Vent. Rate : 059 BPM Atrial Rate : 059 BPM P-R Int : 168 ms QRS Dur : 092 ms QT Int : 422 ms P-R-T Axes : 030 -22 -06 degrees QTc Int : 417 ms SINUS BRADYCARDIA WITH MARKED SINUS ARRHYTHMIA VOLTAGE CRITERIA FOR LEFT VENTRICULAR HYPERTROPHY ABNORMAL ECG WHEN COMPARED WITH ECG OF 09-JUL-2015 08:34, VENT. RATE HAS DECREASED BY 35 BPM T WAVE INVERSION NO LONGER EVIDENT IN ANTERIOR LEADS QT HAS SHORTENED Confirmed by LULY HERRERA, CRISTIANE ([id number]) on 06/07/2016 2:16:59 PM Referred By: CORBIN MACIEL DR Overread By: CRISTIANE MAURICIO MD
[2016-06-07] MEDS: SCOPOLAMINE HYDROBROMIDE 1 PATCH PATCH.TD72 TD SCH (17:02)
[2016-06-08] MEDS: METOPROLOL TARTRATE 50 MG TABLET (FP) GT SCH ×3 (00:05→23:40)
[2016-06-08] MEDS: INSULIN DETEMIR 100 UNITS/ML MDV SQ SCH ×2 (00:06→23:39)
[2016-06-08] MEDS: INSULIN SLIDING SCALE (NOVOLOG) 1 VIAL SQ SCH ×2 (06:59→17:20)
[2016-06-08] MEDS: ALBUTEROL SO4 2.5/IPRATROPIUM 0.5 INH SOL 3 ML VIAL.NEB. NEB PRN (10:10)
--- NOTE | 2016-06-08 10:21 | PN ---
Progress Note (short form) - Note Progress Note: Hospitalist Progress Note This patient presented to the emergency department and was admitted for further evaluation of their emergent condition. SUBJECTIVE:Patient seen and examined. No acute events overnight. OBJECTIVE: Vital Signs Period Temp Pulse Resp BP Sys/Santiago Pulse Ox Last 24 Hr 98.9 F-99.6 F 70-84 20-20 149-159/68-90 96-98 GENERAL: no acute distress PULMONARY: trach collar, scattered rhonchi CARDIOVASCULAR: nS1,S2, RRR, no RMG ABDOMINAL: soft, nontender, nondistended, normoactive bowel sounds.+Peg tube EXTREMITIES: warm, well perfused, no edema NEUROLOGICAL: nonfocal CBCD WBC 9.0 K/mm3 (4.0-10.0) D 06/07/16 07:40 RBC 3.58 M/mm3 (4.00-5.60) L 06/07/16 07:40 Hgb 9.8 GM/dL (11.7-16.9) L 06/07/16 07:40 Hct 30.6 % (35.4-49) L 06/07/16 07:40 MCV 85.4 fl (80-96) 06/07/16 07:40 MCHC 32.2 g/dl (32.0-35.9) 06/07/16 07:40 RDW 15.4 % (11.9-15.9) 06/07/16 07:40 Plt Count 287 K/MM3 (134-434) D 06/07/16 07:40 MPV 7.7 fl (7.5-11.1) D 06/07/16 07:40 CMP Sodium 139 mmol/L (136-145) 06/07/16 07:40 Potassium 3.9 mmol/L (3.5-5.1) 06/07/16 07:40 Chloride 102 mmol/L (98-107) 06/07/16 07:40 Carbon Dioxide 31 mmol/L (21-32) 06/07/16 07:40 Anion Gap 6 (8-16) L 06/07/16 07:40 BUN 18 mg/dL (7-18) 06/07/16 07:40 Creatinine 0.8 mg/dL (0.7-1.3) 06/07/16 07:40 Creat Clearance w eGFR > 60 (>60) 06/07/16 07:40 Calcium 9.8 mg/dL (8.5-10.1) 06/07/16 07:40 Total Bilirubin 0.3 mg/dL (0.2-1.0) 06/07/16 07:40 AST 15 U/L (15-37) D 06/07/16 07:40 ALT 28 U/L (12-78) 06/07/16 07:40 Alkaline Phosphatase 130 U/L (45-117) H 06/07/16 07:40 Total Protein 7.7 g/dl (6.4-8.2) 06/07/16 07:40 Albumin 3.2 g/dl (3.4-5.0) L 06/07/16 07:40 Current Medications Generic Name Dose Route Start Last Admin Trade Name Freq PRN Reason Stop Dose Admin Acetaminophen 650 mg 05/26/16 14:23 06/01/16 01:47 Tylenol Oral Solution - GT 650 mg Q4H PRN Administration FEVER Albuterol/Ipratropium 1 amp 05/02/16 11:51 06/08/16 10:10 Duoneb - NEB 1 amp Q6H PRN Administration SHORTNESS OF BREATH Amlodipine Besylate 10 mg 12/30/15 10:00 06/07/16 11:12 Norvasc - GT 10 mg DAILY KWAKU Administration Guaifenesin 10 ml 12/29/15 10:43 05/16/16 10:16 Robitussin Dm - PO 10 ml Q6H PRN Administration COUGH Insulin Aspart 1 vial 01/28/16 16:30 06/08/16 06:59 Novolog Vial Sliding Scale - SQ Not Given BIDI [facility] Protocol Insulin Detemir 14 units 05/05/16 22:00 06/08/16 00:06 Levemir Vial SQ 14 units HS KWAKU Administration Lactobacillus Acidophilus 1 tab 12/30/15 10:00 06/07/16 11:11 Bacid - PO 1 tab DAILY KWAKU Administration Lisinopril 40 mg 12/30/15 10:00 06/07/16 11:12 Prinivil - GT 40 mg DAILY KWAKU Administration Metoprolol Tartrate 150 mg 12/29/15 22:00 06/08/16 00:05 Lopressor - GT 150 mg BID KWAKU Administration Metoprolol Tartrate 5 mg 12/29/15 10:43 Lopressor Injection - IVPB Q6H PRN HYPERTENSION Multivitamins 5 ml 12/30/15 10:00 06/07/16 11:12 Thera-Plus - GT 5 ml DAILY KWAKU Administration Pantoprazole Sodium 40 mg 12/30/15 10:00 06/07/16 11:11 Protonix Packets For Oral Suspension - GT 40 mg DAILY KWAKU Administration Scopolamine HBr 1 patch 05/20/16 15:45 06/07/16 17:02 Transderm-Scop - TD 1 patch Q72H KWAKU Administration ASSESSMENT/PLAN: Patient is a 75 year old male with PMHx of HTN, IDDM, inguinal hernia who presented to the ED with diverticular bleed s/p right hemicolectomy. 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 Now with hydronephrosis and right sided inguinal hernia UTI - Completed seven-day course of zosyn - repeat UA negative - wbc WNL, afebrile Vomiting - Resolved Hydronephrosis - Per urology, no intervention at this time, continue close monitoring of renal fxn Right inguinal hernia - Per surgery no bowel involvement and no surgery at this time. Continue to monitor. Anoxic brain injury s/p brainstem CVAs - Mental status unchanged - Trach collar - duonebs prn - monitor SpO2 Respiratory failure secondary to anoxic brain injury - Cont trach collar - Duonebs PRN HTN - Cont lisinopril, metoprolol, amlodipine Multiple pressure ulcers - Three Stage III healing pressure sacral - wet to dry dressing DM II - Continue Levemir - ISS BGM ACHS Prophylaxis - SCDs bilaterally - No chemical anticoagulation 2/2 spontaneous gluteal bleed and severe GI bleed - PT CODE STATUS: DNR CODE STATUS: DNR
[2016-06-08] MEDS: LACTOBACILLUS ACIDOPHILUS 1 EACH TAB (FP) PO SCH (11:15)
[2016-06-08] MEDS: amLODIPine BESYLATE 10 MG TABLET (FP) GT SCH (11:15)
[2016-06-08] MEDS: LISINOPRIL 20 MG TABLET (FP) GT SCH (11:15)
[2016-06-08] MEDS: MULTIVITAMINS THERAPEUTIC GT SCH (11:15)
[2016-06-08] MEDS: PANTOPRAZOLE SOD 40 MG SUSPENSION PACKET GT SCH (11:15)
[2016-06-09] MEDS: INSULIN SLIDING SCALE (NOVOLOG) 1 VIAL SQ SCH ×2 (07:33→18:12)
[2016-06-09] MEDS: PANTOPRAZOLE SOD 40 MG SUSPENSION PACKET GT SCH (12:05)
[2016-06-09] MEDS: LISINOPRIL 20 MG TABLET (FP) GT SCH (12:05)
[2016-06-09] MEDS: LACTOBACILLUS ACIDOPHILUS 1 EACH TAB (FP) PO SCH (12:05)
[2016-06-09] MEDS: METOPROLOL TARTRATE 50 MG TABLET (FP) GT SCH ×2 (12:05→21:53)
[2016-06-09] MEDS: amLODIPine BESYLATE 10 MG TABLET (FP) GT SCH (12:06)
[2016-06-09] MEDS: MULTIVITAMINS THERAPEUTIC GT SCH (12:06)
[2016-06-09] MEDS: INSULIN DETEMIR 100 UNITS/ML MDV SQ SCH (21:54)
[2016-06-10] MEDS: INSULIN SLIDING SCALE (NOVOLOG) 1 VIAL SQ SCH ×2 (06:06→17:56)
[2016-06-10] MEDS: MULTIVITAMINS THERAPEUTIC GT SCH (10:21)
[2016-06-10] MEDS: LISINOPRIL 20 MG TABLET (FP) GT SCH (10:24)
[2016-06-10] MEDS: METOPROLOL TARTRATE 50 MG TABLET (FP) GT SCH ×2 (10:24→21:55)
[2016-06-10] MEDS: ACETAMINOPHEN 650 MG/20.3 ML ORAL SOLUTION (CUPS) GT PRN (10:24)
[2016-06-10] MEDS: LACTOBACILLUS ACIDOPHILUS 1 EACH TAB (FP) PO SCH (10:24)
[2016-06-10] MEDS: amLODIPine BESYLATE 10 MG TABLET (FP) GT SCH (10:24)
[2016-06-10] MEDS: PANTOPRAZOLE SOD 40 MG SUSPENSION PACKET GT SCH (10:24)
--- NOTE | 2016-06-10 12:47 | PN ---
Physical Exam: SUBJECTIVE: Patient seen and examined Opens eyes with tactile stimuli but otherwise no response. Nurse reports no new events since fever yesterday, afebrile today. States sputum production is better. OBJECTIVE: Vital Signs 3 Period Temp Pulse Resp BP Sys/Santiago Pulse Ox Last 24 Hr 98.4 F-99.8 F 56-97 20-20 142-162/80-92 95-96 GENERAL: The patient is awake, alert, and fully oriented, in no acute distress. HEAD: Normal with no signs of trauma. EYES: PERRL, extraocular movements intact, sclera anicteric, conjunctiva clear. No ptosis. ENT: Ears normal, nares patent, oropharynx clear without exudates, moist mucous membranes. NECK: Trachea midline, full range of motion, supple. LUNGS: Breath sounds equal, clear to auscultation bilaterally, no wheezes, no crackles, no accessory muscle use. HEART: Regular rate and rhythm, S1, S2 without murmur, rub or gallop. ABDOMEN: Soft, nontender, nondistended, normoactive bowel sounds, no guarding, no rebound, no hepatosplenomegaly, no masses. EXTREMITIES: 2+ pulses, warm, well-perfused, no edema. NEUROLOGICAL: Cranial nerves II through XII grossly intact. Normal speech, gait not observed. PSYCH: Normal mood, normal affect. SKIN: Warm, dry, normal turgor, no rashes or lesions noted Laboratory Results - last 24 hr 3 06/09/16 06/10/16 18:11 05:53 POC Glucometer 148 171 Active Medications 3 Generic Name Dose Route Start Last Admin Trade Name Jaylanq PRN Reason Stop Dose Admin Acetaminophen 650 mg 05/26/16 14:23 06/01/16 01:47 Tylenol Oral Solution - GT 650 mg Q4H PRN Administration FEVER Albuterol/Ipratropium 1 amp 05/02/16 11:51 06/08/16 10:10 Duoneb - NEB 1 amp Q6H PRN Administration SHORTNESS OF BREATH Amlodipine Besylate 10 mg 12/30/15 10:00 06/10/16 10:24 Norvasc - GT 10 mg DAILY KWAKU Administration Guaifenesin 10 ml 12/29/15 10:43 05/16/16 10:16 Robitussin Dm - PO 10 ml Q6H PRN Administration COUGH Insulin Aspart 1 vial 01/28/16 16:30 06/10/16 06:06 Novolog Vial Sliding Scale - SQ 2 units BIDI KWAKU Administration Protocol Insulin Detemir 14 units 05/05/16 22:00 06/09/16 21:54 Levemir Vial SQ 14 units HS KWAKU Administration Lactobacillus Acidophilus 1 tab 12/30/15 10:00 06/10/16 10:24 Bacid - PO 1 tab DAILY KWAKU Administration Lisinopril 40 mg 12/30/15 10:00 06/10/16 10:24 Prinivil - GT 40 mg DAILY KWAKU Administration Metoprolol Tartrate 150 mg 12/29/15 22:00 06/10/16 10:24 Lopressor - GT 150 mg BID KWAKU Administration Metoprolol Tartrate 5 mg 12/29/15 10:43 Lopressor Injection - IVPB Q6H PRN HYPERTENSION Multivitamins 5 ml 12/30/15 10:00 06/10/16 10:21 Thera-Plus - GT 5 ml DAILY KWAKU Administration Pantoprazole Sodium 40 mg 12/30/15 10:00 06/10/16 10:24 Protonix Packets For Oral Suspension - GT 40 mg DAILY KWAKU Administration Scopolamine HBr 1 patch 05/20/16 15:45 06/07/16 17:02 Transderm-Scop - TD 1 patch Q72H KWAKU Administration ASSESSMENT/PLAN: 75 year old male with PMHx of HTN, IDDM, inguinal hernia who presented to the ED with diverticular bleed s/p right hemicolectomy. 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 Completed 7 day course of zosyn for UTI on 06/06/16. UTI - Completed 7 day course zosyn on 06/06, repeat U/a negative, spiked fever 100.4 yesterday. Tmax today 99.3. 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 Jansen on 05/21/16, recommend continued observation unless absolute indication for surgical intervention, none present Right inguinal hernia - incidental finding on CT - no surgical intervention at this time Anoxic brain injury s/p brainstem CVAs - Mental status unchanged Respiratory failure secondary to anoxic brain injury - Cont trach collar - Duonebs PRN HTN - BP well-controlled - Continue lisinopril, metoprolol, amlodipine Multiple pressure ulcers - 3 pressure ulcers, Allevyn in place. Cont weekly wound consult IDDM - Continue Levemir at 14u sq qhs - ISS BGM ACHS, FSBS stable F/E/N - Cont tube feeds. Prophylaxis - SCDs bilaterally - No chemical anticoagulation 2/2 severe GI bleed Visit Type - Emergency Visit Emergency Visit: Yes ED Registration Date: 06/27/15 Care time: The patient presented to the Emergency Department on the above date and was hospitalized for further evaluation of their emergent condition. - New Patient This patient is new to me today: No - Critical Care Critical Care patient: No
[2016-06-10] MEDS: SCOPOLAMINE HYDROBROMIDE 1 PATCH PATCH.TD72 TD SCH (15:58)
[2016-06-10] MEDS: INSULIN DETEMIR 100 UNITS/ML MDV SQ SCH (21:54)
[2016-06-11] MEDS: INSULIN SLIDING SCALE (NOVOLOG) 1 VIAL SQ SCH ×2 (06:12→16:52)
[2016-06-11 09:16] LABS: BASOPHIL 1.1 % (0-2.0); EOSINOPHIL 3.9 % (0-4.5); MCH 27.8 pg (25.7-33.7); MCHC 33.2 g/dl (32.0-35.9); MEAN CELL VOLUME 83.6 fl (80-96); MEAN PLT VOLUME 8.3 fl (7.5-11.1); PLATELET COUNT 253 K/MM3 (134-434); RDW 15.8 % (11.9-15.9); WHITE BLOOD COUNT 8.3 K/mm3 (4.0-10.0)
[2016-06-11] MEDS: METOPROLOL TARTRATE 50 MG TABLET (FP) GT SCH ×2 (09:40→22:33)
[2016-06-11] MEDS: LISINOPRIL 20 MG TABLET (FP) GT SCH (09:40)
[2016-06-11] MEDS: MULTIVITAMINS THERAPEUTIC GT SCH (09:40)
[2016-06-11] MEDS: LACTOBACILLUS ACIDOPHILUS 1 EACH TAB (FP) PO SCH (09:40)
[2016-06-11] MEDS: amLODIPine BESYLATE 10 MG TABLET (FP) GT SCH (09:40)
[2016-06-11] MEDS: PANTOPRAZOLE SOD 40 MG SUSPENSION PACKET GT SCH (09:40)
[2016-06-11 09:41] LABS: CALCIUM 9.7 mg/dL (8.5-10.1); CREATININE 0.9 mg/dL (0.7-1.3)
--- NOTE | 2016-06-11 09:57 | PN ---
Physical Exam: SUBJECTIVE: Patient seen and examined Remains non-verbal,awake. OBJECTIVE: Vital Signs Period Temp Pulse Resp BP Sys/Santiago Pulse Ox Last 24 Hr 98.2 F-99.3 F 74-90 20-20 146-149/83-117 95-98 GENERAL: The patient is awake, non-verbal, HEAD: Normal with no signs of trauma. EYES: PERRL, extraocular movements intact, sclera anicteric, conjunctiva clear. No ptosis. ENT: Ears normal, nares patent, oropharynx clear without exudates, moist mucous membranes. NECK: Trachea midline, s/p tracheotomy intact LUNGS: Trach collar, Breath sounds equal, clear to auscultation bilaterally, no wheezes, no crackles, no accessory muscle use. HEART: Regular rate and rhythm, S1, S2 without murmur, rub or gallop. ABDOMEN: peg tube intact ,Soft, nontender, nondistended, normoactive bowel sounds, no guarding, no rebound, no hepatosplenomegaly, no masses. EXTREMITIES: 2+ pulses, warm, well-perfused, no edema., bilateral foot drop. NEUROLOGICAL:nonfocal PSYCH: Flat affect SKIN: Multiple pressure ulcers sacral - Laboratory Results - last 24 hr 06/10/16 06/11/16 06/11/16 17:55 06:11 08:00 WBC 8.3 RBC 3.63 L Hgb 10.1 L Hct 30.3 L MCV 83.6 MCHC 33.2 RDW 15.8 Plt Count 253 MPV 8.3 Neutrophils % 66.0 Lymphocytes % 24.3 Monocytes % 4.7 Eosinophils % 3.9 Basophils % 1.1 POC Glucometer 152 106 Active Medications Generic Name Dose Route Start Last Admin Trade Name Freq PRN Reason Stop Dose Admin Acetaminophen 650 mg 05/26/16 14:23 06/01/16 01:47 Tylenol Oral Solution - GT 650 mg Q4H PRN Administration FEVER Albuterol/Ipratropium 1 amp 05/02/16 11:51 06/08/16 10:10 Duoneb - NEB 1 amp Q6H PRN Administration SHORTNESS OF BREATH Amlodipine Besylate 10 mg 12/30/15 10:00 06/11/16 09:40 Norvasc - GT 10 mg DAILY KWAKU Administration Guaifenesin 10 ml 12/29/15 10:43 05/16/16 10:16 Robitussin Dm - PO 10 ml Q6H PRN Administration COUGH Insulin Aspart 1 vial 01/28/16 16:30 06/11/16 06:12 Novolog Vial Sliding Scale - SQ Not Given [facility]I [facility] Protocol Insulin Detemir 14 units 05/05/16 22:00 06/10/16 21:54 Levemir Vial SQ 14 units HS KWAKU Administration Lactobacillus Acidophilus 1 tab 12/30/15 10:00 06/11/16 09:40 Bacid - PO 1 tab DAILY KWAKU Administration Lisinopril 40 mg 12/30/15 10:00 06/11/16 09:40 Prinivil - GT 40 mg DAILY KWAKU Administration Metoprolol Tartrate 150 mg 12/29/15 22:00 06/11/16 09:40 Lopressor - GT 150 mg BID KWAKU Administration Metoprolol Tartrate 5 mg 12/29/15 10:43 Lopressor Injection - IVPB Q6H PRN HYPERTENSION Multivitamins 5 ml 12/30/15 10:00 06/11/16 09:40 Thera-Plus - GT 5 ml DAILY KWAKU Administration Pantoprazole Sodium 40 mg 12/30/15 10:00 06/11/16 09:40 Protonix Packets For Oral Suspension - GT 40 mg DAILY KWAKU Administration Scopolamine HBr 1 patch 05/20/16 15:45 06/10/16 15:58 Transderm-Scop - TD 1 patch Q72H KWAKU Administration ASSESSMENT/PLAN: Patient is a 75 year old male with PMHx of HTN, IDDM, inguinal hernia who presented to the ED with diverticular bleed s/p right hemicolectomy. 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 Jansen on 05/21/16, recommend continued observation unless absolute indication for surgical intervention, none present - Per urology, no intervention at this time, continue close monitoring of renal fxn *Right inguinal hernia - Per surgery no bowel involvement and no surgery at this time. Continue to monitor. *Anoxic brain injury s/p brainstem CVA - Mental status unchanged - Trach collar - duonebs prn - monitor SpO2 *Respiratory failure secondary to anoxic brain injury - Cont trach collar - Duonebs PRN *HTN- BP stable - Cont lisinopril, metoprolol, amlodipine * Multiple pressure ulcers - Three Stage III healing pressure sacral - wet to dry dressing - T&P Q2 hrs *DM II - Continue Levemir - ISS BGM ACHS *Prophylaxis - SCDs bilaterally - No chemical anticoagulation 2/2 spontaneous gluteal bleed and severe GI bleed - PT CODE STATUS: DNR Visit Type - Emergency Visit Emergency Visit: No - New Patient This patient is new to me today: No - Critical Care Critical Care patient: No
[2016-06-11] MEDS: INSULIN DETEMIR 100 UNITS/ML MDV SQ SCH (22:31)
[2016-06-12] MEDS: INSULIN SLIDING SCALE (NOVOLOG) 1 VIAL SQ SCH ×2 (06:19→17:10)
[2016-06-12] MEDS: amLODIPine BESYLATE 10 MG TABLET (FP) GT SCH ×2 (10:46→10:51)
[2016-06-12] MEDS: LISINOPRIL 20 MG TABLET (FP) GT SCH ×2 (10:46→10:51)
[2016-06-12] MEDS: METOPROLOL TARTRATE 50 MG TABLET (FP) GT SCH ×3 (10:46→22:10)
[2016-06-12] MEDS: PANTOPRAZOLE SOD 40 MG SUSPENSION PACKET GT SCH (10:46)
[2016-06-12] MEDS: LACTOBACILLUS ACIDOPHILUS 1 EACH TAB (FP) PO SCH (10:47)
[2016-06-12] MEDS: MULTIVITAMINS THERAPEUTIC GT SCH (10:47)
--- NOTE | 2016-06-12 17:49 | PN ---
Progress Note (short form) - Note Progress Note: Subjective: Pt seen and examined at bedside. He is non-verbal. Not following commands at this time Current Medications Generic Name Dose Route Start Last Admin Trade Name Freq PRN Reason Stop Dose Admin Acetaminophen 650 mg 05/26/16 14:23 06/01/16 01:47 Tylenol Oral Solution - GT 650 mg Q4H PRN Administration FEVER Albuterol/Ipratropium 1 amp 05/02/16 11:51 06/08/16 10:10 Duoneb - NEB 1 amp Q6H PRN Administration SHORTNESS OF BREATH Amlodipine Besylate 10 mg 12/30/15 10:00 06/12/16 10:51 Norvasc - GT Not Given DAILY KWAKU Guaifenesin 10 ml 12/29/15 10:43 05/16/16 10:16 Robitussin Dm - PO 10 ml Q6H PRN Administration COUGH Insulin Aspart 1 vial 01/28/16 16:30 06/12/16 17:10 Novolog Vial Sliding Scale - SQ Not Given BIDI [facility] Protocol Insulin Detemir 14 units 05/05/16 22:00 06/11/16 22:31 Levemir Vial SQ 14 units HS KWAKU Administration Lactobacillus Acidophilus 1 tab 12/30/15 10:00 06/12/16 10:47 Bacid - PO 1 tab DAILY KWAKU Administration Lisinopril 40 mg 12/30/15 10:00 06/12/16 10:51 Prinivil - GT Not Given DAILY KWAKU Metoprolol Tartrate 150 mg 12/29/15 22:00 06/12/16 10:51 Lopressor - GT Not Given BID KWAKU Metoprolol Tartrate 5 mg 12/29/15 10:43 Lopressor Injection - IVPB Q6H PRN HYPERTENSION Multivitamins 5 ml 12/30/15 10:00 06/12/16 10:47 Thera-Plus - GT 5 ml DAILY KWAKU Administration Pantoprazole Sodium 40 mg 12/30/15 10:00 06/12/16 10:46 Protonix Packets For Oral Suspension - GT 40 mg DAILY KWAKU Administration Scopolamine HBr 1 patch 05/20/16 15:45 06/10/16 15:58 Transderm-Scop - TD 1 patch Q72H KWAKU Administration Objective: Vital Signs Period Temp Pulse Resp BP Sys/Santiago Pulse Ox Last 24 Hr 98.8 F-99.4 F 69-88 18-22 99-145/52-92 94-98 Physical Exam: General: No acute distress Neuro: Eye tracking to verbal stimulus Pulm: Tach collar, rhonchi throughout CV: RRR, S1S2 Abd: Soft, non-distended. Normoactive bowel sounds. Peg tube c/d/i Ext: Warm, well-perfused. 2+ DP/PT bilaterally CBCD WBC 8.3 K/mm3 (4.0-10.0) 06/11/16 08:00 RBC 3.63 M/mm3 (4.00-5.60) L 06/11/16 08:00 Hgb 10.1 GM/dL (11.7-16.9) L 06/11/16 08:00 Hct 30.3 % (35.4-49) L 06/11/16 08:00 MCV 83.6 fl (80-96) 06/11/16 08:00 MCHC 33.2 g/dl (32.0-35.9) 06/11/16 08:00 RDW 15.8 % (11.9-15.9) 06/11/16 08:00 Plt Count 253 K/MM3 (134-434) 06/11/16 08:00 MPV 8.3 fl (7.5-11.1) 06/11/16 08:00 CMP Sodium 140 mmol/L (136-145) 06/11/16 08:00 Potassium 3.9 mmol/L (3.5-5.1) 06/11/16 08:00 Chloride 103 mmol/L (98-107) 06/11/16 08:00 Carbon Dioxide 30 mmol/L (21-32) 06/11/16 08:00 Anion Gap 7 (8-16) L 06/11/16 08:00 BUN 22 mg/dL (7-18) H D 06/11/16 08:00 Creatinine 0.9 mg/dL (0.7-1.3) 06/11/16 08:00 Creat Clearance w eGFR > 60 (>60) 06/07/16 07:40 Random Glucose 133 mg/dL (74-106) H 06/11/16 08:00 Calcium 9.7 mg/dL (8.5-10.1) 06/11/16 08:00 Total Bilirubin 0.3 mg/dL (0.2-1.0) 06/07/16 07:40 AST 15 U/L (15-37) D 06/07/16 07:40 ALT 28 U/L (12-78) 06/07/16 07:40 Alkaline Phosphatase 130 U/L (45-117) H 06/07/16 07:40 Total Protein 7.7 g/dl (6.4-8.2) 06/07/16 07:40 Albumin 3.2 g/dl (3.4-5.0) L 06/07/16 07:40 CARDIAC ENZYMES Creatine Kinase 62 IU/L (38-174) 06/28/15 09:35 Troponin I 0.07 ng/ml (0.03-0.5) D 07/09/15 05:00 Microbiology 06/06/16 13:10 Urine - Urine - Catheterized Urine Culture - Final NO GROWTH OBTAINED 05/30/16 21:30 Stool Clostridium difficile Antigen (MACHO) - Final 05/30/16 21:30 Stool Clostridium difficile Toxin Assay - Final Assessment: 75 year old male with PMHx of HTN, IDDM, inguinal hernia who presented to the ED with diverticular bleed s/p Righ hemicolectomy with 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 Plan: 1. Anoxic brain injury s/p brainstem CVAs - Mental status unchanged 2. Respiratory failure secondary to anoxic brain injury - Cont trach collar - Duonebs PRN 3. HTN - Continue lisinopril, metoprolol, amlodipine 4. Multiple pressure ulcers - Turn and position q2h 5. IDDM - Continue Levemir at 14u sq qhs - ISS BGM ACHS 6. F/E/N: - Tube feeds 7. Prophylaxis: - SCDs bilaterally - No chemical anticoagulation 2/2 spontaneous gluteal bleed and severe GI bleed - PT CODE STATUS: DNR
[2016-06-12] MEDS: INSULIN DETEMIR 100 UNITS/ML MDV SQ SCH (22:10)
[2016-06-13] MEDS: INSULIN SLIDING SCALE (NOVOLOG) 1 VIAL SQ SCH ×2 (06:46→18:07)
[2016-06-13] MEDS: PANTOPRAZOLE SOD 40 MG SUSPENSION PACKET GT SCH (11:03)
[2016-06-13] MEDS: amLODIPine BESYLATE 10 MG TABLET (FP) GT SCH (11:04)
[2016-06-13] MEDS: MULTIVITAMINS THERAPEUTIC GT SCH (11:04)
--- NOTE | 2016-06-13 11:04 | PN ---
Progress Note (short form) - Note Progress Note: Subjective: Pt seen and examined at bedside. He is non-verbal. Not following commands at this time Current Medications Generic Name Dose Route Start Last Admin Trade Name Freq PRN Reason Stop Dose Admin Acetaminophen 650 mg 05/26/16 14:23 06/01/16 01:47 Tylenol Oral Solution - GT 650 mg Q4H PRN Administration FEVER Albuterol/Ipratropium 1 amp 05/02/16 11:51 06/08/16 10:10 Duoneb - NEB 1 amp Q6H PRN Administration SHORTNESS OF BREATH Amlodipine Besylate 10 mg 12/30/15 10:00 06/12/16 10:51 Norvasc - GT Not Given DAILY KWAKU Guaifenesin 10 ml 12/29/15 10:43 05/16/16 10:16 Robitussin Dm - PO 10 ml Q6H PRN Administration COUGH Insulin Aspart 1 vial 01/28/16 16:30 06/13/16 06:46 Novolog Vial Sliding Scale - SQ Not Given BIDI [facility] Protocol Insulin Detemir 14 units 05/05/16 22:00 06/12/16 22:10 Levemir Vial SQ 14 units HS KWAKU Administration Lactobacillus Acidophilus 1 tab 12/30/15 10:00 06/12/16 10:47 Bacid - PO 1 tab DAILY KWAKU Administration Lisinopril 40 mg 12/30/15 10:00 06/12/16 10:51 Prinivil - GT Not Given DAILY KWAKU Metoprolol Tartrate 150 mg 12/29/15 22:00 06/12/16 22:10 Lopressor - GT 150 mg BID WKAKU Administration Metoprolol Tartrate 5 mg 12/29/15 10:43 Lopressor Injection - IVPB Q6H PRN HYPERTENSION Multivitamins 5 ml 12/30/15 10:00 06/12/16 10:47 Thera-Plus - GT 5 ml DAILY KWAKU Administration Pantoprazole Sodium 40 mg 12/30/15 10:00 06/12/16 10:46 Protonix Packets For Oral Suspension - GT 40 mg DAILY KWAKU Administration Scopolamine HBr 1 patch 05/20/16 15:45 06/10/16 15:58 Transderm-Scop - TD 1 patch Q72H KWAKU Administration Objective: Vital Signs Period Temp Pulse Resp BP Sys/Santiago Pulse Ox Last 24 Hr 98.8 F-99.8 F 71-88 20-22 112-138/68-92 98 Physical Exam: General: No acute distress Neuro: Eye tracking to verbal stimulus Pulm: Tach collar, CTA anteriorly CV: RRR, S1S2 Abd: Soft, non-distended. Normoactive bowel sounds. Peg tube c/d/i Ext: Warm, well-perfused. 2+ DP/PT bilaterally CBCD WBC 8.3 K/mm3 (4.0-10.0) 06/11/16 08:00 RBC 3.63 M/mm3 (4.00-5.60) L 06/11/16 08:00 Hgb 10.1 GM/dL (11.7-16.9) L 06/11/16 08:00 Hct 30.3 % (35.4-49) L 06/11/16 08:00 MCV 83.6 fl (80-96) 06/11/16 08:00 MCHC 33.2 g/dl (32.0-35.9) 06/11/16 08:00 RDW 15.8 % (11.9-15.9) 06/11/16 08:00 Plt Count 253 K/MM3 (134-434) 06/11/16 08:00 MPV 8.3 fl (7.5-11.1) 06/11/16 08:00 CMP Sodium 140 mmol/L (136-145) 06/11/16 08:00 Potassium 3.9 mmol/L (3.5-5.1) 06/11/16 08:00 Chloride 103 mmol/L (98-107) 06/11/16 08:00 Carbon Dioxide 30 mmol/L (21-32) 06/11/16 08:00 Anion Gap 7 (8-16) L 06/11/16 08:00 BUN 22 mg/dL (7-18) H D 06/11/16 08:00 Creatinine 0.9 mg/dL (0.7-1.3) 06/11/16 08:00 Creat Clearance w eGFR > 60 (>60) 06/07/16 07:40 Random Glucose 133 mg/dL (74-106) H 06/11/16 08:00 Calcium 9.7 mg/dL (8.5-10.1) 08/14/16 08:00 Total Bilirubin 0.3 mg/dL (0.2-1.0) 06/07/16 07:40 AST 15 U/L (15-37) D 06/07/16 07:40 ALT 28 U/L (12-78) 06/07/16 07:40 Alkaline Phosphatase 130 U/L (45-117) H 06/07/16 07:40 Total Protein 7.7 g/dl (6.4-8.2) 06/07/16 07:40 Albumin 3.2 g/dl (3.4-5.0) L 06/07/16 07:40 CARDIAC ENZYMES Creatine Kinase 62 IU/L (38-174) 06/28/15 09:35 Troponin I 0.07 ng/ml (0.03-0.5) D 07/09/15 05:00 Microbiology 06/06/16 13:10 Urine - Urine - Catheterized Urine Culture - Final NO GROWTH OBTAINED 05/30/16 21:30 Stool Clostridium difficile Antigen (MACHO) - Final 05/30/16 21:30 Stool Clostridium difficile Toxin Assay - Final Assessment: 75 year old male with PMHx of HTN, IDDM, inguinal hernia who presented to the ED with diverticular bleed s/p Righ hemicolectomy with 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 Plan: 1. Anoxic brain injury s/p brainstem CVAs - Mental status unchanged 2. Respiratory failure secondary to anoxic brain injury - Cont trach collar - Duonebs PRN 3. HTN - Continue lisinopril, metoprolol, amlodipine 4. Multiple pressure ulcers - Turn and position q2h 5. IDDM - Continue Levemir at 14u sq qhs - ISS BGM ACHS 6. F/E/N: - Tube feeds 7. Prophylaxis: - SCDs bilaterally - No chemical anticoagulation 2/2 spontaneous gluteal bleed and severe GI bleed - PT CODE STATUS: DNR
[2016-06-13] MEDS: LISINOPRIL 20 MG TABLET (FP) GT SCH (11:05)
[2016-06-13] MEDS: METOPROLOL TARTRATE 50 MG TABLET (FP) GT SCH (11:05)
[2016-06-13] MEDS: LACTOBACILLUS ACIDOPHILUS 1 EACH TAB (FP) PO SCH (11:06)
[2016-06-13] MEDS: SCOPOLAMINE HYDROBROMIDE 1 PATCH PATCH.TD72 TD SCH (15:23)
[2016-06-14] MEDS: INSULIN DETEMIR 100 UNITS/ML MDV SQ SCH ×2 (00:28→21:58)
[2016-06-14] MEDS: METOPROLOL TARTRATE 50 MG TABLET (FP) GT SCH ×3 (00:29→21:57)
[2016-06-14] MEDS: INSULIN SLIDING SCALE (NOVOLOG) 1 VIAL SQ SCH ×2 (06:49→17:30)
[2016-06-14 07:46] LABS: EOSINOPHIL 5.5 % (0-4.5); MCH 28.1 pg (25.7-33.7); MCHC 33.6 g/dl (32.0-35.9); MEAN CELL VOLUME 83.6 fl (80-96); MEAN PLT VOLUME 8.6 fl (7.5-11.1); NEUTROPHILS 53.8 % (42.8-82.8); PLATELET COUNT 205 K/MM3 (134-434); RDW 15.8 % (11.9-15.9); WHITE BLOOD COUNT 6.6 K/mm3 (4.0-10.0)
[2016-06-14] MEDS: AMINO ACIDS/PROTEIN HYDROLYS SUGAR-FREE 30 ML PACKET PO SCH ×2 (08:00→17:30)
[2016-06-14 08:30] LABS: ALBUMIN 3.5 g/dl (3.4-5.0); ALK PHOS 127 U/L (45-117); ANION GAP 9 (8-16); BILIRUBIN,TOTAL 0.5 mg/dL (0.2-1.0); CALCIUM 9.9 mg/dL (8.5-10.1); CO2 29 mmol/L (21-32); CREATININE 0.8 mg/dL (0.7-1.3); GLUCOSE,RANDOM 119 mg/dL (74-106); MAGNESIUM 2.3 mg/dL (1.8-2.4); PHOSPHOROUS 3.4 mg/dL (2.5-4.9); SGOT/AST 21 U/L (15-37); SGPT/ALT 39 U/L (12-78); TOT PROT 7.9 g/dl (6.4-8.2)
--- NOTE | 2016-06-14 09:32 | PN ---
Progress Note (short form) - Note Progress Note: Subjective: Pt seen and examined at bedside. He is non-verbal. Not following commands at this time Current Medications Generic Name Dose Route Start Last Admin Trade Name Ginette PRN Reason Stop Dose Admin Acetaminophen 650 mg 05/26/16 14:23 06/01/16 01:47 Tylenol Oral Solution - GT 650 mg Q4H PRN Administration FEVER Albuterol/Ipratropium 1 amp 05/02/16 11:51 06/08/16 10:10 Duoneb - NEB 1 amp Q6H PRN Administration SHORTNESS OF BREATH Amino Acids 30 ml 06/14/16 08:00 Prostat Sugar-Free Packet - PO BID@0800,1730 KWAKU Amlodipine Besylate 10 mg 12/30/15 10:00 06/13/16 11:04 Norvasc - GT 10 mg DAILY KWAKU Administration Guaifenesin 10 ml 12/29/15 10:43 05/16/16 10:16 Robitussin Dm - PO 10 ml Q6H PRN Administration COUGH Insulin Aspart 1 vial 01/28/16 16:30 06/14/16 06:49 Novolog Vial Sliding Scale - SQ Not Given BIDI [facility] Protocol Insulin Detemir 14 units 05/05/16 22:00 06/14/16 00:28 Levemir Vial SQ 14 units HS KWAKU Administration Lactobacillus Acidophilus 1 tab 12/30/15 10:00 06/13/16 11:06 Bacid - PO 1 tab DAILY KWAKU Administration Lisinopril 40 mg 12/30/15 10:00 06/13/16 11:05 Prinivil - GT 40 mg DAILY KWAKU Administration Metoprolol Tartrate 150 mg 12/29/15 22:00 06/14/16 00:29 Lopressor - GT 150 mg BID KWAKU Administration Metoprolol Tartrate 5 mg 12/29/15 10:43 Lopressor Injection - IVPB Q6H PRN HYPERTENSION Multivitamins 5 ml 12/30/15 10:00 06/13/16 11:04 Thera-Plus - GT 5 ml DAILY KWAKU Administration Pantoprazole Sodium 40 mg 12/30/15 10:00 06/13/16 11:03 Protonix Packets For Oral Suspension - GT 40 mg DAILY KWAKU Administration Scopolamine HBr 1 patch 05/20/16 15:45 06/13/16 15:23 Transderm-Scop - TD 1 patch Q72H KWAKU Administration Objective: Vital Signs Period Temp Pulse Resp BP Sys/Santiago Pulse Ox Last 24 Hr 100.1 F-102 F 62-87 20-22 124-160/76-89 97-98 Physical Exam: General: No acute distress Neuro: Eye tracking to verbal stimulus Pulm: Tach collar, CTA anteriorly CV: RRR, S1S2 Abd: Soft, non-distended. Normoactive bowel sounds. Peg tube c/d/i Ext: Warm, well-perfused. 2+ DP/PT bilaterally CBCD WBC 6.6 K/mm3 (4.0-10.0) 06/14/16 07:10 RBC 3.68 M/mm3 (4.00-5.60) L 06/14/16 07:10 Hgb 10.3 GM/dL (11.7-16.9) L 06/14/16 07:10 Hct 30.8 % (35.4-49) L 06/14/16 07:10 MCV 83.6 fl (80-96) 06/14/16 07:10 MCHC 33.6 g/dl (32.0-35.9) 06/14/16 07:10 RDW 15.8 % (11.9-15.9) 06/14/16 07:10 Plt Count 205 K/MM3 (134-434) 06/14/16 07:10 MPV 8.6 fl (7.5-11.1) 06/14/16 07:10 CMP Sodium 142 mmol/L (136-145) 06/14/16 07:10 Potassium 3.8 mmol/L (3.5-5.1) 06/14/16 07:10 Chloride 104 mmol/L (98-107) 06/14/16 07:10 Carbon Dioxide 29 mmol/L (21-32) 06/14/16 07:10 Anion Gap 9 (8-16) 06/14/16 07:10 BUN 20 mg/dL (7-18) H 06/14/16 07:10 Creatinine 0.8 mg/dL (0.7-1.3) 06/14/16 07:10 Creat Clearance w eGFR > 60 (>60) 06/14/16 07:10 Random Glucose 119 mg/dL (74-106) H 06/14/16 07:10 Calcium 9.9 mg/dL (8.5-10.1) 06/14/16 07:10 Total Bilirubin 0.5 mg/dL (0.2-1.0) D 06/14/16 07:10 AST 21 U/L (15-37) D 06/14/16 07:10 ALT 39 U/L (12-78) D 06/14/16 07:10 Alkaline Phosphatase 127 U/L (45-117) H 06/14/16 07:10 Total Protein 7.9 g/dl (6.4-8.2) 06/14/16 07:10 Albumin 3.5 g/dl (3.4-5.0) 06/14/16 07:10 CARDIAC ENZYMES Creatine Kinase 62 IU/L (38-174) 06/28/15 09:35 Troponin I 0.07 ng/ml (0.03-0.5) D 07/09/15 05:00 Microbiology 06/06/16 13:10 Urine - Urine - Catheterized Urine Culture - Final NO GROWTH OBTAINED 05/30/16 21:30 Stool Clostridium difficile Antigen (MACHO) - Final 05/30/16 21:30 Stool Clostridium difficile Toxin Assay - Final Assessment: 75 year old male with PMHx of HTN, IDDM, inguinal hernia who presented to the ED with diverticular bleed s/p Righ hemicolectomy with 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 Plan: 1. Febrile - Tmax 102 - WBC wnl - F/u blood cultures, ua, urine culture, check x-ray, sputum culture - Reconsult ID 2. Anoxic brain injury s/p brainstem CVAs - Mental status unchanged 3. Respiratory failure secondary to anoxic brain injury - Cont trach collar - Duonebs PRN 4. HTN - Continue lisinopril, metoprolol, amlodipine 5. Multiple pressure ulcers - Turn and position q2h 6. IDDM - Continue Levemir at 14u sq qhs - ISS BGM ACHS 7. F/E/N: - Tube feeds 8. Prophylaxis: - SCDs bilaterally - No chemical anticoagulation 2/2 spontaneous gluteal bleed and severe GI bleed - PT CODE STATUS: DNR
[2016-06-14] MEDS: amLODIPine BESYLATE 10 MG TABLET (FP) GT SCH (10:57)
[2016-06-14] MEDS: LISINOPRIL 20 MG TABLET (FP) GT SCH (10:57)
[2016-06-14] MEDS: LACTOBACILLUS ACIDOPHILUS 1 EACH TAB (FP) PO SCH (10:57)
[2016-06-14] MEDS: PANTOPRAZOLE SOD 40 MG SUSPENSION PACKET GT SCH (10:57)
[2016-06-14] MEDS: MULTIVITAMINS THERAPEUTIC GT SCH (10:58)
--- NOTE | 2016-06-14 14:56 | PN ---
Progress Note (short form) - Note Progress Note: opens eyes hemodynamically stable fevers overnight Vital Signs Period Temp Pulse Resp BP Sys/Santiago Pulse Ox Last 24 Hr 100.1 F-102 F 62-87 20-22 124-160/76-80 96-97 trach cor-rrr lungs rhonchi scattered abd soft, +gt site clean sacrum- clean ulcer stage 2 ext no edema CBC, BMP 06/14/16 07:10 06/14/16 07:10 Microbiology 06/14/16 12:05 Gram Stain - Final Ulcer 06/14/16 12:05 Gram Stain - Final Sputum - Endotracheal Suction W/O Vent cxray no focal infiltrate a/p fever- hemodynamically stable f/u cultures, check postvoid residual observe off antibiotics for now hemodynamically stable normal WBC d/w hospitalist service
[2016-06-14 15:38] LABS: URINE APPEARANCE SLCLOUDY; URINE BILIRUBIN NEGATIVE (NEGATIVE); URINE BLOOD NEGATIVE (NEGATIVE); URINE COLOR YELLOW; URINE GLUCOSE (UA) NEGATIVE (NEGATIVE); URINE KETONE NEGATIVE (NEGATIVE); URINE LEUK ESTERASE NEGATIVE (NEGATIVE); URINE NITRITE NEGATIVE (NEGATIVE); URINE PROTEIN NEGATIVE (NEGATIVE); URINE UROBILINOGEN NEGATIVE E.U./dl (0.2-1.0)
[2016-06-15] MEDS: INSULIN SLIDING SCALE (NOVOLOG) 1 VIAL SQ SCH ×2 (06:36→17:47)
[2016-06-15] MEDS: AMINO ACIDS/PROTEIN HYDROLYS SUGAR-FREE 30 ML PACKET PO SCH ×2 (08:56→17:47)
[2016-06-15] MEDS: LACTOBACILLUS ACIDOPHILUS 1 EACH TAB (FP) PO SCH (09:02)
[2016-06-15] MEDS: amLODIPine BESYLATE 10 MG TABLET (FP) GT SCH (09:02)
[2016-06-15] MEDS: MULTIVITAMINS THERAPEUTIC GT SCH (09:02)
[2016-06-15] MEDS: PANTOPRAZOLE SOD 40 MG SUSPENSION PACKET GT SCH (09:02)
[2016-06-15] MEDS: LISINOPRIL 20 MG TABLET (FP) GT SCH (09:02)
[2016-06-15] MEDS: METOPROLOL TARTRATE 50 MG TABLET (FP) GT SCH ×2 (09:03→21:21)
--- NOTE | 2016-06-15 13:28 | PN ---
Progress Note (short form) - Note Progress Note: Hospitalist Progress Note This patient presented to the emergency department and was admitted for further evaluation of their emergent condition. SUBJECTIVE: Patient is nonverbal. Not following commands OBJECTIVE: Vital Signs Period Temp Pulse Resp BP Sys/Santiago Pulse Ox Last 24 Hr 98.5 F-99.4 F 66-85 20-22 136-165/67-110 96-96 General: No acute distress Neuro: Eye tracking to verbal stimulus Pulm: Tach collar, CTA anteriorly CV: RRR, S1S2 Abd: Soft, non-distended. Normoactive bowel sounds. Peg tube c/d/i Ext: Warm, well-perfused. 2+ DP/PT bilaterally CBCD WBC 6.6 K/mm3 (4.0-10.0) 06/14/16 07:10 RBC 3.68 M/mm3 (4.00-5.60) L 06/14/16 07:10 Hgb 10.3 GM/dL (11.7-16.9) L 06/14/16 07:10 Hct 30.8 % (35.4-49) L 06/14/16 07:10 MCV 83.6 fl (80-96) 06/14/16 07:10 MCHC 33.6 g/dl (32.0-35.9) 06/14/16 07:10 RDW 15.8 % (11.9-15.9) 06/14/16 07:10 Plt Count 205 K/MM3 (134-434) 06/14/16 07:10 MPV 8.6 fl (7.5-11.1) 06/14/16 07:10 CMP Sodium 142 mmol/L (136-145) 06/14/16 07:10 Potassium 3.8 mmol/L (3.5-5.1) 06/14/16 07:10 Chloride 104 mmol/L (98-107) 06/14/16 07:10 Carbon Dioxide 29 mmol/L (21-32) 06/14/16 07:10 Anion Gap 9 (8-16) 06/14/16 07:10 BUN 20 mg/dL (7-18) H 06/14/16 07:10 Creatinine 0.8 mg/dL (0.7-1.3) 06/14/16 07:10 Creat Clearance w eGFR > 60 (>60) 06/14/16 07:10 Calcium 9.9 mg/dL (8.5-10.1) 06/14/16 07:10 Total Bilirubin 0.5 mg/dL (0.2-1.0) D 06/14/16 07:10 AST 21 U/L (15-37) D 06/14/16 07:10 ALT 39 U/L (12-78) D 06/14/16 07:10 Alkaline Phosphatase 127 U/L (45-117) H 06/14/16 07:10 Total Protein 7.9 g/dl (6.4-8.2) 06/14/16 07:10 Albumin 3.5 g/dl (3.4-5.0) 06/14/16 07:10 Current Medications Generic Name Dose Route Start Last Admin Trade Name Freq PRN Reason Stop Dose Admin Acetaminophen 650 mg 05/26/16 14:23 06/01/16 01:47 Tylenol Oral Solution - GT 650 mg Q4H PRN Administration FEVER Albuterol/Ipratropium 1 amp 05/02/16 11:51 06/08/16 10:10 Duoneb - NEB 1 amp Q6H PRN Administration SHORTNESS OF BREATH Amino Acids 30 ml 06/14/16 08:00 06/15/16 08:56 Prostat Sugar-Free Packet - PO 30 ml BID@0800,1730 KWAKU Administration Amlodipine Besylate 10 mg 12/30/15 10:00 06/15/16 09:02 Norvasc - GT 10 mg DAILY KWAKU Administration Guaifenesin 10 ml 12/29/15 10:43 05/16/16 10:16 Robitussin Dm - PO 10 ml Q6H PRN Administration COUGH Insulin Aspart 1 vial 01/28/16 16:30 06/15/16 06:36 Novolog Vial Sliding Scale - SQ Not Given BIDI [facility] Protocol Insulin Detemir 14 units 05/05/16 22:00 06/14/16 21:58 Levemir Vial SQ 14 units HS KWAKU Administration Lactobacillus Acidophilus 1 tab 12/30/15 10:00 06/15/16 09:02 Bacid - PO 1 tab DAILY KWAKU Administration Lisinopril 40 mg 12/30/15 10:00 06/15/16 09:02 Prinivil - GT 40 mg DAILY KWAKU Administration Metoprolol Tartrate 150 mg 12/29/15 22:00 06/15/16 09:03 Lopressor - GT 150 mg BID KWAKU Administration Metoprolol Tartrate 5 mg 12/29/15 10:43 Lopressor Injection - IVPB Q6H PRN HYPERTENSION Multivitamins 5 ml 12/30/15 10:00 06/15/16 09:02 Thera-Plus - GT 5 ml DAILY KWAKU Administration Pantoprazole Sodium 40 mg 12/30/15 10:00 06/15/16 09:02 Protonix Packets For Oral Suspension - GT 40 mg DAILY KWAKU Administration Scopolamine HBr 1 patch 05/20/16 15:45 06/13/16 15:23 Transderm-Scop - TD 1 patch Q72H KWAKU Administration Microbiology 06/14/16 12:05 Gram Stain - Final Sputum - Endotracheal Suction W/O Vent Sputum Culture - Preliminary Non Lactose Fermenting Gnb Non Lactose Fermenting Gnb#2 06/14/16 11:13 Blood Culture - Preliminary Blood - Peripheral Venous NO GROWTH OBTAINED AFTER 24 HOURS, INCUBATION TO CONTINUE FOR 4 DAYS. 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 Febrile - Tmax 102, afebrile overnight - WBC wnl - F/u blood cultures, urine culture, check x-ray, sputum culture - urien culture resent because of contamination - ID consult appreciated Anoxic brain injury s/p brainstem CVAs - Mental status unchanged Respiratory failure secondary to anoxic brain injury - Cont trach collar - Duonebs PRN - suctioning prn HTN - Continue lisinopril, metoprolol, amlodipine Multiple pressure ulcers - Turn and position q2h IDDM - Continue Levemir sq qhs - ISS BGM ACHS F/E/N: - Tube feeds Prophylaxis: - SCDs bilaterally - No chemical anticoagulation 2/2 spontaneous gluteal bleed and severe GI bleed - PT
[2016-06-15] MEDS: INSULIN DETEMIR 100 UNITS/ML MDV SQ SCH (21:21)
[2016-06-16] MEDS: INSULIN SLIDING SCALE (NOVOLOG) 1 VIAL SQ SCH ×2 (06:15→17:15)
[2016-06-16] MEDS: AMINO ACIDS/PROTEIN HYDROLYS SUGAR-FREE 30 ML PACKET PO SCH ×2 (08:08→17:22)
--- NOTE | 2016-06-16 09:51 | PN ---
Progress Note (short form) - Note Progress Note: Hospitalist Progress Note This patient presented to the emergency department and was admitted for further evaluation of their emergent condition. SUBJECTIVE: Patient is nonverbal. Not following commands. OBJECTIVE: Vital Signs Period Temp Pulse Resp BP Sys/Santiago Pulse Ox Last 24 Hr 98.4 F-99 F 65-92 20-22 128-152/73-110 96-96 General: No acute distress Neuro: Eye tracking to verbal stimulus Pulm: Tach collar, CTA anteriorly CV: RRR, S1S2 Abd: Soft, non-distended. Normoactive bowel sounds. Peg tube c/d/i Ext: Warm, well-perfused. 2+ DP/PT bilaterally CBCD WBC 6.6 K/mm3 (4.0-10.0) 06/14/16 07:10 RBC 3.68 M/mm3 (4.00-5.60) L 06/14/16 07:10 Hgb 10.3 GM/dL (11.7-16.9) L 06/14/16 07:10 Hct 30.8 % (35.4-49) L 06/14/16 07:10 MCV 83.6 fl (80-96) 06/14/16 07:10 MCHC 33.6 g/dl (32.0-35.9) 06/14/16 07:10 RDW 15.8 % (11.9-15.9) 06/14/16 07:10 Plt Count 205 K/MM3 (134-434) 06/14/16 07:10 MPV 8.6 fl (7.5-11.1) 06/14/16 07:10 CMP Sodium 142 mmol/L (136-145) 06/14/16 07:10 Potassium 3.8 mmol/L (3.5-5.1) 06/14/16 07:10 Chloride 104 mmol/L (98-107) 06/14/16 07:10 Carbon Dioxide 29 mmol/L (21-32) 06/14/16 07:10 Anion Gap 9 (8-16) 06/14/16 07:10 BUN 20 mg/dL (7-18) H 06/14/16 07:10 Creatinine 0.8 mg/dL (0.7-1.3) 06/14/16 07:10 Creat Clearance w eGFR > 60 (>60) 06/14/16 07:10 Calcium 9.9 mg/dL (8.5-10.1) 06/14/16 07:10 Total Bilirubin 0.5 mg/dL (0.2-1.0) D 06/14/16 07:10 AST 21 U/L (15-37) D 06/14/16 07:10 ALT 39 U/L (12-78) D 06/14/16 07:10 Alkaline Phosphatase 127 U/L (45-117) H 06/14/16 07:10 Total Protein 7.9 g/dl (6.4-8.2) 06/14/16 07:10 Albumin 3.5 g/dl (3.4-5.0) 06/14/16 07:10 Current Medications Generic Name Dose Route Start Last Admin Trade Name Freq PRN Reason Stop Dose Admin Acetaminophen 650 mg 05/26/16 14:23 06/01/16 01:47 Tylenol Oral Solution - GT 650 mg Q4H PRN Administration FEVER Albuterol/Ipratropium 1 amp 05/02/16 11:51 06/08/16 10:10 Duoneb - NEB 1 amp Q6H PRN Administration SHORTNESS OF BREATH Amino Acids 30 ml 06/14/16 08:00 06/16/16 08:08 Prostat Sugar-Free Packet - PO 30 ml BID@0800,1730 KWAKU Administration Amlodipine Besylate 10 mg 12/30/15 10:00 06/15/16 09:02 Norvasc - GT 10 mg DAILY KWAKU Administration Guaifenesin 10 ml 12/29/15 10:43 05/16/16 10:16 Robitussin Dm - PO 10 ml Q6H PRN Administration COUGH Insulin Aspart 1 vial 01/28/16 16:30 06/16/16 06:15 Novolog Vial Sliding Scale - SQ Not Given BIDI [facility] Protocol Insulin Detemir 14 units 05/05/16 22:00 06/15/16 21:21 Levemir Vial SQ 14 units HS KWAKU Administration Lactobacillus Acidophilus 1 tab 12/30/15 10:00 06/15/16 09:02 Bacid - PO 1 tab DAILY KWAKU Administration Lisinopril 40 mg 12/30/15 10:00 06/15/16 09:02 Prinivil - GT 40 mg DAILY KWAKU Administration Metoprolol Tartrate 150 mg 12/29/15 22:00 06/15/16 21:21 Lopressor - GT 150 mg BID KWAKU Administration Metoprolol Tartrate 5 mg 12/29/15 10:43 Lopressor Injection - IVPB Q6H PRN HYPERTENSION Multivitamins 5 ml 12/30/15 10:00 06/15/16 09:02 Thera-Plus - GT 5 ml DAILY KWAKU Administration Pantoprazole Sodium 40 mg 12/30/15 10:00 06/15/16 09:02 Protonix Packets For Oral Suspension - GT 40 mg DAILY KWAKU Administration Scopolamine HBr 1 patch 05/20/16 15:45 06/13/16 15:23 Transderm-Scop - TD 1 patch Q72H KWAKU Administration Microbiology 06/14/16 12:05 Gram Stain - Final Sputum - Endotracheal Suction W/O Vent Sputum Culture - Preliminary Non Lactose Fermenting Gnb Non Lactose Fermenting Gnb#2 06/14/16 11:13 Blood Culture - Preliminary Blood - Peripheral Venous NO GROWTH OBTAINED AFTER 24 HOURS, INCUBATION TO CONTINUE FOR 4 DAYS. 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 Febrile - resolved - WBC wnl - F/u blood cultures, urine culture, check x-ray, sputum culture - urine culture resent because of contamination - ID consult appreciated Anoxic brain injury s/p brainstem CVAs - Mental status unchanged Respiratory failure secondary to anoxic brain injury - Cont trach collar - Duonebs PRN - suctioning prn HTN - Continue lisinopril, metoprolol, amlodipine Multiple pressure ulcers - Turn and position q2h IDDM - Continue Levemir sq qhs - ISS BGM ACHS F/E/N: - Tube feeds Prophylaxis: - SCDs bilaterally - No chemical anticoagulation 2/2 spontaneous gluteal bleed and severe GI bleed - PT
[2016-06-16] MEDS: METOPROLOL TARTRATE 50 MG TABLET (FP) GT SCH ×2 (10:14→21:07)
[2016-06-16] MEDS: amLODIPine BESYLATE 10 MG TABLET (FP) GT SCH (10:14)
[2016-06-16] MEDS: LACTOBACILLUS ACIDOPHILUS 1 EACH TAB (FP) PO SCH (10:14)
[2016-06-16] MEDS: MULTIVITAMINS THERAPEUTIC GT SCH (10:15)
[2016-06-16] MEDS: LISINOPRIL 20 MG TABLET (FP) GT SCH (10:15)
[2016-06-16] MEDS: PANTOPRAZOLE SOD 40 MG SUSPENSION PACKET GT SCH (10:15)
[2016-06-16] MEDS: SCOPOLAMINE HYDROBROMIDE 1 PATCH PATCH.TD72 TD SCH (15:00)
[2016-06-16] MEDS: INSULIN DETEMIR 100 UNITS/ML MDV SQ SCH (21:07)
[2016-06-17] MEDS: ALBUTEROL SO4 2.5/IPRATROPIUM 0.5 INH SOL 3 ML VIAL.NEB. NEB PRN (05:14)
[2016-06-17] MEDS: INSULIN SLIDING SCALE (NOVOLOG) 1 VIAL SQ SCH ×2 (06:10→18:30)
[2016-06-17] MEDS: AMINO ACIDS/PROTEIN HYDROLYS SUGAR-FREE 30 ML PACKET PO SCH ×2 (09:14→18:30)
[2016-06-17] MEDS: LACTOBACILLUS ACIDOPHILUS 1 EACH TAB (FP) PO SCH (10:56)
[2016-06-17] MEDS: amLODIPine BESYLATE 10 MG TABLET (FP) GT SCH (10:56)
[2016-06-17] MEDS: LISINOPRIL 20 MG TABLET (FP) GT SCH (10:56)
[2016-06-17] MEDS: MULTIVITAMINS THERAPEUTIC GT SCH (10:57)
[2016-06-17] MEDS: METOPROLOL TARTRATE 50 MG TABLET (FP) GT SCH ×2 (10:57→22:14)
[2016-06-17] MEDS: PANTOPRAZOLE SOD 40 MG SUSPENSION PACKET GT SCH (10:57)
--- NOTE | 2016-06-17 12:30 | PN ---
Progress Note (short form) - Note Progress Note: Hospitalist Progress Note This patient presented to the emergency department and was admitted for further evaluation of their emergent condition. SUBJECTIVE: Patient is nonverbal. Not following commands. OBJECTIVE: Vital Signs Period Temp Pulse Resp BP Sys/Santiago Pulse Ox Last 24 Hr 98.1 F-99.2 F 61-76 18-20 128-156/74-96 96-98 General: No acute distress Neuro: Eye tracking to verbal stimulus Pulm: Tach collar, CTA anteriorly CV: RRR, S1S2 Abd: Soft, non-distended. Normoactive bowel sounds. Peg tube c/d/i Ext: Warm, well-perfused. 2+ DP/PT bilaterally CBCD WBC 6.6 K/mm3 (4.0-10.0) 06/14/16 07:10 RBC 3.68 M/mm3 (4.00-5.60) L 06/14/16 07:10 Hgb 10.3 GM/dL (11.7-16.9) L 06/14/16 07:10 Hct 30.8 % (35.4-49) L 06/14/16 07:10 MCV 83.6 fl (80-96) 06/14/16 07:10 MCHC 33.6 g/dl (32.0-35.9) 06/14/16 07:10 RDW 15.8 % (11.9-15.9) 06/14/16 07:10 Plt Count 205 K/MM3 (134-434) 06/14/16 07:10 MPV 8.6 fl (7.5-11.1) 06/14/16 07:10 CMP Sodium 142 mmol/L (136-145) 06/14/16 07:10 Potassium 3.8 mmol/L (3.5-5.1) 06/14/16 07:10 Chloride 104 mmol/L (98-107) 06/14/16 07:10 Carbon Dioxide 29 mmol/L (21-32) 06/14/16 07:10 Anion Gap 9 (8-16) 06/14/16 07:10 BUN 20 mg/dL (7-18) H 06/14/16 07:10 Creatinine 0.8 mg/dL (0.7-1.3) 06/14/16 07:10 Creat Clearance w eGFR > 60 (>60) 06/14/16 07:10 Calcium 9.9 mg/dL (8.5-10.1) 06/14/16 07:10 Total Bilirubin 0.5 mg/dL (0.2-1.0) D 06/14/16 07:10 AST 21 U/L (15-37) D 06/14/16 07:10 ALT 39 U/L (12-78) D 06/14/16 07:10 Alkaline Phosphatase 127 U/L (45-117) H 06/14/16 07:10 Total Protein 7.9 g/dl (6.4-8.2) 06/14/16 07:10 Albumin 3.5 g/dl (3.4-5.0) 06/14/16 07:10 Current Medications Generic Name Dose Route Start Last Admin Trade Name Freq PRN Reason Stop Dose Admin Acetaminophen 650 mg 05/26/16 14:23 06/01/16 01:47 Tylenol Oral Solution - GT 650 mg Q4H PRN Administration FEVER Albuterol/Ipratropium 1 amp 05/02/16 11:51 06/17/16 05:14 Duoneb - NEB 1 amp Q6H PRN Administration SHORTNESS OF BREATH Amino Acids 30 ml 06/14/16 08:00 06/17/16 09:14 Prostat Sugar-Free Packet - PO 30 ml BID@0800,1730 KWAKU Administration Amlodipine Besylate 10 mg 12/30/15 10:00 06/17/16 10:56 Norvasc - GT 10 mg DAILY KWAKU Administration Guaifenesin 10 ml 12/29/15 10:43 05/16/16 10:16 Robitussin Dm - PO 10 ml Q6H PRN Administration COUGH Insulin Aspart 1 vial 01/28/16 16:30 06/17/16 06:10 Novolog Vial Sliding Scale - SQ Not Given BIDI [facility] Protocol Insulin Detemir 14 units 05/05/16 22:00 06/16/16 21:07 Levemir Vial SQ 14 units HS KWAKU Administration Lactobacillus Acidophilus 1 tab 12/30/15 10:00 06/17/16 10:56 Bacid - PO 1 tab DAILY [facility] Administration Lisinopril 40 mg 12/30/15 10:00 06/17/16 10:56 Prinivil - GT 40 mg DAILY [facility] Administration Metoprolol Tartrate 150 mg 12/29/15 22:00 06/17/16 10:57 Lopressor - GT 150 mg BID [facility] Administration Metoprolol Tartrate 5 mg 12/29/15 10:43 Lopressor Injection - IVPB Q6H PRN HYPERTENSION Multivitamins 5 ml 12/30/15 10:00 06/17/16 10:57 Thera-Plus - GT 5 ml DAILY [facility] Administration Pantoprazole Sodium 40 mg 12/30/15 10:00 06/17/16 10:57 Protonix Packets For Oral Suspension - GT 40 mg DAILY [facility] Administration Scopolamine HBr 1 patch 05/20/16 15:45 06/16/16 15:00 Transderm-Scop - TD 1 patch Q72H [facility]WAKU Administration Microbiology 06/14/16 11:13 Blood Culture - Preliminary Blood - Peripheral Venous NO GROWTH OBTAINED AFTER 72 HOURS, INCUBATION TO CONTINUE FOR 2 DAYS. 06/14/16 12:05 Gram Stain - Final Ulcer Wound Culture - Preliminary Pseudomonas Aeruginosa Enterococcus Faecalis Mr S Aureus Providencia Stuartii 06/14/16 12:05 Gram Stain - Final Sputum - Endotracheal Suction W/O Vent Sputum Culture - Final Pseudomonas Aeruginosa Morganella Morganii 06/15/16 13:50 Urine Culture - Final Urine - Urine - Catheterized NO GROWTH OBTAINED ASSESSMENT/PLAN:75 year old male with PMHx of HTN, IDDM, inguinal hernia who presented to the ED with diverticular bleed s/p Righ hemicolectomy with 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 Febrile - resolved - WBC wnl - F/u blood cultures, urine culture, check x-ray, sputum culture - urine culture resent because of contamination - ID consult appreciated Anoxic brain injury s/p brainstem CVAs - Mental status unchanged Respiratory failure secondary to anoxic brain injury - Cont trach collar - Duonebs PRN - suctioning prn HTN - Continue lisinopril, metoprolol, amlodipine Multiple pressure ulcers - Turn and position q2h IDDM - Continue Levemir sq qhs - ISS BGM ACHS F/E/N: - Tube feeds Prophylaxis: - SCDs bilaterally - No chemical anticoagulation 2/2 spontaneous gluteal bleed and severe GI bleed - PT
[2016-06-17] MEDS: INSULIN DETEMIR 100 UNITS/ML MDV SQ SCH (22:14)
[2016-06-18] MEDS: INSULIN SLIDING SCALE (NOVOLOG) 1 VIAL SQ SCH ×2 (06:37→17:32)
[2016-06-18] MEDS: METOPROLOL TARTRATE 50 MG TABLET (FP) GT SCH ×2 (09:27→22:20)
[2016-06-18] MEDS: amLODIPine BESYLATE 10 MG TABLET (FP) GT SCH (09:27)
[2016-06-18] MEDS: LISINOPRIL 20 MG TABLET (FP) GT SCH (09:28)
[2016-06-18] MEDS: MULTIVITAMINS THERAPEUTIC GT SCH (09:28)
[2016-06-18] MEDS: PANTOPRAZOLE SOD 40 MG SUSPENSION PACKET GT SCH (09:28)
[2016-06-18] MEDS: AMINO ACIDS/PROTEIN HYDROLYS SUGAR-FREE 30 ML PACKET PO SCH ×2 (09:28→17:33)
[2016-06-18] MEDS: LACTOBACILLUS ACIDOPHILUS 1 EACH TAB (FP) PO SCH (09:28)
[2016-06-18] MEDS: ALBUTEROL SO4 2.5/IPRATROPIUM 0.5 INH SOL 3 ML VIAL.NEB. NEB PRN (11:21)
--- NOTE | 2016-06-18 18:25 | PN ---
Progress Note (short form) - Note Progress Note: Hospitalist Progress Note This patient presented to the emergency department and was admitted for further evaluation of their emergent condition. SUBJECTIVE: Patient is nonverbal. Not following commands. OBJECTIVE: Vital Signs Period Temp Pulse Resp BP Sys/Santiago Pulse Ox Last 24 Hr 98.5 F-99.2 F 71-84 18-18 139-157/74-87 95-100 General: No acute distress Neuro: Eye tracking to verbal stimulus Pulm: Tach collar, CTA anteriorly CV: RRR, S1S2 Abd: Soft, non-distended. Normoactive bowel sounds. Peg tube c/d/i Ext: Warm, well-perfused. 2+ DP/PT bilaterally CBCD WBC 6.6 K/mm3 (4.0-10.0) 06/14/16 07:10 RBC 3.68 M/mm3 (4.00-5.60) L 06/14/16 07:10 Hgb 10.3 GM/dL (11.7-16.9) L 06/14/16 07:10 Hct 30.8 % (35.4-49) L 06/14/16 07:10 MCV 83.6 fl (80-96) 06/14/16 07:10 MCHC 33.6 g/dl (32.0-35.9) 06/14/16 07:10 RDW 15.8 % (11.9-15.9) 06/14/16 07:10 Plt Count 205 K/MM3 (134-434) 06/14/16 07:10 MPV 8.6 fl (7.5-11.1) 06/14/16 07:10 CMP Sodium 142 mmol/L (136-145) 06/14/16 07:10 Potassium 3.8 mmol/L (3.5-5.1) 06/14/16 07:10 Chloride 104 mmol/L (98-107) 06/14/16 07:10 Carbon Dioxide 29 mmol/L (21-32) 06/14/16 07:10 Anion Gap 9 (8-16) 06/14/16 07:10 BUN 20 mg/dL (7-18) H 06/14/16 07:10 Creatinine 0.8 mg/dL (0.7-1.3) 06/14/16 07:10 Creat Clearance w eGFR > 60 (>60) 06/14/16 07:10 Calcium 9.9 mg/dL (8.5-10.1) 06/14/16 07:10 Total Bilirubin 0.5 mg/dL (0.2-1.0) D 06/14/16 07:10 AST 21 U/L (15-37) D 06/14/16 07:10 ALT 39 U/L (12-78) D 06/14/16 07:10 Alkaline Phosphatase 127 U/L (45-117) H 06/14/16 07:10 Total Protein 7.9 g/dl (6.4-8.2) 06/14/16 07:10 Albumin 3.5 g/dl (3.4-5.0) 06/14/16 07:10 Current Medications Generic Name Dose Route Start Last Admin Trade Name Freq PRN Reason Stop Dose Admin Acetaminophen 650 mg 05/26/16 14:23 06/01/16 01:47 Tylenol Oral Solution - GT 650 mg Q4H PRN Administration FEVER Albuterol/Ipratropium 1 amp 05/02/16 11:51 06/18/16 11:21 Duoneb - NEB 1 amp Q6H PRN Administration SHORTNESS OF BREATH Amino Acids 30 ml 06/14/16 08:00 06/18/16 17:33 Prostat Sugar-Free Packet - PO 30 ml BID@0800,1730 KWAKU Administration Amlodipine Besylate 10 mg 12/30/15 10:00 06/18/16 09:27 Norvasc - GT 10 mg DAILY KWAKU Administration Guaifenesin 10 ml 12/29/15 10:43 05/16/16 10:16 Robitussin Dm - PO 10 ml Q6H PRN Administration COUGH Insulin Aspart 1 vial 01/28/16 16:30 06/18/16 17:32 Novolog Vial Sliding Scale - SQ 2 units BIDI KWAKU Administration Protocol Insulin Detemir 14 units 05/05/16 22:00 06/17/16 22:14 Levemir Vial SQ 14 units HS KWAKU Administration Lactobacillus Acidophilus 1 tab 12/30/15 10:00 06/18/16 09:28 Bacid - PO 1 tab DAILY KWAKU Administration Lisinopril 40 mg 12/30/15 10:00 06/18/16 09:28 Prinivil - GT 40 mg DAILY KWAKU Administration Metoprolol Tartrate 150 mg 12/29/15 22:00 06/18/16 09:27 Lopressor - GT 150 mg BID KWAKU Administration Metoprolol Tartrate 5 mg 12/29/15 10:43 Lopressor Injection - IVPB Q6H PRN HYPERTENSION Multivitamins 5 ml 12/30/15 10:00 06/18/16 09:28 Thera-Plus - GT 5 ml DAILY KWAKU Administration Pantoprazole Sodium 40 mg 12/30/15 10:00 06/18/16 09:28 Protonix Packets For Oral Suspension - GT 40 mg DAILY KWAKU Administration Scopolamine HBr 1 patch 05/20/16 15:45 06/16/16 15:00 Transderm-Scop - TD 1 patch Q72H KWAKU Administration ASSESSMENT/PLAN:75 year old male with PMHx of HTN, IDDM, inguinal hernia who presented to the ED with diverticular bleed s/p Righ hemicolectomy with 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 Febrile - resolved - WBC wnl Anoxic brain injury s/p brainstem CVAs - Mental status unchanged Respiratory failure secondary to anoxic brain injury - Cont trach collar - Duonebs PRN - suctioning prn HTN - Continue lisinopril, metoprolol, amlodipine Multiple pressure ulcers - Turn and position q2h IDDM - Continue Levemir sq qhs - ISS BGM ACHS F/E/N: - Tube feeds Prophylaxis: - SCDs bilaterally - No chemical anticoagulation 2/2 spontaneous gluteal bleed and severe GI bleed - PT
[2016-06-18] MEDS: INSULIN DETEMIR 100 UNITS/ML MDV SQ SCH (22:20)
[2016-06-19] MEDS: ALBUTEROL SO4 2.5/IPRATROPIUM 0.5 INH SOL 3 ML VIAL.NEB. NEB PRN (06:04)
[2016-06-19] MEDS: INSULIN SLIDING SCALE (NOVOLOG) 1 VIAL SQ SCH ×2 (06:18→16:33)
[2016-06-19 08:18] LABS: MCH 28.5 pg (25.7-33.7); MCHC 33.2 g/dl (32.0-35.9); MEAN CELL VOLUME 85.9 fl (80-96); MEAN PLT VOLUME 9.5 fl (7.5-11.1); PLATELET COUNT 189 K/MM3 (134-434); RDW 16.3 % (11.9-15.9)
[2016-06-19 08:44] LABS: CALCIUM 9.5 mg/dL (8.5-10.1); CREATININE 0.9 mg/dL (0.7-1.3)
[2016-06-19] MEDS: AMINO ACIDS/PROTEIN HYDROLYS SUGAR-FREE 30 ML PACKET PO SCH ×2 (09:16→17:43)
[2016-06-19] MEDS: LISINOPRIL 20 MG TABLET (FP) GT SCH (09:17)
[2016-06-19] MEDS: METOPROLOL TARTRATE 50 MG TABLET (FP) GT SCH ×2 (09:17→23:00)
[2016-06-19] MEDS: amLODIPine BESYLATE 10 MG TABLET (FP) GT SCH (09:17)
[2016-06-19] MEDS: MULTIVITAMINS THERAPEUTIC GT SCH (09:17)
[2016-06-19] MEDS: PANTOPRAZOLE SOD 40 MG SUSPENSION PACKET GT SCH (09:17)
[2016-06-19] MEDS: LACTOBACILLUS ACIDOPHILUS 1 EACH TAB (FP) PO SCH (09:17)
[2016-06-19] MEDS: SCOPOLAMINE HYDROBROMIDE 1 PATCH PATCH.TD72 TD SCH (15:22)
--- NOTE | 2016-06-19 17:19 | PN ---
Progress Note (short form) - Note Progress Note: Hospitalist Progress Note This patient presented to the emergency department and was admitted for further evaluation of their emergent condition. SUBJECTIVE: Patient is nonverbal. Not following commands. OBJECTIVE: Vital Signs Period Temp Pulse Resp BP Sys/Santiago Pulse Ox Last 24 Hr 97.9 F-98.9 F 74-92 18-20 140-149/78-89 97-99 General: No acute distress Neuro: Eye tracking to verbal stimulus Pulm: Tach collar, CTA anteriorly CV: RRR, S1S2 Abd: Soft, non-distended. Normoactive bowel sounds. Peg tube c/d/i Ext: Warm, well-perfused. 2+ DP/PT bilaterally CBCD WBC 6.0 K/mm3 (4.0-10.0) 06/19/16 07:15 RBC 3.87 M/mm3 (4.00-5.60) L 06/19/16 07:15 Hgb 11.0 GM/dL (11.7-16.9) L 06/19/16 07:15 Hct 33.2 % (35.4-49) L 06/19/16 07:15 MCV 85.9 fl (80-96) 06/19/16 07:15 MCHC 33.2 g/dl (32.0-35.9) 06/19/16 07:15 RDW 16.3 % (11.9-15.9) H 06/19/16 07:15 Plt Count 189 K/MM3 (134-434) 06/19/16 07:15 MPV 9.5 fl (7.5-11.1) D 06/19/16 07:15 CMP Sodium 143 mmol/L (136-145) 06/19/16 07:15 Potassium 3.8 mmol/L (3.5-5.1) 06/19/16 07:15 Chloride 106 mmol/L (98-107) 06/19/16 07:15 Carbon Dioxide 30 mmol/L (21-32) 06/19/16 07:15 Anion Gap 7 (8-16) L 06/19/16 07:15 BUN 27 mg/dL (7-18) H D 06/19/16 07:15 Creatinine 0.9 mg/dL (0.7-1.3) 06/19/16 07:15 Creat Clearance w eGFR > 60 (>60) 06/14/16 07:10 Calcium 9.5 mg/dL (8.5-10.1) 06/19/16 07:15 Total Bilirubin 0.5 mg/dL (0.2-1.0) D 06/14/16 07:10 AST 21 U/L (15-37) D 06/14/16 07:10 ALT 39 U/L (12-78) D 06/14/16 07:10 Alkaline Phosphatase 127 U/L (45-117) H 06/14/16 07:10 Total Protein 7.9 g/dl (6.4-8.2) 06/14/16 07:10 Albumin 3.5 g/dl (3.4-5.0) 06/14/16 07:10 Current Medications Generic Name Dose Route Start Last Admin Trade Name Freq PRN Reason Stop Dose Admin Acetaminophen 650 mg 05/26/16 14:23 06/01/16 01:47 Tylenol Oral Solution - GT 650 mg Q4H PRN Administration FEVER Albuterol/Ipratropium 1 amp 05/02/16 11:51 06/19/16 06:04 Duoneb - NEB 1 amp Q6H PRN Administration SHORTNESS OF BREATH Amino Acids 30 ml 06/14/16 08:00 06/19/16 09:16 Prostat Sugar-Free Packet - PO 30 ml BID@0800,1730 KWAKU Administration Amlodipine Besylate 10 mg 12/30/15 10:00 06/19/16 09:17 Norvasc - GT 10 mg DAILY KWAKU Administration Guaifenesin 10 ml 12/29/15 10:43 05/16/16 10:16 Robitussin Dm - PO 10 ml Q6H PRN Administration COUGH Insulin Aspart 1 vial 01/28/16 16:30 06/19/16 16:33 Novolog Vial Sliding Scale - SQ Not Given BIDI [facility] Protocol Insulin Detemir 14 units 05/05/16 22:00 06/18/16 22:20 Levemir Vial SQ 14 units HS KWAKU Administration Lactobacillus Acidophilus 1 tab 12/30/15 10:00 06/19/16 09:17 Bacid - PO 1 tab DAILY KWAKU Administration Lisinopril 40 mg 12/30/15 10:00 06/19/16 09:17 Prinivil - GT 40 mg DAILY KWAKU Administration Metoprolol Tartrate 150 mg 12/29/15 22:00 06/19/16 09:17 Lopressor - GT 150 mg BID KWAKU Administration Metoprolol Tartrate 5 mg 12/29/15 10:43 Lopressor Injection - IVPB Q6H PRN HYPERTENSION Multivitamins 5 ml 12/30/15 10:00 06/19/16 09:17 Thera-Plus - GT 5 ml DAILY KWAKU Administration Pantoprazole Sodium 40 mg 12/30/15 10:00 06/19/16 09:17 Protonix Packets For Oral Suspension - GT 40 mg DAILY KWAKU Administration Scopolamine HBr 1 patch 05/20/16 15:45 06/19/16 15:22 Transderm-Scop - TD 1 patch Q72H KWAKU Administration ASSESSMENT/PLAN:75 year old male with PMHx of HTN, IDDM, inguinal hernia who presented to the ED with diverticular bleed s/p Righ hemicolectomy with 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 Febrile - resolved - WBC wnl Anoxic brain injury s/p brainstem CVAs - Mental status unchanged Respiratory failure secondary to anoxic brain injury - Cont trach collar - Duonebs PRN - suctioning prn HTN - Continue lisinopril, metoprolol, amlodipine Multiple pressure ulcers - Turn and position q2h IDDM - Continue Levemir sq qhs - ISS BGM ACHS F/E/N: - Tube feeds Prophylaxis: - SCDs bilaterally - No chemical anticoagulation 2/2 spontaneous gluteal bleed and severe GI bleed - PT
[2016-06-19] MEDS: INSULIN DETEMIR 100 UNITS/ML MDV SQ SCH (23:00)
[2016-06-20] MEDS: INSULIN SLIDING SCALE (NOVOLOG) 1 VIAL SQ SCH ×2 (06:55→17:02)
[2016-06-20] MEDS: AMINO ACIDS/PROTEIN HYDROLYS SUGAR-FREE 30 ML PACKET PO SCH ×2 (11:02→17:14)
[2016-06-20] MEDS: LACTOBACILLUS ACIDOPHILUS 1 EACH TAB (FP) PO SCH (11:03)
[2016-06-20] MEDS: METOPROLOL TARTRATE 50 MG TABLET (FP) GT SCH ×2 (11:03→21:58)
[2016-06-20] MEDS: amLODIPine BESYLATE 10 MG TABLET (FP) GT SCH (11:04)
[2016-06-20] MEDS: LISINOPRIL 20 MG TABLET (FP) GT SCH (11:04)
[2016-06-20] MEDS: MULTIVITAMINS THERAPEUTIC GT SCH (11:04)
[2016-06-20] MEDS: PANTOPRAZOLE SOD 40 MG SUSPENSION PACKET GT SCH (11:04)
--- NOTE | 2016-06-20 16:39 | PN ---
Progress Note (short form) - Note Progress Note: Hospitalist Progress Note This patient presented to the emergency department and was admitted for further evaluation of their emergent condition. SUBJECTIVE: Patient seen and examined. Patient is nonverbal. Not following commands. OBJECTIVE: Vital Signs Period Temp Pulse Resp BP Sys/Santiago Pulse Ox Last 24 Hr 97.2 F-99 F 58-78 18-22 132-163/75-89 99-99 General: No acute distress Neuro: Eye tracking to verbal stimulus Pulm: Tach collar, CTA anteriorly CV: RRR, S1S2 Abd: Soft, non-distended. Normoactive bowel sounds. Peg tube c/d/i Ext: Warm, well-perfused. 2+ DP/PT bilaterally CBCD WBC 6.0 K/mm3 (4.0-10.0) 06/19/16 07:15 RBC 3.87 M/mm3 (4.00-5.60) L 06/19/16 07:15 Hgb 11.0 GM/dL (11.7-16.9) L 06/19/16 07:15 Hct 33.2 % (35.4-49) L 06/19/16 07:15 MCV 85.9 fl (80-96) 06/19/16 07:15 MCHC 33.2 g/dl (32.0-35.9) 06/19/16 07:15 RDW 16.3 % (11.9-15.9) H 06/19/16 07:15 Plt Count 189 K/MM3 (134-434) 06/19/16 07:15 MPV 9.5 fl (7.5-11.1) D 06/19/16 07:15 CMP Sodium 143 mmol/L (136-145) 06/19/16 07:15 Potassium 3.8 mmol/L (3.5-5.1) 06/19/16 07:15 Chloride 106 mmol/L (98-107) 06/19/16 07:15 Carbon Dioxide 30 mmol/L (21-32) 06/19/16 07:15 Anion Gap 7 (8-16) L 06/19/16 07:15 BUN 27 mg/dL (7-18) H D 06/19/16 07:15 Creatinine 0.9 mg/dL (0.7-1.3) 06/19/16 07:15 Creat Clearance w eGFR > 60 (>60) 06/14/16 07:10 Calcium 9.5 mg/dL (8.5-10.1) 06/19/16 07:15 Total Bilirubin 0.5 mg/dL (0.2-1.0) D 06/14/16 07:10 AST 21 U/L (15-37) D 06/14/16 07:10 ALT 39 U/L (12-78) D 06/14/16 07:10 Alkaline Phosphatase 127 U/L (45-117) H 06/14/16 07:10 Total Protein 7.9 g/dl (6.4-8.2) 06/14/16 07:10 Albumin 3.5 g/dl (3.4-5.0) 06/14/16 07:10 Current Medications Generic Name Dose Route Start Last Admin Trade Name Freq PRN Reason Stop Dose Admin Acetaminophen 650 mg 05/26/16 14:23 06/01/16 01:47 Tylenol Oral Solution - GT 650 mg Q4H PRN Administration FEVER Amino Acids 30 ml 06/14/16 08:00 06/20/16 11:02 Prostat Sugar-Free Packet - PO 30 ml BID@0800,1730 KWAKU Administration Amlodipine Besylate 10 mg 12/30/15 10:00 06/20/16 11:04 Norvasc - GT 10 mg DAILY KWAKU Administration Guaifenesin 10 ml 12/29/15 10:43 05/16/16 10:16 Robitussin Dm - PO 10 ml Q6H PRN Administration COUGH Insulin Aspart 1 vial 01/28/16 16:30 06/20/16 06:55 Novolog Vial Sliding Scale - SQ Not Given [facility]I [facility] Protocol Insulin Detemir 14 units 05/05/16 22:00 06/19/16 23:00 Levemir Vial SQ 14 units HS KWAKU Administration Lactobacillus Acidophilus 1 tab 12/30/15 10:00 06/20/16 11:03 Bacid - PO 1 tab DAILY KWAKU Administration Lisinopril 40 mg 12/30/15 10:00 06/20/16 11:04 Prinivil - GT 40 mg DAILY KWAKU Administration Metoprolol Tartrate 150 mg 12/29/15 22:00 06/20/16 11:03 Lopressor - GT 150 mg BID KWAKU Administration Metoprolol Tartrate 5 mg 12/29/15 10:43 Lopressor Injection - IVPB Q6H PRN HYPERTENSION Multivitamins 5 ml 12/30/15 10:00 06/20/16 11:04 Thera-Plus - GT 5 ml DAILY KWAKU Administration Pantoprazole Sodium 40 mg 12/30/15 10:00 06/20/16 11:04 Protonix Packets For Oral Suspension - GT 40 mg DAILY KWAKU Administration Scopolamine HBr 1 patch 05/20/16 15:45 06/19/16 15:22 Transderm-Scop - TD 1 patch Q72H KWAKU Administration ASSESSMENT/PLAN:75 year old male with PMHx of HTN, IDDM, inguinal hernia who presented to the ED with diverticular bleed s/p Righ hemicolectomy with 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 Febrile - resolved - WBC wnl Anoxic brain injury s/p brainstem CVAs - Mental status unchanged Respiratory failure secondary to anoxic brain injury - Cont trach collar - Duonebs PRN - suctioning prn HTN - Continue lisinopril, metoprolol, amlodipine Multiple pressure ulcers - Turn and position q2h IDDM - Continue Levemir sq qhs - ISS BGM ACHS F/E/N: - Tube feeds Prophylaxis: - SCDs bilaterally - No chemical anticoagulation 2/2 spontaneous gluteal bleed and severe GI bleed - PT
[2016-06-20] MEDS: INSULIN DETEMIR 100 UNITS/ML MDV SQ SCH (21:58)
[2016-06-21] MEDS: INSULIN SLIDING SCALE (NOVOLOG) 1 VIAL SQ SCH ×2 (06:43→16:40)
[2016-06-21] MEDS: AMINO ACIDS/PROTEIN HYDROLYS SUGAR-FREE 30 ML PACKET PO SCH ×2 (09:00→17:41)
[2016-06-21] MEDS: LACTOBACILLUS ACIDOPHILUS 1 EACH TAB (FP) PO SCH (09:11)
[2016-06-21] MEDS: METOPROLOL TARTRATE 50 MG TABLET (FP) GT SCH ×2 (09:11→21:32)
[2016-06-21] MEDS: amLODIPine BESYLATE 10 MG TABLET (FP) GT SCH (09:12)
[2016-06-21] MEDS: LISINOPRIL 20 MG TABLET (FP) GT SCH (09:12)
[2016-06-21] MEDS: PANTOPRAZOLE SOD 40 MG SUSPENSION PACKET GT SCH (09:12)
[2016-06-21] MEDS: MULTIVITAMINS THERAPEUTIC GT SCH (09:13)
--- NOTE | 2016-06-21 11:39 | PN ---
Progress Note (short form) - Note Progress Note: Hospitalist Progress Note This patient presented to the emergency department and was admitted for further evaluation of their emergent condition. SUBJECTIVE: Patient seen and examined. Patient is nonverbal. Not following commands. No acute distress noted. OBJECTIVE: General: No acute distress Neuro: Eye tracking to verbal stimulus Pulm: Tach collar, CTA anteriorly CV: RRR, S1S2 Abd: Soft, non-distended. Normoactive bowel sounds. Peg tube c/d/i Ext: Warm, well-perfused. 2+ DP/PT bilaterally. Moves upper extremities. CBCD WBC 6.0 K/mm3 (4.0-10.0) 06/19/16 07:15 RBC 3.87 M/mm3 (4.00-5.60) L 06/19/16 07:15 Hgb 11.0 GM/dL (11.7-16.9) L 06/19/16 07:15 Hct 33.2 % (35.4-49) L 06/19/16 07:15 MCV 85.9 fl (80-96) 06/19/16 07:15 MCHC 33.2 g/dl (32.0-35.9) 06/19/16 07:15 RDW 16.3 % (11.9-15.9) H 06/19/16 07:15 Plt Count 189 K/MM3 (134-434) 06/19/16 07:15 MPV 9.5 fl (7.5-11.1) D 06/19/16 07:15 CMP Sodium 143 mmol/L (136-145) 06/19/16 07:15 Potassium 3.8 mmol/L (3.5-5.1) 06/19/16 07:15 Chloride 106 mmol/L (98-107) 06/19/16 07:15 Carbon Dioxide 30 mmol/L (21-32) 06/19/16 07:15 Anion Gap 7 (8-16) L 06/19/16 07:15 BUN 27 mg/dL (7-18) H D 06/19/16 07:15 Creatinine 0.9 mg/dL (0.7-1.3) 06/19/16 07:15 Creat Clearance w eGFR > 60 (>60) 06/14/16 07:10 Calcium 9.5 mg/dL (8.5-10.1) 06/19/16 07:15 Total Bilirubin 0.5 mg/dL (0.2-1.0) D 06/14/16 07:10 AST 21 U/L (15-37) D 06/14/16 07:10 ALT 39 U/L (12-78) D 06/14/16 07:10 Alkaline Phosphatase 127 U/L (45-117) H 06/14/16 07:10 Total Protein 7.9 g/dl (6.4-8.2) 06/14/16 07:10 Albumin 3.5 g/dl (3.4-5.0) 06/14/16 07:10 Current Medications Generic Name Dose Route Start Last Admin Trade Name Freq PRN Reason Stop Dose Admin Acetaminophen 650 mg 05/26/16 14:23 06/01/16 01:47 Tylenol Oral Solution - GT 650 mg Q4H PRN Administration FEVER Amino Acids 30 ml 06/14/16 08:00 06/21/16 09:00 Prostat Sugar-Free Packet - PO 30 ml BID@0800,1730 KWAKU Administration Amlodipine Besylate 10 mg 12/30/15 10:00 06/21/16 09:12 Norvasc - GT 10 mg DAILY KWAKU Administration Guaifenesin 10 ml 12/29/15 10:43 05/16/16 10:16 Robitussin Dm - PO 10 ml Q6H PRN Administration COUGH Insulin Aspart 1 vial 01/28/16 16:30 06/21/16 06:43 Novolog Vial Sliding Scale - SQ Not Given BIDI [facility] Protocol Insulin Detemir 14 units 05/05/16 22:00 06/20/16 21:58 Levemir Vial SQ 14 units HS KWAKU Administration Lactobacillus Acidophilus 1 tab 12/30/15 10:00 06/21/16 09:11 Bacid - PO 1 tab DAILY KWAKU Administration Lisinopril 40 mg 12/30/15 10:00 06/21/16 09:12 Prinivil - GT 40 mg DAILY KWAKU Administration Metoprolol Tartrate 150 mg 12/29/15 22:00 06/21/16 09:11 Lopressor - GT 150 mg BID KWAKU Administration Metoprolol Tartrate 5 mg 12/29/15 10:43 Lopressor Injection - IVPB Q6H PRN HYPERTENSION Multivitamins 5 ml 12/30/15 10:00 08/24/16 09:13 Thera-Plus - GT 5 ml DAILY KWAKU Administration Pantoprazole Sodium 40 mg 12/30/15 10:00 06/21/16 09:12 Protonix Packets For Oral Suspension - GT 40 mg DAILY KWAKU Administration Scopolamine HBr 1 patch 05/20/16 15:45 06/19/16 15:22 Transderm-Scop - TD 1 patch Q72H KWAKU Administration ASSESSMENT/PLAN:75 year old male with PMHx of HTN, IDDM, inguinal hernia who presented to the ED with diverticular bleed s/p Righ hemicolectomy with 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 Febrile - resolved - WBC wnl Anoxic brain injury s/p brainstem CVAs - Mental status unchanged Respiratory failure secondary to anoxic brain injury - Cont trach collar - Duonebs PRN - suctioning prn HTN - Continue lisinopril, metoprolol, amlodipine Multiple pressure ulcers - Turn and position q2h IDDM - Continue Levemir sq qhs - ISS BGM ACHS F/E/N: - Tube feeds Prophylaxis: - SCDs bilaterally - No chemical anticoagulation 2/2 spontaneous gluteal bleed and severe GI bleed - PT
[2016-06-21] MEDS: INSULIN DETEMIR 100 UNITS/ML MDV SQ SCH (21:31)
[2016-06-22] MEDS: INSULIN SLIDING SCALE (NOVOLOG) 1 VIAL SQ SCH ×2 (06:57→18:50)
[2016-06-22] MEDS: PANTOPRAZOLE SOD 40 MG SUSPENSION PACKET GT SCH (10:57)
[2016-06-22] MEDS: LISINOPRIL 20 MG TABLET (FP) GT SCH (10:57)
[2016-06-22] MEDS: amLODIPine BESYLATE 10 MG TABLET (FP) GT SCH (10:58)
[2016-06-22] MEDS: METOPROLOL TARTRATE 50 MG TABLET (FP) GT SCH (10:58)
[2016-06-22] MEDS: MULTIVITAMINS THERAPEUTIC GT SCH (10:58)
[2016-06-22] MEDS: AMINO ACIDS/PROTEIN HYDROLYS SUGAR-FREE 30 ML PACKET PO SCH ×2 (10:58→18:50)
[2016-06-22] MEDS: LACTOBACILLUS ACIDOPHILUS 1 EACH TAB (FP) PO SCH (10:58)
[2016-06-22] MEDS: SCOPOLAMINE HYDROBROMIDE 1 PATCH PATCH.TD72 TD SCH (16:00)
[2016-06-23] MEDS: INSULIN DETEMIR 100 UNITS/ML MDV SQ SCH ×2 (00:32→23:16)
[2016-06-23] MEDS: METOPROLOL TARTRATE 50 MG TABLET (FP) GT SCH ×3 (00:34→23:16)
[2016-06-23] MEDS: INSULIN SLIDING SCALE (NOVOLOG) 1 VIAL SQ SCH ×2 (07:17→17:36)
[2016-06-23] MEDS: AMINO ACIDS/PROTEIN HYDROLYS SUGAR-FREE 30 ML PACKET PO SCH ×2 (11:19→17:33)
[2016-06-23] MEDS: PANTOPRAZOLE SOD 40 MG SUSPENSION PACKET GT SCH (11:19)
[2016-06-23] MEDS: LACTOBACILLUS ACIDOPHILUS 1 EACH TAB (FP) PO SCH (11:19)
[2016-06-23] MEDS: amLODIPine BESYLATE 10 MG TABLET (FP) GT SCH (11:19)
[2016-06-23] MEDS: LISINOPRIL 20 MG TABLET (FP) GT SCH (11:19)
[2016-06-23] MEDS: MULTIVITAMINS THERAPEUTIC GT SCH (11:20)
--- NOTE | 2016-06-23 15:44 | PN ---
Physical Exam: [facility] *LIVE* Progress Note-Symphony Patient Name: CRUZ LEE Date of : 1940 Patient Status: Inpatient Attending Provider: Marcella Mcdonald Date: 06/23/16 18:53 Initialization Date: 06/22/16 18:53 Physical Exam: SUBJECTIVE: Patient seen and examined OBJECTIVE: Vital Signs Period Temp Pulse Resp BP Sys/Santiago Pulse Ox Last 24 Hr 98 F-99.2 F 75-83 18-22 125-152/66-93 97-99 GENERAL/NEURO: Eyes open. Non-verbal. Does not follow commands. Non-purposeful movement. HEAD: Normal with no signs of trauma. Trach. EYES: PERRL, extraocular movements intact, sclera anicteric, conjunctiva clear. No ptosis. ENT: Ears normal, nares patent, oropharynx clear without exudates, moist mucous membranes. LUNGS: CTA; on trach collar; no wheezing, no rhonchi, no accessory muscle use. HEART: Regular rate and rhythm, S1, S2 without murmur, rub or gallop. ABDOMEN: Soft, nontender, nondistended, normoactive bowel sounds, no guarding, no rebound, no hepatosplenomegaly, no masses. PEG tube. EXTREMITIES: 2+ pulses, warm, well-perfused, no edema. SKIN: Three stage II and III sacral pressure ulcers, not visualized today CBCD WBC 6.0 K/mm3 (4.0-10.0) 06/19/16 07:15 RBC 3.87 M/mm3 (4.00-5.60) L 06/19/16 07:15 Hgb 11.0 GM/dL (11.7-16.9) L 06/19/16 07:15 Hct 33.2 % (35.4-49) L 06/19/16 07:15 MCV 85.9 fl (80-96) 06/19/16 07:15 MCHC 33.2 g/dl (32.0-35.9) 06/19/16 07:15 RDW 16.3 % (11.9-15.9) H 06/19/16 07:15 Plt Count 189 K/MM3 (134-434) 06/19/16 07:15 MPV 9.5 fl (7.5-11.1) D 06/19/16 07:15 CMP Sodium 143 mmol/L (136-145) 06/19/16 07:15 Potassium 3.8 mmol/L (3.5-5.1) 06/19/16 07:15 Chloride 106 mmol/L (98-107) 06/19/16 07:15 Carbon Dioxide 30 mmol/L (21-32) 06/19/16 07:15 Anion Gap 7 (8-16) L 06/19/16 07:15 BUN 27 mg/dL (7-18) H D 06/19/16 07:15 Creatinine 0.9 mg/dL (0.7-1.3) 06/19/16 07:15 Creat Clearance w eGFR > 60 (>60) 06/14/16 07:10 Calcium 9.5 mg/dL (8.5-10.1) 06/19/16 07:15 Total Bilirubin 0.5 mg/dL (0.2-1.0) D 06/14/16 07:10 AST 21 U/L (15-37) D 06/14/16 07:10 ALT 39 U/L (12-78) D 06/14/16 07:10 Alkaline Phosphatase 127 U/L (45-117) H 06/14/16 07:10 Total Protein 7.9 g/dl (6.4-8.2) 06/14/16 07:10 Albumin 3.5 g/dl (3.4-5.0) 06/14/16 07:10 Active Medications Generic Name Dose Route Start Last Admin Trade Name Ginette PRN Reason Stop Dose Admin Acetaminophen 650 mg 05/26/16 14:23 06/01/16 01:47 Tylenol Oral Solution - GT 650 mg Q4H PRN Administration FEVER Amino Acids 30 ml 06/14/16 08:00 06/22/16 18:50 Prostat Sugar-Free Packet - PO 30 ml BID@0800,1730 KWAKU Administration Amlodipine Besylate 10 mg 12/30/15 10:00 06/22/16 10:58 Norvasc - GT 10 mg DAILY KWAKU Administration Guaifenesin 10 ml 12/29/15 10:43 05/16/16 10:16 Robitussin Dm - PO 10 ml Q6H PRN Administration COUGH Insulin Aspart 1 vial 01/28/16 16:30 06/22/16 18:50 Novolog Vial Sliding Scale - SQ 2 units BIDI KWAKU Administration Protocol Insulin Detemir 14 units 05/05/16 22:00 06/21/16 21:31 Levemir Vial SQ 14 units HS KWAKU Administration Lactobacillus Acidophilus 1 tab 12/30/15 10:00 06/22/16 10:58 Bacid - PO 1 tab DAILY KWAKU Administration Lisinopril 40 mg 12/30/15 10:00 06/22/16 10:57 Prinivil - GT 40 mg DAILY KWAKU Administration Metoprolol Tartrate 150 mg 12/29/15 22:00 06/22/16 10:58 Lopressor - GT 150 mg BID KWAKU Administration Metoprolol Tartrate 5 mg 12/29/15 10:43 Lopressor Injection - IVPB Q6H PRN HYPERTENSION Multivitamins 5 ml 12/30/15 10:00 06/22/16 10:58 Thera-Plus - GT 5 ml DAILY KWAKU Administration Pantoprazole Sodium 40 mg 12/30/15 10:00 06/22/16 10:57 Protonix Packets For Oral Suspension - GT 40 mg DAILY KWAKU Administration Scopolamine HBr 1 patch 05/20/16 15:45 06/19/16 15:22 Transderm-Scop - TD 1 patch Q72H KWAKU Administration ASSESSMENT/PLAN: 75 year old male with PMHx of HTN, IDDM, inguinal hernia who presented to the ED with diverticular bleed s/p right hemicolectomy. 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 Hydronephrosis, chronic --renal function stable Right inguinal hernia --incidental finding on CT --no surgical intervention at this time Anoxic brain injury s/p brainstem CVAs --mental status unchanged Respiratory failure secondary to anoxic brain injury --cont trach collar --Duonebs PRN HTN --BP well-controlled --continue lisinopril, metoprolol, amlodipine Multiple pressure ulcers --three (3) stage II and III sacral pressure ulcers --Allevyn dressing IDDM --Levemir --Novolog sliding scale coverage --fingersticks DVT prophylaxis: SCDs, no chemical anticoagulation Dispo: Continue regular weekly lab draws and ECGs. DNR/DNI. Visit Type - Emergency Visit Emergency Visit: Yes ED Registration Date: 06/27/15 Care time: The patient presented to the Emergency Department on the above date and was hospitalized for further evaluation of their emergent condition. - New Patient This patient is new to me today: No - Critical Care Critical Care patient: No
[2016-06-24] MEDS: INSULIN SLIDING SCALE (NOVOLOG) 1 VIAL SQ SCH ×2 (07:11→17:14)
[2016-06-24] MEDS: AMINO ACIDS/PROTEIN HYDROLYS SUGAR-FREE 30 ML PACKET PO SCH ×2 (08:44→17:18)
[2016-06-24] MEDS: amLODIPine BESYLATE 10 MG TABLET (FP) GT SCH (12:16)
[2016-06-24] MEDS: MULTIVITAMINS THERAPEUTIC GT SCH (12:17)
[2016-06-24] MEDS: LISINOPRIL 20 MG TABLET (FP) GT SCH (12:17)
[2016-06-24] MEDS: LACTOBACILLUS ACIDOPHILUS 1 EACH TAB (FP) PO SCH (12:17)
[2016-06-24] MEDS: PANTOPRAZOLE SOD 40 MG SUSPENSION PACKET GT SCH (12:17)
[2016-06-24] MEDS: METOPROLOL TARTRATE 50 MG TABLET (FP) GT SCH ×2 (12:59→22:22)
--- NOTE | 2016-06-24 15:40 | PN ---
Physical Exam: SUBJECTIVE: Patient seen and examined OBJECTIVE: Vital Signs Period Temp Pulse Resp BP Sys/Santiago Pulse Ox Last 24 Hr 98.4 F-99.0 F 70-82 20-22 144-161/78-91 95-98 GENERAL/NEURO: Eyes open. Non-verbal. Does not follow commands. Non-purposeful movement. HEAD: Normal with no signs of trauma. Trach. EYES: PERRL, extraocular movements intact, sclera anicteric, conjunctiva clear. No ptosis. ENT: Ears normal, nares patent, oropharynx clear without exudates, moist mucous membranes. LUNGS: CTA; on trach collar; no wheezing, no rhonchi, no accessory muscle use. HEART: Regular rate and rhythm, S1, S2 without murmur, rub or gallop. ABDOMEN: Soft, nontender, nondistended, normoactive bowel sounds, no guarding, no rebound, no hepatosplenomegaly, no masses. PEG tube. EXTREMITIES: 2+ pulses, warm, well-perfused, no edema. SKIN: Three stage II and III sacral pressure ulcers, not visualized today Laboratory Results - last 24 hr 06/23/16 06/24/16 17:35 06:46 POC Glucometer 151 109 Active Medications Generic Name Dose Route Start Last Admin Trade Name Freq PRN Reason Stop Dose Admin Acetaminophen 650 mg 05/26/16 14:23 06/01/16 01:47 Tylenol Oral Solution - GT 650 mg Q4H PRN Administration FEVER Amino Acids 30 ml 06/14/16 08:00 06/24/16 08:44 Prostat Sugar-Free Packet - PO 30 ml BID@0800,1730 KWAKU Administration Amlodipine Besylate 10 mg 12/30/15 10:00 06/24/16 12:16 Norvasc - GT 10 mg DAILY KWAKU Administration Guaifenesin 10 ml 12/29/15 10:43 05/16/16 10:16 Robitussin Dm - PO 10 ml Q6H PRN Administration COUGH Insulin Aspart 1 vial 01/28/16 16:30 06/24/16 07:11 Novolog Vial Sliding Scale - SQ Not Given BIDI [facility] Protocol Insulin Detemir 14 units 05/05/16 22:00 06/23/16 23:16 Levemir Vial SQ 14 units HS KWAKU Administration Lactobacillus Acidophilus 1 tab 12/30/15 10:00 06/24/16 12:17 Bacid - PO 1 tab DAILY KWAKU Administration Lisinopril 40 mg 12/30/15 10:00 06/24/16 12:17 Prinivil - GT 40 mg DAILY KWAKU Administration Metoprolol Tartrate 150 mg 12/29/15 22:00 06/24/16 12:59 Lopressor - GT 150 mg BID KWAKU Administration Metoprolol Tartrate 5 mg 12/29/15 10:43 Lopressor Injection - IVPB Q6H PRN HYPERTENSION Multivitamins 5 ml 12/30/15 10:00 06/24/16 12:17 Thera-Plus - GT 5 ml DAILY KWAKU Administration Pantoprazole Sodium 40 mg 12/30/15 10:00 06/24/16 12:17 Protonix Packets For Oral Suspension - GT 40 mg DAILY KWAKU Administration Scopolamine HBr 1 patch 05/20/16 15:45 06/22/16 16:00 Transderm-Scop - TD 1 patch Q72H KWAKU Administration ASSESSMENT/PLAN: 75 year old male with PMHx of HTN, IDDM, inguinal hernia who presented to the ED with diverticular bleed s/p right hemicolectomy. 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 Hydronephrosis, chronic --renal function stable Right inguinal hernia --incidental finding on CT --no surgical intervention at this time Anoxic brain injury s/p brainstem CVAs --mental status unchanged Respiratory failure secondary to anoxic brain injury --cont trach collar --Duonebs PRN HTN --BP well-controlled --continue lisinopril, metoprolol, amlodipine Multiple pressure ulcers --three (3) stage II and III sacral pressure ulcers --Allevyn dressing IDDM --Levemir --Novolog sliding scale coverage --fingersticks DVT prophylaxis: SCDs, no chemical anticoagulation Dispo: Continue regular weekly lab draws and ECGs. DNR/DNI. Visit Type - Emergency Visit Emergency Visit: Yes ED Registration Date: 06/27/15 Care time: The patient presented to the Emergency Department on the above date and was hospitalized for further evaluation of their emergent condition. - New Patient This patient is new to me today: No - Critical Care Critical Care patient: No
[2016-06-24] MEDS: INSULIN DETEMIR 100 UNITS/ML MDV SQ SCH (22:22)
[2016-06-25] MEDS: INSULIN SLIDING SCALE (NOVOLOG) 1 VIAL SQ SCH ×2 (06:02→17:07)
[2016-06-25] MEDS: LISINOPRIL 20 MG TABLET (FP) GT SCH (09:06)
[2016-06-25] MEDS: amLODIPine BESYLATE 10 MG TABLET (FP) GT SCH (09:06)
[2016-06-25] MEDS: METOPROLOL TARTRATE 50 MG TABLET (FP) GT SCH ×2 (09:06→21:14)
[2016-06-25] MEDS: LACTOBACILLUS ACIDOPHILUS 1 EACH TAB (FP) PO SCH (09:06)
[2016-06-25] MEDS: AMINO ACIDS/PROTEIN HYDROLYS SUGAR-FREE 30 ML PACKET PO SCH ×2 (09:07→17:13)
[2016-06-25] MEDS: PANTOPRAZOLE SOD 40 MG SUSPENSION PACKET GT SCH (09:10)
[2016-06-25] MEDS: MULTIVITAMINS THERAPEUTIC GT SCH (09:11)
[2016-06-25] MEDS: SCOPOLAMINE HYDROBROMIDE 1 PATCH PATCH.TD72 TD SCH (16:12)
--- NOTE | 2016-06-25 19:17 | PN ---
Physical Exam: SUBJECTIVE: Patient seen and examined OBJECTIVE: Vital Signs Period Temp Pulse Resp BP Sys/Santiago Pulse Ox Last 24 Hr 98.2 F-98.6 F 68-74 18-20 131-164/76-97 95-98 GENERAL/NEURO: Eyes open. Non-verbal. Does not follow commands. Non-purposeful movement. HEAD: Normal with no signs of trauma. Trach. EYES: PERRL, extraocular movements intact, sclera anicteric, conjunctiva clear. No ptosis. ENT: Ears normal, nares patent, oropharynx clear without exudates, moist mucous membranes. LUNGS: CTA; on trach collar; no wheezing, no rhonchi, no accessory muscle use. HEART: Regular rate and rhythm, S1, S2 without murmur, rub or gallop. ABDOMEN: Soft, nontender, nondistended, normoactive bowel sounds, no guarding, no rebound, no hepatosplenomegaly, no masses. PEG tube. EXTREMITIES: 2+ pulses, warm, well-perfused, no edema. SKIN: Three stage II and III sacral pressure ulcers, not visualized today CBCD WBC 6.0 K/mm3 (4.0-10.0) 06/19/16 07:15 RBC 3.87 M/mm3 (4.00-5.60) L 06/19/16 07:15 Hgb 11.0 GM/dL (11.7-16.9) L 06/19/16 07:15 Hct 33.2 % (35.4-49) L 06/19/16 07:15 MCV 85.9 fl (80-96) 06/19/16 07:15 MCHC 33.2 g/dl (32.0-35.9) 06/19/16 07:15 RDW 16.3 % (11.9-15.9) H 06/19/16 07:15 Plt Count 189 K/MM3 (134-434) 06/19/16 07:15 MPV 9.5 fl (7.5-11.1) D 06/19/16 07:15 CMP Sodium 143 mmol/L (136-145) 06/19/16 07:15 Potassium 3.8 mmol/L (3.5-5.1) 06/19/16 07:15 Chloride 106 mmol/L (98-107) 06/19/16 07:15 Carbon Dioxide 30 mmol/L (21-32) 06/19/16 07:15 Anion Gap 7 (8-16) L 06/19/16 07:15 BUN 27 mg/dL (7-18) H D 06/19/16 07:15 Creatinine 0.9 mg/dL (0.7-1.3) 06/19/16 07:15 Creat Clearance w eGFR > 60 (>60) 06/14/16 07:10 Calcium 9.5 mg/dL (8.5-10.1) 06/19/16 07:15 Total Bilirubin 0.5 mg/dL (0.2-1.0) D 06/14/16 07:10 AST 21 U/L (15-37) D 06/14/16 07:10 ALT 39 U/L (12-78) D 06/14/16 07:10 Alkaline Phosphatase 127 U/L (45-117) H 06/14/16 07:10 Total Protein 7.9 g/dl (6.4-8.2) 06/14/16 07:10 Albumin 3.5 g/dl (3.4-5.0) 06/14/16 07:10 Active Medications Generic Name Dose Route Start Last Admin Trade Name Freq PRN Reason Stop Dose Admin Acetaminophen 650 mg 05/26/16 14:23 06/01/16 01:47 Tylenol Oral Solution - GT 650 mg Q4H PRN Administration FEVER Amino Acids 30 ml 06/14/16 08:00 06/25/16 17:13 Prostat Sugar-Free Packet - PO 30 ml BID@0800,1730 KWAKU Administration Amlodipine Besylate 10 mg 12/30/15 10:00 06/25/16 09:06 Norvasc - GT 10 mg DAILY KWAKU Administration Guaifenesin 10 ml 12/29/15 10:43 05/16/16 10:16 Robitussin Dm - PO 10 ml Q6H PRN Administration COUGH Insulin Aspart 1 vial 01/28/16 16:30 06/25/16 17:07 Novolog Vial Sliding Scale - SQ Not Given BIDI [facility] Protocol Insulin Detemir 14 units 05/05/16 22:00 06/24/16 22:22 Levemir Vial SQ 14 units HS KWAKU Administration Lactobacillus Acidophilus 1 tab 12/30/15 10:00 06/25/16 09:06 Bacid - PO 1 tab DAILY KWAKU Administration Lisinopril 40 mg 12/30/15 10:00 06/25/16 09:06 Prinivil - GT 40 mg DAILY KWAKU Administration Metoprolol Tartrate 150 mg 12/29/15 22:00 06/25/16 09:06 Lopressor - GT 150 mg BID KWAKU Administration Metoprolol Tartrate 5 mg 12/29/15 10:43 Lopressor Injection - IVPB Q6H PRN HYPERTENSION Multivitamins 5 ml 12/30/15 10:00 06/25/16 09:11 Thera-Plus - GT 5 ml DAILY KWAKU Administration Pantoprazole Sodium 40 mg 12/30/15 10:00 06/25/16 09:10 Protonix Packets For Oral Suspension - GT 40 mg DAILY KWAKU Administration Scopolamine HBr 1 patch 05/20/16 15:45 06/25/16 16:12 Transderm-Scop - TD 1 patch Q72H KWAKU Administration ASSESSMENT/PLAN: 75 year old male with PMHx of HTN, IDDM, inguinal hernia who presented to the ED with diverticular bleed s/p right hemicolectomy. 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 Hydronephrosis, chronic --renal function stable Right inguinal hernia --incidental finding on CT --no surgical intervention at this time Anoxic brain injury s/p brainstem CVAs --mental status unchanged Respiratory failure secondary to anoxic brain injury --cont trach collar --Duonebs PRN HTN --BP well-controlled --continue lisinopril, metoprolol, amlodipine Multiple pressure ulcers --three (3) stage II and III sacral pressure ulcers --Allevyn dressing IDDM --Levemir --Novolog sliding scale coverage --fingersticks DVT prophylaxis: SCDs, no chemical anticoagulation Dispo: Tomorrow weekly lab draw and ECG. DNR/DNI. Visit Type - Emergency Visit Emergency Visit: Yes ED Registration Date: 06/27/15 Care time: The patient presented to the Emergency Department on the above date and was hospitalized for further evaluation of their emergent condition. - New Patient This patient is new to me today: No - Critical Care Critical Care patient: No
[2016-06-25] MEDS: INSULIN DETEMIR 100 UNITS/ML MDV SQ SCH (21:13)
[2016-06-26] MEDS: INSULIN SLIDING SCALE (NOVOLOG) 1 VIAL SQ SCH ×2 (06:06→17:10)
[2016-06-26] MEDS: AMINO ACIDS/PROTEIN HYDROLYS SUGAR-FREE 30 ML PACKET PO SCH ×2 (08:34→17:10)
[2016-06-26] MEDS: amLODIPine BESYLATE 10 MG TABLET (FP) GT SCH (09:39)
[2016-06-26] MEDS: LISINOPRIL 20 MG TABLET (FP) GT SCH (09:39)
[2016-06-26] MEDS: METOPROLOL TARTRATE 50 MG TABLET (FP) GT SCH ×2 (09:39→22:13)
[2016-06-26] MEDS: LACTOBACILLUS ACIDOPHILUS 1 EACH TAB (FP) PO SCH (09:39)
[2016-06-26] MEDS: PANTOPRAZOLE SOD 40 MG SUSPENSION PACKET GT SCH (09:40)
[2016-06-26] MEDS: MULTIVITAMINS THERAPEUTIC GT SCH (09:40)
[2016-06-26 11:25] LABS: BASOPHIL 1.1 % (0-2.0); EOSINOPHIL 4.8 % (0-4.5); MCH 27.8 pg (25.7-33.7); MCHC 32.6 g/dl (32.0-35.9); MEAN CELL VOLUME 85.4 fl (80-96); MEAN PLT VOLUME 9.3 fl (7.5-11.1); PLATELET COUNT 136 K/MM3 (134-434); RDW 16.3 % (11.9-15.9); WHITE BLOOD COUNT 6.4 K/mm3 (4.0-10.0)
[2016-06-26 11:49] LABS: ALBUMIN 3.3 g/dl (3.4-5.0); ALK PHOS 130 U/L (45-117); ANION GAP 4 (8-16); BILIRUBIN,TOTAL 0.3 mg/dL (0.2-1.0); CALCIUM 9.4 mg/dL (8.5-10.1); CO2 32 mmol/L (21-32); CREATININE 0.8 mg/dL (0.7-1.3); GLUCOSE,RANDOM 136 mg/dL (74-106); MAGNESIUM 2.2 mg/dL (1.8-2.4); SGOT/AST 34 U/L (15-37); SGPT/ALT 61 U/L (12-78); TOT PROT 7.5 g/dl (6.4-8.2)
--- NOTE | 2016-06-26 12:43 | EKG ---
Test Reason : Blood Pressure : / mmHG Vent. Rate : 067 BPM Atrial Rate : 067 BPM P-R Int : 172 ms QRS Dur : 094 ms QT Int : 430 ms P-R-T Axes : 048 -26 -10 degrees QTc Int : 454 ms NORMAL SINUS RHYTHM VOLTAGE CRITERIA FOR LEFT VENTRICULAR HYPERTROPHY ABNORMAL ECG WHEN COMPARED WITH ECG OF 07-JUN-2016 08:57, NO SIGNIFICANT CHANGE WAS FOUND Confirmed by CARMINA ORDAZ MD ([id number]) on 06/26/2016 12:43:10 PM Referred By: JANELL ALANIZ Overread By: CARMINA ORDAZ MD
--- NOTE | 2016-06-26 16:39 | PN ---
Physical Exam: SUBJECTIVE: Patient seen and examined. OBJECTIVE: Vital Signs Period Temp Pulse Resp BP Sys/Santiago Pulse Ox Last 24 Hr 98.0 F-99.2 F 54-75 20-24 140-161/72-92 94-95 GENERAL/NEURO: Eyes open. Non-verbal. Does not follow commands. Non-purposeful movement. HEAD: Normal with no signs of trauma. Trach. EYES: PERRL, extraocular movements intact, sclera anicteric, conjunctiva clear. No ptosis. ENT: Ears normal, nares patent, oropharynx clear without exudates, moist mucous membranes. LUNGS: CTA; on trach collar; no wheezing, no rhonchi, no accessory muscle use. HEART: Regular rate and rhythm, S1, S2 without murmur, rub or gallop. ABDOMEN: Soft, nontender, nondistended, normoactive bowel sounds, no guarding, no rebound, no hepatosplenomegaly, no masses. PEG tube. EXTREMITIES: 2+ pulses, warm, well-perfused, no edema. Laboratory Results - last 24 hr 06/26/16 06/26/16 06/26/16 05:57 11:14 11:14 WBC 6.4 RBC 3.78 L Hgb 10.5 L Hct 32.2 L MCV 85.4 MCHC 32.6 RDW 16.3 H Plt Count 136 D MPV 9.3 Neutrophils % 58.0 Lymphocytes % 29.9 Monocytes % 6.2 Eosinophils % 4.8 H Basophils % 1.1 Sodium 140 Potassium 3.7 Chloride 104 Carbon Dioxide 32 Anion Gap 4 L BUN 25 H Creatinine 0.8 Creat Clearance w eGFR > 60 POC Glucometer 121 Random Glucose 136 H Calcium 9.4 Magnesium 2.2 Total Bilirubin 0.3 D AST 34 D ALT 61 D Alkaline Phosphatase 130 H Total Protein 7.5 Albumin 3.3 L Active Medications Generic Name Dose Route Start Last Admin Trade Name Freq PRN Reason Stop Dose Admin Acetaminophen 650 mg 05/26/16 14:23 06/01/16 01:47 Tylenol Oral Solution - GT 650 mg Q4H PRN Administration FEVER Amino Acids 30 ml 06/14/16 08:00 06/26/16 08:34 Prostat Sugar-Free Packet - PO 30 ml BID@0800,1730 KWAKU Administration Amlodipine Besylate 10 mg 12/30/15 10:00 06/26/16 09:39 Norvasc - GT 10 mg DAILY KWAKU Administration Guaifenesin 10 ml 12/29/15 10:43 05/16/16 10:16 Robitussin Dm - PO 10 ml Q6H PRN Administration COUGH Insulin Aspart 1 vial 01/28/16 16:30 06/26/16 06:06 Novolog Vial Sliding Scale - SQ Not Given BIDI [facility] Protocol Insulin Detemir 14 units 05/05/16 22:00 06/25/16 21:13 Levemir Vial SQ 14 units HS KWAKU Administration Lactobacillus Acidophilus 1 tab 12/30/15 10:00 06/26/16 09:39 Bacid - PO 1 tab DAILY KWAKU Administration Lisinopril 40 mg 12/30/15 10:00 06/26/16 09:39 Prinivil - GT 40 mg DAILY KWAKU Administration Metoprolol Tartrate 150 mg 12/29/15 22:00 06/26/16 09:39 Lopressor - GT 150 mg BID KWAKU Administration Metoprolol Tartrate 5 mg 12/29/15 10:43 Lopressor Injection - IVPB Q6H PRN HYPERTENSION Multivitamins 5 ml 12/30/15 10:00 06/26/16 09:40 Thera-Plus - GT 5 ml DAILY KWAKU Administration Pantoprazole Sodium 40 mg 12/30/15 10:00 06/26/16 09:40 Protonix Packets For Oral Suspension - GT 40 mg DAILY KWAKU Administration Scopolamine HBr 1 patch 05/20/16 15:45 06/25/16 16:12 Transderm-Scop - TD 1 patch Q72H KWAKU Administration ASSESSMENT/PLAN: 75 year old male with PMHx of HTN, IDDM, inguinal hernia who presented to the ED with diverticular bleed s/p right hemicolectomy. 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 Today is the patient's one year anniversary as an inpatient in this hospital. Hydronephrosis, chronic --renal function stable Right inguinal hernia --incidental finding on CT --no surgical intervention at this time Anoxic brain injury s/p brainstem CVAs --mental status unchanged Respiratory failure secondary to anoxic brain injury --cont trach collar --Duonebs PRN HTN --BP well-controlled --continue lisinopril, metoprolol, amlodipine Multiple pressure ulcers --three (3) stage II and III sacral pressure ulcers --Allevyn dressing IDDM --Levemir --Novolog sliding scale coverage --fingersticks DVT prophylaxis: SCDs, no chemical anticoagulation Dispo: continues to require inpatient care. DNR/DNI. Visit Type - Emergency Visit Emergency Visit: Yes ED Registration Date: 06/27/15 Care time: The patient presented to the Emergency Department on the above date and was hospitalized for further evaluation of their emergent condition. - New Patient This patient is new to me today: No - Critical Care Critical Care patient: No
[2016-06-26] MEDS: INSULIN DETEMIR 100 UNITS/ML MDV SQ SCH (22:12)
[2016-06-27] MEDS: INSULIN SLIDING SCALE (NOVOLOG) 1 VIAL SQ SCH ×3 (07:02→18:09)
[2016-06-27] MEDS: LACTOBACILLUS ACIDOPHILUS 1 EACH TAB (FP) PO SCH (09:24)
[2016-06-27] MEDS: AMINO ACIDS/PROTEIN HYDROLYS SUGAR-FREE 30 ML PACKET PO SCH (09:24)
[2016-06-27] MEDS: METOPROLOL TARTRATE 50 MG TABLET (FP) GT SCH ×2 (09:24→21:09)
[2016-06-27] MEDS: LISINOPRIL 20 MG TABLET (FP) GT SCH (09:24)
[2016-06-27] MEDS: amLODIPine BESYLATE 10 MG TABLET (FP) GT SCH (09:25)
[2016-06-27] MEDS: PANTOPRAZOLE SOD 40 MG SUSPENSION PACKET GT SCH (09:25)
[2016-06-27] MEDS: MULTIVITAMINS THERAPEUTIC GT SCH (09:25)
--- NOTE | 2016-06-27 16:07 | PN ---
Physical Exam: SUBJECTIVE: Patient seen and examined OBJECTIVE: Vital Signs Period Temp Pulse Resp BP Sys/Santiago Pulse Ox Last 24 Hr 98.7 F-99.2 F 55-82 20-22 132-155/72-94 97-100 GENERAL/NEURO: Eyes open. Non-verbal. Does not follow commands. Non-purposeful movement. HEAD: Normal with no signs of trauma. Trach. EYES: PERRL, extraocular movements intact, sclera anicteric, conjunctiva clear. No ptosis. ENT: Ears normal, nares patent, oropharynx clear without exudates, moist mucous membranes. LUNGS: CTA; on trach collar; no wheezing, no rhonchi, no accessory muscle use. HEART: Regular rate and rhythm, S1, S2 without murmur, rub or gallop. ABDOMEN: Soft, nontender, nondistended, normoactive bowel sounds, no guarding, no rebound, no hepatosplenomegaly, no masses. PEG tube. EXTREMITIES: 2+ pulses, warm, well-perfused, no edema. CBCD WBC 6.4 K/mm3 (4.0-10.0) 06/26/16 11:14 RBC 3.78 M/mm3 (4.00-5.60) L 06/26/16 11:14 Hgb 10.5 GM/dL (11.7-16.9) L 06/26/16 11:14 Hct 32.2 % (35.4-49) L 06/26/16 11:14 MCV 85.4 fl (80-96) 06/26/16 11:14 MCHC 32.6 g/dl (32.0-35.9) 06/26/16 11:14 RDW 16.3 % (11.9-15.9) H 06/26/16 11:14 Plt Count 136 K/MM3 (134-434) D 06/26/16 11:14 MPV 9.3 fl (7.5-11.1) 06/26/16 11:14 CMP Sodium 140 mmol/L (136-145) 06/26/16 11:14 Potassium 3.7 mmol/L (3.5-5.1) 06/26/16 11:14 Chloride 104 mmol/L (98-107) 06/26/16 11:14 Carbon Dioxide 32 mmol/L (21-32) 06/26/16 11:14 Anion Gap 4 (8-16) L 06/26/16 11:14 BUN 25 mg/dL (7-18) H 06/26/16 11:14 Creatinine 0.8 mg/dL (0.7-1.3) 06/26/16 11:14 Creat Clearance w eGFR > 60 (>60) 06/26/16 11:14 Calcium 9.4 mg/dL (8.5-10.1) 06/26/16 11:14 Total Bilirubin 0.3 mg/dL (0.2-1.0) D 06/26/16 11:14 AST 34 U/L (15-37) D 06/26/16 11:14 ALT 61 U/L (12-78) D 06/26/16 11:14 Alkaline Phosphatase 130 U/L (45-117) H 06/26/16 11:14 Total Protein 7.5 g/dl (6.4-8.2) 06/26/16 11:14 Albumin 3.3 g/dl (3.4-5.0) L 06/26/16 11:14 Active Medications Generic Name Dose Route Start Last Admin Trade Name Freq PRN Reason Stop Dose Admin Acetaminophen 650 mg 05/26/16 14:23 06/01/16 01:47 Tylenol Oral Solution - GT 650 mg Q4H PRN Administration FEVER Amino Acids 30 ml 06/28/16 10:00 Prostat Sugar-Free Packet - PO DAILY KWAKU Amlodipine Besylate 10 mg 12/30/15 10:00 06/27/16 09:25 Norvasc - GT 10 mg DAILY KWAKU Administration Guaifenesin 10 ml 12/29/15 10:43 05/16/16 10:16 Robitussin Dm - PO 10 ml Q6H PRN Administration COUGH Insulin Aspart 1 vial 01/28/16 16:30 06/27/16 07:02 Novolog Vial Sliding Scale - SQ Not Given BIDI [facility] Protocol Insulin Detemir 14 units 05/05/16 22:00 06/26/16 22:12 Levemir Vial SQ 14 units HS KWAKU Administration Lactobacillus Acidophilus 1 tab 12/30/15 10:00 06/27/16 09:24 Bacid - PO 1 tab DAILY KWAKU Administration Lisinopril 40 mg 12/30/15 10:00 06/27/16 09:24 Prinivil - GT 40 mg DAILY KWAKU Administration Metoprolol Tartrate 150 mg 12/29/15 22:00 06/27/16 09:24 Lopressor - GT 150 mg BID KWAKU Administration Metoprolol Tartrate 5 mg 12/29/15 10:43 Lopressor Injection - IVPB Q6H PRN HYPERTENSION Multivitamins 5 ml 12/30/15 10:00 06/27/16 09:25 Thera-Plus - GT 5 ml DAILY KWAKU Administration Pantoprazole Sodium 40 mg 12/30/15 10:00 06/27/16 09:25 Protonix Packets For Oral Suspension - GT 40 mg DAILY KWAKU Administration Scopolamine HBr 1 patch 05/20/16 15:45 06/25/16 16:12 Transderm-Scop - TD 1 patch Q72H KWAKU Administration ASSESSMENT/PLAN: 75 year old male with PMHx of HTN, IDDM, inguinal hernia who presented to the ED with diverticular bleed s/p right hemicolectomy. 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 Today is the patient's one year anniversary as an inpatient in this hospital. Hydronephrosis, chronic --renal function stable Right inguinal hernia --incidental finding on CT --no surgical intervention at this time Anoxic brain injury s/p brainstem CVAs --mental status unchanged Respiratory failure secondary to anoxic brain injury --cont trach collar --Duonebs PRN HTN --BP well-controlled --continue lisinopril, metoprolol, amlodipine Multiple pressure ulcers --three (3) stage II and III sacral pressure ulcers --Allevyn dressing IDDM --Levemir --Novolog sliding scale coverage --fingersticks F/E/N Fluids/Nutrition: Tube feed Glucerna 1.5 @ 60mL/hr + 50mL/hr free water via pump; Prostat decreased today from BID to daily per construction management instructor recommendation Electrolytes: replete as indicated DVT prophylaxis: SCDs, no chemical anticoagulation Dispo: continues to require inpatient care. DNR/DNI. Visit Type - Emergency Visit Emergency Visit: Yes ED Registration Date: 06/27/15 Care time: The patient presented to the Emergency Department on the above date and was hospitalized for further evaluation of their emergent condition. - New Patient This patient is new to me today: No - Critical Care Critical Care patient: No
[2016-06-27] MEDS: INSULIN DETEMIR 100 UNITS/ML MDV SQ SCH (21:09)
[2016-06-28] MEDS: INSULIN SLIDING SCALE (NOVOLOG) 1 VIAL SQ SCH ×2 (06:12→17:58)
[2016-06-28] MEDS: PANTOPRAZOLE SOD 40 MG SUSPENSION PACKET GT SCH (10:02)
[2016-06-28] MEDS: MULTIVITAMINS THERAPEUTIC GT SCH (10:03)
[2016-06-28] MEDS: amLODIPine BESYLATE 10 MG TABLET (FP) GT SCH (10:03)
[2016-06-28] MEDS: LISINOPRIL 20 MG TABLET (FP) GT SCH (10:03)
[2016-06-28] MEDS: METOPROLOL TARTRATE 50 MG TABLET (FP) GT SCH ×2 (10:04→21:22)
[2016-06-28] MEDS: LACTOBACILLUS ACIDOPHILUS 1 EACH TAB (FP) PO SCH (10:04)
[2016-06-28] MEDS: AMINO ACIDS/PROTEIN HYDROLYS SUGAR-FREE 30 ML PACKET PO SCH (10:05)
--- NOTE | 2016-06-28 14:53 | PN ---
Physical Exam: SUBJECTIVE: Patient seen and examined OBJECTIVE: Vital Signs Period Temp Pulse Resp BP Sys/Santiago Pulse Ox Last 24 Hr 97.0 F-99.4 F 73-79 20-22 134-155/73-94 96-100 GENERAL/NEURO: Eyes open. Non-verbal. Does not follow commands. Non-purposeful movement. HEAD: Normal with no signs of trauma. Trach. EYES: PERRL, extraocular movements intact, sclera anicteric, conjunctiva clear. No ptosis. ENT: Ears normal, nares patent, oropharynx clear without exudates, moist mucous membranes. LUNGS: CTA; on trach collar; no wheezing, no rhonchi, no accessory muscle use. HEART: Regular rate and rhythm, S1, S2 without murmur, rub or gallop. ABDOMEN: Soft, nontender, nondistended, normoactive bowel sounds, no guarding, no rebound, no hepatosplenomegaly, no masses. PEG tube. EXTREMITIES: 2+ pulses, warm, well-perfused, no edema. Laboratory Results - last 24 hr 06/27/16 06/28/16 17:13 06:09 POC Glucometer 145 123 CBCD WBC 6.4 K/mm3 (4.0-10.0) 06/26/16 11:14 RBC 3.78 M/mm3 (4.00-5.60) L 06/26/16 11:14 Hgb 10.5 GM/dL (11.7-16.9) L 06/26/16 11:14 Hct 32.2 % (35.4-49) L 06/26/16 11:14 MCV 85.4 fl (80-96) 06/26/16 11:14 MCHC 32.6 g/dl (32.0-35.9) 06/26/16 11:14 RDW 16.3 % (11.9-15.9) H 06/26/16 11:14 Plt Count 136 K/MM3 (134-434) D 06/26/16 11:14 MPV 9.3 fl (7.5-11.1) 06/26/16 11:14 CMP Sodium 140 mmol/L (136-145) 06/26/16 11:14 Potassium 3.7 mmol/L (3.5-5.1) 06/26/16 11:14 Chloride 104 mmol/L (98-107) 06/26/16 11:14 Carbon Dioxide 32 mmol/L (21-32) 06/26/16 11:14 Anion Gap 4 (8-16) L 06/26/16 11:14 BUN 25 mg/dL (7-18) H 06/26/16 11:14 Creatinine 0.8 mg/dL (0.7-1.3) 06/26/16 11:14 Creat Clearance w eGFR > 60 (>60) 06/26/16 11:14 Calcium 9.4 mg/dL (8.5-10.1) 06/26/16 11:14 Total Bilirubin 0.3 mg/dL (0.2-1.0) D 06/26/16 11:14 AST 34 U/L (15-37) D 06/26/16 11:14 ALT 61 U/L (12-78) D 06/26/16 11:14 Alkaline Phosphatase 130 U/L (45-117) H 06/26/16 11:14 Total Protein 7.5 g/dl (6.4-8.2) 06/26/16 11:14 Albumin 3.3 g/dl (3.4-5.0) L 06/26/16 11:14 Active Medications Generic Name Dose Route Start Last Admin Trade Name Ginette PRN Reason Stop Dose Admin Acetaminophen 650 mg 05/26/16 14:23 06/01/16 01:47 Tylenol Oral Solution - GT 650 mg Q4H PRN Administration FEVER Amino Acids 30 ml 06/28/16 10:00 06/28/16 10:05 Prostat Sugar-Free Packet - PO 30 ml DAILY KWAKU Administration Amlodipine Besylate 10 mg 12/30/15 10:00 06/28/16 10:03 Norvasc - GT 10 mg DAILY KWAKU Administration Guaifenesin 10 ml 12/29/15 10:43 05/16/16 10:16 Robitussin Dm - PO 10 ml Q6H PRN Administration COUGH Insulin Aspart 1 vial 01/28/16 16:30 06/28/16 06:12 Novolog Vial Sliding Scale - SQ Not Given BIDI [facility] Protocol Insulin Detemir 14 units 05/05/16 22:00 06/27/16 21:09 Levemir Vial SQ 14 units HS KWAKU Administration Lactobacillus Acidophilus 1 tab 12/30/15 10:00 06/28/16 10:04 Bacid - PO 1 tab DAILY KWAKU Administration Lisinopril 40 mg 12/30/15 10:00 06/28/16 10:03 Prinivil - GT 40 mg DAILY KWAKU Administration Metoprolol Tartrate 150 mg 12/29/15 22:00 06/28/16 10:04 Lopressor - GT 150 mg BID KWAKU Administration Metoprolol Tartrate 5 mg 12/29/15 10:43 Lopressor Injection - IVPB Q6H PRN HYPERTENSION Multivitamins 5 ml 12/30/15 10:00 06/28/16 10:03 Thera-Plus - GT 5 ml DAILY KWAKU Administration Pantoprazole Sodium 40 mg 12/30/15 10:00 06/28/16 10:02 Protonix Packets For Oral Suspension - GT 40 mg DAILY KWAKU Administration Scopolamine HBr 1 patch 05/20/16 15:45 06/25/16 16:12 Transderm-Scop - TD 1 patch Q72H KWAKU Administration ASSESSMENT/PLAN: 75 year old male with PMHx of HTN, IDDM, inguinal hernia who presented to the ED with diverticular bleed s/p right hemicolectomy. 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 Today is the patient's one year anniversary as an inpatient in this hospital. 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 DNR/DNI. Visit Type - Emergency Visit Emergency Visit: Yes ED Registration Date: 06/27/15 Care time: The patient presented to the Emergency Department on the above date and was hospitalized for further evaluation of their emergent condition. - New Patient This patient is new to me today: No - Critical Care Critical Care patient: No
[2016-06-28] MEDS: SCOPOLAMINE HYDROBROMIDE 1 PATCH PATCH.TD72 TD SCH (15:36)
[2016-06-28] MEDS: INSULIN DETEMIR 100 UNITS/ML MDV SQ SCH (21:21)
[2016-06-29] MEDS: INSULIN SLIDING SCALE (NOVOLOG) 1 VIAL SQ SCH ×2 (06:07→18:00)
[2016-06-29] MEDS: MULTIVITAMINS THERAPEUTIC GT SCH (12:35)
[2016-06-29] MEDS: PANTOPRAZOLE SOD 40 MG SUSPENSION PACKET GT SCH (12:36)
[2016-06-29] MEDS: AMINO ACIDS/PROTEIN HYDROLYS SUGAR-FREE 30 ML PACKET PO SCH (12:36)
[2016-06-29] MEDS: METOPROLOL TARTRATE 50 MG TABLET (FP) GT SCH ×2 (12:36→22:35)
[2016-06-29] MEDS: LISINOPRIL 20 MG TABLET (FP) GT SCH (12:37)
[2016-06-29] MEDS: amLODIPine BESYLATE 10 MG TABLET (FP) GT SCH (12:37)
[2016-06-29] MEDS: LACTOBACILLUS ACIDOPHILUS 1 EACH TAB (FP) PO SCH (12:37)
--- NOTE | 2016-06-29 13:08 | PN ---
Progress Note (short form) - Note Progress Note: Hospitalist Progress Note This patient presented to the emergency department and was admitted for further evaluation of their emergent condition. SUBJECTIVE: Patient seen and examined. Patient is nonverbal. Not following commands. OBJECTIVE: Vital Signs Period Temp Pulse Resp BP Sys/Santiago Pulse Ox Last 24 Hr 97.9 F-98.7 F 72-88 20-26 126-152/70-82 95-97 General: No acute distress Neuro: Eye tracking to verbal stimulus Pulm: Tach collar, CTA anteriorly CV: RRR, S1S2 Abd: Soft, non-distended. Normoactive bowel sounds. Peg tube c/d/i Ext: Warm, well-perfused. 2+ DP/PT bilaterally CBCD WBC 6.4 K/mm3 (4.0-10.0) 06/26/16 11:14 RBC 3.78 M/mm3 (4.00-5.60) L 06/26/16 11:14 Hgb 10.5 GM/dL (11.7-16.9) L 06/26/16 11:14 Hct 32.2 % (35.4-49) L 06/26/16 11:14 MCV 85.4 fl (80-96) 06/26/16 11:14 MCHC 32.6 g/dl (32.0-35.9) 06/26/16 11:14 RDW 16.3 % (11.9-15.9) H 06/26/16 11:14 Plt Count 136 K/MM3 (134-434) D 06/26/16 11:14 MPV 9.3 fl (7.5-11.1) 06/26/16 11:14 CMP Sodium 140 mmol/L (136-145) 06/26/16 11:14 Potassium 3.7 mmol/L (3.5-5.1) 06/26/16 11:14 Chloride 104 mmol/L (98-107) 06/26/16 11:14 Carbon Dioxide 32 mmol/L (21-32) 06/26/16 11:14 Anion Gap 4 (8-16) L 06/26/16 11:14 BUN 25 mg/dL (7-18) H 06/26/16 11:14 Creatinine 0.8 mg/dL (0.7-1.3) 06/26/16 11:14 Creat Clearance w eGFR > 60 (>60) 06/26/16 11:14 Calcium 9.4 mg/dL (8.5-10.1) 06/26/16 11:14 Total Bilirubin 0.3 mg/dL (0.2-1.0) D 06/26/16 11:14 AST 34 U/L (15-37) D 06/26/16 11:14 ALT 61 U/L (12-78) D 06/26/16 11:14 Alkaline Phosphatase 130 U/L (45-117) H 06/26/16 11:14 Total Protein 7.5 g/dl (6.4-8.2) 06/26/16 11:14 Albumin 3.3 g/dl (3.4-5.0) L 06/26/16 11:14 Current Medications Generic Name Dose Route Start Last Admin Trade Name Freq PRN Reason Stop Dose Admin Acetaminophen 650 mg 05/26/16 14:23 06/01/16 01:47 Tylenol Oral Solution - GT 650 mg Q4H PRN Administration FEVER Amino Acids 30 ml 06/28/16 10:00 06/29/16 12:36 Prostat Sugar-Free Packet - PO 30 ml DAILY KWAKU Administration Amlodipine Besylate 10 mg 12/30/15 10:00 06/29/16 12:37 Norvasc - GT 10 mg DAILY KWAKU Administration Guaifenesin 10 ml 12/29/15 10:43 05/16/16 10:16 Robitussin Dm - PO 10 ml Q6H PRN Administration COUGH Insulin Aspart 1 vial 01/28/16 16:30 06/29/16 06:07 Novolog Vial Sliding Scale - SQ Not Given [facility]I [facility] Protocol Insulin Detemir 14 units 05/05/16 22:00 06/28/16 21:21 Levemir Vial SQ 14 units HS KWAKU Administration Lactobacillus Acidophilus 1 tab 12/30/15 10:00 06/29/16 12:37 Bacid - PO 1 tab DAILY KWAKU Administration Lisinopril 40 mg 12/30/15 10:00 06/29/16 12:37 Prinivil - GT 40 mg DAILY KWAKU Administration Metoprolol Tartrate 150 mg 12/29/15 22:00 06/29/16 12:36 Lopressor - GT 150 mg BID KWAKU Administration Metoprolol Tartrate 5 mg 12/29/15 10:43 Lopressor Injection - IVPB Q6H PRN HYPERTENSION Multivitamins 5 ml 12/30/15 10:00 06/29/16 12:35 Thera-Plus - GT 5 ml DAILY KWAKU Administration Pantoprazole Sodium 40 mg 12/30/15 10:00 06/29/16 12:36 Protonix Packets For Oral Suspension - GT 40 mg DAILY KWAKU Administration Scopolamine HBr 1 patch 05/20/16 15:45 06/28/16 15:36 Transderm-Scop - TD 1 patch Q72H KWAKU Administration ASSESSMENT/PLAN:75 year old male with PMHx of HTN, IDDM, inguinal hernia who presented to the ED with diverticular bleed s/p Righ hemicolectomy with 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 Febrile - resolved - WBC wnl Anoxic brain injury s/p brainstem CVAs - Mental status unchanged Respiratory failure secondary to anoxic brain injury - Cont trach collar - Duonebs PRN - suctioning prn HTN - Continue lisinopril, metoprolol, amlodipine Multiple pressure ulcers - Turn and position q2h IDDM - Continue Levemir sq qhs - ISS BGM ACHS F/E/N: - Tube feeds Prophylaxis: - SCDs bilaterally - No chemical anticoagulation 2/2 spontaneous gluteal bleed and severe GI bleed - PT
[2016-06-29] MEDS: INSULIN DETEMIR 100 UNITS/ML MDV SQ SCH (22:35)
[2016-06-30] MEDS: INSULIN SLIDING SCALE (NOVOLOG) 1 VIAL SQ SCH ×2 (08:43→17:32)
[2016-06-30] MEDS: METOPROLOL TARTRATE 50 MG TABLET (FP) GT SCH ×2 (10:08→23:42)
[2016-06-30] MEDS: LISINOPRIL 20 MG TABLET (FP) GT SCH (10:08)
[2016-06-30] MEDS: amLODIPine BESYLATE 10 MG TABLET (FP) GT SCH (10:09)
[2016-06-30] MEDS: PANTOPRAZOLE SOD 40 MG SUSPENSION PACKET GT SCH (10:09)
[2016-06-30] MEDS: MULTIVITAMINS THERAPEUTIC GT SCH (10:09)
[2016-06-30] MEDS: LACTOBACILLUS ACIDOPHILUS 1 EACH TAB (FP) PO SCH (10:09)
[2016-06-30] MEDS: AMINO ACIDS/PROTEIN HYDROLYS SUGAR-FREE 30 ML PACKET PO SCH (10:09)
--- NOTE | 2016-06-30 13:48 | PN ---
Progress Note (short form) - Note Progress Note: Hospitalist Progress Note This patient presented to the emergency department and was admitted for further evaluation of their emergent condition. SUBJECTIVE: Patient seen and examined. Patient is nonverbal. Not following commands. OBJECTIVE: Vital Signs Period Temp Pulse Resp BP Sys/Santiago Pulse Ox Last 24 Hr 98.3 F-99.2 F 71-78 22-22 138-150/74-90 97-98 General: No acute distress Neuro: Eye tracking to verbal stimulus Pulm: Tach collar, CTA anteriorly CV: RRR, S1S2 Abd: Soft, non-distended. Normoactive bowel sounds. Peg tube c/d/i Ext: Warm, well-perfused. 2+ DP/PT bilaterally CBCD WBC 6.4 K/mm3 (4.0-10.0) 06/26/16 11:14 RBC 3.78 M/mm3 (4.00-5.60) L 06/26/16 11:14 Hgb 10.5 GM/dL (11.7-16.9) L 06/26/16 11:14 Hct 32.2 % (35.4-49) L 06/26/16 11:14 MCV 85.4 fl (80-96) 06/26/16 11:14 MCHC 32.6 g/dl (32.0-35.9) 06/26/16 11:14 RDW 16.3 % (11.9-15.9) H 06/26/16 11:14 Plt Count 136 K/MM3 (134-434) D 06/26/16 11:14 MPV 9.3 fl (7.5-11.1) 06/26/16 11:14 CMP Sodium 140 mmol/L (136-145) 06/26/16 11:14 Potassium 3.7 mmol/L (3.5-5.1) 06/26/16 11:14 Chloride 104 mmol/L (98-107) 06/26/16 11:14 Carbon Dioxide 32 mmol/L (21-32) 06/26/16 11:14 Anion Gap 4 (8-16) L 06/26/16 11:14 BUN 25 mg/dL (7-18) H 06/26/16 11:14 Creatinine 0.8 mg/dL (0.7-1.3) 06/26/16 11:14 Creat Clearance w eGFR > 60 (>60) 06/26/16 11:14 Calcium 9.4 mg/dL (8.5-10.1) 06/26/16 11:14 Total Bilirubin 0.3 mg/dL (0.2-1.0) D 06/26/16 11:14 AST 34 U/L (15-37) D 06/26/16 11:14 ALT 61 U/L (12-78) D 06/26/16 11:14 Alkaline Phosphatase 130 U/L (45-117) H 06/26/16 11:14 Total Protein 7.5 g/dl (6.4-8.2) 06/26/16 11:14 Albumin 3.3 g/dl (3.4-5.0) L 06/26/16 11:14 Current Medications Generic Name Dose Route Start Last Admin Trade Name Freq PRN Reason Stop Dose Admin Acetaminophen 650 mg 05/26/16 14:23 06/01/16 01:47 Tylenol Oral Solution - GT 650 mg Q4H PRN Administration FEVER Amino Acids 30 ml 06/28/16 10:00 06/30/16 10:09 Prostat Sugar-Free Packet - PO 30 ml DAILY KWAKU Administration Amlodipine Besylate 10 mg 12/30/15 10:00 06/30/16 10:09 Norvasc - GT 10 mg DAILY KWAKU Administration Guaifenesin 10 ml 12/29/15 10:43 05/16/16 10:16 Robitussin Dm - PO 10 ml Q6H PRN Administration COUGH Insulin Aspart 1 vial 01/28/16 16:30 06/30/16 08:43 Novolog Vial Sliding Scale - SQ Not Given BIDI [facility] Protocol Insulin Detemir 14 units 05/05/16 22:00 06/29/16 22:35 Levemir Vial SQ 14 units HS KWAKU Administration Lactobacillus Acidophilus 1 tab 12/30/15 10:00 06/30/16 10:09 Bacid - PO 1 tab DAILY KWAKU Administration Lisinopril 40 mg 12/30/15 10:00 06/30/16 10:08 Prinivil - GT 40 mg DAILY KWAKU Administration Metoprolol Tartrate 150 mg 12/29/15 22:00 06/30/16 10:08 Lopressor - GT 150 mg BID KWAKU Administration Metoprolol Tartrate 5 mg 12/29/15 10:43 Lopressor Injection - IVPB Q6H PRN HYPERTENSION Multivitamins 5 ml 12/30/15 10:00 06/30/16 10:09 Thera-Plus - GT 5 ml DAILY KWAKU Administration Pantoprazole Sodium 40 mg 12/30/15 10:00 06/30/16 10:09 Protonix Packets For Oral Suspension - GT 40 mg DAILY KWAKU Administration Scopolamine HBr 1 patch 05/20/16 15:45 06/28/16 15:36 Transderm-Scop - TD 1 patch Q72H KWAKU Administration ASSESSMENT/PLAN:75 year old male with PMHx of HTN, IDDM, inguinal hernia who presented to the ED with diverticular bleed s/p Righ hemicolectomy with 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 Anoxic brain injury s/p brainstem CVAs - Mental status unchanged Respiratory failure secondary to anoxic brain injury - Cont trach collar - Duonebs PRN - suctioning prn HTN - Continue lisinopril, metoprolol, amlodipine Multiple pressure ulcers - Turn and position q2h IDDM - Continue Levemir sq qhs - ISS BGM ACHS F/E/N: - Tube feeds Prophylaxis: - SCDs bilaterally - No chemical anticoagulation 2/2 spontaneous gluteal bleed and severe GI bleed - PT
[2016-06-30] MEDS: INSULIN DETEMIR 100 UNITS/ML MDV SQ SCH (23:41)
[2016-07-01] MEDS: INSULIN SLIDING SCALE (NOVOLOG) 1 VIAL SQ SCH ×2 (07:23→17:59)
[2016-07-01] MEDS: METOPROLOL TARTRATE 50 MG TABLET (FP) GT SCH ×2 (11:22→21:43)
[2016-07-01] MEDS: LACTOBACILLUS ACIDOPHILUS 1 EACH TAB (FP) PO SCH (11:22)
[2016-07-01] MEDS: LISINOPRIL 20 MG TABLET (FP) GT SCH (11:23)
[2016-07-01] MEDS: amLODIPine BESYLATE 10 MG TABLET (FP) GT SCH (11:23)
[2016-07-01] MEDS: MULTIVITAMINS THERAPEUTIC GT SCH (11:25)
[2016-07-01] MEDS: PANTOPRAZOLE SOD 40 MG SUSPENSION PACKET GT SCH (11:25)
[2016-07-01] MEDS: AMINO ACIDS/PROTEIN HYDROLYS SUGAR-FREE 30 ML PACKET PO SCH (11:25)
--- NOTE | 2016-07-01 12:27 | PN ---
Progress Note (short form) - Note Progress Note: Hospitalist Progress Note This patient presented to the emergency department and was admitted for further evaluation of their emergent condition. SUBJECTIVE: Patient seen and examined. Patient is nonverbal. Not following commands. OBJECTIVE: Vital Signs Period Temp Pulse Resp BP Sys/Santiago Pulse Ox Last 24 Hr 98.2 F-98.9 F 60-88 20-22 145-153/87-91 94-97 General: No acute distress Neuro: Eye tracking to verbal stimulus Pulm: Tach collar, CTA anteriorly, + secretions CV: RRR, S1S2 Abd: Soft, non-distended. Normoactive bowel sounds. Peg tube c/d/i Ext: Warm, well-perfused. 2+ DP/PT bilaterally CBCD WBC 6.4 K/mm3 (4.0-10.0) 06/26/16 11:14 RBC 3.78 M/mm3 (4.00-5.60) L 06/26/16 11:14 Hgb 10.5 GM/dL (11.7-16.9) L 06/26/16 11:14 Hct 32.2 % (35.4-49) L 06/26/16 11:14 MCV 85.4 fl (80-96) 06/26/16 11:14 MCHC 32.6 g/dl (32.0-35.9) 06/26/16 11:14 RDW 16.3 % (11.9-15.9) H 06/26/16 11:14 Plt Count 136 K/MM3 (134-434) D 06/26/16 11:14 MPV 9.3 fl (7.5-11.1) 06/26/16 11:14 CMP Sodium 140 mmol/L (136-145) 06/26/16 11:14 Potassium 3.7 mmol/L (3.5-5.1) 06/26/16 11:14 Chloride 104 mmol/L (98-107) 06/26/16 11:14 Carbon Dioxide 32 mmol/L (21-32) 06/26/16 11:14 Anion Gap 4 (8-16) L 06/26/16 11:14 BUN 25 mg/dL (7-18) H 06/26/16 11:14 Creatinine 0.8 mg/dL (0.7-1.3) 06/26/16 11:14 Creat Clearance w eGFR > 60 (>60) 06/26/16 11:14 Calcium 9.4 mg/dL (8.5-10.1) 06/26/16 11:14 Total Bilirubin 0.3 mg/dL (0.2-1.0) D 06/26/16 11:14 AST 34 U/L (15-37) D 06/26/16 11:14 ALT 61 U/L (12-78) D 06/26/16 11:14 Alkaline Phosphatase 130 U/L (45-117) H 06/26/16 11:14 Total Protein 7.5 g/dl (6.4-8.2) 06/26/16 11:14 Albumin 3.3 g/dl (3.4-5.0) L 06/26/16 11:14 Current Medications Generic Name Dose Route Start Last Admin Trade Name Freq PRN Reason Stop Dose Admin Acetaminophen 650 mg 05/26/16 14:23 06/01/16 01:47 Tylenol Oral Solution - GT 650 mg Q4H PRN Administration FEVER Amino Acids 30 ml 06/28/16 10:00 07/01/16 11:25 Prostat Sugar-Free Packet - PO 30 ml DAILY KWAKU Administration Amlodipine Besylate 10 mg 12/30/15 10:00 07/01/16 11:23 Norvasc - GT 10 mg DAILY KWAKU Administration Guaifenesin 10 ml 12/29/15 10:43 05/16/16 10:16 Robitussin Dm - PO 10 ml Q6H PRN Administration COUGH Insulin Aspart 1 vial 01/28/16 16:30 07/01/16 07:23 Novolog Vial Sliding Scale - SQ Not Given BIDI [facility] Protocol Insulin Detemir 14 units 05/05/16 22:00 06/30/16 23:41 Levemir Vial SQ 14 units HS KWAKU Administration Lactobacillus Acidophilus 1 tab 12/30/15 10:00 07/01/16 11:22 Bacid - PO 1 tab DAILY KWAKU Administration Lisinopril 40 mg 12/30/15 10:00 07/01/16 11:23 Prinivil - GT 40 mg DAILY KWAKU Administration Metoprolol Tartrate 150 mg 12/29/15 22:00 07/01/16 11:22 Lopressor - GT 150 mg BID KWAKU Administration Metoprolol Tartrate 5 mg 12/29/15 10:43 Lopressor Injection - IVPB Q6H PRN HYPERTENSION Multivitamins 5 ml 12/30/15 10:00 07/01/16 11:25 Thera-Plus - GT 5 ml DAILY KWAKU Administration Pantoprazole Sodium 40 mg 12/30/15 10:00 07/01/16 11:25 Protonix Packets For Oral Suspension - GT 40 mg DAILY KWAKU Administration Scopolamine HBr 1 patch 05/20/16 15:45 06/28/16 15:36 Transderm-Scop - TD 1 patch Q72H KWAKU Administration ASSESSMENT/PLAN:75 year old male with PMHx of HTN, IDDM, inguinal hernia who presented to the ED with diverticular bleed s/p Righ hemicolectomy with 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 Anoxic brain injury s/p brainstem CVAs - Mental status unchanged Respiratory failure secondary to anoxic brain injury - Cont trach collar - Duonebs PRN - suctioning prn HTN - Continue lisinopril, metoprolol, amlodipine Multiple pressure ulcers - Turn and position q2h IDDM - Continue Levemir sq qhs - ISS BGM ACHS F/E/N: - Tube feeds Prophylaxis: - SCDs bilaterally - No chemical anticoagulation 2/2 spontaneous gluteal bleed and severe GI bleed - PT
[2016-07-01] MEDS: SCOPOLAMINE HYDROBROMIDE 1 PATCH PATCH.TD72 TD SCH (17:56)
[2016-07-01] MEDS: INSULIN DETEMIR 100 UNITS/ML MDV SQ SCH (21:42)
[2016-07-02] MEDS: INSULIN SLIDING SCALE (NOVOLOG) 1 VIAL SQ SCH ×2 (06:17→17:31)
[2016-07-02] MEDS: LACTOBACILLUS ACIDOPHILUS 1 EACH TAB (FP) PO SCH (10:07)
[2016-07-02] MEDS: amLODIPine BESYLATE 10 MG TABLET (FP) GT SCH (10:07)
[2016-07-02] MEDS: LISINOPRIL 20 MG TABLET (FP) GT SCH (10:07)
[2016-07-02] MEDS: PANTOPRAZOLE SOD 40 MG SUSPENSION PACKET GT SCH (10:07)
[2016-07-02] MEDS: METOPROLOL TARTRATE 50 MG TABLET (FP) GT SCH ×2 (10:07→21:43)
[2016-07-02] MEDS: AMINO ACIDS/PROTEIN HYDROLYS SUGAR-FREE 30 ML PACKET PO SCH (10:08)
[2016-07-02] MEDS: MULTIVITAMINS THERAPEUTIC GT SCH (10:08)
[2016-07-02] MEDS: ALBUTEROL SO4 2.5/IPRATROPIUM 0.5 INH SOL 3 ML VIAL.NEB. NEB PRN (13:57)
--- NOTE | 2016-07-02 15:13 | PN ---
Physical Exam: SUBJECTIVE: Patient seen and examined OBJECTIVE: Vital Signs Period Temp Pulse Resp BP Sys/Santiago Pulse Ox Last 24 Hr 98.0 F-98.8 F 73-88 20-22 143-160/66-89 95-98 GENERAL/NEURO: Eyes open. Non-verbal. Does not follow commands. Non-purposeful movement. HEAD: Normal with no signs of trauma. Trach. EYES: PERRL, extraocular movements intact, sclera anicteric, conjunctiva clear. No ptosis. ENT: Ears normal, nares patent, oropharynx clear without exudates, moist mucous membranes. LUNGS: CTA; on trach collar; no wheezing, no rhonchi, no accessory muscle use. HEART: Regular rate and rhythm, S1, S2 without murmur, rub or gallop. ABDOMEN: Soft, nontender, nondistended, normoactive bowel sounds, no guarding, no rebound, no hepatosplenomegaly, no masses. PEG tube. EXTREMITIES: 2+ pulses, warm, well-perfused, no edema. CBCD WBC 6.4 K/mm3 (4.0-10.0) 06/26/16 11:14 RBC 3.78 M/mm3 (4.00-5.60) L 06/26/16 11:14 Hgb 10.5 GM/dL (11.7-16.9) L 06/26/16 11:14 Hct 32.2 % (35.4-49) L 06/26/16 11:14 MCV 85.4 fl (80-96) 06/26/16 11:14 MCHC 32.6 g/dl (32.0-35.9) 06/26/16 11:14 RDW 16.3 % (11.9-15.9) H 06/26/16 11:14 Plt Count 136 K/MM3 (134-434) D 06/26/16 11:14 MPV 9.3 fl (7.5-11.1) 06/26/16 11:14 CMP Sodium 140 mmol/L (136-145) 06/26/16 11:14 Potassium 3.7 mmol/L (3.5-5.1) 06/26/16 11:14 Chloride 104 mmol/L (98-107) 06/26/16 11:14 Carbon Dioxide 32 mmol/L (21-32) 06/26/16 11:14 Anion Gap 4 (8-16) L 06/26/16 11:14 BUN 25 mg/dL (7-18) H 06/26/16 11:14 Creatinine 0.8 mg/dL (0.7-1.3) 06/26/16 11:14 Creat Clearance w eGFR > 60 (>60) 06/26/16 11:14 Calcium 9.4 mg/dL (8.5-10.1) 06/26/16 11:14 Total Bilirubin 0.3 mg/dL (0.2-1.0) D 06/26/16 11:14 AST 34 U/L (15-37) D 06/26/16 11:14 ALT 61 U/L (12-78) D 06/26/16 11:14 Alkaline Phosphatase 130 U/L (45-117) H 06/26/16 11:14 Total Protein 7.5 g/dl (6.4-8.2) 06/26/16 11:14 Albumin 3.3 g/dl (3.4-5.0) L 06/26/16 11:14 Laboratory Results - last 24 hr 07/01/16 07/02/16 17:58 06:02 POC Glucometer 136 100 Active Medications Generic Name Dose Route Start Last Admin Trade Name Ginette PRN Reason Stop Dose Admin Acetaminophen 650 mg 05/26/16 14:23 06/01/16 01:47 Tylenol Oral Solution - GT 650 mg Q4H PRN Administration FEVER Albuterol/Ipratropium 1 amp 07/02/16 12:54 07/02/16 13:57 Duoneb - NEB 1 amp Q4H PRN Administration SHORTNESS OF BREATH Amino Acids 30 ml 06/28/16 10:00 07/02/16 10:08 Prostat Sugar-Free Packet - PO 30 ml DAILY KWAKU Administration Amlodipine Besylate 10 mg 12/30/15 10:00 07/02/16 10:07 Norvasc - GT 10 mg DAILY KWAKU Administration Guaifenesin 10 ml 12/29/15 10:43 05/16/16 10:16 Robitussin Dm - PO 10 ml Q6H PRN Administration COUGH Insulin Aspart 1 vial 01/28/16 16:30 07/02/16 06:17 Novolog Vial Sliding Scale - SQ Not Given BIDI [facility] Protocol Insulin Detemir 14 units 05/05/16 22:00 07/01/16 21:42 Levemir Vial SQ 14 units HS KWAKU Administration Lactobacillus Acidophilus 1 tab 12/30/15 10:00 07/02/16 10:07 Bacid - PO 1 tab DAILY KWAKU Administration Lisinopril 40 mg 12/30/15 10:00 07/02/16 10:07 Prinivil - GT 40 mg DAILY KWAKU Administration Metoprolol Tartrate 150 mg 12/29/15 22:00 07/02/16 10:07 Lopressor - GT 150 mg BID KWAKU Administration Metoprolol Tartrate 5 mg 12/29/15 10:43 Lopressor Injection - IVPB Q6H PRN HYPERTENSION Multivitamins 5 ml 12/30/15 10:00 07/02/16 10:08 Thera-Plus - GT 5 ml DAILY KWAKU Administration Pantoprazole Sodium 40 mg 12/30/15 10:00 07/02/16 10:07 Protonix Packets For Oral Suspension - GT 40 mg DAILY KWAKU Administration Scopolamine HBr 1 patch 05/20/16 15:45 07/01/16 17:56 Transderm-Scop - TD 1 patch Q72H KWAKU Administration ASSESSMENT/PLAN: 75 year old male with PMHx of HTN, IDDM, inguinal hernia who presented to the ED with diverticular bleed s/p right hemicolectomy. 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 Today is the patient's one year anniversary as an inpatient in this hospital. 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 DNR/DNI. Visit Type - Emergency Visit Emergency Visit: Yes ED Registration Date: 06/27/15 Care time: The patient presented to the Emergency Department on the above date and was hospitalized for further evaluation of their emergent condition. - New Patient This patient is new to me today: No - Critical Care Critical Care patient: No
[2016-07-02] MEDS: INSULIN DETEMIR 100 UNITS/ML MDV SQ SCH (21:43)
[2016-07-03] MEDS: ALBUTEROL SO4 2.5/IPRATROPIUM 0.5 INH SOL 3 ML VIAL.NEB. NEB PRN (06:36)
[2016-07-03] MEDS: INSULIN SLIDING SCALE (NOVOLOG) 1 VIAL SQ SCH ×2 (06:58→16:32)
[2016-07-03 09:33] LABS: BASOPHIL 1.6 % (0-2.0); EOSINOPHIL 3.7 % (0-4.5); MCH 28.2 pg (25.7-33.7); MCHC 33.1 g/dl (32.0-35.9); MEAN PLT VOLUME 8.9 fl (7.5-11.1); NEUTROPHILS 59.2 % (42.8-82.8); PLATELET COUNT 188 K/MM3 (134-434); RDW 16.4 % (11.9-15.9); WHITE BLOOD COUNT 7.3 K/mm3 (4.0-10.0)
[2016-07-03 10:09] LABS: CALCIUM 9.7 mg/dL (8.5-10.1)
[2016-07-03 10:15] LABS: ALBUMIN 3.5 g/dl (3.4-5.0); ALK PHOS 143 U/L (45-117); ANION GAP 10 (8-16); BILIRUBIN,TOTAL 0.3 mg/dL (0.2-1.0); CO2 28 mmol/L (21-32); CREATININE 0.9 mg/dL (0.7-1.3); GLUCOSE,RANDOM 112 mg/dL (74-106); MAGNESIUM 2.4 mg/dL (1.8-2.4); SGOT/AST 25 U/L (15-37); SGPT/ALT 59 U/L (12-78)
[2016-07-03] MEDS: LISINOPRIL 20 MG TABLET (FP) GT SCH (10:46)
[2016-07-03] MEDS: AMINO ACIDS/PROTEIN HYDROLYS SUGAR-FREE 30 ML PACKET PO SCH (10:47)
[2016-07-03] MEDS: METOPROLOL TARTRATE 50 MG TABLET (FP) GT SCH (10:47)
[2016-07-03] MEDS: LACTOBACILLUS ACIDOPHILUS 1 EACH TAB (FP) PO SCH (10:47)
[2016-07-03] MEDS: PANTOPRAZOLE SOD 40 MG SUSPENSION PACKET GT SCH (10:48)
[2016-07-03] MEDS: MULTIVITAMINS THERAPEUTIC GT SCH (10:49)
[2016-07-03] MEDS: amLODIPine BESYLATE 10 MG TABLET (FP) GT SCH (10:56)
--- NOTE | 2016-07-03 12:30 | PN ---
Physical Exam: SUBJECTIVE: Patient seen and examined OBJECTIVE: Vital Signs Period Temp Pulse Resp BP Sys/Santiago Pulse Ox Last 24 Hr 98.1 F-98.8 F 73-88 20-22 142-152/81-90 98-99 GENERAL/NEURO: Eyes open. Non-verbal. Does not follow commands. Non-purposeful movement. HEAD: Normal with no signs of trauma. Trach. EYES: PERRL, extraocular movements intact, sclera anicteric, conjunctiva clear. No ptosis. ENT: Ears normal, nares patent, oropharynx clear without exudates, moist mucous membranes. LUNGS: CTA; on trach collar; no wheezing, no rhonchi, no accessory muscle use. HEART: Regular rate and rhythm, S1, S2 without murmur, rub or gallop. ABDOMEN: Soft, nontender, nondistended, normoactive bowel sounds, no guarding, no rebound, no hepatosplenomegaly, no masses. PEG tube. EXTREMITIES: 2+ pulses, warm, well-perfused, no edema. Laboratory Results - last 24 hr 07/02/16 07/03/16 07/03/16 17:06 06:00 08:35 WBC 7.3 RBC 3.95 L Hgb 11.1 L Hct 33.5 L MCV 85.0 MCHC 33.1 RDW 16.4 H Plt Count 188 D MPV 8.9 Neutrophils % 59.2 Lymphocytes % 29.7 Monocytes % 5.8 Eosinophils % 3.7 Basophils % 1.6 Sodium Potassium Chloride Carbon Dioxide Anion Gap BUN Creatinine Creat Clearance w eGFR POC Glucometer 134 101 Random Glucose Calcium Magnesium Total Bilirubin AST ALT Alkaline Phosphatase Total Protein Albumin 07/03/16 08:35 WBC RBC Hgb Hct MCV MCHC RDW Plt Count MPV Neutrophils % Lymphocytes % Monocytes % Eosinophils % Basophils % Sodium 142 Potassium 3.8 Chloride 104 Carbon Dioxide 28 Anion Gap 10 BUN 23 H Creatinine 0.9 Creat Clearance w eGFR > 60 POC Glucometer Random Glucose 112 H Calcium 9.7 Magnesium 2.4 Total Bilirubin 0.3 AST 25 D ALT 59 Alkaline Phosphatase 143 H Total Protein 8.0 Albumin 3.5 Active Medications Generic Name Dose Route Start Last Admin Trade Name Freq PRN Reason Stop Dose Admin Acetaminophen 650 mg 05/26/16 14:23 06/01/16 01:47 Tylenol Oral Solution - GT 650 mg Q4H PRN Administration FEVER Albuterol/Ipratropium 1 amp 07/02/16 12:54 07/03/16 06:36 Duoneb - NEB 1 amp Q4H PRN Administration SHORTNESS OF BREATH Amino Acids 30 ml 06/28/16 10:00 07/03/16 10:47 Prostat Sugar-Free Packet - PO 30 ml DAILY KWAKU Administration Amlodipine Besylate 10 mg 12/30/15 10:00 07/03/16 10:56 Norvasc - GT 10 mg DAILY KWAKU Administration Guaifenesin 10 ml 12/29/15 10:43 05/16/16 10:16 Robitussin Dm - PO 10 ml Q6H PRN Administration COUGH Insulin Aspart 1 vial 01/28/16 16:30 07/03/16 06:58 Novolog Vial Sliding Scale - SQ Not Given BIDI [facility] Protocol Insulin Detemir 14 units 05/05/16 22:00 07/02/16 21:43 Levemir Vial SQ 14 units HS KWAKU Administration Lactobacillus Acidophilus 1 tab 12/30/15 10:00 07/03/16 10:47 Bacid - PO 1 tab DAILY KWAKU Administration Lisinopril 40 mg 12/30/15 10:00 07/03/16 10:46 Prinivil - GT 40 mg DAILY KWAKU Administration Metoprolol Tartrate 150 mg 12/29/15 22:00 07/03/16 10:47 Lopressor - GT 150 mg BID KWAKU Administration Metoprolol Tartrate 5 mg 12/29/15 10:43 Lopressor Injection - IVPB Q6H PRN HYPERTENSION Multivitamins 5 ml 12/30/15 10:00 07/03/16 10:49 Thera-Plus - GT 5 ml DAILY KWAKU Administration Pantoprazole Sodium 40 mg 12/30/15 10:00 07/03/16 10:48 Protonix Packets For Oral Suspension - GT 40 mg DAILY KWAKU Administration Scopolamine HBr 1 patch 05/20/16 15:45 07/01/16 17:56 Transderm-Scop - TD 1 patch Q72H KWAKU Administration ASSESSMENT/PLAN: 75 year old male with PMHx of HTN, IDDM, inguinal hernia who presented to the ED with diverticular bleed s/p right hemicolectomy. 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 Weekly labs and ECG done and reviewed today. Hydronephrosis, chronic --renal function stable Right inguinal hernia --incidental finding on CT --no surgical intervention at this time Anoxic brain injury s/p brainstem CVAs --mental status unchanged Respiratory failure secondary to anoxic brain injury --cont trach collar --Duonebs PRN HTN --BP well-controlled --continue lisinopril, metoprolol, amlodipine Multiple pressure ulcers --Allevyn dressing IDDM --Levemir --Novolog sliding scale coverage --fingersticks F/E/N Fluids/Nutrition: Tube feed Glucerna 1.5 @ 60mL/hr + 50mL/hr free water via pump; Prostat daily Electrolytes: replete as indicated DVT prophylaxis: SCDs, no chemical anticoagulation Dispo: continues to require inpatient care. DNR/DNI. Visit Type - Emergency Visit Emergency Visit: Yes ED Registration Date: 06/27/15 Care time: The patient presented to the Emergency Department on the above date and was hospitalized for further evaluation of their emergent condition. - New Patient This patient is new to me today: No - Critical Care Critical Care patient: No
--- NOTE | 2016-07-03 14:53 | EKG ---
Test Reason : Blood Pressure : / mmHG Vent. Rate : 082 BPM Atrial Rate : 082 BPM P-R Int : 168 ms QRS Dur : 096 ms QT Int : 396 ms P-R-T Axes : 037 -27 -02 degrees QTc Int : 462 ms SINUS RHYTHM WITH OCCASIONAL PREMATURE VENTRICULAR COMPLEXES POSSIBLE LEFT ATRIAL ENLARGEMENT LEFT VENTRICULAR HYPERTROPHY ABNORMAL ECG WHEN COMPARED WITH ECG OF 26-JUN-2016 09:45, PREMATURE VENTRICULAR COMPLEXES ARE NOW PRESENT Confirmed by ORLIN HERRERA, CARMINA ([id number]) on 07/03/2016 2:52:51 PM Referred By: Trini STOKES Overread By: CARMINA ORDAZ MD
--- NOTE | 2016-07-03 15:26 | WOUND ---
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 Cardio/Vascular HTN Gastrointestinal GI Bleed Endocrine Diabetes Mellitus Past Surgical History Past Surgical History Colectomy Social History Smoking history Never smoked Have you smoked in the past 12 No months Hx Alcohol Use No Current Medications Generic Name Dose Route Start Last Admin Trade Name Freq PRN Reason Stop Dose Admin Acetaminophen 650 mg 05/26/16 14:23 06/01/16 01:47 Tylenol Oral Solution - GT 650 mg Q4H PRN Administration FEVER Albuterol/Ipratropium 1 amp 07/02/16 12:54 07/03/16 06:36 Duoneb - NEB 1 amp Q4H PRN Administration SHORTNESS OF BREATH Amino Acids 30 ml 06/28/16 10:00 07/03/16 10:47 Prostat Sugar-Free Packet - PO 30 ml DAILY KWAKU Administration Amlodipine Besylate 10 mg 12/30/15 10:00 07/03/16 10:56 Norvasc - GT 10 mg DAILY KWAKU Administration Guaifenesin 10 ml 12/29/15 10:43 05/16/16 10:16 Robitussin Dm - PO 10 ml Q6H PRN Administration COUGH Insulin Aspart 1 vial 01/28/16 16:30 07/03/16 06:58 Novolog Vial Sliding Scale - SQ Not Given BIDI [facility] Protocol Insulin Detemir 14 units 05/05/16 22:00 07/02/16 21:43 Levemir Vial SQ 14 units HS KWAKU Administration Lactobacillus Acidophilus 1 tab 12/30/15 10:00 07/03/16 10:47 Bacid - PO 1 tab DAILY KWAKU Administration Lisinopril 40 mg 12/30/15 10:00 07/03/16 10:46 Prinivil - GT 40 mg DAILY KWAKU Administration Metoprolol Tartrate 150 mg 12/29/15 22:00 07/03/16 10:47 Lopressor - GT 150 mg BID KWAKU Administration Metoprolol Tartrate 5 mg 12/29/15 10:43 Lopressor Injection - IVPB Q6H PRN HYPERTENSION Multivitamins 5 ml 12/30/15 10:00 07/03/16 10:49 Thera-Plus - GT 5 ml DAILY KWAKU Administration Pantoprazole Sodium 40 mg 12/30/15 10:00 07/03/16 10:48 Protonix Packets For Oral Suspension - GT 40 mg DAILY KWAKU Administration Scopolamine HBr 1 patch 05/20/16 15:45 07/01/16 17:56 Transderm-Scop - TD 1 patch Q72H KWAKU Administration Allergies Allergy/AdvReac Type Severity Reaction Status Date / Time No Known Allergies Allergy Verified 06/26/15 21:31 Physical Exam - Objective Last Vital Signs Temp Pulse Resp BP Pulse Ox 99.0 F 51 L 22 127/71 99 07/03/16 15:04 07/03/16 15:04 07/03/16 15:04 07/03/16 15:04 07/03/16 12:21 Laboratory Last Values WBC 7.3 K/mm3 (4.0-10.0) 07/03/16 08:35 Corrected WBC (auto) Cancelled 06/26/15 21:50 RBC 3.95 M/mm3 (4.00-5.60) L 07/03/16 08:35 Hgb 11.1 GM/dL (11.7-16.9) L 07/03/16 08:35 Hct 33.5 % (35.4-49) L 07/03/16 08:35 MCV 85.0 fl (80-96) 07/03/16 08:35 MCHC 33.1 g/dl (32.0-35.9) 07/03/16 08:35 RDW 16.4 % (11.9-15.9) H 07/03/16 08:35 Plt Count 188 K/MM3 (134-434) D 07/03/16 08:35 MPV 8.9 fl (7.5-11.1) 07/03/16 08:35 Add Manual Diff Cancelled 06/26/15 21:50 Neutrophils % 59.2 % (42.8-82.8) 07/03/16 08:35 Lymphocytes % 29.7 % (8-40) 07/03/16 08:35 Monocytes % 5.8 % (3.8-10.2) 07/03/16 08:35 Eosinophils % 3.7 % (0-4.5) 07/03/16 08:35 Basophils % 1.6 % (0-2.0) 07/03/16 08:35 Band Neutrophils 6.0 % (0-10) 06/28/15 09:35 Differential Comment Slide scanned 05/22/16 06:00 Reactive Lymphocytes 2 % (0-80) 04/30/16 17:00 Smudge Cells Cancelled 06/26/15 21:50 Platelet Estimate Adequate (NORMAL) 05/22/16 06:00 Platelet Comment No clumping noted 05/22/16 06:00 Platelet Comment No clotting detected 05/22/16 06:00 Normal RBC Morphology Cancelled 06/26/15 21:50 RBC Morphology Cancelled 06/26/15 21:50 ESR 100 mm/hr (0-20) H 02/03/16 06:25 INR 1.29 (0.80-1.00) H 12/26/15 08:45 PTT (Actin FS) 28.9 SECONDS (23.5-38.3) 09/03/15 19:20 Anticoagulation Therapy Y 07/11/15 07:07 Puncture Site Right radial 07/11/15 07:07 ABG pH 7.44 (7.35-7.45) 07/11/15 07:07 ABG pCO2 at Pt Temp 42.1 mmHg (35-45) 07/11/15 07:07 ABG pO2 at Pt Temp 113.0 mmHg (70-100) H D 07/11/15 07:07 ABG HCO3 27.8 meq/L (22-26) H 07/11/15 07:07 ABG O2 Sat (Measured) 99.1 % (90-98.9) H 07/11/15 07:07 ABG O2 Content 13.3 % vol (15-22) L 07/11/15 07:07 ABG Base Excess 3.8 meq/l (-2-2) H 07/11/15 07:07 Izaiah Test Positive 07/11/15 07:07 O2 Delivery Device Ventilator 07/11/15 07:07 Oxygen Flow Rate 30% 07/11/15 07:07 Vent Mode A/c 07/11/15 07:07 Vent Rate 10 07/11/15 07:07 Mechanical Rate Yes 07/11/15 07:07 PEEP 5.0 cmH2O 07/11/15 07:07 Pressure Support Vent 500 07/11/15 07:07 Sodium 142 mmol/L (136-145) 07/03/16 08:35 Potassium 3.8 mmol/L (3.5-5.1) 07/03/16 08:35 Chloride 104 mmol/L (98-107) 07/03/16 08:35 Carbon Dioxide 28 mmol/L (21-32) 07/03/16 08:35 Anion Gap 10 (8-16) 07/03/16 08:35 BUN 23 mg/dL (7-18) H 07/03/16 08:35 Creatinine 0.9 mg/dL (0.7-1.3) 07/03/16 08:35 Creat Clearance w eGFR > 60 (>60) 07/03/16 08:35 POC Glucometer 101 UNITS (()) 07/03/16 06:00 Random Glucose 112 mg/dL (74-106) H 07/03/16 08:35 Lactic Acid 1.217 mmol/L (0.4-2.0) 12/25/15 12:45 Calcium 9.7 mg/dL (8.5-10.1) 07/03/16 08:35 Phosphorus 3.4 mg/dL (2.5-4.9) D 06/14/16 07:10 Magnesium 2.4 mg/dL (1.8-2.4) 07/03/16 08:35 Total Bilirubin 0.3 mg/dL (0.2-1.0) 07/03/16 08:35 Direct Bilirubin 0.1 mg/dL (0.0-0.2) 05/19/16 11:00 GGT 29 U/L (5-85) 04/18/16 05:45 AST 25 U/L (15-37) D 07/03/16 08:35 ALT 59 U/L (12-78) 07/03/16 08:35 Alkaline Phosphatase 143 U/L (45-117) H 07/03/16 08:35 Creatine Kinase 62 IU/L (38-174) 06/28/15 09:35 Creatine Kinase Index 0.7 % (0.0-5.0) 06/26/15 21:50 CK-MB (CK-2) 1.077 ng/ml (0.3-4.0) 06/26/15 21:50 CK-MB (CK-2) Rel Index Cancelled 06/26/15 21:50 Troponin I 0.07 ng/ml (0.03-0.5) D 07/09/15 05:00 C-Reactive Protein 2.1 MG/DL (0.00-0.3) H 09/03/15 07:30 Total Protein 8.0 g/dl (6.4-8.2) 07/03/16 08:35 Albumin 3.5 g/dl (3.4-5.0) 07/03/16 08:35 Triglycerides 143 mg/dL (35-160) D 09/02/15 06:30 Cholesterol 106 mg/dL (50-200) D 09/02/15 06:30 Total LDL Cholesterol 66 mg/dL 09/02/15 06:30 HDL Cholesterol 26 mg/dL (40-60) L D 09/02/15 06:30 Lipase 172 U/L (73-393) 05/19/16 11:00 Prolactin 19.8 ng/ml (4.0-15.2) H 07/02/15 05:20 Urine Color Yellow 06/14/16 15:15 Urine Appearance Slcloudy 06/14/16 15:15 Urine pH 7.0 (5.0-8.0) 06/14/16 15:15 Ur Specific [place] 1.016 (1.001-1.035) 06/14/16 15:15 Urine Protein Negative (NEGATIVE) 06/14/16 15:15 Urine Glucose (UA) Negative (NEGATIVE) 06/14/16 15:15 Urine Ketones Negative (NEGATIVE) 06/14/16 15:15 Urine Blood Negative (NEGATIVE) 06/14/16 15:15 Urine Nitrite Negative (NEGATIVE) 06/14/16 15:15 Urine Bilirubin Negative (NEGATIVE) 06/14/16 15:15 Urine Ictotest Negative (NEGATIVE) 01/29/16 14:44 Urine Urobilinogen Negative E.U./dl (0.2-1.0) 06/14/16 15:15 Ur Leukocyte Esterase Negative (NEGATIVE) 06/14/16 15:15 Urine RBC 90 /hpf (0-3) 05/25/16 21:27 Urine WBC 57 /hpf (3-5) 05/25/16 21:27 Ur Epithelial Cells Rare /hpf (FEW) 05/25/16 21:27 Calcium Oxalate Crystal Few /hpf (NONE SEEN) 01/29/16 14:44 Urine Bacteria Many /hpf (NONE SEEN) 05/25/16 21:27 Hyaline Casts 3 /lpf 01/29/16 14:44 Granular Casts 0 /lpf 01/29/16 14:44 Urine Mucus Many 05/25/16 21:27 Urine Yeast Few 01/29/16 14:44 Stool Occult Blood Negative (NEGATIVE) 07/02/15 12:00 Vancomycin Trough 20.819 ug/ml (5.0-10.0) H* 12/01/15 04:30 Hepatitis C Ab (EIA) <0.1 s/co ratio (0.0-0.9) 07/03/15 05:15 Blood Type O POSITIVE 09/03/15 18:48 Antibody Screen Negative 09/03/15 18:48 Crossmatch See Detail 09/03/15 19:20 Crossmatch IS Only See Detail 06/26/15 21:50 Spec Expiration Date 06/26/15 21:50 Microbiology 06/14/16 11:13 Blood - Peripheral Venous Blood Culture - Final NO GROWTH AFTER 5 DAYS INCUBATION 06/14/16 12:05 Ulcer Gram Stain - Final 06/14/16 12:05 Ulcer Wound Culture - Final Pseudomonas Aeruginosa Enterococcus Faecalis Mr S Aureus Providencia Stuartii 06/14/16 12:05 Sputum - Endotracheal Suction W/O Vent Gram Stain - Final 06/14/16 12:05 Sputum - Endotracheal Suction W/O Vent Sputum Culture - Final Pseudomonas Aeruginosa Morganella Morganii 06/15/16 13:50 Urine - Urine - Catheterized Urine Culture - Final NO GROWTH OBTAINED 06/14/16 15:15 Urine - Urine - Catheterized Urine Culture - Final Contaminated: Please Repeat 06/06/16 13:10 Urine - Urine - Catheterized Urine Culture - Final NO GROWTH OBTAINED 05/30/16 21:30 Stool Clostridium difficile Antigen (MACHO) - Final 05/30/16 21:30 Stool Clostridium difficile Toxin Assay - Final 05/25/16 18:45 Blood - Peripheral Venous Blood Culture - Final NO GROWTH AFTER 5 DAYS INCUBATION 05/25/16 18:45 Blood - Peripheral Venous Blood Culture - Final NO GROWTH AFTER 5 DAYS INCUBATION 05/25/16 18:45 Urine - Urine Schwartz Urine Culture - Final Providencia Stuartii Vr Ec Faecalis 05/05/16 11:00 Blood - Peripheral Venous Blood Culture - Final NO GROWTH AFTER 5 DAYS INCUBATION 05/05/16 11:00 Blood - Peripheral Venous Blood Culture - Final NO GROWTH AFTER 5 DAYS INCUBATION 05/03/16 13:08 Blood - Peripheral Venous Blood Culture - Final NO GROWTH AFTER 5 DAYS INCUBATION 05/03/16 13:08 Blood - Peripheral Venous Blood Culture - Final NO GROWTH AFTER 5 DAYS INCUBATION 05/05/16 19:00 Sputum - Endotracheal Suction W/O Vent Gram Stain - Final 05/05/16 19:00 Sputum - Endotracheal Suction W/O Vent Sputum Culture - Final Pseudomonas Aeruginosa 05/03/16 19:00 Stool Clostridium difficile Antigen (MACHO) - Final 05/03/16 19:00 Stool Clostridium difficile Toxin Assay - Final 05/03/16 15:00 Urine - Urine - Catheterized Urine Culture - Final NO GROWTH OBTAINED - Wound Wound #1 Type of wound: Yes: Pressure ulcer Stage: III (Previously healed Stage III has reopened) Location/laterality: Right buttock Wound size: 0.5cmL x 0.5cmW x 0.1cm D Thickness: Partial Undermining: No Tunneling: No Drainage/exudate: No Wound bed tissue: Yes: Erythematous Wound edges color: Other (White fibrous) Wound edges raised: Yes Wound edges rolled: No Wound edges contracted: No Pain: No Surrounding tissue to 4cm: Yes: Healthy Wound #2 Type of wound: Yes: Pressure ulcer Stage: III (Healing stage III) Location/laterality: Left buttock - superior Wound size: .75cmL x .75cmW x .1cmD Thickness: Partial Undermining: No Tunneling: No Drainage/exudate: No Wound bed tissue: Yes: Erythematous Wound edges color: Other (White fibrous) Wound edges raised: Yes Wound edges rolled: No Wound edges contracted: No Pain: No Surrounding tissue to 4cm: Yes: Healthy Wound #3 Type of wound: Yes: Pressure ulcer Stage: II Location/laterality: Left buttock - inferior Wound size: 0.5cmL x 0.5cmW x 0.1cmD Thickness: Partial Undermining: No Tunneling: No Drainage/exudate: No Wound bed tissue: Yes: Erythematous Wound edges color: Other (White fibrous) Wound edges raised: Yes Wound edges rolled: No Wound edges contracted: No Pain: No Surrounding tissue to 4cm: Yes: Healthy Assessment/Plan Wound #1 Diagnosis: Pressure ulcer Wound specific intervention: Allevyn dressing only Wound #2 Diagnosis: Pressure ulcer Wound specific intervention: Allevyn dressing only Wound #3 Diagnosis: Pressure ulcer Wound specific intervention: Allevyn dressing only Impediments to healing: Limited mobility, Unable to self-position in bed, Hypoalbunemia, Nutritional deficiencies, Incontinence of urine, Incontinence of bowel, Other (Trach collar; PEG) Nutrition/Dietary supplements/vitamins: - continue TF Glucerna 1.5 at goal rate of 60 ml/hr (2160 kcal/118 gm Prot ) - continue water flushes at 50 ml/hr - continue weekly weights for close monitoring Support Surface: Capital Float Bed HOB elevation: 30 degrees Off-loading: Turning/repositioning q2h, Elevate heels off bed with pillows Incontinence management: Avoid diapers; if must be used, do not secure around patient Assessment/Plan Wound #1 Diagnosis: Pressure ulcer Wound #2 Diagnosis: Pressure ulcer Wound #3 Diagnosis: Pressure ulcer 07/02/15 18:00 Blood - Peripheral Venous Blood Culture - Final NO GROWTH AFTER 5 DAYS INCUBATION 07/02/15 18:00 Blood - Peripheral Venous Blood Culture - Final NO GROWTH AFTER 5 DAYS INCUBATION 06/28/15 09:32 Blood - Peripheral Venous Blood Culture - Final NO GROWTH AFTER 5 DAYS INCUBATION 06/28/15 09:32 Blood - Peripheral Venous Blood Culture - Final NO GROWTH AFTER 5 DAYS INCUBATION 06/28/15 17:30 Sputum - Endotrachea Suction/Ventilator Gram Stain - Final 06/28/15 17:30 Sputum - Endotrachea Suction/Ventilator Sputum Culture - Final NORMAL RESPIRATORY ARMNAD 06/27/15 20:30 Urine - Urine Schwartz Urine Culture - Final NO GROWTH OBTAINED 06/28/15 10:00 Urine For Antigen Detection Legionella Antigen - Final 06/28/15 10:00 Urine For Antigen Detection Streptococcus pneumoniae Antigen (M - Final Assessment/Plan Wound #1 Diagnosis: Pressure ulcer Wound #2 Diagnosis: Pressure ulcer Wound #3 Diagnosis: Pressure ulcer
[2016-07-03] MEDS: INSULIN DETEMIR 100 UNITS/ML MDV SQ SCH (22:15)
[2016-07-04] MEDS: METOPROLOL TARTRATE 50 MG TABLET (FP) GT SCH ×3 (00:08→23:33)
[2016-07-04] MEDS: INSULIN SLIDING SCALE (NOVOLOG) 1 VIAL SQ SCH ×2 (06:56→17:08)
[2016-07-04] MEDS: PANTOPRAZOLE SOD 40 MG SUSPENSION PACKET GT SCH (10:08)
[2016-07-04] MEDS: LISINOPRIL 20 MG TABLET (FP) GT SCH (10:08)
[2016-07-04] MEDS: AMINO ACIDS/PROTEIN HYDROLYS SUGAR-FREE 30 ML PACKET PO SCH (10:08)
[2016-07-04] MEDS: amLODIPine BESYLATE 10 MG TABLET (FP) GT SCH (10:09)
[2016-07-04] MEDS: LACTOBACILLUS ACIDOPHILUS 1 EACH TAB (FP) PO SCH (10:09)
--- NOTE | 2016-07-04 10:36 | PN ---
Progress Note (short form) - Note Progress Note: Subjective: Pt seen and examined at bedside. He is non-verbal. Not following commands at this time Current Medications Generic Name Dose Route Start Last Admin Trade Name Ginette PRN Reason Stop Dose Admin Acetaminophen 650 mg 05/26/16 14:23 06/01/16 01:47 Tylenol Oral Solution - GT 650 mg Q4H PRN Administration FEVER Albuterol/Ipratropium 1 amp 07/02/16 12:54 07/03/16 06:36 Duoneb - NEB 1 amp Q4H PRN Administration SHORTNESS OF BREATH Amino Acids 30 ml 06/28/16 10:00 07/03/16 10:47 Prostat Sugar-Free Packet - PO 30 ml DAILY KWAKU Administration Amlodipine Besylate 10 mg 12/30/15 10:00 07/03/16 10:56 Norvasc - GT 10 mg DAILY KWAKU Administration Guaifenesin 10 ml 12/29/15 10:43 05/16/16 10:16 Robitussin Dm - PO 10 ml Q6H PRN Administration COUGH Insulin Aspart 1 vial 01/28/16 16:30 07/04/16 06:56 Novolog Vial Sliding Scale - SQ Not Given BIDI [facility] Protocol Insulin Detemir 14 units 05/05/16 22:00 07/03/16 22:15 Levemir Vial SQ 14 units HS KWAKU Administration Lactobacillus Acidophilus 1 tab 12/30/15 10:00 07/03/16 10:47 Bacid - PO 1 tab DAILY KWAKU Administration Lisinopril 40 mg 12/30/15 10:00 07/03/16 10:46 Prinivil - GT 40 mg DAILY KWAKU Administration Metoprolol Tartrate 150 mg 12/29/15 22:00 07/04/16 00:08 Lopressor - GT 150 mg BID KWAKU Administration Metoprolol Tartrate 5 mg 12/29/15 10:43 Lopressor Injection - IVPB Q6H PRN HYPERTENSION Multivitamins 5 ml 12/30/15 10:00 07/03/16 10:49 Thera-Plus - GT 5 ml DAILY KWAKU Administration Pantoprazole Sodium 40 mg 12/30/15 10:00 07/03/16 10:48 Protonix Packets For Oral Suspension - GT 40 mg DAILY WKAKU Administration Scopolamine HBr 1 patch 05/20/16 15:45 07/01/16 17:56 Transderm-Scop - TD 1 patch Q72H KWAKU Administration Objective: Vital Signs Period Temp Pulse Resp BP Sys/Santiago Pulse Ox Last 24 Hr 97.9 F-99.0 F 51-93 20-22 120-144/71-91 93-99 Physical Exam: General: No acute distress Neuro: Eye tracking to verbal stimulus Pulm: Tach collar, CTA anteriorly CV: RRR, S1S2 Abd: Soft, non-distended. Normoactive bowel sounds. Peg tube c/d/i Ext: Warm, well-perfused. 2+ DP/PT bilaterally CBCD WBC 7.3 K/mm3 (4.0-10.0) 07/03/16 08:35 RBC 3.95 M/mm3 (4.00-5.60) L 07/03/16 08:35 Hgb 11.1 GM/dL (11.7-16.9) L 07/03/16 08:35 Hct 33.5 % (35.4-49) L 07/03/16 08:35 MCV 85.0 fl (80-96) 07/03/16 08:35 MCHC 33.1 g/dl (32.0-35.9) 07/03/16 08:35 RDW 16.4 % (11.9-15.9) H 07/03/16 08:35 Plt Count 188 K/MM3 (134-434) D 07/03/16 08:35 MPV 8.9 fl (7.5-11.1) 07/03/16 08:35 CMP Sodium 142 mmol/L (136-145) 07/03/16 08:35 Potassium 3.8 mmol/L (3.5-5.1) 07/03/16 08:35 Chloride 104 mmol/L (98-107) 07/03/16 08:35 Carbon Dioxide 28 mmol/L (21-32) 07/03/16 08:35 Anion Gap 10 (8-16) 07/03/16 08:35 BUN 23 mg/dL (7-18) H 07/03/16 08:35 Creatinine 0.9 mg/dL (0.7-1.3) 07/03/16 08:35 Creat Clearance w eGFR > 60 (>60) 07/03/16 08:35 Random Glucose 112 mg/dL (74-106) H 07/03/16 08:35 Calcium 9.7 mg/dL (8.5-10.1) 07/03/16 08:35 Total Bilirubin 0.3 mg/dL (0.2-1.0) 07/03/16 08:35 AST 25 U/L (15-37) D 07/03/16 08:35 ALT 59 U/L (12-78) 07/03/16 08:35 Alkaline Phosphatase 143 U/L (45-117) H 07/03/16 08:35 Total Protein 8.0 g/dl (6.4-8.2) 07/03/16 08:35 Albumin 3.5 g/dl (3.4-5.0) 07/03/16 08:35 CARDIAC ENZYMES Creatine Kinase 62 IU/L (38-174) 06/28/15 09:35 Troponin I 0.07 ng/ml (0.03-0.5) D 07/09/15 05:00 Assessment: 75 year old male with PMHx of HTN, IDDM, inguinal hernia who presented to the ED with diverticular bleed s/p Righ hemicolectomy with 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 Plan: 1. Anoxic brain injury s/p brainstem CVAs - Mental status unchanged 2. Respiratory failure secondary to anoxic brain injury - Cont trach collar - Duonebs PRN 3. HTN - Continue lisinopril, metoprolol, amlodipine 4. Multiple pressure ulcers - Turn and position q2h 5. IDDM - Continue Levemir at 14u sq qhs - ISS BGM ACHS 6. F/E/N: - Tube feeds 7. Prophylaxis: - SCDs bilaterally - No chemical anticoagulation 2/2 spontaneous gluteal bleed and severe GI bleed - PT CODE STATUS: DNR
[2016-07-04] MEDS: SCOPOLAMINE HYDROBROMIDE 1 PATCH PATCH.TD72 TD SCH (17:03)
[2016-07-04] MEDS: MULTIVITAMINS THERAPEUTIC GT SCH (19:02)
[2016-07-04] MEDS: INSULIN DETEMIR 100 UNITS/ML MDV SQ SCH (23:32)
[2016-07-05] MEDS: INSULIN SLIDING SCALE (NOVOLOG) 1 VIAL SQ SCH ×2 (06:44→17:33)
[2016-07-05] MEDS: amLODIPine BESYLATE 10 MG TABLET (FP) GT SCH (10:28)
[2016-07-05] MEDS: LACTOBACILLUS ACIDOPHILUS 1 EACH TAB (FP) PO SCH (10:28)
[2016-07-05] MEDS: LISINOPRIL 20 MG TABLET (FP) GT SCH (10:28)
[2016-07-05] MEDS: METOPROLOL TARTRATE 50 MG TABLET (FP) GT SCH ×2 (10:28→21:40)
[2016-07-05] MEDS: AMINO ACIDS/PROTEIN HYDROLYS SUGAR-FREE 30 ML PACKET PO SCH (10:29)
[2016-07-05] MEDS: PANTOPRAZOLE SOD 40 MG SUSPENSION PACKET GT SCH (10:29)
--- NOTE | 2016-07-05 11:28 | PN ---
Progress Note (short form) - Note Progress Note: Subjective: Pt seen and examined at bedside. He is non-verbal. Not following commands at this time Current Medications Generic Name Dose Route Start Last Admin Trade Name Ginette PRN Reason Stop Dose Admin Acetaminophen 650 mg 05/26/16 14:23 06/01/16 01:47 Tylenol Oral Solution - GT 650 mg Q4H PRN Administration FEVER Albuterol/Ipratropium 1 amp 07/02/16 12:54 07/03/16 06:36 Duoneb - NEB 1 amp Q4H PRN Administration SHORTNESS OF BREATH Amino Acids 30 ml 06/28/16 10:00 07/03/16 10:47 Prostat Sugar-Free Packet - PO 30 ml DAILY KWAKU Administration Amlodipine Besylate 10 mg 12/30/15 10:00 07/03/16 10:56 Norvasc - GT 10 mg DAILY KWAKU Administration Guaifenesin 10 ml 12/29/15 10:43 05/16/16 10:16 Robitussin Dm - PO 10 ml Q6H PRN Administration COUGH Insulin Aspart 1 vial 01/28/16 16:30 07/04/16 06:56 Novolog Vial Sliding Scale - SQ Not Given BIDI [facility] Protocol Insulin Detemir 14 units 05/05/16 22:00 07/03/16 22:15 Levemir Vial SQ 14 units HS KWAKU Administration Lactobacillus Acidophilus 1 tab 12/30/15 10:00 07/03/16 10:47 Bacid - PO 1 tab DAILY KWAKU Administration Lisinopril 40 mg 12/30/15 10:00 07/03/16 10:46 Prinivil - GT 40 mg DAILY KWAKU Administration Metoprolol Tartrate 150 mg 12/29/15 22:00 07/04/16 00:08 Lopressor - GT 150 mg BID KWAKU Administration Metoprolol Tartrate 5 mg 12/29/15 10:43 Lopressor Injection - IVPB Q6H PRN HYPERTENSION Multivitamins 5 ml 12/30/15 10:00 07/03/16 10:49 Thera-Plus - GT 5 ml DAILY KWAKU Administration Pantoprazole Sodium 40 mg 12/30/15 10:00 07/03/16 10:48 Protonix Packets For Oral Suspension - GT 40 mg DAILY KWAKU Administration Scopolamine HBr 1 patch 05/20/16 15:45 07/01/16 17:56 Transderm-Scop - TD 1 patch Q72H KWAKU Administration Objective: Vital Signs Period Temp Pulse Resp BP Sys/Santiago Pulse Ox Last 24 Hr 98.8 F-99.9 F 73-87 20-22 136-161/78-91 97-98 Physical Exam: General: No acute distress Neuro: Eye tracking to verbal stimulus Pulm: Tach collar, CTA anteriorly CV: RRR, S1S2 Abd: Soft, non-distended. Normoactive bowel sounds. Peg tube c/d/i Ext: Warm, well-perfused. 2+ DP/PT bilaterally CBCD WBC 7.3 K/mm3 (4.0-10.0) 07/03/16 08:35 RBC 3.95 M/mm3 (4.00-5.60) L 07/03/16 08:35 Hgb 11.1 GM/dL (11.7-16.9) L 07/03/16 08:35 Hct 33.5 % (35.4-49) L 07/03/16 08:35 MCV 85.0 fl (80-96) 07/03/16 08:35 MCHC 33.1 g/dl (32.0-35.9) 07/03/16 08:35 RDW 16.4 % (11.9-15.9) H 07/03/16 08:35 Plt Count 188 K/MM3 (134-434) D 07/03/16 08:35 MPV 8.9 fl (7.5-11.1) 07/03/16 08:35 CMP Sodium 142 mmol/L (136-145) 07/03/16 08:35 Potassium 3.8 mmol/L (3.5-5.1) 07/03/16 08:35 Chloride 104 mmol/L (98-107) 07/03/16 08:35 Carbon Dioxide 28 mmol/L (21-32) 07/03/16 08:35 Anion Gap 10 (8-16) 07/03/16 08:35 BUN 23 mg/dL (7-18) H 07/03/16 08:35 Creatinine 0.9 mg/dL (0.7-1.3) 07/03/16 08:35 Creat Clearance w eGFR > 60 (>60) 07/03/16 08:35 Random Glucose 112 mg/dL (74-106) H 07/03/16 08:35 Calcium 9.7 mg/dL (8.5-10.1) 07/03/16 08:35 Total Bilirubin 0.3 mg/dL (0.2-1.0) 07/03/16 08:35 AST 25 U/L (15-37) D 07/03/16 08:35 ALT 59 U/L (12-78) 07/03/16 08:35 Alkaline Phosphatase 143 U/L (45-117) H 07/03/16 08:35 Total Protein 8.0 g/dl (6.4-8.2) 07/03/16 08:35 Albumin 3.5 g/dl (3.4-5.0) 07/03/16 08:35 CARDIAC ENZYMES Creatine Kinase 62 IU/L (38-174) 06/28/15 09:35 Troponin I 0.07 ng/ml (0.03-0.5) D 07/09/15 05:00 Assessment: 75 year old male with PMHx of HTN, IDDM, inguinal hernia who presented to the ED with diverticular bleed s/p Righ hemicolectomy with 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 Plan: 1. Anoxic brain injury s/p brainstem CVAs - Mental status unchanged 2. Respiratory failure secondary to anoxic brain injury - Cont trach collar - Duonebs PRN 3. HTN - Continue lisinopril, metoprolol, amlodipine 4. Multiple pressure ulcers - Turn and position q2h 5. IDDM - Continue Levemir at 14u sq qhs - ISS BGM ACHS 6. F/E/N: - Tube feeds 7. Prophylaxis: - SCDs bilaterally - No chemical anticoagulation 2/2 spontaneous gluteal bleed and severe GI bleed - Functional quadriplegia CODE STATUS: DNR
[2016-07-05] MEDS: MULTIVITAMINS THERAPEUTIC GT SCH (12:55)
[2016-07-05] MEDS: INSULIN DETEMIR 100 UNITS/ML MDV SQ SCH (21:40)
[2016-07-06] MEDS: INSULIN SLIDING SCALE (NOVOLOG) 1 VIAL SQ SCH ×2 (06:36→18:13)
[2016-07-06] MEDS: LACTOBACILLUS ACIDOPHILUS 1 EACH TAB (FP) PO SCH (09:59)
[2016-07-06] MEDS: METOPROLOL TARTRATE 50 MG TABLET (FP) GT SCH ×2 (10:00→23:13)
[2016-07-06] MEDS: LISINOPRIL 20 MG TABLET (FP) GT SCH (10:00)
[2016-07-06] MEDS: amLODIPine BESYLATE 10 MG TABLET (FP) GT SCH (10:00)
[2016-07-06] MEDS: PANTOPRAZOLE SOD 40 MG SUSPENSION PACKET GT SCH (10:01)
[2016-07-06] MEDS: AMINO ACIDS/PROTEIN HYDROLYS SUGAR-FREE 30 ML PACKET PO SCH (10:01)
--- NOTE | 2016-07-06 11:13 | PN ---
Progress Note (short form) - Note Progress Note: Subjective: Pt seen and examined at bedside. He is non-verbal. Not following commands at this time Current Medications Generic Name Dose Route Start Last Admin Trade Name Ginette PRN Reason Stop Dose Admin Acetaminophen 650 mg 05/26/16 14:23 06/01/16 01:47 Tylenol Oral Solution - GT 650 mg Q4H PRN Administration FEVER Albuterol/Ipratropium 1 amp 07/02/16 12:54 07/03/16 06:36 Duoneb - NEB 1 amp Q4H PRN Administration SHORTNESS OF BREATH Amino Acids 30 ml 06/28/16 10:00 07/06/16 10:01 Prostat Sugar-Free Packet - PO 30 ml DAILY KWAKU Administration Amlodipine Besylate 10 mg 12/30/15 10:00 07/06/16 10:00 Norvasc - GT 10 mg DAILY KWAKU Administration Guaifenesin 10 ml 12/29/15 10:43 05/16/16 10:16 Robitussin Dm - PO 10 ml Q6H PRN Administration COUGH Insulin Aspart 1 vial 01/28/16 16:30 07/06/16 06:36 Novolog Vial Sliding Scale - SQ Not Given BIDI [facility] Protocol Insulin Detemir 14 units 05/05/16 22:00 07/05/16 21:40 Levemir Vial SQ 14 units HS KWAKU Administration Lactobacillus Acidophilus 1 tab 12/30/15 10:00 07/06/16 09:59 Bacid - PO 1 tab DAILY KWAKU Administration Lisinopril 40 mg 12/30/15 10:00 07/06/16 10:00 Prinivil - GT 40 mg DAILY KWAKU Administration Metoprolol Tartrate 150 mg 12/29/15 22:00 07/06/16 10:00 Lopressor - GT 150 mg BID KWAKU Administration Metoprolol Tartrate 5 mg 12/29/15 10:43 Lopressor Injection - IVPB Q6H PRN HYPERTENSION Multivitamins 5 ml 12/30/15 10:00 07/05/16 12:55 Thera-Plus - GT 5 ml DAILY KWAKU Administration Pantoprazole Sodium 40 mg 12/30/15 10:00 07/06/16 10:01 Protonix Packets For Oral Suspension - GT 40 mg DAILY KWAKU Administration Scopolamine HBr 1 patch 05/20/16 15:45 07/04/16 17:03 Transderm-Scop - TD 1 patch Q72H KWAKU Administration Objective: Vital Signs Period Temp Pulse Resp BP Sys/Santiago Pulse Ox Last 24 Hr 98.3 F-99.6 F 67-79 18-22 136-155/68-93 98 Physical Exam: General: No acute distress Neuro: Eye tracking to verbal stimulus Pulm: Tach collar, CTA anteriorly CV: RRR, S1S2 Abd: Soft, non-distended. Normoactive bowel sounds. Peg tube c/d/i Ext: Warm, well-perfused. 2+ DP/PT bilaterally CBCD WBC 7.3 K/mm3 (4.0-10.0) 07/03/16 08:35 RBC 3.95 M/mm3 (4.00-5.60) L 07/03/16 08:35 Hgb 11.1 GM/dL (11.7-16.9) L 07/03/16 08:35 Hct 33.5 % (35.4-49) L 07/03/16 08:35 MCV 85.0 fl (80-96) 07/03/16 08:35 MCHC 33.1 g/dl (32.0-35.9) 07/03/16 08:35 RDW 16.4 % (11.9-15.9) H 07/03/16 08:35 Plt Count 188 K/MM3 (134-434) D 07/03/16 08:35 MPV 8.9 fl (7.5-11.1) 07/03/16 08:35 CMP Sodium 142 mmol/L (136-145) 07/03/16 08:35 Potassium 3.8 mmol/L (3.5-5.1) 07/03/16 08:35 Chloride 104 mmol/L (98-107) 07/03/16 08:35 Carbon Dioxide 28 mmol/L (21-32) 07/03/16 08:35 Anion Gap 10 (8-16) 07/03/16 08:35 BUN 23 mg/dL (7-18) H 07/03/16 08:35 Creatinine 0.9 mg/dL (0.7-1.3) 07/03/16 08:35 Creat Clearance w eGFR > 60 (>60) 07/03/16 08:35 Random Glucose 112 mg/dL (74-106) H 07/03/16 08:35 Calcium 9.7 mg/dL (8.5-10.1) 07/03/16 08:35 Total Bilirubin 0.3 mg/dL (0.2-1.0) 07/03/16 08:35 AST 25 U/L (15-37) D 07/03/16 08:35 ALT 59 U/L (12-78) 07/03/16 08:35 Alkaline Phosphatase 143 U/L (45-117) H 07/03/16 08:35 Total Protein 8.0 g/dl (6.4-8.2) 07/03/16 08:35 Albumin 3.5 g/dl (3.4-5.0) 07/03/16 08:35 CARDIAC ENZYMES Creatine Kinase 62 IU/L (38-174) 06/28/15 09:35 Troponin I 0.07 ng/ml (0.03-0.5) D 07/09/15 05:00 Assessment: 75 year old male with PMHx of HTN, IDDM, inguinal hernia who presented to the ED with diverticular bleed s/p Righ hemicolectomy with 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 Plan: 1. Anoxic brain injury s/p brainstem CVAs - Mental status unchanged 2. Respiratory failure secondary to anoxic brain injury - Cont trach collar - Duonebs PRN 3. HTN - Continue lisinopril, metoprolol, amlodipine 4. Multiple pressure ulcers - Turn and position q2h 5. IDDM - Continue Levemir at 14u sq qhs - ISS BGM ACHS 6. F/E/N: - Tube feeds 7. Prophylaxis: - SCDs bilaterally - No chemical anticoagulation 2/2 spontaneous gluteal bleed and severe GI bleed - Functional quadriplegia CODE STATUS: DNR
[2016-07-06] MEDS: MULTIVITAMINS THERAPEUTIC GT SCH (15:02)
[2016-07-06] MEDS: INSULIN DETEMIR 100 UNITS/ML MDV SQ SCH (23:13)
[2016-07-07] MEDS: INSULIN SLIDING SCALE (NOVOLOG) 1 VIAL SQ SCH ×2 (06:58→17:16)
[2016-07-07] MEDS: LISINOPRIL 20 MG TABLET (FP) GT SCH (10:20)
[2016-07-07] MEDS: METOPROLOL TARTRATE 50 MG TABLET (FP) GT SCH ×2 (10:20→22:14)
[2016-07-07] MEDS: amLODIPine BESYLATE 10 MG TABLET (FP) GT SCH (10:21)
[2016-07-07] MEDS: AMINO ACIDS/PROTEIN HYDROLYS SUGAR-FREE 30 ML PACKET PO SCH (10:21)
[2016-07-07] MEDS: PANTOPRAZOLE SOD 40 MG SUSPENSION PACKET GT SCH (10:21)
[2016-07-07] MEDS: LACTOBACILLUS ACIDOPHILUS 1 EACH TAB (FP) PO SCH (10:21)
[2016-07-07] MEDS: MULTIVITAMINS THERAPEUTIC GT SCH (10:22)
[2016-07-07] MEDS: SCOPOLAMINE HYDROBROMIDE 1 PATCH PATCH.TD72 TD SCH (14:59)
--- NOTE | 2016-07-07 17:03 | PN ---
Physical Exam: SUBJECTIVE: Patient seen and examined. He appears calm, he does not follow commands. Low grade fever today. OBJECTIVE: Vital Signs Period Temp Pulse Resp BP Sys/Santiago Pulse Ox Last 24 Hr 98.5 F-100.1 F 72-83 18-20 124-145/66-82 97-100 PE: Neuro: non verbal, awake Pulm: CTA anteriorly, + TC, + secretions, coughs CV: s1 s2 rrr no mrg Abd: Soft, non-distended. Normoactive bowel sounds. Peg tube c/d/i Ext: Warm, no edema Laboratory Results - last 24 hr 07/06/16 07/07/16 18:04 06:56 POC Glucometer 176 123 Active Medications Generic Name Dose Route Start Last Admin Trade Name Freq PRN Reason Stop Dose Admin Acetaminophen 650 mg 05/26/16 14:23 06/01/16 01:47 Tylenol Oral Solution - GT 650 mg Q4H PRN Administration FEVER Albuterol/Ipratropium 1 amp 07/02/16 12:54 07/03/16 06:36 Duoneb - NEB 1 amp Q4H PRN Administration SHORTNESS OF BREATH Amino Acids 30 ml 06/28/16 10:00 07/07/16 10:21 Prostat Sugar-Free Packet - PO 30 ml DAILY KWAKU Administration Amlodipine Besylate 10 mg 12/30/15 10:00 07/07/16 10:21 Norvasc - GT 10 mg DAILY KWAKU Administration Guaifenesin 10 ml 12/29/15 10:43 05/16/16 10:16 Robitussin Dm - PO 10 ml Q6H PRN Administration COUGH Insulin Aspart 1 vial 01/28/16 16:30 07/07/16 06:58 Novolog Vial Sliding Scale - SQ Not Given BIDI [facility] Protocol Insulin Detemir 14 units 05/05/16 22:00 07/06/16 23:13 Levemir Vial SQ 14 units HS KWAKU Administration Lactobacillus Acidophilus 1 tab 12/30/15 10:00 07/07/16 10:21 Bacid - PO 1 tab DAILY KWAKU Administration Lisinopril 40 mg 12/30/15 10:00 07/07/16 10:20 Prinivil - GT 40 mg DAILY KWAKU Administration Metoprolol Tartrate 150 mg 12/29/15 22:00 09/09/16 10:20 Lopressor - GT 150 mg BID KWAKU Administration Metoprolol Tartrate 5 mg 12/29/15 10:43 Lopressor Injection - IVPB Q6H PRN HYPERTENSION Multivitamins 5 ml 12/30/15 10:00 07/07/16 10:22 Thera-Plus - GT 5 ml DAILY KWAKU Administration Pantoprazole Sodium 40 mg 12/30/15 10:00 07/07/16 10:21 Protonix Packets For Oral Suspension - GT 40 mg DAILY KWAKU Administration Scopolamine HBr 1 patch 05/20/16 15:45 07/07/16 14:59 Transderm-Scop - TD 1 patch Q72H KWAKU Administration Assessment: 75 year old male with PMHx of HTN, IDDM, inguinal hernia who presented to the ED with diverticular bleed s/p Righ hemicolectomy with 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 Plan: 1. Anoxic brain injury s/p brainstem CVAs - Mental status unchanged 2. Respiratory failure secondary to anoxic brain injury - Cont trach collar - Duonebs PRN 3. HTN - Continue lisinopril, metoprolol, amlodipine 4. Multiple pressure ulcers - Turn and position q2h 5. IDDM - Continue Levemir at 14u sq qhs - ISS BGM ACHS 6. F/E/N: - Tube feeds 7. Prophylaxis: - SCDs bilaterally - No chemical anticoagulation 2/2 spontaneous gluteal bleed and severe GI bleed - Functional quadriplegia CODE STATUS: DNR Visit Type - Emergency Visit Emergency Visit: Yes ED Registration Date: 06/27/15 Care time: The patient presented to the Emergency Department on the above date and was hospitalized for further evaluation of their emergent condition. - New Patient This patient is new to me today: No - Critical Care Critical Care patient: No - Functional quadriplegia CODE STATUS: DNR
[2016-07-07] MEDS: INSULIN DETEMIR 100 UNITS/ML MDV SQ SCH (22:13)
[2016-07-08] MEDS: INSULIN SLIDING SCALE (NOVOLOG) 1 VIAL SQ SCH ×2 (06:36→17:05)
[2016-07-08] MEDS: LACTOBACILLUS ACIDOPHILUS 1 EACH TAB (FP) PO SCH (10:48)
[2016-07-08] MEDS: METOPROLOL TARTRATE 50 MG TABLET (FP) GT SCH ×2 (10:49→21:43)
[2016-07-08] MEDS: amLODIPine BESYLATE 10 MG TABLET (FP) GT SCH (10:49)
[2016-07-08] MEDS: PANTOPRAZOLE SOD 40 MG SUSPENSION PACKET GT SCH (10:49)
[2016-07-08] MEDS: MULTIVITAMINS THERAPEUTIC GT SCH (10:49)
[2016-07-08] MEDS: LISINOPRIL 20 MG TABLET (FP) GT SCH (10:49)
[2016-07-08] MEDS: AMINO ACIDS/PROTEIN HYDROLYS SUGAR-FREE 30 ML PACKET PO SCH (10:49)
--- NOTE | 2016-07-08 15:52 | PN ---
Physical Exam: Subjective: Patient seen and examined. Pt is sleeping, appears to open eyes with voice, however dose not follow commands. Objective: Vital Signs Period Temp Pulse Resp BP Sys/Santiago Pulse Ox Last 24 Hr 98.4 F-99.8 F 62-103 19-22 132-142/68-80 94-98 PE: Neuro: non verbal, awake Pulm: CTA anteriorly, + TC CV: s1 s2 rrr no mrg Abd: Soft, non-distended. Normoactive bowel sounds. Peg tube c/d/i Ext: Warm, no edema Laboratory Results - last 24 hr 07/07/16 07/08/16 17:15 06:01 POC Glucometer 136 102 Active Medications Generic Name Dose Route Start Last Admin Trade Name Freq PRN Reason Stop Dose Admin Acetaminophen 650 mg 05/26/16 14:23 06/01/16 01:47 Tylenol Oral Solution - GT 650 mg Q4H PRN Administration FEVER Albuterol/Ipratropium 1 amp 07/02/16 12:54 07/03/16 06:36 Duoneb - NEB 1 amp Q4H PRN Administration SHORTNESS OF BREATH Amino Acids 30 ml 06/28/16 10:00 07/08/16 10:49 Prostat Sugar-Free Packet - PO 30 ml DAILY KWAKU Administration Amlodipine Besylate 10 mg 12/30/15 10:00 07/08/16 10:49 Norvasc - GT 10 mg DAILY KWAKU Administration Guaifenesin 10 ml 12/29/15 10:43 05/16/16 10:16 Robitussin Dm - PO 10 ml Q6H PRN Administration COUGH Insulin Aspart 1 vial 01/28/16 16:30 07/08/16 06:36 Novolog Vial Sliding Scale - SQ Not Given BIDI [facility] Protocol Insulin Detemir 14 units 05/05/16 22:00 07/07/16 22:13 Levemir Vial SQ 14 units HS KWAKU Administration Lactobacillus Acidophilus 1 tab 12/30/15 10:00 07/08/16 10:48 Bacid - PO 1 tab DAILY KWAKU Administration Lisinopril 40 mg 12/30/15 10:00 07/08/16 10:49 Prinivil - GT 40 mg DAILY KWAKU Administration Metoprolol Tartrate 150 mg 12/29/15 22:00 07/08/16 10:49 Lopressor - GT 150 mg BID KWAKU Administration Metoprolol Tartrate 5 mg 12/29/15 10:43 Lopressor Injection - IVPB Q6H PRN HYPERTENSION Multivitamins 5 ml 12/30/15 10:00 07/08/16 10:49 Thera-Plus - GT 5 ml DAILY KWAKU Administration Pantoprazole Sodium 40 mg 12/30/15 10:00 07/08/16 10:49 Protonix Packets For Oral Suspension - GT 40 mg DAILY KWAKU Administration Scopolamine HBr 1 patch 05/20/16 15:45 07/07/16 14:59 Transderm-Scop - TD 1 patch Q72H KWAKU Administration Assessment: 75 year old male with PMHx of HTN, IDDM, inguinal hernia who presented to the ED with diverticular bleed s/p Righ hemicolectomy with 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 Plan: 1. Anoxic brain injury s/p brainstem CVAs - Mental status unchanged, non purposeful movement 2. Respiratory failure secondary to anoxic brain injury - Cont trach collar - Duonebs PRN 3. HTN - Continue lisinopril, metoprolol, amlodipine 4. Multiple pressure ulcers - Turn and position q2h 5. IDDM - Continue Levemir at 14u sq qhs - ISS BGM ACHS 6. F/E/N: - Tube feeds 7. Prophylaxis: - SCDs bilaterally - No chemical anticoagulation 2/2 spontaneous gluteal bleed and severe GI bleed - Functional quadriplegia CODE STATUS: DNR Visit Type - Emergency Visit Emergency Visit: Yes ED Registration Date: 06/27/15 Care time: The patient presented to the Emergency Department on the above date and was hospitalized for further evaluation of their emergent condition. - New Patient This patient is new to me today: No - Critical Care Critical Care patient: No
[2016-07-08] MEDS: INSULIN DETEMIR 100 UNITS/ML MDV SQ SCH (21:43)
[2016-07-09] MEDS: INSULIN SLIDING SCALE (NOVOLOG) 1 VIAL SQ SCH ×2 (06:30→17:09)
[2016-07-09] MEDS: amLODIPine BESYLATE 10 MG TABLET (FP) GT SCH (10:41)
[2016-07-09] MEDS: AMINO ACIDS/PROTEIN HYDROLYS SUGAR-FREE 30 ML PACKET PO SCH (10:41)
[2016-07-09] MEDS: MULTIVITAMINS THERAPEUTIC GT SCH (10:41)
[2016-07-09] MEDS: LACTOBACILLUS ACIDOPHILUS 1 EACH TAB (FP) PO SCH (10:41)
[2016-07-09] MEDS: METOPROLOL TARTRATE 50 MG TABLET (FP) GT SCH ×2 (10:41→22:41)
[2016-07-09] MEDS: LISINOPRIL 20 MG TABLET (FP) GT SCH (10:41)
[2016-07-09] MEDS: PANTOPRAZOLE SOD 40 MG SUSPENSION PACKET GT SCH (10:41)
--- NOTE | 2016-07-09 19:22 | PN ---
Physical Exam: SUBJECTIVE: Patient seen and examined OBJECTIVE: Vital Signs Period Temp Pulse Resp BP Sys/Santiago Pulse Ox Last 24 Hr 98.1 F-98.8 F 65-91 22-22 138-146/76-90 95 GENERAL/NEURO: Eyes open. Non-verbal. Does not follow commands. Non-purposeful movement. HEAD: Normal with no signs of trauma. Trach. EYES: PERRL, extraocular movements intact, sclera anicteric, conjunctiva clear. No ptosis. ENT: Ears normal, nares patent, oropharynx clear without exudates, moist mucous membranes. LUNGS: CTA; on trach collar; no wheezing, no rhonchi, no accessory muscle use. HEART: Regular rate and rhythm, S1, S2 without murmur, rub or gallop. ABDOMEN: Soft, nontender, nondistended, normoactive bowel sounds, no guarding, no rebound, no hepatosplenomegaly, no masses. PEG tube. EXTREMITIES: 2+ pulses, warm, well-perfused, no edema. CBCD WBC 7.3 K/mm3 (4.0-10.0) 07/03/16 08:35 RBC 3.95 M/mm3 (4.00-5.60) L 07/03/16 08:35 Hgb 11.1 GM/dL (11.7-16.9) L 07/03/16 08:35 Hct 33.5 % (35.4-49) L 07/03/16 08:35 MCV 85.0 fl (80-96) 07/03/16 08:35 MCHC 33.1 g/dl (32.0-35.9) 07/03/16 08:35 RDW 16.4 % (11.9-15.9) H 07/03/16 08:35 Plt Count 188 K/MM3 (134-434) D 07/03/16 08:35 MPV 8.9 fl (7.5-11.1) 07/03/16 08:35 CMP Sodium 142 mmol/L (136-145) 07/03/16 08:35 Potassium 3.8 mmol/L (3.5-5.1) 07/03/16 08:35 Chloride 104 mmol/L (98-107) 07/03/16 08:35 Carbon Dioxide 28 mmol/L (21-32) 07/03/16 08:35 Anion Gap 10 (8-16) 07/03/16 08:35 BUN 23 mg/dL (7-18) H 07/03/16 08:35 Creatinine 0.9 mg/dL (0.7-1.3) 07/03/16 08:35 Creat Clearance w eGFR > 60 (>60) 07/03/16 08:35 Calcium 9.7 mg/dL (8.5-10.1) 07/03/16 08:35 Total Bilirubin 0.3 mg/dL (0.2-1.0) 07/03/16 08:35 AST 25 U/L (15-37) D 07/03/16 08:35 ALT 59 U/L (12-78) 07/03/16 08:35 Alkaline Phosphatase 143 U/L (45-117) H 07/03/16 08:35 Total Protein 8.0 g/dl (6.4-8.2) 07/03/16 08:35 Albumin 3.5 g/dl (3.4-5.0) 07/03/16 08:35 Active Medications Generic Name Dose Route Start Last Admin Trade Name Freq PRN Reason Stop Dose Admin Acetaminophen 650 mg 05/26/16 14:23 06/01/16 01:47 Tylenol Oral Solution - GT 650 mg Q4H PRN Administration FEVER Albuterol/Ipratropium 1 amp 07/02/16 12:54 07/03/16 06:36 Duoneb - NEB 1 amp Q4H PRN Administration SHORTNESS OF BREATH Amino Acids 30 ml 06/28/16 10:00 07/09/16 10:41 Prostat Sugar-Free Packet - PO 30 ml DAILY KWAKU Administration Amlodipine Besylate 10 mg 12/30/15 10:00 07/09/16 10:41 Norvasc - GT 10 mg DAILY KWAKU Administration Guaifenesin 10 ml 12/29/15 10:43 05/16/16 10:16 Robitussin Dm - PO 10 ml Q6H PRN Administration COUGH Insulin Aspart 1 vial 01/28/16 16:30 07/09/16 17:09 Novolog Vial Sliding Scale - SQ Not Given BIDI [facility] Protocol Insulin Detemir 14 units 05/05/16 22:00 07/08/16 21:43 Levemir Vial SQ 14 units HS KWAKU Administration Lactobacillus Acidophilus 1 tab 12/30/15 10:00 07/09/16 10:41 Bacid - PO 1 tab DAILY KWAKU Administration Lisinopril 40 mg 12/30/15 10:00 07/09/16 10:41 Prinivil - GT 40 mg DAILY KWAKU Administration Metoprolol Tartrate 150 mg 12/29/15 22:00 07/09/16 10:41 Lopressor - GT 150 mg BID KWAKU Administration Metoprolol Tartrate 5 mg 12/29/15 10:43 Lopressor Injection - IVPB Q6H PRN HYPERTENSION Multivitamins 5 ml 12/30/15 10:00 07/09/16 10:41 Thera-Plus - GT 5 ml DAILY KWAKU Administration Pantoprazole Sodium 40 mg 12/30/15 10:00 07/09/16 10:41 Protonix Packets For Oral Suspension - GT 40 mg DAILY KWKAU Administration Scopolamine HBr 1 patch 05/20/16 15:45 07/07/16 14:59 Transderm-Scop - TD 1 patch Q72H KWAKU Administration ASSESSMENT/PLAN: 75 year old male with PMHx of HTN, IDDM, inguinal hernia who presented to the ED with diverticular bleed s/p right hemicolectomy. 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 Hydronephrosis, chronic --renal function stable Right inguinal hernia --incidental finding on CT --no surgical intervention at this time Anoxic brain injury s/p brainstem CVAs --mental status unchanged Respiratory failure secondary to anoxic brain injury --cont trach collar --Duonebs PRN Functional quadriplegia secondary to anoxic brain injury --inability to feed, turn, or toilet independently; requires complete care HTN --BP well-controlled --continue lisinopril, metoprolol, amlodipine Multiple pressure ulcers --Allevyn dressing IDDM --Levemir --Novolog sliding scale coverage --fingersticks F/E/N Fluids/Nutrition: Tube feed Glucerna 1.5 @ 60mL/hr + 50mL/hr free water via pump; Prostat daily Electrolytes: replete as indicated DVT prophylaxis: SCDs, no chemical anticoagulation Dispo: continues to require inpatient care. DNR/DNI. Visit Type - Emergency Visit Emergency Visit: Yes ED Registration Date: 06/27/15 Care time: The patient presented to the Emergency Department on the above date and was hospitalized for further evaluation of their emergent condition. - New Patient This patient is new to me today: No - Critical Care Critical Care patient: No
[2016-07-09] MEDS: INSULIN DETEMIR 100 UNITS/ML MDV SQ SCH (22:45)
[2016-07-10] MEDS: ALBUTEROL SO4 2.5/IPRATROPIUM 0.5 INH SOL 3 ML VIAL.NEB. NEB PRN (01:44)
[2016-07-10] MEDS: METOPROLOL TARTRATE 50 MG TABLET (FP) GT SCH ×2 (09:34→21:27)
[2016-07-10] MEDS: LACTOBACILLUS ACIDOPHILUS 1 EACH TAB (FP) PO SCH (09:34)
[2016-07-10] MEDS: LISINOPRIL 20 MG TABLET (FP) GT SCH (09:34)
[2016-07-10] MEDS: PANTOPRAZOLE SOD 40 MG SUSPENSION PACKET GT SCH (09:35)
[2016-07-10] MEDS: amLODIPine BESYLATE 10 MG TABLET (FP) GT SCH (09:35)
[2016-07-10] MEDS: MULTIVITAMINS THERAPEUTIC GT SCH (09:35)
--- NOTE | 2016-07-10 11:34 | PN ---
Physical Exam: Subjection: Patient seen and examined. No events overnight, no fever. Objective: Vital Signs Period Temp Pulse Resp BP Sys/Santiago Pulse Ox Last 24 Hr 98.1 F-98.7 F 70-91 18-22 146-159/81-89 98 PE: Neuro: non verbal, awake Pulm: CTA anteriorly, + TC CV: s1 s2 rrr no mrg Abd: Soft, non-distended. Normoactive bowel sounds. Peg tube c/d/i Ext: Warm, no edema Laboratory Results - last 24 hr 07/09/16 07/10/16 16:43 07:01 POC Glucometer 140 113 Active Medications Generic Name Dose Route Start Last Admin Trade Name Freq PRN Reason Stop Dose Admin Acetaminophen 650 mg 05/26/16 14:23 06/01/16 01:47 Tylenol Oral Solution - GT 650 mg Q4H PRN Administration FEVER Albuterol/Ipratropium 1 amp 07/02/16 12:54 07/10/16 01:44 Duoneb - NEB 1 amp Q4H PRN Administration SHORTNESS OF BREATH Amino Acids 30 ml 06/28/16 10:00 07/09/16 10:41 Prostat Sugar-Free Packet - PO 30 ml DAILY KWAKU Administration Amlodipine Besylate 10 mg 12/30/15 10:00 07/10/16 09:35 Norvasc - GT 10 mg DAILY KWAKU Administration Guaifenesin 10 ml 12/29/15 10:43 05/16/16 10:16 Robitussin Dm - PO 10 ml Q6H PRN Administration COUGH Insulin Aspart 1 vial 01/28/16 16:30 07/09/16 17:09 Novolog Vial Sliding Scale - SQ Not Given BIDI [facility] Protocol Insulin Detemir 14 units 05/05/16 22:00 07/09/16 22:45 Levemir Vial SQ 14 units HS KWAKU Administration Lactobacillus Acidophilus 1 tab 12/30/15 10:00 07/10/16 09:34 Bacid - PO 1 tab DAILY KWAKU Administration Lisinopril 40 mg 12/30/15 10:00 07/10/16 09:34 Prinivil - GT 40 mg DAILY KWAKU Administration Metoprolol Tartrate 150 mg 12/29/15 22:00 07/10/16 09:34 Lopressor - GT 150 mg BID KWAKU Administration Metoprolol Tartrate 5 mg 12/29/15 10:43 Lopressor Injection - IVPB Q6H PRN HYPERTENSION Multivitamins 5 ml 12/30/15 10:00 07/10/16 09:35 Thera-Plus - GT 5 ml DAILY KWAKU Administration Pantoprazole Sodium 40 mg 12/30/15 10:00 07/10/16 09:35 Protonix Packets For Oral Suspension - GT 40 mg DAILY KWAKU Administration Scopolamine HBr 1 patch 05/20/16 15:45 07/07/16 14:59 Transderm-Scop - TD 1 patch Q72H KWAKU Administration Assessment: 75 year old male with PMHx of HTN, IDDM, inguinal hernia who presented to the ED with diverticular bleed s/p Righ hemicolectomy with 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 Plan: 1. Anoxic brain injury s/p brainstem CVAs -mental status unchanged 2. Respiratory failure secondary to anoxic brain injury -cont trach collar -Duonebs PRN 3. HTN -BP well-controlled -continue lisinopril, metoprolol, amlodipine 4. Hydronephrosis, chronic -renal function stable 5. Right inguinal hernia -incidental finding on CT -no surgical intervention at this time 6. Multiple pressure ulcers -Allevyn dressing 7. IDDM -Levemir -Novolog sliding scale coverage -fingersticks 8. Nutrition: - Fluids/Nutrition: Tube feed Glucerna 1.5 @ 60mL/hr + 50mL/hr free water via pump; Prostat daily 9. DVT prophylaxis: SCDs, no chemical anticoagulation Visit Type - Emergency Visit Emergency Visit: Yes ED Registration Date: 06/27/15 Care time: The patient presented to the Emergency Department on the above date and was hospitalized for further evaluation of their emergent condition. - New Patient This patient is new to me today: No - Critical Care Critical Care patient: No F/E/N Fluids/Nutrition: Tube feed Glucerna 1.5 @ 60mL/hr + 50mL/hr free water via pump; Prostat daily Electrolytes: replete as indicated DVT prophylaxis: SCDs, no chemical anticoagulation Dispo: continues to require inpatient care. DNR/DNI.
[2016-07-10] MEDS: AMINO ACIDS/PROTEIN HYDROLYS SUGAR-FREE 30 ML PACKET PO SCH (12:50)
[2016-07-10] MEDS: INSULIN SLIDING SCALE (NOVOLOG) 1 VIAL SQ SCH (16:40)
[2016-07-10] MEDS: SCOPOLAMINE HYDROBROMIDE 1 PATCH PATCH.TD72 TD SCH (16:41)
[2016-07-10] MEDS: INSULIN DETEMIR 100 UNITS/ML MDV SQ SCH (21:27)
[2016-07-11] MEDS: INSULIN SLIDING SCALE (NOVOLOG) 1 VIAL SQ SCH ×3 (06:45→17:34)
[2016-07-11 08:15] LABS: BASOPHIL 0.6 % (0-2.0); MCH 28.5 pg (25.7-33.7); MCHC 33.2 g/dl (32.0-35.9); MEAN CELL VOLUME 85.7 fl (80-96); MEAN PLT VOLUME 9.6 fl (7.5-11.1); NEUTROPHILS 64.1 % (42.8-82.8); PLATELET COUNT 174 K/MM3 (134-434); WHITE BLOOD COUNT 7.1 K/mm3 (4.0-10.0)
[2016-07-11 08:43] LABS: ALBUMIN 3.4 g/dl (3.4-5.0); ANION GAP 4 (8-16); CALCIUM 9.4 mg/dL (8.5-10.1); CO2 33 mmol/L (21-32); CREATININE 0.8 mg/dL (0.7-1.3); GLUCOSE,RANDOM 105 mg/dL (74-106); SGOT/AST 20 U/L (15-37); SGPT/ALT 41 U/L (12-78)
[2016-07-11 08:45] LABS: ALK PHOS 137 U/L (45-117); BILIRUBIN,TOTAL 0.3 mg/dL (0.2-1.0); TOT PROT 7.9 g/dl (6.4-8.2)
[2016-07-11] MEDS: METOPROLOL TARTRATE 50 MG TABLET (FP) GT SCH ×2 (10:15→21:29)
[2016-07-11] MEDS: LISINOPRIL 20 MG TABLET (FP) GT SCH (10:15)
[2016-07-11] MEDS: MULTIVITAMINS THERAPEUTIC GT SCH (10:16)
[2016-07-11] MEDS: amLODIPine BESYLATE 10 MG TABLET (FP) GT SCH (10:16)
[2016-07-11] MEDS: PANTOPRAZOLE SOD 40 MG SUSPENSION PACKET GT SCH (10:16)
[2016-07-11] MEDS: LACTOBACILLUS ACIDOPHILUS 1 EACH TAB (FP) PO SCH (10:16)
[2016-07-11] MEDS: AMINO ACIDS/PROTEIN HYDROLYS SUGAR-FREE 30 ML PACKET PO SCH (10:16)
--- NOTE | 2016-07-11 14:03 | PN ---
Physical Exam: SUBJECTIVE: Patient seen and examined. No changes, no new events. Labs stable OBJECTIVE: Vital Signs Period Temp Pulse Resp BP Sys/Santiago Pulse Ox Last 24 Hr 98.5 F-98.9 F 60-89 20-24 127-137/60-88 97-97 PE: Neuro: non verbal, awake Pulm: CTA anteriorly, + TC CV: s1 s2 rrr no mrg Abd: Soft, non-distended. Normoactive bowel sounds. Peg tube c/d/i Ext: Warm, no edema Laboratory Results - last 24 hr 07/10/16 07/11/16 07/11/16 16:37 06:00 06:10 WBC RBC Hgb Hct MCV MCHC RDW Plt Count MPV Neutrophils % Lymphocytes % Monocytes % Eosinophils % Basophils % Sodium 141 Potassium 3.8 Chloride 104 Carbon Dioxide 33 H Anion Gap 4 L BUN 23 H Creatinine 0.8 Creat Clearance w eGFR > 60 POC Glucometer 158 100 Random Glucose 105 Calcium 9.4 Total Bilirubin 0.3 AST 20 ALT 41 D Alkaline Phosphatase 137 H Total Protein 7.9 Albumin 3.4 07/11/16 07:19 WBC 7.1 RBC 3.82 L Hgb 10.9 L Hct 32.8 L MCV 85.7 MCHC 33.2 RDW 16.0 H Plt Count 174 MPV 9.6 Neutrophils % 64.1 Lymphocytes % 25.7 Monocytes % 5.6 Eosinophils % 4.0 Basophils % 0.6 Sodium Potassium Chloride Carbon Dioxide Anion Gap BUN Creatinine Creat Clearance w eGFR POC Glucometer Random Glucose Calcium Total Bilirubin AST ALT Alkaline Phosphatase Total Protein Albumin Active Medications Generic Name Dose Route Start Last Admin Trade Name Ginette PRN Reason Stop Dose Admin Acetaminophen 650 mg 05/26/16 14:23 06/01/16 01:47 Tylenol Oral Solution - GT 650 mg Q4H PRN Administration FEVER Albuterol/Ipratropium 1 amp 07/02/16 12:54 07/10/16 01:44 Duoneb - NEB 1 amp Q4H PRN Administration SHORTNESS OF BREATH Amino Acids 30 ml 06/28/16 10:00 07/11/16 10:16 Prostat Sugar-Free Packet - PO 30 ml DAILY KWAKU Administration Amlodipine Besylate 10 mg 12/30/15 10:00 07/11/16 10:16 Norvasc - GT 10 mg DAILY KWAKU Administration Guaifenesin 10 ml 12/29/15 10:43 05/16/16 10:16 Robitussin Dm - PO 10 ml Q6H PRN Administration COUGH Insulin Aspart 1 vial 01/28/16 16:30 07/11/16 10:16 Novolog Vial Sliding Scale - SQ Not Given BIDI [facility] Protocol Insulin Detemir 14 units 05/05/16 22:00 07/10/16 21:27 Levemir Vial SQ 14 units HS KWAKU Administration Lactobacillus Acidophilus 1 tab 12/30/15 10:00 07/11/16 10:16 Bacid - PO 1 tab DAILY KWAKU Administration Lisinopril 40 mg 12/30/15 10:00 07/11/16 10:15 Prinivil - GT 40 mg DAILY KWAKU Administration Metoprolol Tartrate 150 mg 12/29/15 22:00 07/11/16 10:15 Lopressor - GT 150 mg BID KWAKU Administration Metoprolol Tartrate 5 mg 12/29/15 10:43 Lopressor Injection - IVPB Q6H PRN HYPERTENSION Multivitamins 5 ml 12/30/15 10:00 07/11/16 10:16 Thera-Plus - GT 5 ml DAILY KWAKU Administration Pantoprazole Sodium 40 mg 12/30/15 10:00 07/11/16 10:16 Protonix Packets For Oral Suspension - GT 40 mg DAILY KWAKU Administration Scopolamine HBr 1 patch 05/20/16 15:45 07/10/16 16:41 Transderm-Scop - TD 1 patch Q72H KWAKU Administration Assessment: 75 year old male with PMHx of HTN, IDDM, inguinal hernia who presented to the ED with diverticular bleed s/p Righ hemicolectomy with 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 Plan: 1. Anoxic brain injury s/p brainstem CVAs -mental status unchanged 2. Respiratory failure secondary to anoxic brain injury -cont trach collar -Duonebs PRN 3. HTN -BP well-controlled -continue lisinopril, metoprolol, amlodipine 4. Hydronephrosis, chronic -renal function stable 5. Right inguinal hernia -incidental finding on CT -no surgical intervention at this time 6. Multiple pressure ulcers -Allevyn dressing 7. IDDM -Levemir -Novolog sliding scale coverage -fingersticks 8. Nutrition: - Fluids/Nutrition: Tube feed Glucerna 1.5 @ 60mL/hr + 50mL/hr free water via pump; Prostat daily 9. DVT prophylaxis: SCDs, no chemical anticoagulation Visit Type - Emergency Visit Emergency Visit: Yes ED Registration Date: 06/27/15 Care time: The patient presented to the Emergency Department on the above date and was hospitalized for further evaluation of their emergent condition. - New Patient This patient is new to me today: No - Critical Care Critical Care patient: No - Fluids/Nutrition: Tube feed Glucerna 1.5 @ 60mL/hr + 50mL/hr free water via pump; Prostat daily 9. DVT prophylaxis: SCDs, no chemical anticoagulation
[2016-07-11] MEDS: INSULIN DETEMIR 100 UNITS/ML MDV SQ SCH (21:27)
[2016-07-12] MEDS: INSULIN SLIDING SCALE (NOVOLOG) 1 VIAL SQ SCH ×2 (06:19→17:15)
[2016-07-12] MEDS: amLODIPine BESYLATE 10 MG TABLET (FP) GT SCH (10:59)
[2016-07-12] MEDS: METOPROLOL TARTRATE 50 MG TABLET (FP) GT SCH ×2 (10:59→21:25)
[2016-07-12] MEDS: LISINOPRIL 20 MG TABLET (FP) GT SCH (10:59)
[2016-07-12] MEDS: LACTOBACILLUS ACIDOPHILUS 1 EACH TAB (FP) PO SCH (10:59)
[2016-07-12] MEDS: PANTOPRAZOLE SOD 40 MG SUSPENSION PACKET GT SCH (11:00)
[2016-07-12] MEDS: AMINO ACIDS/PROTEIN HYDROLYS SUGAR-FREE 30 ML PACKET PO SCH (11:00)
[2016-07-12] MEDS: MULTIVITAMINS THERAPEUTIC GT SCH (11:00)
[2016-07-12] MEDS: ALBUTEROL SO4 2.5/IPRATROPIUM 0.5 INH SOL 3 ML VIAL.NEB. NEB PRN (12:08)
--- NOTE | 2016-07-12 14:06 | WOUND ---
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 CVA Cardio/Vascular HTN Gastrointestinal GI Bleed Endocrine Diabetes Mellitus Past Surgical History Past Surgical History Colectomy Social History Smoking history Never smoked Have you smoked in the past 12 No months Hx Alcohol Use No Current Medications Generic Name Dose Route Start Last Admin Trade Name Freq PRN Reason Stop Dose Admin Acetaminophen 650 mg 05/26/16 14:23 06/01/16 01:47 Tylenol Oral Solution - GT 650 mg Q4H PRN Administration FEVER Albuterol/Ipratropium 1 amp 07/02/16 12:54 07/12/16 12:08 Duoneb - NEB 1 amp Q4H PRN Administration SHORTNESS OF BREATH Amino Acids 30 ml 06/28/16 10:00 07/12/16 11:00 Prostat Sugar-Free Packet - PO 30 ml DAILY KWAKU Administration Amlodipine Besylate 10 mg 12/30/15 10:00 07/12/16 10:59 Norvasc - GT 10 mg DAILY KWAKU Administration Guaifenesin 10 ml 12/29/15 10:43 05/16/16 10:16 Robitussin Dm - PO 10 ml Q6H PRN Administration COUGH Insulin Aspart 1 vial 01/28/16 16:30 07/12/16 06:19 Novolog Vial Sliding Scale - SQ Not Given BIDI [facility] Protocol Insulin Detemir 14 units 05/05/16 22:00 07/11/16 21:27 Levemir Vial SQ 14 units HS KWAKU Administration Lactobacillus Acidophilus 1 tab 12/30/15 10:00 07/12/16 10:59 Bacid - PO 1 tab DAILY KWAKU Administration Lisinopril 40 mg 12/30/15 10:00 07/12/16 10:59 Prinivil - GT 40 mg DAILY KWAKU Administration Metoprolol Tartrate 150 mg 12/29/15 22:00 07/12/16 10:59 Lopressor - GT 150 mg BID KWAKU Administration Metoprolol Tartrate 5 mg 12/29/15 10:43 Lopressor Injection - IVPB Q6H PRN HYPERTENSION Multivitamins 5 ml 12/30/15 10:00 07/12/16 11:00 Thera-Plus - GT 5 ml DAILY KWAKU Administration Pantoprazole Sodium 40 mg 12/30/15 10:00 07/12/16 11:00 Protonix Packets For Oral Suspension - GT 40 mg DAILY KWAKU Administration Scopolamine HBr 1 patch 05/20/16 15:45 07/10/16 16:41 Transderm-Scop - TD 1 patch Q72H KWAKU Administration Allergies Allergy/AdvReac Type Severity Reaction Status Date / Time No Known Allergies Allergy Verified 06/26/15 21:31 Physical Exam - Objective Last Vital Signs Temp Pulse Resp BP Pulse Ox 97.2 F L 74 16 139/87 100 07/12/16 10:00 07/12/16 10:00 07/12/16 10:00 07/12/16 10:00 07/12/16 09:00 Laboratory Last Values WBC 7.1 K/mm3 (4.0-10.0) 07/11/16 07:19 Corrected WBC (auto) Cancelled 06/26/15 21:50 RBC 3.82 M/mm3 (4.00-5.60) L 07/11/16 07:19 Hgb 10.9 GM/dL (11.7-16.9) L 07/11/16 07:19 Hct 32.8 % (35.4-49) L 07/11/16 07:19 MCV 85.7 fl (80-96) 07/11/16 07:19 MCHC 33.2 g/dl (32.0-35.9) 07/11/16 07:19 RDW 16.0 % (11.9-15.9) H 07/11/16 07:19 Plt Count 174 K/MM3 (134-434) 07/11/16 07:19 MPV 9.6 fl (7.5-11.1) 07/11/16 07:19 Add Manual Diff Cancelled 06/26/15 21:50 Neutrophils % 64.1 % (42.8-82.8) 07/11/16 07:19 Lymphocytes % 25.7 % (8-40) 07/11/16 07:19 Monocytes % 5.6 % (3.8-10.2) 07/11/16 07:19 Eosinophils % 4.0 % (0-4.5) 07/11/16 07:19 Basophils % 0.6 % (0-2.0) 07/11/16 07:19 Band Neutrophils 6.0 % (0-10) 06/28/15 09:35 Differential Comment Slide scanned 05/22/16 06:00 Reactive Lymphocytes 2 % (0-80) 04/30/16 17:00 Smudge Cells Cancelled 06/26/15 21:50 Platelet Estimate Adequate (NORMAL) 05/22/16 06:00 Platelet Comment No clumping noted 05/22/16 06:00 Platelet Comment No clotting detected 05/22/16 06:00 Normal RBC Morphology Cancelled 06/26/15 21:50 RBC Morphology Cancelled 06/26/15 21:50 ESR 100 mm/hr (0-20) H 02/03/16 06:25 INR 1.29 (0.80-1.00) H 12/26/15 08:45 PTT (Actin FS) 28.9 SECONDS (23.5-38.3) 09/03/15 19:20 Anticoagulation Therapy Y 07/11/15 07:07 Puncture Site Right radial 07/11/15 07:07 ABG pH 7.44 (7.35-7.45) 07/11/15 07:07 ABG pCO2 at Pt Temp 42.1 mmHg (35-45) 07/11/15 07:07 ABG pO2 at Pt Temp 113.0 mmHg (70-100) H D 07/11/15 07:07 ABG HCO3 27.8 meq/L (22-26) H 07/11/15 07:07 ABG O2 Sat (Measured) 99.1 % (90-98.9) H 07/11/15 07:07 ABG O2 Content 13.3 % vol (15-22) L 07/11/15 07:07 ABG Base Excess 3.8 meq/l (-2-2) H 07/11/15 07:07 Izaiah Test Positive 07/11/15 07:07 O2 Delivery Device Ventilator 07/11/15 07:07 Oxygen Flow Rate 30% 07/11/15 07:07 Vent Mode A/c 07/11/15 07:07 Vent Rate 10 07/11/15 07:07 Mechanical Rate Yes 07/11/15 07:07 PEEP 5.0 cmH2O 07/11/15 07:07 Pressure Support Vent 500 07/11/15 07:07 Sodium 141 mmol/L (136-145) 07/11/16 06:00 Potassium 3.8 mmol/L (3.5-5.1) 07/11/16 06:00 Chloride 104 mmol/L (98-107) 07/11/16 06:00 Carbon Dioxide 33 mmol/L (21-32) H 07/11/16 06:00 Anion Gap 4 (8-16) L 07/11/16 06:00 BUN 23 mg/dL (7-18) H 07/11/16 06:00 Creatinine 0.8 mg/dL (0.7-1.3) 07/11/16 06:00 Creat Clearance w eGFR > 60 (>60) 07/11/16 06:00 POC Glucometer 114 UNITS (()) 07/12/16 06:14 Random Glucose 105 mg/dL (74-106) 07/11/16 06:00 Lactic Acid 1.217 mmol/L (0.4-2.0) 12/25/15 12:45 Calcium 9.4 mg/dL (8.5-10.1) 07/11/16 06:00 Phosphorus 3.4 mg/dL (2.5-4.9) D 06/14/16 07:10 Magnesium 2.4 mg/dL (1.8-2.4) 07/03/16 08:35 Total Bilirubin 0.3 mg/dL (0.2-1.0) 07/11/16 06:00 Direct Bilirubin 0.1 mg/dL (0.0-0.2) 05/19/16 11:00 GGT 29 U/L (5-85) 04/18/16 05:45 AST 20 U/L (15-37) 07/11/16 06:00 ALT 41 U/L (12-78) D 07/11/16 06:00 Alkaline Phosphatase 137 U/L (45-117) H 07/11/16 06:00 Creatine Kinase 62 IU/L (38-174) 06/28/15 09:35 Creatine Kinase Index 0.7 % (0.0-5.0) 06/26/15 21:50 CK-MB (CK-2) 1.077 ng/ml (0.3-4.0) 06/26/15 21:50 CK-MB (CK-2) Rel Index Cancelled 06/26/15 21:50 Troponin I 0.07 ng/ml (0.03-0.5) D 07/09/15 05:00 C-Reactive Protein 2.1 MG/DL (0.00-0.3) H 09/03/15 07:30 Total Protein 7.9 g/dl (6.4-8.2) 07/11/16 06:00 Albumin 3.4 g/dl (3.4-5.0) 07/11/16 06:00 Triglycerides 143 mg/dL (35-160) D 09/02/15 06:30 Cholesterol 106 mg/dL (50-200) D 09/02/15 06:30 Total LDL Cholesterol 66 mg/dL 09/02/15 06:30 HDL Cholesterol 26 mg/dL (40-60) L D 09/02/15 06:30 Lipase 172 U/L (73-393) 05/19/16 11:00 Prolactin 19.8 ng/ml (4.0-15.2) H 07/02/15 05:20 Urine Color Yellow 06/14/16 15:15 Urine Appearance Slcloudy 06/14/16 15:15 Urine pH 7.0 (5.0-8.0) 06/14/16 15:15 Ur Specific [place] 1.016 (1.001-1.035) 06/14/16 15:15 Urine Protein Negative (NEGATIVE) 06/14/16 15:15 Urine Glucose (UA) Negative (NEGATIVE) 06/14/16 15:15 Urine Ketones Negative (NEGATIVE) 06/14/16 15:15 Urine Blood Negative (NEGATIVE) 06/14/16 15:15 Urine Nitrite Negative (NEGATIVE) 06/14/16 15:15 Urine Bilirubin Negative (NEGATIVE) 06/14/16 15:15 Urine Ictotest Negative (NEGATIVE) 01/29/16 14:44 Urine Urobilinogen Negative E.U./dl (0.2-1.0) 06/14/16 15:15 Ur Leukocyte Esterase Negative (NEGATIVE) 06/14/16 15:15 Urine RBC 90 /hpf (0-3) 05/25/16 21:27 Urine WBC 57 /hpf (3-5) 05/25/16 21:27 Ur Epithelial Cells Rare /hpf (FEW) 05/25/16 21:27 Calcium Oxalate Crystal Few /hpf (NONE SEEN) 01/29/16 14:44 Urine Bacteria Many /hpf (NONE SEEN) 05/25/16 21:27 Hyaline Casts 3 /lpf 01/29/16 14:44 Granular Casts 0 /lpf 01/29/16 14:44 Urine Mucus Many 05/25/16 21:27 Urine Yeast Few 01/29/16 14:44 Stool Occult Blood Negative (NEGATIVE) 07/02/15 12:00 Vancomycin Trough 20.819 ug/ml (5.0-10.0) H* 12/01/15 04:30 Hepatitis C Ab (EIA) <0.1 s/co ratio (0.0-0.9) 07/03/15 05:15 Blood Type O POSITIVE 09/03/15 18:48 Antibody Screen Negative 09/03/15 18:48 Crossmatch See Detail 09/03/15 19:20 Crossmatch IS Only See Detail 06/26/15 21:50 Spec Expiration Date 06/26/15 21:50 Microbiology 06/14/16 11:13 Blood - Peripheral Venous Blood Culture - Final NO GROWTH AFTER 5 DAYS INCUBATION 06/14/16 12:05 Ulcer Gram Stain - Final 06/14/16 12:05 Ulcer Wound Culture - Final Pseudomonas Aeruginosa Enterococcus Faecalis Mr S Aureus Providencia Stuartii 06/14/16 12:05 Sputum - Endotracheal Suction W/O Vent Gram Stain - Final 06/14/16 12:05 Sputum - Endotracheal Suction W/O Vent Sputum Culture - Final Pseudomonas Aeruginosa Morganella Morganii 06/15/16 13:50 Urine - Urine - Catheterized Urine Culture - Final NO GROWTH OBTAINED 06/14/16 15:15 Urine - Urine - Catheterized Urine Culture - Final Contaminated: Please Repeat 06/06/16 13:10 Urine - Urine - Catheterized Urine Culture - Final NO GROWTH OBTAINED 05/30/16 21:30 Stool Clostridium difficile Antigen (MACHO) - Final 05/30/16 21:30 Stool Clostridium difficile Toxin Assay - Final 05/25/16 18:45 Blood - Peripheral Venous Blood Culture - Final NO GROWTH AFTER 5 DAYS INCUBATION 05/25/16 18:45 Blood - Peripheral Venous Blood Culture - Final NO GROWTH AFTER 5 DAYS INCUBATION 05/25/16 18:45 Urine - Urine Schwartz Urine Culture - Final Providencia Stuartii Vr Ec Faecalis 05/05/16 11:00 Blood - Peripheral Venous Blood Culture - Final NO GROWTH AFTER 5 DAYS INCUBATION 05/05/16 11:00 Blood - Peripheral Venous Blood Culture - Final NO GROWTH AFTER 5 DAYS INCUBATION 05/03/16 13:08 Blood - Peripheral Venous Blood Culture - Final NO GROWTH AFTER 5 DAYS INCUBATION 05/03/16 13:08 Blood - Peripheral Venous Blood Culture - Final NO GROWTH AFTER 5 DAYS INCUBATION 05/05/16 19:00 Sputum - Endotracheal Suction W/O Vent Gram Stain - Final 05/05/16 19:00 Sputum - Endotracheal Suction W/O Vent Sputum Culture - Final Pseudomonas Aeruginosa 05/03/16 19:00 Stool Clostridium difficile Antigen (MACHO) - Final 05/03/16 19:00 Stool Clostridium difficile Toxin Assay - Final 05/03/16 15:00 Urine - Urine - Catheterized Urine Culture - Final NO GROWTH OBTAINED 04/17/16 16:55 Blood - Peripheral Venous Blood Culture - Final NO GROWTH AFTER 5 DAYS INCUBATION 04/17/16 16:55 Blood - Peripheral Venous Blood Culture - Final NO GROWTH AFTER 5 DAYS INCUBATION 04/18/16 21:30 Stool Clostridium difficile Antigen (MACHO) - Final 04/18/16 21:30 Stool Clostridium difficile Toxin Assay - Final 03/27/16 15:25 Stool Clostridium difficile Antigen (MACHO) - Final 03/27/16 15:25 Stool Clostridium difficile Toxin Assay - Final 03/02/16 02:00 Stool Clostridium difficile Antigen (MACHO) - Final 03/02/16 02:00 Stool Clostridium difficile Toxin Assay - Final 02/28/16 16:30 Urine - Urine - Catheterized Urine Culture - Final NO GROWTH OBTAINED 02/23/16 17:35 Blood - Peripheral Venous Blood Culture - Final NO GROWTH AFTER 5 DAYS INCUBATION 02/23/16 17:35 Blood - Peripheral Venous Blood Culture - Final NO GROWTH AFTER 5 DAYS INCUBATION 02/27/16 14:15 Urine - Urine Clean Catch Urine Culture - Final Contaminated: Please Repeat 02/23/16 19:45 Urine - Urine Schwartz Urine Culture - Final Contaminated: Please Repeat 01/29/16 11:05 Blood - Peripheral Venous Blood Culture - Final NO GROWTH AFTER 5 DAYS INCUBATION 01/29/16 11:05 Blood - Peripheral Venous Blood Culture - Final NO GROWTH AFTER 5 DAYS INCUBATION 01/30/16 08:00 Sputum - Endotracheal Suction W/O Vent Gram Stain - Final 01/30/16 08:00 Sputum - Endotracheal Suction W/O Vent Sputum Culture - Final Acinetobacter Baumannii/Haemol 01/29/16 22:12 Stool Clostridium difficile Antigen (MACHO) - Final 01/29/16 22:12 Stool Clostridium difficile Toxin Assay - Final 01/29/16 14:44 Urine - Urine - Catheterized Urine Culture - Final NO GROWTH OBTAINED 01/06/16 16:00 Stool Clostridium difficile Antigen (MACHO) - Final 01/06/16 16:00 Stool Clostridium difficile Toxin Assay - Final 12/24/15 04:00 Blood - Peripheral Venous Blood Culture - Final NO GROWTH AFTER 5 DAYS INCUBATION 12/24/15 03:30 Blood - Peripheral Venous Blood Culture - Final NO GROWTH AFTER 5 DAYS INCUBATION 12/24/15 05:45 Urine - Urine Clean Catch Urine Culture - Final 10/28/15 10:50 Blood - Peripheral Venous Blood Culture - Final NO GROWTH AFTER 5 DAYS INCUBATION 10/28/15 10:50 Blood - Peripheral Venous Blood Culture - Final NO GROWTH AFTER 5 DAYS INCUBATION 10/30/15 21:15 Stool Clostridium difficile (PCR) - Final 10/28/15 14:30 Urine - Urine - Catheterized Urine Culture - Final NO GROWTH OBTAINED 10/29/15 11:15 Stool Clostridium difficile Antigen (MACHO) - Final 10/29/15 11:15 Stool Clostridium difficile Toxin Assay - Final 09/08/15 16:30 Stool Clostridium difficile Antigen (MACHO) - Final 09/08/15 16:30 Stool Clostridium difficile Toxin Assay - Final 09/01/15 08:53 Blood - Peripheral Venous Blood Culture - Final NO GROWTH AFTER 5 DAYS INCUBATION 09/01/15 08:53 Blood - Peripheral Venous Blood Culture - Final NO GROWTH AFTER 5 DAYS INCUBATION 09/01/15 10:10 Urine - Urine - Catheterized Urine Culture - Final 08/25/15 15:00 Blood - Peripheral Venous Blood Culture - Final NO GROWTH AFTER 5 DAYS INCUBATION 08/25/15 15:00 Blood - Peripheral Venous Blood Culture - Final NO GROWTH AFTER 5 DAYS INCUBATION 08/24/15 19:30 Stool Clostridium difficile Antigen (MACHO) - Final 08/24/15 19:30 Stool Clostridium difficile Toxin Assay - Final 08/14/15 10:50 Blood - Peripheral Venous Blood Culture - Final NO GROWTH AFTER 5 DAYS INCUBATION 08/14/15 10:50 Blood - Peripheral Venous Blood Culture - Final NO GROWTH AFTER 5 DAYS INCUBATION 08/02/15 17:20 Blood - Peripheral Venous Blood Culture - Final NO GROWTH AFTER 5 DAYS INCUBATION 08/02/15 17:20 Blood - Peripheral Venous Blood Culture - Final NO GROWTH AFTER 5 DAYS INCUBATION 07/24/15 21:50 Sputum - Endotrachea Suction/Ventilator Gram Stain - Final 07/24/15 21:50 Sputum - Endotrachea Suction/Ventilator Sputum Culture - Final NORMAL RESPIRATORY ARMAND 07/30/15 18:30 Blood - Peripheral Venous Blood Culture - Final NO GROWTH AFTER 5 DAYS INCUBATION 07/30/15 18:30 Blood - Peripheral Venous Blood Culture - Final NO GROWTH AFTER 5 DAYS INCUBATION 08/02/15 19:00 Urine - Urine Schwartz Urine Culture - Final NO GROWTH OBTAINED 08/02/15 22:55 Stool Clostridium difficile Antigen (MACHO) - Final 08/02/15 22:55 Stool Clostridium difficile Toxin Assay - Final 07/27/15 19:00 Blood - Peripheral Venous Blood Culture - Final NO GROWTH AFTER 5 DAYS INCUBATION 07/27/15 19:00 Blood - Peripheral Venous Blood Culture - Final NO GROWTH AFTER 5 DAYS INCUBATION 07/27/15 19:30 Stool Clostridium difficile (PCR) - Final 07/27/15 15:55 Urine - Urine Schwartz Urine Culture - Final NO GROWTH OBTAINED 07/15/15 11:30 Blood - Peripheral Venous Blood Culture - Final NO GROWTH AFTER 5 DAYS INCUBATION 07/15/15 11:30 Blood - Peripheral Venous Blood Culture - Final NO GROWTH AFTER 5 DAYS INCUBATION 07/10/15 10:30 Stool Stool Culture - Final NO SALMONELLA, SHIGELLA, YERSINIA, CAMPYLOBACTER OR E COLI 0157 ISOLATED 07/10/15 10:35 Stool Clostridium difficile Antigen (MACHO) - Final 07/10/15 10:35 Stool Clostridium difficile Toxin Assay - Final 07/10/15 10:30 Stool Gram Stain - Final 07/02/15 18:00 Blood - Peripheral Venous Blood Culture - Final NO GROWTH AFTER 5 DAYS INCUBATION 07/02/15 18:00 Blood - Peripheral Venous Blood Culture - Final NO GROWTH AFTER 5 DAYS INCUBATION 06/28/15 09:32 Blood - Peripheral Venous Blood Culture - Final NO GROWTH AFTER 5 DAYS INCUBATION 06/28/15 09:32 Blood - Peripheral Venous Blood Culture - Final NO GROWTH AFTER 5 DAYS INCUBATION 06/28/15 17:30 Sputum - Endotrachea Suction/Ventilator Gram Stain - Final 06/28/15 17:30 Sputum - Endotrachea Suction/Ventilator Sputum Culture - Final NORMAL RESPIRATORY ARMAND 06/27/15 20:30 Urine - Urine Schwartz Urine Culture - Final NO GROWTH OBTAINED 06/28/15 10:00 Urine For Antigen Detection Legionella Antigen - Final 06/28/15 10:00 Urine For Antigen Detection Streptococcus pneumoniae Antigen (M - Final Assessment/Plan Wound #1 Diagnosis: Pressure ulcer Wound specific intervention: Wound Wound #1 Type of wound: Yes: Pressure ulcer Stage: III healed Location/laterality: Right buttock Wound size: healed skin Wound #2 Type of wound: Yes: Pressure ulcer Stage: III (Healing stage III) Location/laterality: Left buttock - superior Wound size: .5cmL x .5cmW x .1cmD Thickness: Partial Undermining: No Tunneling: No Drainage/exudate: No Wound bed tissue: Yes: Erythematous Wound edges color: erythematous Wound edges raised: No Wound edges rolled: No Wound edges contracted: No Pain: No Surrounding tissue to 4cm: Yes: Healthy Wound #3 Type of wound: Yes: Pressure ulcer Stage: II healed Location/laterality: Left buttock - inferior Surrounding tissue to 4cm: Yes: Healthy Assessment/Plan Wound #1 Diagnosis: Pressure ulcer Wound specific intervention: Healed. Allevyn sacral dressing for protection Wound #2 Diagnosis: Pressure ulcer Wound specific intervention: Allevyn sacral dressing only; no barrier cream Wound #3 Diagnosis: Pressure ulcer Wound specific intervention: Allevyn sacral dressing for protection Impediments to healing: Limited mobility, Unable to self-position in bed, Hypoalbunemia, Nutritional deficiencies, Incontinence of urine, Incontinence of bowel, Other (Trach collar; PEG) Nutrition/Dietary supplements/vitamins: - continue TF Glucerna 1.5 at goal rate of 60 ml/hr (2160 kcal/118 gm Prot ) - continue water flushes at 50 ml/hr - continue weekly weights for close monitoring Support Surface: [email or web address] Sport Bed HOB elevation: 30 degrees Off-loading: Turning/repositioning q2h, Elevate heels off bed with pillows Incontinence management: Avoid diapers; if must be used, do not secure around patient Wound #2 Diagnosis: Pressure ulcer Wound #3 Diagnosis: Pressure ulcer
[2016-07-12] MEDS: INSULIN DETEMIR 100 UNITS/ML MDV SQ SCH (21:24)
[2016-07-13] MEDS: INSULIN SLIDING SCALE (NOVOLOG) 1 VIAL SQ SCH ×2 (06:17→17:05)
--- NOTE | 2016-07-13 08:40 | PN ---
Physical Exam: SUBJECTIVE: Patient seen and examined OBJECTIVE: Vital Signs Period Temp Pulse Resp BP Sys/Santiago Pulse Ox Last 24 Hr 97.2 F-99.2 F 74-97 16-18 128-145/76-88 97-100 GENERAL/NEURO: Eyes open. Non-verbal. Does not follow commands. Non-purposeful movement. HEAD: Normal with no signs of trauma. Trach. EYES: PERRL, extraocular movements intact, sclera anicteric, conjunctiva clear. No ptosis. ENT: Ears normal, nares patent, oropharynx clear without exudates, moist mucous membranes. LUNGS: CTA; on trach collar; no wheezing, no rhonchi, no accessory muscle use. HEART: Regular rate and rhythm, S1, S2 without murmur, rub or gallop. ABDOMEN: Soft, nontender, nondistended, normoactive bowel sounds, no guarding, no rebound, no hepatosplenomegaly, no masses. PEG tube. EXTREMITIES: 2+ pulses, warm, well-perfused, no edema. SKIN: Healing Stage III upper left buttock pressure ulcer; all other wounds have healed CBCD WBC 7.1 K/mm3 (4.0-10.0) 07/11/16 07:19 RBC 3.82 M/mm3 (4.00-5.60) L 07/11/16 07:19 Hgb 10.9 GM/dL (11.7-16.9) L 07/11/16 07:19 Hct 32.8 % (35.4-49) L 07/11/16 07:19 MCV 85.7 fl (80-96) 07/11/16 07:19 MCHC 33.2 g/dl (32.0-35.9) 07/11/16 07:19 RDW 16.0 % (11.9-15.9) H 07/11/16 07:19 Plt Count 174 K/MM3 (134-434) 07/11/16 07:19 MPV 9.6 fl (7.5-11.1) 07/11/16 07:19 CMP Sodium 141 mmol/L (136-145) 07/11/16 06:00 Potassium 3.8 mmol/L (3.5-5.1) 07/11/16 06:00 Chloride 104 mmol/L (98-107) 07/11/16 06:00 Carbon Dioxide 33 mmol/L (21-32) H 07/11/16 06:00 Anion Gap 4 (8-16) L 07/11/16 06:00 BUN 23 mg/dL (7-18) H 07/11/16 06:00 Creatinine 0.8 mg/dL (0.7-1.3) 07/11/16 06:00 Creat Clearance w eGFR > 60 (>60) 07/11/16 06:00 Calcium 9.4 mg/dL (8.5-10.1) 07/11/16 06:00 Total Bilirubin 0.3 mg/dL (0.2-1.0) 07/11/16 06:00 AST 20 U/L (15-37) 07/11/16 06:00 ALT 41 U/L (12-78) D 07/11/16 06:00 Alkaline Phosphatase 137 U/L (45-117) H 07/11/16 06:00 Total Protein 7.9 g/dl (6.4-8.2) 07/11/16 06:00 Albumin 3.4 g/dl (3.4-5.0) 07/11/16 06:00 Active Medications Generic Name Dose Route Start Last Admin Trade Name Freq PRN Reason Stop Dose Admin Acetaminophen 650 mg 05/26/16 14:23 06/01/16 01:47 Tylenol Oral Solution - GT 650 mg Q4H PRN Administration FEVER Albuterol/Ipratropium 1 amp 07/02/16 12:54 07/12/16 12:08 Duoneb - NEB 1 amp Q4H PRN Administration SHORTNESS OF BREATH Amino Acids 30 ml 06/28/16 10:00 07/12/16 11:00 Prostat Sugar-Free Packet - PO 30 ml DAILY KWAKU Administration Amlodipine Besylate 10 mg 12/30/15 10:00 07/12/16 10:59 Norvasc - GT 10 mg DAILY KWAKU Administration Guaifenesin 10 ml 12/29/15 10:43 05/16/16 10:16 Robitussin Dm - PO 10 ml Q6H PRN Administration COUGH Insulin Aspart 1 vial 01/28/16 16:30 07/13/16 06:17 Novolog Vial Sliding Scale - SQ Not Given BIDI [facility] Protocol Insulin Detemir 14 units 05/05/16 22:00 07/12/16 21:24 Levemir Vial SQ 14 units HS KWAKU Administration Lactobacillus Acidophilus 1 tab 12/30/15 10:00 07/12/16 10:59 Bacid - PO 1 tab DAILY KWAKU Administration Lisinopril 40 mg 12/30/15 10:00 07/12/16 10:59 Prinivil - GT 40 mg DAILY KWAKU Administration Metoprolol Tartrate 150 mg 12/29/15 22:00 07/12/16 21:25 Lopressor - GT 150 mg BID KWAKU Administration Metoprolol Tartrate 5 mg 12/29/15 10:43 Lopressor Injection - IVPB Q6H PRN HYPERTENSION Multivitamins 5 ml 12/30/15 10:00 07/12/16 11:00 Thera-Plus - GT 5 ml DAILY KWAKU Administration Pantoprazole Sodium 40 mg 12/30/15 10:00 07/12/16 11:00 Protonix Packets For Oral Suspension - GT 40 mg DAILY KWAKU Administration Scopolamine HBr 1 patch 05/20/16 15:45 07/10/16 16:41 Transderm-Scop - TD 1 patch Q72H KWAKU Administration ASSESSMENT/PLAN: 75 year old male with PMHx of HTN, IDDM, inguinal hernia who presented to the ED with diverticular bleed s/p right hemicolectomy. 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 DNR. Visit Type - Emergency Visit Emergency Visit: Yes ED Registration Date: 06/27/15 Care time: The patient presented to the Emergency Department on the above date and was hospitalized for further evaluation of their emergent condition. - New Patient This patient is new to me today: No - Critical Care Critical Care patient: No
[2016-07-13] MEDS: MULTIVITAMINS THERAPEUTIC GT SCH (10:55)
[2016-07-13] MEDS: METOPROLOL TARTRATE 50 MG TABLET (FP) GT SCH ×2 (10:55→22:06)
[2016-07-13] MEDS: PANTOPRAZOLE SOD 40 MG SUSPENSION PACKET GT SCH (10:55)
[2016-07-13] MEDS: AMINO ACIDS/PROTEIN HYDROLYS SUGAR-FREE 30 ML PACKET PO SCH (10:55)
[2016-07-13] MEDS: LISINOPRIL 20 MG TABLET (FP) GT SCH (10:55)
[2016-07-13] MEDS: LACTOBACILLUS ACIDOPHILUS 1 EACH TAB (FP) PO SCH (10:55)
[2016-07-13] MEDS: amLODIPine BESYLATE 10 MG TABLET (FP) GT SCH (10:55)
[2016-07-13] MEDS: SCOPOLAMINE HYDROBROMIDE 1 PATCH PATCH.TD72 TD SCH (14:54)
[2016-07-13] MEDS: ALBUTEROL SO4 2.5/IPRATROPIUM 0.5 INH SOL 3 ML VIAL.NEB. NEB PRN (15:15)
[2016-07-13] MEDS: INSULIN DETEMIR 100 UNITS/ML MDV SQ SCH (22:07)
[2016-07-14] MEDS: INSULIN SLIDING SCALE (NOVOLOG) 1 VIAL SQ SCH ×2 (06:44→17:24)
[2016-07-14] MEDS: LACTOBACILLUS ACIDOPHILUS 1 EACH TAB (FP) PO SCH (10:12)
[2016-07-14] MEDS: LISINOPRIL 20 MG TABLET (FP) GT SCH (10:13)
[2016-07-14] MEDS: METOPROLOL TARTRATE 50 MG TABLET (FP) GT SCH ×2 (10:13→22:37)
[2016-07-14] MEDS: amLODIPine BESYLATE 10 MG TABLET (FP) GT SCH (10:14)
[2016-07-14] MEDS: AMINO ACIDS/PROTEIN HYDROLYS SUGAR-FREE 30 ML PACKET PO SCH (10:18)
[2016-07-14] MEDS: PANTOPRAZOLE SOD 40 MG SUSPENSION PACKET GT SCH (10:18)
[2016-07-14] MEDS: MULTIVITAMINS THERAPEUTIC GT SCH (10:19)
--- NOTE | 2016-07-14 13:36 | PN ---
Physical Exam: SUBJECTIVE: Patient seen and examined. Nursing staff report no CIC. Pt resting quietly, no distress noted. OBJECTIVE: Vital Signs 3 Period Temp Pulse Resp BP Sys/Santiago Pulse Ox Last 24 Hr 98.2 F-98.8 F 70-86 18-22 136-160/72-94 98 GENERAL: The patient is awake, opens eyes to name, no purposeful movement, no speech HEAD: Normal with no signs of trauma. EYES: PERRL, extraocular movements intact, sclera anicteric, conjunctiva clear. No ptosis. ENT: Ears normal, nares patent, oropharynx clear without exudates, moist mucous membranes. NECK: Trachea midline, full range of motion, supple. LUNGS: Breath sounds equal, Grossly CTA B/L, diminished bilat bases HEART: Regular rate and rhythm, S1, S2 without murmur, rub or gallop. ABDOMEN: Soft, nontender, nondistended, normoactive bowel sounds, no guarding, no rebound, no hepatosplenomegaly, no masses. EXTREMITIES: 2+ pulses, warm, well-perfused, no edema. NEUROLOGICAL: Cranial nerves II through XII grossly intact. Normal speech, gait not observed. PSYCH: Normal mood, normal affect. SKIN: Warm, dry, normal turgor, no rashes or lesions noted, Stage 3 sacral ulcer , dressing intact Laboratory Results - last 24 hr 3 07/13/16 07/14/16 16:52 06:06 POC Glucometer 153 108 Active Medications 3 Generic Name Dose Route Start Last Admin Trade Name Freq PRN Reason Stop Dose Admin Acetaminophen 650 mg 05/26/16 14:23 06/01/16 01:47 Tylenol Oral Solution - GT 650 mg Q4H PRN Administration FEVER Albuterol/Ipratropium 1 amp 07/02/16 12:54 07/13/16 15:15 Duoneb - NEB 1 amp Q4H PRN Administration SHORTNESS OF BREATH Amino Acids 30 ml 06/28/16 10:00 07/14/16 10:18 Prostat Sugar-Free Packet - PO 30 ml DAILY KWAKU Administration Amlodipine Besylate 10 mg 12/30/15 10:00 07/14/16 10:14 Norvasc - GT 10 mg DAILY KWAKU Administration Guaifenesin 10 ml 12/29/15 10:43 05/16/16 10:16 Robitussin Dm - PO 10 ml Q6H PRN Administration COUGH Insulin Aspart 1 vial 01/28/16 16:30 07/14/16 06:44 Novolog Vial Sliding Scale - SQ Not Given BIDI [facility] Protocol Insulin Detemir 14 units 05/05/16 22:00 07/13/16 22:07 Levemir Vial SQ 14 units HS KWAKU Administration Lactobacillus Acidophilus 1 tab 12/30/15 10:00 07/14/16 10:12 Bacid - PO 1 tab DAILY KWAKU Administration Lisinopril 40 mg 12/30/15 10:00 07/14/16 10:13 Prinivil - GT 40 mg DAILY KWAKU Administration Metoprolol Tartrate 150 mg 12/29/15 22:00 07/14/16 10:13 Lopressor - GT 150 mg BID KWAKU Administration Metoprolol Tartrate 5 mg 12/29/15 10:43 Lopressor Injection - IVPB Q6H PRN HYPERTENSION Multivitamins 5 ml 12/30/15 10:00 07/14/16 10:19 Thera-Plus - GT 5 ml DAILY KWAKU Administration Pantoprazole Sodium 40 mg 12/30/15 10:00 07/14/16 10:18 Protonix Packets For Oral Suspension - GT 40 mg DAILY KWAKU Administration Scopolamine HBr 1 patch 05/20/16 15:45 07/13/16 14:54 Transderm-Scop - TD 1 patch Q72H KWAKU Administration ASSESSMENT/PLAN: 75 year old male with PMHx of HTN, IDDM, inguinal hernia who presented to the ED with diverticular bleed s/p right hemicolectomy. 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 Hydronephrosis, chronic --renal function stable Right inguinal hernia --incidental finding on CT --no surgical intervention at this time Anoxic brain injury s/p brainstem CVAs --mental status unchanged Respiratory failure secondary to anoxic brain injury --cont trach collar --Duonebs PRN Functional quadriplegia secondary to anoxic brain injury --inability to feed, turn, or toilet independently; requires complete care, high risk for aspiration pneumonia, pressure ulcers HTN --BP well-controlled --continue lisinopril, metoprolol, amlodipine Pressure ulcer --Allevyn dressing IDDM --Levemir --Novolog sliding scale coverage --fingersticks F/E/N Fluids/Nutrition: Tube feed Glucerna 1.5 @ 60mL/hr + 50mL/hr free water via pump; Prostat daily Electrolytes: replete as indicated DVT prophylaxis: SCDs, no chemical anticoagulation Dispo: continues to require inpatient care. DNR. Visit Type - Emergency Visit Emergency Visit: Yes ED Registration Date: 06/27/15 Care time: The patient presented to the Emergency Department on the above date and was hospitalized for further evaluation of their emergent condition. - New Patient This patient is new to me today: No - Critical Care Critical Care patient: No
[2016-07-14] MEDS: INSULIN DETEMIR 100 UNITS/ML MDV SQ SCH (22:38)
[2016-07-14] MEDS: ALBUTEROL SO4 2.5/IPRATROPIUM 0.5 INH SOL 3 ML VIAL.NEB. NEB PRN (23:45)
[2016-07-15] MEDS: ALBUTEROL SO4 2.5/IPRATROPIUM 0.5 INH SOL 3 ML VIAL.NEB. NEB PRN ×2 (05:13→22:30)
[2016-07-15] MEDS: INSULIN SLIDING SCALE (NOVOLOG) 1 VIAL SQ SCH ×2 (06:32→17:28)
[2016-07-15] MEDS: LACTOBACILLUS ACIDOPHILUS 1 EACH TAB (FP) PO SCH (10:34)
[2016-07-15] MEDS: METOPROLOL TARTRATE 50 MG TABLET (FP) GT SCH ×2 (10:34→22:16)
[2016-07-15] MEDS: amLODIPine BESYLATE 10 MG TABLET (FP) GT SCH (10:35)
[2016-07-15] MEDS: LISINOPRIL 20 MG TABLET (FP) GT SCH (10:35)
[2016-07-15] MEDS: AMINO ACIDS/PROTEIN HYDROLYS SUGAR-FREE 30 ML PACKET PO SCH (10:35)
[2016-07-15] MEDS: MULTIVITAMINS THERAPEUTIC GT SCH (10:36)
[2016-07-15] MEDS: PANTOPRAZOLE SOD 40 MG SUSPENSION PACKET GT SCH (10:36)
--- NOTE | 2016-07-15 18:28 | PN ---
Progress Note (short form) - Note Progress Note: Subjective: Pt seen and examined at bedside. He is non-verbal. Not following commands at this time Current Medications Generic Name Dose Route Start Last Admin Trade Name Ginette PRN Reason Stop Dose Admin Acetaminophen 650 mg 05/26/16 14:23 06/01/16 01:47 Tylenol Oral Solution - GT 650 mg Q4H PRN Administration FEVER Albuterol/Ipratropium 1 amp 07/02/16 12:54 07/15/16 05:13 Duoneb - NEB 1 amp Q4H PRN Administration SHORTNESS OF BREATH Amino Acids 30 ml 06/28/16 10:00 07/15/16 10:35 Prostat Sugar-Free Packet - PO 30 ml DAILY KWAKU Administration Amlodipine Besylate 10 mg 12/30/15 10:00 07/15/16 10:35 Norvasc - GT 10 mg DAILY KWAKU Administration Guaifenesin 10 ml 12/29/15 10:43 05/16/16 10:16 Robitussin Dm - PO 10 ml Q6H PRN Administration COUGH Insulin Aspart 1 vial 01/28/16 16:30 07/15/16 17:28 Novolog Vial Sliding Scale - SQ Not Given BIDI [facility] Protocol Insulin Detemir 14 units 05/05/16 22:00 07/14/16 22:38 Levemir Vial SQ 14 units HS KWAKU Administration Lactobacillus Acidophilus 1 tab 12/30/15 10:00 07/15/16 10:34 Bacid - PO 1 tab DAILY KWAKU Administration Lisinopril 40 mg 12/30/15 10:00 07/15/16 10:35 Prinivil - GT 40 mg DAILY KWAKU Administration Metoprolol Tartrate 150 mg 12/29/15 22:00 07/15/16 10:34 Lopressor - GT 150 mg BID KWAKU Administration Metoprolol Tartrate 5 mg 12/29/15 10:43 Lopressor Injection - IVPB Q6H PRN HYPERTENSION Multivitamins 5 ml 12/30/15 10:00 07/15/16 10:36 Thera-Plus - GT 5 ml DAILY KWAKU Administration Pantoprazole Sodium 40 mg 12/30/15 10:00 07/15/16 10:36 Protonix Packets For Oral Suspension - GT 40 mg DAILY KWAKU Administration Scopolamine HBr 1 patch 05/20/16 15:45 07/13/16 14:54 Transderm-Scop - TD 1 patch Q72H KWAKU Administration Objective: Vital Signs Period Temp Pulse Resp BP Sys/Santiago Pulse Ox Last 24 Hr 98 F-99.0 F 77-86 20-22 132-160/72-90 97-98 Physical Exam: General: No acute distress Neuro: Eye tracking to verbal stimulus Pulm: Tach collar, CTA anteriorly CV: RRR, S1S2 Abd: Soft, non-distended. Normoactive bowel sounds. Peg tube c/d/i Ext: Warm, well-perfused. 2+ DP/PT bilaterally CBCD WBC 7.1 K/mm3 (4.0-10.0) 07/11/16 07:19 RBC 3.82 M/mm3 (4.00-5.60) L 07/11/16 07:19 Hgb 10.9 GM/dL (11.7-16.9) L 07/11/16 07:19 Hct 32.8 % (35.4-49) L 07/11/16 07:19 MCV 85.7 fl (80-96) 07/11/16 07:19 MCHC 33.2 g/dl (32.0-35.9) 07/11/16 07:19 RDW 16.0 % (11.9-15.9) H 07/11/16 07:19 Plt Count 174 K/MM3 (134-434) 07/11/16 07:19 MPV 9.6 fl (7.5-11.1) 07/11/16 07:19 CMP Sodium 141 mmol/L (136-145) 07/11/16 06:00 Potassium 3.8 mmol/L (3.5-5.1) 07/11/16 06:00 Chloride 104 mmol/L (98-107) 07/11/16 06:00 Carbon Dioxide 33 mmol/L (21-32) H 07/11/16 06:00 Anion Gap 4 (8-16) L 07/11/16 06:00 BUN 23 mg/dL (7-18) H 07/11/16 06:00 Creatinine 0.8 mg/dL (0.7-1.3) 07/11/16 06:00 Creat Clearance w eGFR > 60 (>60) 07/11/16 06:00 Random Glucose 105 mg/dL (74-106) 07/11/16 06:00 Calcium 9.4 mg/dL (8.5-10.1) 07/11/16 06:00 Total Bilirubin 0.3 mg/dL (0.2-1.0) 07/11/16 06:00 AST 20 U/L (15-37) 07/11/16 06:00 ALT 41 U/L (12-78) D 07/11/16 06:00 Alkaline Phosphatase 137 U/L (45-117) H 07/11/16 06:00 Total Protein 7.9 g/dl (6.4-8.2) 07/11/16 06:00 Albumin 3.4 g/dl (3.4-5.0) 07/11/16 06:00 CARDIAC ENZYMES Creatine Kinase 62 IU/L (38-174) 06/28/15 09:35 Troponin I 0.07 ng/ml (0.03-0.5) D 07/09/15 05:00 Assessment: 75 year old male with PMHx of HTN, IDDM, inguinal hernia who presented to the ED with diverticular bleed s/p Righ hemicolectomy with 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 Plan: 1. Anoxic brain injury s/p brainstem CVAs - Mental status unchanged 2. Respiratory failure secondary to anoxic brain injury - Cont trach collar - Duonebs PRN 3. HTN - Continue lisinopril, metoprolol, amlodipine 4. Multiple pressure ulcers - Turn and position q2h 5. IDDM - Continue Levemir at 14u sq qhs - ISS BGM ACHS 6. F/E/N: - Tube feeds 7. Prophylaxis: - SCDs bilaterally - No chemical anticoagulation 2/2 spontaneous gluteal bleed and severe GI bleed - Functional quadriplegia CODE STATUS: DNR
[2016-07-15] MEDS: INSULIN DETEMIR 100 UNITS/ML MDV SQ SCH (22:16)
[2016-07-16] MEDS: ALBUTEROL SO4 2.5/IPRATROPIUM 0.5 INH SOL 3 ML VIAL.NEB. NEB PRN ×2 (02:35→06:00)
[2016-07-16] MEDS: INSULIN SLIDING SCALE (NOVOLOG) 1 VIAL SQ SCH ×2 (06:14→16:28)
[2016-07-16] MEDS: LACTOBACILLUS ACIDOPHILUS 1 EACH TAB (FP) PO SCH (11:48)
[2016-07-16] MEDS: LISINOPRIL 20 MG TABLET (FP) GT SCH (11:48)
[2016-07-16] MEDS: amLODIPine BESYLATE 10 MG TABLET (FP) GT SCH (11:48)
[2016-07-16] MEDS: METOPROLOL TARTRATE 50 MG TABLET (FP) GT SCH ×2 (11:48→22:08)
[2016-07-16] MEDS: MULTIVITAMINS THERAPEUTIC GT SCH (11:49)
[2016-07-16] MEDS: PANTOPRAZOLE SOD 40 MG SUSPENSION PACKET GT SCH (11:49)
[2016-07-16] MEDS: AMINO ACIDS/PROTEIN HYDROLYS SUGAR-FREE 30 ML PACKET PO SCH (11:49)
--- NOTE | 2016-07-16 11:55 | PN ---
Progress Note (short form) - Note Progress Note: Subjective: The patient was seen and examined at the bedside, he has just vomited again. Had one bout of vomiting this AM. Tube feeds still on hold until vomiting resolves Current Medications Generic Name Dose Route Start Last Admin Trade Name Freq PRN Reason Stop Dose Admin Acetaminophen 650 mg 05/26/16 14:23 06/01/16 01:47 Tylenol Oral Solution - GT 650 mg Q4H PRN Administration FEVER Albuterol/Ipratropium 1 amp 07/02/16 12:54 07/16/16 06:00 Duoneb - NEB 1 amp Q4H PRN Administration SHORTNESS OF BREATH Amino Acids 30 ml 06/28/16 10:00 07/16/16 11:49 Prostat Sugar-Free Packet - PO 30 ml DAILY KWAKU Administration Amlodipine Besylate 10 mg 12/30/15 10:00 07/16/16 11:48 Norvasc - GT 10 mg DAILY KWAKU Administration Guaifenesin 10 ml 12/29/15 10:43 05/16/16 10:16 Robitussin Dm - PO 10 ml Q6H PRN Administration COUGH Insulin Aspart 1 vial 01/28/16 16:30 07/16/16 06:14 Novolog Vial Sliding Scale - SQ Not Given BIDI [facility] Protocol Insulin Detemir 14 units 05/05/16 22:00 07/15/16 22:16 Levemir Vial SQ 14 units HS KWAKU Administration Lactobacillus Acidophilus 1 tab 12/30/15 10:00 07/16/16 11:48 Bacid - PO 1 tab DAILY KWAKU Administration Lisinopril 40 mg 12/30/15 10:00 07/16/16 11:48 Prinivil - GT 40 mg DAILY KWAKU Administration Metoprolol Tartrate 150 mg 12/29/15 22:00 07/16/16 11:48 Lopressor - GT 150 mg BID KWAKU Administration Metoprolol Tartrate 5 mg 12/29/15 10:43 Lopressor Injection - IVPB Q6H PRN HYPERTENSION Multivitamins 5 ml 12/30/15 10:00 07/16/16 11:49 Thera-Plus - GT 5 ml DAILY KWAKU Administration Pantoprazole Sodium 40 mg 12/30/15 10:00 07/16/16 11:49 Protonix Packets For Oral Suspension - GT 40 mg DAILY KWAKU Administration Scopolamine HBr 1 patch 05/20/16 15:45 07/13/16 14:54 Transderm-Scop - TD 1 patch Q72H KWAKU Administration Objective: Vital Signs Period Temp Pulse Resp BP Sys/Santiago Pulse Ox Last 24 Hr 97.7 F-98.9 F 76-90 20-22 136-158/72-90 97-98 Physical Exam: General: No acute distress Neuro: Eye tracking to verbal stimulus Pulm: Tach collar, CTA anteriorly CV: RRR, S1S2 Abd: Soft, non-distended. Normoactive bowel sounds. Peg tube c/d/i Ext: Warm, well-perfused. 2+ DP/PT bilaterally CBCD WBC 7.1 K/mm3 (4.0-10.0) 07/11/16 07:19 RBC 3.82 M/mm3 (4.00-5.60) L 07/11/16 07:19 Hgb 10.9 GM/dL (11.7-16.9) L 07/11/16 07:19 Hct 32.8 % (35.4-49) L 07/11/16 07:19 MCV 85.7 fl (80-96) 07/11/16 07:19 MCHC 33.2 g/dl (32.0-35.9) 07/11/16 07:19 RDW 16.0 % (11.9-15.9) H 07/11/16 07:19 Plt Count 174 K/MM3 (134-434) 07/11/16 07:19 MPV 9.6 fl (7.5-11.1) 07/11/16 07:19 CMP Sodium 141 mmol/L (136-145) 07/11/16 06:00 Potassium 3.8 mmol/L (3.5-5.1) 07/11/16 06:00 Chloride 104 mmol/L (98-107) 07/11/16 06:00 Carbon Dioxide 33 mmol/L (21-32) H 07/11/16 06:00 Anion Gap 4 (8-16) L 07/11/16 06:00 BUN 23 mg/dL (7-18) H 07/11/16 06:00 Creatinine 0.8 mg/dL (0.7-1.3) 07/11/16 06:00 Creat Clearance w eGFR > 60 (>60) 07/11/16 06:00 Random Glucose 105 mg/dL (74-106) 07/11/16 06:00 Calcium 9.4 mg/dL (8.5-10.1) 07/11/16 06:00 Total Bilirubin 0.3 mg/dL (0.2-1.0) 07/11/16 06:00 AST 20 U/L (15-37) 07/11/16 06:00 ALT 41 U/L (12-78) D 07/11/16 06:00 Alkaline Phosphatase 137 U/L (45-117) H 07/11/16 06:00 Total Protein 7.9 g/dl (6.4-8.2) 07/11/16 06:00 Albumin 3.4 g/dl (3.4-5.0) 07/11/16 06:00 CARDIAC ENZYMES Creatine Kinase 62 IU/L (38-174) 06/28/15 09:35 Troponin I 0.07 ng/ml (0.03-0.5) D 07/09/15 05:00 Assessment: 75 year old male with PMHx of HTN, IDDM, inguinal hernia who presented to the ED with diverticular bleed s/p Righ hemicolectomy with 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 Plan: 1. Vomiting - Tube feeds on hold - Monitor for fevers 2. Anoxic brain injury s/p brainstem CVAs - Mental status unchanged 3. Respiratory failure secondary to anoxic brain injury - Cont trach collar - Duonebs PRN 4. HTN - Continue lisinopril, metoprolol, amlodipine 5. Multiple pressure ulcers - Turn and position q2h 6. IDDM - Continue Levemir at 14u sq qhs - ISS BGM ACHS 7. F/E/N: - Tube feeds on hold 2/2 vomiting 8. Prophylaxis: - SCDs bilaterally - No chemical anticoagulation 2/2 spontaneous gluteal bleed and severe GI bleed - Functional quadriplegia CODE STATUS: DNR
[2016-07-16] MEDS: SCOPOLAMINE HYDROBROMIDE 1 PATCH PATCH.TD72 TD SCH (16:22)
[2016-07-16] MEDS: INSULIN DETEMIR 100 UNITS/ML MDV SQ SCH (23:16)
[2016-07-17] MEDS: INSULIN SLIDING SCALE (NOVOLOG) 1 VIAL SQ SCH ×2 (06:14→17:32)
[2016-07-17 08:19] LABS: ALBUMIN 3.6 g/dl (3.4-5.0); ALK PHOS 110 U/L (45-117); ANION GAP 7 (8-16); BILIRUBIN,TOTAL 0.5 mg/dL (0.2-1.0); CALCIUM 9.7 mg/dL (8.5-10.1); CO2 30 mmol/L (21-32); GLUCOSE,RANDOM 98 mg/dL (74-106); MAGNESIUM 2.3 mg/dL (1.8-2.4); PHOSPHOROUS 3.5 mg/dL (2.5-4.9); SGOT/AST 17 U/L (15-37); SGPT/ALT 28 U/L (12-78); TOT PROT 8.1 g/dl (6.4-8.2)
[2016-07-17 09:32] LABS: MCH 28.1 pg (25.7-33.7); MCHC 32.2 g/dl (32.0-35.9); MEAN CELL VOLUME 87.1 fl (80-96); MEAN PLT VOLUME 9.6 fl (7.5-11.1); PLATELET COUNT 186 K/MM3 (134-434); RDW 16.3 % (11.9-15.9); WHITE BLOOD COUNT 6.5 K/mm3 (4.0-10.0)
[2016-07-17] MEDS: AMINO ACIDS/PROTEIN HYDROLYS SUGAR-FREE 30 ML PACKET PO SCH (11:19)
[2016-07-17] MEDS: METOPROLOL TARTRATE 50 MG TABLET (FP) GT SCH ×2 (11:19→21:30)
[2016-07-17] MEDS: MULTIVITAMINS THERAPEUTIC GT SCH (11:19)
[2016-07-17] MEDS: LISINOPRIL 20 MG TABLET (FP) GT SCH (11:19)
[2016-07-17] MEDS: amLODIPine BESYLATE 10 MG TABLET (FP) GT SCH (11:19)
[2016-07-17] MEDS: LACTOBACILLUS ACIDOPHILUS 1 EACH TAB (FP) PO SCH (11:19)
[2016-07-17] MEDS: PANTOPRAZOLE SOD 40 MG SUSPENSION PACKET GT SCH (11:19)
--- NOTE | 2016-07-17 12:15 | PN ---
Progress Note (short form) - Note Progress Note: events noted vomiting over the weekend tube feeds held now resumed NAD afebrile nonverbal Vital Signs Period Temp Pulse Resp BP Sys/Santiago Pulse Ox Last 24 Hr 98.5 F-98.9 F 77-85 20-22 129-152/74-88 98 cor-rrr lungs decreased bs at bases abd soft,nt +gt ext no edema CBC, BMP 07/17/16 06:40 07/17/16 06:40 cxray reviewed- unchanged from 06/14 bibasialr atelectasis more likely a/p s/p vomiting resolved doubt pneumonia- stable cxray, no fevers or leukocytosis, no respiratory distress noted would observe, no need to treat for pneumonia at this time
--- NOTE | 2016-07-17 12:33 | PN ---
Progress Note (short form) - Note Progress Note: Subjective: The patient was seen and examined at the bedside, no vomiting today , tube feeds restarted at lower rate. Chest X-ray today with some infiltrates. ID reviewed, observe for now off abx Current Medications Generic Name Dose Route Start Last Admin Trade Name Freq PRN Reason Stop Dose Admin Acetaminophen 650 mg 05/26/16 14:23 06/01/16 01:47 Tylenol Oral Solution - GT 650 mg Q4H PRN Administration FEVER Albuterol/Ipratropium 1 amp 07/02/16 12:54 07/16/16 06:00 Duoneb - NEB 1 amp Q4H PRN Administration SHORTNESS OF BREATH Amino Acids 30 ml 06/28/16 10:00 07/17/16 11:19 Prostat Sugar-Free Packet - PO 30 ml DAILY KWAKU Administration Amlodipine Besylate 10 mg 12/30/15 10:00 07/17/16 11:19 Norvasc - GT 10 mg DAILY KWAKU Administration Guaifenesin 10 ml 12/29/15 10:43 05/16/16 10:16 Robitussin Dm - PO 10 ml Q6H PRN Administration COUGH Insulin Aspart 1 vial 01/28/16 16:30 07/17/16 06:14 Novolog Vial Sliding Scale - SQ Not Given BIDI [facility] Protocol Insulin Detemir 14 units 05/05/16 22:00 07/16/16 23:16 Levemir Vial SQ 14 units HS KWAKU Administration Lactobacillus Acidophilus 1 tab 12/30/15 10:00 07/17/16 11:19 Bacid - PO 1 tab DAILY KWAKU Administration Lisinopril 40 mg 12/30/15 10:00 07/17/16 11:19 Prinivil - GT 40 mg DAILY KWAKU Administration Metoprolol Tartrate 150 mg 12/29/15 22:00 07/17/16 11:19 Lopressor - GT 150 mg BID KWAKU Administration Metoprolol Tartrate 5 mg 12/29/15 10:43 Lopressor Injection - IVPB Q6H PRN HYPERTENSION Multivitamins 5 ml 12/30/15 10:00 07/17/16 11:19 Thera-Plus - GT 5 ml DAILY KWAKU Administration Pantoprazole Sodium 40 mg 12/30/15 10:00 07/17/16 11:19 Protonix Packets For Oral Suspension - GT 40 mg DAILY KWAKU Administration Scopolamine HBr 1 patch 05/20/16 15:45 07/16/16 16:22 Transderm-Scop - TD 1 patch Q72H KWAKU Administration Objective: Vital Signs Period Temp Pulse Resp BP Sys/Santiago Pulse Ox Last 24 Hr 98.5 F-98.9 F 77-85 20-22 129-152/74-88 98 Physical Exam: General: No acute distress Neuro: Eye tracking to verbal stimulus Pulm: Tach collar, CTA anteriorly CV: RRR, S1S2 Abd: Soft, non-distended. Normoactive bowel sounds. Peg tube c/d/i Ext: Warm, well-perfused. 2+ DP/PT bilaterally CBCD WBC 6.5 K/mm3 (4.0-10.0) 07/17/16 06:40 RBC 3.95 M/mm3 (4.00-5.60) L 07/17/16 06:40 Hgb 11.1 GM/dL (11.7-16.9) L 07/17/16 06:40 Hct 34.4 % (35.4-49) L 07/17/16 06:40 MCV 87.1 fl (80-96) 07/17/16 06:40 MCHC 32.2 g/dl (32.0-35.9) 07/17/16 06:40 RDW 16.3 % (11.9-15.9) H 07/17/16 06:40 Plt Count 186 K/MM3 (134-434) 07/17/16 06:40 MPV 9.6 fl (7.5-11.1) 07/17/16 06:40 CMP Sodium 142 mmol/L (136-145) 07/17/16 06:40 Potassium 3.7 mmol/L (3.5-5.1) 07/17/16 06:40 Chloride 105 mmol/L (98-107) 07/17/16 06:40 Carbon Dioxide 30 mmol/L (21-32) 07/17/16 06:40 Anion Gap 7 (8-16) L 07/17/16 06:40 BUN 20 mg/dL (7-18) H 07/17/16 06:40 Creatinine 1.0 mg/dL (0.7-1.3) D 07/17/16 06:40 Creat Clearance w eGFR > 60 (>60) 07/17/16 06:40 Random Glucose 98 mg/dL (74-106) 07/17/16 06:40 Calcium 9.7 mg/dL (8.5-10.1) 07/17/16 06:40 Total Bilirubin 0.5 mg/dL (0.2-1.0) D 07/17/16 06:40 AST 17 U/L (15-37) 07/17/16 06:40 ALT 28 U/L (12-78) D 07/17/16 06:40 Alkaline Phosphatase 110 U/L (45-117) 07/17/16 06:40 Total Protein 8.1 g/dl (6.4-8.2) 07/17/16 06:40 Albumin 3.6 g/dl (3.4-5.0) 07/17/16 06:40 CARDIAC ENZYMES Creatine Kinase 62 IU/L (38-174) 06/28/15 09:35 Troponin I 0.07 ng/ml (0.03-0.5) D 07/09/15 05:00 Assessment: 75 year old male with PMHx of HTN, IDDM, inguinal hernia who presented to the ED with diverticular bleed s/p Righ hemicolectomy with 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 Plan: 1. Vomiting - Resolved - Tube feeds resumed - Chest X-ray reviewed, per ID will observe off abx - Monitor for fevers 2. Anoxic brain injury s/p brainstem CVAs - Mental status unchanged 3. Respiratory failure secondary to anoxic brain injury - Cont trach collar - Duonebs PRN 4. HTN - Continue lisinopril, metoprolol, amlodipine 5. Multiple pressure ulcers - Turn and position q2h 6. IDDM - Continue Levemir at 14u sq qhs - ISS BGM ACHS 7. F/E/N: - Tube feeds resumed at lower rate, continue to titrate until at goal 8. Prophylaxis: - SCDs bilaterally - No chemical anticoagulation 2/2 spontaneous gluteal bleed and severe GI bleed - Functional quadriplegia CODE STATUS: DNR
[2016-07-17] MEDS: INSULIN DETEMIR 100 UNITS/ML MDV SQ SCH (21:30)
[2016-07-18] MEDS: INSULIN SLIDING SCALE (NOVOLOG) 1 VIAL SQ SCH ×2 (06:23→17:10)
[2016-07-18] MEDS: METOPROLOL TARTRATE 50 MG TABLET (FP) GT SCH ×2 (09:23→21:58)
[2016-07-18] MEDS: LISINOPRIL 20 MG TABLET (FP) GT SCH (09:23)
[2016-07-18] MEDS: amLODIPine BESYLATE 10 MG TABLET (FP) GT SCH (09:23)
[2016-07-18] MEDS: AMINO ACIDS/PROTEIN HYDROLYS SUGAR-FREE 30 ML PACKET PO SCH (09:23)
[2016-07-18] MEDS: PANTOPRAZOLE SOD 40 MG SUSPENSION PACKET GT SCH (09:23)
[2016-07-18] MEDS: LACTOBACILLUS ACIDOPHILUS 1 EACH TAB (FP) PO SCH (09:23)
[2016-07-18] MEDS: MULTIVITAMINS THERAPEUTIC GT SCH (09:23)
[2016-07-18] MEDS: guaiFENesin/D-METHORPHAN HB 10 ML UNIT-DOSE CUPS PO PRN (09:23)
--- NOTE | 2016-07-18 10:04 | PN ---
Progress Note (short form) - Note Progress Note: Hospitalist Progress Note This patient presented to the emergency department and was admitted for further evaluation of their emergent condition. SUBJECTIVE: Patient seen and examined. Patient is nonverbal. Not following commands. OBJECTIVE: Vital Signs Period Temp Pulse Resp BP Sys/Satniago Pulse Ox Last 24 Hr 97.5 F-99.2 F 81-92 20-22 138-162/82-92 98 General: No acute distress Neuro: Eye tracking to verbal stimulus Pulm: Tach collar, CTA anteriorly, + secretions CV: RRR, S1S2 Abd: Soft, non-distended. Normoactive bowel sounds. Peg tube c/d/i Ext: Warm, well-perfused. 2+ DP/PT bilaterally CBCD WBC 6.5 K/mm3 (4.0-10.0) 07/17/16 06:40 RBC 3.95 M/mm3 (4.00-5.60) L 07/17/16 06:40 Hgb 11.1 GM/dL (11.7-16.9) L 07/17/16 06:40 Hct 34.4 % (35.4-49) L 07/17/16 06:40 MCV 87.1 fl (80-96) 07/17/16 06:40 MCHC 32.2 g/dl (32.0-35.9) 07/17/16 06:40 RDW 16.3 % (11.9-15.9) H 07/17/16 06:40 Plt Count 186 K/MM3 (134-434) 07/17/16 06:40 MPV 9.6 fl (7.5-11.1) 07/17/16 06:40 CMP Sodium 142 mmol/L (136-145) 07/17/16 06:40 Potassium 3.7 mmol/L (3.5-5.1) 07/17/16 06:40 Chloride 105 mmol/L (98-107) 07/17/16 06:40 Carbon Dioxide 30 mmol/L (21-32) 07/17/16 06:40 Anion Gap 7 (8-16) L 07/17/16 06:40 BUN 20 mg/dL (7-18) H 07/17/16 06:40 Creatinine 1.0 mg/dL (0.7-1.3) D 07/17/16 06:40 Creat Clearance w eGFR > 60 (>60) 07/17/16 06:40 Calcium 9.7 mg/dL (8.5-10.1) 07/17/16 06:40 Total Bilirubin 0.5 mg/dL (0.2-1.0) D 07/17/16 06:40 AST 17 U/L (15-37) 07/17/16 06:40 ALT 28 U/L (12-78) D 07/17/16 06:40 Alkaline Phosphatase 110 U/L (45-117) 07/17/16 06:40 Total Protein 8.1 g/dl (6.4-8.2) 07/17/16 06:40 Albumin 3.6 g/dl (3.4-5.0) 07/17/16 06:40 Current Medications Generic Name Dose Route Start Last Admin Trade Name Freq PRN Reason Stop Dose Admin Acetaminophen 650 mg 05/26/16 14:23 06/01/16 01:47 Tylenol Oral Solution - GT 650 mg Q4H PRN Administration FEVER Albuterol/Ipratropium 1 amp 07/02/16 12:54 07/16/16 06:00 Duoneb - NEB 1 amp Q4H PRN Administration SHORTNESS OF BREATH Amino Acids 30 ml 06/28/16 10:00 07/18/16 09:23 Prostat Sugar-Free Packet - PO 30 ml DAILY KWAKU Administration Amlodipine Besylate 10 mg 12/30/15 10:00 07/18/16 09:23 Norvasc - GT 10 mg DAILY KWAKU Administration Guaifenesin 10 ml 12/29/15 10:43 07/18/16 09:23 Robitussin Dm - PO 10 ml Q6H PRN Administration COUGH Insulin Aspart 1 vial 01/28/16 16:30 07/18/16 06:23 Novolog Vial Sliding Scale - SQ Not Given BIDI [facility] Protocol Insulin Detemir 14 units 05/05/16 22:00 07/17/16 21:30 Levemir Vial SQ 14 units HS KWAKU Administration Lactobacillus Acidophilus 1 tab 12/30/15 10:00 07/18/16 09:23 Bacid - PO 1 tab DAILY KWAKU Administration Lisinopril 40 mg 12/30/15 10:00 07/18/16 09:23 Prinivil - GT 40 mg DAILY KWAKU Administration Metoprolol Tartrate 150 mg 12/29/15 22:00 07/18/16 09:23 Lopressor - GT 150 mg BID KWAKU Administration Metoprolol Tartrate 5 mg 12/29/15 10:43 Lopressor Injection - IVPB Q6H PRN HYPERTENSION Multivitamins 5 ml 12/30/15 10:00 07/18/16 09:23 Thera-Plus - GT 5 ml DAILY KWAKU Administration Pantoprazole Sodium 40 mg 12/30/15 10:00 07/18/16 09:23 Protonix Packets For Oral Suspension - GT 40 mg DAILY KWAKU Administration Scopolamine HBr 1 patch 05/20/16 15:45 07/16/16 16:22 Transderm-Scop - TD 1 patch Q72H KWAKU Administration ASSESSMENT/PLAN:75 year old male with PMHx of HTN, IDDM, inguinal hernia who presented to the ED with diverticular bleed s/p Righ hemicolectomy with 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 Anoxic brain injury s/p brainstem CVAs - Mental status unchanged Respiratory failure secondary to anoxic brain injury - Cont trach collar - Duonebs PRN - suctioning prn Vomiting - Resolved - Tube feeds resumed - Chest X-ray reviewed, per ID will observe off abx - Monitor for fevers HTN - Continue lisinopril, metoprolol, amlodipine Multiple pressure ulcers - Turn and position q2h IDDM - Continue Levemir sq qhs - ISS BGM ACHS F/E/N: - Tube feeds resumed at lower rate, continue to titrate until at goal Prophylaxis: - SCDs bilaterally - No chemical anticoagulation 2/2 spontaneous gluteal bleed and severe GI bleed - PT -Functional quadriplegia
[2016-07-18] MEDS: INSULIN DETEMIR 100 UNITS/ML MDV SQ SCH (21:58)
[2016-07-19] MEDS: INSULIN SLIDING SCALE (NOVOLOG) 1 VIAL SQ SCH ×2 (06:36→17:43)
[2016-07-19] MEDS: PANTOPRAZOLE SOD 40 MG SUSPENSION PACKET GT SCH (10:59)
[2016-07-19] MEDS: MULTIVITAMINS THERAPEUTIC GT SCH (10:59)
[2016-07-19] MEDS: METOPROLOL TARTRATE 50 MG TABLET (FP) GT SCH ×2 (10:59→21:46)
[2016-07-19] MEDS: LISINOPRIL 20 MG TABLET (FP) GT SCH (10:59)
[2016-07-19] MEDS: amLODIPine BESYLATE 10 MG TABLET (FP) GT SCH (10:59)
[2016-07-19] MEDS: LACTOBACILLUS ACIDOPHILUS 1 EACH TAB (FP) PO SCH (10:59)
[2016-07-19] MEDS: AMINO ACIDS/PROTEIN HYDROLYS SUGAR-FREE 30 ML PACKET PO SCH (11:00)
--- NOTE | 2016-07-19 12:54 | PN ---
Progress Note (short form) - Note Progress Note: Hospitalist Progress Note This patient presented to the emergency department and was admitted for further evaluation of their emergent condition. SUBJECTIVE: Patient seen and examined. Patient is nonverbal. Not following commands. OBJECTIVE: Vital Signs Period Temp Pulse Resp BP Sys/Santiago Pulse Ox Last 24 Hr 98.7 F-99.9 F 18-100 20-26 135-156/76-94 96-100 General: No acute distress Neuro: Eye tracking to verbal stimulus Pulm: Tach collar, CTA anteriorly, + secretions CV: RRR, S1S2 Abd: Soft, non-distended. Normoactive bowel sounds. Peg tube c/d/i Ext: Warm, well-perfused. 2+ DP/PT bilaterally CBCD WBC 6.5 K/mm3 (4.0-10.0) 07/17/16 06:40 RBC 3.95 M/mm3 (4.00-5.60) L 07/17/16 06:40 Hgb 11.1 GM/dL (11.7-16.9) L 07/17/16 06:40 Hct 34.4 % (35.4-49) L 07/17/16 06:40 MCV 87.1 fl (80-96) 07/17/16 06:40 MCHC 32.2 g/dl (32.0-35.9) 07/17/16 06:40 RDW 16.3 % (11.9-15.9) H 07/17/16 06:40 Plt Count 186 K/MM3 (134-434) 07/17/16 06:40 MPV 9.6 fl (7.5-11.1) 07/17/16 06:40 CMP Sodium 142 mmol/L (136-145) 07/17/16 06:40 Potassium 3.7 mmol/L (3.5-5.1) 07/17/16 06:40 Chloride 105 mmol/L (98-107) 07/17/16 06:40 Carbon Dioxide 30 mmol/L (21-32) 07/17/16 06:40 Anion Gap 7 (8-16) L 07/17/16 06:40 BUN 20 mg/dL (7-18) H 07/17/16 06:40 Creatinine 1.0 mg/dL (0.7-1.3) D 07/17/16 06:40 Creat Clearance w eGFR > 60 (>60) 07/17/16 06:40 Calcium 9.7 mg/dL (8.5-10.1) 07/17/16 06:40 Total Bilirubin 0.5 mg/dL (0.2-1.0) D 07/17/16 06:40 AST 17 U/L (15-37) 07/17/16 06:40 ALT 28 U/L (12-78) D 07/17/16 06:40 Alkaline Phosphatase 110 U/L (45-117) 07/17/16 06:40 Total Protein 8.1 g/dl (6.4-8.2) 07/17/16 06:40 Albumin 3.6 g/dl (3.4-5.0) 07/17/16 06:40 Current Medications Generic Name Dose Route Start Last Admin Trade Name Freq PRN Reason Stop Dose Admin Acetaminophen 650 mg 05/26/16 14:23 06/01/16 01:47 Tylenol Oral Solution - GT 650 mg Q4H PRN Administration FEVER Albuterol/Ipratropium 1 amp 07/02/16 12:54 07/16/16 06:00 Duoneb - NEB 1 amp Q4H PRN Administration SHORTNESS OF BREATH Amino Acids 30 ml 06/28/16 10:00 07/19/16 11:00 Prostat Sugar-Free Packet - PO 30 ml DAILY KWAKU Administration Amlodipine Besylate 10 mg 12/30/15 10:00 07/19/16 10:59 Norvasc - GT 10 mg DAILY KWAKU Administration Guaifenesin 10 ml 12/29/15 10:43 07/18/16 09:23 Robitussin Dm - PO 10 ml Q6H PRN Administration COUGH Insulin Aspart 1 vial 01/28/16 16:30 07/19/16 06:36 Novolog Vial Sliding Scale - SQ Not Given BIDI [facility] Protocol Insulin Detemir 14 units 05/05/16 22:00 07/18/16 21:58 Levemir Vial SQ 14 units HS KWAKU Administration Lactobacillus Acidophilus 1 tab 12/30/15 10:00 07/19/16 10:59 Bacid - PO 1 tab DAILY KWAKU Administration Lisinopril 40 mg 12/30/15 10:00 07/19/16 10:59 Prinivil - GT 40 mg DAILY KWAKU Administration Metoprolol Tartrate 150 mg 12/29/15 22:00 07/19/16 10:59 Lopressor - GT 150 mg BID KWAKU Administration Metoprolol Tartrate 5 mg 12/29/15 10:43 Lopressor Injection - IVPB Q6H PRN HYPERTENSION Multivitamins 5 ml 12/30/15 10:00 07/19/16 10:59 Thera-Plus - GT 5 ml DAILY KWAKU Administration Pantoprazole Sodium 40 mg 12/30/15 10:00 07/19/16 10:59 Protonix Packets For Oral Suspension - GT 40 mg DAILY KWAKU Administration Scopolamine HBr 1 patch 05/20/16 15:45 07/16/16 16:22 Transderm-Scop - TD 1 patch Q72H KWAKU Administration ASSESSMENT/PLAN:75 year old male with PMHx of HTN, IDDM, inguinal hernia who presented to the ED with diverticular bleed s/p Righ hemicolectomy with 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 Anoxic brain injury s/p brainstem CVAs - Mental status unchanged Respiratory failure secondary to anoxic brain injury - Cont trach collar - Duonebs PRN - suctioning prn Vomiting - Resolved - Tube feeds resumed - Chest X-ray reviewed, per ID will observe off abx - Monitor for fevers HTN - Continue lisinopril, metoprolol, amlodipine Multiple pressure ulcers - Turn and position q2h IDDM - Continue Levemir sq qhs - ISS BGM ACHS F/E/N: - Tube feeds resumed at lower rate, continue to titrate until at goal Prophylaxis: - SCDs bilaterally - No chemical anticoagulation 2/2 spontaneous gluteal bleed and severe GI bleed - PT -Functional quadriplegia
[2016-07-19] MEDS: SCOPOLAMINE HYDROBROMIDE 1 PATCH PATCH.TD72 TD SCH ×2 (14:30→14:49)
[2016-07-19] MEDS: INSULIN DETEMIR 100 UNITS/ML MDV SQ SCH (21:45)
[2016-07-20] MEDS: INSULIN SLIDING SCALE (NOVOLOG) 1 VIAL SQ SCH ×2 (06:23→17:54)
[2016-07-20] MEDS: LACTOBACILLUS ACIDOPHILUS 1 EACH TAB (FP) PO SCH (09:39)
[2016-07-20] MEDS: MULTIVITAMINS THERAPEUTIC GT SCH (09:39)
[2016-07-20] MEDS: PANTOPRAZOLE SOD 40 MG SUSPENSION PACKET GT SCH (09:39)
[2016-07-20] MEDS: amLODIPine BESYLATE 10 MG TABLET (FP) GT SCH (09:39)
[2016-07-20] MEDS: METOPROLOL TARTRATE 50 MG TABLET (FP) GT SCH ×2 (09:39→23:53)
[2016-07-20] MEDS: LISINOPRIL 20 MG TABLET (FP) GT SCH (09:39)
--- NOTE | 2016-07-20 12:50 | PN ---
Physical Exam: SUBJECTIVE: Patient seen and examined OBJECTIVE: Vital Signs Period Temp Pulse Resp BP Sys/Santiago Pulse Ox Last 24 Hr 98.2 F-98.9 F 62-76 18-22 135-161/70-87 98 GENERAL/NEURO: Eyes open. Non-verbal. Does not follow commands. Non-purposeful movement. HEAD: Normal with no signs of trauma. Trach. EYES: PERRL, extraocular movements intact, sclera anicteric, conjunctiva clear. No ptosis. ENT: Ears normal, nares patent, oropharynx clear without exudates, moist mucous membranes. LUNGS: CTA; on trach collar; no wheezing, no rhonchi, no accessory muscle use. HEART: Regular rate and rhythm, S1, S2 without murmur, rub or gallop. ABDOMEN: Soft, nontender, nondistended, normoactive bowel sounds, no guarding, no rebound, no hepatosplenomegaly, no masses. PEG tube. EXTREMITIES: 2+ pulses, warm, well-perfused, no edema. SKIN: Healing Stage III upper left buttock pressure ulcer; all other wounds have healed Laboratory Results - last 24 hr 07/19/16 07/20/16 17:34 05:19 POC Glucometer 134 102 CBCD WBC 6.5 K/mm3 (4.0-10.0) 07/17/16 06:40 RBC 3.95 M/mm3 (4.00-5.60) L 07/17/16 06:40 Hgb 11.1 GM/dL (11.7-16.9) L 07/17/16 06:40 Hct 34.4 % (35.4-49) L 07/17/16 06:40 MCV 87.1 fl (80-96) 07/17/16 06:40 MCHC 32.2 g/dl (32.0-35.9) 07/17/16 06:40 RDW 16.3 % (11.9-15.9) H 07/17/16 06:40 Plt Count 186 K/MM3 (134-434) 07/17/16 06:40 MPV 9.6 fl (7.5-11.1) 07/17/16 06:40 CMP Sodium 142 mmol/L (136-145) 07/17/16 06:40 Potassium 3.7 mmol/L (3.5-5.1) 07/17/16 06:40 Chloride 105 mmol/L (98-107) 07/17/16 06:40 Carbon Dioxide 30 mmol/L (21-32) 07/17/16 06:40 Anion Gap 7 (8-16) L 07/17/16 06:40 BUN 20 mg/dL (7-18) H 07/17/16 06:40 Creatinine 1.0 mg/dL (0.7-1.3) D 07/17/16 06:40 Creat Clearance w eGFR > 60 (>60) 07/17/16 06:40 Calcium 9.7 mg/dL (8.5-10.1) 07/17/16 06:40 Total Bilirubin 0.5 mg/dL (0.2-1.0) D 07/17/16 06:40 AST 17 U/L (15-37) 07/17/16 06:40 ALT 28 U/L (12-78) D 07/17/16 06:40 Alkaline Phosphatase 110 U/L (45-117) 07/17/16 06:40 Total Protein 8.1 g/dl (6.4-8.2) 07/17/16 06:40 Albumin 3.6 g/dl (3.4-5.0) 07/17/16 06:40 Active Medications Generic Name Dose Route Start Last Admin Trade Name Freq PRN Reason Stop Dose Admin Acetaminophen 650 mg 05/26/16 14:23 06/01/16 01:47 Tylenol Oral Solution - GT 650 mg Q4H PRN Administration FEVER Albuterol/Ipratropium 1 amp 07/02/16 12:54 07/16/16 06:00 Duoneb - NEB 1 amp Q4H PRN Administration SHORTNESS OF BREATH Amino Acids 30 ml 06/28/16 10:00 07/19/16 11:00 Prostat Sugar-Free Packet - PO 30 ml DAILY KWAKU Administration Amlodipine Besylate 10 mg 12/30/15 10:00 07/20/16 09:39 Norvasc - GT 10 mg DAILY KWAKU Administration Guaifenesin 10 ml 12/29/15 10:43 07/18/16 09:23 Robitussin Dm - PO 10 ml Q6H PRN Administration COUGH Insulin Aspart 1 vial 01/28/16 16:30 07/20/16 06:23 Novolog Vial Sliding Scale - SQ Not Given BIDI [facility] Protocol Insulin Detemir 14 units 05/05/16 22:00 07/19/16 21:45 Levemir Vial SQ 14 units HS KWAKU Administration Lactobacillus Acidophilus 1 tab 12/30/15 10:00 07/20/16 09:39 Bacid - PO 1 tab DAILY KWAKU Administration Lisinopril 40 mg 12/30/15 10:00 07/20/16 09:39 Prinivil - GT 40 mg DAILY KWAKU Administration Metoprolol Tartrate 150 mg 12/29/15 22:00 07/20/16 09:39 Lopressor - GT 150 mg BID KWAKU Administration Metoprolol Tartrate 5 mg 12/29/15 10:43 Lopressor Injection - IVPB Q6H PRN HYPERTENSION Multivitamins 5 ml 12/30/15 10:00 07/20/16 09:39 Thera-Plus - GT 5 ml DAILY KWAKU Administration Pantoprazole Sodium 40 mg 12/30/15 10:00 07/20/16 09:39 Protonix Packets For Oral Suspension - GT 40 mg DAILY KWAKU Administration Scopolamine HBr 1 patch 05/20/16 15:45 07/19/16 14:49 Transderm-Scop - TD Not Given Q72H KWAKU ASSESSMENT/PLAN: 75 year old male with PMHx of HTN, IDDM, inguinal hernia who presented to the ED with diverticular bleed s/p right hemicolectomy. 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 DNR. Visit Type - Emergency Visit Emergency Visit: Yes ED Registration Date: 06/27/15 Care time: The patient presented to the Emergency Department on the above date and was hospitalized for further evaluation of their emergent condition. - New Patient This patient is new to me today: No - Critical Care Critical Care patient: No
[2016-07-20] MEDS: AMINO ACIDS/PROTEIN HYDROLYS SUGAR-FREE 30 ML PACKET PO SCH (15:45)
[2016-07-20] MEDS: INSULIN DETEMIR 100 UNITS/ML MDV SQ SCH (23:54)
[2016-07-21] MEDS: INSULIN SLIDING SCALE (NOVOLOG) 1 VIAL SQ SCH ×2 (06:08→18:04)
[2016-07-21] MEDS: LACTOBACILLUS ACIDOPHILUS 1 EACH TAB (FP) PO SCH (11:11)
[2016-07-21] MEDS: amLODIPine BESYLATE 10 MG TABLET (FP) GT SCH (11:11)
[2016-07-21] MEDS: METOPROLOL TARTRATE 50 MG TABLET (FP) GT SCH ×2 (11:12→21:50)
[2016-07-21] MEDS: LISINOPRIL 20 MG TABLET (FP) GT SCH (11:12)
[2016-07-21] MEDS: PANTOPRAZOLE SOD 40 MG SUSPENSION PACKET GT SCH (11:12)
[2016-07-21] MEDS: AMINO ACIDS/PROTEIN HYDROLYS SUGAR-FREE 30 ML PACKET PO SCH (11:12)
[2016-07-21] MEDS: MULTIVITAMINS THERAPEUTIC GT SCH (11:12)
--- NOTE | 2016-07-21 11:35 | PN ---
Physical Exam: SUBJECTIVE: Patient seen and examined. OBJECTIVE: Vital Signs Period Temp Pulse Resp BP Sys/Santiago Pulse Ox Last 24 Hr 98.6 F-99.5 F 71-83 16-20 128-147/60-99 97 GENERAL/NEURO: Eyes open. Non-verbal. Does not follow commands. Non-purposeful movement. HEAD: Normal with no signs of trauma. Trach. EYES: PERRL, extraocular movements intact, sclera anicteric, conjunctiva clear. No ptosis. ENT: Ears normal, nares patent, oropharynx clear without exudates, moist mucous membranes. LUNGS: CTA; on trach collar; no wheezing, no rhonchi, no accessory muscle use. HEART: Regular rate and rhythm, S1, S2 without murmur, rub or gallop. ABDOMEN: Soft, nontender, nondistended, normoactive bowel sounds, no guarding, no rebound, no hepatosplenomegaly, no masses. PEG tube. EXTREMITIES: 2+ pulses, warm, well-perfused, no edema. SKIN: Healing Stage III upper left buttock pressure ulcer; all other wounds have healed CBCD WBC 6.5 K/mm3 (4.0-10.0) 07/17/16 06:40 RBC 3.95 M/mm3 (4.00-5.60) L 07/17/16 06:40 Hgb 11.1 GM/dL (11.7-16.9) L 07/17/16 06:40 Hct 34.4 % (35.4-49) L 07/17/16 06:40 MCV 87.1 fl (80-96) 07/17/16 06:40 MCHC 32.2 g/dl (32.0-35.9) 07/17/16 06:40 RDW 16.3 % (11.9-15.9) H 07/17/16 06:40 Plt Count 186 K/MM3 (134-434) 07/17/16 06:40 MPV 9.6 fl (7.5-11.1) 07/17/16 06:40 CMP Sodium 142 mmol/L (136-145) 07/17/16 06:40 Potassium 3.7 mmol/L (3.5-5.1) 07/17/16 06:40 Chloride 105 mmol/L (98-107) 07/17/16 06:40 Carbon Dioxide 30 mmol/L (21-32) 07/17/16 06:40 Anion Gap 7 (8-16) L 07/17/16 06:40 BUN 20 mg/dL (7-18) H 07/17/16 06:40 Creatinine 1.0 mg/dL (0.7-1.3) D 07/17/16 06:40 Creat Clearance w eGFR > 60 (>60) 07/17/16 06:40 Calcium 9.7 mg/dL (8.5-10.1) 07/17/16 06:40 Total Bilirubin 0.5 mg/dL (0.2-1.0) D 07/17/16 06:40 AST 17 U/L (15-37) 07/17/16 06:40 ALT 28 U/L (12-78) D 07/17/16 06:40 Alkaline Phosphatase 110 U/L (45-117) 07/17/16 06:40 Total Protein 8.1 g/dl (6.4-8.2) 07/17/16 06:40 Albumin 3.6 g/dl (3.4-5.0) 07/17/16 06:40 Laboratory Results - last 24 hr 07/20/16 07/21/16 17:52 06:04 POC Glucometer 123 122 Active Medications Generic Name Dose Route Start Last Admin Trade Name Freq PRN Reason Stop Dose Admin Acetaminophen 650 mg 05/26/16 14:23 06/01/16 01:47 Tylenol Oral Solution - GT 650 mg Q4H PRN Administration FEVER Albuterol/Ipratropium 1 amp 07/02/16 12:54 07/16/16 06:00 Duoneb - NEB 1 amp Q4H PRN Administration SHORTNESS OF BREATH Amino Acids 30 ml 06/28/16 10:00 07/21/16 11:12 Prostat Sugar-Free Packet - PO 30 ml DAILY KWAKU Administration Amlodipine Besylate 10 mg 12/30/15 10:00 07/21/16 11:11 Norvasc - GT 10 mg DAILY KWAKU Administration Guaifenesin 10 ml 12/29/15 10:43 07/18/16 09:23 Robitussin Dm - PO 10 ml Q6H PRN Administration COUGH Insulin Aspart 1 vial 01/28/16 16:30 07/21/16 06:08 Novolog Vial Sliding Scale - SQ Not Given BIDI [facility] Protocol Insulin Detemir 14 units 05/05/16 22:00 07/20/16 23:54 Levemir Vial SQ 14 units HS KWAKU Administration Lactobacillus Acidophilus 1 tab 12/30/15 10:00 07/21/16 11:11 Bacid - PO 1 tab DAILY KWAKU Administration Lisinopril 40 mg 12/30/15 10:00 07/21/16 11:12 Prinivil - GT 40 mg DAILY KWAKU Administration Metoprolol Tartrate 150 mg 12/29/15 22:00 07/21/16 11:12 Lopressor - GT 150 mg BID KWAKU Administration Metoprolol Tartrate 5 mg 12/29/15 10:43 Lopressor Injection - IVPB Q6H PRN HYPERTENSION Multivitamins 5 ml 12/30/15 10:00 07/21/16 11:12 Thera-Plus - GT 5 ml DAILY KWAKU Administration Pantoprazole Sodium 40 mg 12/30/15 10:00 07/21/16 11:12 Protonix Packets For Oral Suspension - GT 40 mg DAILY KWAKU Administration Scopolamine HBr 1 patch 05/20/16 15:45 07/19/16 14:49 Transderm-Scop - TD Not Given Q72H KWAKU ASSESSMENT/PLAN: 75 year old male with PMHx of HTN, IDDM, inguinal hernia who presented to the ED with diverticular bleed s/p right hemicolectomy. 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 DNR. Visit Type - Emergency Visit Emergency Visit: Yes ED Registration Date: 06/27/15 Care time: The patient presented to the Emergency Department on the above date and was hospitalized for further evaluation of their emergent condition. - New Patient This patient is new to me today: No - Critical Care Critical Care patient: No
[2016-07-21] MEDS: INSULIN DETEMIR 100 UNITS/ML MDV SQ SCH (21:50)
[2016-07-22] MEDS: INSULIN SLIDING SCALE (NOVOLOG) 1 VIAL SQ SCH ×2 (06:51→16:51)
[2016-07-22] MEDS: LISINOPRIL 20 MG TABLET (FP) GT SCH (09:43)
[2016-07-22] MEDS: LACTOBACILLUS ACIDOPHILUS 1 EACH TAB (FP) PO SCH (09:44)
[2016-07-22] MEDS: AMINO ACIDS/PROTEIN HYDROLYS SUGAR-FREE 30 ML PACKET PO SCH (09:44)
[2016-07-22] MEDS: METOPROLOL TARTRATE 50 MG TABLET (FP) GT SCH (09:44)
[2016-07-22] MEDS: MULTIVITAMINS THERAPEUTIC GT SCH (09:44)
[2016-07-22] MEDS: PANTOPRAZOLE SOD 40 MG SUSPENSION PACKET GT SCH (09:44)
[2016-07-22] MEDS: amLODIPine BESYLATE 10 MG TABLET (FP) GT SCH (09:44)
[2016-07-22] MEDS: SCOPOLAMINE HYDROBROMIDE 1 PATCH PATCH.TD72 TD SCH (16:45)
--- NOTE | 2016-07-22 18:13 | PN ---
Physical Exam: SUBJECTIVE: Patient seen and examined OBJECTIVE: Vital Signs Period Temp Pulse Resp BP Sys/Santiago Pulse Ox Last 24 Hr 98.2 F-98.9 F 74-99 18-20 144-178/78-100 98-98 GENERAL: The patient is awake, alert, and fully oriented, in no acute distress. HEAD: Normal with no signs of trauma. EYES: PERRL, extraocular movements intact, sclera anicteric, conjunctiva clear. No ptosis. ENT: Ears normal, nares patent, oropharynx clear without exudates, moist mucous membranes. NECK: Trachea midline, full range of motion, supple. LUNGS: Breath sounds equal, clear to auscultation bilaterally, no wheezes, no crackles, no accessory muscle use. HEART: Regular rate and rhythm, S1, S2 without murmur, rub or gallop. ABDOMEN: Soft, nontender, nondistended, normoactive bowel sounds, no guarding, no rebound, no hepatosplenomegaly, no masses. EXTREMITIES: 2+ pulses, warm, well-perfused, no edema. NEUROLOGICAL: Cranial nerves II through XII grossly intact. Normal speech, gait not observed. PSYCH: Normal mood, normal affect. SKIN: Warm, dry, normal turgor, no rashes or lesions noted Laboratory Results - last 24 hr 07/21/16 07/22/16 07/22/16 18:01 05:49 16:47 POC Glucometer 138 111 123 Active Medications Generic Name Dose Route Start Last Admin Trade Name Freq PRN Reason Stop Dose Admin Acetaminophen 650 mg 05/26/16 14:23 06/01/16 01:47 Tylenol Oral Solution - GT 650 mg Q4H PRN Administration FEVER Albuterol/Ipratropium 1 amp 07/02/16 12:54 07/16/16 06:00 Duoneb - NEB 1 amp Q4H PRN Administration SHORTNESS OF BREATH Amino Acids 30 ml 06/28/16 10:00 07/22/16 09:44 Prostat Sugar-Free Packet - PO 30 ml DAILY KWAKU Administration Amlodipine Besylate 10 mg 12/30/15 10:00 07/22/16 09:44 Norvasc - GT 10 mg DAILY KWAKU Administration Guaifenesin 10 ml 12/29/15 10:43 07/18/16 09:23 Robitussin Dm - PO 10 ml Q6H PRN Administration COUGH Insulin Aspart 1 vial 01/28/16 16:30 07/22/16 16:51 Novolog Vial Sliding Scale - SQ Not Given BIDI [facility] Protocol Insulin Detemir 14 units 05/05/16 22:00 07/21/16 21:50 Levemir Vial SQ 14 units HS KWAKU Administration Lactobacillus Acidophilus 1 tab 12/30/15 10:00 07/22/16 09:44 Bacid - PO 1 tab DAILY KWAKU Administration Lisinopril 40 mg 12/30/15 10:00 07/22/16 09:43 Prinivil - GT 40 mg DAILY KWAKU Administration Metoprolol Tartrate 150 mg 12/29/15 22:00 07/22/16 09:44 Lopressor - GT 150 mg BID KWAKU Administration Metoprolol Tartrate 5 mg 12/29/15 10:43 Lopressor Injection - IVPB Q6H PRN HYPERTENSION Multivitamins 5 ml 12/30/15 10:00 07/22/16 09:44 Thera-Plus - GT 5 ml DAILY KWAKU Administration Pantoprazole Sodium 40 mg 12/30/15 10:00 07/22/16 09:44 Protonix Packets For Oral Suspension - GT 40 mg DAILY KWAKU Administration Scopolamine HBr 1 patch 05/20/16 15:45 07/22/16 16:45 Transderm-Scop - TD 1 patch Q72H KWAKU Administration ASSESSMENT/PLAN: 75 year old male with PMHx of HTN, IDDM, inguinal hernia who presented to the ED with diverticular bleed s/p right hemicolectomy. 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 DNR. Visit Type - Emergency Visit Emergency Visit: Yes ED Registration Date: 06/27/15 Care time: The patient presented to the Emergency Department on the above date and was hospitalized for further evaluation of their emergent condition. - New Patient This patient is new to me today: No - Critical Care Critical Care patient: No
[2016-07-22] MEDS: ALBUTEROL SO4 2.5/IPRATROPIUM 0.5 INH SOL 3 ML VIAL.NEB. NEB PRN (22:56)
[2016-07-23] MEDS: METOPROLOL TARTRATE 50 MG TABLET (FP) GT SCH ×3 (00:23→23:33)
[2016-07-23] MEDS: INSULIN DETEMIR 100 UNITS/ML MDV SQ SCH (00:24)
[2016-07-23] MEDS: INSULIN SLIDING SCALE (NOVOLOG) 1 VIAL SQ SCH ×2 (06:51→17:46)
[2016-07-23] MEDS: MULTIVITAMINS THERAPEUTIC GT SCH (10:05)
[2016-07-23] MEDS: PANTOPRAZOLE SOD 40 MG SUSPENSION PACKET GT SCH (10:05)
[2016-07-23] MEDS: AMINO ACIDS/PROTEIN HYDROLYS SUGAR-FREE 30 ML PACKET PO SCH (10:05)
[2016-07-23] MEDS: amLODIPine BESYLATE 10 MG TABLET (FP) GT SCH (10:06)
[2016-07-23] MEDS: LACTOBACILLUS ACIDOPHILUS 1 EACH TAB (FP) PO SCH (10:06)
[2016-07-23] MEDS: LISINOPRIL 20 MG TABLET (FP) GT SCH (10:07)
--- NOTE | 2016-07-23 13:32 | PN ---
Physical Exam: SUBJECTIVE: Patient seen and examined OBJECTIVE: Vital Signs Period Temp Pulse Resp BP Sys/Santiago Pulse Ox Last 24 Hr 98.2 F-98.9 F 74-88 18-20 144-168/89-98 96-98 GENERAL/NEURO: Eyes open. Non-verbal. Does not follow commands. Non-purposeful movement. HEAD: Normal with no signs of trauma. Trach. EYES: PERRL, extraocular movements intact, sclera anicteric, conjunctiva clear. No ptosis. ENT: Ears normal, nares patent, oropharynx clear without exudates, moist mucous membranes. LUNGS: CTA; on trach collar; no wheezing, no rhonchi, no accessory muscle use. HEART: Regular rate and rhythm, S1, S2 without murmur, rub or gallop. ABDOMEN: Soft, nontender, nondistended, normoactive bowel sounds, no guarding, no rebound, no hepatosplenomegaly, no masses. PEG tube. EXTREMITIES: 2+ pulses, warm, well-perfused, no edema. SKIN: Healing Stage III upper left buttock pressure ulcer; all other wounds have healed Laboratory Results - last 24 hr 07/22/16 07/23/16 16:47 06:49 POC Glucometer 123 97 CBCD WBC 6.5 K/mm3 (4.0-10.0) 07/17/16 06:40 RBC 3.95 M/mm3 (4.00-5.60) L 07/17/16 06:40 Hgb 11.1 GM/dL (11.7-16.9) L 07/17/16 06:40 Hct 34.4 % (35.4-49) L 07/17/16 06:40 MCV 87.1 fl (80-96) 07/17/16 06:40 MCHC 32.2 g/dl (32.0-35.9) 07/17/16 06:40 RDW 16.3 % (11.9-15.9) H 07/17/16 06:40 Plt Count 186 K/MM3 (134-434) 07/17/16 06:40 MPV 9.6 fl (7.5-11.1) 07/17/16 06:40 CMP Sodium 142 mmol/L (136-145) 07/17/16 06:40 Potassium 3.7 mmol/L (3.5-5.1) 07/17/16 06:40 Chloride 105 mmol/L (98-107) 07/17/16 06:40 Carbon Dioxide 30 mmol/L (21-32) 07/17/16 06:40 Anion Gap 7 (8-16) L 07/17/16 06:40 BUN 20 mg/dL (7-18) H 07/17/16 06:40 Creatinine 1.0 mg/dL (0.7-1.3) D 07/17/16 06:40 Creat Clearance w eGFR > 60 (>60) 07/17/16 06:40 Calcium 9.7 mg/dL (8.5-10.1) 07/17/16 06:40 Total Bilirubin 0.5 mg/dL (0.2-1.0) D 07/17/16 06:40 AST 17 U/L (15-37) 07/17/16 06:40 ALT 28 U/L (12-78) D 07/17/16 06:40 Alkaline Phosphatase 110 U/L (45-117) 07/17/16 06:40 Total Protein 8.1 g/dl (6.4-8.2) 07/17/16 06:40 Albumin 3.6 g/dl (3.4-5.0) 07/17/16 06:40 Active Medications Generic Name Dose Route Start Last Admin Trade Name Freq PRN Reason Stop Dose Admin Acetaminophen 650 mg 05/26/16 14:23 06/01/16 01:47 Tylenol Oral Solution - GT 650 mg Q4H PRN Administration FEVER Albuterol/Ipratropium 1 amp 07/02/16 12:54 07/22/16 22:56 Duoneb - NEB 1 amp Q4H PRN Administration SHORTNESS OF BREATH Amino Acids 30 ml 06/28/16 10:00 07/23/16 10:05 Prostat Sugar-Free Packet - PO 30 ml DAILY KWAKU Administration Amlodipine Besylate 10 mg 12/30/15 10:00 07/23/16 10:06 Norvasc - GT 10 mg DAILY KWAKU Administration Guaifenesin 10 ml 12/29/15 10:43 07/18/16 09:23 Robitussin Dm - PO 10 ml Q6H PRN Administration COUGH Insulin Aspart 1 vial 01/28/16 16:30 07/23/16 06:51 Novolog Vial Sliding Scale - SQ Not Given BIDI [facility] Protocol Insulin Detemir 14 units 05/05/16 22:00 07/23/16 00:24 Levemir Vial SQ 14 units HS KWAKU Administration Lactobacillus Acidophilus 1 tab 12/30/15 10:00 07/23/16 10:06 Bacid - PO 1 tab DAILY KWAKU Administration Lisinopril 40 mg 12/30/15 10:00 07/23/16 10:07 Prinivil - GT 40 mg DAILY KWAKU Administration Metoprolol Tartrate 150 mg 12/29/15 22:00 07/23/16 10:06 Lopressor - GT 150 mg BID KWAKU Administration Metoprolol Tartrate 5 mg 12/29/15 10:43 Lopressor Injection - IVPB Q6H PRN HYPERTENSION Multivitamins 5 ml 12/30/15 10:00 07/23/16 10:05 Thera-Plus - GT 5 ml DAILY KWAKU Administration Pantoprazole Sodium 40 mg 12/30/15 10:00 07/23/16 10:05 Protonix Packets For Oral Suspension - GT 40 mg DAILY KWAKU Administration Scopolamine HBr 1 patch 05/20/16 15:45 07/22/16 16:45 Transderm-Scop - TD 1 patch Q72H KWAKU Administration ASSESSMENT/PLAN: 75 year old male with PMHx of HTN, IDDM, inguinal hernia who presented to the ED with diverticular bleed s/p right hemicolectomy. 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 Episode of vomiting last night. 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 DNR. Visit Type - Emergency Visit Emergency Visit: Yes ED Registration Date: 06/27/15 Care time: The patient presented to the Emergency Department on the above date and was hospitalized for further evaluation of their emergent condition. - New Patient This patient is new to me today: No - Critical Care Critical Care patient: No
[2016-07-23] MEDS: SODIUM CHLORIDE 1,000 ML IV SCH (17:49)
[2016-07-23] MEDS: PIPERACILLIN/TAZOB 3.375 GM 50 ML IVPB SCH (17:50)
[2016-07-24] MEDS: PIPERACILLIN/TAZOB 3.375 GM 50 ML IVPB SCH (01:50)
[2016-07-24] MEDS: SODIUM CHLORIDE 1,000 ML IV SCH ×4 (04:55→23:00)
[2016-07-24] MEDS: INSULIN SLIDING SCALE (NOVOLOG) 1 VIAL SQ SCH ×2 (06:55→17:16)
[2016-07-24 07:45] LABS: BASOPHIL 0.6 % (0-2.0); EOSINOPHIL 5.9 % (0-4.5); MCHC 32.4 g/dl (32.0-35.9); MEAN CELL VOLUME 86.6 fl (80-96); NEUTROPHILS 71.4 % (42.8-82.8); PLATELET COUNT 201 K/MM3 (134-434); RDW 15.4 % (11.9-15.9); WHITE BLOOD COUNT 7.6 K/mm3 (4.0-10.0)
[2016-07-24 08:17] LABS: ALBUMIN 3.4 g/dl (3.4-5.0); ALK PHOS 99 U/L (45-117); ANION GAP 9 (8-16); BILIRUBIN,TOTAL 0.8 mg/dL (0.2-1.0); CALCIUM 9.3 mg/dL (8.5-10.1); CO2 27 mmol/L (21-32); CREATININE 0.9 mg/dL (0.7-1.3); GLUCOSE,RANDOM 93 mg/dL (74-106); PHOSPHOROUS 3.4 mg/dL (2.5-4.9); SGOT/AST 14 U/L (15-37); SGPT/ALT 25 U/L (12-78)
[2016-07-24] MEDS: ALBUTEROL SO4 2.5/IPRATROPIUM 0.5 INH SOL 3 ML VIAL.NEB. NEB PRN ×2 (10:00→22:35)
[2016-07-24] MEDS: METOPROLOL TARTRATE 50 MG TABLET (FP) GT SCH ×2 (11:13→21:47)
[2016-07-24] MEDS: LISINOPRIL 20 MG TABLET (FP) GT SCH (11:14)
[2016-07-24] MEDS: amLODIPine BESYLATE 10 MG TABLET (FP) GT SCH (11:14)
[2016-07-24] MEDS: AMINO ACIDS/PROTEIN HYDROLYS SUGAR-FREE 30 ML PACKET PO SCH (11:14)
[2016-07-24] MEDS: MULTIVITAMINS THERAPEUTIC GT SCH (11:14)
[2016-07-24] MEDS: LACTOBACILLUS ACIDOPHILUS 1 EACH TAB (FP) PO SCH (11:14)
[2016-07-24] MEDS: PANTOPRAZOLE SOD 40 MG SUSPENSION PACKET GT SCH (11:14)
--- NOTE | 2016-07-24 15:25 | PN ---
Physical Exam: Subjective: Patient seen and examined. When attempting to exam pt oral cavity, I was met with resistance, pt would not allow me to open. Objective: Vital Signs Period Temp Pulse Resp BP Sys/Santiago Pulse Ox Last 24 Hr 97.7 F-99.7 F 68-97 18-20 134-148/74-90 98-98 PE: Neuro: non verbal, awake HEENT: resistance to opening mouth Pulm: CTA anteriorly, + TC CV: s1 s2 rrr no mrg Abd: Soft, non-distended. Normoactive bowel sounds. Peg tube c/d/i Ext: Warm, no edema Laboratory Results - last 24 hr 07/23/16 07/24/16 07/24/16 16:10 06:53 07:00 WBC 7.6 RBC 3.93 L Hgb 11.0 L Hct 34.0 L MCV 86.6 MCHC 32.4 RDW 15.4 Plt Count 201 MPV 9.0 Neutrophils % 71.4 Lymphocytes % 17.4 D Monocytes % 4.7 Eosinophils % 5.9 H Basophils % 0.6 Sodium Potassium Chloride Carbon Dioxide Anion Gap BUN Creatinine Creat Clearance w eGFR POC Glucometer 101 92 Random Glucose Calcium Phosphorus Magnesium Total Bilirubin AST ALT Alkaline Phosphatase Total Protein Albumin 07/24/16 07:00 WBC RBC Hgb Hct MCV MCHC RDW Plt Count MPV Neutrophils % Lymphocytes % Monocytes % Eosinophils % Basophils % Sodium 144 Potassium 3.5 Chloride 108 H Carbon Dioxide 27 Anion Gap 9 BUN 15 D Creatinine 0.9 Creat Clearance w eGFR > 60 POC Glucometer Random Glucose 93 Calcium 9.3 Phosphorus 3.4 Magnesium 2.0 Total Bilirubin 0.8 D AST 14 L ALT 25 Alkaline Phosphatase 99 Total Protein 8.0 Albumin 3.4 Active Medications Generic Name Dose Route Start Last Admin Trade Name Freq PRN Reason Stop Dose Admin Acetaminophen 650 mg 05/26/16 14:23 06/01/16 01:47 Tylenol Oral Solution - GT 650 mg Q4H PRN Administration FEVER Albuterol/Ipratropium 1 amp 07/02/16 12:54 07/24/16 10:00 Duoneb - NEB 1 amp Q4H PRN Administration SHORTNESS OF BREATH Amino Acids 30 ml 06/28/16 10:00 07/24/16 11:14 Prostat Sugar-Free Packet - PO 30 ml DAILY [facility] Administration Amlodipine Besylate 10 mg 12/30/15 10:00 07/24/16 11:14 Norvasc - GT 10 mg DAILY [facility] Administration Guaifenesin 10 ml 12/29/15 10:43 07/18/16 09:23 Robitussin Dm - PO 10 ml Q6H PRN Administration COUGH Vancomycin HCl 250 mls @ 250 mls/hr 07/24/16 10:00 Vancomycin (Pre-Docked) IVPB DAILY [facility] Piperacillin Sod/Tazobactam Sod 50 mls @ 100 mls/hr 07/24/16 10:00 Zosyn 3.375gm Ivpb (Pre-Docked) IVPB Q8H-IV [facility] Sodium Chloride 1,000 mls @ 125 mls/hr 07/23/16 16:30 07/24/16 14:56 Normal Saline - IV 125 mls/hr ASDIR [facility] Administration Insulin Aspart 1 vial 01/28/16 16:30 07/24/16 06:55 Novolog Vial Sliding Scale - SQ Not Given BIDI [facility] Protocol Insulin Detemir 14 units 05/05/16 22:00 07/23/16 00:24 Levemir Vial SQ 14 units HS [facility] Administration Lactobacillus Acidophilus 1 tab 12/30/15 10:00 07/24/16 11:14 Bacid - PO 1 tab DAILY [facility] Administration Lisinopril 40 mg 12/30/15 10:00 07/24/16 11:14 Prinivil - GT 40 mg DAILY [facility] Administration Metoprolol Tartrate 150 mg 12/29/15 22:00 07/24/16 11:13 Lopressor - GT 150 mg BID [facility] Administration Metoprolol Tartrate 5 mg 12/29/15 10:43 Lopressor Injection - IVPB Q6H PRN HYPERTENSION Multivitamins 5 ml 12/30/15 10:00 07/24/16 11:14 Thera-Plus - GT 5 ml DAILY [facility] Administration Pantoprazole Sodium 40 mg 12/30/15 10:00 07/24/16 11:14 Protonix Packets For Oral Suspension - GT 40 mg DAILY [facility] Administration Scopolamine HBr 1 patch 05/20/16 15:45 07/22/16 16:45 Transderm-Scop - TD 1 patch Q72H [facility]U Administration Assessment: 75 year old male with PMHx of HTN, IDDM, inguinal hernia who presented to the ED with diverticular bleed s/p Righ hemicolectomy with 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 Plan: 1. Vomiting - No further vomiting - CXR reviewed - D/w ID discontinue abx as no clinical signs of pna 2. Anoxic brain injury s/p brainstem CVAs - Mental status unchanged 3. Respiratory failure secondary to anoxic brain injury - Cont trach collar - Duonebs PRN 4. Functional Quadriplegia - Pt moves all extremities but is total care d/t ROSAMARIA 5. HTN - BP well-controlled - Continue lisinopril, metoprolol, amlodipine 6. Hydronephrosis, chronic - Renal function stable 7. Right inguinal hernia - Incidental finding on CT - No surgical intervention at this time 8. Multiple pressure ulcers - Allevyn dressing 9. IDDM - Levemir - BGM, ISS ACHS 10. Nutrition - Fluids/Nutrition: Tube feed Glucerna 1.5 @ 60mL/hr + 50mL/hr free water via pump; Prostat daily 11. DVT prophylaxis: SCDs, no chemical anticoagulation risk of bleeding Visit Type - Emergency Visit Emergency Visit: Yes ED Registration Date: 06/27/15 Care time: The patient presented to the Emergency Department on the above date and was hospitalized for further evaluation of their emergent condition. - New Patient This patient is new to me today: No - Critical Care Critical Care patient: No Fluids/Nutrition: hold tube feeds; NS @ 125/hr Electrolytes: replete as indicated DVT prophylaxis: SCDs, no chemical anticoagulation Dispo: continues to require inpatient care. DNR.
--- NOTE | 2016-07-24 16:19 | PN ---
Progress Note (short form) - Note Progress Note: NAD one episode of vomiting several days ago Vital Signs Period Temp Pulse Resp BP Sys/Santiago Pulse Ox Last 24 Hr 97.7 F-99.7 F 68-97 18-20 134-148/74-90 98-98 no thrush, good oral hygiene trach cor-rrr llungs decreased bs at bases abd soft,nt ext no edema CBC, BMP 07/24/16 07:00 07/24/16 07:00 cxray (portable) unchanged - suspect atelectasis a/p doubt pneumonia no fever looks quite comfortable no respiratory distress no hypoxia dout pneumonia, observe off antibiotics
[2016-07-25] MEDS: ALBUTEROL SO4 2.5/IPRATROPIUM 0.5 INH SOL 3 ML VIAL.NEB. NEB PRN (05:45)
[2016-07-25] MEDS: INSULIN SLIDING SCALE (NOVOLOG) 1 VIAL SQ SCH ×2 (06:53→16:26)
--- NOTE | 2016-07-25 10:01 | PN ---
Physical Exam: Subjective: Patient seen and examined. Left peripheral IV infiltrated overnight. No further vomiting. Objective: Vital Signs Period Temp Pulse Resp BP Sys/Santiago Pulse Ox Last 24 Hr 97.7 F-99.7 F 65-95 18-20 134-148/65-90 98-98 PE Neuro: non verbal, awake, grimaces to pain to LUE HEENT: MM, no thrush Pulm: Trach color CV: s1 s2 rrr no mrg Abd: PEG tube, s nt nd +bs Ext: LUE swelling, open skin tears, weeping blisters, tender to deep palpation Laboratory Results - last 24 hr 07/24/16 07/25/16 17:13 06:51 POC Glucometer 119 85 Active Medications Generic Name Dose Route Start Last Admin Trade Name Freq PRN Reason Stop Dose Admin Acetaminophen 650 mg 05/26/16 14:23 06/01/16 01:47 Tylenol Oral Solution - GT 650 mg Q4H PRN Administration FEVER Albuterol/Ipratropium 1 amp 07/02/16 12:54 07/25/16 05:45 Duoneb - NEB 1 amp Q4H PRN Administration SHORTNESS OF BREATH Amino Acids 30 ml 06/28/16 10:00 07/24/16 11:14 Prostat Sugar-Free Packet - PO 30 ml DAILY [facility] Administration Amlodipine Besylate 10 mg 12/30/15 10:00 07/24/16 11:14 Norvasc - GT 10 mg DAILY [facility] Administration Guaifenesin 10 ml 12/29/15 10:43 07/18/16 09:23 Robitussin Dm - PO 10 ml Q6H PRN Administration COUGH Sodium Chloride 1,000 mls @ 125 mls/hr 07/23/16 16:30 07/24/16 23:00 Normal Saline - IV 125 mls/hr ASDIR [facility] Administration Insulin Aspart 1 vial 01/28/16 16:30 07/25/16 06:53 Novolog Vial Sliding Scale - SQ Not Given BIDI [facility] Protocol Insulin Detemir 14 units 05/05/16 22:00 07/23/16 00:24 Levemir Vial SQ 14 units HS [facility]U Administration Lactobacillus Acidophilus 1 tab 12/30/15 10:00 07/24/16 11:14 Bacid - PO 1 tab DAILY [facility]U Administration Lisinopril 40 mg 12/30/15 10:00 07/24/16 11:14 Prinivil - GT 40 mg DAILY [facility] Administration Metoprolol Tartrate 150 mg 12/29/15 22:00 07/24/16 21:47 Lopressor - GT 150 mg BID [facility]U Administration Metoprolol Tartrate 5 mg 12/29/15 10:43 Lopressor Injection - IVPB Q6H PRN HYPERTENSION Multivitamins 5 ml 12/30/15 10:00 07/24/16 11:14 Thera-Plus - GT 5 ml DAILY [facility]U Administration Pantoprazole Sodium 40 mg 12/30/15 10:00 07/24/16 11:14 Protonix Packets For Oral Suspension - GT 40 mg DAILY [facility] Administration Scopolamine HBr 1 patch 05/20/16 15:45 07/22/16 16:45 Transderm-Scop - TD 1 patch Q72H [facility] Administration Assessment: 75 year old male with PMHx of HTN, IDDM, inguinal hernia who presented to the ED with diverticular bleed s/p Righ hemicolectomy with 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 Plan: 1. LUE swelling - Overnight infiltrated IV - Open skin tears and weeping blisters - Elevate and cover with versitil - D/w ID will evaluate arm for abx 2. Vomiting - No further vomiting - Restart feeds per RD recs 3. Anoxic brain injury s/p brainstem CVAs - Mental status unchanged 4. Respiratory failure secondary to anoxic brain injury - Cont trach collar - Duonebs PRN 5. Functional Quadriplegia - Pt moves all extremities but is total care d/t ROSAMARIA 6. HTN - BP well-controlled - Continue lisinopril, metoprolol, amlodipine 7. Hydronephrosis, chronic - Renal function stable 8. Right inguinal hernia - Incidental finding on CT - No surgical intervention at this time 9. Multiple pressure ulcers - Allevyn dressing 10. IDDM - Levemir - BGM, ISS ACHS 11. Nutrition - Fluids/Nutrition: Tube feed Glucerna 1.5 @ 60mL/hr + 50mL/hr free water via pump; Prostat daily- ON hold, will fu RD recs 12. DVT prophylaxis: SCDs, no chemical anticoagulation risk of bleeding Visit Type - Emergency Visit Emergency Visit: Yes ED Registration Date: 06/27/15 Care time: The patient presented to the Emergency Department on the above date and was hospitalized for further evaluation of their emergent condition. - New Patient This patient is new to me today: No - Critical Care Critical Care patient: No
[2016-07-25] MEDS: PANTOPRAZOLE SOD 40 MG SUSPENSION PACKET GT SCH (12:09)
[2016-07-25] MEDS: LISINOPRIL 20 MG TABLET (FP) GT SCH (12:09)
[2016-07-25] MEDS: amLODIPine BESYLATE 10 MG TABLET (FP) GT SCH (12:09)
[2016-07-25] MEDS: METOPROLOL TARTRATE 50 MG TABLET (FP) GT SCH ×2 (12:09→22:23)
[2016-07-25] MEDS: LACTOBACILLUS ACIDOPHILUS 1 EACH TAB (FP) PO SCH (12:09)
[2016-07-25] MEDS: AMINO ACIDS/PROTEIN HYDROLYS SUGAR-FREE 30 ML PACKET PO SCH (12:10)
--- NOTE | 2016-07-25 14:18 | PN ---
Progress Note (short form) - Note Progress Note: asked to f/u for iv infiltration of the forearm iv fluids Vital Signs Period Temp Pulse Resp BP Sys/Santiago Pulse Ox Last 24 Hr 98.3 F-99.7 F 65-82 18-20 135-148/65-90 97-98 cor-rrr llungs decreased bs at bases abd soft,+gt ext some blisters with clear fluid, no erythema no purulence CBC, BMP 07/24/16 07:00 07/24/16 07:00 Current Medications Acetaminophen (Tylenol Oral Solution -) 650 mg GT Q4H PRN PRN Reason: FEVER Last Admin: 06/01/16 01:47 Dose: 650 mg Albuterol/Ipratropium (Duoneb -) 1 amp NEB Q4H PRN PRN Reason: SHORTNESS OF BREATH Last Admin: 07/25/16 05:45 Dose: 1 amp Amino Acids (Prostat Sugar-Free Packet -) 30 ml PO DAILY [facility] Last Admin: 07/25/16 12:10 Dose: 30 ml Amlodipine Besylate (Norvasc -) 10 mg GT DAILY [facility] Last Admin: 07/25/16 12:09 Dose: 10 mg Guaifenesin (Robitussin Dm -) 10 ml PO Q6H PRN PRN Reason: COUGH Last Admin: 07/18/16 09:23 Dose: 10 ml Sodium Chloride (Normal Saline -) 1,000 mls @ 125 mls/hr IV ASDIR [facility] Last Admin: 07/24/16 23:00 Dose: 125 mls/hr Insulin Aspart (Novolog Vial Sliding Scale -) 1 vial SQ BIDI [facility] PRN Reason: Protocol Last Admin: 07/25/16 06:53 Dose: Not Given Insulin Detemir (Levemir Vial) 14 units SQ HS [facility] Last Admin: 07/23/16 00:24 Dose: 14 units Lactobacillus Acidophilus (Bacid -) 1 tab PO DAILY [facility] Last Admin: 07/25/16 12:09 Dose: 1 tab Lisinopril (Prinivil -) 40 mg GT DAILY [facility] Last Admin: 07/25/16 12:09 Dose: 40 mg Metoprolol Tartrate (Lopressor -) 150 mg GT BID [facility] Last Admin: 07/25/16 12:09 Dose: 150 mg Metoprolol Tartrate (Lopressor Injection -) 5 mg IVPB Q6H PRN PRN Reason: HYPERTENSION Multivitamins (Thera-Plus -) 5 ml GT DAILY [facility] Last Admin: 07/24/16 11:14 Dose: 5 ml Pantoprazole Sodium (Protonix Packets For Oral Suspension -) 40 mg GT DAILY [facility] Last Admin: 07/25/16 12:09 Dose: 40 mg Scopolamine HBr (Transderm-Scop -) 1 patch TD Q72H [facility] Last Admin: 07/22/16 16:45 Dose: 1 patch a/p infliltration of ivf in forearm topical treatment with bacitracin and arm elevation suggest gi eval for intermittent vomiting- would he benefit from a motility agent?? please call back if needed
[2016-07-25] MEDS: MULTIVITAMINS THERAPEUTIC GT SCH (17:46)
[2016-07-25] MEDS: SCOPOLAMINE HYDROBROMIDE 1 PATCH PATCH.TD72 TD SCH (17:50)
[2016-07-25] MEDS: BACITRACIN/POLYMYXIN B SULFATE 15 GM TUBE TP SCH (22:23)
[2016-07-25] MEDS: INSULIN DETEMIR 100 UNITS/ML MDV SQ SCH (22:24)
[2016-07-26] MEDS: ALBUTEROL SO4 2.5/IPRATROPIUM 0.5 INH SOL 3 ML VIAL.NEB. NEB PRN (06:05)
[2016-07-26] MEDS: INSULIN SLIDING SCALE (NOVOLOG) 1 VIAL SQ SCH ×2 (07:08→17:11)
[2016-07-26] MEDS: LISINOPRIL 20 MG TABLET (FP) GT SCH (09:56)
[2016-07-26] MEDS: METOPROLOL TARTRATE 50 MG TABLET (FP) GT SCH ×2 (10:00→21:15)
[2016-07-26] MEDS: LACTOBACILLUS ACIDOPHILUS 1 EACH TAB (FP) PO SCH (10:01)
[2016-07-26] MEDS: amLODIPine BESYLATE 10 MG TABLET (FP) GT SCH (10:01)
[2016-07-26] MEDS: AMINO ACIDS/PROTEIN HYDROLYS SUGAR-FREE 30 ML PACKET PO SCH (10:02)
[2016-07-26] MEDS: BACITRACIN/POLYMYXIN B SULFATE 15 GM TUBE TP SCH ×2 (10:03→21:15)
[2016-07-26] MEDS: PANTOPRAZOLE SOD 40 MG SUSPENSION PACKET GT SCH (10:04)
[2016-07-26] MEDS: MULTIVITAMINS THERAPEUTIC GT SCH (10:04)
--- NOTE | 2016-07-26 11:24 | PN ---
Physical Exam: Subjective: Patient seen and examined. No acute events overnight. LUE swelling improved, restarted feeds with no vomiting. Objective: Vital Signs Period Temp Pulse Resp BP Sys/Santiago Pulse Ox Last 24 Hr 98.1 F-98.9 F 64-82 20-20 136-167/76-90 97-97 PE Neuro: non verbal, awake, grimaces to pain to LUE HEENT: MM, no thrush Pulm: Trach color CV: s1 s2 rrr no mrg Abd: PEG tube, s nt nd +bs Ext: LUE to arm, hand resolved, open skin tears, weeping blisters, fluid filled blisters Laboratory Results - last 24 hr 07/25/16 07/26/16 16:23 07:06 POC Glucometer 105 77 Active Medications Generic Name Dose Route Start Last Admin Trade Name Freq PRN Reason Stop Dose Admin Acetaminophen 650 mg 05/26/16 14:23 06/01/16 01:47 Tylenol Oral Solution - GT 650 mg Q4H PRN Administration FEVER Albuterol/Ipratropium 1 amp 07/02/16 12:54 07/26/16 06:05 Duoneb - NEB 1 amp Q4H PRN Administration SHORTNESS OF BREATH Amino Acids 30 ml 06/28/16 10:00 07/26/16 10:02 Prostat Sugar-Free Packet - PO 30 ml DAILY [facility] Administration Amlodipine Besylate 10 mg 12/30/15 10:00 07/26/16 10:01 Norvasc - GT 10 mg DAILY [facility] Administration Bacitracin/Polymyxin B Sulfate 1 applic 07/25/16 22:00 07/26/16 10:03 Polysporin Ointment - TP 1 applic BID [facility]U Administration Guaifenesin 10 ml 12/29/15 10:43 07/18/16 09:23 Robitussin Dm - PO 10 ml Q6H PRN Administration COUGH Insulin Aspart 1 vial 01/28/16 16:30 07/26/16 07:08 Novolog Vial Sliding Scale - SQ Not Given BIDI [facility] Protocol Insulin Detemir 14 units 05/05/16 22:00 07/25/16 22:24 Levemir Vial SQ 14 units HS [facility] Administration Lactobacillus Acidophilus 1 tab 12/30/15 10:00 07/26/16 10:01 Bacid - PO 1 tab DAILY [facility] Administration Lisinopril 40 mg 12/30/15 10:00 07/26/16 09:56 Prinivil - GT 40 mg DAILY [facility] Administration Metoprolol Tartrate 150 mg 12/29/15 22:00 07/26/16 10:00 Lopressor - GT 150 mg BID [facility] Administration Metoprolol Tartrate 5 mg 12/29/15 10:43 Lopressor Injection - IVPB Q6H PRN HYPERTENSION Multivitamins 5 ml 12/30/15 10:00 07/26/16 10:04 Thera-Plus - GT 5 ml DAILY [facility] Administration Pantoprazole Sodium 40 mg 12/30/15 10:00 07/26/16 10:04 Protonix Packets For Oral Suspension - GT 40 mg DAILY [facility] Administration Scopolamine HBr 1 patch 05/20/16 15:45 07/25/16 17:50 Transderm-Scop - TD 1 patch Q72H [facility] Administration Assessment: 75 year old male with PMHx of HTN, IDDM, inguinal hernia who presented to the ED with diverticular bleed s/p Righ hemicolectomy with 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 Plan: 1. LUE swelling d/t infiltrated IV - Swelling decreased - Open skin tears and weeping blisters remain - Elevate, apply bacitracin and wrap - No IV abx at this time per ID 2. Anoxic brain injury s/p brainstem CVAs - Mental status unchanged 3. Respiratory failure secondary to anoxic brain injury - Cont trach collar - Duonebs PRN 4. Functional Quadriplegia - Pt moves all extremities but is total care d/t ROSAMARIA 5. HTN - BP well-controlled - Continue lisinopril, metoprolol, amlodipine 6. Hydronephrosis, chronic - Renal function stable 7. Right inguinal hernia - Incidental finding on CT - No surgical intervention at this time 8. Multiple pressure ulcers - Allevyn dressing 9. IDDM - Levemir - BGM, ISS ACHS 10. Nutrition - Restart: Glucerna 1.5 @ 60mL/hr + 50mL/hr free water via pump - Prostat daily - Must keep HOB 30 degrees 12. DVT prophylaxis: SCDs, no chemical anticoagulation risk of bleeding Visit Type - Emergency Visit Emergency Visit: Yes ED Registration Date: 06/27/15 Care time: The patient presented to the Emergency Department on the above date and was hospitalized for further evaluation of their emergent condition. - New Patient This patient is new to me today: No - Critical Care Critical Care patient: No
[2016-07-26] MEDS: INSULIN DETEMIR 100 UNITS/ML MDV SQ SCH (21:15)
[2016-07-27] MEDS: INSULIN SLIDING SCALE (NOVOLOG) 1 VIAL SQ SCH ×2 (06:38→17:16)
[2016-07-27] MEDS: METOPROLOL TARTRATE 50 MG TABLET (FP) GT SCH ×2 (11:19→22:37)
[2016-07-27] MEDS: PANTOPRAZOLE SOD 40 MG SUSPENSION PACKET GT SCH (11:19)
[2016-07-27] MEDS: amLODIPine BESYLATE 10 MG TABLET (FP) GT SCH (11:19)
[2016-07-27] MEDS: LISINOPRIL 20 MG TABLET (FP) GT SCH (11:20)
[2016-07-27] MEDS: AMINO ACIDS/PROTEIN HYDROLYS SUGAR-FREE 30 ML PACKET PO SCH (11:20)
[2016-07-27] MEDS: LACTOBACILLUS ACIDOPHILUS 1 EACH TAB (FP) PO SCH (11:20)
[2016-07-27] MEDS: MULTIVITAMINS THERAPEUTIC GT SCH (11:20)
[2016-07-27] MEDS: BACITRACIN/POLYMYXIN B SULFATE 15 GM TUBE TP SCH ×2 (13:17→22:37)
--- NOTE | 2016-07-27 16:40 | PN ---
Physical Exam: SUBJECTIVE: Patient seen and examined. He is moving around the bed with eyes closed, non purposefully. OBJECTIVE: Vital Signs Period Temp Pulse Resp BP Sys/Santiago Pulse Ox Last 24 Hr 98.1 F-98.9 F 51-98 18-22 143-155/77-88 97-98 PE Neuro: non verbal, awake, grimaces to pain to LUE HEENT: MM, no thrush Pulm: Trach color CV: s1 s2 rrr no mrg Abd: PEG tube, s nt nd +bs Ext: LUE open skin tears- now closed, weeping blisters, large fluid filled blisters Laboratory Results - last 24 hr 07/26/16 07/27/16 17:10 06:33 POC Glucometer 114 98 Active Medications Generic Name Dose Route Start Last Admin Trade Name Freq PRN Reason Stop Dose Admin Acetaminophen 650 mg 05/26/16 14:23 06/01/16 01:47 Tylenol Oral Solution - GT 650 mg Q4H PRN Administration FEVER Amino Acids 30 ml 06/28/16 10:00 07/27/16 11:20 Prostat Sugar-Free Packet - PO 30 ml DAILY [facility] Administration Amlodipine Besylate 10 mg 12/30/15 10:00 07/27/16 11:19 Norvasc - GT 10 mg DAILY [facility] Administration Bacitracin/Polymyxin B Sulfate 1 applic 07/25/16 22:00 07/27/16 13:17 Polysporin Ointment - TP 1 applic BID [facility]U Administration Guaifenesin 10 ml 12/29/15 10:43 07/18/16 09:23 Robitussin Dm - PO 10 ml Q6H PRN Administration COUGH Insulin Aspart 1 vial 01/28/16 16:30 07/27/16 06:38 Novolog Vial Sliding Scale - SQ Not Given BIDI [facility] Protocol Insulin Detemir 14 units 05/05/16 22:00 07/26/16 21:15 Levemir Vial SQ 14 units HS [facility] Administration Lactobacillus Acidophilus 1 tab 12/30/15 10:00 07/27/16 11:20 Bacid - PO 1 tab DAILY [facility] Administration Lisinopril 40 mg 12/30/15 10:00 07/27/16 11:20 Prinivil - GT 40 mg DAILY [facility] Administration Metoprolol Tartrate 150 mg 12/29/15 22:00 07/27/16 11:19 Lopressor - GT 150 mg BID [facility] Administration Metoprolol Tartrate 5 mg 12/29/15 10:43 Lopressor Injection - IVPB Q6H PRN HYPERTENSION Multivitamins 5 ml 12/30/15 10:00 07/27/16 11:20 Thera-Plus - GT 5 ml DAILY [facility] Administration Pantoprazole Sodium 40 mg 12/30/15 10:00 07/27/16 11:19 Protonix Packets For Oral Suspension - GT 40 mg DAILY [facility] Administration Scopolamine HBr 1 patch 05/20/16 15:45 07/25/16 17:50 Transderm-Scop - TD 1 patch Q72H [facility] Administration Assessment: 75 year old male with PMHx of HTN, IDDM, inguinal hernia who presented to the ED with diverticular bleed s/p Righ hemicolectomy with 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 Plan: 1. LUE swelling d/t infiltrated IV - Open skin tears no scabbing over - Fluid filled blisters remain - Elevate, apply bacitracin and wrap - No IV abx at this time per ID 2. Anoxic brain injury s/p brainstem CVAs - Mental status unchanged 3. Respiratory failure secondary to anoxic brain injury - Cont trach collar - Duonebs PRN 4. Functional Quadriplegia - Pt moves all extremities but is total care d/t ROSAMARIA 5. HTN - BP well-controlled - Continue lisinopril, metoprolol, amlodipine 6. Hydronephrosis, chronic - Renal function stable 7. Right inguinal hernia - Incidental finding on CT - No surgical intervention at this time 8. Multiple pressure ulcers - Allevyn dressing 9. IDDM - Levemir - BGM, ISS ACHS 10. Nutrition - Glucerna 1.5 @ 60mL/hr + 50mL/hr free water via pump - Prostat daily - Must keep HOB 30 degrees at all times - Wait 20-30 mins to restart TF after administering total care to pt as to avoid aspiration and vomiting 12. DVT prophylaxis: SCDs, no chemical anticoagulation risk of bleeding Visit Type - Emergency Visit Emergency Visit: Yes ED Registration Date: 06/27/15 Care time: The patient presented to the Emergency Department on the above date and was hospitalized for further evaluation of their emergent condition. - New Patient This patient is new to me today: No - Critical Care Critical Care patient: No
[2016-07-27] MEDS: INSULIN DETEMIR 100 UNITS/ML MDV SQ SCH (22:36)
[2016-07-28] MEDS: INSULIN SLIDING SCALE (NOVOLOG) 1 VIAL SQ SCH ×2 (06:01→17:25)
[2016-07-28] MEDS: METOPROLOL TARTRATE 50 MG TABLET (FP) GT SCH ×2 (10:59→23:55)
[2016-07-28] MEDS: LACTOBACILLUS ACIDOPHILUS 1 EACH TAB (FP) PO SCH (10:59)
[2016-07-28] MEDS: amLODIPine BESYLATE 10 MG TABLET (FP) GT SCH (10:59)
[2016-07-28] MEDS: BACITRACIN/POLYMYXIN B SULFATE 15 GM TUBE TP SCH ×2 (11:00→22:00)
[2016-07-28] MEDS: PANTOPRAZOLE SOD 40 MG SUSPENSION PACKET GT SCH (11:00)
[2016-07-28] MEDS: MULTIVITAMINS THERAPEUTIC GT SCH (11:00)
[2016-07-28] MEDS: LISINOPRIL 20 MG TABLET (FP) GT SCH (11:00)
[2016-07-28] MEDS: AMINO ACIDS/PROTEIN HYDROLYS SUGAR-FREE 30 ML PACKET PO SCH (11:00)
--- NOTE | 2016-07-28 12:50 | PN ---
Physical Exam: Subjective: Patient seen and examined. He squeezes fingers when you place your own inside his hand. Objective: Vital Signs Period Temp Pulse Resp BP Sys/Santiago Pulse Ox Last 24 Hr 97.8 F-98.9 F 62-98 20-22 128-151/48-81 97-98 PE Neuro: non verbal, awake, non purposeful movement HEENT: MM, no thrush Pulm: Trach collar CV: s1 s2 rrr no mrg Abd: PEG tube, s nt nd +bs Ext: LUE mild edema, open skin tears ~7, scabbing over, 1 large fluid filled blister posterior forearm Laboratory Results - last 24 hr 07/27/16 07/28/16 17:14 05:44 POC Glucometer 110 103 Active Medications Generic Name Dose Route Start Last Admin Trade Name Freq PRN Reason Stop Dose Admin Acetaminophen 650 mg 05/26/16 14:23 06/01/16 01:47 Tylenol Oral Solution - GT 650 mg Q4H PRN Administration FEVER Amino Acids 30 ml 06/28/16 10:00 07/28/16 11:00 Prostat Sugar-Free Packet - PO 30 ml DAILY [facility] Administration Amlodipine Besylate 10 mg 12/30/15 10:00 07/28/16 10:59 Norvasc - GT 10 mg DAILY [facility] Administration Bacitracin/Polymyxin B Sulfate 1 applic 07/25/16 22:00 07/28/16 11:00 Polysporin Ointment - TP 1 applic BID [facility] Administration Guaifenesin 10 ml 12/29/15 10:43 07/18/16 09:23 Robitussin Dm - PO 10 ml Q6H PRN Administration COUGH Insulin Aspart 1 vial 01/28/16 16:30 07/28/16 06:01 Novolog Vial Sliding Scale - SQ Not Given BIDI [facility] Protocol Insulin Detemir 14 units 05/05/16 22:00 07/27/16 22:36 Levemir Vial SQ 14 units HS [facility] Administration Lactobacillus Acidophilus 1 tab 12/30/15 10:00 07/28/16 10:59 Bacid - PO 1 tab DAILY [facility] Administration Lisinopril 40 mg 12/30/15 10:00 07/28/16 11:00 Prinivil - GT 40 mg DAILY [facility] Administration Metoprolol Tartrate 150 mg 12/29/15 22:00 07/28/16 10:59 Lopressor - GT 150 mg BID [facility] Administration Metoprolol Tartrate 5 mg 12/29/15 10:43 Lopressor Injection - IVPB Q6H PRN HYPERTENSION Multivitamins 5 ml 12/30/15 10:00 07/28/16 11:00 Thera-Plus - GT 5 ml DAILY [facility] Administration Pantoprazole Sodium 40 mg 12/30/15 10:00 07/28/16 11:00 Protonix Packets For Oral Suspension - GT 40 mg DAILY [facility] Administration Scopolamine HBr 1 patch 05/20/16 15:45 07/25/16 17:50 Transderm-Scop - TD 1 patch Q72H [facility] Administration Assessment: 75 year old male with PMHx of HTN, IDDM, inguinal hernia who presented to the ED with diverticular bleed s/p Righ hemicolectomy with 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 Plan: 1. LUE swelling d/t infiltrated IV - Resolving - Fluid filled blister remain - Elevate, apply bacitracin and wrap - No IV abx at this time per ID 2. Anoxic brain injury s/p brainstem CVAs - Mental status unchanged 3. Respiratory failure secondary to anoxic brain injury - Cont trach collar - Duonebs PRN 4. Functional Quadriplegia - Pt moves all extremities but is total care d/t ROSAMARIA 5. HTN - BP well-controlled - Continue lisinopril, metoprolol, amlodipine 6. Hydronephrosis, chronic - Renal function stable 7. Right inguinal hernia - Incidental finding on CT - No surgical intervention at this time 8. Multiple pressure ulcers - Allevyn dressing 9. IDDM - Levemir - BGM, ISS ACHS 10. Nutrition - Glucerna 1.5 @ 60mL/hr + 50mL/hr free water via pump - Prostat daily - Must keep HOB 30 degrees at all times - Wait 20-30 mins to restart TF after administering total care to pt as to avoid aspiration and vomiting 12. DVT prophylaxis: SCDs, no chemical anticoagulation risk of bleeding Visit Type - Emergency Visit Emergency Visit: Yes ED Registration Date: 06/27/15 Care time: The patient presented to the Emergency Department on the above date and was hospitalized for further evaluation of their emergent condition. - New Patient This patient is new to me today: No - Critical Care Critical Care patient: No
[2016-07-28] MEDS: SCOPOLAMINE HYDROBROMIDE 1 PATCH PATCH.TD72 TD SCH (14:51)
[2016-07-28] MEDS: INSULIN DETEMIR 100 UNITS/ML MDV SQ SCH (23:00)
[2016-07-29] MEDS: INSULIN SLIDING SCALE (NOVOLOG) 1 VIAL SQ SCH ×2 (06:29→17:35)
[2016-07-29] MEDS: LISINOPRIL 20 MG TABLET (FP) GT SCH (11:06)
[2016-07-29] MEDS: METOPROLOL TARTRATE 50 MG TABLET (FP) GT SCH (11:07)
[2016-07-29] MEDS: LACTOBACILLUS ACIDOPHILUS 1 EACH TAB (FP) PO SCH (11:07)
[2016-07-29] MEDS: amLODIPine BESYLATE 10 MG TABLET (FP) GT SCH (11:07)
[2016-07-29] MEDS: BACITRACIN/POLYMYXIN B SULFATE 15 GM TUBE TP SCH (11:07)
[2016-07-29] MEDS: MULTIVITAMINS THERAPEUTIC GT SCH (11:08)
[2016-07-29] MEDS: PANTOPRAZOLE SOD 40 MG SUSPENSION PACKET GT SCH (11:08)
[2016-07-29] MEDS: AMINO ACIDS/PROTEIN HYDROLYS SUGAR-FREE 30 ML PACKET PO SCH (11:08)
--- NOTE | 2016-07-29 13:44 | PN ---
Physical Exam: SUBJECTIVE: Patient seen and examined. No new events overnight. Pt is non- verbal OBJECTIVE: Vital Signs Period Temp Pulse Resp BP Sys/Santiago Pulse Ox Last 24 Hr 97.8 F-99.2 F 60-80 18-20 135-156/72-96 98 GENERAL: elderly male, in NAD HEENT: EOMI, on trach collar, dry mucous membranes, scopolamine patch behind left ear LUNGS: poor inspiratory effort, but no evidence of tachypnea or crackles/ wheezing HEART: Regular rate and rhythm, S1, S2 ABDOMEN: soft, nontender, + PEG in place EXTREMITIES: 2+ pulses, warm, well-perfused, no edema. Thin extremities NEUROLOGICAL: does not follow along with neuro exam, no purposeful movement, but awake. Non-verbal SKIN: Warm, dry. Left forearm with clean dressing, skin tears, +blister Laboratory Results - last 24 hr 07/28/16 07/29/16 07/29/16 17:22 00:05 06:27 POC Glucometer 123 106 115 Active Medications Generic Name Dose Route Start Last Admin Trade Name Freq PRN Reason Stop Dose Admin Acetaminophen 650 mg 05/26/16 14:23 06/01/16 01:47 Tylenol Oral Solution - GT 650 mg Q4H PRN Administration FEVER Amino Acids 30 ml 06/28/16 10:00 07/29/16 11:08 Prostat Sugar-Free Packet - PO 30 ml DAILY KWAKU Administration Amlodipine Besylate 10 mg 12/30/15 10:00 07/29/16 11:07 Norvasc - GT 10 mg DAILY KWAKU Administration Bacitracin/Polymyxin B Sulfate 1 applic 07/25/16 22:00 07/29/16 11:07 Polysporin Ointment - TP 1 applic BID KWAKU Administration Guaifenesin 10 ml 12/29/15 10:43 07/18/16 09:23 Robitussin Dm - PO 10 ml Q6H PRN Administration COUGH Insulin Aspart 1 vial 01/28/16 16:30 07/29/16 06:29 Novolog Vial Sliding Scale - SQ Not Given BIDI [facility] Protocol Insulin Detemir 14 units 05/05/16 22:00 07/28/16 23:00 Levemir Vial SQ 14 units HS KWAKU Administration Lactobacillus Acidophilus 1 tab 12/30/15 10:00 07/29/16 11:07 Bacid - PO 1 tab DAILY KWAKU Administration Lisinopril 40 mg 12/30/15 10:00 07/29/16 11:06 Prinivil - GT 40 mg DAILY KWAKU Administration Metoprolol Tartrate 150 mg 12/29/15 22:00 07/29/16 11:07 Lopressor - GT 150 mg BID KWAKU Administration Metoprolol Tartrate 5 mg 12/29/15 10:43 Lopressor Injection - IVPB Q6H PRN HYPERTENSION Multivitamins 5 ml 12/30/15 10:00 07/29/16 11:08 Thera-Plus - GT 5 ml DAILY KWAKU Administration Pantoprazole Sodium 40 mg 12/30/15 10:00 07/29/16 11:08 Protonix Packets For Oral Suspension - GT 40 mg DAILY KWAKU Administration Scopolamine HBr 1 patch 05/20/16 15:45 07/28/16 14:51 Transderm-Scop - TD 1 patch Q72H KWAKU Administration ASSESSMENT/PLAN: 75 year old male with PMHx of HTN, IDDM, inguinal hernia who presented to the ED with diverticular bleed s/p right hemicolectomy with 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 Plan: 1. LUE swelling d/t infiltrated IV - Resolving - Fluid filled blister remain - Elevate, apply bacitracin and wrap - No IV abx at this time per ID 2. Anoxic brain injury s/p brainstem CVAs - Mental status unchanged 3. Respiratory failure secondary to anoxic brain injury - Cont trach collar - Duonebs PRN 4. Functional Quadriplegia - Pt moves all extremities but is total care due to ROSAMARIA 5. HTN - BP well-controlled - Continue lisinopril, metoprolol, amlodipine 6. Hydronephrosis, chronic - No new labs 7. Right inguinal hernia - Incidental finding on CT - No surgical intervention at this time 8. Multiple pressure ulcers - Allevyn dressing 9. IDDM - Levemir - BGM, ISS ACHS 10. Nutrition - Glucerna 1.5 @ 60mL/hr + 50mL/hr free water via pump - Prostat daily - Must keep HOB 30 degrees at all times - Wait 20-30 mins to restart TF after administering total care to pt as to avoid aspiration and vomiting 12. DVT prophylaxis: SCDs, no pharmacologic anticoagulation risk of bleeding Visit Type - Emergency Visit Emergency Visit: Yes ED Registration Date: 06/27/15 Care time: The patient presented to the Emergency Department on the above date and was hospitalized for further evaluation of their emergent condition. - New Patient This patient is new to me today: Yes Date on this admission: 07/29/16 - Critical Care Critical Care patient: No
[2016-07-29] MEDS: INSULIN DETEMIR 100 UNITS/ML MDV SQ SCH (23:25)
[2016-07-30] MEDS: METOPROLOL TARTRATE 50 MG TABLET (FP) GT SCH ×4 (00:04→22:12)
[2016-07-30] MEDS: BACITRACIN/POLYMYXIN B SULFATE 15 GM TUBE TP SCH ×2 (00:06→11:32)
[2016-07-30] MEDS: INSULIN SLIDING SCALE (NOVOLOG) 1 VIAL SQ SCH ×2 (07:35→17:46)
--- NOTE | 2016-07-30 08:55 | PN ---
Physical Exam: SUBJECTIVE: Patient seen and examined. Non-verbal. No events overnight OBJECTIVE: Vital Signs Period Temp Pulse Resp BP Sys/Santiago Pulse Ox Last 24 Hr 97.2 F-98.4 F 50-80 20-20 143-152/75-96 96-96 GENERAL: elderly male, in NAD, nonverbal HEENT: EOMI, on trach collar, dry mucous membranes, scopolamine patch behind left ear LUNGS: poor inspiratory effort, but no evidence of tachypnea or crackles/ wheezing HEART: Regular rate and rhythm, S1, S2 ABDOMEN: soft, nontender, + PEG in place EXTREMITIES: 2+ pulses, warm, well-perfused, no edema. Thinm contracted extremities NEUROLOGICAL: does not follow along with neuro exam, no purposeful movement, but awake. SKIN: Warm, dry. Left forearm with clean dressing, skin tears Laboratory Results - last 24 hr 07/29/16 07/30/16 17:16 07:34 POC Glucometer 121 99 Active Medications Generic Name Dose Route Start Last Admin Trade Name Freq PRN Reason Stop Dose Admin Acetaminophen 650 mg 05/26/16 14:23 06/01/16 01:47 Tylenol Oral Solution - GT 650 mg Q4H PRN Administration FEVER Amino Acids 30 ml 06/28/16 10:00 07/29/16 11:08 Prostat Sugar-Free Packet - PO 30 ml DAILY KWAKU Administration Amlodipine Besylate 10 mg 12/30/15 10:00 07/29/16 11:07 Norvasc - GT 10 mg DAILY KWAKU Administration Bacitracin/Polymyxin B Sulfate 1 applic 07/25/16 22:00 07/30/16 00:06 Polysporin Ointment - TP 1 applic BID KWAKU Administration Guaifenesin 10 ml 12/29/15 10:43 07/18/16 09:23 Robitussin Dm - PO 10 ml Q6H PRN Administration COUGH Insulin Aspart 1 vial 01/28/16 16:30 07/30/16 07:35 Novolog Vial Sliding Scale - SQ Not Given BIDI [facility] Protocol Insulin Detemir 14 units 05/05/16 22:00 07/29/16 23:25 Levemir Vial SQ 14 units HS KWAKU Administration Lactobacillus Acidophilus 1 tab 12/30/15 10:00 07/29/16 11:07 Bacid - PO 1 tab DAILY KWAKU Administration Lisinopril 40 mg 12/30/15 10:00 07/29/16 11:06 Prinivil - GT 40 mg DAILY KWAKU Administration Metoprolol Tartrate 150 mg 12/29/15 22:00 07/30/16 00:10 Lopressor - GT Not Given BID KWAKU Metoprolol Tartrate 5 mg 12/29/15 10:43 Lopressor Injection - IVPB Q6H PRN HYPERTENSION Multivitamins 5 ml 12/30/15 10:00 07/29/16 11:08 Thera-Plus - GT 5 ml DAILY KWAKU Administration Pantoprazole Sodium 40 mg 12/30/15 10:00 07/29/16 11:08 Protonix Packets For Oral Suspension - GT 40 mg DAILY KWAKU Administration Scopolamine HBr 1 patch 05/20/16 15:45 07/28/16 14:51 Transderm-Scop - TD 1 patch Q72H KWAKU Administration ASSESSMENT/PLAN: 75 year old male with PMHx of HTN, IDDM, inguinal hernia who presented to the ED with diverticular bleed s/p right hemicolectomy with 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 Plan: 1. LUE swelling d/t infiltrated IV - Fluid filled blister remain - Elevate, apply bacitracin and wrap - No IV abx at this time per ID 2. Anoxic brain injury s/p brainstem CVAs - Mental status unchanged, nonverbal 3. Respiratory failure secondary to anoxic brain injury - Cont trach collar - Duonebs PRN 4. Functional Quadriplegia - Pt moves all extremities but is total care due to ROSAMARIA 5. HTN - BP well-controlled - Continue lisinopril, metoprolol, amlodipine 6. Hydronephrosis, chronic - No new labs 7. Right inguinal hernia - Incidental finding on CT - No surgical intervention at this time 8. Multiple pressure ulcers - Allevyn dressing 9. IDDM - Levemir - BGM, ISS ACHS 10. Nutrition - Glucerna 1.5 @ 60mL/hr + 50mL/hr free water via pump - Prostat daily - Must keep HOB 30 degrees at all times - Wait 20-30 mins to restart TF after administering total care to pt as to avoid aspiration and vomiting 12. DVT prophylaxis: SCDs, no pharmacologic anticoagulation risk of bleeding Visit Type - Emergency Visit Emergency Visit: Yes ED Registration Date: 06/27/15 Care time: The patient presented to the Emergency Department on the above date and was hospitalized for further evaluation of their emergent condition. - New Patient This patient is new to me today: No - Critical Care Critical Care patient: No
[2016-07-30 10:10] LABS: MCH 28.7 pg (25.7-33.7); MCHC 33.5 g/dl (32.0-35.9); MEAN CELL VOLUME 85.8 fl (80-96); PLATELET COUNT 207 K/MM3 (134-434); RDW 15.6 % (11.9-15.9)
[2016-07-30 10:45] LABS: CALCIUM 10.2 mg/dL (8.5-10.1); CREATININE 0.9 mg/dL (0.7-1.3); MAGNESIUM 2.3 mg/dL (1.8-2.4)
[2016-07-30] MEDS: LACTOBACILLUS ACIDOPHILUS 1 EACH TAB (FP) PO SCH (11:31)
[2016-07-30] MEDS: PANTOPRAZOLE SOD 40 MG SUSPENSION PACKET GT SCH (11:31)
[2016-07-30] MEDS: LISINOPRIL 20 MG TABLET (FP) GT SCH (11:32)
[2016-07-30] MEDS: amLODIPine BESYLATE 10 MG TABLET (FP) GT SCH (11:32)
[2016-07-30] MEDS: AMINO ACIDS/PROTEIN HYDROLYS SUGAR-FREE 30 ML PACKET PO SCH (11:33)
[2016-07-30] MEDS: MULTIVITAMINS THERAPEUTIC GT SCH (11:33)
[2016-07-30] MEDS: INSULIN DETEMIR 100 UNITS/ML MDV SQ SCH (22:14)
[2016-07-31] MEDS: BACITRACIN/POLYMYXIN B SULFATE 15 GM TUBE TP SCH ×3 (05:57→21:43)
[2016-07-31 07:15] LABS: MCH 28.5 pg (25.7-33.7); MCHC 32.8 g/dl (32.0-35.9); MEAN CELL VOLUME 86.9 fl (80-96); MEAN PLT VOLUME 8.6 fl (7.5-11.1); PLATELET COUNT 228 K/MM3 (134-434); RDW 15.7 % (11.9-15.9); WHITE BLOOD COUNT 6.8 K/mm3 (4.0-10.0)
[2016-07-31 08:00] LABS: CALCIUM 9.9 mg/dL (8.5-10.1); CREATININE 0.9 mg/dL (0.7-1.3); MAGNESIUM 2.3 mg/dL (1.8-2.4)
[2016-07-31] MEDS: INSULIN SLIDING SCALE (NOVOLOG) 1 VIAL SQ SCH ×2 (08:02→16:45)
[2016-07-31] MEDS: METOPROLOL TARTRATE 50 MG TABLET (FP) GT SCH ×2 (10:46→21:43)
[2016-07-31] MEDS: AMINO ACIDS/PROTEIN HYDROLYS SUGAR-FREE 30 ML PACKET PO SCH (10:46)
[2016-07-31] MEDS: LISINOPRIL 20 MG TABLET (FP) GT SCH (10:46)
[2016-07-31] MEDS: MULTIVITAMINS THERAPEUTIC GT SCH (10:46)
[2016-07-31] MEDS: PANTOPRAZOLE SOD 40 MG SUSPENSION PACKET GT SCH (10:46)
[2016-07-31] MEDS: LACTOBACILLUS ACIDOPHILUS 1 EACH TAB (FP) PO SCH (10:46)
[2016-07-31] MEDS: amLODIPine BESYLATE 10 MG TABLET (FP) GT SCH (10:46)
--- NOTE | 2016-07-31 11:16 | PN ---
Progress Note (short form) - Note Progress Note: Subjective: The patient was seen and examined at the bedside, non-verbal. Remains on vent Current Medications Generic Name Dose Route Start Last Admin Trade Name Freq PRN Reason Stop Dose Admin Acetaminophen 650 mg 05/26/16 14:23 06/01/16 01:47 Tylenol Oral Solution - GT 650 mg Q4H PRN Administration FEVER Amino Acids 30 ml 06/28/16 10:00 07/31/16 10:46 Prostat Sugar-Free Packet - PO 30 ml DAILY KWAKU Administration Amlodipine Besylate 10 mg 12/30/15 10:00 07/31/16 10:46 Norvasc - GT 10 mg DAILY KWAKU Administration Bacitracin/Polymyxin B Sulfate 1 applic 07/25/16 22:00 07/31/16 10:48 Polysporin Ointment - TP 1 applic BID KWAKU Administration Guaifenesin 10 ml 12/29/15 10:43 07/18/16 09:23 Robitussin Dm - PO 10 ml Q6H PRN Administration COUGH Insulin Aspart 1 vial 01/28/16 16:30 07/31/16 08:02 Novolog Vial Sliding Scale - SQ Not Given BIDI [facility] Protocol Insulin Detemir 14 units 05/05/16 22:00 07/30/16 22:14 Levemir Vial SQ 14 units HS KWAKU Administration Lactobacillus Acidophilus 1 tab 12/30/15 10:00 07/31/16 10:46 Bacid - PO 1 tab DAILY KWAKU Administration Lisinopril 40 mg 12/30/15 10:00 07/31/16 10:46 Prinivil - GT 40 mg DAILY KWAKU Administration Metoprolol Tartrate 150 mg 12/29/15 22:00 07/31/16 10:46 Lopressor - GT 150 mg BID KWAKU Administration Metoprolol Tartrate 5 mg 12/29/15 10:43 Lopressor Injection - IVPB Q6H PRN HYPERTENSION Multivitamins 5 ml 12/30/15 10:00 07/31/16 10:46 Thera-Plus - GT 5 ml DAILY KWAKU Administration Pantoprazole Sodium 40 mg 12/30/15 10:00 07/31/16 10:46 Protonix Packets For Oral Suspension - GT 40 mg DAILY KWAKU Administration Scopolamine HBr 1 patch 05/20/16 15:45 07/28/16 14:51 Transderm-Scop - TD 1 patch Q72H KWAKU Administration Objective: Vital Signs Period Temp Pulse Resp BP Sys/Santiago Pulse Ox Last 24 Hr 98.5 F-99.4 F 66-77 18-20 122-165/76-103 100 Physical Exam: General: No acute distress Neuro: Eye tracking to verbal stimulus Pulm: Tach collar, CTA anteriorly CV: RRR, S1S2 Abd: Soft, non-distended. Normoactive bowel sounds. Peg tube c/d/i Ext: Warm, well-perfused. 2+ DP/PT bilaterally CBCD WBC 6.8 K/mm3 (4.0-10.0) 07/31/16 06:15 RBC 3.88 M/mm3 (4.00-5.60) L 07/31/16 06:15 Hgb 11.1 GM/dL (11.7-16.9) L 07/31/16 06:15 Hct 33.7 % (35.4-49) L 07/31/16 06:15 MCV 86.9 fl (80-96) 07/31/16 06:15 MCHC 32.8 g/dl (32.0-35.9) 07/31/16 06:15 RDW 15.7 % (11.9-15.9) 07/31/16 06:15 Plt Count 228 K/MM3 (134-434) 07/31/16 06:15 MPV 8.6 fl (7.5-11.1) 07/31/16 06:15 CMP Sodium 142 mmol/L (136-145) 07/31/16 06:15 Potassium 3.9 mmol/L (3.5-5.1) 07/31/16 06:15 Chloride 105 mmol/L (98-107) 07/31/16 06:15 Carbon Dioxide 32 mmol/L (21-32) 07/31/16 06:15 Anion Gap 5 (8-16) L 07/31/16 06:15 BUN 19 mg/dL (7-18) H 07/31/16 06:15 Creatinine 0.9 mg/dL (0.7-1.3) 07/31/16 06:15 Creat Clearance w eGFR > 60 (>60) 07/24/16 07:00 Random Glucose 119 mg/dL (74-106) H 07/31/16 06:15 Calcium 9.9 mg/dL (8.5-10.1) 07/31/16 06:15 Total Bilirubin 0.8 mg/dL (0.2-1.0) D 07/24/16 07:00 AST 14 U/L (15-37) L 07/24/16 07:00 ALT 25 U/L (12-78) 07/24/16 07:00 Alkaline Phosphatase 99 U/L (45-117) 07/24/16 07:00 Total Protein 8.0 g/dl (6.4-8.2) 07/24/16 07:00 Albumin 3.4 g/dl (3.4-5.0) 07/24/16 07:00 CARDIAC ENZYMES Creatine Kinase 62 IU/L (38-174) 06/28/15 09:35 Troponin I 0.07 ng/ml (0.03-0.5) D 07/09/15 05:00 Assessment: 75 year old male with PMHx of HTN, IDDM, inguinal hernia who presented to the ED with diverticular bleed s/p Righ hemicolectomy with 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 Plan: 1. Anoxic brain injury s/p brainstem CVAs - Mental status unchanged 2. Respiratory failure secondary to anoxic brain injury - Cont trach collar - Duonebs PRN 3. HTN - Continue lisinopril, metoprolol, amlodipine 4. Multiple pressure ulcers - Turn and position q2h 5. IDDM - Continue Levemir at 14u sq qhs - ISS BGM ACHS 6. F/E/N: - 60 ml/hr Glucerna 1.5, 50 ml/hr H20 - Prostat daily 7. Prophylaxis: - SCDs bilaterally - No chemical anticoagulation 2/2 spontaneous gluteal bleed and severe GI bleed - Functional quadriplegia CODE STATUS: DNR
[2016-07-31] MEDS: SCOPOLAMINE HYDROBROMIDE 1 PATCH PATCH.TD72 TD SCH (16:20)
[2016-07-31] MEDS: INSULIN DETEMIR 100 UNITS/ML MDV SQ SCH (21:42)
[2016-08-01] MEDS: INSULIN SLIDING SCALE (NOVOLOG) 1 VIAL SQ SCH ×2 (06:35→17:05)
[2016-08-01] MEDS: amLODIPine BESYLATE 10 MG TABLET (FP) GT SCH (10:49)
[2016-08-01] MEDS: LACTOBACILLUS ACIDOPHILUS 1 EACH TAB (FP) PO SCH (10:49)
[2016-08-01] MEDS: LISINOPRIL 20 MG TABLET (FP) GT SCH (10:49)
[2016-08-01] MEDS: METOPROLOL TARTRATE 50 MG TABLET (FP) GT SCH ×2 (10:49→23:26)
[2016-08-01] MEDS: AMINO ACIDS/PROTEIN HYDROLYS SUGAR-FREE 30 ML PACKET PO SCH (10:50)
[2016-08-01] MEDS: PANTOPRAZOLE SOD 40 MG SUSPENSION PACKET GT SCH (10:50)
[2016-08-01] MEDS: BACITRACIN/POLYMYXIN B SULFATE 15 GM TUBE TP SCH ×2 (10:50→23:26)
[2016-08-01] MEDS: MULTIVITAMINS THERAPEUTIC GT SCH (10:50)
--- NOTE | 2016-08-01 11:33 | PN ---
Progress Note (short form) - Note Progress Note: Subjective: The patient was seen and examined at the bedside, non-verbal. Remains on trach collar Current Medications Generic Name Dose Route Start Last Admin Trade Name Freq PRN Reason Stop Dose Admin Acetaminophen 650 mg 05/26/16 14:23 06/01/16 01:47 Tylenol Oral Solution - GT 650 mg Q4H PRN Administration FEVER Amino Acids 30 ml 06/28/16 10:00 08/01/16 10:50 Prostat Sugar-Free Packet - PO 30 ml DAILY KWAKU Administration Amlodipine Besylate 10 mg 12/30/15 10:00 08/01/16 10:49 Norvasc - GT 10 mg DAILY KWAKU Administration Bacitracin/Polymyxin B Sulfate 1 applic 07/25/16 22:00 08/01/16 10:50 Polysporin Ointment - TP 1 applic BID KWAKU Administration Guaifenesin 10 ml 12/29/15 10:43 07/18/16 09:23 Robitussin Dm - PO 10 ml Q6H PRN Administration COUGH Insulin Aspart 1 vial 01/28/16 16:30 08/01/16 06:35 Novolog Vial Sliding Scale - SQ Not Given BIDI [facility] Protocol Insulin Detemir 14 units 05/05/16 22:00 07/31/16 21:42 Levemir Vial SQ 14 units HS KWAKU Administration Lactobacillus Acidophilus 1 tab 12/30/15 10:00 08/01/16 10:49 Bacid - PO 1 tab DAILY KWAKU Administration Lisinopril 40 mg 12/30/15 10:00 08/01/16 10:49 Prinivil - GT 40 mg DAILY KWAKU Administration Metoprolol Tartrate 150 mg 12/29/15 22:00 08/01/16 10:49 Lopressor - GT 150 mg BID KWAKU Administration Metoprolol Tartrate 5 mg 12/29/15 10:43 Lopressor Injection - IVPB Q6H PRN HYPERTENSION Multivitamins 5 ml 12/30/15 10:00 08/01/16 10:50 Thera-Plus - GT 5 ml DAILY KWAKU Administration Pantoprazole Sodium 40 mg 12/30/15 10:00 08/01/16 10:50 Protonix Packets For Oral Suspension - GT 40 mg DAILY KWAKU Administration Scopolamine HBr 1 patch 05/20/16 15:45 07/31/16 16:20 Transderm-Scop - TD 1 patch Q72H KWAKU Administration Objective: Vital Signs Period Temp Pulse Resp BP Sys/Santiago Pulse Ox Last 24 Hr 98.8 F-99.5 F 64-74 20-20 109-155/69-91 98-98 Physical Exam: General: No acute distress Neuro: Eye tracking to verbal stimulus Pulm: Tach collar, CTA anteriorly CV: RRR, S1S2 Abd: Soft, non-distended. Normoactive bowel sounds. Peg tube c/d/i Ext: Warm, well-perfused. 2+ DP/PT bilaterally CBCD WBC 6.8 K/mm3 (4.0-10.0) 07/31/16 06:15 RBC 3.88 M/mm3 (4.00-5.60) L 07/31/16 06:15 Hgb 11.1 GM/dL (11.7-16.9) L 07/31/16 06:15 Hct 33.7 % (35.4-49) L 07/31/16 06:15 MCV 86.9 fl (80-96) 07/31/16 06:15 MCHC 32.8 g/dl (32.0-35.9) 07/31/16 06:15 RDW 15.7 % (11.9-15.9) 07/31/16 06:15 Plt Count 228 K/MM3 (134-434) 07/31/16 06:15 MPV 8.6 fl (7.5-11.1) 07/31/16 06:15 CMP Sodium 142 mmol/L (136-145) 07/31/16 06:15 Potassium 3.9 mmol/L (3.5-5.1) 07/31/16 06:15 Chloride 105 mmol/L (98-107) 07/31/16 06:15 Carbon Dioxide 32 mmol/L (21-32) 07/31/16 06:15 Anion Gap 5 (8-16) L 07/31/16 06:15 BUN 19 mg/dL (7-18) H 07/31/16 06:15 Creatinine 0.9 mg/dL (0.7-1.3) 07/31/16 06:15 Creat Clearance w eGFR > 60 (>60) 07/24/16 07:00 Random Glucose 119 mg/dL (74-106) H 07/31/16 06:15 Calcium 9.9 mg/dL (8.5-10.1) 07/31/16 06:15 Total Bilirubin 0.8 mg/dL (0.2-1.0) D 07/24/16 07:00 AST 14 U/L (15-37) L 07/24/16 07:00 ALT 25 U/L (12-78) 07/24/16 07:00 Alkaline Phosphatase 99 U/L (45-117) 07/24/16 07:00 Total Protein 8.0 g/dl (6.4-8.2) 07/24/16 07:00 Albumin 3.4 g/dl (3.4-5.0) 07/24/16 07:00 CARDIAC ENZYMES Creatine Kinase 62 IU/L (38-174) 06/28/15 09:35 Troponin I 0.07 ng/ml (0.03-0.5) D 07/09/15 05:00 Assessment: 75 year old male with PMHx of HTN, IDDM, inguinal hernia who presented to the ED with diverticular bleed s/p Righ hemicolectomy with 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 Plan: 1. Anoxic brain injury s/p brainstem CVAs - Mental status unchanged 2. Respiratory failure secondary to anoxic brain injury - Cont trach collar - Duonebs PRN 3. HTN - Continue lisinopril, metoprolol, amlodipine 4. Multiple pressure ulcers - Turn and position q2h 5. IDDM - Continue Levemir at 14u sq qhs - ISS BGM ACHS 6. F/E/N: - 60 ml/hr Glucerna 1.5, 50 ml/hr H20 - Prostat daily 7. Prophylaxis: - SCDs bilaterally - No chemical anticoagulation 2/2 spontaneous gluteal bleed and severe GI bleed - Functional quadriplegia CODE STATUS: DNR
--- NOTE | 2016-08-01 17:20 | EKG ---
Test Reason : Blood Pressure : / mmHG Vent. Rate : 060 BPM Atrial Rate : 060 BPM P-R Int : 184 ms QRS Dur : 092 ms QT Int : 444 ms P-R-T Axes : 047 -20 -03 degrees QTc Int : 444 ms SINUS RHYTHM WITH MARKED SINUS ARRHYTHMIA VOLTAGE CRITERIA FOR LEFT VENTRICULAR HYPERTROPHY ABNORMAL ECG WHEN COMPARED WITH ECG OF 03-JUL-2016 10:30, NO SIGNIFICANT CHANGE WAS FOUND Confirmed by LEIF HERRERA, MONI ([id number]) on 08/01/2016 5:20:32 PM Referred By: JANELL STOKES Overread By: MONI YADAV MD
[2016-08-01] MEDS: INSULIN DETEMIR 100 UNITS/ML MDV SQ SCH (23:25)
[2016-08-02] MEDS: INSULIN SLIDING SCALE (NOVOLOG) 1 VIAL SQ SCH ×2 (06:52→18:03)
[2016-08-02] MEDS: LACTOBACILLUS ACIDOPHILUS 1 EACH TAB (FP) PO SCH (10:38)
[2016-08-02] MEDS: PANTOPRAZOLE SOD 40 MG SUSPENSION PACKET GT SCH (10:38)
[2016-08-02] MEDS: guaiFENesin/D-METHORPHAN HB 10 ML UNIT-DOSE CUPS PO PRN (10:38)
[2016-08-02] MEDS: LISINOPRIL 20 MG TABLET (FP) GT SCH (10:39)
[2016-08-02] MEDS: BACITRACIN/POLYMYXIN B SULFATE 15 GM TUBE TP SCH ×2 (10:39→23:13)
[2016-08-02] MEDS: AMINO ACIDS/PROTEIN HYDROLYS SUGAR-FREE 30 ML PACKET PO SCH (10:39)
[2016-08-02] MEDS: amLODIPine BESYLATE 10 MG TABLET (FP) GT SCH (10:39)
[2016-08-02] MEDS: MULTIVITAMINS THERAPEUTIC GT SCH (10:39)
--- NOTE | 2016-08-02 11:02 | PN ---
Progress Note (short form) - Note Progress Note: Subjective: The patient was seen and examined at the bedside, non-verbal. Remains on trach collar F/u ENT for trach change Current Medications Generic Name Dose Route Start Last Admin Trade Name Freq PRN Reason Stop Dose Admin Acetaminophen 650 mg 05/26/16 14:23 06/01/16 01:47 Tylenol Oral Solution - GT 650 mg Q4H PRN Administration FEVER Amino Acids 30 ml 06/28/16 10:00 08/02/16 10:39 Prostat Sugar-Free Packet - PO 30 ml DAILY KWAKU Administration Amlodipine Besylate 10 mg 12/30/15 10:00 08/02/16 10:39 Norvasc - GT 10 mg DAILY KWAKU Administration Bacitracin/Polymyxin B Sulfate 1 applic 07/25/16 22:00 08/02/16 10:39 Polysporin Ointment - TP 1 applic BID KWAKU Administration Guaifenesin 10 ml 12/29/15 10:43 08/02/16 10:38 Robitussin Dm - PO 10 ml Q6H PRN Administration COUGH Insulin Aspart 1 vial 01/28/16 16:30 08/02/16 06:52 Novolog Vial Sliding Scale - SQ Not Given BIDI [facility] Protocol Insulin Detemir 14 units 05/05/16 22:00 08/01/16 23:25 Levemir Vial SQ 14 units HS KWAKU Administration Lactobacillus Acidophilus 1 tab 12/30/15 10:00 08/02/16 10:38 Bacid - PO 1 tab DAILY KWAKU Administration Lisinopril 40 mg 12/30/15 10:00 08/02/16 10:39 Prinivil - GT 40 mg DAILY KWAKU Administration Metoprolol Tartrate 150 mg 12/29/15 22:00 08/01/16 23:26 Lopressor - GT 150 mg BID KWAKU Administration Metoprolol Tartrate 5 mg 12/29/15 10:43 Lopressor Injection - IVPB Q6H PRN HYPERTENSION Multivitamins 5 ml 12/30/15 10:00 08/02/16 10:39 Thera-Plus - GT 5 ml DAILY KWAKU Administration Pantoprazole Sodium 40 mg 12/30/15 10:00 08/02/16 10:38 Protonix Packets For Oral Suspension - GT 40 mg DAILY KWAKU Administration Scopolamine HBr 1 patch 05/20/16 15:45 07/31/16 16:20 Transderm-Scop - TD 1 patch Q72H KWAKU Administration Objective: Vital Signs Period Temp Pulse Resp BP Sys/Santiago Pulse Ox Last 24 Hr 97.8 F-98.9 F 49-109 18-20 125-180/57-97 98 Physical Exam: General: No acute distress Neuro: Eye tracking to verbal stimulus Pulm: Tach collar, CTA anteriorly CV: RRR, S1S2 Abd: Soft, non-distended. Normoactive bowel sounds. Peg tube c/d/i Ext: Warm, well-perfused. 2+ DP/PT bilaterally CBCD WBC 6.8 K/mm3 (4.0-10.0) 07/31/16 06:15 RBC 3.88 M/mm3 (4.00-5.60) L 07/31/16 06:15 Hgb 11.1 GM/dL (11.7-16.9) L 07/31/16 06:15 Hct 33.7 % (35.4-49) L 07/31/16 06:15 MCV 86.9 fl (80-96) 07/31/16 06:15 MCHC 32.8 g/dl (32.0-35.9) 07/31/16 06:15 RDW 15.7 % (11.9-15.9) 07/31/16 06:15 Plt Count 228 K/MM3 (134-434) 07/31/16 06:15 MPV 8.6 fl (7.5-11.1) 07/31/16 06:15 CMP Sodium 142 mmol/L (136-145) 07/31/16 06:15 Potassium 3.9 mmol/L (3.5-5.1) 07/31/16 06:15 Chloride 105 mmol/L (98-107) 07/31/16 06:15 Carbon Dioxide 32 mmol/L (21-32) 07/31/16 06:15 Anion Gap 5 (8-16) L 07/31/16 06:15 BUN 19 mg/dL (7-18) H 07/31/16 06:15 Creatinine 0.9 mg/dL (0.7-1.3) 07/31/16 06:15 Creat Clearance w eGFR > 60 (>60) 07/24/16 07:00 Random Glucose 119 mg/dL (74-106) H 07/31/16 06:15 Calcium 9.9 mg/dL (8.5-10.1) 07/31/16 06:15 Total Bilirubin 0.8 mg/dL (0.2-1.0) D 07/24/16 07:00 AST 14 U/L (15-37) L 07/24/16 07:00 ALT 25 U/L (12-78) 07/24/16 07:00 Alkaline Phosphatase 99 U/L (45-117) 07/24/16 07:00 Total Protein 8.0 g/dl (6.4-8.2) 07/24/16 07:00 Albumin 3.4 g/dl (3.4-5.0) 07/24/16 07:00 CARDIAC ENZYMES Creatine Kinase 62 IU/L (38-174) 06/28/15 09:35 Troponin I 0.07 ng/ml (0.03-0.5) D 07/09/15 05:00 Assessment: 75 year old male with PMHx of HTN, IDDM, inguinal hernia who presented to the ED with diverticular bleed s/p Righ hemicolectomy with 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 Plan: 1. Anoxic brain injury s/p brainstem CVAs - Mental status unchanged 2. Respiratory failure secondary to anoxic brain injury - Cont trach collar (consult ENT to change trach collar. Attempt to wean from trach to nasal cannula yesterday, however we do not have the button for his shiley, will attempt after trach changed) - Duonebs PRN 3. HTN - Hold metoprolol due to periods of bradycardia - EKG with marked sinus arrhythmia, no significant change found when compared to prior EKG - Continue lisinopril, amlodipine 4. Multiple pressure ulcers - Turn and position q2h 5. IDDM - Continue Levemir at 14u sq qhs - ISS BGM ACHS 6. F/E/N: - 60 ml/hr Glucerna 1.5, 50 ml/hr H20 - Prostat daily 7. Prophylaxis: - SCDs bilaterally - No chemical anticoagulation 2/2 spontaneous gluteal bleed and severe GI bleed - Functional quadriplegia CODE STATUS: DNR
--- NOTE | 2016-08-02 19:05 | CONSULT ---
Consult Consult Specialty:: ENT Referred by:: Pam Silverman NP Reason for Consultation:: tracheotomy tube change - History of Present Illness History of Present Illness: 76 yo M with complex medical hx. Per nursing staff, pt has been in [facility] for over one year. Legal status and lack of insurance have prevented pt's transfer to a [facility] facility (likely a more appropriate level of care for his present status). Pt does get periodic fevers and gets treated with antibiotics. Had CVA and anoxic brain injury, is s/p tracheotomy and PEG. was on ventilator, but off for many months. has been stable on trach collar with O2. Chart review shows pt had a percutaneous tracheotomy performed by Dr. Leal on 07-23-2015. a #8 Shiley percutaneous tube was placed. According to staff, this tube has not been changed since insertion. this is a cuffed tube, and the cuff is presently not inflated. 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 - Alcohol/Substance Use Hx Alcohol Use: No - Smoking History Smoking history: Never smoked Have you smoked in the past 12 months: No Aproximately how many cigarettes per day: 0 Home Medications - Allergies Allergies/Adverse Reactions: Allergies Allergy/AdvReac Type Severity Reaction Status Date / Time No Known Allergies Allergy Verified 06/26/15 21:31 - Home Medications Home Medications: Ambulatory Orders Amino Acids/Protein Hydrolys [Prostat Sugar-Free Packet -] 30 ml GT DAILY packet 08/09/15 Amlodipine Besylate [Norvasc -] 10 mg GT DAILY tablet 08/09/15 Chlorhexidine Gluconate [Peridex -] 15 ml MM BID cup 08/09/15 Insulin (Levemir) [Levemir Flexpen -] 25 units SQ HS pen 08/09/15 Insulin (Novolog) [Novolog Flexpen -] 3 units SQ Q6HPO pen 08/09/15 Insulin Sliding Scale [Novolog Vial Sliding Scale -] 0 units SQ Q6HPO pen 08/09 Lisinopril [Prinivil] 20 mg GT DAILY tablet 08/09/15 Metoprolol Tartrate Injection [Lopressor Injection -] 5 mg IVPB Q6H PRN #0 vial 08/09/15 Metoprolol Tartrate [Lopressor -] 100 mg GT BID tablet 08/09/15 Ondansetron Injection [Zofran Injection] 4 mg IVPB Q6H PRN #0 vial 08/09/15 Pantoprazole Suspension [Protonix Packets For Oral Suspension -] 40 mg GT DAILY packet 08/09/15 Vancomycin Oral Solution 125 mg GT Q6HPO ml 08/09/15 Family Disease History - Family Disease History Other Family History: non-contributory Physical Exam-ENT Vital Signs: Vital Signs Temperature 99.5 F 08/02/16 14:00 Pulse Rate 80 08/02/16 17:55 Respiratory Rate 28 H 08/02/16 14:00 Blood Pressure 179/100 08/02/16 14:00 O2 Sat by Pulse Oximetry (%) 95 08/02/16 17:55 Constitutional: Yes: No Distress Head: Yes: WNL Face: Yes: WNL Eyes: Yes: WNL Ear Canal: Yes: WNL Neck: Yes: Other (#8 Shiley percutaneous tracheotomy tube in place, secure) Imaging - Results Chest X-ray: Report Reviewed Problem List - Problems (1) Tracheostomy dependent Assessment/Plan: pt has had tracheotomy in place for over one year original tube in place not ventilator dependant anymore stable on trach collar Tracheotomy tube change recommended #8 Portex tube selected and prepared with pulse oximeter on tube removed after confirming cuff was deflated. sl traumatic removal as significant granulation tissue seen at stoma as soon as tube removed. pt developed oozing of blood. There was no established tract present. Insertion of #8 Portex tube attempted but could not be passed despite significant pressure and direction of tube tip into area of air bubbling from contracted stoma, multiple attempts. Pt had good air movement via mouth and had some vocalization, NO stridor. After determining that #8 Portex tube could not be passed, a #6 cuffed Portex tube was placed, and secured. good airflow present and O2 saturation ~95%. Recommend: continue trach care, trach collar for humidification. There was collapse of tube tract after removal of the percutaneous tube. Since this tube was placed percutaneously, it is possible that pt positioning or phase of respiratory cycle at time of needle passage had tissue planes in a particular alignment, which was not maintained after tube removal. There was definitely not a patent tube tract to easily replace a similar sized tracheotomy tube. Jon Melo MD FACS Code(s): Z93.0 - TRACHEOSTOMY STATUS
[2016-08-02] MEDS: INSULIN DETEMIR 100 UNITS/ML MDV SQ SCH (23:12)
[2016-08-02] MEDS: METOPROLOL TARTRATE 50 MG TABLET (FP) GT SCH (23:13)
[2016-08-03] MEDS: INSULIN SLIDING SCALE (NOVOLOG) 1 VIAL SQ SCH ×2 (06:14→17:52)
[2016-08-03] MEDS: BACITRACIN/POLYMYXIN B SULFATE 15 GM TUBE TP SCH ×2 (10:00→21:32)
[2016-08-03] MEDS: METOPROLOL TARTRATE 50 MG TABLET (FP) GT SCH ×2 (10:40→21:31)
[2016-08-03] MEDS: LACTOBACILLUS ACIDOPHILUS 1 EACH TAB (FP) PO SCH (10:41)
[2016-08-03] MEDS: LISINOPRIL 20 MG TABLET (FP) GT SCH (10:41)
[2016-08-03] MEDS: amLODIPine BESYLATE 10 MG TABLET (FP) GT SCH (10:41)
[2016-08-03] MEDS: PANTOPRAZOLE SOD 40 MG SUSPENSION PACKET GT SCH (10:41)
[2016-08-03] MEDS: MULTIVITAMINS THERAPEUTIC GT SCH (10:42)
[2016-08-03] MEDS: AMINO ACIDS/PROTEIN HYDROLYS SUGAR-FREE 30 ML PACKET PO SCH (10:43)
--- NOTE | 2016-08-03 12:48 | PN ---
Progress Note (short form) - Note Progress Note: ENT pt awake, eyes open breathing comfortably, yawning, no stridor or respiratory distress tracheotomy tube in place, secure, functioning well. minimal blood tinged secretions from tube Impression: stable trach status s/p trach tube change (initial trach tube had been in place for over one year) tolerating smaller tube size well. Recommend: continue trach tube care, trach collar Jon Melo MD FACS Problem List - Problems (1) Tracheostomy dependent Code(s): Z93.0 - TRACHEOSTOMY STATUS
--- NOTE | 2016-08-03 13:15 | PN ---
Progress Note (short form) - Note Progress Note: Hospitalist Progress Note This patient presented to the emergency department and was admitted for further evaluation of their emergent condition. SUBJECTIVE: Patient seen and examined. Patient is nonverbal. Awake, Not following commands. OBJECTIVE: Vital Signs Period Temp Pulse Resp BP Sys/Santiago Pulse Ox Last 24 Hr 98.0 F-99.5 F 60-102 16-28 134-179/73-100 95-97 General: No acute distress Neuro: Eye tracking to verbal stimulus Pulm: Tach with some mild bleeding s/p exchange, CTA anteriorly, + secretions CV: RRR, S1S2 Abd: Soft, non-distended. Normoactive bowel sounds. Peg tube c/d/i Ext: Warm, well-perfused. 2+ DP/PT bilaterally CBCD WBC 6.8 K/mm3 (4.0-10.0) 07/31/16 06:15 RBC 3.88 M/mm3 (4.00-5.60) L 07/31/16 06:15 Hgb 11.1 GM/dL (11.7-16.9) L 07/31/16 06:15 Hct 33.7 % (35.4-49) L 07/31/16 06:15 MCV 86.9 fl (80-96) 07/31/16 06:15 MCHC 32.8 g/dl (32.0-35.9) 07/31/16 06:15 RDW 15.7 % (11.9-15.9) 07/31/16 06:15 Plt Count 228 K/MM3 (134-434) 07/31/16 06:15 MPV 8.6 fl (7.5-11.1) 07/31/16 06:15 CMP Sodium 142 mmol/L (136-145) 07/31/16 06:15 Potassium 3.9 mmol/L (3.5-5.1) 07/31/16 06:15 Chloride 105 mmol/L (98-107) 07/31/16 06:15 Carbon Dioxide 32 mmol/L (21-32) 07/31/16 06:15 Anion Gap 5 (8-16) L 07/31/16 06:15 BUN 19 mg/dL (7-18) H 07/31/16 06:15 Creatinine 0.9 mg/dL (0.7-1.3) 07/31/16 06:15 Creat Clearance w eGFR > 60 (>60) 07/24/16 07:00 Calcium 9.9 mg/dL (8.5-10.1) 07/31/16 06:15 Total Bilirubin 0.8 mg/dL (0.2-1.0) D 07/24/16 07:00 AST 14 U/L (15-37) L 07/24/16 07:00 ALT 25 U/L (12-78) 07/24/16 07:00 Alkaline Phosphatase 99 U/L (45-117) 07/24/16 07:00 Total Protein 8.0 g/dl (6.4-8.2) 07/24/16 07:00 Albumin 3.4 g/dl (3.4-5.0) 07/24/16 07:00 Current Medications Generic Name Dose Route Start Last Admin Trade Name Freq PRN Reason Stop Dose Admin Acetaminophen 650 mg 05/26/16 14:23 06/01/16 01:47 Tylenol Oral Solution - GT 650 mg Q4H PRN Administration FEVER Amino Acids 30 ml 06/28/16 10:00 08/03/16 10:43 Prostat Sugar-Free Packet - PO 30 ml DAILY KWAKU Administration Amlodipine Besylate 10 mg 12/30/15 10:00 08/03/16 10:41 Norvasc - GT 10 mg DAILY KWAKU Administration Bacitracin/Polymyxin B Sulfate 1 applic 07/25/16 22:00 08/02/16 23:13 Polysporin Ointment - TP 1 applic BID KWAKU Administration Guaifenesin 10 ml 12/29/15 10:43 08/02/16 10:38 Robitussin Dm - PO 10 ml Q6H PRN Administration COUGH Insulin Aspart 1 vial 01/28/16 16:30 08/03/16 06:14 Novolog Vial Sliding Scale - SQ Not Given BIDI [facility] Protocol Insulin Detemir 14 units 05/05/16 22:00 08/02/16 23:12 Levemir Vial SQ 14 units HS KWAKU Administration Lactobacillus Acidophilus 1 tab 12/30/15 10:00 08/03/16 10:41 Bacid - PO 1 tab DAILY KWAKU Administration Lisinopril 40 mg 12/30/15 10:00 08/03/16 10:41 Prinivil - GT 40 mg DAILY KWAKU Administration Metoprolol Tartrate 150 mg 12/29/15 22:00 08/03/16 10:40 Lopressor - GT 150 mg BID KWAKU Administration Metoprolol Tartrate 5 mg 12/29/15 10:43 Lopressor Injection - IVPB Q6H PRN HYPERTENSION Multivitamins 5 ml 12/30/15 10:00 08/03/16 10:42 Thera-Plus - GT 5 ml DAILY KWAKU Administration Pantoprazole Sodium 40 mg 12/30/15 10:00 08/03/16 10:41 Protonix Packets For Oral Suspension - GT 40 mg DAILY KWAKU Administration Scopolamine HBr 1 patch 05/20/16 15:45 07/31/16 16:20 Transderm-Scop - TD 1 patch Q72H KWAKU Administration ASSESSMENT/PLAN:75 year old male with PMHx of HTN, IDDM, inguinal hernia who presented to the ED with diverticular bleed s/p Righ hemicolectomy with 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 Anoxic brain injury s/p brainstem CVAs - Mental status unchanged, awake Respiratory failure secondary to anoxic brain injury - Cont trach, changed by ENT on 08/02/16 - Duonebs PRN - suctioning prn - will attempt to wean off trach to nasal cannula once bleeding near trach resolves Vomiting - Resolved - Tube feeds resumed - Chest X-ray reviewed, per ID will observe off abx - Monitor for fevers HTN - Continue lisinopril, amlodipine Multiple pressure ulcers - Turn and position q2h IDDM - Continue Levemir sq qhs - ISS BGM ACHS F/E/N: - 60 ml/hr Glucerna 1.5, 50 ml/hr H20 - Prostat daily Prophylaxis: - SCDs bilaterally - No chemical anticoagulation 2/2 spontaneous gluteal bleed and severe GI bleed - PT -Functional quadriplegia
[2016-08-03] MEDS: SCOPOLAMINE HYDROBROMIDE 1 PATCH PATCH.TD72 TD SCH (18:04)
[2016-08-03] MEDS: INSULIN DETEMIR 100 UNITS/ML MDV SQ SCH (21:31)
[2016-08-04] MEDS: INSULIN SLIDING SCALE (NOVOLOG) 1 VIAL SQ SCH ×2 (06:01→17:13)
[2016-08-04] MEDS: LACTOBACILLUS ACIDOPHILUS 1 EACH TAB (FP) PO SCH ×2 (11:09→11:11)
[2016-08-04] MEDS: amLODIPine BESYLATE 10 MG TABLET (FP) GT SCH (11:09)
[2016-08-04] MEDS: PANTOPRAZOLE SOD 40 MG SUSPENSION PACKET GT SCH (11:10)
[2016-08-04] MEDS: AMINO ACIDS/PROTEIN HYDROLYS SUGAR-FREE 30 ML PACKET PO SCH (11:10)
[2016-08-04] MEDS: LISINOPRIL 20 MG TABLET (FP) GT SCH (11:10)
[2016-08-04] MEDS: MULTIVITAMINS THERAPEUTIC GT SCH (11:20)
[2016-08-04] MEDS: METOPROLOL TARTRATE 50 MG TABLET (FP) GT SCH ×2 (11:20→23:03)
[2016-08-04] MEDS: BACITRACIN/POLYMYXIN B SULFATE 15 GM TUBE TP SCH ×2 (11:20→23:03)
--- NOTE | 2016-08-04 15:38 | PN ---
Physical Exam: SUBJECTIVE: Patient seen and examined. No changes. Trace bloody secretions OBJECTIVE: Vital Signs Period Temp Pulse Resp BP Sys/Santiago Pulse Ox Last 24 Hr 98.9 F-99.2 F 70-80 16-20 136-160/77-90 95-99 PE Neuro: non verbal, awake, non purposeful movement HEENT: MM, no thrush Pulm: Trach collar CV: s1 s2 rrr no mrg Abd: PEG tube, s nt nd +bs ExT: warm, no edema, some degree of ankle drop Laboratory Results - last 24 hr 08/03/16 08/04/16 17:15 05:32 POC Glucometer 85 111 Active Medications Generic Name Dose Route Start Last Admin Trade Name Freq PRN Reason Stop Dose Admin Acetaminophen 650 mg 05/26/16 14:23 06/01/16 01:47 Tylenol Oral Solution - GT 650 mg Q4H PRN Administration FEVER Amino Acids 30 ml 06/28/16 10:00 08/04/16 11:10 Prostat Sugar-Free Packet - PO 30 ml DAILY KWAKU Administration Amlodipine Besylate 10 mg 12/30/15 10:00 08/04/16 11:09 Norvasc - GT 10 mg DAILY KWAKU Administration Bacitracin/Polymyxin B Sulfate 1 applic 07/25/16 22:00 08/04/16 11:20 Polysporin Ointment - TP 1 applic BID KWAKU Administration Guaifenesin 10 ml 12/29/15 10:43 08/02/16 10:38 Robitussin Dm - PO 10 ml Q6H PRN Administration COUGH Insulin Aspart 1 vial 01/28/16 16:30 08/04/16 06:01 Novolog Vial Sliding Scale - SQ Not Given BIDI [facility] Protocol Insulin Detemir 14 units 05/05/16 22:00 08/03/16 21:31 Levemir Vial SQ 14 units HS KWAKU Administration Lactobacillus Acidophilus 1 tab 12/30/15 10:00 08/04/16 11:11 Bacid - PO 1 tab DAILY KWAKU Administration Lisinopril 40 mg 12/30/15 10:00 08/04/16 11:10 Prinivil - GT 40 mg DAILY KWAKU Administration Metoprolol Tartrate 150 mg 12/29/15 22:00 08/04/16 11:20 Lopressor - GT 150 mg BID KWAKU Administration Metoprolol Tartrate 5 mg 12/29/15 10:43 Lopressor Injection - IVPB Q6H PRN HYPERTENSION Multivitamins 5 ml 12/30/15 10:00 08/04/16 11:20 Thera-Plus - GT 5 ml DAILY KWAKU Administration Pantoprazole Sodium 40 mg 12/30/15 10:00 08/04/16 11:10 Protonix Packets For Oral Suspension - GT 40 mg DAILY KWAKU Administration Scopolamine HBr 1 patch 05/20/16 15:45 08/03/16 18:04 Transderm-Scop - TD 1 patch Q72H KWAKU Administration Assessment: 75 year old male with PMHx of HTN, IDDM, inguinal hernia who presented to the ED with diverticular bleed s/p Righ hemicolectomy with 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 Plan: Anoxic brain injury s/p brainstem CVAs - Mental status unchanged Respiratory failure secondary to anoxic brain injury - Cont trach, changed by ENT on 08/02/16 - Duonebs PRN - D/w RT will attempt to plug trach and wean to NC once bleeding subsides Functional Quadriplegia - Pt moves all extremities but is total care d/t ROSAMARIA HTN - BP well-controlled - Continue lisinopril, metoprolol, amlodipine Hydronephrosis, chronic - Renal function stable Right inguinal hernia - Incidental finding on CT - No surgical intervention at this time Multiple pressure ulcers - Allevyn dressing DDM - Levemir - BGM, ISS ACHS Nutrition - Glucerna 1.5 @ 60mL/hr + 50mL/hr free water via pump - Prostat daily - Must keep HOB 30 degrees at all times - Wait 20-30 mins to restart TF after administering total care to pt as to avoid aspiration and vomiting DVT prophylaxis: SCDs, no chemical anticoagulation risk of bleeding Visit Type - Emergency Visit Emergency Visit: Yes ED Registration Date: 06/27/15 Care time: The patient presented to the Emergency Department on the above date and was hospitalized for further evaluation of their emergent condition. - New Patient This patient is new to me today: No - Critical Care Critical Care patient: No avoid aspiration and vomiting 12. DVT prophylaxis: SCDs, no chemical anticoagulation risk of bleeding
[2016-08-04] MEDS: INSULIN DETEMIR 100 UNITS/ML MDV SQ SCH (23:02)
[2016-08-05] MEDS: INSULIN SLIDING SCALE (NOVOLOG) 1 VIAL SQ SCH ×2 (06:15→16:37)
[2016-08-05] MEDS: LACTOBACILLUS ACIDOPHILUS 1 EACH TAB (FP) PO SCH (11:55)
[2016-08-05] MEDS: amLODIPine BESYLATE 10 MG TABLET (FP) GT SCH (11:55)
[2016-08-05] MEDS: BACITRACIN/POLYMYXIN B SULFATE 15 GM TUBE TP SCH (11:55)
[2016-08-05] MEDS: PANTOPRAZOLE SOD 40 MG SUSPENSION PACKET GT SCH (11:56)
[2016-08-05] MEDS: AMINO ACIDS/PROTEIN HYDROLYS SUGAR-FREE 30 ML PACKET PO SCH (11:56)
[2016-08-05] MEDS: MULTIVITAMINS THERAPEUTIC GT SCH (11:56)
[2016-08-05] MEDS: LISINOPRIL 20 MG TABLET (FP) GT SCH (11:56)
[2016-08-05] MEDS: METOPROLOL TARTRATE 50 MG TABLET (FP) GT SCH ×2 (11:58→23:13)
--- NOTE | 2016-08-05 13:25 | PN ---
Physical Exam: SUBJECTIVE: Patient seen and examined. OBJECTIVE: Vital Signs Period Temp Pulse Resp BP Sys/Santiago Pulse Ox Last 24 Hr 97.6 F-99.5 F 58-90 18-20 128-150/74-85 95-97 GENERAL/NEURO: Eyes open. Non-verbal. Does not follow commands. Non-purposeful movement. HEAD: Normal with no signs of trauma. Trach collar. EYES: PERRL, extraocular movements intact, sclera anicteric, conjunctiva clear. No ptosis. ENT: Ears normal, nares patent, oropharynx clear without exudates, moist mucous membranes. LUNGS: CTA; on trach collar; no wheezing, no rhonchi, no accessory muscle use. HEART: Regular rate and rhythm, S1, S2 without murmur, rub or gallop. ABDOMEN: Soft, nontender, nondistended, normoactive bowel sounds, no guarding, no rebound, no hepatosplenomegaly, no masses. PEG tube. EXTREMITIES: 2+ pulses, warm, well-perfused, no edema. Laboratory Results - last 24 hr 08/04/16 08/05/16 17:03 06:09 POC Glucometer 130 112 CBCD WBC 6.8 K/mm3 (4.0-10.0) 07/31/16 06:15 RBC 3.88 M/mm3 (4.00-5.60) L 07/31/16 06:15 Hgb 11.1 GM/dL (11.7-16.9) L 07/31/16 06:15 Hct 33.7 % (35.4-49) L 07/31/16 06:15 MCV 86.9 fl (80-96) 07/31/16 06:15 MCHC 32.8 g/dl (32.0-35.9) 07/31/16 06:15 RDW 15.7 % (11.9-15.9) 07/31/16 06:15 Plt Count 228 K/MM3 (134-434) 07/31/16 06:15 MPV 8.6 fl (7.5-11.1) 07/31/16 06:15 CMP Sodium 142 mmol/L (136-145) 07/31/16 06:15 Potassium 3.9 mmol/L (3.5-5.1) 07/31/16 06:15 Chloride 105 mmol/L (98-107) 07/31/16 06:15 Carbon Dioxide 32 mmol/L (21-32) 07/31/16 06:15 Anion Gap 5 (8-16) L 07/31/16 06:15 BUN 19 mg/dL (7-18) H 07/31/16 06:15 Creatinine 0.9 mg/dL (0.7-1.3) 07/31/16 06:15 Creat Clearance w eGFR > 60 (>60) 07/24/16 07:00 Calcium 9.9 mg/dL (8.5-10.1) 07/31/16 06:15 Total Bilirubin 0.8 mg/dL (0.2-1.0) D 07/24/16 07:00 AST 14 U/L (15-37) L 07/24/16 07:00 ALT 25 U/L (12-78) 07/24/16 07:00 Alkaline Phosphatase 99 U/L (45-117) 07/24/16 07:00 Total Protein 8.0 g/dl (6.4-8.2) 07/24/16 07:00 Albumin 3.4 g/dl (3.4-5.0) 07/24/16 07:00 Active Medications Generic Name Dose Route Start Last Admin Trade Name Freq PRN Reason Stop Dose Admin Acetaminophen 650 mg 05/26/16 14:23 06/01/16 01:47 Tylenol Oral Solution - GT 650 mg Q4H PRN Administration FEVER Amino Acids 30 ml 06/28/16 10:00 08/05/16 11:56 Prostat Sugar-Free Packet - PO 30 ml DAILY KWAKU Administration Amlodipine Besylate 10 mg 12/30/15 10:00 08/05/16 11:55 Norvasc - GT 10 mg DAILY KWAKU Administration Bacitracin/Polymyxin B Sulfate 1 applic 07/25/16 22:00 08/05/16 11:55 Polysporin Ointment - TP 1 applic BID KWAKU Administration Guaifenesin 10 ml 12/29/15 10:43 08/02/16 10:38 Robitussin Dm - PO 10 ml Q6H PRN Administration COUGH Insulin Aspart 1 vial 01/28/16 16:30 08/05/16 06:15 Novolog Vial Sliding Scale - SQ Not Given BIDI [facility] Protocol Insulin Detemir 14 units 05/05/16 22:00 08/04/16 23:02 Levemir Vial SQ 14 units HS KWAKU Administration Lactobacillus Acidophilus 1 tab 12/30/15 10:00 08/05/16 11:55 Bacid - PO 1 tab DAILY KWAKU Administration Lisinopril 40 mg 12/30/15 10:00 08/05/16 11:56 Prinivil - GT 40 mg DAILY KWAKU Administration Metoprolol Tartrate 150 mg 12/29/15 22:00 08/05/16 11:58 Lopressor - GT 150 mg BID KWAKU Administration Metoprolol Tartrate 5 mg 12/29/15 10:43 Lopressor Injection - IVPB Q6H PRN HYPERTENSION Multivitamins 5 ml 12/30/15 10:00 08/05/16 11:56 Thera-Plus - GT 5 ml DAILY KWAKU Administration Pantoprazole Sodium 40 mg 12/30/15 10:00 08/05/16 11:56 Protonix Packets For Oral Suspension - GT 40 mg DAILY KWAKU Administration Scopolamine HBr 1 patch 05/20/16 15:45 08/03/16 18:04 Transderm-Scop - TD 1 patch Q72H KWAKU Administration ASSESSMENT/PLAN: 75 year old male with PMH of HTN, IDDM, inguinal hernia who presented to the ED with diverticular bleed s/p right hemicolectomy. 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 Hydronephrosis, chronic --renal function stable Right inguinal hernia --incidental finding on CT --no surgical intervention at this time Anoxic brain injury s/p brainstem CVAs --mental status unchanged Respiratory failure secondary to anoxic brain injury --trach tube replaced on 08/02/16; Dr. Melo unable to pass #8 cuffed Portex, able to place #6 cuffed Portex --satting 94% today on 28% trach collar --no bloody secretions, no oozing around the trach --Duonebs PRN Functional quadriplegia secondary to anoxic brain injury --inability to feed, turn, or toilet independently; requires complete care HTN --BP well-controlled --continue lisinopril, metoprolol, amlodipine Pressure ulcers --Allevyn dressing IDDM --Levemir --Novolog sliding scale coverage --fingersticks Nutrition --Glucerna 1.5 @ 60mL/hr + 50mL/hr free water via pump --Prostat daily --Must keep HOB 30 degrees at all times --Wait 20-30 mins to restart TF after administering total care to pt as to avoid aspiration and vomiting DVT prophylaxis: SCDs, no chemical anticoagulation Dispo: continues to require inpatient care. DNR. Visit Type - Emergency Visit Emergency Visit: Yes ED Registration Date: 06/27/15 Care time: The patient presented to the Emergency Department on the above date and was hospitalized for further evaluation of their emergent condition. - New Patient This patient is new to me today: No - Critical Care Critical Care patient: No Visit Type - Emergency Visit Emergency Visit: Yes ED Registration Date: 06/27/15 Care time: The patient presented to the Emergency Department on the above date and was hospitalized for further evaluation of their emergent condition. - New Patient This patient is new to me today: No - Critical Care Critical Care patient: No
[2016-08-05] MEDS: INSULIN DETEMIR 100 UNITS/ML MDV SQ SCH (23:14)
[2016-08-06] MEDS: BACITRACIN/POLYMYXIN B SULFATE 15 GM TUBE TP SCH ×2 (06:02→11:07)
[2016-08-06] MEDS: INSULIN SLIDING SCALE (NOVOLOG) 1 VIAL SQ SCH ×2 (06:04→17:41)
--- NOTE | 2016-08-06 10:19 | PN ---
Physical Exam: SUBJECTIVE: Patient seen and examined OBJECTIVE: Vital Signs Period Temp Pulse Resp BP Sys/Santiago Pulse Ox Last 24 Hr 98.8 F-99.8 F 63-91 20-24 120-156/77-97 97-97 GENERAL/NEURO: Eyes open. Non-verbal. Does not follow commands. Non-purposeful movement. HEAD: Normal with no signs of trauma. Trach collar. EYES: PERRL, extraocular movements intact, sclera anicteric, conjunctiva clear. No ptosis. ENT: Ears normal, nares patent, oropharynx clear without exudates, moist mucous membranes. LUNGS: CTA; on trach collar; no wheezing, no rhonchi, no accessory muscle use. HEART: Regular rate and rhythm, S1, S2 without murmur, rub or gallop. ABDOMEN: Soft, nontender, nondistended, normoactive bowel sounds, no guarding, no rebound, no hepatosplenomegaly, no masses. PEG tube. EXTREMITIES: 2+ pulses, warm, well-perfused, no edema. Laboratory Results - last 24 hr 08/05/16 08/06/16 08/06/16 16:19 02:34 05:54 POC Glucometer 92 124 111 Active Medications Generic Name Dose Route Start Last Admin Trade Name Freq PRN Reason Stop Dose Admin Acetaminophen 650 mg 05/26/16 14:23 06/01/16 01:47 Tylenol Oral Solution - GT 650 mg Q4H PRN Administration FEVER Amino Acids 30 ml 06/28/16 10:00 08/05/16 11:56 Prostat Sugar-Free Packet - PO 30 ml DAILY KWAKU Administration Amlodipine Besylate 10 mg 12/30/15 10:00 08/05/16 11:55 Norvasc - GT 10 mg DAILY KWAKU Administration Bacitracin/Polymyxin B Sulfate 1 applic 07/25/16 22:00 08/06/16 06:02 Polysporin Ointment - TP 1 applic BID KWAKU Administration Guaifenesin 10 ml 12/29/15 10:43 08/02/16 10:38 Robitussin Dm - PO 10 ml Q6H PRN Administration COUGH Insulin Aspart 1 vial 01/28/16 16:30 08/06/16 06:04 Novolog Vial Sliding Scale - SQ Not Given BIDI [facility] Protocol Insulin Detemir 14 units 05/05/16 22:00 08/05/16 23:14 Levemir Vial SQ 14 units HS KWAKU Administration Lactobacillus Acidophilus 1 tab 12/30/15 10:00 08/05/16 11:55 Bacid - PO 1 tab DAILY KWAKU Administration Lisinopril 40 mg 12/30/15 10:00 08/05/16 11:56 Prinivil - GT 40 mg DAILY KWAKU Administration Metoprolol Tartrate 150 mg 12/29/15 22:00 08/05/16 23:13 Lopressor - GT 150 mg BID KWAKU Administration Metoprolol Tartrate 5 mg 12/29/15 10:43 Lopressor Injection - IVPB Q6H PRN HYPERTENSION Multivitamins 5 ml 12/30/15 10:00 08/05/16 11:56 Thera-Plus - GT 5 ml DAILY KWAKU Administration Pantoprazole Sodium 40 mg 12/30/15 10:00 08/05/16 11:56 Protonix Packets For Oral Suspension - GT 40 mg DAILY KWAKU Administration Scopolamine HBr 1 patch 05/20/16 15:45 08/03/16 18:04 Transderm-Scop - TD 1 patch Q72H KWAKU Administration ASSESSMENT/PLAN: 75 year old male with PMH of HTN, IDDM, inguinal hernia who presented to the ED with diverticular bleed s/p right hemicolectomy. 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 Hydronephrosis, chronic --renal function stable Right inguinal hernia --incidental finding on CT --no surgical intervention at this time Anoxic brain injury s/p brainstem CVAs --mental status unchanged Respiratory failure secondary to anoxic brain injury --trach tube replaced on 08/02/16; Dr. Melo unable to pass #8 cuffed Portex, able to place #6 cuffed Portex --satting 94% today on 28% trach collar --no bloody secretions, no oozing around the trach --Duonebs PRN Functional quadriplegia secondary to anoxic brain injury --inability to feed, turn, or toilet independently; requires complete care HTN --BP well-controlled --continue lisinopril, metoprolol, amlodipine Pressure ulcers --Allevyn dressing IDDM --Levemir --Novolog sliding scale coverage --fingersticks Nutrition --Glucerna 1.5 @ 60mL/hr + 50mL/hr free water via pump --Prostat daily --Must keep HOB 30 degrees at all times --Wait 20-30 mins to restart TF after administering total care to pt as to avoid aspiration and vomiting DVT prophylaxis: SCDs, no chemical anticoagulation Dispo: continues to require inpatient care. DNR. Visit Type - Emergency Visit Emergency Visit: Yes ED Registration Date: 06/27/15 Care time: The patient presented to the Emergency Department on the above date and was hospitalized for further evaluation of their emergent condition. - New Patient This patient is new to me today: No - Critical Care Critical Care patient: No
[2016-08-06] MEDS: METOPROLOL TARTRATE 50 MG TABLET (FP) GT SCH (11:05)
[2016-08-06] MEDS: LACTOBACILLUS ACIDOPHILUS 1 EACH TAB (FP) PO SCH (11:05)
[2016-08-06] MEDS: LISINOPRIL 20 MG TABLET (FP) GT SCH (11:06)
[2016-08-06] MEDS: PANTOPRAZOLE SOD 40 MG SUSPENSION PACKET GT SCH (11:07)
[2016-08-06] MEDS: AMINO ACIDS/PROTEIN HYDROLYS SUGAR-FREE 30 ML PACKET PO SCH (11:07)
[2016-08-06] MEDS: amLODIPine BESYLATE 10 MG TABLET (FP) GT SCH (11:07)
[2016-08-06] MEDS: MULTIVITAMINS THERAPEUTIC GT SCH (11:08)
[2016-08-06] MEDS: SCOPOLAMINE HYDROBROMIDE 1 PATCH PATCH.TD72 TD SCH (17:38)
[2016-08-06] MEDS: INSULIN DETEMIR 100 UNITS/ML MDV SQ SCH (23:23)
[2016-08-07] MEDS: METOPROLOL TARTRATE 50 MG TABLET (FP) GT SCH ×3 (00:09→21:13)
[2016-08-07] MEDS: BACITRACIN/POLYMYXIN B SULFATE 15 GM TUBE TP SCH ×3 (06:35→22:31)
[2016-08-07] MEDS: INSULIN SLIDING SCALE (NOVOLOG) 1 VIAL SQ SCH ×2 (06:50→17:47)
[2016-08-07 08:19] LABS: BASOPHIL 0.7 % (0-2.0); EOSINOPHIL 7.1 % (0-4.5); MCH 27.8 pg (25.7-33.7); MCHC 32.2 g/dl (32.0-35.9); MEAN CELL VOLUME 86.3 fl (80-96); NEUTROPHILS 59.3 % (42.8-82.8); PLATELET COUNT 189 K/MM3 (134-434); WHITE BLOOD COUNT 9.4 K/mm3 (4.0-10.0)
[2016-08-07 08:34] LABS: INR 1.27 (0.82-1.09)
[2016-08-07 08:44] LABS: ALBUMIN 3.5 g/dl (3.4-5.0); ALK PHOS 110 U/L (45-117); ANION GAP 5 (8-16); BILIRUBIN,TOTAL 0.3 mg/dL (0.2-1.0); CALCIUM 9.3 mg/dL (8.5-10.1); CO2 31 mmol/L (21-32); CREATININE 0.9 mg/dL (0.7-1.3); GLUCOSE,RANDOM 120 mg/dL (74-106); MAGNESIUM 2.1 mg/dL (1.8-2.4); PHOSPHOROUS 3.2 mg/dL (2.5-4.9); SGOT/AST 12 U/L (15-37); SGPT/ALT 26 U/L (12-78)
--- NOTE | 2016-08-07 09:25 | PN ---
Progress Note (short form) - Note Progress Note: Subjective: The patient was seen and examined at the bedside, non-verbal. Remains on trach collar. Discussed with respiratory therapy, will attempt to wean to nasal cannula. CBCD WBC 9.4 K/mm3 (4.0-10.0) D 08/07/16 08:06 RBC 3.91 M/mm3 (4.00-5.60) L 08/07/16 08:06 Hgb 10.9 GM/dL (11.7-16.9) L 08/07/16 08:06 Hct 33.7 % (35.4-49) L 08/07/16 08:06 MCV 86.3 fl (80-96) 08/07/16 08:06 MCHC 32.2 g/dl (32.0-35.9) 08/07/16 08:06 RDW 15.0 % (11.9-15.9) 08/07/16 08:06 Plt Count 189 K/MM3 (134-434) 08/07/16 08:06 MPV 9.0 fl (7.5-11.1) 08/07/16 08:06 CMP Sodium 142 mmol/L (136-145) 08/07/16 08:06 Potassium 3.8 mmol/L (3.5-5.1) 08/07/16 08:06 Chloride 106 mmol/L (98-107) 08/07/16 08:06 Carbon Dioxide 31 mmol/L (21-32) 08/07/16 08:06 Anion Gap 5 (8-16) L 08/07/16 08:06 BUN 21 mg/dL (7-18) H 08/07/16 08:06 Creatinine 0.9 mg/dL (0.7-1.3) 08/07/16 08:06 Creat Clearance w eGFR > 60 (>60) 08/07/16 08:06 Random Glucose 120 mg/dL (74-106) H 08/07/16 08:06 Calcium 9.3 mg/dL (8.5-10.1) 08/07/16 08:06 Total Bilirubin 0.3 mg/dL (0.2-1.0) D 08/07/16 08:06 AST 12 U/L (15-37) L 08/07/16 08:06 ALT 26 U/L (12-78) 08/07/16 08:06 Alkaline Phosphatase 110 U/L (45-117) 08/07/16 08:06 Total Protein 8.0 g/dl (6.4-8.2) 08/07/16 08:06 Albumin 3.5 g/dl (3.4-5.0) 08/07/16 08:06 CARDIAC ENZYMES Creatine Kinase 62 IU/L (38-174) 06/28/15 09:35 Troponin I 0.07 ng/ml (0.03-0.5) D 07/09/15 05:00 Objective: Vital Signs Period Temp Pulse Resp BP Sys/Santiago Pulse Ox Last 24 Hr 98.4 F-99.7 F 58-84 22-22 138-148/74-88 95-97 Physical Exam: General: No acute distress Neuro: Eye tracking to verbal stimulus Pulm: Tach collar, CTA anteriorly CV: RRR, S1S2 Abd: Soft, non-distended. Normoactive bowel sounds. Peg tube c/d/i Ext: Warm, well-perfused. 2+ DP/PT bilaterally CBCD WBC 9.4 K/mm3 (4.0-10.0) D 08/07/16 08:06 RBC 3.91 M/mm3 (4.00-5.60) L 08/07/16 08:06 Hgb 10.9 GM/dL (11.7-16.9) L 08/07/16 08:06 Hct 33.7 % (35.4-49) L 08/07/16 08:06 MCV 86.3 fl (80-96) 08/07/16 08:06 MCHC 32.2 g/dl (32.0-35.9) 08/07/16 08:06 RDW 15.0 % (11.9-15.9) 08/07/16 08:06 Plt Count 189 K/MM3 (134-434) 08/07/16 08:06 MPV 9.0 fl (7.5-11.1) 08/07/16 08:06 CMP Sodium 142 mmol/L (136-145) 08/07/16 08:06 Potassium 3.8 mmol/L (3.5-5.1) 08/07/16 08:06 Chloride 106 mmol/L (98-107) 08/07/16 08:06 Carbon Dioxide 31 mmol/L (21-32) 08/07/16 08:06 Anion Gap 5 (8-16) L 08/07/16 08:06 BUN 21 mg/dL (7-18) H 08/07/16 08:06 Creatinine 0.9 mg/dL (0.7-1.3) 08/07/16 08:06 Creat Clearance w eGFR > 60 (>60) 08/07/16 08:06 Random Glucose 120 mg/dL (74-106) H 08/07/16 08:06 Calcium 9.3 mg/dL (8.5-10.1) 08/07/16 08:06 Total Bilirubin 0.3 mg/dL (0.2-1.0) D 08/07/16 08:06 AST 12 U/L (15-37) L 08/07/16 08:06 ALT 26 U/L (12-78) 08/07/16 08:06 Alkaline Phosphatase 110 U/L (45-117) 08/07/16 08:06 Total Protein 8.0 g/dl (6.4-8.2) 08/07/16 08:06 Albumin 3.5 g/dl (3.4-5.0) 08/07/16 08:06 CARDIAC ENZYMES Creatine Kinase 62 IU/L (38-174) 06/28/15 09:35 Troponin I 0.07 ng/ml (0.03-0.5) D 07/09/15 05:00 Assessment: 75 year old male with PMHx of HTN, IDDM, inguinal hernia who presented to the ED with diverticular bleed s/p Righ hemicolectomy with 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 Plan: 1. Anoxic brain injury s/p brainstem CVAs - Mental status unchanged 2. Respiratory failure secondary to anoxic brain injury - Cont trach collar (silicone Protex): Next trach change 08/30 - Duonebs PRN 3. HTN - Hold metoprolol due to periods of bradycardia - EKG with marked sinus arrhythmia, no significant change found when compared to prior EKG - Continue lisinopril, amlodipine 4. Multiple pressure ulcers - Turn and position q2h 5. IDDM - Continue Levemir at 14u sq qhs - ISS BGM ACHS 6. F/E/N: - 60 ml/hr Glucerna 1.5, 50 ml/hr H20 - Prostat daily 7. Prophylaxis: - SCDs bilaterally - No chemical anticoagulation 2/2 spontaneous gluteal bleed and severe GI bleed - Functional quadriplegia CODE STATUS: DNR Plan: 1. Anoxic brain injury s/p brainstem CVAs - Mental status unchanged 2. Respiratory failure secondary to anoxic brain injury - Cont trach collar (consult ENT to change trach collar. Attempt to wean from trach to nasal cannula yesterday, however we do not have the button for his shiley, will attempt after trach changed) - Duonebs PRN 3. HTN - Hold metoprolol due to periods of bradycardia - EKG with marked sinus arrhythmia, no significant change found when compared to prior EKG - Continue lisinopril, amlodipine 4. Multiple pressure ulcers - Turn and position q2h 5. IDDM - Continue Levemir at 14u sq qhs - ISS BGM ACHS 6. F/E/N: - 60 ml/hr Glucerna 1.5, 50 ml/hr H20 - Prostat daily 7. Prophylaxis: - SCDs bilaterally - No chemical anticoagulation 2/2 spontaneous gluteal bleed and severe GI bleed - Functional quadriplegia CODE STATUS: DNR
[2016-08-07] MEDS: PANTOPRAZOLE SOD 40 MG SUSPENSION PACKET GT SCH (10:59)
[2016-08-07] MEDS: AMINO ACIDS/PROTEIN HYDROLYS SUGAR-FREE 30 ML PACKET PO SCH (10:59)
[2016-08-07] MEDS: LACTOBACILLUS ACIDOPHILUS 1 EACH TAB (FP) PO SCH (10:59)
[2016-08-07] MEDS: amLODIPine BESYLATE 10 MG TABLET (FP) GT SCH (11:00)
[2016-08-07] MEDS: MULTIVITAMINS THERAPEUTIC GT SCH (11:00)
[2016-08-07] MEDS: LISINOPRIL 20 MG TABLET (FP) GT SCH (11:00)
--- NOTE | 2016-08-07 12:49 | EKG ---
Test Reason : Blood Pressure : / mmHG Vent. Rate : 092 BPM Atrial Rate : 092 BPM P-R Int : 168 ms QRS Dur : 092 ms QT Int : 378 ms P-R-T Axes : 040 -23 003 degrees QTc Int : 467 ms NORMAL SINUS RHYTHM POSSIBLE LEFT ATRIAL ENLARGEMENT LEFT VENTRICULAR HYPERTROPHY ABNORMAL ECG WHEN COMPARED WITH ECG OF 01-AUG-2016 15:03, VENT. RATE HAS INCREASED BY 32 BPM Confirmed by ORLIN HERRERA, CARMINA ([id number]) on 08/07/2016 12:49:40 PM Referred By: JANELL ALANIZ Overread By: CARMINA ORDAZ MD
[2016-08-07] MEDS: INSULIN DETEMIR 100 UNITS/ML MDV SQ SCH (21:13)
[2016-08-08] MEDS: INSULIN SLIDING SCALE (NOVOLOG) 1 VIAL SQ SCH ×2 (06:23→17:29)
--- NOTE | 2016-08-08 09:30 | PN ---
Progress Note (short form) - Note Progress Note: Subjective: The patient was seen and examined at the bedside, non-verbal. Weaned to room air today, tolerating it well (96%) Current Medications Generic Name Dose Route Start Last Admin Trade Name Freq PRN Reason Stop Dose Admin Acetaminophen 650 mg 05/26/16 14:23 06/01/16 01:47 Tylenol Oral Solution - GT 650 mg Q4H PRN Administration FEVER Amino Acids 30 ml 06/28/16 10:00 08/07/16 10:59 Prostat Sugar-Free Packet - PO 30 ml DAILY KWAKU Administration Amlodipine Besylate 10 mg 12/30/15 10:00 08/07/16 11:00 Norvasc - GT Not Given DAILY KWAKU Bacitracin/Polymyxin B Sulfate 1 applic 07/25/16 22:00 08/07/16 22:31 Polysporin Ointment - TP 1 applic BID KWAKU Administration Guaifenesin 10 ml 12/29/15 10:43 08/02/16 10:38 Robitussin Dm - PO 10 ml Q6H PRN Administration COUGH Insulin Aspart 1 vial 01/28/16 16:30 08/08/16 06:23 Novolog Vial Sliding Scale - SQ Not Given BIDI [facility] Protocol Insulin Detemir 14 units 05/05/16 22:00 08/07/16 21:13 Levemir Vial SQ 14 units HS KWAKU Administration Lactobacillus Acidophilus 1 tab 12/30/15 10:00 08/07/16 10:59 Bacid - PO 1 tab DAILY KWAKU Administration Lisinopril 40 mg 12/30/15 10:00 08/07/16 11:00 Prinivil - GT Not Given DAILY KWAKU Metoprolol Tartrate 150 mg 12/29/15 22:00 08/07/16 21:13 Lopressor - GT 150 mg BID KWAKU Administration Metoprolol Tartrate 5 mg 12/29/15 10:43 Lopressor Injection - IVPB Q6H PRN HYPERTENSION Multivitamins 5 ml 12/30/15 10:00 08/07/16 11:00 Thera-Plus - GT 5 ml DAILY KWAKU Administration Pantoprazole Sodium 40 mg 12/30/15 10:00 08/07/16 10:59 Protonix Packets For Oral Suspension - GT 40 mg DAILY KWAKU Administration Scopolamine HBr 1 patch 05/20/16 15:45 08/06/16 17:38 Transderm-Scop - TD 1 patch Q72H KWAKU Administration Objective: Vital Signs Period Temp Pulse Resp BP Sys/Santiago Pulse Ox Last 24 Hr 97.9 F-98.8 F 78-101 20-24 88-145/60-77 98-98 Physical Exam: General: No acute distress Neuro: Eye tracking to verbal stimulus Pulm: Tach collar capped, CTA anteriorly CV: RRR, S1S2 Abd: Soft, non-distended. Normoactive bowel sounds. Peg tube c/d/i Ext: Warm, well-perfused. 2+ DP/PT bilaterally CBCD WBC 9.4 K/mm3 (4.0-10.0) D 08/07/16 08:06 RBC 3.91 M/mm3 (4.00-5.60) L 08/07/16 08:06 Hgb 10.9 GM/dL (11.7-16.9) L 08/07/16 08:06 Hct 33.7 % (35.4-49) L 08/07/16 08:06 MCV 86.3 fl (80-96) 08/07/16 08:06 MCHC 32.2 g/dl (32.0-35.9) 08/07/16 08:06 RDW 15.0 % (11.9-15.9) 08/07/16 08:06 Plt Count 189 K/MM3 (134-434) 08/07/16 08:06 MPV 9.0 fl (7.5-11.1) 08/07/16 08:06 CMP Sodium 142 mmol/L (136-145) 08/07/16 08:06 Potassium 3.8 mmol/L (3.5-5.1) 08/07/16 08:06 Chloride 106 mmol/L (98-107) 08/07/16 08:06 Carbon Dioxide 31 mmol/L (21-32) 08/07/16 08:06 Anion Gap 5 (8-16) L 08/07/16 08:06 BUN 21 mg/dL (7-18) H 08/07/16 08:06 Creatinine 0.9 mg/dL (0.7-1.3) 08/07/16 08:06 Creat Clearance w eGFR > 60 (>60) 08/07/16 08:06 Random Glucose 120 mg/dL (74-106) H 08/07/16 08:06 Calcium 9.3 mg/dL (8.5-10.1) 08/07/16 08:06 Total Bilirubin 0.3 mg/dL (0.2-1.0) D 08/07/16 08:06 AST 12 U/L (15-37) L 08/07/16 08:06 ALT 26 U/L (12-78) 08/07/16 08:06 Alkaline Phosphatase 110 U/L (45-117) 08/07/16 08:06 Total Protein 8.0 g/dl (6.4-8.2) 08/07/16 08:06 Albumin 3.5 g/dl (3.4-5.0) 08/07/16 08:06 CARDIAC ENZYMES Creatine Kinase 62 IU/L (38-174) 06/28/15 09:35 Troponin I 0.07 ng/ml (0.03-0.5) D 07/09/15 05:00 Assessment: 75 year old male with PMHx of HTN, IDDM, inguinal hernia who presented to the ED with diverticular bleed s/p Righ hemicolectomy with 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 Plan: 1. Anoxic brain injury s/p brainstem CVAs - Mental status unchanged 2. Respiratory failure secondary to anoxic brain injury - Cont trach collar (silicone Portex): Next trach change 08/30 - Duonebs PRN 3. HTN - Hold metoprolol due to periods of bradycardia - EKG with marked sinus arrhythmia, no significant change found when compared to prior EKG - Continue lisinopril, amlodipine 4. Multiple pressure ulcers - Turn and position q2h 5. IDDM - Continue Levemir at 14u sq qhs - ISS BGM ACHS 6. F/E/N: - 60 ml/hr Glucerna 1.5, 50 ml/hr H20 - Prostat daily 7. Prophylaxis: - SCDs bilaterally - No chemical anticoagulation 2/2 spontaneous gluteal bleed and severe GI bleed - Functional quadriplegia CODE STATUS: DNR
[2016-08-08] MEDS: METOPROLOL TARTRATE 50 MG TABLET (FP) GT SCH ×2 (10:41→23:47)
[2016-08-08] MEDS: PANTOPRAZOLE SOD 40 MG SUSPENSION PACKET GT SCH (10:42)
[2016-08-08] MEDS: BACITRACIN/POLYMYXIN B SULFATE 15 GM TUBE TP SCH ×2 (10:42→23:47)
[2016-08-08] MEDS: AMINO ACIDS/PROTEIN HYDROLYS SUGAR-FREE 30 ML PACKET PO SCH (10:42)
[2016-08-08] MEDS: amLODIPine BESYLATE 10 MG TABLET (FP) GT SCH (10:42)
[2016-08-08] MEDS: LACTOBACILLUS ACIDOPHILUS 1 EACH TAB (FP) PO SCH (10:42)
[2016-08-08] MEDS: LISINOPRIL 20 MG TABLET (FP) GT SCH (10:42)
[2016-08-08] MEDS: MULTIVITAMINS THERAPEUTIC GT SCH (10:42)
[2016-08-08] MEDS: INSULIN DETEMIR 100 UNITS/ML MDV SQ SCH (23:47)
[2016-08-09] MEDS: INSULIN SLIDING SCALE (NOVOLOG) 1 VIAL SQ SCH ×2 (06:53→17:45)
[2016-08-09] MEDS: LACTOBACILLUS ACIDOPHILUS 1 EACH TAB (FP) PO SCH (11:04)
[2016-08-09] MEDS: LISINOPRIL 20 MG TABLET (FP) GT SCH (11:05)
[2016-08-09] MEDS: amLODIPine BESYLATE 10 MG TABLET (FP) GT SCH (11:05)
[2016-08-09] MEDS: PANTOPRAZOLE SOD 40 MG SUSPENSION PACKET GT SCH (11:05)
[2016-08-09] MEDS: BACITRACIN/POLYMYXIN B SULFATE 15 GM TUBE TP SCH ×2 (11:05→23:27)
[2016-08-09] MEDS: METOPROLOL TARTRATE 50 MG TABLET (FP) GT SCH ×2 (11:05→23:27)
[2016-08-09] MEDS: AMINO ACIDS/PROTEIN HYDROLYS SUGAR-FREE 30 ML PACKET PO SCH (11:05)
[2016-08-09] MEDS: MULTIVITAMINS THERAPEUTIC GT SCH (11:05)
--- NOTE | 2016-08-09 11:42 | PN ---
Progress Note (short form) - Note Progress Note: Subjective: The patient was seen and examined at the bedside, non-verbal. Remains on room air, tolerating it well (96%) Current Medications Generic Name Dose Route Start Last Admin Trade Name Freq PRN Reason Stop Dose Admin Acetaminophen 650 mg 05/26/16 14:23 06/01/16 01:47 Tylenol Oral Solution - GT 650 mg Q4H PRN Administration FEVER Amino Acids 30 ml 06/28/16 10:00 08/09/16 11:05 Prostat Sugar-Free Packet - PO 30 ml DAILY KWAKU Administration Amlodipine Besylate 10 mg 12/30/15 10:00 08/09/16 11:05 Norvasc - GT 10 mg DAILY KWAKU Administration Bacitracin/Polymyxin B Sulfate 1 applic 07/25/16 22:00 08/09/16 11:05 Polysporin Ointment - TP 1 applic BID KWAKU Administration Guaifenesin 10 ml 12/29/15 10:43 08/02/16 10:38 Robitussin Dm - PO 10 ml Q6H PRN Administration COUGH Insulin Aspart 1 vial 01/28/16 16:30 08/09/16 06:53 Novolog Vial Sliding Scale - SQ Not Given BIDI [facility] Protocol Insulin Detemir 14 units 05/05/16 22:00 08/08/16 23:47 Levemir Vial SQ 14 units HS KWAKU Administration Lactobacillus Acidophilus 1 tab 12/30/15 10:00 08/09/16 11:04 Bacid - PO 1 tab DAILY KWAKU Administration Lisinopril 40 mg 12/30/15 10:00 08/09/16 11:05 Prinivil - GT 40 mg DAILY KWAKU Administration Metoprolol Tartrate 150 mg 12/29/15 22:00 08/09/16 11:05 Lopressor - GT 150 mg BID KWAKU Administration Metoprolol Tartrate 5 mg 12/29/15 10:43 Lopressor Injection - IVPB Q6H PRN HYPERTENSION Multivitamins 5 ml 12/30/15 10:00 08/09/16 11:05 Thera-Plus - GT 5 ml DAILY KWAKU Administration Pantoprazole Sodium 40 mg 12/30/15 10:00 08/09/16 11:05 Protonix Packets For Oral Suspension - GT 40 mg DAILY KWAKU Administration Scopolamine HBr 1 patch 05/20/16 15:45 08/06/16 17:38 Transderm-Scop - TD 1 patch Q72H KWAKU Administration Objective: Vital Signs Period Temp Pulse Resp BP Sys/Santiago Pulse Ox Last 24 Hr 97.0 F-98.5 F 60-84 20-22 138-167/76-88 93-98 Physical Exam: General: No acute distress Neuro: Eye tracking to verbal stimulus Pulm: Tach collar capped on RA, CTA anteriorly CV: RRR, S1S2 Abd: Soft, non-distended. Normoactive bowel sounds. Peg tube c/d/i Ext: Warm, well-perfused. 2+ DP/PT bilaterally CBCD WBC 9.4 K/mm3 (4.0-10.0) D 08/07/16 08:06 RBC 3.91 M/mm3 (4.00-5.60) L 08/07/16 08:06 Hgb 10.9 GM/dL (11.7-16.9) L 08/07/16 08:06 Hct 33.7 % (35.4-49) L 08/07/16 08:06 MCV 86.3 fl (80-96) 08/07/16 08:06 MCHC 32.2 g/dl (32.0-35.9) 08/07/16 08:06 RDW 15.0 % (11.9-15.9) 08/07/16 08:06 Plt Count 189 K/MM3 (134-434) 08/07/16 08:06 MPV 9.0 fl (7.5-11.1) 08/07/16 08:06 CMP Sodium 142 mmol/L (136-145) 08/07/16 08:06 Potassium 3.8 mmol/L (3.5-5.1) 08/07/16 08:06 Chloride 106 mmol/L (98-107) 08/07/16 08:06 Carbon Dioxide 31 mmol/L (21-32) 08/07/16 08:06 Anion Gap 5 (8-16) L 08/07/16 08:06 BUN 21 mg/dL (7-18) H 08/07/16 08:06 Creatinine 0.9 mg/dL (0.7-1.3) 08/07/16 08:06 Creat Clearance w eGFR > 60 (>60) 08/07/16 08:06 Random Glucose 120 mg/dL (74-106) H 08/07/16 08:06 Calcium 9.3 mg/dL (8.5-10.1) 08/07/16 08:06 Total Bilirubin 0.3 mg/dL (0.2-1.0) D 08/07/16 08:06 AST 12 U/L (15-37) L 08/07/16 08:06 ALT 26 U/L (12-78) 08/07/16 08:06 Alkaline Phosphatase 110 U/L (45-117) 08/07/16 08:06 Total Protein 8.0 g/dl (6.4-8.2) 08/07/16 08:06 Albumin 3.5 g/dl (3.4-5.0) 08/07/16 08:06 CARDIAC ENZYMES Creatine Kinase 62 IU/L (38-174) 06/28/15 09:35 Troponin I 0.07 ng/ml (0.03-0.5) D 07/09/15 05:00 Assessment: 75 year old male with PMHx of HTN, IDDM, inguinal hernia who presented to the ED with diverticular bleed s/p Righ hemicolectomy with 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 Plan: 1. Anoxic brain injury s/p brainstem CVAs - Mental status unchanged 2. Respiratory failure secondary to anoxic brain injury - Cont O2 via nasal cannula (silicone Portex): Next trach change 08/30 - Duonebs PRN 3. HTN - Hold metoprolol due to periods of bradycardia - EKG with marked sinus arrhythmia, no significant change found when compared to prior EKG - Continue lisinopril, amlodipine 4. Multiple pressure ulcers - Turn and position q2h 5. IDDM - Continue Levemir at 14u sq qhs - ISS BGM ACHS 6. F/E/N: - 65 ml/hr Glucerna 1.5, 50 ml/hr water flushes - Prostat daily 7. Prophylaxis: - SCDs bilaterally - No chemical anticoagulation 2/2 spontaneous gluteal bleed and severe GI bleed - Functional quadriplegia CODE STATUS: DNR
[2016-08-09] MEDS: SCOPOLAMINE HYDROBROMIDE 1 PATCH PATCH.TD72 TD SCH (15:37)
[2016-08-09] MEDS: BACITRACIN 15 GM TUBE TOPICAL OINTMENT TP SCH (17:44)
[2016-08-09] MEDS: INSULIN DETEMIR 100 UNITS/ML MDV SQ SCH (23:27)
[2016-08-10 02:04] LABS: BASOPHIL 0.9 % (0-2.0); EOSINOPHIL 6.7 % (0-4.5); MCH 28.6 pg (25.7-33.7); MCHC 32.9 g/dl (32.0-35.9); MEAN PLT VOLUME 9.6 fl (7.5-11.1); NEUTROPHILS 62.9 % (42.8-82.8); PLATELET COUNT 210 K/MM3 (134-434); RDW 15.2 % (11.9-15.9); WHITE BLOOD COUNT 8.7 K/mm3 (4.0-10.0)
[2016-08-10 02:24] LABS: ALBUMIN 3.3 g/dl (3.4-5.0); ALK PHOS 107 U/L (45-117); ANION GAP 8 (8-16); BILIRUBIN,TOTAL 0.3 mg/dL (0.2-1.0); CALCIUM 9.7 mg/dL (8.5-10.1); CREATININE 0.9 mg/dL (0.7-1.3); GLUCOSE,RANDOM 141 mg/dL (74-106); MAGNESIUM 2.3 mg/dL (1.8-2.4); SGOT/AST 16 U/L (15-37); SGPT/ALT 27 U/L (12-78); TOT PROT 8.1 g/dl (6.4-8.2)
[2016-08-10 05:11] LABS: URINE APPEARANCE CLEAR; URINE BILIRUBIN NEGATIVE (NEGATIVE); URINE BLOOD NEGATIVE (NEGATIVE); URINE COLOR YELLOW; URINE GLUCOSE (UA) NEGATIVE (NEGATIVE); URINE KETONE NEGATIVE (NEGATIVE); URINE LEUK ESTERASE NEGATIVE (NEGATIVE); URINE NITRITE NEGATIVE (NEGATIVE); URINE PROTEIN NEGATIVE (NEGATIVE); URINE UROBILINOGEN NEGATIVE E.U./dl (0.2-1.0)
[2016-08-10] MEDS: INSULIN SLIDING SCALE (NOVOLOG) 1 VIAL SQ SCH ×2 (07:08→16:59)
[2016-08-10 07:21] LABS: BASOPHIL 1.8 % (0-2.0); EOSINOPHIL 6.2 % (0-4.5); MCH 28.6 pg (25.7-33.7); MCHC 32.7 g/dl (32.0-35.9); MEAN CELL VOLUME 87.4 fl (80-96); MEAN PLT VOLUME 9.2 fl (7.5-11.1); PLATELET COUNT 204 K/MM3 (134-434); RDW 15.1 % (11.9-15.9); WHITE BLOOD COUNT 9.8 K/mm3 (4.0-10.0)
[2016-08-10 08:35] LABS: CO2 30 mmol/L (21-32)
[2016-08-10 08:53] LABS: ALBUMIN 3.5 g/dl (3.4-5.0); ALK PHOS 121 U/L (45-117); ANION GAP 12 (8-16); BILIRUBIN,TOTAL 0.3 mg/dL (0.2-1.0); CALCIUM 9.9 mg/dL (8.5-10.1); CO2 25 mmol/L (21-32); CREATININE 0.9 mg/dL (0.7-1.3); GLUCOSE,RANDOM 159 mg/dL (74-106); SGOT/AST 21 U/L (15-37); SGPT/ALT 28 U/L (12-78); TOT PROT 8.6 g/dl (6.4-8.2)
[2016-08-10] MEDS: METOPROLOL TARTRATE 50 MG TABLET (FP) GT SCH ×2 (11:03→21:28)
[2016-08-10] MEDS: PANTOPRAZOLE SOD 40 MG SUSPENSION PACKET GT SCH (11:03)
[2016-08-10] MEDS: LACTOBACILLUS ACIDOPHILUS 1 EACH TAB (FP) PO SCH (11:03)
[2016-08-10] MEDS: LISINOPRIL 20 MG TABLET (FP) GT SCH (11:03)
[2016-08-10] MEDS: amLODIPine BESYLATE 10 MG TABLET (FP) GT SCH (11:03)
[2016-08-10] MEDS: BACITRACIN 15 GM TUBE TOPICAL OINTMENT TP SCH (11:03)
[2016-08-10] MEDS: BACITRACIN/POLYMYXIN B SULFATE 15 GM TUBE TP SCH ×2 (11:04→21:31)
[2016-08-10] MEDS: MULTIVITAMINS THERAPEUTIC GT SCH (11:04)
--- NOTE | 2016-08-10 15:50 | PN ---
Physical Exam: SUBJECTIVE: Patient seen and examined. Appears comfortable at rest, non verbal at baseline. Fevers overnight. OBJECTIVE: Vital Signs Period Temp Pulse Resp BP Sys/Santiago Pulse Ox Last 24 Hr 98.8 F-100.5 F 62-87 16-22 135-152/77-93 95-99 GENERAL: non verbal at baseline HEAD: Normal with no signs of trauma. NECK: Trachea midline, full range of motion, supple. LUNGS: rhonchi anteriorly HEART: Regular rate and rhythm ABDOMEN: peg tube EXTREMITIES: 2+ pulses, warm, PSYCH: mental status at baseline Laboratory Results - last 24 hr 08/09/16 08/09/16 08/10/16 17:42 22:48 01:45 WBC 8.7 RBC 3.90 L Hgb 11.1 L Hct 33.9 L MCV 87.0 MCHC 32.9 RDW 15.2 Plt Count 210 MPV 9.6 Neutrophils % 62.9 Lymphocytes % 23.9 Monocytes % 5.6 Eosinophils % 6.7 H Basophils % 0.9 Sodium Potassium Chloride Carbon Dioxide Anion Gap BUN Creatinine Creat Clearance w eGFR POC Glucometer 134 Random Glucose Calcium Magnesium Total Bilirubin AST ALT Alkaline Phosphatase Total Protein Albumin Urine Color Yellow Urine Appearance Clear Urine pH 7.0 Ur Specific [place] 1.018 Urine Protein Negative Urine Glucose (UA) Negative Urine Ketones Negative Urine Blood Negative Urine Nitrite Negative Urine Bilirubin Negative Urine Urobilinogen Negative Ur Leukocyte Esterase Negative 08/10/16 08/10/16 08/10/16 01:45 06:45 06:45 WBC 9.8 RBC 4.07 Hgb 11.6 L Hct 35.6 MCV 87.4 MCHC 32.7 RDW 15.1 Plt Count 204 MPV 9.2 Neutrophils % 54.0 Lymphocytes % 32.8 D Monocytes % 5.2 Eosinophils % 6.2 H Basophils % 1.8 Sodium 145 144 Potassium 3.9 4.2 Chloride 107 107 Carbon Dioxide 30 25 Anion Gap 8 12 BUN 20 H 21 H Creatinine 0.9 0.9 Creat Clearance w eGFR > 60 > 60 POC Glucometer Random Glucose 141 H 159 H Calcium 9.7 9.9 Magnesium 2.3 Total Bilirubin 0.3 0.3 AST 16 D 21 D ALT 27 28 Alkaline Phosphatase 107 121 H Total Protein 8.1 8.6 H Albumin 3.3 L 3.5 Urine Color Urine Appearance Urine pH Ur Specific [place] Urine Protein Urine Glucose (UA) Urine Ketones Urine Blood Urine Nitrite Urine Bilirubin Urine Urobilinogen Ur Leukocyte Esterase 08/10/16 07:03 WBC RBC Hgb Hct MCV MCHC RDW Plt Count MPV Neutrophils % Lymphocytes % Monocytes % Eosinophils % Basophils % Sodium Potassium Chloride Carbon Dioxide Anion Gap BUN Creatinine Creat Clearance w eGFR POC Glucometer 161 Random Glucose Calcium Magnesium Total Bilirubin AST ALT Alkaline Phosphatase Total Protein Albumin Urine Color Urine Appearance Urine pH Ur Specific [place] Urine Protein Urine Glucose (UA) Urine Ketones Urine Blood Urine Nitrite Urine Bilirubin Urine Urobilinogen Ur Leukocyte Esterase Active Medications Generic Name Dose Route Start Last Admin Trade Name Freq PRN Reason Stop Dose Admin Acetaminophen 650 mg 05/26/16 14:23 06/01/16 01:47 Tylenol Oral Solution - GT 650 mg Q4H PRN Administration FEVER Amino Acids 30 ml 06/28/16 10:00 08/09/16 11:05 Prostat Sugar-Free Packet - PO 30 ml DAILY KWAKU Administration Amlodipine Besylate 10 mg 12/30/15 10:00 08/10/16 11:03 Norvasc - GT 10 mg DAILY KWAKU Administration Bacitracin 1 applic 08/09/16 16:15 08/10/16 11:03 Bacitracin - TP 1 applic DAILY KWAKU Administration Bacitracin/Polymyxin B Sulfate 1 applic 07/25/16 22:00 08/10/16 11:04 Polysporin Ointment - TP 1 applic BID KWAKU Administration Guaifenesin 10 ml 12/29/15 10:43 08/02/16 10:38 Robitussin Dm - PO 10 ml Q6H PRN Administration COUGH Insulin Aspart 1 vial 01/28/16 16:30 08/10/16 07:08 Novolog Vial Sliding Scale - SQ 2 units BIDI KWAKU Administration Protocol Insulin Detemir 14 units 05/05/16 22:00 08/09/16 23:27 Levemir Vial SQ 14 units HS KWAKU Administration Lactobacillus Acidophilus 1 tab 12/30/15 10:00 08/10/16 11:03 Bacid - PO 1 tab DAILY KWAKU Administration Lisinopril 40 mg 12/30/15 10:00 08/10/16 11:03 Prinivil - GT 40 mg DAILY KWAKU Administration Metoprolol Tartrate 150 mg 12/29/15 22:00 08/10/16 11:03 Lopressor - GT 150 mg BID KWAKU Administration Metoprolol Tartrate 5 mg 12/29/15 10:43 Lopressor Injection - IVPB Q6H PRN HYPERTENSION Multivitamins 5 ml 12/30/15 10:00 08/10/16 11:04 Thera-Plus - GT 5 ml DAILY KWAKU Administration Pantoprazole Sodium 40 mg 12/30/15 10:00 08/10/16 11:03 Protonix Packets For Oral Suspension - GT 40 mg DAILY KWAKU Administration Scopolamine HBr 1 patch 05/20/16 15:45 08/09/16 15:37 Transderm-Scop - TD 1 patch Q72H KWAKU Administration ASSESSMENT/PLAN: Patient is a 75 year old male with a past medical history of IDDM, HTN and inguinal hernia. He presented to the emergency room with a diverticular bleed s/p right hemicolectomy. His hospitalization was further complicated with a CVA with anoxic brain injury. He is s/p trach. He has a PEG tube placed. Cardiovascular: - Hypertension - Lisinopril and Amlodipine via Peg tube Neurology: Anoxic Brain Injury/CVA - mental status remains unchanged. Pulmonary: - tolerating oxygen at 2 liters nasal cannula and sats between 96-99% - next trach is scheduled to be changed next month - nebs as needed - chest xray ordered as pt was febrile overnight (tmax 100.5), chest xray with no significant changes when compared to 07/24/2016 ID: Fever of Unknown Origin - fever overnight (Tmax 100.5) - UA negative - UC and BC sent - chest xray unchanged when compared to xray on 07/24/16 - site around tube is not reddened, no pus or edema noted, source of fever? - await cultures - if spikes again, consult ID Integumentary: Multiple pressure ulcers - On a turning protocol q2 - could be source of fevers - monitor - on Prostat via Gtube Endocrine: Diabetes Mellitus - capillary glucose AC/HS - monitor - Continue Levemir F/E/N: Continue Glucerna 1.5 at 65cc/her with [id number] flushes NPO aspiration precautions HOB elevated at 45 degrees at all times DVT Proph: - SCD bilateral legs - chemical AC contraindicated secondary to GI bleed Bowel Regimen: Last BM 08/09/2016, on tube feeds Discharge Plan: pending DNR Visit Type - Emergency Visit Emergency Visit: No - New Patient This patient is new to me today: No - Critical Care Critical Care patient: No
[2016-08-10] MEDS: AMINO ACIDS/PROTEIN HYDROLYS SUGAR-FREE 30 ML PACKET PO SCH (16:58)
[2016-08-10] MEDS: INSULIN DETEMIR 100 UNITS/ML MDV SQ SCH (21:28)
[2016-08-11] MEDS: INSULIN SLIDING SCALE (NOVOLOG) 1 VIAL SQ SCH ×2 (06:32→18:41)
[2016-08-11 08:41] LABS: ALBUMIN 3.4 g/dl (3.4-5.0); ALK PHOS 116 U/L (45-117); ANION GAP 10 (8-16); BILIRUBIN,TOTAL 0.3 mg/dL (0.2-1.0); CALCIUM 9.2 mg/dL (8.5-10.1); CO2 29 mmol/L (21-32); CREATININE 0.9 mg/dL (0.7-1.3); GLUCOSE,RANDOM 146 mg/dL (74-106); SGOT/AST 20 U/L (15-37); SGPT/ALT 29 U/L (12-78); TOT PROT 8.1 g/dl (6.4-8.2)
[2016-08-11] MEDS: METOPROLOL TARTRATE 50 MG TABLET (FP) GT SCH ×2 (13:09→21:03)
[2016-08-11] MEDS: MULTIVITAMINS THERAPEUTIC GT SCH (13:09)
[2016-08-11] MEDS: LISINOPRIL 20 MG TABLET (FP) GT SCH (13:10)
[2016-08-11] MEDS: LACTOBACILLUS ACIDOPHILUS 1 EACH TAB (FP) PO SCH (13:10)
[2016-08-11] MEDS: PANTOPRAZOLE SOD 40 MG SUSPENSION PACKET GT SCH (13:10)
[2016-08-11] MEDS: amLODIPine BESYLATE 10 MG TABLET (FP) GT SCH (13:11)
[2016-08-11] MEDS: AMINO ACIDS/PROTEIN HYDROLYS SUGAR-FREE 30 ML PACKET PO SCH (13:11)
--- NOTE | 2016-08-11 14:28 | PN ---
Progress Note, Physician Chief Complaint: Non-verbal. Low grade fever. - Current Medication List Current Medications: Active Medications Acetaminophen (Tylenol Oral Solution -) 650 mg GT Q4H PRN PRN Reason: FEVER Last Admin: 06/01/16 01:47 Dose: 650 mg Amino Acids (Prostat Sugar-Free Packet -) 30 ml PO DAILY [facility] Last Admin: 08/11/16 13:11 Dose: 30 ml Amlodipine Besylate (Norvasc -) 10 mg GT DAILY [facility] Last Admin: 08/11/16 13:11 Dose: 10 mg Bacitracin (Bacitracin -) 1 applic TP DAILY [facility] Last Admin: 08/10/16 11:03 Dose: 1 applic Bacitracin/Polymyxin B Sulfate (Polysporin Ointment -) 1 applic TP BID [facility] Last Admin: 08/10/16 21:31 Dose: 1 applic Guaifenesin (Robitussin Dm -) 10 ml PO Q6H PRN PRN Reason: COUGH Last Admin: 08/02/16 10:38 Dose: 10 ml Insulin Aspart (Novolog Vial Sliding Scale -) 1 vial SQ BIDI [facility] PRN Reason: Protocol Last Admin: 08/11/16 06:32 Dose: 2 units Insulin Detemir (Levemir Vial) 14 units SQ HS [facility] Last Admin: 08/10/16 21:28 Dose: 14 units Lactobacillus Acidophilus (Bacid -) 1 tab PO DAILY [facility] Last Admin: 08/11/16 13:10 Dose: 1 tab Lisinopril (Prinivil -) 40 mg GT DAILY [facility] Last Admin: 08/11/16 13:10 Dose: 40 mg Metoprolol Tartrate (Lopressor -) 150 mg GT BID [facility] Last Admin: 08/11/16 13:09 Dose: 150 mg Metoprolol Tartrate (Lopressor Injection -) 5 mg IVPB Q6H PRN PRN Reason: HYPERTENSION Multivitamins (Thera-Plus -) 5 ml GT DAILY [facility] Last Admin: 08/11/16 13:09 Dose: 5 ml Pantoprazole Sodium (Protonix Packets For Oral Suspension -) 40 mg GT DAILY [facility] Last Admin: 08/11/16 13:10 Dose: 40 mg Scopolamine HBr (Transderm-Scop -) 1 patch TD Q72H [facility] Last Admin: 08/09/16 15:37 Dose: 1 patch - Objective Vital Signs: Vital Signs Temperature 99.2 F 08/11/16 10:23 Pulse Rate 50 L 08/11/16 12:31 Respiratory Rate 20 08/11/16 09:10 Blood Pressure 160/90 08/11/16 09:10 O2 Sat by Pulse Oximetry (%) 98 08/11/16 12:31 Constitutional: Yes: No Distress, Calm, Other (Non-verbal) Eyes: Yes: WNL HENT: Yes: Other (dry mucous mebranes) Neck: Yes: Supple, Other (trach) Cardiovascular: Yes: Regular Rate and Rhythm Respiratory: Yes: CTA Bilaterally Gastrointestinal: Yes: Normal Bowel Sounds, Soft (PEG tube) Extremities: Yes: Other (contracted, well perfused). No: Calf Tenderness Neurological: Yes: Alert Labs: CBC, BMP 08/10/16 06:45 08/11/16 06:15 INR, PTT INR 1.27 (0.82-1.09) H 08/07/16 08:06 Assessment/Plan Patient is a 75 year old male with a past medical history of IDDM, HTN and inguinal hernia. He presented to the emergency room with a diverticular bleed s/p right hemicolectomy. His hospitalization was further complicated with a CVA with anoxic brain injury. He is s/p trach. He has a PEG tube placed. Cardiovascular: - Hypertension - Lisinopril and Amlodipine via Peg tube Neurology: Anoxic Brain Injury/CVA - mental status remains unchanged, nonverbal at baseline Pulmonary: - tolerating oxygen at 2 liters nasal cannula - next trach is scheduled to be changed next month - nebs as needed ID: Fever of Unknown Origin - Recent fever, now with low grade. CXR no acute pathology, UA negative, blood culture negative to date - UA negative - chest xray unchanged when compared to xray on 07/24/16 - site around tube is not reddened. - await cultures - if spikes again, consult ID Multiple pressure ulcers - On a turning protocol q2 - could be source of fevers - monitor - on Prostat via Gtube Endocrine: Diabetes Mellitus - capillary glucose AC/HS - monitor - Continue Levemir F/E/N: Continue Glucerna 1.5 at 65cc/her with [id number] flushes NPO aspiration precautions HOB elevated at 45 degrees at all times, would start D5W for Na 147 DVT Proph: - SCD bilateral legs - chemical AC contraindicated secondary to GI bleed Discharge Plan: pending DNR Discharge Plan: pending DNR
[2016-08-11] MEDS: BACITRACIN/POLYMYXIN B SULFATE 15 GM TUBE TP SCH ×2 (18:40→21:05)
[2016-08-11] MEDS: BACITRACIN 15 GM TUBE TOPICAL OINTMENT TP SCH (18:41)
[2016-08-11] MEDS: INSULIN DETEMIR 100 UNITS/ML MDV SQ SCH (21:03)
[2016-08-12] MEDS: INSULIN SLIDING SCALE (NOVOLOG) 1 VIAL SQ SCH ×2 (06:23→16:57)
[2016-08-12 08:38] LABS: CALCIUM 9.3 mg/dL (8.5-10.1); CREATININE 0.8 mg/dL (0.7-1.3)
[2016-08-12] MEDS: PANTOPRAZOLE SOD 40 MG SUSPENSION PACKET GT SCH (09:23)
[2016-08-12] MEDS: MULTIVITAMINS THERAPEUTIC GT SCH (09:24)
[2016-08-12] MEDS: METOPROLOL TARTRATE 50 MG TABLET (FP) GT SCH ×2 (09:24→22:35)
[2016-08-12] MEDS: amLODIPine BESYLATE 10 MG TABLET (FP) GT SCH (09:24)
[2016-08-12] MEDS: AMINO ACIDS/PROTEIN HYDROLYS SUGAR-FREE 30 ML PACKET PO SCH (09:24)
[2016-08-12] MEDS: LISINOPRIL 20 MG TABLET (FP) GT SCH (09:24)
[2016-08-12] MEDS: BACITRACIN 15 GM TUBE TOPICAL OINTMENT TP SCH (09:25)
[2016-08-12] MEDS: BACITRACIN/POLYMYXIN B SULFATE 15 GM TUBE TP SCH ×2 (09:25→22:35)
--- NOTE | 2016-08-12 09:47 | PN ---
Progress Note, Physician Chief Complaint: non-verbal. No acute events overnights. Afebrile. - Current Medication List Current Medications: Active Medications Acetaminophen (Tylenol Oral Solution -) 650 mg GT Q4H PRN PRN Reason: FEVER Last Admin: 06/01/16 01:47 Dose: 650 mg Amino Acids (Prostat Sugar-Free Packet -) 30 ml PO DAILY [facility] Last Admin: 08/12/16 09:24 Dose: 30 ml Amlodipine Besylate (Norvasc -) 10 mg GT DAILY [facility] Last Admin: 08/12/16 09:24 Dose: 10 mg Bacitracin (Bacitracin -) 1 applic TP DAILY [facility] Last Admin: 08/12/16 09:25 Dose: 1 applic Bacitracin/Polymyxin B Sulfate (Polysporin Ointment -) 1 applic TP BID [facility] Last Admin: 08/12/16 09:25 Dose: 1 applic Guaifenesin (Robitussin Dm -) 10 ml PO Q6H PRN PRN Reason: COUGH Last Admin: 08/02/16 10:38 Dose: 10 ml Insulin Aspart (Novolog Vial Sliding Scale -) 1 vial SQ BIDI [facility] PRN Reason: Protocol Last Admin: 08/12/16 06:23 Dose: 2 units Insulin Detemir (Levemir Vial) 14 units SQ HS [facility] Last Admin: 08/11/16 21:03 Dose: 14 units Lactobacillus Acidophilus (Bacid -) 1 tab PO DAILY [facility] Last Admin: 08/11/16 13:10 Dose: 1 tab Lisinopril (Prinivil -) 40 mg GT DAILY [facility] Last Admin: 08/12/16 09:24 Dose: 40 mg Metoprolol Tartrate (Lopressor -) 150 mg GT BID [facility] Last Admin: 08/12/16 09:24 Dose: 150 mg Metoprolol Tartrate (Lopressor Injection -) 5 mg IVPB Q6H PRN PRN Reason: HYPERTENSION Multivitamins (Thera-Plus -) 5 ml GT DAILY [facility] Last Admin: 08/12/16 09:24 Dose: 5 ml Pantoprazole Sodium (Protonix Packets For Oral Suspension -) 40 mg GT DAILY [facility] Last Admin: 08/12/16 09:23 Dose: 40 mg Scopolamine HBr (Transderm-Scop -) 1 patch TD Q72H [facility] Last Admin: 08/09/16 15:37 Dose: 1 patch - Objective Vital Signs: Vital Signs Temperature 98.5 F 08/12/16 06:24 Pulse Rate 68 08/12/16 01:55 Respiratory Rate 20 08/11/16 23:00 Blood Pressure 141/79 08/11/16 23:00 O2 Sat by Pulse Oximetry (%) 98 08/12/16 01:55 Constitutional: Yes: Well Nourished, No Distress Eyes: Yes: Conjunctiva Clear HENT: Yes: Other (trach, lots of secretions) Neck: Yes: Supple Cardiovascular: Yes: Regular Rate and Rhythm Respiratory: Yes: CTA Bilaterally Gastrointestinal: Yes: Normal Bowel Sounds (PEG), Soft Extremities: Yes: Other (warm, dry, contracted) Edema: No Wound/Incision: Yes: Other (sacral ulcers) Labs: CBC, BMP 08/10/16 06:45 08/12/16 04:14 INR, PTT INR 1.27 (0.82-1.09) H 08/07/16 08:06 Assessment/Plan Patient is a 75 year old male with a past medical history of IDDM, HTN and inguinal hernia. He presented to the emergency room with a diverticular bleed s/p right hemicolectomy. His hospitalization was further complicated with a CVA with anoxic brain injury. He is s/p trach. He has a PEG tube placed. Cardiovascular: - Hypertension - Lisinopril and Amlodipine via Peg tube Neurology: Anoxic Brain Injury/CVA - mental status remains unchanged, nonverbal at baseline Pulmonary: - tolerating oxygen at 2 liters nasal cannula - next trach is scheduled to be changed next month - nebs as needed ID: Fever of Unknown Origin -Earlier this week had low grade fevers, CXR no acute pathology, UA negative, blood culture negative to date - UA negative - chest xray unchanged when compared to xray on 07/24/16 - site around tube is not reddened. - await cultures - if spikes again, consult ID Multiple pressure ulcers - On a turning protocol q2 - could be source of fevers - monitor - on Prostat via Gtube Endocrine: Diabetes Mellitus - capillary glucose AC/HS - monitor - Continue Levemir F/E/N: Continue Glucerna 1.5 at 65cc/her with [id number] flushes NPO aspiration precautions HOB elevated at 45 degrees at all times, discontinued IV fluids as Na is now normal DVT Proph: - SCD bilateral legs - chemical AC contraindicated secondary to GI bleed Discharge Plan: pending DNR
[2016-08-12] MEDS: LACTOBACILLUS ACIDOPHILUS 1 EACH TAB (FP) PO SCH (11:33)
[2016-08-12] MEDS: SCOPOLAMINE HYDROBROMIDE 1 PATCH PATCH.TD72 TD SCH (16:51)
[2016-08-12] MEDS: INSULIN DETEMIR 100 UNITS/ML MDV SQ SCH (22:34)
[2016-08-13] MEDS: INSULIN SLIDING SCALE (NOVOLOG) 1 VIAL SQ SCH ×2 (06:58→16:12)
[2016-08-13] MEDS: BACITRACIN/POLYMYXIN B SULFATE 15 GM TUBE TP SCH ×2 (10:11→22:32)
[2016-08-13] MEDS: amLODIPine BESYLATE 10 MG TABLET (FP) GT SCH (10:31)
[2016-08-13] MEDS: METOPROLOL TARTRATE 50 MG TABLET (FP) GT SCH ×2 (10:31→22:32)
[2016-08-13] MEDS: LACTOBACILLUS ACIDOPHILUS 1 EACH TAB (FP) PO SCH (10:31)
[2016-08-13] MEDS: AMINO ACIDS/PROTEIN HYDROLYS SUGAR-FREE 30 ML PACKET PO SCH (10:32)
[2016-08-13] MEDS: LISINOPRIL 20 MG TABLET (FP) GT SCH (10:32)
[2016-08-13] MEDS: PANTOPRAZOLE SOD 40 MG SUSPENSION PACKET GT SCH (10:32)
[2016-08-13] MEDS: MULTIVITAMINS THERAPEUTIC GT SCH (10:32)
[2016-08-13] MEDS: BACITRACIN 15 GM TUBE TOPICAL OINTMENT TP SCH (14:06)
--- NOTE | 2016-08-13 16:04 | PN ---
Progress Note, Physician Chief Complaint: Non-verbal. No acute events overnight. Low grade fever again today - Current Medication List Current Medications: Active Medications Acetaminophen (Tylenol Oral Solution -) 650 mg GT Q4H PRN PRN Reason: FEVER Last Admin: 06/01/16 01:47 Dose: 650 mg Amino Acids (Prostat Sugar-Free Packet -) 30 ml PO DAILY [facility] Last Admin: 08/13/16 10:32 Dose: 30 ml Amlodipine Besylate (Norvasc -) 10 mg GT DAILY [facility] Last Admin: 08/13/16 10:31 Dose: 10 mg Bacitracin (Bacitracin -) 1 applic TP DAILY [facility] Last Admin: 08/13/16 14:06 Dose: 1 applic Bacitracin/Polymyxin B Sulfate (Polysporin Ointment -) 1 applic TP BID [facility] Last Admin: 08/13/16 10:11 Dose: 1 applic Guaifenesin (Robitussin Dm -) 10 ml PO Q6H PRN PRN Reason: COUGH Last Admin: 08/02/16 10:38 Dose: 10 ml Insulin Aspart (Novolog Vial Sliding Scale -) 1 vial SQ BIDI [facility] PRN Reason: Protocol Last Admin: 08/13/16 06:58 Dose: 2 units Insulin Detemir (Levemir Vial) 14 units SQ HS [facility] Last Admin: 08/12/16 22:34 Dose: 14 units Lactobacillus Acidophilus (Bacid -) 1 tab PO DAILY [facility] Last Admin: 08/13/16 10:31 Dose: 1 tab Lisinopril (Prinivil -) 40 mg GT DAILY [facility] Last Admin: 08/13/16 10:32 Dose: 40 mg Metoprolol Tartrate (Lopressor -) 150 mg GT BID [facility] Last Admin: 08/13/16 10:31 Dose: 150 mg Metoprolol Tartrate (Lopressor Injection -) 5 mg IVPB Q6H PRN PRN Reason: HYPERTENSION Multivitamins (Thera-Plus -) 5 ml GT DAILY [facility] Last Admin: 08/13/16 10:32 Dose: 5 ml Pantoprazole Sodium (Protonix Packets For Oral Suspension -) 40 mg GT DAILY [facility] Last Admin: 08/13/16 10:32 Dose: 40 mg Scopolamine HBr (Transderm-Scop -) 1 patch TD Q72H [facility] Last Admin: 08/12/16 16:51 Dose: 1 patch - Objective Vital Signs: Vital Signs Temperature 99.5 F 08/13/16 15:14 Pulse Rate 63 08/13/16 15:14 Respiratory Rate 20 08/13/16 15:14 Blood Pressure 145/82 08/13/16 15:14 O2 Sat by Pulse Oximetry (%) 96 08/13/16 10:00 Constitutional: Yes: No Distress Eyes: Yes: WNL, EOM Intact HENT: Yes: WNL, Other (lots of secretions) Neck: Yes: Trachea Midline Cardiovascular: Yes: Regular Rate and Rhythm Respiratory: Yes: CTA Bilaterally Gastrointestinal: Yes: Normal Bowel Sounds, Soft (PEG) Extremities: Yes: Other (contracted) Edema: No Peripheral Pulses WNL: Yes Neurological: Yes: Alert, Oriented (nonverbal) Labs: CBC, BMP 08/10/16 06:45 08/12/16 04:14 INR, PTT INR 1.27 (0.82-1.09) H 08/07/16 08:06 Assessment/Plan Patient is a 75 year old male with a past medical history of IDDM, HTN and inguinal hernia, he presented to the emergency room with a diverticular bleed s/ p right hemicolectomy. His hospitalization was further complicated with a CVA with anoxic brain injury. He is s/p trach. He has a PEG tube placed. ID: Fever of Unknown Origin -Earlier this week had low grade fevers, CXR no acute pathology, UA negative, blood culture negative to date -Although appears non-toxic he continues to have low grade fevers, most recently 99.5 today. Can re-order CXR, UA, hold off on blood cultures for now unless temp greater than 1004. - site around tube is not reddened. -have asked ID to weight. Pt is unable to give additional ROS as he is non- verbal. Also with multiple sacral ulcers. -urinating well, bladder scan 46cc earlier today Cardiovascular: - Hypertension - Lisinopril and Amlodipine via Peg tube Neurology: Anoxic Brain Injury/CVA - mental status remains unchanged, nonverbal at baseline Pulmonary: - tolerating oxygen at 2 liters nasal cannula, mouth care - next trach is scheduled to be changed next month - nebs as needed Multiple pressure ulcers - On a turning protocol q2 - could be source of fevers - monitor - on Prostat via Gtube Endocrine: Diabetes Mellitus - capillary glucose AC/HS - monitor - Continue Levemir F/E/N: Continue Glucerna 1.5 at 65cc/her with [id number] flushes NPO aspiration precautions HOB elevated at 45 degrees at all times, discontinued IV fluids as Na is now normal DVT Proph: - SCD bilateral legs - chemical AC contraindicated secondary to GI bleed Discharge Plan: pending DNR
[2016-08-13] MEDS: INSULIN DETEMIR 100 UNITS/ML MDV SQ SCH (22:31)
[2016-08-14] MEDS: INSULIN SLIDING SCALE (NOVOLOG) 1 VIAL SQ SCH ×2 (07:00→18:08)
[2016-08-14 07:41] LABS: MCH 27.7 pg (25.7-33.7); MCHC 31.8 g/dl (32.0-35.9); MEAN CELL VOLUME 87.1 fl (80-96); MEAN PLT VOLUME 9.2 fl (7.5-11.1); PLATELET COUNT 190 K/MM3 (134-434); RDW 14.5 % (11.9-15.9); WHITE BLOOD COUNT 7.3 K/mm3 (4.0-10.0)
[2016-08-14 07:51] LABS: INR 1.2 (0.82-1.09); PROTHROMBIN TIME (PATIENT) 13.3 SEC (9.4-12.5)
[2016-08-14 08:08] LABS: CALCIUM 9.4 mg/dL (8.5-10.1); MAGNESIUM 2.4 mg/dL (1.8-2.4)
[2016-08-14 08:09] LABS: CREATININE 0.9 mg/dL (0.7-1.3)
--- NOTE | 2016-08-14 10:21 | PN ---
Physical Exam: SUBJECTIVE: Patient seen and examined. CXR since 08/10 shows left base infiltrate OBJECTIVE: Vital Signs Period Temp Pulse Resp BP Sys/Santiago Pulse Ox Last 24 Hr 98.0 F-99.5 F 61-79 16-20 132-145/71-86 96-96 Constitutional: No Distress, nonverbal Eyes: WNL, EOM Intact HENT: WNL, Other (lots of secretions) Neck: Trachea Midline Cardiovascular: Regular Rate and Rhythm Respiratory: CTA Bilaterally Gastrointestinal: Normal Bowel Sounds, Soft (PEG) Edema: No Peripheral Pulses WNL: Yes Neurological: Alert, Oriented, grasps my hand Labs: Laboratory Results - last 24 hr 08/13/16 08/14/16 08/14/16 16:11 06:00 06:00 WBC 7.3 RBC 3.95 L Hgb 10.9 L Hct 34.4 L MCV 87.1 MCHC 31.8 L RDW 14.5 Plt Count 190 MPV 9.2 INR 1.20 H Sodium Potassium Chloride Carbon Dioxide Anion Gap BUN Creatinine POC Glucometer 125 Random Glucose Calcium Magnesium 08/14/16 08/14/16 06:00 06:57 WBC RBC Hgb Hct MCV MCHC RDW Plt Count MPV INR Sodium 144 Potassium 4.0 Chloride 106 Carbon Dioxide 29 Anion Gap 9 BUN 24 H Creatinine 0.9 POC Glucometer 164 Random Glucose 152 H Calcium 9.4 Magnesium 2.4 Active Medications Generic Name Dose Route Start Last Admin Trade Name Freq PRN Reason Stop Dose Admin Acetaminophen 650 mg 05/26/16 14:23 06/01/16 01:47 Tylenol Oral Solution - GT 650 mg Q4H PRN Administration FEVER Amino Acids 30 ml 06/28/16 10:00 08/13/16 10:32 Prostat Sugar-Free Packet - PO 30 ml DAILY [facility] Administration Amlodipine Besylate 10 mg 12/30/15 10:00 08/13/16 10:31 Norvasc - GT 10 mg DAILY [facility] Administration Bacitracin 1 applic 08/09/16 16:15 08/13/16 14:06 Bacitracin - TP 1 applic DAILY [facility] Administration Bacitracin/Polymyxin B Sulfate 1 applic 07/25/16 22:00 08/13/16 22:32 Polysporin Ointment - TP 1 applic BID [facility] Administration Guaifenesin 10 ml 12/29/15 10:43 08/02/16 10:38 Robitussin Dm - PO 10 ml Q6H PRN Administration COUGH Insulin Aspart 1 vial 01/28/16 16:30 08/14/16 07:00 Novolog Vial Sliding Scale - SQ 2 units BIDI [facility] Administration Protocol Insulin Detemir 14 units 05/05/16 22:00 08/13/16 22:31 Levemir Vial SQ 14 units HS [facility] Administration Lactobacillus Acidophilus 1 tab 12/30/15 10:00 08/13/16 10:31 Bacid - PO 1 tab DAILY [facility] Administration Lisinopril 40 mg 12/30/15 10:00 08/13/16 10:32 Prinivil - GT 40 mg DAILY [facility] Administration Metoprolol Tartrate 150 mg 12/29/15 22:00 08/13/16 22:32 Lopressor - GT 150 mg BID [facility] Administration Metoprolol Tartrate 5 mg 12/29/15 10:43 Lopressor Injection - IVPB Q6H PRN HYPERTENSION Multivitamins 5 ml 12/30/15 10:00 08/13/16 10:32 Thera-Plus - GT 5 ml DAILY [facility] Administration Pantoprazole Sodium 40 mg 12/30/15 10:00 08/13/16 10:32 Protonix Packets For Oral Suspension - GT 40 mg DAILY [facility] Administration Scopolamine HBr 1 patch 05/20/16 15:45 08/12/16 16:51 Transderm-Scop - TD 1 patch Q72H [facility] Administration ASSESSMENT/PLAN: Low grade fevers, left base infiltrate -Earlier this week had low grade fevers, initial CXR did not show acute pathology--> repeat done 08/13 showed new left base infiltrate. Will give Zosyn , Vanco X1 and await ID approval for further dosing, already on aspiration precaution. Had lots of secretions earlier this weekend, cont with mouth care He continues to appear non-toxic and O2 have been stable Cardiovascular: - Hypertension - Lisinopril and Amlodipine via Peg tube Neurology: Anoxic Brain Injury/CVA - mental status remains unchanged, nonverbal at baseline Pulmonary: - tolerating oxygen at 2 liters nasal cannula, mouth care - next trach is scheduled to be changed next month - nebs as needed Multiple pressure ulcers - On a turning protocol q2 - on Prostat via Gtube Endocrine: Diabetes Mellitus - capillary glucose AC/HS - monitor - Continue Levemir F/E/N: Continue Glucerna 1.5 at 65cc/her with [id number] flushes NPO aspiration precautions HOB elevated at 45 degrees at all times, discontinued IV fluids as Na is now normal DVT Proph: - SCD bilateral legs - chemical AC contraindicated secondary to GI bleed Discharge Plan: pending DNR Visit Type - Emergency Visit Emergency Visit: Yes ED Registration Date: 06/27/15 Care time: The patient presented to the Emergency Department on the above date and was hospitalized for further evaluation of their emergent condition. - New Patient This patient is new to me today: No - Critical Care Critical Care patient: No
[2016-08-14] MEDS: METOPROLOL TARTRATE 50 MG TABLET (FP) GT SCH ×2 (12:29→23:07)
[2016-08-14] MEDS: BACITRACIN 15 GM TUBE TOPICAL OINTMENT TP SCH (12:30)
[2016-08-14] MEDS: LISINOPRIL 20 MG TABLET (FP) GT SCH (12:30)
[2016-08-14] MEDS: amLODIPine BESYLATE 10 MG TABLET (FP) GT SCH (12:30)
[2016-08-14] MEDS: BACITRACIN/POLYMYXIN B SULFATE 15 GM TUBE TP SCH ×2 (12:32→23:07)
[2016-08-14] MEDS: MULTIVITAMINS THERAPEUTIC GT SCH (12:32)
[2016-08-14] MEDS: PANTOPRAZOLE SOD 40 MG SUSPENSION PACKET GT SCH (12:32)
[2016-08-14] MEDS: AMINO ACIDS/PROTEIN HYDROLYS SUGAR-FREE 30 ML PACKET PO SCH (12:32)
[2016-08-14] MEDS: LACTOBACILLUS ACIDOPHILUS 1 EACH TAB (FP) PO SCH (14:21)
--- NOTE | 2016-08-14 14:38 | PN ---
Progress Note (short form) - Note Progress Note: asked to f/u for fever earlier this week low grade now resolved NAD Vital Signs Period Temp Pulse Resp BP Sys/Santiago Pulse Ox Last 24 Hr 98.0 F-99.5 F 61-79 16-20 132-145/71-100 96-96 cor-rrr lungs decreased bs at bases abd soft,nt +GT ext no edema +GT CBC, BMP 08/14/16 06:00 08/14/16 06:00 Microbiology 08/09/16 22:48 Blood - Peripheral Venous Blood Culture - Preliminary NO GROWTH OBTAINED AFTER 96 HOURS, INCUBATION TO CONTINUE FOR 1 DAYS. 08/09/16 22:48 Blood - Peripheral Venous Blood Culture - Preliminary NO GROWTH OBTAINED AFTER 96 HOURS, INCUBATION TO CONTINUE FOR 1 DAYS. cxray reviewed- different technique, poor inspiration Current Medications Acetaminophen (Tylenol Oral Solution -) 650 mg GT Q4H PRN PRN Reason: FEVER Last Admin: 06/01/16 01:47 Dose: 650 mg Amino Acids (Prostat Sugar-Free Packet -) 30 ml PO DAILY [facility] Last Admin: 08/14/16 12:32 Dose: 30 ml Amlodipine Besylate (Norvasc -) 10 mg GT DAILY [facility] Last Admin: 08/14/16 12:30 Dose: 10 mg Bacitracin (Bacitracin -) 1 applic TP DAILY [facility] Last Admin: 08/14/16 12:30 Dose: 1 applic Bacitracin/Polymyxin B Sulfate (Polysporin Ointment -) 1 applic TP BID [facility] Last Admin: 08/14/16 12:32 Dose: 1 applic Guaifenesin (Robitussin Dm -) 10 ml PO Q6H PRN PRN Reason: COUGH Last Admin: 08/02/16 10:38 Dose: 10 ml Insulin Aspart (Novolog Vial Sliding Scale -) 1 vial SQ BIDI [facility] PRN Reason: Protocol Last Admin: 08/14/16 07:00 Dose: 2 units Insulin Detemir (Levemir Vial) 14 units SQ HS [facility] Last Admin: 08/13/16 22:31 Dose: 14 units Lactobacillus Acidophilus (Bacid -) 1 tab PO DAILY [facility] Last Admin: 08/14/16 14:21 Dose: 1 tab Lisinopril (Prinivil -) 40 mg GT DAILY [facility] Last Admin: 08/14/16 12:30 Dose: 40 mg Metoprolol Tartrate (Lopressor -) 150 mg GT BID [facility] Last Admin: 08/14/16 12:29 Dose: 150 mg Metoprolol Tartrate (Lopressor Injection -) 5 mg IVPB Q6H PRN PRN Reason: HYPERTENSION Multivitamins (Thera-Plus -) 5 ml GT DAILY [facility] Last Admin: 08/14/16 12:32 Dose: 5 ml Pantoprazole Sodium (Protonix Packets For Oral Suspension -) 40 mg GT DAILY [facility] Last Admin: 08/14/16 12:32 Dose: 40 mg Scopolamine HBr (Transderm-Scop -) 1 patch TD Q72H [facility] Last Admin: 08/12/16 16:51 Dose: 1 patch a/p doubt pneumonia- observe off antibiotics
[2016-08-14] MEDS: INSULIN DETEMIR 100 UNITS/ML MDV SQ SCH (23:07)
[2016-08-15] MEDS: INSULIN SLIDING SCALE (NOVOLOG) 1 VIAL SQ SCH ×2 (06:12→18:16)
[2016-08-15 07:33] LABS: CALCIUM 9.5 mg/dL (8.5-10.1); CREATININE 0.9 mg/dL (0.7-1.3); MAGNESIUM 2.5 mg/dL (1.8-2.4)
[2016-08-15 07:35] LABS: MCHC 32.5 g/dl (32.0-35.9); MEAN CELL VOLUME 86.4 fl (80-96); MEAN PLT VOLUME 9.4 fl (7.5-11.1); PLATELET COUNT 180 K/MM3 (134-434); RDW 14.9 % (11.9-15.9); WHITE BLOOD COUNT 7.6 K/mm3 (4.0-10.0)
[2016-08-15] MEDS: METOPROLOL TARTRATE 50 MG TABLET (FP) GT SCH ×2 (11:00→22:20)
[2016-08-15] MEDS: LISINOPRIL 20 MG TABLET (FP) GT SCH (11:00)
[2016-08-15] MEDS: PANTOPRAZOLE SOD 40 MG SUSPENSION PACKET GT SCH (11:22)
[2016-08-15] MEDS: amLODIPine BESYLATE 10 MG TABLET (FP) GT SCH (11:22)
[2016-08-15] MEDS: LACTOBACILLUS ACIDOPHILUS 1 EACH TAB (FP) PO SCH (11:24)
[2016-08-15] MEDS: AMINO ACIDS/PROTEIN HYDROLYS SUGAR-FREE 30 ML PACKET PO SCH (11:25)
[2016-08-15] MEDS: MULTIVITAMINS THERAPEUTIC GT SCH (11:25)
--- NOTE | 2016-08-15 11:41 | PN ---
Progress Note (short form) - Note Progress Note: Subjective: The patient was seen and examined at the bedside, non-verbal. Back on O2 via NC, continue to wean Current Medications Generic Name Dose Route Start Last Admin Trade Name Freq PRN Reason Stop Dose Admin Acetaminophen 650 mg 05/26/16 14:23 06/01/16 01:47 Tylenol Oral Solution - GT 650 mg Q4H PRN Administration FEVER Amino Acids 30 ml 06/28/16 10:00 08/15/16 11:25 Prostat Sugar-Free Packet - PO 30 ml DAILY KWAKU Administration Amlodipine Besylate 10 mg 12/30/15 10:00 08/15/16 11:22 Norvasc - GT 10 mg DAILY KWAKU Administration Bacitracin 1 applic 08/09/16 16:15 08/14/16 12:30 Bacitracin - TP 1 applic DAILY KWAKU Administration Bacitracin/Polymyxin B Sulfate 1 applic 07/25/16 22:00 08/14/16 23:07 Polysporin Ointment - TP 1 applic BID KWAKU Administration Guaifenesin 10 ml 12/29/15 10:43 08/02/16 10:38 Robitussin Dm - PO 10 ml Q6H PRN Administration COUGH Insulin Aspart 1 vial 01/28/16 16:30 08/15/16 06:12 Novolog Vial Sliding Scale - SQ 2 units BIDI KWAKU Administration Protocol Insulin Detemir 14 units 05/05/16 22:00 08/14/16 23:07 Levemir Vial SQ 14 units HS KWAKU Administration Lactobacillus Acidophilus 1 tab 12/30/15 10:00 08/15/16 11:24 Bacid - PO 1 tab DAILY KWAKU Administration Lisinopril 40 mg 12/30/15 10:00 08/15/16 11:00 Prinivil - GT 40 mg DAILY KWAKU Administration Metoprolol Tartrate 150 mg 12/29/15 22:00 08/15/16 11:00 Lopressor - GT 150 mg BID KWAKU Administration Metoprolol Tartrate 5 mg 12/29/15 10:43 Lopressor Injection - IVPB Q6H PRN HYPERTENSION Multivitamins 5 ml 12/30/15 10:00 08/15/16 11:25 Thera-Plus - GT 5 ml DAILY KWAKU Administration Pantoprazole Sodium 40 mg 12/30/15 10:00 08/15/16 11:22 Protonix Packets For Oral Suspension - GT 40 mg DAILY KWAKU Administration Scopolamine HBr 1 patch 05/20/16 15:45 08/12/16 16:51 Transderm-Scop - TD 1 patch Q72H KWAKU Administration Objective: Vital Signs Period Temp Pulse Resp BP Sys/Santiago Pulse Ox Last 24 Hr 97.0 F-99.8 F 68-96 18-20 137-159/79-88 97-97 Physical Exam: General: No acute distress Neuro: Eye tracking to verbal stimulus Pulm: Tach collar capped on RA, CTA anteriorly CV: RRR, S1S2 Abd: Soft, non-distended. Normoactive bowel sounds. Peg tube c/d/i Ext: Warm, well-perfused. 2+ DP/PT bilaterally CBCD WBC 7.6 K/mm3 (4.0-10.0) 08/15/16 06:45 RBC 3.84 M/mm3 (4.00-5.60) L 08/15/16 06:45 Hgb 10.8 GM/dL (11.7-16.9) L 08/15/16 06:45 Hct 33.2 % (35.4-49) L 08/15/16 06:45 MCV 86.4 fl (80-96) 08/15/16 06:45 MCHC 32.5 g/dl (32.0-35.9) 08/15/16 06:45 RDW 14.9 % (11.9-15.9) 08/15/16 06:45 Plt Count 180 K/MM3 (134-434) 08/15/16 06:45 MPV 9.4 fl (7.5-11.1) 08/15/16 06:45 CMP Sodium 143 mmol/L (136-145) 08/15/16 06:45 Potassium 3.8 mmol/L (3.5-5.1) 08/15/16 06:45 Chloride 106 mmol/L (98-107) 08/15/16 06:45 Carbon Dioxide 31 mmol/L (21-32) 08/15/16 06:45 Anion Gap 6 (8-16) L 08/15/16 06:45 BUN 23 mg/dL (7-18) H 08/15/16 06:45 Creatinine 0.9 mg/dL (0.7-1.3) 08/15/16 06:45 Creat Clearance w eGFR > 60 (>60) 08/11/16 06:15 Random Glucose 151 mg/dL (74-106) H 08/15/16 06:45 Calcium 9.5 mg/dL (8.5-10.1) 08/15/16 06:45 Total Bilirubin 0.3 mg/dL (0.2-1.0) 08/11/16 06:15 AST 20 U/L (15-37) 08/11/16 06:15 ALT 29 U/L (12-78) 08/11/16 06:15 Alkaline Phosphatase 116 U/L (45-117) 08/11/16 06:15 Total Protein 8.1 g/dl (6.4-8.2) 08/11/16 06:15 Albumin 3.4 g/dl (3.4-5.0) 08/11/16 06:15 CARDIAC ENZYMES Creatine Kinase 62 IU/L (38-174) 06/28/15 09:35 Troponin I 0.07 ng/ml (0.03-0.5) D 07/09/15 05:00 Microbiology 08/09/16 22:48 Blood - Peripheral Venous Blood Culture - Final NO GROWTH AFTER 5 DAYS INCUBATION 08/09/16 22:48 Blood - Peripheral Venous Blood Culture - Final NO GROWTH AFTER 5 DAYS INCUBATION 08/10/16 05:01 Urine - Urine - Catheterized Urine Culture - Final NO GROWTH OBTAINED Assessment: 75 year old male with PMHx of HTN, IDDM, inguinal hernia who presented to the ED with diverticular bleed s/p Righ hemicolectomy with 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 Plan: 1. Anoxic brain injury s/p brainstem CVAs - Mental status unchanged 2. Respiratory failure secondary to anoxic brain injury - Cont O2 via nasal cannula (silicone Portex): Next trach change 08/30 - Duonebs PRN 3. HTN - Hold metoprolol due to periods of bradycardia - EKG with marked sinus arrhythmia, no significant change found when compared to prior EKG - Continue lisinopril, amlodipine 4. Multiple pressure ulcers - Turn and position q2h 5. IDDM - Continue Levemir at 14u sq qhs - ISS BGM ACHS 6. F/E/N: - 65 ml/hr Glucerna 1.5, 50 ml/hr water flushes - Prostat daily 7. Prophylaxis: - SCDs bilaterally - No chemical anticoagulation 2/2 spontaneous gluteal bleed and severe GI bleed - Functional quadriplegia CODE STATUS: DNR Visit type - Emergency Visit Emergency Visit: Yes ED Registration Date: 06/27/15 Care time: The patient presented to the Emergency Department on the above date and was hospitalized for further evaluation of their emergent condition. - New Patient This patient is new to me today: No - Critical Care Critical Care patient: No
[2016-08-15] MEDS: BACITRACIN 15 GM TUBE TOPICAL OINTMENT TP SCH (12:00)
[2016-08-15] MEDS: BACITRACIN/POLYMYXIN B SULFATE 15 GM TUBE TP SCH ×2 (12:00→22:30)
[2016-08-15] MEDS: SCOPOLAMINE HYDROBROMIDE 1 PATCH PATCH.TD72 TD SCH (18:13)
[2016-08-15] MEDS: INSULIN DETEMIR 100 UNITS/ML MDV SQ SCH (22:29)
[2016-08-16] MEDS: INSULIN SLIDING SCALE (NOVOLOG) 1 VIAL SQ SCH ×2 (06:03→18:16)
[2016-08-16] MEDS: METOPROLOL TARTRATE 50 MG TABLET (FP) GT SCH ×2 (11:02→22:58)
[2016-08-16] MEDS: LACTOBACILLUS ACIDOPHILUS 1 EACH TAB (FP) PO SCH (11:02)
[2016-08-16] MEDS: LISINOPRIL 20 MG TABLET (FP) GT SCH (11:03)
[2016-08-16] MEDS: amLODIPine BESYLATE 10 MG TABLET (FP) GT SCH (11:03)
[2016-08-16] MEDS: AMINO ACIDS/PROTEIN HYDROLYS SUGAR-FREE 30 ML PACKET PO SCH (11:04)
[2016-08-16] MEDS: PANTOPRAZOLE SOD 40 MG SUSPENSION PACKET GT SCH (11:04)
[2016-08-16] MEDS: MULTIVITAMINS THERAPEUTIC GT SCH (11:04)
[2016-08-16] MEDS: BACITRACIN/POLYMYXIN B SULFATE 15 GM TUBE TP SCH ×2 (11:35→23:58)
[2016-08-16] MEDS: BACITRACIN 15 GM TUBE TOPICAL OINTMENT TP SCH (11:35)
--- NOTE | 2016-08-16 11:52 | PN ---
Progress Note (short form) - Note Progress Note: Subjective: The patient was seen and examined at the bedside, non-verbal. Tolerating room air well. Current Medications Generic Name Dose Route Start Last Admin Trade Name Freq PRN Reason Stop Dose Admin Acetaminophen 650 mg 05/26/16 14:23 06/01/16 01:47 Tylenol Oral Solution - GT 650 mg Q4H PRN Administration FEVER Amino Acids 30 ml 06/28/16 10:00 08/16/16 11:04 Prostat Sugar-Free Packet - PO 30 ml DAILY KWAKU Administration Amlodipine Besylate 10 mg 12/30/15 10:00 08/16/16 11:03 Norvasc - GT 10 mg DAILY KWAKU Administration Bacitracin 1 applic 08/09/16 16:15 08/16/16 11:35 Bacitracin - TP 1 applic DAILY KWAKU Administration Bacitracin/Polymyxin B Sulfate 1 applic 07/25/16 22:00 08/16/16 11:35 Polysporin Ointment - TP 1 applic BID KWAKU Administration Guaifenesin 10 ml 12/29/15 10:43 08/02/16 10:38 Robitussin Dm - PO 10 ml Q6H PRN Administration COUGH Insulin Aspart 1 vial 01/28/16 16:30 08/16/16 06:03 Novolog Vial Sliding Scale - SQ Not Given BIDI [facility] Protocol Insulin Detemir 14 units 05/05/16 22:00 08/15/16 22:29 Levemir Vial SQ 14 units HS KWAKU Administration Lactobacillus Acidophilus 1 tab 12/30/15 10:00 08/16/16 11:02 Bacid - PO 1 tab DAILY KWAKU Administration Lisinopril 40 mg 12/30/15 10:00 08/16/16 11:03 Prinivil GT 40 mg DAILY KWAKU Administration Metoprolol Tartrate 150 mg 12/29/15 22:00 08/16/16 11:02 Lopressor - GT 150 mg BID KWAKU Administration Metoprolol Tartrate 5 mg 12/29/15 10:43 Lopressor Injection - IVPB Q6H PRN HYPERTENSION Multivitamins 5 ml 12/30/15 10:00 08/16/16 11:04 Thera-Plus - GT 5 ml DAILY KWAKU Administration Pantoprazole Sodium 40 mg 12/30/15 10:00 08/16/16 11:04 Protonix Packets For Oral Suspension - GT 40 mg DAILY KWAKU Administration Scopolamine HBr 1 patch 05/20/16 15:45 08/15/16 18:13 Transderm-Scop - TD 1 patch Q72H KWAKU Administration Objective: Vital Signs Period Temp Pulse Resp BP Sys/Santiago Pulse Ox Last 24 Hr 98.1 F-98.9 F 70-82 17-18 107-143/64-76 93-95 Physical Exam: General: No acute distress Neuro: Eye tracking to verbal stimulus Pulm: Tach collar capped on RA, CTA anteriorly CV: RRR, S1S2 Abd: Soft, non-distended. Normoactive bowel sounds. Peg tube c/d/i Ext: Warm, well-perfused. 2+ DP/PT bilaterally CBCD WBC 7.6 K/mm3 (4.0-10.0) 08/15/16 06:45 RBC 3.84 M/mm3 (4.00-5.60) L 08/15/16 06:45 Hgb 10.8 GM/dL (11.7-16.9) L 08/15/16 06:45 Hct 33.2 % (35.4-49) L 08/15/16 06:45 MCV 86.4 fl (80-96) 08/15/16 06:45 MCHC 32.5 g/dl (32.0-35.9) 08/15/16 06:45 RDW 14.9 % (11.9-15.9) 08/15/16 06:45 Plt Count 180 K/MM3 (134-434) 08/15/16 06:45 MPV 9.4 fl (7.5-11.1) 08/15/16 06:45 CMP Sodium 143 mmol/L (136-145) 08/15/16 06:45 Potassium 3.8 mmol/L (3.5-5.1) 08/15/16 06:45 Chloride 106 mmol/L (98-107) 08/15/16 06:45 Carbon Dioxide 31 mmol/L (21-32) 08/15/16 06:45 Anion Gap 6 (8-16) L 08/15/16 06:45 BUN 23 mg/dL (7-18) H 08/15/16 06:45 Creatinine 0.9 mg/dL (0.7-1.3) 08/15/16 06:45 Creat Clearance w eGFR > 60 (>60) 08/11/16 06:15 Random Glucose 151 mg/dL (74-106) H 08/15/16 06:45 Calcium 9.5 mg/dL (8.5-10.1) 08/15/16 06:45 Total Bilirubin 0.3 mg/dL (0.2-1.0) 08/11/16 06:15 AST 20 U/L (15-37) 08/11/16 06:15 ALT 29 U/L (12-78) 08/11/16 06:15 Alkaline Phosphatase 116 U/L (45-117) 08/11/16 06:15 Total Protein 8.1 g/dl (6.4-8.2) 08/11/16 06:15 Albumin 3.4 g/dl (3.4-5.0) 08/11/16 06:15 CARDIAC ENZYMES Creatine Kinase 62 IU/L (38-174) 06/28/15 09:35 Troponin I 0.07 ng/ml (0.03-0.5) D 07/09/15 05:00 Microbiology 08/09/16 22:48 Blood - Peripheral Venous Blood Culture - Final NO GROWTH AFTER 5 DAYS INCUBATION 08/09/16 22:48 Blood - Peripheral Venous Blood Culture - Final NO GROWTH AFTER 5 DAYS INCUBATION 08/10/16 05:01 Urine - Urine - Catheterized Urine Culture - Final NO GROWTH OBTAINED Assessment: 75 year old male with PMHx of HTN, IDDM, inguinal hernia who presented to the ED with diverticular bleed s/p Righ hemicolectomy with 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 Plan: 1. Anoxic brain injury s/p brainstem CVAs - Mental status unchanged 2. Respiratory failure secondary to anoxic brain injury - Cont O2 via nasal cannula (silicone Portex): Next trach change 08/30 - Duonebs PRN 3. HTN - Hold metoprolol due to periods of bradycardia - EKG with marked sinus arrhythmia, no significant change found when compared to prior EKG - Continue lisinopril, amlodipine 4. Multiple pressure ulcers - Turn and position q2h 5. IDDM - Continue Levemir at 14u sq qhs - ISS BGM ACHS 6. F/E/N: - 65 ml/hr Glucerna 1.5, 50 ml/hr water flushes - Prostat daily 7. Prophylaxis: - SCDs bilaterally - No chemical anticoagulation 2/2 spontaneous gluteal bleed and severe GI bleed - Functional quadriplegia CODE STATUS: DNR Visit type - Emergency Visit Emergency Visit: Yes ED Registration Date: 06/27/15 Care time: The patient presented to the Emergency Department on the above date and was hospitalized for further evaluation of their emergent condition. - New Patient This patient is new to me today: No - Critical Care Critical Care patient: No
[2016-08-16] MEDS: INSULIN DETEMIR 100 UNITS/ML MDV SQ SCH (23:58)
[2016-08-17] MEDS: INSULIN SLIDING SCALE (NOVOLOG) 1 VIAL SQ SCH ×2 (06:30→17:24)
[2016-08-17] MEDS: LACTOBACILLUS ACIDOPHILUS 1 EACH TAB (FP) PO SCH (11:07)
[2016-08-17] MEDS: PANTOPRAZOLE SOD 40 MG SUSPENSION PACKET GT SCH (11:07)
[2016-08-17] MEDS: BACITRACIN 15 GM TUBE TOPICAL OINTMENT TP SCH (11:07)
[2016-08-17] MEDS: LISINOPRIL 20 MG TABLET (FP) GT SCH (11:07)
[2016-08-17] MEDS: amLODIPine BESYLATE 10 MG TABLET (FP) GT SCH (11:07)
[2016-08-17] MEDS: METOPROLOL TARTRATE 50 MG TABLET (FP) GT SCH ×2 (11:07→22:36)
[2016-08-17] MEDS: AMINO ACIDS/PROTEIN HYDROLYS SUGAR-FREE 30 ML PACKET PO SCH (11:08)
[2016-08-17] MEDS: MULTIVITAMINS THERAPEUTIC GT SCH (11:08)
[2016-08-17] MEDS: BACITRACIN/POLYMYXIN B SULFATE 15 GM TUBE TP SCH ×2 (11:08→22:37)
--- NOTE | 2016-08-17 14:21 | PN ---
Progress Note (short form) - Note Progress Note: Subjective: The patient was seen and examined at the bedside, non-verbal. Tolerating room air well. Current Medications Generic Name Dose Route Start Last Admin Trade Name Freq PRN Reason Stop Dose Admin Acetaminophen 650 mg 05/26/16 14:23 06/01/16 01:47 Tylenol Oral Solution - GT 650 mg Q4H PRN Administration FEVER Amino Acids 30 ml 06/28/16 10:00 08/16/16 11:04 Prostat Sugar-Free Packet - PO 30 ml DAILY KWAKU Administration Amlodipine Besylate 10 mg 12/30/15 10:00 08/16/16 11:03 Norvasc - GT 10 mg DAILY KWAKU Administration Bacitracin 1 applic 08/09/16 16:15 08/16/16 11:35 Bacitracin - TP 1 applic DAILY KWAKU Administration Bacitracin/Polymyxin B Sulfate 1 applic 07/25/16 22:00 08/16/16 11:35 Polysporin Ointment - TP 1 applic BID KWAKU Administration Guaifenesin 10 ml 12/29/15 10:43 08/02/16 10:38 Robitussin Dm - PO 10 ml Q6H PRN Administration COUGH Insulin Aspart 1 vial 01/28/16 16:30 08/16/16 06:03 Novolog Vial Sliding Scale - SQ Not Given BIDI [facility] Protocol Insulin Detemir 14 units 05/05/16 22:00 08/15/16 22:29 Levemir Vial SQ 14 units HS KWAKU Administration Lactobacillus Acidophilus 1 tab 12/30/15 10:00 08/16/16 11:02 Bacid - PO 1 tab DAILY KWAKU Administration Lisinopril 40 mg 12/30/15 10:00 08/16/16 11:03 Prinivil GT 40 mg DAILY KWAKU Administration Metoprolol Tartrate 150 mg 12/29/15 22:00 08/16/16 11:02 Lopressor - GT 150 mg BID KWAKU Administration Metoprolol Tartrate 5 mg 12/29/15 10:43 Lopressor Injection - IVPB Q6H PRN HYPERTENSION Multivitamins 5 ml 12/30/15 10:00 08/16/16 11:04 Thera-Plus - GT 5 ml DAILY KWAKU Administration Pantoprazole Sodium 40 mg 12/30/15 10:00 08/16/16 11:04 Protonix Packets For Oral Suspension - GT 40 mg DAILY KWAKU Administration Scopolamine HBr 1 patch 05/20/16 15:45 08/15/16 18:13 Transderm-Scop - TD 1 patch Q72H KWAKU Administration Objective: Vital Signs Period Temp Pulse Resp BP Sys/Santiago Pulse Ox Last 24 Hr 97.9 F-99.1 F 75-88 17-20 114-154/79-92 95-95 Physical Exam: General: No acute distress Neuro: Eye tracking to verbal stimulus Pulm: Tach collar capped on RA, CTA anteriorly CV: RRR, S1S2 Abd: Soft, non-distended. Normoactive bowel sounds. Peg tube c/d/i Ext: Warm, well-perfused. 2+ DP/PT bilaterally CBCD WBC 7.6 K/mm3 (4.0-10.0) 08/15/16 06:45 RBC 3.84 M/mm3 (4.00-5.60) L 08/15/16 06:45 Hgb 10.8 GM/dL (11.7-16.9) L 08/15/16 06:45 Hct 33.2 % (35.4-49) L 08/15/16 06:45 MCV 86.4 fl (80-96) 08/15/16 06:45 MCHC 32.5 g/dl (32.0-35.9) 08/15/16 06:45 RDW 14.9 % (11.9-15.9) 08/15/16 06:45 Plt Count 180 K/MM3 (134-434) 08/15/16 06:45 MPV 9.4 fl (7.5-11.1) 08/15/16 06:45 CMP Sodium 143 mmol/L (136-145) 08/15/16 06:45 Potassium 3.8 mmol/L (3.5-5.1) 08/15/16 06:45 Chloride 106 mmol/L (98-107) 08/15/16 06:45 Carbon Dioxide 31 mmol/L (21-32) 08/15/16 06:45 Anion Gap 6 (8-16) L 08/15/16 06:45 BUN 23 mg/dL (7-18) H 08/15/16 06:45 Creatinine 0.9 mg/dL (0.7-1.3) 08/15/16 06:45 Creat Clearance w eGFR > 60 (>60) 08/11/16 06:15 Random Glucose 151 mg/dL (74-106) H 08/15/16 06:45 Calcium 9.5 mg/dL (8.5-10.1) 08/15/16 06:45 Total Bilirubin 0.3 mg/dL (0.2-1.0) 08/11/16 06:15 AST 20 U/L (15-37) 08/11/16 06:15 ALT 29 U/L (12-78) 08/11/16 06:15 Alkaline Phosphatase 116 U/L (45-117) 08/11/16 06:15 Total Protein 8.1 g/dl (6.4-8.2) 08/11/16 06:15 Albumin 3.4 g/dl (3.4-5.0) 08/11/16 06:15 CARDIAC ENZYMES Creatine Kinase 62 IU/L (38-174) 06/28/15 09:35 Troponin I 0.07 ng/ml (0.03-0.5) D 07/09/15 05:00 Microbiology 08/09/16 22:48 Blood - Peripheral Venous Blood Culture - Final NO GROWTH AFTER 5 DAYS INCUBATION 08/09/16 22:48 Blood - Peripheral Venous Blood Culture - Final NO GROWTH AFTER 5 DAYS INCUBATION 08/10/16 05:01 Urine - Urine - Catheterized Urine Culture - Final NO GROWTH OBTAINED Assessment: 75 year old male with PMHx of HTN, IDDM, inguinal hernia who presented to the ED with diverticular bleed s/p Righ hemicolectomy with 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 Plan: 1. Anoxic brain injury s/p brainstem CVAs - Mental status unchanged 2. Respiratory failure secondary to anoxic brain injury - Cont O2 via nasal cannula (silicone Portex): Next trach change 08/30 - Duonebs PRN 3. HTN - Hold metoprolol due to periods of bradycardia - EKG with marked sinus arrhythmia, no significant change found when compared to prior EKG - Continue lisinopril, amlodipine, lopressor 4. Multiple pressure ulcers - Turn and position q2h 5. IDDM - Continue Levemir at 14u sq qhs - ISS BGM ACHS 6. F/E/N: - 70 ml/hr Glucerna 1.5, 50 ml/hr water flushes - Prostat daily 7. Prophylaxis: - SCDs bilaterally - No chemical anticoagulation 2/2 spontaneous gluteal bleed and severe GI bleed - Functional quadriplegia CODE STATUS: DNR Visit type - Emergency Visit Emergency Visit: Yes ED Registration Date: 06/27/15 Care time: The patient presented to the Emergency Department on the above date and was hospitalized for further evaluation of their emergent condition. - New Patient This patient is new to me today: No - Critical Care Critical Care patient: No
[2016-08-17] MEDS: INSULIN DETEMIR 100 UNITS/ML MDV SQ SCH (22:37)
[2016-08-18] MEDS: INSULIN SLIDING SCALE (NOVOLOG) 1 VIAL SQ SCH ×2 (06:43→16:51)
[2016-08-18] MEDS: METOPROLOL TARTRATE 50 MG TABLET (FP) GT SCH ×2 (10:20→22:57)
[2016-08-18] MEDS: AMINO ACIDS/PROTEIN HYDROLYS SUGAR-FREE 30 ML PACKET PO SCH (10:21)
[2016-08-18] MEDS: amLODIPine BESYLATE 10 MG TABLET (FP) GT SCH (10:21)
[2016-08-18] MEDS: PANTOPRAZOLE SOD 40 MG SUSPENSION PACKET GT SCH (10:21)
[2016-08-18] MEDS: LISINOPRIL 20 MG TABLET (FP) GT SCH (10:21)
[2016-08-18] MEDS: LACTOBACILLUS ACIDOPHILUS 1 EACH TAB (FP) PO SCH (10:21)
[2016-08-18] MEDS: BACITRACIN 15 GM TUBE TOPICAL OINTMENT TP SCH (10:26)
[2016-08-18] MEDS: BACITRACIN/POLYMYXIN B SULFATE 15 GM TUBE TP SCH ×2 (10:27→22:57)
[2016-08-18] MEDS: MULTIVITAMINS THERAPEUTIC GT SCH (10:29)
[2016-08-18] MEDS: SCOPOLAMINE HYDROBROMIDE 1 PATCH PATCH.TD72 TD SCH (16:51)
--- NOTE | 2016-08-18 17:10 | PN ---
Physical Exam: SUBJECTIVE: Patient seen and examined. More awake today, non verbal at baseline. On room air and sats at 94%. OBJECTIVE: Vital Signs Period Temp Pulse Resp BP Sys/Santiago Pulse Ox Last 24 Hr 98.1 F-99.5 F 64-96 19-20 128-161/68-94 94-94 GENERAL: in no acute distress. HEAD: Normal with no signs of trauma. LUNGS: Breath sounds diminished HEART: Regular rate and rhythm, ABDOMEN: peg tube NEUROLOGICAL: at baseline PSYCH: at baseline Laboratory Results - last 24 hr 08/17/16 08/18/16 17:23 06:36 POC Glucometer 161 161 Active Medications Generic Name Dose Route Start Last Admin Trade Name Freq PRN Reason Stop Dose Admin Acetaminophen 650 mg 05/26/16 14:23 06/01/16 01:47 Tylenol Oral Solution - GT 650 mg Q4H PRN Administration FEVER Amino Acids 30 ml 06/28/16 10:00 08/18/16 10:21 Prostat Sugar-Free Packet - PO 30 ml DAILY KWAKU Administration Amlodipine Besylate 10 mg 12/30/15 10:00 08/18/16 10:21 Norvasc - GT 10 mg DAILY KWAKU Administration Bacitracin 1 applic 08/09/16 16:15 08/18/16 10:26 Bacitracin - TP 1 applic DAILY KWAKU Administration Bacitracin/Polymyxin B Sulfate 1 applic 07/25/16 22:00 08/18/16 10:27 Polysporin Ointment - TP 1 applic BID KWAKU Administration Guaifenesin 10 ml 12/29/15 10:43 08/02/16 10:38 Robitussin Dm - PO 10 ml Q6H PRN Administration COUGH Insulin Aspart 1 vial 01/28/16 16:30 08/18/16 16:51 Novolog Vial Sliding Scale - SQ 2 units BIDI KWAKU Administration Protocol Insulin Detemir 14 units 05/05/16 22:00 08/17/16 22:37 Levemir Vial SQ 14 units HS KWAKU Administration Lactobacillus Acidophilus 1 tab 12/30/15 10:00 08/18/16 10:21 Bacid - PO 1 tab DAILY KWAKU Administration Lisinopril 40 mg 12/30/15 10:00 08/18/16 10:21 Prinivil GT 40 mg DAILY KWAKU Administration Metoprolol Tartrate 150 mg 12/29/15 22:00 08/18/16 10:20 Lopressor - GT 150 mg BID KWAKU Administration Metoprolol Tartrate 5 mg 12/29/15 10:43 Lopressor Injection - IVPB Q6H PRN HYPERTENSION Multivitamins 5 ml 12/30/15 10:00 08/18/16 10:29 Thera-Plus - GT 5 ml DAILY KWAKU Administration Pantoprazole Sodium 40 mg 12/30/15 10:00 08/18/16 10:21 Protonix Packets For Oral Suspension - GT 40 mg DAILY KWAKU Administration Scopolamine HBr 1 patch 05/20/16 15:45 08/18/16 16:51 Transderm-Scop - TD 1 patch Q72H KWAKU Administration ASSESSMENT/PLAN: Cardiovascular: Hypertension: - Ekg with no significant changes from baseline - on Lisinopril, Norvasc and Lopressor Neurology: -Anoxic brain injury s/p brainstem CVAs -Mental status at baseline Pulmonary: - On continuous oxygen (room air), tolerating it well. Has respiratory failure secondary to anoxic brain injury - duonebs as needed Endocrine: Diabetes: - Continue Levemir - BGM ACHS F.E.N. -Glucerna with water flushes -Prostat for treatment of pressure ulcers DVT Prophylaxis: - SCDs - both legs - No AC: contraindicated secondary to GI bleed DNR Visit type - Emergency Visit Emergency Visit: No - New Patient This patient is new to me today: No - Critical Care Critical Care patient: No - Discharge Referral Referred to [facility] Med P.C.: No
[2016-08-18] MEDS: INSULIN DETEMIR 100 UNITS/ML MDV SQ SCH (22:57)
[2016-08-19] MEDS: INSULIN SLIDING SCALE (NOVOLOG) 1 VIAL SQ SCH ×2 (06:35→17:05)
[2016-08-19] MEDS: PANTOPRAZOLE SOD 40 MG SUSPENSION PACKET GT SCH (11:10)
[2016-08-19] MEDS: amLODIPine BESYLATE 10 MG TABLET (FP) GT SCH (11:10)
[2016-08-19] MEDS: METOPROLOL TARTRATE 50 MG TABLET (FP) GT SCH ×2 (11:10→21:35)
[2016-08-19] MEDS: LISINOPRIL 20 MG TABLET (FP) GT SCH (11:10)
[2016-08-19] MEDS: MULTIVITAMINS THERAPEUTIC GT SCH (11:10)
[2016-08-19] MEDS: LACTOBACILLUS ACIDOPHILUS 1 EACH TAB (FP) PO SCH (11:10)
[2016-08-19] MEDS: BACITRACIN 15 GM TUBE TOPICAL OINTMENT TP SCH (11:11)
[2016-08-19] MEDS: BACITRACIN/POLYMYXIN B SULFATE 15 GM TUBE TP SCH (11:11)
[2016-08-19] MEDS: AMINO ACIDS/PROTEIN HYDROLYS SUGAR-FREE 30 ML PACKET PO SCH (11:11)
--- NOTE | 2016-08-19 14:39 | HP ---
CHIEF COMPLAINT: PCP: HISTORY OF PRESENT ILLNESS: ER course was notable for: (1) (2) (3) Recent Travel: PAST MEDICAL HISTORY: PAST SURGICAL HISTORY: Social History: Smoking: Alcohol: Drugs: Family History: Allergies No Known Allergies Allergy (Verified 06/26/15 21:31) HOME MEDICATIONS: Medication Instructions Recorded Amino Acids/Protein Hydrolys 30 ml GT DAILY packet 08/09/15 [Prostat Sugar-Free Packet -] Amlodipine Besylate [Norvasc -] 10 mg GT DAILY tablet 08/09/15 Chlorhexidine Gluconate [Peridex -] 15 ml MM BID cup 08/09/15 Insulin (Levemir) [Levemir Flexpen 25 units SQ HS pen 08/09/15 -] Insulin (Novolog) [Novolog Flexpen 3 units SQ Q6HPO pen 08/09/15 -] Insulin Sliding Scale [Novolog 0 units SQ Q6HPO pen 08/09/15 Vial Sliding Scale -] Lisinopril [Prinivil] 20 mg GT DAILY tablet 08/09/15 Metoprolol Tartrate Injection 5 mg IVPB Q6H PRN #0 vial 08/09/15 [Lopressor Injection -] Metoprolol Tartrate [Lopressor -] 100 mg GT BID tablet 08/09/15 Ondansetron Injection [Zofran 4 mg IVPB Q6H PRN #0 vial 08/09/15 Injection] Pantoprazole Suspension [Protonix 40 mg GT DAILY packet 08/09/15 Packets For Oral Suspension -] Vancomycin Oral Solution 125 mg GT Q6HPO ml 08/09/15 REVIEW OF SYSTEMS CONSTITUTIONAL: Absent: fever, chills, diaphoresis, generalized weakness, malaise, loss of appetite, weight change HEENT: Absent: rhinorrhea, nasal congestion, throat pain, throat swelling, difficulty swallowing, mouth swelling, ear pain, eye pain, visual changes CARDIOVASCULAR: Absent: chest pain, syncope, palpitations, irregular heart rate, lightheadedness , peripheral edema RESPIRATORY: Absent: cough, shortness of breath, dyspnea with exertion, orthopnea, wheezing, stridor, hemoptysis GASTROINTESTINAL: Absent: abdominal pain, abdominal distension, nausea, vomiting, diarrhea, constipation, melena, hematochezia GENITOURINARY: Absent: dysuria, frequency, urgency, hesitancy, hematuria, flank pain, genital pain MUSCULOSKELETAL: Absent: myalgia, arthralgia, joint swelling, back pain, neck pain SKIN: Absent: rash, itching, pallor HEMATOLOGIC/IMMUNOLOGIC: Absent: easy bleeding, easy bruising, lymphadenopathy, frequent infections ENDOCRINE: Absent: unexplained weight gain, unexplained weight loss, heat intolerance, cold intolerance NEUROLOGIC: Absent: headache, focal weakness or paresthesias, dizziness, unsteady gait, seizure, mental status changes, bladder or bowel incontinence PSYCHIATRIC: Absent: anxiety, depression, suicidal or homicidal ideation, hallucinations. PHYSICAL EXAMINATION Vital Signs - 24 hr 08/18/16 08/18/16 08/18/16 14:44 16:20 18:47 Temperature 99.5 F 97.5 F L Pulse Rate 73 77 75 Respiratory 19 20 Rate Blood Pressure 138/94 143/80 O2 Sat by Pulse 95 Oximetry (%) 08/18/16 08/18/16 08/19/16 22:00 22:35 02:05 Temperature 98.2 F Pulse Rate 88 83 71 Respiratory 18 20 Rate Blood Pressure 149/91 138/86 O2 Sat by Pulse 93 L 95 Oximetry (%) 08/19/16 08/19/16 08/19/16 06:00 06:50 10:00 Temperature 98.7 F 97.7 F Pulse Rate 82 78 77 Respiratory 20 20 Rate Blood Pressure 138/82 165/99 O2 Sat by Pulse 95 Oximetry (%) 08/19/16 11:59 Temperature Pulse Rate 76 Respiratory Rate Blood Pressure O2 Sat by Pulse 95 Oximetry (%) GENERAL: Awake, alert, and fully oriented, in no acute distress. HEAD: Normal with no signs of trauma. EYES: Pupils equal, round and reactive to light, extraocular movements intact, sclera anicteric, conjunctiva clear. No lid lag. EARS, NOSE, THROAT: Ears normal, nares patent, oropharynx clear without exudates. Moist mucous membranes. NECK: Normal range of motion, supple without lymphadenopathy, JVD, or masses. LUNGS: Breath sounds equal, clear to auscultation bilaterally. No wheezes, and no crackles. No accessory muscle use. HEART: Regular rate and rhythm, normal S1 and S2 without murmur, rub or gallop. ABDOMEN: Soft, nontender, not distended, normoactive bowel sounds, no guarding, no rebound, no masses. No hepatomegaly or splenomegaly. MUSCULOSKELETAL: Normal range of motion at all joints. No bony deformities or tenderness. No CVA tenderness. UPPER EXTREMITIES: 2+ pulses, warm, well-perfused. No cyanosis. No clubbing. Cap refill <2 seconds. No peripheral edema. LOWER EXTREMITIES: 2+ pulses, warm, well-perfused. No calf tenderness. No peripheral edema. NEUROLOGICAL: Cranial nerves II-XII intact. Normal speech. Normal gait. PSYCHIATRIC: Cooperative. Good eye contact. Appropriate mood and affect. SKIN: Warm, dry, normal turgor, no rashes or lesions noted. Laboratory Results - last 24 hr 08/18/16 08/18/16 08/19/16 16:50 22:55 06:34 POC Glucometer 156 144 150 ASSESSMENT/PLAN:
--- NOTE | 2016-08-19 14:44 | PN ---
Physical Exam: SUBJECTIVE: Patient seen and examined at the bedside. Appears unchanged. Tolerating room air. OBJECTIVE: GENERAL: in no acute distress. HEAD: Normal with no signs of trauma. LUNGS: Breath sounds diminished HEART: Regular rate and rhythm, ABDOMEN: peg tube NEUROLOGICAL: at baseline PSYCH: at baseline Vital Signs Period Temp Pulse Resp BP Sys/Santiago Pulse Ox Last 24 Hr 97.5 F-98.7 F 71-88 18-20 138-165/80-99 93-95 Laboratory Results - last 24 hr 08/18/16 08/18/16 08/19/16 16:50 22:55 06:34 POC Glucometer 156 144 150 Active Medications Generic Name Dose Route Start Last Admin Trade Name Freq PRN Reason Stop Dose Admin Acetaminophen 650 mg 05/26/16 14:23 06/01/16 01:47 Tylenol Oral Solution - GT 650 mg Q4H PRN Administration FEVER Amino Acids 30 ml 06/28/16 10:00 08/19/16 11:11 Prostat Sugar-Free Packet - PO 30 ml DAILY [facility] Administration Amlodipine Besylate 10 mg 12/30/15 10:00 08/19/16 11:10 Norvasc - GT 10 mg DAILY [facility]U Administration Bacitracin 1 applic 08/09/16 16:15 08/19/16 11:11 Bacitracin - TP 1 applic DAILY [facility]U Administration Bacitracin/Polymyxin B Sulfate 1 applic 07/25/16 22:00 08/19/16 11:11 Polysporin Ointment - TP 1 applic BID [facility]U Administration Guaifenesin 10 ml 12/29/15 10:43 08/02/16 10:38 Robitussin Dm - PO 10 ml Q6H PRN Administration COUGH Insulin Aspart 1 vial 01/28/16 16:30 08/19/16 06:35 Novolog Vial Sliding Scale - SQ Not Given BIDI [facility] Protocol Insulin Detemir 14 units 05/05/16 22:00 08/18/16 22:57 Levemir Vial SQ 14 units HS K[facility]AKU Administration Lactobacillus Acidophilus 1 tab 12/30/15 10:00 08/19/16 11:10 Bacid - PO 1 tab DAILY [facility]U Administration Lisinopril 40 mg 12/30/15 10:00 08/19/16 11:10 Prinivil GT 40 mg DAILY [facility] Administration Metoprolol Tartrate 150 mg 12/29/15 22:00 08/19/16 11:10 Lopressor - GT 150 mg BID K[facility]U Administration Metoprolol Tartrate 5 mg 12/29/15 10:43 Lopressor Injection - IVPB Q6H PRN HYPERTENSION Multivitamins 5 ml 12/30/15 10:00 08/19/16 11:10 Thera-Plus - GT 5 ml DAILY [facility]U Administration Pantoprazole Sodium 40 mg 12/30/15 10:00 08/19/16 11:10 Protonix Packets For Oral Suspension - GT 40 mg DAILY [facility]U Administration Scopolamine HBr 1 patch 05/20/16 15:45 08/18/16 16:51 Transderm-Scop - TD 1 patch Q72H K[facility]AKU Administration ASSESSMENT/PLAN: Cardiovascular: Hypertension: - Ekg with no significant changes from baseline - on Lisinopril, Norvasc and Lopressor Neurology: -Anoxic brain injury s/p brainstem CVAs -Mental status at baseline Pulmonary: - On continuous oxygen (room air), tolerating it well. Has respiratory failure secondary to anoxic brain injury - duonebs as PRN Endocrine: Diabetes: - Continue Levemir - BGM ACHS F.E.N. -Glucerna with water flushes -Prostat for treatment of pressure ulcers DVT Prophylaxis: - SCDs - both legs - No AC: contraindicated secondary to GI bleed DNR Pt requires continued inpatient care Visit type - Emergency Visit Emergency Visit: No - New Patient This patient is new to me today: No - Critical Care Critical Care patient: No - Discharge Referral Referred to [facility] Med P.C.: No
[2016-08-19] MEDS: INSULIN DETEMIR 100 UNITS/ML MDV SQ SCH (21:36)
[2016-08-20] MEDS: BACITRACIN/POLYMYXIN B SULFATE 15 GM TUBE TP SCH ×2 (03:19→10:23)
[2016-08-20] MEDS: INSULIN SLIDING SCALE (NOVOLOG) 1 VIAL SQ SCH ×2 (06:15→17:35)
[2016-08-20] MEDS: BACITRACIN 15 GM TUBE TOPICAL OINTMENT TP SCH (10:21)
[2016-08-20] MEDS: LACTOBACILLUS ACIDOPHILUS 1 EACH TAB (FP) PO SCH (10:21)
[2016-08-20] MEDS: METOPROLOL TARTRATE 50 MG TABLET (FP) GT SCH ×2 (10:22→23:46)
[2016-08-20] MEDS: amLODIPine BESYLATE 10 MG TABLET (FP) GT SCH (10:22)
[2016-08-20] MEDS: AMINO ACIDS/PROTEIN HYDROLYS SUGAR-FREE 30 ML PACKET PO SCH (10:22)
[2016-08-20] MEDS: LISINOPRIL 20 MG TABLET (FP) GT SCH (10:22)
[2016-08-20] MEDS: PANTOPRAZOLE SOD 40 MG SUSPENSION PACKET GT SCH (10:23)
[2016-08-20] MEDS: MULTIVITAMINS THERAPEUTIC GT SCH (10:23)
--- NOTE | 2016-08-20 16:44 | PN ---
Physical Exam: SUBJECTIVE: Patient seen and examined. Had facial grimacing while touching his abdomen. Appears very uncomfortable and may be having pain. Pt unable to verbalize. OBJECTIVE: GENERAL: in no acute distress. HEAD: Normal with no signs of trauma. LUNGS: Breath sounds diminished HEART: Regular rate and rhythm, ABDOMEN: peg tube NEUROLOGICAL: at baseline PSYCH: at baseline Vital Signs Period Temp Pulse Resp BP Sys/Santiago Pulse Ox Last 24 Hr 97.2 F-99.8 F 68-96 18-22 138-160/68-90 93-96 Laboratory Results - last 24 hr 08/19/16 08/19/16 08/20/16 17:01 21:31 05:13 POC Glucometer 134 127 164 Active Medications Generic Name Dose Route Start Last Admin Trade Name Freq PRN Reason Stop Dose Admin Acetaminophen 650 mg 05/26/16 14:23 06/01/16 01:47 Tylenol Oral Solution - GT 650 mg Q4H PRN Administration FEVER Amino Acids 30 ml 06/28/16 10:00 08/20/16 10:22 Prostat Sugar-Free Packet - PO 30 ml DAILY K[facility]AKU Administration Amlodipine Besylate 10 mg 12/30/15 10:00 08/20/16 10:22 Norvasc - GT 10 mg DAILY [facility] Administration Bacitracin 1 applic 08/09/16 16:15 08/20/16 10:21 Bacitracin - TP 1 applic DAILY [facility] Administration Bacitracin/Polymyxin B Sulfate 1 applic 07/25/16 22:00 08/20/16 10:23 Polysporin Ointment - TP 1 applic BID K[facility]AKU Administration Guaifenesin 10 ml 12/29/15 10:43 08/02/16 10:38 Robitussin Dm - PO 10 ml Q6H PRN Administration COUGH Insulin Aspart 1 vial 01/28/16 16:30 08/20/16 06:15 Novolog Vial Sliding Scale - SQ 2 units BIDI [facility] Administration Protocol Insulin Detemir 14 units 05/05/16 22:00 08/19/16 21:36 Levemir Vial SQ 14 units HS K[facility]AKU Administration Lactobacillus Acidophilus 1 tab 12/30/15 10:00 08/20/16 10:21 Bacid - PO 1 tab DAILY K[facility]AKU Administration Lisinopril 40 mg 12/30/15 10:00 08/20/16 10:22 Prinivil GT 40 mg DAILY [facility] Administration Metoprolol Tartrate 150 mg 12/29/15 22:00 08/20/16 10:22 Lopressor - GT 150 mg BID K[facility]AK[facility] Administration Metoprolol Tartrate 5 mg 12/29/15 10:43 Lopressor Injection - IVPB Q6H PRN HYPERTENSION Multivitamins 5 ml 12/30/15 10:00 08/20/16 10:23 Thera-Plus - GT 5 ml DAILY [facility] Administration Pantoprazole Sodium 40 mg 12/30/15 10:00 08/20/16 10:23 Protonix Packets For Oral Suspension - GT 40 mg DAILY [facility]U Administration Scopolamine HBr 1 patch 05/20/16 15:45 08/18/16 16:51 Transderm-Scop - TD 1 patch Q72H [facility]AKU Administration ASSESSMENT/PLAN: Patient is a 75 year old male with a past medical history of IDDM, HTN and inguinal hernia. He presented to the emergency room with a diverticular bleed s/p right hemicolectomy. His hospitalization was further complicated with a CVA with anoxic brain injury. He is s/p trach. He has a PEG tube placed. GI: Abdominal Pain - Facial grimacing while rubbing his abdomen was noted, appears to be in pain, morphine 1mg IM ordered x 1 with good effect - may be having gas pain from tube feeds will order simethecone Cardiovascular: Hypertension: - Ekg with no significant changes from baseline - on Lisinopril, Norvasc and Lopressor Neurology: -Anoxic brain injury s/p brainstem CVAs -Mental status at baseline Pulmonary: - On continuous oxygen (room air), tolerating it well. Has respiratory failure secondary to anoxic brain injury - duonebs as PRN Endocrine: Diabetes: - Continue Levemir - BGM ACHS F.E.N. -Glucerna with water flushes -Prostat for treatment of pressure ulcers DVT Prophylaxis: - SCDs - both legs - No AC: contraindicated secondary to GI bleed DNR Pt requires continued inpatient care Visit type - Emergency Visit Emergency Visit: No - New Patient This patient is new to me today: No - Critical Care Critical Care patient: No - Discharge Referral Referred to [facility] Med P.C.: No
[2016-08-20] MEDS: INSULIN DETEMIR 100 UNITS/ML MDV SQ SCH (23:48)
[2016-08-21] MEDS: SIMETHICONE 40 MG/0.6 ML BOTTLE PEG PRN (01:13)
[2016-08-21] MEDS: INSULIN SLIDING SCALE (NOVOLOG) 1 VIAL SQ SCH ×2 (06:32→18:20)
[2016-08-21] MEDS: BACITRACIN/POLYMYXIN B SULFATE 15 GM TUBE TP SCH ×3 (06:51→21:46)
[2016-08-21 08:47] LABS: BASOPHIL 0.7 % (0-2.0); EOSINOPHIL 5.6 % (0-4.5); MCH 27.6 pg (25.7-33.7); MCHC 31.7 g/dl (32.0-35.9); MEAN PLT VOLUME 9.7 fl (7.5-11.1); NEUTROPHILS 55.4 % (42.8-82.8); PLATELET COUNT 213 K/MM3 (134-434); RDW 15.1 % (11.9-15.9); WHITE BLOOD COUNT 7.5 K/mm3 (4.0-10.0)
[2016-08-21 09:18] LABS: ALBUMIN 3.5 g/dl (3.4-5.0); ALK PHOS 128 U/L (45-117); ANION GAP 6 (8-16); BILIRUBIN,TOTAL 0.3 mg/dL (0.2-1.0); CALCIUM 9.6 mg/dL (8.5-10.1); CO2 29 mmol/L (21-32); CREATININE 0.9 mg/dL (0.7-1.3); GLUCOSE,RANDOM 132 mg/dL (74-106); SGOT/AST 16 U/L (15-37); SGPT/ALT 32 U/L (12-78); TOT PROT 8.1 g/dl (6.4-8.2)
[2016-08-21] MEDS: amLODIPine BESYLATE 10 MG TABLET (FP) GT SCH (11:48)
[2016-08-21] MEDS: METOPROLOL TARTRATE 50 MG TABLET (FP) GT SCH ×2 (11:48→21:46)
[2016-08-21] MEDS: PANTOPRAZOLE SOD 40 MG SUSPENSION PACKET GT SCH (11:48)
[2016-08-21] MEDS: LISINOPRIL 20 MG TABLET (FP) GT SCH (11:49)
[2016-08-21] MEDS: LACTOBACILLUS ACIDOPHILUS 1 EACH TAB (FP) PO SCH (11:49)
[2016-08-21] MEDS: AMINO ACIDS/PROTEIN HYDROLYS SUGAR-FREE 30 ML PACKET PO SCH (11:50)
[2016-08-21] MEDS: MULTIVITAMINS THERAPEUTIC GT SCH (11:51)
[2016-08-21] MEDS: BACITRACIN 15 GM TUBE TOPICAL OINTMENT TP SCH (12:30)
--- NOTE | 2016-08-21 16:31 | PN ---
Progress Note, Physician Chief Complaint: Pt appears uncomfortable, grimacing, but vitals fairly stable. No acute events overnight except need for 2L NC order which pt has been off and on during this hospitalization. Has been urinating, no residuals from PEG feeds. He is noted to be positioned uncomfortably in bed - Current Medication List Current Medications: Active Medications Acetaminophen (Tylenol Oral Solution -) 650 mg GT Q4H PRN PRN Reason: FEVER Last Admin: 06/01/16 01:47 Dose: 650 mg Amino Acids (Prostat Sugar-Free Packet -) 30 ml PO DAILY [facility] Last Admin: 08/21/16 11:50 Dose: 30 ml Amlodipine Besylate (Norvasc -) 10 mg GT DAILY [facility] Last Admin: 08/21/16 11:48 Dose: 10 mg Bacitracin (Bacitracin -) 1 applic TP DAILY [facility] Last Admin: 08/21/16 12:30 Dose: 1 applic Bacitracin/Polymyxin B Sulfate (Polysporin Ointment -) 1 applic TP BID [facility] Last Admin: 08/21/16 12:30 Dose: 1 applic Guaifenesin (Robitussin Dm -) 10 ml PO Q6H PRN PRN Reason: COUGH Last Admin: 08/02/16 10:38 Dose: 10 ml Insulin Aspart (Novolog Vial Sliding Scale -) 1 vial SQ BIDI [facility] PRN Reason: Protocol Last Admin: 08/21/16 06:32 Dose: Not Given Insulin Detemir (Levemir Vial) 14 units SQ HS [facility] Last Admin: 08/20/16 23:48 Dose: 14 units Lactobacillus Acidophilus (Bacid -) 1 tab PO DAILY [facility] Last Admin: 08/21/16 11:49 Dose: 1 tab Lisinopril (Prinivil) 40 mg GT DAILY [facility] Last Admin: 08/21/16 11:49 Dose: 40 mg Metoprolol Tartrate (Lopressor -) 150 mg GT BID [facility] Last Admin: 08/21/16 11:48 Dose: 150 mg Metoprolol Tartrate (Lopressor Injection -) 5 mg IVPB Q6H PRN PRN Reason: HYPERTENSION Multivitamins (Thera-Plus -) 5 ml GT DAILY [facility] Last Admin: 08/21/16 11:51 Dose: 5 ml Pantoprazole Sodium (Protonix Packets For Oral Suspension -) 40 mg GT DAILY [facility] Last Admin: 08/21/16 11:48 Dose: 40 mg Scopolamine HBr (Transderm-Scop -) 1 patch TD Q72H [facility] Last Admin: 08/18/16 16:51 Dose: 1 patch Simethicone (Mylicon Liquid -) 40 mg PEG QID PRN PRN Reason: abdominal pain Last Admin: 08/21/16 01:13 Dose: 40 mg - Objective Vital Signs: Vital Signs Temperature 98.9 F 08/21/16 15:25 Pulse Rate 76 08/21/16 15:25 Respiratory Rate 20 08/21/16 15:25 Blood Pressure 147/76 08/21/16 15:25 O2 Sat by Pulse Oximetry (%) 98 08/21/16 09:59 Constitutional: Yes: Well Nourished, Mild Distress (appears uncomfortable, grimacing, but non-verbal) Eyes: Yes: WNL HENT: Yes: WNL Neck: Yes: Supple, Other (trach capped) Cardiovascular: Yes: Regular Rate and Rhythm Respiratory: Yes: WNL (placed on 2L overnight but appears comfortable), On Nasal O2 Gastrointestinal: Yes: Normal Bowel Sounds, Other (PEG) Genitourinary: Yes: Schwartz Present (wawrm, dry) Neurological: Yes: Alert, Other (nonverbal) Labs: CBC, BMP 08/21/16 07:30 08/21/16 07:30 INR, PTT INR 1.20 (0.82-1.09) H 08/14/16 06:00 Assessment/Plan Patient is a 75 year old male with a past medical history of IDDM, HTN and inguinal hernia. He presented to the emergency room with a diverticular bleed s/p right hemicolectomy. His hospitalization was further complicated with a CVA with anoxic brain injury. He is s/p trach. He has a PEG tube placed. GI: Abdominal Pain - Facial grimacing while rubbing his abdomen was noted, appears to be in pain, morphine 1mg IM ordered x 1 with good effect - may be having gas pain from tube feeds will order simethecone -grimacing today, have asked nurse to re-position. Given issues yesterday will order abd XR to re-assess Cardiovascular: Hypertension: - Ekg with no significant changes from baseline - on Lisinopril, Norvasc and Lopressor Neurology: -Anoxic brain injury s/p brainstem CVAs -Mental status at baseline Pulmonary: - On continuous oxygen (room air), tolerating it well. Has respiratory failure secondary to anoxic brain injury - duonebs as PRN -O2 prn Endocrine: Diabetes: - Continue Levemir - BGM ACHS F.E.N. -Glucerna with water flushes -Prostat for treatment of pressure ulcers DVT Prophylaxis: - SCDs - both legs - No AC: contraindicated secondary to GI bleed DNR
[2016-08-21] MEDS: SCOPOLAMINE HYDROBROMIDE 1 PATCH PATCH.TD72 TD SCH (18:19)
[2016-08-21] MEDS: INSULIN DETEMIR 100 UNITS/ML MDV SQ SCH (21:46)
[2016-08-22] MEDS: INSULIN SLIDING SCALE (NOVOLOG) 1 VIAL SQ SCH (06:24)
[2016-08-22] MEDS: amLODIPine BESYLATE 10 MG TABLET (FP) GT SCH (10:13)
[2016-08-22] MEDS: LACTOBACILLUS ACIDOPHILUS 1 EACH TAB (FP) PO SCH (10:13)
[2016-08-22] MEDS: METOPROLOL TARTRATE 50 MG TABLET (FP) GT SCH ×2 (10:13→23:30)
[2016-08-22] MEDS: LISINOPRIL 20 MG TABLET (FP) GT SCH (10:13)
[2016-08-22] MEDS: PANTOPRAZOLE SOD 40 MG SUSPENSION PACKET GT SCH (10:14)
[2016-08-22] MEDS: BACITRACIN/POLYMYXIN B SULFATE 15 GM TUBE TP SCH ×2 (10:14→23:42)
[2016-08-22] MEDS: BACITRACIN 15 GM TUBE TOPICAL OINTMENT TP SCH (10:14)
[2016-08-22] MEDS: SIMETHICONE 40 MG/0.6 ML BOTTLE PEG PRN (10:15)
[2016-08-22] MEDS: AMINO ACIDS/PROTEIN HYDROLYS SUGAR-FREE 30 ML PACKET PO SCH (10:15)
[2016-08-22] MEDS: MULTIVITAMINS THERAPEUTIC GT SCH (14:56)
--- NOTE | 2016-08-22 15:32 | PN ---
Physical Exam: SUBJECTIVE: Patient seen and examined. No acute events. Remains on RA today. Pt to receive flu vaccine OBJECTIVE: Vital Signs Period Temp Pulse Resp BP Sys/Santiago Pulse Ox Last 24 Hr 98.9 F-99.4 F 76-92 18-20 140-156/77-89 95-96 Constitutional: Yes: Well Nourished, on RA. More comfortable today, but at times uncomfortable and grimacing. Non-verbal Eyes: Yes: WNL HENT: Yes: WNL Neck: Yes: Supple, Other (trach capped) Cardiovascular: Yes: Regular Rate and Rhythm Respiratory: Yes: WNL Gastrointestinal: Yes: Normal Bowel Sounds, Other (PEG) Genitourinary: Yes: Schwartz Present (warm, dry) Neurological: Yes: Alert, Other (nonverbal) Skin: pressure ulcers Laboratory Results - last 24 hr 08/21/16 08/22/16 18:16 05:54 POC Glucometer 145 153 Active Medications Generic Name Dose Route Start Last Admin Trade Name Freq PRN Reason Stop Dose Admin Acetaminophen 650 mg 05/26/16 14:23 06/01/16 01:47 Tylenol Oral Solution - GT 650 mg Q4H PRN Administration FEVER Amino Acids 30 ml 06/28/16 10:00 08/22/16 10:15 Prostat Sugar-Free Packet - PO 30 ml DAILY [facility]AKU Administration Amlodipine Besylate 10 mg 12/30/15 10:00 08/22/16 10:13 Norvasc - GT 10 mg DAILY [facility] Administration Bacitracin 1 applic 08/09/16 16:15 08/22/16 10:14 Bacitracin - TP 1 applic DAILY [facility] Administration Bacitracin/Polymyxin B Sulfate 1 applic 07/25/16 22:00 08/22/16 10:14 Polysporin Ointment - TP 1 applic BID [facility]U Administration Guaifenesin 10 ml 12/29/15 10:43 08/02/16 10:38 Robitussin Dm - PO 10 ml Q6H PRN Administration COUGH Influenza Virus Vaccine 45 mcg 08/22/16 14:43 Fluvirin IM 08/22/16 14:44 .ONCE ONE Insulin Aspart 1 vial 01/28/16 16:30 08/22/16 06:24 Novolog Vial Sliding Scale - SQ 2 units BIDI [facility] Administration Protocol Insulin Detemir 14 units 05/05/16 22:00 10/24/16 21:46 Levemir Vial SQ 14 units HS [facility] Administration Lactobacillus Acidophilus 1 tab 12/30/15 10:00 08/22/16 10:13 Bacid - PO 1 tab DAILY [facility] Administration Lisinopril 40 mg 12/30/15 10:00 08/22/16 10:13 Prinivil GT 40 mg DAILY [facility] Administration Metoprolol Tartrate 150 mg 12/29/15 22:00 08/22/16 10:13 Lopressor - GT 150 mg BID [facility] Administration Metoprolol Tartrate 5 mg 12/29/15 10:43 Lopressor Injection - IVPB Q6H PRN HYPERTENSION Multivitamins 5 ml 12/30/15 10:00 08/22/16 14:56 Thera-Plus - GT 5 ml DAILY [facility] Administration Pantoprazole Sodium 40 mg 12/30/15 10:00 08/22/16 10:14 Protonix Packets For Oral Suspension - GT 40 mg DAILY [facility] Administration Scopolamine HBr 1 patch 05/20/16 15:45 08/21/16 18:19 Transderm-Scop - TD 1 patch Q72H [facility] Administration Simethicone 40 mg 08/20/16 16:49 08/22/16 10:15 Mylicon Liquid - PEG 40 mg QID PRN Administration abdominal pain ASSESSMENT/PLAN: Patient is a 75 year old male with a past medical history of IDDM, HTN and inguinal hernia. He presented to the emergency room with a diverticular bleed s/p right hemicolectomy. His hospitalization was further complicated with a CVA with anoxic brain injury. He is s/p trach. He has a PEG tube placed. GI: Abdominal Pain? -pt appears uncomfortable briefly but then goes back to baseline of staring/ nonverbal -earlier this week received morphine X 1 for ?abdominal pain. Ordered for simethicone -yesterday repositioned for improved comfortable. NC was removed for improved comfortable, O2 sat's 95% . Last BM recorded as 08/21, urinating and tolerating feeds. Cardiovascular: Hypertension: - on Lisinopril, Norvasc and Lopressor Neurology: -Anoxic brain injury s/p brainstem CVAs -Mental status at baseline Pulmonary: - On continuous oxygen (room air), tolerating it well. Has respiratory failure secondary to anoxic brain injury - duonebs as PRN -O2 prn Endocrine: Diabetes: - Continue Levemir - BGM ACHS F.E.N. -Glucerna with water flushes -Prostat for treatment of pressure ulcers DVT Prophylaxis: - SCDs - both legs - No AC: contraindicated secondary to GI bleed Visit type - Emergency Visit Emergency Visit: Yes ED Registration Date: 06/27/15 Care time: The patient presented to the Emergency Department on the above date and was hospitalized for further evaluation of their emergent condition. - New Patient This patient is new to me today: No - Critical Care Critical Care patient: No
[2016-08-22] MEDS: INSULIN DETEMIR 100 UNITS/ML MDV SQ SCH (23:32)
[2016-08-23] MEDS: INSULIN SLIDING SCALE (NOVOLOG) 1 VIAL SQ SCH ×2 (07:10→17:53)
[2016-08-23] MEDS: amLODIPine BESYLATE 10 MG TABLET (FP) GT SCH (11:05)
[2016-08-23] MEDS: METOPROLOL TARTRATE 50 MG TABLET (FP) GT SCH ×2 (11:05→21:57)
[2016-08-23] MEDS: LACTOBACILLUS ACIDOPHILUS 1 EACH TAB (FP) PO SCH (11:06)
[2016-08-23] MEDS: BACITRACIN 15 GM TUBE TOPICAL OINTMENT TP SCH (11:06)
[2016-08-23] MEDS: PANTOPRAZOLE SOD 40 MG SUSPENSION PACKET GT SCH (11:06)
[2016-08-23] MEDS: BACITRACIN/POLYMYXIN B SULFATE 15 GM TUBE TP SCH ×2 (11:06→21:57)
[2016-08-23] MEDS: LISINOPRIL 20 MG TABLET (FP) GT SCH (11:06)
[2016-08-23] MEDS: AMINO ACIDS/PROTEIN HYDROLYS SUGAR-FREE 30 ML PACKET PO SCH (11:06)
[2016-08-23] MEDS: MULTIVITAMINS THERAPEUTIC GT SCH (11:07)
--- NOTE | 2016-08-23 13:05 | PN ---
Progress Note (short form) - Note Progress Note: Subjective: The patient was seen and examined at the bedside, non-verbal. Tolerating room air well. Current Medications Generic Name Dose Route Start Last Admin Trade Name Freq PRN Reason Stop Dose Admin Acetaminophen 650 mg 05/26/16 14:23 06/01/16 01:47 Tylenol Oral Solution - GT 650 mg Q4H PRN Administration FEVER Amino Acids 30 ml 06/28/16 10:00 08/16/16 11:04 Prostat Sugar-Free Packet - PO 30 ml DAILY [facility] Administration Amlodipine Besylate 10 mg 12/30/15 10:00 08/16/16 11:03 Norvasc - GT 10 mg DAILY [facility] Administration Bacitracin 1 applic 08/09/16 16:15 08/16/16 11:35 Bacitracin - TP 1 applic DAILY [facility] Administration Bacitracin/Polymyxin B Sulfate 1 applic 07/25/16 22:00 08/16/16 11:35 Polysporin Ointment - TP 1 applic BID [facility] Administration Guaifenesin 10 ml 12/29/15 10:43 08/02/16 10:38 Robitussin Dm - PO 10 ml Q6H PRN Administration COUGH Insulin Aspart 1 vial 01/28/16 16:30 08/16/16 06:03 Novolog Vial Sliding Scale - SQ Not Given BIDI [facility] Protocol Insulin Detemir 14 units 05/05/16 22:00 08/15/16 22:29 Levemir Vial SQ 14 units HS [facility] Administration Lactobacillus Acidophilus 1 tab 12/30/15 10:00 08/16/16 11:02 Bacid - PO 1 tab DAILY [facility] Administration Lisinopril 40 mg 12/30/15 10:00 08/16/16 11:03 Prinivil GT 40 mg DAILY [facility] Administration Metoprolol Tartrate 150 mg 12/29/15 22:00 08/16/16 11:02 Lopressor - GT 150 mg BID [facility] Administration Metoprolol Tartrate 5 mg 12/29/15 10:43 Lopressor Injection - IVPB Q6H PRN HYPERTENSION Multivitamins 5 ml 12/30/15 10:00 08/16/16 11:04 Thera-Plus - GT 5 ml DAILY [facility] Administration Pantoprazole Sodium 40 mg 12/30/15 10:00 08/16/16 11:04 Protonix Packets For Oral Suspension - GT 40 mg DAILY [facility] Administration Scopolamine HBr 1 patch 05/20/16 15:45 08/15/16 18:13 Transderm-Scop - TD 1 patch Q72H [facility] Administration Objective: Vital Signs Period Temp Pulse Resp BP Sys/Santiago Pulse Ox Last 24 Hr 98.1 F-99.9 F 63-81 18-20 149-167/84-89 96-97 Physical Exam: General: No acute distress Neuro: Eye tracking to verbal stimulus Pulm: Tach collar capped on RA, CTA anteriorly CV: RRR, S1S2 Abd: Soft, non-distended. Normoactive bowel sounds. Peg tube c/d/i Ext: Warm, well-perfused. 2+ DP/PT bilaterally CBCD WBC 7.5 K/mm3 (4.0-10.0) 08/21/16 07:30 RBC 3.89 M/mm3 (4.00-5.60) L 08/21/16 07:30 Hgb 10.7 GM/dL (11.7-16.9) L 08/21/16 07:30 Hct 33.8 % (35.4-49) L 08/21/16 07:30 MCV 87.0 fl (80-96) 08/21/16 07:30 MCHC 31.7 g/dl (32.0-35.9) L 08/21/16 07:30 RDW 15.1 % (11.9-15.9) 08/21/16 07:30 Plt Count 213 K/MM3 (134-434) 08/21/16 07:30 MPV 9.7 fl (7.5-11.1) 08/21/16 07:30 CMP Sodium 142 mmol/L (136-145) 08/21/16 07:30 Potassium 4.0 mmol/L (3.5-5.1) 08/21/16 07:30 Chloride 107 mmol/L (98-107) 08/21/16 07:30 Carbon Dioxide 29 mmol/L (21-32) 08/21/16 07:30 Anion Gap 6 (8-16) L 08/21/16 07:30 BUN 23 mg/dL (7-18) H 08/21/16 07:30 Creatinine 0.9 mg/dL (0.7-1.3) 08/21/16 07:30 Creat Clearance w eGFR > 60 (>60) 08/21/16 07:30 Random Glucose 132 mg/dL (74-106) H 08/21/16 07:30 Calcium 9.6 mg/dL (8.5-10.1) 08/21/16 07:30 Total Bilirubin 0.3 mg/dL (0.2-1.0) 08/21/16 07:30 AST 16 U/L (15-37) 08/21/16 07:30 ALT 32 U/L (12-78) 08/21/16 07:30 Alkaline Phosphatase 128 U/L (45-117) H 08/21/16 07:30 Total Protein 8.1 g/dl (6.4-8.2) 08/21/16 07:30 Albumin 3.5 g/dl (3.4-5.0) 08/21/16 07:30 CARDIAC ENZYMES Creatine Kinase 62 IU/L (38-174) 06/28/15 09:35 Troponin I 0.07 ng/ml (0.03-0.5) D 07/09/15 05:00 Microbiology 08/09/16 22:48 Blood - Peripheral Venous Blood Culture - Final NO GROWTH AFTER 5 DAYS INCUBATION 08/09/16 22:48 Blood - Peripheral Venous Blood Culture - Final NO GROWTH AFTER 5 DAYS INCUBATION 08/10/16 05:01 Urine - Urine - Catheterized Urine Culture - Final NO GROWTH OBTAINED Assessment: 75 year old male with PMHx of HTN, IDDM, inguinal hernia who presented to the ED with diverticular bleed s/p Righ hemicolectomy with 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 Plan: 1. Anoxic brain injury s/p brainstem CVAs - Mental status unchanged 2. Respiratory failure secondary to anoxic brain injury - Cont O2 via nasal cannula (silicone Portex): Next trach change 08/30 - Duonebs PRN 3. HTN - Hold metoprolol due to periods of bradycardia - EKG with marked sinus arrhythmia, no significant change found when compared to prior EKG - Continue lisinopril, amlodipine, lopressor 4. Multiple pressure ulcers - Turn and position q2h 5. IDDM - Continue Levemir at 14u sq qhs - ISS BGM ACHS 6. F/E/N: - 70 ml/hr Glucerna 1.5, 50 ml/hr water flushes - Prostat daily 7. Prophylaxis: - SCDs bilaterally - No chemical anticoagulation 2/2 spontaneous gluteal bleed and severe GI bleed - Functional quadriplegia CODE STATUS: DNR Visit type - Emergency Visit Emergency Visit: Yes ED Registration Date: 06/27/15 Care time: The patient presented to the Emergency Department on the above date and was hospitalized for further evaluation of their emergent condition. - New Patient This patient is new to me today: No - Critical Care Critical Care patient: No
[2016-08-23] MEDS: INSULIN DETEMIR 100 UNITS/ML MDV SQ SCH (21:56)
[2016-08-24] MEDS: INSULIN SLIDING SCALE (NOVOLOG) 1 VIAL SQ SCH ×2 (06:50→17:24)
[2016-08-24] MEDS: LACTOBACILLUS ACIDOPHILUS 1 EACH TAB (FP) PO SCH (10:19)
[2016-08-24] MEDS: amLODIPine BESYLATE 10 MG TABLET (FP) GT SCH (10:19)
[2016-08-24] MEDS: METOPROLOL TARTRATE 50 MG TABLET (FP) GT SCH ×2 (10:19→21:45)
[2016-08-24] MEDS: PANTOPRAZOLE SOD 40 MG SUSPENSION PACKET GT SCH (10:20)
[2016-08-24] MEDS: BACITRACIN/POLYMYXIN B SULFATE 15 GM TUBE TP SCH ×2 (10:20→21:45)
[2016-08-24] MEDS: LISINOPRIL 20 MG TABLET (FP) GT SCH (10:20)
[2016-08-24] MEDS: AMINO ACIDS/PROTEIN HYDROLYS SUGAR-FREE 30 ML PACKET PO SCH (10:21)
[2016-08-24] MEDS: MULTIVITAMINS THERAPEUTIC GT SCH (10:22)
[2016-08-24] MEDS: BACITRACIN 15 GM TUBE TOPICAL OINTMENT TP SCH (10:22)
--- NOTE | 2016-08-24 13:01 | PN ---
Physical Exam: SUBJECTIVE: Patient seen and examined. Had facial grimacing and rubbing abdomen. He appears uncomfortable. OBJECTIVE: Vital Signs Period Temp Pulse Resp BP Sys/Santiago Pulse Ox Last 24 Hr 98.4 F-98.8 F 74-95 20-22 135-150/76-96 98-98 GENERAL: facial grimacing, appears uncomfortable HEAD: Normal with no signs of trauma. LUNGS: Breath sounds diminished HEART: Regular rate and rhythm, ABDOMEN: peg tube LUQ NEUROLOGICAL: at baseline PSYCH: at baseline Laboratory Results - last 24 hr 08/23/16 08/23/16 08/24/16 17:26 21:54 06:47 POC Glucometer 158 123 169 Active Medications Generic Name Dose Route Start Last Admin Trade Name Freq PRN Reason Stop Dose Admin Acetaminophen 650 mg 05/26/16 14:23 06/01/16 01:47 Tylenol Oral Solution - GT 650 mg Q4H PRN Administration FEVER Amino Acids 30 ml 06/28/16 10:00 08/24/16 10:21 Prostat Sugar-Free Packet - PO 30 ml DAILY KWAKU Administration Amlodipine Besylate 10 mg 12/30/15 10:00 08/24/16 10:19 Norvasc - GT 10 mg DAILY KWAKU Administration Bacitracin 1 applic 08/09/16 16:15 08/24/16 10:22 Bacitracin - TP 1 applic DAILY KWAKU Administration Bacitracin/Polymyxin B Sulfate 1 applic 07/25/16 22:00 08/24/16 10:20 Polysporin Ointment - TP 1 applic BID KWAKU Administration Guaifenesin 10 ml 12/29/15 10:43 08/02/16 10:38 Robitussin Dm - PO 10 ml Q6H PRN Administration COUGH Insulin Aspart 1 vial 01/28/16 16:30 08/24/16 06:50 Novolog Vial Sliding Scale - SQ 2 units BIDI KWAKU Administration Protocol Insulin Detemir 14 units 05/05/16 22:00 08/23/16 21:56 Levemir Vial SQ 14 units HS KWAKU Administration Lactobacillus Acidophilus 1 tab 12/30/15 10:00 08/24/16 10:19 Bacid - PO 1 tab DAILY KWAKU Administration Lisinopril 40 mg 12/30/15 10:00 08/24/16 10:20 Prinivil GT 40 mg DAILY KWAKU Administration Metoprolol Tartrate 150 mg 12/29/15 22:00 08/24/16 10:19 Lopressor - GT 150 mg BID KWAKU Administration Metoprolol Tartrate 5 mg 12/29/15 10:43 Lopressor Injection - IVPB Q6H PRN HYPERTENSION Morphine Sulfate 1 mg 08/24/16 12:22 Morphine Injection - IM 08/25/16 12:21 ONCE PRN PAIN Multivitamins 5 ml 12/30/15 10:00 08/24/16 10:22 Thera-Plus - GT 5 ml DAILY KWAKU Administration Pantoprazole Sodium 40 mg 12/30/15 10:00 08/24/16 10:20 Protonix Packets For Oral Suspension - GT 40 mg DAILY KWAKU Administration Scopolamine HBr 1 patch 05/20/16 15:45 08/21/16 18:19 Transderm-Scop - TD 1 patch Q72H KWAKU Administration Simethicone 40 mg 08/20/16 16:49 08/22/16 10:15 Mylicon Liquid - PEG 40 mg QID PRN Administration abdominal pain ASSESSMENT/PLAN: Patient is a 75 year old male with a past medical history of IDDM, HTN and inguinal hernia. He presented to the emergency room with a diverticular bleed s/p right hemicolectomy. His hospitalization was further complicated with a CVA with anoxic brain injury. He is s/p trach. He has a PEG tube placed. GI: Abdominal Pain - Facial grimacing again noted today, he appears to have periods of abdominal pain. Could it be due to tube feeds? gas? Abdominal xray ordered which shows no significant change from the previous abdominal xray, Peg tube in place - Morphine 1mg IM x 1 ordered for pain - Will change simethicone to scheduled in the morning and a PRN - Dietary consulted Aspiration Precautions - HOB elevated at all times due to high aspiration risk Cardiovascular: Hypertension: - on Lisinopril, Norvasc and Lopressor Neurology: -Anoxic brain injury s/p brainstem CVAs -Mental status at baseline Pulmonary: - On continuous oxygen (room air), tolerating it well. Has respiratory failure secondary to anoxic brain injury - duonebs as PRN Endocrine: Diabetes: - Continue Levemir - BGM checks at ac/hs F.E.N. -Glucerna with water flushes -Prostat for treatment of pressure ulcers - Labs on Sunday DVT Prophylaxis: - SCDs - both legs - No AC: contraindicated secondary to GI bleed Code Status: DNR Disposition: requires continued inpatient care. Visit type - Emergency Visit Emergency Visit: No - New Patient This patient is new to me today: No - Critical Care Critical Care patient: No - Discharge Referral Referred to [facility] Med P.C.: No
[2016-08-24] MEDS: SCOPOLAMINE HYDROBROMIDE 1 PATCH PATCH.TD72 TD SCH (18:48)
[2016-08-24] MEDS: INSULIN DETEMIR 100 UNITS/ML MDV SQ SCH (21:45)
[2016-08-25] MEDS: INSULIN SLIDING SCALE (NOVOLOG) 1 VIAL SQ SCH ×2 (06:03→19:10)
[2016-08-25] MEDS: LACTOBACILLUS ACIDOPHILUS 1 EACH TAB (FP) PO SCH (11:19)
[2016-08-25] MEDS: BACITRACIN 15 GM TUBE TOPICAL OINTMENT TP SCH (11:19)
[2016-08-25] MEDS: SIMETHICONE 40 MG/0.6 ML BOTTLE PEG SCH (11:19)
[2016-08-25] MEDS: AMINO ACIDS/PROTEIN HYDROLYS SUGAR-FREE 30 ML PACKET PO SCH (11:20)
[2016-08-25] MEDS: MULTIVITAMINS THERAPEUTIC GT SCH (11:20)
[2016-08-25] MEDS: BACITRACIN/POLYMYXIN B SULFATE 15 GM TUBE TP SCH ×2 (11:20→21:45)
[2016-08-25] MEDS: PANTOPRAZOLE SOD 40 MG SUSPENSION PACKET GT SCH (11:20)
[2016-08-25] MEDS: METOPROLOL TARTRATE 50 MG TABLET (FP) GT SCH ×2 (11:23→21:44)
[2016-08-25] MEDS: amLODIPine BESYLATE 10 MG TABLET (FP) GT SCH (11:23)
[2016-08-25] MEDS: LISINOPRIL 20 MG TABLET (FP) GT SCH (11:23)
--- NOTE | 2016-08-25 12:14 | PN ---
Physical Exam: SUBJECTIVE: Patient seen and examined, appears more comfortable today. He is non verbal at baseline. OBJECTIVE: Vital Signs Period Temp Pulse Resp BP Sys/Santiago Pulse Ox Last 24 Hr 97.5 F-98.2 F 64-89 20-20 142-149/84-92 98 Laboratory Results - last 24 hr 08/24/16 08/24/16 08/25/16 17:23 21:44 05:48 POC Glucometer 154 144 141 08/25/16 11:17 POC Glucometer 164 Active Medications Generic Name Dose Route Start Last Admin Trade Name Freq PRN Reason Stop Dose Admin Acetaminophen 650 mg 05/26/16 14:23 06/01/16 01:47 Tylenol Oral Solution - GT 650 mg Q4H PRN Administration FEVER Amino Acids 30 ml 06/28/16 10:00 08/25/16 11:20 Prostat Sugar-Free Packet - PO 30 ml DAILY KWAKU Administration Amlodipine Besylate 10 mg 12/30/15 10:00 08/25/16 11:23 Norvasc - GT 10 mg DAILY KWAKU Administration Bacitracin 1 applic 08/09/16 16:15 08/25/16 11:19 Bacitracin - TP 1 applic DAILY KWAKU Administration Bacitracin/Polymyxin B Sulfate 1 applic 07/25/16 22:00 08/25/16 11:20 Polysporin Ointment - TP 1 applic BID KWKAU Administration Guaifenesin 10 ml 12/29/15 10:43 08/02/16 10:38 Robitussin Dm - PO 10 ml Q6H PRN Administration COUGH Insulin Aspart 1 vial 01/28/16 16:30 08/25/16 06:03 Novolog Vial Sliding Scale - SQ Not Given BIDI [facility] Protocol Insulin Detemir 14 units 05/05/16 22:00 08/24/16 21:45 Levemir Vial SQ 14 units HS KWAKU Administration Lactobacillus Acidophilus 1 tab 12/30/15 10:00 08/25/16 11:19 Bacid - PO 1 tab DAILY KWAKU Administration Lisinopril 40 mg 12/30/15 10:00 08/25/16 11:23 Prinivil GT 40 mg DAILY KWAKU Administration Metoprolol Tartrate 150 mg 12/29/15 22:00 08/25/16 11:23 Lopressor - GT 150 mg BID KWAKU Administration Metoprolol Tartrate 5 mg 12/29/15 10:43 Lopressor Injection - IVPB Q6H PRN HYPERTENSION Multivitamins 5 ml 12/30/15 10:00 08/25/16 11:20 Thera-Plus - GT 5 ml DAILY KWAKU Administration Pantoprazole Sodium 40 mg 12/30/15 10:00 08/25/16 11:20 Protonix Packets For Oral Suspension - GT 40 mg DAILY KWAKU Administration Scopolamine HBr 1 patch 05/20/16 15:45 08/24/16 18:48 Transderm-Scop - TD 1 patch Q72H KWAKU Administration Simethicone 40 mg 08/25/16 10:00 08/25/16 11:19 Mylicon Liquid - PEG 40 mg DAILY KWAKU Administration ASSESSMENT/PLAN: Patient is a 75 year old male with a past medical history of IDDM, HTN and inguinal hernia. He presented to the emergency room with a diverticular bleed s/p right hemicolectomy. His hospitalization was further complicated with a CVA with anoxic brain injury. He is s/p trach. He has a PEG tube placed. GI: Abdominal Pain - Pt appears comfortable today, no signs of pain. Simethicone added scheduled in a.m. and PRN for abdominal discomfort Abdominal xray yesterday shows no significant change from the previous abdominal xray, Peg tube in place - Dietary following and is aware of the abdominal discomfort and the addition of Simethicone Aspiration Precautions - HOB elevated at all times due to high aspiration risk Cardiovascular: Hypertension: - on Lisinopril, Norvasc and Lopressor Neurology: -Anoxic brain injury s/p brainstem CVAs -Mental status at baseline Pulmonary: - On continuous oxygen (room air), tolerating it well. Has respiratory failure secondary to anoxic brain injury - duonebs as PRN - Trach collor capped Endocrine: Diabetes: - Continue Levemir - BGM checks at ac/hs F.E.N. -Glucerna 70cc/hr with water flushes -Prostat for treatment of pressure ulcers - Labs on Sunday - ordered DVT Prophylaxis: - SCDs - both legs - No AC: contraindicated secondary to GI bleed Code Status: DNR Disposition: requires continued inpatient care. Visit type - Emergency Visit Emergency Visit: No - New Patient This patient is new to me today: No - Critical Care Critical Care patient: No - Discharge Referral Referred to [facility] Med P.C.: No
[2016-08-25] MEDS: INSULIN DETEMIR 100 UNITS/ML MDV SQ SCH (21:44)
[2016-08-26] MEDS: INSULIN SLIDING SCALE (NOVOLOG) 1 VIAL SQ SCH ×2 (06:11→18:04)
--- NOTE | 2016-08-26 13:18 | PN ---
Progress Note (short form) - Note Progress Note: Subjective: The patient was seen and examined at the bedside, non-verbal. Tolerating room air well. Current Medications Generic Name Dose Route Start Last Admin Trade Name Freq PRN Reason Stop Dose Admin Acetaminophen 650 mg 05/26/16 14:23 06/01/16 01:47 Tylenol Oral Solution - GT 650 mg Q4H PRN Administration FEVER Amino Acids 30 ml 06/28/16 10:00 08/25/16 11:20 Prostat Sugar-Free Packet - PO 30 ml DAILY KWAKU Administration Amlodipine Besylate 10 mg 12/30/15 10:00 08/25/16 11:23 Norvasc - GT 10 mg DAILY KWAKU Administration Bacitracin 1 applic 08/09/16 16:15 08/25/16 11:19 Bacitracin - TP 1 applic DAILY KWAKU Administration Bacitracin/Polymyxin B Sulfate 1 applic 07/25/16 22:00 08/25/16 21:45 Polysporin Ointment - TP 1 applic BID KWAKU Administration Guaifenesin 10 ml 12/29/15 10:43 08/02/16 10:38 Robitussin Dm - PO 10 ml Q6H PRN Administration COUGH Insulin Aspart 1 vial 01/28/16 16:30 08/26/16 06:11 Novolog Vial Sliding Scale - SQ 2 units BIDI KWAKU Administration Protocol Insulin Detemir 14 units 05/05/16 22:00 08/25/16 21:44 Levemir Vial SQ 14 units HS KWAKU Administration Lactobacillus Acidophilus 1 tab 12/30/15 10:00 08/25/16 11:19 Bacid - PO 1 tab DAILY KWAKU Administration Lisinopril 40 mg 12/30/15 10:00 08/25/16 11:23 Prinivil GT 40 mg DAILY KWAKU Administration Metoprolol Tartrate 150 mg 12/29/15 22:00 08/25/16 21:44 Lopressor - GT 150 mg BID KWAKU Administration Metoprolol Tartrate 5 mg 12/29/15 10:43 Lopressor Injection - IVPB Q6H PRN HYPERTENSION Multivitamins 5 ml 12/30/15 10:00 08/25/16 11:20 Thera-Plus - GT 5 ml DAILY KWAKU Administration Pantoprazole Sodium 40 mg 12/30/15 10:00 08/25/16 11:20 Protonix Packets For Oral Suspension - GT 40 mg DAILY KWAKU Administration Scopolamine HBr 1 patch 05/20/16 15:45 08/24/16 18:48 Transderm-Scop - TD 1 patch Q72H KWAKU Administration Simethicone 40 mg 08/25/16 10:00 08/25/16 11:19 Mylicon Liquid - PEG 40 mg DAILY KWAKU Administration Objective: Vital Signs Period Temp Pulse Resp BP Sys/Santiago Pulse Ox Last 24 Hr 97.0 F-98.9 F 80-96 18-20 145-155/92-94 96-98 Physical Exam: General: No acute distress Neuro: Eye tracking to verbal stimulus Pulm: Tach collar capped on RA, CTA anteriorly CV: RRR, S1S2 Abd: Soft, non-distended. Normoactive bowel sounds. Peg tube c/d/i Ext: Warm, well-perfused. 2+ DP/PT bilaterally CBCD WBC 7.5 K/mm3 (4.0-10.0) 08/21/16 07:30 RBC 3.89 M/mm3 (4.00-5.60) L 08/21/16 07:30 Hgb 10.7 GM/dL (11.7-16.9) L 08/21/16 07:30 Hct 33.8 % (35.4-49) L 08/21/16 07:30 MCV 87.0 fl (80-96) 08/21/16 07:30 MCHC 31.7 g/dl (32.0-35.9) L 08/21/16 07:30 RDW 15.1 % (11.9-15.9) 08/21/16 07:30 Plt Count 213 K/MM3 (134-434) 08/21/16 07:30 MPV 9.7 fl (7.5-11.1) 08/21/16 07:30 CMP Sodium 142 mmol/L (136-145) 08/21/16 07:30 Potassium 4.0 mmol/L (3.5-5.1) 08/21/16 07:30 Chloride 107 mmol/L (98-107) 08/21/16 07:30 Carbon Dioxide 29 mmol/L (21-32) 08/21/16 07:30 Anion Gap 6 (8-16) L 08/21/16 07:30 BUN 23 mg/dL (7-18) H 08/21/16 07:30 Creatinine 0.9 mg/dL (0.7-1.3) 08/21/16 07:30 Creat Clearance w eGFR > 60 (>60) 08/21/16 07:30 Random Glucose 132 mg/dL (74-106) H 08/21/16 07:30 Calcium 9.6 mg/dL (8.5-10.1) 08/21/16 07:30 Total Bilirubin 0.3 mg/dL (0.2-1.0) 08/21/16 07:30 AST 16 U/L (15-37) 08/21/16 07:30 ALT 32 U/L (12-78) 08/21/16 07:30 Alkaline Phosphatase 128 U/L (45-117) H 08/21/16 07:30 Total Protein 8.1 g/dl (6.4-8.2) 08/21/16 07:30 Albumin 3.5 g/dl (3.4-5.0) 08/21/16 07:30 CARDIAC ENZYMES Creatine Kinase 62 IU/L (38-174) 06/28/15 09:35 Troponin I 0.07 ng/ml (0.03-0.5) D 07/09/15 05:00 Microbiology 08/09/16 22:48 Blood - Peripheral Venous Blood Culture - Final NO GROWTH AFTER 5 DAYS INCUBATION 08/09/16 22:48 Blood - Peripheral Venous Blood Culture - Final NO GROWTH AFTER 5 DAYS INCUBATION 08/10/16 05:01 Urine - Urine - Catheterized Urine Culture - Final NO GROWTH OBTAINED Assessment: 75 year old male with PMHx of HTN, IDDM, inguinal hernia who presented to the ED with diverticular bleed s/p Righ hemicolectomy with 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 Plan: 1. Anoxic brain injury s/p brainstem CVAs - Mental status unchanged 2. Respiratory failure secondary to anoxic brain injury - Cont O2 via nasal cannula (silicone Portex): Next trach change 08/30 - Duonebs PRN 3. HTN - Hold metoprolol due to periods of bradycardia - EKG with marked sinus arrhythmia, no significant change found when compared to prior EKG - Continue lisinopril, amlodipine, lopressor 4. Multiple pressure ulcers - Turn and position q2h 5. IDDM - Continue Levemir at 14u sq qhs - ISS BGM ACHS 6. F/E/N: - 70 ml/hr Glucerna 1.5, 50 ml/hr water flushes - Prostat daily 7. Prophylaxis: - SCDs bilaterally - No chemical anticoagulation 2/2 spontaneous gluteal bleed and severe GI bleed - Functional quadriplegia CODE STATUS: DNR Visit type - Emergency Visit Emergency Visit: Yes ED Registration Date: 06/27/15 Care time: The patient presented to the Emergency Department on the above date and was hospitalized for further evaluation of their emergent condition. - New Patient This patient is new to me today: No - Critical Care Critical Care patient: No
[2016-08-26] MEDS: LACTOBACILLUS ACIDOPHILUS 1 EACH TAB (FP) PO SCH (13:41)
[2016-08-26] MEDS: BACITRACIN 15 GM TUBE TOPICAL OINTMENT TP SCH (13:41)
[2016-08-26] MEDS: amLODIPine BESYLATE 10 MG TABLET (FP) GT SCH (13:42)
[2016-08-26] MEDS: LISINOPRIL 20 MG TABLET (FP) GT SCH (13:42)
[2016-08-26] MEDS: SIMETHICONE 40 MG/0.6 ML BOTTLE PEG SCH (13:42)
[2016-08-26] MEDS: METOPROLOL TARTRATE 50 MG TABLET (FP) GT SCH ×2 (13:42→23:58)
[2016-08-26] MEDS: PANTOPRAZOLE SOD 40 MG SUSPENSION PACKET GT SCH (13:43)
[2016-08-26] MEDS: BACITRACIN/POLYMYXIN B SULFATE 15 GM TUBE TP SCH ×2 (13:43→23:58)
[2016-08-26] MEDS: MULTIVITAMINS THERAPEUTIC GT SCH (13:43)
[2016-08-26] MEDS: AMINO ACIDS/PROTEIN HYDROLYS SUGAR-FREE 30 ML PACKET PO SCH (13:43)
[2016-08-27] MEDS: INSULIN DETEMIR 100 UNITS/ML MDV SQ SCH (00:10)
[2016-08-27] MEDS: DEXTROSE 5%-0.45% SALINE 1,000 ML IV SCH ×2 (02:00→13:57)
[2016-08-27] MEDS: INSULIN SLIDING SCALE (NOVOLOG) 1 VIAL SQ SCH ×2 (06:59→17:30)
[2016-08-27] MEDS: LACTOBACILLUS ACIDOPHILUS 1 EACH TAB (FP) PO SCH ×2 (10:00→15:15)
[2016-08-27] MEDS: AMINO ACIDS/PROTEIN HYDROLYS SUGAR-FREE 30 ML PACKET PO SCH ×2 (10:00→15:16)
[2016-08-27] MEDS: MULTIVITAMINS THERAPEUTIC GT SCH ×2 (10:00→15:31)
[2016-08-27] MEDS: amLODIPine BESYLATE 10 MG TABLET (FP) GT SCH ×2 (10:00→15:15)
[2016-08-27] MEDS: LISINOPRIL 20 MG TABLET (FP) GT SCH ×2 (10:00→15:15)
[2016-08-27] MEDS: METOPROLOL TARTRATE 50 MG TABLET (FP) GT SCH ×2 (10:00→15:14)
[2016-08-27] MEDS: SIMETHICONE 40 MG/0.6 ML BOTTLE PEG SCH ×2 (10:00→15:15)
--- NOTE | 2016-08-27 12:10 | PN ---
Progress Note (short form) - Note Progress Note: Subjective: The patient was seen and examined at the bedside, non-verbal. Tolerating room air well. G-tube clogged yesterday, awaiting GI to come in and replace it. Current Medications Generic Name Dose Route Start Last Admin Trade Name Freq PRN Reason Stop Dose Admin Acetaminophen 650 mg 05/26/16 14:23 06/01/16 01:47 Tylenol Oral Solution - GT 650 mg Q4H PRN Administration FEVER Amino Acids 30 ml 06/28/16 10:00 08/26/16 13:43 Prostat Sugar-Free Packet - PO 30 ml DAILY KWAKU Administration Amlodipine Besylate 10 mg 12/30/15 10:00 08/26/16 13:42 Norvasc - GT 10 mg DAILY KWAKU Administration Bacitracin 1 applic 08/09/16 16:15 08/26/16 13:41 Bacitracin - TP 1 applic DAILY KWAKU Administration Bacitracin/Polymyxin B Sulfate 1 applic 07/25/16 22:00 08/26/16 23:58 Polysporin Ointment - TP 1 applic BID KWAKU Administration Guaifenesin 10 ml 12/29/15 10:43 08/02/16 10:38 Robitussin Dm - PO 10 ml Q6H PRN Administration COUGH Dextrose/Sodium Chloride 1,000 mls @ 75 mls/hr 08/27/16 02:00 08/27/16 02:00 D5-1/2ns - IV 75 mls/hr ASDIR KWAKU Administration Insulin Aspart 1 vial 01/28/16 16:30 08/27/16 06:59 Novolog Vial Sliding Scale - SQ Not Given BIDI [facility] Protocol Insulin Detemir 14 units 05/05/16 22:00 08/27/16 00:10 Levemir Vial SQ Not Given HS KWAKU Lactobacillus Acidophilus 1 tab 12/30/15 10:00 08/26/16 13:41 Bacid - PO 1 tab DAILY KWAKU Administration Lisinopril 40 mg 12/30/15 10:00 08/26/16 13:42 Prinivil GT 40 mg DAILY KWAKU Administration Metoprolol Tartrate 150 mg 12/29/15 22:00 08/26/16 23:58 Lopressor - GT Not Given BID KWAKU Metoprolol Tartrate 5 mg 12/29/15 10:43 Lopressor Injection - IVPB Q6H PRN HYPERTENSION Multivitamins 5 ml 12/30/15 10:00 08/26/16 13:43 Thera-Plus - GT 5 ml DAILY KWAKU Administration Pantoprazole Sodium 40 mg 12/30/15 10:00 08/26/16 13:43 Protonix Packets For Oral Suspension - GT 40 mg DAILY KWAKU Administration Scopolamine HBr 1 patch 05/20/16 15:45 08/24/16 18:48 Transderm-Scop - TD 1 patch Q72H KWAKU Administration Simethicone 40 mg 08/25/16 10:00 08/26/16 13:42 Mylicon Liquid - PEG 40 mg DAILY KWAKU Administration Objective: Vital Signs Period Temp Pulse Resp BP Sys/Santiago Pulse Ox Last 24 Hr 98.1 F-98.4 F 76-108 18-22 138-155/80-95 96-96 Physical Exam: General: No acute distress Neuro: Eye tracking to verbal stimulus Pulm: Tach collar capped on RA, CTA anteriorly CV: RRR, S1S2 Abd: Soft, non-distended. Normoactive bowel sounds. Peg tube c/d/i Ext: Warm, well-perfused. 2+ DP/PT bilaterally CBCD WBC 7.5 K/mm3 (4.0-10.0) 08/21/16 07:30 RBC 3.89 M/mm3 (4.00-5.60) L 08/21/16 07:30 Hgb 10.7 GM/dL (11.7-16.9) L 08/21/16 07:30 Hct 33.8 % (35.4-49) L 08/21/16 07:30 MCV 87.0 fl (80-96) 08/21/16 07:30 MCHC 31.7 g/dl (32.0-35.9) L 08/21/16 07:30 RDW 15.1 % (11.9-15.9) 08/21/16 07:30 Plt Count 213 K/MM3 (134-434) 08/21/16 07:30 MPV 9.7 fl (7.5-11.1) 08/21/16 07:30 CMP Sodium 142 mmol/L (136-145) 08/21/16 07:30 Potassium 4.0 mmol/L (3.5-5.1) 08/21/16 07:30 Chloride 107 mmol/L (98-107) 08/21/16 07:30 Carbon Dioxide 29 mmol/L (21-32) 08/21/16 07:30 Anion Gap 6 (8-16) L 08/21/16 07:30 BUN 23 mg/dL (7-18) H 08/21/16 07:30 Creatinine 0.9 mg/dL (0.7-1.3) 08/21/16 07:30 Creat Clearance w eGFR > 60 (>60) 08/21/16 07:30 Random Glucose 132 mg/dL (74-106) H 08/21/16 07:30 Calcium 9.6 mg/dL (8.5-10.1) 08/21/16 07:30 Total Bilirubin 0.3 mg/dL (0.2-1.0) 08/21/16 07:30 AST 16 U/L (15-37) 08/21/16 07:30 ALT 32 U/L (12-78) 08/21/16 07:30 Alkaline Phosphatase 128 U/L (45-117) H 08/21/16 07:30 Total Protein 8.1 g/dl (6.4-8.2) 08/21/16 07:30 Albumin 3.5 g/dl (3.4-5.0) 08/21/16 07:30 CARDIAC ENZYMES Creatine Kinase 62 IU/L (38-174) 06/28/15 09:35 Troponin I 0.07 ng/ml (0.03-0.5) D 07/09/15 05:00 Microbiology 08/09/16 22:48 Blood - Peripheral Venous Blood Culture - Final NO GROWTH AFTER 5 DAYS INCUBATION 08/09/16 22:48 Blood - Peripheral Venous Blood Culture - Final NO GROWTH AFTER 5 DAYS INCUBATION 08/10/16 05:01 Urine - Urine - Catheterized Urine Culture - Final NO GROWTH OBTAINED Assessment: 75 year old male with PMHx of HTN, IDDM, inguinal hernia who presented to the ED with diverticular bleed s/p Righ hemicolectomy with 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 Plan: 1. Anoxic brain injury s/p brainstem CVAs - Mental status unchanged 2. Respiratory failure secondary to anoxic brain injury - Cont O2 via nasal cannula (silicone Portex): Next trach change 08/30 - Duonebs PRN 3. HTN - Hold metoprolol due to periods of bradycardia - EKG with marked sinus arrhythmia, no significant change found when compared to prior EKG - Continue lisinopril, amlodipine, lopressor 4. Multiple pressure ulcers - Turn and position q2h 5. IDDM - Continue Levemir at 14u sq qhs - ISS BGM ACHS 6. F/E/N: - 70 ml/hr Glucerna 1.5, 50 ml/hr water flushes - Prostat daily - Continue Zantac bid 7. Prophylaxis: - SCDs bilaterally - No chemical anticoagulation 2/2 spontaneous gluteal bleed and severe GI bleed - Functional quadriplegia CODE STATUS: DNR Visit type - Emergency Visit Emergency Visit: Yes ED Registration Date: 06/27/15 Care time: The patient presented to the Emergency Department on the above date and was hospitalized for further evaluation of their emergent condition. - New Patient This patient is new to me today: No - Critical Care Critical Care patient: No
[2016-08-27] MEDS: RANITIDINE HCL 150 MG/10 ML UNIT-DOSE CUP PO SCH ×2 (12:15→15:14)
[2016-08-27] MEDS: PANTOPRAZOLE SOD 40 MG SUSPENSION PACKET GT SCH (13:48)
[2016-08-27] MEDS: BACITRACIN 15 GM TUBE TOPICAL OINTMENT TP SCH (13:56)
[2016-08-27] MEDS: BACITRACIN/POLYMYXIN B SULFATE 15 GM TUBE TP SCH (13:56)
[2016-08-27] MEDS: SCOPOLAMINE HYDROBROMIDE 1 PATCH PATCH.TD72 TD SCH (15:31)
[2016-08-28] MEDS: INSULIN DETEMIR 100 UNITS/ML MDV SQ SCH (00:05)
[2016-08-28] MEDS: RANITIDINE HCL 150 MG/10 ML UNIT-DOSE CUP PO SCH ×2 (00:06→11:09)
[2016-08-28] MEDS: METOPROLOL TARTRATE 50 MG TABLET (FP) GT SCH ×2 (00:06→11:09)
[2016-08-28] MEDS: BACITRACIN/POLYMYXIN B SULFATE 15 GM TUBE TP SCH ×2 (00:07→11:11)
[2016-08-28] MEDS: INSULIN SLIDING SCALE (NOVOLOG) 1 VIAL SQ SCH ×2 (06:07→17:20)
[2016-08-28 07:27] LABS: BASOPHIL 1.6 % (0-2.0); EOSINOPHIL 4.4 % (0-4.5); MCH 28.8 pg (25.7-33.7); MCHC 33.1 g/dl (32.0-35.9); MEAN PLT VOLUME 9.9 fl (7.5-11.1); NEUTROPHILS 62.7 % (42.8-82.8); PLATELET COUNT 201 K/MM3 (134-434); RDW 14.6 % (11.9-15.9)
[2016-08-28 07:55] LABS: ALBUMIN 3.3 g/dl (3.4-5.0); ALK PHOS 112 U/L (45-117); ANION GAP 10 (8-16); BILIRUBIN,TOTAL 0.6 mg/dL (0.2-1.0); CALCIUM 9.6 mg/dL (8.5-10.1); CO2 27 mmol/L (21-32); GLUCOSE,RANDOM 130 mg/dL (74-106); SGOT/AST 17 U/L (15-37); SGPT/ALT 43 U/L (12-78); TOT PROT 8.2 g/dl (6.4-8.2)
[2016-08-28] MEDS: LISINOPRIL 20 MG TABLET (FP) GT SCH (11:09)
[2016-08-28] MEDS: AMINO ACIDS/PROTEIN HYDROLYS SUGAR-FREE 30 ML PACKET PO SCH (11:09)
[2016-08-28] MEDS: amLODIPine BESYLATE 10 MG TABLET (FP) GT SCH (11:10)
[2016-08-28] MEDS: LACTOBACILLUS ACIDOPHILUS 1 EACH TAB (FP) PO SCH (11:10)
[2016-08-28] MEDS: SIMETHICONE 40 MG/0.6 ML BOTTLE PEG SCH (11:10)
[2016-08-28] MEDS: BACITRACIN 15 GM TUBE TOPICAL OINTMENT TP SCH (11:10)
[2016-08-28] MEDS: MULTIVITAMINS THERAPEUTIC GT SCH (11:11)
--- NOTE | 2016-08-28 13:22 | PN ---
Progress Note (short form) - Note Progress Note: Subjective: The patient was seen and examined at the bedside, non-verbal. Tolerating room air well. G-tube replaced yesterday Current Medications Generic Name Dose Route Start Last Admin Trade Name Freq PRN Reason Stop Dose Admin Acetaminophen 650 mg 05/26/16 14:23 06/01/16 01:47 Tylenol Oral Solution - GT 650 mg Q4H PRN Administration FEVER Amino Acids 30 ml 06/28/16 10:00 08/28/16 11:09 Prostat Sugar-Free Packet - PO 30 ml DAILY KWAKU Administration Amlodipine Besylate 10 mg 12/30/15 10:00 08/28/16 11:10 Norvasc - GT 10 mg DAILY KWAKU Administration Bacitracin 1 applic 08/09/16 16:15 08/28/16 11:10 Bacitracin - TP 1 applic DAILY KWAKU Administration Bacitracin/Polymyxin B Sulfate 1 applic 07/25/16 22:00 08/28/16 11:11 Polysporin Ointment - TP 1 applic BID KWAKU Administration Guaifenesin 10 ml 12/29/15 10:43 08/02/16 10:38 Robitussin Dm - PO 10 ml Q6H PRN Administration COUGH Insulin Aspart 1 vial 01/28/16 16:30 08/28/16 06:07 Novolog Vial Sliding Scale - SQ Not Given BIDI [facility] Protocol Insulin Detemir 14 units 05/05/16 22:00 08/28/16 00:05 Levemir Vial SQ 14 units HS KWAKU Administration Lactobacillus Acidophilus 1 tab 12/30/15 10:00 08/28/16 11:10 Bacid - PO 1 tab DAILY KWAKU Administration Lisinopril 40 mg 12/30/15 10:00 08/28/16 11:09 Prinivil GT 40 mg DAILY KWAKU Administration Metoprolol Tartrate 150 mg 12/29/15 22:00 08/28/16 11:09 Lopressor - GT 150 mg BID KWAKU Administration Metoprolol Tartrate 5 mg 12/29/15 10:43 Lopressor Injection - IVPB Q6H PRN HYPERTENSION Multivitamins 5 ml 12/30/15 10:00 08/28/16 11:11 Thera-Plus - GT 5 ml DAILY KWAKU Administration Ranitidine HCl 150 mg 08/27/16 12:15 10/31/16 11:09 Zantac Oral Solution - PO 150 mg BID KWAKU Administration Scopolamine HBr 1 patch 05/20/16 15:45 08/27/16 15:31 Transderm-Scop - TD 1 patch Q72H KWAKU Administration Simethicone 40 mg 08/25/16 10:00 08/28/16 11:10 Mylicon Liquid - PEG 40 mg DAILY KWAKU Administration Objective: Vital Signs Period Temp Pulse Resp BP Sys/Santiago Pulse Ox Last 24 Hr 97.2 F-98.6 F 70-110 18-20 140-158/83-100 96-96 Physical Exam: General: No acute distress Neuro: Eye tracking to verbal stimulus Pulm: Tach collar capped on RA, CTA anteriorly CV: RRR, S1S2 Abd: Soft, non-distended. Normoactive bowel sounds. Peg tube c/d/i Ext: Warm, well-perfused. 2+ DP/PT bilaterally CBCD WBC 9.0 K/mm3 (4.0-10.0) 08/28/16 05:35 RBC 4.12 M/mm3 (4.00-5.60) 08/28/16 05:35 Hgb 11.9 GM/dL (11.7-16.9) D 08/28/16 05:35 Hct 35.8 % (35.4-49) 08/28/16 05:35 MCV 87.0 fl (80-96) 08/28/16 05:35 MCHC 33.1 g/dl (32.0-35.9) 08/28/16 05:35 RDW 14.6 % (11.9-15.9) 08/28/16 05:35 Plt Count 201 K/MM3 (134-434) 08/28/16 05:35 MPV 9.9 fl (7.5-11.1) 08/28/16 05:35 CMP Sodium 146 mmol/L (136-145) H 08/28/16 05:35 Potassium 3.9 mmol/L (3.5-5.1) 08/28/16 05:35 Chloride 109 mmol/L (98-107) H 08/28/16 05:35 Carbon Dioxide 27 mmol/L (21-32) 08/28/16 05:35 Anion Gap 10 (8-16) 08/28/16 05:35 BUN 22 mg/dL (7-18) H 08/28/16 05:35 Creatinine 1.0 mg/dL (0.7-1.3) 08/28/16 05:35 Creat Clearance w eGFR > 60 (>60) 08/28/16 05:35 Random Glucose 130 mg/dL (74-106) H 08/28/16 05:35 Calcium 9.6 mg/dL (8.5-10.1) 08/28/16 05:35 Total Bilirubin 0.6 mg/dL (0.2-1.0) D 08/28/16 05:35 AST 17 U/L (15-37) 08/28/16 05:35 ALT 43 U/L (12-78) D 08/28/16 05:35 Alkaline Phosphatase 112 U/L (45-117) 08/28/16 05:35 Total Protein 8.2 g/dl (6.4-8.2) 08/28/16 05:35 Albumin 3.3 g/dl (3.4-5.0) L 08/28/16 05:35 CARDIAC ENZYMES Creatine Kinase 62 IU/L (38-174) 06/28/15 09:35 Troponin I 0.07 ng/ml (0.03-0.5) D 07/09/15 05:00 Assessment: 75 year old male with PMHx of HTN, IDDM, inguinal hernia who presented to the ED with diverticular bleed s/p Righ hemicolectomy with 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 Plan: 1. Anoxic brain injury s/p brainstem CVAs - Mental status unchanged 2. Respiratory failure secondary to anoxic brain injury - Cont O2 via room air (silicone Portex): Next trach change 08/30 - Duonebs PRN 3. HTN - Continue lisinopril, amlodipine, lopressor 4. Multiple pressure ulcers - Turn and position q2h 5. IDDM - Continue Levemir at 14u sq qhs - ISS BGM ACHS 6. F/E/N: - 70 ml/hr Glucerna 1.5, 50 ml/hr water flushes - Prostat daily - Continue Zantac bid 7. Prophylaxis: - SCDs bilaterally - No chemical anticoagulation 2/2 spontaneous gluteal bleed and severe GI bleed - Functional quadriplegia CODE STATUS: DNR Visit type - Emergency Visit Emergency Visit: Yes ED Registration Date: 06/27/15 Care time: The patient presented to the Emergency Department on the above date and was hospitalized for further evaluation of their emergent condition. - New Patient This patient is new to me today: No - Critical Care Critical Care patient: No
[2016-08-29] MEDS: INSULIN SLIDING SCALE (NOVOLOG) 1 VIAL SQ SCH ×5 (00:17→23:13)
[2016-08-29] MEDS: METOPROLOL TARTRATE 50 MG TABLET (FP) GT SCH ×3 (00:20→23:13)
[2016-08-29] MEDS: BACITRACIN/POLYMYXIN B SULFATE 15 GM TUBE TP SCH ×3 (00:20→23:13)
[2016-08-29] MEDS: INSULIN DETEMIR 100 UNITS/ML MDV SQ SCH ×2 (00:20→23:12)
[2016-08-29] MEDS: RANITIDINE HCL 150 MG/10 ML UNIT-DOSE CUP PO SCH ×3 (00:20→23:14)
[2016-08-29] MEDS: amLODIPine BESYLATE 10 MG TABLET (FP) GT SCH (10:21)
[2016-08-29] MEDS: LACTOBACILLUS ACIDOPHILUS 1 EACH TAB (FP) PO SCH (10:21)
[2016-08-29] MEDS: BACITRACIN 15 GM TUBE TOPICAL OINTMENT TP SCH (10:21)
[2016-08-29] MEDS: LISINOPRIL 20 MG TABLET (FP) GT SCH (10:21)
[2016-08-29] MEDS: MULTIVITAMINS THERAPEUTIC GT SCH (10:22)
[2016-08-29] MEDS: AMINO ACIDS/PROTEIN HYDROLYS SUGAR-FREE 30 ML PACKET PO SCH (10:22)
[2016-08-29] MEDS: SIMETHICONE 40 MG/0.6 ML BOTTLE PEG SCH (10:22)
--- NOTE | 2016-08-29 12:07 | PN ---
Progress Note (short form) - Note Progress Note: Subjective: The patient was seen and examined at the bedside, non-verbal. Tolerating room air well. Current Medications Generic Name Dose Route Start Last Admin Trade Name Freq PRN Reason Stop Dose Admin Acetaminophen 650 mg 05/26/16 14:23 06/01/16 01:47 Tylenol Oral Solution - GT 650 mg Q4H PRN Administration FEVER Amino Acids 30 ml 06/28/16 10:00 08/28/16 11:09 Prostat Sugar-Free Packet - PO 30 ml DAILY KWAKU Administration Amlodipine Besylate 10 mg 12/30/15 10:00 08/28/16 11:10 Norvasc - GT 10 mg DAILY KWAKU Administration Bacitracin 1 applic 08/09/16 16:15 08/28/16 11:10 Bacitracin - TP 1 applic DAILY KWAKU Administration Bacitracin/Polymyxin B Sulfate 1 applic 07/25/16 22:00 08/28/16 11:11 Polysporin Ointment - TP 1 applic BID KWAKU Administration Guaifenesin 10 ml 12/29/15 10:43 08/02/16 10:38 Robitussin Dm - PO 10 ml Q6H PRN Administration COUGH Insulin Aspart 1 vial 01/28/16 16:30 08/28/16 06:07 Novolog Vial Sliding Scale - SQ Not Given BIDI [facility] Protocol Insulin Detemir 14 units 05/05/16 22:00 08/28/16 00:05 Levemir Vial SQ 14 units HS KWAKU Administration Lactobacillus Acidophilus 1 tab 12/30/15 10:00 08/28/16 11:10 Bacid - PO 1 tab DAILY KWAKU Administration Lisinopril 40 mg 12/30/15 10:00 08/28/16 11:09 Prinivil GT 40 mg DAILY KWAKU Administration Metoprolol Tartrate 150 mg 12/29/15 22:00 08/28/16 11:09 Lopressor - GT 150 mg BID KWAKU Administration Metoprolol Tartrate 5 mg 12/29/15 10:43 Lopressor Injection - IVPB Q6H PRN HYPERTENSION Multivitamins 5 ml 12/30/15 10:00 08/28/16 11:11 Thera-Plus - GT 5 ml DAILY KWAKU Administration Ranitidine HCl 150 mg 08/27/16 12:15 08/28/16 11:09 Zantac Oral Solution - PO 150 mg BID KWAKU Administration Scopolamine HBr 1 patch 05/20/16 15:45 08/27/16 15:31 Transderm-Scop - TD 1 patch Q72H KWAKU Administration Simethicone 40 mg 08/25/16 10:00 08/28/16 11:10 Mylicon Liquid - PEG 40 mg DAILY KWAKU Administration Objective: Vital Signs Period Temp Pulse Resp BP Sys/Santiago Pulse Ox Last 24 Hr 98 F-100.8 F 72-79 18-20 139-151/83-86 96 Physical Exam: General: No acute distress Neuro: Eye tracking to verbal stimulus Pulm: Tach collar capped on RA, CTA anteriorly CV: RRR, S1S2 Abd: Soft, non-distended. Normoactive bowel sounds. Peg tube c/d/i Ext: Warm, well-perfused. 2+ DP/PT bilaterally CBCD WBC 9.0 K/mm3 (4.0-10.0) 08/28/16 05:35 RBC 4.12 M/mm3 (4.00-5.60) 08/28/16 05:35 Hgb 11.9 GM/dL (11.7-16.9) D 08/28/16 05:35 Hct 35.8 % (35.4-49) 08/28/16 05:35 MCV 87.0 fl (80-96) 08/28/16 05:35 MCHC 33.1 g/dl (32.0-35.9) 08/28/16 05:35 RDW 14.6 % (11.9-15.9) 08/28/16 05:35 Plt Count 201 K/MM3 (134-434) 08/28/16 05:35 MPV 9.9 fl (7.5-11.1) 08/28/16 05:35 CMP Sodium 146 mmol/L (136-145) H 08/28/16 05:35 Potassium 3.9 mmol/L (3.5-5.1) 08/28/16 05:35 Chloride 109 mmol/L (98-107) H 08/28/16 05:35 Carbon Dioxide 27 mmol/L (21-32) 08/28/16 05:35 Anion Gap 10 (8-16) 08/28/16 05:35 BUN 22 mg/dL (7-18) H 08/28/16 05:35 Creatinine 1.0 mg/dL (0.7-1.3) 08/28/16 05:35 Creat Clearance w eGFR > 60 (>60) 08/28/16 05:35 Random Glucose 130 mg/dL (74-106) H 08/28/16 05:35 Calcium 9.6 mg/dL (8.5-10.1) 08/28/16 05:35 Total Bilirubin 0.6 mg/dL (0.2-1.0) D 08/28/16 05:35 AST 17 U/L (15-37) 08/28/16 05:35 ALT 43 U/L (12-78) D 08/28/16 05:35 Alkaline Phosphatase 112 U/L (45-117) 08/28/16 05:35 Total Protein 8.2 g/dl (6.4-8.2) 08/28/16 05:35 Albumin 3.3 g/dl (3.4-5.0) L 08/28/16 05:35 CARDIAC ENZYMES Creatine Kinase 62 IU/L (38-174) 06/28/15 09:35 Troponin I 0.07 ng/ml (0.03-0.5) D 07/09/15 05:00 Assessment: 75 year old male with PMHx of HTN, IDDM, inguinal hernia who presented to the ED with diverticular bleed s/p Righ hemicolectomy with 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 Plan: 1. Anoxic brain injury s/p brainstem CVAs - Mental status unchanged 2. Respiratory failure secondary to anoxic brain injury - Cont O2 via room air (silicone Portex): Next trach change 08/30 - Duonebs PRN 3. HTN - Continue lisinopril, amlodipine, lopressor 4. Multiple pressure ulcers - Turn and position q2h 5. IDDM - Continue Levemir at 14u sq qhs - ISS BGM ACHS 6. F/E/N: - 70 ml/hr Glucerna 1.5, 50 ml/hr water flushes - Prostat daily - Continue Zantac bid 7. Prophylaxis: - SCDs bilaterally - No chemical anticoagulation 2/2 spontaneous gluteal bleed and severe GI bleed - Functional quadriplegia CODE STATUS: DNR Visit type - Emergency Visit Emergency Visit: Yes ED Registration Date: 06/27/15 Care time: The patient presented to the Emergency Department on the above date and was hospitalized for further evaluation of their emergent condition. - New Patient This patient is new to me today: No - Critical Care Critical Care patient: No
[2016-08-30] MEDS: INSULIN SLIDING SCALE (NOVOLOG) 1 VIAL SQ SCH ×4 (06:25→22:19)
--- NOTE | 2016-08-30 07:49 | PN ---
Progress Note (short form) - Note Progress Note: Subjective: The patient was seen and examined at the bedside, non-verbal. Tolerating room air well. Trach due to be changed today Current Medications Generic Name Dose Route Start Last Admin Trade Name Freq PRN Reason Stop Dose Admin Acetaminophen 650 mg 05/26/16 14:23 06/01/16 01:47 Tylenol Oral Solution - GT 650 mg Q4H PRN Administration FEVER Amino Acids 30 ml 06/28/16 10:00 08/29/16 10:22 Prostat Sugar-Free Packet - PO 30 ml DAILY KWAKU Administration Amlodipine Besylate 10 mg 12/30/15 10:00 08/29/16 10:21 Norvasc - GT 10 mg DAILY KWAKU Administration Bacitracin 1 applic 08/09/16 16:15 08/29/16 10:21 Bacitracin - TP 1 applic DAILY KWAKU Administration Bacitracin/Polymyxin B Sulfate 1 applic 07/25/16 22:00 08/29/16 23:13 Polysporin Ointment - TP 1 applic BID KWAKU Administration Guaifenesin 10 ml 12/29/15 10:43 08/02/16 10:38 Robitussin Dm - PO 10 ml Q6H PRN Administration COUGH Insulin Aspart 1 vial 08/28/16 22:00 08/30/16 06:25 Novolog Vial Sliding Scale - SQ Not Given ACHS [facility] Protocol Insulin Detemir 14 units 05/05/16 22:00 08/29/16 23:12 Levemir Vial SQ 14 units HS KWAKU Administration Lactobacillus Acidophilus 1 tab 12/30/15 10:00 08/29/16 10:21 Bacid - PO 1 tab DAILY KWAKU Administration Lisinopril 40 mg 12/30/15 10:00 08/29/16 10:21 Prinivil GT 40 mg DAILY KWAKU Administration Metoprolol Tartrate 150 mg 12/29/15 22:00 08/29/16 23:13 Lopressor - GT 150 mg BID KWAKU Administration Metoprolol Tartrate 5 mg 12/29/15 10:43 Lopressor Injection - IVPB Q6H PRN HYPERTENSION Multivitamins 5 ml 12/30/15 10:00 08/29/16 10:22 Thera-Plus - GT 5 ml DAILY KWAKU Administration Ranitidine HCl 150 mg 08/27/16 12:15 08/29/16 23:14 Zantac Oral Solution - PO 150 mg BID KWAKU Administration Scopolamine HBr 1 patch 05/20/16 15:45 08/27/16 15:31 Transderm-Scop - TD 1 patch Q72H KWAKU Administration Simethicone 40 mg 08/25/16 10:00 08/29/16 10:22 Mylicon Liquid - PEG 40 mg DAILY KWAKU Administration Objective: Vital Signs Period Temp Pulse Resp BP Sys/Santiago Pulse Ox Last 24 Hr 97.5 F-99.3 F 68-101 18-20 141-158/74-96 100-100 Physical Exam: General: No acute distress Neuro: Eye tracking to verbal stimulus Pulm: Tach collar capped on RA, CTA anteriorly CV: RRR, S1S2 Abd: Soft, non-distended. Normoactive bowel sounds. Peg tube c/d/i Ext: Warm, well-perfused. 2+ DP/PT bilaterally CBCD WBC 9.0 K/mm3 (4.0-10.0) 08/28/16 05:35 RBC 4.12 M/mm3 (4.00-5.60) 08/28/16 05:35 Hgb 11.9 GM/dL (11.7-16.9) D 08/28/16 05:35 Hct 35.8 % (35.4-49) 08/28/16 05:35 MCV 87.0 fl (80-96) 08/28/16 05:35 MCHC 33.1 g/dl (32.0-35.9) 08/28/16 05:35 RDW 14.6 % (11.9-15.9) 08/28/16 05:35 Plt Count 201 K/MM3 (134-434) 08/28/16 05:35 MPV 9.9 fl (7.5-11.1) 08/28/16 05:35 CMP Sodium 146 mmol/L (136-145) H 08/28/16 05:35 Potassium 3.9 mmol/L (3.5-5.1) 08/28/16 05:35 Chloride 109 mmol/L (98-107) H 08/28/16 05:35 Carbon Dioxide 27 mmol/L (21-32) 08/28/16 05:35 Anion Gap 10 (8-16) 08/28/16 05:35 BUN 22 mg/dL (7-18) H 08/28/16 05:35 Creatinine 1.0 mg/dL (0.7-1.3) 08/28/16 05:35 Creat Clearance w eGFR > 60 (>60) 08/28/16 05:35 Random Glucose 130 mg/dL (74-106) H 08/28/16 05:35 Calcium 9.6 mg/dL (8.5-10.1) 08/28/16 05:35 Total Bilirubin 0.6 mg/dL (0.2-1.0) D 08/28/16 05:35 AST 17 U/L (15-37) 08/28/16 05:35 ALT 43 U/L (12-78) D 08/28/16 05:35 Alkaline Phosphatase 112 U/L (45-117) 08/28/16 05:35 Total Protein 8.2 g/dl (6.4-8.2) 08/28/16 05:35 Albumin 3.3 g/dl (3.4-5.0) L 08/28/16 05:35 CARDIAC ENZYMES Creatine Kinase 62 IU/L (38-174) 06/28/15 09:35 Troponin I 0.07 ng/ml (0.03-0.5) D 07/09/15 05:00 Assessment: 75 year old male with PMHx of HTN, IDDM, inguinal hernia who presented to the ED with diverticular bleed s/p Righ hemicolectomy with 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 Plan: 1. Anoxic brain injury s/p brainstem CVAs - Mental status unchanged 2. Respiratory failure secondary to anoxic brain injury - Cont O2 via room air (silicone Portex): Next trach change 08/30 - Duonebs PRN 3. HTN - Continue lisinopril, amlodipine, lopressor 4. Multiple pressure ulcers - Turn and position q2h 5. IDDM - Continue Levemir at 14u sq qhs - ISS BGM ACHS 6. F/E/N: - 70 ml/hr Glucerna 1.5, 50 ml/hr water flushes - Prostat daily - Continue Zantac bid 7. Prophylaxis: - SCDs bilaterally - No chemical anticoagulation 2/2 spontaneous gluteal bleed and severe GI bleed - Functional quadriplegia CODE STATUS: DNR Visit type - Emergency Visit Emergency Visit: Yes ED Registration Date: 06/27/15 Care time: The patient presented to the Emergency Department on the above date and was hospitalized for further evaluation of their emergent condition. - New Patient This patient is new to me today: No - Critical Care Critical Care patient: No
[2016-08-30] MEDS: BACITRACIN 15 GM TUBE TOPICAL OINTMENT TP SCH (10:00)
[2016-08-30] MEDS: BACITRACIN/POLYMYXIN B SULFATE 15 GM TUBE TP SCH ×2 (10:00→22:23)
[2016-08-30] MEDS: METOPROLOL TARTRATE 50 MG TABLET (FP) GT SCH ×2 (11:15→22:23)
[2016-08-30] MEDS: SIMETHICONE 40 MG/0.6 ML BOTTLE PEG SCH (11:16)
[2016-08-30] MEDS: AMINO ACIDS/PROTEIN HYDROLYS SUGAR-FREE 30 ML PACKET PO SCH (11:17)
[2016-08-30] MEDS: RANITIDINE HCL 150 MG/10 ML UNIT-DOSE CUP PO SCH ×2 (11:17→22:23)
[2016-08-30] MEDS: LISINOPRIL 20 MG TABLET (FP) GT SCH (11:17)
[2016-08-30] MEDS: LACTOBACILLUS ACIDOPHILUS 1 EACH TAB (FP) PO SCH (11:18)
[2016-08-30] MEDS: amLODIPine BESYLATE 10 MG TABLET (FP) GT SCH (11:18)
[2016-08-30] MEDS: SCOPOLAMINE HYDROBROMIDE 1 PATCH PATCH.TD72 TD SCH (15:13)
[2016-08-30] MEDS: MULTIVITAMINS THERAPEUTIC GT SCH (15:41)
[2016-08-30] MEDS: INSULIN DETEMIR 100 UNITS/ML MDV SQ SCH (22:23)
[2016-08-31] MEDS: INSULIN SLIDING SCALE (NOVOLOG) 1 VIAL SQ SCH ×4 (06:13→22:21)
[2016-08-31] MEDS: SIMETHICONE 40 MG/0.6 ML BOTTLE PEG SCH (11:46)
[2016-08-31] MEDS: METOPROLOL TARTRATE 50 MG TABLET (FP) GT SCH ×2 (11:46→22:46)
[2016-08-31] MEDS: LISINOPRIL 20 MG TABLET (FP) GT SCH (11:46)
[2016-08-31] MEDS: LACTOBACILLUS ACIDOPHILUS 1 EACH TAB (FP) PO SCH (11:46)
[2016-08-31] MEDS: AMINO ACIDS/PROTEIN HYDROLYS SUGAR-FREE 30 ML PACKET PO SCH (11:47)
[2016-08-31] MEDS: amLODIPine BESYLATE 10 MG TABLET (FP) GT SCH (11:47)
[2016-08-31] MEDS: RANITIDINE HCL 150 MG/10 ML UNIT-DOSE CUP PO SCH ×2 (11:47→22:46)
[2016-08-31] MEDS: BACITRACIN/POLYMYXIN B SULFATE 15 GM TUBE TP SCH ×2 (11:55→22:46)
[2016-08-31] MEDS: BACITRACIN 15 GM TUBE TOPICAL OINTMENT TP SCH (11:55)
--- NOTE | 2016-08-31 14:49 | PN ---
Physical Exam: SUBJECTIVE: Patient seen and examined. He appeared comfortable at rest. He is non verbal at baseline, makes brief eye contact. OBJECTIVE: GENERAL: appears comfortable HEAD: Normal with no signs of trauma. LUNGS: Breath sounds diminished but clear anteriorly HEART: Regular rate and rhythm, ABDOMEN: peg tube LUQ NEUROLOGICAL: at baseline PSYCH: at baseline Vital Signs Period Temp Pulse Resp BP Sys/Santiago Pulse Ox Last 24 Hr 98.1 F-98.2 F 57-97 20-22 131-145/75-95 95-100 Laboratory Results - last 24 hr 08/30/16 08/30/16 08/31/16 18:01 22:17 06:07 POC Glucometer 135 137 150 08/31/16 12:54 POC Glucometer 126 Active Medications Generic Name Dose Route Start Last Admin Trade Name Freq PRN Reason Stop Dose Admin Acetaminophen 650 mg 05/26/16 14:23 06/01/16 01:47 Tylenol Oral Solution - GT 650 mg Q4H PRN Administration FEVER Amino Acids 30 ml 06/28/16 10:00 08/31/16 11:47 Prostat Sugar-Free Packet - PO 30 ml DAILY KWAKU Administration Amlodipine Besylate 10 mg 12/30/15 10:00 08/31/16 11:47 Norvasc - GT 10 mg DAILY KWAKU Administration Bacitracin 1 applic 08/09/16 16:15 08/31/16 11:55 Bacitracin - TP 1 applic DAILY KWAKU Administration Bacitracin/Polymyxin B Sulfate 1 applic 07/25/16 22:00 08/31/16 11:55 Polysporin Ointment - TP 1 applic BID KWAKU Administration Guaifenesin 10 ml 12/29/15 10:43 08/02/16 10:38 Robitussin Dm - PO 10 ml Q6H PRN Administration COUGH Insulin Aspart 1 vial 08/28/16 22:00 08/31/16 13:37 Novolog Vial Sliding Scale - SQ Not Given ACHS KWAKU Protocol Insulin Detemir 14 units 05/05/16 22:00 08/30/16 22:23 Levemir Vial SQ 14 units HS KWAKU Administration Lactobacillus Acidophilus 1 tab 12/30/15 10:00 08/31/16 11:46 Bacid - PO 1 tab DAILY KWAKU Administration Lisinopril 40 mg 12/30/15 10:00 08/31/16 11:46 Prinivil GT 40 mg DAILY KWAKU Administration Metoprolol Tartrate 150 mg 12/29/15 22:00 08/31/16 11:46 Lopressor - GT 150 mg BID KWAKU Administration Metoprolol Tartrate 5 mg 12/29/15 10:43 Lopressor Injection - IVPB Q6H PRN HYPERTENSION Multivitamins 5 ml 12/30/15 10:00 08/30/16 15:41 Thera-Plus - GT 5 ml DAILY KWAKU Administration Ranitidine HCl 150 mg 08/27/16 12:15 08/31/16 11:47 Zantac Oral Solution - PO 150 mg BID KWAKU Administration Scopolamine HBr 1 patch 05/20/16 15:45 08/30/16 15:13 Transderm-Scop - TD 1 patch Q72H KWAKU Administration Simethicone 40 mg 08/25/16 10:00 08/31/16 11:46 Mylicon Liquid - PEG 40 mg DAILY KWAKU Administration ASSESSMENT/PLAN: Patient is a 75 year old male with a past medical history of IDDM, HTN and inguinal hernia. He presented to the emergency room on 06/27/2015 with a diverticular bleed s/p right hemicolectomy. His hospitalization was further complicated with a CVA with anoxic brain injury. He is s/p trach. . GI: Abdominal Pain: Simethicone added scheduled in a.m. and PRN for abdominal discomfort which seems to be working. He has a Peg tube in place which he gets feeds of Glucerna with water flushes. Aspiration Precautions - chronic HOB elevated at all times due to high aspiration risk Cardiovascular: Hypertension - chronic Controlled on Lisinopril, Norvasc and Lopressor Neurology: Anoxic brain injury s/p brainstem CVAs - chronic Mental status at baseline - non verbal Pulmonary: Respiratory Failure - chronic On continuous oxygen (room air), tolerating it well. Has respiratory failure secondary to anoxic brain injury. He is on duonebs PRN, Trach collar capped and was to scheduled to be changed yesterday. Will follow up with respiratory. Endocrine: Diabetes - controlled Continue Levemir anc BGM ac/hs F.E.N. NPO Glucerna 70cc/hr with water flushes Prostat for treatment of pressure ulcers DVT Prophylaxis: SCDs - both legs No AC: contraindicated secondary to GI bleed He is bed bound Code Status: DNR Disposition: requires continued inpatient care. Visit type - Emergency Visit Emergency Visit: No - New Patient This patient is new to me today: No - Critical Care Critical Care patient: No - Discharge Referral Referred to [facility] Med P.C.: No
[2016-08-31] MEDS: MULTIVITAMINS THERAPEUTIC GT SCH (15:16)
[2016-08-31] MEDS: INSULIN DETEMIR 100 UNITS/ML MDV SQ SCH ×2 (22:21→22:42)
[2016-09-01] MEDS: INSULIN SLIDING SCALE (NOVOLOG) 1 VIAL SQ SCH ×4 (06:20→22:26)
[2016-09-01] MEDS: LACTOBACILLUS ACIDOPHILUS 1 EACH TAB (FP) PO SCH (11:09)
[2016-09-01] MEDS: LISINOPRIL 20 MG TABLET (FP) GT SCH (11:09)
[2016-09-01] MEDS: amLODIPine BESYLATE 10 MG TABLET (FP) GT SCH (11:09)
[2016-09-01] MEDS: RANITIDINE HCL 150 MG/10 ML UNIT-DOSE CUP PO SCH ×2 (11:10→22:26)
[2016-09-01] MEDS: AMINO ACIDS/PROTEIN HYDROLYS SUGAR-FREE 30 ML PACKET PO SCH (11:10)
[2016-09-01] MEDS: SIMETHICONE 40 MG/0.6 ML BOTTLE PEG SCH (11:10)
[2016-09-01] MEDS: MULTIVIT-MINERALS 236 ML ML GT SCH (11:11)
[2016-09-01] MEDS: BACITRACIN 15 GM TUBE TOPICAL OINTMENT TP SCH (11:11)
[2016-09-01] MEDS: BACITRACIN/POLYMYXIN B SULFATE 15 GM TUBE TP SCH ×2 (11:12→22:26)
[2016-09-01] MEDS: METOPROLOL TARTRATE 50 MG TABLET (FP) GT SCH ×2 (11:14→22:26)
--- NOTE | 2016-09-01 15:16 | PN ---
Physical Exam: SUBJECTIVE: Patient seen and examined OBJECTIVE: Vital Signs Period Temp Pulse Resp BP Sys/Santiago Pulse Ox Last 24 Hr 97.4 F-100.0 F 76-84 20-20 139-154/82-96 99 GENERAL: The patient is awake, alert, and fully oriented, in no acute distress. HEAD: Normal with no signs of trauma. EYES: PERRL, extraocular movements intact, sclera anicteric, conjunctiva clear. No ptosis. ENT: Ears normal, nares patent, oropharynx clear without exudates, moist mucous membranes. NECK: Trachea midline, full range of motion, supple. LUNGS: Breath sounds equal, clear to auscultation bilaterally, no wheezes, no crackles, no accessory muscle use. HEART: Regular rate and rhythm, S1, S2 without murmur, rub or gallop. ABDOMEN: Soft, nontender, nondistended, normoactive bowel sounds, no guarding, no rebound, no hepatosplenomegaly, no masses. EXTREMITIES: 2+ pulses, warm, well-perfused, no edema. NEUROLOGICAL: Cranial nerves II through XII grossly intact. Normal speech, gait not observed. PSYCH: Normal mood, normal affect. SKIN: Warm, dry, normal turgor, no rashes or lesions noted Laboratory Results - last 24 hr 08/31/16 08/31/16 09/01/16 17:30 21:31 06:01 POC Glucometer 145 149 172 09/01/16 14:23 POC Glucometer 159 Active Medications Generic Name Dose Route Start Last Admin Trade Name Freq PRN Reason Stop Dose Admin Acetaminophen 650 mg 05/26/16 14:23 06/01/16 01:47 Tylenol Oral Solution - GT 650 mg Q4H PRN Administration FEVER Amino Acids 30 ml 06/28/16 10:00 09/01/16 11:10 Prostat Sugar-Free Packet - PO 30 ml DAILY KWAKU Administration Amlodipine Besylate 10 mg 12/30/15 10:00 09/01/16 11:09 Norvasc - GT 10 mg DAILY KWAKU Administration Bacitracin 1 applic 08/09/16 16:15 09/01/16 11:11 Bacitracin - TP 1 applic DAILY KWAKU Administration Bacitracin/Polymyxin B Sulfate 1 applic 07/25/16 22:00 09/01/16 11:12 Polysporin Ointment - TP 1 applic BID KWAKU Administration Guaifenesin 10 ml 12/29/15 10:43 08/02/16 10:38 Robitussin Dm - PO 10 ml Q6H PRN Administration COUGH Insulin Aspart 1 vial 08/28/16 22:00 09/01/16 06:20 Novolog Vial Sliding Scale - SQ 2 units ACHS KWAKU Administration Protocol Insulin Detemir 14 units 05/05/16 22:00 08/31/16 22:42 Levemir Vial SQ 14 units HS KWAKU Administration Lactobacillus Acidophilus 1 tab 12/30/15 10:00 09/01/16 11:09 Bacid - PO 1 tab DAILY KWAKU Administration Lisinopril 40 mg 12/30/15 10:00 09/01/16 11:09 Prinivil GT 40 mg DAILY KWAKU Administration Metoprolol Tartrate 150 mg 12/29/15 22:00 09/01/16 11:14 Lopressor - GT 150 mg BID KWAKU Administration Metoprolol Tartrate 5 mg 12/29/15 10:43 Lopressor Injection - IVPB Q6H PRN HYPERTENSION Ranitidine HCl 150 mg 08/27/16 12:15 09/01/16 11:10 Zantac Oral Solution - PO 150 mg BID KWAKU Administration Scopolamine HBr 1 patch 05/20/16 15:45 08/30/16 15:13 Transderm-Scop - TD 1 patch Q72H KWAKU Administration Simethicone 40 mg 08/25/16 10:00 09/01/16 11:10 Mylicon Liquid - PEG 40 mg DAILY KWAKU Administration ASSESSMENT/PLAN: Patient is a 75 year old male with a past medical history of IDDM, HTN and inguinal hernia. He presented to the emergency room on 06/27/2015 with a diverticular bleed s/p right hemicolectomy. His hospitalization was further complicated with a CVA with anoxic brain injury. He is s/p trach. . GI: Abdominal Pain - resolved Simethicone added scheduled in a.m. and PRN for abdominal discomfort which seems to be working Aspiration Precautions. HOB elevated at all times due to high aspiration risk Cardiovascular: Hypertension - chronic Controlled on Lisinopril, Norvasc and Lopressor Neurology: Anoxic brain injury s/p brainstem CVAs - chronic Mental status at baseline - non verbal Pulmonary: Respiratory Failure - chronic On continuous oxygen (room air), tolerating it well. Has respiratory failure secondary to anoxic brain injury. He is on duonebs PRN, Trach collar capped and was to scheduled to be changed yesterday, but has not yet been changed. Spoke to primary RN who will recall consult to Dr. Melo. Will continue to monitor. Endocrine: Diabetes - controlled Continue Levemir BGM ac/hs F.E.N. NPO Glucerna 70cc/hr with water flushes Prostat for treatment of pressure ulcers Prophylaxis: DVT: SCDs - both legs. No AC: contraindicated secondary to GI bleed Bowel Regimen: Ranitidine BID He is bed bound and a total care Code Status: DNR Disposition: requires continued inpatient care. Visit type - Emergency Visit Emergency Visit: No - New Patient This patient is new to me today: No - Critical Care Critical Care patient: No - Discharge Referral Referred to [facility] Med P.C.: No
[2016-09-01] MEDS: INSULIN DETEMIR 100 UNITS/ML MDV SQ SCH (22:26)
[2016-09-02] MEDS: INSULIN SLIDING SCALE (NOVOLOG) 1 VIAL SQ SCH ×4 (06:19→21:22)
[2016-09-02] MEDS: AMINO ACIDS/PROTEIN HYDROLYS SUGAR-FREE 30 ML PACKET PO SCH (09:16)
[2016-09-02] MEDS: amLODIPine BESYLATE 10 MG TABLET (FP) GT SCH (09:16)
[2016-09-02] MEDS: LACTOBACILLUS ACIDOPHILUS 1 EACH TAB (FP) PO SCH (09:16)
[2016-09-02] MEDS: RANITIDINE HCL 150 MG/10 ML UNIT-DOSE CUP PO SCH ×2 (09:16→21:22)
[2016-09-02] MEDS: LISINOPRIL 20 MG TABLET (FP) GT SCH (09:16)
[2016-09-02] MEDS: METOPROLOL TARTRATE 50 MG TABLET (FP) GT SCH ×2 (09:17→21:21)
[2016-09-02] MEDS: BACITRACIN/POLYMYXIN B SULFATE 15 GM TUBE TP SCH ×2 (09:17→21:22)
[2016-09-02] MEDS: BACITRACIN 15 GM TUBE TOPICAL OINTMENT TP SCH (09:17)
[2016-09-02] MEDS: SIMETHICONE 40 MG/0.6 ML BOTTLE PEG SCH (09:22)
[2016-09-02] MEDS: MULTIVIT-MINERALS 236 ML ML GT SCH (09:22)
--- NOTE | 2016-09-02 14:02 | PN ---
Physical Exam: SUBJECTIVE: Patient seen and examined. He was asleep, appears comfortable. Receiving tube feeds. OBJECTIVE: Vital Signs Period Temp Pulse Resp BP Sys/Santiago Pulse Ox Last 24 Hr 97.2 F-98.5 F 76-91 20-20 139-141/86-88 98 GENERAL: appears comfortable HEAD: Normal with no signs of trauma. LUNGS: Breath sounds diminished but clear anteriorly HEART: Regular rate and rhythm, ABDOMEN: peg tube LUQ NEUROLOGICAL: at baseline PSYCH: at baseline Laboratory Results - last 24 hr 09/01/16 09/01/16 09/01/16 14:23 17:25 22:25 POC Glucometer 159 160 168 09/02/16 06:18 POC Glucometer 170 Active Medications Generic Name Dose Route Start Last Admin Trade Name Freq PRN Reason Stop Dose Admin Acetaminophen 650 mg 05/26/16 14:23 06/01/16 01:47 Tylenol Oral Solution - GT 650 mg Q4H PRN Administration FEVER Amino Acids 30 ml 06/28/16 10:00 09/02/16 09:16 Prostat Sugar-Free Packet - PO 30 ml DAILY KWAKU Administration Amlodipine Besylate 10 mg 12/30/15 10:00 09/02/16 09:16 Norvasc - GT 10 mg DAILY KWAKU Administration Bacitracin 1 applic 08/09/16 16:15 09/02/16 09:17 Bacitracin - TP 1 applic DAILY KWAKU Administration Bacitracin/Polymyxin B Sulfate 1 applic 07/25/16 22:00 09/02/16 09:17 Polysporin Ointment - TP Not Given BID KWAKU Guaifenesin 10 ml 12/29/15 10:43 08/02/16 10:38 Robitussin Dm - PO 10 ml Q6H PRN Administration COUGH Insulin Aspart 1 vial 08/28/16 22:00 09/02/16 06:19 Novolog Vial Sliding Scale - SQ 2 units ACHS KWAKU Administration Protocol Insulin Detemir 14 units 05/05/16 22:00 09/01/16 22:26 Levemir Vial SQ 14 units HS KWAKU Administration Lactobacillus Acidophilus 1 tab 12/30/15 10:00 09/02/16 09:16 Bacid - PO 1 tab DAILY KWAKU Administration Lisinopril 40 mg 12/30/15 10:00 09/02/16 09:16 Prinivil GT 40 mg DAILY KWAKU Administration Metoprolol Tartrate 150 mg 12/29/15 22:00 09/02/16 09:17 Lopressor - GT 150 mg BID KWAKU Administration Metoprolol Tartrate 5 mg 12/29/15 10:43 Lopressor Injection - IVPB Q6H PRN HYPERTENSION Ranitidine HCl 150 mg 08/27/16 12:15 09/02/16 09:16 Zantac Oral Solution - PO 150 mg BID KWAKU Administration Scopolamine HBr 1 patch 05/20/16 15:45 08/30/16 15:13 Transderm-Scop - TD 1 patch Q72H KWAKU Administration Simethicone 40 mg 08/25/16 10:00 09/02/16 09:22 Mylicon Liquid - PEG 40 mg DAILY KWAKU Administration ASSESSMENT/PLAN: Patient is a 75 year old male with a past medical history of IDDM, HTN and inguinal hernia. He presented to the emergency room on 06/27/2015 with a diverticular bleed s/p right hemicolectomy. His hospitalization was further complicated with a CVA with anoxic brain injury. He is s/p trach. 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 - Has respiratory failure secondary to anoxic brain injury. - He is on duonebs PRN, - Trach collar capped and was to scheduled to be changed on 08/30, but has not yet been changed. - Reconsult for trach change entered Endocrine: Diabetes - controlled Continue Levemir BGM ac/hs F.E.N. NPO Glucerna 70cc/hr with water flushes Prostat for treatment of pressure ulcers Prophylaxis: DVT: SCDs - both legs. No AC: contraindicated secondary to GI bleed GI Regimen: Ranitidine BID Bowel regimen: as needed, soft stools He is bed bound and a total care Code Status: DNR Disposition: requires continued inpatient care. Visit type - Emergency Visit Emergency Visit: No - New Patient This patient is new to me today: No - Critical Care Critical Care patient: No - Discharge Referral Referred to [facility] Med P.C.: No
[2016-09-02] MEDS: SCOPOLAMINE HYDROBROMIDE 1 PATCH PATCH.TD72 TD SCH (16:26)
[2016-09-02] MEDS: INSULIN DETEMIR 100 UNITS/ML MDV SQ SCH (21:21)
[2016-09-02] MEDS: ACETAMINOPHEN 650 MG/20.3 ML ORAL SOLUTION (CUPS) GT PRN (21:22)
[2016-09-03] MEDS: INSULIN SLIDING SCALE (NOVOLOG) 1 VIAL SQ SCH ×4 (06:35→22:23)
[2016-09-03] MEDS: RANITIDINE HCL 150 MG/10 ML UNIT-DOSE CUP PO SCH ×2 (10:18→22:24)
[2016-09-03] MEDS: amLODIPine BESYLATE 10 MG TABLET (FP) GT SCH (10:19)
[2016-09-03] MEDS: LISINOPRIL 20 MG TABLET (FP) GT SCH (10:19)
[2016-09-03] MEDS: MULTIVIT-MINERALS 236 ML ML GT SCH (10:19)
[2016-09-03] MEDS: LACTOBACILLUS ACIDOPHILUS 1 EACH TAB (FP) PO SCH (10:19)
[2016-09-03] MEDS: METOPROLOL TARTRATE 50 MG TABLET (FP) GT SCH ×2 (10:19→22:23)
[2016-09-03] MEDS: SIMETHICONE 40 MG/0.6 ML BOTTLE PEG SCH (10:20)
[2016-09-03] MEDS: BACITRACIN/POLYMYXIN B SULFATE 15 GM TUBE TP SCH ×2 (10:20→22:27)
[2016-09-03] MEDS: BACITRACIN 15 GM TUBE TOPICAL OINTMENT TP SCH (10:30)
[2016-09-03] MEDS: AMINO ACIDS/PROTEIN HYDROLYS SUGAR-FREE 30 ML PACKET PO SCH (12:40)
--- NOTE | 2016-09-03 16:51 | PN ---
Physical Exam: SUBJECTIVE: Patient seen and examined. Appears comfortable at rest, no overnight events. OBJECTIVE: GENERAL: appears comfortable HEAD: Normal with no signs of trauma. LUNGS: Breath sounds diminished but clear anteriorly HEART: Regular rate and rhythm, ABDOMEN: peg tube LUQ NEUROLOGICAL: at baseline PSYCH: at baseline Vital Signs Period Temp Pulse Resp BP Sys/Santiago Pulse Ox Last 24 Hr 98.6 F-100.5 F 76-98 18-20 140-153/80-104 96-98 Laboratory Results - last 24 hr 09/02/16 09/03/16 09/03/16 21:12 05:48 11:38 POC Glucometer 137 169 194 Active Medications Generic Name Dose Route Start Last Admin Trade Name Freq PRN Reason Stop Dose Admin Acetaminophen 650 mg 05/26/16 14:23 09/02/16 21:22 Tylenol Oral Solution - GT 650 mg Q4H PRN Administration FEVER Amino Acids 30 ml 06/28/16 10:00 09/03/16 12:40 Prostat Sugar-Free Packet - PO Not Given DAILY KWAKU Amlodipine Besylate 10 mg 12/30/15 10:00 09/03/16 10:19 Norvasc - GT 10 mg DAILY KWAKU Administration Bacitracin 1 applic 08/09/16 16:15 09/03/16 10:30 Bacitracin - TP 1 applic DAILY KWAKU Administration Bacitracin/Polymyxin B Sulfate 1 applic 07/25/16 22:00 09/03/16 10:20 Polysporin Ointment - TP 1 applic BID KWAKU Administration Guaifenesin 10 ml 12/29/15 10:43 08/02/16 10:38 Robitussin Dm - PO 10 ml Q6H PRN Administration COUGH Insulin Aspart 1 vial 08/28/16 22:00 09/03/16 12:37 Novolog Vial Sliding Scale - SQ 2 units ACHS KWAKU Administration Protocol Insulin Detemir 14 units 05/05/16 22:00 09/02/16 21:21 Levemir Vial SQ 14 units HS KWAKU Administration Lactobacillus Acidophilus 1 tab 12/30/15 10:00 09/03/16 10:19 Bacid - PO 1 tab DAILY KWAKU Administration Lisinopril 40 mg 12/30/15 10:00 09/03/16 10:19 Prinivil GT 40 mg DAILY KWAKU Administration Metoprolol Tartrate 150 mg 12/29/15 22:00 09/03/16 10:19 Lopressor - GT 150 mg BID KWAKU Administration Metoprolol Tartrate 5 mg 12/29/15 10:43 Lopressor Injection - IVPB Q6H PRN HYPERTENSION Ranitidine HCl 150 mg 08/27/16 12:15 09/03/16 10:18 Zantac Oral Solution - PO 150 mg BID KWAKU Administration Scopolamine HBr 1 patch 05/20/16 15:45 09/02/16 16:26 Transderm-Scop - TD 1 patch Q72H KWAKU Administration Simethicone 40 mg 08/25/16 10:00 09/03/16 10:20 Mylicon Liquid - PEG 40 mg DAILY KWAKU Administration ASSESSMENT/PLAN: Patient is a 75 year old male with a past medical history of IDDM, HTN and inguinal hernia. He presented to the emergency room on 06/27/2015 with a diverticular bleed s/p right hemicolectomy. His hospitalization was further complicated with a CVA with anoxic brain injury. He is s/p trach. 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 - Has respiratory failure secondary to anoxic brain injury. - He is on duonebs PRN, - Trach collar capped - next trach collar to be changed on 09/04/2016 Endocrine: Diabetes - controlled Continue Levemir BGM ac/hs F.E.N. NPO Glucerna 70cc/hr with water flushes Prostat for treatment of pressure ulcers Prophylaxis: DVT: SCDs - both legs. No AC: contraindicated secondary to GI bleed GI Regimen: Ranitidine BID Bowel regimen: as needed, soft stools He is bed bound and a total care Code Status: DNR Disposition: requires continued inpatient care. Visit type - Emergency Visit Emergency Visit: Yes ED Registration Date: 06/27/15 Care time: The patient presented to the Emergency Department on the above date and was hospitalized for further evaluation of their emergent condition. - New Patient This patient is new to me today: No - Critical Care Critical Care patient: No - Discharge Referral Referred to [facility] Med P.C.: No
[2016-09-03] MEDS: INSULIN DETEMIR 100 UNITS/ML MDV SQ SCH (22:23)
[2016-09-04] MEDS: INSULIN SLIDING SCALE (NOVOLOG) 1 VIAL SQ SCH ×4 (06:14→23:45)
[2016-09-04 07:47] LABS: BASOPHIL 0.9 % (0-2.0); EOSINOPHIL 5.3 % (0-4.5); MCH 29.4 pg (25.7-33.7); MCHC 33.8 g/dl (32.0-35.9); MEAN CELL VOLUME 86.9 fl (80-96); MEAN PLT VOLUME 10.2 fl (7.5-11.1); NEUTROPHILS 58.1 % (42.8-82.8); PLATELET COUNT 131 K/MM3 (134-434); RDW 14.7 % (11.9-15.9); WHITE BLOOD COUNT 7.9 K/mm3 (4.0-10.0)
[2016-09-04 08:19] LABS: ALBUMIN 3.4 g/dl (3.4-5.0); ANION GAP 7 (8-16); BILIRUBIN,TOTAL 0.2 mg/dL (0.2-1.0); CALCIUM 9.5 mg/dL (8.5-10.1); CO2 33 mmol/L (21-32); GLUCOSE,RANDOM 150 mg/dL (74-106); SGOT/AST 37 U/L (15-37); SGPT/ALT 79 U/L (12-78); TOT PROT 8.3 g/dl (6.4-8.2)
[2016-09-04 08:20] LABS: ALK PHOS 131 U/L (45-117)
[2016-09-04] MEDS: METOPROLOL TARTRATE 50 MG TABLET (FP) GT SCH ×2 (09:48→23:45)
[2016-09-04] MEDS: amLODIPine BESYLATE 10 MG TABLET (FP) GT SCH (09:48)
[2016-09-04] MEDS: LISINOPRIL 20 MG TABLET (FP) GT SCH (09:48)
[2016-09-04] MEDS: RANITIDINE HCL 150 MG/10 ML UNIT-DOSE CUP PO SCH ×2 (09:49→23:45)
[2016-09-04] MEDS: LACTOBACILLUS ACIDOPHILUS 1 EACH TAB (FP) PO SCH (09:49)
[2016-09-04] MEDS: AMINO ACIDS/PROTEIN HYDROLYS SUGAR-FREE 30 ML PACKET PO SCH (09:49)
[2016-09-04] MEDS: SIMETHICONE 40 MG/0.6 ML BOTTLE PEG SCH (09:50)
[2016-09-04] MEDS: MULTIVIT-MINERALS 236 ML ML GT SCH (09:51)
[2016-09-04] MEDS: BACITRACIN 15 GM TUBE TOPICAL OINTMENT TP SCH (09:57)
[2016-09-04] MEDS: BACITRACIN/POLYMYXIN B SULFATE 15 GM TUBE TP SCH (10:35)
--- NOTE | 2016-09-04 13:26 | PN ---
Physical Exam: SUBJECTIVE: Patient seen and examined. Pt is non verbal, appears at his baseline. No events overnight. OBJECTIVE: GENERAL: appears comfortable HEAD: Normal with no signs of trauma. LUNGS: Breath sounds diminished but clear anteriorly HEART: Regular rate and rhythm, ABDOMEN: peg tube LUQ NEUROLOGICAL: at baseline PSYCH: at baseline Vital Signs Period Temp Pulse Resp BP Sys/Santiago Pulse Ox Last 24 Hr 97.7 F-99.3 F 72-101 20-22 126-147/82-86 98 Laboratory Results - last 24 hr 09/03/16 09/03/16 09/04/16 17:13 22:21 05:45 WBC 7.9 RBC 4.09 Hgb 12.0 Hct 35.6 MCV 86.9 MCHC 33.8 RDW 14.7 Plt Count 131 L D MPV 10.2 Neutrophils % 58.1 Lymphocytes % 29.9 Monocytes % 5.8 Eosinophils % 5.3 H Basophils % 0.9 Sodium Potassium Chloride Carbon Dioxide Anion Gap BUN Creatinine Creat Clearance w eGFR POC Glucometer 179 179 Random Glucose Calcium Total Bilirubin AST ALT Alkaline Phosphatase Total Protein Albumin 09/04/16 09/04/16 05:45 06:11 WBC RBC Hgb Hct MCV MCHC RDW Plt Count MPV Neutrophils % Lymphocytes % Monocytes % Eosinophils % Basophils % Sodium 149 H Potassium 3.8 Chloride 109 H Carbon Dioxide 33 H D Anion Gap 7 L BUN 26 H Creatinine 1.0 Creat Clearance w eGFR > 60 POC Glucometer 160 Random Glucose 150 H Calcium 9.5 Total Bilirubin 0.2 D AST 37 D ALT 79 H D Alkaline Phosphatase 131 H Total Protein 8.3 H Albumin 3.4 Active Medications Generic Name Dose Route Start Last Admin Trade Name Ginette PRN Reason Stop Dose Admin Acetaminophen 650 mg 05/26/16 14:23 09/02/16 21:22 Tylenol Oral Solution - GT 650 mg Q4H PRN Administration FEVER Amino Acids 30 ml 06/28/16 10:00 09/04/16 09:49 Prostat Sugar-Free Packet - PO 30 ml DAILY KWAKU Administration Amlodipine Besylate 10 mg 12/30/15 10:00 09/04/16 09:48 Norvasc - GT 10 mg DAILY KWAKU Administration Bacitracin 1 applic 08/09/16 16:15 09/04/16 09:57 Bacitracin - TP 1 applic DAILY KWAKU Administration Guaifenesin 10 ml 12/29/15 10:43 08/02/16 10:38 Robitussin Dm - PO 10 ml Q6H PRN Administration COUGH Insulin Aspart 1 vial 08/28/16 22:00 09/04/16 06:14 Novolog Vial Sliding Scale - SQ 2 units ACHS KWAKU Administration Protocol Insulin Detemir 14 units 05/05/16 22:00 09/03/16 22:23 Levemir Vial SQ 14 units HS KWAKU Administration Lactobacillus Acidophilus 1 tab 12/30/15 10:00 09/04/16 09:49 Bacid - PO 1 tab DAILY KWAKU Administration Lisinopril 40 mg 12/30/15 10:00 09/04/16 09:48 Prinivil GT 40 mg DAILY KWAKU Administration Metoprolol Tartrate 150 mg 12/29/15 22:00 09/04/16 09:48 Lopressor - GT 150 mg BID KWAKU Administration Metoprolol Tartrate 5 mg 12/29/15 10:43 Lopressor Injection - IVPB Q6H PRN HYPERTENSION Ranitidine HCl 150 mg 08/27/16 12:15 09/04/16 09:49 Zantac Oral Solution - PO 150 mg BID KWAKU Administration Scopolamine HBr 1 patch 05/20/16 15:45 09/02/16 16:26 Transderm-Scop - TD 1 patch Q72H KWAKU Administration Simethicone 40 mg 08/25/16 10:00 09/04/16 09:50 Mylicon Liquid - PEG 40 mg DAILY KWAKU Administration ASSESSMENT/PLAN: Patient is a 75 year old male with a past medical history of IDDM, HTN and inguinal hernia. He presented to the emergency room on 06/27/2015 with a diverticular bleed s/p right hemicolectomy. His hospitalization was further complicated with a CVA with anoxic brain injury. He is s/p trach. 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 - Has respiratory failure secondary to anoxic brain injury. - He is on duonebs PRN, - Trach collar capped - next trach collar to be changed on 09/04/2016 Fluid/Electrolytes: Hypernatremia - water flushes on tube feeds increased to 60cc/hr - recheck BMP on Thursday 09/06 Endocrine: Diabetes - controlled Continue Levemir BGM ac/hs F.E.N. NPO Glucerna 70cc/hr with water flushes - increased water flushes to 60cc/hr secondary to hyperNA Prostat for treatment of pressure ulcers Prophylaxis: DVT: SCDs - both legs. No AC: contraindicated secondary to GI bleed GI Regimen: Ranitidine BID Bowel regimen: as needed, soft stools He is bed bound and a total care Code Status: DNR Disposition: requires continued inpatient care. Visit type - Emergency Visit Emergency Visit: Yes ED Registration Date: 06/27/15 Care time: The patient presented to the Emergency Department on the above date and was hospitalized for further evaluation of their emergent condition. - New Patient This patient is new to me today: No - Critical Care Critical Care patient: No - Discharge Referral Referred to [facility] Med P.C.: No
[2016-09-04] MEDS: INSULIN DETEMIR 100 UNITS/ML MDV SQ SCH (23:44)
[2016-09-05] MEDS: INSULIN SLIDING SCALE (NOVOLOG) 1 VIAL SQ SCH ×4 (06:58→21:58)
[2016-09-05] MEDS: LACTOBACILLUS ACIDOPHILUS 1 EACH TAB (FP) PO SCH (11:11)
[2016-09-05] MEDS: AMINO ACIDS/PROTEIN HYDROLYS SUGAR-FREE 30 ML PACKET PO SCH (11:12)
[2016-09-05] MEDS: METOPROLOL TARTRATE 50 MG TABLET (FP) GT SCH ×2 (11:12→21:59)
[2016-09-05] MEDS: LISINOPRIL 20 MG TABLET (FP) GT SCH (11:12)
[2016-09-05] MEDS: amLODIPine BESYLATE 10 MG TABLET (FP) GT SCH (11:12)
[2016-09-05] MEDS: RANITIDINE HCL 150 MG/10 ML UNIT-DOSE CUP PO SCH ×2 (11:12→21:59)
[2016-09-05] MEDS: SIMETHICONE 40 MG/0.6 ML BOTTLE PEG SCH (11:13)
[2016-09-05] MEDS: MULTIVIT-MINERALS 236 ML ML GT SCH (11:14)
--- NOTE | 2016-09-05 12:13 | PN ---
Physical Exam: SUBJECTIVE: Patient seen and examined. He appears comfortable at rest, tolerating feeds. Opens his eyes intermittently. Non verbal at baseline. OBJECTIVE: Vital Signs Period Temp Pulse Resp BP Sys/Santiago Pulse Ox Last 24 Hr 97.8 F-100 F 60-84 19-20 132-144/88-91 96-99 GENERAL: appears comfortable, in no acute distress. Tolerating feeds. HEAD: Normal with no signs of trauma. LUNGS: Scattered rhonchi auscultated anteriorly HEART: Regular rate and rhythm, heart rate in the 90s ABDOMEN: peg tube LUQ - on Jevity feeds with water flushes NEUROLOGICAL: at baseline, opens eyes intermittently. Appears at baseline. Laboratory Results - last 24 hr 09/04/16 09/04/16 09/04/16 13:54 17:04 23:27 POC Glucometer 187 101 145 09/05/16 06:57 POC Glucometer 179 Active Medications Generic Name Dose Route Start Last Admin Trade Name Freq PRN Reason Stop Dose Admin Acetaminophen 650 mg 05/26/16 14:23 09/02/16 21:22 Tylenol Oral Solution - GT 650 mg Q4H PRN Administration FEVER Amino Acids 30 ml 06/28/16 10:00 09/05/16 11:12 Prostat Sugar-Free Packet - PO 30 ml DAILY KWAKU Administration Amlodipine Besylate 10 mg 12/30/15 10:00 09/05/16 11:12 Norvasc - GT 10 mg DAILY KWAKU Administration Bacitracin 1 applic 08/09/16 16:15 09/04/16 09:57 Bacitracin - TP 1 applic DAILY KWAKU Administration Guaifenesin 10 ml 12/29/15 10:43 08/02/16 10:38 Robitussin Dm - PO 10 ml Q6H PRN Administration COUGH Insulin Aspart 1 vial 08/28/16 22:00 09/05/16 06:58 Novolog Vial Sliding Scale - SQ 2 units ACHS KWAKU Administration Protocol Insulin Detemir 14 units 05/05/16 22:00 09/04/16 23:44 Levemir Vial SQ 14 units HS KWAKU Administration Lactobacillus Acidophilus 1 tab 12/30/15 10:00 09/05/16 11:11 Bacid - PO 1 tab DAILY KWAKU Administration Lisinopril 40 mg 12/30/15 10:00 09/05/16 11:12 Prinivil GT 40 mg DAILY KWAKU Administration Metoprolol Tartrate 150 mg 12/29/15 22:00 09/05/16 11:12 Lopressor - GT 150 mg BID KWAKU Administration Metoprolol Tartrate 5 mg 12/29/15 10:43 Lopressor Injection - IVPB Q6H PRN HYPERTENSION Ranitidine HCl 150 mg 08/27/16 12:15 09/05/16 11:12 Zantac Oral Solution - PO 150 mg BID KWAKU Administration Scopolamine HBr 1 patch 05/20/16 15:45 09/02/16 16:26 Transderm-Scop - TD 1 patch Q72H KWAKU Administration Simethicone 40 mg 08/25/16 10:00 09/05/16 11:13 Mylicon Liquid - PEG 40 mg DAILY KWAKU Administration ASSESSMENT/PLAN: Patient is a 75 year old male with a past medical history of IDDM, HTN and inguinal hernia. He presented to the emergency room on 06/27/2015 with a diverticular bleed s/p right hemicolectomy. His hospitalization was further complicated with a CVA with anoxic brain injury. He is s/p trach secondary to respiratory failure. 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 - Has respiratory failure secondary to anoxic brain injury. - He is on duonebs PRN, - Trach collar capped - next trach collar to be changed scheduled on 09/04/2016 - has not yet been changed ENT notified. Fluid/Electrolytes: Hypernatremia - water flushes on tube feeds increased to 60cc/hr - recheck BMP on Thursday 09/06 - monitor labs Endocrine: Diabetes - controlled Continue Levemir 14 units at hs capillary glucose ac/hs F.E.N. NPO Glucerna 70cc/hr with water flushes - increased water flushes to 60cc/hr secondary to hyperNA Prostat for treatment of pressure ulcers BMP check on 09/06 Prophylaxis: DVT: SCDs - both legs. No AC: contraindicated secondary to GI bleed GI Regimen: Ranitidine BID Bowel regimen: deferred, having soft stools He is bed bound and a total care Code Status: DNR Disposition: requires continued inpatient care. Visit type - Emergency Visit Emergency Visit: Yes ED Registration Date: 06/27/15 Care time: The patient presented to the Emergency Department on the above date and was hospitalized for further evaluation of their emergent condition. - New Patient This patient is new to me today: No - Critical Care Critical Care patient: No - Discharge Referral Referred to [facility] Med P.C.: No
[2016-09-05] MEDS: BACITRACIN 15 GM TUBE TOPICAL OINTMENT TP SCH (12:54)
[2016-09-05] MEDS: SCOPOLAMINE HYDROBROMIDE 1 PATCH PATCH.TD72 TD SCH (15:27)
[2016-09-05] MEDS: INSULIN DETEMIR 100 UNITS/ML MDV SQ SCH (21:58)
[2016-09-06] MEDS: INSULIN SLIDING SCALE (NOVOLOG) 1 VIAL SQ SCH ×4 (06:29→22:54)
[2016-09-06 08:44] LABS: CREATININE 0.9 mg/dL (0.7-1.3)
[2016-09-06] MEDS: LACTOBACILLUS ACIDOPHILUS 1 EACH TAB (FP) PO SCH (10:50)
[2016-09-06] MEDS: BACITRACIN 15 GM TUBE TOPICAL OINTMENT TP SCH (10:50)
[2016-09-06] MEDS: SIMETHICONE 40 MG/0.6 ML BOTTLE PEG SCH (10:51)
[2016-09-06] MEDS: amLODIPine BESYLATE 10 MG TABLET (FP) GT SCH (10:51)
[2016-09-06] MEDS: METOPROLOL TARTRATE 50 MG TABLET (FP) GT SCH ×2 (10:51→22:54)
[2016-09-06] MEDS: MULTIVIT-MINERALS 236 ML ML GT SCH (10:51)
[2016-09-06] MEDS: RANITIDINE HCL 150 MG/10 ML UNIT-DOSE CUP PO SCH ×2 (10:52→22:53)
[2016-09-06] MEDS: AMINO ACIDS/PROTEIN HYDROLYS SUGAR-FREE 30 ML PACKET PO SCH (10:52)
[2016-09-06] MEDS: LISINOPRIL 20 MG TABLET (FP) GT SCH (11:51)
--- NOTE | 2016-09-06 13:50 | PN ---
Progress Note (short form) - Note Progress Note: ENT pt has #[address] tube in place. It is capped continuously and he tolerates this well. No mechanical ventilation for many months. PE: NAD non-verbal (hx anoxic brain injury) tracheotomy tube secure, peristomal skin unremarkable tube is capped, pt is breathing comfortably by mouth/nose NO stridor or respiratory distress, no retractions or accessory muscle use Impression Stable trach status, pt does well with tube capped has not required mechanical ventilation for months Recommend: presently tube does not require a change. every 3 months may be considered note: pt did not have his initial tracheotomy tube changed for one year after his procedure. clinically pt does not require the tracheotomy tube for airway or ventilation. perhaps it is being kept for pulmonary toilet/suctioning? The need to keep his trachetomy tube in may be discussed between medical team and pulmonology. 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
[2016-09-06] MEDS: ACETAMINOPHEN 650 MG/20.3 ML ORAL SOLUTION (CUPS) GT PRN (22:53)
[2016-09-06] MEDS: INSULIN DETEMIR 100 UNITS/ML MDV SQ SCH (22:54)
[2016-09-07] MEDS: INSULIN SLIDING SCALE (NOVOLOG) 1 VIAL SQ SCH ×4 (07:18→23:56)
[2016-09-07] MEDS: LACTOBACILLUS ACIDOPHILUS 1 EACH TAB (FP) PO SCH (10:38)
[2016-09-07] MEDS: METOPROLOL TARTRATE 50 MG TABLET (FP) GT SCH (10:38)
[2016-09-07] MEDS: amLODIPine BESYLATE 10 MG TABLET (FP) GT SCH (10:38)
[2016-09-07] MEDS: BACITRACIN 15 GM TUBE TOPICAL OINTMENT TP SCH (10:39)
[2016-09-07] MEDS: MULTIVIT-MINERALS 236 ML ML GT SCH (10:39)
[2016-09-07] MEDS: SIMETHICONE 40 MG/0.6 ML BOTTLE PEG SCH (10:40)
[2016-09-07] MEDS: AMINO ACIDS/PROTEIN HYDROLYS SUGAR-FREE 30 ML PACKET PO SCH (10:41)
[2016-09-07] MEDS: LISINOPRIL 20 MG TABLET (FP) GT SCH (10:41)
[2016-09-07] MEDS: RANITIDINE HCL 150 MG/10 ML UNIT-DOSE CUP PO SCH (10:41)
--- NOTE | 2016-09-07 11:24 | PN ---
Progress Note (short form) - Note Progress Note: Subjective: The patient was seen and examined at the bedside, non-verbal. Tolerating room air well. Current Medications Generic Name Dose Route Start Last Admin Trade Name Freq PRN Reason Stop Dose Admin Acetaminophen 650 mg 05/26/16 14:23 09/06/16 22:53 Tylenol Oral Solution - GT 650 mg Q4H PRN Administration FEVER Amino Acids 30 ml 06/28/16 10:00 09/07/16 10:41 Prostat Sugar-Free Packet - PO 30 ml DAILY KWAKU Administration Amlodipine Besylate 10 mg 12/30/15 10:00 09/07/16 10:38 Norvasc - GT 10 mg DAILY KWAKU Administration Bacitracin 1 applic 08/09/16 16:15 09/07/16 10:39 Bacitracin - TP 1 applic DAILY KWAKU Administration Guaifenesin 10 ml 12/29/15 10:43 08/02/16 10:38 Robitussin Dm - PO 10 ml Q6H PRN Administration COUGH Insulin Aspart 1 vial 08/28/16 22:00 09/07/16 07:18 Novolog Vial Sliding Scale - SQ 2 units ACHS KWAKU Administration Protocol Insulin Detemir 14 units 05/05/16 22:00 09/06/16 22:54 Levemir Vial SQ 14 units HS KWAKU Administration Lactobacillus Acidophilus 1 tab 12/30/15 10:00 09/07/16 10:38 Bacid - PO 1 tab DAILY KWAKU Administration Lisinopril 40 mg 12/30/15 10:00 09/07/16 10:41 Prinivil GT 40 mg DAILY KWAKU Administration Metoprolol Tartrate 150 mg 12/29/15 22:00 09/07/16 10:38 Lopressor - GT 150 mg BID KWAKU Administration Metoprolol Tartrate 5 mg 12/29/15 10:43 Lopressor Injection - IVPB Q6H PRN HYPERTENSION Ranitidine HCl 150 mg 08/27/16 12:15 09/07/16 10:41 Zantac Oral Solution - PO 150 mg BID KWAKU Administration Scopolamine HBr 1 patch 05/20/16 15:45 09/05/16 15:27 Transderm-Scop - TD 1 patch Q72H KWAKU Administration Simethicone 40 mg 08/25/16 10:00 09/07/16 10:40 Mylicon Liquid - PEG 40 mg DAILY KWAKU Administration Objective: Vital Signs Period Temp Pulse Resp BP Sys/Santiago Pulse Ox Last 24 Hr 98.0 F-100.1 F 68-88 18-20 102-150/58-89 99 Physical Exam: General: No acute distress Neuro: Eye tracking to verbal stimulus Pulm: Tach collar capped on RA, CTA anteriorly CV: RRR, S1S2 Abd: Soft, non-distended. Normoactive bowel sounds. Peg tube c/d/i Ext: Warm, well-perfused. 2+ DP/PT bilaterally CBCD WBC 7.9 K/mm3 (4.0-10.0) 09/04/16 05:45 RBC 4.09 M/mm3 (4.00-5.60) 09/04/16 05:45 Hgb 12.0 GM/dL (11.7-16.9) 09/04/16 05:45 Hct 35.6 % (35.4-49) 09/04/16 05:45 MCV 86.9 fl (80-96) 09/04/16 05:45 MCHC 33.8 g/dl (32.0-35.9) 09/04/16 05:45 RDW 14.7 % (11.9-15.9) 09/04/16 05:45 Plt Count 131 K/MM3 (134-434) L D 09/04/16 05:45 MPV 10.2 fl (7.5-11.1) 09/04/16 05:45 CMP Sodium 147 mmol/L (136-145) H 09/06/16 05:50 Potassium 3.9 mmol/L (3.5-5.1) 09/06/16 05:50 Chloride 108 mmol/L (98-107) H 09/06/16 05:50 Carbon Dioxide 31 mmol/L (21-32) 09/06/16 05:50 Anion Gap 8 (8-16) 09/06/16 05:50 BUN 27 mg/dL (7-18) H 09/06/16 05:50 Creatinine 0.9 mg/dL (0.7-1.3) 09/06/16 05:50 Creat Clearance w eGFR > 60 (>60) 09/04/16 05:45 Random Glucose 165 mg/dL (74-106) H 09/06/16 05:50 Calcium 10.0 mg/dL (8.5-10.1) 09/06/16 05:50 Total Bilirubin 0.2 mg/dL (0.2-1.0) D 09/04/16 05:45 AST 37 U/L (15-37) D 09/04/16 05:45 ALT 79 U/L (12-78) H D 09/04/16 05:45 Alkaline Phosphatase 131 U/L (45-117) H 09/04/16 05:45 Total Protein 8.3 g/dl (6.4-8.2) H 09/04/16 05:45 Albumin 3.4 g/dl (3.4-5.0) 09/04/16 05:45 CARDIAC ENZYMES Creatine Kinase 62 IU/L (38-174) 06/28/15 09:35 Troponin I 0.07 ng/ml (0.03-0.5) D 07/09/15 05:00 Assessment: 75 year old male with PMHx of HTN, IDDM, inguinal hernia who presented to the ED with diverticular bleed s/p Righ hemicolectomy with 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 Plan: 1. Anoxic brain injury s/p brainstem CVAs - Mental status unchanged 2. Respiratory failure secondary to anoxic brain injury - Cont O2 via room air (silicone Portex): Trach changed q3 months per ENT - Reconsult pulmonary for evaluation of trach removal - Duonebs PRN 3. HTN - Continue lisinopril, amlodipine, lopressor 4. Multiple pressure ulcers - Turn and position q2h 5. IDDM - Continue Levemir at 14u sq qhs - ISS BGM ACHS 6. F/E/N: - 70 ml/hr Glucerna 1.5, 50 ml/hr water flushes - Prostat daily - Continue Zantac bid 7. Prophylaxis: - SCDs bilaterally - No chemical anticoagulation 2/2 spontaneous gluteal bleed and severe GI bleed - Functional quadriplegia CODE STATUS: DNR Visit type - Emergency Visit Emergency Visit: Yes ED Registration Date: 06/27/15 Care time: The patient presented to the Emergency Department on the above date and was hospitalized for further evaluation of their emergent condition. - New Patient This patient is new to me today: No - Critical Care Critical Care patient: No
--- NOTE | 2016-09-07 16:13 | PN ---
Progress Note (short form) - Note Progress Note: PULMONARY Called back to evaluate pt for possible decannulation. Has been off mechanical ventilation for months. Trach has been capped as well. Saturating well on room air. Last Vital Signs Temp Pulse Resp BP Pulse Ox 99.6 F 88 20 138/76 98 09/07/16 14:47 09/07/16 14:47 09/07/16 14:47 09/07/16 14:47 09/07/16 11:41 Gen: eyes open, breathing nonlabored, nonverbal Heart: RRR Lung: decreased breath sounds at the bases Abd: soft, nontender Ext: no edema CBC, BMP 09/04/16 05:45 09/06/16 05:50 Active Medications Acetaminophen (Tylenol Oral Solution -) 650 mg GT Q4H PRN PRN Reason: FEVER Last Admin: 09/06/16 22:53 Dose: 650 mg Amino Acids (Prostat Sugar-Free Packet -) 30 ml PO DAILY [facility] Last Admin: 09/07/16 10:41 Dose: 30 ml Amlodipine Besylate (Norvasc -) 10 mg GT DAILY [facility] Last Admin: 09/07/16 10:38 Dose: 10 mg Bacitracin (Bacitracin -) 1 applic TP DAILY [facility] Last Admin: 09/07/16 10:39 Dose: 1 applic Guaifenesin (Robitussin Dm -) 10 ml PO Q6H PRN PRN Reason: COUGH Last Admin: 08/02/16 10:38 Dose: 10 ml Insulin Aspart (Novolog Vial Sliding Scale -) 1 vial SQ ACHS [facility] PRN Reason: Protocol Last Admin: 09/07/16 12:15 Dose: 2 units Insulin Detemir (Levemir Vial) 16 units SQ HS [facility] Lactobacillus Acidophilus (Bacid -) 1 tab PO DAILY [facility] Last Admin: 09/07/16 10:38 Dose: 1 tab Lisinopril (Prinivil) 40 mg GT DAILY [facility] Last Admin: 09/07/16 10:41 Dose: 40 mg Metoprolol Tartrate (Lopressor -) 150 mg GT BID [facility] Last Admin: 09/07/16 10:38 Dose: 150 mg Metoprolol Tartrate (Lopressor Injection -) 5 mg IVPB Q6H PRN PRN Reason: HYPERTENSION Ranitidine HCl (Zantac Oral Solution -) 150 mg PO BID [facility] Last Admin: 09/07/16 10:41 Dose: 150 mg Scopolamine HBr (Transderm-Scop -) 1 patch TD Q72H [facility] Last Admin: 09/05/16 15:27 Dose: 1 patch Simethicone (Mylicon Liquid -) 40 mg PEG DAILY [facility] Last Admin: 09/07/16 10:40 Dose: 40 mg A/P GI Bleed s/p R hemicolectomy CVA Anoxic Brain Injury s/p Acute Respiratory Failure s/p Tracheostomy HTN DM CKD - no contraindications to decannulation - aspiration precautions - DVT prophylaxis
[2016-09-07] MEDS: INSULIN DETEMIR 100 UNITS/ML MDV SQ SCH (23:57)
[2016-09-08] MEDS: METOPROLOL TARTRATE 50 MG TABLET (FP) GT SCH ×3 (00:02→21:57)
[2016-09-08] MEDS: RANITIDINE HCL 150 MG/10 ML UNIT-DOSE CUP PO SCH ×3 (00:02→21:58)
[2016-09-08] MEDS: INSULIN SLIDING SCALE (NOVOLOG) 1 VIAL SQ SCH ×4 (06:55→21:58)
[2016-09-08] MEDS: LISINOPRIL 20 MG TABLET (FP) GT SCH (11:12)
[2016-09-08] MEDS: AMINO ACIDS/PROTEIN HYDROLYS SUGAR-FREE 30 ML PACKET PO SCH (11:12)
[2016-09-08] MEDS: LACTOBACILLUS ACIDOPHILUS 1 EACH TAB (FP) PO SCH (11:12)
[2016-09-08] MEDS: amLODIPine BESYLATE 10 MG TABLET (FP) GT SCH (11:12)
[2016-09-08] MEDS: BACITRACIN 15 GM TUBE TOPICAL OINTMENT TP SCH (11:13)
[2016-09-08] MEDS: SIMETHICONE 40 MG/0.6 ML BOTTLE PEG SCH (11:14)
[2016-09-08] MEDS: MULTIVIT-MINERALS 236 ML ML GT SCH (11:14)
--- NOTE | 2016-09-08 13:56 | PN ---
Progress Note (short form) - Note Progress Note: Subjective: The patient was seen and examined at the bedside, non-verbal. Tolerating room air well. Current Medications Generic Name Dose Route Start Last Admin Trade Name Freq PRN Reason Stop Dose Admin Acetaminophen 650 mg 05/26/16 14:23 09/06/16 22:53 Tylenol Oral Solution - GT 650 mg Q4H PRN Administration FEVER Amino Acids 30 ml 06/28/16 10:00 09/08/16 11:12 Prostat Sugar-Free Packet - PO 30 ml DAILY KWAKU Administration Amlodipine Besylate 10 mg 12/30/15 10:00 09/08/16 11:12 Norvasc - GT 10 mg DAILY KWAKU Administration Bacitracin 1 applic 08/09/16 16:15 09/08/16 11:13 Bacitracin - TP 1 applic DAILY KWAKU Administration Guaifenesin 10 ml 12/29/15 10:43 08/02/16 10:38 Robitussin Dm - PO 10 ml Q6H PRN Administration COUGH Insulin Aspart 1 vial 08/28/16 22:00 09/08/16 06:55 Novolog Vial Sliding Scale - SQ 4 units ACHS KWAKU Administration Protocol Insulin Detemir 16 units 09/07/16 22:00 09/07/16 23:57 Levemir Vial SQ 16 units HS KWAKU Administration Lactobacillus Acidophilus 1 tab 12/30/15 10:00 09/08/16 11:12 Bacid - PO 1 tab DAILY KWAKU Administration Lisinopril 40 mg 12/30/15 10:00 09/08/16 11:12 Prinivil GT 40 mg DAILY KWAKU Administration Metoprolol Tartrate 150 mg 12/29/15 22:00 09/08/16 11:12 Lopressor - GT 150 mg BID KWAKU Administration Metoprolol Tartrate 5 mg 12/29/15 10:43 Lopressor Injection - IVPB Q6H PRN HYPERTENSION Ranitidine HCl 150 mg 08/27/16 12:15 09/08/16 11:12 Zantac Oral Solution - PO 150 mg BID KWAKU Administration Scopolamine HBr 1 patch 05/20/16 15:45 09/05/16 15:27 Transderm-Scop - TD 1 patch Q72H KWAKU Administration Simethicone 40 mg 08/25/16 10:00 09/08/16 11:14 Mylicon Liquid - PEG 40 mg DAILY KWAKU Administration Objective: Vital Signs Period Temp Pulse Resp BP Sys/Santiago Pulse Ox Last 24 Hr 97.8 F-99.6 F 77-107 18-20 136-162/76-95 97-100 Physical Exam: General: No acute distress Neuro: Eye tracking to verbal stimulus Pulm: Tach collar capped on RA, CTA anteriorly CV: RRR, S1S2 Abd: Soft, non-distended. Normoactive bowel sounds. Peg tube c/d/i Ext: Warm, well-perfused. 2+ DP/PT bilaterally CBCD WBC 7.9 K/mm3 (4.0-10.0) 09/04/16 05:45 RBC 4.09 M/mm3 (4.00-5.60) 09/04/16 05:45 Hgb 12.0 GM/dL (11.7-16.9) 09/04/16 05:45 Hct 35.6 % (35.4-49) 09/04/16 05:45 MCV 86.9 fl (80-96) 09/04/16 05:45 MCHC 33.8 g/dl (32.0-35.9) 09/04/16 05:45 RDW 14.7 % (11.9-15.9) 09/04/16 05:45 Plt Count 131 K/MM3 (134-434) L D 09/04/16 05:45 MPV 10.2 fl (7.5-11.1) 09/04/16 05:45 CMP Sodium 147 mmol/L (136-145) H 09/06/16 05:50 Potassium 3.9 mmol/L (3.5-5.1) 09/06/16 05:50 Chloride 108 mmol/L (98-107) H 09/06/16 05:50 Carbon Dioxide 31 mmol/L (21-32) 09/06/16 05:50 Anion Gap 8 (8-16) 09/06/16 05:50 BUN 27 mg/dL (7-18) H 09/06/16 05:50 Creatinine 0.9 mg/dL (0.7-1.3) 09/06/16 05:50 Creat Clearance w eGFR > 60 (>60) 09/04/16 05:45 Random Glucose 165 mg/dL (74-106) H 09/06/16 05:50 Calcium 10.0 mg/dL (8.5-10.1) 09/06/16 05:50 Total Bilirubin 0.2 mg/dL (0.2-1.0) D 09/04/16 05:45 AST 37 U/L (15-37) D 09/04/16 05:45 ALT 79 U/L (12-78) H D 09/04/16 05:45 Alkaline Phosphatase 131 U/L (45-117) H 09/04/16 05:45 Total Protein 8.3 g/dl (6.4-8.2) H 09/04/16 05:45 Albumin 3.4 g/dl (3.4-5.0) 09/04/16 05:45 CARDIAC ENZYMES Creatine Kinase 62 IU/L (38-174) 06/28/15 09:35 Troponin I 0.07 ng/ml (0.03-0.5) D 07/09/15 05:00 Assessment: 75 year old male with PMHx of HTN, IDDM, inguinal hernia who presented to the ED with diverticular bleed s/p Righ hemicolectomy with 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 Plan: 1. Anoxic brain injury s/p brainstem CVAs - Mental status unchanged 2. Respiratory failure secondary to anoxic brain injury - Cont O2 via room air (silicone Portex): Trach changed q3 months per ENT - Per pulmonary, ok for trach removal - Duonebs PRN 3. HTN - Continue lisinopril, amlodipine, lopressor 4. Multiple pressure ulcers - Turn and position q2h 5. IDDM - Continue Levemir at 14u sq qhs - ISS BGM ACHS 6. F/E/N: - 70 ml/hr Glucerna 1.5, 50 ml/hr water flushes - Prostat daily - Continue Zantac bid 7. Prophylaxis: - SCDs bilaterally - No chemical anticoagulation 2/2 spontaneous gluteal bleed and severe GI bleed - Functional quadriplegia CODE STATUS: DNR Visit type - Emergency Visit Emergency Visit: Yes ED Registration Date: 06/27/15 Care time: The patient presented to the Emergency Department on the above date and was hospitalized for further evaluation of their emergent condition. - New Patient This patient is new to me today: No - Critical Care Critical Care patient: No
[2016-09-08] MEDS: SCOPOLAMINE HYDROBROMIDE 1 PATCH PATCH.TD72 TD SCH (17:46)
[2016-09-08] MEDS: INSULIN DETEMIR 100 UNITS/ML MDV SQ SCH (21:57)
[2016-09-09] MEDS: INSULIN SLIDING SCALE (NOVOLOG) 1 VIAL SQ SCH ×4 (06:03→23:25)
--- NOTE | 2016-09-09 10:07 | PN ---
Progress Note (short form) - Note Progress Note: Progress Note PULM/CCM Patient Name: CRUZ LEE Date of : 1940 Patient Status: Inpatient Attending Provider: Marcella Mcdonald No acute events overnight. Seen by ENT -> No CI for decannulation. Trached has been capped for almost 1 month. Tracheostomy removed at bedside without immediate complications. Very cough cough reflex. Stoma with well healed granulated tissue and clear tract. Intake & Output 09/06/16 09/07/16 09/08/16 09/09/16 23:59 23:59 23:59 23:59 Intake Total 2400 3120 1560 1650 Output Total 450 500 400 Balance 1950 2620 1160 1650 Weight 158 lb 4 oz Last Vital Signs Temp Pulse Resp BP Pulse Ox 98.7 F 74 18 153/90 96 09/09/16 06:48 09/09/16 06:48 09/09/16 06:48 09/09/16 06:48 09/08/16 21:00 Active Medications Acetaminophen (Tylenol Oral Solution -) 650 mg GT Q4H PRN PRN Reason: FEVER Last Admin: 09/06/16 22:53 Dose: 650 mg Amino Acids (Prostat Sugar-Free Packet -) 30 ml PO DAILY [facility] Last Admin: 09/08/16 11:12 Dose: 30 ml Amlodipine Besylate (Norvasc -) 10 mg GT DAILY KWAKU Last Admin: 09/08/16 11:12 Dose: 10 mg Bacitracin (Bacitracin -) 1 applic TP DAILY KWAKU Last Admin: 09/08/16 11:13 Dose: 1 applic Guaifenesin (Robitussin Dm -) 10 ml PO Q6H PRN PRN Reason: COUGH Last Admin: 08/02/16 10:38 Dose: 10 ml Insulin Aspart (Novolog Vial Sliding Scale -) 1 vial SQ ACHS KWAKU PRN Reason: Protocol Last Admin: 09/09/16 06:03 Dose: 4 units Insulin Detemir (Levemir Vial) 16 units SQ HS KWAKU Last Admin: 09/08/16 21:57 Dose: 16 units Lactobacillus Acidophilus (Bacid -) 1 tab PO DAILY KWAKU Last Admin: 09/08/16 11:12 Dose: 1 tab Lisinopril (Prinivil) 40 mg GT DAILY [facility] Last Admin: 09/08/16 11:12 Dose: 40 mg Metoprolol Tartrate (Lopressor -) 150 mg GT BID [facility] Last Admin: 09/08/16 21:57 Dose: 150 mg Metoprolol Tartrate (Lopressor Injection -) 5 mg IVPB Q6H PRN PRN Reason: HYPERTENSION Ranitidine HCl (Zantac Oral Solution -) 150 mg PO BID [facility] Last Admin: 09/08/16 21:58 Dose: 150 mg Scopolamine HBr (Transderm-Scop -) 1 patch TD Q72H [facility] Last Admin: 09/08/16 17:46 Dose: 1 patch Simethicone (Mylicon Liquid -) 40 mg PEG DAILY [facility] Last Admin: 09/08/16 11:14 Dose: 40 mg Gen: Trached, NAD Heart: S1S2 Lung: decreased breath sounds at the bases Abd: soft, (+) BS Groin: no active bleeding Ext: (+) edema Laboratory Results - last 24 hr 09/08/16 09/08/16 09/08/16 14:19 17:43 21:56 POC Glucometer 203 176 174 09/09/16 05:12 POC Glucometer 209 IMP: S/P Decannulation Illiac bleed s/p IR procedure with apparent hemostasis achieved Acute Brainstem CVA S/P Right Hemicoletomy due to Acute Lower Diverticular GI Bleed Acute Blood Loss Anemia Acute Respiratory Failure Pneumonia likely aspiration HTN DM CKD C diff Ag (+) Problem List - Problems (1) Anoxic brain damage Code: G93.1 (2) Fever Code: R50.9 (3) 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 PLAN: - O2 as needed - DVT/GI prophylaxis - D/C planning Dr Agosto
[2016-09-09] MEDS: LACTOBACILLUS ACIDOPHILUS 1 EACH TAB (FP) PO SCH (11:22)
[2016-09-09] MEDS: BACITRACIN 15 GM TUBE TOPICAL OINTMENT TP SCH (11:22)
[2016-09-09] MEDS: LISINOPRIL 20 MG TABLET (FP) GT SCH (11:23)
[2016-09-09] MEDS: MULTIVIT-MINERALS 236 ML ML GT SCH (11:23)
[2016-09-09] MEDS: METOPROLOL TARTRATE 50 MG TABLET (FP) GT SCH ×2 (11:23→23:24)
[2016-09-09] MEDS: SIMETHICONE 40 MG/0.6 ML BOTTLE PEG SCH (11:24)
[2016-09-09] MEDS: RANITIDINE HCL 150 MG/10 ML UNIT-DOSE CUP PO SCH ×2 (11:24→23:24)
[2016-09-09] MEDS: amLODIPine BESYLATE 10 MG TABLET (FP) GT SCH (11:24)
[2016-09-09] MEDS: AMINO ACIDS/PROTEIN HYDROLYS SUGAR-FREE 30 ML PACKET PO SCH (11:24)
--- NOTE | 2016-09-09 11:45 | PN ---
Progress Note (short form) - Note Progress Note: Subjective: The patient was seen and examined at the bedside, non-verbal. Tolerating room air well. Current Medications Generic Name Dose Route Start Last Admin Trade Name Freq PRN Reason Stop Dose Admin Acetaminophen 650 mg 05/26/16 14:23 09/06/16 22:53 Tylenol Oral Solution - GT 650 mg Q4H PRN Administration FEVER Amino Acids 30 ml 06/28/16 10:00 09/09/16 11:24 Prostat Sugar-Free Packet - PO 30 ml DAILY KWAKU Administration Amlodipine Besylate 10 mg 12/30/15 10:00 09/09/16 11:24 Norvasc - GT 10 mg DAILY KWAKU Administration Bacitracin 1 applic 08/09/16 16:15 09/09/16 11:22 Bacitracin - TP 1 applic DAILY KWAKU Administration Guaifenesin 10 ml 12/29/15 10:43 08/02/16 10:38 Robitussin Dm - PO 10 ml Q6H PRN Administration COUGH Insulin Aspart 1 vial 08/28/16 22:00 09/09/16 06:03 Novolog Vial Sliding Scale - SQ 4 units ACHS KWAKU Administration Protocol Insulin Detemir 16 units 09/07/16 22:00 09/08/16 21:57 Levemir Vial SQ 16 units HS KWAKU Administration Lactobacillus Acidophilus 1 tab 12/30/15 10:00 09/09/16 11:22 Bacid - PO 1 tab DAILY KWAKU Administration Lisinopril 40 mg 12/30/15 10:00 09/09/16 11:23 Prinivil GT 40 mg DAILY KWAKU Administration Metoprolol Tartrate 150 mg 12/29/15 22:00 09/09/16 11:23 Lopressor - GT 150 mg BID KWAKU Administration Metoprolol Tartrate 5 mg 12/29/15 10:43 Lopressor Injection - IVPB Q6H PRN HYPERTENSION Ranitidine HCl 150 mg 08/27/16 12:15 09/09/16 11:24 Zantac Oral Solution - PO 150 mg BID KWAKU Administration Scopolamine HBr 1 patch 05/20/16 15:45 09/08/16 17:46 Transderm-Scop - TD 1 patch Q72H KWAKU Administration Simethicone 40 mg 08/25/16 10:00 09/09/16 11:24 Mylicon Liquid - PEG 40 mg DAILY KWAKU Administration Objective: Vital Signs Period Temp Pulse Resp BP Sys/Santiago Pulse Ox Last 24 Hr 98.5 F-99.6 F 70-93 16-20 130-153/79-90 96 Physical Exam: General: No acute distress Neuro: Eye tracking to verbal stimulus Pulm: CTA anteriorly CV: RRR, S1S2 Abd: Soft, non-distended. Normoactive bowel sounds. Peg tube c/d/i Ext: Warm, well-perfused. 2+ DP/PT bilaterally CBCD WBC 7.9 K/mm3 (4.0-10.0) 09/04/16 05:45 RBC 4.09 M/mm3 (4.00-5.60) 09/04/16 05:45 Hgb 12.0 GM/dL (11.7-16.9) 09/04/16 05:45 Hct 35.6 % (35.4-49) 09/04/16 05:45 MCV 86.9 fl (80-96) 09/04/16 05:45 MCHC 33.8 g/dl (32.0-35.9) 09/04/16 05:45 RDW 14.7 % (11.9-15.9) 09/04/16 05:45 Plt Count 131 K/MM3 (134-434) L D 09/04/16 05:45 MPV 10.2 fl (7.5-11.1) 09/04/16 05:45 CMP Sodium 147 mmol/L (136-145) H 09/06/16 05:50 Potassium 3.9 mmol/L (3.5-5.1) 09/06/16 05:50 Chloride 108 mmol/L (98-107) H 09/06/16 05:50 Carbon Dioxide 31 mmol/L (21-32) 09/06/16 05:50 Anion Gap 8 (8-16) 09/06/16 05:50 BUN 27 mg/dL (7-18) H 09/06/16 05:50 Creatinine 0.9 mg/dL (0.7-1.3) 09/06/16 05:50 Creat Clearance w eGFR > 60 (>60) 09/04/16 05:45 Random Glucose 165 mg/dL (74-106) H 09/06/16 05:50 Calcium 10.0 mg/dL (8.5-10.1) 09/06/16 05:50 Total Bilirubin 0.2 mg/dL (0.2-1.0) D 09/04/16 05:45 AST 37 U/L (15-37) D 09/04/16 05:45 ALT 79 U/L (12-78) H D 09/04/16 05:45 Alkaline Phosphatase 131 U/L (45-117) H 09/04/16 05:45 Total Protein 8.3 g/dl (6.4-8.2) H 09/04/16 05:45 Albumin 3.4 g/dl (3.4-5.0) 09/04/16 05:45 CARDIAC ENZYMES Creatine Kinase 62 IU/L (38-174) 06/28/15 09:35 Troponin I 0.07 ng/ml (0.03-0.5) D 07/09/15 05:00 Assessment: 75 year old male with PMHx of HTN, IDDM, inguinal hernia who presented to the ED with diverticular bleed s/p Righ hemicolectomy with 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 Plan: 1. Anoxic brain injury s/p brainstem CVAs - Mental status unchanged 2. Respiratory failure secondary to anoxic brain injury - Cont O2 via room air (silicone Portex) - Trach removed 09/09/16 - Duonebs PRN 3. HTN - Continue lisinopril, amlodipine, lopressor 4. Multiple pressure ulcers - Turn and position q2h 5. IDDM - Continue Levemir at 16u sq qhs - ISS BGM ACHS 6. F/E/N: - 70 ml/hr Glucerna 1.5, 50 ml/hr water flushes - Prostat daily - Continue Zantac bid 7. Prophylaxis: - SCDs bilaterally - No chemical anticoagulation 2/2 spontaneous gluteal bleed and severe GI bleed - Functional quadriplegia CODE STATUS: DNR Visit type - Emergency Visit Emergency Visit: Yes ED Registration Date: 06/27/15 Care time: The patient presented to the Emergency Department on the above date and was hospitalized for further evaluation of their emergent condition. - New Patient This patient is new to me today: No - Critical Care Critical Care patient: No
[2016-09-09] MEDS: INSULIN DETEMIR 100 UNITS/ML MDV SQ SCH (23:24)
[2016-09-09] MEDS: ACETAMINOPHEN 650 MG/20.3 ML ORAL SOLUTION (CUPS) GT PRN (23:25)
[2016-09-10] MEDS: INSULIN SLIDING SCALE (NOVOLOG) 1 VIAL SQ SCH ×4 (06:30→22:22)
[2016-09-10] MEDS: LACTOBACILLUS ACIDOPHILUS 1 EACH TAB (FP) PO SCH (11:13)
[2016-09-10] MEDS: MULTIVIT-MINERALS 236 ML ML GT SCH (11:13)
[2016-09-10] MEDS: BACITRACIN 15 GM TUBE TOPICAL OINTMENT TP SCH (11:13)
[2016-09-10] MEDS: LISINOPRIL 20 MG TABLET (FP) GT SCH (11:14)
[2016-09-10] MEDS: METOPROLOL TARTRATE 50 MG TABLET (FP) GT SCH ×2 (11:14→22:22)
[2016-09-10] MEDS: SIMETHICONE 40 MG/0.6 ML BOTTLE PEG SCH (11:14)
[2016-09-10] MEDS: amLODIPine BESYLATE 10 MG TABLET (FP) GT SCH (11:14)
[2016-09-10] MEDS: RANITIDINE HCL 150 MG/10 ML UNIT-DOSE CUP PO SCH ×2 (11:15→22:22)
[2016-09-10] MEDS: AMINO ACIDS/PROTEIN HYDROLYS SUGAR-FREE 30 ML PACKET PO SCH (11:15)
--- NOTE | 2016-09-10 12:07 | PN ---
Progress Note (short form) - Note Progress Note: Subjective: The patient was seen and examined at the bedside, non-verbal. Tolerating room air well. Current Medications Generic Name Dose Route Start Last Admin Trade Name Freq PRN Reason Stop Dose Admin Acetaminophen 650 mg 05/26/16 14:23 09/09/16 23:25 Tylenol Oral Solution - GT 650 mg Q4H PRN Administration FEVER Amino Acids 30 ml 06/28/16 10:00 09/10/16 11:15 Prostat Sugar-Free Packet - PO 30 ml DAILY KWAKU Administration Amlodipine Besylate 10 mg 12/30/15 10:00 09/10/16 11:14 Norvasc - GT 10 mg DAILY KWAKU Administration Bacitracin 1 applic 08/09/16 16:15 09/10/16 11:13 Bacitracin - TP 1 applic DAILY KWAKU Administration Guaifenesin 10 ml 12/29/15 10:43 08/02/16 10:38 Robitussin Dm - PO 10 ml Q6H PRN Administration COUGH Insulin Aspart 1 vial 08/28/16 22:00 09/10/16 06:30 Novolog Vial Sliding Scale - SQ 2 units ACHS KWAKU Administration Protocol Insulin Detemir 16 units 09/07/16 22:00 09/09/16 23:24 Levemir Vial SQ 16 units HS KWAKU Administration Lactobacillus Acidophilus 1 tab 12/30/15 10:00 09/10/16 11:13 Bacid - PO 1 tab DAILY KWAKU Administration Lisinopril 40 mg 12/30/15 10:00 09/10/16 11:14 Prinivil GT 40 mg DAILY KWAKU Administration Metoprolol Tartrate 150 mg 12/29/15 22:00 09/10/16 11:14 Lopressor - GT 150 mg BID KWAKU Administration Metoprolol Tartrate 5 mg 12/29/15 10:43 Lopressor Injection - IVPB Q6H PRN HYPERTENSION Ranitidine HCl 150 mg 08/27/16 12:15 09/10/16 11:15 Zantac Oral Solution - PO 150 mg BID KWAKU Administration Scopolamine HBr 1 patch 05/20/16 15:45 09/08/16 17:46 Transderm-Scop - TD 1 patch Q72H KWAKU Administration Simethicone 40 mg 08/25/16 10:00 09/10/16 11:14 Mylicon Liquid - PEG 40 mg DAILY KWAKU Administration Objective: Vital Signs Period Temp Pulse Resp BP Sys/Santiago Pulse Ox Last 24 Hr 97.2 F-100.9 F 74-91 16-20 144-159/79-92 96 Physical Exam: General: No acute distress HEENT: Gauze dressing across neck, c/d/i Neuro: Eye tracking to verbal stimulus Pulm: CTA anteriorly CV: RRR, S1S2 Abd: Soft, non-distended. Normoactive bowel sounds. Peg tube c/d/i Ext: Warm, well-perfused. 2+ DP/PT bilaterally CBCD WBC 7.9 K/mm3 (4.0-10.0) 09/04/16 05:45 RBC 4.09 M/mm3 (4.00-5.60) 09/04/16 05:45 Hgb 12.0 GM/dL (11.7-16.9) 09/04/16 05:45 Hct 35.6 % (35.4-49) 09/04/16 05:45 MCV 86.9 fl (80-96) 09/04/16 05:45 MCHC 33.8 g/dl (32.0-35.9) 09/04/16 05:45 RDW 14.7 % (11.9-15.9) 09/04/16 05:45 Plt Count 131 K/MM3 (134-434) L D 09/04/16 05:45 MPV 10.2 fl (7.5-11.1) 09/04/16 05:45 CMP Sodium 147 mmol/L (136-145) H 09/06/16 05:50 Potassium 3.9 mmol/L (3.5-5.1) 09/06/16 05:50 Chloride 108 mmol/L (98-107) H 09/06/16 05:50 Carbon Dioxide 31 mmol/L (21-32) 09/06/16 05:50 Anion Gap 8 (8-16) 09/06/16 05:50 BUN 27 mg/dL (7-18) H 09/06/16 05:50 Creatinine 0.9 mg/dL (0.7-1.3) 09/06/16 05:50 Creat Clearance w eGFR > 60 (>60) 09/04/16 05:45 Random Glucose 165 mg/dL (74-106) H 09/06/16 05:50 Calcium 10.0 mg/dL (8.5-10.1) 09/06/16 05:50 Total Bilirubin 0.2 mg/dL (0.2-1.0) D 09/04/16 05:45 AST 37 U/L (15-37) D 09/04/16 05:45 ALT 79 U/L (12-78) H D 09/04/16 05:45 Alkaline Phosphatase 131 U/L (45-117) H 09/04/16 05:45 Total Protein 8.3 g/dl (6.4-8.2) H 09/04/16 05:45 Albumin 3.4 g/dl (3.4-5.0) 09/04/16 05:45 CARDIAC ENZYMES Creatine Kinase 62 IU/L (38-174) 06/28/15 09:35 Troponin I 0.07 ng/ml (0.03-0.5) D 07/09/15 05:00 Assessment: 75 year old male with PMHx of HTN, IDDM, inguinal hernia who presented to the ED with diverticular bleed s/p Righ hemicolectomy with 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 Plan: 1. Anoxic brain injury s/p brainstem CVAs - Mental status unchanged 2. Respiratory failure secondary to anoxic brain injury - Cont O2 via room air (silicone Portex) - Trach removed 09/09/16 - Duonebs PRN 3. HTN - Continue lisinopril, amlodipine, lopressor 4. Multiple pressure ulcers - Turn and position q2h 5. IDDM - Continue Levemir at 16u sq qhs - ISS BGM ACHS 6. F/E/N: - 70 ml/hr Glucerna 1.5, 50 ml/hr water flushes - Prostat daily - Continue Zantac bid 7. Prophylaxis: - SCDs bilaterally - No chemical anticoagulation 2/2 spontaneous gluteal bleed and severe GI bleed - Functional quadriplegia CODE STATUS: DNR Visit type - Emergency Visit Emergency Visit: Yes ED Registration Date: 06/27/15 Care time: The patient presented to the Emergency Department on the above date and was hospitalized for further evaluation of their emergent condition. - New Patient This patient is new to me today: No - Critical Care Critical Care patient: No
[2016-09-10] MEDS: INSULIN DETEMIR 100 UNITS/ML MDV SQ SCH (22:21)
[2016-09-10] MEDS: ACETAMINOPHEN 650 MG/20.3 ML ORAL SOLUTION (CUPS) GT PRN (22:21)
[2016-09-11] MEDS: INSULIN SLIDING SCALE (NOVOLOG) 1 VIAL SQ SCH ×3 (06:16→22:35)
[2016-09-11 08:06] LABS: MCH 29.3 pg (25.7-33.7); MCHC 33.8 g/dl (32.0-35.9); MEAN CELL VOLUME 86.6 fl (80-96); MEAN PLT VOLUME 10.7 fl (7.5-11.1); PLATELET COUNT 121 K/MM3 (134-434); RDW 15.2 % (11.9-15.9); WHITE BLOOD COUNT 8.5 K/mm3 (4.0-10.0)
[2016-09-11 08:42] LABS: ALBUMIN 3.6 g/dl (3.4-5.0); ALK PHOS 137 U/L (45-117); ANION GAP 10 (8-16); BILIRUBIN,TOTAL 0.3 mg/dL (0.2-1.0); CALCIUM 9.9 mg/dL (8.5-10.1); CO2 30 mmol/L (21-32); CREATININE 0.9 mg/dL (0.7-1.3); GLUCOSE,RANDOM 195 mg/dL (74-106); MAGNESIUM 2.5 mg/dL (1.8-2.4); SGOT/AST 28 U/L (15-37); SGPT/ALT 61 U/L (12-78); TOT PROT 8.3 g/dl (6.4-8.2)
[2016-09-11] MEDS: MULTIVIT-MINERALS 236 ML ML GT SCH (11:54)
[2016-09-11] MEDS: SIMETHICONE 40 MG/0.6 ML BOTTLE PEG SCH (11:55)
[2016-09-11] MEDS: LACTOBACILLUS ACIDOPHILUS 1 EACH TAB (FP) PO SCH (11:55)
[2016-09-11] MEDS: BACITRACIN 15 GM TUBE TOPICAL OINTMENT TP SCH (11:55)
[2016-09-11] MEDS: LISINOPRIL 20 MG TABLET (FP) GT SCH (12:06)
[2016-09-11] MEDS: amLODIPine BESYLATE 10 MG TABLET (FP) GT SCH (12:06)
[2016-09-11] MEDS: AMINO ACIDS/PROTEIN HYDROLYS SUGAR-FREE 30 ML PACKET PO SCH (12:06)
[2016-09-11] MEDS: METOPROLOL TARTRATE 50 MG TABLET (FP) GT SCH ×2 (12:06→22:34)
[2016-09-11] MEDS: RANITIDINE HCL 150 MG/10 ML UNIT-DOSE CUP PO SCH ×2 (12:07→22:35)
--- NOTE | 2016-09-11 12:57 | PN ---
Physical Exam: SUBJECTIVE: Patient seen and examined. Appears comfortable at rest. Non verbal at baseline. OBJECTIVE: Vital Signs Period Temp Pulse Resp BP Sys/Santiago Pulse Ox Last 24 Hr 98.8 F-100.2 F 78-96 18-18 134-143/80-90 94-97 GENERAL: appears comfortable, in no acute distress. Tolerating feeds. HEAD: Normal with no signs of trauma. LUNGS: Scattered rhonchi auscultated anteriorly HEART: Regular rate and rhythm, heart rate in the 90s ABDOMEN: peg tube LUQ - on Jevity feeds with water flushes NEUROLOGICAL: at baseline, opens eyes intermittently. Appears at baseline. Laboratory Results - last 24 hr 09/10/16 09/10/16 09/11/16 17:31 22:17 06:02 WBC RBC Hgb Hct MCV MCHC RDW Plt Count MPV Sodium Potassium Chloride Carbon Dioxide Anion Gap BUN Creatinine Creat Clearance w eGFR POC Glucometer 185 200 224 Random Glucose Calcium Phosphorus Magnesium Total Bilirubin AST ALT Alkaline Phosphatase Total Protein Albumin 09/11/16 09/11/16 07:45 07:45 WBC 8.5 RBC 4.04 Hgb 11.8 Hct 35.0 L MCV 86.6 MCHC 33.8 RDW 15.2 Plt Count 121 L MPV 10.7 Sodium 148 H Potassium 3.8 Chloride 108 H Carbon Dioxide 30 Anion Gap 10 BUN 29 H Creatinine 0.9 Creat Clearance w eGFR > 60 POC Glucometer Random Glucose 195 H Calcium 9.9 Phosphorus 3.0 Magnesium 2.5 H Total Bilirubin 0.3 D AST 28 D ALT 61 D Alkaline Phosphatase 137 H Total Protein 8.3 H Albumin 3.6 Active Medications Generic Name Dose Route Start Last Admin Trade Name Freq PRN Reason Stop Dose Admin Acetaminophen 650 mg 05/26/16 14:23 09/10/16 22:21 Tylenol Oral Solution - GT 650 mg Q4H PRN Administration FEVER Amino Acids 30 ml 06/28/16 10:00 09/11/16 12:06 Prostat Sugar-Free Packet - PO 30 ml DAILY KWAKU Administration Amlodipine Besylate 10 mg 12/30/15 10:00 09/11/16 12:06 Norvasc - GT 10 mg DAILY KWAKU Administration Bacitracin 1 applic 08/09/16 16:15 09/11/16 11:55 Bacitracin - TP 1 applic DAILY KWAKU Administration Guaifenesin 10 ml 12/29/15 10:43 08/02/16 10:38 Robitussin Dm - PO 10 ml Q6H PRN Administration COUGH Insulin Aspart 1 vial 08/28/16 22:00 09/11/16 06:16 Novolog Vial Sliding Scale - SQ 4 units ACHS KWAKU Administration Protocol Insulin Detemir 16 units 09/07/16 22:00 09/10/16 22:21 Levemir Vial SQ 16 units HS KWAKU Administration Lactobacillus Acidophilus 1 tab 12/30/15 10:00 09/11/16 11:55 Bacid - PO 1 tab DAILY KWAKU Administration Lisinopril 40 mg 12/30/15 10:00 09/11/16 12:06 Prinivil GT 40 mg DAILY KWAKU Administration Metoprolol Tartrate 150 mg 12/29/15 22:00 09/11/16 12:06 Lopressor - GT 150 mg BID KWAKU Administration Metoprolol Tartrate 5 mg 12/29/15 10:43 Lopressor Injection - IVPB Q6H PRN HYPERTENSION Ranitidine HCl 150 mg 08/27/16 12:15 09/11/16 12:07 Zantac Oral Solution - PO 150 mg BID KWAKU Administration Scopolamine HBr 1 patch 05/20/16 15:45 09/08/16 17:46 Transderm-Scop - TD 1 patch Q72H KWAKU Administration Simethicone 40 mg 08/25/16 10:00 09/11/16 11:55 Mylicon Liquid - PEG 40 mg DAILY KWAKU Administration ASSESSMENT/PLAN: Patient is a 75 year old male with a past medical history of IDDM, HTN and inguinal hernia. He presented to the emergency room on 06/27/2015 with a diverticular bleed s/p right hemicolectomy. His hospitalization was further complicated with a CVA with anoxic brain injury. He is s/p trach secondary to respiratory failure. 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 - Has respiratory failure secondary to anoxic brain injury. - He is on duonebs PRN, - Trach collar capped - changed on 09/09/2016 Fluid/Electrolytes: Hypernatremia - water flushes on tube feeds were increased to 60cc/hr for added hydration - recheck BMP weekly, may need to increase water flushes or add boluses if continue to trend up - monitor labs Endocrine: Diabetes - controlled - Continue Levemir 14 units at hs - capillary glucose ac/hs F.E.N. NPO Glucerna 70cc/hr with water flushes - increased water flushes to 60cc/hr secondary to hyperNA - continue to monitor Prostat for treatment of pressure ulcers BMP weekly Prophylaxis: DVT: SCDs - both legs. No AC: contraindicated secondary to GI bleed GI Regimen: Ranitidine BID Bowel regimen: deferred, having soft stools He is bed bound and a total care Code Status: DNR Disposition: requires continued inpatient care. Visit type - Emergency Visit Emergency Visit: Yes ED Registration Date: 06/27/15 Care time: The patient presented to the Emergency Department on the above date and was hospitalized for further evaluation of their emergent condition. - New Patient This patient is new to me today: No - Critical Care Critical Care patient: No - Discharge Referral Referred to [facility] No
[2016-09-11] MEDS: SCOPOLAMINE HYDROBROMIDE 1 PATCH PATCH.TD72 TD SCH (16:32)
[2016-09-11] MEDS: INSULIN DETEMIR 100 UNITS/ML MDV SQ SCH (22:34)
[2016-09-12] MEDS: INSULIN SLIDING SCALE (NOVOLOG) 1 VIAL SQ SCH ×4 (06:01→21:50)
[2016-09-12] MEDS: LISINOPRIL 20 MG TABLET (FP) GT SCH (11:56)
[2016-09-12] MEDS: METOPROLOL TARTRATE 50 MG TABLET (FP) GT SCH ×2 (11:57→21:51)
[2016-09-12] MEDS: LACTOBACILLUS ACIDOPHILUS 1 EACH TAB (FP) PO SCH (11:58)
[2016-09-12] MEDS: MULTIVIT-MINERALS 236 ML ML GT SCH (11:59)
[2016-09-12] MEDS: BACITRACIN 15 GM TUBE TOPICAL OINTMENT TP SCH (11:59)
[2016-09-12] MEDS: AMINO ACIDS/PROTEIN HYDROLYS SUGAR-FREE 30 ML PACKET PO SCH (12:00)
[2016-09-12] MEDS: amLODIPine BESYLATE 10 MG TABLET (FP) GT SCH (12:00)
[2016-09-12] MEDS: SIMETHICONE 40 MG/0.6 ML BOTTLE PEG SCH (12:00)
[2016-09-12] MEDS: RANITIDINE HCL 150 MG/10 ML UNIT-DOSE CUP PO SCH ×2 (12:01→21:48)
--- NOTE | 2016-09-12 16:47 | PN ---
Physical Exam: SUBJECTIVE: Patient seen and examined. He was laying in the bed, appears at his baseline. Non verbal. OBJECTIVE: GENERAL: appears comfortable, in no acute distress. Tolerating feeds. HEAD: Normal with no signs of trauma. LUNGS: Scattered rhonchi auscultated anteriorly HEART: Regular rate and rhythm, heart rate in the 90s ABDOMEN: peg tube LUQ - on Jevity feeds with water flushes NEUROLOGICAL: at baseline, opens eyes intermittently. Appears at baseline. Vital Signs Period Temp Pulse Resp BP Sys/Santiago Pulse Ox Last 24 Hr 98.7 F-99.8 F 76-100 16-20 124-155/80-91 96-97 Laboratory Results - last 24 hr 09/11/16 09/12/16 09/12/16 22:32 05:59 14:51 POC Glucometer 214 247 212 Active Medications Generic Name Dose Route Start Last Admin Trade Name Freq PRN Reason Stop Dose Admin Acetaminophen 650 mg 05/26/16 14:23 09/10/16 22:21 Tylenol Oral Solution - GT 650 mg Q4H PRN Administration FEVER Amino Acids 30 ml 06/28/16 10:00 09/12/16 12:00 Prostat Sugar-Free Packet - PO 30 ml DAILY KWAKU Administration Amlodipine Besylate 10 mg 12/30/15 10:00 09/12/16 12:00 Norvasc - GT 10 mg DAILY KWAKU Administration Bacitracin 1 applic 08/09/16 16:15 09/12/16 11:59 Bacitracin - TP 1 applic DAILY KWAKU Administration Guaifenesin 10 ml 12/29/15 10:43 08/02/16 10:38 Robitussin Dm - PO 10 ml Q6H PRN Administration COUGH Insulin Aspart 1 vial 08/28/16 22:00 09/12/16 14:56 Novolog Vial Sliding Scale - SQ 4 units ACHS KWAKU Administration Protocol Insulin Detemir 16 units 09/07/16 22:00 09/11/16 22:34 Levemir Vial SQ 16 units HS KWAKU Administration Lactobacillus Acidophilus 1 tab 12/30/15 10:00 09/12/16 11:58 Bacid - PO 1 tab DAILY KWAKU Administration Lisinopril 40 mg 12/30/15 10:00 09/12/16 11:56 Prinivil GT 40 mg DAILY KWAKU Administration Metoprolol Tartrate 150 mg 12/29/15 22:00 09/12/16 11:57 Lopressor - GT 150 mg BID KWAKU Administration Metoprolol Tartrate 5 mg 12/29/15 10:43 Lopressor Injection - IVPB Q6H PRN HYPERTENSION Ranitidine HCl 150 mg 08/27/16 12:15 09/12/16 12:01 Zantac Oral Solution - PO 150 mg BID KWAKU Administration Scopolamine HBr 1 patch 05/20/16 15:45 09/11/16 16:32 Transderm-Scop - TD 1 patch Q72H KWAKU Administration Simethicone 40 mg 08/25/16 10:00 09/12/16 12:00 Mylicon Liquid - PEG 40 mg DAILY KWAKU Administration ASSESSMENT/PLAN: Patient is a 75 year old male with a past medical history of IDDM, HTN and inguinal hernia. He presented to the emergency room on 06/27/2015 with a diverticular bleed s/p right hemicolectomy. His hospitalization was further complicated with a CVA with anoxic brain injury. He is s/p trach secondary to respiratory failure. 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 - Has respiratory failure secondary to anoxic brain injury. - He is on duonebs PRN, - Trach collar capped - changed on 09/09/2016 Fluid/Electrolytes: Hypernatremia - water flushes on tube feeds were increased to 60cc/hr for added hydration, monitor BMP - recheck BMP weekly, may need to increase water flushes or add boluses if continue to trend up - monitor labs Endocrine: Diabetes - controlled - Continue Levemir 14 units at hs - capillary glucose ac/hs F.E.N. NPO Glucerna 70cc/hr with water flushes - increased water flushes to 60cc/hr secondary to hyperNA - continue to monitor Prostat for treatment of pressure ulcers BMP weekly Prophylaxis: DVT: SCDs - both legs. No AC: contraindicated secondary to GI bleed GI Regimen: Ranitidine BID Bowel regimen: deferred, having soft stools He is bed bound and a total care Code Status: DNR Disposition: requires continued inpatient care. Visit type - Emergency Visit Emergency Visit: Yes ED Registration Date: 06/27/15 Care time: The patient presented to the Emergency Department on the above date and was hospitalized for further evaluation of their emergent condition. - New Patient This patient is new to me today: No - Critical Care Critical Care patient: No - Discharge Referral Referred to [facility] Med [facility] No
[2016-09-12] MEDS: INSULIN DETEMIR 100 UNITS/ML MDV SQ SCH (21:51)
[2016-09-13] MEDS: INSULIN SLIDING SCALE (NOVOLOG) 1 VIAL SQ SCH ×3 (06:36→22:06)
--- NOTE | 2016-09-13 12:05 | PN ---
Progress Note (short form) - Note Progress Note: Subjective: The patient was seen and examined at the bedside, non-verbal. Tolerating room air well. Current Medications Generic Name Dose Route Start Last Admin Trade Name Freq PRN Reason Stop Dose Admin Acetaminophen 650 mg 05/26/16 14:23 09/10/16 22:21 Tylenol Oral Solution - GT 650 mg Q4H PRN Administration FEVER Amino Acids 30 ml 06/28/16 10:00 09/12/16 12:00 Prostat Sugar-Free Packet - PO 30 ml DAILY KWAKU Administration Amlodipine Besylate 10 mg 12/30/15 10:00 09/12/16 12:00 Norvasc - GT 10 mg DAILY KWAKU Administration Bacitracin 1 applic 08/09/16 16:15 09/12/16 11:59 Bacitracin - TP 1 applic DAILY KWAKU Administration Guaifenesin 10 ml 12/29/15 10:43 08/02/16 10:38 Robitussin Dm - PO 10 ml Q6H PRN Administration COUGH Insulin Aspart 1 vial 08/28/16 22:00 09/13/16 06:36 Novolog Vial Sliding Scale - SQ 2 units ACHS KWAKU Administration Protocol Insulin Detemir 16 units 09/07/16 22:00 09/12/16 21:51 Levemir Vial SQ 16 units HS KWAKU Administration Lactobacillus Acidophilus 1 tab 12/30/15 10:00 09/12/16 11:58 Bacid - PO 1 tab DAILY KWAKU Administration Lisinopril 40 mg 12/30/15 10:00 09/12/16 11:56 Prinivil GT 40 mg DAILY KWAKU Administration Metoprolol Tartrate 150 mg 12/29/15 22:00 09/12/16 21:51 Lopressor - GT 150 mg BID KWAKU Administration Metoprolol Tartrate 5 mg 12/29/15 10:43 Lopressor Injection - IVPB Q6H PRN HYPERTENSION Ranitidine HCl 150 mg 08/27/16 12:15 09/12/16 21:48 Zantac Oral Solution - PO 150 mg BID KWAKU Administration Scopolamine HBr 1 patch 05/20/16 15:45 09/11/16 16:32 Transderm-Scop - TD 1 patch Q72H KWAKU Administration Simethicone 40 mg 08/25/16 10:00 09/12/16 12:00 Mylicon Liquid - PEG 40 mg DAILY KWAKU Administration Objective: Vital Signs Period Temp Pulse Resp BP Sys/Santiago Pulse Ox Last 24 Hr 98.2 F-99.3 F 76-100 16-20 132-141/79-90 94-98 Physical Exam: General: No acute distress HEENT: Gauze dressing across neck, c/d/i Neuro: Eye tracking to verbal stimulus Pulm: CTA anteriorly CV: RRR, S1S2 Abd: Soft, non-distended. Normoactive bowel sounds. Peg tube c/d/i Ext: Warm, well-perfused. 2+ DP/PT bilaterally Skin: Right buttock ulcers x2 CBCD WBC 8.5 K/mm3 (4.0-10.0) 09/11/16 07:45 RBC 4.04 M/mm3 (4.00-5.60) 09/11/16 07:45 Hgb 11.8 GM/dL (11.7-16.9) 09/11/16 07:45 Hct 35.0 % (35.4-49) L 09/11/16 07:45 MCV 86.6 fl (80-96) 09/11/16 07:45 MCHC 33.8 g/dl (32.0-35.9) 09/11/16 07:45 RDW 15.2 % (11.9-15.9) 09/11/16 07:45 Plt Count 121 K/MM3 (134-434) L 09/11/16 07:45 MPV 10.7 fl (7.5-11.1) 09/11/16 07:45 CMP Sodium 148 mmol/L (136-145) H 09/11/16 07:45 Potassium 3.8 mmol/L (3.5-5.1) 09/11/16 07:45 Chloride 108 mmol/L (98-107) H 09/11/16 07:45 Carbon Dioxide 30 mmol/L (21-32) 09/11/16 07:45 Anion Gap 10 (8-16) 09/11/16 07:45 BUN 29 mg/dL (7-18) H 09/11/16 07:45 Creatinine 0.9 mg/dL (0.7-1.3) 09/11/16 07:45 Creat Clearance w eGFR > 60 (>60) 09/11/16 07:45 Random Glucose 195 mg/dL (74-106) H 09/11/16 07:45 Calcium 9.9 mg/dL (8.5-10.1) 09/11/16 07:45 Total Bilirubin 0.3 mg/dL (0.2-1.0) D 09/11/16 07:45 AST 28 U/L (15-37) D 09/11/16 07:45 ALT 61 U/L (12-78) D 09/11/16 07:45 Alkaline Phosphatase 137 U/L (45-117) H 09/11/16 07:45 Total Protein 8.3 g/dl (6.4-8.2) H 09/11/16 07:45 Albumin 3.6 g/dl (3.4-5.0) 09/11/16 07:45 CARDIAC ENZYMES Creatine Kinase 62 IU/L (38-174) 06/28/15 09:35 Troponin I 0.07 ng/ml (0.03-0.5) D 07/09/15 05:00 Assessment: 75 year old male with PMHx of HTN, IDDM, inguinal hernia who presented to the ED with diverticular bleed s/p Righ hemicolectomy with 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 Plan: 1. Anoxic brain injury s/p brainstem CVAs - Mental status unchanged 2. Respiratory failure secondary to anoxic brain injury - Cont O2 via room air (silicone Portex) - Trach removed 09/09/16 - Duonebs PRN 3. HTN - Continue lisinopril, amlodipine, lopressor 4. Multiple pressure ulcers - Turn and position q2h 5. IDDM - Continue Levemir at 16u sq qhs - ISS BGM ACHS 6. F/E/N: - 70 ml/hr Glucerna 1.5, 50 ml/hr water flushes - Prostat daily - Continue Zantac bid 7. Prophylaxis: - SCDs bilaterally - No chemical anticoagulation 2/2 spontaneous gluteal bleed and severe GI bleed - Functional quadriplegia CODE STATUS: DNR Visit type - Emergency Visit Emergency Visit: Yes ED Registration Date: 06/27/15 Care time: The patient presented to the Emergency Department on the above date and was hospitalized for further evaluation of their emergent condition. - New Patient This patient is new to me today: No - Critical Care Critical Care patient: No
[2016-09-13] MEDS: BACITRACIN 15 GM TUBE TOPICAL OINTMENT TP SCH (12:09)
[2016-09-13] MEDS: LACTOBACILLUS ACIDOPHILUS 1 EACH TAB (FP) PO SCH (12:09)
[2016-09-13] MEDS: METOPROLOL TARTRATE 50 MG TABLET (FP) GT SCH ×2 (12:10→22:07)
[2016-09-13] MEDS: SIMETHICONE 40 MG/0.6 ML BOTTLE PEG SCH (12:11)
[2016-09-13] MEDS: amLODIPine BESYLATE 10 MG TABLET (FP) GT SCH (12:12)
[2016-09-13] MEDS: MULTIVIT-MINERALS 236 ML ML GT SCH (12:12)
[2016-09-13] MEDS: LISINOPRIL 20 MG TABLET (FP) GT SCH (12:12)
[2016-09-13] MEDS: RANITIDINE HCL 150 MG/10 ML UNIT-DOSE CUP PO SCH ×2 (12:13→22:07)
[2016-09-13] MEDS: AMINO ACIDS/PROTEIN HYDROLYS SUGAR-FREE 30 ML PACKET PO SCH (12:13)
[2016-09-13] MEDS: INSULIN DETEMIR 100 UNITS/ML MDV SQ SCH (22:07)
[2016-09-14] MEDS: INSULIN SLIDING SCALE (NOVOLOG) 1 VIAL SQ SCH ×5 (06:04→21:32)
[2016-09-14] MEDS: LISINOPRIL 20 MG TABLET (FP) GT SCH (09:49)
[2016-09-14] MEDS: METOPROLOL TARTRATE 50 MG TABLET (FP) GT SCH ×2 (09:50→21:31)
[2016-09-14] MEDS: MULTIVIT-MINERALS 236 ML ML GT SCH (09:50)
[2016-09-14] MEDS: SIMETHICONE 40 MG/0.6 ML BOTTLE PEG SCH (09:51)
[2016-09-14] MEDS: amLODIPine BESYLATE 10 MG TABLET (FP) GT SCH (09:51)
[2016-09-14] MEDS: LACTOBACILLUS ACIDOPHILUS 1 EACH TAB (FP) PO SCH (09:51)
[2016-09-14] MEDS: RANITIDINE HCL 150 MG/10 ML UNIT-DOSE CUP PO SCH ×2 (09:52→21:31)
[2016-09-14] MEDS: AMINO ACIDS/PROTEIN HYDROLYS SUGAR-FREE 30 ML PACKET PO SCH (09:52)
--- NOTE | 2016-09-14 12:17 | PN ---
Progress Note (short form) - Note Progress Note: Subjective: The patient was seen and examined at the bedside, non-verbal. Tolerating room air well. Current Medications Generic Name Dose Route Start Last Admin Trade Name Freq PRN Reason Stop Dose Admin Acetaminophen 650 mg 05/26/16 14:23 09/10/16 22:21 Tylenol Oral Solution - GT 650 mg Q4H PRN Administration FEVER Amino Acids 30 ml 06/28/16 10:00 09/14/16 09:52 Prostat Sugar-Free Packet - PO 30 ml DAILY KWAKU Administration Amlodipine Besylate 10 mg 12/30/15 10:00 09/14/16 09:51 Norvasc - GT 10 mg DAILY KWAKU Administration Bacitracin 1 applic 08/09/16 16:15 09/13/16 12:09 Bacitracin - TP 1 applic DAILY KWAKU Administration Guaifenesin 10 ml 12/29/15 10:43 08/02/16 10:38 Robitussin Dm - PO 10 ml Q6H PRN Administration COUGH Insulin Aspart 1 vial 08/28/16 22:00 09/14/16 12:08 Novolog Vial Sliding Scale - SQ 4 units ACHS KWAKU Administration Protocol Insulin Detemir 16 units 09/07/16 22:00 09/13/16 22:07 Levemir Vial SQ 16 units HS KWAKU Administration Lactobacillus Acidophilus 1 tab 12/30/15 10:00 09/14/16 09:51 Bacid - PO 1 tab DAILY KWAKU Administration Lisinopril 40 mg 12/30/15 10:00 09/14/16 09:49 Prinivil GT 40 mg DAILY KWAKU Administration Metoprolol Tartrate 150 mg 12/29/15 22:00 09/14/16 09:50 Lopressor - GT 150 mg BID KWAKU Administration Metoprolol Tartrate 5 mg 12/29/15 10:43 Lopressor Injection - IVPB Q6H PRN HYPERTENSION Ranitidine HCl 150 mg 08/27/16 12:15 09/14/16 09:52 Zantac Oral Solution - PO 150 mg BID KWAKU Administration Scopolamine HBr 1 patch 05/20/16 15:45 09/11/16 16:32 Transderm-Scop - TD 1 patch Q72H KWAKU Administration Simethicone 40 mg 08/25/16 10:00 09/14/16 09:51 Mylicon Liquid - PEG 40 mg DAILY KWAKU Administration Objective: Vital Signs Period Temp Pulse Resp BP Sys/Santiago Pulse Ox Last 24 Hr 98.1 F-99.4 F 84-96 20-22 124-156/80-89 97 Physical Exam: General: No acute distress HEENT: Gauze dressing across neck, c/d/i Neuro: Eye tracking to verbal stimulus Pulm: CTA anteriorly CV: RRR, S1S2 Abd: Soft, non-distended. Normoactive bowel sounds. Peg tube c/d/i Ext: Warm, well-perfused. 2+ DP/PT bilaterally Skin: Right buttock ulcers x2 CBCD WBC 8.5 K/mm3 (4.0-10.0) 09/11/16 07:45 RBC 4.04 M/mm3 (4.00-5.60) 09/11/16 07:45 Hgb 11.8 GM/dL (11.7-16.9) 09/11/16 07:45 Hct 35.0 % (35.4-49) L 09/11/16 07:45 MCV 86.6 fl (80-96) 09/11/16 07:45 MCHC 33.8 g/dl (32.0-35.9) 09/11/16 07:45 RDW 15.2 % (11.9-15.9) 09/11/16 07:45 Plt Count 121 K/MM3 (134-434) L 09/11/16 07:45 MPV 10.7 fl (7.5-11.1) 09/11/16 07:45 CMP Sodium 148 mmol/L (136-145) H 09/11/16 07:45 Potassium 3.8 mmol/L (3.5-5.1) 09/11/16 07:45 Chloride 108 mmol/L (98-107) H 09/11/16 07:45 Carbon Dioxide 30 mmol/L (21-32) 09/11/16 07:45 Anion Gap 10 (8-16) 09/11/16 07:45 BUN 29 mg/dL (7-18) H 09/11/16 07:45 Creatinine 0.9 mg/dL (0.7-1.3) 09/11/16 07:45 Creat Clearance w eGFR > 60 (>60) 09/11/16 07:45 Random Glucose 195 mg/dL (74-106) H 09/11/16 07:45 Calcium 9.9 mg/dL (8.5-10.1) 09/11/16 07:45 Total Bilirubin 0.3 mg/dL (0.2-1.0) D 09/11/16 07:45 AST 28 U/L (15-37) D 09/11/16 07:45 ALT 61 U/L (12-78) D 09/11/16 07:45 Alkaline Phosphatase 137 U/L (45-117) H 09/11/16 07:45 Total Protein 8.3 g/dl (6.4-8.2) H 09/11/16 07:45 Albumin 3.6 g/dl (3.4-5.0) 09/11/16 07:45 CARDIAC ENZYMES Creatine Kinase 62 IU/L (38-174) 06/28/15 09:35 Troponin I 0.07 ng/ml (0.03-0.5) D 07/09/15 05:00 Assessment: 75 year old male with PMHx of HTN, IDDM, inguinal hernia who presented to the ED with diverticular bleed s/p Righ hemicolectomy with 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 Plan: 1. Anoxic brain injury s/p brainstem CVAs - Mental status unchanged 2. Respiratory failure secondary to anoxic brain injury - Cont O2 via room air, NC when needed - Trach removed 09/09/16 - Duonebs PRN 3. HTN - Continue lisinopril, amlodipine, lopressor 4. Multiple pressure ulcers - Turn and position q2h 5. IDDM - Continue Levemir at 16u sq qhs - ISS BGM ACHS 6. F/E/N: - 70 ml/hr Glucerna 1.5, 50 ml/hr water flushes - Prostat daily - Continue Zantac bid 7. Prophylaxis: - SCDs bilaterally - No chemical anticoagulation 2/2 spontaneous gluteal bleed and severe GI bleed - Functional quadriplegia CODE STATUS: DNR Visit type - Emergency Visit Emergency Visit: Yes ED Registration Date: 06/27/15 Care time: The patient presented to the Emergency Department on the above date and was hospitalized for further evaluation of their emergent condition. - New Patient This patient is new to me today: No - Critical Care Critical Care patient: No
[2016-09-14] MEDS: SCOPOLAMINE HYDROBROMIDE 1 PATCH PATCH.TD72 TD SCH (15:25)
[2016-09-14] MEDS: BACITRACIN 15 GM TUBE TOPICAL OINTMENT TP SCH (15:26)
[2016-09-14] MEDS: INSULIN DETEMIR 100 UNITS/ML MDV SQ SCH (21:32)
[2016-09-15] MEDS: INSULIN SLIDING SCALE (NOVOLOG) 1 VIAL SQ SCH ×5 (06:31→21:37)
[2016-09-15] MEDS: METOPROLOL TARTRATE 50 MG TABLET (FP) GT SCH ×2 (11:30→21:37)
[2016-09-15] MEDS: amLODIPine BESYLATE 10 MG TABLET (FP) GT SCH (11:30)
[2016-09-15] MEDS: MULTIVIT-MINERALS 236 ML ML GT SCH (11:32)
[2016-09-15] MEDS: SIMETHICONE 40 MG/0.6 ML BOTTLE PEG SCH (11:33)
[2016-09-15] MEDS: RANITIDINE HCL 150 MG/10 ML UNIT-DOSE CUP PO SCH ×2 (11:33→21:37)
[2016-09-15] MEDS: AMINO ACIDS/PROTEIN HYDROLYS SUGAR-FREE 30 ML PACKET PO SCH (11:34)
[2016-09-15] MEDS: LISINOPRIL 20 MG TABLET (FP) GT SCH (11:34)
[2016-09-15] MEDS: LACTOBACILLUS ACIDOPHILUS 1 EACH TAB (FP) PO SCH (11:34)
[2016-09-15] MEDS: BACITRACIN 15 GM TUBE TOPICAL OINTMENT TP SCH (11:35)
--- NOTE | 2016-09-15 16:31 | PN ---
Physical Exam: SUBJECTIVE: Patient seen and examined. Noted to have a fever and tachycardia today. Heart rate on my exam was 104. Otherwise, appears at baseline. OBJECTIVE: GENERAL: appears comfortable, in no acute distress. Tolerating feeds. HEAD: Normal with no signs of trauma. LUNGS: Scattered rhonchi auscultated anteriorly HEART: Regular rate and rhythm, heart rate in the 90s ABDOMEN: peg tube LUQ - on Jevity feeds with water flushes NEUROLOGICAL: at baseline, opens eyes intermittently. Appears at baseline. Vital Signs Period Temp Pulse Resp BP Sys/Santiago Pulse Ox Last 24 Hr 98.4 F-100.1 F 89-110 18-20 133-155/84-96 100 Laboratory Results - last 24 hr 09/14/16 09/14/16 09/15/16 17:06 21:29 06:16 POC Glucometer 160 204 244 09/15/16 11:40 POC Glucometer 225 Active Medications Generic Name Dose Route Start Last Admin Trade Name Freq PRN Reason Stop Dose Admin Acetaminophen 650 mg 05/26/16 14:23 09/10/16 22:21 Tylenol Oral Solution - GT 650 mg Q4H PRN Administration FEVER Amino Acids 30 ml 06/28/16 10:00 09/15/16 11:34 Prostat Sugar-Free Packet - PO 30 ml DAILY KWAKU Administration Amlodipine Besylate 10 mg 12/30/15 10:00 09/15/16 11:30 Norvasc - GT 10 mg DAILY KWAKU Administration Bacitracin 1 applic 08/09/16 16:15 09/15/16 11:35 Bacitracin - TP 1 applic DAILY KWAKU Administration Guaifenesin 10 ml 12/29/15 10:43 08/02/16 10:38 Robitussin Dm - PO 10 ml Q6H PRN Administration COUGH Insulin Aspart 1 vial 08/28/16 22:00 09/15/16 12:44 Novolog Vial Sliding Scale - SQ 4 units ACHS KWAKU Administration Protocol Insulin Detemir 18 units 09/15/16 22:00 Levemir Vial SQ HS KWAKU Lactobacillus Acidophilus 1 tab 12/30/15 10:00 09/15/16 11:34 Bacid - PO 1 tab DAILY KWAKU Administration Lisinopril 40 mg 12/30/15 10:00 09/15/16 11:34 Prinivil GT 40 mg DAILY KWAKU Administration Metoprolol Tartrate 150 mg 12/29/15 22:00 09/15/16 11:30 Lopressor - GT 150 mg BID KWAKU Administration Metoprolol Tartrate 5 mg 12/29/15 10:43 Lopressor Injection - IVPB Q6H PRN HYPERTENSION Ranitidine HCl 150 mg 08/27/16 12:15 09/15/16 11:33 Zantac Oral Solution - PO 150 mg BID KWAKU Administration Scopolamine HBr 1 patch 05/20/16 15:45 09/14/16 15:25 Transderm-Scop - TD 1 patch Q72H KWAKU Administration Simethicone 40 mg 08/25/16 10:00 09/15/16 11:33 Mylicon Liquid - PEG 40 mg DAILY KWAKU Administration ASSESSMENT/PLAN: Patient is a 75 year old male with a past medical history of IDDM, HTN and inguinal hernia. He presented to the emergency room on 06/27/2015 with a diverticular bleed s/p right hemicolectomy. His hospitalization was further complicated with a CVA with anoxic brain injury. He is s/p trach secondary to respiratory failure. 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 Has respiratory failure secondary to anoxic brain injury. He is on duonebs PRN, Trach collar capped - changed on 09/09/2016 Fluid/Electrolytes: Hypernatremia - acute Plan: water flushes on tube feeds were increased to 60cc/hr for added hydration, monitor BMP may need to increase water flushes or add boluses if continue to trend up BMP ordered for today Endocrine: Diabetes - chronic Plan: BGMs in the 200s, Levemir increased to 18 units at HS capillary glucose ac/hs F.E.N. NPO Glucerna 70cc/hr with water flushes - increased water flushes to 60cc/hr for added hydration Prostat for treatment of pressure ulcers BMP today Prophylaxis: DVT: SCDs - both legs. No AC: contraindicated secondary to GI bleed GI Regimen: Ranitidine BID Bowel regimen: deferred, having soft stools He is bed bound and a total care Code Status: DNR Disposition: requires continued inpatient care. Visit type - Emergency Visit Emergency Visit: Yes ED Registration Date: 06/27/15 Care time: The patient presented to the Emergency Department on the above date and was hospitalized for further evaluation of their emergent condition. - New Patient This patient is new to me today: No - Critical Care Critical Care patient: No - Discharge Referral Referred to [facility] No
[2016-09-15] MEDS: INSULIN DETEMIR 100 UNITS/ML MDV SQ SCH (21:37)
[2016-09-15 22:37] LABS: URINE APPEARANCE CLEAR; URINE BILIRUBIN NEGATIVE (NEGATIVE); URINE BLOOD NEGATIVE (NEGATIVE); URINE COLOR YELLOW; URINE GLUCOSE (UA) NEGATIVE (NEGATIVE); URINE KETONE NEGATIVE (NEGATIVE); URINE LEUK ESTERASE NEGATIVE (NEGATIVE); URINE NITRITE NEGATIVE (NEGATIVE); URINE PROTEIN NEGATIVE (NEGATIVE); URINE UROBILINOGEN NEGATIVE E.U./dl (0.2-1.0)
[2016-09-16] MEDS: INSULIN SLIDING SCALE (NOVOLOG) 1 VIAL SQ SCH ×4 (06:28→21:16)
[2016-09-16 07:30] LABS: BASOPHIL 0.5 % (0-2.0); EOSINOPHIL 1.7 % (0-4.5); MCH 29.2 pg (25.7-33.7); MCHC 33.2 g/dl (32.0-35.9); MEAN CELL VOLUME 87.8 fl (80-96); MEAN PLT VOLUME 11.3 fl (7.5-11.1); NEUTROPHILS 65.3 % (42.8-82.8); PLATELET COUNT 127 K/MM3 (134-434); WHITE BLOOD COUNT 12.9 K/mm3 (4.0-10.0)
[2016-09-16 08:10] LABS: ALBUMIN 3.5 g/dl (3.4-5.0); ALK PHOS 132 U/L (45-117); ANION GAP 9 (8-16); BILIRUBIN,TOTAL 0.3 mg/dL (0.2-1.0); CO2 29 mmol/L (21-32); CREATININE 0.9 mg/dL (0.7-1.3); GLUCOSE,RANDOM 213 mg/dL (74-106); SGOT/AST 54 U/L (15-37); SGPT/ALT 110 U/L (12-78); TOT PROT 8.2 g/dl (6.4-8.2)
[2016-09-16] MEDS: LACTOBACILLUS ACIDOPHILUS 1 EACH TAB (FP) PO SCH (11:15)
[2016-09-16] MEDS: BACITRACIN 15 GM TUBE TOPICAL OINTMENT TP SCH (11:16)
[2016-09-16] MEDS: MULTIVIT-MINERALS 236 ML ML GT SCH (11:16)
[2016-09-16] MEDS: SIMETHICONE 40 MG/0.6 ML BOTTLE PEG SCH (11:17)
[2016-09-16] MEDS: RANITIDINE HCL 150 MG/10 ML UNIT-DOSE CUP PO SCH ×2 (11:17→21:15)
[2016-09-16] MEDS: LISINOPRIL 20 MG TABLET (FP) GT SCH (11:33)
[2016-09-16] MEDS: METOPROLOL TARTRATE 50 MG TABLET (FP) GT SCH ×2 (11:33→21:16)
[2016-09-16] MEDS: amLODIPine BESYLATE 10 MG TABLET (FP) GT SCH (11:34)
[2016-09-16] MEDS: ACETAMINOPHEN 650 MG/20.3 ML ORAL SOLUTION (CUPS) GT PRN ×2 (11:46→20:15)
--- NOTE | 2016-09-16 12:56 | PN ---
Physical Exam: SUBJECTIVE: Patient seen and examined. Appears at his baseline, has persistent fevers with tachycardia. OBJECTIVE: GENERAL: appears comfortable, in no acute distress. Tolerating feeds. HEAD: Normal with no signs of trauma. LUNGS: Scattered rhonchi auscultated anteriorly HEART: Regular rate and rhythm, heart rate in the 90s ABDOMEN: peg tube LUQ - on Jevity feeds with water flushes NEUROLOGICAL: at baseline, opens eyes intermittently. Appears at baseline. Vital Signs Period Temp Pulse Resp BP Sys/Santiago Pulse Ox Last 24 Hr 98.9 F-99.8 F 98-103 20-20 132-150/84-91 99 Laboratory Results - last 24 hr 09/15/16 09/15/16 09/15/16 18:16 21:36 21:50 WBC RBC Hgb Hct MCV MCHC RDW Plt Count MPV Neutrophils % Lymphocytes % Monocytes % Eosinophils % Basophils % Sodium Potassium Chloride Carbon Dioxide Anion Gap BUN Creatinine Creat Clearance w eGFR POC Glucometer 163 160 Random Glucose Calcium Total Bilirubin AST ALT Alkaline Phosphatase Total Protein Albumin Urine Color Yellow Urine Appearance Clear Urine pH 7.0 Ur Specific [place] 1.020 Urine Protein Negative Urine Glucose (UA) Negative Urine Ketones Negative Urine Blood Negative Urine Nitrite Negative Urine Bilirubin Negative Urine Urobilinogen Negative Ur Leukocyte Esterase Negative 09/16/16 09/16/16 09/16/16 05:49 06:00 06:00 WBC 12.9 H D RBC 4.35 Hgb 12.7 Hct 38.2 MCV 87.8 MCHC 33.2 RDW 16.0 H Plt Count 127 L MPV 11.3 H Neutrophils % 65.3 Lymphocytes % 27.3 Monocytes % 5.2 Eosinophils % 1.7 Basophils % 0.5 Sodium 150 H Potassium 3.8 Chloride 112 H Carbon Dioxide 29 Anion Gap 9 BUN 32 H Creatinine 0.9 Creat Clearance w eGFR > 60 POC Glucometer 200 Random Glucose 213 H Calcium 10.0 Total Bilirubin 0.3 AST 54 H D ALT 110 H D Alkaline Phosphatase 132 H Total Protein 8.2 Albumin 3.5 Urine Color Urine Appearance Urine pH Ur Specific [place] Urine Protein Urine Glucose (UA) Urine Ketones Urine Blood Urine Nitrite Urine Bilirubin Urine Urobilinogen Ur Leukocyte Esterase 09/16/16 11:23 WBC RBC Hgb Hct MCV MCHC RDW Plt Count MPV Neutrophils % Lymphocytes % Monocytes % Eosinophils % Basophils % Sodium Potassium Chloride Carbon Dioxide Anion Gap BUN Creatinine Creat Clearance w eGFR POC Glucometer 223 Random Glucose Calcium Total Bilirubin AST ALT Alkaline Phosphatase Total Protein Albumin Urine Color Urine Appearance Urine pH Ur Specific [place] Urine Protein Urine Glucose (UA) Urine Ketones Urine Blood Urine Nitrite Urine Bilirubin Urine Urobilinogen Ur Leukocyte Esterase Active Medications Generic Name Dose Route Start Last Admin Trade Name Freq PRN Reason Stop Dose Admin Acetaminophen 650 mg 05/26/16 14:23 09/16/16 11:46 Tylenol Oral Solution - GT 650 mg Q4H PRN Administration FEVER Amino Acids 30 ml 06/28/16 10:00 09/15/16 11:34 Prostat Sugar-Free Packet - PO 30 ml DAILY K[facility]AKU Administration Amlodipine Besylate 10 mg 12/30/15 10:00 09/16/16 11:34 Norvasc - GT 10 mg DAILY K[facility]AKU Administration Bacitracin 1 applic 08/09/16 16:15 09/16/16 11:16 Bacitracin - TP 1 applic DAILY KWAKU Administration Guaifenesin 10 ml 12/29/15 10:43 08/02/16 10:38 Robitussin Dm - PO 10 ml Q6H PRN Administration COUGH Insulin Aspart 1 vial 08/28/16 22:00 09/16/16 11:46 Novolog Vial Sliding Scale - SQ 4 units ACHS KWAKU Administration Protocol Insulin Detemir 18 units 09/15/16 22:00 09/15/16 21:37 Levemir Vial SQ 18 unit HS K[facility]U Administration Lactobacillus Acidophilus 1 tab 12/30/15 10:00 09/16/16 11:15 Bacid - PO 1 tab DAILY K[facility]U Administration Lisinopril 40 mg 12/30/15 10:00 09/16/16 11:33 Prinivil GT 40 mg DAILY [facility] Administration Metoprolol Tartrate 150 mg 12/29/15 22:00 09/16/16 11:33 Lopressor - GT 150 mg BID K[facility]AKU Administration Metoprolol Tartrate 5 mg 12/29/15 10:43 Lopressor Injection - IVPB Q6H PRN HYPERTENSION Ranitidine HCl 150 mg 08/27/16 12:15 09/16/16 11:17 Zantac Oral Solution - PO 150 mg BID K[facility]AKU Administration Scopolamine HBr 1 patch 05/20/16 15:45 09/14/16 15:25 Transderm-Scop - TD 1 patch Q72H [facility]U Administration Simethicone 40 mg 08/25/16 10:00 09/16/16 11:17 Mylicon Liquid - PEG 40 mg DAILY KWAKU Administration ASSESSMENT/PLAN: Patient is a 76 year old male with a past medical history of IDDM, HTN and inguinal hernia. He presented to the emergency room on 06/27/2015 with a diverticular bleed s/p right hemicolectomy. His hospitalization was further complicated with a CVA with anoxic brain injury. He is s/p trach secondary to respiratory failure. ID: Feves/Tachycardia - acute Plan: Tachycardia and fevers of 100.1 yesterday and 101F today, unclear etiology but sacral pressure ulcers may be source No redness or drainage around PEG tube. 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 Has respiratory failure secondary to anoxic brain injury. He is on duonebs PRN, Trach collar capped - changed on 09/09/2016 Fluid/Electrolytes: Hypernatremia - acute Plan: Water flushes on tube feeds were increased to 60cc/hr for added hydration Also added 250cc water flushes BID since BUN is elevated Monitor BMP Endocrine: Diabetes - chronic Plan: BGMs in the 200s, Levemir increased to 18 units at HS capillary glucose ac/hs F.E.N. NPO Glucerna 70cc/hr with water flushes - increased water flushes to 60cc/hr for added hydration, now 250cc free water BID Prostat for treatment of pressure ulcers Prophylaxis: DVT: SCDs - both legs. No AC: contraindicated secondary to GI bleed GI Regimen: Ranitidine BID Bowel regimen: deferred, having soft stools He is bed bound and a total care Code Status: DNR Disposition: requires continued inpatient care. Visit type - Emergency Visit Emergency Visit: Yes ED Registration Date: 06/27/15 Care time: The patient presented to the Emergency Department on the above date and was hospitalized for further evaluation of their emergent condition. - New Patient This patient is new to me today: No - Critical Care Critical Care patient: No - Discharge Referral Referred to [facility] Med [facility].C.: No
--- NOTE | 2016-09-16 13:05 | CONSULT ---
Consult Consult Specialty:: infectious diseases Reason for Consultation:: fever - History of Present Illness History of Present Illness: this patient has a long history and has been in the hospital for a long time patient has been in the hospital for more than couple of months and has been treated intermittently patient is non verbal and has mental status has no response patient is on peg tube feeding and had been stable he also has a sacral decubitus which according to the primary team was spoiled with feces yesterday patients latest temp is 101.4 and has been having tachy was called in to see dylan patient because of that patient has been cxed ,and xray and urine send - History Source History Provided By: Medical Record Limitations to Obtaining History: Clinical Condition - Past Medical History COUNTRY DIRECTOR: Yes: CVA Cardio/Vascular: Yes: HTN Pulmonary: Yes: Other (past vent dependent) Gastrointestinal: Yes: GI Bleed Endocrine: Yes: Diabetes Mellitus - Past Surgical History Past Surgical History: Yes: Colectomy Additional Surgical History: s/p right hemicolectomy, tracheostomy, PEG tube placement, and IVC filter. - Alcohol/Substance Use Hx Alcohol Use: No - Smoking History Smoking history: Never smoked Have you smoked in the past 12 months: No Aproximately how many cigarettes per day: 0 Home Medications - Allergies Allergies/Adverse Reactions: Allergies Allergy/AdvReac Type Severity Reaction Status Date / Time No Known Allergies Allergy Verified 06/26/15 21:31 - Home Medications Home Medications: Ambulatory Orders Amino Acids/Protein Hydrolys [Prostat Sugar-Free Packet -] 30 ml GT DAILY packet 08/09/15 Amlodipine Besylate [Norvasc -] 10 mg GT DAILY tablet 08/09/15 Chlorhexidine Gluconate [Peridex -] 15 ml MM BID cup 08/09/15 Insulin (Levemir) [Levemir Flexpen -] 25 units SQ HS pen 08/09/15 Insulin (Novolog) [Novolog Flexpen -] 3 units SQ Q6HPO pen 08/09/15 Insulin Sliding Scale [Novolog Vial Sliding Scale -] 0 units SQ Q6HPO pen 08/09 Lisinopril [Prinivil] 20 mg GT DAILY tablet 08/09/15 Metoprolol Tartrate Injection [Lopressor Injection -] 5 mg IVPB Q6H PRN #0 vial 08/09/15 Metoprolol Tartrate [Lopressor -] 100 mg GT BID tablet 08/09/15 Ondansetron Injection [Zofran Injection] 4 mg IVPB Q6H PRN #0 vial 08/09/15 Pantoprazole Suspension [Protonix Packets For Oral Suspension -] 40 mg GT DAILY packet 08/09/15 Vancomycin Oral Solution 125 mg GT Q6HPO ml 08/09/15 Family Disease History - Family Disease History Other Family History: non-contributory Review of Systems Unable to obtain ROS, reason: unable Physical Exam Vital Signs: Vital Signs Temperature 98.9 F 09/15/16 21:00 Pulse Rate 100 H 09/16/16 06:00 Respiratory Rate 20 09/16/16 06:00 Blood Pressure 141/91 09/16/16 06:00 O2 Sat by Pulse Oximetry (%) 99 09/15/16 21:00 Constitutional: Yes: Other Eyes: Yes: Conjunctiva Clear Cardiovascular: Yes: Regular Rate and Rhythm Respiratory: Yes: Poor Air Entry Gastrointestinal: Yes: Soft, Other (peg in place) Musculoskeletal: Yes: Other Extremities: Yes: Other Wound/Incision: Yes: Other (sacral decubitus stage 4 clean surrounding) Neurological: Yes: Other Psychiatric: Yes: Other Labs: CBC, BMP 09/16/16 06:00 09/16/16 06:00 Assessment/Plan Feves/Tachycardia - acute Hypertension 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
[2016-09-16] MEDS: AMINO ACIDS/PROTEIN HYDROLYS SUGAR-FREE 30 ML PACKET PO SCH (19:02)
[2016-09-16] MEDS: CEFTRIAXONE 50 ML IVPB SCH (20:14)
[2016-09-16] MEDS: INSULIN DETEMIR 100 UNITS/ML MDV SQ SCH (21:16)
[2016-09-17] MEDS: ACETAMINOPHEN 650 MG/20.3 ML ORAL SOLUTION (CUPS) GT PRN ×2 (02:32→12:31)
[2016-09-17] MEDS: INSULIN SLIDING SCALE (NOVOLOG) 1 VIAL SQ SCH ×4 (06:03→22:03)
[2016-09-17 09:07] LABS: BASOPHIL 0.9 % (0-2.0); EOSINOPHIL 2.5 % (0-4.5); MCH 28.9 pg (25.7-33.7); MCHC 32.7 g/dl (32.0-35.9); MEAN CELL VOLUME 88.3 fl (80-96); NEUTROPHILS 69.5 % (42.8-82.8); PLATELET COUNT 123 K/MM3 (134-434); RDW 15.2 % (11.9-15.9); WHITE BLOOD COUNT 11.6 K/mm3 (4.0-10.0)
[2016-09-17 09:34] LABS: ALBUMIN 3.4 g/dl (3.4-5.0); ANION GAP 7 (8-16); BILIRUBIN,TOTAL 0.3 mg/dL (0.2-1.0); CO2 30 mmol/L (21-32); CREATININE 0.9 mg/dL (0.7-1.3); GLUCOSE,RANDOM 196 mg/dL (74-106); SGOT/AST 41 U/L (15-37); TOT PROT 8.3 g/dl (6.4-8.2)
[2016-09-17 09:59] LABS: ALK PHOS 135 U/L (45-117); SGPT/ALT 105 U/L (12-78)
[2016-09-17] MEDS: RANITIDINE HCL 150 MG/10 ML UNIT-DOSE CUP PO SCH ×2 (12:00→22:03)
[2016-09-17] MEDS: CEFTRIAXONE 50 ML IVPB SCH (12:00)
[2016-09-17] MEDS: METOPROLOL TARTRATE 50 MG TABLET (FP) GT SCH ×2 (12:01→22:03)
[2016-09-17] MEDS: BACITRACIN 15 GM TUBE TOPICAL OINTMENT TP SCH (12:01)
[2016-09-17] MEDS: LISINOPRIL 20 MG TABLET (FP) GT SCH (12:01)
[2016-09-17] MEDS: amLODIPine BESYLATE 10 MG TABLET (FP) GT SCH (12:01)
[2016-09-17] MEDS: LACTOBACILLUS ACIDOPHILUS 1 EACH TAB (FP) PO SCH (12:01)
[2016-09-17] MEDS: AMINO ACIDS/PROTEIN HYDROLYS SUGAR-FREE 30 ML PACKET PO SCH (12:02)
[2016-09-17] MEDS: SIMETHICONE 40 MG/0.6 ML BOTTLE PEG SCH (12:02)
[2016-09-17] MEDS: MULTIVIT-MINERALS 236 ML ML GT SCH (12:02)
--- NOTE | 2016-09-17 14:39 | PN ---
Physical Exam: SUBJECTIVE: Patient seen and examined. Neurologically appears at his baseline. He is non verbal at baseline. Tolerating room air. OBJECTIVE: Vital Signs Period Temp Pulse Resp BP Sys/Santiago Pulse Ox Last 24 Hr 99.2 F-102.3 F 80-119 18-20 136-147/82-91 96 GENERAL: appears comfortable, Tolerating feeds, continue feeds for now HEAD: Normal with no signs of trauma NECK: Trach removed, site is c/d/i, no redness or drainage noted. Site does not look infected LUNGS: Scattered rhonchi auscultated anteriorly HEART: Regular rate and rhythm, heart rate between 90-119 today ABDOMEN: peg tube LUQ - on Jevity feeds with water flushes - site does not look infected, no redness, no drainage NEUROLOGICAL: at baseline, opens eyes intermittently. Appears at baseline. Laboratory Results - last 24 hr 09/16/16 09/16/16 09/17/16 17:18 20:28 04:56 WBC RBC Hgb Hct MCV MCHC RDW Plt Count MPV Neutrophils % Lymphocytes % Monocytes % Eosinophils % Basophils % Sodium Potassium Chloride Carbon Dioxide Anion Gap BUN Creatinine Creat Clearance w eGFR POC Glucometer 229 251 270 Random Glucose Calcium Total Bilirubin AST ALT Alkaline Phosphatase Total Protein Albumin 09/17/16 09/17/16 09/17/16 08:45 08:45 12:11 WBC 11.6 H RBC 4.33 Hgb 12.5 Hct 38.3 MCV 88.3 MCHC 32.7 RDW 15.2 Plt Count 123 L MPV 11.0 Neutrophils % 69.5 Lymphocytes % 21.3 D Monocytes % 5.8 Eosinophils % 2.5 Basophils % 0.9 Sodium 152 H Potassium 3.7 Chloride 115 H Carbon Dioxide 30 Anion Gap 7 L BUN 31 H Creatinine 0.9 Creat Clearance w eGFR > 60 POC Glucometer 213 Random Glucose 196 H Calcium 10.0 Total Bilirubin 0.3 AST 41 H D ALT 105 H Alkaline Phosphatase 135 H Total Protein 8.3 H Albumin 3.4 Active Medications Generic Name Dose Route Start Last Admin Trade Name Freq PRN Reason Stop Dose Admin Acetaminophen 650 mg 05/26/16 14:23 09/17/16 12:31 Tylenol Oral Solution - GT 650 mg Q4H PRN Administration FEVER Amino Acids 30 ml 06/28/16 10:00 09/17/16 12:02 Prostat Sugar-Free Packet - PO 30 ml DAILY KWAKU Administration Amlodipine Besylate 10 mg 12/30/15 10:00 09/17/16 12:01 Norvasc - GT 10 mg DAILY KWAKU Administration Bacitracin 1 applic 08/09/16 16:15 09/17/16 12:01 Bacitracin - TP 1 applic DAILY KWAKU Administration Guaifenesin 10 ml 12/29/15 10:43 08/02/16 10:38 Robitussin Dm - PO 10 ml Q6H PRN Administration COUGH Ceftriaxone Sodium 50 mls @ 100 mls/hr 09/16/16 13:30 09/17/16 12:00 Rocephin 1gm Ivpb (Pre-Docked) IVPB 100 mls/hr DAILY KWAKU Administration Dextrose 500 mls @ 100 mls/hr 09/17/16 11:45 09/17/16 12:33 D5w - IV 09/17/16 16:44 100 mls/hr ONCE ONE Administration Insulin Aspart 1 vial 09/17/16 16:30 Novolog Vial Sliding Scale - SQ ACHS KWAKU Protocol Insulin Detemir 18 units 09/15/16 22:00 09/16/16 21:16 Levemir Vial SQ 18 unit HS KWAKU Administration Lactobacillus Acidophilus 1 tab 12/30/15 10:00 09/17/16 12:01 Bacid - PO 1 tab DAILY KWAKU Administration Lisinopril 40 mg 12/30/15 10:00 09/17/16 12:01 Prinivil GT 40 mg DAILY KWAKU Administration Metoprolol Tartrate 150 mg 12/29/15 22:00 09/17/16 12:01 Lopressor - GT 150 mg BID KWAKU Administration Metoprolol Tartrate 5 mg 12/29/15 10:43 Lopressor Injection - IVPB Q6H PRN HYPERTENSION Ranitidine HCl 150 mg 08/27/16 12:15 09/17/16 12:00 Zantac Oral Solution - PO 150 mg BID KWAKU Administration Scopolamine HBr 1 patch 05/20/16 15:45 09/14/16 15:25 Transderm-Scop - TD 1 patch Q72H KWAKU Administration Simethicone 40 mg 08/25/16 10:00 09/17/16 12:02 Mylicon Liquid - PEG 40 mg DAILY KWAKU Administration ASSESSMENT/PLAN: Patient is a 76 year old male with a past medical history of IDDM, HTN and inguinal hernia. He presented to the emergency room on 06/27/2015 with a diverticular bleed s/p right hemicolectomy. His hospitalization was further complicated with a CVA with anoxic brain injury. He is s/p trach secondary to respiratory failure. ID: Fevers - acute Plan: Fevers, TMax 101.8F yesterday. Tmax today at 102.3F ID following and pt started on Ceftriaxone 1 gram daily. BC, UC, Chest Xray sent. UC shows growth of Proteus Species which may be source of infection There is no drainage around the trach site, PEG tube shows no redness or discharge, another potential source may be the pressure ulcer Chest xray shows early infiltrate on the right lung base. Will watch one more day on Ceftriaxone for response. 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 Has respiratory failure secondary to anoxic brain injury. He is on duonebs PRN, Trach collar removed on 09/09/2016 - site is c/d/i. No redness, drainage. Fluid/Electrolytes: Hypernatremia - acute Plan: Water flushes on tube feeds were increased to 60cc/hr for added hydration Also added 250cc water flushes BID since BUN is elevated Dextrose 5% 500cc x 1 added for hypernatremia Monitor BMP Endocrine: Diabetes - chronic Plan: BGMs in the 200s, Levemir recently increased to 18 units at HS, but BGMs remain high Sliding scale adjusted for tighter control capillary glucose ac/hs F.E.N. NPO Glucerna 70cc/hr with water flushes - increased water flushes to 60cc/hr for added hydration, now 250cc free water BID Prostat for treatment of pressure ulcers Functional Quadraplegia Prophylaxis: DVT: SCDs - both legs. No AC: contraindicated secondary to GI bleed GI Regimen: Ranitidine BID Bowel regimen: deferred, having soft stools He is bed bound and a total care Code Status: DNR Visit type - Emergency Visit Emergency Visit: Yes ED Registration Date: 06/27/15 Care time: The patient presented to the Emergency Department on the above date and was hospitalized for further evaluation of their emergent condition. - New Patient This patient is new to me today: No - Critical Care Critical Care patient: No - Discharge Referral Referred to [facility] Med P.C.: No
[2016-09-17] MEDS: SCOPOLAMINE HYDROBROMIDE 1 PATCH PATCH.TD72 TD SCH (15:07)
--- NOTE | 2016-09-17 15:13 | PN ---
Progress Note, Physician History of Present Illness: status quo again spiked fever urine showing growth - Current Medication List Current Medications: Active Medications Acetaminophen (Tylenol Oral Solution -) 650 mg GT Q4H PRN PRN Reason: FEVER Last Admin: 09/17/16 12:31 Dose: 650 mg Amino Acids (Prostat Sugar-Free Packet -) 30 ml PO DAILY [facility] Last Admin: 09/17/16 12:02 Dose: 30 ml Amlodipine Besylate (Norvasc -) 10 mg GT DAILY [facility] Last Admin: 09/17/16 12:01 Dose: 10 mg Bacitracin (Bacitracin -) 1 applic TP DAILY [facility] Last Admin: 09/17/16 12:01 Dose: 1 applic Guaifenesin (Robitussin Dm -) 10 ml PO Q6H PRN PRN Reason: COUGH Last Admin: 08/02/16 10:38 Dose: 10 ml Ceftriaxone Sodium (Rocephin 1gm Ivpb (Pre-Docked)) 50 mls @ 100 mls/hr IVPB DAILY [facility] Last Admin: 09/17/16 12:00 Dose: 100 mls/hr Dextrose (D5w -) 500 mls @ 100 mls/hr IV ONCE ONE Stop: 09/17/16 16:44 Last Admin: 09/17/16 12:33 Dose: 100 mls/hr Insulin Aspart (Novolog Vial Sliding Scale -) 1 vial SQ ACHS [facility] PRN Reason: Protocol Insulin Detemir (Levemir Vial) 18 units SQ HS [facility] Last Admin: 09/16/16 21:16 Dose: 18 unit Lactobacillus Acidophilus (Bacid -) 1 tab PO DAILY [facility] Last Admin: 09/17/16 12:01 Dose: 1 tab Lisinopril (Prinivil) 40 mg GT DAILY [facility] Last Admin: 09/17/16 12:01 Dose: 40 mg Metoprolol Tartrate (Lopressor -) 150 mg GT BID [facility] Last Admin: 09/17/16 12:01 Dose: 150 mg Metoprolol Tartrate (Lopressor Injection -) 5 mg IVPB Q6H PRN PRN Reason: HYPERTENSION Ranitidine HCl (Zantac Oral Solution -) 150 mg PO BID [facility] Last Admin: 09/17/16 12:00 Dose: 150 mg Scopolamine HBr (Transderm-Scop -) 1 patch TD Q72H [facility] Last Admin: 09/17/16 15:07 Dose: 1 patch Simethicone (Mylicon Liquid -) 40 mg PEG DAILY [facility] Last Admin: 09/17/16 12:02 Dose: 40 mg - Objective Vital Signs: Vital Signs Temperature 102.3 F H 09/17/16 12:00 Pulse Rate 80 09/17/16 14:00 Respiratory Rate 20 09/17/16 14:00 Blood Pressure 140/85 09/17/16 14:00 O2 Sat by Pulse Oximetry (%) 96 09/16/16 20:39 Constitutional: Yes: Calm, Other Cardiovascular: Yes: Regular Rate and Rhythm Respiratory: Yes: Regular, CTA Bilaterally Gastrointestinal: Yes: Normal Bowel Sounds, Soft, Other (g tube in place) Musculoskeletal: Yes: WNL Extremities: Yes: WNL Neurological: Yes: Other Labs: CBC, BMP 09/17/16 08:45 09/17/16 08:45 INR, PTT INR 1.20 (0.82-1.09) H 08/14/16 06:00 Assessment/Plan Feves/Tachycardia - acute Hypertension 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
[2016-09-17] MEDS: INSULIN DETEMIR 100 UNITS/ML MDV SQ SCH (22:02)
[2016-09-18] MEDS: INSULIN SLIDING SCALE (NOVOLOG) 1 VIAL SQ SCH ×4 (06:30→22:52)
[2016-09-18 06:51] LABS: BASOPHIL 1.1 % (0-2.0); EOSINOPHIL 3.4 % (0-4.5); MCH 29.4 pg (25.7-33.7); MEAN PLT VOLUME 11.8 fl (7.5-11.1); NEUTROPHILS 66.9 % (42.8-82.8); PLATELET COUNT 127 K/MM3 (134-434); RDW 16.1 % (11.9-15.9); WHITE BLOOD COUNT 11.2 K/mm3 (4.0-10.0)
[2016-09-18 07:10] LABS: ALBUMIN 3.1 g/dl (3.4-5.0); ANION GAP 10 (8-16); BILIRUBIN,TOTAL 0.3 mg/dL (0.2-1.0); CALCIUM 9.3 mg/dL (8.5-10.1); CO2 27 mmol/L (21-32); GLUCOSE,RANDOM 218 mg/dL (74-106); SGOT/AST 37 U/L (15-37); SGPT/ALT 91 U/L (12-78)
[2016-09-18 07:11] LABS: ALK PHOS 127 U/L (45-117)
[2016-09-18] MEDS: LACTOBACILLUS ACIDOPHILUS 1 EACH TAB (FP) PO SCH (11:01)
[2016-09-18] MEDS: RANITIDINE HCL 150 MG/10 ML UNIT-DOSE CUP PO SCH ×2 (11:01→21:54)
[2016-09-18] MEDS: LISINOPRIL 20 MG TABLET (FP) GT SCH (11:01)
[2016-09-18] MEDS: amLODIPine BESYLATE 10 MG TABLET (FP) GT SCH (11:01)
[2016-09-18] MEDS: CEFTRIAXONE 50 ML IVPB SCH (11:01)
[2016-09-18] MEDS: METOPROLOL TARTRATE 50 MG TABLET (FP) GT SCH ×2 (11:01→21:54)
[2016-09-18] MEDS: AMINO ACIDS/PROTEIN HYDROLYS SUGAR-FREE 30 ML PACKET PO SCH (11:01)
[2016-09-18] MEDS: BACITRACIN 15 GM TUBE TOPICAL OINTMENT TP SCH (11:04)
[2016-09-18] MEDS: MULTIVIT-MINERALS 236 ML ML GT SCH (11:04)
[2016-09-18] MEDS: SIMETHICONE 40 MG/0.6 ML BOTTLE PEG SCH (11:04)
--- NOTE | 2016-09-18 14:23 | PN ---
Progress Note, Physician History of Present Illness: spiked fever again patient continues to be same high fevers - Current Medication List Current Medications: Active Medications Acetaminophen (Tylenol Oral Solution -) 650 mg GT Q4H PRN PRN Reason: FEVER Last Admin: 09/17/16 12:31 Dose: 650 mg Amino Acids (Prostat Sugar-Free Packet -) 30 ml PO DAILY [facility] Last Admin: 09/18/16 11:01 Dose: 30 ml Amlodipine Besylate (Norvasc -) 10 mg GT DAILY [facility] Last Admin: 09/18/16 11:01 Dose: 10 mg Bacitracin (Bacitracin -) 1 applic TP DAILY [facility] Last Admin: 09/18/16 11:04 Dose: 1 applic Guaifenesin (Robitussin Dm -) 10 ml PO Q6H PRN PRN Reason: COUGH Last Admin: 08/02/16 10:38 Dose: 10 ml Ceftriaxone Sodium (Rocephin 1gm Ivpb (Pre-Docked)) 50 mls @ 100 mls/hr IVPB DAILY [facility] Last Admin: 09/18/16 11:01 Dose: 100 mls/hr Insulin Aspart (Novolog Vial Sliding Scale -) 1 vial SQ ACHS [facility] PRN Reason: Protocol Last Admin: 09/18/16 12:35 Dose: 6 units Insulin Detemir (Levemir Vial) 18 units SQ HS [facility] Last Admin: 09/17/16 22:02 Dose: 18 unit Lactobacillus Acidophilus (Bacid -) 1 tab PO DAILY [facility] Last Admin: 09/18/16 11:01 Dose: 1 tab Lisinopril (Prinivil) 40 mg GT DAILY [facility] Last Admin: 09/18/16 11:01 Dose: 40 mg Metoprolol Tartrate (Lopressor -) 150 mg GT BID [facility] Last Admin: 09/18/16 11:01 Dose: 150 mg Metoprolol Tartrate (Lopressor Injection -) 5 mg IVPB Q6H PRN PRN Reason: HYPERTENSION Ranitidine HCl (Zantac Oral Solution -) 150 mg PO BID [facility] Last Admin: 09/18/16 11:01 Dose: 150 mg Scopolamine HBr (Transderm-Scop -) 1 patch TD Q72H [facility] Last Admin: 09/17/16 15:07 Dose: 1 patch Simethicone (Mylicon Liquid -) 40 mg PEG DAILY [facility] Last Admin: 09/18/16 11:04 Dose: 40 mg - Objective Vital Signs: Vital Signs Temperature 98.8 F 09/18/16 06:27 Pulse Rate 96 H 09/18/16 06:27 Respiratory Rate 20 09/18/16 06:27 Blood Pressure 126/89 09/18/16 06:27 O2 Sat by Pulse Oximetry (%) 99 09/17/16 22:00 Constitutional: Yes: No Distress, Calm Cardiovascular: Yes: Regular Rate and Rhythm Respiratory: Yes: Regular, Poor Air Entry, Rhonchi Gastrointestinal: Yes: Normal Bowel Sounds, Soft, Other (peg tube in place) Musculoskeletal: Yes: WNL Extremities: Yes: WNL Labs: CBC, BMP 09/18/16 05:35 09/18/16 05:35 INR, PTT INR 1.20 (0.82-1.09) H 08/14/16 06:00 Assessment/Plan Feves/Tachycardia - acute Hypertension 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
[2016-09-18] MEDS: PIPERACILLIN/TAZOB 3.375 GM 50 ML IVPB SCH ×2 (15:22→17:59)
--- NOTE | 2016-09-18 16:21 | PN ---
Physical Exam: SUBJECTIVE: Patient seen and examined. He is tolerating room air. Appears to be at his baseline. OBJECTIVE: GENERAL: appears comfortable, Tolerating feeds HEAD: Normal with no signs of trauma NECK: Trach removed, site is c/d/i, no redness or drainage noted. Site does not look infected LUNGS: Scattered rhonchi auscultated anteriorly HEART: Regular rate and rhythm, heart rate between 90-119 today ABDOMEN: peg tube LUQ - on Jevity feeds with water flushes - site does not look infected, no redness, no drainage NEUROLOGICAL: at baseline, opens eyes intermittently. Vital Signs Period Temp Pulse Resp BP Sys/Santiago Pulse Ox Last 24 Hr 98.8 F-101.7 F 79-96 18-20 122-127/82-89 99-99 Laboratory Results - last 24 hr 09/17/16 09/17/16 09/18/16 18:10 21:56 05:35 WBC 11.2 H RBC 4.26 Hgb 12.5 Hct 37.9 MCV 89.0 MCHC 33.0 RDW 16.1 H Plt Count 127 L MPV 11.8 H Neutrophils % 66.9 Lymphocytes % 23.7 Monocytes % 4.9 Eosinophils % 3.4 Basophils % 1.1 Sodium Potassium Chloride Carbon Dioxide Anion Gap BUN Creatinine Creat Clearance w eGFR POC Glucometer 245 192 Random Glucose Calcium Total Bilirubin AST ALT Alkaline Phosphatase Total Protein Albumin 09/18/16 09/18/16 09/18/16 05:35 05:57 12:28 WBC RBC Hgb Hct MCV MCHC RDW Plt Count MPV Neutrophils % Lymphocytes % Monocytes % Eosinophils % Basophils % Sodium 155 H Potassium 4.0 Chloride 118 H Carbon Dioxide 27 Anion Gap 10 BUN 33 H Creatinine 1.0 Creat Clearance w eGFR > 60 POC Glucometer 223 234 Random Glucose 218 H Calcium 9.3 Total Bilirubin 0.3 AST 37 ALT 91 H Alkaline Phosphatase 127 H Total Protein 8.0 Albumin 3.1 L Active Medications Generic Name Dose Route Start Last Admin Trade Name Freq PRN Reason Stop Dose Admin Acetaminophen 650 mg 05/26/16 14:23 09/17/16 12:31 Tylenol Oral Solution - GT 650 mg Q4H PRN Administration FEVER Amino Acids 30 ml 06/28/16 10:00 09/18/16 11:01 Prostat Sugar-Free Packet - PO 30 ml DAILY KWAKU Administration Amlodipine Besylate 10 mg 12/30/15 10:00 09/18/16 11:01 Norvasc - GT 10 mg DAILY KWAKU Administration Bacitracin 1 applic 08/09/16 16:15 09/18/16 11:04 Bacitracin - TP 1 applic DAILY KWAKU Administration Guaifenesin 10 ml 12/29/15 10:43 08/02/16 10:38 Robitussin Dm - PO 10 ml Q6H PRN Administration COUGH Piperacillin Sod/Tazobactam Sod 50 mls @ 100 mls/hr 09/18/16 14:30 09/18/16 15: 22 Zosyn 3.375gm Ivpb (Pre-Docked) IVPB 100 mls/hr Q8H-IV KWAKU Administration Insulin Aspart 1 vial 09/17/16 16:30 09/18/16 12:35 Novolog Vial Sliding Scale - SQ 6 units ACHS KWAKU Administration Protocol Insulin Detemir 18 units 09/15/16 22:00 09/17/16 22:02 Levemir Vial SQ 18 unit HS K[facility]AKU Administration Lactobacillus Acidophilus 1 tab 12/30/15 10:00 09/18/16 11:01 Bacid - PO 1 tab DAILY KWAKU Administration Lisinopril 40 mg 12/30/15 10:00 09/18/16 11:01 Prinivil GT 40 mg DAILY K[facility]AKU Administration Metoprolol Tartrate 150 mg 12/29/15 22:00 09/18/16 11:01 Lopressor - GT 150 mg BID KWAKU Administration Metoprolol Tartrate 5 mg 12/29/15 10:43 Lopressor Injection - IVPB Q6H PRN HYPERTENSION Ranitidine HCl 150 mg 08/27/16 12:15 09/18/16 11:01 Zantac Oral Solution - PO 150 mg BID KWAKU Administration Scopolamine HBr 1 patch 05/20/16 15:45 09/17/16 15:07 Transderm-Scop - TD 1 patch Q72H KWAKU Administration Simethicone 40 mg 08/25/16 10:00 09/18/16 11:04 Mylicon Liquid - PEG 40 mg DAILY KWAKU Administration ASSESSMENT/PLAN: Patient is a 76 year old male with a past medical history of IDDM, HTN and inguinal hernia. He presented to the emergency room on 06/27/2015 with a diverticular bleed s/p right hemicolectomy. His hospitalization was further complicated with a CVA with anoxic brain injury. He is s/p trach secondary to respiratory failure. ID: Fevers - acute Plan: Persistent fevers. TMax today 101.7 On 09/15/2016 BC, UC and Chest Xray ordered BC: no growth to date UC: + for proteus mirabilus - ESBL Chest Xray: early infiltrate on the right lung base. ID following and changed antibiotics to Zosyn q8. 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 Has respiratory failure secondary to anoxic brain injury. He is on duonebs PRN, Trach collar removed on 09/09/2016 - site is c/d/i. No redness or drainage. Fluid/Electrolytes: Hypernatremia - acute Plan: Water flushes on tube feeds were increased to 60cc/hr for added hydration Also added 250cc water flushes BID Monitor BMP Endocrine: Diabetes - chronic Plan: BGMs in the 200s, Levemir recently increased to 18 units at HS, but BGMs remain high Sliding scale adjusted for tighter control capillary glucose ac/hs F.E.N. NPO Glucerna 70cc/hr with water flushes - increased water flushes to 60cc/hr for added hydration, now 250cc free water BID Prostat for treatment of pressure ulcers Functional Quadraplegia Prophylaxis: DVT: SCDs - both legs. No AC: contraindicated secondary to GI bleed GI Regimen: Ranitidine BID Bowel regimen: deferred, having soft stools He is bed bound and a total care Code Status: Patient continues to require inpatient hospitalization. DNR Visit type - Emergency Visit Emergency Visit: Yes ED Registration Date: 06/27/15 Care time: The patient presented to the Emergency Department on the above date and was hospitalized for further evaluation of their emergent condition. - New Patient This patient is new to me today: No - Critical Care Critical Care patient: No - Discharge Referral Referred to [facility] No
[2016-09-18] MEDS: ACETAMINOPHEN 650 MG/20.3 ML ORAL SOLUTION (CUPS) GT PRN (21:54)
[2016-09-18] MEDS: INSULIN DETEMIR 100 UNITS/ML MDV SQ SCH (22:51)
[2016-09-19] MEDS: PIPERACILLIN/TAZOB 3.375 GM 50 ML IVPB SCH ×2 (01:17→11:12)
[2016-09-19] MEDS: INSULIN SLIDING SCALE (NOVOLOG) 1 VIAL SQ SCH ×4 (06:59→22:48)
[2016-09-19 07:45] LABS: BASOPHIL 0.9 % (0-2.0); EOSINOPHIL 6.1 % (0-4.5); MCH 28.4 pg (25.7-33.7); MCHC 32.2 g/dl (32.0-35.9); MEAN CELL VOLUME 88.2 fl (80-96); MEAN PLT VOLUME 12.3 fl (7.5-11.1); NEUTROPHILS 64.6 % (42.8-82.8); PLATELET COUNT 150 K/MM3 (134-434); WHITE BLOOD COUNT 9.3 K/mm3 (4.0-10.0)
[2016-09-19 08:44] LABS: ALBUMIN 3.2 g/dl (3.4-5.0); ALK PHOS 132 U/L (45-117); ANION GAP 10 (8-16); BILIRUBIN,TOTAL 0.4 mg/dL (0.2-1.0); CALCIUM 9.9 mg/dL (8.5-10.1); CO2 27 mmol/L (21-32); GLUCOSE,RANDOM 170 mg/dL (74-106); SGOT/AST 56 U/L (15-37); SGPT/ALT 104 U/L (12-78); TOT PROT 7.9 g/dl (6.4-8.2)
[2016-09-19] MEDS: amLODIPine BESYLATE 10 MG TABLET (FP) GT SCH (11:09)
[2016-09-19] MEDS: METOPROLOL TARTRATE 50 MG TABLET (FP) GT SCH ×2 (11:10→22:48)
[2016-09-19] MEDS: LISINOPRIL 20 MG TABLET (FP) GT SCH (11:10)
[2016-09-19] MEDS: LACTOBACILLUS ACIDOPHILUS 1 EACH TAB (FP) PO SCH (11:10)
[2016-09-19] MEDS: SIMETHICONE 40 MG/0.6 ML BOTTLE PEG SCH (11:11)
[2016-09-19] MEDS: BACITRACIN 15 GM TUBE TOPICAL OINTMENT TP SCH (11:12)
[2016-09-19] MEDS: MULTIVIT-MINERALS 236 ML ML GT SCH (11:12)
[2016-09-19] MEDS: RANITIDINE HCL 150 MG/10 ML UNIT-DOSE CUP PO SCH ×2 (11:12→22:48)
[2016-09-19] MEDS: AMINO ACIDS/PROTEIN HYDROLYS SUGAR-FREE 30 ML PACKET PO SCH (11:12)
--- NOTE | 2016-09-19 12:59 | PN ---
Progress Note (short form) - Note Progress Note: Subjective: The patient was seen and examined at the bedside, non-verbal. Tmax 101.6 yesterday evening Current Medications Generic Name Dose Route Start Last Admin Trade Name Freq PRN Reason Stop Dose Admin Acetaminophen 650 mg 05/26/16 14:23 09/18/16 21:54 Tylenol Oral Solution - GT 650 mg Q4H PRN Administration FEVER Amino Acids 30 ml 06/28/16 10:00 09/19/16 11:12 Prostat Sugar-Free Packet - PO 30 ml DAILY KWAKU Administration Amlodipine Besylate 10 mg 12/30/15 10:00 09/19/16 11:09 Norvasc - GT 10 mg DAILY K[facility]AKU Administration Bacitracin 1 applic 08/09/16 16:15 09/19/16 11:12 Bacitracin - TP 1 applic DAILY KWAKU Administration Guaifenesin 10 ml 12/29/15 10:43 08/02/16 10:38 Robitussin Dm - PO 10 ml Q6H PRN Administration COUGH Piperacillin Sod/Tazobactam 50 mls @ 100 mls/hr 09/19/16 18:00 Sod 3.375 gm/ Sodium Chloride IVPB Q8H-IV KWAKU Insulin Aspart 1 vial 09/17/16 16:30 09/19/16 11:59 Novolog Vial Sliding Scale - SQ 4 units ACHS KWAKU Administration Protocol Insulin Detemir 18 units 09/15/16 22:00 09/18/16 22:51 Levemir Vial SQ 18 unit HS KWAKU Administration Lactobacillus Acidophilus 1 tab 12/30/15 10:00 09/19/16 11:10 Bacid - PO 1 tab DAILY K[facility]AKU Administration Lisinopril 40 mg 12/30/15 10:00 09/19/16 11:10 Prinivil GT 40 mg DAILY KWAKU Administration Metoprolol Tartrate 150 mg 12/29/15 22:00 09/19/16 11:10 Lopressor - GT 150 mg BID KWAKU Administration Metoprolol Tartrate 5 mg 12/29/15 10:43 Lopressor Injection - IVPB Q6H PRN HYPERTENSION Ranitidine HCl 150 mg 08/27/16 12:15 09/19/16 11:12 Zantac Oral Solution - PO 150 mg BID KWAKU Administration Scopolamine HBr 1 patch 05/20/16 15:45 09/17/16 15:07 Transderm-Scop - TD 1 patch Q72H KWAKU Administration Simethicone 40 mg 08/25/16 10:00 09/19/16 11:11 Mylicon Liquid - PEG 40 mg DAILY KWAKU Administration Objective: Vital Signs Period Temp Pulse Resp BP Sys/Santiago Pulse Ox Last 24 Hr 99.0 F-101.7 F 72-108 18-20 129-140/79-87 98-100 Physical Exam: General: No acute distress HEENT: Gauze dressing across neck, c/d/i Neuro: Eye tracking to verbal stimulus Pulm: CTA anteriorly CV: RRR, S1S2 Abd: Soft, non-distended. Normoactive bowel sounds. Peg tube c/d/i Ext: Warm, well-perfused. 2+ DP/PT bilaterally Skin: Right buttock ulcers x2 CBCD WBC 9.3 K/mm3 (4.0-10.0) 09/19/16 06:00 RBC 4.26 M/mm3 (4.00-5.60) 09/19/16 06:00 Hgb 12.1 GM/dL (11.7-16.9) 09/19/16 06:00 Hct 37.5 % (35.4-49) 09/19/16 06:00 MCV 88.2 fl (80-96) 09/19/16 06:00 MCHC 32.2 g/dl (32.0-35.9) 09/19/16 06:00 RDW 16.0 % (11.9-15.9) H 09/19/16 06:00 Plt Count 150 K/MM3 (134-434) 09/19/16 06:00 MPV 12.3 fl (7.5-11.1) H 09/19/16 06:00 CMP Sodium 155 mmol/L (136-145) H 09/19/16 06:00 Potassium 3.8 mmol/L (3.5-5.1) 09/19/16 06:00 Chloride 118 mmol/L (98-107) H 09/19/16 06:00 Carbon Dioxide 27 mmol/L (21-32) 09/19/16 06:00 Anion Gap 10 (8-16) 09/19/16 06:00 BUN 34 mg/dL (7-18) H 09/19/16 06:00 Creatinine 1.0 mg/dL (0.7-1.3) 09/19/16 06:00 Creat Clearance w eGFR > 60 (>60) 09/19/16 06:00 Random Glucose 170 mg/dL (74-106) H D 09/19/16 06:00 Calcium 9.9 mg/dL (8.5-10.1) 09/19/16 06:00 Total Bilirubin 0.4 mg/dL (0.2-1.0) D 09/19/16 06:00 AST 56 U/L (15-37) H D 09/19/16 06:00 ALT 104 U/L (12-78) H 09/19/16 06:00 Alkaline Phosphatase 132 U/L (45-117) H 09/19/16 06:00 Total Protein 7.9 g/dl (6.4-8.2) 09/19/16 06:00 Albumin 3.2 g/dl (3.4-5.0) L 09/19/16 06:00 CARDIAC ENZYMES Creatine Kinase 62 IU/L (38-174) 06/28/15 09:35 Troponin I 0.07 ng/ml (0.03-0.5) D 07/09/15 05:00 Assessment: 75 year old male with PMHx of HTN, IDDM, inguinal hernia who presented to the ED with diverticular bleed s/p Righ hemicolectomy with 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 Plan: 1. ID: Fevers - Per Dr. Washington, on Zosyn for persistent fevers and possible aspiration - Urine culture with 10,000-20,000 proteus mirabilus-ESBL 2. Anoxic brain injury s/p brainstem CVAs - Mental status unchanged 3. Respiratory failure secondary to anoxic brain injury - Cont O2 via room air, NC when needed - Trach removed 09/09/16 - Duonebs PRN 4. HTN - Continue lisinopril, amlodipine, lopressor 5. Multiple pressure ulcers - Turn and position q2h 6. IDDM - Continue Levemir at 18u sq qhs - ISS BGM ACHS 7. F/E/N: - 70 ml/hr Glucerna 1.5, 65 ml/hr water flushes - Prostat daily - Continue Zantac bid 8. Prophylaxis: - SCDs bilaterally - No chemical anticoagulation 2/2 spontaneous gluteal bleed and severe GI bleed - Functional quadriplegia CODE STATUS: DNR Visit type - Emergency Visit Emergency Visit: Yes ED Registration Date: 06/27/15 Care time: The patient presented to the Emergency Department on the above date and was hospitalized for further evaluation of their emergent condition. - New Patient This patient is new to me today: No - Critical Care Critical Care patient: No
--- NOTE | 2016-09-19 13:03 | PN ---
Progress Note, Physician History of Present Illness: continues to have fevers otherwise status quo - Current Medication List Current Medications: Active Medications Acetaminophen (Tylenol Oral Solution -) 650 mg GT Q4H PRN PRN Reason: FEVER Last Admin: 09/18/16 21:54 Dose: 650 mg Amino Acids (Prostat Sugar-Free Packet -) 30 ml PO DAILY COUNTS INCLUDE 234 BEDS AT THE [facility] Last Admin: 09/19/16 11:12 Dose: 30 ml Amlodipine Besylate (Norvasc -) 10 mg GT DAILY COUNTS INCLUDE 234 BEDS AT THE [facility] Last Admin: 09/19/16 11:09 Dose: 10 mg Bacitracin (Bacitracin -) 1 applic TP DAILY COUNTS INCLUDE 234 BEDS AT THE [facility] Last Admin: 09/19/16 11:12 Dose: 1 applic Guaifenesin (Robitussin Dm -) 10 ml PO Q6H PRN PRN Reason: COUGH Last Admin: 08/02/16 10:38 Dose: 10 ml Piperacillin Sod/Tazobactam (Sod 3.375 gm/ Sodium Chloride) 50 mls @ 100 mls/ hr IVPB Q8H-IV KWAKU Insulin Aspart (Novolog Vial Sliding Scale -) 1 vial SQ ACHS KWAKU PRN Reason: Protocol Last Admin: 09/19/16 11:59 Dose: 4 units Insulin Detemir (Levemir Vial) 18 units SQ HS COUNTS INCLUDE 234 BEDS AT THE [facility] Last Admin: 09/18/16 22:51 Dose: 18 unit Lactobacillus Acidophilus (Bacid -) 1 tab PO DAILY COUNTS INCLUDE 234 BEDS AT THE [facility] Last Admin: 09/19/16 11:10 Dose: 1 tab Lisinopril (Prinivil) 40 mg GT DAILY COUNTS INCLUDE 234 BEDS AT THE [facility] Last Admin: 09/19/16 11:10 Dose: 40 mg Metoprolol Tartrate (Lopressor -) 150 mg GT BID COUNTS INCLUDE 234 BEDS AT THE [facility] Last Admin: 09/19/16 11:10 Dose: 150 mg Metoprolol Tartrate (Lopressor Injection -) 5 mg IVPB Q6H PRN PRN Reason: HYPERTENSION Ranitidine HCl (Zantac Oral Solution -) 150 mg PO BID COUNTS INCLUDE 234 BEDS AT THE [facility] Last Admin: 09/19/16 11:12 Dose: 150 mg Scopolamine HBr (Transderm-Scop -) 1 patch TD Q72H COUNTS INCLUDE 234 BEDS AT THE [facility] Last Admin: 09/17/16 15:07 Dose: 1 patch Simethicone (Mylicon Liquid -) 40 mg PEG DAILY COUNTS INCLUDE 234 BEDS AT THE [facility] Last Admin: 09/19/16 11:11 Dose: 40 mg - Objective Vital Signs: Vital Signs Temperature 99.1 F 09/19/16 06:00 Pulse Rate 72 09/19/16 11:17 Respiratory Rate 18 09/19/16 06:00 Blood Pressure 140/87 09/19/16 06:00 O2 Sat by Pulse Oximetry (%) 98 09/19/16 11:17 Constitutional: Yes: No Distress, Calm Cardiovascular: Yes: Regular Rate and Rhythm Respiratory: Yes: Poor Air Entry, Rhonchi Gastrointestinal: Yes: Soft, Other (peg tube in place) Musculoskeletal: Yes: Other Extremities: Yes: Other Neurological: Yes: Other Labs: CBC, BMP 09/19/16 06:00 09/19/16 06:00 INR, PTT INR 1.20 (0.82-1.09) H 08/14/16 06:00 Assessment/Plan Feves/Tachycardia - acute Hypertension 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
[2016-09-19] MEDS: PIPERACILLIN/TAZOB 3.375 GM 3.375 GM in SODIUM CHLORIDE 50 ML IVPB SCH (18:54)
[2016-09-19] MEDS: INSULIN DETEMIR 100 UNITS/ML MDV SQ SCH (22:47)
[2016-09-19] MEDS: ACETAMINOPHEN 650 MG/20.3 ML ORAL SOLUTION (CUPS) GT PRN (22:48)
[2016-09-20] MEDS: PIPERACILLIN/TAZOB 3.375 GM 3.375 GM in SODIUM CHLORIDE 50 ML IVPB SCH ×3 (03:53→19:01)
[2016-09-20] MEDS: ACETAMINOPHEN 650 MG/20.3 ML ORAL SOLUTION (CUPS) GT PRN ×2 (03:54→22:56)
[2016-09-20] MEDS: INSULIN SLIDING SCALE (NOVOLOG) 1 VIAL SQ SCH ×4 (06:32→23:03)
[2016-09-20 07:29] LABS: ALBUMIN 3.1 g/dl (3.4-5.0); ANION GAP 7 (8-16); BILIRUBIN,TOTAL 0.5 mg/dL (0.2-1.0); CALCIUM 9.3 mg/dL (8.5-10.1); CO2 29 mmol/L (21-32); GLUCOSE,RANDOM 168 mg/dL (74-106); SGPT/ALT 89 U/L (12-78); TOT PROT 7.8 g/dl (6.4-8.2)
[2016-09-20 07:30] LABS: ALK PHOS 101 U/L (45-117)
[2016-09-20 08:02] LABS: SGOT/AST 43 U/L (15-37)
[2016-09-20] MEDS: RANITIDINE HCL 150 MG/10 ML UNIT-DOSE CUP PO SCH ×2 (11:21→22:52)
[2016-09-20] MEDS: LACTOBACILLUS ACIDOPHILUS 1 EACH TAB (FP) PO SCH (11:21)
[2016-09-20] MEDS: amLODIPine BESYLATE 10 MG TABLET (FP) GT SCH (11:22)
[2016-09-20] MEDS: METOPROLOL TARTRATE 50 MG TABLET (FP) GT SCH ×2 (11:22→22:52)
[2016-09-20] MEDS: LISINOPRIL 20 MG TABLET (FP) GT SCH (11:22)
[2016-09-20] MEDS: BACITRACIN 15 GM TUBE TOPICAL OINTMENT TP SCH (11:22)
[2016-09-20] MEDS: MULTIVIT-MINERALS 236 ML ML GT SCH (11:23)
[2016-09-20] MEDS: SIMETHICONE 40 MG/0.6 ML BOTTLE PEG SCH (11:23)
[2016-09-20] MEDS: AMINO ACIDS/PROTEIN HYDROLYS SUGAR-FREE 30 ML PACKET PO SCH (11:24)
--- NOTE | 2016-09-20 12:07 | PN ---
Progress Note (short form) - Note Progress Note: Subjective: The patient was seen and examined at the bedside, non-verbal. Tmax 102 Cultures sent Na 157, informed RN to increase free water flushes (pump was set to 50ml/hr) Current Medications Generic Name Dose Route Start Last Admin Trade Name Freq PRN Reason Stop Dose Admin Acetaminophen 650 mg 05/26/16 14:23 09/20/16 03:54 Tylenol Oral Solution - GT 650 mg Q4H PRN Administration FEVER Amino Acids 30 ml 06/28/16 10:00 09/20/16 11:24 Prostat Sugar-Free Packet - PO 30 ml DAILY KWAKU Administration Amlodipine Besylate 10 mg 12/30/15 10:00 09/20/16 11:22 Norvasc - GT 10 mg DAILY KWAKU Administration Bacitracin 1 applic 08/09/16 16:15 09/20/16 11:22 Bacitracin - TP 1 applic DAILY KWAKU Administration Guaifenesin 10 ml 12/29/15 10:43 08/02/16 10:38 Robitussin Dm - PO 10 ml Q6H PRN Administration COUGH Piperacillin Sod/Tazobactam 50 mls @ 100 mls/hr 09/19/16 18:00 09/20/16 11:27 Sod 3.375 gm/ Sodium Chloride IVPB 100 mls/hr Q8H-IV KWAKU Administration Insulin Aspart 1 vial 09/17/16 16:30 09/20/16 06:32 Novolog Vial Sliding Scale - SQ 4 units ACHS KWAKU Administration Protocol Insulin Detemir 18 units 09/15/16 22:00 09/19/16 22:47 Levemir Vial SQ 18 unit HS KWAKU Administration Lactobacillus Acidophilus 1 tab 12/30/15 10:00 09/20/16 11:21 Bacid - PO 1 tab DAILY KWAKU Administration Lisinopril 40 mg 12/30/15 10:00 09/20/16 11:22 Prinivil GT 40 mg DAILY KWAKU Administration Metoprolol Tartrate 150 mg 12/29/15 22:00 09/20/16 11:22 Lopressor - GT 150 mg BID KWAKU Administration Metoprolol Tartrate 5 mg 12/29/15 10:43 Lopressor Injection - IVPB Q6H PRN HYPERTENSION Ranitidine HCl 150 mg 08/27/16 12:15 09/20/16 11:21 Zantac Oral Solution - PO 150 mg BID KWAKU Administration Scopolamine HBr 1 patch 05/20/16 15:45 09/17/16 15:07 Transderm-Scop - TD 1 patch Q72H KWAKU Administration Simethicone 40 mg 08/25/16 10:00 09/20/16 11:23 Mylicon Liquid - PEG 40 mg DAILY KWAKU Administration Objective: Vital Signs Period Temp Pulse Resp BP Sys/Santiago Pulse Ox Last 24 Hr 99.3 F-102.0 F 71-103 18-20 121-136/73-84 98-98 Physical Exam: General: No acute distress HEENT: Gauze dressing across neck, c/d/i Neuro: Eye tracking to verbal stimulus Pulm: CTA anteriorly CV: RRR, S1S2 Abd: Soft, non-distended. Normoactive bowel sounds. Peg tube c/d/i Ext: Warm, well-perfused. 2+ DP/PT bilaterally Skin: Right buttock ulcers x2 CBCD WBC 9.3 K/mm3 (4.0-10.0) 09/19/16 06:00 RBC 4.26 M/mm3 (4.00-5.60) 09/19/16 06:00 Hgb 12.1 GM/dL (11.7-16.9) 09/19/16 06:00 Hct 37.5 % (35.4-49) 09/19/16 06:00 MCV 88.2 fl (80-96) 09/19/16 06:00 MCHC 32.2 g/dl (32.0-35.9) 09/19/16 06:00 RDW 16.0 % (11.9-15.9) H 09/19/16 06:00 Plt Count 150 K/MM3 (134-434) 09/19/16 06:00 MPV 12.3 fl (7.5-11.1) H 09/19/16 06:00 CMP Sodium 157 mmol/L (136-145) H 09/20/16 05:45 Potassium 4.1 mmol/L (3.5-5.1) 09/20/16 05:45 Chloride 121 mmol/L (98-107) H 09/20/16 05:45 Carbon Dioxide 29 mmol/L (21-32) 09/20/16 05:45 Anion Gap 7 (8-16) L 09/20/16 05:45 BUN 30 mg/dL (7-18) H 09/20/16 05:45 Creatinine 1.0 mg/dL (0.7-1.3) 09/20/16 05:45 Creat Clearance w eGFR > 60 (>60) 09/20/16 05:45 Random Glucose 168 mg/dL (74-106) H 09/20/16 05:45 Calcium 9.3 mg/dL (8.5-10.1) 09/20/16 05:45 Total Bilirubin 0.5 mg/dL (0.2-1.0) D 09/20/16 05:45 AST 43 U/L (15-37) H D 09/20/16 05:45 ALT 89 U/L (12-78) H 09/20/16 05:45 Alkaline Phosphatase 101 U/L (45-117) D 09/20/16 05:45 Total Protein 7.8 g/dl (6.4-8.2) 09/20/16 05:45 Albumin 3.1 g/dl (3.4-5.0) L 09/20/16 05:45 CARDIAC ENZYMES Creatine Kinase 62 IU/L (38-174) 06/28/15 09:35 Troponin I 0.07 ng/ml (0.03-0.5) D 07/09/15 05:00 Assessment: 75 year old male with PMHx of HTN, IDDM, inguinal hernia who presented to the ED with diverticular bleed s/p Righ hemicolectomy with 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 Plan: 1. ID: Fevers - Per Dr. Washington, on Zosyn for persistent fevers and possible aspiration - Urine culture with 10,000-20,000 proteus mirabilus-ESBL 2. Anoxic brain injury s/p brainstem CVAs - Mental status unchanged 3. Respiratory failure secondary to anoxic brain injury - Cont O2 via room air, NC when needed - Trach removed 09/09/16 - Duonebs PRN 4. HTN - Continue lisinopril, amlodipine, lopressor 5. Multiple pressure ulcers - Turn and position q2h 6. IDDM - Continue Levemir at 18u sq qhs - ISS BGM ACHS 7. F/E/N: - 70 ml/hr Glucerna 1.5, 65 ml/hr water flushes - Prostat daily - Continue Zantac bid 8. Prophylaxis: - SCDs bilaterally (lower extremity doppler negative for DVTs 09/20/16) - No chemical anticoagulation 2/2 spontaneous gluteal bleed and severe GI bleed - Functional quadriplegia CODE STATUS: DNR Visit type - Emergency Visit Emergency Visit: Yes ED Registration Date: 06/27/15 Care time: The patient presented to the Emergency Department on the above date and was hospitalized for further evaluation of their emergent condition. - New Patient This patient is new to me today: No - Critical Care Critical Care patient: No
--- NOTE | 2016-09-20 15:22 | PN ---
Progress Note, Physician History of Present Illness: patient still spiking fever wbc has come to normal range - Current Medication List Current Medications: Active Medications Acetaminophen (Tylenol Oral Solution -) 650 mg GT Q4H PRN PRN Reason: FEVER Last Admin: 09/20/16 03:54 Dose: 650 mg Amino Acids (Prostat Sugar-Free Packet -) 30 ml PO DAILY [facility] Last Admin: 09/20/16 11:24 Dose: 30 ml Amlodipine Besylate (Norvasc -) 10 mg GT DAILY [facility] Last Admin: 09/20/16 11:22 Dose: 10 mg Bacitracin (Bacitracin -) 1 applic TP DAILY [facility] Last Admin: 09/20/16 11:22 Dose: 1 applic Guaifenesin (Robitussin Dm -) 10 ml PO Q6H PRN PRN Reason: COUGH Last Admin: 08/02/16 10:38 Dose: 10 ml Piperacillin Sod/Tazobactam (Sod 3.375 gm/ Sodium Chloride) 50 mls @ 100 mls/ hr IVPB Q8H-IV [facility] Last Admin: 09/20/16 11:27 Dose: 100 mls/hr Insulin Aspart (Novolog Vial Sliding Scale -) 1 vial SQ ACHS KWAKU PRN Reason: Protocol Last Admin: 09/20/16 13:49 Dose: 4 units Insulin Detemir (Levemir Vial) 18 units SQ HS [facility] Last Admin: 09/19/16 22:47 Dose: 18 unit Lactobacillus Acidophilus (Bacid -) 1 tab PO DAILY [facility] Last Admin: 09/20/16 11:21 Dose: 1 tab Lisinopril (Prinivil) 40 mg GT DAILY [facility] Last Admin: 09/20/16 11:22 Dose: 40 mg Metoprolol Tartrate (Lopressor -) 150 mg GT BID [facility] Last Admin: 09/20/16 11:22 Dose: 150 mg Metoprolol Tartrate (Lopressor Injection -) 5 mg IVPB Q6H PRN PRN Reason: HYPERTENSION Ranitidine HCl (Zantac Oral Solution -) 150 mg PO BID [facility] Last Admin: 09/20/16 11:21 Dose: 150 mg Scopolamine HBr (Transderm-Scop -) 1 patch TD Q72H [facility] Last Admin: 09/17/16 15:07 Dose: 1 patch Simethicone (Mylicon Liquid -) 40 mg PEG DAILY [facility] Last Admin: 09/20/16 11:23 Dose: 40 mg - Objective Vital Signs: Vital Signs Temperature 101.3 F H 09/20/16 11:00 Pulse Rate 92 H 09/20/16 11:00 Respiratory Rate 18 09/20/16 11:00 Blood Pressure 131/84 09/20/16 11:00 O2 Sat by Pulse Oximetry (%) 98 09/19/16 21:00 Constitutional: Yes: Calm Cardiovascular: Yes: Regular Rate and Rhythm Respiratory: Yes: Poor Air Entry, Rhonchi Gastrointestinal: Yes: Normal Bowel Sounds, Soft Musculoskeletal: Yes: Other Extremities: Yes: Other Neurological: Yes: Other Labs: CBC, BMP 09/19/16 06:00 09/20/16 05:45 INR, PTT INR 1.20 (0.82-1.09) H 08/14/16 06:00 Assessment/Plan Feves/Tachycardia - acute Hypertension 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
[2016-09-20 18:04] LABS: URINE APPEARANCE CLEAR; URINE BILIRUBIN NEGATIVE (NEGATIVE); URINE BLOOD NEGATIVE (NEGATIVE); URINE COLOR YELLOW; URINE GLUCOSE (UA) NEGATIVE (NEGATIVE); URINE KETONE NEGATIVE (NEGATIVE); URINE LEUK ESTERASE NEGATIVE (NEGATIVE); URINE NITRITE NEGATIVE (NEGATIVE); URINE PROTEIN NEGATIVE (NEGATIVE); URINE UROBILINOGEN NEGATIVE E.U./dl (0.2-1.0)
[2016-09-20] MEDS: SCOPOLAMINE HYDROBROMIDE 1 PATCH PATCH.TD72 TD SCH (19:02)
[2016-09-20] MEDS: INSULIN DETEMIR 100 UNITS/ML MDV SQ SCH (22:52)
[2016-09-21] MEDS: PIPERACILLIN/TAZOB 3.375 GM 3.375 GM in SODIUM CHLORIDE 50 ML IVPB SCH ×3 (01:58→17:19)
[2016-09-21] MEDS: INSULIN SLIDING SCALE (NOVOLOG) 1 VIAL SQ SCH ×4 (06:41→22:00)
[2016-09-21] MEDS: LACTOBACILLUS ACIDOPHILUS 1 EACH TAB (FP) PO SCH (09:35)
[2016-09-21] MEDS: RANITIDINE HCL 150 MG/10 ML UNIT-DOSE CUP PO SCH ×2 (09:35→22:00)
[2016-09-21] MEDS: SIMETHICONE 40 MG/0.6 ML BOTTLE PEG SCH (09:36)
[2016-09-21] MEDS: BACITRACIN 15 GM TUBE TOPICAL OINTMENT TP SCH (09:36)
[2016-09-21] MEDS: MULTIVIT-MINERALS 236 ML ML GT SCH (09:36)
[2016-09-21] MEDS: AMINO ACIDS/PROTEIN HYDROLYS SUGAR-FREE 30 ML PACKET PO SCH (09:37)
[2016-09-21] MEDS: amLODIPine BESYLATE 10 MG TABLET (FP) GT SCH (09:41)
[2016-09-21] MEDS: LISINOPRIL 20 MG TABLET (FP) GT SCH (09:41)
[2016-09-21] MEDS: METOPROLOL TARTRATE 50 MG TABLET (FP) GT SCH ×2 (09:41→22:00)
[2016-09-21] MEDS: ACETAMINOPHEN 650 MG/20.3 ML ORAL SOLUTION (CUPS) GT PRN ×2 (12:21→17:19)
--- NOTE | 2016-09-21 13:01 | PN ---
Progress Note (short form) - Note Progress Note: Subjective: The patient was seen and examined at the bedside, non-verbal. Tmax 101.4, cultures sent yesterday Informed by nurse patient has diarrhea, will send stool studies Current Medications Generic Name Dose Route Start Last Admin Trade Name Freq PRN Reason Stop Dose Admin Acetaminophen 650 mg 05/26/16 14:23 09/21/16 12:21 Tylenol Oral Solution - GT 650 mg Q4H PRN Administration FEVER Amino Acids 30 ml 06/28/16 10:00 09/21/16 09:37 Prostat Sugar-Free Packet - PO 30 ml DAILY [facility]U Administration Amlodipine Besylate 10 mg 12/30/15 10:00 09/21/16 09:41 Norvasc - GT 10 mg DAILY KWAKU Administration Bacitracin 1 applic 08/09/16 16:15 09/21/16 09:36 Bacitracin - TP 1 applic DAILY KWAKU Administration Guaifenesin 10 ml 12/29/15 10:43 08/02/16 10:38 Robitussin Dm - PO 10 ml Q6H PRN Administration COUGH Piperacillin Sod/Tazobactam 50 mls @ 100 mls/hr 09/19/16 18:00 09/21/16 09:35 Sod 3.375 gm/ Sodium Chloride IVPB 100 mls/hr Q8H-IV [facility]AKU Administration Insulin Aspart 1 vial 09/17/16 16:30 09/21/16 12:25 Novolog Vial Sliding Scale - SQ 4 units ACHS KWAKU Administration Protocol Insulin Detemir 18 units 09/15/16 22:00 09/20/16 22:52 Levemir Vial SQ 18 unit HS KWAKU Administration Lactobacillus Acidophilus 1 tab 12/30/15 10:00 09/21/16 09:35 Bacid - PO 1 tab DAILY KWAKU Administration Lisinopril 40 mg 12/30/15 10:00 09/21/16 09:41 Prinivil GT 40 mg DAILY K[facility]AKU Administration Metoprolol Tartrate 150 mg 12/29/15 22:00 09/21/16 09:41 Lopressor - GT 150 mg BID KWAKU Administration Metoprolol Tartrate 5 mg 12/29/15 10:43 Lopressor Injection - IVPB Q6H PRN HYPERTENSION Ranitidine HCl 150 mg 08/27/16 12:15 09/21/16 09:35 Zantac Oral Solution - PO 150 mg BID KWAKU Administration Scopolamine HBr 1 patch 05/20/16 15:45 09/20/16 19:02 Transderm-Scop - TD 1 patch Q72H KWAKU Administration Simethicone 40 mg 08/25/16 10:00 09/21/16 09:36 Mylicon Liquid - PEG 40 mg DAILY KWAKU Administration Objective: Vital Signs Period Temp Pulse Resp BP Sys/Santiago Pulse Ox Last 24 Hr 99.8 F-101.6 F 80-97 17-20 126-139/78-94 97 Physical Exam: General: No acute distress HEENT: Gauze dressing across neck, c/d/i Neuro: Eye tracking to verbal stimulus Pulm: CTA anteriorly CV: RRR, S1S2 Abd: Soft, non-distended. Normoactive bowel sounds. Peg tube c/d/i Ext: Warm, well-perfused. 2+ DP/PT bilaterally Skin: Right buttock ulcers x2 CBCD WBC 9.3 K/mm3 (4.0-10.0) 09/19/16 06:00 RBC 4.26 M/mm3 (4.00-5.60) 09/19/16 06:00 Hgb 12.1 GM/dL (11.7-16.9) 09/19/16 06:00 Hct 37.5 % (35.4-49) 09/19/16 06:00 MCV 88.2 fl (80-96) 09/19/16 06:00 MCHC 32.2 g/dl (32.0-35.9) 09/19/16 06:00 RDW 16.0 % (11.9-15.9) H 09/19/16 06:00 Plt Count 150 K/MM3 (134-434) 09/19/16 06:00 MPV 12.3 fl (7.5-11.1) H 09/19/16 06:00 CMP Sodium 157 mmol/L (136-145) H 09/20/16 05:45 Potassium 4.1 mmol/L (3.5-5.1) 09/20/16 05:45 Chloride 121 mmol/L (98-107) H 09/20/16 05:45 Carbon Dioxide 29 mmol/L (21-32) 09/20/16 05:45 Anion Gap 7 (8-16) L 09/20/16 05:45 BUN 30 mg/dL (7-18) H 09/20/16 05:45 Creatinine 1.0 mg/dL (0.7-1.3) 09/20/16 05:45 Creat Clearance w eGFR > 60 (>60) 09/20/16 05:45 Random Glucose 168 mg/dL (74-106) H 09/20/16 05:45 Calcium 9.3 mg/dL (8.5-10.1) 09/20/16 05:45 Total Bilirubin 0.5 mg/dL (0.2-1.0) D 09/20/16 05:45 AST 43 U/L (15-37) H D 09/20/16 05:45 ALT 89 U/L (12-78) H 09/20/16 05:45 Alkaline Phosphatase 101 U/L (45-117) D 09/20/16 05:45 Total Protein 7.8 g/dl (6.4-8.2) 09/20/16 05:45 Albumin 3.1 g/dl (3.4-5.0) L 09/20/16 05:45 CARDIAC ENZYMES Creatine Kinase 62 IU/L (38-174) 06/28/15 09:35 Troponin I 0.07 ng/ml (0.03-0.5) D 07/09/15 05:00 Microbiology 09/15/16 21:00 Blood - Peripheral Venous Blood Culture - Final NO GROWTH AFTER 5 DAYS INCUBATION 09/15/16 21:00 Blood - Peripheral Venous Blood Culture - Final NO GROWTH AFTER 5 DAYS INCUBATION 09/15/16 21:50 Urine - Urine Clean Catch Urine Culture - Final Proteus Mirabilus - Esbl Produ Assessment: 75 year old male with PMHx of HTN, IDDM, inguinal hernia who presented to the ED with diverticular bleed s/p Righ hemicolectomy with 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 Plan: 1. ID: Fevers - Per Dr. [place], on Zosyn for persistent fevers and possible aspiration - Send stool studies for diarrhea - Urine culture with 10,000-20,000 proteus mirabilus-ESBL 2. Anoxic brain injury s/p brainstem CVAs - Mental status unchanged 3. Respiratory failure secondary to anoxic brain injury - Cont O2 via room air, NC when needed - Trach removed 09/09/16 - Duonebs PRN 4. HTN - Continue lisinopril, amlodipine, lopressor 5. Multiple pressure ulcers - Turn and position q2h 6. IDDM - Continue Levemir at 18u sq qhs - ISS BGM ACHS 7. F/E/N: - 70 ml/hr Glucerna 1.5, 65 ml/hr water flushes - Prostat daily - Continue Zantac bid 8. Prophylaxis: - SCDs bilaterally (lower extremity doppler negative for DVTs 09/20/16) - No chemical anticoagulation 2/2 spontaneous gluteal bleed and severe GI bleed - Functional quadriplegia CODE STATUS: DNR Visit type - Emergency Visit Emergency Visit: Yes ED Registration Date: 06/27/15 Care time: The patient presented to the Emergency Department on the above date and was hospitalized for further evaluation of their emergent condition. - New Patient This patient is new to me today: No - Critical Care Critical Care patient: No
[2016-09-21 13:56] LABS: CALCIUM 9.6 mg/dL (8.5-10.1)
--- NOTE | 2016-09-21 15:24 | PN ---
Progress Note, Physician History of Present Illness: patient still spiking fever loose stools - Current Medication List Current Medications: Active Medications Acetaminophen (Tylenol Oral Solution -) 650 mg GT Q4H PRN PRN Reason: FEVER Last Admin: 09/21/16 12:21 Dose: 650 mg Amino Acids (Prostat Sugar-Free Packet -) 30 ml PO DAILY [facility] Last Admin: 09/21/16 09:37 Dose: 30 ml Amlodipine Besylate (Norvasc -) 10 mg GT DAILY [facility] Last Admin: 09/21/16 09:41 Dose: 10 mg Bacitracin (Bacitracin -) 1 applic TP DAILY [facility] Last Admin: 09/21/16 09:36 Dose: 1 applic Guaifenesin (Robitussin Dm -) 10 ml PO Q6H PRN PRN Reason: COUGH Last Admin: 08/02/16 10:38 Dose: 10 ml Piperacillin Sod/Tazobactam (Sod 3.375 gm/ Sodium Chloride) 50 mls @ 100 mls/ hr IVPB Q8H-IV [facility] Last Admin: 09/21/16 09:35 Dose: 100 mls/hr Insulin Aspart (Novolog Vial Sliding Scale -) 1 vial SQ ACHS [facility] PRN Reason: Protocol Last Admin: 09/21/16 12:25 Dose: 4 units Insulin Detemir (Levemir Vial) 20 units SQ HS [facility] Lactobacillus Acidophilus (Bacid -) 1 tab PO DAILY [facility] Last Admin: 09/21/16 09:35 Dose: 1 tab Lisinopril (Prinivil) 40 mg GT DAILY [facility] Last Admin: 09/21/16 09:41 Dose: 40 mg Metoprolol Tartrate (Lopressor -) 150 mg GT BID [facility] Last Admin: 09/21/16 09:41 Dose: 150 mg Metoprolol Tartrate (Lopressor Injection -) 5 mg IVPB Q6H PRN PRN Reason: HYPERTENSION Ranitidine HCl (Zantac Oral Solution -) 150 mg PO BID [facility] Last Admin: 09/21/16 09:35 Dose: 150 mg Scopolamine HBr (Transderm-Scop -) 1 patch TD Q72H [facility] Last Admin: 09/20/16 19:02 Dose: 1 patch Simethicone (Mylicon Liquid -) 40 mg PEG DAILY [facility] Last Admin: 09/21/16 09:36 Dose: 40 mg - Objective Vital Signs: Vital Signs Temperature 101.6 F H 09/21/16 14:00 Pulse Rate 80 09/21/16 14:00 Respiratory Rate 18 09/21/16 14:00 Blood Pressure 111/74 09/21/16 14:00 O2 Sat by Pulse Oximetry (%) 96 09/21/16 09:00 Constitutional: Yes: No Distress, Calm Respiratory: Yes: Regular, Poor Air Entry Gastrointestinal: Yes: Normal Bowel Sounds, Soft Musculoskeletal: Yes: Other Extremities: Yes: Other Psychiatric: Yes: Other Labs: CBC, BMP 09/19/16 06:00 09/21/16 13:26 INR, PTT INR 1.20 (0.82-1.09) H 08/14/16 06:00 Assessment/Plan Feves/Tachycardia - acute Hypertension Anoxic brain injury s/p brainstem CVAs - chronic Respiratory Failure - chronic Hypernatremia Diabetes uti plan blood cx prelim negative stool for cdiff can stop abx and watch repeat wbc
[2016-09-21] MEDS: INSULIN DETEMIR 100 UNITS/ML MDV SQ SCH (22:00)
[2016-09-22] MEDS: PIPERACILLIN/TAZOB 3.375 GM 3.375 GM in SODIUM CHLORIDE 50 ML IVPB SCH ×3 (01:56→17:29)
[2016-09-22] MEDS: INSULIN SLIDING SCALE (NOVOLOG) 1 VIAL SQ SCH ×4 (06:13→23:17)
[2016-09-22 07:25] LABS: MCH 29.6 pg (25.7-33.7); MCHC 33.3 g/dl (32.0-35.9); MEAN CELL VOLUME 88.8 fl (80-96); MEAN PLT VOLUME 11.4 fl (7.5-11.1); PLATELET COUNT 117 K/MM3 (134-434); RDW 16.6 % (11.9-15.9); WHITE BLOOD COUNT 5.8 K/mm3 (4.0-10.0)
[2016-09-22 08:00] LABS: CALCIUM 9.3 mg/dL (8.5-10.1); CREATININE 0.9 mg/dL (0.7-1.3)
--- NOTE | 2016-09-22 08:48 | PN ---
Progress Note (short form) - Note Progress Note: Subjective: The patient was seen and examined at the bedside, non-verbal. Tmax 101.6 Still with diarrhea, f/u stool cultures Current Medications Generic Name Dose Route Start Last Admin Trade Name Freq PRN Reason Stop Dose Admin Acetaminophen 650 mg 05/26/16 14:23 09/21/16 17:19 Tylenol Oral Solution - GT 650 mg Q4H PRN Administration FEVER Amino Acids 30 ml 06/28/16 10:00 09/21/16 09:37 Prostat Sugar-Free Packet - PO 30 ml DAILY [facility]U Administration Amlodipine Besylate 10 mg 12/30/15 10:00 09/21/16 09:41 Norvasc - GT 10 mg DAILY [facility]U Administration Bacitracin 1 applic 08/09/16 16:15 09/21/16 09:36 Bacitracin - TP 1 applic DAILY KWAKU Administration Guaifenesin 10 ml 12/29/15 10:43 08/02/16 10:38 Robitussin Dm - PO 10 ml Q6H PRN Administration COUGH Piperacillin Sod/Tazobactam 50 mls @ 100 mls/hr 09/19/16 18:00 09/22/16 01:56 Sod 3.375 gm/ Sodium Chloride IVPB 100 mls/hr Q8H-IV [facility]U Administration Insulin Aspart 1 vial 09/17/16 16:30 09/22/16 06:13 Novolog Vial Sliding Scale - SQ 4 units ACHS KWAKU Administration Protocol Insulin Detemir 20 units 09/21/16 13:25 09/21/16 22:00 Levemir Vial SQ 20 units HS KWAKU Administration Lactobacillus Acidophilus 1 tab 12/30/15 10:00 09/21/16 09:35 Bacid - PO 1 tab DAILY KWAKU Administration Lisinopril 40 mg 12/30/15 10:00 09/21/16 09:41 Prinivil GT 40 mg DAILY KWAKU Administration Metoprolol Tartrate 150 mg 12/29/15 22:00 09/21/16 22:00 Lopressor - GT 150 mg BID KWAKU Administration Metoprolol Tartrate 5 mg 12/29/15 10:43 Lopressor Injection - IVPB Q6H PRN HYPERTENSION Ranitidine HCl 150 mg 08/27/16 12:15 09/21/16 22:00 Zantac Oral Solution - PO 150 mg BID KWAKU Administration Scopolamine HBr 1 patch 05/20/16 15:45 09/20/16 19:02 Transderm-Scop - TD 1 patch Q72H KWAKU Administration Simethicone 40 mg 08/25/16 10:00 09/21/16 09:36 Mylicon Liquid - PEG 40 mg DAILY KWAKU Administration Objective: Vital Signs Period Temp Pulse Resp BP Sys/Santiago Pulse Ox Last 24 Hr 98.9 F-101.6 F 80-99 16-18 111-130/74-89 96-98 Physical Exam: General: No acute distress HEENT: Gauze dressing to anterior neck, c/d/i Neuro: Eye tracking to verbal stimulus Pulm: CTA anteriorly CV: RRR, S1S2 Abd: Soft, non-distended. Normoactive bowel sounds. Peg tube c/d/i Ext: Warm, well-perfused. 2+ DP/PT bilaterally Skin: Right buttock ulcers x2 CBCD WBC 5.8 K/mm3 (4.0-10.0) D 09/22/16 06:00 RBC 3.83 M/mm3 (4.00-5.60) L 09/22/16 06:00 Hgb 11.3 GM/dL (11.7-16.9) L 09/22/16 06:00 Hct 34.0 % (35.4-49) L 09/22/16 06:00 MCV 88.8 fl (80-96) 09/22/16 06:00 MCHC 33.3 g/dl (32.0-35.9) 09/22/16 06:00 RDW 16.6 % (11.9-15.9) H 09/22/16 06:00 Plt Count 117 K/MM3 (134-434) L D 09/22/16 06:00 MPV 11.4 fl (7.5-11.1) H 09/22/16 06:00 CMP Sodium 154 mmol/L (136-145) H 09/22/16 06:00 Potassium 3.7 mmol/L (3.5-5.1) 09/22/16 06:00 Chloride 120 mmol/L (98-107) H 09/22/16 06:00 Carbon Dioxide 26 mmol/L (21-32) 09/22/16 06:00 Anion Gap 8 (8-16) 09/22/16 06:00 BUN 26 mg/dL (7-18) H 09/22/16 06:00 Creatinine 0.9 mg/dL (0.7-1.3) 09/22/16 06:00 Creat Clearance w eGFR > 60 (>60) 09/20/16 05:45 Random Glucose 184 mg/dL (74-106) H 09/22/16 06:00 Calcium 9.3 mg/dL (8.5-10.1) 09/22/16 06:00 Total Bilirubin 0.5 mg/dL (0.2-1.0) D 09/20/16 05:45 AST 43 U/L (15-37) H D 09/20/16 05:45 ALT 89 U/L (12-78) H 09/20/16 05:45 Alkaline Phosphatase 101 U/L (45-117) D 09/20/16 05:45 Total Protein 7.8 g/dl (6.4-8.2) 09/20/16 05:45 Albumin 3.1 g/dl (3.4-5.0) L 09/20/16 05:45 CARDIAC ENZYMES Creatine Kinase 62 IU/L (38-174) 06/28/15 09:35 Troponin I 0.07 ng/ml (0.03-0.5) D 07/09/15 05:00 Microbiology 09/15/16 21:00 Blood - Peripheral Venous Blood Culture - Final NO GROWTH AFTER 5 DAYS INCUBATION 09/15/16 21:00 Blood - Peripheral Venous Blood Culture - Final NO GROWTH AFTER 5 DAYS INCUBATION 09/15/16 21:50 Urine - Urine Clean Catch Urine Culture - Final Proteus Mirabilus - Esbl Produ Assessment: 75 year old male with PMHx of HTN, IDDM, inguinal hernia who presented to the ED with diverticular bleed s/p Righ hemicolectomy with 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 Plan: 1. ID: Fevers, diarrhea - Per ID, abx stopped yesterday - Stool studies sent yesterday - C.diff still pending collection (informed RN) - Urine culture with 10,000-20,000 proteus mirabilus-ESBL 2. Anoxic brain injury s/p brainstem CVAs - Mental status unchanged 3. Respiratory failure secondary to anoxic brain injury - Cont O2 via room air, NC when needed - Trach removed 09/09/16 - Duonebs PRN 4. HTN - Continue lisinopril, amlodipine, lopressor 5. Multiple pressure ulcers - Turn and position q2h 6. IDDM - Continue Levemir at 18u sq qhs - ISS BGM ACHS 7. F/E/N: - 70 ml/hr Glucerna 1.5, 65 ml/hr water flushes - Prostat daily - Continue Zantac bid 8. Prophylaxis: - SCDs bilaterally (lower extremity doppler negative for DVTs 09/20/16) - No chemical anticoagulation 2/2 spontaneous gluteal bleed and severe GI bleed - Functional quadriplegia CODE STATUS: DNR Visit type - Emergency Visit Emergency Visit: Yes ED Registration Date: 06/27/15 Care time: The patient presented to the Emergency Department on the above date and was hospitalized for further evaluation of their emergent condition. - New Patient This patient is new to me today: No - Critical Care Critical Care patient: No
[2016-09-22] MEDS: LISINOPRIL 20 MG TABLET (FP) GT SCH (10:30)
[2016-09-22] MEDS: amLODIPine BESYLATE 10 MG TABLET (FP) GT SCH (10:30)
[2016-09-22] MEDS: METOPROLOL TARTRATE 50 MG TABLET (FP) GT SCH ×2 (10:30→23:11)
[2016-09-22] MEDS: SIMETHICONE 40 MG/0.6 ML BOTTLE PEG SCH (10:31)
[2016-09-22] MEDS: LACTOBACILLUS ACIDOPHILUS 1 EACH TAB (FP) PO SCH (10:31)
[2016-09-22] MEDS: MULTIVIT-MINERALS 236 ML ML GT SCH (10:31)
[2016-09-22] MEDS: AMINO ACIDS/PROTEIN HYDROLYS SUGAR-FREE 30 ML PACKET PO SCH (10:33)
[2016-09-22] MEDS: BACITRACIN 15 GM TUBE TOPICAL OINTMENT TP SCH (10:33)
[2016-09-22] MEDS: RANITIDINE HCL 150 MG/10 ML UNIT-DOSE CUP PO SCH ×2 (10:34→23:12)
[2016-09-22] MEDS: ACETAMINOPHEN 650 MG/20.3 ML ORAL SOLUTION (CUPS) GT PRN (17:29)
[2016-09-22] MEDS: INSULIN DETEMIR 100 UNITS/ML MDV SQ SCH (23:14)
[2016-09-23] MEDS: PIPERACILLIN/TAZOB 3.375 GM 3.375 GM in SODIUM CHLORIDE 50 ML IVPB SCH ×2 (01:13→12:03)
[2016-09-23] MEDS: ACETAMINOPHEN 650 MG/20.3 ML ORAL SOLUTION (CUPS) GT PRN (01:53)
[2016-09-23] MEDS: INSULIN SLIDING SCALE (NOVOLOG) 1 VIAL SQ SCH ×4 (06:29→23:42)
[2016-09-23 07:42] LABS: MCH 29.3 pg (25.7-33.7); MCHC 33.1 g/dl (32.0-35.9); MEAN CELL VOLUME 88.4 fl (80-96); MEAN PLT VOLUME 11.1 fl (7.5-11.1); PLATELET COUNT 111 K/MM3 (134-434); RDW 16.4 % (11.9-15.9); WHITE BLOOD COUNT 5.1 K/mm3 (4.0-10.0)
[2016-09-23 08:13] LABS: CALCIUM 9.4 mg/dL (8.5-10.1); CREATININE 0.8 mg/dL (0.7-1.3)
[2016-09-23] MEDS: METOPROLOL TARTRATE 50 MG TABLET (FP) GT SCH ×2 (12:01→23:34)
[2016-09-23] MEDS: LISINOPRIL 20 MG TABLET (FP) GT SCH (12:01)
[2016-09-23] MEDS: LACTOBACILLUS ACIDOPHILUS 1 EACH TAB (FP) PO SCH (12:02)
[2016-09-23] MEDS: amLODIPine BESYLATE 10 MG TABLET (FP) GT SCH (12:02)
[2016-09-23] MEDS: BACITRACIN 15 GM TUBE TOPICAL OINTMENT TP SCH (12:04)
[2016-09-23] MEDS: MULTIVIT-MINERALS 236 ML ML GT SCH (12:04)
[2016-09-23] MEDS: RANITIDINE HCL 150 MG/10 ML UNIT-DOSE CUP PO SCH ×2 (12:04→23:34)
[2016-09-23] MEDS: SIMETHICONE 40 MG/0.6 ML BOTTLE PEG SCH (12:05)
[2016-09-23] MEDS: AMINO ACIDS/PROTEIN HYDROLYS SUGAR-FREE 30 ML PACKET PO SCH (12:05)
--- NOTE | 2016-09-23 13:57 | PN ---
Progress Note (short form) - Note Progress Note: Subjective: The patient was seen and examined at the bedside, non-verbal. Tmax 102.4 Current Medications Generic Name Dose Route Start Last Admin Trade Name Freq PRN Reason Stop Dose Admin Acetaminophen 650 mg 05/26/16 14:23 09/21/16 17:19 Tylenol Oral Solution - GT 650 mg Q4H PRN Administration FEVER Amino Acids 30 ml 06/28/16 10:00 09/21/16 09:37 Prostat Sugar-Free Packet - PO 30 ml DAILY [facility] Administration Amlodipine Besylate 10 mg 12/30/15 10:00 09/21/16 09:41 Norvasc - GT 10 mg DAILY [facility] Administration Bacitracin 1 applic 08/09/16 16:15 09/21/16 09:36 Bacitracin - TP 1 applic DAILY [facility] Administration Guaifenesin 10 ml 12/29/15 10:43 08/02/16 10:38 Robitussin Dm - PO 10 ml Q6H PRN Administration COUGH Piperacillin Sod/Tazobactam 50 mls @ 100 mls/hr 09/19/16 18:00 09/22/16 01:56 Sod 3.375 gm/ Sodium Chloride IVPB 100 mls/hr Q8H-IV [facility] Administration Insulin Aspart 1 vial 09/17/16 16:30 09/22/16 06:13 Novolog Vial Sliding Scale - SQ 4 units ACHS [facility]AKU Administration Protocol Insulin Detemir 20 units 09/21/16 13:25 09/21/16 22:00 Levemir Vial SQ 20 units HS [facility] Administration Lactobacillus Acidophilus 1 tab 12/30/15 10:00 09/21/16 09:35 Bacid - PO 1 tab DAILY [facility] Administration Lisinopril 40 mg 12/30/15 10:00 09/21/16 09:41 Prinivil GT 40 mg DAILY [facility] Administration Metoprolol Tartrate 150 mg 12/29/15 22:00 09/21/16 22:00 Lopressor - GT 150 mg BID [facility]WAKU Administration Metoprolol Tartrate 5 mg 12/29/15 10:43 Lopressor Injection - IVPB Q6H PRN HYPERTENSION Ranitidine HCl 150 mg 08/27/16 12:15 09/21/16 22:00 Zantac Oral Solution - PO 150 mg BID KWAKU Administration Scopolamine HBr 1 patch 05/20/16 15:45 09/20/16 19:02 Transderm-Scop - TD 1 patch Q72H KWAKU Administration Simethicone 40 mg 08/25/16 10:00 09/21/16 09:36 Mylicon Liquid - PEG 40 mg DAILY [facility]WAKU Administration Objective: Vital Signs Period Temp Pulse Resp BP Sys/Santiago Pulse Ox Last 24 Hr 99.8 F-102.4 F 75-100 16-20 136-138/82-85 95-97 Physical Exam: General: No acute distress HEENT: Gauze dressing to anterior neck, c/d/i Neuro: Eye tracking to verbal stimulus Pulm: CTA anteriorly CV: RRR, S1S2 Abd: Soft, non-distended. Normoactive bowel sounds. Peg tube c/d/i Ext: Warm, well-perfused. 2+ DP/PT bilaterally Skin: Right buttock ulcers x2 CBCD WBC 5.1 K/mm3 (4.0-10.0) 09/23/16 07:00 RBC 3.96 M/mm3 (4.00-5.60) L 09/23/16 07:00 Hgb 11.6 GM/dL (11.7-16.9) L 09/23/16 07:00 Hct 35.0 % (35.4-49) L 09/23/16 07:00 MCV 88.4 fl (80-96) 09/23/16 07:00 MCHC 33.1 g/dl (32.0-35.9) 09/23/16 07:00 RDW 16.4 % (11.9-15.9) H 09/23/16 07:00 Plt Count 111 K/MM3 (134-434) L 09/23/16 07:00 MPV 11.1 fl (7.5-11.1) 09/23/16 07:00 CMP Sodium 153 mmol/L (136-145) H 09/23/16 07:00 Potassium 3.6 mmol/L (3.5-5.1) 09/23/16 07:00 Chloride 117 mmol/L (98-107) H 09/23/16 07:00 Carbon Dioxide 26 mmol/L (21-32) 09/23/16 07:00 Anion Gap 10 (8-16) 09/23/16 07:00 BUN 22 mg/dL (7-18) H 09/23/16 07:00 Creatinine 0.8 mg/dL (0.7-1.3) 09/23/16 07:00 Creat Clearance w eGFR > 60 (>60) 09/20/16 05:45 Random Glucose 182 mg/dL (74-106) H 09/23/16 07:00 Calcium 9.4 mg/dL (8.5-10.1) 09/23/16 07:00 Total Bilirubin 0.5 mg/dL (0.2-1.0) D 09/20/16 05:45 AST 43 U/L (15-37) H D 09/20/16 05:45 ALT 89 U/L (12-78) H 09/20/16 05:45 Alkaline Phosphatase 101 U/L (45-117) D 09/20/16 05:45 Total Protein 7.8 g/dl (6.4-8.2) 09/20/16 05:45 Albumin 3.1 g/dl (3.4-5.0) L 09/20/16 05:45 CARDIAC ENZYMES Creatine Kinase 62 IU/L (38-174) 06/28/15 09:35 Troponin I 0.07 ng/ml (0.03-0.5) D 07/09/15 05:00 Microbiology 09/20/16 13:29 Blood Culture - Preliminary Blood - Peripheral Venous NO GROWTH OBTAINED AFTER 72 HOURS, INCUBATION TO CONTINUE FOR 2 DAYS. 09/20/16 13:10 Blood Culture - Preliminary Blood - Peripheral Venous NO GROWTH OBTAINED AFTER 72 HOURS, INCUBATION TO CONTINUE FOR 2 DAYS. 09/21/16 18:40 Salmonella/Shigella Culture - Preliminary Stool Non Lactose Fermenting Gnb Campylobacter Culture - Preliminary NO ENTERIC PATHOGENS, 24 HOURS, ON PRIMARY PLATES Yersinia Culture - Final NO GROWTH OF YERSINIA SPECIES OBTAINED Vibrio Culture - Final NO GROWTH OF VIBRIO SPECIES OBTAINED Escherichia coli 0157 Culture - Final NO GROWTH OF E COLI 0157 OBTAINED 09/20/16 15:45 Urine Culture - Final Urine - Urine Clean Catch Enterococcus Faecium Diphtheroid/Corynebacterium 09/21/16 18:40 Gram Stain - Final Stool 09/21/16 18:40 Parasite Direct Smear - Final Stool Ova and Parasite Macroscopic Exam - Final Parasite Concentrated Smear - Preliminary Parasite Permanent Smear - Preliminary Cryptosporidium Antigen - Final Giardia Antigen (MACHO) - Final 09/21/16 15:55 Clostridium difficile Antigen (MACHO) - Final Stool Clostridium difficile Toxin Assay - Final Assessment: 75 year old male with PMHx of HTN, IDDM, inguinal hernia who presented to the ED with diverticular bleed s/p Righ hemicolectomy with 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 Plan: 1. ID: Fevers, diarrhea - Observe off abx - Stool studies pending - C.diff negative - Urine culture 09/20 with Enterococcus faecium and diphtheroid/corynebacterium 2. Anoxic brain injury s/p brainstem CVAs - Mental status unchanged 3. Respiratory failure secondary to anoxic brain injury - Cont O2 via room air, NC when needed - Trach removed 09/09/16 - Duonebs PRN 4. HTN - Continue lisinopril, amlodipine, lopressor 5. Multiple pressure ulcers - Turn and position q2h 6. IDDM - Continue Levemir at 18u sq qhs - ISS BGM ACHS 7. F/E/N: - Hypernatremia improving - 70 ml/hr Glucerna 1.5, 65 ml/hr water flushes - Prostat daily - Continue Zantac bid 8. Prophylaxis: - SCDs bilaterally (lower extremity doppler negative for DVTs 09/20/16) - No chemical anticoagulation 2/2 spontaneous gluteal bleed and severe GI bleed - Functional quadriplegia CODE STATUS: DNR Visit type - Emergency Visit Emergency Visit: Yes ED Registration Date: 06/27/15 Care time: The patient presented to the Emergency Department on the above date and was hospitalized for further evaluation of their emergent condition. - New Patient This patient is new to me today: No - Critical Care Critical Care patient: No
[2016-09-23] MEDS: SCOPOLAMINE HYDROBROMIDE 1 PATCH PATCH.TD72 TD SCH (15:25)
[2016-09-23] MEDS: INSULIN DETEMIR 100 UNITS/ML MDV SQ SCH (23:32)
[2016-09-24] MEDS: INSULIN SLIDING SCALE (NOVOLOG) 1 VIAL SQ SCH ×4 (07:27→22:42)
--- NOTE | 2016-09-24 08:28 | PN ---
Progress Note (short form) - Note Progress Note: Subjective: The patient was seen and examined at the bedside, non-verbal. Tolerating room air well Tmax 100.5 on 09/23 Continue to observe off abx Current Medications Generic Name Dose Route Start Last Admin Trade Name Freq PRN Reason Stop Dose Admin Acetaminophen 650 mg 05/26/16 14:23 09/23/16 01:53 Tylenol Oral Solution - GT 650 mg Q4H PRN Administration FEVER Amino Acids 30 ml 06/28/16 10:00 09/23/16 12:05 Prostat Sugar-Free Packet - PO 30 ml DAILY KWAKU Administration Amlodipine Besylate 10 mg 12/30/15 10:00 09/23/16 12:02 Norvasc - GT 10 mg DAILY KWAKU Administration Bacitracin 1 applic 08/09/16 16:15 09/23/16 12:04 Bacitracin - TP 1 applic DAILY KWAKU Administration Guaifenesin 10 ml 12/29/15 10:43 08/02/16 10:38 Robitussin Dm - PO 10 ml Q6H PRN Administration COUGH Insulin Aspart 1 vial 09/17/16 16:30 09/24/16 07:27 Novolog Vial Sliding Scale - SQ 4 units ACHS KWAKU Administration Protocol Insulin Detemir 20 units 09/21/16 13:25 09/23/16 23:32 Levemir Vial SQ 20 units HS KWAKU Administration Lactobacillus Acidophilus 1 tab 12/30/15 10:00 09/23/16 12:02 Bacid - PO 1 tab DAILY KWAKU Administration Lisinopril 40 mg 12/30/15 10:00 09/23/16 12:01 Prinivil GT 40 mg DAILY KWAKU Administration Metoprolol Tartrate 150 mg 12/29/15 22:00 09/23/16 23:34 Lopressor - GT 150 mg BID KWAKU Administration Metoprolol Tartrate 5 mg 12/29/15 10:43 Lopressor Injection - IVPB Q6H PRN HYPERTENSION Ranitidine HCl 150 mg 08/27/16 12:15 09/23/16 23:34 Zantac Oral Solution - PO 150 mg BID KWAKU Administration Scopolamine HBr 1 patch 05/20/16 15:45 09/23/16 15:25 Transderm-Scop - TD 1 patch Q72H KWAKU Administration Simethicone 40 mg 08/25/16 10:00 09/23/16 12:05 Mylicon Liquid - PEG 40 mg DAILY KWAKU Administration Objective: Vital Signs Period Temp Pulse Resp BP Sys/Santiago Pulse Ox Last 24 Hr 97.2 F-98.9 F 76-96 20-20 131-147/81-85 95-96 Physical Exam: General: No acute distress, tracking with eyes today HEENT: Gauze dressing to anterior neck, c/d/i Neuro: Eye tracking to verbal stimulus Pulm: CTA anteriorly CV: RRR, S1S2 Abd: Soft, non-distended. Normoactive bowel sounds. Peg tube c/d/i Ext: Warm, well-perfused. 2+ DP/PT bilaterally Skin: Right buttock ulcers x2 CBCD WBC 5.1 K/mm3 (4.0-10.0) 09/23/16 07:00 RBC 3.96 M/mm3 (4.00-5.60) L 09/23/16 07:00 Hgb 11.6 GM/dL (11.7-16.9) L 09/23/16 07:00 Hct 35.0 % (35.4-49) L 09/23/16 07:00 MCV 88.4 fl (80-96) 09/23/16 07:00 MCHC 33.1 g/dl (32.0-35.9) 09/23/16 07:00 RDW 16.4 % (11.9-15.9) H 09/23/16 07:00 Plt Count 111 K/MM3 (134-434) L 09/23/16 07:00 MPV 11.1 fl (7.5-11.1) 09/23/16 07:00 CMP Sodium 153 mmol/L (136-145) H 09/23/16 07:00 Potassium 3.6 mmol/L (3.5-5.1) 09/23/16 07:00 Chloride 117 mmol/L (98-107) H 09/23/16 07:00 Carbon Dioxide 26 mmol/L (21-32) 09/23/16 07:00 Anion Gap 10 (8-16) 09/23/16 07:00 BUN 22 mg/dL (7-18) H 09/23/16 07:00 Creatinine 0.8 mg/dL (0.7-1.3) 09/23/16 07:00 Creat Clearance w eGFR > 60 (>60) 09/20/16 05:45 Random Glucose 182 mg/dL (74-106) H 09/23/16 07:00 Calcium 9.4 mg/dL (8.5-10.1) 09/23/16 07:00 Total Bilirubin 0.5 mg/dL (0.2-1.0) D 09/20/16 05:45 AST 43 U/L (15-37) H D 09/20/16 05:45 ALT 89 U/L (12-78) H 09/20/16 05:45 Alkaline Phosphatase 101 U/L (45-117) D 09/20/16 05:45 Total Protein 7.8 g/dl (6.4-8.2) 09/20/16 05:45 Albumin 3.1 g/dl (3.4-5.0) L 09/20/16 05:45 CARDIAC ENZYMES Creatine Kinase 62 IU/L (38-174) 06/28/15 09:35 Troponin I 0.07 ng/ml (0.03-0.5) D 07/09/15 05:00 Microbiology 09/20/16 13:29 Blood Culture - Preliminary Blood - Peripheral Venous NO GROWTH OBTAINED AFTER 72 HOURS, INCUBATION TO CONTINUE FOR 2 DAYS. 09/20/16 13:10 Blood Culture - Preliminary Blood - Peripheral Venous NO GROWTH OBTAINED AFTER 72 HOURS, INCUBATION TO CONTINUE FOR 2 DAYS. 09/21/16 18:40 Salmonella/Shigella Culture - Preliminary Stool Non Lactose Fermenting Gnb Campylobacter Culture - Preliminary NO ENTERIC PATHOGENS, 24 HOURS, ON PRIMARY PLATES Yersinia Culture - Final NO GROWTH OF YERSINIA SPECIES OBTAINED Vibrio Culture - Final NO GROWTH OF VIBRIO SPECIES OBTAINED Escherichia coli 0157 Culture - Final NO GROWTH OF E COLI 0157 OBTAINED 09/20/16 15:45 Urine Culture - Final Urine - Urine Clean Catch Enterococcus Faecium Diphtheroid/Corynebacterium 09/21/16 18:40 Gram Stain - Final Stool 09/21/16 18:40 Parasite Direct Smear - Final Stool Ova and Parasite Macroscopic Exam - Final Parasite Concentrated Smear - Preliminary Parasite Permanent Smear - Preliminary Cryptosporidium Antigen - Final Giardia Antigen (MACHO) - Final 09/21/16 15:55 Clostridium difficile Antigen (MACHO) - Final Stool Clostridium difficile Toxin Assay - Final Assessment: 75 year old male with PMHx of HTN, IDDM, inguinal hernia who presented to the ED with diverticular bleed s/p Righ hemicolectomy with 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 Plan: 1. ID: Fevers, diarrhea - WBC wnl - Remains afebrile - Observe off abx - Stool studies pending - C.diff negative - Urine culture 09/20 with Enterococcus faecium and diphtheroid/corynebacterium 2. Anoxic brain injury s/p brainstem CVAs - Mental status unchanged 3. Respiratory failure secondary to anoxic brain injury - Cont O2 via room air, NC when needed - Trach removed 09/09/16 - Duonebs PRN 4. HTN - Continue lisinopril, amlodipine, lopressor 5. Multiple pressure ulcers - Turn and position q2h 6. IDDM - Continue Levemir at 18u sq qhs - ISS BGM ACHS 7. F/E/N: - Hypernatremia improving - 70 ml/hr Glucerna 1.5, 65 ml/hr water flushes - Prostat daily - Continue Zantac bid 8. Prophylaxis: - SCDs bilaterally (lower extremity doppler negative for DVTs 09/20/16) - No chemical anticoagulation 2/2 spontaneous gluteal bleed and severe GI bleed - Functional quadriplegia CODE STATUS: DNR Visit type - Emergency Visit Emergency Visit: Yes ED Registration Date: 06/27/15 Care time: The patient presented to the Emergency Department on the above date and was hospitalized for further evaluation of their emergent condition. - New Patient This patient is new to me today: No - Critical Care Critical Care patient: No
[2016-09-24] MEDS: LACTOBACILLUS ACIDOPHILUS 1 EACH TAB (FP) PO SCH (11:04)
[2016-09-24] MEDS: LISINOPRIL 20 MG TABLET (FP) GT SCH (11:04)
[2016-09-24] MEDS: amLODIPine BESYLATE 10 MG TABLET (FP) GT SCH (11:04)
[2016-09-24] MEDS: METOPROLOL TARTRATE 50 MG TABLET (FP) GT SCH ×2 (11:05→22:39)
[2016-09-24] MEDS: RANITIDINE HCL 150 MG/10 ML UNIT-DOSE CUP PO SCH ×2 (11:05→22:39)
[2016-09-24] MEDS: AMINO ACIDS/PROTEIN HYDROLYS SUGAR-FREE 30 ML PACKET PO SCH (11:06)
[2016-09-24] MEDS: MULTIVIT-MINERALS 236 ML ML GT SCH (11:07)
[2016-09-24] MEDS: SIMETHICONE 40 MG/0.6 ML BOTTLE PEG SCH (11:08)
[2016-09-24] MEDS: ACETAMINOPHEN 650 MG/20.3 ML ORAL SOLUTION (CUPS) GT PRN (11:50)
[2016-09-24] MEDS: BACITRACIN 15 GM TUBE TOPICAL OINTMENT TP SCH (11:51)
[2016-09-24] MEDS: INSULIN DETEMIR 100 UNITS/ML MDV SQ SCH (22:40)
[2016-09-25] MEDS: INSULIN SLIDING SCALE (NOVOLOG) 1 VIAL SQ SCH ×4 (06:12→23:14)
[2016-09-25 07:19] LABS: MCH 29.8 pg (25.7-33.7); MCHC 33.6 g/dl (32.0-35.9); MEAN CELL VOLUME 88.7 fl (80-96); MEAN PLT VOLUME 11.3 fl (7.5-11.1); RDW 16.3 % (11.9-15.9); WHITE BLOOD COUNT 9.1 K/mm3 (4.0-10.0)
[2016-09-25 08:22] LABS: ALK PHOS 120 U/L (45-117); ANION GAP 6 (8-16); BILIRUBIN,TOTAL 0.3 mg/dL (0.2-1.0); CALCIUM 9.3 mg/dL (8.5-10.1); CO2 28 mmol/L (21-32); CREATININE 0.7 mg/dL (0.7-1.3); GLUCOSE,RANDOM 184 mg/dL (74-106); SGOT/AST 29 U/L (15-37); SGPT/ALT 50 U/L (12-78); TOT PROT 7.3 g/dl (6.4-8.2)
--- NOTE | 2016-09-25 08:51 | PN ---
Physical Exam: SUBJECTIVE: Patient seen and examined. He appears comfortable. He is stable on RA 24 events: no acute events, no fevers noted OBJECTIVE: Vital Signs Period Temp Pulse Resp BP Sys/Santiago Pulse Ox Last 24 Hr 97.8 F-100.4 F 70-88 20-20 137-151/76-87 98-99 PE Neuro: non verbal, spontaneous movement of upper extremities, eyes, head HEENT: sputum in mouth, anterior trach hole w/ dressing CDI Pulm: CTAB CV: s1 s2 rrr no mrg Abd: Peg tube CDI soft abd Ext: warm, +DP pulses Skin: x2 buttock ulcers Laboratory Report 09/25/16 09/25/16 05:35 07:30 WBC 9.1 D RBC 3.93 L Hgb 11.7 Hct 34.9 L MCV 88.7 MCHC 33.6 RDW 16.3 H MPV 11.3 H Sodium 149 H Potassium 3.7 Chloride 115 H Carbon Dioxide 28 Anion Gap 6 L BUN 27 H D Creatinine 0.7 Creat Clearance w eGFR > 60 POC Glucometer Random Glucose 184 H Calcium 9.3 Total Bilirubin 0.3 D AST 29 D ALT 50 D Alkaline Phosphatase 120 H Total Protein 7.3 Albumin 3.0 L Active Medications Generic Name Dose Route Start Last Admin Trade Name Freq PRN Reason Stop Dose Admin Acetaminophen 650 mg 05/26/16 14:23 09/24/16 11:50 Tylenol Oral Solution - GT 650 mg Q4H PRN Administration FEVER Amino Acids 30 ml 06/28/16 10:00 09/24/16 11:06 Prostat Sugar-Free Packet - PO 30 ml DAILY KWAKU Administration Amlodipine Besylate 10 mg 12/30/15 10:00 09/24/16 11:04 Norvasc - GT 10 mg DAILY KWAKU Administration Bacitracin 1 applic 08/09/16 16:15 09/24/16 11:51 Bacitracin - TP 1 applic DAILY KWAKU Administration Guaifenesin 10 ml 12/29/15 10:43 08/02/16 10:38 Robitussin Dm - PO 10 ml Q6H PRN Administration COUGH Insulin Aspart 1 vial 09/17/16 16:30 09/25/16 06:12 Novolog Vial Sliding Scale - SQ 4 units ACHS KWAKU Administration Protocol Insulin Detemir 20 units 09/21/16 13:25 09/24/16 22:40 Levemir Vial SQ 20 units HS KWAKU Administration Lactobacillus Acidophilus 1 tab 12/30/15 10:00 09/24/16 11:04 Bacid - PO 1 tab DAILY KWAKU Administration Lisinopril 40 mg 12/30/15 10:00 09/24/16 11:04 Prinivil GT 40 mg DAILY KWAKU Administration Metoprolol Tartrate 150 mg 12/29/15 22:00 09/24/16 22:39 Lopressor - GT 150 mg BID KWAKU Administration Metoprolol Tartrate 5 mg 12/29/15 10:43 Lopressor Injection - IVPB Q6H PRN HYPERTENSION Ranitidine HCl 150 mg 08/27/16 12:15 09/24/16 22:39 Zantac Oral Solution - PO 150 mg BID KWAKU Administration Scopolamine HBr 1 patch 05/20/16 15:45 09/23/16 15:25 Transderm-Scop - TD 1 patch Q72H KWAKU Administration Simethicone 40 mg 08/25/16 10:00 09/24/16 11:08 Mylicon Liquid - PEG 40 mg DAILY KWAKU Administration Assessment: 75 year old male with PMHx of HTN, IDDM, inguinal hernia who presented to the ED with diverticular bleed s/p Righ hemicolectomy with hospital course complicated 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 Plan: 1. Fevers, diarrhea - Afebrile off abx - Stool studies negative thus far 2. Anoxic brain injury s/p brainstem CVAs - Mental status unchanged 3. Respiratory failure secondary to anoxic brain injury - Cont O2 via room air, NC when needed - Duonebs PRN 4. HTN - Continue lisinopril, amlodipine, lopressor 5. Multiple pressure ulcers - Turn and position q2h 6. IDDM - AM sugar controlled - Levemir at 18u sq qhs - ISS BGM ACHS 7. Nutrition - Hypernatremia improving - 70 ml/hr Glucerna 1.5, 65 ml/hr water flushes - Prostat daily - Zantac BID - BMP in AM 8. Prophylaxis: - SCDs bilaterally - No chemical AC 2/2 spontaneous gluteal bleed and severe GI bleed - Functional quadriplegia CODE STATUS: DNR Visit type - Emergency Visit Emergency Visit: Yes ED Registration Date: 06/27/15 Care time: The patient presented to the Emergency Department on the above date and was hospitalized for further evaluation of their emergent condition. - New Patient This patient is new to me today: No - Critical Care Critical Care patient: No - Discharge Referral Referred to [facility] Med P.C.: No
[2016-09-25 09:48] LABS: PLATELET COUNT 78 K/MM3 (134-434)
[2016-09-25 09:49] LABS: PLATELET COMMENT2 FEW GIANT PLTS
[2016-09-25] MEDS: AMINO ACIDS/PROTEIN HYDROLYS SUGAR-FREE 30 ML PACKET PO SCH (10:29)
[2016-09-25] MEDS: RANITIDINE HCL 150 MG/10 ML UNIT-DOSE CUP PO SCH ×2 (10:29→23:13)
[2016-09-25] MEDS: LACTOBACILLUS ACIDOPHILUS 1 EACH TAB (FP) PO SCH (10:29)
[2016-09-25] MEDS: BACITRACIN 15 GM TUBE TOPICAL OINTMENT TP SCH (10:29)
[2016-09-25] MEDS: MULTIVIT-MINERALS 236 ML ML GT SCH (10:30)
[2016-09-25] MEDS: LISINOPRIL 20 MG TABLET (FP) GT SCH (10:30)
[2016-09-25] MEDS: METOPROLOL TARTRATE 50 MG TABLET (FP) GT SCH ×2 (10:30→23:12)
[2016-09-25] MEDS: SIMETHICONE 40 MG/0.6 ML BOTTLE PEG SCH (10:30)
[2016-09-25] MEDS: amLODIPine BESYLATE 10 MG TABLET (FP) GT SCH (10:30)
[2016-09-25] MEDS: ACETAMINOPHEN 650 MG/20.3 ML ORAL SOLUTION (CUPS) GT PRN (15:45)
[2016-09-25] MEDS: INSULIN DETEMIR 100 UNITS/ML MDV SQ SCH (23:13)
[2016-09-26] MEDS: ACETAMINOPHEN 650 MG/20.3 ML ORAL SOLUTION (CUPS) GT PRN ×2 (02:07→23:12)
[2016-09-26] MEDS: INSULIN SLIDING SCALE (NOVOLOG) 1 VIAL SQ SCH ×4 (06:17→23:13)
[2016-09-26 08:08] LABS: CALCIUM 8.8 mg/dL (8.5-10.1); CREATININE 0.7 mg/dL (0.7-1.3)
[2016-09-26] MEDS: RANITIDINE HCL 150 MG/10 ML UNIT-DOSE CUP PO SCH ×2 (11:38→23:13)
[2016-09-26] MEDS: LACTOBACILLUS ACIDOPHILUS 1 EACH TAB (FP) PO SCH (11:38)
[2016-09-26] MEDS: BACITRACIN 15 GM TUBE TOPICAL OINTMENT TP SCH (11:39)
[2016-09-26] MEDS: METOPROLOL TARTRATE 50 MG TABLET (FP) GT SCH ×2 (11:39→23:13)
[2016-09-26] MEDS: SIMETHICONE 40 MG/0.6 ML BOTTLE PEG SCH (11:39)
[2016-09-26] MEDS: LISINOPRIL 20 MG TABLET (FP) GT SCH (11:39)
[2016-09-26] MEDS: MULTIVIT-MINERALS 236 ML ML GT SCH (11:39)
[2016-09-26] MEDS: amLODIPine BESYLATE 10 MG TABLET (FP) GT SCH (11:39)
[2016-09-26] MEDS: AMINO ACIDS/PROTEIN HYDROLYS SUGAR-FREE 30 ML PACKET PO SCH (11:40)
--- NOTE | 2016-09-26 15:23 | PN ---
Physical Exam: SUBJECTIVE: Patient seen and examined. No acute changes. 24 hr: low grade fevers OBJECTIVE: Vital Signs Period Temp Pulse Resp BP Sys/Santiago Pulse Ox Last 24 Hr 99.8 F-100.5 F 74-92 18-20 122-141/84-97 98 PE Neuro: non verbal, spontaneous movement of upper extremities, eyes, head HEENT: trach hole w/ dressing CDI Pulm: CTAB CV: s1 s2 rrr no mrg Abd: Peg tube CDI soft abd Ext: warm, +DP pulses Skin: x2 buttock ulcers appear clean, x3 holes red Laboratory Results - last 24 hr 09/25/16 09/25/16 09/26/16 17:41 22:55 05:12 Sodium Potassium Chloride Carbon Dioxide Anion Gap BUN Creatinine POC Glucometer 206 143 190 Random Glucose Calcium 09/26/16 09/26/16 06:00 11:47 Sodium 149 H Potassium 3.5 Chloride 112 H Carbon Dioxide 27 Anion Gap 10 BUN 22 H Creatinine 0.7 POC Glucometer 203 Random Glucose 173 H Calcium 8.8 Active Medications Generic Name Dose Route Start Last Admin Trade Name Freq PRN Reason Stop Dose Admin Acetaminophen 650 mg 05/26/16 14:23 09/26/16 02:07 Tylenol Oral Solution - GT 650 mg Q4H PRN Administration FEVER Amino Acids 30 ml 06/28/16 10:00 09/26/16 11:40 Prostat Sugar-Free Packet - PO 30 ml DAILY KWAKU Administration Amlodipine Besylate 10 mg 12/30/15 10:00 09/26/16 11:39 Norvasc - GT 10 mg DAILY KWAKU Administration Bacitracin 1 applic 08/09/16 16:15 09/26/16 11:39 Bacitracin - TP 1 applic DAILY KWAKU Administration Guaifenesin 10 ml 12/29/15 10:43 08/02/16 10:38 Robitussin Dm - PO 10 ml Q6H PRN Administration COUGH Insulin Aspart 1 vial 09/17/16 16:30 09/26/16 11:49 Novolog Vial Sliding Scale - SQ 6 units ACHS KWAKU Administration Protocol Insulin Detemir 20 units 09/21/16 13:25 09/25/16 23:13 Levemir Vial SQ 20 units HS KWAKU Administration Lactobacillus Acidophilus 1 tab 12/30/15 10:00 09/26/16 11:38 Bacid - PO 1 tab DAILY KWAKU Administration Lisinopril 40 mg 12/30/15 10:00 09/26/16 11:39 Prinivil GT 40 mg DAILY KWAKU Administration Metoprolol Tartrate 150 mg 12/29/15 22:00 09/26/16 11:39 Lopressor - GT 150 mg BID KWAKU Administration Metoprolol Tartrate 5 mg 12/29/15 10:43 Lopressor Injection - IVPB Q6H PRN HYPERTENSION Ranitidine HCl 150 mg 08/27/16 12:15 09/26/16 11:38 Zantac Oral Solution - PO 150 mg BID KWAKU Administration Scopolamine HBr 1 patch 05/20/16 15:45 09/23/16 15:25 Transderm-Scop - TD 1 patch Q72H KWAKU Administration Simethicone 40 mg 08/25/16 10:00 09/26/16 11:39 Mylicon Liquid - PEG 40 mg DAILY KWAKU Administration Assessment: 75 year old male with PMHx of HTN, IDDM, inguinal hernia who presented to the ED with diverticular bleed s/p Righ hemicolectomy with hospital course complicated 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 Plan: 1. Fevers, diarrhea - Low grade fevers, off abx - Stool studies negative thus far - Cont to monitor 2. Anoxic brain injury s/p brainstem CVAs - Mental status unchanged 3. Respiratory failure secondary to anoxic brain injury - Cont O2 via room air, NC when needed - Duonebs PRN 4. HTN - Continue lisinopril, amlodipine, lopressor 5. Multiple pressure ulcers - Turn and position q2h 6. IDDM - AM sugar controlled - Levemir at 18u sq qhs - ISS BGM ACHS 7. Nutrition - Hypernatremia improving - 70 ml/hr Glucerna 1.5, 65 ml/hr water flushes - Prostat daily - Zantac BID - BMP in AM 8. Prophylaxis: - SCDs bilaterally - No chemical AC 2/2 spontaneous gluteal bleed and severe GI bleed - Functional quadriplegia CODE STATUS: DNR Visit type - Emergency Visit Emergency Visit: Yes ED Registration Date: 06/27/15 Care time: The patient presented to the Emergency Department on the above date and was hospitalized for further evaluation of their emergent condition. - New Patient This patient is new to me today: No - Critical Care Critical Care patient: No - Discharge Referral Referred to [facility] Med P.C.: No
[2016-09-26] MEDS: SCOPOLAMINE HYDROBROMIDE 1 PATCH PATCH.TD72 TD SCH (18:30)
[2016-09-26] MEDS: INSULIN DETEMIR 100 UNITS/ML MDV SQ SCH (23:14)
[2016-09-27] MEDS: ACETAMINOPHEN 650 MG/20.3 ML ORAL SOLUTION (CUPS) GT PRN ×2 (05:46→22:33)
[2016-09-27] MEDS: INSULIN SLIDING SCALE (NOVOLOG) 1 VIAL SQ SCH ×4 (06:22→22:33)
--- NOTE | 2016-09-27 10:30 | PN ---
Physical Exam: SUBJECTIVE: Patient seen and examined. No changes, he is awake in bed. OBJECTIVE: Vital Signs Period Temp Pulse Resp BP Sys/Santiago Pulse Ox Last 24 Hr 98.1 F-100.3 F 70-101 20-20 123-135/77-82 98 PE Neuro: non verbal, eyes open HEENT: trach hole w/ dressing CDI Pulm: CTAB CV: s1 s2 rrr no mrg Abd: Peg tube CDI soft abd Ext: warm, +DP pulses Skin: x2 buttock ulcers Laboratory Results - last 24 hr 09/26/16 09/26/16 09/26/16 11:47 18:29 23:07 POC Glucometer 203 226 198 09/27/16 05:45 POC Glucometer 141 Active Medications Generic Name Dose Route Start Last Admin Trade Name Freq PRN Reason Stop Dose Admin Acetaminophen 650 mg 05/26/16 14:23 09/27/16 05:46 Tylenol Oral Solution - GT 650 mg Q4H PRN Administration FEVER Amino Acids 30 ml 06/28/16 10:00 09/26/16 11:40 Prostat Sugar-Free Packet - PO 30 ml DAILY KWAKU Administration Amlodipine Besylate 10 mg 12/30/15 10:00 09/26/16 11:39 Norvasc - GT 10 mg DAILY KWAKU Administration Bacitracin 1 applic 08/09/16 16:15 09/26/16 11:39 Bacitracin - TP 1 applic DAILY KWAKU Administration Guaifenesin 10 ml 12/29/15 10:43 08/02/16 10:38 Robitussin Dm - PO 10 ml Q6H PRN Administration COUGH Insulin Aspart 1 vial 09/17/16 16:30 09/27/16 06:22 Novolog Vial Sliding Scale - SQ Not Given ACHS [facility] Protocol Insulin Detemir 20 units 09/21/16 13:25 09/26/16 23:14 Levemir Vial SQ 20 units HS KWAKU Administration Lactobacillus Acidophilus 1 tab 12/30/15 10:00 09/26/16 11:38 Bacid - PO 1 tab DAILY KWAKU Administration Lisinopril 40 mg 12/30/15 10:00 09/26/16 11:39 Prinivil GT 40 mg DAILY KWAKU Administration Metoprolol Tartrate 150 mg 12/29/15 22:00 09/26/16 23:13 Lopressor - GT 150 mg BID KWAKU Administration Metoprolol Tartrate 5 mg 12/29/15 10:43 Lopressor Injection - IVPB Q6H PRN HYPERTENSION Ranitidine HCl 150 mg 08/27/16 12:15 09/26/16 23:13 Zantac Oral Solution - PO 150 mg BID KWAKU Administration Scopolamine HBr 1 patch 05/20/16 15:45 09/26/16 18:30 Transderm-Scop - TD 1 patch Q72H KWAKU Administration Simethicone 40 mg 08/25/16 10:00 09/26/16 11:39 Mylicon Liquid - PEG 40 mg DAILY KWAKU Administration Assessment: 75 year old male with PMHx of HTN, IDDM, inguinal hernia who presented to the ED with diverticular bleed s/p Righ hemicolectomy with hospital course complicated 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 Plan: 1. Fevers, diarrhea - Low grade fevers overnight, improved w/ tylenol - Will monitor off abx, if fever increases >101 will re call ID - DVT dopplers last week negative 2. Anoxic brain injury s/p brainstem CVAs - Mental status unchanged 3. Respiratory failure secondary to anoxic brain injury - Cont O2 via room air, NC when needed - Duonebs PRN 4. HTN - Continue lisinopril, amlodipine, lopressor 5. Multiple pressure ulcers - Turn and position q2h 6. IDDM - AM sugar controlled - Levemir at 18u sq qhs - ISS BGM ACHS 7. Nutrition - Hypernatremia improving - 70 ml/hr Glucerna 1.5, 65 ml/hr water flushes - Prostat daily - Zantac BID - BMP in AM 8. Prophylaxis: - SCDs bilaterally - No chemical AC 2/2 spontaneous gluteal bleed and severe GI bleed - Functional quadriplegia CODE STATUS: DNR Visit type - Emergency Visit Emergency Visit: Yes ED Registration Date: 06/27/15 Care time: The patient presented to the Emergency Department on the above date and was hospitalized for further evaluation of their emergent condition. - New Patient This patient is new to me today: No - Critical Care Critical Care patient: No - Discharge Referral Referred to [facility] Med P.C.: No
[2016-09-27] MEDS: LACTOBACILLUS ACIDOPHILUS 1 EACH TAB (FP) PO SCH (13:37)
[2016-09-27] MEDS: METOPROLOL TARTRATE 50 MG TABLET (FP) GT SCH ×2 (13:37→22:29)
[2016-09-27] MEDS: SIMETHICONE 40 MG/0.6 ML BOTTLE PEG SCH (13:38)
[2016-09-27] MEDS: BACITRACIN 15 GM TUBE TOPICAL OINTMENT TP SCH (13:38)
[2016-09-27] MEDS: MULTIVIT-MINERALS 236 ML ML GT SCH (13:38)
[2016-09-27] MEDS: amLODIPine BESYLATE 10 MG TABLET (FP) GT SCH (13:38)
[2016-09-27] MEDS: RANITIDINE HCL 150 MG/10 ML UNIT-DOSE CUP PO SCH ×2 (13:39→22:29)
[2016-09-27] MEDS: AMINO ACIDS/PROTEIN HYDROLYS SUGAR-FREE 30 ML PACKET PO SCH (13:39)
[2016-09-27] MEDS: LISINOPRIL 20 MG TABLET (FP) GT SCH (13:39)
[2016-09-27] MEDS: INSULIN DETEMIR 100 UNITS/ML MDV SQ SCH (22:32)
[2016-09-28] MEDS: INSULIN SLIDING SCALE (NOVOLOG) 1 VIAL SQ SCH ×4 (06:50→22:20)
[2016-09-28] MEDS: LISINOPRIL 20 MG TABLET (FP) GT SCH (10:12)
[2016-09-28] MEDS: RANITIDINE HCL 150 MG/10 ML UNIT-DOSE CUP PO SCH ×2 (10:12→22:21)
[2016-09-28] MEDS: amLODIPine BESYLATE 10 MG TABLET (FP) GT SCH (10:12)
[2016-09-28] MEDS: LACTOBACILLUS ACIDOPHILUS 1 EACH TAB (FP) PO SCH (10:12)
[2016-09-28] MEDS: METOPROLOL TARTRATE 50 MG TABLET (FP) GT SCH ×2 (10:13→22:21)
[2016-09-28] MEDS: MULTIVIT-MINERALS 236 ML ML GT SCH (10:13)
[2016-09-28] MEDS: BACITRACIN 15 GM TUBE TOPICAL OINTMENT TP SCH (10:13)
[2016-09-28] MEDS: AMINO ACIDS/PROTEIN HYDROLYS SUGAR-FREE 30 ML PACKET PO SCH (10:14)
[2016-09-28] MEDS: SIMETHICONE 40 MG/0.6 ML BOTTLE PEG SCH (10:14)
--- NOTE | 2016-09-28 13:02 | PN ---
Physical Exam: SUBJECTIVE: Patient seen and examined. No acute changes, fevers improving OBJECTIVE: Vital Signs Period Temp Pulse Resp BP Sys/Santiago Pulse Ox Last 24 Hr 99 F-99.7 F 68-88 18-20 136-146/79-80 96 PE Neuro: non verbal, eyes open HEENT: trach hole w/ dressing CDI Pulm: CTAB CV: s1 s2 rrr no mrg Abd: Peg tube CDI soft abd Ext: warm, +DP pulses Skin: x2 buttock ulcers Laboratory Results - last 24 hr 09/21/16 09/27/16 09/27/16 18:40 13:34 18:16 POC Glucometer 197 122 Stool Sodium Cancelled Stool Potassium Cancelled Stool Chloride Cancelled 09/27/16 09/28/16 22:31 04:56 POC Glucometer 173 190 Stool Sodium Stool Potassium Stool Chloride Active Medications Generic Name Dose Route Start Last Admin Trade Name Freq PRN Reason Stop Dose Admin Acetaminophen 650 mg 05/26/16 14:23 09/27/16 22:33 Tylenol Oral Solution - GT 650 mg Q4H PRN Administration FEVER Amino Acids 30 ml 06/28/16 10:00 09/28/16 10:14 Prostat Sugar-Free Packet - PO 30 ml DAILY KWAKU Administration Amlodipine Besylate 10 mg 12/30/15 10:00 09/28/16 10:12 Norvasc - GT 10 mg DAILY KWAKU Administration Bacitracin 1 applic 08/09/16 16:15 09/28/16 10:13 Bacitracin - TP 1 applic DAILY KWAKU Administration Guaifenesin 10 ml 12/29/15 10:43 08/02/16 10:38 Robitussin Dm - PO 10 ml Q6H PRN Administration COUGH Insulin Aspart 1 vial 09/17/16 16:30 09/28/16 06:50 Novolog Vial Sliding Scale - SQ 4 units ACHS KWAKU Administration Protocol Insulin Detemir 20 units 09/21/16 13:25 09/27/16 22:32 Levemir Vial SQ 20 units HS KWAKU Administration Lactobacillus Acidophilus 1 tab 12/30/15 10:00 09/28/16 10:12 Bacid - PO 1 tab DAILY KWAKU Administration Lisinopril 40 mg 12/30/15 10:00 09/28/16 10:12 Prinivil GT 40 mg DAILY KWAKU Administration Metoprolol Tartrate 150 mg 12/29/15 22:00 09/28/16 10:13 Lopressor - GT 150 mg BID KWAKU Administration Metoprolol Tartrate 5 mg 12/29/15 10:43 Lopressor Injection - IVPB Q6H PRN HYPERTENSION Ranitidine HCl 150 mg 08/27/16 12:15 09/28/16 10:12 Zantac Oral Solution - PO 150 mg BID KWAKU Administration Scopolamine HBr 1 patch 05/20/16 15:45 09/26/16 18:30 Transderm-Scop - TD 1 patch Q72H KWAKU Administration Simethicone 40 mg 08/25/16 10:00 09/28/16 10:14 Mylicon Liquid - PEG 40 mg DAILY KWAKU Administration Assessment: 75 year old male with PMHx of HTN, IDDM, inguinal hernia who presented to the ED with diverticular bleed s/p Righ hemicolectomy with hospital course complicated 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 Plan: 1. Fevers, diarrhea - Afebrile - Will monitor off abx, if fever increases >101 will re call ID - DVT dopplers last week negative 2. Anoxic brain injury s/p brainstem CVAs - Mental status unchanged 3. Respiratory failure secondary to anoxic brain injury - Cont O2 via room air, NC when needed - Duonebs PRN 4. HTN - Continue lisinopril, amlodipine, lopressor 5. Multiple pressure ulcers - Turn and position q2h 6. IDDM - AM sugar controlled - Levemir at 18u sq qhs - ISS BGM ACHS 7. Nutrition - Hypernatremia improving - 70 ml/hr Glucerna 1.5, 65 ml/hr water flushes - Prostat daily - Zantac BID - BMP in AM 8. Prophylaxis: - SCDs bilaterally - No chemical AC 2/2 spontaneous gluteal bleed and severe GI bleed - Functional quadriplegia CODE STATUS: DNR Visit type - Emergency Visit Emergency Visit: Yes ED Registration Date: 06/27/15 Care time: The patient presented to the Emergency Department on the above date and was hospitalized for further evaluation of their emergent condition. - New Patient This patient is new to me today: No - Critical Care Critical Care patient: No - Discharge Referral Referred to [facility] Med P.C.: No
[2016-09-28] MEDS: INSULIN DETEMIR 100 UNITS/ML MDV SQ SCH (22:21)
[2016-09-28] MEDS: ACETAMINOPHEN 650 MG/20.3 ML ORAL SOLUTION (CUPS) GT PRN (22:22)
[2016-09-29] MEDS: INSULIN SLIDING SCALE (NOVOLOG) 1 VIAL SQ SCH ×4 (06:08→23:25)
--- NOTE | 2016-09-29 09:22 | PN ---
Progress Note (short form) - Note Progress Note: Subjective: The patient was seen and examined at the bedside, non-verbal. Tolerating room air well Current Medications Generic Name Dose Route Start Last Admin Trade Name Freq PRN Reason Stop Dose Admin Acetaminophen 650 mg 05/26/16 14:23 09/28/16 22:22 Tylenol Oral Solution - GT 650 mg Q4H PRN Administration FEVER Amino Acids 30 ml 06/28/16 10:00 09/28/16 10:14 Prostat Sugar-Free Packet - PO 30 ml DAILY KWAKU Administration Amlodipine Besylate 10 mg 12/30/15 10:00 09/28/16 10:12 Norvasc - GT 10 mg DAILY KWAKU Administration Bacitracin 1 applic 08/09/16 16:15 09/28/16 10:13 Bacitracin - TP 1 applic DAILY KWAKU Administration Guaifenesin 10 ml 12/29/15 10:43 08/02/16 10:38 Robitussin Dm - PO 10 ml Q6H PRN Administration COUGH Insulin Aspart 1 vial 09/17/16 16:30 09/29/16 06:08 Novolog Vial Sliding Scale - SQ 4 units ACHS KWAKU Administration Protocol Insulin Detemir 20 units 09/21/16 13:25 09/28/16 22:21 Levemir Vial SQ 20 units HS KWAKU Administration Lactobacillus Acidophilus 1 tab 12/30/15 10:00 09/28/16 10:12 Bacid - PO 1 tab DAILY KWAKU Administration Lisinopril 40 mg 12/30/15 10:00 09/28/16 10:12 Prinivil GT 40 mg DAILY KWAKU Administration Metoprolol Tartrate 150 mg 12/29/15 22:00 09/28/16 22:21 Lopressor - GT 150 mg BID KWAKU Administration Metoprolol Tartrate 5 mg 12/29/15 10:43 Lopressor Injection - IVPB Q6H PRN HYPERTENSION Ranitidine HCl 150 mg 08/27/16 12:15 09/28/16 22:21 Zantac Oral Solution - PO 150 mg BID KWAKU Administration Scopolamine HBr 1 patch 05/20/16 15:45 09/26/16 18:30 Transderm-Scop - TD 1 patch Q72H KWAKU Administration Simethicone 40 mg 08/25/16 10:00 09/28/16 10:14 Mylicon Liquid - PEG 40 mg DAILY KWAKU Administration Objective: Vital Signs Period Temp Pulse Resp BP Sys/Santiago Pulse Ox Last 24 Hr 98.3 F-99.5 F 78-104 18-20 123-158/72-85 98 Physical Exam: General: No acute distress, tracking with eyes today HEENT: Gauze dressing to anterior neck, c/d/i Neuro: Eye tracking to verbal stimulus Pulm: CTA anteriorly CV: RRR, S1S2 Abd: Soft, non-distended. Normoactive bowel sounds. Peg tube c/d/i Ext: Warm, well-perfused. 2+ DP/PT bilaterally Skin: Right buttock ulcers x2 CBCD WBC 9.1 K/mm3 (4.0-10.0) D 09/25/16 05:35 RBC 3.93 M/mm3 (4.00-5.60) L 09/25/16 05:35 Hgb 11.7 GM/dL (11.7-16.9) 09/25/16 05:35 Hct 34.9 % (35.4-49) L 09/25/16 05:35 MCV 88.7 fl (80-96) 09/25/16 05:35 MCHC 33.6 g/dl (32.0-35.9) 09/25/16 05:35 RDW 16.3 % (11.9-15.9) H 09/25/16 05:35 Plt Count 78 K/MM3 (134-434) L D 09/25/16 05:35 MPV 11.3 fl (7.5-11.1) H 09/25/16 05:35 CMP Sodium 149 mmol/L (136-145) H 09/26/16 06:00 Potassium 3.5 mmol/L (3.5-5.1) 09/26/16 06:00 Chloride 112 mmol/L (98-107) H 09/26/16 06:00 Carbon Dioxide 27 mmol/L (21-32) 09/26/16 06:00 Anion Gap 10 (8-16) 09/26/16 06:00 BUN 22 mg/dL (7-18) H 09/26/16 06:00 Creatinine 0.7 mg/dL (0.7-1.3) 09/26/16 06:00 Creat Clearance w eGFR > 60 (>60) 09/25/16 07:30 Random Glucose 173 mg/dL (74-106) H 09/26/16 06:00 Calcium 8.8 mg/dL (8.5-10.1) 09/26/16 06:00 Total Bilirubin 0.3 mg/dL (0.2-1.0) D 09/25/16 07:30 AST 29 U/L (15-37) D 09/25/16 07:30 ALT 50 U/L (12-78) D 09/25/16 07:30 Alkaline Phosphatase 120 U/L (45-117) H 09/25/16 07:30 Total Protein 7.3 g/dl (6.4-8.2) 09/25/16 07:30 Albumin 3.0 g/dl (3.4-5.0) L 09/25/16 07:30 CARDIAC ENZYMES Creatine Kinase 62 IU/L (38-174) 06/28/15 09:35 Troponin I 0.07 ng/ml (0.03-0.5) D 07/09/15 05:00 Assessment: 75 year old male with PMHx of HTN, IDDM, inguinal hernia who presented to the ED with diverticular bleed s/p Righ hemicolectomy with 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 Plan: 1. ID: Fevers, diarrhea - Afebrile - WBC wnl - C.diff negative - Urine culture 09/20 with Enterococcus faecium and diphtheroid/corynebacterium 2. Anoxic brain injury s/p brainstem CVAs - Mental status unchanged 3. Respiratory failure secondary to anoxic brain injury - Cont O2 via room air, NC when needed - Trach removed 09/09/16 - Duonebs PRN 4. HTN - Continue lisinopril, amlodipine, lopressor 5. Multiple pressure ulcers - Turn and position q2h 6. IDDM - Continue Levemir at 18u sq qhs - ISS BGM ACHS 7. F/E/N: - Hypernatremia improving - 70 ml/hr Glucerna 1.5, 65 ml/hr water flushes - Prostat daily - Continue Zantac bid 8. Prophylaxis: - SCDs bilaterally (lower extremity doppler negative for DVTs 09/20/16) - No chemical anticoagulation 2/2 spontaneous gluteal bleed and severe GI bleed - Functional quadriplegia CODE STATUS: DNR Visit type - Emergency Visit Emergency Visit: Yes ED Registration Date: 06/27/15 Care time: The patient presented to the Emergency Department on the above date and was hospitalized for further evaluation of their emergent condition. - New Patient This patient is new to me today: No - Critical Care Critical Care patient: No
[2016-09-29 09:52] LABS: CALCIUM 9.6 mg/dL (8.5-10.1); CREATININE 0.6 mg/dL (0.7-1.3)
[2016-09-29] MEDS: LACTOBACILLUS ACIDOPHILUS 1 EACH TAB (FP) PO SCH (12:55)
[2016-09-29] MEDS: LISINOPRIL 20 MG TABLET (FP) GT SCH (12:55)
[2016-09-29] MEDS: RANITIDINE HCL 150 MG/10 ML UNIT-DOSE CUP PO SCH ×2 (12:55→23:25)
[2016-09-29] MEDS: SIMETHICONE 40 MG/0.6 ML BOTTLE PEG SCH (12:56)
[2016-09-29] MEDS: amLODIPine BESYLATE 10 MG TABLET (FP) GT SCH (12:56)
[2016-09-29] MEDS: METOPROLOL TARTRATE 50 MG TABLET (FP) GT SCH ×2 (12:56→23:26)
[2016-09-29] MEDS: AMINO ACIDS/PROTEIN HYDROLYS SUGAR-FREE 30 ML PACKET PO SCH (12:57)
[2016-09-29] MEDS: MULTIVIT-MINERALS 236 ML ML GT SCH (12:57)
[2016-09-29] MEDS: BACITRACIN 15 GM TUBE TOPICAL OINTMENT TP SCH (12:57)
[2016-09-29] MEDS: SCOPOLAMINE HYDROBROMIDE 1 PATCH PATCH.TD72 TD SCH (15:06)
[2016-09-29] MEDS: INSULIN DETEMIR 100 UNITS/ML MDV SQ SCH (23:24)
[2016-09-29] MEDS: ACETAMINOPHEN 650 MG/20.3 ML ORAL SOLUTION (CUPS) GT PRN (23:26)
[2016-09-30] MEDS: INSULIN SLIDING SCALE (NOVOLOG) 1 VIAL SQ SCH ×4 (07:01→23:10)
[2016-09-30] MEDS: LACTOBACILLUS ACIDOPHILUS 1 EACH TAB (FP) PO SCH (10:43)
[2016-09-30] MEDS: LISINOPRIL 20 MG TABLET (FP) GT SCH (10:43)
[2016-09-30] MEDS: RANITIDINE HCL 150 MG/10 ML UNIT-DOSE CUP PO SCH ×2 (10:43→22:26)
[2016-09-30] MEDS: amLODIPine BESYLATE 10 MG TABLET (FP) GT SCH (10:43)
[2016-09-30] MEDS: METOPROLOL TARTRATE 50 MG TABLET (FP) GT SCH ×2 (10:44→22:25)
[2016-09-30] MEDS: SIMETHICONE 40 MG/0.6 ML BOTTLE PEG SCH (10:44)
[2016-09-30] MEDS: BACITRACIN 15 GM TUBE TOPICAL OINTMENT TP SCH (10:44)
[2016-09-30] MEDS: MULTIVIT-MINERALS 236 ML ML GT SCH (10:44)
[2016-09-30] MEDS: AMINO ACIDS/PROTEIN HYDROLYS SUGAR-FREE 30 ML PACKET PO SCH (10:45)
--- NOTE | 2016-09-30 13:26 | PN ---
Physical Exam: SUBJECTIVE: Patient seen and examined. He was awake, appears comfortable. Non verbal at baseline. Tolerating room air. OBJECTIVE: GENERAL: appears comfortable at rest, Tolerating feeds HEAD: Normal with no signs of trauma NECK: Trach removed, site is c/d/i, no redness or drainage noted. LUNGS: Scattered rhonchi auscultated anteriorly HEART: Regular rate and rhythm, heart rate 71 ABDOMEN: peg tube LUQ - on Jevity feeds with water flushes NEUROLOGICAL: at baseline, opens eyes intermittently. Vital Signs Period Temp Pulse Resp BP Sys/Santiago Pulse Ox Last 24 Hr 98 F-99.4 F 68-86 16-18 131-153/70-90 98 Laboratory Results - last 24 hr 09/29/16 09/29/16 09/29/16 14:12 16:10 23:23 POC Glucometer 163 147 142 09/30/16 09/30/16 06:59 12:10 POC Glucometer 166 186 Active Medications Generic Name Dose Route Start Last Admin Trade Name Freq PRN Reason Stop Dose Admin Acetaminophen 650 mg 05/26/16 14:23 09/29/16 23:26 Tylenol Oral Solution - GT 650 mg Q4H PRN Administration FEVER Amino Acids 30 ml 06/28/16 10:00 09/30/16 10:45 Prostat Sugar-Free Packet - PO 30 ml DAILY KWAKU Administration Amlodipine Besylate 10 mg 12/30/15 10:00 09/30/16 10:43 Norvasc - GT 10 mg DAILY KWAKU Administration Bacitracin 1 applic 08/09/16 16:15 09/30/16 10:44 Bacitracin - TP 1 applic DAILY KWAKU Administration Guaifenesin 10 ml 12/29/15 10:43 08/02/16 10:38 Robitussin Dm - PO 10 ml Q6H PRN Administration COUGH Insulin Aspart 1 vial 09/17/16 16:30 09/30/16 12:25 Novolog Vial Sliding Scale - SQ 4 units ACHS KWAKU Administration Protocol Insulin Detemir 20 units 09/21/16 13:25 09/29/16 23:24 Levemir Vial SQ 20 units HS KWAKU Administration Lactobacillus Acidophilus 1 tab 12/30/15 10:00 09/30/16 10:43 Bacid - PO 1 tab DAILY KWAKU Administration Lisinopril 40 mg 12/30/15 10:00 09/30/16 10:43 Prinivil GT 40 mg DAILY KWAKU Administration Metoprolol Tartrate 150 mg 12/29/15 22:00 09/30/16 10:44 Lopressor - GT 150 mg BID KWAKU Administration Metoprolol Tartrate 5 mg 12/29/15 10:43 Lopressor Injection - IVPB Q6H PRN HYPERTENSION Ranitidine HCl 150 mg 08/27/16 12:15 09/30/16 10:43 Zantac Oral Solution - PO 150 mg BID KWAKU Administration Scopolamine HBr 1 patch 05/20/16 15:45 09/29/16 15:06 Transderm-Scop - TD 1 patch Q72H KWAKU Administration Simethicone 40 mg 08/25/16 10:00 09/30/16 10:44 Mylicon Liquid - PEG 40 mg DAILY KWAKU Administration ASSESSMENT/PLAN: Patient is a 76 year old male with a past medical history of IDDM, HTN and inguinal hernia. He presented to the emergency room on 06/27/2015 with a diverticular bleed s/p right hemicolectomy. His hospitalization was further complicated with a CVA with anoxic brain injury. He is s/p trach secondary to respiratory failure. ID: Fevers - resolved Plan: Monitor off antibiotics, no fevers since 09/27/2016. WBC within in normal limits. He is negative for c.diff. GI: Aspiration Precautions - chronic Plan: HOB elevated at all times due to high aspiration risk - on continuous tube feeds of Glucerna Cardiovascular: Hypertension - chronic Plan: Controlled on Lisinopril, Norvasc and Lopressor Neurology: Anoxic brain injury s/p brainstem CVAs - chronic Plan: Mental status at baseline - non verbal - opens eyes continue to monitor for any acute changes Pulmonary: Respiratory Failure - chronic Plan: Tolerating room air Has respiratory failure secondary to anoxic brain injury. He is on duonebs PRN, Trach collar removed on 09/09/2016 - site is c/d/i. Fluid/Electrolytes: Hypernatremia - improving Plan: Monitor with labs Endocrine: Diabetes - chronic Plan: BGMs improving with the increased Levemir. Tight control of sliding scale capillary glucose ac/hs F.E.N. NPO Glucerna 70cc/hr with water flushes and 250cc free water BID Prostat for treatment of pressure ulcers Functional Quadraplegia Prophylaxis: DVT: SCDs - both legs. No AC: contraindicated secondary to GI bleed GI Regimen: Ranitidine BID Bowel regimen: deferred, having soft stools He is bed bound and a total care Code Status: Patient continues to require inpatient hospitalization. DNR Visit type - Emergency Visit Emergency Visit: Yes ED Registration Date: 06/27/15 Care time: The patient presented to the Emergency Department on the above date and was hospitalized for further evaluation of their emergent condition. - New Patient This patient is new to me today: No - Critical Care Critical Care patient: No - Discharge Referral Referred to [facility] Med P.C.: No
[2016-09-30] MEDS: ACETAMINOPHEN 650 MG/20.3 ML ORAL SOLUTION (CUPS) GT PRN (22:25)
[2016-09-30] MEDS: INSULIN DETEMIR 100 UNITS/ML MDV SQ SCH (23:09)
[2016-10-01] MEDS: INSULIN SLIDING SCALE (NOVOLOG) 1 VIAL SQ SCH ×3 (06:43→22:37)
[2016-10-01] MEDS: LACTOBACILLUS ACIDOPHILUS 1 EACH TAB (FP) PO SCH (11:53)
[2016-10-01] MEDS: BACITRACIN 15 GM TUBE TOPICAL OINTMENT TP SCH (11:53)
[2016-10-01] MEDS: MULTIVIT-MINERALS 236 ML ML GT SCH (11:54)
[2016-10-01] MEDS: RANITIDINE HCL 150 MG/10 ML UNIT-DOSE CUP PO SCH ×2 (11:56→22:36)
[2016-10-01] MEDS: SIMETHICONE 40 MG/0.6 ML BOTTLE PEG SCH (11:56)
[2016-10-01] MEDS: AMINO ACIDS/PROTEIN HYDROLYS SUGAR-FREE 30 ML PACKET PO SCH (11:56)
[2016-10-01] MEDS: amLODIPine BESYLATE 10 MG TABLET (FP) GT SCH (11:56)
[2016-10-01] MEDS: LISINOPRIL 20 MG TABLET (FP) GT SCH (11:56)
[2016-10-01] MEDS: METOPROLOL TARTRATE 50 MG TABLET (FP) GT SCH ×2 (11:57→22:36)
--- NOTE | 2016-10-01 14:29 | PN ---
Physical Exam: SUBJECTIVE: Patient seen and examined. He is non verbal at baseline. Tolerating room air. OBJECTIVE: GENERAL: appears comfortable at rest, Tolerating feeds HEAD: Normal with no signs of trauma NECK: Trach removed, site is c/d/i, no redness or drainage noted. LUNGS: Scattered rhonchi auscultated anteriorly HEART: Regular rate and rhythm, heart rate 80s ABDOMEN: peg tube LUQ - on Jevity feeds with water flushes NEUROLOGICAL: at baseline, opens eyes intermittently. Vital Signs Period Temp Pulse Resp BP Sys/Santiago Pulse Ox Last 24 Hr 98.2 F-101.5 F 69-84 18-20 131-144/80-88 95-96 Laboratory Results - last 24 hr 09/30/16 10/01/16 22:55 06:40 POC Glucometer 141 170 Active Medications Generic Name Dose Route Start Last Admin Trade Name Freq PRN Reason Stop Dose Admin Acetaminophen 650 mg 05/26/16 14:23 09/30/16 22:25 Tylenol Oral Solution - GT 650 mg Q4H PRN Administration FEVER Amino Acids 30 ml 06/28/16 10:00 10/01/16 11:56 Prostat Sugar-Free Packet - PO 30 ml DAILY KWAKU Administration Amlodipine Besylate 10 mg 12/30/15 10:00 10/01/16 11:56 Norvasc - GT 10 mg DAILY KWAKU Administration Bacitracin 1 applic 08/09/16 16:15 10/01/16 11:53 Bacitracin - TP 1 applic DAILY KWAKU Administration Guaifenesin 10 ml 12/29/15 10:43 08/02/16 10:38 Robitussin Dm - PO 10 ml Q6H PRN Administration COUGH Insulin Aspart 1 vial 09/17/16 16:30 10/01/16 06:43 Novolog Vial Sliding Scale - SQ 4 units ACHS KWAKU Administration Protocol Insulin Detemir 20 units 09/21/16 13:25 09/30/16 23:09 Levemir Vial SQ 20 units HS KWAKU Administration Lactobacillus Acidophilus 1 tab 12/30/15 10:00 10/01/16 11:53 Bacid - PO 1 tab DAILY KWAKU Administration Lisinopril 40 mg 12/30/15 10:00 10/01/16 11:56 Prinivil GT 40 mg DAILY KWAKU Administration Metoprolol Tartrate 150 mg 12/29/15 22:00 10/01/16 11:57 Lopressor - GT 150 mg BID KWAKU Administration Metoprolol Tartrate 5 mg 12/29/15 10:43 Lopressor Injection - IVPB Q6H PRN HYPERTENSION Ranitidine HCl 150 mg 08/27/16 12:15 10/01/16 11:56 Zantac Oral Solution - PO 150 mg BID KWAKU Administration Scopolamine HBr 1 patch 05/20/16 15:45 09/29/16 15:06 Transderm-Scop - TD 1 patch Q72H KWAKU Administration Simethicone 40 mg 08/25/16 10:00 10/01/16 11:56 Mylicon Liquid - PEG 40 mg DAILY KWAKU Administration ASSESSMENT/PLAN: Patient is a 76 year old male with a past medical history of IDDM, HTN and inguinal hernia. He presented to the emergency room on 06/27/2015 with a diverticular bleed s/p right hemicolectomy. His hospitalization was further complicated with a CVA with anoxic brain injury. He is s/p trach secondary to respiratory failure. ID: Fevers - Tmax 101.5 yesterday Plan: Monitor off antibiotics Repeat labs tomorrow, blood cultures sent GI: Aspiration Precautions - chronic Plan: HOB elevated at all times due to high aspiration risk - on continuous tube feeds of Glucerna Cardiovascular: Hypertension - chronic Plan: Controlled on Lisinopril, Norvasc and Lopressor Neurology: Anoxic brain injury s/p brainstem CVAs - chronic Plan: Mental status at baseline - non verbal - opens eyes continue to monitor for any acute changes Pulmonary: Respiratory Failure - chronic Plan: Tolerating room air Has respiratory failure secondary to anoxic brain injury. He is on duonebs PRN, Trach collar removed on 09/09/2016 - site is c/d/i. Fluid/Electrolytes: Hypernatremia - improving Plan: Monitor with labs Endocrine: Diabetes - chronic Plan: BGMs improving with the increased Levemir. Tight control of sliding scale capillary glucose ac/hs F.E.N. NPO Glucerna 70cc/hr with water flushes and 250cc free water BID Prostat for treatment of pressure ulcers Functional Quadraplegia Prophylaxis: DVT: SCDs - both legs. No AC: contraindicated secondary to GI bleed GI Regimen: Ranitidine BID Bowel regimen: deferred, having soft stools He is bed bound and a total care Code Status: Patient continues to require inpatient hospitalization. DNR Visit type - Emergency Visit Emergency Visit: Yes ED Registration Date: 06/27/15 Care time: The patient presented to the Emergency Department on the above date and was hospitalized for further evaluation of their emergent condition. - New Patient This patient is new to me today: No - Critical Care Critical Care patient: No - Discharge Referral Referred to [facility] Med P.C.: No
[2016-10-01] MEDS: ACETAMINOPHEN 650 MG/20.3 ML ORAL SOLUTION (CUPS) GT PRN (22:36)
[2016-10-01] MEDS: INSULIN DETEMIR 100 UNITS/ML MDV SQ SCH (22:38)
[2016-10-02] MEDS: INSULIN SLIDING SCALE (NOVOLOG) 1 VIAL SQ SCH ×5 (06:08→23:18)
[2016-10-02 08:07] LABS: BASOPHIL 0.5 % (0-2.0); EOSINOPHIL 3.7 % (0-4.5); MCH 29.4 pg (25.7-33.7); MCHC 33.3 g/dl (32.0-35.9); MEAN CELL VOLUME 88.3 fl (80-96); MEAN PLT VOLUME 10.4 fl (7.5-11.1); NEUTROPHILS 63.3 % (42.8-82.8); PLATELET COUNT 149 K/MM3 (134-434); WHITE BLOOD COUNT 7.7 K/mm3 (4.0-10.0)
[2016-10-02 08:27] LABS: ALBUMIN 3.1 g/dl (3.4-5.0); ANION GAP 8 (8-16); CALCIUM 9.4 mg/dL (8.5-10.1); CO2 28 mmol/L (21-32); GLUCOSE,RANDOM 118 mg/dL (74-106); SGOT/AST 18 U/L (15-37); SGPT/ALT 50 U/L (12-78)
[2016-10-02 08:29] LABS: ALK PHOS 131 U/L (45-117); BILIRUBIN,TOTAL 0.3 mg/dL (0.2-1.0); CREATININE 0.6 mg/dL (0.7-1.3); TOT PROT 7.4 g/dl (6.4-8.2)
[2016-10-02] MEDS: METOPROLOL TARTRATE 50 MG TABLET (FP) GT SCH ×2 (10:00→23:07)
[2016-10-02] MEDS: LISINOPRIL 20 MG TABLET (FP) GT SCH (11:42)
[2016-10-02] MEDS: amLODIPine BESYLATE 10 MG TABLET (FP) GT SCH (11:43)
[2016-10-02] MEDS: AMINO ACIDS/PROTEIN HYDROLYS SUGAR-FREE 30 ML PACKET PO SCH (11:44)
[2016-10-02] MEDS: RANITIDINE HCL 150 MG/10 ML UNIT-DOSE CUP PO SCH ×2 (11:44→23:08)
[2016-10-02] MEDS: MULTIVIT-MINERALS 236 ML ML GT SCH (11:45)
[2016-10-02] MEDS: SIMETHICONE 40 MG/0.6 ML BOTTLE PEG SCH (11:45)
[2016-10-02] MEDS: LACTOBACILLUS ACIDOPHILUS 1 EACH TAB (FP) PO SCH (11:46)
[2016-10-02] MEDS: BACITRACIN 15 GM TUBE TOPICAL OINTMENT TP SCH (11:46)
--- NOTE | 2016-10-02 15:34 | PN ---
Physical Exam: SUBJECTIVE: Patient seen and examined. He appears comfortable at rest, in no acute distress. He appears at his baseline, tolerating room air. Vitals are stable, no fevers. Tolerating tube feeds. OBJECTIVE: GENERAL: appears comfortable at rest, Tolerating feeds HEAD: Normal with no signs of trauma NECK: Trach removed, site is c/d/i, no redness or drainage noted. LUNGS: Scattered rhonchi auscultated anteriorly HEART: Regular rate and rhythm, heart rate 80s ABDOMEN: peg tube LUQ - on Jevity feeds with water flushes NEUROLOGICAL: at baseline, opens eyes intermittently. Vital Signs Period Temp Pulse Resp BP Sys/Santiago Pulse Ox Last 24 Hr 98.7 F-100.3 F 75-88 18-20 130-144/81-91 95-96 Laboratory Results - last 24 hr 10/01/16 10/02/16 10/02/16 22:32 05:33 07:30 WBC 7.7 RBC 3.63 L Hgb 10.7 L Hct 32.1 L MCV 88.3 MCHC 33.3 RDW 17.0 H Plt Count 149 D MPV 10.4 Neutrophils % 63.3 Lymphocytes % 25.6 Monocytes % 6.9 Eosinophils % 3.7 Basophils % 0.5 Sodium Potassium Chloride Carbon Dioxide Anion Gap BUN Creatinine Creat Clearance w eGFR POC Glucometer 166 166 Random Glucose Calcium Total Bilirubin AST ALT Alkaline Phosphatase Total Protein Albumin 10/02/16 10/02/16 07:30 13:13 WBC RBC Hgb Hct MCV MCHC RDW Plt Count MPV Neutrophils % Lymphocytes % Monocytes % Eosinophils % Basophils % Sodium 144 Potassium 3.5 Chloride 108 H Carbon Dioxide 28 Anion Gap 8 BUN 21 H Creatinine 0.6 L Creat Clearance w eGFR > 60 POC Glucometer 192 Random Glucose 118 H Calcium 9.4 Total Bilirubin 0.3 AST 18 D ALT 50 Alkaline Phosphatase 131 H Total Protein 7.4 Albumin 3.1 L Active Medications Generic Name Dose Route Start Last Admin Trade Name Freq PRN Reason Stop Dose Admin Acetaminophen 650 mg 05/26/16 14:23 10/01/16 22:36 Tylenol Oral Solution - GT 650 mg Q4H PRN Administration FEVER Amino Acids 30 ml 06/28/16 10:00 10/02/16 11:44 Prostat Sugar-Free Packet - PO 30 ml DAILY KWAKU Administration Amlodipine Besylate 10 mg 12/30/15 10:00 10/02/16 11:43 Norvasc - GT 10 mg DAILY KWAKU Administration Bacitracin 1 applic 08/09/16 16:15 10/02/16 11:46 Bacitracin - TP 1 applic DAILY KWAKU Administration Guaifenesin 10 ml 12/29/15 10:43 08/02/16 10:38 Robitussin Dm - PO 10 ml Q6H PRN Administration COUGH Insulin Aspart 1 vial 09/17/16 16:30 10/02/16 13:18 Novolog Vial Sliding Scale - SQ 4 units ACHS KWAKU Administration Protocol Insulin Detemir 20 units 09/21/16 13:25 10/01/16 22:38 Levemir Vial SQ 20 units HS KWAKU Administration Lactobacillus Acidophilus 1 tab 12/30/15 10:00 10/02/16 11:46 Bacid - PO 1 tab DAILY KWAKU Administration Lisinopril 40 mg 12/30/15 10:00 10/02/16 11:42 Prinivil GT 40 mg DAILY KWAKU Administration Metoprolol Tartrate 150 mg 12/29/15 22:00 10/02/16 10:00 Lopressor - GT 150 mg BID KWAKU Administration Metoprolol Tartrate 5 mg 12/29/15 10:43 Lopressor Injection - IVPB Q6H PRN HYPERTENSION Ranitidine HCl 150 mg 08/27/16 12:15 10/02/16 11:44 Zantac Oral Solution - PO 150 mg BID KWAKU Administration Scopolamine HBr 1 patch 05/20/16 15:45 09/29/16 15:06 Transderm-Scop - TD 1 patch Q72H KWAKU Administration Simethicone 40 mg 08/25/16 10:00 10/02/16 11:45 Mylicon Liquid - PEG 40 mg DAILY KWAKU Administration ASSESSMENT/PLAN: Patient is a 76 year old male with a past medical history of IDDM, HTN and inguinal hernia. He presented to the emergency room on 06/27/2015 with a diverticular bleed s/p right hemicolectomy. His hospitalization was further complicated with a CVA with anoxic brain injury. He is s/p trach secondary to respiratory failure. ID: Fevers - acute Assessment/Plan: Tmax 101.5 on 09/30, having low grade fevers. Continue to monitor vitals for now. His WBC is within normal limits. Plan: Monitor off antibiotics. Both Urine culture and blood cultures are pending. Will reconsult ID as needed GI: Aspiration Precautions - chronic Assessment/Plan: Tolerating tube feeds. 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 Continue to monitor for any acute changes Pulmonary: Respiratory Failure - chronic Assessment/Plan: Tolerating room air. Has respiratory failure secondary to anoxic brain injury. He is on duonebs PRN, Trach collar removed on 09/09/2016 - site with sterile dressing. Monitor for any signs of drainage or redness Endocrine: Diabetes - chronic Assessment/Plan: BGMs improving with the increased Levemir. Tighter control of sliding scale. Capillary glucose ac/hs F.E.N. NPO Glucerna 70cc/hr with water flushes and 250cc free water BID Prostat for treatment of pressure ulcers Functional Quadraplegia BMP within normal limits Prophylaxis: DVT: SCDs - both legs. No AC: contraindicated secondary to history of GI bleed GI Regimen: Ranitidine BID Bowel regimen: deferred, having soft stools He is bed bound and a total care Code Status: Patient continues to require inpatient hospitalization. DNR Visit type - Emergency Visit Emergency Visit: Yes ED Registration Date: 06/27/15 Care time: The patient presented to the Emergency Department on the above date and was hospitalized for further evaluation of their emergent condition. - New Patient This patient is new to me today: No - Critical Care Critical Care patient: No - Discharge Referral Referred to [facility] Med P[facility]C.: No
[2016-10-02] MEDS: SCOPOLAMINE HYDROBROMIDE 1 PATCH PATCH.TD72 TD SCH (17:52)
[2016-10-02 19:36] LABS: ALBUMIN 3.2 g/dl (3.4-5.0); ANION GAP 8 (8-16); BILIRUBIN,TOTAL 0.4 mg/dL (0.2-1.0); CALCIUM 9.7 mg/dL (8.5-10.1); CO2 28 mmol/L (21-32); CREATININE 0.7 mg/dL (0.7-1.3); GLUCOSE,RANDOM 194 mg/dL (74-106); MAGNESIUM 2.3 mg/dL (1.8-2.4); SGOT/AST 23 U/L (15-37); SGPT/ALT 50 U/L (12-78); TOT PROT 7.6 g/dl (6.4-8.2)
[2016-10-02 19:37] LABS: ALK PHOS 136 U/L (45-117)
[2016-10-02] MEDS: INSULIN DETEMIR 100 UNITS/ML MDV SQ SCH (23:15)
[2016-10-03] MEDS: INSULIN SLIDING SCALE (NOVOLOG) 1 VIAL SQ SCH ×4 (06:06→22:53)
[2016-10-03] MEDS: RANITIDINE HCL 150 MG/10 ML UNIT-DOSE CUP PO SCH ×2 (10:55→22:49)
[2016-10-03] MEDS: LISINOPRIL 20 MG TABLET (FP) GT SCH (10:55)
[2016-10-03] MEDS: METOPROLOL TARTRATE 50 MG TABLET (FP) GT SCH ×2 (10:56→22:49)
[2016-10-03] MEDS: AMINO ACIDS/PROTEIN HYDROLYS SUGAR-FREE 30 ML PACKET PO SCH (10:56)
[2016-10-03] MEDS: LACTOBACILLUS ACIDOPHILUS 1 EACH TAB (FP) PO SCH (10:56)
[2016-10-03] MEDS: SIMETHICONE 40 MG/0.6 ML BOTTLE PEG SCH (10:57)
[2016-10-03] MEDS: BACITRACIN 15 GM TUBE TOPICAL OINTMENT TP SCH (10:57)
[2016-10-03] MEDS: MULTIVIT-MINERALS 236 ML ML GT SCH (10:57)
[2016-10-03] MEDS: amLODIPine BESYLATE 10 MG TABLET (FP) GT SCH (10:58)
--- NOTE | 2016-10-03 14:25 | PN ---
Physical Exam: SUBJECTIVE: Patient seen and examined. He appears comfortable at rest, in no acute distress. Vitals are stable, no fevers. Tolerating tube feeds. OBJECTIVE: Vital Signs Period Temp Pulse Resp BP Sys/Santiago Pulse Ox Last 24 Hr 98.4 F-98.8 F 74-85 20-20 117-144/74-81 96 GENERAL: appears comfortable at rest, Tolerating feeds HEAD: Normal with no signs of trauma NECK: Trach removed, site is c/d/i, no redness or drainage noted. LUNGS: Scattered rhonchi auscultated anteriorly HEART: Regular rate and rhythm, heart rate 80s ABDOMEN: peg tube LUQ - on Jevity feeds with water flushes NEUROLOGICAL: at baseline, opens eyes intermittently. Laboratory Results - last 24 hr 10/02/16 10/02/16 10/02/16 17:43 18:00 23:10 Sodium 142 Potassium 3.9 Chloride 106 Carbon Dioxide 28 Anion Gap 8 BUN 23 H Creatinine 0.7 Creat Clearance w eGFR > 60 POC Glucometer 191 229 Random Glucose 194 H D Calcium 9.7 Magnesium 2.3 Total Bilirubin 0.4 D AST 23 D ALT 50 Alkaline Phosphatase 136 H Total Protein 7.6 Albumin 3.2 L 10/03/16 05:18 Sodium Potassium Chloride Carbon Dioxide Anion Gap BUN Creatinine Creat Clearance w eGFR POC Glucometer 236 Random Glucose Calcium Magnesium Total Bilirubin AST ALT Alkaline Phosphatase Total Protein Albumin Active Medications Generic Name Dose Route Start Last Admin Trade Name Freq PRN Reason Stop Dose Admin Acetaminophen 650 mg 05/26/16 14:23 10/01/16 22:36 Tylenol Oral Solution - GT 650 mg Q4H PRN Administration FEVER Amino Acids 30 ml 06/28/16 10:00 10/03/16 10:56 Prostat Sugar-Free Packet - PO 30 ml DAILY KWAKU Administration Amlodipine Besylate 10 mg 12/30/15 10:00 10/03/16 10:58 Norvasc - GT 10 mg DAILY KWAKU Administration Bacitracin 1 applic 08/09/16 16:15 10/03/16 10:57 Bacitracin - TP 1 applic DAILY KWAKU Administration Guaifenesin 10 ml 12/29/15 10:43 08/02/16 10:38 Robitussin Dm - PO 10 ml Q6H PRN Administration COUGH Insulin Aspart 1 vial 09/17/16 16:30 10/03/16 14:19 Novolog Vial Sliding Scale - SQ Not Given ACHS [facility] Protocol Insulin Detemir 20 units 09/21/16 13:25 10/02/16 23:15 Levemir Vial SQ 20 units HS KWAKU Administration Lactobacillus Acidophilus 1 tab 12/30/15 10:00 10/03/16 10:56 Bacid - PO 1 tab DAILY KWAKU Administration Lisinopril 40 mg 12/30/15 10:00 10/03/16 10:55 Prinivil GT 40 mg DAILY KWAKU Administration Metoprolol Tartrate 150 mg 12/29/15 22:00 10/03/16 10:56 Lopressor - GT 150 mg BID KWAKU Administration Metoprolol Tartrate 5 mg 12/29/15 10:43 Lopressor Injection - IVPB Q6H PRN HYPERTENSION Ranitidine HCl 150 mg 08/27/16 12:15 10/03/16 10:55 Zantac Oral Solution - PO 150 mg BID KWAKU Administration Scopolamine HBr 1 patch 05/20/16 15:45 10/02/16 17:52 Transderm-Scop - TD Not Given Q72H KWAKU Simethicone 40 mg 08/25/16 10:00 10/03/16 10:57 Mylicon Liquid - PEG 40 mg DAILY KWAKU Administration ASSESSMENT/PLAN: Patient is a 76 year old male with a past medical history of IDDM, HTN and inguinal hernia. He presented to the emergency room on 06/27/2015 with a diverticular bleed s/p right hemicolectomy. His hospitalization was further complicated with a CVA with anoxic brain injury. He is s/p trach secondary to respiratory failure. ID: Fevers - acute Assessment/Plan: Tmax 101.5 on 09/30. Still having low grade fevers. Continue to monitor for now. His WBC is within normal limits. Plan: Monitor off antibiotics. Urine culture contaminated, repeat ordered. Blood cultures 10/01/2016: Staph Coag Neg one 1 bottle, likely contaminant. Will reconsult ID as needed GI: Aspiration Precautions - chronic Assessment/Plan: Tolerating tube feeds. 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 Continue to monitor for any acute changes Pulmonary: Respiratory Failure - chronic Assessment/Plan: Tolerating room air. Has respiratory failure secondary to anoxic brain injury. He is on duonebs PRN, Trach collar removed on 09/09/2016 - site with sterile dressing. Monitor for any signs of drainage or redness Endocrine: Diabetes - chronic Assessment/Plan: BGMs improving with the increased Levemir. Tighter control of sliding scale. Capillary glucose ac/hs F.E.N. NPO Glucerna 70cc/hr with water flushes and 250cc free water BID Prostat for treatment of pressure ulcers Functional Quadraplegia BMP within normal limits Prophylaxis: DVT: SCDs - both legs. No AC: contraindicated secondary to history of GI bleed GI Regimen: Ranitidine BID Bowel regimen: deferred, having soft stools He is bed bound and a total care Code Status: Patient continues to require inpatient hospitalization. DNR Visit type - Emergency Visit Emergency Visit: Yes ED Registration Date: 06/27/15 Care time: The patient presented to the Emergency Department on the above date and was hospitalized for further evaluation of their emergent condition. - New Patient This patient is new to me today: No - Critical Care Critical Care patient: No - Discharge Referral Referred to [facility] Med P.C.: No
[2016-10-03] MEDS: INSULIN DETEMIR 100 UNITS/ML MDV SQ SCH (22:53)
[2016-10-04] MEDS: INSULIN SLIDING SCALE (NOVOLOG) 1 VIAL SQ SCH ×5 (06:24→21:52)
[2016-10-04] MEDS: BACITRACIN 15 GM TUBE TOPICAL OINTMENT TP SCH (11:33)
[2016-10-04] MEDS: LACTOBACILLUS ACIDOPHILUS 1 EACH TAB (FP) PO SCH (11:33)
[2016-10-04] MEDS: MULTIVIT-MINERALS 236 ML ML GT SCH (11:35)
[2016-10-04] MEDS: METOPROLOL TARTRATE 50 MG TABLET (FP) GT SCH ×2 (11:35→21:51)
[2016-10-04] MEDS: LISINOPRIL 20 MG TABLET (FP) GT SCH (11:36)
[2016-10-04] MEDS: SIMETHICONE 40 MG/0.6 ML BOTTLE PEG SCH (11:36)
[2016-10-04] MEDS: RANITIDINE HCL 150 MG/10 ML UNIT-DOSE CUP PO SCH ×2 (11:37→21:52)
[2016-10-04] MEDS: amLODIPine BESYLATE 10 MG TABLET (FP) GT SCH (11:37)
[2016-10-04] MEDS: AMINO ACIDS/PROTEIN HYDROLYS SUGAR-FREE 30 ML PACKET PO SCH (11:37)
--- NOTE | 2016-10-04 13:57 | HP ---
Document opened in error. I was not involved in the clinical care of this patient. Visit type - Emergency Visit Emergency Visit: Yes ED Registration Date: 06/27/15 Care time: The patient presented to the Emergency Department on the above date and was hospitalized for further evaluation of their emergent condition. - New Patient This patient is new to me today: Yes Date on this admission: 10/05/16 - Critical Care Critical Care patient: Yes Total Critical Care Time (in minutes): 35 Critical Care Statement: The care of this patient involved high complexity decision making to prevent further life threatening deterioration of the patient 's condition and/or to evalute & treat vital organ system(s) failure or risk of failure.
--- NOTE | 2016-10-04 18:30 | PN ---
Physical Exam: SUBJECTIVE: Patient seen and examined. No changes, daughter at bedside. Pt appears calm OBJECTIVE: Vital Signs Period Temp Pulse Resp BP Sys/Santiago Pulse Ox Last 24 Hr 98.0 F-100.5 F 60-88 18-20 121-131/76-87 98-98 PE Neuro: non verbal, eyes open HEENT: trach hole w/ dressing CDI Pulm: CTAB CV: s1 s2 rrr no mrg Abd: Peg tube CDI soft abd Ext: warm, +DP pulses Skin: x2 buttock ulcers Laboratory Results - last 24 hr 10/03/16 10/03/16 10/04/16 18:16 22:52 06:19 POC Glucometer 150 118 148 10/04/16 13:09 POC Glucometer 164 Active Medications Generic Name Dose Route Start Last Admin Trade Name Freq PRN Reason Stop Dose Admin Acetaminophen 650 mg 05/26/16 14:23 10/01/16 22:36 Tylenol Oral Solution - GT 650 mg Q4H PRN Administration FEVER Amino Acids 30 ml 06/28/16 10:00 10/04/16 11:37 Prostat Sugar-Free Packet - PO 30 ml DAILY KWAKU Administration Amlodipine Besylate 10 mg 12/30/15 10:00 10/04/16 11:37 Norvasc - GT 10 mg DAILY KWAKU Administration Bacitracin 1 applic 08/09/16 16:15 10/04/16 11:33 Bacitracin - TP 1 applic DAILY KWAKU Administration Guaifenesin 10 ml 12/29/15 10:43 08/02/16 10:38 Robitussin Dm - PO 10 ml Q6H PRN Administration COUGH Insulin Aspart 1 vial 09/17/16 16:30 10/04/16 18:16 Novolog Vial Sliding Scale - SQ Not Given ACHS [facility] Protocol Insulin Detemir 20 units 09/21/16 13:25 10/03/16 22:53 Levemir Vial SQ 20 units HS KWAKU Administration Lactobacillus Acidophilus 1 tab 12/30/15 10:00 10/04/16 11:33 Bacid - PO 1 tab DAILY KWAKU Administration Lisinopril 40 mg 12/30/15 10:00 10/04/16 11:36 Prinivil GT 40 mg DAILY KWAKU Administration Metoprolol Tartrate 150 mg 12/29/15 22:00 10/04/16 11:35 Lopressor - GT 150 mg BID KWAKU Administration Metoprolol Tartrate 5 mg 12/29/15 10:43 Lopressor Injection - IVPB Q6H PRN HYPERTENSION Ranitidine HCl 150 mg 08/27/16 12:15 10/04/16 11:37 Zantac Oral Solution - PO 150 mg BID KWAKU Administration Scopolamine HBr 1 patch 05/20/16 15:45 10/02/16 17:52 Transderm-Scop - TD Not Given Q72H KWAKU Simethicone 40 mg 08/25/16 10:00 10/04/16 11:36 Mylicon Liquid - PEG 40 mg DAILY KWAKU Administration Assessment: 75 year old male with PMHx of HTN, IDDM, inguinal hernia who presented to the ED with diverticular bleed s/p Righ hemicolectomy with hospital course complicated 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 Plan: 1. Fevers, diarrhea - Afebrile - Off abxi f fever increases >101 will re call ID 2. Anoxic brain injury s/p brainstem CVAs - Mental status unchanged 3. Respiratory failure secondary to anoxic brain injury - Cont O2 via room air, NC when needed - Duonebs PRN 4. HTN - Continue lisinopril, amlodipine, lopressor 5. Multiple pressure ulcers - Turn and position q2h 6. IDDM - Levemir at 18u sq qhs - ISS BGM ACHS 7. Nutrition - 70 ml/hr Glucerna 1.5, 65 ml/hr water flushes - Prostat daily - Zantac BID 8. Prophylaxis: - SCDs bilaterally - No chemical AC 2/2 spontaneous gluteal bleed and severe GI bleed - Functional quadriplegia CODE STATUS: DNR Visit type - Emergency Visit Emergency Visit: Yes ED Registration Date: 06/27/15 Care time: The patient presented to the Emergency Department on the above date and was hospitalized for further evaluation of their emergent condition. - New Patient This patient is new to me today: No - Critical Care Critical Care patient: No - Discharge Referral Referred to [facility] Med P.C.: No
[2016-10-04] MEDS: INSULIN DETEMIR 100 UNITS/ML MDV SQ SCH (21:51)
[2016-10-05] MEDS: INSULIN SLIDING SCALE (NOVOLOG) 1 VIAL SQ SCH ×4 (06:14→23:11)
[2016-10-05] MEDS: LISINOPRIL 20 MG TABLET (FP) GT SCH (10:13)
[2016-10-05] MEDS: METOPROLOL TARTRATE 50 MG TABLET (FP) GT SCH ×2 (10:13→22:49)
[2016-10-05] MEDS: amLODIPine BESYLATE 10 MG TABLET (FP) GT SCH (10:13)
[2016-10-05] MEDS: RANITIDINE HCL 150 MG/10 ML UNIT-DOSE CUP PO SCH ×2 (10:13→22:48)
[2016-10-05] MEDS: SIMETHICONE 40 MG/0.6 ML BOTTLE PEG SCH (10:14)
[2016-10-05] MEDS: BACITRACIN 15 GM TUBE TOPICAL OINTMENT TP SCH (10:14)
[2016-10-05] MEDS: MULTIVIT-MINERALS 236 ML ML GT SCH (10:14)
[2016-10-05] MEDS: LACTOBACILLUS ACIDOPHILUS 1 EACH TAB (FP) PO SCH (10:14)
[2016-10-05] MEDS: AMINO ACIDS/PROTEIN HYDROLYS SUGAR-FREE 30 ML PACKET PO SCH (10:14)
--- NOTE | 2016-10-05 14:31 | PN ---
Physical Exam: SUBJECTIVE: Patient seen and examined. No changes, no fevers. OBJECTIVE: Vital Signs Period Temp Pulse Resp BP Sys/Santiago Pulse Ox Last 24 Hr 98.5 F-100.5 F 60-105 18-20 121-142/72-86 96-99 PE Neuro: non verbal, eyes open HEENT: trach hole w/ dressing CDI, no thrush Pulm: clear anteriorly CV: s1 s2 rrr no mrg Abd: Peg tube CDI soft abd Ext: warm, +DP pulses Skin: x2 buttock ulcers Laboratory Results - last 24 hr 10/04/16 10/04/16 10/05/16 18:10 21:50 06:13 POC Glucometer 154 158 144 10/05/16 12:06 POC Glucometer 180 Active Medications Generic Name Dose Route Start Last Admin Trade Name Freq PRN Reason Stop Dose Admin Acetaminophen 650 mg 05/26/16 14:23 10/01/16 22:36 Tylenol Oral Solution - GT 650 mg Q4H PRN Administration FEVER Amino Acids 30 ml 06/28/16 10:00 10/05/16 10:14 Prostat Sugar-Free Packet - PO 30 ml DAILY KWAKU Administration Amlodipine Besylate 10 mg 12/30/15 10:00 10/05/16 10:13 Norvasc - GT 10 mg DAILY KWAKU Administration Bacitracin 1 applic 08/09/16 16:15 10/05/16 10:14 Bacitracin - TP 1 applic DAILY KWAKU Administration Guaifenesin 10 ml 12/29/15 10:43 08/02/16 10:38 Robitussin Dm - PO 10 ml Q6H PRN Administration COUGH Insulin Aspart 1 vial 09/17/16 16:30 10/05/16 12:34 Novolog Vial Sliding Scale - SQ 4 units ACHS KWAKU Administration Protocol Insulin Detemir 20 units 09/21/16 13:25 10/04/16 21:51 Levemir Vial SQ 20 units HS KWAKU Administration Lactobacillus Acidophilus 1 tab 12/30/15 10:00 10/05/16 10:14 Bacid - PO 1 tab DAILY KWAKU Administration Lisinopril 40 mg 12/30/15 10:00 10/05/16 10:13 Prinivil GT 40 mg DAILY KWAKU Administration Metoprolol Tartrate 150 mg 12/29/15 22:00 10/05/16 10:13 Lopressor - GT 150 mg BID KWAKU Administration Metoprolol Tartrate 5 mg 12/29/15 10:43 Lopressor Injection - IVPB Q6H PRN HYPERTENSION Ranitidine HCl 150 mg 08/27/16 12:15 10/05/16 10:13 Zantac Oral Solution - PO 150 mg BID KWAKU Administration Scopolamine HBr 1 patch 05/20/16 15:45 10/02/16 17:52 Transderm-Scop - TD Not Given Q72H KWAKU Simethicone 40 mg 08/25/16 10:00 10/05/16 10:14 Mylicon Liquid - PEG 40 mg DAILY KWAKU Administration \ Assessment: 75 year old male with PMHx of HTN, IDDM, inguinal hernia who presented to the ED with diverticular bleed s/p Righ hemicolectomy with hospital course complicated 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 Plan: 1. Anoxic brain injury s/p brainstem CVAs - Mental status unchanged 2. Respiratory failure secondary to anoxic brain injury - Cont O2 via room air, NC when needed - Duonebs PRN 3. HTN - Continue lisinopril, amlodipine, lopressor 4. Multiple pressure ulcers - Sacral wound improving - Turn and position q2h 5. IDDM - Levemir at 18u sq qhs - ISS BGM ACHS 6. Nutrition - 70 ml/hr Glucerna 1.5, 65 ml/hr water flushes - Prostat daily - Zantac BID 7. Prophylaxis: - SCDs bilaterally - No chemical AC 2/2 spontaneous gluteal bleed and severe GI bleed - Functional quadriplegia CODE STATUS: DNR Visit type - Emergency Visit Emergency Visit: Yes ED Registration Date: 06/27/15 Care time: The patient presented to the Emergency Department on the above date and was hospitalized for further evaluation of their emergent condition. - New Patient This patient is new to me today: No - Critical Care Critical Care patient: No - Discharge Referral Referred to [facility] Med [facility] No
[2016-10-05] MEDS: SCOPOLAMINE HYDROBROMIDE 1 PATCH PATCH.TD72 TD SCH (16:15)
[2016-10-05] MEDS: INSULIN DETEMIR 100 UNITS/ML MDV SQ SCH (22:49)
[2016-10-06] MEDS: INSULIN SLIDING SCALE (NOVOLOG) 1 VIAL SQ SCH ×4 (07:00→23:23)
[2016-10-06] MEDS: LISINOPRIL 20 MG TABLET (FP) GT SCH (10:41)
[2016-10-06] MEDS: RANITIDINE HCL 150 MG/10 ML UNIT-DOSE CUP PO SCH ×2 (10:41→23:23)
[2016-10-06] MEDS: BACITRACIN 15 GM TUBE TOPICAL OINTMENT TP SCH (10:42)
[2016-10-06] MEDS: MULTIVIT-MINERALS 236 ML ML GT SCH (10:42)
[2016-10-06] MEDS: LACTOBACILLUS ACIDOPHILUS 1 EACH TAB (FP) PO SCH (10:42)
[2016-10-06] MEDS: METOPROLOL TARTRATE 50 MG TABLET (FP) GT SCH ×2 (10:42→23:23)
[2016-10-06] MEDS: AMINO ACIDS/PROTEIN HYDROLYS SUGAR-FREE 30 ML PACKET PO SCH (10:43)
[2016-10-06] MEDS: SIMETHICONE 40 MG/0.6 ML BOTTLE PEG SCH (10:43)
[2016-10-06] MEDS: amLODIPine BESYLATE 10 MG TABLET (FP) GT SCH (10:43)
--- NOTE | 2016-10-06 12:35 | PN ---
Physical Exam: SUBJECTIVE: Patient seen and examined. No acute issues, spontaneous movement continues. Does not track with eyes OBJECTIVE: Vital Signs Period Temp Pulse Resp BP Sys/Santiago Pulse Ox Last 24 Hr 98.2 F-99.1 F 69-89 18-20 132-143/81-88 96-98 PE Neuro: non verbal, eyes open HEENT: trach hole w/ dressing Pulm: clear anteriorly CV: s1 s2 rrr no mrg Abd: Peg tube CDI soft abd Ext: warm, +DP pulses Skin: x2 buttock ulcers Laboratory Results - last 24 hr 10/05/16 10/05/16 10/06/16 16:23 23:02 06:47 POC Glucometer 81 166 149 Active Medications Generic Name Dose Route Start Last Admin Trade Name Freq PRN Reason Stop Dose Admin Acetaminophen 650 mg 05/26/16 14:23 10/01/16 22:36 Tylenol Oral Solution - GT 650 mg Q4H PRN Administration FEVER Amino Acids 30 ml 06/28/16 10:00 10/06/16 10:43 Prostat Sugar-Free Packet - PO 30 ml DAILY KWAKU Administration Amlodipine Besylate 10 mg 12/30/15 10:00 10/06/16 10:43 Norvasc - GT 10 mg DAILY KWAKU Administration Bacitracin 1 applic 08/09/16 16:15 10/06/16 10:42 Bacitracin - TP 1 applic DAILY KWAKU Administration Guaifenesin 10 ml 12/29/15 10:43 08/02/16 10:38 Robitussin Dm - PO 10 ml Q6H PRN Administration COUGH Insulin Aspart 1 vial 09/17/16 16:30 10/06/16 12:15 Novolog Vial Sliding Scale - SQ 4 units ACHS KWAKU Administration Protocol Insulin Detemir 20 units 09/21/16 13:25 10/05/16 22:49 Levemir Vial SQ 20 units HS KWAKU Administration Lactobacillus Acidophilus 1 tab 12/30/15 10:00 10/06/16 10:42 Bacid - PO 1 tab DAILY KWAKU Administration Lisinopril 40 mg 12/30/15 10:00 10/06/16 10:41 Prinivil GT 40 mg DAILY KWAKU Administration Metoprolol Tartrate 150 mg 12/29/15 22:00 10/06/16 10:42 Lopressor - GT 150 mg BID KWAKU Administration Metoprolol Tartrate 5 mg 12/29/15 10:43 Lopressor Injection - IVPB Q6H PRN HYPERTENSION Ranitidine HCl 150 mg 08/27/16 12:15 10/06/16 10:41 Zantac Oral Solution - PO 150 mg BID KWAKU Administration Scopolamine HBr 1 patch 05/20/16 15:45 10/05/16 16:15 Transderm-Scop - TD 1 patch Q72H KWAKU Administration Simethicone 40 mg 08/25/16 10:00 10/06/16 10:43 Mylicon Liquid - PEG 40 mg DAILY KWAKU Administration Assessment: 75 year old male with PMHx of HTN, IDDM, inguinal hernia who presented to the ED with diverticular bleed s/p Righ hemicolectomy with hospital course complicated 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 Plan: 1. Anoxic brain injury s/p brainstem CVAs - Mental status unchanged 2. Respiratory failure secondary to anoxic brain injury - Cont O2 via room air, NC when needed - Duonebs PRN 3. HTN - Continue lisinopril, amlodipine, lopressor 4. Multiple pressure ulcers - Sacral wound improving - Turn and position q2h 5. IDDM - Levemir at 18u sq qhs - ISS BGM ACHS 6. Nutrition - 70 ml/hr Glucerna 1.5, 65 ml/hr water flushes - Prostat daily - Zantac BID 7. Prophylaxis: - SCDs bilaterally - No chemical AC 2/2 spontaneous gluteal bleed and severe GI bleed - Functional quadriplegia CODE STATUS: DNR Visit type - Emergency Visit Emergency Visit: Yes ED Registration Date: 06/27/15 Care time: The patient presented to the Emergency Department on the above date and was hospitalized for further evaluation of their emergent condition. - New Patient This patient is new to me today: No - Critical Care Critical Care patient: No - Discharge Referral Referred to [facility] Med P.C.: No
[2016-10-06] MEDS: INSULIN DETEMIR 100 UNITS/ML MDV SQ SCH (23:22)
[2016-10-07] MEDS: INSULIN SLIDING SCALE (NOVOLOG) 1 VIAL SQ SCH ×4 (06:16→23:14)
[2016-10-07] MEDS: METOPROLOL TARTRATE 50 MG TABLET (FP) GT SCH ×2 (11:20→23:16)
[2016-10-07] MEDS: LISINOPRIL 20 MG TABLET (FP) GT SCH (11:21)
[2016-10-07] MEDS: amLODIPine BESYLATE 10 MG TABLET (FP) GT SCH (11:21)
[2016-10-07] MEDS: BACITRACIN 15 GM TUBE TOPICAL OINTMENT TP SCH (11:21)
[2016-10-07] MEDS: RANITIDINE HCL 150 MG/10 ML UNIT-DOSE CUP PO SCH ×2 (11:21→23:16)
[2016-10-07] MEDS: LACTOBACILLUS ACIDOPHILUS 1 EACH TAB (FP) PO SCH (11:21)
[2016-10-07] MEDS: SIMETHICONE 40 MG/0.6 ML BOTTLE PEG SCH (11:21)
[2016-10-07] MEDS: AMINO ACIDS/PROTEIN HYDROLYS SUGAR-FREE 30 ML PACKET PO SCH (11:21)
[2016-10-07] MEDS: MULTIVIT-MINERALS 236 ML ML GT SCH (11:22)
--- NOTE | 2016-10-07 14:12 | PN ---
Physical Exam: SUBJECTIVE: Patient seen and examined. No new events. OBJECTIVE: Vital Signs Period Temp Pulse Resp BP Sys/Santiago Pulse Ox Last 24 Hr 97.9 F-98.2 F 70-77 18-20 128-149/84-85 98 PE Neuro: non verbal, eyes open HEENT: trach hole w/ dressing Pulm: clear anteriorly CV: s1 s2 rrr no mrg Abd: Peg tube CDI soft abd Ext: warm, +DP pulses Skin: x2 buttock ulcers Laboratory Results - last 24 hr 10/06/16 10/06/16 10/06/16 11:44 16:41 23:19 POC Glucometer 186 156 154 10/07/16 10/07/16 06:10 12:34 POC Glucometer 133 184 Active Medications Generic Name Dose Route Start Last Admin Trade Name Freq PRN Reason Stop Dose Admin Acetaminophen 650 mg 05/26/16 14:23 10/01/16 22:36 Tylenol Oral Solution - GT 650 mg Q4H PRN Administration FEVER Amino Acids 30 ml 06/28/16 10:00 10/07/16 11:21 Prostat Sugar-Free Packet - PO 30 ml DAILY KWAKU Administration Amlodipine Besylate 10 mg 12/30/15 10:00 10/07/16 11:21 Norvasc - GT 10 mg DAILY KWAKU Administration Bacitracin 1 applic 08/09/16 16:15 10/07/16 11:21 Bacitracin - TP 1 applic DAILY KWAKU Administration Guaifenesin 10 ml 12/29/15 10:43 08/02/16 10:38 Robitussin Dm - PO 10 ml Q6H PRN Administration COUGH Insulin Aspart 1 vial 09/17/16 16:30 10/07/16 12:37 Novolog Vial Sliding Scale - SQ 4 units ACHS KWAKU Administration Protocol Insulin Detemir 20 units 09/21/16 13:25 10/06/16 23:22 Levemir Vial SQ 20 units HS KWAKU Administration Lactobacillus Acidophilus 1 tab 12/30/15 10:00 10/07/16 11:21 Bacid - PO 1 tab DAILY KWAKU Administration Lisinopril 40 mg 12/30/15 10:00 10/07/16 11:21 Prinivil GT 40 mg DAILY KWAKU Administration Metoprolol Tartrate 150 mg 12/29/15 22:00 10/07/16 11:20 Lopressor - GT 150 mg BID KWAKU Administration Metoprolol Tartrate 5 mg 12/29/15 10:43 Lopressor Injection - IVPB Q6H PRN HYPERTENSION Ranitidine HCl 150 mg 08/27/16 12:15 10/07/16 11:21 Zantac Oral Solution - PO 150 mg BID KWAKU Administration Scopolamine HBr 1 patch 05/20/16 15:45 10/05/16 16:15 Transderm-Scop - TD 1 patch Q72H KWAKU Administration Simethicone 40 mg 08/25/16 10:00 10/07/16 11:21 Mylicon Liquid - PEG 40 mg DAILY KWAKU Administration Microbiology 10/05/16 06:30 Urine Culture - Preliminary Urine - Urine - Catheterized Non Lactose Fermenting Gnb Assessment: 75 year old male with PMHx of HTN, IDDM, inguinal hernia who presented to the ED with diverticular bleed s/p Righ hemicolectomy with hospital course complicated 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 Plan: 1. UTI - Urine cx w LF GB, will await final speciation, could be colonizing, pt is afebrile non infectious appearing 2. Anoxic brain injury s/p brainstem CVAs - Mental status unchanged 3. Respiratory failure secondary to anoxic brain injury - Cont O2 via room air, NC when needed - Duonebs PRN 4. HTN - Continue lisinopril, amlodipine, lopressor 5. Multiple pressure ulcers - Sacral wound improving - Turn and position q2h 6. IDDM - Levemir at 18u sq qhs - ISS BGM ACHS 7. Nutrition - 70 ml/hr Glucerna 1.5, 65 ml/hr water flushes - Prostat daily - Zantac BID 8. Prophylaxis: - SCDs bilaterally - No chemical AC 2/2 spontaneous gluteal bleed and severe GI bleed - Functional quadriplegia CODE STATUS: DNR Visit type - Emergency Visit Emergency Visit: Yes ED Registration Date: 06/27/15 Care time: The patient presented to the Emergency Department on the above date and was hospitalized for further evaluation of their emergent condition. - New Patient This patient is new to me today: No - Critical Care Critical Care patient: No - Discharge Referral Referred to [facility] No
[2016-10-07] MEDS: INSULIN DETEMIR 100 UNITS/ML MDV SQ SCH (23:15)
[2016-10-08] MEDS: INSULIN SLIDING SCALE (NOVOLOG) 1 VIAL SQ SCH ×4 (06:05→22:02)
[2016-10-08] MEDS: RANITIDINE HCL 150 MG/10 ML UNIT-DOSE CUP PO SCH ×2 (10:05→21:58)
[2016-10-08] MEDS: LISINOPRIL 20 MG TABLET (FP) GT SCH (10:05)
[2016-10-08] MEDS: amLODIPine BESYLATE 10 MG TABLET (FP) GT SCH (10:05)
[2016-10-08] MEDS: LACTOBACILLUS ACIDOPHILUS 1 EACH TAB (FP) PO SCH (10:05)
[2016-10-08] MEDS: MULTIVIT-MINERALS 236 ML ML GT SCH (10:06)
[2016-10-08] MEDS: BACITRACIN 15 GM TUBE TOPICAL OINTMENT TP SCH (10:06)
[2016-10-08] MEDS: METOPROLOL TARTRATE 50 MG TABLET (FP) GT SCH ×2 (10:06→21:58)
[2016-10-08] MEDS: SIMETHICONE 40 MG/0.6 ML BOTTLE PEG SCH (10:07)
[2016-10-08] MEDS: AMINO ACIDS/PROTEIN HYDROLYS SUGAR-FREE 30 ML PACKET PO SCH (10:07)
--- NOTE | 2016-10-08 11:43 | PN ---
Physical Exam: SUBJECTIVE: Patient seen and examined. He is awake today, still does not track with eyes OBJECTIVE: Vital Signs Period Temp Pulse Resp BP Sys/Santiago Pulse Ox Last 24 Hr 98.2 F-98.9 F 74-85 20-20 138-142/88-96 98 PE Neuro: non verbal, eyes open HEENT: trach hole w/ dressing Pulm: clear anteriorly CV: s1 s2 rrr no mrg Abd: Peg tube CDI soft abd Ext: warm, +DP pulses Skin: x2 buttock ulcers Laboratory Results - last 24 hr 10/07/16 10/07/16 10/07/16 12:34 18:03 23:13 POC Glucometer 184 154 139 10/08/16 05:52 POC Glucometer 136 Active Medications Generic Name Dose Route Start Last Admin Trade Name Freq PRN Reason Stop Dose Admin Acetaminophen 650 mg 05/26/16 14:23 10/01/16 22:36 Tylenol Oral Solution - GT 650 mg Q4H PRN Administration FEVER Amino Acids 30 ml 06/28/16 10:00 10/08/16 10:07 Prostat Sugar-Free Packet - PO 30 ml DAILY KWAKU Administration Amlodipine Besylate 10 mg 12/30/15 10:00 10/08/16 10:05 Norvasc - GT 10 mg DAILY KWAKU Administration Bacitracin 1 applic 08/09/16 16:15 10/08/16 10:06 Bacitracin - TP 1 applic DAILY KWAKU Administration Guaifenesin 10 ml 12/29/15 10:43 08/02/16 10:38 Robitussin Dm - PO 10 ml Q6H PRN Administration COUGH Insulin Aspart 1 vial 09/17/16 16:30 10/08/16 06:05 Novolog Vial Sliding Scale - SQ Not Given ACHS [facility] Protocol Insulin Detemir 20 units 09/21/16 13:25 10/07/16 23:15 Levemir Vial SQ 20 units HS KWAKU Administration Lactobacillus Acidophilus 1 tab 12/30/15 10:00 10/08/16 10:05 Bacid - PO 1 tab DAILY KWAKU Administration Lisinopril 40 mg 12/30/15 10:00 10/08/16 10:05 Prinivil GT 40 mg DAILY KWAKU Administration Metoprolol Tartrate 150 mg 12/29/15 22:00 10/08/16 10:06 Lopressor - GT 150 mg BID KWAKU Administration Metoprolol Tartrate 5 mg 12/29/15 10:43 Lopressor Injection - IVPB Q6H PRN HYPERTENSION Ranitidine HCl 150 mg 08/27/16 12:15 10/08/16 10:05 Zantac Oral Solution - PO 150 mg BID KWAKU Administration Scopolamine HBr 1 patch 05/20/16 15:45 10/05/16 16:15 Transderm-Scop - TD 1 patch Q72H KWAKU Administration Simethicone 40 mg 08/25/16 10:00 10/08/16 10:07 Mylicon Liquid - PEG 40 mg DAILY KWAKU Administration Microbiology 10/05/16 06:30 Urine Culture - Preliminary Urine - Urine - Catheterized Non Lactose Fermenting Gnb Assessment: 75 year old male with PMHx of HTN, IDDM, inguinal hernia who presented to the ED with diverticular bleed s/p Righ hemicolectomy with hospital course complicated 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 Plan: 1. UTI - Urine cx w LF GB, will await final speciation, could be colonizing, pt is afebrile non infectious appearing 2. Anoxic brain injury s/p brainstem CVAs - Mental status unchanged 3. Respiratory failure secondary to anoxic brain injury - Cont O2 via room air, NC when needed - Duonebs PRN 4. HTN - Continue lisinopril, amlodipine, lopressor 5. Multiple pressure ulcers - Sacral wound improving - Turn and position q2h 6. IDDM - Levemir at 18u sq qhs - ISS BGM ACHS 7. Nutrition - 70 ml/hr Glucerna 1.5, 65 ml/hr water flushes - Prostat daily - Zantac BID 8. Prophylaxis: - SCDs bilaterally - No chemical AC 2/2 spontaneous gluteal bleed and severe GI bleed - Functional quadriplegia CODE STATUS: DNR Visit type - Emergency Visit Emergency Visit: Yes ED Registration Date: 06/27/15 Care time: The patient presented to the Emergency Department on the above date and was hospitalized for further evaluation of their emergent condition. - New Patient This patient is new to me today: No - Critical Care Critical Care patient: No - Discharge Referral Referred to [facility] Med P.C.: No
[2016-10-08] MEDS: SCOPOLAMINE HYDROBROMIDE 1 PATCH PATCH.TD72 TD SCH (15:52)
[2016-10-08] MEDS: INSULIN DETEMIR 100 UNITS/ML MDV SQ SCH (21:57)
[2016-10-09] MEDS: INSULIN SLIDING SCALE (NOVOLOG) 1 VIAL SQ SCH ×4 (06:04→22:55)
[2016-10-09 07:21] LABS: BASOPHIL 0.6 % (0-2.0); EOSINOPHIL 3.6 % (0-4.5); MCH 29.5 pg (25.7-33.7); MCHC 33.5 g/dl (32.0-35.9); MEAN PLT VOLUME 9.8 fl (7.5-11.1); NEUTROPHILS 58.9 % (42.8-82.8); PLATELET COUNT 183 K/MM3 (134-434); RDW 16.8 % (11.9-15.9); WHITE BLOOD COUNT 6.9 K/mm3 (4.0-10.0)
[2016-10-09 07:41] LABS: CALCIUM 9.6 mg/dL (8.5-10.1); CREATININE 0.6 mg/dL (0.7-1.3)
--- NOTE | 2016-10-09 10:45 | PN ---
Physical Exam: SUBJECTIVE: Patient seen and examined. He is non verbal at baseline, appears comfortable at rest. No events overnight. OBJECTIVE: GENERAL: appears comfortable at rest, Tolerating feeds HEAD: Normal with no signs of trauma NECK: Trach removed, site is c/d/i, no redness or drainage noted. LUNGS: Scattered rhonchi auscultated anteriorly HEART: Regular rate and rhythm, heart rate 80s ABDOMEN: peg tube LUQ - on Jevity feeds with water flushes NEUROLOGICAL: at baseline, opens eyes intermittently. Vital Signs Period Temp Pulse Resp BP Sys/Santiago Pulse Ox Last 24 Hr 98 F-98.7 F 59-78 20-22 133-134/65-77 97 Laboratory Results - last 24 hr 10/08/16 10/08/16 10/08/16 12:07 17:51 21:50 WBC RBC Hgb Hct MCV MCHC RDW Plt Count MPV Neutrophils % Lymphocytes % Monocytes % Eosinophils % Basophils % Sodium Potassium Chloride Carbon Dioxide Anion Gap BUN Creatinine POC Glucometer 174 137 153 Random Glucose Calcium 10/09/16 10/09/16 10/09/16 05:38 05:45 05:45 WBC 6.9 RBC 3.79 L Hgb 11.2 L Hct 33.3 L MCV 88.0 MCHC 33.5 RDW 16.8 H Plt Count 183 D MPV 9.8 Neutrophils % 58.9 Lymphocytes % 30.7 Monocytes % 6.2 Eosinophils % 3.6 Basophils % 0.6 Sodium 139 Potassium 3.7 Chloride 100 Carbon Dioxide 29 Anion Gap 10 BUN 20 H Creatinine 0.6 L POC Glucometer 150 Random Glucose 116 H D Calcium 9.6 Active Medications Generic Name Dose Route Start Last Admin Trade Name Freq PRN Reason Stop Dose Admin Acetaminophen 650 mg 05/26/16 14:23 10/01/16 22:36 Tylenol Oral Solution - GT 650 mg Q4H PRN Administration FEVER Amino Acids 30 ml 06/28/16 10:00 10/08/16 10:07 Prostat Sugar-Free Packet - PO 30 ml DAILY KWAKU Administration Amlodipine Besylate 10 mg 12/30/15 10:00 10/08/16 10:05 Norvasc - GT 10 mg DAILY KWAKU Administration Bacitracin 1 applic 08/09/16 16:15 10/08/16 10:06 Bacitracin - TP 1 applic DAILY KWAKU Administration Guaifenesin 10 ml 12/29/15 10:43 08/02/16 10:38 Robitussin Dm - PO 10 ml Q6H PRN Administration COUGH Insulin Aspart 1 vial 09/17/16 16:30 10/09/16 06:04 Novolog Vial Sliding Scale - SQ Not Given ACHS [facility] Protocol Insulin Detemir 20 units 09/21/16 13:25 10/08/16 21:57 Levemir Vial SQ 20 units HS KWAKU Administration Lactobacillus Acidophilus 1 tab 12/30/15 10:00 10/08/16 10:05 Bacid - PO 1 tab DAILY KWAKU Administration Lisinopril 40 mg 12/30/15 10:00 10/08/16 10:05 Prinivil GT 40 mg DAILY KWAKU Administration Metoprolol Tartrate 150 mg 12/29/15 22:00 10/08/16 21:58 Lopressor - GT 150 mg BID KWAKU Administration Metoprolol Tartrate 5 mg 12/29/15 10:43 Lopressor Injection - IVPB Q6H PRN HYPERTENSION Ranitidine HCl 150 mg 08/27/16 12:15 10/08/16 21:58 Zantac Oral Solution - PO 150 mg BID KWAKU Administration Scopolamine HBr 1 patch 05/20/16 15:45 10/08/16 15:52 Transderm-Scop - TD 1 patch Q72H KWAKU Administration Simethicone 40 mg 08/25/16 10:00 10/08/16 10:07 Mylicon Liquid - PEG 40 mg DAILY KWAKU Administration ASSESSMENT/PLAN: Patient is a 76 year old male with a past medical history of IDDM, HTN and inguinal hernia. He presented to the emergency room on 06/27/2015 with a diverticular bleed s/p right hemicolectomy. His hospitalization was further complicated with a CVA with anoxic brain injury. He is s/p trach secondary to respiratory failure. ID: Fevers - resolved (afebrile since 10/05/2016) Assessment/Plan: No fevers since 10/05/2016, he is non toxic appearing, WBC within normal limits. Monitor off antibiotics. Urine culture growing non lactose fermenting grib - awaiting organism. Blood cultures 10/01/2016: Staph Coag Neg one 1 bottle, likely contaminant. Will reconsult ID as needed GI: Aspiration Precautions - chronic Assessment/Plan: Tolerating tube feeds. 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 Continue to monitor for any acute changes Pulmonary: Respiratory Failure - chronic Assessment/Plan: Tolerating room air. Has respiratory failure secondary to anoxic brain injury. He is on duonebs PRN, Trach collar removed on 09/09/2016 - site with sterile dressing. Monitor for any signs of drainage or redness Endocrine: Diabetes - chronic Assessment/Plan: BGMs improving with the increased Levemir and tighter control of sliding scale Capillary glucose ac/hs F.E.N. NPO Glucerna 70cc/hr with water flushes and 250cc free water BID Prostat for treatment of pressure ulcers Functional Quadraplegia BMP within normal limits Prophylaxis: DVT: SCDs - both legs. No AC: contraindicated secondary to history of GI bleed GI Regimen: Ranitidine BID Bowel regimen: deferred, having soft stools He is bed bound and a total care Code Status: Patient continues to require inpatient hospitalization. DNR Visit type - Emergency Visit Emergency Visit: Yes ED Registration Date: 06/27/15 Care time: The patient presented to the Emergency Department on the above date and was hospitalized for further evaluation of their emergent condition. - New Patient This patient is new to me today: No - Critical Care Critical Care patient: No - Discharge Referral Referred to [facility] Med P.C.: No
[2016-10-09] MEDS: LISINOPRIL 20 MG TABLET (FP) GT SCH (12:28)
[2016-10-09] MEDS: LACTOBACILLUS ACIDOPHILUS 1 EACH TAB (FP) PO SCH (12:28)
[2016-10-09] MEDS: METOPROLOL TARTRATE 50 MG TABLET (FP) GT SCH ×2 (12:28→22:55)
[2016-10-09] MEDS: amLODIPine BESYLATE 10 MG TABLET (FP) GT SCH (12:29)
[2016-10-09] MEDS: AMINO ACIDS/PROTEIN HYDROLYS SUGAR-FREE 30 ML PACKET PO SCH (12:29)
[2016-10-09] MEDS: RANITIDINE HCL 150 MG/10 ML UNIT-DOSE CUP PO SCH ×2 (12:29→22:56)
[2016-10-09] MEDS: SIMETHICONE 40 MG/0.6 ML BOTTLE PEG SCH (12:30)
[2016-10-09] MEDS: MULTIVIT-MINERALS 236 ML ML GT SCH (12:31)
[2016-10-09] MEDS: BACITRACIN 15 GM TUBE TOPICAL OINTMENT TP SCH (12:31)
--- NOTE | 2016-10-09 15:58 | PN ---
Progress Note (short form) - Note Progress Note: awake, nonverbal, no distress NAD asked to see for positive urine culture Vital Signs Period Temp Pulse Resp BP Sys/Santiago Pulse Ox Last 24 Hr 98 F-98.7 F 59-78 18-20 133-141/65-83 97 cor-rrr lungs decreased bs at bases abd soft,nt +[place] catheter ext no edema CBC, BMP 10/09/16 05:45 10/09/16 05:45 Microbiology 10/05/16 06:30 Urine Culture - Final Urine - Urine - Catheterized Proteus Mirabilus - Esbl Produ a/p fevers resolved no need to treat for UTI would continue contact isolation thank you please call back if we can be of further assistance
[2016-10-09] MEDS: INSULIN DETEMIR 100 UNITS/ML MDV SQ SCH (22:55)
[2016-10-10] MEDS: INSULIN SLIDING SCALE (NOVOLOG) 1 VIAL SQ SCH ×2 (06:02→21:07)
[2016-10-10] MEDS: LACTOBACILLUS ACIDOPHILUS 1 EACH TAB (FP) PO SCH (12:42)
[2016-10-10] MEDS: SIMETHICONE 40 MG/0.6 ML BOTTLE PEG SCH (12:42)
[2016-10-10] MEDS: BACITRACIN 15 GM TUBE TOPICAL OINTMENT TP SCH (12:42)
[2016-10-10] MEDS: MULTIVIT-MINERALS 236 ML ML GT SCH (12:42)
[2016-10-10] MEDS: amLODIPine BESYLATE 10 MG TABLET (FP) GT SCH (12:42)
[2016-10-10] MEDS: METOPROLOL TARTRATE 50 MG TABLET (FP) GT SCH ×2 (12:42→21:08)
[2016-10-10] MEDS: LISINOPRIL 20 MG TABLET (FP) GT SCH (12:42)
[2016-10-10] MEDS: RANITIDINE HCL 150 MG/10 ML UNIT-DOSE CUP PO SCH ×2 (12:43→21:08)
[2016-10-10] MEDS: AMINO ACIDS/PROTEIN HYDROLYS SUGAR-FREE 30 ML PACKET PO SCH (12:43)
--- NOTE | 2016-10-10 13:38 | PN ---
Physical Exam: SUBJECTIVE: Patient seen and examined. Yesterday he had one episode of vomiting. Today he is tolerating his feeds. Will monitor for now. He appears at his baseline, no fevers overnight. OBJECTIVE: Vital Signs Period Temp Pulse Resp BP Sys/Santiago Pulse Ox Last 24 Hr 98.2 F-98.8 F 69-80 16-20 130-149/78-81 97 GENERAL: appears comfortable at rest, Tolerating feeds HEAD: Normal with no signs of trauma NECK: Trach removed, site is c/d/i, no redness or drainage noted. LUNGS: Scattered rhonchi auscultated anteriorly HEART: Regular rate and rhythm, heart rate 80s ABDOMEN: peg tube LUQ - on Jevity feeds with water flushes NEUROLOGICAL: at baseline, opens eyes intermittently. Vital Signs Laboratory Results - last 24 hr 10/09/16 10/09/16 10/10/16 18:02 22:43 05:40 POC Glucometer 149 101 126 Active Medications Generic Name Dose Route Start Last Admin Trade Name Freq PRN Reason Stop Dose Admin Acetaminophen 650 mg 05/26/16 14:23 10/01/16 22:36 Tylenol Oral Solution - GT 650 mg Q4H PRN Administration FEVER Amino Acids 30 ml 06/28/16 10:00 10/10/16 12:43 Prostat Sugar-Free Packet - PO 30 ml DAILY KWAKU Administration Amlodipine Besylate 10 mg 12/30/15 10:00 10/10/16 12:42 Norvasc - GT 10 mg DAILY KWAKU Administration Bacitracin 1 applic 08/09/16 16:15 10/10/16 12:42 Bacitracin - TP 1 applic DAILY KWAKU Administration Guaifenesin 10 ml 12/29/15 10:43 08/02/16 10:38 Robitussin Dm - PO 10 ml Q6H PRN Administration COUGH Insulin Aspart 1 vial 09/17/16 16:30 10/10/16 06:02 Novolog Vial Sliding Scale - SQ Not Given ACHS [facility] Protocol Insulin Detemir 20 units 09/21/16 13:25 10/09/16 22:55 Levemir Vial SQ 20 units HS KWAKU Administration Lactobacillus Acidophilus 1 tab 12/30/15 10:00 10/10/16 12:42 Bacid - PO 1 tab DAILY KWAKU Administration Lisinopril 40 mg 12/30/15 10:00 10/10/16 12:42 Prinivil GT 40 mg DAILY KWAKU Administration Metoprolol Tartrate 150 mg 12/29/15 22:00 10/10/16 12:42 Lopressor - GT 150 mg BID KWAKU Administration Metoprolol Tartrate 5 mg 12/29/15 10:43 Lopressor Injection - IVPB Q6H PRN HYPERTENSION Ranitidine HCl 150 mg 08/27/16 12:15 10/10/16 12:43 Zantac Oral Solution - PO 150 mg BID KWAKU Administration Scopolamine HBr 1 patch 05/20/16 15:45 10/08/16 15:52 Transderm-Scop - TD 1 patch Q72H KWAKU Administration Simethicone 40 mg 08/25/16 10:00 10/10/16 12:42 Mylicon Liquid - PEG 40 mg DAILY KWAKU Administration ASSESSMENT/PLAN: Patient is a 76 year old male with a past medical history of IDDM, HTN and inguinal hernia. He presented to the emergency room on 06/27/2015 with a diverticular bleed s/p right hemicolectomy. His hospitalization was further complicated with a CVA with anoxic brain injury. He is s/p trach secondary to respiratory failure. ID: Fevers - resolved (afebrile since 10/05/2016) Assessment/Plan: No fevers since 10/05/2016, he is non toxic appearing, WBC within normal limits. Urine culture 10/05/2016 shows proteus mirabilus - ESBL prod. As per ID, monitor off antibiotics GI: Aspiration Precautions - chronic Assessment/Plan: Tolerating tube feeds. 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 Continue to monitor for any acute changes Pulmonary: Respiratory Failure - chronic Assessment/Plan: Tolerating room air. Has respiratory failure secondary to anoxic brain injury. He is on duonebs PRN, Trach collar removed on 09/09/2016 - site with sterile dressing. Monitor for any signs of drainage or redness Endocrine: Diabetes - chronic Assessment/Plan: BGMs improving with the increased Levemir and tighter control of sliding scale Capillary glucose ac/hs F.E.N. NPO Glucerna 70cc/hr with water flushes and 250cc free water BID Prostat for treatment of pressure ulcers Functional Quadraplegia BMP within normal limits Prophylaxis: DVT: SCDs - both legs. No AC: contraindicated secondary to history of GI bleed GI Regimen: Ranitidine BID Bowel regimen: deferred, having soft stools He is bed bound and a total care Code Status: Patient continues to require inpatient hospitalization. DNR Visit type - Emergency Visit Emergency Visit: Yes ED Registration Date: 06/27/15 Care time: The patient presented to the Emergency Department on the above date and was hospitalized for further evaluation of their emergent condition. - New Patient This patient is new to me today: No - Critical Care Critical Care patient: No - Discharge Referral Referred to [facility] Med [facility].: No
[2016-10-10] MEDS: INSULIN DETEMIR 100 UNITS/ML MDV SQ SCH (21:07)
[2016-10-11] MEDS: INSULIN SLIDING SCALE (NOVOLOG) 1 VIAL SQ SCH ×5 (06:03→22:28)
[2016-10-11] MEDS: BACITRACIN 15 GM TUBE TOPICAL OINTMENT TP SCH (11:10)
[2016-10-11] MEDS: LACTOBACILLUS ACIDOPHILUS 1 EACH TAB (FP) PO SCH (11:10)
[2016-10-11] MEDS: LISINOPRIL 20 MG TABLET (FP) GT SCH (11:11)
[2016-10-11] MEDS: METOPROLOL TARTRATE 50 MG TABLET (FP) GT SCH ×2 (11:11→22:29)
[2016-10-11] MEDS: amLODIPine BESYLATE 10 MG TABLET (FP) GT SCH (11:12)
[2016-10-11] MEDS: RANITIDINE HCL 150 MG/10 ML UNIT-DOSE CUP PO SCH ×2 (11:13→22:29)
[2016-10-11] MEDS: SIMETHICONE 40 MG/0.6 ML BOTTLE PEG SCH (11:13)
[2016-10-11] MEDS: AMINO ACIDS/PROTEIN HYDROLYS SUGAR-FREE 30 ML PACKET PO SCH (11:13)
[2016-10-11] MEDS: MULTIVIT-MINERALS 236 ML ML GT SCH (11:19)
--- NOTE | 2016-10-11 13:00 | PN ---
Physical Exam: SUBJECTIVE: Patient seen and examined. No acute events. OBJECTIVE: Vital Signs Period Temp Pulse Resp BP Sys/Santiago Pulse Ox Last 24 Hr 97.7 F-99.0 F 60-70 20-20 133-142/74-91 97 PE Neuro: non verbal, eyes open, more awake these days HEENT: trach hole w/ dressing Pulm: clear anteriorly CV: s1 s2 rrr no mrg Abd: Peg tube CDI soft abd Ext: warm, +DP pulses Skin: x2 buttock ulcers Laboratory Results - last 24 hr 10/10/16 10/11/16 10/11/16 21:05 05:57 11:30 POC Glucometer 130 135 127 Active Medications Generic Name Dose Route Start Last Admin Trade Name Freq PRN Reason Stop Dose Admin Acetaminophen 650 mg 05/26/16 14:23 10/01/16 22:36 Tylenol Oral Solution - GT 650 mg Q4H PRN Administration FEVER Amino Acids 30 ml 06/28/16 10:00 10/11/16 11:13 Prostat Sugar-Free Packet - PO 30 ml DAILY KWAKU Administration Amlodipine Besylate 10 mg 12/30/15 10:00 10/11/16 11:12 Norvasc - GT 10 mg DAILY KWAKU Administration Bacitracin 1 applic 08/09/16 16:15 10/11/16 11:10 Bacitracin - TP 1 applic DAILY KWAKU Administration Guaifenesin 10 ml 12/29/15 10:43 08/02/16 10:38 Robitussin Dm - PO 10 ml Q6H PRN Administration COUGH Insulin Aspart 1 vial 09/17/16 16:30 10/11/16 12:09 Novolog Vial Sliding Scale - SQ Not Given ACHS [facility] Protocol Insulin Detemir 20 units 09/21/16 13:25 10/10/16 21:07 Levemir Vial SQ 20 units HS KWAKU Administration Lactobacillus Acidophilus 1 tab 12/30/15 10:00 10/11/16 11:10 Bacid - PO 1 tab DAILY KWAKU Administration Lisinopril 40 mg 12/30/15 10:00 10/11/16 11:11 Prinivil GT 40 mg DAILY KWAKU Administration Metoprolol Tartrate 150 mg 12/29/15 22:00 10/11/16 11:11 Lopressor - GT 150 mg BID KWAKU Administration Metoprolol Tartrate 5 mg 12/29/15 10:43 Lopressor Injection - IVPB Q6H PRN HYPERTENSION Ranitidine HCl 150 mg 08/27/16 12:15 10/11/16 11:13 Zantac Oral Solution - PO 150 mg BID KWAKU Administration Scopolamine HBr 1 patch 05/20/16 15:45 10/08/16 15:52 Transderm-Scop - TD 1 patch Q72H KWAKU Administration Simethicone 40 mg 08/25/16 10:00 10/11/16 11:13 Mylicon Liquid - PEG 40 mg DAILY KWAKU Administration Assessment: 76 year old male with PMHx of HTN, IDDM, inguinal hernia who presented to the ED with diverticular bleed s/p Righ hemicolectomy with hospital course complicated 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 Plan: 1. UTI w/ proteus - No fevers noted, per ID no abx at this time, likely colonization 2. Anoxic brain injury s/p brainstem CVAs - Mental status unchanged 3. Respiratory failure secondary to anoxic brain injury - Cont O2 via room air, NC when needed - Duonebs PRN 4. HTN - Continue lisinopril, amlodipine, lopressor 5. Multiple pressure ulcers - Sacral wound improving - Turn and position q2h 6. IDDM - Levemir at 18u sq qhs - ISS BGM ACHS 7. Nutrition - 70 ml/hr Glucerna 1.5, 65 ml/hr water flushes - Prostat daily - Zantac BID 8. Prophylaxis: - SCDs bilaterally - No chemical AC 2/2 spontaneous gluteal bleed and severe GI bleed - Functional quadriplegia Visit type - Emergency Visit Emergency Visit: Yes ED Registration Date: 06/27/15 Care time: The patient presented to the Emergency Department on the above date and was hospitalized for further evaluation of their emergent condition. - New Patient This patient is new to me today: No - Critical Care Critical Care patient: No - Discharge Referral Referred to [facility] Med P.C.: No
[2016-10-11] MEDS: SCOPOLAMINE HYDROBROMIDE 1 PATCH PATCH.TD72 TD SCH (18:14)
[2016-10-11] MEDS: INSULIN DETEMIR 100 UNITS/ML MDV SQ SCH (22:29)
[2016-10-12] MEDS: INSULIN SLIDING SCALE (NOVOLOG) 1 VIAL SQ SCH ×3 (06:05→21:31)
[2016-10-12] MEDS: RANITIDINE HCL 150 MG/10 ML UNIT-DOSE CUP PO SCH ×2 (10:00→21:30)
[2016-10-12] MEDS: LISINOPRIL 20 MG TABLET (FP) GT SCH (10:00)
[2016-10-12] MEDS: AMINO ACIDS/PROTEIN HYDROLYS SUGAR-FREE 30 ML PACKET PO SCH (10:00)
[2016-10-12] MEDS: amLODIPine BESYLATE 10 MG TABLET (FP) GT SCH (10:00)
[2016-10-12] MEDS: METOPROLOL TARTRATE 50 MG TABLET (FP) GT SCH ×2 (10:00→21:30)
[2016-10-12] MEDS: LACTOBACILLUS ACIDOPHILUS 1 EACH TAB (FP) PO SCH (10:00)
[2016-10-12] MEDS: BACITRACIN 15 GM TUBE TOPICAL OINTMENT TP SCH (11:00)
--- NOTE | 2016-10-12 12:49 | PN ---
Physical Exam: SUBJECTIVE: Patient seen and examined. He appears more awake, however does not engage. OBJECTIVE: Vital Signs Period Temp Pulse Resp BP Sys/Santiago Pulse Ox Last 24 Hr 97.8 F-98.4 F 64-73 20-20 130-154/70-78 96 PE Neuro: non verbal, eyes open, awake HEENT: trach hole w/ dressing Pulm: clear anteriorly CV: s1 s2 rrr no mrg Abd: Peg tube CDI soft abd Ext: warm, +DP pulses Skin: x2 buttock ulcers Laboratory Results - last 24 hr 10/11/16 10/11/16 10/12/16 18:17 22:04 05:39 POC Glucometer 107 137 126 Active Medications Generic Name Dose Route Start Last Admin Trade Name Freq PRN Reason Stop Dose Admin Acetaminophen 650 mg 05/26/16 14:23 10/01/16 22:36 Tylenol Oral Solution - GT 650 mg Q4H PRN Administration FEVER Amino Acids 30 ml 06/28/16 10:00 10/11/16 11:13 Prostat Sugar-Free Packet - PO 30 ml DAILY KWAKU Administration Amlodipine Besylate 10 mg 12/30/15 10:00 10/11/16 11:12 Norvasc - GT 10 mg DAILY KWAKU Administration Bacitracin 1 applic 08/09/16 16:15 10/11/16 11:10 Bacitracin - TP 1 applic DAILY KWAKU Administration Guaifenesin 10 ml 12/29/15 10:43 08/02/16 10:38 Robitussin Dm - PO 10 ml Q6H PRN Administration COUGH Insulin Aspart 1 vial 09/17/16 16:30 10/12/16 06:05 Novolog Vial Sliding Scale - SQ Not Given ACHS [facility] Protocol Insulin Detemir 20 units 09/21/16 13:25 10/11/16 22:29 Levemir Vial SQ 20 units HS KWAKU Administration Lactobacillus Acidophilus 1 tab 12/30/15 10:00 10/11/16 11:10 Bacid - PO 1 tab DAILY KWAKU Administration Lisinopril 40 mg 12/30/15 10:00 10/11/16 11:11 Prinivil GT 40 mg DAILY KWAKU Administration Metoprolol Tartrate 150 mg 12/29/15 22:00 10/11/16 22:29 Lopressor - GT 150 mg BID KWAKU Administration Metoprolol Tartrate 5 mg 12/29/15 10:43 Lopressor Injection - IVPB Q6H PRN HYPERTENSION Ranitidine HCl 150 mg 08/27/16 12:15 10/11/16 22:29 Zantac Oral Solution - PO 150 mg BID KWAKU Administration Scopolamine HBr 1 patch 05/20/16 15:45 10/11/16 18:14 Transderm-Scop - TD 1 patch Q72H KWAKU Administration Simethicone 40 mg 08/25/16 10:00 10/11/16 11:13 Mylicon Liquid - PEG 40 mg DAILY KWAKU Administration Assessment: 76 year old male with PMHx of HTN, IDDM, inguinal hernia who presented to the ED with diverticular bleed s/p Righ hemicolectomy with hospital course complicated 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 Plan: 1. UTI w/ proteus - No fevers noted, per ID no abx at this time, likely colonization 2. Anoxic brain injury s/p brainstem CVAs - Mental status unchanged 3. Respiratory failure secondary to anoxic brain injury - Cont O2 via room air, NC when needed - Duonebs PRN 4. HTN - Continue lisinopril, amlodipine, lopressor 5. Multiple pressure ulcers - Sacral wound improving - Turn and position q2h 6. IDDM - Levemir at 18u sq qhs - ISS BGM ACHS 7. Nutrition - 70 ml/hr Glucerna 1.5, 65 ml/hr water flushes - Prostat daily - Zantac BID 8. Prophylaxis: - SCDs bilaterally - No chemical AC 2/2 spontaneous gluteal bleed and severe GI bleed - Functional quadriplegia Visit type - Emergency Visit Emergency Visit: Yes ED Registration Date: 06/27/15 Care time: The patient presented to the Emergency Department on the above date and was hospitalized for further evaluation of their emergent condition. - New Patient This patient is new to me today: No - Critical Care Critical Care patient: No - Discharge Referral Referred to [facility] Med P.C.: No
[2016-10-12] MEDS: MULTIVIT-MINERALS 236 ML ML GT SCH (18:44)
[2016-10-12] MEDS: SIMETHICONE 40 MG/0.6 ML BOTTLE PEG SCH (18:45)
[2016-10-12] MEDS: INSULIN DETEMIR 100 UNITS/ML MDV SQ SCH (21:29)
[2016-10-13] MEDS: INSULIN SLIDING SCALE (NOVOLOG) 1 VIAL SQ SCH ×4 (06:37→21:27)
[2016-10-13] MEDS: LACTOBACILLUS ACIDOPHILUS 1 EACH TAB (FP) PO SCH (11:48)
[2016-10-13] MEDS: LISINOPRIL 20 MG TABLET (FP) GT SCH (11:48)
[2016-10-13] MEDS: amLODIPine BESYLATE 10 MG TABLET (FP) GT SCH (11:48)
[2016-10-13] MEDS: AMINO ACIDS/PROTEIN HYDROLYS SUGAR-FREE 30 ML PACKET PO SCH (11:48)
[2016-10-13] MEDS: MULTIVIT-MINERALS 236 ML ML GT SCH (11:48)
[2016-10-13] MEDS: METOPROLOL TARTRATE 50 MG TABLET (FP) GT SCH ×2 (11:48→21:23)
[2016-10-13] MEDS: SIMETHICONE 40 MG/0.6 ML BOTTLE PEG SCH (11:49)
[2016-10-13] MEDS: BACITRACIN 15 GM TUBE TOPICAL OINTMENT TP SCH (11:49)
[2016-10-13] MEDS: RANITIDINE HCL 150 MG/10 ML UNIT-DOSE CUP PO SCH ×3 (11:51→21:23)
--- NOTE | 2016-10-13 13:33 | PN ---
Progress Note (short form) - Note Progress Note: Subjective: The patient was seen and examined at the bedside, non-verbal. Tolerating room air well Current Medications Generic Name Dose Route Start Last Admin Trade Name Freq PRN Reason Stop Dose Admin Acetaminophen 650 mg 05/26/16 14:23 10/01/16 22:36 Tylenol Oral Solution - GT 650 mg Q4H PRN Administration FEVER Amino Acids 30 ml 06/28/16 10:00 10/13/16 11:48 Prostat Sugar-Free Packet - PO 30 ml DAILY KWAKU Administration Amlodipine Besylate 10 mg 12/30/15 10:00 10/13/16 11:48 Norvasc - GT 10 mg DAILY KWAKU Administration Bacitracin 1 applic 08/09/16 16:15 10/13/16 11:49 Bacitracin - TP 1 applic DAILY KWAKU Administration Guaifenesin 10 ml 12/29/15 10:43 08/02/16 10:38 Robitussin Dm - PO 10 ml Q6H PRN Administration COUGH Insulin Aspart 1 vial 09/17/16 16:30 10/13/16 12:05 Novolog Vial Sliding Scale - SQ Not Given ACHS KWAKU Protocol Insulin Detemir 20 units 09/21/16 13:25 10/12/16 21:29 Levemir Vial SQ 20 units HS KWAKU Administration Lactobacillus Acidophilus 1 tab 12/30/15 10:00 10/13/16 11:48 Bacid - PO 1 tab DAILY KWAKU Administration Lisinopril 40 mg 12/30/15 10:00 10/13/16 11:48 Prinivil GT 40 mg DAILY KWAKU Administration Metoprolol Tartrate 150 mg 12/29/15 22:00 10/13/16 11:48 Lopressor - GT 150 mg BID KWAKU Administration Metoprolol Tartrate 5 mg 12/29/15 10:43 Lopressor Injection - IVPB Q6H PRN HYPERTENSION Ranitidine HCl 150 mg 08/27/16 12:15 10/13/16 12:07 Zantac Oral Solution - PO Not Given BID KWAKU Scopolamine HBr 1 patch 05/20/16 15:45 10/11/16 18:14 Transderm-Scop - TD 1 patch Q72H KWAKU Administration Simethicone 40 mg 08/25/16 10:00 10/13/16 11:49 Mylicon Liquid - PEG 40 mg DAILY KWAKU Administration Objective: Vital Signs Period Temp Pulse Resp BP Sys/Santiago Pulse Ox Last 24 Hr 97.1 F-98 F 59-87 18-20 142-163/83-107 97-97 Physical Exam: General: No acute distress, tracking with eyes HEENT: Tracheal stoma Neuro: Eye tracking to verbal stimulus Pulm: CTA anteriorly CV: RRR, S1S2 Abd: [place] catheter in place. Soft, non-distended. Normoactive bowel sounds. Peg tube c/d/i Ext: Warm, well-perfused. 2+ DP/PT bilaterally Skin: Right buttock ulcers x2 CBCD WBC 6.9 K/mm3 (4.0-10.0) 10/09/16 05:45 RBC 3.79 M/mm3 (4.00-5.60) L 10/09/16 05:45 Hgb 11.2 GM/dL (11.7-16.9) L 10/09/16 05:45 Hct 33.3 % (35.4-49) L 10/09/16 05:45 MCV 88.0 fl (80-96) 10/09/16 05:45 MCHC 33.5 g/dl (32.0-35.9) 10/09/16 05:45 RDW 16.8 % (11.9-15.9) H 10/09/16 05:45 Plt Count 183 K/MM3 (134-434) D 10/09/16 05:45 MPV 9.8 fl (7.5-11.1) 10/09/16 05:45 CMP Sodium 139 mmol/L (136-145) 10/09/16 05:45 Potassium 3.7 mmol/L (3.5-5.1) 10/09/16 05:45 Chloride 100 mmol/L (98-107) 10/09/16 05:45 Carbon Dioxide 29 mmol/L (21-32) 10/09/16 05:45 Anion Gap 10 (8-16) 10/09/16 05:45 BUN 20 mg/dL (7-18) H 10/09/16 05:45 Creatinine 0.6 mg/dL (0.7-1.3) L 10/09/16 05:45 Creat Clearance w eGFR > 60 (>60) 10/02/16 18:00 Random Glucose 116 mg/dL (74-106) H D 10/09/16 05:45 Calcium 9.6 mg/dL (8.5-10.1) 10/09/16 05:45 Total Bilirubin 0.4 mg/dL (0.2-1.0) D 10/02/16 18:00 AST 23 U/L (15-37) D 10/02/16 18:00 ALT 50 U/L (12-78) 10/02/16 18:00 Alkaline Phosphatase 136 U/L (45-117) H 10/02/16 18:00 Total Protein 7.6 g/dl (6.4-8.2) 10/02/16 18:00 Albumin 3.2 g/dl (3.4-5.0) L 10/02/16 18:00 CARDIAC ENZYMES Creatine Kinase 62 IU/L (38-174) 06/28/15 09:35 Troponin I 0.07 ng/ml (0.03-0.5) D 07/09/15 05:00 Assessment: 75 year old male with PMHx of HTN, IDDM, inguinal hernia who presented to the ED with diverticular bleed s/p Righ hemicolectomy with 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 Plan: 1. Anoxic brain injury s/p brainstem CVAs - Mental status unchanged 2. Respiratory failure secondary to anoxic brain injury - Cont O2 via room air, NC when needed - Trach removed 09/09/16 - Duonebs PRN 3. HTN - Continue lisinopril, amlodipine, lopressor 4. Multiple pressure ulcers - Turn and position q2h - Local wound care 5. IDDM - Continue Levemir at 20u sq qhs - ISS BGM ACHS 6. F/E/N: - 70 ml/hr Glucerna 1.5, 65 ml/hr water flushes - Prostat daily - Continue Zantac bid 7. Prophylaxis: - SCDs bilaterally (lower extremity doppler negative for DVTs 09/20/16) - No chemical anticoagulation 2/2 spontaneous gluteal bleed and severe GI bleed - Functional quadriplegia CODE STATUS: DNR Visit type - Emergency Visit Emergency Visit: Yes ED Registration Date: 06/27/15 Care time: The patient presented to the Emergency Department on the above date and was hospitalized for further evaluation of their emergent condition. - New Patient This patient is new to me today: No - Critical Care Critical Care patient: No
[2016-10-13] MEDS: INSULIN DETEMIR 100 UNITS/ML MDV SQ SCH (21:27)
[2016-10-14] MEDS: INSULIN SLIDING SCALE (NOVOLOG) 1 VIAL SQ SCH ×4 (06:01→23:00)
[2016-10-14] MEDS: METOPROLOL TARTRATE 50 MG TABLET (FP) GT SCH ×2 (10:24→23:00)
[2016-10-14] MEDS: LISINOPRIL 20 MG TABLET (FP) GT SCH (10:24)
[2016-10-14] MEDS: BACITRACIN 15 GM TUBE TOPICAL OINTMENT TP SCH (10:25)
[2016-10-14] MEDS: LACTOBACILLUS ACIDOPHILUS 1 EACH TAB (FP) PO SCH (10:25)
[2016-10-14] MEDS: amLODIPine BESYLATE 10 MG TABLET (FP) GT SCH (10:25)
[2016-10-14] MEDS: AMINO ACIDS/PROTEIN HYDROLYS SUGAR-FREE 30 ML PACKET PO SCH (10:25)
[2016-10-14] MEDS: SIMETHICONE 40 MG/0.6 ML BOTTLE PEG SCH (10:26)
[2016-10-14] MEDS: MULTIVIT-MINERALS 236 ML ML GT SCH (10:26)
[2016-10-14] MEDS: RANITIDINE HCL 150 MG/10 ML UNIT-DOSE CUP PO SCH ×2 (10:27→23:00)
--- NOTE | 2016-10-14 10:44 | PN ---
Progress Note (short form) - Note Progress Note: Subjective: The patient was seen and examined at the bedside, non-verbal. Tolerating room air well Current Medications Generic Name Dose Route Start Last Admin Trade Name Freq PRN Reason Stop Dose Admin Acetaminophen 650 mg 05/26/16 14:23 10/01/16 22:36 Tylenol Oral Solution - GT 650 mg Q4H PRN Administration FEVER Amino Acids 30 ml 06/28/16 10:00 10/14/16 10:25 Prostat Sugar-Free Packet - PO 30 ml DAILY KWAKU Administration Amlodipine Besylate 10 mg 12/30/15 10:00 10/14/16 10:25 Norvasc - GT 10 mg DAILY KWAKU Administration Bacitracin 1 applic 08/09/16 16:15 10/14/16 10:25 Bacitracin - TP 1 applic DAILY KWAKU Administration Guaifenesin 10 ml 12/29/15 10:43 08/02/16 10:38 Robitussin Dm - PO 10 ml Q6H PRN Administration COUGH Insulin Aspart 1 vial 09/17/16 16:30 10/14/16 06:01 Novolog Vial Sliding Scale - SQ Not Given ACHS KWAKU Protocol Insulin Detemir 20 units 09/21/16 13:25 10/13/16 21:27 Levemir Vial SQ 20 units HS KWAKU Administration Lactobacillus Acidophilus 1 tab 12/30/15 10:00 10/14/16 10:25 Bacid - PO 1 tab DAILY KWAKU Administration Lisinopril 40 mg 12/30/15 10:00 10/14/16 10:24 Prinivil GT 40 mg DAILY KWAKU Administration Metoprolol Tartrate 150 mg 12/29/15 22:00 10/14/16 10:24 Lopressor - GT 150 mg BID KWAKU Administration Metoprolol Tartrate 5 mg 12/29/15 10:43 Lopressor Injection - IVPB Q6H PRN HYPERTENSION Ranitidine HCl 150 mg 08/27/16 12:15 10/14/16 10:27 Zantac Oral Solution - PO Not Given BID KWAKU Scopolamine HBr 1 patch 05/20/16 15:45 10/11/16 18:14 Transderm-Scop - TD 1 patch Q72H KWAKU Administration Simethicone 40 mg 08/25/16 10:00 10/14/16 10:26 Mylicon Liquid - PEG 40 mg DAILY KWAKU Administration Objective: Vital Signs Period Temp Pulse Resp BP Sys/Santiago Pulse Ox Last 24 Hr 97.1 F-97.9 F 61-87 18-20 129-163/77-107 97 Physical Exam: General: No acute distress, tracking with eyes HEENT: Tracheal stoma Neuro: Eye tracking to verbal stimulus Pulm: CTA anteriorly CV: RRR, S1S2 Abd: [place] catheter in place. Soft, non-distended. Normoactive bowel sounds. Peg tube c/d/i Ext: Warm, well-perfused. 2+ DP/PT bilaterally CBCD WBC 6.9 K/mm3 (4.0-10.0) 10/09/16 05:45 RBC 3.79 M/mm3 (4.00-5.60) L 10/09/16 05:45 Hgb 11.2 GM/dL (11.7-16.9) L 10/09/16 05:45 Hct 33.3 % (35.4-49) L 10/09/16 05:45 MCV 88.0 fl (80-96) 10/09/16 05:45 MCHC 33.5 g/dl (32.0-35.9) 10/09/16 05:45 RDW 16.8 % (11.9-15.9) H 10/09/16 05:45 Plt Count 183 K/MM3 (134-434) D 10/09/16 05:45 MPV 9.8 fl (7.5-11.1) 10/09/16 05:45 CMP Sodium 139 mmol/L (136-145) 10/09/16 05:45 Potassium 3.7 mmol/L (3.5-5.1) 10/09/16 05:45 Chloride 100 mmol/L (98-107) 10/09/16 05:45 Carbon Dioxide 29 mmol/L (21-32) 10/09/16 05:45 Anion Gap 10 (8-16) 10/09/16 05:45 BUN 20 mg/dL (7-18) H 10/09/16 05:45 Creatinine 0.6 mg/dL (0.7-1.3) L 10/09/16 05:45 Creat Clearance w eGFR > 60 (>60) 10/02/16 18:00 Random Glucose 116 mg/dL (74-106) H D 10/09/16 05:45 Calcium 9.6 mg/dL (8.5-10.1) 10/09/16 05:45 Total Bilirubin 0.4 mg/dL (0.2-1.0) D 10/02/16 18:00 AST 23 U/L (15-37) D 10/02/16 18:00 ALT 50 U/L (12-78) 10/02/16 18:00 Alkaline Phosphatase 136 U/L (45-117) H 10/02/16 18:00 Total Protein 7.6 g/dl (6.4-8.2) 10/02/16 18:00 Albumin 3.2 g/dl (3.4-5.0) L 10/02/16 18:00 CARDIAC ENZYMES Creatine Kinase 62 IU/L (38-174) 06/28/15 09:35 Troponin I 0.07 ng/ml (0.03-0.5) D 07/09/15 05:00 Assessment: 75 year old male with PMHx of HTN, IDDM, inguinal hernia who presented to the ED with diverticular bleed s/p Righ hemicolectomy with 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 Plan: 1. Anoxic brain injury s/p brainstem CVAs - Mental status unchanged 2. Respiratory failure secondary to anoxic brain injury - Cont O2 via room air, NC when needed - Trach removed 09/09/16 - Duonebs PRN 3. HTN - Continue lisinopril, amlodipine, lopressor 4. Multiple pressure ulcers - Turn and position q2h - Local wound care 5. IDDM - Continue Levemir at 20u sq qhs - ISS BGM ACHS 6. F/E/N: - 70 ml/hr Glucerna 1.5, 65 ml/hr water flushes - Prostat daily - Continue Zantac bid 7. Prophylaxis: - SCDs bilaterally (lower extremity doppler negative for DVTs 09/20/16) - No chemical anticoagulation 2/2 spontaneous gluteal bleed and severe GI bleed - Functional quadriplegia CODE STATUS: DNR Visit type - Emergency Visit Emergency Visit: Yes ED Registration Date: 06/27/15 Care time: The patient presented to the Emergency Department on the above date and was hospitalized for further evaluation of their emergent condition. - New Patient This patient is new to me today: No - Critical Care Critical Care patient: No
[2016-10-14] MEDS: SCOPOLAMINE HYDROBROMIDE 1 PATCH PATCH.TD72 TD SCH (14:47)
[2016-10-14] MEDS: INSULIN DETEMIR 100 UNITS/ML MDV SQ SCH (23:00)
[2016-10-15] MEDS: INSULIN SLIDING SCALE (NOVOLOG) 1 VIAL SQ SCH ×4 (06:46→22:58)
[2016-10-15] MEDS: LISINOPRIL 20 MG TABLET (FP) GT SCH (13:03)
[2016-10-15] MEDS: SIMETHICONE 40 MG/0.6 ML BOTTLE PEG SCH (13:03)
[2016-10-15] MEDS: RANITIDINE HCL 150 MG/10 ML UNIT-DOSE CUP PO SCH ×2 (13:03→22:54)
[2016-10-15] MEDS: amLODIPine BESYLATE 10 MG TABLET (FP) GT SCH (13:03)
[2016-10-15] MEDS: AMINO ACIDS/PROTEIN HYDROLYS SUGAR-FREE 30 ML PACKET PO SCH (13:03)
[2016-10-15] MEDS: LACTOBACILLUS ACIDOPHILUS 1 EACH TAB (FP) PO SCH (13:04)
[2016-10-15] MEDS: METOPROLOL TARTRATE 50 MG TABLET (FP) GT SCH ×2 (13:04→22:54)
[2016-10-15] MEDS: MULTIVIT-MINERALS 236 ML ML GT SCH (13:04)
[2016-10-15] MEDS: BACITRACIN 15 GM TUBE TOPICAL OINTMENT TP SCH (13:04)
--- NOTE | 2016-10-15 13:24 | PN ---
Physical Exam: SUBJECTIVE: Patient seen and examined. Non-verbal, non-responsive at baseline. Observed to be apneic 30 seconds while sleeping. OBJECTIVE: Vital Signs Period Temp Pulse Resp BP Sys/Santiago Pulse Ox Last 24 Hr 97.6 F-98.0 F 55-96 18-18 128-140/74-90 97 GENERAL/NEURO: Eyes open. Non-verbal. Does not follow commands. Non-purposeful movement. HEAD: Normal with no signs of trauma. NECK: Tracheostomy site closed, well-healed. EYES: PERRL, extraocular movements intact, sclera anicteric, conjunctiva clear. No ptosis. ENT: Ears normal, nares patent, oropharynx clear without exudates, moist mucous membranes. LUNGS: CTA; apneic 30 seconds while sleeping HEART: Regular rate and rhythm, S1, S2 without murmur, rub or gallop. ABDOMEN: Soft, nontender, nondistended, normoactive bowel sounds, no guarding, no rebound, no hepatosplenomegaly, no masses. PEG tube in situ, skin clean, dry , no sign of infection EXTREMITIES: 2+ pulses, warm, well-perfused, no edema. SKIN: Healed stage III right and left buttock pressure ulcers CBCD WBC 6.9 K/mm3 (4.0-10.0) 10/09/16 05:45 RBC 3.79 M/mm3 (4.00-5.60) L 10/09/16 05:45 Hgb 11.2 GM/dL (11.7-16.9) L 10/09/16 05:45 Hct 33.3 % (35.4-49) L 10/09/16 05:45 MCV 88.0 fl (80-96) 10/09/16 05:45 MCHC 33.5 g/dl (32.0-35.9) 10/09/16 05:45 RDW 16.8 % (11.9-15.9) H 10/09/16 05:45 Plt Count 183 K/MM3 (134-434) D 10/09/16 05:45 MPV 9.8 fl (7.5-11.1) 10/09/16 05:45 CMP Sodium 139 mmol/L (136-145) 10/09/16 05:45 Potassium 3.7 mmol/L (3.5-5.1) 10/09/16 05:45 Chloride 100 mmol/L (98-107) 10/09/16 05:45 Carbon Dioxide 29 mmol/L (21-32) 10/09/16 05:45 Anion Gap 10 (8-16) 10/09/16 05:45 BUN 20 mg/dL (7-18) H 10/09/16 05:45 Creatinine 0.6 mg/dL (0.7-1.3) L 10/09/16 05:45 Creat Clearance w eGFR > 60 (>60) 10/02/16 18:00 Calcium 9.6 mg/dL (8.5-10.1) 10/09/16 05:45 Total Bilirubin 0.4 mg/dL (0.2-1.0) D 10/02/16 18:00 AST 23 U/L (15-37) D 10/02/16 18:00 ALT 50 U/L (12-78) 10/02/16 18:00 Alkaline Phosphatase 136 U/L (45-117) H 10/02/16 18:00 Total Protein 7.6 g/dl (6.4-8.2) 10/02/16 18:00 Albumin 3.2 g/dl (3.4-5.0) L 10/02/16 18:00 Generic Name Dose Route Start Last Admin Trade Name Jaylanq PRN Reason Stop Dose Admin Acetaminophen 650 mg 05/26/16 14:23 10/01/16 22:36 Tylenol Oral Solution - GT 650 mg Q4H PRN Administration FEVER Amino Acids 30 ml 06/28/16 10:00 10/15/16 13:03 Prostat Sugar-Free Packet - PO 30 ml DAILY KWAKU Administration Amlodipine Besylate 10 mg 12/30/15 10:00 10/15/16 13:03 Norvasc - GT 10 mg DAILY KWAKU Administration Bacitracin 1 applic 08/09/16 16:15 10/15/16 13:04 Bacitracin - TP 1 applic DAILY KWAKU Administration Guaifenesin 10 ml 12/29/15 10:43 08/02/16 10:38 Robitussin Dm - PO 10 ml Q6H PRN Administration COUGH Insulin Aspart 1 vial 09/17/16 16:30 10/15/16 06:46 Novolog Vial Sliding Scale - SQ 4 units ACHS KWAKU Administration Protocol Insulin Detemir 20 units 09/21/16 13:25 10/14/16 23:00 Levemir Vial SQ 20 units HS KWAKU Administration Lactobacillus Acidophilus 1 tab 12/30/15 10:00 10/15/16 13:04 Bacid - PO 1 tab DAILY KWAKU Administration Lisinopril 40 mg 12/30/15 10:00 10/15/16 13:03 Prinivil GT 40 mg DAILY KWAKU Administration Metoprolol Tartrate 150 mg 12/29/15 22:00 10/15/16 13:04 Lopressor - GT 150 mg BID KWAKU Administration Metoprolol Tartrate 5 mg 12/29/15 10:43 Lopressor Injection - IVPB Q6H PRN HYPERTENSION Ranitidine HCl 150 mg 08/27/16 12:15 10/15/16 13:03 Zantac Oral Solution - PO 150 mg BID KWAKU Administration Scopolamine HBr 1 patch 05/20/16 15:45 10/14/16 14:47 Transderm-Scop - TD 1 patch Q72H KWAKU Administration Simethicone 40 mg 08/25/16 10:00 10/15/16 13:03 Mylicon Liquid - PEG 40 mg DAILY KWAKU Administration ASSESSMENT/PLAN: 75 year old male with PMHx of HTN, IDDM, inguinal hernia who presented to the ED with diverticular bleed s/p right hemicolectomy. 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 Sleep apnea --patient sleeping on back, mouth open, observed to stop breathing ~30 seconds --request re-consult from pulmonary to assess for sleep apnea Anoxic brain injury s/p brainstem CVAs --mental status unchanged Respiratory failure secondary to anoxic brain injury, resolved --on room air, nasal cannula PRN --trach removed 09/09/16 --duonebs PRN Hydronephrosis, chronic --renal function stable Right inguinal hernia --incidental finding on CT --no surgical intervention Functional quadriplegia secondary to anoxic brain injury --inability to feed, turn, or toilet independently; requires complete care Hypertension --BP well-controlled --continue lisinopril, metoprolol, amlodipine Stage III pressure ulcers buttocks, healed IDDM --Levemir --Novolog sliding scale coverage --fingersticks F/E/N Fluids/Nutrition: - 70 ml/hr Glucerna 1.5, 65 ml/hr water flushes; Prostat daily; Zantac BID Electrolytes: replete as indicated DVT prophylaxis --SCDs bilaterally (lower extremity doppler negative for DVTs 09/20/16) --no chemical anticoagulation 2/2 spontaneous gluteal bleed and severe GI bleed Dispo: continues to require inpatient care. DNR. Visit type - Emergency Visit Emergency Visit: Yes ED Registration Date: 06/27/15 Care time: The patient presented to the Emergency Department on the above date and was hospitalized for further evaluation of their emergent condition. - New Patient This patient is new to me today: No - Critical Care Critical Care patient: No
[2016-10-15] MEDS: INSULIN DETEMIR 100 UNITS/ML MDV SQ SCH (22:57)
[2016-10-16] MEDS: INSULIN SLIDING SCALE (NOVOLOG) 1 VIAL SQ SCH ×4 (06:36→21:48)
[2016-10-16 08:03] LABS: MCH 30.1 pg (25.7-33.7); MCHC 33.8 g/dl (32.0-35.9); MEAN PLT VOLUME 9.7 fl (7.5-11.1); PLATELET COUNT 202 K/MM3 (134-434); RDW 16.9 % (11.9-15.9); WHITE BLOOD COUNT 7.3 K/mm3 (4.0-10.0)
[2016-10-16 08:37] LABS: ALBUMIN 3.7 g/dl (3.4-5.0); ANION GAP 8 (8-16); BILIRUBIN,TOTAL 0.3 mg/dL (0.2-1.0); CALCIUM 10.7 mg/dL (8.5-10.1); CO2 30 mmol/L (21-32); GLUCOSE,RANDOM 103 mg/dL (74-106); MAGNESIUM 2.3 mg/dL (1.8-2.4); PHOSPHOROUS 3.7 mg/dL (2.5-4.9); SGOT/AST 21 U/L (15-37)
[2016-10-16 08:38] LABS: ALK PHOS 138 U/L (45-117); CREATININE 0.8 mg/dL (0.7-1.3); SGPT/ALT 36 U/L (12-78); TOT PROT 8.3 g/dl (6.4-8.2)
[2016-10-16] MEDS: LACTOBACILLUS ACIDOPHILUS 1 EACH TAB (FP) PO SCH (11:00)
[2016-10-16] MEDS: BACITRACIN 15 GM TUBE TOPICAL OINTMENT TP SCH (11:01)
[2016-10-16] MEDS: AMINO ACIDS/PROTEIN HYDROLYS SUGAR-FREE 30 ML PACKET PO SCH (11:01)
--- NOTE | 2016-10-16 11:01 | PN ---
Physical Exam: SUBJECTIVE: Patient seen and examined OBJECTIVE: Vital Signs Period Temp Pulse Resp BP Sys/Santiago Pulse Ox Last 24 Hr 97.6 F-98.5 F 56-67 18-20 132-144/70-90 97 GENERAL/NEURO: Eyes open. Non-verbal. Does not follow commands. Non-purposeful movement. HEAD: Normal with no signs of trauma. NECK: Tracheostomy site closed, well-healed. EYES: PERRL, extraocular movements intact, sclera anicteric, conjunctiva clear. No ptosis. ENT: Ears normal, nares patent, oropharynx clear without exudates, moist mucous membranes. LUNGS: CTA HEART: Regular rate and rhythm, S1, S2 without murmur, rub or gallop. ABDOMEN: Soft, nontender, nondistended, normoactive bowel sounds, no guarding, no rebound, no hepatosplenomegaly, no masses. PEG tube in situ, skin clean, dry , no sign of infection EXTREMITIES: 2+ pulses, warm, well-perfused, no edema. SKIN: Healed stage III right and left buttock pressure ulcers Laboratory Results - last 24 hr 10/15/16 10/15/16 10/15/16 13:43 19:40 22:53 WBC RBC Hgb Hct MCV MCHC RDW Plt Count MPV Sodium Potassium Chloride Carbon Dioxide Anion Gap BUN Creatinine Creat Clearance w eGFR POC Glucometer 160 118 163 Random Glucose Calcium Phosphorus Magnesium Total Bilirubin AST ALT Alkaline Phosphatase Total Protein Albumin 10/16/16 10/16/16 10/16/16 06:31 07:00 07:00 WBC 7.3 RBC 4.02 Hgb 12.1 Hct 35.8 MCV 89.0 MCHC 33.8 RDW 16.9 H Plt Count 202 MPV 9.7 Sodium 139 Potassium 3.5 Chloride 101 Carbon Dioxide 30 Anion Gap 8 BUN 21 H Creatinine 0.8 D Creat Clearance w eGFR > 60 POC Glucometer 105 Random Glucose 103 Calcium 10.7 H Phosphorus 3.7 D Magnesium 2.3 Total Bilirubin 0.3 D AST 21 ALT 36 D Alkaline Phosphatase 138 H Total Protein 8.3 H Albumin 3.7 Active Medications Generic Name Dose Route Start Last Admin Trade Name Freq PRN Reason Stop Dose Admin Acetaminophen 650 mg 05/26/16 14:23 10/01/16 22:36 Tylenol Oral Solution - GT 650 mg Q4H PRN Administration FEVER Amino Acids 30 ml 06/28/16 10:00 10/15/16 13:03 Prostat Sugar-Free Packet - PO 30 ml DAILY KWAUK Administration Amlodipine Besylate 10 mg 12/30/15 10:00 10/15/16 13:03 Norvasc - GT 10 mg DAILY KWAKU Administration Bacitracin 1 applic 08/09/16 16:15 10/15/16 13:04 Bacitracin - TP 1 applic DAILY KWAKU Administration Guaifenesin 10 ml 12/29/15 10:43 08/02/16 10:38 Robitussin Dm - PO 10 ml Q6H PRN Administration COUGH Insulin Aspart 1 vial 09/17/16 16:30 10/16/16 06:36 Novolog Vial Sliding Scale - SQ Not Given ACHS [facility] Protocol Insulin Detemir 20 units 09/21/16 13:25 10/15/16 22:57 Levemir Vial SQ 20 units HS KWAKU Administration Lactobacillus Acidophilus 1 tab 12/30/15 10:00 10/15/16 13:04 Bacid - PO 1 tab DAILY KWAKU Administration Lisinopril 40 mg 12/30/15 10:00 10/15/16 13:03 Prinivil GT 40 mg DAILY KWAKU Administration Metoprolol Tartrate 150 mg 12/29/15 22:00 10/15/16 22:54 Lopressor - GT 150 mg BID KWAKU Administration Metoprolol Tartrate 5 mg 12/29/15 10:43 Lopressor Injection - IVPB Q6H PRN HYPERTENSION Ranitidine HCl 150 mg 08/27/16 12:15 10/15/16 22:54 Zantac Oral Solution - PO Not Given BID KWAKU Scopolamine HBr 1 patch 05/20/16 15:45 10/14/16 14:47 Transderm-Scop - TD 1 patch Q72H KWAKU Administration Simethicone 40 mg 08/25/16 10:00 10/15/16 13:03 Mylicon Liquid - PEG 40 mg DAILY KWAKU Administration ASSESSMENT/PLAN: 75 year old male with PMH of HTN, IDDM, inguinal hernia who presented to the ED with diverticular bleed s/p right hemicolectomy. 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 Sleep apnea --patient sleeping on back, mouth open, observed to stop breathing ~30 seconds --discussed with Dr. Agosto, likely central sleep apnea from anoxic brain injury; he will see patient Anoxic brain injury s/p brainstem CVAs --mental status unchanged Respiratory failure secondary to anoxic brain injury, resolved --on room air, nasal cannula PRN --trach removed 09/09/16 --duonebs PRN Hydronephrosis, chronic --renal function stable Right inguinal hernia --incidental finding on CT --no surgical intervention Functional quadriplegia secondary to anoxic brain injury --inability to feed, turn, or toilet independently; requires complete care Hypertension --BP well-controlled --continue lisinopril, metoprolol, amlodipine Stage III pressure ulcers buttocks, healed IDDM --Levemir --Novolog sliding scale coverage --fingersticks F/E/N Fluids/Nutrition: - 70 ml/hr Glucerna 1.5, 65 ml/hr water flushes; Prostat daily; Zantac BID Electrolytes: replete as indicated DVT prophylaxis --SCDs bilaterally (lower extremity doppler negative for DVTs 09/20/16) --no chemical anticoagulation 2/2 spontaneous gluteal bleed and severe GI bleed Dispo: continues to require inpatient care. DNR. Visit type - Emergency Visit Emergency Visit: Yes ED Registration Date: 06/27/15 Care time: The patient presented to the Emergency Department on the above date and was hospitalized for further evaluation of their emergent condition. - New Patient This patient is new to me today: No - Critical Care Critical Care patient: No
[2016-10-16] MEDS: METOPROLOL TARTRATE 50 MG TABLET (FP) GT SCH ×2 (11:02→21:51)
[2016-10-16] MEDS: amLODIPine BESYLATE 10 MG TABLET (FP) GT SCH (11:03)
[2016-10-16] MEDS: SIMETHICONE 40 MG/0.6 ML BOTTLE PEG SCH (11:03)
[2016-10-16] MEDS: LISINOPRIL 20 MG TABLET (FP) GT SCH (11:04)
[2016-10-16] MEDS: RANITIDINE HCL 150 MG/10 ML UNIT-DOSE CUP PO SCH ×2 (11:05→21:51)
[2016-10-16] MEDS: MULTIVITAMINS LIQUID THERAPEUTIC 118 ML BOT GT SCH (16:35)
[2016-10-16] MEDS: INSULIN DETEMIR 100 UNITS/ML MDV SQ SCH (21:52)
[2016-10-17] MEDS: INSULIN SLIDING SCALE (NOVOLOG) 1 VIAL SQ SCH ×4 (06:02→21:31)
[2016-10-17] MEDS: LACTOBACILLUS ACIDOPHILUS 1 EACH TAB (FP) PO SCH (10:00)
[2016-10-17] MEDS: LISINOPRIL 20 MG TABLET (FP) GT SCH (10:00)
[2016-10-17] MEDS: BACITRACIN 15 GM TUBE TOPICAL OINTMENT TP SCH (10:00)
[2016-10-17] MEDS: SIMETHICONE 40 MG/0.6 ML BOTTLE PEG SCH (10:00)
[2016-10-17] MEDS: RANITIDINE HCL 150 MG/10 ML UNIT-DOSE CUP PO SCH ×2 (10:00→21:22)
[2016-10-17] MEDS: METOPROLOL TARTRATE 50 MG TABLET (FP) GT SCH ×2 (10:00→21:18)
[2016-10-17] MEDS: AMINO ACIDS/PROTEIN HYDROLYS SUGAR-FREE 30 ML PACKET PO SCH (10:00)
[2016-10-17] MEDS: MULTIVITAMINS LIQUID THERAPEUTIC 118 ML BOT GT SCH (10:00)
[2016-10-17] MEDS: amLODIPine BESYLATE 10 MG TABLET (FP) GT SCH (10:00)
--- NOTE | 2016-10-17 10:22 | PN ---
Progress Note (short form) - Note Progress Note: Progress Note PULM/CCM Patient Name: CRUZ MAYFIELD Date of : 1940 Patient Status: Inpatient Attending Provider: Marcella Mcdonald Asked to follow up on Mr Mayfield. Well known to me from his prolonged illness. There was a concern for breathing pauses noted. During the pauses, there is a termination of respiratory effort. I observed the patient during sleep. There is no objective evidence of Obstructive Apnea. However, he is having somewhat cyclical Central events. No siginificant destauration has been documented. Gen: NAD Neck: Trach site with healing/granulation tissue Heart: S1S2 Lung: decreased breath sounds at the bases Abd: soft, (+) BS Ext: (+) PP IMP: Observed breathing pauses due to Central Apneas due to Anoxic Brain Injury No observed evidence of Obstructive Sleep Apnea S/P Decannulation Illiac bleed s/p IR procedure with apparent hemostasis achieved Acute Brainstem CVA S/P Right Hemicoletomy due to Acute Lower Diverticular GI Bleed Acute Blood Loss Anemia Acute Respiratory Failure Pneumonia likely aspiration HTN DM CKD C diff Ag (+) Problem List - Problems (1) Anoxic brain damage Code: G93.1 (2) Fever Code: R50.9 (3) 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 PLAN: - No specific therapy indicated in this clinical scenario. I fact, there is some data to suggest that treating the Central Apneas can increase his mortality. - O2 as needed - DVT/GI prophylaxis - D/C planning Dr Agosto
--- NOTE | 2016-10-17 13:36 | PN ---
Physical Exam: SUBJECTIVE: Patient seen and examined OBJECTIVE: Vital Signs Period Temp Pulse Resp BP Sys/Santiago Pulse Ox Last 24 Hr 97.6 F-98.7 F 57-81 20-20 138-146/80-87 97 GENERAL/NEURO: Eyes open. Non-verbal. Does not follow commands. Non-purposeful movement. HEAD: Normal with no signs of trauma. NECK: Tracheostomy site closed, well-healed. EYES: PERRL, extraocular movements intact, sclera anicteric, conjunctiva clear. No ptosis. ENT: Ears normal, nares patent, oropharynx clear without exudates, moist mucous membranes. LUNGS: CTA HEART: Regular rate and rhythm, S1, S2 without murmur, rub or gallop. ABDOMEN: Soft, nontender, nondistended, normoactive bowel sounds, no guarding, no rebound, no hepatosplenomegaly, no masses. PEG tube in situ, skin clean, dry , no sign of infection EXTREMITIES: 2+ pulses, warm, well-perfused, no edema. SKIN: Healed stage III right and left buttock pressure ulcers Laboratory Results - last 24 hr 10/16/16 10/16/16 10/17/16 16:40 21:48 05:29 POC Glucometer 172 103 132 Active Medications Generic Name Dose Route Start Last Admin Trade Name Freq PRN Reason Stop Dose Admin Acetaminophen 650 mg 05/26/16 14:23 10/01/16 22:36 Tylenol Oral Solution - GT 650 mg Q4H PRN Administration FEVER Amino Acids 30 ml 06/28/16 10:00 10/17/16 10:00 Prostat Sugar-Free Packet - PO 30 ml DAILY KWAKU Administration Amlodipine Besylate 10 mg 12/30/15 10:00 10/17/16 10:00 Norvasc - GT 10 mg DAILY KWAKU Administration Bacitracin 1 applic 08/09/16 16:15 10/17/16 10:00 Bacitracin - TP 1 applic DAILY KWAKU Administration Guaifenesin 10 ml 12/29/15 10:43 08/02/16 10:38 Robitussin Dm - PO 10 ml Q6H PRN Administration COUGH Insulin Aspart 1 vial 09/17/16 16:30 10/17/16 11:00 Novolog Vial Sliding Scale - SQ 4 units ACHS KWAKU Administration Protocol Insulin Detemir 20 units 09/21/16 13:25 10/16/16 21:52 Levemir Vial SQ 20 units HS KWAKU Administration Lactobacillus Acidophilus 1 tab 12/30/15 10:00 10/17/16 10:00 Bacid - PO 1 tab DAILY KWAKU Administration Lisinopril 40 mg 12/30/15 10:00 10/17/16 10:00 Prinivil GT 40 mg DAILY KWAKU Administration Metoprolol Tartrate 150 mg 12/29/15 22:00 10/17/16 10:00 Lopressor - GT 150 mg BID KWAKU Administration Metoprolol Tartrate 5 mg 12/29/15 10:43 Lopressor Injection - IVPB Q6H PRN HYPERTENSION Multivitamins 5 ml 10/16/16 16:30 10/17/16 10:00 Thera-Plus - GT 5 ml DAILY KWAKU Administration Ranitidine HCl 150 mg 08/27/16 12:15 10/17/16 10:00 Zantac Oral Solution - PO 150 mg BID KWAKU Administration Scopolamine HBr 1 patch 05/20/16 15:45 10/14/16 14:47 Transderm-Scop - TD 1 patch Q72H KWAKU Administration Simethicone 40 mg 08/25/16 10:00 10/17/16 10:00 Mylicon Liquid - PEG 40 mg DAILY KWAKU Administration ASSESSMENT/PLAN: 75 year old male with PMH of HTN, IDDM, inguinal hernia who presented to the ED with diverticular bleed s/p right hemicolectomy. 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 Central sleep apnea --seen and evaluated by pulmonary, breathing pauses are due to central apneas secondary to anoxic brain injury; no observed evidence of GRANT --no desaturation --O2 as needed Anoxic brain injury s/p brainstem CVAs --mental status unchanged Respiratory failure secondary to anoxic brain injury, resolved --on room air, nasal cannula PRN --trach removed 09/09/16 --duonebs PRN Hydronephrosis, chronic --renal function stable Right inguinal hernia --incidental finding on CT --no surgical intervention Functional quadriplegia secondary to anoxic brain injury --inability to feed, turn, or toilet independently; requires complete care --request Dr. Garcia to return for foot/toenail care Hypertension --BP well-controlled --continue lisinopril, metoprolol, amlodipine Stage III pressure ulcers buttocks, healed IDDM --Levemir --Novolog sliding scale coverage --fingersticks F/E/N Fluids/Nutrition: - 70 ml/hr Glucerna 1.5, 65 ml/hr water flushes; Prostat daily; Zantac BID Electrolytes: replete as indicated DVT prophylaxis --SCDs bilaterally (lower extremity doppler negative for DVTs 09/20/16) --no chemical anticoagulation 2/2 spontaneous gluteal bleed and severe GI bleed Dispo: continues to require inpatient care. DNR. Visit type - Emergency Visit Emergency Visit: Yes ED Registration Date: 06/27/15 Care time: The patient presented to the Emergency Department on the above date and was hospitalized for further evaluation of their emergent condition. - New Patient This patient is new to me today: No - Critical Care Critical Care patient: No
[2016-10-17] MEDS: SCOPOLAMINE HYDROBROMIDE 1 PATCH PATCH.TD72 TD SCH (15:45)
--- NOTE | 2016-10-17 16:56 | CONSULT ---
Consult - text type - Consultation Consultation Note: Podiatry Consultation: 76 year old pleasant, nonverbal man seen and evaluated at bedside, NAD. Podiatry consultation requested for trimming of elongated, discolored toe nails x 10. BINA: Pedal pulses palpable, TG wnl, CFT brisk to all toes bilaterally. Toe nails are elongated, discolored, thickened with subungual debris x 10. Tenderness elicited on palpation of nail units. There are no open wounds, no drainage, no signs of infection. Imp: 76 year old M with onychomycosis x 10 1. Manual debridement of mycotic nails x 10 with nail nipper. Pt tolerated procedure well without complications. 2. Patient receiving appropriate foot care and will maintain proper foot hygiene. 3. Patient may f/u with me as outpatient in approximately 3 months for further podiatric care. Thank you for the courtesy of the consultation. Kell Garcia DPM
[2016-10-17] MEDS: INSULIN DETEMIR 100 UNITS/ML MDV SQ SCH (21:31)
[2016-10-18] MEDS: INSULIN SLIDING SCALE (NOVOLOG) 1 VIAL SQ SCH ×4 (06:05→22:10)
[2016-10-18] MEDS: LACTOBACILLUS ACIDOPHILUS 1 EACH TAB (FP) PO SCH (10:46)
[2016-10-18] MEDS: METOPROLOL TARTRATE 50 MG TABLET (FP) GT SCH ×2 (10:46→22:10)
[2016-10-18] MEDS: amLODIPine BESYLATE 10 MG TABLET (FP) GT SCH (10:47)
[2016-10-18] MEDS: LISINOPRIL 20 MG TABLET (FP) GT SCH (10:47)
[2016-10-18] MEDS: AMINO ACIDS/PROTEIN HYDROLYS SUGAR-FREE 30 ML PACKET PO SCH (10:47)
[2016-10-18] MEDS: SIMETHICONE 40 MG/0.6 ML BOTTLE PEG SCH (10:47)
[2016-10-18] MEDS: RANITIDINE HCL 150 MG/10 ML UNIT-DOSE CUP PO SCH ×2 (10:48→22:24)
[2016-10-18] MEDS: MULTIVITAMINS LIQUID THERAPEUTIC 118 ML BOT GT SCH (10:48)
[2016-10-18] MEDS: BACITRACIN 15 GM TUBE TOPICAL OINTMENT TP SCH (10:49)
--- NOTE | 2016-10-18 11:03 | PN ---
Progress Note (short form) - Note Progress Note: Subjective: The patient was seen and examined at the bedside, non-verbal. Tolerating room air well No breathing pauses observed Current Medications Generic Name Dose Route Start Last Admin Trade Name Freq PRN Reason Stop Dose Admin Acetaminophen 650 mg 05/26/16 14:23 10/01/16 22:36 Tylenol Oral Solution - GT 650 mg Q4H PRN Administration FEVER Amino Acids 30 ml 06/28/16 10:00 10/18/16 10:47 Prostat Sugar-Free Packet - PO 30 ml DAILY KWAKU Administration Amlodipine Besylate 10 mg 12/30/15 10:00 10/18/16 10:47 Norvasc - GT 10 mg DAILY KWAKU Administration Bacitracin 1 applic 08/09/16 16:15 10/18/16 10:49 Bacitracin - TP Not Given DAILY KWAKU Guaifenesin 10 ml 12/29/15 10:43 08/02/16 10:38 Robitussin Dm - PO 10 ml Q6H PRN Administration COUGH Insulin Aspart 1 vial 09/17/16 16:30 10/18/16 06:05 Novolog Vial Sliding Scale - SQ Not Given ACHS KWAKU Protocol Insulin Detemir 20 units 09/21/16 13:25 10/17/16 21:31 Levemir Vial SQ 20 units HS KWAKU Administration Lactobacillus Acidophilus 1 tab 12/30/15 10:00 10/18/16 10:46 Bacid - PO 1 tab DAILY KWAKU Administration Lisinopril 40 mg 12/30/15 10:00 10/18/16 10:47 Prinivil GT 40 mg DAILY KWAKU Administration Metoprolol Tartrate 150 mg 12/29/15 22:00 10/18/16 10:46 Lopressor - GT 150 mg BID KWAKU Administration Metoprolol Tartrate 5 mg 12/29/15 10:43 Lopressor Injection - IVPB Q6H PRN HYPERTENSION Multivitamins 5 ml 10/16/16 16:30 10/18/16 10:48 Thera-Plus - GT 5 ml DAILY KWAKU Administration Ranitidine HCl 150 mg 08/27/16 12:15 10/18/16 10:48 Zantac Oral Solution - PO 150 mg BID KWAKU Administration Scopolamine HBr 1 patch 05/20/16 15:45 10/17/16 15:45 Transderm-Scop - TD 1 patch Q72H KWAKU Administration Simethicone 40 mg 08/25/16 10:00 10/18/16 10:47 Mylicon Liquid - PEG 40 mg DAILY KWAKU Administration Objective: Vital Signs Period Temp Pulse Resp BP Sys/Santiago Pulse Ox Last 24 Hr 97.9 F-98.3 F 62-80 18-20 127-151/72-89 100-100 Physical Exam: General: No acute distress, tracking with eyes HEENT: Tracheal stoma Neuro: Eye tracking to verbal stimulus Pulm: CTA anteriorly CV: RRR, S1S2 Abd: Soft, non-distended. Normoactive bowel sounds. Peg tube c/d/i Ext: Warm, well-perfused. 2+ DP/PT bilaterally CBCD WBC 7.3 K/mm3 (4.0-10.0) 10/16/16 07:00 RBC 4.02 M/mm3 (4.00-5.60) 10/16/16 07:00 Hgb 12.1 GM/dL (11.7-16.9) 10/16/16 07:00 Hct 35.8 % (35.4-49) 10/16/16 07:00 MCV 89.0 fl (80-96) 10/16/16 07:00 MCHC 33.8 g/dl (32.0-35.9) 10/16/16 07:00 RDW 16.9 % (11.9-15.9) H 10/16/16 07:00 Plt Count 202 K/MM3 (134-434) 10/16/16 07:00 MPV 9.7 fl (7.5-11.1) 10/16/16 07:00 CMP Sodium 139 mmol/L (136-145) 10/16/16 07:00 Potassium 3.5 mmol/L (3.5-5.1) 10/16/16 07:00 Chloride 101 mmol/L (98-107) 10/16/16 07:00 Carbon Dioxide 30 mmol/L (21-32) 10/16/16 07:00 Anion Gap 8 (8-16) 10/16/16 07:00 BUN 21 mg/dL (7-18) H 10/16/16 07:00 Creatinine 0.8 mg/dL (0.7-1.3) D 10/16/16 07:00 Creat Clearance w eGFR > 60 (>60) 10/16/16 07:00 Random Glucose 103 mg/dL (74-106) 10/16/16 07:00 Calcium 10.7 mg/dL (8.5-10.1) H 10/16/16 07:00 Total Bilirubin 0.3 mg/dL (0.2-1.0) D 10/16/16 07:00 AST 21 U/L (15-37) 10/16/16 07:00 ALT 36 U/L (12-78) D 10/16/16 07:00 Alkaline Phosphatase 138 U/L (45-117) H 10/16/16 07:00 Total Protein 8.3 g/dl (6.4-8.2) H 10/16/16 07:00 Albumin 3.7 g/dl (3.4-5.0) 10/16/16 07:00 CARDIAC ENZYMES Creatine Kinase 62 IU/L (38-174) 06/28/15 09:35 Troponin I 0.07 ng/ml (0.03-0.5) D 07/09/15 05:00 Assessment: 75 year old male with PMHx of HTN, IDDM, inguinal hernia who presented to the ED with diverticular bleed s/p Righ hemicolectomy with 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 Plan: 1. Anoxic brain injury s/p brainstem CVAs - Mental status unchanged 2. 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 Respiratory failure secondary to anoxic brain injury - Cont O2 via room air, NC when needed - Trach removed 09/09/16 - Duonebs PRN 4. HTN - Continue lisinopril, amlodipine, lopressor 5. Multiple pressure ulcers - Turn and position q2h - Local wound care 6. IDDM - Continue Levemir at 20u sq qhs - ISS BGM ACHS 7. F/E/N: - 70 ml/hr Glucerna 1.5, 65 ml/hr water flushes - Prostat daily - Continue Zantac bid 8. Prophylaxis: - SCDs bilaterally (lower extremity doppler negative for DVTs 09/20/16) - No chemical anticoagulation 2/2 spontaneous gluteal bleed and severe GI bleed - Functional quadriplegia CODE STATUS: DNR Visit type - Emergency Visit Emergency Visit: Yes ED Registration Date: 06/27/15 Care time: The patient presented to the Emergency Department on the above date and was hospitalized for further evaluation of their emergent condition. - New Patient This patient is new to me today: No - Critical Care Critical Care patient: No
[2016-10-18] MEDS: INSULIN DETEMIR 100 UNITS/ML MDV SQ SCH (22:09)
[2016-10-19] MEDS: INSULIN SLIDING SCALE (NOVOLOG) 1 VIAL SQ SCH ×4 (06:02→22:52)
[2016-10-19] MEDS: LACTOBACILLUS ACIDOPHILUS 1 EACH TAB (FP) PO SCH (10:52)
[2016-10-19] MEDS: AMINO ACIDS/PROTEIN HYDROLYS SUGAR-FREE 30 ML PACKET PO SCH (10:52)
[2016-10-19] MEDS: SIMETHICONE 40 MG/0.6 ML BOTTLE PEG SCH (10:52)
[2016-10-19] MEDS: RANITIDINE HCL 150 MG/10 ML UNIT-DOSE CUP PO SCH ×2 (10:52→22:53)
[2016-10-19] MEDS: BACITRACIN 15 GM TUBE TOPICAL OINTMENT TP SCH (10:52)
[2016-10-19] MEDS: LISINOPRIL 20 MG TABLET (FP) GT SCH (10:53)
[2016-10-19] MEDS: METOPROLOL TARTRATE 50 MG TABLET (FP) GT SCH ×2 (10:53→22:52)
[2016-10-19] MEDS: amLODIPine BESYLATE 10 MG TABLET (FP) GT SCH (10:53)
[2016-10-19] MEDS: MULTIVITAMINS LIQUID THERAPEUTIC 118 ML BOT GT SCH (10:54)
--- NOTE | 2016-10-19 11:12 | PN ---
Progress Note (short form) - Note Progress Note: Subjective: The patient was seen and examined at the bedside, non-verbal. Tolerating room air well No breathing pauses observed Current Medications Generic Name Dose Route Start Last Admin Trade Name Freq PRN Reason Stop Dose Admin Acetaminophen 650 mg 05/26/16 14:23 10/01/16 22:36 Tylenol Oral Solution - GT 650 mg Q4H PRN Administration FEVER Amino Acids 30 ml 06/28/16 10:00 10/19/16 10:52 Prostat Sugar-Free Packet - PO 30 ml DAILY KWAKU Administration Amlodipine Besylate 10 mg 12/30/15 10:00 10/19/16 10:53 Norvasc - GT 10 mg DAILY KWAKU Administration Bacitracin 1 applic 08/09/16 16:15 10/19/16 10:52 Bacitracin - TP 1 applic DAILY KWAKU Administration Guaifenesin 10 ml 12/29/15 10:43 08/02/16 10:38 Robitussin Dm - PO 10 ml Q6H PRN Administration COUGH Insulin Aspart 1 vial 09/17/16 16:30 10/19/16 06:02 Novolog Vial Sliding Scale - SQ 4 units ACHS KWAKU Administration Protocol Insulin Detemir 20 units 09/21/16 13:25 10/18/16 22:09 Levemir Vial SQ 20 units HS KWAKU Administration Lactobacillus Acidophilus 1 tab 12/30/15 10:00 10/19/16 10:52 Bacid - PO 1 tab DAILY KWAKU Administration Lisinopril 40 mg 12/30/15 10:00 10/19/16 10:53 Prinivil GT 40 mg DAILY KWAKU Administration Metoprolol Tartrate 150 mg 12/29/15 22:00 10/19/16 10:53 Lopressor - GT 150 mg BID KWAKU Administration Metoprolol Tartrate 5 mg 12/29/15 10:43 Lopressor Injection - IVPB Q6H PRN HYPERTENSION Multivitamins 5 ml 10/16/16 16:30 10/19/16 10:54 Thera-Plus - GT 5 ml DAILY KWAKU Administration Ranitidine HCl 150 mg 08/27/16 12:15 10/19/16 10:52 Zantac Oral Solution - PO 150 mg BID KWAKU Administration Scopolamine HBr 1 patch 05/20/16 15:45 10/17/16 15:45 Transderm-Scop - TD 1 patch Q72H KWAKU Administration Simethicone 40 mg 08/25/16 10:00 10/19/16 10:52 Mylicon Liquid - PEG 40 mg DAILY KWAKU Administration Objective: Vital Signs Period Temp Pulse Resp BP Sys/Santiago Pulse Ox Last 24 Hr 97.0 F-98.7 F 68-79 18-20 127-158/61-85 100 Physical Exam: General: No acute distress, tracking with eyes HEENT: Tracheal stoma Neuro: Eye tracking to verbal stimulus Pulm: CTA anteriorly CV: RRR, S1S2 Abd: Soft, non-distended. Normoactive bowel sounds. Peg tube c/d/i Ext: Warm, well-perfused. 2+ DP/PT bilaterally CBCD WBC 7.3 K/mm3 (4.0-10.0) 10/16/16 07:00 RBC 4.02 M/mm3 (4.00-5.60) 10/16/16 07:00 Hgb 12.1 GM/dL (11.7-16.9) 10/16/16 07:00 Hct 35.8 % (35.4-49) 10/16/16 07:00 MCV 89.0 fl (80-96) 10/16/16 07:00 MCHC 33.8 g/dl (32.0-35.9) 10/16/16 07:00 RDW 16.9 % (11.9-15.9) H 10/16/16 07:00 Plt Count 202 K/MM3 (134-434) 10/16/16 07:00 MPV 9.7 fl (7.5-11.1) 10/16/16 07:00 CMP Sodium 139 mmol/L (136-145) 10/16/16 07:00 Potassium 3.5 mmol/L (3.5-5.1) 10/16/16 07:00 Chloride 101 mmol/L (98-107) 10/16/16 07:00 Carbon Dioxide 30 mmol/L (21-32) 10/16/16 07:00 Anion Gap 8 (8-16) 10/16/16 07:00 BUN 21 mg/dL (7-18) H 10/16/16 07:00 Creatinine 0.8 mg/dL (0.7-1.3) D 10/16/16 07:00 Creat Clearance w eGFR > 60 (>60) 10/16/16 07:00 Random Glucose 103 mg/dL (74-106) 10/16/16 07:00 Calcium 10.7 mg/dL (8.5-10.1) H 10/16/16 07:00 Total Bilirubin 0.3 mg/dL (0.2-1.0) D 10/16/16 07:00 AST 21 U/L (15-37) 10/16/16 07:00 ALT 36 U/L (12-78) D 10/16/16 07:00 Alkaline Phosphatase 138 U/L (45-117) H 10/16/16 07:00 Total Protein 8.3 g/dl (6.4-8.2) H 10/16/16 07:00 Albumin 3.7 g/dl (3.4-5.0) 10/16/16 07:00 CARDIAC ENZYMES Creatine Kinase 62 IU/L (38-174) 06/28/15 09:35 Troponin I 0.07 ng/ml (0.03-0.5) D 07/09/15 05:00 Assessment: 75 year old male with PMHx of HTN, IDDM, inguinal hernia who presented to the ED with diverticular bleed s/p Righ hemicolectomy with 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 Plan: 1. Anoxic brain injury s/p brainstem CVAs - Mental status unchanged 2. 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 Respiratory failure secondary to anoxic brain injury - Cont O2 via room air, NC when needed - Trach removed 09/09/16 - Duonebs PRN 4. HTN - Continue lisinopril, amlodipine, lopressor 5. Multiple pressure ulcers - Turn and position q2h - Local wound care 6. IDDM - Continue Levemir at 20u sq qhs - ISS BGM ACHS 7. F/E/N: - 70 ml/hr Glucerna 1.5, 65 ml/hr water flushes - Prostat daily - Continue Zantac bid 8. Prophylaxis: - SCDs bilaterally (lower extremity doppler negative for DVTs 09/20/16) - No chemical anticoagulation 2/2 spontaneous gluteal bleed and severe GI bleed - Functional quadriplegia CODE STATUS: DNR Visit type - Emergency Visit Emergency Visit: Yes ED Registration Date: 06/27/15 Care time: The patient presented to the Emergency Department on the above date and was hospitalized for further evaluation of their emergent condition. - New Patient This patient is new to me today: No - Critical Care Critical Care patient: No
[2016-10-19] MEDS: INSULIN DETEMIR 100 UNITS/ML MDV SQ SCH (22:52)
[2016-10-20] MEDS: INSULIN SLIDING SCALE (NOVOLOG) 1 VIAL SQ SCH ×4 (06:34→23:13)
--- NOTE | 2016-10-20 09:39 | PN ---
Progress Note (short form) - Note Progress Note: Subjective: The patient was seen and examined at the bedside, non-verbal. Tolerating room air well No breathing pauses observed Current Medications Generic Name Dose Route Start Last Admin Trade Name Freq PRN Reason Stop Dose Admin Acetaminophen 650 mg 05/26/16 14:23 10/01/16 22:36 Tylenol Oral Solution - GT 650 mg Q4H PRN Administration FEVER Amino Acids 30 ml 06/28/16 10:00 10/19/16 10:52 Prostat Sugar-Free Packet - PO 30 ml DAILY KWAKU Administration Amlodipine Besylate 10 mg 12/30/15 10:00 10/19/16 10:53 Norvasc - GT 10 mg DAILY KWAKU Administration Bacitracin 1 applic 08/09/16 16:15 10/19/16 10:52 Bacitracin - TP 1 applic DAILY KWAKU Administration Guaifenesin 10 ml 12/29/15 10:43 08/02/16 10:38 Robitussin Dm - PO 10 ml Q6H PRN Administration COUGH Insulin Aspart 1 vial 09/17/16 16:30 10/20/16 06:34 Novolog Vial Sliding Scale - SQ Not Given ACHS [facility] Protocol Insulin Detemir 20 units 09/21/16 13:25 10/19/16 22:52 Levemir Vial SQ 20 units HS KWAKU Administration Lactobacillus Acidophilus 1 tab 12/30/15 10:00 10/19/16 10:52 Bacid - PO 1 tab DAILY KWAKU Administration Lisinopril 40 mg 12/30/15 10:00 10/19/16 10:53 Prinivil GT 40 mg DAILY KWAKU Administration Metoprolol Tartrate 150 mg 12/29/15 22:00 10/19/16 22:52 Lopressor - GT 150 mg BID KWAKU Administration Metoprolol Tartrate 5 mg 12/29/15 10:43 Lopressor Injection - IVPB Q6H PRN HYPERTENSION Multivitamins 5 ml 10/16/16 16:30 10/19/16 10:54 Thera-Plus - GT 5 ml DAILY KWAKU Administration Ranitidine HCl 150 mg 08/27/16 12:15 10/19/16 22:53 Zantac Oral Solution - PO 150 mg BID KWAKU Administration Scopolamine HBr 1 patch 05/20/16 15:45 10/17/16 15:45 Transderm-Scop - TD 1 patch Q72H KWAKU Administration Simethicone 40 mg 08/25/16 10:00 10/19/16 10:52 Mylicon Liquid - PEG 40 mg DAILY KWAKU Administration Objective: Vital Signs Period Temp Pulse Resp BP Sys/Santiago Pulse Ox Last 24 Hr 97.0 F-98.5 F 77-79 18-18 141-158/62-87 100 Physical Exam: General: No acute distress, tracking with eyes HEENT: Tracheal stoma Neuro: Eye tracking to verbal stimulus Pulm: CTA anteriorly CV: RRR, S1S2 Abd: Soft, non-distended. Normoactive bowel sounds. Peg tube c/d/i Ext: Warm, well-perfused. 2+ DP/PT bilaterally CBCD WBC 7.3 K/mm3 (4.0-10.0) 10/16/16 07:00 RBC 4.02 M/mm3 (4.00-5.60) 10/16/16 07:00 Hgb 12.1 GM/dL (11.7-16.9) 10/16/16 07:00 Hct 35.8 % (35.4-49) 10/16/16 07:00 MCV 89.0 fl (80-96) 10/16/16 07:00 MCHC 33.8 g/dl (32.0-35.9) 10/16/16 07:00 RDW 16.9 % (11.9-15.9) H 10/16/16 07:00 Plt Count 202 K/MM3 (134-434) 10/16/16 07:00 MPV 9.7 fl (7.5-11.1) 10/16/16 07:00 CMP Sodium 139 mmol/L (136-145) 10/16/16 07:00 Potassium 3.5 mmol/L (3.5-5.1) 10/16/16 07:00 Chloride 101 mmol/L (98-107) 10/16/16 07:00 Carbon Dioxide 30 mmol/L (21-32) 10/16/16 07:00 Anion Gap 8 (8-16) 10/16/16 07:00 BUN 21 mg/dL (7-18) H 10/16/16 07:00 Creatinine 0.8 mg/dL (0.7-1.3) D 10/16/16 07:00 Creat Clearance w eGFR > 60 (>60) 10/16/16 07:00 Random Glucose 103 mg/dL (74-106) 10/16/16 07:00 Calcium 10.7 mg/dL (8.5-10.1) H 10/16/16 07:00 Total Bilirubin 0.3 mg/dL (0.2-1.0) D 10/16/16 07:00 AST 21 U/L (15-37) 10/16/16 07:00 ALT 36 U/L (12-78) D 10/16/16 07:00 Alkaline Phosphatase 138 U/L (45-117) H 10/16/16 07:00 Total Protein 8.3 g/dl (6.4-8.2) H 10/16/16 07:00 Albumin 3.7 g/dl (3.4-5.0) 10/16/16 07:00 CARDIAC ENZYMES Creatine Kinase 62 IU/L (38-174) 06/28/15 09:35 Troponin I 0.07 ng/ml (0.03-0.5) D 07/09/15 05:00 Assessment: 75 year old male with PMHx of HTN, IDDM, inguinal hernia who presented to the ED with diverticular bleed s/p Righ hemicolectomy with 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 Plan: 1. Anoxic brain injury s/p brainstem CVAs - Mental status unchanged 2. 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 Respiratory failure secondary to anoxic brain injury - Cont O2 via room air, NC when needed - Trach removed 09/09/16 - Duonebs PRN 4. HTN - Continue lisinopril, amlodipine, lopressor 5. Multiple pressure ulcers - Turn and position q2h - Local wound care 6. IDDM - Continue Levemir at 20u sq qhs - ISS BGM ACHS 7. F/E/N: - 70 ml/hr Glucerna 1.5, 65 ml/hr water flushes - Prostat daily - Continue Zantac bid 8. Prophylaxis: - SCDs bilaterally (lower extremity doppler negative for DVTs 09/20/16) - No chemical anticoagulation 2/2 spontaneous gluteal bleed and severe GI bleed - Functional quadriplegia CODE STATUS: DNR Visit type - Emergency Visit Emergency Visit: Yes ED Registration Date: 06/27/15 Care time: The patient presented to the Emergency Department on the above date and was hospitalized for further evaluation of their emergent condition. - New Patient This patient is new to me today: No - Critical Care Critical Care patient: No
[2016-10-20] MEDS: METOPROLOL TARTRATE 50 MG TABLET (FP) GT SCH ×2 (12:50→23:13)
[2016-10-20] MEDS: amLODIPine BESYLATE 10 MG TABLET (FP) GT SCH (12:51)
[2016-10-20] MEDS: AMINO ACIDS/PROTEIN HYDROLYS SUGAR-FREE 30 ML PACKET PO SCH (12:51)
[2016-10-20] MEDS: LISINOPRIL 20 MG TABLET (FP) GT SCH (12:51)
[2016-10-20] MEDS: LACTOBACILLUS ACIDOPHILUS 1 EACH TAB (FP) PO SCH (12:51)
[2016-10-20] MEDS: SIMETHICONE 40 MG/0.6 ML BOTTLE PEG SCH (12:52)
[2016-10-20] MEDS: RANITIDINE HCL 150 MG/10 ML UNIT-DOSE CUP PO SCH ×2 (12:52→23:13)
[2016-10-20] MEDS: BACITRACIN 15 GM TUBE TOPICAL OINTMENT TP SCH (12:53)
[2016-10-20] MEDS: MULTIVITAMINS LIQUID THERAPEUTIC 118 ML BOT GT SCH (12:53)
[2016-10-20] MEDS: SCOPOLAMINE HYDROBROMIDE 1 PATCH PATCH.TD72 TD SCH (18:18)
[2016-10-20] MEDS: INSULIN DETEMIR 100 UNITS/ML MDV SQ SCH (23:12)
[2016-10-21] MEDS: INSULIN SLIDING SCALE (NOVOLOG) 1 VIAL SQ SCH ×4 (06:36→23:00)
[2016-10-21] MEDS: LACTOBACILLUS ACIDOPHILUS 1 EACH TAB (FP) PO SCH (10:13)
[2016-10-21] MEDS: METOPROLOL TARTRATE 50 MG TABLET (FP) GT SCH ×2 (10:13→23:00)
[2016-10-21] MEDS: RANITIDINE HCL 150 MG/10 ML UNIT-DOSE CUP PO SCH ×2 (10:13→23:00)
[2016-10-21] MEDS: LISINOPRIL 20 MG TABLET (FP) GT SCH (10:13)
[2016-10-21] MEDS: AMINO ACIDS/PROTEIN HYDROLYS SUGAR-FREE 30 ML PACKET PO SCH (10:14)
[2016-10-21] MEDS: amLODIPine BESYLATE 10 MG TABLET (FP) GT SCH (10:14)
[2016-10-21] MEDS: BACITRACIN 15 GM TUBE TOPICAL OINTMENT TP SCH (10:14)
[2016-10-21] MEDS: SIMETHICONE 40 MG/0.6 ML BOTTLE PEG SCH (10:21)
[2016-10-21] MEDS: MULTIVITAMINS LIQUID THERAPEUTIC 118 ML BOT GT SCH (10:22)
--- NOTE | 2016-10-21 16:32 | PN ---
Physical Exam: SUBJECTIVE: Patient seen and examined, pt nonverbal, opens eyes to verbal stimuli. Nurse reports no episodes sleep apnea. OBJECTIVE: Vital Signs 3 Period Temp Pulse Resp BP Sys/Santiago Pulse Ox Last 24 Hr 97.6 F-98.4 F 65-76 18-20 120-140/76-87 100-100 GENERAL: The patient is awake, alert, in no acute distress. HEAD: Normal with no signs of trauma. EYES: PERRL, extraocular movements grossly intact, sclera anicteric, conjunctiva clear. No ptosis. ENT: Ears normal, nares patent, oropharynx clear without exudates, moist mucous membranes. NECK: Trachea midline, full range of motion, supple. LUNGS: Breath sounds equal, clear to auscultation bilaterally, no wheezes, no crackles, no accessory muscle use. HEART: Regular rate and rhythm, S1, S2 without murmur, rub or gallop. ABDOMEN: Soft, nontender, nondistended, normoactive bowel sounds, no guarding, no rebound, no hepatosplenomegaly, no masses. EXTREMITIES: 2+ pulses, warm, well-perfused, no edema. NEUROLOGICAL: nonverbal, does not follow commands, unable to asses. PSYCH: Normal mood, normal affect. SKIN: Warm, dry, normal turgor. multiple healing PU to sacral area Laboratory Results - last 24 hr 3 10/20/16 10/20/16 10/21/16 18:23 23:01 06:32 POC Glucometer 143 153 135 3 10/21/16 12:28 POC Glucometer 149 Active Medications 3 Generic Name Dose Route Start Last Admin Trade Name Ginette PRN Reason Stop Dose Admin Acetaminophen 650 mg 05/26/16 14:23 10/01/16 22:36 Tylenol Oral Solution - GT 650 mg Q4H PRN Administration FEVER Amino Acids 30 ml 06/28/16 10:00 10/21/16 10:14 Prostat Sugar-Free Packet - PO 30 ml DAILY KWAKU Administration Amlodipine Besylate 10 mg 12/30/15 10:00 10/21/16 10:14 Norvasc - GT 10 mg DAILY KWAKU Administration Bacitracin 1 applic 08/09/16 16:15 10/21/16 10:14 Bacitracin - TP 1 applic DAILY KWAKU Administration Guaifenesin 10 ml 12/29/15 10:43 08/02/16 10:38 Robitussin Dm - PO 10 ml Q6H PRN Administration COUGH Insulin Aspart 1 vial 09/17/16 16:30 10/21/16 12:31 Novolog Vial Sliding Scale - SQ Not Given ACHS [facility] Protocol Insulin Detemir 20 units 09/21/16 13:25 10/20/16 23:12 Levemir Vial SQ 20 units HS KWAKU Administration Lactobacillus Acidophilus 1 tab 12/30/15 10:00 10/21/16 10:13 Bacid - PO 1 tab DAILY KWAKU Administration Lisinopril 40 mg 12/30/15 10:00 10/21/16 10:13 Prinivil GT 40 mg DAILY KWAKU Administration Metoprolol Tartrate 150 mg 12/29/15 22:00 10/21/16 10:13 Lopressor - GT 150 mg BID KWAKU Administration Metoprolol Tartrate 5 mg 12/29/15 10:43 Lopressor Injection - IVPB Q6H PRN HYPERTENSION Multivitamins 5 ml 10/16/16 16:30 10/21/16 10:22 Thera-Plus - GT 5 ml DAILY KWAKU Administration Ranitidine HCl 150 mg 08/27/16 12:15 10/21/16 10:13 Zantac Oral Solution - PO 150 mg BID KWAKU Administration Scopolamine HBr 1 patch 05/20/16 15:45 10/20/16 18:18 Transderm-Scop - TD 1 patch Q72H KWAKU Administration Simethicone 40 mg 08/25/16 10:00 10/21/16 10:21 Mylicon Liquid - PEG 40 mg DAILY KWAKU Administration ASSESSMENT/PLAN: 75 year old male with PMH of HTN, IDDM, inguinal hernia who presented to the ED with diverticular bleed s/p right hemicolectomy. 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 Central sleep apnea - seen and evaluated by pulmonary, breathing pauses are due to central apneas secondary to anoxic brain injury; no observed evidence of GRANT - no desaturation - O2 as needed Anoxic brain injury s/p brainstem CVAs with functional quadriplegia - mental status unchanged, remains unable to feed, turn, toilet or move purposefully, cont supportive care - increased risk for aspiration pna, pressure ulcers Respiratory failure secondary to anoxic brain injury, resolved - on room air, nasal cannula PRN - trach removed 09/09/16 - magaly PRN Hydronephrosis, chronic - renal function stable, no intervention at this time Right inguinal hernia - incidental finding on CT - no surgical intervention Hypertension - BP well-controlled - continue lisinopril, metoprolol, amlodipine Stage III pressure ulcers buttocks, healing - cont allevyn IDDM - Levemir - Novolog sliding scale coverage - fingersticks F/E/N Fluids/Nutrition: - 70 ml/hr Glucerna 1.5, 65 ml/hr water flushes; Prostat daily; Zantac BID Electrolytes: replete as indicated, BMP weekly or as needed DVT prophylaxis - SCDs bilaterally (lower extremity doppler negative for DVTs 09/20/16) - no chemical anticoagulation 2/2 spontaneous gluteal bleed and severe GI bleed Dispo: continues to require inpatient care. DNR. Visit type - Emergency Visit Emergency Visit: Yes ED Registration Date: 06/27/15 Care time: The patient presented to the Emergency Department on the above date and was hospitalized for further evaluation of their emergent condition. - New Patient This patient is new to me today: No - Critical Care Critical Care patient: No
[2016-10-21] MEDS: INSULIN DETEMIR 100 UNITS/ML MDV SQ SCH (23:00)
[2016-10-22] MEDS: INSULIN SLIDING SCALE (NOVOLOG) 1 VIAL SQ SCH ×4 (06:26→21:55)
[2016-10-22] MEDS: METOPROLOL TARTRATE 50 MG TABLET (FP) GT SCH ×2 (10:33→21:55)
[2016-10-22] MEDS: amLODIPine BESYLATE 10 MG TABLET (FP) GT SCH (10:33)
[2016-10-22] MEDS: LISINOPRIL 20 MG TABLET (FP) GT SCH (10:34)
[2016-10-22] MEDS: LACTOBACILLUS ACIDOPHILUS 1 EACH TAB (FP) PO SCH (10:34)
[2016-10-22] MEDS: RANITIDINE HCL 150 MG/10 ML UNIT-DOSE CUP PO SCH ×2 (10:34→21:54)
[2016-10-22] MEDS: BACITRACIN 15 GM TUBE TOPICAL OINTMENT TP SCH (10:35)
[2016-10-22] MEDS: SIMETHICONE 40 MG/0.6 ML BOTTLE PEG SCH (10:35)
[2016-10-22] MEDS: MULTIVITAMINS LIQUID THERAPEUTIC 118 ML BOT GT SCH (10:36)
[2016-10-22] MEDS: AMINO ACIDS/PROTEIN HYDROLYS SUGAR-FREE 30 ML PACKET PO SCH (10:36)
--- NOTE | 2016-10-22 18:59 | PN ---
Physical Exam: SUBJECTIVE: Patient seen and examined. No acute events overnight OBJECTIVE: Vital Signs Period Temp Pulse Resp BP Sys/Santiago Pulse Ox Last 24 Hr 97.2 F-99.2 F 73-87 18-20 138-152/85-92 95-98 Physical Exam: General: No acute distress, tracking with eyes HEENT: Tracheal stoma Pulm: CTA anteriorly CV: RRR, S1S2 Abd: Soft, non-distended. Normoactive bowel sounds. Peg tube c/d/i Ext: Warm, well-perfused. 2+ DP/PT bilaterally Neuro: awake, alert, nonverbal Laboratory Results - last 24 hr 10/21/16 10/22/16 10/22/16 22:40 05:57 11:10 POC Glucometer 166 158 127 10/22/16 16:25 POC Glucometer 155 Active Medications Generic Name Dose Route Start Last Admin Trade Name Freq PRN Reason Stop Dose Admin Acetaminophen 650 mg 05/26/16 14:23 10/01/16 22:36 Tylenol Oral Solution - GT 650 mg Q4H PRN Administration FEVER Amino Acids 30 ml 06/28/16 10:00 10/22/16 10:36 Prostat Sugar-Free Packet - PO 30 ml DAILY KWAKU Administration Amlodipine Besylate 10 mg 12/30/15 10:00 10/22/16 10:33 Norvasc - GT 10 mg DAILY KWAKU Administration Bacitracin 1 applic 08/09/16 16:15 10/22/16 10:35 Bacitracin - TP 1 applic DAILY KWAKU Administration Guaifenesin 10 ml 12/29/15 10:43 08/02/16 10:38 Robitussin Dm - PO 10 ml Q6H PRN Administration COUGH Insulin Aspart 1 vial 09/17/16 16:30 10/22/16 16:28 Novolog Vial Sliding Scale - SQ 4 units ACHS KWAKU Administration Protocol Insulin Detemir 20 units 09/21/16 13:25 10/21/16 23:00 Levemir Vial SQ 20 units HS KWAKU Administration Lactobacillus Acidophilus 1 tab 12/30/15 10:00 10/22/16 10:34 Bacid - PO 1 tab DAILY KWAKU Administration Lisinopril 40 mg 12/30/15 10:00 10/22/16 10:34 Prinivil GT 40 mg DAILY KWAKU Administration Metoprolol Tartrate 150 mg 12/29/15 22:00 12/25/16 10:33 Lopressor - GT 150 mg BID KWAKU Administration Metoprolol Tartrate 5 mg 12/29/15 10:43 Lopressor Injection - IVPB Q6H PRN HYPERTENSION Multivitamins 5 ml 10/16/16 16:30 10/22/16 10:36 Thera-Plus - GT 5 ml DAILY KWAKU Administration Ranitidine HCl 150 mg 08/27/16 12:15 10/22/16 10:34 Zantac Oral Solution - PO 150 mg BID KWAKU Administration Scopolamine HBr 1 patch 05/20/16 15:45 10/20/16 18:18 Transderm-Scop - TD 1 patch Q72H KWAKU Administration Simethicone 40 mg 08/25/16 10:00 10/22/16 10:35 Mylicon Liquid - PEG 40 mg DAILY KWAKU Administration ASSESSMENT/PLAN: Assessment: 75 year old male with PMHx of HTN, IDDM, inguinal hernia who presented to the ED with diverticular bleed s/p Righ hemicolectomy with 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 Plan: 1. Anoxic brain injury s/p brainstem CVAs - Mental status unchanged 2. 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 Respiratory failure secondary to anoxic brain injury - Cont O2 via room air, NC when needed - Trach removed 09/09/16 - Duonebs PRN 4. HTN - Continue lisinopril, amlodipine, lopressor 5. Multiple pressure ulcers - Turn and position q2h - Local wound care 6. IDDM - Continue Levemir at 20u sq qhs - ISS BGM ACHS 7. F/E/N: - 70 ml/hr Glucerna 1.5, 65 ml/hr water flushes - Prostat daily - Continue Zantac bid 8. Prophylaxis: - SCDs bilaterally (lower extremity doppler negative for DVTs 09/20/16) - No chemical anticoagulation 2/2 spontaneous gluteal bleed and severe GI bleed - Functional quadriplegia CODE STATUS: DNR Visit type - Emergency Visit Emergency Visit: Yes ED Registration Date: 06/27/15 Care time: The patient presented to the Emergency Department on the above date and was hospitalized for further evaluation of their emergent condition. - New Patient This patient is new to me today: No - Critical Care Critical Care patient: No
[2016-10-22] MEDS: INSULIN DETEMIR 100 UNITS/ML MDV SQ SCH (21:53)
[2016-10-22] MEDS: ACETAMINOPHEN 650 MG/20.3 ML ORAL SOLUTION (CUPS) GT PRN (21:54)
[2016-10-23] MEDS: INSULIN SLIDING SCALE (NOVOLOG) 1 VIAL SQ SCH ×3 (06:01→16:43)
[2016-10-23] MEDS: BACITRACIN 15 GM TUBE TOPICAL OINTMENT TP SCH (10:16)
[2016-10-23] MEDS: LACTOBACILLUS ACIDOPHILUS 1 EACH TAB (FP) PO SCH (10:16)
[2016-10-23] MEDS: SIMETHICONE 40 MG/0.6 ML BOTTLE PEG SCH (10:17)
[2016-10-23] MEDS: METOPROLOL TARTRATE 50 MG TABLET (FP) GT SCH (10:17)
[2016-10-23] MEDS: amLODIPine BESYLATE 10 MG TABLET (FP) GT SCH (10:22)
[2016-10-23] MEDS: AMINO ACIDS/PROTEIN HYDROLYS SUGAR-FREE 30 ML PACKET PO SCH (10:23)
[2016-10-23] MEDS: LISINOPRIL 20 MG TABLET (FP) GT SCH (10:23)
[2016-10-23] MEDS: RANITIDINE HCL 150 MG/10 ML UNIT-DOSE CUP PO SCH (10:23)
[2016-10-23] MEDS: MULTIVITAMINS LIQUID THERAPEUTIC 118 ML BOT GT SCH (10:24)
[2016-10-23] MEDS: SCOPOLAMINE HYDROBROMIDE 1 PATCH PATCH.TD72 TD SCH (16:43)
--- NOTE | 2016-10-23 17:25 | PN ---
Physical Exam: SUBJECTIVE: Patient seen and examined. Non-verbal. No acute events overnight. OBJECTIVE: Vital Signs Period Temp Pulse Resp BP Sys/Santiago Pulse Ox Last 24 Hr 98 F-98.7 F 75-80 20-20 129/92 97-97 General: No acute distress, tracking with eyes HEENT: Tracheal stoma Pulm: CTA anteriorly CV: RRR, S1S2 Abd: Soft, non-distended. Normoactive bowel sounds. Peg tube C/D/I Ext: Warm, well-perfused. heel protectors on Neuro: awake, alert, nonverbal Laboratory Results - last 24 hr 10/22/16 10/23/16 10/23/16 21:51 05:24 12:40 POC Glucometer 121 131 157 Active Medications Generic Name Dose Route Start Last Admin Trade Name Freq PRN Reason Stop Dose Admin Acetaminophen 650 mg 05/26/16 14:23 10/22/16 21:54 Tylenol Oral Solution - GT 650 mg Q4H PRN Administration FEVER Amino Acids 30 ml 06/28/16 10:00 10/23/16 10:23 Prostat Sugar-Free Packet - PO 30 ml DAILY KWAKU Administration Amlodipine Besylate 10 mg 12/30/15 10:00 10/23/16 10:22 Norvasc - GT 10 mg DAILY KWAKU Administration Bacitracin 1 applic 08/09/16 16:15 10/23/16 10:16 Bacitracin - TP 1 applic DAILY KWAKU Administration Guaifenesin 10 ml 12/29/15 10:43 08/02/16 10:38 Robitussin Dm - PO 10 ml Q6H PRN Administration COUGH Insulin Aspart 1 vial 09/17/16 16:30 10/23/16 16:43 Novolog Vial Sliding Scale - SQ 4 units ACHS KWAKU Administration Protocol Insulin Detemir 20 units 09/21/16 13:25 10/22/16 21:53 Levemir Vial SQ 20 units HS KWAKU Administration Lactobacillus Acidophilus 1 tab 12/30/15 10:00 10/23/16 10:16 Bacid - PO 1 tab DAILY KWAKU Administration Lisinopril 40 mg 12/30/15 10:00 10/23/16 10:23 Prinivil GT 40 mg DAILY KWAKU Administration Metoprolol Tartrate 150 mg 12/29/15 22:00 10/23/16 10:17 Lopressor - GT 150 mg BID KWKAU Administration Metoprolol Tartrate 5 mg 12/29/15 10:43 Lopressor Injection - IVPB Q6H PRN HYPERTENSION Multivitamins 5 ml 10/16/16 16:30 10/23/16 10:24 Thera-Plus - GT 5 ml DAILY KWAKU Administration Ranitidine HCl 150 mg 08/27/16 12:15 10/23/16 10:23 Zantac Oral Solution - PO 150 mg BID KWAKU Administration Scopolamine HBr 1 patch 05/20/16 15:45 10/23/16 16:43 Transderm-Scop - TD 1 patch Q72H KWAKU Administration Simethicone 40 mg 08/25/16 10:00 10/23/16 10:17 Mylicon Liquid - PEG 40 mg DAILY KWAKU Administration ASSESSMENT/PLAN: 75 year old male with PMHx of HTN, IDDM, inguinal hernia who presented to the ED with diverticular bleed s/p Righ hemicolectomy with 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 Plan: 1. Anoxic brain injury s/p brainstem CVAs 2. 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 Respiratory failure secondary to anoxic brain injury 4. HTN 5. Multiple pressure ulcers 6. IDDM -Continue current management, MS unchanged (non-verbal), continue tube feedings (glucerna), continue with levemir/prostate - SCDs bilaterally (lower extremity doppler negative for DVTs 09/20/16) - No chemical anticoagulation 2/2 spontaneous gluteal bleed and severe GI bleed - Functional quadriplegia CODE STATUS: DNR Visit type - Emergency Visit Emergency Visit: Yes ED Registration Date: 06/27/15 Care time: The patient presented to the Emergency Department on the above date and was hospitalized for further evaluation of their emergent condition. - New Patient This patient is new to me today: No - Critical Care Critical Care patient: No
[2016-10-24] MEDS: INSULIN DETEMIR 100 UNITS/ML MDV SQ SCH ×2 (01:39→21:56)
[2016-10-24] MEDS: INSULIN SLIDING SCALE (NOVOLOG) 1 VIAL SQ SCH ×5 (01:39→21:57)
[2016-10-24] MEDS: METOPROLOL TARTRATE 50 MG TABLET (FP) GT SCH ×3 (01:39→21:56)
[2016-10-24] MEDS: RANITIDINE HCL 150 MG/10 ML UNIT-DOSE CUP PO SCH ×3 (01:40→21:57)
[2016-10-24] MEDS: amLODIPine BESYLATE 10 MG TABLET (FP) GT SCH (09:58)
[2016-10-24] MEDS: BACITRACIN 15 GM TUBE TOPICAL OINTMENT TP SCH (09:58)
[2016-10-24] MEDS: LACTOBACILLUS ACIDOPHILUS 1 EACH TAB (FP) PO SCH (09:58)
[2016-10-24] MEDS: AMINO ACIDS/PROTEIN HYDROLYS SUGAR-FREE 30 ML PACKET PO SCH (09:58)
[2016-10-24] MEDS: LISINOPRIL 20 MG TABLET (FP) GT SCH (09:58)
[2016-10-24] MEDS: MULTIVITAMINS LIQUID THERAPEUTIC 118 ML BOT GT SCH (09:59)
[2016-10-24] MEDS: SIMETHICONE 40 MG/0.6 ML BOTTLE PEG SCH (09:59)
--- NOTE | 2016-10-24 14:13 | PN ---
Physical Exam: SUBJECTIVE: Patient seen and examined. No acute events overnight OBJECTIVE: Vital Signs Period Temp Pulse Resp BP Sys/Santiago Pulse Ox Last 24 Hr 97.5 F-98.7 F 65-85 18-20 138-155/66-97 99 General: No acute distress, tracking with eyes HEENT: Tracheal stoma Pulm: CTA anteriorly CV: RRR, S1S2 Abd: Soft, non-distended. Normoactive bowel sounds. Peg tube C/D/I Ext: Warm, well-perfused. heel protectors on Neuro: awake, alert, nonverbal Laboratory Results - last 24 hr 10/23/16 10/24/16 10/24/16 16:41 01:31 06:38 POC Glucometer 153 142 141 Active Medications Generic Name Dose Route Start Last Admin Trade Name Freq PRN Reason Stop Dose Admin Acetaminophen 650 mg 05/26/16 14:23 10/22/16 21:54 Tylenol Oral Solution - GT 650 mg Q4H PRN Administration FEVER Amino Acids 30 ml 06/28/16 10:00 10/24/16 09:58 Prostat Sugar-Free Packet - PO 30 ml DAILY KWAKU Administration Amlodipine Besylate 10 mg 12/30/15 10:00 10/24/16 09:58 Norvasc - GT 10 mg DAILY KWAKU Administration Bacitracin 1 applic 08/09/16 16:15 10/24/16 09:58 Bacitracin - TP 1 applic DAILY KWAKU Administration Guaifenesin 10 ml 12/29/15 10:43 08/02/16 10:38 Robitussin Dm - PO 10 ml Q6H PRN Administration COUGH Insulin Aspart 1 vial 09/17/16 16:30 10/24/16 12:24 Novolog Vial Sliding Scale - SQ Not Given ACHS [facility] Protocol Insulin Detemir 20 units 09/21/16 13:25 10/24/16 01:39 Levemir Vial SQ 20 units HS KWAKU Administration Lactobacillus Acidophilus 1 tab 12/30/15 10:00 10/24/16 09:58 Bacid - PO 1 tab DAILY KWAKU Administration Lisinopril 40 mg 12/30/15 10:00 10/24/16 09:58 Prinivil GT 40 mg DAILY KWAKU Administration Metoprolol Tartrate 150 mg 12/29/15 22:00 10/24/16 09:58 Lopressor - GT 150 mg BID KWAKU Administration Metoprolol Tartrate 5 mg 12/29/15 10:43 Lopressor Injection - IVPB Q6H PRN HYPERTENSION Multivitamins 5 ml 10/16/16 16:30 10/24/16 09:59 Thera-Plus - GT 5 ml DAILY KWAKU Administration Ranitidine HCl 150 mg 08/27/16 12:15 10/24/16 09:59 Zantac Oral Solution - PO 150 mg BID KWAKU Administration Scopolamine HBr 1 patch 05/20/16 15:45 10/23/16 16:43 Transderm-Scop - TD 1 patch Q72H KWAKU Administration Simethicone 40 mg 08/25/16 10:00 10/24/16 09:59 Mylicon Liquid - PEG 40 mg DAILY KWAKU Administration ASSESSMENT/PLAN: 75 year old male with PMHx of HTN, IDDM, inguinal hernia who presented to the ED with diverticular bleed s/p Righ hemicolectomy with 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 Plan: 1. Anoxic brain injury s/p brainstem CVAs 2. Breathing pauses due to central apnea 2/2 anoxic brain injury 3. Respiratory failure secondary to anoxic brain injury 4. HTN 5. Multiple pressure ulcers 6. IDDM -Continue current management, MS unchanged (non-verbal), continue tube feedings (glucerna), continue with levemir/prostat - SCDs bilaterally (lower extremity doppler negative for DVTs 09/20/16) - No chemical anticoagulation 2/2 spontaneous gluteal bleed and severe GI bleed - Functional quadriplegia CODE STATUS: DNR Visit type - Emergency Visit Emergency Visit: Yes ED Registration Date: 06/27/15 Care time: The patient presented to the Emergency Department on the above date and was hospitalized for further evaluation of their emergent condition. - New Patient This patient is new to me today: Yes Date on this admission: 10/24/16 - Critical Care Critical Care patient: No
[2016-10-25] MEDS: INSULIN SLIDING SCALE (NOVOLOG) 1 VIAL SQ SCH ×4 (06:14→22:13)
[2016-10-25 07:16] LABS: MCH 29.8 pg (25.7-33.7); MCHC 33.2 g/dl (32.0-35.9); MEAN CELL VOLUME 89.7 fl (80-96); RDW 16.6 % (11.9-15.9); WHITE BLOOD COUNT 9.7 K/mm3 (4.0-10.0)
[2016-10-25 07:42] LABS: CALCIUM 9.8 mg/dL (8.5-10.1); CREATININE 0.8 mg/dL (0.7-1.3); MAGNESIUM 2.4 mg/dL (1.8-2.4)
[2016-10-25 08:16] LABS: PLATELET COMMENT2 FEW LARGE PLTS; PLATELET COUNT 195 K/MM3 (134-434)
[2016-10-25] MEDS: LACTOBACILLUS ACIDOPHILUS 1 EACH TAB (FP) PO SCH (11:11)
[2016-10-25] MEDS: BACITRACIN 15 GM TUBE TOPICAL OINTMENT TP SCH (11:11)
[2016-10-25] MEDS: METOPROLOL TARTRATE 50 MG TABLET (FP) GT SCH ×2 (11:12→22:13)
[2016-10-25] MEDS: amLODIPine BESYLATE 10 MG TABLET (FP) GT SCH (11:13)
[2016-10-25] MEDS: SIMETHICONE 40 MG/0.6 ML BOTTLE PEG SCH (11:13)
[2016-10-25] MEDS: AMINO ACIDS/PROTEIN HYDROLYS SUGAR-FREE 30 ML PACKET PO SCH (11:15)
[2016-10-25] MEDS: MULTIVITAMINS LIQUID THERAPEUTIC 118 ML BOT GT SCH (11:15)
[2016-10-25] MEDS: LISINOPRIL 20 MG TABLET (FP) GT SCH (11:15)
[2016-10-25] MEDS: RANITIDINE HCL 150 MG/10 ML UNIT-DOSE CUP PO SCH ×2 (11:16→22:13)
--- NOTE | 2016-10-25 18:35 | PN ---
Physical Exam: SUBJECTIVE: Patient seen and examined OBJECTIVE: Vital Signs Period Temp Pulse Resp BP Sys/Santiago Pulse Ox Last 24 Hr 97.8 F-98.8 F 77-87 20-20 146-151/85-98 96-98 General: No acute distress, tracking with eyes HEENT: Tracheal stoma Pulm: CTA anteriorly CV: RRR, S1S2 Abd: Soft, non-distended. Normoactive bowel sounds. Peg tube C/D/I Ext: Warm, well-perfused. heel protectors on Neuro: awake, alert, nonverbal Laboratory Results - last 24 hr 10/24/16 10/25/16 10/25/16 21:48 05:35 06:00 WBC 9.7 D RBC 4.20 Hgb 12.5 Hct 37.6 MCV 89.7 MCHC 33.2 RDW 16.6 H Plt Count 195 MPV 10.0 Platelet Comment Few large plts Sodium Potassium Chloride Carbon Dioxide Anion Gap BUN Creatinine POC Glucometer 118 135 Random Glucose Calcium Magnesium 10/25/16 10/25/16 10/25/16 06:00 11:25 16:22 WBC RBC Hgb Hct MCV MCHC RDW Plt Count MPV Platelet Comment Sodium 146 H Potassium 3.7 Chloride 109 H Carbon Dioxide 27 Anion Gap 10 BUN 23 H Creatinine 0.8 POC Glucometer 162 128 Random Glucose 111 H Calcium 9.8 Magnesium 2.4 Active Medications Generic Name Dose Route Start Last Admin Trade Name Freq PRN Reason Stop Dose Admin Acetaminophen 650 mg 05/26/16 14:23 10/22/16 21:54 Tylenol Oral Solution - GT 650 mg Q4H PRN Administration FEVER Amino Acids 30 ml 06/28/16 10:00 10/25/16 11:15 Prostat Sugar-Free Packet - PO 30 ml DAILY KWAKU Administration Amlodipine Besylate 10 mg 12/30/15 10:00 10/25/16 11:13 Norvasc - GT 10 mg DAILY KWAKU Administration Bacitracin 1 applic 08/09/16 16:15 10/25/16 11:11 Bacitracin - TP 1 applic DAILY KWAKU Administration Guaifenesin 10 ml 12/29/15 10:43 08/02/16 10:38 Robitussin Dm - PO 10 ml Q6H PRN Administration COUGH Insulin Aspart 1 vial 09/17/16 16:30 12/28/16 16:22 Novolog Vial Sliding Scale - SQ Not Given ACHS [facility] Protocol Insulin Detemir 20 units 09/21/16 13:25 10/24/16 21:56 Levemir Vial SQ 20 units HS KWAKU Administration Lactobacillus Acidophilus 1 tab 12/30/15 10:00 10/25/16 11:11 Bacid - PO 1 tab DAILY KWAKU Administration Lisinopril 40 mg 12/30/15 10:00 10/25/16 11:15 Prinivil GT 40 mg DAILY KWAKU Administration Metoprolol Tartrate 150 mg 12/29/15 22:00 10/25/16 11:12 Lopressor - GT 150 mg BID KWAKU Administration Metoprolol Tartrate 5 mg 12/29/15 10:43 Lopressor Injection - IVPB Q6H PRN HYPERTENSION Multivitamins 5 ml 10/16/16 16:30 10/25/16 11:15 Thera-Plus - GT 5 ml DAILY KWAKU Administration Ranitidine HCl 150 mg 08/27/16 12:15 10/25/16 11:16 Zantac Oral Solution - PO 150 mg BID KWAKU Administration Scopolamine HBr 1 patch 05/20/16 15:45 10/23/16 16:43 Transderm-Scop - TD 1 patch Q72H KWAKU Administration Simethicone 40 mg 08/25/16 10:00 10/25/16 11:13 Mylicon Liquid - PEG 40 mg DAILY KWAKU Administration ASSESSMENT/PLAN: 75 year old male with PMHx of HTN, IDDM, inguinal hernia who presented to the ED with diverticular bleed s/p Righ hemicolectomy with 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 Plan: 1. Anoxic brain injury s/p brainstem CVAs 2. Breathing pauses due to central apnea 2/2 anoxic brain injury 3. Respiratory failure secondary to anoxic brain injury 4. HTN 5. Multiple pressure ulcers 6. IDDM 7. Mild Hypernatremia -Continue current management, MS unchanged (non-verbal), continue tube feedings (glucerna), continue with levemir/prostat - SCDs bilaterally (lower extremity doppler negative for DVTs 09/20/16) - No chemical anticoagulation 2/2 spontaneous gluteal bleed and severe GI bleed - Functional quadriplegia added D5W for mild hyponatremia 146. Recheck BMP tomorrow CODE STATUS: DNR Visit type - Emergency Visit Emergency Visit: Yes ED Registration Date: 06/27/15 Care time: The patient presented to the Emergency Department on the above date and was hospitalized for further evaluation of their emergent condition. - New Patient This patient is new to me today: No - Critical Care Critical Care patient: No
[2016-10-25] MEDS: INSULIN DETEMIR 100 UNITS/ML MDV SQ SCH (22:13)
[2016-10-26] MEDS: INSULIN SLIDING SCALE (NOVOLOG) 1 VIAL SQ SCH ×4 (06:08→21:53)
[2016-10-26] MEDS: BACITRACIN 15 GM TUBE TOPICAL OINTMENT TP SCH (12:25)
[2016-10-26] MEDS: METOPROLOL TARTRATE 50 MG TABLET (FP) GT SCH ×2 (12:25→21:53)
[2016-10-26] MEDS: LACTOBACILLUS ACIDOPHILUS 1 EACH TAB (FP) PO SCH (12:25)
[2016-10-26] MEDS: LISINOPRIL 20 MG TABLET (FP) GT SCH (12:27)
[2016-10-26] MEDS: amLODIPine BESYLATE 10 MG TABLET (FP) GT SCH (12:27)
[2016-10-26] MEDS: SIMETHICONE 40 MG/0.6 ML BOTTLE PEG SCH (12:27)
[2016-10-26] MEDS: RANITIDINE HCL 150 MG/10 ML UNIT-DOSE CUP PO SCH ×2 (12:28→21:54)
[2016-10-26] MEDS: MULTIVITAMINS LIQUID THERAPEUTIC 118 ML BOT GT SCH (12:28)
[2016-10-26] MEDS: AMINO ACIDS/PROTEIN HYDROLYS SUGAR-FREE 30 ML PACKET PO SCH (12:28)
--- NOTE | 2016-10-26 15:55 | PN ---
Physical Exam: SUBJECTIVE: Patient seen and examined. He was awake, made brief eye contact. Appears comfortable at rest. No acute events overnight. OBJECTIVE: Vital Signs Period Temp Pulse Resp BP Sys/Santiago Pulse Ox Last 24 Hr 97.6 F-98.8 F 67-94 20-20 127-141/77-87 97 GENERAL: appears comfortable at rest, Tolerating feeds HEAD: Normal with no signs of trauma NECK: Trach removed, site is c/d/i, no redness or drainage noted. LUNGS: Scattered rhonchi auscultated anteriorly HEART: Regular rate and rhythm, heart rate 80s ABDOMEN: peg tube LUQ - on Jevity feeds with water flushes NEUROLOGICAL: at baseline, opens eyes intermittently. Laboratory Results - last 24 hr 10/25/16 10/25/16 10/26/16 16:22 20:48 05:24 Sodium POC Glucometer 128 123 184 10/26/16 10/26/16 06:00 12:41 Sodium 142 POC Glucometer 153 Active Medications Generic Name Dose Route Start Last Admin Trade Name Freq PRN Reason Stop Dose Admin Acetaminophen 650 mg 05/26/16 14:23 10/22/16 21:54 Tylenol Oral Solution - GT 650 mg Q4H PRN Administration FEVER Amino Acids 30 ml 06/28/16 10:00 10/26/16 12:28 Prostat Sugar-Free Packet - PO 30 ml DAILY KWAKU Administration Amlodipine Besylate 10 mg 12/30/15 10:00 10/26/16 12:27 Norvasc - GT 10 mg DAILY KWAKU Administration Bacitracin 1 applic 08/09/16 16:15 10/26/16 12:25 Bacitracin - TP 1 applic DAILY KWAKU Administration Guaifenesin 10 ml 12/29/15 10:43 08/02/16 10:38 Robitussin Dm - PO 10 ml Q6H PRN Administration COUGH Insulin Aspart 1 vial 09/17/16 16:30 10/26/16 12:43 Novolog Vial Sliding Scale - SQ 4 units ACHS KWAKU Administration Protocol Insulin Detemir 20 units 09/21/16 13:25 10/25/16 22:13 Levemir Vial SQ 20 units HS KWAKU Administration Lactobacillus Acidophilus 1 tab 12/30/15 10:00 10/26/16 12:25 Bacid - PO 1 tab DAILY KWAKU Administration Lisinopril 40 mg 12/30/15 10:00 10/26/16 12:27 Prinivil GT 40 mg DAILY KWAKU Administration Metoprolol Tartrate 150 mg 12/29/15 22:00 10/26/16 12:25 Lopressor - GT 150 mg BID KWAKU Administration Metoprolol Tartrate 5 mg 12/29/15 10:43 Lopressor Injection - IVPB Q6H PRN HYPERTENSION Multivitamins 5 ml 10/16/16 16:30 10/26/16 12:28 Thera-Plus - GT 5 ml DAILY KWAKU Administration Ranitidine HCl 150 mg 08/27/16 12:15 10/26/16 12:28 Zantac Oral Solution - PO 150 mg BID KWAKU Administration Scopolamine HBr 1 patch 05/20/16 15:45 10/23/16 16:43 Transderm-Scop - TD 1 patch Q72H KWAKU Administration Simethicone 40 mg 08/25/16 10:00 10/26/16 12:27 Mylicon Liquid - PEG 40 mg DAILY KWAKU Administration ASSESSMENT/PLAN: Patient is a 76 year old male with a past medical history of IDDM, HTN and inguinal hernia. He presented to the emergency room on 06/27/2015 with a diverticular bleed s/p right hemicolectomy. His hospitalization was further complicated with a CVA with anoxic brain injury. He is s/p trach secondary to respiratory failure. ID: Fevers - resolved Assessment/Plan: WBC within normal limits. Weekly labs, monitor for any acute changes, monitor vitals GI: Aspiration Precautions - chronic Assessment/Plan: Tolerating tube feeds. 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 Continue to monitor for any acute changes Pulmonary: Respiratory Failure - chronic Assessment/Plan: Tolerating room air. Has respiratory failure secondary to anoxic brain injury. He is on duonebs PRN, Trach collar removed on 09/09/2016 - site with sterile dressing. Monitor for any signs of drainage or redness Endocrine: Diabetes - chronic Assessment/Plan: Tight glucose coverage, Capillary glucose ac/hs F.E.N. NPO Glucerna 70cc/hr with water flushes and 250cc free water BID Prostat for treatment of pressure ulcers Functional Quadraplegia Hypernatremia resoved, IVF stopped Prophylaxis: DVT: SCDs - both legs. No AC: contraindicated secondary to history of GI bleed GI Regimen: Ranitidine BID Bowel regimen: deferred, having soft stools He is bed bound and a total care Code Status: Patient continues to require inpatient hospitalization. DNR Visit type - Emergency Visit Emergency Visit: Yes ED Registration Date: 06/27/15 Care time: The patient presented to the Emergency Department on the above date and was hospitalized for further evaluation of their emergent condition. - New Patient This patient is new to me today: No - Critical Care Critical Care patient: No - Discharge Referral Referred to [facility] No
[2016-10-26] MEDS: SCOPOLAMINE HYDROBROMIDE 1 PATCH PATCH.TD72 TD SCH (18:12)
[2016-10-26] MEDS: INSULIN DETEMIR 100 UNITS/ML MDV SQ SCH (21:53)
[2016-10-27] MEDS: INSULIN SLIDING SCALE (NOVOLOG) 1 VIAL SQ SCH ×4 (06:04→22:03)
[2016-10-27] MEDS: BACITRACIN 15 GM TUBE TOPICAL OINTMENT TP SCH (10:33)
[2016-10-27] MEDS: LISINOPRIL 20 MG TABLET (FP) GT SCH (10:33)
[2016-10-27] MEDS: LACTOBACILLUS ACIDOPHILUS 1 EACH TAB (FP) PO SCH (10:33)
[2016-10-27] MEDS: amLODIPine BESYLATE 10 MG TABLET (FP) GT SCH (10:34)
[2016-10-27] MEDS: METOPROLOL TARTRATE 50 MG TABLET (FP) GT SCH ×2 (10:34→21:51)
[2016-10-27] MEDS: SIMETHICONE 40 MG/0.6 ML BOTTLE PEG SCH (10:34)
[2016-10-27] MEDS: RANITIDINE HCL 150 MG/10 ML UNIT-DOSE CUP PO SCH ×2 (10:35→21:51)
[2016-10-27] MEDS: MULTIVITAMINS LIQUID THERAPEUTIC 118 ML BOT GT SCH (10:36)
[2016-10-27] MEDS: AMINO ACIDS/PROTEIN HYDROLYS SUGAR-FREE 30 ML PACKET PO SCH (11:35)
[2016-10-27] MEDS: guaiFENesin/D-METHORPHAN HB 10 ML UNIT-DOSE CUPS PO PRN (11:35)
--- NOTE | 2016-10-27 16:38 | PN ---
Physical Exam: SUBJECTIVE: Patient seen and examined. He was asleep, appeared comfortable at rest. OBJECTIVE: GENERAL: appears comfortable at rest, Tolerating feeds HEAD: Normal with no signs of trauma NECK: Trach removed, site is c/d/i, no redness or drainage noted. LUNGS: Scattered rhonchi auscultated anteriorly HEART: Regular rate and rhythm, heart rate 80 - 90s ABDOMEN: peg tube LUQ - on Jevity feeds with water flushes NEUROLOGICAL: at baseline, opens eyes intermittently. Vital Signs Period Temp Pulse Resp BP Sys/Santiago Pulse Ox Last 24 Hr 97.6 F-98.5 F 66-94 17-20 138-154/81-88 96 Laboratory Results - last 24 hr 10/26/16 10/26/16 10/27/16 17:45 21:51 05:58 POC Glucometer 113 157 134 10/27/16 11:32 POC Glucometer 131 Active Medications Generic Name Dose Route Start Last Admin Trade Name Freq PRN Reason Stop Dose Admin Acetaminophen 650 mg 05/26/16 14:23 10/22/16 21:54 Tylenol Oral Solution - GT 650 mg Q4H PRN Administration FEVER Amino Acids 30 ml 06/28/16 10:00 10/27/16 11:35 Prostat Sugar-Free Packet - PO 30 ml DAILY KWAKU Administration Amlodipine Besylate 10 mg 12/30/15 10:00 10/27/16 10:34 Norvasc - GT 10 mg DAILY KWAKU Administration Bacitracin 1 applic 08/09/16 16:15 10/27/16 10:33 Bacitracin - TP 1 applic DAILY KWAKU Administration Guaifenesin 10 ml 12/29/15 10:43 10/27/16 11:35 Robitussin Dm - PO 10 ml Q6H PRN Administration COUGH Insulin Aspart 1 vial 09/17/16 16:30 10/27/16 11:37 Novolog Vial Sliding Scale - SQ Not Given ACHS [facility] Protocol Insulin Detemir 20 units 09/21/16 13:25 10/26/16 21:53 Levemir Vial SQ 20 units HS KWAKU Administration Lactobacillus Acidophilus 1 tab 12/30/15 10:00 10/27/16 10:33 Bacid - PO 1 tab DAILY KWAKU Administration Lisinopril 40 mg 12/30/15 10:00 10/27/16 10:33 Prinivil GT 40 mg DAILY KWAKU Administration Metoprolol Tartrate 150 mg 12/29/15 22:00 10/27/16 10:34 Lopressor - GT 150 mg BID KWAKU Administration Metoprolol Tartrate 5 mg 12/29/15 10:43 Lopressor Injection - IVPB Q6H PRN HYPERTENSION Multivitamins 5 ml 10/16/16 16:30 10/27/16 10:36 Thera-Plus - GT 5 ml DAILY KWAKU Administration Ranitidine HCl 150 mg 08/27/16 12:15 10/27/16 10:35 Zantac Oral Solution - PO 150 mg BID KWAKU Administration Scopolamine HBr 1 patch 05/20/16 15:45 10/26/16 18:12 Transderm-Scop - TD 1 patch Q72H KWAKU Administration Simethicone 40 mg 08/25/16 10:00 10/27/16 10:34 Mylicon Liquid - PEG 40 mg DAILY KWAKU Administration ASSESSMENT/PLAN: Patient is a 76 year old male with a past medical history of IDDM, HTN and inguinal hernia. He presented to the emergency room on 06/27/2015 with a diverticular bleed s/p right hemicolectomy. His hospitalization was further complicated with a CVA with anoxic brain injury. He is s/p trach secondary to respiratory failure. ID: Fevers - resolved Assessment/Plan: WBC within normal limits. Weekly labs, monitor for any acute changes, monitor vitals GI: Aspiration Precautions - chronic Assessment/Plan: Tolerating tube feeds. 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 Continue to monitor for any acute changes Pulmonary: Respiratory Failure - chronic Assessment/Plan: Tolerating room air. Has respiratory failure secondary to anoxic brain injury. He is on duonebs PRN, Trach collar removed on 09/09/2016 - site with sterile dressing. Monitor for any signs of drainage or redness Endocrine: Diabetes - chronic Assessment/Plan: Tight glucose coverage, Capillary glucose ac/hs F.E.N. NPO Glucerna 70cc/hr with water flushes and 250cc free water BID Prostat for treatment of pressure ulcers Functional Quadraplegia Hypernatremia resoved, IVF stopped Prophylaxis: DVT: SCDs - both legs. No AC: contraindicated secondary to history of GI bleed GI Regimen: Ranitidine BID Bowel regimen: deferred, having soft stools He is bed bound and a total care Code Status: Patient continues to require inpatient hospitalization. DNR Visit type - Emergency Visit Emergency Visit: Yes ED Registration Date: 06/27/15 Care time: The patient presented to the Emergency Department on the above date and was hospitalized for further evaluation of their emergent condition. - New Patient This patient is new to me today: No - Critical Care Critical Care patient: No - Discharge Referral Referred to [facility] Med [facility] No
[2016-10-27] MEDS: INSULIN DETEMIR 100 UNITS/ML MDV SQ SCH (22:04)
[2016-10-28] MEDS: INSULIN SLIDING SCALE (NOVOLOG) 1 VIAL SQ SCH ×4 (06:04→21:24)
[2016-10-28] MEDS: AMINO ACIDS/PROTEIN HYDROLYS SUGAR-FREE 30 ML PACKET PO SCH (10:43)
[2016-10-28] MEDS: METOPROLOL TARTRATE 50 MG TABLET (FP) GT SCH ×2 (10:44→21:20)
[2016-10-28] MEDS: LACTOBACILLUS ACIDOPHILUS 1 EACH TAB (FP) PO SCH (10:44)
[2016-10-28] MEDS: RANITIDINE HCL 150 MG/10 ML UNIT-DOSE CUP PO SCH ×2 (10:44→21:21)
[2016-10-28] MEDS: LISINOPRIL 20 MG TABLET (FP) GT SCH (10:46)
[2016-10-28] MEDS: SIMETHICONE 40 MG/0.6 ML BOTTLE PEG SCH (10:46)
[2016-10-28] MEDS: MULTIVITAMINS LIQUID THERAPEUTIC 118 ML BOT GT SCH (10:46)
[2016-10-28] MEDS: amLODIPine BESYLATE 10 MG TABLET (FP) GT SCH (10:47)
[2016-10-28] MEDS: BACITRACIN 15 GM TUBE TOPICAL OINTMENT TP SCH (10:48)
--- NOTE | 2016-10-28 13:52 | PN ---
Physical Exam: SUBJECTIVE: Patient seen and examined. He appears comfortable at rest, no overnight events. Remains afebrile, appears at his baseline. OBJECTIVE: GENERAL: appears comfortable at rest, Tolerating feeds HEAD: Normal with no signs of trauma NECK: Trach removed, site is c/d/i, no redness or drainage noted. LUNGS: Scattered rhonchi auscultated anteriorly HEART: Regular rate and rhythm, heart rate 80 - 90s ABDOMEN: peg tube LUQ - on Jevity feeds with water flushes NEUROLOGICAL: at baseline, opens eyes intermittently. Vital Signs Period Temp Pulse Resp BP Sys/Santiago Pulse Ox Last 24 Hr 97.6 F-99 F 66-89 18-20 135-155/83-92 95-95 Laboratory Results - last 24 hr 10/27/16 10/27/16 10/28/16 16:39 22:01 05:55 POC Glucometer 164 122 139 Active Medications Generic Name Dose Route Start Last Admin Trade Name Freq PRN Reason Stop Dose Admin Acetaminophen 650 mg 05/26/16 14:23 10/22/16 21:54 Tylenol Oral Solution - GT 650 mg Q4H PRN Administration FEVER Amino Acids 30 ml 06/28/16 10:00 10/28/16 10:43 Prostat Sugar-Free Packet - PO 30 ml DAILY KWAKU Administration Amlodipine Besylate 10 mg 12/30/15 10:00 10/28/16 10:47 Norvasc - GT 10 mg DAILY KWAKU Administration Bacitracin 1 applic 08/09/16 16:15 10/28/16 10:48 Bacitracin - TP 1 applic DAILY KWAKU Administration Guaifenesin 10 ml 12/29/15 10:43 10/27/16 11:35 Robitussin Dm - PO 10 ml Q6H PRN Administration COUGH Insulin Aspart 1 vial 09/17/16 16:30 10/28/16 13:17 Novolog Vial Sliding Scale - SQ Not Given ACHS [facility] Protocol Insulin Detemir 20 units 09/21/16 13:25 10/27/16 22:04 Levemir Vial SQ 20 units HS KWAKU Administration Lactobacillus Acidophilus 1 tab 12/30/15 10:00 10/28/16 10:44 Bacid - PO 1 tab DAILY KWAKU Administration Lisinopril 40 mg 12/30/15 10:00 10/28/16 10:46 Prinivil GT 40 mg DAILY KWAKU Administration Metoprolol Tartrate 150 mg 12/29/15 22:00 10/28/16 10:44 Lopressor - GT 150 mg BID KWAKU Administration Metoprolol Tartrate 5 mg 12/29/15 10:43 Lopressor Injection - IVPB Q6H PRN HYPERTENSION Multivitamins 5 ml 10/16/16 16:30 10/28/16 10:46 Thera-Plus - GT 5 ml DAILY KWAKU Administration Ranitidine HCl 150 mg 08/27/16 12:15 10/28/16 10:44 Zantac Oral Solution - PO 150 mg BID KWAKU Administration Scopolamine HBr 1 patch 05/20/16 15:45 10/26/16 18:12 Transderm-Scop - TD 1 patch Q72H KWAKU Administration Simethicone 40 mg 08/25/16 10:00 10/28/16 10:46 Mylicon Liquid - PEG 40 mg DAILY KWAKU Administration ASSESSMENT/PLAN: Patient is a 76 year old male with a past medical history of IDDM, HTN and inguinal hernia. He presented to the emergency room on 06/27/2015 with a diverticular bleed s/p right hemicolectomy. His hospitalization was further complicated with a CVA with anoxic brain injury. He is s/p trach secondary to respiratory failure. ID: Fevers - resolved Assessment/Plan: Monitor weekly labs, afebrile GI: Aspiration Precautions - chronic Assessment/Plan: Tolerating tube feeds. 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 Pulmonary: Respiratory Failure - chronic Assessment/Plan: Tolerating room air. Has respiratory failure secondary to anoxic brain injury. He is on duonebs PRN, Trach collar removed on 09/09/2016 - site with sterile dressing. Endocrine: Diabetes - chronic Assessment/Plan: Tight glucose coverage, Capillary glucose ac/hs F.E.N. NPO Glucerna 70cc/hr with water flushes and 250cc free water BID Prostat for treatment of pressure ulcers Functional Quadraplegia/Hypernatremia resoved, IVF stopped Prophylaxis: DVT: SCDs - both legs. No AC: contraindicated secondary to history of GI bleed GI Regimen: Ranitidine BID Bowel regimen: deferred He is bed bound and a total care Code Status: Patient continues to require inpatient hospitalization. DNR Visit type - Emergency Visit Emergency Visit: Yes ED Registration Date: 06/27/15 Care time: The patient presented to the Emergency Department on the above date and was hospitalized for further evaluation of their emergent condition. - New Patient This patient is new to me today: No - Critical Care Critical Care patient: No - Discharge Referral Referred to [facility] Med P.C.: No
[2016-10-28] MEDS: INSULIN DETEMIR 100 UNITS/ML MDV SQ SCH (21:25)
[2016-10-29] MEDS: INSULIN SLIDING SCALE (NOVOLOG) 1 VIAL SQ SCH ×4 (06:14→21:39)
[2016-10-29] MEDS: LACTOBACILLUS ACIDOPHILUS 1 EACH TAB (FP) PO SCH (09:08)
[2016-10-29] MEDS: RANITIDINE HCL 150 MG/10 ML UNIT-DOSE CUP PO SCH ×2 (09:08→21:39)
[2016-10-29] MEDS: AMINO ACIDS/PROTEIN HYDROLYS SUGAR-FREE 30 ML PACKET PO SCH (09:08)
[2016-10-29] MEDS: METOPROLOL TARTRATE 50 MG TABLET (FP) GT SCH ×2 (09:08→21:39)
[2016-10-29] MEDS: amLODIPine BESYLATE 10 MG TABLET (FP) GT SCH (09:09)
[2016-10-29] MEDS: LISINOPRIL 20 MG TABLET (FP) GT SCH (09:09)
[2016-10-29] MEDS: BACITRACIN 15 GM TUBE TOPICAL OINTMENT TP SCH (09:09)
[2016-10-29] MEDS: SIMETHICONE 40 MG/0.6 ML BOTTLE PEG SCH (11:44)
[2016-10-29] MEDS: MULTIVITAMINS LIQUID THERAPEUTIC 118 ML BOT GT SCH (11:45)
--- NOTE | 2016-10-29 15:10 | PN ---
Physical Exam: SUBJECTIVE: Patient seen and examined. Appears comfortable at rest, at his baseline neurologically. Non verbal. OBJECTIVE: GENERAL: appears comfortable at rest, Tolerating feeds HEAD: Normal with no signs of trauma NECK: Trach removed, site is c/d/i, no redness or drainage noted. LUNGS: Scattered rhonchi on anterior lung baeza HEART: Regular rate and rhythm, heart rate 80 - 90s ABDOMEN: peg tube LUQ - on Jevity feeds with water flushes NEUROLOGICAL: at baseline, opens eyes intermittently. Vital Signs Period Temp Pulse Resp BP Sys/Santiago Pulse Ox Last 24 Hr 97.7 F-98.6 F 70-78 18-20 134-158/81-90 95 Laboratory Results - last 24 hr 10/28/16 10/28/16 10/28/16 12:28 17:22 21:24 POC Glucometer 144 161 99 10/29/16 12:28 POC Glucometer 157 Active Medications Generic Name Dose Route Start Last Admin Trade Name Freq PRN Reason Stop Dose Admin Acetaminophen 650 mg 05/26/16 14:23 10/22/16 21:54 Tylenol Oral Solution - GT 650 mg Q4H PRN Administration FEVER Amino Acids 30 ml 06/28/16 10:00 10/29/16 09:08 Prostat Sugar-Free Packet - PO 30 ml DAILY KWAKU Administration Amlodipine Besylate 10 mg 12/30/15 10:00 10/29/16 09:09 Norvasc - GT 10 mg DAILY KWAKU Administration Bacitracin 1 applic 08/09/16 16:15 10/29/16 09:09 Bacitracin - TP 1 applic DAILY KWAKU Administration Guaifenesin 10 ml 12/29/15 10:43 10/27/16 11:35 Robitussin Dm - PO 10 ml Q6H PRN Administration COUGH Insulin Aspart 1 vial 09/17/16 16:30 10/29/16 12:30 Novolog Vial Sliding Scale - SQ 4 units ACHS KWAKU Administration Protocol Insulin Detemir 20 units 09/21/16 13:25 10/28/16 21:25 Levemir Vial SQ 20 units HS KWAKU Administration Lactobacillus Acidophilus 1 tab 12/30/15 10:00 10/29/16 09:08 Bacid - PO 1 tab DAILY KWAKU Administration Lisinopril 40 mg 12/30/15 10:00 10/29/16 09:09 Prinivil GT 40 mg DAILY KWAKU Administration Metoprolol Tartrate 150 mg 12/29/15 22:00 10/29/16 09:08 Lopressor - GT 150 mg BID KWAKU Administration Metoprolol Tartrate 5 mg 12/29/15 10:43 Lopressor Injection - IVPB Q6H PRN HYPERTENSION Multivitamins 5 ml 10/16/16 16:30 10/29/16 11:45 Thera-Plus - GT 5 ml DAILY KWAKU Administration Ranitidine HCl 150 mg 08/27/16 12:15 10/29/16 09:08 Zantac Oral Solution - PO 150 mg BID KWAKU Administration Scopolamine HBr 1 patch 05/20/16 15:45 10/26/16 18:12 Transderm-Scop - TD 1 patch Q72H KWAKU Administration Simethicone 40 mg 08/25/16 10:00 10/29/16 11:44 Mylicon Liquid - PEG 40 mg DAILY KWAKU Administration ASSESSMENT/PLAN: Patient is a 76 year old male with a past medical history of IDDM, HTN and inguinal hernia. He presented to the emergency room on 06/27/2015 with a diverticular bleed s/p right hemicolectomy. His hospitalization was further complicated with a CVA with anoxic brain injury. He is s/p trach secondary to respiratory failure. ID: Fevers - resolved Assessment/Plan: Monitor weekly labs, afebrile GI: Aspiration Precautions - chronic Assessment/Plan: Tolerating tube feeds. 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 Pulmonary: Respiratory Failure - chronic Assessment/Plan: Tolerating room air. Has respiratory failure secondary to anoxic brain injury. He is on duonebs PRN, Trach collar removed on 09/09/2016 - site with sterile dressing. Endocrine: Diabetes - chronic Assessment/Plan: Tight glucose coverage, Capillary glucose ac/hs F.E.N. NPO Glucerna 70cc/hr with water flushes and 250cc free water BID Prostat for treatment of pressure ulcers Functional Quadraplegia Hypernatremia resoved, IVF stopped CBC/BMP ordered for a.m. Prophylaxis: DVT: SCDs - both legs. No AC: contraindicated secondary to history of GI bleed GI Regimen: Ranitidine BID Bowel regimen: deferred He is bed bound and a total care Code Status: Patient continues to require inpatient hospitalization. DNR Visit type - Emergency Visit Emergency Visit: Yes ED Registration Date: 06/27/15 Care time: The patient presented to the Emergency Department on the above date and was hospitalized for further evaluation of their emergent condition. - New Patient This patient is new to me today: No - Critical Care Critical Care patient: No - Discharge Referral Referred to [facility] Med [facility] No
[2016-10-29] MEDS: SCOPOLAMINE HYDROBROMIDE 1 PATCH PATCH.TD72 TD SCH (17:39)
[2016-10-29] MEDS: INSULIN DETEMIR 100 UNITS/ML MDV SQ SCH (21:38)
[2016-10-30] MEDS: INSULIN SLIDING SCALE (NOVOLOG) 1 VIAL SQ SCH ×4 (06:41→22:33)
[2016-10-30 08:53] LABS: BASOPHIL 1.1 % (0-2.0); EOSINOPHIL 4.9 % (0-4.5); MCH 29.8 pg (25.7-33.7); MCHC 33.3 g/dl (32.0-35.9); MEAN CELL VOLUME 89.2 fl (80-96); MEAN PLT VOLUME 10.4 fl (7.5-11.1); NEUTROPHILS 53.1 % (42.8-82.8); PLATELET COUNT 189 K/MM3 (134-434); WHITE BLOOD COUNT 7.2 K/mm3 (4.0-10.0)
[2016-10-30 08:58] LABS: ALBUMIN 3.8 g/dl (3.4-5.0); ALK PHOS 154 U/L (45-117); ANION GAP 11 (8-16); BILIRUBIN,TOTAL 0.3 mg/dL (0.2-1.0); CALCIUM 9.9 mg/dL (8.5-10.1); CO2 31 mmol/L (21-32); CREATININE 0.7 mg/dL (0.7-1.3); GLUCOSE,RANDOM 121 mg/dL (74-106); SGOT/AST 20 U/L (15-37); SGPT/ALT 40 U/L (12-78); TOT PROT 8.4 g/dl (6.4-8.2)
[2016-10-30] MEDS: RANITIDINE HCL 150 MG/10 ML UNIT-DOSE CUP PO SCH (10:41)
[2016-10-30] MEDS: AMINO ACIDS/PROTEIN HYDROLYS SUGAR-FREE 30 ML PACKET PO SCH (10:41)
[2016-10-30] MEDS: amLODIPine BESYLATE 10 MG TABLET (FP) GT SCH (10:41)
[2016-10-30] MEDS: LISINOPRIL 20 MG TABLET (FP) GT SCH (10:41)
[2016-10-30] MEDS: MULTIVITAMINS LIQUID THERAPEUTIC 118 ML BOT GT SCH (10:41)
[2016-10-30] MEDS: LACTOBACILLUS ACIDOPHILUS 1 EACH TAB (FP) PO SCH (10:41)
[2016-10-30] MEDS: METOPROLOL TARTRATE 50 MG TABLET (FP) GT SCH ×2 (10:41→22:33)
[2016-10-30] MEDS: BACITRACIN 15 GM TUBE TOPICAL OINTMENT TP SCH (10:55)
[2016-10-30] MEDS: SIMETHICONE 40 MG/0.6 ML BOTTLE PEG SCH (10:55)
--- NOTE | 2016-10-30 15:21 | PN ---
Physical Exam: SUBJECTIVE: Patient seen and examined. Comfortable at rest. Non verbal at baseline. OBJECTIVE: GENERAL: appears comfortable at rest, Tolerating feeds HEAD: Normal with no signs of trauma NECK: Trach removed, site is c/d/i, no redness or drainage noted. LUNGS: Scattered rhonchi on anterior lung baeza HEART: Regular rate and rhythm, heart rate 80 - 90s ABDOMEN: peg tube LUQ - on Jevity feeds with water flushes NEUROLOGICAL: at baseline, opens eyes intermittently. Vital Signs Period Temp Pulse Resp BP Sys/Santiago Pulse Ox Last 24 Hr 97.7 F-98.9 F 70-80 18-20 132-147/79-92 97 Laboratory Results - last 24 hr 10/29/16 10/29/16 10/29/16 06:11 17:36 21:37 WBC RBC Hgb Hct MCV MCHC RDW Plt Count MPV Neutrophils % Lymphocytes % Monocytes % Eosinophils % Basophils % Sodium Potassium Chloride Carbon Dioxide Anion Gap BUN Creatinine Creat Clearance w eGFR POC Glucometer 141 155 146 Random Glucose Calcium Total Bilirubin AST ALT Alkaline Phosphatase Total Protein Albumin 10/30/16 10/30/16 10/30/16 05:43 08:00 08:00 WBC 7.2 RBC 4.16 Hgb 12.4 Hct 37.2 MCV 89.2 MCHC 33.3 RDW 16.0 H Plt Count 189 MPV 10.4 Neutrophils % 53.1 Lymphocytes % 34.7 Monocytes % 6.2 Eosinophils % 4.9 H Basophils % 1.1 Sodium 144 Potassium 3.6 Chloride 102 Carbon Dioxide 31 Anion Gap 11 BUN 23 H Creatinine 0.7 Creat Clearance w eGFR > 60 POC Glucometer 149 Random Glucose 121 H Calcium 9.9 Total Bilirubin 0.3 AST 20 ALT 40 Alkaline Phosphatase 154 H Total Protein 8.4 H Albumin 3.8 10/30/16 11:51 WBC RBC Hgb Hct MCV MCHC RDW Plt Count MPV Neutrophils % Lymphocytes % Monocytes % Eosinophils % Basophils % Sodium Potassium Chloride Carbon Dioxide Anion Gap BUN Creatinine Creat Clearance w eGFR POC Glucometer 173 Random Glucose Calcium Total Bilirubin AST ALT Alkaline Phosphatase Total Protein Albumin Active Medications Generic Name Dose Route Start Last Admin Trade Name Freq PRN Reason Stop Dose Admin Acetaminophen 650 mg 05/26/16 14:23 10/22/16 21:54 Tylenol Oral Solution - GT 650 mg Q4H PRN Administration FEVER Amino Acids 30 ml 06/28/16 10:00 10/30/16 10:41 Prostat Sugar-Free Packet - PO 30 ml DAILY KWAKU Administration Amlodipine Besylate 10 mg 12/30/15 10:00 10/30/16 10:41 Norvasc - GT 10 mg DAILY KWAKU Administration Bacitracin 1 applic 08/09/16 16:15 10/30/16 10:55 Bacitracin - TP 1 applic DAILY KWAKU Administration Guaifenesin 10 ml 12/29/15 10:43 10/27/16 11:35 Robitussin Dm - PO 10 ml Q6H PRN Administration COUGH Insulin Aspart 1 vial 09/17/16 16:30 10/30/16 12:15 Novolog Vial Sliding Scale - SQ 2 units ACHS KWAKU Administration Protocol Insulin Detemir 20 units 09/21/16 13:25 10/29/16 21:38 Levemir Vial SQ 20 units HS KWAKU Administration Lactobacillus Acidophilus 1 tab 12/30/15 10:00 10/30/16 10:41 Bacid - PO 1 tab DAILY KWAKU Administration Lisinopril 40 mg 12/30/15 10:00 10/30/16 10:41 Prinivil GT 40 mg DAILY KWAKU Administration Metoprolol Tartrate 150 mg 12/29/15 22:00 10/30/16 10:41 Lopressor - GT 150 mg BID KWAKU Administration Metoprolol Tartrate 5 mg 12/29/15 10:43 Lopressor Injection - IVPB Q6H PRN HYPERTENSION Multivitamins 5 ml 10/16/16 16:30 10/30/16 10:41 Thera-Plus - GT 5 ml DAILY KWAKU Administration Ranitidine HCl 150 mg 08/27/16 12:15 10/30/16 10:41 Zantac Oral Solution - PO 150 mg BID KWAKU Administration Scopolamine HBr 1 patch 05/20/16 15:45 10/29/16 17:39 Transderm-Scop - TD 1 patch Q72H KWAKU Administration Simethicone 40 mg 08/25/16 10:00 10/30/16 10:55 Mylicon Liquid - PEG 40 mg DAILY KWAKU Administration ASSESSMENT/PLAN: Patient is a 76 year old male with a past medical history of IDDM, HTN and inguinal hernia. He presented to the emergency room on 06/27/2015 with a diverticular bleed s/p right hemicolectomy. His hospitalization was further complicated with a CVA with anoxic brain injury. He is s/p trach secondary to respiratory failure. ID: Fevers - resolved Assessment/Plan: CBC/CMP within normal limits, non toxic appearing, vitals stable. GI: Aspiration Precautions - chronic Assessment/Plan: Tolerating tube feeds. 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 Pulmonary: Respiratory Failure - chronic Assessment/Plan: Tolerating room air. Has respiratory failure secondary to anoxic brain injury. He is on duonebs PRN, Trach collar removed on 09/09/2016 - site open to air Endocrine: Diabetes - chronic Assessment/Plan: Tight glucose coverage, Capillary glucose ac/hs F.E.N. NPO Glucerna 70cc/hr with water flushes and 250cc free water BID Prostat for treatment of pressure ulcers Functional Quadraplegia Hypernatremia resoved, IVF stopped CBC/BMP ordered for a.m. Prophylaxis: DVT: SCDs - both legs. No AC: contraindicated secondary to history of GI bleed GI Regimen: Ranitidine BID Bowel regimen: deferred He is bed bound and a total care Code Status: Patient continues to require inpatient hospitalization. DNR Visit type - Emergency Visit Emergency Visit: Yes ED Registration Date: 06/27/15 Care time: The patient presented to the Emergency Department on the above date and was hospitalized for further evaluation of their emergent condition. - New Patient This patient is new to me today: No - Critical Care Critical Care patient: No - Discharge Referral Referred to [facility] Med P.C.: No
[2016-10-30] MEDS: ACETAMINOPHEN 650 MG/20.3 ML ORAL SOLUTION (CUPS) GT PRN (22:31)
[2016-10-30] MEDS: INSULIN DETEMIR 100 UNITS/ML MDV SQ SCH (22:32)
[2016-10-31] MEDS: RANITIDINE HCL 150 MG/10 ML UNIT-DOSE CUP PO SCH ×3 (00:13→21:34)
[2016-10-31] MEDS: INSULIN SLIDING SCALE (NOVOLOG) 1 VIAL SQ SCH ×4 (06:31→21:33)
[2016-10-31] MEDS: AMINO ACIDS/PROTEIN HYDROLYS SUGAR-FREE 30 ML PACKET PO SCH (10:35)
[2016-10-31] MEDS: LACTOBACILLUS ACIDOPHILUS 1 EACH TAB (FP) PO SCH (10:35)
[2016-10-31] MEDS: LISINOPRIL 20 MG TABLET (FP) GT SCH (10:35)
[2016-10-31] MEDS: METOPROLOL TARTRATE 50 MG TABLET (FP) GT SCH ×2 (10:35→21:31)
[2016-10-31] MEDS: SIMETHICONE 40 MG/0.6 ML BOTTLE PEG SCH (10:35)
[2016-10-31] MEDS: BACITRACIN 15 GM TUBE TOPICAL OINTMENT TP SCH (10:36)
[2016-10-31] MEDS: amLODIPine BESYLATE 10 MG TABLET (FP) GT SCH (10:36)
[2016-10-31] MEDS: MULTIVITAMINS LIQUID THERAPEUTIC 118 ML BOT GT SCH (10:36)
--- NOTE | 2016-10-31 14:39 | PN ---
Physical Exam: SUBJECTIVE: Patient seen and examined. Comfortable at rest, in no acute distress. OBJECTIVE: Vital Signs Period Temp Pulse Resp BP Sys/Santiago Pulse Ox Last 24 Hr 97.6 F-98.0 F 74-85 20-20 135-162/80-99 97 GENERAL: appears comfortable at rest, Tolerating feeds HEAD: Normal with no signs of trauma NECK: Trach removed, site is c/d/i, no redness or drainage noted. LUNGS: Scattered rhonchi on anterior lung baeza HEART: Regular rate and rhythm, heart rate 80 - 90s ABDOMEN: peg tube LUQ - on Jevity feeds with water flushes NEUROLOGICAL: at baseline, opens eyes intermittently SKIN: chronically healing wound on the sacrum Laboratory Results - last 24 hr 10/30/16 10/30/16 10/31/16 17:08 22:07 05:16 POC Glucometer 104 162 126 10/31/16 11:53 POC Glucometer 134 Active Medications Generic Name Dose Route Start Last Admin Trade Name Freq PRN Reason Stop Dose Admin Acetaminophen 650 mg 05/26/16 14:23 10/30/16 22:31 Tylenol Oral Solution - GT 650 mg Q4H PRN Administration FEVER Amino Acids 30 ml 06/28/16 10:00 10/31/16 10:35 Prostat Sugar-Free Packet - PO 30 ml DAILY KWAKU Administration Amlodipine Besylate 10 mg 12/30/15 10:00 10/31/16 10:36 Norvasc - GT 10 mg DAILY KWAKU Administration Bacitracin 1 applic 08/09/16 16:15 10/31/16 10:36 Bacitracin - TP 1 applic DAILY KWAKU Administration Guaifenesin 10 ml 12/29/15 10:43 10/27/16 11:35 Robitussin Dm - PO 10 ml Q6H PRN Administration COUGH Insulin Aspart 1 vial 09/17/16 16:30 10/31/16 11:55 Novolog Vial Sliding Scale - SQ Not Given ACHS [facility] Protocol Insulin Detemir 20 units 09/21/16 13:25 10/30/16 22:32 Levemir Vial SQ 20 units HS KWAKU Administration Lactobacillus Acidophilus 1 tab 12/30/15 10:00 10/31/16 10:35 Bacid - PO 1 tab DAILY KWAKU Administration Lisinopril 40 mg 12/30/15 10:00 10/31/16 10:35 Prinivil GT 40 mg DAILY KWAKU Administration Metoprolol Tartrate 150 mg 12/29/15 22:00 10/31/16 10:35 Lopressor - GT 150 mg BID KWAKU Administration Metoprolol Tartrate 5 mg 12/29/15 10:43 Lopressor Injection - IVPB Q6H PRN HYPERTENSION Multivitamins 5 ml 10/16/16 16:30 10/31/16 10:36 Thera-Plus - GT 5 ml DAILY KWAKU Administration Ranitidine HCl 150 mg 08/27/16 12:15 10/31/16 10:30 Zantac Oral Solution - PO 150 mg BID KWAKU Administration Scopolamine HBr 1 patch 05/20/16 15:45 10/29/16 17:39 Transderm-Scop - TD 1 patch Q72H KWAKU Administration Simethicone 40 mg 08/25/16 10:00 10/31/16 10:35 Mylicon Liquid - PEG 40 mg DAILY KWAKU Administration ASSESSMENT/PLAN: Patient is a 76 year old male with a past medical history of IDDM, HTN and inguinal hernia. He presented to the emergency room on 06/27/2015 with a diverticular bleed s/p right hemicolectomy. His hospitalization was further complicated with a CVA with anoxic brain injury. He is s/p trach secondary to respiratory failure. ID: Fevers - resolved Assessment/Plan: CBC/CMP within normal limits, non toxic appearing, vitals stable. Integumentary - chronic Assessment/Plan: Chronic wounds on sacrum. Continue turn and position, zinc and Prostat BID GI: Aspiration Precautions - chronic Assessment/Plan: Tolerating tube feeds. 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 Pulmonary: Respiratory Failure - chronic Assessment/Plan: Tolerating room air. Has respiratory failure secondary to anoxic brain injury. He is on duonebs PRN, Trach collar removed on 09/09/2016 - site open to air Endocrine: Diabetes - chronic Assessment/Plan: Tight glucose coverage, Capillary glucose ac/hs F.E.N. NPO Glucerna 70cc/hr with water flushes and 250cc free water BID Prostat for treatment of pressure ulcers Functional Quadraplegia Hypernatremia resoved, IVF stopped CBC/BMP ordered for a.m. Prophylaxis: DVT: SCDs - both legs. No AC: contraindicated secondary to history of GI bleed GI Regimen: Ranitidine BID Bowel regimen: deferred He is bed bound and a total care Code Status: Patient continues to require inpatient hospitalization. DNR Visit type - Emergency Visit Emergency Visit: Yes ED Registration Date: 06/27/15 Care time: The patient presented to the Emergency Department on the above date and was hospitalized for further evaluation of their emergent condition. - New Patient This patient is new to me today: No - Critical Care Critical Care patient: No - Discharge Referral Referred to [facility] Med P.C.: No
[2016-10-31] MEDS: INSULIN DETEMIR 100 UNITS/ML MDV SQ SCH (21:34)
[2016-10-31] MEDS: ACETAMINOPHEN 650 MG/20.3 ML ORAL SOLUTION (CUPS) GT PRN (21:34)
[2016-11-01] MEDS: INSULIN SLIDING SCALE (NOVOLOG) 1 VIAL SQ SCH ×4 (06:01→22:16)
[2016-11-01] MEDS: METOPROLOL TARTRATE 50 MG TABLET (FP) GT SCH ×2 (11:05→22:15)
[2016-11-01] MEDS: LACTOBACILLUS ACIDOPHILUS 1 EACH TAB (FP) PO SCH (11:05)
[2016-11-01] MEDS: LISINOPRIL 20 MG TABLET (FP) GT SCH (11:06)
[2016-11-01] MEDS: amLODIPine BESYLATE 10 MG TABLET (FP) GT SCH (11:06)
[2016-11-01] MEDS: MULTIVITAMINS LIQUID THERAPEUTIC 118 ML BOT GT SCH (11:06)
[2016-11-01] MEDS: AMINO ACIDS/PROTEIN HYDROLYS SUGAR-FREE 30 ML PACKET PO SCH (11:06)
[2016-11-01] MEDS: RANITIDINE HCL 150 MG/10 ML UNIT-DOSE CUP PO SCH ×2 (11:07→22:16)
[2016-11-01] MEDS: SIMETHICONE 40 MG/0.6 ML BOTTLE PEG SCH (11:11)
[2016-11-01] MEDS: BACITRACIN 15 GM TUBE TOPICAL OINTMENT TP SCH (12:05)
[2016-11-01] MEDS: SCOPOLAMINE HYDROBROMIDE 1 PATCH PATCH.TD72 TD SCH (14:54)
--- NOTE | 2016-11-01 21:38 | PN ---
Physical Exam: SUBJECTIVE: Patient seen and examined. No change OBJECTIVE: Vital Signs Period Temp Pulse Resp BP Sys/Santiago Pulse Ox Last 24 Hr 96.9 F-98.5 F 60-96 18-20 128-154/72-101 96-98 PE Neuro: non verbal HEENT: trach hole w/ dressing Pulm: clear anteriorly CV: s1 s2 rrr no mrg Abd: Peg tube CDI soft abd Ext: warm, +DP pulses Laboratory Results - last 24 hr 10/31/16 11/01/16 21:32 05:56 POC Glucometer 152 127 Active Medications Generic Name Dose Route Start Last Admin Trade Name Freq PRN Reason Stop Dose Admin Acetaminophen 650 mg 05/26/16 14:23 10/31/16 21:34 Tylenol Oral Solution - GT 650 mg Q4H PRN Administration FEVER Amino Acids 30 ml 06/28/16 10:00 11/01/16 11:06 Prostat Sugar-Free Packet - PO 30 ml DAILY KWAKU Administration Amlodipine Besylate 10 mg 12/30/15 10:00 11/01/16 11:06 Norvasc - GT 10 mg DAILY KWAKU Administration Bacitracin 1 applic 08/09/16 16:15 11/01/16 12:05 Bacitracin - TP 1 applic DAILY KWAKU Administration Guaifenesin 10 ml 12/29/15 10:43 10/27/16 11:35 Robitussin Dm - PO 10 ml Q6H PRN Administration COUGH Insulin Aspart 1 vial 09/17/16 16:30 11/01/16 19:45 Novolog Vial Sliding Scale - SQ Not Given ACHS [facility] Protocol Insulin Detemir 20 units 09/21/16 13:25 10/31/16 21:34 Levemir Vial SQ 20 units HS KWAKU Administration Lactobacillus Acidophilus 1 tab 12/30/15 10:00 11/01/16 11:05 Bacid - PO 1 tab DAILY KWAKU Administration Lisinopril 40 mg 12/30/15 10:00 11/01/16 11:06 Prinivil GT 40 mg DAILY KWAKU Administration Metoprolol Tartrate 150 mg 12/29/15 22:00 11/01/16 11:05 Lopressor - GT 150 mg BID KWAKU Administration Metoprolol Tartrate 5 mg 12/29/15 10:43 Lopressor Injection - IVPB Q6H PRN HYPERTENSION Multivitamins 5 ml 10/16/16 16:30 01/04/17 11:06 Thera-Plus - GT 5 ml DAILY KWAKU Administration Ranitidine HCl 150 mg 08/27/16 12:15 11/01/16 11:07 Zantac Oral Solution - PO 150 mg BID KWAKU Administration Scopolamine HBr 1 patch 05/20/16 15:45 11/01/16 14:54 Transderm-Scop - TD 1 patch Q72H KWAKU Administration Simethicone 40 mg 08/25/16 10:00 11/01/16 11:11 Mylicon Liquid - PEG 40 mg DAILY KWAKU Administration Assessment: 76 year old male with PMHx of HTN, IDDM, inguinal hernia who presented to the ED with diverticular bleed s/p Righ hemicolectomy with hospital course complicated 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 Plan: 1. Anoxic brain injury s/p brainstem CVAs - Mental status unchanged 2. Respiratory failure secondary to anoxic brain injury - Cont O2 via room air, NC when needed - Duonebs PRN 3. HTN - Continue lisinopril, amlodipine, lopressor 4. Multiple pressure ulcers - Daily wound care - Turn and position q2h 5. IDDM - Levemir at 20u sq qhs - ISS BGM ACHS 6. Nutrition - 70 ml/hr Glucerna 1.5, 65 ml/hr water flushes - Prostat daily - Zantac BID 7. Prophylaxis: - SCDs bilaterally - No chemical AC 2/2 spontaneous gluteal bleed and severe GI bleed - Functional quadriplegia Visit type - Emergency Visit Emergency Visit: Yes ED Registration Date: 06/27/15 Care time: The patient presented to the Emergency Department on the above date and was hospitalized for further evaluation of their emergent condition. - New Patient This patient is new to me today: No - Critical Care Critical Care patient: No - Discharge Referral Referred to [facility] Med P.C.: No
[2016-11-01] MEDS: ACETAMINOPHEN 650 MG/20.3 ML ORAL SOLUTION (CUPS) GT PRN (22:14)
[2016-11-01] MEDS: INSULIN DETEMIR 100 UNITS/ML MDV SQ SCH (22:14)
[2016-11-02] MEDS: INSULIN SLIDING SCALE (NOVOLOG) 1 VIAL SQ SCH ×4 (06:01→21:52)
[2016-11-02] MEDS: LACTOBACILLUS ACIDOPHILUS 1 EACH TAB (FP) PO SCH (12:46)
[2016-11-02] MEDS: LISINOPRIL 20 MG TABLET (FP) GT SCH (12:46)
[2016-11-02] MEDS: METOPROLOL TARTRATE 50 MG TABLET (FP) GT SCH ×2 (12:46→21:54)
[2016-11-02] MEDS: BACITRACIN 15 GM TUBE TOPICAL OINTMENT TP SCH (12:47)
[2016-11-02] MEDS: AMINO ACIDS/PROTEIN HYDROLYS SUGAR-FREE 30 ML PACKET PO SCH (12:47)
[2016-11-02] MEDS: amLODIPine BESYLATE 10 MG TABLET (FP) GT SCH (12:47)
[2016-11-02] MEDS: RANITIDINE HCL 150 MG/10 ML UNIT-DOSE CUP PO SCH ×2 (12:48→21:54)
[2016-11-02] MEDS: MULTIVITAMINS LIQUID THERAPEUTIC 118 ML BOT GT SCH (12:48)
[2016-11-02] MEDS: SIMETHICONE 40 MG/0.6 ML BOTTLE PEG SCH (12:49)
[2016-11-02] MEDS: ACETAMINOPHEN 650 MG/20.3 ML ORAL SOLUTION (CUPS) GT PRN (13:33)
[2016-11-02] MEDS: INSULIN DETEMIR 100 UNITS/ML MDV SQ SCH (21:53)
[2016-11-03] MEDS: INSULIN SLIDING SCALE (NOVOLOG) 1 VIAL SQ SCH ×4 (06:17→22:57)
[2016-11-03] MEDS: METOPROLOL TARTRATE 50 MG TABLET (FP) GT SCH ×2 (13:25→22:47)
[2016-11-03] MEDS: BACITRACIN 15 GM TUBE TOPICAL OINTMENT TP SCH (13:25)
[2016-11-03] MEDS: SIMETHICONE 40 MG/0.6 ML BOTTLE PEG SCH (13:25)
[2016-11-03] MEDS: LACTOBACILLUS ACIDOPHILUS 1 EACH TAB (FP) PO SCH (13:25)
[2016-11-03] MEDS: amLODIPine BESYLATE 10 MG TABLET (FP) GT SCH (13:26)
[2016-11-03] MEDS: LISINOPRIL 20 MG TABLET (FP) GT SCH (13:26)
[2016-11-03] MEDS: MULTIVITAMINS LIQUID THERAPEUTIC 118 ML BOT GT SCH (13:26)
[2016-11-03] MEDS: RANITIDINE HCL 150 MG/10 ML UNIT-DOSE CUP PO SCH ×2 (13:26→22:48)
[2016-11-03] MEDS: AMINO ACIDS/PROTEIN HYDROLYS SUGAR-FREE 30 ML PACKET PO SCH (13:26)
--- NOTE | 2016-11-03 14:10 | PN ---
Physical Exam: SUBJECTIVE: Patient seen and examined. Appears comfortable, no acute events. OBJECTIVE: Vital Signs Period Temp Pulse Resp BP Sys/Santiago Pulse Ox Last 24 Hr 97.8 F-98.8 F 67-84 20-20 126-148/80-86 97 PE Neuro: non verbal HEENT: trach hole open covered w/ dressing Pulm: clear anteriorly CV: s1 s2 rrr no mrg Abd: Peg tube CDI soft abd Ext: warm, +DP pulses Laboratory Results - last 24 hr 11/02/16 11/02/16 11/03/16 17:27 21:50 05:24 POC Glucometer 159 124 130 Active Medications Generic Name Dose Route Start Last Admin Trade Name Freq PRN Reason Stop Dose Admin Acetaminophen 650 mg 05/26/16 14:23 11/02/16 13:33 Tylenol Oral Solution - GT 650 mg Q4H PRN Administration FEVER Amino Acids 30 ml 06/28/16 10:00 11/03/16 13:26 Prostat Sugar-Free Packet - PO 30 ml DAILY KWAKU Administration Amlodipine Besylate 10 mg 12/30/15 10:00 11/03/16 13:26 Norvasc - GT 10 mg DAILY KWAKU Administration Bacitracin 1 applic 08/09/16 16:15 11/03/16 13:25 Bacitracin - TP 1 applic DAILY KWAKU Administration Guaifenesin 10 ml 12/29/15 10:43 10/27/16 11:35 Robitussin Dm - PO 10 ml Q6H PRN Administration COUGH Insulin Aspart 1 vial 09/17/16 16:30 11/03/16 13:58 Novolog Vial Sliding Scale - SQ Not Given ACHS [facility] Protocol Insulin Detemir 20 units 09/21/16 13:25 11/02/16 21:53 Levemir Vial SQ 20 units HS KWAKU Administration Lactobacillus Acidophilus 1 tab 12/30/15 10:00 11/03/16 13:25 Bacid - PO 1 tab DAILY KWAKU Administration Lisinopril 40 mg 12/30/15 10:00 11/03/16 13:26 Prinivil GT 40 mg DAILY KWAKU Administration Metoprolol Tartrate 150 mg 12/29/15 22:00 11/03/16 13:25 Lopressor - GT 150 mg BID KWAKU Administration Metoprolol Tartrate 5 mg 12/29/15 10:43 Lopressor Injection - IVPB Q6H PRN HYPERTENSION Multivitamins 5 ml 10/16/16 16:30 11/03/16 13:26 Thera-Plus - GT 5 ml DAILY KWAKU Administration Ranitidine HCl 150 mg 08/27/16 12:15 11/03/16 13:26 Zantac Oral Solution - PO 150 mg BID KWAKU Administration Scopolamine HBr 1 patch 05/20/16 15:45 11/01/16 14:54 Transderm-Scop - TD 1 patch Q72H KWAKU Administration Simethicone 40 mg 08/25/16 10:00 11/03/16 13:25 Mylicon Liquid - PEG 40 mg DAILY KWAKU Administration Assessment: 76 year old male with PMHx of HTN, IDDM, inguinal hernia who presented to the ED with diverticular bleed s/p Righ hemicolectomy with hospital course complicated 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 Plan: 1. Anoxic brain injury s/p brainstem CVAs - Mental status unchanged 2. Respiratory failure secondary to anoxic brain injury - Cont O2 via room air, NC when needed - Duonebs PRN 3. HTN - Continue lisinopril, amlodipine, lopressor 4. Multiple pressure ulcers - Daily wound care - Turn and position q2h 5. IDDM - Levemir at 20u sq qhs - ISS BGM ACHS 6. Nutrition - 70 ml/hr Glucerna 1.5, 65 ml/hr water flushes - Prostat daily - Zantac BID 7. Prophylaxis: - SCDs bilaterally - No chemical AC 2/2 spontaneous gluteal bleed and severe GI bleed - Functional quadriplegia Visit type - Emergency Visit Emergency Visit: Yes ED Registration Date: 06/27/15 Care time: The patient presented to the Emergency Department on the above date and was hospitalized for further evaluation of their emergent condition. - New Patient This patient is new to me today: No - Critical Care Critical Care patient: No
[2016-11-03] MEDS: INSULIN DETEMIR 100 UNITS/ML MDV SQ SCH (22:57)
[2016-11-04] MEDS: INSULIN SLIDING SCALE (NOVOLOG) 1 VIAL SQ SCH ×4 (06:16→21:00)
[2016-11-04] MEDS: LISINOPRIL 20 MG TABLET (FP) GT SCH (10:00)
[2016-11-04] MEDS: LACTOBACILLUS ACIDOPHILUS 1 EACH TAB (FP) PO SCH (10:00)
[2016-11-04] MEDS: AMINO ACIDS/PROTEIN HYDROLYS SUGAR-FREE 30 ML PACKET PO SCH (10:00)
[2016-11-04] MEDS: RANITIDINE HCL 150 MG/10 ML UNIT-DOSE CUP PO SCH ×2 (10:00→21:00)
[2016-11-04] MEDS: METOPROLOL TARTRATE 50 MG TABLET (FP) GT SCH ×2 (10:00→21:00)
[2016-11-04] MEDS: BACITRACIN 15 GM TUBE TOPICAL OINTMENT TP SCH (10:00)
[2016-11-04] MEDS: amLODIPine BESYLATE 10 MG TABLET (FP) GT SCH (10:01)
[2016-11-04] MEDS: SIMETHICONE 40 MG/0.6 ML BOTTLE PEG SCH (10:01)
[2016-11-04] MEDS: MULTIVITAMINS LIQUID THERAPEUTIC 118 ML BOT GT SCH (10:01)
--- NOTE | 2016-11-04 10:41 | PN ---
Physical Exam: SUBJECTIVE: Patient seen and examined. No new issues OBJECTIVE: Vital Signs Period Temp Pulse Resp BP Sys/Santiago Pulse Ox Last 24 Hr 98 F-98.7 F 69-81 18-20 132-152/71-97 99 Neuro: awake, non specific eye tracking Pulm: Clear anteriorly, trach hole open CV: s1 s2 rrr Abd: peg tube cdi Ext: foot drop, no edema Laboratory Results - last 24 hr 11/03/16 11/03/16 11/03/16 13:54 18:11 22:56 POC Glucometer 111 137 134 11/04/16 05:48 POC Glucometer 142 Active Medications Generic Name Dose Route Start Last Admin Trade Name Freq PRN Reason Stop Dose Admin Acetaminophen 650 mg 05/26/16 14:23 11/02/16 13:33 Tylenol Oral Solution - GT 650 mg Q4H PRN Administration FEVER Amino Acids 30 ml 06/28/16 10:00 11/04/16 10:00 Prostat Sugar-Free Packet - PO 30 ml DAILY KWAKU Administration Amlodipine Besylate 10 mg 12/30/15 10:00 11/04/16 10:01 Norvasc - GT 10 mg DAILY KWAKU Administration Bacitracin 1 applic 08/09/16 16:15 11/04/16 10:00 Bacitracin - TP 1 applic DAILY KWAKU Administration Guaifenesin 10 ml 12/29/15 10:43 10/27/16 11:35 Robitussin Dm - PO 10 ml Q6H PRN Administration COUGH Insulin Aspart 1 vial 09/17/16 16:30 11/04/16 06:16 Novolog Vial Sliding Scale - SQ Not Given ACHS [facility] Protocol Insulin Detemir 20 units 09/21/16 13:25 11/03/16 22:57 Levemir Vial SQ 20 units HS KWAKU Administration Lactobacillus Acidophilus 1 tab 12/30/15 10:00 11/04/16 10:00 Bacid - PO 1 tab DAILY KWAKU Administration Lisinopril 40 mg 12/30/15 10:00 11/04/16 10:00 Prinivil GT 40 mg DAILY KWAKU Administration Metoprolol Tartrate 150 mg 12/29/15 22:00 11/04/16 10:00 Lopressor - GT 150 mg BID KWAKU Administration Metoprolol Tartrate 5 mg 12/29/15 10:43 Lopressor Injection - IVPB Q6H PRN HYPERTENSION Multivitamins 5 ml 10/16/16 16:30 11/04/16 10:01 Thera-Plus - GT 5 ml DAILY KWAKU Administration Ranitidine HCl 150 mg 08/27/16 12:15 11/04/16 10:00 Zantac Oral Solution - PO 150 mg BID KWAKU Administration Scopolamine HBr 1 patch 05/20/16 15:45 11/01/16 14:54 Transderm-Scop - TD 1 patch Q72H KWAKU Administration Simethicone 40 mg 08/25/16 10:00 11/04/16 10:01 Mylicon Liquid - PEG 40 mg DAILY KWAKU Administration Assessment: 76 year old male with PMHx of HTN, IDDM, inguinal hernia who presented to the ED with diverticular bleed s/p Righ hemicolectomy with hospital course complicated 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 Plan: 1. Anoxic brain injury s/p brainstem CVAs - Mental status unchanged 2. Respiratory failure secondary to anoxic brain injury - Cont O2 via room air, NC when needed - Duonebs PRN 3. HTN - Continue lisinopril, amlodipine, lopressor 4. Multiple pressure ulcers - Daily wound care - Turn and position q2h 5. IDDM - Levemir at 20u sq qhs - ISS BGM ACHS 6. Nutrition - 70 ml/hr Glucerna 1.5, 65 ml/hr water flushes - Prostat daily - Zantac BID 7. Prophylaxis: - SCDs bilaterally - No chemical AC 2/2 spontaneous gluteal bleed and severe GI bleed - Functional quadriplegia Visit type - Emergency Visit Emergency Visit: Yes ED Registration Date: 06/27/15 Care time: The patient presented to the Emergency Department on the above date and was hospitalized for further evaluation of their emergent condition. - New Patient This patient is new to me today: No - Critical Care Critical Care patient: No
[2016-11-04] MEDS: SCOPOLAMINE HYDROBROMIDE 1 PATCH PATCH.TD72 TD SCH (18:00)
[2016-11-04] MEDS: INSULIN DETEMIR 100 UNITS/ML MDV SQ SCH (21:00)
[2016-11-05] MEDS: INSULIN SLIDING SCALE (NOVOLOG) 1 VIAL SQ SCH ×4 (06:59→21:54)
--- NOTE | 2016-11-05 08:06 | PN ---
Physical Exam: SUBJECTIVE: Patient seen and examined. NAD, no new acute events OBJECTIVE: Vital Signs Period Temp Pulse Resp BP Sys/Santiago Pulse Ox Last 24 Hr 97.6 F-98.6 F 65-82 18-20 135-147/85-87 98-98 PE Neuro: awake, non specific eye tracking Pulm: Clear anteriorly, trach hole open CV: s1 s2 rrr Abd: peg tube cdi Ext: foot drop, no edema Laboratory Results - last 24 hr 11/04/16 11/04/16 11/04/16 13:27 18:01 20:49 POC Glucometer 130 134 126 11/05/16 05:58 POC Glucometer 156 Active Medications Generic Name Dose Route Start Last Admin Trade Name Freq PRN Reason Stop Dose Admin Acetaminophen 650 mg 05/26/16 14:23 11/02/16 13:33 Tylenol Oral Solution - GT 650 mg Q4H PRN Administration FEVER Amino Acids 30 ml 06/28/16 10:00 11/04/16 10:00 Prostat Sugar-Free Packet - PO 30 ml DAILY KWAKU Administration Amlodipine Besylate 10 mg 12/30/15 10:00 11/04/16 10:01 Norvasc - GT 10 mg DAILY KWAKU Administration Bacitracin 1 applic 08/09/16 16:15 11/04/16 10:00 Bacitracin - TP 1 applic DAILY KWAKU Administration Guaifenesin 10 ml 12/29/15 10:43 10/27/16 11:35 Robitussin Dm - PO 10 ml Q6H PRN Administration COUGH Insulin Aspart 1 vial 09/17/16 16:30 11/05/16 06:59 Novolog Vial Sliding Scale - SQ 4 units ACHS KWAKU Administration Protocol Insulin Detemir 20 units 09/21/16 13:25 11/04/16 21:00 Levemir Vial SQ 20 units HS KWAKU Administration Lactobacillus Acidophilus 1 tab 12/30/15 10:00 11/04/16 10:00 Bacid - PO 1 tab DAILY KWAKU Administration Lisinopril 40 mg 12/30/15 10:00 11/04/16 10:00 Prinivil GT 40 mg DAILY KWAKU Administration Metoprolol Tartrate 150 mg 12/29/15 22:00 11/04/16 21:00 Lopressor - GT 150 mg BID KWAKU Administration Metoprolol Tartrate 5 mg 12/29/15 10:43 Lopressor Injection - IVPB Q6H PRN HYPERTENSION Multivitamins 5 ml 10/16/16 16:30 11/04/16 10:01 Thera-Plus - GT 5 ml DAILY KWAKU Administration Ranitidine HCl 150 mg 08/27/16 12:15 11/04/16 21:00 Zantac Oral Solution - PO 150 mg BID KWAKU Administration Scopolamine HBr 1 patch 05/20/16 15:45 11/04/16 18:00 Transderm-Scop - TD 1 patch Q72H KWAKU Administration Simethicone 40 mg 08/25/16 10:00 11/04/16 10:01 Mylicon Liquid - PEG 40 mg DAILY KWAKU Administration Assessment: 76 year old male with PMHx of HTN, IDDM, inguinal hernia who presented to the ED with diverticular bleed s/p Righ hemicolectomy with hospital course complicated 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 Plan: 1. Anoxic brain injury s/p brainstem CVAs - Mental status unchanged 2. Respiratory failure secondary to anoxic brain injury - Cont O2 via room air, NC when needed - Duonebs PRN 3. HTN - Controlled - Continue lisinopril, amlodipine, lopressor 4. Multiple pressure ulcers - Daily wound care - Turn and position q2h 5. IDDM - Levemir at 20u sq qhs - ISS BGM ACHS 6. Nutrition - 70 ml/hr Glucerna 1.5, 65 ml/hr water flushes - Prostat daily - Zantac BID 7. Prophylaxis: - SCDs bilaterally - No chemical AC 2/2 spontaneous gluteal bleed and severe GI bleed - Functional quadriplegia Visit type - Emergency Visit Emergency Visit: Yes ED Registration Date: 06/27/15 Care time: The patient presented to the Emergency Department on the above date and was hospitalized for further evaluation of their emergent condition. - New Patient This patient is new to me today: No - Critical Care Critical Care patient: No
[2016-11-05] MEDS: LACTOBACILLUS ACIDOPHILUS 1 EACH TAB (FP) PO SCH (10:40)
[2016-11-05] MEDS: RANITIDINE HCL 150 MG/10 ML UNIT-DOSE CUP PO SCH ×2 (10:40→21:55)
[2016-11-05] MEDS: AMINO ACIDS/PROTEIN HYDROLYS SUGAR-FREE 30 ML PACKET PO SCH (10:40)
[2016-11-05] MEDS: amLODIPine BESYLATE 10 MG TABLET (FP) GT SCH (10:40)
[2016-11-05] MEDS: MULTIVITAMINS LIQUID THERAPEUTIC 118 ML BOT GT SCH (10:40)
[2016-11-05] MEDS: SIMETHICONE 40 MG/0.6 ML BOTTLE PEG SCH (10:41)
[2016-11-05] MEDS: LISINOPRIL 20 MG TABLET (FP) GT SCH (10:41)
[2016-11-05] MEDS: METOPROLOL TARTRATE 50 MG TABLET (FP) GT SCH ×2 (10:41→21:55)
[2016-11-05] MEDS: BACITRACIN 15 GM TUBE TOPICAL OINTMENT TP SCH (10:41)
[2016-11-05] MEDS: INSULIN DETEMIR 100 UNITS/ML MDV SQ SCH (21:54)
[2016-11-05] MEDS: ACETAMINOPHEN 650 MG/20.3 ML ORAL SOLUTION (CUPS) GT PRN (21:55)
[2016-11-06] MEDS: INSULIN SLIDING SCALE (NOVOLOG) 1 VIAL SQ SCH ×4 (06:03→22:14)
[2016-11-06 08:23] LABS: CALCIUM 9.9 mg/dL (8.5-10.1); CREATININE 0.8 mg/dL (0.7-1.3)
--- NOTE | 2016-11-06 12:12 | PN ---
Physical Exam: SUBJECTIVE: Patient seen and examined. No events overnight, remains at his baseline. Comfortable at rest. Non verbal at baseline. OBJECTIVE: GENERAL: appears comfortable at rest, Tolerating feeds HEAD: Normal with no signs of trauma NECK: Trach removed, site is c/d/i, no redness or drainage noted. LUNGS: Scattered rhonchi on anterior lung baeza HEART: Regular rate and rhythm, heart rate 80 - 90s ABDOMEN: peg tube LUQ - on Jevity feeds with water flushes NEUROLOGICAL: at baseline, opens eyes intermittently SKIN: chronic pressure ulcer on buttocks. Vital Signs Period Temp Pulse Resp BP Sys/Santiago Pulse Ox Last 24 Hr 97.6 F-98.1 F 58-84 18-18 132-153/80-89 98 Laboratory Results - last 24 hr 11/05/16 11/05/16 11/05/16 12:35 17:45 21:52 Sodium Potassium Chloride Carbon Dioxide Anion Gap BUN Creatinine POC Glucometer 141 146 145 Random Glucose Calcium 11/06/16 11/06/16 05:11 06:05 Sodium 143 Potassium 3.6 Chloride 102 Carbon Dioxide 33 H Anion Gap 8 BUN 23 H Creatinine 0.8 POC Glucometer 128 Random Glucose 116 H Calcium 9.9 Active Medications Generic Name Dose Route Start Last Admin Trade Name Freq PRN Reason Stop Dose Admin Acetaminophen 650 mg 05/26/16 14:23 11/05/16 21:55 Tylenol Oral Solution - GT 650 mg Q4H PRN Administration FEVER Amino Acids 30 ml 06/28/16 10:00 11/05/16 10:40 Prostat Sugar-Free Packet - PO 30 ml DAILY KWAKU Administration Amlodipine Besylate 10 mg 12/30/15 10:00 11/05/16 10:40 Norvasc - GT 10 mg DAILY KWAKU Administration Bacitracin 1 applic 08/09/16 16:15 11/05/16 10:41 Bacitracin - TP 1 applic DAILY KWAKU Administration Guaifenesin 10 ml 12/29/15 10:43 10/27/16 11:35 Robitussin Dm - PO 10 ml Q6H PRN Administration COUGH Insulin Aspart 1 vial 09/17/16 16:30 11/06/16 06:03 Novolog Vial Sliding Scale - SQ Not Given ACHS [facility] Protocol Insulin Detemir 20 units 09/21/16 13:25 11/05/16 21:54 Levemir Vial SQ 20 units HS KWAKU Administration Lactobacillus Acidophilus 1 tab 12/30/15 10:00 11/05/16 10:40 Bacid - PO 1 tab DAILY KWAKU Administration Lisinopril 40 mg 12/30/15 10:00 11/05/16 10:41 Prinivil GT 40 mg DAILY KWAKU Administration Metoprolol Tartrate 150 mg 12/29/15 22:00 11/05/16 21:55 Lopressor - GT 150 mg BID KWAKU Administration Metoprolol Tartrate 5 mg 12/29/15 10:43 Lopressor Injection - IVPB Q6H PRN HYPERTENSION Multivitamins 5 ml 10/16/16 16:30 11/05/16 10:40 Thera-Plus - GT 5 ml DAILY KWAKU Administration Ranitidine HCl 150 mg 08/27/16 12:15 11/05/16 21:55 Zantac Oral Solution - PO 150 mg BID KWAKU Administration Scopolamine HBr 1 patch 05/20/16 15:45 11/04/16 18:00 Transderm-Scop - TD 1 patch Q72H KWAKU Administration Simethicone 40 mg 08/25/16 10:00 11/05/16 10:41 Mylicon Liquid - PEG 40 mg DAILY KWAKU Administration ASSESSMENT/PLAN: Patient is a 76 year old male with a past medical history of IDDM, HTN and inguinal hernia. He presented to the emergency room on 06/27/2015 with a diverticular bleed s/p right hemicolectomy. His hospitalization was further complicated with a CVA with anoxic brain injury. He is s/p trach secondary to respiratory failure. Integumentary - chronic Assessment/Plan: Chronic wounds on sacrum. Continue turn and position, zinc and Prostat BID GI: Aspiration Precautions - chronic Assessment/Plan: Tolerating tube feeds. 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 Pulmonary: Respiratory Failure - chronic Assessment/Plan: Tolerating room air. Has respiratory failure secondary to anoxic brain injury. He is on duonebs PRN, Trach collar removed - site open to air, CDI Endocrine: Diabetes - chronic Assessment/Plan: Tight glucose coverage, Capillary glucose ac/hs F.E.N. NPO Glucerna 70cc/hr with water flushes and 250cc free water BID Prostat for treatment of pressure ulcers Functional Quadraplegia Monitor for dehydration Prophylaxis: DVT: SCDs - both legs. No AC: contraindicated secondary to history of GI bleed GI Regimen: Ranitidine BID Bowel regimen: deferred He is bed bound and a total care Code Status: Patient continues to require inpatient hospitalization. DNR Visit type - Emergency Visit Emergency Visit: Yes ED Registration Date: 06/27/15 Care time: The patient presented to the Emergency Department on the above date and was hospitalized for further evaluation of their emergent condition. - New Patient This patient is new to me today: No - Critical Care Critical Care patient: No - Discharge Referral Referred to [facility] Med P.C.: No
[2016-11-06] MEDS: amLODIPine BESYLATE 10 MG TABLET (FP) GT SCH (12:39)
[2016-11-06] MEDS: METOPROLOL TARTRATE 50 MG TABLET (FP) GT SCH ×2 (12:39→22:07)
[2016-11-06] MEDS: LACTOBACILLUS ACIDOPHILUS 1 EACH TAB (FP) PO SCH (12:39)
[2016-11-06] MEDS: BACITRACIN 15 GM TUBE TOPICAL OINTMENT TP SCH (12:40)
[2016-11-06] MEDS: AMINO ACIDS/PROTEIN HYDROLYS SUGAR-FREE 30 ML PACKET PO SCH (12:40)
[2016-11-06] MEDS: RANITIDINE HCL 150 MG/10 ML UNIT-DOSE CUP PO SCH ×2 (12:40→22:07)
[2016-11-06] MEDS: guaiFENesin/D-METHORPHAN HB 10 ML UNIT-DOSE CUPS PO PRN (12:40)
[2016-11-06] MEDS: MULTIVITAMINS LIQUID THERAPEUTIC 118 ML BOT GT SCH (12:41)
[2016-11-06] MEDS: SIMETHICONE 40 MG/0.6 ML BOTTLE PEG SCH (12:41)
[2016-11-06] MEDS: LISINOPRIL 20 MG TABLET (FP) GT SCH (12:41)
[2016-11-06] MEDS: ACETAMINOPHEN 650 MG/20.3 ML ORAL SOLUTION (CUPS) GT PRN (12:52)
[2016-11-06] MEDS: INSULIN DETEMIR 100 UNITS/ML MDV SQ SCH (22:07)
[2016-11-07] MEDS: INSULIN SLIDING SCALE (NOVOLOG) 1 VIAL SQ SCH ×4 (06:34→21:48)
--- NOTE | 2016-11-07 10:32 | PN ---
Physical Exam: SUBJECTIVE: Patient seen and examined. No changes overnight, remains at his baseline. Appears comfortable at rest. He is non verbal. FLACC pain scale reveals no pain. OBJECTIVE: GENERAL: appears comfortable at rest, Tolerating feeds HEAD: Normal with no signs of trauma NECK: Trach removed, site is c/d/i, no redness or drainage noted. LUNGS: Scattered rhonchi on anterior lung baeza HEART: Regular rate and rhythm, heart rate 80 - 90s ABDOMEN: peg tube LUQ - on Jevity feeds with water flushes NEUROLOGICAL: at baseline, opens eyes intermittently SKIN: chronically healing wound on the sacrum Vital Signs Period Temp Pulse Resp BP Sys/Santiago Pulse Ox Last 24 Hr 98.3 F-98.7 F 68-80 18-20 131-149/72-88 99 Laboratory Results - last 24 hr 11/06/16 11/06/16 11/06/16 12:49 17:00 22:04 POC Glucometer 118 102 127 11/07/16 06:15 POC Glucometer 144 Active Medications Generic Name Dose Route Start Last Admin Trade Name Freq PRN Reason Stop Dose Admin Acetaminophen 650 mg 05/26/16 14:23 11/06/16 12:52 Tylenol Oral Solution - GT 650 mg Q4H PRN Administration FEVER Amino Acids 30 ml 06/28/16 10:00 11/06/16 12:40 Prostat Sugar-Free Packet - PO 30 ml DAILY KWAKU Administration Amlodipine Besylate 10 mg 12/30/15 10:00 11/06/16 12:39 Norvasc - GT 10 mg DAILY KWAKU Administration Bacitracin 1 applic 08/09/16 16:15 11/06/16 12:40 Bacitracin - TP 1 applic DAILY KWAKU Administration Guaifenesin 10 ml 12/29/15 10:43 11/06/16 12:40 Robitussin Dm - PO 10 ml Q6H PRN Administration COUGH Insulin Aspart 1 vial 09/17/16 16:30 11/07/16 06:34 Novolog Vial Sliding Scale - SQ Not Given ACHS [facility] Protocol Insulin Detemir 20 units 09/21/16 13:25 11/06/16 22:07 Levemir Vial SQ 20 units HS KWAKU Administration Lactobacillus Acidophilus 1 tab 12/30/15 10:00 11/06/16 12:39 Bacid - PO 1 tab DAILY KWAKU Administration Lisinopril 40 mg 12/30/15 10:00 11/06/16 12:41 Prinivil GT 40 mg DAILY KWAKU Administration Metoprolol Tartrate 150 mg 12/29/15 22:00 11/06/16 22:07 Lopressor - GT 150 mg BID KWAKU Administration Metoprolol Tartrate 5 mg 12/29/15 10:43 Lopressor Injection - IVPB Q6H PRN HYPERTENSION Multivitamins 5 ml 10/16/16 16:30 11/06/16 12:41 Thera-Plus - GT 5 ml DAILY KWAKU Administration Ranitidine HCl 150 mg 08/27/16 12:15 11/06/16 22:07 Zantac Oral Solution - PO 150 mg BID KWAKU Administration Scopolamine HBr 1 patch 05/20/16 15:45 11/04/16 18:00 Transderm-Scop - TD 1 patch Q72H KWAKU Administration Simethicone 40 mg 08/25/16 10:00 11/06/16 12:41 Mylicon Liquid - PEG 40 mg DAILY KWAKU Administration ASSESSMENT/PLAN: Patient is a 76 year old male with a past medical history of IDDM, HTN and inguinal hernia. He presented to the emergency room on 06/27/2015 with a diverticular bleed s/p right hemicolectomy. His hospitalization was further complicated with a CVA with anoxic brain injury. He is s/p trach secondary to respiratory failure. He is currently tolerating room air, no pain on exam. Integumentary - chronic Assessment/Plan: Chronic wounds on sacrum. Continue turn and position, zinc and Prostat BID GI: Aspiration Precautions - chronic Assessment/Plan: Tolerating tube feeds. 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 Pulmonary: Respiratory Failure - chronic Assessment/Plan: Tolerating room air. Has respiratory failure secondary to anoxic brain injury. He is on duonebs PRN, Trach collar removed - site open to air, CDI Endocrine: Diabetes - chronic Assessment/Plan: Tight glucose coverage, Capillary glucose ac/hs F.E.N. NPO - all meds through GT Glucerna 70cc/hr with water flushes and 250cc free water BID via GT Prostat for treatment of pressure ulcers Functional Quadraplegia Monitor for dehydration Weekly labs Prophylaxis: DVT: SCDs - both legs. No AC: contraindicated secondary to history of GI bleed GI Regimen: Ranitidine BID Bowel regimen: deferred - secondary to soft stools He is bed bound and a total care Code Status: Patient continues to require inpatient hospitalization. Do Not Resuscitate. Visit type - Emergency Visit Emergency Visit: Yes ED Registration Date: 06/27/15 Care time: The patient presented to the Emergency Department on the above date and was hospitalized for further evaluation of their emergent condition. - New Patient This patient is new to me today: No - Critical Care Critical Care patient: No - Discharge Referral Referred to [facility] Med P.C.: No
[2016-11-07] MEDS: AMINO ACIDS/PROTEIN HYDROLYS SUGAR-FREE 30 ML PACKET PO SCH (11:46)
[2016-11-07] MEDS: METOPROLOL TARTRATE 50 MG TABLET (FP) GT SCH ×2 (11:46→21:36)
[2016-11-07] MEDS: amLODIPine BESYLATE 10 MG TABLET (FP) GT SCH (11:46)
[2016-11-07] MEDS: LACTOBACILLUS ACIDOPHILUS 1 EACH TAB (FP) PO SCH (11:46)
[2016-11-07] MEDS: LISINOPRIL 20 MG TABLET (FP) GT SCH (11:47)
[2016-11-07] MEDS: BACITRACIN 15 GM TUBE TOPICAL OINTMENT TP SCH (11:47)
[2016-11-07] MEDS: RANITIDINE HCL 150 MG/10 ML UNIT-DOSE CUP PO SCH ×2 (11:54→21:36)
[2016-11-07] MEDS: SIMETHICONE 40 MG/0.6 ML BOTTLE PEG SCH (11:54)
[2016-11-07] MEDS: MULTIVITAMINS LIQUID THERAPEUTIC 118 ML BOT GT SCH (11:54)
[2016-11-07] MEDS: SCOPOLAMINE HYDROBROMIDE 1 PATCH PATCH.TD72 TD SCH (14:56)
[2016-11-07] MEDS: INSULIN DETEMIR 100 UNITS/ML MDV SQ SCH (21:36)
[2016-11-08] MEDS: INSULIN SLIDING SCALE (NOVOLOG) 1 VIAL SQ SCH ×4 (06:06→23:03)
--- NOTE | 2016-11-08 08:47 | PN ---
Progress Note (short form) - Note Progress Note: Subjective: The patient was seen and examined at the bedside, non-verbal. Tolerating room air well No breathing pauses observed Current Medications Generic Name Dose Route Start Last Admin Trade Name Freq PRN Reason Stop Dose Admin Acetaminophen 650 mg 05/26/16 14:23 11/06/16 12:52 Tylenol Oral Solution - GT 650 mg Q4H PRN Administration FEVER Amino Acids 30 ml 06/28/16 10:00 11/07/16 11:46 Prostat Sugar-Free Packet - PO 30 ml DAILY KWAKU Administration Amlodipine Besylate 10 mg 12/30/15 10:00 11/07/16 11:46 Norvasc - GT 10 mg DAILY KWAKU Administration Bacitracin 1 applic 08/09/16 16:15 11/07/16 11:47 Bacitracin - TP 1 applic DAILY KWAKU Administration Guaifenesin 10 ml 12/29/15 10:43 11/06/16 12:40 Robitussin Dm - PO 10 ml Q6H PRN Administration COUGH Insulin Aspart 1 vial 09/17/16 16:30 11/08/16 06:06 Novolog Vial Sliding Scale - SQ Not Given ACHS [facility] Protocol Insulin Detemir 20 units 09/21/16 13:25 11/07/16 21:36 Levemir Vial SQ 20 units HS KWAKU Administration Lactobacillus Acidophilus 1 tab 12/30/15 10:00 11/07/16 11:46 Bacid - PO 1 tab DAILY KWAKU Administration Lisinopril 40 mg 12/30/15 10:00 11/07/16 11:47 Prinivil GT 40 mg DAILY KWAKU Administration Metoprolol Tartrate 150 mg 12/29/15 22:00 11/07/16 21:36 Lopressor - GT 150 mg BID KWAKU Administration Metoprolol Tartrate 5 mg 12/29/15 10:43 Lopressor Injection - IVPB Q6H PRN HYPERTENSION Multi-Ingredient Lotion 1 applic 11/07/16 11:55 Eucerin (Large Jar) - TP BID PRN DRY SKIN Multivitamins 5 ml 10/16/16 16:30 11/07/16 11:54 Thera-Plus - GT 5 ml DAILY KWAKU Administration Ranitidine HCl 150 mg 08/27/16 12:15 11/07/16 21:36 Zantac Oral Solution - PO 150 mg BID KWAKU Administration Scopolamine HBr 1 patch 07/23/16 15:45 11/07/16 14:56 Transderm-Scop - TD 1 patch Q72H KWAKU Administration Simethicone 40 mg 08/25/16 10:00 11/07/16 11:54 Mylicon Liquid - PEG 40 mg DAILY KWAKU Administration Objective: Vital Signs Period Temp Pulse Resp BP Sys/Santiago Pulse Ox Last 24 Hr 97.4 F-98.2 F 57-80 20-20 138-156/79-94 98-99 Physical Exam: General: No acute distress, tracking with eyes HEENT: Tracheal stoma Neuro: Eye tracking to verbal stimulus Pulm: CTA anteriorly CV: RRR, S1S2 Abd: Soft, non-distended. Normoactive bowel sounds. Peg tube c/d/i Ext: Warm, well-perfused. 2+ DP/PT bilaterally CBCD WBC 7.2 K/mm3 (4.0-10.0) 10/30/16 08:00 RBC 4.16 M/mm3 (4.00-5.60) 10/30/16 08:00 Hgb 12.4 GM/dL (11.7-16.9) 10/30/16 08:00 Hct 37.2 % (35.4-49) 10/30/16 08:00 MCV 89.2 fl (80-96) 10/30/16 08:00 MCHC 33.3 g/dl (32.0-35.9) 10/30/16 08:00 RDW 16.0 % (11.9-15.9) H 10/30/16 08:00 Plt Count 189 K/MM3 (134-434) 10/30/16 08:00 MPV 10.4 fl (7.5-11.1) 10/30/16 08:00 CMP Sodium 143 mmol/L (136-145) 11/06/16 06:05 Potassium 3.6 mmol/L (3.5-5.1) 11/06/16 06:05 Chloride 102 mmol/L (98-107) 11/06/16 06:05 Carbon Dioxide 33 mmol/L (21-32) H 11/06/16 06:05 Anion Gap 8 (8-16) 11/06/16 06:05 BUN 23 mg/dL (7-18) H 11/06/16 06:05 Creatinine 0.8 mg/dL (0.7-1.3) 11/06/16 06:05 Creat Clearance w eGFR > 60 (>60) 10/30/16 08:00 Random Glucose 116 mg/dL (74-106) H 11/06/16 06:05 Calcium 9.9 mg/dL (8.5-10.1) 11/06/16 06:05 Total Bilirubin 0.3 mg/dL (0.2-1.0) 10/30/16 08:00 AST 20 U/L (15-37) 10/30/16 08:00 ALT 40 U/L (12-78) 10/30/16 08:00 Alkaline Phosphatase 154 U/L (45-117) H 10/30/16 08:00 Total Protein 8.4 g/dl (6.4-8.2) H 10/30/16 08:00 Albumin 3.8 g/dl (3.4-5.0) 10/30/16 08:00 CARDIAC ENZYMES Creatine Kinase 62 IU/L (38-174) 06/28/15 09:35 Troponin I 0.07 ng/ml (0.03-0.5) D 07/09/15 05:00 Assessment: 75 year old male with PMHx of HTN, IDDM, inguinal hernia who presented to the ED with diverticular bleed s/p Righ hemicolectomy with 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 Plan: 1. Anoxic brain injury s/p brainstem CVAs - Mental status unchanged 2. 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 Respiratory failure secondary to anoxic brain injury - Cont O2 via room air, NC when needed - Trach removed 09/09/16 - Duonebs PRN 4. HTN - Continue lisinopril, amlodipine, lopressor 5. Multiple pressure ulcers - Turn and position q2h - Local wound care 6. IDDM - Continue Levemir at 20u sq qhs - ISS BGM ACHS 7. F/E/N: - 70 ml/hr Glucerna 1.5, 65 ml/hr water flushes - Prostat daily - Continue Zantac bid 8. Prophylaxis: - SCDs bilaterally (lower extremity doppler negative for DVTs 09/20/16) - No chemical anticoagulation 2/2 spontaneous gluteal bleed and severe GI bleed - Functional quadriplegia CODE STATUS: DNR Visit type - Emergency Visit Emergency Visit: Yes ED Registration Date: 06/27/15 Care time: The patient presented to the Emergency Department on the above date and was hospitalized for further evaluation of their emergent condition. - New Patient This patient is new to me today: No - Critical Care Critical Care patient: No
[2016-11-08] MEDS: AMINO ACIDS/PROTEIN HYDROLYS SUGAR-FREE 30 ML PACKET PO SCH (11:23)
[2016-11-08] MEDS: RANITIDINE HCL 150 MG/10 ML UNIT-DOSE CUP PO SCH ×2 (11:24→23:23)
[2016-11-08] MEDS: METOPROLOL TARTRATE 50 MG TABLET (FP) GT SCH ×2 (11:24→23:23)
[2016-11-08] MEDS: LACTOBACILLUS ACIDOPHILUS 1 EACH TAB (FP) PO SCH (11:24)
[2016-11-08] MEDS: SIMETHICONE 40 MG/0.6 ML BOTTLE PEG SCH (11:24)
[2016-11-08] MEDS: LISINOPRIL 20 MG TABLET (FP) GT SCH (11:24)
[2016-11-08] MEDS: BACITRACIN 15 GM TUBE TOPICAL OINTMENT TP SCH (11:24)
[2016-11-08] MEDS: amLODIPine BESYLATE 10 MG TABLET (FP) GT SCH (11:24)
[2016-11-08] MEDS: MULTIVITAMINS LIQUID THERAPEUTIC 118 ML BOT GT SCH (11:24)
[2016-11-08] MEDS: INSULIN DETEMIR 100 UNITS/ML MDV SQ SCH (23:23)
[2016-11-09] MEDS: INSULIN SLIDING SCALE (NOVOLOG) 1 VIAL SQ SCH ×4 (06:16→22:19)
[2016-11-09 07:28] LABS: MCHC 33.7 g/dl (32.0-35.9); MEAN CELL VOLUME 89.3 fl (80-96); PLATELET COUNT 193 K/MM3 (134-434); WHITE BLOOD COUNT 7.6 K/mm3 (4.0-10.0)
[2016-11-09 08:37] LABS: ALBUMIN 3.6 g/dl (3.4-5.0); ALK PHOS 145 U/L (45-117); ANION GAP 8 (8-16); BILIRUBIN,TOTAL 0.3 mg/dL (0.2-1.0); CALCIUM 9.8 mg/dL (8.5-10.1); CO2 30 mmol/L (21-32); CREATININE 0.7 mg/dL (0.7-1.3); GLUCOSE,RANDOM 116 mg/dL (74-106); SGOT/AST 26 U/L (15-37); SGPT/ALT 48 U/L (12-78); TOT PROT 7.7 g/dl (6.4-8.2)
[2016-11-09] MEDS: LACTOBACILLUS ACIDOPHILUS 1 EACH TAB (FP) PO SCH (13:07)
[2016-11-09] MEDS: LISINOPRIL 20 MG TABLET (FP) GT SCH (13:07)
[2016-11-09] MEDS: amLODIPine BESYLATE 10 MG TABLET (FP) GT SCH (13:07)
[2016-11-09] MEDS: METOPROLOL TARTRATE 50 MG TABLET (FP) GT SCH ×2 (13:07→22:18)
[2016-11-09] MEDS: ACETAMINOPHEN 650 MG/20.3 ML ORAL SOLUTION (CUPS) GT PRN (13:07)
[2016-11-09] MEDS: RANITIDINE HCL 150 MG/10 ML UNIT-DOSE CUP PO SCH ×2 (13:07→22:19)
[2016-11-09] MEDS: AMINO ACIDS/PROTEIN HYDROLYS SUGAR-FREE 30 ML PACKET PO SCH (13:08)
[2016-11-09] MEDS: guaiFENesin/D-METHORPHAN HB 10 ML UNIT-DOSE CUPS PO PRN (13:08)
[2016-11-09] MEDS: MULTIVITAMINS LIQUID THERAPEUTIC 118 ML BOT GT SCH (13:09)
[2016-11-09] MEDS: BACITRACIN 15 GM TUBE TOPICAL OINTMENT TP SCH (13:09)
[2016-11-09] MEDS: SIMETHICONE 40 MG/0.6 ML BOTTLE PEG SCH (13:09)
--- NOTE | 2016-11-09 15:55 | PN ---
Physical Exam: SUBJECTIVE: Patient seen and examined. Stable, no changes OBJECTIVE: Vital Signs Period Temp Pulse Resp BP Sys/Santiago Pulse Ox Last 24 Hr 97.8 F-98.2 F 72-87 18-18 133-167/74-77 98 PE Neuro: awake, non specific eye tracking Pulm: Clear anteriorly, trach hole open CV: s1 s2 rrr Abd: peg tube cdi : condom cath placed, urine clear, yellow Ext: foot drop, no edema Laboratory Results - last 24 hr 11/09/16 11/09/16 11/09/16 06:00 06:00 13:42 WBC 7.6 RBC 3.92 L Hgb 11.8 Hct 35.0 L MCV 89.3 MCHC 33.7 RDW 16.0 H Plt Count 193 MPV 10.0 Sodium 143 Potassium 3.7 Chloride 105 Carbon Dioxide 30 Anion Gap 8 BUN 22 H Creatinine 0.7 Creat Clearance w eGFR > 60 POC Glucometer 124 Random Glucose 116 H Calcium 9.8 Total Bilirubin 0.3 AST 26 D ALT 48 Alkaline Phosphatase 145 H Total Protein 7.7 Albumin 3.6 Active Medications Generic Name Dose Route Start Last Admin Trade Name Freq PRN Reason Stop Dose Admin Acetaminophen 650 mg 05/26/16 14:23 11/09/16 13:07 Tylenol Oral Solution - GT 650 mg Q4H PRN Administration FEVER Amino Acids 30 ml 06/28/16 10:00 11/09/16 13:08 Prostat Sugar-Free Packet - PO 30 ml DAILY KWAKU Administration Amlodipine Besylate 10 mg 12/30/15 10:00 11/09/16 13:07 Norvasc - GT 10 mg DAILY KWAKU Administration Bacitracin 1 applic 08/09/16 16:15 11/09/16 13:09 Bacitracin - TP 1 applic DAILY KWAKU Administration Guaifenesin 10 ml 12/29/15 10:43 11/09/16 13:08 Robitussin Dm - PO 10 ml Q6H PRN Administration COUGH Insulin Aspart 1 vial 09/17/16 16:30 11/09/16 13:10 Novolog Vial Sliding Scale - SQ Not Given ACHS KWAKU Protocol Insulin Detemir 20 units 09/21/16 13:25 11/08/16 23:23 Levemir Vial SQ 20 units HS KWAKU Administration Lactobacillus Acidophilus 1 tab 12/30/15 10:00 11/09/16 13:07 Bacid - PO 1 tab DAILY KWAKU Administration Lisinopril 40 mg 12/30/15 10:00 11/09/16 13:07 Prinivil GT 40 mg DAILY KWAKU Administration Metoprolol Tartrate 150 mg 12/29/15 22:00 11/09/16 13:07 Lopressor - GT 150 mg BID KWAKU Administration Metoprolol Tartrate 5 mg 12/29/15 10:43 Lopressor Injection - IVPB Q6H PRN HYPERTENSION Multi-Ingredient Lotion 1 applic 11/07/16 11:55 Eucerin (Large Jar) - TP BID PRN DRY SKIN Multivitamins 5 ml 10/16/16 16:30 11/09/16 13:09 Thera-Plus - GT 5 ml DAILY KWAKU Administration Ranitidine HCl 150 mg 08/27/16 12:15 11/09/16 13:07 Zantac Oral Solution - PO 150 mg BID KWAKU Administration Scopolamine HBr 1 patch 05/20/16 15:45 11/07/16 14:56 Transderm-Scop - TD 1 patch Q72H KWAKU Administration Simethicone 40 mg 08/25/16 10:00 11/09/16 13:09 Mylicon Liquid - PEG 40 mg DAILY KWAKU Administration Assessment: 76 year old male with PMHx of HTN, IDDM, inguinal hernia who presented to the ED with diverticular bleed s/p Righ hemicolectomy with hospital course complicated 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 Plan: 1. Anoxic brain injury s/p brainstem CVAs - Mental status unchanged 2. Respiratory failure with spontaneous breathing pauses 2/2 anoxic brain injury - No therapy for pauses per pulm - Supplemental o2 as needed - Duonebs PRN 3. HTN - Controlled - Continue lisinopril, amlodipine, lopressor 4. Multiple pressure ulcers - Daily wound care - Turn and position q2h 5. IDDM - Levemir at 20u sq qhs - ISS BGM ACHS 6. Nutrition - 70 ml/hr Glucerna 1.5, 65 ml/hr water flushes - Prostat daily - Zantac BID 7. Prophylaxis: - SCDs bilaterally - No chemical AC 2/2 spontaneous gluteal bleed and severe GI bleed - Functional quadriplegia Visit type - Emergency Visit Emergency Visit: Yes ED Registration Date: 06/27/15 Care time: The patient presented to the Emergency Department on the above date and was hospitalized for further evaluation of their emergent condition. - New Patient This patient is new to me today: No - Critical Care Critical Care patient: No
[2016-11-09] MEDS: INSULIN DETEMIR 100 UNITS/ML MDV SQ SCH (22:18)
[2016-11-10] MEDS: INSULIN SLIDING SCALE (NOVOLOG) 1 VIAL SQ SCH ×4 (06:19→23:08)
[2016-11-10] MEDS: METOPROLOL TARTRATE 50 MG TABLET (FP) GT SCH ×2 (10:53→22:42)
[2016-11-10] MEDS: LISINOPRIL 20 MG TABLET (FP) GT SCH (10:53)
[2016-11-10] MEDS: amLODIPine BESYLATE 10 MG TABLET (FP) GT SCH (10:53)
[2016-11-10] MEDS: AMINO ACIDS/PROTEIN HYDROLYS SUGAR-FREE 30 ML PACKET PO SCH (10:53)
[2016-11-10] MEDS: LACTOBACILLUS ACIDOPHILUS 1 EACH TAB (FP) PO SCH (10:53)
[2016-11-10] MEDS: MULTIVITAMINS LIQUID THERAPEUTIC 118 ML BOT GT SCH (10:54)
[2016-11-10] MEDS: SIMETHICONE 40 MG/0.6 ML BOTTLE PEG SCH (10:54)
[2016-11-10] MEDS: BACITRACIN 15 GM TUBE TOPICAL OINTMENT TP SCH (10:54)
[2016-11-10] MEDS: RANITIDINE HCL 150 MG/10 ML UNIT-DOSE CUP PO SCH ×2 (10:54→22:42)
--- NOTE | 2016-11-10 15:38 | PN ---
Physical Exam: SUBJECTIVE: Patient seen and examined. No issues. OBJECTIVE: Vital Signs Period Temp Pulse Resp BP Sys/Santiago Pulse Ox Last 24 Hr 97.3 F-98.3 F 76-101 18-24 147-149/82-94 99 PE Neuro: awake, non specific eye tracking Pulm: Clear anteriorly, trach hole open CV: s1 s2 rrr Abd: peg tube cdi : condom cath placed, urine clear, yellow Ext: foot drop, no edema Laboratory Results - last 24 hr 11/09/16 11/09/16 11/10/16 18:22 20:57 06:18 POC Glucometer 111 135 146 11/10/16 11:26 POC Glucometer 150 Active Medications Generic Name Dose Route Start Last Admin Trade Name Freq PRN Reason Stop Dose Admin Acetaminophen 650 mg 05/26/16 14:23 11/09/16 13:07 Tylenol Oral Solution - GT 650 mg Q4H PRN Administration FEVER Amino Acids 30 ml 06/28/16 10:00 11/10/16 10:53 Prostat Sugar-Free Packet - PO 30 ml DAILY KWAKU Administration Amlodipine Besylate 10 mg 12/30/15 10:00 11/10/16 10:53 Norvasc - GT 10 mg DAILY KWAKU Administration Guaifenesin 10 ml 12/29/15 10:43 11/09/16 13:08 Robitussin Dm - PO 10 ml Q6H PRN Administration COUGH Insulin Aspart 1 vial 09/17/16 16:30 11/10/16 11:29 Novolog Vial Sliding Scale - SQ Not Given ACHS [facility] Protocol Insulin Detemir 20 units 09/21/16 13:25 11/09/16 22:18 Levemir Vial SQ 20 units HS KWAKU Administration Lactobacillus Acidophilus 1 tab 12/30/15 10:00 11/10/16 10:53 Bacid - PO 1 tab DAILY KWAKU Administration Lisinopril 40 mg 12/30/15 10:00 11/10/16 10:53 Prinivil GT 40 mg DAILY KWAKU Administration Metoprolol Tartrate 150 mg 12/29/15 22:00 11/10/16 10:53 Lopressor - GT 150 mg BID KWAKU Administration Metoprolol Tartrate 5 mg 12/29/15 10:43 Lopressor Injection - IVPB Q6H PRN HYPERTENSION Multi-Ingredient Lotion 1 applic 11/07/16 11:55 Eucerin (Large Jar) - TP BID PRN DRY SKIN Multivitamins 5 ml 10/16/16 16:30 11/10/16 10:54 Thera-Plus - GT 5 ml DAILY KWAKU Administration Ranitidine HCl 150 mg 08/27/16 12:15 11/10/16 10:54 Zantac Oral Solution - PO 150 mg BID KWAKU Administration Scopolamine HBr 1 patch 05/20/16 15:45 11/07/16 14:56 Transderm-Scop - TD 1 patch Q72H WKAKU Administration Simethicone 40 mg 08/25/16 10:00 11/10/16 10:54 Mylicon Liquid - PEG 40 mg DAILY KWAKU Administration Assessment: 76 year old male with PMHx of HTN, IDDM, inguinal hernia who presented to the ED with diverticular bleed s/p Righ hemicolectomy with hospital course complicated 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 Plan: 1. Anoxic brain injury s/p brainstem CVAs - Mental status unchanged 2. Respiratory failure with spontaneous breathing pauses 2/2 anoxic brain injury - No therapy for pauses per pulm - Supplemental o2 as needed - Duonebs PRN 3. HTN - Controlled - Continue lisinopril, amlodipine, lopressor 4. Multiple pressure ulcers - Daily wound care - Turn and position q2h 5. IDDM - Levemir at 20u sq qhs - ISS BGM ACHS 6. Nutrition - 70 ml/hr Glucerna 1.5, 65 ml/hr water flushes - Prostat daily - Zantac BID 7. Prophylaxis: - SCDs bilaterally - No chemical AC 2/2 spontaneous gluteal bleed and severe GI bleed - Functional quadriplegia Visit type - Emergency Visit Emergency Visit: Yes ED Registration Date: 06/27/15 Care time: The patient presented to the Emergency Department on the above date and was hospitalized for further evaluation of their emergent condition. - New Patient This patient is new to me today: No - Critical Care Critical Care patient: No
[2016-11-10] MEDS: SCOPOLAMINE HYDROBROMIDE 1 PATCH PATCH.TD72 TD SCH (18:25)
[2016-11-10] MEDS: INSULIN DETEMIR 100 UNITS/ML MDV SQ SCH (23:08)
[2016-11-11] MEDS: INSULIN SLIDING SCALE (NOVOLOG) 1 VIAL SQ SCH ×3 (06:29→22:18)
[2016-11-11] MEDS: LACTOBACILLUS ACIDOPHILUS 1 EACH TAB (FP) PO SCH (12:52)
[2016-11-11] MEDS: AMINO ACIDS/PROTEIN HYDROLYS SUGAR-FREE 30 ML PACKET PO SCH (12:52)
[2016-11-11] MEDS: METOPROLOL TARTRATE 50 MG TABLET (FP) GT SCH ×2 (12:52→22:17)
[2016-11-11] MEDS: guaiFENesin/D-METHORPHAN HB 10 ML UNIT-DOSE CUPS PO PRN (12:53)
[2016-11-11] MEDS: amLODIPine BESYLATE 10 MG TABLET (FP) GT SCH (12:53)
[2016-11-11] MEDS: LISINOPRIL 20 MG TABLET (FP) GT SCH (12:53)
[2016-11-11] MEDS: SIMETHICONE 40 MG/0.6 ML BOTTLE PEG SCH (12:53)
[2016-11-11] MEDS: MULTIVITAMINS LIQUID THERAPEUTIC 118 ML BOT GT SCH (12:54)
[2016-11-11] MEDS: RANITIDINE HCL 150 MG/10 ML UNIT-DOSE CUP PO SCH ×2 (12:55→22:18)
[2016-11-11] MEDS: ACETAMINOPHEN 650 MG/20.3 ML ORAL SOLUTION (CUPS) GT PRN (13:06)
--- NOTE | 2016-11-11 13:16 | PN ---
Physical Exam: SUBJECTIVE: Patient seen and examined. Stable. OBJECTIVE: Vital Signs Period Temp Pulse Resp BP Sys/Santiago Pulse Ox Last 24 Hr 97.6 F-98.7 F 74-93 18-18 140-154/80-89 99 PE Neuro: awake, non specific eye tracking Pulm: Clear anteriorly, trach hole open CV: s1 s2 rrr Abd: peg tube cdi : condom cath placed, urine clear, yellow Ext: foot drop, no edema Laboratory Results - last 24 hr 11/10/16 11/10/16 11/11/16 16:47 22:46 05:29 POC Glucometer 151 129 161 Active Medications Generic Name Dose Route Start Last Admin Trade Name Freq PRN Reason Stop Dose Admin Acetaminophen 650 mg 05/26/16 14:23 11/09/16 13:07 Tylenol Oral Solution - GT 650 mg Q4H PRN Administration FEVER Amino Acids 30 ml 06/28/16 10:00 11/10/16 10:53 Prostat Sugar-Free Packet - PO 30 ml DAILY KWAKU Administration Amlodipine Besylate 10 mg 12/30/15 10:00 11/10/16 10:53 Norvasc - GT 10 mg DAILY KWAKU Administration Guaifenesin 10 ml 12/29/15 10:43 11/09/16 13:08 Robitussin Dm - PO 10 ml Q6H PRN Administration COUGH Insulin Aspart 1 vial 09/17/16 16:30 11/11/16 06:29 Novolog Vial Sliding Scale - SQ 4 units ACHS KWAKU Administration Protocol Insulin Detemir 20 units 09/21/16 13:25 11/10/16 23:08 Levemir Vial SQ 20 units HS KWAKU Administration Lactobacillus Acidophilus 1 tab 12/30/15 10:00 11/10/16 10:53 Bacid - PO 1 tab DAILY KWAKU Administration Lisinopril 40 mg 12/30/15 10:00 11/10/16 10:53 Prinivil GT 40 mg DAILY KWAKU Administration Metoprolol Tartrate 150 mg 12/29/15 22:00 11/10/16 22:42 Lopressor - GT 150 mg BID KWAKU Administration Metoprolol Tartrate 5 mg 12/29/15 10:43 Lopressor Injection - IVPB Q6H PRN HYPERTENSION Multi-Ingredient Lotion 1 applic 11/07/16 11:55 Eucerin (Large Jar) - TP BID PRN DRY SKIN Multivitamins 5 ml 10/16/16 16:30 11/10/16 10:54 Thera-Plus - GT 5 ml DAILY KWAKU Administration Ranitidine HCl 150 mg 08/27/16 12:15 11/10/16 22:42 Zantac Oral Solution - PO 150 mg BID KWAKU Administration Scopolamine HBr 1 patch 05/20/16 15:45 11/10/16 18:25 Transderm-Scop - TD 1 patch Q72H KWAKU Administration Simethicone 40 mg 08/25/16 10:00 11/10/16 10:54 Mylicon Liquid - PEG 40 mg DAILY KWAKU Administration Assessment: 76 year old male with PMHx of HTN, IDDM, inguinal hernia who presented to the ED with diverticular bleed s/p Righ hemicolectomy with hospital course complicated 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 Plan: 1. Anoxic brain injury s/p brainstem CVAs - Mental status unchanged 2. Respiratory failure with spontaneous breathing pauses 2/2 anoxic brain injury - No therapy for pauses per pulm - Supplemental o2 as needed - Duonebs PRN 3. HTN - Controlled - Continue lisinopril, amlodipine, lopressor 4. Multiple pressure ulcers - Daily wound care - Turn and position q2h 5. IDDM - Levemir at 20u sq qhs - ISS BGM ACHS 6. Nutrition - 70 ml/hr Glucerna 1.5, 65 ml/hr water flushes - Prostat daily - Zantac BID 7. Prophylaxis: - SCDs bilaterally - No chemical AC 2/2 spontaneous gluteal bleed and severe GI bleed - Functional quadriplegia Visit type - Emergency Visit Emergency Visit: Yes ED Registration Date: 06/27/15 Care time: The patient presented to the Emergency Department on the above date and was hospitalized for further evaluation of their emergent condition. - New Patient This patient is new to me today: No - Critical Care Critical Care patient: No
[2016-11-11] MEDS: INSULIN DETEMIR 100 UNITS/ML MDV SQ SCH (22:17)
[2016-11-12] MEDS: INSULIN SLIDING SCALE (NOVOLOG) 1 VIAL SQ SCH ×4 (07:22→21:44)
--- NOTE | 2016-11-12 09:15 | PN ---
Physical Exam: SUBJECTIVE: Patient seen and examined. OBJECTIVE: Vital Signs Period Temp Pulse Resp BP Sys/Santiago Pulse Ox Last 24 Hr 97.6 F-98.5 F 64-89 16-20 123-143/75-97 100 PE Neuro: asleep, nad, opens eyes Pulm: Clear anteriorly, trach hole open CV: s1 s2 rrr Abd: peg tube cdi : condom cath placed, urine clear, yellow Ext: foot drop, no edema Laboratory Results - last 24 hr 11/11/16 18:33 POC Glucometer 132 Active Medications Generic Name Dose Route Start Last Admin Trade Name Freq PRN Reason Stop Dose Admin Acetaminophen 650 mg 05/26/16 14:23 11/11/16 13:06 Tylenol Oral Solution - GT 650 mg Q4H PRN Administration FEVER Amino Acids 30 ml 06/28/16 10:00 11/11/16 12:52 Prostat Sugar-Free Packet - PO 30 ml DAILY KWAKU Administration Amlodipine Besylate 10 mg 12/30/15 10:00 11/11/16 12:53 Norvasc - GT 10 mg DAILY KWAKU Administration Guaifenesin 10 ml 12/29/15 10:43 11/11/16 12:53 Robitussin Dm - PO 10 ml Q6H PRN Administration COUGH Insulin Aspart 1 vial 09/17/16 16:30 11/12/16 07:22 Novolog Vial Sliding Scale - SQ Not Given ACHS [facility] Protocol Insulin Detemir 20 units 09/21/16 13:25 11/11/16 22:17 Levemir Vial SQ 20 units HS KWAKU Administration Lactobacillus Acidophilus 1 tab 12/30/15 10:00 11/11/16 12:52 Bacid - PO 1 tab DAILY KWAKU Administration Lisinopril 40 mg 12/30/15 10:00 11/11/16 12:53 Prinivil GT 40 mg DAILY KWAKU Administration Metoprolol Tartrate 150 mg 12/29/15 22:00 11/11/16 22:17 Lopressor - GT 150 mg BID KWAKU Administration Metoprolol Tartrate 5 mg 12/29/15 10:43 Lopressor Injection - IVPB Q6H PRN HYPERTENSION Multi-Ingredient Lotion 1 applic 11/07/16 11:55 Eucerin (Large Jar) - TP BID PRN DRY SKIN Multivitamins 5 ml 10/16/16 16:30 11/11/16 12:54 Thera-Plus - GT 5 ml DAILY KWAKU Administration Ranitidine HCl 150 mg 08/27/16 12:15 11/11/16 22:18 Zantac Oral Solution - PO 150 mg BID KWAKU Administration Scopolamine HBr 1 patch 05/20/16 15:45 11/10/16 18:25 Transderm-Scop - TD 1 patch Q72H KWAKU Administration Simethicone 40 mg 08/25/16 10:00 11/11/16 12:53 Mylicon Liquid - PEG 40 mg DAILY KWAKU Administration Assessment: 76 year old male with PMHx of HTN, IDDM, inguinal hernia who presented to the ED with diverticular bleed s/p Righ hemicolectomy with hospital course complicated 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 Plan: 1. Anoxic brain injury s/p brainstem CVAs - Mental status unchanged 2. Respiratory failure with spontaneous breathing pauses 2/2 anoxic brain injury - No therapy for pauses per pulm - Supplemental o2 as needed - Duonebs PRN 3. HTN - Controlled - Continue lisinopril, amlodipine, lopressor 4. Multiple pressure ulcers - Daily wound care - Turn and position q2h 5. IDDM - Levemir at 20u sq qhs - ISS BGM ACHS 6. Nutrition - 70 ml/hr Glucerna 1.5, 65 ml/hr water flushes - Prostat daily - Zantac BID 7. Prophylaxis: - SCDs bilaterally - No chemical AC 2/2 spontaneous gluteal bleed and severe GI bleed - Functional quadriplegia Visit type - Emergency Visit Emergency Visit: Yes ED Registration Date: 06/27/15 Care time: The patient presented to the Emergency Department on the above date and was hospitalized for further evaluation of their emergent condition. - New Patient This patient is new to me today: No - Critical Care Critical Care patient: No
[2016-11-12] MEDS: METOPROLOL TARTRATE 50 MG TABLET (FP) GT SCH ×2 (13:14→21:41)
[2016-11-12] MEDS: LISINOPRIL 20 MG TABLET (FP) GT SCH (13:14)
[2016-11-12] MEDS: ACETAMINOPHEN 650 MG/20.3 ML ORAL SOLUTION (CUPS) GT PRN ×2 (13:15→21:41)
[2016-11-12] MEDS: LACTOBACILLUS ACIDOPHILUS 1 EACH TAB (FP) PO SCH (13:15)
[2016-11-12] MEDS: amLODIPine BESYLATE 10 MG TABLET (FP) GT SCH (13:15)
[2016-11-12] MEDS: guaiFENesin/D-METHORPHAN HB 10 ML UNIT-DOSE CUPS PO PRN (13:15)
[2016-11-12] MEDS: AMINO ACIDS/PROTEIN HYDROLYS SUGAR-FREE 30 ML PACKET PO SCH (13:16)
[2016-11-12] MEDS: RANITIDINE HCL 150 MG/10 ML UNIT-DOSE CUP PO SCH ×2 (13:17→21:41)
[2016-11-12] MEDS: MULTIVITAMINS LIQUID THERAPEUTIC 118 ML BOT GT SCH (13:17)
[2016-11-12] MEDS: SIMETHICONE 40 MG/0.6 ML BOTTLE PEG SCH (13:17)
[2016-11-12] MEDS: INSULIN DETEMIR 100 UNITS/ML MDV SQ SCH (21:44)
[2016-11-13] MEDS: INSULIN SLIDING SCALE (NOVOLOG) 1 VIAL SQ SCH ×4 (05:59→22:42)
[2016-11-13] MEDS: LACTOBACILLUS ACIDOPHILUS 1 EACH TAB (FP) PO SCH (09:53)
[2016-11-13] MEDS: AMINO ACIDS/PROTEIN HYDROLYS SUGAR-FREE 30 ML PACKET PO SCH (09:53)
[2016-11-13] MEDS: METOPROLOL TARTRATE 50 MG TABLET (FP) GT SCH ×2 (09:53→22:42)
[2016-11-13] MEDS: amLODIPine BESYLATE 10 MG TABLET (FP) GT SCH (09:54)
[2016-11-13] MEDS: RANITIDINE HCL 150 MG/10 ML UNIT-DOSE CUP PO SCH ×2 (09:54→22:42)
[2016-11-13] MEDS: LISINOPRIL 20 MG TABLET (FP) GT SCH (09:54)
--- NOTE | 2016-11-13 10:02 | PN ---
Physical Exam: SUBJECTIVE: Patient seen and examined. He appears comfortable at test, no facial grimacing. FLACC pain scale: 0. No events overnight, vitals stable. OBJECTIVE: GENERAL: appears comfortable at rest, Tolerating feeds HEAD: Normal with no signs of trauma NECK: Trach removed, site is c/d/i, no redness or drainage noted. LUNGS: Scattered rhonchi on anterior lung baeza HEART: Regular rate and rhythm, heart rate 80 - 90s ABDOMEN: peg tube LUQ - on Jevity feeds with water flushes NEUROLOGICAL: at baseline, opens eyes intermittently SKIN: chronically healing wound on the sacrum Vital Signs Period Temp Pulse Resp BP Sys/Santiago Pulse Ox Last 24 Hr 98.4 F-98.9 F 64-80 18-20 135-148/78-86 100 Laboratory Results - last 24 hr 11/12/16 11/12/16 11/12/16 13:29 18:53 21:43 POC Glucometer 132 152 146 11/13/16 05:48 POC Glucometer 135 Active Medications Generic Name Dose Route Start Last Admin Trade Name Freq PRN Reason Stop Dose Admin Acetaminophen 650 mg 05/26/16 14:23 11/12/16 21:41 Tylenol Oral Solution - GT 650 mg Q4H PRN Administration FEVER Amino Acids 30 ml 06/28/16 10:00 11/13/16 09:53 Prostat Sugar-Free Packet - PO 30 ml DAILY KWAKU Administration Amlodipine Besylate 10 mg 12/30/15 10:00 11/13/16 09:54 Norvasc - GT 10 mg DAILY KWAKU Administration Guaifenesin 10 ml 12/29/15 10:43 11/12/16 13:15 Robitussin Dm - PO 10 ml Q6H PRN Administration COUGH Insulin Aspart 1 vial 09/17/16 16:30 11/13/16 05:59 Novolog Vial Sliding Scale - SQ Not Given ACHS [facility] Protocol Insulin Detemir 20 units 09/21/16 13:25 11/12/16 21:44 Levemir Vial SQ 20 units HS KWAKU Administration Lactobacillus Acidophilus 1 tab 12/30/15 10:00 11/13/16 09:53 Bacid - PO 1 tab DAILY KWAKU Administration Lisinopril 40 mg 12/30/15 10:00 11/13/16 09:54 Prinivil GT 40 mg DAILY KWAKU Administration Metoprolol Tartrate 150 mg 12/29/15 22:00 11/13/16 09:53 Lopressor - GT 150 mg BID KWAKU Administration Metoprolol Tartrate 5 mg 12/29/15 10:43 Lopressor Injection - IVPB Q6H PRN HYPERTENSION Multi-Ingredient Lotion 1 applic 11/07/16 11:55 Eucerin (Large Jar) - TP BID PRN DRY SKIN Multivitamins 5 ml 10/16/16 16:30 11/12/16 13:17 Thera-Plus - GT 5 ml DAILY KWAKU Administration Ranitidine HCl 150 mg 08/27/16 12:15 11/13/16 09:54 Zantac Oral Solution - PO 150 mg BID KWAKU Administration Scopolamine HBr 1 patch 05/20/16 15:45 11/10/16 18:25 Transderm-Scop - TD 1 patch Q72H KWAKU Administration Simethicone 40 mg 08/25/16 10:00 11/12/16 13:17 Mylicon Liquid - PEG 40 mg DAILY KWAKU Administration ASSESSMENT/PLAN: Patient is a 76 year old male with a past medical history of IDDM, HTN and inguinal hernia. He presented to the emergency room on 06/27/2015 with a diverticular bleed s/p right hemicolectomy. His hospitalization was further complicated with a CVA with anoxic brain injury. He is s/p trach secondary to respiratory failure. He is currently tolerating room air, no pain on exam. Integumentary - chronic Assessment/Plan: Chronic wounds on sacrum. Continue turn and position, zinc and Prostat BID GI: Aspiration Precautions - chronic Assessment/Plan: Tolerating tube feeds. 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 Pulmonary: Respiratory Failure - chronic Assessment/Plan: Tolerating room air. Has respiratory failure secondary to anoxic brain injury. He is on duonebs PRN, Trach collar removed - site open to air, CDI Endocrine: Diabetes - chronic Assessment/Plan: Tight glucose coverage, Capillary glucose ac/hs F.E.N. NPO - all meds through GT Glucerna 70cc/hr with water flushes and 250cc free water BID via GT Prostat for treatment of pressure ulcers Functional Quadraplegia Monitor for dehydration Weekly labs Prophylaxis: DVT: SCDs - both legs. No AC: contraindicated secondary to history of GI bleed GI Regimen: Ranitidine BID Bowel regimen: deferred - secondary to soft stools He is bed bound and a total care Code Status: Patient continues to require inpatient hospitalization. Do Not Resuscitate. Visit type - Emergency Visit Emergency Visit: Yes ED Registration Date: 06/27/15 Care time: The patient presented to the Emergency Department on the above date and was hospitalized for further evaluation of their emergent condition. - New Patient This patient is new to me today: No - Critical Care Critical Care patient: No - Discharge Referral Referred to [facility] No
[2016-11-13] MEDS: MULTIVITAMINS LIQUID THERAPEUTIC 118 ML BOT GT SCH (10:55)
[2016-11-13] MEDS: SIMETHICONE 40 MG/0.6 ML BOTTLE PEG SCH (11:03)
[2016-11-13] MEDS: SCOPOLAMINE HYDROBROMIDE 1 PATCH PATCH.TD72 TD SCH (15:09)
[2016-11-13] MEDS: INSULIN DETEMIR 100 UNITS/ML MDV SQ SCH (22:42)
[2016-11-14] MEDS: INSULIN SLIDING SCALE (NOVOLOG) 1 VIAL SQ SCH ×4 (06:14→22:35)
[2016-11-14 07:49] LABS: ALBUMIN 3.7 g/dl (3.4-5.0); ANION GAP 9 (8-16); BILIRUBIN,TOTAL 0.4 mg/dL (0.2-1.0); CALCIUM 9.8 mg/dL (8.5-10.1); CO2 31 mmol/L (21-32); CREATININE 0.9 mg/dL (0.7-1.3); GLUCOSE,RANDOM 131 mg/dL (74-106); SGOT/AST 28 U/L (15-37); SGPT/ALT 54 U/L (12-78); TOT PROT 8.3 g/dl (6.4-8.2)
[2016-11-14 07:50] LABS: ALK PHOS 141 U/L (45-117)
[2016-11-14 08:21] LABS: BASOPHIL 0.5 % (0-2.0); EOSINOPHIL 4.8 % (0-4.5); MCH 30.1 pg (25.7-33.7); MCHC 33.6 g/dl (32.0-35.9); MEAN CELL VOLUME 89.8 fl (80-96); MEAN PLT VOLUME 10.1 fl (7.5-11.1); NEUTROPHILS 54.8 % (42.8-82.8); PLATELET COUNT 191 K/MM3 (134-434); RDW 15.8 % (11.9-15.9); WHITE BLOOD COUNT 8.3 K/mm3 (4.0-10.0)
--- NOTE | 2016-11-14 09:22 | PN ---
Physical Exam: SUBJECTIVE: Patient seen and examined. He appears comfortable at test, no facial grimacing. FLACC pain scale: 0. No events overnight, vitals stable. OBJECTIVE: Vital Signs Period Temp Pulse Resp BP Sys/Santiago Pulse Ox Last 24 Hr 97 F-98.6 F 68-81 19-20 134-150/78-88 98-99 GENERAL: appears comfortable at rest, Tolerating feeds HEAD: Normal with no signs of trauma NECK: Trach removed, site is c/d/i, no redness or drainage noted. LUNGS: Scattered rhonchi on anterior lung baeza HEART: Regular rate and rhythm, heart rate 80 - 90s ABDOMEN: peg tube LUQ - on Jevity feeds with water flushes NEUROLOGICAL: at baseline, opens eyes intermittently SKIN: chronically healing wound on the sacrum Laboratory Results - last 24 hr 11/13/16 11/13/16 11/13/16 11:59 18:02 22:40 WBC RBC Hgb Hct MCV MCHC RDW Plt Count MPV Neutrophils % Lymphocytes % Monocytes % Eosinophils % Basophils % Sodium Potassium Chloride Carbon Dioxide Anion Gap BUN Creatinine Creat Clearance w eGFR POC Glucometer 139 133 136 Random Glucose Calcium Total Bilirubin AST ALT Alkaline Phosphatase Total Protein Albumin 11/14/16 11/14/16 11/14/16 05:50 06:00 06:00 WBC 8.3 RBC 4.10 Hgb 12.4 Hct 36.9 MCV 89.8 MCHC 33.6 RDW 15.8 Plt Count 191 MPV 10.1 Neutrophils % 54.8 Lymphocytes % 34.2 Monocytes % 5.7 Eosinophils % 4.8 H Basophils % 0.5 Sodium 144 Potassium 3.8 Chloride 104 Carbon Dioxide 31 Anion Gap 9 BUN 24 H Creatinine 0.9 D Creat Clearance w eGFR > 60 POC Glucometer 157 Random Glucose 131 H Calcium 9.8 Total Bilirubin 0.4 D AST 28 ALT 54 Alkaline Phosphatase 141 H Total Protein 8.3 H Albumin 3.7 Active Medications Generic Name Dose Route Start Last Admin Trade Name Freq PRN Reason Stop Dose Admin Acetaminophen 650 mg 05/26/16 14:23 11/12/16 21:41 Tylenol Oral Solution - GT 650 mg Q4H PRN Administration FEVER Amino Acids 30 ml 06/28/16 10:00 11/13/16 09:53 Prostat Sugar-Free Packet - PO 30 ml DAILY KWAKU Administration Amlodipine Besylate 10 mg 12/30/15 10:00 11/13/16 09:54 Norvasc - GT 10 mg DAILY KWAKU Administration Guaifenesin 10 ml 12/29/15 10:43 11/12/16 13:15 Robitussin Dm - PO 10 ml Q6H PRN Administration COUGH Insulin Aspart 1 vial 09/17/16 16:30 11/14/16 06:14 Novolog Vial Sliding Scale - SQ 4 units ACHS KWAKU Administration Protocol Insulin Detemir 20 units 09/21/16 13:25 11/13/16 22:42 Levemir Vial SQ 20 units HS KWAKU Administration Lactobacillus Acidophilus 1 tab 12/30/15 10:00 11/13/16 09:53 Bacid - PO 1 tab DAILY KWAKU Administration Lisinopril 40 mg 12/30/15 10:00 11/13/16 09:54 Prinivil GT 40 mg DAILY KWAKU Administration Metoprolol Tartrate 150 mg 12/29/15 22:00 11/13/16 22:42 Lopressor - GT 150 mg BID KWAKU Administration Metoprolol Tartrate 5 mg 12/29/15 10:43 Lopressor Injection - IVPB Q6H PRN HYPERTENSION Multi-Ingredient Lotion 1 applic 11/07/16 11:55 Eucerin (Large Jar) - TP BID PRN DRY SKIN Multivitamins 5 ml 10/16/16 16:30 11/13/16 10:55 Thera-Plus - GT 5 ml DAILY KWAKU Administration Ranitidine HCl 150 mg 08/27/16 12:15 11/13/16 22:42 Zantac Oral Solution - PO 150 mg BID KWAKU Administration Scopolamine HBr 1 patch 05/20/16 15:45 11/13/16 15:09 Transderm-Scop - TD 1 patch Q72H KWAKU Administration Simethicone 40 mg 08/25/16 10:00 11/13/16 11:03 Mylicon Liquid - PEG 40 mg DAILY KWAKU Administration ASSESSMENT/PLAN: Patient is a 76 year old male with a past medical history of IDDM, HTN and inguinal hernia. He presented to the emergency room on 06/27/2015 with a diverticular bleed s/p right hemicolectomy. His hospitalization was further complicated with a CVA with anoxic brain injury. He is s/p trach secondary to respiratory failure. He is currently tolerating room air, no pain on exam. Integumentary - chronic Assessment/Plan: Chronic wounds on sacrum. Continue turn and position, zinc ointment and Prostat BID GI: Aspiration Precautions - chronic Assessment/Plan: Tolerating tube feeds. 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 Pulmonary: Respiratory Failure - resolved Assessment/Plan: Tolerating room air. Has respiratory failure secondary to anoxic brain injury. He is on duonebs PRN, Trach collar removed - site open to air, CDI Endocrine: Diabetes - chronic Assessment/Plan: Tight glucose coverage, Capillary glucose ac/hs F.E.N. NPO - all meds through GT Glucerna 70cc/hr with water flushes and 250cc free water BID via GT Prostat for treatment of pressure ulcers Functional Quadraplegia Monitor for dehydration Weekly labs Prophylaxis: DVT: SCDs - both legs. No AC: contraindicated secondary to history of GI bleed GI Regimen: Ranitidine BID Bowel regimen: deferred - secondary to soft stools He is bed bound and a total care Code Status: Patient continues to require inpatient hospitalization. Do Not Resuscitate. Visit type - Emergency Visit Emergency Visit: Yes ED Registration Date: 06/27/15 Care time: The patient presented to the Emergency Department on the above date and was hospitalized for further evaluation of their emergent condition. - New Patient This patient is new to me today: No - Critical Care Critical Care patient: No - Discharge Referral Referred to [facility] Med P.C[facility] No
[2016-11-14] MEDS: LACTOBACILLUS ACIDOPHILUS 1 EACH TAB (FP) PO SCH (11:04)
[2016-11-14] MEDS: METOPROLOL TARTRATE 50 MG TABLET (FP) GT SCH ×2 (11:04→22:32)
[2016-11-14] MEDS: LISINOPRIL 20 MG TABLET (FP) GT SCH (11:06)
[2016-11-14] MEDS: SIMETHICONE 40 MG/0.6 ML BOTTLE PEG SCH (11:06)
[2016-11-14] MEDS: amLODIPine BESYLATE 10 MG TABLET (FP) GT SCH (11:06)
[2016-11-14] MEDS: AMINO ACIDS/PROTEIN HYDROLYS SUGAR-FREE 30 ML PACKET PO SCH (11:06)
[2016-11-14] MEDS: MULTIVITAMINS LIQUID THERAPEUTIC 118 ML BOT GT SCH (11:07)
[2016-11-14] MEDS: RANITIDINE HCL 150 MG/10 ML UNIT-DOSE CUP PO SCH ×2 (11:07→22:32)
[2016-11-14] MEDS: INSULIN DETEMIR 100 UNITS/ML MDV SQ SCH (22:34)
[2016-11-15] MEDS: INSULIN SLIDING SCALE (NOVOLOG) 1 VIAL SQ SCH ×4 (06:17→21:48)
--- NOTE | 2016-11-15 08:32 | PN ---
Progress Note (short form) - Note Progress Note: Subjective: The patient was seen and examined at the bedside, non-verbal. Tolerating room air well Current Medications Generic Name Dose Route Start Last Admin Trade Name Freq PRN Reason Stop Dose Admin Acetaminophen 650 mg 05/26/16 14:23 11/12/16 21:41 Tylenol Oral Solution - GT 650 mg Q4H PRN Administration FEVER Amino Acids 30 ml 06/28/16 10:00 11/14/16 11:06 Prostat Sugar-Free Packet - PO 30 ml DAILY KWAKU Administration Amlodipine Besylate 10 mg 12/30/15 10:00 11/14/16 11:06 Norvasc - GT 10 mg DAILY KWAKU Administration Guaifenesin 10 ml 12/29/15 10:43 11/12/16 13:15 Robitussin Dm - PO 10 ml Q6H PRN Administration COUGH Insulin Aspart 1 vial 09/17/16 16:30 11/15/16 06:17 Novolog Vial Sliding Scale - SQ Not Given ACHS KWAKU Protocol Insulin Detemir 20 units 09/21/16 13:25 11/14/16 22:34 Levemir Vial SQ 20 units HS KWAKU Administration Lactobacillus Acidophilus 1 tab 12/30/15 10:00 11/14/16 11:04 Bacid - PO 1 tab DAILY KWAKU Administration Lisinopril 40 mg 12/30/15 10:00 11/14/16 11:06 Prinivil GT 40 mg DAILY KWAKU Administration Metoprolol Tartrate 150 mg 12/29/15 22:00 11/14/16 22:32 Lopressor - GT 150 mg BID KWAKU Administration Metoprolol Tartrate 5 mg 12/29/15 10:43 Lopressor Injection - IVPB Q6H PRN HYPERTENSION Multi-Ingredient Lotion 1 applic 11/07/16 11:55 Eucerin (Large Jar) - TP BID PRN DRY SKIN Multivitamins 5 ml 10/16/16 16:30 11/14/16 11:07 Thera-Plus - GT 5 ml DAILY KWAKU Administration Ranitidine HCl 150 mg 08/27/16 12:15 11/14/16 22:32 Zantac Oral Solution - PO 150 mg BID KWAKU Administration Scopolamine HBr 1 patch 05/20/16 15:45 11/13/16 15:09 Transderm-Scop - TD 1 patch Q72H KWAKU Administration Simethicone 40 mg 08/25/16 10:00 11/14/16 11:06 Mylicon Liquid - PEG 40 mg DAILY KWAKU Administration Objective: Vital Signs Period Temp Pulse Resp BP Sys/Santiago Pulse Ox Last 24 Hr 97.3 F-98.6 F 63-74 20-20 138-145/57-88 97-98 Physical Exam: General: No acute distress HEENT: Tracheal stoma Neuro: Opens eyes to verbal stimuli Pulm: CTA anteriorly CV: RRR, S1S2 Abd: Soft, non-distended. Normoactive bowel sounds. Peg tube c/d/i Ext: Warm, well-perfused. 2+ DP/PT bilaterally CBCD WBC 8.3 K/mm3 (4.0-10.0) 11/14/16 06:00 RBC 4.10 M/mm3 (4.00-5.60) 11/14/16 06:00 Hgb 12.4 GM/dL (11.7-16.9) 11/14/16 06:00 Hct 36.9 % (35.4-49) 11/14/16 06:00 MCV 89.8 fl (80-96) 11/14/16 06:00 MCHC 33.6 g/dl (32.0-35.9) 11/14/16 06:00 RDW 15.8 % (11.9-15.9) 11/14/16 06:00 Plt Count 191 K/MM3 (134-434) 11/14/16 06:00 MPV 10.1 fl (7.5-11.1) 11/14/16 06:00 CMP Sodium 144 mmol/L (136-145) 11/14/16 06:00 Potassium 3.8 mmol/L (3.5-5.1) 11/14/16 06:00 Chloride 104 mmol/L (98-107) 11/14/16 06:00 Carbon Dioxide 31 mmol/L (21-32) 11/14/16 06:00 Anion Gap 9 (8-16) 11/14/16 06:00 BUN 24 mg/dL (7-18) H 11/14/16 06:00 Creatinine 0.9 mg/dL (0.7-1.3) D 11/14/16 06:00 Creat Clearance w eGFR > 60 (>60) 11/14/16 06:00 Random Glucose 131 mg/dL (74-106) H 11/14/16 06:00 Calcium 9.8 mg/dL (8.5-10.1) 11/14/16 06:00 Total Bilirubin 0.4 mg/dL (0.2-1.0) D 11/14/16 06:00 AST 28 U/L (15-37) 11/14/16 06:00 ALT 54 U/L (12-78) 11/14/16 06:00 Alkaline Phosphatase 141 U/L (45-117) H 11/14/16 06:00 Total Protein 8.3 g/dl (6.4-8.2) H 11/14/16 06:00 Albumin 3.7 g/dl (3.4-5.0) 11/14/16 06:00 CARDIAC ENZYMES Creatine Kinase 62 IU/L (38-174) 06/28/15 09:35 Troponin I 0.07 ng/ml (0.03-0.5) D 07/09/15 05:00 Assessment: 75 year old male with PMHx of HTN, IDDM, inguinal hernia who presented to the ED with diverticular bleed s/p Righ hemicolectomy with 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 Plan: 1. Anoxic brain injury s/p brainstem CVAs - Mental status unchanged 2. 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 Respiratory failure secondary to anoxic brain injury - Cont O2 via room air, NC prn - Trach removed 09/09/16 - Duonebs PRN 4. HTN - Continue lisinopril, amlodipine, lopressor 5. Multiple pressure ulcers - Turn and position q2h - Local wound care 6. IDDM - Continue Levemir at 20u sq qhs - ISS BGM ACHS 7. F/E/N: - 70 ml/hr Glucerna 1.5, 65 ml/hr water flushes - Prostat daily - Continue Zantac bid 8. Prophylaxis: - SCDs bilaterally - No chemical anticoagulation 2/2 spontaneous gluteal bleed and severe GI bleed - Functional quadriplegia CODE STATUS: DNR Visit type - Emergency Visit Emergency Visit: Yes ED Registration Date: 06/27/15 Care time: The patient presented to the Emergency Department on the above date and was hospitalized for further evaluation of their emergent condition. - New Patient This patient is new to me today: No - Critical Care Critical Care patient: No
[2016-11-15] MEDS: AMINO ACIDS/PROTEIN HYDROLYS SUGAR-FREE 30 ML PACKET PO SCH (12:24)
[2016-11-15] MEDS: LISINOPRIL 20 MG TABLET (FP) GT SCH (12:24)
[2016-11-15] MEDS: LACTOBACILLUS ACIDOPHILUS 1 EACH TAB (FP) PO SCH (12:24)
[2016-11-15] MEDS: amLODIPine BESYLATE 10 MG TABLET (FP) GT SCH (12:25)
[2016-11-15] MEDS: RANITIDINE HCL 150 MG/10 ML UNIT-DOSE CUP PO SCH ×2 (12:25→21:48)
[2016-11-15] MEDS: MULTIVITAMINS LIQUID THERAPEUTIC 118 ML BOT GT SCH (12:26)
[2016-11-15] MEDS: SIMETHICONE 40 MG/0.6 ML BOTTLE PEG SCH (12:27)
[2016-11-15] MEDS: METOPROLOL TARTRATE 50 MG TABLET (FP) GT SCH ×2 (12:27→21:48)
[2016-11-15] MEDS: INSULIN DETEMIR 100 UNITS/ML MDV SQ SCH (21:47)
[2016-11-16] MEDS: INSULIN SLIDING SCALE (NOVOLOG) 1 VIAL SQ SCH ×4 (06:24→21:58)
--- NOTE | 2016-11-16 08:31 | PN ---
Progress Note (short form) - Note Progress Note: Subjective: The patient was seen and examined at the bedside, non-verbal. Tolerating room air well Current Medications Generic Name Dose Route Start Last Admin Trade Name Freq PRN Reason Stop Dose Admin Acetaminophen 650 mg 05/26/16 14:23 11/12/16 21:41 Tylenol Oral Solution - GT 650 mg Q4H PRN Administration FEVER Amino Acids 30 ml 06/28/16 10:00 11/15/16 12:24 Prostat Sugar-Free Packet - PO 30 ml DAILY KWAKU Administration Amlodipine Besylate 10 mg 12/30/15 10:00 11/15/16 12:25 Norvasc - GT 10 mg DAILY KWAKU Administration Guaifenesin 10 ml 12/29/15 10:43 11/12/16 13:15 Robitussin Dm - PO 10 ml Q6H PRN Administration COUGH Insulin Aspart 1 vial 09/17/16 16:30 11/16/16 06:24 Novolog Vial Sliding Scale - SQ Not Given ACHS KWAKU Protocol Insulin Detemir 20 units 09/21/16 13:25 11/15/16 21:47 Levemir Vial SQ 20 units HS KWAKU Administration Lactobacillus Acidophilus 1 tab 12/30/15 10:00 11/15/16 12:24 Bacid - PO 1 tab DAILY KWAKU Administration Lisinopril 40 mg 12/30/15 10:00 11/15/16 12:24 Prinivil GT 40 mg DAILY KWAKU Administration Metoprolol Tartrate 150 mg 12/29/15 22:00 11/15/16 21:48 Lopressor - GT 150 mg BID KWAKU Administration Metoprolol Tartrate 5 mg 12/29/15 10:43 Lopressor Injection - IVPB Q6H PRN HYPERTENSION Multi-Ingredient Lotion 1 applic 11/07/16 11:55 Eucerin (Large Jar) - TP BID PRN DRY SKIN Multivitamins 5 ml 10/16/16 16:30 11/15/16 12:26 Thera-Plus - GT 5 ml DAILY KWAKU Administration Ranitidine HCl 150 mg 08/27/16 12:15 11/15/16 21:48 Zantac Oral Solution - PO 150 mg BID KWAKU Administration Scopolamine HBr 1 patch 05/20/16 15:45 11/13/16 15:09 Transderm-Scop - TD 1 patch Q72H KWAKU Administration Simethicone 40 mg 08/25/16 10:00 11/15/16 12:27 Mylicon Liquid - PEG 40 mg DAILY KWAKU Administration Objective: Vital Signs Period Temp Pulse Resp BP Sys/Santiago Pulse Ox Last 24 Hr 97.4 F-97.9 F 64-86 20-20 116-143/56-90 96-96 Physical Exam: General: No acute distress HEENT: Tracheal stoma Neuro: Opens eyes to verbal stimuli Pulm: CTA anteriorly CV: RRR, S1S2 Abd: Soft, non-distended. Normoactive bowel sounds. Peg tube c/d/i Ext: Warm, well-perfused. 2+ DP/PT bilaterally CBCD WBC 8.3 K/mm3 (4.0-10.0) 11/14/16 06:00 RBC 4.10 M/mm3 (4.00-5.60) 11/14/16 06:00 Hgb 12.4 GM/dL (11.7-16.9) 11/14/16 06:00 Hct 36.9 % (35.4-49) 11/14/16 06:00 MCV 89.8 fl (80-96) 11/14/16 06:00 MCHC 33.6 g/dl (32.0-35.9) 11/14/16 06:00 RDW 15.8 % (11.9-15.9) 11/14/16 06:00 Plt Count 191 K/MM3 (134-434) 11/14/16 06:00 MPV 10.1 fl (7.5-11.1) 11/14/16 06:00 CMP Sodium 144 mmol/L (136-145) 11/14/16 06:00 Potassium 3.8 mmol/L (3.5-5.1) 11/14/16 06:00 Chloride 104 mmol/L (98-107) 11/14/16 06:00 Carbon Dioxide 31 mmol/L (21-32) 11/14/16 06:00 Anion Gap 9 (8-16) 11/14/16 06:00 BUN 24 mg/dL (7-18) H 11/14/16 06:00 Creatinine 0.9 mg/dL (0.7-1.3) D 11/14/16 06:00 Creat Clearance w eGFR > 60 (>60) 11/14/16 06:00 Random Glucose 131 mg/dL (74-106) H 11/14/16 06:00 Calcium 9.8 mg/dL (8.5-10.1) 11/14/16 06:00 Total Bilirubin 0.4 mg/dL (0.2-1.0) D 11/14/16 06:00 AST 28 U/L (15-37) 11/14/16 06:00 ALT 54 U/L (12-78) 11/14/16 06:00 Alkaline Phosphatase 141 U/L (45-117) H 11/14/16 06:00 Total Protein 8.3 g/dl (6.4-8.2) H 11/14/16 06:00 Albumin 3.7 g/dl (3.4-5.0) 11/14/16 06:00 CARDIAC ENZYMES Creatine Kinase 62 IU/L (38-174) 06/28/15 09:35 Troponin I 0.07 ng/ml (0.03-0.5) D 07/09/15 05:00 Assessment: 75 year old male with PMHx of HTN, IDDM, inguinal hernia who presented to the ED with diverticular bleed s/p Righ hemicolectomy with 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 Plan: 1. Anoxic brain injury s/p brainstem CVAs - Mental status unchanged 2. 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 Respiratory failure secondary to anoxic brain injury - Cont O2 via room air, NC prn - Trach removed 09/09/16 - Duonebs PRN 4. HTN - Continue lisinopril, amlodipine, lopressor 5. Multiple pressure ulcers - Turn and position q2h - Local wound care 6. IDDM - Continue Levemir at 20u sq qhs - ISS BGM ACHS 7. F/E/N: - 70 ml/hr Glucerna 1.5, 65 ml/hr water flushes - Prostat daily - Continue Zantac bid 8. Prophylaxis: - SCDs bilaterally - No chemical anticoagulation 2/2 spontaneous gluteal bleed and severe GI bleed - Functional quadriplegia CODE STATUS: DNR Visit type - Emergency Visit Emergency Visit: Yes ED Registration Date: 06/27/15 Care time: The patient presented to the Emergency Department on the above date and was hospitalized for further evaluation of their emergent condition. - New Patient This patient is new to me today: No - Critical Care Critical Care patient: No
[2016-11-16] MEDS: RANITIDINE HCL 150 MG/10 ML UNIT-DOSE CUP PO SCH ×2 (11:58→21:58)
[2016-11-16] MEDS: AMINO ACIDS/PROTEIN HYDROLYS SUGAR-FREE 30 ML PACKET PO SCH (11:59)
[2016-11-16] MEDS: SIMETHICONE 40 MG/0.6 ML BOTTLE PEG SCH (11:59)
[2016-11-16] MEDS: guaiFENesin/D-METHORPHAN HB 10 ML UNIT-DOSE CUPS PO PRN (11:59)
[2016-11-16] MEDS: MULTIVITAMINS LIQUID THERAPEUTIC 118 ML BOT GT SCH (12:00)
[2016-11-16] MEDS: METOPROLOL TARTRATE 50 MG TABLET (FP) GT SCH ×2 (12:00→21:55)
[2016-11-16] MEDS: LACTOBACILLUS ACIDOPHILUS 1 EACH TAB (FP) PO SCH (12:01)
[2016-11-16] MEDS: LISINOPRIL 20 MG TABLET (FP) GT SCH (12:01)
[2016-11-16] MEDS: amLODIPine BESYLATE 10 MG TABLET (FP) GT SCH (12:01)
[2016-11-16] MEDS: SCOPOLAMINE HYDROBROMIDE 1 PATCH PATCH.TD72 TD SCH (15:52)
[2016-11-16] MEDS: INSULIN DETEMIR 100 UNITS/ML MDV SQ SCH (21:57)
[2016-11-17] MEDS: INSULIN SLIDING SCALE (NOVOLOG) 1 VIAL SQ SCH ×4 (06:13→21:41)
[2016-11-17] MEDS: SIMETHICONE 40 MG/0.6 ML BOTTLE PEG SCH (10:20)
[2016-11-17] MEDS: MULTIVITAMINS LIQUID THERAPEUTIC 118 ML BOT GT SCH (10:40)
--- NOTE | 2016-11-17 10:49 | PN ---
Progress Note (short form) - Note Progress Note: Subjective: The patient was seen and examined at the bedside, non-verbal. Tolerating room air well Current Medications Generic Name Dose Route Start Last Admin Trade Name Freq PRN Reason Stop Dose Admin Acetaminophen 650 mg 05/26/16 14:23 11/12/16 21:41 Tylenol Oral Solution - GT 650 mg Q4H PRN Administration FEVER Amino Acids 30 ml 06/28/16 10:00 11/16/16 11:59 Prostat Sugar-Free Packet - PO 30 ml DAILY KWAKU Administration Amlodipine Besylate 10 mg 12/30/15 10:00 11/16/16 12:01 Norvasc - GT 10 mg DAILY KWAKU Administration Guaifenesin 10 ml 12/29/15 10:43 11/16/16 11:59 Robitussin Dm - PO 10 ml Q6H PRN Administration COUGH Insulin Aspart 1 vial 09/17/16 16:30 11/17/16 06:13 Novolog Vial Sliding Scale - SQ Not Given ACHS KWAKU Protocol Insulin Detemir 20 units 09/21/16 13:25 11/16/16 21:57 Levemir Vial SQ 20 units HS KWAKU Administration Lactobacillus Acidophilus 1 tab 12/30/15 10:00 11/16/16 12:01 Bacid - PO 1 tab DAILY KWAKU Administration Lisinopril 40 mg 12/30/15 10:00 11/16/16 12:01 Prinivil GT 40 mg DAILY KWAKU Administration Metoprolol Tartrate 150 mg 12/29/15 22:00 11/16/16 21:55 Lopressor - GT 150 mg BID KWAKU Administration Metoprolol Tartrate 5 mg 12/29/15 10:43 Lopressor Injection - IVPB Q6H PRN HYPERTENSION Multi-Ingredient Lotion 1 applic 11/07/16 11:55 Eucerin (Large Jar) - TP BID PRN DRY SKIN Multivitamins 5 ml 10/16/16 16:30 11/16/16 12:00 Thera-Plus - GT 5 ml DAILY KWAKU Administration Ranitidine HCl 150 mg 08/27/16 12:15 11/16/16 21:58 Zantac Oral Solution - PO 150 mg BID KWAKU Administration Scopolamine HBr 1 patch 05/20/16 15:45 11/16/16 15:52 Transderm-Scop - TD 1 patch Q72H KWAKU Administration Simethicone 40 mg 08/25/16 10:00 11/16/16 11:59 Mylicon Liquid - PEG 40 mg DAILY KWAKU Administration Objective: Vital Signs Period Temp Pulse Resp BP Sys/Santiago Pulse Ox Last 24 Hr 98.2 F-98.8 F 77-108 18-20 119-154/74-95 99 Physical Exam: General: No acute distress HEENT: Tracheal stoma Neuro: Opens eyes to verbal stimuli Pulm: CTA anteriorly CV: RRR, S1S2 Abd: Soft, non-distended. Normoactive bowel sounds. Peg tube c/d/i Ext: Warm, well-perfused. 2+ DP/PT bilaterally CBCD WBC 8.3 K/mm3 (4.0-10.0) 11/14/16 06:00 RBC 4.10 M/mm3 (4.00-5.60) 11/14/16 06:00 Hgb 12.4 GM/dL (11.7-16.9) 11/14/16 06:00 Hct 36.9 % (35.4-49) 11/14/16 06:00 MCV 89.8 fl (80-96) 11/14/16 06:00 MCHC 33.6 g/dl (32.0-35.9) 11/14/16 06:00 RDW 15.8 % (11.9-15.9) 11/14/16 06:00 Plt Count 191 K/MM3 (134-434) 11/14/16 06:00 MPV 10.1 fl (7.5-11.1) 11/14/16 06:00 CMP Sodium 144 mmol/L (136-145) 11/14/16 06:00 Potassium 3.8 mmol/L (3.5-5.1) 11/14/16 06:00 Chloride 104 mmol/L (98-107) 11/14/16 06:00 Carbon Dioxide 31 mmol/L (21-32) 11/14/16 06:00 Anion Gap 9 (8-16) 11/14/16 06:00 BUN 24 mg/dL (7-18) H 11/14/16 06:00 Creatinine 0.9 mg/dL (0.7-1.3) D 11/14/16 06:00 Creat Clearance w eGFR > 60 (>60) 11/14/16 06:00 Random Glucose 131 mg/dL (74-106) H 11/14/16 06:00 Calcium 9.8 mg/dL (8.5-10.1) 11/14/16 06:00 Total Bilirubin 0.4 mg/dL (0.2-1.0) D 11/14/16 06:00 AST 28 U/L (15-37) 11/14/16 06:00 ALT 54 U/L (12-78) 11/14/16 06:00 Alkaline Phosphatase 141 U/L (45-117) H 11/14/16 06:00 Total Protein 8.3 g/dl (6.4-8.2) H 11/14/16 06:00 Albumin 3.7 g/dl (3.4-5.0) 11/14/16 06:00 CARDIAC ENZYMES Creatine Kinase 62 IU/L (38-174) 06/28/15 09:35 Troponin I 0.07 ng/ml (0.03-0.5) D 07/09/15 05:00 Assessment: 75 year old male with PMHx of HTN, IDDM, inguinal hernia who presented to the ED with diverticular bleed s/p Righ hemicolectomy with 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 Plan: 1. Anoxic brain injury s/p brainstem CVAs - Mental status unchanged 2. 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 Respiratory failure secondary to anoxic brain injury - Cont O2 via room air, NC prn - Trach removed 09/09/16 - Duonebs PRN 4. HTN - Continue lisinopril, amlodipine, lopressor 5. Multiple pressure ulcers - Turn and position q2h - Local wound care 6. IDDM - Continue Levemir at 20u sq qhs - ISS BGM ACHS 7. F/E/N: - 70 ml/hr Glucerna 1.5, 65 ml/hr water flushes - Prostat daily - Continue Zantac bid 8. Prophylaxis: - SCDs bilaterally - No chemical anticoagulation 2/2 spontaneous gluteal bleed and severe GI bleed - Functional quadriplegia CODE STATUS: DNR Visit type - Emergency Visit Emergency Visit: Yes ED Registration Date: 06/27/15 Care time: The patient presented to the Emergency Department on the above date and was hospitalized for further evaluation of their emergent condition. - New Patient This patient is new to me today: No - Critical Care Critical Care patient: No
[2016-11-17] MEDS: LISINOPRIL 20 MG TABLET (FP) GT SCH (13:16)
[2016-11-17] MEDS: METOPROLOL TARTRATE 50 MG TABLET (FP) GT SCH ×2 (13:16→21:42)
[2016-11-17] MEDS: LACTOBACILLUS ACIDOPHILUS 1 EACH TAB (FP) PO SCH (13:16)
[2016-11-17] MEDS: RANITIDINE HCL 150 MG/10 ML UNIT-DOSE CUP PO SCH ×2 (13:17→21:42)
[2016-11-17] MEDS: AMINO ACIDS/PROTEIN HYDROLYS SUGAR-FREE 30 ML PACKET PO SCH (13:17)
[2016-11-17] MEDS: amLODIPine BESYLATE 10 MG TABLET (FP) GT SCH (13:17)
[2016-11-17] MEDS: INSULIN DETEMIR 100 UNITS/ML MDV SQ SCH (21:42)
[2016-11-18] MEDS: INSULIN SLIDING SCALE (NOVOLOG) 1 VIAL SQ SCH ×4 (06:07→21:33)
--- NOTE | 2016-11-18 08:30 | PN ---
Progress Note (short form) - Note Progress Note: Subjective: The patient was seen and examined at the bedside, non-verbal. Tolerating room air well Current Medications Generic Name Dose Route Start Last Admin Trade Name Freq PRN Reason Stop Dose Admin Acetaminophen 650 mg 05/26/16 14:23 11/12/16 21:41 Tylenol Oral Solution - GT 650 mg Q4H PRN Administration FEVER Amino Acids 30 ml 06/28/16 10:00 11/17/16 13:17 Prostat Sugar-Free Packet - PO 30 ml DAILY KWAKU Administration Amlodipine Besylate 10 mg 12/30/15 10:00 11/17/16 13:17 Norvasc - GT 10 mg DAILY KWAKU Administration Guaifenesin 10 ml 12/29/15 10:43 11/16/16 11:59 Robitussin Dm - PO 10 ml Q6H PRN Administration COUGH Insulin Aspart 1 vial 09/17/16 16:30 11/18/16 06:07 Novolog Vial Sliding Scale - SQ Not Given ACHS KWAKU Protocol Insulin Detemir 20 units 09/21/16 13:25 11/17/16 21:42 Levemir Vial SQ 20 units HS KWAKU Administration Lactobacillus Acidophilus 1 tab 12/30/15 10:00 11/17/16 13:16 Bacid - PO 1 tab DAILY KWAKU Administration Lisinopril 40 mg 12/30/15 10:00 11/17/16 13:16 Prinivil GT 40 mg DAILY KWAKU Administration Metoprolol Tartrate 150 mg 12/29/15 22:00 11/17/16 21:42 Lopressor - GT 150 mg BID KWAKU Administration Metoprolol Tartrate 5 mg 12/29/15 10:43 Lopressor Injection - IVPB Q6H PRN HYPERTENSION Multi-Ingredient Lotion 1 applic 11/07/16 11:55 Eucerin (Large Jar) - TP BID PRN DRY SKIN Multivitamins 5 ml 10/16/16 16:30 11/17/16 10:40 Thera-Plus - GT 5 ml DAILY KWAKU Administration Ranitidine HCl 150 mg 08/27/16 12:15 11/17/16 21:42 Zantac Oral Solution - PO 150 mg BID KWAKU Administration Scopolamine HBr 1 patch 05/20/16 15:45 11/16/16 15:52 Transderm-Scop - TD 1 patch Q72H KWAKU Administration Simethicone 40 mg 08/25/16 10:00 11/17/16 10:20 Mylicon Liquid - PEG 40 mg DAILY KWAKU Administration Objective: Vital Signs Period Temp Pulse Resp BP Sys/Santiago Pulse Ox Last 24 Hr 97.6 F-98.2 F 69-81 18-20 124-143/73-89 98 Physical Exam: General: No acute distress HEENT: Tracheal stoma Neuro: Opens eyes to verbal stimuli Pulm: CTA anteriorly CV: RRR, S1S2 Abd: Soft, non-distended. Normoactive bowel sounds. Peg tube c/d/i Ext: Warm, well-perfused. 2+ DP/PT bilaterally CBCD WBC 8.3 K/mm3 (4.0-10.0) 11/14/16 06:00 RBC 4.10 M/mm3 (4.00-5.60) 11/14/16 06:00 Hgb 12.4 GM/dL (11.7-16.9) 11/14/16 06:00 Hct 36.9 % (35.4-49) 11/14/16 06:00 MCV 89.8 fl (80-96) 11/14/16 06:00 MCHC 33.6 g/dl (32.0-35.9) 11/14/16 06:00 RDW 15.8 % (11.9-15.9) 11/14/16 06:00 Plt Count 191 K/MM3 (134-434) 11/14/16 06:00 MPV 10.1 fl (7.5-11.1) 11/14/16 06:00 CMP Sodium 144 mmol/L (136-145) 11/14/16 06:00 Potassium 3.8 mmol/L (3.5-5.1) 11/14/16 06:00 Chloride 104 mmol/L (98-107) 11/14/16 06:00 Carbon Dioxide 31 mmol/L (21-32) 11/14/16 06:00 Anion Gap 9 (8-16) 11/14/16 06:00 BUN 24 mg/dL (7-18) H 11/14/16 06:00 Creatinine 0.9 mg/dL (0.7-1.3) D 11/14/16 06:00 Creat Clearance w eGFR > 60 (>60) 11/14/16 06:00 Random Glucose 131 mg/dL (74-106) H 11/14/16 06:00 Calcium 9.8 mg/dL (8.5-10.1) 11/14/16 06:00 Total Bilirubin 0.4 mg/dL (0.2-1.0) D 11/14/16 06:00 AST 28 U/L (15-37) 11/14/16 06:00 ALT 54 U/L (12-78) 11/14/16 06:00 Alkaline Phosphatase 141 U/L (45-117) H 11/14/16 06:00 Total Protein 8.3 g/dl (6.4-8.2) H 11/14/16 06:00 Albumin 3.7 g/dl (3.4-5.0) 11/14/16 06:00 CARDIAC ENZYMES Creatine Kinase 62 IU/L (38-174) 06/28/15 09:35 Troponin I 0.07 ng/ml (0.03-0.5) D 07/09/15 05:00 Assessment: 75 year old male with PMHx of HTN, IDDM, inguinal hernia who presented to the ED with diverticular bleed s/p Righ hemicolectomy with 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 Plan: 1. Anoxic brain injury s/p brainstem CVAs - Mental status unchanged 2. 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 Respiratory failure secondary to anoxic brain injury - Cont O2 via room air, NC prn - Trach removed 09/09/16 - Duonebs PRN 4. HTN - Continue lisinopril, amlodipine, lopressor 5. Multiple pressure ulcers - Turn and position q2h - Local wound care 6. IDDM - Continue Levemir at 20u sq qhs - ISS BGM ACHS 7. F/E/N: - 70 ml/hr Glucerna 1.5, 65 ml/hr water flushes - Prostat daily - Continue Zantac bid 8. Prophylaxis: - SCDs bilaterally - No chemical anticoagulation 2/2 spontaneous gluteal bleed and severe GI bleed - Functional quadriplegia CODE STATUS: DNR Visit type - Emergency Visit Emergency Visit: Yes ED Registration Date: 06/27/15 Care time: The patient presented to the Emergency Department on the above date and was hospitalized for further evaluation of their emergent condition. - New Patient This patient is new to me today: No - Critical Care Critical Care patient: No
[2016-11-18] MEDS: METOPROLOL TARTRATE 50 MG TABLET (FP) GT SCH ×2 (10:53→21:34)
[2016-11-18] MEDS: LACTOBACILLUS ACIDOPHILUS 1 EACH TAB (FP) PO SCH (10:53)
[2016-11-18] MEDS: SIMETHICONE 40 MG/0.6 ML BOTTLE PEG SCH (10:53)
[2016-11-18] MEDS: MULTIVITAMINS LIQUID THERAPEUTIC 118 ML BOT GT SCH (10:54)
[2016-11-18] MEDS: amLODIPine BESYLATE 10 MG TABLET (FP) GT SCH (10:54)
[2016-11-18] MEDS: AMINO ACIDS/PROTEIN HYDROLYS SUGAR-FREE 30 ML PACKET PO SCH (10:54)
[2016-11-18] MEDS: LISINOPRIL 20 MG TABLET (FP) GT SCH (10:54)
[2016-11-18] MEDS: RANITIDINE HCL 150 MG/10 ML UNIT-DOSE CUP PO SCH ×2 (10:55→21:34)
[2016-11-18] MEDS: INSULIN DETEMIR 100 UNITS/ML MDV SQ SCH (21:34)
[2016-11-19] MEDS: INSULIN SLIDING SCALE (NOVOLOG) 1 VIAL SQ SCH ×4 (06:18→21:42)
[2016-11-19] MEDS: LACTOBACILLUS ACIDOPHILUS 1 EACH TAB (FP) PO SCH (11:07)
[2016-11-19] MEDS: LISINOPRIL 20 MG TABLET (FP) GT SCH (11:07)
[2016-11-19] MEDS: RANITIDINE HCL 150 MG/10 ML UNIT-DOSE CUP PO SCH ×2 (11:07→21:43)
[2016-11-19] MEDS: METOPROLOL TARTRATE 50 MG TABLET (FP) GT SCH ×2 (11:08→21:43)
[2016-11-19] MEDS: amLODIPine BESYLATE 10 MG TABLET (FP) GT SCH (11:08)
[2016-11-19] MEDS: MULTIVITAMINS LIQUID THERAPEUTIC 118 ML BOT GT SCH (11:08)
[2016-11-19] MEDS: SIMETHICONE 40 MG/0.6 ML BOTTLE PEG SCH (11:08)
[2016-11-19] MEDS: AMINO ACIDS/PROTEIN HYDROLYS SUGAR-FREE 30 ML PACKET PO SCH (11:08)
--- NOTE | 2016-11-19 13:41 | PN ---
Progress Note (short form) - Note Progress Note: Subjective: The patient was seen and examined at the bedside, non-verbal. Tolerating room air well Current Medications Generic Name Dose Route Start Last Admin Trade Name Freq PRN Reason Stop Dose Admin Acetaminophen 650 mg 05/26/16 14:23 11/12/16 21:41 Tylenol Oral Solution - GT 650 mg Q4H PRN Administration FEVER Amino Acids 30 ml 06/28/16 10:00 11/19/16 11:08 Prostat Sugar-Free Packet - PO 30 ml DAILY KWAKU Administration Amlodipine Besylate 10 mg 12/30/15 10:00 11/19/16 11:08 Norvasc - GT 10 mg DAILY KWAKU Administration Guaifenesin 10 ml 12/29/15 10:43 11/16/16 11:59 Robitussin Dm - PO 10 ml Q6H PRN Administration COUGH Insulin Aspart 1 vial 09/17/16 16:30 11/19/16 12:22 Novolog Vial Sliding Scale - SQ Not Given ACHS KWAKU Protocol Insulin Detemir 20 units 09/21/16 13:25 11/18/16 21:34 Levemir Vial SQ 20 units HS KWAKU Administration Lactobacillus Acidophilus 1 tab 12/30/15 10:00 11/19/16 11:07 Bacid - PO 1 tab DAILY KWAKU Administration Lisinopril 40 mg 12/30/15 10:00 11/19/16 11:07 Prinivil GT 40 mg DAILY KWAKU Administration Metoprolol Tartrate 150 mg 12/29/15 22:00 11/19/16 11:08 Lopressor - GT 150 mg BID KWAKU Administration Metoprolol Tartrate 5 mg 12/29/15 10:43 Lopressor Injection - IVPB Q6H PRN HYPERTENSION Multi-Ingredient Lotion 1 applic 11/07/16 11:55 Eucerin (Large Jar) - TP BID PRN DRY SKIN Multivitamins 5 ml 10/16/16 16:30 11/19/16 11:08 Thera-Plus - GT 5 ml DAILY KWAKU Administration Ranitidine HCl 150 mg 08/27/16 12:15 11/19/16 11:07 Zantac Oral Solution - PO 150 mg BID KWAKU Administration Scopolamine HBr 1 patch 05/20/16 15:45 11/16/16 15:52 Transderm-Scop - TD 1 patch Q72H KWAKU Administration Simethicone 40 mg 08/25/16 10:00 11/19/16 11:08 Mylicon Liquid - PEG 40 mg DAILY KWAKU Administration Objective: Vital Signs Period Temp Pulse Resp BP Sys/Santiago Pulse Ox Last 24 Hr 98.3 F-98.7 F 58-76 18-20 115-150/73-88 98 Physical Exam: General: No acute distress HEENT: Tracheal stoma Neuro: Opens eyes to verbal stimuli Pulm: CTA anteriorly CV: RRR, S1S2 Abd: Soft, non-distended. Normoactive bowel sounds. Peg tube c/d/i Ext: Warm, well-perfused. 2+ DP/PT bilaterally CBCD WBC 8.3 K/mm3 (4.0-10.0) 11/14/16 06:00 RBC 4.10 M/mm3 (4.00-5.60) 11/14/16 06:00 Hgb 12.4 GM/dL (11.7-16.9) 11/14/16 06:00 Hct 36.9 % (35.4-49) 11/14/16 06:00 MCV 89.8 fl (80-96) 11/14/16 06:00 MCHC 33.6 g/dl (32.0-35.9) 11/14/16 06:00 RDW 15.8 % (11.9-15.9) 11/14/16 06:00 Plt Count 191 K/MM3 (134-434) 11/14/16 06:00 MPV 10.1 fl (7.5-11.1) 11/14/16 06:00 CMP Sodium 144 mmol/L (136-145) 11/14/16 06:00 Potassium 3.8 mmol/L (3.5-5.1) 11/14/16 06:00 Chloride 104 mmol/L (98-107) 11/14/16 06:00 Carbon Dioxide 31 mmol/L (21-32) 11/14/16 06:00 Anion Gap 9 (8-16) 11/14/16 06:00 BUN 24 mg/dL (7-18) H 11/14/16 06:00 Creatinine 0.9 mg/dL (0.7-1.3) D 11/14/16 06:00 Creat Clearance w eGFR > 60 (>60) 11/14/16 06:00 Random Glucose 131 mg/dL (74-106) H 11/14/16 06:00 Calcium 9.8 mg/dL (8.5-10.1) 11/14/16 06:00 Total Bilirubin 0.4 mg/dL (0.2-1.0) D 11/14/16 06:00 AST 28 U/L (15-37) 11/14/16 06:00 ALT 54 U/L (12-78) 11/14/16 06:00 Alkaline Phosphatase 141 U/L (45-117) H 11/14/16 06:00 Total Protein 8.3 g/dl (6.4-8.2) H 11/14/16 06:00 Albumin 3.7 g/dl (3.4-5.0) 11/14/16 06:00 CARDIAC ENZYMES Creatine Kinase 62 IU/L (38-174) 06/28/15 09:35 Troponin I 0.07 ng/ml (0.03-0.5) D 07/09/15 05:00 Assessment: 75 year old male with PMHx of HTN, IDDM, inguinal hernia who presented to the ED with diverticular bleed s/p Righ hemicolectomy with 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 Plan: 1. Anoxic brain injury s/p brainstem CVAs - Mental status unchanged 2. 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 Respiratory failure secondary to anoxic brain injury - Cont O2 via room air, NC prn - Trach removed 09/09/16 - Duonebs PRN 4. HTN - Continue lisinopril, amlodipine, lopressor 5. Multiple pressure ulcers - Turn and position q2h - Local wound care 6. IDDM - Continue Levemir at 20u sq qhs - ISS BGM ACHS 7. F/E/N: - 70 ml/hr Glucerna 1.5, 65 ml/hr water flushes - Prostat daily - Continue Zantac bid 8. Prophylaxis: - SCDs bilaterally - No chemical anticoagulation 2/2 spontaneous gluteal bleed and severe GI bleed - Functional quadriplegia CODE STATUS: DNR Visit type - Emergency Visit Emergency Visit: Yes ED Registration Date: 06/27/15 Care time: The patient presented to the Emergency Department on the above date and was hospitalized for further evaluation of their emergent condition. - New Patient This patient is new to me today: No - Critical Care Critical Care patient: No
[2016-11-19] MEDS: SCOPOLAMINE HYDROBROMIDE 1 PATCH PATCH.TD72 TD SCH (15:29)
[2016-11-19] MEDS: INSULIN DETEMIR 100 UNITS/ML MDV SQ SCH (21:25)
[2016-11-20] MEDS: INSULIN SLIDING SCALE (NOVOLOG) 1 VIAL SQ SCH ×4 (06:09→22:25)
[2016-11-20 07:40] LABS: MCH 30.5 pg (25.7-33.7); MCHC 34.3 g/dl (32.0-35.9); MEAN CELL VOLUME 88.8 fl (80-96); MEAN PLT VOLUME 10.2 fl (7.5-11.1); PLATELET COUNT 154 K/MM3 (134-434); RDW 15.2 % (11.9-15.9); WHITE BLOOD COUNT 7.8 K/mm3 (4.0-10.0)
[2016-11-20 08:21] LABS: ALBUMIN 3.5 g/dl (3.4-5.0); ALK PHOS 163 U/L (45-117); ANION GAP 9 (8-16); BILIRUBIN,TOTAL 0.3 mg/dL (0.2-1.0); CO2 27 mmol/L (21-32); CREATININE 0.8 mg/dL (0.7-1.3); GLUCOSE,RANDOM 110 mg/dL (74-106); SGOT/AST 22 U/L (15-37); SGPT/ALT 43 U/L (12-78)
[2016-11-20] MEDS: amLODIPine BESYLATE 10 MG TABLET (FP) GT SCH (10:00)
[2016-11-20] MEDS: LACTOBACILLUS ACIDOPHILUS 1 EACH TAB (FP) PO SCH (10:00)
[2016-11-20] MEDS: LISINOPRIL 20 MG TABLET (FP) GT SCH (10:00)
[2016-11-20] MEDS: SIMETHICONE 40 MG/0.6 ML BOTTLE PEG SCH (10:00)
[2016-11-20] MEDS: MULTIVITAMINS LIQUID THERAPEUTIC 118 ML BOT GT SCH (10:00)
[2016-11-20] MEDS: AMINO ACIDS/PROTEIN HYDROLYS SUGAR-FREE 30 ML PACKET PO SCH (10:00)
[2016-11-20] MEDS: METOPROLOL TARTRATE 50 MG TABLET (FP) GT SCH ×2 (10:00→22:20)
[2016-11-20] MEDS: RANITIDINE HCL 150 MG/10 ML UNIT-DOSE CUP PO SCH ×2 (10:00→22:20)
--- NOTE | 2016-11-20 12:09 | PN ---
Physical Exam: SUBJECTIVE: Patient seen and examined OBJECTIVE: Vital Signs Period Temp Pulse Resp BP Sys/Santiago Pulse Ox Last 24 Hr 98.2 F-98.6 F 67-82 20-20 138-144/82-87 GENERAL/NEURO: Eyes open. Non-verbal. Does not follow commands. Non-purposeful movement. HEAD: Normal with no signs of trauma. NECK: Tracheostomy site closed, well-healed. EYES: PERRL, extraocular movements intact, sclera anicteric, conjunctiva clear. No ptosis. ENT: Ears normal, nares patent, oropharynx clear without exudates, moist mucous membranes. LUNGS: CTA HEART: Regular rate and rhythm, S1, S2 without murmur, rub or gallop. ABDOMEN: Soft, nontender, nondistended, normoactive bowel sounds, no guarding, no rebound, no hepatosplenomegaly, no masses. PEG tube in situ, skin clean, dry , no sign of infection : Condom cath to castellano bag draining clear yellow urine EXTREMITIES: 2+ pulses, warm, well-perfused, no edema. SKIN: Healed stage III right and left buttock pressure ulcers Laboratory Results - last 24 hr 11/19/16 11/19/16 11/19/16 11:46 17:03 20:25 WBC RBC Hgb Hct MCV MCHC RDW Plt Count MPV Sodium Potassium Chloride Carbon Dioxide Anion Gap BUN Creatinine Creat Clearance w eGFR POC Glucometer 145 150 173 Random Glucose Calcium Total Bilirubin AST ALT Alkaline Phosphatase Total Protein Albumin 11/20/16 11/20/16 11/20/16 05:37 06:20 06:20 WBC 7.8 RBC 4.15 Hgb 12.6 Hct 36.8 MCV 88.8 MCHC 34.3 RDW 15.2 Plt Count 154 MPV 10.2 Sodium 139 Potassium 3.6 Chloride 103 Carbon Dioxide 27 Anion Gap 9 BUN 22 H Creatinine 0.8 Creat Clearance w eGFR > 60 POC Glucometer 134 Random Glucose 110 H Calcium 10.0 Total Bilirubin 0.3 D AST 22 D ALT 43 D Alkaline Phosphatase 163 H Total Protein 8.0 Albumin 3.5 Current Medications Generic Name Dose Route Start Last Admin Trade Name Freq PRN Reason Stop Dose Admin Acetaminophen 650 mg 05/26/16 14:23 11/12/16 21:41 Tylenol Oral Solution - GT 650 mg Q4H PRN Administration FEVER Amino Acids 30 ml 06/28/16 10:00 11/20/16 10:00 Prostat Sugar-Free Packet - PO 30 ml DAILY KWAKU Administration Amlodipine Besylate 10 mg 12/30/15 10:00 11/20/16 10:00 Norvasc - GT 10 mg DAILY KWAKU Administration Guaifenesin 10 ml 12/29/15 10:43 11/16/16 11:59 Robitussin Dm - PO 10 ml Q6H PRN Administration COUGH Insulin Aspart 1 vial 09/17/16 16:30 11/20/16 11:00 Novolog Vial Sliding Scale - SQ 4 units ACHS KWAKU Administration Protocol Insulin Detemir 20 units 09/21/16 13:25 11/19/16 21:25 Levemir Vial SQ 20 units HS KWAKU Administration Lactobacillus Acidophilus 1 tab 12/30/15 10:00 11/20/16 10:00 Bacid - PO 1 tab DAILY KWAKU Administration Lisinopril 40 mg 12/30/15 10:00 11/20/16 10:00 Prinivil GT 40 mg DAILY KWAKU Administration Metoprolol Tartrate 150 mg 12/29/15 22:00 11/20/16 10:00 Lopressor - GT 150 mg BID KWAKU Administration Metoprolol Tartrate 5 mg 12/29/15 10:43 Lopressor Injection - IVPB Q6H PRN HYPERTENSION Multi-Ingredient Lotion 1 applic 11/07/16 11:55 Eucerin (Large Jar) - TP BID PRN DRY SKIN Multivitamins 5 ml 10/16/16 16:30 11/20/16 10:00 Thera-Plus - GT 5 ml DAILY KWAKU Administration Ranitidine HCl 150 mg 08/27/16 12:15 11/20/16 10:00 Zantac Oral Solution - PO 150 mg BID KWAKU Administration Scopolamine HBr 1 patch 05/20/16 15:45 11/19/16 15:29 Transderm-Scop - TD 1 patch Q72H KWAKU Administration Simethicone 40 mg 08/25/16 10:00 11/20/16 10:00 Mylicon Liquid - PEG 40 mg DAILY KWAKU Administration ASSESSMENT/PLAN 75 year old male with PMH of HTN, IDDM, inguinal hernia who presented to the ED with diverticular bleed s/p right hemicolectomy. 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 Central sleep apnea --seen and evaluated by pulmonary, breathing pauses are due to central apneas secondary to anoxic brain injury; no observed evidence of GRANT --no desaturation --O2 as needed Anoxic brain injury s/p brainstem CVAs --mental status unchanged Respiratory failure secondary to anoxic brain injury, resolved --on room air, nasal cannula PRN --trach removed 09/09/16 --duonebs PRN Hydronephrosis, chronic --renal function stable Right inguinal hernia --incidental finding on CT --no surgical intervention Functional quadriplegia secondary to anoxic brain injury --inability to feed, turn, or toilet independently; requires complete care Hypertension --BP well-controlled --continue lisinopril, metoprolol, amlodipine Stage III pressure ulcers buttocks, healed IDDM --Levemir --Novolog sliding scale coverage --fingersticks F/E/N Fluids/Nutrition: Diet: TF Glucerna 1.5 @ 70 ml/hr with 65 ml/hr water flushes and Prostat SF 1x/day. Electrolytes: replete as indicated DVT prophylaxis --SCDs bilaterally --no chemical anticoagulation 2/2 spontaneous gluteal bleed and severe GI bleed Dispo: continues to require inpatient care. DNR. Visit type - Emergency Visit Emergency Visit: Yes ED Registration Date: 06/27/15 Care time: The patient presented to the Emergency Department on the above date and was hospitalized for further evaluation of their emergent condition. - New Patient This patient is new to me today: No - Critical Care Critical Care patient: No
[2016-11-20] MEDS: INSULIN DETEMIR 100 UNITS/ML MDV SQ SCH (22:24)
[2016-11-21] MEDS: INSULIN SLIDING SCALE (NOVOLOG) 1 VIAL SQ SCH ×4 (06:38→22:30)
[2016-11-21] MEDS: LACTOBACILLUS ACIDOPHILUS 1 EACH TAB (FP) PO SCH (10:56)
[2016-11-21] MEDS: RANITIDINE HCL 150 MG/10 ML UNIT-DOSE CUP PO SCH ×2 (10:56→22:30)
[2016-11-21] MEDS: amLODIPine BESYLATE 10 MG TABLET (FP) GT SCH (10:56)
[2016-11-21] MEDS: AMINO ACIDS/PROTEIN HYDROLYS SUGAR-FREE 30 ML PACKET PO SCH (10:56)
[2016-11-21] MEDS: LISINOPRIL 20 MG TABLET (FP) GT SCH (10:56)
[2016-11-21] MEDS: METOPROLOL TARTRATE 50 MG TABLET (FP) GT SCH ×2 (10:57→22:29)
[2016-11-21] MEDS: SIMETHICONE 40 MG/0.6 ML BOTTLE PEG SCH (10:57)
[2016-11-21] MEDS: MULTIVITAMINS LIQUID THERAPEUTIC 118 ML BOT GT SCH (17:44)
--- NOTE | 2016-11-21 20:01 | PN ---
Physical Exam: SUBJECTIVE: Patient seen and examined OBJECTIVE: Vital Signs Period Temp Pulse Resp BP Sys/Santiago Pulse Ox Last 24 Hr 98.0 F-98.7 F 54-89 16-18 141-157/69-101 95-95 GENERAL/NEURO: Eyes open. Non-verbal. Does not follow commands. Non-purposeful movement. HEAD: Normal with no signs of trauma. NECK: Tracheostomy site closed, well-healed. EYES: PERRL, extraocular movements intact, sclera anicteric, conjunctiva clear. No ptosis. ENT: Ears normal, nares patent, oropharynx clear without exudates, moist mucous membranes. LUNGS: CTA HEART: Regular rate and rhythm, S1, S2 without murmur, rub or gallop. ABDOMEN: Soft, nontender, nondistended, normoactive bowel sounds, no guarding, no rebound, no hepatosplenomegaly, no masses. PEG tube in situ, skin clean, dry , no sign of infection : Condom cath to castellano bag draining clear yellow urine EXTREMITIES: 2+ pulses, warm, well-perfused, no edema. SKIN: Healed stage III right and left buttock pressure ulcers CBCD WBC 7.8 K/mm3 (4.0-10.0) 11/20/16 06:20 RBC 4.15 M/mm3 (4.00-5.60) 11/20/16 06:20 Hgb 12.6 GM/dL (11.7-16.9) 11/20/16 06:20 Hct 36.8 % (35.4-49) 11/20/16 06:20 MCV 88.8 fl (80-96) 11/20/16 06:20 MCHC 34.3 g/dl (32.0-35.9) 11/20/16 06:20 RDW 15.2 % (11.9-15.9) 11/20/16 06:20 Plt Count 154 K/MM3 (134-434) 11/20/16 06:20 MPV 10.2 fl (7.5-11.1) 11/20/16 06:20 CMP Sodium 139 mmol/L (136-145) 11/20/16 06:20 Potassium 3.6 mmol/L (3.5-5.1) 11/20/16 06:20 Chloride 103 mmol/L (98-107) 11/20/16 06:20 Carbon Dioxide 27 mmol/L (21-32) 11/20/16 06:20 Anion Gap 9 (8-16) 11/20/16 06:20 BUN 22 mg/dL (7-18) H 11/20/16 06:20 Creatinine 0.8 mg/dL (0.7-1.3) 11/20/16 06:20 Creat Clearance w eGFR > 60 (>60) 11/20/16 06:20 Calcium 10.0 mg/dL (8.5-10.1) 11/20/16 06:20 Total Bilirubin 0.3 mg/dL (0.2-1.0) D 11/20/16 06:20 AST 22 U/L (15-37) D 11/20/16 06:20 ALT 43 U/L (12-78) D 11/20/16 06:20 Alkaline Phosphatase 163 U/L (45-117) H 11/20/16 06:20 Total Protein 8.0 g/dl (6.4-8.2) 11/20/16 06:20 Albumin 3.5 g/dl (3.4-5.0) 11/20/16 06:20 Active Medications Generic Name Dose Route Start Last Admin Trade Name Freq PRN Reason Stop Dose Admin Acetaminophen 650 mg 05/26/16 14:23 11/12/16 21:41 Tylenol Oral Solution - GT 650 mg Q4H PRN Administration FEVER Amino Acids 30 ml 06/28/16 10:00 11/21/16 10:56 Prostat Sugar-Free Packet - PO 30 ml DAILY KWAKU Administration Amlodipine Besylate 10 mg 12/30/15 10:00 11/21/16 10:56 Norvasc - GT 10 mg DAILY KWAKU Administration Guaifenesin 10 ml 12/29/15 10:43 11/16/16 11:59 Robitussin Dm - PO 10 ml Q6H PRN Administration COUGH Insulin Aspart 1 vial 09/17/16 16:30 11/21/16 17:46 Novolog Vial Sliding Scale - SQ 4 units ACHS KWAKU Administration Protocol Insulin Detemir 20 units 09/21/16 13:25 11/20/16 22:24 Levemir Vial SQ 20 units HS KWAKU Administration Lactobacillus Acidophilus 1 tab 12/30/15 10:00 11/21/16 10:56 Bacid - PO 1 tab DAILY KWAKU Administration Lisinopril 40 mg 12/30/15 10:00 11/21/16 10:56 Prinivil GT 40 mg DAILY KWAKU Administration Metoprolol Tartrate 150 mg 12/29/15 22:00 11/21/16 10:57 Lopressor - GT 150 mg BID KWAKU Administration Metoprolol Tartrate 5 mg 12/29/15 10:43 Lopressor Injection - IVPB Q6H PRN HYPERTENSION Multi-Ingredient Lotion 1 applic 11/07/16 11:55 Eucerin (Large Jar) - TP BID PRN DRY SKIN Multivitamins 5 ml 10/16/16 16:30 11/21/16 17:44 Thera-Plus - GT Not Given DAILY KWAKU Ranitidine HCl 150 mg 08/27/16 12:15 11/21/16 10:56 Zantac Oral Solution - PO 150 mg BID KWAKU Administration Scopolamine HBr 1 patch 05/20/16 15:45 11/19/16 15:29 Transderm-Scop - TD 1 patch Q72H KWAKU Administration Simethicone 40 mg 08/25/16 10:00 11/21/16 10:57 Mylicon Liquid - PEG 40 mg DAILY KWAKU Administration ASSESSMENT/PLAN 75 year old male with PMH of HTN, IDDM, inguinal hernia who presented to the ED with diverticular bleed s/p right hemicolectomy. 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 Central sleep apnea --seen and evaluated by pulmonary, breathing pauses are due to central apneas secondary to anoxic brain injury; no observed evidence of GRANT --no desaturation --O2 as needed Anoxic brain injury s/p brainstem CVAs --mental status unchanged Respiratory failure secondary to anoxic brain injury, resolved --on room air, nasal cannula PRN --trach removed 09/09/16 --duonebs PRN Hydronephrosis, chronic --renal function stable Right inguinal hernia --incidental finding on CT --no surgical intervention Functional quadriplegia secondary to anoxic brain injury --inability to feed, turn, or toilet independently; requires complete care Hypertension --BP well-controlled --continue lisinopril, metoprolol, amlodipine Stage III pressure ulcers buttocks, healed IDDM --Levemir --Novolog sliding scale coverage --fingersticks F/E/N Fluids/Nutrition: Diet: TF Glucerna 1.5 @ 70 ml/hr with 65 ml/hr water flushes and Prostat SF 1x/day. Electrolytes: replete as indicated DVT prophylaxis --SCDs bilaterally --no chemical anticoagulation 2/2 spontaneous gluteal bleed and severe GI bleed Dispo: continues to require inpatient care. DNR. Visit type - Emergency Visit Emergency Visit: Yes ED Registration Date: 06/27/15 Care time: The patient presented to the Emergency Department on the above date and was hospitalized for further evaluation of their emergent condition. - New Patient This patient is new to me today: No - Critical Care Critical Care patient: No
[2016-11-21] MEDS: INSULIN DETEMIR 100 UNITS/ML MDV SQ SCH (22:29)
[2016-11-22] MEDS: INSULIN SLIDING SCALE (NOVOLOG) 1 VIAL SQ SCH ×4 (06:33→23:16)
[2016-11-22] MEDS: LISINOPRIL 20 MG TABLET (FP) GT SCH (11:00)
[2016-11-22] MEDS: METOPROLOL TARTRATE 50 MG TABLET (FP) GT SCH ×2 (11:00→23:07)
[2016-11-22] MEDS: AMINO ACIDS/PROTEIN HYDROLYS SUGAR-FREE 30 ML PACKET PO SCH (11:00)
[2016-11-22] MEDS: SIMETHICONE 40 MG/0.6 ML BOTTLE PEG SCH (11:00)
[2016-11-22] MEDS: amLODIPine BESYLATE 10 MG TABLET (FP) GT SCH (11:00)
[2016-11-22] MEDS: RANITIDINE HCL 150 MG/10 ML UNIT-DOSE CUP PO SCH ×2 (11:00→23:07)
[2016-11-22] MEDS: LACTOBACILLUS ACIDOPHILUS 1 EACH TAB (FP) PO SCH (11:00)
[2016-11-22] MEDS: MULTIVITAMINS LIQUID THERAPEUTIC 118 ML BOT GT SCH (11:01)
--- NOTE | 2016-11-22 13:12 | PN ---
Physical Exam: SUBJECTIVE: Patient seen and examined OBJECTIVE: Vital Signs Period Temp Pulse Resp BP Sys/Santiago Pulse Ox Last 24 Hr 98.2 F-98.7 F 60-85 18-18 141-160/69-101 96 GENERAL/NEURO: Eyes open. Non-verbal. Does not follow commands. Non-purposeful movement. HEAD: Normal with no signs of trauma. NECK: Tracheostomy site closed, well-healed. EYES: PERRL, extraocular movements intact, sclera anicteric, conjunctiva clear. No ptosis. ENT: Ears normal, nares patent, oropharynx clear without exudates, moist mucous membranes. LUNGS: CTA HEART: Regular rate and rhythm, S1, S2 without murmur, rub or gallop. ABDOMEN: Soft, nontender, nondistended, normoactive bowel sounds, no guarding, no rebound, no hepatosplenomegaly, no masses. PEG tube in situ, skin clean, dry , no sign of infection : Condom cath to castellano bag draining clear yellow urine EXTREMITIES: 2+ pulses, warm, well-perfused, no edema. SKIN: Healed stage III right and left buttock pressure ulcers CBCD WBC 7.8 K/mm3 (4.0-10.0) 11/20/16 06:20 RBC 4.15 M/mm3 (4.00-5.60) 11/20/16 06:20 Hgb 12.6 GM/dL (11.7-16.9) 11/20/16 06:20 Hct 36.8 % (35.4-49) 11/20/16 06:20 MCV 88.8 fl (80-96) 11/20/16 06:20 MCHC 34.3 g/dl (32.0-35.9) 11/20/16 06:20 RDW 15.2 % (11.9-15.9) 11/20/16 06:20 Plt Count 154 K/MM3 (134-434) 11/20/16 06:20 MPV 10.2 fl (7.5-11.1) 11/20/16 06:20 CMP Sodium 139 mmol/L (136-145) 11/20/16 06:20 Potassium 3.6 mmol/L (3.5-5.1) 11/20/16 06:20 Chloride 103 mmol/L (98-107) 11/20/16 06:20 Carbon Dioxide 27 mmol/L (21-32) 11/20/16 06:20 Anion Gap 9 (8-16) 11/20/16 06:20 BUN 22 mg/dL (7-18) H 11/20/16 06:20 Creatinine 0.8 mg/dL (0.7-1.3) 11/20/16 06:20 Creat Clearance w eGFR > 60 (>60) 11/20/16 06:20 Calcium 10.0 mg/dL (8.5-10.1) 11/20/16 06:20 Total Bilirubin 0.3 mg/dL (0.2-1.0) D 11/20/16 06:20 AST 22 U/L (15-37) D 11/20/16 06:20 ALT 43 U/L (12-78) D 11/20/16 06:20 Alkaline Phosphatase 163 U/L (45-117) H 11/20/16 06:20 Total Protein 8.0 g/dl (6.4-8.2) 11/20/16 06:20 Albumin 3.5 g/dl (3.4-5.0) 11/20/16 06:20 Laboratory Results - last 24 hr 11/21/16 11/21/16 11/22/16 17:19 22:10 05:27 POC Glucometer 169 151 154 11/22/16 12:13 POC Glucometer 144 Active Medications Generic Name Dose Route Start Last Admin Trade Name Freq PRN Reason Stop Dose Admin Acetaminophen 650 mg 05/26/16 14:23 11/12/16 21:41 Tylenol Oral Solution - GT 650 mg Q4H PRN Administration FEVER Amino Acids 30 ml 06/28/16 10:00 11/22/16 11:00 Prostat Sugar-Free Packet - PO 30 ml DAILY KWAKU Administration Amlodipine Besylate 10 mg 12/30/15 10:00 11/22/16 11:00 Norvasc - GT 10 mg DAILY KWAKU Administration Guaifenesin 10 ml 12/29/15 10:43 11/16/16 11:59 Robitussin Dm - PO 10 ml Q6H PRN Administration COUGH Insulin Aspart 1 vial 09/17/16 16:30 11/22/16 12:22 Novolog Vial Sliding Scale - SQ Not Given ACHS [facility] Protocol Insulin Detemir 20 units 09/21/16 13:25 11/21/16 22:29 Levemir Vial SQ 20 units HS KWAKU Administration Lactobacillus Acidophilus 1 tab 12/30/15 10:00 11/22/16 11:00 Bacid - PO 1 tab DAILY KWAKU Administration Lisinopril 40 mg 12/30/15 10:00 11/22/16 11:00 Prinivil GT 40 mg DAILY KWAKU Administration Metoprolol Tartrate 150 mg 12/29/15 22:00 11/22/16 11:00 Lopressor - GT 150 mg BID KWAKU Administration Metoprolol Tartrate 5 mg 12/29/15 10:43 Lopressor Injection - IVPB Q6H PRN HYPERTENSION Multi-Ingredient Lotion 1 applic 11/07/16 11:55 Eucerin (Large Jar) - TP BID PRN DRY SKIN Multivitamins 5 ml 10/16/16 16:30 11/22/16 11:01 Thera-Plus - GT 5 ml DAILY KWAKU Administration Ranitidine HCl 150 mg 08/27/16 12:15 11/22/16 11:00 Zantac Oral Solution - PO 150 mg BID KWAKU Administration Scopolamine HBr 1 patch 05/20/16 15:45 11/19/16 15:29 Transderm-Scop - TD 1 patch Q72H KWAKU Administration Simethicone 40 mg 08/25/16 10:00 11/22/16 11:00 Mylicon Liquid - PEG 40 mg DAILY KWAKU Administration ASSESSMENT/PLAN: 75 year old male with PMH of HTN, IDDM, inguinal hernia who presented to the ED with diverticular bleed s/p right hemicolectomy. 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 Central sleep apnea --seen and evaluated by pulmonary, breathing pauses are due to central apneas secondary to anoxic brain injury; no observed evidence of GRANT --no desaturation --O2 as needed Anoxic brain injury s/p brainstem CVAs --mental status unchanged Respiratory failure secondary to anoxic brain injury, resolved --on room air, nasal cannula PRN --trach removed 09/09/16 --duonebs PRN Hydronephrosis, chronic --renal function stable Right inguinal hernia --incidental finding on CT --no surgical intervention Functional quadriplegia secondary to anoxic brain injury --inability to feed, turn, or toilet independently; requires complete care Hypertension --BP well-controlled --continue lisinopril, metoprolol, amlodipine Stage III pressure ulcers buttocks, healed IDDM --Levemir --Novolog sliding scale coverage --fingersticks F/E/N Fluids/Nutrition: Diet: TF Glucerna 1.5 @ 70 ml/hr with 65 ml/hr water flushes and Prostat SF 1x/day. Electrolytes: replete as indicated DVT prophylaxis --SCDs bilaterally --no chemical anticoagulation 2/2 spontaneous gluteal bleed and severe GI bleed Dispo: continues to require inpatient care. DNR. Visit type - Emergency Visit Emergency Visit: Yes ED Registration Date: 06/27/15 Care time: The patient presented to the Emergency Department on the above date and was hospitalized for further evaluation of their emergent condition. - New Patient This patient is new to me today: No - Critical Care Critical Care patient: No
[2016-11-22] MEDS: SCOPOLAMINE HYDROBROMIDE 1 PATCH PATCH.TD72 TD SCH (18:16)
[2016-11-22] MEDS: INSULIN DETEMIR 100 UNITS/ML MDV SQ SCH (23:07)
[2016-11-23] MEDS: INSULIN SLIDING SCALE (NOVOLOG) 1 VIAL SQ SCH ×4 (06:38→23:00)
[2016-11-23] MEDS: amLODIPine BESYLATE 10 MG TABLET (FP) GT SCH (10:00)
[2016-11-23] MEDS: LACTOBACILLUS ACIDOPHILUS 1 EACH TAB (FP) PO SCH (10:00)
[2016-11-23] MEDS: AMINO ACIDS/PROTEIN HYDROLYS SUGAR-FREE 30 ML PACKET PO SCH (10:00)
[2016-11-23] MEDS: MULTIVITAMINS LIQUID THERAPEUTIC 118 ML BOT GT SCH (10:00)
[2016-11-23] MEDS: LISINOPRIL 20 MG TABLET (FP) GT SCH (10:00)
[2016-11-23] MEDS: METOPROLOL TARTRATE 50 MG TABLET (FP) GT SCH ×2 (10:00→23:00)
[2016-11-23] MEDS: RANITIDINE HCL 150 MG/10 ML UNIT-DOSE CUP PO SCH ×2 (10:00→23:00)
[2016-11-23] MEDS: SIMETHICONE 40 MG/0.6 ML BOTTLE PEG SCH (10:05)
--- NOTE | 2016-11-23 10:39 | PN ---
Physical Exam: SUBJECTIVE: Patient seen and examined. Appears at baseline, no pain behaviours. He opens his eyes intermittently. No overnight events. Noted to be hypertensive today. OBJECTIVE: GENERAL: appears comfortable at rest, Tolerating feeds HEAD: Normal with no signs of trauma NECK: Trach removed, site is c/d/i, no redness or drainage noted. LUNGS: Scattered rhonchi on anterior lung baeza HEART: Regular rate and rhythm, heart rate 80 - 90s ABDOMEN: peg tube LUQ - on Jevity feeds with water flushes NEUROLOGICAL: at baseline, opens eyes intermittently SKIN: Healed stage 3 on sacrum Vital Signs Period Temp Pulse Resp BP Sys/Santiago Pulse Ox Last 24 Hr 97.5 F-98.2 F 70-85 18-20 143-167/83-94 96 Laboratory Results - last 24 hr 11/22/16 11/22/16 11/22/16 12:13 17:22 23:09 POC Glucometer 144 136 170 11/23/16 06:36 POC Glucometer 175 Active Medications Generic Name Dose Route Start Last Admin Trade Name Freq PRN Reason Stop Dose Admin Acetaminophen 650 mg 05/26/16 14:23 11/12/16 21:41 Tylenol Oral Solution - GT 650 mg Q4H PRN Administration FEVER Amino Acids 30 ml 06/28/16 10:00 11/22/16 11:00 Prostat Sugar-Free Packet - PO 30 ml DAILY KWAKU Administration Amlodipine Besylate 10 mg 12/30/15 10:00 11/22/16 11:00 Norvasc - GT 10 mg DAILY KWAKU Administration Guaifenesin 10 ml 12/29/15 10:43 11/16/16 11:59 Robitussin Dm - PO 10 ml Q6H PRN Administration COUGH Insulin Aspart 1 vial 09/17/16 16:30 11/23/16 06:38 Novolog Vial Sliding Scale - SQ 4 units ACHS KWAKU Administration Protocol Insulin Detemir 20 units 09/21/16 13:25 11/22/16 23:07 Levemir Vial SQ 20 units HS KWAKU Administration Lactobacillus Acidophilus 1 tab 12/30/15 10:00 11/22/16 11:00 Bacid - PO 1 tab DAILY KWAKU Administration Lisinopril 40 mg 12/30/15 10:00 11/22/16 11:00 Prinivil GT 40 mg DAILY KWAKU Administration Metoprolol Tartrate 150 mg 12/29/15 22:00 11/22/16 23:07 Lopressor - GT 150 mg BID KWAKU Administration Metoprolol Tartrate 5 mg 12/29/15 10:43 Lopressor Injection - IVPB Q6H PRN HYPERTENSION Multi-Ingredient Lotion 1 applic 11/07/16 11:55 Eucerin (Large Jar) - TP BID PRN DRY SKIN Multivitamins 5 ml 10/16/16 16:30 11/22/16 11:01 Thera-Plus - GT 5 ml DAILY KWAKU Administration Ranitidine HCl 150 mg 08/27/16 12:15 11/22/16 23:07 Zantac Oral Solution - PO 150 mg BID KWAKU Administration Scopolamine HBr 1 patch 05/20/16 15:45 11/22/16 18:16 Transderm-Scop - TD 1 patch Q72H KWAKU Administration Simethicone 40 mg 08/25/16 10:00 11/22/16 11:00 Mylicon Liquid - PEG 40 mg DAILY KWAKU Administration ASSESSMENT/PLAN: Patient is a 76 year old male with a past medical history of IDDM, HTN and inguinal hernia. He presented to the emergency room on 06/27/2015 with a diverticular bleed s/p right hemicolectomy. His hospitalization was further complicated with a CVA with anoxic brain injury. He is s/p trach secondary to respiratory failure. He is currently tolerating room air, no pain behaviours on exam. Neurology: Sleep apnea - likely chronic Assessment/Plan: No breathing pauses observed during exam, oxygen saturations on room air stable Can wear oxygen as needed, but none required at this time Monitor oxygen levels, nasal cannula as needed Anoxic brain injury s/p brainstem CVA - at baseline Assessment/Plan: Mental status at baseline Functional quadriplegia secondary to anoxic brain injury Assessment/Plan: Requires total care, on continuous feeds He is unable to participate in any activities of daily living Requires 24 hour care Pulmonary: Respiratory failure secondary to anoxic brain injury - resolved Assessment/Plan: Tolerating room air. Has respiratory failure secondary to anoxic brain injury. He is on duonebs PRN, Trach collar removed - site open to air, CDI Cardiology: Hypertension - chronic Assessment/Plan: BP slightly elevated today, will monitor Hypertension controlled on Lisinopril 40mg daily, Norvasc 10mg daily and Lopressor 150mg BID Endocrine: Diabetes - chronic Assessment/Plan: Tight glucose coverage, Capillary glucose ac/hs Integumentary: Stage III pressure ulcers buttocks - healed Assessment/Plan: Continue Prostat daily, as he continues to be a high risk Monitor skin integrity, turn and position q2 F.E.N. NPO - all meds through GT Glucerna 70cc/hr with water flushes and 250cc free water BID via GT Prostat for treatment of pressure ulcers Functional quadraplegia Monitor for dehydration Weekly labs Prophylaxis: DVT: SCDs - both legs. No AC: contraindicated secondary to history of GI bleed GI Regimen: Ranitidine BID Bowel regimen: deferred - secondary to soft stools He is bed bound and a total care Code Status: Patient continues to require inpatient hospitalization. Do Not Resuscitate. Visit type - Emergency Visit Emergency Visit: Yes ED Registration Date: 06/27/15 Care time: The patient presented to the Emergency Department on the above date and was hospitalized for further evaluation of their emergent condition. - New Patient This patient is new to me today: No - Critical Care Critical Care patient: No - Discharge Referral Referred to [facility] Med P.C.: No
[2016-11-23] MEDS: INSULIN DETEMIR 100 UNITS/ML MDV SQ SCH (23:00)
[2016-11-24] MEDS: INSULIN SLIDING SCALE (NOVOLOG) 1 VIAL SQ SCH ×3 (06:31→17:14)
--- NOTE | 2016-11-24 10:03 | PN ---
Physical Exam: SUBJECTIVE: Patient seen and examined. He appears at baseline, no acute changes. No overnight events. OBJECTIVE: GENERAL: appears comfortable at rest, Tolerating feeds HEAD: Normal with no signs of trauma NECK: Trach removed, site is c/d/i, no redness or drainage noted. LUNGS: Scattered rhonchi on anterior lung baeza HEART: Regular rate and rhythm, heart rate 80 - 90s ABDOMEN: peg tube LUQ - on Jevity feeds with water flushes NEUROLOGICAL: at baseline, opens eyes intermittently SKIN: Healed stage 3 on sacrum Vital Signs Period Temp Pulse Resp BP Sys/Santiago Pulse Ox Last 24 Hr 97.8 F-98.2 F 76-99 18-24 143-151/80-95 97 Laboratory Results - last 24 hr 11/23/16 11/23/16 11/23/16 11:09 16:53 22:53 POC Glucometer 144 142 159 11/24/16 06:28 POC Glucometer 170 Active Medications Generic Name Dose Route Start Last Admin Trade Name Freq PRN Reason Stop Dose Admin Acetaminophen 650 mg 05/26/16 14:23 11/12/16 21:41 Tylenol Oral Solution - GT 650 mg Q4H PRN Administration FEVER Amino Acids 30 ml 06/28/16 10:00 11/23/16 10:00 Prostat Sugar-Free Packet - PO 30 ml DAILY KWAKU Administration Amlodipine Besylate 10 mg 12/30/15 10:00 11/23/16 10:00 Norvasc - GT 10 mg DAILY KWAKU Administration Guaifenesin 10 ml 12/29/15 10:43 11/16/16 11:59 Robitussin Dm - PO 10 ml Q6H PRN Administration COUGH Insulin Aspart 1 vial 09/17/16 16:30 11/24/16 06:31 Novolog Vial Sliding Scale - SQ 4 units ACHS KWAKU Administration Protocol Insulin Detemir 20 units 09/21/16 13:25 11/23/16 23:00 Levemir Vial SQ 20 units HS KWAKU Administration Lactobacillus Acidophilus 1 tab 12/30/15 10:00 11/23/16 10:00 Bacid - PO 1 tab DAILY KWAKU Administration Lisinopril 40 mg 12/30/15 10:00 11/23/16 10:00 Prinivil GT 40 mg DAILY KWAKU Administration Metoprolol Tartrate 150 mg 12/29/15 22:00 11/23/16 23:00 Lopressor - GT 150 mg BID KWAKU Administration Metoprolol Tartrate 5 mg 12/29/15 10:43 Lopressor Injection - IVPB Q6H PRN HYPERTENSION Multi-Ingredient Lotion 1 applic 11/07/16 11:55 Eucerin (Large Jar) - TP BID PRN DRY SKIN Multivitamins 5 ml 10/16/16 16:30 11/23/16 10:00 Thera-Plus - GT 5 ml DAILY KWAKU Administration Ranitidine HCl 150 mg 08/27/16 12:15 11/23/16 23:00 Zantac Oral Solution - PO 150 mg BID KWAKU Administration Scopolamine HBr 1 patch 05/20/16 15:45 11/22/16 18:16 Transderm-Scop - TD 1 patch Q72H KWAKU Administration Simethicone 40 mg 08/25/16 10:00 11/23/16 10:05 Mylicon Liquid - PEG 40 mg DAILY KWAKU Administration ASSESSMENT/PLAN: Patient is a 76 year old male with a past medical history of IDDM, HTN and inguinal hernia. He presented to the emergency room on 06/27/2015 with a diverticular bleed s/p right hemicolectomy. His hospitalization was further complicated with a CVA with anoxic brain injury. He is s/p trach secondary to respiratory failure. He is currently tolerating room air, no pain behaviours on exam. Neurology: Sleep apnea - likely chronic Assessment/Plan: No breathing pauses observed during exam, oxygen saturations on room air stable Can wear oxygen as needed, but none required at this time Monitor oxygen levels, nasal cannula as needed Anoxic brain injury s/p brainstem CVA - at baseline Assessment/Plan: Mental status at baseline Functional quadriplegia secondary to anoxic brain injury Assessment/Plan: Requires total care, on continuous feeds He is unable to participate in any activities of daily living Requires 24 hour care Pulmonary: Respiratory failure secondary to anoxic brain injury - resolved Assessment/Plan: Tolerating room air. Has respiratory failure secondary to anoxic brain injury. He is on duonebs PRN, Trach collar removed - site open to air, CDI Cardiology: Hypertension - chronic Assessment/Plan: BP slightly elevated yesterday, systolic in the 140s today, has PRN metropolol for HTN, will monitor Hypertension controlled on Lisinopril 40mg daily, Norvasc 10mg daily and Lopressor 150mg BID needs close monitoring of BP Endocrine: Diabetes - chronic Assessment/Plan: Tight glucose coverage, Capillary glucose ac/hs Integumentary: Stage III pressure ulcers buttocks - healed Assessment/Plan: Continue Prostat daily, as he continues to be a high risk Monitor skin integrity, turn and position q2 F.E.N. NPO - all meds through GT Glucerna 70cc/hr with water flushes and 250cc free water BID via GT Prostat for treatment of pressure ulcers Functional quadraplegia Monitor for dehydration Weekly labs Prophylaxis: DVT: SCDs - both legs. No AC: contraindicated secondary to history of GI bleed GI Regimen: Ranitidine BID Bowel regimen: deferred - secondary to soft stools He is bed bound and a total care Code Status: Patient continues to require inpatient hospitalization. Do Not Resuscitate. Visit type - Emergency Visit Emergency Visit: Yes ED Registration Date: 06/27/15 Care time: The patient presented to the Emergency Department on the above date and was hospitalized for further evaluation of their emergent condition. - New Patient This patient is new to me today: No - Critical Care Critical Care patient: No - Discharge Referral Referred to [facility] Med P.C.: No
[2016-11-24] MEDS: RANITIDINE HCL 150 MG/10 ML UNIT-DOSE CUP PO SCH ×2 (11:29→22:50)
[2016-11-24] MEDS: LISINOPRIL 20 MG TABLET (FP) GT SCH (11:29)
[2016-11-24] MEDS: LACTOBACILLUS ACIDOPHILUS 1 EACH TAB (FP) PO SCH (11:29)
[2016-11-24] MEDS: METOPROLOL TARTRATE 50 MG TABLET (FP) GT SCH ×2 (11:29→22:50)
[2016-11-24] MEDS: amLODIPine BESYLATE 10 MG TABLET (FP) GT SCH (11:30)
[2016-11-24] MEDS: AMINO ACIDS/PROTEIN HYDROLYS SUGAR-FREE 30 ML PACKET PO SCH (11:30)
[2016-11-24] MEDS: MULTIVITAMINS LIQUID THERAPEUTIC 118 ML BOT GT SCH (11:30)
[2016-11-24] MEDS: SIMETHICONE 40 MG/0.6 ML BOTTLE PEG SCH (11:31)
[2016-11-24] MEDS: INSULIN DETEMIR 100 UNITS/ML MDV SQ SCH (22:49)
[2016-11-24] MEDS: ACETAMINOPHEN 650 MG/20.3 ML ORAL SOLUTION (CUPS) GT PRN (22:50)
[2016-11-25] MEDS: INSULIN SLIDING SCALE (NOVOLOG) 1 VIAL SQ SCH ×5 (00:06→21:47)
[2016-11-25] MEDS: MULTIVITAMINS LIQUID THERAPEUTIC 118 ML BOT GT SCH (10:30)
[2016-11-25] MEDS: LACTOBACILLUS ACIDOPHILUS 1 EACH TAB (FP) PO SCH (10:30)
[2016-11-25] MEDS: LISINOPRIL 20 MG TABLET (FP) GT SCH (10:35)
[2016-11-25] MEDS: SIMETHICONE 40 MG/0.6 ML BOTTLE PEG SCH (10:40)
[2016-11-25] MEDS: RANITIDINE HCL 150 MG/10 ML UNIT-DOSE CUP PO SCH ×2 (10:45→21:47)
[2016-11-25] MEDS: amLODIPine BESYLATE 10 MG TABLET (FP) GT SCH (10:45)
[2016-11-25] MEDS: METOPROLOL TARTRATE 50 MG TABLET (FP) GT SCH ×3 (10:50→21:45)
[2016-11-25] MEDS: AMINO ACIDS/PROTEIN HYDROLYS SUGAR-FREE 30 ML PACKET PO SCH (10:50)
--- NOTE | 2016-11-25 11:35 | PN ---
Physical Exam: SUBJECTIVE: Patient seen and examined. He appears comfortable at rest, non verbal at baseline. Febrile overnight 100.2Tmax, will monitor fever trend. Non toxic appearing Also noted to be hypertensive. Flacc pain scale "0" OBJECTIVE: Vital Signs Period Temp Pulse Resp BP Sys/Santiago Pulse Ox Last 24 Hr 98 F-100.2 F 80-97 18-20 142-152/88-92 97 GENERAL: appears comfortable at rest, Tolerating feeds HEAD: Normal with no signs of trauma NECK: Trach removed, site is c/d/i, no redness or drainage noted. LUNGS: Scattered rhonchi on anterior lung baeza HEART: Regular rate and rhythm, heart rate 80 - 90s ABDOMEN: peg tube LUQ - on Jevity feeds with water flushes NEUROLOGICAL: at baseline, opens eyes intermittently SKIN: Healed stage 3 on sacrum Laboratory Results - last 24 hr 11/24/16 11/24/16 11/24/16 11:50 12:16 17:12 POC Glucometer 175 178 191 11/25/16 11/25/16 00:03 05:34 POC Glucometer 164 155 Active Medications Generic Name Dose Route Start Last Admin Trade Name Freq PRN Reason Stop Dose Admin Acetaminophen 650 mg 05/26/16 14:23 11/24/16 22:50 Tylenol Oral Solution - GT 650 mg Q4H PRN Administration FEVER Amino Acids 30 ml 06/28/16 10:00 11/24/16 11:30 Prostat Sugar-Free Packet - PO 30 ml DAILY KWAKU Administration Amlodipine Besylate 10 mg 12/30/15 10:00 11/24/16 11:30 Norvasc - GT 10 mg DAILY KWAKU Administration Guaifenesin 10 ml 12/29/15 10:43 11/16/16 11:59 Robitussin Dm - PO 10 ml Q6H PRN Administration COUGH Insulin Aspart 1 vial 09/17/16 16:30 11/25/16 06:26 Novolog Vial Sliding Scale - SQ 4 units ACHS KWAKU Administration Protocol Insulin Detemir 20 units 09/21/16 13:25 11/24/16 22:49 Levemir Vial SQ 20 units HS KWAKU Administration Lactobacillus Acidophilus 1 tab 12/30/15 10:00 11/24/16 11:29 Bacid - PO 1 tab DAILY KWAKU Administration Lisinopril 40 mg 12/30/15 10:00 11/24/16 11:29 Prinivil GT 40 mg DAILY KWAKU Administration Metoprolol Tartrate 150 mg 12/29/15 22:00 11/24/16 22:50 Lopressor - GT 150 mg BID KWAKU Administration Metoprolol Tartrate 5 mg 12/29/15 10:43 Lopressor Injection - IVPB Q6H PRN HYPERTENSION Multi-Ingredient Lotion 1 applic 11/07/16 11:55 Eucerin (Large Jar) - TP BID PRN DRY SKIN Multivitamins 5 ml 10/16/16 16:30 11/24/16 11:30 Thera-Plus - GT 5 ml DAILY KWAKU Administration Ranitidine HCl 150 mg 08/27/16 12:15 11/24/16 22:50 Zantac Oral Solution - PO 150 mg BID KWAKU Administration Scopolamine HBr 1 patch 05/20/16 15:45 11/22/16 18:16 Transderm-Scop - TD 1 patch Q72H KWAKU Administration Simethicone 40 mg 08/25/16 10:00 11/24/16 11:31 Mylicon Liquid - PEG 40 mg DAILY KWAKU Administration ASSESSMENT/PLAN: Patient is a 76 year old male with a past medical history of IDDM, HTN and inguinal hernia. He presented to the emergency room on 06/27/2015 with a diverticular bleed s/p right hemicolectomy. His hospitalization was further complicated with a CVA with anoxic brain injury. He is s/p trach secondary to respiratory failure. He is currently tolerating room air, no pain behaviours on exam. Further he is noted to be: - Febrile overnight 100.2Tmax, will monitor fever trend. - hypertensive ID: Fevers - acute on chronic Assessment/Plan: febrile overnight, TMAX 100.2F, will monitor next labs for Sunday a.m Vitals are stable, non toxic appearing Neurology: Sleep apnea - likely chronic Assessment/Plan: No breathing pauses observed during exam, oxygen saturations on room air stable Can wear oxygen as needed, but none required at this time Monitor oxygen levels, nasal cannula as needed Anoxic brain injury s/p brainstem CVA - at baseline Assessment/Plan: Mental status at baseline Functional quadriplegia secondary to anoxic brain injury Assessment/Plan: Requires total care, on continuous feeds He is unable to participate in any activities of daily living -requires 24 hour care Pulmonary: Respiratory failure secondary to anoxic brain injury - resolved Assessment/Plan: Tolerating room air. Has respiratory failure secondary to anoxic brain injury. He is on duonebs PRN, Trach collar removed - site open to air, CDI Cardiology: Hypertension - chronic Assessment/Plan: Hypertension continues. Increased Lopressor to 200mg BID and will monitor his BP. He is also on Norvasc 10mg daily and Lopressor 150mg BID needs close monitoring of BP Endocrine: Diabetes - chronic Assessment/Plan: Tight glucose coverage, Capillary glucose ac/hs Integumentary: Stage III pressure ulcers buttocks - healed Assessment/Plan: Continue Prostat daily, as he continues to be a high risk Monitor skin integrity, turn and position q2 F.E.N. NPO - all meds through GT Glucerna 70cc/hr with water flushes and 250cc free water BID via GT Prostat for treatment of pressure ulcers Functional quadraplegia Monitor for dehydration Prophylaxis: DVT: SCDs - both legs. No AC: contraindicated secondary to history of GI bleed GI Regimen: Ranitidine BID Bowel regimen: deferred - secondary to soft stools He is bed bound and a total care Code Status: Patient continues to require inpatient hospitalization. Do Not Resuscitate. Visit type - Emergency Visit Emergency Visit: Yes ED Registration Date: 06/27/15 Care time: The patient presented to the Emergency Department on the above date and was hospitalized for further evaluation of their emergent condition. - New Patient This patient is new to me today: No - Critical Care Critical Care patient: No - Discharge Referral Referred to [facility] Med P.C.: No
[2016-11-25] MEDS: SCOPOLAMINE HYDROBROMIDE 1 PATCH PATCH.TD72 TD SCH (15:55)
[2016-11-25] MEDS: ACETAMINOPHEN 650 MG/20.3 ML ORAL SOLUTION (CUPS) GT PRN (17:22)
[2016-11-25] MEDS: INSULIN DETEMIR 100 UNITS/ML MDV SQ SCH (21:46)
[2016-11-26] MEDS: INSULIN SLIDING SCALE (NOVOLOG) 1 VIAL SQ SCH ×4 (06:11→22:20)
[2016-11-26] MEDS: ACETAMINOPHEN 650 MG/20.3 ML ORAL SOLUTION (CUPS) GT PRN ×2 (06:11→17:15)
--- NOTE | 2016-11-26 10:23 | PN ---
Physical Exam: SUBJECTIVE: Patient seen and examined He appears comfortable at rest, non verbal at baseline. Febrile 100.8Tmax, will monitor fever trend. Non toxic appearing Also noted to be hypertensive and beta brittany dose increased Flacc pain scale "0" OBJECTIVE: Vital Signs Period Temp Pulse Resp BP Sys/Santiago Pulse Ox Last 24 Hr 95.6 F-100.8 F 72-105 18-20 131-139/76-88 99 Laboratory Results - last 24 hr 11/25/16 11/25/16 11/25/16 12:57 16:02 21:43 POC Glucometer 160 167 167 11/26/16 05:47 POC Glucometer 162 Active Medications Generic Name Dose Route Start Last Admin Trade Name Freq PRN Reason Stop Dose Admin Acetaminophen 650 mg 05/26/16 14:23 11/26/16 06:11 Tylenol Oral Solution - GT 650 mg Q4H PRN Administration FEVER Amino Acids 30 ml 06/28/16 10:00 11/25/16 10:50 Prostat Sugar-Free Packet - PO 30 ml DAILY KWAKU Administration Amlodipine Besylate 10 mg 12/30/15 10:00 11/25/16 10:45 Norvasc - GT 10 mg DAILY KWAKU Administration Guaifenesin 10 ml 12/29/15 10:43 11/16/16 11:59 Robitussin Dm - PO 10 ml Q6H PRN Administration COUGH Insulin Aspart 1 vial 09/17/16 16:30 11/26/16 06:11 Novolog Vial Sliding Scale - SQ 4 units ACHS KWAKU Administration Protocol Insulin Detemir 20 units 09/21/16 13:25 11/25/16 21:46 Levemir Vial SQ 20 units HS KWAKU Administration Lactobacillus Acidophilus 1 tab 12/30/15 10:00 11/25/16 10:30 Bacid - PO 1 tab DAILY KWAKU Administration Lisinopril 40 mg 12/30/15 10:00 11/25/16 10:35 Prinivil GT 40 mg DAILY KWAKU Administration Metoprolol Tartrate 5 mg 12/29/15 10:43 Lopressor Injection - IVPB Q6H PRN HYPERTENSION Metoprolol Tartrate 200 mg 11/25/16 11:40 11/25/16 21:45 Lopressor - GT 200 mg BID KWAKU Administration Multi-Ingredient Lotion 1 applic 11/07/16 11:55 Eucerin (Large Jar) - TP BID PRN DRY SKIN Multivitamins 5 ml 10/16/16 16:30 11/25/16 10:30 Thera-Plus - GT 5 ml DAILY KWAKU Administration Ranitidine HCl 150 mg 08/27/16 12:15 11/25/16 21:47 Zantac Oral Solution - PO 150 mg BID KWAKU Administration Scopolamine HBr 1 patch 05/20/16 15:45 11/25/16 15:55 Transderm-Scop - TD 1 patch Q72H KWAKU Administration Simethicone 40 mg 08/25/16 10:00 11/25/16 10:40 Mylicon Liquid - PEG 40 mg DAILY KWAKU Administration ASSESSMENT/PLAN: Patient is a 76 year old male with a past medical history of IDDM, HTN and inguinal hernia. He presented to the emergency room on 06/27/2015 with a diverticular bleed s/p right hemicolectomy. His hospitalization was further complicated with a CVA with anoxic brain injury. He is s/p trach secondary to respiratory failure. He is currently tolerating room air, no pain behaviours on exam. 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 Has respiratory failure secondary to anoxic brain injury. He is on duonebs PRN, Trach collar removed - site open to air, CDI Cardiology: Hypertension - chronic Assessment/Plan: Hypertension Increased Lopressor to 200mg BID and will monitor his BP. He is also on Norvasc 10mg daily and Lopressor 150mg BID Endocrine: Diabetes - chronic Assessment/Plan: Tight glucose coverage, Capillary glucose ac/hs Integumentary: Stage III pressure ulcers buttocks - healed Assessment/Plan: Continue Prostat daily, low score on Eliseo scale Monitor skin integrity, turn and position q2 F.E.N. NPO - all meds through GT Glucerna 70cc/hr with water flushes and 250cc free water BID via GT Prostat for treatment of pressure ulcers Functional quadraplegia Monitor for dehydration Prophylaxis: DVT: SCDs - both legs. No AC: contraindicated secondary to history of GI bleed GI Regimen: Ranitidine BID Bowel regimen: deferred - secondary to soft stools He is bed bound and a total care Code Status: Patient continues to require inpatient hospitalization. Do Not Resuscitate. Visit type - Emergency Visit Emergency Visit: Yes ED Registration Date: 06/27/15 Care time: The patient presented to the Emergency Department on the above date and was hospitalized for further evaluation of their emergent condition. - New Patient This patient is new to me today: No - Critical Care Critical Care patient: No - Discharge Referral Referred to [facility] Med P.C.: No
[2016-11-26] MEDS: amLODIPine BESYLATE 10 MG TABLET (FP) GT SCH (11:34)
[2016-11-26] MEDS: LACTOBACILLUS ACIDOPHILUS 1 EACH TAB (FP) PO SCH (11:34)
[2016-11-26] MEDS: METOPROLOL TARTRATE 50 MG TABLET (FP) GT SCH ×2 (11:34→22:13)
[2016-11-26] MEDS: LISINOPRIL 20 MG TABLET (FP) GT SCH (11:35)
[2016-11-26] MEDS: RANITIDINE HCL 150 MG/10 ML UNIT-DOSE CUP PO SCH ×2 (11:35→22:13)
[2016-11-26] MEDS: AMINO ACIDS/PROTEIN HYDROLYS SUGAR-FREE 30 ML PACKET PO SCH (11:35)
[2016-11-26] MEDS: SIMETHICONE 40 MG/0.6 ML BOTTLE PEG SCH (11:35)
[2016-11-26] MEDS: MULTIVITAMINS LIQUID THERAPEUTIC 118 ML BOT GT SCH (11:36)
[2016-11-26] MEDS: INSULIN DETEMIR 100 UNITS/ML MDV SQ SCH (22:20)
[2016-11-27] MEDS: INSULIN SLIDING SCALE (NOVOLOG) 1 VIAL SQ SCH ×4 (06:08→22:18)
[2016-11-27 07:15] LABS: BASOPHIL 0.6 % (0-2.0); EOSINOPHIL 2.8 % (0-4.5); MCH 30.5 pg (25.7-33.7); MCHC 33.8 g/dl (32.0-35.9); MEAN CELL VOLUME 90.4 fl (80-96); MEAN PLT VOLUME 10.2 fl (7.5-11.1); NEUTROPHILS 65.8 % (42.8-82.8); PLATELET COUNT 156 K/MM3 (134-434); RDW 15.4 % (11.9-15.9); WHITE BLOOD COUNT 10.5 K/mm3 (4.0-10.0)
[2016-11-27 07:49] LABS: ALBUMIN 3.3 g/dl (3.4-5.0); ALK PHOS 124 U/L (45-117); ANION GAP 9 (8-16); BILIRUBIN,TOTAL 0.3 mg/dL (0.2-1.0); CALCIUM 9.5 mg/dL (8.5-10.1); CO2 30 mmol/L (21-32); CREATININE 0.9 mg/dL (0.7-1.3); GLUCOSE,RANDOM 131 mg/dL (74-106); SGOT/AST 27 U/L (15-37); SGPT/ALT 63 U/L (12-78); TOT PROT 8.1 g/dl (6.4-8.2)
--- NOTE | 2016-11-27 09:32 | PN ---
Physical Exam: SUBJECTIVE: Patient seen and examined. No fevers noted. OBJECTIVE: Vital Signs Period Temp Pulse Resp BP Sys/Santiago Pulse Ox Last 24 Hr 98.3 F-101.3 F 76-98 17-20 133-149/77-93 99 PE Neuro: awake, alert Pulm: Clear anteriorly, trach hole open CV: s1 s2 rrr Abd: peg tube cdi Ext: foot drop, no edema Laboratory Results - last 24 hr 11/27/16 11/27/16 11/27/16 05:52 05:52 06:07 WBC 10.5 H D RBC 4.07 Hgb 12.4 Hct 36.8 MCV 90.4 MCHC 33.8 RDW 15.4 Plt Count 156 MPV 10.2 Neutrophils % 65.8 D Lymphocytes % 25.0 D Monocytes % 5.8 Eosinophils % 2.8 Basophils % 0.6 Sodium 149 H Potassium 3.8 Chloride 110 H Carbon Dioxide 30 Anion Gap 9 BUN 33 H D Creatinine 0.9 Creat Clearance w eGFR > 60 POC Glucometer 138 Random Glucose 131 H Calcium 9.5 Total Bilirubin 0.3 AST 27 D ALT 63 D Alkaline Phosphatase 124 H D Total Protein 8.1 Albumin 3.3 L Active Medications Generic Name Dose Route Start Last Admin Trade Name Freq PRN Reason Stop Dose Admin Acetaminophen 650 mg 05/26/16 14:23 11/26/16 17:15 Tylenol Oral Solution - GT 650 mg Q4H PRN Administration FEVER Amino Acids 30 ml 06/28/16 10:00 11/26/16 11:35 Prostat Sugar-Free Packet - PO 30 ml DAILY KWAKU Administration Amlodipine Besylate 10 mg 12/30/15 10:00 11/26/16 11:34 Norvasc - GT 10 mg DAILY KWAKU Administration Insulin Aspart 1 vial 09/17/16 16:30 11/27/16 06:08 Novolog Vial Sliding Scale - SQ Not Given ACHS [facility] Protocol Insulin Detemir 20 units 09/21/16 13:25 11/26/16 22:20 Levemir Vial SQ 20 units HS KWAKU Administration Lisinopril 40 mg 12/30/15 10:00 11/26/16 11:35 Prinivil GT 40 mg DAILY KWAKU Administration Multi-Ingredient Lotion 1 applic 11/07/16 11:55 Eucerin (Large Jar) - TP BID PRN DRY SKIN Multivitamins 5 ml 10/16/16 16:30 11/26/16 11:36 Thera-Plus - GT 5 ml DAILY KWAKU Administration Ranitidine HCl 150 mg 08/27/16 12:15 11/26/16 22:13 Zantac Oral Solution - PO 150 mg BID KWAKU Administration Assessment: 76 year old male with PMHx of HTN, IDDM, inguinal hernia who presented to the ED with diverticular bleed s/p Right hemicolectomy with hospital course complicated 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 Plan: 1. Anoxic brain injury s/p brainstem CVAs - Mental status unchanged 2. Respiratory failure with spontaneous breathing pauses 2/2 anoxic brain injury - Discontinue scopolomine patch, will observe for secretions - No therapy for pauses per pulm 3. HTN - Appears stable - Will discontinue lopressor and monitor BP - Continue norvasc 10mg, lisinopril 40mg daily 4. Hypernatremia - 2.8L water deficit - Increase free water flush to 83cc/hr for 24 hrs - Will recheck BMP in 6 hrs 5. Multiple pressure ulcers - Daily wound care - Turn and position q2h 6. IDDM - Levemir at 20u sq qhs - ISS BGM ACHS 7. Nutrition - 70 ml/hr Glucerna 1.5, 83 ml/hr water flushes today - Prostat daily 8. Prophylaxis - SCDs bilaterally - No chemical AC 2/2 spontaneous gluteal bleed and severe GI bleed - Zantac BID 9. Functional quadriplegia Visit type - Emergency Visit Emergency Visit: Yes ED Registration Date: 06/27/15 Care time: The patient presented to the Emergency Department on the above date and was hospitalized for further evaluation of their emergent condition. - New Patient This patient is new to me today: No - Critical Care Critical Care patient: No
[2016-11-27] MEDS: LISINOPRIL 20 MG TABLET (FP) GT SCH (10:32)
[2016-11-27] MEDS: amLODIPine BESYLATE 10 MG TABLET (FP) GT SCH (10:32)
[2016-11-27] MEDS: MULTIVITAMINS LIQUID THERAPEUTIC 118 ML BOT GT SCH (10:33)
[2016-11-27] MEDS: RANITIDINE HCL 150 MG/10 ML UNIT-DOSE CUP PO SCH ×2 (10:33→22:18)
[2016-11-27] MEDS: AMINO ACIDS/PROTEIN HYDROLYS SUGAR-FREE 30 ML PACKET PO SCH (10:33)
[2016-11-27] MEDS: INSULIN DETEMIR 100 UNITS/ML MDV SQ SCH (22:18)
[2016-11-28] MEDS: INSULIN SLIDING SCALE (NOVOLOG) 1 VIAL SQ SCH ×4 (06:36→22:40)
[2016-11-28 08:10] LABS: CALCIUM 9.7 mg/dL (8.5-10.1); CREATININE 0.9 mg/dL (0.7-1.3)
[2016-11-28] MEDS: RANITIDINE HCL 150 MG/10 ML UNIT-DOSE CUP PO SCH ×2 (10:50→22:42)
[2016-11-28] MEDS: METOPROLOL TARTRATE 50 MG TABLET (FP) GT SCH ×2 (10:50→22:41)
[2016-11-28] MEDS: amLODIPine BESYLATE 10 MG TABLET (FP) GT SCH (10:50)
[2016-11-28] MEDS: LISINOPRIL 20 MG TABLET (FP) GT SCH (10:50)
[2016-11-28] MEDS: MULTIVITAMINS LIQUID THERAPEUTIC 118 ML BOT GT SCH (10:50)
[2016-11-28] MEDS: AMINO ACIDS/PROTEIN HYDROLYS SUGAR-FREE 30 ML PACKET PO SCH (10:50)
--- NOTE | 2016-11-28 15:16 | PN ---
Physical Exam: SUBJECTIVE: Patient seen and examined. Tachycardia noted. OBJECTIVE: Vital Signs Period Temp Pulse Resp BP Sys/Santiago Pulse Ox Last 24 Hr 98.2 F-99.3 F 80-113 16-20 121-146/79-101 98 PE Neuro: awake, alert Pulm: Clear anteriorly, trach hole open CV: s1 s2 rrr no mrg Abd: peg tube cdi s nt nd +bs Ext: foot drop, no edema Laboratory Results - last 24 hr 11/27/16 11/27/16 11/27/16 16:45 16:58 22:05 Sodium 149 H Potassium 3.9 Chloride 110 H Carbon Dioxide 30 Anion Gap 9 BUN 29 H Creatinine 1.0 POC Glucometer 135 197 Random Glucose 126 H Calcium 10.0 11/28/16 11/28/16 11/28/16 06:00 06:11 12:11 Sodium 148 H Potassium 3.7 Chloride 110 H Carbon Dioxide 29 Anion Gap 9 BUN 28 H Creatinine 0.9 POC Glucometer 138 203 Random Glucose 131 H Calcium 9.7 Active Medications Generic Name Dose Route Start Last Admin Trade Name Freq PRN Reason Stop Dose Admin Acetaminophen 650 mg 05/26/16 14:23 11/26/16 17:15 Tylenol Oral Solution - GT 650 mg Q4H PRN Administration FEVER Amino Acids 30 ml 06/28/16 10:00 11/28/16 10:50 Prostat Sugar-Free Packet - PO 30 ml DAILY KWAKU Administration Amlodipine Besylate 10 mg 12/30/15 10:00 11/28/16 10:50 Norvasc - GT 10 mg DAILY KWAKU Administration Insulin Aspart 1 vial 09/17/16 16:30 11/28/16 12:20 Novolog Vial Sliding Scale - SQ 6 units ACHS KWAKU Administration Protocol Insulin Detemir 20 units 09/21/16 13:25 11/27/16 22:18 Levemir Vial SQ 20 units HS KWAKU Administration Lisinopril 40 mg 12/30/15 10:00 11/28/16 10:50 Prinivil GT 40 mg DAILY KWAKU Administration Metoprolol Tartrate 150 mg 11/28/16 10:00 11/28/16 10:50 Lopressor - GT 150 mg BID KWAKU Administration Multi-Ingredient Lotion 1 applic 11/07/16 11:55 Eucerin (Large Jar) - TP BID PRN DRY SKIN Multivitamins 5 ml 10/16/16 16:30 11/28/16 10:50 Thera-Plus - GT 5 ml DAILY KWAKU Administration Ranitidine HCl 150 mg 08/27/16 12:15 11/28/16 10:50 Zantac Oral Solution - PO 150 mg BID KWAKU Administration Assessment: 76 year old male with PMHx of HTN, IDDM, inguinal hernia who presented to the ED with diverticular bleed s/p Right hemicolectomy with hospital course complicated 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 Plan: 1. Anoxic brain injury s/p brainstem CVAs - Mental status unchanged 2. Respiratory failure with spontaneous breathing pauses 2/2 anoxic brain injury - Secretions minimal after scope patch d/c, resume as needed - No therapy for pauses per pulm 3. HTN - Associated tachycardia with AM BP - Will restart lopressor 150mg BID - Continue norvasc 10mg, lisinopril 40mg daily 4. Hypernatremia - Minimal improvment - Continue free water flush to 83cc/hr for 24 hrs - Will recheck BMP at 1600 5. Multiple pressure ulcers - Daily wound care - Turn and position q2h 6. IDDM - Levemir at 20u sq qhs - ISS BGM ACHS 7. Nutrition - 70 ml/hr Glucerna 1.5, 83 ml/hr water flushes today - Prostat daily 8. Prophylaxis - SCDs bilaterally - No chemical AC 2/2 spontaneous gluteal bleed and severe GI bleed - Zantac BID 9. Functional quadriplegia Visit type - Emergency Visit Emergency Visit: Yes ED Registration Date: 06/27/15 Care time: The patient presented to the Emergency Department on the above date and was hospitalized for further evaluation of their emergent condition. - New Patient This patient is new to me today: No - Critical Care Critical Care patient: No
[2016-11-28 16:30] LABS: CALCIUM 9.4 mg/dL (8.5-10.1); CREATININE 0.8 mg/dL (0.7-1.3)
[2016-11-28] MEDS: INSULIN DETEMIR 100 UNITS/ML MDV SQ SCH (22:40)
[2016-11-28] MEDS: ACETAMINOPHEN 650 MG/20.3 ML ORAL SOLUTION (CUPS) GT PRN (22:42)
[2016-11-29] MEDS: INSULIN SLIDING SCALE (NOVOLOG) 1 VIAL SQ SCH ×4 (06:32→23:09)
[2016-11-29] MEDS: ACETAMINOPHEN 650 MG/20.3 ML ORAL SOLUTION (CUPS) GT PRN (10:46)
[2016-11-29] MEDS: METOPROLOL TARTRATE 50 MG TABLET (FP) GT SCH ×2 (10:47→22:53)
[2016-11-29] MEDS: amLODIPine BESYLATE 10 MG TABLET (FP) GT SCH (10:47)
[2016-11-29] MEDS: LISINOPRIL 20 MG TABLET (FP) GT SCH (10:48)
[2016-11-29] MEDS: MULTIVITAMINS LIQUID THERAPEUTIC 118 ML BOT GT SCH (10:49)
[2016-11-29] MEDS: RANITIDINE HCL 150 MG/10 ML UNIT-DOSE CUP PO SCH ×2 (10:49→22:53)
[2016-11-29] MEDS: AMINO ACIDS/PROTEIN HYDROLYS SUGAR-FREE 30 ML PACKET PO SCH (10:49)
--- NOTE | 2016-11-29 11:20 | PN ---
Physical Exam: SUBJECTIVE: Patient seen and examined. Stable OBJECTIVE: Vital Signs Period Temp Pulse Resp BP Sys/Santiago Pulse Ox Last 24 Hr 97.6 F-100.5 F 80-107 18-20 140-144/79-97 98 PE Neuro: awake, alert Pulm: Clear anteriorly, trach hole open CV: s1 s2 rrr no mrg Abd: peg tube cdi s nt nd +bs Ext: foot drop, no edema CMP Sodium 146 mmol/L (136-145) H 11/29/16 10:22 Potassium 3.6 mmol/L (3.5-5.1) 11/29/16 10:22 Chloride 109 mmol/L (98-107) H 11/29/16 10:22 Carbon Dioxide 29 mmol/L (21-32) 11/29/16 10:22 Anion Gap 8 (8-16) 11/29/16 10:22 BUN 25 mg/dL (7-18) H 11/29/16 10:22 Creatinine 0.8 mg/dL (0.7-1.3) 11/29/16 10:22 Creat Clearance w eGFR > 60 (>60) 11/27/16 05:52 Calcium 9.7 mg/dL (8.5-10.1) 11/29/16 10:22 Total Bilirubin 0.3 mg/dL (0.2-1.0) 11/27/16 05:52 AST 27 U/L (15-37) D 11/27/16 05:52 ALT 63 U/L (12-78) D 11/27/16 05:52 Alkaline Phosphatase 124 U/L (45-117) H D 11/27/16 05:52 Total Protein 8.1 g/dl (6.4-8.2) 11/27/16 05:52 Albumin 3.3 g/dl (3.4-5.0) L 11/27/16 05:52 Active Medications Generic Name Dose Route Start Last Admin Trade Name Freq PRN Reason Stop Dose Admin Acetaminophen 650 mg 05/26/16 14:23 11/29/16 10:46 Tylenol Oral Solution - GT 650 mg Q4H PRN Administration FEVER Amino Acids 30 ml 06/28/16 10:00 11/29/16 10:49 Prostat Sugar-Free Packet - PO 30 ml DAILY KWAKU Administration Amlodipine Besylate 10 mg 12/30/15 10:00 11/29/16 10:47 Norvasc - GT 10 mg DAILY KWAKU Administration Insulin Aspart 1 vial 09/17/16 16:30 11/29/16 06:32 Novolog Vial Sliding Scale - SQ 4 units ACHS KWAKU Administration Protocol Insulin Detemir 20 units 09/21/16 13:25 11/28/16 22:40 Levemir Vial SQ 20 units HS KWAKU Administration Lisinopril 40 mg 12/30/15 10:00 11/29/16 10:48 Prinivil GT 40 mg DAILY KWAKU Administration Metoprolol Tartrate 150 mg 11/28/16 10:00 11/29/16 10:47 Lopressor - GT 150 mg BID KWAKU Administration Multi-Ingredient Lotion 1 applic 11/07/16 11:55 Eucerin (Large Jar) - TP BID PRN DRY SKIN Multivitamins 5 ml 10/16/16 16:30 11/29/16 10:49 Thera-Plus - GT 5 ml DAILY KWAKU Administration Ranitidine HCl 150 mg 08/27/16 12:15 11/29/16 10:49 Zantac Oral Solution - PO 150 mg BID KWAKU Administration Assessment: 76 year old male with PMHx of HTN, IDDM, inguinal hernia who presented to the ED with diverticular bleed s/p Right hemicolectomy with hospital course complicated 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 Plan: 1. Anoxic brain injury s/p brainstem CVAs - Mental status unchanged 2. Respiratory failure with spontaneous breathing pauses 2/2 anoxic brain injury - Secretions minimal after scope patch d/c, resume as needed - No therapy for pauses per pulm 3. HTN - HR controlled - Continue lopressor 150mg BID - Continue norvasc 10mg - Continue lisinopril 40mg daily 4. Hypernatremia - AM BMP pending - Increase free water flush to 100cc/hr for 24 hrs 5. Multiple pressure ulcers - Daily wound care - Turn and position q2h 6. IDDM - Levemir at 20u sq qhs - ISS BGM ACHS 7. Nutrition - 70 ml/hr Glucerna 1.5, 83 ml/hr water flushes today - Prostat daily 8. Prophylaxis - SCDs bilaterally - No chemical AC 2/2 spontaneous gluteal bleed and severe GI bleed - Zantac BID 9. Functional quadriplegia Visit type - Emergency Visit Emergency Visit: Yes ED Registration Date: 06/27/15 Care time: The patient presented to the Emergency Department on the above date and was hospitalized for further evaluation of their emergent condition. - New Patient This patient is new to me today: No - Critical Care Critical Care patient: No
[2016-11-29 11:25] LABS: CALCIUM 9.7 mg/dL (8.5-10.1)
[2016-11-29 11:27] LABS: CREATININE 0.8 mg/dL (0.7-1.3)
[2016-11-29] MEDS: INSULIN DETEMIR 100 UNITS/ML MDV SQ SCH (22:52)
[2016-11-30] MEDS: INSULIN SLIDING SCALE (NOVOLOG) 1 VIAL SQ SCH ×4 (06:42→22:04)
[2016-11-30] MEDS: LISINOPRIL 20 MG TABLET (FP) GT SCH (10:00)
[2016-11-30] MEDS: AMINO ACIDS/PROTEIN HYDROLYS SUGAR-FREE 30 ML PACKET PO SCH (10:00)
[2016-11-30] MEDS: RANITIDINE HCL 150 MG/10 ML UNIT-DOSE CUP PO SCH ×2 (10:00→22:10)
[2016-11-30] MEDS: MULTIVITAMINS LIQUID THERAPEUTIC 118 ML BOT GT SCH (10:00)
[2016-11-30] MEDS: METOPROLOL TARTRATE 50 MG TABLET (FP) GT SCH ×2 (10:00→22:10)
[2016-11-30] MEDS: amLODIPine BESYLATE 10 MG TABLET (FP) GT SCH (10:00)
[2016-11-30 10:51] LABS: CALCIUM 10.2 mg/dL (8.5-10.1); CREATININE 0.7 mg/dL (0.7-1.3)
--- NOTE | 2016-11-30 11:21 | PN ---
Physical Exam: SUBJECTIVE: Patient seen and examined. no changes, no fevers Events: hypernatremia OBJECTIVE: Vital Signs Period Temp Pulse Resp BP Sys/Santiago Pulse Ox Last 24 Hr 98.1 F-98.7 F 73-90 18-20 127-145/76-90 97 PE Neuro: awake, alert Pulm: Clear anteriorly, trach hole open CV: s1 s2 rrr no mrg Abd: peg tube cdi s nt nd +bs Ext: foot drop, no edema Laboratory Results - last 24 hr 11/29/16 11/29/16 11/29/16 10:22 12:50 17:12 Sodium 146 H Potassium 3.6 Chloride 109 H Carbon Dioxide 29 Anion Gap 8 BUN 25 H Creatinine 0.8 POC Glucometer 138 166 Random Glucose 140 H Calcium 9.7 11/29/16 11/30/16 11/30/16 22:57 06:22 09:55 Sodium 148 H Potassium 3.7 Chloride 110 H Carbon Dioxide 27 Anion Gap 11 BUN 25 H Creatinine 0.7 POC Glucometer 135 158 Random Glucose 133 H Calcium 10.2 H Active Medications Generic Name Dose Route Start Last Admin Trade Name Freq PRN Reason Stop Dose Admin Acetaminophen 650 mg 05/26/16 14:23 11/29/16 10:46 Tylenol Oral Solution - GT 650 mg Q4H PRN Administration FEVER Amino Acids 30 ml 06/28/16 10:00 11/29/16 10:49 Prostat Sugar-Free Packet - PO 30 ml DAILY KWAKU Administration Amlodipine Besylate 10 mg 12/30/15 10:00 11/29/16 10:47 Norvasc - GT 10 mg DAILY KWAKU Administration Insulin Aspart 1 vial 09/17/16 16:30 11/30/16 06:42 Novolog Vial Sliding Scale - SQ 4 units ACHS KWAKU Administration Protocol Insulin Detemir 20 units 09/21/16 13:25 11/29/16 22:52 Levemir Vial SQ 20 units HS KWAKU Administration Lisinopril 40 mg 12/30/15 10:00 11/29/16 10:48 Prinivil GT 40 mg DAILY KWAKU Administration Metoprolol Tartrate 150 mg 11/28/16 10:00 11/29/16 22:53 Lopressor - GT 150 mg BID KWAKU Administration Multi-Ingredient Lotion 1 applic 11/07/16 11:55 Eucerin (Large Jar) - TP BID PRN DRY SKIN Multivitamins 5 ml 10/16/16 16:30 11/29/16 10:49 Thera-Plus - GT 5 ml DAILY KWAKU Administration Ranitidine HCl 150 mg 08/27/16 12:15 11/29/16 22:53 Zantac Oral Solution - PO 150 mg BID KWAKU Administration Assessment: 76 year old male with PMHx of HTN, IDDM, inguinal hernia who presented to the ED with diverticular bleed s/p Right hemicolectomy with hospital course complicated 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 Plan: 1. Anoxic brain injury s/p brainstem CVAs - Mental status unchanged 2. Respiratory failure with spontaneous breathing pauses 2/2 anoxic brain injury - Secretions minimal after scope patch d/c, resume as needed - No therapy for pauses per pulm 3. HTN - HR controlled - Continue lopressor 150mg BID - Continue norvasc 10mg - Continue lisinopril 40mg daily 4. Hypernatremia - Continue free water flush to 100cc/hr for 24 hrs 5. Multiple pressure ulcers - Daily wound care - Turn and position q2h 6. IDDM - Levemir at 20u sq qhs - ISS BGM ACHS 7. Nutrition - 70 ml/hr Glucerna 1.5, 83 ml/hr water flushes today - Prostat daily 8. Prophylaxis - SCDs bilaterally - No chemical AC 2/2 spontaneous gluteal bleed and severe GI bleed - Zantac BID 9. Functional quadriplegia Visit type - Emergency Visit Emergency Visit: Yes ED Registration Date: 06/27/15 Care time: The patient presented to the Emergency Department on the above date and was hospitalized for further evaluation of their emergent condition. - New Patient This patient is new to me today: No - Critical Care Critical Care patient: No
[2016-11-30] MEDS: INSULIN DETEMIR 100 UNITS/ML MDV SQ SCH (22:10)
[2016-12-01] MEDS: INSULIN SLIDING SCALE (NOVOLOG) 1 VIAL SQ SCH ×4 (06:23→23:29)
[2016-12-01 07:11] LABS: CALCIUM 9.1 mg/dL (8.5-10.1); CREATININE 0.8 mg/dL (0.7-1.3)
[2016-12-01] MEDS: METOPROLOL TARTRATE 50 MG TABLET (FP) GT SCH ×2 (12:27→23:17)
[2016-12-01] MEDS: LISINOPRIL 20 MG TABLET (FP) GT SCH (12:27)
[2016-12-01] MEDS: ACETAMINOPHEN 650 MG/20.3 ML ORAL SOLUTION (CUPS) GT PRN (12:28)
[2016-12-01] MEDS: RANITIDINE HCL 150 MG/10 ML UNIT-DOSE CUP PO SCH ×2 (12:28→23:17)
[2016-12-01] MEDS: amLODIPine BESYLATE 10 MG TABLET (FP) GT SCH (12:28)
[2016-12-01] MEDS: AMINO ACIDS/PROTEIN HYDROLYS SUGAR-FREE 30 ML PACKET PO SCH (12:28)
--- NOTE | 2016-12-01 13:18 | PN ---
Physical Exam: SUBJECTIVE: Patient seen and examined. He is comfortable at rest, in no acute distress. FLACC pain scale "0" OBJECTIVE: GENERAL: appears comfortable at rest, Tolerating feeds HEAD: Normal with no signs of trauma NECK: Trach removed, site is c/d/i, no redness or drainage noted. LUNGS: Scattered rhonchi on anterior lung baeza HEART: Regular rate and rhythm, heart rate 80 - 90s ABDOMEN: peg tube LUQ - on Jevity feeds with water flushes NEUROLOGICAL: at baseline, opens eyes intermittently SKIN: Healed stage 3 on sacrum Vital Signs Period Temp Pulse Resp BP Sys/Santiago Pulse Ox Last 24 Hr 97.3 F-98.4 F 67-85 18-20 135-148/81-85 97-97 Laboratory Results - last 24 hr 11/30/16 11/30/16 12/01/16 17:03 21:06 05:54 Sodium Potassium Chloride Carbon Dioxide Anion Gap BUN Creatinine POC Glucometer 159 111 172 Random Glucose Calcium 12/01/16 06:00 Sodium 142 Potassium 3.8 Chloride 104 Carbon Dioxide 28 Anion Gap 10 BUN 25 H Creatinine 0.8 POC Glucometer Random Glucose 159 H Calcium 9.1 Active Medications Generic Name Dose Route Start Last Admin Trade Name Freq PRN Reason Stop Dose Admin Acetaminophen 650 mg 05/26/16 14:23 12/01/16 12:28 Tylenol Oral Solution - GT 650 mg Q4H PRN Administration FEVER Amino Acids 30 ml 06/28/16 10:00 12/01/16 12:28 Prostat Sugar-Free Packet - PO 30 ml DAILY KWAKU Administration Amlodipine Besylate 10 mg 12/30/15 10:00 12/01/16 12:28 Norvasc - GT 10 mg DAILY KWAKU Administration Insulin Aspart 1 vial 09/17/16 16:30 12/01/16 12:34 Novolog Vial Sliding Scale - SQ Not Given ACHS [facility] Protocol Insulin Detemir 20 units 09/21/16 13:25 11/30/16 22:10 Levemir Vial SQ 20 units HS KWAKU Administration Lisinopril 40 mg 12/30/15 10:00 12/01/16 12:27 Prinivil GT 40 mg DAILY KWAKU Administration Metoprolol Tartrate 150 mg 11/28/16 10:00 12/01/16 12:27 Lopressor - GT 150 mg BID KWAKU Administration Multi-Ingredient Lotion 1 applic 11/07/16 11:55 Eucerin (Large Jar) - TP BID PRN DRY SKIN Multivitamins 5 ml 10/16/16 16:30 11/30/16 10:00 Thera-Plus - GT 5 ml DAILY KWAKU Administration Ranitidine HCl 150 mg 08/27/16 12:15 12/01/16 12:28 Zantac Oral Solution - PO 150 mg BID KWAKU Administration ASSESSMENT/PLAN: Patient is a 76 year old male with a past medical history of IDDM, HTN and inguinal hernia. He presented to the emergency room on 06/27/2015 with a diverticular bleed s/p right hemicolectomy. His hospitalization was further complicated with a CVA with anoxic brain injury. He is s/p trach secondary to respiratory failure. He is currently tolerating room air, no pain behaviours on exam. ID: Fevers - fever curve improved - afebrile since 11/28/2016 Assessment/Plan: Non toxic appearing, No edema noted on extremities Vitals are stable, continue to monitor Neurology: Sleep apnea - likely chronic Assessment/Plan: No breathing pauses observed during exam, oxygen saturations on room air stable Can wear oxygen as needed, but none required at this time Monitor oxygen levels, nasal cannula as needed Anoxic brain injury s/p brainstem CVA - at baseline Assessment/Plan: Mental status at baseline Functional quadriplegia secondary to anoxic brain injury Assessment/Plan: Requires total care, on continuous feeds He is unable to participate in any activities of daily living -requires 24 hour care Pulmonary: Respiratory failure secondary to anoxic brain injury - resolved Assessment/Plan: Tolerating room air. Has respiratory failure secondary to anoxic brain injury. He is on duonebs PRN, Trach collar removed - site open to air, CDI Cardiology: Hypertension - chronic Assessment/Plan: Hypertension Increased Lopressor to 200mg BID and will monitor his BP. On Norvasc 10mg daily, Lisinopril and Lopressor 150mg BID Endocrine: Diabetes - chronic Assessment/Plan: Tight glucose coverage, Capillary glucose ac/hs Integumentary: Stage III pressure ulcers buttocks - healed Assessment/Plan: Continue Prostat daily, low score on Eliseo scale Monitor skin integrity, turn and position q2 F.E.N. NPO - all meds through GT Glucerna 70cc/hr with water flushes and 250cc free water BID via GT Prostat for treatment of pressure ulcers Functional quadraplegia Monitor for dehydration Prophylaxis: DVT: SCDs - both legs. No AC: contraindicated secondary to history of GI bleed GI Regimen: Ranitidine BID Bowel regimen: deferred - secondary to soft stools He is bed bound and a total care Code Status: Patient continues to require inpatient hospitalization. Do Not Resuscitate. Visit type - Emergency Visit Emergency Visit: Yes ED Registration Date: 06/27/15 Care time: The patient presented to the Emergency Department on the above date and was hospitalized for further evaluation of their emergent condition. - New Patient This patient is new to me today: No - Critical Care Critical Care patient: No - Discharge Referral Referred to [facility] Med P.C.: No
[2016-12-01] MEDS: MULTIVITAMINS LIQUID THERAPEUTIC 118 ML BOT GT SCH (17:37)
[2016-12-01] MEDS: INSULIN DETEMIR 100 UNITS/ML MDV SQ SCH (23:17)
[2016-12-02] MEDS: INSULIN SLIDING SCALE (NOVOLOG) 1 VIAL SQ SCH ×4 (06:49→23:15)
[2016-12-02] MEDS: AMINO ACIDS/PROTEIN HYDROLYS SUGAR-FREE 30 ML PACKET PO SCH (11:16)
[2016-12-02] MEDS: METOPROLOL TARTRATE 50 MG TABLET (FP) GT SCH ×2 (11:16→23:16)
[2016-12-02] MEDS: amLODIPine BESYLATE 10 MG TABLET (FP) GT SCH (11:16)
[2016-12-02] MEDS: LISINOPRIL 20 MG TABLET (FP) GT SCH (11:16)
[2016-12-02] MEDS: RANITIDINE HCL 150 MG/10 ML UNIT-DOSE CUP PO SCH ×2 (11:17→23:16)
[2016-12-02] MEDS: MULTIVITAMINS LIQUID THERAPEUTIC 118 ML BOT GT SCH (11:17)
[2016-12-02] MEDS: ACETAMINOPHEN 650 MG/20.3 ML ORAL SOLUTION (CUPS) GT PRN (11:25)
--- NOTE | 2016-12-02 12:15 | PN ---
Physical Exam: SUBJECTIVE: Patient seen and examined. He appears at baseline. No pain behaviours. OBJECTIVE: Vital Signs Period Temp Pulse Resp BP Sys/Santiago Pulse Ox Last 24 Hr 97.3 F-98.3 F 59-89 18-20 116-139/62-93 97-97 GENERAL: appears comfortable at rest, Tolerating feeds HEAD: Normal with no signs of trauma NECK: Trach removed, site is c/d/i, no redness or drainage noted. LUNGS: Scattered rhonchi on anterior lung baeza HEART: Regular rate and rhythm, heart rate 80 - 90s ABDOMEN: peg tube LUQ - on Jevity feeds with water flushes NEUROLOGICAL: at baseline, opens eyes intermittently SKIN: Healed stage 3 on sacrum Laboratory Results - last 24 hr 12/01/16 12/01/16 12/01/16 12:31 17:36 23:21 POC Glucometer 123 153 97 12/02/16 12/02/16 06:46 11:28 POC Glucometer 137 140 Active Medications Generic Name Dose Route Start Last Admin Trade Name Freq PRN Reason Stop Dose Admin Acetaminophen 650 mg 05/26/16 14:23 12/02/16 11:25 Tylenol Oral Solution - GT 650 mg Q4H PRN Administration FEVER Amino Acids 30 ml 06/28/16 10:00 12/02/16 11:16 Prostat Sugar-Free Packet - PO 30 ml DAILY KWAKU Administration Amlodipine Besylate 10 mg 12/30/15 10:00 12/02/16 11:16 Norvasc - GT 10 mg DAILY KWAKU Administration Insulin Aspart 1 vial 09/17/16 16:30 12/02/16 11:29 Novolog Vial Sliding Scale - SQ Not Given ACHS [facility] Protocol Insulin Detemir 20 units 09/21/16 13:25 12/01/16 23:17 Levemir Vial SQ 20 units HS KWAKU Administration Lisinopril 40 mg 12/30/15 10:00 12/02/16 11:16 Prinivil GT 40 mg DAILY KWAKU Administration Metoprolol Tartrate 150 mg 11/28/16 10:00 12/02/16 11:16 Lopressor - GT 150 mg BID KWAKU Administration Multi-Ingredient Lotion 1 applic 11/07/16 11:55 Eucerin (Large Jar) - TP BID PRN DRY SKIN Multivitamins 5 ml 10/16/16 16:30 12/02/16 11:17 Thera-Plus - GT 5 ml DAILY KWAKU Administration Ranitidine HCl 150 mg 08/27/16 12:15 12/02/16 11:17 Zantac Oral Solution - PO 150 mg BID KWAKU Administration ASSESSMENT/PLAN: Patient is a 76 year old male with a past medical history of IDDM, HTN and inguinal hernia. He presented to the emergency room on 06/27/2015 with a diverticular bleed s/p right hemicolectomy. His hospitalization was further complicated with a CVA with anoxic brain injury. He is s/p trach secondary to respiratory failure. He is currently tolerating room air, no pain behaviours on exam. 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 Has respiratory failure secondary to anoxic brain injury. He is on duonebs PRN, Trach collar removed - site open to air, CDI Cardiology: Hypertension - chronic Assessment/Plan: Hypertension On Norvasc 10mg daily, Lisinopril and Lopressor 150mg BID Endocrine: Diabetes - chronic Assessment/Plan: Tight glucose coverage, Capillary glucose ac/hs Integumentary: Stage III pressure ulcers buttocks - healed Assessment/Plan: Continue Prostat daily, low score on Eliseo scale Monitor skin integrity, turn and position q2 F.E.N. NPO - all meds through GT Glucerna 70cc/hr with water flushes and 250cc free water BID via GT Prostat for treatment of pressure ulcers Functional quadraplegia Monitor for dehydration Prophylaxis: DVT: SCDs - both legs. No AC: contraindicated secondary to history of GI bleed GI Regimen: Ranitidine BID Bowel regimen: deferred - secondary to soft stools He is bed bound and a total care Code Status: Patient continues to require inpatient hospitalization. Do Not Resuscitate. Visit type - Emergency Visit Emergency Visit: Yes ED Registration Date: 06/27/15 Care time: The patient presented to the Emergency Department on the above date and was hospitalized for further evaluation of their emergent condition. - New Patient This patient is new to me today: No - Critical Care Critical Care patient: No - Discharge Referral Referred to [facility] No
[2016-12-02] MEDS: INSULIN DETEMIR 100 UNITS/ML MDV SQ SCH (23:16)
[2016-12-03] MEDS: INSULIN SLIDING SCALE (NOVOLOG) 1 VIAL SQ SCH ×4 (06:30→22:28)
--- NOTE | 2016-12-03 11:02 | PN ---
Physical Exam: SUBJECTIVE: Patient seen and examined. Appears comfortable at rest, asleep. No overnight events OBJECTIVE: Vital Signs Period Temp Pulse Resp BP Sys/Santiago Pulse Ox Last 24 Hr 97.9 F-98 F 58-82 18-20 137-147/64-82 97 GENERAL: appears comfortable at rest, Tolerating feeds HEAD: Normal with no signs of trauma NECK: Trach removed, site is c/d/i, no redness or drainage noted. LUNGS: Anterior lungs with clear lung sounds HEART: Regular rate and rhythm, heart rate 80 - 90s ABDOMEN: peg tube LUQ - on Jevity feeds with water flushes NEUROLOGICAL: at baseline, opens eyes intermittently SKIN: Healed stage 3 on sacrum Laboratory Results - last 24 hr 12/02/16 12/02/16 12/02/16 06:46 11:28 17:47 POC Glucometer 137 140 140 12/02/16 12/03/16 23:14 06:22 POC Glucometer 122 137 Active Medications Generic Name Dose Route Start Last Admin Trade Name Freq PRN Reason Stop Dose Admin Acetaminophen 650 mg 05/26/16 14:23 12/02/16 11:25 Tylenol Oral Solution - GT 650 mg Q4H PRN Administration FEVER Amino Acids 30 ml 06/28/16 10:00 12/02/16 11:16 Prostat Sugar-Free Packet - PO 30 ml DAILY KWAKU Administration Amlodipine Besylate 10 mg 12/30/15 10:00 12/02/16 11:16 Norvasc - GT 10 mg DAILY KWAKU Administration Insulin Aspart 1 vial 09/17/16 16:30 12/03/16 06:30 Novolog Vial Sliding Scale - SQ Not Given ACHS KWAKU Protocol Insulin Detemir 20 units 09/21/16 13:25 12/02/16 23:16 Levemir Vial SQ 20 units HS KWAKU Administration Lisinopril 40 mg 12/30/15 10:00 12/02/16 11:16 Prinivil GT 40 mg DAILY KWAKU Administration Metoprolol Tartrate 150 mg 11/28/16 10:00 12/02/16 23:16 Lopressor - GT 150 mg BID KWAKU Administration Multi-Ingredient Lotion 1 applic 11/07/16 11:55 Eucerin (Large Jar) - TP BID PRN DRY SKIN Multivitamins 5 ml 10/16/16 16:30 12/02/16 11:17 Thera-Plus - GT 5 ml DAILY KWAKU Administration Ranitidine HCl 150 mg 08/27/16 12:15 12/02/16 23:16 Zantac Oral Solution - PO 150 mg BID KWAKU Administration ASSESSMENT/PLAN: Patient is a 76 year old male with a past medical history of IDDM, HTN and inguinal hernia. He presented to the emergency room on 06/27/2015 with a diverticular bleed s/p right hemicolectomy. His hospitalization was further complicated with a CVA with anoxic brain injury. He is s/p trach secondary to respiratory failure. He is currently tolerating room air, no pain behaviours on exam. 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 Has respiratory failure secondary to anoxic brain injury. He is on duonebs PRN, Trach collar removed - site open to air, CDI Cardiology: Hypertension - chronic Assessment/Plan: Hypertension On Norvasc 10mg daily, Lisinopril and Lopressor 150mg BID - monitor BP and titrate meds as needed Endocrine: Diabetes - chronic Assessment/Plan: Tight glucose coverage, Capillary glucose ac/hs Integumentary: Stage III pressure ulcers buttocks - healed Assessment/Plan: Continue Prostat daily, low score on Eliseo scale Monitor skin integrity, turn and position q2 F.E.N. NPO - all meds through GT Glucerna 70cc/hr with water flushes and 250cc free water BID via GT Prostat for treatment of pressure ulcers Functional quadraplegia Monitor for dehydration Prophylaxis: DVT: SCDs - both legs. No AC: contraindicated secondary to history of GI bleed GI Regimen: Ranitidine BID Bowel regimen: deferred - secondary to soft stools He is bed bound and a total care Code Status: Patient continues to require inpatient hospitalization. Do Not Resuscitate. Visit type - Emergency Visit Emergency Visit: Yes ED Registration Date: 06/27/15 Care time: The patient presented to the Emergency Department on the above date and was hospitalized for further evaluation of their emergent condition. - New Patient This patient is new to me today: No - Critical Care Critical Care patient: No - Discharge Referral Referred to [facility] No
[2016-12-03] MEDS: AMINO ACIDS/PROTEIN HYDROLYS SUGAR-FREE 30 ML PACKET PO SCH (11:32)
[2016-12-03] MEDS: RANITIDINE HCL 150 MG/10 ML UNIT-DOSE CUP PO SCH ×2 (11:32→22:28)
[2016-12-03] MEDS: METOPROLOL TARTRATE 50 MG TABLET (FP) GT SCH ×2 (11:33→22:27)
[2016-12-03] MEDS: LISINOPRIL 20 MG TABLET (FP) GT SCH (11:33)
[2016-12-03] MEDS: MULTIVITAMINS LIQUID THERAPEUTIC 118 ML BOT GT SCH (11:33)
[2016-12-03] MEDS: amLODIPine BESYLATE 10 MG TABLET (FP) GT SCH (11:33)
[2016-12-03] MEDS: INSULIN DETEMIR 100 UNITS/ML MDV SQ SCH (22:28)
[2016-12-04] MEDS: INSULIN SLIDING SCALE (NOVOLOG) 1 VIAL SQ SCH ×4 (06:22→22:51)
[2016-12-04 06:57] LABS: BASOPHIL 0.7 % (0-2.0); EOSINOPHIL 3.1 % (0-4.5); MCH 29.9 pg (25.7-33.7); MCHC 33.6 g/dl (32.0-35.9); MEAN CELL VOLUME 88.9 fl (80-96); MEAN PLT VOLUME 10.1 fl (7.5-11.1); NEUTROPHILS 59.3 % (42.8-82.8); PLATELET COUNT 159 K/MM3 (134-434); RDW 14.4 % (11.9-15.9); WHITE BLOOD COUNT 6.8 K/mm3 (4.0-10.0)
[2016-12-04 07:23] LABS: GLUCOSE,RANDOM 123 mg/dL (74-106)
[2016-12-04 07:24] LABS: ALBUMIN 3.2 g/dl (3.4-5.0); ANION GAP 10 (8-16); CALCIUM 9.4 mg/dL (8.5-10.1); CO2 28 mmol/L (21-32)
[2016-12-04 07:26] LABS: ALK PHOS 116 U/L (45-117); BILIRUBIN,TOTAL 0.3 mg/dL (0.2-1.0); CREATININE 0.7 mg/dL (0.7-1.3); SGOT/AST 16 U/L (15-37); SGPT/ALT 32 U/L (12-78); TOT PROT 7.5 g/dl (6.4-8.2)
[2016-12-04] MEDS: amLODIPine BESYLATE 10 MG TABLET (FP) GT SCH (10:30)
[2016-12-04] MEDS: MULTIVITAMINS LIQUID THERAPEUTIC 118 ML BOT GT SCH (10:30)
[2016-12-04] MEDS: LISINOPRIL 20 MG TABLET (FP) GT SCH (10:30)
[2016-12-04] MEDS: RANITIDINE HCL 150 MG/10 ML UNIT-DOSE CUP PO SCH ×2 (10:30→21:52)
[2016-12-04] MEDS: AMINO ACIDS/PROTEIN HYDROLYS SUGAR-FREE 30 ML PACKET PO SCH (10:30)
[2016-12-04] MEDS: METOPROLOL TARTRATE 50 MG TABLET (FP) GT SCH ×2 (10:30→21:52)
--- NOTE | 2016-12-04 15:17 | PN ---
Physical Exam: SUBJECTIVE: Patient seen and examined. Appears at baseline, no acute overnight events. OBJECTIVE: Vital Signs Period Temp Pulse Resp BP Sys/Santiago Pulse Ox Last 24 Hr 97.8 F-98.7 F 63-91 18-20 138-153/60-87 95-96 GENERAL: appears comfortable at rest, Tolerating feeds HEAD: Normal with no signs of trauma NECK: Trach removed, site is c/d/i, no redness or drainage noted. LUNGS: Anterior lungs with clear lung sounds HEART: Regular rate and rhythm, heart rate 80 - 90s ABDOMEN: peg tube LUQ - on Jevity feeds with water flushes NEUROLOGICAL: at baseline, opens eyes intermittently SKIN: Healed stage 3 on sacrum Laboratory Results - last 24 hr 12/03/16 12/03/16 12/04/16 17:43 22:25 06:00 WBC 6.8 D RBC 3.90 L Hgb 11.7 Hct 34.7 L MCV 88.9 MCHC 33.6 RDW 14.4 Plt Count 159 MPV 10.1 Neutrophils % 59.3 Lymphocytes % 30.8 D Monocytes % 6.1 Eosinophils % 3.1 Basophils % 0.7 Sodium Potassium Chloride Carbon Dioxide Anion Gap BUN Creatinine Creat Clearance w eGFR POC Glucometer 77 124 Random Glucose Calcium Total Bilirubin AST ALT Alkaline Phosphatase Total Protein Albumin 12/04/16 12/04/16 12/04/16 06:00 06:21 11:18 WBC RBC Hgb Hct MCV MCHC RDW Plt Count MPV Neutrophils % Lymphocytes % Monocytes % Eosinophils % Basophils % Sodium 140 Potassium 3.6 Chloride 102 Carbon Dioxide 28 Anion Gap 10 BUN 20 H Creatinine 0.7 Creat Clearance w eGFR > 60 POC Glucometer 120 157 Random Glucose 123 H D Calcium 9.4 Total Bilirubin 0.3 AST 16 D ALT 32 D Alkaline Phosphatase 116 Total Protein 7.5 Albumin 3.2 L Active Medications Generic Name Dose Route Start Last Admin Trade Name Freq PRN Reason Stop Dose Admin Acetaminophen 650 mg 05/26/16 14:23 12/02/16 11:25 Tylenol Oral Solution - GT 650 mg Q4H PRN Administration FEVER Amino Acids 30 ml 06/28/16 10:00 12/04/16 10:30 Prostat Sugar-Free Packet - PO 30 ml DAILY KWAKU Administration Amlodipine Besylate 10 mg 12/30/15 10:00 12/04/16 10:30 Norvasc - GT 10 mg DAILY KWAKU Administration Insulin Aspart 1 vial 09/17/16 16:30 12/04/16 11:00 Novolog Vial Sliding Scale - SQ 4 units ACHS KWAKU Administration Protocol Insulin Detemir 20 units 09/21/16 13:25 12/03/16 22:28 Levemir Vial SQ 20 units HS KWAKU Administration Lisinopril 40 mg 12/30/15 10:00 12/04/16 10:30 Prinivil GT 40 mg DAILY KWAKU Administration Metoprolol Tartrate 150 mg 11/28/16 10:00 12/04/16 10:30 Lopressor - GT 150 mg BID KWAKU Administration Multi-Ingredient Lotion 1 applic 11/07/16 11:55 Eucerin (Large Jar) - TP BID PRN DRY SKIN Multivitamins 5 ml 10/16/16 16:30 12/04/16 10:30 Thera-Plus - GT 5 ml DAILY KWAKU Administration Ranitidine HCl 150 mg 08/27/16 12:15 12/04/16 10:30 Zantac Oral Solution - PO 150 mg BID KWAKU Administration ASSESSMENT/PLAN: Patient is a 76 year old male with a past medical history of IDDM, HTN and inguinal hernia. He presented to the emergency room on 06/27/2015 with a diverticular bleed s/p right hemicolectomy. His hospitalization was further complicated with a CVA with anoxic brain injury. He is s/p trach secondary to respiratory failure. He is currently tolerating room air, no pain behaviours on exam. 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 Has respiratory failure secondary to anoxic brain injury. He is on duonebs PRN, Trach collar removed - site open to air, CDI Cardiology: Hypertension - chronic Assessment/Plan: Hypertension On Norvasc 10mg daily, Lisinopril and Lopressor 150mg BID - monitor BP and titrate meds as needed Endocrine: Diabetes - chronic Assessment/Plan: Tight glucose coverage, Capillary glucose ac/hs Integumentary: Stage III pressure ulcers buttocks - healed Assessment/Plan: Continue Prostat daily, low score on Eliseo scale Monitor skin integrity, turn and position q2 F.E.N. NPO - all meds through GT Glucerna 70cc/hr with water flushes and 250cc free water BID via GT Prostat for treatment of pressure ulcers Functional quadraplegia Monitor for dehydration Prophylaxis: DVT: SCDs - both legs. No AC: contraindicated secondary to history of GI bleed GI Regimen: Ranitidine BID Bowel regimen: deferred - secondary to soft stools He is bed bound and a total care Code Status: Patient continues to require inpatient hospitalization. Do Not Resuscitate. Visit type - Emergency Visit Emergency Visit: Yes ED Registration Date: 06/27/15 Care time: The patient presented to the Emergency Department on the above date and was hospitalized for further evaluation of their emergent condition. - New Patient This patient is new to me today: No - Critical Care Critical Care patient: No - Discharge Referral Referred to [facility] No
[2016-12-04] MEDS: INSULIN DETEMIR 100 UNITS/ML MDV SQ SCH (21:52)
[2016-12-05] MEDS: INSULIN SLIDING SCALE (NOVOLOG) 1 VIAL SQ SCH ×4 (06:28→23:20)
--- NOTE | 2016-12-05 09:07 | PN ---
Physical Exam: SUBJECTIVE: Patient seen and examined. Pt is at his baseline, no overnight events. Appears comfortable at rest. FLACC pain scale "0" OBJECTIVE: Vital Signs Period Temp Pulse Resp BP Sys/Santiago Pulse Ox Last 24 Hr 98.0 F-98.9 F 59-88 18-20 138-148/79-88 96 GENERAL: appears comfortable at rest, Tolerating feeds HEAD: Normal with no signs of trauma NECK: Trach removed, site is c/d/i, no redness or drainage noted. LUNGS: Anterior lungs with scattered rhonchi HEART: Regular rate and rhythm, heart rate 80 - 90s ABDOMEN: peg tube LUQ - on Jevity feeds with water flushes NEUROLOGICAL: at baseline, opens eyes intermittently SKIN: Healed stage 3 on sacrum Laboratory Results - last 24 hr 12/04/16 12/04/16 12/04/16 11:18 17:02 21:51 POC Glucometer 157 126 124 12/05/16 06:13 POC Glucometer 126 Active Medications Generic Name Dose Route Start Last Admin Trade Name Freq PRN Reason Stop Dose Admin Acetaminophen 650 mg 05/26/16 14:23 12/02/16 11:25 Tylenol Oral Solution - GT 650 mg Q4H PRN Administration FEVER Amino Acids 30 ml 06/28/16 10:00 12/04/16 10:30 Prostat Sugar-Free Packet - PO 30 ml DAILY KWAKU Administration Amlodipine Besylate 10 mg 12/30/15 10:00 12/04/16 10:30 Norvasc - GT 10 mg DAILY KWAKU Administration Insulin Aspart 1 vial 09/17/16 16:30 12/05/16 06:28 Novolog Vial Sliding Scale - SQ Not Given ACHS [facility] Protocol Insulin Detemir 20 units 09/21/16 13:25 12/04/16 21:52 Levemir Vial SQ 20 units HS KWAKU Administration Lisinopril 40 mg 12/30/15 10:00 12/04/16 10:30 Prinivil GT 40 mg DAILY KWAKU Administration Metoprolol Tartrate 150 mg 11/28/16 10:00 12/04/16 21:52 Lopressor - GT 150 mg BID KWAKU Administration Multi-Ingredient Lotion 1 applic 11/07/16 11:55 Eucerin (Large Jar) - TP BID PRN DRY SKIN Multivitamins 5 ml 10/16/16 16:30 12/04/16 10:30 Thera-Plus - GT 5 ml DAILY KWAKU Administration Ranitidine HCl 150 mg 08/27/16 12:15 12/04/16 21:52 Zantac Oral Solution - PO 150 mg BID KWAKU Administration ASSESSMENT/PLAN: Patient is a 76 year old male with a past medical history of IDDM, HTN and inguinal hernia. He presented to the emergency room on 06/27/2015 with a diverticular bleed s/p right hemicolectomy. His hospitalization was further complicated with a CVA with anoxic brain injury. He is s/p trach secondary to respiratory failure. He is currently tolerating room air, no pain behaviours on exam. 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 Has respiratory failure secondary to anoxic brain injury. He is on duonebs PRN, Trach collar removed - site open to air, CDI Cardiology: Hypertension - chronic Assessment/Plan: Hypertension On Norvasc 10mg daily, Lisinopril and Lopressor 150mg BID - monitor BP and titrate meds as needed Endocrine: Diabetes - chronic Assessment/Plan: Tight glucose coverage, Capillary glucose ac/hs Integumentary: Stage III pressure ulcers buttocks - healed Assessment/Plan: Continue Prostat daily, low score on Eliseo scale Monitor skin integrity, turn and position q2 F.E.N. NPO - all meds through GT Glucerna with water flushes Prostat for treatment of pressure ulcers Functional quadraplegia Monitor for dehydration weekly labs Prophylaxis: DVT: SCDs - both legs. No AC: contraindicated secondary to history of GI bleed GI Regimen: Ranitidine BID Bowel regimen: deferred - secondary to soft stools He is bed bound and a total care Code Status: Patient continues to require inpatient hospitalization. Do Not Resuscitate. Visit type - Emergency Visit Emergency Visit: Yes ED Registration Date: 06/27/15 Care time: The patient presented to the Emergency Department on the above date and was hospitalized for further evaluation of their emergent condition. - New Patient This patient is new to me today: No - Critical Care Critical Care patient: No - Discharge Referral Referred to [facility] No
[2016-12-05] MEDS: RANITIDINE HCL 150 MG/10 ML UNIT-DOSE CUP PO SCH ×2 (10:44→22:44)
[2016-12-05] MEDS: MULTIVITAMINS LIQUID THERAPEUTIC 118 ML BOT GT SCH (10:45)
[2016-12-05] MEDS: AMINO ACIDS/PROTEIN HYDROLYS SUGAR-FREE 30 ML PACKET PO SCH (10:45)
[2016-12-05] MEDS: METOPROLOL TARTRATE 50 MG TABLET (FP) GT SCH ×2 (10:46→22:45)
[2016-12-05] MEDS: LISINOPRIL 20 MG TABLET (FP) GT SCH (10:46)
[2016-12-05] MEDS: amLODIPine BESYLATE 10 MG TABLET (FP) GT SCH (10:46)
[2016-12-05] MEDS: INSULIN DETEMIR 100 UNITS/ML MDV SQ SCH (22:46)
[2016-12-06] MEDS: INSULIN SLIDING SCALE (NOVOLOG) 1 VIAL SQ SCH ×4 (06:23→22:40)
--- NOTE | 2016-12-06 11:46 | PN ---
Physical Exam: SUBJECTIVE: Patient seen and examined. No acute events. OBJECTIVE: Vital Signs Period Temp Pulse Resp BP Sys/Santiago Pulse Ox Last 24 Hr 97.3 F-99.2 F 73-87 18-20 133-159/78-91 97 PE Neuro: awake, alert Pulm: Clear anteriorly, trach hole open CV: s1 s2 rrr no mrg Abd: peg tube cdi s nt nd +bs Ext: foot drop, no edema Laboratory Results - last 24 hr 12/05/16 12/05/16 12/06/16 17:40 22:43 06:15 POC Glucometer 153 130 235 Active Medications Generic Name Dose Route Start Last Admin Trade Name Freq PRN Reason Stop Dose Admin Acetaminophen 650 mg 05/26/16 14:23 12/02/16 11:25 Tylenol Oral Solution - GT 650 mg Q4H PRN Administration FEVER Amino Acids 30 ml 06/28/16 10:00 12/05/16 10:45 Prostat Sugar-Free Packet - PO 30 ml DAILY KWAKU Administration Amlodipine Besylate 10 mg 12/30/15 10:00 12/05/16 10:46 Norvasc - GT 10 mg DAILY KWAKU Administration Insulin Aspart 1 vial 09/17/16 16:30 12/06/16 06:23 Novolog Vial Sliding Scale - SQ 6 units ACHS KWAKU Administration Protocol Insulin Detemir 20 units 09/21/16 13:25 12/05/16 22:46 Levemir Vial SQ 20 units HS KWAKU Administration Lisinopril 40 mg 12/30/15 10:00 12/05/16 10:46 Prinivil GT 40 mg DAILY KWAKU Administration Metoprolol Tartrate 150 mg 11/28/16 10:00 12/05/16 22:45 Lopressor - GT 150 mg BID KWAKU Administration Multi-Ingredient Lotion 1 applic 11/07/16 11:55 Eucerin (Large Jar) - TP BID PRN DRY SKIN Multivitamins 5 ml 10/16/16 16:30 12/05/16 10:45 Thera-Plus - GT 5 ml DAILY KWAKU Administration Ranitidine HCl 150 mg 08/27/16 12:15 12/05/16 22:44 Zantac Oral Solution - PO 150 mg BID KWAKU Administration Assessment: 76 year old male with PMHx of HTN, IDDM, inguinal hernia who presented to the ED with diverticular bleed s/p Right hemicolectomy with hospital course complicated 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 Plan: 1. Anoxic brain injury s/p brainstem CVAs - Mental status unchanged 2. Respiratory failure with spontaneous breathing pauses 2/2 anoxic brain injury - Monitor for aspiration, TF increased, if secretions thicken, restart scopolomine - No therapy for pauses per pulm 3. HTN - HR controlled - Continue lopressor 150mg BID - Continue norvasc 10mg - Continue lisinopril 40mg daily 4. Multiple pressure ulcers - Daily wound care - Turn and position q2h 5. IDDM - Levemir at 20u sq qhs - ISS BGM ACHS 6. Nutrition - Increase feeds to 75 ml/hr Glucerna 1.5, 80 ml/hr water flushes - Prostat daily 7. Prophylaxis - SCDs bilaterally - No chemical AC 2/2 spontaneous gluteal bleed and severe GI bleed - Zantac BID 8. Functional quadriplegia Visit type - Emergency Visit Emergency Visit: Yes ED Registration Date: 06/27/15 Care time: The patient presented to the Emergency Department on the above date and was hospitalized for further evaluation of their emergent condition. - New Patient This patient is new to me today: No - Critical Care Critical Care patient: No
[2016-12-06] MEDS: METOPROLOL TARTRATE 50 MG TABLET (FP) GT SCH ×2 (13:22→22:40)
[2016-12-06] MEDS: amLODIPine BESYLATE 10 MG TABLET (FP) GT SCH (13:23)
[2016-12-06] MEDS: MULTIVITAMINS LIQUID THERAPEUTIC 118 ML BOT GT SCH (13:23)
[2016-12-06] MEDS: RANITIDINE HCL 150 MG/10 ML UNIT-DOSE CUP PO SCH ×2 (13:23→22:40)
[2016-12-06] MEDS: LISINOPRIL 20 MG TABLET (FP) GT SCH (13:23)
[2016-12-06] MEDS: AMINO ACIDS/PROTEIN HYDROLYS SUGAR-FREE 30 ML PACKET PO SCH (13:23)
[2016-12-06] MEDS: ACETAMINOPHEN 650 MG/20.3 ML ORAL SOLUTION (CUPS) GT PRN (13:24)
[2016-12-06] MEDS: INSULIN DETEMIR 100 UNITS/ML MDV SQ SCH (22:40)
[2016-12-07] MEDS: INSULIN SLIDING SCALE (NOVOLOG) 1 VIAL SQ SCH ×4 (06:48→22:32)
[2016-12-07] MEDS: RANITIDINE HCL 150 MG/10 ML UNIT-DOSE CUP PO SCH ×2 (10:00→22:25)
[2016-12-07] MEDS: METOPROLOL TARTRATE 50 MG TABLET (FP) GT SCH ×2 (10:00→22:25)
[2016-12-07] MEDS: AMINO ACIDS/PROTEIN HYDROLYS SUGAR-FREE 30 ML PACKET PO SCH (10:00)
[2016-12-07] MEDS: MULTIVITAMINS LIQUID THERAPEUTIC 118 ML BOT GT SCH (10:00)
[2016-12-07] MEDS: LISINOPRIL 20 MG TABLET (FP) GT SCH (10:00)
[2016-12-07] MEDS: amLODIPine BESYLATE 10 MG TABLET (FP) GT SCH (10:00)
--- NOTE | 2016-12-07 13:30 | PN ---
Progress Note (short form) - Note Progress Note: Subjective: The patient was seen and examined at the bedside, non-verbal. Tolerating room air well Current Medications Generic Name Dose Route Start Last Admin Trade Name Ginette PRN Reason Stop Dose Admin Acetaminophen 650 mg 05/26/16 14:23 12/06/16 13:24 Tylenol Oral Solution - GT 650 mg Q4H PRN Administration FEVER Amino Acids 30 ml 06/28/16 10:00 12/07/16 10:00 Prostat Sugar-Free Packet - PO 30 ml DAILY KWAKU Administration Amlodipine Besylate 10 mg 12/30/15 10:00 12/07/16 10:00 Norvasc - GT 10 mg DAILY KWAKU Administration Insulin Aspart 1 vial 09/17/16 16:30 12/07/16 11:00 Novolog Vial Sliding Scale - SQ Not Given ACHS [facility] Protocol Insulin Detemir 20 units 09/21/16 13:25 12/06/16 22:40 Levemir Vial SQ 20 units HS KWAKU Administration Lisinopril 40 mg 12/30/15 10:00 12/07/16 10:00 Prinivil GT 40 mg DAILY KWAKU Administration Metoprolol Tartrate 150 mg 11/28/16 10:00 12/07/16 10:00 Lopressor - GT 150 mg BID KWAKU Administration Multi-Ingredient Lotion 1 applic 11/07/16 11:55 Eucerin (Large Jar) - TP BID PRN DRY SKIN Multivitamins 5 ml 10/16/16 16:30 12/07/16 10:00 Thera-Plus - GT 5 ml DAILY KWAKU Administration Ranitidine HCl 150 mg 08/27/16 12:15 12/07/16 10:00 Zantac Oral Solution - PO 150 mg BID KWAKU Administration Objective: Vital Signs Period Temp Pulse Resp BP Sys/Santiago Pulse Ox Last 24 Hr 97.8 F-98.2 F 62-75 18-20 116-148/68-75 Physical Exam: General: No acute distress HEENT: Tracheal stoma Neuro: Opens eyes to verbal stimuli Pulm: CTA anteriorly CV: RRR, S1S2 Abd: Soft, non-distended. Normoactive bowel sounds. Peg tube c/d/i Ext: Warm, well-perfused. 2+ DP/PT bilaterally CBCD WBC 6.8 K/mm3 (4.0-10.0) D 12/04/16 06:00 RBC 3.90 M/mm3 (4.00-5.60) L 12/04/16 06:00 Hgb 11.7 GM/dL (11.7-16.9) 12/04/16 06:00 Hct 34.7 % (35.4-49) L 12/04/16 06:00 MCV 88.9 fl (80-96) 12/04/16 06:00 MCHC 33.6 g/dl (32.0-35.9) 12/04/16 06:00 RDW 14.4 % (11.9-15.9) 12/04/16 06:00 Plt Count 159 K/MM3 (134-434) 12/04/16 06:00 MPV 10.1 fl (7.5-11.1) 12/04/16 06:00 CMP Sodium 140 mmol/L (136-145) 12/04/16 06:00 Potassium 3.6 mmol/L (3.5-5.1) 12/04/16 06:00 Chloride 102 mmol/L (98-107) 12/04/16 06:00 Carbon Dioxide 28 mmol/L (21-32) 12/04/16 06:00 Anion Gap 10 (8-16) 12/04/16 06:00 BUN 20 mg/dL (7-18) H 12/04/16 06:00 Creatinine 0.7 mg/dL (0.7-1.3) 12/04/16 06:00 Creat Clearance w eGFR > 60 (>60) 12/04/16 06:00 Random Glucose 123 mg/dL (74-106) H D 12/04/16 06:00 Calcium 9.4 mg/dL (8.5-10.1) 12/04/16 06:00 Total Bilirubin 0.3 mg/dL (0.2-1.0) 12/04/16 06:00 AST 16 U/L (15-37) D 12/04/16 06:00 ALT 32 U/L (12-78) D 12/04/16 06:00 Alkaline Phosphatase 116 U/L (45-117) 12/04/16 06:00 Total Protein 7.5 g/dl (6.4-8.2) 12/04/16 06:00 Albumin 3.2 g/dl (3.4-5.0) L 12/04/16 06:00 CARDIAC ENZYMES Creatine Kinase 62 IU/L (38-174) 06/28/15 09:35 Troponin I 0.07 ng/ml (0.03-0.5) D 07/09/15 05:00 Assessment: 75 year old male with PMHx of HTN, IDDM, inguinal hernia who presented to the ED with diverticular bleed s/p Righ hemicolectomy with 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 Plan: 1. Anoxic brain injury s/p brainstem CVAs - Mental status unchanged 2. 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 Respiratory failure secondary to anoxic brain injury - Cont O2 via room air, NC prn - Trach removed 09/09/16 - Duonebs PRN 4. HTN - Continue lisinopril, amlodipine, lopressor 5. Multiple pressure ulcers - Turn and position q2h - Local wound care 6. IDDM - Continue Levemir at 20u sq qhs - ISS BGM ACHS 7. F/E/N: - 70 ml/hr Glucerna 1.5, 65 ml/hr water flushes - Prostat daily - Continue Zantac bid 8. Prophylaxis: - SCDs bilaterally - No chemical anticoagulation 2/2 spontaneous gluteal bleed and severe GI bleed - Functional quadriplegia CODE STATUS: DNR Visit type - Emergency Visit Emergency Visit: Yes ED Registration Date: 06/27/15 Care time: The patient presented to the Emergency Department on the above date and was hospitalized for further evaluation of their emergent condition. - New Patient This patient is new to me today: Yes Date on this admission: 12/07/16 - Critical Care Critical Care patient: No
[2016-12-07] MEDS: INSULIN DETEMIR 100 UNITS/ML MDV SQ SCH (22:25)
[2016-12-07] MEDS: ACETAMINOPHEN 650 MG/20.3 ML ORAL SOLUTION (CUPS) GT PRN (22:26)
[2016-12-08] MEDS: INSULIN SLIDING SCALE (NOVOLOG) 1 VIAL SQ SCH ×4 (06:02→22:24)
[2016-12-08] MEDS: LISINOPRIL 20 MG TABLET (FP) GT SCH (10:00)
[2016-12-08] MEDS: AMINO ACIDS/PROTEIN HYDROLYS SUGAR-FREE 30 ML PACKET PO SCH (10:00)
[2016-12-08] MEDS: amLODIPine BESYLATE 10 MG TABLET (FP) GT SCH (10:00)
[2016-12-08] MEDS: RANITIDINE HCL 150 MG/10 ML UNIT-DOSE CUP PO SCH ×2 (10:00→22:25)
[2016-12-08] MEDS: MULTIVITAMINS LIQUID THERAPEUTIC 118 ML BOT GT SCH (10:00)
[2016-12-08] MEDS: METOPROLOL TARTRATE 50 MG TABLET (FP) GT SCH ×2 (10:00→22:24)
--- NOTE | 2016-12-08 13:32 | DS ---
Physical Exam: SUBJECTIVE: Patient seen and examined OBJECTIVE: Vital Signs Period Temp Pulse Resp BP Sys/Santiago Pulse Ox Last 24 Hr 98 F-98.5 F 66-97 18-20 127-150/64-92 97 PHYSICAL EXAM GENERAL: The patient is awake, alert, and fully oriented, in no acute distress. HEAD: Normal with no signs of trauma. EYES: PERRL, extraocular movements intact, sclera anicteric, conjunctiva clear. ENT: Ears normal, nares patent, oropharynx clear without exudates, moist mucous membranes. NECK: Trachea midline, full range of motion, supple. LUNGS: Breath sounds equal, clear to auscultation bilaterally, no wheezes, no crackles, no accessory muscle use. HEART: Regular rate and rhythm, S1, S2 without murmur, rub or gallop. ABDOMEN: Soft, nontender, nondistended, normoactive bowel sounds, no guarding, no rebound, no hepatosplenomegaly, no masses. EXTREMITIES: 2+ pulses, warm, well-perfused, no edema. NEUROLOGICAL: Cranial nerves II through XII grossly intact. Normal speech, gait not observed. PSYCH: Normal mood, normal affect. SKIN: Warm, dry, normal turgor, no rashes or lesions noted. LABS Laboratory Results - last 24 hr 12/07/16 12/07/16 12/07/16 12:03 17:02 22:27 POC Glucometer 127 183 154 12/08/16 12/08/16 04:48 11:09 POC Glucometer 150 142 HOSPITAL COURSE: Date of Admission:06/27/15 Date of Discharge: 12/08/16 Discharge Summary Reason For Visit: LOWER GASTROINTESTINAL HEMORRHAGE Current Active Problems Acute blood loss anemia (Acute) Acute brainstem infarction (Acute) Anoxic brain damage (Acute) C. difficile colitis (Acute) CKD (chronic kidney disease) (Acute) CVA (cerebral vascular accident) (Acute) Diabetes (Acute) Dysphagia (Acute) Fever (Acute) H/O right hemicolectomy (Acute) Hypertension (Acute) Iliac artery bleed (Acute) Lower GI bleed (Acute) Pneumonia (Acute) Respirator dependent (Acute) Respiratory failure (Acute) Sacral decubitus ulcer, stage II (Acute) Tracheostomy dependent (Acute) Condition: Guarded - Instructions Referrals: STAFF,NOT ON [Primary Care Provider] - Disposition: SAP - Home Medications Comprehensive Discharge Medication List: Ambulatory Orders Amino Acids/Protein Hydrolys [Prostat Sugar-Free Packet -] 30 ml GT DAILY packet 08/09/15 Amlodipine Besylate [Norvasc -] 10 mg GT DAILY tablet 08/09/15 Chlorhexidine Gluconate [Peridex -] 15 ml MM BID cup 08/09/15 Insulin (Levemir) [Levemir Flexpen -] 25 units SQ HS pen 08/09/15 Insulin (Novolog) [Novolog Flexpen -] 3 units SQ Q6HPO pen 08/09/15 Insulin Sliding Scale [Novolog Vial Sliding Scale -] 0 units SQ Q6HPO pen 08/09 Lisinopril [Prinivil] 20 mg GT DAILY tablet 08/09/15 Metoprolol Tartrate Injection [Lopressor Injection -] 5 mg IVPB Q6H PRN #0 vial 08/09/15 Metoprolol Tartrate [Lopressor -] 100 mg GT BID tablet 08/09/15 Ondansetron Injection [Zofran Injection] 4 mg IVPB Q6H PRN #0 vial 08/09/15 Pantoprazole Suspension [Protonix Packets For Oral Suspension -] 40 mg GT DAILY packet 08/09/15 Vancomycin Oral Solution 125 mg GT Q6HPO ml 08/09/15 - Discharge Referral Referred to [facility] No
--- NOTE | 2016-12-08 13:34 | PN ---
Physical Exam: SUBJECTIVE: Patient seen and examined. He appeared at his baseline. No pain behaviours on exam. OBJECTIVE: GENERAL: appears comfortable at rest, Tolerating feeds HEAD: Normal with no signs of trauma NECK: Trach removed, site is c/d/i, no redness or drainage noted. LUNGS: Anterior lungs with scattered rhonchi HEART: Regular rate and rhythm, heart rate 80 - 90s ABDOMEN: peg tube LUQ - on Jevity feeds with water flushes NEUROLOGICAL: at baseline, opens eyes intermittently SKIN: Healed stage 3 on sacrum Vital Signs Period Temp Pulse Resp BP Sys/Santiago Pulse Ox Last 24 Hr 98 F-98.5 F 66-97 18-20 127-150/64-92 97 Laboratory Results - last 24 hr 12/07/16 12/07/16 12/07/16 12:03 17:02 22:27 POC Glucometer 127 183 154 12/08/16 12/08/16 04:48 11:09 POC Glucometer 150 142 Active Medications Generic Name Dose Route Start Last Admin Trade Name Freq PRN Reason Stop Dose Admin Acetaminophen 650 mg 05/26/16 14:23 12/07/16 22:26 Tylenol Oral Solution - GT 650 mg Q4H PRN Administration FEVER Amino Acids 30 ml 06/28/16 10:00 12/08/16 10:00 Prostat Sugar-Free Packet - PO 30 ml DAILY KWAKU Administration Amlodipine Besylate 10 mg 12/30/15 10:00 12/08/16 10:00 Norvasc - GT 10 mg DAILY KWAKU Administration Insulin Aspart 1 vial 09/17/16 16:30 12/08/16 11:33 Novolog Vial Sliding Scale - SQ Not Given ACHS [facility] Protocol Insulin Detemir 20 units 09/21/16 13:25 12/07/16 22:25 Levemir Vial SQ 20 units HS KWAKU Administration Lisinopril 40 mg 12/30/15 10:00 12/08/16 10:00 Prinivil GT 40 mg DAILY KWAKU Administration Metoprolol Tartrate 150 mg 11/28/16 10:00 12/08/16 10:00 Lopressor - GT 150 mg BID KWAKU Administration Multi-Ingredient Lotion 1 applic 11/07/16 11:55 Eucerin (Large Jar) - TP BID PRN DRY SKIN Multivitamins 5 ml 10/16/16 16:30 12/08/16 10:00 Thera-Plus - GT 5 ml DAILY KWAKU Administration Ranitidine HCl 150 mg 08/27/16 12:15 12/08/16 10:00 Zantac Oral Solution - PO 150 mg BID KWAKU Administration ASSESSMENT/PLAN: Patient is a 76 year old male with a past medical history of IDDM, HTN and inguinal hernia. He presented to the emergency room on 06/27/2015 with a diverticular bleed s/p right hemicolectomy. His hospitalization was further complicated with a CVA with anoxic brain injury. He is s/p trach secondary to respiratory failure. He is currently tolerating room air, no pain behaviours on exam. ID: Fevers - resolved remains afebrile Vitals are stable Neurology: Sleep apnea Assessment/Plan: Breathing a regular rate, no pauses reported reported oxygen saturations on room air stable Monitor oxygen levels, nasal cannula as needed Anoxic brain injury s/p brainstem CVA - at baseline Assessment/Plan: Mental status at baseline Functional quadriplegia secondary to anoxic brain injury Assessment/Plan: Requires total care, on continuous feeds Requires 24 hour care Pulmonary: Respiratory failure secondary to anoxic brain injury - resolved Assessment/Plan: Tolerating room air. He is on duonebs PRN, Trach collar removed - site open to air, CDI Cardiology: Hypertension - chronic Assessment/Plan: Hypertension controlled on Norvasc 10mg daily and Lopressor 150mg BID Endocrine: Diabetes - chronic Assessment/Plan: Tight glucose coverage, Capillary glucose ac/hs Integumentary: Stage III pressure ulcers buttocks - healed Assessment/Plan: Continue Prostat daily, low score on Eliseo scale Monitor skin integrity, turn and position q2 F.E.N. NPO - all meds through GT Glucerna continuous feeds with water flushes Prostat for treatment of pressure ulcers Functional quadraplegia Monitor for dehydration Prophylaxis: DVT: SCDs - both legs. No AC: contraindicated secondary to history of GI bleed GI Regimen: Ranitidine BID Bowel regimen: deferred - secondary to soft stools He is bed bound and a total care Code Status: Patient continues to require inpatient hospitalization. Do Not Resuscitate. Visit type - Emergency Visit Emergency Visit: Yes ED Registration Date: 06/27/15 Care time: The patient presented to the Emergency Department on the above date and was hospitalized for further evaluation of their emergent condition. - New Patient This patient is new to me today: No - Critical Care Critical Care patient: No - Discharge Referral Referred to [facility] No
[2016-12-08] MEDS: INSULIN DETEMIR 100 UNITS/ML MDV SQ SCH (22:23)
[2016-12-09] MEDS: ACETAMINOPHEN 650 MG/20.3 ML ORAL SOLUTION (CUPS) GT PRN (04:51)
[2016-12-09] MEDS: INSULIN SLIDING SCALE (NOVOLOG) 1 VIAL SQ SCH ×4 (06:21→21:59)
[2016-12-09] MEDS: METOPROLOL TARTRATE 50 MG TABLET (FP) GT SCH ×2 (10:56→22:01)
[2016-12-09] MEDS: AMINO ACIDS/PROTEIN HYDROLYS SUGAR-FREE 30 ML PACKET PO SCH (10:56)
[2016-12-09] MEDS: RANITIDINE HCL 150 MG/10 ML UNIT-DOSE CUP PO SCH ×2 (10:56→22:02)
[2016-12-09] MEDS: LISINOPRIL 20 MG TABLET (FP) GT SCH (10:56)
[2016-12-09] MEDS: amLODIPine BESYLATE 10 MG TABLET (FP) GT SCH (10:56)
[2016-12-09] MEDS: MULTIVITAMINS LIQUID THERAPEUTIC 118 ML BOT GT SCH (10:57)
--- NOTE | 2016-12-09 11:29 | PN ---
Physical Exam: SUBJECTIVE: Patient seen and examined. Appears at his baseline, no overnight events. Appears comfortable at rest. FLACC pain scale 0. OBJECTIVE: Vital Signs Period Temp Pulse Resp BP Sys/Santiago Pulse Ox Last 24 Hr 97.8 F-99.3 F 74-100 18-20 133-155/73-89 97 GENERAL: appears comfortable at rest, Tolerating feeds HEAD: Normal with no signs of trauma NECK: Trach removed, site is c/d/i, no redness or drainage noted. LUNGS: Anterior lungs with scattered rhonchi HEART: Regular rate and rhythm, heart rate 80 - 90s ABDOMEN: peg tube LUQ - on Jevity feeds with water flushes NEUROLOGICAL: at baseline, opens eyes intermittently SKIN: Healed stage 3 on sacrum Laboratory Results - last 24 hr 12/08/16 12/08/16 12/08/16 11:09 16:41 20:59 POC Glucometer 142 162 143 12/09/16 06:03 POC Glucometer 194 Active Medications Generic Name Dose Route Start Last Admin Trade Name Freq PRN Reason Stop Dose Admin Acetaminophen 650 mg 05/26/16 14:23 12/09/16 04:51 Tylenol Oral Solution - GT 650 mg Q4H PRN Administration FEVER Amino Acids 30 ml 06/28/16 10:00 12/09/16 10:56 Prostat Sugar-Free Packet - PO 30 ml DAILY KWAKU Administration Amlodipine Besylate 10 mg 12/30/15 10:00 12/09/16 10:56 Norvasc - GT 10 mg DAILY KWAKU Administration Insulin Aspart 1 vial 09/17/16 16:30 12/09/16 06:21 Novolog Vial Sliding Scale - SQ 4 units ACHS KWAKU Administration Protocol Insulin Detemir 20 units 09/21/16 13:25 12/08/16 22:23 Levemir Vial SQ 20 units HS KWAKU Administration Lisinopril 40 mg 12/30/15 10:00 12/09/16 10:56 Prinivil GT 40 mg DAILY KWAKU Administration Metoprolol Tartrate 150 mg 11/28/16 10:00 12/09/16 10:56 Lopressor - GT 150 mg BID KWAKU Administration Multi-Ingredient Lotion 1 applic 11/07/16 11:55 Eucerin (Large Jar) - TP BID PRN DRY SKIN Multivitamins 5 ml 10/16/16 16:30 12/09/16 10:57 Thera-Plus - GT 5 ml DAILY KWAKU Administration Ranitidine HCl 150 mg 08/27/16 12:15 12/09/16 10:56 Zantac Oral Solution - PO 150 mg BID KWAKU Administration ASSESSMENT/PLAN: Patient is a 76 year old male with a past medical history of IDDM, HTN and inguinal hernia. He presented to the emergency room on 06/27/2015 with a diverticular bleed s/p right hemicolectomy. His hospitalization was further complicated with a CVA with anoxic brain injury. He is s/p trach secondary to respiratory failure. He is currently tolerating room air, no pain behaviours on exam. Neurology: Anoxic brain injury s/p brainstem CVA - at baseline Assessment/Plan: Mental status at baseline Functional quadriplegia secondary to anoxic brain injury Assessment/Plan: Requires total care, on continuous feeds Requires 24 hour care Pulmonary: Respiratory failure secondary to anoxic brain injury - resolved Assessment/Plan: Tolerating room air. He is on duonebs PRN, Trach collar removed - site open to air, CDI Cardiology: Hypertension - chronic Assessment/Plan: Hypertension controlled on Norvasc 10mg daily and Lopressor 150mg BID Endocrine: Diabetes - chronic Assessment/Plan: Tight glucose coverage, Capillary glucose ac/hs Integumentary: Stage III pressure ulcers buttocks - healed Assessment/Plan: Continue Prostat daily, low score on Eliseo scale Monitor skin integrity, turn and position q2 F.E.N. NPO - all meds through GT Glucerna continuous feeds with water flushes Prostat for treatment of pressure ulcers Functional quadraplegia Monitor for dehydration Prophylaxis: DVT: SCDs - both legs. No AC: contraindicated secondary to history of GI bleed GI Regimen: Ranitidine BID Bowel regimen: deferred - secondary to soft stools He is bed bound and a total care Code Status: Patient continues to require inpatient hospitalization. Do Not Resuscitate. Visit type - Emergency Visit Emergency Visit: Yes ED Registration Date: 06/27/15 Care time: The patient presented to the Emergency Department on the above date and was hospitalized for further evaluation of their emergent condition. - New Patient This patient is new to me today: No - Critical Care Critical Care patient: No - Discharge Referral Referred to [facility] No
[2016-12-09] MEDS: INSULIN DETEMIR 100 UNITS/ML MDV SQ SCH (22:01)
[2016-12-10] MEDS: INSULIN SLIDING SCALE (NOVOLOG) 1 VIAL SQ SCH ×4 (10:20→22:00)
[2016-12-10] MEDS: AMINO ACIDS/PROTEIN HYDROLYS SUGAR-FREE 30 ML PACKET PO SCH (10:46)
[2016-12-10] MEDS: METOPROLOL TARTRATE 50 MG TABLET (FP) GT SCH ×2 (10:46→23:21)
[2016-12-10] MEDS: amLODIPine BESYLATE 10 MG TABLET (FP) GT SCH (10:46)
[2016-12-10] MEDS: MULTIVITAMINS LIQUID THERAPEUTIC 118 ML BOT GT SCH (10:47)
[2016-12-10] MEDS: LISINOPRIL 20 MG TABLET (FP) GT SCH (10:47)
[2016-12-10] MEDS: RANITIDINE HCL 150 MG/10 ML UNIT-DOSE CUP PO SCH ×2 (10:47→23:21)
--- NOTE | 2016-12-10 10:51 | PN ---
Physical Exam: SUBJECTIVE: Patient seen and examined. Non verbal at baseline, had to be suctioned a few times yesterday and today will restart scopolamine patch OBJECTIVE: Vital Signs Period Temp Pulse Resp BP Sys/Santiago Pulse Ox Last 24 Hr 97.8 F-98.7 F 65-100 18-20 140-159/79-93 97 GENERAL: appears comfortable at rest, Tolerating feeds HEAD: Normal with no signs of trauma NECK: Trach removed, site is c/d/i, no redness or drainage noted. LUNGS: Anterior lungs with scattered rhonchi HEART: Regular rate and rhythm, heart rate 80 - 90s ABDOMEN: peg tube LUQ - on Jevity feeds with water flushes NEUROLOGICAL: at baseline, opens eyes intermittently SKIN: Healed stage 3 on sacrum Laboratory Results - last 24 hr 12/09/16 12/09/16 12/09/16 11:55 17:31 21:59 POC Glucometer 157 150 144 12/10/16 05:50 POC Glucometer 146 Active Medications Generic Name Dose Route Start Last Admin Trade Name Freq PRN Reason Stop Dose Admin Acetaminophen 650 mg 05/26/16 14:23 12/09/16 04:51 Tylenol Oral Solution - GT 650 mg Q4H PRN Administration FEVER Amino Acids 30 ml 06/28/16 10:00 12/10/16 10:46 Prostat Sugar-Free Packet - PO 30 ml DAILY KWAKU Administration Amlodipine Besylate 10 mg 12/30/15 10:00 12/10/16 10:46 Norvasc - GT 10 mg DAILY KWAKU Administration Insulin Aspart 1 vial 09/17/16 16:30 12/10/16 10:20 Novolog Vial Sliding Scale - SQ Not Given ACHS [facility] Protocol Insulin Detemir 20 units 09/21/16 13:25 12/09/16 22:01 Levemir Vial SQ 20 units HS KWAKU Administration Lisinopril 40 mg 12/30/15 10:00 12/10/16 10:47 Prinivil GT 40 mg DAILY KWAKU Administration Metoprolol Tartrate 150 mg 11/28/16 10:00 12/10/16 10:46 Lopressor - GT 150 mg BID KWAKU Administration Multi-Ingredient Lotion 1 applic 11/07/16 11:55 Eucerin (Large Jar) - TP BID PRN DRY SKIN Multivitamins 5 ml 10/16/16 16:30 12/10/16 10:47 Thera-Plus - GT 5 ml DAILY KWAKU Administration Ranitidine HCl 150 mg 08/27/16 12:15 12/10/16 10:47 Zantac Oral Solution - PO 150 mg BID KWAKU Administration ASSESSMENT/PLAN: Patient is a 76 year old male with a past medical history of IDDM, HTN and inguinal hernia. He presented to the emergency room on 06/27/2015 with a diverticular bleed s/p right hemicolectomy. His hospitalization was further complicated with a CVA with anoxic brain injury. He is s/p trach secondary to respiratory failure. He is currently tolerating room air, no pain behaviours on exam. Neurology: Anoxic brain injury s/p brainstem CVA - at baseline Assessment/Plan: Mental status at baseline Functional quadriplegia secondary to anoxic brain injury Assessment/Plan: Requires total care, on continuous feeds Requires 24 hour care Pulmonary: Respiratory failure secondary to anoxic brain injury - resolved Assessment/Plan: Tolerating room air - noted to be congested on anteriorly, suctioned overnight In no acute distress, will re-start scopolamine patches On duonebs PRN, Trach collar removed - site open to air, CDI Cardiology: Hypertension - chronic Assessment/Plan: Hypertension controlled on Norvasc 10mg daily and Lopressor 150mg BID Endocrine: Diabetes - chronic Assessment/Plan: Tight glucose coverage, Capillary glucose ac/hs Integumentary: Stage III pressure ulcers buttocks - healed Assessment/Plan: Continue Prostat daily, low score on Eliseo scale Monitor skin integrity, turn and position q2 F.E.N. NPO - all meds through GT Glucerna continuous feeds with water flushes Prostat for treatment of pressure ulcers Functional quadraplegia Monitor for dehydration Prophylaxis: DVT: SCDs - both legs. No AC: contraindicated secondary to history of GI bleed GI Regimen: Ranitidine BID Bowel regimen: deferred - secondary to soft stools He is bed bound and a total care Code Status: Patient continues to require inpatient hospitalization. Do Not Resuscitate. Visit type - Emergency Visit Emergency Visit: Yes ED Registration Date: 06/27/15 Care time: The patient presented to the Emergency Department on the above date and was hospitalized for further evaluation of their emergent condition. - New Patient This patient is new to me today: No - Critical Care Critical Care patient: No - Discharge Referral Referred to [facility] No
[2016-12-10] MEDS: SCOPOLAMINE HYDROBROMIDE 1 PATCH PATCH.TD72 TD SCH (18:21)
[2016-12-10] MEDS: INSULIN DETEMIR 100 UNITS/ML MDV SQ SCH (22:01)
[2016-12-11] MEDS: INSULIN SLIDING SCALE (NOVOLOG) 1 VIAL SQ SCH ×4 (06:20→23:05)
[2016-12-11 07:44] LABS: BASOPHIL 0.7 % (0-2.0); EOSINOPHIL 3.2 % (0-4.5); MCH 29.9 pg (25.7-33.7); MCHC 33.9 g/dl (32.0-35.9); MEAN CELL VOLUME 88.2 fl (80-96); MEAN PLT VOLUME 9.5 fl (7.5-11.1); NEUTROPHILS 66.9 % (42.8-82.8); PLATELET COUNT 194 K/MM3 (134-434); RDW 14.2 % (11.9-15.9); WHITE BLOOD COUNT 9.1 K/mm3 (4.0-10.0)
[2016-12-11 08:19] LABS: ALBUMIN 3.4 g/dl (3.4-5.0); ALK PHOS 129 U/L (45-117); ANION GAP 10 (8-16); BILIRUBIN,TOTAL 0.3 mg/dL (0.2-1.0); CALCIUM 9.5 mg/dL (8.5-10.1); CO2 29 mmol/L (21-32); CREATININE 0.8 mg/dL (0.7-1.3); GLUCOSE,RANDOM 96 mg/dL (74-106); SGOT/AST 20 U/L (15-37); SGPT/ALT 33 U/L (12-78); TOT PROT 7.5 g/dl (6.4-8.2)
[2016-12-11] MEDS: METOPROLOL TARTRATE 50 MG TABLET (FP) GT SCH ×2 (10:58→23:12)
[2016-12-11] MEDS: LISINOPRIL 20 MG TABLET (FP) GT SCH (10:59)
[2016-12-11] MEDS: amLODIPine BESYLATE 10 MG TABLET (FP) GT SCH (10:59)
[2016-12-11] MEDS: AMINO ACIDS/PROTEIN HYDROLYS SUGAR-FREE 30 ML PACKET PO SCH (11:00)
[2016-12-11] MEDS: RANITIDINE HCL 150 MG/10 ML UNIT-DOSE CUP PO SCH ×2 (11:00→23:12)
[2016-12-11] MEDS: MULTIVITAMINS LIQUID THERAPEUTIC 118 ML BOT GT SCH (11:02)
--- NOTE | 2016-12-11 14:37 | PN ---
Physical Exam: SUBJECTIVE: Patient seen and examined. He was asleep during my exam, appeared comfortable. A 2 second breathing pause was noted on exam while patient was asleep. OBJECTIVE: GENERAL: Asleep, appears comfortable at rest, Tolerating feeds HEAD: Normal with no signs of trauma NECK: Trach removed, site is c/d/i, no redness or drainage noted. LUNGS: Anterior lungs with scattered rhonchi HEART: Regular rate and rhythm, heart rate 80 - 90s ABDOMEN: peg tube LUQ - on Jevity feeds with water flushes NEUROLOGICAL: at baseline, opens eyes intermittently SKIN: Healed stage 3 on sacrum Vital Signs Period Temp Pulse Resp BP Sys/Santiago Pulse Ox Last 24 Hr 97.8 F-98.6 F 64-88 20-20 119-137/65-82 95-96 Laboratory Results - last 24 hr 12/10/16 12/10/16 12/11/16 17:25 21:58 06:16 WBC RBC Hgb Hct MCV MCHC RDW Plt Count MPV Neutrophils % Lymphocytes % Monocytes % Eosinophils % Basophils % Sodium Potassium Chloride Carbon Dioxide Anion Gap BUN Creatinine Creat Clearance w eGFR POC Glucometer 156 149 111 Random Glucose Calcium Total Bilirubin AST ALT Alkaline Phosphatase Total Protein Albumin 12/11/16 12/11/16 06:50 06:50 WBC 9.1 D RBC 3.99 L Hgb 11.9 Hct 35.2 L MCV 88.2 MCHC 33.9 RDW 14.2 Plt Count 194 D MPV 9.5 Neutrophils % 66.9 Lymphocytes % 24.1 D Monocytes % 5.1 Eosinophils % 3.2 Basophils % 0.7 Sodium 140 Potassium 3.6 Chloride 101 Carbon Dioxide 29 Anion Gap 10 BUN 23 H Creatinine 0.8 Creat Clearance w eGFR > 60 POC Glucometer Random Glucose 96 D Calcium 9.5 Total Bilirubin 0.3 AST 20 D ALT 33 Alkaline Phosphatase 129 H Total Protein 7.5 Albumin 3.4 Active Medications Generic Name Dose Route Start Last Admin Trade Name Freq PRN Reason Stop Dose Admin Acetaminophen 650 mg 05/26/16 14:23 12/09/16 04:51 Tylenol Oral Solution - GT 650 mg Q4H PRN Administration FEVER Amino Acids 30 ml 06/28/16 10:00 12/11/16 11:00 Prostat Sugar-Free Packet - PO 30 ml DAILY KWAKU Administration Amlodipine Besylate 10 mg 12/30/15 10:00 12/11/16 10:59 Norvasc - GT 10 mg DAILY KWAKU Administration Insulin Aspart 1 vial 09/17/16 16:30 12/11/16 11:00 Novolog Vial Sliding Scale - SQ 4 units ACHS KWAKU Administration Protocol Insulin Detemir 20 units 09/21/16 13:25 12/10/16 22:01 Levemir Vial SQ 20 units HS KWAKU Administration Lisinopril 40 mg 12/30/15 10:00 12/11/16 10:59 Prinivil GT 40 mg DAILY KWAKU Administration Metoprolol Tartrate 150 mg 11/28/16 10:00 12/11/16 10:58 Lopressor - GT 150 mg BID KWAKU Administration Multi-Ingredient Lotion 1 applic 11/07/16 11:55 Eucerin (Large Jar) - TP BID PRN DRY SKIN Multivitamins 5 ml 10/16/16 16:30 12/11/16 11:02 Thera-Plus - GT 5 ml DAILY KWAKU Administration Ranitidine HCl 150 mg 08/27/16 12:15 12/11/16 11:00 Zantac Oral Solution - PO 150 mg BID KWAKU Administration Scopolamine HBr 1 patch 12/10/16 11:00 12/10/16 18:21 Transderm-Scop - TD 1 patch Q72H KWAKU Administration ASSESSMENT/PLAN: Patient is a 76 year old male with a past medical history of IDDM, HTN and inguinal hernia. He presented to the emergency room on 06/27/2015 with a diverticular bleed s/p right hemicolectomy. His hospitalization was further complicated with a CVA with anoxic brain injury. He is s/p trach secondary to respiratory failure. He is currently tolerating room air, no pain behaviours on exam. Neurology: Sleep apnea - likely chronic Assessment/Plan: Noted patient to have an 2 second pause while asleep oxygen saturations on room air stable Can wear oxygen as needed, but none required at this time Monitor oxygen levels, nasal cannula as needed Anoxic brain injury s/p brainstem CVA - at baseline Assessment/Plan: Mental status at baseline Functional quadriplegia secondary to anoxic brain injury Assessment/Plan: Requires total care, on continuous feeds He is unable to participate in any activities of daily living -requires 24 hour care Pulmonary: Respiratory failure secondary to anoxic brain injury - resolved Assessment/Plan: Tolerating room air. Has respiratory failure secondary to anoxic brain injury. He is on duonebs PRN, Trach collar removed - site open to air, CDI Cardiology: Hypertension - chronic Assessment/Plan: Hypertension On Norvasc 10mg daily, Lisinopril and Lopressor 150mg BID Endocrine: Diabetes - chronic Assessment/Plan: Tight glucose coverage, Capillary glucose ac/hs Integumentary: Stage III pressure ulcers buttocks - healed Assessment/Plan: Continue Prostat daily, low score on Eliseo scale Monitor skin integrity, turn and position q2 F.E.N. NPO - all meds through GT Glucerna 70cc/hr with water flushes and 250cc free water BID via GT Prostat for treatment of pressure ulcers Functional quadraplegia Monitor for dehydration Prophylaxis: DVT: SCDs - both legs. No AC: contraindicated secondary to history of GI bleed GI Regimen: Ranitidine BID Bowel regimen: deferred - secondary to soft stools He is bed bound and a total care Code Status: Patient continues to require Visit type - Emergency Visit Emergency Visit: Yes ED Registration Date: 06/27/15 Care time: The patient presented to the Emergency Department on the above date and was hospitalized for further evaluation of their emergent condition. - New Patient This patient is new to me today: No - Critical Care Critical Care patient: No - Discharge Referral Referred to [facility] No
[2016-12-11] MEDS: ACETAMINOPHEN 650 MG/20.3 ML ORAL SOLUTION (CUPS) GT PRN (23:12)
[2016-12-11] MEDS: INSULIN DETEMIR 100 UNITS/ML MDV SQ SCH (23:26)
[2016-12-12] MEDS: INSULIN SLIDING SCALE (NOVOLOG) 1 VIAL SQ SCH ×4 (06:44→21:43)
[2016-12-12] MEDS: LISINOPRIL 20 MG TABLET (FP) GT SCH (12:04)
[2016-12-12] MEDS: METOPROLOL TARTRATE 50 MG TABLET (FP) GT SCH ×2 (12:04→21:43)
[2016-12-12] MEDS: AMINO ACIDS/PROTEIN HYDROLYS SUGAR-FREE 30 ML PACKET PO SCH (12:05)
[2016-12-12] MEDS: RANITIDINE HCL 150 MG/10 ML UNIT-DOSE CUP PO SCH ×2 (12:05→21:44)
[2016-12-12] MEDS: amLODIPine BESYLATE 10 MG TABLET (FP) GT SCH (12:05)
[2016-12-12] MEDS: MULTIVITAMINS LIQUID THERAPEUTIC 118 ML BOT GT SCH (12:13)
--- NOTE | 2016-12-12 13:27 | PN ---
Physical Exam: SUBJECTIVE: Patient seen and examined. Patient was awake, non verbal at baseline, and in no acute distress. Tolerating feeds. Low grade temps overnight. Non toxic appearing, monitor. OBJECTIVE: Vital Signs Period Temp Pulse Resp BP Sys/Santiago Pulse Ox Last 24 Hr 97.2 F-99.7 F 64-80 20-20 119-136/60-84 100 GENERAL: Asleep, is awake, comfortable at rest, Tolerating feeds HEAD: Normal with no signs of trauma NECK: Trach removed, site is c/d/i, no redness or drainage noted. LUNGS: Anterior lungs with scattered rhonchi HEART: Regular rate and rhythm, heart rate 80 - 90s ABDOMEN: peg tube LUQ - on Jevity feeds with water flushes NEUROLOGICAL: at baseline, opens eyes intermittently SKIN: Healed stage 3 on sacrum Laboratory Results - last 24 hr 12/11/16 12/11/16 12/11/16 10:56 17:13 21:24 POC Glucometer 152 140 130 12/12/16 06:38 POC Glucometer 126 Active Medications Generic Name Dose Route Start Last Admin Trade Name Freq PRN Reason Stop Dose Admin Acetaminophen 650 mg 05/26/16 14:23 12/11/16 23:12 Tylenol Oral Solution - GT 650 mg Q4H PRN Administration FEVER Amino Acids 30 ml 06/28/16 10:00 12/12/16 12:05 Prostat Sugar-Free Packet - PO 30 ml DAILY KWAKU Administration Amlodipine Besylate 10 mg 12/30/15 10:00 12/12/16 12:05 Norvasc - GT 10 mg DAILY KWAKU Administration Insulin Aspart 1 vial 09/17/16 16:30 12/12/16 12:37 Novolog Vial Sliding Scale - SQ 4 units ACHS KWAKU Administration Protocol Insulin Detemir 20 units 09/21/16 13:25 12/11/16 23:26 Levemir Vial SQ 20 units HS KWAKU Administration Lisinopril 40 mg 12/30/15 10:00 12/12/16 12:04 Prinivil GT 40 mg DAILY KWAKU Administration Metoprolol Tartrate 150 mg 11/28/16 10:00 12/12/16 12:04 Lopressor - GT 150 mg BID KWAKU Administration Multi-Ingredient Lotion 1 applic 11/07/16 11:55 Eucerin (Large Jar) - TP BID PRN DRY SKIN Multivitamins 5 ml 10/16/16 16:30 12/12/16 12:13 Thera-Plus - GT 5 ml DAILY KWAKU Administration Ranitidine HCl 150 mg 08/27/16 12:15 12/12/16 12:05 Zantac Oral Solution - PO 150 mg BID KWAKU Administration Scopolamine HBr 1 patch 12/10/16 11:00 12/10/16 18:21 Transderm-Scop - TD 1 patch Q72H KWAKU Administration ASSESSMENT/PLAN: Patient is a 76 year old male with a past medical history of IDDM, HTN and inguinal hernia. He presented to the emergency room on 06/27/2015 with a diverticular bleed s/p right hemicolectomy. His hospitalization was further complicated with a CVA with anoxic brain injury. He is s/p trach secondary to respiratory failure. He is currently tolerating room air, no pain behaviours on exam. 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 Cardiology: Hypertension - chronic Assessment/Plan: Hypertension On Norvasc 10mg daily, Lisinopril and Lopressor 150mg BID Endocrine: Diabetes - chronic Assessment/Plan: Tight glycemic control, Capillary glucose ac/hs Integumentary: Stage III pressure ulcers buttocks - healed Assessment/Plan: Continue Prostat daily, low score on Eliseo scale Monitor skin integrity, turn and position q2 F.E.N. NPO - all meds through GT Glucerna 70cc/hr with water flushes and 250cc free water BID via GT Prostat for treatment of pressure ulcers Functional quadraplegia Monitor for dehydration Prophylaxis: DVT: SCDs - both legs. No AC: contraindicated secondary to history of GI bleed GI Regimen: Ranitidine BID Bowel regimen: deferred - secondary to soft stools He is bed bound and a total care Code Status: Patient continues to require inpatient care. DNR. Visit type - Emergency Visit Emergency Visit: Yes ED Registration Date: 06/27/15 Care time: The patient presented to the Emergency Department on the above date and was hospitalized for further evaluation of their emergent condition. - New Patient This patient is new to me today: No - Critical Care Critical Care patient: No - Discharge Referral Referred to [facility] No
[2016-12-12] MEDS: INSULIN DETEMIR 100 UNITS/ML MDV SQ SCH (21:43)
[2016-12-13] MEDS: INSULIN SLIDING SCALE (NOVOLOG) 1 VIAL SQ SCH ×4 (06:19→22:45)
[2016-12-13] MEDS: LISINOPRIL 20 MG TABLET (FP) GT SCH (10:08)
[2016-12-13] MEDS: MULTIVITAMINS LIQUID THERAPEUTIC 118 ML BOT GT SCH (10:08)
[2016-12-13] MEDS: AMINO ACIDS/PROTEIN HYDROLYS SUGAR-FREE 30 ML PACKET PO SCH (10:08)
[2016-12-13] MEDS: amLODIPine BESYLATE 10 MG TABLET (FP) GT SCH (10:08)
[2016-12-13] MEDS: METOPROLOL TARTRATE 50 MG TABLET (FP) GT SCH ×2 (10:08→22:35)
[2016-12-13] MEDS: RANITIDINE HCL 150 MG/10 ML UNIT-DOSE CUP PO SCH ×2 (10:09→22:35)
[2016-12-13] MEDS: SCOPOLAMINE HYDROBROMIDE 1 PATCH PATCH.TD72 TD SCH (14:08)
--- NOTE | 2016-12-13 16:28 | PN ---
Progress Note (short form) - Note Progress Note: Subjective: The patient was seen and examined at the bedside, non-verbal. Tolerating room air well Current Medications Generic Name Dose Route Start Last Admin Trade Name Ginette PRN Reason Stop Dose Admin Acetaminophen 650 mg 05/26/16 14:23 12/11/16 23:12 Tylenol Oral Solution - GT 650 mg Q4H PRN Administration FEVER Amino Acids 30 ml 06/28/16 10:00 12/13/16 10:08 Prostat Sugar-Free Packet - PO 30 ml DAILY KWAKU Administration Amlodipine Besylate 10 mg 12/30/15 10:00 12/13/16 10:08 Norvasc - GT 10 mg DAILY KWAKU Administration Insulin Aspart 1 vial 09/17/16 16:30 12/13/16 12:56 Novolog Vial Sliding Scale - SQ Not Given ACHS [facility] Protocol Insulin Detemir 20 units 09/21/16 13:25 12/12/16 21:43 Levemir Vial SQ 20 units HS KWAKU Administration Lisinopril 40 mg 12/30/15 10:00 12/13/16 10:08 Prinivil GT 40 mg DAILY KWAKU Administration Metoprolol Tartrate 150 mg 11/28/16 10:00 12/13/16 10:08 Lopressor - GT 150 mg BID KWAKU Administration Multi-Ingredient Lotion 1 applic 11/07/16 11:55 Eucerin (Large Jar) - TP BID PRN DRY SKIN Multivitamins 5 ml 10/16/16 16:30 12/13/16 10:08 Thera-Plus - GT 5 ml DAILY KWAKU Administration Ranitidine HCl 150 mg 08/27/16 12:15 12/13/16 10:09 Zantac Oral Solution - PO 150 mg BID KWAKU Administration Scopolamine HBr 1 patch 12/10/16 11:00 12/13/16 14:08 Transderm-Scop - TD 1 patch Q72H KWAKU Administration Objective: Vital Signs Period Temp Pulse Resp BP Sys/Santiago Pulse Ox Last 24 Hr 97.6 F-98.9 F 67-82 18-20 132-145/74-85 100-100 Physical Exam: General: No acute distress HEENT: Tracheal stoma Neuro: Opens eyes to verbal stimuli Pulm: CTA anteriorly CV: RRR, S1S2 Abd: Soft, non-distended. Normoactive bowel sounds. Peg tube c/d/i Ext: Warm, well-perfused. 2+ DP/PT bilaterally CBCD WBC 9.1 K/mm3 (4.0-10.0) D 12/11/16 06:50 RBC 3.99 M/mm3 (4.00-5.60) L 12/11/16 06:50 Hgb 11.9 GM/dL (11.7-16.9) 12/11/16 06:50 Hct 35.2 % (35.4-49) L 12/11/16 06:50 MCV 88.2 fl (80-96) 12/11/16 06:50 MCHC 33.9 g/dl (32.0-35.9) 12/11/16 06:50 RDW 14.2 % (11.9-15.9) 12/11/16 06:50 Plt Count 194 K/MM3 (134-434) D 12/11/16 06:50 MPV 9.5 fl (7.5-11.1) 12/11/16 06:50 CMP Sodium 140 mmol/L (136-145) 12/11/16 06:50 Potassium 3.6 mmol/L (3.5-5.1) 12/11/16 06:50 Chloride 101 mmol/L (98-107) 12/11/16 06:50 Carbon Dioxide 29 mmol/L (21-32) 12/11/16 06:50 Anion Gap 10 (8-16) 12/11/16 06:50 BUN 23 mg/dL (7-18) H 12/11/16 06:50 Creatinine 0.8 mg/dL (0.7-1.3) 12/11/16 06:50 Creat Clearance w eGFR > 60 (>60) 12/11/16 06:50 Random Glucose 96 mg/dL (74-106) D 12/11/16 06:50 Calcium 9.5 mg/dL (8.5-10.1) 12/11/16 06:50 Total Bilirubin 0.3 mg/dL (0.2-1.0) 12/11/16 06:50 AST 20 U/L (15-37) D 12/11/16 06:50 ALT 33 U/L (12-78) 12/11/16 06:50 Alkaline Phosphatase 129 U/L (45-117) H 12/11/16 06:50 Total Protein 7.5 g/dl (6.4-8.2) 12/11/16 06:50 Albumin 3.4 g/dl (3.4-5.0) 12/11/16 06:50 CARDIAC ENZYMES Creatine Kinase 62 IU/L (38-174) 06/28/15 09:35 Troponin I 0.07 ng/ml (0.03-0.5) D 07/09/15 05:00 Assessment: 75 year old male with PMHx of HTN, IDDM, inguinal hernia who presented to the ED with diverticular bleed s/p Righ hemicolectomy with 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 Plan: 1. Anoxic brain injury s/p brainstem CVAs - Mental status unchanged 2. 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 Respiratory failure secondary to anoxic brain injury - Cont O2 via room air, NC prn - Trach removed 09/09/16 - Duonebs PRN 4. HTN - Continue lisinopril, amlodipine, lopressor 5. Multiple pressure ulcers - Turn and position q2h - Local wound care 6. IDDM - Continue Levemir at 20u sq qhs - ISS BGM ACHS 7. F/E/N: - 70 ml/hr Glucerna 1.5, 65 ml/hr water flushes - Prostat daily - Continue Zantac bid 8. Prophylaxis: - SCDs bilaterally - No chemical anticoagulation 2/2 spontaneous gluteal bleed and severe GI bleed - Functional quadriplegia CODE STATUS: DNR Visit type - Emergency Visit Emergency Visit: Yes ED Registration Date: 06/27/15 Care time: The patient presented to the Emergency Department on the above date and was hospitalized for further evaluation of their emergent condition. - New Patient This patient is new to me today: No - Critical Care Critical Care patient: No
[2016-12-13] MEDS: INSULIN DETEMIR 100 UNITS/ML MDV SQ SCH (22:45)
[2016-12-14] MEDS: INSULIN SLIDING SCALE (NOVOLOG) 1 VIAL SQ SCH ×4 (06:10→22:30)
[2016-12-14] MEDS: amLODIPine BESYLATE 10 MG TABLET (FP) GT SCH (10:23)
[2016-12-14] MEDS: RANITIDINE HCL 150 MG/10 ML UNIT-DOSE CUP PO SCH ×2 (10:23→22:17)
[2016-12-14] MEDS: METOPROLOL TARTRATE 50 MG TABLET (FP) GT SCH ×2 (10:23→22:17)
[2016-12-14] MEDS: AMINO ACIDS/PROTEIN HYDROLYS SUGAR-FREE 30 ML PACKET PO SCH (10:23)
[2016-12-14] MEDS: LISINOPRIL 20 MG TABLET (FP) GT SCH (10:24)
[2016-12-14] MEDS: MULTIVITAMINS LIQUID THERAPEUTIC 118 ML BOT GT SCH (10:24)
--- NOTE | 2016-12-14 13:52 | PN ---
Progress Note (short form) - Note Progress Note: Subjective: The patient was seen and examined at the bedside, non-verbal. Tolerating room air well Current Medications Generic Name Dose Route Start Last Admin Trade Name Ginette PRN Reason Stop Dose Admin Acetaminophen 650 mg 05/26/16 14:23 12/11/16 23:12 Tylenol Oral Solution - GT 650 mg Q4H PRN Administration FEVER Amino Acids 30 ml 06/28/16 10:00 12/14/16 10:23 Prostat Sugar-Free Packet - PO 30 ml DAILY KWAKU Administration Amlodipine Besylate 10 mg 12/30/15 10:00 12/14/16 10:23 Norvasc - GT 10 mg DAILY KWAKU Administration Insulin Aspart 1 vial 09/17/16 16:30 12/14/16 11:16 Novolog Vial Sliding Scale - SQ 4 units ACHS KWAKU Administration Protocol Insulin Detemir 20 units 09/21/16 13:25 12/13/16 22:45 Levemir Vial SQ 20 units HS KWAKU Administration Lisinopril 40 mg 12/30/15 10:00 12/14/16 10:24 Prinivil GT 40 mg DAILY KWAKU Administration Metoprolol Tartrate 150 mg 11/28/16 10:00 12/14/16 10:23 Lopressor - GT 150 mg BID KWAKU Administration Multi-Ingredient Lotion 1 applic 11/07/16 11:55 Eucerin (Large Jar) - TP BID PRN DRY SKIN Multivitamins 5 ml 10/16/16 16:30 12/14/16 10:24 Thera-Plus - GT 5 ml DAILY KWAKU Administration Ranitidine HCl 150 mg 08/27/16 12:15 12/14/16 10:23 Zantac Oral Solution - PO 150 mg BID KWAKU Administration Scopolamine HBr 1 patch 12/10/16 11:00 12/13/16 14:08 Transderm-Scop - TD 1 patch Q72H KWAKU Administration Objective: Vital Signs Period Temp Pulse Resp BP Sys/Santiago Pulse Ox Last 24 Hr 97.2 F-98.9 F 61-78 18-20 133-155/71-83 97-97 Physical Exam: General: No acute distress HEENT: Tracheal stoma Neuro: Opens eyes to verbal stimuli Pulm: CTA anteriorly CV: RRR, S1S2 Abd: Soft, non-distended. Normoactive bowel sounds. Peg tube c/d/i Ext: Warm, well-perfused. 2+ DP/PT bilaterally CBCD WBC 9.1 K/mm3 (4.0-10.0) D 12/11/16 06:50 RBC 3.99 M/mm3 (4.00-5.60) L 12/11/16 06:50 Hgb 11.9 GM/dL (11.7-16.9) 12/11/16 06:50 Hct 35.2 % (35.4-49) L 12/11/16 06:50 MCV 88.2 fl (80-96) 12/11/16 06:50 MCHC 33.9 g/dl (32.0-35.9) 12/11/16 06:50 RDW 14.2 % (11.9-15.9) 12/11/16 06:50 Plt Count 194 K/MM3 (134-434) D 12/11/16 06:50 MPV 9.5 fl (7.5-11.1) 12/11/16 06:50 CMP Sodium 140 mmol/L (136-145) 12/11/16 06:50 Potassium 3.6 mmol/L (3.5-5.1) 12/11/16 06:50 Chloride 101 mmol/L (98-107) 12/11/16 06:50 Carbon Dioxide 29 mmol/L (21-32) 12/11/16 06:50 Anion Gap 10 (8-16) 12/11/16 06:50 BUN 23 mg/dL (7-18) H 12/11/16 06:50 Creatinine 0.8 mg/dL (0.7-1.3) 12/11/16 06:50 Creat Clearance w eGFR > 60 (>60) 12/11/16 06:50 Random Glucose 96 mg/dL (74-106) D 12/11/16 06:50 Calcium 9.5 mg/dL (8.5-10.1) 12/11/16 06:50 Total Bilirubin 0.3 mg/dL (0.2-1.0) 12/11/16 06:50 AST 20 U/L (15-37) D 12/11/16 06:50 ALT 33 U/L (12-78) 12/11/16 06:50 Alkaline Phosphatase 129 U/L (45-117) H 12/11/16 06:50 Total Protein 7.5 g/dl (6.4-8.2) 12/11/16 06:50 Albumin 3.4 g/dl (3.4-5.0) 12/11/16 06:50 CARDIAC ENZYMES Creatine Kinase 62 IU/L (38-174) 06/28/15 09:35 Troponin I 0.07 ng/ml (0.03-0.5) D 07/09/15 05:00 Assessment: 75 year old male with PMHx of HTN, IDDM, inguinal hernia who presented to the ED with diverticular bleed s/p Righ hemicolectomy with 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 Plan: 1. Anoxic brain injury s/p brainstem CVAs - Mental status unchanged 2. 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 Respiratory failure secondary to anoxic brain injury - Cont O2 via room air, NC prn - Trach removed 09/09/16 - Duonebs PRN 4. HTN - Continue lisinopril, amlodipine, lopressor 5. Multiple pressure ulcers - Turn and position q2h - Local wound care 6. IDDM - Continue Levemir at 20u sq qhs - ISS BGM ACHS 7. F/E/N: - 70 ml/hr Glucerna 1.5, 65 ml/hr water flushes - Prostat daily - Continue Zantac bid 8. Prophylaxis: - SCDs bilaterally - No chemical anticoagulation 2/2 spontaneous gluteal bleed and severe GI bleed - Functional quadriplegia CODE STATUS: DNR Visit type - Emergency Visit Emergency Visit: Yes ED Registration Date: 06/27/15 Care time: The patient presented to the Emergency Department on the above date and was hospitalized for further evaluation of their emergent condition. - New Patient This patient is new to me today: No - Critical Care Critical Care patient: No
[2016-12-14] MEDS: INSULIN DETEMIR 100 UNITS/ML MDV SQ SCH (22:31)
[2016-12-15] MEDS: INSULIN SLIDING SCALE (NOVOLOG) 1 VIAL SQ SCH ×4 (06:38→22:20)
[2016-12-15] MEDS: amLODIPine BESYLATE 10 MG TABLET (FP) GT SCH (09:31)
[2016-12-15] MEDS: RANITIDINE HCL 150 MG/10 ML UNIT-DOSE CUP PO SCH ×2 (09:31→22:20)
[2016-12-15] MEDS: LISINOPRIL 20 MG TABLET (FP) GT SCH (09:31)
[2016-12-15] MEDS: MULTIVITAMINS LIQUID THERAPEUTIC 118 ML BOT GT SCH (09:33)
[2016-12-15] MEDS: METOPROLOL TARTRATE 50 MG TABLET (FP) GT SCH ×2 (09:33→22:20)
[2016-12-15] MEDS: AMINO ACIDS/PROTEIN HYDROLYS SUGAR-FREE 30 ML PACKET PO SCH (17:32)
[2016-12-15] MEDS: INSULIN DETEMIR 100 UNITS/ML MDV SQ SCH (22:20)
[2016-12-15] MEDS: ACETAMINOPHEN 650 MG/20.3 ML ORAL SOLUTION (CUPS) GT PRN (23:15)
[2016-12-16] MEDS: INSULIN SLIDING SCALE (NOVOLOG) 1 VIAL SQ SCH ×4 (06:25→22:11)
--- NOTE | 2016-12-16 11:21 | PN ---
Physical Exam: SUBJECTIVE: Patient seen and examined. OBJECTIVE: Vital Signs Period Temp Pulse Resp BP Sys/Santiago Pulse Ox Last 24 Hr 97.9 F-98.4 F 74-98 18-18 139-148/73-91 99 GENERAL: Eyes closed, opens to voice. EYES: PERRL, extraocular movements intact, sclera anicteric, conjunctiva clear. No ptosis. ENT: Ears normal, nares patent, oropharynx clear without exudates, moist mucous membranes. NECK: Trachea midline, full range of motion, supple. LUNGS: Breath sounds equal, clear to auscultation bilaterally, no wheezes, no crackles, no accessory muscle use. HEART: Regular rate and rhythm, S1, S2 without murmur, rub or gallop. ABDOMEN: Soft, nontender, nondistended, normoactive bowel sounds, no guarding, no rebound, no hepatosplenomegaly, no masses. EXTREMITIES: 2+ pulses, warm, well-perfused, no edema. NEUROLOGICAL: E 3 V 1 M 5 = 9. SKIN: Healing sacral pressure ulcer. Laboratory Results - last 24 hr 12/15/16 12/15/16 12/15/16 12:17 17:08 22:18 POC Glucometer 144 156 104 12/16/16 05:47 POC Glucometer 114 Active Medications Generic Name Dose Route Start Last Admin Trade Name Freq PRN Reason Stop Dose Admin Acetaminophen 650 mg 05/26/16 14:23 12/15/16 23:15 Tylenol Oral Solution - GT 650 mg Q4H PRN Administration FEVER Amino Acids 30 ml 06/28/16 10:00 12/15/16 17:32 Prostat Sugar-Free Packet - PO 30 ml DAILY KWAKU Administration Amlodipine Besylate 10 mg 12/30/15 10:00 12/15/16 09:31 Norvasc - GT 10 mg DAILY KWAKU Administration Insulin Aspart 1 vial 09/17/16 16:30 12/16/16 06:25 Novolog Vial Sliding Scale - SQ Not Given [facility] Protocol Insulin Detemir 20 units 09/21/16 13:25 12/15/16 22:20 Levemir Vial SQ 20 units HS KWAKU Administration Lisinopril 40 mg 12/30/15 10:00 12/15/16 09:31 Prinivil GT 40 mg DAILY KWAKU Administration Metoprolol Tartrate 150 mg 11/28/16 10:00 12/15/16 22:20 Lopressor - GT 150 mg BID KWAKU Administration Multi-Ingredient Lotion 1 applic 11/07/16 11:55 Eucerin (Large Jar) - TP BID PRN DRY SKIN Multivitamins 5 ml 10/16/16 16:30 12/15/16 09:33 Thera-Plus - GT 5 ml DAILY KWAKU Administration Ranitidine HCl 150 mg 08/27/16 12:15 12/15/16 22:20 Zantac Oral Solution - PO 150 mg BID KWAKU Administration Scopolamine HBr 1 patch 12/10/16 11:00 12/13/16 14:08 Transderm-Scop - TD 1 patch Q72H KWAKU Administration ASSESSMENT/PLAN: 75 year old male admitted with diverticular bleed, s/p right hemicolectomy 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 Plan: 1. Anoxic brain injury s/p brainstem CVAs - Mental status unchanged 2. 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 Respiratory failure secondary to anoxic brain injury - Cont O2 via room air, NC prn - Trach removed 09/09/16 - Duonebs PRN 4. HTN - Continue lisinopril, amlodipine, lopressor 5. Multiple pressure ulcers - Turn and position q2h - Local wound care 6. IDDM - Continue Levemir at 20u sq qhs - ISS BGM ACHS 7. F/E/N: - 70 ml/hr Glucerna 1.5, 65 ml/hr water flushes - Prostat daily - Continue Zantac bid 8. Prophylaxis: - SCDs bilaterally - No chemical anticoagulation 2/2 spontaneous gluteal bleed and severe GI bleed - Functional quadriplegia CODE STATUS: DNR Visit type - Emergency Visit Emergency Visit: Yes ED Registration Date: 06/27/15 Care time: The patient presented to the Emergency Department on the above date and was hospitalized for further evaluation of their emergent condition. - New Patient This patient is new to me today: Yes Date on this admission: 12/16/16 - Critical Care Critical Care patient: No
[2016-12-16] MEDS: METOPROLOL TARTRATE 50 MG TABLET (FP) GT SCH ×2 (11:39→22:16)
[2016-12-16] MEDS: amLODIPine BESYLATE 10 MG TABLET (FP) GT SCH (11:39)
[2016-12-16] MEDS: LISINOPRIL 20 MG TABLET (FP) GT SCH (11:39)
[2016-12-16] MEDS: AMINO ACIDS/PROTEIN HYDROLYS SUGAR-FREE 30 ML PACKET PO SCH (11:40)
[2016-12-16] MEDS: MULTIVITAMINS LIQUID THERAPEUTIC 118 ML BOT GT SCH (11:40)
[2016-12-16] MEDS: RANITIDINE HCL 150 MG/10 ML UNIT-DOSE CUP PO SCH ×2 (11:40→22:16)
[2016-12-16] MEDS: ACETAMINOPHEN 650 MG/20.3 ML ORAL SOLUTION (CUPS) GT PRN ×2 (11:44→22:16)
[2016-12-16] MEDS: SCOPOLAMINE HYDROBROMIDE 1 PATCH PATCH.TD72 TD SCH (13:22)
[2016-12-16] MEDS: INSULIN DETEMIR 100 UNITS/ML MDV SQ SCH (22:16)
[2016-12-17] MEDS: INSULIN SLIDING SCALE (NOVOLOG) 1 VIAL SQ SCH ×4 (06:31→23:56)
[2016-12-17] MEDS: AMINO ACIDS/PROTEIN HYDROLYS SUGAR-FREE 30 ML PACKET PO SCH (10:10)
[2016-12-17] MEDS: RANITIDINE HCL 150 MG/10 ML UNIT-DOSE CUP PO SCH ×2 (10:11→23:34)
[2016-12-17] MEDS: METOPROLOL TARTRATE 50 MG TABLET (FP) GT SCH ×2 (10:11→23:34)
[2016-12-17] MEDS: LISINOPRIL 20 MG TABLET (FP) GT SCH (10:12)
[2016-12-17] MEDS: MULTIVITAMINS LIQUID THERAPEUTIC 118 ML BOT GT SCH (10:12)
[2016-12-17] MEDS: amLODIPine BESYLATE 10 MG TABLET (FP) GT SCH (10:12)
[2016-12-17] MEDS: ACETAMINOPHEN 650 MG/20.3 ML ORAL SOLUTION (CUPS) GT PRN (10:12)
[2016-12-17] MEDS: INSULIN DETEMIR 100 UNITS/ML MDV SQ SCH (23:36)
[2016-12-18] MEDS: INSULIN SLIDING SCALE (NOVOLOG) 1 VIAL SQ SCH ×4 (07:30→23:15)
[2016-12-18 08:17] LABS: MCH 29.8 pg (25.7-33.7); MCHC 33.7 g/dl (32.0-35.9); MEAN CELL VOLUME 88.3 fl (80-96); MEAN PLT VOLUME 9.5 fl (7.5-11.1); PLATELET COUNT 203 K/MM3 (134-434); RDW 14.1 % (11.9-15.9); WHITE BLOOD COUNT 7.8 K/mm3 (4.0-10.0)
[2016-12-18 08:54] LABS: ALBUMIN 3.5 g/dl (3.4-5.0); ANION GAP 7 (8-16); CALCIUM 9.3 mg/dL (8.5-10.1); CO2 30 mmol/L (21-32); GLUCOSE,RANDOM 109 mg/dL (74-106); MAGNESIUM 2.3 mg/dL (1.8-2.4); PHOSPHOROUS 3.3 mg/dL (2.5-4.9); SGOT/AST 17 U/L (15-37)
[2016-12-18 08:56] LABS: ALK PHOS 144 U/L (45-117); BILIRUBIN,TOTAL 0.3 mg/dL (0.2-1.0); CREATININE 0.8 mg/dL (0.7-1.3); SGPT/ALT 33 U/L (12-78); TOT PROT 7.8 g/dl (6.4-8.2)
[2016-12-18] MEDS: amLODIPine BESYLATE 10 MG TABLET (FP) GT SCH (11:29)
[2016-12-18] MEDS: METOPROLOL TARTRATE 50 MG TABLET (FP) GT SCH ×2 (11:29→23:12)
[2016-12-18] MEDS: LISINOPRIL 20 MG TABLET (FP) GT SCH (11:29)
[2016-12-18] MEDS: MULTIVITAMINS LIQUID THERAPEUTIC 118 ML BOT GT SCH (11:30)
[2016-12-18] MEDS: ACETAMINOPHEN 650 MG/20.3 ML ORAL SOLUTION (CUPS) GT PRN (11:30)
[2016-12-18] MEDS: AMINO ACIDS/PROTEIN HYDROLYS SUGAR-FREE 30 ML PACKET PO SCH (11:30)
[2016-12-18] MEDS: RANITIDINE HCL 150 MG/10 ML UNIT-DOSE CUP PO SCH ×2 (11:30→23:12)
--- NOTE | 2016-12-18 13:57 | PN ---
Physical Exam: SUBJECTIVE: Patient seen and examined. Patient was awake, non verbal at baseline, and in no acute distress. Tolerating feeds. No acute events overnight. OBJECTIVE: Vital Signs Period Temp Pulse Resp BP Sys/Santiago Pulse Ox Last 24 Hr 97.4 F-98.7 F 72-91 16-18 128-147/72-89 96 GENERAL: Asleep, is awake, comfortable at rest, Tolerating feeds HEAD: Normal with no signs of trauma NECK: Trach removed, site is c/d/i, no redness or drainage noted. LUNGS: Anterior lungs with scattered rhonchi HEART: Regular rate and rhythm, heart rate 80 - 90s ABDOMEN: peg tube LUQ - on Jevity feeds with water flushes NEUROLOGICAL: at baseline, opens eyes intermittently SKIN: Healed stage 3 on sacrum Laboratory Results - last 24 hr 12/17/16 12/17/16 12/17/16 13:58 18:02 23:36 WBC RBC Hgb Hct MCV MCHC RDW Plt Count MPV Sodium Potassium Chloride Carbon Dioxide Anion Gap BUN Creatinine Creat Clearance w eGFR POC Glucometer 150 117 141 Random Glucose Calcium Phosphorus Magnesium Total Bilirubin AST ALT Alkaline Phosphatase Total Protein Albumin 12/18/16 12/18/16 12/18/16 06:18 06:35 06:35 WBC 7.8 RBC 4.04 Hgb 12.0 Hct 35.7 MCV 88.3 MCHC 33.7 RDW 14.1 Plt Count 203 MPV 9.5 Sodium 140 Potassium 3.7 Chloride 103 Carbon Dioxide 30 Anion Gap 7 L BUN 21 H Creatinine 0.8 Creat Clearance w eGFR > 60 POC Glucometer 134 Random Glucose 109 H Calcium 9.3 Phosphorus 3.3 Magnesium 2.3 Total Bilirubin 0.3 AST 17 ALT 33 Alkaline Phosphatase 144 H Total Protein 7.8 Albumin 3.5 Active Medications Generic Name Dose Route Start Last Admin Trade Name Freq PRN Reason Stop Dose Admin Acetaminophen 650 mg 05/26/16 14:23 12/18/16 11:30 Tylenol Oral Solution - GT 650 mg Q4H PRN Administration FEVER Amino Acids 30 ml 06/28/16 10:00 12/18/16 11:30 Prostat Sugar-Free Packet - PO 30 ml DAILY KWAKU Administration Amlodipine Besylate 10 mg 12/30/15 10:00 12/18/16 11:29 Norvasc - GT 10 mg DAILY KWAKU Administration Insulin Aspart 1 vial 09/17/16 16:30 12/18/16 12:12 Novolog Vial Sliding Scale - SQ Not Given ACHS [facility] Protocol Insulin Detemir 20 units 09/21/16 13:25 12/17/16 23:36 Levemir Vial SQ 20 units HS KWAKU Administration Lisinopril 40 mg 12/30/15 10:00 12/18/16 11:29 Prinivil GT 40 mg DAILY KWAKU Administration Metoprolol Tartrate 150 mg 11/28/16 10:00 12/18/16 11:29 Lopressor - GT 150 mg BID KWAKU Administration Multi-Ingredient Lotion 1 applic 11/07/16 11:55 Eucerin (Large Jar) - TP BID PRN DRY SKIN Multivitamins 5 ml 10/16/16 16:30 12/18/16 11:30 Thera-Plus - GT 5 ml DAILY KWAKU Administration Ranitidine HCl 150 mg 08/27/16 12:15 12/18/16 11:30 Zantac Oral Solution - PO 150 mg BID KWAKU Administration Scopolamine HBr 1 patch 12/10/16 11:00 12/16/16 13:22 Transderm-Scop - TD 1 patch Q72H KWAKU Administration ASSESSMENT/PLAN: Patient is a 76 year old male with a past medical history of IDDM, HTN and inguinal hernia. He presented to the emergency room on 06/27/2015 with a diverticular bleed s/p right hemicolectomy. His hospitalization was further complicated with a CVA with anoxic brain injury. He is s/p trach secondary to respiratory failure. He is currently tolerating room air, no pain behaviours on exam. 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 Cardiology: Hypertension - chronic Assessment/Plan: Hypertension On Norvasc 10mg daily, Lisinopril and Lopressor 150mg BID Endocrine: Diabetes - chronic Assessment/Plan: Tight glycemic control, Capillary glucose ac/hs Integumentary: Stage III pressure ulcers buttocks - healed Assessment/Plan: Continue Prostat daily, low score on Eliseo scale Monitor skin integrity, turn and position q2 F.E.N. NPO - all meds through GT Glucerna with water flushes via GT Prostat for treatment of pressure ulcers Functional quadraplegia Monitor for dehydration Prophylaxis: DVT: SCDs - both legs. No AC: contraindicated secondary to history of GI bleed GI Regimen: Ranitidine BID Bowel regimen: deferred - secondary to soft stools He is bed bound and a total care Code Status: Patient continues to require inpatient care. DNR. Visit type - Emergency Visit Emergency Visit: Yes ED Registration Date: 06/27/15 Care time: The patient presented to the Emergency Department on the above date and was hospitalized for further evaluation of their emergent condition. - New Patient This patient is new to me today: No - Critical Care Critical Care patient: No - Discharge Referral Referred to [facility] Med P.C.: No
[2016-12-18] MEDS: INSULIN DETEMIR 100 UNITS/ML MDV SQ SCH (23:33)
[2016-12-19] MEDS: INSULIN SLIDING SCALE (NOVOLOG) 1 VIAL SQ SCH ×4 (06:52→22:58)
[2016-12-19] MEDS: amLODIPine BESYLATE 10 MG TABLET (FP) GT SCH (10:03)
[2016-12-19] MEDS: METOPROLOL TARTRATE 50 MG TABLET (FP) GT SCH ×2 (10:04→22:58)
[2016-12-19] MEDS: AMINO ACIDS/PROTEIN HYDROLYS SUGAR-FREE 30 ML PACKET PO SCH (10:04)
[2016-12-19] MEDS: LISINOPRIL 20 MG TABLET (FP) GT SCH (10:04)
[2016-12-19] MEDS: RANITIDINE HCL 150 MG/10 ML UNIT-DOSE CUP PO SCH ×2 (10:04→22:58)
[2016-12-19] MEDS: SCOPOLAMINE HYDROBROMIDE 1 PATCH PATCH.TD72 TD SCH (10:05)
[2016-12-19] MEDS: MULTIVITAMINS LIQUID THERAPEUTIC 118 ML BOT GT SCH (10:05)
--- NOTE | 2016-12-19 14:26 | PN ---
Physical Exam: SUBJECTIVE: Patient seen and examined. Patient is resting in bed, in no acute distress, no pain behaviours on exam. Tolerating tube feeds, no overnight events reported. OBJECTIVE: GENERAL: Asleep, is awake, comfortable at rest, Tolerating feeds HEAD: Normal with no signs of trauma NECK: Trach removed, site is c/d/i, no redness or drainage noted. LUNGS: Anterior lungs with scattered rhonchi HEART: Regular rate and rhythm, heart rate 80 - 90s ABDOMEN: peg tube LUQ - on Jevity feeds with water flushes NEUROLOGICAL: at baseline, opens eyes intermittently SKIN: Healed stage 3 on sacrum Vital Signs Period Temp Pulse Resp BP Sys/Santiago Pulse Ox Last 24 Hr 97.7 F-98.3 F 59-67 18-22 141-158/70-75 95 Laboratory Results - last 24 hr 12/18/16 12/18/16 12/18/16 11:48 17:51 23:14 POC Glucometer 142 148 119 12/19/16 12/19/16 06:46 11:56 POC Glucometer 115 125 Active Medications Generic Name Dose Route Start Last Admin Trade Name Freq PRN Reason Stop Dose Admin Acetaminophen 650 mg 05/26/16 14:23 12/18/16 11:30 Tylenol Oral Solution - GT 650 mg Q4H PRN Administration FEVER Amino Acids 30 ml 06/28/16 10:00 12/19/16 10:04 Prostat Sugar-Free Packet - PO 30 ml DAILY KWAKU Administration Amlodipine Besylate 10 mg 12/30/15 10:00 12/19/16 10:03 Norvasc - GT 10 mg DAILY KWAKU Administration Insulin Aspart 1 vial 09/17/16 16:30 12/19/16 11:56 Novolog Vial Sliding Scale - SQ Not Given [facility] Protocol Insulin Detemir 20 units 09/21/16 13:25 12/18/16 23:33 Levemir Vial SQ 20 units HS KWAKU Administration Lisinopril 40 mg 12/30/15 10:00 12/19/16 10:04 Prinivil GT 40 mg DAILY KWAKU Administration Metoprolol Tartrate 150 mg 11/28/16 10:00 12/19/16 10:04 Lopressor - GT 150 mg BID KWAKU Administration Multi-Ingredient Lotion 1 applic 11/07/16 11:55 Eucerin (Large Jar) - TP BID PRN DRY SKIN Multivitamins 5 ml 10/16/16 16:30 12/19/16 10:05 Thera-Plus - GT 5 ml DAILY KWAKU Administration Ranitidine HCl 150 mg 08/27/16 12:15 12/19/16 10:04 Zantac Oral Solution - PO 150 mg BID KWAKU Administration Scopolamine HBr 1 patch 12/10/16 11:00 12/19/16 10:05 Transderm-Scop - TD 1 patch Q72H KWAKU Administration ASSESSMENT/PLAN: Patient is a 76 year old male with a past medical history of IDDM, HTN and inguinal hernia. He presented to the emergency room on 06/27/2015 with a diverticular bleed s/p right hemicolectomy. His hospitalization was further complicated with a CVA with anoxic brain injury. He is s/p trach secondary to respiratory failure. He is currently tolerating room air, no pain behaviours on exam. Neurology: Anoxic brain injury s/p brainstem CVA - at baseline Assessment/Plan: Mental status at baseline Functional quadriplegia secondary to anoxic brain injury Assessment/Plan: Requires total care, on continuous feeds He is unable to participate in any activities of daily living -requires 24 hour care Pulmonary: Respiratory failure secondary to anoxic brain injury - resolved Assessment/Plan: Tolerating room air. Cardiology: Hypertension - chronic Assessment/Plan: Hypertension On Norvasc 10mg daily, Lisinopril and Lopressor 150mg BID Endocrine: Diabetes - chronic Assessment/Plan: Tight glycemic control, Capillary glucose ac/hs Integumentary: Stage III pressure ulcers buttocks - healed Assessment/Plan: Continue Prostat daily, low score on Eliseo scale Monitor skin integrity, turn and position q2 F.E.N. NPO - all meds through GT Glucerna with water flushes via GT Prostat for treatment of pressure ulcers Functional quadraplegia Monitor for dehydration Prophylaxis: DVT: SCDs - both legs. No AC: contraindicated secondary to history of GI bleed GI Regimen: Ranitidine BID Bowel regimen: deferred - secondary to soft stools He is bed bound and a total care Code Status: Patient continues to require inpatient care. DNR. Visit type - Emergency Visit Emergency Visit: Yes ED Registration Date: 06/27/15 Care time: The patient presented to the Emergency Department on the above date and was hospitalized for further evaluation of their emergent condition. - New Patient This patient is new to me today: No - Critical Care Critical Care patient: No - Discharge Referral Referred to [facility] Med P.C.: No
[2016-12-19] MEDS: INSULIN DETEMIR 100 UNITS/ML MDV SQ SCH (22:58)
--- NOTE | 2016-12-20 04:06 | HOSP ---
Subjective - Review of Symptoms Events since last encounter: called to see pt as GT blocked as per nurse. Subjective: pt remains nonverbal Physical Examination Vital Signs: Vital Signs Temperature 98.1 F 12/19/16 22:00 Pulse Rate 82 12/19/16 22:00 Respiratory Rate 20 12/19/16 22:00 Blood Pressure 160/94 12/19/16 22:00 O2 Sat by Pulse Oximetry (%) 98 12/19/16 21:00 Gastrointestinal: Yes: Normal Bowel Sounds, Soft. No: Tenderness Labs: CBC, BMP 12/18/16 06:35 12/18/16 06:35 Hospitalist Encounter Assessment: GT blocked - attempted to change GT. Unable to deflate balloon, resistance to manual removal of GT. will need GI consult - Attempt to clear blocakage: 3cc floresita geovani instilled in tip of GT and allowed to sit. Attempted to flush after a few minutes, initially with minor resistance but then GT flushed freely. + borborygmi auscultated with air infusion. Minimal residual obtained. Water flushed through GT freely via gravity. Ok to use.
[2016-12-20] MEDS: INSULIN SLIDING SCALE (NOVOLOG) 1 VIAL SQ SCH ×4 (06:25→23:05)
[2016-12-20] MEDS: AMINO ACIDS/PROTEIN HYDROLYS SUGAR-FREE 30 ML PACKET PO SCH (10:37)
[2016-12-20] MEDS: METOPROLOL TARTRATE 50 MG TABLET (FP) GT SCH ×2 (10:37→23:05)
[2016-12-20] MEDS: amLODIPine BESYLATE 10 MG TABLET (FP) GT SCH (10:37)
[2016-12-20] MEDS: RANITIDINE HCL 150 MG/10 ML UNIT-DOSE CUP PO SCH ×2 (10:37→23:05)
[2016-12-20] MEDS: LISINOPRIL 20 MG TABLET (FP) GT SCH (10:37)
[2016-12-20] MEDS: MULTIVITAMINS LIQUID THERAPEUTIC 118 ML BOT GT SCH (10:38)
--- NOTE | 2016-12-20 17:50 | PN ---
Physical Exam: SUBJECTIVE: Patient seen and examined. Peg tube clogged overnight, now functioning and Peg tube feeds infusing without difficulty. OBJECTIVE: GENERAL: Asleep, is awake, comfortable at rest, Tolerating feeds HEAD: Normal with no signs of trauma NECK: Trach removed, site is c/d/i, no redness or drainage noted. LUNGS: Anterior lungs with scattered rhonchi HEART: Regular rate and rhythm, heart rate 80 - 90s ABDOMEN: peg tube LUQ - on Jevity feeds with water flushes - peg tube now fully functional. NEUROLOGICAL: at baseline, opens eyes intermittently SKIN: Healed stage 3 on sacrum Vital Signs Period Temp Pulse Resp BP Sys/Santiago Pulse Ox Last 24 Hr 97.8 F-98.4 F 75-84 20-20 144-160/86-95 98 Laboratory Results - last 24 hr 12/19/16 12/19/16 12/20/16 17:34 22:54 06:15 POC Glucometer 158 115 117 12/20/16 12/20/16 11:52 17:02 POC Glucometer 92 151 Active Medications Generic Name Dose Route Start Last Admin Trade Name Freq PRN Reason Stop Dose Admin Acetaminophen 650 mg 05/26/16 14:23 12/18/16 11:30 Tylenol Oral Solution - GT 650 mg Q4H PRN Administration FEVER Amino Acids 30 ml 06/28/16 10:00 12/20/16 10:37 Prostat Sugar-Free Packet - PO 30 ml DAILY KWAKU Administration Amlodipine Besylate 10 mg 12/30/15 10:00 12/20/16 10:37 Norvasc - GT 10 mg DAILY KWAKU Administration Insulin Aspart 1 vial 09/17/16 16:30 12/20/16 17:03 Novolog Vial Sliding Scale - SQ 4 units ACHS KWAKU Administration Protocol Insulin Detemir 20 units 09/21/16 13:25 12/19/16 22:58 Levemir Vial SQ 20 units HS KWAKU Administration Lisinopril 40 mg 12/30/15 10:00 12/20/16 10:37 Prinivil GT 40 mg DAILY KWAKU Administration Metoprolol Tartrate 150 mg 11/28/16 10:00 12/20/16 10:37 Lopressor - GT 150 mg BID KWAKU Administration Multi-Ingredient Lotion 1 applic 11/07/16 11:55 Eucerin (Large Jar) - TP BID PRN DRY SKIN Multivitamins 5 ml 10/16/16 16:30 12/20/16 10:38 Thera-Plus - GT 5 ml DAILY KWAKU Administration Ranitidine HCl 150 mg 08/27/16 12:15 12/20/16 10:37 Zantac Oral Solution - PO 150 mg BID KWAKU Administration Scopolamine HBr 1 patch 12/10/16 11:00 12/19/16 10:05 Transderm-Scop - TD 1 patch Q72H KWAKU Administration ASSESSMENT/PLAN: Patient is a 76 year old male with a past medical history of IDDM, HTN and inguinal hernia. He presented to the emergency room on 06/27/2015 with a diverticular bleed s/p right hemicolectomy. His hospitalization was further complicated with a CVA with anoxic brain injury. He is s/p trach secondary to respiratory failure. He is currently tolerating room air, no pain behaviours on exam. Neurology: Anoxic brain injury s/p brainstem CVA - at baseline Assessment/Plan: Mental status at baseline Functional quadriplegia secondary to anoxic brain injury Assessment/Plan: Requires total care, on continuous feeds He is unable to participate in any activities of daily living -requires 24 hour care Pulmonary: Respiratory failure secondary to anoxic brain injury - resolved Assessment/Plan: Tolerating room air. Cardiology: Hypertension - chronic Assessment/Plan: Hypertension On Norvasc 10mg daily, Lisinopril and Lopressor 150mg BID Endocrine: Diabetes - chronic Assessment/Plan: Tight glycemic control, Capillary glucose ac/hs Integumentary: Stage III pressure ulcers buttocks - healed Assessment/Plan: Continue Prostat daily, low score on Eliseo scale Monitor skin integrity, turn and position q2 F.E.N. NPO - all meds through GT Glucerna with water flushes via GT Prostat for treatment of pressure ulcers Functional quadraplegia Monitor for dehydration Prophylaxis: DVT: SCDs - both legs. No AC: contraindicated secondary to history of GI bleed GI Regimen: Ranitidine BID Bowel regimen: deferred - secondary to soft stools He is bed bound and a total care Code Status: Patient continues to require inpatient care. DNR. Visit type - Emergency Visit Emergency Visit: Yes ED Registration Date: 06/27/15 Care time: The patient presented to the Emergency Department on the above date and was hospitalized for further evaluation of their emergent condition. - New Patient This patient is new to me today: No - Critical Care Critical Care patient: No - Discharge Referral Referred to [facility] Med P.C.: No
[2016-12-20] MEDS: INSULIN DETEMIR 100 UNITS/ML MDV SQ SCH (23:05)
[2016-12-21] MEDS: INSULIN SLIDING SCALE (NOVOLOG) 1 VIAL SQ SCH ×4 (06:16→22:00)
[2016-12-21] MEDS: METOPROLOL TARTRATE 50 MG TABLET (FP) GT SCH ×2 (11:00→22:43)
[2016-12-21] MEDS: amLODIPine BESYLATE 10 MG TABLET (FP) GT SCH (11:00)
[2016-12-21] MEDS: LISINOPRIL 20 MG TABLET (FP) GT SCH (11:01)
[2016-12-21] MEDS: MULTIVITAMINS LIQUID THERAPEUTIC 118 ML BOT GT SCH (11:02)
[2016-12-21] MEDS: AMINO ACIDS/PROTEIN HYDROLYS SUGAR-FREE 30 ML PACKET PO SCH (11:02)
[2016-12-21] MEDS: RANITIDINE HCL 150 MG/10 ML UNIT-DOSE CUP PO SCH ×2 (11:02→22:43)
--- NOTE | 2016-12-21 16:09 | PN ---
Physical Exam: SUBJECTIVE: Patient seen and examined. He vomited twice overnight with ~10cc residual, feeds held. No fevers. GT is flushing without issue OBJECTIVE: Vital Signs Period Temp Pulse Resp BP Sys/Santiago Pulse Ox Last 24 Hr 97.3 F-98.9 F 58-87 18-18 133-159/75-94 94-98 PE Neuro: awakens to voice Pulm: Clear anteriorly, trach hole open CV: s1 s2 rrr no mrg Abd: peg tube CDI, s nt nd +bs Ext: foot drop, no edema Laboratory Results - last 24 hr 12/20/16 12/20/16 12/21/16 17:02 23:01 05:46 POC Glucometer 151 121 153 Active Medications Generic Name Dose Route Start Last Admin Trade Name Freq PRN Reason Stop Dose Admin Acetaminophen 650 mg 05/26/16 14:23 12/18/16 11:30 Tylenol Oral Solution - GT 650 mg Q4H PRN Administration FEVER Amino Acids 30 ml 06/28/16 10:00 12/21/16 11:02 Prostat Sugar-Free Packet - PO 30 ml DAILY KWAKU Administration Amlodipine Besylate 10 mg 12/30/15 10:00 12/21/16 11:00 Norvasc - GT 10 mg DAILY KWAKU Administration Insulin Aspart 1 vial 09/17/16 16:30 12/21/16 11:54 Novolog Vial Sliding Scale - SQ Not Given [facility] Protocol Insulin Detemir 20 units 09/21/16 13:25 12/20/16 23:05 Levemir Vial SQ 20 units HS KWAKU Administration Lisinopril 40 mg 12/30/15 10:00 12/21/16 11:01 Prinivil GT 40 mg DAILY KWAKU Administration Metoprolol Tartrate 150 mg 11/28/16 10:00 12/21/16 11:00 Lopressor - GT 150 mg BID KWAKU Administration Multi-Ingredient Lotion 1 applic 11/07/16 11:55 Eucerin (Large Jar) - TP BID PRN DRY SKIN Multivitamins 5 ml 10/16/16 16:30 12/21/16 11:02 Thera-Plus - GT 5 ml DAILY KWAKU Administration Ranitidine HCl 150 mg 08/27/16 12:15 12/21/16 11:02 Zantac Oral Solution - PO 150 mg BID KWAKU Administration Scopolamine HBr 1 patch 12/10/16 11:00 12/19/16 10:05 Transderm-Scop - TD 1 patch Q72H KWAKU Administration Assessment: 76 year old male with PMHx of HTN, IDDM, inguinal hernia who presented to the ED with diverticular bleed s/p Right hemicolectomy with hospital course complicated 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 Plan: 1. Anoxic brain injury s/p brainstem CVAs - Mental status unchanged 2. Respiratory failure with spontaneous breathing pauses 2/2 anoxic brain injury - No therapy for pauses per pulm 3. HTN - HR controlled - Continue lopressor 150mg BID - Continue norvasc 10mg - Continue lisinopril 40mg daily 4. Multiple pressure ulcers - Daily wound care - Turn and position q2h 5. IDDM - Levemir at 20u sq qhs - ISS BGM ACHS 6. Nutrition - Restart feeds slowlyg, 30cc uptitrate to 75 ml/hr Glucerna 1.5, 80 ml/hr water flushes - Prostat daily - Monitor for vomiting 7. Prophylaxis - SCDs bilaterally - No chemical AC 2/2 spontaneous gluteal bleed and severe GI bleed - Zantac BID 8. Functional quadriplegia Visit type - Emergency Visit Emergency Visit: Yes ED Registration Date: 06/27/15 Care time: The patient presented to the Emergency Department on the above date and was hospitalized for further evaluation of their emergent condition. - New Patient This patient is new to me today: No - Critical Care Critical Care patient: No - Discharge Referral Referred to [facility] Med P.C.: No
[2016-12-21] MEDS: INSULIN DETEMIR 100 UNITS/ML MDV SQ SCH (22:46)
[2016-12-22] MEDS: INSULIN SLIDING SCALE (NOVOLOG) 1 VIAL SQ SCH ×4 (06:06→21:10)
[2016-12-22 07:32] LABS: BASOPHIL 1.1 % (0-2.0); EOSINOPHIL 3.9 % (0-4.5); MCH 29.9 pg (25.7-33.7); MCHC 33.8 g/dl (32.0-35.9); MEAN CELL VOLUME 88.6 fl (80-96); MEAN PLT VOLUME 9.2 fl (7.5-11.1); NEUTROPHILS 52.5 % (42.8-82.8); PLATELET COUNT 190 K/MM3 (134-434); RDW 14.1 % (11.9-15.9)
[2016-12-22 07:50] LABS: PHOSPHOROUS 3.3 mg/dL (2.5-4.9); SGOT/AST 21 U/L (15-37)
[2016-12-22 07:53] LABS: ALBUMIN 3.6 g/dl (3.4-5.0); ALK PHOS 122 U/L (45-117); ANION GAP 9 (8-16); BILIRUBIN,TOTAL 0.4 mg/dL (0.2-1.0); CALCIUM 9.8 mg/dL (8.5-10.1); CO2 28 mmol/L (21-32); CREATININE 0.9 mg/dL (0.7-1.3); GLUCOSE,RANDOM 136 mg/dL (74-106); MAGNESIUM 2.3 mg/dL (1.8-2.4); SGPT/ALT 33 U/L (12-78); TOT PROT 8.2 g/dl (6.4-8.2)
--- NOTE | 2016-12-22 11:01 | CONSULT ---
Admitting History and Physical - Primary Care Physician PCP: Oanh Ko - Admission History of Present Illness: 76 year old male with PMHx of HTN, IDDM, inguinal hernia who presented to the ED with diverticular bleed s/p Right hemicolectomy with hospital course complicated by brainstem CVA with anoxic brain injury s/p trach (removed ), PEG placement and iliac artery bleed s/p embolization 09/03/15. Last seen by me 09/01/2015 for sp/sw evaluation/PMV evaluation. Referred to assess present potential for speech/swallow potential for rehabilitation. 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 Cardiovascular: Yes: HTN Pulmonary: Yes: Other (past vent dependent) Gastrointestinal: Yes: GI Bleed Endocrine: Yes: Diabetes Mellitus - Past Surgical History Past Surgical History: Yes: Colectomy - Smoking History Smoking history: Never smoked Have you smoked in the past 12 months: No Aproximately how many cigarettes per day: 0 - Alcohol/Substance Use Hx Alcohol Use: No History - Admission Reason For Visit: LOWER GASTROINTESTINAL HEMORRHAGE - General Mental Status: Awake and Alert Attention: Severe Impairment Ability to Follow Directions: Poor Head/Neck Control: Needs Assist - Hearing Hearing: Normal Speech Evaluation - Communication Primary Language: SCOTTISH Communication: Yes: Non-Communicable Oral Expression Ability: Yes: Non-Verbal (rare vocalizations) - Speech Production Apraxia: Yes Able to Make Needs Known: Yes: Severely Impaired - Speech Characteristics Voice Loudness: Mildly Soft/Quiet Voice Pitch: Yes: Normal Voice Phonatory-based Quality: Yes: Normal Speech Pattern: Impaired Articulation: Yes: Imprecise (no articulation. just rare audible phonation.) - Language/Auditory Comprehension Observation: Able to respond to yes/no queries: No (rare headshake for staff), Yes/No Confusion: Yes (suspected "non" for all questions if elicited), Comprehends Conversational Speech: Yes (Possibly?), Benefits from Slow Speech: Yes, Benefits from Repetiton: Yes - Language/Verbal Expression Aphasia: Yes: Apraxia Able to Communicate Wants and Needs: Yes: Severely Impaired - Swallow Evaluation/Bedside Assessment Current Nutritional Intake: NPO, G Tube Oral Secretions: Yes: WFL Jaw Position: Open at Rest Laryngeal Elevation: Impaired Laryngeal Movement: Able to Palpate (possibly,rare, untimely), Unable to Palpate Coughing/Throat Clear: No Recommendations - Speech Evaluation, Impression/Plan Impression: Pt is awake, not clearly establishing eye contact or visually tracking.Visual ability? Rare vocalizations, without articulation. Unable to elicit any words upon repetition, singing, or spontaneously. May have possibly followed command to close eyes, with delay of 2+ minutes. No y/n headshake elicited, although staff reports he rarely shakes head no in response to questions but never yes. Reliability? Mouth open posture, unable to facilitate bilabial closure for speech. Orally defensive for po trial with possibly rare, untimely nonfunctional swallow at this time.No drooling or vocal wetness. Recommended Therapies: Other (Speech /swallowing rehabilitation potential is quite limited at this time.Apraxia/cognitive deficits/ (vs remote possibility of locked in syndrome? ) Suggest caretakers attempt to facilitate ability to follow 1 or 2 whole body commands eg close eyes, stick out tongue, lift hand, look at me and facilitate more consistant yes/no head shake.) Recommended Frequency for Therapy: Follow Up PRN (trial to facilitate communication, as indicated.) - Dysphagia Impressions/Plan Swallowing Skills: Impaired *Silent aspiration: cannot be R/O at bedside
[2016-12-22] MEDS: METOPROLOL TARTRATE 50 MG TABLET (FP) GT SCH ×2 (11:05→21:23)
[2016-12-22] MEDS: amLODIPine BESYLATE 10 MG TABLET (FP) GT SCH (11:05)
[2016-12-22] MEDS: MULTIVITAMINS LIQUID THERAPEUTIC 118 ML BOT GT SCH (11:05)
[2016-12-22] MEDS: AMINO ACIDS/PROTEIN HYDROLYS SUGAR-FREE 30 ML PACKET PO SCH (11:05)
[2016-12-22] MEDS: RANITIDINE HCL 150 MG/10 ML UNIT-DOSE CUP PO SCH ×2 (11:05→21:22)
[2016-12-22] MEDS: LISINOPRIL 20 MG TABLET (FP) GT SCH (11:05)
[2016-12-22] MEDS: SCOPOLAMINE HYDROBROMIDE 1 PATCH PATCH.TD72 TD SCH (11:06)
--- NOTE | 2016-12-22 11:24 | PN ---
Physical Exam: SUBJECTIVE: Patient seen and examined. No further vomiting, tolerating TF at regular rate. OBJECTIVE: Vital Signs Period Temp Pulse Resp BP Sys/Santiago Pulse Ox Last 24 Hr 97.3 F-98.2 F 58-82 18-20 133-148/75-82 95 PE Neuro: awakens to voice Pulm: Clear anteriorly, trach hole open CV: s1 s2 rrr no mrg Abd: peg tube CDI, s nt nd +bs Ext: foot drop, no edema, warm Skin: sacral wound CBCD WBC 7.0 K/mm3 (4.0-10.0) 12/22/16 06:50 RBC 4.02 M/mm3 (4.00-5.60) 12/22/16 06:50 Hgb 12.0 GM/dL (11.7-16.9) 12/22/16 06:50 Hct 35.6 % (35.4-49) 12/22/16 06:50 MCV 88.6 fl (80-96) 12/22/16 06:50 MCHC 33.8 g/dl (32.0-35.9) 12/22/16 06:50 RDW 14.1 % (11.9-15.9) 12/22/16 06:50 Plt Count 190 K/MM3 (134-434) 12/22/16 06:50 MPV 9.2 fl (7.5-11.1) 12/22/16 06:50 CMP Sodium 142 mmol/L (136-145) 12/22/16 06:50 Potassium 3.5 mmol/L (3.5-5.1) 12/22/16 06:50 Chloride 105 mmol/L (98-107) 12/22/16 06:50 Carbon Dioxide 28 mmol/L (21-32) 12/22/16 06:50 Anion Gap 9 (8-16) 12/22/16 06:50 BUN 23 mg/dL (7-18) H 12/22/16 06:50 Creatinine 0.9 mg/dL (0.7-1.3) 12/22/16 06:50 Creat Clearance w eGFR > 60 (>60) 12/22/16 06:50 Calcium 9.8 mg/dL (8.5-10.1) 12/22/16 06:50 Total Bilirubin 0.4 mg/dL (0.2-1.0) D 12/22/16 06:50 AST 21 U/L (15-37) D 12/22/16 06:50 ALT 33 U/L (12-78) 12/22/16 06:50 Alkaline Phosphatase 122 U/L (45-117) H 12/22/16 06:50 Total Protein 8.2 g/dl (6.4-8.2) 12/22/16 06:50 Albumin 3.6 g/dl (3.4-5.0) 12/22/16 06:50 Active Medications Generic Name Dose Route Start Last Admin Trade Name Freq PRN Reason Stop Dose Admin Acetaminophen 650 mg 05/26/16 14:23 12/18/16 11:30 Tylenol Oral Solution - GT 650 mg Q4H PRN Administration FEVER Amino Acids 30 ml 06/28/16 10:00 12/22/16 11:05 Prostat Sugar-Free Packet - PO 30 ml DAILY KWAKU Administration Amlodipine Besylate 10 mg 12/30/15 10:00 12/22/16 11:05 Norvasc - GT 10 mg DAILY KWAKU Administration Insulin Aspart 1 vial 09/17/16 16:30 12/22/16 11:06 Novolog Vial Sliding Scale - SQ Not Given ACHS [facility] Protocol Insulin Detemir 20 units 09/21/16 13:25 12/21/16 22:46 Levemir Vial SQ 20 units HS KWAKU Administration Lisinopril 40 mg 12/30/15 10:00 12/22/16 11:05 Prinivil GT 40 mg DAILY KWAKU Administration Metoprolol Tartrate 150 mg 11/28/16 10:00 12/22/16 11:05 Lopressor - GT 150 mg BID KWAKU Administration Multi-Ingredient Lotion 1 applic 11/07/16 11:55 Eucerin (Large Jar) - TP BID PRN DRY SKIN Multivitamins 5 ml 10/16/16 16:30 12/22/16 11:05 Thera-Plus - GT 5 ml DAILY KWAKU Administration Ranitidine HCl 150 mg 08/27/16 12:15 12/22/16 11:05 Zantac Oral Solution - PO 150 mg BID KWAKU Administration Scopolamine HBr 1 patch 12/10/16 11:00 12/22/16 11:06 Transderm-Scop - TD 1 patch Q72H KWAKU Administration Assessment: 76 year old male with PMHx of HTN, IDDM, inguinal hernia who presented to the ED with diverticular bleed s/p Right hemicolectomy with hospital course complicated 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 Plan: 1. Anoxic brain injury s/p brainstem CVAs - Mental status unchanged 2. Respiratory failure with spontaneous breathing pauses 2/2 anoxic brain injury - No therapy for pauses per pulm 3. HTN - HR controlled - Continue lopressor 150mg BID - Continue norvasc 10mg - Continue lisinopril 40mg daily 4. Multiple pressure ulcers - Daily wound care - Turn and position q2h 5. IDDM - Levemir at 20u sq qhs - ISS BGM ACHS 6. Nutrition - Continue 75 ml/hr Glucerna 1.5, 80 ml/hr water flushes - Prostat daily 7. Prophylaxis - SCDs bilaterally - No chemical AC 2/2 spontaneous gluteal bleed and severe GI bleed - Zantac BID 8. Functional quadriplegia - Full Care Visit type - Emergency Visit Emergency Visit: Yes ED Registration Date: 06/27/15 Care time: The patient presented to the Emergency Department on the above date and was hospitalized for further evaluation of their emergent condition. - New Patient This patient is new to me today: No - Critical Care Critical Care patient: No - Discharge Referral Referred to [facility] Med [facility] No
[2016-12-22] MEDS: INSULIN DETEMIR 100 UNITS/ML MDV SQ SCH (21:22)
[2016-12-23] MEDS: INSULIN SLIDING SCALE (NOVOLOG) 1 VIAL SQ SCH ×4 (06:44→22:38)
[2016-12-23] MEDS: METOPROLOL TARTRATE 50 MG TABLET (FP) GT SCH ×2 (10:52→22:36)
[2016-12-23] MEDS: amLODIPine BESYLATE 10 MG TABLET (FP) GT SCH (10:53)
[2016-12-23] MEDS: RANITIDINE HCL 150 MG/10 ML UNIT-DOSE CUP PO SCH ×2 (10:53→22:35)
[2016-12-23] MEDS: MULTIVITAMINS LIQUID THERAPEUTIC 118 ML BOT GT SCH (10:53)
[2016-12-23] MEDS: AMINO ACIDS/PROTEIN HYDROLYS SUGAR-FREE 30 ML PACKET PO SCH (10:53)
[2016-12-23] MEDS: LISINOPRIL 20 MG TABLET (FP) GT SCH (10:53)
--- NOTE | 2016-12-23 12:44 | PN ---
Physical Exam: SUBJECTIVE: Patient seen and examined. He has a white thicker coating on his tongue, however its removable with scraping, will attempt to brush, if unsuccessful will treat for thrush. OBJECTIVE: Vital Signs Period Temp Pulse Resp BP Sys/Santiago Pulse Ox Last 24 Hr 97.5 F-98.8 F 65-92 18-20 124-148/67-92 95 PE Neuro: awakens to voice HEENT: white coating on tongue, thick removable pieces, Pulm: Clear anteriorly, trach hole open CV: s1 s2 rrr no mrg Abd: peg tube CDI, s nt nd +bs Ext: foot drop, no edema, warm Skin: sacral wound Laboratory Results - last 24 hr 12/22/16 12/23/16 12/23/16 16:46 06:26 12:19 POC Glucometer 157 200 154 Active Medications Generic Name Dose Route Start Last Admin Trade Name Freq PRN Reason Stop Dose Admin Acetaminophen 650 mg 05/26/16 14:23 12/18/16 11:30 Tylenol Oral Solution - GT 650 mg Q4H PRN Administration FEVER Amino Acids 30 ml 06/28/16 10:00 12/23/16 10:53 Prostat Sugar-Free Packet - PO 30 ml DAILY KWAKU Administration Amlodipine Besylate 10 mg 12/30/15 10:00 12/23/16 10:53 Norvasc - GT 10 mg DAILY KWAKU Administration Insulin Aspart 1 vial 09/17/16 16:30 12/23/16 12:21 Novolog Vial Sliding Scale - SQ 4 units ACHS KWAKU Administration Protocol Insulin Detemir 20 units 09/21/16 13:25 12/22/16 21:22 Levemir Vial SQ 20 units HS KWAKU Administration Lisinopril 40 mg 12/30/15 10:00 12/23/16 10:53 Prinivil GT 40 mg DAILY KWAKU Administration Metoprolol Tartrate 150 mg 11/28/16 10:00 12/23/16 10:52 Lopressor - GT 150 mg BID KWAKU Administration Multi-Ingredient Lotion 1 applic 11/07/16 11:55 Eucerin (Large Jar) - TP BID PRN DRY SKIN Multivitamins 5 ml 10/16/16 16:30 12/23/16 10:53 Thera-Plus - GT 5 ml DAILY KWAKU Administration Ranitidine HCl 150 mg 08/27/16 12:15 12/23/16 10:53 Zantac Oral Solution - PO 150 mg BID KWAKU Administration Scopolamine HBr 1 patch 12/10/16 11:00 12/22/16 11:06 Transderm-Scop - TD 1 patch Q72H KWAKU Administration Assessment: 76 year old male with PMHx of HTN, IDDM, inguinal hernia who presented to the ED with diverticular bleed s/p Right hemicolectomy with hospital course complicated 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 Plan: 1. Anoxic brain injury s/p brainstem CVAs - Mental status unchanged 2. Respiratory failure with spontaneous breathing pauses 2/2 anoxic brain injury - No therapy for pauses per pulm 3. HTN - HR controlled - Continue lopressor 150mg BID - Continue norvasc 10mg - Continue lisinopril 40mg daily 4. Multiple pressure ulcers - Daily wound care - Turn and position q2h 5. IDDM - Levemir at 20u sq qhs - ISS BGM ACHS 6. Nutrition - Continue 75 ml/hr Glucerna 1.5, 80 ml/hr water flushes - Prostat daily 7. Prophylaxis - SCDs bilaterally - No chemical AC 2/2 spontaneous gluteal bleed and severe GI bleed - Zantac BID 8. Functional quadriplegia - Full Care 9. Possible thrush - RN to preform more aggressive mouth care and brush tongue with bristles - If not, will start diflucan Visit type - Emergency Visit Emergency Visit: Yes ED Registration Date: 06/27/15 Care time: The patient presented to the Emergency Department on the above date and was hospitalized for further evaluation of their emergent condition. - New Patient This patient is new to me today: No - Critical Care Critical Care patient: No
[2016-12-23] MEDS: INSULIN DETEMIR 100 UNITS/ML MDV SQ SCH (22:43)
[2016-12-24] MEDS: INSULIN SLIDING SCALE (NOVOLOG) 1 VIAL SQ SCH ×4 (06:02→22:10)
[2016-12-24] MEDS: LISINOPRIL 20 MG TABLET (FP) GT SCH (10:01)
[2016-12-24] MEDS: METOPROLOL TARTRATE 50 MG TABLET (FP) GT SCH ×2 (10:01→22:12)
[2016-12-24] MEDS: RANITIDINE HCL 150 MG/10 ML UNIT-DOSE CUP PO SCH ×2 (10:02→22:11)
[2016-12-24] MEDS: amLODIPine BESYLATE 10 MG TABLET (FP) GT SCH (10:02)
[2016-12-24] MEDS: AMINO ACIDS/PROTEIN HYDROLYS SUGAR-FREE 30 ML PACKET PO SCH (10:40)
[2016-12-24] MEDS: MULTIVITAMINS LIQUID THERAPEUTIC 118 ML BOT GT SCH (10:40)
--- NOTE | 2016-12-24 16:43 | PN ---
Physical Exam: SUBJECTIVE: Patient seen and examined. OBJECTIVE: Vital Signs Period Temp Pulse Resp BP Sys/Santiago Pulse Ox Last 24 Hr 97.2 F-98.8 F 70-98 17-18 132-162/79-91 95-95 PE Neuro: awakens to voice Pulm: Clear anteriorly, trach hole open CV: s1 s2 rrr no mrg Abd: peg tube CDI, s nt nd +bs Ext: foot drop, no edema, warm Skin: sacral wound Laboratory Results - last 24 hr 12/23/16 12/23/16 12/24/16 16:52 22:37 05:37 POC Glucometer 114 128 170 12/24/16 12/24/16 11:13 15:59 POC Glucometer 148 135 Active Medications Generic Name Dose Route Start Last Admin Trade Name Freq PRN Reason Stop Dose Admin Acetaminophen 650 mg 05/26/16 14:23 12/18/16 11:30 Tylenol Oral Solution - GT 650 mg Q4H PRN Administration FEVER Amino Acids 30 ml 06/28/16 10:00 12/24/16 10:40 Prostat Sugar-Free Packet - PO 30 ml DAILY KWAKU Administration Amlodipine Besylate 10 mg 12/30/15 10:00 12/24/16 10:02 Norvasc - GT 10 mg DAILY KWAKU Administration Insulin Aspart 1 vial 09/17/16 16:30 12/24/16 16:00 Novolog Vial Sliding Scale - SQ Not Given ACHS [facility] OF [facility] Protocol Insulin Detemir 20 units 09/21/16 13:25 12/23/16 22:43 Levemir Vial SQ 20 units HS KWAKU Administration Lisinopril 40 mg 12/30/15 10:00 12/24/16 10:01 Prinivil GT 40 mg DAILY KWAKU Administration Metoprolol Tartrate 150 mg 11/28/16 10:00 12/24/16 10:01 Lopressor - GT 150 mg BID KWAKU Administration Multi-Ingredient Lotion 1 applic 11/07/16 11:55 Eucerin (Large Jar) - TP BID PRN DRY SKIN Multivitamins 5 ml 10/16/16 16:30 12/24/16 10:40 Thera-Plus - GT 5 ml DAILY KWAKU Administration Ranitidine HCl 150 mg 08/27/16 12:15 12/24/16 10:02 Zantac Oral Solution - PO 150 mg BID KWAKU Administration Scopolamine HBr 1 patch 12/10/16 11:00 12/22/16 11:06 Transderm-Scop - TD 1 patch Q72H KWAKU Administration Assessment: 76 year old male with PMHx of HTN, IDDM, inguinal hernia who presented to the ED with diverticular bleed s/p Right hemicolectomy with hospital course complicated 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 Plan: 1. Anoxic brain injury s/p brainstem CVAs - Mental status unchanged 2. Respiratory failure with spontaneous breathing pauses 2/2 anoxic brain injury - No therapy for pauses per pulm 3. HTN - HR controlled - Continue lopressor 150mg BID - Continue norvasc 10mg - Continue lisinopril 40mg daily 4. Multiple pressure ulcers - Daily wound care - Turn and position q2h 5. IDDM - Levemir at 20u sq qhs - ISS BGM ACHS 6. Nutrition - Continue 75 ml/hr Glucerna 1.5, 80 ml/hr water flushes - Prostat daily 7. Prophylaxis - SCDs bilaterally - No chemical AC 2/2 spontaneous gluteal bleed and severe GI bleed - Zantac BID 8. Functional quadriplegia - Full Care Visit type - Emergency Visit Emergency Visit: Yes ED Registration Date: 06/27/15 Care time: The patient presented to the Emergency Department on the above date and was hospitalized for further evaluation of their emergent condition. - New Patient This patient is new to me today: No - Critical Care Critical Care patient: No
[2016-12-24] MEDS: INSULIN DETEMIR 100 UNITS/ML MDV SQ SCH (22:10)
[2016-12-25] MEDS: INSULIN SLIDING SCALE (NOVOLOG) 1 VIAL SQ SCH ×3 (06:06→18:36)
[2016-12-25] MEDS: AMINO ACIDS/PROTEIN HYDROLYS SUGAR-FREE 30 ML PACKET PO SCH (10:00)
[2016-12-25] MEDS: RANITIDINE HCL 150 MG/10 ML UNIT-DOSE CUP PO SCH (10:00)
[2016-12-25] MEDS: METOPROLOL TARTRATE 50 MG TABLET (FP) GT SCH (10:00)
[2016-12-25] MEDS: MULTIVITAMINS LIQUID THERAPEUTIC 118 ML BOT GT SCH (10:00)
[2016-12-25] MEDS: LISINOPRIL 20 MG TABLET (FP) GT SCH (10:00)
[2016-12-25] MEDS: amLODIPine BESYLATE 10 MG TABLET (FP) GT SCH (10:00)
--- NOTE | 2016-12-25 11:54 | PN ---
Physical Exam: SUBJECTIVE: Patient seen and examined. Stable. No issues OBJECTIVE: Vital Signs Period Temp Pulse Resp BP Sys/Santiago Pulse Ox Last 24 Hr 97.2 F-98.7 F 70-94 17-20 124-147/72-88 95 PE Neuro: awakens to voice Pulm: Clear anteriorly, trach hole open CV: s1 s2 rrr no mrg Abd: peg tube CDI, s nt nd +bs Ext: foot drop, no edema, warm Skin: sacral wound Laboratory Results - last 24 hr 12/22/16 12/22/16 12/24/16 21:09 21:10 15:59 POC Glucometer 119 117 135 12/24/16 12/25/16 22:09 06:05 POC Glucometer 140 131 Active Medications Generic Name Dose Route Start Last Admin Trade Name Freq PRN Reason Stop Dose Admin Acetaminophen 650 mg 05/26/16 14:23 12/18/16 11:30 Tylenol Oral Solution - GT 650 mg Q4H PRN Administration FEVER Amino Acids 30 ml 06/28/16 10:00 12/24/16 10:40 Prostat Sugar-Free Packet - PO 30 ml DAILY KWAKU Administration Amlodipine Besylate 10 mg 12/30/15 10:00 12/24/16 10:02 Norvasc - GT 10 mg DAILY KWAKU Administration Insulin Aspart 1 vial 09/17/16 16:30 12/25/16 06:06 Novolog Vial Sliding Scale - SQ Not Given ACHS [facility] Protocol Insulin Detemir 20 units 09/21/16 13:25 12/24/16 22:10 Levemir Vial SQ 20 units HS KWAKU Administration Lisinopril 40 mg 12/30/15 10:00 12/24/16 10:01 Prinivil GT 40 mg DAILY KWAKU Administration Metoprolol Tartrate 150 mg 11/28/16 10:00 12/24/16 22:12 Lopressor - GT 150 mg BID KWAKU Administration Multi-Ingredient Lotion 1 applic 11/07/16 11:55 Eucerin (Large Jar) - TP BID PRN DRY SKIN Multivitamins 5 ml 10/16/16 16:30 12/24/16 10:40 Thera-Plus - GT 5 ml DAILY KWAKU Administration Ranitidine HCl 150 mg 08/27/16 12:15 12/24/16 22:11 Zantac Oral Solution - PO 150 mg BID KWAKU Administration Scopolamine HBr 1 patch 12/10/16 11:00 12/22/16 11:06 Transderm-Scop - TD 1 patch Q72H KWAKU Administration Assessment: 76 year old male with PMHx of HTN, IDDM, inguinal hernia who presented to the ED with diverticular bleed s/p Right hemicolectomy with hospital course complicated 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 Plan: 1. Anoxic brain injury s/p brainstem CVAs - Mental status unchanged 2. Respiratory failure with spontaneous breathing pauses 2/2 anoxic brain injury - No therapy for pauses per pulm 3. HTN - HR controlled - Continue lopressor 150mg BID - Continue norvasc 10mg - Continue lisinopril 40mg daily 4. Multiple pressure ulcers - Daily wound care - Turn and position q2h 5. IDDM - Levemir at 20u sq qhs - ISS BGM ACHS 6. Nutrition - Continue 75 ml/hr Glucerna 1.5, 80 ml/hr water flushes - Prostat daily 7. Prophylaxis - SCDs bilaterally - No chemical AC 2/2 spontaneous gluteal bleed and severe GI bleed - Zantac BID 8. Functional quadriplegia - Full Care Visit type - Emergency Visit Emergency Visit: Yes ED Registration Date: 06/27/15 Care time: The patient presented to the Emergency Department on the above date and was hospitalized for further evaluation of their emergent condition. - New Patient This patient is new to me today: No - Critical Care Critical Care patient: No
[2016-12-25] MEDS: SCOPOLAMINE HYDROBROMIDE 1 PATCH PATCH.TD72 TD SCH (13:16)
[2016-12-26] MEDS: INSULIN DETEMIR 100 UNITS/ML MDV SQ SCH ×2 (01:33→22:49)
[2016-12-26] MEDS: METOPROLOL TARTRATE 50 MG TABLET (FP) GT SCH ×3 (01:34→22:51)
[2016-12-26] MEDS: RANITIDINE HCL 150 MG/10 ML UNIT-DOSE CUP PO SCH ×3 (01:35→22:50)
[2016-12-26] MEDS: INSULIN SLIDING SCALE (NOVOLOG) 1 VIAL SQ SCH ×5 (01:44→22:48)
[2016-12-26] MEDS: LISINOPRIL 20 MG TABLET (FP) GT SCH (11:08)
[2016-12-26] MEDS: amLODIPine BESYLATE 10 MG TABLET (FP) GT SCH (11:09)
[2016-12-26] MEDS: AMINO ACIDS/PROTEIN HYDROLYS SUGAR-FREE 30 ML PACKET PO SCH (11:09)
[2016-12-26] MEDS: MULTIVITAMINS LIQUID THERAPEUTIC 118 ML BOT GT SCH (11:10)
[2016-12-26] MEDS: ACETAMINOPHEN 650 MG/20.3 ML ORAL SOLUTION (CUPS) GT PRN (22:50)
[2016-12-27] MEDS: INSULIN SLIDING SCALE (NOVOLOG) 1 VIAL SQ SCH ×4 (06:43→22:56)
[2016-12-27] MEDS: RANITIDINE HCL 150 MG/10 ML UNIT-DOSE CUP PO SCH ×2 (11:45→22:44)
[2016-12-27] MEDS: MULTIVITAMINS LIQUID THERAPEUTIC 118 ML BOT GT SCH (11:46)
[2016-12-27] MEDS: AMINO ACIDS/PROTEIN HYDROLYS SUGAR-FREE 30 ML PACKET PO SCH (11:47)
[2016-12-27] MEDS: amLODIPine BESYLATE 10 MG TABLET (FP) GT SCH (11:48)
[2016-12-27] MEDS: LISINOPRIL 20 MG TABLET (FP) GT SCH (11:48)
[2016-12-27] MEDS: METOPROLOL TARTRATE 50 MG TABLET (FP) GT SCH ×2 (11:51→22:44)
--- NOTE | 2016-12-27 14:10 | PN ---
Progress Note, [employer] - Note Progress Note: Skilled speech tx provided. Rare vocalization of /ah/ upon repetition vs chance ? Establishing eye contact occasionally. Not clearly following directions. Possible comprehension on simple level? Staff to continue to stimulate during pt care.
[2016-12-27] MEDS: INSULIN DETEMIR 100 UNITS/ML MDV SQ SCH (22:56)
[2016-12-28] MEDS: INSULIN SLIDING SCALE (NOVOLOG) 1 VIAL SQ SCH ×4 (06:23→22:33)
[2016-12-28] MEDS: amLODIPine BESYLATE 10 MG TABLET (FP) GT SCH (10:25)
[2016-12-28] MEDS: METOPROLOL TARTRATE 50 MG TABLET (FP) GT SCH ×2 (10:25→22:34)
[2016-12-28] MEDS: LISINOPRIL 20 MG TABLET (FP) GT SCH (10:25)
[2016-12-28] MEDS: AMINO ACIDS/PROTEIN HYDROLYS SUGAR-FREE 30 ML PACKET PO SCH (10:26)
[2016-12-28] MEDS: SCOPOLAMINE HYDROBROMIDE 1 PATCH PATCH.TD72 TD SCH (10:27)
[2016-12-28] MEDS: RANITIDINE HCL 150 MG/10 ML UNIT-DOSE CUP PO SCH ×2 (10:27→22:34)
[2016-12-28] MEDS: MULTIVITAMINS LIQUID THERAPEUTIC 118 ML BOT GT SCH (10:27)
--- NOTE | 2016-12-28 10:40 | PN ---
Physical Exam: SUBJECTIVE: Patient seen and examined. He is able to follow simple commands. Was able to squeeze my hands lightly when I asked. Able to make brief eye contact. Was seen by the speech pathologist yesterday. OBJECTIVE: Vital Signs Period Temp Pulse Resp BP Sys/Santiago Pulse Ox Last 24 Hr 98.5 F-99.3 F 66-84 18-20 136-146/76-89 96-96 GENERAL: Asleep, is awake, comfortable at rest, Tolerating feeds HEAD: Normal with no signs of trauma NECK: Trach removed, site is c/d/i, no redness or drainage noted. LUNGS: Anterior lungs with scattered rhonchi HEART: Regular rate and rhythm, heart rate 80 - 90s ABDOMEN: peg tube LUQ - on Jevity feeds with water flushes - peg tube now fully functional. NEUROLOGICAL: at baseline, opens eyes intermittently SKIN: Healed stage 3 on sacrum Laboratory Results - last 24 hr 12/27/16 12/27/16 12/28/16 17:59 22:54 05:54 POC Glucometer 159 124 149 Active Medications Generic Name Dose Route Start Last Admin Trade Name Freq PRN Reason Stop Dose Admin Acetaminophen 650 mg 05/26/16 14:23 12/26/16 22:50 Tylenol Oral Solution - GT 650 mg Q4H PRN Administration FEVER Amino Acids 30 ml 06/28/16 10:00 12/27/16 11:47 Prostat Sugar-Free Packet - PO 30 ml DAILY KWAKU Administration Amlodipine Besylate 10 mg 12/30/15 10:00 12/27/16 11:48 Norvasc - GT 10 mg DAILY KWAKU Administration Insulin Aspart 1 vial 09/17/16 16:30 12/28/16 06:23 Novolog Vial Sliding Scale - SQ Not Given [facility] Protocol Insulin Detemir 20 units 09/21/16 13:25 12/27/16 22:56 Levemir Vial SQ 20 units HS KWAKU Administration Lisinopril 40 mg 12/30/15 10:00 12/27/16 11:48 Prinivil GT 40 mg DAILY KWAKU Administration Metoprolol Tartrate 150 mg 11/28/16 10:00 12/27/16 22:44 Lopressor - GT 150 mg BID KWAKU Administration Multi-Ingredient Lotion 1 applic 11/07/16 11:55 Eucerin (Large Jar) - TP BID PRN DRY SKIN Multivitamins 5 ml 10/16/16 16:30 12/27/16 11:46 Thera-Plus - GT 5 ml DAILY KWAKU Administration Ranitidine HCl 150 mg 08/27/16 12:15 12/27/16 22:44 Zantac Oral Solution - PO 150 mg BID KWAKU Administration Scopolamine HBr 1 patch 12/10/16 11:00 12/25/16 13:16 Transderm-Scop - TD 1 patch Q72H KWAKU Administration ASSESSMENT/PLAN: Patient is a 76 year old male with a past medical history of IDDM, HTN and inguinal hernia. He presented to the emergency room on 06/27/2015 with a diverticular bleed s/p right hemicolectomy. His hospitalization was further complicated with a CVA with anoxic brain injury. He is s/p trach secondary to respiratory failure. He is currently tolerating room air, no pain behaviours on exam. Neurology: Anoxic brain injury s/p brainstem CVA - at baseline Functional quadriplegia secondary to anoxic brain injury Assessment/Plan: Requires total care, on continuous feeds He is unable to participate in any activities of daily living -requires 24 hour care Pulmonary: Respiratory failure secondary to anoxic brain injury - resolved Assessment/Plan: Tolerating room air. Cardiology: Hypertension - chronic Assessment/Plan: Hypertension On Norvasc 10mg daily, Lisinopril and Lopressor 150mg BID Endocrine: Diabetes - chronic Assessment/Plan: Tight glycemic control, Capillary glucose ac/hs Integumentary: Stage III pressure ulcers buttocks - healed Assessment/Plan: Continue Prostat daily, low score on Eliseo scale Monitor skin integrity, turn and position q2 F.E.N. NPO - all meds through GT Glucerna with water flushes via GT Prostat for treatment of pressure ulcers Functional quadraplegia Monitor for dehydration Prophylaxis: DVT: SCDs - both legs. No AC: contraindicated secondary to history of GI bleed GI Regimen: Ranitidine BID Bowel regimen: deferred - secondary to soft stools He is bed bound and a total care Code Status: Patient continues to require inpatient care. DNR. Visit type - Emergency Visit Emergency Visit: Yes ED Registration Date: 06/27/15 Care time: The patient presented to the Emergency Department on the above date and was hospitalized for further evaluation of their emergent condition. - New Patient This patient is new to me today: No - Critical Care Critical Care patient: No - Discharge Referral Referred to [facility] Med P.C.: No
[2016-12-28] MEDS: INSULIN DETEMIR 100 UNITS/ML MDV SQ SCH (22:37)
[2016-12-29] MEDS: INSULIN SLIDING SCALE (NOVOLOG) 1 VIAL SQ SCH ×4 (06:03→22:24)
--- NOTE | 2016-12-29 11:43 | PN ---
Physical Exam: SUBJECTIVE: Patient seen and examined. Patient appears to be at his baseline. No overnight events. Period Temp Pulse Resp BP Sys/Santiago Pulse Ox Last 24 Hr 98 F-98.4 F 68-90 20-20 139-148/59-92 97 OBJECTIVE: GENERAL: Asleep, is awake, comfortable at rest, Tolerating feeds HEAD: Normal with no signs of trauma NECK: Trach removed, site is c/d/i, no redness or drainage noted. LUNGS: Anterior lungs with scattered rhonchi HEART: Regular rate and rhythm, heart rate 80 - 90s ABDOMEN: peg tube LUQ - on continuous feeds Minimal abdominal distention, + bowel sounds, abdomen soft, simethecone added BID. NEUROLOGICAL: at baseline, opens eyes intermittently SKIN: Healed stage 3 on sacrum Laboratory Results - last 24 hr 12/28/16 12/28/16 12/28/16 11:37 17:21 22:31 POC Glucometer 159 151 150 12/29/16 05:48 POC Glucometer 153 Active Medications Generic Name Dose Route Start Last Admin Trade Name Freq PRN Reason Stop Dose Admin Acetaminophen 650 mg 05/26/16 14:23 12/26/16 22:50 Tylenol Oral Solution - GT 650 mg Q4H PRN Administration FEVER Amino Acids 30 ml 06/28/16 10:00 12/28/16 10:26 Prostat Sugar-Free Packet - PO 30 ml DAILY KWAKU Administration Amlodipine Besylate 10 mg 12/30/15 10:00 12/28/16 10:25 Norvasc - GT 10 mg DAILY KWAKU Administration Insulin Aspart 1 vial 09/17/16 16:30 12/29/16 06:03 Novolog Vial Sliding Scale - SQ 4 units ACHS KWAKU Administration Protocol Insulin Detemir 20 units 09/21/16 13:25 12/28/16 22:37 Levemir Vial SQ 20 units HS KWAKU Administration Lisinopril 40 mg 12/30/15 10:00 12/28/16 10:25 Prinivil GT 40 mg DAILY KWAKU Administration Metoprolol Tartrate 150 mg 11/28/16 10:00 12/28/16 22:34 Lopressor - GT 150 mg BID KWAKU Administration Multi-Ingredient Lotion 1 applic 11/07/16 11:55 Eucerin (Large Jar) - TP BID PRN DRY SKIN Multivitamins 5 ml 10/16/16 16:30 03/02/17 10:27 Thera-Plus - GT 5 ml DAILY KWAKU Administration Ranitidine HCl 150 mg 08/27/16 12:15 12/28/16 22:34 Zantac Oral Solution - PO 150 mg BID KWAKU Administration Scopolamine HBr 1 patch 12/10/16 11:00 12/28/16 10:27 Transderm-Scop - TD 1 patch Q72H KWAKU Administration Simethicone 40 mg 12/29/16 10:15 Mylicon Liquid - PO BID KWAKU ASSESSMENT/PLAN: Patient is a 76 year old male with a past medical history of IDDM, HTN and inguinal hernia. He presented to the emergency room on 06/27/2015 with a diverticular bleed s/p right hemicolectomy. His hospitalization was further complicated with a CVA with anoxic brain injury. He is s/p trach secondary to respiratory failure. He is currently tolerating room air, no pain behaviours on exam. Neurology: Anoxic brain injury s/p brainstem CVA - at baseline Functional quadriplegia secondary to anoxic brain injury Assessment/Plan: Requires total care, on continuous feeds He is unable to participate in any activities of daily living -requires 24 hour care Pulmonary: Respiratory failure secondary to anoxic brain injury - resolved Assessment/Plan: Tolerating room air. Cardiology: Hypertension - chronic Assessment/Plan: Hypertension On Norvasc 10mg daily, Lisinopril and Lopressor 150mg BID Endocrine: Diabetes - chronic Assessment/Plan: Tight glycemic control, Capillary glucose ac/hs Integumentary: Stage III pressure ulcers buttocks - healed Assessment/Plan: Continue Prostat daily, low score on Eliseo scale Monitor skin integrity, turn and position q2 F.E.N. NPO - all meds through GT Glucerna with water flushes via GT Prostat for treatment of pressure ulcers Functional quadraplegia Monitor for dehydration Simethicone added for mild abdominal bloating Next set of labs due on January 01. Prophylaxis: DVT: SCDs - both legs. No AC: contraindicated secondary to history of GI bleed GI Regimen: Ranitidine BID Bowel regimen: deferred - secondary to soft stools He is bed bound and a total care Code Status: Patient continues to require inpatient care. DNR. Visit type - Emergency Visit Emergency Visit: Yes ED Registration Date: 08/30/15 Care time: The patient presented to the Emergency Department on the above date and was hospitalized for further evaluation of their emergent condition. - New Patient This patient is new to me today: No - Critical Care Critical Care patient: No - Discharge Referral Referred to [facility] No
[2016-12-29] MEDS: amLODIPine BESYLATE 10 MG TABLET (FP) GT SCH (11:46)
[2016-12-29] MEDS: METOPROLOL TARTRATE 50 MG TABLET (FP) GT SCH ×3 (11:46→23:49)
[2016-12-29] MEDS: LISINOPRIL 20 MG TABLET (FP) GT SCH (11:47)
[2016-12-29] MEDS: RANITIDINE HCL 150 MG/10 ML UNIT-DOSE CUP PO SCH ×2 (11:47→22:17)
[2016-12-29] MEDS: AMINO ACIDS/PROTEIN HYDROLYS SUGAR-FREE 30 ML PACKET PO SCH (11:49)
[2016-12-29] MEDS: MULTIVITAMINS LIQUID THERAPEUTIC 118 ML BOT GT SCH (12:55)
[2016-12-29] MEDS: SIMETHICONE 40 MG/0.6 ML BOTTLE PO SCH ×3 (12:55→23:49)
[2016-12-29] MEDS: INSULIN DETEMIR 100 UNITS/ML MDV SQ SCH (22:24)
[2016-12-30 03:34] LABS: HIV 1 & 2 AB NEGATIVE; HIV 1 AGp24 NEGATIVE
[2016-12-30] MEDS: INSULIN SLIDING SCALE (NOVOLOG) 1 VIAL SQ SCH ×4 (07:06→22:23)
[2016-12-30] MEDS: SIMETHICONE 40 MG/0.6 ML BOTTLE PO SCH ×2 (10:00→22:22)
[2016-12-30] MEDS: METOPROLOL TARTRATE 50 MG TABLET (FP) GT SCH ×2 (11:00→22:22)
[2016-12-30] MEDS: amLODIPine BESYLATE 10 MG TABLET (FP) GT SCH (11:00)
[2016-12-30] MEDS: AMINO ACIDS/PROTEIN HYDROLYS SUGAR-FREE 30 ML PACKET PO SCH (11:00)
[2016-12-30] MEDS: MULTIVITAMINS LIQUID THERAPEUTIC 118 ML BOT GT SCH (11:00)
[2016-12-30] MEDS: RANITIDINE HCL 150 MG/10 ML UNIT-DOSE CUP PO SCH ×2 (11:00→22:23)
[2016-12-30] MEDS: LISINOPRIL 20 MG TABLET (FP) GT SCH (11:00)
--- NOTE | 2016-12-30 14:03 | HOSP ---
Subjective - Review of Symptoms Events since last encounter: Called by staff, GT came out. Subjective: Pt nonverbal, does not appear in any distress. GT not in place. Physical Examination Vital Signs: Vital Signs Temperature 98.2 F 12/30/16 09:41 Pulse Rate 100 H 12/30/16 09:41 Respiratory Rate 18 12/30/16 09:41 Blood Pressure 142/87 12/30/16 09:41 O2 Sat by Pulse Oximetry (%) 96 12/29/16 21:00 Gastrointestinal: Yes: Other (GT site with keloid scarring present, scant serous oozing noted at insertion site) Labs: CBC, BMP 12/22/16 06:50 12/22/16 06:50 Hospitalist Encounter Assessment: GT replacement: - GT replaced, site cleansed with NS, GT reinserted through existing tract after applying surgilube. Placement confirmed by aspiration of stomach contents and auscultation of air injection. ok to use.
--- NOTE | 2016-12-30 16:36 | PN ---
Physical Exam: SUBJECTIVE: Patient seen and examined. Called regarding GT dislodgment GI tube replaced by [employer] (see Hospitalist note encounter) GT Feeds to continue as ordered OBJECTIVE: Vital Signs Period Temp Pulse Resp BP Sys/Santiago Pulse Ox Last 24 Hr 98.2 F-99.4 F 66-100 18-20 126-144/82-87 96-97 GENERAL: Asleep, is awake, comfortable at rest, Tolerating feeds HEAD: Normal with no signs of trauma NECK: Trach removed, site is c/d/i, no redness or drainage noted. LUNGS: Anterior lungs with scattered rhonchi HEART: Regular rate and rhythm, heart rate 80 - 90s ABDOMEN: new peg tube LUQ - on continuous feeds Minimal abdominal distention, + bowel sounds, abdomen soft, simethecone added BID. NEUROLOGICAL: at baseline, opens eyes intermittently SKIN: Healed stage 3 on sacrum Laboratory Results - last 24 hr 12/29/16 12/29/16 12/30/16 17:52 22:23 02:00 POC Glucometer 141 142 HIV 1&2 Antibody Screen Negative HIV P24 Antigen Negative 12/30/16 12/30/16 05:54 12:00 POC Glucometer 131 131 HIV 1&2 Antibody Screen HIV P24 Antigen Active Medications Generic Name Dose Route Start Last Admin Trade Name Freq PRN Reason Stop Dose Admin Acetaminophen 650 mg 05/26/16 14:23 12/26/16 22:50 Tylenol Oral Solution - GT 650 mg Q4H PRN Administration FEVER Amino Acids 30 ml 06/28/16 10:00 12/30/16 11:00 Prostat Sugar-Free Packet - PO 30 ml DAILY KWAKU Administration Amlodipine Besylate 10 mg 12/30/15 10:00 12/30/16 11:00 Norvasc - GT 10 mg DAILY KWAKU Administration Insulin Aspart 1 vial 09/17/16 16:30 12/30/16 12:02 Novolog Vial Sliding Scale - SQ Not Given [facility] Protocol Insulin Detemir 20 units 09/21/16 13:25 12/29/16 22:24 Levemir Vial SQ 20 units HS KWAKU Administration Lisinopril 40 mg 12/30/15 10:00 12/30/16 11:00 Prinivil GT 40 mg DAILY KWAKU Administration Metoprolol Tartrate 150 mg 11/28/16 10:00 12/30/16 11:00 Lopressor - GT 150 mg BID KWAKU Administration Multi-Ingredient Lotion 1 applic 11/07/16 11:55 Eucerin (Large Jar) - TP BID PRN DRY SKIN Multivitamins 5 ml 10/16/16 16:30 12/30/16 11:00 Thera-Plus - GT 5 ml DAILY KWAKU Administration Ranitidine HCl 150 mg 08/27/16 12:15 12/30/16 11:00 Zantac Oral Solution - PO 150 mg BID KWAKU Administration Scopolamine HBr 1 patch 12/10/16 11:00 12/28/16 10:27 Transderm-Scop - TD 1 patch Q72H KWAKU Administration Simethicone 40 mg 12/29/16 10:15 12/30/16 10:00 Mylicon Liquid - PO 40 mg BID KWAKU Administration ASSESSMENT/PLAN: Patient is a 76 year old male with a past medical history of IDDM, HTN and inguinal hernia. He presented to the emergency room on 06/27/2015 with a diverticular bleed s/p right hemicolectomy. His hospitalization was further complicated with a CVA with anoxic brain injury. He is s/p trach secondary to respiratory failure. He is currently tolerating room air, no pain behaviours on exam. Neurology: Anoxic brain injury s/p brainstem CVA - at baseline Functional quadriplegia secondary to anoxic brain injury Assessment/Plan: Requires total care, on continuous feeds He is unable to participate in any activities of daily living -requires 24 hour care Pulmonary: Respiratory failure secondary to anoxic brain injury - resolved Assessment/Plan: Tolerating room air. Cardiology: Hypertension - chronic Assessment/Plan: Hypertension On Norvasc 10mg daily, Lisinopril and Lopressor 150mg BID Endocrine: Diabetes - chronic Assessment/Plan: Tight glycemic control, Capillary glucose ac/hs Integumentary: Stage III pressure ulcers buttocks - healed Assessment/Plan: Continue Prostat daily, low score on Eliseo scale Monitor skin integrity, turn and position q2 F.E.N. NPO - all meds through GT Glucerna with water flushes via GT Prostat for treatment of pressure ulcers Functional quadraplegia Monitor for dehydration Simethicone added for mild abdominal bloating Next set of labs due on January 01. Prophylaxis: DVT: SCDs - both legs. No AC: contraindicated secondary to history of GI bleed GI Regimen: Ranitidine BID Bowel regimen: deferred - secondary to soft stools He is bed bound and a total care Code Status: Patient continues to require inpatient care. DNR. Visit type - Emergency Visit Emergency Visit: Yes ED Registration Date: 06/27/15 Care time: The patient presented to the Emergency Department on the above date and was hospitalized for further evaluation of their emergent condition. - New Patient This patient is new to me today: No - Critical Care Critical Care patient: No - Discharge Referral Referred to [facility] Med P.C.: No
[2016-12-30] MEDS: INSULIN DETEMIR 100 UNITS/ML MDV SQ SCH (22:22)
[2016-12-30] MEDS: ACETAMINOPHEN 650 MG/20.3 ML ORAL SOLUTION (CUPS) GT PRN (22:32)
[2016-12-31] MEDS: INSULIN SLIDING SCALE (NOVOLOG) 1 VIAL SQ SCH ×4 (06:18→22:36)
[2016-12-31] MEDS: RANITIDINE HCL 150 MG/10 ML UNIT-DOSE CUP PO SCH ×2 (10:00→22:23)
[2016-12-31] MEDS: MULTIVITAMINS LIQUID THERAPEUTIC 118 ML BOT GT SCH (10:00)
[2016-12-31] MEDS: METOPROLOL TARTRATE 50 MG TABLET (FP) GT SCH ×2 (10:00→22:23)
[2016-12-31] MEDS: AMINO ACIDS/PROTEIN HYDROLYS SUGAR-FREE 30 ML PACKET PO SCH (10:00)
[2016-12-31] MEDS: LISINOPRIL 20 MG TABLET (FP) GT SCH (10:00)
[2016-12-31] MEDS: SIMETHICONE 40 MG/0.6 ML BOTTLE PO SCH ×2 (10:00→22:23)
[2016-12-31] MEDS: amLODIPine BESYLATE 10 MG TABLET (FP) GT SCH (10:00)
[2016-12-31] MEDS: SCOPOLAMINE HYDROBROMIDE 1 PATCH PATCH.TD72 TD SCH (13:00)
--- NOTE | 2016-12-31 15:21 | PN ---
Physical Exam: SUBJECTIVE: Patient seen and examined. Noted to be febrile overnight, will monitor for now New GT placed yesterday. OBJECTIVE: Vital Signs Period Temp Pulse Resp BP Sys/Santiago Pulse Ox Last 24 Hr 97.8 F-100.7 F 67-102 18-20 131-145/77-95 97 GENERAL: Asleep, is awake, comfortable at rest, Tolerating feeds HEAD: Normal with no signs of trauma NECK: Trach removed, site is c/d/i, no redness or drainage noted. LUNGS: Anterior lungs with scattered rhonchi HEART: Regular rate and rhythm, heart rate 80 - 90s ABDOMEN: new peg tube LUQ - on continuous feeds Minimal abdominal distention, + bowel sounds, abdomen soft, simethecone added BID. NEUROLOGICAL: at baseline, opens eyes intermittently SKIN: Healed stage 3 on sacrum Laboratory Results - last 24 hr 12/30/16 12/30/16 12/31/16 16:54 22:14 06:16 POC Glucometer 161 188 161 12/31/16 11:18 POC Glucometer 120 Active Medications Generic Name Dose Route Start Last Admin Trade Name Freq PRN Reason Stop Dose Admin Acetaminophen 650 mg 05/26/16 14:23 12/30/16 22:32 Tylenol Oral Solution - GT 650 mg Q4H PRN Administration FEVER Amino Acids 30 ml 06/28/16 10:00 12/31/16 10:00 Prostat Sugar-Free Packet - PO 30 ml DAILY KWAKU Administration Amlodipine Besylate 10 mg 12/30/15 10:00 12/31/16 10:00 Norvasc - GT 10 mg DAILY KWAKU Administration Insulin Aspart 1 vial 09/17/16 16:30 12/31/16 11:27 Novolog Vial Sliding Scale - SQ Not Given ACHS [facility] Protocol Insulin Detemir 20 units 09/21/16 13:25 12/30/16 22:22 Levemir Vial SQ 20 units HS KWAKU Administration Lisinopril 40 mg 12/30/15 10:00 12/31/16 10:00 Prinivil GT 40 mg DAILY KWAKU Administration Metoprolol Tartrate 150 mg 11/28/16 10:00 12/31/16 10:00 Lopressor - GT 150 mg BID KWAKU Administration Multi-Ingredient Lotion 1 applic 11/07/16 11:55 Eucerin (Large Jar) - TP BID PRN DRY SKIN Multivitamins 5 ml 10/16/16 16:30 12/31/16 10:00 Thera-Plus - GT 5 ml DAILY KWAKU Administration Ranitidine HCl 150 mg 08/27/16 12:15 12/31/16 10:00 Zantac Oral Solution - PO 150 mg BID KWAKU Administration Scopolamine HBr 1 patch 12/10/16 11:00 12/28/16 10:27 Transderm-Scop - TD 1 patch Q72H KWAKU Administration Simethicone 40 mg 12/29/16 10:15 12/31/16 10:00 Mylicon Liquid - PO 40 mg BID KWAKU Administration ASSESSMENT/PLAN: Patient is a 76 year old male with a past medical history of IDDM, HTN and inguinal hernia. He presented to the emergency room on 06/27/2015 with a diverticular bleed s/p right hemicolectomy. His hospitalization was further complicated with a CVA with anoxic brain injury. He is s/p trach secondary to respiratory failure. He is currently tolerating room air, no pain behaviours on exam. Neurology: Anoxic brain injury s/p brainstem CVA - at baseline Functional quadriplegia secondary to anoxic brain injury Assessment/Plan: Requires total care, on continuous feeds He is unable to participate in any activities of daily living -requires 24 hour care Pulmonary: Respiratory failure secondary to anoxic brain injury - resolved Assessment/Plan: Tolerating room air. Cardiology: Hypertension - chronic Assessment/Plan: Hypertension On Norvasc 10mg daily, Lisinopril and Lopressor 150mg BID Endocrine: Diabetes - chronic Assessment/Plan: Tight glycemic control, Capillary glucose ac/hs Integumentary: Stage III pressure ulcers buttocks - healed Assessment/Plan: Continue Prostat daily, low score on Eliseo scale Monitor skin integrity, turn and position q2 F.E.N. NPO - all meds through GT Glucerna with water flushes via GT Prostat for treatment of pressure ulcers Functional quadraplegia Monitor for dehydration Simethicone added for mild abdominal bloating Labs in a.m. Prophylaxis: DVT: SCDs - both legs. No AC: contraindicated secondary to history of GI bleed GI Regimen: Ranitidine BID Bowel regimen: deferred - secondary to soft stools He is bed bound and a total care Code Status: Patient continues to require inpatient care. DNR. Visit type - Emergency Visit Emergency Visit: Yes ED Registration Date: 06/27/15 Care time: The patient presented to the Emergency Department on the above date and was hospitalized for further evaluation of their emergent condition. - New Patient This patient is new to me today: No - Critical Care Critical Care patient: No - Discharge Referral Referred to [facility] Med P.C.: No
[2016-12-31] MEDS: INSULIN DETEMIR 100 UNITS/ML MDV SQ SCH (22:24)
[2017-01-01] MEDS: INSULIN SLIDING SCALE (NOVOLOG) 1 VIAL SQ SCH ×4 (06:35→22:22)
[2017-01-01 08:05] LABS: ALBUMIN 3.1 g/dl (3.4-5.0); ALK PHOS 109 U/L (45-117); ANION GAP 9 (8-16); BILIRUBIN,TOTAL 0.3 mg/dL (0.2-1.0); CALCIUM 9.2 mg/dL (8.5-10.1); CO2 30 mmol/L (21-32); CREATININE 0.9 mg/dL (0.7-1.3); GLUCOSE,RANDOM 171 mg/dL (74-106); SGOT/AST 20 U/L (15-37); SGPT/ALT 26 U/L (12-78); TOT PROT 7.8 g/dl (6.4-8.2)
[2017-01-01 08:24] LABS: EOSINOPHIL 3.6 % (0-4.5); MCH 29.6 pg (25.7-33.7); MCHC 33.2 g/dl (32.0-35.9); MEAN CELL VOLUME 89.2 fl (80-96); MEAN PLT VOLUME 10.4 fl (7.5-11.1); RDW 14.2 % (11.9-15.9); WHITE BLOOD COUNT 17.9 K/mm3 (4.0-10.0)
[2017-01-01 08:59] LABS: PLATELET COUNT 190 K/MM3 (134-434); PLATELET ESTIMATE ADEQUATE (NORMAL)
[2017-01-01] MEDS: METOPROLOL TARTRATE 50 MG TABLET (FP) GT SCH ×2 (09:55→22:24)
[2017-01-01] MEDS: RANITIDINE HCL 150 MG/10 ML UNIT-DOSE CUP PO SCH ×2 (10:03→22:23)
[2017-01-01] MEDS: AMINO ACIDS/PROTEIN HYDROLYS SUGAR-FREE 30 ML PACKET PO SCH (10:04)
[2017-01-01] MEDS: LISINOPRIL 20 MG TABLET (FP) GT SCH (10:05)
[2017-01-01] MEDS: amLODIPine BESYLATE 10 MG TABLET (FP) GT SCH (10:05)
[2017-01-01] MEDS: MULTIVITAMINS LIQUID THERAPEUTIC 118 ML BOT GT SCH (10:06)
[2017-01-01] MEDS: SIMETHICONE 40 MG/0.6 ML BOTTLE PO SCH ×2 (10:06→22:24)
--- NOTE | 2017-01-01 15:38 | PN ---
Physical Exam: SUBJECTIVE: Patient seen and examined. Appears at his baseline. In no acute distress GTube replaced over the weekend: patent, receiving Glucerna feeds WBC elevated @17.9, remains afebrile, will send blood cultures and urine cultures Monitor. OBJECTIVE: Vital Signs Period Temp Pulse Resp BP Sys/Santiago Pulse Ox Last 24 Hr 98.4 F-99.0 F 73-101 19-24 133-145/66-93 95-98 GENERAL: Asleep, is awake, comfortable at rest, Tolerating feeds HEAD: Normal with no signs of trauma NECK: Trach removed, site is c/d/i, no redness or drainage noted. LUNGS: Anterior lungs with scattered rhonchi HEART: Regular rate and rhythm, heart rate 80 - 90s ABDOMEN: new peg tube LUQ - on continuous feeds Minimal abdominal distention, + bowel sounds, abdomen soft, simethecone added BID. NEUROLOGICAL: at baseline, opens eyes intermittently SKIN: Healed stage 3 on sacrum Laboratory Results - last 24 hr 12/31/16 12/31/16 01/01/17 16:53 22:29 06:00 WBC 17.9 H D RBC 3.67 L Hgb 10.9 L Hct 32.7 L MCV 89.2 MCHC 33.2 RDW 14.2 Plt Count 190 MPV 10.4 D Neutrophils % 64.0 D Lymphocytes % 26.6 D Monocytes % 4.8 Eosinophils % 3.6 Basophils % 1.0 Platelet Estimate Adequate Platelet Comment No clumping noted Sodium Potassium Chloride Carbon Dioxide Anion Gap BUN Creatinine Creat Clearance w eGFR POC Glucometer 174 154 Random Glucose Calcium Total Bilirubin AST ALT Alkaline Phosphatase Total Protein Albumin 01/01/17 01/01/17 01/01/17 06:00 06:32 11:43 WBC RBC Hgb Hct MCV MCHC RDW Plt Count MPV Neutrophils % Lymphocytes % Monocytes % Eosinophils % Basophils % Platelet Estimate Platelet Comment Sodium 148 H Potassium 4.2 Chloride 109 H Carbon Dioxide 30 Anion Gap 9 BUN 28 H D Creatinine 0.9 Creat Clearance w eGFR > 60 POC Glucometer 185 149 Random Glucose 171 H D Calcium 9.2 Total Bilirubin 0.3 D AST 20 ALT 26 D Alkaline Phosphatase 109 Total Protein 7.8 Albumin 3.1 L Active Medications Generic Name Dose Route Start Last Admin Trade Name Freq PRN Reason Stop Dose Admin Acetaminophen 650 mg 05/26/16 14:23 03/04/17 22:32 Tylenol Oral Solution - GT 650 mg Q4H PRN Administration FEVER Amino Acids 30 ml 06/28/16 10:00 01/01/17 10:04 Prostat Sugar-Free Packet - PO 30 ml DAILY KWAKU Administration Amlodipine Besylate 10 mg 12/30/15 10:00 01/01/17 10:05 Norvasc - GT 10 mg DAILY KWAKU Administration Insulin Aspart 1 vial 09/17/16 16:30 01/01/17 11:44 Novolog Vial Sliding Scale - SQ Not Given ACHS [facility] Protocol Insulin Detemir 20 units 09/21/16 13:25 12/31/16 22:24 Levemir Vial SQ 20 units HS KWAKU Administration Lisinopril 40 mg 12/30/15 10:00 01/01/17 10:05 Prinivil GT 40 mg DAILY KWAKU Administration Metoprolol Tartrate 150 mg 11/28/16 10:00 01/01/17 09:55 Lopressor - GT 150 mg BID KWAKU Administration Multi-Ingredient Lotion 1 applic 11/07/16 11:55 Eucerin (Large Jar) - TP BID PRN DRY SKIN Multivitamins 5 ml 10/16/16 16:30 01/01/17 10:06 Thera-Plus - GT 5 ml DAILY KWAKU Administration Ranitidine HCl 150 mg 08/27/16 12:15 01/01/17 10:03 Zantac Oral Solution - PO 150 mg BID KWAKU Administration Scopolamine HBr 1 patch 12/10/16 11:00 12/31/16 13:00 Transderm-Scop - TD 1 patch Q72H KWAKU Administration Simethicone 40 mg 12/29/16 10:15 01/01/17 10:06 Mylicon Liquid - PO 40 mg BID KWAKU Administration ASSESSMENT/PLAN: Patient is a 76 year old male with a past medical history of IDDM, HTN and inguinal hernia. He presented to the emergency room on 06/27/2015 with a diverticular bleed s/p right hemicolectomy. His hospitalization was further complicated with a CVA with anoxic brain injury. He is s/p trach secondary to respiratory failure. He is currently tolerating room air, no pain behaviours on exam. ID: Leukocytosis Assessment/Plan: WBC inreased to 17.9, afebrile, non toxic appearing Blood cultures x 2 sent, monitor Neurology: Anoxic brain injury s/p brainstem CVA - at baseline Functional quadriplegia secondary to anoxic brain injury Assessment/Plan: Requires total care, on continuous feeds He is unable to participate in any activities of daily living -requires 24 hour care Pulmonary: Respiratory failure secondary to anoxic brain injury - resolved Assessment/Plan: Tolerating room air. Cardiology: Hypertension - chronic Assessment/Plan: Hypertension On Norvasc 10mg daily, Lisinopril and Lopressor 150mg BID Endocrine: Diabetes - chronic Assessment/Plan: Tight glycemic control, Capillary glucose ac/hs Integumentary: Stage III pressure ulcers buttocks - healed Assessment/Plan: Continue Prostat daily, low score on Eliseo scale Monitor skin integrity, turn and position q2 F.E.N. NPO - all meds through GT Glucerna with water flushes via GT Prostat for treatment of pressure ulcers Functional quadraplegia Monitor for dehydration Simethicone added for mild abdominal bloating Prophylaxis: DVT: SCDs - both legs. No AC: contraindicated secondary to history of GI bleed GI Regimen: Ranitidine BID Bowel regimen: deferred - secondary to soft stools He is bed bound and a total care Code Status: Patient continues to require inpatient care. DNR. Visit type - Emergency Visit Emergency Visit: Yes ED Registration Date: 06/27/15 Care time: The patient presented to the Emergency Department on the above date and was hospitalized for further evaluation of their emergent condition. - New Patient This patient is new to me today: No - Critical Care Critical Care patient: No - Discharge Referral Referred to [facility] Med P.C.: No
[2017-01-01] MEDS: INSULIN DETEMIR 100 UNITS/ML MDV SQ SCH (22:22)
[2017-01-02] MEDS: INSULIN SLIDING SCALE (NOVOLOG) 1 VIAL SQ SCH ×4 (06:10→23:24)
[2017-01-02] MEDS: METOPROLOL TARTRATE 50 MG TABLET (FP) GT SCH ×2 (10:45→23:26)
[2017-01-02] MEDS: SIMETHICONE 40 MG/0.6 ML BOTTLE PO SCH ×2 (10:46→23:25)
[2017-01-02] MEDS: LISINOPRIL 20 MG TABLET (FP) GT SCH (10:46)
[2017-01-02] MEDS: amLODIPine BESYLATE 10 MG TABLET (FP) GT SCH (10:46)
[2017-01-02] MEDS: RANITIDINE HCL 150 MG/10 ML UNIT-DOSE CUP PO SCH ×2 (10:47→23:24)
[2017-01-02] MEDS: AMINO ACIDS/PROTEIN HYDROLYS SUGAR-FREE 30 ML PACKET PO SCH (10:48)
[2017-01-02] MEDS: MULTIVITAMINS LIQUID THERAPEUTIC 118 ML BOT GT SCH (10:49)
--- NOTE | 2017-01-02 13:06 | PN ---
Physical Exam: SUBJECTIVE: Patient seen and examined. He appears at his baseline. His WBC elevated yesterday, blood cultures sent. Non toxic appearing, vitals stable. Continue to monitor for now OBJECTIVE: Vital Signs Period Temp Pulse Resp BP Sys/Santiago Pulse Ox Last 24 Hr 98 F-98.9 F 80-90 20-20 133-144/70-90 95 GENERAL: Asleep, is awake, comfortable at rest, Tolerating feeds HEAD: Normal with no signs of trauma NECK: Trach removed, site is c/d/i, no redness or drainage noted. LUNGS: Anterior lungs with scattered rhonchi HEART: Regular rate and rhythm, heart rate 80 - 90s ABDOMEN: new peg tube LUQ - on continuous feeds Minimal abdominal distention, + bowel sounds, abdomen soft, simethecone added BID. NEUROLOGICAL: at baseline, opens eyes intermittently SKIN: Healed stage 3 on sacrum Laboratory Results - last 24 hr 01/01/17 01/01/17 01/02/17 18:09 22:19 05:50 POC Glucometer 185 160 156 Active Medications Generic Name Dose Route Start Last Admin Trade Name Freq PRN Reason Stop Dose Admin Acetaminophen 650 mg 05/26/16 14:23 12/30/16 22:32 Tylenol Oral Solution - GT 650 mg Q4H PRN Administration FEVER Amino Acids 30 ml 06/28/16 10:00 01/02/17 10:48 Prostat Sugar-Free Packet - PO 30 ml DAILY KWAKU Administration Amlodipine Besylate 10 mg 12/30/15 10:00 01/02/17 10:46 Norvasc - GT 10 mg DAILY KWAKU Administration Insulin Aspart 1 vial 09/17/16 16:30 01/02/17 06:10 Novolog Vial Sliding Scale - SQ 4 units ACHS KWAKU Administration Protocol Insulin Detemir 20 units 09/21/16 13:25 01/01/17 22:22 Levemir Vial SQ 20 units HS KWAKU Administration Lisinopril 40 mg 12/30/15 10:00 01/02/17 10:46 Prinivil GT 40 mg DAILY KWAKU Administration Metoprolol Tartrate 150 mg 11/28/16 10:00 01/02/17 10:45 Lopressor - GT 150 mg BID KWAKU Administration Multi-Ingredient Lotion 1 applic 11/07/16 11:55 Eucerin (Large Jar) - TP BID PRN DRY SKIN Multivitamins 5 ml 10/16/16 16:30 01/02/17 10:49 Thera-Plus - GT 5 ml DAILY KWAKU Administration Ranitidine HCl 150 mg 08/27/16 12:15 01/02/17 10:47 Zantac Oral Solution - PO 150 mg BID KWAKU Administration Scopolamine HBr 1 patch 12/10/16 11:00 12/31/16 13:00 Transderm-Scop - TD 1 patch Q72H KWAKU Administration Simethicone 40 mg 12/29/16 10:15 01/02/17 10:46 Mylicon Liquid - PO 40 mg BID KWAKU Administration ASSESSMENT/PLAN: Patient is a 76 year old male with a past medical history of IDDM, HTN and inguinal hernia. He presented to the emergency room on 06/27/2015 with a diverticular bleed s/p right hemicolectomy. His hospitalization was further complicated with a CVA with anoxic brain injury. He is s/p trach secondary to respiratory failure. He is currently tolerating room air, no pain behaviours on exam. ID: Leukocytosis Assessment/Plan: yesterday WBC increased to 17.9, afebrile, non toxic appearing Blood cultures x 2 sent, monitor Neurology: Anoxic brain injury s/p brainstem CVA - at baseline Functional quadriplegia secondary to anoxic brain injury Assessment/Plan: Requires total care, on continuous feeds He is unable to participate in any activities of daily living -requires 24 hour care Pulmonary: Respiratory failure secondary to anoxic brain injury - resolved Assessment/Plan: - Tolerating room air. Cardiology: Hypertension - chronic Assessment/Plan: Hypertension On Norvasc 10mg daily, Lisinopril and Lopressor 150mg BID Endocrine: Diabetes - chronic Assessment/Plan: Tight glycemic control, Capillary glucose ac/hs Integumentary: Stage III pressure ulcers buttocks - healed - high risk for skin breakdown, turn and pos q2/air mattress Assessment/Plan: Continue Prostat daily, low score on Eliseo scale F.E.N. NPO - all meds through GT Glucerna with water flushes via GT Prostat for treatment of pressure ulcers Functional quadraplegia Monitor for dehydration Simethicone added for mild abdominal bloating Prophylaxis: DVT: SCDs - both legs. No AC: contraindicated secondary to history of GI bleed GI Regimen: Ranitidine BID Bowel regimen: deferred - secondary to soft stools He is bed bound and a total care Code Status: Patient continues to require inpatient care. DNR. Visit type - Emergency Visit Emergency Visit: Yes ED Registration Date: 06/27/15 Care time: The patient presented to the Emergency Department on the above date and was hospitalized for further evaluation of their emergent condition. - New Patient This patient is new to me today: No - Critical Care Critical Care patient: No - Discharge Referral Referred to [facility] Med P.C.: No
[2017-01-02] MEDS: INSULIN DETEMIR 100 UNITS/ML MDV SQ SCH (23:24)
[2017-01-03] MEDS: INSULIN SLIDING SCALE (NOVOLOG) 1 VIAL SQ SCH ×4 (06:43→21:26)
[2017-01-03] MEDS: AMINO ACIDS/PROTEIN HYDROLYS SUGAR-FREE 30 ML PACKET PO SCH (12:35)
[2017-01-03] MEDS: RANITIDINE HCL 150 MG/10 ML UNIT-DOSE CUP PO SCH ×2 (12:35→21:27)
[2017-01-03] MEDS: SIMETHICONE 40 MG/0.6 ML BOTTLE PO SCH ×2 (12:35→21:28)
[2017-01-03] MEDS: amLODIPine BESYLATE 10 MG TABLET (FP) GT SCH (12:36)
[2017-01-03] MEDS: METOPROLOL TARTRATE 50 MG TABLET (FP) GT SCH ×2 (12:36→21:28)
[2017-01-03] MEDS: SCOPOLAMINE HYDROBROMIDE 1 PATCH PATCH.TD72 TD SCH (12:37)
[2017-01-03] MEDS: MULTIVITAMINS LIQUID THERAPEUTIC 118 ML BOT GT SCH (12:37)
[2017-01-03] MEDS: LISINOPRIL 20 MG TABLET (FP) GT SCH (12:37)
[2017-01-03] MEDS: INSULIN DETEMIR 100 UNITS/ML MDV SQ SCH (21:27)
[2017-01-04] MEDS: INSULIN SLIDING SCALE (NOVOLOG) 1 VIAL SQ SCH ×4 (06:40→21:14)
[2017-01-04] MEDS: METOPROLOL TARTRATE 50 MG TABLET (FP) GT SCH ×2 (10:35→21:14)
[2017-01-04] MEDS: SIMETHICONE 40 MG/0.6 ML BOTTLE PO SCH ×2 (10:50→21:14)
[2017-01-04] MEDS: RANITIDINE HCL 150 MG/10 ML UNIT-DOSE CUP PO SCH ×2 (10:50→21:13)
[2017-01-04] MEDS: LISINOPRIL 20 MG TABLET (FP) GT SCH (10:50)
[2017-01-04] MEDS: MULTIVITAMINS LIQUID THERAPEUTIC 118 ML BOT GT SCH (10:55)
[2017-01-04] MEDS: amLODIPine BESYLATE 10 MG TABLET (FP) GT SCH (11:22)
[2017-01-04] MEDS: AMINO ACIDS/PROTEIN HYDROLYS SUGAR-FREE 30 ML PACKET PO SCH (11:25)
--- NOTE | 2017-01-04 15:55 | PN ---
Physical Exam: SUBJECTIVE: Patient seen and examined. OBJECTIVE: Vital Signs Period Temp Pulse Resp BP Sys/Santiago Pulse Ox Last 24 Hr 97.5 F-98.3 F 64-88 20-20 120-142/77-88 98-98 GENERAL/NEURO: Eyes open. Non-verbal. Does not follow commands. Non-purposeful movement. HEAD: Normal with no signs of trauma. NECK: Tracheostomy site closed, well-healed. EYES: PERRL, extraocular movements intact, sclera anicteric, conjunctiva clear. No ptosis. ENT: Ears normal, nares patent, oropharynx clear without exudates, moist mucous membranes. LUNGS: CTA HEART: Regular rate and rhythm, S1, S2 without murmur, rub or gallop. ABDOMEN: Soft, nontender, nondistended, normoactive bowel sounds, no guarding, no rebound, no hepatosplenomegaly, no masses. PEG tube in situ, skin clean, dry , no sign of infection : Condom cath to castellano bag draining clear yellow urine EXTREMITIES: 2+ pulses, warm, well-perfused, no edema. SKIN: Healed stage III right and left buttock pressure ulcers with several minor fissures oozing scant blood CBCD WBC 17.9 K/mm3 (4.0-10.0) H D 01/01/17 06:00 RBC 3.67 M/mm3 (4.00-5.60) L 01/01/17 06:00 Hgb 10.9 GM/dL (11.7-16.9) L 01/01/17 06:00 Hct 32.7 % (35.4-49) L 01/01/17 06:00 MCV 89.2 fl (80-96) 01/01/17 06:00 MCHC 33.2 g/dl (32.0-35.9) 01/01/17 06:00 RDW 14.2 % (11.9-15.9) 01/01/17 06:00 Plt Count 190 K/MM3 (134-434) 01/01/17 06:00 MPV 10.4 fl (7.5-11.1) D 01/01/17 06:00 CMP Sodium 148 mmol/L (136-145) H 01/01/17 06:00 Potassium 4.2 mmol/L (3.5-5.1) 01/01/17 06:00 Chloride 109 mmol/L (98-107) H 01/01/17 06:00 Carbon Dioxide 30 mmol/L (21-32) 01/01/17 06:00 Anion Gap 9 (8-16) 01/01/17 06:00 BUN 28 mg/dL (7-18) H D 01/01/17 06:00 Creatinine 0.9 mg/dL (0.7-1.3) 01/01/17 06:00 Creat Clearance w eGFR > 60 (>60) 01/01/17 06:00 Calcium 9.2 mg/dL (8.5-10.1) 01/01/17 06:00 Total Bilirubin 0.3 mg/dL (0.2-1.0) D 01/01/17 06:00 AST 20 U/L (15-37) 01/01/17 06:00 ALT 26 U/L (12-78) D 01/01/17 06:00 Alkaline Phosphatase 109 U/L (45-117) 01/01/17 06:00 Total Protein 7.8 g/dl (6.4-8.2) 01/01/17 06:00 Albumin 3.1 g/dl (3.4-5.0) L 01/01/17 06:00 Current Medications Generic Name Dose Route Start Last Admin Trade Name Freq PRN Reason Stop Dose Admin Acetaminophen 650 mg 05/26/16 14:23 12/30/16 22:32 Tylenol Oral Solution - GT 650 mg Q4H PRN Administration FEVER Amino Acids 30 ml 06/28/16 10:00 01/04/17 11:25 Prostat Sugar-Free Packet - PO 30 ml DAILY KWAKU Administration Amlodipine Besylate 10 mg 12/30/15 10:00 01/04/17 11:22 Norvasc - GT 10 mg DAILY KWAKU Administration Insulin Aspart 1 vial 09/17/16 16:30 01/04/17 11:40 Novolog Vial Sliding Scale - SQ Not Given ACHS [facility] Protocol Insulin Detemir 20 units 09/21/16 13:25 01/03/17 21:27 Levemir Vial SQ 20 units HS KWAKU Administration Lisinopril 40 mg 12/30/15 10:00 01/04/17 10:50 Prinivil GT 40 mg DAILY KWAKU Administration Metoprolol Tartrate 150 mg 11/28/16 10:00 01/04/17 10:35 Lopressor - GT 150 mg BID KWAKU Administration Multi-Ingredient Lotion 1 applic 11/07/16 11:55 Eucerin (Large Jar) - TP BID PRN DRY SKIN Multivitamins 5 ml 10/16/16 16:30 01/04/17 10:55 Thera-Plus - GT 5 ml DAILY KWAKU Administration Ranitidine HCl 150 mg 08/27/16 12:15 01/04/17 10:50 Zantac Oral Solution - PO 150 mg BID KWAKU Administration Scopolamine HBr 1 patch 12/10/16 11:00 01/03/17 12:37 Transderm-Scop - TD 1 patch Q72H KWAKU Administration Simethicone 40 mg 12/29/16 10:15 01/04/17 10:50 Mylicon Liquid - PO 40 mg BID KWAKU Administration ASSESSMENT/PLAN: 75 year old male with PMH of HTN, IDDM, inguinal hernia who presented to the ED with diverticular bleed s/p right hemicolectomy. 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 Leukocytosis --WBC spike to 17.9k on 01/01, afebrile --urine is cloudy --will get UA and UC --01/01 blood cultures NGTD Central sleep apnea --seen and evaluated by pulmonary, breathing pauses are due to central apneas secondary to anoxic brain injury; no observed evidence of GRANT --no desaturation --O2 as needed Anoxic brain injury s/p brainstem CVAs --mental status unchanged Respiratory failure secondary to anoxic brain injury, resolved --on room air, nasal cannula PRN --trach removed 09/09/16 --duonebs PRN Hydronephrosis, chronic --renal function stable Right inguinal hernia --incidental finding on CT --no surgical intervention Functional quadriplegia secondary to anoxic brain injury --inability to feed, turn, or toilet independently; requires complete care Hypertension --BP well-controlled --continue lisinopril, metoprolol, amlodipine Stage III pressure ulcers buttocks, healed IDDM --Levemir --Novolog sliding scale coverage --fingersticks F/E/N Fluids/Nutrition: Diet: TF Glucerna 1.5 @ 70 ml/hr with 65 ml/hr water flushes and Prostat SF 1x/day. Electrolytes: replete as indicated DVT prophylaxis --SCDs bilaterally --no chemical anticoagulation 2/2 spontaneous gluteal bleed and severe GI bleed Dispo: continues to require inpatient care. DNR. Visit type - Emergency Visit Emergency Visit: Yes ED Registration Date: 06/27/15 Care time: The patient presented to the Emergency Department on the above date and was hospitalized for further evaluation of their emergent condition. - New Patient This patient is new to me today: No - Critical Care Critical Care patient: No
[2017-01-04 20:53] LABS: URINE APPEARANCE SLCLOUDY; URINE BILIRUBIN NEGATIVE (NEGATIVE); URINE BLOOD NEGATIVE (NEGATIVE); URINE COLOR YELLOW; URINE GLUCOSE (UA) NEGATIVE (NEGATIVE); URINE KETONE NEGATIVE (NEGATIVE); URINE NITRITE NEGATIVE (NEGATIVE); URINE PROTEIN NEGATIVE (NEGATIVE); URINE UROBILINOGEN NEGATIVE E.U./dl (0.2-1.0)
[2017-01-04] MEDS: INSULIN DETEMIR 100 UNITS/ML MDV SQ SCH (21:13)
[2017-01-04] MEDS: ACETAMINOPHEN 650 MG/20.3 ML ORAL SOLUTION (CUPS) GT PRN (21:13)
[2017-01-04 21:27] LABS: URINE LEUK ESTERASE TRACE (NEGATIVE)
[2017-01-04 21:31] LABS: URINE BACTERIA RARE /hpf (NONE SEEN); URINE MUCUS RARE; URINE RBC 1 /hpf (0-3); URINE WBC 10 /hpf (3-5)
[2017-01-05] MEDS: INSULIN SLIDING SCALE (NOVOLOG) 1 VIAL SQ SCH ×4 (06:30→22:50)
[2017-01-05] MEDS: LISINOPRIL 20 MG TABLET (FP) GT SCH (10:00)
--- NOTE | 2017-01-05 10:09 | HOSP ---
Subjective - Review of Symptoms Events since last encounter: 01/04 urinalysis shows 10 WBCs, culture pending. Will follow results. Physical Examination Vital Signs: Vital Signs Temperature 97.4 F L 01/05/17 09:56 Pulse Rate 85 01/05/17 09:56 Respiratory Rate 20 01/05/17 09:56 Blood Pressure 155/88 01/05/17 09:56 O2 Sat by Pulse Oximetry (%) 96 01/05/17 09:00 Labs: CBC, BMP 01/01/17 06:00 01/01/17 06:00
[2017-01-05] MEDS: SIMETHICONE 40 MG/0.6 ML BOTTLE PO SCH ×2 (10:45→22:50)
[2017-01-05] MEDS: AMINO ACIDS/PROTEIN HYDROLYS SUGAR-FREE 30 ML PACKET PO SCH (10:50)
[2017-01-05] MEDS: amLODIPine BESYLATE 10 MG TABLET (FP) GT SCH (11:58)
[2017-01-05] MEDS: RANITIDINE HCL 150 MG/10 ML UNIT-DOSE CUP PO SCH ×2 (11:58→22:50)
[2017-01-05] MEDS: METOPROLOL TARTRATE 50 MG TABLET (FP) GT SCH ×2 (11:59→22:49)
[2017-01-05] MEDS: MULTIVITAMINS LIQUID THERAPEUTIC 118 ML BOT GT SCH (12:00)
--- NOTE | 2017-01-05 13:45 | PN ---
Physical Exam: SUBJECTIVE: Patient seen and examined at bedside. OBJECTIVE: Vital Signs Period Temp Pulse Resp BP Sys/Santiago Pulse Ox Last 24 Hr 97.1 F-99.8 F 63-85 20-20 120-155/77-88 96-96 GENERAL/NEURO: Eyes open. Non-verbal. Does not follow commands. Non-purposeful movement. HEAD: Normal with no signs of trauma. NECK: Tracheostomy site closed, well-healed. EYES: PERRL, extraocular movements intact, sclera anicteric, conjunctiva clear. No ptosis. ENT: Ears normal, nares patent, oropharynx clear without exudates, moist mucous membranes. LUNGS: CTA HEART: Regular rate and rhythm, S1, S2 without murmur, rub or gallop. ABDOMEN: Soft, nontender, nondistended, normoactive bowel sounds, no guarding, no rebound, no hepatosplenomegaly, no masses. PEG tube in situ, skin clean, dry , no sign of infection : Condom cath to castellano bag draining cloudy urine. EXTREMITIES: 2+ pulses, warm, well-perfused, no edema. SKIN: Healed stage III right and left buttock pressure ulcers with several minor fissures oozing scant blood Laboratory Results - last 24 hr 01/04/17 01/04/17 01/04/17 16:59 20:00 21:10 POC Glucometer 136 163 Urine Color Yellow Urine Appearance Slcloudy Urine pH 7.0 Ur Specific [place] 1.016 Urine Protein Negative Urine Glucose (UA) Negative Urine Ketones Negative Urine Blood Negative Urine Nitrite Negative Urine Bilirubin Negative Urine Urobilinogen Negative Ur Leukocyte Esterase Trace H Urine RBC 1 Urine WBC 10 Ur Epithelial Cells Rare Urine Bacteria Rare Urine Mucus Rare 01/05/17 06:25 POC Glucometer 112 Urine Color Urine Appearance Urine pH Ur Specific [place] Urine Protein Urine Glucose (UA) Urine Ketones Urine Blood Urine Nitrite Urine Bilirubin Urine Urobilinogen Ur Leukocyte Esterase Urine RBC Urine WBC Ur Epithelial Cells Urine Bacteria Urine Mucus Active Medications Generic Name Dose Route Start Last Admin Trade Name Freq PRN Reason Stop Dose Admin Acetaminophen 650 mg 05/26/16 14:23 01/04/17 21:13 Tylenol Oral Solution - GT 650 mg Q4H PRN Administration FEVER Amino Acids 30 ml 06/28/16 10:00 01/05/17 10:50 Prostat Sugar-Free Packet - PO 30 ml DAILY KWAKU Administration Amlodipine Besylate 10 mg 12/30/15 10:00 01/05/17 11:58 Norvasc - GT 10 mg DAILY KWAKU Administration Insulin Aspart 1 vial 09/17/16 16:30 01/05/17 13:13 Novolog Vial Sliding Scale - SQ 4 units ACHS KWAKU Administration Protocol Insulin Detemir 20 units 09/21/16 13:25 01/04/17 21:13 Levemir Vial SQ 20 units HS KWAKU Administration Lisinopril 40 mg 12/30/15 10:00 01/05/17 10:00 Prinivil GT 40 mg DAILY KWAKU Administration Metoprolol Tartrate 150 mg 11/28/16 10:00 01/05/17 11:59 Lopressor - GT 150 mg BID KWAKU Administration Multi-Ingredient Lotion 1 applic 11/07/16 11:55 Eucerin (Large Jar) - TP BID PRN DRY SKIN Multivitamins 5 ml 10/16/16 16:30 01/05/17 12:00 Thera-Plus - GT 5 ml DAILY KWAKU Administration Ranitidine HCl 150 mg 08/27/16 12:15 01/05/17 11:58 Zantac Oral Solution - PO 150 mg BID KWAKU Administration Scopolamine HBr 1 patch 12/10/16 11:00 01/03/17 12:37 Transderm-Scop - TD 1 patch Q72H KWAKU Administration Simethicone 40 mg 12/29/16 10:15 01/05/17 10:45 Mylicon Liquid - PO 40 mg BID KWAKU Administration ASSESSMENT/PLAN: ASSESSMENT/PLAN: 75 year old male with PMH of HTN, IDDM, inguinal hernia who presented to the ED with diverticular bleed s/p right hemicolectomy. 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 Leukocytosis Pyuria --urine is cloudy, UA with 10 WBCs, culture pending --afebrile --cbc stat ordered --will hold off antibiotics until cbc results and urine culture results Central sleep apnea --seen and evaluated by pulmonary, breathing pauses are due to central apneas secondary to anoxic brain injury; no observed evidence of GRANT --no desaturation --O2 as needed Anoxic brain injury s/p brainstem CVAs --mental status unchanged Respiratory failure secondary to anoxic brain injury, resolved --on room air, nasal cannula PRN --trach removed 09/09/16 --duonebs PRN Hydronephrosis, chronic --renal function stable Right inguinal hernia --incidental finding on CT --no surgical intervention Functional quadriplegia secondary to anoxic brain injury --inability to feed, turn, or toilet independently; requires complete care Hypertension --BP well-controlled --continue lisinopril, metoprolol, amlodipine Stage III pressure ulcers buttocks, healed IDDM --Levemir --Novolog sliding scale coverage --fingersticks F/E/N Fluids/Nutrition: Diet: TF Glucerna 1.5 @ 70 ml/hr with 65 ml/hr water flushes and Prostat SF 1x/day. Electrolytes: replete as indicated DVT prophylaxis --SCDs bilaterally --no chemical anticoagulation 2/2 spontaneous gluteal bleed and severe GI bleed Dispo: continues to require inpatient care. DNR. Visit type - Emergency Visit Emergency Visit: Yes ED Registration Date: 06/27/15 Care time: The patient presented to the Emergency Department on the above date and was hospitalized for further evaluation of their emergent condition. - New Patient This patient is new to me today: No - Critical Care Critical Care patient: No
[2017-01-05 17:34] LABS: EOSINOPHIL 4.6 % (0-4.5); MCH 29.9 pg (25.7-33.7); MCHC 34.1 g/dl (32.0-35.9); MEAN CELL VOLUME 87.5 fl (80-96); MEAN PLT VOLUME 9.8 fl (7.5-11.1); NEUTROPHILS 64.6 % (42.8-82.8); PLATELET COUNT 216 K/MM3 (134-434); WHITE BLOOD COUNT 7.8 K/mm3 (4.0-10.0)
[2017-01-05] MEDS: INSULIN DETEMIR 100 UNITS/ML MDV SQ SCH (22:48)
[2017-01-06] MEDS: INSULIN SLIDING SCALE (NOVOLOG) 1 VIAL SQ SCH ×4 (06:24→22:43)
[2017-01-06] MEDS: METOPROLOL TARTRATE 50 MG TABLET (FP) GT SCH ×2 (11:27→23:08)
[2017-01-06] MEDS: SIMETHICONE 40 MG/0.6 ML BOTTLE PO SCH ×2 (11:29→23:57)
[2017-01-06] MEDS: amLODIPine BESYLATE 10 MG TABLET (FP) GT SCH (11:29)
[2017-01-06] MEDS: MULTIVITAMINS LIQUID THERAPEUTIC 118 ML BOT GT SCH (11:30)
[2017-01-06] MEDS: LISINOPRIL 20 MG TABLET (FP) GT SCH (11:30)
[2017-01-06] MEDS: AMINO ACIDS/PROTEIN HYDROLYS SUGAR-FREE 30 ML PACKET PO SCH (11:30)
[2017-01-06] MEDS: RANITIDINE HCL 150 MG/10 ML UNIT-DOSE CUP PO SCH ×2 (11:31→23:07)
[2017-01-06] MEDS: SCOPOLAMINE HYDROBROMIDE 1 PATCH PATCH.TD72 TD SCH (11:31)
[2017-01-06 15:49] LABS: URINE APPEARANCE CLEAR; URINE BILIRUBIN NEGATIVE (NEGATIVE); URINE BLOOD NEGATIVE (NEGATIVE); URINE COLOR YELLOW; URINE GLUCOSE (UA) NEGATIVE (NEGATIVE); URINE KETONE NEGATIVE (NEGATIVE); URINE LEUK ESTERASE NEGATIVE (NEGATIVE); URINE NITRITE NEGATIVE (NEGATIVE); URINE PROTEIN NEGATIVE (NEGATIVE); URINE UROBILINOGEN NEGATIVE E.U./dl (0.2-1.0)
[2017-01-06] MEDS: INSULIN DETEMIR 100 UNITS/ML MDV SQ SCH (23:08)
[2017-01-07] MEDS: INSULIN SLIDING SCALE (NOVOLOG) 1 VIAL SQ SCH ×4 (06:34→23:01)
--- NOTE | 2017-01-07 09:21 | PN ---
Physical Exam: SUBJECTIVE: Patient seen and examined OBJECTIVE: Vital Signs Period Temp Pulse Resp BP Sys/Santiago Pulse Ox Last 24 Hr 97.6 F-98.2 F 62-72 18-18 143-148/76-90 97-97 GENERAL/NEURO: Eyes open. Non-verbal. Does not follow commands. Non-purposeful movement. HEAD: Normal with no signs of trauma. NECK: Tracheostomy site closed, well-healed. EYES: PERRL, extraocular movements intact, sclera anicteric, conjunctiva clear. No ptosis. ENT: Ears normal, nares patent, oropharynx clear without exudates, moist mucous membranes. LUNGS: CTA HEART: Regular rate and rhythm, S1, S2 without murmur, rub or gallop. ABDOMEN: Soft, nontender, nondistended, normoactive bowel sounds, no guarding, no rebound, no hepatosplenomegaly, no masses. PEG tube in situ, skin clean, dry , no sign of infection : Condom cath to castellano bag draining cloudy urine. EXTREMITIES: 2+ pulses, warm, well-perfused, no edema. SKIN: Healed stage III right and left buttock pressure ulcers with several minor fissures oozing scant blood Laboratory Results - last 24 hr 01/06/17 01/06/17 01/06/17 11:38 15:00 16:45 POC Glucometer 170 137 Urine Color Yellow Urine Appearance Clear Urine pH 7.0 Ur Specific [place] 1.016 Urine Protein Negative Urine Glucose (UA) Negative Urine Ketones Negative Urine Blood Negative Urine Nitrite Negative Urine Bilirubin Negative Urine Urobilinogen Negative Ur Leukocyte Esterase Negative 01/06/17 01/07/17 22:40 06:33 POC Glucometer 122 142 Urine Color Urine Appearance Urine pH Ur Specific [place] Urine Protein Urine Glucose (UA) Urine Ketones Urine Blood Urine Nitrite Urine Bilirubin Urine Urobilinogen Ur Leukocyte Esterase Active Medications Generic Name Dose Route Start Last Admin Trade Name Freq PRN Reason Stop Dose Admin Acetaminophen 650 mg 05/26/16 14:23 01/04/17 21:13 Tylenol Oral Solution - GT 650 mg Q4H PRN Administration FEVER Amino Acids 30 ml 06/28/16 10:00 01/06/17 11:30 Prostat Sugar-Free Packet - PO 30 ml DAILY KWAKU Administration Amlodipine Besylate 10 mg 12/30/15 10:00 01/06/17 11:29 Norvasc - GT 10 mg DAILY KWAKU Administration Insulin Aspart 1 vial 09/17/16 16:30 01/07/17 06:34 Novolog Vial Sliding Scale - SQ Not Given ACHS [facility] Protocol Insulin Detemir 20 units 09/21/16 13:25 01/06/17 23:08 Levemir Vial SQ 20 units HS KWAKU Administration Lisinopril 40 mg 12/30/15 10:00 01/06/17 11:30 Prinivil GT 40 mg DAILY KWAKU Administration Metoprolol Tartrate 150 mg 11/28/16 10:00 01/06/17 23:08 Lopressor - GT 150 mg BID KWAKU Administration Multi-Ingredient Lotion 1 applic 11/07/16 11:55 Eucerin (Large Jar) - TP BID PRN DRY SKIN Multivitamins 5 ml 10/16/16 16:30 01/06/17 11:30 Thera-Plus - GT 5 ml DAILY KWAKU Administration Ranitidine HCl 150 mg 08/27/16 12:15 01/06/17 23:07 Zantac Oral Solution - PO 150 mg BID KWAKU Administration Scopolamine HBr 1 patch 12/10/16 11:00 01/06/17 11:31 Transderm-Scop - TD 1 patch Q72H KWAKU Administration Simethicone 40 mg 12/29/16 10:15 01/06/17 23:57 Mylicon Liquid - PO 40 mg BID KWAKU Administration ASSESSMENT/PLAN 75 year old male with PMH of HTN, IDDM, inguinal hernia who presented to the ED with diverticular bleed s/p right hemicolectomy. 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 Leukocytosis, resolved Pyuria, resolved --01/06 UA negative, UC pending --will hold off antibiotics until urine culture results Central sleep apnea --seen and evaluated by pulmonary, breathing pauses are due to central apneas secondary to anoxic brain injury; no observed evidence of GRANT --no desaturation --O2 as needed Anoxic brain injury s/p brainstem CVAs --mental status unchanged Respiratory failure secondary to anoxic brain injury, resolved --on room air, nasal cannula PRN --trach removed 09/09/16 --duonebs PRN Hydronephrosis, chronic --renal function stable Right inguinal hernia --incidental finding on CT --no surgical intervention Functional quadriplegia secondary to anoxic brain injury --inability to feed, turn, or toilet independently; requires complete care Hypertension --BP well-controlled --continue lisinopril, metoprolol, amlodipine Stage III pressure ulcers buttocks, healed IDDM --Levemir --Novolog sliding scale coverage --fingersticks F/E/N Fluids/Nutrition: Diet: TF Glucerna 1.5 @ 70 ml/hr with 65 ml/hr water flushes and Prostat SF 1x/day. Electrolytes: replete as indicated DVT prophylaxis --SCDs bilaterally --no chemical anticoagulation 2/2 spontaneous gluteal bleed and severe GI bleed Dispo: continues to require inpatient care. DNR. Visit type - Emergency Visit Emergency Visit: Yes ED Registration Date: 06/27/15 Care time: The patient presented to the Emergency Department on the above date and was hospitalized for further evaluation of their emergent condition. - New Patient This patient is new to me today: No - Critical Care Critical Care patient: No
[2017-01-07] MEDS: MULTIVITAMINS LIQUID THERAPEUTIC 118 ML BOT GT SCH (10:25)
[2017-01-07] MEDS: AMINO ACIDS/PROTEIN HYDROLYS SUGAR-FREE 30 ML PACKET PO SCH (10:25)
[2017-01-07] MEDS: LISINOPRIL 20 MG TABLET (FP) GT SCH (10:30)
[2017-01-07] MEDS: SIMETHICONE 40 MG/0.6 ML BOTTLE PO SCH ×2 (10:35→23:01)
[2017-01-07] MEDS: METOPROLOL TARTRATE 50 MG TABLET (FP) GT SCH ×2 (10:40→23:00)
[2017-01-07] MEDS: RANITIDINE HCL 150 MG/10 ML UNIT-DOSE CUP PO SCH ×2 (10:45→23:02)
[2017-01-07] MEDS: amLODIPine BESYLATE 10 MG TABLET (FP) GT SCH (10:55)
[2017-01-07] MEDS: INSULIN DETEMIR 100 UNITS/ML MDV SQ SCH (23:00)
[2017-01-08] MEDS: INSULIN SLIDING SCALE (NOVOLOG) 1 VIAL SQ SCH ×4 (06:26→22:33)
[2017-01-08] MEDS: METOPROLOL TARTRATE 50 MG TABLET (FP) GT SCH ×2 (10:43→22:30)
[2017-01-08] MEDS: RANITIDINE HCL 150 MG/10 ML UNIT-DOSE CUP PO SCH ×2 (10:44→22:29)
[2017-01-08] MEDS: LISINOPRIL 20 MG TABLET (FP) GT SCH (10:44)
[2017-01-08] MEDS: amLODIPine BESYLATE 10 MG TABLET (FP) GT SCH (10:44)
[2017-01-08] MEDS: MULTIVITAMINS LIQUID THERAPEUTIC 118 ML BOT GT SCH (10:45)
[2017-01-08] MEDS: AMINO ACIDS/PROTEIN HYDROLYS SUGAR-FREE 30 ML PACKET PO SCH (10:45)
[2017-01-08] MEDS: SIMETHICONE 40 MG/0.6 ML BOTTLE PO SCH ×2 (10:46→22:59)
--- NOTE | 2017-01-08 14:46 | PN ---
Physical Exam: SUBJECTIVE: Patient seen and examined. He appears at his baseline, in no acute distress. OBJECTIVE: Vital Signs Period Temp Pulse Resp BP Sys/Santiago Pulse Ox Last 24 Hr 98.1 F-98.6 F 61-80 18-20 112-145/69-80 99 GENERAL: Asleep, is awake, comfortable at rest, Tolerating feeds HEAD: Normal with no signs of trauma NECK: Trach removed, site is c/d/i, no redness or drainage noted. LUNGS: anterior lungs clear to auscultation HEART: Regular rate and rhythm, heart rate 80 - 90s ABDOMEN: peg tube LUQ - on continuous feeds Minimal abdominal distention, + bowel sounds, abdomen soft NEUROLOGICAL: at baseline, opens eyes intermittently SKIN: Healed stage 3 on sacrum Active Medications Generic Name Dose Route Start Last Admin Trade Name Freq PRN Reason Stop Dose Admin Acetaminophen 650 mg 05/26/16 14:23 01/04/17 21:13 Tylenol Oral Solution - GT 650 mg Q4H PRN Administration FEVER Amino Acids 30 ml 06/28/16 10:00 01/08/17 10:45 Prostat Sugar-Free Packet - PO 30 ml DAILY KWAKU Administration Amlodipine Besylate 10 mg 12/30/15 10:00 01/08/17 10:44 Norvasc - GT 10 mg DAILY KWAKU Administration Insulin Aspart 1 vial 09/17/16 16:30 01/08/17 12:04 Novolog Vial Sliding Scale - SQ 4 units ACHS KWAKU Administration Protocol Insulin Detemir 20 units 09/21/16 13:25 01/07/17 23:00 Levemir Vial SQ 20 units HS KWAKU Administration Lisinopril 40 mg 12/30/15 10:00 01/08/17 10:44 Prinivil GT 40 mg DAILY KWAKU Administration Metoprolol Tartrate 150 mg 11/28/16 10:00 01/08/17 10:43 Lopressor - GT 150 mg BID KWAKU Administration Multi-Ingredient Lotion 1 applic 11/07/16 11:55 Eucerin (Large Jar) - TP BID PRN DRY SKIN Multivitamins 5 ml 10/16/16 16:30 01/08/17 10:45 Thera-Plus - GT 5 ml DAILY KWAKU Administration Ranitidine HCl 150 mg 08/27/16 12:15 01/08/17 10:44 Zantac Oral Solution - PO 150 mg BID KWAKU Administration Scopolamine HBr 1 patch 12/10/16 11:00 01/06/17 11:31 Transderm-Scop - TD 1 patch Q72H KWAKU Administration Simethicone 40 mg 12/29/16 10:15 01/08/17 10:46 Mylicon Liquid - PO 40 mg BID KWAKU Administration ASSESSMENT/PLAN: Patient is a 76 year old male with a past medical history of IDDM, HTN and inguinal hernia. He presented to the emergency room on 06/27/2015 with a diverticular bleed s/p right hemicolectomy. His hospitalization was further complicated with a CVA with anoxic brain injury. He is s/p trach secondary to respiratory failure. He is currently tolerating room air, no pain behaviours on exam. ID: [id number] - resolved Assessment/Plan: Blood cultures, urine cultures negative Neurology: Anoxic brain injury s/p brainstem CVA - at baseline Functional quadriplegia secondary to anoxic brain injury Assessment/Plan: Requires total care, on continuous feeds He is unable to participate in any activities of daily living -requires 24 hour care Pulmonary: Respiratory failure secondary to anoxic brain injury - resolved Assessment/Plan: - Tolerating room air. Cardiology: Hypertension - chronic Assessment/Plan: Hypertension On Norvasc 10mg daily, Lisinopril and Lopressor 150mg BID Endocrine: Diabetes - chronic Assessment/Plan: Tight glycemic control, Capillary glucose ac/hs Integumentary: Stage III pressure ulcers buttocks - healed - high risk for skin breakdown, turn and pos q2/air mattress Assessment/Plan: Continue Prostat daily, low score on Eliseo scale F.E.N. NPO - all meds through GT Glucerna with water flushes via GT Prostat for treatment of pressure ulcers Functional quadraplegia Monitor for dehydration Simethicone added for mild abdominal bloating Prophylaxis: DVT: SCDs - both legs. No AC: contraindicated secondary to history of GI bleed GI Regimen: Ranitidine BID Bowel regimen: deferred - secondary to soft stools He is bed bound and a total care Code Status: Patient continues to require inpatient care. DNR. Visit type - Emergency Visit Emergency Visit: Yes ED Registration Date: 06/27/15 Care time: The patient presented to the Emergency Department on the above date and was hospitalized for further evaluation of their emergent condition. - New Patient This patient is new to me today: No - Critical Care Critical Care patient: No - Discharge Referral Referred to [facility] No
[2017-01-08] MEDS: INSULIN DETEMIR 100 UNITS/ML MDV SQ SCH (22:31)
[2017-01-09] MEDS: INSULIN SLIDING SCALE (NOVOLOG) 1 VIAL SQ SCH ×4 (06:34→21:57)
[2017-01-09] MEDS: METOPROLOL TARTRATE 50 MG TABLET (FP) GT SCH ×2 (09:56→21:56)
[2017-01-09] MEDS: amLODIPine BESYLATE 10 MG TABLET (FP) GT SCH (09:56)
[2017-01-09] MEDS: RANITIDINE HCL 150 MG/10 ML UNIT-DOSE CUP PO SCH ×2 (09:56→21:57)
[2017-01-09] MEDS: LISINOPRIL 20 MG TABLET (FP) GT SCH (09:56)
[2017-01-09] MEDS: SIMETHICONE 40 MG/0.6 ML BOTTLE PO SCH ×2 (09:56→22:09)
[2017-01-09] MEDS: MULTIVITAMINS LIQUID THERAPEUTIC 118 ML BOT GT SCH (09:57)
[2017-01-09] MEDS: AMINO ACIDS/PROTEIN HYDROLYS SUGAR-FREE 30 ML PACKET PO SCH (09:57)
--- NOTE | 2017-01-09 11:28 | PN ---
Physical Exam: SUBJECTIVE: Patient seen and examined. No acute changes. At his baseline. OBJECTIVE: Vital Signs Period Temp Pulse Resp BP Sys/Santiago Pulse Ox Last 24 Hr 98.4 F-98.9 F 63-80 19-20 125-147/80-88 96 GENERAL: Asleep, is awake, comfortable at rest, Tolerating feeds HEAD: Normal with no signs of trauma NECK: Trach removed, site is c/d/i, no redness or drainage noted. LUNGS: anterior lungs clear to auscultation HEART: Regular rate and rhythm, heart rate 80 - 90s ABDOMEN: peg tube LUQ - on continuous feeds Minimal abdominal distention, + bowel sounds, abdomen soft NEUROLOGICAL: at baseline, opens eyes intermittently SKIN: Healed stage 3 on sacrum Laboratory Results - last 24 hr 01/07/17 01/07/17 01/07/17 12:13 18:36 21:37 POC Glucometer 158 140 151 01/08/17 01/08/17 01/08/17 05:55 11:48 16:55 POC Glucometer 135 166 136 01/08/17 22:24 POC Glucometer 151 Active Medications Generic Name Dose Route Start Last Admin Trade Name Freq PRN Reason Stop Dose Admin Acetaminophen 650 mg 05/26/16 14:23 01/04/17 21:13 Tylenol Oral Solution - GT 650 mg Q4H PRN Administration FEVER Amino Acids 30 ml 06/28/16 10:00 01/09/17 09:57 Prostat Sugar-Free Packet - PO 30 ml DAILY KWAKU Administration Amlodipine Besylate 10 mg 12/30/15 10:00 01/09/17 09:56 Norvasc - GT 10 mg DAILY KWAKU Administration Insulin Aspart 1 vial 09/17/16 16:30 01/09/17 06:34 Novolog Vial Sliding Scale - SQ Not Given ACHS [facility] Protocol Insulin Detemir 20 units 09/21/16 13:25 01/08/17 22:31 Levemir Vial SQ 20 units HS KWAKU Administration Lisinopril 40 mg 12/30/15 10:00 01/09/17 09:56 Prinivil GT 40 mg DAILY KWAKU Administration Metoprolol Tartrate 150 mg 11/28/16 10:00 01/09/17 09:56 Lopressor - GT 150 mg BID KWAKU Administration Multi-Ingredient Lotion 1 applic 11/07/16 11:55 Eucerin (Large Jar) - TP BID PRN DRY SKIN Multivitamins 5 ml 10/16/16 16:30 01/09/17 09:57 Thera-Plus - GT 5 ml DAILY KWAKU Administration Ranitidine HCl 150 mg 08/27/16 12:15 01/09/17 09:56 Zantac Oral Solution - PO 150 mg BID KWAKU Administration Scopolamine HBr 1 patch 12/10/16 11:00 01/06/17 11:31 Transderm-Scop - TD 1 patch Q72H KWAKU Administration Simethicone 40 mg 12/29/16 10:15 01/09/17 09:56 Mylicon Liquid - PO 40 mg BID KWAKU Administration ASSESSMENT/PLAN: Patient is a 76 year old male with a past medical history of IDDM, HTN and inguinal hernia. He presented to the emergency room on 06/27/2015 with a diverticular bleed s/p right hemicolectomy. His hospitalization was further complicated with a CVA with anoxic brain injury. He is s/p trach secondary to respiratory failure. He is currently tolerating room air, no pain behaviours on exam. ID: Leukocytosi - resolved Assessment/Plan: Blood cultures, urine cultures negative Neurology: Anoxic brain injury s/p brainstem CVA - at baseline Functional quadriplegia secondary to anoxic brain injury Assessment/Plan: Requires total care, on continuous feeds He is unable to participate in any activities of daily living -requires 24 hour care Pulmonary: Respiratory failure secondary to anoxic brain injury - resolved Assessment/Plan: - Tolerating room air. Cardiology: Hypertension - chronic Assessment/Plan: Hypertension On Norvasc 10mg daily, Lisinopril and Lopressor 150mg BID Endocrine: Diabetes - chronic Assessment/Plan: Tight glycemic control, Capillary glucose ac/hs Integumentary: Stage III pressure ulcers buttocks - healed - high risk for skin breakdown, turn and pos q2/air mattress Assessment/Plan: Continue Prostat daily, low score on Eliseo scale F.E.N. NPO - all meds through GT Glucerna with water flushes via GT Prostat for treatment of pressure ulcers Functional quadraplegia Monitor for dehydration Simethicone added for mild abdominal bloating Prophylaxis: DVT: SCDs - both legs. No AC: contraindicated secondary to history of GI bleed GI Regimen: Ranitidine BID Bowel regimen: deferred - secondary to soft stools He is bed bound and a total care Code Status: Patient continues to require inpatient care. DNR. Visit type - Emergency Visit Emergency Visit: Yes ED Registration Date: 06/27/15 Care time: The patient presented to the Emergency Department on the above date and was hospitalized for further evaluation of their emergent condition. - New Patient This patient is new to me today: No - Critical Care Critical Care patient: No - Discharge Referral Referred to [facility] No
[2017-01-09] MEDS: SCOPOLAMINE HYDROBROMIDE 1 PATCH PATCH.TD72 TD SCH (11:51)
[2017-01-09] MEDS: INSULIN DETEMIR 100 UNITS/ML MDV SQ SCH (21:56)
[2017-01-10] MEDS: INSULIN SLIDING SCALE (NOVOLOG) 1 VIAL SQ SCH ×4 (06:26→22:23)
[2017-01-10] MEDS: METOPROLOL TARTRATE 50 MG TABLET (FP) GT SCH ×2 (11:52→22:22)
[2017-01-10] MEDS: SIMETHICONE 40 MG/0.6 ML BOTTLE PO SCH ×2 (11:53→22:22)
[2017-01-10] MEDS: LISINOPRIL 20 MG TABLET (FP) GT SCH (11:53)
[2017-01-10] MEDS: AMINO ACIDS/PROTEIN HYDROLYS SUGAR-FREE 30 ML PACKET PO SCH (11:54)
[2017-01-10] MEDS: RANITIDINE HCL 150 MG/10 ML UNIT-DOSE CUP PO SCH ×2 (11:55→22:23)
[2017-01-10] MEDS: amLODIPine BESYLATE 10 MG TABLET (FP) GT SCH (11:55)
--- NOTE | 2017-01-10 17:56 | PN ---
Physical Exam: SUBJECTIVE: Patient seen and examined. At his baseline, no acute events. OBJECTIVE: Vital Signs Period Temp Pulse Resp BP Sys/Santiago Pulse Ox Last 24 Hr 97.8 F-98.1 F 60-73 16-20 135-156/78-80 96-96 GENERAL: Asleep, is awake, comfortable at rest, Tolerating feeds HEAD: Normal with no signs of trauma NECK: Trach removed, site is c/d/i, no redness or drainage noted. LUNGS: anterior lungs clear to auscultation HEART: Regular rate and rhythm, heart rate 80 - 90s ABDOMEN: peg tube LUQ - on continuous feeds Minimal abdominal distention, + bowel sounds, abdomen soft NEUROLOGICAL: at baseline, opens eyes intermittently SKIN: Healed stage 3 on sacrum Laboratory Results - last 24 hr 01/09/17 01/10/17 01/10/17 21:51 05:57 11:53 POC Glucometer 133 132 165 01/10/17 17:26 POC Glucometer 133 Active Medications Generic Name Dose Route Start Last Admin Trade Name Freq PRN Reason Stop Dose Admin Acetaminophen 650 mg 05/26/16 14:23 01/04/17 21:13 Tylenol Oral Solution - GT 650 mg Q4H PRN Administration FEVER Amino Acids 30 ml 06/28/16 10:00 01/10/17 11:54 Prostat Sugar-Free Packet - PO 30 ml DAILY KWAKU Administration Amlodipine Besylate 10 mg 12/30/15 10:00 01/10/17 11:55 Norvasc - GT 10 mg DAILY KWAKU Administration Insulin Aspart 1 vial 09/17/16 16:30 01/10/17 17:37 Novolog Vial Sliding Scale - SQ Not Given ACHS [facility] Protocol Insulin Detemir 20 units 09/21/16 13:25 01/09/17 21:56 Levemir Vial SQ 20 units HS KWAKU Administration Lisinopril 40 mg 12/30/15 10:00 01/10/17 11:53 Prinivil GT 40 mg DAILY KWAKU Administration Metoprolol Tartrate 150 mg 11/28/16 10:00 01/10/17 11:52 Lopressor - GT 150 mg BID KWAKU Administration Multi-Ingredient Lotion 1 applic 11/07/16 11:55 Eucerin (Large Jar) - TP BID PRN DRY SKIN Multivitamins 5 ml 10/16/16 16:30 01/09/17 09:57 Thera-Plus - GT 5 ml DAILY KWAKU Administration Ranitidine HCl 150 mg 08/27/16 12:15 01/10/17 11:55 Zantac Oral Solution - PO 150 mg BID KWAKU Administration Scopolamine HBr 1 patch 12/10/16 11:00 01/09/17 11:51 Transderm-Scop - TD 1 patch Q72H KWAKU Administration Simethicone 40 mg 12/29/16 10:15 01/10/17 11:53 Mylicon Liquid - PO 40 mg BID KWAKU Administration ASSESSMENT/PLAN: Patient is a 76 year old male with a past medical history of IDDM, HTN and inguinal hernia. He presented to the emergency room on 06/27/2015 with a diverticular bleed s/p right hemicolectomy. His hospitalization was further complicated with a CVA with anoxic brain injury. He is s/p trach secondary to respiratory failure. He is currently tolerating room air, no pain behaviours on exam. ID: Leukocytosis Assessment/Plan: resolved Blood cultures/urine cultures negative to date Neurology: Anoxic brain injury s/p brainstem CVA - at baseline Functional quadriplegia secondary to anoxic brain injury Assessment/Plan: Requires total care, on continuous feeds He is unable to participate in any activities of daily living -requires 24 hour care Pulmonary: Respiratory failure secondary to anoxic brain injury - resolved Assessment/Plan: - Tolerating room air. Cardiology: Hypertension - chronic Assessment/Plan: Hypertension On Norvasc 10mg daily, Lisinopril and Lopressor 150mg BID Endocrine: Diabetes - chronic Assessment/Plan: Tight glycemic control, Capillary glucose ac/hs Integumentary: Stage III pressure ulcers buttocks - healed - high risk for skin breakdown, turn and pos q2/air mattress Assessment/Plan: Continue Prostat daily, low score on Eliseo scale F.E.N. NPO - all meds through GT Glucerna with water flushes via GT Prostat for treatment of pressure ulcers Functional quadraplegia Monitor for dehydration Simethicone added for mild abdominal bloating Prophylaxis: DVT: SCDs - both legs. No AC: contraindicated secondary to history of GI bleed GI Regimen: Ranitidine BID Bowel regimen: deferred - secondary to soft stools He is bed bound and a total care Code Status: Patient continues to require inpatient care. DNR. Visit type - Emergency Visit Emergency Visit: Yes ED Registration Date: 06/27/15 Care time: The patient presented to the Emergency Department on the above date and was hospitalized for further evaluation of their emergent condition. - New Patient This patient is new to me today: No - Critical Care Critical Care patient: No - Discharge Referral Referred to [facility] No
[2017-01-10] MEDS: MULTIVITAMINS LIQUID THERAPEUTIC 118 ML BOT GT SCH (18:48)
[2017-01-10] MEDS: INSULIN DETEMIR 100 UNITS/ML MDV SQ SCH (22:22)
[2017-01-11] MEDS: INSULIN SLIDING SCALE (NOVOLOG) 1 VIAL SQ SCH ×4 (07:02→21:57)
[2017-01-11] MEDS: METOPROLOL TARTRATE 50 MG TABLET (FP) GT SCH ×2 (11:47→21:55)
[2017-01-11] MEDS: amLODIPine BESYLATE 10 MG TABLET (FP) GT SCH (11:48)
[2017-01-11] MEDS: SIMETHICONE 40 MG/0.6 ML BOTTLE PO SCH ×2 (11:48→21:55)
[2017-01-11] MEDS: LISINOPRIL 20 MG TABLET (FP) GT SCH (11:48)
[2017-01-11] MEDS: RANITIDINE HCL 150 MG/10 ML UNIT-DOSE CUP PO SCH ×2 (11:51→21:55)
[2017-01-11] MEDS: AMINO ACIDS/PROTEIN HYDROLYS SUGAR-FREE 30 ML PACKET PO SCH (11:51)
--- NOTE | 2017-01-11 17:11 | PN ---
Physical Exam: SUBJECTIVE: Patient seen and examined. Appears at his baseline, in no acute distress. OBJECTIVE: GENERAL: Asleep, is awake, comfortable at rest, Tolerating feeds HEAD: Normal with no signs of trauma NECK: Trach removed, site is c/d/i, no redness or drainage noted. LUNGS: anterior lungs clear to auscultation HEART: Regular rate and rhythm, heart rate 80 - 90s ABDOMEN: peg tube LUQ - on continuous feeds Minimal abdominal distention, + bowel sounds, abdomen soft NEUROLOGICAL: at baseline, opens eyes intermittently SKIN: Healed stage 3 on sacrum Vital Signs Period Temp Pulse Resp BP Sys/Santiago Pulse Ox Last 24 Hr 97.9 F-98.6 F 68-88 20-20 129-143/74-83 Laboratory Results - last 24 hr 01/10/17 01/10/17 01/11/17 17:26 22:21 07:00 POC Glucometer 133 143 144 01/11/17 11:50 POC Glucometer 171 Active Medications Generic Name Dose Route Start Last Admin Trade Name Freq PRN Reason Stop Dose Admin Acetaminophen 650 mg 05/26/16 14:23 01/04/17 21:13 Tylenol Oral Solution - GT 650 mg Q4H PRN Administration FEVER Amino Acids 30 ml 06/28/16 10:00 01/11/17 11:51 Prostat Sugar-Free Packet - PO 30 ml DAILY KWAKU Administration Amlodipine Besylate 10 mg 12/30/15 10:00 01/11/17 11:48 Norvasc - GT 10 mg DAILY KWAKU Administration Insulin Aspart 1 vial 09/17/16 16:30 01/11/17 11:51 Novolog Vial Sliding Scale - SQ 4 units ACHS KWAKU Administration Protocol Insulin Detemir 20 units 09/21/16 13:25 01/10/17 22:22 Levemir Vial SQ 20 units HS KWAKU Administration Lisinopril 40 mg 12/30/15 10:00 01/11/17 11:48 Prinivil GT 40 mg DAILY KWAKU Administration Metoprolol Tartrate 150 mg 11/28/16 10:00 01/11/17 11:47 Lopressor - GT 150 mg BID KWAKU Administration Multi-Ingredient Lotion 1 applic 11/07/16 11:55 Eucerin (Large Jar) - TP BID PRN DRY SKIN Multivitamins 5 ml 10/16/16 16:30 01/10/17 18:48 Thera-Plus - GT 5 ml DAILY KWAKU Administration Ranitidine HCl 150 mg 08/27/16 12:15 01/11/17 11:51 Zantac Oral Solution - PO 150 mg BID KWAKU Administration Scopolamine HBr 1 patch 12/10/16 11:00 01/09/17 11:51 Transderm-Scop - TD 1 patch Q72H KWAKU Administration Simethicone 40 mg 12/29/16 10:15 01/11/17 11:48 Mylicon Liquid - PO 40 mg BID KWAKU Administration ASSESSMENT/PLAN: Patient is a 76 year old male with a past medical history of IDDM, HTN and inguinal hernia. He presented to the emergency room on 06/27/2015 with a diverticular bleed s/p right hemicolectomy. His hospitalization was further complicated with a CVA with anoxic brain injury. He is s/p trach secondary to respiratory failure. He is currently tolerating room air, no pain behaviours on exam. ID: Leukocytosis Assessment/Plan: resolved Blood cultures/urine cultures negative to date Neurology: Anoxic brain injury s/p brainstem CVA - at baseline Functional quadriplegia secondary to anoxic brain injury Assessment/Plan: Requires total care, on continuous feeds He is unable to participate in any activities of daily living -requires 24 hour care Pulmonary: Respiratory failure secondary to anoxic brain injury - resolved Assessment/Plan: - Tolerating room air. Cardiology: Hypertension - chronic Assessment/Plan: Hypertension On Norvasc 10mg daily, Lisinopril and Lopressor 150mg BID Endocrine: Diabetes - chronic Assessment/Plan: Tight glycemic control, Capillary glucose ac/hs Integumentary: Stage III pressure ulcers buttocks - healed - high risk for skin breakdown, turn and pos q2/air mattress Assessment/Plan: Continue Prostat daily, low score on Eliseo scale F.E.N. NPO - all meds through GT Glucerna with water flushes via GT Prostat for treatment of pressure ulcers Functional quadraplegia Monitor for dehydration Simethicone added for mild abdominal bloating Prophylaxis: DVT: SCDs - both legs. No AC: contraindicated secondary to history of GI bleed GI Regimen: Ranitidine BID Bowel regimen: deferred - secondary to soft stools He is bed bound and a total care Code Status: Patient continues to require inpatient care. DNR. Visit type - Emergency Visit Emergency Visit: Yes ED Registration Date: 06/27/15 Care time: The patient presented to the Emergency Department on the above date and was hospitalized for further evaluation of their emergent condition. - New Patient This patient is new to me today: No - Critical Care Critical Care patient: No - Discharge Referral Referred to [facility] No
[2017-01-11] MEDS: MULTIVITAMINS LIQUID THERAPEUTIC 118 ML BOT GT SCH (19:45)
[2017-01-11] MEDS: INSULIN DETEMIR 100 UNITS/ML MDV SQ SCH (21:56)
[2017-01-12] MEDS: INSULIN SLIDING SCALE (NOVOLOG) 1 VIAL SQ SCH ×4 (06:49→22:37)
[2017-01-12] MEDS: AMINO ACIDS/PROTEIN HYDROLYS SUGAR-FREE 30 ML PACKET PO SCH (10:45)
[2017-01-12] MEDS: amLODIPine BESYLATE 10 MG TABLET (FP) GT SCH (10:50)
[2017-01-12] MEDS: RANITIDINE HCL 150 MG/10 ML UNIT-DOSE CUP PO SCH ×2 (10:50→22:27)
[2017-01-12] MEDS: METOPROLOL TARTRATE 50 MG TABLET (FP) GT SCH ×2 (10:55→22:26)
[2017-01-12] MEDS: MULTIVITAMINS LIQUID THERAPEUTIC 118 ML BOT GT SCH (10:55)
[2017-01-12] MEDS: LISINOPRIL 20 MG TABLET (FP) GT SCH (12:26)
[2017-01-12] MEDS: SIMETHICONE 40 MG/0.6 ML BOTTLE PO SCH ×2 (12:29→22:26)
[2017-01-12] MEDS: SCOPOLAMINE HYDROBROMIDE 1 PATCH PATCH.TD72 TD SCH (12:31)
--- NOTE | 2017-01-12 16:55 | PN ---
Physical Exam: SUBJECTIVE: Patient seen and examined. Patient appears at his baseline. RN at bedside providing cares. Patient overall comfortable. OBJECTIVE: GENERAL: Asleep, is awake, comfortable at rest, Tolerating feeds HEAD: Normal with no signs of trauma NECK: Trach removed, site is c/d/i, no redness or drainage noted. LUNGS: anterior lungs clear to auscultation HEART: Regular rate and rhythm, heart rate 80 - 90s ABDOMEN: peg tube LUQ - on continuous feeds Minimal abdominal distention, + bowel sounds, abdomen soft NEUROLOGICAL: at baseline, opens eyes intermittently SKIN: Healed stage 3 on sacrum Vital Signs Period Temp Pulse Resp BP Sys/Santiago Pulse Ox Last 24 Hr 97 F-98.3 F 69-85 18-20 124-149/80-88 99-99 Laboratory Results - last 24 hr 01/11/17 01/11/17 01/12/17 17:51 21:53 06:47 POC Glucometer 149 140 147 01/12/17 12:41 POC Glucometer 165 Active Medications Generic Name Dose Route Start Last Admin Trade Name Freq PRN Reason Stop Dose Admin Acetaminophen 650 mg 05/26/16 14:23 01/04/17 21:13 Tylenol Oral Solution - GT 650 mg Q4H PRN Administration FEVER Amino Acids 30 ml 06/28/16 10:00 01/12/17 10:45 Prostat Sugar-Free Packet - PO 30 ml DAILY KWAKU Administration Amlodipine Besylate 10 mg 12/30/15 10:00 01/12/17 10:50 Norvasc - GT 10 mg DAILY KWAKU Administration Insulin Aspart 1 vial 09/17/16 16:30 01/12/17 16:45 Novolog Vial Sliding Scale - SQ Not Given ACHS [facility] Protocol Insulin Detemir 20 units 09/21/16 13:25 01/11/17 21:56 Levemir Vial SQ 20 units HS KWAKU Administration Lisinopril 40 mg 12/30/15 10:00 01/12/17 12:26 Prinivil GT 40 mg DAILY KWAKU Administration Metoprolol Tartrate 150 mg 11/28/16 10:00 01/12/17 10:55 Lopressor - GT 150 mg BID KWAKU Administration Multi-Ingredient Lotion 1 applic 11/07/16 11:55 Eucerin (Large Jar) - TP BID PRN DRY SKIN Multivitamins 5 ml 10/16/16 16:30 01/12/17 10:55 Thera-Plus - GT 5 ml DAILY KWAKU Administration Ranitidine HCl 150 mg 08/27/16 12:15 01/12/17 10:50 Zantac Oral Solution - PO 150 mg BID KWAKU Administration Scopolamine HBr 1 patch 12/10/16 11:00 01/12/17 12:31 Transderm-Scop - TD 1 patch Q72H KWAKU Administration Simethicone 40 mg 12/29/16 10:15 01/12/17 12:29 Mylicon Liquid - PO 40 mg BID KWAKU Administration ASSESSMENT/PLAN: Patient is a 76 year old male with a past medical history of IDDM, HTN and inguinal hernia. He presented to the emergency room on 06/27/2015 with a diverticular bleed s/p right hemicolectomy. His hospitalization was further complicated with a CVA with anoxic brain injury. He is s/p trach secondary to respiratory failure. He is currently tolerating room air, no pain behaviours on exam. Neurology: Anoxic brain injury s/p brainstem CVA - at baseline Functional quadriplegia secondary to anoxic brain injury Assessment/Plan: Requires total care, on continuous feeds He is unable to participate in any activities of daily living -requires 24 hour care Pulmonary: Respiratory failure secondary to anoxic brain injury - resolved Assessment/Plan: - Tolerating room air. Cardiology: Hypertension - chronic Assessment/Plan: Hypertension On Norvasc 10mg daily, Lisinopril and Lopressor 150mg BID Endocrine: Diabetes - chronic Assessment/Plan: Tight glycemic control, Capillary glucose ac/hs Integumentary: Stage III pressure ulcers buttocks - healed - high risk for skin breakdown, turn and pos q2/air mattress Assessment/Plan: Continue Prostat daily, low score on Eliseo scale F.E.N. NPO - all meds through GT Glucerna with water flushes via GT Prostat for treatment of pressure ulcers Functional quadraplegia Monitor for dehydration Simethicone added for mild abdominal bloating Prophylaxis: DVT: SCDs - both legs. No AC: contraindicated secondary to history of GI bleed GI Regimen: Ranitidine BID Bowel regimen: deferred - secondary to soft stools He is bed bound and a total care Code Status: Patient continues to require inpatient care. DNR. Visit type - Emergency Visit Emergency Visit: Yes ED Registration Date: 06/27/15 Care time: The patient presented to the Emergency Department on the above date and was hospitalized for further evaluation of their emergent condition. - New Patient This patient is new to me today: No - Critical Care Critical Care patient: No - Discharge Referral Referred to [facility] No
[2017-01-12] MEDS: INSULIN DETEMIR 100 UNITS/ML MDV SQ SCH (22:27)
[2017-01-13] MEDS: INSULIN SLIDING SCALE (NOVOLOG) 1 VIAL SQ SCH ×4 (07:04→22:19)
[2017-01-13] MEDS: LISINOPRIL 20 MG TABLET (FP) GT SCH (12:00)
[2017-01-13] MEDS: METOPROLOL TARTRATE 50 MG TABLET (FP) GT SCH ×2 (12:00→22:18)
[2017-01-13] MEDS: amLODIPine BESYLATE 10 MG TABLET (FP) GT SCH (12:00)
[2017-01-13] MEDS: AMINO ACIDS/PROTEIN HYDROLYS SUGAR-FREE 30 ML PACKET PO SCH (12:00)
[2017-01-13] MEDS: RANITIDINE HCL 150 MG/10 ML UNIT-DOSE CUP PO SCH ×2 (12:00→22:20)
[2017-01-13] MEDS: SIMETHICONE 40 MG/0.6 ML BOTTLE PO SCH ×2 (12:00→23:25)
[2017-01-13] MEDS: MULTIVITAMINS LIQUID THERAPEUTIC 118 ML BOT GT SCH (16:37)
--- NOTE | 2017-01-13 16:44 | PN ---
Physical Exam: SUBJECTIVE: Patient seen and examined. At his baseline, no overnight events. OBJECTIVE: Vital Signs Period Temp Pulse Resp BP Sys/Santiago Pulse Ox Last 24 Hr 97.9 F-98.5 F 65-84 18-18 141-147/80-90 99 GENERAL: Asleep, is awake, comfortable at rest, Tolerating feeds HEAD: Normal with no signs of trauma NECK: Trach removed, site is c/d/i, no redness or drainage noted. LUNGS: anterior lungs clear to auscultation HEART: Regular rate and rhythm, heart rate 80 - 90s ABDOMEN: peg tube LUQ - on continuous feeds Minimal abdominal distention, + bowel sounds, abdomen soft NEUROLOGICAL: at baseline, opens eyes intermittently SKIN: Healed stage 3 on sacrum Laboratory Results - last 24 hr 01/12/17 01/12/17 01/13/17 16:44 22:31 07:03 POC Glucometer 136 143 138 01/13/17 13:05 POC Glucometer 153 Active Medications Generic Name Dose Route Start Last Admin Trade Name Freq PRN Reason Stop Dose Admin Acetaminophen 650 mg 05/26/16 14:23 01/04/17 21:13 Tylenol Oral Solution - GT 650 mg Q4H PRN Administration FEVER Amino Acids 30 ml 06/28/16 10:00 01/13/17 12:00 Prostat Sugar-Free Packet - PO 30 ml DAILY KWAKU Administration Amlodipine Besylate 10 mg 12/30/15 10:00 01/13/17 12:00 Norvasc - GT 10 mg DAILY KWAKU Administration Insulin Aspart 1 vial 09/17/16 16:30 01/13/17 13:06 Novolog Vial Sliding Scale - SQ 4 units ACHS KWAKU Administration Protocol Insulin Detemir 20 units 09/21/16 13:25 01/12/17 22:27 Levemir Vial SQ 20 units HS KWAKU Administration Lisinopril 40 mg 12/30/15 10:00 01/13/17 12:00 Prinivil GT 40 mg DAILY KWAKU Administration Metoprolol Tartrate 150 mg 11/28/16 10:00 01/13/17 12:00 Lopressor - GT 150 mg BID KWAKU Administration Multi-Ingredient Lotion 1 applic 11/07/16 11:55 Eucerin (Large Jar) - TP BID PRN DRY SKIN Multivitamins 5 ml 10/16/16 16:30 01/13/17 16:37 Thera-Plus - GT Not Given DAILY KWAKU Ranitidine HCl 150 mg 08/27/16 12:15 01/13/17 12:00 Zantac Oral Solution - PO 150 mg BID KWAKU Administration Scopolamine HBr 1 patch 12/10/16 11:00 01/12/17 12:31 Transderm-Scop - TD 1 patch Q72H KWAKU Administration Simethicone 40 mg 12/29/16 10:15 01/13/17 12:00 Mylicon Liquid - PO 40 mg BID KWAKU Administration ASSESSMENT/PLAN: Patient is a 76 year old male with a past medical history of IDDM, HTN and inguinal hernia. He presented to the emergency room on 06/27/2015 with a diverticular bleed s/p right hemicolectomy. His hospitalization was further complicated with a CVA with anoxic brain injury. He is s/p trach secondary to respiratory failure. He is currently tolerating room air, no pain behaviours on exam. Neurology: Anoxic brain injury s/p brainstem CVA - at baseline Functional quadriplegia secondary to anoxic brain injury Assessment/Plan: Requires total care, on continuous feeds He is unable to participate in any activities of daily living -requires 24 hour care Pulmonary: Respiratory failure secondary to anoxic brain injury - resolved Assessment/Plan: - Tolerating room air. Cardiology: Hypertension - chronic Assessment/Plan: Hypertension On Norvasc 10mg daily, Lisinopril and Lopressor 150mg BID Endocrine: Diabetes - chronic Assessment/Plan: Tight glycemic control, Capillary glucose ac/hs Integumentary: Stage III pressure ulcers buttocks - healed - high risk for skin breakdown, turn and pos q2/air mattress Assessment/Plan: Continue Prostat daily, low score on Eliseo scale F.E.N. NPO - all meds through GT Glucerna with water flushes via GT Prostat for treatment of pressure ulcers Functional quadraplegia Monitor for dehydration Simethicone added for mild abdominal bloating Prophylaxis: DVT: SCDs - both legs. No AC: contraindicated secondary to history of GI bleed GI Regimen: Ranitidine BID Bowel regimen: deferred - secondary to soft stools He is bed bound and a total care Code Status: Patient continues to require inpatient care. DNR. Visit type - Emergency Visit Emergency Visit: Yes ED Registration Date: 06/27/15 Care time: The patient presented to the Emergency Department on the above date and was hospitalized for further evaluation of their emergent condition. - New Patient This patient is new to me today: No - Critical Care Critical Care patient: No - Discharge Referral Referred to [facility] No
[2017-01-13] MEDS: INSULIN DETEMIR 100 UNITS/ML MDV SQ SCH (22:19)
[2017-01-14] MEDS: INSULIN SLIDING SCALE (NOVOLOG) 1 VIAL SQ SCH ×4 (06:22→22:30)
[2017-01-14] MEDS: LISINOPRIL 20 MG TABLET (FP) GT SCH (12:29)
[2017-01-14] MEDS: METOPROLOL TARTRATE 50 MG TABLET (FP) GT SCH ×2 (12:29→22:22)
[2017-01-14] MEDS: amLODIPine BESYLATE 10 MG TABLET (FP) GT SCH (12:30)
[2017-01-14] MEDS: RANITIDINE HCL 150 MG/10 ML UNIT-DOSE CUP PO SCH ×2 (12:30→22:23)
[2017-01-14] MEDS: AMINO ACIDS/PROTEIN HYDROLYS SUGAR-FREE 30 ML PACKET PO SCH (12:31)
[2017-01-14] MEDS: SIMETHICONE 40 MG/0.6 ML BOTTLE PO SCH ×2 (12:31→22:23)
[2017-01-14] MEDS: MULTIVITAMINS LIQUID THERAPEUTIC 118 ML BOT GT SCH (12:31)
--- NOTE | 2017-01-14 15:17 | PN ---
Physical Exam: SUBJECTIVE: Patient seen and examined. Patient at baseline, appears comfortable at rest. No overnight events reported. Tolerating feeds OBJECTIVE: Vital Signs Period Temp Pulse Resp BP Sys/Santiago Pulse Ox Last 24 Hr 98.9 F-99.2 F 74-78 16-18 144-148/72-89 98 GENERAL: Asleep, is awake, comfortable at rest, Tolerating feeds HEAD: Normal with no signs of trauma NECK: Trach removed, site is c/d/i, no redness or drainage noted. LUNGS: anterior lungs clear to auscultation HEART: Regular rate and rhythm, heart rate 80 - 90s ABDOMEN: peg tube LUQ - on continuous feeds Minimal abdominal distention, + bowel sounds, abdomen soft NEUROLOGICAL: at baseline, opens eyes intermittently SKIN: Healed stage 3 on sacrum Laboratory Results - last 24 hr 01/13/17 01/13/17 01/14/17 18:08 21:24 05:39 POC Glucometer 111 129 160 01/14/17 12:37 POC Glucometer 155 Active Medications Generic Name Dose Route Start Last Admin Trade Name Freq PRN Reason Stop Dose Admin Acetaminophen 650 mg 05/26/16 14:23 01/04/17 21:13 Tylenol Oral Solution - GT 650 mg Q4H PRN Administration FEVER Amino Acids 30 ml 06/28/16 10:00 01/14/17 12:31 Prostat Sugar-Free Packet - PO 30 ml DAILY KWAKU Administration Amlodipine Besylate 10 mg 12/30/15 10:00 01/14/17 12:30 Norvasc - GT 10 mg DAILY KWAKU Administration Insulin Aspart 1 vial 09/17/16 16:30 01/14/17 12:31 Novolog Vial Sliding Scale - SQ 4 units ACHS KWAKU Administration Protocol Insulin Detemir 20 units 09/21/16 13:25 01/13/17 22:19 Levemir Vial SQ 20 units HS KWAKU Administration Lisinopril 40 mg 12/30/15 10:00 01/14/17 12:29 Prinivil GT 40 mg DAILY KWAKU Administration Metoprolol Tartrate 150 mg 11/28/16 10:00 01/14/17 12:29 Lopressor - GT 150 mg BID KWAKU Administration Multi-Ingredient Lotion 1 applic 11/07/16 11:55 Eucerin (Large Jar) - TP BID PRN DRY SKIN Multivitamins 5 ml 10/16/16 16:30 01/14/17 12:31 Thera-Plus - GT Not Given DAILY KWAKU Ranitidine HCl 150 mg 08/27/16 12:15 01/14/17 12:30 Zantac Oral Solution - PO 150 mg BID KWAKU Administration Scopolamine HBr 1 patch 12/10/16 11:00 01/12/17 12:31 Transderm-Scop - TD 1 patch Q72H KWAKU Administration Simethicone 40 mg 12/29/16 10:15 01/14/17 12:31 Mylicon Liquid - PO 40 mg BID KWAKU Administration ASSESSMENT/PLAN: Patient is a 76 year old male with a past medical history of IDDM, HTN and inguinal hernia. He presented to the emergency room on 06/27/2015 with a diverticular bleed s/p right hemicolectomy. His hospitalization was further complicated with a CVA with anoxic brain injury. He is s/p trach secondary to respiratory failure. He is currently tolerating room air, no pain behaviours on exam. Neurology: Anoxic brain injury s/p brainstem CVA - at baseline Functional quadriplegia secondary to anoxic brain injury Assessment/Plan: Requires total care, on continuous feeds He is unable to participate in any activities of daily living -requires 24 hour care Pulmonary: Respiratory failure secondary to anoxic brain injury - resolved Assessment/Plan: - Tolerating room air. Cardiology: Hypertension - chronic Assessment/Plan: Hypertension On Norvasc 10mg daily, Lisinopril and Lopressor 150mg BID Endocrine: Diabetes - chronic Assessment/Plan: Tight glycemic control, Capillary glucose ac/hs Integumentary: Stage III pressure ulcers buttocks - healed - high risk for skin breakdown, turn and pos q2/air mattress Assessment/Plan: Continue Prostat daily, low score on Eliseo scale F.E.N. NPO - all meds through GT Glucerna with water flushes via GT Prostat for treatment of pressure ulcers Functional quadraplegia Monitor for dehydration Simethicone added for mild abdominal bloating Prophylaxis: DVT: SCDs - both legs. No AC: contraindicated secondary to history of GI bleed GI Regimen: Ranitidine BID Bowel regimen: deferred - secondary to soft stools He is bed bound and a total care Code Status: Patient continues to require inpatient care. DNR. Visit type - Emergency Visit Emergency Visit: Yes ED Registration Date: 06/27/15 Care time: The patient presented to the Emergency Department on the above date and was hospitalized for further evaluation of their emergent condition. - New Patient This patient is new to me today: No - Critical Care Critical Care patient: No - Discharge Referral Referred to [facility] Med P.C.: No
[2017-01-14] MEDS: INSULIN DETEMIR 100 UNITS/ML MDV SQ SCH (22:22)
[2017-01-15] MEDS: INSULIN SLIDING SCALE (NOVOLOG) 1 VIAL SQ SCH ×4 (06:36→22:00)
[2017-01-15 08:24] LABS: BASOPHIL 0.6 % (0-2.0); EOSINOPHIL 4.1 % (0-4.5); MCH 29.5 pg (25.7-33.7); MCHC 33.7 g/dl (32.0-35.9); MEAN CELL VOLUME 87.5 fl (80-96); MEAN PLT VOLUME 9.8 fl (7.5-11.1); PLATELET COUNT 202 K/MM3 (134-434); WHITE BLOOD COUNT 7.8 K/mm3 (4.0-10.0)
[2017-01-15 09:10] LABS: ALBUMIN 3.4 g/dl (3.4-5.0); ALK PHOS 140 U/L (45-117); ANION GAP 9 (8-16); BILIRUBIN,TOTAL 0.4 mg/dL (0.2-1.0); CALCIUM 9.8 mg/dL (8.5-10.1); CO2 30 mmol/L (21-32); CREATININE 0.8 mg/dL (0.7-1.3); GLUCOSE,RANDOM 135 mg/dL (74-106); SGOT/AST 17 U/L (15-37); SGPT/ALT 32 U/L (12-78); TOT PROT 7.8 g/dl (6.4-8.2)
[2017-01-15] MEDS: RANITIDINE HCL 150 MG/10 ML UNIT-DOSE CUP PO SCH ×2 (11:32→22:00)
[2017-01-15] MEDS: LISINOPRIL 20 MG TABLET (FP) GT SCH (11:33)
[2017-01-15] MEDS: METOPROLOL TARTRATE 50 MG TABLET (FP) GT SCH ×2 (11:33→22:00)
[2017-01-15] MEDS: AMINO ACIDS/PROTEIN HYDROLYS SUGAR-FREE 30 ML PACKET PO SCH (11:33)
[2017-01-15] MEDS: amLODIPine BESYLATE 10 MG TABLET (FP) GT SCH (11:34)
[2017-01-15] MEDS: MULTIVITAMINS LIQUID THERAPEUTIC 118 ML BOT GT SCH (11:34)
[2017-01-15] MEDS: SIMETHICONE 40 MG/0.6 ML BOTTLE PO SCH ×2 (11:34→22:00)
--- NOTE | 2017-01-15 13:35 | PN ---
Physical Exam: SUBJECTIVE: Patient seen and examined. Nursing staff report no CIC. Pt nonverbal per baseline. OBJECTIVE: Vital Signs 3 Period Temp Pulse Resp BP Sys/Santiago Pulse Ox Last 24 Hr 97.8 F-98.4 F 69-81 16-20 144-156/82-87 97 GENERAL: The patient is awake, localized voice today, but no response. In no acute distress. HEAD: Normal with no signs of trauma. EYES: PERRL, extraocular movements intact, sclera anicteric, conjunctiva clear. No ptosis. ENT: Ears normal, nares patent, oropharynx clear without exudates, moist mucous membranes. tracheotomy scar noted. NECK: Trachea midline, full range of motion, supple. LUNGS: Breath sounds equal, clear to auscultation bilaterally, no wheezes, no crackles, no accessory muscle use. HEART: Regular rate and rhythm, S1, S2 without murmur, rub or gallop. ABDOMEN: Soft, nontender, nondistended, normoactive bowel sounds, no guarding, no rebound, no hepatosplenomegaly, no masses. GT in place EXTREMITIES: 2+ pulses, warm, well-perfused, no edema. NEUROLOGICAL: Cranial nerves II through XII grossly intact. Normal speech, gait not observed. PSYCH: Normal mood, normal affect. SKIN: Warm, dry, normal turgor, no rashes or lesions noted, stage 2 sacral wound covered with allevyn dressing. Laboratory Results - last 24 hr 3 01/14/17 01/14/17 01/15/17 18:11 22:29 06:30 WBC 7.8 RBC 4.15 Hgb 12.2 Hct 36.3 MCV 87.5 MCHC 33.7 RDW 15.0 Plt Count 202 MPV 9.8 Neutrophils % 54.0 Lymphocytes % 35.1 D Monocytes % 6.2 Eosinophils % 4.1 Basophils % 0.6 Sodium Potassium Chloride Carbon Dioxide Anion Gap BUN Creatinine Creat Clearance w eGFR POC Glucometer 180 154 Random Glucose Calcium Total Bilirubin AST ALT Alkaline Phosphatase Total Protein Albumin 3 01/15/17 01/15/17 06:30 06:36 WBC RBC Hgb Hct MCV MCHC RDW Plt Count MPV Neutrophils % Lymphocytes % Monocytes % Eosinophils % Basophils % Sodium 141 Potassium 3.9 Chloride 102 Carbon Dioxide 30 Anion Gap 9 BUN 26 H Creatinine 0.8 Creat Clearance w eGFR > 60 POC Glucometer 158 Random Glucose 135 H D Calcium 9.8 Total Bilirubin 0.4 D AST 17 ALT 32 D Alkaline Phosphatase 140 H D Total Protein 7.8 Albumin 3.4 Active Medications 3 Generic Name Dose Route Start Last Admin Trade Name Freq PRN Reason Stop Dose Admin Acetaminophen 650 mg 05/26/16 14:23 01/04/17 21:13 Tylenol Oral Solution - GT 650 mg Q4H PRN Administration FEVER Amino Acids 30 ml 06/28/16 10:00 01/15/17 11:33 Prostat Sugar-Free Packet - PO 30 ml DAILY KWAKU Administration Amlodipine Besylate 10 mg 12/30/15 10:00 01/15/17 11:34 Norvasc - GT 10 mg DAILY KWAKU Administration Insulin Aspart 1 vial 09/17/16 16:30 01/15/17 06:36 Novolog Vial Sliding Scale - SQ 4 units ACHS KWAKU Administration Protocol Insulin Detemir 20 units 09/21/16 13:25 01/14/17 22:22 Levemir Vial SQ 20 units HS KWAKU Administration Lisinopril 40 mg 12/30/15 10:00 01/15/17 11:33 Prinivil GT 40 mg DAILY KWAKU Administration Metoprolol Tartrate 150 mg 11/28/16 10:00 01/15/17 11:33 Lopressor - GT 150 mg BID KWAKU Administration Multi-Ingredient Lotion 1 applic 11/07/16 11:55 Eucerin (Large Jar) - TP BID PRN DRY SKIN Multivitamins 5 ml 10/16/16 16:30 01/15/17 11:34 Thera-Plus - GT 5 ml DAILY KWAKU Administration Ranitidine HCl 150 mg 08/27/16 12:15 01/15/17 11:32 Zantac Oral Solution - PO 150 mg BID KWAKU Administration Scopolamine HBr 1 patch 12/10/16 11:00 01/12/17 12:31 Transderm-Scop - TD 1 patch Q72H KWAKU Administration Simethicone 40 mg 12/29/16 10:15 01/15/17 11:34 Mylicon Liquid - PO 40 mg BID KWAKU Administration ASSESSMENT/PLAN: 75 year old male with PMH of HTN, IDDM, inguinal hernia who presented to the ED with diverticular bleed s/p right hemicolectomy. 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 Central sleep apnea --seen and evaluated by pulmonary, breathing pauses are due to central apneas secondary to anoxic brain injury; no observed evidence of GRANT --no desaturation --O2 as needed Anoxic brain injury s/p brainstem CVAs --mental status unchanged Respiratory failure secondary to anoxic brain injury, resolved --on room air, nasal cannula PRN, no distress noted --trach removed 09/09/16 --duonebs PRN Hydronephrosis, chronic --renal function stable Right inguinal hernia --incidental finding on CT --no surgical intervention Functional quadriplegia secondary to anoxic brain injury --inability to feed, turn, or toilet independently; requires complete care; increased risk for PU, aspiration PNA Hypertension --BP well-controlled --continue lisinopril, metoprolol, amlodipine Stage 2 pressure ulcers buttocks - cont allevyn IDDM --Levemir --Novolog sliding scale coverage --fingersticks F/E/N Fluids/Nutrition: Diet: TF Glucerna 1.5 @ 70 ml/hr with 65 ml/hr water flushes and Prostat SF 1x/day. Electrolytes: replete as indicated, WNL today DVT prophylaxis --SCDs bilaterally --no chemical anticoagulation 2/2 spontaneous gluteal bleed and severe GI bleed Dispo: continues to require inpatient care. DNR. Visit type - Emergency Visit Emergency Visit: Yes ED Registration Date: 06/27/15 Care time: The patient presented to the Emergency Department on the above date and was hospitalized for further evaluation of their emergent condition. - New Patient This patient is new to me today: No - Critical Care Critical Care patient: No - Discharge Referral Referred to [facility] Med P.C.: No
[2017-01-15] MEDS: SCOPOLAMINE HYDROBROMIDE 1 PATCH PATCH.TD72 TD SCH (17:11)
[2017-01-15] MEDS: INSULIN DETEMIR 100 UNITS/ML MDV SQ SCH (22:00)
[2017-01-16] MEDS: INSULIN SLIDING SCALE (NOVOLOG) 1 VIAL SQ SCH ×4 (08:37→22:53)
[2017-01-16] MEDS: METOPROLOL TARTRATE 50 MG TABLET (FP) GT SCH ×2 (11:27→22:53)
[2017-01-16] MEDS: MULTIVITAMINS LIQUID THERAPEUTIC 118 ML BOT GT SCH (11:28)
[2017-01-16] MEDS: amLODIPine BESYLATE 10 MG TABLET (FP) GT SCH (11:28)
[2017-01-16] MEDS: LISINOPRIL 20 MG TABLET (FP) GT SCH (11:28)
[2017-01-16] MEDS: RANITIDINE HCL 150 MG/10 ML UNIT-DOSE CUP PO SCH ×2 (11:29→22:54)
[2017-01-16] MEDS: SIMETHICONE 40 MG/0.6 ML BOTTLE PO SCH ×2 (11:30→22:53)
[2017-01-16] MEDS: AMINO ACIDS/PROTEIN HYDROLYS SUGAR-FREE 30 ML PACKET PO SCH (11:30)
[2017-01-16] MEDS: INSULIN DETEMIR 100 UNITS/ML MDV SQ SCH (22:53)
[2017-01-17] MEDS: INSULIN SLIDING SCALE (NOVOLOG) 1 VIAL SQ SCH ×3 (06:08→17:27)
[2017-01-17] MEDS: METOPROLOL TARTRATE 50 MG TABLET (FP) GT SCH ×2 (11:20→23:00)
[2017-01-17] MEDS: amLODIPine BESYLATE 10 MG TABLET (FP) GT SCH (11:20)
[2017-01-17] MEDS: LISINOPRIL 20 MG TABLET (FP) GT SCH (11:20)
[2017-01-17] MEDS: SIMETHICONE 40 MG/0.6 ML BOTTLE PO SCH ×2 (11:21→23:00)
[2017-01-17] MEDS: AMINO ACIDS/PROTEIN HYDROLYS SUGAR-FREE 30 ML PACKET PO SCH (11:22)
[2017-01-17] MEDS: MULTIVITAMINS LIQUID THERAPEUTIC 118 ML BOT GT SCH (11:22)
[2017-01-17] MEDS: RANITIDINE HCL 150 MG/10 ML UNIT-DOSE CUP PO SCH ×2 (11:23→23:00)
--- NOTE | 2017-01-17 16:22 | PN ---
Physical Exam: SUBJECTIVE: Patient seen and examined. No changes. OBJECTIVE: Vital Signs Period Temp Pulse Resp BP Sys/Santiago Pulse Ox Last 24 Hr 97.6 F-98.2 F 70-88 20-20 125-148/76-89 97-98 PE Neuro: awakens to voice Pulm: Clear anteriorly, trach hole open CV: s1 s2 rrr no mrg Abd: peg tube CDI, s nt nd +bs Ext: foot drop, no edema, warm Skin: sacral wound Laboratory Results - last 24 hr 01/16/17 01/16/17 01/17/17 17:44 22:51 05:54 POC Glucometer 125 163 161 01/17/17 11:47 POC Glucometer 148 Active Medications Generic Name Dose Route Start Last Admin Trade Name Freq PRN Reason Stop Dose Admin Acetaminophen 650 mg 05/26/16 14:23 01/04/17 21:13 Tylenol Oral Solution - GT 650 mg Q4H PRN Administration FEVER Amino Acids 30 ml 06/28/16 10:00 01/17/17 11:22 Prostat Sugar-Free Packet - PO 30 ml DAILY KWAKU Administration Amlodipine Besylate 10 mg 12/30/15 10:00 01/17/17 11:20 Norvasc - GT 10 mg DAILY KWAKU Administration Insulin Aspart 1 vial 09/17/16 16:30 01/17/17 11:53 Novolog Vial Sliding Scale - SQ Not Given ACHS [facility] Protocol Insulin Detemir 20 units 09/21/16 13:25 01/16/17 22:53 Levemir Vial SQ 20 units HS KWAKU Administration Lisinopril 40 mg 12/30/15 10:00 01/17/17 11:20 Prinivil GT 40 mg DAILY KWAKU Administration Metoprolol Tartrate 150 mg 11/28/16 10:00 01/17/17 11:20 Lopressor - GT 150 mg BID KWAKU Administration Multi-Ingredient Lotion 1 applic 11/07/16 11:55 Eucerin (Large Jar) - TP BID PRN DRY SKIN Multivitamins 5 ml 10/16/16 16:30 01/17/17 11:22 Thera-Plus - GT 5 ml DAILY KWAKU Administration Ranitidine HCl 150 mg 08/27/16 12:15 01/17/17 11:23 Zantac Oral Solution - PO 150 mg BID KWAKU Administration Scopolamine HBr 1 patch 12/10/16 11:00 01/15/17 17:11 Transderm-Scop - TD 1 patch Q72H KWAKU Administration Simethicone 40 mg 12/29/16 10:15 01/17/17 11:21 Mylicon Liquid - PO 40 mg BID KWAKU Administration Assessment: 76 year old male with PMHx of HTN, IDDM, inguinal hernia who presented to the ED with diverticular bleed s/p Right hemicolectomy with hospital course complicated 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 Plan: 1. Anoxic brain injury s/p brainstem CVAs - Mental status unchanged 2. Respiratory failure with spontaneous breathing pauses 2/2 anoxic brain injury - No therapy for pauses per pulm 3. HTN - HR controlled - Continue lopressor 150mg BID - Continue norvasc 10mg - Continue lisinopril 40mg daily 4. Multiple pressure ulcers - Daily wound care - Turn and position q2h 5. IDDM - Levemir at 20u sq qhs - ISS BGM ACHS 6. Nutrition - Continue 75 ml/hr Glucerna 1.5, 80 ml/hr water flushes - Prostat daily 7. Prophylaxis - SCDs bilaterally - No chemical AC 2/2 spontaneous gluteal bleed and severe GI bleed - Zantac BID 8. Functional quadriplegia - Full Care Visit type - Emergency Visit Emergency Visit: Yes ED Registration Date: 06/27/15 Care time: The patient presented to the Emergency Department on the above date and was hospitalized for further evaluation of their emergent condition. - New Patient This patient is new to me today: No - Critical Care Critical Care patient: No
[2017-01-18] MEDS: INSULIN DETEMIR 100 UNITS/ML MDV SQ SCH ×2 (00:30→22:12)
[2017-01-18] MEDS: INSULIN SLIDING SCALE (NOVOLOG) 1 VIAL SQ SCH ×5 (00:32→22:11)
[2017-01-18] MEDS: METOPROLOL TARTRATE 50 MG TABLET (FP) GT SCH ×2 (13:17→22:12)
[2017-01-18] MEDS: LISINOPRIL 20 MG TABLET (FP) GT SCH (13:17)
[2017-01-18] MEDS: MULTIVITAMINS LIQUID THERAPEUTIC 118 ML BOT GT SCH (13:18)
[2017-01-18] MEDS: amLODIPine BESYLATE 10 MG TABLET (FP) GT SCH (13:18)
[2017-01-18] MEDS: AMINO ACIDS/PROTEIN HYDROLYS SUGAR-FREE 30 ML PACKET PO SCH (13:18)
[2017-01-18] MEDS: SIMETHICONE 40 MG/0.6 ML BOTTLE PO SCH ×2 (13:18→22:12)
[2017-01-18] MEDS: SCOPOLAMINE HYDROBROMIDE 1 PATCH PATCH.TD72 TD SCH (13:19)
[2017-01-18] MEDS: RANITIDINE HCL 150 MG/10 ML UNIT-DOSE CUP PO SCH ×2 (13:19→22:12)
[2017-01-19] MEDS: INSULIN SLIDING SCALE (NOVOLOG) 1 VIAL SQ SCH ×4 (06:32→22:42)
[2017-01-19] MEDS: LISINOPRIL 20 MG TABLET (FP) GT SCH (12:01)
[2017-01-19] MEDS: METOPROLOL TARTRATE 50 MG TABLET (FP) GT SCH ×2 (12:02→22:40)
[2017-01-19] MEDS: AMINO ACIDS/PROTEIN HYDROLYS SUGAR-FREE 30 ML PACKET PO SCH (12:02)
[2017-01-19] MEDS: amLODIPine BESYLATE 10 MG TABLET (FP) GT SCH (12:02)
[2017-01-19] MEDS: MULTIVITAMINS LIQUID THERAPEUTIC 118 ML BOT GT SCH (12:03)
[2017-01-19] MEDS: RANITIDINE HCL 150 MG/10 ML UNIT-DOSE CUP PO SCH ×2 (12:03→22:40)
[2017-01-19] MEDS: SIMETHICONE 40 MG/0.6 ML BOTTLE PO SCH ×2 (12:03→22:40)
--- NOTE | 2017-01-19 13:02 | PN ---
[id number] Pulse Resp BP Sys/Santiago Pulse Ox Last 24 Hr 97.4 F-98.9 F 77-104 18-20 134-150/80-94 98 GENERAL: Eyes closed, opens to voice. EYES: PERRL, extraocular movements intact, sclera anicteric, conjunctiva clear. No ptosis. ENT: Ears normal, nares patent, oropharynx clear without exudates, moist mucous membranes. NECK: Trachea midline, full range of motion, supple. LUNGS: Breath sounds equal, clear to auscultation bilaterally, no wheezes, no crackles, no accessory muscle use. HEART: Regular rate and rhythm, S1, S2 without murmur, rub or gallop. ABDOMEN: Soft, nontender, nondistended, normoactive bowel sounds, no guarding, no rebound, no hepatosplenomegaly, no masses. EXTREMITIES: 2+ pulses, warm, well-perfused, no edema. NEUROLOGICAL: E 3 V 1 M 5 = 9. SKIN: Healing sacral pressure ulcer. Laboratory Results - last 24 hr 01/18/17 01/18/17 01/19/17 16:27 22:04 06:30 POC Glucometer 149 168 149 Active Medications Generic Name Dose Route Start Last Admin Trade Name Freq PRN Reason Stop Dose Admin Acetaminophen 650 mg 05/26/16 14:23 01/04/17 21:13 Tylenol Oral Solution - GT 650 mg Q4H PRN Administration FEVER Amino Acids 30 ml 06/28/16 10:00 01/19/17 12:02 Prostat Sugar-Free Packet - PO 30 ml DAILY KWAKU Administration Amlodipine Besylate 10 mg 12/30/15 10:00 01/19/17 12:02 Norvasc - GT 10 mg DAILY KWAKU Administration Insulin Aspart 1 vial 09/17/16 16:30 01/19/17 12:37 Novolog Vial Sliding Scale - SQ 4 units ACHS KWAKU Administration Protocol Insulin Detemir 20 units 09/21/16 13:25 01/18/17 22:12 Levemir Vial SQ 20 units HS KWAKU Administration Lisinopril 40 mg 12/30/15 10:00 01/19/17 12:01 Prinivil GT 40 mg DAILY KWAKU Administration Metoprolol Tartrate 150 mg 11/28/16 10:00 01/19/17 12:02 Lopressor - GT 150 mg BID KWAKU Administration Multi-Ingredient Lotion 1 applic 11/07/16 11:55 Eucerin (Large Jar) - TP BID PRN DRY SKIN Multivitamins 5 ml 10/16/16 16:30 01/19/17 12:03 Thera-Plus - GT 5 ml DAILY KWAKU Administration Ranitidine HCl 150 mg 08/27/16 12:15 01/19/17 12:03 Zantac Oral Solution - PO 150 mg BID KWAKU Administration Scopolamine HBr 1 patch 12/10/16 11:00 01/18/17 13:19 Transderm-Scop - TD 1 patch Q72H KWAKU Administration Simethicone 40 mg 12/29/16 10:15 01/19/17 12:03 Mylicon Liquid - PO 40 mg BID KWAKU Administration ASSESSMENT/PLAN: 76 year old male with PMHx of HTN, IDDM, inguinal hernia who presented to the ED with diverticular bleed s/p Right hemicolectomy with hospital course complicated 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 Plan: 1. Anoxic brain injury s/p brainstem CVAs - Mental status unchanged 2. Respiratory failure with spontaneous breathing pauses 2/2 anoxic brain injury - No therapy for pauses per pulm 3. HTN - HR controlled - Continue lopressor 150mg BID - Continue norvasc 10mg - Continue lisinopril 40mg daily 4. Multiple pressure ulcers - Daily wound care - Turn and position q2h 5. IDDM - Levemir at 20u sq qhs - ISS BGM ACHS 6. Nutrition - Continue 75 ml/hr Glucerna 1.5, 80 ml/hr water flushes - Prostat daily 7. Prophylaxis - SCDs bilaterally - No chemical AC 2/2 spontaneous gluteal bleed and severe GI bleed - Zantac BID 8. Functional quadriplegia - Full Care Visit type - Emergency Visit Emergency Visit: Yes ED Registration Date: 06/27/15 Care time: The patient presented to the Emergency Department on the above date and was hospitalized for further evaluation of their emergent condition. - New Patient This patient is new to me today: No - Critical Care Critical Care patient: No
[2017-01-19] MEDS: INSULIN DETEMIR 100 UNITS/ML MDV SQ SCH (22:43)
[2017-01-20] MEDS: INSULIN SLIDING SCALE (NOVOLOG) 1 VIAL SQ SCH ×4 (06:10→22:30)
--- NOTE | 2017-01-20 08:27 | PN ---
[id number] bedside, non-verbal. Tolerating room air well Current Medications Generic Name Dose Route Start Last Admin Trade Name Jaylanq PRN Reason Stop Dose Admin Acetaminophen 650 mg 05/26/16 14:23 01/04/17 21:13 Tylenol Oral Solution - GT 650 mg Q4H PRN Administration FEVER Amino Acids 30 ml 06/28/16 10:00 01/19/17 12:02 Prostat Sugar-Free Packet - PO 30 ml DAILY KWAKU Administration Amlodipine Besylate 10 mg 12/30/15 10:00 01/19/17 12:02 Norvasc - GT 10 mg DAILY KWAKU Administration Insulin Aspart 1 vial 09/17/16 16:30 01/20/17 06:10 Novolog Vial Sliding Scale - SQ 4 units ACHS KWAKU Administration Protocol Insulin Detemir 20 units 09/21/16 13:25 01/19/17 22:43 Levemir Vial SQ Not Given HS KWAKU Lisinopril 40 mg 12/30/15 10:00 01/19/17 12:01 Prinivil GT 40 mg DAILY KWAKU Administration Metoprolol Tartrate 150 mg 11/28/16 10:00 01/19/17 22:40 Lopressor - GT 150 mg BID KWAKU Administration Multi-Ingredient Lotion 1 applic 11/07/16 11:55 Eucerin (Large Jar) - TP BID PRN DRY SKIN Multivitamins 5 ml 10/16/16 16:30 01/19/17 12:03 Thera-Plus - GT 5 ml DAILY KWAKU Administration Ranitidine HCl 150 mg 08/27/16 12:15 01/19/17 22:40 Zantac Oral Solution - PO 150 mg BID KWAKU Administration Scopolamine HBr 1 patch 12/10/16 11:00 01/18/17 13:19 Transderm-Scop - TD 1 patch Q72H KWAKU Administration Simethicone 40 mg 12/29/16 10:15 01/19/17 22:40 Mylicon Liquid - PO 40 mg BID KWAKU Administration Objective: Vital Signs Period Temp Pulse Resp BP Sys/Santiago Pulse Ox Last 24 Hr 98.5 F-98.6 F 59-104 20-20 134-149/59-96 98-98 Physical Exam: General: No acute distress HEENT: Tracheal stoma Neuro: Opens eyes to verbal stimuli Pulm: CTA anteriorly CV: RRR, S1S2 Abd: Soft, non-distended. Normoactive bowel sounds. Peg tube c/d/i Ext: Warm, well-perfused. 2+ DP/PT bilaterally CBCD WBC 7.8 K/mm3 (4.0-10.0) 01/15/17 06:30 RBC 4.15 M/mm3 (4.00-5.60) 01/15/17 06:30 Hgb 12.2 GM/dL (11.7-16.9) 01/15/17 06:30 Hct 36.3 % (35.4-49) 01/15/17 06:30 MCV 87.5 fl (80-96) 01/15/17 06:30 MCHC 33.7 g/dl (32.0-35.9) 01/15/17 06:30 RDW 15.0 % (11.9-15.9) 01/15/17 06:30 Plt Count 202 K/MM3 (134-434) 01/15/17 06:30 MPV 9.8 fl (7.5-11.1) 01/15/17 06:30 CMP Sodium 141 mmol/L (136-145) 01/15/17 06:30 Potassium 3.9 mmol/L (3.5-5.1) 01/15/17 06:30 Chloride 102 mmol/L (98-107) 01/15/17 06:30 Carbon Dioxide 30 mmol/L (21-32) 01/15/17 06:30 Anion Gap 9 (8-16) 01/15/17 06:30 BUN 26 mg/dL (7-18) H 01/15/17 06:30 Creatinine 0.8 mg/dL (0.7-1.3) 01/15/17 06:30 Creat Clearance w eGFR > 60 (>60) 01/15/17 06:30 Random Glucose 135 mg/dL (74-106) H D 01/15/17 06:30 Calcium 9.8 mg/dL (8.5-10.1) 01/15/17 06:30 Total Bilirubin 0.4 mg/dL (0.2-1.0) D 01/15/17 06:30 AST 17 U/L (15-37) 01/15/17 06:30 ALT 32 U/L (12-78) D 01/15/17 06:30 Alkaline Phosphatase 140 U/L (45-117) H D 01/15/17 06:30 Total Protein 7.8 g/dl (6.4-8.2) 01/15/17 06:30 Albumin 3.4 g/dl (3.4-5.0) 01/15/17 06:30 CARDIAC ENZYMES Creatine Kinase 62 IU/L (38-174) 06/28/15 09:35 Troponin I 0.07 ng/ml (0.03-0.5) D 07/09/15 05:00 Assessment: 75 year old male with PMHx of HTN, IDDM, inguinal hernia who presented to the ED with diverticular bleed s/p Righ hemicolectomy with 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 Plan: 1. Anoxic brain injury s/p brainstem CVAs - Mental status unchanged 2. 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 Respiratory failure secondary to anoxic brain injury - Cont O2 via room air, NC prn - Trach removed 09/09/16 - Duonebs PRN 4. HTN - Continue lisinopril, amlodipine, lopressor 5. Multiple pressure ulcers - Turn and position q2h - Local wound care 6. IDDM - Continue Levemir at 20u sq qhs - ISS BGM ACHS 7. F/E/N: - 70 ml/hr Glucerna 1.5, 65 ml/hr water flushes - Prostat daily - Continue Zantac bid 8. Prophylaxis: - SCDs bilaterally - No chemical anticoagulation 2/2 spontaneous gluteal bleed and severe GI bleed - Functional quadriplegia CODE STATUS: DNR Visit type - Emergency Visit Emergency Visit: Yes ED Registration Date: 06/27/15 Care time: The patient presented to the Emergency Department on the above date and was hospitalized for further evaluation of their emergent condition. - New Patient This patient is new to me today: No - Critical Care Critical Care patient: No
[2017-01-20] MEDS: METOPROLOL TARTRATE 50 MG TABLET (FP) GT SCH ×2 (11:14→22:28)
[2017-01-20] MEDS: LISINOPRIL 20 MG TABLET (FP) GT SCH (11:15)
[2017-01-20] MEDS: amLODIPine BESYLATE 10 MG TABLET (FP) GT SCH (11:15)
[2017-01-20] MEDS: MULTIVITAMINS LIQUID THERAPEUTIC 118 ML BOT GT SCH (11:15)
[2017-01-20] MEDS: SIMETHICONE 40 MG/0.6 ML BOTTLE PO SCH ×2 (11:16→22:29)
[2017-01-20] MEDS: RANITIDINE HCL 150 MG/10 ML UNIT-DOSE CUP PO SCH ×2 (11:16→22:30)
[2017-01-20] MEDS: AMINO ACIDS/PROTEIN HYDROLYS SUGAR-FREE 30 ML PACKET PO SCH (11:24)
[2017-01-20] MEDS: INSULIN DETEMIR 100 UNITS/ML MDV SQ SCH (22:28)
[2017-01-21] MEDS: INSULIN SLIDING SCALE (NOVOLOG) 1 VIAL SQ SCH ×4 (06:40→21:49)
[2017-01-21] MEDS: LISINOPRIL 20 MG TABLET (FP) GT SCH (10:25)
[2017-01-21] MEDS: ACETAMINOPHEN 650 MG/20.3 ML ORAL SOLUTION (CUPS) GT PRN (10:26)
[2017-01-21] MEDS: RANITIDINE HCL 150 MG/10 ML UNIT-DOSE CUP PO SCH ×2 (10:26→21:46)
[2017-01-21] MEDS: SIMETHICONE 40 MG/0.6 ML BOTTLE PO SCH ×2 (10:26→21:47)
[2017-01-21] MEDS: METOPROLOL TARTRATE 50 MG TABLET (FP) GT SCH ×2 (10:26→21:47)
[2017-01-21] MEDS: amLODIPine BESYLATE 10 MG TABLET (FP) GT SCH (10:26)
[2017-01-21] MEDS: MULTIVIT-MINERALS 236 ML ML GT SCH (10:27)
[2017-01-21] MEDS: AMINO ACIDS/PROTEIN HYDROLYS SUGAR-FREE 30 ML PACKET PO SCH (10:29)
--- NOTE | 2017-01-21 11:39 | PN ---
Physical Exam: SUBJECTIVE: Patient seen and examined OBJECTIVE: Vital Signs Period Temp Pulse Resp BP Sys/Santiago Pulse Ox Last 24 Hr 98 F-98.3 F 72-80 20-20 139-147/77-91 98 GENERAL/NEURO: Eyes open. Non-verbal. Does not follow commands. Non-purposeful movement. HEAD: Normal with no signs of trauma. NECK: Tracheostomy site closed, well-healed. EYES: PERRL, extraocular movements intact, sclera anicteric, conjunctiva clear. No ptosis. ENT: Ears normal, nares patent, oropharynx clear without exudates, moist mucous membranes. LUNGS: CTA HEART: Regular rate and rhythm, S1, S2 without murmur, rub or gallop. ABDOMEN: Soft, nontender, nondistended, normoactive bowel sounds, no guarding, no rebound, no hepatosplenomegaly, no masses. PEG tube in situ, skin clean, dry , no sign of infection : Condom cath to [place] bag draining cloudy urine. EXTREMITIES: 2+ pulses, warm, well-perfused, no edema. Laboratory Results - last 24 hr 01/20/17 01/20/17 01/20/17 12:01 18:11 22:26 POC Glucometer 200 163 144 01/21/17 06:38 POC Glucometer 125 CBCD WBC 7.8 K/mm3 (4.0-10.0) 01/15/17 06:30 RBC 4.15 M/mm3 (4.00-5.60) 01/15/17 06:30 Hgb 12.2 GM/dL (11.7-16.9) 01/15/17 06:30 Hct 36.3 % (35.4-49) 01/15/17 06:30 MCV 87.5 fl (80-96) 01/15/17 06:30 MCHC 33.7 g/dl (32.0-35.9) 01/15/17 06:30 RDW 15.0 % (11.9-15.9) 01/15/17 06:30 Plt Count 202 K/MM3 (134-434) 01/15/17 06:30 MPV 9.8 fl (7.5-11.1) 01/15/17 06:30 CMP Sodium 141 mmol/L (136-145) 01/15/17 06:30 Potassium 3.9 mmol/L (3.5-5.1) 01/15/17 06:30 Chloride 102 mmol/L (98-107) 01/15/17 06:30 Carbon Dioxide 30 mmol/L (21-32) 01/15/17 06:30 Anion Gap 9 (8-16) 01/15/17 06:30 BUN 26 mg/dL (7-18) H 01/15/17 06:30 Creatinine 0.8 mg/dL (0.7-1.3) 01/15/17 06:30 Creat Clearance w eGFR > 60 (>60) 01/15/17 06:30 Calcium 9.8 mg/dL (8.5-10.1) 01/15/17 06:30 Total Bilirubin 0.4 mg/dL (0.2-1.0) D 01/15/17 06:30 AST 17 U/L (15-37) 01/15/17 06:30 ALT 32 U/L (12-78) D 01/15/17 06:30 Alkaline Phosphatase 140 U/L (45-117) H D 01/15/17 06:30 Total Protein 7.8 g/dl (6.4-8.2) 01/15/17 06:30 Albumin 3.4 g/dl (3.4-5.0) 01/15/17 06:30 Active Medications Generic Name Dose Route Start Last Admin Trade Name Freq PRN Reason Stop Dose Admin Acetaminophen 650 mg 05/26/16 14:23 01/21/17 10:26 Tylenol Oral Solution - GT 650 mg Q4H PRN Administration FEVER Amino Acids 30 ml 06/28/16 10:00 01/21/17 10:29 Prostat Sugar-Free Packet - PO 30 ml DAILY KWAKU Administration Amlodipine Besylate 10 mg 12/30/15 10:00 01/21/17 10:26 Norvasc - GT 10 mg DAILY KWAKU Administration Insulin Aspart 1 vial 09/17/16 16:30 01/21/17 06:40 Novolog Vial Sliding Scale - SQ Not Given ACHS [facility] Protocol Insulin Detemir 20 units 09/21/16 13:25 01/20/17 22:28 Levemir Vial SQ 20 units HS KWAKU Administration Lisinopril 40 mg 12/30/15 10:00 01/21/17 10:25 Prinivil GT 40 mg DAILY KWAKU Administration Metoprolol Tartrate 150 mg 11/28/16 10:00 01/21/17 10:26 Lopressor - GT 150 mg BID KWAKU Administration Multi-Ingredient Lotion 1 applic 11/07/16 11:55 Eucerin (Large Jar) - TP BID PRN DRY SKIN Ranitidine HCl 150 mg 08/27/16 12:15 01/21/17 10:26 Zantac Oral Solution - PO 150 mg BID KWAKU Administration Scopolamine HBr 1 patch 12/10/16 11:00 01/18/17 13:19 Transderm-Scop - TD 1 patch Q72H KWAKU Administration Simethicone 40 mg 12/29/16 10:15 01/21/17 10:26 Mylicon Liquid - PO 40 mg BID KWAKU Administration ASSESSMENT/PLAN 75 year old male with PMH of HTN, IDDM, inguinal hernia who presented to the ED with diverticular bleed s/p right hemicolectomy. 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 Central sleep apnea --seen and evaluated by pulmonary, breathing pauses are due to central apneas secondary to anoxic brain injury; no observed evidence of GRANT --no desaturation --O2 as needed Anoxic brain injury s/p brainstem CVAs --mental status unchanged Respiratory failure secondary to anoxic brain injury, resolved --on room air, nasal cannula PRN --trach removed 09/09/16 --duonebs PRN Hydronephrosis, chronic --renal function stable Right inguinal hernia --incidental finding on CT --no surgical intervention Functional quadriplegia secondary to anoxic brain injury --inability to feed, turn, or toilet independently; requires complete care Hypertension --BP well-controlled --continue lisinopril, metoprolol, amlodipine Stage III pressure ulcers buttocks, healed IDDM --Levemir --Novolog sliding scale coverage --fingersticks F/E/N Fluids/Nutrition: Diet: TF Glucerna 1.5 @ 70 ml/hr with 65 ml/hr water flushes and Prostat SF 1x/day. Electrolytes: replete as indicated DVT prophylaxis --SCDs bilaterally --no chemical anticoagulation 2/2 spontaneous gluteal bleed and severe GI bleed Dispo: continues to require inpatient care. DNR. Visit type - Emergency Visit Emergency Visit: Yes ED Registration Date: 06/27/15 Care time: The patient presented to the Emergency Department on the above date and was hospitalized for further evaluation of their emergent condition. - New Patient This patient is new to me today: No - Critical Care Critical Care patient: No
[2017-01-21] MEDS: SCOPOLAMINE HYDROBROMIDE 1 PATCH PATCH.TD72 TD SCH (14:37)
[2017-01-21] MEDS: INSULIN DETEMIR 100 UNITS/ML MDV SQ SCH (21:48)
[2017-01-22] MEDS: INSULIN SLIDING SCALE (NOVOLOG) 1 VIAL SQ SCH ×4 (06:15→23:10)
[2017-01-22 07:53] LABS: BASOPHIL 0.9 % (0-2.0); MCH 29.3 pg (25.7-33.7); MCHC 33.2 g/dl (32.0-35.9); MEAN CELL VOLUME 88.3 fl (80-96); MEAN PLT VOLUME 10.3 fl (7.5-11.1); NEUTROPHILS 54.6 % (42.8-82.8); PLATELET COUNT 129 K/MM3 (134-434); RDW 15.1 % (11.9-15.9); WHITE BLOOD COUNT 6.7 K/mm3 (4.0-10.0)
[2017-01-22 08:10] LABS: CALCIUM 9.5 mg/dL (8.5-10.1); CREATININE 0.8 mg/dL (0.7-1.3)
[2017-01-22] MEDS: METOPROLOL TARTRATE 50 MG TABLET (FP) GT SCH ×2 (11:09→23:08)
[2017-01-22] MEDS: SIMETHICONE 40 MG/0.6 ML BOTTLE PO SCH ×2 (11:09→23:07)
[2017-01-22] MEDS: MULTIVIT-MINERALS 236 ML ML GT SCH (11:09)
[2017-01-22] MEDS: RANITIDINE HCL 150 MG/10 ML UNIT-DOSE CUP PO SCH ×2 (11:10→23:07)
[2017-01-22] MEDS: LISINOPRIL 20 MG TABLET (FP) GT SCH (11:10)
[2017-01-22] MEDS: AMINO ACIDS/PROTEIN HYDROLYS SUGAR-FREE 30 ML PACKET PO SCH (11:10)
[2017-01-22] MEDS: amLODIPine BESYLATE 10 MG TABLET (FP) GT SCH (11:10)
--- NOTE | 2017-01-22 16:08 | PN ---
Physical Exam: SUBJECTIVE: Patient seen and examined. Appears at his baseline, comfortable at rest. OBJECTIVE: Platelets 129 Vital Signs Period Temp Pulse Resp BP Sys/Santiago Pulse Ox Last 24 Hr 97.9 F-98.5 F 56-82 18-20 135-147/79-93 98-98 GENERAL: Asleep, is awake, comfortable at rest, Tolerating feeds HEAD: Normal with no signs of trauma NECK: Trach removed, site is c/d/i, no redness or drainage noted. LUNGS: anterior lungs clear to auscultation HEART: Regular rate and rhythm, heart rate 80 - 90s ABDOMEN: peg tube LUQ - on continuous feeds Minimal abdominal distention, + bowel sounds, abdomen soft NEUROLOGICAL: at baseline, opens eyes intermittently SKIN: Healed stage 3 on sacrum Laboratory Results - last 24 hr 01/21/17 01/21/17 01/22/17 17:13 21:43 06:15 WBC 6.7 RBC 4.00 Hgb 11.7 Hct 35.3 L MCV 88.3 MCHC 33.2 RDW 15.1 Plt Count 129 L D MPV 10.3 Neutrophils % 54.6 Lymphocytes % 32.9 Monocytes % 5.6 Eosinophils % 6.0 H Basophils % 0.9 Sodium Potassium Chloride Carbon Dioxide Anion Gap BUN Creatinine POC Glucometer 146 140 Random Glucose Calcium 01/22/17 01/22/17 06:15 11:48 WBC RBC Hgb Hct MCV MCHC RDW Plt Count MPV Neutrophils % Lymphocytes % Monocytes % Eosinophils % Basophils % Sodium 145 Potassium 3.5 Chloride 106 Carbon Dioxide 28 Anion Gap 11 BUN 25 H Creatinine 0.8 POC Glucometer 155 Random Glucose 116 H Calcium 9.5 Active Medications Generic Name Dose Route Start Last Admin Trade Name Freq PRN Reason Stop Dose Admin Acetaminophen 650 mg 05/26/16 14:23 01/21/17 10:26 Tylenol Oral Solution - GT 650 mg Q4H PRN Administration FEVER Amino Acids 30 ml 06/28/16 10:00 01/22/17 11:10 Prostat Sugar-Free Packet - PO 30 ml DAILY KWAKU Administration Amlodipine Besylate 10 mg 12/30/15 10:00 01/22/17 11:10 Norvasc - GT 10 mg DAILY KWAKU Administration Insulin Aspart 1 vial 09/17/16 16:30 01/22/17 12:38 Novolog Vial Sliding Scale - SQ 4 units ACHS KWAKU Administration Protocol Insulin Detemir 20 units 09/21/16 13:25 01/21/17 21:48 Levemir Vial SQ 20 units HS KWAKU Administration Lisinopril 40 mg 12/30/15 10:00 01/22/17 11:10 Prinivil GT 40 mg DAILY KWAKU Administration Metoprolol Tartrate 150 mg 11/28/16 10:00 01/22/17 11:09 Lopressor - GT 150 mg BID KWAKU Administration Multi-Ingredient Lotion 1 applic 11/07/16 11:55 Eucerin (Large Jar) - TP BID PRN DRY SKIN Ranitidine HCl 150 mg 08/27/16 12:15 01/22/17 11:10 Zantac Oral Solution - PO 150 mg BID KWAKU Administration Scopolamine HBr 1 patch 12/10/16 11:00 01/21/17 14:37 Transderm-Scop - TD 1 patch Q72H KWAKU Administration Simethicone 40 mg 12/29/16 10:15 01/22/17 11:09 Mylicon Liquid - PO 40 mg BID KWAKU Administration ASSESSMENT/PLAN: Patient is a 76 year old male with a past medical history of IDDM, HTN and inguinal hernia. He presented to the emergency room on 06/27/2015 with a diverticular bleed s/p right hemicolectomy. His hospitalization was further complicated with a CVA with anoxic brain injury. He is s/p trach secondary to respiratory failure. He is currently tolerating room air, no pain behaviours on exam. Neurology: Anoxic brain injury s/p brainstem CVA - at baseline Functional quadriplegia secondary to anoxic brain injury Assessment/Plan: Requires total care, on continuous feeds He is unable to participate in any activities of daily living -requires 24 hour care Pulmonary: Respiratory failure secondary to anoxic brain injury - resolved Assessment/Plan: - Tolerating room air. Cardiology: Hypertension - chronic Assessment/Plan: Hypertension On Norvasc 10mg daily, Lisinopril and Lopressor 150mg BID Endocrine: Diabetes - chronic Assessment/Plan: Tight glycemic control, Capillary glucose ac/hs Integumentary: Stage III pressure ulcers buttocks - healed - high risk for skin breakdown, turn and pos q2/air mattress Assessment/Plan: Continue Prostat daily, low score on Eliseo scale Hematology: Thrombocytopenia @129 drop in platelets, trend reviewed Will repeat platelets in a.m. F.E.N. NPO - all meds through GT Glucerna with water flushes via GT Prostat for treatment of pressure ulcers Functional quadraplegia Monitor for dehydration Simethicone abdominal bloating Prophylaxis: DVT: SCDs - both legs. No AC: contraindicated secondary to history of GI bleed GI Regimen: Ranitidine BID Bowel regimen: deferred - secondary to soft stools He is bed bound and a total care Code Status: Patient continues to require inpatient care. DNR. Visit type - Emergency Visit Emergency Visit: Yes ED Registration Date: 06/27/15 Care time: The patient presented to the Emergency Department on the above date and was hospitalized for further evaluation of their emergent condition. - New Patient This patient is new to me today: No - Critical Care Critical Care patient: No - Discharge Referral Referred to [facility] Med P.C.: No
[2017-01-22] MEDS: INSULIN DETEMIR 100 UNITS/ML MDV SQ SCH (23:09)
[2017-01-23] MEDS: INSULIN SLIDING SCALE (NOVOLOG) 1 VIAL SQ SCH ×4 (06:07→22:54)
[2017-01-23 07:30] LABS: MCH 29.5 pg (25.7-33.7); MCHC 33.6 g/dl (32.0-35.9); MEAN CELL VOLUME 87.9 fl (80-96); MEAN PLT VOLUME 10.3 fl (7.5-11.1); PLATELET COUNT 129 K/MM3 (134-434); RDW 14.9 % (11.9-15.9); WHITE BLOOD COUNT 6.4 K/mm3 (4.0-10.0)
[2017-01-23] MEDS: AMINO ACIDS/PROTEIN HYDROLYS SUGAR-FREE 30 ML PACKET PO SCH (11:00)
[2017-01-23] MEDS: MULTIVIT-MINERALS 236 ML ML GT SCH (11:00)
[2017-01-23] MEDS: LISINOPRIL 20 MG TABLET (FP) GT SCH (11:00)
[2017-01-23] MEDS: METOPROLOL TARTRATE 50 MG TABLET (FP) GT SCH ×2 (11:00→22:53)
[2017-01-23] MEDS: SIMETHICONE 40 MG/0.6 ML BOTTLE PO SCH ×2 (11:00→22:53)
[2017-01-23] MEDS: amLODIPine BESYLATE 10 MG TABLET (FP) GT SCH (11:00)
[2017-01-23] MEDS: RANITIDINE HCL 150 MG/10 ML UNIT-DOSE CUP PO SCH ×2 (11:00→22:53)
--- NOTE | 2017-01-23 16:28 | PN ---
Physical Exam: SUBJECTIVE: Patient seen and examined. Comfortable at rest. Appears to be at his baseline. OBJECTIVE: Repeat platelet count 129, monitor for now. Vital Signs Period Temp Pulse Resp BP Sys/Santiago Pulse Ox Last 24 Hr 98.0 F-99.2 F 69-85 18-20 139-156/81-89 95-98 GENERAL: Asleep, is awake, comfortable at rest, Tolerating feeds HEAD: Normal with no signs of trauma NECK: Trach removed, site is c/d/i, no redness or drainage noted. LUNGS: anterior lungs clear to auscultation HEART: Regular rate and rhythm, heart rate 80 - 90s ABDOMEN: peg tube LUQ - on continuous feeds Minimal abdominal distention, + bowel sounds, abdomen soft NEUROLOGICAL: at baseline, opens eyes intermittently SKIN: Healed stage 3 on sacrum Laboratory Results - last 24 hr 01/22/17 01/22/17 01/22/17 06:14 17:36 23:06 WBC RBC Hgb Hct MCV MCHC RDW Plt Count MPV POC Glucometer 132 131 158 01/23/17 01/23/17 01/23/17 05:50 06:00 11:05 WBC 6.4 RBC 3.99 L Hgb 11.8 Hct 35.1 L MCV 87.9 MCHC 33.6 RDW 14.9 Plt Count 129 L MPV 10.3 POC Glucometer 131 147 Active Medications Generic Name Dose Route Start Last Admin Trade Name Freq PRN Reason Stop Dose Admin Acetaminophen 650 mg 05/26/16 14:23 01/21/17 10:26 Tylenol Oral Solution - GT 650 mg Q4H PRN Administration FEVER Amino Acids 30 ml 06/28/16 10:00 01/23/17 11:00 Prostat Sugar-Free Packet - PO 30 ml DAILY KWAKU Administration Amlodipine Besylate 10 mg 12/30/15 10:00 01/23/17 11:00 Norvasc - GT 10 mg DAILY KWAKU Administration Insulin Aspart 1 vial 09/17/16 16:30 01/23/17 11:07 Novolog Vial Sliding Scale - SQ Not Given ACHS [facility] Protocol Insulin Detemir 20 units 09/21/16 13:25 01/22/17 23:09 Levemir Vial SQ 20 units HS KWAKU Administration Lisinopril 40 mg 12/30/15 10:00 01/23/17 11:00 Prinivil GT 40 mg DAILY KWAKU Administration Metoprolol Tartrate 150 mg 11/28/16 10:00 01/23/17 11:00 Lopressor - GT 150 mg BID KWAKU Administration Multi-Ingredient Lotion 1 applic 11/07/16 11:55 Eucerin (Large Jar) - TP BID PRN DRY SKIN Ranitidine HCl 150 mg 08/27/16 12:15 01/23/17 11:00 Zantac Oral Solution - PO 150 mg BID KWAKU Administration Scopolamine HBr 1 patch 12/10/16 11:00 01/21/17 14:37 Transderm-Scop - TD 1 patch Q72H KWAKU Administration Simethicone 40 mg 12/29/16 10:15 01/23/17 11:00 Mylicon Liquid - PO 40 mg BID KWAKU Administration ASSESSMENT/PLAN: Patient is a 76 year old male with a past medical history of IDDM, HTN and inguinal hernia. He presented to the emergency room on 06/27/2015 with a diverticular bleed s/p right hemicolectomy. His hospitalization was further complicated with a CVA with anoxic brain injury. He is s/p trach secondary to respiratory failure. He is currently tolerating room air, no pain behaviours on exam. Neurology: Anoxic brain injury s/p brainstem CVA - at baseline Functional quadriplegia secondary to anoxic brain injury Assessment/Plan: Requires total care, on continuous feeds He is unable to participate in any activities of daily living -requires 24 hour care Pulmonary: Respiratory failure secondary to anoxic brain injury - resolved Assessment/Plan: - Tolerating room air. Cardiology: Hypertension - chronic Assessment/Plan: Hypertension On Norvasc 10mg daily, Lisinopril and Lopressor 150mg BID Endocrine: Diabetes - chronic Assessment/Plan: Tight glycemic control, Capillary glucose ac/hs Integumentary: Stage III pressure ulcers buttocks - healed - high risk for skin breakdown, turn and pos q2/air mattress Assessment/Plan: Continue Prostat daily, low score on Eliseo scale Hematology: Thrombocytopenia @129 on repeat cbc drop in platelets, trend reviewed Monitor for now F.E.N. NPO - all meds through GT Glucerna with water flushes via GT Prostat for treatment of pressure ulcers Functional quadraplegia Monitor for dehydration Simethicone abdominal bloating Prophylaxis: DVT: SCDs - both legs. No AC: contraindicated secondary to history of GI bleed GI Regimen: Ranitidine BID Bowel regimen: deferred - secondary to soft stools He is bed bound and a total care Code Status: Patient continues to require inpatient care. DNR. Visit type - Emergency Visit Emergency Visit: Yes ED Registration Date: 06/27/15 Care time: The patient presented to the Emergency Department on the above date and was hospitalized for further evaluation of their emergent condition. - New Patient This patient is new to me today: No - Critical Care Critical Care patient: No - Discharge Referral Referred to [facility] Med P.C.: No
[2017-01-23] MEDS: INSULIN DETEMIR 100 UNITS/ML MDV SQ SCH (22:53)
[2017-01-24] MEDS: INSULIN SLIDING SCALE (NOVOLOG) 1 VIAL SQ SCH ×4 (06:24→23:46)
[2017-01-24] MEDS: METOPROLOL TARTRATE 50 MG TABLET (FP) GT SCH ×2 (10:37→23:46)
[2017-01-24] MEDS: SIMETHICONE 40 MG/0.6 ML BOTTLE PO SCH ×2 (10:38→23:46)
[2017-01-24] MEDS: amLODIPine BESYLATE 10 MG TABLET (FP) GT SCH (10:39)
[2017-01-24] MEDS: LISINOPRIL 20 MG TABLET (FP) GT SCH (10:39)
[2017-01-24] MEDS: AMINO ACIDS/PROTEIN HYDROLYS SUGAR-FREE 30 ML PACKET PO SCH (10:40)
[2017-01-24] MEDS: SCOPOLAMINE HYDROBROMIDE 1 PATCH PATCH.TD72 TD SCH (10:40)
[2017-01-24] MEDS: MULTIVIT-MINERALS 236 ML ML GT SCH (10:40)
[2017-01-24] MEDS: RANITIDINE HCL 150 MG/10 ML UNIT-DOSE CUP PO SCH ×2 (10:40→23:46)
--- NOTE | 2017-01-24 20:30 | PN ---
Physical Exam: SUBJECTIVE: Patient seen and examined OBJECTIVE: Vital Signs Period Temp Pulse Resp BP Sys/Santiago Pulse Ox Last 24 Hr 97.5 F-98.4 F 53-81 18-20 128-149/72-80 94-95 GENERAL/NEURO: Eyes open. Non-verbal. Does not follow commands. Non-purposeful movement. HEAD: Normal with no signs of trauma. NECK: Tracheostomy site closed, well-healed. EYES: PERRL, extraocular movements intact, sclera anicteric, conjunctiva clear. No ptosis. ENT: Ears normal, nares patent, oropharynx clear without exudates, moist mucous membranes. LUNGS: CTA HEART: Regular rate and rhythm, S1, S2 without murmur, rub or gallop. ABDOMEN: Soft, nontender, nondistended, normoactive bowel sounds, no guarding, no rebound, no hepatosplenomegaly, no masses. PEG tube in situ, skin clean, dry , no sign of infection : Condom cath to [place]ell[place] bag draining cloudy urine. EXTREMITIES: 2+ pulses, warm, well-perfused, no edema. Laboratory Results - last 24 hr 01/23/17 01/24/17 01/24/17 22:49 06:23 11:06 POC Glucometer 149 137 152 01/24/17 17:33 POC Glucometer 171 CBCD WBC 6.4 K/mm3 (4.0-10.0) 01/23/17 06:00 RBC 3.99 M/mm3 (4.00-5.60) L 01/23/17 06:00 Hgb 11.8 GM/dL (11.7-16.9) 01/23/17 06:00 Hct 35.1 % (35.4-49) L 01/23/17 06:00 MCV 87.9 fl (80-96) 01/23/17 06:00 MCHC 33.6 g/dl (32.0-35.9) 01/23/17 06:00 RDW 14.9 % (11.9-15.9) 01/23/17 06:00 Plt Count 129 K/MM3 (134-434) L 01/23/17 06:00 MPV 10.3 fl (7.5-11.1) 01/23/17 06:00 CMP Sodium 145 mmol/L (136-145) 01/22/17 06:15 Potassium 3.5 mmol/L (3.5-5.1) 01/22/17 06:15 Chloride 106 mmol/L (98-107) 01/22/17 06:15 Carbon Dioxide 28 mmol/L (21-32) 01/22/17 06:15 Anion Gap 11 (8-16) 01/22/17 06:15 BUN 25 mg/dL (7-18) H 01/22/17 06:15 Creatinine 0.8 mg/dL (0.7-1.3) 01/22/17 06:15 Creat Clearance w eGFR > 60 (>60) 01/15/17 06:30 Calcium 9.5 mg/dL (8.5-10.1) 01/22/17 06:15 Total Bilirubin 0.4 mg/dL (0.2-1.0) D 01/15/17 06:30 AST 17 U/L (15-37) 01/15/17 06:30 ALT 32 U/L (12-78) D 01/15/17 06:30 Alkaline Phosphatase 140 U/L (45-117) H D 01/15/17 06:30 Total Protein 7.8 g/dl (6.4-8.2) 01/15/17 06:30 Albumin 3.4 g/dl (3.4-5.0) 01/15/17 06:30 Active Medications Generic Name Dose Route Start Last Admin Trade Name Freq PRN Reason Stop Dose Admin Acetaminophen 650 mg 05/26/16 14:23 01/21/17 10:26 Tylenol Oral Solution - GT 650 mg Q4H PRN Administration FEVER Amino Acids 30 ml 06/28/16 10:00 01/24/17 10:40 Prostat Sugar-Free Packet - PO 30 ml DAILY KWAKU Administration Amlodipine Besylate 10 mg 12/30/15 10:00 01/24/17 10:39 Norvasc - GT 10 mg DAILY KWAKU Administration Insulin Aspart 1 vial 09/17/16 16:30 01/24/17 17:37 Novolog Vial Sliding Scale - SQ 4 units ACHS KWAKU Administration Protocol Insulin Detemir 20 units 09/21/16 13:25 01/23/17 22:53 Levemir Vial SQ 20 units HS KWAKU Administration Lisinopril 40 mg 12/30/15 10:00 01/24/17 10:39 Prinivil GT 40 mg DAILY KWAKU Administration Metoprolol Tartrate 150 mg 11/28/16 10:00 01/24/17 10:37 Lopressor - GT 150 mg BID KWAKU Administration Multi-Ingredient Lotion 1 applic 11/07/16 11:55 Eucerin (Large Jar) - TP BID PRN DRY SKIN Ranitidine HCl 150 mg 08/27/16 12:15 01/24/17 10:40 Zantac Oral Solution - PO 150 mg BID KWAKU Administration Scopolamine HBr 1 patch 12/10/16 11:00 01/24/17 10:40 Transderm-Scop - TD 1 patch Q72H KWAKU Administration Simethicone 40 mg 12/29/16 10:15 01/24/17 10:38 Mylicon Liquid - PO 40 mg BID KWAKU Administration ASSESSMENT/PLAN 75 year old male with PMH of HTN, IDDM, inguinal hernia who presented to the ED with diverticular bleed s/p right hemicolectomy. 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 Central sleep apnea --seen and evaluated by pulmonary, breathing pauses are due to central apneas secondary to anoxic brain injury; no observed evidence of GRANT --no desaturation --O2 as needed Anoxic brain injury s/p brainstem CVAs --mental status unchanged Respiratory failure secondary to anoxic brain injury, resolved --on room air, nasal cannula PRN --trach removed 09/09/16 --duonebs PRN Hydronephrosis, chronic --renal function stable Right inguinal hernia --incidental finding on CT --no surgical intervention Functional quadriplegia secondary to anoxic brain injury --inability to feed, turn, or toilet independently; requires complete care Hypertension --BP well-controlled --continue lisinopril, metoprolol, amlodipine Stage III pressure ulcers buttocks, healed IDDM --Levemir --Novolog sliding scale coverage --fingersticks F/E/N Fluids/Nutrition: Diet: TF Glucerna 1.5 @ 70 ml/hr with 65 ml/hr water flushes and Prostat SF 1x/day. Electrolytes: replete as indicated DVT prophylaxis --SCDs bilaterally --no chemical anticoagulation 2/2 spontaneous gluteal bleed and severe GI bleed Dispo: continues to require inpatient care. DNR. Visit type - Emergency Visit Emergency Visit: Yes ED Registration Date: 06/27/15 Care time: The patient presented to the Emergency Department on the above date and was hospitalized for further evaluation of their emergent condition. - New Patient This patient is new to me today: No - Critical Care Critical Care patient: No
[2017-01-24] MEDS: INSULIN DETEMIR 100 UNITS/ML MDV SQ SCH (23:46)
[2017-01-25 06:34] LABS: MCHC 34.3 g/dl (32.0-35.9); MEAN CELL VOLUME 87.2 fl (80-96); MEAN PLT VOLUME 10.6 fl (7.5-11.1); PLATELET COUNT 138 K/MM3 (134-434); RDW 15.2 % (11.9-15.9)
[2017-01-25] MEDS: INSULIN SLIDING SCALE (NOVOLOG) 1 VIAL SQ SCH ×4 (06:35→22:35)
[2017-01-25 06:48] LABS: INR 1.3 (0.82-1.09); PROTHROMBIN TIME (PATIENT) 14.4 SEC (9.98-11.88)
--- NOTE | 2017-01-25 06:49 | HOSP ---
Subjective - Review of Symptoms Events since last encounter: Called by nurse who reported active GI bleed. Immediately went to see pt. Pt is alert, tracks with eyes, shakes head, but not appropriately in response to questions. withdraws to pain. Subjective: Pt laying in bed, large loose bloody BM noted. bloody BM extended out of diaper to level of his knees Physical Examination Vital Signs: Vital Signs Temperature 98.6 F 01/25/17 01:59 Pulse Rate 66 01/25/17 01:59 Respiratory Rate 20 01/25/17 01:59 Blood Pressure 151/77 01/25/17 01:59 O2 Sat by Pulse Oximetry (%) 96 01/24/17 23:00 Constitutional: Yes: Well Nourished Cardiovascular: Yes: Regular Rate and Rhythm, S1, S2 Respiratory: Yes: Regular, CTA Bilaterally Gastrointestinal: Yes: Normal Bowel Sounds, Soft. No: Tenderness ...Rectal Exam: Yes: Other (greyson dark bloody bm present) Labs: CBC, BMP 01/23/17 06:00 01/22/17 06:15 Hospitalist Encounter Assessment: GI bleed, h/o diverticular bleed with hemicolectomy - transfuse 1u PRBC - stat labs - NS 500cc bolus, then 100cc/hr - GI consult - CT abd/pel - protonix drip
[2017-01-25 07:05] LABS: ALBUMIN 3.3 g/dl (3.4-5.0); ANION GAP 12 (8-16); BILIRUBIN,TOTAL 0.4 mg/dL (0.2-1.0); CALCIUM 9.2 mg/dL (8.5-10.1); CO2 28 mmol/L (21-32); CREATININE 0.8 mg/dL (0.7-1.3); GLUCOSE,RANDOM 157 mg/dL (74-106); SGOT/AST 18 U/L (15-37); SGPT/ALT 39 U/L (12-78); TOT PROT 7.4 g/dl (6.4-8.2)
[2017-01-25 07:06] LABS: ALK PHOS 128 U/L (45-117)
[2017-01-25] MEDS: PANTOPRAZOLE SODIUM 80 MG in SODIUM CHLORIDE 100 ML IVPB SCH ×2 (07:51→17:58)
[2017-01-25] MEDS: SODIUM CHLORIDE 1,000 ML IV SCH ×2 (09:24→18:00)
[2017-01-25 10:06] LABS: BASOPHIL 0.7 % (0-2.0); EOSINOPHIL 3.8 % (0-4.5); MCH 29.2 pg (25.7-33.7); MCHC 33.2 g/dl (32.0-35.9); NEUTROPHILS 59.1 % (42.8-82.8); PLATELET COUNT 100 K/MM3 (134-434); RDW 15.6 % (11.9-15.9); WHITE BLOOD COUNT 6.2 K/mm3 (4.0-10.0)
[2017-01-25] MEDS: SIMETHICONE 40 MG/0.6 ML BOTTLE PO SCH ×2 (11:26→22:35)
[2017-01-25] MEDS: MULTIVIT-MINERALS 236 ML ML GT SCH (11:26)
[2017-01-25] MEDS: amLODIPine BESYLATE 10 MG TABLET (FP) GT SCH (11:26)
[2017-01-25] MEDS: METOPROLOL TARTRATE 50 MG TABLET (FP) GT SCH ×2 (11:26→22:35)
[2017-01-25] MEDS: AMINO ACIDS/PROTEIN HYDROLYS SUGAR-FREE 30 ML PACKET PO SCH (11:27)
[2017-01-25] MEDS: LISINOPRIL 20 MG TABLET (FP) GT SCH (11:27)
[2017-01-25 15:58] LABS: MCH 29.5 pg (25.7-33.7); MCHC 33.7 g/dl (32.0-35.9); MEAN CELL VOLUME 87.3 fl (80-96); MEAN PLT VOLUME 10.9 fl (7.5-11.1); NEUTROPHILS 66.2 % (42.8-82.8); PLATELET COUNT 117 K/MM3 (134-434); RDW 15.1 % (11.9-15.9); WHITE BLOOD COUNT 11.4 K/mm3 (4.0-10.0)
--- NOTE | 2017-01-25 16:14 | PN ---
Physical Exam: SUBJECTIVE: Patient seen and examined. Daughter Ani at bedside. OBJECTIVE: Vital Signs Period Temp Pulse Resp BP Sys/Santiago Pulse Ox Last 24 Hr 97.3 F-98.6 F 63-94 18-20 128-151/64-95 96 GENERAL/NEURO: Eyes open. Non-verbal. Does not follow commands. Non-purposeful movement. HEAD: Normal with no signs of trauma. NECK: Tracheostomy site closed, well-healed. EYES: PERRL, extraocular movements intact, sclera anicteric, conjunctiva clear. No ptosis. ENT: Ears normal, nares patent, oropharynx clear without exudates, moist mucous membranes. LUNGS: CTA HEART: Regular rate and rhythm, S1, S2 without murmur, rub or gallop. ABDOMEN: Soft, nontender, nondistended, normoactive bowel sounds, no guarding, no rebound, no hepatosplenomegaly, no masses. PEG tube in situ, skin clean, dry , no sign of infection : Condom cath to castellano bag draining cloudy urine. EXTREMITIES: 2+ pulses, warm, well-perfused, no edema. Laboratory Results - last 24 hr 01/24/17 01/24/17 01/25/17 17:33 23:44 06:00 WBC RBC Hgb Hct MCV MCHC RDW Plt Count MPV Neutrophils % Lymphocytes % Monocytes % Eosinophils % Basophils % INR Sodium Potassium Chloride Carbon Dioxide Anion Gap BUN Creatinine Creat Clearance w eGFR POC Glucometer 171 105 Random Glucose Calcium Total Bilirubin AST ALT Alkaline Phosphatase Total Protein Albumin Stool Occult Blood Blood Type O POSITIVE Antibody Screen Negative Crossmatch See Detail 01/25/17 01/25/17 01/25/17 06:01 06:01 06:01 WBC 8.0 RBC 3.66 L Hgb 11.0 L Hct 32.0 L MCV 87.2 MCHC 34.3 RDW 15.2 Plt Count 138 MPV 10.6 Neutrophils % Lymphocytes % Monocytes % Eosinophils % Basophils % INR Sodium 143 Potassium 3.8 Chloride 103 Carbon Dioxide 28 Anion Gap 12 BUN 23 H Creatinine 0.8 Creat Clearance w eGFR > 60 POC Glucometer Random Glucose 157 H D Calcium 9.2 Total Bilirubin 0.4 AST 18 ALT 39 D Alkaline Phosphatase 128 H Total Protein 7.4 Albumin 3.3 L Stool Occult Blood Positive Blood Type Antibody Screen Crossmatch 01/25/17 01/25/1701/25/17 06:01 06:02 06:26 WBC RBC Hgb Hct MCV MCHC RDW Plt Count MPV Neutrophils % Lymphocytes % Monocytes % Eosinophils % Basophils % INR 1.30 H Sodium Cancelled Potassium Cancelled Chloride Cancelled Carbon Dioxide Cancelled Anion Gap Cancelled BUN Cancelled Creatinine Cancelled Creat Clearance w eGFR POC Glucometer 167 Random Glucose Cancelled Calcium Cancelled Total Bilirubin AST ALT Alkaline Phosphatase Total Protein Albumin Stool Occult Blood Blood Type Antibody Screen Crossmatch 01/25/17 01/25/17 01/25/17 09:30 11:29 15:30 WBC 6.2 11.4 H D RBC 3.29 L 3.70 L Hgb 9.6 L D 10.9 L D Hct 28.9 L 32.3 L MCV 88.0 87.3 MCHC 33.2 33.7 RDW 15.6 15.1 Plt Count 100 L D 117 L MPV 10.0 10.9 Neutrophils % 59.1 66.2 Lymphocytes % 29.2 24.9 Monocytes % 7.2 5.9 Eosinophils % 3.8 2.0 Basophils % 0.7 1.0 INR Sodium Potassium Chloride Carbon Dioxide Anion Gap BUN Creatinine Creat Clearance w eGFR POC Glucometer 113 Random Glucose Calcium Total Bilirubin AST ALT Alkaline Phosphatase Total Protein Albumin Stool Occult Blood Blood Type Antibody Screen Crossmatch Active Medications Generic Name Dose Route Start Last Admin Trade Name Freq PRN Reason Stop Dose Admin Acetaminophen 650 mg 05/26/16 14:23 01/21/17 10:26 Tylenol Oral Solution - GT 650 mg Q4H PRN Administration FEVER Amino Acids 30 ml 06/28/16 10:00 01/25/17 11:27 Prostat Sugar-Free Packet - PO Not Given DAILY KWAKU Amlodipine Besylate 10 mg 12/30/15 10:00 01/25/17 11:26 Norvasc - GT Not Given DAILY KWAKU Pantoprazole Sodium 80 mg/ 100 mls @ 10 mls/hr 01/25/17 07:45 01/25/17 07:51 Sodium Chloride IVPB 10 mls/hr Q10H KWAKU Administration 8 MG/HR Sodium Chloride 1,000 mls @ 125 mls/hr 01/25/17 07:49 01/25/17 09:24 Normal Saline - IV 125 mls/hr ASDIR KWAKU Administration Insulin Aspart 1 vial 09/17/16 16:30 01/25/17 11:30 Novolog Vial Sliding Scale - SQ Not Given ACHS [facility] Protocol Insulin Detemir 20 units 09/21/16 13:25 01/24/17 23:46 Levemir Vial SQ 20 units HS KWAKU Administration Lisinopril 40 mg 12/30/15 10:00 01/25/17 11:27 Prinivil GT Not Given DAILY [facility] Metoprolol Tartrate 150 mg 11/28/16 10:00 01/25/17 11:26 Lopressor - GT Not Given BID KWAKU Multi-Ingredient Lotion 1 applic 11/07/16 11:55 Eucerin (Large Jar) - TP BID PRN DRY SKIN Scopolamine HBr 1 patch 12/10/16 11:00 01/24/17 10:40 Transderm-Scop - TD 1 patch Q72H KWAKU Administration Simethicone 40 mg 12/29/16 10:15 01/25/17 11:26 Mylicon Liquid - PO Not Given BID [facility] Imaging 01/25/17 CTAP with IV contrast: (1) No active intraluminal bleed in the stomach or small bowel; limited evaluation of colon for bleeding due to motion and extensive precontrast dense diverticula; small amound of layering density in proximal descending colon could represent venous bleed, no definite arterial bleed; s/p right hemicolectomy; no evidence of bowel obstruction; left UPJ obstruction unchanged; large right inguinal hernia containing a large portion of the urinary bladder; IVC filter ASSESSMENT/PLAN: 75 year old male with PMH of HTN, IDDM, inguinal hernia who presented to the ED with diverticular bleed s/p right hemicolectomy. 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 Over past 12 hours multiple episodes of dark red melena. Acute lower GI bleed Extensive diverticulosis h/o diverticular bleed, s/p right hemicolectomy --3-4 very large dark maroon liquid stools today, first one at 5:45 am. --CTAP shows signs of venous bleeding --fluid bolused NS x 1 L, continue 125mL/hr --protonix drip started --transfused 1U PRBC, hgb is stable (11.0-->9.6-->10.9); one dose Lasix given --presently hemodynamically stable; hold PO antihypertensives --GI Dr. Cast will see patient Central sleep apnea --seen and evaluated by pulmonary, breathing pauses are due to central apneas secondary to anoxic brain injury; no observed evidence of GRANT --no desaturation --O2 as needed Anoxic brain injury s/p brainstem CVAs --mental status unchanged Respiratory failure secondary to anoxic brain injury, resolved --on room air, nasal cannula PRN --trach removed 09/09/16 --duonebs PRN Hydronephrosis, chronic --renal function stable Right inguinal hernia --seen again on CT today, large portion of urinary bladder contained in the hernia Functional quadriplegia secondary to anoxic brain injury --inability to feed, turn, or toilet independently; requires complete care Hypertension --BP stable --hold lisinopril, metoprolol, amlodipine due to active GI bleed Stage III pressure ulcers buttocks, healed IDDM --hold Levemir while NPO --Novolog sliding scale coverage F/E/N Fluids/Nutrition: hold tube feeds Electrolytes: replete as indicated DVT prophylaxis --SCDs bilaterally --no chemical anticoagulation 2/2 spontaneous gluteal bleed and severe GI bleed Dispo: continues to require inpatient care. DNR. Visit type - Emergency Visit Emergency Visit: Yes ED Registration Date: 06/27/15 Care time: The patient presented to the Emergency Department on the above date and was hospitalized for further evaluation of their emergent condition. - New Patient This patient is new to me today: Yes Date on this admission: 01/25/17 - Critical Care Critical Care patient: Yes Total Critical Care Time (in minutes): 45 Critical Care Statement: The care of this patient involved high complexity decision making to prevent further life threatening deterioration of the patient 's condition and/or to evalute & treat vital organ system(s) failure or risk of failure.
--- NOTE | 2017-01-25 21:03 | HOSP ---
Subjective - Review of Symptoms Events since last encounter: Nurse called to ask if she should give levemir as GT feeds on hold. Will hold current dose and give 50% dose due to no feed status. Also questioned administration of metoprolol. Given DBP>80 and HR 90-100s will give. Physical Examination Vital Signs: Vital Signs Temperature 97.9 F 01/25/17 18:21 Pulse Rate 115 H 01/25/17 18:21 Respiratory Rate 22 01/25/17 18:21 Blood Pressure 131/86 01/25/17 18:21 O2 Sat by Pulse Oximetry (%) 98 01/25/17 09:00 Labs: CBC, BMP 01/25/17 15:30 01/25/17 06:01
[2017-01-25 21:34] LABS: BASOPHIL 0.9 % (0-2.0); EOSINOPHIL 3.1 % (0-4.5); MCH 29.7 pg (25.7-33.7); MCHC 33.8 g/dl (32.0-35.9); MEAN CELL VOLUME 87.7 fl (80-96); MEAN PLT VOLUME 10.8 fl (7.5-11.1); NEUTROPHILS 66.5 % (42.8-82.8); PLATELET COUNT 118 K/MM3 (134-434); RDW 15.4 % (11.9-15.9); WHITE BLOOD COUNT 11.9 K/mm3 (4.0-10.0)
[2017-01-25 21:43] LABS: ALK PHOS 97 U/L (45-117); ANION GAP 11 (8-16); BILIRUBIN,TOTAL 0.5 mg/dL (0.2-1.0); CALCIUM 8.4 mg/dL (8.5-10.1); CO2 27 mmol/L (21-32); CREATININE 0.9 mg/dL (0.7-1.3); GLUCOSE,RANDOM 110 mg/dL (74-106); SGOT/AST 12 U/L (15-37); SGPT/ALT 32 U/L (12-78); TOT PROT 6.8 g/dl (6.4-8.2)
[2017-01-25 21:48] LABS: INR 1.36 (0.82-1.09)
[2017-01-26] MEDS: PANTOPRAZOLE SODIUM 80 MG in SODIUM CHLORIDE 100 ML IVPB SCH ×4 (02:38→23:45)
[2017-01-26] MEDS: SODIUM CHLORIDE 1,000 ML IV SCH ×2 (03:36→13:25)
[2017-01-26] MEDS: INSULIN SLIDING SCALE (NOVOLOG) 1 VIAL SQ SCH ×4 (06:06→22:41)
[2017-01-26 08:10] LABS: MCH 28.9 pg (25.7-33.7); MCHC 32.6 g/dl (32.0-35.9); MEAN CELL VOLUME 88.6 fl (80-96); MEAN PLT VOLUME 9.4 fl (7.5-11.1); PLATELET COUNT 405 K/MM3 (134-434); RDW 15.1 % (11.9-15.9); WHITE BLOOD COUNT 19.8 K/mm3 (4.0-10.0)
[2017-01-26 08:39] LABS: METAMYELOCYTE 1 % (0-2)
[2017-01-26 08:40] LABS: PLATELET ESTIMATE ADEQUATE (NORMAL)
[2017-01-26 10:08] LABS: BASOPHIL 0.7 % (0-2.0); EOSINOPHIL 4.4 % (0-4.5); MCH 29.2 pg (25.7-33.7); MCHC 32.9 g/dl (32.0-35.9); MEAN CELL VOLUME 88.7 fl (80-96); MEAN PLT VOLUME 10.6 fl (7.5-11.1); NEUTROPHILS 59.4 % (42.8-82.8); RDW 15.6 % (11.9-15.9)
[2017-01-26 10:38] LABS: ALK PHOS 90 U/L (45-117); ANION GAP 9 (8-16); BILIRUBIN,TOTAL 0.4 mg/dL (0.2-1.0); CALCIUM 8.6 mg/dL (8.5-10.1); CO2 26 mmol/L (21-32); CREATININE 0.8 mg/dL (0.7-1.3); GLUCOSE,RANDOM 105 mg/dL (74-106); MAGNESIUM 2.1 mg/dL (1.8-2.4); PHOSPHOROUS 2.9 mg/dL (2.5-4.9); SGOT/AST 14 U/L (15-37); SGPT/ALT 29 U/L (12-78); TOT PROT 6.7 g/dl (6.4-8.2)
[2017-01-26 11:24] LABS: PLATELET COMMENT2 UNABLE TO ENUMERATE; PLATELET ESTIMATE DECREASED (NORMAL)
[2017-01-26] MEDS: LISINOPRIL 20 MG TABLET (FP) GT SCH (11:58)
[2017-01-26] MEDS: METOPROLOL TARTRATE 50 MG TABLET (FP) GT SCH (11:59)
[2017-01-26] MEDS: amLODIPine BESYLATE 10 MG TABLET (FP) GT SCH (11:59)
[2017-01-26] MEDS: SIMETHICONE 40 MG/0.6 ML BOTTLE PO SCH (12:00)
[2017-01-26] MEDS: AMINO ACIDS/PROTEIN HYDROLYS SUGAR-FREE 30 ML PACKET PO SCH (12:05)
[2017-01-26] MEDS: MULTIVIT-MINERALS 236 ML ML GT SCH (12:06)
--- NOTE | 2017-01-26 12:24 | PN ---
Progress Note (short form) - Note Progress Note: asked to see for leukocytosis s/p GI bleed 2 bloody BMS yesterday, none today elevated sbc on am labs, repeated and resolved no fevers Vital Signs Period Temp Pulse Resp BP Sys/Santiago Pulse Ox Last 24 Hr 97.3 F-98.7 F 83-115 18-22 115-134/70-86 98 eyes open resting comfortably, does not track you with his eyes, does not follow commands cor-rrr lungs decreased bs at bases abd soft, +BS, +GT ext no edema +[place] catheter CBC, BMP 01/26/17 09:43 01/26/17 09:43 cxray unchanged cts abd/pelvis- no active bleed, bilateral lower lobe atelectasis a/p GI bleed - management per GI leukosytosis- transient probably related to bleed observe off antibiotics cultures are pending no signs pneumonia please call back if needed
--- NOTE | 2017-01-26 16:06 | PN ---
Physical Exam: SUBJECTIVE: Patient seen and examined at bedside. Large melanotic stool at 5: 00pm. OBJECTIVE: Vital Signs Period Temp Pulse Resp BP Sys/Santiago Pulse Ox Last 24 Hr 97.7 F-98.7 F 71-115 18-22 115-134/60-86 98 GENERAL/NEURO: Eyes open. Non-verbal. Does not follow commands. Non-purposeful movement. HEAD: Normal with no signs of trauma. NECK: Tracheostomy site closed, well-healed. EYES: PERRL, extraocular movements intact, sclera anicteric, conjunctiva clear. No ptosis. ENT: Ears normal, nares patent, oropharynx clear without exudates, moist mucous membranes. LUNGS: CTA HEART: Regular rate and rhythm, S1, S2 without murmur, rub or gallop. ABDOMEN: Soft, nontender, nondistended, normoactive bowel sounds, no guarding, no rebound, no hepatosplenomegaly, no masses. PEG tube in situ, skin clean, dry , no sign of infection : Condom cath to [place]ell[place] bag draining clear urine. EXTREMITIES: 2+ pulses, warm, well-perfused, no edema. Laboratory Results - last 24 hr 01/25/17 01/25/17 01/25/17 17:35 20:40 20:40 WBC RBC Hgb Hct MCV MCHC RDW Plt Count MPV Neutrophils % Lymphocytes % Monocytes % Eosinophils % Basophils % Metamyelocytes Myelocytes Differential Comment Platelet Estimate Platelet Comment INR 1.36 H Sodium 148 H Potassium 3.6 Chloride 110 H Carbon Dioxide 27 Anion Gap 11 BUN 19 H Creatinine 0.9 Creat Clearance w eGFR > 60 POC Glucometer 154 Random Glucose 110 H D Calcium 8.4 L Phosphorus Magnesium 2.0 Total Bilirubin 0.5 D AST 12 L D ALT 32 Alkaline Phosphatase 97 D Total Protein 6.8 Albumin 3.0 L 01/25/17 01/25/17 01/26/17 21:00 22:32 05:17 WBC 11.9 H RBC 3.39 L Hgb 10.0 L Hct 29.7 L MCV 87.7 MCHC 33.8 RDW 15.4 Plt Count 118 L MPV 10.8 Neutrophils % 66.5 Lymphocytes % 24.3 Monocytes % 5.2 Eosinophils % 3.1 Basophils % 0.9 Metamyelocytes Myelocytes Differential Comment Platelet Estimate Platelet Comment INR Sodium Potassium Chloride Carbon Dioxide Anion Gap BUN Creatinine Creat Clearance w eGFR POC Glucometer 126 130 Random Glucose Calcium Phosphorus Magnesium Total Bilirubin AST ALT Alkaline Phosphatase Total Protein Albumin 01/26/17 01/26/17 01/26/17 06:00 09:43 09:43 WBC 19.8 H D 11.0 H D RBC 3.84 L 3.21 L Hgb 11.1 L D 9.4 L D Hct 34.0 L 28.4 L D MCV 88.6 88.7 MCHC 32.6 32.9 RDW 15.1 15.6 Plt Count 405 D TNP MPV 9.4 D 10.6 D Neutrophils % 92.0 H D 59.4 D Lymphocytes % 2.0 L D 29.7 D Monocytes % 4.0 5.8 Eosinophils % 4.4 Basophils % 0.7 Metamyelocytes 1 Myelocytes 1 Differential Comment Manual diff done Platelet Estimate Adequate Decreased Platelet Comment Unable to enumerate INR Sodium 148 H Potassium 3.7 Chloride 113 H Carbon Dioxide 26 Anion Gap 9 BUN 18 Creatinine 0.8 Creat Clearance w eGFR > 60 POC Glucometer Random Glucose 105 Calcium 8.6 Phosphorus 2.9 Magnesium 2.1 Total Bilirubin 0.4 AST 14 L ALT 29 Alkaline Phosphatase 90 Total Protein 6.7 Albumin 3.0 L 01/26/17 12:10 WBC RBC Hgb Hct MCV MCHC RDW Plt Count MPV Neutrophils % Lymphocytes % Monocytes % Eosinophils % Basophils % Metamyelocytes Myelocytes Differential Comment Platelet Estimate Platelet Comment INR Sodium Potassium Chloride Carbon Dioxide Anion Gap BUN Creatinine Creat Clearance w eGFR POC Glucometer 137 Random Glucose Calcium Phosphorus Magnesium Total Bilirubin AST ALT Alkaline Phosphatase Total Protein Albumin Active Medications Generic Name Dose Route Start Last Admin Trade Name Ginette PRN Reason Stop Dose Admin Acetaminophen 650 mg 05/26/16 14:23 01/21/17 10:26 Tylenol Oral Solution - GT 650 mg Q4H PRN Administration FEVER Amino Acids 30 ml 06/28/16 10:00 01/26/17 12:05 Prostat Sugar-Free Packet - PO 30 ml DAILY [facility]AKU Administration Amlodipine Besylate 10 mg 12/30/15 10:00 01/26/17 11:59 Norvasc - GT 10 mg DAILY [facility] Administration Pantoprazole Sodium 80 mg/ 100 mls @ 10 mls/hr 01/25/17 07:45 01/26/17 15:46 Sodium Chloride IVPB 10 mls/hr Q10H KWAKU Administration 8 MG/HR Sodium Chloride 1,000 mls @ 125 mls/hr 01/25/17 07:49 01/26/17 13:25 Normal Saline - IV Not Given ASDIR KWAKU Insulin Aspart 1 vial 09/17/16 16:30 01/26/17 12:23 Novolog Vial Sliding Scale - SQ Not Given ACHS [facility] Protocol Insulin Detemir 20 units 09/21/16 13:25 01/24/17 23:46 Levemir Vial SQ 20 units HS KWAKU Administration Lisinopril 40 mg 12/30/15 10:00 01/26/17 11:58 Prinivil GT 40 mg DAILY [facility]U Administration Metoprolol Tartrate 150 mg 11/28/16 10:00 01/26/17 11:59 Lopressor - GT 150 mg BID [facility]AKU Administration Multi-Ingredient Lotion 1 applic 11/07/16 11:55 Eucerin (Large Jar) - TP BID PRN DRY SKIN Scopolamine HBr 1 patch 12/10/16 11:00 01/24/17 10:40 Transderm-Scop - TD 1 patch Q72H [facility]U Administration Simethicone 40 mg 12/29/16 10:15 01/26/17 12:00 Mylicon Liquid - PO 40 mg BID KWAKU Administration Imaging 01/25/17 CTAP with IV contrast: (1) No active intraluminal bleed in the stomach or small bowel; limited evaluation of colon for bleeding due to motion and extensive precontrast dense diverticula; small amound of layering density in proximal descending colon could represent venous bleed, no definite arterial bleed; s/p right hemicolectomy; no evidence of bowel obstruction; left UPJ obstruction unchanged; large right inguinal hernia containing a large portion of the urinary bladder; IVC filter ASSESSMENT/PLAN: 75 year old male with PMH of HTN, IDDM, inguinal hernia who presented to the ED with diverticular bleed s/p right hemicolectomy. 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 Over past 12 hours multiple episodes of dark red melena. Acute lower GI bleed started 01/25/17 Extensive diverticulosis h/o diverticular bleed, s/p right hemicolectomy --transfused: 01/25 1U PRBC; --01/26: drop in Hgb 11.1-->8.3; transfuse 2 U PRBC; GI Dr. Blackburn ordered FFP, platelets --continue protonix drip Hypernatremia --start 1/2 NS @ 100mL Central sleep apnea --seen and evaluated by pulmonary, breathing pauses are due to central apneas secondary to anoxic brain injury; no observed evidence of GRANT --no desaturation --O2 as needed Anoxic brain injury s/p brainstem CVAs --mental status unchanged Respiratory failure secondary to anoxic brain injury, resolved --on room air, nasal cannula PRN --trach removed 09/09/16 --duonebs PRN Hydronephrosis, chronic --renal function stable Right inguinal hernia --seen again on CT today, large portion of urinary bladder contained in the hernia Functional quadriplegia secondary to anoxic brain injury --inability to feed, turn, or toilet independently; requires complete care Hypertension --BP stable --hold lisinopril, metoprolol, amlodipine due to active GI bleed Stage III pressure ulcers buttocks, healed IDDM --hold Levemir while NPO --Novolog sliding scale coverage F/E/N Fluids/Nutrition: hold tube feeds Electrolytes: replete as indicated DVT prophylaxis --SCDs bilaterally --no chemical anticoagulation 2/2 spontaneous gluteal bleed and severe GI bleed Dispo: continues to require inpatient care. DNR. Visit type - Emergency Visit Emergency Visit: Yes ED Registration Date: 06/27/15 Care time: The patient presented to the Emergency Department on the above date and was hospitalized for further evaluation of their emergent condition. - New Patient This patient is new to me today: No - Critical Care Critical Care patient: No
[2017-01-26] MEDS: SODIUM CHLORIDE 0.45% 1,000 ML IV SCH (17:00)
[2017-01-26 17:43] LABS: BASOPHIL 0.5 % (0-2.0); EOSINOPHIL 3.7 % (0-4.5); MCH 29.5 pg (25.7-33.7); MCHC 33.3 g/dl (32.0-35.9); MEAN CELL VOLUME 88.6 fl (80-96); MEAN PLT VOLUME 10.6 fl (7.5-11.1); NEUTROPHILS 60.8 % (42.8-82.8); PLATELET COUNT 107 K/MM3 (134-434); RDW 15.6 % (11.9-15.9)
[2017-01-26 22:23] LABS: URINE APPEARANCE CLEAR; URINE BILIRUBIN NEGATIVE (NEGATIVE); URINE BLOOD NEGATIVE (NEGATIVE); URINE COLOR STRAW; URINE GLUCOSE (UA) NEGATIVE (NEGATIVE); URINE KETONE NEGATIVE (NEGATIVE); URINE LEUK ESTERASE NEGATIVE (NEGATIVE); URINE NITRITE NEGATIVE (NEGATIVE); URINE PROTEIN NEGATIVE (NEGATIVE); URINE UROBILINOGEN NEGATIVE E.U./dl (0.2-1.0)
[2017-01-26] MEDS: INSULIN DETEMIR 100 UNITS/ML MDV SQ SCH (22:52)
[2017-01-27] MEDS: PANTOPRAZOLE SODIUM 80 MG in SODIUM CHLORIDE 100 ML IVPB SCH ×2 (03:06→13:43)
[2017-01-27 08:30] LABS: BASOPHIL 0.4 % (0-2.0); EOSINOPHIL 2.8 % (0-4.5); MCH 29.4 pg (25.7-33.7); MCHC 33.4 g/dl (32.0-35.9); MEAN CELL VOLUME 87.9 fl (80-96); MEAN PLT VOLUME 10.1 fl (7.5-11.1); NEUTROPHILS 68.5 % (42.8-82.8); PLATELET COUNT 97 K/MM3 (134-434); RDW 15.9 % (11.9-15.9); WHITE BLOOD COUNT 11.1 K/mm3 (4.0-10.0)
[2017-01-27 08:32] LABS: INR 1.35 (0.82-1.09); PROTHROMBIN TIME (PATIENT) 14.9 SEC (9.98-11.88)
[2017-01-27] MEDS: INSULIN SLIDING SCALE (NOVOLOG) 1 VIAL SQ SCH ×4 (08:57→22:00)
[2017-01-27 09:03] LABS: ALBUMIN 3.1 g/dl (3.4-5.0); ANION GAP 11 (8-16); CALCIUM 8.9 mg/dL (8.5-10.1); CO2 24 mmol/L (21-32); GLUCOSE,RANDOM 104 mg/dL (74-106)
[2017-01-27 09:24] LABS: ALK PHOS 87 U/L (45-117); BILIRUBIN,TOTAL 1.2 mg/dL (0.2-1.0); CREATININE 0.7 mg/dL (0.7-1.3); MAGNESIUM 1.7 mg/dL (1.8-2.4); PHOSPHOROUS 2.4 mg/dL (2.5-4.9); SGOT/AST 13 U/L (15-37); SGPT/ALT 24 U/L (12-78); TOT PROT 6.8 g/dl (6.4-8.2)
[2017-01-27] MEDS: amLODIPine BESYLATE 10 MG TABLET (FP) GT SCH (11:45)
[2017-01-27] MEDS: SCOPOLAMINE HYDROBROMIDE 1 PATCH PATCH.TD72 TD SCH (11:45)
[2017-01-27] MEDS: SIMETHICONE 40 MG/0.6 ML BOTTLE PO SCH ×2 (11:45→22:34)
[2017-01-27] MEDS: MULTIVIT-MINERALS 236 ML ML GT SCH (11:45)
--- NOTE | 2017-01-27 12:17 | PN ---
Physical Exam: SUBJECTIVE: Patient seen and examined at bedside. Last melena episode 01/26 at 5: 00pm. No further episodes overnight. 48 hour events --01/25: 4 episodes of melanotic stool; transfused 1 unit PRBC --01/26: 1 episode melena; drop in Hgb over 12 hours 11.1->8.3; transfused overnight 01/26-01/27 two (2) units PRBC, 1 platelets, 2 FFP; Hgb 10.2 OBJECTIVE: Vital Signs Period Temp Pulse Resp BP Sys/Santiago Pulse Ox Last 24 Hr 98.2 F-98.9 F 71-107 18-22 120-143/60-85 98-99 GENERAL/NEURO: Eyes open. Non-verbal. Does not follow commands. Non-purposeful movement. HEAD: Normal with no signs of trauma. NECK: Tracheostomy site closed, well-healed. EYES: PERRL, extraocular movements intact, sclera anicteric, conjunctiva clear. No ptosis. ENT: Ears normal, nares patent, oropharynx clear without exudates, moist mucous membranes. LUNGS: CTA HEART: Regular rate and rhythm, S1, S2 without murmur, rub or gallop. ABDOMEN: Soft, nontender, nondistended, normoactive bowel sounds, no guarding, no rebound, no hepatosplenomegaly, no masses. PEG tube in situ, skin clean, dry , no sign of infection : Condom cath to castellano bag draining clear urine. EXTREMITIES: 2+ pulses, warm, well-perfused, no edema. Laboratory Results - last 24 hr 01/25/17 01/26/17 01/26/17 06:00 12:10 16:10 WBC 10.0 RBC 2.81 L Hgb 8.3 L D Hct 24.9 L MCV 88.6 MCHC 33.3 RDW 15.6 Plt Count 107 L D MPV 10.6 Neutrophils % 60.8 Lymphocytes % 28.2 Monocytes % 6.8 Eosinophils % 3.7 Basophils % 0.5 INR Sodium Potassium Chloride Carbon Dioxide Anion Gap BUN Creatinine Creat Clearance w eGFR POC Glucometer 137 Random Glucose Calcium Phosphorus Magnesium Total Bilirubin AST ALT Alkaline Phosphatase Total Protein Albumin Urine Color Urine Appearance Urine pH Ur Specific [place] Urine Protein Urine Glucose (UA) Urine Ketones Urine Blood Urine Nitrite Urine Bilirubin Urine Urobilinogen Ur Leukocyte Esterase Blood Type O POSITIVE Antibody Screen Negative Crossmatch See Detail 01/26/17 01/26/17 01/26/17 17:23 21:05 22:31 WBC RBC Hgb Hct MCV MCHC RDW Plt Count MPV Neutrophils % Lymphocytes % Monocytes % Eosinophils % Basophils % INR Sodium Potassium Chloride Carbon Dioxide Anion Gap BUN Creatinine Creat Clearance w eGFR POC Glucometer 126 120 Random Glucose Calcium Phosphorus Magnesium Total Bilirubin AST ALT Alkaline Phosphatase Total Protein Albumin Urine Color Straw Urine Appearance Clear Urine pH 7.0 Ur Specific [place] 1.012 Urine Protein Negative Urine Glucose (UA) Negative Urine Ketones Negative Urine Blood Negative Urine Nitrite Negative Urine Bilirubin Negative Urine Urobilinogen Negative Ur Leukocyte Esterase Negative Blood Type Antibody Screen Crossmatch 01/27/17 01/27/17 01/27/17 06:30 06:30 06:30 WBC 11.1 H RBC 3.49 L D Hgb 10.2 L D Hct 30.6 L D MCV 87.9 MCHC 33.4 RDW 15.9 Plt Count 97 L MPV 10.1 Neutrophils % 68.5 Lymphocytes % 22.4 D Monocytes % 5.9 Eosinophils % 2.8 Basophils % 0.4 INR 1.35 H Sodium 146 H Potassium 3.2 L Chloride 111 H Carbon Dioxide 24 Anion Gap 11 BUN 13 D Creatinine 0.7 Creat Clearance w eGFR > 60 POC Glucometer Random Glucose 104 Calcium 8.9 Phosphorus 2.4 L Magnesium 1.7 L Total Bilirubin 1.2 H D AST 13 L ALT 24 Alkaline Phosphatase 87 Total Protein 6.8 Albumin 3.1 L Urine Color Urine Appearance Urine pH Ur Specific [place] Urine Protein Urine Glucose (UA) Urine Ketones Urine Blood Urine Nitrite Urine Bilirubin Urine Urobilinogen Ur Leukocyte Esterase Blood Type Antibody Screen Crossmatch 01/27/17 01/27/17 06:39 11:41 WBC RBC Hgb Hct MCV MCHC RDW Plt Count MPV Neutrophils % Lymphocytes % Monocytes % Eosinophils % Basophils % INR Sodium Potassium Chloride Carbon Dioxide Anion Gap BUN Creatinine Creat Clearance w eGFR POC Glucometer 121 137 Random Glucose Calcium Phosphorus Magnesium Total Bilirubin AST ALT Alkaline Phosphatase Total Protein Albumin Urine Color Urine Appearance Urine pH Ur Specific [place] Urine Protein Urine Glucose (UA) Urine Ketones Urine Blood Urine Nitrite Urine Bilirubin Urine Urobilinogen Ur Leukocyte Esterase Blood Type Antibody Screen Crossmatch Active Medications Generic Name Dose Route Start Last Admin Trade Name Freq PRN Reason Stop Dose Admin Acetaminophen 650 mg 05/26/16 14:23 01/21/17 10:26 Tylenol Oral Solution - GT 650 mg Q4H PRN Administration FEVER Amino Acids 30 ml 06/28/16 10:00 01/26/17 12:05 Prostat Sugar-Free Packet - PO 30 ml DAILY KWAKU Administration Amlodipine Besylate 10 mg 12/30/15 10:00 01/26/17 11:59 Norvasc - GT 10 mg DAILY K[facility]AKU Administration Pantoprazole Sodium 80 mg/ 100 mls @ 10 mls/hr 01/25/17 07:45 01/27/17 03:06 Sodium Chloride IVPB 10 mls/hr Q10H KWAKU Administration 8 MG/HR Sodium Chloride 1,000 mls @ 100 mls/hr 01/26/17 16:15 01/26/17 17:00 1/2 Normal Saline IV 100 mls/hr ASDIR [facility] Administration Insulin Aspart 1 vial 09/17/16 16:30 01/27/17 08:57 Novolog Vial Sliding Scale - SQ Not Given ACHS [facility] Protocol Insulin Detemir 20 units 09/21/16 13:25 01/26/17 22:52 Levemir Vial SQ Not Given HS [facility] Lisinopril 40 mg 12/30/15 10:00 01/26/17 11:58 Prinivil GT 40 mg DAILY [facility] Administration Magnesium Sulfate 2 gm 01/27/17 12:11 Magnesium Sulfate IVPB 01/27/17 12:12 ONCE ONE Metoprolol Tartrate 150 mg 11/28/16 10:00 01/26/17 11:59 Lopressor - GT 150 mg BID [facility]U Administration Multi-Ingredient Lotion 1 applic 11/07/16 11:55 Eucerin (Large Jar) - TP BID PRN DRY SKIN Potassium Chloride 40 meq 01/27/17 12:15 Kcl Oral Solution - GT 01/28/17 12:16 ONCE K[facility]U Scopolamine HBr 1 patch 12/10/16 11:00 01/24/17 10:40 Transderm-Scop - TD 1 patch Q72H [facility] Administration Simethicone 40 mg 12/29/16 10:15 01/26/17 12:00 Mylicon Liquid - PO 40 mg BID KWAKU Administration ASSESSMENT/PLAN: Imaging 01/25/17 CTAP with IV contrast: (1) No active intraluminal bleed in the stomach or small bowel; limited evaluation of colon for bleeding due to motion and extensive precontrast dense diverticula; small amound of layering density in proximal descending colon could represent venous bleed, no definite arterial bleed; s/p right hemicolectomy; no evidence of bowel obstruction; left UPJ obstruction unchanged; large right inguinal hernia containing a large portion of the urinary bladder; IVC filter ASSESSMENT/PLAN: 75 year old male with PMH of HTN, IDDM, inguinal hernia who presented to the ED with diverticular bleed s/p right hemicolectomy. 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 Now with lower GI bleeding. Acute lower GI bleed started 01/25/17 Extensive diverticulosis h/o diverticular bleed, s/p right hemicolectomy --transfused 2 PRBC, 1 platelets, 2 FFP overnight --hgb 10.2 this morning --continue protonix drip --discussed with Dr. Blackburn who will see patient today --discussed with LEELEE Vogel; will try to set up family meeting on Sunday with Carole Mayfield, daughter, to discuss goals of care and DNI status Hypernatremia --improving NA 148->146 --continue 1/2 NS @ 100mL Central sleep apnea --seen and evaluated by pulmonary, breathing pauses are due to central apneas secondary to anoxic brain injury; no observed evidence of GRANT --no desaturation --O2 as needed Anoxic brain injury s/p brainstem CVAs --mental status unchanged Respiratory failure secondary to anoxic brain injury, resolved --on room air, nasal cannula PRN --trach removed 09/09/16 --duonebs PRN Hydronephrosis, chronic --renal function stable Right inguinal hernia --seen again on CT today, large portion of urinary bladder contained in the hernia Functional quadriplegia secondary to anoxic brain injury --inability to feed, turn, or toilet independently; requires complete care Hypertension --BP stable --hold lisinopril, metoprolol, amlodipine due to active GI bleed Stage III pressure ulcers buttocks, healed IDDM --hold Levemir while NPO --Novolog sliding scale coverage F/E/N Fluids/Nutrition: hold tube feeds Electrolytes: replete as indicated DVT prophylaxis --SCDs bilaterally --no chemical anticoagulation 2/2 spontaneous gluteal bleed and severe GI bleed Dispo: continues to require inpatient care. DNR. Visit type - Emergency Visit Emergency Visit: Yes ED Registration Date: 06/27/15 Care time: The patient presented to the Emergency Department on the above date and was hospitalized for further evaluation of their emergent condition. - New Patient This patient is new to me today: No - Critical Care Critical Care patient: No
--- NOTE | 2017-01-27 12:45 | CON.GI ---
Consult Consult Specialty:: GI` Referred by:: Hospitalist Reason for Consultation:: GI bleed - History of Present Illness Chief Complaint: Patient with anoxic encephalopathy now with BRBPR x 1 yesterday History of Present Illness: Patient with multple medical problems including anoxic encephalopathy, currently breathing without assist, hospitalized for 580 days, now with single episode of BRBPR. Given 1 unit PRBC with Hgb 8.3--> 10.2. Also given platelets and FFp. No further bleeding noted. Patient is unresponsive and is DNR. - History Source History Provided By: Medical Record Limitations to Obtaining History: Clinical Condition - Past Medical History [employer]: Yes: CVA Cardio/Vascular: Yes: HTN Pulmonary: Yes: Other (past vent dependent) Gastrointestinal: Yes: GI Bleed Endocrine: Yes: Diabetes Mellitus - Past Surgical History Past Surgical History: Yes: Colectomy Additional Surgical History: s/p right hemicolectomy, tracheostomy, PEG tube placement, and IVC filter. - Alcohol/Substance Use Hx Alcohol Use: No - Smoking History Smoking history: Never smoked Have you smoked in the past 12 months: No Aproximately how many cigarettes per day: 0 Home Medications - Allergies Allergies/Adverse Reactions: Allergies Allergy/AdvReac Type Severity Reaction Status Date / Time No Known Allergies Allergy Verified 06/26/15 21:31 - Home Medications Home Medications: Ambulatory Orders Amino Acids/Protein Hydrolys [Prostat Sugar-Free Packet -] 30 ml GT DAILY packet 08/09/15 Amlodipine Besylate [Norvasc -] 10 mg GT DAILY tablet 08/09/15 Chlorhexidine Gluconate [Peridex -] 15 ml MM BID cup 08/09/15 Insulin (Levemir) [Levemir Flexpen -] 25 units SQ HS pen 08/09/15 Insulin (Novolog) [Novolog Flexpen -] 3 units SQ Q6HPO pen 08/09/15 Insulin Sliding Scale [Novolog Vial Sliding Scale -] 0 units SQ Q6HPO pen 08/09 Lisinopril [Prinivil] 20 mg GT DAILY tablet 08/09/15 Metoprolol Tartrate Injection [Lopressor Injection -] 5 mg IVPB Q6H PRN #0 vial 08/09/15 Metoprolol Tartrate [Lopressor -] 100 mg GT BID tablet 08/09/15 Ondansetron Injection [Zofran Injection] 4 mg IVPB Q6H PRN #0 vial 08/09/15 Pantoprazole Suspension [Protonix Packets For Oral Suspension -] 40 mg GT DAILY packet 08/09/15 Vancomycin Oral Solution 125 mg GT Q6HPO ml 08/09/15 Family Disease History - Family Disease History Other Family History: non-contributory Physical Exam-GI Vital Signs: Vital Signs Temperature 98.9 F 01/27/17 09:03 Pulse Rate 107 H 01/27/17 09:03 Respiratory Rate 22 01/27/17 09:03 Blood Pressure 141/85 01/27/17 09:03 O2 Sat by Pulse Oximetry (%) 99 01/27/17 09:00 Constitutional: Yes: Cachectic, Thin HENT: Yes: Normocephalic Cardiovascular: Yes: Regular Rate and Rhythm Respiratory: Yes: CTA Bilaterally ...Auscultate: Yes: Normoactive Bowel Sounds ...Palpate: Yes: Soft Neurological: Yes: Unresponsive Labs: CBC, BMP 01/27/17 06:30 01/27/17 06:30 INR, PTT INR 1.35 (0.82-1.09) H 01/27/17 06:30 Hepatic Panel Total Bilirubin 1.2 mg/dL (0.2-1.0) H D 01/27/17 06:30 Direct Bilirubin 0.1 mg/dL (0.0-0.2) 05/19/16 11:00 AST 13 U/L (15-37) L 01/27/17 06:30 ALT 24 U/L (12-78) 01/27/17 06:30 Alkaline Phosphatase 87 U/L (45-117) 01/27/17 06:30 Albumin 3.1 g/dl (3.4-5.0) L 01/27/17 06:30 Assessment/Plan Patient had colonoscopy 05/2015 and was noted to have diverticular bleed. Endoclipping was performed and the patient did not re-bleed. He currently had a single episode of BRBPR. Poss hemorrhoidal, diverticular, or related to bowel ischemia. He is a poor candidate for procedures and will manage conservatively as sedation , prep, and procedure all carry more risk than benefit No further bleeding since giving FFP and platelets. Hgb now >10. Hold TF today and resume tomorrow Overall prognosis is very poor and the patient is a candidate for hospice care
[2017-01-27 16:33] LABS: BASOPHIL 0.4 % (0-2.0); EOSINOPHIL 2.8 % (0-4.5); MCHC 34.5 g/dl (32.0-35.9); MEAN CELL VOLUME 86.9 fl (80-96); MEAN PLT VOLUME 9.6 fl (7.5-11.1); NEUTROPHILS 70.4 % (42.8-82.8); PLATELET COUNT 114 K/MM3 (134-434); RDW 15.3 % (11.9-15.9)
[2017-01-27] MEDS: SODIUM CHLORIDE 0.45% 1,000 ML IV SCH (18:14)
[2017-01-27] MEDS: INSULIN DETEMIR 100 UNITS/ML MDV SQ SCH (22:34)
--- NOTE | 2017-01-27 23:16 | HOSP ---
Subjective - Review of Symptoms Events since last encounter: Hospitalist Encounter Notified by primary RN, that the patient was having dark red bleeding from rectum with large clots On arrival to bedside, patient is non-verbal at baseline, blood soaked linens and diaper coverings noted in receptacle. Vitals taken by nurse P 111, BP 157/81 IV fluids infusing: Protonix Drip, 1/2NS Orders placed Stat CBC, PRBCs x2 Will continue to monitor H/H resulted 06/20, notified RN to start PRBCs Advised RN to inform GI of overnight occurrences- RN received orders from GI Returned to bedside, no change in disposition- VS P 115, BP 125/76, Protonix Drip and IVF continued 0152-Call placed to patient's daughter- voice message left. 0630: Per primary RN, rectal bleeding has subsided. VS: P 115, BP 125/76 0700- Patient's daughter Ms. Carole Mayfield, called back, I informed her of the events overnight and the critical nature, she conveyed her concerns and displeasure with the care and treatment her father is receiving. She states" I have a sister in healthcare who is asking me questions and feels my dad should not be having these bleeding problems since he had his surgery in 2014" Reassurance and education provided. Ms. Mayfield provided her home number [phone] for update. Physical Examination Vital Signs: Vital Signs Temperature 98.5 F 01/27/17 18:00 Pulse Rate 108 H 01/27/17 18:00 Respiratory Rate 16 01/27/17 18:00 Blood Pressure 133/80 01/27/17 18:00 O2 Sat by Pulse Oximetry (%) 99 01/27/17 09:00 Constitutional: Yes: Other (Eyes open. Non-verbal. Does not follow commands. Non -purposeful movement.) Cardiovascular: Yes: Tachycardia, S1, S2 Gastrointestinal: Yes: Normal Bowel Sounds, Soft, Rectal Bleeding, Other (peg situ- intact) Peripheral Pulses WNL: Yes Neurological: Yes: Other (Eyes open. Non-verbal. Does not follow commands. Non- purposeful movement.) Labs: CBC, BMP 01/27/17 16:00 01/27/17 06:30 Laboratory Results - last 24 hr 01/27/17 01/27/17 01/27/17 16:00 16:00 18:13 WBC 11.0 H RBC 3.13 L Hgb 9.4 L Hct 27.1 L MCV 86.9 MCHC 34.5 RDW 15.3 Plt Count 114 L MPV 9.6 Neutrophils % 70.4 Lymphocytes % 20.6 Monocytes % 5.8 Eosinophils % 2.8 Basophils % 0.4 INR Sodium Potassium Chloride Carbon Dioxide Anion Gap BUN Creatinine Creat Clearance w eGFR POC Glucometer 89 Random Glucose Lactic Acid 0.828 Calcium Phosphorus Magnesium Total Bilirubin AST ALT Alkaline Phosphatase Total Protein Albumin Blood Type Antibody Screen Crossmatch 01/27/17 01/28/17 21:48 01:05 WBC 9.9 RBC 2.69 L Hgb 8.0 L D Hct 23.6 L MCV 87.7 MCHC 34.0 RDW 15.6 Plt Count 126 L MPV 9.6 Neutrophils % 66.3 Lymphocytes % 23.2 Monocytes % 6.6 Eosinophils % 3.1 Basophils % 0.8 INR Sodium Potassium Chloride Carbon Dioxide Anion Gap BUN Creatinine Creat Clearance w eGFR POC Glucometer 112 Random Glucose Lactic Acid Calcium Phosphorus Magnesium Total Bilirubin AST ALT Alkaline Phosphatase Total Protein Albumin Blood Type Antibody Screen Crossmatch Current Medications Generic Name Dose Route Start Last Admin Trade Name Freq PRN Reason Stop Dose Admin Acetaminophen 650 mg 05/26/16 14:23 01/21/17 10:26 Tylenol Oral Solution - GT 650 mg Q4H PRN Administration FEVER Amino Acids 30 ml 06/28/16 10:00 01/26/17 12:05 Prostat Sugar-Free Packet - PO 30 ml DAILY K[facility]AKU Administration Amlodipine Besylate 10 mg 12/30/15 10:00 01/27/17 11:45 Norvasc - GT 10 mg DAILY [facility] Administration Pantoprazole Sodium 80 mg/ 100 mls @ 10 mls/hr 01/25/17 07:45 01/27/17 13:43 Sodium Chloride IVPB 10 mls/hr Q10H [facility]AK[facility] Administration 8 MG/HR Sodium Chloride 1,000 mls @ 100 mls/hr 01/26/17 16:15 01/27/17 18:14 1/2 Normal Saline IV Not Given ASDIR [facility] Insulin Aspart 1 vial 09/17/16 16:30 01/27/17 18:15 Novolog Vial Sliding Scale - SQ Not Given ACHS [facility] Protocol Insulin Detemir 20 units 09/21/16 13:25 01/27/17 22:34 Levemir Vial SQ Not Given HS [facility] Lisinopril 40 mg 12/30/15 10:00 01/26/17 11:58 Prinivil GT 40 mg DAILY [facility] Administration Metoprolol Tartrate 150 mg 11/28/16 10:00 01/26/17 11:59 Lopressor - GT 150 mg BID K[facility]AKU Administration Multi-Ingredient Lotion 1 applic 11/07/16 11:55 Eucerin (Large Jar) - TP BID PRN DRY SKIN Potassium Chloride 40 meq 01/27/17 13:30 01/27/17 13:42 Kcl Oral Solution - GT 01/28/17 13:31 40 meq ONCE K[facility]AKU Administration Scopolamine HBr 1 patch 12/10/16 11:00 01/27/17 11:45 Transderm-Scop - TD 1 patch Q72H [facility] Administration Simethicone 40 mg 12/29/16 10:15 01/27/17 22:34 Mylicon Liquid - PO 40 mg BID KWAKU Administration Intake & Output 01/25/17 01/26/17 01/27/17 01/28/17 23:59 23:59 23:59 23:59 Intake Total 2450 1585 0 Output Total 1600 900 900 Balance 850 685 -900 Critical Care Total Critical Care Time (in minutes): 90 Critical Care Statement: The care of this patient involved high complexity decision making to prevent further life threatening deterioration of the patient 's condition and/or to evalute & treat vital organ system(s) failure or risk of failure.
[2017-01-28 01:16] LABS: BASOPHIL 0.8 % (0-2.0); EOSINOPHIL 3.1 % (0-4.5); MCH 29.9 pg (25.7-33.7); MEAN CELL VOLUME 87.7 fl (80-96); MEAN PLT VOLUME 9.6 fl (7.5-11.1); NEUTROPHILS 66.3 % (42.8-82.8); PLATELET COUNT 126 K/MM3 (134-434); RDW 15.6 % (11.9-15.9); WHITE BLOOD COUNT 9.9 K/mm3 (4.0-10.0)
[2017-01-28] MEDS: PANTOPRAZOLE SODIUM 80 MG in SODIUM CHLORIDE 100 ML IVPB SCH ×5 (06:42→23:19)
[2017-01-28] MEDS: INSULIN SLIDING SCALE (NOVOLOG) 1 VIAL SQ SCH ×4 (06:48→23:00)
[2017-01-28 08:00] LABS: BASOPHIL 0.5 % (0-2.0); EOSINOPHIL 3.6 % (0-4.5); MCH 30.6 pg (25.7-33.7); MCHC 34.1 g/dl (32.0-35.9); MEAN CELL VOLUME 89.5 fl (80-96); MEAN PLT VOLUME 8.6 fl (7.5-11.1); NEUTROPHILS 61.6 % (42.8-82.8); PLATELET COUNT 112 K/MM3 (134-434); RDW 15.9 % (11.9-15.9); WHITE BLOOD COUNT 10.2 K/mm3 (4.0-10.0)
[2017-01-28 08:44] LABS: ALBUMIN 3.1 g/dl (3.4-5.0); ALK PHOS 80 U/L (45-117); ANION GAP 12 (8-16); BILIRUBIN,TOTAL 0.9 mg/dL (0.2-1.0); CALCIUM 8.5 mg/dL (8.5-10.1); CO2 22 mmol/L (21-32); CREATININE 0.8 mg/dL (0.7-1.3); GLUCOSE,RANDOM 101 mg/dL (74-106); MAGNESIUM 2.2 mg/dL (1.8-2.4); SGOT/AST 14 U/L (15-37); SGPT/ALT 23 U/L (12-78); TOT PROT 6.6 g/dl (6.4-8.2)
[2017-01-28] MEDS: MULTIVIT-MINERALS 236 ML ML GT SCH (12:21)
[2017-01-28] MEDS: SIMETHICONE 40 MG/0.6 ML BOTTLE PO SCH ×2 (12:21→23:00)
[2017-01-28] MEDS: amLODIPine BESYLATE 10 MG TABLET (FP) GT SCH (12:22)
--- NOTE | 2017-01-28 13:18 | PN ---
GI Progress Note Subjective: Events noted. Patient with no new bleeding today. He is receiving blood and blood products at this time. VSS and otherwise unchanged clinically - Objective Vital Signs: Vital Signs Temperature 97.6 F 01/28/17 09:30 Pulse Rate 107 H 01/28/17 09:30 Respiratory Rate 20 01/28/17 09:30 Blood Pressure 144/76 01/28/17 09:30 O2 Sat by Pulse Oximetry (%) 99 01/28/17 09:00 Constitutional: Thin HENT: Yes: Normocephalic Cardiovascular: Yes: Regular Rate and Rhythm Respiratory: Yes: Regular, CTA Bilaterally ...Auscultate: Yes: Normoactive Bowel Sounds ...Palpate: Yes: Soft Neurological: Yes: Unresponsive Labs: CBC, BMP 01/28/17 07:45 01/28/17 07:45 INR, PTT INR 1.35 (0.82-1.09) H 01/27/17 06:30 Assessment/Plan Patient had colonoscopy 05/2015 and was noted to have diverticular bleed. Endoclipping was performed and the patient did not re-bleed. He has currently had 2 episodes of BRBPR. Poss hemorrhoidal, diverticular, or related to bowel ischemia. He is a poor candidate for procedures and will manage conservatively as sedation , prep, and procedure all carry more risk than benefit Giving FFP and platelets now. Hgb now >9 Hold TF today Overall prognosis is very poor and the patient is a candidate for hospice care Daughters comment noted-will speak with her later and hopefully convey and clarify the excellent care this patient has received for the past 581 days.
--- NOTE | 2017-01-28 14:13 | PN ---
Physical Exam: SUBJECTIVE: Patient seen and examined. One large melenotic stool overnight. OBJECTIVE: Vital Signs Period Temp Pulse Resp BP Sys/Santiago Pulse Ox Last 24 Hr 97.2 F-99.1 F 107-115 16-20 130-144/58-91 99-99 GENERAL/NEURO: Eyes open. Non-verbal. Does not follow commands. Non-purposeful movement. HEAD: Normal with no signs of trauma. NECK: Tracheostomy site closed, well-healed. EYES: PERRL, extraocular movements intact, sclera anicteric, conjunctiva clear. No ptosis. ENT: Ears normal, nares patent, oropharynx clear without exudates, moist mucous membranes. LUNGS: CTA HEART: Regular rate and rhythm, S1, S2 without murmur, rub or gallop. ABDOMEN: Soft, nontender, nondistended, normoactive bowel sounds, no guarding, no rebound, no hepatosplenomegaly, no masses. PEG tube in situ, skin clean, dry , no sign of infection : Condom cath to castellano bag draining clear urine. EXTREMITIES: 2+ pulses, warm, well-perfused, no edema. Laboratory Results - last 24 hr 01/25/17 01/27/17 01/27/17 06:00 16:00 16:00 WBC 11.0 H RBC 3.13 L Hgb 9.4 L Hct 27.1 L MCV 86.9 MCHC 34.5 RDW 15.3 Plt Count 114 L MPV 9.6 Neutrophils % 70.4 Lymphocytes % 20.6 Monocytes % 5.8 Eosinophils % 2.8 Basophils % 0.4 Sodium Potassium Chloride Carbon Dioxide Anion Gap BUN Creatinine Creat Clearance w eGFR POC Glucometer Random Glucose Lactic Acid 0.828 Calcium Magnesium Total Bilirubin AST ALT Alkaline Phosphatase Total Protein Albumin Blood Type O POSITIVE Antibody Screen Negative Crossmatch See Detail 01/27/17 01/27/17 01/28/17 18:13 21:48 01:05 WBC 9.9 RBC 2.69 L Hgb 8.0 L D Hct 23.6 L MCV 87.7 MCHC 34.0 RDW 15.6 Plt Count 126 L MPV 9.6 Neutrophils % 66.3 Lymphocytes % 23.2 Monocytes % 6.6 Eosinophils % 3.1 Basophils % 0.8 Sodium Potassium Chloride Carbon Dioxide Anion Gap BUN Creatinine Creat Clearance w eGFR POC Glucometer 89 112 Random Glucose Lactic Acid Calcium Magnesium Total Bilirubin AST ALT Alkaline Phosphatase Total Protein Albumin Blood Type Antibody Screen Crossmatch 01/28/17 01/28/17 01/28/17 06:22 07:45 07:45 WBC 10.2 H RBC 2.96 L Hgb 9.0 L D Hct 26.5 L MCV 89.5 MCHC 34.1 RDW 15.9 Plt Count 112 L MPV 8.6 D Neutrophils % 61.6 Lymphocytes % 26.3 Monocytes % 8.0 Eosinophils % 3.6 Basophils % 0.5 Sodium 146 H Potassium 3.4 L Chloride 112 H Carbon Dioxide 22 Anion Gap 12 BUN 12 Creatinine 0.8 Creat Clearance w eGFR > 60 POC Glucometer 123 Random Glucose 101 Lactic Acid Calcium 8.5 Magnesium 2.2 D Total Bilirubin 0.9 D AST 14 L ALT 23 Alkaline Phosphatase 80 Total Protein 6.6 Albumin 3.1 L Blood Type Antibody Screen Crossmatch 01/28/17 01/28/17 07:45 07:45 WBC RBC Hgb Hct MCV MCHC RDW Plt Count MPV Neutrophils % Lymphocytes % Monocytes % Eosinophils % Basophils % Sodium Potassium Chloride Carbon Dioxide Anion Gap BUN Creatinine Creat Clearance w eGFR POC Glucometer Random Glucose Lactic Acid 1.100 Calcium Magnesium Total Bilirubin AST ALT Alkaline Phosphatase Total Protein Albumin Blood Type O POSITIVE Antibody Screen Negative Crossmatch See Detail Active Medications Generic Name Dose Route Start Last Admin Trade Name Freq PRN Reason Stop Dose Admin Acetaminophen 650 mg 05/26/16 14:23 01/21/17 10:26 Tylenol Oral Solution - GT 650 mg Q4H PRN Administration FEVER Amino Acids 30 ml 06/28/16 10:00 01/26/17 12:05 Prostat Sugar-Free Packet - PO 30 ml DAILY KWAKU Administration Amlodipine Besylate 10 mg 12/30/15 10:00 01/28/17 12:22 Norvasc - GT 10 mg DAILY KWAKU Administration Pantoprazole Sodium 80 mg/ 100 mls @ 10 mls/hr 01/25/17 07:45 01/28/17 12:20 Sodium Chloride IVPB Not Given Q10H KWAKU 8 MG/HR Sodium Chloride 1,000 mls @ 100 mls/hr 01/26/17 16:15 01/27/17 18:14 1/2 Normal Saline IV Not Given ASDIR KWAKU Insulin Aspart 1 vial 09/17/16 16:30 01/28/17 06:48 Novolog Vial Sliding Scale - SQ Not Given ACHS [facility] Protocol Insulin Detemir 20 units 09/21/16 13:25 01/27/17 22:34 Levemir Vial SQ Not Given HS KWAKU Lisinopril 40 mg 12/30/15 10:00 01/26/17 11:58 Prinivil GT 40 mg DAILY KWAKU Administration Metoprolol Tartrate 150 mg 11/28/16 10:00 01/26/17 11:59 Lopressor - GT 150 mg BID KWAKU Administration Multi-Ingredient Lotion 1 applic 11/07/16 11:55 Eucerin (Large Jar) - TP BID PRN DRY SKIN Scopolamine HBr 1 patch 12/10/16 11:00 01/27/17 11:45 Transderm-Scop - TD 1 patch Q72H KWAKU Administration Simethicone 40 mg 12/29/16 10:15 01/28/17 12:21 Mylicon Liquid - PO 40 mg BID KWAKU Administration Transfusions 01/25: PRBC 01/26-01/27 overnight: 2 PRBC, 1 platelets, 2 FFP 01/27-01/28 overnight: 2 PRBC, 1 platelets, 2 FFP Imaging 01/25/17 CTAP with IV contrast: (1) No active intraluminal bleed in the stomach or small bowel; limited evaluation of colon for bleeding due to motion and extensive precontrast dense diverticula; small amound of layering density in proximal descending colon could represent venous bleed, no definite arterial bleed; s/p right hemicolectomy; no evidence of bowel obstruction; left UPJ obstruction unchanged; large right inguinal hernia containing a large portion of the urinary bladder; IVC filter ASSESSMENT/PLAN: 75 year old male with PMH of HTN, IDDM, inguinal hernia who presented to the ED with diverticular bleed s/p right hemicolectomy. 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 Now with lower GI bleeding. Acute lower GI bleed started 01/25/17 Extensive diverticulosis h/o diverticular bleed, s/p right hemicolectomy --transfusion history above --hgb 10.2 this morning --continue protonix drip Hypernatremia --Na 146 --continue 1/2 NS @ 100mL Central sleep apnea --seen and evaluated by pulmonary, breathing pauses are due to central apneas secondary to anoxic brain injury; no observed evidence of GRANT --no desaturation --O2 as needed Anoxic brain injury s/p brainstem CVAs --mental status unchanged Respiratory failure secondary to anoxic brain injury, resolved --on room air, nasal cannula PRN --trach removed 09/09/16 --duonebs PRN Hydronephrosis, chronic --renal function stable Right inguinal hernia --seen again on CT today, large portion of urinary bladder contained in the hernia Functional quadriplegia secondary to anoxic brain injury --inability to feed, turn, or toilet independently; requires complete care Hypertension --BP stable --continue to hold lisinopril, metoprolol, amlodipine due to active GI bleed Stage III pressure ulcers buttocks, healed IDDM --hold Levemir while NPO --Novolog sliding scale coverage F/E/N Fluids/Nutrition: hold tube feeds Electrolytes: replete as indicated DVT prophylaxis --SCDs bilaterally --no chemical anticoagulation 2/2 spontaneous gluteal bleed and severe GI bleed Dispo: continues to require inpatient care. Will try to set up family meeting on Sunday with Carole Mayfield, daughter, to discuss goals of care and DNI status. Visit type - Emergency Visit Emergency Visit: Yes ED Registration Date: 06/27/15 Care time: The patient presented to the Emergency Department on the above date and was hospitalized for further evaluation of their emergent condition. - New Patient This patient is new to me today: No - Critical Care Critical Care patient: No
[2017-01-28] MEDS: SODIUM CHLORIDE 0.45% 1,000 ML IV SCH (17:31)
[2017-01-28] MEDS: ACETAMINOPHEN 650 MG/20.3 ML ORAL SOLUTION (CUPS) GT PRN (22:59)
[2017-01-28] MEDS: INSULIN DETEMIR 100 UNITS/ML MDV SQ SCH (23:00)
[2017-01-29] MEDS: PANTOPRAZOLE SODIUM 80 MG in SODIUM CHLORIDE 100 ML IVPB SCH ×3 (03:05→23:02)
[2017-01-29] MEDS: ACETAMINOPHEN 650 MG/20.3 ML ORAL SOLUTION (CUPS) GT PRN (03:56)
[2017-01-29] MEDS: SODIUM CHLORIDE 0.45% 1,000 ML IV SCH ×2 (04:00→18:56)
[2017-01-29] MEDS: INSULIN SLIDING SCALE (NOVOLOG) 1 VIAL SQ SCH ×4 (06:51→23:12)
[2017-01-29 07:41] LABS: BASOPHIL 0.6 % (0-2.0); EOSINOPHIL 4.4 % (0-4.5); MCH 30.1 pg (25.7-33.7); MCHC 34.3 g/dl (32.0-35.9); MEAN CELL VOLUME 87.7 fl (80-96); MEAN PLT VOLUME 9.2 fl (7.5-11.1); NEUTROPHILS 65.2 % (42.8-82.8); PLATELET COUNT 166 K/MM3 (134-434); RDW 15.7 % (11.9-15.9); WHITE BLOOD COUNT 9.9 K/mm3 (4.0-10.0)
[2017-01-29 08:04] LABS: ALBUMIN 3.4 g/dl (3.4-5.0); ANION GAP 11 (8-16); CALCIUM 8.8 mg/dL (8.5-10.1); CO2 23 mmol/L (21-32); CREATININE 0.8 mg/dL (0.7-1.3); GLUCOSE,RANDOM 104 mg/dL (74-106); SGOT/AST 19 U/L (15-37); SGPT/ALT 28 U/L (12-78)
[2017-01-29 08:07] LABS: ALK PHOS 79 U/L (45-117); BILIRUBIN,TOTAL 0.8 mg/dL (0.2-1.0); TOT PROT 7.1 g/dl (6.4-8.2)
[2017-01-29] MEDS: MULTIVIT-MINERALS 236 ML ML GT SCH (10:50)
[2017-01-29] MEDS: amLODIPine BESYLATE 10 MG TABLET (FP) GT SCH (10:50)
[2017-01-29] MEDS: SIMETHICONE 40 MG/0.6 ML BOTTLE PO SCH ×2 (10:50→23:01)
[2017-01-29] MEDS: POTASSIUM CHLORIDE ORAL LIQUID 20 MEQ/15 ML GT SCH (23:01)
[2017-01-29] MEDS: INSULIN DETEMIR 100 UNITS/ML MDV SQ SCH (23:02)
--- NOTE | 2017-01-30 | PN ---
Physical Exam: SUBJECTIVE: Patient seen and examined OBJECTIVE: Vital Signs Period Temp Pulse Resp BP Sys/Santiago Pulse Ox Last 24 Hr 98.2 F-99.6 F 95-111 18-20 137-154/69-94 100 GENERAL/NEURO: Eyes open. Non-verbal. Does not follow commands. Non-purposeful movement. HEAD: Normal with no signs of trauma. NECK: Tracheostomy site closed, well-healed. EYES: PERRL, extraocular movements intact, sclera anicteric, conjunctiva clear. No ptosis. ENT: Ears normal, nares patent, oropharynx clear without exudates, moist mucous membranes. LUNGS: CTA HEART: Regular rate and rhythm, S1, S2 without murmur, rub or gallop. ABDOMEN: Soft, nontender, nondistended, normoactive bowel sounds, no guarding, no rebound, no hepatosplenomegaly, no masses. PEG tube in situ, skin clean, dry , no sign of infection : Condom cath to castellano bag draining clear urine. EXTREMITIES: 2+ pulses, warm, well-perfused, no edema. Laboratory Results - last 24 hr 01/25/17 01/28/17 01/29/17 06:00 07:45 06:00 WBC 9.9 RBC 3.86 L D Hgb 11.6 L D Hct 33.8 L D MCV 87.7 MCHC 34.3 RDW 15.7 Plt Count 166 D MPV 9.2 Neutrophils % 65.2 Lymphocytes % 22.2 Monocytes % 7.6 Eosinophils % 4.4 Basophils % 0.6 Sodium Potassium Chloride Carbon Dioxide Anion Gap BUN Creatinine Creat Clearance w eGFR POC Glucometer Random Glucose Calcium Magnesium Total Bilirubin AST ALT Alkaline Phosphatase Total Protein Albumin Blood Type O POSITIVE Antibody Screen Negative Crossmatch See Detail See Detail 01/29/17 01/29/17 01/29/17 06:00 06:49 11:01 WBC RBC Hgb Hct MCV MCHC RDW Plt Count MPV Neutrophils % Lymphocytes % Monocytes % Eosinophils % Basophils % Sodium 145 Potassium 3.3 L Chloride 111 H Carbon Dioxide 23 Anion Gap 11 BUN 8 D Creatinine 0.8 Creat Clearance w eGFR > 60 POC Glucometer 118 112 Random Glucose 104 Calcium 8.8 Magnesium 2.0 Total Bilirubin 0.8 AST 19 D ALT 28 D Alkaline Phosphatase 79 Total Protein 7.1 Albumin 3.4 Blood Type Antibody Screen Crossmatch 01/29/17 01/29/17 18:52 23:04 WBC RBC Hgb Hct MCV MCHC RDW Plt Count MPV Neutrophils % Lymphocytes % Monocytes % Eosinophils % Basophils % Sodium Potassium Chloride Carbon Dioxide Anion Gap BUN Creatinine Creat Clearance w eGFR POC Glucometer 103 88 Random Glucose Calcium Magnesium Total Bilirubin AST ALT Alkaline Phosphatase Total Protein Albumin Blood Type Antibody Screen Crossmatch Active Medications Generic Name Dose Route Start Last Admin Trade Name Freq PRN Reason Stop Dose Admin Acetaminophen 650 mg 05/26/16 14:23 01/29/17 03:56 Tylenol Oral Solution - GT 650 mg Q4H PRN Administration FEVER Amino Acids 30 ml 06/28/16 10:00 01/26/17 12:05 Prostat Sugar-Free Packet - PO 30 ml DAILY KWAKU Administration Amlodipine Besylate 10 mg 12/30/15 10:00 01/29/17 10:50 Norvasc - GT 10 mg DAILY KWAKU Administration Pantoprazole Sodium 80 mg/ 100 mls @ 10 mls/hr 01/25/17 07:45 01/29/17 23:02 Sodium Chloride IVPB Not Given Q10H KWAKU 8 MG/HR Sodium Chloride 1,000 mls @ 100 mls/hr 01/26/17 16:15 01/29/17 18:56 1/2 Normal Saline IV 100 mls/hr ASDIR KWAKU Administration Insulin Aspart 1 vial 09/17/16 16:30 01/29/17 23:12 Novolog Vial Sliding Scale - SQ Not Given ACHS [facility] Protocol Insulin Detemir 20 units 09/21/16 13:25 01/29/17 23:02 Levemir Vial SQ Not Given HS KWAKU Lisinopril 40 mg 12/30/15 10:00 01/26/17 11:58 Prinivil GT 40 mg DAILY KWAKU Administration Metoprolol Tartrate 150 mg 11/28/16 10:00 01/26/17 11:59 Lopressor - GT 150 mg BID KWAKU Administration Multi-Ingredient Lotion 1 applic 11/07/16 11:55 Eucerin (Large Jar) - TP BID PRN DRY SKIN Potassium Chloride 40 meq 01/29/17 18:30 01/29/17 23:01 Potassium Chloride Oral Liquid GT 01/30/17 00:31 40 meq Q6H KWAKU Administration Scopolamine HBr 1 patch 12/10/16 11:00 01/27/17 11:45 Transderm-Scop - TD 1 patch Q72H [facility]AKU Administration Simethicone 40 mg 12/29/16 10:15 01/29/17 23:01 Mylicon Liquid - PO 40 mg BID KWAKU Administration ASSESSMENT/PLAN: Transfusions 01/25: PRBC 01/26-01/27 overnight: 2 PRBC, 1 platelets, 2 FFP 01/27-01/28 overnight: 2 PRBC, 1 platelets, 2 FFP Imaging 01/25/17 CTAP with IV contrast: (1) No active intraluminal bleed in the stomach or small bowel; limited evaluation of colon for bleeding due to motion and extensive precontrast dense diverticula; small amound of layering density in proximal descending colon could represent venous bleed, no definite arterial bleed; s/p right hemicolectomy; no evidence of bowel obstruction; left UPJ obstruction unchanged; large right inguinal hernia containing a large portion of the urinary bladder; IVC filter ASSESSMENT/PLAN: 75 year old male with PMH of HTN, IDDM, inguinal hernia who presented to the ED with diverticular bleed s/p right hemicolectomy. 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 Now with lower GI bleeding. Acute lower GI bleed started 01/25/17 Extensive diverticulosis h/o diverticular bleed, s/p right hemicolectomy --transfusion history above --hgb 11.6 this morning --continue protonix drip Hypernatremia, resolved --Na 145 --continue 1/2 NS @ 100mL Central sleep apnea --seen and evaluated by pulmonary, breathing pauses are due to central apneas secondary to anoxic brain injury; no observed evidence of GRANT --no desaturation --O2 as needed Anoxic brain injury s/p brainstem CVAs --mental status unchanged Respiratory failure secondary to anoxic brain injury, resolved --on room air, nasal cannula PRN --trach removed 09/09/16 --duonebs PRN Hydronephrosis, chronic --renal function stable Right inguinal hernia --seen again on CT today, large portion of urinary bladder contained in the hernia Functional quadriplegia secondary to anoxic brain injury --inability to feed, turn, or toilet independently; requires complete care Hypertension --BP remains stable despite bleeding losses --continue to hold lisinopril, metoprolol, amlodipine Stage III pressure ulcers buttocks, healed IDDM --hold Levemir while NPO --Novolog sliding scale coverage F/E/N Fluids/Nutrition: hold tube feeds due to active GI bleeding Electrolytes: replete as indicated DVT prophylaxis --SCDs bilaterally --no chemical anticoagulation 2/2 h/o bleeding Dispo: continues to require inpatient care. Family meeting tentatively scheduled for Sunday at 1:00pm DNR only. Visit type - Emergency Visit Emergency Visit: Yes ED Registration Date: 06/27/15 Care time: The patient presented to the Emergency Department on the above date and was hospitalized for further evaluation of their emergent condition. - New Patient This patient is new to me today: No - Critical Care Critical Care patient: No
[2017-01-30] MEDS: POTASSIUM CHLORIDE ORAL LIQUID 20 MEQ/15 ML GT SCH (07:16)
[2017-01-30] MEDS: INSULIN SLIDING SCALE (NOVOLOG) 1 VIAL SQ SCH ×4 (07:17→22:07)
[2017-01-30] MEDS: PANTOPRAZOLE SODIUM 80 MG in SODIUM CHLORIDE 100 ML IVPB SCH ×2 (07:17→18:00)
[2017-01-30 08:47] LABS: BASOPHIL 0.6 % (0-2.0); MCH 30.1 pg (25.7-33.7); MCHC 34.1 g/dl (32.0-35.9); MEAN CELL VOLUME 88.2 fl (80-96); MEAN PLT VOLUME 8.5 fl (7.5-11.1); NEUTROPHILS 66.4 % (42.8-82.8); PLATELET COUNT 178 K/MM3 (134-434); RDW 15.6 % (11.9-15.9); WHITE BLOOD COUNT 8.3 K/mm3 (4.0-10.0)
[2017-01-30 09:06] LABS: ALBUMIN 3.5 g/dl (3.4-5.0); ALK PHOS 76 U/L (45-117); ANION GAP 10 (8-16); BILIRUBIN,TOTAL 0.7 mg/dL (0.2-1.0); CALCIUM 9.3 mg/dL (8.5-10.1); CO2 26 mmol/L (21-32); CREATININE 0.7 mg/dL (0.7-1.3); GLUCOSE,RANDOM 84 mg/dL (74-106); SGOT/AST 16 U/L (15-37); SGPT/ALT 24 U/L (12-78)
[2017-01-30] MEDS: MULTIVIT-MINERALS 236 ML ML GT SCH (10:12)
[2017-01-30] MEDS: SIMETHICONE 40 MG/0.6 ML BOTTLE PO SCH (10:12)
[2017-01-30] MEDS: amLODIPine BESYLATE 10 MG TABLET (FP) GT SCH (10:12)
[2017-01-30] MEDS: ACETAMINOPHEN 650 MG/20.3 ML ORAL SOLUTION (CUPS) GT PRN (10:13)
[2017-01-30] MEDS: SCOPOLAMINE HYDROBROMIDE 1 PATCH PATCH.TD72 TD SCH (10:13)
[2017-01-30] MEDS: DEXTROSE 5%-0.45% SALINE 1,000 ML IV SCH ×2 (11:08→21:38)
--- NOTE | 2017-01-30 11:16 | PN ---
Physical Exam: SUBJECTIVE: Patient seen and examined. Non verbal at baseline. OBJECTIVE: CBC 9.4/27.6, platelets 178 - will repeat CBC today. Meeting held at palliative care office with Maggi Mayfield daughter Carole, step sister Donna Jones (via conference call), Rev. Jung Prakash, Palliative care RN Kirsten Rodriguez and fiction writer. The goal of the meeting was to discuss present treatment and to further explore family's wishes on future treatment options which includes hospice and comfort care. During the meeting, the acute GI bleeding episodes that began on 2016 until present were discussed as well as the various transfusions (prbc, platelets and FFP) that were required to stabilize Maggi. We also discussed the Building Analyst/Supervisor findings and recommendations that include risks vs. benefits in pursing further surgical intervention as patient is a poor candidate for procedures. Daughter Carole and chente Thompson to have a private family discussion to discuss goals of care further, and will decide on further treatment options and will advise us of same. Palliative care phone number provided to family. Patient currently on a protonix drip at this time, D5 1/2NS @100cc/hr infusing, tube feedings on HOLD secondary to acute GI bleed and allowing bowel rest. Asked RD to follow pt for further recommendations. Vital Signs Period Temp Pulse Resp BP Sys/Santiago Pulse Ox Last 24 Hr 97.5 F-99.2 F 94-111 20-20 138-150/69-88 99-100 GENERAL: Patient is lethargic, non verbal at baseline HEAD: Normal with no signs of trauma. EYES: PERRL, extraocular movements intact, sclera anicteric, conjunctiva clear. No ptosis. ENT: Ears normal, nares patent, oropharynx clear without exudates, moist mucous membranes. NECK: Trachea midline, full range of motion, supple. LUNGS: Breath sounds equal, clear to auscultation bilaterally, no wheezes, no crackles, no accessory muscle use. HEART: Regular rate and rhythm ABDOMEN: PEG tube, abdomen soft to light palpation, no facial grimacing on palpation of abdomen, non distended, no signs of infection EXTREMITIES: 2+ pulses, warm, well-perfused, no edema. NEUROLOGICAL: Non verbal, bed bound : condom cath attached to castellano bag draining yellow clear urine PSYCH:lethargic, non verbal SKIN: Healed stage 3 on buttocks Laboratory Results - last 24 hr 01/25/17 01/28/17 01/29/17 06:00 07:45 11:01 WBC RBC Hgb Hct MCV MCHC RDW Plt Count MPV Neutrophils % Lymphocytes % Monocytes % Eosinophils % Basophils % Sodium Potassium Chloride Carbon Dioxide Anion Gap BUN Creatinine Creat Clearance w eGFR POC Glucometer 112 Random Glucose Calcium Total Bilirubin AST ALT Alkaline Phosphatase Total Protein Albumin Blood Type O POSITIVE Antibody Screen Negative Crossmatch See Detail See Detail 01/29/17 01/29/17 01/30/17 18:52 23:04 07:18 WBC RBC Hgb Hct MCV MCHC RDW Plt Count MPV Neutrophils % Lymphocytes % Monocytes % Eosinophils % Basophils % Sodium Potassium Chloride Carbon Dioxide Anion Gap BUN Creatinine Creat Clearance w eGFR POC Glucometer 103 88 94 Random Glucose Calcium Total Bilirubin AST ALT Alkaline Phosphatase Total Protein Albumin Blood Type Antibody Screen Crossmatch 01/30/17 01/30/17 08:15 08:15 WBC 8.3 RBC 3.13 L Hgb 9.4 L D Hct 27.6 L D MCV 88.2 MCHC 34.1 RDW 15.6 Plt Count 178 MPV 8.5 Neutrophils % 66.4 Lymphocytes % 22.3 Monocytes % 5.7 Eosinophils % 5.0 H Basophils % 0.6 Sodium 140 Potassium 3.8 Chloride 104 Carbon Dioxide 26 Anion Gap 10 BUN 4 L D Creatinine 0.7 Creat Clearance w eGFR > 60 POC Glucometer Random Glucose 84 Calcium 9.3 Total Bilirubin 0.7 AST 16 ALT 24 Alkaline Phosphatase 76 Total Protein 7.0 Albumin 3.5 Blood Type Antibody Screen Crossmatch Active Medications Generic Name Dose Route Start Last Admin Trade Name Ginette PRN Reason Stop Dose Admin Acetaminophen 650 mg 05/26/16 14:23 01/30/17 10:13 Tylenol Oral Solution - GT 650 mg Q4H PRN Administration FEVER Amino Acids 30 ml 06/28/16 10:00 01/26/17 12:05 Prostat Sugar-Free Packet - PO 30 ml DAILY KWAKU Administration Amlodipine Besylate 10 mg 12/30/15 10:00 01/30/17 10:12 Norvasc - GT 10 mg DAILY KWAKU Administration Pantoprazole Sodium 80 mg/ 100 mls @ 10 mls/hr 01/25/17 07:45 01/30/17 07:17 Sodium Chloride IVPB 10 mls/hr Q10H KWAKU Administration 8 MG/HR Dextrose/Sodium Chloride 1,000 mls @ 100 mls/hr 01/30/17 10:00 01/30/17 11:08 D5-1/2ns - IV 100 mls/hr ASDIR KWAKU Administration Insulin Aspart 1 vial 09/17/16 16:30 01/30/17 07:17 Novolog Vial Sliding Scale - SQ Not Given ACHS [facility] Protocol Insulin Detemir 20 units 09/21/16 13:25 01/29/17 23:02 Levemir Vial SQ Not Given HS KWAKU Lisinopril 40 mg 12/30/15 10:00 01/26/17 11:58 Prinivil GT 40 mg DAILY KWAKU Administration Metoprolol Tartrate 150 mg 11/28/16 10:00 01/26/17 11:59 Lopressor - GT 150 mg BID KWAKU Administration Multi-Ingredient Lotion 1 applic 11/07/16 11:55 Eucerin (Large Jar) - TP BID PRN DRY SKIN Scopolamine HBr 1 patch 12/10/16 11:00 01/30/17 10:13 Transderm-Scop - TD 1 patch Q72H KWAKU Administration Simethicone 40 mg 12/29/16 10:15 01/30/17 10:12 Mylicon Liquid - PO 40 mg BID KWAKU Administration ASSESSMENT/PLAN: Patient is a 76 year old male with a past medical history of IDDM, HTN and inguinal hernia. He presented to the emergency room on 06/27/2015 with a diverticular bleed s/p right hemicolectomy. His hospitalization was further complicated with a CVA with anoxic brain injury. He is s/p trach secondary to respiratory failure. On 01/25/2017 patient developed an acute episode of GI bleeding. He required numerous blood transfusions, platelets and FFP infusions. Imagin01/25/17 CTAP: No active intraluminal bleed in the stomach or small bowel; limited eval of colon for bleeding due to motion and extensive precontrast dense diverticula, small amound of layering density in proximal descending colon can represent venous bleed, s/p right hemicolectomy; no evidence of bowel obstruction; left UPJ obstruction unchanged; large right inguinal hernia containing a large portion of the urinary bladder 01/26/2017 Chest Xray - elevated diaphragm, with atelectatis, LV prominence w/o evidence of heart failure or effusion seen. GI: GI Bleed - acute/began 01/25/2017 with various episodes following thru 01/28 Assessment/Plan: Patient with extensive diverticulosis, with a hisstory of diverticular bleed s/p right hemicolectomy 2015 Required multiple blood transfusion, platelet transfusions and FFPs since 2016 Hmg/hct dropping slightly today, will repeat CBC and monitor No active signs of bleeding during exam Continue Protonix drip, continue IVF of D5 1/2 NS @ 100cc/hr, hold tube feeds to allow bowel rest RD recommendations appreciated Awaiting family to discuss further treatment options vs comfort care. Neurology: Anoxic brain injury s/p brainstem CVA - at baseline Functional quadriplegia secondary to anoxic brain injury Assessment/Plan: Requires total care, He is unable to participate in any activities of daily living -requires 24 hour care Pulmonary: Respiratory failure secondary to anoxic brain injury - resolved - DNI status to be discussed with family once family discusses treatment options. Cardiology: Hypertension - chronic Assessment/Plan: BP stable, monitor. All GT meds on hold secondary to bleeding. If hypertensive, will consider Lopressor IV. Endocrine: Diabetes - chronic Assessment/Plan: Tight glycemic control, Capillary glucose ac/hs Integumentary: Stage III pressure ulcers buttocks - healed - high risk for skin breakdown, turn and pos q2/air mattress, on Prostat Hematology: Anemia - acute Assessment/Plan: secondary to acute GI blood loss - transfuse as needed, family discussion in progress as to goals of care Thrombocytopenia @178 monitor in the setting of GI bleed F.E.N. NPO - HOLD g tube feeds secondary to acute GI bleed Functional quadraplegia Prophylaxis: DVT: SCDs - both legs. No AC: contraindicated secondary to GI bleed GI Regimen: on Protonix drip He is bed bound and a total care Code Status: Patient continues to require inpatient care. He is a DNR only. DNI status to be addressed likely on once family decides goals of care. Visit type - Emergency Visit Emergency Visit: Yes ED Registration Date: 06/27/15 Care time: The patient presented to the Emergency Department on the above date and was hospitalized for further evaluation of their emergent condition. - New Patient This patient is new to me today: No - Critical Care Critical Care patient: No - Discharge Referral Referred to [facility] No
[2017-01-30 17:28] LABS: BASOPHIL 0.5 % (0-2.0); EOSINOPHIL 5.4 % (0-4.5); MCH 30.1 pg (25.7-33.7); MCHC 34.1 g/dl (32.0-35.9); MEAN CELL VOLUME 88.3 fl (80-96); MEAN PLT VOLUME 8.7 fl (7.5-11.1); PLATELET COUNT 206 K/MM3 (134-434); RDW 15.3 % (11.9-15.9); WHITE BLOOD COUNT 7.4 K/mm3 (4.0-10.0)
[2017-01-30] MEDS: INSULIN DETEMIR 100 UNITS/ML MDV SQ SCH (22:07)
[2017-01-31] MEDS: PANTOPRAZOLE SODIUM 80 MG in SODIUM CHLORIDE 100 ML IVPB SCH ×2 (05:15→13:55)
[2017-01-31] MEDS: INSULIN SLIDING SCALE (NOVOLOG) 1 VIAL SQ SCH ×3 (06:17→17:15)
[2017-01-31] MEDS: DEXTROSE 5%-0.45% SALINE 1,000 ML IV SCH ×2 (06:57→15:40)
[2017-01-31 08:37] LABS: BASOPHIL 0.4 % (0-2.0); EOSINOPHIL 4.5 % (0-4.5); MCH 30.4 pg (25.7-33.7); MCHC 34.6 g/dl (32.0-35.9); MEAN CELL VOLUME 87.9 fl (80-96); MEAN PLT VOLUME 8.5 fl (7.5-11.1); NEUTROPHILS 73.9 % (42.8-82.8); PLATELET COUNT 192 K/MM3 (134-434); RDW 15.5 % (11.9-15.9); WHITE BLOOD COUNT 7.8 K/mm3 (4.0-10.0)
[2017-01-31 09:09] LABS: ALBUMIN 3.5 g/dl (3.4-5.0); ANION GAP 11 (8-16); CO2 24 mmol/L (21-32); GLUCOSE,RANDOM 120 mg/dL (74-106)
[2017-01-31 09:14] LABS: ALK PHOS 80 U/L (45-117); BILIRUBIN,TOTAL 0.7 mg/dL (0.2-1.0); CREATININE 0.7 mg/dL (0.7-1.3); SGOT/AST 15 U/L (15-37); SGPT/ALT 25 U/L (12-78); TOT PROT 7.4 g/dl (6.4-8.2)
--- NOTE | 2017-01-31 16:10 | PN ---
Physical Exam: SUBJECTIVE: Patient seen and examined. Last melanotic stool 24 hours ago. OBJECTIVE: Vital Signs Period Temp Pulse Resp BP Sys/Santiago Pulse Ox Last 24 Hr 97.4 F-98.3 F 82-98 20-20 133-157/83-91 99-99 GENERAL/NEURO: Eyes open. Non-verbal. Does not follow commands. Non-purposeful movement. HEAD: Normal with no signs of trauma. NECK: Tracheostomy site closed, well-healed. EYES: PERRL, extraocular movements intact, sclera anicteric, conjunctiva clear. No ptosis. ENT: Ears normal, nares patent, oropharynx clear without exudates, moist mucous membranes. LUNGS: CTA HEART: Regular rate and rhythm, S1, S2 without murmur, rub or gallop. ABDOMEN: Soft, nontender, nondistended, normoactive bowel sounds, no guarding, no rebound, no hepatosplenomegaly, no masses. PEG tube in situ, skin clean, dry , no sign of infection : Condom cath to castellano bag draining clear urine. EXTREMITIES: 2+ pulses, warm, well-perfused, no edema. Laboratory Results - last 24 hr 01/25/17 01/28/17 01/30/17 06:00 07:45 16:30 WBC 7.4 RBC 3.15 L Hgb 9.5 L Hct 27.8 L MCV 88.3 MCHC 34.1 RDW 15.3 Plt Count 206 MPV 8.7 Neutrophils % 64.0 Lymphocytes % 23.6 Monocytes % 6.5 Eosinophils % 5.4 H Basophils % 0.5 Sodium Potassium Chloride Carbon Dioxide Anion Gap BUN Creatinine Creat Clearance w eGFR POC Glucometer Random Glucose Calcium Total Bilirubin AST ALT Alkaline Phosphatase Total Protein Albumin Blood Type O POSITIVE O POSITIVE Antibody Screen Negative Negative Crossmatch See Detail See Detail 01/30/17 01/30/17 01/31/17 16:41 21:16 06:18 WBC RBC Hgb Hct MCV MCHC RDW Plt Count MPV Neutrophils % Lymphocytes % Monocytes % Eosinophils % Basophils % Sodium Potassium Chloride Carbon Dioxide Anion Gap BUN Creatinine Creat Clearance w eGFR POC Glucometer 138 129 132 Random Glucose Calcium Total Bilirubin AST ALT Alkaline Phosphatase Total Protein Albumin Blood Type Antibody Screen Crossmatch 01/31/17 01/31/17 01/31/17 08:00 08:00 11:58 WBC 7.8 RBC 3.26 L Hgb 9.9 L Hct 28.6 L MCV 87.9 MCHC 34.6 RDW 15.5 Plt Count 192 MPV 8.5 Neutrophils % 73.9 Lymphocytes % 16.0 D Monocytes % 5.2 Eosinophils % 4.5 Basophils % 0.4 Sodium 139 Potassium 3.1 L Chloride 104 Carbon Dioxide 24 Anion Gap 11 BUN 4 L Creatinine 0.7 Creat Clearance w eGFR > 60 POC Glucometer 146 Random Glucose 120 H D Calcium 9.0 Total Bilirubin 0.7 AST 15 ALT 25 Alkaline Phosphatase 80 Total Protein 7.4 Albumin 3.5 Blood Type Antibody Screen Crossmatch Active Medications Generic Name Dose Route Start Last Admin Trade Name Freq PRN Reason Stop Dose Admin Amino Acids 30 ml 06/28/16 10:00 01/26/17 12:05 Prostat Sugar-Free Packet - PO 30 ml DAILY KWAKU Administration Amlodipine Besylate 10 mg 12/30/15 10:00 01/30/17 10:12 Norvasc - GT 10 mg DAILY KWAKU Administration Pantoprazole Sodium 80 mg/ 100 mls @ 10 mls/hr 01/25/17 07:45 01/31/17 05:15 Sodium Chloride IVPB 10 mls/hr Q10H KWAKU Administration 8 MG/HR Dextrose/Sodium Chloride 1,000 mls @ 100 mls/hr 01/30/17 10:00 01/31/17 15:40 D5-1/2ns - IV 100 mls/hr ASDIR KWAKU Administration Insulin Aspart 1 vial 09/17/16 16:30 01/31/17 11:59 Novolog Vial Sliding Scale - SQ Not Given ACHS [facility] Protocol Insulin Detemir 20 units 09/21/16 13:25 01/30/17 22:07 Levemir Vial SQ Not Given HS [facility] Lisinopril 40 mg 12/30/15 10:00 01/26/17 11:58 Prinivil GT 40 mg DAILY KWAKU Administration Metoprolol Tartrate 150 mg 11/28/16 10:00 01/26/17 11:59 Lopressor - GT 150 mg BID KWAKU Administration Multi-Ingredient Lotion 1 applic 11/07/16 11:55 Eucerin (Large Jar) - TP BID PRN DRY SKIN Potassium Chloride 40 meq 01/31/17 15:15 Potassium Chloride Oral Liquid PO 02/01/17 03:16 Q6H KWAKU Scopolamine HBr 1 patch 12/10/16 11:00 01/30/17 10:13 Transderm-Scop - TD 1 patch Q72H KWAKU Administration Transfusions 01/25: PRBC 01/26-01/27 overnight: 2 PRBC, 1 platelets, 2 FFP 01/27-01/28 overnight: 2 PRBC, 1 platelets, 2 FFP Imaging 01/25/17 CTAP with IV contrast: (1) No active intraluminal bleed in the stomach or small bowel; limited evaluation of colon for bleeding due to motion and extensive precontrast dense diverticula; small amound of layering density in proximal descending colon could represent venous bleed, no definite arterial bleed; s/p right hemicolectomy; no evidence of bowel obstruction; left UPJ obstruction unchanged; large right inguinal hernia containing a large portion of the urinary bladder; IVC filter ASSESSMENT/PLAN: 75 year old male with PMH of HTN, IDDM, inguinal hernia who presented to the ED with diverticular bleed s/p right hemicolectomy. 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 Now with lower GI bleeding. Acute lower GI bleed started 01/25/17 Extensive diverticulosis h/o diverticular bleed, s/p right hemicolectomy --transfusion history above --h/h stable, no bleeding episodes for 24 hours --continue protonix drip Hypernatremia, resolved Central sleep apnea --seen and evaluated by pulmonary, breathing pauses are due to central apneas secondary to anoxic brain injury; no observed evidence of GRANT --no desaturation --O2 as needed Anoxic brain injury s/p brainstem CVAs --mental status unchanged Respiratory failure secondary to anoxic brain injury, resolved --on room air, nasal cannula PRN --trach removed 09/09/16 --duonebs PRN Hydronephrosis, chronic --renal function stable Right inguinal hernia --seen again on CT today, large portion of urinary bladder contained in the hernia Functional quadriplegia secondary to anoxic brain injury --inability to feed, turn, or toilet independently; requires complete care Hypertension --BP remains stable despite bleeding losses --continue to hold lisinopril, metoprolol, amlodipine Stage III pressure ulcers buttocks, healed IDDM --hold Levemir while NPO --Novolog sliding scale coverage F/E/N Fluids/Nutrition: hold tube feeds due to active GI bleeding; D51/2NS@100mL/hr Electrolytes: replete as indicated DVT prophylaxis --SCDs bilaterally --no chemical anticoagulation 2/2 h/o bleeding Dispo: continues to require inpatient care. Family meeting held on 01/30. DNR only. Visit type - Emergency Visit Emergency Visit: Yes ED Registration Date: 06/27/15 Care time: The patient presented to the Emergency Department on the above date and was hospitalized for further evaluation of their emergent condition. - New Patient This patient is new to me today: No - Critical Care Critical Care patient: No
[2017-01-31] MEDS: POTASSIUM CHLORIDE ORAL LIQUID 20 MEQ/15 ML PO SCH (17:55)
[2017-02-01] MEDS: INSULIN SLIDING SCALE (NOVOLOG) 1 VIAL SQ SCH ×5 (00:11→22:36)
[2017-02-01] MEDS: INSULIN DETEMIR 100 UNITS/ML MDV SQ SCH ×2 (00:12→22:33)
[2017-02-01] MEDS: PANTOPRAZOLE SODIUM 80 MG in SODIUM CHLORIDE 100 ML IVPB SCH ×6 (00:13→23:47)
[2017-02-01] MEDS: DEXTROSE 5%-0.45% SALINE 1,000 ML IV SCH ×4 (03:22→23:47)
[2017-02-01] MEDS: POTASSIUM CHLORIDE ORAL LIQUID 20 MEQ/15 ML PO SCH ×2 (06:48)
[2017-02-01 08:31] LABS: BASOPHIL 0.2 % (0-2.0); EOSINOPHIL 6.7 % (0-4.5); MCH 30.3 pg (25.7-33.7); MCHC 34.3 g/dl (32.0-35.9); MEAN CELL VOLUME 88.4 fl (80-96); MEAN PLT VOLUME 8.4 fl (7.5-11.1); NEUTROPHILS 70.7 % (42.8-82.8); PLATELET COUNT 203 K/MM3 (134-434); RDW 15.9 % (11.9-15.9); WHITE BLOOD COUNT 7.5 K/mm3 (4.0-10.0)
[2017-02-01 09:14] LABS: ALBUMIN 3.4 g/dl (3.4-5.0); ALK PHOS 79 U/L (45-117); ANION GAP 11 (8-16); BILIRUBIN,TOTAL 0.7 mg/dL (0.2-1.0); CALCIUM 9.3 mg/dL (8.5-10.1); CO2 24 mmol/L (21-32); CREATININE 0.8 mg/dL (0.7-1.3); GLUCOSE,RANDOM 113 mg/dL (74-106); MAGNESIUM 1.5 mg/dL (1.8-2.4); SGOT/AST 12 U/L (15-37); SGPT/ALT 20 U/L (12-78); TOT PROT 7.1 g/dl (6.4-8.2)
--- NOTE | 2017-02-01 13:11 | PN ---
Physical Exam: SUBJECTIVE: Patient seen and examined at bedside. Staff reports one small melanotic stool overnight, nothing so far today. OBJECTIVE: Vital Signs Period Temp Pulse Resp BP Sys/Santiago Pulse Ox Last 24 Hr 67.6 F-98.7 F 89-98 19-20 135-148/70-95 98-98 GENERAL/NEURO: Eyes open. Non-verbal. Does not follow commands. Non-purposeful movement. HEAD: Normal with no signs of trauma. NECK: Tracheostomy site closed, well-healed. EYES: PERRL, extraocular movements intact, sclera anicteric, conjunctiva clear. No ptosis. ENT: Ears normal, nares patent, oropharynx clear without exudates, moist mucous membranes. LUNGS: CTA HEART: Regular rate and rhythm, S1, S2 without murmur, rub or gallop. ABDOMEN: Soft, nontender, nondistended, normoactive bowel sounds, no guarding, no rebound, no hepatosplenomegaly, no masses. PEG tube in situ, skin clean, dry , no sign of infection : Condom cath to castellano bag draining clear urine. EXTREMITIES: 2+ pulses, warm, well-perfused, no edema. Laboratory Results - last 24 hr 01/28/17 01/31/17 02/01/17 07:45 17:13 00:08 WBC RBC Hgb Hct MCV MCHC RDW Plt Count MPV Neutrophils % Lymphocytes % Monocytes % Eosinophils % Basophils % Sodium Potassium Chloride Carbon Dioxide Anion Gap BUN Creatinine Creat Clearance w eGFR POC Glucometer 139 127 Random Glucose Calcium Magnesium Total Bilirubin AST ALT Alkaline Phosphatase Total Protein Albumin Blood Type O POSITIVE Antibody Screen Negative Crossmatch See Detail 02/01/17 02/01/17 02/01/17 06:46 08:00 08:00 WBC 7.5 RBC 3.28 L Hgb 9.9 L Hct 29.0 L MCV 88.4 MCHC 34.3 RDW 15.9 Plt Count 203 MPV 8.4 Neutrophils % 70.7 Lymphocytes % 15.9 Monocytes % 6.5 Eosinophils % 6.7 H Basophils % 0.2 Sodium 141 Potassium 3.6 Chloride 106 Carbon Dioxide 24 Anion Gap 11 BUN 1 L* D Creatinine 0.8 Creat Clearance w eGFR > 60 POC Glucometer 121 Random Glucose 113 H Calcium 9.3 Magnesium 1.5 L D Total Bilirubin 0.7 AST 12 L ALT 20 Alkaline Phosphatase 79 Total Protein 7.1 Albumin 3.4 Blood Type Antibody Screen Crossmatch 02/01/17 11:11 WBC RBC Hgb Hct MCV MCHC RDW Plt Count MPV Neutrophils % Lymphocytes % Monocytes % Eosinophils % Basophils % Sodium Potassium Chloride Carbon Dioxide Anion Gap BUN Creatinine Creat Clearance w eGFR POC Glucometer 114 Random Glucose Calcium Magnesium Total Bilirubin AST ALT Alkaline Phosphatase Total Protein Albumin Blood Type Antibody Screen Crossmatch Active Medications Generic Name Dose Route Start Last Admin Trade Name Freq PRN Reason Stop Dose Admin Amino Acids 30 ml 06/28/16 10:00 01/26/17 12:05 Prostat Sugar-Free Packet - PO 30 ml DAILY KWAKU Administration Amlodipine Besylate 10 mg 12/30/15 10:00 01/30/17 10:12 Norvasc - GT 10 mg DAILY KWAKU Administration Pantoprazole Sodium 80 mg/ 100 mls @ 10 mls/hr 01/25/17 07:45 02/01/17 11:14 Sodium Chloride IVPB Not Given Q10H KWAKU 8 MG/HR Dextrose/Sodium Chloride 1,000 mls @ 100 mls/hr 01/30/17 10:00 02/01/17 11:14 D5-1/2ns - IV Not Given ASDIR KWAKU Insulin Aspart 1 vial 09/17/16 16:30 02/01/17 11:14 Novolog Vial Sliding Scale - SQ Not Given ACHS [facility] Protocol Insulin Detemir 20 units 09/21/16 13:25 02/01/17 00:12 Levemir Vial SQ 20 units HS KWAKU Administration Lisinopril 40 mg 12/30/15 10:00 01/26/17 11:58 Prinivil GT 40 mg DAILY KWAKU Administration Metoprolol Tartrate 150 mg 11/28/16 10:00 01/26/17 11:59 Lopressor - GT 150 mg BID KWAKU Administration Multi-Ingredient Lotion 1 applic 11/07/16 11:55 Eucerin (Large Jar) - TP BID PRN DRY SKIN Scopolamine HBr 1 patch 12/10/16 11:00 01/30/17 10:13 Transderm-Scop - TD 1 patch Q72H KWAKU Administration Transfusions 01/25: PRBC 01/26-01/27 overnight: 2 PRBC, 1 platelets, 2 FFP 01/27-01/28 overnight: 2 PRBC, 1 platelets, 2 FFP Imaging 01/25/17 CTAP with IV contrast: (1) No active intraluminal bleed in the stomach or small bowel; limited evaluation of colon for bleeding due to motion and extensive precontrast dense diverticula; small amound of layering density in proximal descending colon could represent venous bleed, no definite arterial bleed; s/p right hemicolectomy; no evidence of bowel obstruction; left UPJ obstruction unchanged; large right inguinal hernia containing a large portion of the urinary bladder; IVC filter ASSESSMENT/PLAN: 75 year old male with PMH of HTN, IDDM, inguinal hernia who presented to the ED with diverticular bleed s/p right hemicolectomy. 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 Now with lower GI bleeding. Acute lower GI bleed started 01/25/17 Extensive diverticulosis h/o diverticular bleed, s/p right hemicolectomy --transfusion history above --h/h stable, one bleeding episode last night --continue protonix drip Hypernatremia, resolved Central sleep apnea --seen and evaluated by pulmonary, breathing pauses are due to central apneas secondary to anoxic brain injury; no observed evidence of GRANT --no desaturation --O2 as needed Anoxic brain injury s/p brainstem CVAs --mental status unchanged Respiratory failure secondary to anoxic brain injury, resolved --on room air, nasal cannula PRN --trach removed 09/09/16 --duonebs PRN Hydronephrosis, chronic --renal function stable Right inguinal hernia --seen again on CT today, large portion of urinary bladder contained in the hernia Functional quadriplegia secondary to anoxic brain injury --inability to feed, turn, or toilet independently; requires complete care Hypertension --BP remains stable despite bleeding losses --continue to hold lisinopril, metoprolol, amlodipine Stage III pressure ulcers buttocks, healed IDDM --hold Levemir while NPO --Novolog sliding scale coverage F/E/N Fluids/Nutrition: hold tube feeds due to active GI bleeding; D51/2NS@100mL/hr Electrolytes: replete as indicated DVT prophylaxis --SCDs bilaterally --no chemical anticoagulation 2/2 h/o bleeding Dispo: continues to require inpatient care. Family meeting held on 01/30. DNR only. Visit type - Emergency Visit Emergency Visit: Yes ED Registration Date: 06/27/15 Care time: The patient presented to the Emergency Department on the above date and was hospitalized for further evaluation of their emergent condition. - New Patient This patient is new to me today: No - Critical Care Critical Care patient: No
[2017-02-02] MEDS: PANTOPRAZOLE SODIUM 80 MG in SODIUM CHLORIDE 100 ML IVPB SCH ×3 (07:08→23:39)
[2017-02-02] MEDS: INSULIN SLIDING SCALE (NOVOLOG) 1 VIAL SQ SCH ×2 (07:09→12:50)
[2017-02-02 08:29] LABS: BASOPHIL 0.5 % (0-2.0); EOSINOPHIL 7.1 % (0-4.5); MCH 29.6 pg (25.7-33.7); MCHC 33.4 g/dl (32.0-35.9); MEAN CELL VOLUME 88.4 fl (80-96); MEAN PLT VOLUME 8.3 fl (7.5-11.1); NEUTROPHILS 61.5 % (42.8-82.8); PLATELET COUNT 237 K/MM3 (134-434); RDW 15.6 % (11.9-15.9); WHITE BLOOD COUNT 9.2 K/mm3 (4.0-10.0)
[2017-02-02 08:46] LABS: ALBUMIN 3.6 g/dl (3.4-5.0); ALK PHOS 88 U/L (45-117); ANION GAP 12 (8-16); BILIRUBIN,TOTAL 1.1 mg/dL (0.2-1.0); CALCIUM 9.3 mg/dL (8.5-10.1); CO2 25 mmol/L (21-32); COCKROFT - GAULT 86.48; CREATININE 0.8 mg/dL (0.7-1.3); GLUCOSE,RANDOM 112 mg/dL (74-106); PHOSPHOROUS 3.1 mg/dL (2.5-4.9); SGOT/AST 12 U/L (15-37); SGPT/ALT 22 U/L (12-78); TOT PROT 7.7 g/dl (6.4-8.2)
[2017-02-02] MEDS: METOPROLOL TARTRATE 50 MG TABLET (FP) GT SCH ×2 (10:10→23:23)
[2017-02-02] MEDS: LISINOPRIL 20 MG TABLET (FP) GT SCH (10:10)
[2017-02-02] MEDS: SCOPOLAMINE HYDROBROMIDE 1 PATCH PATCH.TD72 TD SCH (10:11)
[2017-02-02] MEDS: AMINO ACIDS/PROTEIN HYDROLYS SUGAR-FREE 30 ML PACKET PO SCH (10:11)
--- NOTE | 2017-02-02 14:51 | PN ---
Physical Exam: SUBJECTIVE: Patient seen and examined at bedside. No reported melanotic episodes over past 24 hours. OBJECTIVE: Vital Signs Period Temp Pulse Resp BP Sys/Santiago Pulse Ox Last 24 Hr 97.4 F-98.1 F 98-114 20-20 127-158/84-96 98-98 GENERAL/NEURO: Eyes open. Non-verbal. Does not follow commands. Non-purposeful movement. LUNGS: CTA HEART: Regular rate and rhythm, S1, S2 without murmur, rub or gallop. ABDOMEN: Soft, nontender, nondistended, normoactive bowel sounds, no guarding, no rebound, no hepatosplenomegaly, no masses. PEG tube in situ, skin clean, dry , no sign of infection : Condom cath to castellano bag draining clear urine. EXTREMITIES: 2+ pulses, warm, well-perfused, no edema. Laboratory Results - last 24 hr 02/01/17 02/01/17 02/02/17 17:08 22:34 07:06 WBC RBC Hgb Hct MCV MCHC RDW Plt Count MPV Neutrophils % Lymphocytes % Monocytes % Eosinophils % Basophils % Sodium Potassium Chloride Carbon Dioxide Anion Gap BUN Creatinine Creat Clearance w eGFR POC Glucometer 141 118 136 Random Glucose Calcium Phosphorus Magnesium Total Bilirubin AST ALT Alkaline Phosphatase Total Protein Albumin 02/02/17 02/02/17 02/02/17 07:45 07:45 12:02 WBC 9.2 RBC 3.57 L Hgb 10.6 L Hct 31.6 L MCV 88.4 MCHC 33.4 RDW 15.6 Plt Count 237 MPV 8.3 Neutrophils % 61.5 Lymphocytes % 25.3 D Monocytes % 5.6 Eosinophils % 7.1 H Basophils % 0.5 Sodium 142 Potassium 3.3 L Chloride 105 Carbon Dioxide 25 Anion Gap 12 BUN < 1 L* Creatinine 0.8 Creat Clearance w eGFR > 60 POC Glucometer 113 Random Glucose 112 H Calcium 9.3 Phosphorus 3.1 D Magnesium 2.0 D Total Bilirubin 1.1 H D AST 12 L ALT 22 Alkaline Phosphatase 88 Total Protein 7.7 Albumin 3.6 Active Medications Generic Name Dose Route Start Last Admin Trade Name Freq PRN Reason Stop Dose Admin Amino Acids 30 ml 06/28/16 10:00 02/02/17 10:11 Prostat Sugar-Free Packet - PO 30 ml DAILY KWAKU Administration Amlodipine Besylate 10 mg 12/30/15 10:00 01/30/17 10:12 Norvasc - GT 10 mg DAILY KWAKU Administration Pantoprazole Sodium 80 mg/ 100 mls @ 10 mls/hr 01/25/17 07:45 02/02/17 07:08 Sodium Chloride IVPB Not Given Q10H KWAKU 8 MG/HR Dextrose/Sodium Chloride 1,000 mls @ 100 mls/hr 02/02/17 15:00 D5-1/2ns - IV ASDIR KWAKU Lisinopril 40 mg 12/30/15 10:00 02/02/17 10:10 Prinivil GT 40 mg DAILY KWAKU Administration Metoprolol Tartrate 150 mg 11/28/16 10:00 02/02/17 10:10 Lopressor - GT 150 mg BID KWAKU Administration Multi-Ingredient Lotion 1 applic 11/07/16 11:55 Eucerin (Large Jar) - TP BID PRN DRY SKIN Scopolamine HBr 1 patch 12/10/16 11:00 02/02/17 10:11 Transderm-Scop - TD 1 patch Q72H KWAKU Administration ASSESSMENT/PLAN: Today patient's daughter and HCP Carole Chaparro executed a DNR/DNI. She has made the patient comfort care only. Acute lower GI bleed started 01/25/17 Extensive diverticulosis h/o diverticular bleed, s/p right hemicolectomy --no further transfusions --no blood draws --continue protonix drip for comfort Hypertension --will continue anti-hypertensives via PEG as this is non-invasive Stage III pressure ulcers buttocks, healed --will continue to address any skin issues as this is non-invasive IDDM --no further fingersticks; no injections F/E/N Fluids/Nutrition: D51/2NS@100mL/hr; we will maintain peripheral IV access Dispo: DNR/DNI. Comfort care only. Visit type - Emergency Visit Emergency Visit: Yes ED Registration Date: 06/27/15 Care time: The patient presented to the Emergency Department on the above date and was hospitalized for further evaluation of their emergent condition. - New Patient This patient is new to me today: No - Critical Care Critical Care patient: No
[2017-02-02] MEDS: DEXTROSE 5%-0.45% SALINE 1,000 ML IV SCH ×2 (17:51→23:22)
[2017-02-03] MEDS: PANTOPRAZOLE SODIUM 80 MG in SODIUM CHLORIDE 100 ML IVPB SCH ×3 (02:21→17:06)
[2017-02-03] MEDS: METOPROLOL TARTRATE 50 MG TABLET (FP) GT SCH ×2 (11:27→22:38)
[2017-02-03] MEDS: DEXTROSE 5%-0.45% SALINE 1,000 ML IV SCH ×3 (11:27→23:26)
[2017-02-03] MEDS: AMINO ACIDS/PROTEIN HYDROLYS SUGAR-FREE 30 ML PACKET PO SCH (11:27)
[2017-02-03] MEDS: LISINOPRIL 20 MG TABLET (FP) GT SCH (11:27)
--- NOTE | 2017-02-03 14:05 | PN ---
Physical Exam: SUBJECTIVE: Patient seen and examined. Non verbal at baseline. OBJECTIVE: DNR/DNI ordered entered Patient appears to be at his baseline neurologically Appears comfortable at rest Goals of care are now comfort care only No further lab draws, no fingersticks No further blood transfusions/blood products Vital Signs Period Temp Pulse Resp BP Sys/Santiago Pulse Ox Last 24 Hr 97 F-98.9 F 55-77 18-20 138-157/69-92 94 GENERAL: Patient is lethargic, non verbal at baseline HEAD: Normal with no signs of trauma. EYES: PERRL, extraocular movements intact, sclera anicteric, conjunctiva clear. No ptosis. ENT: Ears normal, nares patent, oropharynx clear without exudates, moist mucous membranes. NECK: Trachea midline, full range of motion, supple. LUNGS: Breath sounds equal, clear to auscultation bilaterally, no wheezes, no crackles, no accessory muscle use. HEART: Regular rate and rhythm ABDOMEN: PEG tube, abdomen soft to light palpation, no facial grimacing on palpation of abdomen, non distended, no signs of infection EXTREMITIES: 2+ pulses, warm, well-perfused, no edema. NEUROLOGICAL: Non verbal, bed bound : condom cath attached to castellano bag draining yellow clear urine PSYCH:lethargic, non verbal SKIN: Healed stage 3 on buttocks Active Medications Generic Name Dose Route Start Last Admin Trade Name Freq PRN Reason Stop Dose Admin Amino Acids 30 ml 06/28/16 10:00 02/03/17 11:27 Prostat Sugar-Free Packet - PO 30 ml DAILY KWAKU Administration Amlodipine Besylate 10 mg 12/30/15 10:00 01/30/17 10:12 Norvasc - GT 10 mg DAILY KWAKU Administration Pantoprazole Sodium 80 mg/ 100 mls @ 10 mls/hr 01/25/17 07:45 02/03/17 11:27 Sodium Chloride IVPB Not Given Q10H KWAKU 8 MG/HR Dextrose/Sodium Chloride 1,000 mls @ 100 mls/hr 02/02/17 15:00 02/03/17 11:27 D5-1/2ns - IV 100 mls/hr ASDIR KWAKU Administration Lisinopril 40 mg 12/30/15 10:00 02/03/17 11:27 Prinivil GT 40 mg DAILY KWAKU Administration Metoprolol Tartrate 150 mg 11/28/16 10:00 02/03/17 11:27 Lopressor - GT 150 mg BID KWAKU Administration Multi-Ingredient Lotion 1 applic 11/07/16 11:55 Eucerin (Large Jar) - TP BID PRN DRY SKIN Scopolamine HBr 1 patch 12/10/16 11:00 02/02/17 10:11 Transderm-Scop - TD 1 patch Q72H KWAKU Administration ASSESSMENT/PLAN: Patient is a 76 year old male with a past medical history of IDDM, HTN and inguinal hernia. He presented to the emergency room on 06/27/2015 with a diverticular bleed s/p right hemicolectomy. His hospitalization was further complicated with a CVA with anoxic brain injury. He is s/p trach secondary to respiratory failure. On 01/25/2017 patient developed an acute episode of GI bleeding. He required numerous blood transfusions, platelets and FFP infusions. His daughter and HCP Carole has execuated a DNR/DNI form and patient is comfort care only. GI: GI Bleed - acute/began 01/25/2017 with various episodes following thru 01/28 Assessment/Plan: No active signs of bleeding during exam, last bleeding episode occurred on 01/31 Continue Protonix drip, continue IVF of D5 1/2 NS @ 100cc/hr No further transfusions, no labs Neurology: Anoxic brain injury s/p brainstem CVA - at baseline Functional quadriplegia secondary to anoxic brain injury - at baseline Pulmonary: Respiratory failure secondary to anoxic brain injury - resolved, tolerating room air Cardiology: Hypertension - chronic - monitor BP, continue with BP meds through [facility] Endocrine: Diabetes - chronic - no fingersticks, comfort care Integumentary: Stage III pressure ulcers buttocks - healed - high risk for skin breakdown, turn and pos q2/air mattress, on Prostat F.E.N. NPO - No tube feeds, on Protonix drip, d5 1/2 NS @ 100, Functional quadraplegia Prophylaxis: DVT: SCDs - both legs. No AC: contraindicated secondary to GI bleed GI Regimen: on Protonix drip He is bed bound and a total care Disposition: DNR/DNI. Comfort care only as per family wishes. Visit type - Emergency Visit Emergency Visit: Yes ED Registration Date: 06/27/15 Care time: The patient presented to the Emergency Department on the above date and was hospitalized for further evaluation of their emergent condition. - New Patient This patient is new to me today: No - Critical Care Critical Care patient: No - Discharge Referral Referred to [facility] No
[2017-02-04] MEDS: PANTOPRAZOLE SODIUM 80 MG in SODIUM CHLORIDE 100 ML IVPB SCH ×4 (06:33→21:48)
[2017-02-04] MEDS: METOPROLOL TARTRATE 50 MG TABLET (FP) GT SCH ×2 (10:00→21:48)
[2017-02-04] MEDS: LISINOPRIL 20 MG TABLET (FP) GT SCH (10:00)
[2017-02-04] MEDS: AMINO ACIDS/PROTEIN HYDROLYS SUGAR-FREE 30 ML PACKET PO SCH (10:00)
[2017-02-04] MEDS: DEXTROSE 5%-0.45% SALINE 1,000 ML IV SCH ×3 (12:06→21:48)
--- NOTE | 2017-02-04 13:07 | PN ---
Physical Exam: SUBJECTIVE: Patient seen and examined. Appears at his baseline. OBJECTIVE: No overnight events, appears at his baseline Vitals stable Comfort care (no further blood draws, no capillary glucose checks, no blood transfusions, no further tube feeds) DNR/DNI Vital Signs Period Temp Pulse Resp BP Sys/Santiago Pulse Ox Last 24 Hr 97.1 F-98.2 F 45-73 18-18 129-150/82-93 98 GENERAL: Patient is lethargic, non verbal at baseline HEAD: Normal with no signs of trauma. EYES: PERRL, extraocular movements intact, sclera anicteric, conjunctiva clear. No ptosis. ENT: Ears normal, nares patent, oropharynx clear without exudates, moist mucous membranes. NECK: Trachea midline, full range of motion, supple. LUNGS: Breath sounds equal, clear to auscultation bilaterally, no wheezes, no crackles, no accessory muscle use. HEART: Regular rate and rhythm ABDOMEN: PEG tube, abdomen soft to light palpation, no facial grimacing on palpation of abdomen, non distended, no signs of infection EXTREMITIES: 2+ pulses, warm, well-perfused, no edema. NEUROLOGICAL: Non verbal, bed bound : condom cath attached to castellano bag draining yellow clear urine PSYCH:lethargic, non verbal SKIN: Healed stage 3 on buttocks Laboratory Results - last 24 hr 02/03/17 02/04/17 22:39 06:34 POC Glucometer 117 123 Active Medications Generic Name Dose Route Start Last Admin Trade Name Freq PRN Reason Stop Dose Admin Amino Acids 30 ml 06/28/16 10:00 02/04/17 10:00 Prostat Sugar-Free Packet - PO 30 ml DAILY KWAKU Administration Amlodipine Besylate 10 mg 12/30/15 10:00 01/30/17 10:12 Norvasc - GT 10 mg DAILY KWAKU Administration Pantoprazole Sodium 80 mg/ 100 mls @ 10 mls/hr 01/25/17 07:45 02/04/17 11:51 Sodium Chloride IVPB 10 mls/hr Q10H KWAKU Administration 8 MG/HR Dextrose/Sodium Chloride 1,000 mls @ 100 mls/hr 02/02/17 15:00 02/04/17 12:06 D5-1/2ns - IV 100 mls/hr ASDIR KWAKU Administration Lisinopril 40 mg 12/30/15 10:00 02/04/17 10:00 Prinivil GT 40 mg DAILY KWAKU Administration Metoprolol Tartrate 150 mg 11/28/16 10:00 02/04/17 10:00 Lopressor - GT 150 mg BID KWAKU Administration Multi-Ingredient Lotion 1 applic 11/07/16 11:55 Eucerin (Large Jar) - TP BID PRN DRY SKIN Scopolamine HBr 1 patch 12/10/16 11:00 02/02/17 10:11 Transderm-Scop - TD 1 patch Q72H KWAKU Administration ASSESSMENT/PLAN: Patient is a 76 year old male with a past medical history of IDDM, HTN and inguinal hernia. He presented to the emergency room on 06/27/2015 with a diverticular bleed s/p right hemicolectomy. His hospitalization was further complicated with a CVA with anoxic brain injury. He is s/p trach secondary to respiratory failure. On 01/25/2017 patient developed an acute episode of GI bleeding. He required numerous blood transfusions, platelets and FFP infusions. His daughter and HCP Carole has execuated a DNR/DNI form and patient is now comfort care only. GI: GI Bleed - acute/began 01/25/2017 with various episodes following thru 01/28 Assessment/Plan: No active signs of bleeding during exam, last bleeding episode occurred on 01/31, Continue Protonix drip, IVF of D5 1/2 NS @ 100cc/hr Neurology: Anoxic brain injury s/p brainstem CVA - at baseline Functional quadriplegia secondary to anoxic brain injury - at baseline Pulmonary: Respiratory failure secondary to anoxic brain injury - resolved, tolerating room air Cardiology: Hypertension - chronic - monitor BP, continue with BP meds through GT Endocrine: Diabetes - chronic - no fingersticks, comfort care Integumentary: Stage III pressure ulcers buttocks - healed - high risk for skin breakdown, turn and pos q2/air mattress, on Prostat F.E.N. NPO - No tube feeds, on Protonix drip, d5 1/2 NS @ 100, Functional quadraplegia Prophylaxis: DVT: SCDs - both legs. No AC: contraindicated secondary to GI bleed GI Regimen: on Protonix drip He is bed bound and a total care Disposition: DNR/DNI. Comfort care only as per family wishes. Visit type - Emergency Visit Emergency Visit: Yes ED Registration Date: 06/27/15 Care time: The patient presented to the Emergency Department on the above date and was hospitalized for further evaluation of their emergent condition. - New Patient This patient is new to me today: No - Critical Care Critical Care patient: No - Discharge Referral Referred to [id number] No
[2017-02-05] MEDS: PANTOPRAZOLE SODIUM 80 MG in SODIUM CHLORIDE 100 ML IVPB SCH ×2 (07:44→17:20)
[2017-02-05] MEDS: DEXTROSE 5%-0.45% SALINE 1,000 ML IV SCH ×2 (07:44→17:09)
[2017-02-05] MEDS: METOPROLOL TARTRATE 50 MG TABLET (FP) GT SCH ×2 (10:50→22:10)
[2017-02-05] MEDS: LISINOPRIL 20 MG TABLET (FP) GT SCH (10:55)
[2017-02-05] MEDS: AMINO ACIDS/PROTEIN HYDROLYS SUGAR-FREE 30 ML PACKET PO SCH (10:55)
[2017-02-05] MEDS: SCOPOLAMINE HYDROBROMIDE 1 PATCH PATCH.TD72 TD SCH (11:56)
--- NOTE | 2017-02-05 14:50 | PN ---
Physical Exam: SUBJECTIVE: Patient seen and examined. Resting comfortably. At baseline. OBJECTIVE: Vital Signs Period Temp Pulse Resp BP Sys/Santiago Pulse Ox Last 24 Hr 97.6 F-98.4 F 51-80 20-20 149-161/62-85 96-96 GENERAL: Patient is lethargic, non verbal at baseline HEAD: Normal with no signs of trauma. EYES: PERRL, extraocular movements intact, sclera anicteric, conjunctiva clear. No ptosis. ENT: Ears normal, nares patent, oropharynx clear without exudates, moist mucous membranes. NECK: Trachea midline, full range of motion, supple. LUNGS: Breath sounds equal, clear to auscultation bilaterally, no wheezes, no crackles, no accessory muscle use. HEART: Regular rate and rhythm ABDOMEN: PEG tube, abdomen soft to light palpation, no facial grimacing on palpation of abdomen, non distended, no signs of infection EXTREMITIES: 2+ pulses, warm, well-perfused, no edema. NEUROLOGICAL: Non verbal, bed bound : condom cath attached to castellano bag draining yellow clear urine PSYCH:lethargic, non verbal SKIN: Healed stage 3 on buttocks Laboratory Results - last 24 hr 02/05/17 11:02 POC Glucometer 134 Active Medications Generic Name Dose Route Start Last Admin Trade Name Freq PRN Reason Stop Dose Admin Amino Acids 30 ml 06/28/16 10:00 02/05/17 10:55 Prostat Sugar-Free Packet - PO 30 ml DAILY KWAKU Administration Amlodipine Besylate 10 mg 12/30/15 10:00 01/30/17 10:12 Norvasc - GT 10 mg DAILY KWAKU Administration Pantoprazole Sodium 80 mg/ 100 mls @ 10 mls/hr 01/25/17 07:45 02/05/17 07:44 Sodium Chloride IVPB 10 mls/hr Q10H KWAKU Administration 8 MG/HR Dextrose/Sodium Chloride 1,000 mls @ 100 mls/hr 02/02/17 15:00 02/05/17 07:44 D5-1/2ns - IV 100 mls/hr ASDIR KWAKU Administration Lisinopril 40 mg 12/30/15 10:00 02/05/17 10:55 Prinivil GT 40 mg DAILY KWAKU Administration Metoprolol Tartrate 150 mg 11/28/16 10:00 02/05/17 10:50 Lopressor - GT 150 mg BID KWAKU Administration Multi-Ingredient Lotion 1 applic 11/07/16 11:55 Eucerin (Large Jar) - TP BID PRN DRY SKIN Scopolamine HBr 1 patch 12/10/16 11:00 02/05/17 11:56 Transderm-Scop - TD 1 patch Q72H KWAKU Administration ASSESSMENT/PLAN: Patient is a 76 year old male with a past medical history of IDDM, HTN and inguinal hernia. He presented to the emergency room on 06/27/2015 with a diverticular bleed s/p right hemicolectomy. His hospitalization was further complicated with a CVA with anoxic brain injury. He is s/p trach secondary to respiratory failure. On 01/25/2017 patient developed an acute episode of GI bleeding. He required numerous blood transfusions, platelets and FFP infusions. His daughter and HCP Carole has execuated a DNR/DNI form and patient is now comfort care only. GI: GI Bleed - acute/began 01/25/2017 with various episodes following thru 01/28 Assessment/Plan: No active signs of bleeding during exam, last bleeding episode occurred on 01/31, Continue Protonix drip, IVF of D5 1/2 NS @ 100cc/hr Neurology: Anoxic brain injury s/p brainstem CVA - at baseline Functional quadriplegia secondary to anoxic brain injury - at baseline Pulmonary: Respiratory failure secondary to anoxic brain injury - resolved, tolerating room air Cardiology: Hypertension - chronic - monitor BP, continue with BP meds through GT Endocrine: Diabetes - chronic - no fingersticks, comfort care Integumentary: Stage III pressure ulcers buttocks - healed - high risk for skin breakdown, turn and pos q2/air mattress, on Prostat F.E.N. NPO - No tube feeds, on Protonix drip, d5 1/2 NS @ 100, Functional quadraplegia Prophylaxis: DVT: SCDs - both legs. No AC: contraindicated secondary to GI bleed GI Regimen: on Protonix drip He is bed bound and a total care Disposition: DNR/DNI. Comfort care only as per family wishes. Visit type - Emergency Visit Emergency Visit: Yes ED Registration Date: 06/27/15 Care time: The patient presented to the Emergency Department on the above date and was hospitalized for further evaluation of their emergent condition. - New Patient This patient is new to me today: No - Critical Care Critical Care patient: No - Discharge Referral Referred to [facility] No
[2017-02-06] MEDS: PANTOPRAZOLE SODIUM 80 MG in SODIUM CHLORIDE 100 ML IVPB SCH ×5 (01:16→22:08)
[2017-02-06] MEDS: METOPROLOL TARTRATE 50 MG TABLET (FP) GT SCH ×2 (10:00→22:07)
[2017-02-06] MEDS: LISINOPRIL 20 MG TABLET (FP) GT SCH (10:10)
[2017-02-06] MEDS: AMINO ACIDS/PROTEIN HYDROLYS SUGAR-FREE 30 ML PACKET PO SCH (12:16)
--- NOTE | 2017-02-06 12:37 | PN ---
Physical Exam: SUBJECTIVE: Patient seen and examined. Appears comfortable at rest. OBJECTIVE: Heart rate in the 40s today DNR/DNI ordered entered Patient appears to be at his baseline neurologically Appears comfortable at rest Goals of care are now comfort care only - allow a natural No further lab draws, no fingersticks, no peg tube feeds No further blood transfusions, no blood products as per family wishes Vital Signs Period Temp Pulse Resp BP Sys/Santiago Pulse Ox Last 24 Hr 98.1 F-98.8 F 48-89 20-20 123-171/72-87 97-98 GENERAL: Patient is lethargic, non verbal at baseline HEAD: Normal with no signs of trauma. EYES: PERRL, extraocular movements intact, sclera anicteric, conjunctiva clear. No ptosis. ENT: Ears normal, nares patent, oropharynx clear without exudates, moist mucous membranes. NECK: Trachea midline, full range of motion, supple. LUNGS: Breath sounds equal, clear to auscultation bilaterally, no wheezes, no crackles, no accessory muscle use. HEART: Irregular heart rate between 40-70s ABDOMEN: PEG tube, abdomen soft to light palpation, no facial grimacing on palpation of abdomen, non distended, no signs of infection EXTREMITIES: 2+ pulses, warm, well-perfused, no edema. NEUROLOGICAL: Non verbal, bed bound : condom cath attached to castellano bag draining yellow clear urine PSYCH:lethargic, non verbal SKIN: Healed stage 3 on buttocks Laboratory Results - last 24 hr 02/05/17 17:03 POC Glucometer 114 Active Medications Generic Name Dose Route Start Last Admin Trade Name Ginette PRN Reason Stop Dose Admin Amino Acids 30 ml 06/28/16 10:00 02/06/17 12:16 Prostat Sugar-Free Packet - PO 30 ml DAILY KWAKU Administration Amlodipine Besylate 10 mg 12/30/15 10:00 01/30/17 10:12 Norvasc - GT 10 mg DAILY KWAKU Administration Pantoprazole Sodium 80 mg/ 100 mls @ 10 mls/hr 01/25/17 07:45 02/06/17 01:16 Sodium Chloride IVPB Not Given Q10H KWAKU 8 MG/HR Dextrose/Sodium Chloride 1,000 mls @ 100 mls/hr 02/02/17 15:00 02/05/17 17:09 D5-1/2ns - IV 100 mls/hr ASDIR KWAKU Administration Lisinopril 40 mg 12/30/15 10:00 02/06/17 10:10 Prinivil GT Not Given DAILY KWAKU Metoprolol Tartrate 150 mg 11/28/16 10:00 02/06/17 10:00 Lopressor - GT Not Given BID KWAKU Multi-Ingredient Lotion 1 applic 11/07/16 11:55 Eucerin (Large Jar) - TP BID PRN DRY SKIN Scopolamine HBr 1 patch 12/10/16 11:00 02/05/17 11:56 Transderm-Scop - TD 1 patch Q72H KWAKU Administration ASSESSMENT/PLAN: Patient is a 76 year old male with a past medical history of IDDM, HTN and inguinal hernia. He presented to the emergency room on 06/27/2015 with a diverticular bleed s/p right hemicolectomy. His hospitalization was further complicated with a CVA with anoxic brain injury. He is s/p trach secondary to respiratory failure. On 01/25/2017 patient developed an acute episode of GI bleeding. He required numerous blood transfusions, platelets and FFP infusions. His daughter and HCP Carole has execuated a DNR/DNI form and patient is now comfort care only. GI: GI Bleed - acute/began 01/25/2017 with various episodes following thru 01/28 Assessment/Plan: No active signs of bleeding during exam, last bleeding episode occurred on 01/31, Continue Protonix drip, IVF of D5 1/2 NS @ 100cc/hr Neurology: Anoxic brain injury s/p brainstem CVA - at baseline Functional quadriplegia secondary to anoxic brain injury - at baseline Pulmonary: Respiratory failure secondary to anoxic brain injury - resolved, tolerating room air - DNI Cardiology: Hypertension - chronic - monitor BP, continue with BP meds through GT Endocrine: Diabetes - chronic - no fingersticks, comfort care Integumentary: Stage III pressure ulcers buttocks - healed - high risk for skin breakdown, turn and pos q2/air mattress, on Prostat F.E.N. NPO - No further tube feeds, on Protonix drip, d5 1/2 NS @ 100, Functional quadraplegia Prophylaxis: DVT: SCDs - both legs. No AC: contraindicated secondary to GI bleed GI Regimen: on Protonix drip , He is bed bound and a total care Disposition: DNR/DNI. Comfort care only as per family wishes. Visit type - Emergency Visit Emergency Visit: Yes ED Registration Date: 06/27/15 Care time: The patient presented to the Emergency Department on the above date and was hospitalized for further evaluation of their emergent condition. - New Patient This patient is new to me today: No - Critical Care Critical Care patient: No - Discharge Referral Referred to [facility] No
[2017-02-06] MEDS: DEXTROSE 5%-0.45% SALINE 1,000 ML IV SCH ×2 (13:23→22:07)
[2017-02-07] MEDS: PANTOPRAZOLE SODIUM 80 MG in SODIUM CHLORIDE 100 ML IVPB SCH ×3 (06:47→18:40)
[2017-02-07] MEDS: LISINOPRIL 20 MG TABLET (FP) GT SCH (10:45)
[2017-02-07] MEDS: METOPROLOL TARTRATE 50 MG TABLET (FP) GT SCH ×2 (10:45→22:48)
[2017-02-07] MEDS: AMINO ACIDS/PROTEIN HYDROLYS SUGAR-FREE 30 ML PACKET PO SCH (10:46)
[2017-02-07] MEDS: DEXTROSE 5%-0.45% SALINE 1,000 ML IV SCH ×2 (10:46→16:06)
[2017-02-08] MEDS: PANTOPRAZOLE SODIUM 80 MG in SODIUM CHLORIDE 100 ML IVPB SCH ×3 (01:45→21:44)
[2017-02-08] MEDS: DEXTROSE 5%-0.45% SALINE 1,000 ML IV SCH ×3 (01:46→21:43)
[2017-02-08] MEDS: METOPROLOL TARTRATE 50 MG TABLET (FP) GT SCH ×2 (10:54→21:43)
[2017-02-08] MEDS: LISINOPRIL 20 MG TABLET (FP) GT SCH (10:54)
[2017-02-08] MEDS: AMINO ACIDS/PROTEIN HYDROLYS SUGAR-FREE 30 ML PACKET PO SCH (10:55)
[2017-02-08] MEDS: SCOPOLAMINE HYDROBROMIDE 1 PATCH PATCH.TD72 TD SCH (11:56)
[2017-02-09] MEDS: PANTOPRAZOLE SODIUM 80 MG in SODIUM CHLORIDE 100 ML IVPB SCH (08:06)
[2017-02-09] MEDS: AMINO ACIDS/PROTEIN HYDROLYS SUGAR-FREE 30 ML PACKET PO SCH (10:47)
[2017-02-09] MEDS: LISINOPRIL 20 MG TABLET (FP) GT SCH (10:47)
[2017-02-09] MEDS: METOPROLOL TARTRATE 50 MG TABLET (FP) GT SCH ×2 (10:48→22:31)
[2017-02-09] MEDS: DEXTROSE 5%-0.45% SALINE 1,000 ML IV SCH (17:09)
--- NOTE | 2017-02-09 17:18 | PN ---
Physical Exam: SUBJECTIVE: Patient seen and examined. No changes to mental status event: - Bradycardic this AM OBJECTIVE: Vital Signs Period Temp Pulse Resp BP Sys/Santiago Pulse Ox Last 24 Hr 97.7 F-98.7 F 45-52 18-20 136-177/73-86 100-100 PE Neuro: awakens to voice Pulm: Clear anteriorly, trach hole open CV: s1 s2 rrr no mrg Abd: peg tube CDI, s nt nd +bs Ext: foot drop, no edema, warm Skin: sacral wound Active Medications Generic Name Dose Route Start Last Admin Trade Name Freq PRN Reason Stop Dose Admin Amino Acids 30 ml 06/28/16 10:00 02/09/17 10:47 Prostat Sugar-Free Packet - PO 30 ml DAILY KWAKU Administration Amlodipine Besylate 10 mg 12/30/15 10:00 01/30/17 10:12 Norvasc - GT 10 mg DAILY KWAKU Administration Pantoprazole Sodium 80 mg/ 100 mls @ 10 mls/hr 01/25/17 07:45 02/09/17 08:06 Sodium Chloride IVPB 10 mls/hr Q10H KWAKU Administration 8 MG/HR Dextrose/Sodium Chloride 1,000 mls @ 100 mls/hr 02/02/17 15:00 02/09/17 17:09 D5-1/2ns - IV 100 mls/hr ASDIR KWAKU Administration Lisinopril 40 mg 12/30/15 10:00 02/09/17 10:47 Prinivil GT 40 mg DAILY KWAKU Administration Metoprolol Tartrate 150 mg 11/28/16 10:00 02/09/17 10:48 Lopressor - GT Not Given BID KWAKU Multi-Ingredient Lotion 1 applic 11/07/16 11:55 Eucerin (Large Jar) - TP BID PRN DRY SKIN Scopolamine HBr 1 patch 12/10/16 11:00 02/08/17 11:56 Transderm-Scop - TD 1 patch Q72H KWAKU Administration Assessment: 76 year old male with PMHx of HTN, IDDM, inguinal hernia who presented to the ED with diverticular bleed s/p Right hemicolectomy with hospital course complicated 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 On 01/25/17 pt developed acute GI bleeding requiring numerous blood /platelet/ and FFP transfusions lasting through 01/28. Since, has been made DNI/DNR with comfort care measure, TF have been discontinued. Impression: Comfort Care Anoxic brain injury- baseline GI bleed HTN DM II - no finger sticks Stage III pressure ulcer Plan: - Change protonix gtt to PO BID - Maintain D5 1/2 NS @100cc/hr - Norvasc 10mg daily - Lisinopril 40mg daily - Decrease metoprolol 100mg BID for bradycardia - Continue prostate Visit type - Emergency Visit Emergency Visit: Yes ED Registration Date: 06/27/15 Care time: The patient presented to the Emergency Department on the above date and was hospitalized for further evaluation of their emergent condition. - New Patient This patient is new to me today: No - Critical Care Critical Care patient: No
[2017-02-09] MEDS: PANTOPRAZOLE SODIUM 100 ML IVPB SCH (22:32)
[2017-02-10] MEDS: DEXTROSE 5%-0.45% SALINE 1,000 ML IV SCH ×3 (03:24→23:25)
--- NOTE | 2017-02-10 09:53 | PN ---
Physical Exam: SUBJECTIVE: Patient seen and examined Pt status unchanged, remains unresponsive. OBJECTIVE: Vital Signs Period Temp Pulse Resp BP Sys/Santiago Pulse Ox Last 24 Hr 97.7 F-98.9 F 46-56 18-20 136-160/78-87 98 GENERAL: The patient is awake, alert,non-verbal HEAD: Normal with no signs of trauma. EYES: PERRL, extraocular movements intact, sclera anicteric, conjunctiva clear. No ptosis. ENT: Ears normal, nares patent, oropharynx clear without exudates, moist mucous membranes. NECK: Trachea midline, full range of motion, supple. LUNGS: BS diminished bilaterally, no wheezes, no crackles, no accessory muscle use. HEART: Irregular ABDOMEN: Soft, nontender, nondistended, normoactive bowel sounds, no guarding, no rebound, no hepatosplenomegaly, no masses.peg tube EXTREMITIES: 2+ pulses, warm, well-perfused, no edema. NEUROLOGICAL: non-verbal gait not observed, non ambulatory PSYCH: Flat affect. SKIN: Warm,Bilateral heel protectors,healed sacral wound Active Medications Generic Name Dose Route Start Last Admin Trade Name Freq PRN Reason Stop Dose Admin Amino Acids 30 ml 06/28/16 10:00 02/09/17 10:47 Prostat Sugar-Free Packet - PO 30 ml DAILY KWAKU Administration Amlodipine Besylate 10 mg 12/30/15 10:00 01/30/17 10:12 Norvasc - GT 10 mg DAILY KWAKU Administration Dextrose/Sodium Chloride 1,000 mls @ 100 mls/hr 02/02/17 15:00 02/10/17 03:24 D5-1/2ns - IV 100 mls/hr ASDIR KWAKU Administration Pantoprazole Sodium 100 mls @ 200 mls/hr 02/09/17 22:00 02/09/17 22:32 Protonix 40mg Ivpb (Pre-Docked) IVPB 200 mls/hr BID KWAKU Administration Lisinopril 40 mg 12/30/15 10:00 02/09/17 10:47 Prinivil GT 40 mg DAILY KWAKU Administration Metoprolol Tartrate 100 mg 02/09/17 17:37 02/09/17 22:31 Lopressor - GT 100 mg BID KWAKU Administration Multi-Ingredient Lotion 1 applic 11/07/16 11:55 Eucerin (Large Jar) - TP BID PRN DRY SKIN Scopolamine HBr 1 patch 12/10/16 11:00 02/08/17 11:56 Transderm-Scop - TD 1 patch Q72H KWAKU Administration ASSESSMENT/PLAN: This is a 76 year old male with PMHx of HTN, IDDM, inguinal hernia who presented to the ED with diverticular bleed s/p Right hemicolectomy with hospital course complicated 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 On 01/25/17 pt developed acute GI bleeding requiring numerous blood /platelet/ and FFP transfusions lasting through 01/28. Since, has been made DNI/DNR with comfort care measure, TF have been discontinued. *Anoxic brain injury- baseline -Comfort Care - Change protonix gtt to PO BID - Maintain D5 1/2 NS @100cc/hr - Norvasc 10mg daily - Lisinopril 40mg daily - metoprolol 100mg BID - Continue prostate * Impression Anoxic brain injury- baseline GI bleed HTN DM II - no finger sticks Stage III pressure ulcer Code status: DNR/DNI Visit type - Emergency Visit Emergency Visit: Yes ED Registration Date: 06/27/15 Care time: The patient presented to the Emergency Department on the above date and was hospitalized for further evaluation of their emergent condition. - New Patient This patient is new to me today: No - Critical Care Critical Care patient: No
[2017-02-10] MEDS: PANTOPRAZOLE SODIUM 100 ML IVPB SCH ×2 (10:19→22:35)
[2017-02-10] MEDS: LISINOPRIL 20 MG TABLET (FP) GT SCH (10:20)
[2017-02-10] MEDS: METOPROLOL TARTRATE 50 MG TABLET (FP) GT SCH ×2 (10:20→22:34)
[2017-02-10] MEDS: amLODIPine BESYLATE 10 MG TABLET (FP) GT SCH (10:23)
[2017-02-10] MEDS: AMINO ACIDS/PROTEIN HYDROLYS SUGAR-FREE 30 ML PACKET PO SCH (10:23)
[2017-02-11] MEDS: PANTOPRAZOLE SODIUM 100 ML IVPB SCH ×2 (09:59→22:59)
[2017-02-11] MEDS: amLODIPine BESYLATE 10 MG TABLET (FP) GT SCH (09:59)
[2017-02-11] MEDS: LISINOPRIL 20 MG TABLET (FP) GT SCH (09:59)
[2017-02-11] MEDS: METOPROLOL TARTRATE 50 MG TABLET (FP) GT SCH (10:05)
[2017-02-11] MEDS: SCOPOLAMINE HYDROBROMIDE 1 PATCH PATCH.TD72 TD SCH (10:11)
[2017-02-11] MEDS: AMINO ACIDS/PROTEIN HYDROLYS SUGAR-FREE 30 ML PACKET PO SCH (10:11)
--- NOTE | 2017-02-11 12:46 | PN ---
Physical Exam: SUBJECTIVE: Patient seen and examined OBJECTIVE: Vital Signs Period Temp Pulse Resp BP Sys/Santiago Pulse Ox Last 24 Hr 97.8 F-98.7 F 43-86 18-20 131-175/60-85 95-95 GENERAL/NEURO: Eyes open. Non-verbal. Does not follow commands. LUNGS: Regular, unlabored respirations HEART: Regular rate and rhythm, S1, S2 without murmur, rub or gallop. ABDOMEN: Soft, nontender, nondistended EXTREMITIES: 2+ pulses, warm, well-perfused, no edema. Active Medications Generic Name Dose Route Start Last Admin Trade Name Freq PRN Reason Stop Dose Admin Amino Acids 30 ml 06/28/16 10:00 02/11/17 10:11 Prostat Sugar-Free Packet - PO 30 ml DAILY KWAKU Administration Amlodipine Besylate 10 mg 12/30/15 10:00 02/11/17 09:59 Norvasc - GT 10 mg DAILY KWAKU Administration Dextrose/Sodium Chloride 1,000 mls @ 100 mls/hr 02/02/17 15:00 02/10/17 23:25 D5-1/2ns - IV 100 mls/hr ASDIR KWAKU Administration Pantoprazole Sodium 100 mls @ 200 mls/hr 02/09/17 22:00 02/11/17 09:59 Protonix 40mg Ivpb (Pre-Docked) IVPB 200 mls/hr BID KWAKU Administration Lisinopril 40 mg 12/30/15 10:00 02/11/17 09:59 Prinivil GT 40 mg DAILY KWAKU Administration Metoprolol Tartrate 100 mg 02/12/17 10:00 Lopressor - GT DAILY KWAKU Multi-Ingredient Lotion 1 applic 11/07/16 11:55 Eucerin (Large Jar) - TP BID PRN DRY SKIN Scopolamine HBr 1 patch 12/10/16 11:00 02/11/17 10:11 Transderm-Scop - TD 1 patch Q72H KWAKU Administration ASSESSMENT/PLAN Hypertension --pulse dropping into 40s at times, will lower dose of metoprolol from BID to daily Stage III pressure ulcers buttocks, healed --will continue to address any skin issues as this is non-invasive Lower GI bleed --no further episodes --protonix drip de-escalated to BID dosing IDDM --no further fingersticks; no injections F/E/N Fluids/Nutrition: D51/2NS@100mL/hr; we will maintain peripheral IV access Dispo: DNR/DNI. Comfort care only. Visit type - Emergency Visit Emergency Visit: Yes ED Registration Date: 06/27/15 Care time: The patient presented to the Emergency Department on the above date and was hospitalized for further evaluation of their emergent condition. - New Patient This patient is new to me today: No - Critical Care Critical Care patient: No
[2017-02-12] MEDS: DEXTROSE 5%-0.45% SALINE 1,000 ML IV SCH ×2 (05:14→15:50)
[2017-02-12] MEDS: PANTOPRAZOLE SODIUM 100 ML IVPB SCH ×2 (10:44→23:22)
[2017-02-12] MEDS: METOPROLOL TARTRATE 50 MG TABLET (FP) GT SCH (10:44)
[2017-02-12] MEDS: AMINO ACIDS/PROTEIN HYDROLYS SUGAR-FREE 30 ML PACKET PO SCH (10:45)
[2017-02-12] MEDS: LISINOPRIL 20 MG TABLET (FP) GT SCH (10:45)
[2017-02-12] MEDS: amLODIPine BESYLATE 10 MG TABLET (FP) GT SCH (10:45)
--- NOTE | 2017-02-12 13:35 | PN ---
Physical Exam: SUBJECTIVE: Patient seen and examined. Appears at his baseline. No overnight events OBJECTIVE: Pt is awake, non verbal @ baseline. Heart rate in 70s Vital Signs Period Temp Pulse Resp BP Sys/Santiago Pulse Ox Last 24 Hr 98.5 F-99.3 F 52-90 16-20 137-182/69-115 96 GENERAL: Patient is lethargic, non verbal at baseline HEAD: Normal with no signs of trauma. EYES: PERRL, extraocular movements intact, sclera anicteric, conjunctiva clear. No ptosis. ENT: Ears normal, nares patent, oropharynx clear without exudates, moist mucous membranes. NECK: Trachea midline, full range of motion, supple. LUNGS: Breath sounds equal, clear to auscultation bilaterally, no wheezes, no crackles, no accessory muscle use. HEART: Irregular heart rate 70s ABDOMEN: PEG tube, abdomen soft to light palpation, no facial grimacing on palpation of abdomen, non distended, no signs of infection EXTREMITIES: 2+ pulses, warm, well-perfused, no edema. NEUROLOGICAL: Non verbal, bed bound : condom cath attached to castellano bag draining yellow clear urine PSYCH:lethargic, non verbal SKIN: Healed stage 3 on buttocks Active Medications Generic Name Dose Route Start Last Admin Trade Name Freq PRN Reason Stop Dose Admin Amino Acids 30 ml 06/28/16 10:00 02/12/17 10:45 Prostat Sugar-Free Packet - PO 30 ml DAILY KWAKU Administration Amlodipine Besylate 10 mg 12/30/15 10:00 02/12/17 10:45 Norvasc - GT 10 mg DAILY KWAKU Administration Dextrose/Sodium Chloride 1,000 mls @ 100 mls/hr 02/02/17 15:00 02/12/17 05:14 D5-1/2ns - IV 100 mls/hr ASDIR KWAKU Administration Pantoprazole Sodium 100 mls @ 200 mls/hr 02/09/17 22:00 02/12/17 10:44 Protonix 40mg Ivpb (Pre-Docked) IVPB 200 mls/hr BID KWAKU Administration Lisinopril 40 mg 12/30/15 10:00 02/12/17 10:45 Prinivil GT 40 mg DAILY KWAKU Administration Metoprolol Tartrate 100 mg 02/12/17 10:00 02/12/17 10:44 Lopressor - GT 100 mg DAILY KWAKU Administration Multi-Ingredient Lotion 1 applic 11/07/16 11:55 Eucerin (Large Jar) - TP BID PRN DRY SKIN Scopolamine HBr 1 patch 12/10/16 11:00 02/11/17 10:11 Transderm-Scop - TD 1 patch Q72H KWAKU Administration ASSESSMENT/PLAN: Patient is comfort care only as per family wishes GI Bleed - resolved Anoxic brain injury- @ baseline Assessment/Plan: Comfort Care only Protonix 40mg BID for GI bleed prophylaxis On D5 1/2 NS @ 100cc/h4 Continue Norvasc 10mg daily, Lisonpril 40mg daily, Metoprolol 100mg daily On Prostat F.E.N. NPO - No further tube feeds, on Protonix drip, d5 1/2 NS @ 100, Functional quadraplegia Prophylaxis: DVT: SCDs - both legs. No AC: contraindicated secondary to GI bleed GI Regimen: on Protonix drip , He is bed bound and a total care Disposition: DNR/DNI. Comfort care only as per family wishes. Visit type - Emergency Visit Emergency Visit: Yes ED Registration Date: 06/27/15 Care time: The patient presented to the Emergency Department on the above date and was hospitalized for further evaluation of their emergent condition. - New Patient This patient is new to me today: No - Critical Care Critical Care patient: No - Discharge Referral Referred to [facility] No
[2017-02-13] MEDS: DEXTROSE 5%-0.45% SALINE 1,000 ML IV SCH ×3 (05:56→23:25)
[2017-02-13] MEDS: METOPROLOL TARTRATE 50 MG TABLET (FP) GT SCH (10:50)
[2017-02-13] MEDS: PANTOPRAZOLE SODIUM 100 ML IVPB SCH ×2 (10:50→23:25)
[2017-02-13] MEDS: AMINO ACIDS/PROTEIN HYDROLYS SUGAR-FREE 30 ML PACKET PO SCH (10:50)
[2017-02-13] MEDS: amLODIPine BESYLATE 10 MG TABLET (FP) GT SCH (10:50)
[2017-02-13] MEDS: LISINOPRIL 20 MG TABLET (FP) GT SCH (10:50)
--- NOTE | 2017-02-13 11:20 | PN ---
Physical Exam: SUBJECTIVE: Patient seen and examined At his baseline. eyes open, appears comfortable. FLACC pain scale : 0 OBJECTIVE: Comfort care only DNR/DNI Vital Signs Period Temp Pulse Resp BP Sys/Santiago Pulse Ox Last 24 Hr 97.4 F-98.9 F 51-79 18-20 145-158/72-80 96-96 GENERAL: Patient is lethargic, non verbal at baseline HEAD: Normal with no signs of trauma. EYES: PERRL, extraocular movements intact, sclera anicteric, conjunctiva clear. No ptosis. ENT: Ears normal, nares patent, oropharynx clear without exudates, moist mucous membranes. NECK: Trachea midline, full range of motion, supple. LUNGS: Breath sounds equal, clear to auscultation bilaterally, no wheezes, no crackles, no accessory muscle use. HEART: Irregular heart rate 70s ABDOMEN: PEG tube, abdomen soft to light palpation, no facial grimacing on palpation of abdomen, non distended, no signs of infection EXTREMITIES: 2+ pulses, warm, well-perfused, no edema. NEUROLOGICAL: Non verbal, bed bound : condom cath attached to castellano bag draining yellow clear urine PSYCH:lethargic, non verbal SKIN: Healed stage 3 on buttocks Active Medications Generic Name Dose Route Start Last Admin Trade Name Freq PRN Reason Stop Dose Admin Amino Acids 30 ml 06/28/16 10:00 02/12/17 10:45 Prostat Sugar-Free Packet - PO 30 ml DAILY KWAKU Administration Amlodipine Besylate 10 mg 12/30/15 10:00 02/12/17 10:45 Norvasc - GT 10 mg DAILY KWAKU Administration Dextrose/Sodium Chloride 1,000 mls @ 100 mls/hr 02/02/17 15:00 02/13/17 05:56 D5-1/2ns - IV 100 mls/hr ASDIR KWAKU Administration Pantoprazole Sodium 100 mls @ 200 mls/hr 02/09/17 22:00 02/12/17 23:22 Protonix 40mg Ivpb (Pre-Docked) IVPB 200 mls/hr BID KWAKU Administration Lisinopril 40 mg 12/30/15 10:00 02/12/17 10:45 Prinivil GT 40 mg DAILY KWAKU Administration Metoprolol Tartrate 100 mg 02/12/17 10:00 02/12/17 10:44 Lopressor - GT 100 mg DAILY KWAKU Administration Multi-Ingredient Lotion 1 applic 11/07/16 11:55 Eucerin (Large Jar) - TP BID PRN DRY SKIN Scopolamine HBr 1 patch 12/10/16 11:00 02/11/17 10:11 Transderm-Scop - TD 1 patch Q72H KWAKU Administration ASSESSMENT/PLAN: Patient is comfort care only as per family wishes GI Bleed - resolved Anoxic brain injury- @ baseline Assessment/Plan: Comfort Care only Protonix 40mg BID for GI bleed prophylaxis On D5 1/2 NS @ 100cc/h4 Continue Norvasc 10mg daily, Lisonpril 40mg daily, Metoprolol 100mg daily On Prostat F.E.N. NPO - No further tube feeds, on Protonix BID, d5 1/2 NS @ 100, Functional quadraplegia Prophylaxis: DVT: SCDs - both legs. No AC: contraindicated secondary to GI bleed GI Regimen: on Protonix 40mg BID He is bed bound and a total care Disposition: DNR/DNI. Comfort care only as per family wishes. Visit type - Emergency Visit Emergency Visit: Yes ED Registration Date: 06/27/15 Care time: The patient presented to the Emergency Department on the above date and was hospitalized for further evaluation of their emergent condition. - New Patient This patient is new to me today: No - Critical Care Critical Care patient: No - Discharge Referral Referred to [facility] Med P.C.: No
[2017-02-14] MEDS: PANTOPRAZOLE SODIUM 100 ML IVPB SCH ×2 (09:59→22:38)
[2017-02-14] MEDS: SCOPOLAMINE HYDROBROMIDE 1 PATCH PATCH.TD72 TD SCH (10:00)
[2017-02-14] MEDS: METOPROLOL TARTRATE 50 MG TABLET (FP) GT SCH (10:00)
[2017-02-14] MEDS: LISINOPRIL 20 MG TABLET (FP) GT SCH (10:00)
[2017-02-14] MEDS: AMINO ACIDS/PROTEIN HYDROLYS SUGAR-FREE 30 ML PACKET PO SCH (10:00)
[2017-02-14] MEDS: amLODIPine BESYLATE 10 MG TABLET (FP) GT SCH (10:00)
--- NOTE | 2017-02-14 15:46 | PN ---
Progress Note (short form) - Note Progress Note: Subjective: The patient was seen and examined at the bedside, non-verbal. Tolerating room air well Current Medications Generic Name Dose Route Start Last Admin Trade Name Ginette PRN Reason Stop Dose Admin Amino Acids 30 ml 06/28/16 10:00 02/14/17 10:00 Prostat Sugar-Free Packet - PO 30 ml DAILY KWAKU Administration Amlodipine Besylate 10 mg 12/30/15 10:00 02/14/17 10:00 Norvasc - GT 10 mg DAILY KWAKU Administration Dextrose/Sodium Chloride 1,000 mls @ 100 mls/hr 02/02/17 15:00 02/13/17 23:25 D5-1/2ns - IV 100 mls/hr ASDIR KWAKU Administration Pantoprazole Sodium 100 mls @ 200 mls/hr 02/09/17 22:00 02/14/17 09:59 Protonix 40mg Ivpb (Pre-Docked) IVPB 200 mls/hr BID KWAKU Administration Lisinopril 40 mg 12/30/15 10:00 02/14/17 10:00 Prinivil GT 40 mg DAILY KWAKU Administration Metoprolol Tartrate 100 mg 02/12/17 10:00 02/14/17 10:00 Lopressor - GT 100 mg DAILY KWAKU Administration Multi-Ingredient Lotion 1 applic 11/07/16 11:55 Eucerin (Large Jar) - TP BID PRN DRY SKIN Scopolamine HBr 1 patch 12/10/16 11:00 02/14/17 10:00 Transderm-Scop - TD 1 patch Q72H KWAKU Administration Objective: Vital Signs Period Temp Pulse Resp BP Sys/Santiago Pulse Ox Last 24 Hr 98 F-98.8 F 50-89 20-20 126-151/67-89 98-99 Physical Exam: General: No acute distress Pulm: CTA anteriorly CV: RRR, S1S2 Abd: Soft, non-distended. Normoactive bowel sounds. Peg tube c/d/i Ext: Warm, well-perfused. 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 Plan: Anoxic brain injury- baseline GI bleed HTN DM II - no finger sticks Stage III pressure ulcer 1. Comfort care - Protonix gtt - IV fluids D5NS @100cc/hr - Norvasc 10mg daily - Lisinopril 40mg daily - Metoprolol 100mg bid - Prostat - No blood draws - No BGM checks 2. F/E/N: - Per discussion with daughter on 02/02, it was decided by Carole to stop all feeds 3) Functional quadraplegia CODE STATUS: DNR/DNI Visit type - Emergency Visit Emergency Visit: Yes ED Registration Date: 06/27/15 Care time: The patient presented to the Emergency Department on the above date and was hospitalized for further evaluation of their emergent condition. - New Patient This patient is new to me today: No - Critical Care Critical Care patient: No
[2017-02-14] MEDS: DEXTROSE 5%-0.45% SALINE 1,000 ML IV SCH ×2 (17:49→20:20)
[2017-02-15] MEDS: DEXTROSE 5%-0.45% SALINE 1,000 ML IV SCH (06:36)
[2017-02-15] MEDS: amLODIPine BESYLATE 10 MG TABLET (FP) GT SCH (10:52)
[2017-02-15] MEDS: METOPROLOL TARTRATE 50 MG TABLET (FP) GT SCH (10:52)
[2017-02-15] MEDS: LISINOPRIL 20 MG TABLET (FP) GT SCH (10:52)
[2017-02-15] MEDS: PANTOPRAZOLE SODIUM 100 ML IVPB SCH ×2 (10:52→22:18)
[2017-02-15] MEDS: AMINO ACIDS/PROTEIN HYDROLYS SUGAR-FREE 30 ML PACKET PO SCH (10:52)
--- NOTE | 2017-02-15 13:03 | PN ---
Physical Exam: SUBJECTIVE: Patient seen and examined. Appears at his baseline. No overnight events reported. OBJECTIVE: Vital Signs Period Temp Pulse Resp BP Sys/Santiago Pulse Ox Last 24 Hr 98.2 F-98.7 F 50-98 18-20 126-156/75-98 98 GENERAL: Patient is lethargic, non verbal at baseline HEAD: Normal with no signs of trauma. EYES: PERRL, extraocular movements intact, sclera anicteric, conjunctiva clear. No ptosis. ENT: Ears normal, nares patent, oropharynx clear without exudates, moist mucous membranes. NECK: Trachea midline, full range of motion, supple. LUNGS: Breath sounds equal, clear to auscultation bilaterally, no wheezes, no crackles, no accessory muscle use. HEART: Irregular heart rate 70s ABDOMEN: PEG tube, abdomen soft to light palpation, no facial grimacing on palpation of abdomen, non distended, no signs of infection EXTREMITIES: 2+ pulses, warm, well-perfused, no edema. NEUROLOGICAL: Non verbal, bed bound : condom cath attached to castellano bag draining yellow clear urine PSYCH:lethargic, non verbal SKIN: Healed stage 3 on buttocks Active Medications Generic Name Dose Route Start Last Admin Trade Name Freq PRN Reason Stop Dose Admin Amino Acids 30 ml 06/28/16 10:00 02/15/17 10:52 Prostat Sugar-Free Packet - PO 30 ml DAILY KWAKU Administration Amlodipine Besylate 10 mg 12/30/15 10:00 02/15/17 10:52 Norvasc - GT 10 mg DAILY KWAKU Administration Dextrose/Sodium Chloride 1,000 mls @ 100 mls/hr 02/02/17 15:00 02/15/17 06:36 D5-1/2ns - IV 100 mls/hr ASDIR KWAKU Administration Pantoprazole Sodium 100 mls @ 200 mls/hr 02/09/17 22:00 02/15/17 10:52 Protonix 40mg Ivpb (Pre-Docked) IVPB 200 mls/hr BID KWAKU Administration Lisinopril 40 mg 12/30/15 10:00 02/15/17 10:52 Prinivil GT 40 mg DAILY KWAKU Administration Metoprolol Tartrate 100 mg 02/12/17 10:00 02/15/17 10:52 Lopressor - GT 100 mg DAILY KWAKU Administration Multi-Ingredient Lotion 1 applic 11/07/16 11:55 Eucerin (Large Jar) - TP BID PRN DRY SKIN Scopolamine HBr 1 patch 12/10/16 11:00 02/14/17 10:00 Transderm-Scop - TD 1 patch Q72H KWAKU Administration ASSESSMENT/PLAN: Patient is comfort care only as per family wishes GI Bleed - resolved Anoxic brain injury- @ baseline Assessment/Plan: Comfort Care only Protonix 40mg BID for GI bleed prophylaxis On D5 1/2 NS @ 100cc/h4 Continue Norvasc 10mg daily, Lisonpril 40mg daily, Metoprolol 100mg daily On Prostat F.E.N. NPO - No further tube feeds, on Protonix BID, d5 1/2 NS @ 100, Functional quadraplegia Prophylaxis: DVT: SCDs - both legs. No AC: contraindicated secondary to GI bleed GI Regimen: on Protonix 40mg BID He is bed bound and a total care Disposition: DNR/DNI. Comfort care only as per family wishes. Visit type - Emergency Visit Emergency Visit: Yes ED Registration Date: 06/27/15 Care time: The patient presented to the Emergency Department on the above date and was hospitalized for further evaluation of their emergent condition. - New Patient This patient is new to me today: No - Critical Care Critical Care patient: No - Discharge Referral Referred to [facility] Med P.C.: No
[2017-02-16] MEDS: DEXTROSE 5%-0.45% SALINE 1,000 ML IV SCH ×2 (06:25→16:14)
[2017-02-16] MEDS: METOPROLOL TARTRATE 50 MG TABLET (FP) GT SCH (11:11)
[2017-02-16] MEDS: AMINO ACIDS/PROTEIN HYDROLYS SUGAR-FREE 30 ML PACKET PO SCH (11:12)
[2017-02-16] MEDS: PANTOPRAZOLE SODIUM 100 ML IVPB SCH ×2 (11:12→21:47)
[2017-02-16] MEDS: LISINOPRIL 20 MG TABLET (FP) GT SCH (11:12)
[2017-02-16] MEDS: amLODIPine BESYLATE 10 MG TABLET (FP) GT SCH (11:12)
--- NOTE | 2017-02-16 13:13 | PN ---
Physical Exam: SUBJECTIVE: Patient seen and examined at the bedside. Appears comfortable at rest OBJECTIVE: In no acute distress, appears comfortable @ rest. Vital Signs Period Temp Pulse Resp BP Sys/Santiago Pulse Ox Last 24 Hr 98.2 F-98.8 F 52-72 18-20 136-146/75-88 98 GENERAL: Patient is lethargic, non verbal at baseline HEAD: Normal with no signs of trauma. EYES: PERRL, extraocular movements intact, sclera anicteric, conjunctiva clear. No ptosis. ENT: Ears normal, nares patent, oropharynx clear without exudates, moist mucous membranes. NECK: Trachea midline, full range of motion, supple. LUNGS: Breath sounds equal, clear to auscultation bilaterally, no wheezes, no crackles, no accessory muscle use. HEART: Irregular heart rate 70s - 80s ABDOMEN: PEG tube, abdomen soft to light palpation, no facial grimacing on palpation of abdomen, non distended, no signs of infection EXTREMITIES: 2+ pulses, warm, well-perfused, no edema. NEUROLOGICAL: Non verbal, bed bound : condom cath attached to castellano bag draining yellow clear urine PSYCH:lethargic, non verbal SKIN: Healed stage 3 on buttocks Active Medications Generic Name Dose Route Start Last Admin Trade Name Freq PRN Reason Stop Dose Admin Amino Acids 30 ml 06/28/16 10:00 02/16/17 11:12 Prostat Sugar-Free Packet - PO 30 ml DAILY KWAKU Administration Amlodipine Besylate 10 mg 12/30/15 10:00 02/16/17 11:12 Norvasc - GT 10 mg DAILY KWAKU Administration Dextrose/Sodium Chloride 1,000 mls @ 100 mls/hr 02/02/17 15:00 02/16/17 06:25 D5-1/2ns - IV 100 mls/hr ASDIR KWAKU Administration Pantoprazole Sodium 100 mls @ 200 mls/hr 02/09/17 22:00 02/16/17 11:12 Protonix 40mg Ivpb (Pre-Docked) IVPB 200 mls/hr BID KWAKU Administration Lisinopril 40 mg 12/30/15 10:00 02/16/17 11:12 Prinivil GT 40 mg DAILY KWAKU Administration Metoprolol Tartrate 100 mg 02/12/17 10:00 02/16/17 11:11 Lopressor - GT 100 mg DAILY KWAKU Administration Multi-Ingredient Lotion 1 applic 11/07/16 11:55 Eucerin (Large Jar) - TP BID PRN DRY SKIN Scopolamine HBr 1 patch 12/10/16 11:00 02/14/17 10:00 Transderm-Scop - TD 1 patch Q72H KWAKU Administration ASSESSMENT/PLAN: Patient is comfort care only as per family wishes GI Bleed - resolved/continue to monitor closely Anoxic brain injury- @ baseline Assessment/Plan: Comfort Care Protonix 40mg BID for GI bleed prophylaxis On D5 1/2 NS @ 100cc/h4 Continue Norvasc 10mg daily, Lisonpril 40mg daily, Metoprolol 100mg daily On Prostat No capillary gluc checks, no lab work, no further blood draws or blood transfusions F.E.N. NPO - No further PEG tube feeds, on Protonix BID, d5 1/2 NS @ 100, Functional quadraplegia Prophylaxis: DVT: SCDs - both legs. No AC: contraindicated secondary to GI bleed GI Regimen: on Protonix 40mg BID He is bed bound and a total care Disposition: DNR/DNI. Comfort care only as per family wishes. Visit type - Emergency Visit Emergency Visit: Yes ED Registration Date: 06/27/15 Care time: The patient presented to the Emergency Department on the above date and was hospitalized for further evaluation of their emergent condition. - New Patient This patient is new to me today: No - Critical Care Critical Care patient: No - Discharge Referral Referred to [facility] Med P.C.: No
[2017-02-17] MEDS: amLODIPine BESYLATE 10 MG TABLET (FP) GT SCH (12:26)
[2017-02-17] MEDS: PANTOPRAZOLE SODIUM 100 ML IVPB SCH ×2 (12:26→22:28)
[2017-02-17] MEDS: AMINO ACIDS/PROTEIN HYDROLYS SUGAR-FREE 30 ML PACKET PO SCH (12:26)
[2017-02-17] MEDS: METOPROLOL TARTRATE 50 MG TABLET (FP) GT SCH (12:26)
[2017-02-17] MEDS: LISINOPRIL 20 MG TABLET (FP) GT SCH (12:26)
[2017-02-17] MEDS: SCOPOLAMINE HYDROBROMIDE 1 PATCH PATCH.TD72 TD SCH (12:26)
--- NOTE | 2017-02-17 14:53 | PN ---
Physical Exam: SUBJECTIVE: Patient seen and examined. Appears at his baseline OBJECTIVE: DNR/DNI Vital Signs Period Temp Pulse Resp BP Sys/Santiago Pulse Ox Last 24 Hr 98.2 F-98.7 F 79-84 18-20 147-148/75-99 98 GENERAL: Patient is lethargic, non verbal at baseline HEAD: Normal with no signs of trauma. EYES: PERRL, extraocular movements intact, sclera anicteric, conjunctiva clear. No ptosis. ENT: Ears normal, nares patent, oropharynx clear without exudates, moist mucous membranes. NECK: Trachea midline, full range of motion, supple. LUNGS: Breath sounds equal, clear to auscultation bilaterally, no wheezes, no crackles, no accessory muscle use. HEART: Irregular heart rate 70s - 80s ABDOMEN: PEG tube, abdomen soft to light palpation, no facial grimacing on palpation of abdomen, non distended, no signs of infection EXTREMITIES: 2+ pulses, warm, well-perfused, no edema. NEUROLOGICAL: Non verbal, bed bound : condom cath attached to castellano bag draining yellow clear urine PSYCH:lethargic, non verbal SKIN: Healed stage 3 on buttocks Active Medications Generic Name Dose Route Start Last Admin Trade Name Freq PRN Reason Stop Dose Admin Amino Acids 30 ml 06/28/16 10:00 02/17/17 12:26 Prostat Sugar-Free Packet - PO 30 ml DAILY KWAKU Administration Amlodipine Besylate 10 mg 12/30/15 10:00 02/17/17 12:26 Norvasc - GT 10 mg DAILY KWAKU Administration Dextrose/Sodium Chloride 1,000 mls @ 100 mls/hr 02/02/17 15:00 02/16/17 16:14 D5-1/2ns - IV 100 mls/hr ASDIR KWAKU Administration Pantoprazole Sodium 100 mls @ 200 mls/hr 02/09/17 22:00 02/17/17 12:26 Protonix 40mg Ivpb (Pre-Docked) IVPB 200 mls/hr BID KWAKU Administration Lisinopril 40 mg 12/30/15 10:00 02/17/17 12:26 Prinivil GT 40 mg DAILY KWAKU Administration Metoprolol Tartrate 100 mg 02/12/17 10:00 02/17/17 12:26 Lopressor - GT 100 mg DAILY KWAKU Administration Multi-Ingredient Lotion 1 applic 01/10/17 11:55 Eucerin (Large Jar) - TP BID PRN DRY SKIN Scopolamine HBr 1 patch 12/10/16 11:00 02/17/17 12:26 Transderm-Scop - TD 1 patch Q72H KWAKU Administration ASSESSMENT/PLAN: Patient is comfort care only as per family wishes GI Bleed - resolved/continue to monitor closely Anoxic brain injury- @ baseline Assessment/Plan: Comfort Care Protonix 40mg BID for GI bleed prophylaxis On D5 1/2 NS @ 100cc/h4 Continue Norvasc 10mg daily, Lisonpril 40mg daily, Metoprolol 100mg daily On Prostat No capillary gluc checks, no lab work, no further blood draws or blood transfusions F.E.N. NPO - No further PEG tube feeds, on Protonix BID, d5 1/2 NS @ 100, Functional quadraplegia Prophylaxis: DVT: SCDs - both legs. No AC: contraindicated secondary to GI bleed GI Regimen: on Protonix 40mg BID He is bed bound and a total care Disposition: DNR/DNI. Comfort care only as per family wishes. Visit type - Emergency Visit Emergency Visit: Yes ED Registration Date: 06/27/15 Care time: The patient presented to the Emergency Department on the above date and was hospitalized for further evaluation of their emergent condition. - New Patient This patient is new to me today: No - Critical Care Critical Care patient: No - Discharge Referral Referred to [facility] Med P.C.: No
[2017-02-18] MEDS: DEXTROSE 5%-0.45% SALINE 1,000 ML IV SCH ×2 (03:11→16:00)
[2017-02-18] MEDS: LISINOPRIL 20 MG TABLET (FP) GT SCH (11:26)
[2017-02-18] MEDS: METOPROLOL TARTRATE 50 MG TABLET (FP) GT SCH (11:26)
[2017-02-18] MEDS: amLODIPine BESYLATE 10 MG TABLET (FP) GT SCH (11:26)
[2017-02-18] MEDS: AMINO ACIDS/PROTEIN HYDROLYS SUGAR-FREE 30 ML PACKET PO SCH (11:27)
[2017-02-18] MEDS: PANTOPRAZOLE SODIUM 100 ML IVPB SCH ×2 (11:27→21:29)
--- NOTE | 2017-02-18 13:22 | PN ---
Physical Exam: SUBJECTIVE: Patient seen and examined. Appears @ his baseline. no overnight events reported OBJECTIVE: Vital Signs Period Temp Pulse Resp BP Sys/Santiago Pulse Ox Last 24 Hr 98 F-98.7 F 55-76 18-20 137-161/72-81 97-98 GENERAL: Patient is lethargic, non verbal at baseline HEAD: Normal with no signs of trauma. EYES: PERRL, extraocular movements intact, sclera anicteric, conjunctiva clear. No ptosis. ENT: Ears normal, nares patent, oropharynx clear without exudates, moist mucous membranes. NECK: Trachea midline, full range of motion, supple. LUNGS: Breath sounds equal, clear to auscultation bilaterally, no wheezes, no crackles, no accessory muscle use. HEART: Irregular heart rate 50s-70s ABDOMEN: PEG tube, abdomen soft to light palpation, no facial grimacing on palpation of abdomen, non distended, no signs of infection EXTREMITIES: 2+ pulses, warm, well-perfused, no edema. NEUROLOGICAL: Non verbal, bed bound : condom cath attached to castellano bag draining yellow clear urine PSYCH:lethargic, non verbal SKIN: Healed stage 3 on buttocks Active Medications Generic Name Dose Route Start Last Admin Trade Name Freq PRN Reason Stop Dose Admin Amino Acids 30 ml 06/28/16 10:00 02/18/17 11:27 Prostat Sugar-Free Packet - PO 30 ml DAILY KWAKU Administration Amlodipine Besylate 10 mg 12/30/15 10:00 02/18/17 11:26 Norvasc - GT 10 mg DAILY KWAKU Administration Dextrose/Sodium Chloride 1,000 mls @ 100 mls/hr 02/02/17 15:00 02/18/17 03:11 D5-1/2ns - IV 100 mls/hr ASDIR KWAKU Administration Pantoprazole Sodium 100 mls @ 200 mls/hr 02/09/17 22:00 02/18/17 11:27 Protonix 40mg Ivpb (Pre-Docked) IVPB 200 mls/hr BID KWAKU Administration Lisinopril 40 mg 12/30/15 10:00 02/18/17 11:26 Prinivil GT 40 mg DAILY KWAKU Administration Metoprolol Tartrate 100 mg 02/12/17 10:00 02/18/17 11:26 Lopressor - GT 100 mg DAILY KWAKU Administration Multi-Ingredient Lotion 1 applic 01/10/17 11:55 Eucerin (Large Jar) - TP BID PRN DRY SKIN Scopolamine HBr 1 patch 12/10/16 11:00 02/17/17 12:26 Transderm-Scop - TD 1 patch Q72H KWAKU Administration ASSESSMENT/PLAN: Patient is comfort care only as per family wishes GI Bleed - resolved/continue to monitor closely Anoxic brain injury- @ baseline Assessment/Plan: Comfort Care Protonix 40mg BID for GI bleed prophylaxis On D5 1/2 NS @ 100cc/h4 Continue Norvasc 10mg daily, Lisonpril 40mg daily, Metoprolol 100mg daily On Prostat No capillary gluc checks, no lab work, no further blood draws or blood transfusions F.E.N. NPO - No further PEG tube feeds, on Protonix BID, d5 1/2 NS @ 100, Functional quadraplegia Prophylaxis: DVT: SCDs - both legs. No AC: contraindicated secondary to GI bleed GI Regimen: on Protonix 40mg BID He is bed bound and a total care Disposition: DNR/DNI. Comfort care only as per family wishes. Visit type - Emergency Visit Emergency Visit: Yes ED Registration Date: 06/27/15 Care time: The patient presented to the Emergency Department on the above date and was hospitalized for further evaluation of their emergent condition. - New Patient This patient is new to me today: No - Critical Care Critical Care patient: No - Discharge Referral Referred to [facility] Med P.C.: No
[2017-02-19] MEDS: DEXTROSE 5%-0.45% SALINE 1,000 ML IV SCH ×4 (02:15→22:38)
--- NOTE | 2017-02-19 11:44 | PN ---
Physical Exam: SUBJECTIVE: Patient seen and examined. OBJECTIVE: Vital Signs Period Temp Pulse Resp BP Sys/Santiago Pulse Ox Last 24 Hr 98.6 F-99 F 52-80 18-20 139-144/70-87 95 GENERAL/NEURO: Eyes open. Non-verbal. Does not follow commands. LUNGS: Regular, unlabored respirations HEART: Regular rate and rhythm, S1, S2 without murmur, rub or gallop. ABDOMEN: Soft, nontender, nondistended EXTREMITIES: 2+ pulses, warm, well-perfused, no edema. Active Medications Generic Name Dose Route Start Last Admin Trade Name Freq PRN Reason Stop Dose Admin Amino Acids 30 ml 06/28/16 10:00 02/18/17 11:27 Prostat Sugar-Free Packet - PO 30 ml DAILY KWAKU Administration Amlodipine Besylate 10 mg 12/30/15 10:00 02/18/17 11:26 Norvasc - GT 10 mg DAILY KWAKU Administration Dextrose/Sodium Chloride 1,000 mls @ 100 mls/hr 02/02/17 15:00 02/19/17 02:15 D5-1/2ns - IV 100 mls/hr ASDIR KWAKU Administration Pantoprazole Sodium 100 mls @ 200 mls/hr 02/09/17 22:00 02/18/17 21:29 Protonix 40mg Ivpb (Pre-Docked) IVPB 200 mls/hr BID KWAKU Administration Lisinopril 40 mg 12/30/15 10:00 02/18/17 11:26 Prinivil GT 40 mg DAILY KWAKU Administration Metoprolol Tartrate 100 mg 02/12/17 10:00 02/18/17 11:26 Lopressor - GT 100 mg DAILY KWAKU Administration Multi-Ingredient Lotion 1 applic 11/07/16 11:55 Eucerin (Large Jar) - TP BID PRN DRY SKIN Scopolamine HBr 1 patch 12/10/16 11:00 02/17/17 12:26 Transderm-Scop - TD 1 patch Q72H KWAKU Administration ASSESSMENT/PLAN 75 year old male with PMHx of HTN, IDDM, inguinal hernia who presented to the ED with diverticular bleed s/p right hemicolectomy with 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 Anoxic brain injury- baseline GI bleed HTN DM II - no finger sticks Stage III pressure ulcer 1. Comfort care - Protonix gtt - IV fluids D5NS @100cc/hr - Norvasc 10mg daily - Lisinopril 40mg daily - Metoprolol 100mg daily - Prostat - No blood draws - No BGM checks 2. F/E/N: - Per discussion with daughter on 02/02, it was decided by Carole to stop all feeds 3) Functional quadraplegia CODE STATUS: DNR/DNI Visit type - Emergency Visit Emergency Visit: Yes ED Registration Date: 06/27/15 Care time: The patient presented to the Emergency Department on the above date and was hospitalized for further evaluation of their emergent condition. - New Patient This patient is new to me today: No - Critical Care Critical Care patient: No
[2017-02-19] MEDS: METOPROLOL TARTRATE 50 MG TABLET (FP) GT SCH (12:08)
[2017-02-19] MEDS: PANTOPRAZOLE SODIUM 100 ML IVPB SCH ×2 (12:08→22:39)
[2017-02-19] MEDS: LISINOPRIL 20 MG TABLET (FP) GT SCH (12:08)
[2017-02-19] MEDS: amLODIPine BESYLATE 10 MG TABLET (FP) GT SCH (12:08)
[2017-02-19] MEDS: AMINO ACIDS/PROTEIN HYDROLYS SUGAR-FREE 30 ML PACKET PO SCH (12:15)
[2017-02-20] MEDS: DEXTROSE 5%-0.45% SALINE 1,000 ML IV SCH ×3 (11:11→21:29)
[2017-02-20] MEDS: SCOPOLAMINE HYDROBROMIDE 1 PATCH PATCH.TD72 TD SCH (11:12)
[2017-02-20] MEDS: METOPROLOL TARTRATE 50 MG TABLET (FP) GT SCH (11:12)
[2017-02-20] MEDS: amLODIPine BESYLATE 10 MG TABLET (FP) GT SCH (11:12)
[2017-02-20] MEDS: LISINOPRIL 20 MG TABLET (FP) GT SCH (11:13)
[2017-02-20] MEDS: PANTOPRAZOLE SODIUM 100 ML IVPB SCH ×2 (11:13→21:30)
[2017-02-20] MEDS: AMINO ACIDS/PROTEIN HYDROLYS SUGAR-FREE 30 ML PACKET PO SCH (15:59)
[2017-02-21] MEDS: DEXTROSE 5%-0.45% SALINE 1,000 ML IV SCH (06:38)
[2017-02-21] MEDS: AMINO ACIDS/PROTEIN HYDROLYS 30 ML LIQUID.PKT PO SCH (10:47)
[2017-02-21] MEDS: amLODIPine BESYLATE 10 MG TABLET (FP) GT SCH (10:47)
[2017-02-21] MEDS: LISINOPRIL 20 MG TABLET (FP) GT SCH (10:47)
[2017-02-21] MEDS: METOPROLOL TARTRATE 50 MG TABLET (FP) GT SCH (10:47)
[2017-02-21] MEDS: PANTOPRAZOLE SODIUM 100 ML IVPB SCH ×2 (10:47→21:07)
[2017-02-22] MEDS: DEXTROSE 5%-0.45% SALINE 1,000 ML IV SCH (05:25)
--- NOTE | 2017-02-22 10:11 | PN ---
Physical Exam: SUBJECTIVE: Patient seen and examined OBJECTIVE: Vital Signs Period Temp Pulse Resp BP Sys/Santiago Pulse Ox Last 24 Hr 97.5 F-99 F 66-73 18-20 132-146/77-90 97 GENERAL/NEURO: Eyes open. Non-verbal. Does not follow commands. There are no signs of pain or distress. LUNGS: Regular, unlabored respirations; short periods of apnea observed HEART: Regular rate and rhythm, S1, S2 without murmur, rub or gallop. ABDOMEN: Soft, nontender, nondistended EXTREMITIES: 2+ pulses, warm, well-perfused, no edema. Active Medications Generic Name Dose Route Start Last Admin Trade Name Freq PRN Reason Stop Dose Admin Amino Acids 30 ml 02/20/17 15:23 02/21/17 10:47 Prosource No Carb Liquid Pkt PO 30 ml DAILY KWAKU Administration Amlodipine Besylate 10 mg 12/30/15 10:00 02/21/17 10:47 Norvasc - GT 10 mg DAILY KWAKU Administration Dextrose/Sodium Chloride 1,000 mls @ 100 mls/hr 02/02/17 15:00 02/22/17 05:25 D5-1/2ns - IV 100 mls/hr ASDIR KWAKU Administration Pantoprazole Sodium 100 mls @ 200 mls/hr 02/09/17 22:00 02/21/17 21:07 Protonix 40mg Ivpb (Pre-Docked) IVPB 200 mls/hr BID KWAKU Administration Lisinopril 40 mg 12/30/15 10:00 02/21/17 10:47 Prinivil GT 40 mg DAILY KWAKU Administration Metoprolol Tartrate 100 mg 02/12/17 10:00 02/21/17 10:47 Lopressor - GT 100 mg DAILY KWAKU Administration Multi-Ingredient Lotion 1 applic 11/07/16 11:55 Eucerin (Large Jar) - TP BID PRN DRY SKIN Scopolamine HBr 1 patch 12/10/16 11:00 02/20/17 11:12 Transderm-Scop - TD 1 patch Q72H KWAKU Administration ASSESSMENT/PLAN Hypertension --BP is stable on current anti-hypertensive regimen Stage III pressure ulcers buttocks, healed --will continue to address any skin issues as this is non-invasive Lower GI bleed --no further episodes --protonix IVPB BID IDDM --no further fingersticks; no injections F/E/N Fluids/Nutrition: after discussion with Rev. Jung Alaniz and the hospitalist team, we are of the view that there is no medical contraindication to restarting tube feeds. The tube feeds were held when the patient developed acute and prolonged lower GI bleeding. The bleeding has resolved and not recurred. There is, therefore, no medical contraindication to feeding the patient now. The team has reviewed the wishes of the patient's daughter. She agreed to no tube feeds due to the medical contraindication. She did not want nutrition held as part of comfort care. We will therefore resume tube feeds today. Dispo: DNR/DNI. Comfort care only. Visit type - Emergency Visit Emergency Visit: Yes ED Registration Date: 06/27/15 Care time: The patient presented to the Emergency Department on the above date and was hospitalized for further evaluation of their emergent condition. - New Patient This patient is new to me today: No - Critical Care Critical Care patient: No
[2017-02-22] MEDS: AMINO ACIDS/PROTEIN HYDROLYS 30 ML LIQUID.PKT PO SCH (11:27)
[2017-02-22] MEDS: LISINOPRIL 20 MG TABLET (FP) GT SCH (11:27)
[2017-02-22] MEDS: METOPROLOL TARTRATE 50 MG TABLET (FP) GT SCH (11:27)
[2017-02-22] MEDS: PANTOPRAZOLE SODIUM 100 ML IVPB SCH ×2 (11:27→21:34)
[2017-02-22] MEDS: amLODIPine BESYLATE 10 MG TABLET (FP) GT SCH (11:27)
[2017-02-23] MEDS: DEXTROSE 5%-0.45% SALINE 1,000 ML IV SCH ×2 (02:04→13:40)
--- NOTE | 2017-02-23 09:36 | PN ---
Physical Exam: SUBJECTIVE: Patient seen and examined OBJECTIVE: Vital Signs Period Temp Pulse Resp BP Sys/Santiago Pulse Ox Last 24 Hr 98.3 F-98.8 F 52-87 18-20 132-163/68-98 97 GENERAL/NEURO: Eyes open. Non-verbal. Does not follow commands. LUNGS: Takes 11-12 unlabored breaths followed by 20 seconds of apnea; cycle repeats HEART: Regular rate and rhythm, S1, S2 without murmur, rub or gallop. ABDOMEN: Soft, nontender, nondistended; tube feeds running EXTREMITIES: 2+ pulses, warm, well-perfused, no edema. Active Medications Generic Name Dose Route Start Last Admin Trade Name Freq PRN Reason Stop Dose Admin Amino Acids 30 ml 02/20/17 15:23 02/22/17 11:27 Prosource No Carb Liquid Pkt PO 30 ml DAILY KWAKU Administration Amlodipine Besylate 10 mg 12/30/15 10:00 02/22/17 11:27 Norvasc - GT 10 mg DAILY KWAKU Administration Dextrose/Sodium Chloride 1,000 mls @ 100 mls/hr 02/02/17 15:00 02/23/17 02:04 D5-1/2ns - IV 100 mls/hr ASDIR KWAKU Administration Pantoprazole Sodium 100 mls @ 200 mls/hr 02/09/17 22:00 02/22/17 21:34 Protonix 40mg Ivpb (Pre-Docked) IVPB 200 mls/hr BID KWAKU Administration Lisinopril 40 mg 12/30/15 10:00 02/22/17 11:27 Prinivil GT 40 mg DAILY KWAKU Administration Metoprolol Tartrate 100 mg 02/12/17 10:00 02/22/17 11:27 Lopressor - GT 100 mg DAILY KWAKU Administration Multi-Ingredient Lotion 1 applic 11/07/16 11:55 Eucerin (Large Jar) - TP BID PRN DRY SKIN Scopolamine HBr 1 patch 12/10/16 11:00 02/20/17 11:12 Transderm-Scop - TD 1 patch Q72H KWAKU Administration ASSESSMENT/PLAN: ASSESSMENT/PLAN Hypertension --BP is stable on current anti-hypertensive regimen Stage III pressure ulcers buttocks, healed --will continue to address any skin issues as this is non-invasive Lower GI bleed --no further episodes --protonix IVPB BID IDDM --no further fingersticks; no injections F/E/N: Tube feeds resumed yesterday; will keep at 10cc's per hour today and titrate to 20cc's per hour tomorrow; no melena observed Dispo: DNR/DNI. Comfort measures. Visit type - Emergency Visit Emergency Visit: Yes ED Registration Date: 06/27/15 Care time: The patient presented to the Emergency Department on the above date and was hospitalized for further evaluation of their emergent condition. - New Patient This patient is new to me today: No - Critical Care Critical Care patient: No
[2017-02-23] MEDS: AMINO ACIDS/PROTEIN HYDROLYS 30 ML LIQUID.PKT PO SCH (12:07)
[2017-02-23] MEDS: LISINOPRIL 20 MG TABLET (FP) GT SCH (12:08)
[2017-02-23] MEDS: METOPROLOL TARTRATE 50 MG TABLET (FP) GT SCH (12:08)
[2017-02-23] MEDS: PANTOPRAZOLE SODIUM 100 ML IVPB SCH ×2 (12:08→21:22)
[2017-02-23] MEDS: amLODIPine BESYLATE 10 MG TABLET (FP) GT SCH (12:09)
[2017-02-23] MEDS: SCOPOLAMINE HYDROBROMIDE 1 PATCH PATCH.TD72 TD SCH (12:09)
[2017-02-24] MEDS: DEXTROSE 5%-0.45% SALINE 1,000 ML IV SCH ×2 (03:48→15:30)
[2017-02-24] MEDS: METOPROLOL TARTRATE 50 MG TABLET (FP) GT SCH (10:33)
[2017-02-24] MEDS: amLODIPine BESYLATE 10 MG TABLET (FP) GT SCH (10:33)
[2017-02-24] MEDS: LISINOPRIL 20 MG TABLET (FP) GT SCH (10:33)
[2017-02-24] MEDS: AMINO ACIDS/PROTEIN HYDROLYS 30 ML LIQUID.PKT PO SCH (10:33)
[2017-02-24] MEDS: PANTOPRAZOLE SODIUM 100 ML IVPB SCH ×2 (10:34→23:15)
--- NOTE | 2017-02-24 17:13 | PN ---
Physical Exam: SUBJECTIVE: Patient seen and examined at bedside. Nurse reports non-productive cough. OBJECTIVE: Vital Signs Period Temp Pulse Resp BP Sys/Santiago Pulse Ox Last 24 Hr 98.2 F-99.2 F 60-77 18-20 129-142/70-76 99-99 GENERAL/NEURO: Eyes open. Non-verbal. Does not follow commands. LUNGS: Breathing unlabored, regular, CTA HEART: Regular rate and rhythm, S1, S2 without murmur, rub or gallop. ABDOMEN: Soft, nontender, nondistended; tube feeds running EXTREMITIES: 2+ pulses, warm, well-perfused, no edema. Active Medications Generic Name Dose Route Start Last Admin Trade Name Freq PRN Reason Stop Dose Admin Amino Acids 30 ml 02/20/17 15:23 02/24/17 10:33 Prosource No Carb Liquid Pkt PO 30 ml DAILY KWAKU Administration Amlodipine Besylate 10 mg 12/30/15 10:00 02/24/17 10:33 Norvasc - GT 10 mg DAILY KWAKU Administration Pantoprazole Sodium 100 mls @ 200 mls/hr 02/09/17 22:00 02/24/17 10:34 Protonix 40mg Ivpb (Pre-Docked) IVPB 200 mls/hr BID KWAKU Administration Dextrose/Sodium Chloride 1,000 mls @ 75 mls/hr 02/24/17 15:07 D5-1/2ns - IV ASDIR KWAKU Lisinopril 40 mg 12/30/15 10:00 02/24/17 10:33 Prinivil GT 40 mg DAILY KWAKU Administration Metoprolol Tartrate 100 mg 02/12/17 10:00 02/24/17 10:33 Lopressor - GT 100 mg DAILY KWAKU Administration Multi-Ingredient Lotion 1 applic 11/07/16 11:55 Eucerin (Large Jar) - TP BID PRN DRY SKIN Scopolamine HBr 1 patch 12/10/16 11:00 02/23/17 12:09 Transderm-Scop - TD 1 patch Q72H KWAKU Administration ASSESSMENT/PLAN Cough --cough started after resuming tube feeds; will get CXR to make sure not volume overload; lowered IV fluids to 75mL/hr; will continue to titrate off IV fluids as we increase tube feeds and free water Hypertension --BP is stable on current anti-hypertensive regimen Stage III pressure ulcers buttocks, healed --will continue to address any skin issues as this is non-invasive Lower GI bleed --no further episodes --protonix IVPB BID IDDM --no further fingersticks; no injections F/E/N: Tube feeds resumed on 02/22 @ 10mL/hr; increase to 20mL today with 5mL hourly free water flushes; continue IV NS @ 75mL/hr Dispo: DNR/DNI. Comfort measures. Visit type - Emergency Visit Emergency Visit: Yes ED Registration Date: 06/27/15 Care time: The patient presented to the Emergency Department on the above date and was hospitalized for further evaluation of their emergent condition. - New Patient This patient is new to me today: No - Critical Care Critical Care patient: No
[2017-02-25] MEDS: DEXTROSE 5%-0.45% SALINE 1,000 ML IV SCH ×3 (07:03→21:46)
[2017-02-25] MEDS: LISINOPRIL 20 MG TABLET (FP) GT SCH (11:00)
[2017-02-25] MEDS: PANTOPRAZOLE SODIUM 100 ML IVPB SCH ×2 (11:00→21:46)
[2017-02-25] MEDS: AMINO ACIDS/PROTEIN HYDROLYS 30 ML LIQUID.PKT PO SCH (11:00)
[2017-02-25] MEDS: amLODIPine BESYLATE 10 MG TABLET (FP) GT SCH (11:00)
[2017-02-25] MEDS: METOPROLOL TARTRATE 50 MG TABLET (FP) GT SCH (11:00)
--- NOTE | 2017-02-25 13:57 | PN ---
Physical Exam: SUBJECTIVE: Patient seen and examined. OBJECTIVE: Vital Signs Period Temp Pulse Resp BP Sys/Santiago Pulse Ox Last 24 Hr 98.0 F-98.7 F 60-87 18-20 126-145/70-89 99 GENERAL/NEURO: Eyes open. Non-verbal. Does not follow commands. LUNGS: Breathing unlabored, regular, CTA HEART: Regular rate and rhythm, S1, S2 without murmur, rub or gallop. ABDOMEN: Soft, nontender, nondistended; tube feeds running EXTREMITIES: 2+ pulses, warm, well-perfused, no edema. Active Medications Generic Name Dose Route Start Last Admin Trade Name Freq PRN Reason Stop Dose Admin Amino Acids 30 ml 02/20/17 15:23 02/25/17 11:00 Prosource No Carb Liquid Pkt PO 30 ml DAILY KWAKU Administration Amlodipine Besylate 10 mg 12/30/15 10:00 02/25/17 11:00 Norvasc - GT 10 mg DAILY KWAKU Administration Pantoprazole Sodium 100 mls @ 200 mls/hr 02/09/17 22:00 02/25/17 11:00 Protonix 40mg Ivpb (Pre-Docked) IVPB 200 mls/hr BID KWAKU Administration Dextrose/Sodium Chloride 1,000 mls @ 75 mls/hr 02/24/17 15:07 02/25/17 07:03 D5-1/2ns - IV 75 mls/hr ASDIR KWAKU Administration Lisinopril 40 mg 12/30/15 10:00 02/25/17 11:00 Prinivil GT 40 mg DAILY KWAKU Administration Metoprolol Tartrate 100 mg 02/12/17 10:00 02/25/17 11:00 Lopressor - GT 100 mg DAILY KWAKU Administration Multi-Ingredient Lotion 1 applic 11/07/16 11:55 Eucerin (Large Jar) - TP BID PRN DRY SKIN Scopolamine HBr 1 patch 12/10/16 11:00 02/23/17 12:09 Transderm-Scop - TD 1 patch Q72H KWAKU Administration ASSESSMENT/PLAN Cough --02/24 CXR shows progressive infiltrative changes R>L --no fever --no antibiotics Hypertension --BP is stable on current anti-hypertensive regimen Stage III pressure ulcers buttocks, healed --will continue to address any skin issues as this is non-invasive Lower GI bleed --no further episodes --protonix IVPB BID IDDM --no further fingersticks; no injections F/E/N: Tube feeds resumed on 02/22 @ 10mL/hr; increase to 20mL with 80mL hourly free water flushes; d/c IV fluids Dispo: DNR/DNI. Comfort measures. Visit type - Emergency Visit Emergency Visit: Yes ED Registration Date: 06/27/15 Care time: The patient presented to the Emergency Department on the above date and was hospitalized for further evaluation of their emergent condition. - New Patient This patient is new to me today: No - Critical Care Critical Care patient: No
[2017-02-26] MEDS: METOPROLOL TARTRATE 50 MG TABLET (FP) GT SCH (11:25)
[2017-02-26] MEDS: PANTOPRAZOLE SODIUM 100 ML IVPB SCH ×2 (11:25→22:24)
[2017-02-26] MEDS: amLODIPine BESYLATE 10 MG TABLET (FP) GT SCH (11:25)
[2017-02-26] MEDS: SCOPOLAMINE HYDROBROMIDE 1 PATCH PATCH.TD72 TD SCH (11:25)
[2017-02-26] MEDS: AMINO ACIDS/PROTEIN HYDROLYS 30 ML LIQUID.PKT PO SCH (11:25)
[2017-02-26] MEDS: LISINOPRIL 20 MG TABLET (FP) GT SCH (11:25)
[2017-02-26] MEDS: DEXTROSE 5%-0.45% SALINE 1,000 ML IV SCH ×2 (11:26→17:32)
--- NOTE | 2017-02-26 16:52 | PN ---
Physical Exam: SUBJECTIVE: Patient seen and examined. Nurse reports o acute change. Noted with moist cough at times, afebrile. Pt tracks with eyes at times, shakes head no at times, but not in response to questions. Pt remains nonverbal. Does not follow commands. OBJECTIVE: Vital Signs 3 Period Temp Pulse Resp BP Sys/Santiago Pulse Ox Last 24 Hr 97.7 F-99.3 F 66-84 18-20 135-149/69-80 98-98 GENERAL: The patient is awake, alert, and disoriented, in no acute distress. HEAD: Normal with no signs of trauma. EYES: PERRL, extraocular movements intact, sclera anicteric, conjunctiva clear. No ptosis. ENT: Ears normal, nares patent, oropharynx clear without exudates, moist mucous membranes. healed tracheostomy site NECK: Trachea midline, full range of motion, supple. LUNGS: Breath sounds equal, clear to auscultation bilaterally, no wheezes, no crackles, no accessory muscle use. HEART: Regular rate and rhythm, S1, S2 without murmur, rub or gallop. ABDOMEN: Soft, nontender, nondistended, normoactive bowel sounds, no guarding, no rebound, no hepatosplenomegaly, no masses. + gtube EXTREMITIES: 2+ pulses, warm, well-perfused, no edema. NEUROLOGICAL: Cranial nerves II through XII grossly intact. Normal speech, gait not observed. PSYCH: Normal mood, normal affect. SKIN: Warm, dry, normal turgor, no rashes or lesions noted. small stage 2 to buttock, covered with allevyn Active Medications 3 Generic Name Dose Route Start Last Admin Trade Name Jaylanq PRN Reason Stop Dose Admin Amino Acids 30 ml 02/20/17 15:23 02/26/17 11:25 Prosource No Carb Liquid Pkt PO 30 ml DAILY KWAKU Administration Amlodipine Besylate 10 mg 12/30/15 10:00 02/26/17 11:25 Norvasc - GT 10 mg DAILY KWAKU Administration Pantoprazole Sodium 100 mls @ 200 mls/hr 02/09/17 22:00 02/26/17 11:25 Protonix 40mg Ivpb (Pre-Docked) IVPB 200 mls/hr BID KWAKU Administration Dextrose/Sodium Chloride 1,000 mls @ 75 mls/hr 02/24/17 15:07 02/26/17 11:26 D5-1/2ns - IV 75 mls/hr ASDIR KWAKU Administration Lisinopril 40 mg 12/30/15 10:00 02/26/17 11:25 Prinivil GT 40 mg DAILY KWAKU Administration Metoprolol Tartrate 100 mg 02/12/17 10:00 02/26/17 11:25 Lopressor - GT 100 mg DAILY KWAKU Administration Multi-Ingredient Lotion 1 applic 11/07/16 11:55 Eucerin (Large Jar) - TP BID PRN DRY SKIN Scopolamine HBr 1 patch 12/10/16 11:00 02/26/17 11:25 Transderm-Scop - TD 1 patch Q72H KWAKU Administration ASSESSMENT/PLAN: 75 year old male with PMHx of HTN, IDDM, inguinal hernia who presented to the ED with diverticular bleed s/p right hemicolectomy with 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 Anoxic brain injury - baseline; comfort measures, no FSBS, blood draws GI bleed - resolved, monitor for recurrence, tube feeds resumed and tolerating well. IVF DC - cont protonix IV HTN - cont amlodipine, metoprolol, lisinopril, BP well controlled with same DM II - no further finger sticks or insulin injections as per comfort care Stage 2 PU sacrum, reopened, small - cont allevyn Functional quadraplegia - due to immobility at increased risk for aspiration pneumonia, Cough - 02/24 CXR shows progressive infiltrative changes R>L - no fever - defer antibiotics at this time F/E/N: Tube feeds resumed on 02/22 @ 10mL/hr; increased to 20mL with 80mL hourly free water flushes; tolerating well. Dispo: DNR/DNI. Comfort measures. Visit type - Emergency Visit Emergency Visit: Yes ED Registration Date: 06/27/15 Care time: The patient presented to the Emergency Department on the above date and was hospitalized for further evaluation of their emergent condition. - New Patient This patient is new to me today: No - Critical Care Critical Care patient: No - Discharge Referral Referred to [facility] No
[2017-02-27] MEDS: amLODIPine BESYLATE 10 MG TABLET (FP) GT SCH (09:43)
[2017-02-27] MEDS: LISINOPRIL 20 MG TABLET (FP) GT SCH (09:43)
[2017-02-27] MEDS: METOPROLOL TARTRATE 50 MG TABLET (FP) GT SCH (09:43)
[2017-02-27] MEDS: AMINO ACIDS/PROTEIN HYDROLYS 30 ML LIQUID.PKT PO SCH (09:43)
[2017-02-27] MEDS: PANTOPRAZOLE SODIUM 100 ML IVPB SCH ×2 (10:32→22:24)
--- NOTE | 2017-02-27 12:14 | PN ---
Progress Note (short form) - Note Progress Note: Subjective: The patient was seen and examined at the bedside, non-verbal. Tolerating room air well Current Medications Generic Name Dose Route Start Last Admin Trade Name Ginette PRN Reason Stop Dose Admin Amino Acids 30 ml 02/20/17 15:23 02/27/17 09:43 Prosource No Carb Liquid Pkt PO 30 ml DAILY KWAKU Administration Amlodipine Besylate 10 mg 12/30/15 10:00 02/27/17 09:43 Norvasc - GT 10 mg DAILY KWAKU Administration Pantoprazole Sodium 100 mls @ 200 mls/hr 02/09/17 22:00 02/27/17 10:32 Protonix 40mg Ivpb (Pre-Docked) IVPB 200 mls/hr BID KWAKU Administration Lisinopril 40 mg 12/30/15 10:00 02/27/17 09:43 Prinivil GT 40 mg DAILY KWAKU Administration Metoprolol Tartrate 100 mg 02/12/17 10:00 02/27/17 09:43 Lopressor - GT 100 mg DAILY KWAKU Administration Multi-Ingredient Lotion 1 applic 11/07/16 11:55 Eucerin (Large Jar) - TP BID PRN DRY SKIN Scopolamine HBr 1 patch 12/10/16 11:00 02/26/17 11:25 Transderm-Scop - TD 1 patch Q72H KWAKU Administration Objective: Vital Signs Period Temp Pulse Resp BP Sys/Santiago Pulse Ox Last 24 Hr 97.7 F-98.9 F 68-76 16-20 122-147/62-83 97-97 Physical Exam: General: No acute distress HEENT: Tracheal stoma Neuro: Opens eyes to verbal stimuli Pulm: CTA anteriorly CV: RRR, S1S2 Abd: Soft, non-distended. Normoactive bowel sounds. Peg tube c/d/i Ext: Warm, well-perfused. 2+ DP/PT bilaterally CBCD WBC 9.2 K/mm3 (4.0-10.0) 02/02/17 07:45 RBC 3.57 M/mm3 (4.00-5.60) L 02/02/17 07:45 Hgb 10.6 GM/dL (11.7-16.9) L 02/02/17 07:45 Hct 31.6 % (35.4-49) L 02/02/17 07:45 MCV 88.4 fl (80-96) 02/02/17 07:45 MCHC 33.4 g/dl (32.0-35.9) 02/02/17 07:45 RDW 15.6 % (11.9-15.9) 02/02/17 07:45 Plt Count 237 K/MM3 (134-434) 02/02/17 07:45 MPV 8.3 fl (7.5-11.1) 02/02/17 07:45 CMP Sodium 142 mmol/L (136-145) 02/02/17 07:45 Potassium 3.3 mmol/L (3.5-5.1) L 02/02/17 07:45 Chloride 105 mmol/L (98-107) 02/02/17 07:45 Carbon Dioxide 25 mmol/L (21-32) 02/02/17 07:45 Anion Gap 12 (8-16) 02/02/17 07:45 BUN < 1 mg/dL (7-18) L* 02/02/17 07:45 Creatinine 0.8 mg/dL (0.7-1.3) 02/02/17 07:45 Creat Clearance w eGFR > 60 (>60) 02/02/17 07:45 Random Glucose 112 mg/dL (74-106) H 02/02/17 07:45 Calcium 9.3 mg/dL (8.5-10.1) 02/02/17 07:45 Total Bilirubin 1.1 mg/dL (0.2-1.0) H D 02/02/17 07:45 AST 12 U/L (15-37) L 02/02/17 07:45 ALT 22 U/L (12-78) 02/02/17 07:45 Alkaline Phosphatase 88 U/L (45-117) 02/02/17 07:45 Total Protein 7.7 g/dl (6.4-8.2) 02/02/17 07:45 Albumin 3.6 g/dl (3.4-5.0) 02/02/17 07:45 CARDIAC ENZYMES Creatine Kinase 62 IU/L (38-174) 06/28/15 09:35 Troponin I 0.07 ng/ml (0.03-0.5) D 07/09/15 05:00 Assessment: 75 year old male with PMHx of HTN, IDDM, inguinal hernia who presented to the ED with diverticular bleed s/p Righ hemicolectomy with 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 Plan: 1. Anoxic brain injury s/p brainstem CVAs - Mental status unchanged 2. Respiratory failure secondary to anoxic brain injury - Cont O2 via room air, NC prn - Trach removed 09/09/16 - Duonebs PRN 3. HTN - Continue lisinopril, amlodipine, lopressor 4. Multiple pressure ulcers - Turn and position q2h - Local wound care 5. IDDM - No fingersticks or insulin per family 6. F/E/N: - Tube feeds resumed on 02/22 7. Prophylaxis: - SCDs bilaterally - No chemical anticoagulation 2/2 recent GI bleed - Functional quadriplegia CODE STATUS: DNR/DNI Visit type - Emergency Visit Emergency Visit: Yes ED Registration Date: 06/27/15 Care time: The patient presented to the Emergency Department on the above date and was hospitalized for further evaluation of their emergent condition. - New Patient This patient is new to me today: No - Critical Care Critical Care patient: No
[2017-02-28] MEDS: amLODIPine BESYLATE 10 MG TABLET (FP) GT SCH (10:52)
[2017-02-28] MEDS: AMINO ACIDS/PROTEIN HYDROLYS 30 ML LIQUID.PKT PO SCH (10:52)
[2017-02-28] MEDS: LISINOPRIL 20 MG TABLET (FP) GT SCH (10:52)
[2017-02-28] MEDS: METOPROLOL TARTRATE 50 MG TABLET (FP) GT SCH (10:52)
[2017-02-28] MEDS: PANTOPRAZOLE SODIUM 100 ML IVPB SCH ×2 (10:53→22:32)
[2017-03-01] MEDS: amLODIPine BESYLATE 10 MG TABLET (FP) GT SCH (12:27)
[2017-03-01] MEDS: LISINOPRIL 20 MG TABLET (FP) GT SCH (12:27)
[2017-03-01] MEDS: METOPROLOL TARTRATE 50 MG TABLET (FP) GT SCH (12:28)
[2017-03-01] MEDS: SCOPOLAMINE HYDROBROMIDE 1 PATCH PATCH.TD72 TD SCH (12:28)
[2017-03-01] MEDS: AMINO ACIDS/PROTEIN HYDROLYS 30 ML LIQUID.PKT PO SCH (12:29)
[2017-03-01] MEDS: PANTOPRAZOLE SODIUM 100 ML IVPB SCH ×2 (12:29→22:05)
--- NOTE | 2017-03-01 12:46 | PN ---
Progress Note (short form) - Note Progress Note: Subjective: The patient was seen and examined at the bedside, non-verbal. Tolerating room air well Current Medications Generic Name Dose Route Start Last Admin Trade Name Ginette PRN Reason Stop Dose Admin Amino Acids 30 ml 02/20/17 15:23 02/27/17 09:43 Prosource No Carb Liquid Pkt PO 30 ml DAILY KWAKU Administration Amlodipine Besylate 10 mg 12/30/15 10:00 02/27/17 09:43 Norvasc - GT 10 mg DAILY KWAKU Administration Pantoprazole Sodium 100 mls @ 200 mls/hr 02/09/17 22:00 02/27/17 22:24 Protonix 40mg Ivpb (Pre-Docked) IVPB 200 mls/hr BID KWAKU Administration Lisinopril 40 mg 12/30/15 10:00 02/27/17 09:43 Prinivil GT 40 mg DAILY KWAKU Administration Metoprolol Tartrate 100 mg 02/12/17 10:00 02/27/17 09:43 Lopressor - GT 100 mg DAILY KWAKU Administration Multi-Ingredient Lotion 1 applic 11/07/16 11:55 Eucerin (Large Jar) - TP BID PRN DRY SKIN Scopolamine HBr 1 patch 12/10/16 11:00 02/26/17 11:25 Transderm-Scop - TD 1 patch Q72H KWAKU Administration Objective: Vital Signs Period Temp Pulse Resp BP Sys/Santiago Pulse Ox Last 24 Hr 98.4 F-98.9 F 63-102 20-20 132-144/49-82 95 Physical Exam: General: No acute distress HEENT: Tracheal stoma Neuro: Opens eyes to verbal stimuli Pulm: CTA anteriorly CV: RRR, S1S2 Abd: Soft, non-distended. Normoactive bowel sounds. Peg tube c/d/i Ext: Warm, well-perfused. 2+ DP/PT bilaterally CBCD WBC 9.2 K/mm3 (4.0-10.0) 02/02/17 07:45 RBC 3.57 M/mm3 (4.00-5.60) L 02/02/17 07:45 Hgb 10.6 GM/dL (11.7-16.9) L 02/02/17 07:45 Hct 31.6 % (35.4-49) L 02/02/17 07:45 MCV 88.4 fl (80-96) 02/02/17 07:45 MCHC 33.4 g/dl (32.0-35.9) 02/02/17 07:45 RDW 15.6 % (11.9-15.9) 02/02/17 07:45 Plt Count 237 K/MM3 (134-434) 02/02/17 07:45 MPV 8.3 fl (7.5-11.1) 02/02/17 07:45 CMP Sodium 142 mmol/L (136-145) 02/02/17 07:45 Potassium 3.3 mmol/L (3.5-5.1) L 02/02/17 07:45 Chloride 105 mmol/L (98-107) 02/02/17 07:45 Carbon Dioxide 25 mmol/L (21-32) 02/02/17 07:45 Anion Gap 12 (8-16) 02/02/17 07:45 BUN < 1 mg/dL (7-18) L* 02/02/17 07:45 Creatinine 0.8 mg/dL (0.7-1.3) 02/02/17 07:45 Creat Clearance w eGFR > 60 (>60) 02/02/17 07:45 Random Glucose 112 mg/dL (74-106) H 02/02/17 07:45 Calcium 9.3 mg/dL (8.5-10.1) 02/02/17 07:45 Total Bilirubin 1.1 mg/dL (0.2-1.0) H D 02/02/17 07:45 AST 12 U/L (15-37) L 02/02/17 07:45 ALT 22 U/L (12-78) 02/02/17 07:45 Alkaline Phosphatase 88 U/L (45-117) 02/02/17 07:45 Total Protein 7.7 g/dl (6.4-8.2) 02/02/17 07:45 Albumin 3.6 g/dl (3.4-5.0) 02/02/17 07:45 CARDIAC ENZYMES Creatine Kinase 62 IU/L (38-174) 06/28/15 09:35 Troponin I 0.07 ng/ml (0.03-0.5) D 07/09/15 05:00 Assessment: 75 year old male with PMHx of HTN, IDDM, inguinal hernia who presented to the ED with diverticular bleed s/p Righ hemicolectomy with 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 Plan: 1. Anoxic brain injury s/p brainstem CVAs - Mental status unchanged 2. Respiratory failure secondary to anoxic brain injury - Cont O2 via room air, NC prn - Trach removed 09/09/16 - Duonebs PRN 3. HTN - Continue lisinopril, amlodipine, lopressor 4. Multiple pressure ulcers - Turn and position q2h - Local wound care 5. IDDM - No fingersticks or insulin per family 6. F/E/N: - Tube feeds resumed on 02/22. Discussed with dietary to increase feeds. Will hold off on increasing today as patient is coughing. Keep head of bed up and hold feeds 30 min prior to laying the patient flat 7. Prophylaxis: - SCDs bilaterally - No chemical anticoagulation 2/2 recent GI bleed - Functional quadriplegia CODE STATUS: DNR/DNI Visit type - Emergency Visit Emergency Visit: Yes ED Registration Date: 06/27/15 Care time: The patient presented to the Emergency Department on the above date and was hospitalized for further evaluation of their emergent condition. - New Patient This patient is new to me today: No - Critical Care Critical Care patient: No
[2017-03-02] MEDS: PANTOPRAZOLE SODIUM 100 ML IVPB SCH ×2 (15:35→22:31)
[2017-03-02] MEDS: METOPROLOL TARTRATE 50 MG TABLET (FP) GT SCH (15:35)
[2017-03-02] MEDS: LISINOPRIL 20 MG TABLET (FP) GT SCH (15:35)
[2017-03-02] MEDS: amLODIPine BESYLATE 10 MG TABLET (FP) GT SCH (15:35)
[2017-03-02] MEDS: AMINO ACIDS/PROTEIN HYDROLYS 30 ML LIQUID.PKT PO SCH (15:35)
--- NOTE | 2017-03-03 10:39 | PN ---
Physical Exam: SUBJECTIVE: Patient seen and examined at bedside. OBJECTIVE: Vital Signs Period Temp Pulse Resp BP Sys/Santiago Pulse Ox Last 24 Hr 97.9 F-98.7 F 64-94 18-20 139-152/77-88 96-96 GENERAL/NEURO: Eyes open. Non-verbal. Does not follow commands. Head rocking. LUNGS: Breathing unlabored, regular, CTA HEART: Regular rate and rhythm, S1, S2 without murmur, rub or gallop. ABDOMEN: +hiccups/spasming 45 x per minute EXTREMITIES: 2+ pulses, warm, well-perfused, no edema. Active Medications Generic Name Dose Route Start Last Admin Trade Name Freq PRN Reason Stop Dose Admin Amlodipine Besylate 10 mg 12/30/15 10:00 03/02/17 15:35 Norvasc - GT 10 mg DAILY KWAKU Administration Dextrose/Sodium Chloride 1,000 mls @ 100 mls/hr 03/03/17 10:45 D5-1/2ns - IV ASDIR KWAKU Lisinopril 40 mg 12/30/15 10:00 03/02/17 15:35 Prinivil GT 40 mg DAILY KWAKU Administration Metoprolol Tartrate 100 mg 02/12/17 10:00 03/02/17 15:35 Lopressor - GT 100 mg DAILY KWAKU Administration Multi-Ingredient Lotion 1 applic 11/07/16 11:55 Eucerin (Large Jar) - TP BID PRN DRY SKIN Pantoprazole Sodium 40 mg 03/03/17 10:45 Protonix Packets For Oral Suspension - NGT DAILY KWAKU Scopolamine HBr 1 patch 12/10/16 11:00 03/01/17 12:28 Transderm-Scop - TD 1 patch Q72H KWAKU Administration ASSESSMENT/PLAN: Hiccups/abdominal spasms --abdominal spasms observed today, constant head rocking, appears uncomfortable --stop tube feeds --restart D51/2NS Hypertension --BP is stable on current anti-hypertensive regimen Stage III pressure ulcers buttocks, healed --will continue to address any skin issues as this is non-invasive Lower GI bleed --no further episodes --switch protonix IV to GT IDDM --no further fingersticks; no injections F/E/N: Not tolerating tube feeds at present; restart IV fluids Dispo: DNR/DNI. Comfort measures. Visit type - Emergency Visit Emergency Visit: Yes ED Registration Date: 06/27/15 Care time: The patient presented to the Emergency Department on the above date and was hospitalized for further evaluation of their emergent condition. - New Patient This patient is new to me today: No - Critical Care Critical Care patient: No
[2017-03-03] MEDS: AMINO ACIDS/PROTEIN HYDROLYS 30 ML LIQUID.PKT PO SCH (12:00)
[2017-03-03] MEDS: PANTOPRAZOLE SODIUM 100 ML IVPB SCH (12:00)
[2017-03-03] MEDS: METOPROLOL TARTRATE 50 MG TABLET (FP) GT SCH (12:15)
[2017-03-03] MEDS: amLODIPine BESYLATE 10 MG TABLET (FP) GT SCH (12:15)
[2017-03-03] MEDS: LISINOPRIL 20 MG TABLET (FP) GT SCH (12:15)
[2017-03-03] MEDS: DEXTROSE 5%-0.45% SALINE 1,000 ML IV SCH ×2 (12:16→22:21)
[2017-03-03] MEDS: PANTOPRAZOLE SOD 40 MG SUSPENSION PACKET NGT SCH (12:16)
[2017-03-04] MEDS: DEXTROSE 5%-0.45% SALINE 1,000 ML IV SCH ×2 (11:18→22:01)
--- NOTE | 2017-03-04 12:00 | PN ---
Physical Exam: SUBJECTIVE: Patient seen and examined OBJECTIVE: Vital Signs Period Temp Pulse Resp BP Sys/Santiago Pulse Ox Last 24 Hr 97.2 F-99.1 F 80-87 18-18 128-142/66-85 97 GENERAL/NEURO: Eyes open. Non-verbal. Does not follow commands. No head rocking. Appears quite calm. LUNGS: Breathing unlabored, regular, CTA HEART: Regular rate and rhythm, S1, S2 without murmur, rub or gallop. ABDOMEN: no hiccups; abdominal spasms almost resolved EXTREMITIES: 2+ pulses, warm, well-perfused, no edema. Active Medications Generic Name Dose Route Start Last Admin Trade Name Freq PRN Reason Stop Dose Admin Amlodipine Besylate 10 mg 12/30/15 10:00 03/03/17 12:15 Norvasc - GT 10 mg DAILY KWAKU Administration Dextrose/Sodium Chloride 1,000 mls @ 100 mls/hr 03/03/17 10:45 03/04/17 11:18 D5-1/2ns - IV 100 mls/hr ASDIR KWAKU Administration Lisinopril 40 mg 12/30/15 10:00 03/03/17 12:15 Prinivil GT 40 mg DAILY KWAKU Administration Metoprolol Tartrate 100 mg 02/12/17 10:00 03/03/17 12:15 Lopressor - GT 100 mg DAILY KWAKU Administration Multi-Ingredient Lotion 1 applic 11/07/16 11:55 Eucerin (Large Jar) - TP BID PRN DRY SKIN Pantoprazole Sodium 40 mg 03/03/17 11:00 03/03/17 12:16 Protonix Packets For Oral Suspension - NGT 40 mg DAILY KWAKU Administration Scopolamine HBr 1 patch 12/10/16 11:00 03/01/17 12:28 Transderm-Scop - TD 1 patch Q72H KWAKU Administration ASSESSMENT/PLAN Hiccups/abdominal spasms --symptoms have almost completely resolved after tube feeds stopped yesterday ; no head rocking today, appears calm and comfortable --continue to hold tube feeds --continue D51/2NS @ 100mL/hr Hypertension --BP is stable on current anti-hypertensive regimen Stage III pressure ulcers buttocks, healed --will continue to address any skin issues as this is non-invasive Lower GI bleed --no further episodes --switch protonix IV to GT IDDM --no further fingersticks; no injections F/E/N: Not tolerating tube feeds at present; continue IV fluids Dispo: DNR/DNI. Comfort measures. Visit type - Emergency Visit Emergency Visit: Yes ED Registration Date: 06/27/15 Care time: The patient presented to the Emergency Department on the above date and was hospitalized for further evaluation of their emergent condition. - New Patient This patient is new to me today: No - Critical Care Critical Care patient: No
[2017-03-04] MEDS: PANTOPRAZOLE SOD 40 MG SUSPENSION PACKET GT SCH (13:17)
[2017-03-04] MEDS: LISINOPRIL 20 MG TABLET (FP) GT SCH (13:17)
[2017-03-04] MEDS: amLODIPine BESYLATE 10 MG TABLET (FP) GT SCH (13:19)
[2017-03-04] MEDS: METOPROLOL TARTRATE 50 MG TABLET (FP) GT SCH (13:20)
[2017-03-04] MEDS: SCOPOLAMINE HYDROBROMIDE 1 PATCH PATCH.TD72 TD SCH (13:20)
[2017-03-04] MEDS: PANTOPRAZOLE SOD 40 MG SUSPENSION PACKET NGT SCH (13:22)
[2017-03-05] MEDS: DEXTROSE 5%-0.45% SALINE 1,000 ML IV SCH ×3 (07:55→17:59)
[2017-03-05] MEDS: METOPROLOL TARTRATE 50 MG TABLET (FP) GT SCH (11:42)
[2017-03-05] MEDS: LISINOPRIL 20 MG TABLET (FP) GT SCH (11:44)
[2017-03-05] MEDS: amLODIPine BESYLATE 10 MG TABLET (FP) GT SCH (11:44)
[2017-03-05] MEDS: PANTOPRAZOLE SOD 40 MG SUSPENSION PACKET GT SCH (11:54)
--- NOTE | 2017-03-05 18:44 | PN ---
Physical Exam: SUBJECTIVE: Patient seen and examined OBJECTIVE: Vital Signs Period Temp Pulse Resp BP Sys/Santiago Pulse Ox Last 24 Hr 97.9 F-98.9 F 62-84 18-18 133-147/65-87 98-99 GENERAL/NEURO: Eyes open. Non-verbal. Does not follow commands. No head rocking. Appears quite calm. LUNGS: Breathing unlabored, regular, CTA HEART: Regular rate and rhythm, S1, S2 without murmur, rub or gallop. ABDOMEN: no hiccups; abdominal spasms almost resolved EXTREMITIES: 2+ pulses, warm, well-perfused, no edema. Active Medications Generic Name Dose Route Start Last Admin Trade Name Freq PRN Reason Stop Dose Admin Amlodipine Besylate 10 mg 12/30/15 10:00 03/05/17 11:44 Norvasc - GT 10 mg DAILY KWAKU Administration Dextrose/Sodium Chloride 1,000 mls @ 100 mls/hr 03/03/17 10:45 03/05/17 17:59 D5-1/2ns - IV 100 mls/hr ASDIR KWAKU Administration Lisinopril 40 mg 12/30/15 10:00 03/05/17 11:44 Prinivil GT 40 mg DAILY KWAKU Administration Metoprolol Tartrate 100 mg 02/12/17 10:00 03/05/17 11:42 Lopressor - GT 100 mg DAILY KWAKU Administration Multi-Ingredient Lotion 1 applic 11/07/16 11:55 Eucerin (Large Jar) - TP BID PRN DRY SKIN Pantoprazole Sodium 40 mg 03/04/17 12:04 03/05/17 11:54 Protonix Packets For Oral Suspension - GT 40 mg DAILY KWAKU Administration Scopolamine HBr 1 patch 12/10/16 11:00 03/04/17 13:20 Transderm-Scop - TD 1 patch Q72H KWAKU Administration ASSESSMENT/PLAN Hiccups/abdominal spasms --symptoms have completely resolved --continue to hold tube feeds --continue D51/2NS @ 100mL/hr Hypertension --BP is stable on current anti-hypertensive regimen Stage III pressure ulcers buttocks, healed --will continue to address any skin issues as this is non-invasive Lower GI bleed --no further episodes --switch protonix IV to GT IDDM --no further fingersticks; no injections F/E/N: Not tolerating tube feeds at present; continue IV fluids Dispo: DNR/DNI. Comfort measures. Visit type - Emergency Visit Emergency Visit: Yes ED Registration Date: 06/27/15 Care time: The patient presented to the Emergency Department on the above date and was hospitalized for further evaluation of their emergent condition. - New Patient This patient is new to me today: No - Critical Care Critical Care patient: No
[2017-03-06] MEDS: DEXTROSE 5%-0.45% SALINE 1,000 ML IV SCH ×3 (03:55→17:08)
[2017-03-06] MEDS: METOPROLOL TARTRATE 50 MG TABLET (FP) GT SCH (11:46)
[2017-03-06] MEDS: LISINOPRIL 20 MG TABLET (FP) GT SCH (11:46)
[2017-03-06] MEDS: amLODIPine BESYLATE 10 MG TABLET (FP) GT SCH (11:47)
[2017-03-06] MEDS: PANTOPRAZOLE SOD 40 MG SUSPENSION PACKET GT SCH (11:47)
--- NOTE | 2017-03-06 18:32 | PN ---
Physical Exam: SUBJECTIVE: Patient seen and examined at bedside. OBJECTIVE: Vital Signs Period Temp Pulse Resp BP Sys/Santiago Pulse Ox Last 24 Hr 97.7 F-98.6 F 63-86 18-20 136-152/80-99 97-98 GENERAL/NEURO: Eyes open. Non-verbal. Does not follow commands. No head rocking. Appears quite calm. LUNGS: Breathing unlabored, regular, CTA HEART: Regular rate and rhythm, S1, S2 without murmur, rub or gallop. ABDOMEN: no hiccups; abdominal spasms almost resolved EXTREMITIES: 2+ pulses, warm, well-perfused, no edema. Active Medications Generic Name Dose Route Start Last Admin Trade Name Freq PRN Reason Stop Dose Admin Amlodipine Besylate 10 mg 12/30/15 10:00 03/06/17 11:47 Norvasc - GT 10 mg DAILY KWAKU Administration Dextrose/Sodium Chloride 1,000 mls @ 100 mls/hr 03/03/17 10:45 03/06/17 17:08 D5-1/2ns - IV 100 mls/hr ASDIR KWAKU Administration Lisinopril 40 mg 12/30/15 10:00 03/06/17 11:46 Prinivil GT 40 mg DAILY KWAKU Administration Metoprolol Tartrate 100 mg 02/12/17 10:00 03/06/17 11:46 Lopressor - GT 100 mg DAILY KWAKU Administration Multi-Ingredient Lotion 1 applic 11/07/16 11:55 Eucerin (Large Jar) - TP BID PRN DRY SKIN Pantoprazole Sodium 40 mg 03/04/17 12:04 03/06/17 11:47 Protonix Packets For Oral Suspension - GT 40 mg DAILY KWAKU Administration Scopolamine HBr 1 patch 12/10/16 11:00 03/04/17 13:20 Transderm-Scop - TD 1 patch Q72H KWAKU Administration ASSESSMENT/PLAN: Hiccups/abdominal spasms --symptoms have completely resolved once tube feeds were stopped; continue to hold --continue D51/2NS @ 100mL/hr Hypertension --BP is stable on current anti-hypertensive regimen Stage III pressure ulcers buttocks, healed --will continue to address any skin issues as this is non-invasive Lower GI bleed --no further episodes --switch protonix IV to GT IDDM --no further fingersticks; no injections F/E/N: Not tolerating tube feeds at present; continue IV fluids Dispo: DNR/DNI. Comfort measures. Visit type - Emergency Visit Emergency Visit: Yes ED Registration Date: 06/27/15 Care time: The patient presented to the Emergency Department on the above date and was hospitalized for further evaluation of their emergent condition. - New Patient This patient is new to me today: No - Critical Care Critical Care patient: No
[2017-03-07] MEDS: METOPROLOL TARTRATE 50 MG TABLET (FP) GT SCH (11:57)
[2017-03-07] MEDS: amLODIPine BESYLATE 10 MG TABLET (FP) GT SCH (11:57)
[2017-03-07] MEDS: LISINOPRIL 20 MG TABLET (FP) GT SCH (11:58)
[2017-03-07] MEDS: PANTOPRAZOLE SOD 40 MG SUSPENSION PACKET GT SCH (11:58)
[2017-03-07] MEDS: SCOPOLAMINE HYDROBROMIDE 1 PATCH PATCH.TD72 TD SCH (11:58)
[2017-03-07] MEDS: DEXTROSE 5%-0.45% SALINE 1,000 ML IV SCH ×2 (12:17→21:45)
[2017-03-08] MEDS: DEXTROSE 5%-0.45% SALINE 1,000 ML IV SCH ×3 (06:41→16:55)
[2017-03-08] MEDS: PANTOPRAZOLE SOD 40 MG SUSPENSION PACKET GT SCH (10:51)
[2017-03-08] MEDS: METOPROLOL TARTRATE 50 MG TABLET (FP) GT SCH (10:51)
[2017-03-08] MEDS: amLODIPine BESYLATE 10 MG TABLET (FP) GT SCH (10:51)
[2017-03-08] MEDS: LISINOPRIL 20 MG TABLET (FP) GT SCH (10:52)
--- NOTE | 2017-03-08 13:00 | PN ---
Progress Note (short form) - Note Progress Note: Subjective: The patient was seen and examined at the bedside, non-verbal. Tolerating room air well Current Medications Generic Name Dose Route Start Last Admin Trade Name Ginette PRN Reason Stop Dose Admin Amlodipine Besylate 10 mg 12/30/15 10:00 03/08/17 10:51 Norvasc - GT 10 mg DAILY KWAKU Administration Dextrose/Sodium Chloride 1,000 mls @ 100 mls/hr 03/03/17 10:45 03/08/17 10:52 D5-1/2ns - IV Not Given ASDIR KWAKU Lisinopril 40 mg 12/30/15 10:00 03/08/17 10:52 Prinivil GT 40 mg DAILY KWAKU Administration Metoprolol Tartrate 100 mg 02/12/17 10:00 03/08/17 10:51 Lopressor - GT 100 mg DAILY KWAKU Administration Multi-Ingredient Lotion 1 applic 11/07/16 11:55 Eucerin (Large Jar) - TP BID PRN DRY SKIN Pantoprazole Sodium 40 mg 03/04/17 12:04 03/08/17 10:51 Protonix Packets For Oral Suspension - GT 40 mg DAILY KWAKU Administration Scopolamine HBr 1 patch 12/10/16 11:00 03/07/17 11:58 Transderm-Scop - TD 1 patch Q72H KWAKU Administration Objective: Vital Signs Period Temp Pulse Resp BP Sys/Santiago Pulse Ox Last 24 Hr 97.9 F-98.9 F 62-86 18-20 139-147/74-87 96 Physical Exam: General: No acute distress HEENT: Tracheal stoma Neuro: Opens eyes to verbal stimuli Pulm: CTA anteriorly CV: RRR, S1S2 Abd: Soft, non-distended. Normoactive bowel sounds. Peg tube c/d/i Ext: Warm, well-perfused. 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 Plan: 1. Anoxic brain injury s/p brainstem CVAs - Mental status unchanged 2. Respiratory failure secondary to anoxic brain injury - Cont O2 via room air, NC prn - Trach removed 09/09/16 - Duonebs PRN 3. HTN - Continue lisinopril, amlodipine, lopressor 4. Multiple pressure ulcers - Turn and position q2h - Local wound care 5. IDDM - No fingersticks or insulin per family 6. F/E/N: - Tube feeds discontinued 2/2 abdominal spasms/hiccups and increase in coughing 7. Prophylaxis: - SCDs bilaterally - No chemical anticoagulation 2/2 recent GI bleed - Functional quadriplegia CODE STATUS: DNR/DNI Visit type - Emergency Visit Emergency Visit: Yes ED Registration Date: 06/27/15 Care time: The patient presented to the Emergency Department on the above date and was hospitalized for further evaluation of their emergent condition. - New Patient This patient is new to me today: No - Critical Care Critical Care patient: No
--- NOTE | 2017-03-09 11:18 | PN ---
Progress Note (short form) - Note Progress Note: Subjective: The patient was seen and examined at the bedside, non-verbal. Tolerating room air well Current Medications Generic Name Dose Route Start Last Admin Trade Name Ginette PRN Reason Stop Dose Admin Amlodipine Besylate 10 mg 12/30/15 10:00 03/08/17 10:51 Norvasc - GT 10 mg DAILY KWAKU Administration Dextrose/Sodium Chloride 1,000 mls @ 100 mls/hr 03/03/17 10:45 03/08/17 16:55 D5-1/2ns - IV 100 mls/hr ASDIR KWAKU Administration Lisinopril 40 mg 12/30/15 10:00 03/08/17 10:52 Prinivil GT 40 mg DAILY KWAKU Administration Metoprolol Tartrate 100 mg 02/12/17 10:00 03/08/17 10:51 Lopressor - GT 100 mg DAILY KWAKU Administration Multi-Ingredient Lotion 1 applic 11/07/16 11:55 Eucerin (Large Jar) - TP BID PRN DRY SKIN Pantoprazole Sodium 40 mg 03/04/17 12:04 03/08/17 10:51 Protonix Packets For Oral Suspension - GT 40 mg DAILY KWAKU Administration Scopolamine HBr 1 patch 12/10/16 11:00 03/07/17 11:58 Transderm-Scop - TD 1 patch Q72H KWAKU Administration Objective: Vital Signs Period Temp Pulse Resp BP Sys/Santiago Pulse Ox Last 24 Hr 97.6 F-98.9 F 54-88 18-20 127-152/61-89 96 Physical Exam: General: No acute distress HEENT: Tracheal stoma Neuro: Opens eyes to verbal stimuli Pulm: CTA anteriorly CV: RRR, S1S2 Abd: Soft, non-distended. Normoactive bowel sounds. Peg tube c/d/i Ext: Warm, well-perfused. 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 Plan: 1. Anoxic brain injury s/p brainstem CVAs - Mental status unchanged 2. Respiratory failure secondary to anoxic brain injury - Cont O2 via room air, NC prn - Trach removed 09/09/16 - Duonebs PRN 3. HTN - Continue lisinopril, amlodipine, lopressor 4. Multiple pressure ulcers - Turn and position q2h - Local wound care 5. IDDM - No fingersticks or insulin per family 6. F/E/N: - Tube feeds discontinued 2/2 abdominal spasms/hiccups and increase in coughing 7. Prophylaxis: - SCDs bilaterally - No chemical anticoagulation 2/2 recent GI bleed - Functional quadriplegia CODE STATUS: DNR/DNI Visit type - Emergency Visit Emergency Visit: Yes ED Registration Date: 06/27/15 Care time: The patient presented to the Emergency Department on the above date and was hospitalized for further evaluation of their emergent condition. - New Patient This patient is new to me today: No - Critical Care Critical Care patient: No
[2017-03-09] MEDS: METOPROLOL TARTRATE 50 MG TABLET (FP) GT SCH (11:20)
[2017-03-09] MEDS: LISINOPRIL 20 MG TABLET (FP) GT SCH (11:20)
[2017-03-09] MEDS: amLODIPine BESYLATE 10 MG TABLET (FP) GT SCH (11:21)
[2017-03-09] MEDS: PANTOPRAZOLE SOD 40 MG SUSPENSION PACKET GT SCH (11:21)
[2017-03-09] MEDS: DEXTROSE 5%-0.45% SALINE 1,000 ML IV SCH ×2 (11:21→22:10)
[2017-03-10] MEDS: DEXTROSE 5%-0.45% SALINE 1,000 ML IV SCH ×3 (09:07→22:33)
[2017-03-10] MEDS: amLODIPine BESYLATE 10 MG TABLET (FP) GT SCH (09:11)
[2017-03-10] MEDS: METOPROLOL TARTRATE 50 MG TABLET (FP) GT SCH (09:11)
[2017-03-10] MEDS: PANTOPRAZOLE SOD 40 MG SUSPENSION PACKET GT SCH (09:11)
[2017-03-10] MEDS: LISINOPRIL 20 MG TABLET (FP) GT SCH (09:11)
[2017-03-10] MEDS: SCOPOLAMINE HYDROBROMIDE 1 PATCH PATCH.TD72 TD SCH (11:35)
[2017-03-11] MEDS: METOPROLOL TARTRATE 50 MG TABLET (FP) GT SCH (12:14)
[2017-03-11] MEDS: DEXTROSE 5%-0.45% SALINE 1,000 ML IV SCH ×2 (12:15→21:39)
[2017-03-11] MEDS: PANTOPRAZOLE SOD 40 MG SUSPENSION PACKET GT SCH (12:15)
[2017-03-11] MEDS: amLODIPine BESYLATE 10 MG TABLET (FP) GT SCH (12:15)
[2017-03-11] MEDS: LISINOPRIL 20 MG TABLET (FP) GT SCH (12:15)
--- NOTE | 2017-03-11 12:47 | PN ---
Progress Note (short form) - Note Progress Note: Subjective: The patient was seen and examined at the bedside, non-verbal. Tolerating room air well Current Medications Generic Name Dose Route Start Last Admin Trade Name Ginette PRN Reason Stop Dose Admin Amlodipine Besylate 10 mg 12/30/15 10:00 03/10/17 09:11 Norvasc - GT 10 mg DAILY KWAKU Administration Dextrose/Sodium Chloride 1,000 mls @ 100 mls/hr 03/03/17 10:45 03/10/17 09:07 D5-1/2ns - IV 100 mls/hr ASDIR KWAKU Administration Lisinopril 40 mg 12/30/15 10:00 03/10/17 09:11 Prinivil GT 40 mg DAILY KWAKU Administration Metoprolol Tartrate 100 mg 02/12/17 10:00 03/10/17 09:11 Lopressor - GT 100 mg DAILY KWAKU Administration Multi-Ingredient Lotion 1 applic 11/07/16 11:55 Eucerin (Large Jar) - TP BID PRN DRY SKIN Pantoprazole Sodium 40 mg 03/04/17 12:04 03/10/17 09:11 Protonix Packets For Oral Suspension - GT 40 mg DAILY KWAKU Administration Scopolamine HBr 1 patch 12/10/16 11:00 03/07/17 11:58 Transderm-Scop - TD 1 patch Q72H KWAKU Administration Objective: Vital Signs Period Temp Pulse Resp BP Sys/Santiago Pulse Ox Last 24 Hr 97.9 F-100.6 F 60-109 18-20 139-148/76-90 100 Physical Exam: General: No acute distress HEENT: Tracheal stoma Neuro: Opens eyes to verbal stimuli Pulm: CTA anteriorly CV: RRR, S1S2 Abd: Soft, non-distended. Normoactive bowel sounds. Peg tube c/d/i Ext: Warm, well-perfused. 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 Plan: 1. Anoxic brain injury s/p brainstem CVAs - Mental status unchanged 2. Respiratory failure secondary to anoxic brain injury - Cont O2 via room air, NC prn - Trach removed 09/09/16 - Duonebs PRN 3. HTN - Continue lisinopril, amlodipine, lopressor 4. Multiple pressure ulcers - Turn and position q2h - Local wound care 5. IDDM - No fingersticks or insulin per family 6. F/E/N: - Tube feeds discontinued 2/2 abdominal spasms/hiccups and increase in coughing 7. Prophylaxis: - SCDs bilaterally - No chemical anticoagulation 2/2 recent GI bleed - Functional quadriplegia CODE STATUS: DNR/DNI Visit type - Emergency Visit Emergency Visit: Yes ED Registration Date: 06/27/15 Care time: The patient presented to the Emergency Department on the above date and was hospitalized for further evaluation of their emergent condition. - New Patient This patient is new to me today: No - Critical Care Critical Care patient: No
--- NOTE | 2017-03-12 13:21 | PN ---
Physical Exam: SUBJECTIVE: Patient seen and examined at bedside. OBJECTIVE: Vital Signs Period Temp Pulse Resp BP Sys/Santiago Pulse Ox Last 24 Hr 98 F-99.3 F 89-95 20-20 138-154/87-98 99 GENERAL/NEURO: Eyes open. Non-verbal. Does not follow commands. Head rocking. LUNGS: Breathing is rapid and shallow, periods of apnea. +accessory muscle use; patient appears uncomfortable; thick white secretions HEART: Regular rate and rhythm, S1, S2 without murmur, rub or gallop. ABDOMEN: soft, not tender, not distended; no hiccups EXTREMITIES: 2+ pulses, warm, well-perfused, no edema. Active Medications Generic Name Dose Route Start Last Admin Trade Name Freq PRN Reason Stop Dose Admin Amlodipine Besylate 10 mg 12/30/15 10:00 03/11/17 12:15 Norvasc - GT 10 mg DAILY KWAKU Administration Dextrose/Sodium Chloride 1,000 mls @ 100 mls/hr 03/03/17 10:45 03/11/17 21:39 D5-1/2ns - IV 100 mls/hr ASDIR KWAKU Administration Morphine Sulfate 100 mg/ 100 mls @ 1 mls/hr 03/12/17 13:30 Sodium Chloride IVPB TITR KWAKU Protocol 1 MG/HR Lisinopril 40 mg 12/30/15 10:00 03/11/17 12:15 Prinivil GT 40 mg DAILY KWAKU Administration Metoprolol Tartrate 100 mg 02/12/17 10:00 03/11/17 12:14 Lopressor - GT 100 mg DAILY KWAKU Administration Multi-Ingredient Lotion 1 applic 11/07/16 11:55 Eucerin (Large Jar) - TP BID PRN DRY SKIN Pantoprazole Sodium 40 mg 03/04/17 12:04 03/11/17 12:15 Protonix Packets For Oral Suspension - GT 40 mg DAILY KWAKU Administration Scopolamine HBr 1 patch 12/10/16 11:00 03/10/17 11:35 Transderm-Scop - TD 1 patch Q72H KWAKU Administration ASSESSMENT/PLAN Irregular breathing Central apnea --patient has had central apnea for prolonged period, but breathing is observed today to be rapid and shallow followed by periods of apnea, followed by light gasping sounds; patient appears uncomfortable, head rocking, brow furrowed --start morphine drip @ 1mg/hr Hypertension --BP is stable on current anti-hypertensive regimen Stage III pressure ulcers buttocks, healed --will continue to address any skin issues as this is non-invasive Lower GI bleed --no further episodes --switch protonix IV to GT IDDM --no further fingersticks; no injections F/E/N: Not tolerating tube feeds; continue IV fluids Dispo: DNR/DNI. Comfort measures. Visit type - Emergency Visit Emergency Visit: Yes ED Registration Date: 06/27/15 Care time: The patient presented to the Emergency Department on the above date and was hospitalized for further evaluation of their emergent condition. - New Patient This patient is new to me today: No - Critical Care Critical Care patient: No
[2017-03-12] MEDS: LISINOPRIL 20 MG TABLET (FP) GT SCH (14:21)
[2017-03-12] MEDS: amLODIPine BESYLATE 10 MG TABLET (FP) GT SCH (14:21)
[2017-03-12] MEDS: PANTOPRAZOLE SOD 40 MG SUSPENSION PACKET GT SCH (14:22)
[2017-03-12] MEDS: METOPROLOL TARTRATE 50 MG TABLET (FP) GT SCH (14:22)
[2017-03-12] MEDS: DEXTROSE 5%-0.45% SALINE 1,000 ML IV SCH (14:22)
[2017-03-12] MEDS: MORPHINE 100 MG in SODIUM CHLORIDE 98 ML IVPB SCH (14:22)
[2017-03-13] MEDS: amLODIPine BESYLATE 10 MG TABLET (FP) GT SCH (11:07)
[2017-03-13] MEDS: METOPROLOL TARTRATE 50 MG TABLET (FP) GT SCH (11:07)
[2017-03-13] MEDS: LISINOPRIL 20 MG TABLET (FP) GT SCH (11:07)
[2017-03-13] MEDS: PANTOPRAZOLE SOD 40 MG SUSPENSION PACKET GT SCH (11:07)
[2017-03-13] MEDS: SCOPOLAMINE HYDROBROMIDE 1 PATCH PATCH.TD72 TD SCH (11:09)
[2017-03-13] MEDS: MORPHINE 100 MG in SODIUM CHLORIDE 98 ML IVPB SCH (13:00)
--- NOTE | 2017-03-13 15:44 | HOSP ---
Subjective - Review of Symptoms Events since last encounter: Spoke with Carole Chaparro by phone today. I advised her that yesterday I observed the patient's breathing was labored and he appeared uncomfortable. I told her we started IV morphine @ 1mg/hr and that his breathing today was regular and unlabored and he did not appear to be in any distress. I told her that morphine is sometimes used as a palliative care measure to ease respiratory distress. She voiced no objection and said thank you. Physical Examination Vital Signs: Vital Signs Temperature 97.7 F 03/13/17 05:58 Pulse Rate 73 03/13/17 05:58 Respiratory Rate 20 03/13/17 05:58 Blood Pressure 144/82 03/13/17 05:58 O2 Sat by Pulse Oximetry (%) 97 03/12/17 10:00 Labs: CBC, BMP 02/02/17 07:45 02/02/17 07:45
--- NOTE | 2017-03-13 15:52 | PN ---
Physical Exam: SUBJECTIVE: Patient seen and examined at bedside. On morphine drip for respiratory distress. OBJECTIVE: Vital Signs Period Temp Pulse Resp BP Sys/Santiago Pulse Ox Last 24 Hr 97.7 F-98.3 F 63-78 20-20 119-151/81-91 GENERAL/NEURO: Eyes open. Non-verbal. Does not follow commands. Resting comfortably. No apparent distress. LUNGS: Breathing is regular, not labored. No accessory muscle use. No observed periods of apnea. HEART: Regular rate and rhythm, S1, S2 without murmur, rub or gallop. ABDOMEN: soft, not tender, not distended; no hiccups EXTREMITIES: 2+ pulses, warm, well-perfused, no edema. Active Medications Generic Name Dose Route Start Last Admin Trade Name Freq PRN Reason Stop Dose Admin Amlodipine Besylate 10 mg 12/30/15 10:00 03/13/17 11:07 Norvasc - GT 10 mg DAILY KWAKU Administration Dextrose/Sodium Chloride 1,000 mls @ 100 mls/hr 03/03/17 10:45 03/12/17 14:22 D5-1/2ns - IV 100 mls/hr ASDIR KWAKU Administration Morphine Sulfate 100 mg/ 100 mls @ 1 mls/hr 03/12/17 13:30 03/12/17 14:22 Sodium Chloride IVPB 1 mls/hr TITR KWAKU Administration Protocol 1 MG/HR Lisinopril 40 mg 12/30/15 10:00 03/13/17 11:07 Prinivil GT 40 mg DAILY KWAKU Administration Metoprolol Tartrate 100 mg 02/12/17 10:00 03/13/17 11:07 Lopressor - GT 100 mg DAILY KWAKU Administration Multi-Ingredient Lotion 1 applic 11/07/16 11:55 Eucerin (Large Jar) - TP BID PRN DRY SKIN Pantoprazole Sodium 40 mg 03/04/17 12:04 03/13/17 11:07 Protonix Packets For Oral Suspension - GT 40 mg DAILY KWAKU Administration Scopolamine HBr 1 patch 12/10/16 11:00 03/13/17 11:09 Transderm-Scop - TD 1 patch Q72H KWAKU Administration ASSESSMENT/PLAN Respiratory distress, improved --started on morphine drip yesterday afternoon and breathing today is regular , not labored; no accessory muscle use; no periods of apnea or gasping; --continue morphine drip @ 1mg/hr Hypertension --BP is stable on current anti-hypertensive regimen Stage III pressure ulcers buttocks, healed --will continue to address any skin issues as this is non-invasive Lower GI bleed --no further episodes --switch protonix IV to GT IDDM --no further fingersticks; no injections F/E/N: Not tolerating tube feeds; continue IV fluids Dispo: DNR/DNI. Comfort measures. Visit type - Emergency Visit Emergency Visit: Yes ED Registration Date: 06/27/15 Care time: The patient presented to the Emergency Department on the above date and was hospitalized for further evaluation of their emergent condition. - New Patient This patient is new to me today: No - Critical Care Critical Care patient: No
[2017-03-14] MEDS: DEXTROSE 5%-0.45% SALINE 1,000 ML IV SCH ×2 (06:52→20:23)
[2017-03-14] MEDS: METOPROLOL TARTRATE 50 MG TABLET (FP) GT SCH (10:12)
[2017-03-14] MEDS: amLODIPine BESYLATE 10 MG TABLET (FP) GT SCH (10:12)
[2017-03-14] MEDS: LISINOPRIL 20 MG TABLET (FP) GT SCH (10:12)
[2017-03-14] MEDS: PANTOPRAZOLE SOD 40 MG SUSPENSION PACKET GT SCH (10:12)
--- NOTE | 2017-03-14 12:51 | PN ---
Physical Exam: SUBJECTIVE: Patient seen and examined at bedside. On morphine drip. OBJECTIVE: Vital Signs Period Temp Pulse Resp BP Sys/Santiago Pulse Ox Last 24 Hr 97.4 F-98.6 F 62-73 20-20 137-151/77-84 97 GENERAL/NEURO: Eyes open. Non-verbal. Does not follow commands. Resting comfortably. No apparent distress. LUNGS: Breathing is regular, not labored. No accessory muscle use. No observed periods of apnea. HEART: Regular rate and rhythm, S1, S2 without murmur, rub or gallop. ABDOMEN: soft, not tender, not distended; no hiccups EXTREMITIES: 2+ pulses, warm, well-perfused, no edema. Active Medications Generic Name Dose Route Start Last Admin Trade Name Freq PRN Reason Stop Dose Admin Amlodipine Besylate 10 mg 12/30/15 10:00 03/14/17 10:12 Norvasc - GT 10 mg DAILY KWAKU Administration Dextrose/Sodium Chloride 1,000 mls @ 100 mls/hr 03/03/17 10:45 03/14/17 06:52 D5-1/2ns - IV 100 mls/hr ASDIR KWAKU Administration Morphine Sulfate 100 mg/ 100 mls @ 1 mls/hr 03/12/17 13:30 03/12/17 14:22 Sodium Chloride IVPB 1 mls/hr TITR KWAKU Administration Protocol 1 MG/HR Lisinopril 40 mg 12/30/15 10:00 03/14/17 10:12 Prinivil GT 40 mg DAILY KWAKU Administration Metoprolol Tartrate 100 mg 02/12/17 10:00 03/14/17 10:12 Lopressor - GT 100 mg DAILY KWAKU Administration Multi-Ingredient Lotion 1 applic 11/07/16 11:55 Eucerin (Large Jar) - TP BID PRN DRY SKIN Pantoprazole Sodium 40 mg 03/04/17 12:04 03/14/17 10:12 Protonix Packets For Oral Suspension - GT 40 mg DAILY KWAKU Administration Scopolamine HBr 1 patch 12/10/16 11:00 03/13/17 11:09 Transderm-Scop - TD 1 patch Q72H KWAKU Administration ASSESSMENT/PLAN: Respiratory distress, improved --breathing regular, not labored; no accessory muscle use, no periods of apnea or gasping --continue morphine drip @ 1mg/hr Hypertension --BP is stable on current anti-hypertensive regimen Stage III pressure ulcers buttocks, healed --will continue to address any skin issues as this is non-invasive Lower GI bleed --no further episodes --switch protonix IV to GT IDDM --no further fingersticks; no injections F/E/N: Not tolerating tube feeds; continue IV fluids Dispo: DNR/DNI. Comfort measures. Visit type - Emergency Visit Emergency Visit: Yes ED Registration Date: 06/27/15 Care time: The patient presented to the Emergency Department on the above date and was hospitalized for further evaluation of their emergent condition. - New Patient This patient is new to me today: No - Critical Care Critical Care patient: No
[2017-03-14] MEDS: MORPHINE 100 MG in SODIUM CHLORIDE 98 ML IVPB SCH (13:10)
[2017-03-15] MEDS: MORPHINE 100 MG in SODIUM CHLORIDE 98 ML IVPB SCH (03:48)
[2017-03-15] MEDS: PANTOPRAZOLE SOD 40 MG SUSPENSION PACKET GT SCH (18:11)
[2017-03-15] MEDS: amLODIPine BESYLATE 10 MG TABLET (FP) GT SCH (18:11)
[2017-03-15] MEDS: METOPROLOL TARTRATE 50 MG TABLET (FP) GT SCH (18:11)
[2017-03-15] MEDS: LISINOPRIL 20 MG TABLET (FP) GT SCH (18:11)
[2017-03-15] MEDS: DEXTROSE 5%-0.45% SALINE 1,000 ML IV SCH (18:12)
--- NOTE | 2017-03-15 18:48 | PN ---
Physical Exam: SUBJECTIVE: Patient seen and examined at bedside. Daughter Carole present. We discussed the morphine drip and making her father comfortable. We also discussed that a castellano was placed yesterday because he was retaining urine. She is in agreement with plan and goals of care. OBJECTIVE: Vital Signs Period Temp Pulse Resp BP Sys/Santiago Pulse Ox Last 24 Hr 98.3 F-99.5 F 84-109 20-20 134-160/79-92 97 GENERAL/NEURO: Eyes open. Non-verbal. Does not follow commands. Resting comfortably. No apparent distress. LUNGS: Breathing is regular, not labored. No accessory muscle use. No observed periods of apnea. HEART: Regular rate and rhythm, S1, S2 without murmur, rub or gallop. ABDOMEN: soft, not tender, not distended; no hiccups EXTREMITIES: 2+ pulses, warm, well-perfused, no edema. Active Medications Generic Name Dose Route Start Last Admin Trade Name Freq PRN Reason Stop Dose Admin Amlodipine Besylate 10 mg 12/30/15 10:00 03/15/17 18:11 Norvasc - GT 10 mg DAILY KWAKU Administration Dextrose/Sodium Chloride 1,000 mls @ 100 mls/hr 03/03/17 10:45 03/15/17 18:12 D5-1/2ns - IV 100 mls/hr ASDIR KWAKU Administration Morphine Sulfate 100 mg/ 100 mls @ 1 mls/hr 03/15/17 03:15 03/15/17 14:43 Sodium Chloride IVPB 2 mg/hr TITR KWAKU Titration Protocol 1 MG/HR Lisinopril 40 mg 12/30/15 10:00 03/15/17 18:11 Prinivil GT 40 mg DAILY KWAKU Administration Metoprolol Tartrate 100 mg 02/12/17 10:00 03/15/17 18:11 Lopressor - GT 100 mg DAILY KWAKU Administration Multi-Ingredient Lotion 1 applic 11/07/16 11:55 Eucerin (Large Jar) - TP BID PRN DRY SKIN Pantoprazole Sodium 40 mg 03/04/17 12:04 03/15/17 18:11 Protonix Packets For Oral Suspension - GT 40 mg DAILY KWAKU Administration Scopolamine HBr 1 patch 12/10/16 11:00 03/13/17 11:09 Transderm-Scop - TD 1 patch Q72H KWAKU Administration ASSESSMENT/PLAN Respiratory distress, improved --breathing regular, not labored; no accessory muscle use, no periods of apnea or gasping --continue morphine drip Urinary retention --had dry diapers and bladder scan yesterday showed 500cc's; castellano inserted , draining clear yellow urine Hypertension --BP is stable on current anti-hypertensive regimen Stage III pressure ulcers buttocks, healed --will continue to address any skin issues as this is non-invasive Lower GI bleed --no further episodes --switch protonix IV to GT IDDM --no further fingersticks; no injections F/E/N: Not tolerating tube feeds; continue IV fluids Dispo: DNR/DNI. Comfort measures. Visit type - Emergency Visit Emergency Visit: Yes ED Registration Date: 06/27/15 Care time: The patient presented to the Emergency Department on the above date and was hospitalized for further evaluation of their emergent condition. - New Patient This patient is new to me today: No - Critical Care Critical Care patient: No
[2017-03-16] MEDS: DEXTROSE 5%-0.45% SALINE 1,000 ML IV SCH (06:04)
[2017-03-16] MEDS: amLODIPine BESYLATE 10 MG TABLET (FP) GT SCH (11:57)
[2017-03-16] MEDS: SCOPOLAMINE HYDROBROMIDE 1 PATCH PATCH.TD72 TD SCH (11:57)
[2017-03-16] MEDS: LISINOPRIL 20 MG TABLET (FP) GT SCH (11:58)
[2017-03-16] MEDS: PANTOPRAZOLE SOD 40 MG SUSPENSION PACKET GT SCH (11:58)
[2017-03-16] MEDS: METOPROLOL TARTRATE 50 MG TABLET (FP) GT SCH (11:58)
--- NOTE | 2017-03-16 14:50 | PN ---
Physical Exam: SUBJECTIVE: Patient seen and examined at bedside. OBJECTIVE: Vital Signs Period Temp Pulse Resp BP Sys/Santiago Pulse Ox Last 24 Hr 9.9 F-99.6 F 97-116 18-20 148-160/88-91 97 GENERAL/NEURO: Eyes open. Non-verbal. Does not follow commands. Resting comfortably. No apparent distress. LUNGS: Breathing is regular, not labored. No accessory muscle use. No observed periods of apnea. HEART: Regular rate and rhythm, S1, S2 without murmur, rub or gallop. ABDOMEN: soft, not tender, not distended; no hiccups EXTREMITIES: 2+ pulses, warm, well-perfused, no edema. Active Medications Generic Name Dose Route Start Last Admin Trade Name Freq PRN Reason Stop Dose Admin Amlodipine Besylate 10 mg 12/30/15 10:00 03/16/17 11:57 Norvasc - GT Not Given DAILY KWAKU Dextrose/Sodium Chloride 1,000 mls @ 100 mls/hr 03/03/17 10:45 03/16/17 06:04 D5-1/2ns - IV 100 mls/hr ASDIR KWAKU Administration Morphine Sulfate 100 mg/ 100 mls @ 1 mls/hr 03/15/17 03:15 03/15/17 14:43 Sodium Chloride IVPB 2 mg/hr TITR KWAKU Titration Protocol 1 MG/HR Lisinopril 40 mg 12/30/15 10:00 03/16/17 11:58 Prinivil GT Not Given DAILY KWAKU Metoprolol Tartrate 100 mg 02/12/17 10:00 03/16/17 11:58 Lopressor - GT Not Given DAILY KWAKU Multi-Ingredient Lotion 1 applic 11/07/16 11:55 Eucerin (Large Jar) - TP BID PRN DRY SKIN Pantoprazole Sodium 40 mg 03/04/17 12:04 03/16/17 11:58 Protonix Packets For Oral Suspension - GT Not Given DAILY KWAKU Scopolamine HBr 1 patch 12/10/16 11:00 03/16/17 11:57 Transderm-Scop - TD 1 patch Q72H KWAKU Administration ASSESSMENT/PLAN Respiratory distress, improved --breathing regular, not labored; no accessory muscle use, no periods of apnea or gasping --continue morphine drip Urinary retention --castellano inserted 03/14/17, draining clear yellow urine Hypertension --PO anti-hypertensives have been administered via PEG tube which has been clogged since yesterday despite nursing interventions --will ask GI to assess to see if non-invasive way to resolve --metoprolol 5mg IVPB q6h PRN for SBP >160 or DBP >90 Continue IV fluids Dispo: DNR/DNI. Comfort measures. Visit type - Emergency Visit Emergency Visit: Yes ED Registration Date: 06/27/15 Care time: The patient presented to the Emergency Department on the above date and was hospitalized for further evaluation of their emergent condition. - New Patient This patient is new to me today: No - Critical Care Critical Care patient: No
[2017-03-17] MEDS: DEXTROSE 5%-0.45% SALINE 1,000 ML IV SCH (12:00)
--- NOTE | 2017-03-17 13:32 | PN ---
Progress Note (short form) - Note Progress Note: Subjective: The patient was seen and examined at the bedside, non-verbal. Tolerating room air well. Remains on Morphine gtt. Appears comfortable G-tube clogged, awaiting GI reconsult Current Medications Generic Name Dose Route Start Last Admin Trade Name Freq PRN Reason Stop Dose Admin Dextrose/Sodium Chloride 1,000 mls @ 100 mls/hr 03/03/17 10:45 03/16/17 06:04 D5-1/2ns - IV 100 mls/hr ASDIR KWAKU Administration Morphine Sulfate 100 mg/ 100 mls @ 1 mls/hr 03/15/17 03:15 03/15/17 14:43 Sodium Chloride IVPB 2 mg/hr TITR KWAKU Titration Protocol 1 MG/HR Metoprolol Tartrate 5 mg 03/17/17 07:41 Lopressor Injection - IVPB Q6H PRN HYPERTENSION Multi-Ingredient Lotion 1 applic 11/07/16 11:55 Eucerin (Large Jar) - TP BID PRN DRY SKIN Scopolamine HBr 1 patch 12/10/16 11:00 03/16/17 11:57 Transderm-Scop - TD 1 patch Q72H KWAKU Administration Objective: Vital Signs Period Temp Pulse Resp BP Sys/Santiago Pulse Ox Last 24 Hr 98.5 F-99 F 85-105 18-20 136-161/58-91 97 Physical Exam: General: No acute distress HEENT: Tracheal stoma Neuro: Opens eyes to verbal stimuli Pulm: CTA anteriorly CV: RRR, S1S2 Abd: Soft, non-distended. Normoactive bowel sounds. Peg tube c/d/i Ext: Warm, well-perfused. 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 Plan: 1. Anoxic brain injury s/p brainstem CVAs - Mental status unchanged 2. Respiratory failure secondary to anoxic brain injury - Cont O2 via room air, NC prn - Trach removed 09/09/16 - Duonebs PRN - Morphine gtt for respiratory distress which has improved 3. HTN - G-tube clogged, changed meds to Lopressor 5mg IVPB prn 4. F/E/N: - Continue IV fluids 5. Prophylaxis: - SCDs bilaterally - No chemical anticoagulation 2/2 recent GI bleed - Functional quadriplegia CODE STATUS: DNR/DNI Visit type - Emergency Visit Emergency Visit: Yes ED Registration Date: 06/27/15 Care time: The patient presented to the Emergency Department on the above date and was hospitalized for further evaluation of their emergent condition. - New Patient This patient is new to me today: No - Critical Care Critical Care patient: No
[2017-03-17] MEDS: MORPHINE 100 MG in SODIUM CHLORIDE 98 ML IVPB SCH ×2 (13:56)
[2017-03-17] MEDS: METOPROLOL TARTRATE 5 MG/5 ML VIAL IVPB PRN (13:57)
[2017-03-18] MEDS: MORPHINE 100 MG in SODIUM CHLORIDE 98 ML IVPB SCH (02:50)
[2017-03-18] MEDS: METOPROLOL TARTRATE 5 MG/5 ML VIAL IVPB PRN (06:43)
--- NOTE | 2017-03-18 10:57 | PN ---
Progress Note (short form) - Note Progress Note: Subjective: The patient was seen and examined at the bedside, non-verbal. Tolerating room air well. Remains on Morphine gtt. Appears comfortable G-tube clogged, awaiting GI reconsult Current Medications Generic Name Dose Route Start Last Admin Trade Name Freq PRN Reason Stop Dose Admin Dextrose/Sodium Chloride 1,000 mls @ 100 mls/hr 03/03/17 10:45 03/17/17 12:00 D5-1/2ns - IV 100 mls/hr ASDIR KWAKU Administration Morphine Sulfate 100 mg/ 100 mls @ 1 mls/hr 03/15/17 03:15 03/18/17 02:50 Sodium Chloride IVPB 2 mls/hr TITR KWAKU Administration Protocol 1 MG/HR Metoprolol Tartrate 5 mg 03/17/17 07:41 03/18/17 06:43 Lopressor Injection - IVPB 5 mg Q6H PRN Administration HYPERTENSION Multi-Ingredient Lotion 1 applic 11/07/16 11:55 Eucerin (Large Jar) - TP BID PRN DRY SKIN Scopolamine HBr 1 patch 12/10/16 11:00 03/16/17 11:57 Transderm-Scop - TD 1 patch Q72H KWAKU Administration Objective: Vital Signs Period Temp Pulse Resp BP Sys/Santiago Pulse Ox Last 24 Hr 98.6 F-98.9 F 76-102 18-20 149-169/78-98 99 Physical Exam: General: No acute distress HEENT: Tracheal stoma Neuro: Opens eyes to verbal stimuli Pulm: CTA anteriorly CV: RRR, S1S2 Abd: Soft, non-distended. Normoactive bowel sounds. Peg tube c/d/i Ext: Warm, well-perfused. 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 Plan: 1. Anoxic brain injury s/p brainstem CVAs - Mental status unchanged 2. Respiratory failure secondary to anoxic brain injury - Cont O2 via room air, NC prn - Trach removed 09/09/16 - Duonebs PRN - Morphine gtt for respiratory distress which has improved 3. HTN - G-tube clogged, changed meds to Lopressor 5mg IVPB prn 4. F/E/N: - Continue IV fluids 5. Prophylaxis: - SCDs bilaterally - No chemical anticoagulation 2/2 recent GI bleed - Functional quadriplegia CODE STATUS: DNR/DNI Visit type - Emergency Visit Emergency Visit: Yes ED Registration Date: 06/27/15 Care time: The patient presented to the Emergency Department on the above date and was hospitalized for further evaluation of their emergent condition. - New Patient This patient is new to me today: No - Critical Care Critical Care patient: No
[2017-03-18] MEDS: DEXTROSE 5%-0.45% SALINE 1,000 ML IV SCH (17:46)
[2017-03-19] MEDS: SCOPOLAMINE HYDROBROMIDE 1 PATCH PATCH.TD72 TD SCH (11:41)
[2017-03-19] MEDS: DEXTROSE 5%-0.45% SALINE 1,000 ML IV SCH ×2 (12:00→21:44)
[2017-03-19] MEDS: MORPHINE 100 MG in SODIUM CHLORIDE 98 ML IVPB SCH (19:37)
[2017-03-19] MEDS: METOPROLOL TARTRATE 5 MG/5 ML VIAL IVPB PRN (21:59)
[2017-03-20] MEDS: MORPHINE 100 MG in SODIUM CHLORIDE 98 ML IVPB SCH ×2 (03:15→20:00)
[2017-03-20] MEDS: METOPROLOL TARTRATE 5 MG/5 ML VIAL IVPB PRN (06:30)
[2017-03-20] MEDS: DEXTROSE 5%-0.45% SALINE 1,000 ML IV SCH (21:47)
[2017-03-21] MEDS: DEXTROSE 5%-0.45% SALINE 1,000 ML IV SCH ×2 (07:30→18:22)
--- NOTE | 2017-03-21 13:47 | PN ---
Progress Note (short form) - Note Progress Note: Subjective: The patient was seen and examined at the bedside, non-verbal. Tolerating room air well. Remains on Morphine gtt. Appears comfortable G-tube clogged, awaiting GI reconsult (called office today) Current Medications Generic Name Dose Route Start Last Admin Trade Name Freq PRN Reason Stop Dose Admin Dextrose/Sodium Chloride 1,000 mls @ 100 mls/hr 03/03/17 10:45 03/18/17 17:46 D5-1/2ns - IV 100 mls/hr ASDIR KWAKU Administration Morphine Sulfate 100 mg/ 100 mls @ 1 mls/hr 03/15/17 03:15 03/18/17 02:50 Sodium Chloride IVPB 2 mls/hr TITR KWAKU Administration Protocol 1 MG/HR Metoprolol Tartrate 5 mg 03/17/17 07:41 03/18/17 06:43 Lopressor Injection - IVPB 5 mg Q6H PRN Administration HYPERTENSION Multi-Ingredient Lotion 1 applic 11/07/16 11:55 Eucerin (Large Jar) - TP BID PRN DRY SKIN Scopolamine HBr 1 patch 12/10/16 11:00 03/16/17 11:57 Transderm-Scop - TD 1 patch Q72H KWAKU Administration Objective: Vital Signs Period Temp Pulse Resp BP Sys/Santiago Pulse Ox Last 24 Hr 97.8 F-98.9 F 79-100 18-20 116-158/72-93 98-100 Physical Exam: General: No acute distress HEENT: Tracheal stoma Neuro: Opens eyes to verbal stimuli Pulm: CTA anteriorly CV: RRR, S1S2 Abd: Soft, non-distended. Normoactive bowel sounds. Peg tube c/d/i Ext: Warm, well-perfused. 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 Plan: 1. Anoxic brain injury s/p brainstem CVAs - Mental status unchanged 2. Respiratory failure secondary to anoxic brain injury - Cont O2 via room air, [place] prn - Trach removed 09/09/16 - Duonebs PRN - Morphine gtt for respiratory distress which has improved 3. HTN - G-tube clogged, changed meds to Lopressor 5mg IVPB prn 4. F/E/N: - Continue IV fluids 5. Prophylaxis: - SCDs bilaterally - No chemical anticoagulation 2/2 recent GI bleed - Functional quadriplegia CODE STATUS: DNR/DNI Visit type - Emergency Visit Emergency Visit: Yes ED Registration Date: 06/27/15 Care time: The patient presented to the Emergency Department on the above date and was hospitalized for further evaluation of their emergent condition. - New Patient This patient is new to me today: No - Critical Care Critical Care patient: No
[2017-03-21] MEDS: METOPROLOL TARTRATE 5 MG/5 ML VIAL IVPB PRN (21:40)
[2017-03-21] MEDS: MORPHINE 100 MG in SODIUM CHLORIDE 98 ML IVPB SCH (22:00)
[2017-03-22] MEDS: MORPHINE 100 MG in SODIUM CHLORIDE 98 ML IVPB SCH (04:40)
[2017-03-22] MEDS: SCOPOLAMINE HYDROBROMIDE 1 PATCH PATCH.TD72 TD SCH (10:14)
[2017-03-22] MEDS: DEXTROSE 5%-0.45% SALINE 1,000 ML IV SCH (14:12)
[2017-03-22] MEDS: METOPROLOL TARTRATE 5 MG/5 ML VIAL IVPB PRN (14:12)
--- NOTE | 2017-03-22 15:30 | PN ---
Progress Note (short form) - Note Progress Note: Subjective This is a 76 year old man who was seen and evaluated at bedside. Nonverbal at baseline. Objective Home Medications 3 Medication Instructions Recorded Amino Acids/Protein Hydrolys 30 ml GT DAILY packet 08/09/15 [Prostat Sugar-Free Packet -] Amlodipine Besylate [Norvasc -] 10 mg GT DAILY tablet 08/09/15 Chlorhexidine Gluconate [Peridex -] 15 ml MM BID cup 08/09/15 Insulin (Levemir) [Levemir Flexpen 25 units SQ HS pen 08/09/15 -] Insulin (Novolog) [Novolog Flexpen 3 units SQ Q6HPO pen 08/09/15 -] Insulin Sliding Scale [Novolog 0 units SQ Q6HPO pen 08/09/15 Vial Sliding Scale -] Lisinopril [Prinivil] 20 mg GT DAILY tablet 08/09/15 Metoprolol Tartrate Injection 5 mg IVPB Q6H PRN #0 vial 08/09/15 [Lopressor Injection -] Metoprolol Tartrate [Lopressor -] 100 mg GT BID tablet 08/09/15 Ondansetron Injection [Zofran 4 mg IVPB Q6H PRN #0 vial 08/09/15 Injection] Pantoprazole Suspension [Protonix 40 mg GT DAILY packet 08/09/15 Packets For Oral Suspension -] Vancomycin Oral Solution 125 mg GT Q6HPO ml 08/09/15 P/E: General: Pt noted to be grimacing during exam. Neurology: Eyes open to verbal stimuli. Respiratory: Increased work of breathing noted. Lungs CTAB. Cardiac: RRR. S1, S2 present. No murmurs. Abdomen: Soft, non-distended. Normoactive bowel sounds. Peg tube c/d/i Extremities: Warm, well-perfused. 2+ pulses bilaterally Vital Signs - 24 hr 3 03/21/17 03/21/17 03/21/17 18:59 21:00 21:40 Temperature 99.7 F H Pulse Rate 104 H 109 H Respiratory 18 Rate Blood Pressure 144/87 164/107 O2 Sat by Pulse 96 Oximetry (%) 3 03/21/17 03/22/17 03/22/17 22:00 02:00 05:43 Temperature 99.8 F H 97.9 F 98.5 F Pulse Rate 109 H 93 H 83 Respiratory 20 20 20 Rate Blood Pressure 164/107 152/83 150/87 O2 Sat by Pulse Oximetry (%) 3 03/22/17 03/22/17 09:46 14:11 Temperature 98.9 F 98.1 F Pulse Rate 95 H 102 H Respiratory 19 18 Rate Blood Pressure 143/85 160/87 O2 Sat by Pulse Oximetry (%) A: This is a 76 yo man with h/o HTN, IDDM, inguinal hernia who presented to the ED with diverticular bleed s/p Right hemicolectomy with 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 PEG unclogged today by GI. P: Anoxic brain injury s/p brainstem CVAs - Mental status unchanged Respiratory failure secondary to anoxic brain injury - Cont O2 via room air, NC prn - Trach removed 09/09/16 - Duonebs PRN - Morphine gtt for respiratory distress. uptitrated for pain HTN - continue PRN metoprolol F/E/N: - Continue IV fluids - G-tube unclogged -NPO PPX: - SCDs bilaterally - No chemical anticoagulation 2/2 recent GI bleed - Functional quadriplegia CODE STATUS: DNR/DNI Visit type - Emergency Visit Emergency Visit: Yes ED Registration Date: 06/27/15 Care time: The patient presented to the Emergency Department on the above date and was hospitalized for further evaluation of their emergent condition. - New Patient This patient is new to me today: No - Critical Care Critical Care patient: No - Discharge Referral Referred to [facility] Med [facility].: No
[2017-03-23] MEDS: DEXTROSE 5%-0.45% SALINE 1,000 ML IV SCH ×2 (01:12→23:33)
[2017-03-23] MEDS: MORPHINE 100 MG in SODIUM CHLORIDE 98 ML IVPB SCH (06:16)
[2017-03-23] MEDS: LISINOPRIL 20 MG TABLET (FP) GT SCH (15:04)
[2017-03-23] MEDS: amLODIPine BESYLATE 10 MG TABLET (FP) GT SCH (15:04)
[2017-03-23] MEDS: METOPROLOL TARTRATE 50 MG TABLET (FP) GT SCH (15:04)
--- NOTE | 2017-03-23 18:27 | PN ---
Physical Exam: SUBJECTIVE: Patient seen and examined at bedside. OBJECTIVE: Vital Signs Period Temp Pulse Resp BP Sys/Santiago Pulse Ox Last 24 Hr 97.4 F-98.7 F 70-97 18-20 123-158/70-96 99-99 GENERAL/NEURO: Eyes open. Non-verbal. Does not follow commands. Resting comfortably. No apparent distress. LUNGS: Breathing is regular, not labored. No accessory muscle use. No observed periods of apnea. HEART: Regular rate and rhythm, S1, S2 without murmur, rub or gallop. ABDOMEN: soft, not tender, not distended; no hiccups EXTREMITIES: 2+ pulses, warm, well-perfused, no edema. Active Medications Generic Name Dose Route Start Last Admin Trade Name Freq PRN Reason Stop Dose Admin Amlodipine Besylate 10 mg 03/23/17 12:45 03/23/17 15:04 Norvasc - GT 10 mg DAILY KWAKU Administration Dextrose/Sodium Chloride 1,000 mls @ 100 mls/hr 03/03/17 10:45 03/23/17 01:12 D5-1/2ns - IV 100 mls/hr ASDIR KWAKU Administration Morphine Sulfate 100 mg/ 100 mls @ 1 mls/hr 03/15/17 03:15 03/23/17 06:16 Sodium Chloride IVPB 2 mls/hr TITR KWAKU Administration Protocol 1 MG/HR Lisinopril 40 mg 03/23/17 12:45 03/23/17 15:04 Prinivil GT 40 mg DAILY KWAKU Administration Metoprolol Tartrate 100 mg 03/23/17 12:37 03/23/17 15:04 Lopressor - GT 100 mg DAILY KWAKU Administration Multi-Ingredient Lotion 1 applic 11/07/16 11:55 Eucerin (Large Jar) - TP BID PRN DRY SKIN Scopolamine HBr 1 patch 12/10/16 11:00 03/22/17 10:14 Transderm-Scop - TD 1 patch Q72H KWAKU Administration ASSESSMENT/PLAN Respiratory distress, improved --breathing regular, not labored; no accessory muscle use, no periods of apnea or gasping --continue morphine drip Urinary retention --castellano inserted 03/14/17, draining clear yellow urine Hypertension --PEG tube working, resumed PO anti-hypertensives Continue IV fluids Dispo: DNR/DNI. Comfort measures. Visit type - Emergency Visit Emergency Visit: Yes ED Registration Date: 06/27/15 Care time: The patient presented to the Emergency Department on the above date and was hospitalized for further evaluation of their emergent condition. - New Patient This patient is new to me today: No - Critical Care Critical Care patient: No
[2017-03-24] MEDS: amLODIPine BESYLATE 10 MG TABLET (FP) GT SCH (10:06)
[2017-03-24] MEDS: LISINOPRIL 20 MG TABLET (FP) GT SCH (10:06)
[2017-03-24] MEDS: METOPROLOL TARTRATE 50 MG TABLET (FP) GT SCH (10:09)
[2017-03-24] MEDS: DEXTROSE 5%-0.45% SALINE 1,000 ML IV SCH ×2 (12:07→21:26)
[2017-03-24] MEDS: MORPHINE 100 MG in SODIUM CHLORIDE 98 ML IVPB SCH (12:10)
--- NOTE | 2017-03-24 16:24 | PN ---
Physical Exam: SUBJECTIVE: Patient seen and examined OBJECTIVE: Vital Signs Period Temp Pulse Resp BP Sys/Santiago Pulse Ox Last 24 Hr 98 F-98.3 F 72-90 18-20 151-158/95-97 98-99 GENERAL/NEURO: Eyes open. Non-verbal. Does not follow commands. Resting comfortably. No apparent distress. LUNGS: Breathing is regular, not labored. No accessory muscle use. No observed periods of apnea. HEART: Regular rate and rhythm, S1, S2 without murmur, rub or gallop. ABDOMEN: soft, not tender, not distended; no hiccups EXTREMITIES: 2+ pulses, warm, well-perfused, no edema. Active Medications Generic Name Dose Route Start Last Admin Trade Name Freq PRN Reason Stop Dose Admin Amlodipine Besylate 10 mg 03/23/17 12:45 03/24/17 10:06 Norvasc - GT 10 mg DAILY KWAKU Administration Dextrose/Sodium Chloride 1,000 mls @ 100 mls/hr 03/03/17 10:45 03/24/17 12:07 D5-1/2ns - IV 100 mls/hr ASDIR KWAKU Administration Morphine Sulfate 100 mg/ 100 mls @ 1 mls/hr 03/15/17 03:15 03/24/17 12:10 Sodium Chloride IVPB Not Given TITR KWAKU Protocol 1 MG/HR Lisinopril 40 mg 03/23/17 12:45 03/24/17 10:06 Prinivil GT 40 mg DAILY KWAKU Administration Metoprolol Tartrate 100 mg 03/23/17 12:37 03/24/17 10:09 Lopressor - GT 100 mg DAILY KWAKU Administration Multi-Ingredient Lotion 1 applic 11/07/16 11:55 Eucerin (Large Jar) - TP BID PRN DRY SKIN Scopolamine HBr 1 patch 12/10/16 11:00 03/22/17 10:14 Transderm-Scop - TD 1 patch Q72H KWAKU Administration ASSESSMENT/PLAN Respiratory distress, improved --breathing regular, not labored; no accessory muscle use, no periods of apnea or gasping --continue morphine drip presently running at 2mg/hr Urinary retention --castellano inserted 03/14/17, draining clear yellow urine Hypertension --PEG tube working, resumed PO anti-hypertensives Continue IV fluids Dispo: DNR/DNI. Comfort measures. Visit type - Emergency Visit Emergency Visit: Yes ED Registration Date: 06/27/15 Care time: The patient presented to the Emergency Department on the above date and was hospitalized for further evaluation of their emergent condition. - New Patient This patient is new to me today: No - Critical Care Critical Care patient: No
[2017-03-25] MEDS: MORPHINE 100 MG in SODIUM CHLORIDE 98 ML IVPB SCH (06:58)
[2017-03-25] MEDS: METOPROLOL TARTRATE 50 MG TABLET (FP) GT SCH ×2 (10:11→21:37)
[2017-03-25] MEDS: LISINOPRIL 20 MG TABLET (FP) GT SCH (10:12)
[2017-03-25] MEDS: SCOPOLAMINE HYDROBROMIDE 1 PATCH PATCH.TD72 TD SCH (10:12)
[2017-03-25] MEDS: amLODIPine BESYLATE 10 MG TABLET (FP) GT SCH (11:12)
--- NOTE | 2017-03-25 16:01 | PN ---
Physical Exam: SUBJECTIVE: Patient seen and examined at bedside. Peripheral access lost last night. RN placed new line. Patient low moaning. OBJECTIVE: Vital Signs Period Temp Pulse Resp BP Sys/Santiago Pulse Ox Last 24 Hr 98.7 F-98.9 F 77-95 20-20 138-161/72-100 96 GENERAL/NEURO: Eyes open. Non-verbal. Does not follow commands. Low moaning. LUNGS: Breathing is regular, not labored. No accessory muscle use. No observed periods of apnea. HEART: Regular rate and rhythm, S1, S2 without murmur, rub or gallop. ABDOMEN: soft, not tender, not distended; no hiccups EXTREMITIES: 2+ pulses, warm, well-perfused, no edema. Active Medications Generic Name Dose Route Start Last Admin Trade Name Freq PRN Reason Stop Dose Admin Amlodipine Besylate 10 mg 03/23/17 12:45 03/25/17 11:12 Norvasc - GT 10 mg DAILY KWAKU Administration Dextrose/Sodium Chloride 1,000 mls @ 100 mls/hr 03/03/17 10:45 03/24/17 21:26 D5-1/2ns - IV 100 mls/hr ASDIR KWAKU Administration Morphine Sulfate 100 mg/ 100 mls @ 1 mls/hr 03/15/17 03:15 03/25/17 06:58 Sodium Chloride IVPB Not Given TITR KWAKU Protocol 1 MG/HR Lisinopril 40 mg 03/23/17 12:45 03/25/17 10:12 Prinivil GT 40 mg DAILY KWAKU Administration Metoprolol Tartrate 100 mg 03/25/17 10:00 03/25/17 10:11 Lopressor - GT 100 mg BID KWAKU Administration Multi-Ingredient Lotion 1 applic 11/07/16 11:55 Eucerin (Large Jar) - TP BID PRN DRY SKIN Scopolamine HBr 1 patch 12/10/16 11:00 03/25/17 10:12 Transderm-Scop - TD 1 patch Q72H KWAKU Administration ASSESSMENT/PLAN Respiratory distress --peripheral IV access re-established, re-start morphine drip --order entered for PICC line; discuss with Dr. Quezada on Sunday Urinary retention --castellano inserted 03/14/17 Hypertension --anti-hypertensives via PEG Continue IV fluids Dispo: DNR/DNI. Comfort measures. Visit type - Emergency Visit Emergency Visit: Yes ED Registration Date: 06/27/15 Care time: The patient presented to the Emergency Department on the above date and was hospitalized for further evaluation of their emergent condition. - New Patient This patient is new to me today: No - Critical Care Critical Care patient: No
[2017-03-25] MEDS: DEXTROSE 5%-0.45% SALINE 1,000 ML IV SCH (20:10)
[2017-03-26] MEDS: MORPHINE 100 MG in SODIUM CHLORIDE 98 ML IVPB SCH (02:42)
[2017-03-26] MEDS: DEXTROSE 5%-0.45% SALINE 1,000 ML IV SCH ×2 (06:15→18:16)
[2017-03-26] MEDS: LISINOPRIL 20 MG TABLET (FP) GT SCH (15:24)
[2017-03-26] MEDS: METOPROLOL TARTRATE 50 MG TABLET (FP) GT SCH ×2 (15:24→22:56)
[2017-03-26] MEDS: amLODIPine BESYLATE 10 MG TABLET (FP) GT SCH (15:24)
[2017-03-27] MEDS: MORPHINE 100 MG in SODIUM CHLORIDE 98 ML IVPB SCH (02:59)
[2017-03-27] MEDS: DEXTROSE 5%-0.45% SALINE 1,000 ML IV SCH ×3 (03:03→23:23)
--- NOTE | 2017-03-27 09:06 | PN ---
Progress Note (short form) - Note Progress Note: Subjective: The patient was seen and examined at the bedside, non-verbal. Tolerating room air well. Current Medications Generic Name Dose Route Start Last Admin Trade Name Frefox PRN Reason Stop Dose Admin Amlodipine Besylate 10 mg 03/23/17 12:45 03/26/17 15:24 Norvasc - GT 10 mg DAILY KWAKU Administration IV Flush 8 ml 03/27/17 09:05 Picc Line Flush IVPUSH PRN PRN Protocol Dextrose/Sodium Chloride 1,000 mls @ 100 mls/hr 03/03/17 10:45 03/27/17 03:03 D5-1/2ns - IV 100 mls/hr ASDIR KWAKU Administration Morphine Sulfate 100 mg/ 100 mls @ 1 mls/hr 03/15/17 03:15 03/27/17 02:59 Sodium Chloride IVPB 2 mls/hr TITR KWAKU Administration Protocol 1 MG/HR Lisinopril 40 mg 03/23/17 12:45 03/26/17 15:24 Prinivil GT 40 mg DAILY KWAKU Administration Metoprolol Tartrate 100 mg 03/25/17 10:00 03/26/17 22:56 Lopressor - GT 100 mg BID KWAKU Administration Multi-Ingredient Lotion 1 applic 11/07/16 11:55 Eucerin (Large Jar) - TP BID PRN DRY SKIN Scopolamine HBr 1 patch 12/10/16 11:00 03/25/17 10:12 Transderm-Scop - TD 1 patch Q72H KWAKU Administration Objective: Vital Signs Period Temp Pulse Resp BP Sys/Santiago Pulse Ox Last 24 Hr 98 F-99.1 F 69-76 18-20 140-149/80-91 96-96 Physical Exam: General: No acute distress HEENT: Tracheal stoma Neuro: Opens eyes to verbal stimuli Pulm: CTA anteriorly CV: RRR, S1S2 Abd: Soft, non-distended. Normoactive bowel sounds. Peg tube c/d/i Ext: Warm, well-perfused. 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 Plan: 1. Anoxic brain injury s/p brainstem CVAs - Mental status unchanged 2. Respiratory failure secondary to anoxic brain injury - Cont O2 via room air, NC prn - Trach removed 09/09/16 - Morphine gtt 3. HTN - Continue Lisinopril, Lopressor, and Norvasc through G-tube 4. F/E/N: - Continue IV fluids 5. Prophylaxis: - SCDs bilaterally - No chemical anticoagulation 2/2 recent GI bleed - Functional quadriplegia - Attempt to call daughter for consent for PICC line placement, awaiting call back CODE STATUS: DNR/DNI Visit type - Emergency Visit Emergency Visit: Yes ED Registration Date: 06/27/15 Care time: The patient presented to the Emergency Department on the above date and was hospitalized for further evaluation of their emergent condition. - New Patient This patient is new to me today: No - Critical Care Critical Care patient: No
[2017-03-27] MEDS: METOPROLOL TARTRATE 50 MG TABLET (FP) GT SCH ×2 (11:14→22:06)
[2017-03-27] MEDS: LISINOPRIL 20 MG TABLET (FP) GT SCH (11:14)
[2017-03-27] MEDS: amLODIPine BESYLATE 10 MG TABLET (FP) GT SCH (11:14)
[2017-03-28] MEDS: MORPHINE 100 MG in SODIUM CHLORIDE 98 ML IVPB SCH ×2 (02:12→06:06)
--- NOTE | 2017-03-28 09:25 | PN ---
Progress Note (short form) - Note Progress Note: Subjective: The patient was seen and examined at the bedside, non-verbal. Tolerating room air well. Current Medications Generic Name Dose Route Start Last Admin Trade Name Frefox PRN Reason Stop Dose Admin Amlodipine Besylate 10 mg 03/23/17 12:45 03/27/17 11:14 Norvasc - GT 10 mg DAILY KWAKU Administration IV Flush 8 ml 03/27/17 09:05 Picc Line Flush IVPUSH PRN PRN Protocol Dextrose/Sodium Chloride 1,000 mls @ 100 mls/hr 03/03/17 10:45 03/27/17 23:23 D5-1/2ns - IV 100 mls/hr ASDIR KWAKU Administration Morphine Sulfate 100 mg/ 100 mls @ 1 mls/hr 03/15/17 03:15 03/28/17 06:06 Sodium Chloride IVPB Not Given TITR KWAKU Protocol 1 MG/HR Lisinopril 40 mg 03/23/17 12:45 03/27/17 11:14 Prinivil GT 40 mg DAILY KWAKU Administration Metoprolol Tartrate 100 mg 03/25/17 10:00 03/27/17 22:06 Lopressor - GT 100 mg BID KWAKU Administration Multi-Ingredient Lotion 1 applic 11/07/16 11:55 Eucerin (Large Jar) - TP BID PRN DRY SKIN Scopolamine HBr 1 patch 12/10/16 11:00 03/25/17 10:12 Transderm-Scop - TD 1 patch Q72H KWAKU Administration Objective: Vital Signs Period Temp Pulse Resp BP Sys/Santiago Pulse Ox Last 24 Hr 97.6 F-99 F 65-88 18-20 120-156/60-91 98-98 Physical Exam: General: No acute distress HEENT: Tracheal stoma Neuro: Opens eyes to verbal stimuli Pulm: CTA anteriorly CV: RRR, S1S2 Abd: Soft, non-distended. Normoactive bowel sounds. Peg tube c/d/i Ext: Warm, well-perfused. 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 Plan: 1. Abd tenderness, bile from g-tube, vomiting bile - No recorded bowel movement since 03/07/17 - Spoke to Carole, daughter, will order abd x-ray to evaluate for obstruction - Place g-tube to low wall suction 2. Anoxic brain injury s/p brainstem CVAs - Mental status unchanged 3. Respiratory failure secondary to anoxic brain injury - Cont O2 via room air, NC prn - Trach removed 09/09/16 - Morphine gtt 4. HTN - Continue Lisinopril, Lopressor, and Norvasc through G-tube 5. F/E/N: - Continue IV fluids 6. Prophylaxis: - SCDs bilaterally - No chemical anticoagulation 2/2 recent GI bleed - Functional quadriplegia CODE STATUS: DNR/DNI Visit type - Emergency Visit Emergency Visit: Yes ED Registration Date: 06/27/15 Care time: The patient presented to the Emergency Department on the above date and was hospitalized for further evaluation of their emergent condition. - New Patient This patient is new to me today: No - Critical Care Critical Care patient: No
[2017-03-28] MEDS: DEXTROSE 5%-0.45% SALINE 1,000 ML IV SCH (18:33)
[2017-03-28] MEDS: amLODIPine BESYLATE 10 MG TABLET (FP) GT SCH (18:33)
[2017-03-28] MEDS: LISINOPRIL 20 MG TABLET (FP) GT SCH (18:33)
[2017-03-28] MEDS: METOPROLOL TARTRATE 50 MG TABLET (FP) GT SCH ×2 (18:33→21:33)
[2017-03-28] MEDS: SCOPOLAMINE HYDROBROMIDE 1 PATCH PATCH.TD72 TD SCH (18:34)
[2017-03-29] MEDS: DEXTROSE 5%-0.45% SALINE 1,000 ML IV SCH ×4 (03:19→21:47)
[2017-03-29] MEDS: amLODIPine BESYLATE 10 MG TABLET (FP) GT SCH (10:20)
[2017-03-29] MEDS: LISINOPRIL 20 MG TABLET (FP) GT SCH (10:20)
[2017-03-29] MEDS: METOPROLOL TARTRATE 50 MG TABLET (FP) GT SCH ×2 (10:20→21:12)
--- NOTE | 2017-03-29 12:20 | PN ---
Progress Note (short form) - Note Progress Note: Subjective: The patient was seen and examined at the bedside, non-verbal. Tolerating room air well. Abd x-ray with bowel obstruction vs. ileus Placed g-tube to suction per GI Awaiting GI reevaluation Current Medications Generic Name Dose Route Start Last Admin Trade Name Freq PRN Reason Stop Dose Admin Amlodipine Besylate 10 mg 03/23/17 12:45 03/29/17 10:20 Norvasc - GT 10 mg DAILY KWAKU Administration IV Flush 8 ml 03/27/17 09:05 Picc Line Flush IVPUSH PRN PRN Protocol Dextrose/Sodium Chloride 1,000 mls @ 100 mls/hr 03/03/17 10:45 03/29/17 10:54 D5-1/2ns - IV Not Given ASDIR KWAKU Lisinopril 40 mg 03/23/17 12:45 03/29/17 10:20 Prinivil GT 40 mg DAILY KWAKU Administration Metoprolol Tartrate 100 mg 03/25/17 10:00 03/29/17 10:20 Lopressor - GT 100 mg BID KWAKU Administration Multi-Ingredient Lotion 1 applic 11/07/16 11:55 Eucerin (Large Jar) - TP BID PRN DRY SKIN Scopolamine HBr 1 patch 12/10/16 11:00 03/28/17 18:34 Transderm-Scop - TD 1 patch Q72H KWAKU Administration Objective: Vital Signs Period Temp Pulse Resp BP Sys/Santiago Pulse Ox Last 24 Hr 97.6 F-98.6 F 80-86 20-20 140-152/65-83 99 Physical Exam: General: No acute distress HEENT: Tracheal stoma Neuro: Opens eyes to verbal stimuli Pulm: CTA anteriorly CV: RRR, S1S2 Abd: Soft, non-distended. Normoactive bowel sounds. Peg tube c/d/i Ext: Warm, well-perfused. 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 Plan: 1. Abd X-ray with obstruction vs. ileus - No recorded bowel movement since 5/10/17 - G-tube to suction per GI - Awaiting GI reevaluation 2. Anoxic brain injury s/p brainstem CVAs - Mental status unchanged 3. Respiratory failure secondary to anoxic brain injury - Cont O2 via room air, NC prn - Trach removed 09/09/16 - Morphine gtt 4. HTN - Continue Lisinopril, Lopressor, and Norvasc through G-tube 5. F/E/N: - Continue IV fluids 6. Prophylaxis: - SCDs bilaterally - No chemical anticoagulation 2/2 recent GI bleed - Functional quadriplegia CODE STATUS: DNR/DNI Visit type - Emergency Visit Emergency Visit: Yes ED Registration Date: 06/27/15 Care time: The patient presented to the Emergency Department on the above date and was hospitalized for further evaluation of their emergent condition. - New Patient This patient is new to me today: No - Critical Care Critical Care patient: No
[2017-03-30] MEDS: MORPHINE 100 MG in SODIUM CHLORIDE 98 ML IVPB SCH ×2 (00:18→19:36)
[2017-03-30] MEDS: DEXTROSE 5%-0.45% SALINE 1,000 ML IV SCH ×3 (09:28→20:38)
[2017-03-30] MEDS: METOPROLOL TARTRATE 50 MG TABLET (FP) GT SCH ×2 (10:40→21:29)
[2017-03-30] MEDS: LISINOPRIL 20 MG TABLET (FP) GT SCH (10:40)
[2017-03-30] MEDS: amLODIPine BESYLATE 10 MG TABLET (FP) GT SCH (10:41)
--- NOTE | 2017-03-30 13:50 | PN ---
Progress Note (short form) - Note Progress Note: Subjective: The patient was seen and examined at the bedside, non-verbal. Tolerating room air well. Still with G-tube to suction Current Medications Generic Name Dose Route Start Last Admin Trade Name Ginette PRN Reason Stop Dose Admin Amlodipine Besylate 10 mg 03/23/17 12:45 03/30/17 10:41 Norvasc - GT 10 mg DAILY KWAKU Administration IV Flush 8 ml 03/27/17 09:05 Picc Line Flush IVPUSH PRN PRN Protocol Dextrose/Sodium Chloride 1,000 mls @ 100 mls/hr 03/03/17 10:45 03/30/17 09:28 D5-1/2ns - IV 100 mls/hr ASDIR KWAKU Administration Morphine Sulfate 100 mg/ 100 mls @ 2 mls/hr 03/29/17 17:00 03/30/17 00:18 Sodium Chloride IVPB 2 mls/hr TITR KWAKU Administration Protocol 2 MG/HR Lisinopril 40 mg 03/23/17 12:45 03/30/17 10:40 Prinivil GT 40 mg DAILY KWAKU Administration Metoprolol Tartrate 100 mg 03/25/17 10:00 03/30/17 10:40 Lopressor - GT 100 mg BID KWAKU Administration Morphine Sulfate 0.5 mg 03/29/17 16:58 Morphine Injection - IVPUSH Q4H PRN PAIN Multi-Ingredient Lotion 1 applic 11/07/16 11:55 Eucerin (Large Jar) - TP BID PRN DRY SKIN Scopolamine HBr 1 patch 12/10/16 11:00 03/28/17 18:34 Transderm-Scop - TD 1 patch Q72H KWAKU Administration Objective: Vital Signs Period Temp Pulse Resp BP Sys/Santiago Pulse Ox Last 24 Hr 98.4 F-99.4 F 75-95 20-20 126-147/72-87 96-97 Physical Exam: General: No acute distress HEENT: Tracheal stoma Neuro: Opens eyes to verbal stimuli Pulm: CTA anteriorly CV: RRR, S1S2 Abd: Soft, non-distended. Normoactive bowel sounds. Peg tube c/d/i Ext: Warm, well-perfused. 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 Plan: 1. Abd X-ray with obstruction vs. ileus - No recorded bowel movement since 03/07/17 - G-tube to suction per GI - Morphine gtt - Awaiting GI reevaluation 2. Anoxic brain injury s/p brainstem CVAs - Mental status unchanged 3. Respiratory failure secondary to anoxic brain injury - Cont O2 via room air, NC prn - Trach removed 09/09/16 4. HTN - Continue Lisinopril, Lopressor, and Norvasc through G-tube 5. F/E/N: - Continue IV fluids 6. Prophylaxis: - SCDs bilaterally - No chemical anticoagulation 2/2 recent GI bleed - Functional quadriplegia CODE STATUS: DNR/DNI Visit type - Emergency Visit Emergency Visit: Yes ED Registration Date: 06/27/15 Care time: The patient presented to the Emergency Department on the above date and was hospitalized for further evaluation of their emergent condition. - New Patient This patient is new to me today: No - Critical Care Critical Care patient: No
[2017-03-31] MEDS: DEXTROSE 5%-0.45% SALINE 1,000 ML IV SCH ×3 (06:12→13:16)
[2017-03-31] MEDS: METOPROLOL TARTRATE 50 MG TABLET (FP) GT SCH ×2 (10:25→22:33)
[2017-03-31] MEDS: LISINOPRIL 20 MG TABLET (FP) GT SCH (10:25)
[2017-03-31] MEDS: amLODIPine BESYLATE 10 MG TABLET (FP) GT SCH (10:25)
[2017-03-31] MEDS: SCOPOLAMINE HYDROBROMIDE 1 PATCH PATCH.TD72 TD SCH (10:36)
--- NOTE | 2017-03-31 12:17 | PN ---
Progress Note (short form) - Note Progress Note: Subjective: no events over night . Unable to obtain hx Objective: Vital Signs: Last Vital Signs Temp Pulse Resp BP Pulse Ox 98.9 F 71 18 137/69 96 03/31/17 09:05 03/31/17 09:05 03/31/17 09:05 03/31/17 09:05 03/31/17 09:00 Intake & Output 03/28/17 03/29/17 03/30/17 03/31/17 23:59 23:59 23:59 23:59 Intake Total 2718 1344 2347.0 Output Total 1999 1700 2450 600 Balance 718 -356 -103.0 -600 Physical Exam: NAD , opens eye, tracks . looks comfortable CV: RRR Lungs : clear anteriorly, withdecreased breath sounds at bases Ext: trace pitting edema on feet Abd : soft, NT, ND , hyperactive BS Imaging: [facility] reviewed. Assessment/Plan: 76 y/o unfortunate gentleman who presented to [facility] almost 2 yr ago with rectal bleed . He had a complicated hospital stay, and now he has anoxic brain injury with an active issue of SBO. 1- SBO: managed conservatively. - cont IVF - cont suction through PEG - cont morphine gtt for pain and pRN morphine for break though pain. 2- HTN: cont current meds 3- Code DNR/DNI Visit type - Emergency Visit Emergency Visit: Yes ED Registration Date: 06/27/15 Care time: The patient presented to the Emergency Department on the above date and was hospitalized for further evaluation of their emergent condition. - New Patient This patient is new to me today: No - Critical Care Critical Care patient: No
[2017-03-31] MEDS: MORPHINE 100 MG in SODIUM CHLORIDE 98 ML IVPB SCH (18:15)
[2017-04-01] MEDS: DEXTROSE 5%-0.45% SALINE 1,000 ML IV SCH ×3 (02:16→21:25)
[2017-04-01] MEDS: amLODIPine BESYLATE 10 MG TABLET (FP) GT SCH (09:52)
[2017-04-01] MEDS: LISINOPRIL 20 MG TABLET (FP) GT SCH (09:52)
[2017-04-01] MEDS: METOPROLOL TARTRATE 50 MG TABLET (FP) GT SCH ×2 (09:52→21:26)
--- NOTE | 2017-04-01 13:54 | PN ---
Physical Exam: SUBJECTIVE: Patient seen and examined. Appears calm, no current distress OBJECTIVE: Vital Signs Period Temp Pulse Resp BP Sys/Santiago Pulse Ox Last 24 Hr 98.2 F-99 F 63-83 18-20 101-145/61-85 97-98 PE HEENT: Tracheal stoma Neuro: Opens eyes to verbal stimuli Pulm: Clear anteriorly CV: s1 s2 rrr no mrg Abd: Soft, nd, Peg tube c/d/i Ext: Warm, no edema, foot drop Active Medications Generic Name Dose Route Start Last Admin Trade Name Freq PRN Reason Stop Dose Admin Amlodipine Besylate 10 mg 03/23/17 12:45 04/01/17 09:52 Norvasc - GT 10 mg DAILY KWAKU Administration IV Flush 8 ml 03/27/17 09:05 Picc Line Flush IVPUSH PRN PRN Protocol Morphine Sulfate 100 mg/ 100 mls @ 2 mls/hr 03/29/17 17:00 03/31/17 18:15 Sodium Chloride IVPB 2 mls/hr TITR KWAKU Administration Protocol 2 MG/HR Dextrose/Sodium Chloride 1,000 mls @ 100 mls/hr 03/31/17 12:04 04/01/17 02:16 D5-1/2ns - IV 100 mls/hr ASDIR KWAKU Administration Lisinopril 40 mg 03/23/17 12:45 04/01/17 09:52 Prinivil GT 40 mg DAILY KWAKU Administration Metoprolol Tartrate 100 mg 03/25/17 10:00 04/01/17 09:52 Lopressor - GT 100 mg BID KWAKU Administration Morphine Sulfate 0.5 mg 03/29/17 16:58 Morphine Injection - IVPUSH Q4H PRN PAIN Multi-Ingredient Lotion 1 applic 11/07/16 11:55 Eucerin (Large Jar) - TP BID PRN DRY SKIN Scopolamine HBr 1 patch 12/10/16 11:00 03/31/17 10:36 Transderm-Scop - TD 1 patch Q72H KWAKU Administration Assessment: 75 year old male with PMHx of HTN, IDDM, inguinal hernia admitted with diverticular bleed s/p Right hemicolectomy with 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 Plan: 1. Obstruction vs. ileus - Conservative mgmt - G-tube to suction per GI - Morphine gtt 2. Anoxic brain injury s/p brainstem CVAs - Mental status unchanged 3. Respiratory failure secondary to anoxic brain injury - Cont O2 via room air, NC prn - Trach removed 09/09/16 4. HTN - Continue Lisinopril, Lopressor, and Norvasc through G-tube 5. F/E/N - Continue IV fluids 6. Prophylaxis - SCDs bilaterally - No chemical anticoagulation 2/2 recent GI bleed - Functional quadriplegia CODE STATUS: DNR/DNI Visit type - Emergency Visit Emergency Visit: Yes ED Registration Date: 06/27/15 Care time: The patient presented to the Emergency Department on the above date and was hospitalized for further evaluation of their emergent condition. - New Patient This patient is new to me today: No - Critical Care Critical Care patient: No
[2017-04-01] MEDS: MORPHINE 100 MG in SODIUM CHLORIDE 98 ML IVPB SCH (18:15)
[2017-04-02] MEDS: DEXTROSE 5%-0.45% SALINE 1,000 ML IV SCH ×4 (06:47→18:50)
[2017-04-02] MEDS: METOPROLOL TARTRATE 50 MG TABLET (FP) GT SCH ×2 (12:58→21:48)
[2017-04-02] MEDS: LISINOPRIL 20 MG TABLET (FP) GT SCH (12:59)
[2017-04-02] MEDS: amLODIPine BESYLATE 10 MG TABLET (FP) GT SCH (12:59)
[2017-04-02] MEDS: MORPHINE 100 MG in SODIUM CHLORIDE 98 ML IVPB SCH (17:19)
--- NOTE | 2017-04-02 18:00 | PN ---
Physical Exam: SUBJECTIVE: Patient seen and examined. Per RN he has been hypotensive. Did increase fluids to 150cc/hr x1 hr and lowered morphine gtt without improvement. Now pt coughing bile, suction assessed, will decrease fluids to 75cc/hr and up titrate morphine gtt for comfort. Pt is comfort care OBJECTIVE: Vital Signs Period Temp Pulse Resp BP Sys/Santiago Pulse Ox Last 24 Hr 98.1 F-99 F 75-117 18-20 83-139/51-85 97-97 PE HEENT: Tracheal stoma Neuro: Opens eyes to verbal stimuli and touch Pulm: Clear anteriorly + coughing green bile CV: s1 s2 rrr no mrg Abd: Soft, nd, Peg tube c/d/i Ext: cool LE, no edema, foot drop Active Medications Generic Name Dose Route Start Last Admin Trade Name Freq PRN Reason Stop Dose Admin Amlodipine Besylate 10 mg 03/23/17 12:45 04/02/17 12:59 Norvasc - GT Not Given DAILY KWAKU IV Flush 8 ml 03/27/17 09:05 Picc Line Flush IVPUSH PRN PRN Protocol Morphine Sulfate 100 mg/ 100 mls @ 2 mls/hr 03/29/17 17:00 04/02/17 17:19 Sodium Chloride IVPB 2 mls/hr TITR KWAKU Administration Protocol 2 MG/HR Dextrose/Sodium Chloride 1,000 mls @ 75 mls/hr 04/02/17 17:55 D5-1/2ns - IV ASDIR KWAKU Lisinopril 40 mg 03/23/17 12:45 04/02/17 12:59 Prinivil GT Not Given DAILY KWAKU Metoprolol Tartrate 100 mg 03/25/17 10:00 04/02/17 12:58 Lopressor - GT Not Given BID KWAKU Multi-Ingredient Lotion 1 applic 11/07/16 11:55 Eucerin (Large Jar) - TP BID PRN DRY SKIN Scopolamine HBr 1 patch 12/10/16 11:00 03/31/17 10:36 Transderm-Scop - TD 1 patch Q72H KWAKU Administration Assessment: 75 year old male with PMHx of HTN, IDDM, inguinal hernia admitted with diverticular bleed s/p Right hemicolectomy with 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 Plan: 1. Obstruction vs. ileus - Conservative mgmt - G-tube to suction per GI - Morphine gtt and titrate as needed 2. Anoxic brain injury s/p brainstem CVAs - Mental status unchanged 3. Respiratory failure secondary to anoxic brain injury - Cont O2 via room air, NC prn - Trach removed 09/09/16 4. HTN - Hold BP meds for Hypotension - hold Lisinopril, Lopressor, and Norvasc through G-tube 5. F/E/N - Continue IV fluids at 75cc/hr for increase coughing 6. Prophylaxis - SCDs bilaterally - No chemical anticoagulation 2/2 recent GI bleed - Functional quadriplegia CODE STATUS: DNR/DNI Visit type - Emergency Visit Emergency Visit: Yes ED Registration Date: 06/27/15 Care time: The patient presented to the Emergency Department on the above date and was hospitalized for further evaluation of their emergent condition. - New Patient This patient is new to me today: No - Critical Care Critical Care patient: No
[2017-04-03] MEDS: amLODIPine BESYLATE 10 MG TABLET (FP) GT SCH (10:11)
[2017-04-03] MEDS: METOPROLOL TARTRATE 50 MG TABLET (FP) GT SCH (10:11)
[2017-04-03] MEDS: LISINOPRIL 20 MG TABLET (FP) GT SCH (10:12)
[2017-04-03] MEDS: SCOPOLAMINE HYDROBROMIDE 1 PATCH PATCH.TD72 TD SCH (10:21)
--- NOTE | 2017-04-03 10:53 | PN ---
Physical Exam: SUBJECTIVE: Patient seen and examined. Currently he appears calm. BP stable. Events: - Vomited this AM - ~550cc dark green bile GTube outpt overnight OBJECTIVE: Vital Signs Period Temp Pulse Resp BP Sys/Santiago Pulse Ox Last 24 Hr 97.9 F-98.3 F 72-85 18-20 79-120/41-74 PE HEENT: Tracheal stoma Neuro: Opens eyes to verbal stimuli and touch Pulm: Clear anteriorly + coughing green bile CV: s1 s2 rrr no mrg Abd: Soft,Peg tube c/d/i Ext: cool LE, no edema, foot drop Active Medications Generic Name Dose Route Start Last Admin Trade Name Freq PRN Reason Stop Dose Admin Amlodipine Besylate 10 mg 03/23/17 12:45 04/03/17 10:11 Norvasc - GT Not Given DAILY GRISELDA IV Flush 8 ml 03/27/17 09:05 Picc Line Flush IVPUSH PRN PRN Protocol Morphine Sulfate 100 mg/ 100 mls @ 2 mls/hr 03/29/17 17:00 04/02/17 17:19 Sodium Chloride IVPB 2 mls/hr TITR GRISELDA Administration Protocol 2 MG/HR Dextrose/Sodium Chloride 1,000 mls @ 75 mls/hr 04/02/17 17:55 04/02/17 18:50 D5-1/2ns - IV 75 mls/hr ASDIR GRISELDA Administration Lisinopril 40 mg 03/23/17 12:45 04/03/17 10:12 Prinivil GT Not Given DAILY GRISELDA Metoprolol Tartrate 100 mg 03/25/17 10:00 04/03/17 10:11 Lopressor - GT Not Given BID GRISELDA Multi-Ingredient Lotion 1 applic 11/07/16 11:55 Eucerin (Large Jar) - TP BID PRN DRY SKIN Ondansetron HCl 4 mg 04/03/17 08:15 04/03/17 10:21 Zofran Odt - SL 4 mg Q6H GRISELDA Administration Scopolamine HBr 1 patch 12/10/16 11:00 04/03/17 10:21 Transderm-Scop - TD 1 patch Q72H GRISELDA Administration Assessment: 75 year old male with PMHx of HTN, IDDM, inguinal hernia admitted with diverticular bleed s/p Right hemicolectomy with 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 Plan: 1. Obstruction vs. ileus - Conservative mgmt - G-tube to suction per GI - Morphine gtt and titrate as needed - Add zofran 4mg q6 griselda for vomiting 2. Anoxic brain injury s/p brainstem CVAs - Mental status unchanged 3. Respiratory failure secondary to anoxic brain injury - Cont O2 via room air, NC prn - Trach removed 09/09/16 4. HTN - Hold BP meds for Hypotension - hold Lisinopril, Lopressor, and Norvasc through G-tube 5. F/E/N - IVF 75cc/hr 6. Prophylaxis - SCDs bilaterally - No chemical anticoagulation 2/2 recent GI bleed - Functional quadriplegia CODE STATUS: DNR/DNI Visit type - Emergency Visit Emergency Visit: Yes ED Registration Date: 06/27/15 Care time: The patient presented to the Emergency Department on the above date and was hospitalized for further evaluation of their emergent condition. - New Patient This patient is new to me today: No - Critical Care Critical Care patient: No - Discharge Referral Referred to [facility] No
[2017-04-03] MEDS: ONDANSETRON 4 MG/2 ML VIAL IVPUSH SCH ×3 (11:48→22:53)
[2017-04-03] MEDS: DEXTROSE 5%-0.45% SALINE 1,000 ML IV SCH ×2 (14:52→18:33)
[2017-04-03] MEDS: MORPHINE 100 MG in SODIUM CHLORIDE 98 ML IVPB SCH ×2 (18:34→18:59)
[2017-04-04] MEDS: ONDANSETRON 4 MG/2 ML VIAL IVPUSH SCH ×3 (05:52→21:16)
[2017-04-04] MEDS: DEXTROSE 5%-0.45% SALINE 1,000 ML IV SCH ×2 (05:55→18:30)
--- NOTE | 2017-04-04 12:51 | PN ---
Physical Exam: SUBJECTIVE: Patient seen and examined. No acute events overnight. Morphine gtt 3mg, ~200cc drainage OBJECTIVE: Vital Signs Period Temp Pulse Resp BP Sys/Santiago Pulse Ox Last 24 Hr 97.8 F-99.0 F 84-95 16-20 89-107/49-65 97 PE HEENT: Tracheal stoma Neuro: Opens eyes to verbal stimuli and touch Pulm: Clear anteriorly CV: s1 s2 rrr no mrg Abd: Soft, Peg tube c/d/i Ext: cool LE, no edema, foot drop Active Medications Generic Name Dose Route Start Last Admin Trade Name Freq PRN Reason Stop Dose Admin IV Flush 8 ml 03/27/17 09:05 Picc Line Flush IVPUSH PRN PRN Protocol Morphine Sulfate 100 mg/ 100 mls @ 2 mls/hr 03/29/17 17:00 04/03/17 18:59 Sodium Chloride IVPB 3 mls/hr TITR GRISELDA Administration Protocol 2 MG/HR Dextrose/Sodium Chloride 1,000 mls @ 75 mls/hr 04/02/17 17:55 04/04/17 05:55 D5-1/2ns - IV 75 mls/hr ASDIR GRISELDA Administration Multi-Ingredient Lotion 1 applic 11/07/16 11:55 Eucerin (Large Jar) - TP BID PRN DRY SKIN Ondansetron HCl 4 mg 04/03/17 11:00 04/04/17 11:54 Zofran Injection IVPUSH 4 mg Q6H GRISELDA Administration Scopolamine HBr 1 patch 12/10/16 11:00 04/03/17 10:21 Transderm-Scop - TD 1 patch Q72H GRISELDA Administration Assessment: 75 year old male with PMHx of HTN, IDDM, inguinal hernia admitted with diverticular bleed s/p Right hemicolectomy with 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 Plan: 1. Obstruction vs. ileus - Conservative mgmt - G-tube to suction per GI - Morphine gtt and titrate as needed - Zofran 4mg q6 griselda for vomiting 2. Anoxic brain injury s/p brainstem CVAs - Mental status unchanged 3. Respiratory failure secondary to anoxic brain injury - Cont O2 via room air, NC prn - Trach removed 09/09/16 4. Hypotension - Discontinued BP meds 5. F/E/N - IVF 75cc/hr 6. Prophylaxis - SCDs bilaterally - No chemical anticoagulation 2/2 recent GI bleed - Functional quadriplegia CODE STATUS: DNR/DNI Visit type - Emergency Visit Emergency Visit: Yes ED Registration Date: 06/27/15 Care time: The patient presented to the Emergency Department on the above date and was hospitalized for further evaluation of their emergent condition. - New Patient This patient is new to me today: No - Critical Care Critical Care patient: No
[2017-04-04] MEDS: MORPHINE 100 MG in SODIUM CHLORIDE 98 ML IVPB SCH (18:30)
[2017-04-05] MEDS: DEXTROSE 5%-0.45% SALINE 1,000 ML IV SCH ×2 (10:00→21:01)
[2017-04-05] MEDS: ONDANSETRON 4 MG/2 ML VIAL IVPUSH SCH ×2 (10:34→21:02)
--- NOTE | 2017-04-05 11:44 | PN ---
Physical Exam: SUBJECTIVE: Patient seen and examined. No acute issues overnight. Gastric fluid outpt overnight~700cc OBJECTIVE: Vital Signs Period Temp Pulse Resp BP Sys/Santiago Pulse Ox Last 24 Hr 98.0 F-99.6 F 84-90 14-18 88-115/48-57 94-95 PE HEENT: Tracheal stoma Neuro: Opens eyes to verbal stimuli and touch Pulm: Clear anteriorly CV: s1 s2 rrr no mrg Abd: Soft, Peg tube c/d/i Ext: cool LE, no edema, foot drop Active Medications Generic Name Dose Route Start Last Admin Trade Name Freq PRN Reason Stop Dose Admin IV Flush 8 ml 03/27/17 09:05 Picc Line Flush IVPUSH PRN PRN Protocol Morphine Sulfate 100 mg/ 100 mls @ 2 mls/hr 03/29/17 17:00 04/04/17 18:30 Sodium Chloride IVPB 3 mls/hr TITR GRISELDA Administration Protocol 2 MG/HR Dextrose/Sodium Chloride 1,000 mls @ 75 mls/hr 04/02/17 17:55 04/05/17 10:00 D5-1/2ns - IV 75 mls/hr ASDIR GRISELDA Administration Multi-Ingredient Lotion 1 applic 11/07/16 11:55 Eucerin (Large Jar) - TP BID PRN DRY SKIN Ondansetron HCl 4 mg 04/04/17 22:00 04/05/17 10:34 Zofran Injection IVPUSH 4 mg BID GRISELDA Administration Scopolamine HBr 1 patch 12/10/16 11:00 04/03/17 10:21 Transderm-Scop - TD 1 patch Q72H GRISELDA Administration Assessment: 75 year old male with PMHx of HTN, DM II, inguinal hernia admitted with diverticular bleed s/p Right hemicolectomy with 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 Plan: 1. Obstruction vs. ileus - Conservative mgmt - G-tube to suction per GI - Morphine gtt and titrate as needed - Zofran 4mg q6 griselda for vomiting 2. Anoxic brain injury s/p brainstem CVAs - Mental status unchanged 3. Respiratory failure secondary to anoxic brain injury - Cont O2 via room air, NC prn - Trach removed 09/09/16 4. Hypotension - Discontinued BP meds 5. F/E/N - IVF 75cc/hr 6. Prophylaxis - SCDs bilaterally - No chemical AC 2/2 GI bleed - Functional quadriplegia CODE STATUS: DNR/DNI Visit type - Emergency Visit Emergency Visit: Yes ED Registration Date: 06/27/15 Care time: The patient presented to the Emergency Department on the above date and was hospitalized for further evaluation of their emergent condition. - New Patient This patient is new to me today: No - Critical Care Critical Care patient: No
[2017-04-05] MEDS: MORPHINE 100 MG in SODIUM CHLORIDE 98 ML IVPB SCH (17:08)
--- NOTE | 2017-04-06 08:27 | PN ---
Progress Note (short form) - Note Progress Note: Subjective: The patient was seen and examined at the bedside, non-verbal. Tolerating room air well. Still with G-tube to suction, 950ml output yesterday Current Medications Generic Name Dose Route Start Last Admin Trade Name Ginette PRN Reason Stop Dose Admin IV Flush 8 ml 03/27/17 09:05 Picc Line Flush IVPUSH PRN PRN Protocol Morphine Sulfate 100 mg/ 100 mls @ 2 mls/hr 03/29/17 17:00 04/05/17 17:08 Sodium Chloride IVPB 3 mls/hr TITR KWAKU Administration Protocol 2 MG/HR Dextrose/Sodium Chloride 1,000 mls @ 75 mls/hr 04/02/17 17:55 04/05/17 21:01 D5-1/2ns - IV 75 mls/hr ASDIR KWAKU Administration Morphine Sulfate 1 mg 04/06/17 08:23 Morphine Injection - IVPUSH Q4H PRN PAIN Multi-Ingredient Lotion 1 applic 11/07/16 11:55 Eucerin (Large Jar) - TP BID PRN DRY SKIN Ondansetron HCl 4 mg 04/04/17 22:00 04/05/17 21:02 Zofran Injection IVPUSH 4 mg BID KWAKU Administration Scopolamine HBr 1 patch 12/10/16 11:00 04/03/17 10:21 Transderm-Scop - TD 1 patch Q72H KWAKU Administration Objective: Vital Signs Period Temp Pulse Resp BP Sys/Santiago Pulse Ox Last 24 Hr 98.2 F-100.7 F 84-97 12-16 76-98/42-57 94-95 Physical Exam: General: No acute distress HEENT: Tracheal stoma Neuro: Opens eyes to verbal stimuli Pulm: CTA anteriorly CV: RRR, S1S2 Abd: Soft, non-distended. Normoactive bowel sounds. Peg tube c/d/i Ext: Warm, well-perfused. 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 Plan: 1. Abd X-ray with obstruction vs. ileus - No recorded bowel movement since 03/07/17 - G-tube to suction per GI - Morphine gtt - Awaiting GI reevaluation! 2. Anoxic brain injury s/p brainstem CVAs - Mental status unchanged 3. Respiratory failure secondary to anoxic brain injury - Cont O2 via room air, NC prn - Trach removed 09/09/16 4. HTN - Continue Lisinopril, Lopressor, and Norvasc through G-tube 5. F/E/N: - Continue IV fluids 6. Prophylaxis: - SCDs bilaterally - No chemical anticoagulation 2/2 recent GI bleed - Functional quadriplegia CODE STATUS: DNR/DNI Visit type - Emergency Visit Emergency Visit: Yes ED Registration Date: 06/27/15 Care time: The patient presented to the Emergency Department on the above date and was hospitalized for further evaluation of their emergent condition. - New Patient This patient is new to me today: No - Critical Care Critical Care patient: No
[2017-04-06] MEDS: ONDANSETRON 4 MG/2 ML VIAL IVPUSH SCH ×2 (10:37→21:44)
[2017-04-06] MEDS: SCOPOLAMINE HYDROBROMIDE 1 PATCH PATCH.TD72 TD SCH (10:38)
[2017-04-06] MEDS: DEXTROSE 5%-0.45% SALINE 1,000 ML IV SCH ×2 (10:42→21:44)
[2017-04-06] MEDS: MORPHINE 100 MG in SODIUM CHLORIDE 98 ML IVPB SCH (17:33)
--- NOTE | 2017-04-07 07:36 | HOSP ---
Subjective - Review of Symptoms Events since last encounter: Hospitalist Encounter 21:10 Notified by primary RN, that the patient desaturated to 79% and was placed on 3LNC Patient is a DNR/DNI After review of the chart patient is on Comfort Measures on a Morphine Drip at 3ml/hr, primary RN was notified to remove the 3LNC. Per RN, the patient was grimacing appeared to be in discomfort, RN was told to increase the Morphine Drip to 4ml for comfort measures. Will continue to monitor Pulmonary: Yes: Other (Desaturation ) Physical Examination Vital Signs: Vital Signs Temperature 100.5 F H 04/06/17 18:28 Pulse Rate 87 04/06/17 18:28 Respiratory Rate 16 04/06/17 18:28 Blood Pressure 92/46 04/06/17 18:28 O2 Sat by Pulse Oximetry (%) 98 04/06/17 09:00 Labs: CBC, BMP 02/02/17 07:45 02/02/17 07:45
--- NOTE | 2017-04-07 08:54 | PN ---
Progress Note (short form) - Note Progress Note: Subjective: The patient was seen and examined at the bedside, non-verbal. Tolerating room air well. Still with G-tube to suction, 600ml output yesterday Patient appeared in distress this AM, grimacing. Morphine gtt increased to 4mg Current Medications Generic Name Dose Route Start Last Admin Trade Name Ginette PRN Reason Stop Dose Admin IV Flush 8 ml 03/27/17 09:05 Picc Line Flush IVPUSH PRN PRN Protocol Morphine Sulfate 100 mg/ 100 mls @ 2 mls/hr 03/29/17 17:00 04/05/17 17:08 Sodium Chloride IVPB 3 mls/hr TITR KWAKU Administration Protocol 2 MG/HR Dextrose/Sodium Chloride 1,000 mls @ 75 mls/hr 04/02/17 17:55 04/05/17 21:01 D5-1/2ns - IV 75 mls/hr ASDIR KWAKU Administration Morphine Sulfate 1 mg 04/06/17 08:23 Morphine Injection - IVPUSH Q4H PRN PAIN Multi-Ingredient Lotion 1 applic 11/07/16 11:55 Eucerin (Large Jar) - TP BID PRN DRY SKIN Ondansetron HCl 4 mg 04/04/17 22:00 04/05/17 21:02 Zofran Injection IVPUSH 4 mg BID KWAKU Administration Scopolamine HBr 1 patch 12/10/16 11:00 04/03/17 10:21 Transderm-Scop - TD 1 patch Q72H KWAKU Administration Objective: Vital Signs Period Temp Pulse Resp BP Sys/Santiago Pulse Ox Last 24 Hr 97.2 F-100.5 F 82-98 16-16 88-128/46-78 96-98 Physical Exam: General: No acute distress Pulm: CTA anteriorly CV: RRR, S1S2 Abd: Soft, non-distended. Normoactive bowel sounds. Peg tube to suction with bilious drainage Ext: Warm, well-perfused. 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 Plan: 1. Obstruction vs. ileus - Conservative management - G-tube to suction per GI - Morphine gtt - Zofran for vomiting 2. Anoxic brain injury s/p brainstem CVAs - Mental status unchanged 3. Respiratory failure secondary to anoxic brain injury - Cont O2 via room air, NC prn - Trach removed 09/09/16 4. HTN - Holding all meds given g-tube to suction 5. F/E/N: - Continue IV fluids 6. Prophylaxis: - SCDs bilaterally - No chemical anticoagulation 2/2 recent GI bleed - Functional quadriplegia CODE STATUS: DNR/DNI Visit type - Emergency Visit Emergency Visit: Yes ED Registration Date: 06/27/15 Care time: The patient presented to the Emergency Department on the above date and was hospitalized for further evaluation of their emergent condition. - New Patient This patient is new to me today: No - Critical Care Critical Care patient: No
[2017-04-07] MEDS: DEXTROSE 5%-0.45% SALINE 1,000 ML IV SCH ×2 (10:00→18:53)
[2017-04-07] MEDS: ONDANSETRON 4 MG/2 ML VIAL IVPUSH SCH ×2 (11:48→21:47)
[2017-04-07] MEDS: MORPHINE 100 MG in SODIUM CHLORIDE 98 ML IVPB SCH (18:51)
[2017-04-08] MEDS: DEXTROSE 5%-0.45% SALINE 1,000 ML IV SCH ×2 (03:17→17:05)
[2017-04-08] MEDS: ONDANSETRON 4 MG/2 ML VIAL IVPUSH SCH ×2 (11:12→21:34)
--- NOTE | 2017-04-08 16:02 | PN ---
Progress Note (short form) - Note Progress Note: Subjective: The patient was seen and examined at the bedside, non-verbal. Tolerating room air well. Still with G-tube to suction, 525ml output yesterday Appears comfortable Current Medications Generic Name Dose Route Start Last Admin Trade Name Ginette PRN Reason Stop Dose Admin IV Flush 8 ml 03/27/17 09:05 Picc Line Flush IVPUSH PRN PRN Protocol Morphine Sulfate 100 mg/ 100 mls @ 2 mls/hr 03/29/17 17:00 04/07/17 18:51 Sodium Chloride IVPB 4 mls/hr TITR KWAKU Administration Protocol 2 MG/HR Dextrose/Sodium Chloride 1,000 mls @ 75 mls/hr 04/02/17 17:55 04/08/17 03:17 D5-1/2ns - IV 75 mls/hr ASDIR KWAKU Administration Morphine Sulfate 1 mg 04/06/17 08:23 Morphine Injection - IVPUSH Q4H PRN PAIN Multi-Ingredient Lotion 1 applic 11/07/16 11:55 Eucerin (Large Jar) - TP BID PRN DRY SKIN Ondansetron HCl 4 mg 04/04/17 22:00 04/08/17 11:12 Zofran Injection IVPUSH 4 mg BID KWAKU Administration Scopolamine HBr 1 patch 12/10/16 11:00 04/06/17 10:38 Transderm-Scop - TD 1 patch Q72H KWAKU Administration Objective: Vital Signs Period Temp Pulse Resp BP Sys/Santiago Pulse Ox Last 24 Hr 97.2 F-97.6 F 50-96 16-16 94-122/53-54 95-96 Physical Exam: General: No acute distress Pulm: CTA anteriorly CV: RRR, S1S2 Abd: Soft, non-distended. Normoactive bowel sounds. Peg tube to suction with bilious drainage Ext: Warm, well-perfused. 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 Plan: 1. Obstruction vs. ileus - Conservative management - G-tube to suction per GI - Morphine gtt - Zofran for vomiting 2. Anoxic brain injury s/p brainstem CVAs - Mental status unchanged 3. Respiratory failure secondary to anoxic brain injury - Cont O2 via room air, NC prn - Trach removed 09/09/16 4. HTN - Holding all meds given g-tube to suction 5. F/E/N: - Continue IV fluids 6. Prophylaxis: - SCDs bilaterally - No chemical anticoagulation 2/2 recent GI bleed - Functional quadriplegia CODE STATUS: DNR/DNI Visit type - Emergency Visit Emergency Visit: Yes ED Registration Date: 06/27/15 Care time: The patient presented to the Emergency Department on the above date and was hospitalized for further evaluation of their emergent condition. - New Patient This patient is new to me today: No - Critical Care Critical Care patient: No
[2017-04-08] MEDS: MORPHINE 100 MG in SODIUM CHLORIDE 98 ML IVPB SCH (17:04)
[2017-04-09] MEDS: ONDANSETRON 4 MG/2 ML VIAL IVPUSH SCH ×2 (09:55→21:54)
[2017-04-09] MEDS: SCOPOLAMINE HYDROBROMIDE 1 PATCH PATCH.TD72 TD SCH (10:00)
--- NOTE | 2017-04-09 10:25 | PN ---
Physical Exam: SUBJECTIVE: Patient seen and examined. Patient lethargic, non responsive to sternal rub. OBJECTIVE: Decrease morphine to 3mg/hr and monitor If has pain, can increase it back to 4mg/hr Continue comfort care Vital Signs Period Temp Pulse Resp BP Sys/Santiago Pulse Ox Last 24 Hr 98.2 F-98.6 F 93-96 16-16 84-96/46-60 GENERAL: Patient is lethargic, non verbal at baseline HEAD: Normal with no signs of trauma. EYES: PERRL, extraocular movements intact, sclera anicteric, conjunctiva clear. No ptosis. LUNGS: Breath sounds equal, clear to auscultation bilaterally, no wheezes, no crackles, no accessory muscle use. HEART: Irregular heart rate 50s-70s EXTREMITIES: 2+ pulses, warm, well-perfused, no edema. NEUROLOGICAL: Non verbal, bed bound PSYCH:lethargic, non verbal SKIN: Healed stage 3 on buttocks Active Medications Generic Name Dose Route Start Last Admin Trade Name Freq PRN Reason Stop Dose Admin IV Flush 8 ml 03/27/17 09:05 Picc Line Flush IVPUSH PRN PRN Protocol Morphine Sulfate 100 mg/ 100 mls @ 2 mls/hr 03/29/17 17:00 04/08/17 17:04 Sodium Chloride IVPB 4 mls/hr TITR KWAKU Administration Protocol 2 MG/HR Dextrose/Sodium Chloride 1,000 mls @ 75 mls/hr 04/02/17 17:55 04/08/17 17:05 D5-1/2ns - IV 75 mls/hr ASDIR KWAKU Administration Multi-Ingredient Lotion 1 applic 11/07/16 11:55 Eucerin (Large Jar) - TP BID PRN DRY SKIN Ondansetron HCl 4 mg 04/04/17 22:00 04/09/17 09:55 Zofran Injection IVPUSH 4 mg BID KWAKU Administration Scopolamine HBr 1 patch 12/10/16 11:00 04/09/17 10:00 Transderm-Scop - TD 1 patch Q72H KWAKU Administration ASSESSMENT/PLAN: Patient is a 76 year old male with a past medical history of IDDM, HTN and inguinal hernia. He presented to the emergency room on 06/27/2015 with a diverticular bleed s/p right hemicolectomy. His hospitalization was further complicated with a CVA with anoxic brain injury. He is s/p trach secondary to respiratory failure. On 01/25/2017 patient developed an acute episode of GI bleeding. He required numerous blood transfusions, platelets and FFP infusions. Patient is comfort care only as per family wishes. He remains on a morphine drip. GI: obstruction/Ileus Assessment/Plan: GI to LIT suction, 900cc drained overnight Zofran 4mg BID scheduled for nausea/vomiting, Monitor intake and output On D5 1/2 NS @75cc/hr GI Bleed - resolved Assessment/Plan: monitor Neuro: Assessment/Plan: Anoxic brain injury s/p brainstem CVAs Lethargic today, morphine decreased to 3mg/hr from 4mg Appears comfortable otherwise, no pain behaviours on exam Pulmonary: Respiratory failure - anoxic brain injury Assessment/Plan: on 2 liters of nasal cannula Monitor respiratory status, appears comfortable Cardiology: Hypertension - chronic Assessment/Plan: Now with hypotension, Monitor BP All cardiac meds on hold secondary to GI tube to suction F.E.N. NPO Functional quadraplegia d5 1/2 ns @ 75cc/hr Prophylaxis: DVT: SCDs - both legs. No AC: contraindicated secondary to GI bleed GI Regimen: Zofran as needed Disposition: DNR/DNI. Comfort care only as per family wishes. Visit type - Emergency Visit Emergency Visit: Yes ED Registration Date: 06/27/15 Care time: The patient presented to the Emergency Department on the above date and was hospitalized for further evaluation of their emergent condition. - New Patient This patient is new to me today: No - Critical Care Critical Care patient: No - Discharge Referral Referred to [facility] Med P[facility]C.: No
[2017-04-09] MEDS: MORPHINE 100 MG in SODIUM CHLORIDE 98 ML IVPB SCH (17:46)
[2017-04-09] MEDS: DEXTROSE 5%-0.45% SALINE 1,000 ML IV SCH ×2 (17:57→21:53)
[2017-04-10] MEDS: ONDANSETRON 4 MG/2 ML VIAL IVPUSH SCH ×2 (09:45→22:00)
[2017-04-10] MEDS: DEXTROSE 5%-0.45% SALINE 1,000 ML IV SCH (13:04)
--- NOTE | 2017-04-10 15:22 | PN ---
Physical Exam: SUBJECTIVE: Patient seen and examined. Patient minimally responsive to tactile stimuli. Appears comfortable at rest. OBJECTIVE: Minimally responsive to sternal rub Comfortable on the morphine drip Comfort care Vital Signs Period Temp Pulse Resp BP Sys/Santiago Pulse Ox Last 24 Hr 97.2 F-98.6 F 51-95 13-15 90-102/45-60 GENERAL: Patient is lethargic, non verbal at baseline HEAD: Normal with no signs of trauma. EYES: PERRL, extraocular movements intact, sclera anicteric, conjunctiva clear. No ptosis. LUNGS: Breath sounds equal, clear to auscultation bilaterally, no wheezes, no crackles, no accessory muscle use. HEART: Irregular heart rate 50s-70s EXTREMITIES: 2+ pulses, warm, well-perfused, no edema. NEUROLOGICAL: Non verbal, bed bound PSYCH:lethargic, non verbal SKIN: Healed stage 3 on buttocks Active Medications Generic Name Dose Route Start Last Admin Trade Name Freq PRN Reason Stop Dose Admin IV Flush 8 ml 03/27/17 09:05 Picc Line Flush IVPUSH PRN PRN Protocol Morphine Sulfate 100 mg/ 100 mls @ 2 mls/hr 03/29/17 17:00 04/09/17 17:46 Sodium Chloride IVPB 3 mls/hr TITR KWAKU Administration Protocol 2 MG/HR Dextrose/Sodium Chloride 1,000 mls @ 75 mls/hr 04/02/17 17:55 04/09/17 21:53 D5-1/2ns - IV 75 mls/hr ASDIR KWAKU Administration Multi-Ingredient Lotion 1 applic 11/07/16 11:55 Eucerin (Large Jar) - TP BID PRN DRY SKIN Ondansetron HCl 4 mg 04/04/17 22:00 04/10/17 09:45 Zofran Injection IVPUSH 4 mg BID KWAKU Administration Scopolamine HBr 1 patch 12/10/16 11:00 04/09/17 10:00 Transderm-Scop - TD 1 patch Q72H KWAKU Administration ASSESSMENT/PLAN: Patient is a 76 year old male with a past medical history of IDDM, HTN and inguinal hernia. He presented to the emergency room on 06/27/2015 with a diverticular bleed s/p right hemicolectomy. His hospitalization was further complicated with a CVA with anoxic brain injury. He is s/p trach secondary to respiratory failure. On 01/25/2017 patient developed an acute episode of GI bleeding. He required numerous blood transfusions, platelets and FFP infusions. Patient is comfort care only as per family wishes. He remains on a morphine drip. GI: SBO/Ileus - acute Assessment/Plan: GI to LIT suction, 1100cc drained overnight Zofran 4mg BID scheduled for nausea/vomiting, Monitor intake and output On D5 1/2 NS @75cc/hr for hydration GI Bleed - resolved Assessment/Plan: monitor Neuro: Assessment/Plan: Anoxic brain injury s/p brainstem CVAs Lethargic today, morphine decreased to 3mg/hr from 4mg Appears comfortable otherwise, no pain behaviours on exam Pulmonary: Respiratory failure - anoxic brain injury Assessment/Plan: on 2 liters of nasal cannula Monitor respiratory status, appears comfortable Cardiology: Hypertension - chronic Assessment/Plan: Now with hypotension, Monitor BP All cardiac meds on hold secondary to GI tube to suction F.E.N. NPO Functional quadraplegia d5 1/2 ns @ 75cc/hr Prophylaxis: DVT: SCDs - both legs. No AC: contraindicated secondary to GI bleed GI Regimen: Zofran as needed Disposition: DNR/DNI. Comfort care only as per family wishes. Visit type - Emergency Visit Emergency Visit: Yes ED Registration Date: 06/27/15 Care time: The patient presented to the Emergency Department on the above date and was hospitalized for further evaluation of their emergent condition. - New Patient This patient is new to me today: No - Critical Care Critical Care patient: No - Discharge Referral Referred to [facility] Med P.C.: No
[2017-04-10] MEDS: MORPHINE 100 MG in SODIUM CHLORIDE 98 ML IVPB SCH (17:36)
[2017-04-11] MEDS: DEXTROSE 5%-0.45% SALINE 1,000 ML IV SCH ×3 (01:21→22:27)
[2017-04-11] MEDS: ONDANSETRON 4 MG/2 ML VIAL IVPUSH SCH ×2 (10:13→22:26)
--- NOTE | 2017-04-11 15:08 | PN ---
Physical Exam: SUBJECTIVE: Patient seen and examined. Remains unresponsive to verbal or tactile stimuli. OBJECTIVE: Morphine @ 3mg/hr, appears comfortable Comfort care only Vital Signs Period Temp Pulse Resp BP Sys/Santiago Pulse Ox Last 24 Hr 97.8 F-99.5 F 94-107 15-20 100-125/59-63 92-94 GENERAL: Patient is lethargic, non verbal at baseline HEAD: Normal with no signs of trauma. EYES: PERRL, extraocular movements intact, sclera anicteric, conjunctiva clear. No ptosis. LUNGS: Breath sounds equal, clear to auscultation bilaterally, no wheezes, no crackles, no accessory muscle use. HEART: Irregular heart rate 50s-70s EXTREMITIES: 2+ pulses, warm, well-perfused, no edema. NEUROLOGICAL: Non verbal, bed bound PSYCH:lethargic, non verbal SKIN: Healed stage 3 on buttocks Active Medications Generic Name Dose Route Start Last Admin Trade Name Freq PRN Reason Stop Dose Admin IV Flush 8 ml 03/27/17 09:05 Picc Line Flush IVPUSH PRN PRN Protocol Morphine Sulfate 100 mg/ 100 mls @ 2 mls/hr 03/29/17 17:00 04/10/17 17:36 Sodium Chloride IVPB 3 mls/hr TITR KWAKU Administration Protocol 2 MG/HR Dextrose/Sodium Chloride 1,000 mls @ 75 mls/hr 04/02/17 17:55 04/11/17 01:21 D5-1/2ns - IV 75 mls/hr ASDIR KWAKU Administration Multi-Ingredient Lotion 1 applic 11/07/16 11:55 Eucerin (Large Jar) - TP BID PRN DRY SKIN Ondansetron HCl 4 mg 04/04/17 22:00 04/11/17 10:13 Zofran Injection IVPUSH 4 mg BID KWAKU Administration Scopolamine HBr 1 patch 12/10/16 11:00 04/09/17 10:00 Transderm-Scop - TD 1 patch Q72H KWAKU Administration ASSESSMENT/PLAN: Patient is a 76 year old male with a past medical history of IDDM, HTN and inguinal hernia. He presented to the emergency room on 06/27/2015 with a diverticular bleed s/p right hemicolectomy. His hospitalization was further complicated with a CVA with anoxic brain injury. He is s/p trach secondary to respiratory failure. On 01/25/2017 patient developed an acute episode of GI bleeding. He required numerous blood transfusions, platelets and FFP infusions. Patient is comfort care only as per family wishes. He remains on a morphine drip @ 3mg/hr. He appears comfortable on exam. GI: SBO/Ileus - acute Assessment/Plan: GI to LIT suction, 1300cc drained overnight Zofran 4mg BID scheduled for nausea/vomiting, Monitor intake and output On D5 1/2 NS @75cc/hr for hydration tube feeds discontinued GI Bleed - resolved Assessment/Plan: monitor Neuro: Assessment/Plan: Anoxic brain injury s/p brainstem CVAs Lethargic today, morphine decreased to 3mg/hr from 4mg Appears comfortable otherwise, no pain behaviours on exam Pulmonary: Respiratory failure - anoxic brain injury Assessment/Plan: on 2 liters of nasal cannula Monitor respiratory status, appears comfortable Cardiology: Hypertension - chronic Assessment/Plan: Now with hypotension, Monitor BP All cardiac meds on hold secondary to GI tube to suction F.E.N. NPO Functional quadraplegia d5 1/2 ns @ 75cc/hr Prophylaxis: DVT: SCDs - both legs. No AC: contraindicated secondary to GI bleed GI Regimen: Zofran as needed Disposition: DNR/DNI. Comfort care only as per family wishes. Visit type - Emergency Visit Emergency Visit: Yes ED Registration Date: 06/27/15 Care time: The patient presented to the Emergency Department on the above date and was hospitalized for further evaluation of their emergent condition. - New Patient This patient is new to me today: No - Critical Care Critical Care patient: No - Discharge Referral Referred to [facility] Med P.C.: No
[2017-04-11] MEDS: MORPHINE 100 MG in SODIUM CHLORIDE 98 ML IVPB SCH (18:53)
[2017-04-12] MEDS: DEXTROSE 5%-0.45% SALINE 1,000 ML IV SCH ×2 (09:08→22:17)
[2017-04-12] MEDS: ONDANSETRON 4 MG/2 ML VIAL IVPUSH SCH ×2 (09:09→22:10)
[2017-04-12] MEDS: SCOPOLAMINE HYDROBROMIDE 1 PATCH PATCH.TD72 TD SCH (10:24)
--- NOTE | 2017-04-12 16:27 | PN ---
Physical Exam: SUBJECTIVE: Patient seen and examined. Having some intermittent discomfort and facial grimacing. OBJECTIVE: Increase Morphine drip to 4mg per hour for continued comfort Comfort care only, no labs or further GT feeds Worsening stage 3 pressure ulceration, now progressing to an unstageable PU with slough, discoloration and bleeding Vital Signs Period Temp Pulse Resp BP Sys/Santiago Pulse Ox Last 24 Hr 97.8 F-98.6 F 96-99 16-20 104-116/52-63 96-96 GENERAL: Patient is lethargic, non verbal at baseline HEAD: Normal with no signs of trauma. EYES: PERRL, extraocular movements intact, sclera anicteric, conjunctiva clear. No ptosis. LUNGS: Breath sounds equal, clear to auscultation bilaterally, no wheezes, no crackles, no accessory muscle use. HEART: Irregular heart rate 50s-70s EXTREMITIES: 2+ pulses, warm, well-perfused, no edema. NEUROLOGICAL: Non verbal, bed bound PSYCH:lethargic, non verbal SKIN: Worsening stage 3 pressure ulceration, now progressing to an unstageable PU with slough, discoloration and bleeding Active Medications Generic Name Dose Route Start Last Admin Trade Name Freq PRN Reason Stop Dose Admin IV Flush 8 ml 03/27/17 09:05 Picc Line Flush IVPUSH PRN PRN Protocol Morphine Sulfate 100 mg/ 100 mls @ 2 mls/hr 03/29/17 17:00 04/11/17 18:53 Sodium Chloride IVPB 3 mls/hr TITR KWAKU Administration Protocol 2 MG/HR Dextrose/Sodium Chloride 1,000 mls @ 75 mls/hr 04/02/17 17:55 04/12/17 09:08 D5-1/2ns - IV 75 mls/hr ASDIR KWAKU Administration Multi-Ingredient Lotion 1 applic 11/07/16 11:55 Eucerin (Large Jar) - TP BID PRN DRY SKIN Ondansetron HCl 4 mg 04/04/17 22:00 04/12/17 09:09 Zofran Injection IVPUSH 4 mg BID KWAKU Administration Scopolamine HBr 1 patch 12/10/16 11:00 04/12/17 10:24 Transderm-Scop - TD 1 patch Q72H KWAKU Administration ASSESSMENT/PLAN: Patient is a 76 year old male with a past medical history of IDDM, HTN and inguinal hernia. He presented to the emergency room on 06/27/2015 with a diverticular bleed s/p right hemicolectomy. His hospitalization was further complicated with a CVA with anoxic brain injury. He is s/p trach secondary to respiratory failure. On 01/25/2017 patient developed an acute episode of GI bleeding. He required numerous blood transfusions, platelets and FFP infusions. Patient is comfort care only as per family wishes. He remains on a morphine drip @ 4mg/hr. He appears comfortable on exam. GI: SBO/Ileus - acute Assessment/Plan: GI to LIT suction, 1300cc drained overnight Zofran 4mg BID scheduled for nausea/vomiting, Monitor intake and output On D5 1/2 NS @75cc/hr for hydration tube feeds discontinued GI Bleed - resolved Assessment/Plan: monitor Neuro: Assessment/Plan: Anoxic brain injury s/p brainstem CVAs Pain behaviours noted today, increased morphine to 4mg/hr Pulmonary: Respiratory failure - anoxic brain injury Assessment/Plan: on 2 liters of nasal cannula Monitor respiratory status, appears comfortable Cardiology: Hypertension - chronic Assessment/Plan: Now with hypotension, Monitor BP All cardiac meds on hold secondary to GI tube to suction F.E.N. NPO Functional quadraplegia d5 1/2 ns @ 75cc/hr Prophylaxis: DVT: SCDs - both legs. No AC: contraindicated secondary to GI bleed GI Regimen: Zofran as needed Disposition: DNR/DNI. Comfort care only as per family wishes. Visit type - Emergency Visit Emergency Visit: Yes ED Registration Date: 06/27/15 Care time: The patient presented to the Emergency Department on the above date and was hospitalized for further evaluation of their emergent condition. - New Patient This patient is new to me today: No - Critical Care Critical Care patient: No - Discharge Referral Referred to [facility] Med P.C.: No
[2017-04-12] MEDS: MORPHINE 100 MG in SODIUM CHLORIDE 98 ML IVPB SCH ×2 (19:47→20:41)
[2017-04-13] MEDS: ONDANSETRON 4 MG/2 ML VIAL IVPUSH SCH ×2 (11:38→22:47)
[2017-04-13] MEDS: DEXTROSE 5%-0.45% SALINE 1,000 ML IV SCH ×2 (11:43→18:48)
--- NOTE | 2017-04-13 15:09 | PN ---
Physical Exam: SUBJECTIVE: Patient seen and examined. Appears comfortable at rest, non verbal at baseline. OBJECTIVE: Morphine drip @ 4mg per hour for continued comfort Comfort care only, no labs or further GT feeds Worsening stage 3 pressure ulceration, now progressing to an unstageable PU with slough, discoloration and bleeding Vital Signs Period Temp Pulse Resp BP Sys/Santiago Pulse Ox Last 24 Hr 97.6 F-99.0 F 92-110 17-20 90-138/54-70 96-96 GENERAL: Patient is lethargic, non verbal at baseline HEAD: Normal with no signs of trauma. EYES: PERRL, extraocular movements intact, sclera anicteric, conjunctiva clear. No ptosis. LUNGS: Breath sounds equal, clear to auscultation bilaterally, no wheezes, no crackles, no accessory muscle use. HEART: Irregular heart rate 50s-70s EXTREMITIES: 2+ pulses, warm, well-perfused, no edema. NEUROLOGICAL: Non verbal, bed bound PSYCH:lethargic, non verbal SKIN: Worsening stage 3 pressure ulceration, now progressing to an unstageable PU with slough, discoloration and bleeding/purulent drainage. Active Medications Generic Name Dose Route Start Last Admin Trade Name Freq PRN Reason Stop Dose Admin IV Flush 8 ml 03/27/17 09:05 Picc Line Flush IVPUSH PRN PRN Protocol Morphine Sulfate 100 mg/ 100 mls @ 2 mls/hr 03/29/17 17:00 04/12/17 20:41 Sodium Chloride IVPB 4 mls/hr TITR KWAKU Administration Protocol 2 MG/HR Dextrose/Sodium Chloride 1,000 mls @ 75 mls/hr 04/02/17 17:55 04/13/17 11:43 D5-1/2ns - IV 75 mls/hr ASDIR KWAKU Administration Multi-Ingredient Lotion 1 applic 11/07/16 11:55 Eucerin (Large Jar) - TP BID PRN DRY SKIN Ondansetron HCl 4 mg 04/04/17 22:00 04/13/17 11:38 Zofran Injection IVPUSH 4 mg BID KWAKU Administration Scopolamine HBr 1 patch 12/10/16 11:00 04/12/17 10:24 Transderm-Scop - TD 1 patch Q72H KWAKU Administration ASSESSMENT/PLAN: Patient is a 76 year old male with a past medical history of IDDM, HTN and inguinal hernia. He presented to the emergency room on 06/27/2015 with a diverticular bleed s/p right hemicolectomy. His hospitalization was further complicated with a CVA with anoxic brain injury. He is s/p trach secondary to respiratory failure. On 01/25/2017 patient developed an acute episode of GI bleeding. He required numerous blood transfusions, platelets and FFP infusions. Patient is comfort care only as per family wishes. He remains on a morphine drip @ 4mg/hr. He appears comfortable on exam. GI: SBO/Ileus - acute Assessment/Plan: GI to LIT suction, 500cc drained overnight Zofran 4mg BID scheduled for nausea/vomiting, Monitor intake and output On D5 1/2 NS @75cc/hr for hydration tube feeds discontinued GI Bleed - resolved Assessment/Plan: monitor Neuro: Assessment/Plan: Anoxic brain injury s/p brainstem CVAs Pulmonary: Respiratory failure - anoxic brain injury Assessment/Plan: on 2 liters of nasal cannula Monitor respiratory status, appears comfortable Cardiology: Hypertension - chronic Assessment/Plan: Now with hypotension, Monitor BP All cardiac meds on hold secondary to GI tube to suction F.E.N. NPO Functional quadraplegia d5 1/2 ns @ 75cc/hr Prophylaxis: DVT: SCDs - both legs. No AC: contraindicated secondary to GI bleed GI Regimen: Zofran as needed Disposition: DNR/DNI. Comfort care only as per family wishes. Visit type - Emergency Visit Emergency Visit: Yes ED Registration Date: 06/27/15 Care time: The patient presented to the Emergency Department on the above date and was hospitalized for further evaluation of their emergent condition. - New Patient This patient is new to me today: No - Critical Care Critical Care patient: No - Discharge Referral Referred to [facility] Med P.C.: No
[2017-04-13] MEDS: MORPHINE 100 MG in SODIUM CHLORIDE 98 ML IVPB SCH (18:46)
[2017-04-14] MEDS: DEXTROSE 5%-0.45% SALINE 1,000 ML IV SCH (02:06)
[2017-04-14] MEDS: ONDANSETRON 4 MG/2 ML VIAL IVPUSH SCH ×2 (09:26→22:36)
--- NOTE | 2017-04-14 11:23 | PN ---
Physical Exam: SUBJECTIVE: Patient seen and examined. No acute changes overnight. Events: - IV site lost - 550ml gastric drainage overnight OBJECTIVE: Vital Signs Period Temp Pulse Resp BP Sys/Santiago Pulse Ox Last 24 Hr 97 F-99.0 F 90-108 16-20 110-126/58-87 96-96 PE Neuro: Opens eyes to verbal stimuli and touch HEENT: Tracheal stoma Pulm: Clear anteriorly CV: s1 s2 rrr no mrg Abd: Soft, Peg tube c/d/i Ext: cool LE, no edema, foot drop Active Medications Generic Name Dose Route Start Last Admin Trade Name Freq PRN Reason Stop Dose Admin IV Flush 8 ml 03/27/17 09:05 Picc Line Flush IVPUSH PRN PRN Protocol Morphine Sulfate 100 mg/ 100 mls @ 2 mls/hr 03/29/17 17:00 04/13/17 18:46 Sodium Chloride IVPB 4 mls/hr TITR KWAKU Administration Protocol 2 MG/HR Multi-Ingredient Lotion 1 applic 11/07/16 11:55 Eucerin (Large Jar) - TP BID PRN DRY SKIN Ondansetron HCl 4 mg 04/04/17 22:00 04/14/17 09:26 Zofran Injection IVPUSH 4 mg BID KWAKU Administration Scopolamine HBr 1 patch 12/10/16 11:00 04/12/17 10:24 Transderm-Scop - TD 1 patch Q72H KWAKU Administration Assessment: 75 year old male with PMHx of HTN, IDDM, inguinal hernia admitted with diverticular bleed s/p Righ hemicolectomy with 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 Plan: 1. Obstruction vs. ileus - Conservative management - G-tube to suction per GI - Morphine gtt - Zofran for vomiting - Change fluids NS @60cc/hr 2. Anoxic brain injury s/p brainstem CVAs - Mental status unchanged 3. Respiratory failure secondary to anoxic brain injury - Cont O2 via room air, NC prn - Trach removed 09/09/16 4. Prophylaxis: - SCDs bilaterally - No chemical anticoagulation 2/2 recent GI bleed - Functional quadriplegia CODE STATUS: DNR/DNI Visit type - Emergency Visit Emergency Visit: Yes ED Registration Date: 06/27/15 Care time: The patient presented to the Emergency Department on the above date and was hospitalized for further evaluation of their emergent condition. - New Patient This patient is new to me today: No - Critical Care Critical Care patient: No
--- NOTE | 2017-04-14 14:13 | PROC ---
Central Line Insertion Indication: Poor Venous Access Risks and Benefits Explained: No Consent on Chart: Yes (Daughter consented via phone) Central Line: Triple Lumen Catheter Anesthesia: 1% Lidocaine Sterile Technique: Yes Ultrasound Guided Assistance: Yes Position: Right Internal Jugular Post Insertion: Yes: Bilateral Breath Sounds, Bilateral Chest Expansion, Chest X-Ray Ordered Sterile Dressing Applied: Yes
[2017-04-14] MEDS: SODIUM CHLORIDE 1,000 ML IV SCH (15:07)
[2017-04-14] MEDS: MORPHINE 100 MG in SODIUM CHLORIDE 98 ML IVPB SCH (17:19)
[2017-04-15] MEDS: SODIUM CHLORIDE 1,000 ML IV SCH ×2 (09:07→14:49)
[2017-04-15] MEDS: ONDANSETRON 4 MG/2 ML VIAL IVPUSH SCH ×2 (12:06→23:10)
[2017-04-15] MEDS: SCOPOLAMINE HYDROBROMIDE 1 PATCH PATCH.TD72 TD SCH (12:06)
--- NOTE | 2017-04-15 12:50 | PN ---
Physical Exam: SUBJECTIVE: Patient seen and examined. No overnight events. OBJECTIVE: Vital Signs Period Temp Pulse Resp BP Sys/Santiago Pulse Ox Last 24 Hr 97.0 F-99.5 F 90-105 16-20 98-122/59-67 96 EVENTS: RIJ TLC 04/14 for poor venous access Physical Exam: General: No acute distress Pulm: CTA anteriorly CV: RRR, S1S2 Abd: Soft, non-distended. Normoactive bowel sounds. Peg tube to suction with bilious drainage Ext: Warm, well-perfused. 2+ DP/PT bilaterally Active Medications Generic Name Dose Route Start Last Admin Trade Name Freq PRN Reason Stop Dose Admin IV Flush 8 ml 03/27/17 09:05 Picc Line Flush IVPUSH PRN PRN Protocol Morphine Sulfate 100 mg/ 100 mls @ 2 mls/hr 03/29/17 17:00 04/14/17 17:19 Sodium Chloride IVPB 5 mls/hr TITR KWAKU Administration Protocol 2 MG/HR Sodium Chloride 1,000 mls @ 60 mls/hr 04/14/17 14:15 04/15/17 09:07 Normal Saline - IV 60 mls/hr ASDIR KWAKU Administration Multi-Ingredient Lotion 1 applic 11/07/16 11:55 Eucerin (Large Jar) - TP BID PRN DRY SKIN Ondansetron HCl 4 mg 04/04/17 22:00 04/15/17 12:06 Zofran Injection IVPUSH 4 mg BID KWAKU Administration Scopolamine HBr 1 patch 12/10/16 11:00 04/15/17 12:06 Transderm-Scop - TD 1 patch Q72H KWAKU Administration ASSESSMENT/PLAN: 75 year old male with PMHx of HTN, IDDM, inguinal hernia admitted with diverticular bleed s/p Righ hemicolectomy with 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 Plan: 1. Obstruction vs. ileus - Conservative management - G-tube to suction per GI - Morphine gtt - Zofran for vomiting - Change fluids NS @60cc/hr 2. Anoxic brain injury s/p brainstem CVAs - Mental status unchanged 3. Respiratory failure secondary to anoxic brain injury - Cont O2 via room air, NC prn - Trach removed 09/09/16 4. Prophylaxis: - SCDs bilaterally - No chemical anticoagulation 2/2 GI bleed - Functional quadriplegiarecent CODE STATUS: DNR/DNI Visit type - Emergency Visit Emergency Visit: Yes ED Registration Date: 06/27/15 Care time: The patient presented to the Emergency Department on the above date and was hospitalized for further evaluation of their emergent condition. - New Patient This patient is new to me today: No - Critical Care Critical Care patient: No - Discharge Referral Referred to [facility] Med P.C.: No
[2017-04-15] MEDS: MORPHINE 100 MG in SODIUM CHLORIDE 98 ML IVPB SCH (14:48)
[2017-04-16] MEDS: ONDANSETRON 4 MG/2 ML VIAL IVPUSH SCH ×2 (10:06→22:52)
[2017-04-16] MEDS: MORPHINE 100 MG in SODIUM CHLORIDE 98 ML IVPB SCH (10:08)
[2017-04-16] MEDS: SODIUM CHLORIDE 1,000 ML IV SCH (19:07)
[2017-04-17] MEDS: MORPHINE 100 MG in SODIUM CHLORIDE 98 ML IVPB SCH ×2 (05:15→18:23)
--- NOTE | 2017-04-17 08:51 | PN ---
Physical Exam: SUBJECTIVE: Patient seen and examined, no events, hemodynamically stable. OBJECTIVE: Vital Signs Period Temp Pulse Resp BP Sys/Santiago Pulse Ox Last 24 Hr 98.5 F-98.8 F 94-102 20-22 101-130/53-75 93-96 PE Neuro: Opens eyes to verbal stimuli and touch HEENT: Tracheal stoma, R TLC cdi Pulm: Clear anteriorly CV: s1 s2 rrr no mrg Abd: Soft, Peg tube c/d/i Ext: cool LE, no edema, foot drop Active Medications Generic Name Dose Route Start Last Admin Trade Name Freq PRN Reason Stop Dose Admin IV Flush 8 ml 03/27/17 09:05 Picc Line Flush IVPUSH PRN PRN Protocol Sodium Chloride 1,000 mls @ 60 mls/hr 04/14/17 14:15 04/16/17 19:07 Normal Saline - IV 60 mls/hr ASDIR KWAKU Administration Morphine Sulfate 100 mg/ 100 mls @ 2 mls/hr 04/17/17 04:45 04/17/17 05:15 Sodium Chloride IVPB 2 mls/hr TITR KWAKU Administration Protocol 2 MG/HR Multi-Ingredient Lotion 1 applic 11/07/16 11:55 Eucerin (Large Jar) - TP BID PRN DRY SKIN Ondansetron HCl 4 mg 04/04/17 22:00 04/16/17 22:52 Zofran Injection IVPUSH 4 mg BID KWAKU Administration Scopolamine HBr 1 patch 12/10/16 11:00 04/15/17 12:06 Transderm-Scop - TD 1 patch Q72H KWAKU Administration Assessment: 75 year old male with PMHx of HTN, IDDM, inguinal hernia admitted with diverticular bleed s/p Righ hemicolectomy with 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 Plan: 1. Obstruction vs. ileus - Conservative management - G-tube to suction - Morphine gtt - Zofran for vomiting - NS @60cc/hr 2. Anoxic brain injury s/p brainstem CVAs - Mental status unchanged 3. Respiratory failure secondary to anoxic brain injury - Cont O2 via room air, NC prn - Trach removed 09/09/16 4. Prophylaxis: - SCDs bilaterally - No chemical anticoagulation 2/2 GI bleed - Functional quadriplegia CODE STATUS: DNR/DNI Visit type - Emergency Visit Emergency Visit: Yes ED Registration Date: 06/27/15 Care time: The patient presented to the Emergency Department on the above date and was hospitalized for further evaluation of their emergent condition. - New Patient This patient is new to me today: No - Critical Care Critical Care patient: No
[2017-04-17] MEDS: ONDANSETRON 4 MG/2 ML VIAL IVPUSH SCH ×2 (09:36→21:07)
[2017-04-17] MEDS: SODIUM CHLORIDE 1,000 ML IV SCH ×2 (18:21→21:07)
[2017-04-18] MEDS: SODIUM CHLORIDE 1,000 ML IV SCH ×2 (11:15→22:21)
[2017-04-18] MEDS: ONDANSETRON 4 MG/2 ML VIAL IVPUSH SCH ×2 (11:16→22:22)
[2017-04-18] MEDS: SCOPOLAMINE HYDROBROMIDE 1 PATCH PATCH.TD72 TD SCH (11:16)
[2017-04-18] MEDS: MORPHINE 100 MG in SODIUM CHLORIDE 98 ML IVPB SCH (13:02)
[2017-04-19] MEDS: MORPHINE 100 MG in SODIUM CHLORIDE 98 ML IVPB SCH ×2 (06:41→19:22)
[2017-04-19] MEDS: SODIUM CHLORIDE 1,000 ML IV SCH ×2 (10:18→22:23)
[2017-04-19] MEDS: ONDANSETRON 4 MG/2 ML VIAL IVPUSH SCH ×2 (10:18→22:23)
--- NOTE | 2017-04-19 13:11 | PN ---
Physical Exam: SUBJECTIVE: Patient seen and examined at bedside. OBJECTIVE: Vital Signs Period Temp Pulse Resp BP Sys/Santiago Pulse Ox Last 24 Hr 98.2 F-99.5 F 91-102 16-20 116-134/62-70 95 GENERAL/NEURO: Eyes closed. Non-verbal. Appears comfortable. LUNGS: Breathing is regular, not labored. No accessory muscle use. HEART: Regular rate and rhythm, S1, S2 without murmur, rub or gallop. ABDOMEN: soft, not tender, not distended; no hiccups EXTREMITIES: 2+ pulses, warm, well-perfused, no edema. Active Medications Generic Name Dose Route Start Last Admin Trade Name Freq PRN Reason Stop Dose Admin IV Flush 8 ml 03/27/17 09:05 Picc Line Flush IVPUSH PRN PRN Protocol Morphine Sulfate 100 mg/ 100 mls @ 2 mls/hr 04/17/17 04:45 04/19/17 06:41 Sodium Chloride IVPB 6 mls/hr TITR KWAKU Administration Protocol 2 MG/HR Sodium Chloride 1,000 mls @ 42 mls/hr 04/17/17 20:15 04/19/17 10:18 Normal Saline - IV 42 mls/hr ASDIR KWAKU Administration Multi-Ingredient Lotion 1 applic 11/07/16 11:55 Eucerin (Large Jar) - TP BID PRN DRY SKIN Ondansetron HCl 4 mg 04/04/17 22:00 04/19/17 10:18 Zofran Injection IVPUSH 4 mg BID KWAKU Administration Scopolamine HBr 1 patch 12/10/16 11:00 04/18/17 11:16 Transderm-Scop - TD 1 patch Q72H KWAKU Administration ASSESSMENT/PLAN: On morphine drip. Dispo: DNR/DNI. Comfort measures. Visit type - Emergency Visit Emergency Visit: Yes ED Registration Date: 06/27/15 Care time: The patient presented to the Emergency Department on the above date and was hospitalized for further evaluation of their emergent condition. - New Patient This patient is new to me today: No - Critical Care Critical Care patient: No
[2017-04-20] MEDS: MORPHINE 100 MG in SODIUM CHLORIDE 98 ML IVPB SCH (05:41)
[2017-04-20] MEDS: SODIUM CHLORIDE 1,000 ML IV SCH (05:42)
--- NOTE | 2017-04-20 07:22 | HOSP ---
Physical Examination Vital Signs: Vital Signs Temperature 100.5 F H 04/20/17 06:01 Pulse Rate 121 H 04/20/17 06:01 Respiratory Rate 14 04/20/17 06:01 Blood Pressure 141/71 04/20/17 06:01 O2 Sat by Pulse Oximetry (%) 95 04/19/17 21:00 Labs: CBC, BMP 02/02/17 07:45 02/02/17 07:45 Hospitalist Encounter Assessment: Called for axillary temp 100.5F. Pt is comfort measures only. NS 500cc bolus and tylenol 650mg ND ordered.
[2017-04-20] MEDS: ONDANSETRON 4 MG/2 ML VIAL IVPUSH SCH (11:07)
[2017-04-20 11:11] VITALS: BP 138/60; PULSE 102; TEMP 98.6
--- NOTE | 2017-04-20 15:54 | DS ---
Physical Exam: HOSPITAL COURSE: Date of Admission:06/27/15 Date of Discharge: 04/20/17 Mr. Mayfield was, at the time of his , a 76 year-old man. He had a significant past medical history of hypertension, non-insulin dependent diabetes, intermittent rectal bleeding x 3 years, and an inguinal hernia. He presented to the emergency department on the evening of 06/26/17 with bleeding from his rectum. He was admitted on 06/27/17 to the ICU. He undersent colonoscopy and surgery. He was found to have a diverticular bleed. He underwent a right hemicolectomy. His hospital course was complicated by a brainstem CVA and anoxic brain injury. He was trached and ultimately weaned off the trach. He was fed via PEG tube. On February 02, 2017, daughter Carole Mayfield executed a DNR/DNI and made the patient comfort care only. Patient on 06/27/17. Minutes to complete discharge: 35 Discharge Summary Reason For Visit: LOWER GASTROINTESTINAL HEMORRHAGE Current Active Problems Acute blood loss anemia (Acute) Acute brainstem infarction (Acute) Anoxic brain damage (Acute) C. difficile colitis (Acute) CKD (chronic kidney disease) (Acute) CVA (cerebral vascular accident) (Acute) Diabetes (Acute) Dysphagia (Acute) Fever (Acute) H/O right hemicolectomy (Acute) Hypertension (Acute) Iliac artery bleed (Acute) Lower GI bleed (Acute) Pneumonia (Acute) Respirator dependent (Acute) Respiratory failure (Acute) Sacral decubitus ulcer, stage II (Acute) Tracheostomy dependent (Acute) Condition: Guarded - Instructions Disposition: - Home Medications Comprehensive Discharge Medication List: Ambulatory Orders Amino Acids/Protein Hydrolys [Prostat Sugar-Free Packet -] 30 ml GT DAILY packet 08/09/15 Amlodipine Besylate [Norvasc -] 10 mg GT DAILY tablet 08/09/15 Chlorhexidine Gluconate [Peridex -] 15 ml MM BID cup 08/09/15 Insulin (Levemir) [Levemir Flexpen -] 25 units SQ HS pen 08/09/15 Insulin (Novolog) [Novolog Flexpen -] 3 units SQ Q6HPO pen 08/09/15 Insulin Sliding Scale [Novolog Vial Sliding Scale -] 0 units SQ Q6HPO pen 08/09 Lisinopril [Prinivil] 20 mg GT DAILY tablet 08/09/15 Metoprolol Tartrate Injection [Lopressor Injection -] 5 mg IVPB Q6H PRN #0 vial 08/09/15 Metoprolol Tartrate [Lopressor -] 100 mg GT BID tablet 08/09/15 Ondansetron Injection [Zofran Injection] 4 mg IVPB Q6H PRN #0 vial 08/09/15 Pantoprazole Suspension [Protonix Packets For Oral Suspension -] 40 mg GT DAILY packet 08/09/15 Vancomycin Oral Solution 125 mg GT Q6HPO ml 08/09/15 This patient is new to me today: No Emergency Visit: Yes ED Registration Date: 06/27/15 Care time: The patient presented to the Emergency Department on the above date and was hospitalized for further evaluation of their emergent condition. Critical Care patient: No - Discharge Referral Referred to [facility] Med P.C.: No
[~2017-04-20 19:02] MED LIST: ACETAMINOPHEN 1000 MG/100 ML VIAL (NON FORMULARY) IVPB ONE; ACETAMINOPHEN 325 MG TABLET (FP) PO PRN; ACETAMINOPHEN 650 MG SUPP.RECT PR ONE; ACETAMINOPHEN 650 MG/20.3 ML ORAL SOLUTION (CUPS) GT PRN; ACETAMINOPHEN 650 MG/20.3 ML ORAL SOLUTION (CUPS) NGT PRN; ACETAMINOPHEN 650 MG/20.3 ML ORAL SOLUTION (CUPS) ONE; ALBUTEROL SO4 0.083% IH SOL 2.5 MG/3 ML VIAL.NEB. NEB PRN; AMPICILLIN NA/SULBACTAM NA 1.5 GM in SODIUM CHLORIDE 100 ML IVPB SCH; ATROPINE SULFATE 1 MG/10 ML DISP.SYRIN ONE; BENZOIN/ALOE VERA/STORAX/TOLU 58 ML BOTTLE ONE; CEFEPIME HCL 2 GM VIAL (RESTRICTED TO ID) IVPB SCH; CEFTRIAXONE 1 GM in DEXTROSE 5%-WATER - 100 ML IVPB SCH; CEFTRIAXONE 1 GM in DEXTROSE 5%-WATER - 50 ML IVPB ONE; CHLORHEXIDINE GLUCONATE 0.12% 15ML CUP MM SCH; CHLORHEXIDINE GLUCONATE 4% CLEANSER FOR DECOLONIZATION TP SCH; CLINDAMYCIN IVPB 300 MG in DEXTROSE 5%-WATER - 48 ML IVPB SCH; COLLAGENASE CLOSTRIDIUM HIST. 30 GRAMS TUBE TP SCH; D5-1/2NS+20 MEQ KCL - 1,000 ML IV SCH; D5-1/2NS+40 MEQ KCL - 1,000 ML IV SCH; DEXTROSE 5%-0.45% SALINE 1,000 ML IV SCH; DEXTROSE 5%-NORMAL SALINE 1,000 ML IV SCH; DEXTROSE 5%-WATER - 1,000 ML IV SCH; DEXTROSE 5%-WATER - 500 ML IV ONE; ENALAPRILAT DIHYDRATE 2.5 MG/2 ML VIAL IVPB ONE; ESMOLOL HCL 10 ML ONE; ETOMIDATE 40 MG/20 ML VIAL IVPUSH ONE; FLUCONAZOLE 100 MG TABLET (UD) PO ONE; FLUCONAZOLE 200 MG/D5W 100 ML IVPB ONE; FUROSEMIDE 40 MG/4 ML INJECTABLE VIAL IVPUSH ONE; GLUCAGON 1 MG KIT IVPUSH ONE; GLUCAGON 1 MG KIT ONE; HEPARIN NA (PORCINE) 5,000 UNITS/ML 1ML VIAL SQ SCH; HYDROmorphone HCL CARPU-JECT 2 MG/1 ML DISP.SYRIN ONE; IBUPROFEN 100 MG/5 ML UNIT DOSE CUPS GT ONE; IBUPROFEN 100 MG/5 ML UNIT DOSE CUPS PO PRN; IBUPROFEN 400 MG TABLET (FP) PO ONE; IBUPROFEN 800 MG/8 ML IJ IVPB ONE; INFLUENZA VACCINE 45 MCG/0.5 ML (MDV 16-17) IM ONE; INFLUENZA VACCINE IM ONE; INSULIN (NOVOLOG MIX 70/30) 100 UNITS/ML MDV SQ ONE; INSULIN (NOVOLOG) ASPART 100 UNITS/ML 10ML VIAL ONE; INSULIN (NOVOLOG) ASPART 100 UNITS/ML 10ML VIAL SQ SCH; INSULIN ASPART SQ SCH; INSULIN DETEMIR 100 UNIT/ML SQ ONE; INSULIN DETEMIR 100 UNITS/ML MDV SQ ONE; INSULIN DETEMIR 100 UNITS/ML MDV SQ SCH; INSULIN DETEMIR SQ SCH; INSULIN SLIDING SCALE (NOVOLOG) 1 VIAL SQ ONE; IPRATROPIUM BR 0.02% 0.5 MG/2.5 ML VIAL.NEB. NEB PRN; KETAMINE HCL 500 MG/10 ML VIAL ONE; LABETALOL HCL 5 MG/1 ML (100MG/20 ML VIAL) IVPB ONE; LABETALOL HCL 5 MG/1 ML (100MG/20 ML VIAL) IVPUSH PRN; LABETALOL HCL 5 MG/1 ML (100MG/20 ML VIAL) ONE; LABETALOL HCL 5 MG/1 ML (200MG/40ML VIAL) IVPB ONE; LACTATED RINGERS SOLUTION 1,000 ML IV SCH; LEVOFLOXACIN 250 MG IVPB 50 ML IVPB SCH; LEVOFLOXACIN 500 MG IVPB 100 ML IVPB ONE; LIDOCAINE HCL 1%, 10 MG/ML (20ML VIAL) IJ ONE; LIDOCAINE HCL 1%, 10 MG/ML (20ML VIAL) ONE; LIDOCAINE HCL/PF 1% SDV 5ML VIAL ONE; LISINOPRIL 10 MG TABLET (FP) ONE; LISINOPRIL 20 MG TABLET (FP) GT ONE; LISINOPRIL 20 MG TABLET (FP) GT SCH; LISINOPRIL 20 MG TABLET (FP) ONE; LOPERAMIDE HCL 1 MG/5 ML UNIT DOSE CUP PEG ONE; MAGNESIUM CITRATE 300 ML BOTTLE PO ONE; MAGNESIUM SULF 50% (8.12 MEQ/2 ML-1 GM VIAL) IVPB ONE; MAGNESIUM SULF 50% (8.12 MEQ/2 ML-1 GM VIAL) ONE; MECLIZINE HCL 25 MG TABLET (FP) ONE; METOCLOPRAMIDE HCL INJECTION 10 MG/2 ML VIAL IVPB ONE; METOCLOPRAMIDE ONE; METOPROLOL TARTRATE 25 MG TABLET (FP) ONE; METOPROLOL TARTRATE 25 MG TABLET (FP) PO ONE; METOPROLOL TARTRATE 25 MG TABLET (FP) PO SCH; METOPROLOL TARTRATE 5 MG/5 ML VIAL IVPB PRN; METOPROLOL TARTRATE 5 MG/5 ML VIAL IVPB SCH; METOPROLOL TARTRATE 5 MG/5 ML VIAL IVPUSH ONE; METOPROLOL TARTRATE 5 MG/5 ML VIAL IVPUSH PRN; METOPROLOL TARTRATE 5 MG/5 ML VIAL IVPUSH SCH; METOPROLOL TARTRATE 5 MG/5 ML VIAL ONE; METOPROLOL TARTRATE 50 MG TABLET (FP) GT SCH; METOPROLOL TARTRATE 50 MG TABLET (FP) ONE; METRONIDAZOLE 500 MG PREMIXED 100 ML IVPB SCH; MIDAZOLAM HCL 2 MG/2 ML SINGLE DOSE VIAL IVPUSH ONE; MIDAZOLAM HCL 2 MG/2 ML SINGLE DOSE VIAL ONE; MULTIVITAMINS THERAPEUTIC GT SCH; MUPIROCIN 2% TOPICAL OINTMENT FOR DECOLONIZATION NS SCH; ONDANSETRON *ODT* 4 MG TABLET SL SCH; ONDANSETRON 4 MG/2 ML VIAL IVPB PRN; ONDANSETRON 4 MG/2 ML VIAL IVPUSH ONE; ONDANSETRON 4 MG/2 ML VIAL ONE; PANTOPRAZOLE 40 MG TABLET (FP) ONE; PANTOPRAZOLE SOD 40 MG SUSPENSION PACKET GT ONE; PANTOPRAZOLE SOD 40 MG SUSPENSION PACKET GT SCH; PANTOPRAZOLE SOD 40 MG SUSPENSION PACKET NGT SCH; PANTOPRAZOLE SODIUM 40 MG VIAL ONE; PANTOPRAZOLE SODIUM 40 MG in SODIUM CHLORIDE 100 ML IVPB ONE; PANTOPRAZOLE SODIUM 80 MG in SODIUM CHLORIDE 100 ML IVPB SCH; PHENYLEPHRINE HCL 10 MG/1 ML SINGLE DOSE VIAL ONE; PHYTONADIONE 10 MG/1 ML AMP IM ONE; PHYTONADIONE 10 MG/1 ML AMP ONE; PICC LINE 8 ML FLUSH PROTOCOL IVPUSH PRN; PIPERACILLIN/TAZOB 3.375 GM 3.375 GM in DEXTROSE 5%-WATER - 50 ML IVPB SCH; PIPERACILLIN/TAZOB 3.375 GM 50 ML IVPB SCH; PIPERACILLIN/TAZOB 3.375 GM/50 ML PRE-DOCKED IVPB ONE; POTASSIUM CHLORIDE 40 MEQ/30 ML UNIT DOSE CUP GT ONE; POTASSIUM CHLORIDE 40 MEQ/30 ML UNIT DOSE CUP GT SCH; POTASSIUM CHLORIDE 40 MEQ/30 ML UNIT DOSE CUP ONE; POTASSIUM CHLORIDE 40 MEQ/30 ML UNIT DOSE CUP PO ONE; POTASSIUM CHLORIDE 40 MEQ/30 ML UNIT DOSE CUP PO SCH; POTASSIUM CHLORIDE ORAL LIQUID 20 MEQ/15 ML GT ONE; POTASSIUM CHLORIDE ORAL LIQUID 20 MEQ/15 ML PO ONE; POTASSIUM CHLORIDE ORAL LIQUID 20 MEQ/15 ML PO SCH; POTASSIUM PHOSPHATE 15 MM in DEXTROSE 5%-WATER - 250 ML IVPB ONE; POTASSIUM PHOSPHATE 15 MM in SODIUM CHLORIDE 250 ML IVPB ONE; PROPOFOL 100 ML ONE; PROPOFOL 20 ML ONE; PROPOFOL 40 ML ONE; PT OWN MED DRAWER 7, Y5N ONE; RANITIDINE HCL 50 MG/2 ML VIAL ONE; REPAGLINIDE 0.5 MG TABLET (FP) PO SCH; ROCURONIUM BROMIDE 50 MG/5 ML VIAL IVPUSH ONE; ROCURONIUM BROMIDE 50 MG/5 ML VIAL ONE; SEVOFLURANE 250 ML BTL ONE; SILVER SULFADIAZINE 1% TOP CREAM 50 GM JAR TP SCH; SIMETHICONE 40 MG/0.6 ML BOTTLE PEG PRN; SODIUM CHLORIDE 0.45% 1,000 ML IV SCH; SODIUM CHLORIDE 0.9% 1000 ML INFUS.BAG IV ONE; SODIUM CHLORIDE 0.9% P/F 10 ML VIAL IJ ONE; SODIUM CHLORIDE 1,000 ML IV SCH; SODIUM CHLORIDE 1,000 ML IV STA; SODIUM CHLORIDE 500 ML IV STA; SODIUM PHOSPHATE/NA BIPHOS 133 ML ENEMA PR ONE; SODIUM PHOSPHATE/NA BIPHOS 133 ML ENEMA RC ONE; SUCCINYLCHOLINE CHLORIDE 200 MG/10 ML VIAL ONE; VANCOMYCIN 1 GRAM (PRE-DOCKED) 1,000 MG/250 ML BAG IVPB ONE; VANCOMYCIN 1 GRAM (PRE-DOCKED) 250 ML IVPB ONE; VANCOMYCIN 1 GRAM (PRE-DOCKED) 250 ML IVPB SCH; VANCOMYCIN 1,000 MG in DEXTROSE 5%-WATER - 250 ML IVPB ONE; VANCOMYCIN 250 MG/5 ML ORAL SOLUTION PO ONE; VASOPRESSIN 20 UNITS/ML VIAL IV ONE; WITCH HAZEL 50% (TUCKS) 40 PAD/JAR PAD TP PRN; [UNRECOGNIZED DRUG - SUPPLY] ONE; amLODIPine BESYLATE 10 MG TABLET (FP) GT ONE; amLODIPine BESYLATE 10 MG TABLET (FP) GT SCH; amLODIPine BESYLATE 5 MG TABLET (FP) ONE; ceFAZolin SODIUM 1 GM VIAL IVPB ONE; ceFAZolin SODIUM 1 GM VIAL ONE; ePHEDrine SULFATE 50 MG/1 ML AMPULE ONE; hydrALAZINE HCL 20 MG/ML VIAL IVPUSH ONE; hydrALAZINE HCL 20 MG/ML VIAL IVPUSH PRN; morphine CARPU-JECT 2 MG/1 ML DISP.SYRIN IM ONE; morphine CARPU-JECT 2 MG/1 ML DISP.SYRIN IVPUSH ONE; morphine CARPU-JECT 2 MG/1 ML DISP.SYRIN IVPUSH PRN; morphine CARPU-JECT 2 MG/1 ML DISP.SYRIN ONE; morphine CARPU-JECT 4 MG/1 ML DISP.SYRIN ONE
--- NOTE | 2017-04-21 12:43 | HOSP ---
Subjective - Review of Symptoms Events since last encounter: Summoned to patient's bedside. Patient lying supine on bed. There was no respirations, no chest rise, no lung sounds. There was no heart beat, no pulse. Corneal and gag reflexes were absent. The patient was pronounced at 3:15pm. Physical Examination Vital Signs: Vital Signs Temperature 98.6 F 04/20/17 11:05 Pulse Rate 102 H 04/20/17 11:05 Respiratory Rate 14 04/20/17 11:05 Blood Pressure 138/60 04/20/17 11:05 O2 Sat by Pulse Oximetry (%) 95 04/20/17 11:05 Labs: CBC, BMP 02/02/17 07:45 02/02/17 07:45
== END | disposition expired | DRG 4 ==
LOC: JER 06-26 21:01 → JERBED 06-27 00:03 → JICU 06-27 00:51 → J5S 07-28 19:08 → JICU 09-03 23:19 → J5S 09-10 22:07 → J7W 08-22 15:39
PROVIDERS: ADMIT Internal Medicine; ATTEND Nurse Practitioner Acute Care
PROC: 30233R1 Transfusion of Nonautologous Platelets into Peripheral Vein, Percutaneous Approach (ICD-10-PCS; 2015-06-27)
PROC: 0W3P8ZZ Control Bleeding in Gastrointestinal Tract, Via Natural or Artificial Opening Endoscopic (ICD-10-PCS; 2015-06-27)
PROC: 0D5E8ZZ Destruction of Large Intestine, Via Natural or Artificial Opening Endoscopic (ICD-10-PCS; 2015-06-27)
PROC: 5A1955Z Respiratory Ventilation, Greater than 96 Consecutive Hours (ICD-10-PCS; 2015-06-28)
PROC: 0BH17EZ Insertion of Endotracheal Airway into Trachea, Via Natural or Artificial Opening (ICD-10-PCS; 2015-06-28)
PROC: 0DTF0ZZ Resection of Right Large Intestine, Open Approach (ICD-10-PCS; principal; 2015-06-29 12:00)
PROC: 0B113F4 Bypass Trachea to Cutaneous with Tracheostomy Device, Percutaneous Approach (ICD-10-PCS; 2015-07-23)
PROC: 0BJ08ZZ Inspection of Tracheobronchial Tree, Via Natural or Artificial Opening Endoscopic (ICD-10-PCS; 2015-07-23)
PROC: 0DH63UZ Insertion of Feeding Device into Stomach, Percutaneous Approach (ICD-10-PCS; 2015-07-30)
PROC: 04V Lower Arteries, Restriction (ICD-10-PCS; 2015-09-03)
PROC: 06H03DZ Insertion of Intraluminal Device into Inferior Vena Cava, Percutaneous Approach (ICD-10-PCS; 2015-12-29)
PROC: 0DH63UZ Insertion of Feeding Device into Stomach, Percutaneous Approach (ICD-10-PCS; 2017-03-08)
PROC: 3E0G76Z Introduction of Nutritional Substance into Upper GI, Via Natural or Artificial Opening (ICD-10-PCS; 2017-03-08)
PROC: 0DP Gastrointestinal System, Removal (ICD-10-PCS; 2017-03-08)
PROC: 05HM33Z Insertion of Infusion Device into Right Internal Jugular Vein, Percutaneous Approach (ICD-10-PCS; 2017-04-14)
DX: K57.31 Diverticulosis of large intestine without perforation or abscess with bleeding (principal); J96.21 Acute and chronic respiratory failure with hypoxia; J69.0 Pneumonitis due to inhalation of food and vomit; L89.153 Pressure ulcer of sacral region, stage 3; I63.9 Cerebral infarction, unspecified; N17.9 Acute kidney failure, unspecified; G93.1 Anoxic brain damage, not elsewhere classified; E87.0 Hyperosmolality and hypernatremia; D62 Acute posthemorrhagic anemia; A04.7 Enterocolitis due to Clostridium difficile; J98.11 Atelectasis; L89.892 Pressure ulcer of other site, stage 2; N18.9 Chronic kidney disease, unspecified; E11.65 Type 2 diabetes mellitus with hyperglycemia; E86.0 Dehydration; E87.6 Hypokalemia; I12.9 Hypertensive chronic kidney disease with stage 1 through stage 4 chronic kidney disease, or unspecified chronic kidney disease; Z79.4 Long term (current) use of insulin; D72.829 Elevated white blood cell count, unspecified; K40.90 Unilateral inguinal hernia, without obstruction or gangrene, not specified as recurrent; R13.10 Dysphagia, unspecified; R41.82 Altered mental status, unspecified; R55 Syncope and collapse; E83.39 Other disorders of phosphorus metabolism; R00.0 Tachycardia, unspecified; K56.7 Ileus, unspecified; R53.2 Functional quadriplegia; R33.9 Retention of urine, unspecified; N13.30 Unspecified hydronephrosis; Z99.11 Dependence on respirator [ventilator] status; B96.4 Proteus (mirabilis) (morganii) as the cause of diseases classified elsewhere; N39.0 Urinary tract infection, site not specified; L89.323 Pressure ulcer of left buttock, stage 3; R64 Cachexia; Z68.27 Body mass index [BMI] 27.0-27.9, adult; A41.9 Sepsis, unspecified organism; D69.6 Thrombocytopenia, unspecified; E83.52 Hypercalcemia; B37.0 Candidal stomatitis; E87.2 Acidosis; R58 Hemorrhage, not elsewhere classified; I82.412 Acute embolism and thrombosis of left femoral vein
CPT/HCPCS: 31500; 36415; 36430; 36511; 36600; 37191; 37244; 49440; 70450-TC; 70486-TC; 71010-TC; 71260-TC; 72125-TC; 74000-TC; 74174-TC; 74176-TC; 74177-TC; 74240-TC; 76705-TC; 78708-TC; 80048; 80053; 80076; 81003; 81015; 82272; 82465; 82550; 82553; 82803; 82977; 83605; 83690; 83718; 83721; 83735; 84100; 84146; 84295; 84478; 84484; 85025; 85027; 85610; 85651; 85730; 86140; 86641; 86803; 86850; 86900; 86901; 86922; 87040; 87045; 87046; 87070; 87077; 87086; 87177; 87186; 87205; 87207; 87209; 87210; 87324; 87328; 87329; 87389; 87449; 87493; 88307-TC; 93005; 93010; 93306-TC; 93880-TC; 93970-TC; 94002; 94640; 94760; 95816; 97001-GP; 99285-25; A9562; E0372; G0480; J1644; J3480; P9016; P9017; P9034; P9038; P9058; Q2037; Q9967